=== PATIENT | female | born 1965 | race Caucasian/White ===

== ENCOUNTER 2018-12-07 09:43 | Inpatient (IN) | payer MEDICARE, OTHER ==
[2018-12-07] VITALS (8 sets, daily range): BP systolic 93–124; BP diastolic 53–58
[~2018-12-07] VITALS: Ht 157.5 cm; Wt 65.8 kg
[2018-12-07 10:34] LABS: BASOPHILS # (AUTO) 0.1 (0.0-0.1); BASOPHILS % 0.6 % (0.0-1.0); EOSINOPHILS # (AUTO) 0.7 (0.0-0.4); EOSINOPHILS % 9.2 % (0.0-6.0); LYMPHOCYTES # (AUTO) 2.4 (1.0-3.2); LYMPHOCYTES % 30.8 % (18.0-39.1); MEAN CORPUSCULAR HEMOGLOBIN 28.6 pg (28-32); MEAN CORPUSCULAR HGB CONC 30.8 g/dL (31-35); MEAN CORPUSCULAR VOLUME 92.6 fL (81-99); MONOCYTES # (AUTO) 0.8 (0.2-0.8); MONOCYTES % 10.4 % (4.4-11.3); NEUTROPHILS # (AUTO) 3.8 (2.1-6.9); NEUTROPHILS % 48.4 % (38.7-80.0); PLATELET COUNT 91 x10e3/uL (140-360); RED BLOOD COUNT 2.31 x10e6/uL (3.6-5.1); RED CELL DISTRIBUTION WIDTH 20.8 % (11.7-14.4)
[2018-12-07 10:49] LABS: ALBUMIN 0.9 g/dL (3.5-5.0); ALBUMIN/GLOBULIN RATIO 0.2 (0.8-2.0); ANION GAP 13.5 mmol/L (8-16); CALCIUM 8.8 mg/dL (8.4-10.2); CREATININE, SERUM 2.66 mg/dL (0.57-1.11); HEMOGLOBIN 6.6 g/dL (12.0-16.0); POTASSIUM 3.5 mmol/L (3.5-5.1)
[2018-12-07 10:50] LABS: HEMATOCRIT 21.4 % (34.2-44.1)
[2018-12-07] MEDS ORDERED: SODIUM CHLORIDE 0.9% 250ML 250 ML IV ONE (11:00)
[2018-12-07 11:01] LABS: BILIRUBIN,URINE NEGATIVE (NEGATIVE); CLARITY,URINE CLOUDY (CLEAR); COLOR,URINE YELLOW (YELLOW); KETONES,URINE NEGATIVE (NEGATIVE); LEUKOCYTE ESTERASE ,URINE 2+ (NEGATIVE); NITRITE,URINE NEGATIVE (NEGATIVE); PROTEIN,URINE DIPSTICK 1+ (NEGATIVE); URINE UROBILINOGEN 0.2 mg/dL (0.2 - 1)
[2018-12-07] MEDS ORDERED: SODIUM CHLORIDE 0.9% 1000ML 1,000 ML IV SCH (11:17)
[2018-12-07 11:19] LABS: WBC,URINE (MAN) 21-50 /HPF (0-5); YEAST,URINE FEW
[2018-12-07] MEDS ORDERED: ONDANSETRON HCL INJ 2MG/ML 2ML 2 MG/ML VIAL IV PRN (11:30)
[2018-12-07] MEDS: HYDROCODONE/APAP 10MG-325MG TAB PO PRN ×2 (11:46→19:22)
[2018-12-07 11:55] LABS: EPITHELIAL CELLS,URINE FEW /LPF
[2018-12-07 11:56] LABS: BACTERIA,URINE MODERATE /HPF
[2018-12-07] MEDS ORDERED: CEFTRIAXONE SOD 1 GM/NS 50 ML 50 ML IV SCH (12:00)
--- NOTE | 2018-12-07 12:34 | NUR ---
RCD PT FROM ER BY STRETCHER PT IS ALERT AND ORIENTED PT RESTING ON BED NO SIGNS OF ANY DISTRESS NOTED IV PATENT VITALS CHECKED ,ADMISSION ASSESSMENT DONE PRESSURE SORE STAGE IV ON THE SACRUM ,PEDRO ON LEFT LOWER ABDOMEN AND DOMINICK DRAIN OVER THERE WITH SEROUS DRAIN PT IN SPC CLOUDY URINE REDNESS CELLULITIS AND BULLAE ON BOTH LOWER LEG AND STAGE 3 WOUND ON RIGHT HEEL BOWEL MOVEMENT ON TODAY ,PT ON AIR MATRASS AND HEEL PROTECTOR INSTRUCTED PT REGARDING HOSPITAL POLICY AND ROUTINE BED LOW AND LOCKED CALL LIGHT IN REACH
[2018-12-07] MEDS ORDERED: SODIUM CHLORIDE 0.45% 1,000 ML IV ONE (13:15)
--- NOTE | 2018-12-07 13:54 | Pre Op History & Physical ---
CHIEF COMPLAINT: Anemia and decubitus ulcer. HISTORY OF PRESENT ILLNESS: The patient is a 53-year-old woman. She has a history of cirrhosis and thrombocytopenia. She has a history of chronic renal problems and some retroperitoneal bleeding. She has chronic renal insufficiency as a result of this. She was recently hospitalized at [facility] and required care in the intensive care unit with IV antibiotics. Hospital course was complicated by a hematoma in the abdominal wall. She required an evacuation and had a DOMINICK drain placed. She was subsequently sent to [facility] for IV antibiotics and wound care. On a routine blood draw, her hemoglobin was found to be 6.6 and she was transferred to the ER. The patient notes some fatigue. She also has a decubitus ulcer in her sacral area as well as some pain and swelling in her legs. PAST SURGICAL HISTORY: 1. Status post evacuation of abdominal wall hematoma. 2. History of prior urological problems. PAST MEDICAL HISTORY: 1. Cirrhosis. 2. Thrombocytopenia. 3. Decubitus ulcer. SOCIAL HISTORY: The patient is not an active smoker. She is not an active drinker. She lives in a [facility]. FAMILY HISTORY: Family history is noncontributory. REVIEW OF SYSTEMS: She has no fever. She has no headache. She has no neck pain. She is not having any chest pain. She does note some abdominal swelling, but no nausea or vomiting. She has no dyspnea. She has bilateral leg edema. She also has erythema and swelling of the legs. She has a decubitus ulcer in her sacral area. PHYSICAL EXAMINATION: VITAL SIGNS: The patient is afebrile. The blood pressure is 114/72 and the pulse is 96. Saturation is 98%. HEENT: Shows no facial swelling or erythema. The oropharynx is normal. LYMPHATIC: Shows no submandibular, cervical, or supraclavicular adenopathy. CARDIAC: Reveals regular rate and rhythm with normal S1 and S2. There are no murmurs or rubs. RESPIRATORY: Auscultation of lungs show decreased breath sounds at the bases. There is no wheezing. ABDOMEN: Soft. There is some ascites. There is still a DOMINICK drain in place. EXTREMITIES: There is a stage 3-4 decubitus ulcer in the sacrum. The patient also has chronic leg edema with some ulcerations. LABORATORY DATA: BUN to creatinine ratio is 54 to 2.66 and the total bilirubin is 2.2. The AST is 126 and the alkaline phosphatase is 903. The hemoglobin is 6.6 and the platelet count is 91. IMPRESSION: 1. Anemia secondary to chronic blood loss. 2. Cirrhosis with ascites. 3. Stage 3 decubitus ulcer. 4. Recent abdominal wall hematoma. 5. Chronic leg edema. 6. Chronic renal failure. PLAN: 1. The patient will receive a blood transfusion. 2. She will have a wound care consult and appropriate antibiotics. 3. General Surgery will see her regarding removal of the DOMINICK drain. She will also see Urology as followup. MD LIBAN Lake/KENAN /[id number]
[2018-12-07] MEDS: DOXYCYCLINE 100MG/NS 100ML 100 ML IV SCH (14:00)
--- NOTE | 2018-12-07 14:19 | NUR ---
CHIARA AND TALKED TO ARIAS REGALADO [facility] REGARDING HOME MEDICATION LIST SHE SAID SHE WILL FAX IT
--- NOTE | 2018-12-07 15:00 | NUR ---
WOUND CARE CONSULTATION - INITIAL EVALUATION Patient admitted for low blood count. HGB 6.6 HX: Hypothyroidism, Kidney Stones, UTI, Depression, GERD, CKD, Chronic Back Pain, Parkinson's, Neuropathy, anemia, liver cirrhosis. LABS: WBC7.86 HGB6.6 HCT21.4 NEUT%48.4 ALB0.9 Heart ECHO - in progress/ results pending PATIENT VISIT: - Patient in bed calm and in good spirits. - BLE Bright Redness, with Edema +3. - Presents with BLE ulcers to anterior aspect of lower legs and dorsal foot areas, open, non-draining but tacky upon touch, round. Verbalizes large blisters from sitting up on a chair for extended periods of time about 2-3 weeks ago. Verbalizes legs always tend to swell in a dependent position and thinks that is how blisters came up. - Bilateral Heels present annular, full thickness ulcerations with base of wound to periosteum, Wound bed dry, Edges rolled. Tender to touch. - Sacral area - full thickness wound down to periosteum. Oval Shaped. Edges pink and healthy. 100% granular. Moderate drainage. IMPRESSION: 1. Sacral - Stage IV- PU - Present On Admission 2. BLE Anterior - Bullae w/ PVD 3. Left Heel -Non-Healing Stage IV- PU - Present On Admission 4. Right Heel - Non- Healing Stage IV - PU with PVD- Present on Admission RECOMMENDATION: 1. Sacral - Stage IV- PU - Present On Admission - Cleanse wound with NS and 4x4 gauze - Apply Puracol Ag+ then Cover with Maxsorb Ag+ and Allevyn Foam Sacrum Dressing Daily 2. BLE Anterior - Bullae/ PVD - - Wash BLE with Hibiclens Soap and NS Daily - Apply Polysporin and Cover open areas with Xeroform Gauze and Secure with Kerlix Wrap Daily 3. Bilateral Heel Ulcers - Stage IV- PU - POA - Cleanse wounds with NS and 4x4 gauze - Apply Silvasorb Gel and Cover with Allevyn Foam Heel Dressing Daily. 4. Continue Alternating Pressure Air Mattress 5. Turn and Reposition every 2 hours using turning clock schedule. 6. Bilateral Heelmedix Boots heel protectors while in bed. 7. Maintain HOB no greater than 30 degrees as tolerated. 8. Strict PUP Protocol Thank you for consulting with Wound Care. Addendum: 12/07/18 at 1516 by Michael Buckner RN Amended: Links added.
--- NOTE | 2018-12-07 15:00 | NUR ---
LAB SAID PT IN NEGATIVE GROUP THEY WORKING FOR THE BLOOD
--- NOTE | 2018-12-07 15:00 | NUR ---
FAXED THE AUTHORIZATION OF OLD RECORDS TO [facility]
--- NOTE | 2018-12-07 16:15 | Diagnostic Imaging Report ---
EXAM: US ABDOMEN COMPLETE DATE: 12/07/2018 12:00 AM Time stamp on exam: INDICATION: Cirrhosis COMPARISON: None TECHNIQUE: Transverse and longitudinal brunson scale and color doppler sonographic images of the upper abdomen were obtained. FINDINGS: LIVER 12.1 cm in the right midclavicular line. Coarse echogenicity, nodular contour, no masses. SPLEEN Approximately 15 cm in maximum diameter. Normal echogenicity, no masses. GALLBLADDER Multiple shadowing calculi. The gallbladder wall is thickened, measuring 5 mm, without pericholecystic fluid. Negative sonographic Real's sign. BILE DUCTS No intra nor extra-hepatic biliary dilation. Common bile duct measures 0.5 cm PANCREAS: Poorly visualized. RIGHT KIDNEY: 8.2 cm Echogenicity: Normal Collecting System: Mild hydronephrosis. Stones: None Cyst/Mass: None LEFT KIDNEY: Poorly visualized. VESSELS: Aorta: Nonaneurysmal Inferior Vena Cava: Patent Main Portal Vein: 0.7 cm, normal size with hepatopetal flow. FREE FLUID: Small volume ascites throughout the abdomen. IMPRESSION: Cirrhosis with portal hypertension evidenced by small volume ascites and splenomegaly. Cholelithiasis with gallbladder wall thickening, likely related to underlying liver disease and/or hypoproteinemia in the absence of a positive sonographic Real sign. Mild right hydronephrosis of uncertain etiology. No proximal obstructing calculus identified. Poor visualization of midline structures and the left kidney as above. Signed by: Dr. Alvarado Casas M.D. on 12/07/2018 4:11 PM
[2018-12-07] MEDS ORDERED: REMERON15 M1 PEG (17:02)
[2018-12-07] MEDS ORDERED: SUCRALFATE1 GM PO (17:05)
[2018-12-07] MEDS ORDERED: ZINC SULFATE220 MG PO (17:05)
[2018-12-07] MEDS ORDERED: VITAMIN B-1100 M1 PO (17:05)
[2018-12-07] MEDS ORDERED: MULTI-VITAMIN1 EACH PO (17:05)
[2018-12-07] MEDS ORDERED: XIFAXAN550 MG PO (17:05)
[2018-12-07] MEDS ORDERED: ASCORBIC ACID500 MG PO (17:05)
[2018-12-07] MEDS ORDERED: NORCO 5-325 TA1 EACH PO (17:05)
[2018-12-07] MEDS ORDERED: ULTRAM50 MG PO (17:05)
[2018-12-07] MEDS ORDERED: LEVOTHYROXINE50 MCG PO (17:56)
[2018-12-07] MEDS ORDERED: ASPIR 8181 MG PO (17:56)
[2018-12-07] MEDS ORDERED: FAMOTIDINE20 MG PO (17:56)
[2018-12-07] MEDS ORDERED: FUROSEMIDE40 MG PO (17:56)
[2018-12-07] MEDS ORDERED: FERROUS SULFAT325 M1 PO (17:56)
[2018-12-07] MEDS ORDERED: WELLBUTRIN SR150 MG PO (17:56)
--- NOTE | 2018-12-07 18:01 | NUR ---
TALKED TO LAB IS THE BLOOD IS READY TO TRANSFUSE THEY SAID NOT YET
--- NOTE | 2018-12-07 18:39 | NUR ---
PT RESTING ON BED BED SIDE REPORT GIVEN TO ONCOMING NURSE
--- NOTE | 2018-12-07 20:47 | Diagnostic Imaging Report ---
Exam: Abdominal film Clinical History: Evaluate left stones and stent Comparison: None. DISCUSSION: Exam is markedly limited by patient rotation. Left double-J internal ureteral stent in place with the upper pigtail projecting in the region of the left renal pelvis and lower pigtail in the region of the bladder. Multiple radiopaque densities project over the right renal shadow, with a multilobulated radiopaque density in projecting in the superior aspect, likely representing portion of a staghorn calculus. No significant encrustation. A radiopaque catheter projects over the left lower abdomen with tip terminating in the region of the pelvis. No acute bony abnormalities. IVC filter in place. Likely left-sided pleural effusion and associated atelectatic changes. IMPRESSION: 1. Left double-J internal ureteral stent in place. 2. Left staghorn calculus. The staff physician below has personally reviewed this exam on the date of dictation. Signed by: Dr. Ivan Porras M.D. on 12/07/2018 8:43 PM
[2018-12-07] MEDS ORDERED: SODIUM CHLORIDE 0.9% 250ML 250 ML ONE (21:52)
--- NOTE | 2018-12-07 22:20 | NUR ---
1st unit of PRBC given via JACKELINE PICC line.
[2018-12-07] MEDS ORDERED: MORPHINE SULFATE INJ 4 MG/ML INJ 1ML IV PRN (22:45)
--- NOTE | 2018-12-07 22:50 | NUR ---
Spoke with Dr. Dill regarding patients pain level. Ok to give morphine 3mg prn q4.
[2018-12-08] VITALS (7 sets, daily range): BP systolic 93–106; BP diastolic 46–56
--- NOTE | 2018-12-08 01:10 | NUR ---
1st unit of blood PRBC completed at this time. Patient tolerated well. RADHA.
[2018-12-08] MEDS: DOXYCYCLINE 100MG/NS 100ML 100 ML IV SCH ×2 (01:23→13:00)
[2018-12-08] MEDS ORDERED: SODIUM CHLORIDE 0.9% 250ML 250 ML ONE (02:29)
--- NOTE | 2018-12-08 02:40 | NUR ---
2nd Unit of PRBC started at this time. RADHA. Will continue to monitor. Denies pain at this time.
[2018-12-08] MEDS ORDERED: SODIUM CHLORIDE 0.9% 1000ML 1,000 ML ONE (05:09)
--- NOTE | 2018-12-08 05:17 | NUR ---
2nd PRBC transfusion completed at this time. RADHA.
--- NOTE | 2018-12-08 06:45 | NUR ---
Dr. Mckeon here for rounding. Stated he will monitor mervat in the abd and will possible remove in 24 hrs.
--- NOTE | 2018-12-08 07:08 | Consultation ---
DATE OF CONSULTATION: 12/08/2018 REFERRING PHYSICIAN: Dr. Dalton Dill. HISTORY OF PRESENT ILLNESS: The patient is a 53-year-old female known to me. She was hospitalized at [facility] recently with multiple medical problems, but was seen by me for a large abdominal wall hematoma, which required surgery to evacuate the hematoma. [facility], was admitted to the hospital here with anemia. She has a drain in still from the evacuation of hematoma. The patient has no specific complaints. PAST MEDICAL HISTORY: Detailed in chart from recent admissions. PHYSICAL EXAMINATION: The patient is awake and alert. The abdomen is mildly distended, but soft. There is a surgical wound on the left side of the abdomen with mervat in place. There is a drain in place. The drain has serous fluid output at 150 mL in 12 hours. ASSESSMENT: A 53-year-old female, status post evacuation hematoma from abdominal wall. Frederick may be removed. We will monitor the output from the drain and likely this can be removed soon. Thank you for asking me to see Ms. Leach. MD YANG Dorado/KENAN /[id number]
--- NOTE | 2018-12-08 07:10 | NUR ---
RCD PT AT BED PT IS ALERT AND ORIENTED PT RESTING ON BED IV PATENT BED KEANE DRAINING BY GRAVITY CLOUDY URINE TURNED THE PT TO RIGHT SIDE LOW AND LOCKED CALL LIGHT IN REACH
[2018-12-08 08:14] LABS: BASOPHILS # (AUTO) 0.1 (0.0-0.1); BASOPHILS % 0.8 % (0.0-1.0); EOSINOPHILS # (AUTO) 0.6 (0.0-0.4); EOSINOPHILS % 9.1 % (0.0-6.0); HEMATOCRIT 25.1 % (34.2-44.1); LYMPHOCYTES # (AUTO) 2.2 (1.0-3.2); LYMPHOCYTES % 33.1 % (18.0-39.1); MEAN CORPUSCULAR HEMOGLOBIN 28.9 pg (28-32); MEAN CORPUSCULAR HGB CONC 31.9 g/dL (31-35); MEAN CORPUSCULAR VOLUME 90.6 fL (81-99); MONOCYTES # (AUTO) 0.6 (0.2-0.8); MONOCYTES % 9.3 % (4.4-11.3); NEUTROPHILS # (AUTO) 3.1 (2.1-6.9); NEUTROPHILS % 47.1 % (38.7-80.0); PLATELET COUNT 88 x10e3/uL (140-360); RED BLOOD COUNT 2.77 x10e6/uL (3.6-5.1); RED CELL DISTRIBUTION WIDTH 19.2 % (11.7-14.4)
[2018-12-08 08:32] LABS: ALBUMIN 0.9 g/dL (3.5-5.0); ALBUMIN/GLOBULIN RATIO 0.2 (0.8-2.0); CREATININE, SERUM 2.42 mg/dL (0.57-1.11)
[2018-12-08] MEDS: SILVER ANTIMICROBIAL WOUND GEL 45ML TP SCH (09:00)
[2018-12-08] MEDS: BACITRACIN/POLYMYXIN 30 GM OINT TP SCH (09:00)
--- NOTE | 2018-12-08 10:00 | NUR ---
PT ON HEEL MEDIX BOOTS ON BOTH LEGS
[2018-12-08] MEDS ORDERED: BUPROPION HCL SR 150 MG TAB PO SCH (14:45)
[2018-12-08] MEDS: RIFAXIMIN 550 MG TABLET PO SCH (14:45)
[2018-12-08] MEDS: HYDROCODONE/APAP 5MG-325MG TAB PO PRN ×2 (16:07→23:09)
--- NOTE | 2018-12-08 16:14 | NUR ---
Nutrition Intervention Note RD Recommendation(s) for Physician: -Continue current diet as ordered -Rec Damien BID for wound healing -Rec Ensure Compact TID to increase protein-calorie intake -Continue MVi w/ minerals, vitamin C, zinc sulfate for 10 days to support healing Plan of Care: RD following, monitoring for tolerance and adequacy, ONS supplement Nutrition reason for involvement: MD Consult RD Assessment (12/08) 53yo F, who was admitted for anemia. Pt was discussed during AM rounds. Pt came from [facility] and in bedbound status. Pt had a recent surgery for abdominal wall hematoma with mervat present; GI following. Abd US showed cirrhosis with small amount of ascites. Currently on IVF and abx. Wound care consulted for multiple pressure ulcers. Visited pt in the room. Pt reported good appetite without any nausea or vomiting. Pt ate 100% of her lunch today, per observation. Pt has some missing teeth but refused texture modification. Pt denied any swallowing difficulty. Pt reported some weight loss with UBW ~180lbs (unknown time period when weight loss started). No physical sign of muscle and fat loss per NFPA. RD offered ONS recommended above and pt was agreeable with plan. Will continue to monitor and follow. Principal Problems/Diagnoses: 1. Anemia secondary to chronic blood loss. 2. Cirrhosis with ascites. 3. Stage 3 decubitus ulcer. 4. Recent abdominal wall hematoma. PMH: Hypothyroidism, Kidney Stones, UTI, Depression, GERD, CKD, Chronic Back Pain, Parkinson's, Neuropathy, anemia, liver cirrhosis. GI: abdomen soft, non-tender, round, flatus present Skin: 1. Sacral - Stage IV- PU - Present On Admission 2. BLE Anterior - Bullae w/ PVD 3. Left Heel -Non-Healing Stage IV- PU - Present On Admission 4. Right Heel - Non- Healing Stage IV - PU with PVD- Present on Admission Labs: (12/08) K 3.0 L, BUN 53 H, Creatinine 2.42 H, Ca 8.0 L, AST 100 H, Alk phos 883 H Meds: reviewed Ht: 62in Wt: 145lb BMI: 26.5kg/m2 IBW: 110lb Malnutrition Evaluation (12/08) The patient does not meet criteria for a specified degree of malnutrition at this time. Will re-evaluate at follow-up as appropriate. Nutrition Prescription (Diet Order): regular diet Estimated Nutritional Needs: Calories: 1320 1650kcal (20-25kcal/kg/d) Weight used : actual BW Protein : 132 165g(2-2.5g/kg/d) Weight used: actual BW Diet Adequacy: Meeting calorie needs, Not meeting protein needs Diet Education Needs Assessment: Diet education indicated, but patient not appropriate for education at this time. Nutrition Care Level: mod Nutrition Diagnosis: Increased protein needs related to altered skin integrity as evidenced by multiple pressure ulcers. Goal: Patient will meet 75-100% of estimated needs by follow up Progress: N/A Interventions: General healthful diet, Commercial beverage, Commercial food, Multivitamin/mineral supplement therapy Monitoring/Evaluation: Total energy intake, Total protein intake, Modified diet, Liquid supplement, Weight change Signed: Maxine Hernández MS, RD, LD
[2018-12-08] MEDS: SUCRALFATE 1 GM TAB PO SCH ×2 (16:30→20:02)
[2018-12-08] MEDS: FERROUS SULFATE 325 MG TAB PO SCH (16:48)
--- NOTE | 2018-12-08 16:50 | Progress Note ---
DATE: SUBJECTIVE: The patient had a blood transfusion yesterday. Her hemoglobin has increased to 8. She is not complaining of pain. She has no fevers. She was seen by Urology and General Surgery yesterday. PHYSICAL EXAMINATION: VITAL SIGNS: The patient is afebrile. The blood pressure is 93/55 and the saturation is 97%. The pulse is 89. HEENT: Shows no facial swelling or erythema. The nasal mucosa is normal. LYMPHATIC: Shows no submandibular, cervical, or supraclavicular adenopathy. CARDIAC: Reveals regular rate and rhythm with normal S1 and S2. There are no murmurs or rubs. LUNGS: Auscultation of lungs reveals decreased breath sounds at the bases. There is no wheezing. ABDOMEN: Soft, nontender. There is no rebound or guarding. There is a Rashi-Mckinney drain in the lower abdomen from the prior anterior abdominal wall hematoma evacuation. She has a decubitus ulcer stage IV on her sacral area. IMPRESSION: 1. Anemia secondary to chronic blood loss requiring transfusion. 2. Cirrhosis with ascites. 3. Thrombocytopenia. 4. Stage 4 decubitus ulcer of the sacrum. 5. Recent abdominal wall hematoma with a Rashi-Mckinney drain in place. 6. Stage 1 decubitus ulcers on the pretibial areas in both legs. 7. Stage 4 chronic renal failure. 8. Moderate protein-calorie malnutrition. PLAN: 1. Continue wound care. 2. General Surgery saw the patient and will remove the Rashi-Mckinney drain shortly. 3. Continue to monitor electrolytes and renal status. 4. Wound care. 5. Nutritional consultation. 6. Physical therapy. MD LIBAN Lake/KENAN /[id number]
--- NOTE | 2018-12-08 19:00 | NUR ---
PT RESTING ON BED BED SIDE REPORT GIVEN TO ONCOMING NURSE
[2018-12-08] MEDS: BUPROPION HCL 100 MG TAB PO SCH (20:02)
--- NOTE | 2018-12-08 20:40 | Consultation ---
DATE OF CONSULTATION: REASON FOR CONSULTATION: UTI. HISTORY OF PRESENT ILLNESS: This patient who is a very pleasant 53-year-old white female, who has history of liver cirrhosis, history of thrombocytopenia, history of chronic renal disease, and chronic renal insufficiency. She was recently in [facility], had to be in intensive care unit on IV antibiotic. She had hematoma in abdominal wall. She required evacuation, had DOMINICK drain placed. She was then transferred to [facility] for IV antibiotic and wound care. She is transferred back here because her hemoglobin was 6.6. The patient is currently lying in bed comfortably. She says she is feeling better. She is fatigued overall. There is no fever, no chills. She has been getting progressively debilitated and she developed decubitus ulcer in sacral area. As mentioned above, she is currently lying in bed comfortably. She does have a chronic Gibson catheter. PAST MEDICAL HISTORY: Liver cirrhosis, thrombocytopenia, and decubitus ulcer. PAST SURGICAL HISTORY: Evacuation of abdominal wall hematoma and several urological procedures before. ALLERGIES: NKA. SOCIAL HISTORY: There is no smoking, drug abuse, or alcohol abuse. Currently from a snf. FAMILY HISTORY: Noncontributory. REVIEW OF SYSTEMS: HEENT: Negative. PULMONARY: Negative. CARDIAC: Negative. : Negative. GENERAL: Just weak. No fever. No chills. LABORATORY DATA: Reviewed. Her wound culture, no growth. Her hemoglobin when she first came, was 6.6, today is 8.0. Her sodium 142, potassium 3.0, creatinine of 2.42, glucose 76, and alkaline phosphatase is 883. PHYSICAL EXAMINATION: GENERAL: She is currently alert, oriented, does not seem to be in acute distress. VITAL SIGNS: Stable, currently afebrile. HEENT: She does not appear icteric. NECK: Supple. No JVD. No lymphadenopathy. No thyromegaly. CHEST: Clear bilateral. HEART: S1 and S2. No S3, S4, or murmur. ABDOMEN: Soft. Bowel sounds present. No tenderness. No hepatosplenomegaly. DOMINICK drain as above. EXTREMITIES: No edema. SKIN: No rash. IMPRESSION: 1. Abdominal wall hematoma drained, now with serosanguineous drainage. I believe the drainage at present time is because the patient does have history of liver cirrhosis with ascites and third spacing. 2. Liver cirrhosis, I presume it has been worked up before. We will discuss with Dr. Dill. 3. Stage III decubitus ulcer. 4. Chronic kidney disease. 5. Bilateral lower extremities edema. 6. Anemia on admission, probably GI bleed, transfuse, seem to be stable. From Infectious Disease point of view, I think we can discontinue antibiotic. Continue with local care. 7. Bacteriuria. The patient with chronic Gibson catheter. 8. We will discuss with attending. We can discontinue antibiotic and observe the patient clinically for now. MD TULIO Jesus/MODL /[id number]
[2018-12-09] VITALS (8 sets, daily range): BP systolic 100–127; BP diastolic 56–64
[2018-12-09] MEDS: RIFAXIMIN 550 MG TABLET PO SCH ×2 (03:45→15:34)
[2018-12-09] MEDS: LEVOTHYROXINE SODIUM 50 MCG TAB PO SCH (05:54)
[2018-12-09] MEDS: HYDROCODONE/APAP 5MG-325MG TAB PO PRN (05:55)
[2018-12-09 05:56] LABS: BASOPHILS # (AUTO) 0.1 (0.0-0.1); BASOPHILS % 0.7 % (0.0-1.0); EOSINOPHILS # (AUTO) 0.5 (0.0-0.4); HEMATOCRIT 24.7 % (34.2-44.1); HEMOGLOBIN 7.8 g/dL (12.0-16.0); LYMPHOCYTES # (AUTO) 2.2 (1.0-3.2); LYMPHOCYTES % 32.3 % (18.0-39.1); MEAN CORPUSCULAR HEMOGLOBIN 28.8 pg (28-32); MEAN CORPUSCULAR HGB CONC 31.6 g/dL (31-35); MEAN CORPUSCULAR VOLUME 91.1 fL (81-99); MONOCYTES # (AUTO) 0.6 (0.2-0.8); MONOCYTES % 8.3 % (4.4-11.3); NEUTROPHILS # (AUTO) 3.4 (2.1-6.9); NEUTROPHILS % 50.1 % (38.7-80.0); PLATELET COUNT 96 x10e3/uL (140-360); RED BLOOD COUNT 2.71 x10e6/uL (3.6-5.1); RED CELL DISTRIBUTION WIDTH 19.7 % (11.7-14.4)
[2018-12-09 06:14] LABS: ALBUMIN 0.9 g/dL (3.5-5.0); ALBUMIN/GLOBULIN RATIO 0.2 (0.8-2.0); ANION GAP 11.1 mmol/L (8-16); CALCIUM 8.1 mg/dL (8.4-10.2); CREATININE, SERUM 2.32 mg/dL (0.57-1.11); POTASSIUM 3.1 mmol/L (3.5-5.1)
--- NOTE | 2018-12-09 09:00 | NUR ---
Dr. Rui Luna replaced suprapubic catheter at this time. Patient tolerated well. Clamped tubing for urine culture. Will collect.
[2018-12-09] MEDS: BUPROPION HCL 100 MG TAB PO SCH ×2 (10:37→20:20)
[2018-12-09] MEDS: FERROUS SULFATE 325 MG TAB PO SCH ×2 (10:37→17:20)
[2018-12-09] MEDS: ZINC SULFATE 220 MG CAP PO SCH (10:37)
[2018-12-09] MEDS: ASCORBIC ACID 500 MG TAB PO SCH (10:37)
[2018-12-09] MEDS: ASPIRIN 81 MG CHEW TAB PO SCH (10:37)
[2018-12-09] MEDS: POTASSIUM CHLORIDE 20 MEQ TAB CR PO SCH (10:37)
[2018-12-09] MEDS: MULTIVITAMINS/MINERALS TAB PO SCH (10:37)
[2018-12-09] MEDS: SUCRALFATE 1 GM TAB PO SCH ×4 (10:37→20:20)
--- NOTE | 2018-12-09 12:54 | Progress Note ---
DATE: SUBJECTIVE: The patient had a low-grade temperature to 99.8 this morning. She is not complaining of any cough or chest pain. Her DOMINICK drain was removed by General Surgery. Her suprapubic catheter was changed by Urology. OBJECTIVE: VITAL SIGNS: Blood pressure is 110/60 and saturation is 94%. The pulse is 79. HEENT: Shows no facial swelling or erythema. The nasal mucosa is normal. The oropharynx is normal. LYMPHATIC: Shows no submandibular, cervical, or supraclavicular adenopathy. CARDIAC: Reveals a regular rate and rhythm with normal S1, S2. There are no murmurs or rubs heard. HEART: Auscultation of lungs reveals decreased breath sounds at the bases. There is no wheezing. ABDOMEN: Soft, nontender. There is no rebound or guarding. EXTREMITIES: Shows chronic edema in the lower extremities and stage I breakdown on the tibial surfaces. Examination of sacrum shows stage IV decubitus ulcer. IMPRESSION: 1. Cirrhosis with portal hypertension and splenomegaly. 2. Thrombocytopenia. 3. Stage IV decubitus ulcer. 4. Chronic renal failure, stage 4. 5. Anemia, unspecified. PLAN: 1. Continue to observe the patient off antibiotics. 2. Repeat cultures are pending. 3. Continue current wound care. 4. Physical Therapy. 5. Supplemental nutrition. 6. Continue current regimen for cirrhosis. Dalton Dill MD LMH/MODL /[id number]
[2018-12-09] MEDS: SILVER ANTIMICROBIAL WOUND GEL 45ML TP SCH (12:59)
[2018-12-09] MEDS: BACITRACIN/POLYMYXIN 30 GM OINT TP SCH (12:59)
--- NOTE | 2018-12-09 13:01 | NUR ---
WOUND CARE CONSULTATION - INITIAL EVALUATION Patient admitted for low blood count. HGB 6.6 HX: Hypothyroidism, Kidney Stones, UTI, Depression, GERD, CKD, Chronic Back Pain, Parkinson's, Neuropathy, anemia, liver cirrhosis. Dr. Mckeon on case for recent SX history of Abd Hematoma Tx. LABS: WBC7.86 HGB6.6 HCT21.4 NEUT%48.4 ALB0.9 PATIENT VISIT: - Patient in bed calm and in good spirits. - BLE Bright Redness, with Edema +3. BLE weeping on dependent position. Patient at bedside dangling feet. Drainage to Dorsal Foot areas. - Recent history of using Unna Boots but unable to tolerate and had them removed. Verbalizes not to want compression. It is too painful. - Bilateral Heels present annular, full thickness ulcerations with base of wound to periosteum, Wound bed moist, Edges rolled. Tender to touch. Appears to be improving. - BLE Ulcerations improving. - Sacral area - full thickness wound down to periosteum. Oval Shaped. Edges pink and healthy. 100% granular. Moderate drainage. IMPRESSION: 1. Sacral - Stage IV- PU - Present On Admission ( HEALING SLOW) 2. BLE Anterior - Bullae w/ PVD ( HEALING SLOW) 3. Left Heel -Non-Healing Stage IV- PU - Present On Admission ( HEALING SLOW) 4. Right Heel - Non- Healing Stage IV - PU with PVD- Present on Admission ( HEALING SLOW) RECOMMENDATION: Continue Current Treatment Plan: Safe to discharge with current treatment orders. 1. Sacral - Stage IV- PU - Present On Admission - Cleanse wound with NS and 4x4 gauze - Apply Puracol Ag+ then Cover with Maxsorb Ag+ and Allevyn Foam Sacrum Dressing Daily 2. BLE Anterior - Bullae/ PVD - - Wash BLE with Hibiclens Soap and NS Daily - Apply Polysporin and Cover open areas with Xeroform Gauze and Secure with Kerlix Wrap Daily 3. Bilateral Heel Ulcers - Stage IV- PU - POA - Cleanse wounds with NS and 4x4 gauze - Apply Silvasorb Gel and Cover with Allevyn Foam Heel Dressing Daily. 4. Continue Alternating Pressure Air Mattress 5. Turn and Reposition every 2 hours using turning clock schedule. 6. Bilateral Heelmedix Boots heel protectors while in bed. 7. Maintain HOB no greater than 30 degrees as tolerated. 8. Strict PUP Protocol Thank you for consulting with Wound Care. Addendum: 12/09/18 at 1307 by Michael Buckner RN Amended: Links added. Addendum: 12/09/18 at 1309 by Michael Buckner RN FOLLOW UP VISIT
--- NOTE | 2018-12-09 15:07 | NUR ---
PT SIGNED CHOICE TO RETURN BACK TO [facility], FAXED CLINICALS TO FACILITY, SHE ALSO WAS EDUCATED ABOUT IMM SIGNED COPY FILED I CHART AND LEFT COPY AT BEDSIDE WITH PT FOR HER RECORDS. SHE ASKED FOR CLOTHING DONATIONS I REDIRECTED HER TO HER FACILITY FOR THAT REFERRAL WE DO NOT HAVE A COMMUNITY CLOSET AVAILABLE.
[2018-12-09] MEDS: HYDROCODONE/APAP 10MG-325MG TAB PO PRN (20:41)
[2018-12-10] VITALS (7 sets, daily range): BP systolic 94–126; BP diastolic 53–80
[2018-12-10] MEDS: RIFAXIMIN 550 MG TABLET PO SCH ×2 (03:10→15:04)
[2018-12-10] MEDS: LEVOTHYROXINE SODIUM 50 MCG TAB PO SCH (05:20)
[2018-12-10] MEDS: HYDROCODONE/APAP 10MG-325MG TAB PO PRN ×3 (05:22→20:35)
[2018-12-10] MEDS: SUCRALFATE 1 GM TAB PO SCH ×4 (09:17→20:34)
[2018-12-10] MEDS: POTASSIUM CHLORIDE 20 MEQ TAB CR PO SCH (09:17)
[2018-12-10] MEDS: ASCORBIC ACID 500 MG TAB PO SCH (09:17)
[2018-12-10] MEDS: ASPIRIN 81 MG CHEW TAB PO SCH (09:17)
[2018-12-10] MEDS: FERROUS SULFATE 325 MG TAB PO SCH ×2 (09:17→17:20)
[2018-12-10] MEDS: ZINC SULFATE 220 MG CAP PO SCH (09:17)
[2018-12-10] MEDS: BUPROPION HCL 100 MG TAB PO SCH ×2 (09:17→20:34)
[2018-12-10] MEDS: MULTIVITAMINS/MINERALS TAB PO SCH (09:17)
[2018-12-10] MEDS: BACITRACIN/POLYMYXIN 30 GM OINT TP SCH (13:14)
[2018-12-10] MEDS: SILVER ANTIMICROBIAL WOUND GEL 45ML TP SCH (13:15)
--- NOTE | 2018-12-10 16:25 | Discharge Summary ---
DISCHARGE DIAGNOSES: 1. Cirrhosis with portal hypertension and splenomegaly. 2. Thrombocytopenia. 3. Stage IV decubitus ulcer on the sacrum. 4. Chronic renal failure, stage 4. 5. Anemia, unspecified. 6. 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 CONSULTING PHYSICIANS: 1. Dr. Black of Infectious Disease. 2. Dr. Luna of Urology. 3. Dr. Mckeon of General Surgery. DISCHARGE MEDICATIONS: 1. Aspirin 81 mg p.o. daily. 2. Wellbutrin SR 125 mg p.o. q.12h. 3. Vitamin C 500 mg p.o. daily. 4. Famotidine 20 mg p.o. b.i.d. 5. Ferrous sulfate 325 mg p.o. b.i.d. 6. Furosemide 40 mg p.o. daily. 7. Fountain 5/325 one p.o. q.6h. p.r.n. 8. Synthroid 50 mcg p.o. daily. 9. Remeron 7.5 mg p.o. at bedtime. 10. Rifaximin 550 mg p.o. q.12h. 11. Sucralfate 1 p.o. at bedtime and before meals. 12. Tramadol p.r.n. 13. Zinc sulfate 220 mg p.o. daily. HISTORY OF PRESENT ILLNESS: The patient is a 53-year-old woman. She has history of cirrhosis and thrombocytopenia. She has chronic pyelonephritis and chronic renal insufficiency. She also has a history of abdominal bleed that required evacuation. She has been at [facility]. She came in because her hemoglobin was found to be 6.6. HOSPITAL COURSE: The patient was admitted. She received a blood transfusion. She was subsequently seen by General Surgery. The Rashi-Mckinney drain was removed from a prior surgical site. She was also seen in consultation by Urology and by Wound Care. The patient was seen by Infectious Disease. The vancomycin-resistant Enterococcus in her urine was felt to be a chronic colonizer. Her suprapubic catheter was changed. She was observed off antibiotics and had no fevers. She received physical therapy. DISPOSITION: The patient will be discharged to [facility]. MD LIBAN Lake/MODL /[id number]
--- NOTE | 2018-12-10 19:45 | NUR ---
attempted to call for report x2. No one picked up the phone. Notified greenhouse instructor and case management
--- NOTE | 2018-12-10 20:10 | NUR ---
received call ed from Court Year. Gave report to supervisor [employer] Maxine. notified charge nurse and called ambulance
--- NOTE | 2018-12-10 21:10 | NUR ---
EMS HERE TO PROBLEM MANAGER PT AND TRANSFER TO COURT Y[facility] PER MD ORDER WITH ALL BELONGING. VITAL SIGN STABLE AT THIS TIME
== END 2018-12-10 22:00 | DRG 811 ==
LOC: ER 09:43 → ERHOLD 11:30 → MED/SURG2 12:37
PROVIDERS: ADMIT Internal Medicine Critical Care Medicine; ATTEND Internal Medicine Critical Care Medicine
PROC: 30233N1 Transfusion of Nonautologous Red Blood Cells into Peripheral Vein, Percutaneous Approach (ICD-10-PCS; principal; 2018-12-07)
DX: D50.0 Iron deficiency anemia secondary to blood loss (chronic) (principal); L89.154 Pressure ulcer of sacral region, stage 4; R18.8 Other ascites; N18.4 Chronic kidney disease, stage 4 (severe); E44.0 Moderate protein-calorie malnutrition; K76.6 Portal hypertension; R31.29 Other microscopic hematuria; Z98.890 Other specified postprocedural states; K74.60 Unspecified cirrhosis of liver; R82.71 Bacteriuria; D69.6 Thrombocytopenia, unspecified; L89.891 Pressure ulcer of other site, stage 1; Z68.26 Body mass index [BMI] 26.0-26.9, adult; R16.1 Splenomegaly, not elsewhere classified; B95.2 Enterococcus as the cause of diseases classified elsewhere; Z16.21 Resistance to vancomycin; E03.9 Hypothyroidism, unspecified; Z79.82 Long term (current) use of aspirin
CPT/HCPCS: 36415; 74018; 76700; 80053; 81001; 85025; 86850; 86900; 86920; 87071; 87086; 87186; 87205; 93306; 97139; 99284; J0696; J2270; J7030; J7050; P9016

== ENCOUNTER 2019-01-03 02:04 | Inpatient (IN) | payer MEDICARE, OTHER ==
[2019-01-03] VITALS (14 sets, daily range): BP systolic 84–96; BP diastolic 47–67
[~2019-01-03] VITALS: Ht 157.5 cm; Wt 81.6 kg
[~2019-01-03 02:04] MED LIST: ASCORBIC ACID500 MG PO; ASPIR 8181 MG PO; FAMOTIDINE20 MG PO; FERROUS SULFAT325 M1 PO; FUROSEMIDE40 MG PO; LEVOTHYROXINE50 MCG PO; MULTI-VITAMIN1 EACH PO; NORCO 5-325 TA1 EACH PO; REMERON15 M1 PEG; SUCRALFATE1 GM PO; ULTRAM50 MG PO; VITAMIN B-1100 M1 PO; WELLBUTRIN SR150 MG PO; XIFAXAN550 MG PO; ZINC SULFATE220 MG PO
[2019-01-03] MEDS ORDERED: ETOMIDATE 2 MG/ML 10 ML INJ IV STA (02:16)
[2019-01-03] MEDS ORDERED: SUCCINYLCHOLINE 200 MG/10 ML SYR IV STA (02:16)
[2019-01-03] MEDS ORDERED: PROPOFOL IV EMULSION 10 MG/ML 50 ML VIAL IV PRN (02:30)
[2019-01-03] MEDS ORDERED: PIPER-TAZ 3.375 GM 50 ML IV STA (02:34)
[2019-01-03] MEDS ORDERED: ACETAMINOPHEN 1000 MG/100 ML IV STA (02:34)
[2019-01-03 02:44] LABS: BASOPHILS # (AUTO) 0.1 (0.0-0.1); BASOPHILS % 0.4 % (0.0-1.0); EOSINOPHILS # (AUTO) 0.1 (0.0-0.4); EOSINOPHILS % 0.6 % (0.0-6.0); HEMATOCRIT 32.2 % (34.2-44.1); HEMOGLOBIN 9.7 g/dL (12.0-16.0); LYMPHOCYTES # (AUTO) 3.4 (1.0-3.2); MEAN CORPUSCULAR HEMOGLOBIN 28.7 pg (28-32); MEAN CORPUSCULAR HGB CONC 30.1 g/dL (31-35); MEAN CORPUSCULAR VOLUME 95.3 fL (81-99); MONOCYTES # (AUTO) 1.1 (0.2-0.8); MONOCYTES % 6.6 % (4.4-11.3); NEUTROPHILS # (AUTO) 11.2 (2.1-6.9); NEUTROPHILS % 70.1 % (38.7-80.0); PLATELET COUNT 115 x10e3/uL (140-360); RED BLOOD COUNT 3.38 x10e6/uL (3.6-5.1); RED CELL DISTRIBUTION WIDTH 17.5 % (11.7-14.4)
[2019-01-03 02:53] LABS: BACTERIA,URINE MANY /HPF; EPITHELIAL CELLS,URINE FEW /LPF; RBC,URINE >50 /HPF (0-5)
[2019-01-03 02:56] LABS: INR 1.06; PROTHROMBIN TIME 14.3 seconds (11.9-14.5)
[2019-01-03 02:57] LABS: PARTIAL THROMBOPLASTIN TIME 51.2 seconds (23.8-35.5)
[2019-01-03 02:59] LABS: ABG PCO2 56 mmHg (41-51); ABG PH 7.25 (7.31-7.41); ABG PO2 61 mmHg (80-105)
[2019-01-03 03:00] LABS: ABG HCO3 25 mmol/L (23-28)
[2019-01-03 03:04] LABS: BILIRUBIN,URINE NEGATIVE (NEGATIVE); CLARITY,URINE CLOUDY (CLEAR); KETONES,URINE NEGATIVE (NEGATIVE); LEUKOCYTE ESTERASE ,URINE LARGE (NEGATIVE); NITRITE,URINE NEGATIVE (NEGATIVE); PROTEIN,URINE DIPSTICK 2+ (NEGATIVE); URINE UROBILINOGEN 0.2 mg/dL (0.2 - 1)
[2019-01-03 03:05] LABS: COLOR,URINE STRAW (YELLOW)
[2019-01-03 03:06] LABS: ALBUMIN 1.4 g/dL (3.5-5.0); ALBUMIN/GLOBULIN RATIO 0.2 (0.8-2.0); ANION GAP 14.2 mmol/L (8-16); CALCIUM 8.9 mg/dL (8.4-10.2); CREATININE, SERUM 1.8 mg/dL (0.57-1.11); POTASSIUM 5.2 mmol/L (3.5-5.1)
[2019-01-03 03:12] LABS: CREATINE KINASE MB 2.1 ng/mL (0-5.0)
--- NOTE | 2019-01-03 03:16 | Diagnostic Imaging Report ---
EXAMINATION: CHEST SINGLE (NOT PORTABLE) INDICATION: ^SEPSIS ^[id number] ^0243 ^Y COMPARISON: None FINDINGS: AP view TUBES and LINES: Endotracheal tube in place with tip approximately 2.3 cm above dave. LUNGS: Lungs are well inflated. Bilateral mid to lower lung field opacification, left greater than right. Pulmonary vascular congestion. PLEURA: No visible pneumothorax. HEART AND MEDIASTINUM: The cardiac silhouette is partially obscured, however appears enlarged. BONES AND SOFT TISSUES: No acute osseous lesion. Soft tissues are unremarkable. UPPER ABDOMEN: No free air under the diaphragm. IMPRESSION: Bilateral mid to lower lung field opacifications, representing layering pleural effusions/atelectasis and/or pneumonia. Enlarged cardiac silhouette and central vascular congestion. Signed by: Dr. Rafa Quintero MD on 01/03/2019 3:13 AM
[2019-01-03] MEDS ORDERED: MIDAZOLAM HCL 25 MG in SODIUM CHLORIDE 0.9% 50ML 45 ML IV PRN (03:45)
--- NOTE | 2019-01-03 05:24 | Diagnostic Imaging Report ---
EXAM: CT Abdomen and Pelvis WITHOUT contrast INDICATION: ^ABDOMEN DISTENDED ^[id number] ^0410 ^Y COMPARISON: Abdominal x-ray and ultrasound dated 12/07/2018 TECHNIQUE: Abdomen and pelvis were scanned utilizing a multidetector helical scanner from the lung base to the pubic symphysis without administration of IV contrast. Absence of intravenous contrast decreases sensitivity for detection of focal lesions and vascular pathology. Coronal and sagittal reformations were obtained. Routine protocol was performed. IV CONTRAST: None ORAL CONTRAST: None. COMPLICATIONS: None RADIATION DOSE: Total DLP: 707.47 mGy*cm Estimated effective dose: (DLP x 0.015 x size factor) mSv CTDIvol has been reviewed. It is below the limits set by the Radiation Protocol Committee (RPC). FINDINGS: LINES and TUBES: Left nephroureteral stent. Suprapubic Gibson catheter. LOWER THORAX: Bilateral bshwy-mi-btbdomqr size pleural effusions with adjacent consolidations. Groundglass opacities of the visualized right lung. HEPATOBILIARY: Cirrhotic liver. Limited for evaluation of renal parenchyma without intravenous contrast. No biliary ductal dilation. GALLBLADDER: Cholelithiasis. No wall thickening. SPLEEN: Splenomegaly. PANCREAS: No focal masses or ductal dilatation. ADRENALS: No adrenal nodules KIDNEYS/URETERS: Left renal staghorn calculi. Markedly atrophic left kidney. No left hydronephrosis. Left nephroureteral stents in place. Mild right hydronephrosis. No right renal stones. GI TRACT: No evidence of bowel obstruction. Mild colonic wall thickening. Moderate rectal stool burden, could represent fecal impaction. Normal appendix. Moderate gastric distention with fluid and air. PELVIC ORGANS/BLADDER: Bladder is collapsed by a suprapubic Gibson catheter in place, limiting evaluation. Hysterectomy. LYMPH NODES: Prominent bilateral iliac chain and retroperitoneal lymph nodes. VESSELS: Very limited evaluation without intravenous contrast. Predominantly peripheral vascular atherosclerotic disease. IVC filter in place. PERITONEUM / RETROPERITONEUM: No free air. Moderate volume ascites. BONES: Unremarkable. SOFT TISSUES: Anasarca. IMPRESSION: 1. Very limited study without intravenous contrast. 2. Cirrhotic liver with splenomegaly and moderate volume ascites. There is also anasarca and bilateral pleural effusions, suggestive of volume overload. 3. Bilateral lower lobe consolidations, representing atelectasis and/or pneumonia. Groundglass opacities of the visualized right lung, suggestive of pulmonary edema. 4. Cholelithiasis without evidence of cholecystitis. 5. Mild colonic wall thickening, likely due to underdistention and hypoalbuminemia. 6. No evidence of bowel obstruction. 7. Staghorn left renal calculi. Atrophic left kidney. No left hydronephrosis. Left nephroureteral stent in place. 8. Mild right hydronephrosis without definite evidence of obstructive urolithiasis. Signed by: Dr. Rafa Quintero MD on 01/03/2019 5:21 AM
[2019-01-03] MEDS ORDERED: FUROSEMIDE INJ 10 MG/ML 4 ML VIAL IV ONE (05:30)
[2019-01-03] MEDS ORDERED: VANCOMYCIN 1GM/NS 250 ML 250 ML IV STA (05:30)
[2019-01-03] MEDS ORDERED: SODIUM CHLORIDE FLUSH 10 ML SYR INJ PRN (05:45)
[2019-01-03] MEDS ORDERED: PIPERACILLIN/TAZO 2.25 GM 50 ML IV SCH (06:00)
[2019-01-03] MEDS ORDERED: PROPOFOL IV EMULSION 10MG/ML 100 ML ONE (06:15)
--- NOTE | 2019-01-03 06:15 | NUR ---
Received to 195 from ER. Placed on EKG, pulse ox & NBP for monitoring. Orally intubated with 7.5FR ETT. Vent settings: TV 450, FIO2 50% & PRVC 18. ETT secured @ 24cm at the lip. IV Propofol for sedation.
[2019-01-03] MEDS: RIFAXIMIN 550 MG TABLET PO SCH ×2 (08:00→20:29)
[2019-01-03] MEDS ORDERED: DEXMEDETOMIDINE HCL 200 MCG in SODIUM CHLORIDE 0.9% 50ML 48 ML IV PRN (08:00)
[2019-01-03] MEDS: LEVOTHYROXINE SODIUM 50 MCG TAB PO SCH (08:07)
--- NOTE | 2019-01-03 08:50 | Pre Op History & Physical ---
CHIEF COMPLAINT: Dyspnea, volume overload, and leukocytosis. HISTORY OF PRESENT ILLNESS: The patient is a 53-year-old woman. She has a history of cirrhosis, thrombocytopenia, and chronic renal insufficiency. She also has a history of a decubitus wound. She has been receiving wound care at [facility]. They sent her to the emergency department this morning with worsening dyspnea and tachypnea. She also had an elevated white blood cell count of 15. She required endotracheal intubation and was given IV diuretics. PAST SURGICAL HISTORY: 1. Evacuation of an abdominal wall hematoma. 2. Prior urological procedures. PAST MEDICAL HISTORY: 1. Cirrhosis. 2. Thrombocytopenia. 3. Chronic renal insufficiency. 4. Decubitus ulcer. ALLERGIES: NO KNOWN DRUG ALLERGIES. SOCIAL HISTORY: The patient stays at [facility]. She is not a smoker. She is not a drinker. FAMILY HISTORY: Family history is noncontributory. REVIEW OF SYSTEMS: The patient is afebrile. The patient did not complain of headache. There is no neck pain. She had no chest pain. She did have difficulty breathing and tachypnea. She had no abdominal pain. She has no nausea or vomiting. She does have some abdominal distention. She has a decubitus wound in the sacral area. She has some leg edema and discoloration of the lower extremities. PHYSICAL EXAMINATION: VITAL SIGNS: The patient's blood pressure is 96/53 and the pulse is 92. The respiratory rate is 22 and she is on an assist-control mode of ventilation at a rate of 18. HEENT: Shows no facial swelling or erythema. The oropharynx is normal. There is an oroendotracheal tube. CARDIAC: Reveals regular rate and rhythm with normal S1, S2. There are no murmurs or rubs heard. LUNGS: Auscultation of lungs shows decreased breath sounds at the bases. There is no wheezing. ABDOMEN: Distended. There is some ascites. There is 1 to 2+ leg edema. There is some discoloration in the legs. LABORATORY DATA: White blood cell count is 16 and hemoglobin is 9.7. The platelet count is 115. The BUN to creatinine ratio is 21 to 1.8 and the potassium is 5.2. Other electrolytes are within normal limits. The BNP is 1412. RADIOGRAPHIC DATA: CT scan of the abdomen and pelvis shows cirrhotic liver with some splenomegaly and moderate ascites. Chest x-ray shows lower lobe consolidations along with bilateral pleural effusions. There is some cholelithiasis. There is also a staghorn calculus in the left kidney. IMPRESSION: 1. Acute respiratory failure secondary to volume overload. 2. Severe sepsis from unclear source, present on admission. 3. Cirrhosis. 4. Thrombocytopenia. 5. Chronic renal failure stage 4. 6. Moderate protein-calorie malnutrition. PLAN: 1. The patient will begin Lasix 40 mg IV twice daily. 2. Wean ventilator as tolerated. 3. Enteral feedings. 4. ID consultation. 5. Wound care. Dalton Dill MD [facility]/MODL /[id number]
[2019-01-03] MEDS: ASCORBIC ACID 500 MG TAB PO SCH (09:00)
[2019-01-03] MEDS: THIAMINE HCL 100 MG TAB PO SCH (09:00)
[2019-01-03] MEDS ORDERED: NON-FORMULARY MEDICATION (Thiamine Mononitrate (Vitamin B-1) 100 MG) PO SCH (09:00)
[2019-01-03] MEDS: MULTIVITAMINS/MINERALS TAB PO SCH (09:00)
[2019-01-03] MEDS: ZINC SULFATE 220 MG CAP PO SCH (09:00)
[2019-01-03] MEDS: FUROSEMIDE INJ 10 MG/ML 4 ML VIAL IV SCH ×2 (09:00→20:44)
[2019-01-03] MEDS: FAMOTIDINE 20 MG/2 ML VIAL IV SCH ×2 (09:00→17:01)
[2019-01-03] MEDS ORDERED: LEVOTHYROXINE SODIUM 50 MCG TAB PO SCH (09:00)
[2019-01-03 10:02] LABS: ABG HCO3 24 mmol/L (23-28); ABG PCO2 33 mmHg (41-51); ABG PH 7.46 (7.31-7.41); ABG PO2 201 mmHg (80-105)
[2019-01-03] MEDS ORDERED: SUCCINYLCHOLINE 200 MG/10 ML SYR IV ONE (10:03)
[2019-01-03] MEDS ORDERED: ETOMIDATE 40 MG/ 20ML VIAL IV ONE (10:03)
[2019-01-03 11:46] LABS: CREATINE KINASE MB 5.2 ng/mL (0-5.0)
--- NOTE | 2019-01-03 12:21 | Consultation ---
DATE OF CONSULTATION: 01/03/2019 REASON FOR CONSULTATION: Sepsis. HISTORY OF PRESENT ILLNESS: This patient is well known to me from before. She is a 53-year-old white female, who has lengthy hospitalizations. The patient who had intraabdominal wall hematoma, which got infected. The patient had liver cirrhosis, thrombocytopenia, chronic kidney disease, decubitus ulcer. The patient was in [place] for a prolonged time and then she was discharged to [facility]. The patient has multiple admissions. She was recently in [facility]. She has history of thrombocytopenia, chronic kidney disease, renal insufficiency. She had hematoma which needed to be evacuated with surgery and she had DOMINICK drain placed. She was on prolonged course of antibiotic. As the patient finally improved, she was discharged to long-term and she is presenting now with shortness of breath, not doing well. The patient is intubated currently. There is no family at the bedside. PAST MEDICAL HISTORY: As above. PAST SURGICAL HISTORY: As above. SOCIAL HISTORY: There is no smoking, drug abuse, or alcohol abuse. From long-term. FAMILY HISTORY: Could not be obtained. REVIEW OF SYSTEMS: Could not be obtained. The patient has history of alcoholism. ALLERGIES: CEPHALEXIN, BUT SHE DID WELL WITH THE OTHER CEPHALOSPORIN. LABORATORY DATA: White count 15.99, hemoglobin 9.7. Her sodium 136, potassium 5.2, creatinine 1.80. AST 48, ALT 34. Her albumin was 1.4. The patient had a CT of the abdomen and pelvis, which showed liver cirrhosis, bilateral lower lobe consolidation, cholelithiasis, mild colonic wall thickening, staghorn left renal calculi, atrophic left kidney, and mild right hydronephrosis. MEDICATIONS: The patient is currently on propofol, , Pepcid, vitamin C, thiamine, rifaximin, and Zosyn. PHYSICAL EXAMINATION: GENERAL: She is currently sedated on the ventilator. HEENT: She does not appear icteric. NECK: Supple. CHEST: Few crackles bilateral. COR: S1, S2. No S3, S4, or murmur. ABDOMEN: Soft. EXTREMITIES: No edema. IMPRESSION: 1. Healthcare-associated pneumonia. She is currently on Zosyn. I will suggest 2.25 IV q.8 h. Obtain sputum for culture and sensitivity. Blood cultures obtained. 2. Chronic kidney disease. 3. Liver cirrhosis. 4. Anemia. 5. Thrombocytopenia secondary to liver disease. We will follow. MD TULIO Jesus/MODL /[id number]
--- NOTE | 2019-01-03 12:33 | NUR ---
WOUND CARE CONSULTATION: THIS IS A 53 YEAR OLD FEMALE PATIENT ADMITTED TO [facility] FOR CIRRHOSIS OF THE LIVER WITH ASCITES AND DECUBITUS ULCERS. PATIENT HAS A HISTORY OF CIRRHOSIS, THROMBOCYTOPENIA, CHRONIC RENAL INSUFFICIENCY, AND DECUBITUS ULCERS. PATIENT IS A RESIDENT OF [facility] IN [place], WHERE SHE HAS BEEN RECEIVING WOUND CARE. HEAD TO TOE SKIN ASSESSMENT PERFORMED. PATIENT HAS DENUDED AREAS NOTED TO HALIE AREA CREASES. PATIENT ALSO HAS MULTIPLE BRUISES NOTED TO HER BILATERAL FOREARMS FROM LAB AND IV STICKS. PATIENT HAS MULTIPLE STABLE SMALL ESCHARS NOTED TO BILATERAL LOWER LEGS. SHE HAS A RIGHT LOWER LEG SKIN ABRASION MEASURING 0.5X2X0.1CM, 100% PINK GRANULATION NOTED TO WOUND BED. PATIENT HAS A LEFT DORSAL FOOT ABRASION MEASURING 0.7X0.5X0.1CM, 100% PINK GRANULATION NOTED TO WOUND BED. PATIENT HAS A LEFT HEEL STAGE 2 PRESSURE ULCER MEASURING 1.5X1X0.2, 80% SLOUGH COVERING THE WOUND BED. PATIENT HAS A RIGHT HEEL UNSTAGEABLE PRESSURE ULCER MEASURING 0.7X0.5X0.3CM, 100% SLOUGH COVERING WOUND BED WITH CALLUS PERIWOUND. PATIENT HAS A STAGE 3 PRESSURE ULCER TO HER SACRUM MEASURING 4X7.2X2.4CM, WITH 30% SLOUGH AND FIBRIN NOTED TO WOUND BED AND 70% RED GRANULATION NOTED TO WOUND BED. PATIENT HAS WEAK PALPABLE PULSES NOTED TO RIGHT AND LEFT DP; RIGHT AND LEFT PT PULSES UNABLE TO PALPATE. PATIENT IS CURRENTLY INTUBATED AND RECEIVING PEG TUBE FEEDINGS. NO FAMILY PRESENT AT BEDSIDE DURING ASSESSMENT. LABS: WBC15.99 WOUND CULTURE - PENDING URINE AND BLOOD CULTURE - PENDING MEDICATIONS: ZOSYN RECOMMENDATIONS: -CONTINUE ALTERNATING PRESSURE RELIEF MATTRESS. -APPLY BILATERAL HEEL PROTECTORS WITH PILLOW SUSPENSION. -STRICT TURN PATIENT EVERY 2 HOURS AND PRN. -NURSING TO CLEAN HALIE AREA WITH SOAP AND WATER, PAT DRY, APPLY NYSTATIN CREAM TO DENUDED AREAS TO HALIE AREA CREASES BID AND PRN. -NURSING TO CLEAN BILATERAL LOWER LEG ESCHARS WITH NORMAL SALINE, PAT DRY, APPLY VENELEX AND LEAVE OPEN TO AIR; APPLY DAILY. -NURSING TO CLEAN RIGHT LOWER LEG AND LEFT DORSAL FOOT ABRASIONS WITH NORMAL SALINE, PAT DRY, APPLY VENELEX AND FOAM DRESSING; CHANGE DAILY AND PRN. -NURSING TO CLEAN LEFT HEEL STAGE 2 PRESSURE ULCER AND RIGHT HEEL UNSTAGEABLE PRESSURE ULCER WITH NORMAL SALINE, PAT DRY, APPLY SANTYL, NORMAL SALINE MOISTENED GAUZE, THEN COVER WITH FOAM DRESSING; CHANGE DAILY AND PRN. -NURSING TO CLEAN STAGE 4 SACRAL ULCER WITH NORMAL SALINE, PAT DRY, APPLY SANTYL TO WOUND BED, THEN NPWT WOUND VAC WITH BLACK FOAM, CONTINUOUS SUCTION AT 140mmHG, CHANGE WOUND VAC EVERY WEDNESDAY, WED, WED AND PRN. THANK YOU FOR THIS WOUND CARE CONSULT. Addendum: 01/03/19 at 1307 by Wanda Macdonald RN Amended: Links added.
--- NOTE | 2019-01-03 15:06 | NUR ---
Nutrition Intervention Note RD Recommendation(s) for Physician: -Rec to initiate continuous TF with Vital AF @10mL/hr, advance as tolerated, to goal rate of 45mL/hr (1296kcal, 81g protein, 876ml H2O) -50mL q 4hr of free water flushes; additional per MD discretion -Check labs, weight, gastric tolerance daily Plan of Care: RD following, monitoring for tolerance and adequacy, TF rec Nutrition reason for involvement: New tube feeding RD Assessment 01/03 - 53 year old female, who was admitted for cirrhosis of the liver with ascites and decubitus ulcers. Patient is a resident of [facility] in [place], where she has been receiving wound care. Pt is currently intubated, ventilated and sedated. Ordered to start tube feeding with Glucerna 1.2 today. No family present on bedside during assessment. Paged Dr. Dill to get new TF order. Awaiting for call back. Principal Problems/Diagnoses: 1. Acute respiratory failure secondary to volume overload. 2. Severe sepsis from unclear source, present on admission. 3. Cirrhosis. 4. Thrombocytopenia. 5. Chronic renal failure stage 4. 6. Moderate protein-calorie malnutrition. PMH: 1. Cirrhosis. 2. Thrombocytopenia. 3. Chronic renal insufficiency. 4. Decubitus ulcer. GI: abdomen non-tender, round, ascitic Skin: Stage 2 pressure ulcer and right heel unstageable pressure ulcer Stage 4 sacral ulcer Labs: (01/03) K 5.2 H, Creatinine 1.8 H, Glucose 123 H, AST 48 H Meds: (01/03) precedex Ht: 62in Wt: 145lbs (weight obtained at last admission on 12/07/2018) BMI: 26.5kg/m2 IBW: 110lbs Malnutrition Evaluation (01/03/2019) Unable to evaluate at this time. Nutrition Prescription (Diet Order): Glucerna 1.2 @20mL/hr Estimated Nutritional Needs: Calories: 1188 1320kcal(18-20kcal/kg/d) Weight used: CBW Protein: 66 79g (1-1.2g/kg/d) Weight used: CBW Diet Adequacy: Not meeting calorie needs, Not meeting protein needs Diet Education Needs Assessment: Diet education indicated, but patient not appropriate for education at this time. Nutrition Care Level: mod Nutrition Diagnosis: Inadequate oral intake related to current medical status (ventilated, intubated) as evidenced by pt requiring EN as main source of nutrition. Goal: Patient will meet 75-100% of estimated needs by follow up Progress: N/A Interventions: Composition, Rate, Route, IVF, Prescription medications, Multivitamin/mineral supplement therapy Monitoring/Evaluation: Total energy intake, Total protein intake, Formula/Solution, IVF, Prescription medication, Weight change Signed: Maxine Hernández MS, RD, LD
--- NOTE | 2019-01-03 15:42 | Consultation ---
DATE OF CONSULTATION: 01/03/2019 Cardiology Consultation The patient admitted with respiratory insufficiency and shortness of breath. DIAGNOSES: 1. Pneumonia. 2. Respiratory failure, on ventilator. 3. History of cirrhosis. 4. Chronic kidney disease and renal stones and mild hydronephrosis. 5. Liver cirrhosis. 6. Severe anemia, about 6.5 g%. 7. Thrombocytopenia at 90,000 cells per cubic millimeter. There is no evidence of any significant heart issues in the past. Echocardiogram that was done a month ago was supposed to be about 60% to 65% ejection fraction, I have not reviewed the echocardiogram. Chest x-ray this time shows possible effusion on both sides and pneumonia, effusion may be mild at this time. Heart is enlarged. The patient is from skilled nursing. She is sedated and also semiconscious. The patient has multiple ulcers in the foot and decubitus ulcers. On clinical examination, there is no significant murmur and the patient's breath sounds heard on both sides. Abdomen is positive. The patient's abdomen is protuberant, maybe she has mild ascites. She has liver cirrhosis also as mentioned above. Neurological is very hard to evaluate. I saw the information obtained from the chart and from the history and physical and from the consultations and from the nurse's notes. At this time, I will try to get some more information from [facility] where she supposedly stayed there for some time and discharged to [place]. At this time, from my point of view, I will re-evaluate the patient when the echocardiogram is done. Meantime, continue all present medications. The patient's blood pressure is 100/70, heart rate 66 per minute. EKG shows sinus tachycardia without any evidence of any acute myocardial infarction or acute ST-T changes. Laboratory evaluation shows at this time the patient's troponin within normal limits at 0.024 and BNP is 1412. This may be because of renal failure and liver failure. I will re-evaluate the patient once some other investigation including echocardiogram is available. Meantime, the patient is critical, she is on respirator with respiratory insufficiency. Medications, please see the admission reconciliation section of on medication sheet. At this time, she is on multiple medications including IV antibiotics, IV fluids, Lasix, and propofol. Thank you again for this consultation. MD JOSHUA Arnold/MEAGANL /[id number]
--- NOTE | 2019-01-03 15:57 | NUR ---
SPUTUM COLLECTED AND SENT TO LAB
[2019-01-03] MEDS: NYSTATIN 100,000 UNITS/GM CRM 30GM TUBE TOP SCH (17:00)
[2019-01-03] MEDS: PIPERACILLIN/TAZO 2.25 GM 50 ML IV SCH ×2 (17:01→22:37)
[2019-01-03 19:37] LABS: CREATINE KINASE MB 4.1 ng/mL (0-5.0)
[2019-01-03] MEDS ORDERED: DEXMEDETOMIDINE 200MCG/NS 50ML 50 ML IV ONE (21:17)
[2019-01-03] MEDS: DEXMEDETOMIDINE HCL 200 MCG in SODIUM CHLORIDE 0.9% 50ML 48 ML IV PRN (21:18)
[2019-01-04] VITALS (24 sets, daily range): BP systolic 78–125; BP diastolic 36–96
[2019-01-04] MEDS ORDERED: ALBUMIN 25% 12.5GM 50ML 200 ML IV ONE (00:39)
[2019-01-04] MEDS ORDERED: ALBUMIN 25% 12.5GM 0.25 GM/ML BTL IV ONE (00:45)
[2019-01-04] MEDS: PIPERACILLIN/TAZO 2.25 GM 50 ML IV SCH ×3 (05:11→22:10)
[2019-01-04] MEDS: LEVOTHYROXINE SODIUM 50 MCG TAB PO SCH (05:11)
[2019-01-04] MEDS ORDERED: DEXMEDETOMIDINE 200MCG/NS 50ML 50 ML IV ONE ×2 (05:26→20:14)
[2019-01-04 05:36] LABS: BASOPHILS % 0.3 % (0.0-1.0); EOSINOPHILS % 0.3 % (0.0-6.0); LYMPHOCYTES # (AUTO) 0.8 (1.0-3.2); LYMPHOCYTES % 28.2 % (18.0-39.1); MEAN CORPUSCULAR HEMOGLOBIN 27.9 pg (28-32); MEAN CORPUSCULAR HGB CONC 30.3 g/dL (31-35); MONOCYTES # (AUTO) 0.2 (0.2-0.8); MONOCYTES % 8.1 % (4.4-11.3); NEUTROPHILS # (AUTO) 1.9 (2.1-6.9); NEUTROPHILS % 62.4 % (38.7-80.0); RED BLOOD COUNT 2.26 x10e6/uL (3.6-5.1)
[2019-01-04 05:56] LABS: ALBUMIN 1.9 g/dL (3.5-5.0); ALBUMIN/GLOBULIN RATIO 0.5 (0.8-2.0); ANION GAP 12.4 mmol/L (8-16); CALCIUM 8.6 mg/dL (8.4-10.2); CREATININE, SERUM 1.73 mg/dL (0.57-1.11); POTASSIUM 4.4 mmol/L (3.5-5.1)
[2019-01-04 06:42] LABS: HEMATOCRIT 20.8 % (34.2-44.1); HEMOGLOBIN 6.3 g/dL (12.0-16.0); PLATELET COUNT 31 x10e3/uL (140-360)
--- NOTE | 2019-01-04 06:45 | NUR ---
H/H 6.3/20.8 [address]T 31[address]ED TO DR. AYALA. ON HIS WAY IN.
--- NOTE | 2019-01-04 06:46 | Diagnostic Imaging Report ---
EXAMINATION: CHEST SINGLE (PORTABLE) INDICATION: ^Resp Failure ^[id number] ^0540 COMPARISON: 01/03/2019 FINDINGS: AP view TUBES and LINES: Stable endotracheal tube. Nasogastric tube is visualized, extending below the inferior margin of the film. LUNGS and pleura: Lungs are well inflated. Unchanged bilateral airspace opacities and moderate to large left pleural effusion. No visible pneumothorax. HEART AND MEDIASTINUM: The cardiac silhouette is obscured. BONES AND SOFT TISSUES: No acute osseous lesion. Soft tissues are unremarkable. UPPER ABDOMEN: No free air under the diaphragm. IMPRESSION: Nasogastric tube placement. Otherwise, no significant interval change from prior exam. Signed by: Dr. Rafa Quintero MD on 01/04/2019 6:43 AM
[2019-01-04] MEDS ORDERED: LIDOCAINE HCL 2% LOCAL 20 ML VIAL ONE (06:58)
[2019-01-04] MEDS: NOREPINEPHRINE INJ 4MG/4ML 8 MG in DEXTROSE 5% 250ML 250 ML IV SCH ×2 (07:00→18:12)
[2019-01-04] MEDS ORDERED: MIDAZOLAM HCL 2 MG/2 ML VIAL ONE ×2 (07:00→07:07)
--- NOTE | 2019-01-04 07:15 | NUR ---
Dr Dill on unit. Has placed RIJ central line. No complications noted. Notified of labs. Type and cross ordered. Suspected abd wall bleeding, Dr Dill is ordering CT abdomen. Levophed had been started on peripheral line, 18 gauge to RAC at [address] Dill telephone order. Will monitor.
[2019-01-04 07:20] LABS: PLATELET ESTIMATE MARKEDLY DECREASED; PLATELET MORPHOLOGY COMMENT NORMAL; RBC MORPHOLOGY COMMENT ABNORMAL
[2019-01-04 07:21] LABS: ANISOCYTOSIS SLIGHT; HYPOCHROMASIA SLIGHT
--- NOTE | 2019-01-04 07:30 | NUR ---
Versed 3 mg were given in [address] Dill attempted to start the central line.
[2019-01-04] MEDS ORDERED: MIDAZOLAM HCL 2 MG/2 ML VIAL IV STA (07:35)
--- NOTE | 2019-01-04 07:55 | Operative Report ---
DATE OF PROCEDURE: SURGEON: Dalton Dill MD PROCEDURE: Central line placement under ultrasound guidance. PREOPERATIVE DIAGNOSIS: Cirrhosis. POSTOPERATIVE DIAGNOSIS: Cirrhosis. SEDATION: Versed 1 mg IV and lidocaine 1% for local anesthesia. CONSENT: Consent was deemed emergent due to hypotension, cirrhosis, sepsis, and ongoing blood loss in the intensive care unit. DESCRIPTION OF THE PROCEDURE: The patient was placed in a supine position. The right neck was prepped sterilely with chlorhexidine. A full length sterile drape was used. Sterile gown, sterile gloves, and mask were applied. The area between the heads of the sternocleidomastoid was anesthetized with 1% lidocaine. The subcutaneous tissue was anesthetized with 1% lidocaine. A small parts ultrasound probe was used to locate the right internal jugular vein. It appeared patent. There was no evidence of intraluminal thrombosis. A 16-gauge needle was then placed into the vein under direct visualization. The vein was cannulated on the first attempt and a wire was passed through the needle. The needle was removed and a dilator was used to dilate the skin. A triple-lumen catheter was then placed over the wire by the Seldinger technique. All the ports flushed. COMPLICATIONS: None. ESTIMATED BLOOD LOSS: None. Dalton Dill MD [facility]/MODL /[id number]
[2019-01-04] MEDS: RIFAXIMIN 550 MG TABLET PO SCH ×2 (08:00→20:00)
--- NOTE | 2019-01-04 08:07 | Diagnostic Imaging Report ---
EXAM: CHEST XRAY LINE PLACEMENT, AP Portable DATE: 01/04/2019 Time stamp on exam: 7:30 AM INDICATION: Line placement COMPARISON: 01/04/2019 chest x-ray performed at 5:30 AM Exam is significantly rotated. FINDINGS: LINES/TUBES: Endotracheal tube and nasogastric tube in unchanged positions. Right IJ central line has been placed. Tip of this overlies the SVC. LUNGS: Moderate pulmonary edema. PLEURA: Bilateral pleural effusions. HEART AND MEDIASTINUM: Enlarged cardiac silhouette BONES AND SOFT TISSUES: Mid shaft old fracture of the right clavicle. IMPRESSION: 1. Status post right IJ central line placement. 2. Cardiomegaly with pulmonary edema and bilateral effusions. Signed by: Dr. Ganesh Vasquez DO on 01/04/2019 8:03 AM
[2019-01-04 08:47] LABS: BASOPHILS % 0.4 % (0.0-1.0); EOSINOPHILS # (AUTO) 0.1 (0.0-0.4); EOSINOPHILS % 1.3 % (0.0-6.0); LYMPHOCYTES % 21.3 % (18.0-39.1); MEAN CORPUSCULAR HEMOGLOBIN 28.5 pg (28-32); MEAN CORPUSCULAR HGB CONC 30.8 g/dL (31-35); MEAN CORPUSCULAR VOLUME 92.3 fL (81-99); MONOCYTES # (AUTO) 0.4 (0.2-0.8); MONOCYTES % 7.7 % (4.4-11.3); NEUTROPHILS # (AUTO) 3.3 (2.1-6.9); NEUTROPHILS % 68.7 % (38.7-80.0); RED BLOOD COUNT 2.46 x10e6/uL (3.6-5.1)
[2019-01-04 08:49] LABS: HEMATOCRIT 22.7 % (34.2-44.1)
[2019-01-04 08:50] LABS: PLATELET COUNT 41 x10e3/uL (140-360)
[2019-01-04] MEDS ORDERED: AMIODARONE HCL 100 ML IV ONE (09:00)
[2019-01-04] MEDS: FUROSEMIDE INJ 10 MG/ML 4 ML VIAL IV SCH ×2 (09:00→22:10)
[2019-01-04] MEDS: FAMOTIDINE 20 MG/2 ML VIAL IV SCH ×2 (09:00→17:00)
[2019-01-04] MEDS: MULTIVITAMINS/MINERALS TAB PO SCH (09:00)
[2019-01-04] MEDS ORDERED: AMIODARONE 900MG 500 ML IV ONE (09:00)
[2019-01-04] MEDS: NYSTATIN 100,000 UNITS/GM CRM 30GM TUBE TOP SCH ×2 (09:00→17:00)
[2019-01-04] MEDS: ZINC SULFATE 220 MG CAP PO SCH (09:00)
[2019-01-04] MEDS: ASCORBIC ACID 500 MG TAB PO SCH (09:00)
[2019-01-04] MEDS ORDERED: MAGNESIUM SULFATE 2GM/50ML 50 ML IV ONE ×2 (09:00→16:49)
[2019-01-04] MEDS ORDERED: BALSAM PERU/CASTOR OIL 5 GM OINT...G. TP SCH (09:00)
[2019-01-04] MEDS: THIAMINE HCL 100 MG TAB PO SCH (09:00)
--- NOTE | 2019-01-04 09:07 | NUR ---
WOUND VAC TO SACRAL STAGE 4 PRESSURE ULCER CHANGED PER ORDERS. BLACK SPONGE USED; 140mmhg CONT SUCTION; VAC IS INTACT; ICU NURSE SABINE WESTON AT BEDSIDE. PATIENT TOLERATED PROCEDURE WELL. Addendum: 01/04/19 at 0914 by Wanda Macdonald RN Amended: Links added.
[2019-01-04] MEDS ORDERED: AMIODARONE HCL 900 MG in DEXTROSE 5% 500ML 500 ML IV STA (09:13)
[2019-01-04] MEDS ORDERED: AMIODARONE HCL 150 MG/100 ML BAG IV ONE (09:15)
[2019-01-04] MEDS ORDERED: SODIUM CHLORIDE 0.9% 250ML 250 ML IV ONE (10:00)
--- NOTE | 2019-01-04 12:24 | Progress Note ---
DATE: 01/04/2019 Cardiology Progress Note The patient seen in the ICU bed 195. This morning, the patient went into wide QRS tachycardia, but this time well controlled with IV amiodarone. The patient intubated already. The patient is known patient of congestive heart failure and pleural effusion and significant other issues. Please see my consult note. At this time, however, the blood pressure is stable at 100/70. The patient is arousable. The patient will continue present medication, continue IV amiodarone and we are checking on the blood tests and electrolytes and other profile. At this time, the patient appears to be stabilized on IV amiodarone. We will continue to follow the patient. MD JOSHUA Arnold/MEAGANL /[id number]
--- NOTE | 2019-01-04 12:51 | NUR ---
PT DISCUSSED IN BARRIER ROUNDS, HAS MULTIPLE WOUNDS, TUBE FEEDS ARE ON HOLD GOING TO CT FOR PELVIS, HAS HX OF ABD WALL BLEED, HAS SUPER PUBIC CATH, RAPID CALLED, [facility]3 ON DRIP. ON LEVAPHED, PRESIDEX AND AMENERONE.
--- NOTE | 2019-01-04 14:55 | Diagnostic Imaging Report ---
EXAM: CT Abdomen and Pelvis WITHOUT contrast INDICATION: ^Abdominal wall hematoma ^[id number] ^1230 COMPARISON: CT abdomen/pelvis, 01/03/2019 TECHNIQUE: Abdomen and pelvis were scanned utilizing a multidetector helical scanner from the lung base to the pubic symphysis without administration of IV contrast. Absence of intravenous contrast decreases sensitivity for detection of focal lesions and vascular pathology. Coronal and sagittal reformations were obtained. Routine protocol was performed. Dose modulation, iterative reconstruction, and/or weight based adjustment of the mA/kV was utilized to reduce the radiation dose to as low as reasonably achievable. IV CONTRAST: None. ORAL CONTRAST: None RADIATION DOSE: Total DLP: 774.56 mGy*cm Estimated effective dose: (DLP x 0.015 x size factor) mSv COMPLICATIONS: None Limitations: Extensive streak artifact is produced by patient arms above and longside the abdomen. This reduces visualization of intra-abdominal organs and superficial soft tissues in the upper abdomen. FINDINGS: LINES and TUBES: Left double-J ureteral stent extending from the renal pelvis to the bladder. NG tube extending to the body of the stomach new since previous CT. LOWER THORAX: Moderate bilateral pleural effusions, larger on the left, with bilateral lower lobe atelectasis. Cardiomegaly with coronary artery calcification. HEPATOBILIARY: No focal hepatic lesions. No biliary ductal dilation. GALLBLADDER: There are multiple opaque gallstones. No wall thickening. SPLEEN: Splenic span 14.5 cm craniocaudal, splenomegaly. PANCREAS: No focal masses or ductal dilatation. ADRENALS: No adrenal nodules KIDNEYS/URETERS: Mild right hydronephrosis, unchanged from last exam. No opaque calculus is seen in the right ureter. Again noted is a staghorn calculus in the upper portion of the left collecting system measuring 3.3 cm in length and multiple additional calculi in the lower pole portion of the left collecting system measuring up to 1.6 cm diameter. No left hydronephrosis. Left double-J ureteral stent is noted. No contour deforming renal mass identified to the limits of noncontrast imaging. GI TRACT: No abnormal distention, wall thickening, or evidence of bowel obstruction. Large volume of retained stool in the rectosigmoid. The appendix is not conspicuously visualized. PELVIC ORGANS/BLADDER: Urinary bladder is decompressed. No discrete abnormal mass or fluid collection in the pelvis. LYMPH NODES: Again noted is prominence of iliac and retroperitoneal lymph nodes. VESSELS: The abdominal aorta is atherosclerotic. Again noted is an IVC filter. PERITONEUM / RETROPERITONEUM: No pneumoperitoneum. Moderate ascites again noted. BONES: No acute or suspicious bony lesion. Marked disc space narrowing at T8-9. SOFT TISSUES: Superficial surrounding soft tissue is somewhat difficult to assess as the patient is turned partly on their left side. Left breast appears asymmetrically prominent likely due to positioning. There is asymmetric prominence of the left lateral abdominal wall which may be related to contusion or hematoma is suggested on the request. No discrete drainable subcutaneous fluid collection is seen. IMPRESSION: 1. Stable left double-J ureteral stent. Large left renal calculi again noted. 2. Interval placement of NG tube extending to the body of the stomach. 3. There is asymmetric prominence of the left lateral abdominal and pelvic soft tissues which may be accentuated by patient positioning, but may represent abdominal wall contusion or hematoma as suggested on the requisition. No discrete drainable fluid collection is seen. 4. Again noted is splenomegaly and moderate ascites. 5. Again noted is cholelithiasis with no CT evidence for cholecystitis. 6. Bilateral pleural effusions, small on the right and moderate on the left, and bilateral lower lobe atelectasis or pneumonia, unchanged from last exam. Staff: [place] Signed by: Dr. Tim Ledezma M.D. on 01/04/2019 2:52 PM
--- NOTE | 2019-01-04 15:22 | Progress Note ---
DATE: SUBJECTIVE: The patient had hypotension early this morning. She required 50 g of albumin. She subsequently required low-dose Levophed. Hemoglobin showed a blood count of 6.3. She is pending red blood cell transfusion. The patient remains on a mechanical ventilator with an assist-control mode of ventilation. She went for CT scan of the abdomen and pelvis to rule out recurrent abdominal wall hematoma. PHYSICAL EXAMINATION: VITAL SIGNS: The patient is afebrile. The blood pressure is 105/55 on 2 mcg of Levophed. She is on assist-control mode of ventilation at a rate of 16 with a tidal volume of 420. NECK: She has a right IJ line in place. There is an oral endotracheal tube. CARDIAC: Reveals a regular rate and rhythm with normal S1, S2. There are no murmurs or rubs. LUNGS: Auscultation of the lungs reveals decreased breath sounds at the bases. There is no wheezing. ABDOMEN: Slightly distended. There is some ascites. EXTREMITIES: She does have some leg edema. She has a sacral wound. LABORATORY DATA: The BUN to creatinine ratio is 25 to 1.73 and the other electrolytes are within normal limits. The albumin is 1.9. Hemoglobin is 7 and white blood cell count is 4.8. The platelet count is 41. IMPRESSION: 1. Acute respiratory failure. 2. Moderate protein-calorie malnutrition. 3. Severe sepsis related to healthcare associated pneumonia, present on admission. 4. Acute kidney injury. 5. Anemia secondary to chronic blood loss. 6. Thrombocytopenia. PLAN: 1. The patient will receive packed red blood cells. 2. Results of the CT of abdomen and pelvis are pending. 3. Continue current antibiotics. Infectious Disease is following. 4. Repeat ABG and wean ventilator as tolerated. 5. Precedex for sedation. 6. Case discussed with nursing staff and Respiratory. 7. Greater than 35 minutes in direct critical care time separate from any procedures performed. Dalton Dill MD [facility]/MODL /[id number]
[2019-01-04] MEDS ORDERED: SODIUM CHLORIDE 0.9% 250ML 250 ML ONE ×2 (15:55→16:54)
[2019-01-04] MEDS: COLLAGENASE 5 GM TUBE TOP SCH (16:34)
[2019-01-04] MEDS: BALSAM PERU/CASTOR OIL 60 GM OINT...G. TP SCH (16:35)
[2019-01-04 16:51] LABS: ABG PCO2 35 mmHg (41-51); ABG PH 7.47 (7.31-7.41); ABG PO2 175 mmHg (80-105)
[2019-01-04 16:52] LABS: ABG HCO3 25 mmol/L (23-28)
[2019-01-04] MEDS: DEXMEDETOMIDINE HCL 200 MCG in SODIUM CHLORIDE 0.9% 50ML 48 ML IV PRN (19:13)
[2019-01-04] MEDS: DEXMEDETOMIDINE 200MCG/NS 50ML 50 ML IV PRN (20:17)
[2019-01-04 22:13] LABS: BASOPHILS % 0.5 % (0.0-1.0); EOSINOPHILS % 0.2 % (0.0-6.0); HEMOGLOBIN 7.2 g/dL (12.0-16.0); LYMPHOCYTES # (AUTO) 0.9 (1.0-3.2); LYMPHOCYTES % 20.8 % (18.0-39.1); MEAN CORPUSCULAR HEMOGLOBIN 28.5 pg (28-32); MEAN CORPUSCULAR HGB CONC 31.4 g/dL (31-35); MEAN CORPUSCULAR VOLUME 90.5 fL (81-99); MONOCYTES # (AUTO) 0.3 (0.2-0.8); MONOCYTES % 6.5 % (4.4-11.3); NEUTROPHILS # (AUTO) 3.1 (2.1-6.9); NEUTROPHILS % 71.5 % (38.7-80.0); RED BLOOD COUNT 2.53 x10e6/uL (3.6-5.1); RED CELL DISTRIBUTION WIDTH 17.3 % (11.7-14.4)
[2019-01-04 22:17] LABS: HEMATOCRIT 22.9 % (34.2-44.1)
[2019-01-04 22:18] LABS: PLATELET COUNT 37 x10e3/uL (140-360)
[2019-01-05] VITALS (28 sets, daily range): BP systolic 84–105; BP diastolic 49–76
[2019-01-05] MEDS: DEXMEDETOMIDINE 200MCG/NS 50ML 50 ML IV PRN ×6 (02:24→05:52)
[2019-01-05 04:58] LABS: BASOPHILS % 0.2 % (0.0-1.0); EOSINOPHILS % 0.4 % (0.0-6.0); HEMATOCRIT 23.2 % (34.2-44.1); HEMOGLOBIN 7.1 g/dL (12.0-16.0); LYMPHOCYTES # (AUTO) 1.2 (1.0-3.2); LYMPHOCYTES % 25.3 % (18.0-39.1); MEAN CORPUSCULAR HGB CONC 30.6 g/dL (31-35); MEAN CORPUSCULAR VOLUME 91.3 fL (81-99); MONOCYTES # (AUTO) 0.3 (0.2-0.8); MONOCYTES % 7.4 % (4.4-11.3); NEUTROPHILS # (AUTO) 3.1 (2.1-6.9); NEUTROPHILS % 66.5 % (38.7-80.0); RED BLOOD COUNT 2.54 x10e6/uL (3.6-5.1); RED CELL DISTRIBUTION WIDTH 17.4 % (11.7-14.4)
[2019-01-05 05:11] LABS: PLATELET COUNT 35 x10e3/uL (140-360)
[2019-01-05 05:17] LABS: ALBUMIN 1.6 g/dL (3.5-5.0); ALBUMIN/GLOBULIN RATIO 0.4 (0.8-2.0); ANION GAP 12.5 mmol/L (8-16); CALCIUM 8.9 mg/dL (8.4-10.2); CREATININE, SERUM 1.91 mg/dL (0.57-1.11); POTASSIUM 4.5 mmol/L (3.5-5.1)
[2019-01-05] MEDS: PIPERACILLIN/TAZO 2.25 GM 50 ML IV SCH (05:18)
[2019-01-05] MEDS: LEVOTHYROXINE SODIUM 50 MCG TAB PO SCH (05:20)
[2019-01-05] MEDS: NOREPINEPHRINE INJ 4MG/4ML 8 MG in DEXTROSE 5% 250ML 250 ML IV SCH (05:41)
--- NOTE | 2019-01-05 06:12 | Diagnostic Imaging Report ---
EXAMINATION: CHEST SINGLE (PORTABLE) INDICATION: ^Resp Failure COMPARISON: 01/04/2019 FINDINGS: AP view TUBES and LINES: Stable endotracheal and nasogastric tubes. Stable right internal jugular central line. LUNGS: Limited by rotation. Lungs are well inflated. Again seen left lung volume loss and mediastinal shift to the left. Left mid to lower lung field opacification. PLEURA: Bilateral pleural effusions, left greater than right. HEART AND MEDIASTINUM: The cardiomediastinal silhouette is enlarged and partially obscured on this AP view. BONES AND SOFT TISSUES: No acute osseous lesion. Soft tissues are unremarkable. UPPER ABDOMEN: No free air under the diaphragm. IMPRESSION: No change from prior exam. Combination of left pleural effusion and atelectasis with volume loss and mediastinal shift to the left. Layering right pleural effusion. Signed by: Dr. Rafa Quintero MD on 01/05/2019 6:08 AM
[2019-01-05] MEDS: PROPOFOL IV EMULSION 10MG/ML 100 ML IV SCH (07:15)
[2019-01-05] MEDS: RIFAXIMIN 550 MG TABLET PO SCH ×2 (08:00→19:17)
[2019-01-05] MEDS ORDERED: MIDAZOLAM HCL 2 MG/2 ML VIAL ONE (08:14)
[2019-01-05] MEDS ORDERED: AMIODARONE HCL 900 MG in DEXTROSE 5% 500ML 500 ML IV SCH (08:15)
[2019-01-05] MEDS: FAMOTIDINE 20 MG/2 ML VIAL IV SCH ×2 (09:00→17:04)
[2019-01-05] MEDS: NYSTATIN 100,000 UNITS/GM CRM 30GM TUBE TOP SCH ×2 (09:00→17:04)
[2019-01-05] MEDS: BALSAM PERU/CASTOR OIL 60 GM OINT...G. TP SCH (09:00)
[2019-01-05] MEDS: MULTIVITAMINS/MINERALS TAB PO SCH (09:00)
[2019-01-05] MEDS: ZINC SULFATE 220 MG CAP PO SCH (09:00)
[2019-01-05] MEDS: COLLAGENASE 5 GM TUBE TOP SCH (09:00)
[2019-01-05] MEDS: ASCORBIC ACID 500 MG TAB PO SCH (09:00)
[2019-01-05] MEDS: FUROSEMIDE INJ 10 MG/ML 4 ML VIAL IV SCH ×2 (09:00→20:22)
[2019-01-05] MEDS: THIAMINE HCL 100 MG TAB PO SCH (09:00)
[2019-01-05] MEDS ORDERED: CEFTAZIDIME 1 GM VIAL IV SCH (11:15)
[2019-01-05] MEDS: VANCOMYCIN 1GM/NS 250 ML 250 ML IV SCH (11:15)
[2019-01-05] MEDS ORDERED: CEFTAZIDIME SOD 1 GM/NS 50ML 50 ML IV SCH (11:58)
[2019-01-05] MEDS: CEFTAZIDIME SOD 1 GM/NS 50ML 50 ML IV SCH ×2 (12:00→20:22)
[2019-01-05] MEDS ORDERED: SODIUM CHLORIDE 0.9% 250ML 250 ML ONE (14:13)
[2019-01-05 14:50] LABS: BODY FLUID APPEARANCE TURBID; BODY FLUID COLOR STRAW; BODY FLUID TYPE PLEURAL
--- NOTE | 2019-01-05 15:35 | Diagnostic Imaging Report ---
Examination: Single AP view of the chest. COMPARISON: Earlier 01/05/2019 INDICATION: Status post left thoracentesis DISCUSSION: See impression IMPRESSION: 1. The patient is rotated to the left. Stable position of support lines and tubes. 2. No pneumothorax status post left thoracentesis. 3. Layering right pleural effusion. 4. No acute osseous abnormality. Posttraumatic deformity right clavicle. Signed by: Dr. Alvarado Casas M.D. on 01/05/2019 3:32 PM
--- NOTE | 2019-01-05 16:01 | Diagnostic Imaging Report ---
Date and Time: 01/05/2019 Procedure: Ultrasound-guided left thoracentesis folder gluer operator: Dr. Casas Pre-operative diagnosis: Left pleural effusion Post-operative diagnosis: Left pleural effusion Conscious Sedation: None Additional Medications: Lidocaine 1% for local anesthesia Estimated blood loss: Minimal Specimens: 700 cc straw-colored fluid Blood products administered: None Complications: None Implants: None Condition at completion: Guarded Disposition: Remain in ICU DISCUSSION: Informed consent was obtained and documented in the medical record. The patient was placed in the right lateral decubitus position. The left chest wall was prepped and draped in standard sterile fashion. A suitable percutaneous approach to the small left pleural effusion was identified and 1% lidocaine was infiltrated into the skin and subcutaneous tissues for local anesthesia. Then under continuous sonographic guidance a 5 [place] Yueh needle catheter was advanced into the left pleural space. The catheter was advanced off the needle and connected to vacuum bottle with evacuation of 700 cc straw-colored fluid. The catheter was removed and a sterile dressing was applied. The patient tolerated the procedure well without immediate complication. FINDINGS: Small left pleural effusion. IMPRESSION: Successful ultrasound-guided left thoracentesis with evacuation of 700 cc straw-colored fluid. Signed by: Dr. Alvarado Casas M.D. on 01/05/2019 3:58 PM
--- NOTE | 2019-01-05 16:44 | Progress Note ---
DATE: Cardiology Progress Note SUBJECTIVE: The patient is seen in ICU 195. The patient more comfortable now. The patient is in sinus rhythm. The patient got amiodarone and the patient is undergoing thoracentesis. She has multiple issues including ascites, pleural effusion, chronic congestive heart failure and renal failure. I will continue to follow the patient cardiac point of view. She has a sepsis, urinary tract infection, and cardiac-arango the patient is stabilized very much and will continue present medications. MD JOSHUA Arnold/MODL /[id number]
[2019-01-05 17:12] LABS: RBC,BODY FLUID 228 cells/uL; WBC,BODY FLUID 48 cells/uL
[2019-01-05 17:44] LABS: LYMPHOCYTES,BODY FLUID 77 %; MONO/MACROPHG,BODY FLUID 7 %; NEUTROPHILS,BODY FLUID 16 %
[2019-01-05 17:49] LABS: ABG HCO3 24 mmol/L (23-28); ABG PCO2 34 mmHg (41-51); ABG PH 7.46 (7.31-7.41); ABG PO2 147 mmHg (80-105)
--- NOTE | 2019-01-05 18:24 | Progress Note ---
DATE: Pulmonary Critical Care Progress Note SUBJECTIVE: The patient was placed on a spontaneous breathing trial, but became tachypneic this morning. She had to be switched back to assist-control. The patient subsequently had a thoracentesis. 700 mL removed from the left pleural space. She was placed on a spontaneous breathing trial again in the afternoon at 4:00 p.m. and is tolerating well. The patient received platelets prior to the thoracentesis. Microbiology cultures are showing Staph aureus in the wound and extended spectrum beta lactamase, resistant Klebsiella and Pseudomonas in the arm. PHYSICAL EXAMINATION: VITAL SIGNS: The blood pressure is 90/60 and the heart rate is 80. The patient is now on a pressure support of 8 with a CPAP of 5 and breathing about 24 times a minute. Tidal volumes 250 mL. HEENT: Shows no facial swelling or erythema. The patient has no oral endotracheal tube in place. There is a right IJ line. The site looks clean. There is no drainage. CARDIAC: Reveals regular rate and rhythm with normal S1 and S2. There are no murmurs or rubs. LUNGS: Auscultation of lungs reveals decreased breath sounds in the bases. There is no wheezing. ABDOMEN: Soft. There is no rebound or guarding. EXTREMITIES: Show no leg edema or calf tenderness. There is no cyanosis or clubbing. SKIN: Shows no rashes. NEUROLOGICAL: Shows no focal abnormalities. LABORATORY DATA: White blood cell count is 4.6 and hemoglobin 7.1. The platelet count is 35. BUN to creatinine ratio is normal. The electrolytes are within normal limits. IMPRESSION: 1. Acute respiratory failure. 2. Cirrhosis with ascites and pleural effusion. 3. Severe sepsis related to healthcare associated pneumonia, present on admission. 4. Anemia secondary to chronic blood loss. 5. Acute on chronic kidney injury. 6. Staghorn calculus and chronic pyelonephritis. 7. Decubitus wound in sacrum, stage 3. 8. Moderate protein-calorie malnutrition. PLAN: 1. The patient will be placed back on spontaneous breathing trial. We will work towards extubation. 2. Antibiotics have been adjusted by Infectious Disease. 3. Continue to monitor blood counts. 4. Continue to monitor renal function. 5. Case discussed with nursing staff, Respiratory and Infectious Disease. Greater than 35 minutes in direct critical care time. MD LIBAN Lake/MODL /[id number]
[2019-01-05] MEDS: HYDROCODONE/APAP 5MG-325MG TAB PO PRN (19:14)
[2019-01-05] MEDS ORDERED: KETOROLAC TROMETHAMINE 30 MG/ML VIAL IV NR ×2 (20:30→20:45)
--- NOTE | 2019-01-05 20:32 | NUR ---
PATIENT COMPLAINING OF PAIN IN THE SACRUM WHERE STAGE 4 WOUND IS, STATES [employer] IS NOT WORKING AND SHE TAKES SLEEPING PILL AT HOME FOR INSOMNIA. CALLED DR. AYALA AND WAS ORDERED TO GIVE 1XDOSE TORDOL 30MG IV, AMBIEN 5MG PO HS AND THEN IF SHE NEEDS SOMETHING LATER TO GIVE DILAUDID 0.5MG Q6HPRN.
[2019-01-05] MEDS: HYDROMORPHONE 2MG/ML 2 MG/ML ML IV PRN (23:19)
[2019-01-06] VITALS (23 sets, daily range): BP systolic 100–126; BP diastolic 57–87
[2019-01-06] MEDS: LEVOTHYROXINE SODIUM 50 MCG TAB PO SCH (05:14)
[2019-01-06 05:22] LABS: BASOPHILS % 0.5 % (0.0-1.0); EOSINOPHILS # (AUTO) 0.1 (0.0-0.4); EOSINOPHILS % 1.1 % (0.0-6.0); HEMATOCRIT 23.6 % (34.2-44.1); HEMOGLOBIN 7.2 g/dL (12.0-16.0); LYMPHOCYTES # (AUTO) 1.2 (1.0-3.2); LYMPHOCYTES % 22.2 % (18.0-39.1); MEAN CORPUSCULAR HEMOGLOBIN 28.5 pg (28-32); MEAN CORPUSCULAR HGB CONC 30.5 g/dL (31-35); MEAN CORPUSCULAR VOLUME 93.3 fL (81-99); MONOCYTES # (AUTO) 0.6 (0.2-0.8); MONOCYTES % 10.2 % (4.4-11.3); NEUTROPHILS # (AUTO) 3.6 (2.1-6.9); NEUTROPHILS % 65.5 % (38.7-80.0); PLATELET COUNT 60 x10e3/uL (140-360); RED BLOOD COUNT 2.53 x10e6/uL (3.6-5.1); RED CELL DISTRIBUTION WIDTH 17.5 % (11.7-14.4)
[2019-01-06] MEDS: NOREPINEPHRINE INJ 4MG/4ML 8 MG in DEXTROSE 5% 250ML 250 ML IV SCH (05:38)
[2019-01-06 05:42] LABS: ALBUMIN 1.7 g/dL (3.5-5.0); ALBUMIN/GLOBULIN RATIO 0.4 (0.8-2.0); ANION GAP 15.1 mmol/L (8-16); CALCIUM 8.3 mg/dL (8.4-10.2); CREATININE, SERUM 2.08 mg/dL (0.57-1.11); POTASSIUM 4.1 mmol/L (3.5-5.1)
--- NOTE | 2019-01-06 06:16 | Diagnostic Imaging Report ---
EXAMINATION: CHEST SINGLE (PORTABLE) INDICATION: ^Resp Failure ^[id number] ^0515 COMPARISON: 01/05/2019 FINDINGS: AP view TUBES and LINES: Interval extubation and removal of nasogastric tube. Stable right IJ central line. LUNGS and pleura: Lungs are well inflated. Complete opacification of the left lung. No significantly changed or slightly increased layering right pleural effusion. No visible pneumothorax. HEART AND MEDIASTINUM: The cardiomediastinal silhouette is unremarkable. BONES AND SOFT TISSUES: Old right clavicular fracture deformity. Soft tissues are unremarkable. UPPER ABDOMEN: No free air under the diaphragm. IMPRESSION: Interval extubation and removal of nasogastric tube. Complete opacification of the left lung, representing increased left pleural effusion/atelectasis. Underlying pneumonia cannot be excluded. Layering right pleural effusion, unchanged or slightly increased from prior x-ray. Signed by: Dr. Rafa Quintero MD on 01/06/2019 6:12 AM
[2019-01-06] MEDS: PROPOFOL IV EMULSION 10MG/ML 100 ML IV SCH (07:15)
--- NOTE | 2019-01-06 07:20 | NUR ---
Pt received resting in bed. Alert and oriented x2 but voice is hoarse due to previous intubation. Oriented to staff and surroundings. Oriented to staff and surroundings. Encouraged to press call espino if help needed. Pt verbalized understanding of teaching. Will monitor
[2019-01-06] MEDS: HYDROMORPHONE 2MG/ML 2 MG/ML ML IV PRN ×2 (08:00→22:00)
[2019-01-06] MEDS: CEFTAZIDIME SOD 1 GM/NS 50ML 50 ML IV SCH ×2 (08:03→20:03)
[2019-01-06] MEDS: FUROSEMIDE INJ 10 MG/ML 4 ML VIAL IV SCH ×2 (08:03→20:03)
[2019-01-06] MEDS: FAMOTIDINE 20 MG/2 ML VIAL IV SCH ×2 (08:03→17:53)
[2019-01-06] MEDS: RIFAXIMIN 550 MG TABLET PO SCH ×2 (09:00→20:00)
[2019-01-06] MEDS: BALSAM PERU/CASTOR OIL 60 GM OINT...G. TP SCH (09:00)
[2019-01-06] MEDS: ASCORBIC ACID 500 MG TAB PO SCH (09:00)
[2019-01-06] MEDS: NYSTATIN 100,000 UNITS/GM CRM 30GM TUBE TOP SCH ×2 (09:00→17:24)
[2019-01-06] MEDS: COLLAGENASE 5 GM TUBE TOP SCH (09:00)
[2019-01-06] MEDS: THIAMINE HCL 100 MG TAB PO SCH (09:00)
[2019-01-06] MEDS: ZINC SULFATE 220 MG CAP PO SCH (09:00)
[2019-01-06] MEDS: MULTIVITAMINS/MINERALS TAB PO SCH (09:00)
--- NOTE | 2019-01-06 09:10 | NUR ---
Pt's diet upgraded to Full liquid for breakfast. Pt requesting meds to be given after her breakfast. Meds given as ordered. Emotional support given. Will monitor
[2019-01-06] MEDS: VANCOMYCIN 1GM/NS 250 ML 250 ML IV SCH (11:55)
--- NOTE | 2019-01-06 13:28 | NUR ---
Pt resting comfortably in bed. Tolerated 75% of full liquid tray. Will monitor
--- NOTE | 2019-01-06 14:29 | Progress Note ---
DATE: Pulmonary Critical Care Progress Note SUBJECTIVE: The patient was extubated last night. She remains on amiodarone intravenously. She is not complaining of fever or chest pain. OBJECTIVE: VITAL SIGNS: The blood pressure is 117/71 and saturation is 97%. The pulse is 86. HEENT: No facial swelling or erythema. CARDIAC: Regular rate and rhythm with normal S1, S2. ABDOMEN: Soft and nontender. There is some ascites. BACK: There is a sacral wound. LABORATORY DATA: Hemoglobin is 7.2, the platelet count is 60, and white blood cell count is 5.5. The BUN to creatinine ratio is 26 to 2.09. Other electrolytes are within normal limits. RADIOGRAPHIC DATA: Chest x-ray shows some right pleural effusion. The IJ line is in good position. IMPRESSION: 1. Healthcare-associated pneumonia with severe sepsis, present on admission. 2. Decubitus wound in sacrum, stage III, present on admission. 3. Moderate protein-calorie malnutrition. 4. Cirrhosis with ascites and pleural effusion. 5. Acute kidney injury. 6. Six staghorn calculi with chronic pyelonephritis. PLAN: 1. Continue current antibiotics. 2. Physical therapy. 3. Wound care. 4. Monitor blood counts. 5. Monitor renal function and electrolytes. 6. LTAC evaluation. Dalton Dill MD [facility]/MODL /[id number]
--- NOTE | 2019-01-06 16:30 | NUR ---
Wound vac changed as ordered. Care provided, and linens changed. Emotional support given to pt. Fall precautions maintained. Will monitor
--- NOTE | 2019-01-06 17:55 | NUR ---
Pt tolerated all meals. Will advance diet to GI soft for AM. Will monitor
[2019-01-06] MEDS: ZOLPIDEM TARTRATE 5 MG TAB PO PRN ×2 (20:00→20:27)
[2019-01-07] VITALS (17 sets, daily range): BP systolic 93–138; BP diastolic 58–88
[2019-01-07 04:47] LABS: BASOPHILS % 0.6 % (0.0-1.0); EOSINOPHILS # (AUTO) 0.1 (0.0-0.4); EOSINOPHILS % 1.9 % (0.0-6.0); HEMATOCRIT 24.8 % (34.2-44.1); HEMOGLOBIN 7.6 g/dL (12.0-16.0); LYMPHOCYTES # (AUTO) 1.5 (1.0-3.2); LYMPHOCYTES % 28.1 % (18.0-39.1); MEAN CORPUSCULAR HEMOGLOBIN 28.3 pg (28-32); MEAN CORPUSCULAR HGB CONC 30.6 g/dL (31-35); MEAN CORPUSCULAR VOLUME 92.2 fL (81-99); MONOCYTES # (AUTO) 0.5 (0.2-0.8); MONOCYTES % 10.1 % (4.4-11.3); NEUTROPHILS # (AUTO) 3.1 (2.1-6.9); NEUTROPHILS % 58.7 % (38.7-80.0); PLATELET COUNT 63 x10e3/uL (140-360); RED BLOOD COUNT 2.69 x10e6/uL (3.6-5.1); RED CELL DISTRIBUTION WIDTH 17.3 % (11.7-14.4)
[2019-01-07] MEDS: LEVOTHYROXINE SODIUM 50 MCG TAB PO SCH (05:19)
[2019-01-07 05:21] LABS: ALBUMIN 1.5 g/dL (3.5-5.0); ALBUMIN/GLOBULIN RATIO 0.3 (0.8-2.0); ANION GAP 12.7 mmol/L (8-16); CALCIUM 8.4 mg/dL (8.4-10.2); CREATININE, SERUM 2.16 mg/dL (0.57-1.11); POTASSIUM 3.7 mmol/L (3.5-5.1)
--- NOTE | 2019-01-07 07:35 | Diagnostic Imaging Report ---
EXAMINATION: CHEST SINGLE (PORTABLE) INDICATION: ^Resp Failure ^[id number] ^0550 COMPARISON: 01/06/2019 FINDINGS: AP view TUBES and LINES: Unchanged right adjacent venous catheter with tip overlying the caval junction. LUNGS/pleura: Complete opacification of the left hemithorax due to a combination of pleural effusion and atelectasis remain unchanged. Pulmonary edema in the right lung. No consolidations in the right lung. Small right pleural effusion is unchanged. No pneumothorax. HEART AND MEDIASTINUM: The cardiomediastinal silhouette is obscured by the pleural effusion. BONES AND SOFT TISSUES: No acute osseous lesion. Soft tissues are unremarkable. UPPER ABDOMEN: No free air under the diaphragm. IMPRESSION: Persistent complete opacification of the left hemithorax due to a combination of effusion and atelectasis. Signed by: Dr. Georgia Florence M.D. on 01/07/2019 7:31 AM
[2019-01-07] MEDS: RIFAXIMIN 550 MG TABLET PO SCH (09:12)
[2019-01-07] MEDS: FUROSEMIDE INJ 10 MG/ML 4 ML VIAL IV SCH (09:13)
[2019-01-07] MEDS: COLLAGENASE 5 GM TUBE TOP SCH (09:15)
[2019-01-07] MEDS: FAMOTIDINE 20 MG/2 ML VIAL IV SCH (09:15)
[2019-01-07] MEDS: NYSTATIN 100,000 UNITS/GM CRM 30GM TUBE TOP SCH (09:15)
[2019-01-07] MEDS: ASCORBIC ACID 500 MG TAB PO SCH (09:15)
[2019-01-07] MEDS: ZINC SULFATE 220 MG CAP PO SCH (09:15)
[2019-01-07] MEDS: BALSAM PERU/CASTOR OIL 60 GM OINT...G. TP SCH (09:15)
[2019-01-07] MEDS: THIAMINE HCL 100 MG TAB PO SCH (09:15)
[2019-01-07] MEDS: MULTIVITAMINS/MINERALS TAB PO SCH (09:15)
[2019-01-07] MEDS: CEFTAZIDIME SOD 1 GM/NS 50ML 50 ML IV SCH (09:38)
[2019-01-07] MEDS: HYDROMORPHONE 2MG/ML 2 MG/ML ML IV PRN (09:50)
[2019-01-07] MEDS: VANCOMYCIN 1GM/NS 250 ML 250 ML IV SCH (11:15)
[2019-01-07] MEDS: HYDROCODONE/APAP 5MG-325MG TAB PO PRN (14:07)
--- NOTE | 2019-01-07 14:07 | NUR ---
Report called to Donny Araujo RN for ICU Bed 9 [facility].
--- NOTE | 2019-01-07 15:08 | Progress Note ---
DATE: Cardiology Progress Note SUBJECTIVE: The patient is seen in the room. The patient is extubated. The patient is awake and able to converse well and patient is from [facility]. At this time, patient has significant infection of bilateral foot and decubitus ulcers in the back. The patient also had paracentesis of the pleural cavity done. At this time, heart rate is about 80 pulmonary sinus rhythm, blood pressure 110/80. The patient showed a remarkable improvement. Dr. Dalton Dill is the patient's doctor and the patient is getting IV antibiotic. The patient has multiple problems that include: 1. Cirrhosis. 2. Chronic kidney disease stage IV and stage IV sacral ulcers. 3. Renal calculi and pyelonephritis. 4. Ascites and pleural effusion and abdominal wall hematoma with Lovenox probably. At this time, the patient is showing very positive improvement clinically. We will continue all the present medications. MD JOSHUA Arnold/KENAN /[id number]
--- NOTE | 2019-01-07 21:09 | Discharge Summary ---
DISCHARGE DIAGNOSES: 1. Healthcare-associated pneumonia with severe sepsis, present on admission. 2. Decubitus ulcer in sacrum, stage 3, present on admission. 3. Moderate protein-calorie malnutrition. 4. Cirrhosis with ascites and pleural effusion. 5. Acute kidney injury. 6. Staghorn calculus with chronic pyelonephritis. 7. Thrombocytopenia. 8. Acute respiratory failure secondary to pneumonia and volume overload. DISCHARGE MEDICATIONS: 1. Amiodarone drip intravenous. 2. Ceftazidime 1 g IV q.12. 3. Vancomycin 1 g IV q.24. 4. Vitamin C 500 mg p.o. b.i.d. 5. Pepcid 20 mg IV b.i.d. 6. Hydrocodone 5-325 p.o. q.6 p.r.n. 7. Dilaudid 0.5 mg IV q.6 p.r.n. 8. Synthroid 50 mcg p.o. daily. 9. Multivitamins daily. 10. Rifaximin 550 mg p.o. q.12. 11. Thiamine 100 mg p.o. daily. 12. Zinc sulfate 220 mg p.o. daily. CONSULTING PHYSICIANS: 1. Dr. Black of Infectious Disease. 2. Dr. Rodriguez of Cardiology. PROCEDURES: 1. Ultrasound-guided thoracentesis with 700 mL of fluid removed from the left pleural space. 2. CT scan of the abdomen and pelvis showed stable left double-J ureteral stents with a large left renal calculus. There is splenomegaly as well as moderate ascites. There is some cholelithiasis and bilateral pleural effusions. HISTORY OF PRESENT ILLNESS: The patient is a 53-year-old woman. She has a history of cirrhosis, thrombocytopenia, and chronic renal insufficiency. She also has a history of a decubitus wound. She was receiving wound care at [facility]. She came to the emergency department with worsening dyspnea and tachypnea. She also had an elevated white blood cell count. She required endotracheal intubation. HOSPITAL COURSE: The patient was admitted and continued on mechanical ventilation. She received diuretics as well as IV antibiotics. She was started on enteral feedings. She was seen in consultation by Infectious Disease as well as Cardiology. The patient initially failed her spontaneous breathing trials. She required an ultrasound-guided left thoracentesis. 700 mL of fluid was removed from the left pleural space. The patient subsequently tolerated the breathing trials well and was extubated. The patient's diet was gradually advanced. She was continued on antibiotics. Her diuretics were held because of a rising creatinine. She was started on physical therapy. She is awaiting transfer to [place]. DISPOSITION: The patient was transferred to [facility]. MD LIBAN Lake/KENAN /[id number]
[2019-01-08] MEDS ORDERED: AMIODARONE HCL 200 MG TAB PO SCH (09:00)
== END 2019-01-07 16:57 | disposition home or self-care (01) | DRG 871 ==
LOC: ER 02:04 → ERHOLD 05:42 → ICU 06:15
PROVIDERS: ADMIT Internal Medicine Critical Care Medicine; ATTEND Internal Medicine Critical Care Medicine
PROC: 5A1945Z Respiratory Ventilation, 24-96 Consecutive Hours (ICD-10-PCS; principal; 2019-01-03)
PROC: 0BH17EZ Insertion of Endotracheal Airway into Trachea, Via Natural or Artificial Opening (ICD-10-PCS; 2019-01-03)
PROC: 02HV33Z Insertion of Infusion Device into Superior Vena Cava, Percutaneous Approach (ICD-10-PCS; 2019-01-03)
PROC: B548ZZA Ultrasonography of Superior Vena Cava, Guidance (ICD-10-PCS; 2019-01-03)
PROC: 30233N1 Transfusion of Nonautologous Red Blood Cells into Peripheral Vein, Percutaneous Approach (ICD-10-PCS; 2019-01-04)
PROC: 30233R1 Transfusion of Nonautologous Platelets into Peripheral Vein, Percutaneous Approach (ICD-10-PCS; 2019-01-05)
PROC: 0W9B3ZZ Drainage of Left Pleural Cavity, Percutaneous Approach (ICD-10-PCS; 2019-01-05)
DX: A41.9 Sepsis, unspecified organism (principal); L89.154 Pressure ulcer of sacral region, stage 4; J18.9 Pneumonia, unspecified organism; J96.00 Acute respiratory failure, unspecified whether with hypoxia or hypercapnia; T83.518A Infection and inflammatory reaction due to other urinary catheter, initial encounter; N18.4 Chronic kidney disease, stage 4 (severe); E44.0 Moderate protein-calorie malnutrition; R18.8 Other ascites; N13.2 Hydronephrosis with renal and ureteral calculous obstruction; R65.20 Severe sepsis without septic shock; D69.6 Thrombocytopenia, unspecified; K74.60 Unspecified cirrhosis of liver; E03.9 Hypothyroidism, unspecified; Z87.442 Personal history of urinary calculi; G20 Parkinson's disease; L08.9 Local infection of the skin and subcutaneous tissue, unspecified; D50.0 Iron deficiency anemia secondary to blood loss (chronic); B96.89 Other specified bacterial agents as the cause of diseases classified elsewhere; B96.5 Pseudomonas (aeruginosa) (mallei) (pseudomallei) as the cause of diseases classified elsewhere; B95.2 Enterococcus as the cause of diseases classified elsewhere; B95.62 Methicillin resistant Staphylococcus aureus infection as the cause of diseases classified elsewhere
CPT/HCPCS: 31500; 32555; 36415; 36600; 71045; 74176; 80053; 80202; 81001; 82140; 82550; 82553; 82805; 83605; 83615; 83735; 83880; 84157; 84484; 85025; 85610; 85651; 85730; 86140; 86850; 86900; 86920; 87040; 87070; 87071; 87086; 87186; 87205; 88112; 88305; 89051; 93005; 93306; 94002; 94003; 94667; 94668; 96361; 97139; 99284; J0713; J1885; J1940; J2001; J2250; J2543; J3370; J3411; J3475; J7050; J7060; P9016; P9034

== ENCOUNTER 2019-02-05 20:55 | Emergency (ER) | payer MEDICARE, OTHER ==
[~2019-02-05] VITALS: Ht 157.5 cm; Wt 81.6 kg
[2019-02-05] MEDS ORDERED: CLINDAMYCIN HC300 MG PO (21:26)
== END 2019-02-05 22:33 | disposition home or self-care (01) ==
LOC: ER 20:55
DX: Z48.00 Encounter for change or removal of nonsurgical wound dressing (principal); L89.153 Pressure ulcer of sacral region, stage 3; L03.116 Cellulitis of left lower limb; L03.115 Cellulitis of right lower limb
CPT/HCPCS: 99283

== ENCOUNTER 2019-03-18 13:03 | Emergency (ER) | payer MEDICARE, OTHER ==
[~2019-03-18] VITALS: Ht 157.5 cm; Wt 81.6 kg
[~2019-03-18 13:03] MED LIST changes: +CLINDAMYCIN HC300 MG PO
[2019-03-18] MEDS ORDERED: CEFTRIAXONE SOD 1 GM VIAL IV ONE (13:30)
--- NOTE | 2019-03-18 14:00 | Diagnostic Imaging Report ---
A single frontal view of the chest. HISTORY: UTI COMPARISON: Chest radiograph January 07, 2019 DISCUSSION: Portable technique, limits sensitivity of the exam. Left anterior oblique rotation. Tubes/Lines: None Lungs and pleura: Marked interval reduction in the left pleural effusion versus atelectasis. Patchy interstitial and airspace opacities at the left mid to lower lung. A trace to small left pleural effusion is possible. Heart and mediastinum: The cardiac appear(s) enlarged. Bones and soft tissues: Chronic right clavicular fracture deformity. IMPRESSION: 1. Left mid to lower thorax interstitial and airspace opacities. Consider pneumonia, aspiration, atelectasis, and/or small effusion. Recommend short term follow up routine PA and lateral chest radiographs, in 6 to 8 weeks, to evaluate for resolution. 2. Cardiomegaly. Signed by: Dr. Adonis Ramsay D.O., M.M.M. on 03/18/2019 1:57 PM
[2019-03-18 14:25] LABS: BASOPHILS % 0.5 % (0.0-1.0); EOSINOPHILS # (AUTO) 0.4 (0.0-0.4); EOSINOPHILS % 6.4 % (0.0-6.0); HEMATOCRIT 26.3 % (34.2-44.1); LYMPHOCYTES % 18.8 % (18.0-39.1); MEAN CORPUSCULAR HGB CONC 30.4 g/dL (31-35); MONOCYTES # (AUTO) 0.4 (0.2-0.8); MONOCYTES % 6.4 % (4.4-11.3); NEUTROPHILS # (AUTO) 3.7 (2.1-6.9); NEUTROPHILS % 67.5 % (38.7-80.0); PLATELET COUNT 105 x10e3/uL (140-360); RED BLOOD COUNT 2.86 x10e6/uL (3.6-5.1); RED CELL DISTRIBUTION WIDTH 18.5 % (11.7-14.4)
[2019-03-18 14:26] LABS: BILIRUBIN,URINE NEGATIVE (NEGATIVE); CLARITY,URINE SL CLOUDY (CLEAR); COLOR,URINE YELLOW (YELLOW); KETONES,URINE NEGATIVE (NEGATIVE); LEUKOCYTE ESTERASE ,URINE LARGE (NEGATIVE); NITRITE,URINE POSITIVE (NEGATIVE); PROTEIN,URINE DIPSTICK 1+ (NEGATIVE); URINE UROBILINOGEN 0.2 mg/dL (0.2 - 1)
[2019-03-18 14:38] LABS: BACTERIA,URINE MANY /HPF; EPITHELIAL CELLS,URINE RARE /LPF; WBC,URINE (MAN) >50 /HPF (0-5)
[2019-03-18 14:39] LABS: AMORPHOUS SEDIMENT,URINE FEW (FEW)
[2019-03-18 14:40] LABS: ALBUMIN 2.2 g/dL (3.5-5.0); ALBUMIN/GLOBULIN RATIO 0.4 (0.8-2.0); ANION GAP 14.3 mmol/L (8-16); CALCIUM 9.3 mg/dL (8.4-10.2); CREATININE, SERUM 1.82 mg/dL (0.57-1.11); INR 1.01; POTASSIUM 4.3 mmol/L (3.5-5.1); PROTHROMBIN TIME 13.8 seconds (11.9-14.5)
[2019-03-18] MEDS ORDERED: KETOROLAC TROMETHAMINE 30 MG/ML VIAL IV ONE (15:00)
[2019-03-18 15:08] VITALS: BP 121/61
--- NOTE | 2019-03-18 15:24 | NUR ---
[facility] called for transport back to [facility]; eta 45 min
== END 2019-03-18 16:50 | disposition home or self-care (01) ==
LOC: ER 13:03
DX: N39.0 Urinary tract infection, site not specified (principal); N28.9 Disorder of kidney and ureter, unspecified; D59.9 Acquired hemolytic anemia, unspecified; G20 Parkinson's disease; R60.9 Edema, unspecified; K76.9 Liver disease, unspecified; E03.9 Hypothyroidism, unspecified
CPT/HCPCS: 36415; 71045; 80053; 81001; 82140; 83605; 85025; 85610; 87040; 99284; J1885

== ENCOUNTER 2019-05-25 20:41 | Emergency (ER) | payer MEDICARE, OTHER ==
[~2019-05-25] VITALS: Ht 157.5 cm; Wt 81.6 kg
--- OUTSIDE RECORDS SUMMARY | 2019-05-25 21:00 | XMS REPORT ---
[facility] Address Unknown Phone Unavailable Care Team Providers Care Rn Ed Name Role Phone LAUREN CALLOWAY Unavailable Unavailable KIM DILL Unavailable Unavailable Payers Payer Name Policy Type Policy Number Effective Date Expiration Date Problems This patient has no known problems. Allergies, Adverse Reactions, Alerts Allergy Name Allergy Type Status Severity Reaction(s) Onset Date Inactive Date Treating Clinician Comments cephalexin DA Active MO 2019-03-19 00:00:00 cephalexin DA Active MO 2018-09-21 00:00:00 cephalexin DA Active MO 2018-07-07 00:00:00 cephalexin DA Active U 2018-03-31 00:00:00 cephalexin DA Active U 2017-12-25 00:00:00 Medications This patient has no known medications. Results Test Description Test Time Test Comments Text Results Atomic Results Result Comments FE W/TOTAL IRON BINDING CAP. 2019-04-05 12:00:00 SERUM IRON (test code=IRON) 152 ug/dL 50-175 TOTAL IRON BINDING CAPACITY (test code=TIBC) 167 mcg/dL 250-450 IRON SATURATION (test code=FESAT) 91.02 % 13-45 VITAMIN [id number] 12:00:00* Test Item Value Reference Range Comments VITAMIN B12 (test code=VITB12) 1695 pg/mL 193-986 FOLIC [id number] 12:00:00* Test Item Value Reference Range Comments FOLIC ACID (test code=FOL) 12.0 ng/mL 3.10-17.50 [id number] 12:00:00* Test Item Value Reference Range Comments FERRITIN (test code=CARLEEN) 421 ng/mL 8-388 CBC W/AUTO [id number] 11:36:00* Test Item Value Reference Range Comments WHITE BLOOD CELL (test code=WBC) 4.1 K/mm3 4.5-12.5 RED BLOOD CELL (test code=RBC) 2.82 mill/mm3 3.7-5.2 HEMOGLOBIN (test code=HGB) 8.3 gram/dL 11.5-15.5 HEMATOCRIT (test code=HCT) 27.1 % 36.0-46.0 MEAN CELL VOLUME (test code=MCV) 96.1 fL 80-98 MEAN CELL HGB (test code=MCH) 29.4 picogram 27.0-33.0 MEAN CELL HGB CONCETRATION (test code=MCHC) 30.6 gram/dL 33.0-36.0 RED CELL DISTRIBUTION WIDTH (test code=RDW) 17.2 % 11.6-16.2 RED CELL DISTRIBUTION WIDTH SD (test code=RDW-SD) 56.7 fL 37.0-51.0 PLATELET COUNT (test code=PLT) 17 K/mm3 150-450 Results called to [id number] by V.LAB.ISRA 04/05/19 1044Critical results verified and read back by Nurse? Y MEAN PLATELET VOLUME (test code=MPV) TEST NOT PERFORMED fL 6.7-11.0 NEUTROPHIL % (test code=NT%) 88.8 % 39.0-69.0 IMMATURE GRANULOCYTE % (test code=IG%) 0.7 % 0.0-5.0 LYMPHOCYTE % (test code=LY%) 6.1 % 25.0-55.0 MONOCYTE % (test code=MO%) 4.4 % 0.0-10.0 EOSINOPHIL % (test code=EO%) 0.0 % 0.0-5.0 BASOPHIL % (test code=BA%) 0.0 % 0.0-1.0 NUCLEATED RBC % (test code=NRBC%) 0.0 % 0-0 NEUTROPHIL # (test code=NT#) 3.65 K/mm3 1.8-7.7 IMMATURE GRANULOCYTE # (test code=IG#) 0.03 x10 3/uL 0-0.03 LYMPHOCYTE # (test code=LY#) 0.25 K/mm3 1.0-5.0 MONOCYTE # (test code=MO#) 0.18 K/mm3 0-0.8 EOSINOPHIL # (test code=EO#) 0.00 K/mm3 0.0-0.5 BASOPHIL # (test code=BA#) 0.00 K/mm3 0.0-0.2 NUCLEATED RBC # (test code=NRBC#) 0.00 K/mm3 0.0-0.1 MANUAL DIFF REQUIRED (test code=MDIFF) NO, ONLY SCAN NEEDED DIFFERENTIAL [id number] 11:36:00* Test Item Value Reference Range Comments STAIN ACCEPTABILITY (test code=STN ACCEPTABLE) STAIN ACCEPTABLE POLYCHROMASIA (test code=POLC) 1+ HYPOCHROMIA (test code=HYPO) 1+ POIKILOCYTOSIS (test code=POIK) 1+ ANISOCYTOSIS (test code=ANISO) 1+ TEAR DROP CELLS (test code=TEAR) 1+ PLATELET ESTIMATE (test code=PLTEST) DECREASED PLATELET MORPHOLOGY (test code=PLTMORPH) NORMAL BASIC METABOLIC [id number] 11:25:00* Test Item Value Reference Range Comments SODIUM (test code=NA) 145 mmol/L 136-145 POTASSIUM (test code=K) 5.3 mmol/L 3.5-5.1 CHLORIDE (test code=CL) 105.0 mmol/L 98-107 CARBON DIOXIDE (test code=CO2) 34.0 mmol/L 21-32 ANION GAP (test code=GAP) 11.3 10-20 GLUCOSE (test code=GLU) 98 mg/dL 74-106 BLOOD UREA NITROGEN (test code=BUN) 62 mg/dL 7-18 GLOMERULAR FILTRATION RATE (test code=GFR) 29 mL/min >=60 Estimated GFR by using Modified MDRD formula.Chronic kidney disease is defined as either kidney damageor GFR <60 mL/min/1.73 m2 for >3 months. CREATININE (test code=CREAT) 1.80 mg/dL 0.55-1.02 Note change in reference range due to change in reagent. BUN/CREATININE RATIO (test code=BUN/CREA) 35.0 10-20 CALCIUM (test code=CA) 8.3 mg/dL 8.5-10.1 BASIC METABOLIC [id number] 11:21:00* Test Item Value Reference Range Comments SODIUM (test code=NA) 145 mmol/L 136-145 POTASSIUM (test code=K) 5.3 mmol/L 3.5-5.1 CHLORIDE (test code=CL) 105.0 mmol/L 98-107 CARBON DIOXIDE (test code=CO2) mmol/L 21-32 ANION GAP (test code=GAP) 10-20 GLUCOSE (test code=GLU) mg/dL 74-106 BLOOD UREA NITROGEN (test code=BUN) mg/dL 7-18 GLOMERULAR FILTRATION RATE (test code=GFR) mL/min >=60 CREATININE (test code=CREAT) mg/dL 0.55-1.02 BUN/CREATININE RATIO (test code=BUN/CREA) 10-20 CALCIUM (test code=CA) mg/dL 8.5-10.1 CBC W/AUTO [id number] 10:45:00* Test Item Value Reference Range Comments WHITE BLOOD CELL (test code=WBC) 4.1 K/mm3 4.5-12.5 RED BLOOD CELL (test code=RBC) 2.82 mill/mm3 3.7-5.2 HEMOGLOBIN (test code=HGB) 8.3 gram/dL 11.5-15.5 HEMATOCRIT (test code=HCT) 27.1 % 36.0-46.0 MEAN CELL VOLUME (test code=MCV) 96.1 fL 80-98 MEAN CELL HGB (test code=MCH) 29.4 picogram 27.0-33.0 MEAN CELL HGB CONCETRATION (test code=MCHC) 30.6 gram/dL 33.0-36.0 RED CELL DISTRIBUTION WIDTH (test code=RDW) 17.2 % 11.6-16.2 RED CELL DISTRIBUTION WIDTH SD (test code=RDW-SD) 56.7 fL 37.0-51.0 PLATELET COUNT (test code=PLT) 17 K/mm3 150-450 Results called to [id number] by V.LAB.ISRA 04/05/19 1044Critical results verified and read back by Nurse? Y MEAN PLATELET VOLUME (test code=MPV) TEST NOT PERFORMED fL 6.7-11.0 NEUTROPHIL % (test code=NT%) 88.8 % 39.0-69.0 IMMATURE GRANULOCYTE % (test code=IG%) 0.7 % 0.0-5.0 LYMPHOCYTE % (test code=LY%) 6.1 % 25.0-55.0 MONOCYTE % (test code=MO%) 4.4 % 0.0-10.0 EOSINOPHIL % (test code=EO%) 0.0 % 0.0-5.0 BASOPHIL % (test code=BA%) 0.0 % 0.0-1.0 NUCLEATED RBC % (test code=NRBC%) 0.0 % 0-0 NEUTROPHIL # (test code=NT#) 3.65 K/mm3 1.8-7.7 IMMATURE GRANULOCYTE # (test code=IG#) 0.03 x10 3/uL 0-0.03 LYMPHOCYTE # (test code=LY#) 0.25 K/mm3 1.0-5.0 MONOCYTE # (test code=MO#) 0.18 K/mm3 0-0.8 EOSINOPHIL # (test code=EO#) 0.00 K/mm3 0.0-0.5 BASOPHIL # (test code=BA#) 0.00 K/mm3 0.0-0.2 NUCLEATED RBC # (test code=NRBC#) 0.00 K/mm3 0.0-0.1 MANUAL DIFF REQUIRED (test code=MDIFF) NO, ONLY SCAN NEEDED DIFFERENTIAL [id number] 10:45:00* Test Item Value Reference Range Comments STAIN ACCEPTABILITY (test code=STN ACCEPTABLE) CABOT RINGS (test code=CAB) MORPHOLOGY COMMENT (test code=MOC) PLATELET ESTIMATE (test code=PLTEST) PLATELET MORPHOLOGY (test code=PLTMORPH) CBC W/AUTO [id number] 10:45:00* Test Item Value Reference Range Comments WHITE BLOOD CELL (test code=WBC) 4.1 K/mm3 4.5-12.5 RED BLOOD CELL (test code=RBC) 2.82 mill/mm3 3.7-5.2 HEMOGLOBIN (test code=HGB) 8.3 gram/dL 11.5-15.5 HEMATOCRIT (test code=HCT) 27.1 % 36.0-46.0 MEAN CELL VOLUME (test code=MCV) 96.1 fL 80-98 MEAN CELL HGB (test code=MCH) 29.4 picogram 27.0-33.0 MEAN CELL HGB CONCETRATION (test code=MCHC) 30.6 gram/dL 33.0-36.0 RED CELL DISTRIBUTION WIDTH (test code=RDW) 17.2 % 11.6-16.2 RED CELL DISTRIBUTION WIDTH SD (test code=RDW-SD) 56.7 fL 37.0-51.0 PLATELET COUNT (test code=PLT) 17 K/mm3 150-450 Results called to [id number] by MADELAINEJCelena 04/05/19 1044Critical results verified and read back by Nurse? Y MEAN PLATELET VOLUME (test code=MPV) TEST NOT PERFORMED fL 6.7-11.0 NEUTROPHIL % (test code=NT%) 88.8 % 39.0-69.0 IMMATURE GRANULOCYTE % (test code=IG%) 0.7 % 0.0-5.0 LYMPHOCYTE % (test code=LY%) 6.1 % 25.0-55.0 MONOCYTE % (test code=MO%) 4.4 % 0.0-10.0 EOSINOPHIL % (test code=EO%) 0.0 % 0.0-5.0 BASOPHIL % (test code=BA%) 0.0 % 0.0-1.0 NUCLEATED RBC % (test code=NRBC%) 0.0 % 0-0 NEUTROPHIL # (test code=NT#) 3.65 K/mm3 1.8-7.7 IMMATURE GRANULOCYTE # (test code=IG#) 0.03 x10 3/uL 0-0.03 LYMPHOCYTE # (test code=LY#) 0.25 K/mm3 1.0-5.0 MONOCYTE # (test code=MO#) 0.18 K/mm3 0-0.8 EOSINOPHIL # (test code=EO#) 0.00 K/mm3 0.0-0.5 BASOPHIL # (test code=BA#) 0.00 K/mm3 0.0-0.2 NUCLEATED RBC # (test code=NRBC#) 0.00 K/mm3 0.0-0.1 MANUAL DIFF REQUIRED (test code=MDIFF) NO, ONLY SCAN NEEDED DIFFERENTIAL [id number] 10:45:00* Test Item Value Reference Range Comments STAIN ACCEPTABILITY (test code=STN ACCEPTABLE) MORPHOLOGY COMMENT (test code=MOC) PLATELET ESTIMATE (test code=PLTEST) PLATELET MORPHOLOGY (test code=PLTMORPH) CBC W/AUTO [id number] 10:45:00* Test Item Value Reference Range Comments WHITE BLOOD CELL (test code=WBC) 4.1 K/mm3 4.5-12.5 RED BLOOD CELL (test code=RBC) 2.82 mill/mm3 3.7-5.2 HEMOGLOBIN (test code=HGB) 8.3 gram/dL 11.5-15.5 HEMATOCRIT (test code=HCT) 27.1 % 36.0-46.0 MEAN CELL VOLUME (test code=MCV) 96.1 fL 80-98 MEAN CELL HGB (test code=MCH) 29.4 picogram 27.0-33.0 MEAN CELL HGB CONCETRATION (test code=MCHC) 30.6 gram/dL 33.0-36.0 RED CELL DISTRIBUTION WIDTH (test code=RDW) 17.2 % 11.6-16.2 RED CELL DISTRIBUTION WIDTH SD (test code=RDW-SD) 56.7 fL 37.0-51.0 PLATELET COUNT (test code=PLT) 17 K/mm3 150-450 Results called to [id number] by Ninfa.HARI 04/05/19 1044Critical results verified and read back by Nurse? Y MEAN PLATELET VOLUME (test code=MPV) TEST NOT PERFORMED fL 6.7-11.0 NEUTROPHIL % (test code=NT%) 88.8 % 39.0-69.0 IMMATURE GRANULOCYTE % (test code=IG%) 0.7 % 0.0-5.0 LYMPHOCYTE % (test code=LY%) 6.1 % 25.0-55.0 MONOCYTE % (test code=MO%) 4.4 % 0.0-10.0 EOSINOPHIL % (test code=EO%) 0.0 % 0.0-5.0 BASOPHIL % (test code=BA%) 0.0 % 0.0-1.0 NUCLEATED RBC % (test code=NRBC%) 0.0 % 0-0 NEUTROPHIL # (test code=NT#) 3.65 K/mm3 1.8-7.7 IMMATURE GRANULOCYTE # (test code=IG#) 0.03 x10 3/uL 0-0.03 LYMPHOCYTE # (test code=LY#) 0.25 K/mm3 1.0-5.0 MONOCYTE # (test code=MO#) 0.18 K/mm3 0-0.8 EOSINOPHIL # (test code=EO#) 0.00 K/mm3 0.0-0.5 BASOPHIL # (test code=BA#) 0.00 K/mm3 0.0-0.2 NUCLEATED RBC # (test code=NRBC#) 0.00 K/mm3 0.0-0.1 MANUAL DIFF REQUIRED (test code=MDIFF) NO, ONLY SCAN NEEDED DIFFERENTIAL [id number] 10:45:00* Test Item Value Reference Range Comments STAIN ACCEPTABILITY (test code=STN ACCEPTABLE) MORPHOLOGY COMMENT (test code=MOC) PLATELET ESTIMATE (test code=PLTEST) PLATELET MORPHOLOGY (test code=PLTMORPH) CBC W/AUTO [id number] 10:45:00* Test Item Value Reference Range Comments WHITE BLOOD CELL (test code=WBC) 4.1 K/mm3 4.5-12.5 RED BLOOD CELL (test code=RBC) 2.82 mill/mm3 3.7-5.2 HEMOGLOBIN (test code=HGB) 8.3 gram/dL 11.5-15.5 HEMATOCRIT (test code=HCT) 27.1 % 36.0-46.0 MEAN CELL VOLUME (test code=MCV) 96.1 fL 80-98 MEAN CELL HGB (test code=MCH) 29.4 picogram 27.0-33.0 MEAN CELL HGB CONCETRATION (test code=MCHC) 30.6 gram/dL 33.0-36.0 RED CELL DISTRIBUTION WIDTH (test code=RDW) 17.2 % 11.6-16.2 RED CELL DISTRIBUTION WIDTH SD (test code=RDW-SD) 56.7 fL 37.0-51.0 PLATELET COUNT (test code=PLT) 17 K/mm3 150-450 Results called to [id number] by V.LAB.ISRA 04/05/19 1044Critical results verified and read back by Nurse? Y MEAN PLATELET VOLUME (test code=MPV) TEST NOT PERFORMED fL 6.7-11.0 NEUTROPHIL % (test code=NT%) 88.8 % 39.0-69.0 IMMATURE GRANULOCYTE % (test code=IG%) 0.7 % 0.0-5.0 LYMPHOCYTE % (test code=LY%) 6.1 % 25.0-55.0 MONOCYTE % (test code=MO%) 4.4 % 0.0-10.0 EOSINOPHIL % (test code=EO%) 0.0 % 0.0-5.0 BASOPHIL % (test code=BA%) 0.0 % 0.0-1.0 NUCLEATED RBC % (test code=NRBC%) 0.0 % 0-0 NEUTROPHIL # (test code=NT#) 3.65 K/mm3 1.8-7.7 IMMATURE GRANULOCYTE # (test code=IG#) 0.03 x10 3/uL 0-0.03 LYMPHOCYTE # (test code=LY#) 0.25 K/mm3 1.0-5.0 MONOCYTE # (test code=MO#) 0.18 K/mm3 0-0.8 EOSINOPHIL # (test code=EO#) 0.00 K/mm3 0.0-0.5 BASOPHIL # (test code=BA#) 0.00 K/mm3 0.0-0.2 NUCLEATED RBC # (test code=NRBC#) 0.00 K/mm3 0.0-0.1 MANUAL DIFF REQUIRED (test code=MDIFF) NO, ONLY SCAN NEEDED DIFFERENTIAL [id number] 10:45:00* Test Item Value Reference Range Comments STAIN ACCEPTABILITY (test code=STN ACCEPTABLE) CABOT RINGS (test code=CAB) MORPHOLOGY COMMENT (test code=MOC) PLATELET ESTIMATE (test code=PLTEST) PLATELET MORPHOLOGY (test code=PLTMORPH) CBC W/AUTO [id number] 14:11:00* Test Item Value Reference Range Comments WHITE BLOOD CELL (test code=WBC) 5.2 K/mm3 4.5-12.5 RED BLOOD CELL (test code=RBC) 3.02 mill/mm3 3.7-5.2 HEMOGLOBIN (test code=HGB) 8.8 gram/dL 11.5-15.5 HEMATOCRIT (test code=HCT) 28.7 % 36.0-46.0 MEAN CELL VOLUME (test code=MCV) 95.0 fL 80-98 MEAN CELL HGB (test code=MCH) 29.1 picogram 27.0-33.0 MEAN CELL HGB CONCETRATION (test code=MCHC) 30.7 gram/dL 33.0-36.0 RED CELL DISTRIBUTION WIDTH (test code=RDW) 17.3 % 11.6-16.2 RED CELL DISTRIBUTION WIDTH SD (test code=RDW-SD) 55.7 fL 37.0-51.0 PLATELET COUNT (test code=PLT) 17 K/mm3 150-450 Results called to [id number] by [facility]ESE[facility] 04/04/19 1310Critical results verified and read back by Nurse? Y NEUTROPHIL % (test code=NT%) 93.2 % 39.0-69.0 IMMATURE GRANULOCYTE % (test code=IG%) 0.8 % 0.0-5.0 LYMPHOCYTE % (test code=LY%) 3.3 % 25.0-55.0 MONOCYTE % (test code=MO%) 2.7 % 0.0-10.0 EOSINOPHIL % (test code=EO%) 0.0 % 0.0-5.0 BASOPHIL % (test code=BA%) 0.0 % 0.0-1.0 NUCLEATED RBC % (test code=NRBC%) 0.0 % 0-0 NEUTROPHIL # (test code=NT#) 4.81 K/mm3 1.8-7.7 IMMATURE GRANULOCYTE # (test code=IG#) 0.04 x10 3/uL 0-0.03 LYMPHOCYTE # (test code=LY#) 0.17 K/mm3 1.0-5.0 MONOCYTE # (test code=MO#) 0.14 K/mm3 0-0.8 EOSINOPHIL # (test code=EO#) 0.00 K/mm3 0.0-0.5 BASOPHIL # (test code=BA#) 0.00 K/mm3 0.0-0.2 NUCLEATED RBC # (test code=NRBC#) 0.00 K/mm3 0.0-0.1 MANUAL DIFF REQUIRED (test code=MDIFF) NO, ONLY SCAN NEEDED DIFFERENTIAL [id number] 14:11:00* Test Item Value Reference Range Comments STAIN ACCEPTABILITY (test code=STN ACCEPTABLE) STAIN ACCEPTABLE ANISOCYTOSIS (test code=ANISO) 2+ MACROCYTOSIS (test code=MACR) 1+ PLATELET ESTIMATE (test code=PLTEST) ADEQUATE PLATELET MORPHOLOGY (test code=PLTMORPH) NORMAL BASIC METABOLIC [id number] 13:35:00* Test Item Value Reference Range Comments SODIUM (test code=NA) 145 mmol/L 136-145 POTASSIUM (test code=K) 5.6 mmol/L 3.5-5.1 CHLORIDE (test code=CL) 104.0 mmol/L 98-107 CARBON DIOXIDE (test code=CO2) 31.0 mmol/L 21-32 ANION GAP (test code=GAP) 15.6 10-20 GLUCOSE (test code=GLU) 152 mg/dL 74-106 BLOOD UREA NITROGEN (test code=BUN) 65 mg/dL 7-18 GLOMERULAR FILTRATION RATE (test code=GFR) 27 mL/min >=60 Estimated GFR by using Modified MDRD formula.Chronic kidney disease is defined as either kidney damageor GFR <60 mL/min/1.73 m2 for >3 months. CREATININE (test code=CREAT) 1.90 mg/dL 0.55-1.02 Note change in reference range due to change in reagent. BUN/CREATININE RATIO (test code=BUN/CREA) 33.9 10-20 CALCIUM (test code=CA) 8.0 mg/dL 8.5-10.1 CBC W/AUTO [id number] 13:11:00* Test Item Value Reference Range Comments WHITE BLOOD CELL (test code=WBC) 5.2 K/mm3 4.5-12.5 RED BLOOD CELL (test code=RBC) 3.02 mill/mm3 3.7-5.2 HEMOGLOBIN (test code=HGB) 8.8 gram/dL 11.5-15.5 HEMATOCRIT (test code=HCT) 28.7 % 36.0-46.0 MEAN CELL VOLUME (test code=MCV) 95.0 fL 80-98 MEAN CELL HGB (test code=MCH) 29.1 picogram 27.0-33.0 MEAN CELL HGB CONCETRATION (test code=MCHC) 30.7 gram/dL 33.0-36.0 RED CELL DISTRIBUTION WIDTH (test code=RDW) 17.3 % 11.6-16.2 RED CELL DISTRIBUTION WIDTH SD (test code=RDW-SD) 55.7 fL 37.0-51.0 PLATELET COUNT (test code=PLT) 17 K/mm3 150-450 Results called to [id number] by MADELAINERandi 04/04/19 1310Critical results verified and read back by Nurse? Y NEUTROPHIL % (test code=NT%) 93.2 % 39.0-69.0 IMMATURE GRANULOCYTE % (test code=IG%) 0.8 % 0.0-5.0 LYMPHOCYTE % (test code=LY%) 3.3 % 25.0-55.0 MONOCYTE % (test code=MO%) 2.7 % 0.0-10.0 EOSINOPHIL % (test code=EO%) 0.0 % 0.0-5.0 BASOPHIL % (test code=BA%) 0.0 % 0.0-1.0 NUCLEATED RBC % (test code=NRBC%) 0.0 % 0-0 NEUTROPHIL # (test code=NT#) 4.81 K/mm3 1.8-7.7 IMMATURE GRANULOCYTE # (test code=IG#) 0.04 x10 3/uL 0-0.03 LYMPHOCYTE # (test code=LY#) 0.17 K/mm3 1.0-5.0 MONOCYTE # (test code=MO#) 0.14 K/mm3 0-0.8 EOSINOPHIL # (test code=EO#) 0.00 K/mm3 0.0-0.5 BASOPHIL # (test code=BA#) 0.00 K/mm3 0.0-0.2 NUCLEATED RBC # (test code=NRBC#) 0.00 K/mm3 0.0-0.1 MANUAL DIFF REQUIRED (test code=MDIFF) NO, ONLY SCAN NEEDED DIFFERENTIAL [id number] 13:11:00* Test Item Value Reference Range Comments STAIN ACCEPTABILITY (test code=STN ACCEPTABLE) CABOT RINGS (test code=CAB) MORPHOLOGY COMMENT (test code=MOC) PLATELET ESTIMATE (test code=PLTEST) PLATELET MORPHOLOGY (test code=PLTMORPH) CBC W/AUTO [id number] 13:11:00* Test Item Value Reference Range Comments WHITE BLOOD CELL (test code=WBC) 5.2 K/mm3 4.5-12.5 RED BLOOD CELL (test code=RBC) 3.02 mill/mm3 3.7-5.2 HEMOGLOBIN (test code=HGB) 8.8 gram/dL 11.5-15.5 HEMATOCRIT (test code=HCT) 28.7 % 36.0-46.0 MEAN CELL VOLUME (test code=MCV) 95.0 fL 80-98 MEAN CELL HGB (test code=MCH) 29.1 picogram 27.0-33.0 MEAN CELL HGB CONCETRATION (test code=MCHC) 30.7 gram/dL 33.0-36.0 RED CELL DISTRIBUTION WIDTH (test code=RDW) 17.3 % 11.6-16.2 RED CELL DISTRIBUTION WIDTH SD (test code=RDW-SD) 55.7 fL 37.0-51.0 PLATELET COUNT (test code=PLT) 17 K/mm3 150-450 Results called [facility] [id number] [facility] 04/04/19 1310Critical results verified and read back by Nurse? Y NEUTROPHIL % (test code=NT%) 93.2 % 39.0-69.0 IMMATURE GRANULOCYTE % (test code=IG%) 0.8 % 0.0-5.0 LYMPHOCYTE % (test code=LY%) 3.3 % 25.0-55.0 MONOCYTE % (test code=MO%) 2.7 % 0.0-10.0 EOSINOPHIL % (test code=EO%) 0.0 % 0.0-5.0 BASOPHIL % (test code=BA%) 0.0 % 0.0-1.0 NUCLEATED RBC % (test code=NRBC%) 0.0 % 0-0 NEUTROPHIL # (test code=NT#) 4.81 K/mm3 1.8-7.7 IMMATURE GRANULOCYTE # (test code=IG#) 0.04 x10 3/uL 0-0.03 LYMPHOCYTE # (test code=LY#) 0.17 K/mm3 1.0-5.0 MONOCYTE # (test code=MO#) 0.14 K/mm3 0-0.8 EOSINOPHIL # (test code=EO#) 0.00 K/mm3 0.0-0.5 BASOPHIL # (test code=BA#) 0.00 K/mm3 0.0-0.2 NUCLEATED RBC # (test code=NRBC#) 0.00 K/mm3 0.0-0.1 MANUAL DIFF REQUIRED (test code=MDIFF) NO, ONLY SCAN NEEDED DIFFERENTIAL [id number] 13:11:00* Test Item Value Reference Range Comments STAIN ACCEPTABILITY (test code=STN ACCEPTABLE) CABOT RINGS (test code=CAB) MORPHOLOGY COMMENT (test code=MOC) PLATELET ESTIMATE (test code=PLTEST) PLATELET MORPHOLOGY (test code=PLTMORPH) CBC W/AUTO [id number] 13:11:00* Test Item Value Reference Range Comments WHITE BLOOD CELL (test code=WBC) 5.2 K/mm3 4.5-12.5 RED BLOOD CELL (test code=RBC) 3.02 mill/mm3 3.7-5.2 HEMOGLOBIN (test code=HGB) 8.8 gram/dL 11.5-15.5 HEMATOCRIT (test code=HCT) 28.7 % 36.0-46.0 MEAN CELL VOLUME (test code=MCV) 95.0 fL 80-98 MEAN CELL HGB (test code=MCH) 29.1 picogram 27.0-33.0 MEAN CELL HGB CONCETRATION (test code=MCHC) 30.7 gram/dL 33.0-36.0 RED CELL DISTRIBUTION WIDTH (test code=RDW) 17.3 % 11.6-16.2 RED CELL DISTRIBUTION WIDTH SD (test code=RDW-SD) 55.7 fL 37.0-51.0 PLATELET COUNT (test code=PLT) 17 K/mm3 150-450 Results [facility] [id number] [facility]/04[facility]19 1310Critical results verified and read back by Nurse? Y NEUTROPHIL % (test code=NT%) 93.2 % 39.0-69.0 IMMATURE GRANULOCYTE % (test code=IG%) 0.8 % 0.0-5.0 LYMPHOCYTE % (test code=LY%) 3.3 % 25.0-55.0 MONOCYTE % (test code=MO%) 2.7 % 0.0-10.0 EOSINOPHIL % (test code=EO%) 0.0 % 0.0-5.0 BASOPHIL % (test code=BA%) 0.0 % 0.0-1.0 NUCLEATED RBC % (test code=NRBC%) 0.0 % 0-0 NEUTROPHIL # (test code=NT#) 4.81 K/mm3 1.8-7.7 IMMATURE GRANULOCYTE # (test code=IG#) 0.04 x10 3/uL 0-0.03 LYMPHOCYTE # (test code=LY#) 0.17 K/mm3 1.0-5.0 MONOCYTE # (test code=MO#) 0.14 K/mm3 0-0.8 EOSINOPHIL # (test code=EO#) 0.00 K/mm3 0.0-0.5 BASOPHIL # (test code=BA#) 0.00 K/mm3 0.0-0.2 NUCLEATED RBC # (test code=NRBC#) 0.00 K/mm3 0.0-0.1 MANUAL DIFF REQUIRED (test code=MDIFF) NO, ONLY SCAN NEEDED DIFFERENTIAL [id number] 13:11:00* Test Item Value Reference Range Comments STAIN ACCEPTABILITY (test code=STN ACCEPTABLE) MORPHOLOGY COMMENT (test code=MOC) PLATELET ESTIMATE (test code=PLTEST) PLATELET MORPHOLOGY (test code=PLTMORPH) CBC W/AUTO [id number] 13:11:00* Test Item Value Reference Range Comments WHITE BLOOD CELL (test code=WBC) 5.2 K/mm3 4.5-12.5 RED BLOOD CELL (test code=RBC) 3.02 mill/mm3 3.7-5.2 HEMOGLOBIN (test code=HGB) 8.8 gram/dL 11.5-15.5 HEMATOCRIT (test code=HCT) 28.7 % 36.0-46.0 MEAN CELL VOLUME (test code=MCV) 95.0 fL 80-98 MEAN CELL HGB (test code=MCH) 29.1 picogram 27.0-33.0 MEAN CELL HGB CONCETRATION (test code=MCHC) 30.7 gram/dL 33.0-36.0 RED CELL DISTRIBUTION WIDTH (test code=RDW) 17.3 % 11.6-16.2 RED CELL DISTRIBUTION WIDTH SD (test code=RDW-SD) 55.7 fL 37.0-51.0 PLATELET COUNT (test code=PLT) 17 K/mm3 150-450 Results called to [id number] by [facility] 04/04/19 1310Critical results verified and read back by Nurse? Y NEUTROPHIL % (test code=NT%) 93.2 % 39.0-69.0 IMMATURE GRANULOCYTE % (test code=IG%) 0.8 % 0.0-5.0 LYMPHOCYTE % (test code=LY%) 3.3 % 25.0-55.0 MONOCYTE % (test code=MO%) 2.7 % 0.0-10.0 EOSINOPHIL % (test code=EO%) 0.0 % 0.0-5.0 BASOPHIL % (test code=BA%) 0.0 % 0.0-1.0 NUCLEATED RBC % (test code=NRBC%) 0.0 % 0-0 NEUTROPHIL # (test code=NT#) 4.81 K/mm3 1.8-7.7 IMMATURE GRANULOCYTE # (test code=IG#) 0.04 x10 3/uL 0-0.03 LYMPHOCYTE # (test code=LY#) 0.17 K/mm3 1.0-5.0 MONOCYTE # (test code=MO#) 0.14 K/mm3 0-0.8 EOSINOPHIL # (test code=EO#) 0.00 K/mm3 0.0-0.5 BASOPHIL # (test code=BA#) 0.00 K/mm3 0.0-0.2 NUCLEATED RBC # (test code=NRBC#) 0.00 K/mm3 0.0-0.1 MANUAL DIFF REQUIRED (test code=MDIFF) NO, ONLY SCAN NEEDED DIFFERENTIAL [id number] 13:11:00* Test Item Value Reference Range Comments STAIN ACCEPTABILITY (test code=STN ACCEPTABLE) CABOT RINGS (test code=CAB) MORPHOLOGY COMMENT (test code=MOC) PLATELET ESTIMATE (test code=PLTEST) PLATELET MORPHOLOGY (test code=PLTMORPH) CBC W/AUTO [id number] 12:34:00* Test Item Value Reference Range Comments WHITE BLOOD CELL (test code=WBC) 4.7 K/mm3 4.5-12.5 RED BLOOD CELL (test code=RBC) 2.86 mill/mm3 3.7-5.2 HEMOGLOBIN (test code=HGB) 8.3 gram/dL 11.5-15.5 HEMATOCRIT (test code=HCT) 27.2 % 36.0-46.0 MEAN CELL VOLUME (test code=MCV) 95.1 fL 80-98 MEAN CELL HGB (test code=MCH) 29.0 picogram 27.0-33.0 MEAN CELL HGB CONCETRATION (test code=MCHC) 30.5 gram/dL 33.0-36.0 RED CELL DISTRIBUTION WIDTH (test code=RDW) 17.3 % 11.6-16.2 RED CELL DISTRIBUTION WIDTH SD (test code=RDW-SD) 56.0 fL 37.0-51.0 PLATELET COUNT (test code=PLT) 19 K/mm3 150-450 Results called to [id number] by [facility] 04/02/19 1006Critical results verified and read back by Nurse? Y MEAN PLATELET VOLUME (test code=MPV) TEST NOT PERFORMED fL 6.7-11.0 NEUTROPHIL % (test code=NT%) 93.0 % 39.0-69.0 IMMATURE GRANULOCYTE % (test code=IG%) 1.1 % 0.0-5.0 LYMPHOCYTE % (test code=LY%) 3.6 % 25.0-55.0 MONOCYTE % (test code=MO%) 2.3 % 0.0-10.0 EOSINOPHIL % (test code=EO%) 0.0 % 0.0-5.0 BASOPHIL % (test code=BA%) 0.0 % 0.0-1.0 NUCLEATED RBC % (test code=NRBC%) 0.0 % 0-0 NEUTROPHIL # (test code=NT#) 4.38 K/mm3 1.8-7.7 IMMATURE GRANULOCYTE # (test code=IG#) 0.05 x10 3/uL 0-0.03 LYMPHOCYTE # (test code=LY#) 0.17 K/mm3 1.0-5.0 MONOCYTE # (test code=MO#) 0.11 K/mm3 0-0.8 EOSINOPHIL # (test code=EO#) 0.00 K/mm3 0.0-0.5 BASOPHIL # (test code=BA#) 0.00 K/mm3 0.0-0.2 NUCLEATED RBC # (test code=NRBC#) 0.00 K/mm3 0.0-0.1 MANUAL DIFF REQUIRED (test code=MDIFF) NO, ONLY SCAN NEEDED COME BACK LATER [facility] [id number] V.LAB.EP 04/02/19 0601DIFFERENTIAL [id number] 12:34:00* Test Item Value Reference Range Comments STAIN ACCEPTABILITY (test code=STN ACCEPTABLE) STAIN ACCEPTABLE HYPOCHROMIA (test code=HYPO) 1+ BASOPHILIC STIPPLING (test code=STP) RARE ANISOCYTOSIS (test code=ANISO) 1+ MACROCYTOSIS (test code=MACR) 1+ ELLIPTOCYTES (test code=ELL) 1+ PLATELET ESTIMATE (test code=PLTEST) DECREASED PLATELET MORPHOLOGY (test code=PLTMORPH) NORMAL OCCASIONAL LARGE PLATELETS COME BACK LATER [facility] [id number] V.LAB.EP 04/02/19 0601PATHOLOGISTS [id number] 12:34:00* Test Item Value Reference Range Comments PATHOLOGISTS FINDINGS (test code=PATH) COMMENTS PATH NOTES Reviewed by DANNY Vital 04/03/2019AnemiaThrombocytopeniaSLIDE REVIEWED BY PATHOLOGIST COME BACK LATER [facility] [id number] [facility] 04/02/19 0601CBC W/AUTO [id number] 11:57:00* Test Item Value Reference Range Comments WHITE BLOOD CELL (test code=WBC) 5.3 K/mm3 4.5-12.5 RED BLOOD CELL (test code=RBC) 2.91 mill/mm3 3.7-5.2 HEMOGLOBIN (test code=HGB) 8.5 gram/dL 11.5-15.5 HEMATOCRIT (test code=HCT) 28.1 % 36.0-46.0 MEAN CELL VOLUME (test code=MCV) 96.6 fL 80-98 MEAN CELL HGB (test code=MCH) 29.2 picogram 27.0-33.0 MEAN CELL HGB CONCETRATION (test code=MCHC) 30.2 gram/dL 33.0-36.0 RED CELL DISTRIBUTION WIDTH (test code=RDW) 17.5 % 11.6-16.2 RED CELL DISTRIBUTION WIDTH SD (test code=RDW-SD) 57.6 fL 37.0-51.0 PLATELET COUNT (test code=PLT) 19 K/mm3 150-450 esults called to [id number] by V.LAB.[facility] 04/03/19 1138Critical results verified and read back by Nurse? Y NEUTROPHIL % (test code=NT%) 93.4 % 39.0-69.0 IMMATURE GRANULOCYTE % (test code=IG%) 1.1 % 0.0-5.0 LYMPHOCYTE % (test code=LY%) 3.0 % 25.0-55.0 MONOCYTE % (test code=MO%) 2.5 % 0.0-10.0 EOSINOPHIL % (test code=EO%) 0.0 % 0.0-5.0 BASOPHIL % (test code=BA%) 0.0 % 0.0-1.0 NUCLEATED RBC % (test code=NRBC%) 0.0 % 0-0 NEUTROPHIL # (test code=NT#) 4.93 K/mm3 1.8-7.7 IMMATURE GRANULOCYTE # (test code=IG#) 0.06 x10 3/uL 0-0.03 LYMPHOCYTE # (test code=LY#) 0.16 K/mm3 1.0-5.0 MONOCYTE # (test code=MO#) 0.13 K/mm3 0-0.8 EOSINOPHIL # (test code=EO#) 0.00 K/mm3 0.0-0.5 BASOPHIL # (test code=BA#) 0.00 K/mm3 0.0-0.2 NUCLEATED RBC # (test code=NRBC#) 0.00 K/mm3 0.0-0.1 MANUAL DIFF REQUIRED (test code=MDIFF) NO, ONLY SCAN NEEDED DIFFERENTIAL [id number] 11:57:00* Test Item Value Reference Range Comments STAIN ACCEPTABILITY (test code=STN ACCEPTABLE) STAIN ACCEPTABLE ANISOCYTOSIS (test code=ANISO) 2+ MACROCYTOSIS (test code=MACR) 1+ PLATELET ESTIMATE (test code=PLTEST) DECREASED PLATELET MORPHOLOGY (test code=PLTMORPH) SIZE VARIABLE CBC W/AUTO [id number] 11:45:00* Test Item Value Reference Range Comments WHITE BLOOD CELL (test code=WBC) 5.3 K/mm3 4.5-12.5 RED BLOOD CELL (test code=RBC) 2.91 mill/mm3 3.7-5.2 HEMOGLOBIN (test code=HGB) 8.5 gram/dL 11.5-15.5 HEMATOCRIT (test code=HCT) 28.1 % 36.0-46.0 MEAN CELL VOLUME (test code=MCV) 96.6 fL 80-98 MEAN CELL HGB (test code=MCH) 29.2 picogram 27.0-33.0 MEAN CELL HGB CONCETRATION (test code=MCHC) 30.2 gram/dL 33.0-36.0 RED CELL DISTRIBUTION WIDTH (test code=RDW) 17.5 % 11.6-16.2 RED CELL DISTRIBUTION WIDTH SD (test code=RDW-SD) 57.6 fL 37.0-51.0 PLATELET COUNT (test code=PLT) 19 K/mm3 150-450 esults called to [id number] by ENMA 04/03/19 1138Critical results verified and read back by Nurse? Y NEUTROPHIL % (test code=NT%) 93.4 % 39.0-69.0 IMMATURE GRANULOCYTE % (test code=IG%) 1.1 % 0.0-5.0 LYMPHOCYTE % (test code=LY%) 3.0 % 25.0-55.0 MONOCYTE % (test code=MO%) 2.5 % 0.0-10.0 EOSINOPHIL % (test code=EO%) 0.0 % 0.0-5.0 BASOPHIL % (test code=BA%) 0.0 % 0.0-1.0 NUCLEATED RBC % (test code=NRBC%) 0.0 % 0-0 NEUTROPHIL # (test code=NT#) 4.93 K/mm3 1.8-7.7 IMMATURE GRANULOCYTE # (test code=IG#) 0.06 x10 3/uL 0-0.03 LYMPHOCYTE # (test code=LY#) 0.16 K/mm3 1.0-5.0 MONOCYTE # (test code=MO#) 0.13 K/mm3 0-0.8 EOSINOPHIL # (test code=EO#) 0.00 K/mm3 0.0-0.5 BASOPHIL # (test code=BA#) 0.00 K/mm3 0.0-0.2 NUCLEATED RBC # (test code=NRBC#) 0.00 K/mm3 0.0-0.1 MANUAL DIFF REQUIRED (test code=MDIFF) NO, ONLY SCAN NEEDED DIFFERENTIAL [id number] 11:45:00* Test Item Value Reference Range Comments STAIN ACCEPTABILITY (test code=STN ACCEPTABLE) CABOT RINGS (test code=CAB) MORPHOLOGY COMMENT (test code=MOC) PLATELET ESTIMATE (test code=PLTEST) PLATELET MORPHOLOGY (test code=PLTMORPH) CBC W/AUTO [id number] 11:45:00* Test Item Value Reference Range Comments WHITE BLOOD CELL (test code=WBC) 5.3 K/mm3 4.5-12.5 RED BLOOD CELL (test code=RBC) 2.91 mill/mm3 3.7-5.2 HEMOGLOBIN (test code=HGB) 8.5 gram/dL 11.5-15.5 HEMATOCRIT (test code=HCT) 28.1 % 36.0-46.0 MEAN CELL VOLUME (test code=MCV) 96.6 fL 80-98 MEAN CELL HGB (test code=MCH) 29.2 picogram 27.0-33.0 MEAN CELL HGB CONCETRATION (test code=MCHC) 30.2 gram/dL 33.0-36.0 RED CELL DISTRIBUTION WIDTH (test code=RDW) 17.5 % 11.6-16.2 RED CELL DISTRIBUTION WIDTH SD (test code=RDW-SD) 57.6 fL 37.0-51.0 PLATELET COUNT (test code=PLT) 19 K/mm3 150-450 esults called to [id number] by ENMA 04/03/19 1138Critical results verified and read back by Nurse? Y NEUTROPHIL % (test code=NT%) 93.4 % 39.0-69.0 IMMATURE GRANULOCYTE % (test code=IG%) 1.1 % 0.0-5.0 LYMPHOCYTE % (test code=LY%) 3.0 % 25.0-55.0 MONOCYTE % (test code=MO%) 2.5 % 0.0-10.0 EOSINOPHIL % (test code=EO%) 0.0 % 0.0-5.0 BASOPHIL % (test code=BA%) 0.0 % 0.0-1.0 NUCLEATED RBC % (test code=NRBC%) 0.0 % 0-0 NEUTROPHIL # (test code=NT#) 4.93 K/mm3 1.8-7.7 IMMATURE GRANULOCYTE # (test code=IG#) 0.06 x10 3/uL 0-0.03 LYMPHOCYTE # (test code=LY#) 0.16 K/mm3 1.0-5.0 MONOCYTE # (test code=MO#) 0.13 K/mm3 0-0.8 EOSINOPHIL # (test code=EO#) 0.00 K/mm3 0.0-0.5 BASOPHIL # (test code=BA#) 0.00 K/mm3 0.0-0.2 NUCLEATED RBC # (test code=NRBC#) 0.00 K/mm3 0.0-0.1 MANUAL DIFF REQUIRED (test code=MDIFF) NO, ONLY SCAN NEEDED DIFFERENTIAL [id number] 11:45:00* Test Item Value Reference Range Comments STAIN ACCEPTABILITY (test code=STN ACCEPTABLE) MORPHOLOGY COMMENT (test code=MOC) PLATELET ESTIMATE (test code=PLTEST) PLATELET MORPHOLOGY (test code=PLTMORPH) CBC W/AUTO [id number] 11:44:00* Test Item Value Reference Range Comments WHITE BLOOD CELL (test code=WBC) 5.3 K/mm3 4.5-12.5 RED BLOOD CELL (test code=RBC) 2.91 mill/mm3 3.7-5.2 HEMOGLOBIN (test code=HGB) 8.5 gram/dL 11.5-15.5 HEMATOCRIT (test code=HCT) 28.1 % 36.0-46.0 MEAN CELL VOLUME (test code=MCV) 96.6 fL 80-98 MEAN CELL HGB (test code=MCH) 29.2 picogram 27.0-33.0 MEAN CELL HGB CONCETRATION (test code=MCHC) 30.2 gram/dL 33.0-36.0 RED CELL DISTRIBUTION WIDTH (test code=RDW) 17.5 % 11.6-16.2 RED CELL DISTRIBUTION WIDTH SD (test code=RDW-SD) 57.6 fL 37.0-51.0 PLATELET COUNT (test code=PLT) 19 K/mm3 150-450 esults called to [id number] by ENMA 04/03/19 1138Critical results verified and read back by Nurse? Y NEUTROPHIL % (test code=NT%) 93.4 % 39.0-69.0 IMMATURE GRANULOCYTE % (test code=IG%) 1.1 % 0.0-5.0 LYMPHOCYTE % (test code=LY%) 3.0 % 25.0-55.0 MONOCYTE % (test code=MO%) 2.5 % 0.0-10.0 EOSINOPHIL % (test code=EO%) 0.0 % 0.0-5.0 BASOPHIL % (test code=BA%) 0.0 % 0.0-1.0 NUCLEATED RBC % (test code=NRBC%) 0.0 % 0-0 NEUTROPHIL # (test code=NT#) 4.93 K/mm3 1.8-7.7 IMMATURE GRANULOCYTE # (test code=IG#) 0.06 x10 3/uL 0-0.03 LYMPHOCYTE # (test code=LY#) 0.16 K/mm3 1.0-5.0 MONOCYTE # (test code=MO#) 0.13 K/mm3 0-0.8 EOSINOPHIL # (test code=EO#) 0.00 K/mm3 0.0-0.5 BASOPHIL # (test code=BA#) 0.00 K/mm3 0.0-0.2 NUCLEATED RBC # (test code=NRBC#) 0.00 K/mm3 0.0-0.1 MANUAL DIFF REQUIRED (test code=MDIFF) NO, ONLY SCAN NEEDED DIFFERENTIAL [id number] 11:44:00* Test Item Value Reference Range Comments STAIN ACCEPTABILITY (test code=STN ACCEPTABLE) CABOT RINGS (test code=CAB) MORPHOLOGY COMMENT (test code=MOC) PLATELET ESTIMATE (test code=PLTEST) PLATELET MORPHOLOGY (test code=PLTMORPH) CBC W/AUTO [id number] 11:44:00* Test Item Value Reference Range Comments WHITE BLOOD CELL (test code=WBC) 5.3 K/mm3 4.5-12.5 RED BLOOD CELL (test code=RBC) 2.91 mill/mm3 3.7-5.2 HEMOGLOBIN (test code=HGB) 8.5 gram/dL 11.5-15.5 HEMATOCRIT (test code=HCT) 28.1 % 36.0-46.0 MEAN CELL VOLUME (test code=MCV) 96.6 fL 80-98 MEAN CELL HGB (test code=MCH) 29.2 picogram 27.0-33.0 MEAN CELL HGB CONCETRATION (test code=MCHC) 30.2 gram/dL 33.0-36.0 RED CELL DISTRIBUTION WIDTH (test code=RDW) 17.5 % 11.6-16.2 RED CELL DISTRIBUTION WIDTH SD (test code=RDW-SD) 57.6 fL 37.0-51.0 PLATELET COUNT (test code=PLT) 19 K/mm3 150-450 esults called to [id number] by ENMA 04/03/19 1138Critical results verified and read back by Nurse? Y NEUTROPHIL % (test code=NT%) 93.4 % 39.0-69.0 IMMATURE GRANULOCYTE % (test code=IG%) 1.1 % 0.0-5.0 LYMPHOCYTE % (test code=LY%) 3.0 % 25.0-55.0 MONOCYTE % (test code=MO%) 2.5 % 0.0-10.0 EOSINOPHIL % (test code=EO%) 0.0 % 0.0-5.0 BASOPHIL % (test code=BA%) 0.0 % 0.0-1.0 NUCLEATED RBC % (test code=NRBC%) 0.0 % 0-0 NEUTROPHIL # (test code=NT#) 4.93 K/mm3 1.8-7.7 IMMATURE GRANULOCYTE # (test code=IG#) 0.06 x10 3/uL 0-0.03 LYMPHOCYTE # (test code=LY#) 0.16 K/mm3 1.0-5.0 MONOCYTE # (test code=MO#) 0.13 K/mm3 0-0.8 EOSINOPHIL # (test code=EO#) 0.00 K/mm3 0.0-0.5 BASOPHIL # (test code=BA#) 0.00 K/mm3 0.0-0.2 NUCLEATED RBC # (test code=NRBC#) 0.00 K/mm3 0.0-0.1 MANUAL DIFF REQUIRED (test code=MDIFF) NO, ONLY SCAN NEEDED DIFFERENTIAL [id number] 11:44:00* Test Item Value Reference Range Comments STAIN ACCEPTABILITY (test code=STN ACCEPTABLE) CABOT RINGS (test code=CAB) MORPHOLOGY COMMENT (test code=MOC) PLATELET ESTIMATE (test code=PLTEST) PLATELET MORPHOLOGY (test code=PLTMORPH) BASIC METABOLIC [id number] 11:43:00* Test Item Value Reference Range Comments SODIUM (test code=NA) 142 mmol/L 136-145 POTASSIUM (test code=K) 5.4 mmol/L 3.5-5.1 CHLORIDE (test code=CL) 103.0 mmol/L 98-107 CARBON DIOXIDE (test code=CO2) 31.0 mmol/L 21-32 ANION GAP (test code=GAP) 13.4 10-20 GLUCOSE (test code=GLU) 178 mg/dL 74-106 BLOOD UREA NITROGEN (test code=BUN) 72 mg/dL 7-18 GLOMERULAR FILTRATION RATE (test code=GFR) 26 mL/min >=60 Estimated GFR by using Modified MDRD formula.Chronic kidney disease is defined as either kidney damageor GFR <60 mL/min/1.73 m2 for >3 months. CREATININE (test code=CREAT) 2.00 mg/dL 0.55-1.02 Note change in reference range due to change in reagent. BUN/CREATININE RATIO (test code=BUN/CREA) 36.4 10-20 CALCIUM (test code=CA) 7.9 mg/dL 8.5-10.1 [id number] 11:43:00* Test Item Value Reference Range Comments PHOSPHORUS (test code=PHOS) 4.4 mg/dL 2.5-4.9 [id number] 11:43:00* Test Item Value Reference Range Comments MAGNESIUM (test code=MAG) 2.1 mg/dL 1.8-2.4 BASIC METABOLIC [id number] 11:37:00* Test Item Value Reference Range Comments SODIUM (test code=NA) 142 mmol/L 136-145 POTASSIUM (test code=K) 5.4 mmol/L 3.5-5.1 CHLORIDE (test code=CL) 103.0 mmol/L 98-107 CARBON DIOXIDE (test code=CO2) mmol/L 21-32 ANION GAP (test code=GAP) 10-20 GLUCOSE (test code=GLU) mg/dL 74-106 BLOOD UREA NITROGEN (test code=BUN) mg/dL 7-18 GLOMERULAR FILTRATION RATE (test code=GFR) mL/min >=60 CREATININE (test code=CREAT) mg/dL 0.55-1.02 BUN/CREATININE RATIO (test code=BUN/CREA) 10-20 CALCIUM (test code=CA) mg/dL 8.5-10.1 [id number] 11:37:00* Test Item Value Reference Range Comments PHOSPHORUS (test code=PHOS) mg/dL 2.5-4.9 [id number] 11:37:00* Test Item Value Reference Range Comments MAGNESIUM (test code=MAG) mg/dL 1.8-2.4 - XR ABDOMEN AP 1 [id number] 17:05:00 FAX: Gray Luong MD [place]: B : [facility] FAX: Terrence Carter [phone] Name: SIOBHAN BARBOSA [facility] : 1965 Age/S: 54/F Jana Whiting Unit #: [id number] Loc: [place] [address] 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 A double-J left ureteral stent noted. No evidence of organomegaly or evidence of ascites. No evidence of free air. IMPRESSION: Minimal nonspecific gaseous distention of small bowel loops suggestive of ileus. Moderate amount of stool in the sigmoid colon suggestive of constipation. at 1709 Reported and signed by: Jewel Reyez M.D. CC: Gray Knott; Terrence Archibald NP Technologist: Katja Bhat(Tanya) Trnscrd Date/Time/By: 04/02/2019 (9544) : By: AnahiL Orig Print D/T: S: 04/02/2019 (2946) PAGE 1 Signed Report CBC W/AUTO [id number] 11:59:00* Test Item Value Reference Range Comments WHITE BLOOD CELL (test code=WBC) 4.7 K/mm3 4.5-12.5 RED BLOOD CELL (test code=RBC) 2.86 mill/mm3 3.7-5.2 HEMOGLOBIN (test code=HGB) 8.3 gram/dL 11.5-15.5 HEMATOCRIT (test code=HCT) 27.2 % 36.0-46.0 MEAN CELL VOLUME (test code=MCV) 95.1 fL 80-98 MEAN CELL HGB (test code=MCH) 29.0 picogram 27.0-33.0 MEAN CELL HGB CONCETRATION (test code=MCHC) 30.5 gram/dL 33.0-36.0 RED CELL DISTRIBUTION WIDTH (test code=RDW) 17.3 % 11.6-16.2 RED CELL DISTRIBUTION WIDTH SD (test code=RDW-SD) 56.0 fL 37.0-51.0 PLATELET COUNT (test code=PLT) 19 K/mm3 150-450 Results called to [id number] by V.LAB.CF2 04/02/19 1006Critical results verified and read back by Nurse? Y MEAN PLATELET VOLUME (test code=MPV) TEST NOT PERFORMED fL 6.7-11.0 NEUTROPHIL % (test code=NT%) 93.0 % 39.0-69.0 IMMATURE GRANULOCYTE % (test code=IG%) 1.1 % 0.0-5.0 LYMPHOCYTE % (test code=LY%) 3.6 % 25.0-55.0 MONOCYTE % (test code=MO%) 2.3 % 0.0-10.0 EOSINOPHIL % (test code=EO%) 0.0 % 0.0-5.0 BASOPHIL % (test code=BA%) 0.0 % 0.0-1.0 NUCLEATED RBC % (test code=NRBC%) 0.0 % 0-0 NEUTROPHIL # (test code=NT#) 4.38 K/mm3 1.8-7.7 IMMATURE GRANULOCYTE # (test code=IG#) 0.05 x10 3/uL 0-0.03 LYMPHOCYTE # (test code=LY#) 0.17 K/mm3 1.0-5.0 MONOCYTE # (test code=MO#) 0.11 K/mm3 0-0.8 EOSINOPHIL # (test code=EO#) 0.00 K/mm3 0.0-0.5 BASOPHIL # (test code=BA#) 0.00 K/mm3 0.0-0.2 NUCLEATED RBC # (test code=NRBC#) 0.00 K/mm3 0.0-0.1 MANUAL DIFF REQUIRED (test code=MDIFF) NO, ONLY SCAN NEEDED COME BACK LATER SABINE [id number] V.LAB.EP 04/02/19 0601DIFFERENTIAL [id number] 11:59:00* Test Item Value Reference Range Comments STAIN ACCEPTABILITY (test code=STN ACCEPTABLE) STAIN ACCEPTABLE HYPOCHROMIA (test code=HYPO) 1+ BASOPHILIC STIPPLING (test code=STP) RARE ANISOCYTOSIS (test code=ANISO) 1+ MACROCYTOSIS (test code=MACR) 1+ ELLIPTOCYTES (test code=ELL) 1+ PLATELET ESTIMATE (test code=PLTEST) DECREASED PLATELET MORPHOLOGY (test code=PLTMORPH) NORMAL OCCASIONAL LARGE PLATELETS COME BACK LATER SABINE [id number] V.LAB.EP 04/02/19 0601PATHOLOGISTS [id number] 11:59:00* Test Item Value Reference Range Comments PATHOLOGISTS FINDINGS (test code=PATH) PATH NOTES COME BACK LATER SABINE [id number] V.LAB.EP 04/02/19 0601CBC W/AUTO [id number] 11:10:00* Test Item Value Reference Range Comments WHITE BLOOD CELL (test code=WBC) 4.7 K/mm3 4.5-12.5 RED BLOOD CELL (test code=RBC) 2.86 mill/mm3 3.7-5.2 HEMOGLOBIN (test code=HGB) 8.3 gram/dL 11.5-15.5 HEMATOCRIT (test code=HCT) 27.2 % 36.0-46.0 MEAN CELL VOLUME (test code=MCV) 95.1 fL 80-98 MEAN CELL HGB (test code=MCH) 29.0 picogram 27.0-33.0 MEAN CELL HGB CONCETRATION (test code=MCHC) 30.5 gram/dL 33.0-36.0 RED CELL DISTRIBUTION WIDTH (test code=RDW) 17.3 % 11.6-16.2 RED CELL DISTRIBUTION WIDTH SD (test code=RDW-SD) 56.0 fL 37.0-51.0 PLATELET COUNT (test code=PLT) 19 K/mm3 150-450 Results called to [id number] by V.LAB.[facility] 04/02/19 1006Critical results verified and read back by Nurse? Y MEAN PLATELET VOLUME (test code=MPV) TEST NOT PERFORMED fL 6.7-11.0 NEUTROPHIL % (test code=NT%) 93.0 % 39.0-69.0 IMMATURE GRANULOCYTE % (test code=IG%) 1.1 % 0.0-5.0 LYMPHOCYTE % (test code=LY%) 3.6 % 25.0-55.0 MONOCYTE % (test code=MO%) 2.3 % 0.0-10.0 EOSINOPHIL % (test code=EO%) 0.0 % 0.0-5.0 BASOPHIL % (test code=BA%) 0.0 % 0.0-1.0 NUCLEATED RBC % (test code=NRBC%) 0.0 % 0-0 NEUTROPHIL # (test code=NT#) 4.38 K/mm3 1.8-7.7 IMMATURE GRANULOCYTE # (test code=IG#) 0.05 x10 3/uL 0-0.03 LYMPHOCYTE # (test code=LY#) 0.17 K/mm3 1.0-5.0 MONOCYTE # (test code=MO#) 0.11 K/mm3 0-0.8 EOSINOPHIL # (test code=EO#) 0.00 K/mm3 0.0-0.5 BASOPHIL # (test code=BA#) 0.00 K/mm3 0.0-0.2 NUCLEATED RBC # (test code=NRBC#) 0.00 K/mm3 0.0-0.1 MANUAL DIFF REQUIRED (test code=MDIFF) NO, ONLY SCAN NEEDED COME BACK LATER SABINE [id number] V.LAB.EP 04/02/19 0601DIFFERENTIAL [id number] 11:10:00* Test Item Value Reference Range Comments STAIN ACCEPTABILITY (test code=STN ACCEPTABLE) STAIN ACCEPTABLE HYPOCHROMIA (test code=HYPO) 1+ BASOPHILIC STIPPLING (test code=STP) RARE ANISOCYTOSIS (test code=ANISO) 1+ MACROCYTOSIS (test code=MACR) 1+ ELLIPTOCYTES (test code=ELL) 1+ PLATELET ESTIMATE (test code=PLTEST) DECREASED PLATELET MORPHOLOGY (test code=PLTMORPH) NORMAL OCCASIONAL LARGE PLATELETS COME BACK LATER SABINE [id number] V.LAB.EP 04/02/19 0601CBC W/AUTO [id number] 10:06:00* Test Item Value Reference Range Comments WHITE BLOOD CELL (test code=WBC) 4.7 K/mm3 4.5-12.5 RED BLOOD CELL (test code=RBC) 2.86 mill/mm3 3.7-5.2 HEMOGLOBIN (test code=HGB) 8.3 gram/dL 11.5-15.5 HEMATOCRIT (test code=HCT) 27.2 % 36.0-46.0 MEAN CELL VOLUME (test code=MCV) 95.1 fL 80-98 MEAN CELL HGB (test code=MCH) 29.0 picogram 27.0-33.0 MEAN CELL HGB CONCETRATION (test code=MCHC) 30.5 gram/dL 33.0-36.0 RED CELL DISTRIBUTION WIDTH (test code=RDW) 17.3 % 11.6-16.2 RED CELL DISTRIBUTION WIDTH SD (test code=RDW-SD) 56.0 fL 37.0-51.0 PLATELET COUNT (test code=PLT) 19 K/mm3 150-450 Results called to [id number] by V.LAB.CF2 04/02/19 1006Critical results verified and read back by Nurse? Y MEAN PLATELET VOLUME (test code=MPV) TEST NOT PERFORMED fL 6.7-11.0 NEUTROPHIL % (test code=NT%) 93.0 % 39.0-69.0 IMMATURE GRANULOCYTE % (test code=IG%) 1.1 % 0.0-5.0 LYMPHOCYTE % (test code=LY%) 3.6 % 25.0-55.0 MONOCYTE % (test code=MO%) 2.3 % 0.0-10.0 EOSINOPHIL % (test code=EO%) 0.0 % 0.0-5.0 BASOPHIL % (test code=BA%) 0.0 % 0.0-1.0 NUCLEATED RBC % (test code=NRBC%) 0.0 % 0-0 NEUTROPHIL # (test code=NT#) 4.38 K/mm3 1.8-7.7 IMMATURE GRANULOCYTE # (test code=IG#) 0.05 x10 3/uL 0-0.03 LYMPHOCYTE # (test code=LY#) 0.17 K/mm3 1.0-5.0 MONOCYTE # (test code=MO#) 0.11 K/mm3 0-0.8 EOSINOPHIL # (test code=EO#) 0.00 K/mm3 0.0-0.5 BASOPHIL # (test code=BA#) 0.00 K/mm3 0.0-0.2 NUCLEATED RBC # (test code=NRBC#) 0.00 K/mm3 0.0-0.1 MANUAL DIFF REQUIRED (test code=MDIFF) NO, ONLY SCAN NEEDED COME BACK LATER SABINE [id number] V.LAB.EP 04/02/19 0601DIFFERENTIAL [id number] 10:06:00* Test Item Value Reference Range Comments STAIN ACCEPTABILITY (test code=STN ACCEPTABLE) CABOT RINGS (test code=CAB) MORPHOLOGY COMMENT (test code=MOC) PLATELET ESTIMATE (test code=PLTEST) PLATELET MORPHOLOGY (test code=PLTMORPH) COME BACK LATER SABINE [id number] V.LAB.EP 04/02/19 0601CBC W/AUTO [id number] 10:06:00* Test Item Value Reference Range Comments WHITE BLOOD CELL (test code=WBC) 4.7 K/mm3 4.5-12.5 RED BLOOD CELL (test code=RBC) 2.86 mill/mm3 3.7-5.2 HEMOGLOBIN (test code=HGB) 8.3 gram/dL 11.5-15.5 HEMATOCRIT (test code=HCT) 27.2 % 36.0-46.0 MEAN CELL VOLUME (test code=MCV) 95.1 fL 80-98 MEAN CELL HGB (test code=MCH) 29.0 picogram 27.0-33.0 MEAN CELL HGB CONCETRATION (test code=MCHC) 30.5 gram/dL 33.0-36.0 RED CELL DISTRIBUTION WIDTH (test code=RDW) 17.3 % 11.6-16.2 RED CELL DISTRIBUTION WIDTH SD (test code=RDW-SD) 56.0 fL 37.0-51.0 PLATELET COUNT (test code=PLT) 19 K/mm3 150-450 Results called to [id number] by V.LAB.CF2 04/02/19 1006Critical results verified and read back by Nurse? Y MEAN PLATELET VOLUME (test code=MPV) TEST NOT PERFORMED fL 6.7-11.0 NEUTROPHIL % (test code=NT%) 93.0 % 39.0-69.0 IMMATURE GRANULOCYTE % (test code=IG%) 1.1 % 0.0-5.0 LYMPHOCYTE % (test code=LY%) 3.6 % 25.0-55.0 MONOCYTE % (test code=MO%) 2.3 % 0.0-10.0 EOSINOPHIL % (test code=EO%) 0.0 % 0.0-5.0 BASOPHIL % (test code=BA%) 0.0 % 0.0-1.0 NUCLEATED RBC % (test code=NRBC%) 0.0 % 0-0 NEUTROPHIL # (test code=NT#) 4.38 K/mm3 1.8-7.7 IMMATURE GRANULOCYTE # (test code=IG#) 0.05 x10 3/uL 0-0.03 LYMPHOCYTE # (test code=LY#) 0.17 K/mm3 1.0-5.0 MONOCYTE # (test code=MO#) 0.11 K/mm3 0-0.8 EOSINOPHIL # (test code=EO#) 0.00 K/mm3 0.0-0.5 BASOPHIL # (test code=BA#) 0.00 K/mm3 0.0-0.2 NUCLEATED RBC # (test code=NRBC#) 0.00 K/mm3 0.0-0.1 MANUAL DIFF REQUIRED (test code=MDIFF) NO, ONLY SCAN NEEDED COME BACK LATER SABINE CAMPA V.LAB. 04/02/19 0601DIFFERENTIAL [id number] 10:06:00* Test Item Value Reference Range Comments STAIN ACCEPTABILITY (test code=STN ACCEPTABLE) CABOT RINGS (test code=CAB) MORPHOLOGY COMMENT (test code=MOC) PLATELET ESTIMATE (test code=PLTEST) PLATELET MORPHOLOGY (test code=PLTMORPH) COME BACK LATER SABINE CAMPA VWilliamsLAB. 04/02/19 0601CBC W/AUTO [id number] 10:06:00* Test Item Value Reference Range Comments WHITE BLOOD CELL (test code=WBC) 4.7 K/mm3 4.5-12.5 RED BLOOD CELL (test code=RBC) 2.86 mill/mm3 3.7-5.2 HEMOGLOBIN (test code=HGB) 8.3 gram/dL 11.5-15.5 HEMATOCRIT (test code=HCT) 27.2 % 36.0-46.0 MEAN CELL VOLUME (test code=MCV) 95.1 fL 80-98 MEAN CELL HGB (test code=MCH) 29.0 picogram 27.0-33.0 MEAN CELL HGB CONCETRATION (test code=MCHC) 30.5 gram/dL 33.0-36.0 RED CELL DISTRIBUTION WIDTH (test code=RDW) 17.3 % 11.6-16.2 RED CELL DISTRIBUTION WIDTH SD (test code=RDW-SD) 56.0 fL 37.0-51.0 PLATELET COUNT (test code=PLT) 19 K/mm3 150-450 Results called to [id number] by [email or web address] 04/02/19 1006Critical results verified and read back by Nurse? Y MEAN PLATELET VOLUME (test code=MPV) TEST NOT PERFORMED fL 6.7-11.0 NEUTROPHIL % (test code=NT%) 93.0 % 39.0-69.0 IMMATURE GRANULOCYTE % (test code=IG%) 1.1 % 0.0-5.0 LYMPHOCYTE % (test code=LY%) 3.6 % 25.0-55.0 MONOCYTE % (test code=MO%) 2.3 % 0.0-10.0 EOSINOPHIL % (test code=EO%) 0.0 % 0.0-5.0 BASOPHIL % (test code=BA%) 0.0 % 0.0-1.0 NUCLEATED RBC % (test code=NRBC%) 0.0 % 0-0 NEUTROPHIL # (test code=NT#) 4.38 K/mm3 1.8-7.7 IMMATURE GRANULOCYTE # (test code=IG#) 0.05 x10 3/uL 0-0.03 LYMPHOCYTE # (test code=LY#) 0.17 K/mm3 1.0-5.0 MONOCYTE # (test code=MO#) 0.11 K/mm3 0-0.8 EOSINOPHIL # (test code=EO#) 0.00 K/mm3 0.0-0.5 BASOPHIL # (test code=BA#) 0.00 K/mm3 0.0-0.2 NUCLEATED RBC # (test code=NRBC#) 0.00 K/mm3 0.0-0.1 MANUAL DIFF REQUIRED (test code=MDIFF) NO, ONLY SCAN NEEDED COME BACK LATER SABINE MALIK 04/02/19 0601DIFFERENTIAL [id number] 10:06:00* Test Item Value Reference Range Comments STAIN ACCEPTABILITY (test code=STN ACCEPTABLE) MORPHOLOGY COMMENT (test code=MOC) PLATELET ESTIMATE (test code=PLTEST) PLATELET MORPHOLOGY (test code=PLTMORPH) COME BACK LATER SABINE CAMPA V.LAB.EP 04/02/19 0601CBC W/AUTO [id number] 10:06:00* Test Item Value Reference Range Comments WHITE BLOOD CELL (test code=WBC) 4.7 K/mm3 4.5-12.5 RED BLOOD CELL (test code=RBC) 2.86 mill/mm3 3.7-5.2 HEMOGLOBIN (test code=HGB) 8.3 gram/dL 11.5-15.5 HEMATOCRIT (test code=HCT) 27.2 % 36.0-46.0 MEAN CELL VOLUME (test code=MCV) 95.1 fL 80-98 MEAN CELL HGB (test code=MCH) 29.0 picogram 27.0-33.0 MEAN CELL HGB CONCETRATION (test code=MCHC) 30.5 gram/dL 33.0-36.0 RED CELL DISTRIBUTION WIDTH (test code=RDW) 17.3 % 11.6-16.2 RED CELL DISTRIBUTION WIDTH SD (test code=RDW-SD) 56.0 fL 37.0-51.0 PLATELET COUNT (test code=PLT) 19 K/mm3 150-450 Results called to [id number] by V.LAB.CF2 04/02/19 1006Critical results verified and read back by Nurse? Y MEAN PLATELET VOLUME (test code=MPV) TEST NOT PERFORMED fL 6.7-11.0 NEUTROPHIL % (test code=NT%) 93.0 % 39.0-69.0 IMMATURE GRANULOCYTE % (test code=IG%) 1.1 % 0.0-5.0 LYMPHOCYTE % (test code=LY%) 3.6 % 25.0-55.0 MONOCYTE % (test code=MO%) 2.3 % 0.0-10.0 EOSINOPHIL % (test code=EO%) 0.0 % 0.0-5.0 BASOPHIL % (test code=BA%) 0.0 % 0.0-1.0 NUCLEATED RBC % (test code=NRBC%) 0.0 % 0-0 NEUTROPHIL # (test code=NT#) 4.38 K/mm3 1.8-7.7 IMMATURE GRANULOCYTE # (test code=IG#) 0.05 x10 3/uL 0-0.03 LYMPHOCYTE # (test code=LY#) 0.17 K/mm3 1.0-5.0 MONOCYTE # (test code=MO#) 0.11 K/mm3 0-0.8 EOSINOPHIL # (test code=EO#) 0.00 K/mm3 0.0-0.5 BASOPHIL # (test code=BA#) 0.00 K/mm3 0.0-0.2 NUCLEATED RBC # (test code=NRBC#) 0.00 K/mm3 0.0-0.1 MANUAL DIFF REQUIRED (test code=MDIFF) NO, ONLY SCAN NEEDED COME BACK LATER SABINE [id number] V.LAB.EP 04/02/19 0601DIFFERENTIAL [id number] 10:06:00* Test Item Value Reference Range Comments STAIN ACCEPTABILITY (test code=STN ACCEPTABLE) CABOT RINGS (test code=CAB) MORPHOLOGY COMMENT (test code=MOC) PLATELET ESTIMATE (test code=PLTEST) PLATELET MORPHOLOGY (test code=PLTMORPH) COME BACK LATER SABINE [id number] V.LAB.EP 04/02/19 0601COMPREHENSIVE METABOLIC PANEL 2019-04-02 10:03:00* Test Item Value Reference Range Comments SODIUM (test code=NA) 143 mmol/L 136-145 POTASSIUM (test code=K) 4.7 mmol/L 3.5-5.1 CHLORIDE (test code=CL) 103.0 mmol/L 98-107 CARBON DIOXIDE (test code=CO2) 33.0 mmol/L 21-32 ANION GAP (test code=GAP) 11.7 10-20 GLUCOSE (test code=GLU) 158 mg/dL 74-106 BLOOD UREA NITROGEN (test code=BUN) 75 mg/dL 7-18 GLOMERULAR FILTRATION RATE (test code=GFR) 26 mL/min >=60 Estimated GFR by using Modified MDRD formula.Chronic kidney disease is defined as either kidney damageor GFR <60 mL/min/1.73 m2 for >3 months. CREATININE (test code=CREAT) 2.00 mg/dL 0.55-1.02 Note change in reference range due to change in reagent. BUN/CREATININE RATIO (test code=BUN/CREA) 36.8 10-20 TOTAL PROTEIN (test code=PROT) 5.7 gram/dL 6.4-8.2 ALBUMIN (test code=ALB) 2.1 g/dL 3.4-5.0 GLOBULIN (test code=GLOB) 3.6 gram/dL 2.7-4.2 ALBUMIN/GLOBULIN RATIO (test code=A/G) 0.6 0.75-1.50 CALCIUM (test code=CA) 7.9 mg/dL 8.5-10.1 BILIRUBIN TOTAL (test code=BILT) 0.70 mg/dL 0.0-1.0 SGOT/AST (test code=AST) 28 IUnit/L 15-37 SGPT/ALT (test code=ALT) 39 IUnit/L 12-78 ALKALINE PHOSPHATASE TOTAL (test code=ALKP) 327 IUnit/L 45-117 Note change in reference range due to change in reagent. COME BACK LATER SABINE [id number] V.LAB.EP 04/02/19 0601COMPREHENSIVE METABOLIC PANEL 2019-04-02 09:53:00* Test Item Value Reference Range Comments SODIUM (test code=NA) 143 mmol/L 136-145 POTASSIUM (test code=K) 4.7 mmol/L 3.5-5.1 CHLORIDE (test code=CL) 103.0 mmol/L 98-107 CARBON DIOXIDE (test code=CO2) mmol/L 21-32 ANION GAP (test code=GAP) 10-20 GLUCOSE (test code=GLU) mg/dL 74-106 BLOOD UREA NITROGEN (test code=BUN) mg/dL 7-18 GLOMERULAR FILTRATION RATE (test code=GFR) mL/min >=60 CREATININE (test code=CREAT) mg/dL 0.55-1.02 BUN/CREATININE RATIO (test code=BUN/CREA) 10-20 TOTAL PROTEIN (test code=PROT) gram/dL 6.4-8.2 ALBUMIN (test code=ALB) g/dL 3.4-5.0 GLOBULIN (test code=GLOB) gram/dL 2.7-4.2 ALBUMIN/GLOBULIN RATIO (test code=A/G) 0.75-1.50 CALCIUM (test code=CA) mg/dL 8.5-10.1 BILIRUBIN TOTAL (test code=BILT) mg/dL 0.0-1.0 SGOT/AST (test code=AST) IUnit/L 15-37 SGPT/ALT (test code=ALT) IUnit/L 12-78 ALKALINE PHOSPHATASE TOTAL (test code=ALKP) IUnit/L 45-117 COME BACK LATER RN [id number] V.LAB.EP 04/02/19 0601CBC W/AUTO [id number] 15:21:00* Test Item Value Reference Range Comments WHITE BLOOD CELL (test code=WBC) 5.0 K/mm3 4.5-12.5 RED BLOOD CELL (test code=RBC) 2.96 mill/mm3 3.7-5.2 HEMOGLOBIN (test code=HGB) 8.7 gram/dL 11.5-15.5 HEMATOCRIT (test code=HCT) 27.8 % 36.0-46.0 MEAN CELL VOLUME (test code=MCV) 93.9 fL 80-98 MEAN CELL HGB (test code=MCH) 29.4 picogram 27.0-33.0 MEAN CELL HGB CONCETRATION (test code=MCHC) 31.3 gram/dL 33.0-36.0 RED CELL DISTRIBUTION WIDTH (test code=RDW) 17.5 % 11.6-16.2 RED CELL DISTRIBUTION WIDTH SD (test code=RDW-SD) 56.0 fL 37.0-51.0 PLATELET COUNT (test code=PLT) 21 K/mm3 150-450 Results called to [id number] by V.LAB.TS1 04/01/19 1521Critical results verified and read back by Nurse? Y MEAN PLATELET VOLUME (test code=MPV) 11.1 fL 6.7-11.0 NEUTROPHIL % (test code=NT%) 93.8 % 39.0-69.0 IMMATURE GRANULOCYTE % (test code=IG%) 1.4 % 0.0-5.0 LYMPHOCYTE % (test code=LY%) 3.0 % 25.0-55.0 MONOCYTE % (test code=MO%) 1.8 % 0.0-10.0 EOSINOPHIL % (test code=EO%) 0.0 % 0.0-5.0 BASOPHIL % (test code=BA%) 0.0 % 0.0-1.0 NUCLEATED RBC % (test code=NRBC%) 0.0 % 0-0 NEUTROPHIL # (test code=NT#) 4.66 K/mm3 1.8-7.7 IMMATURE GRANULOCYTE # (test code=IG#) 0.07 x10 3/uL 0-0.03 LYMPHOCYTE # (test code=LY#) 0.15 K/mm3 1.0-5.0 MONOCYTE # (test code=MO#) 0.09 K/mm3 0-0.8 EOSINOPHIL # (test code=EO#) 0.00 K/mm3 0.0-0.5 BASOPHIL # (test code=BA#) 0.00 K/mm3 0.0-0.2 NUCLEATED RBC # (test code=NRBC#) 0.00 K/mm3 0.0-0.1 ABNORMAL PLATELET COUNT TO CONFIRM NOTIFY JASSON (RN) V.LAB.KA04/01/19 1350time by positive ones.COMPREHENSIVE METABOLIC [id number] 14:06:00* Test Item Value Reference Range Comments SODIUM (test code=NA) 142 mmol/L 136-145 POTASSIUM (test code=K) 4.9 mmol/L 3.5-5.1 CHLORIDE (test code=CL) 103.0 mmol/L 98-107 CARBON DIOXIDE (test code=CO2) 30.0 mmol/L 21-32 ANION GAP (test code=GAP) 13.9 10-20 GLUCOSE (test code=GLU) 192 mg/dL 74-106 BLOOD UREA NITROGEN (test code=BUN) 78 mg/dL 7-18 GLOMERULAR FILTRATION RATE (test code=GFR) 26 mL/min >=60 Estimated GFR by using Modified MDRD formula.Chronic kidney disease is defined as either kidney damageor GFR <60 mL/min/1.73 m2 for >3 months. CREATININE (test code=CREAT) 2.00 mg/dL 0.55-1.02 Note change in reference range due to change in reagent. BUN/CREATININE RATIO (test code=BUN/CREA) 39.0 10-20 TOTAL PROTEIN (test code=PROT) 5.7 gram/dL 6.4-8.2 ALBUMIN (test code=ALB) 2.1 g/dL 3.4-5.0 GLOBULIN (test code=GLOB) 3.6 gram/dL 2.7-4.2 ALBUMIN/GLOBULIN RATIO (test code=A/G) 0.6 0.75-1.50 CALCIUM (test code=CA) 8.0 mg/dL 8.5-10.1 BILIRUBIN TOTAL (test code=BILT) 0.90 mg/dL 0.0-1.0 SGOT/AST (test code=AST) 39 IUnit/L 15-37 SGPT/ALT (test code=ALT) 41 IUnit/L 12-78 ALKALINE PHOSPHATASE TOTAL (test code=ALKP) 337 IUnit/L 45-117 Note change in reference range due to change in reagent. PT REFUSED SABINE LYNCH([id number]) IS AWARE @45 [employer].LAB.JS 0849COMPREHENSIVE METABOLIC [id number] 14:00:00* Test Item Value Reference Range Comments SODIUM (test code=NA) 142 mmol/L 136-145 POTASSIUM (test code=K) 4.9 mmol/L 3.5-5.1 CHLORIDE (test code=CL) 103.0 mmol/L 98-107 CARBON DIOXIDE (test code=CO2) mmol/L 21-32 ANION GAP (test code=GAP) 10-20 GLUCOSE (test code=GLU) mg/dL 74-106 BLOOD UREA NITROGEN (test code=BUN) mg/dL 7-18 GLOMERULAR FILTRATION RATE (test code=GFR) mL/min >=60 CREATININE (test code=CREAT) mg/dL 0.55-1.02 BUN/CREATININE RATIO (test code=BUN/CREA) 10-20 TOTAL PROTEIN (test code=PROT) gram/dL 6.4-8.2 ALBUMIN (test code=ALB) g/dL 3.4-5.0 GLOBULIN (test code=GLOB) gram/dL 2.7-4.2 ALBUMIN/GLOBULIN RATIO (test code=A/G) 0.75-1.50 CALCIUM (test code=CA) mg/dL 8.5-10.1 BILIRUBIN TOTAL (test code=BILT) mg/dL 0.0-1.0 SGOT/AST (test code=AST) IUnit/L 15-37 SGPT/ALT (test code=ALT) IUnit/L 12-78 ALKALINE PHOSPHATASE TOTAL (test code=ALKP) IUnit/L 45-117 PT REFUSED SABINE LYNCH([id number]) IS AWARE @0845 [employer].LAB.JS109/ 0849- XR CHEST 1 V 2019-03-31 19:00:00 FAX: Kim Wayne MD [phone] [place]: B St: ADM FAX: Gray Luong MD Name: SIOBHAN BARBOSA [facility] : 1965 Age/S: 54/F [address] Unit #: [id number] Loc: V.[address] [place] [address] Phys: Kim Dill MD Acct: [id number] Dis Date: Status: ADM IN PHONE #: [phone] Exam Date: 03/31/2019 183 FAX #: [phone] Reason: Increased dyspnea EXAMS: CPT CODE: [id number] XR CHEST 1 V 30711 REASON FOR EXAM: Increased dyspnea Exam Order Date: 03/31/2019 12:00 AM Ordering M.D.: Kim Dill MD PROCEDURE: - XR CHEST 1 V COMPARISON: Frontal chest x-ray March 27, 2019 FINDINGS: Prominent interstitial m arkings and opacification overlying the mid to lower lungs bilaterally janey ears grossly similar when accounting for potential differences in patient positioning and technique. These findings may represent any combination of pulmonary edema, layering effusions, atelectasis, and consolidation. Cardiomediastinal silhouette is now clearly visualized. Posttraumatic deformity of the right clavicle and other musculoskeletal fi ndings are unchanged from the previous exam. The visualized upper abdomen is within normal limits. IMPRESSION: No significant change from previous radiograph. at 1900 Reported and sign ed by: Aguilar Washburn MD CC: Kim Dill MD; Gray Knott Technologist: AUSTIN CARRANZA RT(R); ... Trnscrd Date/Time/By: 03/31/2019 (1899) : By: Ramya.[email or web address] Orig Print D/ T: S: 03/31/2019 (1902) PAGE 1 Si gned Report CBC W/MANUAL [id number] 14:21:00* Test Item Value Reference Range Comments WHITE BLOOD CELL (test code=WBC) 10.1 K/mm3 4.5-12.5 RED BLOOD CELL (test code=RBC) 3.49 mill/mm3 3.7-5.2 HEMOGLOBIN (test code=HGB) 10.0 gram/dL 11.5-15.5 HEMATOCRIT (test code=HCT) 32.5 % 36.0-46.0 MEAN CELL VOLUME (test code=MCV) 93.1 fL 80-98 MEAN CELL HGB (test code=MCH) 28.7 picogram 27.0-33.0 MEAN CELL HGB CONCETRATION (test code=MCHC) 30.8 gram/dL 33.0-36.0 RED CELL DISTRIBUTION WIDTH (test code=RDW) 18.1 % 11.6-16.2 RED CELL DISTRIBUTION WIDTH SD (test code=RDW-SD) 56.8 fL 37.0-51.0 PLATELET COUNT (test code=PLT) 58 K/mm3 150-450 RESULT VERIFIED BY REPEAT ANALYSIS MEAN PLATELET VOLUME (test code=MPV) 13.0 fL 6.7-11.0 IMMATURE GRANULOCYTE % (test code=IG%) 6.8 % 0.0-5.0 "The appearance of immature granulocytes (myelocytes,pro-myelocytes, meta-myelocytes) in the peripheral blood ofnon- individuals can indicate a response toinfection, inflammation, or other stimulus to the bonemarrow" NUCLEATED RBC % (test code=NRBC%) 0.0 % 0-0 NEUTROPHIL # (test code=NT#) 8.97 K/mm3 1.8-7.7 IMMATURE GRANULOCYTE # (test code=IG#) 0.69 x10 3/uL 0-0.03 LYMPHOCYTE # (test code=LY#) 0.28 K/mm3 1.0-5.0 MONOCYTE # (test code=MO#) 0.15 K/mm3 0-0.8 EOSINOPHIL # (test code=EO#) 0.00 K/mm3 0.0-0.5 BASOPHIL # (test code=BA#) 0.02 K/mm3 0.0-0.2 NUCLEATED RBC # (test code=NRBC#) 0.00 K/mm3 0.0-0.1 MANUAL DIFF REQUIRED (test code=MDIFF) YES STAIN ACCEPTABILITY (test code=STN ACCEPTABLE) STAIN ACCEPTABLE TOTAL CELLS COUNTED (test code=TCC) 115 #CELLS SEGMENTED NEUTROPHILS (test code=SEG) 97.4 % 39-69 BAND NEUTROPHIL (test code=BAND) 0 % 0-10 LYMPHOCYTE (test code=LYMPH) 0.9 % 25-55 REACTIVE LYMPH (test code=RELYMPH) 0 % MONOCYTE (test code=MON) 1.7 % 0-10 EOSINOPHIL (test code=EOS) 0 % 0.0-5.0 BASOPHIL (test code=BASO) 0 % 0-1.0 METAMYELOCYTE (test code=META) 0 % 0-0 MYELOCYTE (test code=MYELO) 0 % 0.0-0.0 PROMYELOCYTE (test code=PROM) 0 % 0-0 ANISOCYTOSIS (test code=ANISO) 2+ MACROCYTOSIS (test code=MACR) 2+ PLATELET ESTIMATE (test code=PLTEST) DECREASED PLATELET MORPHOLOGY (test code=PLTMORPH) NORMAL IMMATURE FORMS (test code=IMMAT) 0 % 0-0 BASIC METABOLIC [id number] 11:24:00* Test Item Value Reference Range Comments SODIUM (test code=NA) 140 mmol/L 136-145 POTASSIUM (test code=K) 5.1 mmol/L 3.5-5.1 CHLORIDE (test code=CL) 102.0 mmol/L 98-107 CARBON DIOXIDE (test code=CO2) 30.0 mmol/L 21-32 ANION GAP (test code=GAP) 13.1 10-20 GLUCOSE (test code=GLU) 162 mg/dL 74-106 BLOOD UREA NITROGEN (test code=BUN) 84 mg/dL 7-18 GLOMERULAR FILTRATION RATE (test code=GFR) 26 mL/min >=60 Estimated GFR by using Modified MDRD formula.Chronic kidney disease is defined as either kidney damageor GFR <60 mL/min/1.73 m2 for >3 months. CREATININE (test code=CREAT) 2.00 mg/dL 0.55-1.02 Note change in reference range due to change in reagent. BUN/CREATININE RATIO (test code=BUN/CREA) 42.0 10-20 CALCIUM (test code=CA) 8.5 mg/dL 8.5-10.1 WANTS TO BE DRAWN AFTER BREAKFAST V.LAB.EP 03/30/19 0714BASIC METABOLIC PANEL 2019-03-30 11:19:00* Test Item Value Reference Range Comments SODIUM (test code=NA) 140 mmol/L 136-145 POTASSIUM (test code=K) 5.1 mmol/L 3.5-5.1 CHLORIDE (test code=CL) 102.0 mmol/L 98-107 CARBON DIOXIDE (test code=CO2) mmol/L 21-32 ANION GAP (test code=GAP) 10-20 GLUCOSE (test code=GLU) mg/dL 74-106 BLOOD UREA NITROGEN (test code=BUN) mg/dL 7-18 GLOMERULAR FILTRATION RATE (test code=GFR) mL/min >=60 CREATININE (test code=CREAT) mg/dL 0.55-1.02 BUN/CREATININE RATIO (test code=BUN/CREA) 10-20 CALCIUM (test code=CA) mg/dL 8.5-10.1 WANTS TO BE DRAWN AFTER BREAKFAST V.LAB.EP 03/30/19 0714CBC W/MANUAL DIFF 2019-03-30 10:57:00* Test Item Value Reference Range Comments WHITE BLOOD CELL (test code=WBC) 10.1 K/mm3 4.5-12.5 RED BLOOD CELL (test code=RBC) 3.49 mill/mm3 3.7-5.2 HEMOGLOBIN (test code=HGB) 10.0 gram/dL 11.5-15.5 HEMATOCRIT (test code=HCT) 32.5 % 36.0-46.0 MEAN CELL VOLUME (test code=MCV) 93.1 fL 80-98 MEAN CELL HGB (test code=MCH) 28.7 picogram 27.0-33.0 MEAN CELL HGB CONCETRATION (test code=MCHC) 30.8 gram/dL 33.0-36.0 RED CELL DISTRIBUTION WIDTH (test code=RDW) 18.1 % 11.6-16.2 RED CELL DISTRIBUTION WIDTH SD (test code=RDW-SD) 56.8 fL 37.0-51.0 PLATELET COUNT (test code=PLT) 58 K/mm3 150-450 RESULT VERIFIED BY REPEAT ANALYSIS MEAN PLATELET VOLUME (test code=MPV) 13.0 fL 6.7-11.0 IMMATURE GRANULOCYTE % (test code=IG%) 6.8 % 0.0-5.0 "The appearance of immature granulocytes (myelocytes,pro-myelocytes, meta-myelocytes) in the peripheral blood ofnon- individuals can indicate a response toinfection, inflammation, or other stimulus to the bonemarrow" NUCLEATED RBC % (test code=NRBC%) 0.0 % 0-0 NEUTROPHIL # (test code=NT#) 8.97 K/mm3 1.8-7.7 IMMATURE GRANULOCYTE # (test code=IG#) 0.69 x10 3/uL 0-0.03 LYMPHOCYTE # (test code=LY#) 0.28 K/mm3 1.0-5.0 MONOCYTE # (test code=MO#) 0.15 K/mm3 0-0.8 EOSINOPHIL # (test code=EO#) 0.00 K/mm3 0.0-0.5 BASOPHIL # (test code=BA#) 0.02 K/mm3 0.0-0.2 NUCLEATED RBC # (test code=NRBC#) 0.00 K/mm3 0.0-0.1 MANUAL DIFF REQUIRED (test code=MDIFF) YES STAIN ACCEPTABILITY (test code=STN ACCEPTABLE) TOTAL CELLS COUNTED (test code=TCC) #CELLS SEGMENTED NEUTROPHILS (test code=SEG) % 39-69 LYMPHOCYTE (test code=LYMPH) % 25-55 MONOCYTE (test code=MON) % 0-10 EOSINOPHIL (test code=EOS) % 0.0-5.0 CABOT RINGS (test code=CAB) MORPHOLOGY COMMENT (test code=MOC) PLATELET ESTIMATE (test code=PLTEST) PLATELET MORPHOLOGY (test code=PLTMORPH) CBC W/MANUAL [id number] 10:57:00* Test Item Value Reference Range Comments WHITE BLOOD CELL (test code=WBC) 10.1 K/mm3 4.5-12.5 RED BLOOD CELL (test code=RBC) 3.49 mill/mm3 3.7-5.2 HEMOGLOBIN (test code=HGB) 10.0 gram/dL 11.5-15.5 HEMATOCRIT (test code=HCT) 32.5 % 36.0-46.0 MEAN CELL VOLUME (test code=MCV) 93.1 fL 80-98 MEAN CELL HGB (test code=MCH) 28.7 picogram 27.0-33.0 MEAN CELL HGB CONCETRATION (test code=MCHC) 30.8 gram/dL 33.0-36.0 RED CELL DISTRIBUTION WIDTH (test code=RDW) 18.1 % 11.6-16.2 RED CELL DISTRIBUTION WIDTH SD (test code=RDW-SD) 56.8 fL 37.0-51.0 PLATELET COUNT (test code=PLT) 58 K/mm3 150-450 RESULT VERIFIED BY REPEAT ANALYSIS MEAN PLATELET VOLUME (test code=MPV) 13.0 fL 6.7-11.0 IMMATURE GRANULOCYTE % (test code=IG%) 6.8 % 0.0-5.0 "The appearance of immature granulocytes (myelocytes,pro-myelocytes, meta-myelocytes) in the peripheral blood ofnon- individuals can indicate a response toinfection, inflammation, or other stimulus to the bonemarrow" NUCLEATED RBC % (test code=NRBC%) 0.0 % 0-0 NEUTROPHIL # (test code=NT#) 8.97 K/mm3 1.8-7.7 IMMATURE GRANULOCYTE # (test code=IG#) 0.69 x10 3/uL 0-0.03 LYMPHOCYTE # (test code=LY#) 0.28 K/mm3 1.0-5.0 MONOCYTE # (test code=MO#) 0.15 K/mm3 0-0.8 EOSINOPHIL # (test code=EO#) 0.00 K/mm3 0.0-0.5 BASOPHIL # (test code=BA#) 0.02 K/mm3 0.0-0.2 NUCLEATED RBC # (test code=NRBC#) 0.00 K/mm3 0.0-0.1 MANUAL DIFF REQUIRED (test code=MDIFF) YES STAIN ACCEPTABILITY (test code=STN ACCEPTABLE) TOTAL CELLS COUNTED (test code=TCC) #CELLS SEGMENTED NEUTROPHILS (test code=SEG) % 39-69 LYMPHOCYTE (test code=LYMPH) % 25-55 MONOCYTE (test code=MON) % 0-10 EOSINOPHIL (test code=EOS) % 0.0-5.0 CABOT RINGS (test code=CAB) MORPHOLOGY COMMENT (test code=MOC) PLATELET ESTIMATE (test code=PLTEST) PLATELET MORPHOLOGY (test code=PLTMORPH) CBC W/MANUAL [id number] 10:57:00* Test Item Value Reference Range Comments WHITE BLOOD CELL (test code=WBC) 10.1 K/mm3 4.5-12.5 RED BLOOD CELL (test code=RBC) 3.49 mill/mm3 3.7-5.2 HEMOGLOBIN (test code=HGB) 10.0 gram/dL 11.5-15.5 HEMATOCRIT (test code=HCT) 32.5 % 36.0-46.0 MEAN CELL VOLUME (test code=MCV) 93.1 fL 80-98 MEAN CELL HGB (test code=MCH) 28.7 picogram 27.0-33.0 MEAN CELL HGB CONCETRATION (test code=MCHC) 30.8 gram/dL 33.0-36.0 RED CELL DISTRIBUTION WIDTH (test code=RDW) 18.1 % 11.6-16.2 RED CELL DISTRIBUTION WIDTH SD (test code=RDW-SD) 56.8 fL 37.0-51.0 PLATELET COUNT (test code=PLT) 58 K/mm3 150-450 RESULT VERIFIED BY REPEAT ANALYSIS MEAN PLATELET VOLUME (test code=MPV) 13.0 fL 6.7-11.0 IMMATURE GRANULOCYTE % (test code=IG%) 6.8 % 0.0-5.0 "The appearance of immature granulocytes (myelocytes,pro-myelocytes, meta-myelocytes) in the peripheral blood ofnon- individuals can indicate a response toinfection, inflammation, or other stimulus to the bonemarrow" NUCLEATED RBC % (test code=NRBC%) 0.0 % 0-0 NEUTROPHIL # (test code=NT#) 8.97 K/mm3 1.8-7.7 IMMATURE GRANULOCYTE # (test code=IG#) 0.69 x10 3/uL 0-0.03 LYMPHOCYTE # (test code=LY#) 0.28 K/mm3 1.0-5.0 MONOCYTE # (test code=MO#) 0.15 K/mm3 0-0.8 EOSINOPHIL # (test code=EO#) 0.00 K/mm3 0.0-0.5 BASOPHIL # (test code=BA#) 0.02 K/mm3 0.0-0.2 NUCLEATED RBC # (test code=NRBC#) 0.00 K/mm3 0.0-0.1 MANUAL DIFF REQUIRED (test code=MDIFF) YES STAIN ACCEPTABILITY (test code=STN ACCEPTABLE) TOTAL CELLS COUNTED (test code=TCC) #CELLS SEGMENTED NEUTROPHILS (test code=SEG) % 39-69 LYMPHOCYTE (test code=LYMPH) % 25-55 MONOCYTE (test code=MON) % 0-10 EOSINOPHIL (test code=EOS) % 0.0-5.0 MORPHOLOGY COMMENT (test code=MOC) PLATELET ESTIMATE (test code=PLTEST) PLATELET MORPHOLOGY (test code=PLTMORPH) CBC W/MANUAL [id number] 10:57:00* Test Item Value Reference Range Comments WHITE BLOOD CELL (test code=WBC) 10.1 K/mm3 4.5-12.5 RED BLOOD CELL (test code=RBC) 3.49 mill/mm3 3.7-5.2 HEMOGLOBIN (test code=HGB) 10.0 gram/dL 11.5-15.5 HEMATOCRIT (test code=HCT) 32.5 % 36.0-46.0 MEAN CELL VOLUME (test code=MCV) 93.1 fL 80-98 MEAN CELL HGB (test code=MCH) 28.7 picogram 27.0-33.0 MEAN CELL HGB CONCETRATION (test code=MCHC) 30.8 gram/dL 33.0-36.0 RED CELL DISTRIBUTION WIDTH (test code=RDW) 18.1 % 11.6-16.2 RED CELL DISTRIBUTION WIDTH SD (test code=RDW-SD) 56.8 fL 37.0-51.0 PLATELET COUNT (test code=PLT) 58 K/mm3 150-450 RESULT VERIFIED BY REPEAT ANALYSIS MEAN PLATELET VOLUME (test code=MPV) 13.0 fL 6.7-11.0 IMMATURE GRANULOCYTE % (test code=IG%) 6.8 % 0.0-5.0 "The appearance of immature granulocytes (myelocytes,pro-myelocytes, meta-myelocytes) in the peripheral blood ofnon- individuals can indicate a response toinfection, inflammation, or other stimulus to the bonemarrow" NUCLEATED RBC % (test code=NRBC%) 0.0 % 0-0 NEUTROPHIL # (test code=NT#) 8.97 K/mm3 1.8-7.7 IMMATURE GRANULOCYTE # (test code=IG#) 0.69 x10 3/uL 0-0.03 LYMPHOCYTE # (test code=LY#) 0.28 K/mm3 1.0-5.0 MONOCYTE # (test code=MO#) 0.15 K/mm3 0-0.8 EOSINOPHIL # (test code=EO#) 0.00 K/mm3 0.0-0.5 BASOPHIL # (test code=BA#) 0.02 K/mm3 0.0-0.2 NUCLEATED RBC # (test code=NRBC#) 0.00 K/mm3 0.0-0.1 MANUAL DIFF REQUIRED (test code=MDIFF) YES STAIN ACCEPTABILITY (test code=STN ACCEPTABLE) TOTAL CELLS COUNTED (test code=TCC) #CELLS SEGMENTED NEUTROPHILS (test code=SEG) % 39-69 LYMPHOCYTE (test code=LYMPH) % 25-55 MONOCYTE (test code=MON) % 0-10 MORPHOLOGY COMMENT (test code=MOC) PLATELET ESTIMATE (test code=PLTEST) PLATELET MORPHOLOGY (test code=PLTMORPH) CBC W/MANUAL [id number] 10:57:00* Test Item Value Reference Range Comments WHITE BLOOD CELL (test code=WBC) 10.1 K/mm3 4.5-12.5 RED BLOOD CELL (test code=RBC) 3.49 mill/mm3 3.7-5.2 HEMOGLOBIN (test code=HGB) 10.0 gram/dL 11.5-15.5 HEMATOCRIT (test code=HCT) 32.5 % 36.0-46.0 MEAN CELL VOLUME (test code=MCV) 93.1 fL 80-98 MEAN CELL HGB (test code=MCH) 28.7 picogram 27.0-33.0 MEAN CELL HGB CONCETRATION (test code=MCHC) 30.8 gram/dL 33.0-36.0 RED CELL DISTRIBUTION WIDTH (test code=RDW) 18.1 % 11.6-16.2 RED CELL DISTRIBUTION WIDTH SD (test code=RDW-SD) 56.8 fL 37.0-51.0 PLATELET COUNT (test code=PLT) 58 K/mm3 150-450 RESULT VERIFIED BY REPEAT ANALYSIS MEAN PLATELET VOLUME (test code=MPV) 13.0 fL 6.7-11.0 IMMATURE GRANULOCYTE % (test code=IG%) 6.8 % 0.0-5.0 "The appearance of immature granulocytes (myelocytes,pro-myelocytes, meta-myelocytes) in the peripheral blood ofnon- individuals can indicate a response toinfection, inflammation, or other stimulus to the bonemarrow" NUCLEATED RBC % (test code=NRBC%) 0.0 % 0-0 NEUTROPHIL # (test code=NT#) 8.97 K/mm3 1.8-7.7 IMMATURE GRANULOCYTE # (test code=IG#) 0.69 x10 3/uL 0-0.03 LYMPHOCYTE # (test code=LY#) 0.28 K/mm3 1.0-5.0 MONOCYTE # (test code=MO#) 0.15 K/mm3 0-0.8 EOSINOPHIL # (test code=EO#) 0.00 K/mm3 0.0-0.5 BASOPHIL # (test code=BA#) 0.02 K/mm3 0.0-0.2 NUCLEATED RBC # (test code=NRBC#) 0.00 K/mm3 0.0-0.1 MANUAL DIFF REQUIRED (test code=MDIFF) YES STAIN ACCEPTABILITY (test code=STN ACCEPTABLE) TOTAL CELLS COUNTED (test code=TCC) #CELLS SEGMENTED NEUTROPHILS (test code=SEG) % 39-69 LYMPHOCYTE (test code=LYMPH) % 25-55 MONOCYTE (test code=MON) % 0-10 EOSINOPHIL (test code=EOS) % 0.0-5.0 CABOT RINGS (test code=CAB) MORPHOLOGY COMMENT (test code=MOC) PLATELET ESTIMATE (test code=PLTEST) PLATELET MORPHOLOGY (test code=PLTMORPH) CBC W/MANUAL [id number] 13:23:00* Test Item Value Reference Range Comments WHITE BLOOD CELL (test code=WBC) 6.9 K/mm3 4.5-12.5 RED BLOOD CELL (test code=RBC) 3.16 mill/mm3 3.7-5.2 HEMOGLOBIN (test code=HGB) 9.2 gram/dL 11.5-15.5 HEMATOCRIT (test code=HCT) 30.0 % 36.0-46.0 MEAN CELL VOLUME (test code=MCV) 94.9 fL 80-98 MEAN CELL HGB (test code=MCH) 29.1 picogram 27.0-33.0 MEAN CELL HGB CONCETRATION (test code=MCHC) 30.7 gram/dL 33.0-36.0 RED CELL DISTRIBUTION WIDTH (test code=RDW) 18.0 % 11.6-16.2 RED CELL DISTRIBUTION WIDTH SD (test code=RDW-SD) 58.4 fL 37.0-51.0 PLATELET COUNT (test code=PLT) 40 K/mm3 150-450 Results called to [id number] by MARIUM 03/29/19 1220Critical results verified and read back by Nurse? Y MEAN PLATELET VOLUME (test code=MPV) 12.8 fL 6.7-11.0 IMMATURE GRANULOCYTE % (test code=IG%) 7.4 % 0.0-5.0 "The appearance of immature granulocytes (myelocytes,pro-myelocytes, meta-myelocytes) in the peripheral blood ofnon- individuals can indicate a response toinfection, inflammation, or other stimulus to the bonemarrow" NUCLEATED RBC % (test code=NRBC%) 0.0 % 0-0 NEUTROPHIL # (test code=NT#) 6.03 K/mm3 1.8-7.7 IMMATURE GRANULOCYTE # (test code=IG#) 0.51 x10 3/uL 0-0.03 LYMPHOCYTE # (test code=LY#) 0.16 K/mm3 1.0-5.0 MONOCYTE # (test code=MO#) 0.16 K/mm3 0-0.8 EOSINOPHIL # (test code=EO#) 0.00 K/mm3 0.0-0.5 BASOPHIL # (test code=BA#) 0.01 K/mm3 0.0-0.2 NUCLEATED RBC # (test code=NRBC#) 0.00 K/mm3 0.0-0.1 MANUAL DIFF REQUIRED (test code=MDIFF) YES STAIN ACCEPTABILITY (test code=STN ACCEPTABLE) STAIN ACCEPTABLE TOTAL CELLS COUNTED (test code=TCC) 115 #CELLS SEGMENTED NEUTROPHILS (test code=SEG) 89.5 % 39-69 BAND NEUTROPHIL (test code=BAND) 3.5 % 0-10 LYMPHOCYTE (test code=LYMPH) 3.5 % 25-55 REACTIVE LYMPH (test code=RELYMPH) 0.9 % MONOCYTE (test code=MON) 2.6 % 0-10 EOSINOPHIL (test code=EOS) 0 % 0.0-5.0 BASOPHIL (test code=BASO) 0 % 0-1.0 METAMYELOCYTE (test code=META) 0 % 0-0 MYELOCYTE (test code=MYELO) 0 % 0.0-0.0 PROMYELOCYTE (test code=PROM) 0 % 0-0 ANISOCYTOSIS (test code=ANISO) 2+ MACROCYTOSIS (test code=MACR) 2+ PLATELET ESTIMATE (test code=PLTEST) DECREASED PLATELET MORPHOLOGY (test code=PLTMORPH) NORMAL IMMATURE FORMS (test code=IMMAT) 0 % 0-0 REFUSAL, SABINE FRIED ([id number]) IS AWARE V.LAB.[facility] [id number] METABOLIC PANEL 2019-03-29 12:48:00* Test Item Value Reference Range Comments SODIUM (test code=NA) 142 mmol/L 136-145 RESULT VERIFIED BY REPEAT ANALYSIS POTASSIUM (test code=K) 4.5 mmol/L 3.5-5.1 CHLORIDE (test code=CL) 105.0 mmol/L 98-107 CARBON DIOXIDE (test code=CO2) 29.0 mmol/L 21-32 ANION GAP (test code=GAP) 12.5 10-20 GLUCOSE (test code=GLU) 200 mg/dL 74-106 BLOOD UREA NITROGEN (test code=BUN) 84 mg/dL 7-18 GLOMERULAR FILTRATION RATE (test code=GFR) 23 mL/min >=60 Estimated GFR by using Modified MDRD formula.Chronic kidney disease is defined as either kidney damageor GFR <60 mL/min/1.73 m2 for >3 months. CREATININE (test code=CREAT) 2.20 mg/dL 0.55-1.02 Note change in reference range due to change in reagent. BUN/CREATININE RATIO (test code=BUN/CREA) 38.2 10-20 CALCIUM (test code=CA) 8.0 mg/dL 8.5-10.1 PT REFUSED LABS NOTIFIED NURSE V.LAB.AL 03/29/19 1007 REFUSAL, SABINE FRIED ([id number] ) IS AWARE V.LAB.[facility] [id number] W/MANUAL [id number] 12:20:00* Test Item Value Reference Range Comments WHITE BLOOD CELL (test code=WBC) 6.9 K/mm3 4.5-12.5 RED BLOOD CELL (test code=RBC) 3.16 mill/mm3 3.7-5.2 HEMOGLOBIN (test code=HGB) 9.2 gram/dL 11.5-15.5 HEMATOCRIT (test code=HCT) 30.0 % 36.0-46.0 MEAN CELL VOLUME (test code=MCV) 94.9 fL 80-98 MEAN CELL HGB (test code=MCH) 29.1 picogram 27.0-33.0 MEAN CELL HGB CONCETRATION (test code=MCHC) 30.7 gram/dL 33.0-36.0 RED CELL DISTRIBUTION WIDTH (test code=RDW) 18.0 % 11.6-16.2 RED CELL DISTRIBUTION WIDTH SD (test code=RDW-SD) 58.4 fL 37.0-51.0 PLATELET COUNT (test code=PLT) 40 K/mm3 150-450 Results called to [id number] by MARIUM 03/29/19 1220Critical results verified and read back by Nurse? Y MEAN PLATELET VOLUME (test code=MPV) 12.8 fL 6.7-11.0 IMMATURE GRANULOCYTE % (test code=IG%) 7.4 % 0.0-5.0 "The appearance of immature granulocytes (myelocytes,pro-myelocytes, meta-myelocytes) in the peripheral blood ofnon- individuals can indicate a response toinfection, inflammation, or other stimulus to the bonemarrow" NUCLEATED RBC % (test code=NRBC%) 0.0 % 0-0 NEUTROPHIL # (test code=NT#) 6.03 K/mm3 1.8-7.7 IMMATURE GRANULOCYTE # (test code=IG#) 0.51 x10 3/uL 0-0.03 LYMPHOCYTE # (test code=LY#) 0.16 K/mm3 1.0-5.0 MONOCYTE # (test code=MO#) 0.16 K/mm3 0-0.8 EOSINOPHIL # (test code=EO#) 0.00 K/mm3 0.0-0.5 BASOPHIL # (test code=BA#) 0.01 K/mm3 0.0-0.2 NUCLEATED RBC # (test code=NRBC#) 0.00 K/mm3 0.0-0.1 MANUAL DIFF REQUIRED (test code=MDIFF) YES STAIN ACCEPTABILITY (test code=STN ACCEPTABLE) TOTAL CELLS COUNTED (test code=TCC) #CELLS SEGMENTED NEUTROPHILS (test code=SEG) % 39-69 LYMPHOCYTE (test code=LYMPH) % 25-55 MONOCYTE (test code=MON) % 0-10 EOSINOPHIL (test code=EOS) % 0.0-5.0 CABOT RINGS (test code=CAB) MORPHOLOGY COMMENT (test code=MOC) PLATELET ESTIMATE (test code=PLTEST) PLATELET MORPHOLOGY (test code=PLTMORPH) REFUSAL, RN CORKY ([id number]) IS AWARE V.LAB.CS1 [id number] W/MANUAL DIFF 2019-03-29 12:20:00* Test Item Value Reference Range Comments WHITE BLOOD CELL (test code=WBC) 6.9 K/mm3 4.5-12.5 RED BLOOD CELL (test code=RBC) 3.16 mill/mm3 3.7-5.2 HEMOGLOBIN (test code=HGB) 9.2 gram/dL 11.5-15.5 HEMATOCRIT (test code=HCT) 30.0 % 36.0-46.0 MEAN CELL VOLUME (test code=MCV) 94.9 fL 80-98 MEAN CELL HGB (test code=MCH) 29.1 picogram 27.0-33.0 MEAN CELL HGB CONCETRATION (test code=MCHC) 30.7 gram/dL 33.0-36.0 RED CELL DISTRIBUTION WIDTH (test code=RDW) 18.0 % 11.6-16.2 RED CELL DISTRIBUTION WIDTH SD (test code=RDW-SD) 58.4 fL 37.0-51.0 PLATELET COUNT (test code=PLT) 40 K/mm3 150-450 Results called to [id number] by V.LAB.JQ 03/29/19 1220Critical results verified and read back by Nurse? Y MEAN PLATELET VOLUME (test code=MPV) 12.8 fL 6.7-11.0 IMMATURE GRANULOCYTE % (test code=IG%) 7.4 % 0.0-5.0 "The appearance of immature granulocytes (myelocytes,pro-myelocytes, meta-myelocytes) in the peripheral blood ofnon- individuals can indicate a response toinfection, inflammation, or other stimulus to the bonemarrow" NUCLEATED RBC % (test code=NRBC%) 0.0 % 0-0 NEUTROPHIL # (test code=NT#) 6.03 K/mm3 1.8-7.7 IMMATURE GRANULOCYTE # (test code=IG#) 0.51 x10 3/uL 0-0.03 LYMPHOCYTE # (test code=LY#) 0.16 K/mm3 1.0-5.0 MONOCYTE # (test code=MO#) 0.16 K/mm3 0-0.8 EOSINOPHIL # (test code=EO#) 0.00 K/mm3 0.0-0.5 BASOPHIL # (test code=BA#) 0.01 K/mm3 0.0-0.2 NUCLEATED RBC # (test code=NRBC#) 0.00 K/mm3 0.0-0.1 MANUAL DIFF REQUIRED (test code=MDIFF) YES STAIN ACCEPTABILITY (test code=STN ACCEPTABLE) TOTAL CELLS COUNTED (test code=TCC) #CELLS SEGMENTED NEUTROPHILS (test code=SEG) % 39-69 LYMPHOCYTE (test code=LYMPH) % 25-55 MONOCYTE (test code=MON) % 0-10 EOSINOPHIL (test code=EOS) % 0.0-5.0 CABOT RINGS (test code=CAB) MORPHOLOGY COMMENT (test code=MOC) PLATELET ESTIMATE (test code=PLTEST) PLATELET MORPHOLOGY (test code=PLTMORPH) REFUSAL, SABINE FRIED ([id number]) IS AWARE V.LAB.CS1 03/29/[id number] W/MANUAL DIFF 2019-03-29 12:20:00* Test Item Value Reference Range Comments WHITE BLOOD CELL (test code=WBC) 6.9 K/mm3 4.5-12.5 RED BLOOD CELL (test code=RBC) 3.16 mill/mm3 3.7-5.2 HEMOGLOBIN (test code=HGB) 9.2 gram/dL 11.5-15.5 HEMATOCRIT (test code=HCT) 30.0 % 36.0-46.0 MEAN CELL VOLUME (test code=MCV) 94.9 fL 80-98 MEAN CELL HGB (test code=MCH) 29.1 picogram 27.0-33.0 MEAN CELL HGB CONCETRATION (test code=MCHC) 30.7 gram/dL 33.0-36.0 RED CELL DISTRIBUTION WIDTH (test code=RDW) 18.0 % 11.6-16.2 RED CELL DISTRIBUTION WIDTH SD (test code=RDW-SD) 58.4 fL 37.0-51.0 PLATELET COUNT (test code=PLT) 40 K/mm3 150-450 Results called to [id number] by V.LAB.JQ 03/29/19 1220Critical results verified and read back by Nurse? Y MEAN PLATELET VOLUME (test code=MPV) 12.8 fL 6.7-11.0 IMMATURE GRANULOCYTE % (test code=IG%) 7.4 % 0.0-5.0 "The appearance of immature granulocytes (myelocytes,pro-myelocytes, meta-myelocytes) in the peripheral blood ofnon- individuals can indicate a response toinfection, inflammation, or other stimulus to the bonemarrow" NUCLEATED RBC % (test code=NRBC%) 0.0 % 0-0 NEUTROPHIL # (test code=NT#) 6.03 K/mm3 1.8-7.7 IMMATURE GRANULOCYTE # (test code=IG#) 0.51 x10 3/uL 0-0.03 LYMPHOCYTE # (test code=LY#) 0.16 K/mm3 1.0-5.0 MONOCYTE # (test code=MO#) 0.16 K/mm3 0-0.8 EOSINOPHIL # (test code=EO#) 0.00 K/mm3 0.0-0.5 BASOPHIL # (test code=BA#) 0.01 K/mm3 0.0-0.2 NUCLEATED RBC # (test code=NRBC#) 0.00 K/mm3 0.0-0.1 MANUAL DIFF REQUIRED (test code=MDIFF) YES STAIN ACCEPTABILITY (test code=STN ACCEPTABLE) TOTAL CELLS COUNTED (test code=TCC) #CELLS SEGMENTED NEUTROPHILS (test code=SEG) % 39-69 LYMPHOCYTE (test code=LYMPH) % 25-55 MONOCYTE (test code=MON) % 0-10 EOSINOPHIL (test code=EOS) % 0.0-5.0 MORPHOLOGY COMMENT (test code=MOC) PLATELET ESTIMATE (test code=PLTEST) PLATELET MORPHOLOGY (test code=PLTMORPH) REFUSAL, SABINE FRIED ([id number]) IS AWARE V.LAB.[facility] 03/29/[id number] W/MANUAL DIFF 2019-03-29 12:20:00* Test Item Value Reference Range Comments WHITE BLOOD CELL (test code=WBC) 6.9 K/mm3 4.5-12.5 RED BLOOD CELL (test code=RBC) 3.16 mill/mm3 3.7-5.2 HEMOGLOBIN (test code=HGB) 9.2 gram/dL 11.5-15.5 HEMATOCRIT (test code=HCT) 30.0 % 36.0-46.0 MEAN CELL VOLUME (test code=MCV) 94.9 fL 80-98 MEAN CELL HGB (test code=MCH) 29.1 picogram 27.0-33.0 MEAN CELL HGB CONCETRATION (test code=MCHC) 30.7 gram/dL 33.0-36.0 RED CELL DISTRIBUTION WIDTH (test code=RDW) 18.0 % 11.6-16.2 RED CELL DISTRIBUTION WIDTH SD (test code=RDW-SD) 58.4 fL 37.0-51.0 PLATELET COUNT (test code=PLT) 40 K/mm3 150-450 Results called to [id number] by AmwareLABWilliamsJQ 03/29/19 1220Critical results verified and read back by Nurse? Y MEAN PLATELET VOLUME (test code=MPV) 12.8 fL 6.7-11.0 IMMATURE GRANULOCYTE % (test code=IG%) 7.4 % 0.0-5.0 "The appearance of immature granulocytes (myelocytes,pro-myelocytes, meta-myelocytes) in the peripheral blood ofnon- individuals can indicate a response toinfection, inflammation, or other stimulus to the bonemarrow" NUCLEATED RBC % (test code=NRBC%) 0.0 % 0-0 NEUTROPHIL # (test code=NT#) 6.03 K/mm3 1.8-7.7 IMMATURE GRANULOCYTE # (test code=IG#) 0.51 x10 3/uL 0-0.03 LYMPHOCYTE # (test code=LY#) 0.16 K/mm3 1.0-5.0 MONOCYTE # (test code=MO#) 0.16 K/mm3 0-0.8 EOSINOPHIL # (test code=EO#) 0.00 K/mm3 0.0-0.5 BASOPHIL # (test code=BA#) 0.01 K/mm3 0.0-0.2 NUCLEATED RBC # (test code=NRBC#) 0.00 K/mm3 0.0-0.1 MANUAL DIFF REQUIRED (test code=MDIFF) YES STAIN ACCEPTABILITY (test code=STN ACCEPTABLE) TOTAL CELLS COUNTED (test code=TCC) #CELLS SEGMENTED NEUTROPHILS (test code=SEG) % 39-69 LYMPHOCYTE (test code=LYMPH) % 25-55 MONOCYTE (test code=MON) % 0-10 MORPHOLOGY COMMENT (test code=MOC) PLATELET ESTIMATE (test code=PLTEST) PLATELET MORPHOLOGY (test code=PLTMORPH) REFUSAL, SABINE FRIED ([id number]) IS AWARE V.LAB.CS1 [id number] W/MANUAL DIFF 2019-03-29 12:20:00* Test Item Value Reference Range Comments WHITE BLOOD CELL (test code=WBC) 6.9 K/mm3 4.5-12.5 RED BLOOD CELL (test code=RBC) 3.16 mill/mm3 3.7-5.2 HEMOGLOBIN (test code=HGB) 9.2 gram/dL 11.5-15.5 HEMATOCRIT (test code=HCT) 30.0 % 36.0-46.0 MEAN CELL VOLUME (test code=MCV) 94.9 fL 80-98 MEAN CELL HGB (test code=MCH) 29.1 picogram 27.0-33.0 MEAN CELL HGB CONCETRATION (test code=MCHC) 30.7 gram/dL 33.0-36.0 RED CELL DISTRIBUTION WIDTH (test code=RDW) 18.0 % 11.6-16.2 RED CELL DISTRIBUTION WIDTH SD (test code=RDW-SD) 58.4 fL 37.0-51.0 PLATELET COUNT (test code=PLT) 40 K/mm3 150-450 Results called to [id number] by AmwareLAB.JQ 03/29/19 1220Critical results verified and read back by Nurse? Y MEAN PLATELET VOLUME (test code=MPV) 12.8 fL 6.7-11.0 IMMATURE GRANULOCYTE % (test code=IG%) 7.4 % 0.0-5.0 "The appearance of immature granulocytes (myelocytes,pro-myelocytes, meta-myelocytes) in the peripheral blood ofnon- individuals can indicate a response toinfection, inflammation, or other stimulus to the bonemarrow" NUCLEATED RBC % (test code=NRBC%) 0.0 % 0-0 NEUTROPHIL # (test code=NT#) 6.03 K/mm3 1.8-7.7 IMMATURE GRANULOCYTE # (test code=IG#) 0.51 x10 3/uL 0-0.03 LYMPHOCYTE # (test code=LY#) 0.16 K/mm3 1.0-5.0 MONOCYTE # (test code=MO#) 0.16 K/mm3 0-0.8 EOSINOPHIL # (test code=EO#) 0.00 K/mm3 0.0-0.5 BASOPHIL # (test code=BA#) 0.01 K/mm3 0.0-0.2 NUCLEATED RBC # (test code=NRBC#) 0.00 K/mm3 0.0-0.1 MANUAL DIFF REQUIRED (test code=MDIFF) YES STAIN ACCEPTABILITY (test code=STN ACCEPTABLE) TOTAL CELLS COUNTED (test code=TCC) #CELLS SEGMENTED NEUTROPHILS (test code=SEG) % 39-69 LYMPHOCYTE (test code=LYMPH) % 25-55 MONOCYTE (test code=MON) % 0-10 EOSINOPHIL (test code=EOS) % 0.0-5.0 CABOT RINGS (test code=CAB) MORPHOLOGY COMMENT (test code=MOC) PLATELET ESTIMATE (test code=PLTEST) PLATELET MORPHOLOGY (test code=PLTMORPH) REFUSAL, SABINE FRIED ([id number]) IS AWARE V.LAB.1 [id number] BLOOD GAS 2019-03-28 15:59:00* Test Item Value Reference Range Comments ARTERIAL BLOOD GAS PH (test code=PHA) 7.14 7.35-7.45 Results called to and read back by DR. Rausch 12: - 03/27/2019; by ISAAC ARTERIAL BLOOD GAS PCO2 (test code=PCO2A) 63.5 mm Hg 35-45 ARTERIAL BLOOD GAS PO2 (test code=PO2A) 97.4 mmHg 80-100 BICARBONATE TOTAL HCO3 (test code=HCO3) 20.9 mmol/L 23.0-27.0 BASE EXCESS (test code=TERRENCE) -8.8 mmol/L -3.0-5.0 Results called to and read back by DR. Rausch 12: - 03/27/2019; by ISAAC ABG O2 SATURATION (test code=SATA) 95.4 % 90.0-98.0 ABG TYPE (test code=TYPEA) Arterial FIO2 (test code=FIO2A) 100.0 ABG SITE (test code=SITEA) Rt RADIAL ARTERY MODIFIED ALLENS (test code=MODALL) Yes CHECK PERFORMED HEMATOCRIT (test code=HCT/ABG) 37 % 35-47 TOTAL HGB (test code=THB) 12.5 gram/dL 11.5-15.5 HGB O2 SAT (test code=HBOSAT) 94.9 % 94.00-98.00 CARBOXYHEMOGLOBIN (test code=HOHGBT) 0.2 %totalHg 0.5-1.5 Results called to and read back by DR. Rausch 12:12 - 03/27/2019; by ISAAC METHEMOGLOBIN (test code=METHGB) 0.3 % 0.0-1.50 O2 CONTENT (test code=O2CT) 16.8 % vol 18.0-22.0 BASIC METABOLIC [id number] 13:48:00* Test Item Value Reference Range Comments SODIUM (test code=NA) 147 mmol/L 136-145 POTASSIUM (test code=K) 4.9 mmol/L 3.5-5.1 CHLORIDE (test code=CL) 110.0 mmol/L 98-107 CARBON DIOXIDE (test code=CO2) 29.0 mmol/L 21-32 ANION GAP (test code=GAP) 12.9 10-20 GLUCOSE (test code=GLU) 186 mg/dL 74-106 BLOOD UREA NITROGEN (test code=BUN) 85 mg/dL 7-18 GLOMERULAR FILTRATION RATE (test code=GFR) 20 mL/min >=60 Estimated GFR by using Modified MDRD formula.Chronic kidney disease is defined as either kidney damageor GFR <60 mL/min/1.73 m2 for >3 months. CREATININE (test code=CREAT) 2.50 mg/dL 0.55-1.02 Note change in reference range due to change in reagent. BUN/CREATININE RATIO (test code=BUN/CREA) 34.3 10-20 CALCIUM (test code=CA) 8.0 mg/dL 8.5-10.1 RP1 03/28/19 1034CBC W/MANUAL [id number] 13:46:00* Test Item Value Reference Range Comments WHITE BLOOD CELL (test code=WBC) 6.0 K/mm3 4.5-12.5 RED BLOOD CELL (test code=RBC) 3.05 mill/mm3 3.7-5.2 HEMOGLOBIN (test code=HGB) 8.8 gram/dL 11.5-15.5 HEMATOCRIT (test code=HCT) 28.8 % 36.0-46.0 MEAN CELL VOLUME (test code=MCV) 94.4 fL 80-98 MEAN CELL HGB (test code=MCH) 28.9 picogram 27.0-33.0 MEAN CELL HGB CONCETRATION (test code=MCHC) 30.6 gram/dL 33.0-36.0 RED CELL DISTRIBUTION WIDTH (test code=RDW) 18.2 % 11.6-16.2 RED CELL DISTRIBUTION WIDTH SD (test code=RDW-SD) 60.3 fL 37.0-51.0 PLATELET COUNT (test code=PLT) 42 K/mm3 150-450 Results called to SUZETTE by MYAH 03/28/19 1338Critical results verified and read back by Nurse? Y MEAN PLATELET VOLUME (test code=MPV) 11.7 fL 6.7-11.0 IMMATURE GRANULOCYTE % (test code=IG%) 9.4 % 0.0-5.0 "The appearance of immature granulocytes (myelocytes,pro-myelocytes, meta-myelocytes) in the peripheral blood ofnon- individuals can indicate a response toinfection, inflammation, or other stimulus to the bonemarrow" NUCLEATED RBC % (test code=NRBC%) 0.5 % 0-0 NEUTROPHIL # (test code=NT#) 5.07 K/mm3 1.8-7.7 IMMATURE GRANULOCYTE # (test code=IG#) 0.56 x10 3/uL 0-0.03 LYMPHOCYTE # (test code=LY#) 0.19 K/mm3 1.0-5.0 MONOCYTE # (test code=MO#) 0.13 K/mm3 0-0.8 EOSINOPHIL # (test code=EO#) 0.00 K/mm3 0.0-0.5 BASOPHIL # (test code=BA#) 0.01 K/mm3 0.0-0.2 NUCLEATED RBC # (test code=NRBC#) 0.03 K/mm3 0.0-0.1 MANUAL DIFF REQUIRED (test code=MDIFF) YES STAIN ACCEPTABILITY (test code=STN ACCEPTABLE) STAIN ACCEPTABLE TOTAL CELLS COUNTED (test code=TCC) 115 #CELLS SEGMENTED NEUTROPHILS (test code=SEG) 94.8 % 39-69 BAND NEUTROPHIL (test code=BAND) 2.6 % 0-10 LYMPHOCYTE (test code=LYMPH) 1.7 % 25-55 REACTIVE LYMPH (test code=RELYMPH) 0 % MONOCYTE (test code=MON) 0.9 % 0-10 EOSINOPHIL (test code=EOS) 0 % 0.0-5.0 BASOPHIL (test code=BASO) 0 % 0-1.0 METAMYELOCYTE (test code=META) 0 % 0-0 MYELOCYTE (test code=MYELO) 0 % 0.0-0.0 PROMYELOCYTE (test code=PROM) 0 % 0-0 ANISOCYTOSIS (test code=ANISO) 1+ MACROCYTOSIS (test code=MACR) 1+ PLATELET ESTIMATE (test code=PLTEST) DECREASED PLATELET MORPHOLOGY (test code=PLTMORPH) NORMAL IMMATURE FORMS (test code=IMMAT) 0 % 0-0 PT IS HS, RN SUZETTE GOODWIN ON NURSES 3-4 ID V.LAB. 1034CBC W/MANUAL [id number] 13:39:00* Test Item Value Reference Range Comments WHITE BLOOD CELL (test code=WBC) 6.0 K/mm3 4.5-12.5 RED BLOOD CELL (test code=RBC) 3.05 mill/mm3 3.7-5.2 HEMOGLOBIN (test code=HGB) 8.8 gram/dL 11.5-15.5 HEMATOCRIT (test code=HCT) 28.8 % 36.0-46.0 MEAN CELL VOLUME (test code=MCV) 94.4 fL 80-98 MEAN CELL HGB (test code=MCH) 28.9 picogram 27.0-33.0 MEAN CELL HGB CONCETRATION (test code=MCHC) 30.6 gram/dL 33.0-36.0 RED CELL DISTRIBUTION WIDTH (test code=RDW) 18.2 % 11.6-16.2 RED CELL DISTRIBUTION WIDTH SD (test code=RDW-SD) 60.3 fL 37.0-51.0 PLATELET COUNT (test code=PLT) 42 K/mm3 150-450 Results called to SUZETTE by MADELAINE 03/28/19 1338Critical results verified and read back by Nurse? Y MEAN PLATELET VOLUME (test code=MPV) 11.7 fL 6.7-11.0 IMMATURE GRANULOCYTE % (test code=IG%) 9.4 % 0.0-5.0 "The appearance of immature granulocytes (myelocytes,pro-myelocytes, meta-myelocytes) in the peripheral blood ofnon- individuals can indicate a response toinfection, inflammation, or other stimulus to the bonemarrow" NUCLEATED RBC % (test code=NRBC%) 0.5 % 0-0 NEUTROPHIL # (test code=NT#) 5.07 K/mm3 1.8-7.7 IMMATURE GRANULOCYTE # (test code=IG#) 0.56 x10 3/uL 0-0.03 LYMPHOCYTE # (test code=LY#) 0.19 K/mm3 1.0-5.0 MONOCYTE # (test code=MO#) 0.13 K/mm3 0-0.8 EOSINOPHIL # (test code=EO#) 0.00 K/mm3 0.0-0.5 BASOPHIL # (test code=BA#) 0.01 K/mm3 0.0-0.2 NUCLEATED RBC # (test code=NRBC#) 0.03 K/mm3 0.0-0.1 MANUAL DIFF REQUIRED (test code=MDIFF) YES STAIN ACCEPTABILITY (test code=STN ACCEPTABLE) TOTAL CELLS COUNTED (test code=TCC) #CELLS SEGMENTED NEUTROPHILS (test code=SEG) % 39-69 LYMPHOCYTE (test code=LYMPH) % 25-55 MONOCYTE (test code=MON) % 0-10 EOSINOPHIL (test code=EOS) % 0.0-5.0 CABOT RINGS (test code=CAB) MORPHOLOGY COMMENT (test code=MOC) PLATELET ESTIMATE (test code=PLTEST) PLATELET MORPHOLOGY (test code=PLTMORPH) PT IS HS, RN SUZETTE GOODWIN ON NURSES 3-4 ID V.LAB.RP109/05/06 1034CBC W/MANUAL [id number] 13:39:00* Test Item Value Reference Range Comments WHITE BLOOD CELL (test code=WBC) 6.0 K/mm3 4.5-12.5 RED BLOOD CELL (test code=RBC) 3.05 mill/mm3 3.7-5.2 HEMOGLOBIN (test code=HGB) 8.8 gram/dL 11.5-15.5 HEMATOCRIT (test code=HCT) 28.8 % 36.0-46.0 MEAN CELL VOLUME (test code=MCV) 94.4 fL 80-98 MEAN CELL HGB (test code=MCH) 28.9 picogram 27.0-33.0 MEAN CELL HGB CONCETRATION (test code=MCHC) 30.6 gram/dL 33.0-36.0 RED CELL DISTRIBUTION WIDTH (test code=RDW) 18.2 % 11.6-16.2 RED CELL DISTRIBUTION WIDTH SD (test code=RDW-SD) 60.3 fL 37.0-51.0 PLATELET COUNT (test code=PLT) 42 K/mm3 150-450 Results called to SUZETTE by MYAH 03/28/19 1338Critical results verified and read back by Nurse? Y MEAN PLATELET VOLUME (test code=MPV) 11.7 fL 6.7-11.0 IMMATURE GRANULOCYTE % (test code=IG%) 9.4 % 0.0-5.0 "The appearance of immature granulocytes (myelocytes,pro-myelocytes, meta-myelocytes) in the peripheral blood ofnon- individuals can indicate a response toinfection, inflammation, or other stimulus to the bonemarrow" NUCLEATED RBC % (test code=NRBC%) 0.5 % 0-0 NEUTROPHIL # (test code=NT#) 5.07 K/mm3 1.8-7.7 IMMATURE GRANULOCYTE # (test code=IG#) 0.56 x10 3/uL 0-0.03 LYMPHOCYTE # (test code=LY#) 0.19 K/mm3 1.0-5.0 MONOCYTE # (test code=MO#) 0.13 K/mm3 0-0.8 EOSINOPHIL # (test code=EO#) 0.00 K/mm3 0.0-0.5 BASOPHIL # (test code=BA#) 0.01 K/mm3 0.0-0.2 NUCLEATED RBC # (test code=NRBC#) 0.03 K/mm3 0.0-0.1 MANUAL DIFF REQUIRED (test code=MDIFF) YES STAIN ACCEPTABILITY (test code=STN ACCEPTABLE) TOTAL CELLS COUNTED (test code=TCC) #CELLS SEGMENTED NEUTROPHILS (test code=SEG) % 39-69 LYMPHOCYTE (test code=LYMPH) % 25-55 MONOCYTE (test code=MON) % 0-10 EOSINOPHIL (test code=EOS) % 0.0-5.0 CABOT RINGS (test code=CAB) MORPHOLOGY COMMENT (test code=MOC) PLATELET ESTIMATE (test code=PLTEST) PLATELET MORPHOLOGY (test code=PLTMORPH) PT IS HS, SABINE GOODWIN ON NURSES 3-4 ID V.LAB.RP 1034CBC W/MANUAL [id number] 13:39:00* Test Item Value Reference Range Comments WHITE BLOOD CELL (test code=WBC) 6.0 K/mm3 4.5-12.5 RED BLOOD CELL (test code=RBC) 3.05 mill/mm3 3.7-5.2 HEMOGLOBIN (test code=HGB) 8.8 gram/dL 11.5-15.5 HEMATOCRIT (test code=HCT) 28.8 % 36.0-46.0 MEAN CELL VOLUME (test code=MCV) 94.4 fL 80-98 MEAN CELL HGB (test code=MCH) 28.9 picogram 27.0-33.0 MEAN CELL HGB CONCETRATION (test code=MCHC) 30.6 gram/dL 33.0-36.0 RED CELL DISTRIBUTION WIDTH (test code=RDW) 18.2 % 11.6-16.2 RED CELL DISTRIBUTION WIDTH SD (test code=RDW-SD) 60.3 fL 37.0-51.0 PLATELET COUNT (test code=PLT) 42 K/mm3 150-450 Results called to SUZETTE by MYAH 03/28/19 1338Critical results verified and read back by Nurse? Y MEAN PLATELET VOLUME (test code=MPV) 11.7 fL 6.7-11.0 IMMATURE GRANULOCYTE % (test code=IG%) 9.4 % 0.0-5.0 "The appearance of immature granulocytes (myelocytes,pro-myelocytes, meta-myelocytes) in the peripheral blood ofnon- individuals can indicate a response toinfection, inflammation, or other stimulus to the bonemarrow" NUCLEATED RBC % (test code=NRBC%) 0.5 % 0-0 NEUTROPHIL # (test code=NT#) 5.07 K/mm3 1.8-7.7 IMMATURE GRANULOCYTE # (test code=IG#) 0.56 x10 3/uL 0-0.03 LYMPHOCYTE # (test code=LY#) 0.19 K/mm3 1.0-5.0 MONOCYTE # (test code=MO#) 0.13 K/mm3 0-0.8 EOSINOPHIL # (test code=EO#) 0.00 K/mm3 0.0-0.5 BASOPHIL # (test code=BA#) 0.01 K/mm3 0.0-0.2 NUCLEATED RBC # (test code=NRBC#) 0.03 K/mm3 0.0-0.1 MANUAL DIFF REQUIRED (test code=MDIFF) YES STAIN ACCEPTABILITY (test code=STN ACCEPTABLE) TOTAL CELLS COUNTED (test code=TCC) #CELLS SEGMENTED NEUTROPHILS (test code=SEG) % 39-69 LYMPHOCYTE (test code=LYMPH) % 25-55 MONOCYTE (test code=MON) % 0-10 EOSINOPHIL (test code=EOS) % 0.0-5.0 MORPHOLOGY COMMENT (test code=MOC) PLATELET ESTIMATE (test code=PLTEST) PLATELET MORPHOLOGY (test code=PLTMORPH) PT IS HS, RN SUZETTE GOODWIN ON NURSES 3-4 ID V.LAB.RP 1034CBC W/MANUAL [id number] 13:39:00* Test Item Value Reference Range Comments WHITE BLOOD CELL (test code=WBC) 6.0 K/mm3 4.5-12.5 RED BLOOD CELL (test code=RBC) 3.05 mill/mm3 3.7-5.2 HEMOGLOBIN (test code=HGB) 8.8 gram/dL 11.5-15.5 HEMATOCRIT (test code=HCT) 28.8 % 36.0-46.0 MEAN CELL VOLUME (test code=MCV) 94.4 fL 80-98 MEAN CELL HGB (test code=MCH) 28.9 picogram 27.0-33.0 MEAN CELL HGB CONCETRATION (test code=MCHC) 30.6 gram/dL 33.0-36.0 RED CELL DISTRIBUTION WIDTH (test code=RDW) 18.2 % 11.6-16.2 RED CELL DISTRIBUTION WIDTH SD (test code=RDW-SD) 60.3 fL 37.0-51.0 PLATELET COUNT (test code=PLT) 42 K/mm3 150-450 Results called to SUZETTE by MYAH 03/28/19 1338Critical results verified and read back by Nurse? Y MEAN PLATELET VOLUME (test code=MPV) 11.7 fL 6.7-11.0 IMMATURE GRANULOCYTE % (test code=IG%) 9.4 % 0.0-5.0 "The appearance of immature granulocytes (myelocytes,pro-myelocytes, meta-myelocytes) in the peripheral blood ofnon- individuals can indicate a response toinfection, inflammation, or other stimulus to the bonemarrow" NUCLEATED RBC % (test code=NRBC%) 0.5 % 0-0 NEUTROPHIL # (test code=NT#) 5.07 K/mm3 1.8-7.7 IMMATURE GRANULOCYTE # (test code=IG#) 0.56 x10 3/uL 0-0.03 LYMPHOCYTE # (test code=LY#) 0.19 K/mm3 1.0-5.0 MONOCYTE # (test code=MO#) 0.13 K/mm3 0-0.8 EOSINOPHIL # (test code=EO#) 0.00 K/mm3 0.0-0.5 BASOPHIL # (test code=BA#) 0.01 K/mm3 0.0-0.2 NUCLEATED RBC # (test code=NRBC#) 0.03 K/mm3 0.0-0.1 MANUAL DIFF REQUIRED (test code=MDIFF) YES STAIN ACCEPTABILITY (test code=STN ACCEPTABLE) TOTAL CELLS COUNTED (test code=TCC) #CELLS SEGMENTED NEUTROPHILS (test code=SEG) % 39-69 LYMPHOCYTE (test code=LYMPH) % 25-55 MONOCYTE (test code=MON) % 0-10 MORPHOLOGY COMMENT (test code=MOC) PLATELET ESTIMATE (test code=PLTEST) PLATELET MORPHOLOGY (test code=PLTMORPH) PT IS HS, RN SUZETTE GOODWIN ON NURSES 3-4 ID V.LAB.[id number] 1034CBC W/MANUAL [id number] 13:39:00* Test Item Value Reference Range Comments WHITE BLOOD CELL (test code=WBC) 6.0 K/mm3 4.5-12.5 RED BLOOD CELL (test code=RBC) 3.05 mill/mm3 3.7-5.2 HEMOGLOBIN (test code=HGB) 8.8 gram/dL 11.5-15.5 HEMATOCRIT (test code=HCT) 28.8 % 36.0-46.0 MEAN CELL VOLUME (test code=MCV) 94.4 fL 80-98 MEAN CELL HGB (test code=MCH) 28.9 picogram 27.0-33.0 MEAN CELL HGB CONCETRATION (test code=MCHC) 30.6 gram/dL 33.0-36.0 RED CELL DISTRIBUTION WIDTH (test code=RDW) 18.2 % 11.6-16.2 RED CELL DISTRIBUTION WIDTH SD (test code=RDW-SD) 60.3 fL 37.0-51.0 PLATELET COUNT (test code=PLT) 42 K/mm3 150-450 Results called to SUZETTE by V.LABKAT 03/28/19 1338Critical results verified and read back by Nurse? Y MEAN PLATELET VOLUME (test code=MPV) 11.7 fL 6.7-11.0 IMMATURE GRANULOCYTE % (test code=IG%) 9.4 % 0.0-5.0 "The appearance of immature granulocytes (myelocytes,pro-myelocytes, meta-myelocytes) in the peripheral blood ofnon- individuals can indicate a response toinfection, inflammation, or other stimulus to the bonemarrow" NUCLEATED RBC % (test code=NRBC%) 0.5 % 0-0 NEUTROPHIL # (test code=NT#) 5.07 K/mm3 1.8-7.7 IMMATURE GRANULOCYTE # (test code=IG#) 0.56 x10 3/uL 0-0.03 LYMPHOCYTE # (test code=LY#) 0.19 K/mm3 1.0-5.0 MONOCYTE # (test code=MO#) 0.13 K/mm3 0-0.8 EOSINOPHIL # (test code=EO#) 0.00 K/mm3 0.0-0.5 BASOPHIL # (test code=BA#) 0.01 K/mm3 0.0-0.2 NUCLEATED RBC # (test code=NRBC#) 0.03 K/mm3 0.0-0.1 MANUAL DIFF REQUIRED (test code=MDIFF) YES STAIN ACCEPTABILITY (test code=STN ACCEPTABLE) TOTAL CELLS COUNTED (test code=TCC) #CELLS SEGMENTED NEUTROPHILS (test code=SEG) % 39-69 LYMPHOCYTE (test code=LYMPH) % 25-55 MONOCYTE (test code=MON) % 0-10 EOSINOPHIL (test code=EOS) % 0.0-5.0 CABOT RINGS (test code=CAB) MORPHOLOGY COMMENT (test code=MOC) PLATELET ESTIMATE (test code=PLTEST) PLATELET MORPHOLOGY (test code=PLTMORPH) PT IS HS, RN SUZETTE GOODWIN ON NURSES 3-4 ID [id number] 1034BASIC METABOLIC [id number] 13:38:00* Test Item Value Reference Range Comments SODIUM (test code=NA) 147 mmol/L 136-145 POTASSIUM (test code=K) 4.9 mmol/L 3.5-5.1 CHLORIDE (test code=CL) 110.0 mmol/L 98-107 CARBON DIOXIDE (test code=CO2) mmol/L 21-32 ANION GAP (test code=GAP) 10-20 GLUCOSE (test code=GLU) mg/dL 74-106 BLOOD UREA NITROGEN (test code=BUN) mg/dL 7-18 GLOMERULAR FILTRATION RATE (test code=GFR) mL/min >=60 CREATININE (test code=CREAT) mg/dL 0.55-1.02 BUN/CREATININE RATIO (test code=BUN/CREA) 10-20 CALCIUM (test code=CA) mg/dL 8.5-10.1 RP1 03/28/19 1034CBC W/MANUAL [id number] 15:07:00* Test Item Value Reference Range Comments WHITE BLOOD CELL (test code=WBC) 22.0 K/mm3 4.5-12.5 RED BLOOD CELL (test code=RBC) 3.93 mill/mm3 3.7-5.2 HEMOGLOBIN (test code=HGB) 11.4 gram/dL 11.5-15.5 RESULT VERIFIED BY REPEAT ANALYSIS HEMATOCRIT (test code=HCT) 38.6 % 36.0-46.0 MEAN CELL VOLUME (test code=MCV) 98.2 fL 80-98 MEAN CELL HGB (test code=MCH) 29.0 picogram 27.0-33.0 MEAN CELL HGB CONCETRATION (test code=MCHC) 29.5 gram/dL 33.0-36.0 RED CELL DISTRIBUTION WIDTH (test code=RDW) 18.9 % 11.6-16.2 RED CELL DISTRIBUTION WIDTH SD (test code=RDW-SD) 64.4 fL 37.0-51.0 PLATELET COUNT (test code=PLT) 128 K/mm3 150-450 MEAN PLATELET VOLUME (test code=MPV) 12.5 fL 6.7-11.0 IMMATURE GRANULOCYTE % (test code=IG%) 17.2 % 0.0-5.0 "The appearance of immature granulocytes (myelocytes,pro-myelocytes, meta-myelocytes) in the peripheral blood ofnon- individuals can indicate a response toinfection, inflammation, or other stimulus to the bonemarrow" NUCLEATED RBC % (test code=NRBC%) 1.1 % 0-0 NEUTROPHIL # (test code=NT#) 16.13 K/mm3 1.8-7.7 IMMATURE GRANULOCYTE # (test code=IG#) 3.79 x10 3/uL 0-0.03 LYMPHOCYTE # (test code=LY#) 1.23 K/mm3 1.0-5.0 MONOCYTE # (test code=MO#) 0.81 K/mm3 0-0.8 EOSINOPHIL # (test code=EO#) 0.00 K/mm3 0.0-0.5 BASOPHIL # (test code=BA#) 0.02 K/mm3 0.0-0.2 NUCLEATED RBC # (test code=NRBC#) 0.25 K/mm3 0.0-0.1 MANUAL DIFF REQUIRED (test code=MDIFF) YES STAIN ACCEPTABILITY (test code=STN ACCEPTABLE) STAIN ACCEPTABLE TOTAL CELLS COUNTED (test code=TCC) 100 #CELLS SEGMENTED NEUTROPHILS (test code=SEG) 78 % 39-69 BAND NEUTROPHIL (test code=BAND) 4 % 0-10 LYMPHOCYTE (test code=LYMPH) 8 % 25-55 MONOCYTE (test code=MON) 6 % 0-10 METAMYELOCYTE (test code=META) 2 % 0-0 MYELOCYTE (test code=MYELO) 2 % 0.0-0.0 POLYCHROMASIA (test code=POLC) 1+ POIKILOCYTOSIS (test code=POIK) 1+ ANISOCYTOSIS (test code=ANISO) 1+ PLATELET ESTIMATE (test code=PLTEST) SLIGHTLY DECREASED PLATELET MORPHOLOGY (test code=PLTMORPH) NORMAL PT REFUSED RN [id number] V.LAB.KP2 03/27/19 0607B-TYPE NATRIURETIC PEPTIDE 2019-03-27 15:06:00* Test Item Value Reference Range Comments B-TYPE NATRIURETIC PEPTIDE (test code=BNP) 2810 pg/mL 0-100 CBC W/MANUAL [id number] 13:04:00* Test Item Value Reference Range Comments WHITE BLOOD CELL (test code=WBC) 22.0 K/mm3 4.5-12.5 RED BLOOD CELL (test code=RBC) 3.93 mill/mm3 3.7-5.2 HEMOGLOBIN (test code=HGB) 11.4 gram/dL 11.5-15.5 RESULT VERIFIED BY REPEAT ANALYSIS HEMATOCRIT (test code=HCT) 38.6 % 36.0-46.0 MEAN CELL VOLUME (test code=MCV) 98.2 fL 80-98 MEAN CELL HGB (test code=MCH) 29.0 picogram 27.0-33.0 MEAN CELL HGB CONCETRATION (test code=MCHC) 29.5 gram/dL 33.0-36.0 RED CELL DISTRIBUTION WIDTH (test code=RDW) 18.9 % 11.6-16.2 RED CELL DISTRIBUTION WIDTH SD (test code=RDW-SD) 64.4 fL 37.0-51.0 PLATELET COUNT (test code=PLT) 128 K/mm3 150-450 MEAN PLATELET VOLUME (test code=MPV) 12.5 fL 6.7-11.0 IMMATURE GRANULOCYTE % (test code=IG%) 17.2 % 0.0-5.0 "The appearance of immature granulocytes (myelocytes,pro-myelocytes, meta-myelocytes) in the peripheral blood ofnon- individuals can indicate a response toinfection, inflammation, or other stimulus to the bonemarrow" NUCLEATED RBC % (test code=NRBC%) 1.1 % 0-0 NEUTROPHIL # (test code=NT#) 16.13 K/mm3 1.8-7.7 IMMATURE GRANULOCYTE # (test code=IG#) 3.79 x10 3/uL 0-0.03 LYMPHOCYTE # (test code=LY#) 1.23 K/mm3 1.0-5.0 MONOCYTE # (test code=MO#) 0.81 K/mm3 0-0.8 EOSINOPHIL # (test code=EO#) 0.00 K/mm3 0.0-0.5 BASOPHIL # (test code=BA#) 0.02 K/mm3 0.0-0.2 NUCLEATED RBC # (test code=NRBC#) 0.25 K/mm3 0.0-0.1 MANUAL DIFF REQUIRED (test code=MDIFF) YES STAIN ACCEPTABILITY (test code=STN ACCEPTABLE) TOTAL CELLS COUNTED (test code=TCC) #CELLS SEGMENTED NEUTROPHILS (test code=SEG) % 39-69 LYMPHOCYTE (test code=LYMPH) % 25-55 MONOCYTE (test code=MON) % 0-10 MORPHOLOGY COMMENT (test code=MOC) PLATELET ESTIMATE (test code=PLTEST) PLATELET MORPHOLOGY (test code=PLTMORPH) PT REFUSED RN [id number] V.LAB.KP2 03/27/19 0607CB W/MANUAL [id number] 13:01:00* Test Item Value Reference Range Comments WHITE BLOOD CELL (test code=WBC) 22.0 K/mm3 4.5-12.5 RED BLOOD CELL (test code=RBC) 3.93 mill/mm3 3.7-5.2 HEMOGLOBIN (test code=HGB) 11.4 gram/dL 11.5-15.5 RESULT VERIFIED BY REPEAT ANALYSIS HEMATOCRIT (test code=HCT) 38.6 % 36.0-46.0 MEAN CELL VOLUME (test code=MCV) 98.2 fL 80-98 MEAN CELL HGB (test code=MCH) 29.0 picogram 27.0-33.0 MEAN CELL HGB CONCETRATION (test code=MCHC) 29.5 gram/dL 33.0-36.0 RED CELL DISTRIBUTION WIDTH (test code=RDW) 18.9 % 11.6-16.2 RED CELL DISTRIBUTION WIDTH SD (test code=RDW-SD) 64.4 fL 37.0-51.0 PLATELET COUNT (test code=PLT) 128 K/mm3 150-450 MEAN PLATELET VOLUME (test code=MPV) 12.5 fL 6.7-11.0 IMMATURE GRANULOCYTE % (test code=IG%) 17.2 % 0.0-5.0 "The appearance of immature granulocytes (myelocytes,pro-myelocytes, meta-myelocytes) in the peripheral blood ofnon- individuals can indicate a response toinfection, inflammation, or other stimulus to the bonemarrow" NUCLEATED RBC % (test code=NRBC%) 1.1 % 0-0 NEUTROPHIL # (test code=NT#) 16.13 K/mm3 1.8-7.7 IMMATURE GRANULOCYTE # (test code=IG#) 3.79 x10 3/uL 0-0.03 LYMPHOCYTE # (test code=LY#) 1.23 K/mm3 1.0-5.0 MONOCYTE # (test code=MO#) 0.81 K/mm3 0-0.8 EOSINOPHIL # (test code=EO#) 0.00 K/mm3 0.0-0.5 BASOPHIL # (test code=BA#) 0.02 K/mm3 0.0-0.2 NUCLEATED RBC # (test code=NRBC#) 0.25 K/mm3 0.0-0.1 MANUAL DIFF REQUIRED (test code=MDIFF) YES STAIN ACCEPTABILITY (test code=STN ACCEPTABLE) TOTAL CELLS COUNTED (test code=TCC) #CELLS SEGMENTED NEUTROPHILS (test code=SEG) % 39-69 LYMPHOCYTE (test code=LYMPH) % 25-55 MONOCYTE (test code=MON) % 0-10 EOSINOPHIL (test code=EOS) % 0.0-5.0 CABOT RINGS (test code=CAB) MORPHOLOGY COMMENT (test code=MOC) PLATELET ESTIMATE (test code=PLTEST) PLATELET MORPHOLOGY (test code=PLTMORPH) PT REFUSED RN [id number] V.LAB.KP2 03/27/19 0607CBC W/MANUAL [id number] 13:01:00* Test Item Value Reference Range Comments WHITE BLOOD CELL (test code=WBC) 22.0 K/mm3 4.5-12.5 RED BLOOD CELL (test code=RBC) 3.93 mill/mm3 3.7-5.2 HEMOGLOBIN (test code=HGB) 11.4 gram/dL 11.5-15.5 RESULT VERIFIED BY REPEAT ANALYSIS HEMATOCRIT (test code=HCT) 38.6 % 36.0-46.0 MEAN CELL VOLUME (test code=MCV) 98.2 fL 80-98 MEAN CELL HGB (test code=MCH) 29.0 picogram 27.0-33.0 MEAN CELL HGB CONCETRATION (test code=MCHC) 29.5 gram/dL 33.0-36.0 RED CELL DISTRIBUTION WIDTH (test code=RDW) 18.9 % 11.6-16.2 RED CELL DISTRIBUTION WIDTH SD (test code=RDW-SD) 64.4 fL 37.0-51.0 PLATELET COUNT (test code=PLT) 128 K/mm3 150-450 MEAN PLATELET VOLUME (test code=MPV) 12.5 fL 6.7-11.0 IMMATURE GRANULOCYTE % (test code=IG%) 17.2 % 0.0-5.0 "The appearance of immature granulocytes (myelocytes,pro-myelocytes, meta-myelocytes) in the peripheral blood ofnon- individuals can indicate a response toinfection, inflammation, or other stimulus to the bonemarrow" NUCLEATED RBC % (test code=NRBC%) 1.1 % 0-0 NEUTROPHIL # (test code=NT#) 16.13 K/mm3 1.8-7.7 IMMATURE GRANULOCYTE # (test code=IG#) 3.79 x10 3/uL 0-0.03 LYMPHOCYTE # (test code=LY#) 1.23 K/mm3 1.0-5.0 MONOCYTE # (test code=MO#) 0.81 K/mm3 0-0.8 EOSINOPHIL # (test code=EO#) 0.00 K/mm3 0.0-0.5 BASOPHIL # (test code=BA#) 0.02 K/mm3 0.0-0.2 NUCLEATED RBC # (test code=NRBC#) 0.25 K/mm3 0.0-0.1 MANUAL DIFF REQUIRED (test code=MDIFF) YES STAIN ACCEPTABILITY (test code=STN ACCEPTABLE) TOTAL CELLS COUNTED (test code=TCC) #CELLS SEGMENTED NEUTROPHILS (test code=SEG) % 39-69 LYMPHOCYTE (test code=LYMPH) % 25-55 MONOCYTE (test code=MON) % 0-10 EOSINOPHIL (test code=EOS) % 0.0-5.0 CABOT RINGS (test code=CAB) MORPHOLOGY COMMENT (test code=MOC) PLATELET ESTIMATE (test code=PLTEST) PLATELET MORPHOLOGY (test code=PLTMORPH) PT REFUSED RN [id number] V.LAB.KP2 03[facility]27/19 [facility] [id number] 12:36:00* Test Item Value Reference Range Comments SODIUM (test code=NA) 142 mmol/L 136-145 POTASSIUM (test code=K) 5.8 mmol/L 3.5-5.1 CHLORIDE (test code=CL) 112.0 mmol/L 98-107 CARBON DIOXIDE (test code=CO2) 18.0 mmol/L 21-32 ANION GAP (test code=GAP) 17.8 10-20 GLUCOSE (test code=GLU) 208 mg/dL 74-106 BLOOD UREA NITROGEN (test code=BUN) 79 mg/dL 7-18 GLOMERULAR FILTRATION RATE (test code=GFR) 19 mL/min >=60 Estimated GFR by using Modified MDRD formula.Chronic kidney disease is defined as either kidney damageor GFR <60 mL/min/1.73 m2 for >3 months. CREATININE (test code=CREAT) 2.60 mg/dL 0.55-1.02 Note change in reference range due to change in reagent. BUN/CREATININE RATIO (test code=BUN/CREA) 30.9 10-20 CALCIUM (test code=CA) 8.2 mg/dL 8.5-10.1 PT REFUSED RN [id number] V.LAB.KP2 03/27/19 0607- XR CHEST 1 [id number] 11:57:00 FAX: Kim Wayne MD [phone] [place]: St: ADM FAX: Gray Luong MD Name: SIOBHAN BARBOSA [facility] : 1965 Age/S: 54/F [address] [facility] Unit #: [id number] Loc: V.[address] [place] [address] Phys: Kim Dill MD Acct: [id number] Dis Date: Status: ADM IN PHONE #: [phone] Exam Date: 03/27/2019 1145 FAX #: [phone] Reason: DYSPNEA EXAMS: CPT CODE: [id number] XR CHEST 1 V 82646 HISTORY: Dyspnea. COMPARISON: March 21, 2019. Multiloculated moderate left lateral basal effusion and free-flowing moderate right effusion. Diffuse dense alveolar infiltrates as well are unchanged. Cardiomegaly. IMPRESSION: Mul tiloculated left lateral basal pleural effusion. Free-flowing moderate r ight basal effusion. Diffuse dense bilateral alveolar infiltrates. These findings are essentially unchanged. at 1157 Reported and signed by : Krystian Johnson M.D. CC: Kim Dill MD; Tanya Knott Technologist: RT KAREN(R) Trnscrd Date/Time/By: 03/27/2019 (5468) : By: [email or web address] Orig Print D/T: S: 03/27/2019 (6287) PAGE 1 Signed Report - CT ABD PELVIS W/O CONT 2019-03-26 10:08:00 Name: SIOBHAN BARBOSA [facility] : 1965 Age/S: 54 / F [address] Unit #: [id number] Loc: [place] [address] Phys: Omer Luna MD Acct: [id number] Dis Date: Status: ADM IN PHONE #: [phone] Exam Date: 03/26/2019 0947 FAX #: [phone] Reason: STONE PROTOCOL. EVAL STONES AND STENT. EXAMS: CPT CODE: [id number] CT ABD PELVIS W/O CONT 40881 HISTORY: Evaluate stones and stent. COMPARISON: CT scan from October 24, 2018 and November 14, 2018. CT abdomen and pelvis: Stone protocol. Automated exposure control. CT of abdomen: Moderate partially loculated left effusion with subsegmental atelectasis and free- flowing moderate right effusion. Patchy right middle lobe infiltrate. Subsegmental basal atelectasis bilaterally. Noncontrast liver demonstrate slightly lobular contour. Liver measured 16 cm in length. Mild prominence of the intra and extrahepatic ducts with faint stone suspected within the distal CBD within the head of the pancreas measuring approximately 2 mm. Correlate with hepatic enzymes. This is difficult to assess and I would recommend follow-up with MRCP exam. Multiple calcified gallstones noted again. Spleen is prominent at 14.5 cm in length. Stomach distended incompletely with food and it is normal with moderate fluid within the gastrohepatic ligament and lesser sac location. Noncontrast pancreas is extensively obscured by beam hardening artifact from patient's arms but appears grossly normal. No ductal dilatation. Adrenals are poorly visible with hyperplasia on the right side. Multiple calyceal stones in the left kidney measuring up to 2.3 cm in the upper, lower and interpolar location. Double-J stent appears to be in good position as well. Mild right hydroureteronephrosis is noted as well. No calyceal stones are visible. No obvious ureteral stone is visible. No pathologic adenopathy. Very heavy atherosclerotic calcifications of the abdominal and pelvic vasculature. IVC filter caudal to the level of the renal veins. No bowel obstruction. Constipation. No colitis or diverticulitis or enteritis. CT PELVIS: Appendix is normal and high riding without inflammatory changes. PAGE 1 Signed Report (CONTINUED) Name: SIOBHAN BARBOSA [facility] : 1965 Age/S: 54 / F [address] Unit #: [id number] Loc: [place] [address] Phys: Omer Luna MD Acct: [id number] Dis Date: Status: ADM IN PHONE #: [phone] Exam Date: 03/26/2019 0947 FAX #: [phone] Reason: STONE PROTOCOL. EVAL STONES AND STENT. EXAMS: CPT CODE: [id number] CT ABD PELVIS W/O CONT 16883 < Continued> Constipation. No bowel obstruction. Decompressed urinary bladder with double-J stent in the left collecting system. 4.4 mm stone just proximal to the distal J best seen on image #101. Suprapubic catheter with the catheter bulb abutting the right lateral wall of the decompressed urinary bladder. Bladder is difficult to assess as a result. The distal right ureter is not clearly identified. No obstructing stone is visible either. Phleboliths. Patient is post hysterectomy. Ovaries are not seen. Small free fluid. The previously noted large anterior abdominal and pelvic wall hematoma is not visible. Diffuse subcutaneous edema. No drainable fluid collections. No lytic or blastic lesions are noted within the bony skeleton. DJD. IMPRESSION: No hydroureteronephrosis on the left side with multiple innumerable calyceal stones in the upper, lower and interpolar location measuring up to 2.3 cm. Double-J stent is noted in the left collecting system in good position. Stone seen along distal stent at the level just proximal to the double-J, best seen on image #101 measuring 4.4 mm. M ild right hydroureteronephrosis as well. The distal right ureter is not identified. No obvious obstructing ureteral stone is visible on this e xam. No calyceal stones are visible on the right side either. Decompressed urinary bladder with suprapubic catheter with the bulb ext ending towards the dependent portion along the right lateral wall of the urinary bladder which is difficult to assess as a result. Sma ll free fluid. Moderate free fluid in the lesser sac and gastrohepatic ligament location. Cirrhotic liver with mildly prominent splee n. Gallstones. 2 mm stone suspected within the distal CBD with mild pr ominence of the intra and extrahepatic ducts. Correlate with hepatic en zymes and MRCP exam No bowel obstruction. Constipation. Norm al appendix. Diffuse subcutaneous edema. PAGE 2 Signed Report (CONTINUED) Name: SIOBHAN BARBOSA [facility] : 1965 Age/S: 54 / F [address] Unit #: [id number] Loc: [place], [place] [address] Phys: Omer Luna MD Acct: [id number] Dis Date: Status: ADM IN PHONE #: [phone] Exam Date: 0 03/26/2019 0947 FAX #: [phone] Reason: STONE CATIA COL. EVAL STONES AND STENT. EXAMS: CPT CODE: [id number] CT ABD PELVIS W/O CONT 89088 <Continued> at 1008 Reported and signed by: Krystian Johnson M.D. CC: Omer Lnua MD; Gray Knott Technologist:Lorna Rosales RT(R),CT CTDI: DLP: Trnscb Date/Time: 03/26/2019 (1008) t.[email or web address] Orig Print D/T: S: 03/26/2019 (1011) PAGE 3 Signed Report CBC W/MANUAL [id number] 09:00:00* Test Item Value Reference Range Comments WHITE BLOOD CELL (test code=WBC) 7.1 K/mm3 4.5-12.5 RED BLOOD CELL (test code=RBC) 3.18 mill/mm3 3.7-5.2 HEMOGLOBIN (test code=HGB) 9.3 gram/dL 11.5-15.5 RESULT VERIFIED BY REPEAT ANALYSIS HEMATOCRIT (test code=HCT) 29.5 % 36.0-46.0 MEAN CELL VOLUME (test code=MCV) 92.8 fL 80-98 MEAN CELL HGB (test code=MCH) 29.2 picogram 27.0-33.0 MEAN CELL HGB CONCETRATION (test code=MCHC) 31.5 gram/dL 33.0-36.0 RED CELL DISTRIBUTION WIDTH (test code=RDW) 17.6 % 11.6-16.2 RED CELL DISTRIBUTION WIDTH SD (test code=RDW-SD) 57.9 fL 37.0-51.0 PLATELET COUNT (test code=PLT) 62 K/mm3 150-450 MEAN PLATELET VOLUME (test code=MPV) 12.4 fL 6.7-11.0 IMMATURE GRANULOCYTE % (test code=IG%) 9.4 % 0.0-5.0 "The appearance of immature granulocytes (myelocytes,pro-myelocytes, meta-myelocytes) in the peripheral blood ofnon- individuals can indicate a response toinfection, inflammation, or other stimulus to the bonemarrow" NUCLEATED RBC % (test code=NRBC%) 0.4 % 0-0 NEUTROPHIL # (test code=NT#) 5.96 K/mm3 1.8-7.7 IMMATURE GRANULOCYTE # (test code=IG#) 0.67 x10 3/uL 0-0.03 LYMPHOCYTE # (test code=LY#) 0.27 K/mm3 1.0-5.0 MONOCYTE # (test code=MO#) 0.17 K/mm3 0-0.8 EOSINOPHIL # (test code=EO#) 0.01 K/mm3 0.0-0.5 BASOPHIL # (test code=BA#) 0.02 K/mm3 0.0-0.2 NUCLEATED RBC # (test code=NRBC#) 0.03 K/mm3 0.0-0.1 MANUAL DIFF REQUIRED (test code=MDIFF) YES STAIN ACCEPTABILITY (test code=STN ACCEPTABLE) STAIN ACCEPTABLE TOTAL CELLS COUNTED (test code=TCC) 114 #CELLS SEGMENTED NEUTROPHILS (test code=SEG) 89.5 % 39-69 BAND NEUTROPHIL (test code=BAND) 0 % 0-10 LYMPHOCYTE (test code=LYMPH) 3.5 % 25-55 REACTIVE LYMPH (test code=RELYMPH) 0 % MONOCYTE (test code=MON) 3.5 % 0-10 EOSINOPHIL (test code=EOS) 0 % 0.0-5.0 BASOPHIL (test code=BASO) 0 % 0-1.0 METAMYELOCYTE (test code=META) 1.8 % 0-0 MYELOCYTE (test code=MYELO) 1.7 % 0.0-0.0 PROMYELOCYTE (test code=PROM) 0 % 0-0 POIKILOCYTOSIS (test code=POIK) 1+ ANISOCYTOSIS (test code=ANISO) 2+ MACROCYTOSIS (test code=MACR) 1+ JAYLA CELLS (test code=JAYLA) 1+ NONE ACANTHOCYTES (test code=ACAN) 1+ NONE PLATELET ESTIMATE (test code=PLTEST) DECREASED PLATELET MORPHOLOGY (test code=PLTMORPH) NORMAL IMMATURE FORMS (test code=IMMAT) 0 % 0-0 BASIC METABOLIC [id number] 08:24:00* Test Item Value Reference Range Comments SODIUM (test code=NA) 142 mmol/L 136-145 POTASSIUM (test code=K) 5.1 mmol/L 3.5-5.1 CHLORIDE (test code=CL) 113.0 mmol/L 98-107 CARBON DIOXIDE (test code=CO2) 23.0 mmol/L 21-32 ANION GAP (test code=GAP) 11.1 10-20 GLUCOSE (test code=GLU) 172 mg/dL 74-106 BLOOD UREA NITROGEN (test code=BUN) 74 mg/dL 7-18 GLOMERULAR FILTRATION RATE (test code=GFR) 19 mL/min >=60 Estimated GFR by using Modified MDRD formula.Chronic kidney disease is defined as either kidney damageor GFR <60 mL/min/1.73 m2 for >3 months. CREATININE (test code=CREAT) 2.60 mg/dL 0.55-1.02 Note change in reference range due to change in reagent. BUN/CREATININE RATIO (test code=BUN/CREA) 28.8 10-20 CALCIUM (test code=CA) 8.6 mg/dL 8.5-10.1 03/26/19 [id number] 08:24:00* Test Item Value Reference Range Comments PHOSPHORUS (test code=PHOS) 4.9 mg/dL 2.5-4.9 [id number] 08:24:00* Test Item Value Reference Range Comments MAGNESIUM (test code=MAG) 2.3 mg/dL 1.8-2.4 BASIC METABOLIC [id number] 08:19:00* Test Item Value Reference Range Comments SODIUM (test code=NA) 142 mmol/L 136-145 POTASSIUM (test code=K) 5.1 mmol/L 3.5-5.1 CHLORIDE (test code=CL) 113.0 mmol/L 98-107 CARBON DIOXIDE (test code=CO2) mmol/L 21-32 ANION GAP (test code=GAP) 10-20 GLUCOSE (test code=GLU) mg/dL 74-106 BLOOD UREA NITROGEN (test code=BUN) mg/dL 7-18 GLOMERULAR FILTRATION RATE (test code=GFR) mL/min >=60 CREATININE (test code=CREAT) mg/dL 0.55-1.02 BUN/CREATININE RATIO (test code=BUN/CREA) 10-20 CALCIUM (test code=CA) mg/dL 8.5-10.1 03/26/19 [id number] 08:19:00* Test Item Value Reference Range Comments PHOSPHORUS (test code=PHOS) mg/dL 2.5-4.9 [id number] 08:19:00* Test Item Value Reference Range Comments MAGNESIUM (test code=MAG) 2.3 mg/dL 1.8-2.4 CBC W/MANUAL [id number] 08:13:00* Test Item Value Reference Range Comments WHITE BLOOD CELL (test code=WBC) 7.1 K/mm3 4.5-12.5 RED BLOOD CELL (test code=RBC) 3.18 mill/mm3 3.7-5.2 HEMOGLOBIN (test code=HGB) 9.3 gram/dL 11.5-15.5 RESULT VERIFIED BY REPEAT ANALYSIS HEMATOCRIT (test code=HCT) 29.5 % 36.0-46.0 MEAN CELL VOLUME (test code=MCV) 92.8 fL 80-98 MEAN CELL HGB (test code=MCH) 29.2 picogram 27.0-33.0 MEAN CELL HGB CONCETRATION (test code=MCHC) 31.5 gram/dL 33.0-36.0 RED CELL DISTRIBUTION WIDTH (test code=RDW) 17.6 % 11.6-16.2 RED CELL DISTRIBUTION WIDTH SD (test code=RDW-SD) 57.9 fL 37.0-51.0 PLATELET COUNT (test code=PLT) 62 K/mm3 150-450 MEAN PLATELET VOLUME (test code=MPV) 12.4 fL 6.7-11.0 IMMATURE GRANULOCYTE % (test code=IG%) 9.4 % 0.0-5.0 "The appearance of immature granulocytes (myelocytes,pro-myelocytes, meta-myelocytes) in the peripheral blood ofnon- individuals can indicate a response toinfection, inflammation, or other stimulus to the bonemarrow" NUCLEATED RBC % (test code=NRBC%) 0.4 % 0-0 NEUTROPHIL # (test code=NT#) 5.96 K/mm3 1.8-7.7 IMMATURE GRANULOCYTE # (test code=IG#) 0.67 x10 3/uL 0-0.03 LYMPHOCYTE # (test code=LY#) 0.27 K/mm3 1.0-5.0 MONOCYTE # (test code=MO#) 0.17 K/mm3 0-0.8 EOSINOPHIL # (test code=EO#) 0.01 K/mm3 0.0-0.5 BASOPHIL # (test code=BA#) 0.02 K/mm3 0.0-0.2 NUCLEATED RBC # (test code=NRBC#) 0.03 K/mm3 0.0-0.1 MANUAL DIFF REQUIRED (test code=MDIFF) YES STAIN ACCEPTABILITY (test code=STN ACCEPTABLE) TOTAL CELLS COUNTED (test code=TCC) #CELLS SEGMENTED NEUTROPHILS (test code=SEG) % 39-69 LYMPHOCYTE (test code=LYMPH) % 25-55 MONOCYTE (test code=MON) % 0-10 EOSINOPHIL (test code=EOS) % 0.0-5.0 CABOT RINGS (test code=CAB) MORPHOLOGY COMMENT (test code=MOC) PLATELET ESTIMATE (test code=PLTEST) PLATELET MORPHOLOGY (test code=PLTMORPH) CBC W/MANUAL [id number] 08:13:00* Test Item Value Reference Range Comments WHITE BLOOD CELL (test code=WBC) 7.1 K/mm3 4.5-12.5 RED BLOOD CELL (test code=RBC) 3.18 mill/mm3 3.7-5.2 HEMOGLOBIN (test code=HGB) 9.3 gram/dL 11.5-15.5 RESULT VERIFIED BY REPEAT ANALYSIS HEMATOCRIT (test code=HCT) 29.5 % 36.0-46.0 MEAN CELL VOLUME (test code=MCV) 92.8 fL 80-98 MEAN CELL HGB (test code=MCH) 29.2 picogram 27.0-33.0 MEAN CELL HGB CONCETRATION (test code=MCHC) 31.5 gram/dL 33.0-36.0 RED CELL DISTRIBUTION WIDTH (test code=RDW) 17.6 % 11.6-16.2 RED CELL DISTRIBUTION WIDTH SD (test code=RDW-SD) 57.9 fL 37.0-51.0 PLATELET COUNT (test code=PLT) 62 K/mm3 150-450 MEAN PLATELET VOLUME (test code=MPV) 12.4 fL 6.7-11.0 IMMATURE GRANULOCYTE % (test code=IG%) 9.4 % 0.0-5.0 "The appearance of immature granulocytes (myelocytes,pro-myelocytes, meta-myelocytes) in the peripheral blood ofnon- individuals can indicate a response toinfection, inflammation, or other stimulus to the bonemarrow" NUCLEATED RBC % (test code=NRBC%) 0.4 % 0-0 NEUTROPHIL # (test code=NT#) 5.96 K/mm3 1.8-7.7 IMMATURE GRANULOCYTE # (test code=IG#) 0.67 x10 3/uL 0-0.03 LYMPHOCYTE # (test code=LY#) 0.27 K/mm3 1.0-5.0 MONOCYTE # (test code=MO#) 0.17 K/mm3 0-0.8 EOSINOPHIL # (test code=EO#) 0.01 K/mm3 0.0-0.5 BASOPHIL # (test code=BA#) 0.02 K/mm3 0.0-0.2 NUCLEATED RBC # (test code=NRBC#) 0.03 K/mm3 0.0-0.1 MANUAL DIFF REQUIRED (test code=MDIFF) YES STAIN ACCEPTABILITY (test code=STN ACCEPTABLE) TOTAL CELLS COUNTED (test code=TCC) #CELLS SEGMENTED NEUTROPHILS (test code=SEG) % 39-69 LYMPHOCYTE (test code=LYMPH) % 25-55 MONOCYTE (test code=MON) % 0-10 EOSINOPHIL (test code=EOS) % 0.0-5.0 CABOT RINGS (test code=CAB) MORPHOLOGY COMMENT (test code=MOC) PLATELET ESTIMATE (test code=PLTEST) PLATELET MORPHOLOGY (test code=PLTMORPH) CBC W/MANUAL [id number] 08:13:00* Test Item Value Reference Range Comments WHITE BLOOD CELL (test code=WBC) 7.1 K/mm3 4.5-12.5 RED BLOOD CELL (test code=RBC) 3.18 mill/mm3 3.7-5.2 HEMOGLOBIN (test code=HGB) 9.3 gram/dL 11.5-15.5 RESULT VERIFIED BY REPEAT ANALYSIS HEMATOCRIT (test code=HCT) 29.5 % 36.0-46.0 MEAN CELL VOLUME (test code=MCV) 92.8 fL 80-98 MEAN CELL HGB (test code=MCH) 29.2 picogram 27.0-33.0 MEAN CELL HGB CONCETRATION (test code=MCHC) 31.5 gram/dL 33.0-36.0 RED CELL DISTRIBUTION WIDTH (test code=RDW) 17.6 % 11.6-16.2 RED CELL DISTRIBUTION WIDTH SD (test code=RDW-SD) 57.9 fL 37.0-51.0 PLATELET COUNT (test code=PLT) 62 K/mm3 150-450 MEAN PLATELET VOLUME (test code=MPV) 12.4 fL 6.7-11.0 IMMATURE GRANULOCYTE % (test code=IG%) 9.4 % 0.0-5.0 "The appearance of immature granulocytes (myelocytes,pro-myelocytes, meta-myelocytes) in the peripheral blood ofnon- individuals can indicate a response toinfection, inflammation, or other stimulus to the bonemarrow" NUCLEATED RBC % (test code=NRBC%) 0.4 % 0-0 NEUTROPHIL # (test code=NT#) 5.96 K/mm3 1.8-7.7 IMMATURE GRANULOCYTE # (test code=IG#) 0.67 x10 3/uL 0-0.03 LYMPHOCYTE # (test code=LY#) 0.27 K/mm3 1.0-5.0 MONOCYTE # (test code=MO#) 0.17 K/mm3 0-0.8 EOSINOPHIL # (test code=EO#) 0.01 K/mm3 0.0-0.5 BASOPHIL # (test code=BA#) 0.02 K/mm3 0.0-0.2 NUCLEATED RBC # (test code=NRBC#) 0.03 K/mm3 0.0-0.1 MANUAL DIFF REQUIRED (test code=MDIFF) YES STAIN ACCEPTABILITY (test code=STN ACCEPTABLE) TOTAL CELLS COUNTED (test code=TCC) #CELLS SEGMENTED NEUTROPHILS (test code=SEG) % 39-69 LYMPHOCYTE (test code=LYMPH) % 25-55 MONOCYTE (test code=MON) % 0-10 EOSINOPHIL (test code=EOS) % 0.0-5.0 MORPHOLOGY COMMENT (test code=MOC) PLATELET ESTIMATE (test code=PLTEST) PLATELET MORPHOLOGY (test code=PLTMORPH) CBC W/MANUAL [id number] 08:13:00* Test Item Value Reference Range Comments WHITE BLOOD CELL (test code=WBC) 7.1 K/mm3 4.5-12.5 RED BLOOD CELL (test code=RBC) 3.18 mill/mm3 3.7-5.2 HEMOGLOBIN (test code=HGB) 9.3 gram/dL 11.5-15.5 RESULT VERIFIED BY REPEAT ANALYSIS HEMATOCRIT (test code=HCT) 29.5 % 36.0-46.0 MEAN CELL VOLUME (test code=MCV) 92.8 fL 80-98 MEAN CELL HGB (test code=MCH) 29.2 picogram 27.0-33.0 MEAN CELL HGB CONCETRATION (test code=MCHC) 31.5 gram/dL 33.0-36.0 RED CELL DISTRIBUTION WIDTH (test code=RDW) 17.6 % 11.6-16.2 RED CELL DISTRIBUTION WIDTH SD (test code=RDW-SD) 57.9 fL 37.0-51.0 PLATELET COUNT (test code=PLT) 62 K/mm3 150-450 MEAN PLATELET VOLUME (test code=MPV) 12.4 fL 6.7-11.0 IMMATURE GRANULOCYTE % (test code=IG%) 9.4 % 0.0-5.0 "The appearance of immature granulocytes (myelocytes,pro-myelocytes, meta-myelocytes) in the peripheral blood ofnon- individuals can indicate a response toinfection, inflammation, or other stimulus to the bonemarrow" NUCLEATED RBC % (test code=NRBC%) 0.4 % 0-0 NEUTROPHIL # (test code=NT#) 5.96 K/mm3 1.8-7.7 IMMATURE GRANULOCYTE # (test code=IG#) 0.67 x10 3/uL 0-0.03 LYMPHOCYTE # (test code=LY#) 0.27 K/mm3 1.0-5.0 MONOCYTE # (test code=MO#) 0.17 K/mm3 0-0.8 EOSINOPHIL # (test code=EO#) 0.01 K/mm3 0.0-0.5 BASOPHIL # (test code=BA#) 0.02 K/mm3 0.0-0.2 NUCLEATED RBC # (test code=NRBC#) 0.03 K/mm3 0.0-0.1 MANUAL DIFF REQUIRED (test code=MDIFF) YES STAIN ACCEPTABILITY (test code=STN ACCEPTABLE) TOTAL CELLS COUNTED (test code=TCC) #CELLS SEGMENTED NEUTROPHILS (test code=SEG) % 39-69 LYMPHOCYTE (test code=LYMPH) % 25-55 MONOCYTE (test code=MON) % 0-10 MORPHOLOGY COMMENT (test code=MOC) PLATELET ESTIMATE (test code=PLTEST) PLATELET MORPHOLOGY (test code=PLTMORPH) CBC W/MANUAL [id number] 08:13:00* Test Item Value Reference Range Comments WHITE BLOOD CELL (test code=WBC) 7.1 K/mm3 4.5-12.5 RED BLOOD CELL (test code=RBC) 3.18 mill/mm3 3.7-5.2 HEMOGLOBIN (test code=HGB) 9.3 gram/dL 11.5-15.5 RESULT VERIFIED BY REPEAT ANALYSIS HEMATOCRIT (test code=HCT) 29.5 % 36.0-46.0 MEAN CELL VOLUME (test code=MCV) 92.8 fL 80-98 MEAN CELL HGB (test code=MCH) 29.2 picogram 27.0-33.0 MEAN CELL HGB CONCETRATION (test code=MCHC) 31.5 gram/dL 33.0-36.0 RED CELL DISTRIBUTION WIDTH (test code=RDW) 17.6 % 11.6-16.2 RED CELL DISTRIBUTION WIDTH SD (test code=RDW-SD) 57.9 fL 37.0-51.0 PLATELET COUNT (test code=PLT) 62 K/mm3 150-450 MEAN PLATELET VOLUME (test code=MPV) 12.4 fL 6.7-11.0 IMMATURE GRANULOCYTE % (test code=IG%) 9.4 % 0.0-5.0 "The appearance of immature granulocytes (myelocytes,pro-myelocytes, meta-myelocytes) in the peripheral blood ofnon- individuals can indicate a response toinfection, inflammation, or other stimulus to the bonemarrow" NUCLEATED RBC % (test code=NRBC%) 0.4 % 0-0 NEUTROPHIL # (test code=NT#) 5.96 K/mm3 1.8-7.7 IMMATURE GRANULOCYTE # (test code=IG#) 0.67 x10 3/uL 0-0.03 LYMPHOCYTE # (test code=LY#) 0.27 K/mm3 1.0-5.0 MONOCYTE # (test code=MO#) 0.17 K/mm3 0-0.8 EOSINOPHIL # (test code=EO#) 0.01 K/mm3 0.0-0.5 BASOPHIL # (test code=BA#) 0.02 K/mm3 0.0-0.2 NUCLEATED RBC # (test code=NRBC#) 0.03 K/mm3 0.0-0.1 MANUAL DIFF REQUIRED (test code=MDIFF) YES STAIN ACCEPTABILITY (test code=STN ACCEPTABLE) TOTAL CELLS COUNTED (test code=TCC) #CELLS SEGMENTED NEUTROPHILS (test code=SEG) % 39-69 LYMPHOCYTE (test code=LYMPH) % 25-55 MONOCYTE (test code=MON) % 0-10 EOSINOPHIL (test code=EOS) % 0.0-5.0 CABOT RINGS (test code=CAB) MORPHOLOGY COMMENT (test code=MOC) PLATELET ESTIMATE (test code=PLTEST) PLATELET MORPHOLOGY (test code=PLTMORPH) CBC W/MANUAL [id number] 14:13:00* Test Item Value Reference Range Comments WHITE BLOOD CELL (test code=WBC) 6.4 K/mm3 4.5-12.5 RED BLOOD CELL (test code=RBC) 2.36 mill/mm3 3.7-5.2 HEMOGLOBIN (test code=HGB) 6.6 gram/dL 11.5-15.5 HEMATOCRIT (test code=HCT) 22.2 % 36.0-46.0 MEAN CELL VOLUME (test code=MCV) 94.1 fL 80-98 MEAN CELL HGB (test code=MCH) 28.0 picogram 27.0-33.0 MEAN CELL HGB CONCETRATION (test code=MCHC) 29.7 gram/dL 33.0-36.0 RED CELL DISTRIBUTION WIDTH (test code=RDW) 18.6 % 11.6-16.2 RED CELL DISTRIBUTION WIDTH SD (test code=RDW-SD) 62.8 fL 37.0-51.0 PLATELET COUNT (test code=PLT) 64 K/mm3 150-450 MEAN PLATELET VOLUME (test code=MPV) 11.5 fL 6.7-11.0 IMMATURE GRANULOCYTE % (test code=IG%) 6.8 % 0.0-5.0 "The appearance of immature granulocytes (myelocytes,pro-myelocytes, meta-myelocytes) in the peripheral blood ofnon- individuals can indicate a response toinfection, inflammation, or other stimulus to the bonemarrow" NUCLEATED RBC % (test code=NRBC%) 0.3 % 0-0 NEUTROPHIL # (test code=NT#) 5.42 K/mm3 1.8-7.7 IMMATURE GRANULOCYTE # (test code=IG#) 0.43 x10 3/uL 0-0.03 LYMPHOCYTE # (test code=LY#) 0.31 K/mm3 1.0-5.0 MONOCYTE # (test code=MO#) 0.18 K/mm3 0-0.8 EOSINOPHIL # (test code=EO#) 0.00 K/mm3 0.0-0.5 BASOPHIL # (test code=BA#) 0.01 K/mm3 0.0-0.2 NUCLEATED RBC # (test code=NRBC#) 0.02 K/mm3 0.0-0.1 MANUAL DIFF REQUIRED (test code=MDIFF) YES STAIN ACCEPTABILITY (test code=STN ACCEPTABLE) STAIN ACCEPTABLE TOTAL CELLS COUNTED (test code=TCC) 115 #CELLS SEGMENTED NEUTROPHILS (test code=SEG) 90.4 % 39-69 BAND NEUTROPHIL (test code=BAND) 0 % 0-10 LYMPHOCYTE (test code=LYMPH) 6.1 % 25-55 REACTIVE LYMPH (test code=RELYMPH) 0 % MONOCYTE (test code=MON) 1.7 % 0-10 EOSINOPHIL (test code=EOS) 0 % 0.0-5.0 BASOPHIL (test code=BASO) 0 % 0-1.0 METAMYELOCYTE (test code=META) 0.9 % 0-0 MYELOCYTE (test code=MYELO) 0.9 % 0.0-0.0 PROMYELOCYTE (test code=PROM) 0 % 0-0 HYPOCHROMIA (test code=HYPO) 1+ ANISOCYTOSIS (test code=ANISO) 1+ MACROCYTOSIS (test code=MACR) 1+ PLATELET ESTIMATE (test code=PLTEST) DECREASED PLATELET MORPHOLOGY (test code=PLTMORPH) NORMAL IMMATURE FORMS (test code=IMMAT) 0 % 0-0 PER SABINE PALOMARES [id number] COME BACK LATER V.LAB.[facility] [id number] NATRIURETIC [id number] 13:10:00* Test Item Value Reference Range Comments B-TYPE NATRIURETIC PEPTIDE (test code=BNP) 4568.91 pgram/mL 0-100 COME BACK LATER PER SABINE PALOMARES [id number] V.LAB.[facility] [id number] METABOLIC [id number] 13:02:00* Test Item Value Reference Range Comments SODIUM (test code=NA) 142 mmol/L 136-145 POTASSIUM (test code=K) 4.6 mmol/L 3.5-5.1 CHLORIDE (test code=CL) 111.0 mmol/L 98-107 CARBON DIOXIDE (test code=CO2) 20.0 mmol/L 21-32 ANION GAP (test code=GAP) 15.6 10-20 GLUCOSE (test code=GLU) 214 mg/dL 74-106 BLOOD UREA NITROGEN (test code=BUN) 71 mg/dL 7-18 GLOMERULAR FILTRATION RATE (test code=GFR) 18 mL/min >=60 Estimated GFR by using Modified MDRD formula.Chronic kidney disease is defined as either kidney damageor GFR <60 mL/min/1.73 m2 for >3 months. CREATININE (test code=CREAT) 2.80 mg/dL 0.55-1.02 Note change in reference range due to change in reagent. BUN/CREATININE RATIO (test code=BUN/CREA) 25.3 10-20 CALCIUM (test code=CA) 7.6 mg/dL 8.5-10.1 COME BACK LATER PER SABINE [id number] JELANI V.LAB.[facility] [id number] METABOLIC [id number] 12:55:00* Test Item Value Reference Range Comments SODIUM (test code=NA) 142 mmol/L 136-145 POTASSIUM (test code=K) 4.6 mmol/L 3.5-5.1 CHLORIDE (test code=CL) 111.0 mmol/L 98-107 CARBON DIOXIDE (test code=CO2) mmol/L 21-32 ANION GAP (test code=GAP) 10-20 GLUCOSE (test code=GLU) mg/dL 74-106 BLOOD UREA NITROGEN (test code=BUN) mg/dL 7-18 GLOMERULAR FILTRATION RATE (test code=GFR) mL/min >=60 CREATININE (test code=CREAT) mg/dL 0.55-1.02 BUN/CREATININE RATIO (test code=BUN/CREA) 10-20 CALCIUM (test code=CA) mg/dL 8.5-10.1 COME BACK LATER PER SABINE [id number] JELANI TayLAB.KP2 03/25/[id number] W/MANUAL DIFF 2019-03-25 12:45:00* Test Item Value Reference Range Comments WHITE BLOOD CELL (test code=WBC) 6.4 K/mm3 4.5-12.5 RED BLOOD CELL (test code=RBC) 2.36 mill/mm3 3.7-5.2 HEMOGLOBIN (test code=HGB) 6.6 gram/dL 11.5-15.5 HEMATOCRIT (test code=HCT) 22.2 % 36.0-46.0 MEAN CELL VOLUME (test code=MCV) 94.1 fL 80-98 MEAN CELL HGB (test code=MCH) 28.0 picogram 27.0-33.0 MEAN CELL HGB CONCETRATION (test code=MCHC) 29.7 gram/dL 33.0-36.0 RED CELL DISTRIBUTION WIDTH (test code=RDW) 18.6 % 11.6-16.2 RED CELL DISTRIBUTION WIDTH SD (test code=RDW-SD) 62.8 fL 37.0-51.0 PLATELET COUNT (test code=PLT) 64 K/mm3 150-450 MEAN PLATELET VOLUME (test code=MPV) 11.5 fL 6.7-11.0 IMMATURE GRANULOCYTE % (test code=IG%) 6.8 % 0.0-5.0 "The appearance of immature granulocytes (myelocytes,pro-myelocytes, meta-myelocytes) in the peripheral blood ofnon- individuals can indicate a response toinfection, inflammation, or other stimulus to the bonemarrow" NUCLEATED RBC % (test code=NRBC%) 0.3 % 0-0 NEUTROPHIL # (test code=NT#) 5.42 K/mm3 1.8-7.7 IMMATURE GRANULOCYTE # (test code=IG#) 0.43 x10 3/uL 0-0.03 LYMPHOCYTE # (test code=LY#) 0.31 K/mm3 1.0-5.0 MONOCYTE # (test code=MO#) 0.18 K/mm3 0-0.8 EOSINOPHIL # (test code=EO#) 0.00 K/mm3 0.0-0.5 BASOPHIL # (test code=BA#) 0.01 K/mm3 0.0-0.2 NUCLEATED RBC # (test code=NRBC#) 0.02 K/mm3 0.0-0.1 MANUAL DIFF REQUIRED (test code=MDIFF) YES STAIN ACCEPTABILITY (test code=STN ACCEPTABLE) TOTAL CELLS COUNTED (test code=TCC) #CELLS SEGMENTED NEUTROPHILS (test code=SEG) % 39-69 LYMPHOCYTE (test code=LYMPH) % 25-55 MONOCYTE (test code=MON) % 0-10 EOSINOPHIL (test code=EOS) % 0.0-5.0 CABOT RINGS (test code=CAB) MORPHOLOGY COMMENT (test code=MOC) PLATELET ESTIMATE (test code=PLTEST) PLATELET MORPHOLOGY (test code=PLTMORPH) PER SABINE PALOMARES [id number] COME BACK LATER V.LAB.KP2 03/25/[id number] W/MANUAL DIFF 2019-03-25 12:45:00* Test Item Value Reference Range Comments WHITE BLOOD CELL (test code=WBC) 6.4 K/mm3 4.5-12.5 RED BLOOD CELL (test code=RBC) 2.36 mill/mm3 3.7-5.2 HEMOGLOBIN (test code=HGB) 6.6 gram/dL 11.5-15.5 HEMATOCRIT (test code=HCT) 22.2 % 36.0-46.0 MEAN CELL VOLUME (test code=MCV) 94.1 fL 80-98 MEAN CELL HGB (test code=MCH) 28.0 picogram 27.0-33.0 MEAN CELL HGB CONCETRATION (test code=MCHC) 29.7 gram/dL 33.0-36.0 RED CELL DISTRIBUTION WIDTH (test code=RDW) 18.6 % 11.6-16.2 RED CELL DISTRIBUTION WIDTH SD (test code=RDW-SD) 62.8 fL 37.0-51.0 PLATELET COUNT (test code=PLT) 64 K/mm3 150-450 MEAN PLATELET VOLUME (test code=MPV) 11.5 fL 6.7-11.0 IMMATURE GRANULOCYTE % (test code=IG%) 6.8 % 0.0-5.0 "The appearance of immature granulocytes (myelocytes,pro-myelocytes, meta-myelocytes) in the peripheral blood ofnon- individuals can indicate a response toinfection, inflammation, or other stimulus to the bonemarrow" NUCLEATED RBC % (test code=NRBC%) 0.3 % 0-0 NEUTROPHIL # (test code=NT#) 5.42 K/mm3 1.8-7.7 IMMATURE GRANULOCYTE # (test code=IG#) 0.43 x10 3/uL 0-0.03 LYMPHOCYTE # (test code=LY#) 0.31 K/mm3 1.0-5.0 MONOCYTE # (test code=MO#) 0.18 K/mm3 0-0.8 EOSINOPHIL # (test code=EO#) 0.00 K/mm3 0.0-0.5 BASOPHIL # (test code=BA#) 0.01 K/mm3 0.0-0.2 NUCLEATED RBC # (test code=NRBC#) 0.02 K/mm3 0.0-0.1 MANUAL DIFF REQUIRED (test code=MDIFF) YES STAIN ACCEPTABILITY (test code=STN ACCEPTABLE) TOTAL CELLS COUNTED (test code=TCC) #CELLS SEGMENTED NEUTROPHILS (test code=SEG) % 39-69 LYMPHOCYTE (test code=LYMPH) % 25-55 MONOCYTE (test code=MON) % 0-10 EOSINOPHIL (test code=EOS) % 0.0-5.0 CABOT RINGS (test code=CAB) MORPHOLOGY COMMENT (test code=MOC) PLATELET ESTIMATE (test code=PLTEST) PLATELET MORPHOLOGY (test code=PLTMORPH) PER SABINE PALOMARES [id number] COME BACK LATER V.LAB.KP 03/25/[id number] W/MANUAL DIFF 2019-03-25 12:45:00* Test Item Value Reference Range Comments WHITE BLOOD CELL (test code=WBC) 6.4 K/mm3 4.5-12.5 RED BLOOD CELL (test code=RBC) 2.36 mill/mm3 3.7-5.2 HEMOGLOBIN (test code=HGB) 6.6 gram/dL 11.5-15.5 HEMATOCRIT (test code=HCT) 22.2 % 36.0-46.0 MEAN CELL VOLUME (test code=MCV) 94.1 fL 80-98 MEAN CELL HGB (test code=MCH) 28.0 picogram 27.0-33.0 MEAN CELL HGB CONCETRATION (test code=MCHC) 29.7 gram/dL 33.0-36.0 RED CELL DISTRIBUTION WIDTH (test code=RDW) 18.6 % 11.6-16.2 RED CELL DISTRIBUTION WIDTH SD (test code=RDW-SD) 62.8 fL 37.0-51.0 PLATELET COUNT (test code=PLT) 64 K/mm3 150-450 MEAN PLATELET VOLUME (test code=MPV) 11.5 fL 6.7-11.0 IMMATURE GRANULOCYTE % (test code=IG%) 6.8 % 0.0-5.0 "The appearance of immature granulocytes (myelocytes,pro-myelocytes, meta-myelocytes) in the peripheral blood ofnon- individuals can indicate a response toinfection, inflammation, or other stimulus to the bonemarrow" NUCLEATED RBC % (test code=NRBC%) 0.3 % 0-0 NEUTROPHIL # (test code=NT#) 5.42 K/mm3 1.8-7.7 IMMATURE GRANULOCYTE # (test code=IG#) 0.43 x10 3/uL 0-0.03 LYMPHOCYTE # (test code=LY#) 0.31 K/mm3 1.0-5.0 MONOCYTE # (test code=MO#) 0.18 K/mm3 0-0.8 EOSINOPHIL # (test code=EO#) 0.00 K/mm3 0.0-0.5 BASOPHIL # (test code=BA#) 0.01 K/mm3 0.0-0.2 NUCLEATED RBC # (test code=NRBC#) 0.02 K/mm3 0.0-0.1 MANUAL DIFF REQUIRED (test code=MDIFF) YES STAIN ACCEPTABILITY (test code=STN ACCEPTABLE) TOTAL CELLS COUNTED (test code=TCC) #CELLS SEGMENTED NEUTROPHILS (test code=SEG) % 39-69 LYMPHOCYTE (test code=LYMPH) % 25-55 MONOCYTE (test code=MON) % 0-10 EOSINOPHIL (test code=EOS) % 0.0-5.0 MORPHOLOGY COMMENT (test code=MOC) PLATELET ESTIMATE (test code=PLTEST) PLATELET MORPHOLOGY (test code=PLTMORPH) PER SBAINE PALOMARES [id number] COME BACK LATER V.LAB.KP2 03/25/[id number] W/MANUAL DIFF 2019-03-25 12:45:00* Test Item Value Reference Range Comments WHITE BLOOD CELL (test code=WBC) 6.4 K/mm3 4.5-12.5 RED BLOOD CELL (test code=RBC) 2.36 mill/mm3 3.7-5.2 HEMOGLOBIN (test code=HGB) 6.6 gram/dL 11.5-15.5 HEMATOCRIT (test code=HCT) 22.2 % 36.0-46.0 MEAN CELL VOLUME (test code=MCV) 94.1 fL 80-98 MEAN CELL HGB (test code=MCH) 28.0 picogram 27.0-33.0 MEAN CELL HGB CONCETRATION (test code=MCHC) 29.7 gram/dL 33.0-36.0 RED CELL DISTRIBUTION WIDTH (test code=RDW) 18.6 % 11.6-16.2 RED CELL DISTRIBUTION WIDTH SD (test code=RDW-SD) 62.8 fL 37.0-51.0 PLATELET COUNT (test code=PLT) 64 K/mm3 150-450 MEAN PLATELET VOLUME (test code=MPV) 11.5 fL 6.7-11.0 IMMATURE GRANULOCYTE % (test code=IG%) 6.8 % 0.0-5.0 "The appearance of immature granulocytes (myelocytes,pro-myelocytes, meta-myelocytes) in the peripheral blood ofnon- individuals can indicate a response toinfection, inflammation, or other stimulus to the bonemarrow" NUCLEATED RBC % (test code=NRBC%) 0.3 % 0-0 NEUTROPHIL # (test code=NT#) 5.42 K/mm3 1.8-7.7 IMMATURE GRANULOCYTE # (test code=IG#) 0.43 x10 3/uL 0-0.03 LYMPHOCYTE # (test code=LY#) 0.31 K/mm3 1.0-5.0 MONOCYTE # (test code=MO#) 0.18 K/mm3 0-0.8 EOSINOPHIL # (test code=EO#) 0.00 K/mm3 0.0-0.5 BASOPHIL # (test code=BA#) 0.01 K/mm3 0.0-0.2 NUCLEATED RBC # (test code=NRBC#) 0.02 K/mm3 0.0-0.1 MANUAL DIFF REQUIRED (test code=MDIFF) YES STAIN ACCEPTABILITY (test code=STN ACCEPTABLE) TOTAL CELLS COUNTED (test code=TCC) #CELLS SEGMENTED NEUTROPHILS (test code=SEG) % 39-69 LYMPHOCYTE (test code=LYMPH) % 25-55 MONOCYTE (test code=MON) % 0-10 MORPHOLOGY COMMENT (test code=MOC) PLATELET ESTIMATE (test code=PLTEST) PLATELET MORPHOLOGY (test code=PLTMORPH) PER SABINE PALOMARES [id number] COME BACK LATER V.LAB.KP2 03/25/[id number] W/MANUAL DIFF 2019-03-25 12:45:00* Test Item Value Reference Range Comments WHITE BLOOD CELL (test code=WBC) 6.4 K/mm3 4.5-12.5 RED BLOOD CELL (test code=RBC) 2.36 mill/mm3 3.7-5.2 HEMOGLOBIN (test code=HGB) 6.6 gram/dL 11.5-15.5 HEMATOCRIT (test code=HCT) 22.2 % 36.0-46.0 MEAN CELL VOLUME (test code=MCV) 94.1 fL 80-98 MEAN CELL HGB (test code=MCH) 28.0 picogram 27.0-33.0 MEAN CELL HGB CONCETRATION (test code=MCHC) 29.7 gram/dL 33.0-36.0 RED CELL DISTRIBUTION WIDTH (test code=RDW) 18.6 % 11.6-16.2 RED CELL DISTRIBUTION WIDTH SD (test code=RDW-SD) 62.8 fL 37.0-51.0 PLATELET COUNT (test code=PLT) 64 K/mm3 150-450 MEAN PLATELET VOLUME (test code=MPV) 11.5 fL 6.7-11.0 IMMATURE GRANULOCYTE % (test code=IG%) 6.8 % 0.0-5.0 "The appearance of immature granulocytes (myelocytes,pro-myelocytes, meta-myelocytes) in the peripheral blood ofnon- individuals can indicate a response toinfection, inflammation, or other stimulus to the bonemarrow" NUCLEATED RBC % (test code=NRBC%) 0.3 % 0-0 NEUTROPHIL # (test code=NT#) 5.42 K/mm3 1.8-7.7 IMMATURE GRANULOCYTE # (test code=IG#) 0.43 x10 3/uL 0-0.03 LYMPHOCYTE # (test code=LY#) 0.31 K/mm3 1.0-5.0 MONOCYTE # (test code=MO#) 0.18 K/mm3 0-0.8 EOSINOPHIL # (test code=EO#) 0.00 K/mm3 0.0-0.5 BASOPHIL # (test code=BA#) 0.01 K/mm3 0.0-0.2 NUCLEATED RBC # (test code=NRBC#) 0.02 K/mm3 0.0-0.1 MANUAL DIFF REQUIRED (test code=MDIFF) YES STAIN ACCEPTABILITY (test code=STN ACCEPTABLE) TOTAL CELLS COUNTED (test code=TCC) #CELLS SEGMENTED NEUTROPHILS (test code=SEG) % 39-69 LYMPHOCYTE (test code=LYMPH) % 25-55 MONOCYTE (test code=MON) % 0-10 EOSINOPHIL (test code=EOS) % 0.0-5.0 CABOT RINGS (test code=CAB) MORPHOLOGY COMMENT (test code=MOC) PLATELET ESTIMATE (test code=PLTEST) PLATELET MORPHOLOGY (test code=PLTMORPH) PER SABINE PALOMARES [id number] COME BACK LATER V.LAB.[facility] 03/25/[id number] W/AUTO DIFF 2019-03-25 00:36:00* Test Item Value Reference Range Comments WHITE BLOOD CELL (test code=WBC) 6.5 K/mm3 4.5-12.5 RED BLOOD CELL (test code=RBC) 2.44 mill/mm3 3.7-5.2 HEMOGLOBIN (test code=HGB) 6.9 gram/dL 11.5-15.5 HEMATOCRIT (test code=HCT) 23.1 % 36.0-46.0 MEAN CELL VOLUME (test code=MCV) 94.7 fL 80-98 MEAN CELL HGB (test code=MCH) 28.3 picogram 27.0-33.0 MEAN CELL HGB CONCETRATION (test code=MCHC) 29.9 gram/dL 33.0-36.0 RED CELL DISTRIBUTION WIDTH (test code=RDW) 18.7 % 11.6-16.2 RED CELL DISTRIBUTION WIDTH SD (test code=RDW-SD) 64.4 fL 37.0-51.0 PLATELET COUNT (test code=PLT) 81 K/mm3 150-450 MEAN PLATELET VOLUME (test code=MPV) 12.3 fL 6.7-11.0 NEUTROPHIL % (test code=NT%) 86.6 % 39.0-69.0 IMMATURE GRANULOCYTE % (test code=IG%) 5.1 % 0.0-5.0 "The appearance of immature granulocytes (myelocytes,pro-myelocytes, meta-myelocytes) in the peripheral blood ofnon- individuals can indicate a response toinfection, inflammation, or other stimulus to the bonemarrow" LYMPHOCYTE % (test code=LY%) 4.6 % 25.0-55.0 MONOCYTE % (test code=MO%) 3.7 % 0.0-10.0 EOSINOPHIL % (test code=EO%) 0.0 % 0.0-5.0 BASOPHIL % (test code=BA%) 0.0 % 0.0-1.0 NUCLEATED RBC % (test code=NRBC%) 0.0 % 0-0 NEUTROPHIL # (test code=NT#) 5.61 K/mm3 1.8-7.7 IMMATURE GRANULOCYTE # (test code=IG#) 0.33 x10 3/uL 0-0.03 LYMPHOCYTE # (test code=LY#) 0.30 K/mm3 1.0-5.0 MONOCYTE # (test code=MO#) 0.24 K/mm3 0-0.8 EOSINOPHIL # (test code=EO#) 0.00 K/mm3 0.0-0.5 BASOPHIL # (test code=BA#) 0.00 K/mm3 0.0-0.2 NUCLEATED RBC # (test code=NRBC#) 0.00 K/mm3 0.0-0.1 MANUAL DIFF REQUIRED (test code=MDIFF) NO, ONLY SCAN NEEDED DIFFERENTIAL [id number] 00:36:00* Test Item Value Reference Range Comments STAIN ACCEPTABILITY (test code=STN ACCEPTABLE) STAIN ACCEPTABLE HYPOCHROMIA (test code=HYPO) 1+ POIKILOCYTOSIS (test code=POIK) 1+ PLATELET ESTIMATE (test code=PLTEST) DECREASED PLATELET MORPHOLOGY (test code=PLTMORPH) NORMAL BASIC METABOLIC [id number] 15:39:00* Test Item Value Reference Range Comments SODIUM (test code=NA) 142 mmol/L 136-145 POTASSIUM (test code=K) 4.5 mmol/L 3.5-5.1 CHLORIDE (test code=CL) 109.0 mmol/L 98-107 CARBON DIOXIDE (test code=CO2) 21.0 mmol/L 21-32 ANION GAP (test code=GAP) 16.5 10-20 GLUCOSE (test code=GLU) 216 mg/dL 74-106 BLOOD UREA NITROGEN (test code=BUN) 70 mg/dL 7-18 GLOMERULAR FILTRATION RATE (test code=GFR) 20 mL/min >=60 Estimated GFR by using Modified MDRD formula.Chronic kidney disease is defined as either kidney damageor GFR <60 mL/min/1.73 m2 for >3 months. CREATININE (test code=CREAT) 2.50 mg/dL 0.55-1.02 Note change in reference range due to change in reagent. BUN/CREATININE RATIO (test code=BUN/CREA) 27.7 10-20 CALCIUM (test code=CA) 8.2 mg/dL 8.5-10.1 CBC W/AUTO [id number] 15:30:00* Test Item Value Reference Range Comments WHITE BLOOD CELL (test code=WBC) 6.5 K/mm3 4.5-12.5 RED BLOOD CELL (test code=RBC) 2.44 mill/mm3 3.7-5.2 HEMOGLOBIN (test code=HGB) 6.9 gram/dL 11.5-15.5 HEMATOCRIT (test code=HCT) 23.1 % 36.0-46.0 MEAN CELL VOLUME (test code=MCV) 94.7 fL 80-98 MEAN CELL HGB (test code=MCH) 28.3 picogram 27.0-33.0 MEAN CELL HGB CONCETRATION (test code=MCHC) 29.9 gram/dL 33.0-36.0 RED CELL DISTRIBUTION WIDTH (test code=RDW) 18.7 % 11.6-16.2 RED CELL DISTRIBUTION WIDTH SD (test code=RDW-SD) 64.4 fL 37.0-51.0 PLATELET COUNT (test code=PLT) 81 K/mm3 150-450 MEAN PLATELET VOLUME (test code=MPV) 12.3 fL 6.7-11.0 NEUTROPHIL % (test code=NT%) 86.6 % 39.0-69.0 IMMATURE GRANULOCYTE % (test code=IG%) 5.1 % 0.0-5.0 "The appearance of immature granulocytes (myelocytes,pro-myelocytes, meta-myelocytes) in the peripheral blood ofnon- individuals can indicate a response toinfection, inflammation, or other stimulus to the bonemarrow" LYMPHOCYTE % (test code=LY%) 4.6 % 25.0-55.0 MONOCYTE % (test code=MO%) 3.7 % 0.0-10.0 EOSINOPHIL % (test code=EO%) 0.0 % 0.0-5.0 BASOPHIL % (test code=BA%) 0.0 % 0.0-1.0 NUCLEATED RBC % (test code=NRBC%) 0.0 % 0-0 NEUTROPHIL # (test code=NT#) 5.61 K/mm3 1.8-7.7 IMMATURE GRANULOCYTE # (test code=IG#) 0.33 x10 3/uL 0-0.03 LYMPHOCYTE # (test code=LY#) 0.30 K/mm3 1.0-5.0 MONOCYTE # (test code=MO#) 0.24 K/mm3 0-0.8 EOSINOPHIL # (test code=EO#) 0.00 K/mm3 0.0-0.5 BASOPHIL # (test code=BA#) 0.00 K/mm3 0.0-0.2 NUCLEATED RBC # (test code=NRBC#) 0.00 K/mm3 0.0-0.1 MANUAL DIFF REQUIRED (test code=MDIFF) NO, ONLY SCAN NEEDED DIFFERENTIAL [id number] 15:30:00* Test Item Value Reference Range Comments STAIN ACCEPTABILITY (test code=STN ACCEPTABLE) CABOT RINGS (test code=CAB) MORPHOLOGY COMMENT (test code=MOC) PLATELET ESTIMATE (test code=PLTEST) PLATELET MORPHOLOGY (test code=PLTMORPH) CBC W/AUTO [id number] 15:30:00* Test Item Value Reference Range Comments WHITE BLOOD CELL (test code=WBC) 6.5 K/mm3 4.5-12.5 RED BLOOD CELL (test code=RBC) 2.44 mill/mm3 3.7-5.2 HEMOGLOBIN (test code=HGB) 6.9 gram/dL 11.5-15.5 HEMATOCRIT (test code=HCT) 23.1 % 36.0-46.0 MEAN CELL VOLUME (test code=MCV) 94.7 fL 80-98 MEAN CELL HGB (test code=MCH) 28.3 picogram 27.0-33.0 MEAN CELL HGB CONCETRATION (test code=MCHC) 29.9 gram/dL 33.0-36.0 RED CELL DISTRIBUTION WIDTH (test code=RDW) 18.7 % 11.6-16.2 RED CELL DISTRIBUTION WIDTH SD (test code=RDW-SD) 64.4 fL 37.0-51.0 PLATELET COUNT (test code=PLT) 81 K/mm3 150-450 MEAN PLATELET VOLUME (test code=MPV) 12.3 fL 6.7-11.0 NEUTROPHIL % (test code=NT%) 86.6 % 39.0-69.0 IMMATURE GRANULOCYTE % (test code=IG%) 5.1 % 0.0-5.0 "The appearance of immature granulocytes (myelocytes,pro-myelocytes, meta-myelocytes) in the peripheral blood ofnon- individuals can indicate a response toinfection, inflammation, or other stimulus to the bonemarrow" LYMPHOCYTE % (test code=LY%) 4.6 % 25.0-55.0 MONOCYTE % (test code=MO%) 3.7 % 0.0-10.0 EOSINOPHIL % (test code=EO%) 0.0 % 0.0-5.0 BASOPHIL % (test code=BA%) 0.0 % 0.0-1.0 NUCLEATED RBC % (test code=NRBC%) 0.0 % 0-0 NEUTROPHIL # (test code=NT#) 5.61 K/mm3 1.8-7.7 IMMATURE GRANULOCYTE # (test code=IG#) 0.33 x10 3/uL 0-0.03 LYMPHOCYTE # (test code=LY#) 0.30 K/mm3 1.0-5.0 MONOCYTE # (test code=MO#) 0.24 K/mm3 0-0.8 EOSINOPHIL # (test code=EO#) 0.00 K/mm3 0.0-0.5 BASOPHIL # (test code=BA#) 0.00 K/mm3 0.0-0.2 NUCLEATED RBC # (test code=NRBC#) 0.00 K/mm3 0.0-0.1 MANUAL DIFF REQUIRED (test code=MDIFF) NO, ONLY SCAN NEEDED DIFFERENTIAL [id number] 15:30:00* Test Item Value Reference Range Comments STAIN ACCEPTABILITY (test code=STN ACCEPTABLE) CABOT RINGS (test code=CAB) MORPHOLOGY COMMENT (test code=MOC) PLATELET ESTIMATE (test code=PLTEST) PLATELET MORPHOLOGY (test code=PLTMORPH) CBC W/AUTO [id number] 15:30:00* Test Item Value Reference Range Comments WHITE BLOOD CELL (test code=WBC) 6.5 K/mm3 4.5-12.5 RED BLOOD CELL (test code=RBC) 2.44 mill/mm3 3.7-5.2 HEMOGLOBIN (test code=HGB) 6.9 gram/dL 11.5-15.5 HEMATOCRIT (test code=HCT) 23.1 % 36.0-46.0 MEAN CELL VOLUME (test code=MCV) 94.7 fL 80-98 MEAN CELL HGB (test code=MCH) 28.3 picogram 27.0-33.0 MEAN CELL HGB CONCETRATION (test code=MCHC) 29.9 gram/dL 33.0-36.0 RED CELL DISTRIBUTION WIDTH (test code=RDW) 18.7 % 11.6-16.2 RED CELL DISTRIBUTION WIDTH SD (test code=RDW-SD) 64.4 fL 37.0-51.0 PLATELET COUNT (test code=PLT) 81 K/mm3 150-450 MEAN PLATELET VOLUME (test code=MPV) 12.3 fL 6.7-11.0 NEUTROPHIL % (test code=NT%) 86.6 % 39.0-69.0 IMMATURE GRANULOCYTE % (test code=IG%) 5.1 % 0.0-5.0 "The appearance of immature granulocytes (myelocytes,pro-myelocytes, meta-myelocytes) in the peripheral blood ofnon- individuals can indicate a response toinfection, inflammation, or other stimulus to the bonemarrow" LYMPHOCYTE % (test code=LY%) 4.6 % 25.0-55.0 MONOCYTE % (test code=MO%) 3.7 % 0.0-10.0 EOSINOPHIL % (test code=EO%) 0.0 % 0.0-5.0 BASOPHIL % (test code=BA%) 0.0 % 0.0-1.0 NUCLEATED RBC % (test code=NRBC%) 0.0 % 0-0 NEUTROPHIL # (test code=NT#) 5.61 K/mm3 1.8-7.7 IMMATURE GRANULOCYTE # (test code=IG#) 0.33 x10 3/uL 0-0.03 LYMPHOCYTE # (test code=LY#) 0.30 K/mm3 1.0-5.0 MONOCYTE # (test code=MO#) 0.24 K/mm3 0-0.8 EOSINOPHIL # (test code=EO#) 0.00 K/mm3 0.0-0.5 BASOPHIL # (test code=BA#) 0.00 K/mm3 0.0-0.2 NUCLEATED RBC # (test code=NRBC#) 0.00 K/mm3 0.0-0.1 MANUAL DIFF REQUIRED (test code=MDIFF) NO, ONLY SCAN NEEDED DIFFERENTIAL [id number] 15:30:00* Test Item Value Reference Range Comments STAIN ACCEPTABILITY (test code=STN ACCEPTABLE) MORPHOLOGY COMMENT (test code=MOC) PLATELET ESTIMATE (test code=PLTEST) PLATELET MORPHOLOGY (test code=PLTMORPH) CBC W/AUTO [id number] 15:30:00* Test Item Value Reference Range Comments WHITE BLOOD CELL (test code=WBC) 6.5 K/mm3 4.5-12.5 RED BLOOD CELL (test code=RBC) 2.44 mill/mm3 3.7-5.2 HEMOGLOBIN (test code=HGB) 6.9 gram/dL 11.5-15.5 HEMATOCRIT (test code=HCT) 23.1 % 36.0-46.0 MEAN CELL VOLUME (test code=MCV) 94.7 fL 80-98 MEAN CELL HGB (test code=MCH) 28.3 picogram 27.0-33.0 MEAN CELL HGB CONCETRATION (test code=MCHC) 29.9 gram/dL 33.0-36.0 RED CELL DISTRIBUTION WIDTH (test code=RDW) 18.7 % 11.6-16.2 RED CELL DISTRIBUTION WIDTH SD (test code=RDW-SD) 64.4 fL 37.0-51.0 PLATELET COUNT (test code=PLT) 81 K/mm3 150-450 MEAN PLATELET VOLUME (test code=MPV) 12.3 fL 6.7-11.0 NEUTROPHIL % (test code=NT%) 86.6 % 39.0-69.0 IMMATURE GRANULOCYTE % (test code=IG%) 5.1 % 0.0-5.0 "The appearance of immature granulocytes (myelocytes,pro-myelocytes, meta-myelocytes) in the peripheral blood ofnon- individuals can indicate a response toinfection, inflammation, or other stimulus to the bon[place]" LYMPHOCYTE % (test code=LY%) 4.6 % 25.0-55.0 MONOCYTE % (test code=MO%) 3.7 % 0.0-10.0 EOSINOPHIL % (test code=EO%) 0.0 % 0.0-5.0 BASOPHIL % (test code=BA%) 0.0 % 0.0-1.0 NUCLEATED RBC % (test code=NRBC%) 0.0 % 0-0 NEUTROPHIL # (test code=NT#) 5.61 K/mm3 1.8-7.7 IMMATURE GRANULOCYTE # (test code=IG#) 0.33 x10 3/uL 0-0.03 LYMPHOCYTE # (test code=LY#) 0.30 K/mm3 1.0-5.0 MONOCYTE # (test code=MO#) 0.24 K/mm3 0-0.8 EOSINOPHIL # (test code=EO#) 0.00 K/mm3 0.0-0.5 BASOPHIL # (test code=BA#) 0.00 K/mm3 0.0-0.2 NUCLEATED RBC # (test code=NRBC#) 0.00 K/mm3 0.0-0.1 MANUAL DIFF REQUIRED (test code=MDIFF) NO, ONLY SCAN NEEDED DIFFERENTIAL [id number] 15:30:00* Test Item Value Reference Range Comments STAIN ACCEPTABILITY (test code=STN ACCEPTABLE) CABOT RINGS (test code=CAB) MORPHOLOGY COMMENT (test code=MOC) PLATELET ESTIMATE (test code=PLTEST) PLATELET MORPHOLOGY (test code=PLTMORPH) BASIC METABOLIC [id number] 11:09:00* Test Item Value Reference Range Comments SODIUM (test code=NA) 146 mmol/L 136-145 POTASSIUM (test code=K) 5.0 mmol/L 3.5-5.1 CHLORIDE (test code=CL) 117.0 mmol/L 98-107 CARBON DIOXIDE (test code=CO2) 19.0 mmol/L 21-32 ANION GAP (test code=GAP) 15.0 10-20 GLUCOSE (test code=GLU) 155 mg/dL 74-106 BLOOD UREA NITROGEN (test code=BUN) 63 mg/dL 7-18 GLOMERULAR FILTRATION RATE (test code=GFR) 20 mL/min >=60 Estimated GFR by using Modified MDRD formula.Chronic kidney disease is defined as either kidney damageor GFR <60 mL/min/1.73 m2 for >3 months. CREATININE (test code=CREAT) 2.50 mg/dL 0.55-1.02 Note change in reference range due to change in reagent. BUN/CREATININE RATIO (test code=BUN/CREA) 24.9 10-20 CALCIUM (test code=CA) 8.5 mg/dL 8.5-10.1 PATIENT DOES NOT WANT TO BE DISTURB UNTIL [facility] R N SOSA NOTIFIED MD V.LAB.EP 03/23/19 0656.BASIC METABOLIC [id number] 11:08:00* Test Item Value Reference Range Comments SODIUM (test code=NA) 146 mmol/L 136-145 POTASSIUM (test code=K) 5.0 mmol/L 3.5-5.1 CHLORIDE (test code=CL) 117.0 mmol/L 98-107 CARBON DIOXIDE (test code=CO2) mmol/L 21-32 ANION GAP (test code=GAP) 10-20 GLUCOSE (test code=GLU) mg/dL 74-106 BLOOD UREA NITROGEN (test code=BUN) mg/dL 7-18 GLOMERULAR FILTRATION RATE (test code=GFR) mL/min >=60 CREATININE (test code=CREAT) mg/dL 0.55-1.02 BUN/CREATININE RATIO (test code=BUN/CREA) 10-20 CALCIUM (test code=CA) mg/dL 8.5-10.1 PATIENT DOES NOT WANT TO BE DISTURB UNTIL [facility] R N SOSA NOTIFIED MD V.LAB.EP 03/23/19 0656.BASIC METABOLIC [id number] 20:05:00* Test Item Value Reference Range Comments SODIUM (test code=NA) 146 mmol/L 136-145 POTASSIUM (test code=K) 5.3 mmol/L 3.5-5.1 CHLORIDE (test code=CL) 119.0 mmol/L 98-107 CARBON DIOXIDE (test code=CO2) 15.0 mmol/L 21-32 ANION GAP (test code=GAP) 17.3 10-20 GLUCOSE (test code=GLU) 145 mg/dL 74-106 BLOOD UREA NITROGEN (test code=BUN) 60 mg/dL 7-18 GLOMERULAR FILTRATION RATE (test code=GFR) 22 mL/min >=60 Estimated GFR by using Modified MDRD formula.Chronic kidney disease is defined as either kidney damageor GFR <60 mL/min/1.73 m2 for >3 months. CREATININE (test code=CREAT) 2.30 mg/dL 0.55-1.02 Note change in reference range due to change in reagent. BUN/CREATININE RATIO (test code=BUN/CREA) 26.1 10-20 CALCIUM (test code=CA) 8.9 mg/dL 8.5-10.1 PT REFUSED SPOKE TO RN [id number] V.LAB.SE 03/22/19 1528BASIC METABOLIC PANEL 2019-03-22 19:55:00* Test Item Value Reference Range Comments SODIUM (test code=NA) 146 mmol/L 136-145 POTASSIUM (test code=K) 5.3 mmol/L 3.5-5.1 CHLORIDE (test code=CL) 119.0 mmol/L 98-107 CARBON DIOXIDE (test code=CO2) mmol/L 21-32 ANION GAP (test code=GAP) 10-20 GLUCOSE (test code=GLU) mg/dL 74-106 BLOOD UREA NITROGEN (test code=BUN) mg/dL 7-18 GLOMERULAR FILTRATION RATE (test code=GFR) mL/min >=60 CREATININE (test code=CREAT) mg/dL 0.55-1.02 BUN/CREATININE RATIO (test code=BUN/CREA) 10-20 CALCIUM (test code=CA) 8.9 mg/dL 8.5-10.1 PT REFUSED SPOKE TO RN [id number] V.LAB.SE 03/22/19 1528- XR ABDOMEN AP 1 V 2019-03-22 16:05:00 FAX: Fabiana Melton MD [phone] [place]: B : [facility] FAX: Gray Luong MD Name: SIOBHAN BARBOSA [facility] : 1965 Age/S: 54/F [address] Unit #: [id number] Loc: V.2077 [place] [place] [address] Phys: Fabiana Drake MD Acct: [id number] Dis Date: Status: ADM IN PHONE #: [phone] Exam Date: 03/22/2019 1500 FAX #: [phone] Reason: URETERAL STENT EXAMS: CPT CODE: [id number] XR ABDOMEN AP 1 V 02558 HISTORY: Ureteral stent. COMPARISON: CT scan from October 24, 2018. Left double-J stent appears to be in good position. Multiple coarse calcifications on the left side measuring up to 1 cm in the lower pole region and up to 1.6 cm in the upper pole location. These are too numerous to count. No calcifications seen along the path of the stent. Vascular calcifications and gallstones. IVC filter towards the right of the L1 and L2 vertebral bodies. Constipation. DJD of the dorsal and lumbar spine and narrowed hip joints. IMPRESSION: Double-J stent appears to be in good position within the left collecting system. Multiple coarse calcifications overlapping with the left upper and lower pole calyx ranging in size between 1.1-1.6 cm suggestive of calyceal stones. Correlate with CT scan for definitive evaluation as clinically indicated. at 6318 Reported and signed by: Krystian Johnson M.D. CC: Fabiana Drake MD; Gray Knott Technologist: AODLFO VAZQUEZ RT(R); RT THEODORE(R) Trngard Date/Time/By: 03/22/2019 (7363) : By: [email or web address] Orig Print D/T: S: 0 03/22/2019 (3892) PAGE 1 Signed Re port BLOOD UREA [id number] 12:05:00* Test Item Value Reference Range Comments BLOOD UREA NITROGEN (test code=BUN) 65 mg/dL 7-18 RESULT VERIFIED BY REPEAT ANALYSIS [id number] 12:05:00* Test Item Value Reference Range Comments CREATININE (test code=CREAT) 2.30 mg/dL 0.55-1.02 Note change in reference range due to change in reagent. [id number] 12:02:00* Test Item Value Reference Range Comments VANCOMYCIN (test code=VANCO) 18.8 UG/ML 5.0-45.0 CBC W/MANUAL [id number] 13:21:00* Test Item Value Reference Range Comments WHITE BLOOD CELL (test code=WBC) 8.1 K/mm3 4.5-12.5 RED BLOOD CELL (test code=RBC) 2.87 mill/mm3 3.7-5.2 HEMOGLOBIN (test code=HGB) 8.0 gram/dL 11.5-15.5 HEMATOCRIT (test code=HCT) 27.3 % 36.0-46.0 MEAN CELL VOLUME (test code=MCV) 95.1 fL 80-98 MEAN CELL HGB (test code=MCH) 27.9 picogram 27.0-33.0 MEAN CELL HGB CONCETRATION (test code=MCHC) 29.3 gram/dL 33.0-36.0 RED CELL DISTRIBUTION WIDTH (test code=RDW) 19.0 % 11.6-16.2 RED CELL DISTRIBUTION WIDTH SD (test code=RDW-SD) 66.8 fL 37.0-51.0 PLATELET COUNT (test code=PLT) 92 K/mm3 150-450 MEAN PLATELET VOLUME (test code=MPV) 12.2 fL 6.7-11.0 IMMATURE GRANULOCYTE % (test code=IG%) 1.5 % 0.0-5.0 NUCLEATED RBC % (test code=NRBC%) 0.0 % 0-0 NEUTROPHIL # (test code=NT#) 7.44 K/mm3 1.8-7.7 IMMATURE GRANULOCYTE # (test code=IG#) 0.12 x10 3/uL 0-0.03 LYMPHOCYTE # (test code=LY#) 0.28 K/mm3 1.0-5.0 MONOCYTE # (test code=MO#) 0.27 K/mm3 0-0.8 EOSINOPHIL # (test code=EO#) 0.00 K/mm3 0.0-0.5 BASOPHIL # (test code=BA#) 0.00 K/mm3 0.0-0.2 NUCLEATED RBC # (test code=NRBC#) 0.00 K/mm3 0.0-0.1 MANUAL DIFF REQUIRED (test code=MDIFF) YES STAIN ACCEPTABILITY (test code=STN ACCEPTABLE) STAIN ACCEPTABLE TOTAL CELLS COUNTED (test code=TCC) 115 #CELLS SEGMENTED NEUTROPHILS (test code=SEG) 89.6 % 39-69 BAND NEUTROPHIL (test code=BAND) 7.8 % 0-10 LYMPHOCYTE (test code=LYMPH) 1.7 % 25-55 REACTIVE LYMPH (test code=RELYMPH) 0 % MONOCYTE (test code=MON) 0.9 % 0-10 EOSINOPHIL (test code=EOS) 0 % 0.0-5.0 BASOPHIL (test code=BASO) 0 % 0-1.0 METAMYELOCYTE (test code=META) 0 % 0-0 MYELOCYTE (test code=MYELO) 0 % 0.0-0.0 PROMYELOCYTE (test code=PROM) 0 % 0-0 ANISOCYTOSIS (test code=ANISO) 3+ MACROCYTOSIS (test code=MACR) 3+ PLATELET ESTIMATE (test code=PLTEST) DECREASED PLATELET MORPHOLOGY (test code=PLTMORPH) NORMAL IMMATURE FORMS (test code=IMMAT) 0 % 0-0 COMPREHENSIVE METABOLIC [id number] 13:02:00* Test Item Value Reference Range Comments SODIUM (test code=NA) 146 mmol/L 136-145 POTASSIUM (test code=K) 5.1 mmol/L 3.5-5.1 CHLORIDE (test code=CL) 119.0 mmol/L 98-107 CARBON DIOXIDE (test code=CO2) 17.0 mmol/L 21-32 ANION GAP (test code=GAP) 15.1 10-20 GLUCOSE (test code=GLU) 153 mg/dL 74-106 BLOOD UREA NITROGEN (test code=BUN) 54 mg/dL 7-18 GLOMERULAR FILTRATION RATE (test code=GFR) 22 mL/min >=60 Estimated GFR by using Modified MDRD formula.Chronic kidney disease is defined as either kidney damageor GFR <60 mL/min/1.73 m2 for >3 months. CREATININE (test code=CREAT) 2.30 mg/dL 0.55-1.02 Note change in reference range due to change in reagent. BUN/CREATININE RATIO (test code=BUN/CREA) 23.5 10-20 TOTAL PROTEIN (test code=PROT) 7.3 gram/dL 6.4-8.2 ALBUMIN (test code=ALB) 2.2 g/dL 3.4-5.0 GLOBULIN (test code=GLOB) 5.1 gram/dL 2.7-4.2 ALBUMIN/GLOBULIN RATIO (test code=A/G) 0.4 0.75-1.50 CALCIUM (test code=CA) 8.8 mg/dL 8.5-10.1 BILIRUBIN TOTAL (test code=BILT) 0.70 mg/dL 0.0-1.0 SGOT/AST (test code=AST) 34 IUnit/L 15-37 SGPT/ALT (test code=ALT) 41 IUnit/L 12-78 ALKALINE PHOSPHATASE TOTAL (test code=ALKP) 365 IUnit/L 45-117 Note change in reference range due to change in reagent. COMPREHENSIVE METABOLIC [id number] 12:52:00* Test Item Value Reference Range Comments SODIUM (test code=NA) 146 mmol/L 136-145 POTASSIUM (test code=K) 5.1 mmol/L 3.5-5.1 CHLORIDE (test code=CL) 119.0 mmol/L 98-107 CARBON DIOXIDE (test code=CO2) mmol/L 21-32 ANION GAP (test code=GAP) 10-20 GLUCOSE (test code=GLU) mg/dL 74-106 BLOOD UREA NITROGEN (test code=BUN) mg/dL 7-18 GLOMERULAR FILTRATION RATE (test code=GFR) mL/min >=60 CREATININE (test code=CREAT) mg/dL 0.55-1.02 BUN/CREATININE RATIO (test code=BUN/CREA) 10-20 TOTAL PROTEIN (test code=PROT) gram/dL 6.4-8.2 ALBUMIN (test code=ALB) g/dL 3.4-5.0 GLOBULIN (test code=GLOB) gram/dL 2.7-4.2 ALBUMIN/GLOBULIN RATIO (test code=A/G) 0.75-1.50 CALCIUM (test code=CA) mg/dL 8.5-10.1 BILIRUBIN TOTAL (test code=BILT) mg/dL 0.0-1.0 SGOT/AST (test code=AST) IUnit/L 15-37 SGPT/ALT (test code=ALT) IUnit/L 12-78 ALKALINE PHOSPHATASE TOTAL (test code=ALKP) IUnit/L 45-117 CBC W/MANUAL [id number] 12:37:00* Test Item Value Reference Range Comments WHITE BLOOD CELL (test code=WBC) 8.1 K/mm3 4.5-12.5 RED BLOOD CELL (test code=RBC) 2.87 mill/mm3 3.7-5.2 HEMOGLOBIN (test code=HGB) 8.0 gram/dL 11.5-15.5 HEMATOCRIT (test code=HCT) 27.3 % 36.0-46.0 MEAN CELL VOLUME (test code=MCV) 95.1 fL 80-98 MEAN CELL HGB (test code=MCH) 27.9 picogram 27.0-33.0 MEAN CELL HGB CONCETRATION (test code=MCHC) 29.3 gram/dL 33.0-36.0 RED CELL DISTRIBUTION WIDTH (test code=RDW) 19.0 % 11.6-16.2 RED CELL DISTRIBUTION WIDTH SD (test code=RDW-SD) 66.8 fL 37.0-51.0 PLATELET COUNT (test code=PLT) 92 K/mm3 150-450 MEAN PLATELET VOLUME (test code=MPV) 12.2 fL 6.7-11.0 IMMATURE GRANULOCYTE % (test code=IG%) 1.5 % 0.0-5.0 NUCLEATED RBC % (test code=NRBC%) 0.0 % 0-0 NEUTROPHIL # (test code=NT#) 7.44 K/mm3 1.8-7.7 IMMATURE GRANULOCYTE # (test code=IG#) 0.12 x10 3/uL 0-0.03 LYMPHOCYTE # (test code=LY#) 0.28 K/mm3 1.0-5.0 MONOCYTE # (test code=MO#) 0.27 K/mm3 0-0.8 EOSINOPHIL # (test code=EO#) 0.00 K/mm3 0.0-0.5 BASOPHIL # (test code=BA#) 0.00 K/mm3 0.0-0.2 NUCLEATED RBC # (test code=NRBC#) 0.00 K/mm3 0.0-0.1 MANUAL DIFF REQUIRED (test code=MDIFF) YES STAIN ACCEPTABILITY (test code=STN ACCEPTABLE) TOTAL CELLS COUNTED (test code=TCC) #CELLS SEGMENTED NEUTROPHILS (test code=SEG) % 39-69 LYMPHOCYTE (test code=LYMPH) % 25-55 MONOCYTE (test code=MON) % 0-10 EOSINOPHIL (test code=EOS) % 0.0-5.0 CABOT RINGS (test code=CAB) MORPHOLOGY COMMENT (test code=MOC) PLATELET ESTIMATE (test code=PLTEST) PLATELET MORPHOLOGY (test code=PLTMORPH) CBC W/MANUAL [id number] 12:37:00* Test Item Value Reference Range Comments WHITE BLOOD CELL (test code=WBC) 8.1 K/mm3 4.5-12.5 RED BLOOD CELL (test code=RBC) 2.87 mill/mm3 3.7-5.2 HEMOGLOBIN (test code=HGB) 8.0 gram/dL 11.5-15.5 HEMATOCRIT (test code=HCT) 27.3 % 36.0-46.0 MEAN CELL VOLUME (test code=MCV) 95.1 fL 80-98 MEAN CELL HGB (test code=MCH) 27.9 picogram 27.0-33.0 MEAN CELL HGB CONCETRATION (test code=MCHC) 29.3 gram/dL 33.0-36.0 RED CELL DISTRIBUTION WIDTH (test code=RDW) 19.0 % 11.6-16.2 RED CELL DISTRIBUTION WIDTH SD (test code=RDW-SD) 66.8 fL 37.0-51.0 PLATELET COUNT (test code=PLT) 92 K/mm3 150-450 MEAN PLATELET VOLUME (test code=MPV) 12.2 fL 6.7-11.0 IMMATURE GRANULOCYTE % (test code=IG%) 1.5 % 0.0-5.0 NUCLEATED RBC % (test code=NRBC%) 0.0 % 0-0 NEUTROPHIL # (test code=NT#) 7.44 K/mm3 1.8-7.7 IMMATURE GRANULOCYTE # (test code=IG#) 0.12 x10 3/uL 0-0.03 LYMPHOCYTE # (test code=LY#) 0.28 K/mm3 1.0-5.0 MONOCYTE # (test code=MO#) 0.27 K/mm3 0-0.8 EOSINOPHIL # (test code=EO#) 0.00 K/mm3 0.0-0.5 BASOPHIL # (test code=BA#) 0.00 K/mm3 0.0-0.2 NUCLEATED RBC # (test code=NRBC#) 0.00 K/mm3 0.0-0.1 MANUAL DIFF REQUIRED (test code=MDIFF) YES STAIN ACCEPTABILITY (test code=STN ACCEPTABLE) TOTAL CELLS COUNTED (test code=TCC) #CELLS SEGMENTED NEUTROPHILS (test code=SEG) % 39-69 LYMPHOCYTE (test code=LYMPH) % 25-55 MONOCYTE (test code=MON) % 0-10 EOSINOPHIL (test code=EOS) % 0.0-5.0 MORPHOLOGY COMMENT (test code=MOC) PLATELET ESTIMATE (test code=PLTEST) PLATELET MORPHOLOGY (test code=PLTMORPH) CBC W/MANUAL [id number] 12:37:00* Test Item Value Reference Range Comments WHITE BLOOD CELL (test code=WBC) 8.1 K/mm3 4.5-12.5 RED BLOOD CELL (test code=RBC) 2.87 mill/mm3 3.7-5.2 HEMOGLOBIN (test code=HGB) 8.0 gram/dL 11.5-15.5 HEMATOCRIT (test code=HCT) 27.3 % 36.0-46.0 MEAN CELL VOLUME (test code=MCV) 95.1 fL 80-98 MEAN CELL HGB (test code=MCH) 27.9 picogram 27.0-33.0 MEAN CELL HGB CONCETRATION (test code=MCHC) 29.3 gram/dL 33.0-36.0 RED CELL DISTRIBUTION WIDTH (test code=RDW) 19.0 % 11.6-16.2 RED CELL DISTRIBUTION WIDTH SD (test code=RDW-SD) 66.8 fL 37.0-51.0 PLATELET COUNT (test code=PLT) 92 K/mm3 150-450 MEAN PLATELET VOLUME (test code=MPV) 12.2 fL 6.7-11.0 IMMATURE GRANULOCYTE % (test code=IG%) 1.5 % 0.0-5.0 NUCLEATED RBC % (test code=NRBC%) 0.0 % 0-0 NEUTROPHIL # (test code=NT#) 7.44 K/mm3 1.8-7.7 IMMATURE GRANULOCYTE # (test code=IG#) 0.12 x10 3/uL 0-0.03 LYMPHOCYTE # (test code=LY#) 0.28 K/mm3 1.0-5.0 MONOCYTE # (test code=MO#) 0.27 K/mm3 0-0.8 EOSINOPHIL # (test code=EO#) 0.00 K/mm3 0.0-0.5 BASOPHIL # (test code=BA#) 0.00 K/mm3 0.0-0.2 NUCLEATED RBC # (test code=NRBC#) 0.00 K/mm3 0.0-0.1 MANUAL DIFF REQUIRED (test code=MDIFF) YES STAIN ACCEPTABILITY (test code=STN ACCEPTABLE) TOTAL CELLS COUNTED (test code=TCC) #CELLS SEGMENTED NEUTROPHILS (test code=SEG) % 39-69 LYMPHOCYTE (test code=LYMPH) % 25-55 MONOCYTE (test code=MON) % 0-10 MORPHOLOGY COMMENT (test code=MOC) PLATELET ESTIMATE (test code=PLTEST) PLATELET MORPHOLOGY (test code=PLTMORPH) CBC W/MANUAL [id number] 12:36:00* Test Item Value Reference Range Comments WHITE BLOOD CELL (test code=WBC) 8.1 K/mm3 4.5-12.5 RED BLOOD CELL (test code=RBC) 2.87 mill/mm3 3.7-5.2 HEMOGLOBIN (test code=HGB) 8.0 gram/dL 11.5-15.5 HEMATOCRIT (test code=HCT) 27.3 % 36.0-46.0 MEAN CELL VOLUME (test code=MCV) 95.1 fL 80-98 MEAN CELL HGB (test code=MCH) 27.9 picogram 27.0-33.0 MEAN CELL HGB CONCETRATION (test code=MCHC) 29.3 gram/dL 33.0-36.0 RED CELL DISTRIBUTION WIDTH (test code=RDW) 19.0 % 11.6-16.2 RED CELL DISTRIBUTION WIDTH SD (test code=RDW-SD) 66.8 fL 37.0-51.0 PLATELET COUNT (test code=PLT) 92 K/mm3 150-450 MEAN PLATELET VOLUME (test code=MPV) 12.2 fL 6.7-11.0 IMMATURE GRANULOCYTE % (test code=IG%) 1.5 % 0.0-5.0 NUCLEATED RBC % (test code=NRBC%) 0.0 % 0-0 NEUTROPHIL # (test code=NT#) 7.44 K/mm3 1.8-7.7 IMMATURE GRANULOCYTE # (test code=IG#) 0.12 x10 3/uL 0-0.03 LYMPHOCYTE # (test code=LY#) 0.28 K/mm3 1.0-5.0 MONOCYTE # (test code=MO#) 0.27 K/mm3 0-0.8 EOSINOPHIL # (test code=EO#) 0.00 K/mm3 0.0-0.5 BASOPHIL # (test code=BA#) 0.00 K/mm3 0.0-0.2 NUCLEATED RBC # (test code=NRBC#) 0.00 K/mm3 0.0-0.1 MANUAL DIFF REQUIRED (test code=MDIFF) YES STAIN ACCEPTABILITY (test code=STN ACCEPTABLE) TOTAL CELLS COUNTED (test code=TCC) #CELLS SEGMENTED NEUTROPHILS (test code=SEG) % 39-69 LYMPHOCYTE (test code=LYMPH) % 25-55 MONOCYTE (test code=MON) % 0-10 EOSINOPHIL (test code=EOS) % 0.0-5.0 CABOT RINGS (test code=CAB) MORPHOLOGY COMMENT (test code=MOC) PLATELET ESTIMATE (test code=PLTEST) PLATELET MORPHOLOGY (test code=PLTMORPH) CBC W/MANUAL [id number] 12:36:00* Test Item Value Reference Range Comments WHITE BLOOD CELL (test code=WBC) 8.1 K/mm3 4.5-12.5 RED BLOOD CELL (test code=RBC) 2.87 mill/mm3 3.7-5.2 HEMOGLOBIN (test code=HGB) 8.0 gram/dL 11.5-15.5 HEMATOCRIT (test code=HCT) 27.3 % 36.0-46.0 MEAN CELL VOLUME (test code=MCV) 95.1 fL 80-98 MEAN CELL HGB (test code=MCH) 27.9 picogram 27.0-33.0 MEAN CELL HGB CONCETRATION (test code=MCHC) 29.3 gram/dL 33.0-36.0 RED CELL DISTRIBUTION WIDTH (test code=RDW) 19.0 % 11.6-16.2 RED CELL DISTRIBUTION WIDTH SD (test code=RDW-SD) 66.8 fL 37.0-51.0 PLATELET COUNT (test code=PLT) 92 K/mm3 150-450 MEAN PLATELET VOLUME (test code=MPV) 12.2 fL 6.7-11.0 IMMATURE GRANULOCYTE % (test code=IG%) 1.5 % 0.0-5.0 NUCLEATED RBC % (test code=NRBC%) 0.0 % 0-0 NEUTROPHIL # (test code=NT#) 7.44 K/mm3 1.8-7.7 IMMATURE GRANULOCYTE # (test code=IG#) 0.12 x10 3/uL 0-0.03 LYMPHOCYTE # (test code=LY#) 0.28 K/mm3 1.0-5.0 MONOCYTE # (test code=MO#) 0.27 K/mm3 0-0.8 EOSINOPHIL # (test code=EO#) 0.00 K/mm3 0.0-0.5 BASOPHIL # (test code=BA#) 0.00 K/mm3 0.0-0.2 NUCLEATED RBC # (test code=NRBC#) 0.00 K/mm3 0.0-0.1 MANUAL DIFF REQUIRED (test code=MDIFF) YES STAIN ACCEPTABILITY (test code=STN ACCEPTABLE) TOTAL CELLS COUNTED (test code=TCC) #CELLS SEGMENTED NEUTROPHILS (test code=SEG) % 39-69 LYMPHOCYTE (test code=LYMPH) % 25-55 MONOCYTE (test code=MON) % 0-10 EOSINOPHIL (test code=EOS) % 0.0-5.0 CABOT RINGS (test code=CAB) MORPHOLOGY COMMENT (test code=MOC) PLATELET ESTIMATE (test code=PLTEST) PLATELET MORPHOLOGY (test code=PLTMORPH) - XR CHEST 1 [id number] 08:06:00 FAX: Gray Luong MD [place]: B St: [facility] FAX: Landy Altamirano [phone] Name: SIOBHAN BARBOSA [facility] : 1965 Age/S: 54/F [address] [facility] Unit #: [id number] Loc: [address] [place] [address] Phys: Landy Monte Acct: [id number] Dis Date: Status: ADM IN PHONE #: [phone] Exam Date: 03/21/2019 08 FAX #: [phone] Reason: COPD EXAMS: CPT CODE: [id number] XR CHEST 1 V 30980 CLINICAL HISTORY: Severe COPD exacerbation TECHNIQUE: AP chest x-ray COMPARISON: Previous day. IMPRESSION: Patchy bilateral airspace opacification, greatest in the left upper lobe. Small right and moderate left pleural effusion. Cardiomegaly with pulmonary congestion. at 0806 Reported and signed by: Nguyen Krishna D.O. CC: Gray Knott; Landy Monte Technologist: RT THEODORE(Tanya) Trnscrd Date/Time/By: 03/21/2019 (805) : By: [email or web address] Orig Print D/T: S: 03/21/2019 (0851) PAGE 1 Signed Report CBC W/MANUAL [id number] 12:29:00 * Test Item Value Reference Range Comments WHITE BLOOD CELL (test code=WBC) 5.3 K/mm3 4.5-12.5 RED BLOOD CELL (test code=RBC) 2.86 mill/mm3 3.7-5.2 HEMOGLOBIN (test code=HGB) 8.2 gram/dL 11.5-15.5 RESULT VERIFIED BY REPEAT ANALYSIS HEMATOCRIT (test code=HCT) 28.0 % 36.0-46.0 MEAN CELL VOLUME (test code=MCV) 97.9 fL 80-98 MEAN CELL HGB (test code=MCH) 28.7 picogram 27.0-33.0 MEAN CELL HGB CONCETRATION (test code=MCHC) 29.3 gram/dL 33.0-36.0 RED CELL DISTRIBUTION WIDTH (test code=RDW) 19.2 % 11.6-16.2 RED CELL DISTRIBUTION WIDTH SD (test code=RDW-SD) 68.7 fL 37.0-51.0 PLATELET COUNT (test code=PLT) 120 K/mm3 150-450 MEAN PLATELET VOLUME (test code=MPV) 12.4 fL 6.7-11.0 IMMATURE GRANULOCYTE % (test code=IG%) 0.6 % 0.0-5.0 NUCLEATED RBC % (test code=NRBC%) 0.0 % 0-0 NEUTROPHIL # (test code=NT#) 4.82 K/mm3 1.8-7.7 IMMATURE GRANULOCYTE # (test code=IG#) 0.03 x10 3/uL 0-0.03 LYMPHOCYTE # (test code=LY#) 0.33 K/mm3 1.0-5.0 MONOCYTE # (test code=MO#) 0.09 K/mm3 0-0.8 EOSINOPHIL # (test code=EO#) 0.00 K/mm3 0.0-0.5 BASOPHIL # (test code=BA#) 0.00 K/mm3 0.0-0.2 NUCLEATED RBC # (test code=NRBC#) 0.00 K/mm3 0.0-0.1 MANUAL DIFF REQUIRED (test code=MDIFF) YES STAIN ACCEPTABILITY (test code=STN ACCEPTABLE) STAIN ACCEPTABLE TOTAL CELLS COUNTED (test code=TCC) 115 #CELLS SEGMENTED NEUTROPHILS (test code=SEG) 93.0 % 39-69 BAND NEUTROPHIL (test code=BAND) 3.5 % 0-10 LYMPHOCYTE (test code=LYMPH) 3.5 % 25-55 ANISOCYTOSIS (test code=ANISO) 2+ MACROCYTOSIS (test code=MACR) 2+ PLATELET ESTIMATE (test code=PLTEST) DECREASED PLATELET MORPHOLOGY (test code=PLTMORPH) NORMAL [facility]20[facility] [id number] 11:58:00* Test Item Value Reference Range Comments SODIUM (test code=NA) 150 mmol/L 136-145 POTASSIUM (test code=K) 5.3 mmol/L 3.5-5.1 CHLORIDE (test code=CL) 123.0 mmol/L 98-107 CARBON DIOXIDE (test code=CO2) 17.0 mmol/L 21-32 ANION GAP (test code=GAP) 15.3 10-20 GLUCOSE (test code=GLU) 166 mg/dL 74-106 BLOOD UREA NITROGEN (test code=BUN) 39 mg/dL 7-18 RESULT VERIFIED BY REPEAT ANALYSIS GLOMERULAR FILTRATION RATE (test code=GFR) 26 mL/min >=60 Estimated GFR by using Modified MDRD formula.Chronic kidney disease is defined as either kidney damageor GFR <60 mL/min/1.73 m2 for >3 months. CREATININE (test code=CREAT) 2.00 mg/dL 0.55-1.02 Note change in reference range due to change in reagent. BUN/CREATININE RATIO (test code=BUN/CREA) 19.5 10-20 CALCIUM (test code=CA) 8.7 mg/dL 8.5-10.1 NOTIFIEDV.LAB. 03/20/19 [id number] 11:58:00* Test Item Value Reference Range Comments PHOSPHORUS (test code=PHOS) 5.2 mg/dL 2.5-4.9 NOTIFIEDV.LAB. 03/20/19 [id number] 11:58:00* Test Item Value Reference Range Comments MAGNESIUM (test code=MAG) 2.1 mg/dL 1.8-2.4 NOTIFIEDV.LAB. 03/20/19 0626CBC W/MANUAL [id number] 11:47:00* Test Item Value Reference Range Comments WHITE BLOOD CELL (test code=WBC) 5.3 K/mm3 4.5-12.5 RED BLOOD CELL (test code=RBC) 2.86 mill/mm3 3.7-5.2 HEMOGLOBIN (test code=HGB) 8.2 gram/dL 11.5-15.5 RESULT VERIFIED BY REPEAT ANALYSIS HEMATOCRIT (test code=HCT) 28.0 % 36.0-46.0 MEAN CELL VOLUME (test code=MCV) 97.9 fL 80-98 MEAN CELL HGB (test code=MCH) 28.7 picogram 27.0-33.0 MEAN CELL HGB CONCETRATION (test code=MCHC) 29.3 gram/dL 33.0-36.0 RED CELL DISTRIBUTION WIDTH (test code=RDW) 19.2 % 11.6-16.2 RED CELL DISTRIBUTION WIDTH SD (test code=RDW-SD) 68.7 fL 37.0-51.0 PLATELET COUNT (test code=PLT) 120 K/mm3 150-450 MEAN PLATELET VOLUME (test code=MPV) 12.4 fL 6.7-11.0 IMMATURE GRANULOCYTE % (test code=IG%) 0.6 % 0.0-5.0 NUCLEATED RBC % (test code=NRBC%) 0.0 % 0-0 NEUTROPHIL # (test code=NT#) 4.82 K/mm3 1.8-7.7 IMMATURE GRANULOCYTE # (test code=IG#) 0.03 x10 3/uL 0-0.03 LYMPHOCYTE # (test code=LY#) 0.33 K/mm3 1.0-5.0 MONOCYTE # (test code=MO#) 0.09 K/mm3 0-0.8 EOSINOPHIL # (test code=EO#) 0.00 K/mm3 0.0-0.5 BASOPHIL # (test code=BA#) 0.00 K/mm3 0.0-0.2 NUCLEATED RBC # (test code=NRBC#) 0.00 K/mm3 0.0-0.1 MANUAL DIFF REQUIRED (test code=MDIFF) YES STAIN ACCEPTABILITY (test code=STN ACCEPTABLE) STAIN ACCEPTABLE TOTAL CELLS COUNTED (test code=TCC) 115 #CELLS SEGMENTED NEUTROPHILS (test code=SEG) 93.0 % 39-69 BAND NEUTROPHIL (test code=BAND) 3.5 % 0-10 LYMPHOCYTE (test code=LYMPH) 3.5 % 25-55 MONOCYTE (test code=MON) % 0-10 ANISOCYTOSIS (test code=ANISO) 2+ MACROCYTOSIS (test code=MACR) 2+ PLATELET ESTIMATE (test code=PLTEST) DECREASED PLATELET MORPHOLOGY (test code=PLTMORPH) NORMAL 03/20/19 0627[facility] METABOLIC [id number] 11:43:00* Test Item Value Reference Range Comments SODIUM (test code=NA) 150 mmol/L 136-145 POTASSIUM (test code=K) 5.3 mmol/L 3.5-5.1 CHLORIDE (test code=CL) 123.0 mmol/L 98-107 CARBON DIOXIDE (test code=CO2) mmol/L 21-32 ANION GAP (test code=GAP) 10-20 GLUCOSE (test code=GLU) mg/dL 74-106 BLOOD UREA NITROGEN (test code=BUN) mg/dL 7-18 GLOMERULAR FILTRATION RATE (test code=GFR) mL/min >=60 CREATININE (test code=CREAT) mg/dL 0.55-1.02 BUN/CREATININE RATIO (test code=BUN/CREA) 10-20 CALCIUM (test code=CA) mg/dL 8.5-10.1 NOTIFIEDV.LAB. 03/20/19 [id number] 11:43:00* Test Item Value Reference Range Comments PHOSPHORUS (test code=PHOS) mg/dL 2.5-4.9 NOTIFIEDV.LAB. 03/20/19 [id number] 11:43:00* Test Item Value Reference Range Comments MAGNESIUM (test code=MAG) mg/dL 1.8-2.4 NOTIFIEDV.LAB. 03/20/19 0626CBC W/MANUAL [id number] 11:24:00* Test Item Value Reference Range Comments WHITE BLOOD CELL (test code=WBC) 5.3 K/mm3 4.5-12.5 RED BLOOD CELL (test code=RBC) 2.86 mill/mm3 3.7-5.2 HEMOGLOBIN (test code=HGB) 8.2 gram/dL 11.5-15.5 RESULT VERIFIED BY REPEAT ANALYSIS HEMATOCRIT (test code=HCT) 28.0 % 36.0-46.0 MEAN CELL VOLUME (test code=MCV) 97.9 fL 80-98 MEAN CELL HGB (test code=MCH) 28.7 picogram 27.0-33.0 MEAN CELL HGB CONCETRATION (test code=MCHC) 29.3 gram/dL 33.0-36.0 RED CELL DISTRIBUTION WIDTH (test code=RDW) 19.2 % 11.6-16.2 RED CELL DISTRIBUTION WIDTH SD (test code=RDW-SD) 68.7 fL 37.0-51.0 PLATELET COUNT (test code=PLT) 120 K/mm3 150-450 MEAN PLATELET VOLUME (test code=MPV) 12.4 fL 6.7-11.0 IMMATURE GRANULOCYTE % (test code=IG%) 0.6 % 0.0-5.0 NUCLEATED RBC % (test code=NRBC%) 0.0 % 0-0 NEUTROPHIL # (test code=NT#) 4.82 K/mm3 1.8-7.7 IMMATURE GRANULOCYTE # (test code=IG#) 0.03 x10 3/uL 0-0.03 LYMPHOCYTE # (test code=LY#) 0.33 K/mm3 1.0-5.0 MONOCYTE # (test code=MO#) 0.09 K/mm3 0-0.8 EOSINOPHIL # (test code=EO#) 0.00 K/mm3 0.0-0.5 BASOPHIL # (test code=BA#) 0.00 K/mm3 0.0-0.2 NUCLEATED RBC # (test code=NRBC#) 0.00 K/mm3 0.0-0.1 MANUAL DIFF REQUIRED (test code=MDIFF) YES STAIN ACCEPTABILITY (test code=STN ACCEPTABLE) TOTAL CELLS COUNTED (test code=TCC) #CELLS SEGMENTED NEUTROPHILS (test code=SEG) % 39-69 LYMPHOCYTE (test code=LYMPH) % 25-55 MONOCYTE (test code=MON) % 0-10 EOSINOPHIL (test code=EOS) % 0.0-5.0 CABOT RINGS (test code=CAB) MORPHOLOGY COMMENT (test code=MOC) PLATELET ESTIMATE (test code=PLTEST) PLATELET MORPHOLOGY (test code=PLTMORPH) 03/20/19 0627CBC W/MANUAL [id number] 11:24:00* Test Item Value Reference Range Comments WHITE BLOOD CELL (test code=WBC) 5.3 K/mm3 4.5-12.5 RED BLOOD CELL (test code=RBC) 2.86 mill/mm3 3.7-5.2 HEMOGLOBIN (test code=HGB) 8.2 gram/dL 11.5-15.5 RESULT VERIFIED BY REPEAT ANALYSIS HEMATOCRIT (test code=HCT) 28.0 % 36.0-46.0 MEAN CELL VOLUME (test code=MCV) 97.9 fL 80-98 MEAN CELL HGB (test code=MCH) 28.7 picogram 27.0-33.0 MEAN CELL HGB CONCETRATION (test code=MCHC) 29.3 gram/dL 33.0-36.0 RED CELL DISTRIBUTION WIDTH (test code=RDW) 19.2 % 11.6-16.2 RED CELL DISTRIBUTION WIDTH SD (test code=RDW-SD) 68.7 fL 37.0-51.0 PLATELET COUNT (test code=PLT) 120 K/mm3 150-450 MEAN PLATELET VOLUME (test code=MPV) 12.4 fL 6.7-11.0 IMMATURE GRANULOCYTE % (test code=IG%) 0.6 % 0.0-5.0 NUCLEATED RBC % (test code=NRBC%) 0.0 % 0-0 NEUTROPHIL # (test code=NT#) 4.82 K/mm3 1.8-7.7 IMMATURE GRANULOCYTE # (test code=IG#) 0.03 x10 3/uL 0-0.03 LYMPHOCYTE # (test code=LY#) 0.33 K/mm3 1.0-5.0 MONOCYTE # (test code=MO#) 0.09 K/mm3 0-0.8 EOSINOPHIL # (test code=EO#) 0.00 K/mm3 0.0-0.5 BASOPHIL # (test code=BA#) 0.00 K/mm3 0.0-0.2 NUCLEATED RBC # (test code=NRBC#) 0.00 K/mm3 0.0-0.1 MANUAL DIFF REQUIRED (test code=MDIFF) YES STAIN ACCEPTABILITY (test code=STN ACCEPTABLE) TOTAL CELLS COUNTED (test code=TCC) #CELLS SEGMENTED NEUTROPHILS (test code=SEG) % 39-69 LYMPHOCYTE (test code=LYMPH) % 25-55 MONOCYTE (test code=MON) % 0-10 EOSINOPHIL (test code=EOS) % 0.0-5.0 MORPHOLOGY COMMENT (test code=MOC) PLATELET ESTIMATE (test code=PLTEST) PLATELET MORPHOLOGY (test code=PLTMORPH) 03/20/19 0627CBC W/MANUAL [id number] 11:24:00* Test Item Value Reference Range Comments WHITE BLOOD CELL (test code=WBC) 5.3 K/mm3 4.5-12.5 RED BLOOD CELL (test code=RBC) 2.86 mill/mm3 3.7-5.2 HEMOGLOBIN (test code=HGB) 8.2 gram/dL 11.5-15.5 RESULT VERIFIED BY REPEAT ANALYSIS HEMATOCRIT (test code=HCT) 28.0 % 36.0-46.0 MEAN CELL VOLUME (test code=MCV) 97.9 fL 80-98 MEAN CELL HGB (test code=MCH) 28.7 picogram 27.0-33.0 MEAN CELL HGB CONCETRATION (test code=MCHC) 29.3 gram/dL 33.0-36.0 RED CELL DISTRIBUTION WIDTH (test code=RDW) 19.2 % 11.6-16.2 RED CELL DISTRIBUTION WIDTH SD (test code=RDW-SD) 68.7 fL 37.0-51.0 PLATELET COUNT (test code=PLT) 120 K/mm3 150-450 MEAN PLATELET VOLUME (test code=MPV) 12.4 fL 6.7-11.0 IMMATURE GRANULOCYTE % (test code=IG%) 0.6 % 0.0-5.0 NUCLEATED RBC % (test code=NRBC%) 0.0 % 0-0 NEUTROPHIL # (test code=NT#) 4.82 K/mm3 1.8-7.7 IMMATURE GRANULOCYTE # (test code=IG#) 0.03 x10 3/uL 0-0.03 LYMPHOCYTE # (test code=LY#) 0.33 K/mm3 1.0-5.0 MONOCYTE # (test code=MO#) 0.09 K/mm3 0-0.8 EOSINOPHIL # (test code=EO#) 0.00 K/mm3 0.0-0.5 BASOPHIL # (test code=BA#) 0.00 K/mm3 0.0-0.2 NUCLEATED RBC # (test code=NRBC#) 0.00 K/mm3 0.0-0.1 MANUAL DIFF REQUIRED (test code=MDIFF) YES STAIN ACCEPTABILITY (test code=STN ACCEPTABLE) TOTAL CELLS COUNTED (test code=TCC) #CELLS SEGMENTED NEUTROPHILS (test code=SEG) % 39-69 LYMPHOCYTE (test code=LYMPH) % 25-55 MONOCYTE (test code=MON) % 0-10 MORPHOLOGY COMMENT (test code=MOC) PLATELET ESTIMATE (test code=PLTEST) PLATELET MORPHOLOGY (test code=PLTMORPH) 03/20/19 0627CB W/MANUAL [id number] 11:23:00* Test Item Value Reference Range Comments WHITE BLOOD CELL (test code=WBC) 5.3 K/mm3 4.5-12.5 RED BLOOD CELL (test code=RBC) 2.86 mill/mm3 3.7-5.2 HEMOGLOBIN (test code=HGB) 8.2 gram/dL 11.5-15.5 RESULT VERIFIED BY REPEAT ANALYSIS HEMATOCRIT (test code=HCT) 28.0 % 36.0-46.0 MEAN CELL VOLUME (test code=MCV) 97.9 fL 80-98 MEAN CELL HGB (test code=MCH) 28.7 picogram 27.0-33.0 MEAN CELL HGB CONCETRATION (test code=MCHC) 29.3 gram/dL 33.0-36.0 RED CELL DISTRIBUTION WIDTH (test code=RDW) 19.2 % 11.6-16.2 RED CELL DISTRIBUTION WIDTH SD (test code=RDW-SD) 68.7 fL 37.0-51.0 PLATELET COUNT (test code=PLT) 120 K/mm3 150-450 MEAN PLATELET VOLUME (test code=MPV) 12.4 fL 6.7-11.0 IMMATURE GRANULOCYTE % (test code=IG%) 0.6 % 0.0-5.0 NUCLEATED RBC % (test code=NRBC%) 0.0 % 0-0 NEUTROPHIL # (test code=NT#) 4.82 K/mm3 1.8-7.7 IMMATURE GRANULOCYTE # (test code=IG#) 0.03 x10 3/uL 0-0.03 LYMPHOCYTE # (test code=LY#) 0.33 K/mm3 1.0-5.0 MONOCYTE # (test code=MO#) 0.09 K/mm3 0-0.8 EOSINOPHIL # (test code=EO#) 0.00 K/mm3 0.0-0.5 BASOPHIL # (test code=BA#) 0.00 K/mm3 0.0-0.2 NUCLEATED RBC # (test code=NRBC#) 0.00 K/mm3 0.0-0.1 MANUAL DIFF REQUIRED (test code=MDIFF) YES STAIN ACCEPTABILITY (test code=STN ACCEPTABLE) TOTAL CELLS COUNTED (test code=TCC) #CELLS SEGMENTED NEUTROPHILS (test code=SEG) % 39-69 LYMPHOCYTE (test code=LYMPH) % 25-55 MONOCYTE (test code=MON) % 0-10 EOSINOPHIL (test code=EOS) % 0.0-5.0 CABOT RINGS (test code=CAB) MORPHOLOGY COMMENT (test code=MOC) PLATELET ESTIMATE (test code=PLTEST) PLATELET MORPHOLOGY (test code=PLTMORPH) 03/20/19 0627CBC W/MANUAL [id number] 11:23:00* Test Item Value Reference Range Comments WHITE BLOOD CELL (test code=WBC) 5.3 K/mm3 4.5-12.5 RED BLOOD CELL (test code=RBC) 2.86 mill/mm3 3.7-5.2 HEMOGLOBIN (test code=HGB) 8.2 gram/dL 11.5-15.5 RESULT VERIFIED BY REPEAT ANALYSIS HEMATOCRIT (test code=HCT) 28.0 % 36.0-46.0 MEAN CELL VOLUME (test code=MCV) 97.9 fL 80-98 MEAN CELL HGB (test code=MCH) 28.7 picogram 27.0-33.0 MEAN CELL HGB CONCETRATION (test code=MCHC) 29.3 gram/dL 33.0-36.0 RED CELL DISTRIBUTION WIDTH (test code=RDW) 19.2 % 11.6-16.2 RED CELL DISTRIBUTION WIDTH SD (test code=RDW-SD) 68.7 fL 37.0-51.0 PLATELET COUNT (test code=PLT) 120 K/mm3 150-450 MEAN PLATELET VOLUME (test code=MPV) 12.4 fL 6.7-11.0 IMMATURE GRANULOCYTE % (test code=IG%) 0.6 % 0.0-5.0 NUCLEATED RBC % (test code=NRBC%) 0.0 % 0-0 NEUTROPHIL # (test code=NT#) 4.82 K/mm3 1.8-7.7 IMMATURE GRANULOCYTE # (test code=IG#) 0.03 x10 3/uL 0-0.03 LYMPHOCYTE # (test code=LY#) 0.33 K/mm3 1.0-5.0 MONOCYTE # (test code=MO#) 0.09 K/mm3 0-0.8 EOSINOPHIL # (test code=EO#) 0.00 K/mm3 0.0-0.5 BASOPHIL # (test code=BA#) 0.00 K/mm3 0.0-0.2 NUCLEATED RBC # (test code=NRBC#) 0.00 K/mm3 0.0-0.1 MANUAL DIFF REQUIRED (test code=MDIFF) YES STAIN ACCEPTABILITY (test code=STN ACCEPTABLE) TOTAL CELLS COUNTED (test code=TCC) #CELLS SEGMENTED NEUTROPHILS (test code=SEG) % 39-69 LYMPHOCYTE (test code=LYMPH) % 25-55 MONOCYTE (test code=MON) % 0-10 EOSINOPHIL (test code=EOS) % 0.0-5.0 CABOT RINGS (test code=CAB) MORPHOLOGY COMMENT (test code=MOC) PLATELET ESTIMATE (test code=PLTEST) PLATELET MORPHOLOGY (test code=PLTMORPH) 03/20/19 0627- XR CHEST 1 [id number] 08:18:00 FAX: Gray Luong MD [place]: B St: ADM FAX: Landy Altamirano [phone] Name: SIOBHAN BARBOSA [facility] : 1965 Age/S: 54/F [address] [facility] Unit #: [id number] Loc: V.[address] [place] [address] Phys: Landy Monte Acct: [id number] Dis Date: Status: ADM IN PHONE #: [phone] Exam Date: 03/20/2019 0748 FAX #: [phone] Reason: COPD exacerbation EXAMS: CPT CODE: [id number] XR CHEST 1 V [id number] REASON FOR EXAM: COPD exacerbation EXAM ORDER DATE: 03/20/2019 5:00 AM Ordering M.Lakshmi: NISHANT Gu PROCEDURE: - XR CHEST 1 V COMPARISON: 03/19/2019 FINDINGS: Portable AP frontal view of the chest obtained at 7:48 AM shows moderate diffuse airspace opacities. The heart size is minimally enlarged. Pulmonary vasculatures are mildly congested. IMPR ESSION: Interval worsening of the moderate dense diffuse airspace opacit ies suggestive of worsening of the pulmonary edema/congestive heart fail ure with small bilateral pleural effusions at 0818 Reported and signed b y: Jewel Reyez M.D. CC: Gray Knott; Landy Monte Technologist: Lisa Linares RT(R); ... Trnjeremiah Date/Time/By: 03/20/2019 (0818) : By: Mark Orig Print D/T: S: 03/20/2019 (1421) PAGE 1 Signed Report [id number] 22:02:00* Test Item Value Reference Range Comments TROPONIN-I (test code=TROPI) 0.028 ng/mL 0-0.045 REFUSED NOTIFIED SABINE GRIMALDO([id number])V.[id number].LC1 [id number] TO PHLEBOTOMI ST: COLLECT 3 HOURS AFTER PREVIOUS SAMPLEBASIC METABOLIC [id number] 21:59:00* Test Item Value Reference Range Comments SODIUM (test code=NA) 150 mmol/L 136-145 POTASSIUM (test code=K) 5.3 mmol/L 3.5-5.1 CHLORIDE (test code=CL) 123.0 mmol/L 98-107 CARBON DIOXIDE (test code=CO2) 16.0 mmol/L 21-32 ANION GAP (test code=GAP) 16.3 10-20 GLUCOSE (test code=GLU) 158 mg/dL 74-106 BLOOD UREA NITROGEN (test code=BUN) 31 mg/dL 7-18 GLOMERULAR FILTRATION RATE (test code=GFR) 26 mL/min >=60 Estimated GFR by using Modified MDRD formula.Chronic kidney disease is defined as either kidney damageor GFR <60 mL/min/1.73 m2 for >3 months. CREATININE (test code=CREAT) 2.00 mg/dL 0.55-1.02 Note change in reference range due to change in reagent. BUN/CREATININE RATIO (test code=BUN/CREA) 15.5 10-20 CALCIUM (test code=CA) 9.0 mg/dL 8.5-10.1 [id number] 14:26:00* Test Item Value Reference Range Comments TROPONIN-I (test code=TROPI) 0.041 ng/mL 0-0.045 COMMENTS TO MULTIPLE WIRE SAWYER: COLLECT 3 HOURS AFTER PREVIOUS SAMPLELACTIC [id number] 12:03:00* Test Item Value Reference Range Comments LACTIC ACID (test code=LACT) 1.5 mmol/L 0.4-1.9 URINALYSIS [id number] 10:19:00* Test Item Value Reference Range Comments UA COLOR (test code=COLU) ENRIKE YELLOW UA APPEARANCE (test code=APPU) CLOUDY CLEAR UA GLUCOSE DIPSTICK (test code=DGLUU) NEGATIVE mg/dL NEGATIVE UA BILIRUBIN DIPSTICK (test code=BILU) 2+ (Mod 2.0-4.0) NEGATIVE UA KETONE DIPSTICK (test code=KETU) NEGATIVE mg/dL NEGATIVE UA SPECIFIC GRAVITY (test code=SGU) 1.025 1.001-1.035 UA BLOOD DIPSTICK (test code=JONO) 3+ (Large) NEGATIVE UA PH DIPSTICK (test code=AHMET) 5.0 5.0-8.0 UA PROTEIN DIPSTICK (test code=PROU) >=300 (3+) mg/dL Neg-15 UA UROBILINIOGEN DIPSTICK (test code=URO) 1 mg/dL (1+) mg/dL 0.0-0.2 UA NITRITE DIPSTICK (test code=IFEOMA) POSITIVE NEGATIVE UA LEUKOCYTE ESTERASE W REFLEX (test code=LEUUR) 2+ NEGATIVE UA WBC (test code=WBCU) 151-200 per HPF 0-5 UA RBC (test code=RBCU) >100 per HPF 0-5 UA EPITHELIAL CELLS (test code=EPIU) MODERATE per HPF Few UA BACTERIA (test code=BACU) MODERATE per HPF NONE UA YEAST (test code=YEASTU) RARE per HPF NONE HYPHAEL AND BUDDING FORMS Urine Source? Clean CatchCBC W/MANUAL [id number] 09:41:00* Test Item Value Reference Range Comments WHITE BLOOD CELL (test code=WBC) 10.9 K/mm3 4.5-12.5 RED BLOOD CELL (test code=RBC) 3.74 mill/mm3 3.7-5.2 HEMOGLOBIN (test code=HGB) 10.5 gram/dL 11.5-15.5 HEMATOCRIT (test code=HCT) 35.3 % 36.0-46.0 MEAN CELL VOLUME (test code=MCV) 94.4 fL 80-98 MEAN CELL HGB (test code=MCH) 28.1 picogram 27.0-33.0 MEAN CELL HGB CONCETRATION (test code=MCHC) 29.7 gram/dL 33.0-36.0 RED CELL DISTRIBUTION WIDTH (test code=RDW) 19.0 % 11.6-16.2 RED CELL DISTRIBUTION WIDTH SD (test code=RDW-SD) 65.7 fL 37.0-51.0 PLATELET COUNT (test code=PLT) 165 K/mm3 150-450 MEAN PLATELET VOLUME (test code=MPV) 12.3 fL 6.7-11.0 IMMATURE GRANULOCYTE % (test code=IG%) 0.5 % 0.0-5.0 NUCLEATED RBC % (test code=NRBC%) 0.0 % 0-0 NEUTROPHIL # (test code=NT#) 7.93 K/mm3 1.8-7.7 IMMATURE GRANULOCYTE # (test code=IG#) 0.05 x10 3/uL 0-0.03 LYMPHOCYTE # (test code=LY#) 2.07 K/mm3 1.0-5.0 MONOCYTE # (test code=MO#) 0.47 K/mm3 0-0.8 EOSINOPHIL # (test code=EO#) 0.27 K/mm3 0.0-0.5 BASOPHIL # (test code=BA#) 0.07 K/mm3 0.0-0.2 NUCLEATED RBC # (test code=NRBC#) 0.00 K/mm3 0.0-0.1 MANUAL DIFF REQUIRED (test code=MDIFF) YES STAIN ACCEPTABILITY (test code=STN ACCEPTABLE) STAIN ACCEPTABLE TOTAL CELLS COUNTED (test code=TCC) 115 #CELLS SEGMENTED NEUTROPHILS (test code=SEG) 61.7 % 39-69 BAND NEUTROPHIL (test code=BAND) 12.2 % 0-10 LYMPHOCYTE (test code=LYMPH) 13.9 % 25-55 REACTIVE LYMPH (test code=RELYMPH) 1.7 % MONOCYTE (test code=MON) 6.1 % 0-10 EOSINOPHIL (test code=EOS) 4.4 % 0.0-5.0 BASOPHIL (test code=BASO) 0 % 0-1.0 METAMYELOCYTE (test code=META) 0 % 0-0 MYELOCYTE (test code=MYELO) 0 % 0.0-0.0 PROMYELOCYTE (test code=PROM) 0 % 0-0 HYPOCHROMIA (test code=HYPO) 1+ POIKILOCYTOSIS (test code=POIK) 1+ ANISOCYTOSIS (test code=ANISO) 1+ SPHEROCYTES (test code=SPH) RARE CRENATED CELLS (test code=CREN) 1+ PLATELET ESTIMATE (test code=PLTEST) ADEQUATE PLATELET MORPHOLOGY (test code=PLTMORPH) CLUMPING PRESENT IMMATURE FORMS (test code=IMMAT) 0 % 0-0 URINALYSIS [id number] 09:16:00* Test Item Value Reference Range Comments UA COLOR (test code=COLU) ENRIKE YELLOW UA APPEARANCE (test code=APPU) CLOUDY CLEAR UA GLUCOSE DIPSTICK (test code=DGLUU) NEGATIVE mg/dL NEGATIVE UA BILIRUBIN DIPSTICK (test code=BILU) 2+ (Mod 2.0-4.0) NEGATIVE UA KETONE DIPSTICK (test code=KETU) NEGATIVE mg/dL NEGATIVE UA SPECIFIC GRAVITY (test code=SGU) 1.025 1.001-1.035 UA BLOOD DIPSTICK (test code=JONO) 3+ (Large) NEGATIVE UA PH DIPSTICK (test code=AHMET) 5.0 5.0-8.0 UA PROTEIN DIPSTICK (test code=PROU) >=300 (3+) mg/dL Neg-15 UA UROBILINIOGEN DIPSTICK (test code=URO) 1 mg/dL (1+) mg/dL 0.0-0.2 UA NITRITE DIPSTICK (test code=IFEOMA) POSITIVE NEGATIVE UA LEUKOCYTE ESTERASE W REFLEX (test code=LEUUR) 2+ NEGATIVE UA WBC (test code=WBCU) 151-200 per HPF 0-5 UA RBC (test code=RBCU) >100 per HPF 0-5 UA EPITHELIAL CELLS (test code=EPIU) MODERATE per HPF Few UA BACTERIA (test code=BACU) per HPF NONE Urine Source? Clean CatchPROCALCITONIN (PCT)2019-03-19 08:45:00* Test Item Value Reference Range Comments PROCALCITONIN (PCT) (test code=PROCAL) 0.24 ng/ml Concentration Interpretation (ng/mL) <0.51 Sepsis is not likely. Local bacterial infection is possible. (LOW RISK for progression to Sepsis) 0.51 - 2.00 Sepsis is possible, but other conditions are known to elevate PCT as well. (MODERATE RISK for progression to Sepsis) > 2.00 Sepsis is likely, unless other causes are known. (HIGH RISK for progression to Severe Sepsis or Septic Shock) 10.00 High likelihood of Severe Sepsis or Septic or higher Shock. *Increased PCT levels may not always be related to systemic bacterial infection.*Low PCT levels do not automatically exclude the presence of bacterial infection.*All results should be interpreted taking into account the patients history. URINALYSIS [id number] 08:44:00* Test Item Value Reference Range Comments UA COLOR (test code=COLU) ENRIKE YELLOW UA APPEARANCE (test code=APPU) CLOUDY CLEAR UA GLUCOSE DIPSTICK (test code=DGLUU) NEGATIVE mg/dL NEGATIVE UA BILIRUBIN DIPSTICK (test code=BILU) 2+ (Mod 2.0-4.0) NEGATIVE UA KETONE DIPSTICK (test code=KETU) NEGATIVE mg/dL NEGATIVE UA SPECIFIC GRAVITY (test code=SGU) 1.025 1.001-1.035 UA BLOOD DIPSTICK (test code=JONO) 3+ (Large) NEGATIVE UA PH DIPSTICK (test code=AHMET) 5.0 5.0-8.0 UA PROTEIN DIPSTICK (test code=PROU) >=300 (3+) mg/dL Neg-15 UA UROBILINIOGEN DIPSTICK (test code=URO) 1 mg/dL (1+) mg/dL 0.0-0.2 UA NITRITE DIPSTICK (test code=IFEOMA) POSITIVE NEGATIVE UA LEUKOCYTE ESTERASE W REFLEX (test code=LEUUR) 2+ NEGATIVE UA WBC (test code=WBCU) per HPF 0-5 UA RBC (test code=RBCU) per HPF 0-5 UA EPITHELIAL CELLS (test code=EPIU) per HPF Few UA BACTERIA (test code=BACU) per HPF NONE Urine Source? Clean CatchPROTHROMBIN [id number] 08:11:00* Test Item Value Reference Range Comments PROTHROMBIN TIME PATIENT (test code=PTP) 12.3 seconds 9.0-14.0 INTERNATIONAL NORMAL RATIO (test code=INR) 1.1 0.8-1.2 The therapeutic range for oral anticoagulant therapy formost indications is an international normalized ratio (INR)of between 2.0 and 3.0. The recommended therapeutic INRrange for various clinical situations is listed below: Clinical Situation INR range Pulmonary e mbolism treatment (2.0-3.0)Venous thrombosis treatmentVenous thrombosis prophylaxis (high risk surgery)Prevention of systemic embolism from: Acute myocardial infarction Valvular heart disease Atrial fibrillation Mechanical prosthetic heart valves (2.5-3.5) IS PATIENT ON ANTICOAGULANTS? NTHROMBOPLASTIN TIME [id number] 08:11:00* Test Item Value Reference Range Comments THROMBOPLASTIN TIME PARTIAL (test code=PTT) 39.3 seconds 25.0-36.5 IS PATIENT ON ANTICOAGULANTS? NLACTIC [id number] 08:08:00* Test Item Value Reference Range Comments LACTIC ACID (test code=LACT) 2.3 mmol/L 0.4-1.9 Results called to [id number] by MYAH 03/19/19 0808Critical results verified and read back by Nurse? Y BASIC METABOLIC [id number] 08:07:00* Test Item Value Reference Range Comments SODIUM (test code=NA) 146 mmol/L 136-145 POTASSIUM (test code=K) 5.9 mmol/L 3.5-5.1 CHLORIDE (test code=CL) 118.0 mmol/L 98-107 CARBON DIOXIDE (test code=CO2) 17.0 mmol/L 21-32 ANION GAP (test code=GAP) 16.9 10-20 GLUCOSE (test code=GLU) 144 mg/dL 74-106 BLOOD UREA NITROGEN (test code=BUN) 30 mg/dL 7-18 GLOMERULAR FILTRATION RATE (test code=GFR) 26 mL/min >=60 Estimated GFR by using Modified MDRD formula.Chronic kidney disease is defined as either kidney damageor GFR <60 mL/min/1.73 m2 for >3 months. CREATININE (test code=CREAT) 2.00 mg/dL 0.55-1.02 Note change in reference range due to change in reagent. BUN/CREATININE RATIO (test code=BUN/CREA) 15.0 10-20 CALCIUM (test code=CA) 8.8 mg/dL 8.5-10.1 HEPATIC FUNCTION [id number] 08:07:00* Test Item Value Reference Range Comments TOTAL PROTEIN (test code=PROT) 8.2 gram/dL 6.4-8.2 ALBUMIN (test code=ALB) 2.3 g/dL 3.4-5.0 GLOBULIN (test code=GLOB) 5.9 gram/dL 2.7-4.2 ALBUMIN/GLOBULIN RATIO (test code=A/G) 0.4 0.75-1.50 BILIRUBIN TOTAL (test code=BILT) 1.30 mg/dL 0.0-1.0 BILIRUBIN DIRECT (test code=BILD) 0.59 mg/dL 0.0-0.20 SGOT/AST (test code=AST) 82 IUnit/L 15-37 SGPT/ALT (test code=ALT) 50 IUnit/L 12-78 ALKALINE PHOSPHATASE TOTAL (test code=ALKP) 828 IUnit/L 45-117 Note change in reference range due to change in reagent. [id number] 08:07:00* Test Item Value Reference Range Comments TROPONIN-I (test code=TROPI) <0.015 ng/mL 0-0.045 - XR CHEST 1 [id number] 07:48:00 FAX: Alec Mcdowell MD [phone] [place]: [address]: REG Name: Jerry RAINESSIOBHAN ARRIAZA [facility] : [birth year] Age/S: 54/F [address] Unit #: [id number] Loc: [place] [address] Phys: Alec Mcdowell MD Acct: [id number] Dis Date: Status: REG ER PHONE #: [phone] Exam Date: 03/19/2019 0733 FAX #: [phone] Reason: CODE SEPSIS EXAMS: CPT CODE: [id number] XR CHEST 1 V [id number] HISTORY: Respiratory distress, CODE SEPSIS TECHNIQUE: AP chest x-ray COMPARISON: 11/18/18 FINDINGS: Left upper lobe consolidation, suspect p neumonia. Small left pleural effusion. Cardiomegaly. Mediastinal silhouett e is unremarkable. Cervicothoracic spondylosis. Chronic right clavicle fra cture deformity. IMPRESSION: Left upper lobe consolidation, suspect pneumonia. Small left pleural effusion. at 0748 Reported and signed by: Nguyen Krishna D.O. CC: Alec Hernandez MD Technologist: DONNA RETANA(R); Katja Bhat(R) Trnscrd Date/Time/By: 03/19/2019 (07 48) : By: [email or web address] Orig Print D/T: S: 03/19/2019 (0751) PAGE 1 Signed Report POC LACTIC [id number] 07:39:00* Test Item Value Reference Range Comments POC LACTIC ACID (test code=POCLAC) 2.53 MMOL/L 0.4-2.2 CBC W/MANUAL [id number] 07:38:00* Test Item Value Reference Range Comments WHITE BLOOD CELL (test code=WBC) 10.9 K/mm3 4.5-12.5 RED BLOOD CELL (test code=RBC) 3.74 mill/mm3 3.7-5.2 HEMOGLOBIN (test code=HGB) 10.5 gram/dL 11.5-15.5 HEMATOCRIT (test code=HCT) 35.3 % 36.0-46.0 MEAN CELL VOLUME (test code=MCV) 94.4 fL 80-98 MEAN CELL HGB (test code=MCH) 28.1 picogram 27.0-33.0 MEAN CELL HGB CONCETRATION (test code=MCHC) 29.7 gram/dL 33.0-36.0 RED CELL DISTRIBUTION WIDTH (test code=RDW) 19.0 % 11.6-16.2 RED CELL DISTRIBUTION WIDTH SD (test code=RDW-SD) 65.7 fL 37.0-51.0 PLATELET COUNT (test code=PLT) 165 K/mm3 150-450 MEAN PLATELET VOLUME (test code=MPV) 12.3 fL 6.7-11.0 IMMATURE GRANULOCYTE % (test code=IG%) 0.5 % 0.0-5.0 NUCLEATED RBC % (test code=NRBC%) 0.0 % 0-0 NEUTROPHIL # (test code=NT#) 7.93 K/mm3 1.8-7.7 IMMATURE GRANULOCYTE # (test code=IG#) 0.05 x10 3/uL 0-0.03 LYMPHOCYTE # (test code=LY#) 2.07 K/mm3 1.0-5.0 MONOCYTE # (test code=MO#) 0.47 K/mm3 0-0.8 EOSINOPHIL # (test code=EO#) 0.27 K/mm3 0.0-0.5 BASOPHIL # (test code=BA#) 0.07 K/mm3 0.0-0.2 NUCLEATED RBC # (test code=NRBC#) 0.00 K/mm3 0.0-0.1 MANUAL DIFF REQUIRED (test code=MDIFF) YES STAIN ACCEPTABILITY (test code=STN ACCEPTABLE) TOTAL CELLS COUNTED (test code=TCC) #CELLS SEGMENTED NEUTROPHILS (test code=SEG) % 39-69 LYMPHOCYTE (test code=LYMPH) % 25-55 MONOCYTE (test code=MON) % 0-10 EOSINOPHIL (test code=EOS) % 0.0-5.0 CABOT RINGS (test code=CAB) MORPHOLOGY COMMENT (test code=MOC) PLATELET ESTIMATE (test code=PLTEST) PLATELET MORPHOLOGY (test code=PLTMORPH) CBC W/MANUAL [id number] 07:38:00* Test Item Value Reference Range Comments WHITE BLOOD CELL (test code=WBC) 10.9 K/mm3 4.5-12.5 RED BLOOD CELL (test code=RBC) 3.74 mill/mm3 3.7-5.2 HEMOGLOBIN (test code=HGB) 10.5 gram/dL 11.5-15.5 HEMATOCRIT (test code=HCT) 35.3 % 36.0-46.0 MEAN CELL VOLUME (test code=MCV) 94.4 fL 80-98 MEAN CELL HGB (test code=MCH) 28.1 picogram 27.0-33.0 MEAN CELL HGB CONCETRATION (test code=MCHC) 29.7 gram/dL 33.0-36.0 RED CELL DISTRIBUTION WIDTH (test code=RDW) 19.0 % 11.6-16.2 RED CELL DISTRIBUTION WIDTH SD (test code=RDW-SD) 65.7 fL 37.0-51.0 PLATELET COUNT (test code=PLT) 165 K/mm3 150-450 MEAN PLATELET VOLUME (test code=MPV) 12.3 fL 6.7-11.0 IMMATURE GRANULOCYTE % (test code=IG%) 0.5 % 0.0-5.0 NUCLEATED RBC % (test code=NRBC%) 0.0 % 0-0 NEUTROPHIL # (test code=NT#) 7.93 K/mm3 1.8-7.7 IMMATURE GRANULOCYTE # (test code=IG#) 0.05 x10 3/uL 0-0.03 LYMPHOCYTE # (test code=LY#) 2.07 K/mm3 1.0-5.0 MONOCYTE # (test code=MO#) 0.47 K/mm3 0-0.8 EOSINOPHIL # (test code=EO#) 0.27 K/mm3 0.0-0.5 BASOPHIL # (test code=BA#) 0.07 K/mm3 0.0-0.2 NUCLEATED RBC # (test code=NRBC#) 0.00 K/mm3 0.0-0.1 MANUAL DIFF REQUIRED (test code=MDIFF) YES STAIN ACCEPTABILITY (test code=STN ACCEPTABLE) TOTAL CELLS COUNTED (test code=TCC) #CELLS SEGMENTED NEUTROPHILS (test code=SEG) % 39-69 LYMPHOCYTE (test code=LYMPH) % 25-55 MONOCYTE (test code=MON) % 0-10 EOSINOPHIL (test code=EOS) % 0.0-5.0 CABOT RINGS (test code=CAB) MORPHOLOGY COMMENT (test code=MOC) PLATELET ESTIMATE (test code=PLTEST) PLATELET MORPHOLOGY (test code=PLTMORPH) CBC W/MANUAL [id number] 07:38:00* Test Item Value Reference Range Comments WHITE BLOOD CELL (test code=WBC) 10.9 K/mm3 4.5-12.5 RED BLOOD CELL (test code=RBC) 3.74 mill/mm3 3.7-5.2 HEMOGLOBIN (test code=HGB) 10.5 gram/dL 11.5-15.5 HEMATOCRIT (test code=HCT) 35.3 % 36.0-46.0 MEAN CELL VOLUME (test code=MCV) 94.4 fL 80-98 MEAN CELL HGB (test code=MCH) 28.1 picogram 27.0-33.0 MEAN CELL HGB CONCETRATION (test code=MCHC) 29.7 gram/dL 33.0-36.0 RED CELL DISTRIBUTION WIDTH (test code=RDW) 19.0 % 11.6-16.2 RED CELL DISTRIBUTION WIDTH SD (test code=RDW-SD) 65.7 fL 37.0-51.0 PLATELET COUNT (test code=PLT) 165 K/mm3 150-450 MEAN PLATELET VOLUME (test code=MPV) 12.3 fL 6.7-11.0 IMMATURE GRANULOCYTE % (test code=IG%) 0.5 % 0.0-5.0 NUCLEATED RBC % (test code=NRBC%) 0.0 % 0-0 NEUTROPHIL # (test code=NT#) 7.93 K/mm3 1.8-7.7 IMMATURE GRANULOCYTE # (test code=IG#) 0.05 x10 3/uL 0-0.03 LYMPHOCYTE # (test code=LY#) 2.07 K/mm3 1.0-5.0 MONOCYTE # (test code=MO#) 0.47 K/mm3 0-0.8 EOSINOPHIL # (test code=EO#) 0.27 K/mm3 0.0-0.5 BASOPHIL # (test code=BA#) 0.07 K/mm3 0.0-0.2 NUCLEATED RBC # (test code=NRBC#) 0.00 K/mm3 0.0-0.1 MANUAL DIFF REQUIRED (test code=MDIFF) YES STAIN ACCEPTABILITY (test code=STN ACCEPTABLE) TOTAL CELLS COUNTED (test code=TCC) #CELLS SEGMENTED NEUTROPHILS (test code=SEG) % 39-69 LYMPHOCYTE (test code=LYMPH) % 25-55 MONOCYTE (test code=MON) % 0-10 EOSINOPHIL (test code=EOS) % 0.0-5.0 MORPHOLOGY COMMENT (test code=MOC) PLATELET ESTIMATE (test code=PLTEST) PLATELET MORPHOLOGY (test code=PLTMORPH) CBC W/MANUAL [id number] 07:38:00* Test Item Value Reference Range Comments WHITE BLOOD CELL (test code=WBC) 10.9 K/mm3 4.5-12.5 RED BLOOD CELL (test code=RBC) 3.74 mill/mm3 3.7-5.2 HEMOGLOBIN (test code=HGB) 10.5 gram/dL 11.5-15.5 HEMATOCRIT (test code=HCT) 35.3 % 36.0-46.0 MEAN CELL VOLUME (test code=MCV) 94.4 fL 80-98 MEAN CELL HGB (test code=MCH) 28.1 picogram 27.0-33.0 MEAN CELL HGB CONCETRATION (test code=MCHC) 29.7 gram/dL 33.0-36.0 RED CELL DISTRIBUTION WIDTH (test code=RDW) 19.0 % 11.6-16.2 RED CELL DISTRIBUTION WIDTH SD (test code=RDW-SD) 65.7 fL 37.0-51.0 PLATELET COUNT (test code=PLT) 165 K/mm3 150-450 MEAN PLATELET VOLUME (test code=MPV) 12.3 fL 6.7-11.0 IMMATURE GRANULOCYTE % (test code=IG%) 0.5 % 0.0-5.0 NUCLEATED RBC % (test code=NRBC%) 0.0 % 0-0 NEUTROPHIL # (test code=NT#) 7.93 K/mm3 1.8-7.7 IMMATURE GRANULOCYTE # (test code=IG#) 0.05 x10 3/uL 0-0.03 LYMPHOCYTE # (test code=LY#) 2.07 K/mm3 1.0-5.0 MONOCYTE # (test code=MO#) 0.47 K/mm3 0-0.8 EOSINOPHIL # (test code=EO#) 0.27 K/mm3 0.0-0.5 BASOPHIL # (test code=BA#) 0.07 K/mm3 0.0-0.2 NUCLEATED RBC # (test code=NRBC#) 0.00 K/mm3 0.0-0.1 MANUAL DIFF REQUIRED (test code=MDIFF) YES STAIN ACCEPTABILITY (test code=STN ACCEPTABLE) TOTAL CELLS COUNTED (test code=TCC) #CELLS SEGMENTED NEUTROPHILS (test code=SEG) % 39-69 LYMPHOCYTE (test code=LYMPH) % 25-55 MONOCYTE (test code=MON) % 0-10 MORPHOLOGY COMMENT (test code=MOC) PLATELET ESTIMATE (test code=PLTEST) PLATELET MORPHOLOGY (test code=PLTMORPH) CBC W/MANUAL [id number] 07:38:00* Test Item Value Reference Range Comments WHITE BLOOD CELL (test code=WBC) 10.9 K/mm3 4.5-12.5 RED BLOOD CELL (test code=RBC) 3.74 mill/mm3 3.7-5.2 HEMOGLOBIN (test code=HGB) 10.5 gram/dL 11.5-15.5 HEMATOCRIT (test code=HCT) 35.3 % 36.0-46.0 MEAN CELL VOLUME (test code=MCV) 94.4 fL 80-98 MEAN CELL HGB (test code=MCH) 28.1 picogram 27.0-33.0 MEAN CELL HGB CONCETRATION (test code=MCHC) 29.7 gram/dL 33.0-36.0 RED CELL DISTRIBUTION WIDTH (test code=RDW) 19.0 % 11.6-16.2 RED CELL DISTRIBUTION WIDTH SD (test code=RDW-SD) 65.7 fL 37.0-51.0 PLATELET COUNT (test code=PLT) 165 K/mm3 150-450 MEAN PLATELET VOLUME (test code=MPV) 12.3 fL 6.7-11.0 IMMATURE GRANULOCYTE % (test code=IG%) 0.5 % 0.0-5.0 NUCLEATED RBC % (test code=NRBC%) 0.0 % 0-0 NEUTROPHIL # (test code=NT#) 7.93 K/mm3 1.8-7.7 IMMATURE GRANULOCYTE # (test code=IG#) 0.05 x10 3/uL 0-0.03 LYMPHOCYTE # (test code=LY#) 2.07 K/mm3 1.0-5.0 MONOCYTE # (test code=MO#) 0.47 K/mm3 0-0.8 EOSINOPHIL # (test code=EO#) 0.27 K/mm3 0.0-0.5 BASOPHIL # (test code=BA#) 0.07 K/mm3 0.0-0.2 NUCLEATED RBC # (test code=NRBC#) 0.00 K/mm3 0.0-0.1 MANUAL DIFF REQUIRED (test code=MDIFF) YES STAIN ACCEPTABILITY (test code=STN ACCEPTABLE) TOTAL CELLS COUNTED (test code=TCC) #CELLS SEGMENTED NEUTROPHILS (test code=SEG) % 39-69 LYMPHOCYTE (test code=LYMPH) % 25-55 MONOCYTE (test code=MON) % 0-10 EOSINOPHIL (test code=EOS) % 0.0-5.0 CABOT RINGS (test code=CAB) MORPHOLOGY COMMENT (test code=MOC) PLATELET ESTIMATE (test code=PLTEST) PLATELET MORPHOLOGY (test code=PLTMORPH) CHEST SINGLE (PORTABLE)2019-03-18 13:53:00 [place] [address] Patient Name: SIOBHAN BARBOSA MR #: [id number] : 1965 Age/Sex: 54/F Req #: [id number] Adm Physician: Ordered by: LAUREN CALLOWAY MD Report #: [id number] Location: ER Room/Bed: Procedure: [id number] DX/CHEST SINGLE (PORTABLE) Exam Date: 03/18/19 Sayra arzola Time: 1345 REPORT STATUS: Signed A single frontal view of the chest. HISTORY: UTI COMPARISON: Chest r adiograph January 07, 2019 DISCUSSION: Portable technique, limits sens itivity of the exam. Left anterior oblique rotation. Tubes/Lines: None Lungs and pleura: Marked interval reduction in the left pleural effusion ve rsus atelectasis. Patchy interstitial and airspace opacities at the left mid to lower lung. A trace to small left pleural effusion is possible. Heart and mediastinum: The cardiac appear(s) enlarged. Bones and soft tissue s: Chronic right clavicular fracture deformity. IMPRESSION: 1. L eft mid to lower thorax interstitial and airspace opacities. Consider pneumoni a, aspiration, atelectasis, and/or small effusion. Recommend short term follow up routine PA and lateral chest radiographs, in 6 to 8 weeks, to evaluate for resolution. 2. Cardiomegaly. Signed by: Dr. Adonis Patel D.O., M.M.M. on 03/18/2019 1:57 PM Dictated By: ADONIS PATEL DO Griffini isabelle Signed By: ADONIS PATEL DO on 03/18/191356 Transcribed By: JENNIFER on 1356 COPY TO: LAUREN CALLOWAY MD CHEST SINGLE (PORTABLE) 2019-01-07 07:29:00 [place] [address] Patient Name: SIOBHAN BARBOSA MR #: [id number] : 1965 Age/Sex: 53/F Req #: [id number] Adm Physician: KIM DILL MD Ordered by: KIM DILL MD Report #: [id number] Location: ICU Room/Bed: [place] [address] Procedure: [id number] DX /CHEST SINGLE (PORTABLE) Exam Date: 01/07/19 Exam Ti me: 0550 REPORT STATUS: Signed E XAMINATION: CHEST SINGLE (PORTABLE) INDICATION: Resp Failure 20190107 COMPARISON: 01/06/2019 FINDINGS: AP view TUBES and LINES: Unchanged right adjacent venous catheter with tip ov erlying the caval junction. LUNGS/pleura: Complete opacification of the left hemithorax due to a combination of pleural effusion and atelectasis remai n unchanged. Pulmonary edema in the right lung. No consolidations in the ri ght lung. Small right pleural effusion is unchanged. No pneumothorax. HEA RT AND MEDIASTINUM: The cardiomediastinal silhouette is obscured by the pleur al effusion. BONES AND SOFT TISSUES: No acute osseous lesion. Soft tiss ues are unremarkable. UPPER ABDOMEN: No free air under the diaphragm. IMPRESSION: Persistent complete opacification of the left hemithorax due to a combination of effusion and atelectasis. Signed by: Dr. Georgia Merino M.D. on 01/07/2019 7:31 AM Dictated By: GEORGIA MERINO MD 0 Transcribed By: JENNIFER on 01/07/19730 COPY TO: KIM DILL MD CHEST SINGLE (PORTABLE)2019-01-06 06:09:00 [place] [address] Patient Name: SIOBHAN BARBOSA MR #: [id number] : 1965 Age/Sex: 53/F Req #: [id number] Adm Physician: KIM DILL MD Ordered by: KIM DILL MD Report #: [id number] Location: ICU Room/Bed: [place] [address] Procedure: [id number] DX /CHEST SINGLE (PORTABLE) Exam Date: 01/06/19 Exam Ti me: 0515 REPORT STATUS: Signed E XAMINATION: CHEST SINGLE (PORTABLE) INDICATION: Resp Failure [id number] COMPARISON: 01/05/2019 FINDINGS: AP view TUBES and LINES: Interval extubation and removal of nasogastric tube. Stable right IJ central line. LUNGS and pleura: Lungs are well inflated. Co mplete opacification of the left lung. No significantly changed or slightly increased layering right pleural effusion. No visible pneumothorax. HEART AND MEDIASTINUM: The cardiomediastinal silhouette is unremarkable. AMAURY ZACHERY AND SOFT TISSUES: Old right clavicular fracture deformity. Soft tissues ar e unremarkable. UPPER ABDOMEN: No free air under the diaphragm. IM PRESSION: Interval extubation and removal of nasogastric tube. Complete opa cification of the left lung, representing increased left pleural effusion/atel ectasis. Underlying pneumonia cannot be excluded. Layering right pleural effus ion, unchanged or slightly increased from prior x-ray. Signed by: Dr. Holly Quintero MD on 01/06/2019 6:12 AM Dictated By: HOLLY QUINTERO MD Alyce ctronically Signed By: HOLLY QUINTERO MD on 01/06/19611 Transcribed By: AUGUSTINE Brito on 01/06/19611 COPY TO: KIM DILL MD THORACENTESIS/US [id number] 15:56:00 [place] [address] Patient Name: SIOBHAN BARBOSA MR #: [id number] : 1965 Age/Sex: 53/F Req #: [id number] Adm Physician: KIM DILL MD Ordered by: KIM DILL MD Report #: [id number] Location: ICU Room/Bed: [place] [address] Procedure: [id number] US /THORACENTESIS/US GUIDED Exam Date: 01/05/19 Exam Ti me: 1325 REPORT STATUS: Signed D ate and Time: 01/05/2019 Procedure: Ultrasound-guided left thoracentesis 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 The patient was placed in the right lateral decubitus position. The left chest wall was prepped and drap ed in standard sterile fashion. A suitable percutaneous approach to the small left pleural effusion was identified and 1% lidocaine was infiltrated into the skin and subcutaneous tissues for local anesthesia. Then under continuous son ographic guidance a 5 Romanian Yueh needle catheter was advanced into the left p leural space. The catheter was advanced off the needle and connected to vacuum bottle with evacuation of 700 cc straw-colored fluid. The catheter was removed and a sterile dressing was applied. The patient tolerated the procedure well without immediate complication. FINDINGS: Small left pleural effus ion. IMPRESSION: Successful ultrasound-guided left thoracentesis wi th evacuation of 700 cc straw-colored fluid. Signed by: Dr. Tomy Briceno M.D. on 01/05/2019 3:58 PM Dictated By: TOMY BRICENO MD Transcribed By: JENNIFER on 1557 COPY TO: KIM DILL MD CHEST SINGLE (PORTABLE) 2019-01-05 15:30:00 [place] [address] Patient Name: SIOBHAN BARBOSA MR #: [id number] : 1965 Age/Sex: 53/F Req #: [id number] Adm Physician: KIM DILL MD Ordered by: TOMY BRICENO MD Report #: [id number] Location: ICU Room/Bed: [place] [address] Procedure: [id number] DX/CHEST SINGLE (PORTABLE) Exam Date: 01/05/19 Exam Time: 1450 REPORT STATUS: Signed Examination: Single AP view of the chest. COMPARISON: Earlier 01/05/2019 INDICATION: Status post left thoracentesis DISCUSSION: See imp ression IMPRESSION: 1. The patient is rotated to the left. Stable p osition of support lines and tubes. 2. No pneumothorax status post lef t thoracentesis. 3. Layering right pleural effusion. 4. No acute osseo us abnormality. Posttraumatic deformity right clavicle. Signed by: Dr. Bear Briceno M.D. on 01/05/2019 3:32 PM Dictated By: TOMY BRICENO MD Elect ronically Signed By: TOMY BRICENO MD on 01/05/191531 Transcribed By: JENNIFER on 01/05/191531 COPY TO: TOMY BRICENO MD CHEST SINGLE (PORTABLE)2019-01-05 06:05:00 [place] [address] Patient Name: SIOBHAN BARBOSA MR #: [id number] : 1965 Age/Sex: 53/F Req #: [id number] Adm Physician: KIM DILL MD Ordered by: KIM DILL MD Report #: [id number] Location: ICU Room/Bed: ICU [facility] Procedure: [id number] DX /CHEST SINGLE (PORTABLE) Exam Date: Exam Time: REPORT STATUS: Signed EXAMINATION: CHEST SINGLE (PORTABLE) INDICATION: Resp Failure COMPARI SON: 01/04/2019 FINDINGS: AP view TUBES and LINES: Stable en dotracheal and nasogastric tubes. Stable right internal jugular central line. LUNGS: Limited by rotation. Lungs are well inflated. Again seen left lung volume loss and mediastinal shift to the left. Left mid to lower lung field opacification. PLEURA: Bilateral pleural effusions, left greater than r ight. HEART AND MEDIASTINUM: The cardiomediastinal silhouette is enlarged and partially obscured on this AP view. BONES AND SOFT TISSUES: No a cute osseous lesion. Soft tissues are unremarkable. UPPER ABDOMEN: No fr ee air under the diaphragm. IMPRESSION: No change from prior exam. Combination of left pleural effusion and atelectasis with volume loss and med iastinal shift to the left. Layering right pleural effusion. Signed by: Evon Quintero MD on 01/05/2019 6:08 AM Dictated By: HOLLY QUINTERO MD 7 Transcribed By: ISABEL WHARTON on 01/05/19607 COPY TO: KIM DILL MD CT ABDOMEN/PELVIS [id number] 13:13:00 [place] [address] Patient Name: SIOBHAN BARBOSA MR #: [id number] : 1965 Age/Sex: 53/F Req #: [id number] Adm Physician: KIM DILL MD Ordered by: KIM DILL MD Report #: [id number] Location: ICU Room/Bed: ICU [facility] Procedure: [id number] CT /CT ABDOMEN/PELVIS WO Exam Date: 01/04/19 Exam Time: 1230 REPORT STATUS: Signed EXAM: CT Abdomen and Pelvis WITHOUT contrast INDICATION: Abdominal wall hematoma 20190104 COMPARISON: CT abdomen/pelvis, 01/03/2019 TECH NIQUE: Abdomen and pelvis were scanned utilizing a multidetector helical scann er from the lung base to the pubic symphysis without administration of IV cont rast. Absence of intravenous contrast decreases sensitivity for detection of f ocal lesions and vascular pathology. Coronal and sagittal reformations were ob tained. Routine protocol was performed. Dose modulation, iterative reconst ruction, and/or weight based adjustment of the mA/kV was utilized to reduce th e radiation dose to as low as reasonably achievable. IV CONT RAST: None. ORAL CONTRAST: None RADIATION DOSE: Tota l DLP: 774.56 mGy*cm Estimated effective dose: (DLP x 0.015 x siz e factor) mSv COMPLICATIONS: None Limitations: Extensive stre ak artifact is produced by patient arms above and longside the abdomen. This r educes visualization of intra-abdominal organs and superficial soft tissues in the upper abdomen. FINDINGS: LINES and TUBES: Left double-J ureteral stent extending from the renal pelvis to the bladder. NG tube extending to the body of the stomach new since previous CT. LOWER THORAX: Moderate bilat eral pleural effusions, larger on the left, with bilateral lower lobe atelecta sis. Cardiomegaly with coronary artery calcification. HEPATOBILIARY: No focal hepatic lesions. No biliary ductal dilation. GALLBLADDER: There are multiple opaque gallstones. No wall thickening. SPLEEN: Splenic span 1 4.5 cm craniocaudal, splenomegaly. PANCREAS: No focal masses or ductal dil atation. ADRENALS: No adrenal nodules KIDNEYS/URETERS: Mild rig ht hydronephrosis, unchanged from last exam. No opaque calculus is seen in the right ureter. Again noted is a staghorn calculus in the upper portion of the left collecting system measuring 3.3 cm in length and multiple additional calc franc in the lower pole portion of the left collecting system measuring up to 1. 6 cm diameter. No left hydronephrosis. Left double-J ureteral stent is noted. No contour deforming renal mass identified to the limits of noncontrast imagin g. GI TRACT: No abnormal distention, wall thickening, or evidence of b owel obstruction. Large volume of retained stool in the rectosigmoid. The ap pendix is not conspicuously visualized. PELVIC ORGANS/BLADDER: Urinary bl adder is decompressed. No discrete abnormal mass or fluid collection in the pe lvis. LYMPH NODES: Again noted is prominence of iliac and retroperitoneal l ymph nodes. VESSELS: The abdominal aorta is atherosclerotic. Again noted is an IVC filter. PERITONEUM / RETROPERITONEUM: No pneumoperitoneum. Modera te ascites again noted. BONES: No acute or suspicious bony lesion. Marked disc space narrowing at T8-9. SOFT TISSUES: Superficial surrounding soft t issue is somewhat difficult to assess as the patient is turned partly on their left side. Left breast appears asymmetrically prominent likely due to positio lacy. There is asymmetric prominence of the left lateral abdominal wall which may be related to contusion or hematoma is suggested on the request. No discre te drainable subcutaneous fluid collection is seen. IMPRESSION: 1. Stable left double-J ureteral stent. Large left renal calculi again note d. 2. Interval placement of NG tube extending to the body of the stomach. 3 . There is asymmetric prominence of the left lateral abdominal and pelvic sof t tissues which may be accentuated by patient positioning, but may represent a bdominal wall contusion or hematoma as suggested on the requisition. No discre te drainable fluid collection is seen. 4. Again noted is splenomegaly and mod erate ascites. 5. Again noted is cholelithiasis with no CT evidence for reba cystitis. 6. Bilateral pleural effusions, small on the right and moderate on the left, and bilateral lower lobe atelectasis or pneumonia, unchanged from la st exam. Staff: [place] Signed by: Dr. Lupe Ledezma M.D. on 01/05/20 2:52 PM Dictated By: LUPE LEDEZMA MD 51 Transcribed By: JENNIFER on 01/04/191451 [employer] MANAGER Y TO: KIM DILL MD CHEST XRAY LINE [id number] 08:00:00 [place] [address] Patient Name: SIOBHAN BARBOSA MR #: [id number] : 1965 Age/Sex: 53/F Req #: [id number] Adm Physician: KIM DILL MD Ordered by: KIM DILL MD Report #: [id number] Location: ICU Room/Bed: ICU [facility] Procedure: [id number] DX /CHEST XRAY LINE PLACEMENT Exam Date: 01/04/19 Exam Time: 07 REPORT STATUS: Signed EXAM: CHEST XRAY LINE PLACEMENT, AP Portable DATE: 01/04/2019 Time stamp on ex am: 7:30 AM INDICATION: Line placement COMPARISON: 01/04/2019 chest x-ray per formed at 5:30 AM Exam is significantly rotated. FINDINGS: LINES/TUB ES: Endotracheal tube and nasogastric tube in unchanged positions. Right IJ ce ntral line has been placed. Tip of this overlies the SVC. LUNGS: Moderate p ulmonary edema. PLEURA: Bilateral pleural effusions. HEART AND MEDIAS TINUM: Enlarged cardiac silhouette BONES AND SOFT TISSUES: Mid shaft old fr acture of the right clavicle. IMPRESSION: 1. Status post right IJ cent ral line placement. 2. Cardiomegaly with pulmonary edema and bilateral effusio ns. Signed by: Dr. Anup Rao DO on 01/04/2019 8:03 AM Dictated B y: ANUP RAO DO 08 Transcribed By: JENNIFER on 01/04/19 08 COPY TO: KIM DILL MD CHEST SINGLE (PORTABLE)2019-01-04 06:41:00 [place] [address] Patient Name: SIOBHAN BARBOSA MR #: [id number] : 1965 Age/Sex: 53/F Req #: [id number] Adm Physician: KIM DILL MD Ordered by: KIM DILL MD Report #: [id number] Location: ICU Room/Bed: ICU [facility] Procedure: DX /CHEST SINGLE (PORTABLE) Exam Date: 01/04/19 Exam Ti me: 0540 REPORT STATUS: Signed E XAMINATION: CHEST SINGLE (PORTABLE) INDICATION: Resp Failure 20190104 COMPARISON: 01/03/2019 FINDINGS: AP view TUBES and LINES: Stable endotracheal tube. Nasogastric tube is visualized, extending below the inferior margin of the film. LUNGS and pleura: Lungs are well inflated. Unchanged bilateral airspace opacities and moderate to l arge left pleural effusion. No visible pneumothorax. HEART AND MEDIA STINUM: The cardiac silhouette is obscured. BONES AND SOFT TISSUES: N o acute osseous lesion. Soft tissues are unremarkable. UPPER ABDOMEN: No free air under the diaphragm. IMPRESSION: Nasogastric tube placemen t. Otherwise, no significant interval change from prior exam. Signed b y: Dr. Holly Quintero MD on 01/04/2019 6:43 AM Dictated By: HOLLY QUINTERO MD 2 Transcribed By: JENNIFER on 01/04/19642 COPY TO: KIM DILL MD CT ABDOMEN/PELVIS [id number] 04:52:00 [place] [address] Patient Name: SIOBHAN BARBOSA MR #: [id number] : 1965 Age/Sex: 53/F Req #: [id number] Adm Physician: Ordered by: BERENICE HEARN MD Report #: [id number] Location: ER Room/Bed: Procedure: CT/CT ABDOMEN/PELVIS WO Exam Date: 01/03/19 E xam Time: 409 REPORT STATUS: Araceli d EXAM: CT Abdomen and Pelvis WITHOUT contrast INDICATION: ABDOM EN DISTENDED 20190103 Y COMPARISON: Abdominal x-ray and ultraso und dated 12/07/2018 TECHNIQUE: Abdomen and pelvis were scanned utilizing a mul tidetector helical scanner from the lung base to the pubic symphysis without a dministration of IV contrast. Absence of intravenous contrast decreases sensit ivity for detection of focal lesions and vascular pathology. Coronal and sagit yung reformations were obtained. Routine protocol was performed. IV CON TRAST: None ORAL CONTRAST: None. COMPLICATIONS: None RADIATION DOSE: Total DLP: 707.47 mGy*cm Estimated effective dos e: (DLP x 0.015 x size factor) mSv CTDIvol has been reviewed. It is below the limits set by the Radiation Protocol Committee (RPC). FINDINGS: LINES and TUBES: Left nephroureteral stent. Suprapubic Gibson catheter. LOW ER THORAX: Bilateral heshc-mu-arebfwzu size pleural effusions with adjacent c onsolidations. Groundglass opacities of the visualized right lung. HEPATOBI LIARY: Cirrhotic liver. Limited for evaluation of renal parenchyma withou t intravenous contrast. No biliary ductal dilation. GALLBLADDER: Cholelith iasis. No wall thickening. SPLEEN: Splenomegaly. PANCREAS: No focal masses or ductal dilatation. ADRENALS: No adrenal nodules KIDNEY S/URETERS: Left renal staghorn calculi. Markedly atrophic left kidney. No lef t hydronephrosis. Left nephroureteral stents in place. Mild right hydronep hrosis. No right renal stones. GI TRACT: No evidence of bowel obstruction. Mild colonic wall thickening. Moderate rectal stool burden, could represent fe terell impaction. Normal appendix. Moderate gastric distention with fluid and air . PELVIC ORGANS/BLADDER: Bladder is collapsed by a suprapubic Gibson cathete r in place, limiting evaluation. Hysterectomy. LYMPH NODES: Prominent jasmyn ateral iliac chain and retroperitoneal lymph nodes. VESSELS: Very limited e valuation without intravenous contrast. Predominantly peripheral vascular athe rosclerotic disease. IVC filter in place. PERITONEUM / RETROPERITONEUM: No free air. Moderate volume ascites. BONES: Unremarkable. SOFT TISSUE S: Anasarca. IMPRESSION: 1. Very limited study without intr avenous contrast. 2. Cirrhotic liver with splenomegaly and moderate volume as cites. There is also anasarca and bilateral pleural effusions, suggestive of v olume overload. 3. Bilateral lower lobe consolidations, representing atelecta sis and/or pneumonia. Groundglass opacities of the visualized right lung, sugg estive of pulmonary edema. 4. Cholelithiasis without evidence of cholecysti tis. 5. Mild colonic wall thickening, likely due to underdistention and hyp oalbuminemia. 6. No evidence of bowel obstruction. 7. Staghorn left renal calculi. Atrophic left kidney. No left hydronephrosis. Left nephroureteral armani nt in place. 8. Mild right hydronephrosis without definite evidence of obstru ctive urolithiasis. Signed by: Dr. Holly Quintero MD on 01/03/2019 5:21 AM Dictated By: HOLLY QUINTERO MD 0 Transcribed By: JENNIFER on 01/03/19520 COPY TO: BERENICE FRANCISCO MD CHEST SINGLE (NOT PORTABLE)2019-01-03 03:10:00 [place] [address] Patient Name: SIOBHAN BARBOSA MR #: [id number] : 1965 Age/Sex: 53/F Req #: [id number] Adm Physician: Ordered by: BERENICE HEARN MD Report #: [id number] Location: ER Room/Bed: Procedure: 061 8-001 DX/CHEST SINGLE (NOT PORTABLE) Exam Date: 01/03/19 Exam Time: 242 REPORT STATUS: Signed EXAMINATION: CHEST SINGLE (NOT PORTABLE) INDICATION: SEPSIS [id number] 0243 Y COMPARISON: None FINDINGS: AP view TUBES and LINES: Endotracheal tube in place with tip approximately 2.3 cm above dave. LUNGS: Lungs are well inflated. Bilateral mid to lower lung field opacification, left greater than right. Pulmonary vascular congestion. PLEURA: No visible pneumothorax. HEART AND MEDIASTINUM: The cardiac silhouette is partially obscured, however appears enlarged. BONES AND SOFT TISSUES: No acute osseous lesion. Soft tissues are unre markable. UPPER ABDOMEN: No free air under the diaphragm. IMPRESSI ON: Bilateral mid to lower lung field opacifications, representing layering p leural effusions/atelectasis and/or pneumonia. Enlarged cardiac silhouette a nd central vascular congestion. Signed by: Dr. Holly Quintero MD on 01/04/20 3:13 AM Dictated By: HOLLY QUINTERO MD 2 Transcribed By: JENNIFER on 01/03/19312 COPY TO: BERENICE HEARN MD ABDOMEN-1VIEW (KUB)2018-12-07 20:40:00 [place] [address] Patient Name: EFRAIN BARBOSA MR #: [id number] : 1965 Age/Sex: 53/F Req #: [id number] Adm Physician: KIM DILL MD Ordered by: OMER LUNA MD Report #: [id number] Location: MED/SURG2 Room/Bed: [facility] Procedure: [id number] DX/ ABDOMEN-1VIEW (KUB) Exam Date: 12/07/18 Exam Time: 1 940 REPORT STATUS: Signed Exa m: Abdominal film Clinical History: Evaluate left stones and stent Co mparison: None. DISCUSSION: Exam is markedly limited by patient rotation. Left double-J internal ureteral stent in place with the upper pigtail project ing in the region of the left renal pelvis and lower pigtail in the region of the bladder. Multiple radiopaque densities project over the right renal shadow , with a multilobulated radiopaque density in projecting in the superior aspec t, likely representing portion of a staghorn calculus. No significant encrusta tion. A radiopaque catheter projects over the left lower abdomen with tip term inating in the region of the pelvis. No acute bony abnormalities. IVC filt er in place. Likely left-sided pleural effusion and associated atelectatic delroy nges. IMPRESSION: 1. Left double-J internal ureteral stent in place. 2. Left staghorn calculus. The staff physician below has personally rev iewed this exam on the date of dictation. Signed by: Dr. Randi Magaña M.D. on 12/07/2018 8:43 PM Dictated By: STACY Barnard 42 Transcribed By: JENNIFER on 12/07/182042 COPY TO: OMRE LUNA MD ABDOMEN [id number] 16:07:00 [place] [address] Patient Name: EFRAIN BARBOSA MR #: [id number] : 1965 Age/Sex: 53/F Req #: [id number] Adm Physician: KIM DILL MD Ordered by: KIM DILL MD Report #: [id number] Location: MED/SURG2 Room/Bed: 200-1 Procedure: [id number] US /US ABDOMEN COMPLETE Exam Date: Exam Time: REPORT STATUS: Signed EXAM: US ABDOMEN COMPLETE DATE: 12/07/2018 12:00 AM Time stamp on exam: INDICATION: Cir rhosis COMPARISON: None TECHNIQUE: Transverse and longitudinal brunson scale a nd color doppler sonographic images of the upper abdomen were obtained. FINDINGS: LIVER 12.1 cm in the right midclavicular line. Coarse echog enicity, nodular contour, no masses. SPLEEN Approximately 15 cm in maximu m diameter. Normal echogenicity, no masses. GALLBLADDER Multiple shadow ing calculi. The gallbladder wall is thickened, measuring 5 mm, without perich olecystic fluid. Negative sonographic Real's sign. BILE DUCTS No intr a nor extra-hepatic biliary dilation. Common bile duct measures 0.5 cm PA NCREAS: Poorly visualized. RIGHT KIDNEY: 8.2 cm Echogenicity: Normal Co llecting System: Mild hydronephrosis. Stones: None Cyst/Mass: None LE FT KIDNEY: Poorly visualized. VESSELS: Aorta: Nonaneurysmal Inferior Ve na Cava: Patent Main Portal Vein: 0.7 cm, normal size with hepatopetal flow. FREE FLUID: Small volume ascites throughout the abdomen. IMPRESSION: Cirrhosis with portal hypertension evidenced by small volume ascites and splen omegaly. Cholelithiasis with gallbladder wall thickening, likely related to underlying liver disease and/or hypoproteinemia in the absence of a positive sonographic Real sign. Mild right hydronephrosis of uncertain etiology. No proximal obstructing calculus identified. Poor visualization of midli ne structures and the left kidney as above. Signed by: Dr. Tomy Briceno M.D. on 12/07/2018 4:11 PM Dictated By: TOMY BRICENO MD Electronically S igned By: TOMY BRICENO MD on 12/07/18 1611 Transcribed By: JENNIFER on 12/07/18 1611 COPY TO: KIM DILL MD CBC W/AUTO [id number] 11:58:00 * Test Item Value Reference Range Comments WHITE BLOOD CELL (test code=WBC) 9.2 K/mm3 4.5-12.5 RED BLOOD CELL (test code=RBC) 3.09 mill/mm3 3.7-5.2 HEMOGLOBIN (test code=HGB) 8.5 gram/dL 11.5-15.5 HEMATOCRIT (test code=HCT) 27.7 % 36.0-46.0 MEAN CELL VOLUME (test code=MCV) 89.6 fL 80-98 MEAN CELL HGB (test code=MCH) 27.5 picogram 27.0-33.0 MEAN CELL HGB CONCETRATION (test code=MCHC) 30.7 gram/dL 33.0-36.0 RED CELL DISTRIBUTION WIDTH (test code=RDW) 18.6 % 11.6-16.2 RED CELL DISTRIBUTION WIDTH SD (test code=RDW-SD) 60.0 fL 37.0-51.0 PLATELET COUNT (test code=PLT) 47 K/mm3 150-450 Results called to [id number] by MADELAINEKNKetan 11/23/18 0919Critical results verified and read back by Nurse? Y MEAN PLATELET VOLUME (test code=MPV) TEST NOT PERFORMED fL 6.7-11.0 NEUTROPHIL % (test code=NT%) 57.5 % 39.0-69.0 IMMATURE GRANULOCYTE % (test code=IG%) 0.8 % 0.0-5.0 LYMPHOCYTE % (test code=LY%) 32.2 % 25.0-55.0 MONOCYTE % (test code=MO%) 7.3 % 0.0-10.0 EOSINOPHIL % (test code=EO%) 1.8 % 0.0-5.0 BASOPHIL % (test code=BA%) 0.4 % 0.0-1.0 NUCLEATED RBC % (test code=NRBC%) 0.0 % 0-0 NEUTROPHIL # (test code=NT#) 5.31 K/mm3 1.8-7.7 IMMATURE GRANULOCYTE # (test code=IG#) 0.07 x10 3/uL 0-0.03 LYMPHOCYTE # (test code=LY#) 2.97 K/mm3 1.0-5.0 MONOCYTE # (test code=MO#) 0.67 K/mm3 0-0.8 EOSINOPHIL # (test code=EO#) 0.17 K/mm3 0.0-0.5 BASOPHIL # (test code=BA#) 0.04 K/mm3 0.0-0.2 NUCLEATED RBC # (test code=NRBC#) 0.00 K/mm3 0.0-0.1 MANUAL DIFF REQUIRED (test code=MDIFF) NO, ONLY SCAN NEEDED DIFFERENTIAL [id number] 11:58:00* Test Item Value Reference Range Comments STAIN ACCEPTABILITY (test code=STN ACCEPTABLE) STAIN ACCEPTABLE POLYCHROMASIA (test code=POLC) 1+ POIKILOCYTOSIS (test code=POIK) 1+ ANISOCYTOSIS (test code=ANISO) 2+ MACROCYTOSIS (test code=MACR) 2+ TARGET CELLS (test code=TGT) 1+ PLATELET ESTIMATE (test code=PLTEST) DECREASED PLATELET MORPHOLOGY (test code=PLTMORPH) GIANT PLATELETS SEEN PLATELETS CLUMPING SEEN BASIC METABOLIC [id number] 10:14:00* Test Item Value Reference Range Comments SODIUM (test code=NA) 145 mmol/L 136-145 POTASSIUM (test code=K) 3.5 mmol/L 3.5-5.1 CHLORIDE (test code=CL) 111.0 mmol/L 98-107 CARBON DIOXIDE (test code=CO2) 26.0 mmol/L 21-32 ANION GAP (test code=GAP) 11.5 10-20 GLUCOSE (test code=GLU) 81 mg/dL 74-106 BLOOD UREA NITROGEN (test code=BUN) 49 mg/dL 7-18 GLOMERULAR FILTRATION RATE (test code=GFR) 21 mL/min >=60 Estimated GFR by using Modified MDRD formula.Chronic kidney disease is defined as either kidney damageor GFR <60 mL/min/1.73 m2 for >3 months. CREATININE (test code=CREAT) 2.40 mg/dL 0.55-1.02 Note change in reference range due to change in reagent. BUN/CREATININE RATIO (test code=BUN/CREA) 20.4 10-20 CALCIUM (test code=CA) 8.5 mg/dL 8.5-10.1 BASIC METABOLIC [id number] 09:52:00* Test Item Value Reference Range Comments SODIUM (test code=NA) 145 mmol/L 136-145 POTASSIUM (test code=K) 3.5 mmol/L 3.5-5.1 CHLORIDE (test code=CL) 111.0 mmol/L 98-107 CARBON DIOXIDE (test code=CO2) mmol/L 21-32 ANION GAP (test code=GAP) 10-20 GLUCOSE (test code=GLU) mg/dL 74-106 BLOOD UREA NITROGEN (test code=BUN) mg/dL 7-18 GLOMERULAR FILTRATION RATE (test code=GFR) mL/min >=60 CREATININE (test code=CREAT) mg/dL 0.55-1.02 BUN/CREATININE RATIO (test code=BUN/CREA) 10-20 CALCIUM (test code=CA) mg/dL 8.5-10.1 CBC W/AUTO [id number] 09:22:00* Test Item Value Reference Range Comments WHITE BLOOD CELL (test code=WBC) 9.2 K/mm3 4.5-12.5 RED BLOOD CELL (test code=RBC) 3.09 mill/mm3 3.7-5.2 HEMOGLOBIN (test code=HGB) 8.5 gram/dL 11.5-15.5 HEMATOCRIT (test code=HCT) 27.7 % 36.0-46.0 MEAN CELL VOLUME (test code=MCV) 89.6 fL 80-98 MEAN CELL HGB (test code=MCH) 27.5 picogram 27.0-33.0 MEAN CELL HGB CONCETRATION (test code=MCHC) 30.7 gram/dL 33.0-36.0 RED CELL DISTRIBUTION WIDTH (test code=RDW) 18.6 % 11.6-16.2 RED CELL DISTRIBUTION WIDTH SD (test code=RDW-SD) 60.0 fL 37.0-51.0 PLATELET COUNT (test code=PLT) 47 K/mm3 150-450 Results called to [id number]\\CRYSTAL by MADELAINEKNG1 11/23/18 0919Critical results verified and read back by Nurse? Y MEAN PLATELET VOLUME (test code=MPV) TEST NOT PERFORMED fL 6.7-11.0 NEUTROPHIL % (test code=NT%) 57.5 % 39.0-69.0 IMMATURE GRANULOCYTE % (test code=IG%) 0.8 % 0.0-5.0 LYMPHOCYTE % (test code=LY%) 32.2 % 25.0-55.0 MONOCYTE % (test code=MO%) 7.3 % 0.0-10.0 EOSINOPHIL % (test code=EO%) 1.8 % 0.0-5.0 BASOPHIL % (test code=BA%) 0.4 % 0.0-1.0 NUCLEATED RBC % (test code=NRBC%) 0.0 % 0-0 NEUTROPHIL # (test code=NT#) 5.31 K/mm3 1.8-7.7 IMMATURE GRANULOCYTE # (test code=IG#) 0.07 x10 3/uL 0-0.03 LYMPHOCYTE # (test code=LY#) 2.97 K/mm3 1.0-5.0 MONOCYTE # (test code=MO#) 0.67 K/mm3 0-0.8 EOSINOPHIL # (test code=EO#) 0.17 K/mm3 0.0-0.5 BASOPHIL # (test code=BA#) 0.04 K/mm3 0.0-0.2 NUCLEATED RBC # (test code=NRBC#) 0.00 K/mm3 0.0-0.1 MANUAL DIFF REQUIRED (test code=MDIFF) NO, ONLY SCAN NEEDED DIFFERENTIAL [id number] 09:22:00* Test Item Value Reference Range Comments STAIN ACCEPTABILITY (test code=STN ACCEPTABLE) CABOT RINGS (test code=CAB) MORPHOLOGY COMMENT (test code=MOC) PLATELET ESTIMATE (test code=PLTEST) PLATELET MORPHOLOGY (test code=PLTMORPH) CBC W/AUTO [id number] 09:22:00* Test Item Value Reference Range Comments WHITE BLOOD CELL (test code=WBC) 9.2 K/mm3 4.5-12.5 RED BLOOD CELL (test code=RBC) 3.09 mill/mm3 3.7-5.2 HEMOGLOBIN (test code=HGB) 8.5 gram/dL 11.5-15.5 HEMATOCRIT (test code=HCT) 27.7 % 36.0-46.0 MEAN CELL VOLUME (test code=MCV) 89.6 fL 80-98 MEAN CELL HGB (test code=MCH) 27.5 picogram 27.0-33.0 MEAN CELL HGB CONCETRATION (test code=MCHC) 30.7 gram/dL 33.0-36.0 RED CELL DISTRIBUTION WIDTH (test code=RDW) 18.6 % 11.6-16.2 RED CELL DISTRIBUTION WIDTH SD (test code=RDW-SD) 60.0 fL 37.0-51.0 PLATELET COUNT (test code=PLT) 47 K/mm3 150-450 Results called to [id number]\\FAIZA by ERIC 11/23/18 0919Critical results verified and read back by Nurse? Y MEAN PLATELET VOLUME (test code=MPV) TEST NOT PERFORMED fL 6.7-11.0 NEUTROPHIL % (test code=NT%) 57.5 % 39.0-69.0 IMMATURE GRANULOCYTE % (test code=IG%) 0.8 % 0.0-5.0 LYMPHOCYTE % (test code=LY%) 32.2 % 25.0-55.0 MONOCYTE % (test code=MO%) 7.3 % 0.0-10.0 EOSINOPHIL % (test code=EO%) 1.8 % 0.0-5.0 BASOPHIL % (test code=BA%) 0.4 % 0.0-1.0 NUCLEATED RBC % (test code=NRBC%) 0.0 % 0-0 NEUTROPHIL # (test code=NT#) 5.31 K/mm3 1.8-7.7 IMMATURE GRANULOCYTE # (test code=IG#) 0.07 x10 3/uL 0-0.03 LYMPHOCYTE # (test code=LY#) 2.97 K/mm3 1.0-5.0 MONOCYTE # (test code=MO#) 0.67 K/mm3 0-0.8 EOSINOPHIL # (test code=EO#) 0.17 K/mm3 0.0-0.5 BASOPHIL # (test code=BA#) 0.04 K/mm3 0.0-0.2 NUCLEATED RBC # (test code=NRBC#) 0.00 K/mm3 0.0-0.1 MANUAL DIFF REQUIRED (test code=MDIFF) NO, ONLY SCAN NEEDED DIFFERENTIAL [id number] 09:22:00* Test Item Value Reference Range Comments STAIN ACCEPTABILITY (test code=STN ACCEPTABLE) CABOT RINGS (test code=CAB) MORPHOLOGY COMMENT (test code=MOC) PLATELET ESTIMATE (test code=PLTEST) PLATELET MORPHOLOGY (test code=PLTMORPH) CBC W/AUTO [id number] 09:22:00* Test Item Value Reference Range Comments WHITE BLOOD CELL (test code=WBC) 9.2 K/mm3 4.5-12.5 RED BLOOD CELL (test code=RBC) 3.09 mill/mm3 3.7-5.2 HEMOGLOBIN (test code=HGB) 8.5 gram/dL 11.5-15.5 HEMATOCRIT (test code=HCT) 27.7 % 36.0-46.0 MEAN CELL VOLUME (test code=MCV) 89.6 fL 80-98 MEAN CELL HGB (test code=MCH) 27.5 picogram 27.0-33.0 MEAN CELL HGB CONCETRATION (test code=MCHC) 30.7 gram/dL 33.0-36.0 RED CELL DISTRIBUTION WIDTH (test code=RDW) 18.6 % 11.6-16.2 RED CELL DISTRIBUTION WIDTH SD (test code=RDW-SD) 60.0 fL 37.0-51.0 PLATELET COUNT (test code=PLT) 47 K/mm3 150-450 Results called to [id number] by ERIC 11/23/18 0919Critical results verified and read back by Nurse? Y MEAN PLATELET VOLUME (test code=MPV) TEST NOT PERFORMED fL 6.7-11.0 NEUTROPHIL % (test code=NT%) 57.5 % 39.0-69.0 IMMATURE GRANULOCYTE % (test code=IG%) 0.8 % 0.0-5.0 LYMPHOCYTE % (test code=LY%) 32.2 % 25.0-55.0 MONOCYTE % (test code=MO%) 7.3 % 0.0-10.0 EOSINOPHIL % (test code=EO%) 1.8 % 0.0-5.0 BASOPHIL % (test code=BA%) 0.4 % 0.0-1.0 NUCLEATED RBC % (test code=NRBC%) 0.0 % 0-0 NEUTROPHIL # (test code=NT#) 5.31 K/mm3 1.8-7.7 IMMATURE GRANULOCYTE # (test code=IG#) 0.07 x10 3/uL 0-0.03 LYMPHOCYTE # (test code=LY#) 2.97 K/mm3 1.0-5.0 MONOCYTE # (test code=MO#) 0.67 K/mm3 0-0.8 EOSINOPHIL # (test code=EO#) 0.17 K/mm3 0.0-0.5 BASOPHIL # (test code=BA#) 0.04 K/mm3 0.0-0.2 NUCLEATED RBC # (test code=NRBC#) 0.00 K/mm3 0.0-0.1 MANUAL DIFF REQUIRED (test code=MDIFF) NO, ONLY SCAN NEEDED DIFFERENTIAL [id number] 09:22:00* Test Item Value Reference Range Comments STAIN ACCEPTABILITY (test code=STN ACCEPTABLE) MORPHOLOGY COMMENT (test code=MOC) PLATELET ESTIMATE (test code=PLTEST) PLATELET MORPHOLOGY (test code=PLTMORPH) CBC W/AUTO [id number] 09:22:00* Test Item Value Reference Range Comments WHITE BLOOD CELL (test code=WBC) 9.2 K/mm3 4.5-12.5 RED BLOOD CELL (test code=RBC) 3.09 mill/mm3 3.7-5.2 HEMOGLOBIN (test code=HGB) 8.5 gram/dL 11.5-15.5 HEMATOCRIT (test code=HCT) 27.7 % 36.0-46.0 MEAN CELL VOLUME (test code=MCV) 89.6 fL 80-98 MEAN CELL HGB (test code=MCH) 27.5 picogram 27.0-33.0 MEAN CELL HGB CONCETRATION (test code=MCHC) 30.7 gram/dL 33.0-36.0 RED CELL DISTRIBUTION WIDTH (test code=RDW) 18.6 % 11.6-16.2 RED CELL DISTRIBUTION WIDTH SD (test code=RDW-SD) 60.0 fL 37.0-51.0 PLATELET COUNT (test code=PLT) 47 K/mm3 150-450 Results called to [id number]\\FAIZA by MADELAINEKNKetan 11/23/18 0919Critical results verified and read back by Nurse? Y MEAN PLATELET VOLUME (test code=MPV) TEST NOT PERFORMED fL 6.7-11.0 NEUTROPHIL % (test code=NT%) 57.5 % 39.0-69.0 IMMATURE GRANULOCYTE % (test code=IG%) 0.8 % 0.0-5.0 LYMPHOCYTE % (test code=LY%) 32.2 % 25.0-55.0 MONOCYTE % (test code=MO%) 7.3 % 0.0-10.0 EOSINOPHIL % (test code=EO%) 1.8 % 0.0-5.0 BASOPHIL % (test code=BA%) 0.4 % 0.0-1.0 NUCLEATED RBC % (test code=NRBC%) 0.0 % 0-0 NEUTROPHIL # (test code=NT#) 5.31 K/mm3 1.8-7.7 IMMATURE GRANULOCYTE # (test code=IG#) 0.07 x10 3/uL 0-0.03 LYMPHOCYTE # (test code=LY#) 2.97 K/mm3 1.0-5.0 MONOCYTE # (test code=MO#) 0.67 K/mm3 0-0.8 EOSINOPHIL # (test code=EO#) 0.17 K/mm3 0.0-0.5 BASOPHIL # (test code=BA#) 0.04 K/mm3 0.0-0.2 NUCLEATED RBC # (test code=NRBC#) 0.00 K/mm3 0.0-0.1 MANUAL DIFF REQUIRED (test code=MDIFF) NO, ONLY SCAN NEEDED DIFFERENTIAL [id number] 09:22:00* Test Item Value Reference Range Comments STAIN ACCEPTABILITY (test code=STN ACCEPTABLE) CABOT RINGS (test code=CAB) MORPHOLOGY COMMENT (test code=MOC) PLATELET ESTIMATE (test code=PLTEST) PLATELET MORPHOLOGY (test code=PLTMORPH) [id number] 13:11:00* Test Item Value Reference Range Comments CREATINE (test code=CRTN) 0.5 mg/dL 0.1-1.0 This test was developed and its performance characteristicsdetermined by [employer]. It has not been cleared orapproved by the Food and Drug Administration.Performed At: [address] [id number] Klein MD Ph:[phone] SPECIMEN COMMENTS: DRAWN PROM DOMINICK DRAINAGE SPECIMEN COMMENTS: NURSE WILL DRAW AND SEND TO [facility] STONE [id number] 12:04:00* Test Item Value Reference Range Comments KIDNEY STONE ANALYSIS (test code=STONEK) mm () Specimen received as fragments. SOURCE OF STONE (test code=STONESRC) URINARY STONE ANALYSIS COMMENT (test code=STONECOM) NO NIDUS VISUALIZED NIDUS Color: Brown Size : Specimen received as fragments. Composition: Percentage (Represents the % composition) Ca oxalate dihydrate 05 % Ca oxalate monohydr. 45 % Calcium phosphate 50 % Test performed at: [address] [address] STONE ANALYSIS (test code=STONE) () Photograph will follow under separate cover. WEIGHT OF STONE (test code=STONEWT) 62.5 mg () Test performed at: [place] [address] [place] [address] KIDNEY STONE [id number] 09:15:00* Test Item Value Reference Range Comments KIDNEY STONE ANALYSIS (test code=STONEK) mm () Specimen received as fragments. SOURCE OF STONE (test code=STONESRC) STONE ANALYSIS COMMENT (test code=STONECOM) NIDUS STONE ANALYSIS (test code=STONE) () Photograph will follow under separate cover. WEIGHT OF STONE (test code=STONEWT) 62.5 mg () Test performed [facility]: [facility] [id number] [place] [address] CBC W/AUTO [id number] 14:47:00* Test Item Value Reference Range Comments WHITE BLOOD CELL (test code=WBC) 8.2 K/mm3 4.5-12.5 RED BLOOD CELL (test code=RBC) 3.11 mill/mm3 3.7-5.2 HEMOGLOBIN (test code=HGB) 8.4 gram/dL 11.5-15.5 HEMATOCRIT (test code=HCT) 27.8 % 36.0-46.0 MEAN CELL VOLUME (test code=MCV) 89.4 fL 80-98 MEAN CELL HGB (test code=MCH) 27.0 picogram 27.0-33.0 MEAN CELL HGB CONCETRATION (test code=MCHC) 30.2 gram/dL 33.0-36.0 RED CELL DISTRIBUTION WIDTH (test code=RDW) 18.4 % 11.6-16.2 RED CELL DISTRIBUTION WIDTH SD (test code=RDW-SD) 59.8 fL 37.0-51.0 PLATELET COUNT (test code=PLT) 36 K/mm3 150-450 RESULT VERIFIED BY REPEAT ANALYSISCritical results verified and read back by Nurse? Y NEUTROPHIL % (test code=NT%) 55.5 % 39.0-69.0 IMMATURE GRANULOCYTE % (test code=IG%) 1.0 % 0.0-5.0 LYMPHOCYTE % (test code=LY%) 35.0 % 25.0-55.0 MONOCYTE % (test code=MO%) 6.5 % 0.0-10.0 EOSINOPHIL % (test code=EO%) 1.5 % 0.0-5.0 BASOPHIL % (test code=BA%) 0.5 % 0.0-1.0 NUCLEATED RBC % (test code=NRBC%) 0.0 % 0-0 NEUTROPHIL # (test code=NT#) 4.54 K/mm3 1.8-7.7 IMMATURE GRANULOCYTE # (test code=IG#) 0.08 x10 3/uL 0-0.03 LYMPHOCYTE # (test code=LY#) 2.86 K/mm3 1.0-5.0 MONOCYTE # (test code=MO#) 0.53 K/mm3 0-0.8 EOSINOPHIL # (test code=EO#) 0.12 K/mm3 0.0-0.5 BASOPHIL # (test code=BA#) 0.04 K/mm3 0.0-0.2 NUCLEATED RBC # (test code=NRBC#) 0.00 K/mm3 0.0-0.1 MANUAL DIFF REQUIRED (test code=MDIFF) NO, ONLY SCAN NEEDED SEE NOTE [id number] 14:47:00* Test Item Value Reference Range Comments STAIN ACCEPTABILITY (test code=STN ACCEPTABLE) STAIN ACCEPTABLE HYPOCHROMIA (test code=HYPO) 1+ ANISOCYTOSIS (test code=ANISO) 1+ MACROCYTOSIS (test code=MACR) 1+ PLATELET ESTIMATE (test code=PLTEST) DECREASED PLATELET MORPHOLOGY (test code=PLTMORPH) NORMAL SEE NOTE [id number] W/AUTO [id number] 13:25:00* Test Item Value Reference Range Comments WHITE BLOOD CELL (test code=WBC) 8.2 K/mm3 4.5-12.5 RED BLOOD CELL (test code=RBC) 3.11 mill/mm3 3.7-5.2 HEMOGLOBIN (test code=HGB) 8.4 gram/dL 11.5-15.5 HEMATOCRIT (test code=HCT) 27.8 % 36.0-46.0 MEAN CELL VOLUME (test code=MCV) 89.4 fL 80-98 MEAN CELL HGB (test code=MCH) 27.0 picogram 27.0-33.0 MEAN CELL HGB CONCETRATION (test code=MCHC) 30.2 gram/dL 33.0-36.0 RED CELL DISTRIBUTION WIDTH (test code=RDW) 18.4 % 11.6-16.2 RED CELL DISTRIBUTION WIDTH SD (test code=RDW-SD) 59.8 fL 37.0-51.0 PLATELET COUNT (test code=PLT) 36 K/mm3 150-450 RESULT VERIFIED BY REPEAT ANALYSISCritical results verified and read back by Nurse? Y NEUTROPHIL % (test code=NT%) 55.5 % 39.0-69.0 IMMATURE GRANULOCYTE % (test code=IG%) 1.0 % 0.0-5.0 LYMPHOCYTE % (test code=LY%) 35.0 % 25.0-55.0 MONOCYTE % (test code=MO%) 6.5 % 0.0-10.0 EOSINOPHIL % (test code=EO%) 1.5 % 0.0-5.0 BASOPHIL % (test code=BA%) 0.5 % 0.0-1.0 NUCLEATED RBC % (test code=NRBC%) 0.0 % 0-0 NEUTROPHIL # (test code=NT#) 4.54 K/mm3 1.8-7.7 IMMATURE GRANULOCYTE # (test code=IG#) 0.08 x10 3/uL 0-0.03 LYMPHOCYTE # (test code=LY#) 2.86 K/mm3 1.0-5.0 MONOCYTE # (test code=MO#) 0.53 K/mm3 0-0.8 EOSINOPHIL # (test code=EO#) 0.12 K/mm3 0.0-0.5 BASOPHIL # (test code=BA#) 0.04 K/mm3 0.0-0.2 NUCLEATED RBC # (test code=NRBC#) 0.00 K/mm3 0.0-0.1 MANUAL DIFF REQUIRED (test code=MDIFF) NO, ONLY SCAN NEEDED SEE NOTE [id number] 13:25:00* Test Item Value Reference Range Comments STAIN ACCEPTABILITY (test code=STN ACCEPTABLE) CABOT RINGS (test code=CAB) MORPHOLOGY COMMENT (test code=MOC) PLATELET ESTIMATE (test code=PLTEST) PLATELET MORPHOLOGY (test code=PLTMORPH) SEE NOTE [id number] W/AUTO [id number] 13:25:00* Test Item Value Reference Range Comments WHITE BLOOD CELL (test code=WBC) 8.2 K/mm3 4.5-12.5 RED BLOOD CELL (test code=RBC) 3.11 mill/mm3 3.7-5.2 HEMOGLOBIN (test code=HGB) 8.4 gram/dL 11.5-15.5 HEMATOCRIT (test code=HCT) 27.8 % 36.0-46.0 MEAN CELL VOLUME (test code=MCV) 89.4 fL 80-98 MEAN CELL HGB (test code=MCH) 27.0 picogram 27.0-33.0 MEAN CELL HGB CONCETRATION (test code=MCHC) 30.2 gram/dL 33.0-36.0 RED CELL DISTRIBUTION WIDTH (test code=RDW) 18.4 % 11.6-16.2 RED CELL DISTRIBUTION WIDTH SD (test code=RDW-SD) 59.8 fL 37.0-51.0 PLATELET COUNT (test code=PLT) 36 K/mm3 150-450 RESULT VERIFIED BY REPEAT ANALYSISCritical results verified and read back by Nurse? Y NEUTROPHIL % (test code=NT%) 55.5 % 39.0-69.0 IMMATURE GRANULOCYTE % (test code=IG%) 1.0 % 0.0-5.0 LYMPHOCYTE % (test code=LY%) 35.0 % 25.0-55.0 MONOCYTE % (test code=MO%) 6.5 % 0.0-10.0 EOSINOPHIL % (test code=EO%) 1.5 % 0.0-5.0 BASOPHIL % (test code=BA%) 0.5 % 0.0-1.0 NUCLEATED RBC % (test code=NRBC%) 0.0 % 0-0 NEUTROPHIL # (test code=NT#) 4.54 K/mm3 1.8-7.7 IMMATURE GRANULOCYTE # (test code=IG#) 0.08 x10 3/uL 0-0.03 LYMPHOCYTE # (test code=LY#) 2.86 K/mm3 1.0-5.0 MONOCYTE # (test code=MO#) 0.53 K/mm3 0-0.8 EOSINOPHIL # (test code=EO#) 0.12 K/mm3 0.0-0.5 BASOPHIL # (test code=BA#) 0.04 K/mm3 0.0-0.2 NUCLEATED RBC # (test code=NRBC#) 0.00 K/mm3 0.0-0.1 MANUAL DIFF REQUIRED (test code=MDIFF) NO, ONLY SCAN NEEDED SEE NOTE [id number] 13:25:00* Test Item Value Reference Range Comments STAIN ACCEPTABILITY (test code=STN ACCEPTABLE) MORPHOLOGY COMMENT (test code=MOC) PLATELET ESTIMATE (test code=PLTEST) PLATELET MORPHOLOGY (test code=PLTMORPH) SEE NOTE [id number] W/AUTO [id number] 13:24:00* Test Item Value Reference Range Comments WHITE BLOOD CELL (test code=WBC) 8.2 K/mm3 4.5-12.5 RED BLOOD CELL (test code=RBC) 3.11 mill/mm3 3.7-5.2 HEMOGLOBIN (test code=HGB) 8.4 gram/dL 11.5-15.5 HEMATOCRIT (test code=HCT) 27.8 % 36.0-46.0 MEAN CELL VOLUME (test code=MCV) 89.4 fL 80-98 MEAN CELL HGB (test code=MCH) 27.0 picogram 27.0-33.0 MEAN CELL HGB CONCETRATION (test code=MCHC) 30.2 gram/dL 33.0-36.0 RED CELL DISTRIBUTION WIDTH (test code=RDW) 18.4 % 11.6-16.2 RED CELL DISTRIBUTION WIDTH SD (test code=RDW-SD) 59.8 fL 37.0-51.0 PLATELET COUNT (test code=PLT) 36 K/mm3 150-450 RESULT VERIFIED BY REPEAT ANALYSISCritical results verified and read back by Nurse? Y NEUTROPHIL % (test code=NT%) 55.5 % 39.0-69.0 IMMATURE GRANULOCYTE % (test code=IG%) 1.0 % 0.0-5.0 LYMPHOCYTE % (test code=LY%) 35.0 % 25.0-55.0 MONOCYTE % (test code=MO%) 6.5 % 0.0-10.0 EOSINOPHIL % (test code=EO%) 1.5 % 0.0-5.0 BASOPHIL % (test code=BA%) 0.5 % 0.0-1.0 NUCLEATED RBC % (test code=NRBC%) 0.0 % 0-0 NEUTROPHIL # (test code=NT#) 4.54 K/mm3 1.8-7.7 IMMATURE GRANULOCYTE # (test code=IG#) 0.08 x10 3/uL 0-0.03 LYMPHOCYTE # (test code=LY#) 2.86 K/mm3 1.0-5.0 MONOCYTE # (test code=MO#) 0.53 K/mm3 0-0.8 EOSINOPHIL # (test code=EO#) 0.12 K/mm3 0.0-0.5 BASOPHIL # (test code=BA#) 0.04 K/mm3 0.0-0.2 NUCLEATED RBC # (test code=NRBC#) 0.00 K/mm3 0.0-0.1 MANUAL DIFF REQUIRED (test code=MDIFF) NO, ONLY SCAN NEEDED SEE NOTE [id number] 13:24:00* Test Item Value Reference Range Comments STAIN ACCEPTABILITY (test code=STN ACCEPTABLE) CABOT RINGS (test code=CAB) MORPHOLOGY COMMENT (test code=MOC) PLATELET ESTIMATE (test code=PLTEST) PLATELET MORPHOLOGY (test code=PLTMORPH) SEE NOTE [id number] W/AUTO [id number] 13:24:00* Test Item Value Reference Range Comments WHITE BLOOD CELL (test code=WBC) 8.2 K/mm3 4.5-12.5 RED BLOOD CELL (test code=RBC) 3.11 mill/mm3 3.7-5.2 HEMOGLOBIN (test code=HGB) 8.4 gram/dL 11.5-15.5 HEMATOCRIT (test code=HCT) 27.8 % 36.0-46.0 MEAN CELL VOLUME (test code=MCV) 89.4 fL 80-98 MEAN CELL HGB (test code=MCH) 27.0 picogram 27.0-33.0 MEAN CELL HGB CONCETRATION (test code=MCHC) 30.2 gram/dL 33.0-36.0 RED CELL DISTRIBUTION WIDTH (test code=RDW) 18.4 % 11.6-16.2 RED CELL DISTRIBUTION WIDTH SD (test code=RDW-SD) 59.8 fL 37.0-51.0 PLATELET COUNT (test code=PLT) 36 K/mm3 150-450 RESULT VERIFIED BY REPEAT ANALYSISCritical results verified and read back by Nurse? Y NEUTROPHIL % (test code=NT%) 55.5 % 39.0-69.0 IMMATURE GRANULOCYTE % (test code=IG%) 1.0 % 0.0-5.0 LYMPHOCYTE % (test code=LY%) 35.0 % 25.0-55.0 MONOCYTE % (test code=MO%) 6.5 % 0.0-10.0 EOSINOPHIL % (test code=EO%) 1.5 % 0.0-5.0 BASOPHIL % (test code=BA%) 0.5 % 0.0-1.0 NUCLEATED RBC % (test code=NRBC%) 0.0 % 0-0 NEUTROPHIL # (test code=NT#) 4.54 K/mm3 1.8-7.7 IMMATURE GRANULOCYTE # (test code=IG#) 0.08 x10 3/uL 0-0.03 LYMPHOCYTE # (test code=LY#) 2.86 K/mm3 1.0-5.0 MONOCYTE # (test code=MO#) 0.53 K/mm3 0-0.8 EOSINOPHIL # (test code=EO#) 0.12 K/mm3 0.0-0.5 BASOPHIL # (test code=BA#) 0.04 K/mm3 0.0-0.2 NUCLEATED RBC # (test code=NRBC#) 0.00 K/mm3 0.0-0.1 MANUAL DIFF REQUIRED (test code=MDIFF) NO, ONLY SCAN NEEDED SEE NOTE [id number] 13:24:00* Test Item Value Reference Range Comments STAIN ACCEPTABILITY (test code=STN ACCEPTABLE) CABOT RINGS (test code=CAB) MORPHOLOGY COMMENT (test code=MOC) PLATELET ESTIMATE (test code=PLTEST) PLATELET MORPHOLOGY (test code=PLTMORPH) SEE NOTE [id number] METABOLIC [id number] 13:06:00* Test Item Value Reference Range Comments SODIUM (test code=NA) 144 mmol/L 136-145 POTASSIUM (test code=K) 3.5 mmol/L 3.5-5.1 CHLORIDE (test code=CL) 109.0 mmol/L 98-107 CARBON DIOXIDE (test code=CO2) 25.0 mmol/L 21-32 ANION GAP (test code=GAP) 13.5 10-20 GLUCOSE (test code=GLU) 95 mg/dL 74-106 BLOOD UREA NITROGEN (test code=BUN) 49 mg/dL 7-18 GLOMERULAR FILTRATION RATE (test code=GFR) 23 mL/min >=60 Estimated GFR by using Modified MDRD formula.Chronic kidney disease is defined as either kidney damageor GFR <60 mL/min/1.73 m2 for >3 months. CREATININE (test code=CREAT) 2.20 mg/dL 0.55-1.02 Note change in reference range due to change in reagent. BUN/CREATININE RATIO (test code=BUN/CREA) 22.3 10-20 CALCIUM (test code=CA) 8.1 mg/dL 8.5-10.1 PT IS UNCOOPERATIVE, COME AFTER BREAKFAST AND TRY AGAIN RAMESH DARBY V.LAB.SS1 0 11/21/18 [id number] [id number] 13:00:00* Test Item Value Reference Range Comments LACTIC ACID (test code=LACT) 1.2 mmol/L 0.4-1.9 CBC W/AUTO [id number] 10:18:00* Test Item Value Reference Range Comments WHITE BLOOD CELL (test code=WBC) 7.1 K/mm3 4.5-12.5 RED BLOOD CELL (test code=RBC) 2.78 mill/mm3 3.7-5.2 HEMOGLOBIN (test code=HGB) 7.8 gram/dL 11.5-15.5 HEMATOCRIT (test code=HCT) 25.2 % 36.0-46.0 MEAN CELL VOLUME (test code=MCV) 90.6 fL 80-98 MEAN CELL HGB (test code=MCH) 28.1 picogram 27.0-33.0 MEAN CELL HGB CONCETRATION (test code=MCHC) 31.0 gram/dL 33.0-36.0 RED CELL DISTRIBUTION WIDTH (test code=RDW) 18.3 % 11.6-16.2 RED CELL DISTRIBUTION WIDTH SD (test code=RDW-SD) 60.0 fL 37.0-51.0 PLATELET COUNT (test code=PLT) 37 K/mm3 150-450 Results called to [id number] by V.LAB.JQ 11/20/18 0619Critical results verified and read back by Nurse? Y MEAN PLATELET VOLUME (test code=MPV) 12.4 fL 6.7-11.0 NEUTROPHIL % (test code=NT%) 51.2 % 39.0-69.0 IMMATURE GRANULOCYTE % (test code=IG%) 0.7 % 0.0-5.0 LYMPHOCYTE % (test code=LY%) 39.7 % 25.0-55.0 MONOCYTE % (test code=MO%) 6.5 % 0.0-10.0 EOSINOPHIL % (test code=EO%) 1.5 % 0.0-5.0 BASOPHIL % (test code=BA%) 0.4 % 0.0-1.0 NUCLEATED RBC % (test code=NRBC%) 0.0 % 0-0 NEUTROPHIL # (test code=NT#) 3.65 K/mm3 1.8-7.7 IMMATURE GRANULOCYTE # (test code=IG#) 0.05 x10 3/uL 0-0.03 LYMPHOCYTE # (test code=LY#) 2.83 K/mm3 1.0-5.0 MONOCYTE # (test code=MO#) 0.46 K/mm3 0-0.8 EOSINOPHIL # (test code=EO#) 0.11 K/mm3 0.0-0.5 BASOPHIL # (test code=BA#) 0.03 K/mm3 0.0-0.2 NUCLEATED RBC # (test code=NRBC#) 0.00 K/mm3 0.0-0.1 MANUAL DIFF REQUIRED (test code=MDIFF) NO, ONLY SCAN NEEDED DIFFERENTIAL [id number] 10:18:00* Test Item Value Reference Range Comments STAIN ACCEPTABILITY (test code=STN ACCEPTABLE) STAIN ACCEPTABLE POLYCHROMASIA (test code=POLC) 1+ HYPOCHROMIA (test code=HYPO) 1+ POIKILOCYTOSIS (test code=POIK) 1+ ANISOCYTOSIS (test code=ANISO) 1+ PLATELET ESTIMATE (test code=PLTEST) DECREASED PLATELET MORPHOLOGY (test code=PLTMORPH) NORMAL COMPREHENSIVE METABOLIC [id number] 07:34:00* Test Item Value Reference Range Comments SODIUM (test code=NA) 142 mmol/L 136-145 POTASSIUM (test code=K) 3.7 mmol/L 3.5-5.1 CHLORIDE (test code=CL) 108.0 mmol/L 98-107 CARBON DIOXIDE (test code=CO2) 26.0 mmol/L 21-32 ANION GAP (test code=GAP) 11.7 10-20 GLUCOSE (test code=GLU) 74 mg/dL 74-106 BLOOD UREA NITROGEN (test code=BUN) 48 mg/dL 7-18 GLOMERULAR FILTRATION RATE (test code=GFR) 23 mL/min >=60 Estimated GFR by using Modified MDRD formula.Chronic kidney disease is defined as either kidney damageor GFR <60 mL/min/1.73 m2 for >3 months. CREATININE (test code=CREAT) 2.20 mg/dL 0.55-1.02 Note change in reference range due to change in reagent. BUN/CREATININE RATIO (test code=BUN/CREA) 21.8 10-20 TOTAL PROTEIN (test code=PROT) 5.1 gram/dL 6.4-8.2 ALBUMIN (test code=ALB) 1.2 g/dL 3.4-5.0 GLOBULIN (test code=GLOB) 3.9 gram/dL 2.7-4.2 ALBUMIN/GLOBULIN RATIO (test code=A/G) 0.3 0.75-1.50 CALCIUM (test code=CA) 7.6 mg/dL 8.5-10.1 BILIRUBIN TOTAL (test code=BILT) 2.40 mg/dL 0.0-1.0 SGOT/AST (test code=AST) 74 IUnit/L 15-37 SGPT/ALT (test code=ALT) 32 IUnit/L 12-78 ALKALINE PHOSPHATASE TOTAL (test code=ALKP) 465 IUnit/L 45-117 Note change in reference range due to change in reagent. URIC [id number] 07:34:00* Test Item Value Reference Range Comments URIC ACID (test code=URIC) 10.1 mg/dL 2.6-7.2 PARATHYROID HORMONE [id number] 07:34:00* Test Item Value Reference Range Comments PARATHYROID HORMONE INTACT (test code=PARAI) 115.30 pgram/mL 8.4-88 CBC W/AUTO [id number] 06:20:00* Test Item Value Reference Range Comments WHITE BLOOD CELL (test code=WBC) 7.1 K/mm3 4.5-12.5 RED BLOOD CELL (test code=RBC) 2.78 mill/mm3 3.7-5.2 HEMOGLOBIN (test code=HGB) 7.8 gram/dL 11.5-15.5 HEMATOCRIT (test code=HCT) 25.2 % 36.0-46.0 MEAN CELL VOLUME (test code=MCV) 90.6 fL 80-98 MEAN CELL HGB (test code=MCH) 28.1 picogram 27.0-33.0 MEAN CELL HGB CONCETRATION (test code=MCHC) 31.0 gram/dL 33.0-36.0 RED CELL DISTRIBUTION WIDTH (test code=RDW) 18.3 % 11.6-16.2 RED CELL DISTRIBUTION WIDTH SD (test code=RDW-SD) 60.0 fL 37.0-51.0 PLATELET COUNT (test code=PLT) 37 K/mm3 150-450 Results called to [id number] by MARIUM 11/20/18 0619Critical results verified and read back by Nurse? Y MEAN PLATELET VOLUME (test code=MPV) 12.4 fL 6.7-11.0 NEUTROPHIL % (test code=NT%) 51.2 % 39.0-69.0 IMMATURE GRANULOCYTE % (test code=IG%) 0.7 % 0.0-5.0 LYMPHOCYTE % (test code=LY%) 39.7 % 25.0-55.0 MONOCYTE % (test code=MO%) 6.5 % 0.0-10.0 EOSINOPHIL % (test code=EO%) 1.5 % 0.0-5.0 BASOPHIL % (test code=BA%) 0.4 % 0.0-1.0 NUCLEATED RBC % (test code=NRBC%) 0.0 % 0-0 NEUTROPHIL # (test code=NT#) 3.65 K/mm3 1.8-7.7 IMMATURE GRANULOCYTE # (test code=IG#) 0.05 x10 3/uL 0-0.03 LYMPHOCYTE # (test code=LY#) 2.83 K/mm3 1.0-5.0 MONOCYTE # (test code=MO#) 0.46 K/mm3 0-0.8 EOSINOPHIL # (test code=EO#) 0.11 K/mm3 0.0-0.5 BASOPHIL # (test code=BA#) 0.03 K/mm3 0.0-0.2 NUCLEATED RBC # (test code=NRBC#) 0.00 K/mm3 0.0-0.1 MANUAL DIFF REQUIRED (test code=MDIFF) NO, ONLY SCAN NEEDED DIFFERENTIAL [id number] 06:20:00* Test Item Value Reference Range Comments STAIN ACCEPTABILITY (test code=STN ACCEPTABLE) CABOT RINGS (test code=CAB) MORPHOLOGY COMMENT (test code=MOC) PLATELET ESTIMATE (test code=PLTEST) PLATELET MORPHOLOGY (test code=PLTMORPH) CBC W/AUTO [id number] 06:20:00* Test Item Value Reference Range Comments WHITE BLOOD CELL (test code=WBC) 7.1 K/mm3 4.5-12.5 RED BLOOD CELL (test code=RBC) 2.78 mill/mm3 3.7-5.2 HEMOGLOBIN (test code=HGB) 7.8 gram/dL 11.5-15.5 HEMATOCRIT (test code=HCT) 25.2 % 36.0-46.0 MEAN CELL VOLUME (test code=MCV) 90.6 fL 80-98 MEAN CELL HGB (test code=MCH) 28.1 picogram 27.0-33.0 MEAN CELL HGB CONCETRATION (test code=MCHC) 31.0 gram/dL 33.0-36.0 RED CELL DISTRIBUTION WIDTH (test code=RDW) 18.3 % 11.6-16.2 RED CELL DISTRIBUTION WIDTH SD (test code=RDW-SD) 60.0 fL 37.0-51.0 PLATELET COUNT (test code=PLT) 37 K/mm3 150-450 Results called to [id number] by MARIUM 11/20/18 0619Critical results verified and read back by Nurse? Y MEAN PLATELET VOLUME (test code=MPV) 12.4 fL 6.7-11.0 NEUTROPHIL % (test code=NT%) 51.2 % 39.0-69.0 IMMATURE GRANULOCYTE % (test code=IG%) 0.7 % 0.0-5.0 LYMPHOCYTE % (test code=LY%) 39.7 % 25.0-55.0 MONOCYTE % (test code=MO%) 6.5 % 0.0-10.0 EOSINOPHIL % (test code=EO%) 1.5 % 0.0-5.0 BASOPHIL % (test code=BA%) 0.4 % 0.0-1.0 NUCLEATED RBC % (test code=NRBC%) 0.0 % 0-0 NEUTROPHIL # (test code=NT#) 3.65 K/mm3 1.8-7.7 IMMATURE GRANULOCYTE # (test code=IG#) 0.05 x10 3/uL 0-0.03 LYMPHOCYTE # (test code=LY#) 2.83 K/mm3 1.0-5.0 MONOCYTE # (test code=MO#) 0.46 K/mm3 0-0.8 EOSINOPHIL # (test code=EO#) 0.11 K/mm3 0.0-0.5 BASOPHIL # (test code=BA#) 0.03 K/mm3 0.0-0.2 NUCLEATED RBC # (test code=NRBC#) 0.00 K/mm3 0.0-0.1 MANUAL DIFF REQUIRED (test code=MDIFF) NO, ONLY SCAN NEEDED DIFFERENTIAL [id number] 06:20:00* Test Item Value Reference Range Comments STAIN ACCEPTABILITY (test code=STN ACCEPTABLE) MORPHOLOGY COMMENT (test code=MOC) PLATELET ESTIMATE (test code=PLTEST) PLATELET MORPHOLOGY (test code=PLTMORPH) CBC W/AUTO [id number] 06:20:00* Test Item Value Reference Range Comments WHITE BLOOD CELL (test code=WBC) 7.1 K/mm3 4.5-12.5 RED BLOOD CELL (test code=RBC) 2.78 mill/mm3 3.7-5.2 HEMOGLOBIN (test code=HGB) 7.8 gram/dL 11.5-15.5 HEMATOCRIT (test code=HCT) 25.2 % 36.0-46.0 MEAN CELL VOLUME (test code=MCV) 90.6 fL 80-98 MEAN CELL HGB (test code=MCH) 28.1 picogram 27.0-33.0 MEAN CELL HGB CONCETRATION (test code=MCHC) 31.0 gram/dL 33.0-36.0 RED CELL DISTRIBUTION WIDTH (test code=RDW) 18.3 % 11.6-16.2 RED CELL DISTRIBUTION WIDTH SD (test code=RDW-SD) 60.0 fL 37.0-51.0 PLATELET COUNT (test code=PLT) 37 K/mm3 150-450 Results called to [id number] by MARIUM 11/20/18 0619Critical results verified and read back by Nurse? Y MEAN PLATELET VOLUME (test code=MPV) 12.4 fL 6.7-11.0 NEUTROPHIL % (test code=NT%) 51.2 % 39.0-69.0 IMMATURE GRANULOCYTE % (test code=IG%) 0.7 % 0.0-5.0 LYMPHOCYTE % (test code=LY%) 39.7 % 25.0-55.0 MONOCYTE % (test code=MO%) 6.5 % 0.0-10.0 EOSINOPHIL % (test code=EO%) 1.5 % 0.0-5.0 BASOPHIL % (test code=BA%) 0.4 % 0.0-1.0 NUCLEATED RBC % (test code=NRBC%) 0.0 % 0-0 NEUTROPHIL # (test code=NT#) 3.65 K/mm3 1.8-7.7 IMMATURE GRANULOCYTE # (test code=IG#) 0.05 x10 3/uL 0-0.03 LYMPHOCYTE # (test code=LY#) 2.83 K/mm3 1.0-5.0 MONOCYTE # (test code=MO#) 0.46 K/mm3 0-0.8 EOSINOPHIL # (test code=EO#) 0.11 K/mm3 0.0-0.5 BASOPHIL # (test code=BA#) 0.03 K/mm3 0.0-0.2 NUCLEATED RBC # (test code=NRBC#) 0.00 K/mm3 0.0-0.1 MANUAL DIFF REQUIRED (test code=MDIFF) NO, ONLY SCAN NEEDED DIFFERENTIAL [id number] 06:20:00* Test Item Value Reference Range Comments STAIN ACCEPTABILITY (test code=STN ACCEPTABLE) MORPHOLOGY COMMENT (test code=MOC) PLATELET ESTIMATE (test code=PLTEST) PLATELET MORPHOLOGY (test code=PLTMORPH) CBC W/AUTO [id number] 06:19:00* Test Item Value Reference Range Comments WHITE BLOOD CELL (test code=WBC) 7.1 K/mm3 4.5-12.5 RED BLOOD CELL (test code=RBC) 2.78 mill/mm3 3.7-5.2 HEMOGLOBIN (test code=HGB) 7.8 gram/dL 11.5-15.5 HEMATOCRIT (test code=HCT) 25.2 % 36.0-46.0 MEAN CELL VOLUME (test code=MCV) 90.6 fL 80-98 MEAN CELL HGB (test code=MCH) 28.1 picogram 27.0-33.0 MEAN CELL HGB CONCETRATION (test code=MCHC) 31.0 gram/dL 33.0-36.0 RED CELL DISTRIBUTION WIDTH (test code=RDW) 18.3 % 11.6-16.2 RED CELL DISTRIBUTION WIDTH SD (test code=RDW-SD) 60.0 fL 37.0-51.0 PLATELET COUNT (test code=PLT) 37 K/mm3 150-450 Results called to [id number] by MARIUM 11/20/18 0619Critical results verified and read back by Nurse? Y MEAN PLATELET VOLUME (test code=MPV) 12.4 fL 6.7-11.0 NEUTROPHIL % (test code=NT%) 51.2 % 39.0-69.0 IMMATURE GRANULOCYTE % (test code=IG%) 0.7 % 0.0-5.0 LYMPHOCYTE % (test code=LY%) 39.7 % 25.0-55.0 MONOCYTE % (test code=MO%) 6.5 % 0.0-10.0 EOSINOPHIL % (test code=EO%) 1.5 % 0.0-5.0 BASOPHIL % (test code=BA%) 0.4 % 0.0-1.0 NUCLEATED RBC % (test code=NRBC%) 0.0 % 0-0 NEUTROPHIL # (test code=NT#) 3.65 K/mm3 1.8-7.7 IMMATURE GRANULOCYTE # (test code=IG#) 0.05 x10 3/uL 0-0.03 LYMPHOCYTE # (test code=LY#) 2.83 K/mm3 1.0-5.0 MONOCYTE # (test code=MO#) 0.46 K/mm3 0-0.8 EOSINOPHIL # (test code=EO#) 0.11 K/mm3 0.0-0.5 BASOPHIL # (test code=BA#) 0.03 K/mm3 0.0-0.2 NUCLEATED RBC # (test code=NRBC#) 0.00 K/mm3 0.0-0.1 MANUAL DIFF REQUIRED (test code=MDIFF) NO, ONLY SCAN NEEDED DIFFERENTIAL [id number] 06:19:00* Test Item Value Reference Range Comments STAIN ACCEPTABILITY (test code=STN ACCEPTABLE) CABOT RINGS (test code=CAB) MORPHOLOGY COMMENT (test code=MOC) PLATELET ESTIMATE (test code=PLTEST) PLATELET MORPHOLOGY (test code=PLTMORPH) COMPREHENSIVE METABOLIC [id number] 06:10:00* Test Item Value Reference Range Comments SODIUM (test code=NA) 142 mmol/L 136-145 POTASSIUM (test code=K) 3.7 mmol/L 3.5-5.1 CHLORIDE (test code=CL) 108.0 mmol/L 98-107 CARBON DIOXIDE (test code=CO2) 26.0 mmol/L 21-32 ANION GAP (test code=GAP) 11.7 10-20 GLUCOSE (test code=GLU) 74 mg/dL 74-106 BLOOD UREA NITROGEN (test code=BUN) 48 mg/dL 7-18 GLOMERULAR FILTRATION RATE (test code=GFR) 23 mL/min >=60 Estimated GFR by using Modified MDRD formula.Chronic kidney disease is defined as either kidney damageor GFR <60 mL/min/1.73 m2 for >3 months. CREATININE (test code=CREAT) 2.20 mg/dL 0.55-1.02 Note change in reference range due to change in reagent. BUN/CREATININE RATIO (test code=BUN/CREA) 21.8 10-20 TOTAL PROTEIN (test code=PROT) 5.1 gram/dL 6.4-8.2 ALBUMIN (test code=ALB) 1.2 g/dL 3.4-5.0 GLOBULIN (test code=GLOB) 3.9 gram/dL 2.7-4.2 ALBUMIN/GLOBULIN RATIO (test code=A/G) 0.3 0.75-1.50 CALCIUM (test code=CA) 7.6 mg/dL 8.5-10.1 BILIRUBIN TOTAL (test code=BILT) 2.40 mg/dL 0.0-1.0 SGOT/AST (test code=AST) 74 IUnit/L 15-37 SGPT/ALT (test code=ALT) 32 IUnit/L 12-78 ALKALINE PHOSPHATASE TOTAL (test code=ALKP) 465 IUnit/L 45-117 Note change in reference range due to change in reagent. URIC [id number] 06:10:00* Test Item Value Reference Range Comments URIC ACID (test code=URIC) 10.1 mg/dL 2.6-7.2 PARATHYROID HORMONE [id number] 06:10:00* Test Item Value Reference Range Comments PARATHYROID HORMONE INTACT (test code=PARAI) pgram/mL 8.4-88 COMPREHENSIVE METABOLIC [id number] 05:54:00* Test Item Value Reference Range Comments SODIUM (test code=NA) 142 mmol/L 136-145 POTASSIUM (test code=K) 3.7 mmol/L 3.5-5.1 CHLORIDE (test code=CL) 108.0 mmol/L 98-107 CARBON DIOXIDE (test code=CO2) mmol/L 21-32 ANION GAP (test code=GAP) 10-20 GLUCOSE (test code=GLU) mg/dL 74-106 BLOOD UREA NITROGEN (test code=BUN) mg/dL 7-18 GLOMERULAR FILTRATION RATE (test code=GFR) mL/min >=60 CREATININE (test code=CREAT) mg/dL 0.55-1.02 BUN/CREATININE RATIO (test code=BUN/CREA) 10-20 TOTAL PROTEIN (test code=PROT) gram/dL 6.4-8.2 ALBUMIN (test code=ALB) g/dL 3.4-5.0 GLOBULIN (test code=GLOB) gram/dL 2.7-4.2 ALBUMIN/GLOBULIN RATIO (test code=A/G) 0.75-1.50 CALCIUM (test code=CA) mg/dL 8.5-10.1 BILIRUBIN TOTAL (test code=BILT) mg/dL 0.0-1.0 SGOT/AST (test code=AST) IUnit/L 15-37 SGPT/ALT (test code=ALT) IUnit/L 12-78 ALKALINE PHOSPHATASE TOTAL (test code=ALKP) IUnit/L 45-117 URIC [id number] 05:54:00* Test Item Value Reference Range Comments URIC ACID (test code=URIC) mg/dL 2.6-7.2 PARATHYROID HORMONE [id number] 05:54:00* Test Item Value Reference Range Comments PARATHYROID HORMONE INTACT (test code=PARAI) pgram/mL 8.4-88 LACTIC [id number] 12:17:00* Test Item Value Reference Range Comments LACTIC ACID (test code=LACT) 2.0 mmol/L 0.4-1.9 Results called to [id number] by V.LAB.LDB 11/19/18 1211Critical results verified and read back by Nurse? Y PT REFUSED RN LALA NOTIFIED V.LAB.KP2 11/19/18 0857LACTIC [id number] 08:52:00 * Test Item Value Reference Range Comments LACTIC ACID (test code=LACT) 2.0 mmol/L 0.4-1.9 Results called to [id number] by MADELAINELDB 11/19/18 0851Critical results verified and read back by Nurse? Y URINALYSIS [id number] 06:34:00* Test Item Value Reference Range Comments UA COLOR (test code=COLU) YELLOW YELLOW UA APPEARANCE (test code=APPU) Cloudy CLEAR UA GLUCOSE DIPSTICK (test code=DGLUU) 50 (Trace) mg/dL NEGATIVE UA BILIRUBIN DIPSTICK (test code=BILU) NEGATIVE mg/dL NEGATIVE UA KETONE DIPSTICK (test code=KETU) NEGATIVE mg/dL NEGATIVE UA SPECIFIC GRAVITY (test code=SGU) 1.011 1.001-1.035 UA BLOOD DIPSTICK (test code=JONO) >1.0 mg/dL NEGATIVE UA PH DIPSTICK (test code=AHMET) 6.5 5.0-8.0 UA PROTEIN DIPSTICK (test code=PROU) 200 (2+) mg/dL NEGATIVE UA UROBILINIOGEN DIPSTICK (test code=URO) Normal mg/dL NEGATIVE UA NITRITE DIPSTICK (test code=IFEOMA) NEGATIVE NEGATIVE UA LEUKOCYTE ESTERASE W REFLEX (test code=LEUUR) 500 Franki/uL (2+) Franki/uL NEGATIVE UA WBC (test code=WBCU) >200 per HPF 0-5 UA RBC (test code=RBCU) >200 #/HPF 0-5 UA EPITHELIAL CELLS (test code=EPIU) FEW per HPF FEW UA BACTERIA (test code=BACU) FEW #/HPF NONE UA CALCIUM OXALATE CRYSTALS (test code=CAOXU) MODERATE #/HPF NONE UA MUCUS (test code=MUCU) FEW #/LPF FEW Urine Source? Clean CatchLACTIC [id number] 03:49:00* Test Item Value Reference Range Comments LACTIC ACID (test code=LACT) 2.4 mmol/L 0.4-1.9 Results called to [id number] by MADELAINEAG1 11/19/18 0343Critical results verified and read back by Nurse? Y LACTIC [id number] 00:18:00* Test Item Value Reference Range Comments LACTIC ACID (test code=LACT) 3.2 mmol/L 0.4-1.9 Results called to [id number] by MELISSA.AG1 11/19/18 0017Critical results verified and read back by Nurse? Y CBC W/AUTO [id number] 00:01:00* Test Item Value Reference Range Comments WHITE BLOOD CELL (test code=WBC) 10.8 K/mm3 4.5-12.5 RED BLOOD CELL (test code=RBC) 3.36 mill/mm3 3.7-5.2 HEMOGLOBIN (test code=HGB) 9.3 gram/dL 11.5-15.5 HEMATOCRIT (test code=HCT) 30.2 % 36.0-46.0 MEAN CELL VOLUME (test code=MCV) 89.9 fL 80-98 MEAN CELL HGB (test code=MCH) 27.7 picogram 27.0-33.0 MEAN CELL HGB CONCETRATION (test code=MCHC) 30.8 gram/dL 33.0-36.0 RED CELL DISTRIBUTION WIDTH (test code=RDW) 18.8 % 11.6-16.2 RED CELL DISTRIBUTION WIDTH SD (test code=RDW-SD) 60.7 fL 37.0-51.0 PLATELET COUNT (test code=PLT) 63 K/mm3 150-450 MEAN PLATELET VOLUME (test code=MPV) 12.2 fL 6.7-11.0 NEUTROPHIL % (test code=NT%) 59.7 % 39.0-69.0 IMMATURE GRANULOCYTE % (test code=IG%) 0.7 % 0.0-5.0 LYMPHOCYTE % (test code=LY%) 32.6 % 25.0-55.0 MONOCYTE % (test code=MO%) 5.4 % 0.0-10.0 EOSINOPHIL % (test code=EO%) 1.4 % 0.0-5.0 BASOPHIL % (test code=BA%) 0.2 % 0.0-1.0 NUCLEATED RBC % (test code=NRBC%) 0.0 % 0-0 NEUTROPHIL # (test code=NT#) 6.43 K/mm3 1.8-7.7 IMMATURE GRANULOCYTE # (test code=IG#) 0.08 x10 3/uL 0-0.03 LYMPHOCYTE # (test code=LY#) 3.51 K/mm3 1.0-5.0 MONOCYTE # (test code=MO#) 0.58 K/mm3 0-0.8 EOSINOPHIL # (test code=EO#) 0.15 K/mm3 0.0-0.5 BASOPHIL # (test code=BA#) 0.02 K/mm3 0.0-0.2 NUCLEATED RBC # (test code=NRBC#) 0.00 K/mm3 0.0-0.1 MANUAL DIFF REQUIRED (test code=MDIFF) NO, ONLY SCAN NEEDED DIFFERENTIAL [id number] 00:01:00* Test Item Value Reference Range Comments STAIN ACCEPTABILITY (test code=STN ACCEPTABLE) STAIN ACCEPTABLE ANISOCYTOSIS (test code=ANISO) 2+ MACROCYTOSIS (test code=MACR) 2+ PLATELET ESTIMATE (test code=PLTEST) DECREASED PLATELET MORPHOLOGY (test code=PLTMORPH) SIZE VARIABLE PROCALCITONIN (PCT)2018-11-18 23:56:00* Test Item Value Reference Range Comments PROCALCITONIN (PCT) (test code=PROCAL) 0.54 ng/ml Concentration Interpretation (ng/mL) <0.51 Sepsis is not likely. Local bacterial infection is possible. (LOW RISK for progression to Sepsis) 0.51 - 2.00 Sepsis is possible, but other conditions are known to elevate PCT as well. (MODERATE RISK for progression to Sepsis) > 2.00 Sepsis is likely, unless other causes are known. (HIGH RISK for progression to Severe Sepsis or Septic Shock) 10.00 High likelihood of Severe Sepsis or Septic or higher Shock. *Increased PCT levels may not always be related to systemic bacterial infection.*Low PCT levels do not automatically exclude the presence of bacterial infection.*All results should be interpreted taking into account the patients history. BASIC METABOLIC [id number] 23:36:00* Test Item Value Reference Range Comments SODIUM (test code=NA) 142 mmol/L 136-145 POTASSIUM (test code=K) 3.7 mmol/L 3.5-5.1 CHLORIDE (test code=CL) 105.0 mmol/L 98-107 CARBON DIOXIDE (test code=CO2) 29.0 mmol/L 21-32 ANION GAP (test code=GAP) 11.7 10-20 GLUCOSE (test code=GLU) 116 mg/dL 74-106 BLOOD UREA NITROGEN (test code=BUN) 52 mg/dL 7-18 GLOMERULAR FILTRATION RATE (test code=GFR) 21 mL/min >=60 Estimated GFR by using Modified MDRD formula.Chronic kidney disease is defined as either kidney damageor GFR <60 mL/min/1.73 m2 for >3 months. CREATININE (test code=CREAT) 2.40 mg/dL 0.55-1.02 Note change in reference range due to change in reagent. BUN/CREATININE RATIO (test code=BUN/CREA) 21.7 10-20 CALCIUM (test code=CA) 8.2 mg/dL 8.5-10.1 HEPATIC FUNCTION [id number] 23:36:00* Test Item Value Reference Range Comments TOTAL PROTEIN (test code=PROT) 5.8 gram/dL 6.4-8.2 ALBUMIN (test code=ALB) 1.4 g/dL 3.4-5.0 GLOBULIN (test code=GLOB) 4.4 gram/dL 2.7-4.2 ALBUMIN/GLOBULIN RATIO (test code=A/G) 0.3 0.75-1.50 BILIRUBIN TOTAL (test code=BILT) 2.40 mg/dL 0.0-1.0 BILIRUBIN DIRECT (test code=BILD) 1.95 mg/dL 0.0-0.20 SGOT/AST (test code=AST) 44 IUnit/L 15-37 SGPT/ALT (test code=ALT) 28 IUnit/L 12-78 ALKALINE PHOSPHATASE TOTAL (test code=ALKP) 301 IUnit/L 45-117 Note change in reference range due to change in reagent. [id number] 23:36:00* Test Item Value Reference Range Comments TROPONIN-I (test code=TROPI) <0.015 ng/mL 0-0.045 BASIC METABOLIC [id number] 23:26:00* Test Item Value Reference Range Comments SODIUM (test code=NA) 142 mmol/L 136-145 POTASSIUM (test code=K) 3.7 mmol/L 3.5-5.1 CHLORIDE (test code=CL) 105.0 mmol/L 98-107 CARBON DIOXIDE (test code=CO2) mmol/L 21-32 ANION GAP (test code=GAP) 10-20 GLUCOSE (test code=GLU) mg/dL 74-106 BLOOD UREA NITROGEN (test code=BUN) mg/dL 7-18 GLOMERULAR FILTRATION RATE (test code=GFR) mL/min >=60 CREATININE (test code=CREAT) mg/dL 0.55-1.02 BUN/CREATININE RATIO (test code=BUN/CREA) 10-20 CALCIUM (test code=CA) mg/dL 8.5-10.1 HEPATIC FUNCTION [id number] 23:26:00* Test Item Value Reference Range Comments TOTAL PROTEIN (test code=PROT) gram/dL 6.4-8.2 ALBUMIN (test code=ALB) g/dL 3.4-5.0 GLOBULIN (test code=GLOB) gram/dL 2.7-4.2 ALBUMIN/GLOBULIN RATIO (test code=A/G) 0.75-1.50 BILIRUBIN TOTAL (test code=BILT) mg/dL 0.0-1.0 BILIRUBIN DIRECT (test code=BILD) mg/dL 0.0-0.20 SGOT/AST (test code=AST) IUnit/L 15-37 SGPT/ALT (test code=ALT) IUnit/L 12-78 ALKALINE PHOSPHATASE TOTAL (test code=ALKP) IUnit/L 45-117 [id number] 23:26:00* Test Item Value Reference Range Comments TROPONIN-I (test code=TROPI) ng/mL 0-0.045 POC LACTIC [id number] 23:20:00* Test Item Value Reference Range Comments POC LACTIC ACID (test code=POCLAC) 3.16 MMOL/L 0.4-2.2 CBC W/AUTO [id number] 23:20:00* Test Item Value Reference Range Comments WHITE BLOOD CELL (test code=WBC) 10.8 K/mm3 4.5-12.5 RED BLOOD CELL (test code=RBC) 3.36 mill/mm3 3.7-5.2 HEMOGLOBIN (test code=HGB) 9.3 gram/dL 11.5-15.5 HEMATOCRIT (test code=HCT) 30.2 % 36.0-46.0 MEAN CELL VOLUME (test code=MCV) 89.9 fL 80-98 MEAN CELL HGB (test code=MCH) 27.7 picogram 27.0-33.0 MEAN CELL HGB CONCETRATION (test code=MCHC) 30.8 gram/dL 33.0-36.0 RED CELL DISTRIBUTION WIDTH (test code=RDW) 18.8 % 11.6-16.2 RED CELL DISTRIBUTION WIDTH SD (test code=RDW-SD) 60.7 fL 37.0-51.0 PLATELET COUNT (test code=PLT) 63 K/mm3 150-450 MEAN PLATELET VOLUME (test code=MPV) 12.2 fL 6.7-11.0 NEUTROPHIL % (test code=NT%) 59.7 % 39.0-69.0 IMMATURE GRANULOCYTE % (test code=IG%) 0.7 % 0.0-5.0 LYMPHOCYTE % (test code=LY%) 32.6 % 25.0-55.0 MONOCYTE % (test code=MO%) 5.4 % 0.0-10.0 EOSINOPHIL % (test code=EO%) 1.4 % 0.0-5.0 BASOPHIL % (test code=BA%) 0.2 % 0.0-1.0 NUCLEATED RBC % (test code=NRBC%) 0.0 % 0-0 NEUTROPHIL # (test code=NT#) 6.43 K/mm3 1.8-7.7 IMMATURE GRANULOCYTE # (test code=IG#) 0.08 x10 3/uL 0-0.03 LYMPHOCYTE # (test code=LY#) 3.51 K/mm3 1.0-5.0 MONOCYTE # (test code=MO#) 0.58 K/mm3 0-0.8 EOSINOPHIL # (test code=EO#) 0.15 K/mm3 0.0-0.5 BASOPHIL # (test code=BA#) 0.02 K/mm3 0.0-0.2 NUCLEATED RBC # (test code=NRBC#) 0.00 K/mm3 0.0-0.1 MANUAL DIFF REQUIRED (test code=MDIFF) NO, ONLY SCAN NEEDED DIFFERENTIAL [id number] 23:20:00* Test Item Value Reference Range Comments STAIN ACCEPTABILITY (test code=STN ACCEPTABLE) CABOT RINGS (test code=CAB) MORPHOLOGY COMMENT (test code=MOC) PLATELET ESTIMATE (test code=PLTEST) PLATELET MORPHOLOGY (test code=PLTMORPH) CBC W/AUTO [id number] 23:20:00* Test Item Value Reference Range Comments WHITE BLOOD CELL (test code=WBC) 10.8 K/mm3 4.5-12.5 RED BLOOD CELL (test code=RBC) 3.36 mill/mm3 3.7-5.2 HEMOGLOBIN (test code=HGB) 9.3 gram/dL 11.5-15.5 HEMATOCRIT (test code=HCT) 30.2 % 36.0-46.0 MEAN CELL VOLUME (test code=MCV) 89.9 fL 80-98 MEAN CELL HGB (test code=MCH) 27.7 picogram 27.0-33.0 MEAN CELL HGB CONCETRATION (test code=MCHC) 30.8 gram/dL 33.0-36.0 RED CELL DISTRIBUTION WIDTH (test code=RDW) 18.8 % 11.6-16.2 RED CELL DISTRIBUTION WIDTH SD (test code=RDW-SD) 60.7 fL 37.0-51.0 PLATELET COUNT (test code=PLT) 63 K/mm3 150-450 MEAN PLATELET VOLUME (test code=MPV) 12.2 fL 6.7-11.0 NEUTROPHIL % (test code=NT%) 59.7 % 39.0-69.0 IMMATURE GRANULOCYTE % (test code=IG%) 0.7 % 0.0-5.0 LYMPHOCYTE % (test code=LY%) 32.6 % 25.0-55.0 MONOCYTE % (test code=MO%) 5.4 % 0.0-10.0 EOSINOPHIL % (test code=EO%) 1.4 % 0.0-5.0 BASOPHIL % (test code=BA%) 0.2 % 0.0-1.0 NUCLEATED RBC % (test code=NRBC%) 0.0 % 0-0 NEUTROPHIL # (test code=NT#) 6.43 K/mm3 1.8-7.7 IMMATURE GRANULOCYTE # (test code=IG#) 0.08 x10 3/uL 0-0.03 LYMPHOCYTE # (test code=LY#) 3.51 K/mm3 1.0-5.0 MONOCYTE # (test code=MO#) 0.58 K/mm3 0-0.8 EOSINOPHIL # (test code=EO#) 0.15 K/mm3 0.0-0.5 BASOPHIL # (test code=BA#) 0.02 K/mm3 0.0-0.2 NUCLEATED RBC # (test code=NRBC#) 0.00 K/mm3 0.0-0.1 MANUAL DIFF REQUIRED (test code=MDIFF) NO, ONLY SCAN NEEDED DIFFERENTIAL [id number] 23:20:00* Test Item Value Reference Range Comments STAIN ACCEPTABILITY (test code=STN ACCEPTABLE) CABOT RINGS (test code=CAB) MORPHOLOGY COMMENT (test code=MOC) PLATELET ESTIMATE (test code=PLTEST) PLATELET MORPHOLOGY (test code=PLTMORPH) CBC W/AUTO [id number] 23:20:00* Test Item Value Reference Range Comments WHITE BLOOD CELL (test code=WBC) 10.8 K/mm3 4.5-12.5 RED BLOOD CELL (test code=RBC) 3.36 mill/mm3 3.7-5.2 HEMOGLOBIN (test code=HGB) 9.3 gram/dL 11.5-15.5 HEMATOCRIT (test code=HCT) 30.2 % 36.0-46.0 MEAN CELL VOLUME (test code=MCV) 89.9 fL 80-98 MEAN CELL HGB (test code=MCH) 27.7 picogram 27.0-33.0 MEAN CELL HGB CONCETRATION (test code=MCHC) 30.8 gram/dL 33.0-36.0 RED CELL DISTRIBUTION WIDTH (test code=RDW) 18.8 % 11.6-16.2 RED CELL DISTRIBUTION WIDTH SD (test code=RDW-SD) 60.7 fL 37.0-51.0 PLATELET COUNT (test code=PLT) 63 K/mm3 150-450 MEAN PLATELET VOLUME (test code=MPV) 12.2 fL 6.7-11.0 NEUTROPHIL % (test code=NT%) 59.7 % 39.0-69.0 IMMATURE GRANULOCYTE % (test code=IG%) 0.7 % 0.0-5.0 LYMPHOCYTE % (test code=LY%) 32.6 % 25.0-55.0 MONOCYTE % (test code=MO%) 5.4 % 0.0-10.0 EOSINOPHIL % (test code=EO%) 1.4 % 0.0-5.0 BASOPHIL % (test code=BA%) 0.2 % 0.0-1.0 NUCLEATED RBC % (test code=NRBC%) 0.0 % 0-0 NEUTROPHIL # (test code=NT#) 6.43 K/mm3 1.8-7.7 IMMATURE GRANULOCYTE # (test code=IG#) 0.08 x10 3/uL 0-0.03 LYMPHOCYTE # (test code=LY#) 3.51 K/mm3 1.0-5.0 MONOCYTE # (test code=MO#) 0.58 K/mm3 0-0.8 EOSINOPHIL # (test code=EO#) 0.15 K/mm3 0.0-0.5 BASOPHIL # (test code=BA#) 0.02 K/mm3 0.0-0.2 NUCLEATED RBC # (test code=NRBC#) 0.00 K/mm3 0.0-0.1 MANUAL DIFF REQUIRED (test code=MDIFF) NO, ONLY SCAN NEEDED DIFFERENTIAL [id number] 23:20:00* Test Item Value Reference Range Comments STAIN ACCEPTABILITY (test code=STN ACCEPTABLE) MORPHOLOGY COMMENT (test code=MOC) PLATELET ESTIMATE (test code=PLTEST) PLATELET MORPHOLOGY (test code=PLTMORPH) CBC W/AUTO [id number] 23:20:00* Test Item Value Reference Range Comments WHITE BLOOD CELL (test code=WBC) 10.8 K/mm3 4.5-12.5 RED BLOOD CELL (test code=RBC) 3.36 mill/mm3 3.7-5.2 HEMOGLOBIN (test code=HGB) 9.3 gram/dL 11.5-15.5 HEMATOCRIT (test code=HCT) 30.2 % 36.0-46.0 MEAN CELL VOLUME (test code=MCV) 89.9 fL 80-98 MEAN CELL HGB (test code=MCH) 27.7 picogram 27.0-33.0 MEAN CELL HGB CONCETRATION (test code=MCHC) 30.8 gram/dL 33.0-36.0 RED CELL DISTRIBUTION WIDTH (test code=RDW) 18.8 % 11.6-16.2 RED CELL DISTRIBUTION WIDTH SD (test code=RDW-SD) 60.7 fL 37.0-51.0 PLATELET COUNT (test code=PLT) 63 K/mm3 150-450 MEAN PLATELET VOLUME (test code=MPV) 12.2 fL 6.7-11.0 NEUTROPHIL % (test code=NT%) 59.7 % 39.0-69.0 IMMATURE GRANULOCYTE % (test code=IG%) 0.7 % 0.0-5.0 LYMPHOCYTE % (test code=LY%) 32.6 % 25.0-55.0 MONOCYTE % (test code=MO%) 5.4 % 0.0-10.0 EOSINOPHIL % (test code=EO%) 1.4 % 0.0-5.0 BASOPHIL % (test code=BA%) 0.2 % 0.0-1.0 NUCLEATED RBC % (test code=NRBC%) 0.0 % 0-0 NEUTROPHIL # (test code=NT#) 6.43 K/mm3 1.8-7.7 IMMATURE GRANULOCYTE # (test code=IG#) 0.08 x10 3/uL 0-0.03 LYMPHOCYTE # (test code=LY#) 3.51 K/mm3 1.0-5.0 MONOCYTE # (test code=MO#) 0.58 K/mm3 0-0.8 EOSINOPHIL # (test code=EO#) 0.15 K/mm3 0.0-0.5 BASOPHIL # (test code=BA#) 0.02 K/mm3 0.0-0.2 NUCLEATED RBC # (test code=NRBC#) 0.00 K/mm3 0.0-0.1 MANUAL DIFF REQUIRED (test code=MDIFF) NO, ONLY SCAN NEEDED DIFFERENTIAL [id number] 23:20:00* Test Item Value Reference Range Comments STAIN ACCEPTABILITY (test code=STN ACCEPTABLE) CABOT RINGS (test code=CAB) MORPHOLOGY COMMENT (test code=MOC) PLATELET ESTIMATE (test code=PLTEST) PLATELET MORPHOLOGY (test code=PLTMORPH) - XR CHEST 1 [id number] 22:38:00 FAX: Jessica Kumar MD [phone] [place]: B St: REG Name: SIOBHAN ROBERTS [facility] : [birth year] Age/S: 53/F Jana Whiting Unit #: [id number] Loc: [place] [address] Phys: Jessica Kumar MD Acct: [id number] Dis Date: Status: REG ER PHONE #: [phone] Exam Date: 11/18/20182227 FAX #: [phone] Reason: CODE SEPSIS EXAMS: CPT CODE: [id number] XR CHEST 1 V 27048 REASON FOR EXAM: CODE SEPSIS EXAM ORDER DATE: 11/18/2018 9:33 PM Ordering M.Evon.: Jessica Kumar MD PROCEDURE: - XR CHEST 1 V COM PARISON: FINDINGS: Portable AP frontal view of the chest obtained at 10:28 PM shows clear lungs without evidence of consolidation. There is no evidence of effusion. The heart size is minimally enlarged. Pulmonary vasculatures are minimally congested. IMPRESSION: Minimal cardiomegaly and pulmonary venous congestion at 2238 Reported and araceli d by: Jewel Reyez M.D. CC: Jessica Kumar MD Technologist: RT KIANA(R); Katja Bhat(R) Trnscrd Date/Time/By: 11/18/2018 (2) : By: Mark Orig Print D/T: S: 11/18/2018 (1794) PAGE 1 Signed Report CBC W/AUTO [id number] 15:44:00* Test Item Value Reference Range Comments WHITE BLOOD CELL (test code=WBC) 12.8 K/mm3 4.5-12.5 RED BLOOD CELL (test code=RBC) 3.16 mill/mm3 3.7-5.2 HEMOGLOBIN (test code=HGB) 9.0 gram/dL 11.5-15.5 HEMATOCRIT (test code=HCT) 28.4 % 36.0-46.0 MEAN CELL VOLUME (test code=MCV) 89.9 fL 80-98 MEAN CELL HGB (test code=MCH) 28.5 picogram 27.0-33.0 MEAN CELL HGB CONCETRATION (test code=MCHC) 31.7 gram/dL 33.0-36.0 RED CELL DISTRIBUTION WIDTH (test code=RDW) 19.0 % 11.6-16.2 RED CELL DISTRIBUTION WIDTH SD (test code=RDW-SD) 62.2 fL 37.0-51.0 PLATELET COUNT (test code=PLT) 68 K/mm3 150-450 MEAN PLATELET VOLUME (test code=MPV) 12.5 fL 6.7-11.0 NEUTROPHIL % (test code=NT%) 63.6 % 39.0-69.0 IMMATURE GRANULOCYTE % (test code=IG%) 0.8 % 0.0-5.0 LYMPHOCYTE % (test code=LY%) 29.9 % 25.0-55.0 MONOCYTE % (test code=MO%) 5.3 % 0.0-10.0 EOSINOPHIL % (test code=EO%) 0.2 % 0.0-5.0 BASOPHIL % (test code=BA%) 0.2 % 0.0-1.0 NUCLEATED RBC % (test code=NRBC%) 0.0 % 0-0 NEUTROPHIL # (test code=NT#) 8.12 K/mm3 1.8-7.7 IMMATURE GRANULOCYTE # (test code=IG#) 0.10 x10 3/uL 0-0.03 LYMPHOCYTE # (test code=LY#) 3.82 K/mm3 1.0-5.0 MONOCYTE # (test code=MO#) 0.67 K/mm3 0-0.8 EOSINOPHIL # (test code=EO#) 0.02 K/mm3 0.0-0.5 BASOPHIL # (test code=BA#) 0.03 K/mm3 0.0-0.2 NUCLEATED RBC # (test code=NRBC#) 0.00 K/mm3 0.0-0.1 MANUAL DIFF REQUIRED (test code=MDIFF) NO, ONLY SCAN NEEDED DIFFERENTIAL [id number] 15:44:00* Test Item Value Reference Range Comments STAIN ACCEPTABILITY (test code=STN ACCEPTABLE) STAIN ACCEPTABLE TARGET CELLS (test code=TGT) 1+ PLATELET ESTIMATE (test code=PLTEST) DECREASED PLATELET MORPHOLOGY (test code=PLTMORPH) SIZE VARIABLE [id number] 14:27:00 RUN DATE: 11/18/18 [place] - Lab PAGE 1 RUN TIME: 1427 Specimen Inqui ry RUN USER: INTERFACE PATIENT: SIOBHAN BARBOSA ACCT #: [id number] LOC: [facility] U #: [id number] AGE/SX: 53/F ROOM: 2072 RE10/24/18REG DR: Gray Knott MD : 63 BED: A DIS: STATUS: ADM IN TLOC: SPEC #: [id number] RECD: 11/17/18 STATUS: JAC RECelena #: [id number] RADHA: 11/17/18- SUBM DR: Delbert Luna ENTERED: 11/17/18 SP TYPE: CALCULI OTHR DR: Darmad iJay MD, David MD Goldsmith, William W DO Gopalakrishnan, Thandavarajan M Guthikonda, Lalitha N MD Hamer,Kim Drake,Fabiana Bridges,Dawit Corrales,Fanny Black,Vilma Stoner,Armando HassanORDERED: GROSS COPIES TO: Jay Hughes MD [address] [place] [address] Tomy Mckeon MD [address] [place] [address] Stan Acosta DO [address] [place] [address] Ivan Barros [address] [place] [address] [place] [address] [facility], [address] [place] [address] Kim Dill MD [address] [facility] [address] [place] [address] CONTINUED ON NEXT PAGE RUN DATE: 11/18/18 [facility] - [facility] PAGE 2 RUN TIME: 1427 Specimen Inquiry RUN USER: INTERFACE SPEC #: [id number] PATIENT: SIOBHAN BARBOSA #[id number] (Continued) COPIES TO: (Continued) Kaila Luna MD [address] [place] [address] Fabiana Drake MD [address] [facility] [address] [place] [address] Yonis Bridges MD [address] [facility] [address] [place], [place] [id number] Fanny Fernandes MD [address] [facility] [address] [place] [address] Vilma Black MD [address] [place] [address] Armando Stoner [address] [place], [place] [phone] PROCEDURES: GROSS (11/18/18-1028) TISSUES: URINARY BLADDER, N OS - STONES CLINICAL HISTORY COLLECTION DATE: 11/17/18 NEPHROLITH IASIS, ASCITES FINAL DIAGNOSIS Urinary bladder stones, removal: CALCULOUS MATERIAL (GROSS IDENTIFICATION) SUBMITTED FOR CHEMICAL ANALYS IS CONTINUED ON NEXT PAGE R UN DATE: 11/18/18 [facility] - [facility] PAGE 3 RUN TIME: 1427 Specimen Inquiry RUN USER: INTERFACE SPEC #: [id number] PATIENT: SIOBHAN BARBOSA #[id number] (Continued) FINAL DIAGNOSIS (C ontinued) RRB/ D [address]90 MACROSCOPIC The specimen is received without fixative in a container labeled with the patient's name, and identified as "bladder stones". It consists of fragments of dark brown calcu lous material measuring 0.6 X 0.5 X 0.3 cm in aggregate. The specimen is submi tted for chemical analysis. GROSS PERFORMED AT [facility] [address] [place] [phone] Signed SIGNATURE ON FILE Lev Davenport MD 11/18/18 1427 END OF REPORT CBC W/AUTO [id number] 11:28:00* Test Item Value Reference Range Comments WHITE BLOOD CELL (test code=WBC) 12.8 K/mm3 4.5-12.5 RED BLOOD CELL (test code=RBC) 3.16 mill/mm3 3.7-5.2 HEMOGLOBIN (test code=HGB) 9.0 gram/dL 11.5-15.5 HEMATOCRIT (test code=HCT) 28.4 % 36.0-46.0 MEAN CELL VOLUME (test code=MCV) 89.9 fL 80-98 MEAN CELL HGB (test code=MCH) 28.5 picogram 27.0-33.0 MEAN CELL HGB CONCETRATION (test code=MCHC) 31.7 gram/dL 33.0-36.0 RED CELL DISTRIBUTION WIDTH (test code=RDW) 19.0 % 11.6-16.2 RED CELL DISTRIBUTION WIDTH SD (test code=RDW-SD) 62.2 fL 37.0-51.0 PLATELET COUNT (test code=PLT) 68 K/mm3 150-450 MEAN PLATELET VOLUME (test code=MPV) 12.5 fL 6.7-11.0 NEUTROPHIL % (test code=NT%) 63.6 % 39.0-69.0 IMMATURE GRANULOCYTE % (test code=IG%) 0.8 % 0.0-5.0 LYMPHOCYTE % (test code=LY%) 29.9 % 25.0-55.0 MONOCYTE % (test code=MO%) 5.3 % 0.0-10.0 EOSINOPHIL % (test code=EO%) 0.2 % 0.0-5.0 BASOPHIL % (test code=BA%) 0.2 % 0.0-1.0 NUCLEATED RBC % (test code=NRBC%) 0.0 % 0-0 NEUTROPHIL # (test code=NT#) 8.12 K/mm3 1.8-7.7 IMMATURE GRANULOCYTE # (test code=IG#) 0.10 x10 3/uL 0-0.03 LYMPHOCYTE # (test code=LY#) 3.82 K/mm3 1.0-5.0 MONOCYTE # (test code=MO#) 0.67 K/mm3 0-0.8 EOSINOPHIL # (test code=EO#) 0.02 K/mm3 0.0-0.5 BASOPHIL # (test code=BA#) 0.03 K/mm3 0.0-0.2 NUCLEATED RBC # (test code=NRBC#) 0.00 K/mm3 0.0-0.1 MANUAL DIFF REQUIRED (test code=MDIFF) NO, ONLY SCAN NEEDED DIFFERENTIAL [id number] 11:28:00* Test Item Value Reference Range Comments STAIN ACCEPTABILITY (test code=STN ACCEPTABLE) CABOT RINGS (test code=CAB) MORPHOLOGY COMMENT (test code=MOC) PLATELET ESTIMATE (test code=PLTEST) PLATELET MORPHOLOGY (test code=PLTMORPH) CBC W/AUTO [id number] 11:28:00* Test Item Value Reference Range Comments WHITE BLOOD CELL (test code=WBC) 12.8 K/mm3 4.5-12.5 RED BLOOD CELL (test code=RBC) 3.16 mill/mm3 3.7-5.2 HEMOGLOBIN (test code=HGB) 9.0 gram/dL 11.5-15.5 HEMATOCRIT (test code=HCT) 28.4 % 36.0-46.0 MEAN CELL VOLUME (test code=MCV) 89.9 fL 80-98 MEAN CELL HGB (test code=MCH) 28.5 picogram 27.0-33.0 MEAN CELL HGB CONCETRATION (test code=MCHC) 31.7 gram/dL 33.0-36.0 RED CELL DISTRIBUTION WIDTH (test code=RDW) 19.0 % 11.6-16.2 RED CELL DISTRIBUTION WIDTH SD (test code=RDW-SD) 62.2 fL 37.0-51.0 PLATELET COUNT (test code=PLT) 68 K/mm3 150-450 MEAN PLATELET VOLUME (test code=MPV) 12.5 fL 6.7-11.0 NEUTROPHIL % (test code=NT%) 63.6 % 39.0-69.0 IMMATURE GRANULOCYTE % (test code=IG%) 0.8 % 0.0-5.0 LYMPHOCYTE % (test code=LY%) 29.9 % 25.0-55.0 MONOCYTE % (test code=MO%) 5.3 % 0.0-10.0 EOSINOPHIL % (test code=EO%) 0.2 % 0.0-5.0 BASOPHIL % (test code=BA%) 0.2 % 0.0-1.0 NUCLEATED RBC % (test code=NRBC%) 0.0 % 0-0 NEUTROPHIL # (test code=NT#) 8.12 K/mm3 1.8-7.7 IMMATURE GRANULOCYTE # (test code=IG#) 0.10 x10 3/uL 0-0.03 LYMPHOCYTE # (test code=LY#) 3.82 K/mm3 1.0-5.0 MONOCYTE # (test code=MO#) 0.67 K/mm3 0-0.8 EOSINOPHIL # (test code=EO#) 0.02 K/mm3 0.0-0.5 BASOPHIL # (test code=BA#) 0.03 K/mm3 0.0-0.2 NUCLEATED RBC # (test code=NRBC#) 0.00 K/mm3 0.0-0.1 MANUAL DIFF REQUIRED (test code=MDIFF) NO, ONLY SCAN NEEDED DIFFERENTIAL [id number] 11:28:00* Test Item Value Reference Range Comments STAIN ACCEPTABILITY (test code=STN ACCEPTABLE) CABOT RINGS (test code=CAB) MORPHOLOGY COMMENT (test code=MOC) PLATELET ESTIMATE (test code=PLTEST) PLATELET MORPHOLOGY (test code=PLTMORPH) CBC W/AUTO [id number] 11:28:00* Test Item Value Reference Range Comments WHITE BLOOD CELL (test code=WBC) 12.8 K/mm3 4.5-12.5 RED BLOOD CELL (test code=RBC) 3.16 mill/mm3 3.7-5.2 HEMOGLOBIN (test code=HGB) 9.0 gram/dL 11.5-15.5 HEMATOCRIT (test code=HCT) 28.4 % 36.0-46.0 MEAN CELL VOLUME (test code=MCV) 89.9 fL 80-98 MEAN CELL HGB (test code=MCH) 28.5 picogram 27.0-33.0 MEAN CELL HGB CONCETRATION (test code=MCHC) 31.7 gram/dL 33.0-36.0 RED CELL DISTRIBUTION WIDTH (test code=RDW) 19.0 % 11.6-16.2 RED CELL DISTRIBUTION WIDTH SD (test code=RDW-SD) 62.2 fL 37.0-51.0 PLATELET COUNT (test code=PLT) 68 K/mm3 150-450 MEAN PLATELET VOLUME (test code=MPV) 12.5 fL 6.7-11.0 NEUTROPHIL % (test code=NT%) 63.6 % 39.0-69.0 IMMATURE GRANULOCYTE % (test code=IG%) 0.8 % 0.0-5.0 LYMPHOCYTE % (test code=LY%) 29.9 % 25.0-55.0 MONOCYTE % (test code=MO%) 5.3 % 0.0-10.0 EOSINOPHIL % (test code=EO%) 0.2 % 0.0-5.0 BASOPHIL % (test code=BA%) 0.2 % 0.0-1.0 NUCLEATED RBC % (test code=NRBC%) 0.0 % 0-0 NEUTROPHIL # (test code=NT#) 8.12 K/mm3 1.8-7.7 IMMATURE GRANULOCYTE # (test code=IG#) 0.10 x10 3/uL 0-0.03 LYMPHOCYTE # (test code=LY#) 3.82 K/mm3 1.0-5.0 MONOCYTE # (test code=MO#) 0.67 K/mm3 0-0.8 EOSINOPHIL # (test code=EO#) 0.02 K/mm3 0.0-0.5 BASOPHIL # (test code=BA#) 0.03 K/mm3 0.0-0.2 NUCLEATED RBC # (test code=NRBC#) 0.00 K/mm3 0.0-0.1 MANUAL DIFF REQUIRED (test code=MDIFF) NO, ONLY SCAN NEEDED DIFFERENTIAL [id number] 11:28:00* Test Item Value Reference Range Comments STAIN ACCEPTABILITY (test code=STN ACCEPTABLE) MORPHOLOGY COMMENT (test code=MOC) PLATELET ESTIMATE (test code=PLTEST) PLATELET MORPHOLOGY (test code=PLTMORPH) CBC W/AUTO [id number] 11:28:00* Test Item Value Reference Range Comments WHITE BLOOD CELL (test code=WBC) 12.8 K/mm3 4.5-12.5 RED BLOOD CELL (test code=RBC) 3.16 mill/mm3 3.7-5.2 HEMOGLOBIN (test code=HGB) 9.0 gram/dL 11.5-15.5 HEMATOCRIT (test code=HCT) 28.4 % 36.0-46.0 MEAN CELL VOLUME (test code=MCV) 89.9 fL 80-98 MEAN CELL HGB (test code=MCH) 28.5 picogram 27.0-33.0 MEAN CELL HGB CONCETRATION (test code=MCHC) 31.7 gram/dL 33.0-36.0 RED CELL DISTRIBUTION WIDTH (test code=RDW) 19.0 % 11.6-16.2 RED CELL DISTRIBUTION WIDTH SD (test code=RDW-SD) 62.2 fL 37.0-51.0 PLATELET COUNT (test code=PLT) 68 K/mm3 150-450 MEAN PLATELET VOLUME (test code=MPV) 12.5 fL 6.7-11.0 NEUTROPHIL % (test code=NT%) 63.6 % 39.0-69.0 IMMATURE GRANULOCYTE % (test code=IG%) 0.8 % 0.0-5.0 LYMPHOCYTE % (test code=LY%) 29.9 % 25.0-55.0 MONOCYTE % (test code=MO%) 5.3 % 0.0-10.0 EOSINOPHIL % (test code=EO%) 0.2 % 0.0-5.0 BASOPHIL % (test code=BA%) 0.2 % 0.0-1.0 NUCLEATED RBC % (test code=NRBC%) 0.0 % 0-0 NEUTROPHIL # (test code=NT#) 8.12 K/mm3 1.8-7.7 IMMATURE GRANULOCYTE # (test code=IG#) 0.10 x10 3/uL 0-0.03 LYMPHOCYTE # (test code=LY#) 3.82 K/mm3 1.0-5.0 MONOCYTE # (test code=MO#) 0.67 K/mm3 0-0.8 EOSINOPHIL # (test code=EO#) 0.02 K/mm3 0.0-0.5 BASOPHIL # (test code=BA#) 0.03 K/mm3 0.0-0.2 NUCLEATED RBC # (test code=NRBC#) 0.00 K/mm3 0.0-0.1 MANUAL DIFF REQUIRED (test code=MDIFF) NO, ONLY SCAN NEEDED DIFFERENTIAL [id number] 11:28:00* Test Item Value Reference Range Comments STAIN ACCEPTABILITY (test code=STN ACCEPTABLE) CABOT RINGS (test code=CAB) MORPHOLOGY COMMENT (test code=MOC) PLATELET ESTIMATE (test code=PLTEST) PLATELET MORPHOLOGY (test code=PLTMORPH) BASIC METABOLIC [id number] 09:02:00* Test Item Value Reference Range Comments SODIUM (test code=NA) 144 mmol/L 136-145 POTASSIUM (test code=K) 4.7 mmol/L 3.5-5.1 CHLORIDE (test code=CL) 109.0 mmol/L 98-107 CARBON DIOXIDE (test code=CO2) 26.0 mmol/L 21-32 ANION GAP (test code=GAP) 13.7 10-20 GLUCOSE (test code=GLU) 139 mg/dL 74-106 BLOOD UREA NITROGEN (test code=BUN) 55 mg/dL 7-18 GLOMERULAR FILTRATION RATE (test code=GFR) 21 mL/min >=60 Estimated GFR by using Modified MDRD formula.Chronic kidney disease is defined as either kidney damageor GFR <60 mL/min/1.73 m2 for >3 months. CREATININE (test code=CREAT) 2.40 mg/dL 0.55-1.02 Note change in reference range due to change in reagent. BUN/CREATININE RATIO (test code=BUN/CREA) 22.9 10-20 CALCIUM (test code=CA) 8.5 mg/dL 8.5-10.1 BASIC METABOLIC [id number] 08:49:00* Test Item Value Reference Range Comments SODIUM (test code=NA) 144 mmol/L 136-145 POTASSIUM (test code=K) 4.7 mmol/L 3.5-5.1 CHLORIDE (test code=CL) 109.0 mmol/L 98-107 CARBON DIOXIDE (test code=CO2) mmol/L 21-32 ANION GAP (test code=GAP) 10-20 GLUCOSE (test code=GLU) mg/dL 74-106 BLOOD UREA NITROGEN (test code=BUN) mg/dL 7-18 GLOMERULAR FILTRATION RATE (test code=GFR) mL/min >=60 CREATININE (test code=CREAT) mg/dL 0.55-1.02 BUN/CREATININE RATIO (test code=BUN/CREA) 10-20 CALCIUM (test code=CA) mg/dL 8.5-10.1 CBC W/MANUAL [id number] 15:45:00* Test Item Value Reference Range Comments WHITE BLOOD CELL (test code=WBC) 8.2 K/mm3 4.5-12.5 RED BLOOD CELL (test code=RBC) 3.12 mill/mm3 3.7-5.2 HEMOGLOBIN (test code=HGB) 8.6 gram/dL 11.5-15.5 HEMATOCRIT (test code=HCT) 28.7 % 36.0-46.0 MEAN CELL VOLUME (test code=MCV) 92.0 fL 80-98 MEAN CELL HGB (test code=MCH) 27.6 picogram 27.0-33.0 MEAN CELL HGB CONCETRATION (test code=MCHC) 30.0 gram/dL 33.0-36.0 RED CELL DISTRIBUTION WIDTH (test code=RDW) 19.5 % 11.6-16.2 RED CELL DISTRIBUTION WIDTH SD (test code=RDW-SD) 64.6 fL 37.0-51.0 PLATELET COUNT (test code=PLT) 71 K/mm3 150-450 RESULT VERIFIED BY REPEAT ANALYSIS MEAN PLATELET VOLUME (test code=MPV) 11.4 fL 6.7-11.0 IMMATURE GRANULOCYTE % (test code=IG%) 0.9 % 0.0-5.0 NUCLEATED RBC % (test code=NRBC%) 0.0 % 0-0 NEUTROPHIL # (test code=NT#) 3.26 K/mm3 1.8-7.7 IMMATURE GRANULOCYTE # (test code=IG#) 0.07 x10 3/uL 0-0.03 LYMPHOCYTE # (test code=LY#) 3.89 K/mm3 1.0-5.0 MONOCYTE # (test code=MO#) 0.59 K/mm3 0-0.8 EOSINOPHIL # (test code=EO#) 0.33 K/mm3 0.0-0.5 BASOPHIL # (test code=BA#) 0.06 K/mm3 0.0-0.2 NUCLEATED RBC # (test code=NRBC#) 0.00 K/mm3 0.0-0.1 MANUAL DIFF REQUIRED (test code=MDIFF) YES STAIN ACCEPTABILITY (test code=STN ACCEPTABLE) STAIN ACCEPTABLE TOTAL CELLS COUNTED (test code=TCC) 100 #CELLS SEGMENTED NEUTROPHILS (test code=SEG) 38 % 39-69 BAND NEUTROPHIL (test code=BAND) 13 % 0-10 LYMPHOCYTE (test code=LYMPH) 32 % 25-55 REACTIVE LYMPH (test code=RELYMPH) 2 % MONOCYTE (test code=MON) 14 % 0-10 EOSINOPHIL (test code=EOS) 1 % 0.0-5.0 HYPOCHROMIA (test code=HYPO) 1+ ROULEAUX (test code=ROU) MODERATE PLATELET ESTIMATE (test code=PLTEST) ADEQUATE PLATELET MORPHOLOGY (test code=PLTMORPH) NORMAL PATIENT WANTS PHLEB TO COME BACK AFTER BREAKFAST V.LAB[id number] 11:03:00* Test Item Value Reference Range Comments SODIUM (test code=NA) 145 mmol/L 136-145 POTASSIUM (test code=K) 3.0 mmol/L 3.5-5.1 CHLORIDE (test code=CL) 108.0 mmol/L 98-107 CARBON DIOXIDE (test code=CO2) 28.0 mmol/L 21-32 ANION GAP (test code=GAP) 12.0 10-20 GLUCOSE (test code=GLU) 75 mg/dL 74-106 BLOOD UREA NITROGEN (test code=BUN) 57 mg/dL 7-18 GLOMERULAR FILTRATION RATE (test code=GFR) 22 mL/min >=60 Estimated GFR by using Modified MDRD formula.Chronic kidney disease is defined as either kidney damageor GFR <60 mL/min/1.73 m2 for >3 months. CREATININE (test code=CREAT) 2.30 mg/dL 0.55-1.02 Note change in reference range due to change in reagent. BUN/CREATININE RATIO (test code=BUN/CREA) 24.8 10-20 CALCIUM (test code=CA) 8.3 mg/dL 8.5-10.1 PATIENT WANTS PHLEB TO COME BACK AFTER BREAKFAST V.LAB.11/17/18 0627[facility] [id number] 10:58:00* Test Item Value Reference Range Comments SODIUM (test code=NA) 145 mmol/L 136-145 POTASSIUM (test code=K) 3.0 mmol/L 3.5-5.1 CHLORIDE (test code=CL) 108.0 mmol/L 98-107 CARBON DIOXIDE (test code=CO2) mmol/L 21-32 ANION GAP (test code=GAP) 10-20 GLUCOSE (test code=GLU) mg/dL 74-106 BLOOD UREA NITROGEN (test code=BUN) mg/dL 7-18 GLOMERULAR FILTRATION RATE (test code=GFR) mL/min >=60 CREATININE (test code=CREAT) mg/dL 0.55-1.02 BUN/CREATININE RATIO (test code=BUN/CREA) 10-20 CALCIUM (test code=CA) 8.3 mg/dL 8.5-10.1 PATIENT WANTS PHLEB TO COME BACK AFTER BREAKFAST V.LAB.AR11/17/18 0627CB W/MANUAL [id number] 10:56:00* Test Item Value Reference Range Comments WHITE BLOOD CELL (test code=WBC) 8.2 K/mm3 4.5-12.5 RED BLOOD CELL (test code=RBC) 3.12 mill/mm3 3.7-5.2 HEMOGLOBIN (test code=HGB) 8.6 gram/dL 11.5-15.5 HEMATOCRIT (test code=HCT) 28.7 % 36.0-46.0 MEAN CELL VOLUME (test code=MCV) 92.0 fL 80-98 MEAN CELL HGB (test code=MCH) 27.6 picogram 27.0-33.0 MEAN CELL HGB CONCETRATION (test code=MCHC) 30.0 gram/dL 33.0-36.0 RED CELL DISTRIBUTION WIDTH (test code=RDW) 19.5 % 11.6-16.2 RED CELL DISTRIBUTION WIDTH SD (test code=RDW-SD) 64.6 fL 37.0-51.0 PLATELET COUNT (test code=PLT) 71 K/mm3 150-450 RESULT VERIFIED BY REPEAT ANALYSIS MEAN PLATELET VOLUME (test code=MPV) 11.4 fL 6.7-11.0 IMMATURE GRANULOCYTE % (test code=IG%) 0.9 % 0.0-5.0 NUCLEATED RBC % (test code=NRBC%) 0.0 % 0-0 NEUTROPHIL # (test code=NT#) 3.26 K/mm3 1.8-7.7 IMMATURE GRANULOCYTE # (test code=IG#) 0.07 x10 3/uL 0-0.03 LYMPHOCYTE # (test code=LY#) 3.89 K/mm3 1.0-5.0 MONOCYTE # (test code=MO#) 0.59 K/mm3 0-0.8 EOSINOPHIL # (test code=EO#) 0.33 K/mm3 0.0-0.5 BASOPHIL # (test code=BA#) 0.06 K/mm3 0.0-0.2 NUCLEATED RBC # (test code=NRBC#) 0.00 K/mm3 0.0-0.1 MANUAL DIFF REQUIRED (test code=MDIFF) YES STAIN ACCEPTABILITY (test code=STN ACCEPTABLE) TOTAL CELLS COUNTED (test code=TCC) #CELLS SEGMENTED NEUTROPHILS (test code=SEG) % 39-69 LYMPHOCYTE (test code=LYMPH) % 25-55 MONOCYTE (test code=MON) % 0-10 MORPHOLOGY COMMENT (test code=MOC) PLATELET ESTIMATE (test code=PLTEST) PLATELET MORPHOLOGY (test code=PLTMORPH) PATIENT WANTS PHLEB TO COME BACK AFTER BREAKFAST V.LAB.11/17/18 0628CBC W/MANUAL [id number] 10:53:00* Test Item Value Reference Range Comments WHITE BLOOD CELL (test code=WBC) 8.2 K/mm3 4.5-12.5 RED BLOOD CELL (test code=RBC) 3.12 mill/mm3 3.7-5.2 HEMOGLOBIN (test code=HGB) 8.6 gram/dL 11.5-15.5 HEMATOCRIT (test code=HCT) 28.7 % 36.0-46.0 MEAN CELL VOLUME (test code=MCV) 92.0 fL 80-98 MEAN CELL HGB (test code=MCH) 27.6 picogram 27.0-33.0 MEAN CELL HGB CONCETRATION (test code=MCHC) 30.0 gram/dL 33.0-36.0 RED CELL DISTRIBUTION WIDTH (test code=RDW) 19.5 % 11.6-16.2 RED CELL DISTRIBUTION WIDTH SD (test code=RDW-SD) 64.6 fL 37.0-51.0 PLATELET COUNT (test code=PLT) 71 K/mm3 150-450 RESULT VERIFIED BY REPEAT ANALYSIS MEAN PLATELET VOLUME (test code=MPV) 11.4 fL 6.7-11.0 IMMATURE GRANULOCYTE % (test code=IG%) 0.9 % 0.0-5.0 NUCLEATED RBC % (test code=NRBC%) 0.0 % 0-0 NEUTROPHIL # (test code=NT#) 3.26 K/mm3 1.8-7.7 IMMATURE GRANULOCYTE # (test code=IG#) 0.07 x10 3/uL 0-0.03 LYMPHOCYTE # (test code=LY#) 3.89 K/mm3 1.0-5.0 MONOCYTE # (test code=MO#) 0.59 K/mm3 0-0.8 EOSINOPHIL # (test code=EO#) 0.33 K/mm3 0.0-0.5 BASOPHIL # (test code=BA#) 0.06 K/mm3 0.0-0.2 NUCLEATED RBC # (test code=NRBC#) 0.00 K/mm3 0.0-0.1 MANUAL DIFF REQUIRED (test code=MDIFF) YES STAIN ACCEPTABILITY (test code=STN ACCEPTABLE) TOTAL CELLS COUNTED (test code=TCC) #CELLS SEGMENTED NEUTROPHILS (test code=SEG) % 39-69 LYMPHOCYTE (test code=LYMPH) % 25-55 MONOCYTE (test code=MON) % 0-10 EOSINOPHIL (test code=EOS) % 0.0-5.0 CABOT RINGS (test code=CAB) MORPHOLOGY COMMENT (test code=MOC) PLATELET ESTIMATE (test code=PLTEST) PLATELET MORPHOLOGY (test code=PLTMORPH) PATIENT WANTS PHLEB TO COME BACK AFTER BREAKFAST V.LAB.11/17/18 0628CBC W/MANUAL [id number] 10:53:00* Test Item Value Reference Range Comments WHITE BLOOD CELL (test code=WBC) 8.2 K/mm3 4.5-12.5 RED BLOOD CELL (test code=RBC) 3.12 mill/mm3 3.7-5.2 HEMOGLOBIN (test code=HGB) 8.6 gram/dL 11.5-15.5 HEMATOCRIT (test code=HCT) 28.7 % 36.0-46.0 MEAN CELL VOLUME (test code=MCV) 92.0 fL 80-98 MEAN CELL HGB (test code=MCH) 27.6 picogram 27.0-33.0 MEAN CELL HGB CONCETRATION (test code=MCHC) 30.0 gram/dL 33.0-36.0 RED CELL DISTRIBUTION WIDTH (test code=RDW) 19.5 % 11.6-16.2 RED CELL DISTRIBUTION WIDTH SD (test code=RDW-SD) 64.6 fL 37.0-51.0 PLATELET COUNT (test code=PLT) 71 K/mm3 150-450 RESULT VERIFIED BY REPEAT ANALYSIS MEAN PLATELET VOLUME (test code=MPV) 11.4 fL 6.7-11.0 IMMATURE GRANULOCYTE % (test code=IG%) 0.9 % 0.0-5.0 NUCLEATED RBC % (test code=NRBC%) 0.0 % 0-0 NEUTROPHIL # (test code=NT#) 3.26 K/mm3 1.8-7.7 IMMATURE GRANULOCYTE # (test code=IG#) 0.07 x10 3/uL 0-0.03 LYMPHOCYTE # (test code=LY#) 3.89 K/mm3 1.0-5.0 MONOCYTE # (test code=MO#) 0.59 K/mm3 0-0.8 EOSINOPHIL # (test code=EO#) 0.33 K/mm3 0.0-0.5 BASOPHIL # (test code=BA#) 0.06 K/mm3 0.0-0.2 NUCLEATED RBC # (test code=NRBC#) 0.00 K/mm3 0.0-0.1 MANUAL DIFF REQUIRED (test code=MDIFF) YES STAIN ACCEPTABILITY (test code=STN ACCEPTABLE) TOTAL CELLS COUNTED (test code=TCC) #CELLS SEGMENTED NEUTROPHILS (test code=SEG) % 39-69 LYMPHOCYTE (test code=LYMPH) % 25-55 MONOCYTE (test code=MON) % 0-10 EOSINOPHIL (test code=EOS) % 0.0-5.0 CABOT RINGS (test code=CAB) MORPHOLOGY COMMENT (test code=MOC) PLATELET ESTIMATE (test code=PLTEST) PLATELET MORPHOLOGY (test code=PLTMORPH) PATIENT WANTS PHLEB TO COME BACK AFTER BREAKFAST V.LAB.11/17/18 0628CBC W/MANUAL [id number] 10:53:00* Test Item Value Reference Range Comments WHITE BLOOD CELL (test code=WBC) 8.2 K/mm3 4.5-12.5 RED BLOOD CELL (test code=RBC) 3.12 mill/mm3 3.7-5.2 HEMOGLOBIN (test code=HGB) 8.6 gram/dL 11.5-15.5 HEMATOCRIT (test code=HCT) 28.7 % 36.0-46.0 MEAN CELL VOLUME (test code=MCV) 92.0 fL 80-98 MEAN CELL HGB (test code=MCH) 27.6 picogram 27.0-33.0 MEAN CELL HGB CONCETRATION (test code=MCHC) 30.0 gram/dL 33.0-36.0 RED CELL DISTRIBUTION WIDTH (test code=RDW) 19.5 % 11.6-16.2 RED CELL DISTRIBUTION WIDTH SD (test code=RDW-SD) 64.6 fL 37.0-51.0 PLATELET COUNT (test code=PLT) 71 K/mm3 150-450 RESULT VERIFIED BY REPEAT ANALYSIS MEAN PLATELET VOLUME (test code=MPV) 11.4 fL 6.7-11.0 IMMATURE GRANULOCYTE % (test code=IG%) 0.9 % 0.0-5.0 NUCLEATED RBC % (test code=NRBC%) 0.0 % 0-0 NEUTROPHIL # (test code=NT#) 3.26 K/mm3 1.8-7.7 IMMATURE GRANULOCYTE # (test code=IG#) 0.07 x10 3/uL 0-0.03 LYMPHOCYTE # (test code=LY#) 3.89 K/mm3 1.0-5.0 MONOCYTE # (test code=MO#) 0.59 K/mm3 0-0.8 EOSINOPHIL # (test code=EO#) 0.33 K/mm3 0.0-0.5 BASOPHIL # (test code=BA#) 0.06 K/mm3 0.0-0.2 NUCLEATED RBC # (test code=NRBC#) 0.00 K/mm3 0.0-0.1 MANUAL DIFF REQUIRED (test code=MDIFF) YES STAIN ACCEPTABILITY (test code=STN ACCEPTABLE) TOTAL CELLS COUNTED (test code=TCC) #CELLS SEGMENTED NEUTROPHILS (test code=SEG) % 39-69 LYMPHOCYTE (test code=LYMPH) % 25-55 MONOCYTE (test code=MON) % 0-10 EOSINOPHIL (test code=EOS) % 0.0-5.0 MORPHOLOGY COMMENT (test code=MOC) PLATELET ESTIMATE (test code=PLTEST) PLATELET MORPHOLOGY (test code=PLTMORPH) PATIENT WANTS PHLEB TO COME BACK AFTER BREAKFAST V.LAB.AR11/17/18 0628CB W/MANUAL [id number] 10:53:00* Test Item Value Reference Range Comments WHITE BLOOD CELL (test code=WBC) 8.2 K/mm3 4.5-12.5 RED BLOOD CELL (test code=RBC) 3.12 mill/mm3 3.7-5.2 HEMOGLOBIN (test code=HGB) 8.6 gram/dL 11.5-15.5 HEMATOCRIT (test code=HCT) 28.7 % 36.0-46.0 MEAN CELL VOLUME (test code=MCV) 92.0 fL 80-98 MEAN CELL HGB (test code=MCH) 27.6 picogram 27.0-33.0 MEAN CELL HGB CONCETRATION (test code=MCHC) 30.0 gram/dL 33.0-36.0 RED CELL DISTRIBUTION WIDTH (test code=RDW) 19.5 % 11.6-16.2 RED CELL DISTRIBUTION WIDTH SD (test code=RDW-SD) 64.6 fL 37.0-51.0 PLATELET COUNT (test code=PLT) 71 K/mm3 150-450 RESULT VERIFIED BY REPEAT ANALYSIS MEAN PLATELET VOLUME (test code=MPV) 11.4 fL 6.7-11.0 IMMATURE GRANULOCYTE % (test code=IG%) 0.9 % 0.0-5.0 NUCLEATED RBC % (test code=NRBC%) 0.0 % 0-0 NEUTROPHIL # (test code=NT#) 3.26 K/mm3 1.8-7.7 IMMATURE GRANULOCYTE # (test code=IG#) 0.07 x10 3/uL 0-0.03 LYMPHOCYTE # (test code=LY#) 3.89 K/mm3 1.0-5.0 MONOCYTE # (test code=MO#) 0.59 K/mm3 0-0.8 EOSINOPHIL # (test code=EO#) 0.33 K/mm3 0.0-0.5 BASOPHIL # (test code=BA#) 0.06 K/mm3 0.0-0.2 NUCLEATED RBC # (test code=NRBC#) 0.00 K/mm3 0.0-0.1 MANUAL DIFF REQUIRED (test code=MDIFF) YES STAIN ACCEPTABILITY (test code=STN ACCEPTABLE) TOTAL CELLS COUNTED (test code=TCC) #CELLS SEGMENTED NEUTROPHILS (test code=SEG) % 39-69 LYMPHOCYTE (test code=LYMPH) % 25-55 MONOCYTE (test code=MON) % 0-10 EOSINOPHIL (test code=EOS) % 0.0-5.0 CABOT RINGS (test code=CAB) MORPHOLOGY COMMENT (test code=MOC) PLATELET ESTIMATE (test code=PLTEST) PLATELET MORPHOLOGY (test code=PLTMORPH) PATIENT WANTS PHLEB TO COME BACK AFTER BREAKFAST V.LAB.AR11/17/18 0628CBC W/O [id number] 17:57:00* Test Item Value Reference Range Comments WHITE BLOOD CELL (test code=WBC) 6.2 K/mm3 4.5-12.5 RED BLOOD CELL (test code=RBC) 3.31 mill/mm3 3.7-5.2 HEMOGLOBIN (test code=HGB) 9.1 gram/dL 11.5-15.5 HEMATOCRIT (test code=HCT) 29.3 % 36.0-46.0 MEAN CELL VOLUME (test code=MCV) 88.5 fL 80-98 MEAN CELL HGB (test code=MCH) 27.5 picogram 27.0-33.0 MEAN CELL HGB CONCETRATION (test code=MCHC) 31.1 gram/dL 33.0-36.0 RED CELL DISTRIBUTION WIDTH (test code=RDW) 19.8 % 11.6-16.2 PLATELET COUNT (test code=PLT) 23 K/mm3 150-450 Results called to [id number] by V.LAB.WJC 11/16/18 0705Critical results verified and read back by Nurse? Y PATHOLOGISTS [id number] 17:57:00* Test Item Value Reference Range Comments PATHOLOGISTS FINDINGS (test code=PATH) PATH NOTES MARKED THROMBOCYTOPENIA. MILD ANEMIA WITHANISO/POILILOCYTOSIS. NO BLASTS IDENTIFIED. LEV CHICAS M.D.11/16/18 CBC W/O [id number] 17:56:00* Test Item Value Reference Range Comments WHITE BLOOD CELL (test code=WBC) 6.2 K/mm3 4.5-12.5 RED BLOOD CELL (test code=RBC) 3.31 mill/mm3 3.7-5.2 HEMOGLOBIN (test code=HGB) 9.1 gram/dL 11.5-15.5 HEMATOCRIT (test code=HCT) 29.3 % 36.0-46.0 MEAN CELL VOLUME (test code=MCV) 88.5 fL 80-98 MEAN CELL HGB (test code=MCH) 27.5 picogram 27.0-33.0 MEAN CELL HGB CONCETRATION (test code=MCHC) 31.1 gram/dL 33.0-36.0 RED CELL DISTRIBUTION WIDTH (test code=RDW) 19.8 % 11.6-16.2 PLATELET COUNT (test code=PLT) 23 K/mm3 150-450 Results called to [id number] by V.LAB.WJC 11/16/18 0705Critical results verified and read back by Nurse? Y PATHOLOGISTS [id number] 17:56:00* Test Item Value Reference Range Comments PATHOLOGISTS FINDINGS (test code=PATH) PATH NOTES [id number] 15:20:00* Test Item Value Reference Range Comments CREATININE (test code=CREAT) 2.50 mg/dL 0.55-1.02 Note change in reference range due to change in reagent. SPECIMEN COMMENTS: peripheral stickCBC W/O [id number] 15:13:00* Test Item Value Reference Range Comments WHITE BLOOD CELL (test code=WBC) 6.2 K/mm3 4.5-12.5 RED BLOOD CELL (test code=RBC) 3.31 mill/mm3 3.7-5.2 HEMOGLOBIN (test code=HGB) 9.1 gram/dL 11.5-15.5 HEMATOCRIT (test code=HCT) 29.3 % 36.0-46.0 MEAN CELL VOLUME (test code=MCV) 88.5 fL 80-98 MEAN CELL HGB (test code=MCH) 27.5 picogram 27.0-33.0 MEAN CELL HGB CONCETRATION (test code=MCHC) 31.1 gram/dL 33.0-36.0 RED CELL DISTRIBUTION WIDTH (test code=RDW) 19.8 % 11.6-16.2 PLATELET COUNT (test code=PLT) 23 K/mm3 150-450 Results called to [id number] by V.LAB.WANNETTE 11/16/18 0705Critical results verified and read back by Nurse? Y BASIC METABOLIC [id number] 07:29:00* Test Item Value Reference Range Comments SODIUM (test code=NA) 148 mmol/L 136-145 POTASSIUM (test code=K) 3.5 mmol/L 3.5-5.1 CHLORIDE (test code=CL) 111.0 mmol/L 98-107 CARBON DIOXIDE (test code=CO2) 26.0 mmol/L 21-32 ANION GAP (test code=GAP) 14.5 10-20 GLUCOSE (test code=GLU) 101 mg/dL 74-106 BLOOD UREA NITROGEN (test code=BUN) 64 mg/dL 7-18 GLOMERULAR FILTRATION RATE (test code=GFR) 20 mL/min >=60 Estimated GFR by using Modified MDRD formula.Chronic kidney disease is defined as either kidney damageor GFR <60 mL/min/1.73 m2 for >3 months. CREATININE (test code=CREAT) 2.50 mg/dL 0.55-1.02 Note change in reference range due to change in reagent. BUN/CREATININE RATIO (test code=BUN/CREA) 25.6 10-20 CALCIUM (test code=CA) 8.3 mg/dL 8.5-10.1 THYROID STIMULATING [id number] 07:29:00* Test Item Value Reference Range Comments THYROID STIMULATING HORMONE (test code=TSH) 9.440 uIU/mL 0.36-3.74 TSH REFERENCE RANGES: EUTHYROID: 0.35 - 4.3 mIU/mL HYPO : > 5.5 mIU/mL HYPER : < 0.35 mIU/mL BASIC METABOLIC [id number] 07:09:00* Test Item Value Reference Range Comments SODIUM (test code=NA) 148 mmol/L 136-145 POTASSIUM (test code=K) 3.5 mmol/L 3.5-5.1 CHLORIDE (test code=CL) 111.0 mmol/L 98-107 CARBON DIOXIDE (test code=CO2) mmol/L 21-32 ANION GAP (test code=GAP) 10-20 GLUCOSE (test code=GLU) mg/dL 74-106 BLOOD UREA NITROGEN (test code=BUN) mg/dL 7-18 GLOMERULAR FILTRATION RATE (test code=GFR) mL/min >=60 CREATININE (test code=CREAT) mg/dL 0.55-1.02 BUN/CREATININE RATIO (test code=BUN/CREA) 10-20 CALCIUM (test code=CA) mg/dL 8.5-10.1 THYROID STIMULATING [id number] 07:09:00* Test Item Value Reference Range Comments THYROID STIMULATING HORMONE (test code=TSH) uIU/mL 0.36-3.74 CBC W/O [id number] 07:05:00* Test Item Value Reference Range Comments WHITE BLOOD CELL (test code=WBC) 6.2 K/mm3 4.5-12.5 RED BLOOD CELL (test code=RBC) 3.31 mill/mm3 3.7-5.2 HEMOGLOBIN (test code=HGB) 9.1 gram/dL 11.5-15.5 HEMATOCRIT (test code=HCT) 29.3 % 36.0-46.0 MEAN CELL VOLUME (test code=MCV) 88.5 fL 80-98 MEAN CELL HGB (test code=MCH) 27.5 picogram 27.0-33.0 MEAN CELL HGB CONCETRATION (test code=MCHC) 31.1 gram/dL 33.0-36.0 RED CELL DISTRIBUTION WIDTH (test code=RDW) 19.8 % 11.6-16.2 PLATELET COUNT (test code=PLT) 23 K/mm3 150-450 Results called to [id number] by [employer].LAB.WJC 11/16/18 0705Critical results verified and read back by Nurse? Y CBC W/MANUAL [id number] 07:25:00* Test Item Value Reference Range Comments WHITE BLOOD CELL (test code=WBC) 7.0 K/mm3 4.5-12.5 RED BLOOD CELL (test code=RBC) 3.04 mill/mm3 3.7-5.2 HEMOGLOBIN (test code=HGB) 8.4 gram/dL 11.5-15.5 HEMATOCRIT (test code=HCT) 27.5 % 36.0-46.0 MEAN CELL VOLUME (test code=MCV) 90.5 fL 80-98 MEAN CELL HGB (test code=MCH) 27.6 picogram 27.0-33.0 MEAN CELL HGB CONCETRATION (test code=MCHC) 30.5 gram/dL 33.0-36.0 RED CELL DISTRIBUTION WIDTH (test code=RDW) 19.9 % 11.6-16.2 RED CELL DISTRIBUTION WIDTH SD (test code=RDW-SD) 65.1 fL 37.0-51.0 PLATELET COUNT (test code=PLT) 35 K/mm3 150-450 Results called to [id number] by [employer].LAB.JQ 11/15/18 0509Critical results verified and read back by Nurse? Y MEAN PLATELET VOLUME (test code=MPV) 12.2 fL 6.7-11.0 IMMATURE GRANULOCYTE % (test code=IG%) 0.9 % 0.0-5.0 NUCLEATED RBC % (test code=NRBC%) 0.0 % 0-0 NEUTROPHIL # (test code=NT#) 3.45 K/mm3 1.8-7.7 IMMATURE GRANULOCYTE # (test code=IG#) 0.06 x10 3/uL 0-0.03 LYMPHOCYTE # (test code=LY#) 2.74 K/mm3 1.0-5.0 MONOCYTE # (test code=MO#) 0.55 K/mm3 0-0.8 EOSINOPHIL # (test code=EO#) 0.12 K/mm3 0.0-0.5 BASOPHIL # (test code=BA#) 0.04 K/mm3 0.0-0.2 NUCLEATED RBC # (test code=NRBC#) 0.00 K/mm3 0.0-0.1 MANUAL DIFF REQUIRED (test code=MDIFF) YES STAIN ACCEPTABILITY (test code=STN ACCEPTABLE) STAIN ACCEPTABLE TOTAL CELLS COUNTED (test code=TCC) 112 #CELLS SEGMENTED NEUTROPHILS (test code=SEG) 67.8 % 39-69 BAND NEUTROPHIL (test code=BAND) 0.9 % 0-10 LYMPHOCYTE (test code=LYMPH) 24.1 % 25-55 REACTIVE LYMPH (test code=RELYMPH) 0 % MONOCYTE (test code=MON) 4.5 % 0-10 EOSINOPHIL (test code=EOS) 0 % 0.0-5.0 BASOPHIL (test code=BASO) 2.7 % 0-1.0 METAMYELOCYTE (test code=META) 0 % 0-0 MYELOCYTE (test code=MYELO) 0 % 0.0-0.0 PROMYELOCYTE (test code=PROM) 0 % 0-0 ANISOCYTOSIS (test code=ANISO) 2+ MACROCYTOSIS (test code=MACR) 2+ PLATELET ESTIMATE (test code=PLTEST) DECREASED PLATELET MORPHOLOGY (test code=PLTMORPH) NORMAL IMMATURE FORMS (test code=IMMAT) 0 % 0-0 BASIC METABOLIC [id number] 05:22:00* Test Item Value Reference Range Comments SODIUM (test code=NA) 146 mmol/L 136-145 POTASSIUM (test code=K) 2.8 mmol/L 3.5-5.1 Results called to [id number] by V.LAB.AG1 11/15/18 0522Critical results verified and read back by Nurse? Y CHLORIDE (test code=CL) 110.0 mmol/L 98-107 CARBON DIOXIDE (test code=CO2) 26.0 mmol/L 21-32 ANION GAP (test code=GAP) 12.8 10-20 GLUCOSE (test code=GLU) 151 mg/dL 74-106 BLOOD UREA NITROGEN (test code=BUN) 68 mg/dL 7-18 GLOMERULAR FILTRATION RATE (test code=GFR) 18 mL/min >=60 Estimated GFR by using Modified MDRD formula.Chronic kidney disease is defined as either kidney damageor GFR <60 mL/min/1.73 m2 for >3 months. CREATININE (test code=CREAT) 2.80 mg/dL 0.55-1.02 Note change in reference range due to change in reagent. BUN/CREATININE RATIO (test code=BUN/CREA) 24.3 10-20 CALCIUM (test code=CA) 8.3 mg/dL 8.5-10.1 CBC W/MANUAL [id number] 05:09:00* Test Item Value Reference Range Comments WHITE BLOOD CELL (test code=WBC) 7.0 K/mm3 4.5-12.5 RED BLOOD CELL (test code=RBC) 3.04 mill/mm3 3.7-5.2 HEMOGLOBIN (test code=HGB) 8.4 gram/dL 11.5-15.5 HEMATOCRIT (test code=HCT) 27.5 % 36.0-46.0 MEAN CELL VOLUME (test code=MCV) 90.5 fL 80-98 MEAN CELL HGB (test code=MCH) 27.6 picogram 27.0-33.0 MEAN CELL HGB CONCETRATION (test code=MCHC) 30.5 gram/dL 33.0-36.0 RED CELL DISTRIBUTION WIDTH (test code=RDW) 19.9 % 11.6-16.2 RED CELL DISTRIBUTION WIDTH SD (test code=RDW-SD) 65.1 fL 37.0-51.0 PLATELET COUNT (test code=PLT) 35 K/mm3 150-450 Results called to [id number] by V.LAB.JQ 11/15/18 0509Critical results verified and read back by Nurse? Y MEAN PLATELET VOLUME (test code=MPV) 12.2 fL 6.7-11.0 IMMATURE GRANULOCYTE % (test code=IG%) 0.9 % 0.0-5.0 NUCLEATED RBC % (test code=NRBC%) 0.0 % 0-0 NEUTROPHIL # (test code=NT#) 3.45 K/mm3 1.8-7.7 IMMATURE GRANULOCYTE # (test code=IG#) 0.06 x10 3/uL 0-0.03 LYMPHOCYTE # (test code=LY#) 2.74 K/mm3 1.0-5.0 MONOCYTE # (test code=MO#) 0.55 K/mm3 0-0.8 EOSINOPHIL # (test code=EO#) 0.12 K/mm3 0.0-0.5 BASOPHIL # (test code=BA#) 0.04 K/mm3 0.0-0.2 NUCLEATED RBC # (test code=NRBC#) 0.00 K/mm3 0.0-0.1 MANUAL DIFF REQUIRED (test code=MDIFF) YES STAIN ACCEPTABILITY (test code=STN ACCEPTABLE) TOTAL CELLS COUNTED (test code=TCC) #CELLS SEGMENTED NEUTROPHILS (test code=SEG) % 39-69 LYMPHOCYTE (test code=LYMPH) % 25-55 MONOCYTE (test code=MON) % 0-10 EOSINOPHIL (test code=EOS) % 0.0-5.0 CABOT RINGS (test code=CAB) MORPHOLOGY COMMENT (test code=MOC) PLATELET ESTIMATE (test code=PLTEST) PLATELET MORPHOLOGY (test code=PLTMORPH) CBC W/MANUAL [id number] 05:09:00* Test Item Value Reference Range Comments WHITE BLOOD CELL (test code=WBC) 7.0 K/mm3 4.5-12.5 RED BLOOD CELL (test code=RBC) 3.04 mill/mm3 3.7-5.2 HEMOGLOBIN (test code=HGB) 8.4 gram/dL 11.5-15.5 HEMATOCRIT (test code=HCT) 27.5 % 36.0-46.0 MEAN CELL VOLUME (test code=MCV) 90.5 fL 80-98 MEAN CELL HGB (test code=MCH) 27.6 picogram 27.0-33.0 MEAN CELL HGB CONCETRATION (test code=MCHC) 30.5 gram/dL 33.0-36.0 RED CELL DISTRIBUTION WIDTH (test code=RDW) 19.9 % 11.6-16.2 RED CELL DISTRIBUTION WIDTH SD (test code=RDW-SD) 65.1 fL 37.0-51.0 PLATELET COUNT (test code=PLT) 35 K/mm3 150-450 Results called to [id number] by MARI[facility] 11/15/18 0509Critical results verified and read back by Nurse? Y MEAN PLATELET VOLUME (test code=MPV) 12.2 fL 6.7-11.0 IMMATURE GRANULOCYTE % (test code=IG%) 0.9 % 0.0-5.0 NUCLEATED RBC % (test code=NRBC%) 0.0 % 0-0 NEUTROPHIL # (test code=NT#) 3.45 K/mm3 1.8-7.7 IMMATURE GRANULOCYTE # (test code=IG#) 0.06 x10 3/uL 0-0.03 LYMPHOCYTE # (test code=LY#) 2.74 K/mm3 1.0-5.0 MONOCYTE # (test code=MO#) 0.55 K/mm3 0-0.8 EOSINOPHIL # (test code=EO#) 0.12 K/mm3 0.0-0.5 BASOPHIL # (test code=BA#) 0.04 K/mm3 0.0-0.2 NUCLEATED RBC # (test code=NRBC#) 0.00 K/mm3 0.0-0.1 MANUAL DIFF REQUIRED (test code=MDIFF) YES STAIN ACCEPTABILITY (test code=STN ACCEPTABLE) TOTAL CELLS COUNTED (test code=TCC) #CELLS SEGMENTED NEUTROPHILS (test code=SEG) % 39-69 LYMPHOCYTE (test code=LYMPH) % 25-55 MONOCYTE (test code=MON) % 0-10 EOSINOPHIL (test code=EOS) % 0.0-5.0 CABOT RINGS (test code=CAB) MORPHOLOGY COMMENT (test code=MOC) PLATELET ESTIMATE (test code=PLTEST) PLATELET MORPHOLOGY (test code=PLTMORPH) CBC W/MANUAL [id number] 05:09:00* Test Item Value Reference Range Comments WHITE BLOOD CELL (test code=WBC) 7.0 K/mm3 4.5-12.5 RED BLOOD CELL (test code=RBC) 3.04 mill/mm3 3.7-5.2 HEMOGLOBIN (test code=HGB) 8.4 gram/dL 11.5-15.5 HEMATOCRIT (test code=HCT) 27.5 % 36.0-46.0 MEAN CELL VOLUME (test code=MCV) 90.5 fL 80-98 MEAN CELL HGB (test code=MCH) 27.6 picogram 27.0-33.0 MEAN CELL HGB CONCETRATION (test code=MCHC) 30.5 gram/dL 33.0-36.0 RED CELL DISTRIBUTION WIDTH (test code=RDW) 19.9 % 11.6-16.2 RED CELL DISTRIBUTION WIDTH SD (test code=RDW-SD) 65.1 fL 37.0-51.0 PLATELET COUNT (test code=PLT) 35 K/mm3 150-450 Results called to [id number] by MARIUM 11/15/18 0509Critical results verified and read back by Nurse? Y MEAN PLATELET VOLUME (test code=MPV) 12.2 fL 6.7-11.0 IMMATURE GRANULOCYTE % (test code=IG%) 0.9 % 0.0-5.0 NUCLEATED RBC % (test code=NRBC%) 0.0 % 0-0 NEUTROPHIL # (test code=NT#) 3.45 K/mm3 1.8-7.7 IMMATURE GRANULOCYTE # (test code=IG#) 0.06 x10 3/uL 0-0.03 LYMPHOCYTE # (test code=LY#) 2.74 K/mm3 1.0-5.0 MONOCYTE # (test code=MO#) 0.55 K/mm3 0-0.8 EOSINOPHIL # (test code=EO#) 0.12 K/mm3 0.0-0.5 BASOPHIL # (test code=BA#) 0.04 K/mm3 0.0-0.2 NUCLEATED RBC # (test code=NRBC#) 0.00 K/mm3 0.0-0.1 MANUAL DIFF REQUIRED (test code=MDIFF) YES STAIN ACCEPTABILITY (test code=STN ACCEPTABLE) TOTAL CELLS COUNTED (test code=TCC) #CELLS SEGMENTED NEUTROPHILS (test code=SEG) % 39-69 LYMPHOCYTE (test code=LYMPH) % 25-55 MONOCYTE (test code=MON) % 0-10 EOSINOPHIL (test code=EOS) % 0.0-5.0 MORPHOLOGY COMMENT (test code=MOC) PLATELET ESTIMATE (test code=PLTEST) PLATELET MORPHOLOGY (test code=PLTMORPH) CBC W/MANUAL [id number] 05:09:00* Test Item Value Reference Range Comments WHITE BLOOD CELL (test code=WBC) 7.0 K/mm3 4.5-12.5 RED BLOOD CELL (test code=RBC) 3.04 mill/mm3 3.7-5.2 HEMOGLOBIN (test code=HGB) 8.4 gram/dL 11.5-15.5 HEMATOCRIT (test code=HCT) 27.5 % 36.0-46.0 MEAN CELL VOLUME (test code=MCV) 90.5 fL 80-98 MEAN CELL HGB (test code=MCH) 27.6 picogram 27.0-33.0 MEAN CELL HGB CONCETRATION (test code=MCHC) 30.5 gram/dL 33.0-36.0 RED CELL DISTRIBUTION WIDTH (test code=RDW) 19.9 % 11.6-16.2 RED CELL DISTRIBUTION WIDTH SD (test code=RDW-SD) 65.1 fL 37.0-51.0 PLATELET COUNT (test code=PLT) 35 K/mm3 150-450 Results called to [id number] by [email or web address] 11/15/18 0509Critical results verified and read back by Nurse? Y MEAN PLATELET VOLUME (test code=MPV) 12.2 fL 6.7-11.0 IMMATURE GRANULOCYTE % (test code=IG%) 0.9 % 0.0-5.0 NUCLEATED RBC % (test code=NRBC%) 0.0 % 0-0 NEUTROPHIL # (test code=NT#) 3.45 K/mm3 1.8-7.7 IMMATURE GRANULOCYTE # (test code=IG#) 0.06 x10 3/uL 0-0.03 LYMPHOCYTE # (test code=LY#) 2.74 K/mm3 1.0-5.0 MONOCYTE # (test code=MO#) 0.55 K/mm3 0-0.8 EOSINOPHIL # (test code=EO#) 0.12 K/mm3 0.0-0.5 BASOPHIL # (test code=BA#) 0.04 K/mm3 0.0-0.2 NUCLEATED RBC # (test code=NRBC#) 0.00 K/mm3 0.0-0.1 MANUAL DIFF REQUIRED (test code=MDIFF) YES STAIN ACCEPTABILITY (test code=STN ACCEPTABLE) TOTAL CELLS COUNTED (test code=TCC) #CELLS SEGMENTED NEUTROPHILS (test code=SEG) % 39-69 LYMPHOCYTE (test code=LYMPH) % 25-55 MONOCYTE (test code=MON) % 0-10 MORPHOLOGY COMMENT (test code=MOC) PLATELET ESTIMATE (test code=PLTEST) PLATELET MORPHOLOGY (test code=PLTMORPH) CBC W/MANUAL [id number] 05:09:00* Test Item Value Reference Range Comments WHITE BLOOD CELL (test code=WBC) 7.0 K/mm3 4.5-12.5 RED BLOOD CELL (test code=RBC) 3.04 mill/mm3 3.7-5.2 HEMOGLOBIN (test code=HGB) 8.4 gram/dL 11.5-15.5 HEMATOCRIT (test code=HCT) 27.5 % 36.0-46.0 MEAN CELL VOLUME (test code=MCV) 90.5 fL 80-98 MEAN CELL HGB (test code=MCH) 27.6 picogram 27.0-33.0 MEAN CELL HGB CONCETRATION (test code=MCHC) 30.5 gram/dL 33.0-36.0 RED CELL DISTRIBUTION WIDTH (test code=RDW) 19.9 % 11.6-16.2 RED CELL DISTRIBUTION WIDTH SD (test code=RDW-SD) 65.1 fL 37.0-51.0 PLATELET COUNT (test code=PLT) 35 K/mm3 150-450 Results called to [id number] by MARIUM 11/15/18 0509Critical results verified and read back by Nurse? Y MEAN PLATELET VOLUME (test code=MPV) 12.2 fL 6.7-11.0 IMMATURE GRANULOCYTE % (test code=IG%) 0.9 % 0.0-5.0 NUCLEATED RBC % (test code=NRBC%) 0.0 % 0-0 NEUTROPHIL # (test code=NT#) 3.45 K/mm3 1.8-7.7 IMMATURE GRANULOCYTE # (test code=IG#) 0.06 x10 3/uL 0-0.03 LYMPHOCYTE # (test code=LY#) 2.74 K/mm3 1.0-5.0 MONOCYTE # (test code=MO#) 0.55 K/mm3 0-0.8 EOSINOPHIL # (test code=EO#) 0.12 K/mm3 0.0-0.5 BASOPHIL # (test code=BA#) 0.04 K/mm3 0.0-0.2 NUCLEATED RBC # (test code=NRBC#) 0.00 K/mm3 0.0-0.1 MANUAL DIFF REQUIRED (test code=MDIFF) YES STAIN ACCEPTABILITY (test code=STN ACCEPTABLE) TOTAL CELLS COUNTED (test code=TCC) #CELLS SEGMENTED NEUTROPHILS (test code=SEG) % 39-69 LYMPHOCYTE (test code=LYMPH) % 25-55 MONOCYTE (test code=MON) % 0-10 EOSINOPHIL (test code=EOS) % 0.0-5.0 CABOT RINGS (test code=CAB) MORPHOLOGY COMMENT (test code=MOC) PLATELET ESTIMATE (test code=PLTEST) PLATELET MORPHOLOGY (test code=PLTMORPH) PROTHROMBIN [id number] 19:12:00* Test Item Value Reference Range Comments PROTHROMBIN TIME PATIENT (test code=PTP) 17.3 seconds 9.0-14.0 INTERNATIONAL NORMAL RATIO (test code=INR) 1.5 0.8-1.2 The therapeutic range for oral anticoagulant therapy formost indications is an international normalized ratio (INR)of between 2.0 and 3.0. The recommended therapeutic INRrange for various clinical situations is listed below: Clinical Situation INR range Pulmonary e mbolism treatment (2.0-3.0)Venous thrombosis treatmentVenous thrombosis prophylaxis (high risk surgery)Prevention of systemic embolism from: Acute myocardial infarction Valvular heart disease Atrial fibrillation Mechanical prosthetic heart valves (2.5-3.5) IS PATIENT ON ANTICOAGULANTS? [facility] [id number] 19:00:00* Test Item Value Reference Range Comments HEMOGLOBIN (test code=HGB) 8.4 gram/dL 11.5-15.5 HEMATOCRIT (test code=HCT) 27.5 % 36.0-46.0 - CT ABD PELVIS W/O [id number] 16:01:00 Name: SIOBHAN BARBOSA [facility] : 1965 Age/S: 53 / F Jana Whiting Unit #: [id number] Loc: [place] [address] Phys: Fabiana Drake MD Acct: [id number] Dis Date: Status: ADM IN PHONE #: [phone] Exam Date: 11/14/2018 1533 FAX #: [phone] Reason: FIRM DISTENDED ABDOMENT. ORAL CONTRAST ONLY EXAMS: CPT CODE: [id number] CT ABD PELVIS W/O CONT [id number] REASON FOR EXAM: FIRM DISTENDED ABDOMENT. ORAL CONTRAST ONLY EXAM ORDER DATE: 11/14/2018 11:28 AM Ordering M.D.: Fabiana Drake MD PROCEDURE: - CT ABD PELVIS W/O CONT COMPARISON: FINDINGS: CT images of the abdomen and pelvis were obtained without IV and without oral contrast at 5mm. Dose modulation, iterative reconstruction, and/or weight based adjustment of the MA/KV was utilized to reduce the radiation dose to as low as reasonably achievable. The pancreas is grossly within normal limits. The spleen is slightly enlarged measuring 14 cm. Radiopaque stones seen in the gallbladder The kidneys are atrophic consistent with chronic kidney disease with large pelvic stones on the left. A double-J left ureteral stent noted. The urinary bladder is contracted with a suprapubic catheter The colon, small bowel, and stomach are within normal limits without evidence of obstruction. The a ppendix is unremarkable No evidence of free air . The uterus is un remarkable. IMPRESSION: Large right anterior abdominal wall hemo rrhage (24 x 10 cm) mostly on the right with some extension toward the l eft side. The liver is nodular in contour suggestive of cirrhosis. Ther e is a probable pseudomass or true hepatic mass in the caudate lobe area measuring approximately 10 cm. Examination is limited due to lack of intravenous contrast. Minimal free fluid in the abdomen and pelvis. Dr. Drake was informed of the findings by telephone at 4:00 PM FOR INTERNAL CODING PURPOSES ONLY RESULT CODE: CVR at 1601 Reported and signed by: Jewel Reyez M.D. PAGE 1 Signed Report (CONTINUED) Name: SIOBHAN BARBOSA [facility] : [birth year] Age/S: 53 / F [address] [facility] Unit [facility]: [id number] Loc: [place] [address] Phys: Fabiana Drake MD Acct: [id number] Dis Date: Status: ADM IN PHONE #: [phone] Exam Date: 11/14/2018 1532 FAX #: [phone] Reason: FIRM DISTENDED ABDOMENT. ORAL CONTRAST ONLY EXAMS: CPT CODE: [id number] CT ABD PELVIS W/O CONT [id number] <Continued> CC: Fabiana Darke MD; Gray Knott Technologist:YESICA MORALES, RT(R) CT CTDI: DLP: Trnscb Date/Time: 11/14/2018 (1601) t.SDR.VTL Orig Print D/T: S: 11/14/2018 (1604) CTDI: DLP: PAGE 2 Signed Report CBC W/AUTO [id number] 06:38:00 * Test Item Value Reference Range Comments WHITE BLOOD CELL (test code=WBC) 7.2 K/mm3 4.5-12.5 RED BLOOD CELL (test code=RBC) 2.63 mill/mm3 3.7-5.2 HEMOGLOBIN (test code=HGB) 7.5 gram/dL 11.5-15.5 HEMATOCRIT (test code=HCT) 23.7 % 36.0-46.0 MEAN CELL VOLUME (test code=MCV) 90.1 fL 80-98 MEAN CELL HGB (test code=MCH) 28.5 picogram 27.0-33.0 MEAN CELL HGB CONCETRATION (test code=MCHC) 31.6 gram/dL 33.0-36.0 RED CELL DISTRIBUTION WIDTH (test code=RDW) 21.1 % 11.6-16.2 RED CELL DISTRIBUTION WIDTH SD (test code=RDW-SD) 66.3 fL 37.0-51.0 PLATELET COUNT (test code=PLT) 27 K/mm3 150-450 Results called to [id number] by MARIUM 11/14/18 0604Critical results verified and read back by Nurse? Y MEAN PLATELET VOLUME (test code=MPV) TEST NOT PERFORMED fL 6.7-11.0 NEUTROPHIL % (test code=NT%) 44.2 % 39.0-69.0 IMMATURE GRANULOCYTE % (test code=IG%) 0.4 % 0.0-5.0 LYMPHOCYTE % (test code=LY%) 45.3 % 25.0-55.0 MONOCYTE % (test code=MO%) 7.6 % 0.0-10.0 EOSINOPHIL % (test code=EO%) 1.9 % 0.0-5.0 BASOPHIL % (test code=BA%) 0.6 % 0.0-1.0 NUCLEATED RBC % (test code=NRBC%) 0.0 % 0-0 NEUTROPHIL # (test code=NT#) 3.20 K/mm3 1.8-7.7 IMMATURE GRANULOCYTE # (test code=IG#) 0.03 x10 3/uL 0-0.03 LYMPHOCYTE # (test code=LY#) 3.28 K/mm3 1.0-5.0 MONOCYTE # (test code=MO#) 0.55 K/mm3 0-0.8 EOSINOPHIL # (test code=EO#) 0.14 K/mm3 0.0-0.5 BASOPHIL # (test code=BA#) 0.04 K/mm3 0.0-0.2 NUCLEATED RBC # (test code=NRBC#) 0.00 K/mm3 0.0-0.1 MANUAL DIFF REQUIRED (test code=MDIFF) NO, ONLY SCAN NEEDED DIFFERENTIAL [id number] 06:38:00* Test Item Value Reference Range Comments STAIN ACCEPTABILITY (test code=STN ACCEPTABLE) STAIN ACCEPTABLE ANISOCYTOSIS (test code=ANISO) 3+ MACROCYTOSIS (test code=MACR) 2+ PLATELET ESTIMATE (test code=PLTEST) DECREASED PLATELET MORPHOLOGY (test code=PLTMORPH) NORMAL BASIC METABOLIC [id number] 06:11:00* Test Item Value Reference Range Comments SODIUM (test code=NA) 148 mmol/L 136-145 POTASSIUM (test code=K) 3.1 mmol/L 3.5-5.1 CHLORIDE (test code=CL) 114.0 mmol/L 98-107 CARBON DIOXIDE (test code=CO2) 22.0 mmol/L 21-32 ANION GAP (test code=GAP) 15.1 10-20 GLUCOSE (test code=GLU) 100 mg/dL 74-106 BLOOD UREA NITROGEN (test code=BUN) 70 mg/dL 7-18 GLOMERULAR FILTRATION RATE (test code=GFR) 18 mL/min >=60 Estimated GFR by using Modified MDRD formula.Chronic kidney disease is defined as either kidney damageor GFR <60 mL/min/1.73 m2 for >3 months. CREATININE (test code=CREAT) 2.70 mg/dL 0.55-1.02 Note change in reference range due to change in reagent. BUN/CREATININE RATIO (test code=BUN/CREA) 25.9 10-20 CALCIUM (test code=CA) 8.6 mg/dL 8.5-10.1 CBC W/AUTO [id number] 06:05:00* Test Item Value Reference Range Comments WHITE BLOOD CELL (test code=WBC) 7.2 K/mm3 4.5-12.5 RED BLOOD CELL (test code=RBC) 2.63 mill/mm3 3.7-5.2 HEMOGLOBIN (test code=HGB) 7.5 gram/dL 11.5-15.5 HEMATOCRIT (test code=HCT) 23.7 % 36.0-46.0 MEAN CELL VOLUME (test code=MCV) 90.1 fL 80-98 MEAN CELL HGB (test code=MCH) 28.5 picogram 27.0-33.0 MEAN CELL HGB CONCETRATION (test code=MCHC) 31.6 gram/dL 33.0-36.0 RED CELL DISTRIBUTION WIDTH (test code=RDW) 21.1 % 11.6-16.2 RED CELL DISTRIBUTION WIDTH SD (test code=RDW-SD) 66.3 fL 37.0-51.0 PLATELET COUNT (test code=PLT) 27 K/mm3 150-450 Results called to [id number] by MARIUM 11/14/18 0604Critical results verified and read back by Nurse? Y MEAN PLATELET VOLUME (test code=MPV) TEST NOT PERFORMED fL 6.7-11.0 NEUTROPHIL % (test code=NT%) 44.2 % 39.0-69.0 IMMATURE GRANULOCYTE % (test code=IG%) 0.4 % 0.0-5.0 LYMPHOCYTE % (test code=LY%) 45.3 % 25.0-55.0 MONOCYTE % (test code=MO%) 7.6 % 0.0-10.0 EOSINOPHIL % (test code=EO%) 1.9 % 0.0-5.0 BASOPHIL % (test code=BA%) 0.6 % 0.0-1.0 NUCLEATED RBC % (test code=NRBC%) 0.0 % 0-0 NEUTROPHIL # (test code=NT#) 3.20 K/mm3 1.8-7.7 IMMATURE GRANULOCYTE # (test code=IG#) 0.03 x10 3/uL 0-0.03 LYMPHOCYTE # (test code=LY#) 3.28 K/mm3 1.0-5.0 MONOCYTE # (test code=MO#) 0.55 K/mm3 0-0.8 EOSINOPHIL # (test code=EO#) 0.14 K/mm3 0.0-0.5 BASOPHIL # (test code=BA#) 0.04 K/mm3 0.0-0.2 NUCLEATED RBC # (test code=NRBC#) 0.00 K/mm3 0.0-0.1 MANUAL DIFF REQUIRED (test code=MDIFF) NO, ONLY SCAN NEEDED DIFFERENTIAL [id number] 06:05:00* Test Item Value Reference Range Comments STAIN ACCEPTABILITY (test code=STN ACCEPTABLE) CABOT RINGS (test code=CAB) MORPHOLOGY COMMENT (test code=MOC) PLATELET ESTIMATE (test code=PLTEST) PLATELET MORPHOLOGY (test code=PLTMORPH) CBC W/AUTO [id number] 06:05:00* Test Item Value Reference Range Comments WHITE BLOOD CELL (test code=WBC) 7.2 K/mm3 4.5-12.5 RED BLOOD CELL (test code=RBC) 2.63 mill/mm3 3.7-5.2 HEMOGLOBIN (test code=HGB) 7.5 gram/dL 11.5-15.5 HEMATOCRIT (test code=HCT) 23.7 % 36.0-46.0 MEAN CELL VOLUME (test code=MCV) 90.1 fL 80-98 MEAN CELL HGB (test code=MCH) 28.5 picogram 27.0-33.0 MEAN CELL HGB CONCETRATION (test code=MCHC) 31.6 gram/dL 33.0-36.0 RED CELL DISTRIBUTION WIDTH (test code=RDW) 21.1 % 11.6-16.2 RED CELL DISTRIBUTION WIDTH SD (test code=RDW-SD) 66.3 fL 37.0-51.0 PLATELET COUNT (test code=PLT) 27 K/mm3 150-450 Results called to [id number] by MARIUM 11/14/18 0604Critical results verified and read back by Nurse? Y MEAN PLATELET VOLUME (test code=MPV) TEST NOT PERFORMED fL 6.7-11.0 NEUTROPHIL % (test code=NT%) 44.2 % 39.0-69.0 IMMATURE GRANULOCYTE % (test code=IG%) 0.4 % 0.0-5.0 LYMPHOCYTE % (test code=LY%) 45.3 % 25.0-55.0 MONOCYTE % (test code=MO%) 7.6 % 0.0-10.0 EOSINOPHIL % (test code=EO%) 1.9 % 0.0-5.0 BASOPHIL % (test code=BA%) 0.6 % 0.0-1.0 NUCLEATED RBC % (test code=NRBC%) 0.0 % 0-0 NEUTROPHIL # (test code=NT#) 3.20 K/mm3 1.8-7.7 IMMATURE GRANULOCYTE # (test code=IG#) 0.03 x10 3/uL 0-0.03 LYMPHOCYTE # (test code=LY#) 3.28 K/mm3 1.0-5.0 MONOCYTE # (test code=MO#) 0.55 K/mm3 0-0.8 EOSINOPHIL # (test code=EO#) 0.14 K/mm3 0.0-0.5 BASOPHIL # (test code=BA#) 0.04 K/mm3 0.0-0.2 NUCLEATED RBC # (test code=NRBC#) 0.00 K/mm3 0.0-0.1 MANUAL DIFF REQUIRED (test code=MDIFF) NO, ONLY SCAN NEEDED DIFFERENTIAL [id number] 06:05:00* Test Item Value Reference Range Comments STAIN ACCEPTABILITY (test code=STN ACCEPTABLE) CABOT RINGS (test code=CAB) MORPHOLOGY COMMENT (test code=MOC) PLATELET ESTIMATE (test code=PLTEST) PLATELET MORPHOLOGY (test code=PLTMORPH) CBC W/AUTO [id number] 06:05:00* Test Item Value Reference Range Comments WHITE BLOOD CELL (test code=WBC) 7.2 K/mm3 4.5-12.5 RED BLOOD CELL (test code=RBC) 2.63 mill/mm3 3.7-5.2 HEMOGLOBIN (test code=HGB) 7.5 gram/dL 11.5-15.5 HEMATOCRIT (test code=HCT) 23.7 % 36.0-46.0 MEAN CELL VOLUME (test code=MCV) 90.1 fL 80-98 MEAN CELL HGB (test code=MCH) 28.5 picogram 27.0-33.0 MEAN CELL HGB CONCETRATION (test code=MCHC) 31.6 gram/dL 33.0-36.0 RED CELL DISTRIBUTION WIDTH (test code=RDW) 21.1 % 11.6-16.2 RED CELL DISTRIBUTION WIDTH SD (test code=RDW-SD) 66.3 fL 37.0-51.0 PLATELET COUNT (test code=PLT) 27 K/mm3 150-450 Results called to [id number] by V.LAB.ISRA 11/14/18 0604Critical results verified and read back by Nurse? Y MEAN PLATELET VOLUME (test code=MPV) TEST NOT PERFORMED fL 6.7-11.0 NEUTROPHIL % (test code=NT%) 44.2 % 39.0-69.0 IMMATURE GRANULOCYTE % (test code=IG%) 0.4 % 0.0-5.0 LYMPHOCYTE % (test code=LY%) 45.3 % 25.0-55.0 MONOCYTE % (test code=MO%) 7.6 % 0.0-10.0 EOSINOPHIL % (test code=EO%) 1.9 % 0.0-5.0 BASOPHIL % (test code=BA%) 0.6 % 0.0-1.0 NUCLEATED RBC % (test code=NRBC%) 0.0 % 0-0 NEUTROPHIL # (test code=NT#) 3.20 K/mm3 1.8-7.7 IMMATURE GRANULOCYTE # (test code=IG#) 0.03 x10 3/uL 0-0.03 LYMPHOCYTE # (test code=LY#) 3.28 K/mm3 1.0-5.0 MONOCYTE # (test code=MO#) 0.55 K/mm3 0-0.8 EOSINOPHIL # (test code=EO#) 0.14 K/mm3 0.0-0.5 BASOPHIL # (test code=BA#) 0.04 K/mm3 0.0-0.2 NUCLEATED RBC # (test code=NRBC#) 0.00 K/mm3 0.0-0.1 MANUAL DIFF REQUIRED (test code=MDIFF) NO, ONLY SCAN NEEDED DIFFERENTIAL [id number] 06:05:00* Test Item Value Reference Range Comments STAIN ACCEPTABILITY (test code=STN ACCEPTABLE) MORPHOLOGY COMMENT (test code=MOC) PLATELET ESTIMATE (test code=PLTEST) PLATELET MORPHOLOGY (test code=PLTMORPH) CBC W/AUTO [id number] 06:05:00* Test Item Value Reference Range Comments WHITE BLOOD CELL (test code=WBC) 7.2 K/mm3 4.5-12.5 RED BLOOD CELL (test code=RBC) 2.63 mill/mm3 3.7-5.2 HEMOGLOBIN (test code=HGB) 7.5 gram/dL 11.5-15.5 HEMATOCRIT (test code=HCT) 23.7 % 36.0-46.0 MEAN CELL VOLUME (test code=MCV) 90.1 fL 80-98 MEAN CELL HGB (test code=MCH) 28.5 picogram 27.0-33.0 MEAN CELL HGB CONCETRATION (test code=MCHC) 31.6 gram/dL 33.0-36.0 RED CELL DISTRIBUTION WIDTH (test code=RDW) 21.1 % 11.6-16.2 RED CELL DISTRIBUTION WIDTH SD (test code=RDW-SD) 66.3 fL 37.0-51.0 PLATELET COUNT (test code=PLT) 27 K/mm3 150-450 Results called to [id number] by MARIUM 11/14/18 0604Critical results verified and read back by Nurse? Y MEAN PLATELET VOLUME (test code=MPV) TEST NOT PERFORMED fL 6.7-11.0 NEUTROPHIL % (test code=NT%) 44.2 % 39.0-69.0 IMMATURE GRANULOCYTE % (test code=IG%) 0.4 % 0.0-5.0 LYMPHOCYTE % (test code=LY%) 45.3 % 25.0-55.0 MONOCYTE % (test code=MO%) 7.6 % 0.0-10.0 EOSINOPHIL % (test code=EO%) 1.9 % 0.0-5.0 BASOPHIL % (test code=BA%) 0.6 % 0.0-1.0 NUCLEATED RBC % (test code=NRBC%) 0.0 % 0-0 NEUTROPHIL # (test code=NT#) 3.20 K/mm3 1.8-7.7 IMMATURE GRANULOCYTE # (test code=IG#) 0.03 x10 3/uL 0-0.03 LYMPHOCYTE # (test code=LY#) 3.28 K/mm3 1.0-5.0 MONOCYTE # (test code=MO#) 0.55 K/mm3 0-0.8 EOSINOPHIL # (test code=EO#) 0.14 K/mm3 0.0-0.5 BASOPHIL # (test code=BA#) 0.04 K/mm3 0.0-0.2 NUCLEATED RBC # (test code=NRBC#) 0.00 K/mm3 0.0-0.1 MANUAL DIFF REQUIRED (test code=MDIFF) NO, ONLY SCAN NEEDED DIFFERENTIAL [id number] 06:05:00* Test Item Value Reference Range Comments STAIN ACCEPTABILITY (test code=STN ACCEPTABLE) CABOT RINGS (test code=CAB) MORPHOLOGY COMMENT (test code=MOC) PLATELET ESTIMATE (test code=PLTEST) PLATELET MORPHOLOGY (test code=PLTMORPH) BASIC METABOLIC [id number] 06:00:00* Test Item Value Reference Range Comments SODIUM (test code=NA) 148 mmol/L 136-145 POTASSIUM (test code=K) 3.1 mmol/L 3.5-5.1 CHLORIDE (test code=CL) 114.0 mmol/L 98-107 CARBON DIOXIDE (test code=CO2) mmol/L 21-32 ANION GAP (test code=GAP) 10-20 GLUCOSE (test code=GLU) mg/dL 74-106 BLOOD UREA NITROGEN (test code=BUN) mg/dL 7-18 GLOMERULAR FILTRATION RATE (test code=GFR) mL/min >=60 CREATININE (test code=CREAT) mg/dL 0.55-1.02 BUN/CREATININE RATIO (test code=BUN/CREA) 10-20 CALCIUM (test code=CA) mg/dL 8.5-10.1 CBC W/MANUAL [id number] 10:07:00* Test Item Value Reference Range Comments WHITE BLOOD CELL (test code=WBC) 9.4 K/mm3 4.5-12.5 RED BLOOD CELL (test code=RBC) 2.86 mill/mm3 3.7-5.2 HEMOGLOBIN (test code=HGB) 8.0 gram/dL 11.5-15.5 HEMATOCRIT (test code=HCT) 25.6 % 36.0-46.0 MEAN CELL VOLUME (test code=MCV) 89.5 fL 80-98 MEAN CELL HGB (test code=MCH) 28.0 picogram 27.0-33.0 MEAN CELL HGB CONCETRATION (test code=MCHC) 31.3 gram/dL 33.0-36.0 RED CELL DISTRIBUTION WIDTH (test code=RDW) 20.8 % 11.6-16.2 RED CELL DISTRIBUTION WIDTH SD (test code=RDW-SD) 63.2 fL 37.0-51.0 PLATELET COUNT (test code=PLT) 34 K/mm3 150-450 Results called to [id number] by V.LAB.CF2 11/13/18 0750Critical results verified and read back by Nurse? Y MEAN PLATELET VOLUME (test code=MPV) TEST NOT PERFORMED fL 6.7-11.0 Unable to determine due to platelet abnormality , please seethe platelet morphology. IMMATURE GRANULOCYTE % (test code=IG%) 0.5 % 0.0-5.0 NUCLEATED RBC % (test code=NRBC%) 0.0 % 0-0 NEUTROPHIL # (test code=NT#) 4.66 K/mm3 1.8-7.7 IMMATURE GRANULOCYTE # (test code=IG#) 0.05 x10 3/uL 0-0.03 LYMPHOCYTE # (test code=LY#) 3.86 K/mm3 1.0-5.0 MONOCYTE # (test code=MO#) 0.67 K/mm3 0-0.8 EOSINOPHIL # (test code=EO#) 0.09 K/mm3 0.0-0.5 BASOPHIL # (test code=BA#) 0.03 K/mm3 0.0-0.2 NUCLEATED RBC # (test code=NRBC#) 0.00 K/mm3 0.0-0.1 MANUAL DIFF REQUIRED (test code=MDIFF) YES STAIN ACCEPTABILITY (test code=STN ACCEPTABLE) STAIN ACCEPTABLE TOTAL CELLS COUNTED (test code=TCC) 114 #CELLS SEGMENTED NEUTROPHILS (test code=SEG) 77.2 % 39-69 BAND NEUTROPHIL (test code=BAND) 0 % 0-10 LYMPHOCYTE (test code=LYMPH) 18.4 % 25-55 REACTIVE LYMPH (test code=RELYMPH) 0 % MONOCYTE (test code=MON) 4.4 % 0-10 EOSINOPHIL (test code=EOS) 0 % 0.0-5.0 BASOPHIL (test code=BASO) 0 % 0-1.0 METAMYELOCYTE (test code=META) 0 % 0-0 MYELOCYTE (test code=MYELO) 0 % 0.0-0.0 PROMYELOCYTE (test code=PROM) 0 % 0-0 ANISOCYTOSIS (test code=ANISO) 1+ MACROCYTOSIS (test code=MACR) 1+ PLATELET ESTIMATE (test code=PLTEST) DECREASED PLATELET MORPHOLOGY (test code=PLTMORPH) NORMAL IMMATURE FORMS (test code=IMMAT) 0 % 0-0 CBC W/MANUAL [id number] 07:52:00* Test Item Value Reference Range Comments WHITE BLOOD CELL (test code=WBC) 9.4 K/mm3 4.5-12.5 RED BLOOD CELL (test code=RBC) 2.86 mill/mm3 3.7-5.2 HEMOGLOBIN (test code=HGB) 8.0 gram/dL 11.5-15.5 HEMATOCRIT (test code=HCT) 25.6 % 36.0-46.0 MEAN CELL VOLUME (test code=MCV) 89.5 fL 80-98 MEAN CELL HGB (test code=MCH) 28.0 picogram 27.0-33.0 MEAN CELL HGB CONCETRATION (test code=MCHC) 31.3 gram/dL 33.0-36.0 RED CELL DISTRIBUTION WIDTH (test code=RDW) 20.8 % 11.6-16.2 RED CELL DISTRIBUTION WIDTH SD (test code=RDW-SD) 63.2 fL 37.0-51.0 PLATELET COUNT (test code=PLT) 34 K/mm3 150-450 Results called to [id number] by [email or web address] 11/13/18 0750Critical results verified and read back by Nurse? Y MEAN PLATELET VOLUME (test code=MPV) TEST NOT PERFORMED fL 6.7-11.0 Unable to determine due to platelet abnormality , please seethe platelet morphology. IMMATURE GRANULOCYTE % (test code=IG%) 0.5 % 0.0-5.0 NUCLEATED RBC % (test code=NRBC%) 0.0 % 0-0 NEUTROPHIL # (test code=NT#) 4.66 K/mm3 1.8-7.7 IMMATURE GRANULOCYTE # (test code=IG#) 0.05 x10 3/uL 0-0.03 LYMPHOCYTE # (test code=LY#) 3.86 K/mm3 1.0-5.0 MONOCYTE # (test code=MO#) 0.67 K/mm3 0-0.8 EOSINOPHIL # (test code=EO#) 0.09 K/mm3 0.0-0.5 BASOPHIL # (test code=BA#) 0.03 K/mm3 0.0-0.2 NUCLEATED RBC # (test code=NRBC#) 0.00 K/mm3 0.0-0.1 MANUAL DIFF REQUIRED (test code=MDIFF) YES STAIN ACCEPTABILITY (test code=STN ACCEPTABLE) TOTAL CELLS COUNTED (test code=TCC) #CELLS SEGMENTED NEUTROPHILS (test code=SEG) % 39-69 LYMPHOCYTE (test code=LYMPH) % 25-55 MONOCYTE (test code=MON) % 0-10 EOSINOPHIL (test code=EOS) % 0.0-5.0 CABOT RINGS (test code=CAB) MORPHOLOGY COMMENT (test code=MOC) PLATELET ESTIMATE (test code=PLTEST) PLATELET MORPHOLOGY (test code=PLTMORPH) CBC W/MANUAL [id number] 07:52:00* Test Item Value Reference Range Comments WHITE BLOOD CELL (test code=WBC) 9.4 K/mm3 4.5-12.5 RED BLOOD CELL (test code=RBC) 2.86 mill/mm3 3.7-5.2 HEMOGLOBIN (test code=HGB) 8.0 gram/dL 11.5-15.5 HEMATOCRIT (test code=HCT) 25.6 % 36.0-46.0 MEAN CELL VOLUME (test code=MCV) 89.5 fL 80-98 MEAN CELL HGB (test code=MCH) 28.0 picogram 27.0-33.0 MEAN CELL HGB CONCETRATION (test code=MCHC) 31.3 gram/dL 33.0-36.0 RED CELL DISTRIBUTION WIDTH (test code=RDW) 20.8 % 11.6-16.2 RED CELL DISTRIBUTION WIDTH SD (test code=RDW-SD) 63.2 fL 37.0-51.0 PLATELET COUNT (test code=PLT) 34 K/mm3 150-450 Results called to [id number] by LEN2 11/13/18 0750Critical results verified and read back by Nurse? Y MEAN PLATELET VOLUME (test code=MPV) TEST NOT PERFORMED fL 6.7-11.0 Unable to determine due to platelet abnormality , please seethe platelet morphology. IMMATURE GRANULOCYTE % (test code=IG%) 0.5 % 0.0-5.0 NUCLEATED RBC % (test code=NRBC%) 0.0 % 0-0 NEUTROPHIL # (test code=NT#) 4.66 K/mm3 1.8-7.7 IMMATURE GRANULOCYTE # (test code=IG#) 0.05 x10 3/uL 0-0.03 LYMPHOCYTE # (test code=LY#) 3.86 K/mm3 1.0-5.0 MONOCYTE # (test code=MO#) 0.67 K/mm3 0-0.8 EOSINOPHIL # (test code=EO#) 0.09 K/mm3 0.0-0.5 BASOPHIL # (test code=BA#) 0.03 K/mm3 0.0-0.2 NUCLEATED RBC # (test code=NRBC#) 0.00 K/mm3 0.0-0.1 MANUAL DIFF REQUIRED (test code=MDIFF) YES STAIN ACCEPTABILITY (test code=STN ACCEPTABLE) TOTAL CELLS COUNTED (test code=TCC) #CELLS SEGMENTED NEUTROPHILS (test code=SEG) % 39-69 LYMPHOCYTE (test code=LYMPH) % 25-55 MONOCYTE (test code=MON) % 0-10 EOSINOPHIL (test code=EOS) % 0.0-5.0 CABOT RINGS (test code=CAB) MORPHOLOGY COMMENT (test code=MOC) PLATELET ESTIMATE (test code=PLTEST) PLATELET MORPHOLOGY (test code=PLTMORPH) CBC W/MANUAL [id number] 07:52:00* Test Item Value Reference Range Comments WHITE BLOOD CELL (test code=WBC) 9.4 K/mm3 4.5-12.5 RED BLOOD CELL (test code=RBC) 2.86 mill/mm3 3.7-5.2 HEMOGLOBIN (test code=HGB) 8.0 gram/dL 11.5-15.5 HEMATOCRIT (test code=HCT) 25.6 % 36.0-46.0 MEAN CELL VOLUME (test code=MCV) 89.5 fL 80-98 MEAN CELL HGB (test code=MCH) 28.0 picogram 27.0-33.0 MEAN CELL HGB CONCETRATION (test code=MCHC) 31.3 gram/dL 33.0-36.0 RED CELL DISTRIBUTION WIDTH (test code=RDW) 20.8 % 11.6-16.2 RED CELL DISTRIBUTION WIDTH SD (test code=RDW-SD) 63.2 fL 37.0-51.0 PLATELET COUNT (test code=PLT) 34 K/mm3 150-450 Results called to [id number] by MELISSA.CF2 11/13/18 0750Critical results verified and read back by Nurse? Y MEAN PLATELET VOLUME (test code=MPV) TEST NOT PERFORMED fL 6.7-11.0 Unable to determine due to platelet abnormality , please seethe platelet morphology. IMMATURE GRANULOCYTE % (test code=IG%) 0.5 % 0.0-5.0 NUCLEATED RBC % (test code=NRBC%) 0.0 % 0-0 NEUTROPHIL # (test code=NT#) 4.66 K/mm3 1.8-7.7 IMMATURE GRANULOCYTE # (test code=IG#) 0.05 x10 3/uL 0-0.03 LYMPHOCYTE # (test code=LY#) 3.86 K/mm3 1.0-5.0 MONOCYTE # (test code=MO#) 0.67 K/mm3 0-0.8 EOSINOPHIL # (test code=EO#) 0.09 K/mm3 0.0-0.5 BASOPHIL # (test code=BA#) 0.03 K/mm3 0.0-0.2 NUCLEATED RBC # (test code=NRBC#) 0.00 K/mm3 0.0-0.1 MANUAL DIFF REQUIRED (test code=MDIFF) YES STAIN ACCEPTABILITY (test code=STN ACCEPTABLE) TOTAL CELLS COUNTED (test code=TCC) #CELLS SEGMENTED NEUTROPHILS (test code=SEG) % 39-69 LYMPHOCYTE (test code=LYMPH) % 25-55 MONOCYTE (test code=MON) % 0-10 EOSINOPHIL (test code=EOS) % 0.0-5.0 MORPHOLOGY COMMENT (test code=MOC) PLATELET ESTIMATE (test code=PLTEST) PLATELET MORPHOLOGY (test code=PLTMORPH) CBC W/MANUAL [id number] 07:52:00* Test Item Value Reference Range Comments WHITE BLOOD CELL (test code=WBC) 9.4 K/mm3 4.5-12.5 RED BLOOD CELL (test code=RBC) 2.86 mill/mm3 3.7-5.2 HEMOGLOBIN (test code=HGB) 8.0 gram/dL 11.5-15.5 HEMATOCRIT (test code=HCT) 25.6 % 36.0-46.0 MEAN CELL VOLUME (test code=MCV) 89.5 fL 80-98 MEAN CELL HGB (test code=MCH) 28.0 picogram 27.0-33.0 MEAN CELL HGB CONCETRATION (test code=MCHC) 31.3 gram/dL 33.0-36.0 RED CELL DISTRIBUTION WIDTH (test code=RDW) 20.8 % 11.6-16.2 RED CELL DISTRIBUTION WIDTH SD (test code=RDW-SD) 63.2 fL 37.0-51.0 PLATELET COUNT (test code=PLT) 34 K/mm3 150-450 Results called to [id number] by V.[email or web address] 11/13/18 0750Critical results verified and read back by Nurse? Y MEAN PLATELET VOLUME (test code=MPV) TEST NOT PERFORMED fL 6.7-11.0 Unable to determine due to platelet abnormality , please seethe platelet morphology. IMMATURE GRANULOCYTE % (test code=IG%) 0.5 % 0.0-5.0 NUCLEATED RBC % (test code=NRBC%) 0.0 % 0-0 NEUTROPHIL # (test code=NT#) 4.66 K/mm3 1.8-7.7 IMMATURE GRANULOCYTE # (test code=IG#) 0.05 x10 3/uL 0-0.03 LYMPHOCYTE # (test code=LY#) 3.86 K/mm3 1.0-5.0 MONOCYTE # (test code=MO#) 0.67 K/mm3 0-0.8 EOSINOPHIL # (test code=EO#) 0.09 K/mm3 0.0-0.5 BASOPHIL # (test code=BA#) 0.03 K/mm3 0.0-0.2 NUCLEATED RBC # (test code=NRBC#) 0.00 K/mm3 0.0-0.1 MANUAL DIFF REQUIRED (test code=MDIFF) YES STAIN ACCEPTABILITY (test code=STN ACCEPTABLE) TOTAL CELLS COUNTED (test code=TCC) #CELLS SEGMENTED NEUTROPHILS (test code=SEG) % 39-69 LYMPHOCYTE (test code=LYMPH) % 25-55 MONOCYTE (test code=MON) % 0-10 MORPHOLOGY COMMENT (test code=MOC) PLATELET ESTIMATE (test code=PLTEST) PLATELET MORPHOLOGY (test code=PLTMORPH) CBC W/MANUAL [id number] 07:52:00* Test Item Value Reference Range Comments WHITE BLOOD CELL (test code=WBC) 9.4 K/mm3 4.5-12.5 RED BLOOD CELL (test code=RBC) 2.86 mill/mm3 3.7-5.2 HEMOGLOBIN (test code=HGB) 8.0 gram/dL 11.5-15.5 HEMATOCRIT (test code=HCT) 25.6 % 36.0-46.0 MEAN CELL VOLUME (test code=MCV) 89.5 fL 80-98 MEAN CELL HGB (test code=MCH) 28.0 picogram 27.0-33.0 MEAN CELL HGB CONCETRATION (test code=MCHC) 31.3 gram/dL 33.0-36.0 RED CELL DISTRIBUTION WIDTH (test code=RDW) 20.8 % 11.6-16.2 RED CELL DISTRIBUTION WIDTH SD (test code=RDW-SD) 63.2 fL 37.0-51.0 PLATELET COUNT (test code=PLT) 34 K/mm3 150-450 Results called to [id number] by [email or web address] 11/13/18 0750Critical results verified and read back by Nurse? Y MEAN PLATELET VOLUME (test code=MPV) TEST NOT PERFORMED fL 6.7-11.0 Unable to determine due to platelet abnormality , please seethe platelet morphology. IMMATURE GRANULOCYTE % (test code=IG%) 0.5 % 0.0-5.0 NUCLEATED RBC % (test code=NRBC%) 0.0 % 0-0 NEUTROPHIL # (test code=NT#) 4.66 K/mm3 1.8-7.7 IMMATURE GRANULOCYTE # (test code=IG#) 0.05 x10 3/uL 0-0.03 LYMPHOCYTE # (test code=LY#) 3.86 K/mm3 1.0-5.0 MONOCYTE # (test code=MO#) 0.67 K/mm3 0-0.8 EOSINOPHIL # (test code=EO#) 0.09 K/mm3 0.0-0.5 BASOPHIL # (test code=BA#) 0.03 K/mm3 0.0-0.2 NUCLEATED RBC # (test code=NRBC#) 0.00 K/mm3 0.0-0.1 MANUAL DIFF REQUIRED (test code=MDIFF) YES STAIN ACCEPTABILITY (test code=STN ACCEPTABLE) TOTAL CELLS COUNTED (test code=TCC) #CELLS SEGMENTED NEUTROPHILS (test code=SEG) % 39-69 LYMPHOCYTE (test code=LYMPH) % 25-55 MONOCYTE (test code=MON) % 0-10 EOSINOPHIL (test code=EOS) % 0.0-5.0 CABOT RINGS (test code=CAB) MORPHOLOGY COMMENT (test code=MOC) PLATELET ESTIMATE (test code=PLTEST) PLATELET MORPHOLOGY (test code=PLTMORPH) BASIC METABOLIC [id number] 07:46:00* Test Item Value Reference Range Comments SODIUM (test code=NA) 146 mmol/L 136-145 POTASSIUM (test code=K) 2.9 mmol/L 3.5-5.1 Results called to [id number] by ENMA 11/13/18 0745Critical results verified and read back by Nurse? Y CHLORIDE (test code=CL) 111.0 mmol/L 98-107 CARBON DIOXIDE (test code=CO2) 21.0 mmol/L 21-32 ANION GAP (test code=GAP) 16.9 10-20 GLUCOSE (test code=GLU) 129 mg/dL 74-106 BLOOD UREA NITROGEN (test code=BUN) 66 mg/dL 7-18 GLOMERULAR FILTRATION RATE (test code=GFR) 18 mL/min >=60 Estimated GFR by using Modified MDRD formula.Chronic kidney disease is defined as either kidney damageor GFR <60 mL/min/1.73 m2 for >3 months. CREATININE (test code=CREAT) 2.80 mg/dL 0.55-1.02 Note change in reference range due to change in reagent. BUN/CREATININE RATIO (test code=BUN/CREA) 23.6 10-20 CALCIUM (test code=CA) 8.3 mg/dL 8.5-10.1 [id number] 07:46:00* Test Item Value Reference Range Comments MAGNESIUM (test code=MAG) 2.2 mg/dL 1.8-2.4 CBC W/MANUAL [id number] 20:48:00* Test Item Value Reference Range Comments WHITE BLOOD CELL (test code=WBC) 11.8 K/mm3 4.5-12.5 RED BLOOD CELL (test code=RBC) 3.25 mill/mm3 3.7-5.2 HEMOGLOBIN (test code=HGB) 9.0 gram/dL 11.5-15.5 HEMATOCRIT (test code=HCT) 29.0 % 36.0-46.0 MEAN CELL VOLUME (test code=MCV) 89.2 fL 80-98 MEAN CELL HGB (test code=MCH) 27.7 picogram 27.0-33.0 MEAN CELL HGB CONCETRATION (test code=MCHC) 31.0 gram/dL 33.0-36.0 RED CELL DISTRIBUTION WIDTH (test code=RDW) 20.4 % 11.6-16.2 RED CELL DISTRIBUTION WIDTH SD (test code=RDW-SD) 63.6 fL 37.0-51.0 PLATELET COUNT (test code=PLT) 37 K/mm3 150-450 Results called to [id number] by SHAKEEL 11/12/18 2009Critical results verified and read back by Nurse? Y MEAN PLATELET VOLUME (test code=MPV) TEST NOT PERFORMED fL 6.7-11.0 IMMATURE GRANULOCYTE % (test code=IG%) 0.4 % 0.0-5.0 NUCLEATED RBC % (test code=NRBC%) 0.0 % 0-0 NEUTROPHIL # (test code=NT#) 5.69 K/mm3 1.8-7.7 IMMATURE GRANULOCYTE # (test code=IG#) 0.05 x10 3/uL 0-0.03 LYMPHOCYTE # (test code=LY#) 5.03 K/mm3 1.0-5.0 MONOCYTE # (test code=MO#) 0.79 K/mm3 0-0.8 EOSINOPHIL # (test code=EO#) 0.16 K/mm3 0.0-0.5 BASOPHIL # (test code=BA#) 0.05 K/mm3 0.0-0.2 NUCLEATED RBC # (test code=NRBC#) 0.00 K/mm3 0.0-0.1 MANUAL DIFF REQUIRED (test code=MDIFF) YES STAIN ACCEPTABILITY (test code=STN ACCEPTABLE) STAIN ACCEPTABLE TOTAL CELLS COUNTED (test code=TCC) 115 #CELLS SEGMENTED NEUTROPHILS (test code=SEG) 65.2 % 39-69 BAND NEUTROPHIL (test code=BAND) 0.9 % 0-10 LYMPHOCYTE (test code=LYMPH) 27.8 % 25-55 REACTIVE LYMPH (test code=RELYMPH) 2.6 % MONOCYTE (test code=MON) 3.5 % 0-10 EOSINOPHIL (test code=EOS) 0 % 0.0-5.0 BASOPHIL (test code=BASO) 0 % 0-1.0 METAMYELOCYTE (test code=META) 0 % 0-0 MYELOCYTE (test code=MYELO) 0 % 0.0-0.0 PROMYELOCYTE (test code=PROM) 0 % 0-0 POLYCHROMASIA (test code=POLC) 1+ HYPOCHROMIA (test code=HYPO) 2+ ANISOCYTOSIS (test code=ANISO) 2+ MICROCYTOSIS (test code=MICR) 1+ PLATELET ESTIMATE (test code=PLTEST) DECREASED PLATELET MORPHOLOGY (test code=PLTMORPH) NORMAL IMMATURE FORMS (test code=IMMAT) 0 % 0-0 PT EARNEST, SABINE ALBERTO VWilliamsLAB. 11/12/18 1543BASIC METABOLIC [id number] 20:29:00* Test Item Value Reference Range Comments SODIUM (test code=NA) 144 mmol/L 136-145 POTASSIUM (test code=K) 3.3 mmol/L 3.5-5.1 CHLORIDE (test code=CL) 109.0 mmol/L 98-107 CARBON DIOXIDE (test code=CO2) 21.0 mmol/L 21-32 ANION GAP (test code=GAP) 17.3 10-20 GLUCOSE (test code=GLU) 142 mg/dL 74-106 BLOOD UREA NITROGEN (test code=BUN) 65 mg/dL 7-18 GLOMERULAR FILTRATION RATE (test code=GFR) 18 mL/min >=60 Estimated GFR by using Modified MDRD formula.Chronic kidney disease is defined as either kidney damageor GFR <60 mL/min/1.73 m2 for >3 months. CREATININE (test code=CREAT) 2.70 mg/dL 0.55-1.02 Note change in reference range due to change in reagent. BUN/CREATININE RATIO (test code=BUN/CREA) 24.1 10-20 CALCIUM (test code=CA) 8.3 mg/dL 8.5-10.1 PT CONFUSED, SABINE TORRES.KW 11/12/18 1542PT HARDSTICK.NOTIFIED SABINE SALCEDO.JB1 11/12/18 [id number] 20:23:00* Test Item Value Reference Range Comments MAGNESIUM (test code=MAG) 2.0 mg/dL 1.8-2.4 PT CONFUSED, SABINE TORRES. 11/12/18 1544PT REFUSING SABINE [id number] 10/18 02/03 1014PT HARD STICK NOTIFIED SABINE BeltranV.LAB.SP3 11/12/18 0558BASI METABOLIC [id number] 20:21:00* Test Item Value Reference Range Comments SODIUM (test code=NA) 144 mmol/L 136-145 POTASSIUM (test code=K) 3.3 mmol/L 3.5-5.1 CHLORIDE (test code=CL) 109.0 mmol/L 98-107 CARBON DIOXIDE (test code=CO2) mmol/L 21-32 ANION GAP (test code=GAP) 10-20 GLUCOSE (test code=GLU) mg/dL 74-106 BLOOD UREA NITROGEN (test code=BUN) mg/dL 7-18 GLOMERULAR FILTRATION RATE (test code=GFR) mL/min >=60 CREATININE (test code=CREAT) mg/dL 0.55-1.02 BUN/CREATININE RATIO (test code=BUN/CREA) 10-20 CALCIUM (test code=CA) mg/dL 8.5-10.1 PT CONFUSED, SABINE BURKETTKW 11/12/18 1542PT HARDSTICK.NOTIFIED SABINE SALCEDO.JB1 11/12/18 1211CBC W/MANUAL [id number] 20:20:00* Test Item Value Reference Range Comments WHITE BLOOD CELL (test code=WBC) 11.8 K/mm3 4.5-12.5 RED BLOOD CELL (test code=RBC) 3.25 mill/mm3 3.7-5.2 HEMOGLOBIN (test code=HGB) 9.0 gram/dL 11.5-15.5 HEMATOCRIT (test code=HCT) 29.0 % 36.0-46.0 MEAN CELL VOLUME (test code=MCV) 89.2 fL 80-98 MEAN CELL HGB (test code=MCH) 27.7 picogram 27.0-33.0 MEAN CELL HGB CONCETRATION (test code=MCHC) 31.0 gram/dL 33.0-36.0 RED CELL DISTRIBUTION WIDTH (test code=RDW) 20.4 % 11.6-16.2 RED CELL DISTRIBUTION WIDTH SD (test code=RDW-SD) 63.6 fL 37.0-51.0 PLATELET COUNT (test code=PLT) 37 K/mm3 150-450 Results called to [id number] by SHAKEEL 11/12/18 2009Critical results verified and read back by Nurse? Y MEAN PLATELET VOLUME (test code=MPV) TEST NOT PERFORMED fL 6.7-11.0 IMMATURE GRANULOCYTE % (test code=IG%) 0.4 % 0.0-5.0 NUCLEATED RBC % (test code=NRBC%) 0.0 % 0-0 NEUTROPHIL # (test code=NT#) 5.69 K/mm3 1.8-7.7 IMMATURE GRANULOCYTE # (test code=IG#) 0.05 x10 3/uL 0-0.03 LYMPHOCYTE # (test code=LY#) 5.03 K/mm3 1.0-5.0 MONOCYTE # (test code=MO#) 0.79 K/mm3 0-0.8 EOSINOPHIL # (test code=EO#) 0.16 K/mm3 0.0-0.5 BASOPHIL # (test code=BA#) 0.05 K/mm3 0.0-0.2 NUCLEATED RBC # (test code=NRBC#) 0.00 K/mm3 0.0-0.1 MANUAL DIFF REQUIRED (test code=MDIFF) YES STAIN ACCEPTABILITY (test code=STN ACCEPTABLE) TOTAL CELLS COUNTED (test code=TCC) #CELLS SEGMENTED NEUTROPHILS (test code=SEG) % 39-69 LYMPHOCYTE (test code=LYMPH) % 25-55 MONOCYTE (test code=MON) % 0-10 MORPHOLOGY COMMENT (test code=MOC) PLATELET ESTIMATE (test code=PLTEST) PLATELET MORPHOLOGY (test code=PLTMORPH) PT EARNEST, RN DOLLY TayLABMOHIT 11/12/18 1543CBC W/MANUAL [id number] 20:11:00* Test Item Value Reference Range Comments WHITE BLOOD CELL (test code=WBC) 11.8 K/mm3 4.5-12.5 RED BLOOD CELL (test code=RBC) 3.25 mill/mm3 3.7-5.2 HEMOGLOBIN (test code=HGB) 9.0 gram/dL 11.5-15.5 HEMATOCRIT (test code=HCT) 29.0 % 36.0-46.0 MEAN CELL VOLUME (test code=MCV) 89.2 fL 80-98 MEAN CELL HGB (test code=MCH) 27.7 picogram 27.0-33.0 MEAN CELL HGB CONCETRATION (test code=MCHC) 31.0 gram/dL 33.0-36.0 RED CELL DISTRIBUTION WIDTH (test code=RDW) 20.4 % 11.6-16.2 RED CELL DISTRIBUTION WIDTH SD (test code=RDW-SD) 63.6 fL 37.0-51.0 PLATELET COUNT (test code=PLT) 37 K/mm3 150-450 Results called to by SHAKEEL 11/12/18 2009Critical results verified and read back by Nurse? Y MEAN PLATELET VOLUME (test code=MPV) TEST NOT PERFORMED fL 6.7-11.0 IMMATURE GRANULOCYTE % (test code=IG%) 0.4 % 0.0-5.0 NUCLEATED RBC % (test code=NRBC%) 0.0 % 0-0 NEUTROPHIL # (test code=NT#) 5.69 K/mm3 1.8-7.7 IMMATURE GRANULOCYTE # (test code=IG#) 0.05 x10 3/uL 0-0.03 LYMPHOCYTE # (test code=LY#) 5.03 K/mm3 1.0-5.0 MONOCYTE # (test code=MO#) 0.79 K/mm3 0-0.8 EOSINOPHIL # (test code=EO#) 0.16 K/mm3 0.0-0.5 BASOPHIL # (test code=BA#) 0.05 K/mm3 0.0-0.2 NUCLEATED RBC # (test code=NRBC#) 0.00 K/mm3 0.0-0.1 MANUAL DIFF REQUIRED (test code=MDIFF) YES STAIN ACCEPTABILITY (test code=STN ACCEPTABLE) TOTAL CELLS COUNTED (test code=TCC) #CELLS SEGMENTED NEUTROPHILS (test code=SEG) % 39-69 LYMPHOCYTE (test code=LYMPH) % 25-55 MONOCYTE (test code=MON) % 0-10 EOSINOPHIL (test code=EOS) % 0.0-5.0 CABOT RINGS (test code=CAB) MORPHOLOGY COMMENT (test code=MOC) PLATELET ESTIMATE (test code=PLTEST) PLATELET MORPHOLOGY (test code=PLTMORPH) PT EARNEST, RN DOLLY V.LAB.MARGO 11/12/18 1543CBC W/MANUAL [id number] 20:11:00* Test Item Value Reference Range Comments WHITE BLOOD CELL (test code=WBC) 11.8 K/mm3 4.5-12.5 RED BLOOD CELL (test code=RBC) 3.25 mill/mm3 3.7-5.2 HEMOGLOBIN (test code=HGB) 9.0 gram/dL 11.5-15.5 HEMATOCRIT (test code=HCT) 29.0 % 36.0-46.0 MEAN CELL VOLUME (test code=MCV) 89.2 fL 80-98 MEAN CELL HGB (test code=MCH) 27.7 picogram 27.0-33.0 MEAN CELL HGB CONCETRATION (test code=MCHC) 31.0 gram/dL 33.0-36.0 RED CELL DISTRIBUTION WIDTH (test code=RDW) 20.4 % 11.6-16.2 RED CELL DISTRIBUTION WIDTH SD (test code=RDW-SD) 63.6 fL 37.0-51.0 PLATELET COUNT (test code=PLT) 37 K/mm3 150-450 Results called to by V.LABKATHI 11/12/18 2009Critical results verified and read back by Nurse? Y MEAN PLATELET VOLUME (test code=MPV) TEST NOT PERFORMED fL 6.7-11.0 IMMATURE GRANULOCYTE % (test code=IG%) 0.4 % 0.0-5.0 NUCLEATED RBC % (test code=NRBC%) 0.0 % 0-0 NEUTROPHIL # (test code=NT#) 5.69 K/mm3 1.8-7.7 IMMATURE GRANULOCYTE # (test code=IG#) 0.05 x10 3/uL 0-0.03 LYMPHOCYTE # (test code=LY#) 5.03 K/mm3 1.0-5.0 MONOCYTE # (test code=MO#) 0.79 K/mm3 0-0.8 EOSINOPHIL # (test code=EO#) 0.16 K/mm3 0.0-0.5 BASOPHIL # (test code=BA#) 0.05 K/mm3 0.0-0.2 NUCLEATED RBC # (test code=NRBC#) 0.00 K/mm3 0.0-0.1 MANUAL DIFF REQUIRED (test code=MDIFF) YES STAIN ACCEPTABILITY (test code=STN ACCEPTABLE) TOTAL CELLS COUNTED (test code=TCC) #CELLS SEGMENTED NEUTROPHILS (test code=SEG) % 39-69 LYMPHOCYTE (test code=LYMPH) % 25-55 MONOCYTE (test code=MON) % 0-10 EOSINOPHIL (test code=EOS) % 0.0-5.0 CABOT RINGS (test code=CAB) MORPHOLOGY COMMENT (test code=MOC) PLATELET ESTIMATE (test code=PLTEST) PLATELET MORPHOLOGY (test code=PLTMORPH) PT CONFUSED, RN DOLLY TayLAB. 11/12/18 1543CBC W/MANUAL [id number] 20:11:00* Test Item Value Reference Range Comments WHITE BLOOD CELL (test code=WBC) 11.8 K/mm3 4.5-12.5 RED BLOOD CELL (test code=RBC) 3.25 mill/mm3 3.7-5.2 HEMOGLOBIN (test code=HGB) 9.0 gram/dL 11.5-15.5 HEMATOCRIT (test code=HCT) 29.0 % 36.0-46.0 MEAN CELL VOLUME (test code=MCV) 89.2 fL 80-98 MEAN CELL HGB (test code=MCH) 27.7 picogram 27.0-33.0 MEAN CELL HGB CONCETRATION (test code=MCHC) 31.0 gram/dL 33.0-36.0 RED CELL DISTRIBUTION WIDTH (test code=RDW) 20.4 % 11.6-16.2 RED CELL DISTRIBUTION WIDTH SD (test code=RDW-SD) 63.6 fL 37.0-51.0 PLATELET COUNT (test code=PLT) 37 K/mm3 150-450 Results called to by SHAKEEL 11/12/18 2009Critical results verified and read back by Nurse? Y MEAN PLATELET VOLUME (test code=MPV) TEST NOT PERFORMED fL 6.7-11.0 IMMATURE GRANULOCYTE % (test code=IG%) 0.4 % 0.0-5.0 NUCLEATED RBC % (test code=NRBC%) 0.0 % 0-0 NEUTROPHIL # (test code=NT#) 5.69 K/mm3 1.8-7.7 IMMATURE GRANULOCYTE # (test code=IG#) 0.05 x10 3/uL 0-0.03 LYMPHOCYTE # (test code=LY#) 5.03 K/mm3 1.0-5.0 MONOCYTE # (test code=MO#) 0.79 K/mm3 0-0.8 EOSINOPHIL # (test code=EO#) 0.16 K/mm3 0.0-0.5 BASOPHIL # (test code=BA#) 0.05 K/mm3 0.0-0.2 NUCLEATED RBC # (test code=NRBC#) 0.00 K/mm3 0.0-0.1 MANUAL DIFF REQUIRED (test code=MDIFF) YES STAIN ACCEPTABILITY (test code=STN ACCEPTABLE) TOTAL CELLS COUNTED (test code=TCC) #CELLS SEGMENTED NEUTROPHILS (test code=SEG) % 39-69 LYMPHOCYTE (test code=LYMPH) % 25-55 MONOCYTE (test code=MON) % 0-10 EOSINOPHIL (test code=EOS) % 0.0-5.0 MORPHOLOGY COMMENT (test code=MOC) PLATELET ESTIMATE (test code=PLTEST) PLATELET MORPHOLOGY (test code=PLTMORPH) PT EARNEST, RN DOLLY TayLABMOHIT 11/12/18 1543CBC W/MANUAL [id number] 20:11:00* Test Item Value Reference Range Comments WHITE BLOOD CELL (test code=WBC) 11.8 K/mm3 4.5-12.5 RED BLOOD CELL (test code=RBC) 3.25 mill/mm3 3.7-5.2 HEMOGLOBIN (test code=HGB) 9.0 gram/dL 11.5-15.5 HEMATOCRIT (test code=HCT) 29.0 % 36.0-46.0 MEAN CELL VOLUME (test code=MCV) 89.2 fL 80-98 MEAN CELL HGB (test code=MCH) 27.7 picogram 27.0-33.0 MEAN CELL HGB CONCETRATION (test code=MCHC) 31.0 gram/dL 33.0-36.0 RED CELL DISTRIBUTION WIDTH (test code=RDW) 20.4 % 11.6-16.2 RED CELL DISTRIBUTION WIDTH SD (test code=RDW-SD) 63.6 fL 37.0-51.0 PLATELET COUNT (test code=PLT) 37 K/mm3 150-450 Results called to by V.LAB.SZ 11/12/18 2009Critical results verified and read back by Nurse? Y MEAN PLATELET VOLUME (test code=MPV) TEST NOT PERFORMED fL 6.7-11.0 IMMATURE GRANULOCYTE % (test code=IG%) 0.4 % 0.0-5.0 NUCLEATED RBC % (test code=NRBC%) 0.0 % 0-0 NEUTROPHIL # (test code=NT#) 5.69 K/mm3 1.8-7.7 IMMATURE GRANULOCYTE # (test code=IG#) 0.05 x10 3/uL 0-0.03 LYMPHOCYTE # (test code=LY#) 5.03 K/mm3 1.0-5.0 MONOCYTE # (test code=MO#) 0.79 K/mm3 0-0.8 EOSINOPHIL # (test code=EO#) 0.16 K/mm3 0.0-0.5 BASOPHIL # (test code=BA#) 0.05 K/mm3 0.0-0.2 NUCLEATED RBC # (test code=NRBC#) 0.00 K/mm3 0.0-0.1 MANUAL DIFF REQUIRED (test code=MDIFF) YES STAIN ACCEPTABILITY (test code=STN ACCEPTABLE) TOTAL CELLS COUNTED (test code=TCC) #CELLS SEGMENTED NEUTROPHILS (test code=SEG) % 39-69 LYMPHOCYTE (test code=LYMPH) % 25-55 MONOCYTE (test code=MON) % 0-10 MORPHOLOGY COMMENT (test code=MOC) PLATELET ESTIMATE (test code=PLTEST) PLATELET MORPHOLOGY (test code=PLTMORPH) PT CONFUSED, RN DOLLY Ocasio.LAB.MARGO 11/12/18 1543CBC W/MANUAL [id number] 20:11:00* Test Item Value Reference Range Comments WHITE BLOOD CELL (test code=WBC) 11.8 K/mm3 4.5-12.5 RED BLOOD CELL (test code=RBC) 3.25 mill/mm3 3.7-5.2 HEMOGLOBIN (test code=HGB) 9.0 gram/dL 11.5-15.5 HEMATOCRIT (test code=HCT) 29.0 % 36.0-46.0 MEAN CELL VOLUME (test code=MCV) 89.2 fL 80-98 MEAN CELL HGB (test code=MCH) 27.7 picogram 27.0-33.0 MEAN CELL HGB CONCETRATION (test code=MCHC) 31.0 gram/dL 33.0-36.0 RED CELL DISTRIBUTION WIDTH (test code=RDW) 20.4 % 11.6-16.2 RED CELL DISTRIBUTION WIDTH SD (test code=RDW-SD) 63.6 fL 37.0-51.0 PLATELET COUNT (test code=PLT) 37 K/mm3 150-450 Results called to by SHAKEEL 11/12/18 2009Critical results verified and read back by Nurse? Y MEAN PLATELET VOLUME (test code=MPV) TEST NOT PERFORMED fL 6.7-11.0 IMMATURE GRANULOCYTE % (test code=IG%) 0.4 % 0.0-5.0 NUCLEATED RBC % (test code=NRBC%) 0.0 % 0-0 NEUTROPHIL # (test code=NT#) 5.69 K/mm3 1.8-7.7 IMMATURE GRANULOCYTE # (test code=IG#) 0.05 x10 3/uL 0-0.03 LYMPHOCYTE # (test code=LY#) 5.03 K/mm3 1.0-5.0 MONOCYTE # (test code=MO#) 0.79 K/mm3 0-0.8 EOSINOPHIL # (test code=EO#) 0.16 K/mm3 0.0-0.5 BASOPHIL # (test code=BA#) 0.05 K/mm3 0.0-0.2 NUCLEATED RBC # (test code=NRBC#) 0.00 K/mm3 0.0-0.1 MANUAL DIFF REQUIRED (test code=MDIFF) YES STAIN ACCEPTABILITY (test code=STN ACCEPTABLE) TOTAL CELLS COUNTED (test code=TCC) #CELLS SEGMENTED NEUTROPHILS (test code=SEG) % 39-69 LYMPHOCYTE (test code=LYMPH) % 25-55 MONOCYTE (test code=MON) % 0-10 EOSINOPHIL (test code=EOS) % 0.0-5.0 CABOT RINGS (test code=CAB) MORPHOLOGY COMMENT (test code=MOC) PLATELET ESTIMATE (test code=PLTEST) PLATELET MORPHOLOGY (test code=PLTMORPH) PT CONFUSED, RN DOLLY TORRES. 11/12/18 1543COMPREHENSIVE METABOLIC PANEL 2018-11-11 06:42:00* Test Item Value Reference Range Comments SODIUM (test code=NA) 143 mmol/L 136-145 POTASSIUM (test code=K) 3.7 mmol/L 3.5-5.1 CHLORIDE (test code=CL) 110.0 mmol/L 98-107 CARBON DIOXIDE (test code=CO2) 20.0 mmol/L 21-32 ANION GAP (test code=GAP) 16.7 10-20 GLUCOSE (test code=GLU) 107 mg/dL 74-106 BLOOD UREA NITROGEN (test code=BUN) 63 mg/dL 7-18 GLOMERULAR FILTRATION RATE (test code=GFR) 20 mL/min >=60 Estimated GFR by using Modified MDRD formula.Chronic kidney disease is defined as either kidney damageor GFR <60 mL/min/1.73 m2 for >3 months. CREATININE (test code=CREAT) 2.50 mg/dL 0.55-1.02 Note change in reference range due to change in reagent. BUN/CREATININE RATIO (test code=BUN/CREA) 25.2 10-20 TOTAL PROTEIN (test code=PROT) 5.8 gram/dL 6.4-8.2 ALBUMIN (test code=ALB) 1.4 g/dL 3.4-5.0 GLOBULIN (test code=GLOB) 4.4 gram/dL 2.7-4.2 ALBUMIN/GLOBULIN RATIO (test code=A/G) 0.3 0.75-1.50 CALCIUM (test code=CA) 8.5 mg/dL 8.5-10.1 BILIRUBIN TOTAL (test code=BILT) 1.40 mg/dL 0.0-1.0 SGOT/AST (test code=AST) 30 IUnit/L 15-37 SGPT/ALT (test code=ALT) 28 IUnit/L 12-78 ALKALINE PHOSPHATASE TOTAL (test code=ALKP) 337 IUnit/L 45-117 Note change in reference range due to change in reagent. [id number] 06:42:00* Test Item Value Reference Range Comments MAGNESIUM (test code=MAG) 2.1 mg/dL 1.8-2.4 COMPREHENSIVE METABOLIC [id number] 06:26:00* Test Item Value Reference Range Comments SODIUM (test code=NA) 143 mmol/L 136-145 POTASSIUM (test code=K) 3.7 mmol/L 3.5-5.1 CHLORIDE (test code=CL) 110.0 mmol/L 98-107 CARBON DIOXIDE (test code=CO2) mmol/L 21-32 ANION GAP (test code=GAP) 10-20 GLUCOSE (test code=GLU) mg/dL 74-106 BLOOD UREA NITROGEN (test code=BUN) mg/dL 7-18 GLOMERULAR FILTRATION RATE (test code=GFR) mL/min >=60 CREATININE (test code=CREAT) mg/dL 0.55-1.02 BUN/CREATININE RATIO (test code=BUN/CREA) 10-20 TOTAL PROTEIN (test code=PROT) gram/dL 6.4-8.2 ALBUMIN (test code=ALB) g/dL 3.4-5.0 GLOBULIN (test code=GLOB) gram/dL 2.7-4.2 ALBUMIN/GLOBULIN RATIO (test code=A/G) 0.75-1.50 CALCIUM (test code=CA) mg/dL 8.5-10.1 BILIRUBIN TOTAL (test code=BILT) mg/dL 0.0-1.0 SGOT/AST (test code=AST) IUnit/L 15-37 SGPT/ALT (test code=ALT) IUnit/L 12-78 ALKALINE PHOSPHATASE TOTAL (test code=ALKP) IUnit/L 45-117 [id number] 06:26:00* Test Item Value Reference Range Comments MAGNESIUM (test code=MAG) mg/dL 1.8-2.4 BASIC METABOLIC [id number] 05:32:00* Test Item Value Reference Range Comments SODIUM (test code=NA) 141 mmol/L 136-145 POTASSIUM (test code=K) 3.0 mmol/L 3.5-5.1 CHLORIDE (test code=CL) 109.0 mmol/L 98-107 CARBON DIOXIDE (test code=CO2) 21.0 mmol/L 21-32 ANION GAP (test code=GAP) 14.0 10-20 GLUCOSE (test code=GLU) 119 mg/dL 74-106 BLOOD UREA NITROGEN (test code=BUN) 63 mg/dL 7-18 GLOMERULAR FILTRATION RATE (test code=GFR) 20 mL/min >=60 Estimated GFR by using Modified MDRD formula.Chronic kidney disease is defined as either kidney damageor GFR <60 mL/min/1.73 m2 for >3 months. CREATININE (test code=CREAT) 2.50 mg/dL 0.55-1.02 Note change in reference range due to change in reagent. BUN/CREATININE RATIO (test code=BUN/CREA) 25.2 10-20 CALCIUM (test code=CA) 8.3 mg/dL 8.5-10.1 [id number] 09:48:00* Test Item Value Reference Range Comments MAGNESIUM (test code=MAG) 1.9 mg/dL 1.8-2.4 CBC W/MANUAL [id number] 09:17:00* Test Item Value Reference Range Comments WHITE BLOOD CELL (test code=WBC) 11.3 K/mm3 4.5-12.5 RED BLOOD CELL (test code=RBC) 3.30 mill/mm3 3.7-5.2 HEMOGLOBIN (test code=HGB) 8.9 gram/dL 11.5-15.5 HEMATOCRIT (test code=HCT) 28.5 % 36.0-46.0 MEAN CELL VOLUME (test code=MCV) 86.4 fL 80-98 MEAN CELL HGB (test code=MCH) 27.0 picogram 27.0-33.0 MEAN CELL HGB CONCETRATION (test code=MCHC) 31.2 gram/dL 33.0-36.0 RED CELL DISTRIBUTION WIDTH (test code=RDW) 17.5 % 11.6-16.2 RED CELL DISTRIBUTION WIDTH SD (test code=RDW-SD) 49.3 fL 37.0-51.0 PLATELET COUNT (test code=PLT) 25 K/mm3 150-450 Results called to [id number] by MADELAINEKNKetan 11/09/18 0804Critical results verified and read back by Nurse? Y MEAN PLATELET VOLUME (test code=MPV) TEST NOT PERFORMED fL 6.7-11.0 IMMATURE GRANULOCYTE % (test code=IG%) 0.7 % 0.0-5.0 NUCLEATED RBC % (test code=NRBC%) 0.0 % 0-0 NEUTROPHIL # (test code=NT#) 5.37 K/mm3 1.8-7.7 IMMATURE GRANULOCYTE # (test code=IG#) 0.08 x10 3/uL 0-0.03 LYMPHOCYTE # (test code=LY#) 4.69 K/mm3 1.0-5.0 MONOCYTE # (test code=MO#) 1.06 K/mm3 0-0.8 EOSINOPHIL # (test code=EO#) 0.01 K/mm3 0.0-0.5 BASOPHIL # (test code=BA#) 0.05 K/mm3 0.0-0.2 NUCLEATED RBC # (test code=NRBC#) 0.00 K/mm3 0.0-0.1 MANUAL DIFF REQUIRED (test code=MDIFF) YES STAIN ACCEPTABILITY (test code=STN ACCEPTABLE) STAIN ACCEPTABLE TOTAL CELLS COUNTED (test code=TCC) 110 #CELLS SEGMENTED NEUTROPHILS (test code=SEG) 62.7 % 39-69 BAND NEUTROPHIL (test code=BAND) 0 % 0-10 LYMPHOCYTE (test code=LYMPH) 28.2 % 25-55 REACTIVE LYMPH (test code=RELYMPH) 0 % MONOCYTE (test code=MON) 6.4 % 0-10 EOSINOPHIL (test code=EOS) 0 % 0.0-5.0 BASOPHIL (test code=BASO) 2.7 % 0-1.0 METAMYELOCYTE (test code=META) 0 % 0-0 MYELOCYTE (test code=MYELO) 0 % 0.0-0.0 PROMYELOCYTE (test code=PROM) 0 % 0-0 POLYCHROMASIA (test code=POLC) 3+ POIKILOCYTOSIS (test code=POIK) 2+ ANISOCYTOSIS (test code=ANISO) 2+ MICROCYTOSIS (test code=MICR) 1+ MACROCYTOSIS (test code=MACR) 2+ JAYLA CELLS (test code=JAYLA) 1+ NONE PLATELET ESTIMATE (test code=PLTEST) DECREASED PLATELET MORPHOLOGY (test code=PLTMORPH) NORMAL IMMATURE FORMS (test code=IMMAT) 0 % BASIC METABOLIC [id number] 08:22:00* Test Item Value Reference Range Comments SODIUM (test code=NA) 143 mmol/L 136-145 POTASSIUM (test code=K) 2.9 mmol/L 3.5-5.1 Results called to [id number] by VMARK 11/09/18 0820Critical results verified and read back by Nurse? Y CHLORIDE (test code=CL) 111.0 mmol/L 98-107 CARBON DIOXIDE (test code=CO2) 19.0 mmol/L 21-32 ANION GAP (test code=GAP) 15.9 10-20 GLUCOSE (test code=GLU) 111 mg/dL 74-106 BLOOD UREA NITROGEN (test code=BUN) 57 mg/dL 7-18 GLOMERULAR FILTRATION RATE (test code=GFR) 19 mL/min >=60 Estimated GFR by using Modified MDRD formula.Chronic kidney disease is defined as either kidney damageor GFR <60 mL/min/1.73 m2 for >3 months. CREATININE (test code=CREAT) 2.60 mg/dL 0.55-1.02 Note change in reference range due to change in reagent. BUN/CREATININE RATIO (test code=BUN/CREA) 21.9 10-20 CALCIUM (test code=CA) 8.4 mg/dL 8.5-10.1 CBC W/MANUAL [id number] 08:08:00* Test Item Value Reference Range Comments WHITE BLOOD CELL (test code=WBC) 11.3 K/mm3 4.5-12.5 RED BLOOD CELL (test code=RBC) 3.30 mill/mm3 3.7-5.2 HEMOGLOBIN (test code=HGB) 8.9 gram/dL 11.5-15.5 HEMATOCRIT (test code=HCT) 28.5 % 36.0-46.0 MEAN CELL VOLUME (test code=MCV) 86.4 fL 80-98 MEAN CELL HGB (test code=MCH) 27.0 picogram 27.0-33.0 MEAN CELL HGB CONCETRATION (test code=MCHC) 31.2 gram/dL 33.0-36.0 RED CELL DISTRIBUTION WIDTH (test code=RDW) 17.5 % 11.6-16.2 RED CELL DISTRIBUTION WIDTH SD (test code=RDW-SD) 49.3 fL 37.0-51.0 PLATELET COUNT (test code=PLT) 25 K/mm3 150-450 Results called to [id number] by MADELAINEKNKetan 11/09/18 0804Critical results verified and read back by Nurse? Y MEAN PLATELET VOLUME (test code=MPV) TEST NOT PERFORMED fL 6.7-11.0 IMMATURE GRANULOCYTE % (test code=IG%) 0.7 % 0.0-5.0 NUCLEATED RBC % (test code=NRBC%) 0.0 % 0-0 NEUTROPHIL # (test code=NT#) 5.37 K/mm3 1.8-7.7 IMMATURE GRANULOCYTE # (test code=IG#) 0.08 x10 3/uL 0-0.03 LYMPHOCYTE # (test code=LY#) 4.69 K/mm3 1.0-5.0 MONOCYTE # (test code=MO#) 1.06 K/mm3 0-0.8 EOSINOPHIL # (test code=EO#) 0.01 K/mm3 0.0-0.5 BASOPHIL # (test code=BA#) 0.05 K/mm3 0.0-0.2 NUCLEATED RBC # (test code=NRBC#) 0.00 K/mm3 0.0-0.1 MANUAL DIFF REQUIRED (test code=MDIFF) YES STAIN ACCEPTABILITY (test code=STN ACCEPTABLE) TOTAL CELLS COUNTED (test code=TCC) #CELLS SEGMENTED NEUTROPHILS (test code=SEG) % 39-69 LYMPHOCYTE (test code=LYMPH) % 25-55 MONOCYTE (test code=MON) % 0-10 EOSINOPHIL (test code=EOS) % 0.0-5.0 CABOT RINGS (test code=CAB) MORPHOLOGY COMMENT (test code=MOC) PLATELET ESTIMATE (test code=PLTEST) PLATELET MORPHOLOGY (test code=PLTMORPH) CBC W/MANUAL [id number] 08:08:00* Test Item Value Reference Range Comments WHITE BLOOD CELL (test code=WBC) 11.3 K/mm3 4.5-12.5 RED BLOOD CELL (test code=RBC) 3.30 mill/mm3 3.7-5.2 HEMOGLOBIN (test code=HGB) 8.9 gram/dL 11.5-15.5 HEMATOCRIT (test code=HCT) 28.5 % 36.0-46.0 MEAN CELL VOLUME (test code=MCV) 86.4 fL 80-98 MEAN CELL HGB (test code=MCH) 27.0 picogram 27.0-33.0 MEAN CELL HGB CONCETRATION (test code=MCHC) 31.2 gram/dL 33.0-36.0 RED CELL DISTRIBUTION WIDTH (test code=RDW) 17.5 % 11.6-16.2 RED CELL DISTRIBUTION WIDTH SD (test code=RDW-SD) 49.3 fL 37.0-51.0 PLATELET COUNT (test code=PLT) 25 K/mm3 150-450 Results called to [id number] by MADELAINEKNKetan 11/09/18 0804Critical results verified and read back by Nurse? Y MEAN PLATELET VOLUME (test code=MPV) TEST NOT PERFORMED fL 6.7-11.0 IMMATURE GRANULOCYTE % (test code=IG%) 0.7 % 0.0-5.0 NUCLEATED RBC % (test code=NRBC%) 0.0 % 0-0 NEUTROPHIL # (test code=NT#) 5.37 K/mm3 1.8-7.7 IMMATURE GRANULOCYTE # (test code=IG#) 0.08 x10 3/uL 0-0.03 LYMPHOCYTE # (test code=LY#) 4.69 K/mm3 1.0-5.0 MONOCYTE # (test code=MO#) 1.06 K/mm3 0-0.8 EOSINOPHIL # (test code=EO#) 0.01 K/mm3 0.0-0.5 BASOPHIL # (test code=BA#) 0.05 K/mm3 0.0-0.2 NUCLEATED RBC # (test code=NRBC#) 0.00 K/mm3 0.0-0.1 MANUAL DIFF REQUIRED (test code=MDIFF) YES STAIN ACCEPTABILITY (test code=STN ACCEPTABLE) TOTAL CELLS COUNTED (test code=TCC) #CELLS SEGMENTED NEUTROPHILS (test code=SEG) % 39-69 LYMPHOCYTE (test code=LYMPH) % 25-55 MONOCYTE (test code=MON) % 0-10 EOSINOPHIL (test code=EOS) % 0.0-5.0 CABOT RINGS (test code=CAB) MORPHOLOGY COMMENT (test code=MOC) PLATELET ESTIMATE (test code=PLTEST) PLATELET MORPHOLOGY (test code=PLTMORPH) CBC W/MANUAL [id number] 08:08:00* Test Item Value Reference Range Comments WHITE BLOOD CELL (test code=WBC) 11.3 K/mm3 4.5-12.5 RED BLOOD CELL (test code=RBC) 3.30 mill/mm3 3.7-5.2 HEMOGLOBIN (test code=HGB) 8.9 gram/dL 11.5-15.5 HEMATOCRIT (test code=HCT) 28.5 % 36.0-46.0 MEAN CELL VOLUME (test code=MCV) 86.4 fL 80-98 MEAN CELL HGB (test code=MCH) 27.0 picogram 27.0-33.0 MEAN CELL HGB CONCETRATION (test code=MCHC) 31.2 gram/dL 33.0-36.0 RED CELL DISTRIBUTION WIDTH (test code=RDW) 17.5 % 11.6-16.2 RED CELL DISTRIBUTION WIDTH SD (test code=RDW-SD) 49.3 fL 37.0-51.0 PLATELET COUNT (test code=PLT) 25 K/mm3 150-450 Results called to [id number]\\NORRIS by [email or web address] 11/09/18 0804Critical results verified and read back by Nurse? Y MEAN PLATELET VOLUME (test code=MPV) TEST NOT PERFORMED fL 6.7-11.0 IMMATURE GRANULOCYTE % (test code=IG%) 0.7 % 0.0-5.0 NUCLEATED RBC % (test code=NRBC%) 0.0 % 0-0 NEUTROPHIL # (test code=NT#) 5.37 K/mm3 1.8-7.7 IMMATURE GRANULOCYTE # (test code=IG#) 0.08 x10 3/uL 0-0.03 LYMPHOCYTE # (test code=LY#) 4.69 K/mm3 1.0-5.0 MONOCYTE # (test code=MO#) 1.06 K/mm3 0-0.8 EOSINOPHIL # (test code=EO#) 0.01 K/mm3 0.0-0.5 BASOPHIL # (test code=BA#) 0.05 K/mm3 0.0-0.2 NUCLEATED RBC # (test code=NRBC#) 0.00 K/mm3 0.0-0.1 MANUAL DIFF REQUIRED (test code=MDIFF) YES STAIN ACCEPTABILITY (test code=STN ACCEPTABLE) TOTAL CELLS COUNTED (test code=TCC) #CELLS SEGMENTED NEUTROPHILS (test code=SEG) % 39-69 LYMPHOCYTE (test code=LYMPH) % 25-55 MONOCYTE (test code=MON) % 0-10 EOSINOPHIL (test code=EOS) % 0.0-5.0 MORPHOLOGY COMMENT (test code=MOC) PLATELET ESTIMATE (test code=PLTEST) PLATELET MORPHOLOGY (test code=PLTMORPH) CBC W/MANUAL [id number] 08:08:00* Test Item Value Reference Range Comments WHITE BLOOD CELL (test code=WBC) 11.3 K/mm3 4.5-12.5 RED BLOOD CELL (test code=RBC) 3.30 mill/mm3 3.7-5.2 HEMOGLOBIN (test code=HGB) 8.9 gram/dL 11.5-15.5 HEMATOCRIT (test code=HCT) 28.5 % 36.0-46.0 MEAN CELL VOLUME (test code=MCV) 86.4 fL 80-98 MEAN CELL HGB (test code=MCH) 27.0 picogram 27.0-33.0 MEAN CELL HGB CONCETRATION (test code=MCHC) 31.2 gram/dL 33.0-36.0 RED CELL DISTRIBUTION WIDTH (test code=RDW) 17.5 % 11.6-16.2 RED CELL DISTRIBUTION WIDTH SD (test code=RDW-SD) 49.3 fL 37.0-51.0 PLATELET COUNT (test code=PLT) 25 K/mm3 150-450 Results called to [id number] by MADELAINEKNKetan 11/09/18 0804Critical results verified and read back by Nurse? Y MEAN PLATELET VOLUME (test code=MPV) TEST NOT PERFORMED fL 6.7-11.0 IMMATURE GRANULOCYTE % (test code=IG%) 0.7 % 0.0-5.0 NUCLEATED RBC % (test code=NRBC%) 0.0 % 0-0 NEUTROPHIL # (test code=NT#) 5.37 K/mm3 1.8-7.7 IMMATURE GRANULOCYTE # (test code=IG#) 0.08 x10 3/uL 0-0.03 LYMPHOCYTE # (test code=LY#) 4.69 K/mm3 1.0-5.0 MONOCYTE # (test code=MO#) 1.06 K/mm3 0-0.8 EOSINOPHIL # (test code=EO#) 0.01 K/mm3 0.0-0.5 BASOPHIL # (test code=BA#) 0.05 K/mm3 0.0-0.2 NUCLEATED RBC # (test code=NRBC#) 0.00 K/mm3 0.0-0.1 MANUAL DIFF REQUIRED (test code=MDIFF) YES STAIN ACCEPTABILITY (test code=STN ACCEPTABLE) TOTAL CELLS COUNTED (test code=TCC) #CELLS SEGMENTED NEUTROPHILS (test code=SEG) % 39-69 LYMPHOCYTE (test code=LYMPH) % 25-55 MONOCYTE (test code=MON) % 0-10 MORPHOLOGY COMMENT (test code=MOC) PLATELET ESTIMATE (test code=PLTEST) PLATELET MORPHOLOGY (test code=PLTMORPH) CBC W/MANUAL [id number] 08:08:00* Test Item Value Reference Range Comments WHITE BLOOD CELL (test code=WBC) 11.3 K/mm3 4.5-12.5 RED BLOOD CELL (test code=RBC) 3.30 mill/mm3 3.7-5.2 HEMOGLOBIN (test code=HGB) 8.9 gram/dL 11.5-15.5 HEMATOCRIT (test code=HCT) 28.5 % 36.0-46.0 MEAN CELL VOLUME (test code=MCV) 86.4 fL 80-98 MEAN CELL HGB (test code=MCH) 27.0 picogram 27.0-33.0 MEAN CELL HGB CONCETRATION (test code=MCHC) 31.2 gram/dL 33.0-36.0 RED CELL DISTRIBUTION WIDTH (test code=RDW) 17.5 % 11.6-16.2 RED CELL DISTRIBUTION WIDTH SD (test code=RDW-SD) 49.3 fL 37.0-51.0 PLATELET COUNT (test code=PLT) 25 K/mm3 150-450 Results called to RADHIKA by MADELAINEKNKetan 11/09/18 0804Critical results verified and read back by Nurse? Y MEAN PLATELET VOLUME (test code=MPV) TEST NOT PERFORMED fL 6.7-11.0 IMMATURE GRANULOCYTE % (test code=IG%) 0.7 % 0.0-5.0 NUCLEATED RBC % (test code=NRBC%) 0.0 % 0-0 NEUTROPHIL # (test code=NT#) 5.37 K/mm3 1.8-7.7 IMMATURE GRANULOCYTE # (test code=IG#) 0.08 x10 3/uL 0-0.03 LYMPHOCYTE # (test code=LY#) 4.69 K/mm3 1.0-5.0 MONOCYTE # (test code=MO#) 1.06 K/mm3 0-0.8 EOSINOPHIL # (test code=EO#) 0.01 K/mm3 0.0-0.5 BASOPHIL # (test code=BA#) 0.05 K/mm3 0.0-0.2 NUCLEATED RBC # (test code=NRBC#) 0.00 K/mm3 0.0-0.1 MANUAL DIFF REQUIRED (test code=MDIFF) YES STAIN ACCEPTABILITY (test code=STN ACCEPTABLE) TOTAL CELLS COUNTED (test code=TCC) #CELLS SEGMENTED NEUTROPHILS (test code=SEG) % 39-69 LYMPHOCYTE (test code=LYMPH) % 25-55 MONOCYTE (test code=MON) % 0-10 EOSINOPHIL (test code=EOS) % 0.0-5.0 CABOT RINGS (test code=CAB) MORPHOLOGY COMMENT (test code=MOC) PLATELET ESTIMATE (test code=PLTEST) PLATELET MORPHOLOGY (test code=PLTMORPH) CBC W/MANUAL [id number] 11:46:00* Test Item Value Reference Range Comments WHITE BLOOD CELL (test code=WBC) 9.5 K/mm3 4.5-12.5 RED BLOOD CELL (test code=RBC) 2.73 mill/mm3 3.7-5.2 HEMOGLOBIN (test code=HGB) 7.2 gram/dL 11.5-15.5 HEMATOCRIT (test code=HCT) 24.2 % 36.0-46.0 MEAN CELL VOLUME (test code=MCV) 88.6 fL 80-98 MEAN CELL HGB (test code=MCH) 26.4 picogram 27.0-33.0 MEAN CELL HGB CONCETRATION (test code=MCHC) 29.8 gram/dL 33.0-36.0 RED CELL DISTRIBUTION WIDTH (test code=RDW) 19.4 % 11.6-16.2 RED CELL DISTRIBUTION WIDTH SD (test code=RDW-SD) 56.7 fL 37.0-51.0 PLATELET COUNT (test code=PLT) 25 K/mm3 150-450 Results called to [id number] by V.LAB.LDB 11/08/18 1109Critical results verified and read back by Nurse? Y MEAN PLATELET VOLUME (test code=MPV) TEST NOT PERFORMED fL 6.7-11.0 Unable to determine due to platelet abnormality , please seethe platelet morphology. IMMATURE GRANULOCYTE % (test code=IG%) 0.6 % 0.0-5.0 NUCLEATED RBC % (test code=NRBC%) 0.0 % 0-0 NEUTROPHIL # (test code=NT#) 4.35 K/mm3 1.8-7.7 IMMATURE GRANULOCYTE # (test code=IG#) 0.06 x10 3/uL 0-0.03 LYMPHOCYTE # (test code=LY#) 4.19 K/mm3 1.0-5.0 MONOCYTE # (test code=MO#) 0.83 K/mm3 0-0.8 EOSINOPHIL # (test code=EO#) 0.06 K/mm3 0.0-0.5 BASOPHIL # (test code=BA#) 0.04 K/mm3 0.0-0.2 NUCLEATED RBC # (test code=NRBC#) 0.00 K/mm3 0.0-0.1 MANUAL DIFF REQUIRED (test code=MDIFF) YES STAIN ACCEPTABILITY (test code=STN ACCEPTABLE) STAIN ACCEPTABLE TOTAL CELLS COUNTED (test code=TCC) 115 #CELLS SEGMENTED NEUTROPHILS (test code=SEG) 67.8 % 39-69 BAND NEUTROPHIL (test code=BAND) 0 % 0-10 LYMPHOCYTE (test code=LYMPH) 26.1 % 25-55 REACTIVE LYMPH (test code=RELYMPH) 0 % MONOCYTE (test code=MON) 5.2 % 0-10 EOSINOPHIL (test code=EOS) 0 % 0.0-5.0 BASOPHIL (test code=BASO) 0.9 % 0-1.0 METAMYELOCYTE (test code=META) 0 % 0-0 MYELOCYTE (test code=MYELO) 0 % 0.0-0.0 PROMYELOCYTE (test code=PROM) 0 % 0-0 HYPOCHROMIA (test code=HYPO) 1+ ANISOCYTOSIS (test code=ANISO) 2+ PLATELET ESTIMATE (test code=PLTEST) DECREASED PLATELET MORPHOLOGY (test code=PLTMORPH) NORMAL IMMATURE FORMS (test code=IMMAT) 0 % B.KH1 11/08/18 0710CBC W/MANUAL [id number] 11:11:00* Test Item Value Reference Range Comments WHITE BLOOD CELL (test code=WBC) 9.5 K/mm3 4.5-12.5 RED BLOOD CELL (test code=RBC) 2.73 mill/mm3 3.7-5.2 HEMOGLOBIN (test code=HGB) 7.2 gram/dL 11.5-15.5 HEMATOCRIT (test code=HCT) 24.2 % 36.0-46.0 MEAN CELL VOLUME (test code=MCV) 88.6 fL 80-98 MEAN CELL HGB (test code=MCH) 26.4 picogram 27.0-33.0 MEAN CELL HGB CONCETRATION (test code=MCHC) 29.8 gram/dL 33.0-36.0 RED CELL DISTRIBUTION WIDTH (test code=RDW) 19.4 % 11.6-16.2 RED CELL DISTRIBUTION WIDTH SD (test code=RDW-SD) 56.7 fL 37.0-51.0 PLATELET COUNT (test code=PLT) 25 K/mm3 150-450 Results called to [id number] by V.LAB.LDB 11/08/18 1109Critical results verified and read back by Nurse? Y MEAN PLATELET VOLUME (test code=MPV) TEST NOT PERFORMED fL 6.7-11.0 Unable to determine due to platelet abnormality , please seethe platelet morphology. IMMATURE GRANULOCYTE % (test code=IG%) 0.6 % 0.0-5.0 NUCLEATED RBC % (test code=NRBC%) 0.0 % 0-0 NEUTROPHIL # (test code=NT#) 4.35 K/mm3 1.8-7.7 IMMATURE GRANULOCYTE # (test code=IG#) 0.06 x10 3/uL 0-0.03 LYMPHOCYTE # (test code=LY#) 4.19 K/mm3 1.0-5.0 MONOCYTE # (test code=MO#) 0.83 K/mm3 0-0.8 EOSINOPHIL # (test code=EO#) 0.06 K/mm3 0.0-0.5 BASOPHIL # (test code=BA#) 0.04 K/mm3 0.0-0.2 NUCLEATED RBC # (test code=NRBC#) 0.00 K/mm3 0.0-0.1 MANUAL DIFF REQUIRED (test code=MDIFF) YES STAIN ACCEPTABILITY (test code=STN ACCEPTABLE) TOTAL CELLS COUNTED (test code=TCC) #CELLS SEGMENTED NEUTROPHILS (test code=SEG) % 39-69 LYMPHOCYTE (test code=LYMPH) % 25-55 MONOCYTE (test code=MON) % 0-10 EOSINOPHIL (test code=EOS) % 0.0-5.0 CABOT RINGS (test code=CAB) MORPHOLOGY COMMENT (test code=MOC) PLATELET ESTIMATE (test code=PLTEST) PLATELET MORPHOLOGY (test code=PLTMORPH) B.KH1 11/08/18 0710CBC W/MANUAL [id number] 11:11:00* Test Item Value Reference Range Comments WHITE BLOOD CELL (test code=WBC) 9.5 K/mm3 4.5-12.5 RED BLOOD CELL (test code=RBC) 2.73 mill/mm3 3.7-5.2 HEMOGLOBIN (test code=HGB) 7.2 gram/dL 11.5-15.5 HEMATOCRIT (test code=HCT) 24.2 % 36.0-46.0 MEAN CELL VOLUME (test code=MCV) 88.6 fL 80-98 MEAN CELL HGB (test code=MCH) 26.4 picogram 27.0-33.0 MEAN CELL HGB CONCETRATION (test code=MCHC) 29.8 gram/dL 33.0-36.0 RED CELL DISTRIBUTION WIDTH (test code=RDW) 19.4 % 11.6-16.2 RED CELL DISTRIBUTION WIDTH SD (test code=RDW-SD) 56.7 fL 37.0-51.0 PLATELET COUNT (test code=PLT) 25 K/mm3 150-450 Results called to [id number] by V.LAB.LDB 11/08/18 1109Critical results verified and read back by Nurse? Y MEAN PLATELET VOLUME (test code=MPV) TEST NOT PERFORMED fL 6.7-11.0 Unable to determine due to platelet abnormality , please seethe platelet morphology. IMMATURE GRANULOCYTE % (test code=IG%) 0.6 % 0.0-5.0 NUCLEATED RBC % (test code=NRBC%) 0.0 % 0-0 NEUTROPHIL # (test code=NT#) 4.35 K/mm3 1.8-7.7 IMMATURE GRANULOCYTE # (test code=IG#) 0.06 x10 3/uL 0-0.03 LYMPHOCYTE # (test code=LY#) 4.19 K/mm3 1.0-5.0 MONOCYTE # (test code=MO#) 0.83 K/mm3 0-0.8 EOSINOPHIL # (test code=EO#) 0.06 K/mm3 0.0-0.5 BASOPHIL # (test code=BA#) 0.04 K/mm3 0.0-0.2 NUCLEATED RBC # (test code=NRBC#) 0.00 K/mm3 0.0-0.1 MANUAL DIFF REQUIRED (test code=MDIFF) YES STAIN ACCEPTABILITY (test code=STN ACCEPTABLE) TOTAL CELLS COUNTED (test code=TCC) #CELLS SEGMENTED NEUTROPHILS (test code=SEG) % 39-69 LYMPHOCYTE (test code=LYMPH) % 25-55 MONOCYTE (test code=MON) % 0-10 EOSINOPHIL (test code=EOS) % 0.0-5.0 CABOT RINGS (test code=CAB) MORPHOLOGY COMMENT (test code=MOC) PLATELET ESTIMATE (test code=PLTEST) PLATELET MORPHOLOGY (test code=PLTMORPH) B.KH1 11/08/18 0710CBC W/MANUAL [id number] 11:11:00* Test Item Value Reference Range Comments WHITE BLOOD CELL (test code=WBC) 9.5 K/mm3 4.5-12.5 RED BLOOD CELL (test code=RBC) 2.73 mill/mm3 3.7-5.2 HEMOGLOBIN (test code=HGB) 7.2 gram/dL 11.5-15.5 HEMATOCRIT (test code=HCT) 24.2 % 36.0-46.0 MEAN CELL VOLUME (test code=MCV) 88.6 fL 80-98 MEAN CELL HGB (test code=MCH) 26.4 picogram 27.0-33.0 MEAN CELL HGB CONCETRATION (test code=MCHC) 29.8 gram/dL 33.0-36.0 RED CELL DISTRIBUTION WIDTH (test code=RDW) 19.4 % 11.6-16.2 RED CELL DISTRIBUTION WIDTH SD (test code=RDW-SD) 56.7 fL 37.0-51.0 PLATELET COUNT (test code=PLT) 25 K/mm3 150-450 Results called to [id number] by GISELLE 11/08/18 1109Critical results verified and read back by Nurse? Y MEAN PLATELET VOLUME (test code=MPV) TEST NOT PERFORMED fL 6.7-11.0 Unable to determine due to platelet abnormality , please seethe platelet morphology. IMMATURE GRANULOCYTE % (test code=IG%) 0.6 % 0.0-5.0 NUCLEATED RBC % (test code=NRBC%) 0.0 % 0-0 NEUTROPHIL # (test code=NT#) 4.35 K/mm3 1.8-7.7 IMMATURE GRANULOCYTE # (test code=IG#) 0.06 x10 3/uL 0-0.03 LYMPHOCYTE # (test code=LY#) 4.19 K/mm3 1.0-5.0 MONOCYTE # (test code=MO#) 0.83 K/mm3 0-0.8 EOSINOPHIL # (test code=EO#) 0.06 K/mm3 0.0-0.5 BASOPHIL # (test code=BA#) 0.04 K/mm3 0.0-0.2 NUCLEATED RBC # (test code=NRBC#) 0.00 K/mm3 0.0-0.1 MANUAL DIFF REQUIRED (test code=MDIFF) YES STAIN ACCEPTABILITY (test code=STN ACCEPTABLE) TOTAL CELLS COUNTED (test code=TCC) #CELLS SEGMENTED NEUTROPHILS (test code=SEG) % 39-69 LYMPHOCYTE (test code=LYMPH) % 25-55 MONOCYTE (test code=MON) % 0-10 EOSINOPHIL (test code=EOS) % 0.0-5.0 MORPHOLOGY COMMENT (test code=MOC) PLATELET ESTIMATE (test code=PLTEST) PLATELET MORPHOLOGY (test code=PLTMORPH) BWilliamsKH1 11/08/18 0710CBC W/MANUAL [id number] 11:11:00* Test Item Value Reference Range Comments WHITE BLOOD CELL (test code=WBC) 9.5 K/mm3 4.5-12.5 RED BLOOD CELL (test code=RBC) 2.73 mill/mm3 3.7-5.2 HEMOGLOBIN (test code=HGB) 7.2 gram/dL 11.5-15.5 HEMATOCRIT (test code=HCT) 24.2 % 36.0-46.0 MEAN CELL VOLUME (test code=MCV) 88.6 fL 80-98 MEAN CELL HGB (test code=MCH) 26.4 picogram 27.0-33.0 MEAN CELL HGB CONCETRATION (test code=MCHC) 29.8 gram/dL 33.0-36.0 RED CELL DISTRIBUTION WIDTH (test code=RDW) 19.4 % 11.6-16.2 RED CELL DISTRIBUTION WIDTH SD (test code=RDW-SD) 56.7 fL 37.0-51.0 PLATELET COUNT (test code=PLT) 25 K/mm3 150-450 Results called to [id number] by MELISSA.LDB 11/08/18 1109Critical results verified and read back by Nurse? Y MEAN PLATELET VOLUME (test code=MPV) TEST NOT PERFORMED fL 6.7-11.0 Unable to determine due to platelet abnormality , please seethe platelet morphology. IMMATURE GRANULOCYTE % (test code=IG%) 0.6 % 0.0-5.0 NUCLEATED RBC % (test code=NRBC%) 0.0 % 0-0 NEUTROPHIL # (test code=NT#) 4.35 K/mm3 1.8-7.7 IMMATURE GRANULOCYTE # (test code=IG#) 0.06 x10 3/uL 0-0.03 LYMPHOCYTE # (test code=LY#) 4.19 K/mm3 1.0-5.0 MONOCYTE # (test code=MO#) 0.83 K/mm3 0-0.8 EOSINOPHIL # (test code=EO#) 0.06 K/mm3 0.0-0.5 BASOPHIL # (test code=BA#) 0.04 K/mm3 0.0-0.2 NUCLEATED RBC # (test code=NRBC#) 0.00 K/mm3 0.0-0.1 MANUAL DIFF REQUIRED (test code=MDIFF) YES STAIN ACCEPTABILITY (test code=STN ACCEPTABLE) TOTAL CELLS COUNTED (test code=TCC) #CELLS SEGMENTED NEUTROPHILS (test code=SEG) % 39-69 LYMPHOCYTE (test code=LYMPH) % 25-55 MONOCYTE (test code=MON) % 0-10 MORPHOLOGY COMMENT (test code=MOC) PLATELET ESTIMATE (test code=PLTEST) PLATELET MORPHOLOGY (test code=PLTMORPH) B.KH1 11/08/18 0710CBC W/MANUAL [id number] 11:11:00* Test Item Value Reference Range Comments WHITE BLOOD CELL (test code=WBC) 9.5 K/mm3 4.5-12.5 RED BLOOD CELL (test code=RBC) 2.73 mill/mm3 3.7-5.2 HEMOGLOBIN (test code=HGB) 7.2 gram/dL 11.5-15.5 HEMATOCRIT (test code=HCT) 24.2 % 36.0-46.0 MEAN CELL VOLUME (test code=MCV) 88.6 fL 80-98 MEAN CELL HGB (test code=MCH) 26.4 picogram 27.0-33.0 MEAN CELL HGB CONCETRATION (test code=MCHC) 29.8 gram/dL 33.0-36.0 RED CELL DISTRIBUTION WIDTH (test code=RDW) 19.4 % 11.6-16.2 RED CELL DISTRIBUTION WIDTH SD (test code=RDW-SD) 56.7 fL 37.0-51.0 PLATELET COUNT (test code=PLT) 25 K/mm3 150-450 Results called to [id number] by GISELLE 11/08/18 1109Critical results verified and read back by Nurse? Y MEAN PLATELET VOLUME (test code=MPV) TEST NOT PERFORMED fL 6.7-11.0 Unable to determine due to platelet abnormality , please seethe platelet morphology. IMMATURE GRANULOCYTE % (test code=IG%) 0.6 % 0.0-5.0 NUCLEATED RBC % (test code=NRBC%) 0.0 % 0-0 NEUTROPHIL # (test code=NT#) 4.35 K/mm3 1.8-7.7 IMMATURE GRANULOCYTE # (test code=IG#) 0.06 x10 3/uL 0-0.03 LYMPHOCYTE # (test code=LY#) 4.19 K/mm3 1.0-5.0 MONOCYTE # (test code=MO#) 0.83 K/mm3 0-0.8 EOSINOPHIL # (test code=EO#) 0.06 K/mm3 0.0-0.5 BASOPHIL # (test code=BA#) 0.04 K/mm3 0.0-0.2 NUCLEATED RBC # (test code=NRBC#) 0.00 K/mm3 0.0-0.1 MANUAL DIFF REQUIRED (test code=MDIFF) YES STAIN ACCEPTABILITY (test code=STN ACCEPTABLE) TOTAL CELLS COUNTED (test code=TCC) #CELLS SEGMENTED NEUTROPHILS (test code=SEG) % 39-69 LYMPHOCYTE (test code=LYMPH) % 25-55 MONOCYTE (test code=MON) % 0-10 EOSINOPHIL (test code=EOS) % 0.0-5.0 CABOT RINGS (test code=CAB) MORPHOLOGY COMMENT (test code=MOC) PLATELET ESTIMATE (test code=PLTEST) PLATELET MORPHOLOGY (test code=PLTMORPH) HemalathaKH1 11/08/18 0710- US ABDOMEN [id number] 17:08:00 Name: SIOBHAN BARBOSA [facility] : 1965 Age/S: 53 / F [address] [facility] Unit #: [id number] Loc: [place] [address] Phys: Earlene Moraes Acct: [id number] Dis Date: Status: ADM IN PHONE #: [phone] Exam Date: 11/07/2018 1705 FAX #: [phone] Reason: abd distention; CHECK ASCITES EXAMS: CPT CODE: [id number] US ABDOMEN LTD [id number] REASON FOR EXAM: abd distention; CHECK ASCITES EXAM ORDER DATE: 11/07/2018 3:07 PM Attending Michelet: NISHANT Guerra PROCEDURE: - US ABDOMEN LTD FINDINGS: Limited focal ultrasound performed for assessment of ascites IMPRESSION: Septated small complex ascites with the largest pockets in the right upper and lower quadrants at 1708 Reported and signed by: Jewel Reyez M.D. CC: Gray Knott; Earlene Moraes Technologist: Hermann Perez [facility] Date/Time: 11/07/2018 (3780) MengVTJace PAGE 1 Signed Report BASIC METABOLIC [id number] 07:42:00* Test Item Value Reference Range Comments SODIUM (test code=NA) 141 mmol/L 136-145 POTASSIUM (test code=K) 3.4 mmol/L 3.5-5.1 CHLORIDE (test code=CL) 110.0 mmol/L 98-107 CARBON DIOXIDE (test code=CO2) 20.0 mmol/L 21-32 ANION GAP (test code=GAP) 14.4 10-20 GLUCOSE (test code=GLU) 111 mg/dL 74-106 BLOOD UREA NITROGEN (test code=BUN) 53 mg/dL 7-18 GLOMERULAR FILTRATION RATE (test code=GFR) 19 mL/min >=60 Estimated GFR by using Modified MDRD formula.Chronic kidney disease is defined as either kidney damageor GFR <60 mL/min/1.73 m2 for >3 months. CREATININE (test code=CREAT) 2.60 mg/dL 0.55-1.02 Note change in reference range due to change in reagent. BUN/CREATININE RATIO (test code=BUN/CREA) 20.4 10-20 CALCIUM (test code=CA) 8.5 mg/dL 8.5-10.1 BASIC METABOLIC [id number] 07:19:00* Test Item Value Reference Range Comments SODIUM (test code=NA) 141 mmol/L 136-145 POTASSIUM (test code=K) 3.4 mmol/L 3.5-5.1 CHLORIDE (test code=CL) 110.0 mmol/L 98-107 CARBON DIOXIDE (test code=CO2) mmol/L 21-32 ANION GAP (test code=GAP) 10-20 GLUCOSE (test code=GLU) mg/dL 74-106 BLOOD UREA NITROGEN (test code=BUN) mg/dL 7-18 GLOMERULAR FILTRATION RATE (test code=GFR) mL/min >=60 CREATININE (test code=CREAT) mg/dL 0.55-1.02 BUN/CREATININE RATIO (test code=BUN/CREA) 10-20 CALCIUM (test code=CA) mg/dL 8.5-10.1 BASIC METABOLIC [id number] 20:19:00* Test Item Value Reference Range Comments SODIUM (test code=NA) 140 mmol/L 136-145 POTASSIUM (test code=K) 3.3 mmol/L 3.5-5.1 CHLORIDE (test code=CL) 110.0 mmol/L 98-107 CARBON DIOXIDE (test code=CO2) 20.0 mmol/L 21-32 ANION GAP (test code=GAP) 13.3 10-20 GLUCOSE (test code=GLU) 136 mg/dL 74-106 BLOOD UREA NITROGEN (test code=BUN) 49 mg/dL 7-18 GLOMERULAR FILTRATION RATE (test code=GFR) 18 mL/min >=60 Estimated GFR by using Modified MDRD formula.Chronic kidney disease is defined as either kidney damageor GFR <60 mL/min/1.73 m2 for >3 months. CREATININE (test code=CREAT) 2.80 mg/dL 0.55-1.02 Note change in reference range due to change in reagent. BUN/CREATININE RATIO (test code=BUN/CREA) 17.5 10-20 CALCIUM (test code=CA) 8.4 mg/dL 8.5-10.1 11/06/18 0805NOTIFIED- SP PARACENTESIS W [id number] 20:07:00 Name: SIOBHAN BARBOSA [facility] SP : 1965 Age/S: 53 / F [address] [facility] Unit #: [id number] [place]: [place] [address] Phys: John Knott MD Acct: [id number] Di s Date: Status: ADM IN PHONE #: Exam Date: 10/27/20181919 FAX #: Reason: EXAMS: CPT CODE: [id number] SP PARACENTESIS W IMAGE [id number] Fluoro Time: 0 DAP (Gy m2 ): 0 Air Kerma (mGy): 0 EXAM: Ultrasound-guided paracentesis; INFORMATION: Cirrhosis; ascites; TECHNIQUE AND FINDI NGS: Informed consent was obtained and the patient was positioned supine. Ultrasound of the abdomen showed a large intraperitoneal fluid radha ection with low-level echoes. The patient's skin in the mid abdominal padmini on and the right lower quadrant was prepped and draped in usual sterile fa shion. Xylocaine was administered and using sonographic guidance an 8-[facility] pigtail catheter was inserted into the peritoneal cavity. 1 L of ascites fluid were drained and samples were sent to the lab. The drainage catheter was then removed. No complications. IMPRESSION: Successful ultrasound-guided paracentesis. Electro nically Signed by Michelet Alvarez on 11/06/2018 at 2006 Reported and signed by: Jameel linder M.D. CC: Gray Knott Technologist: Todd Andrews [facility] Date/Time: 11/06/2018 (2006) [email or web address] Orig Print D/T: S: 11/06/2018 (2009) PAGE 1 Signed Report BASIC METABOLIC [id number] 05:22:00* Test Item Value Reference Range Comments SODIUM (test code=NA) 140 mmol/L 136-145 POTASSIUM (test code=K) 3.7 mmol/L 3.5-5.1 CHLORIDE (test code=CL) 110.0 mmol/L 98-107 CARBON DIOXIDE (test code=CO2) 20.0 mmol/L 21-32 ANION GAP (test code=GAP) 13.7 10-20 GLUCOSE (test code=GLU) 72 mg/dL 74-106 BLOOD UREA NITROGEN (test code=BUN) 43 mg/dL 7-18 GLOMERULAR FILTRATION RATE (test code=GFR) 18 mL/min >=60 Estimated GFR by using Modified MDRD formula.Chronic kidney disease is defined as either kidney damageor GFR <60 mL/min/1.73 m2 for >3 months. CREATININE (test code=CREAT) 2.80 mg/dL 0.55-1.02 Note change in reference range due to change in reagent. BUN/CREATININE RATIO (test code=BUN/CREA) 15.4 10-20 CALCIUM (test code=CA) 8.2 mg/dL 8.5-10.1 BASIC METABOLIC [id number] 05:19:00* Test Item Value Reference Range Comments SODIUM (test code=NA) 140 mmol/L 136-145 POTASSIUM (test code=K) 3.7 mmol/L 3.5-5.1 CHLORIDE (test code=CL) 110.0 mmol/L 98-107 CARBON DIOXIDE (test code=CO2) mmol/L 21-32 ANION GAP (test code=GAP) 10-20 GLUCOSE (test code=GLU) mg/dL 74-106 BLOOD UREA NITROGEN (test code=BUN) mg/dL 7-18 GLOMERULAR FILTRATION RATE (test code=GFR) mL/min >=60 CREATININE (test code=CREAT) mg/dL 0.55-1.02 BUN/CREATININE RATIO (test code=BUN/CREA) 10-20 CALCIUM (test code=CA) 8.2 mg/dL 8.5-10.1 [id number] 05:18:00* Test Item Value Reference Range Comments PHOSPHORUS (test code=PHOS) 4.2 mg/dL 2.5-4.9 [id number] 05:18:00* Test Item Value Reference Range Comments MAGNESIUM (test code=MAG) 1.8 mg/dL 1.8-2.4 BASIC METABOLIC [id number] 06:35:00* Test Item Value Reference Range Comments SODIUM (test code=NA) 140 mmol/L 136-145 POTASSIUM (test code=K) 3.8 mmol/L 3.5-5.1 CHLORIDE (test code=CL) 109.0 mmol/L 98-107 CARBON DIOXIDE (test code=CO2) 22.0 mmol/L 21-32 ANION GAP (test code=GAP) 12.8 10-20 GLUCOSE (test code=GLU) 114 mg/dL 74-106 BLOOD UREA NITROGEN (test code=BUN) 43 mg/dL 7-18 GLOMERULAR FILTRATION RATE (test code=GFR) 17 mL/min >=60 Estimated GFR by using Modified MDRD formula.Chronic kidney disease is defined as either kidney damageor GFR <60 mL/min/1.73 m2 for >3 months. CREATININE (test code=CREAT) 2.90 mg/dL 0.55-1.02 Note change in reference range due to change in reagent. BUN/CREATININE RATIO (test code=BUN/CREA) 14.8 10-20 CALCIUM (test code=CA) 8.4 mg/dL 8.5-10.1 [id number] 06:35:00* Test Item Value Reference Range Comments PHOSPHORUS (test code=PHOS) 3.8 mg/dL 2.5-4.9 [id number] 06:35:00* Test Item Value Reference Range Comments MAGNESIUM (test code=MAG) 1.9 mg/dL 1.8-2.4 B-TYPE NATRIURETIC [id number] 16:41:00* Test Item Value Reference Range Comments B-TYPE NATRIURETIC PEPTIDE (test code=BNP) 267.77 pgram/mL 0-100 BASIC METABOLIC [id number] 06:44:00* Test Item Value Reference Range Comments SODIUM (test code=NA) 140 mmol/L 136-145 POTASSIUM (test code=K) 3.0 mmol/L 3.5-5.1 CHLORIDE (test code=CL) 107.2 mmol/L 98-107 CARBON DIOXIDE (test code=CO2) 22.0 mmol/L 21-32 ANION GAP (test code=GAP) 13.8 10-20 GLUCOSE (test code=GLU) 121 mg/dL 74-106 BLOOD UREA NITROGEN (test code=BUN) 39 mg/dL 7-18 GLOMERULAR FILTRATION RATE (test code=GFR) 18 mL/min >=60 Estimated GFR by using Modified MDRD formula.Chronic kidney disease is defined as either kidney damageor GFR <60 mL/min/1.73 m2 for >3 months. CREATININE (test code=CREAT) 2.80 mg/dL 0.55-1.02 Note change in reference range due to change in reagent. BUN/CREATININE RATIO (test code=BUN/CREA) 13.9 10-20 CALCIUM (test code=CA) 8.3 mg/dL 8.5-10.1 [id number] 06:44:00* Test Item Value Reference Range Comments PHOSPHORUS (test code=PHOS) 4.2 mg/dL 2.5-4.9 [id number] 06:44:00* Test Item Value Reference Range Comments MAGNESIUM (test code=MAG) 1.8 mg/dL 1.8-2.4 FLUID CREATININE [id number] 19:33:00* Test Item Value Reference Range Comments FLUID CREATININE (test code=CREATF) 3.49 SOURCE (test code=SOURCE) DOMINICK DRAIN SPECIMEN COMMENTS: DOMINICK DRAIN LEFT [id number] 16:09:00* Test Item Value Reference Range Comments AMMONIA (test code=AMM) 18 umol/L 11-32 - XR SWLW [facility] W/C [id number] 14:13:00 FAX: Kim Wayne MD [phone] [place]: B St: [facility] FAX: Gray Luong MD Name: SIOBHAN BARBOSA [facility] : 1965 Age/S: 53/F Jana Whiting Unit #: [id number] Loc: [id number].[id number] [address] [address] Phys: Kim Dill MD Acct: [id number] Dis Date: Status: ADM IN PHONE #: [phone] Exam Date: 11/02/2018 1152 FAX #: [phone] Reason: ASSESS SWALLOW EXAMS: CPT CODE: [id number] XR SWLW FUN W/C V [id number] HISTORY: [facility]. [facility]. Varying grades of barium were administered. Silent aspiration with thin liquids via straw. IMPRESSION: Silent aspiration with thin liquids via straw. For detailed evaluation please see the accompanying sh eet provided by the speech therapist. Fluoroscopy time utilized was 1.5 minutes and 3 images were obtained. at 1413 Repor mita and signed by: Krystian Johnson M.D. CC: Kim Dill MD; Gray Knott Technologist: Stephany Menjivar RT(R) Trnscrd Date/Time/By: 11/02/2018 (1413) : By: Ramya .TH4 Orig Print D/T: S: 11/02/2018 (9292) PAGE 1 Signed Report B-TYPE NATRIURETIC [id number] 06:36:00* Test Item Value Reference Range Comments B-TYPE NATRIURETIC PEPTIDE (test code=BNP) 376.94 pgram/mL 0-100 BASIC METABOLIC [id number] 06:35:00* Test Item Value Reference Range Comments SODIUM (test code=NA) 144 mmol/L 136-145 POTASSIUM (test code=K) 2.9 mmol/L 3.5-5.1 Results called to [id number] by MONICA 11/02/18 0635Critical results verified and read back by Nurse? Y CHLORIDE (test code=CL) 107.0 mmol/L 98-107 CARBON DIOXIDE (test code=CO2) 22.0 mmol/L 21-32 ANION GAP (test code=GAP) 17.9 10-20 GLUCOSE (test code=GLU) 125 mg/dL 74-106 BLOOD UREA NITROGEN (test code=BUN) 36 mg/dL 7-18 GLOMERULAR FILTRATION RATE (test code=GFR) 17 mL/min >=60 Estimated GFR by using Modified MDRD formula.Chronic kidney disease is defined as either kidney damageor GFR <60 mL/min/1.73 m2 for >3 months. CREATININE (test code=CREAT) 2.90 mg/dL 0.55-1.02 Note change in reference range due to change in reagent. BUN/CREATININE RATIO (test code=BUN/CREA) 12.4 10-20 CALCIUM (test code=CA) 8.5 mg/dL 8.5-10.1 BASIC METABOLIC [id number] 06:14:00* Test Item Value Reference Range Comments SODIUM (test code=NA) mmol/L 136-145 POTASSIUM (test code=K) mmol/L 3.5-5.1 CHLORIDE (test code=CL) mmol/L 98-107 CARBON DIOXIDE (test code=CO2) 22.0 mmol/L 21-32 ANION GAP (test code=GAP) 10-20 GLUCOSE (test code=GLU) 125 mg/dL 74-106 BLOOD UREA NITROGEN (test code=BUN) 36 mg/dL 7-18 GLOMERULAR FILTRATION RATE (test code=GFR) 17 mL/min >=60 Estimated GFR by using Modified MDRD formula.Chronic kidney disease is defined as either kidney damageor GFR <60 mL/min/1.73 m2 for >3 months. CREATININE (test code=CREAT) 2.90 mg/dL 0.55-1.02 Note change in reference range due to change in reagent. BUN/CREATININE RATIO (test code=BUN/CREA) 12.4 10-20 CALCIUM (test code=CA) 8.5 mg/dL 8.5-10.1 - XR CHEST 1 [id number] 06:18:00 FAX: Kim Wayne MD [phone] [place]: [facility]: [facility] FAX: Gray Luong MD Name: SIOBHAN BARBOSA [facility] : 1965 Age/S: 53/F [address] Unit #: [id number] Loc: VWilliamsS23 [place] [address] Phys: Kim Dill MD Acct: [id number] Dis Date: Status: ADM IN PHONE #: [phone] Exam Date: 11/01/2018 0517 FAX #: [phone] Reason: Pulmonary Edema EXAMS: CPT CODE: [id number] XR CHEST 1 V [id number] Exam: Chest portable erect Location: F6 History: Pulmonary Edema Comparison: 10/31/2018 Findings: No change has occurred in the aeration of the lungs, the bilateral pulmonary opacities or effusions. The heart size is unchanged. The mediastinal silhouette is unremarkable. The bony thorax is intact. Impression: Stable chest/no change. at 0618 Reported and signed by: Martell Villa M.D. CC: Kim Dill MD; Gray Knott Technologist: HARLEY RETANA(R) Trnscrd Date/Time/By: 11/01/2018 (0618) : By: MengFC Orig Print D/T: S: 11/01/2018 (0622) PAGE 1 Signed Report COMPREHENSIVE METABOLIC [id number] 05:28:00* Test Item Value Reference Range Comments SODIUM (test code=NA) 143 mmol/L 136-145 POTASSIUM (test code=K) 3.5 mmol/L 3.5-5.1 CHLORIDE (test code=CL) 109.0 mmol/L 98-107 CARBON DIOXIDE (test code=CO2) 25.0 mmol/L 21-32 ANION GAP (test code=GAP) 12.5 10-20 GLUCOSE (test code=GLU) 71 mg/dL 74-106 BLOOD UREA NITROGEN (test code=BUN) 30 mg/dL 7-18 GLOMERULAR FILTRATION RATE (test code=GFR) 18 mL/min >=60 Estimated GFR by using Modified MDRD formula.Chronic kidney disease is defined as either kidney damageor GFR <60 mL/min/1.73 m2 for >3 months. CREATININE (test code=CREAT) 2.70 mg/dL 0.55-1.02 Note change in reference range due to change in reagent. BUN/CREATININE RATIO (test code=BUN/CREA) 11.1 10-20 TOTAL PROTEIN (test code=PROT) 5.1 gram/dL 6.4-8.2 ALBUMIN (test code=ALB) 1.9 g/dL 3.4-5.0 GLOBULIN (test code=GLOB) 3.2 gram/dL 2.7-4.2 ALBUMIN/GLOBULIN RATIO (test code=A/G) 0.6 0.75-1.50 CALCIUM (test code=CA) 8.9 mg/dL 8.5-10.1 BILIRUBIN TOTAL (test code=BILT) 2.30 mg/dL 0.0-1.0 SGOT/AST (test code=AST) 15 IUnit/L 15-37 SGPT/ALT (test code=ALT) 17 IUnit/L 12-78 ALKALINE PHOSPHATASE TOTAL (test code=ALKP) 206 IUnit/L 45-117 Note change in reference range due to change in reagent. CBC W/AUTO [id number] 05:09:00* Test Item Value Reference Range Comments WHITE BLOOD CELL (test code=WBC) 9.0 K/mm3 4.5-12.5 RED BLOOD CELL (test code=RBC) 3.27 mill/mm3 3.7-5.2 HEMOGLOBIN (test code=HGB) 8.5 gram/dL 11.5-15.5 HEMATOCRIT (test code=HCT) 28.1 % 36.0-46.0 MEAN CELL VOLUME (test code=MCV) 85.9 fL 80-98 MEAN CELL HGB (test code=MCH) 26.0 picogram 27.0-33.0 MEAN CELL HGB CONCETRATION (test code=MCHC) 30.2 gram/dL 33.0-36.0 RED CELL DISTRIBUTION WIDTH (test code=RDW) 17.0 % 11.6-16.2 RED CELL DISTRIBUTION WIDTH SD (test code=RDW-SD) 52.9 fL 37.0-51.0 PLATELET COUNT (test code=PLT) 30 K/mm3 150-450 Results called to [id number] by MARIUM 11/01/18 0452Critical results verified and read back by Nurse? Y MEAN PLATELET VOLUME (test code=MPV) TEST NOT PERFORMED fL 6.7-11.0 NEUTROPHIL % (test code=NT%) 79.8 % 39.0-69.0 IMMATURE GRANULOCYTE % (test code=IG%) 0.8 % 0.0-5.0 LYMPHOCYTE % (test code=LY%) 13.5 % 25.0-55.0 MONOCYTE % (test code=MO%) 5.6 % 0.0-10.0 EOSINOPHIL % (test code=EO%) 0.1 % 0.0-5.0 BASOPHIL % (test code=BA%) 0.2 % 0.0-1.0 NUCLEATED RBC % (test code=NRBC%) 0.0 % 0-0 NEUTROPHIL # (test code=NT#) 7.20 K/mm3 1.8-7.7 IMMATURE GRANULOCYTE # (test code=IG#) 0.07 x10 3/uL 0-0.03 LYMPHOCYTE # (test code=LY#) 1.22 K/mm3 1.0-5.0 MONOCYTE # (test code=MO#) 0.51 K/mm3 0-0.8 EOSINOPHIL # (test code=EO#) 0.01 K/mm3 0.0-0.5 BASOPHIL # (test code=BA#) 0.02 K/mm3 0.0-0.2 NUCLEATED RBC # (test code=NRBC#) 0.00 K/mm3 0.0-0.1 MANUAL DIFF REQUIRED (test code=MDIFF) NO, ONLY SCAN NEEDED DIFFERENTIAL [id number] 05:09:00* Test Item Value Reference Range Comments STAIN ACCEPTABILITY (test code=STN ACCEPTABLE) STAIN ACCEPTABLE HYPOCHROMIA (test code=HYPO) 1+ POIKILOCYTOSIS (test code=POIK) 1+ ANISOCYTOSIS (test code=ANISO) 1+ MICROCYTOSIS (test code=MICR) 1+ PLATELET ESTIMATE (test code=PLTEST) DECREASED PLATELET MORPHOLOGY (test code=PLTMORPH) NORMAL COMPREHENSIVE METABOLIC [id number] 04:59:00* Test Item Value Reference Range Comments SODIUM (test code=NA) 143 mmol/L 136-145 POTASSIUM (test code=K) 3.5 mmol/L 3.5-5.1 CHLORIDE (test code=CL) 109.0 mmol/L 98-107 CARBON DIOXIDE (test code=CO2) mmol/L 21-32 ANION GAP (test code=GAP) 10-20 GLUCOSE (test code=GLU) mg/dL 74-106 BLOOD UREA NITROGEN (test code=BUN) mg/dL 7-18 GLOMERULAR FILTRATION RATE (test code=GFR) mL/min >=60 CREATININE (test code=CREAT) mg/dL 0.55-1.02 BUN/CREATININE RATIO (test code=BUN/CREA) 10-20 TOTAL PROTEIN (test code=PROT) gram/dL 6.4-8.2 ALBUMIN (test code=ALB) g/dL 3.4-5.0 GLOBULIN (test code=GLOB) gram/dL 2.7-4.2 ALBUMIN/GLOBULIN RATIO (test code=A/G) 0.75-1.50 CALCIUM (test code=CA) mg/dL 8.5-10.1 BILIRUBIN TOTAL (test code=BILT) mg/dL 0.0-1.0 SGOT/AST (test code=AST) IUnit/L 15-37 SGPT/ALT (test code=ALT) IUnit/L 12-78 ALKALINE PHOSPHATASE TOTAL (test code=ALKP) IUnit/L 45-117 CBC W/AUTO [id number] 04:53:00* Test Item Value Reference Range Comments WHITE BLOOD CELL (test code=WBC) 9.0 K/mm3 4.5-12.5 RED BLOOD CELL (test code=RBC) 3.27 mill/mm3 3.7-5.2 HEMOGLOBIN (test code=HGB) 8.5 gram/dL 11.5-15.5 HEMATOCRIT (test code=HCT) 28.1 % 36.0-46.0 MEAN CELL VOLUME (test code=MCV) 85.9 fL 80-98 MEAN CELL HGB (test code=MCH) 26.0 picogram 27.0-33.0 MEAN CELL HGB CONCETRATION (test code=MCHC) 30.2 gram/dL 33.0-36.0 RED CELL DISTRIBUTION WIDTH (test code=RDW) 17.0 % 11.6-16.2 RED CELL DISTRIBUTION WIDTH SD (test code=RDW-SD) 52.9 fL 37.0-51.0 PLATELET COUNT (test code=PLT) 30 K/mm3 150-450 Results called to [id number] by MARIUM 11/01/18 0452Critical results verified and read back by Nurse? Y MEAN PLATELET VOLUME (test code=MPV) TEST NOT PERFORMED fL 6.7-11.0 NEUTROPHIL % (test code=NT%) 79.8 % 39.0-69.0 IMMATURE GRANULOCYTE % (test code=IG%) 0.8 % 0.0-5.0 LYMPHOCYTE % (test code=LY%) 13.5 % 25.0-55.0 MONOCYTE % (test code=MO%) 5.6 % 0.0-10.0 EOSINOPHIL % (test code=EO%) 0.1 % 0.0-5.0 BASOPHIL % (test code=BA%) 0.2 % 0.0-1.0 NUCLEATED RBC % (test code=NRBC%) 0.0 % 0-0 NEUTROPHIL # (test code=NT#) 7.20 K/mm3 1.8-7.7 IMMATURE GRANULOCYTE # (test code=IG#) 0.07 x10 3/uL 0-0.03 LYMPHOCYTE # (test code=LY#) 1.22 K/mm3 1.0-5.0 MONOCYTE # (test code=MO#) 0.51 K/mm3 0-0.8 EOSINOPHIL # (test code=EO#) 0.01 K/mm3 0.0-0.5 BASOPHIL # (test code=BA#) 0.02 K/mm3 0.0-0.2 NUCLEATED RBC # (test code=NRBC#) 0.00 K/mm3 0.0-0.1 MANUAL DIFF REQUIRED (test code=MDIFF) NO, ONLY SCAN NEEDED DIFFERENTIAL [id number] 04:53:00* Test Item Value Reference Range Comments STAIN ACCEPTABILITY (test code=STN ACCEPTABLE) CABOT RINGS (test code=CAB) MORPHOLOGY COMMENT (test code=MOC) PLATELET ESTIMATE (test code=PLTEST) PLATELET MORPHOLOGY (test code=PLTMORPH) CBC W/AUTO [id number] 04:53:00* Test Item Value Reference Range Comments WHITE BLOOD CELL (test code=WBC) 9.0 K/mm3 4.5-12.5 RED BLOOD CELL (test code=RBC) 3.27 mill/mm3 3.7-5.2 HEMOGLOBIN (test code=HGB) 8.5 gram/dL 11.5-15.5 HEMATOCRIT (test code=HCT) 28.1 % 36.0-46.0 MEAN CELL VOLUME (test code=MCV) 85.9 fL 80-98 MEAN CELL HGB (test code=MCH) 26.0 picogram 27.0-33.0 MEAN CELL HGB CONCETRATION (test code=MCHC) 30.2 gram/dL 33.0-36.0 RED CELL DISTRIBUTION WIDTH (test code=RDW) 17.0 % 11.6-16.2 RED CELL DISTRIBUTION WIDTH SD (test code=RDW-SD) 52.9 fL 37.0-51.0 PLATELET COUNT (test code=PLT) 30 K/mm3 150-450 Results called to [id number] by MARIUM 11/01/18 0452Critical results verified and read back by Nurse? Y MEAN PLATELET VOLUME (test code=MPV) TEST NOT PERFORMED fL 6.7-11.0 NEUTROPHIL % (test code=NT%) 79.8 % 39.0-69.0 IMMATURE GRANULOCYTE % (test code=IG%) 0.8 % 0.0-5.0 LYMPHOCYTE % (test code=LY%) 13.5 % 25.0-55.0 MONOCYTE % (test code=MO%) 5.6 % 0.0-10.0 EOSINOPHIL % (test code=EO%) 0.1 % 0.0-5.0 BASOPHIL % (test code=BA%) 0.2 % 0.0-1.0 NUCLEATED RBC % (test code=NRBC%) 0.0 % 0-0 NEUTROPHIL # (test code=NT#) 7.20 K/mm3 1.8-7.7 IMMATURE GRANULOCYTE # (test code=IG#) 0.07 x10 3/uL 0-0.03 LYMPHOCYTE # (test code=LY#) 1.22 K/mm3 1.0-5.0 MONOCYTE # (test code=MO#) 0.51 K/mm3 0-0.8 EOSINOPHIL # (test code=EO#) 0.01 K/mm3 0.0-0.5 BASOPHIL # (test code=BA#) 0.02 K/mm3 0.0-0.2 NUCLEATED RBC # (test code=NRBC#) 0.00 K/mm3 0.0-0.1 MANUAL DIFF REQUIRED (test code=MDIFF) NO, ONLY SCAN NEEDED DIFFERENTIAL [id number] 04:53:00* Test Item Value Reference Range Comments STAIN ACCEPTABILITY (test code=STN ACCEPTABLE) CABOT RINGS (test code=CAB) MORPHOLOGY COMMENT (test code=MOC) PLATELET ESTIMATE (test code=PLTEST) PLATELET MORPHOLOGY (test code=PLTMORPH) CBC W/AUTO [id number] 04:53:00* Test Item Value Reference Range Comments WHITE BLOOD CELL (test code=WBC) 9.0 K/mm3 4.5-12.5 RED BLOOD CELL (test code=RBC) 3.27 mill/mm3 3.7-5.2 HEMOGLOBIN (test code=HGB) 8.5 gram/dL 11.5-15.5 HEMATOCRIT (test code=HCT) 28.1 % 36.0-46.0 MEAN CELL VOLUME (test code=MCV) 85.9 fL 80-98 MEAN CELL HGB (test code=MCH) 26.0 picogram 27.0-33.0 MEAN CELL HGB CONCETRATION (test code=MCHC) 30.2 gram/dL 33.0-36.0 RED CELL DISTRIBUTION WIDTH (test code=RDW) 17.0 % 11.6-16.2 RED CELL DISTRIBUTION WIDTH SD (test code=RDW-SD) 52.9 fL 37.0-51.0 PLATELET COUNT (test code=PLT) 30 K/mm3 150-450 Results called to [id number] by V.LAB.ISRA 11/01/18 0452Critical results verified and read back by Nurse? Y MEAN PLATELET VOLUME (test code=MPV) TEST NOT PERFORMED fL 6.7-11.0 NEUTROPHIL % (test code=NT%) 79.8 % 39.0-69.0 IMMATURE GRANULOCYTE % (test code=IG%) 0.8 % 0.0-5.0 LYMPHOCYTE % (test code=LY%) 13.5 % 25.0-55.0 MONOCYTE % (test code=MO%) 5.6 % 0.0-10.0 EOSINOPHIL % (test code=EO%) 0.1 % 0.0-5.0 BASOPHIL % (test code=BA%) 0.2 % 0.0-1.0 NUCLEATED RBC % (test code=NRBC%) 0.0 % 0-0 NEUTROPHIL # (test code=NT#) 7.20 K/mm3 1.8-7.7 IMMATURE GRANULOCYTE # (test code=IG#) 0.07 x10 3/uL 0-0.03 LYMPHOCYTE # (test code=LY#) 1.22 K/mm3 1.0-5.0 MONOCYTE # (test code=MO#) 0.51 K/mm3 0-0.8 EOSINOPHIL # (test code=EO#) 0.01 K/mm3 0.0-0.5 BASOPHIL # (test code=BA#) 0.02 K/mm3 0.0-0.2 NUCLEATED RBC # (test code=NRBC#) 0.00 K/mm3 0.0-0.1 MANUAL DIFF REQUIRED (test code=MDIFF) NO, ONLY SCAN NEEDED DIFFERENTIAL [id number] 04:53:00* Test Item Value Reference Range Comments STAIN ACCEPTABILITY (test code=STN ACCEPTABLE) MORPHOLOGY COMMENT (test code=MOC) PLATELET ESTIMATE (test code=PLTEST) PLATELET MORPHOLOGY (test code=PLTMORPH) CBC W/AUTO [id number] 04:52:00* Test Item Value Reference Range Comments WHITE BLOOD CELL (test code=WBC) 9.0 K/mm3 4.5-12.5 RED BLOOD CELL (test code=RBC) 3.27 mill/mm3 3.7-5.2 HEMOGLOBIN (test code=HGB) 8.5 gram/dL 11.5-15.5 HEMATOCRIT (test code=HCT) 28.1 % 36.0-46.0 MEAN CELL VOLUME (test code=MCV) 85.9 fL 80-98 MEAN CELL HGB (test code=MCH) 26.0 picogram 27.0-33.0 MEAN CELL HGB CONCETRATION (test code=MCHC) 30.2 gram/dL 33.0-36.0 RED CELL DISTRIBUTION WIDTH (test code=RDW) 17.0 % 11.6-16.2 RED CELL DISTRIBUTION WIDTH SD (test code=RDW-SD) 52.9 fL 37.0-51.0 PLATELET COUNT (test code=PLT) 30 K/mm3 150-450 Results called to [id number] by MARIUM 11/01/18 0452Critical results verified and read back by Nurse? Y MEAN PLATELET VOLUME (test code=MPV) TEST NOT PERFORMED fL 6.7-11.0 NEUTROPHIL % (test code=NT%) 79.8 % 39.0-69.0 IMMATURE GRANULOCYTE % (test code=IG%) 0.8 % 0.0-5.0 LYMPHOCYTE % (test code=LY%) 13.5 % 25.0-55.0 MONOCYTE % (test code=MO%) 5.6 % 0.0-10.0 EOSINOPHIL % (test code=EO%) 0.1 % 0.0-5.0 BASOPHIL % (test code=BA%) 0.2 % 0.0-1.0 NUCLEATED RBC % (test code=NRBC%) 0.0 % 0-0 NEUTROPHIL # (test code=NT#) 7.20 K/mm3 1.8-7.7 IMMATURE GRANULOCYTE # (test code=IG#) 0.07 x10 3/uL 0-0.03 LYMPHOCYTE # (test code=LY#) 1.22 K/mm3 1.0-5.0 MONOCYTE # (test code=MO#) 0.51 K/mm3 0-0.8 EOSINOPHIL # (test code=EO#) 0.01 K/mm3 0.0-0.5 BASOPHIL # (test code=BA#) 0.02 K/mm3 0.0-0.2 NUCLEATED RBC # (test code=NRBC#) 0.00 K/mm3 0.0-0.1 MANUAL DIFF REQUIRED (test code=MDIFF) NO, ONLY SCAN NEEDED DIFFERENTIAL [id number] 04:52:00* Test Item Value Reference Range Comments STAIN ACCEPTABILITY (test code=STN ACCEPTABLE) CABOT RINGS (test code=CAB) MORPHOLOGY COMMENT (test code=MOC) PLATELET ESTIMATE (test code=PLTEST) PLATELET MORPHOLOGY (test code=PLTMORPH) CBC W/MANUAL [id number] 23:13:00* Test Item Value Reference Range Comments WHITE BLOOD CELL (test code=WBC) 10.7 K/mm3 4.5-12.5 RED BLOOD CELL (test code=RBC) 3.91 mill/mm3 3.7-5.2 HEMOGLOBIN (test code=HGB) 10.1 gram/dL 11.5-15.5 RESULTS CALLED TO [id number]/pyco V.LAB.[facility] 10/31/182240 HEMATOCRIT (test code=HCT) 34.0 % 36.0-46.0 RESULTS CALLED TO [id number]/pyco V.LAB.[facility] 10/31/182240 MEAN CELL VOLUME (test code=MCV) 87.0 fL 80-98 MEAN CELL HGB (test code=MCH) 25.8 picogram 27.0-33.0 MEAN CELL HGB CONCETRATION (test code=MCHC) 29.7 gram/dL 33.0-36.0 RED CELL DISTRIBUTION WIDTH (test code=RDW) 17.2 % 11.6-16.2 RED CELL DISTRIBUTION WIDTH SD (test code=RDW-SD) 53.7 fL 37.0-51.0 PLATELET COUNT (test code=PLT) 42 K/mm3 150-450 Results called to [employer]/[id number] by V.LAB.[facility] 10/31/189Critical results verified and read back by Nurse? Y MEAN PLATELET VOLUME (test code=MPV) 13.1 fL 6.7-11.0 IMMATURE GRANULOCYTE % (test code=IG%) 0.7 % 0.0-5.0 NUCLEATED RBC % (test code=NRBC%) 0.0 % 0-0 NEUTROPHIL # (test code=NT#) 6.38 K/mm3 1.8-7.7 IMMATURE GRANULOCYTE # (test code=IG#) 0.08 x10 3/uL 0-0.03 LYMPHOCYTE # (test code=LY#) 3.31 K/mm3 1.0-5.0 MONOCYTE # (test code=MO#) 0.81 K/mm3 0-0.8 EOSINOPHIL # (test code=EO#) 0.07 K/mm3 0.0-0.5 BASOPHIL # (test code=BA#) 0.03 K/mm3 0.0-0.2 NUCLEATED RBC # (test code=NRBC#) 0.00 K/mm3 0.0-0.1 MANUAL DIFF REQUIRED (test code=MDIFF) YES STAIN ACCEPTABILITY (test code=STN ACCEPTABLE) STAIN ACCEPTABLE TOTAL CELLS COUNTED (test code=TCC) 115 #CELLS SEGMENTED NEUTROPHILS (test code=SEG) 80.0 % 39-69 BAND NEUTROPHIL (test code=BAND) 0 % 0-10 LYMPHOCYTE (test code=LYMPH) 14.8 % 25-55 REACTIVE LYMPH (test code=RELYMPH) 0.8 % MONOCYTE (test code=MON) 3.5 % 0-10 EOSINOPHIL (test code=EOS) 0 % 0.0-5.0 BASOPHIL (test code=BASO) 0 % 0-1.0 METAMYELOCYTE (test code=META) 0.9 % 0-0 MYELOCYTE (test code=MYELO) 0 % 0.0-0.0 PROMYELOCYTE (test code=PROM) 0 % 0-0 HYPOCHROMIA (test code=HYPO) 1+ POIKILOCYTOSIS (test code=POIK) 1+ ANISOCYTOSIS (test code=ANISO) 2+ MACROCYTOSIS (test code=MACR) 2+ PLATELET ESTIMATE (test code=PLTEST) DECREASED PLATELET MORPHOLOGY (test code=PLTMORPH) NORMAL IMMATURE FORMS (test code=IMMAT) 0 % CBC W/MANUAL [id number] 22:45:00* Test Item Value Reference Range Comments WHITE BLOOD CELL (test code=WBC) 10.7 K/mm3 4.5-12.5 RED BLOOD CELL (test code=RBC) 3.91 mill/mm3 3.7-5.2 HEMOGLOBIN (test code=HGB) 10.1 gram/dL 11.5-15.5 RESULTS CALLED TO [id number]/LISABY V.LAB.[facility] 10/31/18 2241 HEMATOCRIT (test code=HCT) 34.0 % 36.0-46.0 RESULTS CALLED TO UEH1292/LISABY V.LAB.[facility] 10/31/18 2241 MEAN CELL VOLUME (test code=MCV) 87.0 fL 80-98 MEAN CELL HGB (test code=MCH) 25.8 picogram 27.0-33.0 MEAN CELL HGB CONCETRATION (test code=MCHC) 29.7 gram/dL 33.0-36.0 RED CELL DISTRIBUTION WIDTH (test code=RDW) 17.2 % 11.6-16.2 RED CELL DISTRIBUTION WIDTH SD (test code=RDW-SD) 53.7 fL 37.0-51.0 PLATELET COUNT (test code=PLT) 42 K/mm3 150-450 Results called to HARMAN/VAP3122 by [employer].LAB.[facility] 10/31/182238Critical results verified and read back by Nurse? Y MEAN PLATELET VOLUME (test code=MPV) 13.1 fL 6.7-11.0 IMMATURE GRANULOCYTE % (test code=IG%) 0.7 % 0.0-5.0 NUCLEATED RBC % (test code=NRBC%) 0.0 % 0-0 NEUTROPHIL # (test code=NT#) 6.38 K/mm3 1.8-7.7 IMMATURE GRANULOCYTE # (test code=IG#) 0.08 x10 3/uL 0-0.03 LYMPHOCYTE # (test code=LY#) 3.31 K/mm3 1.0-5.0 MONOCYTE # (test code=MO#) 0.81 K/mm3 0-0.8 EOSINOPHIL # (test code=EO#) 0.07 K/mm3 0.0-0.5 BASOPHIL # (test code=BA#) 0.03 K/mm3 0.0-0.2 NUCLEATED RBC # (test code=NRBC#) 0.00 K/mm3 0.0-0.1 MANUAL DIFF REQUIRED (test code=MDIFF) YES STAIN ACCEPTABILITY (test code=STN ACCEPTABLE) TOTAL CELLS COUNTED (test code=TCC) #CELLS SEGMENTED NEUTROPHILS (test code=SEG) % 39-69 LYMPHOCYTE (test code=LYMPH) % 25-55 MONOCYTE (test code=MON) % 0-10 MORPHOLOGY COMMENT (test code=MOC) PLATELET ESTIMATE (test code=PLTEST) PLATELET MORPHOLOGY (test code=PLTMORPH) CBC W/MANUAL [id number] 22:41:00* Test Item Value Reference Range Comments WHITE BLOOD CELL (test code=WBC) 10.7 K/mm3 4.5-12.5 RED BLOOD CELL (test code=RBC) 3.91 mill/mm3 3.7-5.2 HEMOGLOBIN (test code=HGB) 10.1 gram/dL 11.5-15.5 RESULTS CALLED TO QQC2782/PATRICK V.LAB.[facility] 10/31/182240 HEMATOCRIT (test code=HCT) 34.0 % 36.0-46.0 RESULTS CALLED TO [id number]/pyco V.[facility] 10/31/182240 MEAN CELL VOLUME (test code=MCV) 87.0 fL 80-98 MEAN CELL HGB (test code=MCH) 25.8 picogram 27.0-33.0 MEAN CELL HGB CONCETRATION (test code=MCHC) 29.7 gram/dL 33.0-36.0 RED CELL DISTRIBUTION WIDTH (test code=RDW) 17.2 % 11.6-16.2 RED CELL DISTRIBUTION WIDTH SD (test code=RDW-SD) 53.7 fL 37.0-51.0 PLATELET COUNT (test code=PLT) 42 K/mm3 150-450 Results called to HARMAN/[id number] by V.[facility] 10/31/182238Critical results verified and read back by Nurse? Y MEAN PLATELET VOLUME (test code=MPV) 13.1 fL 6.7-11.0 IMMATURE GRANULOCYTE % (test code=IG%) 0.7 % 0.0-5.0 NUCLEATED RBC % (test code=NRBC%) 0.0 % 0-0 NEUTROPHIL # (test code=NT#) 6.38 K/mm3 1.8-7.7 IMMATURE GRANULOCYTE # (test code=IG#) 0.08 x10 3/uL 0-0.03 LYMPHOCYTE # (test code=LY#) 3.31 K/mm3 1.0-5.0 MONOCYTE # (test code=MO#) 0.81 K/mm3 0-0.8 EOSINOPHIL # (test code=EO#) 0.07 K/mm3 0.0-0.5 BASOPHIL # (test code=BA#) 0.03 K/mm3 0.0-0.2 NUCLEATED RBC # (test code=NRBC#) 0.00 K/mm3 0.0-0.1 MANUAL DIFF REQUIRED (test code=MDIFF) YES STAIN ACCEPTABILITY (test code=STN ACCEPTABLE) TOTAL CELLS COUNTED (test code=TCC) #CELLS SEGMENTED NEUTROPHILS (test code=SEG) % 39-69 LYMPHOCYTE (test code=LYMPH) % 25-55 MONOCYTE (test code=MON) % 0-10 EOSINOPHIL (test code=EOS) % 0.0-5.0 CABOT RINGS (test code=CAB) MORPHOLOGY COMMENT (test code=MOC) PLATELET ESTIMATE (test code=PLTEST) PLATELET MORPHOLOGY (test code=PLTMORPH) CBC W/MANUAL [id number] 22:41:00* Test Item Value Reference Range Comments WHITE BLOOD CELL (test code=WBC) 10.7 K/mm3 4.5-12.5 RED BLOOD CELL (test code=RBC) 3.91 mill/mm3 3.7-5.2 HEMOGLOBIN (test code=HGB) 10.1 gram/dL 11.5-15.5 RESULTS CALLED TO [id number]/pyco V.[facility] 10/31/182240 HEMATOCRIT (test code=HCT) 34.0 % 36.0-46.0 RESULTS CALLED TO [employer]/py[employer] V.[facility] 10/31/18 224 MEAN CELL VOLUME (test code=MCV) 87.0 fL 80-98 MEAN CELL HGB (test code=MCH) 25.8 picogram 27.0-33.0 MEAN CELL HGB CONCETRATION (test code=MCHC) 29.7 gram/dL 33.0-36.0 RED CELL DISTRIBUTION WIDTH (test code=RDW) 17.2 % 11.6-16.2 RED CELL DISTRIBUTION WIDTH SD (test code=RDW-SD) 53.7 fL 37.0-51.0 PLATELET COUNT (test code=PLT) 42 K/mm3 150-450 Results called to [employer]/[id number] by [facility] 10/31/18 2239Critical results verified and read back by Nurse? Y MEAN PLATELET VOLUME (test code=MPV) 13.1 fL 6.7-11.0 IMMATURE GRANULOCYTE % (test code=IG%) 0.7 % 0.0-5.0 NUCLEATED RBC % (test code=NRBC%) 0.0 % 0-0 NEUTROPHIL # (test code=NT#) 6.38 K/mm3 1.8-7.7 IMMATURE GRANULOCYTE # (test code=IG#) 0.08 x10 3/uL 0-0.03 LYMPHOCYTE # (test code=LY#) 3.31 K/mm3 1.0-5.0 MONOCYTE # (test code=MO#) 0.81 K/mm3 0-0.8 EOSINOPHIL # (test code=EO#) 0.07 K/mm3 0.0-0.5 BASOPHIL # (test code=BA#) 0.03 K/mm3 0.0-0.2 NUCLEATED RBC # (test code=NRBC#) 0.00 K/mm3 0.0-0.1 MANUAL DIFF REQUIRED (test code=MDIFF) YES STAIN ACCEPTABILITY (test code=STN ACCEPTABLE) TOTAL CELLS COUNTED (test code=TCC) #CELLS SEGMENTED NEUTROPHILS (test code=SEG) % 39-69 LYMPHOCYTE (test code=LYMPH) % 25-55 MONOCYTE (test code=MON) % 0-10 EOSINOPHIL (test code=EOS) % 0.0-5.0 CABOT RINGS (test code=CAB) MORPHOLOGY COMMENT (test code=MOC) PLATELET ESTIMATE (test code=PLTEST) PLATELET MORPHOLOGY (test code=PLTMORPH) CBC W/MANUAL [id number] 22:41:00* Test Item Value Reference Range Comments WHITE BLOOD CELL (test code=WBC) 10.7 K/mm3 4.5-12.5 RED BLOOD CELL (test code=RBC) 3.91 mill/mm3 3.7-5.2 HEMOGLOBIN (test code=HGB) 10.1 gram/dL 11.5-15.5 RESULTS CALLED TO [id number]/[employer] [facility] 10/31/18 2241 HEMATOCRIT (test code=HCT) 34.0 % 36.0-46.0 RESULTS CALLED TO [id number]/[employer] [facility] 10/31/18 2241 MEAN CELL VOLUME (test code=MCV) 87.0 fL 80-98 MEAN CELL HGB (test code=MCH) 25.8 picogram 27.0-33.0 MEAN CELL HGB CONCETRATION (test code=MCHC) 29.7 gram/dL 33.0-36.0 RED CELL DISTRIBUTION WIDTH (test code=RDW) 17.2 % 11.6-16.2 RED CELL DISTRIBUTION WIDTH SD (test code=RDW-SD) 53.7 fL 37.0-51.0 PLATELET COUNT (test code=PLT) 42 K/mm3 150-450 Results called to HARMAN/[id number] by [facility] 10/31/182238Critical results verified and read back by Nurse? Y MEAN PLATELET VOLUME (test code=MPV) 13.1 fL 6.7-11.0 IMMATURE GRANULOCYTE % (test code=IG%) 0.7 % 0.0-5.0 NUCLEATED RBC % (test code=NRBC%) 0.0 % 0-0 NEUTROPHIL # (test code=NT#) 6.38 K/mm3 1.8-7.7 IMMATURE GRANULOCYTE # (test code=IG#) 0.08 x10 3/uL 0-0.03 LYMPHOCYTE # (test code=LY#) 3.31 K/mm3 1.0-5.0 MONOCYTE # (test code=MO#) 0.81 K/mm3 0-0.8 EOSINOPHIL # (test code=EO#) 0.07 K/mm3 0.0-0.5 BASOPHIL # (test code=BA#) 0.03 K/mm3 0.0-0.2 NUCLEATED RBC # (test code=NRBC#) 0.00 K/mm3 0.0-0.1 MANUAL DIFF REQUIRED (test code=MDIFF) YES STAIN ACCEPTABILITY (test code=STN ACCEPTABLE) TOTAL CELLS COUNTED (test code=TCC) #CELLS SEGMENTED NEUTROPHILS (test code=SEG) % 39-69 LYMPHOCYTE (test code=LYMPH) % 25-55 MONOCYTE (test code=MON) % 0-10 EOSINOPHIL (test code=EOS) % 0.0-5.0 MORPHOLOGY COMMENT (test code=MOC) PLATELET ESTIMATE (test code=PLTEST) PLATELET MORPHOLOGY (test code=PLTMORPH) CBC W/MANUAL [id number] 22:41:00* Test Item Value Reference Range Comments WHITE BLOOD CELL (test code=WBC) 10.7 K/mm3 4.5-12.5 RED BLOOD CELL (test code=RBC) 3.91 mill/mm3 3.7-5.2 HEMOGLOBIN (test code=HGB) 10.1 gram/dL 11.5-15.5 RESULTS CALLED TO [id number]/LISABY V.[facility] 10/31/18 224 HEMATOCRIT (test code=HCT) 34.0 % 36.0-46.0 RESULTS CALLED TO [id number]/LISABY [facility] 10/31/18 2241 MEAN CELL VOLUME (test code=MCV) 87.0 fL 80-98 MEAN CELL HGB (test code=MCH) 25.8 picogram 27.0-33.0 MEAN CELL HGB CONCETRATION (test code=MCHC) 29.7 gram/dL 33.0-36.0 RED CELL DISTRIBUTION WIDTH (test code=RDW) 17.2 % 11.6-16.2 RED CELL DISTRIBUTION WIDTH SD (test code=RDW-SD) 53.7 fL 37.0-51.0 PLATELET COUNT (test code=PLT) 42 K/mm3 150-450 Results called to HARMAN/[id number] by [email or web address] 10/31/18 2239Critical results verified and read back by Nurse? Y MEAN PLATELET VOLUME (test code=MPV) 13.1 fL 6.7-11.0 IMMATURE GRANULOCYTE % (test code=IG%) 0.7 % 0.0-5.0 NUCLEATED RBC % (test code=NRBC%) 0.0 % 0-0 NEUTROPHIL # (test code=NT#) 6.38 K/mm3 1.8-7.7 IMMATURE GRANULOCYTE # (test code=IG#) 0.08 x10 3/uL 0-0.03 LYMPHOCYTE # (test code=LY#) 3.31 K/mm3 1.0-5.0 MONOCYTE # (test code=MO#) 0.81 K/mm3 0-0.8 EOSINOPHIL # (test code=EO#) 0.07 K/mm3 0.0-0.5 BASOPHIL # (test code=BA#) 0.03 K/mm3 0.0-0.2 NUCLEATED RBC # (test code=NRBC#) 0.00 K/mm3 0.0-0.1 MANUAL DIFF REQUIRED (test code=MDIFF) YES STAIN ACCEPTABILITY (test code=STN ACCEPTABLE) TOTAL CELLS COUNTED (test code=TCC) #CELLS SEGMENTED NEUTROPHILS (test code=SEG) % 39-69 LYMPHOCYTE (test code=LYMPH) % 25-55 MONOCYTE (test code=MON) % 0-10 EOSINOPHIL (test code=EOS) % 0.0-5.0 CABOT RINGS (test code=CAB) MORPHOLOGY COMMENT (test code=MOC) PLATELET ESTIMATE (test code=PLTEST) PLATELET MORPHOLOGY (test code=PLTMORPH) - XR CHEST 1 [id number] 22:20:00 FAX: Vignesh Howell [place]: B St: ADM FAX: Gray Luong MD Name: SIOBHAN BARBOSA [facility] : 1965 Age/S: 53/F [place] adrianna Unit #: [id number] Loc: V[address] [place] [address] Phys: Vignesh Howell Acct: [id number] Dis Date: Status: ADM IN PHONE #: [phone] Exam Date: 10/31/20182217 FAX #: [phone] Reason: PT REMOVED CENTRAL CATHETER EXAMS: CPT CODE: [id number] XR CHEST 1 V 15919 REASON FOR EXAM: PT REMOVED CENTRAL CATHETER EXAM ORDER DATE: 10/31/2018 10:00 PM Ordering MConrado: NISHANT Velez PROCEDURE: - XR CHEST 1 V COMPARISON: 10/31/2018 at 5:34 AM FINDINGS: Portable AP frontal view of the chest obtained at 10:11 PM shows diffuse airspace opacities. The heart size is minimally enlarged. Pulmonary vasculatures are minimally congested. IMPRESSION: Congestive heart failure with bone marrow edema and small bilateral pleural effusions. Previously seen right IJ dialysis catheter has been removed at 2220 Reported and signed by: Jewel Reyez M.D. CC: Vignesh Howell; Gray Knott Technologist: EVITA HALE; RT Sadie(R Trnscrd Date/Time/By: 10/31/2018 (222) : By: Mark Orig Print D/T: S: 10/31/2018 (3567) PAGE 1 Signed Report CBC W/MANUAL [id number] 09:23:00* Test Item Value Reference Range Comments WHITE BLOOD CELL (test code=WBC) 4.6 K/mm3 4.5-12.5 RED BLOOD CELL (test code=RBC) 3.45 mill/mm3 3.7-5.2 HEMOGLOBIN (test code=HGB) 9.2 gram/dL 11.5-15.5 HEMATOCRIT (test code=HCT) 29.8 % 36.0-46.0 MEAN CELL VOLUME (test code=MCV) 86.4 fL 80-98 MEAN CELL HGB (test code=MCH) 26.7 picogram 27.0-33.0 MEAN CELL HGB CONCETRATION (test code=MCHC) 30.9 gram/dL 33.0-36.0 RED CELL DISTRIBUTION WIDTH (test code=RDW) 16.9 % 11.6-16.2 RED CELL DISTRIBUTION WIDTH SD (test code=RDW-SD) 51.7 fL 37.0-51.0 PLATELET COUNT (test code=PLT) 31 K/mm3 150-450 Results called to [id number] by MYAH 10/31/18 0711Critical results verified and read back by Nurse? Y MEAN PLATELET VOLUME (test code=MPV) 12.7 fL 6.7-11.0 IMMATURE GRANULOCYTE % (test code=IG%) 0.9 % 0.0-5.0 NUCLEATED RBC % (test code=NRBC%) 0.0 % 0-0 NEUTROPHIL # (test code=NT#) 3.24 K/mm3 1.8-7.7 IMMATURE GRANULOCYTE # (test code=IG#) 0.04 x10 3/uL 0-0.03 LYMPHOCYTE # (test code=LY#) 0.95 K/mm3 1.0-5.0 MONOCYTE # (test code=MO#) 0.37 K/mm3 0-0.8 EOSINOPHIL # (test code=EO#) 0.02 K/mm3 0.0-0.5 BASOPHIL # (test code=BA#) 0.01 K/mm3 0.0-0.2 NUCLEATED RBC # (test code=NRBC#) 0.00 K/mm3 0.0-0.1 MANUAL DIFF REQUIRED (test code=MDIFF) YES STAIN ACCEPTABILITY (test code=STN ACCEPTABLE) STAIN ACCEPTABLE TOTAL CELLS COUNTED (test code=TCC) 114 #CELLS SEGMENTED NEUTROPHILS (test code=SEG) 78 % 39-69 BAND NEUTROPHIL (test code=BAND) 1 % 0-10 LYMPHOCYTE (test code=LYMPH) 12 % 25-55 REACTIVE LYMPH (test code=RELYMPH) 0 % MONOCYTE (test code=MON) 8 % 0-10 EOSINOPHIL (test code=EOS) 1 % 0.0-5.0 BASOPHIL (test code=BASO) 0 % 0-1.0 METAMYELOCYTE (test code=META) 0 % 0-0 MYELOCYTE (test code=MYELO) 0 % 0.0-0.0 PROMYELOCYTE (test code=PROM) 0 % 0-0 POIKILOCYTOSIS (test code=POIK) 1+ ANISOCYTOSIS (test code=ANISO) 1+ TARGET CELLS (test code=TGT) 1+ PLATELET ESTIMATE (test code=PLTEST) DECREASED PLATELET MORPHOLOGY (test code=PLTMORPH) NORMAL IMMATURE FORMS (test code=IMMAT) 0 % - XR CHEST 1 [id number] 07:54:00 FAX: Sarita Macedo MD [place]: B St: ADM FAX: Gray Luong MD Name: SIOBHAN BARBOSA [facility] : 1965 Age/S: 53/F [address] [facility] Unit #: [id number] Loc: [address] [place] [id number] Phys: Sarita Macedo MD Acct: [id number] Dis Date: Status: ADM IN PHONE #: [phone] Exam Date: 10/31/2018 0537 FAX #: [phone] Reason: intubated/vented EXAMS: CPT CODE: [id number] XR CHEST 1 V 02219 EXAM: Chest x-ray, one view; INFORMATION: Septic shock; IMPRESSION: 1. The heart has decreased in size. Its size is within upper limits of normal. 2. Patchy densities in the left lung base consistent with an infiltrate. at 0754 Reported and signed by: Jameel Alvarez M.D. CC: Sarita Macedo MD; Gray Knott Technologist: HARLEY TURNER JR; Yesica RETANA(R) Trnscrd Date/Time/By: 10/31/2018 (0754) : By: [email or web address] Orig Print D/T: S: 10/31/2018 (0755) PAGE 1 Signed Report COMPREHENSIVE METABOLIC PANEL 2018-10-31 07:50:00* Test Item Value Reference Range Comments SODIUM (test code=NA) 142 mmol/L 136-145 POTASSIUM (test code=K) 3.3 mmol/L 3.5-5.1 CHLORIDE (test code=CL) 108.0 mmol/L 98-107 CARBON DIOXIDE (test code=CO2) 24.0 mmol/L 21-32 ANION GAP (test code=GAP) 13.3 10-20 GLUCOSE (test code=GLU) 86 mg/dL 74-106 BLOOD UREA NITROGEN (test code=BUN) 28 mg/dL 7-18 GLOMERULAR FILTRATION RATE (test code=GFR) 19 mL/min >=60 Estimated GFR by using Modified MDRD formula.Chronic kidney disease is defined as either kidney damageor GFR <60 mL/min/1.73 m2 for >3 months. CREATININE (test code=CREAT) 2.60 mg/dL 0.55-1.02 Note change in reference range due to change in reagent. BUN/CREATININE RATIO (test code=BUN/CREA) 10.8 10-20 TOTAL PROTEIN (test code=PROT) 5.5 gram/dL 6.4-8.2 ALBUMIN (test code=ALB) 2.1 g/dL 3.4-5.0 GLOBULIN (test code=GLOB) 3.4 gram/dL 2.7-4.2 ALBUMIN/GLOBULIN RATIO (test code=A/G) 0.6 0.75-1.50 CALCIUM (test code=CA) 8.8 mg/dL 8.5-10.1 BILIRUBIN TOTAL (test code=BILT) 2.20 mg/dL 0.0-1.0 SGOT/AST (test code=AST) 17 IUnit/L 15-37 SGPT/ALT (test code=ALT) 19 IUnit/L 12-78 ALKALINE PHOSPHATASE TOTAL (test code=ALKP) 252 IUnit/L 45-117 Note change in reference range due to change in reagent. [id number] 07:50:00* Test Item Value Reference Range Comments PHOSPHORUS (test code=PHOS) 4.7 mg/dL 2.5-4.9 [id number] 07:50:00* Test Item Value Reference Range Comments MAGNESIUM (test code=MAG) 2.1 mg/dL 1.8-2.4 COMPREHENSIVE METABOLIC [id number] 07:38:00* Test Item Value Reference Range Comments SODIUM (test code=NA) 142 mmol/L 136-145 POTASSIUM (test code=K) 3.3 mmol/L 3.5-5.1 CHLORIDE (test code=CL) 108.0 mmol/L 98-107 CARBON DIOXIDE (test code=CO2) mmol/L 21-32 ANION GAP (test code=GAP) 10-20 GLUCOSE (test code=GLU) mg/dL 74-106 BLOOD UREA NITROGEN (test code=BUN) mg/dL 7-18 GLOMERULAR FILTRATION RATE (test code=GFR) mL/min >=60 CREATININE (test code=CREAT) mg/dL 0.55-1.02 BUN/CREATININE RATIO (test code=BUN/CREA) 10-20 TOTAL PROTEIN (test code=PROT) gram/dL 6.4-8.2 ALBUMIN (test code=ALB) g/dL 3.4-5.0 GLOBULIN (test code=GLOB) gram/dL 2.7-4.2 ALBUMIN/GLOBULIN RATIO (test code=A/G) 0.75-1.50 CALCIUM (test code=CA) mg/dL 8.5-10.1 BILIRUBIN TOTAL (test code=BILT) mg/dL 0.0-1.0 SGOT/AST (test code=AST) IUnit/L 15-37 SGPT/ALT (test code=ALT) IUnit/L 12-78 ALKALINE PHOSPHATASE TOTAL (test code=ALKP) IUnit/L 45-117 [id number] 07:38:00* Test Item Value Reference Range Comments PHOSPHORUS (test code=PHOS) mg/dL 2.5-4.9 [id number] 07:38:00* Test Item Value Reference Range Comments MAGNESIUM (test code=MAG) mg/dL 1.8-2.4 CBC W/MANUAL [id number] 07:11:00* Test Item Value Reference Range Comments WHITE BLOOD CELL (test code=WBC) 4.6 K/mm3 4.5-12.5 RED BLOOD CELL (test code=RBC) 3.45 mill/mm3 3.7-5.2 HEMOGLOBIN (test code=HGB) 9.2 gram/dL 11.5-15.5 HEMATOCRIT (test code=HCT) 29.8 % 36.0-46.0 MEAN CELL VOLUME (test code=MCV) 86.4 fL 80-98 MEAN CELL HGB (test code=MCH) 26.7 picogram 27.0-33.0 MEAN CELL HGB CONCETRATION (test code=MCHC) 30.9 gram/dL 33.0-36.0 RED CELL DISTRIBUTION WIDTH (test code=RDW) 16.9 % 11.6-16.2 RED CELL DISTRIBUTION WIDTH SD (test code=RDW-SD) 51.7 fL 37.0-51.0 PLATELET COUNT (test code=PLT) 31 K/mm3 150-450 Results called to [id number] by MYAH 10/31/18 0711Critical results verified and read back by Nurse? Y MEAN PLATELET VOLUME (test code=MPV) 12.7 fL 6.7-11.0 IMMATURE GRANULOCYTE % (test code=IG%) 0.9 % 0.0-5.0 NUCLEATED RBC % (test code=NRBC%) 0.0 % 0-0 NEUTROPHIL # (test code=NT#) 3.24 K/mm3 1.8-7.7 IMMATURE GRANULOCYTE # (test code=IG#) 0.04 x10 3/uL 0-0.03 LYMPHOCYTE # (test code=LY#) 0.95 K/mm3 1.0-5.0 MONOCYTE # (test code=MO#) 0.37 K/mm3 0-0.8 EOSINOPHIL # (test code=EO#) 0.02 K/mm3 0.0-0.5 BASOPHIL # (test code=BA#) 0.01 K/mm3 0.0-0.2 NUCLEATED RBC # (test code=NRBC#) 0.00 K/mm3 0.0-0.1 MANUAL DIFF REQUIRED (test code=MDIFF) YES STAIN ACCEPTABILITY (test code=STN ACCEPTABLE) TOTAL CELLS COUNTED (test code=TCC) #CELLS SEGMENTED NEUTROPHILS (test code=SEG) % 39-69 LYMPHOCYTE (test code=LYMPH) % 25-55 MONOCYTE (test code=MON) % 0-10 EOSINOPHIL (test code=EOS) % 0.0-5.0 CABOT RINGS (test code=CAB) MORPHOLOGY COMMENT (test code=MOC) PLATELET ESTIMATE (test code=PLTEST) PLATELET MORPHOLOGY (test code=PLTMORPH) CBC W/MANUAL [id number] 07:11:00* Test Item Value Reference Range Comments WHITE BLOOD CELL (test code=WBC) 4.6 K/mm3 4.5-12.5 RED BLOOD CELL (test code=RBC) 3.45 mill/mm3 3.7-5.2 HEMOGLOBIN (test code=HGB) 9.2 gram/dL 11.5-15.5 HEMATOCRIT (test code=HCT) 29.8 % 36.0-46.0 MEAN CELL VOLUME (test code=MCV) 86.4 fL 80-98 MEAN CELL HGB (test code=MCH) 26.7 picogram 27.0-33.0 MEAN CELL HGB CONCETRATION (test code=MCHC) 30.9 gram/dL 33.0-36.0 RED CELL DISTRIBUTION WIDTH (test code=RDW) 16.9 % 11.6-16.2 RED CELL DISTRIBUTION WIDTH SD (test code=RDW-SD) 51.7 fL 37.0-51.0 PLATELET COUNT (test code=PLT) 31 K/mm3 150-450 Results called to [id number] by MYAH 10/31/18 0711Critical results verified and read back by Nurse? Y MEAN PLATELET VOLUME (test code=MPV) 12.7 fL 6.7-11.0 IMMATURE GRANULOCYTE % (test code=IG%) 0.9 % 0.0-5.0 NUCLEATED RBC % (test code=NRBC%) 0.0 % 0-0 NEUTROPHIL # (test code=NT#) 3.24 K/mm3 1.8-7.7 IMMATURE GRANULOCYTE # (test code=IG#) 0.04 x10 3/uL 0-0.03 LYMPHOCYTE # (test code=LY#) 0.95 K/mm3 1.0-5.0 MONOCYTE # (test code=MO#) 0.37 K/mm3 0-0.8 EOSINOPHIL # (test code=EO#) 0.02 K/mm3 0.0-0.5 BASOPHIL # (test code=BA#) 0.01 K/mm3 0.0-0.2 NUCLEATED RBC # (test code=NRBC#) 0.00 K/mm3 0.0-0.1 MANUAL DIFF REQUIRED (test code=MDIFF) YES STAIN ACCEPTABILITY (test code=STN ACCEPTABLE) TOTAL CELLS COUNTED (test code=TCC) #CELLS SEGMENTED NEUTROPHILS (test code=SEG) % 39-69 LYMPHOCYTE (test code=LYMPH) % 25-55 MONOCYTE (test code=MON) % 0-10 EOSINOPHIL (test code=EOS) % 0.0-5.0 CABOT RINGS (test code=CAB) MORPHOLOGY COMMENT (test code=MOC) PLATELET ESTIMATE (test code=PLTEST) PLATELET MORPHOLOGY (test code=PLTMORPH) CBC W/MANUAL [id number] 07:11:00* Test Item Value Reference Range Comments WHITE BLOOD CELL (test code=WBC) 4.6 K/mm3 4.5-12.5 RED BLOOD CELL (test code=RBC) 3.45 mill/mm3 3.7-5.2 HEMOGLOBIN (test code=HGB) 9.2 gram/dL 11.5-15.5 HEMATOCRIT (test code=HCT) 29.8 % 36.0-46.0 MEAN CELL VOLUME (test code=MCV) 86.4 fL 80-98 MEAN CELL HGB (test code=MCH) 26.7 picogram 27.0-33.0 MEAN CELL HGB CONCETRATION (test code=MCHC) 30.9 gram/dL 33.0-36.0 RED CELL DISTRIBUTION WIDTH (test code=RDW) 16.9 % 11.6-16.2 RED CELL DISTRIBUTION WIDTH SD (test code=RDW-SD) 51.7 fL 37.0-51.0 PLATELET COUNT (test code=PLT) 31 K/mm3 150-450 Results called to [id number] by MYAH 10/31/18 0711Critical results verified and read back by Nurse? Y MEAN PLATELET VOLUME (test code=MPV) 12.7 fL 6.7-11.0 IMMATURE GRANULOCYTE % (test code=IG%) 0.9 % 0.0-5.0 NUCLEATED RBC % (test code=NRBC%) 0.0 % 0-0 NEUTROPHIL # (test code=NT#) 3.24 K/mm3 1.8-7.7 IMMATURE GRANULOCYTE # (test code=IG#) 0.04 x10 3/uL 0-0.03 LYMPHOCYTE # (test code=LY#) 0.95 K/mm3 1.0-5.0 MONOCYTE # (test code=MO#) 0.37 K/mm3 0-0.8 EOSINOPHIL # (test code=EO#) 0.02 K/mm3 0.0-0.5 BASOPHIL # (test code=BA#) 0.01 K/mm3 0.0-0.2 NUCLEATED RBC # (test code=NRBC#) 0.00 K/mm3 0.0-0.1 MANUAL DIFF REQUIRED (test code=MDIFF) YES STAIN ACCEPTABILITY (test code=STN ACCEPTABLE) TOTAL CELLS COUNTED (test code=TCC) #CELLS SEGMENTED NEUTROPHILS (test code=SEG) % 39-69 LYMPHOCYTE (test code=LYMPH) % 25-55 MONOCYTE (test code=MON) % 0-10 EOSINOPHIL (test code=EOS) % 0.0-5.0 MORPHOLOGY COMMENT (test code=MOC) PLATELET ESTIMATE (test code=PLTEST) PLATELET MORPHOLOGY (test code=PLTMORPH) CBC W/MANUAL [id number] 07:11:00* Test Item Value Reference Range Comments WHITE BLOOD CELL (test code=WBC) 4.6 K/mm3 4.5-12.5 RED BLOOD CELL (test code=RBC) 3.45 mill/mm3 3.7-5.2 HEMOGLOBIN (test code=HGB) 9.2 gram/dL 11.5-15.5 HEMATOCRIT (test code=HCT) 29.8 % 36.0-46.0 MEAN CELL VOLUME (test code=MCV) 86.4 fL 80-98 MEAN CELL HGB (test code=MCH) 26.7 picogram 27.0-33.0 MEAN CELL HGB CONCETRATION (test code=MCHC) 30.9 gram/dL 33.0-36.0 RED CELL DISTRIBUTION WIDTH (test code=RDW) 16.9 % 11.6-16.2 RED CELL DISTRIBUTION WIDTH SD (test code=RDW-SD) 51.7 fL 37.0-51.0 PLATELET COUNT (test code=PLT) 31 K/mm3 150-450 Results called to [id number] by MYAH 10/31/18 0711Critical results verified and read back by Nurse? Y MEAN PLATELET VOLUME (test code=MPV) 12.7 fL 6.7-11.0 IMMATURE GRANULOCYTE % (test code=IG%) 0.9 % 0.0-5.0 NUCLEATED RBC % (test code=NRBC%) 0.0 % 0-0 NEUTROPHIL # (test code=NT#) 3.24 K/mm3 1.8-7.7 IMMATURE GRANULOCYTE # (test code=IG#) 0.04 x10 3/uL 0-0.03 LYMPHOCYTE # (test code=LY#) 0.95 K/mm3 1.0-5.0 MONOCYTE # (test code=MO#) 0.37 K/mm3 0-0.8 EOSINOPHIL # (test code=EO#) 0.02 K/mm3 0.0-0.5 BASOPHIL # (test code=BA#) 0.01 K/mm3 0.0-0.2 NUCLEATED RBC # (test code=NRBC#) 0.00 K/mm3 0.0-0.1 MANUAL DIFF REQUIRED (test code=MDIFF) YES STAIN ACCEPTABILITY (test code=STN ACCEPTABLE) TOTAL CELLS COUNTED (test code=TCC) #CELLS SEGMENTED NEUTROPHILS (test code=SEG) % 39-69 LYMPHOCYTE (test code=LYMPH) % 25-55 MONOCYTE (test code=MON) % 0-10 MORPHOLOGY COMMENT (test code=MOC) PLATELET ESTIMATE (test code=PLTEST) PLATELET MORPHOLOGY (test code=PLTMORPH) CBC W/MANUAL [id number] 07:11:00* Test Item Value Reference Range Comments WHITE BLOOD CELL (test code=WBC) 4.6 K/mm3 4.5-12.5 RED BLOOD CELL (test code=RBC) 3.45 mill/mm3 3.7-5.2 HEMOGLOBIN (test code=HGB) 9.2 gram/dL 11.5-15.5 HEMATOCRIT (test code=HCT) 29.8 % 36.0-46.0 MEAN CELL VOLUME (test code=MCV) 86.4 fL 80-98 MEAN CELL HGB (test code=MCH) 26.7 picogram 27.0-33.0 MEAN CELL HGB CONCETRATION (test code=MCHC) 30.9 gram/dL 33.0-36.0 RED CELL DISTRIBUTION WIDTH (test code=RDW) 16.9 % 11.6-16.2 RED CELL DISTRIBUTION WIDTH SD (test code=RDW-SD) 51.7 fL 37.0-51.0 PLATELET COUNT (test code=PLT) 31 K/mm3 150-450 Results called to [id number] by MYAH 10/31/18 0711Critical results verified and read back by Nurse? Y MEAN PLATELET VOLUME (test code=MPV) 12.7 fL 6.7-11.0 IMMATURE GRANULOCYTE % (test code=IG%) 0.9 % 0.0-5.0 NUCLEATED RBC % (test code=NRBC%) 0.0 % 0-0 NEUTROPHIL # (test code=NT#) 3.24 K/mm3 1.8-7.7 IMMATURE GRANULOCYTE # (test code=IG#) 0.04 x10 3/uL 0-0.03 LYMPHOCYTE # (test code=LY#) 0.95 K/mm3 1.0-5.0 MONOCYTE # (test code=MO#) 0.37 K/mm3 0-0.8 EOSINOPHIL # (test code=EO#) 0.02 K/mm3 0.0-0.5 BASOPHIL # (test code=BA#) 0.01 K/mm3 0.0-0.2 NUCLEATED RBC # (test code=NRBC#) 0.00 K/mm3 0.0-0.1 MANUAL DIFF REQUIRED (test code=MDIFF) YES STAIN ACCEPTABILITY (test code=STN ACCEPTABLE) TOTAL CELLS COUNTED (test code=TCC) #CELLS SEGMENTED NEUTROPHILS (test code=SEG) % 39-69 LYMPHOCYTE (test code=LYMPH) % 25-55 MONOCYTE (test code=MON) % 0-10 EOSINOPHIL (test code=EOS) % 0.0-5.0 CABOT RINGS (test code=CAB) MORPHOLOGY COMMENT (test code=MOC) PLATELET ESTIMATE (test code=PLTEST) PLATELET MORPHOLOGY (test code=PLTMORPH) [id number] 16:45:00* Test Item Value Reference Range Comments GLUBED (test code=GLUBED) 84 mg/dL 74-106 [facility] [id number] 08:24:00* Test Item Value Reference Range Comments GLUBED (test code=GLUBED) 64 mg/dL 74-106 Performed by certified transit mixer operator [facility] - XR CHEST 1 [id number] 07:30:00 FAX: Sarita Macedo MD [place]: St: ADM FAX: Gray Luong MD Name: SIOBHAN BARBOSA [facility] : 1965 Age/S: 53/F [address] [facility] Unit #: [id number] Loc: [address] [address] Phys: Sarita Macedo MD Acct: [id number] Dis Date: Status: ADM IN PHONE #: [phone] Exam Date: 10/30/2018527 FAX #: [phone] Reason: intubated/vented EXAMS: CPT CODE: [id number] XR CHEST 1 V 74352 CLINICAL HISTORY: intubated/vented; septic shock TECHNIQUE: AP chest x-ray COMPARISON: Previous day. IMPRESSION: No significant interval change. Small bilateral pleural effusion with basilar atelectasis. Mild cardiomegaly. Right hemodialysis catheter. at 0730 Reported and signed by: Nguyen Krishna D.O. CC: Sarita Macedo MD; Gray Knott Technologist: RT KIANA(R); Cathi Brock Trnscrd Date/Time/By: 10/30/2018 (5330) : By: [email or web address] Orig Print D/T: S: 10/30/2018 (3892) PAGE 1 Signed Report CBC W/MANUAL [id number] 06:24:00* Test Item Value Reference Range Comments WHITE BLOOD CELL (test code=WBC) 3.5 K/mm3 4.5-12.5 RED BLOOD CELL (test code=RBC) 3.02 mill/mm3 3.7-5.2 HEMOGLOBIN (test code=HGB) 7.9 gram/dL 11.5-15.5 HEMATOCRIT (test code=HCT) 26.8 % 36.0-46.0 MEAN CELL VOLUME (test code=MCV) 88.7 fL 80-98 MEAN CELL HGB (test code=MCH) 26.2 picogram 27.0-33.0 MEAN CELL HGB CONCETRATION (test code=MCHC) 29.5 gram/dL 33.0-36.0 RED CELL DISTRIBUTION WIDTH (test code=RDW) 16.4 % 11.6-16.2 RED CELL DISTRIBUTION WIDTH SD (test code=RDW-SD) 51.9 fL 37.0-51.0 PLATELET COUNT (test code=PLT) 15 K/mm3 150-450 Results called to [id number] by MARIUM 10/30/18 0549Critical results verified and read back by Nurse? Y MEAN PLATELET VOLUME (test code=MPV) TEST NOT PERFORMED fL 6.7-11.0 IMMATURE GRANULOCYTE % (test code=IG%) 0.6 % 0.0-5.0 NUCLEATED RBC % (test code=NRBC%) 0.0 % 0-0 NEUTROPHIL # (test code=NT#) 2.29 K/mm3 1.8-7.7 IMMATURE GRANULOCYTE # (test code=IG#) 0.02 x10 3/uL 0-0.03 LYMPHOCYTE # (test code=LY#) 0.84 K/mm3 1.0-5.0 MONOCYTE # (test code=MO#) 0.26 K/mm3 0-0.8 EOSINOPHIL # (test code=EO#) 0.04 K/mm3 0.0-0.5 BASOPHIL # (test code=BA#) 0.01 K/mm3 0.0-0.2 NUCLEATED RBC # (test code=NRBC#) 0.00 K/mm3 0.0-0.1 MANUAL DIFF REQUIRED (test code=MDIFF) YES STAIN ACCEPTABILITY (test code=STN ACCEPTABLE) STAIN ACCEPTABLE TOTAL CELLS COUNTED (test code=TCC) 115 #CELLS SEGMENTED NEUTROPHILS (test code=SEG) 79.1 % 39-69 BAND NEUTROPHIL (test code=BAND) 0 % 0-10 LYMPHOCYTE (test code=LYMPH) 14.8 % 25-55 REACTIVE LYMPH (test code=RELYMPH) 0 % MONOCYTE (test code=MON) 6.1 % 0-10 EOSINOPHIL (test code=EOS) 0 % 0.0-5.0 BASOPHIL (test code=BASO) 0 % 0-1.0 METAMYELOCYTE (test code=META) 0 % 0-0 MYELOCYTE (test code=MYELO) 0 % 0.0-0.0 PROMYELOCYTE (test code=PROM) 0 % 0-0 POIKILOCYTOSIS (test code=POIK) 1+ ANISOCYTOSIS (test code=ANISO) 1+ PLATELET ESTIMATE (test code=PLTEST) DECREASED PLATELET MORPHOLOGY (test code=PLTMORPH) NORMAL IMMATURE FORMS (test code=IMMAT) 0 % COMPREHENSIVE METABOLIC [id number] 06:16:00* Test Item Value Reference Range Comments SODIUM (test code=NA) 141 mmol/L 136-145 POTASSIUM (test code=K) 3.4 mmol/L 3.5-5.1 CHLORIDE (test code=CL) 108.0 mmol/L 98-107 CARBON DIOXIDE (test code=CO2) 24.0 mmol/L 21-32 ANION GAP (test code=GAP) 12.4 10-20 GLUCOSE (test code=GLU) 70 mg/dL 74-106 BLOOD UREA NITROGEN (test code=BUN) 29 mg/dL 7-18 GLOMERULAR FILTRATION RATE (test code=GFR) 22 mL/min >=60 Estimated GFR by using Modified MDRD formula.Chronic kidney disease is defined as either kidney damageor GFR <60 mL/min/1.73 m2 for >3 months. CREATININE (test code=CREAT) 2.30 mg/dL 0.55-1.02 Note change in reference range due to change in reagent. BUN/CREATININE RATIO (test code=BUN/CREA) 12.6 10-20 TOTAL PROTEIN (test code=PROT) 4.7 gram/dL 6.4-8.2 ALBUMIN (test code=ALB) 2.2 g/dL 3.4-5.0 GLOBULIN (test code=GLOB) 2.5 gram/dL 2.7-4.2 ALBUMIN/GLOBULIN RATIO (test code=A/G) 0.9 0.75-1.50 CALCIUM (test code=CA) 8.5 mg/dL 8.5-10.1 BILIRUBIN TOTAL (test code=BILT) 2.30 mg/dL 0.0-1.0 SGOT/AST (test code=AST) 13 IUnit/L 15-37 SGPT/ALT (test code=ALT) 15 IUnit/L 12-78 ALKALINE PHOSPHATASE TOTAL (test code=ALKP) 217 IUnit/L 45-117 Note change in reference range due to change in reagent. [id number] 06:16:00* Test Item Value Reference Range Comments PHOSPHORUS (test code=PHOS) 5.2 mg/dL 2.5-4.9 [id number] 06:16:00* Test Item Value Reference Range Comments MAGNESIUM (test code=MAG) 1.7 mg/dL 1.8-2.4 COMPREHENSIVE METABOLIC [id number] 06:09:00* Test Item Value Reference Range Comments SODIUM (test code=NA) 141 mmol/L 136-145 POTASSIUM (test code=K) 3.4 mmol/L 3.5-5.1 CHLORIDE (test code=CL) 108.0 mmol/L 98-107 CARBON DIOXIDE (test code=CO2) mmol/L 21-32 ANION GAP (test code=GAP) 10-20 GLUCOSE (test code=GLU) mg/dL 74-106 BLOOD UREA NITROGEN (test code=BUN) mg/dL 7-18 GLOMERULAR FILTRATION RATE (test code=GFR) mL/min >=60 CREATININE (test code=CREAT) mg/dL 0.55-1.02 BUN/CREATININE RATIO (test code=BUN/CREA) 10-20 TOTAL PROTEIN (test code=PROT) gram/dL 6.4-8.2 ALBUMIN (test code=ALB) g/dL 3.4-5.0 GLOBULIN (test code=GLOB) gram/dL 2.7-4.2 ALBUMIN/GLOBULIN RATIO (test code=A/G) 0.75-1.50 CALCIUM (test code=CA) mg/dL 8.5-10.1 BILIRUBIN TOTAL (test code=BILT) mg/dL 0.0-1.0 SGOT/AST (test code=AST) IUnit/L 15-37 SGPT/ALT (test code=ALT) IUnit/L 12-78 ALKALINE PHOSPHATASE TOTAL (test code=ALKP) IUnit/L 45-117 [id number] 06:09:00* Test Item Value Reference Range Comments PHOSPHORUS (test code=PHOS) mg/dL 2.5-4.9 [id number] 06:09:00* Test Item Value Reference Range Comments MAGNESIUM (test code=MAG) mg/dL 1.8-2.4 CBC W/MANUAL [id number] 05:50:00* Test Item Value Reference Range Comments WHITE BLOOD CELL (test code=WBC) 3.5 K/mm3 4.5-12.5 RED BLOOD CELL (test code=RBC) 3.02 mill/mm3 3.7-5.2 HEMOGLOBIN (test code=HGB) 7.9 gram/dL 11.5-15.5 HEMATOCRIT (test code=HCT) 26.8 % 36.0-46.0 MEAN CELL VOLUME (test code=MCV) 88.7 fL 80-98 MEAN CELL HGB (test code=MCH) 26.2 picogram 27.0-33.0 MEAN CELL HGB CONCETRATION (test code=MCHC) 29.5 gram/dL 33.0-36.0 RED CELL DISTRIBUTION WIDTH (test code=RDW) 16.4 % 11.6-16.2 RED CELL DISTRIBUTION WIDTH SD (test code=RDW-SD) 51.9 fL 37.0-51.0 PLATELET COUNT (test code=PLT) 15 K/mm3 150-450 Results called to [id number] by MARIUM 10/30/18 [id number] results verified and read back by Nurse? Y MEAN PLATELET VOLUME (test code=MPV) TEST NOT PERFORMED fL 6.7-11.0 IMMATURE GRANULOCYTE % (test code=IG%) 0.6 % 0.0-5.0 NUCLEATED RBC % (test code=NRBC%) 0.0 % 0-0 NEUTROPHIL # (test code=NT#) 2.29 K/mm3 1.8-7.7 IMMATURE GRANULOCYTE # (test code=IG#) 0.02 x10 3/uL 0-0.03 LYMPHOCYTE # (test code=LY#) 0.84 K/mm3 1.0-5.0 MONOCYTE # (test code=MO#) 0.26 K/mm3 0-0.8 EOSINOPHIL # (test code=EO#) 0.04 K/mm3 0.0-0.5 BASOPHIL # (test code=BA#) 0.01 K/mm3 0.0-0.2 NUCLEATED RBC # (test code=NRBC#) 0.00 K/mm3 0.0-0.1 MANUAL DIFF REQUIRED (test code=MDIFF) YES STAIN ACCEPTABILITY (test code=STN ACCEPTABLE) TOTAL CELLS COUNTED (test code=TCC) #CELLS SEGMENTED NEUTROPHILS (test code=SEG) % 39-69 LYMPHOCYTE (test code=LYMPH) % 25-55 MONOCYTE (test code=MON) % 0-10 EOSINOPHIL (test code=EOS) % 0.0-5.0 CABOT RINGS (test code=CAB) MORPHOLOGY COMMENT (test code=MOC) PLATELET ESTIMATE (test code=PLTEST) PLATELET MORPHOLOGY (test code=PLTMORPH) CBC W/MANUAL [id number] 05:50:00* Test Item Value Reference Range Comments WHITE BLOOD CELL (test code=WBC) 3.5 K/mm3 4.5-12.5 RED BLOOD CELL (test code=RBC) 3.02 mill/mm3 3.7-5.2 HEMOGLOBIN (test code=HGB) 7.9 gram/dL 11.5-15.5 HEMATOCRIT (test code=HCT) 26.8 % 36.0-46.0 MEAN CELL VOLUME (test code=MCV) 88.7 fL 80-98 MEAN CELL HGB (test code=MCH) 26.2 picogram 27.0-33.0 MEAN CELL HGB CONCETRATION (test code=MCHC) 29.5 gram/dL 33.0-36.0 RED CELL DISTRIBUTION WIDTH (test code=RDW) 16.4 % 11.6-16.2 RED CELL DISTRIBUTION WIDTH SD (test code=RDW-SD) 51.9 fL 37.0-51.0 PLATELET COUNT (test code=PLT) 15 K/mm3 150-450 Results called to [id number] by MARIUM 10/30/18 0549Critical results verified and read back by Nurse? Y MEAN PLATELET VOLUME (test code=MPV) TEST NOT PERFORMED fL 6.7-11.0 IMMATURE GRANULOCYTE % (test code=IG%) 0.6 % 0.0-5.0 NUCLEATED RBC % (test code=NRBC%) 0.0 % 0-0 NEUTROPHIL # (test code=NT#) 2.29 K/mm3 1.8-7.7 IMMATURE GRANULOCYTE # (test code=IG#) 0.02 x10 3/uL 0-0.03 LYMPHOCYTE # (test code=LY#) 0.84 K/mm3 1.0-5.0 MONOCYTE # (test code=MO#) 0.26 K/mm3 0-0.8 EOSINOPHIL # (test code=EO#) 0.04 K/mm3 0.0-0.5 BASOPHIL # (test code=BA#) 0.01 K/mm3 0.0-0.2 NUCLEATED RBC # (test code=NRBC#) 0.00 K/mm3 0.0-0.1 MANUAL DIFF REQUIRED (test code=MDIFF) YES STAIN ACCEPTABILITY (test code=STN ACCEPTABLE) TOTAL CELLS COUNTED (test code=TCC) #CELLS SEGMENTED NEUTROPHILS (test code=SEG) % 39-69 LYMPHOCYTE (test code=LYMPH) % 25-55 MONOCYTE (test code=MON) % 0-10 EOSINOPHIL (test code=EOS) % 0.0-5.0 MORPHOLOGY COMMENT (test code=MOC) PLATELET ESTIMATE (test code=PLTEST) PLATELET MORPHOLOGY (test code=PLTMORPH) CBC W/MANUAL [id number] 05:50:00* Test Item Value Reference Range Comments WHITE BLOOD CELL (test code=WBC) 3.5 K/mm3 4.5-12.5 RED BLOOD CELL (test code=RBC) 3.02 mill/mm3 3.7-5.2 HEMOGLOBIN (test code=HGB) 7.9 gram/dL 11.5-15.5 HEMATOCRIT (test code=HCT) 26.8 % 36.0-46.0 MEAN CELL VOLUME (test code=MCV) 88.7 fL 80-98 MEAN CELL HGB (test code=MCH) 26.2 picogram 27.0-33.0 MEAN CELL HGB CONCETRATION (test code=MCHC) 29.5 gram/dL 33.0-36.0 RED CELL DISTRIBUTION WIDTH (test code=RDW) 16.4 % 11.6-16.2 RED CELL DISTRIBUTION WIDTH SD (test code=RDW-SD) 51.9 fL 37.0-51.0 PLATELET COUNT (test code=PLT) 15 K/mm3 150-450 Results called to [id number] by MARIUM 10/30/18 0549Critical results verified and read back by Nurse? Y MEAN PLATELET VOLUME (test code=MPV) TEST NOT PERFORMED fL 6.7-11.0 IMMATURE GRANULOCYTE % (test code=IG%) 0.6 % 0.0-5.0 NUCLEATED RBC % (test code=NRBC%) 0.0 % 0-0 NEUTROPHIL # (test code=NT#) 2.29 K/mm3 1.8-7.7 IMMATURE GRANULOCYTE # (test code=IG#) 0.02 x10 3/uL 0-0.03 LYMPHOCYTE # (test code=LY#) 0.84 K/mm3 1.0-5.0 MONOCYTE # (test code=MO#) 0.26 K/mm3 0-0.8 EOSINOPHIL # (test code=EO#) 0.04 K/mm3 0.0-0.5 BASOPHIL # (test code=BA#) 0.01 K/mm3 0.0-0.2 NUCLEATED RBC # (test code=NRBC#) 0.00 K/mm3 0.0-0.1 MANUAL DIFF REQUIRED (test code=MDIFF) YES STAIN ACCEPTABILITY (test code=STN ACCEPTABLE) TOTAL CELLS COUNTED (test code=TCC) #CELLS SEGMENTED NEUTROPHILS (test code=SEG) % 39-69 LYMPHOCYTE (test code=LYMPH) % 25-55 MONOCYTE (test code=MON) % 0-10 MORPHOLOGY COMMENT (test code=MOC) PLATELET ESTIMATE (test code=PLTEST) PLATELET MORPHOLOGY (test code=PLTMORPH) CBC W/MANUAL [id number] 05:49:00* Test Item Value Reference Range Comments WHITE BLOOD CELL (test code=WBC) 3.5 K/mm3 4.5-12.5 RED BLOOD CELL (test code=RBC) 3.02 mill/mm3 3.7-5.2 HEMOGLOBIN (test code=HGB) 7.9 gram/dL 11.5-15.5 HEMATOCRIT (test code=HCT) 26.8 % 36.0-46.0 MEAN CELL VOLUME (test code=MCV) 88.7 fL 80-98 MEAN CELL HGB (test code=MCH) 26.2 picogram 27.0-33.0 MEAN CELL HGB CONCETRATION (test code=MCHC) 29.5 gram/dL 33.0-36.0 RED CELL DISTRIBUTION WIDTH (test code=RDW) 16.4 % 11.6-16.2 RED CELL DISTRIBUTION WIDTH SD (test code=RDW-SD) 51.9 fL 37.0-51.0 PLATELET COUNT (test code=PLT) 15 K/mm3 150-450 Results called to [id number] by MARIUM 10/30/18 0549Critical results verified and read back by Nurse? Y MEAN PLATELET VOLUME (test code=MPV) TEST NOT PERFORMED fL 6.7-11.0 IMMATURE GRANULOCYTE % (test code=IG%) 0.6 % 0.0-5.0 NUCLEATED RBC % (test code=NRBC%) 0.0 % 0-0 NEUTROPHIL # (test code=NT#) 2.29 K/mm3 1.8-7.7 IMMATURE GRANULOCYTE # (test code=IG#) 0.02 x10 3/uL 0-0.03 LYMPHOCYTE # (test code=LY#) 0.84 K/mm3 1.0-5.0 MONOCYTE # (test code=MO#) 0.26 K/mm3 0-0.8 EOSINOPHIL # (test code=EO#) 0.04 K/mm3 0.0-0.5 BASOPHIL # (test code=BA#) 0.01 K/mm3 0.0-0.2 NUCLEATED RBC # (test code=NRBC#) 0.00 K/mm3 0.0-0.1 MANUAL DIFF REQUIRED (test code=MDIFF) YES STAIN ACCEPTABILITY (test code=STN ACCEPTABLE) TOTAL CELLS COUNTED (test code=TCC) #CELLS SEGMENTED NEUTROPHILS (test code=SEG) % 39-69 LYMPHOCYTE (test code=LYMPH) % 25-55 MONOCYTE (test code=MON) % 0-10 EOSINOPHIL (test code=EOS) % 0.0-5.0 CABOT RINGS (test code=CAB) MORPHOLOGY COMMENT (test code=MOC) PLATELET ESTIMATE (test code=PLTEST) PLATELET MORPHOLOGY (test code=PLTMORPH) CBC W/MANUAL [id number] 05:49:00* Test Item Value Reference Range Comments WHITE BLOOD CELL (test code=WBC) 3.5 K/mm3 4.5-12.5 RED BLOOD CELL (test code=RBC) 3.02 mill/mm3 3.7-5.2 HEMOGLOBIN (test code=HGB) 7.9 gram/dL 11.5-15.5 HEMATOCRIT (test code=HCT) 26.8 % 36.0-46.0 MEAN CELL VOLUME (test code=MCV) 88.7 fL 80-98 MEAN CELL HGB (test code=MCH) 26.2 picogram 27.0-33.0 MEAN CELL HGB CONCETRATION (test code=MCHC) 29.5 gram/dL 33.0-36.0 RED CELL DISTRIBUTION WIDTH (test code=RDW) 16.4 % 11.6-16.2 RED CELL DISTRIBUTION WIDTH SD (test code=RDW-SD) 51.9 fL 37.0-51.0 PLATELET COUNT (test code=PLT) 15 K/mm3 150-450 Results called to [id number] by MARIUM 10/30/18 0549Critical results verified and read back by Nurse? Y MEAN PLATELET VOLUME (test code=MPV) TEST NOT PERFORMED fL 6.7-11.0 IMMATURE GRANULOCYTE % (test code=IG%) 0.6 % 0.0-5.0 NUCLEATED RBC % (test code=NRBC%) 0.0 % 0-0 NEUTROPHIL # (test code=NT#) 2.29 K/mm3 1.8-7.7 IMMATURE GRANULOCYTE # (test code=IG#) 0.02 x10 3/uL 0-0.03 LYMPHOCYTE # (test code=LY#) 0.84 K/mm3 1.0-5.0 MONOCYTE # (test code=MO#) 0.26 K/mm3 0-0.8 EOSINOPHIL # (test code=EO#) 0.04 K/mm3 0.0-0.5 BASOPHIL # (test code=BA#) 0.01 K/mm3 0.0-0.2 NUCLEATED RBC # (test code=NRBC#) 0.00 K/mm3 0.0-0.1 MANUAL DIFF REQUIRED (test code=MDIFF) YES STAIN ACCEPTABILITY (test code=STN ACCEPTABLE) TOTAL CELLS COUNTED (test code=TCC) #CELLS SEGMENTED NEUTROPHILS (test code=SEG) % 39-69 LYMPHOCYTE (test code=LYMPH) % 25-55 MONOCYTE (test code=MON) % 0-10 EOSINOPHIL (test code=EOS) % 0.0-5.0 CABOT RINGS (test code=CAB) MORPHOLOGY COMMENT (test code=MOC) PLATELET ESTIMATE (test code=PLTEST) PLATELET MORPHOLOGY (test code=PLTMORPH) [id number] 17:01:00* Test Item Value Reference Range Comments GLUBED (test code=GLUBED) 84 mg/dL 74-106 [facility] [id number] 11:57:00* Test Item Value Reference Range Comments GLUBED (test code=GLUBED) 73 mg/dL 74-106 [facility] CBC W/AUTO [id number] 09:25:00* Test Item Value Reference Range Comments WHITE BLOOD CELL (test code=WBC) 5.2 K/mm3 4.5-12.5 RED BLOOD CELL (test code=RBC) 3.57 mill/mm3 3.7-5.2 HEMOGLOBIN (test code=HGB) 9.8 gram/dL 11.5-15.5 HEMATOCRIT (test code=HCT) 31.2 % 36.0-46.0 MEAN CELL VOLUME (test code=MCV) 87.4 fL 80-98 MEAN CELL HGB (test code=MCH) 27.5 picogram 27.0-33.0 MEAN CELL HGB CONCETRATION (test code=MCHC) 31.4 gram/dL 33.0-36.0 RED CELL DISTRIBUTION WIDTH (test code=RDW) 16.1 % 11.6-16.2 RED CELL DISTRIBUTION WIDTH SD (test code=RDW-SD) 50.5 fL 37.0-51.0 PLATELET COUNT (test code=PLT) 21 K/mm3 150-450 Results called to [id number] by V.LAB.CF2 10/29/18 0827Critical results verified and read back by Nurse? Y MEAN PLATELET VOLUME (test code=MPV) TEST NOT PERFORMED fL 6.7-11.0 Unable to determine due to platelet abnormality , please seethe platelet morphology. NEUTROPHIL % (test code=NT%) 76.7 % 39.0-69.0 IMMATURE GRANULOCYTE % (test code=IG%) 0.8 % 0.0-5.0 LYMPHOCYTE % (test code=LY%) 15.1 % 25.0-55.0 MONOCYTE % (test code=MO%) 6.8 % 0.0-10.0 EOSINOPHIL % (test code=EO%) 0.4 % 0.0-5.0 BASOPHIL % (test code=BA%) 0.2 % 0.0-1.0 NUCLEATED RBC % (test code=NRBC%) 0.0 % 0-0 NEUTROPHIL # (test code=NT#) 3.97 K/mm3 1.8-7.7 IMMATURE GRANULOCYTE # (test code=IG#) 0.04 x10 3/uL 0-0.03 LYMPHOCYTE # (test code=LY#) 0.78 K/mm3 1.0-5.0 MONOCYTE # (test code=MO#) 0.35 K/mm3 0-0.8 EOSINOPHIL # (test code=EO#) 0.02 K/mm3 0.0-0.5 BASOPHIL # (test code=BA#) 0.01 K/mm3 0.0-0.2 NUCLEATED RBC # (test code=NRBC#) 0.00 K/mm3 0.0-0.1 MANUAL DIFF REQUIRED (test code=MDIFF) NO, ONLY SCAN NEEDED DIFFERENTIAL [id number] 09:25:00* Test Item Value Reference Range Comments STAIN ACCEPTABILITY (test code=STN ACCEPTABLE) STAIN ACCEPTABLE POLYCHROMASIA (test code=POLC) 1+ ANISOCYTOSIS (test code=ANISO) 1+ MACROCYTOSIS (test code=MACR) 1+ PLATELET ESTIMATE (test code=PLTEST) DECREASED PLATELET MORPHOLOGY (test code=PLTMORPH) NORMAL CBC W/AUTO [id number] 08:28:00* Test Item Value Reference Range Comments WHITE BLOOD CELL (test code=WBC) 5.2 K/mm3 4.5-12.5 RED BLOOD CELL (test code=RBC) 3.57 mill/mm3 3.7-5.2 HEMOGLOBIN (test code=HGB) 9.8 gram/dL 11.5-15.5 HEMATOCRIT (test code=HCT) 31.2 % 36.0-46.0 MEAN CELL VOLUME (test code=MCV) 87.4 fL 80-98 MEAN CELL HGB (test code=MCH) 27.5 picogram 27.0-33.0 MEAN CELL HGB CONCETRATION (test code=MCHC) 31.4 gram/dL 33.0-36.0 RED CELL DISTRIBUTION WIDTH (test code=RDW) 16.1 % 11.6-16.2 RED CELL DISTRIBUTION WIDTH SD (test code=RDW-SD) 50.5 fL 37.0-51.0 PLATELET COUNT (test code=PLT) 21 K/mm3 150-450 Results called to [id number] by MELISSA.CF2 10/29/18 0827Critical results verified and read back by Nurse? Y MEAN PLATELET VOLUME (test code=MPV) TEST NOT PERFORMED fL 6.7-11.0 Unable to determine due to platelet abnormality , please seethe platelet morphology. NEUTROPHIL % (test code=NT%) 76.7 % 39.0-69.0 IMMATURE GRANULOCYTE % (test code=IG%) 0.8 % 0.0-5.0 LYMPHOCYTE % (test code=LY%) 15.1 % 25.0-55.0 MONOCYTE % (test code=MO%) 6.8 % 0.0-10.0 EOSINOPHIL % (test code=EO%) 0.4 % 0.0-5.0 BASOPHIL % (test code=BA%) 0.2 % 0.0-1.0 NUCLEATED RBC % (test code=NRBC%) 0.0 % 0-0 NEUTROPHIL # (test code=NT#) 3.97 K/mm3 1.8-7.7 IMMATURE GRANULOCYTE # (test code=IG#) 0.04 x10 3/uL 0-0.03 LYMPHOCYTE # (test code=LY#) 0.78 K/mm3 1.0-5.0 MONOCYTE # (test code=MO#) 0.35 K/mm3 0-0.8 EOSINOPHIL # (test code=EO#) 0.02 K/mm3 0.0-0.5 BASOPHIL # (test code=BA#) 0.01 K/mm3 0.0-0.2 NUCLEATED RBC # (test code=NRBC#) 0.00 K/mm3 0.0-0.1 MANUAL DIFF REQUIRED (test code=MDIFF) NO, ONLY SCAN NEEDED DIFFERENTIAL [id number] 08:28:00* Test Item Value Reference Range Comments STAIN ACCEPTABILITY (test code=STN ACCEPTABLE) CABOT RINGS (test code=CAB) MORPHOLOGY COMMENT (test code=MOC) PLATELET ESTIMATE (test code=PLTEST) PLATELET MORPHOLOGY (test code=PLTMORPH) CBC W/AUTO [id number] 08:28:00* Test Item Value Reference Range Comments WHITE BLOOD CELL (test code=WBC) 5.2 K/mm3 4.5-12.5 RED BLOOD CELL (test code=RBC) 3.57 mill/mm3 3.7-5.2 HEMOGLOBIN (test code=HGB) 9.8 gram/dL 11.5-15.5 HEMATOCRIT (test code=HCT) 31.2 % 36.0-46.0 MEAN CELL VOLUME (test code=MCV) 87.4 fL 80-98 MEAN CELL HGB (test code=MCH) 27.5 picogram 27.0-33.0 MEAN CELL HGB CONCETRATION (test code=MCHC) 31.4 gram/dL 33.0-36.0 RED CELL DISTRIBUTION WIDTH (test code=RDW) 16.1 % 11.6-16.2 RED CELL DISTRIBUTION WIDTH SD (test code=RDW-SD) 50.5 fL 37.0-51.0 PLATELET COUNT (test code=PLT) 21 K/mm3 150-450 Results called to [id number] by V.LAB.CF2 10/29/18 0827Critical results verified and read back by Nurse? Y MEAN PLATELET VOLUME (test code=MPV) TEST NOT PERFORMED fL 6.7-11.0 Unable to determine due to platelet abnormality , please seethe platelet morphology. NEUTROPHIL % (test code=NT%) 76.7 % 39.0-69.0 IMMATURE GRANULOCYTE % (test code=IG%) 0.8 % 0.0-5.0 LYMPHOCYTE % (test code=LY%) 15.1 % 25.0-55.0 MONOCYTE % (test code=MO%) 6.8 % 0.0-10.0 EOSINOPHIL % (test code=EO%) 0.4 % 0.0-5.0 BASOPHIL % (test code=BA%) 0.2 % 0.0-1.0 NUCLEATED RBC % (test code=NRBC%) 0.0 % 0-0 NEUTROPHIL # (test code=NT#) 3.97 K/mm3 1.8-7.7 IMMATURE GRANULOCYTE # (test code=IG#) 0.04 x10 3/uL 0-0.03 LYMPHOCYTE # (test code=LY#) 0.78 K/mm3 1.0-5.0 MONOCYTE # (test code=MO#) 0.35 K/mm3 0-0.8 EOSINOPHIL # (test code=EO#) 0.02 K/mm3 0.0-0.5 BASOPHIL # (test code=BA#) 0.01 K/mm3 0.0-0.2 NUCLEATED RBC # (test code=NRBC#) 0.00 K/mm3 0.0-0.1 MANUAL DIFF REQUIRED (test code=MDIFF) NO, ONLY SCAN NEEDED DIFFERENTIAL [id number] 08:28:00* Test Item Value Reference Range Comments STAIN ACCEPTABILITY (test code=STN ACCEPTABLE) MORPHOLOGY COMMENT (test code=MOC) PLATELET ESTIMATE (test code=PLTEST) PLATELET MORPHOLOGY (test code=PLTMORPH) CBC W/AUTO [id number] 08:27:00* Test Item Value Reference Range Comments WHITE BLOOD CELL (test code=WBC) 5.2 K/mm3 4.5-12.5 RED BLOOD CELL (test code=RBC) 3.57 mill/mm3 3.7-5.2 HEMOGLOBIN (test code=HGB) 9.8 gram/dL 11.5-15.5 HEMATOCRIT (test code=HCT) 31.2 % 36.0-46.0 MEAN CELL VOLUME (test code=MCV) 87.4 fL 80-98 MEAN CELL HGB (test code=MCH) 27.5 picogram 27.0-33.0 MEAN CELL HGB CONCETRATION (test code=MCHC) 31.4 gram/dL 33.0-36.0 RED CELL DISTRIBUTION WIDTH (test code=RDW) 16.1 % 11.6-16.2 RED CELL DISTRIBUTION WIDTH SD (test code=RDW-SD) 50.5 fL 37.0-51.0 PLATELET COUNT (test code=PLT) 21 K/mm3 150-450 Results called to [id number] by MELISSA.CF2 10/29/18 0827Critical results verified and read back by Nurse? Y MEAN PLATELET VOLUME (test code=MPV) TEST NOT PERFORMED fL 6.7-11.0 Unable to determine due to platelet abnormality , please seethe platelet morphology. NEUTROPHIL % (test code=NT%) 76.7 % 39.0-69.0 IMMATURE GRANULOCYTE % (test code=IG%) 0.8 % 0.0-5.0 LYMPHOCYTE % (test code=LY%) 15.1 % 25.0-55.0 MONOCYTE % (test code=MO%) 6.8 % 0.0-10.0 EOSINOPHIL % (test code=EO%) 0.4 % 0.0-5.0 BASOPHIL % (test code=BA%) 0.2 % 0.0-1.0 NUCLEATED RBC % (test code=NRBC%) 0.0 % 0-0 NEUTROPHIL # (test code=NT#) 3.97 K/mm3 1.8-7.7 IMMATURE GRANULOCYTE # (test code=IG#) 0.04 x10 3/uL 0-0.03 LYMPHOCYTE # (test code=LY#) 0.78 K/mm3 1.0-5.0 MONOCYTE # (test code=MO#) 0.35 K/mm3 0-0.8 EOSINOPHIL # (test code=EO#) 0.02 K/mm3 0.0-0.5 BASOPHIL # (test code=BA#) 0.01 K/mm3 0.0-0.2 NUCLEATED RBC # (test code=NRBC#) 0.00 K/mm3 0.0-0.1 MANUAL DIFF REQUIRED (test code=MDIFF) NO, ONLY SCAN NEEDED DIFFERENTIAL [id number] 08:27:00* Test Item Value Reference Range Comments STAIN ACCEPTABILITY (test code=STN ACCEPTABLE) CABOT RINGS (test code=CAB) MORPHOLOGY COMMENT (test code=MOC) PLATELET ESTIMATE (test code=PLTEST) PLATELET MORPHOLOGY (test code=PLTMORPH) CBC W/AUTO [id number] 08:27:00* Test Item Value Reference Range Comments WHITE BLOOD CELL (test code=WBC) 5.2 K/mm3 4.5-12.5 RED BLOOD CELL (test code=RBC) 3.57 mill/mm3 3.7-5.2 HEMOGLOBIN (test code=HGB) 9.8 gram/dL 11.5-15.5 HEMATOCRIT (test code=HCT) 31.2 % 36.0-46.0 MEAN CELL VOLUME (test code=MCV) 87.4 fL 80-98 MEAN CELL HGB (test code=MCH) 27.5 picogram 27.0-33.0 MEAN CELL HGB CONCETRATION (test code=MCHC) 31.4 gram/dL 33.0-36.0 RED CELL DISTRIBUTION WIDTH (test code=RDW) 16.1 % 11.6-16.2 RED CELL DISTRIBUTION WIDTH SD (test code=RDW-SD) 50.5 fL 37.0-51.0 PLATELET COUNT (test code=PLT) 21 K/mm3 150-450 Results called to [id number] by EMILY 10/29/18 0827Critical results verified and read back by Nurse? Y MEAN PLATELET VOLUME (test code=MPV) TEST NOT PERFORMED fL 6.7-11.0 Unable to determine due to platelet abnormality , please seethe platelet morphology. NEUTROPHIL % (test code=NT%) 76.7 % 39.0-69.0 IMMATURE GRANULOCYTE % (test code=IG%) 0.8 % 0.0-5.0 LYMPHOCYTE % (test code=LY%) 15.1 % 25.0-55.0 MONOCYTE % (test code=MO%) 6.8 % 0.0-10.0 EOSINOPHIL % (test code=EO%) 0.4 % 0.0-5.0 BASOPHIL % (test code=BA%) 0.2 % 0.0-1.0 NUCLEATED RBC % (test code=NRBC%) 0.0 % 0-0 NEUTROPHIL # (test code=NT#) 3.97 K/mm3 1.8-7.7 IMMATURE GRANULOCYTE # (test code=IG#) 0.04 x10 3/uL 0-0.03 LYMPHOCYTE # (test code=LY#) 0.78 K/mm3 1.0-5.0 MONOCYTE # (test code=MO#) 0.35 K/mm3 0-0.8 EOSINOPHIL # (test code=EO#) 0.02 K/mm3 0.0-0.5 BASOPHIL # (test code=BA#) 0.01 K/mm3 0.0-0.2 NUCLEATED RBC # (test code=NRBC#) 0.00 K/mm3 0.0-0.1 MANUAL DIFF REQUIRED (test code=MDIFF) NO, ONLY SCAN NEEDED DIFFERENTIAL [id number] 08:27:00* Test Item Value Reference Range Comments STAIN ACCEPTABILITY (test code=STN ACCEPTABLE) CABOT RINGS (test code=CAB) MORPHOLOGY COMMENT (test code=MOC) PLATELET ESTIMATE (test code=PLTEST) PLATELET MORPHOLOGY (test code=PLTMORPH) COMPREHENSIVE METABOLIC [id number] 08:20:00* Test Item Value Reference Range Comments SODIUM (test code=NA) 140 mmol/L 136-145 POTASSIUM (test code=K) 3.6 mmol/L 3.5-5.1 CHLORIDE (test code=CL) 106.0 mmol/L 98-107 CARBON DIOXIDE (test code=CO2) 23.0 mmol/L 21-32 ANION GAP (test code=GAP) 14.6 10-20 GLUCOSE (test code=GLU) 58 mg/dL 74-106 BLOOD UREA NITROGEN (test code=BUN) 27 mg/dL 7-18 GLOMERULAR FILTRATION RATE (test code=GFR) 25 mL/min >=60 Estimated GFR by using Modified MDRD formula.Chronic kidney disease is defined as either kidney damageor GFR <60 mL/min/1.73 m2 for >3 months. CREATININE (test code=CREAT) 2.10 mg/dL 0.55-1.02 Note change in reference range due to change in reagent. BUN/CREATININE RATIO (test code=BUN/CREA) 12.9 10-20 TOTAL PROTEIN (test code=PROT) 5.2 gram/dL 6.4-8.2 ALBUMIN (test code=ALB) 1.7 g/dL 3.4-5.0 GLOBULIN (test code=GLOB) 3.5 gram/dL 2.7-4.2 ALBUMIN/GLOBULIN RATIO (test code=A/G) 0.5 0.75-1.50 CALCIUM (test code=CA) 8.6 mg/dL 8.5-10.1 BILIRUBIN TOTAL (test code=BILT) 2.90 mg/dL 0.0-1.0 SGOT/AST (test code=AST) 17 IUnit/L 15-37 SGPT/ALT (test code=ALT) 18 IUnit/L 12-78 ALKALINE PHOSPHATASE TOTAL (test code=ALKP) 227 IUnit/L 45-117 Note change in reference range due to change in reagent. [id number] 08:20:00* Test Item Value Reference Range Comments PHOSPHORUS (test code=PHOS) 4.2 mg/dL 2.5-4.9 [id number] 08:20:00* Test Item Value Reference Range Comments MAGNESIUM (test code=MAG) 1.8 mg/dL 1.8-2.4 COMPREHENSIVE METABOLIC [id number] 07:50:00* Test Item Value Reference Range Comments SODIUM (test code=NA) 140 mmol/L 136-145 POTASSIUM (test code=K) 3.6 mmol/L 3.5-5.1 CHLORIDE (test code=CL) 106.0 mmol/L 98-107 CARBON DIOXIDE (test code=CO2) mmol/L 21-32 ANION GAP (test code=GAP) 10-20 GLUCOSE (test code=GLU) mg/dL 74-106 BLOOD UREA NITROGEN (test code=BUN) mg/dL 7-18 GLOMERULAR FILTRATION RATE (test code=GFR) mL/min >=60 CREATININE (test code=CREAT) mg/dL 0.55-1.02 BUN/CREATININE RATIO (test code=BUN/CREA) 10-20 TOTAL PROTEIN (test code=PROT) gram/dL 6.4-8.2 ALBUMIN (test code=ALB) g/dL 3.4-5.0 GLOBULIN (test code=GLOB) gram/dL 2.7-4.2 ALBUMIN/GLOBULIN RATIO (test code=A/G) 0.75-1.50 CALCIUM (test code=CA) mg/dL 8.5-10.1 BILIRUBIN TOTAL (test code=BILT) mg/dL 0.0-1.0 SGOT/AST (test code=AST) IUnit/L 15-37 SGPT/ALT (test code=ALT) IUnit/L 12-78 ALKALINE PHOSPHATASE TOTAL (test code=ALKP) IUnit/L 45-117 [id number] 07:50:00* Test Item Value Reference Range Comments PHOSPHORUS (test code=PHOS) mg/dL 2.5-4.9 [id number] 07:50:00* Test Item Value Reference Range Comments MAGNESIUM (test code=MAG) mg/dL 1.8-2.4 - XR CHEST 1 [id number] 06:26:00 FAX: Kim Wayne MD [phone] [place]: St: ADM FAX: Gray Luong MD Name: SIOBHAN BARBOSA [facility] : 1965 Age/S: 53/F [address] Unit #: [id number] Loc: [address] [address] Phys: Kim Dill MD Acct: [id number] Dis Date: Status: ADM IN PHONE #: [phone] Exam Date: 10/29/2018 0434 FAX #: [phone] Reason: Pneumonia EXAMS: CPT CODE: [id number] XR CHEST 1 V [id number] REASON FOR EXAM: Pneumonia EXAM ORDER DATE: 10/29/2018 6:30 AM Ordering MConrado: Kim Dill MD PROCEDURE: - XR CHEST 1 V COMPARISON: 10/28/2018 FINDINGS: Portable AP frontal view of the chest obtained at 4:23 AM shows patchy opacity of the left base. The heart size is minimally enlarged. Stable appearance of the right IJ dialysis catheter. Pulmonary vasculatures are minimally congested. IMPRESSION: Status post extubation. Persistent atelectasis or consolidation of the left base with a small left pleural effusion at 0626 Reported and signed by: Jewel Reyez M.D. CC: Kim Dill MD; Gray Knott Technologist: AUSTIN CARRANZA, RT(R); Cathi Brock Trnscrd Date/Time/By: 10/29/2018 (625) : By: Mark Orig Print D/T: S: 10/29/2018 (0670) PAGE 1 Signed Report [id number] 21:52:00* Test Item Value Reference Range Comments GLUBED (test code=GLUBED) 72 mg/dL 74-106 Performed by certified transit mixer operator at [facility] [id number] 15:01:00* Test Item Value Reference Range Comments GLUBED (test code=GLUBED) 89 mg/dL 74-106 Performed by certified transit mixer operator at [facility] [id number] 14:53:00* Test Item Value Reference Range Comments AMMONIA (test code=AMM) 20 umol/L 11-[id number] 11:58:00* Test Item Value Reference Range Comments FLUID SOURCE (test code=SOURCEFL) ASCITES FLD FLUID COLOR (test code=COLFL) YELLOW COLORLESS FLUID APPEARANCE (test code=APPFL) CLOUDY FLUID WBC AUTO (test code=WBCFLA) 64038 cells/uL FLUID RBC AUTO (test code=RBCFLA) 89876 cells/uL FLUID TOTAL CELLS (test code=TCFL) 08039 cells/uL >0 Fluid WBC RBC Type cells/uL cells/uL CSF (0-5) n/a Peritoneal n/a n/a Pleural n/a n/a Synovial <200 n/a CSF (0-30) n/a FLUID POLY (test code=POLYFL) 76.0 % FLUID LYMPHOCYTE (test code=LYMPHFL) 16.0 % FLUID EOSINOPHIL (test code=EOSFL) 0.0 % FLUID BASOPHIL (test code=BASOFL) 0.0 % FLUID PLASMA CELL (test code=PLAFL) 0.0 % FLUID MACROPHAGE (test code=MACFL) 8.0 % FLUID OTHER CELL (test code=OTHERFL) 0.0 % TOTAL CELLS COUNTED ON DIFF (test code=TOTCELLFL) 100 cells REVIEWED BY (test code=REVIEW) DANNY BIRD PATHOLOGIST PERITONEAL FLD [id number] 11:58:00* Test Item Value Reference Range Comments PERITONEAL FLD GLUCOSE (test code=GLUPT) < 1 mg/dL PERITONEAL FLD TOTAL [id number] 11:58:00* Test Item Value Reference Range Comments PERITONEAL FLD TOTAL PROTEIN (test code=PROTPT) 2.7 gram/dL CBC W/MANUAL [id number] 10:28:00* Test Item Value Reference Range Comments WHITE BLOOD CELL (test code=WBC) 7.0 K/mm3 4.5-12.5 RED BLOOD CELL (test code=RBC) 3.48 mill/mm3 3.7-5.2 HEMOGLOBIN (test code=HGB) 9.4 gram/dL 11.5-15.5 HEMATOCRIT (test code=HCT) 30.9 % 36.0-46.0 MEAN CELL VOLUME (test code=MCV) 88.8 fL 80-98 MEAN CELL HGB (test code=MCH) 27.0 picogram 27.0-33.0 MEAN CELL HGB CONCETRATION (test code=MCHC) 30.4 gram/dL 33.0-36.0 RED CELL DISTRIBUTION WIDTH (test code=RDW) 16.3 % 11.6-16.2 RED CELL DISTRIBUTION WIDTH SD (test code=RDW-SD) 50.9 fL 37.0-51.0 PLATELET COUNT (test code=PLT) 22 K/mm3 150-450 Results called to [id number] by ENMA 10/28/18 0805Critical results verified and read back by Nurse? Y IMMATURE GRANULOCYTE % (test code=IG%) 1.0 % 0.0-5.0 NUCLEATED RBC % (test code=NRBC%) 0.0 % 0-0 NEUTROPHIL # (test code=NT#) 5.42 K/mm3 1.8-7.7 IMMATURE GRANULOCYTE # (test code=IG#) 0.07 x10 3/uL 0-0.03 LYMPHOCYTE # (test code=LY#) 0.90 K/mm3 1.0-5.0 MONOCYTE # (test code=MO#) 0.49 K/mm3 0-0.8 EOSINOPHIL # (test code=EO#) 0.10 K/mm3 0.0-0.5 BASOPHIL # (test code=BA#) 0.01 K/mm3 0.0-0.2 NUCLEATED RBC # (test code=NRBC#) 0.00 K/mm3 0.0-0.1 MANUAL DIFF REQUIRED (test code=MDIFF) YES STAIN ACCEPTABILITY (test code=STN ACCEPTABLE) STAIN ACCEPTABLE TOTAL CELLS COUNTED (test code=TCC) 115 #CELLS SEGMENTED NEUTROPHILS (test code=SEG) 89.6 % 39-69 BAND NEUTROPHIL (test code=BAND) 0 % 0-10 LYMPHOCYTE (test code=LYMPH) 6.1 % 25-55 REACTIVE LYMPH (test code=RELYMPH) 0 % MONOCYTE (test code=MON) 2.6 % 0-10 EOSINOPHIL (test code=EOS) 1.7 % 0.0-5.0 BASOPHIL (test code=BASO) 0 % 0-1.0 METAMYELOCYTE (test code=META) 0 % 0-0 MYELOCYTE (test code=MYELO) 0 % 0.0-0.0 PROMYELOCYTE (test code=PROM) 0 % 0-0 POLYCHROMASIA (test code=POLC) 1+ HYPOCHROMIA (test code=HYPO) 1+ POIKILOCYTOSIS (test code=POIK) 1+ ANISOCYTOSIS (test code=ANISO) 1+ PLATELET ESTIMATE (test code=PLTEST) DECREASED PLATELET MORPHOLOGY (test code=PLTMORPH) SIZE VARIABLE IMMATURE FORMS (test code=IMMAT) 0 % AB HEPATITIS B [id number] 08:17:00* Test Item Value Reference Range Comments AB HEPATITIS B SURFACE (test code=HBSAB) Non Reactive () Non Reactive: Inconsistent with immunity, less than 10 mIU/mL Reactive: Consistent with immunity, greater than 9.9 mIU/mLPerformed At: [facility] [address] [id number] Arturo Mccormick MD Ph:[phone] CBC W/MANUAL [id number] 08:06:00* Test Item Value Reference Range Comments WHITE BLOOD CELL (test code=WBC) 7.0 K/mm3 4.5-12.5 RED BLOOD CELL (test code=RBC) 3.48 mill/mm3 3.7-5.2 HEMOGLOBIN (test code=HGB) 9.4 gram/dL 11.5-15.5 HEMATOCRIT (test code=HCT) 30.9 % 36.0-46.0 MEAN CELL VOLUME (test code=MCV) 88.8 fL 80-98 MEAN CELL HGB (test code=MCH) 27.0 picogram 27.0-33.0 MEAN CELL HGB CONCETRATION (test code=MCHC) 30.4 gram/dL 33.0-36.0 RED CELL DISTRIBUTION WIDTH (test code=RDW) 16.3 % 11.6-16.2 RED CELL DISTRIBUTION WIDTH SD (test code=RDW-SD) 50.9 fL 37.0-51.0 PLATELET COUNT (test code=PLT) 22 K/mm3 150-450 Results called to [id number] by ENMA 10/28/18 0805Critical results verified and read back by Nurse? Y IMMATURE GRANULOCYTE % (test code=IG%) 1.0 % 0.0-5.0 NUCLEATED RBC % (test code=NRBC%) 0.0 % 0-0 NEUTROPHIL # (test code=NT#) 5.42 K/mm3 1.8-7.7 IMMATURE GRANULOCYTE # (test code=IG#) 0.07 x10 3/uL 0-0.03 LYMPHOCYTE # (test code=LY#) 0.90 K/mm3 1.0-5.0 MONOCYTE # (test code=MO#) 0.49 K/mm3 0-0.8 EOSINOPHIL # (test code=EO#) 0.10 K/mm3 0.0-0.5 BASOPHIL # (test code=BA#) 0.01 K/mm3 0.0-0.2 NUCLEATED RBC # (test code=NRBC#) 0.00 K/mm3 0.0-0.1 MANUAL DIFF REQUIRED (test code=MDIFF) YES STAIN ACCEPTABILITY (test code=STN ACCEPTABLE) TOTAL CELLS COUNTED (test code=TCC) #CELLS SEGMENTED NEUTROPHILS (test code=SEG) % 39-69 LYMPHOCYTE (test code=LYMPH) % 25-55 MONOCYTE (test code=MON) % 0-10 EOSINOPHIL (test code=EOS) % 0.0-5.0 CABOT RINGS (test code=CAB) MORPHOLOGY COMMENT (test code=MOC) PLATELET ESTIMATE (test code=PLTEST) PLATELET MORPHOLOGY (test code=PLTMORPH) CBC W/MANUAL [id number] 08:06:00* Test Item Value Reference Range Comments WHITE BLOOD CELL (test code=WBC) 7.0 K/mm3 4.5-12.5 RED BLOOD CELL (test code=RBC) 3.48 mill/mm3 3.7-5.2 HEMOGLOBIN (test code=HGB) 9.4 gram/dL 11.5-15.5 HEMATOCRIT (test code=HCT) 30.9 % 36.0-46.0 MEAN CELL VOLUME (test code=MCV) 88.8 fL 80-98 MEAN CELL HGB (test code=MCH) 27.0 picogram 27.0-33.0 MEAN CELL HGB CONCETRATION (test code=MCHC) 30.4 gram/dL 33.0-36.0 RED CELL DISTRIBUTION WIDTH (test code=RDW) 16.3 % 11.6-16.2 RED CELL DISTRIBUTION WIDTH SD (test code=RDW-SD) 50.9 fL 37.0-51.0 PLATELET COUNT (test code=PLT) 22 K/mm3 150-450 Results called to [id number] by ENMA 10/28/18 0805Critical results verified and read back by Nurse? Y IMMATURE GRANULOCYTE % (test code=IG%) 1.0 % 0.0-5.0 NUCLEATED RBC % (test code=NRBC%) 0.0 % 0-0 NEUTROPHIL # (test code=NT#) 5.42 K/mm3 1.8-7.7 IMMATURE GRANULOCYTE # (test code=IG#) 0.07 x10 3/uL 0-0.03 LYMPHOCYTE # (test code=LY#) 0.90 K/mm3 1.0-5.0 MONOCYTE # (test code=MO#) 0.49 K/mm3 0-0.8 EOSINOPHIL # (test code=EO#) 0.10 K/mm3 0.0-0.5 BASOPHIL # (test code=BA#) 0.01 K/mm3 0.0-0.2 NUCLEATED RBC # (test code=NRBC#) 0.00 K/mm3 0.0-0.1 MANUAL DIFF REQUIRED (test code=MDIFF) YES STAIN ACCEPTABILITY (test code=STN ACCEPTABLE) TOTAL CELLS COUNTED (test code=TCC) #CELLS SEGMENTED NEUTROPHILS (test code=SEG) % 39-69 LYMPHOCYTE (test code=LYMPH) % 25-55 MONOCYTE (test code=MON) % 0-10 EOSINOPHIL (test code=EOS) % 0.0-5.0 CABOT RINGS (test code=CAB) MORPHOLOGY COMMENT (test code=MOC) PLATELET ESTIMATE (test code=PLTEST) PLATELET MORPHOLOGY (test code=PLTMORPH) CBC W/MANUAL [id number] 08:06:00* Test Item Value Reference Range Comments WHITE BLOOD CELL (test code=WBC) 7.0 K/mm3 4.5-12.5 RED BLOOD CELL (test code=RBC) 3.48 mill/mm3 3.7-5.2 HEMOGLOBIN (test code=HGB) 9.4 gram/dL 11.5-15.5 HEMATOCRIT (test code=HCT) 30.9 % 36.0-46.0 MEAN CELL VOLUME (test code=MCV) 88.8 fL 80-98 MEAN CELL HGB (test code=MCH) 27.0 picogram 27.0-33.0 MEAN CELL HGB CONCETRATION (test code=MCHC) 30.4 gram/dL 33.0-36.0 RED CELL DISTRIBUTION WIDTH (test code=RDW) 16.3 % 11.6-16.2 RED CELL DISTRIBUTION WIDTH SD (test code=RDW-SD) 50.9 fL 37.0-51.0 PLATELET COUNT (test code=PLT) 22 K/mm3 150-450 Results called to [id number] by ENMA 10/28/18 0805Critical results verified and read back by Nurse? Y IMMATURE GRANULOCYTE % (test code=IG%) 1.0 % 0.0-5.0 NUCLEATED RBC % (test code=NRBC%) 0.0 % 0-0 NEUTROPHIL # (test code=NT#) 5.42 K/mm3 1.8-7.7 IMMATURE GRANULOCYTE # (test code=IG#) 0.07 x10 3/uL 0-0.03 LYMPHOCYTE # (test code=LY#) 0.90 K/mm3 1.0-5.0 MONOCYTE # (test code=MO#) 0.49 K/mm3 0-0.8 EOSINOPHIL # (test code=EO#) 0.10 K/mm3 0.0-0.5 BASOPHIL # (test code=BA#) 0.01 K/mm3 0.0-0.2 NUCLEATED RBC # (test code=NRBC#) 0.00 K/mm3 0.0-0.1 MANUAL DIFF REQUIRED (test code=MDIFF) YES STAIN ACCEPTABILITY (test code=STN ACCEPTABLE) TOTAL CELLS COUNTED (test code=TCC) #CELLS SEGMENTED NEUTROPHILS (test code=SEG) % 39-69 LYMPHOCYTE (test code=LYMPH) % 25-55 MONOCYTE (test code=MON) % 0-10 EOSINOPHIL (test code=EOS) % 0.0-5.0 MORPHOLOGY COMMENT (test code=MOC) PLATELET ESTIMATE (test code=PLTEST) PLATELET MORPHOLOGY (test code=PLTMORPH) CBC W/MANUAL [id number] 08:06:00* Test Item Value Reference Range Comments WHITE BLOOD CELL (test code=WBC) 7.0 K/mm3 4.5-12.5 RED BLOOD CELL (test code=RBC) 3.48 mill/mm3 3.7-5.2 HEMOGLOBIN (test code=HGB) 9.4 gram/dL 11.5-15.5 HEMATOCRIT (test code=HCT) 30.9 % 36.0-46.0 MEAN CELL VOLUME (test code=MCV) 88.8 fL 80-98 MEAN CELL HGB (test code=MCH) 27.0 picogram 27.0-33.0 MEAN CELL HGB CONCETRATION (test code=MCHC) 30.4 gram/dL 33.0-36.0 RED CELL DISTRIBUTION WIDTH (test code=RDW) 16.3 % 11.6-16.2 RED CELL DISTRIBUTION WIDTH SD (test code=RDW-SD) 50.9 fL 37.0-51.0 PLATELET COUNT (test code=PLT) 22 K/mm3 150-450 Results called to [id number] by ENMA 10/28/18 0805Critical results verified and read back by Nurse? Y IMMATURE GRANULOCYTE % (test code=IG%) 1.0 % 0.0-5.0 NUCLEATED RBC % (test code=NRBC%) 0.0 % 0-0 NEUTROPHIL # (test code=NT#) 5.42 K/mm3 1.8-7.7 IMMATURE GRANULOCYTE # (test code=IG#) 0.07 x10 3/uL 0-0.03 LYMPHOCYTE # (test code=LY#) 0.90 K/mm3 1.0-5.0 MONOCYTE # (test code=MO#) 0.49 K/mm3 0-0.8 EOSINOPHIL # (test code=EO#) 0.10 K/mm3 0.0-0.5 BASOPHIL # (test code=BA#) 0.01 K/mm3 0.0-0.2 NUCLEATED RBC # (test code=NRBC#) 0.00 K/mm3 0.0-0.1 MANUAL DIFF REQUIRED (test code=MDIFF) YES STAIN ACCEPTABILITY (test code=STN ACCEPTABLE) TOTAL CELLS COUNTED (test code=TCC) #CELLS SEGMENTED NEUTROPHILS (test code=SEG) % 39-69 LYMPHOCYTE (test code=LYMPH) % 25-55 MONOCYTE (test code=MON) % 0-10 MORPHOLOGY COMMENT (test code=MOC) PLATELET ESTIMATE (test code=PLTEST) PLATELET MORPHOLOGY (test code=PLTMORPH) CBC W/MANUAL [id number] 08:06:00* Test Item Value Reference Range Comments WHITE BLOOD CELL (test code=WBC) 7.0 K/mm3 4.5-12.5 RED BLOOD CELL (test code=RBC) 3.48 mill/mm3 3.7-5.2 HEMOGLOBIN (test code=HGB) 9.4 gram/dL 11.5-15.5 HEMATOCRIT (test code=HCT) 30.9 % 36.0-46.0 MEAN CELL VOLUME (test code=MCV) 88.8 fL 80-98 MEAN CELL HGB (test code=MCH) 27.0 picogram 27.0-33.0 MEAN CELL HGB CONCETRATION (test code=MCHC) 30.4 gram/dL 33.0-36.0 RED CELL DISTRIBUTION WIDTH (test code=RDW) 16.3 % 11.6-16.2 RED CELL DISTRIBUTION WIDTH SD (test code=RDW-SD) 50.9 fL 37.0-51.0 PLATELET COUNT (test code=PLT) 22 K/mm3 150-450 Results called to [id number] by ENMA 10/28/18 0805Critical results verified and read back by Nurse? Y IMMATURE GRANULOCYTE % (test code=IG%) 1.0 % 0.0-5.0 NUCLEATED RBC % (test code=NRBC%) 0.0 % 0-0 NEUTROPHIL # (test code=NT#) 5.42 K/mm3 1.8-7.7 IMMATURE GRANULOCYTE # (test code=IG#) 0.07 x10 3/uL 0-0.03 LYMPHOCYTE # (test code=LY#) 0.90 K/mm3 1.0-5.0 MONOCYTE # (test code=MO#) 0.49 K/mm3 0-0.8 EOSINOPHIL # (test code=EO#) 0.10 K/mm3 0.0-0.5 BASOPHIL # (test code=BA#) 0.01 K/mm3 0.0-0.2 NUCLEATED RBC # (test code=NRBC#) 0.00 K/mm3 0.0-0.1 MANUAL DIFF REQUIRED (test code=MDIFF) YES STAIN ACCEPTABILITY (test code=STN ACCEPTABLE) TOTAL CELLS COUNTED (test code=TCC) #CELLS SEGMENTED NEUTROPHILS (test code=SEG) % 39-69 LYMPHOCYTE (test code=LYMPH) % 25-55 MONOCYTE (test code=MON) % 0-10 EOSINOPHIL (test code=EOS) % 0.0-5.0 CABOT RINGS (test code=CAB) MORPHOLOGY COMMENT (test code=MOC) PLATELET ESTIMATE (test code=PLTEST) PLATELET MORPHOLOGY (test code=PLTMORPH) - XR CHEST 1 [id number] 07:39:00 FAX: Kim Wayne MD [phone] [place]: St: [facility] FAX: Gray Luong MD Name: SIOBHAN BARBOSA [facility] : 1965 Age/S: 53/F [address] [facility] Unit #: [id number] Loc: [address] [address] Phys: Kim Dill MD Acct: [id number] Dis Date: Status: ADM IN PHONE #: [phone] Exam Date: 10/28/2018 0539 FAX #: [phone] Reason: Resp Failure EXAMS: CPT CODE: [id number] XR CHEST 1 V 59547 EXAM: Chest x-ray, one view; INFORMATION: Respiratory failure, septic shock; IMPRESSION: No change; left lower lobe infiltrates; Mild cardiomegaly; small left pleural effusion; at 0739 Reported and signed by: Jameel Alvarez M.D. CC: Kim Dill MD; Gray Knott Technologist: HARLEY Lopes Trngard Date/Time/By: 10/28/2018 (0739) : By: [email or web address] Orig Print D/T: S: 10/28/2018 (0767) PAGE 1 Signed Report COMPREHENSIVE METABOLIC [id number] 07:25:00* Test Item Value Reference Range Comments SODIUM (test code=NA) 137 mmol/L 136-145 POTASSIUM (test code=K) 3.5 mmol/L 3.5-5.1 CHLORIDE (test code=CL) 102.0 mmol/L 98-107 CARBON DIOXIDE (test code=CO2) 24.0 mmol/L 21-32 ANION GAP (test code=GAP) 14.5 10-20 GLUCOSE (test code=GLU) 87 mg/dL 74-106 BLOOD UREA NITROGEN (test code=BUN) 28 mg/dL 7-18 GLOMERULAR FILTRATION RATE (test code=GFR) 26 mL/min >=60 Estimated GFR by using Modified MDRD formula.Chronic kidney disease is defined as either kidney damageor GFR <60 mL/min/1.73 m2 for >3 months. CREATININE (test code=CREAT) 2.00 mg/dL 0.55-1.02 Note change in reference range due to change in reagent. BUN/CREATININE RATIO (test code=BUN/CREA) 14.0 10-20 TOTAL PROTEIN (test code=PROT) 5.1 gram/dL 6.4-8.2 ALBUMIN (test code=ALB) 1.7 g/dL 3.4-5.0 GLOBULIN (test code=GLOB) 3.4 gram/dL 2.7-4.2 ALBUMIN/GLOBULIN RATIO (test code=A/G) 0.5 0.75-1.50 CALCIUM (test code=CA) 8.5 mg/dL 8.5-10.1 BILIRUBIN TOTAL (test code=BILT) 3.40 mg/dL 0.0-1.0 SGOT/AST (test code=AST) 18 IUnit/L 15-37 SGPT/ALT (test code=ALT) 17 IUnit/L 12-78 ALKALINE PHOSPHATASE TOTAL (test code=ALKP) 261 IUnit/L 45-117 Note change in reference range due to change in reagent. [id number] 07:25:00* Test Item Value Reference Range Comments PHOSPHORUS (test code=PHOS) 3.7 mg/dL 2.5-4.9 [id number] 07:25:00* Test Item Value Reference Range Comments MAGNESIUM (test code=MAG) 1.8 mg/dL 1.8-2.4 VANCOMYCIN [id number] 07:25:00* Test Item Value Reference Range Comments VANCOMYCIN TROUGH (test code=VANCT) 17.4 ug/mL 10-20 COMPREHENSIVE METABOLIC [id number] 07:14:00* Test Item Value Reference Range Comments SODIUM (test code=NA) 137 mmol/L 136-145 POTASSIUM (test code=K) 3.5 mmol/L 3.5-5.1 CHLORIDE (test code=CL) 102.0 mmol/L 98-107 CARBON DIOXIDE (test code=CO2) mmol/L 21-32 ANION GAP (test code=GAP) 10-20 GLUCOSE (test code=GLU) mg/dL 74-106 BLOOD UREA NITROGEN (test code=BUN) mg/dL 7-18 GLOMERULAR FILTRATION RATE (test code=GFR) mL/min >=60 CREATININE (test code=CREAT) mg/dL 0.55-1.02 BUN/CREATININE RATIO (test code=BUN/CREA) 10-20 TOTAL PROTEIN (test code=PROT) gram/dL 6.4-8.2 ALBUMIN (test code=ALB) g/dL 3.4-5.0 GLOBULIN (test code=GLOB) gram/dL 2.7-4.2 ALBUMIN/GLOBULIN RATIO (test code=A/G) 0.75-1.50 CALCIUM (test code=CA) mg/dL 8.5-10.1 BILIRUBIN TOTAL (test code=BILT) mg/dL 0.0-1.0 SGOT/AST (test code=AST) IUnit/L 15-37 SGPT/ALT (test code=ALT) IUnit/L 12-78 ALKALINE PHOSPHATASE TOTAL (test code=ALKP) IUnit/L 45-117 [id number] 07:14:00* Test Item Value Reference Range Comments PHOSPHORUS (test code=PHOS) mg/dL 2.5-4.9 [id number] 07:14:00* Test Item Value Reference Range Comments MAGNESIUM (test code=MAG) mg/dL 1.8-2.4 ARTERIAL BLOOD [id number] 05:08:00* Test Item Value Reference Range Comments ARTERIAL BLOOD GAS PH (test code=PHA) 7.46 7.35-7.45 ARTERIAL BLOOD GAS PCO2 (test code=PCO2A) 27.4 mm Hg 35-45 ARTERIAL BLOOD GAS PO2 (test code=PO2A) 179.2 mmHg 80-100 BICARBONATE TOTAL HCO3 (test code=HCO3) 18.8 mmol/L 23.0-27.0 BASE EXCESS (test code=TERRENCE) -4.0 mmol/L -3.0-5.0 Results called to and read back by Nelda - 10/28/2018; by Chanel ABG O2 SATURATION (test code=SATA) 98.7 % 90.0-98.0 ABG TYPE (test code=TYPEA) Arterial FIO2 (test code=FIO2A) 40.0 ABG VENT MODE (test code=MODEA) Assist Control ABG VENT RESP RATE (test code=RRA) 14.0 per min ABG TIDAL VOLUME (test code=TVA) 420.0 mL ABG PEEP (test code=PEEPA) 5.0 cmH2O ABG SITE (test code=SITEA) ARTERIAL LINE HEMATOCRIT (test code=HCT/ABG) 31 % 35-47 TOTAL HGB (test code=THB) 10.5 gram/dL 11.5-15.5 HGB O2 SAT (test code=HBOSAT) 98.1 % 94.00-98.00 CARBOXYHEMOGLOBIN (test code=HOHGBT) 0.3 %totalHg 0.5-1.5 Results called to and read back by Nelda 10/28/2018; by Chanel METHEMOGLOBIN (test code=METHGB) 0.3 % 0.0-1.50 O2 CONTENT (test code=O2CT) 14.9 % vol 18.0-22.[id number] 01:49:00* Test Item Value Reference Range Comments FLUID SOURCE (test code=SOURCEFL) ASCITES FLD FLUID COLOR (test code=COLFL) YELLOW COLORLESS FLUID APPEARANCE (test code=APPFL) CLOUDY FLUID WBC AUTO (test code=WBCFLA) 01164 cells/uL FLUID RBC AUTO (test code=RBCFLA) 26918 cells/uL FLUID TOTAL CELLS (test code=TCFL) 17683 cells/uL >0 Fluid WBC RBC Type cells/uL cells/uL CSF (0-5) n/a Peritoneal n/a n/a Pleural n/a n/a Synovial <200 n/a CSF (0-30) n/a FLUID POLY (test code=POLYFL) 76.0 % FLUID LYMPHOCYTE (test code=LYMPHFL) 16.0 % FLUID EOSINOPHIL (test code=EOSFL) 0.0 % FLUID BASOPHIL (test code=BASOFL) 0.0 % FLUID PLASMA CELL (test code=PLAFL) 0.0 % FLUID MACROPHAGE (test code=MACFL) 8.0 % FLUID OTHER CELL (test code=OTHERFL) 0.0 % TOTAL CELLS COUNTED ON DIFF (test code=TOTCELLFL) 100 cells REVIEWED BY (test code=REVIEW) PATHOLOGIST PERITONEAL FLD [id number] 01:49:00* Test Item Value Reference Range Comments PERITONEAL FLD GLUCOSE (test code=GLUPT) < 1 mg/dL PERITONEAL FLD TOTAL [id number] 01:49:00* Test Item Value Reference Range Comments PERITONEAL FLD TOTAL PROTEIN (test code=PROTPT) 2.7 gram/dL BODY FLUID CELL [id number] 23:01:00* Test Item Value Reference Range Comments FLUID SOURCE (test code=SOURCEFL) ASCITES FLD FLUID COLOR (test code=COLFL) YELLOW COLORLESS FLUID APPEARANCE (test code=APPFL) CLOUDY FLUID WBC AUTO (test code=WBCFLA) 49950 cells/uL FLUID RBC AUTO (test code=RBCFLA) 66190 cells/uL FLUID TOTAL CELLS (test code=TCFL) 91720 cells/uL >0 Fluid WBC RBC Type cells/uL cells/uL CSF (0-5) n/a Peritoneal n/a n/a Pleural n/a n/a Synovial <200 n/a CSF (0-30) n/a TOTAL CELLS COUNTED ON DIFF (test code=TOTCELLFL) cells REVIEWED BY (test code=REVIEW) PATHOLOGIST PERITONEAL FLD [id number] 23:01:00* Test Item Value Reference Range Comments PERITONEAL FLD GLUCOSE (test code=GLUPT) < 1 mg/dL PERITONEAL FLD TOTAL [id number] 23:01:00* Test Item Value Reference Range Comments PERITONEAL FLD TOTAL PROTEIN (test code=PROTPT) 2.7 gram/dL BODY FLUID CELL [id number] 22:16:00* Test Item Value Reference Range Comments FLUID SOURCE (test code=SOURCEFL) ASCITES FLD FLUID COLOR (test code=COLFL) YELLOW COLORLESS FLUID APPEARANCE (test code=APPFL) CLOUDY FLUID WBC AUTO (test code=WBCFLA) 58969 cells/uL FLUID RBC (test code=RBCFL) per mm3 0-50 FLUID RBC AUTO (test code=RBCFLA) 93235 cells/uL FLUID TOTAL CELLS (test code=TCFL) 87953 cells/uL >0 Fluid WBC RBC Type cells/uL cells/uL CSF (0-5) n/a Peritoneal n/a n/a Pleural n/a n/a Synovial <200 n/a CSF (0-30) n/a TOTAL CELLS COUNTED ON DIFF (test code=TOTCELLFL) cells REVIEWED BY (test code=REVIEW) PATHOLOGIST PERITONEAL FLD [id number] 22:16:00* Test Item Value Reference Range Comments PERITONEAL FLD GLUCOSE (test code=GLUPT) < 1 mg/dL PERITONEAL FLD TOTAL [id number] 22:16:00* Test Item Value Reference Range Comments PERITONEAL FLD TOTAL PROTEIN (test code=PROTPT) 2.7 gram/dL BODY FLUID CELL [id number] 22:12:00* Test Item Value Reference Range Comments FLUID SOURCE (test code=SOURCEFL) ASCITES FLD FLUID COLOR (test code=COLFL) YELLOW COLORLESS FLUID APPEARANCE (test code=APPFL) CLOUDY FLUID WBC AUTO (test code=WBCFLA) 45404 cells/uL FLUID RBC (test code=RBCFL) per mm3 0-50 FLUID RBC AUTO (test code=RBCFLA) 16771 cells/uL FLUID TOTAL CELLS (test code=TCFL) 75465 cells/uL >0 Fluid WBC RBC Type cells/uL cells/uL CSF (0-5) n/a Peritoneal n/a n/a Pleural n/a n/a Synovial <200 n/a CSF (0-30) n/a TOTAL CELLS COUNTED ON DIFF (test code=TOTCELLFL) cells REVIEWED BY (test code=REVIEW) PATHOLOGIST PERITONEAL FLD [id number] 22:12:00* Test Item Value Reference Range Comments PERITONEAL FLD GLUCOSE (test code=GLUPT) < 1 mg/dL PERITONEAL FLD TOTAL [id number] 22:12:00* Test Item Value Reference Range Comments PERITONEAL FLD TOTAL PROTEIN (test code=PROTPT) gram/dL BODY FLUID CELL [id number] 21:49:00* Test Item Value Reference Range Comments FLUID SOURCE (test code=SOURCEFL) ASCITES FLD FLUID COLOR (test code=COLFL) YELLOW COLORLESS FLUID APPEARANCE (test code=APPFL) CLOUDY FLUID WBC AUTO (test code=WBCFLA) 17649 cells/uL FLUID RBC (test code=RBCFL) per mm3 0-50 FLUID RBC AUTO (test code=RBCFLA) 52948 cells/uL FLUID TOTAL CELLS (test code=TCFL) 24366 cells/uL >0 Fluid WBC RBC Type cells/uL cells/uL CSF (0-5) n/a Peritoneal n/a n/a Pleural n/a n/a Synovial <200 n/a CSF (0-30) n/a TOTAL CELLS COUNTED ON DIFF (test code=TOTCELLFL) cells REVIEWED BY (test code=REVIEW) PATHOLOGIST PERITONEAL FLD [id number] 21:49:00* Test Item Value Reference Range Comments PERITONEAL FLD GLUCOSE (test code=GLUPT) mg/dL PERITONEAL FLD TOTAL [id number] 21:49:00* Test Item Value Reference Range Comments PERITONEAL FLD TOTAL PROTEIN (test code=PROTPT) gram/dL BODY FLUID CELL [id number] 21:48:00* Test Item Value Reference Range Comments FLUID SOURCE (test code=SOURCEFL) ASCITES FLD FLUID COLOR (test code=COLFL) YELLOW COLORLESS FLUID APPEARANCE (test code=APPFL) CLOUDY FLUID RBC (test code=RBCFL) per mm3 0-50 FLUID TOTAL CELLS (test code=TCFL) cells/uL >0 TOTAL CELLS COUNTED ON DIFF (test code=TOTCELLFL) cells REVIEWED BY (test code=REVIEW) PATHOLOGIST PERITONEAL FLD [id number] 21:48:00* Test Item Value Reference Range Comments PERITONEAL FLD GLUCOSE (test code=GLUPT) mg/dL PERITONEAL FLD TOTAL [id number] 21:48:00* Test Item Value Reference Range Comments PERITONEAL FLD TOTAL PROTEIN (test code=PROTPT) gram/dL CBC W/MANUAL [id number] 14:40:00* Test Item Value Reference Range Comments WHITE BLOOD CELL (test code=WBC) 6.6 K/mm3 4.5-12.5 RED BLOOD CELL (test code=RBC) 2.85 mill/mm3 3.7-5.2 HEMOGLOBIN (test code=HGB) 7.6 gram/dL 11.5-15.5 HEMATOCRIT (test code=HCT) 25.5 % 36.0-46.0 MEAN CELL VOLUME (test code=MCV) 89.5 fL 80-98 MEAN CELL HGB (test code=MCH) 26.7 picogram 27.0-33.0 MEAN CELL HGB CONCETRATION (test code=MCHC) 29.8 gram/dL 33.0-36.0 RED CELL DISTRIBUTION WIDTH (test code=RDW) 16.9 % 11.6-16.2 RED CELL DISTRIBUTION WIDTH SD (test code=RDW-SD) 53.1 fL 37.0-51.0 PLATELET COUNT (test code=PLT) 14 K/mm3 150-450 Results called to MARCELLO [id number] V.LAB.OA 10/27/18 0732Critical results verified and read back by Nurse? Y MEAN PLATELET VOLUME (test code=MPV) TEST NOT PERFORMED fL 6.7-11.0 IMMATURE GRANULOCYTE % (test code=IG%) 0.9 % 0.0-5.0 NUCLEATED RBC % (test code=NRBC%) 0.0 % 0-0 NEUTROPHIL # (test code=NT#) 5.02 K/mm3 1.8-7.7 IMMATURE GRANULOCYTE # (test code=IG#) 0.06 x10 3/uL 0-0.03 LYMPHOCYTE # (test code=LY#) 1.06 K/mm3 1.0-5.0 MONOCYTE # (test code=MO#) 0.37 K/mm3 0-0.8 EOSINOPHIL # (test code=EO#) 0.09 K/mm3 0.0-0.5 BASOPHIL # (test code=BA#) 0.01 K/mm3 0.0-0.2 NUCLEATED RBC # (test code=NRBC#) 0.00 K/mm3 0.0-0.1 MANUAL DIFF REQUIRED (test code=MDIFF) YES STAIN ACCEPTABILITY (test code=STN ACCEPTABLE) STAIN ACCEPTABLE TOTAL CELLS COUNTED (test code=TCC) 115 #CELLS SEGMENTED NEUTROPHILS (test code=SEG) 84.4 % 39-69 BAND NEUTROPHIL (test code=BAND) 0.9 % 0-10 LYMPHOCYTE (test code=LYMPH) 8.7 % 25-55 REACTIVE LYMPH (test code=RELYMPH) 0 % MONOCYTE (test code=MON) 4.3 % 0-10 EOSINOPHIL (test code=EOS) 1.7 % 0.0-5.0 BASOPHIL (test code=BASO) 0 % 0-1.0 METAMYELOCYTE (test code=META) 0 % 0-0 MYELOCYTE (test code=MYELO) 0 % 0.0-0.0 PROMYELOCYTE (test code=PROM) 0 % 0-0 POLYCHROMASIA (test code=POLC) 1+ HYPOCHROMIA (test code=HYPO) 1+ POIKILOCYTOSIS (test code=POIK) 1+ ANISOCYTOSIS (test code=ANISO) 1+ PLATELET ESTIMATE (test code=PLTEST) DECREASED PLATELET MORPHOLOGY (test code=PLTMORPH) NORMAL IMMATURE FORMS (test code=IMMAT) 0 % HEPARIN INDUCED [id number] 10:47:00* Test Item Value Reference Range Comments HEPARIN INDUCED THROMBOCYTOPEN (test code=HIT) NEGATIVE NEGATIVE CBC W/MANUAL [id number] 07:33:00* Test Item Value Reference Range Comments WHITE BLOOD CELL (test code=WBC) 6.6 K/mm3 4.5-12.5 RED BLOOD CELL (test code=RBC) 2.85 mill/mm3 3.7-5.2 HEMOGLOBIN (test code=HGB) 7.6 gram/dL 11.5-15.5 HEMATOCRIT (test code=HCT) 25.5 % 36.0-46.0 MEAN CELL VOLUME (test code=MCV) 89.5 fL 80-98 MEAN CELL HGB (test code=MCH) 26.7 picogram 27.0-33.0 MEAN CELL HGB CONCETRATION (test code=MCHC) 29.8 gram/dL 33.0-36.0 RED CELL DISTRIBUTION WIDTH (test code=RDW) 16.9 % 11.6-16.2 RED CELL DISTRIBUTION WIDTH SD (test code=RDW-SD) 53.1 fL 37.0-51.0 PLATELET COUNT (test code=PLT) 14 K/mm3 150-450 Results called to MARCELLO [id number] BURKETTOA 10/27/18 0732Critical results verified and read back by Nurse? Y MEAN PLATELET VOLUME (test code=MPV) TEST NOT PERFORMED fL 6.7-11.0 IMMATURE GRANULOCYTE % (test code=IG%) 0.9 % 0.0-5.0 NUCLEATED RBC % (test code=NRBC%) 0.0 % 0-0 NEUTROPHIL # (test code=NT#) 5.02 K/mm3 1.8-7.7 IMMATURE GRANULOCYTE # (test code=IG#) 0.06 x10 3/uL 0-0.03 LYMPHOCYTE # (test code=LY#) 1.06 K/mm3 1.0-5.0 MONOCYTE # (test code=MO#) 0.37 K/mm3 0-0.8 EOSINOPHIL # (test code=EO#) 0.09 K/mm3 0.0-0.5 BASOPHIL # (test code=BA#) 0.01 K/mm3 0.0-0.2 NUCLEATED RBC # (test code=NRBC#) 0.00 K/mm3 0.0-0.1 MANUAL DIFF REQUIRED (test code=MDIFF) YES STAIN ACCEPTABILITY (test code=STN ACCEPTABLE) TOTAL CELLS COUNTED (test code=TCC) #CELLS SEGMENTED NEUTROPHILS (test code=SEG) % 39-69 LYMPHOCYTE (test code=LYMPH) % 25-55 MONOCYTE (test code=MON) % 0-10 EOSINOPHIL (test code=EOS) % 0.0-5.0 CABOT RINGS (test code=CAB) MORPHOLOGY COMMENT (test code=MOC) PLATELET ESTIMATE (test code=PLTEST) PLATELET MORPHOLOGY (test code=PLTMORPH) CBC W/MANUAL [id number] 07:33:00* Test Item Value Reference Range Comments WHITE BLOOD CELL (test code=WBC) 6.6 K/mm3 4.5-12.5 RED BLOOD CELL (test code=RBC) 2.85 mill/mm3 3.7-5.2 HEMOGLOBIN (test code=HGB) 7.6 gram/dL 11.5-15.5 HEMATOCRIT (test code=HCT) 25.5 % 36.0-46.0 MEAN CELL VOLUME (test code=MCV) 89.5 fL 80-98 MEAN CELL HGB (test code=MCH) 26.7 picogram 27.0-33.0 MEAN CELL HGB CONCETRATION (test code=MCHC) 29.8 gram/dL 33.0-36.0 RED CELL DISTRIBUTION WIDTH (test code=RDW) 16.9 % 11.6-16.2 RED CELL DISTRIBUTION WIDTH SD (test code=RDW-SD) 53.1 fL 37.0-51.0 PLATELET COUNT (test code=PLT) 14 K/mm3 150-450 Results called to MARCELLO [id number] [email or web address] 10/27/18 0732Critical results verified and read back by Nurse? Y MEAN PLATELET VOLUME (test code=MPV) TEST NOT PERFORMED fL 6.7-11.0 IMMATURE GRANULOCYTE % (test code=IG%) 0.9 % 0.0-5.0 NUCLEATED RBC % (test code=NRBC%) 0.0 % 0-0 NEUTROPHIL # (test code=NT#) 5.02 K/mm3 1.8-7.7 IMMATURE GRANULOCYTE # (test code=IG#) 0.06 x10 3/uL 0-0.03 LYMPHOCYTE # (test code=LY#) 1.06 K/mm3 1.0-5.0 MONOCYTE # (test code=MO#) 0.37 K/mm3 0-0.8 EOSINOPHIL # (test code=EO#) 0.09 K/mm3 0.0-0.5 BASOPHIL # (test code=BA#) 0.01 K/mm3 0.0-0.2 NUCLEATED RBC # (test code=NRBC#) 0.00 K/mm3 0.0-0.1 MANUAL DIFF REQUIRED (test code=MDIFF) YES STAIN ACCEPTABILITY (test code=STN ACCEPTABLE) TOTAL CELLS COUNTED (test code=TCC) #CELLS SEGMENTED NEUTROPHILS (test code=SEG) % 39-69 LYMPHOCYTE (test code=LYMPH) % 25-55 MONOCYTE (test code=MON) % 0-10 EOSINOPHIL (test code=EOS) % 0.0-5.0 MORPHOLOGY COMMENT (test code=MOC) PLATELET ESTIMATE (test code=PLTEST) PLATELET MORPHOLOGY (test code=PLTMORPH) CBC W/MANUAL [id number] 07:33:00* Test Item Value Reference Range Comments WHITE BLOOD CELL (test code=WBC) 6.6 K/mm3 4.5-12.5 RED BLOOD CELL (test code=RBC) 2.85 mill/mm3 3.7-5.2 HEMOGLOBIN (test code=HGB) 7.6 gram/dL 11.5-15.5 HEMATOCRIT (test code=HCT) 25.5 % 36.0-46.0 MEAN CELL VOLUME (test code=MCV) 89.5 fL 80-98 MEAN CELL HGB (test code=MCH) 26.7 picogram 27.0-33.0 MEAN CELL HGB CONCETRATION (test code=MCHC) 29.8 gram/dL 33.0-36.0 RED CELL DISTRIBUTION WIDTH (test code=RDW) 16.9 % 11.6-16.2 RED CELL DISTRIBUTION WIDTH SD (test code=RDW-SD) 53.1 fL 37.0-51.0 PLATELET COUNT (test code=PLT) 14 K/mm3 150-450 Results called to MARCELLO HERNANDEZ8267by [employer]. 10/27/18 0732Critical results verified and read back by Nurse? Y MEAN PLATELET VOLUME (test code=MPV) TEST NOT PERFORMED fL 6.7-11.0 IMMATURE GRANULOCYTE % (test code=IG%) 0.9 % 0.0-5.0 NUCLEATED RBC % (test code=NRBC%) 0.0 % 0-0 NEUTROPHIL # (test code=NT#) 5.02 K/mm3 1.8-7.7 IMMATURE GRANULOCYTE # (test code=IG#) 0.06 x10 3/uL 0-0.03 LYMPHOCYTE # (test code=LY#) 1.06 K/mm3 1.0-5.0 MONOCYTE # (test code=MO#) 0.37 K/mm3 0-0.8 EOSINOPHIL # (test code=EO#) 0.09 K/mm3 0.0-0.5 BASOPHIL # (test code=BA#) 0.01 K/mm3 0.0-0.2 NUCLEATED RBC # (test code=NRBC#) 0.00 K/mm3 0.0-0.1 MANUAL DIFF REQUIRED (test code=MDIFF) YES STAIN ACCEPTABILITY (test code=STN ACCEPTABLE) TOTAL CELLS COUNTED (test code=TCC) #CELLS SEGMENTED NEUTROPHILS (test code=SEG) % 39-69 LYMPHOCYTE (test code=LYMPH) % 25-55 MONOCYTE (test code=MON) % 0-10 MORPHOLOGY COMMENT (test code=MOC) PLATELET ESTIMATE (test code=PLTEST) PLATELET MORPHOLOGY (test code=PLTMORPH) CBC W/MANUAL [id number] 07:32:00* Test Item Value Reference Range Comments WHITE BLOOD CELL (test code=WBC) 6.6 K/mm3 4.5-12.5 RED BLOOD CELL (test code=RBC) 2.85 mill/mm3 3.7-5.2 HEMOGLOBIN (test code=HGB) 7.6 gram/dL 11.5-15.5 HEMATOCRIT (test code=HCT) 25.5 % 36.0-46.0 MEAN CELL VOLUME (test code=MCV) 89.5 fL 80-98 MEAN CELL HGB (test code=MCH) 26.7 picogram 27.0-33.0 MEAN CELL HGB CONCETRATION (test code=MCHC) 29.8 gram/dL 33.0-36.0 RED CELL DISTRIBUTION WIDTH (test code=RDW) 16.9 % 11.6-16.2 RED CELL DISTRIBUTION WIDTH SD (test code=RDW-SD) 53.1 fL 37.0-51.0 PLATELET COUNT (test code=PLT) 14 K/mm3 150-450 Results called to MARCELLO HERNANDEZ8267sukumar [facility]LOYD 10/27/18 0732Critical results verified and read back by Nurse? Y MEAN PLATELET VOLUME (test code=MPV) TEST NOT PERFORMED fL 6.7-11.0 IMMATURE GRANULOCYTE % (test code=IG%) 0.9 % 0.0-5.0 NUCLEATED RBC % (test code=NRBC%) 0.0 % 0-0 NEUTROPHIL # (test code=NT#) 5.02 K/mm3 1.8-7.7 IMMATURE GRANULOCYTE # (test code=IG#) 0.06 x10 3/uL 0-0.03 LYMPHOCYTE # (test code=LY#) 1.06 K/mm3 1.0-5.0 MONOCYTE # (test code=MO#) 0.37 K/mm3 0-0.8 EOSINOPHIL # (test code=EO#) 0.09 K/mm3 0.0-0.5 BASOPHIL # (test code=BA#) 0.01 K/mm3 0.0-0.2 NUCLEATED RBC # (test code=NRBC#) 0.00 K/mm3 0.0-0.1 MANUAL DIFF REQUIRED (test code=MDIFF) YES STAIN ACCEPTABILITY (test code=STN ACCEPTABLE) TOTAL CELLS COUNTED (test code=TCC) #CELLS SEGMENTED NEUTROPHILS (test code=SEG) % 39-69 LYMPHOCYTE (test code=LYMPH) % 25-55 MONOCYTE (test code=MON) % 0-10 EOSINOPHIL (test code=EOS) % 0.0-5.0 CABOT RINGS (test code=CAB) MORPHOLOGY COMMENT (test code=MOC) PLATELET ESTIMATE (test code=PLTEST) PLATELET MORPHOLOGY (test code=PLTMORPH) CBC W/MANUAL [id number] 07:32:00* Test Item Value Reference Range Comments WHITE BLOOD CELL (test code=WBC) 6.6 K/mm3 4.5-12.5 RED BLOOD CELL (test code=RBC) 2.85 mill/mm3 3.7-5.2 HEMOGLOBIN (test code=HGB) 7.6 gram/dL 11.5-15.5 HEMATOCRIT (test code=HCT) 25.5 % 36.0-46.0 MEAN CELL VOLUME (test code=MCV) 89.5 fL 80-98 MEAN CELL HGB (test code=MCH) 26.7 picogram 27.0-33.0 MEAN CELL HGB CONCETRATION (test code=MCHC) 29.8 gram/dL 33.0-36.0 RED CELL DISTRIBUTION WIDTH (test code=RDW) 16.9 % 11.6-16.2 RED CELL DISTRIBUTION WIDTH SD (test code=RDW-SD) 53.1 fL 37.0-51.0 PLATELET COUNT (test code=PLT) 14 K/mm3 150-450 Results called to MARCELLO TOUSSAINTE8267sukumar O[facility].LOYD 10/27/18 0732Critical results verified and read back by Nurse? Y MEAN PLATELET VOLUME (test code=MPV) TEST NOT PERFORMED fL 6.7-11.0 IMMATURE GRANULOCYTE % (test code=IG%) 0.9 % 0.0-5.0 NUCLEATED RBC % (test code=NRBC%) 0.0 % 0-0 NEUTROPHIL # (test code=NT#) 5.02 K/mm3 1.8-7.7 IMMATURE GRANULOCYTE # (test code=IG#) 0.06 x10 3/uL 0-0.03 LYMPHOCYTE # (test code=LY#) 1.06 K/mm3 1.0-5.0 MONOCYTE # (test code=MO#) 0.37 K/mm3 0-0.8 EOSINOPHIL # (test code=EO#) 0.09 K/mm3 0.0-0.5 BASOPHIL # (test code=BA#) 0.01 K/mm3 0.0-0.2 NUCLEATED RBC # (test code=NRBC#) 0.00 K/mm3 0.0-0.1 MANUAL DIFF REQUIRED (test code=MDIFF) YES STAIN ACCEPTABILITY (test code=STN ACCEPTABLE) TOTAL CELLS COUNTED (test code=TCC) #CELLS SEGMENTED NEUTROPHILS (test code=SEG) % 39-69 LYMPHOCYTE (test code=LYMPH) % 25-55 MONOCYTE (test code=MON) % 0-10 EOSINOPHIL (test code=EOS) % 0.0-5.0 CABOT RINGS (test code=CAB) MORPHOLOGY COMMENT (test code=MOC) PLATELET ESTIMATE (test code=PLTEST) PLATELET MORPHOLOGY (test code=PLTMORPH) COMPREHENSIVE METABOLIC [id number] 07:31:00* Test Item Value Reference Range Comments SODIUM (test code=NA) 136 mmol/L 136-145 POTASSIUM (test code=K) 3.8 mmol/L 3.5-5.1 CHLORIDE (test code=CL) 102.0 mmol/L 98-107 CARBON DIOXIDE (test code=CO2) 25.0 mmol/L 21-32 ANION GAP (test code=GAP) 12.8 10-20 GLUCOSE (test code=GLU) 125 mg/dL 74-106 BLOOD UREA NITROGEN (test code=BUN) 28 mg/dL 7-18 GLOMERULAR FILTRATION RATE (test code=GFR) 26 mL/min >=60 Estimated GFR by using Modified MDRD formula.Chronic kidney disease is defined as either kidney damageor GFR <60 mL/min/1.73 m2 for >3 months. CREATININE (test code=CREAT) 2.00 mg/dL 0.55-1.02 Note change in reference range due to change in reagent. BUN/CREATININE RATIO (test code=BUN/CREA) 14.0 10-20 TOTAL PROTEIN (test code=PROT) 5.0 gram/dL 6.4-8.2 ALBUMIN (test code=ALB) 1.8 g/dL 3.4-5.0 GLOBULIN (test code=GLOB) 3.2 gram/dL 2.7-4.2 ALBUMIN/GLOBULIN RATIO (test code=A/G) 0.6 0.75-1.50 CALCIUM (test code=CA) 8.1 mg/dL 8.5-10.1 BILIRUBIN TOTAL (test code=BILT) 4.40 mg/dL 0.0-1.0 SGOT/AST (test code=AST) 17 IUnit/L 15-37 SGPT/ALT (test code=ALT) 19 IUnit/L 12-78 ALKALINE PHOSPHATASE TOTAL (test code=ALKP) 259 IUnit/L 45-117 Note change in reference range due to change in reagent. [id number] 07:31:00* Test Item Value Reference Range Comments PHOSPHORUS (test code=PHOS) 3.5 mg/dL 2.5-4.9 [id number] 07:31:00* Test Item Value Reference Range Comments MAGNESIUM (test code=MAG) 1.9 mg/dL 1.8-2.4 COMPREHENSIVE METABOLIC [id number] 07:28:00* Test Item Value Reference Range Comments SODIUM (test code=NA) 136 mmol/L 136-145 POTASSIUM (test code=K) 3.8 mmol/L 3.5-5.1 CHLORIDE (test code=CL) 102.0 mmol/L 98-107 CARBON DIOXIDE (test code=CO2) mmol/L 21-32 ANION GAP (test code=GAP) 10-20 GLUCOSE (test code=GLU) mg/dL 74-106 BLOOD UREA NITROGEN (test code=BUN) mg/dL 7-18 GLOMERULAR FILTRATION RATE (test code=GFR) mL/min >=60 CREATININE (test code=CREAT) mg/dL 0.55-1.02 BUN/CREATININE RATIO (test code=BUN/CREA) 10-20 TOTAL PROTEIN (test code=PROT) gram/dL 6.4-8.2 ALBUMIN (test code=ALB) g/dL 3.4-5.0 GLOBULIN (test code=GLOB) gram/dL 2.7-4.2 ALBUMIN/GLOBULIN RATIO (test code=A/G) 0.75-1.50 CALCIUM (test code=CA) mg/dL 8.5-10.1 BILIRUBIN TOTAL (test code=BILT) mg/dL 0.0-1.0 SGOT/AST (test code=AST) IUnit/L 15-37 SGPT/ALT (test code=ALT) IUnit/L 12-78 ALKALINE PHOSPHATASE TOTAL (test code=ALKP) IUnit/L 45-117 [id number] 07:28:00* Test Item Value Reference Range Comments PHOSPHORUS (test code=PHOS) mg/dL 2.5-4.9 [id number] 07:28:00* Test Item Value Reference Range Comments MAGNESIUM (test code=MAG) mg/dL 1.8-2.4 - XR CHEST 1 [id number] 07:23:00 FAX: Sarita Macedo MD [place]: B St: [facility] FAX: Gray Luong MD Name: SIOBHAN BARBOSA [facility] : 1965 Age/S: 53/F [address] [facility] Unit #: [id number] Loc: [address] [address] Phys: Sarita Macedo MD Acct: [id number] Dis Date: Status: ADM IN PHONE #: [phone] Exam Date: 10/27/2018 0535 FAX #: [phone] Reason: intubated/vented EXAMS: CPT CODE: [id number] XR CHEST 1 V 39560 EXAM: Chest x-ray, one view; INFORMATION: Septic shock; INFORMATION: No change; left lower lobe infiltrate. Small left pleural effusion. at 0723 Reported and signed by: Jameel Alvarez M.D. CC: Sarita Macedo MD; Gray Knott Technologist: HARLEY TURNER JR Trnscrd Date/Time/By: 10/27/2018 (0723) : By: Leodan Orig Print D/T: S: 10/27/2018 (2532) PAGE 1 Signed Report ARTERIAL BLOOD [id number] 05:22:00* Test Item Value Reference Range Comments ARTERIAL BLOOD GAS PH (test code=PHA) 7.45 7.35-7.45 ARTERIAL BLOOD GAS PCO2 (test code=PCO2A) 33.7 mm Hg 35-45 ARTERIAL BLOOD GAS PO2 (test code=PO2A) 175.3 mmHg 80-100 BICARBONATE TOTAL HCO3 (test code=HCO3) 22.8 mmol/L 23.0-27.0 BASE EXCESS (test code=TERRENCE) -0.9 mmol/L -3.0-5.0 ABG O2 SATURATION (test code=SATA) 98.6 % 90.0-98.0 ABG TYPE (test code=TYPEA) Arterial FIO2 (test code=FIO2A) 40.0 ABG VENT MODE (test code=MODEA) Assist Control ABG VENT RESP RATE (test code=RRA) 12.0 per min ABG TIDAL VOLUME (test code=TVA) 420.0 mL ABG PEEP (test code=PEEPA) 5.0 cmH2O ABG SITE (test code=SITEA) ARTERIAL LINE HEMATOCRIT (test code=HCT/ABG) 26 % 35-47 TOTAL HGB (test code=THB) 9.0 gram/dL 11.5-15.5 HGB O2 SAT (test code=HBOSAT) 97.7 % 94.00-98.00 CARBOXYHEMOGLOBIN (test code=HOHGBT) 0.3 %totalHg 0.5-1.5 Results called to and read back by Trina 04:55 - 10/27/2018; by Chanel METHEMOGLOBIN (test code=METHGB) 0.6 % 0.0-1.50 O2 CONTENT (test code=O2CT) 12.8 % vol 18.0-22.0 AG HEPAT B [id number] 22:09:00* Test Item Value Reference Range Comments AG HEPAT B SURF (test code=HBSAG) Nonreactive Index Nonreactive - CT HEAD/BRAIN W/O [id number] 14:02:00 Name: SIOBHAN BARBOSA [facility] : 1965 Age/S: 53 / F J[facility] Unit #: [id number] Loc: [place] [address] Phys: Norma Akbar MD Acct: [id number] Dis Date: Status: ADM IN PHONE #: [phone] Exam Date: 10/26/2018 1341 FAX #: [phone] Reason: AMS EXAMS: CPT CODE: [id number] CT HEAD/BRAIN W/O CONT 81162 HISTORY: Confusion and septic shock. COMPARISON: None available. CT brain without contrast: Automated exposure control. No acute intracranial bleeds or extra-axial collections are noted. No acute territorial vascular infarction is noted. Arachnoid cyst in the anterior left temporal fossa measuring 4.2 cm. The sulci, gyri, ventricles and subarachnoid spaces and the basilar cisterns are normal for patient's age. No herniation or hydrocephalus or midline shift is noted. Mild periventricular ischemic gliosis is noted. Age-appropriate atrophy is noted as well. Portions of the visualized paranasal sinuses demonstrated complete opacification of the left maxillary sinus. No obvious bony calvarial defect is noted. IMPRESSION: No acute intracranial bleeds or extra-axial collections. No acute territorial vascular infarction. No herniation or hydrocephalus or midline shift. Chronic white matter ischemic disease and atrophy . at 1402 Reported and signed by: Krystian Johnson M.D. CC: Norma Akbar MD; Gray Knott Techno logist:Vee ContrerasRT(R),CT CTDI: DLP: Trnscb Date/Time : 10/26/2018 (1402) [email or web address] Orig Print D/T: S: 10/27/19 19 (1405) CTDI: DLP: PAGE 1 Araceli d Report [id number] 13:20:00* Test Item Value Reference Range Comments GLUBED (test code=GLUBED) 141 mg/dL 74-106 Performed by certified transit mixer operator at [facility] [id number] 13:13:00* Test Item Value Reference Range Comments GLUBED (test code=GLUBED) 154 mg/dL 74-106 Performed by certified transit mixer operator at [facility] - XR CHEST 1 [id number] 07:50:00 FAX: Sarita Macedo MD [place]: B St: ADM FAX: Gray Luong MD Name: SIOBHAN BARBOSA [facility] : 1965 Age/S: 53/F [address] [facility] Unit #: [id number] Loc: [address] [address] Phys: Sarita Macedo MD Acct: [id number] Dis Date: Status: ADM IN PHONE #: [phone] Exam Date: 10/26/2018 0539 FAX #: [phone] Reason: intubated/vented EXAMS: CPT CODE: [id number] XR CHEST 1 V 88617 EXAM: Chest x-ray, one view; INFORMATION: Left lower lobe pneumonia; IMPRESSION: Persistent and enlarging left lower lobe infiltrate. The heart is borderline in size. at 0750 Reported and signed by: Jameel Alvarez M.D. CC: Sarita Macedo MD; Gray Knott Technologist: HARLEY Lopes Trnscrd Date/Time/By: 10/26/2018 (0750) : By: MengGRW Orig Print D/T: S: 10/26/2018 (0753) PAGE 1 Signed Report COMPREHENSIVE METABOLIC PANEL 2018-10-26 07:19:00* Test Item Value Reference Range Comments SODIUM (test code=NA) 135 mmol/L 136-145 POTASSIUM (test code=K) 4.1 mmol/L 3.5-5.1 CHLORIDE (test code=CL) 103.0 mmol/L 98-107 CARBON DIOXIDE (test code=CO2) 23.0 mmol/L 21-32 ANION GAP (test code=GAP) 13.1 10-20 GLUCOSE (test code=GLU) 113 mg/dL 74-106 BLOOD UREA NITROGEN (test code=BUN) 34 mg/dL 7-18 GLOMERULAR FILTRATION RATE (test code=GFR) 23 mL/min >=60 Estimated GFR by using Modified MDRD formula.Chronic kidney disease is defined as either kidney damageor GFR <60 mL/min/1.73 m2 for >3 months. CREATININE (test code=CREAT) 2.20 mg/dL 0.55-1.02 Note change in reference range due to change in reagent. BUN/CREATININE RATIO (test code=BUN/CREA) 15.5 10-20 TOTAL PROTEIN (test code=PROT) 4.6 gram/dL 6.4-8.2 ALBUMIN (test code=ALB) 1.2 g/dL 3.4-5.0 GLOBULIN (test code=GLOB) 3.4 gram/dL 2.7-4.2 ALBUMIN/GLOBULIN RATIO (test code=A/G) 0.4 0.75-1.50 CALCIUM (test code=CA) 7.6 mg/dL 8.5-10.1 BILIRUBIN TOTAL (test code=BILT) 3.80 mg/dL 0.0-1.0 SGOT/AST (test code=AST) 22 IUnit/L 15-37 SGPT/ALT (test code=ALT) 21 IUnit/L 12-78 ALKALINE PHOSPHATASE TOTAL (test code=ALKP) 272 IUnit/L 45-117 Note change in reference range due to change in reagent. [id number] 07:19:00* Test Item Value Reference Range Comments PHOSPHORUS (test code=PHOS) 3.5 mg/dL 2.5-4.9 [id number] 07:19:00* Test Item Value Reference Range Comments MAGNESIUM (test code=MAG) 1.9 mg/dL 1.8-2.4 COMPREHENSIVE METABOLIC [id number] 07:07:00* Test Item Value Reference Range Comments SODIUM (test code=NA) 135 mmol/L 136-145 POTASSIUM (test code=K) 4.1 mmol/L 3.5-5.1 CHLORIDE (test code=CL) 103.0 mmol/L 98-107 CARBON DIOXIDE (test code=CO2) mmol/L 21-32 ANION GAP (test code=GAP) 10-20 GLUCOSE (test code=GLU) mg/dL 74-106 BLOOD UREA NITROGEN (test code=BUN) mg/dL 7-18 GLOMERULAR FILTRATION RATE (test code=GFR) mL/min >=60 CREATININE (test code=CREAT) mg/dL 0.55-1.02 BUN/CREATININE RATIO (test code=BUN/CREA) 10-20 TOTAL PROTEIN (test code=PROT) gram/dL 6.4-8.2 ALBUMIN (test code=ALB) g/dL 3.4-5.0 GLOBULIN (test code=GLOB) gram/dL 2.7-4.2 ALBUMIN/GLOBULIN RATIO (test code=A/G) 0.75-1.50 CALCIUM (test code=CA) mg/dL 8.5-10.1 BILIRUBIN TOTAL (test code=BILT) mg/dL 0.0-1.0 SGOT/AST (test code=AST) IUnit/L 15-37 SGPT/ALT (test code=ALT) IUnit/L 12-78 ALKALINE PHOSPHATASE TOTAL (test code=ALKP) IUnit/L 45-117 [id number] 07:07:00* Test Item Value Reference Range Comments PHOSPHORUS (test code=PHOS) mg/dL 2.5-4.9 [id number] 07:07:00* Test Item Value Reference Range Comments MAGNESIUM (test code=MAG) mg/dL 1.8-2.4 CBC W/AUTO [id number] 06:54:00* Test Item Value Reference Range Comments WHITE BLOOD CELL (test code=WBC) 7.2 K/mm3 4.5-12.5 RED BLOOD CELL (test code=RBC) 3.18 mill/mm3 3.7-5.2 HEMOGLOBIN (test code=HGB) 8.3 gram/dL 11.5-15.5 HEMATOCRIT (test code=HCT) 28.1 % 36.0-46.0 MEAN CELL VOLUME (test code=MCV) 88.4 fL 80-98 MEAN CELL HGB (test code=MCH) 26.1 picogram 27.0-33.0 MEAN CELL HGB CONCETRATION (test code=MCHC) 29.5 gram/dL 33.0-36.0 RED CELL DISTRIBUTION WIDTH (test code=RDW) 17.2 % 11.6-16.2 RED CELL DISTRIBUTION WIDTH SD (test code=RDW-SD) 53.0 fL 37.0-51.0 PLATELET COUNT (test code=PLT) 25 K/mm3 150-450 Results called to [id number] by ANTOINETTE 10/26/18 0654Critical results verified and read back by Nurse? Y MEAN PLATELET VOLUME (test code=MPV) TEST NOT PERFORMED fL 6.7-11.0 NEUTROPHIL % (test code=NT%) 69.3 % 39.0-69.0 IMMATURE GRANULOCYTE % (test code=IG%) 1.3 % 0.0-5.0 LYMPHOCYTE % (test code=LY%) 22.4 % 25.0-55.0 MONOCYTE % (test code=MO%) 5.1 % 0.0-10.0 EOSINOPHIL % (test code=EO%) 1.9 % 0.0-5.0 BASOPHIL % (test code=BA%) 0.0 % 0.0-1.0 NUCLEATED RBC % (test code=NRBC%) 0.0 % 0-0 NEUTROPHIL # (test code=NT#) 4.99 K/mm3 1.8-7.7 IMMATURE GRANULOCYTE # (test code=IG#) 0.09 x10 3/uL 0-0.03 LYMPHOCYTE # (test code=LY#) 1.61 K/mm3 1.0-5.0 MONOCYTE # (test code=MO#) 0.37 K/mm3 0-0.8 EOSINOPHIL # (test code=EO#) 0.14 K/mm3 0.0-0.5 BASOPHIL # (test code=BA#) 0.00 K/mm3 0.0-0.2 NUCLEATED RBC # (test code=NRBC#) 0.00 K/mm3 0.0-0.1 MANUAL DIFF REQUIRED (test code=MDIFF) NO ARTERIAL BLOOD [id number] 05:23:00* Test Item Value Reference Range Comments ARTERIAL BLOOD GAS PH (test code=PHA) 7.46 7.35-7.45 ARTERIAL BLOOD GAS PCO2 (test code=PCO2A) 34.2 mm Hg 35-45 ARTERIAL BLOOD GAS PO2 (test code=PO2A) 131.9 mmHg 80-100 BICARBONATE TOTAL HCO3 (test code=HCO3) 23.6 mmol/L 23.0-27.0 BASE EXCESS (test code=TERRENCE) -0.1 mmol/L -3.0-5.0 ABG O2 SATURATION (test code=SATA) 98.1 % 90.0-98.0 ABG TYPE (test code=TYPEA) Arterial FIO2 (test code=FIO2A) 40.0 ABG VENT MODE (test code=MODEA) Assist Control ABG VENT RESP RATE (test code=RRA) 14.0 per min ABG TIDAL VOLUME (test code=TVA) 420.0 mL ABG PEEP (test code=PEEPA) 5.0 cmH2O ABG SITE (test code=SITEA) ARTERIAL LINE HEMATOCRIT (test code=HCT/ABG) 27 % 35-47 TOTAL HGB (test code=THB) 9.3 gram/dL 11.5-15.5 HGB O2 SAT (test code=HBOSAT) 97.6 % 94.00-98.00 CARBOXYHEMOGLOBIN (test code=HOHGBT) 0.1 %totalHg 0.5-1.5 Results called to and read back by Trina 05:21 - 10/26/2018; by Chanel METHEMOGLOBIN (test code=METHGB) 0.4 % 0.0-1.50 O2 CONTENT (test code=O2CT) 13.0 % vol 18.0-22.0 LACTIC [id number] 22:18:00* Test Item Value Reference Range Comments LACTIC ACID (test code=LACT) 1.9 mmol/L 0.4-1.9 LACTIC [id number] 15:44:00* Test Item Value Reference Range Comments LACTIC ACID (test code=LACT) 2.8 mmol/L 0.4-1.9 Results called to [id number] by MADELAINEKNKetan 10/25/18 1544Critical results verified and read back by Nurse? Y LACTIC [id number] 12:25:00* Test Item Value Reference Range Comments LACTIC ACID (test code=LACT) 2.9 mmol/L 0.4-1.9 Results called to [id number] by ANTOINETTE 10/25/18 1224Critical results verified and read back by Nurse? Y CBC W/AUTO [id number] 09:48:00* Test Item Value Reference Range Comments WHITE BLOOD CELL (test code=WBC) 10.8 K/mm3 4.5-12.5 RED BLOOD CELL (test code=RBC) 3.39 mill/mm3 3.7-5.2 HEMOGLOBIN (test code=HGB) 9.2 gram/dL 11.5-15.5 HEMATOCRIT (test code=HCT) 29.8 % 36.0-46.0 MEAN CELL VOLUME (test code=MCV) 87.9 fL 80-98 MEAN CELL HGB (test code=MCH) 27.1 picogram 27.0-33.0 MEAN CELL HGB CONCETRATION (test code=MCHC) 30.9 gram/dL 33.0-36.0 RED CELL DISTRIBUTION WIDTH (test code=RDW) 17.6 % 11.6-16.2 RED CELL DISTRIBUTION WIDTH SD (test code=RDW-SD) 54.2 fL 37.0-51.0 PLATELET COUNT (test code=PLT) 56 K/mm3 150-450 MEAN PLATELET VOLUME (test code=MPV) TEST NOT PERFORMED fL 6.7-11.0 NEUTROPHIL % (test code=NT%) 75.3 % 39.0-69.0 IMMATURE GRANULOCYTE % (test code=IG%) 1.3 % 0.0-5.0 LYMPHOCYTE % (test code=LY%) 16.3 % 25.0-55.0 MONOCYTE % (test code=MO%) 3.6 % 0.0-10.0 EOSINOPHIL % (test code=EO%) 3.4 % 0.0-5.0 BASOPHIL % (test code=BA%) 0.1 % 0.0-1.0 NUCLEATED RBC % (test code=NRBC%) 0.0 % 0-0 NEUTROPHIL # (test code=NT#) 8.10 K/mm3 1.8-7.7 IMMATURE GRANULOCYTE # (test code=IG#) 0.14 x10 3/uL 0-0.03 LYMPHOCYTE # (test code=LY#) 1.76 K/mm3 1.0-5.0 MONOCYTE # (test code=MO#) 0.39 K/mm3 0-0.8 EOSINOPHIL # (test code=EO#) 0.37 K/mm3 0.0-0.5 BASOPHIL # (test code=BA#) 0.01 K/mm3 0.0-0.2 NUCLEATED RBC # (test code=NRBC#) 0.00 K/mm3 0.0-0.1 MANUAL DIFF REQUIRED (test code=MDIFF) NO, ONLY SCAN NEEDED DIFFERENTIAL [id number] 09:48:00* Test Item Value Reference Range Comments STAIN ACCEPTABILITY (test code=STN ACCEPTABLE) STAIN ACCEPTABLE ANISOCYTOSIS (test code=ANISO) 2+ MACROCYTOSIS (test code=MACR) 2+ PLATELET ESTIMATE (test code=PLTEST) DECREASED PLATELET MORPHOLOGY (test code=PLTMORPH) NORMAL COMPREHENSIVE METABOLIC [id number] 07:48:00* Test Item Value Reference Range Comments SODIUM (test code=NA) 135 mmol/L 136-145 RESULT VERIFIED BY REPEAT ANALYSIS POTASSIUM (test code=K) 4.1 mmol/L 3.5-5.1 CHLORIDE (test code=CL) 102.0 mmol/L 98-107 CARBON DIOXIDE (test code=CO2) 21.0 mmol/L 21-32 ANION GAP (test code=GAP) 16.1 10-20 GLUCOSE (test code=GLU) 138 mg/dL 74-106 BLOOD UREA NITROGEN (test code=BUN) 32 mg/dL 7-18 GLOMERULAR FILTRATION RATE (test code=GFR) 26 mL/min >=60 Estimated GFR by using Modified MDRD formula.Chronic kidney disease is defined as either kidney damageor GFR <60 mL/min/1.73 m2 for >3 months. CREATININE (test code=CREAT) 2.00 mg/dL 0.55-1.02 Note change in reference range due to change in reagent. BUN/CREATININE RATIO (test code=BUN/CREA) 16.0 10-20 TOTAL PROTEIN (test code=PROT) 4.9 gram/dL 6.4-8.2 ALBUMIN (test code=ALB) 1.4 g/dL 3.4-5.0 GLOBULIN (test code=GLOB) 3.5 gram/dL 2.7-4.2 ALBUMIN/GLOBULIN RATIO (test code=A/G) 0.4 0.75-1.50 CALCIUM (test code=CA) 7.8 mg/dL 8.5-10.1 BILIRUBIN TOTAL (test code=BILT) 2.40 mg/dL 0.0-1.0 SGOT/AST (test code=AST) 25 IUnit/L 15-37 SGPT/ALT (test code=ALT) 26 IUnit/L 12-78 ALKALINE PHOSPHATASE TOTAL (test code=ALKP) 293 IUnit/L 45-117 Note change in reference range due to change in reagent. [id number] 07:48:00* Test Item Value Reference Range Comments PHOSPHORUS (test code=PHOS) 2.8 mg/dL 2.5-4.9 [id number] 07:48:00* Test Item Value Reference Range Comments MAGNESIUM (test code=MAG) 1.6 mg/dL 1.8-2.4 - XR CHEST 1 [id number] 07:29:00 FAX: Sarita Macedo MD [place]: B St: ADM FAX: Gray Luong MD Name: SIOBHAN BARBOAS [facility] : 1965 Age/S: 53/F [address] [facility] Unit #: [id number] Loc: [address] [place] [address] Phys: Sarita Macedo MD Acct: [id number] Dis Date: Status: ADM IN PHONE #: [phone] Exam Date: 10/25/2018 0539 FAX #: [phone] Reason: intubated/vented EXAMS: CPT CODE: [id number] XR CHEST 1 V [id number] EXAM: Chest x-ray, one view; INFORMATION: Septic shock; pneumonia; IMPRESSION: 1. Persistent dense left lower lobe infiltrate. 2. The endotracheal tube has been partially withdrawn. It is well- positioned with its tip 2.5 cm up above the dave. 3. No further change compared with yesterday's study. at 0729 Reported and signed by: Jameel Alvarez M.D. CC: Sarita Macedo MD; Gray Knott Technologist: HARLEY Lopes Trnscrd Date/Time/By: 10/25/2018 (07) : By: [email or web address] Orig Print D/T: S: 10/25/2018 (9694) PAGE 1 Signed Report CBC W/AUTO [id number] 07:09:00* Test Item Value Reference Range Comments WHITE BLOOD CELL (test code=WBC) 10.8 K/mm3 4.5-12.5 RED BLOOD CELL (test code=RBC) 3.39 mill/mm3 3.7-5.2 HEMOGLOBIN (test code=HGB) 9.2 gram/dL 11.5-15.5 HEMATOCRIT (test code=HCT) 29.8 % 36.0-46.0 MEAN CELL VOLUME (test code=MCV) 87.9 fL 80-98 MEAN CELL HGB (test code=MCH) 27.1 picogram 27.0-33.0 MEAN CELL HGB CONCETRATION (test code=MCHC) 30.9 gram/dL 33.0-36.0 RED CELL DISTRIBUTION WIDTH (test code=RDW) 17.6 % 11.6-16.2 RED CELL DISTRIBUTION WIDTH SD (test code=RDW-SD) 54.2 fL 37.0-51.0 PLATELET COUNT (test code=PLT) 56 K/mm3 150-450 MEAN PLATELET VOLUME (test code=MPV) TEST NOT PERFORMED fL 6.7-11.0 NEUTROPHIL % (test code=NT%) 75.3 % 39.0-69.0 IMMATURE GRANULOCYTE % (test code=IG%) 1.3 % 0.0-5.0 LYMPHOCYTE % (test code=LY%) 16.3 % 25.0-55.0 MONOCYTE % (test code=MO%) 3.6 % 0.0-10.0 EOSINOPHIL % (test code=EO%) 3.4 % 0.0-5.0 BASOPHIL % (test code=BA%) 0.1 % 0.0-1.0 NUCLEATED RBC % (test code=NRBC%) 0.0 % 0-0 NEUTROPHIL # (test code=NT#) 8.10 K/mm3 1.8-7.7 IMMATURE GRANULOCYTE # (test code=IG#) 0.14 x10 3/uL 0-0.03 LYMPHOCYTE # (test code=LY#) 1.76 K/mm3 1.0-5.0 MONOCYTE # (test code=MO#) 0.39 K/mm3 0-0.8 EOSINOPHIL # (test code=EO#) 0.37 K/mm3 0.0-0.5 BASOPHIL # (test code=BA#) 0.01 K/mm3 0.0-0.2 NUCLEATED RBC # (test code=NRBC#) 0.00 K/mm3 0.0-0.1 MANUAL DIFF REQUIRED (test code=MDIFF) NO, ONLY SCAN NEEDED DIFFERENTIAL [id number] 07:09:00* Test Item Value Reference Range Comments STAIN ACCEPTABILITY (test code=STN ACCEPTABLE) CABOT RINGS (test code=CAB) MORPHOLOGY COMMENT (test code=MOC) PLATELET ESTIMATE (test code=PLTEST) PLATELET MORPHOLOGY (test code=PLTMORPH) CBC W/AUTO [id number] 07:09:00* Test Item Value Reference Range Comments WHITE BLOOD CELL (test code=WBC) 10.8 K/mm3 4.5-12.5 RED BLOOD CELL (test code=RBC) 3.39 mill/mm3 3.7-5.2 HEMOGLOBIN (test code=HGB) 9.2 gram/dL 11.5-15.5 HEMATOCRIT (test code=HCT) 29.8 % 36.0-46.0 MEAN CELL VOLUME (test code=MCV) 87.9 fL 80-98 MEAN CELL HGB (test code=MCH) 27.1 picogram 27.0-33.0 MEAN CELL HGB CONCETRATION (test code=MCHC) 30.9 gram/dL 33.0-36.0 RED CELL DISTRIBUTION WIDTH (test code=RDW) 17.6 % 11.6-16.2 RED CELL DISTRIBUTION WIDTH SD (test code=RDW-SD) 54.2 fL 37.0-51.0 PLATELET COUNT (test code=PLT) 56 K/mm3 150-450 MEAN PLATELET VOLUME (test code=MPV) TEST NOT PERFORMED fL 6.7-11.0 NEUTROPHIL % (test code=NT%) 75.3 % 39.0-69.0 IMMATURE GRANULOCYTE % (test code=IG%) 1.3 % 0.0-5.0 LYMPHOCYTE % (test code=LY%) 16.3 % 25.0-55.0 MONOCYTE % (test code=MO%) 3.6 % 0.0-10.0 EOSINOPHIL % (test code=EO%) 3.4 % 0.0-5.0 BASOPHIL % (test code=BA%) 0.1 % 0.0-1.0 NUCLEATED RBC % (test code=NRBC%) 0.0 % 0-0 NEUTROPHIL # (test code=NT#) 8.10 K/mm3 1.8-7.7 IMMATURE GRANULOCYTE # (test code=IG#) 0.14 x10 3/uL 0-0.03 LYMPHOCYTE # (test code=LY#) 1.76 K/mm3 1.0-5.0 MONOCYTE # (test code=MO#) 0.39 K/mm3 0-0.8 EOSINOPHIL # (test code=EO#) 0.37 K/mm3 0.0-0.5 BASOPHIL # (test code=BA#) 0.01 K/mm3 0.0-0.2 NUCLEATED RBC # (test code=NRBC#) 0.00 K/mm3 0.0-0.1 MANUAL DIFF REQUIRED (test code=MDIFF) NO, ONLY SCAN NEEDED DIFFERENTIAL [id number] 07:09:00* Test Item Value Reference Range Comments STAIN ACCEPTABILITY (test code=STN ACCEPTABLE) MORPHOLOGY COMMENT (test code=MOC) PLATELET ESTIMATE (test code=PLTEST) PLATELET MORPHOLOGY (test code=PLTMORPH) CBC W/AUTO [id number] 07:08:00* Test Item Value Reference Range Comments WHITE BLOOD CELL (test code=WBC) 10.8 K/mm3 4.5-12.5 RED BLOOD CELL (test code=RBC) 3.39 mill/mm3 3.7-5.2 HEMOGLOBIN (test code=HGB) 9.2 gram/dL 11.5-15.5 HEMATOCRIT (test code=HCT) 29.8 % 36.0-46.0 MEAN CELL VOLUME (test code=MCV) 87.9 fL 80-98 MEAN CELL HGB (test code=MCH) 27.1 picogram 27.0-33.0 MEAN CELL HGB CONCETRATION (test code=MCHC) 30.9 gram/dL 33.0-36.0 RED CELL DISTRIBUTION WIDTH (test code=RDW) 17.6 % 11.6-16.2 RED CELL DISTRIBUTION WIDTH SD (test code=RDW-SD) 54.2 fL 37.0-51.0 PLATELET COUNT (test code=PLT) 56 K/mm3 150-450 MEAN PLATELET VOLUME (test code=MPV) TEST NOT PERFORMED fL 6.7-11.0 NEUTROPHIL % (test code=NT%) 75.3 % 39.0-69.0 IMMATURE GRANULOCYTE % (test code=IG%) 1.3 % 0.0-5.0 LYMPHOCYTE % (test code=LY%) 16.3 % 25.0-55.0 MONOCYTE % (test code=MO%) 3.6 % 0.0-10.0 EOSINOPHIL % (test code=EO%) 3.4 % 0.0-5.0 BASOPHIL % (test code=BA%) 0.1 % 0.0-1.0 NUCLEATED RBC % (test code=NRBC%) 0.0 % 0-0 NEUTROPHIL # (test code=NT#) 8.10 K/mm3 1.8-7.7 IMMATURE GRANULOCYTE # (test code=IG#) 0.14 x10 3/uL 0-0.03 LYMPHOCYTE # (test code=LY#) 1.76 K/mm3 1.0-5.0 MONOCYTE # (test code=MO#) 0.39 K/mm3 0-0.8 EOSINOPHIL # (test code=EO#) 0.37 K/mm3 0.0-0.5 BASOPHIL # (test code=BA#) 0.01 K/mm3 0.0-0.2 NUCLEATED RBC # (test code=NRBC#) 0.00 K/mm3 0.0-0.1 MANUAL DIFF REQUIRED (test code=MDIFF) NO, ONLY SCAN NEEDED DIFFERENTIAL [id number] 07:08:00* Test Item Value Reference Range Comments STAIN ACCEPTABILITY (test code=STN ACCEPTABLE) CABOT RINGS (test code=CAB) MORPHOLOGY COMMENT (test code=MOC) PLATELET ESTIMATE (test code=PLTEST) PLATELET MORPHOLOGY (test code=PLTMORPH) CBC W/AUTO [id number] 07:08:00* Test Item Value Reference Range Comments WHITE BLOOD CELL (test code=WBC) 10.8 K/mm3 4.5-12.5 RED BLOOD CELL (test code=RBC) 3.39 mill/mm3 3.7-5.2 HEMOGLOBIN (test code=HGB) 9.2 gram/dL 11.5-15.5 HEMATOCRIT (test code=HCT) 29.8 % 36.0-46.0 MEAN CELL VOLUME (test code=MCV) 87.9 fL 80-98 MEAN CELL HGB (test code=MCH) 27.1 picogram 27.0-33.0 MEAN CELL HGB CONCETRATION (test code=MCHC) 30.9 gram/dL 33.0-36.0 RED CELL DISTRIBUTION WIDTH (test code=RDW) 17.6 % 11.6-16.2 RED CELL DISTRIBUTION WIDTH SD (test code=RDW-SD) 54.2 fL 37.0-51.0 PLATELET COUNT (test code=PLT) 56 K/mm3 150-450 MEAN PLATELET VOLUME (test code=MPV) TEST NOT PERFORMED fL 6.7-11.0 NEUTROPHIL % (test code=NT%) 75.3 % 39.0-69.0 IMMATURE GRANULOCYTE % (test code=IG%) 1.3 % 0.0-5.0 LYMPHOCYTE % (test code=LY%) 16.3 % 25.0-55.0 MONOCYTE % (test code=MO%) 3.6 % 0.0-10.0 EOSINOPHIL % (test code=EO%) 3.4 % 0.0-5.0 BASOPHIL % (test code=BA%) 0.1 % 0.0-1.0 NUCLEATED RBC % (test code=NRBC%) 0.0 % 0-0 NEUTROPHIL # (test code=NT#) 8.10 K/mm3 1.8-7.7 IMMATURE GRANULOCYTE # (test code=IG#) 0.14 x10 3/uL 0-0.03 LYMPHOCYTE # (test code=LY#) 1.76 K/mm3 1.0-5.0 MONOCYTE # (test code=MO#) 0.39 K/mm3 0-0.8 EOSINOPHIL # (test code=EO#) 0.37 K/mm3 0.0-0.5 BASOPHIL # (test code=BA#) 0.01 K/mm3 0.0-0.2 NUCLEATED RBC # (test code=NRBC#) 0.00 K/mm3 0.0-0.1 MANUAL DIFF REQUIRED (test code=MDIFF) NO, ONLY SCAN NEEDED DIFFERENTIAL [id number] 07:08:00* Test Item Value Reference Range Comments STAIN ACCEPTABILITY (test code=STN ACCEPTABLE) CABOT RINGS (test code=CAB) MORPHOLOGY COMMENT (test code=MOC) PLATELET ESTIMATE (test code=PLTEST) PLATELET MORPHOLOGY (test code=PLTMORPH) ARTERIAL BLOOD [id number] 05:25:00* Test Item Value Reference Range Comments ARTERIAL BLOOD GAS PH (test code=PHA) 7.44 7.35-7.45 ARTERIAL BLOOD GAS PCO2 (test code=PCO2A) 37.3 mm Hg 35-45 ARTERIAL BLOOD GAS PO2 (test code=PO2A) 227.2 mmHg 80-100 BICARBONATE TOTAL HCO3 (test code=HCO3) 24.9 mmol/L 23.0-27.0 BASE EXCESS (test code=TERRENCE) 0.9 mmol/L -3.0-5.0 ABG O2 SATURATION (test code=SATA) 99.1 % 90.0-98.0 ABG TYPE (test code=TYPEA) Arterial FIO2 (test code=FIO2A) 70.0 ABG VENT MODE (test code=MODEA) Assist Control ABG VENT RESP RATE (test code=RRA) 16.0 per min ABG TIDAL VOLUME (test code=TVA) 420.0 mL ABG PEEP (test code=PEEPA) 5.0 cmH2O ABG SITE (test code=SITEA) ARTERIAL LINE MODIFIED ALLENS (test code=MODALL) Yes CHECK PERFORMED HEMATOCRIT (test code=HCT/ABG) 31 % 35-47 TOTAL HGB (test code=THB) 10.4 gram/dL 11.5-15.5 HGB O2 SAT (test code=HBOSAT) 98.3 % 94.00-98.00 CARBOXYHEMOGLOBIN (test code=HOHGBT) 0.3 %totalHg 0.5-1.5 Results called to and read back by Cece Davis 05:24 - 10/25/2018; by jigar METHEMOGLOBIN (test code=METHGB) 0.5 % 0.0-1.50 O2 CONTENT (test code=O2CT) 14.9 % vol 18.0-22.0 CBC W/MANUAL [id number] 20:20:00* Test Item Value Reference Range Comments WHITE BLOOD CELL (test code=WBC) 10.1 K/mm3 4.5-12.5 RED BLOOD CELL (test code=RBC) 3.12 mill/mm3 3.7-5.2 HEMOGLOBIN (test code=HGB) 8.0 gram/dL 11.5-15.5 HEMATOCRIT (test code=HCT) 27.1 % 36.0-46.0 MEAN CELL VOLUME (test code=MCV) 86.9 fL 80-98 MEAN CELL HGB (test code=MCH) 25.6 picogram 27.0-33.0 MEAN CELL HGB CONCETRATION (test code=MCHC) 29.5 gram/dL 33.0-36.0 RED CELL DISTRIBUTION WIDTH (test code=RDW) 17.2 % 11.6-16.2 RED CELL DISTRIBUTION WIDTH SD (test code=RDW-SD) 52.7 fL 37.0-51.0 PLATELET COUNT (test code=PLT) 54 K/mm3 150-450 MEAN PLATELET VOLUME (test code=MPV) 0.0 fL 6.7-11.0 IMMATURE GRANULOCYTE % (test code=IG%) 1.3 % 0.0-5.0 NUCLEATED RBC % (test code=NRBC%) 0.2 % 0-0 NEUTROPHIL # (test code=NT#) 7.73 K/mm3 1.8-7.7 IMMATURE GRANULOCYTE # (test code=IG#) 0.13 x10 3/uL 0-0.03 LYMPHOCYTE # (test code=LY#) 1.59 K/mm3 1.0-5.0 MONOCYTE # (test code=MO#) 0.54 K/mm3 0-0.8 EOSINOPHIL # (test code=EO#) 0.14 K/mm3 0.0-0.5 BASOPHIL # (test code=BA#) 0.01 K/mm3 0.0-0.2 NUCLEATED RBC # (test code=NRBC#) 0.02 K/mm3 0.0-0.1 MANUAL DIFF REQUIRED (test code=MDIFF) YES STAIN ACCEPTABILITY (test code=STN ACCEPTABLE) STAIN ACCEPTABLE TOTAL CELLS COUNTED (test code=TCC) 115 #CELLS SEGMENTED NEUTROPHILS (test code=SEG) 84.3 % 39-69 BAND NEUTROPHIL (test code=BAND) 0 % 0-10 LYMPHOCYTE (test code=LYMPH) 14.8 % 25-55 REACTIVE LYMPH (test code=RELYMPH) 0 % MONOCYTE (test code=MON) 0.9 % 0-10 EOSINOPHIL (test code=EOS) 0 % 0.0-5.0 BASOPHIL (test code=BASO) 0 % 0-1.0 METAMYELOCYTE (test code=META) 0 % 0-0 MYELOCYTE (test code=MYELO) 0 % 0.0-0.0 PROMYELOCYTE (test code=PROM) 0 % 0-0 POIKILOCYTOSIS (test code=POIK) 1+ ANISOCYTOSIS (test code=ANISO) 2+ MACROCYTOSIS (test code=MACR) 2+ PLATELET ESTIMATE (test code=PLTEST) DECREASED PLATELET MORPHOLOGY (test code=PLTMORPH) NORMAL IMMATURE FORMS (test code=IMMAT) 0 % URINALYSIS [id number] 20:17:00* Test Item Value Reference Range Comments UA COLOR (test code=COLU) YELLOW YELLOW UA APPEARANCE (test code=APPU) TURBID CLEAR UA GLUCOSE DIPSTICK (test code=DGLUU) NEGATIVE mg/dL NEGATIVE UA BILIRUBIN DIPSTICK (test code=BILU) NEGATIVE mg/dL NEGATIVE UA KETONE DIPSTICK (test code=KETU) NEGATIVE mg/dL NEGATIVE UA SPECIFIC GRAVITY (test code=SGU) 1.008 1.001-1.035 UA BLOOD DIPSTICK (test code=JONO) 3+ (Large) mg/dL NEGATIVE UA PH DIPSTICK (test code=AHMET) 6.0 5.0-8.0 UA PROTEIN DIPSTICK (test code=PROU) 100 (2+) mg/dL NEGATIVE UA UROBILINIOGEN DIPSTICK (test code=URO) NEGATIVE mg/dL NEGATIVE UA NITRITE DIPSTICK (test code=IFEOMA) NEGATIVE NEGATIVE UA LEUKOCYTE ESTERASE W REFLEX (test code=LEUUR) 2+ Franki/uL NEGATIVE UA WBC (test code=WBCU) >50 per HPF 0-5 UA RBC (test code=RBCU) >20 #/HPF 0-5 UA WBC CLUMPS (test code=WBCUCL) >10 /HPF NONE UA EPITHELIAL CELLS (test code=EPIU) MANY per HPF FEW UA BACTERIA (test code=BACU) FEW #/HPF NONE UA MUCUS (test code=MUCU) FEW #/LPF FEW UA YEAST (test code=YEASTU) FEW #/HPF NONE Urine Source? Clean CatchURINALYSIS [id number] 20:11:00* Test Item Value Reference Range Comments UA COLOR (test code=COLU) YELLOW YELLOW UA APPEARANCE (test code=APPU) TURBID CLEAR UA GLUCOSE DIPSTICK (test code=DGLUU) NEGATIVE mg/dL NEGATIVE UA BILIRUBIN DIPSTICK (test code=BILU) NEGATIVE mg/dL NEGATIVE UA KETONE DIPSTICK (test code=KETU) NEGATIVE mg/dL NEGATIVE UA SPECIFIC GRAVITY (test code=SGU) 1.008 1.001-1.035 UA BLOOD DIPSTICK (test code=JONO) 3+ (Large) mg/dL NEGATIVE UA PH DIPSTICK (test code=AHMET) 6.0 5.0-8.0 UA PROTEIN DIPSTICK (test code=PROU) 100 (2+) mg/dL NEGATIVE UA UROBILINIOGEN DIPSTICK (test code=URO) NEGATIVE mg/dL NEGATIVE UA NITRITE DIPSTICK (test code=IFEOMA) NEGATIVE NEGATIVE UA LEUKOCYTE ESTERASE W REFLEX (test code=LEUUR) 2+ Franki/uL NEGATIVE UA WBC (test code=WBCU) per HPF 0-5 Urine Source? Clean CatchBASIC METABOLIC [id number] 19:00:00* Test Item Value Reference Range Comments SODIUM (test code=NA) 141 mmol/L 136-145 POTASSIUM (test code=K) 4.0 mmol/L 3.5-5.1 CHLORIDE (test code=CL) 105.0 mmol/L 98-107 CARBON DIOXIDE (test code=CO2) 27.0 mmol/L 21-32 ANION GAP (test code=GAP) 13.0 10-20 GLUCOSE (test code=GLU) 136 mg/dL 74-106 BLOOD UREA NITROGEN (test code=BUN) 33 mg/dL 7-18 GLOMERULAR FILTRATION RATE (test code=GFR) 28 mL/min >=60 Estimated GFR by using Modified MDRD formula.Chronic kidney disease is defined as either kidney damageor GFR <60 mL/min/1.73 m2 for >3 months. CREATININE (test code=CREAT) 1.90 mg/dL 0.55-1.02 Note change in reference range due to change in reagent. BUN/CREATININE RATIO (test code=BUN/CREA) 17.4 10-20 CALCIUM (test code=CA) 8.1 mg/dL 8.5-10.1 THYROID PROFILE [id number] 19:00:00* Test Item Value Reference Range Comments T3 UPTAKE (test code=T3UP) 41.0 % 30.0-40.0 T4 (THYROXINE) (test code=T4) 5.6 ug/dL 4.5-13.9 T7 (FREE THYROXINE INDEX) (test code=T7) 2.29 FTI 1.3-5.1 THYROID STIMULATING HORMONE (test code=TSH) 9.920 uIU/mL 0.36-3.74 TSH REFERENCE RANGES: EUTHYROID: 0.35 - 4.3 mIU/mL HYPO : > 5.5 mIU/mL HYPER : < 0.35 mIU/mL BASIC METABOLIC [id number] 18:46:00* Test Item Value Reference Range Comments SODIUM (test code=NA) 141 mmol/L 136-145 POTASSIUM (test code=K) 4.0 mmol/L 3.5-5.1 CHLORIDE (test code=CL) 105.0 mmol/L 98-107 CARBON DIOXIDE (test code=CO2) mmol/L 21-32 ANION GAP (test code=GAP) 10-20 GLUCOSE (test code=GLU) mg/dL 74-106 BLOOD UREA NITROGEN (test code=BUN) mg/dL 7-18 GLOMERULAR FILTRATION RATE (test code=GFR) mL/min >=60 CREATININE (test code=CREAT) mg/dL 0.55-1.02 BUN/CREATININE RATIO (test code=BUN/CREA) 10-20 CALCIUM (test code=CA) mg/dL 8.5-10.1 THYROID PROFILE [id number] 18:46:00* Test Item Value Reference Range Comments T3 UPTAKE (test code=T3UP) % 30.0-40.0 T4 (THYROXINE) (test code=T4) ug/dL 4.5-13.9 T7 (FREE THYROXINE INDEX) (test code=T7) FTI 1.3-5.1 THYROID STIMULATING HORMONE (test code=TSH) uIU/mL 0.36-3.74 CBC W/MANUAL [id number] 18:42:00* Test Item Value Reference Range Comments WHITE BLOOD CELL (test code=WBC) 10.1 K/mm3 4.5-12.5 RED BLOOD CELL (test code=RBC) 3.12 mill/mm3 3.7-5.2 HEMOGLOBIN (test code=HGB) 8.0 gram/dL 11.5-15.5 HEMATOCRIT (test code=HCT) 27.1 % 36.0-46.0 MEAN CELL VOLUME (test code=MCV) 86.9 fL 80-98 MEAN CELL HGB (test code=MCH) 25.6 picogram 27.0-33.0 MEAN CELL HGB CONCETRATION (test code=MCHC) 29.5 gram/dL 33.0-36.0 RED CELL DISTRIBUTION WIDTH (test code=RDW) 17.2 % 11.6-16.2 RED CELL DISTRIBUTION WIDTH SD (test code=RDW-SD) 52.7 fL 37.0-51.0 PLATELET COUNT (test code=PLT) 54 K/mm3 150-450 MEAN PLATELET VOLUME (test code=MPV) 0.0 fL 6.7-11.0 IMMATURE GRANULOCYTE % (test code=IG%) 1.3 % 0.0-5.0 NUCLEATED RBC % (test code=NRBC%) 0.2 % 0-0 NEUTROPHIL # (test code=NT#) 7.73 K/mm3 1.8-7.7 IMMATURE GRANULOCYTE # (test code=IG#) 0.13 x10 3/uL 0-0.03 LYMPHOCYTE # (test code=LY#) 1.59 K/mm3 1.0-5.0 MONOCYTE # (test code=MO#) 0.54 K/mm3 0-0.8 EOSINOPHIL # (test code=EO#) 0.14 K/mm3 0.0-0.5 BASOPHIL # (test code=BA#) 0.01 K/mm3 0.0-0.2 NUCLEATED RBC # (test code=NRBC#) 0.02 K/mm3 0.0-0.1 MANUAL DIFF REQUIRED (test code=MDIFF) YES STAIN ACCEPTABILITY (test code=STN ACCEPTABLE) TOTAL CELLS COUNTED (test code=TCC) #CELLS SEGMENTED NEUTROPHILS (test code=SEG) % 39-69 LYMPHOCYTE (test code=LYMPH) % 25-55 MONOCYTE (test code=MON) % 0-10 EOSINOPHIL (test code=EOS) % 0.0-5.0 CABOT RINGS (test code=CAB) MORPHOLOGY COMMENT (test code=MOC) PLATELET ESTIMATE (test code=PLTEST) PLATELET MORPHOLOGY (test code=PLTMORPH) CBC W/MANUAL [id number] 18:42:00* Test Item Value Reference Range Comments WHITE BLOOD CELL (test code=WBC) 10.1 K/mm3 4.5-12.5 RED BLOOD CELL (test code=RBC) 3.12 mill/mm3 3.7-5.2 HEMOGLOBIN (test code=HGB) 8.0 gram/dL 11.5-15.5 HEMATOCRIT (test code=HCT) 27.1 % 36.0-46.0 MEAN CELL VOLUME (test code=MCV) 86.9 fL 80-98 MEAN CELL HGB (test code=MCH) 25.6 picogram 27.0-33.0 MEAN CELL HGB CONCETRATION (test code=MCHC) 29.5 gram/dL 33.0-36.0 RED CELL DISTRIBUTION WIDTH (test code=RDW) 17.2 % 11.6-16.2 RED CELL DISTRIBUTION WIDTH SD (test code=RDW-SD) 52.7 fL 37.0-51.0 PLATELET COUNT (test code=PLT) 54 K/mm3 150-450 MEAN PLATELET VOLUME (test code=MPV) 0.0 fL 6.7-11.0 IMMATURE GRANULOCYTE % (test code=IG%) 1.3 % 0.0-5.0 NUCLEATED RBC % (test code=NRBC%) 0.2 % 0-0 NEUTROPHIL # (test code=NT#) 7.73 K/mm3 1.8-7.7 IMMATURE GRANULOCYTE # (test code=IG#) 0.13 x10 3/uL 0-0.03 LYMPHOCYTE # (test code=LY#) 1.59 K/mm3 1.0-5.0 MONOCYTE # (test code=MO#) 0.54 K/mm3 0-0.8 EOSINOPHIL # (test code=EO#) 0.14 K/mm3 0.0-0.5 BASOPHIL # (test code=BA#) 0.01 K/mm3 0.0-0.2 NUCLEATED RBC # (test code=NRBC#) 0.02 K/mm3 0.0-0.1 MANUAL DIFF REQUIRED (test code=MDIFF) YES STAIN ACCEPTABILITY (test code=STN ACCEPTABLE) TOTAL CELLS COUNTED (test code=TCC) #CELLS SEGMENTED NEUTROPHILS (test code=SEG) % 39-69 LYMPHOCYTE (test code=LYMPH) % 25-55 MONOCYTE (test code=MON) % 0-10 EOSINOPHIL (test code=EOS) % 0.0-5.0 MORPHOLOGY COMMENT (test code=MOC) PLATELET ESTIMATE (test code=PLTEST) PLATELET MORPHOLOGY (test code=PLTMORPH) CBC W/MANUAL [id number] 18:42:00* Test Item Value Reference Range Comments WHITE BLOOD CELL (test code=WBC) 10.1 K/mm3 4.5-12.5 RED BLOOD CELL (test code=RBC) 3.12 mill/mm3 3.7-5.2 HEMOGLOBIN (test code=HGB) 8.0 gram/dL 11.5-15.5 HEMATOCRIT (test code=HCT) 27.1 % 36.0-46.0 MEAN CELL VOLUME (test code=MCV) 86.9 fL 80-98 MEAN CELL HGB (test code=MCH) 25.6 picogram 27.0-33.0 MEAN CELL HGB CONCETRATION (test code=MCHC) 29.5 gram/dL 33.0-36.0 RED CELL DISTRIBUTION WIDTH (test code=RDW) 17.2 % 11.6-16.2 RED CELL DISTRIBUTION WIDTH SD (test code=RDW-SD) 52.7 fL 37.0-51.0 PLATELET COUNT (test code=PLT) 54 K/mm3 150-450 MEAN PLATELET VOLUME (test code=MPV) 0.0 fL 6.7-11.0 IMMATURE GRANULOCYTE % (test code=IG%) 1.3 % 0.0-5.0 NUCLEATED RBC % (test code=NRBC%) 0.2 % 0-0 NEUTROPHIL # (test code=NT#) 7.73 K/mm3 1.8-7.7 IMMATURE GRANULOCYTE # (test code=IG#) 0.13 x10 3/uL 0-0.03 LYMPHOCYTE # (test code=LY#) 1.59 K/mm3 1.0-5.0 MONOCYTE # (test code=MO#) 0.54 K/mm3 0-0.8 EOSINOPHIL # (test code=EO#) 0.14 K/mm3 0.0-0.5 BASOPHIL # (test code=BA#) 0.01 K/mm3 0.0-0.2 NUCLEATED RBC # (test code=NRBC#) 0.02 K/mm3 0.0-0.1 MANUAL DIFF REQUIRED (test code=MDIFF) YES STAIN ACCEPTABILITY (test code=STN ACCEPTABLE) TOTAL CELLS COUNTED (test code=TCC) #CELLS SEGMENTED NEUTROPHILS (test code=SEG) % 39-69 LYMPHOCYTE (test code=LYMPH) % 25-55 MONOCYTE (test code=MON) % 0-10 MORPHOLOGY COMMENT (test code=MOC) PLATELET ESTIMATE (test code=PLTEST) PLATELET MORPHOLOGY (test code=PLTMORPH) [id number] 18:41:00* Test Item Value Reference Range Comments POTASSIUM (test code=K) 4.0 mmol/L 3.5-5.1 CBC W/MANUAL [id number] 18:41:00* Test Item Value Reference Range Comments WHITE BLOOD CELL (test code=WBC) 10.1 K/mm3 4.5-12.5 RED BLOOD CELL (test code=RBC) 3.12 mill/mm3 3.7-5.2 HEMOGLOBIN (test code=HGB) 8.0 gram/dL 11.5-15.5 HEMATOCRIT (test code=HCT) 27.1 % 36.0-46.0 MEAN CELL VOLUME (test code=MCV) 86.9 fL 80-98 MEAN CELL HGB (test code=MCH) 25.6 picogram 27.0-33.0 MEAN CELL HGB CONCETRATION (test code=MCHC) 29.5 gram/dL 33.0-36.0 RED CELL DISTRIBUTION WIDTH (test code=RDW) 17.2 % 11.6-16.2 RED CELL DISTRIBUTION WIDTH SD (test code=RDW-SD) 52.7 fL 37.0-51.0 PLATELET COUNT (test code=PLT) 54 K/mm3 150-450 MEAN PLATELET VOLUME (test code=MPV) 0.0 fL 6.7-11.0 IMMATURE GRANULOCYTE % (test code=IG%) 1.3 % 0.0-5.0 NUCLEATED RBC % (test code=NRBC%) 0.2 % 0-0 NEUTROPHIL # (test code=NT#) 7.73 K/mm3 1.8-7.7 IMMATURE GRANULOCYTE # (test code=IG#) 0.13 x10 3/uL 0-0.03 LYMPHOCYTE # (test code=LY#) 1.59 K/mm3 1.0-5.0 MONOCYTE # (test code=MO#) 0.54 K/mm3 0-0.8 EOSINOPHIL # (test code=EO#) 0.14 K/mm3 0.0-0.5 BASOPHIL # (test code=BA#) 0.01 K/mm3 0.0-0.2 NUCLEATED RBC # (test code=NRBC#) 0.02 K/mm3 0.0-0.1 MANUAL DIFF REQUIRED (test code=MDIFF) YES STAIN ACCEPTABILITY (test code=STN ACCEPTABLE) TOTAL CELLS COUNTED (test code=TCC) #CELLS SEGMENTED NEUTROPHILS (test code=SEG) % 39-69 LYMPHOCYTE (test code=LYMPH) % 25-55 MONOCYTE (test code=MON) % 0-10 EOSINOPHIL (test code=EOS) % 0.0-5.0 CABOT RINGS (test code=CAB) MORPHOLOGY COMMENT (test code=MOC) PLATELET ESTIMATE (test code=PLTEST) PLATELET MORPHOLOGY (test code=PLTMORPH) CBC W/MANUAL [id number] 18:41:00* Test Item Value Reference Range Comments WHITE BLOOD CELL (test code=WBC) 10.1 K/mm3 4.5-12.5 RED BLOOD CELL (test code=RBC) 3.12 mill/mm3 3.7-5.2 HEMOGLOBIN (test code=HGB) 8.0 gram/dL 11.5-15.5 HEMATOCRIT (test code=HCT) 27.1 % 36.0-46.0 MEAN CELL VOLUME (test code=MCV) 86.9 fL 80-98 MEAN CELL HGB (test code=MCH) 25.6 picogram 27.0-33.0 MEAN CELL HGB CONCETRATION (test code=MCHC) 29.5 gram/dL 33.0-36.0 RED CELL DISTRIBUTION WIDTH (test code=RDW) 17.2 % 11.6-16.2 RED CELL DISTRIBUTION WIDTH SD (test code=RDW-SD) 52.7 fL 37.0-51.0 PLATELET COUNT (test code=PLT) 54 K/mm3 150-450 MEAN PLATELET VOLUME (test code=MPV) 0.0 fL 6.7-11.0 IMMATURE GRANULOCYTE % (test code=IG%) 1.3 % 0.0-5.0 NUCLEATED RBC % (test code=NRBC%) 0.2 % 0-0 NEUTROPHIL # (test code=NT#) 7.73 K/mm3 1.8-7.7 IMMATURE GRANULOCYTE # (test code=IG#) 0.13 x10 3/uL 0-0.03 LYMPHOCYTE # (test code=LY#) 1.59 K/mm3 1.0-5.0 MONOCYTE # (test code=MO#) 0.54 K/mm3 0-0.8 EOSINOPHIL # (test code=EO#) 0.14 K/mm3 0.0-0.5 BASOPHIL # (test code=BA#) 0.01 K/mm3 0.0-0.2 NUCLEATED RBC # (test code=NRBC#) 0.02 K/mm3 0.0-0.1 MANUAL DIFF REQUIRED (test code=MDIFF) YES STAIN ACCEPTABILITY (test code=STN ACCEPTABLE) TOTAL CELLS COUNTED (test code=TCC) #CELLS SEGMENTED NEUTROPHILS (test code=SEG) % 39-69 LYMPHOCYTE (test code=LYMPH) % 25-55 MONOCYTE (test code=MON) % 0-10 EOSINOPHIL (test code=EOS) % 0.0-5.0 CABOT RINGS (test code=CAB) MORPHOLOGY COMMENT (test code=MOC) PLATELET ESTIMATE (test code=PLTEST) PLATELET MORPHOLOGY (test code=PLTMORPH) [id number] 18:21:00* Test Item Value Reference Range Comments GLUBED (test code=GLUBED) 147 mg/dL 74-106 Performed by certified transit mixer operator at [facility] [id number] 16:29:00* Test Item Value Reference Range Comments HEMOGLOBIN (test code=HGB) 8.0 gram/dL 11.5-15.5 RESULT VERIFIED BY REPEAT ANALYSIS [id number] 15:59:00* Test Item Value Reference Range Comments GLUBED (test code=GLUBED) 126 mg/dL 74-106 Performed by certified transit mixer operator at [facility] [id number] 13:28:00* Test Item Value Reference Range Comments POTASSIUM (test code=K) 4.1 mmol/L 3.5-5.1 [id number] 12:52:00* Test Item Value Reference Range Comments HEMOGLOBIN (test code=HGB) 12.7 gram/dL 11.5-15.5 RESULT VERIFIED BY REPEAT ANALYSIS [id number] 12:46:00* Test Item Value Reference Range Comments POTASSIUM (test code=K) 4.6 mmol/L 3.5-5.1 [id number] 12:31:00* Test Item Value Reference Range Comments GLUBED (test code=GLUBED) 225 mg/dL 74-106 Performed by certified transit mixer operator at [facility] [id number] 12:26:00* Test Item Value Reference Range Comments GLUBED (test code=GLUBED) 152 mg/dL 74-106 Performed by certified transit mixer operator at [facility] [id number] 08:22:00* Test Item Value Reference Range Comments POTASSIUM (test code=K) 6.2 mmol/L 3.5-5.1 Results called to YUE TayLAB.OA 10/24/18 0822Critical results verified and read back by Nurse? Y [id number] 08:20:00* Test Item Value Reference Range Comments GLUBED (test code=GLUBED) 112 mg/dL 74-106 Performed by certified transit mixer operator at [facility] [id number] 08:20:00* Test Item Value Reference Range Comments GLUBED (test code=GLUBED) 95 mg/dL 74-106 Performed by certified transit mixer operator at [facility] [id number] 08:04:00* Test Item Value Reference Range Comments PHOSPHORUS (test code=PHOS) 5.9 mg/dL 2.5-4.9 [id number] 08:04:00* Test Item Value Reference Range Comments MAGNESIUM (test code=MAG) 2.2 mg/dL 1.8-2.4 CALCIUM [id number] 08:04:00* Test Item Value Reference Range Comments CALCIUM IONIZED (test code=MARIAH) 1.31 mmol/L 1.12-1.32 [id number] 08:01:00* Test Item Value Reference Range Comments PHOSPHORUS (test code=PHOS) 5.9 mg/dL 2.5-4.9 [id number] 08:01:00* Test Item Value Reference Range Comments MAGNESIUM (test code=MAG) 2.2 mg/dL 1.8-2.4 CALCIUM [id number] 08:01:00* Test Item Value Reference Range Comments CALCIUM IONIZED (test code=MARIAH) mmol/L 1.12-1.32 [id number] 06:49:00* Test Item Value Reference Range Comments HEMOGLOBIN (test code=HGB) 9.6 gram/dL 11.5-15.5 ARTERIAL BLOOD [id number] 06:08:00* Test Item Value Reference Range Comments ARTERIAL BLOOD GAS PH (test code=PHA) 7.31 7.35-7.45 ARTERIAL BLOOD GAS PCO2 (test code=PCO2A) 53.6 mm Hg 35-45 ARTERIAL BLOOD GAS PO2 (test code=PO2A) 369.0 mmHg 80-100 BICARBONATE TOTAL HCO3 (test code=HCO3) 26.3 mmol/L 23.0-27.0 BASE EXCESS (test code=TERRENCE) -0.6 mmol/L -3.0-5.0 ABG O2 SATURATION (test code=SATA) 99.3 % 90.0-98.0 ABG TYPE (test code=TYPEA) Arterial FIO2 (test code=FIO2A) 100.0 ABG VENT MODE (test code=MODEA) Assist Control ABG VENT RESP RATE (test code=RRA) 14.0 per min ABG TIDAL VOLUME (test code=TVA) 420.0 mL ABG PEEP (test code=PEEPA) 5.0 cmH2O ABG SITE (test code=SITEA) ARTERIAL LINE HEMATOCRIT (test code=HCT/ABG) 32 % 35-47 TOTAL HGB (test code=THB) 10.8 gram/dL 11.5-15.5 HGB O2 SAT (test code=HBOSAT) 98.5 % 94.00-98.00 CARBOXYHEMOGLOBIN (test code=HOHGBT) 0.3 %totalHg 0.5-1.5 Results called to and read back by Chante 05:55 - 10/24/2018; by Chanel METHEMOGLOBIN (test code=METHGB) 0.5 % 0.0-1.50 O2 CONTENT (test code=O2CT) 15.9 % vol 18.0-22.0 - CT ABD PELVIS W/O [id number] 04:59:00 Name: SIOBHAN BARBOSA [facility] : 1965 Age/S: 53 / F [address] Unit #: [id number] Loc: [place] [address] Phys: Jessica Kumar MD Acct: [id number] Dis Date: Status: ADM IN PHONE #: [phone] Exam Date: 10/24/2018 0345 FAX #: [phone] Reason: ABD DISTENSION EXAMS: CPT CODE: [id number] CT ABD PELVIS W/O CONT [id number] EXAM: - CT ABD PELVIS W/O CONT HISTORY: Abdominal distention. TECHNIQUE: Axial tomograms through the abdomen and pelvis were obtained without intravenous contrast. Coronal and sagittal reformatted images are provided. This exam was performed according to our departmental dose-optimization program, which includes automated exposure control, adjustment of the mA and/or kV according to patient size and/or use of iterative reconstruction technique. COMPARISON: September 30, 2018. FINDINGS: Moderate amounts of free fluid in abdomen and pelvis. There is interval intraperitoneal fluid collection in mid and lower abdomen anteri eugenia. This could be loculated anterior to the omentum. Cirrh otic appearing liver. Gallstones. Splenomegaly. NG tube is in the body of the stomach. IVC filter is present. Left ureteral stent is prese nt. There is a percutaneous left nephrostomy tube as well. Left collette l calculi are present. There is diffuse soft tissue edema. S uprapubic catheter is present in the urinary bladder. The bowel is not dis tended. The appendix is normal in size. There is no acute osseous abnormality. IMPRESSION: Hepatic cirrhosis with portal hypertension changes. Ascites. Anasarca. Other findings as above. PAGE 1 Signed Report (CONTINUED) Name: SIOBHAN BARBOSA [facility] : 1965 Age/S: 53 / F [address] Unit #: [id number] Loc: [place] [address] Phys: Jessica Kumar MD Acct: [id number] Dis Date: Status: ADM IN PHONE #: [phone] Exam Date: 10/24/2018 034 FAX #: [phone] Reason: ABD DISTENSION EXAMS: CPT CODE: [id number] CT ABD PELVIS W/O CONT [id number] <Continued> at 0459 Reported and signed by: Kike Montilla MD CC: Jessica Kumar MD Technologist:AURELIA GALINDO CTDI: DLP: Trnscb Date/Time: 10/24/2018 (458) [email or web address] Orig Print D/T: S: 10/24/2018 (050) CTDI: DLP: PAGE 2 Signed Report - CT CHEST W/O [id number] 04:34:00 Name: SIOBHAN BARBOSA [facility] : 1965 Age/S: 53 / F [address] Unit #: [id number] Loc: [place] [address] Phys: Jessica Kumar MD Acct: [id number] Dis Date: Status: ADM IN PHONE #: [phone] Exam Date: 10/24/2018 0345 FAX #: [phone] Reason: MASS ON CXR EXAMS: CPT CODE: [id number] CT CHEST W/O CONTRAST [id number] EXAM: - CT CHEST W/O CONTRAST HISTORY: Sepsis. Respiratory failure. TECHNIQUE: Axial tomograms through the chest were obtained without intravenous contrast. Coronal and sagittal reformatted images are provided. This exam was performed according to our departmental dose-optimization program, which includes automated exposure control, adjustment of the mA and/or kV according to patient size and/or use of iterative reconstruction technique. FINDINGS: Endotracheal tube is present just above the dave. Nasogastric tube is present in the stomach. Central vascular catheter from right IJ approach is present at the cavoatrial junction. There is no pneumothorax. Infiltrates are present in left upper lung. Infiltrates and consolidation present in left lower lung. Small bilateral pleural effusions. Basilar atelectasis. No acute osseous abnormality. Limited noncontrast exam. IMPRESSION: Left lower lung infiltrates and consolidation. Left upper lung infiltra patel. This may reflect multifocal pneumonia. Small bila teral pleural effusions. ET tube is just above the dave. This can be w ithdrawn about 3 cm. Electronically Signed by Kike Montilla MD on 0 10/24/2018 at 0434 Reported and signed by: Kike Montilla MD CC: Jessica Kumar MD Technologi st:[facility] CT CTDI: DLP: Trnscb Date/Time: (043) [email or web address] Orig Print D/T: S: 10/24/2018 ( 0437) CTDI: DLP: PAGE 1 Signed Re port [id number] 04:20:00* Test Item Value Reference Range Comments GLUBED (test code=GLUBED) 52 mg/dL 74-106 Performed by certified transit mixer operator at [facility] - XR CHEST 1 [id number] 03:58:00 FAX: Jessica Kumar MD [phone] [place]: St: ADM Name: SIOBHAN ROBERTS [facility] : [birth year] Age/S: 53/F [address] [facility] Unit #: [id number] Loc: [place] [address] Phys: Jessica Kumar MD Acct: [id number] Dis Date: Status: ADM IN PHONE #: [phone] Exam Date: 10/24/2018324 FAX #: [phone] Reason: LINE PLACEMENT EXAMS: CPT CODE: [id number] XR CHEST 1 V 04070 EXAM: - XR CHEST 1 V HISTORY: Line placement. COMPARISON: Same day. FIN DINGS: Single AP view of the chest is provided. Endotrache al tube is just above the dave. A catheter from right IJ approach is pro jecting over the cavoatrial junction 2 cm below the level of dave. Patient's rotation to the left is limiting evaluation. Heart size and va scularity are within normal limits. Possible retrocardiac infiltrate or a telectasis. No effusion, pneumothorax, or acute osseous abnormality. IMPRESSION: ET tube is just above the dave. This c an be withdrawn 3 cm. Central vascular catheter is projecting over the c avoatrial junction but evaluation is limited due to suboptimal position. at 0358 Reported and signed by: Kike Montilla MD CC: Jessica Kumar MD Technologist: Kami Lopes Trngard Date/Time/By: 10/24/2018 (0358) : By: [email or web address] Orig Print D/T: S: 10/24/2018 (0401) PAGE 1 Signed Report BASIC METABOLIC [id number] 03:55:00* Test Item Value Reference Range Comments SODIUM (test code=NA) 141 mmol/L 136-145 POTASSIUM (test code=K) 5.8 mmol/L 3.5-5.1 RESULT VERIFIED BY REPEAT ANALYSIS CHLORIDE (test code=CL) 107.0 mmol/L 98-107 CARBON DIOXIDE (test code=CO2) 27.0 mmol/L 21-32 ANION GAP (test code=GAP) 12.8 10-20 GLUCOSE (test code=GLU) 69 mg/dL 74-106 BLOOD UREA NITROGEN (test code=BUN) 77 mg/dL 7-18 GLOMERULAR FILTRATION RATE (test code=GFR) 15 mL/min >=60 Estimated GFR by using Modified MDRD formula.Chronic kidney disease is defined as either kidney damageor GFR <60 mL/min/1.73 m2 for >3 months. CREATININE (test code=CREAT) 3.30 mg/dL 0.55-1.02 Note change in reference range due to change in reagent. BUN/CREATININE RATIO (test code=BUN/CREA) 23.3 10-20 CALCIUM (test code=CA) 8.4 mg/dL 8.5-10.1 ARTERIAL BLOOD [id number] 03:21:00* Test Item Value Reference Range Comments ARTERIAL BLOOD GAS PH (test code=PHA) 7.33 7.35-7.45 ARTERIAL BLOOD GAS PCO2 (test code=PCO2A) 47.4 mm Hg 35-45 ARTERIAL BLOOD GAS PO2 (test code=PO2A) 363.6 mmHg 80-100 BICARBONATE TOTAL HCO3 (test code=HCO3) 24.3 mmol/L 23.0-27.0 BASE EXCESS (test code=TERRENCE) -1.8 mmol/L -3.0-5.0 ABG O2 SATURATION (test code=SATA) 99.4 % 90.0-98.0 ABG TYPE (test code=TYPEA) Arterial FIO2 (test code=FIO2A) 100.0 ABG L/M (test code=L/M) 50.00 L/MIN ABG VENT MODE (test code=MODEA) Assist Control ABG VENT RESP RATE (test code=RRA) 14.0 per min ABG TIDAL VOLUME (test code=TVA) 420.0 mL ABG PEEP (test code=PEEPA) 5.0 cmH2O ABG SITE (test code=SITEA) Rt RADIAL ARTERY HEMATOCRIT (test code=HCT/ABG) 29 % 35-47 TOTAL HGB (test code=THB) 9.8 gram/dL 11.5-15.5 HGB O2 SAT (test code=HBOSAT) 98.3 % 94.00-98.00 CARBOXYHEMOGLOBIN (test code=HOHGBT) 0.2 %totalHg 0.5-1.5 Results called to and read back by pooja 03:20 - 10/24/2018; by xin holden METHEMOGLOBIN (test code=METHGB) 0.9 % 0.0-1.50 O2 CONTENT (test code=O2CT) 14.5 % vol 18.0-22.0 LACTIC [id number] 02:06:00* Test Item Value Reference Range Comments LACTIC ACID (test code=LACT) 1.8 mmol/L 0.4-1.9 BASIC METABOLIC [id number] 01:56:00* Test Item Value Reference Range Comments SODIUM (test code=NA) 141 mmol/L 136-145 POTASSIUM (test code=K) 7.0 mmol/L 3.5-5.1 Results called to [id number] by ANAYELI 10/24/18 0155Critical results verified and read back by Nurse? Y CHLORIDE (test code=CL) 108.0 mmol/L 98-107 CARBON DIOXIDE (test code=CO2) 24.0 mmol/L 21-32 ANION GAP (test code=GAP) 16.0 10-20 GLUCOSE (test code=GLU) 55 mg/dL 74-106 BLOOD UREA NITROGEN (test code=BUN) 80 mg/dL 7-18 GLOMERULAR FILTRATION RATE (test code=GFR) 14 mL/min >=60 Estimated GFR by using Modified MDRD formula.Chronic kidney disease is defined as either kidney damageor GFR <60 mL/min/1.73 m2 for >3 months. CREATININE (test code=CREAT) 3.40 mg/dL 0.55-1.02 Note change in reference range due to change in reagent. BUN/CREATININE RATIO (test code=BUN/CREA) 23.5 10-20 CALCIUM (test code=CA) 8.5 mg/dL 8.5-10.1 [id number] 01:55:00* Test Item Value Reference Range Comments AMMONIA (test code=AMM) 16 umol/L 11-32 PROTHROMBIN [id number] 01:53:00* Test Item Value Reference Range Comments PROTHROMBIN TIME PATIENT (test code=PTP) 17.0 seconds 9.0-14.0 INTERNATIONAL NORMAL RATIO (test code=INR) 1.4 0.8-1.2 The therapeutic range for oral anticoagulant therapy formost indications is an international normalized ratio (INR)of between 2.0 and 3.0. The recommended therapeutic INRrange for various clinical situations is listed below: Clinical Situation INR range Pulmonary e mbolism treatment (2.0-3.0)Venous thrombosis treatmentVenous thrombosis prophylaxis (high risk surgery)Prevention of systemic embolism from: Acute myocardial infarction Valvular heart disease Atrial fibrillation Mechanical prosthetic heart valves (2.5-3.5) IS PATIENT ON ANTICOAGULANTS? NTHROMBOPLASTIN TIME [id number] 01:53:00* Test Item Value Reference Range Comments THROMBOPLASTIN TIME PARTIAL (test code=PTT) 45.0 seconds 25.0-36.5 IS PATIENT ON ANTICOAGULANTS? NCBC W/MANUAL [id number] 01:53:00* Test Item Value Reference Range Comments WHITE BLOOD CELL (test code=WBC) 11.7 K/mm3 4.5-12.5 RED BLOOD CELL (test code=RBC) 3.73 mill/mm3 3.7-5.2 HEMOGLOBIN (test code=HGB) 9.9 gram/dL 11.5-15.5 HEMATOCRIT (test code=HCT) 32.4 % 36.0-46.0 MEAN CELL VOLUME (test code=MCV) 86.9 fL 80-98 MEAN CELL HGB (test code=MCH) 26.5 picogram 27.0-33.0 MEAN CELL HGB CONCETRATION (test code=MCHC) 30.6 gram/dL 33.0-36.0 RED CELL DISTRIBUTION WIDTH (test code=RDW) 17.3 % 11.6-16.2 RED CELL DISTRIBUTION WIDTH SD (test code=RDW-SD) 52.8 fL 37.0-51.0 PLATELET COUNT (test code=PLT) 63 K/mm3 150-450 MEAN PLATELET VOLUME (test code=MPV) TEST NOT PERFORMED fL 6.7-11.0 IMMATURE GRANULOCYTE % (test code=IG%) 0.4 % 0.0-5.0 NUCLEATED RBC % (test code=NRBC%) 0.0 % 0-0 NEUTROPHIL # (test code=NT#) 10.13 K/mm3 1.8-7.7 IMMATURE GRANULOCYTE # (test code=IG#) 0.05 x10 3/uL 0-0.03 LYMPHOCYTE # (test code=LY#) 1.05 K/mm3 1.0-5.0 MONOCYTE # (test code=MO#) 0.40 K/mm3 0-0.8 EOSINOPHIL # (test code=EO#) 0.01 K/mm3 0.0-0.5 BASOPHIL # (test code=BA#) 0.01 K/mm3 0.0-0.2 NUCLEATED RBC # (test code=NRBC#) 0.00 K/mm3 0.0-0.1 MANUAL DIFF REQUIRED (test code=MDIFF) YES STAIN ACCEPTABILITY (test code=STN ACCEPTABLE) STAIN ACCEPTABLE TOTAL CELLS COUNTED (test code=TCC) 115 #CELLS SEGMENTED NEUTROPHILS (test code=SEG) 86.1 % 39-69 BAND NEUTROPHIL (test code=BAND) 6.1 % 0-10 LYMPHOCYTE (test code=LYMPH) 5.2 % 25-55 REACTIVE LYMPH (test code=RELYMPH) 0 % MONOCYTE (test code=MON) 1.7 % 0-10 EOSINOPHIL (test code=EOS) 0 % 0.0-5.0 BASOPHIL (test code=BASO) 0.9 % 0-1.0 METAMYELOCYTE (test code=META) 0 % 0-0 MYELOCYTE (test code=MYELO) 0 % 0.0-0.0 PROMYELOCYTE (test code=PROM) 0 % 0-0 POIKILOCYTOSIS (test code=POIK) 1+ ANISOCYTOSIS (test code=ANISO) 2+ MACROCYTOSIS (test code=MACR) 2+ PLATELET ESTIMATE (test code=PLTEST) DECREASED PLATELET MORPHOLOGY (test code=PLTMORPH) NORMAL IMMATURE FORMS (test code=IMMAT) 0 % PROCALCITONIN (PCT)2018-10-24 01:08:00* Test Item Value Reference Range Comments PROCALCITONIN (PCT) (test code=PROCAL) 37.51 ng/ml Results called to [id number] by [email or web address] 10/24/18 0108Critical results verified and read back by Nurse? YConcentration Interpretation (ng/mL) <0.51 Sepsis is not likely. Local bacterial infection is possible. (LOW RISK for progression to Sepsis) 0.51 - 2.00 Sepsis is possible, but other conditions are known to elevate PCT as well. (MODERATE RISK for progression to Sepsis) > 2.00 Sepsis is likely, unless other causes are known. (HIGH RISK for progression to Severe Sepsis or Septic Shock) 10.00 High likelihood of Severe Sepsis or Septic or higher Shock. *Increased PCT levels may not always be related to systemic bacterial infection.*Low PCT levels do not automatically exclude the presence of bacterial infection.*All results should be interpreted taking into account the patients history. BASIC METABOLIC [id number] 01:05:00* Test Item Value Reference Range Comments SODIUM (test code=NA) 138 mmol/L 136-145 RESULT VERIFIED BY REPEAT ANALYSIS POTASSIUM (test code=K) 7.2 mmol/L 3.5-5.1 Results called to [id number] by VThe Hudson Consulting GroupLAB.[email or web address] 10/24/18 0105Critical results verified and read back by Nurse? Y CHLORIDE (test code=CL) 104.0 mmol/L 98-107 CARBON DIOXIDE (test code=CO2) 26.0 mmol/L 21-32 ANION GAP (test code=GAP) 15.2 10-20 GLUCOSE (test code=GLU) 54 mg/dL 74-106 BLOOD UREA NITROGEN (test code=BUN) 79 mg/dL 7-18 GLOMERULAR FILTRATION RATE (test code=GFR) 14 mL/min >=60 Estimated GFR by using Modified MDRD formula.Chronic kidney disease is defined as either kidney damageor GFR <60 mL/min/1.73 m2 for >3 months. CREATININE (test code=CREAT) 3.40 mg/dL 0.55-1.02 Note change in reference range due to change in reagent. BUN/CREATININE RATIO (test code=BUN/CREA) 23.2 10-20 CALCIUM (test code=CA) 9.2 mg/dL 8.5-10.1 HEPATIC FUNCTION [id number] 01:05:00* Test Item Value Reference Range Comments TOTAL PROTEIN (test code=PROT) 5.7 gram/dL 6.4-8.2 ALBUMIN (test code=ALB) 1.1 g/dL 3.4-5.0 GLOBULIN (test code=GLOB) 4.6 gram/dL 2.7-4.2 ALBUMIN/GLOBULIN RATIO (test code=A/G) 0.2 0.75-1.50 BILIRUBIN TOTAL (test code=BILT) 2.50 mg/dL 0.0-1.0 BILIRUBIN DIRECT (test code=BILD) 2.11 mg/dL 0.0-0.20 SGOT/AST (test code=AST) 58 IUnit/L 15-37 SGPT/ALT (test code=ALT) 45 IUnit/L 12-78 ALKALINE PHOSPHATASE TOTAL (test code=ALKP) 372 IUnit/L 45-117 Note change in reference range due to change in reagent. [id number] 01:05:00* Test Item Value Reference Range Comments LIPASE (test code=LIP) 121 U/L 73.0-393.0 [id number] 01:05:00* Test Item Value Reference Range Comments TROPONIN-I (test code=TROPI) <0.015 ng/mL 0-0.045 LACTIC [id number] 01:05:00* Test Item Value Reference Range Comments LACTIC ACID (test code=LACT) 2.2 mmol/L 0.4-1.9 Results called to [id number] by [email or web address] 10/24/18 0105Critical results verified and read back by Nurse? Y - XR CHEST 1 [id number] 01:02:00 FAX: Jessica Kumar MD [phone] [place]: St: REG Name: SIOBHAN ROBERTS [facility] : [birth year] Age/S: 53/F [address] Unit #: [id number] Loc: [place] [address] Phys: Jessica Kumar MD Acct: [id number] Dis Date: Status: REG ER PHONE #: [phone] Exam Date: 10/24/201851 FAX #: [phone] Reason: CODE SEPSIS EXAMS: CPT CODE: [id number] XR CHEST 1 V [id number] - XR CHEST 1 V, 10/24/2018 12:05 AM Reason For Examination: CODE SEPSIS Comparison: October 09, 2018 Location: R16 Findings L UNGS: Mild vascular congestion/edema. Exam findings limited by low lung volumes. There is retrocardiac density which appears relatively well- defined measuring approximately 3.7 cm nonspecific but should be further evaluated on outpatient/nonemergent CT of the chest to exclude the presenc e of an underlying lesion. PLEURA: No pleural effusions CARDIOMEDIASTINAL SILHOUETTE Unremarkable IMPRESSION: Mild vascular congestion/edema. Exam findings limited by low lung volumes. There is retrocardiac density which appears rela tively well-defined measuring approximately 3.7 cm nonspecific but shoul d be further evaluated on outpatient/nonemergent CT of the chest to excl ude the presence of an underlying lesion. at 0102 Reported and signed by: Angie Eller M.D. CC: Jessica Kumar MD Technologist: Kami Lopes Trnscrd Date/Time/By: 10/24/2018 (010) : By: [email or web address] Orig Print D/ T: S: 10/24/2018 (010) PAGE 1 Si gned Report CBC W/MANUAL [id number] 01:00:00* Test Item Value Reference Range Comments WHITE BLOOD CELL (test code=WBC) 11.7 K/mm3 4.5-12.5 RED BLOOD CELL (test code=RBC) 3.73 mill/mm3 3.7-5.2 HEMOGLOBIN (test code=HGB) 9.9 gram/dL 11.5-15.5 HEMATOCRIT (test code=HCT) 32.4 % 36.0-46.0 MEAN CELL VOLUME (test code=MCV) 86.9 fL 80-98 MEAN CELL HGB (test code=MCH) 26.5 picogram 27.0-33.0 MEAN CELL HGB CONCETRATION (test code=MCHC) 30.6 gram/dL 33.0-36.0 RED CELL DISTRIBUTION WIDTH (test code=RDW) 17.3 % 11.6-16.2 RED CELL DISTRIBUTION WIDTH SD (test code=RDW-SD) 52.8 fL 37.0-51.0 PLATELET COUNT (test code=PLT) 63 K/mm3 150-450 MEAN PLATELET VOLUME (test code=MPV) TEST NOT PERFORMED fL 6.7-11.0 IMMATURE GRANULOCYTE % (test code=IG%) 0.4 % 0.0-5.0 NUCLEATED RBC % (test code=NRBC%) 0.0 % 0-0 NEUTROPHIL # (test code=NT#) 10.13 K/mm3 1.8-7.7 IMMATURE GRANULOCYTE # (test code=IG#) 0.05 x10 3/uL 0-0.03 LYMPHOCYTE # (test code=LY#) 1.05 K/mm3 1.0-5.0 MONOCYTE # (test code=MO#) 0.40 K/mm3 0-0.8 EOSINOPHIL # (test code=EO#) 0.01 K/mm3 0.0-0.5 BASOPHIL # (test code=BA#) 0.01 K/mm3 0.0-0.2 NUCLEATED RBC # (test code=NRBC#) 0.00 K/mm3 0.0-0.1 MANUAL DIFF REQUIRED (test code=MDIFF) YES STAIN ACCEPTABILITY (test code=STN ACCEPTABLE) TOTAL CELLS COUNTED (test code=TCC) #CELLS SEGMENTED NEUTROPHILS (test code=SEG) % 39-69 LYMPHOCYTE (test code=LYMPH) % 25-55 MONOCYTE (test code=MON) % 0-10 EOSINOPHIL (test code=EOS) % 0.0-5.0 CABOT RINGS (test code=CAB) MORPHOLOGY COMMENT (test code=MOC) PLATELET ESTIMATE (test code=PLTEST) PLATELET MORPHOLOGY (test code=PLTMORPH) CBC W/MANUAL [id number] 01:00:00* Test Item Value Reference Range Comments WHITE BLOOD CELL (test code=WBC) 11.7 K/mm3 4.5-12.5 RED BLOOD CELL (test code=RBC) 3.73 mill/mm3 3.7-5.2 HEMOGLOBIN (test code=HGB) 9.9 gram/dL 11.5-15.5 HEMATOCRIT (test code=HCT) 32.4 % 36.0-46.0 MEAN CELL VOLUME (test code=MCV) 86.9 fL 80-98 MEAN CELL HGB (test code=MCH) 26.5 picogram 27.0-33.0 MEAN CELL HGB CONCETRATION (test code=MCHC) 30.6 gram/dL 33.0-36.0 RED CELL DISTRIBUTION WIDTH (test code=RDW) 17.3 % 11.6-16.2 RED CELL DISTRIBUTION WIDTH SD (test code=RDW-SD) 52.8 fL 37.0-51.0 PLATELET COUNT (test code=PLT) 63 K/mm3 150-450 MEAN PLATELET VOLUME (test code=MPV) TEST NOT PERFORMED fL 6.7-11.0 IMMATURE GRANULOCYTE % (test code=IG%) 0.4 % 0.0-5.0 NUCLEATED RBC % (test code=NRBC%) 0.0 % 0-0 NEUTROPHIL # (test code=NT#) 10.13 K/mm3 1.8-7.7 IMMATURE GRANULOCYTE # (test code=IG#) 0.05 x10 3/uL 0-0.03 LYMPHOCYTE # (test code=LY#) 1.05 K/mm3 1.0-5.0 MONOCYTE # (test code=MO#) 0.40 K/mm3 0-0.8 EOSINOPHIL # (test code=EO#) 0.01 K/mm3 0.0-0.5 BASOPHIL # (test code=BA#) 0.01 K/mm3 0.0-0.2 NUCLEATED RBC # (test code=NRBC#) 0.00 K/mm3 0.0-0.1 MANUAL DIFF REQUIRED (test code=MDIFF) YES STAIN ACCEPTABILITY (test code=STN ACCEPTABLE) TOTAL CELLS COUNTED (test code=TCC) #CELLS SEGMENTED NEUTROPHILS (test code=SEG) % 39-69 LYMPHOCYTE (test code=LYMPH) % 25-55 MONOCYTE (test code=MON) % 0-10 EOSINOPHIL (test code=EOS) % 0.0-5.0 CABOT RINGS (test code=CAB) MORPHOLOGY COMMENT (test code=MOC) PLATELET ESTIMATE (test code=PLTEST) PLATELET MORPHOLOGY (test code=PLTMORPH) CBC W/MANUAL [id number] 01:00:00* Test Item Value Reference Range Comments WHITE BLOOD CELL (test code=WBC) 11.7 K/mm3 4.5-12.5 RED BLOOD CELL (test code=RBC) 3.73 mill/mm3 3.7-5.2 HEMOGLOBIN (test code=HGB) 9.9 gram/dL 11.5-15.5 HEMATOCRIT (test code=HCT) 32.4 % 36.0-46.0 MEAN CELL VOLUME (test code=MCV) 86.9 fL 80-98 MEAN CELL HGB (test code=MCH) 26.5 picogram 27.0-33.0 MEAN CELL HGB CONCETRATION (test code=MCHC) 30.6 gram/dL 33.0-36.0 RED CELL DISTRIBUTION WIDTH (test code=RDW) 17.3 % 11.6-16.2 RED CELL DISTRIBUTION WIDTH SD (test code=RDW-SD) 52.8 fL 37.0-51.0 PLATELET COUNT (test code=PLT) 63 K/mm3 150-450 MEAN PLATELET VOLUME (test code=MPV) TEST NOT PERFORMED fL 6.7-11.0 IMMATURE GRANULOCYTE % (test code=IG%) 0.4 % 0.0-5.0 NUCLEATED RBC % (test code=NRBC%) 0.0 % 0-0 NEUTROPHIL # (test code=NT#) 10.13 K/mm3 1.8-7.7 IMMATURE GRANULOCYTE # (test code=IG#) 0.05 x10 3/uL 0-0.03 LYMPHOCYTE # (test code=LY#) 1.05 K/mm3 1.0-5.0 MONOCYTE # (test code=MO#) 0.40 K/mm3 0-0.8 EOSINOPHIL # (test code=EO#) 0.01 K/mm3 0.0-0.5 BASOPHIL # (test code=BA#) 0.01 K/mm3 0.0-0.2 NUCLEATED RBC # (test code=NRBC#) 0.00 K/mm3 0.0-0.1 MANUAL DIFF REQUIRED (test code=MDIFF) YES STAIN ACCEPTABILITY (test code=STN ACCEPTABLE) TOTAL CELLS COUNTED (test code=TCC) #CELLS SEGMENTED NEUTROPHILS (test code=SEG) % 39-69 LYMPHOCYTE (test code=LYMPH) % 25-55 MONOCYTE (test code=MON) % 0-10 EOSINOPHIL (test code=EOS) % 0.0-5.0 MORPHOLOGY COMMENT (test code=MOC) PLATELET ESTIMATE (test code=PLTEST) PLATELET MORPHOLOGY (test code=PLTMORPH) CBC W/MANUAL [id number] 01:00:00* Test Item Value Reference Range Comments WHITE BLOOD CELL (test code=WBC) 11.7 K/mm3 4.5-12.5 RED BLOOD CELL (test code=RBC) 3.73 mill/mm3 3.7-5.2 HEMOGLOBIN (test code=HGB) 9.9 gram/dL 11.5-15.5 HEMATOCRIT (test code=HCT) 32.4 % 36.0-46.0 MEAN CELL VOLUME (test code=MCV) 86.9 fL 80-98 MEAN CELL HGB (test code=MCH) 26.5 picogram 27.0-33.0 MEAN CELL HGB CONCETRATION (test code=MCHC) 30.6 gram/dL 33.0-36.0 RED CELL DISTRIBUTION WIDTH (test code=RDW) 17.3 % 11.6-16.2 RED CELL DISTRIBUTION WIDTH SD (test code=RDW-SD) 52.8 fL 37.0-51.0 PLATELET COUNT (test code=PLT) 63 K/mm3 150-450 MEAN PLATELET VOLUME (test code=MPV) TEST NOT PERFORMED fL 6.7-11.0 IMMATURE GRANULOCYTE % (test code=IG%) 0.4 % 0.0-5.0 NUCLEATED RBC % (test code=NRBC%) 0.0 % 0-0 NEUTROPHIL # (test code=NT#) 10.13 K/mm3 1.8-7.7 IMMATURE GRANULOCYTE # (test code=IG#) 0.05 x10 3/uL 0-0.03 LYMPHOCYTE # (test code=LY#) 1.05 K/mm3 1.0-5.0 MONOCYTE # (test code=MO#) 0.40 K/mm3 0-0.8 EOSINOPHIL # (test code=EO#) 0.01 K/mm3 0.0-0.5 BASOPHIL # (test code=BA#) 0.01 K/mm3 0.0-0.2 NUCLEATED RBC # (test code=NRBC#) 0.00 K/mm3 0.0-0.1 MANUAL DIFF REQUIRED (test code=MDIFF) YES STAIN ACCEPTABILITY (test code=STN ACCEPTABLE) TOTAL CELLS COUNTED (test code=TCC) #CELLS SEGMENTED NEUTROPHILS (test code=SEG) % 39-69 LYMPHOCYTE (test code=LYMPH) % 25-55 MONOCYTE (test code=MON) % 0-10 MORPHOLOGY COMMENT (test code=MOC) PLATELET ESTIMATE (test code=PLTEST) PLATELET MORPHOLOGY (test code=PLTMORPH) CBC W/MANUAL [id number] 01:00:00* Test Item Value Reference Range Comments WHITE BLOOD CELL (test code=WBC) 11.7 K/mm3 4.5-12.5 RED BLOOD CELL (test code=RBC) 3.73 mill/mm3 3.7-5.2 HEMOGLOBIN (test code=HGB) 9.9 gram/dL 11.5-15.5 HEMATOCRIT (test code=HCT) 32.4 % 36.0-46.0 MEAN CELL VOLUME (test code=MCV) 86.9 fL 80-98 MEAN CELL HGB (test code=MCH) 26.5 picogram 27.0-33.0 MEAN CELL HGB CONCETRATION (test code=MCHC) 30.6 gram/dL 33.0-36.0 RED CELL DISTRIBUTION WIDTH (test code=RDW) 17.3 % 11.6-16.2 RED CELL DISTRIBUTION WIDTH SD (test code=RDW-SD) 52.8 fL 37.0-51.0 PLATELET COUNT (test code=PLT) 63 K/mm3 150-450 MEAN PLATELET VOLUME (test code=MPV) TEST NOT PERFORMED fL 6.7-11.0 IMMATURE GRANULOCYTE % (test code=IG%) 0.4 % 0.0-5.0 NUCLEATED RBC % (test code=NRBC%) 0.0 % 0-0 NEUTROPHIL # (test code=NT#) 10.13 K/mm3 1.8-7.7 IMMATURE GRANULOCYTE # (test code=IG#) 0.05 x10 3/uL 0-0.03 LYMPHOCYTE # (test code=LY#) 1.05 K/mm3 1.0-5.0 MONOCYTE # (test code=MO#) 0.40 K/mm3 0-0.8 EOSINOPHIL # (test code=EO#) 0.01 K/mm3 0.0-0.5 BASOPHIL # (test code=BA#) 0.01 K/mm3 0.0-0.2 NUCLEATED RBC # (test code=NRBC#) 0.00 K/mm3 0.0-0.1 MANUAL DIFF REQUIRED (test code=MDIFF) YES STAIN ACCEPTABILITY (test code=STN ACCEPTABLE) TOTAL CELLS COUNTED (test code=TCC) #CELLS SEGMENTED NEUTROPHILS (test code=SEG) % 39-69 LYMPHOCYTE (test code=LYMPH) % 25-55 MONOCYTE (test code=MON) % 0-10 EOSINOPHIL (test code=EOS) % 0.0-5.0 CABOT RINGS (test code=CAB) MORPHOLOGY COMMENT (test code=MOC) PLATELET ESTIMATE (test code=PLTEST) PLATELET MORPHOLOGY (test code=PLTMORPH) BASIC METABOLIC [id number] 09:38:00* Test Item Value Reference Range Comments SODIUM (test code=NA) 142 mmol/L 136-145 POTASSIUM (test code=K) 3.2 mmol/L 3.5-5.1 CHLORIDE (test code=CL) 106.0 mmol/L 98-107 CARBON DIOXIDE (test code=CO2) 27.0 mmol/L 21-32 ANION GAP (test code=GAP) 12.2 10-20 GLUCOSE (test code=GLU) 101 mg/dL 74-106 BLOOD UREA NITROGEN (test code=BUN) 53 mg/dL 7-18 GLOMERULAR FILTRATION RATE (test code=GFR) 36 mL/min >=60 Estimated GFR by using Modified MDRD formula.Chronic kidney disease is defined as either kidney damageor GFR <60 mL/min/1.73 m2 for >3 months. CREATININE (test code=CREAT) 1.50 mg/dL 0.55-1.02 Note change in reference range due to change in reagent. BUN/CREATININE RATIO (test code=BUN/CREA) 35.3 10-20 CALCIUM (test code=CA) 8.8 mg/dL 8.5-10.1 BASIC METABOLIC [id number] 09:30:00* Test Item Value Reference Range Comments SODIUM (test code=NA) 142 mmol/L 136-145 POTASSIUM (test code=K) 3.2 mmol/L 3.5-5.1 CHLORIDE (test code=CL) 106.0 mmol/L 98-107 CARBON DIOXIDE (test code=CO2) mmol/L 21-32 ANION GAP (test code=GAP) 10-20 GLUCOSE (test code=GLU) mg/dL 74-106 BLOOD UREA NITROGEN (test code=BUN) mg/dL 7-18 GLOMERULAR FILTRATION RATE (test code=GFR) mL/min >=60 CREATININE (test code=CREAT) mg/dL 0.55-1.02 BUN/CREATININE RATIO (test code=BUN/CREA) 10-20 CALCIUM (test code=CA) mg/dL 8.5-10.1 BASIC METABOLIC [id number] 00:05:00* Test Item Value Reference Range Comments SODIUM (test code=NA) 144 mmol/L 136-145 POTASSIUM (test code=K) 3.5 mmol/L 3.5-5.1 CHLORIDE (test code=CL) 108.0 mmol/L 98-107 CARBON DIOXIDE (test code=CO2) 28.0 mmol/L 21-32 ANION GAP (test code=GAP) 11.5 10-20 GLUCOSE (test code=GLU) 103 mg/dL 74-106 BLOOD UREA NITROGEN (test code=BUN) 55 mg/dL 7-18 GLOMERULAR FILTRATION RATE (test code=GFR) 34 mL/min >=60 Estimated GFR by using Modified MDRD formula.Chronic kidney disease is defined as either kidney damageor GFR <60 mL/min/1.73 m2 for >3 months. CREATININE (test code=CREAT) 1.60 mg/dL 0.55-1.02 Note change in reference range due to change in reagent. BUN/CREATININE RATIO (test code=BUN/CREA) 34.4 10-20 CALCIUM (test code=CA) 8.8 mg/dL 8.5-10.1 PATIENT IS WITH THERAPY AT THE MOMENT, ASKED TO COME BACKLATER SABINE Garcia OF [facility]. 10/13/18 1052BASIC METABOLIC [id number] 00:02:00* Test Item Value Reference Range Comments SODIUM (test code=NA) 144 mmol/L 136-145 POTASSIUM (test code=K) 3.5 mmol/L 3.5-5.1 CHLORIDE (test code=CL) 108.0 mmol/L 98-107 CARBON DIOXIDE (test code=CO2) mmol/L 21-32 ANION GAP (test code=GAP) 10-20 GLUCOSE (test code=GLU) mg/dL 74-106 BLOOD UREA NITROGEN (test code=BUN) mg/dL 7-18 GLOMERULAR FILTRATION RATE (test code=GFR) mL/min >=60 CREATININE (test code=CREAT) mg/dL 0.55-1.02 BUN/CREATININE RATIO (test code=BUN/CREA) 10-20 CALCIUM (test code=CA) 8.8 mg/dL 8.5-10.1 PATIENT IS WITH THERAPY AT THE MOMENT, ASKED TO COME BACKLATER SABINE Garcia OF [facility].EP 10/13/18 1052BASIC METABOLIC [id number] 09:35:00* Test Item Value Reference Range Comments SODIUM (test code=NA) 142 mmol/L 136-145 POTASSIUM (test code=K) 3.7 mmol/L 3.5-5.1 CHLORIDE (test code=CL) 108.0 mmol/L 98-107 CARBON DIOXIDE (test code=CO2) 24.0 mmol/L 21-32 ANION GAP (test code=GAP) 13.7 10-20 GLUCOSE (test code=GLU) 100 mg/dL 74-106 BLOOD UREA NITROGEN (test code=BUN) 61 mg/dL 7-18 GLOMERULAR FILTRATION RATE (test code=GFR) 29 mL/min >=60 Estimated GFR by using Modified MDRD formula.Chronic kidney disease is defined as either kidney damageor GFR <60 mL/min/1.73 m2 for >3 months. CREATININE (test code=CREAT) 1.80 mg/dL 0.55-1.02 Note change in reference range due to change in reagent. BUN/CREATININE RATIO (test code=BUN/CREA) 33.9 10-20 CALCIUM (test code=CA) 8.7 mg/dL 8.5-10.1 BASIC METABOLIC [id number] 09:29:00* Test Item Value Reference Range Comments SODIUM (test code=NA) 142 mmol/L 136-145 POTASSIUM (test code=K) 3.7 mmol/L 3.5-5.1 CHLORIDE (test code=CL) 108.0 mmol/L 98-107 CARBON DIOXIDE (test code=CO2) mmol/L 21-32 ANION GAP (test code=GAP) 10-20 GLUCOSE (test code=GLU) mg/dL 74-106 BLOOD UREA NITROGEN (test code=BUN) mg/dL 7-18 GLOMERULAR FILTRATION RATE (test code=GFR) mL/min >=60 CREATININE (test code=CREAT) mg/dL 0.55-1.02 BUN/CREATININE RATIO (test code=BUN/CREA) 10-20 CALCIUM (test code=CA) 8.7 mg/dL 8.5-10.1 CBC W/MANUAL [id number] 09:12:00* Test Item Value Reference Range Comments WHITE BLOOD CELL (test code=WBC) 4.6 K/mm3 4.5-12.5 RED BLOOD CELL (test code=RBC) 3.53 mill/mm3 3.7-5.2 HEMOGLOBIN (test code=HGB) 9.4 gram/dL 11.5-15.5 HEMATOCRIT (test code=HCT) 30.7 % 36.0-46.0 MEAN CELL VOLUME (test code=MCV) 87.0 fL 80-98 MEAN CELL HGB (test code=MCH) 26.6 picogram 27.0-33.0 MEAN CELL HGB CONCETRATION (test code=MCHC) 30.6 gram/dL 33.0-36.0 RED CELL DISTRIBUTION WIDTH (test code=RDW) 18.3 % 11.6-16.2 RED CELL DISTRIBUTION WIDTH SD (test code=RDW-SD) 56.4 fL 37.0-51.0 PLATELET COUNT (test code=PLT) 52 K/mm3 150-450 MEAN PLATELET VOLUME (test code=MPV) 12.9 fL 6.7-11.0 IMMATURE GRANULOCYTE % (test code=IG%) 0.6 % 0.0-5.0 NUCLEATED RBC % (test code=NRBC%) 0.0 % 0-0 NEUTROPHIL # (test code=NT#) 3.56 K/mm3 1.8-7.7 IMMATURE GRANULOCYTE # (test code=IG#) 0.03 x10 3/uL 0-0.03 LYMPHOCYTE # (test code=LY#) 0.70 K/mm3 1.0-5.0 MONOCYTE # (test code=MO#) 0.34 K/mm3 0-0.8 EOSINOPHIL # (test code=EO#) 0.01 K/mm3 0.0-0.5 BASOPHIL # (test code=BA#) 0.00 K/mm3 0.0-0.2 NUCLEATED RBC # (test code=NRBC#) 0.00 K/mm3 0.0-0.1 MANUAL DIFF REQUIRED (test code=MDIFF) YES STAIN ACCEPTABILITY (test code=STN ACCEPTABLE) STAIN ACCEPTABLE TOTAL CELLS COUNTED (test code=TCC) 114 #CELLS SEGMENTED NEUTROPHILS (test code=SEG) 94.7 % 39-69 BAND NEUTROPHIL (test code=BAND) 0 % 0-10 LYMPHOCYTE (test code=LYMPH) 2.6 % 25-55 REACTIVE LYMPH (test code=RELYMPH) 0 % MONOCYTE (test code=MON) 0.9 % 0-10 EOSINOPHIL (test code=EOS) 0.9 % 0.0-5.0 BASOPHIL (test code=BASO) 0 % 0-1.0 METAMYELOCYTE (test code=META) 0 % 0-0 MYELOCYTE (test code=MYELO) 0.9 % 0.0-0.0 PROMYELOCYTE (test code=PROM) 0 % 0-0 POIKILOCYTOSIS (test code=POIK) 1+ ANISOCYTOSIS (test code=ANISO) 1+ MACROCYTOSIS (test code=MACR) 1+ JAYLA CELLS (test code=JAYLA) 1+ NONE PLATELET ESTIMATE (test code=PLTEST) DECREASED PLATELET MORPHOLOGY (test code=PLTMORPH) NORMAL IMMATURE FORMS (test code=IMMAT) 0 % CBC W/MANUAL [id number] 08:28:00* Test Item Value Reference Range Comments WHITE BLOOD CELL (test code=WBC) 4.6 K/mm3 4.5-12.5 RED BLOOD CELL (test code=RBC) 3.53 mill/mm3 3.7-5.2 HEMOGLOBIN (test code=HGB) 9.4 gram/dL 11.5-15.5 HEMATOCRIT (test code=HCT) 30.7 % 36.0-46.0 MEAN CELL VOLUME (test code=MCV) 87.0 fL 80-98 MEAN CELL HGB (test code=MCH) 26.6 picogram 27.0-33.0 MEAN CELL HGB CONCETRATION (test code=MCHC) 30.6 gram/dL 33.0-36.0 RED CELL DISTRIBUTION WIDTH (test code=RDW) 18.3 % 11.6-16.2 RED CELL DISTRIBUTION WIDTH SD (test code=RDW-SD) 56.4 fL 37.0-51.0 PLATELET COUNT (test code=PLT) 52 K/mm3 150-450 MEAN PLATELET VOLUME (test code=MPV) 12.9 fL 6.7-11.0 IMMATURE GRANULOCYTE % (test code=IG%) 0.6 % 0.0-5.0 NUCLEATED RBC % (test code=NRBC%) 0.0 % 0-0 NEUTROPHIL # (test code=NT#) 3.56 K/mm3 1.8-7.7 IMMATURE GRANULOCYTE # (test code=IG#) 0.03 x10 3/uL 0-0.03 LYMPHOCYTE # (test code=LY#) 0.70 K/mm3 1.0-5.0 MONOCYTE # (test code=MO#) 0.34 K/mm3 0-0.8 EOSINOPHIL # (test code=EO#) 0.01 K/mm3 0.0-0.5 BASOPHIL # (test code=BA#) 0.00 K/mm3 0.0-0.2 NUCLEATED RBC # (test code=NRBC#) 0.00 K/mm3 0.0-0.1 MANUAL DIFF REQUIRED (test code=MDIFF) YES STAIN ACCEPTABILITY (test code=STN ACCEPTABLE) TOTAL CELLS COUNTED (test code=TCC) #CELLS SEGMENTED NEUTROPHILS (test code=SEG) % 39-69 LYMPHOCYTE (test code=LYMPH) % 25-55 MONOCYTE (test code=MON) % 0-10 MORPHOLOGY COMMENT (test code=MOC) PLATELET ESTIMATE (test code=PLTEST) PLATELET MORPHOLOGY (test code=PLTMORPH) CBC W/MANUAL [id number] 08:26:00* Test Item Value Reference Range Comments WHITE BLOOD CELL (test code=WBC) 4.6 K/mm3 4.5-12.5 RED BLOOD CELL (test code=RBC) 3.53 mill/mm3 3.7-5.2 HEMOGLOBIN (test code=HGB) 9.4 gram/dL 11.5-15.5 HEMATOCRIT (test code=HCT) 30.7 % 36.0-46.0 MEAN CELL VOLUME (test code=MCV) 87.0 fL 80-98 MEAN CELL HGB (test code=MCH) 26.6 picogram 27.0-33.0 MEAN CELL HGB CONCETRATION (test code=MCHC) 30.6 gram/dL 33.0-36.0 RED CELL DISTRIBUTION WIDTH (test code=RDW) 18.3 % 11.6-16.2 RED CELL DISTRIBUTION WIDTH SD (test code=RDW-SD) 56.4 fL 37.0-51.0 PLATELET COUNT (test code=PLT) 52 K/mm3 150-450 MEAN PLATELET VOLUME (test code=MPV) 12.9 fL 6.7-11.0 IMMATURE GRANULOCYTE % (test code=IG%) 0.6 % 0.0-5.0 NUCLEATED RBC % (test code=NRBC%) 0.0 % 0-0 NEUTROPHIL # (test code=NT#) 3.56 K/mm3 1.8-7.7 IMMATURE GRANULOCYTE # (test code=IG#) 0.03 x10 3/uL 0-0.03 LYMPHOCYTE # (test code=LY#) 0.70 K/mm3 1.0-5.0 MONOCYTE # (test code=MO#) 0.34 K/mm3 0-0.8 EOSINOPHIL # (test code=EO#) 0.01 K/mm3 0.0-0.5 BASOPHIL # (test code=BA#) 0.00 K/mm3 0.0-0.2 NUCLEATED RBC # (test code=NRBC#) 0.00 K/mm3 0.0-0.1 MANUAL DIFF REQUIRED (test code=MDIFF) YES STAIN ACCEPTABILITY (test code=STN ACCEPTABLE) TOTAL CELLS COUNTED (test code=TCC) #CELLS SEGMENTED NEUTROPHILS (test code=SEG) % 39-69 LYMPHOCYTE (test code=LYMPH) % 25-55 MONOCYTE (test code=MON) % 0-10 EOSINOPHIL (test code=EOS) % 0.0-5.0 CABOT RINGS (test code=CAB) MORPHOLOGY COMMENT (test code=MOC) PLATELET ESTIMATE (test code=PLTEST) PLATELET MORPHOLOGY (test code=PLTMORPH) CBC W/MANUAL [id number] 08:26:00* Test Item Value Reference Range Comments WHITE BLOOD CELL (test code=WBC) 4.6 K/mm3 4.5-12.5 RED BLOOD CELL (test code=RBC) 3.53 mill/mm3 3.7-5.2 HEMOGLOBIN (test code=HGB) 9.4 gram/dL 11.5-15.5 HEMATOCRIT (test code=HCT) 30.7 % 36.0-46.0 MEAN CELL VOLUME (test code=MCV) 87.0 fL 80-98 MEAN CELL HGB (test code=MCH) 26.6 picogram 27.0-33.0 MEAN CELL HGB CONCETRATION (test code=MCHC) 30.6 gram/dL 33.0-36.0 RED CELL DISTRIBUTION WIDTH (test code=RDW) 18.3 % 11.6-16.2 RED CELL DISTRIBUTION WIDTH SD (test code=RDW-SD) 56.4 fL 37.0-51.0 PLATELET COUNT (test code=PLT) 52 K/mm3 150-450 MEAN PLATELET VOLUME (test code=MPV) 12.9 fL 6.7-11.0 IMMATURE GRANULOCYTE % (test code=IG%) 0.6 % 0.0-5.0 NUCLEATED RBC % (test code=NRBC%) 0.0 % 0-0 NEUTROPHIL # (test code=NT#) 3.56 K/mm3 1.8-7.7 IMMATURE GRANULOCYTE # (test code=IG#) 0.03 x10 3/uL 0-0.03 LYMPHOCYTE # (test code=LY#) 0.70 K/mm3 1.0-5.0 MONOCYTE # (test code=MO#) 0.34 K/mm3 0-0.8 EOSINOPHIL # (test code=EO#) 0.01 K/mm3 0.0-0.5 BASOPHIL # (test code=BA#) 0.00 K/mm3 0.0-0.2 NUCLEATED RBC # (test code=NRBC#) 0.00 K/mm3 0.0-0.1 MANUAL DIFF REQUIRED (test code=MDIFF) YES STAIN ACCEPTABILITY (test code=STN ACCEPTABLE) TOTAL CELLS COUNTED (test code=TCC) #CELLS SEGMENTED NEUTROPHILS (test code=SEG) % 39-69 LYMPHOCYTE (test code=LYMPH) % 25-55 MONOCYTE (test code=MON) % 0-10 EOSINOPHIL (test code=EOS) % 0.0-5.0 CABOT RINGS (test code=CAB) MORPHOLOGY COMMENT (test code=MOC) PLATELET ESTIMATE (test code=PLTEST) PLATELET MORPHOLOGY (test code=PLTMORPH) CBC W/MANUAL [id number] 08:26:00* Test Item Value Reference Range Comments WHITE BLOOD CELL (test code=WBC) 4.6 K/mm3 4.5-12.5 RED BLOOD CELL (test code=RBC) 3.53 mill/mm3 3.7-5.2 HEMOGLOBIN (test code=HGB) 9.4 gram/dL 11.5-15.5 HEMATOCRIT (test code=HCT) 30.7 % 36.0-46.0 MEAN CELL VOLUME (test code=MCV) 87.0 fL 80-98 MEAN CELL HGB (test code=MCH) 26.6 picogram 27.0-33.0 MEAN CELL HGB CONCETRATION (test code=MCHC) 30.6 gram/dL 33.0-36.0 RED CELL DISTRIBUTION WIDTH (test code=RDW) 18.3 % 11.6-16.2 RED CELL DISTRIBUTION WIDTH SD (test code=RDW-SD) 56.4 fL 37.0-51.0 PLATELET COUNT (test code=PLT) 52 K/mm3 150-450 MEAN PLATELET VOLUME (test code=MPV) 12.9 fL 6.7-11.0 IMMATURE GRANULOCYTE % (test code=IG%) 0.6 % 0.0-5.0 NUCLEATED RBC % (test code=NRBC%) 0.0 % 0-0 NEUTROPHIL # (test code=NT#) 3.56 K/mm3 1.8-7.7 IMMATURE GRANULOCYTE # (test code=IG#) 0.03 x10 3/uL 0-0.03 LYMPHOCYTE # (test code=LY#) 0.70 K/mm3 1.0-5.0 MONOCYTE # (test code=MO#) 0.34 K/mm3 0-0.8 EOSINOPHIL # (test code=EO#) 0.01 K/mm3 0.0-0.5 BASOPHIL # (test code=BA#) 0.00 K/mm3 0.0-0.2 NUCLEATED RBC # (test code=NRBC#) 0.00 K/mm3 0.0-0.1 MANUAL DIFF REQUIRED (test code=MDIFF) YES STAIN ACCEPTABILITY (test code=STN ACCEPTABLE) TOTAL CELLS COUNTED (test code=TCC) #CELLS SEGMENTED NEUTROPHILS (test code=SEG) % 39-69 LYMPHOCYTE (test code=LYMPH) % 25-55 MONOCYTE (test code=MON) % 0-10 EOSINOPHIL (test code=EOS) % 0.0-5.0 MORPHOLOGY COMMENT (test code=MOC) PLATELET ESTIMATE (test code=PLTEST) PLATELET MORPHOLOGY (test code=PLTMORPH) CBC W/MANUAL [id number] 08:26:00* Test Item Value Reference Range Comments WHITE BLOOD CELL (test code=WBC) 4.6 K/mm3 4.5-12.5 RED BLOOD CELL (test code=RBC) 3.53 mill/mm3 3.7-5.2 HEMOGLOBIN (test code=HGB) 9.4 gram/dL 11.5-15.5 HEMATOCRIT (test code=HCT) 30.7 % 36.0-46.0 MEAN CELL VOLUME (test code=MCV) 87.0 fL 80-98 MEAN CELL HGB (test code=MCH) 26.6 picogram 27.0-33.0 MEAN CELL HGB CONCETRATION (test code=MCHC) 30.6 gram/dL 33.0-36.0 RED CELL DISTRIBUTION WIDTH (test code=RDW) 18.3 % 11.6-16.2 RED CELL DISTRIBUTION WIDTH SD (test code=RDW-SD) 56.4 fL 37.0-51.0 PLATELET COUNT (test code=PLT) 52 K/mm3 150-450 MEAN PLATELET VOLUME (test code=MPV) 12.9 fL 6.7-11.0 IMMATURE GRANULOCYTE % (test code=IG%) 0.6 % 0.0-5.0 NUCLEATED RBC % (test code=NRBC%) 0.0 % 0-0 NEUTROPHIL # (test code=NT#) 3.56 K/mm3 1.8-7.7 IMMATURE GRANULOCYTE # (test code=IG#) 0.03 x10 3/uL 0-0.03 LYMPHOCYTE # (test code=LY#) 0.70 K/mm3 1.0-5.0 MONOCYTE # (test code=MO#) 0.34 K/mm3 0-0.8 EOSINOPHIL # (test code=EO#) 0.01 K/mm3 0.0-0.5 BASOPHIL # (test code=BA#) 0.00 K/mm3 0.0-0.2 NUCLEATED RBC # (test code=NRBC#) 0.00 K/mm3 0.0-0.1 MANUAL DIFF REQUIRED (test code=MDIFF) YES STAIN ACCEPTABILITY (test code=STN ACCEPTABLE) TOTAL CELLS COUNTED (test code=TCC) #CELLS SEGMENTED NEUTROPHILS (test code=SEG) % 39-69 LYMPHOCYTE (test code=LYMPH) % 25-55 MONOCYTE (test code=MON) % 0-10 EOSINOPHIL (test code=EOS) % 0.0-5.0 CABOT RINGS (test code=CAB) MORPHOLOGY COMMENT (test code=MOC) PLATELET ESTIMATE (test code=PLTEST) PLATELET MORPHOLOGY (test code=PLTMORPH) VANCOMYCIN [id number] 23:23:00* Test Item Value Reference Range Comments VANCOMYCIN TROUGH (test code=VANCT) 21.3 ug/mL 10-20 [id number] 15:11:00* Test Item Value Reference Range Comments GLUCOSE (test code=GLU) 64 mg/dL 74-106 BASIC METABOLIC [id number] 07:19:00* Test Item Value Reference Range Comments SODIUM (test code=NA) 140 mmol/L 136-145 POTASSIUM (test code=K) 4.4 mmol/L 3.5-5.1 CHLORIDE (test code=CL) 108.0 mmol/L 98-107 CARBON DIOXIDE (test code=CO2) 24.0 mmol/L 21-32 ANION GAP (test code=GAP) 12.4 10-20 GLUCOSE (test code=GLU) 65 mg/dL 74-106 BLOOD UREA NITROGEN (test code=BUN) 59 mg/dL 7-18 GLOMERULAR FILTRATION RATE (test code=GFR) 29 mL/min >=60 Estimated GFR by using Modified MDRD formula.Chronic kidney disease is defined as either kidney damageor GFR <60 mL/min/1.73 m2 for >3 months. CREATININE (test code=CREAT) 1.80 mg/dL 0.55-1.02 Note change in reference range due to change in reagent. BUN/CREATININE RATIO (test code=BUN/CREA) 32.8 20 CALCIUM (test code=CA) 9.0 mg/dL 8.5-10.1 [id number] 07:19:00* Test Item Value Reference Range Comments PHOSPHORUS (test code=PHOS) 5.1 mg/dL 2.5-4.9 [id number] 07:19:00* Test Item Value Reference Range Comments MAGNESIUM (test code=MAG) 2.1 mg/dL 1.8-2.4 CALCIUM [id number] 07:19:00* Test Item Value Reference Range Comments CALCIUM IONIZED (test code=MARIAH) 1.38 mmol/L 1.12-1.32 BASIC METABOLIC [id number] 07:11:00* Test Item Value Reference Range Comments SODIUM (test code=NA) 140 mmol/L 136-145 POTASSIUM (test code=K) 4.4 mmol/L 3.5-5.1 CHLORIDE (test code=CL) 108.0 mmol/L 98-107 CARBON DIOXIDE (test code=CO2) mmol/L 21-32 ANION GAP (test code=GAP) 10-20 GLUCOSE (test code=GLU) mg/dL 74-106 BLOOD UREA NITROGEN (test code=BUN) mg/dL 7-18 GLOMERULAR FILTRATION RATE (test code=GFR) mL/min >=60 CREATININE (test code=CREAT) mg/dL 0.55-1.02 BUN/CREATININE RATIO (test code=BUN/CREA) 10-20 CALCIUM (test code=CA) mg/dL 8.5-10.1 [id number] 07:11:00* Test Item Value Reference Range Comments PHOSPHORUS (test code=PHOS) mg/dL 2.5-4.9 [id number] 07:11:00* Test Item Value Reference Range Comments MAGNESIUM (test code=MAG) mg/dL 1.8-2.4 CALCIUM [id number] 07:11:00* Test Item Value Reference Range Comments CALCIUM IONIZED (test code=MARIAH) 1.38 mmol/L 1.12-1.32 BASIC METABOLIC [id number] 07:04:00* Test Item Value Reference Range Comments SODIUM (test code=NA) mmol/L 136-145 POTASSIUM (test code=K) mmol/L 3.5-5.1 CHLORIDE (test code=CL) mmol/L 98-107 CARBON DIOXIDE (test code=CO2) mmol/L 21-32 ANION GAP (test code=GAP) 10-20 GLUCOSE (test code=GLU) mg/dL 74-106 BLOOD UREA NITROGEN (test code=BUN) mg/dL 7-18 GLOMERULAR FILTRATION RATE (test code=GFR) mL/min >=60 CREATININE (test code=CREAT) mg/dL 0.55-1.02 BUN/CREATININE RATIO (test code=BUN/CREA) 10-20 CALCIUM (test code=CA) mg/dL 8.5-10.1 [id number] 07:04:00* Test Item Value Reference Range Comments PHOSPHORUS (test code=PHOS) mg/dL 2.5-4.9 [id number] 07:04:00* Test Item Value Reference Range Comments MAGNESIUM (test code=MAG) mg/dL 1.8-2.4 CALCIUM [id number] 07:04:00* Test Item Value Reference Range Comments CALCIUM IONIZED (test code=MARIAH) 1.38 mmol/L 1.12-1.32 CBC W/AUTO [id number] 06:55:00* Test Item Value Reference Range Comments WHITE BLOOD CELL (test code=WBC) 5.4 K/mm3 4.5-12.5 RED BLOOD CELL (test code=RBC) 3.45 mill/mm3 3.7-5.2 HEMOGLOBIN (test code=HGB) 9.1 gram/dL 11.5-15.5 RESULT VERIFIED BY REPEAT ANALYSIS HEMATOCRIT (test code=HCT) 30.0 % 36.0-46.0 MEAN CELL VOLUME (test code=MCV) 87.0 fL 80-98 MEAN CELL HGB (test code=MCH) 26.4 picogram 27.0-33.0 MEAN CELL HGB CONCETRATION (test code=MCHC) 30.3 gram/dL 33.0-36.0 RED CELL DISTRIBUTION WIDTH (test code=RDW) 18.3 % 11.6-16.2 RED CELL DISTRIBUTION WIDTH SD (test code=RDW-SD) 56.1 fL 37.0-51.0 PLATELET COUNT (test code=PLT) 62 K/mm3 150-450 RESULT VERIFIED BY REPEAT ANALYSIS MEAN PLATELET VOLUME (test code=MPV) 11.4 fL 6.7-11.0 NEUTROPHIL % (test code=NT%) 79.8 % 39.0-69.0 IMMATURE GRANULOCYTE % (test code=IG%) 0.6 % 0.0-5.0 LYMPHOCYTE % (test code=LY%) 13.1 % 25.0-55.0 MONOCYTE % (test code=MO%) 6.3 % 0.0-10.0 EOSINOPHIL % (test code=EO%) 0.0 % 0.0-5.0 BASOPHIL % (test code=BA%) 0.2 % 0.0-1.0 NUCLEATED RBC % (test code=NRBC%) 0.0 % 0-0 NEUTROPHIL # (test code=NT#) 4.33 K/mm3 1.8-7.7 IMMATURE GRANULOCYTE # (test code=IG#) 0.03 x10 3/uL 0-0.03 LYMPHOCYTE # (test code=LY#) 0.71 K/mm3 1.0-5.0 MONOCYTE # (test code=MO#) 0.34 K/mm3 0-0.8 EOSINOPHIL # (test code=EO#) 0.00 K/mm3 0.0-0.5 BASOPHIL # (test code=BA#) 0.01 K/mm3 0.0-0.2 NUCLEATED RBC # (test code=NRBC#) 0.00 K/mm3 0.0-0.1 MANUAL DIFF REQUIRED (test code=MDIFF) NO CBC W/AUTO [id number] 06:35:00* Test Item Value Reference Range Comments WHITE BLOOD CELL (test code=WBC) 11.0 K/mm3 4.5-12.5 RED BLOOD CELL (test code=RBC) 2.73 mill/mm3 3.7-5.2 HEMOGLOBIN (test code=HGB) 7.0 gram/dL 11.5-15.5 HEMATOCRIT (test code=HCT) 24.0 % 36.0-46.0 MEAN CELL VOLUME (test code=MCV) 87.9 fL 80-98 MEAN CELL HGB (test code=MCH) 25.6 picogram 27.0-33.0 MEAN CELL HGB CONCETRATION (test code=MCHC) 29.2 gram/dL 33.0-36.0 RED CELL DISTRIBUTION WIDTH (test code=RDW) 21.0 % 11.6-16.2 RED CELL DISTRIBUTION WIDTH SD (test code=RDW-SD) 66.4 fL 37.0-51.0 PLATELET COUNT (test code=PLT) 100 K/mm3 150-450 MEAN PLATELET VOLUME (test code=MPV) 12.7 fL 6.7-11.0 NEUTROPHIL % (test code=NT%) 85.3 % 39.0-69.0 IMMATURE GRANULOCYTE % (test code=IG%) 0.7 % 0.0-5.0 LYMPHOCYTE % (test code=LY%) 8.9 % 25.0-55.0 MONOCYTE % (test code=MO%) 5.0 % 0.0-10.0 EOSINOPHIL % (test code=EO%) 0.0 % 0.0-5.0 BASOPHIL % (test code=BA%) 0.1 % 0.0-1.0 NUCLEATED RBC % (test code=NRBC%) 0.0 % 0-0 NEUTROPHIL # (test code=NT#) 9.41 K/mm3 1.8-7.7 IMMATURE GRANULOCYTE # (test code=IG#) 0.08 x10 3/uL 0-0.03 LYMPHOCYTE # (test code=LY#) 0.98 K/mm3 1.0-5.0 MONOCYTE # (test code=MO#) 0.55 K/mm3 0-0.8 EOSINOPHIL # (test code=EO#) 0.00 K/mm3 0.0-0.5 BASOPHIL # (test code=BA#) 0.01 K/mm3 0.0-0.2 NUCLEATED RBC # (test code=NRBC#) 0.00 K/mm3 0.0-0.1 MANUAL DIFF REQUIRED (test code=MDIFF) NO, ONLY SCAN NEEDED DIFFERENTIAL [id number] 06:35:00* Test Item Value Reference Range Comments STAIN ACCEPTABILITY (test code=STN ACCEPTABLE) STAIN ACCEPTABLE POLYCHROMASIA (test code=POLC) 1+ HYPOCHROMIA (test code=HYPO) 1+ ANISOCYTOSIS (test code=ANISO) 1+ MACROCYTOSIS (test code=MACR) 1+ PLATELET ESTIMATE (test code=PLTEST) SLIGHTLY DECREASED PLATELET MORPHOLOGY (test code=PLTMORPH) SIZE VARIABLE CBC W/AUTO [id number] 06:31:00* Test Item Value Reference Range Comments WHITE BLOOD CELL (test code=WBC) 11.0 K/mm3 4.5-12.5 RED BLOOD CELL (test code=RBC) 2.73 mill/mm3 3.7-5.2 HEMOGLOBIN (test code=HGB) 7.0 gram/dL 11.5-15.5 HEMATOCRIT (test code=HCT) 24.0 % 36.0-46.0 MEAN CELL VOLUME (test code=MCV) 87.9 fL 80-98 MEAN CELL HGB (test code=MCH) 25.6 picogram 27.0-33.0 MEAN CELL HGB CONCETRATION (test code=MCHC) 29.2 gram/dL 33.0-36.0 RED CELL DISTRIBUTION WIDTH (test code=RDW) 21.0 % 11.6-16.2 RED CELL DISTRIBUTION WIDTH SD (test code=RDW-SD) 66.4 fL 37.0-51.0 PLATELET COUNT (test code=PLT) 100 K/mm3 150-450 MEAN PLATELET VOLUME (test code=MPV) 12.7 fL 6.7-11.0 NEUTROPHIL % (test code=NT%) 85.3 % 39.0-69.0 IMMATURE GRANULOCYTE % (test code=IG%) 0.7 % 0.0-5.0 LYMPHOCYTE % (test code=LY%) 8.9 % 25.0-55.0 MONOCYTE % (test code=MO%) 5.0 % 0.0-10.0 EOSINOPHIL % (test code=EO%) 0.0 % 0.0-5.0 BASOPHIL % (test code=BA%) 0.1 % 0.0-1.0 NUCLEATED RBC % (test code=NRBC%) 0.0 % 0-0 NEUTROPHIL # (test code=NT#) 9.41 K/mm3 1.8-7.7 IMMATURE GRANULOCYTE # (test code=IG#) 0.08 x10 3/uL 0-0.03 LYMPHOCYTE # (test code=LY#) 0.98 K/mm3 1.0-5.0 MONOCYTE # (test code=MO#) 0.55 K/mm3 0-0.8 EOSINOPHIL # (test code=EO#) 0.00 K/mm3 0.0-0.5 BASOPHIL # (test code=BA#) 0.01 K/mm3 0.0-0.2 NUCLEATED RBC # (test code=NRBC#) 0.00 K/mm3 0.0-0.1 MANUAL DIFF REQUIRED (test code=MDIFF) NO, ONLY SCAN NEEDED DIFFERENTIAL [id number] 06:31:00* Test Item Value Reference Range Comments STAIN ACCEPTABILITY (test code=STN ACCEPTABLE) MORPHOLOGY COMMENT (test code=MOC) PLATELET ESTIMATE (test code=PLTEST) PLATELET MORPHOLOGY (test code=PLTMORPH) BASIC METABOLIC [id number] 06:28:00* Test Item Value Reference Range Comments SODIUM (test code=NA) 139 mmol/L 136-145 POTASSIUM (test code=K) 5.1 mmol/L 3.5-5.1 CHLORIDE (test code=CL) 108.0 mmol/L 98-107 CARBON DIOXIDE (test code=CO2) 22.0 mmol/L 21-32 ANION GAP (test code=GAP) 14.1 10-20 GLUCOSE (test code=GLU) 93 mg/dL 74-106 BLOOD UREA NITROGEN (test code=BUN) 58 mg/dL 7-18 GLOMERULAR FILTRATION RATE (test code=GFR) 29 mL/min >=60 Estimated GFR by using Modified MDRD formula.Chronic kidney disease is defined as either kidney damageor GFR <60 mL/min/1.73 m2 for >3 months. CREATININE (test code=CREAT) 1.80 mg/dL 0.55-1.02 Note change in reference range due to change in reagent. BUN/CREATININE RATIO (test code=BUN/CREA) 32.2 10-20 CALCIUM (test code=CA) 9.4 mg/dL 8.5-10.1 CBC W/AUTO [id number] 06:27:00* Test Item Value Reference Range Comments WHITE BLOOD CELL (test code=WBC) 11.0 K/mm3 4.5-12.5 RED BLOOD CELL (test code=RBC) 2.73 mill/mm3 3.7-5.2 HEMOGLOBIN (test code=HGB) 7.0 gram/dL 11.5-15.5 HEMATOCRIT (test code=HCT) 24.0 % 36.0-46.0 MEAN CELL VOLUME (test code=MCV) 87.9 fL 80-98 MEAN CELL HGB (test code=MCH) 25.6 picogram 27.0-33.0 MEAN CELL HGB CONCETRATION (test code=MCHC) 29.2 gram/dL 33.0-36.0 RED CELL DISTRIBUTION WIDTH (test code=RDW) 21.0 % 11.6-16.2 RED CELL DISTRIBUTION WIDTH SD (test code=RDW-SD) 66.4 fL 37.0-51.0 PLATELET COUNT (test code=PLT) 100 K/mm3 150-450 MEAN PLATELET VOLUME (test code=MPV) 12.7 fL 6.7-11.0 NEUTROPHIL % (test code=NT%) 85.3 % 39.0-69.0 IMMATURE GRANULOCYTE % (test code=IG%) 0.7 % 0.0-5.0 LYMPHOCYTE % (test code=LY%) 8.9 % 25.0-55.0 MONOCYTE % (test code=MO%) 5.0 % 0.0-10.0 EOSINOPHIL % (test code=EO%) 0.0 % 0.0-5.0 BASOPHIL % (test code=BA%) 0.1 % 0.0-1.0 NUCLEATED RBC % (test code=NRBC%) 0.0 % 0-0 NEUTROPHIL # (test code=NT#) 9.41 K/mm3 1.8-7.7 IMMATURE GRANULOCYTE # (test code=IG#) 0.08 x10 3/uL 0-0.03 LYMPHOCYTE # (test code=LY#) 0.98 K/mm3 1.0-5.0 MONOCYTE # (test code=MO#) 0.55 K/mm3 0-0.8 EOSINOPHIL # (test code=EO#) 0.00 K/mm3 0.0-0.5 BASOPHIL # (test code=BA#) 0.01 K/mm3 0.0-0.2 NUCLEATED RBC # (test code=NRBC#) 0.00 K/mm3 0.0-0.1 MANUAL DIFF REQUIRED (test code=MDIFF) NO, ONLY SCAN NEEDED DIFFERENTIAL [id number] 06:27:00* Test Item Value Reference Range Comments STAIN ACCEPTABILITY (test code=STN ACCEPTABLE) CABOT RINGS (test code=CAB) MORPHOLOGY COMMENT (test code=MOC) PLATELET ESTIMATE (test code=PLTEST) PLATELET MORPHOLOGY (test code=PLTMORPH) CBC W/AUTO [id number] 06:27:00* Test Item Value Reference Range Comments WHITE BLOOD CELL (test code=WBC) 11.0 K/mm3 4.5-12.5 RED BLOOD CELL (test code=RBC) 2.73 mill/mm3 3.7-5.2 HEMOGLOBIN (test code=HGB) 7.0 gram/dL 11.5-15.5 HEMATOCRIT (test code=HCT) 24.0 % 36.0-46.0 MEAN CELL VOLUME (test code=MCV) 87.9 fL 80-98 MEAN CELL HGB (test code=MCH) 25.6 picogram 27.0-33.0 MEAN CELL HGB CONCETRATION (test code=MCHC) 29.2 gram/dL 33.0-36.0 RED CELL DISTRIBUTION WIDTH (test code=RDW) 21.0 % 11.6-16.2 RED CELL DISTRIBUTION WIDTH SD (test code=RDW-SD) 66.4 fL 37.0-51.0 PLATELET COUNT (test code=PLT) 100 K/mm3 150-450 MEAN PLATELET VOLUME (test code=MPV) 12.7 fL 6.7-11.0 NEUTROPHIL % (test code=NT%) 85.3 % 39.0-69.0 IMMATURE GRANULOCYTE % (test code=IG%) 0.7 % 0.0-5.0 LYMPHOCYTE % (test code=LY%) 8.9 % 25.0-55.0 MONOCYTE % (test code=MO%) 5.0 % 0.0-10.0 EOSINOPHIL % (test code=EO%) 0.0 % 0.0-5.0 BASOPHIL % (test code=BA%) 0.1 % 0.0-1.0 NUCLEATED RBC % (test code=NRBC%) 0.0 % 0-0 NEUTROPHIL # (test code=NT#) 9.41 K/mm3 1.8-7.7 IMMATURE GRANULOCYTE # (test code=IG#) 0.08 x10 3/uL 0-0.03 LYMPHOCYTE # (test code=LY#) 0.98 K/mm3 1.0-5.0 MONOCYTE # (test code=MO#) 0.55 K/mm3 0-0.8 EOSINOPHIL # (test code=EO#) 0.00 K/mm3 0.0-0.5 BASOPHIL # (test code=BA#) 0.01 K/mm3 0.0-0.2 NUCLEATED RBC # (test code=NRBC#) 0.00 K/mm3 0.0-0.1 MANUAL DIFF REQUIRED (test code=MDIFF) NO, ONLY SCAN NEEDED DIFFERENTIAL [id number] 06:27:00* Test Item Value Reference Range Comments STAIN ACCEPTABILITY (test code=STN ACCEPTABLE) MORPHOLOGY COMMENT (test code=MOC) PLATELET ESTIMATE (test code=PLTEST) PLATELET MORPHOLOGY (test code=PLTMORPH) CBC W/AUTO [id number] 06:27:00* Test Item Value Reference Range Comments WHITE BLOOD CELL (test code=WBC) 11.0 K/mm3 4.5-12.5 RED BLOOD CELL (test code=RBC) 2.73 mill/mm3 3.7-5.2 HEMOGLOBIN (test code=HGB) 7.0 gram/dL 11.5-15.5 HEMATOCRIT (test code=HCT) 24.0 % 36.0-46.0 MEAN CELL VOLUME (test code=MCV) 87.9 fL 80-98 MEAN CELL HGB (test code=MCH) 25.6 picogram 27.0-33.0 MEAN CELL HGB CONCETRATION (test code=MCHC) 29.2 gram/dL 33.0-36.0 RED CELL DISTRIBUTION WIDTH (test code=RDW) 21.0 % 11.6-16.2 RED CELL DISTRIBUTION WIDTH SD (test code=RDW-SD) 66.4 fL 37.0-51.0 PLATELET COUNT (test code=PLT) 100 K/mm3 150-450 MEAN PLATELET VOLUME (test code=MPV) 12.7 fL 6.7-11.0 NEUTROPHIL % (test code=NT%) 85.3 % 39.0-69.0 IMMATURE GRANULOCYTE % (test code=IG%) 0.7 % 0.0-5.0 LYMPHOCYTE % (test code=LY%) 8.9 % 25.0-55.0 MONOCYTE % (test code=MO%) 5.0 % 0.0-10.0 EOSINOPHIL % (test code=EO%) 0.0 % 0.0-5.0 BASOPHIL % (test code=BA%) 0.1 % 0.0-1.0 NUCLEATED RBC % (test code=NRBC%) 0.0 % 0-0 NEUTROPHIL # (test code=NT#) 9.41 K/mm3 1.8-7.7 IMMATURE GRANULOCYTE # (test code=IG#) 0.08 x10 3/uL 0-0.03 LYMPHOCYTE # (test code=LY#) 0.98 K/mm3 1.0-5.0 MONOCYTE # (test code=MO#) 0.55 K/mm3 0-0.8 EOSINOPHIL # (test code=EO#) 0.00 K/mm3 0.0-0.5 BASOPHIL # (test code=BA#) 0.01 K/mm3 0.0-0.2 NUCLEATED RBC # (test code=NRBC#) 0.00 K/mm3 0.0-0.1 MANUAL DIFF REQUIRED (test code=MDIFF) NO, ONLY SCAN NEEDED DIFFERENTIAL [id number] 06:27:00* Test Item Value Reference Range Comments STAIN ACCEPTABILITY (test code=STN ACCEPTABLE) CABOT RINGS (test code=CAB) MORPHOLOGY COMMENT (test code=MOC) PLATELET ESTIMATE (test code=PLTEST) PLATELET MORPHOLOGY (test code=PLTMORPH) BASIC METABOLIC [id number] 06:22:00* Test Item Value Reference Range Comments SODIUM (test code=NA) 139 mmol/L 136-145 POTASSIUM (test code=K) 5.1 mmol/L 3.5-5.1 CHLORIDE (test code=CL) 108.0 mmol/L 98-107 CARBON DIOXIDE (test code=CO2) mmol/L 21-32 ANION GAP (test code=GAP) 10-20 GLUCOSE (test code=GLU) mg/dL 74-106 BLOOD UREA NITROGEN (test code=BUN) mg/dL 7-18 GLOMERULAR FILTRATION RATE (test code=GFR) mL/min >=60 CREATININE (test code=CREAT) mg/dL 0.55-1.02 BUN/CREATININE RATIO (test code=BUN/CREA) 10-20 CALCIUM (test code=CA) mg/dL 8.5-10.1 FLUID CREATININE [id number] 14:32:00* Test Item Value Reference Range Comments FLUID CREATININE (test code=CREATF) 1.85 SOURCE (test code=SOURCE) PER RN/JERROD SOURCE=ABDOMINAL DRAIN LACTIC [id number] 11:07:00* Test Item Value Reference Range Comments LACTIC ACID (test code=LACT) 1.8 mmol/L 0.4-1.9 - XR CHEST 1 [id number] 07:28:00 FAX: Charito Lowe MD [phone] [place]: B St: ADM FAX: Cece Bonds NP [phone] Name: SIOBHAN BARBOSA [facility] : 1965 Age/S: 53/F [address] Unit #: [id number] Loc: [place] [address] 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 COMPARISON: Previous day. The line and tubes are unchanged. ET tube is low-lying but above the dave. Left lower lobe segmental atelectasis with small effusion. No infiltrates or congestion. Right lung is clear. Cardiomegaly. IMPRESSION: No infiltrates or congestion. Small left effusion with subsegmental atelectasis. at 0728 Reported and signed by: Krystian Johnson M.D. CC: Charito Leroy MD; Cece Bonds NP Technologist: RT KIANA(R); Cathi Brock Trnscrd Date/Time/By: 10/09/2018 (0728) : By: [email or web address] Orig Print D/T: S: 10/09/2018 (0731) PAGE 1 Signed Report CBC W/MANUAL [id number] 06:53:00* Test Item Value Reference Range Comments WHITE BLOOD CELL (test code=WBC) 18.3 K/mm3 4.5-12.5 RED BLOOD CELL (test code=RBC) 3.21 mill/mm3 3.7-5.2 HEMOGLOBIN (test code=HGB) 8.4 gram/dL 11.5-15.5 HEMATOCRIT (test code=HCT) 27.7 % 36.0-46.0 MEAN CELL VOLUME (test code=MCV) 86.3 fL 80-98 MEAN CELL HGB (test code=MCH) 26.2 picogram 27.0-33.0 MEAN CELL HGB CONCETRATION (test code=MCHC) 30.3 gram/dL 33.0-36.0 RED CELL DISTRIBUTION WIDTH (test code=RDW) 20.9 % 11.6-16.2 RED CELL DISTRIBUTION WIDTH SD (test code=RDW-SD) 65.9 fL 37.0-51.0 PLATELET COUNT (test code=PLT) 124 K/mm3 150-450 MEAN PLATELET VOLUME (test code=MPV) 13.4 fL 6.7-11.0 IMMATURE GRANULOCYTE % (test code=IG%) 0.7 % 0.0-5.0 NUCLEATED RBC % (test code=NRBC%) 0.0 % 0-0 NEUTROPHIL # (test code=NT#) 16.87 K/mm3 1.8-7.7 IMMATURE GRANULOCYTE # (test code=IG#) 0.12 x10 3/uL 0-0.03 LYMPHOCYTE # (test code=LY#) 0.92 K/mm3 1.0-5.0 MONOCYTE # (test code=MO#) 0.39 K/mm3 0-0.8 EOSINOPHIL # (test code=EO#) 0.00 K/mm3 0.0-0.5 BASOPHIL # (test code=BA#) 0.02 K/mm3 0.0-0.2 NUCLEATED RBC # (test code=NRBC#) 0.00 K/mm3 0.0-0.1 MANUAL DIFF REQUIRED (test code=MDIFF) YES STAIN ACCEPTABILITY (test code=STN ACCEPTABLE) STAIN ACCEPTABLE TOTAL CELLS COUNTED (test code=TCC) 115 #CELLS SEGMENTED NEUTROPHILS (test code=SEG) 93.0 % 39-69 BAND NEUTROPHIL (test code=BAND) 4.4 % 0-10 LYMPHOCYTE (test code=LYMPH) 2.6 % 25-55 REACTIVE LYMPH (test code=RELYMPH) 0 % MONOCYTE (test code=MON) 0 % 0-10 EOSINOPHIL (test code=EOS) 0 % 0.0-5.0 BASOPHIL (test code=BASO) 0 % 0-1.0 METAMYELOCYTE (test code=META) 0 % 0-0 MYELOCYTE (test code=MYELO) 0 % 0.0-0.0 PROMYELOCYTE (test code=PROM) 0 % 0-0 POLYCHROMASIA (test code=POLC) 2+ POIKILOCYTOSIS (test code=POIK) 3+ ANISOCYTOSIS (test code=ANISO) 2+ MACROCYTOSIS (test code=MACR) 2+ PLATELET ESTIMATE (test code=PLTEST) ADEQUATE PLATELET MORPHOLOGY (test code=PLTMORPH) SIZE VARIABLE IMMATURE FORMS (test code=IMMAT) 0 % CBC W/MANUAL [id number] 06:40:00* Test Item Value Reference Range Comments WHITE BLOOD CELL (test code=WBC) 18.3 K/mm3 4.5-12.5 RED BLOOD CELL (test code=RBC) 3.21 mill/mm3 3.7-5.2 HEMOGLOBIN (test code=HGB) 8.4 gram/dL 11.5-15.5 HEMATOCRIT (test code=HCT) 27.7 % 36.0-46.0 MEAN CELL VOLUME (test code=MCV) 86.3 fL 80-98 MEAN CELL HGB (test code=MCH) 26.2 picogram 27.0-33.0 MEAN CELL HGB CONCETRATION (test code=MCHC) 30.3 gram/dL 33.0-36.0 RED CELL DISTRIBUTION WIDTH (test code=RDW) 20.9 % 11.6-16.2 RED CELL DISTRIBUTION WIDTH SD (test code=RDW-SD) 65.9 fL 37.0-51.0 PLATELET COUNT (test code=PLT) 124 K/mm3 150-450 MEAN PLATELET VOLUME (test code=MPV) 13.4 fL 6.7-11.0 IMMATURE GRANULOCYTE % (test code=IG%) 0.7 % 0.0-5.0 NUCLEATED RBC % (test code=NRBC%) 0.0 % 0-0 NEUTROPHIL # (test code=NT#) 16.87 K/mm3 1.8-7.7 IMMATURE GRANULOCYTE # (test code=IG#) 0.12 x10 3/uL 0-0.03 LYMPHOCYTE # (test code=LY#) 0.92 K/mm3 1.0-5.0 MONOCYTE # (test code=MO#) 0.39 K/mm3 0-0.8 EOSINOPHIL # (test code=EO#) 0.00 K/mm3 0.0-0.5 BASOPHIL # (test code=BA#) 0.02 K/mm3 0.0-0.2 NUCLEATED RBC # (test code=NRBC#) 0.00 K/mm3 0.0-0.1 MANUAL DIFF REQUIRED (test code=MDIFF) YES STAIN ACCEPTABILITY (test code=STN ACCEPTABLE) TOTAL CELLS COUNTED (test code=TCC) #CELLS SEGMENTED NEUTROPHILS (test code=SEG) % 39-69 LYMPHOCYTE (test code=LYMPH) % 25-55 MONOCYTE (test code=MON) % 0-10 EOSINOPHIL (test code=EOS) % 0.0-5.0 CABOT RINGS (test code=CAB) MORPHOLOGY COMMENT (test code=MOC) PLATELET ESTIMATE (test code=PLTEST) PLATELET MORPHOLOGY (test code=PLTMORPH) CBC W/MANUAL [id number] 06:40:00* Test Item Value Reference Range Comments WHITE BLOOD CELL (test code=WBC) 18.3 K/mm3 4.5-12.5 RED BLOOD CELL (test code=RBC) 3.21 mill/mm3 3.7-5.2 HEMOGLOBIN (test code=HGB) 8.4 gram/dL 11.5-15.5 HEMATOCRIT (test code=HCT) 27.7 % 36.0-46.0 MEAN CELL VOLUME (test code=MCV) 86.3 fL 80-98 MEAN CELL HGB (test code=MCH) 26.2 picogram 27.0-33.0 MEAN CELL HGB CONCETRATION (test code=MCHC) 30.3 gram/dL 33.0-36.0 RED CELL DISTRIBUTION WIDTH (test code=RDW) 20.9 % 11.6-16.2 RED CELL DISTRIBUTION WIDTH SD (test code=RDW-SD) 65.9 fL 37.0-51.0 PLATELET COUNT (test code=PLT) 124 K/mm3 150-450 MEAN PLATELET VOLUME (test code=MPV) 13.4 fL 6.7-11.0 IMMATURE GRANULOCYTE % (test code=IG%) 0.7 % 0.0-5.0 NUCLEATED RBC % (test code=NRBC%) 0.0 % 0-0 NEUTROPHIL # (test code=NT#) 16.87 K/mm3 1.8-7.7 IMMATURE GRANULOCYTE # (test code=IG#) 0.12 x10 3/uL 0-0.03 LYMPHOCYTE # (test code=LY#) 0.92 K/mm3 1.0-5.0 MONOCYTE # (test code=MO#) 0.39 K/mm3 0-0.8 EOSINOPHIL # (test code=EO#) 0.00 K/mm3 0.0-0.5 BASOPHIL # (test code=BA#) 0.02 K/mm3 0.0-0.2 NUCLEATED RBC # (test code=NRBC#) 0.00 K/mm3 0.0-0.1 MANUAL DIFF REQUIRED (test code=MDIFF) YES STAIN ACCEPTABILITY (test code=STN ACCEPTABLE) TOTAL CELLS COUNTED (test code=TCC) #CELLS SEGMENTED NEUTROPHILS (test code=SEG) % 39-69 LYMPHOCYTE (test code=LYMPH) % 25-55 MONOCYTE (test code=MON) % 0-10 EOSINOPHIL (test code=EOS) % 0.0-5.0 CABOT RINGS (test code=CAB) MORPHOLOGY COMMENT (test code=MOC) PLATELET ESTIMATE (test code=PLTEST) PLATELET MORPHOLOGY (test code=PLTMORPH) CBC W/MANUAL [id number] 06:40:00* Test Item Value Reference Range Comments WHITE BLOOD CELL (test code=WBC) 18.3 K/mm3 4.5-12.5 RED BLOOD CELL (test code=RBC) 3.21 mill/mm3 3.7-5.2 HEMOGLOBIN (test code=HGB) 8.4 gram/dL 11.5-15.5 HEMATOCRIT (test code=HCT) 27.7 % 36.0-46.0 MEAN CELL VOLUME (test code=MCV) 86.3 fL 80-98 MEAN CELL HGB (test code=MCH) 26.2 picogram 27.0-33.0 MEAN CELL HGB CONCETRATION (test code=MCHC) 30.3 gram/dL 33.0-36.0 RED CELL DISTRIBUTION WIDTH (test code=RDW) 20.9 % 11.6-16.2 RED CELL DISTRIBUTION WIDTH SD (test code=RDW-SD) 65.9 fL 37.0-51.0 PLATELET COUNT (test code=PLT) 124 K/mm3 150-450 MEAN PLATELET VOLUME (test code=MPV) 13.4 fL 6.7-11.0 IMMATURE GRANULOCYTE % (test code=IG%) 0.7 % 0.0-5.0 NUCLEATED RBC % (test code=NRBC%) 0.0 % 0-0 NEUTROPHIL # (test code=NT#) 16.87 K/mm3 1.8-7.7 IMMATURE GRANULOCYTE # (test code=IG#) 0.12 x10 3/uL 0-0.03 LYMPHOCYTE # (test code=LY#) 0.92 K/mm3 1.0-5.0 MONOCYTE # (test code=MO#) 0.39 K/mm3 0-0.8 EOSINOPHIL # (test code=EO#) 0.00 K/mm3 0.0-0.5 BASOPHIL # (test code=BA#) 0.02 K/mm3 0.0-0.2 NUCLEATED RBC # (test code=NRBC#) 0.00 K/mm3 0.0-0.1 MANUAL DIFF REQUIRED (test code=MDIFF) YES STAIN ACCEPTABILITY (test code=STN ACCEPTABLE) TOTAL CELLS COUNTED (test code=TCC) #CELLS SEGMENTED NEUTROPHILS (test code=SEG) % 39-69 LYMPHOCYTE (test code=LYMPH) % 25-55 MONOCYTE (test code=MON) % 0-10 EOSINOPHIL (test code=EOS) % 0.0-5.0 MORPHOLOGY COMMENT (test code=MOC) PLATELET ESTIMATE (test code=PLTEST) PLATELET MORPHOLOGY (test code=PLTMORPH) CBC W/MANUAL [id number] 06:40:00* Test Item Value Reference Range Comments WHITE BLOOD CELL (test code=WBC) 18.3 K/mm3 4.5-12.5 RED BLOOD CELL (test code=RBC) 3.21 mill/mm3 3.7-5.2 HEMOGLOBIN (test code=HGB) 8.4 gram/dL 11.5-15.5 HEMATOCRIT (test code=HCT) 27.7 % 36.0-46.0 MEAN CELL VOLUME (test code=MCV) 86.3 fL 80-98 MEAN CELL HGB (test code=MCH) 26.2 picogram 27.0-33.0 MEAN CELL HGB CONCETRATION (test code=MCHC) 30.3 gram/dL 33.0-36.0 RED CELL DISTRIBUTION WIDTH (test code=RDW) 20.9 % 11.6-16.2 RED CELL DISTRIBUTION WIDTH SD (test code=RDW-SD) 65.9 fL 37.0-51.0 PLATELET COUNT (test code=PLT) 124 K/mm3 150-450 MEAN PLATELET VOLUME (test code=MPV) 13.4 fL 6.7-11.0 IMMATURE GRANULOCYTE % (test code=IG%) 0.7 % 0.0-5.0 NUCLEATED RBC % (test code=NRBC%) 0.0 % 0-0 NEUTROPHIL # (test code=NT#) 16.87 K/mm3 1.8-7.7 IMMATURE GRANULOCYTE # (test code=IG#) 0.12 x10 3/uL 0-0.03 LYMPHOCYTE # (test code=LY#) 0.92 K/mm3 1.0-5.0 MONOCYTE # (test code=MO#) 0.39 K/mm3 0-0.8 EOSINOPHIL # (test code=EO#) 0.00 K/mm3 0.0-0.5 BASOPHIL # (test code=BA#) 0.02 K/mm3 0.0-0.2 NUCLEATED RBC # (test code=NRBC#) 0.00 K/mm3 0.0-0.1 MANUAL DIFF REQUIRED (test code=MDIFF) YES STAIN ACCEPTABILITY (test code=STN ACCEPTABLE) TOTAL CELLS COUNTED (test code=TCC) #CELLS SEGMENTED NEUTROPHILS (test code=SEG) % 39-69 LYMPHOCYTE (test code=LYMPH) % 25-55 MONOCYTE (test code=MON) % 0-10 MORPHOLOGY COMMENT (test code=MOC) PLATELET ESTIMATE (test code=PLTEST) PLATELET MORPHOLOGY (test code=PLTMORPH) CBC W/MANUAL [id number] 06:40:00* Test Item Value Reference Range Comments WHITE BLOOD CELL (test code=WBC) 18.3 K/mm3 4.5-12.5 RED BLOOD CELL (test code=RBC) 3.21 mill/mm3 3.7-5.2 HEMOGLOBIN (test code=HGB) 8.4 gram/dL 11.5-15.5 HEMATOCRIT (test code=HCT) 27.7 % 36.0-46.0 MEAN CELL VOLUME (test code=MCV) 86.3 fL 80-98 MEAN CELL HGB (test code=MCH) 26.2 picogram 27.0-33.0 MEAN CELL HGB CONCETRATION (test code=MCHC) 30.3 gram/dL 33.0-36.0 RED CELL DISTRIBUTION WIDTH (test code=RDW) 20.9 % 11.6-16.2 RED CELL DISTRIBUTION WIDTH SD (test code=RDW-SD) 65.9 fL 37.0-51.0 PLATELET COUNT (test code=PLT) 124 K/mm3 150-450 MEAN PLATELET VOLUME (test code=MPV) 13.4 fL 6.7-11.0 IMMATURE GRANULOCYTE % (test code=IG%) 0.7 % 0.0-5.0 NUCLEATED RBC % (test code=NRBC%) 0.0 % 0-0 NEUTROPHIL # (test code=NT#) 16.87 K/mm3 1.8-7.7 IMMATURE GRANULOCYTE # (test code=IG#) 0.12 x10 3/uL 0-0.03 LYMPHOCYTE # (test code=LY#) 0.92 K/mm3 1.0-5.0 MONOCYTE # (test code=MO#) 0.39 K/mm3 0-0.8 EOSINOPHIL # (test code=EO#) 0.00 K/mm3 0.0-0.5 BASOPHIL # (test code=BA#) 0.02 K/mm3 0.0-0.2 NUCLEATED RBC # (test code=NRBC#) 0.00 K/mm3 0.0-0.1 MANUAL DIFF REQUIRED (test code=MDIFF) YES STAIN ACCEPTABILITY (test code=STN ACCEPTABLE) TOTAL CELLS COUNTED (test code=TCC) #CELLS SEGMENTED NEUTROPHILS (test code=SEG) % 39-69 LYMPHOCYTE (test code=LYMPH) % 25-55 MONOCYTE (test code=MON) % 0-10 EOSINOPHIL (test code=EOS) % 0.0-5.0 CABOT RINGS (test code=CAB) MORPHOLOGY COMMENT (test code=MOC) PLATELET ESTIMATE (test code=PLTEST) PLATELET MORPHOLOGY (test code=PLTMORPH) LACTIC [id number] 06:36:00* Test Item Value Reference Range Comments LACTIC ACID (test code=LACT) 2.1 mmol/L 0.4-1.9 Results called to [id number] by V.[email or web address].[email or web address] 10/09/18 0634Critical results verified and read back by Nurse? Y BASIC METABOLIC [id number] 06:32:00* Test Item Value Reference Range Comments SODIUM (test code=NA) 141 mmol/L 136-145 POTASSIUM (test code=K) 5.3 mmol/L 3.5-5.1 CHLORIDE (test code=CL) 110.0 mmol/L 98-107 CARBON DIOXIDE (test code=CO2) 22.0 mmol/L 21-32 ANION GAP (test code=GAP) 14.3 10-20 GLUCOSE (test code=GLU) 104 mg/dL 74-106 BLOOD UREA NITROGEN (test code=BUN) 53 mg/dL 7-18 GLOMERULAR FILTRATION RATE (test code=GFR) 31 mL/min >=60 Estimated GFR by using Modified MDRD formula.Chronic kidney disease is defined as either kidney damageor GFR <60 mL/min/1.73 m2 for >3 months. CREATININE (test code=CREAT) 1.70 mg/dL 0.55-1.02 Note change in reference range due to change in reagent. BUN/CREATININE RATIO (test code=BUN/CREA) 31.2 10-20 CALCIUM (test code=CA) 9.0 mg/dL 8.5-10.1 [id number] 06:32:00* Test Item Value Reference Range Comments PHOSPHORUS (test code=PHOS) 5.2 mg/dL 2.5-4.9 [id number] 06:32:00* Test Item Value Reference Range Comments MAGNESIUM (test code=MAG) 2.0 mg/dL 1.8-2.4 CALCIUM [id number] 06:32:00* Test Item Value Reference Range Comments CALCIUM IONIZED (test code=MARIAH) 1.43 mmol/L 1.12-1.32 BASIC METABOLIC [id number] 06:28:00* Test Item Value Reference Range Comments SODIUM (test code=NA) 141 mmol/L 136-145 POTASSIUM (test code=K) 5.3 mmol/L 3.5-5.1 CHLORIDE (test code=CL) 110.0 mmol/L 98-107 CARBON DIOXIDE (test code=CO2) mmol/L 21-32 ANION GAP (test code=GAP) 10-20 GLUCOSE (test code=GLU) mg/dL 74-106 BLOOD UREA NITROGEN (test code=BUN) mg/dL 7-18 GLOMERULAR FILTRATION RATE (test code=GFR) mL/min >=60 CREATININE (test code=CREAT) mg/dL 0.55-1.02 BUN/CREATININE RATIO (test code=BUN/CREA) 10-20 CALCIUM (test code=CA) mg/dL 8.5-10.1 [id number] 06:28:00* Test Item Value Reference Range Comments PHOSPHORUS (test code=PHOS) mg/dL 2.5-4.9 [id number] 06:28:00* Test Item Value Reference Range Comments MAGNESIUM (test code=MAG) mg/dL 1.8-2.4 CALCIUM [id number] 06:28:00* Test Item Value Reference Range Comments CALCIUM IONIZED (test code=MARIAH) 1.43 mmol/L 1.12-1.32 BASIC METABOLIC [id number] 06:17:00* Test Item Value Reference Range Comments SODIUM (test code=NA) mmol/L 136-145 POTASSIUM (test code=K) mmol/L 3.5-5.1 CHLORIDE (test code=CL) mmol/L 98-107 CARBON DIOXIDE (test code=CO2) mmol/L 21-32 ANION GAP (test code=GAP) 10-20 GLUCOSE (test code=GLU) mg/dL 74-106 BLOOD UREA NITROGEN (test code=BUN) mg/dL 7-18 GLOMERULAR FILTRATION RATE (test code=GFR) mL/min >=60 CREATININE (test code=CREAT) mg/dL 0.55-1.02 BUN/CREATININE RATIO (test code=BUN/CREA) 10-20 CALCIUM (test code=CA) mg/dL 8.5-10.1 [id number] 06:17:00* Test Item Value Reference Range Comments PHOSPHORUS (test code=PHOS) mg/dL 2.5-4.9 [id number] 06:17:00* Test Item Value Reference Range Comments MAGNESIUM (test code=MAG) mg/dL 1.8-2.4 CALCIUM [id number] 06:17:00* Test Item Value Reference Range Comments CALCIUM IONIZED (test code=MARIAH) 1.43 mmol/L 1.12-1.32 ARTERIAL BLOOD [id number] 05:37:00* Test Item Value Reference Range Comments ARTERIAL BLOOD GAS PH (test code=PHA) 7.34 7.35-7.45 ARTERIAL BLOOD GAS PCO2 (test code=PCO2A) 39.1 mm Hg 35-45 ARTERIAL BLOOD GAS PO2 (test code=PO2A) 50.6 mmHg 80-100 BICARBONATE TOTAL HCO3 (test code=HCO3) 20.6 mmol/L 23.0-27.0 BASE EXCESS (test code=TERRENCE) -4.8 mmol/L -3.0-5.0 Results called to and read back by Aditivenolester 05:35 10/09/2018; by hardeep peralta, aeronautical engineering technologist ABG O2 SATURATION (test code=SATA) 82.1 % 90.0-98.0 ABG TYPE (test code=TYPEA) Arterial FIO2 (test code=FIO2A) 30.0 ABG VENT MODE (test code=MODEA) CPAP ABG VENT RESP RATE (test code=RRA) 16.0 per min ABG PEEP (test code=PEEPA) 5.0 cmH2O ABG PRESSURE SUPPORT (test code=PSABG) 5 cmH2O ABG SITE (test code=SITEA) Lt RADIAL ARTERY MODIFIED ALLENS (test code=MODALL) Yes CHECK PERFORMED SODIUM (test code=NA/ABG) 132.9 mEq/L 135-148 POTASSIUM (test code=K/ABG) 5.2 mEq/L 3.5-4.5 CHLORIDE (test code=CL/ABG) 108 mEq/L 98-106 GLUCOSE (test code=GLU/ABG) 109 mg/dL 74-99 HEMATOCRIT (test code=HCT/ABG) 29 % 35-47 IONIZED CALCIUM (test code=CAIABG) 1.33 mmol/L 1.1-1.37 TOTAL HGB (test code=THB) 9.8 gram/dL 11.5-15.5 HGB O2 SAT (test code=HBOSAT) 81.4 % 94.00-98.00 CARBOXYHEMOGLOBIN (test code=HOHGBT) 0.2 %totalHg 0.5-1.5 Results called to and read back by Aditiveke 10/09/2018; by hardeep peralta, adina METHEMOGLOBIN (test code=METHGB) 0.6 % 0.0-1.50 O2 CONTENT (test code=O2CT) 11.2 % vol 18.0-22.0 LACTIC [id number] 23:19:00* Test Item Value Reference Range Comments LACTIC ACID (test code=LACT) 1.4 mmol/L 0.4-1.9 CBC W/AUTO [id number] 21:45:00* Test Item Value Reference Range Comments WHITE BLOOD CELL (test code=WBC) 16.6 K/mm3 4.5-12.5 RED BLOOD CELL (test code=RBC) 3.43 mill/mm3 3.7-5.2 HEMOGLOBIN (test code=HGB) 8.8 gram/dL 11.5-15.5 HEMATOCRIT (test code=HCT) 29.7 % 36.0-46.0 MEAN CELL VOLUME (test code=MCV) 86.6 fL 80-98 MEAN CELL HGB (test code=MCH) 25.7 picogram 27.0-33.0 MEAN CELL HGB CONCETRATION (test code=MCHC) 29.6 gram/dL 33.0-36.0 RED CELL DISTRIBUTION WIDTH (test code=RDW) 20.9 % 11.6-16.2 RED CELL DISTRIBUTION WIDTH SD (test code=RDW-SD) 65.9 fL 37.0-51.0 PLATELET COUNT (test code=PLT) 117 K/mm3 150-450 MEAN PLATELET VOLUME (test code=MPV) TEST NOT PERFORMED fL 6.7-11.0 Unable to determine due to platelet abnormality , please seethe platelet morphology. NEUTROPHIL % (test code=NT%) 91.9 % 39.0-69.0 IMMATURE GRANULOCYTE % (test code=IG%) 0.5 % 0.0-5.0 LYMPHOCYTE % (test code=LY%) 4.7 % 25.0-55.0 MONOCYTE % (test code=MO%) 2.7 % 0.0-10.0 EOSINOPHIL % (test code=EO%) 0.1 % 0.0-5.0 BASOPHIL % (test code=BA%) 0.1 % 0.0-1.0 NUCLEATED RBC % (test code=NRBC%) 0.0 % 0-0 NEUTROPHIL # (test code=NT#) 15.22 K/mm3 1.8-7.7 IMMATURE GRANULOCYTE # (test code=IG#) 0.09 x10 3/uL 0-0.03 LYMPHOCYTE # (test code=LY#) 0.78 K/mm3 1.0-5.0 MONOCYTE # (test code=MO#) 0.44 K/mm3 0-0.8 EOSINOPHIL # (test code=EO#) 0.01 K/mm3 0.0-0.5 BASOPHIL # (test code=BA#) 0.01 K/mm3 0.0-0.2 NUCLEATED RBC # (test code=NRBC#) 0.00 K/mm3 0.0-0.1 MANUAL DIFF REQUIRED (test code=MDIFF) NO, ONLY SCAN NEEDED DIFFERENTIAL [id number] 21:45:00* Test Item Value Reference Range Comments STAIN ACCEPTABILITY (test code=STN ACCEPTABLE) STAIN ACCEPTABLE POLYCHROMASIA (test code=POLC) 1+ HYPOCHROMIA (test code=HYPO) 1+ POIKILOCYTOSIS (test code=POIK) 1+ ANISOCYTOSIS (test code=ANISO) 1+ MICROCYTOSIS (test code=MICR) 1+ PLATELET ESTIMATE (test code=PLTEST) DECREASED PLATELET MORPHOLOGY (test code=PLTMORPH) SIZE VARIABLE FEW GIANT PLATELETS SEEN. CBC W/AUTO [id number] 21:44:00* Test Item Value Reference Range Comments WHITE BLOOD CELL (test code=WBC) 16.6 K/mm3 4.5-12.5 RED BLOOD CELL (test code=RBC) 3.43 mill/mm3 3.7-5.2 HEMOGLOBIN (test code=HGB) 8.8 gram/dL 11.5-15.5 HEMATOCRIT (test code=HCT) 29.7 % 36.0-46.0 MEAN CELL VOLUME (test code=MCV) 86.6 fL 80-98 MEAN CELL HGB (test code=MCH) 25.7 picogram 27.0-33.0 MEAN CELL HGB CONCETRATION (test code=MCHC) 29.6 gram/dL 33.0-36.0 RED CELL DISTRIBUTION WIDTH (test code=RDW) 20.9 % 11.6-16.2 RED CELL DISTRIBUTION WIDTH SD (test code=RDW-SD) 65.9 fL 37.0-51.0 PLATELET COUNT (test code=PLT) 117 K/mm3 150-450 MEAN PLATELET VOLUME (test code=MPV) TEST NOT PERFORMED fL 6.7-11.0 Unable to determine due to platelet abnormality , please seethe platelet morphology. NEUTROPHIL % (test code=NT%) 91.9 % 39.0-69.0 IMMATURE GRANULOCYTE % (test code=IG%) 0.5 % 0.0-5.0 LYMPHOCYTE % (test code=LY%) 4.7 % 25.0-55.0 MONOCYTE % (test code=MO%) 2.7 % 0.0-10.0 EOSINOPHIL % (test code=EO%) 0.1 % 0.0-5.0 BASOPHIL % (test code=BA%) 0.1 % 0.0-1.0 NUCLEATED RBC % (test code=NRBC%) 0.0 % 0-0 NEUTROPHIL # (test code=NT#) 15.22 K/mm3 1.8-7.7 IMMATURE GRANULOCYTE # (test code=IG#) 0.09 x10 3/uL 0-0.03 LYMPHOCYTE # (test code=LY#) 0.78 K/mm3 1.0-5.0 MONOCYTE # (test code=MO#) 0.44 K/mm3 0-0.8 EOSINOPHIL # (test code=EO#) 0.01 K/mm3 0.0-0.5 BASOPHIL # (test code=BA#) 0.01 K/mm3 0.0-0.2 NUCLEATED RBC # (test code=NRBC#) 0.00 K/mm3 0.0-0.1 MANUAL DIFF REQUIRED (test code=MDIFF) NO, ONLY SCAN NEEDED DIFFERENTIAL [id number] 21:44:00* Test Item Value Reference Range Comments STAIN ACCEPTABILITY (test code=STN ACCEPTABLE) CABOT RINGS (test code=CAB) MORPHOLOGY COMMENT (test code=MOC) PLATELET ESTIMATE (test code=PLTEST) PLATELET MORPHOLOGY (test code=PLTMORPH) CBC W/AUTO [id number] 21:44:00* Test Item Value Reference Range Comments WHITE BLOOD CELL (test code=WBC) 16.6 K/mm3 4.5-12.5 RED BLOOD CELL (test code=RBC) 3.43 mill/mm3 3.7-5.2 HEMOGLOBIN (test code=HGB) 8.8 gram/dL 11.5-15.5 HEMATOCRIT (test code=HCT) 29.7 % 36.0-46.0 MEAN CELL VOLUME (test code=MCV) 86.6 fL 80-98 MEAN CELL HGB (test code=MCH) 25.7 picogram 27.0-33.0 MEAN CELL HGB CONCETRATION (test code=MCHC) 29.6 gram/dL 33.0-36.0 RED CELL DISTRIBUTION WIDTH (test code=RDW) 20.9 % 11.6-16.2 RED CELL DISTRIBUTION WIDTH SD (test code=RDW-SD) 65.9 fL 37.0-51.0 PLATELET COUNT (test code=PLT) 117 K/mm3 150-450 MEAN PLATELET VOLUME (test code=MPV) TEST NOT PERFORMED fL 6.7-11.0 Unable to determine due to platelet abnormality , please seethe platelet morphology. NEUTROPHIL % (test code=NT%) 91.9 % 39.0-69.0 IMMATURE GRANULOCYTE % (test code=IG%) 0.5 % 0.0-5.0 LYMPHOCYTE % (test code=LY%) 4.7 % 25.0-55.0 MONOCYTE % (test code=MO%) 2.7 % 0.0-10.0 EOSINOPHIL % (test code=EO%) 0.1 % 0.0-5.0 BASOPHIL % (test code=BA%) 0.1 % 0.0-1.0 NUCLEATED RBC % (test code=NRBC%) 0.0 % 0-0 NEUTROPHIL # (test code=NT#) 15.22 K/mm3 1.8-7.7 IMMATURE GRANULOCYTE # (test code=IG#) 0.09 x10 3/uL 0-0.03 LYMPHOCYTE # (test code=LY#) 0.78 K/mm3 1.0-5.0 MONOCYTE # (test code=MO#) 0.44 K/mm3 0-0.8 EOSINOPHIL # (test code=EO#) 0.01 K/mm3 0.0-0.5 BASOPHIL # (test code=BA#) 0.01 K/mm3 0.0-0.2 NUCLEATED RBC # (test code=NRBC#) 0.00 K/mm3 0.0-0.1 MANUAL DIFF REQUIRED (test code=MDIFF) NO, ONLY SCAN NEEDED DIFFERENTIAL [id number] 21:44:00* Test Item Value Reference Range Comments STAIN ACCEPTABILITY (test code=STN ACCEPTABLE) CABOT RINGS (test code=CAB) MORPHOLOGY COMMENT (test code=MOC) PLATELET ESTIMATE (test code=PLTEST) PLATELET MORPHOLOGY (test code=PLTMORPH) CBC W/AUTO [id number] 21:44:00* Test Item Value Reference Range Comments WHITE BLOOD CELL (test code=WBC) 16.6 K/mm3 4.5-12.5 RED BLOOD CELL (test code=RBC) 3.43 mill/mm3 3.7-5.2 HEMOGLOBIN (test code=HGB) 8.8 gram/dL 11.5-15.5 HEMATOCRIT (test code=HCT) 29.7 % 36.0-46.0 MEAN CELL VOLUME (test code=MCV) 86.6 fL 80-98 MEAN CELL HGB (test code=MCH) 25.7 picogram 27.0-33.0 MEAN CELL HGB CONCETRATION (test code=MCHC) 29.6 gram/dL 33.0-36.0 RED CELL DISTRIBUTION WIDTH (test code=RDW) 20.9 % 11.6-16.2 RED CELL DISTRIBUTION WIDTH SD (test code=RDW-SD) 65.9 fL 37.0-51.0 PLATELET COUNT (test code=PLT) 117 K/mm3 150-450 MEAN PLATELET VOLUME (test code=MPV) TEST NOT PERFORMED fL 6.7-11.0 Unable to determine due to platelet abnormality , please seethe platelet morphology. NEUTROPHIL % (test code=NT%) 91.9 % 39.0-69.0 IMMATURE GRANULOCYTE % (test code=IG%) 0.5 % 0.0-5.0 LYMPHOCYTE % (test code=LY%) 4.7 % 25.0-55.0 MONOCYTE % (test code=MO%) 2.7 % 0.0-10.0 EOSINOPHIL % (test code=EO%) 0.1 % 0.0-5.0 BASOPHIL % (test code=BA%) 0.1 % 0.0-1.0 NUCLEATED RBC % (test code=NRBC%) 0.0 % 0-0 NEUTROPHIL # (test code=NT#) 15.22 K/mm3 1.8-7.7 IMMATURE GRANULOCYTE # (test code=IG#) 0.09 x10 3/uL 0-0.03 LYMPHOCYTE # (test code=LY#) 0.78 K/mm3 1.0-5.0 MONOCYTE # (test code=MO#) 0.44 K/mm3 0-0.8 EOSINOPHIL # (test code=EO#) 0.01 K/mm3 0.0-0.5 BASOPHIL # (test code=BA#) 0.01 K/mm3 0.0-0.2 NUCLEATED RBC # (test code=NRBC#) 0.00 K/mm3 0.0-0.1 MANUAL DIFF REQUIRED (test code=MDIFF) NO, ONLY SCAN NEEDED DIFFERENTIAL [id number] 21:44:00* Test Item Value Reference Range Comments STAIN ACCEPTABILITY (test code=STN ACCEPTABLE) MORPHOLOGY COMMENT (test code=MOC) PLATELET ESTIMATE (test code=PLTEST) PLATELET MORPHOLOGY (test code=PLTMORPH) CBC W/AUTO [id number] 21:44:00* Test Item Value Reference Range Comments WHITE BLOOD CELL (test code=WBC) 16.6 K/mm3 4.5-12.5 RED BLOOD CELL (test code=RBC) 3.43 mill/mm3 3.7-5.2 HEMOGLOBIN (test code=HGB) 8.8 gram/dL 11.5-15.5 HEMATOCRIT (test code=HCT) 29.7 % 36.0-46.0 MEAN CELL VOLUME (test code=MCV) 86.6 fL 80-98 MEAN CELL HGB (test code=MCH) 25.7 picogram 27.0-33.0 MEAN CELL HGB CONCETRATION (test code=MCHC) 29.6 gram/dL 33.0-36.0 RED CELL DISTRIBUTION WIDTH (test code=RDW) 20.9 % 11.6-16.2 RED CELL DISTRIBUTION WIDTH SD (test code=RDW-SD) 65.9 fL 37.0-51.0 PLATELET COUNT (test code=PLT) 117 K/mm3 150-450 MEAN PLATELET VOLUME (test code=MPV) TEST NOT PERFORMED fL 6.7-11.0 Unable to determine due to platelet abnormality , please seethe platelet morphology. NEUTROPHIL % (test code=NT%) 91.9 % 39.0-69.0 IMMATURE GRANULOCYTE % (test code=IG%) 0.5 % 0.0-5.0 LYMPHOCYTE % (test code=LY%) 4.7 % 25.0-55.0 MONOCYTE % (test code=MO%) 2.7 % 0.0-10.0 EOSINOPHIL % (test code=EO%) 0.1 % 0.0-5.0 BASOPHIL % (test code=BA%) 0.1 % 0.0-1.0 NUCLEATED RBC % (test code=NRBC%) 0.0 % 0-0 NEUTROPHIL # (test code=NT#) 15.22 K/mm3 1.8-7.7 IMMATURE GRANULOCYTE # (test code=IG#) 0.09 x10 3/uL 0-0.03 LYMPHOCYTE # (test code=LY#) 0.78 K/mm3 1.0-5.0 MONOCYTE # (test code=MO#) 0.44 K/mm3 0-0.8 EOSINOPHIL # (test code=EO#) 0.01 K/mm3 0.0-0.5 BASOPHIL # (test code=BA#) 0.01 K/mm3 0.0-0.2 NUCLEATED RBC # (test code=NRBC#) 0.00 K/mm3 0.0-0.1 MANUAL DIFF REQUIRED (test code=MDIFF) NO, ONLY SCAN NEEDED DIFFERENTIAL [id number] 21:44:00* Test Item Value Reference Range Comments STAIN ACCEPTABILITY (test code=STN ACCEPTABLE) CABOT RINGS (test code=CAB) MORPHOLOGY COMMENT (test code=MOC) PLATELET ESTIMATE (test code=PLTEST) PLATELET MORPHOLOGY (test code=PLTMORPH) THROMBOPLASTIN TIME [id number] 19:51:00* Test Item Value Reference Range Comments THROMBOPLASTIN TIME PARTIAL (test code=PTT) 39.8 seconds 25.0-36.5 IS PATIENT ON ANTICOAGULANTS? NLACTIC [id number] 19:32:00* Test Item Value Reference Range Comments LACTIC ACID (test code=LACT) 2.9 mmol/L 0.4-1.9 Results called to [id number] by V.LAB.LT 10/08/18 1932Critical results verified and read back by Nurse? Y COMPREHENSIVE METABOLIC [id number] 19:31:00* Test Item Value Reference Range Comments SODIUM (test code=NA) 139 mmol/L 136-145 POTASSIUM (test code=K) 5.2 mmol/L 3.5-5.1 CHLORIDE (test code=CL) 110.0 mmol/L 98-107 CARBON DIOXIDE (test code=CO2) 23.0 mmol/L 21-32 ANION GAP (test code=GAP) 11.2 10-20 GLUCOSE (test code=GLU) 83 mg/dL 74-106 BLOOD UREA NITROGEN (test code=BUN) 52 mg/dL 7-18 GLOMERULAR FILTRATION RATE (test code=GFR) 29 mL/min >=60 Estimated GFR by using Modified MDRD formula.Chronic kidney disease is defined as either kidney damageor GFR <60 mL/min/1.73 m2 for >3 months. CREATININE (test code=CREAT) 1.80 mg/dL 0.55-1.02 Note change in reference range due to change in reagent. BUN/CREATININE RATIO (test code=BUN/CREA) 28.9 10-20 TOTAL PROTEIN (test code=PROT) 4.3 gram/dL 6.4-8.2 ALBUMIN (test code=ALB) 1.1 g/dL 3.4-5.0 GLOBULIN (test code=GLOB) 3.2 gram/dL 2.7-4.2 ALBUMIN/GLOBULIN RATIO (test code=A/G) 0.3 0.75-1.50 CALCIUM (test code=CA) 9.4 mg/dL 8.5-10.1 BILIRUBIN TOTAL (test code=BILT) 1.80 mg/dL 0.0-1.0 SGOT/AST (test code=AST) 36 IUnit/L 15-37 SGPT/ALT (test code=ALT) 32 IUnit/L 12-78 ALKALINE PHOSPHATASE TOTAL (test code=ALKP) 345 IUnit/L 45-117 Note change in reference range due to change in reagent. [id number] 19:31:00* Test Item Value Reference Range Comments PHOSPHORUS (test code=PHOS) 5.0 mg/dL 2.5-4.9 [id number] 19:31:00* Test Item Value Reference Range Comments MAGNESIUM (test code=MAG) 1.8 mg/dL 1.8-2.4 COMPREHENSIVE METABOLIC [id number] 19:29:00* Test Item Value Reference Range Comments SODIUM (test code=NA) 139 mmol/L 136-145 POTASSIUM (test code=K) 5.2 mmol/L 3.5-5.1 CHLORIDE (test code=CL) 110.0 mmol/L 98-107 CARBON DIOXIDE (test code=CO2) mmol/L 21-32 ANION GAP (test code=GAP) 10-20 GLUCOSE (test code=GLU) mg/dL 74-106 BLOOD UREA NITROGEN (test code=BUN) mg/dL 7-18 GLOMERULAR FILTRATION RATE (test code=GFR) mL/min >=60 CREATININE (test code=CREAT) mg/dL 0.55-1.02 BUN/CREATININE RATIO (test code=BUN/CREA) 10-20 TOTAL PROTEIN (test code=PROT) gram/dL 6.4-8.2 ALBUMIN (test code=ALB) g/dL 3.4-5.0 GLOBULIN (test code=GLOB) gram/dL 2.7-4.2 ALBUMIN/GLOBULIN RATIO (test code=A/G) 0.75-1.50 CALCIUM (test code=CA) mg/dL 8.5-10.1 BILIRUBIN TOTAL (test code=BILT) mg/dL 0.0-1.0 SGOT/AST (test code=AST) IUnit/L 15-37 SGPT/ALT (test code=ALT) IUnit/L 12-78 ALKALINE PHOSPHATASE TOTAL (test code=ALKP) IUnit/L 45-117 [id number] 19:29:00* Test Item Value Reference Range Comments PHOSPHORUS (test code=PHOS) mg/dL 2.5-4.9 [id number] 19:29:00* Test Item Value Reference Range Comments MAGNESIUM (test code=MAG) mg/dL 1.8-2.4 - XR CHEST 1 [id number] 19:20:00 FAX: Charito Lowe MD [phone] [place]: St: [facility] FAX: Jeffrey Rivera MD [phone] Name: SIOBHAN BARBOSA [facility] : 1965 Age/S: 53/F [address] [facility] Unit #: [id number] Loc: [id number] [place] [address] Phys: Jeffrey Rivera MD Acct: [id number] Dis Date: Status: ADM IN PHONE #: [phone] Exam Date: 10/08/2018 1853 FAX #: [phone] Reason: S/P SURGERY. EXAMS: CPT CODE: [id number] XR CHEST 1 V [id number] HISTORY: Post surgery. Sepsis and urinoma. COMPARISON chest x-ray from September 27, 2018. Right line and the ET tube and NG tube are unchanged in position. Small bibasal effusions. Subsegmental bibasal atelectasis. No infiltrates or congestion. Mild cardiomegaly. IMPRESSION: Small bibasal effusions with subsegmental atelectasis without infiltrates or congestion. Alyce ctronically Signed by Michelet Johnson on 10/08/2018 at 1920 Reported and signed by: Krystian Johnson M.D. CC: Charito Rea MD; Jeffrey Rivera MD Technologist: JEAN CARLOS RETANA (R); Cathi Brock Trnscrd Date/Time/By: 10/08/2018 () : By: [email or web address] Orig Print D/T: S: 10/08/2018 (1922) PAGE 1 Signed Report ARTERIAL BLOOD [id number] 19:10:00* Test Item Value Reference Range Comments ARTERIAL BLOOD GAS PH (test code=PHA) 7.36 7.35-7.45 ARTERIAL BLOOD GAS PCO2 (test code=PCO2A) 37.0 mm Hg 35-45 ARTERIAL BLOOD GAS PO2 (test code=PO2A) 115.8 mmHg 80-100 BICARBONATE TOTAL HCO3 (test code=HCO3) 20.6 mmol/L 23.0-27.0 BASE EXCESS (test code=TERRENCE) -4.3 mmol/L -3.0-5.0 Results called to and read back by dinh 19:09 - 10/08/2018; by misael ABG O2 SATURATION (test code=SATA) 97.6 % 90.0-98.0 ABG TYPE (test code=TYPEA) Arterial FIO2 (test code=FIO2A) 80.0 ABG VENT MODE (test code=MODEA) Assist Control ABG VENT RESP RATE (test code=RRA) 16.0 per min ABG TIDAL VOLUME (test code=TVA) 450.0 mL ABG PEEP (test code=PEEPA) 5.0 cmH2O ABG SITE (test code=SITEA) ARTERIAL LINE HEMATOCRIT (test code=HCT/ABG) 27 % 35-47 TOTAL HGB (test code=THB) 9.3 gram/dL 11.5-15.5 HGB O2 SAT (test code=HBOSAT) 97.0 % 94.00-98.00 CARBOXYHEMOGLOBIN (test code=HOHGBT) 0.1 %totalHg 0.5-1.5 Results called to and read back by dinh 19:09 - 10/08/2018; by misael METHEMOGLOBIN (test code=METHGB) 0.5 % 0.0-1.50 O2 CONTENT (test code=O2CT) 12.9 % vol 18.0-22.0 CBC W/MANUAL [id number] 10:49:00* Test Item Value Reference Range Comments WHITE BLOOD CELL (test code=WBC) 11.8 K/mm3 4.5-12.5 RED BLOOD CELL (test code=RBC) 3.98 mill/mm3 3.7-5.2 HEMOGLOBIN (test code=HGB) 10.1 gram/dL 11.5-15.5 HEMATOCRIT (test code=HCT) 34.7 % 36.0-46.0 MEAN CELL VOLUME (test code=MCV) 87.2 fL 80-98 MEAN CELL HGB (test code=MCH) 25.4 picogram 27.0-33.0 MEAN CELL HGB CONCETRATION (test code=MCHC) 29.1 gram/dL 33.0-36.0 RED CELL DISTRIBUTION WIDTH (test code=RDW) 21.1 % 11.6-16.2 RED CELL DISTRIBUTION WIDTH SD (test code=RDW-SD) 66.4 fL 37.0-51.0 PLATELET COUNT (test code=PLT) 99 K/mm3 150-450 IMMATURE GRANULOCYTE % (test code=IG%) 0.6 % 0.0-5.0 NUCLEATED RBC % (test code=NRBC%) 0.0 % 0-0 NEUTROPHIL # (test code=NT#) 9.80 K/mm3 1.8-7.7 IMMATURE GRANULOCYTE # (test code=IG#) 0.07 x10 3/uL 0-0.03 LYMPHOCYTE # (test code=LY#) 1.25 K/mm3 1.0-5.0 MONOCYTE # (test code=MO#) 0.70 K/mm3 0-0.8 EOSINOPHIL # (test code=EO#) 0.01 K/mm3 0.0-0.5 BASOPHIL # (test code=BA#) 0.01 K/mm3 0.0-0.2 NUCLEATED RBC # (test code=NRBC#) 0.00 K/mm3 0.0-0.1 MANUAL DIFF REQUIRED (test code=MDIFF) YES STAIN ACCEPTABILITY (test code=STN ACCEPTABLE) STAIN ACCEPTABLE TOTAL CELLS COUNTED (test code=TCC) 115 #CELLS SEGMENTED NEUTROPHILS (test code=SEG) 80.9 % 39-69 BAND NEUTROPHIL (test code=BAND) 1.7 % 0-10 LYMPHOCYTE (test code=LYMPH) 9.6 % 25-55 REACTIVE LYMPH (test code=RELYMPH) 1.7 % MONOCYTE (test code=MON) 6.1 % 0-10 EOSINOPHIL (test code=EOS) 0 % 0.0-5.0 BASOPHIL (test code=BASO) 0 % 0-1.0 METAMYELOCYTE (test code=META) 0 % 0-0 MYELOCYTE (test code=MYELO) 0 % 0.0-0.0 PROMYELOCYTE (test code=PROM) 0 % 0-0 POLYCHROMASIA (test code=POLC) 1+ HYPOCHROMIA (test code=HYPO) 1+ POIKILOCYTOSIS (test code=POIK) 2+ ANISOCYTOSIS (test code=ANISO) 2+ PLATELET ESTIMATE (test code=PLTEST) DECREASED PLATELET MORPHOLOGY (test code=PLTMORPH) SIZE VARIABLE IMMATURE FORMS (test code=IMMAT) 0 % BASIC METABOLIC [id number] 07:53:00* Test Item Value Reference Range Comments SODIUM (test code=NA) 139 mmol/L 136-145 RESULT VERIFIED BY REPEAT ANALYSIS POTASSIUM (test code=K) 5.1 mmol/L 3.5-5.1 CHLORIDE (test code=CL) 109.0 mmol/L 98-107 CARBON DIOXIDE (test code=CO2) 22.0 mmol/L 21-32 ANION GAP (test code=GAP) 13.1 10-20 GLUCOSE (test code=GLU) 79 mg/dL 74-106 BLOOD UREA NITROGEN (test code=BUN) 51 mg/dL 7-18 GLOMERULAR FILTRATION RATE (test code=GFR) 31 mL/min >=60 Estimated GFR by using Modified MDRD formula.Chronic kidney disease is defined as either kidney damageor GFR <60 mL/min/1.73 m2 for >3 months. CREATININE (test code=CREAT) 1.70 mg/dL 0.55-1.02 Note change in reference range due to change in reagent. BUN/CREATININE RATIO (test code=BUN/CREA) 30.0 10-20 CALCIUM (test code=CA) 9.5 mg/dL 8.5-10.1 BLOOD UREA [id number] 07:35:00* Test Item Value Reference Range Comments BLOOD UREA NITROGEN (test code=BUN) 52 mg/dL 7-18 [id number] 07:35:00* Test Item Value Reference Range Comments CREATININE (test code=CREAT) 1.70 mg/dL 0.55-1.02 Note change in reference range due to change in reagent. CBC W/MANUAL [id number] 07:29:00* Test Item Value Reference Range Comments WHITE BLOOD CELL (test code=WBC) 11.8 K/mm3 4.5-12.5 RED BLOOD CELL (test code=RBC) 3.98 mill/mm3 3.7-5.2 HEMOGLOBIN (test code=HGB) 10.1 gram/dL 11.5-15.5 HEMATOCRIT (test code=HCT) 34.7 % 36.0-46.0 MEAN CELL VOLUME (test code=MCV) 87.2 fL 80-98 MEAN CELL HGB (test code=MCH) 25.4 picogram 27.0-33.0 MEAN CELL HGB CONCETRATION (test code=MCHC) 29.1 gram/dL 33.0-36.0 RED CELL DISTRIBUTION WIDTH (test code=RDW) 21.1 % 11.6-16.2 RED CELL DISTRIBUTION WIDTH SD (test code=RDW-SD) 66.4 fL 37.0-51.0 PLATELET COUNT (test code=PLT) 99 K/mm3 150-450 IMMATURE GRANULOCYTE % (test code=IG%) 0.6 % 0.0-5.0 NUCLEATED RBC % (test code=NRBC%) 0.0 % 0-0 NEUTROPHIL # (test code=NT#) 9.80 K/mm3 1.8-7.7 IMMATURE GRANULOCYTE # (test code=IG#) 0.07 x10 3/uL 0-0.03 LYMPHOCYTE # (test code=LY#) 1.25 K/mm3 1.0-5.0 MONOCYTE # (test code=MO#) 0.70 K/mm3 0-0.8 EOSINOPHIL # (test code=EO#) 0.01 K/mm3 0.0-0.5 BASOPHIL # (test code=BA#) 0.01 K/mm3 0.0-0.2 NUCLEATED RBC # (test code=NRBC#) 0.00 K/mm3 0.0-0.1 MANUAL DIFF REQUIRED (test code=MDIFF) YES STAIN ACCEPTABILITY (test code=STN ACCEPTABLE) TOTAL CELLS COUNTED (test code=TCC) #CELLS SEGMENTED NEUTROPHILS (test code=SEG) % 39-69 LYMPHOCYTE (test code=LYMPH) % 25-55 MONOCYTE (test code=MON) % 0-10 EOSINOPHIL (test code=EOS) % 0.0-5.0 CABOT RINGS (test code=CAB) MORPHOLOGY COMMENT (test code=MOC) PLATELET ESTIMATE (test code=PLTEST) PLATELET MORPHOLOGY (test code=PLTMORPH) CBC W/MANUAL [id number] 07:29:00* Test Item Value Reference Range Comments WHITE BLOOD CELL (test code=WBC) 11.8 K/mm3 4.5-12.5 RED BLOOD CELL (test code=RBC) 3.98 mill/mm3 3.7-5.2 HEMOGLOBIN (test code=HGB) 10.1 gram/dL 11.5-15.5 HEMATOCRIT (test code=HCT) 34.7 % 36.0-46.0 MEAN CELL VOLUME (test code=MCV) 87.2 fL 80-98 MEAN CELL HGB (test code=MCH) 25.4 picogram 27.0-33.0 MEAN CELL HGB CONCETRATION (test code=MCHC) 29.1 gram/dL 33.0-36.0 RED CELL DISTRIBUTION WIDTH (test code=RDW) 21.1 % 11.6-16.2 RED CELL DISTRIBUTION WIDTH SD (test code=RDW-SD) 66.4 fL 37.0-51.0 PLATELET COUNT (test code=PLT) 99 K/mm3 150-450 IMMATURE GRANULOCYTE % (test code=IG%) 0.6 % 0.0-5.0 NUCLEATED RBC % (test code=NRBC%) 0.0 % 0-0 NEUTROPHIL # (test code=NT#) 9.80 K/mm3 1.8-7.7 IMMATURE GRANULOCYTE # (test code=IG#) 0.07 x10 3/uL 0-0.03 LYMPHOCYTE # (test code=LY#) 1.25 K/mm3 1.0-5.0 MONOCYTE # (test code=MO#) 0.70 K/mm3 0-0.8 EOSINOPHIL # (test code=EO#) 0.01 K/mm3 0.0-0.5 BASOPHIL # (test code=BA#) 0.01 K/mm3 0.0-0.2 NUCLEATED RBC # (test code=NRBC#) 0.00 K/mm3 0.0-0.1 MANUAL DIFF REQUIRED (test code=MDIFF) YES STAIN ACCEPTABILITY (test code=STN ACCEPTABLE) TOTAL CELLS COUNTED (test code=TCC) #CELLS SEGMENTED NEUTROPHILS (test code=SEG) % 39-69 LYMPHOCYTE (test code=LYMPH) % 25-55 MONOCYTE (test code=MON) % 0-10 EOSINOPHIL (test code=EOS) % 0.0-5.0 CABOT RINGS (test code=CAB) MORPHOLOGY COMMENT (test code=MOC) PLATELET ESTIMATE (test code=PLTEST) PLATELET MORPHOLOGY (test code=PLTMORPH) CBC W/MANUAL [id number] 07:29:00* Test Item Value Reference Range Comments WHITE BLOOD CELL (test code=WBC) 11.8 K/mm3 4.5-12.5 RED BLOOD CELL (test code=RBC) 3.98 mill/mm3 3.7-5.2 HEMOGLOBIN (test code=HGB) 10.1 gram/dL 11.5-15.5 HEMATOCRIT (test code=HCT) 34.7 % 36.0-46.0 MEAN CELL VOLUME (test code=MCV) 87.2 fL 80-98 MEAN CELL HGB (test code=MCH) 25.4 picogram 27.0-33.0 MEAN CELL HGB CONCETRATION (test code=MCHC) 29.1 gram/dL 33.0-36.0 RED CELL DISTRIBUTION WIDTH (test code=RDW) 21.1 % 11.6-16.2 RED CELL DISTRIBUTION WIDTH SD (test code=RDW-SD) 66.4 fL 37.0-51.0 PLATELET COUNT (test code=PLT) 99 K/mm3 150-450 IMMATURE GRANULOCYTE % (test code=IG%) 0.6 % 0.0-5.0 NUCLEATED RBC % (test code=NRBC%) 0.0 % 0-0 NEUTROPHIL # (test code=NT#) 9.80 K/mm3 1.8-7.7 IMMATURE GRANULOCYTE # (test code=IG#) 0.07 x10 3/uL 0-0.03 LYMPHOCYTE # (test code=LY#) 1.25 K/mm3 1.0-5.0 MONOCYTE # (test code=MO#) 0.70 K/mm3 0-0.8 EOSINOPHIL # (test code=EO#) 0.01 K/mm3 0.0-0.5 BASOPHIL # (test code=BA#) 0.01 K/mm3 0.0-0.2 NUCLEATED RBC # (test code=NRBC#) 0.00 K/mm3 0.0-0.1 MANUAL DIFF REQUIRED (test code=MDIFF) YES STAIN ACCEPTABILITY (test code=STN ACCEPTABLE) TOTAL CELLS COUNTED (test code=TCC) #CELLS SEGMENTED NEUTROPHILS (test code=SEG) % 39-69 LYMPHOCYTE (test code=LYMPH) % 25-55 MONOCYTE (test code=MON) % 0-10 EOSINOPHIL (test code=EOS) % 0.0-5.0 MORPHOLOGY COMMENT (test code=MOC) PLATELET ESTIMATE (test code=PLTEST) PLATELET MORPHOLOGY (test code=PLTMORPH) CBC W/MANUAL [id number] 07:29:00* Test Item Value Reference Range Comments WHITE BLOOD CELL (test code=WBC) 11.8 K/mm3 4.5-12.5 RED BLOOD CELL (test code=RBC) 3.98 mill/mm3 3.7-5.2 HEMOGLOBIN (test code=HGB) 10.1 gram/dL 11.5-15.5 HEMATOCRIT (test code=HCT) 34.7 % 36.0-46.0 MEAN CELL VOLUME (test code=MCV) 87.2 fL 80-98 MEAN CELL HGB (test code=MCH) 25.4 picogram 27.0-33.0 MEAN CELL HGB CONCETRATION (test code=MCHC) 29.1 gram/dL 33.0-36.0 RED CELL DISTRIBUTION WIDTH (test code=RDW) 21.1 % 11.6-16.2 RED CELL DISTRIBUTION WIDTH SD (test code=RDW-SD) 66.4 fL 37.0-51.0 PLATELET COUNT (test code=PLT) 99 K/mm3 150-450 IMMATURE GRANULOCYTE % (test code=IG%) 0.6 % 0.0-5.0 NUCLEATED RBC % (test code=NRBC%) 0.0 % 0-0 NEUTROPHIL # (test code=NT#) 9.80 K/mm3 1.8-7.7 IMMATURE GRANULOCYTE # (test code=IG#) 0.07 x10 3/uL 0-0.03 LYMPHOCYTE # (test code=LY#) 1.25 K/mm3 1.0-5.0 MONOCYTE # (test code=MO#) 0.70 K/mm3 0-0.8 EOSINOPHIL # (test code=EO#) 0.01 K/mm3 0.0-0.5 BASOPHIL # (test code=BA#) 0.01 K/mm3 0.0-0.2 NUCLEATED RBC # (test code=NRBC#) 0.00 K/mm3 0.0-0.1 MANUAL DIFF REQUIRED (test code=MDIFF) YES STAIN ACCEPTABILITY (test code=STN ACCEPTABLE) TOTAL CELLS COUNTED (test code=TCC) #CELLS SEGMENTED NEUTROPHILS (test code=SEG) % 39-69 LYMPHOCYTE (test code=LYMPH) % 25-55 MONOCYTE (test code=MON) % 0-10 MORPHOLOGY COMMENT (test code=MOC) PLATELET ESTIMATE (test code=PLTEST) PLATELET MORPHOLOGY (test code=PLTMORPH) CBC W/MANUAL [id number] 07:29:00* Test Item Value Reference Range Comments WHITE BLOOD CELL (test code=WBC) 11.8 K/mm3 4.5-12.5 RED BLOOD CELL (test code=RBC) 3.98 mill/mm3 3.7-5.2 HEMOGLOBIN (test code=HGB) 10.1 gram/dL 11.5-15.5 HEMATOCRIT (test code=HCT) 34.7 % 36.0-46.0 MEAN CELL VOLUME (test code=MCV) 87.2 fL 80-98 MEAN CELL HGB (test code=MCH) 25.4 picogram 27.0-33.0 MEAN CELL HGB CONCETRATION (test code=MCHC) 29.1 gram/dL 33.0-36.0 RED CELL DISTRIBUTION WIDTH (test code=RDW) 21.1 % 11.6-16.2 RED CELL DISTRIBUTION WIDTH SD (test code=RDW-SD) 66.4 fL 37.0-51.0 PLATELET COUNT (test code=PLT) 99 K/mm3 150-450 IMMATURE GRANULOCYTE % (test code=IG%) 0.6 % 0.0-5.0 NUCLEATED RBC % (test code=NRBC%) 0.0 % 0-0 NEUTROPHIL # (test code=NT#) 9.80 K/mm3 1.8-7.7 IMMATURE GRANULOCYTE # (test code=IG#) 0.07 x10 3/uL 0-0.03 LYMPHOCYTE # (test code=LY#) 1.25 K/mm3 1.0-5.0 MONOCYTE # (test code=MO#) 0.70 K/mm3 0-0.8 EOSINOPHIL # (test code=EO#) 0.01 K/mm3 0.0-0.5 BASOPHIL # (test code=BA#) 0.01 K/mm3 0.0-0.2 NUCLEATED RBC # (test code=NRBC#) 0.00 K/mm3 0.0-0.1 MANUAL DIFF REQUIRED (test code=MDIFF) YES STAIN ACCEPTABILITY (test code=STN ACCEPTABLE) TOTAL CELLS COUNTED (test code=TCC) #CELLS SEGMENTED NEUTROPHILS (test code=SEG) % 39-69 LYMPHOCYTE (test code=LYMPH) % 25-55 MONOCYTE (test code=MON) % 0-10 EOSINOPHIL (test code=EOS) % 0.0-5.0 CABOT RINGS (test code=CAB) MORPHOLOGY COMMENT (test code=MOC) PLATELET ESTIMATE (test code=PLTEST) PLATELET MORPHOLOGY (test code=PLTMORPH) - US ABDOMEN [id number] 10:43:00 Name: SIOBHAN BARBOSA [facility] : 1965 Age/S: 53 / F [address] Unit #: [id number] Loc: [place] [address] Phys: Charito Leroy MD Acct: [id number] Dis Date: Status: DIS IN PHONE #: [phone] Exam Date: 10/06/2018 1620 FAX #: [phone] Reason: RULE OUT ABSCESS Report Has Been Amended EXAMS: CPT CODE: [id number] US ABDOMEN LTD [id number] Addendum - 10/07/2018 SIGNED 04/18/2019 ADDENDUM: [id number] US/USABDLTD IMPRESSION CORRECTION SHOULD SAY THE LEFT FLANK REGION at 1337 Reported and signed by: Jameel Alvarez M.D. Transcribed: 10/07/2018 (1042) [email or web address] Report EXAM: Ultrasound abdomen, limited; INFORMATION: Left perinephric abscess; status post percutaneous drainage with partial evacuation. IMPRESSION: Limited ultrasound of the right flank region shows a large irregular and partially loculated fluid collection consistent with residual abscess. at 1945 Reported and signed by: Jameel Alvarez M.D. CC: Charito Leroy MD Technologist: WILLIAM MARIE RT(R),RDHI Trngab Date/Time: 10/06/2018 (1944) [email or web address] Orig Print D/T: S: 10/06/2018 (1947) Probe: PAGE 1 Signed Report CBC W/MANUAL [id number] 08:29:00* Test Item Value Reference Range Comments WHITE BLOOD CELL (test code=WBC) 10.7 K/mm3 4.5-12.5 RED BLOOD CELL (test code=RBC) 3.85 mill/mm3 3.7-5.2 HEMOGLOBIN (test code=HGB) 9.7 gram/dL 11.5-15.5 HEMATOCRIT (test code=HCT) 33.5 % 36.0-46.0 MEAN CELL VOLUME (test code=MCV) 87.0 fL 80-98 MEAN CELL HGB (test code=MCH) 25.2 picogram 27.0-33.0 MEAN CELL HGB CONCETRATION (test code=MCHC) 29.0 gram/dL 33.0-36.0 RED CELL DISTRIBUTION WIDTH (test code=RDW) 21.1 % 11.6-16.2 RED CELL DISTRIBUTION WIDTH SD (test code=RDW-SD) 66.5 fL 37.0-51.0 PLATELET COUNT (test code=PLT) 85 K/mm3 150-450 MEAN PLATELET VOLUME (test code=MPV) 13.1 fL 6.7-11.0 IMMATURE GRANULOCYTE % (test code=IG%) 0.5 % 0.0-5.0 NUCLEATED RBC % (test code=NRBC%) 0.0 % 0-0 NEUTROPHIL # (test code=NT#) 8.48 K/mm3 1.8-7.7 IMMATURE GRANULOCYTE # (test code=IG#) 0.05 x10 3/uL 0-0.03 LYMPHOCYTE # (test code=LY#) 1.36 K/mm3 1.0-5.0 MONOCYTE # (test code=MO#) 0.76 K/mm3 0-0.8 EOSINOPHIL # (test code=EO#) 0.00 K/mm3 0.0-0.5 BASOPHIL # (test code=BA#) 0.02 K/mm3 0.0-0.2 NUCLEATED RBC # (test code=NRBC#) 0.00 K/mm3 0.0-0.1 MANUAL DIFF REQUIRED (test code=MDIFF) YES STAIN ACCEPTABILITY (test code=STN ACCEPTABLE) STAIN ACCEPTABLE TOTAL CELLS COUNTED (test code=TCC) 100 #CELLS SEGMENTED NEUTROPHILS (test code=SEG) 79 % 39-69 LYMPHOCYTE (test code=LYMPH) 16 % 25-55 MONOCYTE (test code=MON) 5 % 0-10 MORPHOLOGY COMMENT (test code=MOC) NORMAL PLATELET ESTIMATE (test code=PLTEST) DECREASED PLATELET MORPHOLOGY (test code=PLTMORPH) SIZE VARIABLE BASIC METABOLIC [id number] 08:21:00* Test Item Value Reference Range Comments SODIUM (test code=NA) 144 mmol/L 136-145 POTASSIUM (test code=K) 5.2 mmol/L 3.5-5.1 CHLORIDE (test code=CL) 113.0 mmol/L 98-107 CARBON DIOXIDE (test code=CO2) 25.0 mmol/L 21-32 ANION GAP (test code=GAP) 11.2 10-20 GLUCOSE (test code=GLU) 99 mg/dL 74-106 BLOOD UREA NITROGEN (test code=BUN) 45 mg/dL 7-18 GLOMERULAR FILTRATION RATE (test code=GFR) 31 mL/min >=60 Estimated GFR by using Modified MDRD formula.Chronic kidney disease is defined as either kidney damageor GFR <60 mL/min/1.73 m2 for >3 months. CREATININE (test code=CREAT) 1.70 mg/dL 0.55-1.02 Note change in reference range due to change in reagent. BUN/CREATININE RATIO (test code=BUN/CREA) 26.5 10-20 CALCIUM (test code=CA) 9.6 mg/dL 8.5-10.1 HAS A LINE, COME BACK AFTER 7 PER RN [email or web address].[email or web address] 10/07/[id number] W/MANUAL DIFF 2018-10-07 07:56:00* Test Item Value Reference Range Comments WHITE BLOOD CELL (test code=WBC) 10.7 K/mm3 4.5-12.5 RED BLOOD CELL (test code=RBC) 3.85 mill/mm3 3.7-5.2 HEMOGLOBIN (test code=HGB) 9.7 gram/dL 11.5-15.5 HEMATOCRIT (test code=HCT) 33.5 % 36.0-46.0 MEAN CELL VOLUME (test code=MCV) 87.0 fL 80-98 MEAN CELL HGB (test code=MCH) 25.2 picogram 27.0-33.0 MEAN CELL HGB CONCETRATION (test code=MCHC) 29.0 gram/dL 33.0-36.0 RED CELL DISTRIBUTION WIDTH (test code=RDW) 21.1 % 11.6-16.2 RED CELL DISTRIBUTION WIDTH SD (test code=RDW-SD) 66.5 fL 37.0-51.0 PLATELET COUNT (test code=PLT) 85 K/mm3 150-450 MEAN PLATELET VOLUME (test code=MPV) 13.1 fL 6.7-11.0 IMMATURE GRANULOCYTE % (test code=IG%) 0.5 % 0.0-5.0 NUCLEATED RBC % (test code=NRBC%) 0.0 % 0-0 NEUTROPHIL # (test code=NT#) 8.48 K/mm3 1.8-7.7 IMMATURE GRANULOCYTE # (test code=IG#) 0.05 x10 3/uL 0-0.03 LYMPHOCYTE # (test code=LY#) 1.36 K/mm3 1.0-5.0 MONOCYTE # (test code=MO#) 0.76 K/mm3 0-0.8 EOSINOPHIL # (test code=EO#) 0.00 K/mm3 0.0-0.5 BASOPHIL # (test code=BA#) 0.02 K/mm3 0.0-0.2 NUCLEATED RBC # (test code=NRBC#) 0.00 K/mm3 0.0-0.1 MANUAL DIFF REQUIRED (test code=MDIFF) YES STAIN ACCEPTABILITY (test code=STN ACCEPTABLE) TOTAL CELLS COUNTED (test code=TCC) #CELLS SEGMENTED NEUTROPHILS (test code=SEG) % 39-69 LYMPHOCYTE (test code=LYMPH) % 25-55 MONOCYTE (test code=MON) % 0-10 EOSINOPHIL (test code=EOS) % 0.0-5.0 CABOT RINGS (test code=CAB) MORPHOLOGY COMMENT (test code=MOC) PLATELET ESTIMATE (test code=PLTEST) PLATELET MORPHOLOGY (test code=PLTMORPH) CBC W/MANUAL [id number] 07:56:00* Test Item Value Reference Range Comments WHITE BLOOD CELL (test code=WBC) 10.7 K/mm3 4.5-12.5 RED BLOOD CELL (test code=RBC) 3.85 mill/mm3 3.7-5.2 HEMOGLOBIN (test code=HGB) 9.7 gram/dL 11.5-15.5 HEMATOCRIT (test code=HCT) 33.5 % 36.0-46.0 MEAN CELL VOLUME (test code=MCV) 87.0 fL 80-98 MEAN CELL HGB (test code=MCH) 25.2 picogram 27.0-33.0 MEAN CELL HGB CONCETRATION (test code=MCHC) 29.0 gram/dL 33.0-36.0 RED CELL DISTRIBUTION WIDTH (test code=RDW) 21.1 % 11.6-16.2 RED CELL DISTRIBUTION WIDTH SD (test code=RDW-SD) 66.5 fL 37.0-51.0 PLATELET COUNT (test code=PLT) 85 K/mm3 150-450 MEAN PLATELET VOLUME (test code=MPV) 13.1 fL 6.7-11.0 IMMATURE GRANULOCYTE % (test code=IG%) 0.5 % 0.0-5.0 NUCLEATED RBC % (test code=NRBC%) 0.0 % 0-0 NEUTROPHIL # (test code=NT#) 8.48 K/mm3 1.8-7.7 IMMATURE GRANULOCYTE # (test code=IG#) 0.05 x10 3/uL 0-0.03 LYMPHOCYTE # (test code=LY#) 1.36 K/mm3 1.0-5.0 MONOCYTE # (test code=MO#) 0.76 K/mm3 0-0.8 EOSINOPHIL # (test code=EO#) 0.00 K/mm3 0.0-0.5 BASOPHIL # (test code=BA#) 0.02 K/mm3 0.0-0.2 NUCLEATED RBC # (test code=NRBC#) 0.00 K/mm3 0.0-0.1 MANUAL DIFF REQUIRED (test code=MDIFF) YES STAIN ACCEPTABILITY (test code=STN ACCEPTABLE) TOTAL CELLS COUNTED (test code=TCC) #CELLS SEGMENTED NEUTROPHILS (test code=SEG) % 39-69 LYMPHOCYTE (test code=LYMPH) % 25-55 MONOCYTE (test code=MON) % 0-10 EOSINOPHIL (test code=EOS) % 0.0-5.0 MORPHOLOGY COMMENT (test code=MOC) PLATELET ESTIMATE (test code=PLTEST) PLATELET MORPHOLOGY (test code=PLTMORPH) CBC W/MANUAL [id number] 07:56:00* Test Item Value Reference Range Comments WHITE BLOOD CELL (test code=WBC) 10.7 K/mm3 4.5-12.5 RED BLOOD CELL (test code=RBC) 3.85 mill/mm3 3.7-5.2 HEMOGLOBIN (test code=HGB) 9.7 gram/dL 11.5-15.5 HEMATOCRIT (test code=HCT) 33.5 % 36.0-46.0 MEAN CELL VOLUME (test code=MCV) 87.0 fL 80-98 MEAN CELL HGB (test code=MCH) 25.2 picogram 27.0-33.0 MEAN CELL HGB CONCETRATION (test code=MCHC) 29.0 gram/dL 33.0-36.0 RED CELL DISTRIBUTION WIDTH (test code=RDW) 21.1 % 11.6-16.2 RED CELL DISTRIBUTION WIDTH SD (test code=RDW-SD) 66.5 fL 37.0-51.0 PLATELET COUNT (test code=PLT) 85 K/mm3 150-450 MEAN PLATELET VOLUME (test code=MPV) 13.1 fL 6.7-11.0 IMMATURE GRANULOCYTE % (test code=IG%) 0.5 % 0.0-5.0 NUCLEATED RBC % (test code=NRBC%) 0.0 % 0-0 NEUTROPHIL # (test code=NT#) 8.48 K/mm3 1.8-7.7 IMMATURE GRANULOCYTE # (test code=IG#) 0.05 x10 3/uL 0-0.03 LYMPHOCYTE # (test code=LY#) 1.36 K/mm3 1.0-5.0 MONOCYTE # (test code=MO#) 0.76 K/mm3 0-0.8 EOSINOPHIL # (test code=EO#) 0.00 K/mm3 0.0-0.5 BASOPHIL # (test code=BA#) 0.02 K/mm3 0.0-0.2 NUCLEATED RBC # (test code=NRBC#) 0.00 K/mm3 0.0-0.1 MANUAL DIFF REQUIRED (test code=MDIFF) YES STAIN ACCEPTABILITY (test code=STN ACCEPTABLE) TOTAL CELLS COUNTED (test code=TCC) #CELLS SEGMENTED NEUTROPHILS (test code=SEG) % 39-69 LYMPHOCYTE (test code=LYMPH) % 25-55 MONOCYTE (test code=MON) % 0-10 MORPHOLOGY COMMENT (test code=MOC) PLATELET ESTIMATE (test code=PLTEST) PLATELET MORPHOLOGY (test code=PLTMORPH) CBC W/MANUAL [id number] 07:55:00* Test Item Value Reference Range Comments WHITE BLOOD CELL (test code=WBC) 10.7 K/mm3 4.5-12.5 RED BLOOD CELL (test code=RBC) 3.85 mill/mm3 3.7-5.2 HEMOGLOBIN (test code=HGB) 9.7 gram/dL 11.5-15.5 HEMATOCRIT (test code=HCT) 33.5 % 36.0-46.0 MEAN CELL VOLUME (test code=MCV) 87.0 fL 80-98 MEAN CELL HGB (test code=MCH) 25.2 picogram 27.0-33.0 MEAN CELL HGB CONCETRATION (test code=MCHC) 29.0 gram/dL 33.0-36.0 RED CELL DISTRIBUTION WIDTH (test code=RDW) 21.1 % 11.6-16.2 RED CELL DISTRIBUTION WIDTH SD (test code=RDW-SD) 66.5 fL 37.0-51.0 PLATELET COUNT (test code=PLT) 85 K/mm3 150-450 MEAN PLATELET VOLUME (test code=MPV) 13.1 fL 6.7-11.0 IMMATURE GRANULOCYTE % (test code=IG%) 0.5 % 0.0-5.0 NUCLEATED RBC % (test code=NRBC%) 0.0 % 0-0 NEUTROPHIL # (test code=NT#) 8.48 K/mm3 1.8-7.7 IMMATURE GRANULOCYTE # (test code=IG#) 0.05 x10 3/uL 0-0.03 LYMPHOCYTE # (test code=LY#) 1.36 K/mm3 1.0-5.0 MONOCYTE # (test code=MO#) 0.76 K/mm3 0-0.8 EOSINOPHIL # (test code=EO#) 0.00 K/mm3 0.0-0.5 BASOPHIL # (test code=BA#) 0.02 K/mm3 0.0-0.2 NUCLEATED RBC # (test code=NRBC#) 0.00 K/mm3 0.0-0.1 MANUAL DIFF REQUIRED (test code=MDIFF) YES STAIN ACCEPTABILITY (test code=STN ACCEPTABLE) TOTAL CELLS COUNTED (test code=TCC) #CELLS SEGMENTED NEUTROPHILS (test code=SEG) % 39-69 LYMPHOCYTE (test code=LYMPH) % 25-55 MONOCYTE (test code=MON) % 0-10 EOSINOPHIL (test code=EOS) % 0.0-5.0 CABOT RINGS (test code=CAB) MORPHOLOGY COMMENT (test code=MOC) PLATELET ESTIMATE (test code=PLTEST) PLATELET MORPHOLOGY (test code=PLTMORPH) CBC W/MANUAL [id number] 07:55:00* Test Item Value Reference Range Comments WHITE BLOOD CELL (test code=WBC) 10.7 K/mm3 4.5-12.5 RED BLOOD CELL (test code=RBC) 3.85 mill/mm3 3.7-5.2 HEMOGLOBIN (test code=HGB) 9.7 gram/dL 11.5-15.5 HEMATOCRIT (test code=HCT) 33.5 % 36.0-46.0 MEAN CELL VOLUME (test code=MCV) 87.0 fL 80-98 MEAN CELL HGB (test code=MCH) 25.2 picogram 27.0-33.0 MEAN CELL HGB CONCETRATION (test code=MCHC) 29.0 gram/dL 33.0-36.0 RED CELL DISTRIBUTION WIDTH (test code=RDW) 21.1 % 11.6-16.2 RED CELL DISTRIBUTION WIDTH SD (test code=RDW-SD) 66.5 fL 37.0-51.0 PLATELET COUNT (test code=PLT) 85 K/mm3 150-450 MEAN PLATELET VOLUME (test code=MPV) 13.1 fL 6.7-11.0 IMMATURE GRANULOCYTE % (test code=IG%) 0.5 % 0.0-5.0 NUCLEATED RBC % (test code=NRBC%) 0.0 % 0-0 NEUTROPHIL # (test code=NT#) 8.48 K/mm3 1.8-7.7 IMMATURE GRANULOCYTE # (test code=IG#) 0.05 x10 3/uL 0-0.03 LYMPHOCYTE # (test code=LY#) 1.36 K/mm3 1.0-5.0 MONOCYTE # (test code=MO#) 0.76 K/mm3 0-0.8 EOSINOPHIL # (test code=EO#) 0.00 K/mm3 0.0-0.5 BASOPHIL # (test code=BA#) 0.02 K/mm3 0.0-0.2 NUCLEATED RBC # (test code=NRBC#) 0.00 K/mm3 0.0-0.1 MANUAL DIFF REQUIRED (test code=MDIFF) YES STAIN ACCEPTABILITY (test code=STN ACCEPTABLE) TOTAL CELLS COUNTED (test code=TCC) #CELLS SEGMENTED NEUTROPHILS (test code=SEG) % 39-69 LYMPHOCYTE (test code=LYMPH) % 25-55 MONOCYTE (test code=MON) % 0-10 EOSINOPHIL (test code=EOS) % 0.0-5.0 CABOT RINGS (test code=CAB) MORPHOLOGY COMMENT (test code=MOC) PLATELET ESTIMATE (test code=PLTEST) PLATELET MORPHOLOGY (test code=PLTMORPH) - US ABDOMEN [id number] 19:45:00 Name: SIOBHAN BARBOSA [facility] : 1965 Age/S: 53 / F [address] [facility] Unit #: [id number] Loc: [place] [address] Phys: Charito Leroy MD Acct: [id number] Dis Date: Status: ADM IN PHONE #: [phone] Exam Date: 10/06/2018 1622 FAX #: [phone] Reason: RULE OUT ABSCESS EXAMS: CPT CODE: [id number] US ABDOMEN LTD [id number] EXAM: Ultrasound abdomen, limited; INFORMATION: Left perinephric abscess; status post percutaneous drainage with partial evacuation. IMPRESSION: Limited ultrasound of the right flank region shows a large irregular and partially loculated fluid collection consistent with residual abscess. at 1945 Reported and signed by: Jameel Alvarez M.D. CC: Charito Leroy MD Technologist: WILLIAM MARIE(R),[facility] [place] Date/Time: 10/06/2018 (1944) [email or web address] Orig Print D/T: S: 10/06/2018 (1947) Probe: PAGE 1 Signed Report HEPARIN INDUCED [id number] 18:29:00* Test Item Value Reference Range Comments HEPARIN INDUCED THROMBOCYTOPEN (test code=HIT) NEGATIVE NEGATIVE CBC W/AUTO [id number] 12:08:00* Test Item Value Reference Range Comments WHITE BLOOD CELL (test code=WBC) 7.1 K/mm3 4.5-12.5 RED BLOOD CELL (test code=RBC) 3.31 mill/mm3 3.7-5.2 HEMOGLOBIN (test code=HGB) 8.4 gram/dL 11.5-15.5 HEMATOCRIT (test code=HCT) 29.5 % 36.0-46.0 MEAN CELL VOLUME (test code=MCV) 89.1 fL 80-98 MEAN CELL HGB (test code=MCH) 25.4 picogram 27.0-33.0 MEAN CELL HGB CONCETRATION (test code=MCHC) 28.5 gram/dL 33.0-36.0 RED CELL DISTRIBUTION WIDTH (test code=RDW) 22.5 % 11.6-16.2 RED CELL DISTRIBUTION WIDTH SD (test code=RDW-SD) 72.6 fL 37.0-51.0 PLATELET COUNT (test code=PLT) 90 K/mm3 150-450 MEAN PLATELET VOLUME (test code=MPV) 12.7 fL 6.7-11.0 NEUTROPHIL % (test code=NT%) 75.0 % 39.0-69.0 IMMATURE GRANULOCYTE % (test code=IG%) 0.3 % 0.0-5.0 LYMPHOCYTE % (test code=LY%) 13.9 % 25.0-55.0 MONOCYTE % (test code=MO%) 8.3 % 0.0-10.0 EOSINOPHIL % (test code=EO%) 2.4 % 0.0-5.0 BASOPHIL % (test code=BA%) 0.1 % 0.0-1.0 NUCLEATED RBC % (test code=NRBC%) 0.0 % 0-0 NEUTROPHIL # (test code=NT#) 5.36 K/mm3 1.8-7.7 IMMATURE GRANULOCYTE # (test code=IG#) 0.02 x10 3/uL 0-0.03 LYMPHOCYTE # (test code=LY#) 0.99 K/mm3 1.0-5.0 MONOCYTE # (test code=MO#) 0.59 K/mm3 0-0.8 EOSINOPHIL # (test code=EO#) 0.17 K/mm3 0.0-0.5 BASOPHIL # (test code=BA#) 0.01 K/mm3 0.0-0.2 NUCLEATED RBC # (test code=NRBC#) 0.00 K/mm3 0.0-0.1 MANUAL DIFF REQUIRED (test code=MDIFF) NO, ONLY SCAN NEEDED DIFFERENTIAL [id number] 12:08:00* Test Item Value Reference Range Comments STAIN ACCEPTABILITY (test code=STN ACCEPTABLE) STAIN ACCEPTABLE MORPHOLOGY COMMENT (test code=MOC) NORMAL PLATELET ESTIMATE (test code=PLTEST) DECREASED PLATELET MORPHOLOGY (test code=PLTMORPH) CBC W/AUTO [id number] 12:08:00* Test Item Value Reference Range Comments WHITE BLOOD CELL (test code=WBC) 7.1 K/mm3 4.5-12.5 RED BLOOD CELL (test code=RBC) 3.31 mill/mm3 3.7-5.2 HEMOGLOBIN (test code=HGB) 8.4 gram/dL 11.5-15.5 HEMATOCRIT (test code=HCT) 29.5 % 36.0-46.0 MEAN CELL VOLUME (test code=MCV) 89.1 fL 80-98 MEAN CELL HGB (test code=MCH) 25.4 picogram 27.0-33.0 MEAN CELL HGB CONCETRATION (test code=MCHC) 28.5 gram/dL 33.0-36.0 RED CELL DISTRIBUTION WIDTH (test code=RDW) 22.5 % 11.6-16.2 RED CELL DISTRIBUTION WIDTH SD (test code=RDW-SD) 72.6 fL 37.0-51.0 PLATELET COUNT (test code=PLT) 90 K/mm3 150-450 MEAN PLATELET VOLUME (test code=MPV) 12.7 fL 6.7-11.0 NEUTROPHIL % (test code=NT%) 75.0 % 39.0-69.0 IMMATURE GRANULOCYTE % (test code=IG%) 0.3 % 0.0-5.0 LYMPHOCYTE % (test code=LY%) 13.9 % 25.0-55.0 MONOCYTE % (test code=MO%) 8.3 % 0.0-10.0 EOSINOPHIL % (test code=EO%) 2.4 % 0.0-5.0 BASOPHIL % (test code=BA%) 0.1 % 0.0-1.0 NUCLEATED RBC % (test code=NRBC%) 0.0 % 0-0 NEUTROPHIL # (test code=NT#) 5.36 K/mm3 1.8-7.7 IMMATURE GRANULOCYTE # (test code=IG#) 0.02 x10 3/uL 0-0.03 LYMPHOCYTE # (test code=LY#) 0.99 K/mm3 1.0-5.0 MONOCYTE # (test code=MO#) 0.59 K/mm3 0-0.8 EOSINOPHIL # (test code=EO#) 0.17 K/mm3 0.0-0.5 BASOPHIL # (test code=BA#) 0.01 K/mm3 0.0-0.2 NUCLEATED RBC # (test code=NRBC#) 0.00 K/mm3 0.0-0.1 MANUAL DIFF REQUIRED (test code=MDIFF) NO, ONLY SCAN NEEDED DIFFERENTIAL [id number] 12:08:00* Test Item Value Reference Range Comments STAIN ACCEPTABILITY (test code=STN ACCEPTABLE) STAIN ACCEPTABLE MORPHOLOGY COMMENT (test code=MOC) NORMAL PLATELET ESTIMATE (test code=PLTEST) DECREASED PLATELET MORPHOLOGY (test code=PLTMORPH) NORMAL CBC W/AUTO [id number] 12:07:00* Test Item Value Reference Range Comments WHITE BLOOD CELL (test code=WBC) 7.1 K/mm3 4.5-12.5 RED BLOOD CELL (test code=RBC) 3.31 mill/mm3 3.7-5.2 HEMOGLOBIN (test code=HGB) 8.4 gram/dL 11.5-15.5 HEMATOCRIT (test code=HCT) 29.5 % 36.0-46.0 MEAN CELL VOLUME (test code=MCV) 89.1 fL 80-98 MEAN CELL HGB (test code=MCH) 25.4 picogram 27.0-33.0 MEAN CELL HGB CONCETRATION (test code=MCHC) 28.5 gram/dL 33.0-36.0 RED CELL DISTRIBUTION WIDTH (test code=RDW) 22.5 % 11.6-16.2 RED CELL DISTRIBUTION WIDTH SD (test code=RDW-SD) 72.6 fL 37.0-51.0 PLATELET COUNT (test code=PLT) 90 K/mm3 150-450 MEAN PLATELET VOLUME (test code=MPV) 12.7 fL 6.7-11.0 NEUTROPHIL % (test code=NT%) 75.0 % 39.0-69.0 IMMATURE GRANULOCYTE % (test code=IG%) 0.3 % 0.0-5.0 LYMPHOCYTE % (test code=LY%) 13.9 % 25.0-55.0 MONOCYTE % (test code=MO%) 8.3 % 0.0-10.0 EOSINOPHIL % (test code=EO%) 2.4 % 0.0-5.0 BASOPHIL % (test code=BA%) 0.1 % 0.0-1.0 NUCLEATED RBC % (test code=NRBC%) 0.0 % 0-0 NEUTROPHIL # (test code=NT#) 5.36 K/mm3 1.8-7.7 IMMATURE GRANULOCYTE # (test code=IG#) 0.02 x10 3/uL 0-0.03 LYMPHOCYTE # (test code=LY#) 0.99 K/mm3 1.0-5.0 MONOCYTE # (test code=MO#) 0.59 K/mm3 0-0.8 EOSINOPHIL # (test code=EO#) 0.17 K/mm3 0.0-0.5 BASOPHIL # (test code=BA#) 0.01 K/mm3 0.0-0.2 NUCLEATED RBC # (test code=NRBC#) 0.00 K/mm3 0.0-0.1 MANUAL DIFF REQUIRED (test code=MDIFF) NO, ONLY SCAN NEEDED DIFFERENTIAL [id number] 12:07:00* Test Item Value Reference Range Comments STAIN ACCEPTABILITY (test code=STN ACCEPTABLE) STAIN ACCEPTABLE MORPHOLOGY COMMENT (test code=MOC) PLATELET ESTIMATE (test code=PLTEST) DECREASED PLATELET MORPHOLOGY (test code=PLTMORPH) BASIC METABOLIC [id number] 05:35:00* Test Item Value Reference Range Comments SODIUM (test code=NA) 146 mmol/L 136-145 POTASSIUM (test code=K) 4.5 mmol/L 3.5-5.1 CHLORIDE (test code=CL) 115.0 mmol/L 98-107 CARBON DIOXIDE (test code=CO2) 26.0 mmol/L 21-32 ANION GAP (test code=GAP) 9.5 10-20 GLUCOSE (test code=GLU) 141 mg/dL 74-106 BLOOD UREA NITROGEN (test code=BUN) 35 mg/dL 7-18 GLOMERULAR FILTRATION RATE (test code=GFR) 36 mL/min >=60 Estimated GFR by using Modified MDRD formula.Chronic kidney disease is defined as either kidney damageor GFR <60 mL/min/1.73 m2 for >3 months. CREATININE (test code=CREAT) 1.50 mg/dL 0.55-1.02 Note change in reference range due to change in reagent. BUN/CREATININE RATIO (test code=BUN/CREA) 24.0 10-20 CALCIUM (test code=CA) 9.5 mg/dL 8.5-10.1 BASIC METABOLIC [id number] 05:26:00* Test Item Value Reference Range Comments SODIUM (test code=NA) 146 mmol/L 136-145 POTASSIUM (test code=K) 4.5 mmol/L 3.5-5.1 CHLORIDE (test code=CL) 115.0 mmol/L 98-107 CARBON DIOXIDE (test code=CO2) mmol/L 21-32 ANION GAP (test code=GAP) 10-20 GLUCOSE (test code=GLU) mg/dL 74-106 BLOOD UREA NITROGEN (test code=BUN) mg/dL 7-18 GLOMERULAR FILTRATION RATE (test code=GFR) mL/min >=60 CREATININE (test code=CREAT) mg/dL 0.55-1.02 BUN/CREATININE RATIO (test code=BUN/CREA) 10-20 CALCIUM (test code=CA) mg/dL 8.5-10.1 CBC W/AUTO [id number] 05:11:00* Test Item Value Reference Range Comments WHITE BLOOD CELL (test code=WBC) 7.1 K/mm3 4.5-12.5 RED BLOOD CELL (test code=RBC) 3.31 mill/mm3 3.7-5.2 HEMOGLOBIN (test code=HGB) 8.4 gram/dL 11.5-15.5 HEMATOCRIT (test code=HCT) 29.5 % 36.0-46.0 MEAN CELL VOLUME (test code=MCV) 89.1 fL 80-98 MEAN CELL HGB (test code=MCH) 25.4 picogram 27.0-33.0 MEAN CELL HGB CONCETRATION (test code=MCHC) 28.5 gram/dL 33.0-36.0 RED CELL DISTRIBUTION WIDTH (test code=RDW) 22.5 % 11.6-16.2 RED CELL DISTRIBUTION WIDTH SD (test code=RDW-SD) 72.6 fL 37.0-51.0 PLATELET COUNT (test code=PLT) 90 K/mm3 150-450 MEAN PLATELET VOLUME (test code=MPV) 12.7 fL 6.7-11.0 NEUTROPHIL % (test code=NT%) 75.0 % 39.0-69.0 IMMATURE GRANULOCYTE % (test code=IG%) 0.3 % 0.0-5.0 LYMPHOCYTE % (test code=LY%) 13.9 % 25.0-55.0 MONOCYTE % (test code=MO%) 8.3 % 0.0-10.0 EOSINOPHIL % (test code=EO%) 2.4 % 0.0-5.0 BASOPHIL % (test code=BA%) 0.1 % 0.0-1.0 NUCLEATED RBC % (test code=NRBC%) 0.0 % 0-0 NEUTROPHIL # (test code=NT#) 5.36 K/mm3 1.8-7.7 IMMATURE GRANULOCYTE # (test code=IG#) 0.02 x10 3/uL 0-0.03 LYMPHOCYTE # (test code=LY#) 0.99 K/mm3 1.0-5.0 MONOCYTE # (test code=MO#) 0.59 K/mm3 0-0.8 EOSINOPHIL # (test code=EO#) 0.17 K/mm3 0.0-0.5 BASOPHIL # (test code=BA#) 0.01 K/mm3 0.0-0.2 NUCLEATED RBC # (test code=NRBC#) 0.00 K/mm3 0.0-0.1 MANUAL DIFF REQUIRED (test code=MDIFF) NO, ONLY SCAN NEEDED DIFFERENTIAL [id number] 05:11:00* Test Item Value Reference Range Comments STAIN ACCEPTABILITY (test code=STN ACCEPTABLE) CABOT RINGS (test code=CAB) MORPHOLOGY COMMENT (test code=MOC) PLATELET ESTIMATE (test code=PLTEST) PLATELET MORPHOLOGY (test code=PLTMORPH) CBC W/AUTO [id number] 05:11:00* Test Item Value Reference Range Comments WHITE BLOOD CELL (test code=WBC) 7.1 K/mm3 4.5-12.5 RED BLOOD CELL (test code=RBC) 3.31 mill/mm3 3.7-5.2 HEMOGLOBIN (test code=HGB) 8.4 gram/dL 11.5-15.5 HEMATOCRIT (test code=HCT) 29.5 % 36.0-46.0 MEAN CELL VOLUME (test code=MCV) 89.1 fL 80-98 MEAN CELL HGB (test code=MCH) 25.4 picogram 27.0-33.0 MEAN CELL HGB CONCETRATION (test code=MCHC) 28.5 gram/dL 33.0-36.0 RED CELL DISTRIBUTION WIDTH (test code=RDW) 22.5 % 11.6-16.2 RED CELL DISTRIBUTION WIDTH SD (test code=RDW-SD) 72.6 fL 37.0-51.0 PLATELET COUNT (test code=PLT) 90 K/mm3 150-450 MEAN PLATELET VOLUME (test code=MPV) 12.7 fL 6.7-11.0 NEUTROPHIL % (test code=NT%) 75.0 % 39.0-69.0 IMMATURE GRANULOCYTE % (test code=IG%) 0.3 % 0.0-5.0 LYMPHOCYTE % (test code=LY%) 13.9 % 25.0-55.0 MONOCYTE % (test code=MO%) 8.3 % 0.0-10.0 EOSINOPHIL % (test code=EO%) 2.4 % 0.0-5.0 BASOPHIL % (test code=BA%) 0.1 % 0.0-1.0 NUCLEATED RBC % (test code=NRBC%) 0.0 % 0-0 NEUTROPHIL # (test code=NT#) 5.36 K/mm3 1.8-7.7 IMMATURE GRANULOCYTE # (test code=IG#) 0.02 x10 3/uL 0-0.03 LYMPHOCYTE # (test code=LY#) 0.99 K/mm3 1.0-5.0 MONOCYTE # (test code=MO#) 0.59 K/mm3 0-0.8 EOSINOPHIL # (test code=EO#) 0.17 K/mm3 0.0-0.5 BASOPHIL # (test code=BA#) 0.01 K/mm3 0.0-0.2 NUCLEATED RBC # (test code=NRBC#) 0.00 K/mm3 0.0-0.1 MANUAL DIFF REQUIRED (test code=MDIFF) NO, ONLY SCAN NEEDED DIFFERENTIAL [id number] 05:11:00* Test Item Value Reference Range Comments STAIN ACCEPTABILITY (test code=STN ACCEPTABLE) MORPHOLOGY COMMENT (test code=MOC) PLATELET ESTIMATE (test code=PLTEST) PLATELET MORPHOLOGY (test code=PLTMORPH) CBC W/AUTO [id number] 05:10:00* Test Item Value Reference Range Comments WHITE BLOOD CELL (test code=WBC) 7.1 K/mm3 4.5-12.5 RED BLOOD CELL (test code=RBC) 3.31 mill/mm3 3.7-5.2 HEMOGLOBIN (test code=HGB) 8.4 gram/dL 11.5-15.5 HEMATOCRIT (test code=HCT) 29.5 % 36.0-46.0 MEAN CELL VOLUME (test code=MCV) 89.1 fL 80-98 MEAN CELL HGB (test code=MCH) 25.4 picogram 27.0-33.0 MEAN CELL HGB CONCETRATION (test code=MCHC) 28.5 gram/dL 33.0-36.0 RED CELL DISTRIBUTION WIDTH (test code=RDW) 22.5 % 11.6-16.2 RED CELL DISTRIBUTION WIDTH SD (test code=RDW-SD) 72.6 fL 37.0-51.0 PLATELET COUNT (test code=PLT) 90 K/mm3 150-450 MEAN PLATELET VOLUME (test code=MPV) 12.7 fL 6.7-11.0 NEUTROPHIL % (test code=NT%) 75.0 % 39.0-69.0 IMMATURE GRANULOCYTE % (test code=IG%) 0.3 % 0.0-5.0 LYMPHOCYTE % (test code=LY%) 13.9 % 25.0-55.0 MONOCYTE % (test code=MO%) 8.3 % 0.0-10.0 EOSINOPHIL % (test code=EO%) 2.4 % 0.0-5.0 BASOPHIL % (test code=BA%) 0.1 % 0.0-1.0 NUCLEATED RBC % (test code=NRBC%) 0.0 % 0-0 NEUTROPHIL # (test code=NT#) 5.36 K/mm3 1.8-7.7 IMMATURE GRANULOCYTE # (test code=IG#) 0.02 x10 3/uL 0-0.03 LYMPHOCYTE # (test code=LY#) 0.99 K/mm3 1.0-5.0 MONOCYTE # (test code=MO#) 0.59 K/mm3 0-0.8 EOSINOPHIL # (test code=EO#) 0.17 K/mm3 0.0-0.5 BASOPHIL # (test code=BA#) 0.01 K/mm3 0.0-0.2 NUCLEATED RBC # (test code=NRBC#) 0.00 K/mm3 0.0-0.1 MANUAL DIFF REQUIRED (test code=MDIFF) NO, ONLY SCAN NEEDED DIFFERENTIAL [id number] 05:10:00* Test Item Value Reference Range Comments STAIN ACCEPTABILITY (test code=STN ACCEPTABLE) CABOT RINGS (test code=CAB) MORPHOLOGY COMMENT (test code=MOC) PLATELET ESTIMATE (test code=PLTEST) PLATELET MORPHOLOGY (test code=PLTMORPH) CBC W/AUTO [id number] 05:10:00* Test Item Value Reference Range Comments WHITE BLOOD CELL (test code=WBC) 7.1 K/mm3 4.5-12.5 RED BLOOD CELL (test code=RBC) 3.31 mill/mm3 3.7-5.2 HEMOGLOBIN (test code=HGB) 8.4 gram/dL 11.5-15.5 HEMATOCRIT (test code=HCT) 29.5 % 36.0-46.0 MEAN CELL VOLUME (test code=MCV) 89.1 fL 80-98 MEAN CELL HGB (test code=MCH) 25.4 picogram 27.0-33.0 MEAN CELL HGB CONCETRATION (test code=MCHC) 28.5 gram/dL 33.0-36.0 RED CELL DISTRIBUTION WIDTH (test code=RDW) 22.5 % 11.6-16.2 RED CELL DISTRIBUTION WIDTH SD (test code=RDW-SD) 72.6 fL 37.0-51.0 PLATELET COUNT (test code=PLT) 90 K/mm3 150-450 MEAN PLATELET VOLUME (test code=MPV) 12.7 fL 6.7-11.0 NEUTROPHIL % (test code=NT%) 75.0 % 39.0-69.0 IMMATURE GRANULOCYTE % (test code=IG%) 0.3 % 0.0-5.0 LYMPHOCYTE % (test code=LY%) 13.9 % 25.0-55.0 MONOCYTE % (test code=MO%) 8.3 % 0.0-10.0 EOSINOPHIL % (test code=EO%) 2.4 % 0.0-5.0 BASOPHIL % (test code=BA%) 0.1 % 0.0-1.0 NUCLEATED RBC % (test code=NRBC%) 0.0 % 0-0 NEUTROPHIL # (test code=NT#) 5.36 K/mm3 1.8-7.7 IMMATURE GRANULOCYTE # (test code=IG#) 0.02 x10 3/uL 0-0.03 LYMPHOCYTE # (test code=LY#) 0.99 K/mm3 1.0-5.0 MONOCYTE # (test code=MO#) 0.59 K/mm3 0-0.8 EOSINOPHIL # (test code=EO#) 0.17 K/mm3 0.0-0.5 BASOPHIL # (test code=BA#) 0.01 K/mm3 0.0-0.2 NUCLEATED RBC # (test code=NRBC#) 0.00 K/mm3 0.0-0.1 MANUAL DIFF REQUIRED (test code=MDIFF) NO, ONLY SCAN NEEDED DIFFERENTIAL [id number] 05:10:00* Test Item Value Reference Range Comments STAIN ACCEPTABILITY (test code=STN ACCEPTABLE) CABOT RINGS (test code=CAB) MORPHOLOGY COMMENT (test code=MOC) PLATELET ESTIMATE (test code=PLTEST) PLATELET MORPHOLOGY (test code=PLTMORPH) - XR ABSCESS/FIST/[id number] 13:41:00 FAX: Charito Lowe MD [phone] [place]: St: ADM Name: SIOBHAN ROBERTS [facility] : [birth year] 63 Age/S: 53/F [address] [facility] Unit #: [id number] Loc: [address] [place] [address] Phys: Charito Leroy MD Acct: [id number] Dis Date: Status: ADM IN PHONE #: [phone] Exam Date: 10/05/2018 1145 FAX #: [phone] Reason: NEPH TUBE REMOVAL EXAMS: CPT CODE: [id number] XR ABSCESS/FIST/SIN [id number] REASON FOR EXAM: NEPH TUBE REMOVAL Exam order date: 10/05/2018 11:30 AM CPT cod es: [id number], [id number] FINDINGS: The patient was taken to radiology and placed supine on the table. Patient had the drainage tube since 2018 for treatment of left perinephric abscess. Antibiotics: The pat ient has been on IV antibiotics Daily catheter outputs: Less than 10 cc 5 cc mL of 50% isovue delivered by gravity to the tube. Fluoroscopic time: 12 sec Fluoroscopic dose: 14 mGy Number of flu oroscopic images obtained: 2 IMPRESSION: Large residual abscess cavity. The abscess material is too viscus/thick for the percutaneous dr perrin. Recommend surgical intervention at 1341 Reported and signed by: Jewel Reyez M.D. CC: Charito Leroy MD Technologist: MAYA BURRIS RT(R) Trnscrd Date/Time/By: 10/05/2018 (1192) : By: [email or web address] Orig Print D/T: S: 10/05/2018 (4180) PAGE 1 Signed Report CBC W/AUTO [id number] 11:05:00* Test Item Value Reference Range Comments WHITE BLOOD CELL (test code=WBC) 6.4 K/mm3 4.5-12.5 RED BLOOD CELL (test code=RBC) 3.05 mill/mm3 3.7-5.2 HEMOGLOBIN (test code=HGB) 8.0 gram/dL 11.5-15.5 HEMATOCRIT (test code=HCT) 26.9 % 36.0-46.0 MEAN CELL VOLUME (test code=MCV) 88.2 fL 80-98 MEAN CELL HGB (test code=MCH) 26.2 picogram 27.0-33.0 MEAN CELL HGB CONCETRATION (test code=MCHC) 29.7 gram/dL 33.0-36.0 RED CELL DISTRIBUTION WIDTH (test code=RDW) 22.2 % 11.6-16.2 RED CELL DISTRIBUTION WIDTH SD (test code=RDW-SD) 71.2 fL 37.0-51.0 PLATELET COUNT (test code=PLT) 82 K/mm3 150-450 MEAN PLATELET VOLUME (test code=MPV) 13.0 fL 6.7-11.0 NEUTROPHIL % (test code=NT%) 77.3 % 39.0-69.0 IMMATURE GRANULOCYTE % (test code=IG%) 0.6 % 0.0-5.0 LYMPHOCYTE % (test code=LY%) 12.6 % 25.0-55.0 MONOCYTE % (test code=MO%) 8.5 % 0.0-10.0 EOSINOPHIL % (test code=EO%) 0.8 % 0.0-5.0 BASOPHIL % (test code=BA%) 0.2 % 0.0-1.0 NUCLEATED RBC % (test code=NRBC%) 0.0 % 0-0 NEUTROPHIL # (test code=NT#) 4.91 K/mm3 1.8-7.7 IMMATURE GRANULOCYTE # (test code=IG#) 0.04 x10 3/uL 0-0.03 LYMPHOCYTE # (test code=LY#) 0.80 K/mm3 1.0-5.0 MONOCYTE # (test code=MO#) 0.54 K/mm3 0-0.8 EOSINOPHIL # (test code=EO#) 0.05 K/mm3 0.0-0.5 BASOPHIL # (test code=BA#) 0.01 K/mm3 0.0-0.2 NUCLEATED RBC # (test code=NRBC#) 0.00 K/mm3 0.0-0.1 MANUAL DIFF REQUIRED (test code=MDIFF) NO, ONLY SCAN NEEDED DIFFERENTIAL [id number] 11:05:00* Test Item Value Reference Range Comments STAIN ACCEPTABILITY (test code=STN ACCEPTABLE) STAIN ACCEPTABLE POLYCHROMASIA (test code=POLC) 1+ HYPOCHROMIA (test code=HYPO) 2+ POIKILOCYTOSIS (test code=POIK) 1+ ANISOCYTOSIS (test code=ANISO) 2+ PLATELET ESTIMATE (test code=PLTEST) DECREASED PLATELET MORPHOLOGY (test code=PLTMORPH) NORMAL CBC W/AUTO [id number] 07:02:00* Test Item Value Reference Range Comments WHITE BLOOD CELL (test code=WBC) 6.4 K/mm3 4.5-12.5 RED BLOOD CELL (test code=RBC) 3.05 mill/mm3 3.7-5.2 HEMOGLOBIN (test code=HGB) 8.0 gram/dL 11.5-15.5 HEMATOCRIT (test code=HCT) 26.9 % 36.0-46.0 MEAN CELL VOLUME (test code=MCV) 88.2 fL 80-98 MEAN CELL HGB (test code=MCH) 26.2 picogram 27.0-33.0 MEAN CELL HGB CONCETRATION (test code=MCHC) 29.7 gram/dL 33.0-36.0 RED CELL DISTRIBUTION WIDTH (test code=RDW) 22.2 % 11.6-16.2 RED CELL DISTRIBUTION WIDTH SD (test code=RDW-SD) 71.2 fL 37.0-51.0 PLATELET COUNT (test code=PLT) 82 K/mm3 150-450 MEAN PLATELET VOLUME (test code=MPV) 13.0 fL 6.7-11.0 NEUTROPHIL % (test code=NT%) 77.3 % 39.0-69.0 IMMATURE GRANULOCYTE % (test code=IG%) 0.6 % 0.0-5.0 LYMPHOCYTE % (test code=LY%) 12.6 % 25.0-55.0 MONOCYTE % (test code=MO%) 8.5 % 0.0-10.0 EOSINOPHIL % (test code=EO%) 0.8 % 0.0-5.0 BASOPHIL % (test code=BA%) 0.2 % 0.0-1.0 NUCLEATED RBC % (test code=NRBC%) 0.0 % 0-0 NEUTROPHIL # (test code=NT#) 4.91 K/mm3 1.8-7.7 IMMATURE GRANULOCYTE # (test code=IG#) 0.04 x10 3/uL 0-0.03 LYMPHOCYTE # (test code=LY#) 0.80 K/mm3 1.0-5.0 MONOCYTE # (test code=MO#) 0.54 K/mm3 0-0.8 EOSINOPHIL # (test code=EO#) 0.05 K/mm3 0.0-0.5 BASOPHIL # (test code=BA#) 0.01 K/mm3 0.0-0.2 NUCLEATED RBC # (test code=NRBC#) 0.00 K/mm3 0.0-0.1 MANUAL DIFF REQUIRED (test code=MDIFF) NO, ONLY SCAN NEEDED DIFFERENTIAL [id number] 07:02:00* Test Item Value Reference Range Comments STAIN ACCEPTABILITY (test code=STN ACCEPTABLE) CABOT RINGS (test code=CAB) MORPHOLOGY COMMENT (test code=MOC) PLATELET ESTIMATE (test code=PLTEST) PLATELET MORPHOLOGY (test code=PLTMORPH) CBC W/AUTO [id number] 07:02:00* Test Item Value Reference Range Comments WHITE BLOOD CELL (test code=WBC) 6.4 K/mm3 4.5-12.5 RED BLOOD CELL (test code=RBC) 3.05 mill/mm3 3.7-5.2 HEMOGLOBIN (test code=HGB) 8.0 gram/dL 11.5-15.5 HEMATOCRIT (test code=HCT) 26.9 % 36.0-46.0 MEAN CELL VOLUME (test code=MCV) 88.2 fL 80-98 MEAN CELL HGB (test code=MCH) 26.2 picogram 27.0-33.0 MEAN CELL HGB CONCETRATION (test code=MCHC) 29.7 gram/dL 33.0-36.0 RED CELL DISTRIBUTION WIDTH (test code=RDW) 22.2 % 11.6-16.2 RED CELL DISTRIBUTION WIDTH SD (test code=RDW-SD) 71.2 fL 37.0-51.0 PLATELET COUNT (test code=PLT) 82 K/mm3 150-450 MEAN PLATELET VOLUME (test code=MPV) 13.0 fL 6.7-11.0 NEUTROPHIL % (test code=NT%) 77.3 % 39.0-69.0 IMMATURE GRANULOCYTE % (test code=IG%) 0.6 % 0.0-5.0 LYMPHOCYTE % (test code=LY%) 12.6 % 25.0-55.0 MONOCYTE % (test code=MO%) 8.5 % 0.0-10.0 EOSINOPHIL % (test code=EO%) 0.8 % 0.0-5.0 BASOPHIL % (test code=BA%) 0.2 % 0.0-1.0 NUCLEATED RBC % (test code=NRBC%) 0.0 % 0-0 NEUTROPHIL # (test code=NT#) 4.91 K/mm3 1.8-7.7 IMMATURE GRANULOCYTE # (test code=IG#) 0.04 x10 3/uL 0-0.03 LYMPHOCYTE # (test code=LY#) 0.80 K/mm3 1.0-5.0 MONOCYTE # (test code=MO#) 0.54 K/mm3 0-0.8 EOSINOPHIL # (test code=EO#) 0.05 K/mm3 0.0-0.5 BASOPHIL # (test code=BA#) 0.01 K/mm3 0.0-0.2 NUCLEATED RBC # (test code=NRBC#) 0.00 K/mm3 0.0-0.1 MANUAL DIFF REQUIRED (test code=MDIFF) NO, ONLY SCAN NEEDED DIFFERENTIAL [id number] 07:02:00* Test Item Value Reference Range Comments STAIN ACCEPTABILITY (test code=STN ACCEPTABLE) CABOT RINGS (test code=CAB) MORPHOLOGY COMMENT (test code=MOC) PLATELET ESTIMATE (test code=PLTEST) PLATELET MORPHOLOGY (test code=PLTMORPH) CBC W/AUTO [id number] 07:02:00* Test Item Value Reference Range Comments WHITE BLOOD CELL (test code=WBC) 6.4 K/mm3 4.5-12.5 RED BLOOD CELL (test code=RBC) 3.05 mill/mm3 3.7-5.2 HEMOGLOBIN (test code=HGB) 8.0 gram/dL 11.5-15.5 HEMATOCRIT (test code=HCT) 26.9 % 36.0-46.0 MEAN CELL VOLUME (test code=MCV) 88.2 fL 80-98 MEAN CELL HGB (test code=MCH) 26.2 picogram 27.0-33.0 MEAN CELL HGB CONCETRATION (test code=MCHC) 29.7 gram/dL 33.0-36.0 RED CELL DISTRIBUTION WIDTH (test code=RDW) 22.2 % 11.6-16.2 RED CELL DISTRIBUTION WIDTH SD (test code=RDW-SD) 71.2 fL 37.0-51.0 PLATELET COUNT (test code=PLT) 82 K/mm3 150-450 MEAN PLATELET VOLUME (test code=MPV) 13.0 fL 6.7-11.0 NEUTROPHIL % (test code=NT%) 77.3 % 39.0-69.0 IMMATURE GRANULOCYTE % (test code=IG%) 0.6 % 0.0-5.0 LYMPHOCYTE % (test code=LY%) 12.6 % 25.0-55.0 MONOCYTE % (test code=MO%) 8.5 % 0.0-10.0 EOSINOPHIL % (test code=EO%) 0.8 % 0.0-5.0 BASOPHIL % (test code=BA%) 0.2 % 0.0-1.0 NUCLEATED RBC % (test code=NRBC%) 0.0 % 0-0 NEUTROPHIL # (test code=NT#) 4.91 K/mm3 1.8-7.7 IMMATURE GRANULOCYTE # (test code=IG#) 0.04 x10 3/uL 0-0.03 LYMPHOCYTE # (test code=LY#) 0.80 K/mm3 1.0-5.0 MONOCYTE # (test code=MO#) 0.54 K/mm3 0-0.8 EOSINOPHIL # (test code=EO#) 0.05 K/mm3 0.0-0.5 BASOPHIL # (test code=BA#) 0.01 K/mm3 0.0-0.2 NUCLEATED RBC # (test code=NRBC#) 0.00 K/mm3 0.0-0.1 MANUAL DIFF REQUIRED (test code=MDIFF) NO, ONLY SCAN NEEDED DIFFERENTIAL [id number] 07:02:00* Test Item Value Reference Range Comments STAIN ACCEPTABILITY (test code=STN ACCEPTABLE) MORPHOLOGY COMMENT (test code=MOC) PLATELET ESTIMATE (test code=PLTEST) PLATELET MORPHOLOGY (test code=PLTMORPH) CBC W/AUTO [id number] 07:02:00* Test Item Value Reference Range Comments WHITE BLOOD CELL (test code=WBC) 6.4 K/mm3 4.5-12.5 RED BLOOD CELL (test code=RBC) 3.05 mill/mm3 3.7-5.2 HEMOGLOBIN (test code=HGB) 8.0 gram/dL 11.5-15.5 HEMATOCRIT (test code=HCT) 26.9 % 36.0-46.0 MEAN CELL VOLUME (test code=MCV) 88.2 fL 80-98 MEAN CELL HGB (test code=MCH) 26.2 picogram 27.0-33.0 MEAN CELL HGB CONCETRATION (test code=MCHC) 29.7 gram/dL 33.0-36.0 RED CELL DISTRIBUTION WIDTH (test code=RDW) 22.2 % 11.6-16.2 RED CELL DISTRIBUTION WIDTH SD (test code=RDW-SD) 71.2 fL 37.0-51.0 PLATELET COUNT (test code=PLT) 82 K/mm3 150-450 MEAN PLATELET VOLUME (test code=MPV) 13.0 fL 6.7-11.0 NEUTROPHIL % (test code=NT%) 77.3 % 39.0-69.0 IMMATURE GRANULOCYTE % (test code=IG%) 0.6 % 0.0-5.0 LYMPHOCYTE % (test code=LY%) 12.6 % 25.0-55.0 MONOCYTE % (test code=MO%) 8.5 % 0.0-10.0 EOSINOPHIL % (test code=EO%) 0.8 % 0.0-5.0 BASOPHIL % (test code=BA%) 0.2 % 0.0-1.0 NUCLEATED RBC % (test code=NRBC%) 0.0 % 0-0 NEUTROPHIL # (test code=NT#) 4.91 K/mm3 1.8-7.7 IMMATURE GRANULOCYTE # (test code=IG#) 0.04 x10 3/uL 0-0.03 LYMPHOCYTE # (test code=LY#) 0.80 K/mm3 1.0-5.0 MONOCYTE # (test code=MO#) 0.54 K/mm3 0-0.8 EOSINOPHIL # (test code=EO#) 0.05 K/mm3 0.0-0.5 BASOPHIL # (test code=BA#) 0.01 K/mm3 0.0-0.2 NUCLEATED RBC # (test code=NRBC#) 0.00 K/mm3 0.0-0.1 MANUAL DIFF REQUIRED (test code=MDIFF) NO, ONLY SCAN NEEDED DIFFERENTIAL [id number] 07:02:00* Test Item Value Reference Range Comments STAIN ACCEPTABILITY (test code=STN ACCEPTABLE) CABOT RINGS (test code=CAB) MORPHOLOGY COMMENT (test code=MOC) PLATELET ESTIMATE (test code=PLTEST) PLATELET MORPHOLOGY (test code=PLTMORPH) BASIC METABOLIC [id number] 06:48:00* Test Item Value Reference Range Comments SODIUM (test code=NA) 146 mmol/L 136-145 POTASSIUM (test code=K) 4.2 mmol/L 3.5-5.1 CHLORIDE (test code=CL) 117.0 mmol/L 98-107 CARBON DIOXIDE (test code=CO2) 24.0 mmol/L 21-32 ANION GAP (test code=GAP) 9.2 10-20 GLUCOSE (test code=GLU) 114 mg/dL 74-106 BLOOD UREA NITROGEN (test code=BUN) 33 mg/dL 7-18 GLOMERULAR FILTRATION RATE (test code=GFR) 39 mL/min >=60 Estimated GFR by using Modified MDRD formula.Chronic kidney disease is defined as either kidney damageor GFR <60 mL/min/1.73 m2 for >3 months. CREATININE (test code=CREAT) 1.40 mg/dL 0.55-1.02 Note change in reference range due to change in reagent. BUN/CREATININE RATIO (test code=BUN/CREA) 23.6 10-20 CALCIUM (test code=CA) 8.8 mg/dL 8.5-10.1 BASIC METABOLIC [id number] 06:40:00* Test Item Value Reference Range Comments SODIUM (test code=NA) 146 mmol/L 136-145 POTASSIUM (test code=K) 4.2 mmol/L 3.5-5.1 CHLORIDE (test code=CL) 117.0 mmol/L 98-107 CARBON DIOXIDE (test code=CO2) mmol/L 21-32 ANION GAP (test code=GAP) 10-20 GLUCOSE (test code=GLU) mg/dL 74-106 BLOOD UREA NITROGEN (test code=BUN) mg/dL 7-18 GLOMERULAR FILTRATION RATE (test code=GFR) mL/min >=60 CREATININE (test code=CREAT) mg/dL 0.55-1.02 BUN/CREATININE RATIO (test code=BUN/CREA) 10-20 CALCIUM (test code=CA) mg/dL 8.5-10.1 PROTHROMBIN [id number] 16:30:00* Test Item Value Reference Range Comments PROTHROMBIN TIME PATIENT (test code=PTP) 13.9 seconds 9.0-14.0 INTERNATIONAL NORMAL RATIO (test code=INR) 1.2 0.8-1.2 The therapeutic range for oral anticoagulant therapy formost indications is an international normalized ratio (INR)of between 2.0 and 3.0. The recommended therapeutic INRrange for various clinical situations is listed below: Clinical Situation INR range Pulmonary e mbolism treatment (2.0-3.0)Venous thrombosis treatmentVenous thrombosis prophylaxis (high risk surgery)Prevention of systemic embolism from: Acute myocardial infarction Valvular heart disease Atrial fibrillation Mechanical prosthetic heart valves (2.5-3.5) IS PATIENT ON ANTICOAGULANTS? NTHROMBOPLASTIN TIME [id number] 16:30:00* Test Item Value Reference Range Comments THROMBOPLASTIN TIME PARTIAL (test code=PTT) 31.0 seconds 25.0-36.5 IS PATIENT ON ANTICOAGULANTS? KORY,[id number] 15:50:00 RUN DATE: 10/04/18 [facility] PAGE 1 RUN TIME: 1550 Specimen Inqui ry RUN USER: INTERFACE PATIENT: SIOBHAN BARBOSA ACCT #: [id number] LOC: HOLLANDRENZO U #: [id number] AGE/SX: 53/F ROOM: [facility] RE09/21/18[facility] DR: Charito Leroy MD : 63 BED: B DIS: STATUS: ADM IN TLOC: SPEC #: [id number] RECD: 10/03/18 STATUS: JAC LAZARO #: [id number] RADHA: 09/30/18-[address]: Jay Hughes MD ENTERED: 10/03/18-0855 SP TYPE: GASTRIC BX OTHR DR: Jay Bae i, MD, Tsegaw MD Hampel, Nehemia MD S Vilma de luna MD,Armando HassanORDERED: GROSS COPIES TO: Jay Hughes MD [address] [place] [address] Luanne De La Torre MD [address] [place] [address] Delbert Luna MD [address] [place] [address] Vilma Black MD [address] [facility] [place] [address] Armando Stoner [address] [place], [place] [id number] PROCEDURES: IMSA (10/04/18-1 317) TISSUES: 1. ANTRUM - OF STOMACH BX 2. ESOPHAGUS, NOS - BX CONTINUED ON NEXT PAGE RU N DATE: 10/04/18 [facility] PAGE 2 RUN TIME: 1550 Specimen Inquiry RUN USER: INTERFACE SPEC #: [id number] PATIENT: FAMILIASIOBHAN JIMENEZ #[id number] (Continued) CLINICAL HISTORY COLLECTI ON DATE: 09/30/18 AP FINAL DIAGNOSIS Gastric antrum, biopsy: MILD REACTIVE GASTROPATHY NO ACUTE INFLAMMATORY INFILTRATE PRESENT NO AREAS OF MUCOSAL EROSION/ULCERATION NEGATIVE FOR INTESTINAL METAP LASIA NEGATIVE FOR HELICOBACTER ORGANISMS NEGATIVE FOR MALIGNANCY Esophagus, biopsy: SQUAMOUS MUCOSA WITH ELONGATION OF SQUAMOUS OPAL LLAE, SUBMUCOSAL MODERATE MIXED INFLAMMATION AROUND POLARIZABLE FRAGME NTS OF FOREIGN MATERIAL AND PROMINENT FRAGMENTS OF FIBRINOPURULENT EXUDATE COMPATIBLE WITH ULCERATION FRAGMENTED PSEUDOHYPHAE AND BUDD ING YEAST FORMS COMPATIBLE WITH PASCUAL SPECIES PRESENT (GMS CONTROL P OSITIVE) NO GLANDULAR EPITHELIUM PRESENT NEGATIVE FOR MALIGNANCY RRB/raleigh [phone], [phone] MACROSCOPIC The first specimen is received in formalin, labeled with the patient's name, and identified as "antrum bx". The specimen consists of two mcintosh biopsy fragments measuring 0.2 and 0.4 cm, submitted as (1). An H E and a Giemsa stain will be prepared. The second specimen is received in formalin, labeled with the p atient's name, and identified as "esophagus bx". It consists of two mcintosh biops y fragments measuring 0.2 and 0.4 cm, submitted as (2). MISA PERFORME D AT [facility] [address] [place] [address] [phone] CONTINUED ON NEXT PAGE RUN DATE: 10/04/18 [facility] Lab PAGE 3 RUN TIME: 1550 Specimen Inquiry RUN USER: INTERFACE SPEC #: [id number] PATIENT: SIOBHAN BARBOSA #[id number] (Continued)- MICROSCOPIC All of the stains, including any controls performed, stain appropriately. MICROSCOPIC PERFORMED AT [facility] [address] [place] [address] [phone] PERFORMING SITE Diagnosis performed at: [facility], [place] [address] [facility], [place] [address] Signed SIGNATURE ON FILE Lev Davenport MD 10/04/18 7774 END OF REPORT BASIC METABOLIC PANEL 2018-10-04 10:45:00* Test Item Value Reference Range Comments SODIUM (test code=NA) 144 mmol/L 136-145 POTASSIUM (test code=K) 4.9 mmol/L 3.5-5.1 CHLORIDE (test code=CL) 116.0 mmol/L 98-107 CARBON DIOXIDE (test code=CO2) 20.0 mmol/L 21-32 ANION GAP (test code=GAP) 12.9 10-20 GLUCOSE (test code=GLU) 144 mg/dL 74-106 BLOOD UREA NITROGEN (test code=BUN) 36 mg/dL 7-18 GLOMERULAR FILTRATION RATE (test code=GFR) 36 mL/min >=60 Estimated GFR by using Modified MDRD formula.Chronic kidney disease is defined as either kidney damageor GFR <60 mL/min/1.73 m2 for >3 months. CREATININE (test code=CREAT) 1.50 mg/dL 0.55-1.02 Note change in reference range due to change in reagent. BUN/CREATININE RATIO (test code=BUN/CREA) 24.7 10-20 CALCIUM (test code=CA) 8.7 mg/dL 8.5-10.1 0617- GUIDANCE [facility] [id number] 08:28:00 Name: SIOBHAN BARBOSA [facility] : 1965 Age/S: 53 / F [address] [facility] Unit #: [id number] Loc: [place] [address] Phys: Charito Leroy MD Acct: [id number] Dis Date: Status: ADM IN PHONE #: [phone] Exam Date: 09/27/2018 115 FAX #: [phone] Reason: Report Has Been Amended EXAMS: CPT CODE: [id number] US GUIDANCE [facility] ACCESS 76274 Fluoro Time: 6 DAP (Gy m2): 1181 Air Kerma (mGy): 2.35 Addendum - 10/04/2018 SIGNED 10/04/2018 ADDENDUM: [id number] /[id number] ADDENDUM: Wqzy-pl-vike approximate procedure time is 30 minutes at 0828 Reported and signed by: Jewel Reyez M.D. Transcribed: 10/04/2018 (827) MengVTL Report REASON FOR EXAM: Acute renal failure Exam Order Date: 09/27/2018 11:45 AM Attending Michelet: Charito Leroy MD PROCEDURE: Fluoroscopic and ultrasound guided right IJ temporary dialysis catheter placement FINDINGS: Prior to the procedure, informed consent was obtained after risks and benefits of the procedure were explained to the patient. The patient agreed and wanted to proceed. The patient was brought to special procedures and placed supine on the table. The right neck and chest wall were prepped and draped in the usual fashion. All elements of maximal sterile barrier technique were followed. Ultrasound showed patency of the right IJ. No thrombus id entified, the vein is patent. Images of the vein were submitted to PACS. U nder real time ultrasound guidance, a micropuncture needle was used to acc ess the right IJ. A guide wire was inserted. The tract was dilated to acc ept a temporary dialysis catheter with the tip positioned within the SVC u nder fluoroscopic guidance. The catheter was sutured to the subcutaneous tissue and is ready for use. MEDICATIONS: None COMPLICATIONS: None. Blood Loss: less than 5cc PAGE 1 Signed Report (CONTINUED) Name: KRISTEN BARBOSA [facility] : 1965 Age/S: 53 / F [address] [facility] Unit #: [id number] Loc: [place] [address] Phys: Charito Leroy MD Acct: [id number] Dis Date: Status: ADM IN PHONE #: [phone] Exam Date: 09/27/2018 3755 FAX #: [phone] Reason: Report Has Been Amended EXAMS: CPT C ODE: [id number] US GUIDANCE [facility] ACCESS 77179 Fluoro Time: 6 DAP (Gy m2): 1181 Air Kerma (mGy): 2.35 < Continued> Fluoroscopic time:6 sec Fluoroscopic dose:0.4 mGy Number of images obtained: 3 IMPRESSION: right IJ temporary dialysis catheter is ready for use. at 1348 Reported and signed by: Jewel Reyez M.D. CC: Charito Leroy MD Technologist: Todd Andrews Trnscb Date/Time: 09/27/2018 (4801) Mrak Orig Print D/T: S: 09/27/2018 (5187) PAGE 2 Signed Report - SP FLUORO GUID CTRL ACC DEV 2018-10-04 08:28:00 Name: SIOBHAN BARBOSA [facility] SP : 1965 Age/S: 53 / F [address] [facility] Unit #: [id number] Loc: [place] [address] Phys: Charito Leroy MD Acct: [id number] Dis Date: Status: ADM IN PHONE #: [phone] Exam Date: 09/27/2018 1157 FAX #: [phone] Reason: Report Has Been Amended EXAMS: CPT CODE: [id number] SP FLUORO GUID CTRL ACC DEV 77426 Fluoro Time: 6 DAP (Gy m2): 1181 Air Kerma (mGy): 2.35 Addendum - 10/04/2018 SIGNED 10/04/2018 ADDENDUM: [id number] SP/FLUOROCVAD ADDENDUM: Ffgy-bj-seoa approximate procedure time is 30 minutes at 0836 Reported and signed by: Jewel Reyez M.D. Transcribed: 10/04/2018 (04) Mark Report REASON FOR EXAM: Acute renal failure Exam Order Date: 09/27/2018 11:45 AM Attending Michelet: Charito Leroy MD PROCEDURE: Fluoroscopic and ultrasound guided right IJ temporary dialysis catheter placement FINDINGS: Prior to the procedure, informed consent was obtained after risks and benefits of the procedure were explained to the patient. The patient agreed and wanted to proceed. The patient was brought to special procedures and placed supine on the table. The right neck and chest wall were prepped and draped in the usual fashion. All elements of maximal sterile barrier technique were followed. Ultrasound showed patency of the right IJ. No thrombus identified, the vein is patent. Images of the vein were submitted to PACS. Under real time ultrasound guidance, a micropuncture needle was used to access the right IJ. A guide wire was inserted. The tract was dilated to accept a temporary dialysis catheter with the tip positioned within the SVC under fluoroscopic guidance. The catheter was sutured to the subcutaneous tissue and is ready for use. MEDICATIONS: None COMPLICATIONS: None. Blood Loss: less than 5cc PAGE 1 Signed Report (CONTINUED) Name: SIOBHAN BARBOSA [facility] : 1965 Age/S: 53 / F [address] [facility] Unit #: [id number] Loc: [place] [address] Phys: Charito Leroy MD Acct: [id number] Dis Date: Status: ADM IN PHONE #: [phone] Exam Date: 09/27/2018 1157 FAX #: [phone] Reason: Report Has Been Amended EXAMS: CPT CODE: [id number] SP FLUORO GUID CTRL ACC DEV 88610 Fluoro Time: 6 DAP (Gy m2): 1181 Air Kerma (mGy): 2.35 <Continued> Fluoroscopic time:6 sec Fluoroscopic dose:0.4 mGy Number of images obtained: 3 IMPRESSION: right IJ temporary dialysis catheter is ready for use. at 3306 Reported and signed by: Jewel Reyez M.D. CC: Charito Leroy MD Technologist: Todd Andrews Trngab Date/Time: 09/27/2018 (9188) [email or web address] Orig Print D/T: S: 09/27/2018 (1576) PAGE 2 Signed Report PROCALCITONIN (PCT)2018-10-02 14:55:00* Test Item Value Reference Range Comments PROCALCITONIN (PCT) (test code=PROCAL) 1.57 ng/ml Concentration Interpretation (ng/mL) <0.51 Sepsis is not likely. Local bacterial infection is possible. (LOW RISK for progression to Sepsis) 0.51 - 2.00 Sepsis is possible, but other conditions are known to elevate PCT as well. (MODERATE RISK for progression to Sepsis) > 2.00 Sepsis is likely, unless other causes are known. (HIGH RISK for progression to Severe Sepsis or Septic Shock) 10.00 High likelihood of Severe Sepsis or Septic or higher Shock. *Increased PCT levels may not always be related to systemic bacterial infection.*Low PCT levels do not automatically exclude the presence of bacterial infection.*All results should be interpreted taking into account the patients history. - XR ABDOMEN AP 1 [id number] 14:30:00 FAX: Charito Lowe MD [phone] [place]: St: ADM FAX: Gray Santiago [phone] Name: SIOBHAN BARBOSA [facility] : 1965 Age/S: 53/F [address] [facility] Unit #: [id number] Loc: [place] [address] Phys: Gray Santiago MD Acct: [id number] Dis Date: Status: ADM IN PHONE #: [phone] Exam Date: 10/02/2018 1418 FAX #: [phone] Reason: POSSIBLE CONSTIPATION EXAMS: CPT CODE: [id number] XR ABDOMEN AP 1 V 28559 HISTORY: Constipation TECHNIQUE: AP abdomen x-ray COMPARISON: CT 09/30/18 FINDINGS: Mild colonic fecal retention. Nonobstructive bowel gas pattern. Left upper abdominal staghorn calculus and left ureteral stent. Left abdominal pigtail drainage cat heter. No intra-abdominal mass effect. Degenerative changes of the spine a nd hips. IMPRESSION: Mild colonic fecal re tention. Left upper abdominal staghorn calculus and left urete ral stent. Left abdominal pigtail drainage catheter. at 1430 Reported and signed by: Nguyen Krishna D.O. CC: Charito Leroy MD; Gray Santiago MD Technologist: Belen RETANA( R) Trnscrd Date/Time/By: 10/02/2018 (6748) : By: [email or web address] Orig Print D/T: S: 10/02/2018 (7222) PAGE 1 Signed Report - XR CHEST 2 [id number] 14:28:00 FAX: Charito Lowe MD [phone] [place]: St: [facility] FAX: Gray Santiago [phone] Name: SIOBHAN BARBOSA [facility] : 1965 Age/S: 53/F [address] [facility] Unit #: [id number] Loc: V.[address] [place] [address] Phys: Gray Santiago MD Acct: [id number] Dis Date: Status: ADM IN PHONE #: [phone] Exam Date: 10/02/2018 1418 FAX #: [phone] Reason: COUGHING EXAMS: CPT CODE: [id number] XR CHEST 2 V 57390 HISTORY: COUGHING TECHNIQUE: AP and lateral chest x-ray COMPARISON: 09/27/18 IMPRESSION: No significant interval change. Small bilateral pleural effusion and basilar atelectasis. Mild cardiomegaly. Mediastinal silhouette is unremarkable. Right IJ permacath. at 1428 Reported and signed by: Nguyen Krishna D.O. CC: Charito Leroy MD; Gray Santiago MD Technologist: Belen RETANA(R) Trnscrd Date/Time/By: 10/02/2018 (2161) : By: [email or web address] Orig Print D/T: S: 10/02/2018 (0518) PAGE 1 Signed Report CBC W/MANUAL [id number] 14:13:00 * Test Item Value Reference Range Comments WHITE BLOOD CELL (test code=WBC) 9.2 K/mm3 4.5-12.5 RED BLOOD CELL (test code=RBC) 3.25 mill/mm3 3.7-5.2 HEMOGLOBIN (test code=HGB) 8.4 gram/dL 11.5-15.5 HEMATOCRIT (test code=HCT) 28.7 % 36.0-46.0 MEAN CELL VOLUME (test code=MCV) 88.3 fL 80-98 MEAN CELL HGB (test code=MCH) 25.8 picogram 27.0-33.0 MEAN CELL HGB CONCETRATION (test code=MCHC) 29.3 gram/dL 33.0-36.0 RED CELL DISTRIBUTION WIDTH (test code=RDW) 21.3 % 11.6-16.2 RED CELL DISTRIBUTION WIDTH SD (test code=RDW-SD) 68.2 fL 37.0-51.0 PLATELET COUNT (test code=PLT) 72 K/mm3 150-450 MEAN PLATELET VOLUME (test code=MPV) TEST NOT PERFORMED fL 6.7-11.0 IMMATURE GRANULOCYTE % (test code=IG%) 1.1 % 0.0-5.0 NUCLEATED RBC % (test code=NRBC%) 0.0 % 0-0 NEUTROPHIL # (test code=NT#) 7.72 K/mm3 1.8-7.7 IMMATURE GRANULOCYTE # (test code=IG#) 0.10 x10 3/uL 0-0.03 LYMPHOCYTE # (test code=LY#) 0.83 K/mm3 1.0-5.0 MONOCYTE # (test code=MO#) 0.54 K/mm3 0-0.8 EOSINOPHIL # (test code=EO#) 0.02 K/mm3 0.0-0.5 BASOPHIL # (test code=BA#) 0.00 K/mm3 0.0-0.2 NUCLEATED RBC # (test code=NRBC#) 0.00 K/mm3 0.0-0.1 MANUAL DIFF REQUIRED (test code=MDIFF) YES STAIN ACCEPTABILITY (test code=STN ACCEPTABLE) STAIN ACCEPTABLE TOTAL CELLS COUNTED (test code=TCC) 113 #CELLS SEGMENTED NEUTROPHILS (test code=SEG) 91.1 % 39-69 BAND NEUTROPHIL (test code=BAND) 0 % 0-10 LYMPHOCYTE (test code=LYMPH) 5.3 % 25-55 REACTIVE LYMPH (test code=RELYMPH) 0 % MONOCYTE (test code=MON) 2.7 % 0-10 EOSINOPHIL (test code=EOS) 0 % 0.0-5.0 BASOPHIL (test code=BASO) 0 % 0-1.0 METAMYELOCYTE (test code=META) 0 % 0-0 MYELOCYTE (test code=MYELO) 0 % 0.0-0.0 PROMYELOCYTE (test code=PROM) 0 % 0-0 POLYCHROMASIA (test code=POLC) 1+ POIKILOCYTOSIS (test code=POIK) 1+ ANISOCYTOSIS (test code=ANISO) 1+ MACROCYTOSIS (test code=MACR) 1+ JAYLA CELLS (test code=JAYLA) 1+ NONE PLATELET ESTIMATE (test code=PLTEST) DECREASED PLATELET MORPHOLOGY (test code=PLTMORPH) NORMAL IMMATURE FORMS (test code=IMMAT) 0.9 % CBC W/MANUAL [id number] 13:55:00* Test Item Value Reference Range Comments WHITE BLOOD CELL (test code=WBC) 9.2 K/mm3 4.5-12.5 RED BLOOD CELL (test code=RBC) 3.25 mill/mm3 3.7-5.2 HEMOGLOBIN (test code=HGB) 8.4 gram/dL 11.5-15.5 HEMATOCRIT (test code=HCT) 28.7 % 36.0-46.0 MEAN CELL VOLUME (test code=MCV) 88.3 fL 80-98 MEAN CELL HGB (test code=MCH) 25.8 picogram 27.0-33.0 MEAN CELL HGB CONCETRATION (test code=MCHC) 29.3 gram/dL 33.0-36.0 RED CELL DISTRIBUTION WIDTH (test code=RDW) 21.3 % 11.6-16.2 RED CELL DISTRIBUTION WIDTH SD (test code=RDW-SD) 68.2 fL 37.0-51.0 PLATELET COUNT (test code=PLT) 72 K/mm3 150-450 MEAN PLATELET VOLUME (test code=MPV) TEST NOT PERFORMED fL 6.7-11.0 IMMATURE GRANULOCYTE % (test code=IG%) 1.1 % 0.0-5.0 NUCLEATED RBC % (test code=NRBC%) 0.0 % 0-0 NEUTROPHIL # (test code=NT#) 7.72 K/mm3 1.8-7.7 IMMATURE GRANULOCYTE # (test code=IG#) 0.10 x10 3/uL 0-0.03 LYMPHOCYTE # (test code=LY#) 0.83 K/mm3 1.0-5.0 MONOCYTE # (test code=MO#) 0.54 K/mm3 0-0.8 EOSINOPHIL # (test code=EO#) 0.02 K/mm3 0.0-0.5 BASOPHIL # (test code=BA#) 0.00 K/mm3 0.0-0.2 NUCLEATED RBC # (test code=NRBC#) 0.00 K/mm3 0.0-0.1 MANUAL DIFF REQUIRED (test code=MDIFF) YES STAIN ACCEPTABILITY (test code=STN ACCEPTABLE) TOTAL CELLS COUNTED (test code=TCC) #CELLS SEGMENTED NEUTROPHILS (test code=SEG) % 39-69 LYMPHOCYTE (test code=LYMPH) % 25-55 MONOCYTE (test code=MON) % 0-10 MORPHOLOGY COMMENT (test code=MOC) PLATELET ESTIMATE (test code=PLTEST) PLATELET MORPHOLOGY (test code=PLTMORPH) BASIC METABOLIC [id number] 06:41:00* Test Item Value Reference Range Comments SODIUM (test code=NA) 144 mmol/L 136-145 POTASSIUM (test code=K) 3.2 mmol/L 3.5-5.1 CHLORIDE (test code=CL) 114.0 mmol/L 98-107 CARBON DIOXIDE (test code=CO2) 21.0 mmol/L 21-32 ANION GAP (test code=GAP) 12.2 10-20 GLUCOSE (test code=GLU) 164 mg/dL 74-106 BLOOD UREA NITROGEN (test code=BUN) 38 mg/dL 7-18 GLOMERULAR FILTRATION RATE (test code=GFR) 29 mL/min >=60 Estimated GFR by using Modified MDRD formula.Chronic kidney disease is defined as either kidney damageor GFR <60 mL/min/1.73 m2 for >3 months. CREATININE (test code=CREAT) 1.80 mg/dL 0.55-1.02 Note change in reference range due to change in reagent. BUN/CREATININE RATIO (test code=BUN/CREA) 21.0 10-20 CALCIUM (test code=CA) 8.1 mg/dL 8.5-10.1 BASIC METABOLIC [id number] 06:37:00* Test Item Value Reference Range Comments SODIUM (test code=NA) 144 mmol/L 136-145 POTASSIUM (test code=K) 3.2 mmol/L 3.5-5.1 CHLORIDE (test code=CL) 114.0 mmol/L 98-107 CARBON DIOXIDE (test code=CO2) mmol/L 21-32 ANION GAP (test code=GAP) 10-20 GLUCOSE (test code=GLU) mg/dL 74-106 BLOOD UREA NITROGEN (test code=BUN) mg/dL 7-18 GLOMERULAR FILTRATION RATE (test code=GFR) mL/min >=60 CREATININE (test code=CREAT) mg/dL 0.55-1.02 BUN/CREATININE RATIO (test code=BUN/CREA) 10-20 CALCIUM (test code=CA) mg/dL 8.5-10.1 BASIC METABOLIC [id number] 11:28:00* Test Item Value Reference Range Comments SODIUM (test code=NA) 145 mmol/L 136-145 POTASSIUM (test code=K) 3.3 mmol/L 3.5-5.1 CHLORIDE (test code=CL) 113.0 mmol/L 98-107 CARBON DIOXIDE (test code=CO2) 23.0 mmol/L 21-32 ANION GAP (test code=GAP) 12.3 10-20 GLUCOSE (test code=GLU) 131 mg/dL 74-106 BLOOD UREA NITROGEN (test code=BUN) 38 mg/dL 7-18 GLOMERULAR FILTRATION RATE (test code=GFR) 29 mL/min >=60 Estimated GFR by using Modified MDRD formula.Chronic kidney disease is defined as either kidney damageor GFR <60 mL/min/1.73 m2 for >3 months. CREATININE (test code=CREAT) 1.80 mg/dL 0.55-1.02 Note change in reference range due to change in reagent. BUN/CREATININE RATIO (test code=BUN/CREA) 20.7 10-20 CALCIUM (test code=CA) 8.3 mg/dL 8.5-10.1 - CT ABD PELVIS W/O [id number] 20:44:00 Name: SIOBHAN BARBOSA [facility] : 1965 Age/S: 53 / F [address] Unit #: [id number] Loc: [place] [address] Phys: Jewel Reyez MD Acct: [id number] Dis Date: Status: ADM IN PHONE #: [phone] Exam Date: 09/30/2018 1835 FAX #: [phone] Reason: EVAL FOR FLUID COLLECTION EXAMS: CPT CODE: [id number] CT ABD PELVIS W/O CONT [id number] EXAM: CT of the abdomen and pelvis without contrast; INFORMATION: Status post CT-guided drainage of large left perinephric abscess; TECHNIQUE AND FINDINGS: CT dose reduction protocol; 5 mm cuts through the abdomen and pelvis without contrast material. Compared with a study from September 21, 2018 the previously seen large left retroperitoneal fluid collection has decreased in size after insertion of 2 percutaneous drains. However a sizable fluid collection with a maximum diameter of 11 cm remains. There are multiple small gas pockets suggesting multiloculated collection. This also increa sed density particularly in the posterior dependent portions of this fluid collection represent contrast and less likely blood. The atrophic l eft kidney contains a large staghorn calculus. It is displaced anteriorly. A double pigtail catheter is seen in the left. Moderate atrophy of the ri ght kidney. Nodular liver with hypertrophy of the left lobe and the caudat e lobe; enlarged spleen and large amount of ascites. Gaseous distent ion of small bowel and colon loops with air-fluid levels consistent with i leus; no obstructive pattern. A suprapubic catheter is in place. It is not clear whether its intraluminal because the urinary bladder is empty. Pote ntially could be positioned within the supravesical space. Scans thr ough the lower chest show a moderate right pleural effusion and dependent atelectasis in the right lower lobe. Small calcified granuloma posteriorly in the left lower lobe. IMPRESSION: 1. Partially draine d, large left perinephric fluid collection consistent with an abscess or urinoma with 2 indwelling drainage catheters. In view of the relatively large size of the residual collection I recommend referral for addition al drainage. 2. Atrophic left kidney with large staghorn calculus and do uble-J ureteral stent in place. 3. Suprapubic catheter. It is no t clear where it is intraluminal or positioned within the suprapubic spa ce. Recommend cystogram. 4. Cirrhotic liver, splenomegaly and ascites. 5. Small right pleural effusion basilar atelectatic changes. PAGE 1 Signed Report (CONTINUED) Name: SIOBHAN BARBOSA [facility] : 1964 Age/S: 53 / F [address] [facility] Unit #: [id number] Loc: [place] [address] Phys: Jewel Reyez MD Acct: [id number] Dis Date: Status: ADM IN PHONE #: [phone] Exam Date: 09/30/2018 1835 FAX #: [phone] Reason: EVAL FOR FLUID COLLECTION EXAMS: CPT CODE: [id number] CT ABD PELVIS W/O CONT [id number] <Continued> at 2043 Reported and signed by: Jameel Alvarez M.D. CC: Charito Leroy MD Technologist:ELIDA FREGOSO RT(R) CTDI: DLP: Trnscb Date/Time: 09/30/2018 (2043) [email or web address] Orig Print D/T: S: 09/30/2018 (2046) CTDI: DLP: PAGE 2 Signed Report BASIC METABOLIC [id number] 06:51:00* Test Item Value Reference Range Comments SODIUM (test code=NA) 144 mmol/L 136-145 POTASSIUM (test code=K) 3.2 mmol/L 3.5-5.1 CHLORIDE (test code=CL) 111.0 mmol/L 98-107 CARBON DIOXIDE (test code=CO2) 23.0 mmol/L 21-32 Previously reported result: 23.0 mmol/LEdited by: [email or web address] on 09/30/18:0650 09/30/18 0650: CO2 previously reported as: 23.0 mmol/L ANION GAP (test code=GAP) 13.2 10-20 GLUCOSE (test code=GLU) 128 mg/dL 74-106 BLOOD UREA NITROGEN (test code=BUN) 37 mg/dL 7-18 GLOMERULAR FILTRATION RATE (test code=GFR) 31 mL/min >=60 Estimated GFR by using Modified MDRD formula.Chronic kidney disease is defined as either kidney damageor GFR <60 mL/min/1.73 m2 for >3 months. CREATININE (test code=CREAT) 1.70 mg/dL 0.55-1.02 Note change in reference range due to change in reagent. BUN/CREATININE RATIO (test code=BUN/CREA) 21.6 10-20 CALCIUM (test code=CA) 8.4 mg/dL 8.5-10.1 BASIC METABOLIC [id number] 04:58:00* Test Item Value Reference Range Comments SODIUM (test code=NA) 144 mmol/L 136-145 POTASSIUM (test code=K) 3.2 mmol/L 3.5-5.1 CHLORIDE (test code=CL) 111.0 mmol/L 98-107 CARBON DIOXIDE (test code=CO2) mmol/L 21-32 ANION GAP (test code=GAP) 10-20 GLUCOSE (test code=GLU) mg/dL 74-106 BLOOD UREA NITROGEN (test code=BUN) mg/dL 7-18 GLOMERULAR FILTRATION RATE (test code=GFR) mL/min >=60 CREATININE (test code=CREAT) mg/dL 0.55-1.02 BUN/CREATININE RATIO (test code=BUN/CREA) 10-20 CALCIUM (test code=CA) mg/dL 8.5-10.1 BASIC METABOLIC [id number] 04:58:00* Test Item Value Reference Range Comments SODIUM (test code=NA) 144 mmol/L 136-145 POTASSIUM (test code=K) 3.2 mmol/L 3.5-5.1 CHLORIDE (test code=CL) 111.0 mmol/L 98-107 CARBON DIOXIDE (test code=CO2) 23.0 mmol/L 21-32 ANION GAP (test code=GAP) 10-20 GLUCOSE (test code=GLU) 128 mg/dL 74-106 BLOOD UREA NITROGEN (test code=BUN) 37 mg/dL 7-18 GLOMERULAR FILTRATION RATE (test code=GFR) 31 mL/min >=60 Estimated GFR by using Modified MDRD formula.Chronic kidney disease is defined as either kidney damageor GFR <60 mL/min/1.73 m2 for >3 months. CREATININE (test code=CREAT) 1.70 mg/dL 0.55-1.02 Note change in reference range due to change in reagent. BUN/CREATININE RATIO (test code=BUN/CREA) 21.6 10-20 CALCIUM (test code=CA) 8.4 mg/dL 8.5-10.1 BASIC METABOLIC [id number] 12:13:00* Test Item Value Reference Range Comments SODIUM (test code=NA) 144 mmol/L 136-145 POTASSIUM (test code=K) 3.5 mmol/L 3.5-5.1 CHLORIDE (test code=CL) 109.0 mmol/L 98-107 CARBON DIOXIDE (test code=CO2) 23.0 mmol/L 21-32 ANION GAP (test code=GAP) 15.5 10-20 GLUCOSE (test code=GLU) 138 mg/dL 74-106 BLOOD UREA NITROGEN (test code=BUN) 40 mg/dL 7-18 GLOMERULAR FILTRATION RATE (test code=GFR) 31 mL/min >=60 Estimated GFR by using Modified MDRD formula.Chronic kidney disease is defined as either kidney damageor GFR <60 mL/min/1.73 m2 for >3 months. CREATININE (test code=CREAT) 1.70 mg/dL 0.55-1.02 Note change in reference range due to change in reagent. BUN/CREATININE RATIO (test code=BUN/CREA) 23.4 10-20 CALCIUM (test code=CA) 8.4 mg/dL 8.5-10.1 BASIC METABOLIC [id number] 12:12:00* Test Item Value Reference Range Comments SODIUM (test code=NA) 144 mmol/L 136-145 POTASSIUM (test code=K) 3.5 mmol/L 3.5-5.1 CHLORIDE (test code=CL) 109.0 mmol/L 98-107 CARBON DIOXIDE (test code=CO2) mmol/L 21-32 ANION GAP (test code=GAP) 10-20 GLUCOSE (test code=GLU) mg/dL 74-106 BLOOD UREA NITROGEN (test code=BUN) mg/dL 7-18 GLOMERULAR FILTRATION RATE (test code=GFR) mL/min >=60 CREATININE (test code=CREAT) mg/dL 0.55-1.02 BUN/CREATININE RATIO (test code=BUN/CREA) 10-20 CALCIUM (test code=CA) mg/dL 8.5-10.1 CBC W/AUTO [id number] 06:18:00* Test Item Value Reference Range Comments WHITE BLOOD CELL (test code=WBC) 11.2 K/mm3 4.5-12.5 RED BLOOD CELL (test code=RBC) 3.72 mill/mm3 3.7-5.2 HEMOGLOBIN (test code=HGB) 9.6 gram/dL 11.5-15.5 HEMATOCRIT (test code=HCT) 31.1 % 36.0-46.0 MEAN CELL VOLUME (test code=MCV) 83.6 fL 80-98 MEAN CELL HGB (test code=MCH) 25.8 picogram 27.0-33.0 MEAN CELL HGB CONCETRATION (test code=MCHC) 30.9 gram/dL 33.0-36.0 RED CELL DISTRIBUTION WIDTH (test code=RDW) 19.9 % 11.6-16.2 RED CELL DISTRIBUTION WIDTH SD (test code=RDW-SD) 55.5 fL 37.0-51.0 PLATELET COUNT (test code=PLT) 65 K/mm3 150-450 MEAN PLATELET VOLUME (test code=MPV) TEST NOT PERFORMED fL 6.7-11.0 NEUTROPHIL % (test code=NT%) 84.8 % 39.0-69.0 IMMATURE GRANULOCYTE % (test code=IG%) 2.6 % 0.0-5.0 LYMPHOCYTE % (test code=LY%) 8.0 % 25.0-55.0 MONOCYTE % (test code=MO%) 4.1 % 0.0-10.0 EOSINOPHIL % (test code=EO%) 0.3 % 0.0-5.0 BASOPHIL % (test code=BA%) 0.2 % 0.0-1.0 NUCLEATED RBC % (test code=NRBC%) 0.0 % 0-0 NEUTROPHIL # (test code=NT#) 9.52 K/mm3 1.8-7.7 IMMATURE GRANULOCYTE # (test code=IG#) 0.29 x10 3/uL 0-0.03 LYMPHOCYTE # (test code=LY#) 0.90 K/mm3 1.0-5.0 MONOCYTE # (test code=MO#) 0.46 K/mm3 0-0.8 EOSINOPHIL # (test code=EO#) 0.03 K/mm3 0.0-0.5 BASOPHIL # (test code=BA#) 0.02 K/mm3 0.0-0.2 NUCLEATED RBC # (test code=NRBC#) 0.00 K/mm3 0.0-0.1 MANUAL DIFF REQUIRED (test code=MDIFF) NO, ONLY SCAN NEEDED DIFFERENTIAL [id number] 06:18:00* Test Item Value Reference Range Comments STAIN ACCEPTABILITY (test code=STN ACCEPTABLE) STAIN ACCEPTABLE POIKILOCYTOSIS (test code=POIK) 1+ ANISOCYTOSIS (test code=ANISO) 1+ MACROCYTOSIS (test code=MACR) 1+ PLATELET ESTIMATE (test code=PLTEST) DECREASED PLATELET MORPHOLOGY (test code=PLTMORPH) SIZE VARIABLE CBC W/AUTO [id number] 05:38:00* Test Item Value Reference Range Comments WHITE BLOOD CELL (test code=WBC) 11.2 K/mm3 4.5-12.5 RED BLOOD CELL (test code=RBC) 3.72 mill/mm3 3.7-5.2 HEMOGLOBIN (test code=HGB) 9.6 gram/dL 11.5-15.5 HEMATOCRIT (test code=HCT) 31.1 % 36.0-46.0 MEAN CELL VOLUME (test code=MCV) 83.6 fL 80-98 MEAN CELL HGB (test code=MCH) 25.8 picogram 27.0-33.0 MEAN CELL HGB CONCETRATION (test code=MCHC) 30.9 gram/dL 33.0-36.0 RED CELL DISTRIBUTION WIDTH (test code=RDW) 19.9 % 11.6-16.2 RED CELL DISTRIBUTION WIDTH SD (test code=RDW-SD) 55.5 fL 37.0-51.0 PLATELET COUNT (test code=PLT) 65 K/mm3 150-450 MEAN PLATELET VOLUME (test code=MPV) TEST NOT PERFORMED fL 6.7-11.0 NEUTROPHIL % (test code=NT%) 84.8 % 39.0-69.0 IMMATURE GRANULOCYTE % (test code=IG%) 2.6 % 0.0-5.0 LYMPHOCYTE % (test code=LY%) 8.0 % 25.0-55.0 MONOCYTE % (test code=MO%) 4.1 % 0.0-10.0 EOSINOPHIL % (test code=EO%) 0.3 % 0.0-5.0 BASOPHIL % (test code=BA%) 0.2 % 0.0-1.0 NUCLEATED RBC % (test code=NRBC%) 0.0 % 0-0 NEUTROPHIL # (test code=NT#) 9.52 K/mm3 1.8-7.7 IMMATURE GRANULOCYTE # (test code=IG#) 0.29 x10 3/uL 0-0.03 LYMPHOCYTE # (test code=LY#) 0.90 K/mm3 1.0-5.0 MONOCYTE # (test code=MO#) 0.46 K/mm3 0-0.8 EOSINOPHIL # (test code=EO#) 0.03 K/mm3 0.0-0.5 BASOPHIL # (test code=BA#) 0.02 K/mm3 0.0-0.2 NUCLEATED RBC # (test code=NRBC#) 0.00 K/mm3 0.0-0.1 MANUAL DIFF REQUIRED (test code=MDIFF) NO, ONLY SCAN NEEDED DIFFERENTIAL [id number] 05:38:00* Test Item Value Reference Range Comments STAIN ACCEPTABILITY (test code=STN ACCEPTABLE) CABOT RINGS (test code=CAB) MORPHOLOGY COMMENT (test code=MOC) PLATELET ESTIMATE (test code=PLTEST) PLATELET MORPHOLOGY (test code=PLTMORPH) CBC W/AUTO [id number] 05:38:00* Test Item Value Reference Range Comments WHITE BLOOD CELL (test code=WBC) 11.2 K/mm3 4.5-12.5 RED BLOOD CELL (test code=RBC) 3.72 mill/mm3 3.7-5.2 HEMOGLOBIN (test code=HGB) 9.6 gram/dL 11.5-15.5 HEMATOCRIT (test code=HCT) 31.1 % 36.0-46.0 MEAN CELL VOLUME (test code=MCV) 83.6 fL 80-98 MEAN CELL HGB (test code=MCH) 25.8 picogram 27.0-33.0 MEAN CELL HGB CONCETRATION (test code=MCHC) 30.9 gram/dL 33.0-36.0 RED CELL DISTRIBUTION WIDTH (test code=RDW) 19.9 % 11.6-16.2 RED CELL DISTRIBUTION WIDTH SD (test code=RDW-SD) 55.5 fL 37.0-51.0 PLATELET COUNT (test code=PLT) 65 K/mm3 150-450 MEAN PLATELET VOLUME (test code=MPV) TEST NOT PERFORMED fL 6.7-11.0 NEUTROPHIL % (test code=NT%) 84.8 % 39.0-69.0 IMMATURE GRANULOCYTE % (test code=IG%) 2.6 % 0.0-5.0 LYMPHOCYTE % (test code=LY%) 8.0 % 25.0-55.0 MONOCYTE % (test code=MO%) 4.1 % 0.0-10.0 EOSINOPHIL % (test code=EO%) 0.3 % 0.0-5.0 BASOPHIL % (test code=BA%) 0.2 % 0.0-1.0 NUCLEATED RBC % (test code=NRBC%) 0.0 % 0-0 NEUTROPHIL # (test code=NT#) 9.52 K/mm3 1.8-7.7 IMMATURE GRANULOCYTE # (test code=IG#) 0.29 x10 3/uL 0-0.03 LYMPHOCYTE # (test code=LY#) 0.90 K/mm3 1.0-5.0 MONOCYTE # (test code=MO#) 0.46 K/mm3 0-0.8 EOSINOPHIL # (test code=EO#) 0.03 K/mm3 0.0-0.5 BASOPHIL # (test code=BA#) 0.02 K/mm3 0.0-0.2 NUCLEATED RBC # (test code=NRBC#) 0.00 K/mm3 0.0-0.1 MANUAL DIFF REQUIRED (test code=MDIFF) NO, ONLY SCAN NEEDED DIFFERENTIAL [id number] 05:38:00* Test Item Value Reference Range Comments STAIN ACCEPTABILITY (test code=STN ACCEPTABLE) CABOT RINGS (test code=CAB) MORPHOLOGY COMMENT (test code=MOC) PLATELET ESTIMATE (test code=PLTEST) PLATELET MORPHOLOGY (test code=PLTMORPH) CBC W/AUTO [id number] 05:38:00* Test Item Value Reference Range Comments WHITE BLOOD CELL (test code=WBC) 11.2 K/mm3 4.5-12.5 RED BLOOD CELL (test code=RBC) 3.72 mill/mm3 3.7-5.2 HEMOGLOBIN (test code=HGB) 9.6 gram/dL 11.5-15.5 HEMATOCRIT (test code=HCT) 31.1 % 36.0-46.0 MEAN CELL VOLUME (test code=MCV) 83.6 fL 80-98 MEAN CELL HGB (test code=MCH) 25.8 picogram 27.0-33.0 MEAN CELL HGB CONCETRATION (test code=MCHC) 30.9 gram/dL 33.0-36.0 RED CELL DISTRIBUTION WIDTH (test code=RDW) 19.9 % 11.6-16.2 RED CELL DISTRIBUTION WIDTH SD (test code=RDW-SD) 55.5 fL 37.0-51.0 PLATELET COUNT (test code=PLT) 65 K/mm3 150-450 MEAN PLATELET VOLUME (test code=MPV) TEST NOT PERFORMED fL 6.7-11.0 NEUTROPHIL % (test code=NT%) 84.8 % 39.0-69.0 IMMATURE GRANULOCYTE % (test code=IG%) 2.6 % 0.0-5.0 LYMPHOCYTE % (test code=LY%) 8.0 % 25.0-55.0 MONOCYTE % (test code=MO%) 4.1 % 0.0-10.0 EOSINOPHIL % (test code=EO%) 0.3 % 0.0-5.0 BASOPHIL % (test code=BA%) 0.2 % 0.0-1.0 NUCLEATED RBC % (test code=NRBC%) 0.0 % 0-0 NEUTROPHIL # (test code=NT#) 9.52 K/mm3 1.8-7.7 IMMATURE GRANULOCYTE # (test code=IG#) 0.29 x10 3/uL 0-0.03 LYMPHOCYTE # (test code=LY#) 0.90 K/mm3 1.0-5.0 MONOCYTE # (test code=MO#) 0.46 K/mm3 0-0.8 EOSINOPHIL # (test code=EO#) 0.03 K/mm3 0.0-0.5 BASOPHIL # (test code=BA#) 0.02 K/mm3 0.0-0.2 NUCLEATED RBC # (test code=NRBC#) 0.00 K/mm3 0.0-0.1 MANUAL DIFF REQUIRED (test code=MDIFF) NO, ONLY SCAN NEEDED DIFFERENTIAL [id number] 05:38:00* Test Item Value Reference Range Comments STAIN ACCEPTABILITY (test code=STN ACCEPTABLE) MORPHOLOGY COMMENT (test code=MOC) PLATELET ESTIMATE (test code=PLTEST) PLATELET MORPHOLOGY (test code=PLTMORPH) CBC W/AUTO [id number] 05:38:00* Test Item Value Reference Range Comments WHITE BLOOD CELL (test code=WBC) 11.2 K/mm3 4.5-12.5 RED BLOOD CELL (test code=RBC) 3.72 mill/mm3 3.7-5.2 HEMOGLOBIN (test code=HGB) 9.6 gram/dL 11.5-15.5 HEMATOCRIT (test code=HCT) 31.1 % 36.0-46.0 MEAN CELL VOLUME (test code=MCV) 83.6 fL 80-98 MEAN CELL HGB (test code=MCH) 25.8 picogram 27.0-33.0 MEAN CELL HGB CONCETRATION (test code=MCHC) 30.9 gram/dL 33.0-36.0 RED CELL DISTRIBUTION WIDTH (test code=RDW) 19.9 % 11.6-16.2 RED CELL DISTRIBUTION WIDTH SD (test code=RDW-SD) 55.5 fL 37.0-51.0 PLATELET COUNT (test code=PLT) 65 K/mm3 150-450 MEAN PLATELET VOLUME (test code=MPV) TEST NOT PERFORMED fL 6.7-11.0 NEUTROPHIL % (test code=NT%) 84.8 % 39.0-69.0 IMMATURE GRANULOCYTE % (test code=IG%) 2.6 % 0.0-5.0 LYMPHOCYTE % (test code=LY%) 8.0 % 25.0-55.0 MONOCYTE % (test code=MO%) 4.1 % 0.0-10.0 EOSINOPHIL % (test code=EO%) 0.3 % 0.0-5.0 BASOPHIL % (test code=BA%) 0.2 % 0.0-1.0 NUCLEATED RBC % (test code=NRBC%) 0.0 % 0-0 NEUTROPHIL # (test code=NT#) 9.52 K/mm3 1.8-7.7 IMMATURE GRANULOCYTE # (test code=IG#) 0.29 x10 3/uL 0-0.03 LYMPHOCYTE # (test code=LY#) 0.90 K/mm3 1.0-5.0 MONOCYTE # (test code=MO#) 0.46 K/mm3 0-0.8 EOSINOPHIL # (test code=EO#) 0.03 K/mm3 0.0-0.5 BASOPHIL # (test code=BA#) 0.02 K/mm3 0.0-0.2 NUCLEATED RBC # (test code=NRBC#) 0.00 K/mm3 0.0-0.1 MANUAL DIFF REQUIRED (test code=MDIFF) NO, ONLY SCAN NEEDED DIFFERENTIAL [id number] 05:38:00* Test Item Value Reference Range Comments STAIN ACCEPTABILITY (test code=STN ACCEPTABLE) CABOT RINGS (test code=CAB) MORPHOLOGY COMMENT (test code=MOC) PLATELET ESTIMATE (test code=PLTEST) PLATELET MORPHOLOGY (test code=PLTMORPH) BASIC METABOLIC [id number] 06:06:00* Test Item Value Reference Range Comments SODIUM (test code=NA) 142 mmol/L 136-145 POTASSIUM (test code=K) 3.8 mmol/L 3.5-5.1 CHLORIDE (test code=CL) 106.0 mmol/L 98-107 CARBON DIOXIDE (test code=CO2) 24.0 mmol/L 21-32 ANION GAP (test code=GAP) 15.8 10-20 GLUCOSE (test code=GLU) 183 mg/dL 74-106 BLOOD UREA NITROGEN (test code=BUN) 39 mg/dL 7-18 RESULT VERIFIED BY REPEAT ANALYSIS GLOMERULAR FILTRATION RATE (test code=GFR) 34 mL/min >=60 Estimated GFR by using Modified MDRD formula.Chronic kidney disease is defined as either kidney damageor GFR <60 mL/min/1.73 m2 for >3 months. CREATININE (test code=CREAT) 1.60 mg/dL 0.55-1.02 Note change in reference range due to change in reagent. BUN/CREATININE RATIO (test code=BUN/CREA) 24.4 10-20 CALCIUM (test code=CA) 8.1 mg/dL 8.5-10.1 CBC W/MANUAL [id number] 05:37:00* Test Item Value Reference Range Comments WHITE BLOOD CELL (test code=WBC) 15.5 K/mm3 4.5-12.5 RED BLOOD CELL (test code=RBC) 3.78 mill/mm3 3.7-5.2 HEMOGLOBIN (test code=HGB) 9.5 gram/dL 11.5-15.5 RESULT VERIFIED BY REPEAT ANALYSIS HEMATOCRIT (test code=HCT) 31.2 % 36.0-46.0 MEAN CELL VOLUME (test code=MCV) 82.5 fL 80-98 MEAN CELL HGB (test code=MCH) 25.1 picogram 27.0-33.0 MEAN CELL HGB CONCETRATION (test code=MCHC) 30.4 gram/dL 33.0-36.0 RED CELL DISTRIBUTION WIDTH (test code=RDW) 19.1 % 11.6-16.2 RED CELL DISTRIBUTION WIDTH SD (test code=RDW-SD) 51.9 fL 37.0-51.0 PLATELET COUNT (test code=PLT) 78 K/mm3 150-450 MEAN PLATELET VOLUME (test code=MPV) TEST NOT PERFORMED fL 6.7-11.0 Unable to determine due to platelet abnormality , please seethe platelet morphology. NEUTROPHIL % (test code=NT%) 86.3 % 39.0-69.0 IMMATURE GRANULOCYTE % (test code=IG%) 4.2 % 0.0-5.0 LYMPHOCYTE % (test code=LY%) 5.5 % 25.0-55.0 MONOCYTE % (test code=MO%) 3.9 % 0.0-10.0 EOSINOPHIL % (test code=EO%) 0.0 % 0.0-5.0 BASOPHIL % (test code=BA%) 0.1 % 0.0-1.0 NUCLEATED RBC % (test code=NRBC%) 0.1 % 0-0 NEUTROPHIL # (test code=NT#) 13.33 K/mm3 1.8-7.7 IMMATURE GRANULOCYTE # (test code=IG#) 0.65 x10 3/uL 0-0.03 LYMPHOCYTE # (test code=LY#) 0.85 K/mm3 1.0-5.0 MONOCYTE # (test code=MO#) 0.60 K/mm3 0-0.8 EOSINOPHIL # (test code=EO#) 0.00 K/mm3 0.0-0.5 BASOPHIL # (test code=BA#) 0.02 K/mm3 0.0-0.2 NUCLEATED RBC # (test code=NRBC#) 0.02 K/mm3 0.0-0.1 MANUAL DIFF REQUIRED (test code=MDIFF) NO, ONLY SCAN NEEDED STAIN ACCEPTABILITY (test code=STN ACCEPTABLE) STAIN ACCEPTABLE TOTAL CELLS COUNTED (test code=TCC) 114 #CELLS SEGMENTED NEUTROPHILS (test code=SEG) 94.7 % 39-69 BAND NEUTROPHIL (test code=BAND) 0 % 0-10 LYMPHOCYTE (test code=LYMPH) 1.8 % 25-55 REACTIVE LYMPH (test code=RELYMPH) 0 % MONOCYTE (test code=MON) 3.5 % 0-10 EOSINOPHIL (test code=EOS) 0 % 0.0-5.0 BASOPHIL (test code=BASO) 0 % 0-1.0 METAMYELOCYTE (test code=META) 0 % 0-0 MYELOCYTE (test code=MYELO) 0 % 0.0-0.0 PROMYELOCYTE (test code=PROM) 0 % 0-0 POLYCHROMASIA (test code=POLC) 2+ HYPOCHROMIA (test code=HYPO) 1+ POIKILOCYTOSIS (test code=POIK) 1+ ANISOCYTOSIS (test code=ANISO) 1+ MICROCYTOSIS (test code=MICR) 1+ MACROCYTOSIS (test code=MACR) 1+ PLATELET ESTIMATE (test code=PLTEST) DECREASED PLATELET MORPHOLOGY (test code=PLTMORPH) NORMAL IMMATURE FORMS (test code=IMMAT) 0 % BASIC METABOLIC [id number] 05:30:00* Test Item Value Reference Range Comments SODIUM (test code=NA) 142 mmol/L 136-145 POTASSIUM (test code=K) 3.8 mmol/L 3.5-5.1 CHLORIDE (test code=CL) 106.0 mmol/L 98-107 CARBON DIOXIDE (test code=CO2) mmol/L 21-32 ANION GAP (test code=GAP) 10-20 GLUCOSE (test code=GLU) mg/dL 74-106 BLOOD UREA NITROGEN (test code=BUN) mg/dL 7-18 GLOMERULAR FILTRATION RATE (test code=GFR) mL/min >=60 CREATININE (test code=CREAT) mg/dL 0.55-1.02 BUN/CREATININE RATIO (test code=BUN/CREA) 10-20 CALCIUM (test code=CA) mg/dL 8.5-10.1 CBC W/MANUAL [id number] 05:21:00* Test Item Value Reference Range Comments WHITE BLOOD CELL (test code=WBC) 15.5 K/mm3 4.5-12.5 RED BLOOD CELL (test code=RBC) 3.78 mill/mm3 3.7-5.2 HEMOGLOBIN (test code=HGB) 9.5 gram/dL 11.5-15.5 RESULT VERIFIED BY REPEAT ANALYSIS HEMATOCRIT (test code=HCT) 31.2 % 36.0-46.0 MEAN CELL VOLUME (test code=MCV) 82.5 fL 80-98 MEAN CELL HGB (test code=MCH) 25.1 picogram 27.0-33.0 MEAN CELL HGB CONCETRATION (test code=MCHC) 30.4 gram/dL 33.0-36.0 RED CELL DISTRIBUTION WIDTH (test code=RDW) 19.1 % 11.6-16.2 RED CELL DISTRIBUTION WIDTH SD (test code=RDW-SD) 51.9 fL 37.0-51.0 PLATELET COUNT (test code=PLT) 78 K/mm3 150-450 MEAN PLATELET VOLUME (test code=MPV) TEST NOT PERFORMED fL 6.7-11.0 Unable to determine due to platelet abnormality , please seethe platelet morphology. NEUTROPHIL % (test code=NT%) 86.3 % 39.0-69.0 IMMATURE GRANULOCYTE % (test code=IG%) 4.2 % 0.0-5.0 LYMPHOCYTE % (test code=LY%) 5.5 % 25.0-55.0 MONOCYTE % (test code=MO%) 3.9 % 0.0-10.0 EOSINOPHIL % (test code=EO%) 0.0 % 0.0-5.0 BASOPHIL % (test code=BA%) 0.1 % 0.0-1.0 NUCLEATED RBC % (test code=NRBC%) 0.1 % 0-0 NEUTROPHIL # (test code=NT#) 13.33 K/mm3 1.8-7.7 IMMATURE GRANULOCYTE # (test code=IG#) 0.65 x10 3/uL 0-0.03 LYMPHOCYTE # (test code=LY#) 0.85 K/mm3 1.0-5.0 MONOCYTE # (test code=MO#) 0.60 K/mm3 0-0.8 EOSINOPHIL # (test code=EO#) 0.00 K/mm3 0.0-0.5 BASOPHIL # (test code=BA#) 0.02 K/mm3 0.0-0.2 NUCLEATED RBC # (test code=NRBC#) 0.02 K/mm3 0.0-0.1 MANUAL DIFF REQUIRED (test code=MDIFF) NO, ONLY SCAN NEEDED STAIN ACCEPTABILITY (test code=STN ACCEPTABLE) TOTAL CELLS COUNTED (test code=TCC) #CELLS SEGMENTED NEUTROPHILS (test code=SEG) % 39-69 LYMPHOCYTE (test code=LYMPH) % 25-55 MONOCYTE (test code=MON) % 0-10 MORPHOLOGY COMMENT (test code=MOC) PLATELET ESTIMATE (test code=PLTEST) PLATELET MORPHOLOGY (test code=PLTMORPH) - [facility]UIDANCE VASC [id number] 13:48:00 Name: SIOBHAN BARBOSA [facility] : 1965 Age/S: 53 / F [address] [facility] Unit #: [id number] Loc: [place] [address] Phys: Charito Leroy MD Acct: [id number] Dis Date: Status: ADM IN PHONE #: [phone] Exam Date: 09/27/2018 1157 FAX #: [phone] Reason: EXAMS: CPT CODE: [id number] [facility] GUIDANCE VASC ACCESS [id number] Fluoro Time: 6 DAP (Gy m2): 1181 Air Kerma (mGy): 2.35 REASON FOR EXAM: Acute renal failure Exam Order Date: 09/27/2018 11:45 AM Attending M.D.: Charito Leroy MD PROCEDURE: Fluoroscopic and ultrasound guided right IJ temporary dialysis catheter placement FINDINGS: Prior to the procedure, informed consent was obtained after risks and benefits of the procedure were explained to the patient. The patient agreed and wanted to proceed. The patient was brought to special procedures and placed supine on the table. The right neck and chest wall were prepped and draped in the usual fashion. All elements of maximal sterile barrier technique were followed. Ultrasound showed patency of the right IJ. No thrombus identified, the vein is patent. Images of the vein were submitted to PACS. Under real time ultrasound guidance, a micropuncture needle was used to access the right IJ. A guide wire was inserted. The tract was dilated to accept a temporary dialysis catheter with the tip positioned within the SVC under fluoroscopic guidance. The catheter was sutured to the s ubcutaneous tissue and is ready for use. MEDICATIONS: None COMPLICATIONS: None. Blood Loss: less than 5cc Fluoroscopic time:6 sec Fluoroscopic dose:0.4 mGy Number of images obtained: 3 IMPRESSION: right IJ temporary dialys is catheter is ready for use. at 1348 Reported and signed by: Sofya Rebolledo PAGE 1 Signed Report (CON TINUED) Name: SIOBHAN BARBOSA [facility] : 1965 Age/S: 53 / F [address] [facility] Unit #: [id number] Loc: [place] [address] Phys: Charito Moura MD Acct: [id number] Dis Date: Status: ADM IN PH ONE #: [phone] Exam Date: 09/27/2018 1158 FAX #: Reason: EXAMS : CPT CODE: [id number] GUID ANCE VASC ACCESS [id number] Fluoro Time: 6 DA P (Gy m2): 1181 Air Kerma (mGy): 2.35 <Continued> CC: Charito Leroy MD Technologist: Todd Andrews [facility] Date/Time: 09/27/2018 (1918) [email or web address] Orig Print D/T: S: 09/27/2018 (5741) PAGE 2 Signed Report - SP FLUORO GUID CTRL ACC [id number] 13:48:00 Name: SIOBHAN BARBOSA [facility] : 1965 Age/S: 53 / F [address] Unit #: [id number] Loc: [place] [address] Phys: Concepcion Leroy MD Acct: [id number] Di s Date: Status: ADM IN PHONE #: Exam Date: 09/27/2018 1157 FAX #: Reason: EXAMS: CPT CODE: [id number] SP FLUORO GUID CTRL ACC DEV [id number] Fluoro Time: 6 DAP (Gy m2 ): 1181 Air Kerma (mGy): 2.35 REASON FOR EXAM: Acute renal f ailure Exam Order Date: 09/27/2018 11:45 AM Attending Michelet: Charito Leroy MD PROCEDURE: Fluoroscopic and ultrasound gu ided right IJ temporary dialysis catheter placement FINDINGS : Prior to the procedure, informed consent was obtained after risks and benefits of the procedure were explained to the patient. The patient agreed and wanted to proceed. [facility]ine on the table. The right neck and chest wall were pre pped and draped in the usual fashion. All elements of maximal sterile schaffer ier technique were followed. Ultrasound showed patency of the right IJ. N o thrombus identified, the vein is patent. Images of the vein were submitt ed to PACS. Under real time ultrasound guidance, a micropuncture needle wa s used to access the right IJ. A guide wire was inserted. The tract was d ilated to accept a temporary dialysis catheter with the tip positioned wit hin the SVC under fluoroscopic guidance. The catheter was sutured to the s ubcutaneous tissue and is ready for use. MEDICATIONS: None COMPLICATIONS: None. Blood Loss: less than 5cc Fluoroscopic time:6 sec Fluoroscopic dose:0.4 mGy Number of images obtained: 3 IMPRESSION: right IJ temporary dialys is catheter is ready for use. at 1348 Reported and signed by: Sofya Rebolledo PAGE 1 Signed Report (CON TINUED) Name: SIOBHAN BARBOSA [facility] : 1965 Age/S: 53 / F [address] Unit #: [id number] Loc: [place] [address] Phys: Charito Moura MD Acct: [id number] Dis Date: Status: ADM IN ONE #: [phone] Exam Date: 09/27/2018 1157 FAX #: [phone] Reason: EXAMS : CPT CODE: [id number] SP FLUO RO GUID CTRL ACC DEV 30954 Fluoro Time: 6 DA P (Gy m2): 1181 Air Kerma (mGy): 2.35 <Continued> CC: Charito Leroy MD Technologist: Todd Andrews [facility] Date/Time: 09/27/2018 (5152) MengVTL Orig Print D/T: S: 09/27/2018 (4104) PAGE 2 Signed Report - XR CHEST 1 [id number] 12:56:00 FAX: Charito Lowe MD [phone] [place]: St: ADM Name: SIOBHAN ROBERTS [facility] : [birth year] Age/S: 53/F [address] [facility] Unit #: [id number] Loc: V.2068 [place] [address] Phys: Jewel Reyez MD Acct: [id number] Dis Date: Status: ADM IN PHONE #: [phone] Exam Date: 09/27/2018 1243 FAX #: [phone] Reason: POST LINE PLACEMENT EXAMS: CPT CODE: [id number] XR CHEST 1 V 62182 HISTORY: Post line placement. COMPARISON: Previous day. Right jugular catheter with the tip projected over the SVC. No pneumothorax. Mild scarring. No acute inf iltrates, effusion or congestion. Cardiomegaly. IMPRESSION : No pneumothorax after right jugular catheter placement. Depe ndent changes. at 5365 Reported and signed by: Krystian Johnson M.D. CC: Charito Leroy MD Technologist: Zoë Bhat(Tanya) [facility] Date/Time/By: 09/27/2018 (2342) : By: [email or web address] Orig Print D/T: S: 09/27/2018 (1300) PAGE 1 Signed Report PROCALCITONIN (PCT)2018-09-27 07:13:00* Test Item Value Reference Range Comments PROCALCITONIN (PCT) (test code=PROCAL) 23.90 ng/ml Results called to [id number] by MYAH 09/27/18 0713Critical results verified and read back by Nurse? YConcentration Interpretation (ng/mL) <0.51 Sepsis is not likely. Local bacterial infection is possible. (LOW RISK for progression to Sepsis) 0.51 - 2.00 Sepsis is possible, but other conditions are known to elevate PCT as well. (MODERATE RISK for progression to Sepsis) > 2.00 Sepsis is likely, unless other causes are known. (HIGH RISK for progression to Severe Sepsis or Septic Shock) 10.00 High likelihood of Severe Sepsis or Septic or higher Shock. *Increased PCT levels may not always be related to systemic bacterial infection.*Low PCT levels do not automatically exclude the presence of bacterial infection.*All results should be interpreted taking into account the patients history. CBC W/MANUAL [id number] 06:56:00* Test Item Value Reference Range Comments WHITE BLOOD CELL (test code=WBC) 12.6 K/mm3 4.5-12.5 RED BLOOD CELL (test code=RBC) 2.76 mill/mm3 3.7-5.2 HEMOGLOBIN (test code=HGB) 6.6 gram/dL 11.5-15.5 HEMATOCRIT (test code=HCT) 22.1 % 36.0-46.0 MEAN CELL VOLUME (test code=MCV) 80.1 fL 80-98 MEAN CELL HGB (test code=MCH) 23.9 picogram 27.0-33.0 MEAN CELL HGB CONCETRATION (test code=MCHC) 29.9 gram/dL 33.0-36.0 RED CELL DISTRIBUTION WIDTH (test code=RDW) 19.0 % 11.6-16.2 RED CELL DISTRIBUTION WIDTH SD (test code=RDW-SD) 51.5 fL 37.0-51.0 PLATELET COUNT (test code=PLT) 101 K/mm3 150-450 MEAN PLATELET VOLUME (test code=MPV) 12.6 fL 6.7-11.0 NEUTROPHIL % (test code=NT%) 78.7 % 39.0-69.0 IMMATURE GRANULOCYTE % (test code=IG%) 2.6 % 0.0-5.0 LYMPHOCYTE % (test code=LY%) 12.7 % 25.0-55.0 MONOCYTE % (test code=MO%) 5.8 % 0.0-10.0 EOSINOPHIL % (test code=EO%) 0.1 % 0.0-5.0 BASOPHIL % (test code=BA%) 0.1 % 0.0-1.0 NUCLEATED RBC % (test code=NRBC%) 0.7 % 0-0 NEUTROPHIL # (test code=NT#) 9.90 K/mm3 1.8-7.7 IMMATURE GRANULOCYTE # (test code=IG#) 0.33 x10 3/uL 0-0.03 LYMPHOCYTE # (test code=LY#) 1.60 K/mm3 1.0-5.0 MONOCYTE # (test code=MO#) 0.73 K/mm3 0-0.8 EOSINOPHIL # (test code=EO#) 0.01 K/mm3 0.0-0.5 BASOPHIL # (test code=BA#) 0.01 K/mm3 0.0-0.2 NUCLEATED RBC # (test code=NRBC#) 0.09 K/mm3 0.0-0.1 MANUAL DIFF REQUIRED (test code=MDIFF) NO, ONLY SCAN NEEDED STAIN ACCEPTABILITY (test code=STN ACCEPTABLE) STAIN ACCEPTABLE TOTAL CELLS COUNTED (test code=TCC) 114 #CELLS SEGMENTED NEUTROPHILS (test code=SEG) 86.0 % 39-69 BAND NEUTROPHIL (test code=BAND) 0.9 % 0-10 LYMPHOCYTE (test code=LYMPH) 9.6 % 25-55 REACTIVE LYMPH (test code=RELYMPH) 0 % MONOCYTE (test code=MON) 2.6 % 0-10 EOSINOPHIL (test code=EOS) 0 % 0.0-5.0 BASOPHIL (test code=BASO) 0 % 0-1.0 METAMYELOCYTE (test code=META) 0 % 0-0 MYELOCYTE (test code=MYELO) 0.9 % 0.0-0.0 PROMYELOCYTE (test code=PROM) 0 % 0-0 POLYCHROMASIA (test code=POLC) 2+ HYPOCHROMIA (test code=HYPO) 3+ ANISOCYTOSIS (test code=ANISO) 2+ MICROCYTOSIS (test code=MICR) 2+ PLATELET ESTIMATE (test code=PLTEST) DECREASED PLATELET MORPHOLOGY (test code=PLTMORPH) NORMAL IMMATURE FORMS (test code=IMMAT) 0 % COMPREHENSIVE METABOLIC [id number] 06:39:00* Test Item Value Reference Range Comments SODIUM (test code=NA) 143 mmol/L 136-145 POTASSIUM (test code=K) 4.4 mmol/L 3.5-5.1 CHLORIDE (test code=CL) 109.0 mmol/L 98-107 CARBON DIOXIDE (test code=CO2) 23.0 mmol/L 21-32 ANION GAP (test code=GAP) 15.4 10-20 GLUCOSE (test code=GLU) 105 mg/dL 74-106 BLOOD UREA NITROGEN (test code=BUN) 66 mg/dL 7-18 GLOMERULAR FILTRATION RATE (test code=GFR) 20 mL/min >=60 Estimated GFR by using Modified MDRD formula.Chronic kidney disease is defined as either kidney damageor GFR <60 mL/min/1.73 m2 for >3 months. CREATININE (test code=CREAT) 2.50 mg/dL 0.55-1.02 Note change in reference range due to change in reagent. BUN/CREATININE RATIO (test code=BUN/CREA) 26.4 10-20 TOTAL PROTEIN (test code=PROT) 4.8 gram/dL 6.4-8.2 ALBUMIN (test code=ALB) 1.3 g/dL 3.4-5.0 GLOBULIN (test code=GLOB) 3.5 gram/dL 2.7-4.2 ALBUMIN/GLOBULIN RATIO (test code=A/G) 0.4 0.75-1.50 CALCIUM (test code=CA) 8.1 mg/dL 8.5-10.1 BILIRUBIN TOTAL (test code=BILT) 2.40 mg/dL 0.0-1.0 SGOT/AST (test code=AST) 72 IUnit/L 15-37 SGPT/ALT (test code=ALT) 77 IUnit/L 12-78 ALKALINE PHOSPHATASE TOTAL (test code=ALKP) 244 IUnit/L 45-117 Note change in reference range due to change in reagent. COMPREHENSIVE METABOLIC [id number] 06:34:00* Test Item Value Reference Range Comments SODIUM (test code=NA) 143 mmol/L 136-145 POTASSIUM (test code=K) 4.4 mmol/L 3.5-5.1 CHLORIDE (test code=CL) 109.0 mmol/L 98-107 CARBON DIOXIDE (test code=CO2) mmol/L 21-32 ANION GAP (test code=GAP) 10-20 GLUCOSE (test code=GLU) mg/dL 74-106 BLOOD UREA NITROGEN (test code=BUN) mg/dL 7-18 GLOMERULAR FILTRATION RATE (test code=GFR) mL/min >=60 CREATININE (test code=CREAT) mg/dL 0.55-1.02 BUN/CREATININE RATIO (test code=BUN/CREA) 10-20 TOTAL PROTEIN (test code=PROT) gram/dL 6.4-8.2 ALBUMIN (test code=ALB) g/dL 3.4-5.0 GLOBULIN (test code=GLOB) gram/dL 2.7-4.2 ALBUMIN/GLOBULIN RATIO (test code=A/G) 0.75-1.50 CALCIUM (test code=CA) mg/dL 8.5-10.1 BILIRUBIN TOTAL (test code=BILT) mg/dL 0.0-1.0 SGOT/AST (test code=AST) IUnit/L 15-37 SGPT/ALT (test code=ALT) IUnit/L 12-78 ALKALINE PHOSPHATASE TOTAL (test code=ALKP) IUnit/L 45-117 [id number] 06:34:00* Test Item Value Reference Range Comments VANCOMYCIN (test code=VANCO) 15.5 UG/ML 5.0-45.0 PROTHROMBIN [id number] 06:33:00* Test Item Value Reference Range Comments PROTHROMBIN TIME PATIENT (test code=PTP) 14.9 seconds 9.0-14.0 INTERNATIONAL NORMAL RATIO (test code=INR) 1.2 0.8-1.2 The therapeutic range for oral anticoagulant therapy formost indications is an international normalized ratio (INR)of between 2.0 and 3.0. The recommended therapeutic INRrange for various clinical situations is listed below: Clinical Situation INR range Pulmonary e mbolism treatment (2.0-3.0)Venous thrombosis treatmentVenous thrombosis prophylaxis (high risk surgery)Prevention of systemic embolism from: Acute myocardial infarction Valvular heart disease Atrial fibrillation Mechanical prosthetic heart valves (2.5-3.5) IS PATIENT ON ANTICOAGULANTS? NHEPATITIS B CORE ANTIBODY,[id number] 06:15:00 * Test Item Value Reference Range Comments HEPATITIS B CORE ANTIBODY,TOT (test code=HBCAB) Positive Negative Performed At: [facility] [address] [id number] Kyle L MD Ph:[phone] AB HEPATITIS B [id number] 06:15:00* Test Item Value Reference Range Comments AB HEPATITIS B SURFACE (test code=HBSAB) Non Reactive () Non Reactive: Inconsistent with immunity, less than 10 mIU/mL Reactive: Consistent with immunity, greater than 9.9 mIU/mL HEPATITIS B CORE ANTIBODY,[id number] 06:15:00* Test Item Value Reference Range Comments HEPATITIS B CORE ANTIBODY,IGM (test code=HBCMAB) NEGATIVE AB HEPATITIS B [id number] 06:15:00* Test Item Value Reference Range Comments AB HEPATITIS B SURFACE (test code=HBSAB) Non Reactive () Non Reactive: Inconsistent with immunity, less than 10 mIU/mL Reactive: Consistent with immunity, greater than 9.9 mIU/mL HEPATITIS B CORE ANTIBODY,[id number] 06:15:00* Test Item Value Reference Range Comments HEPATITIS B CORE ANTIBODY,IGM (test code=HBCMAB) Negative Negative Performed At: [facility] [address] [id number] Arturo Mccormick MD Ph:[phone] CBC W/MANUAL [id number] 06:05:00* Test Item Value Reference Range Comments WHITE BLOOD CELL (test code=WBC) 12.6 K/mm3 4.5-12.5 RED BLOOD CELL (test code=RBC) 2.76 mill/mm3 3.7-5.2 HEMOGLOBIN (test code=HGB) 6.6 gram/dL 11.5-15.5 HEMATOCRIT (test code=HCT) 22.1 % 36.0-46.0 MEAN CELL VOLUME (test code=MCV) 80.1 fL 80-98 MEAN CELL HGB (test code=MCH) 23.9 picogram 27.0-33.0 MEAN CELL HGB CONCETRATION (test code=MCHC) 29.9 gram/dL 33.0-36.0 RED CELL DISTRIBUTION WIDTH (test code=RDW) 19.0 % 11.6-16.2 RED CELL DISTRIBUTION WIDTH SD (test code=RDW-SD) 51.5 fL 37.0-51.0 PLATELET COUNT (test code=PLT) 101 K/mm3 150-450 MEAN PLATELET VOLUME (test code=MPV) 12.6 fL 6.7-11.0 NEUTROPHIL % (test code=NT%) 78.7 % 39.0-69.0 IMMATURE GRANULOCYTE % (test code=IG%) 2.6 % 0.0-5.0 LYMPHOCYTE % (test code=LY%) 12.7 % 25.0-55.0 MONOCYTE % (test code=MO%) 5.8 % 0.0-10.0 EOSINOPHIL % (test code=EO%) 0.1 % 0.0-5.0 BASOPHIL % (test code=BA%) 0.1 % 0.0-1.0 NUCLEATED RBC % (test code=NRBC%) 0.7 % 0-0 NEUTROPHIL # (test code=NT#) 9.90 K/mm3 1.8-7.7 IMMATURE GRANULOCYTE # (test code=IG#) 0.33 x10 3/uL 0-0.03 LYMPHOCYTE # (test code=LY#) 1.60 K/mm3 1.0-5.0 MONOCYTE # (test code=MO#) 0.73 K/mm3 0-0.8 EOSINOPHIL # (test code=EO#) 0.01 K/mm3 0.0-0.5 BASOPHIL # (test code=BA#) 0.01 K/mm3 0.0-0.2 NUCLEATED RBC # (test code=NRBC#) 0.09 K/mm3 0.0-0.1 MANUAL DIFF REQUIRED (test code=MDIFF) NO, ONLY SCAN NEEDED STAIN ACCEPTABILITY (test code=STN ACCEPTABLE) TOTAL CELLS COUNTED (test code=TCC) #CELLS SEGMENTED NEUTROPHILS (test code=SEG) % 39-69 LYMPHOCYTE (test code=LYMPH) % 25-55 MONOCYTE (test code=MON) % 0-10 MORPHOLOGY COMMENT (test code=MOC) PLATELET ESTIMATE (test code=PLTEST) PLATELET MORPHOLOGY (test code=PLTMORPH) - US GUIDANCE VASC [id number] 12:20:00 Name: SIOBHAN BARBOSA [facility] : 1965 Age/S: 53 / F [address] [facility] Unit #: [id number] Loc: [place] [address] Phys: Charito Leroy MD Acct: [id number] Dis Date: Status: ADM IN PHONE #: [phone] Exam Date: 09/26/2018 1143 FAX #: [phone] Reason: EXAMS: CPT CODE: [id number] US GUIDANCE VASC ACCESS 24427 Fluoro Time: 6 DAP (Gy m2): 971 Air Kerma (mGy): 2.10 REASON FOR EXAM: Acute renal failure Exam Order Date: 09/26/2018 11:33 AM Attending M.D.: Charito Leroy MD PROCEDURE: Fluoroscopic and ultrasound guided right IJ temporary dialysis catheter placement FINDINGS: Prior to the procedure, informed consent was obtained after risks and benefits of the procedure were explained to the patient. The patient agreed and wanted to proceed. The patient was brought to special procedures and placed supine on the table. The right neck and chest wall were prepped and draped in the usual fashion. All elements of maximal sterile barrier technique were followed. Ultrasound showed patency of the right IJ. No thrombus identified, the vein is patent. Images of the vein were submitted to PACS. Under real time ultrasound guidance, a micropuncture needle was used to access the right IJ. A guide wire was inserted. The tract was dilated to accept a temporary dialysis catheter with the tip positioned within the SVC under fluoroscopic guidance. The catheter was sutured to the s ubcutaneous tissue and is ready for use. MEDICATIONS: 1 mg o f Versed, 25 mcg of fentanyl. COMPLICATIONS: None. B lood Loss: less than 5cc Fluoroscopic time:6 sec Fluoroscopi c dose:2.1 mGy Number of images obtained: 2 IMPRES DHARA: right IJ temporary dialysis catheter is ready for use. Electro nically Signed by Michelet Reyez on 09/26/2018 at 1220 Rep orted and signed by: Jewel Reyez M.D. PAGE 1 Signed Report (CONTINUED) Name: SIOBHAN BARBOSA [facility] : 1965 Age/S: 53 / F [address] [facility] Unit #: [id number] Loc: [place] [address] Phys: Charito Leroy MD Acct: [id number] Dis Date: Status: ADM IN PHONE #: [phone] Exam Date: 09/26/2018 1143 FAX #: [phone] Reason: EXAMS: CPT CODE: [id number] US GUIDANCE VASC ACCESS 06532 Fluoro Time: 6 DAP (Gy m2): 971 Air Kerma (mGy): 2.10 < Continued> CC: Charito Leroy MD Technologist: Todd Andrews [facility] Date/Time: 09/26/2018 (1220) [email or web address] Orig Print D/T: S: 09/26/2018 (1223) PAGE 2 Signed Report - SP FLUORO GUID CTRL ACC DEV 2018-09-26 12:20:00 Name: SIOBHAN BARBOSA [facility] : 1965 Age/S: 53 / F [address] [facility] Unit #: [id number] Loc: [place] [address] Phys: Charito Leroy MD Acct: [id number] Dis Date: Status: ADM IN PHONE #: [phone] Exam Date: 09/26/2018 1143 FAX #: [phone] Reason: EXAMS: CPT CODE: [id number] SP FLUORO GUID CTRL ACC DEV 07960 Fluoro Time: 6 DAP (Gy m2): 971 Air Kerma (mGy): 2.10 REASON FOR EXAM: Acute renal failure Exam Order Date: 09/26/2018 11:33 AM Attending Michelet: Charito Leroy MD PROCEDURE: Fluoroscopic and ultrasound guided right IJ temporary dialysis catheter placement FINDINGS: Prior to the procedure, informed consent was obtained after risks and benefits of the procedure were explained to the patient. The patient agreed and wanted to proceed. The patient was brought to special procedures and placed supine on the table. The right neck and chest wall were prepped and draped in the usual fashion. All elements of maximal sterile barrier technique were followed. Ultrasound showed patency of the right IJ. No thrombus identified, the vein is patent. Images of the vein were submitted to PACS. Under real time ultrasound guidance, a micropuncture needle was used to access the right IJ. A guide wire was inserted. The tract was dilated to accept a temporary dialysis catheter with the tip positioned within the SVC under fluoroscopic guidance. The catheter was sutured to the subcutaneous tissue and is ready for use. MEDICATIONS: 1 mg of Versed, 25 mcg of fentanyl. COMPLICATIONS: None. Blood Loss: less than 5cc Fluoroscopic time:6 sec Fluoroscopic dose:2.1 mGy Number of images obtained: 2 IMPRESSION: right IJ temporary dialysis catheter is ready for use. at 1220 Reported and signed by: Jewel Reyez M.D. PAGE 1 Signed Report (CONTINUED) Name: SIOBHAN BARBOSA [facility] : 1965 Age/S: 53 / F [address] [facility] Unit #: [id number] Loc: [place] [address] Phys: Charito Leroy MD Acct: [id number] Dis Date: Status: ADM IN PHONE #: [phone] Exam Date: 09/26/2018 1143 FAX #: [phone] Reason: EXAMS: CPT CODE: [id number] SP FLUORO GUID CTRL ACC DEV 18221 Fluoro Time: 6 DAP (Gy m2): 971 Air Kerma (mGy): 2.10 <Continued> CC: Charito Leroy MD Technologist: [facility] Date/Time: 09/26/2018 (2347) AnahiL Orig Print D/T: S: 09/26/2018 (8315) PAGE 2 Signed Report - XR CHEST 1 [id number] 12:07:00 FAX: Charito Lowe MD [phone] [place]: St: ADM Name: SIOBHAN ROBERTS [facility] : [birth year] Age/S: 53/F [address] [facility] Unit #: [id number] Loc: V.[address]68 [place] [address] Phys: Jewel Reyez MD Acct: [id number] Dis Date: Status: ADM IN PHONE #: [phone] Exam Date: 09/26/2018 1155 FAX #: [phone] Reason: POST LINE PLACEMENT EXAMS: CPT CODE: [id number] XR CHEST 1 V 85192 REASON FOR EXAM: POST LINE PLACEMENT EXAM ORDER DATE: 09/26/2018 11:42 AM Order ing Michelet: Jewel Reyez MD PROCEDURE: - XR CHEST 1 V COMPARISON: 09/22/2018 FINDINGS: Portable AP frontal view of the est obtained at 11:55 AM shows patchy airspace opacity of the bases. There is no evidence of effusion. The heart size is within normal limits. Pulmo nary vasculatures are minimally congested. IMPRESSION: Ne wly placed right IJ temporary dialysis catheter tip is in the SVC at 1207 Reported and signed by: Jewel Reyez M.D. CC: Charito Leroy MD Technologist: Zoë Bhat (R); Stephany Menijvar RT(R) Trnscrd Date/Time/By: 09/26/2018 (7102) : By: [email or web address] Orig Print D/T: S: 09/26/2018 (8200) PAGE 1 Signed Report BASIC METABOLIC [id number] 05:47:00* Test Item Value Reference Range Comments SODIUM (test code=NA) 142 mmol/L 136-145 POTASSIUM (test code=K) 4.6 mmol/L 3.5-5.1 CHLORIDE (test code=CL) 107.0 mmol/L 98-107 CARBON DIOXIDE (test code=CO2) 22.0 mmol/L 21-32 ANION GAP (test code=GAP) 17.6 10-20 GLUCOSE (test code=GLU) 151 mg/dL 74-106 BLOOD UREA NITROGEN (test code=BUN) 90 mg/dL 7-18 GLOMERULAR FILTRATION RATE (test code=GFR) 15 mL/min >=60 Estimated GFR by using Modified MDRD formula.Chronic kidney disease is defined as either kidney damageor GFR <60 mL/min/1.73 m2 for >3 months. CREATININE (test code=CREAT) 3.20 mg/dL 0.55-1.02 Note change in reference range due to change in reagent. BUN/CREATININE RATIO (test code=BUN/CREA) 28.1 10-20 CALCIUM (test code=CA) 8.5 mg/dL 8.5-10.1 [id number] 05:47:00* Test Item Value Reference Range Comments PHOSPHORUS (test code=PHOS) 5.3 mg/dL 2.5-4.9 [id number] 05:47:00* Test Item Value Reference Range Comments MAGNESIUM (test code=MAG) 2.4 mg/dL 1.8-2.4 CBC W/MANUAL [id number] 05:46:00* Test Item Value Reference Range Comments WHITE BLOOD CELL (test code=WBC) 19.9 K/mm3 4.5-12.5 RED BLOOD CELL (test code=RBC) 2.78 mill/mm3 3.7-5.2 HEMOGLOBIN (test code=HGB) 6.4 gram/dL 11.5-15.5 HEMATOCRIT (test code=HCT) 21.4 % 36.0-46.0 Results called to [id number] by [email or web address] 09/26/18 0533Critical results verified and read back by Nurse? Y MEAN CELL VOLUME (test code=MCV) 77.0 fL 80-98 MEAN CELL HGB (test code=MCH) 23.0 picogram 27.0-33.0 MEAN CELL HGB CONCETRATION (test code=MCHC) 29.9 gram/dL 33.0-36.0 RED CELL DISTRIBUTION WIDTH (test code=RDW) 18.8 % 11.6-16.2 RED CELL DISTRIBUTION WIDTH SD (test code=RDW-SD) 50.2 fL 37.0-51.0 PLATELET COUNT (test code=PLT) 142 K/mm3 150-450 MEAN PLATELET VOLUME (test code=MPV) 12.3 fL 6.7-11.0 IMMATURE GRANULOCYTE % (test code=IG%) 3.7 % 0.0-5.0 NUCLEATED RBC % (test code=NRBC%) 0.4 % 0-0 NEUTROPHIL # (test code=NT#) 16.88 K/mm3 1.8-7.7 IMMATURE GRANULOCYTE # (test code=IG#) 0.73 x10 3/uL 0-0.03 LYMPHOCYTE # (test code=LY#) 1.39 K/mm3 1.0-5.0 MONOCYTE # (test code=MO#) 0.85 K/mm3 0-0.8 EOSINOPHIL # (test code=EO#) 0.00 K/mm3 0.0-0.5 BASOPHIL # (test code=BA#) 0.02 K/mm3 0.0-0.2 NUCLEATED RBC # (test code=NRBC#) 0.08 K/mm3 0.0-0.1 MANUAL DIFF REQUIRED (test code=MDIFF) YES STAIN ACCEPTABILITY (test code=STN ACCEPTABLE) STAIN ACCEPTABLE TOTAL CELLS COUNTED (test code=TCC) 114 #CELLS SEGMENTED NEUTROPHILS (test code=SEG) 93.0 % 39-69 BAND NEUTROPHIL (test code=BAND) 0 % 0-10 LYMPHOCYTE (test code=LYMPH) 3.5 % 25-55 REACTIVE LYMPH (test code=RELYMPH) 0 % MONOCYTE (test code=MON) 3.5 % 0-10 EOSINOPHIL (test code=EOS) 0 % 0.0-5.0 BASOPHIL (test code=BASO) 0 % 0-1.0 METAMYELOCYTE (test code=META) 0 % 0-0 MYELOCYTE (test code=MYELO) 0 % 0.0-0.0 PROMYELOCYTE (test code=PROM) 0 % 0-0 POLYCHROMASIA (test code=POLC) 1+ HYPOCHROMIA (test code=HYPO) 2+ POIKILOCYTOSIS (test code=POIK) 1+ ANISOCYTOSIS (test code=ANISO) 1+ MACROCYTOSIS (test code=MACR) 1+ TARGET CELLS (test code=TGT) 1+ PLATELET ESTIMATE (test code=PLTEST) ADEQUATE PLATELET MORPHOLOGY (test code=PLTMORPH) NORMAL IMMATURE FORMS (test code=IMMAT) 0 % BASIC METABOLIC [id number] 05:44:00* Test Item Value Reference Range Comments SODIUM (test code=NA) 142 mmol/L 136-145 POTASSIUM (test code=K) 4.6 mmol/L 3.5-5.1 CHLORIDE (test code=CL) 107.0 mmol/L 98-107 CARBON DIOXIDE (test code=CO2) mmol/L 21-32 ANION GAP (test code=GAP) 10-20 GLUCOSE (test code=GLU) mg/dL 74-106 BLOOD UREA NITROGEN (test code=BUN) mg/dL 7-18 GLOMERULAR FILTRATION RATE (test code=GFR) mL/min >=60 CREATININE (test code=CREAT) mg/dL 0.55-1.02 BUN/CREATININE RATIO (test code=BUN/CREA) 10-20 CALCIUM (test code=CA) 8.5 mg/dL 8.5-10.1 [id number] 05:44:00* Test Item Value Reference Range Comments PHOSPHORUS (test code=PHOS) mg/dL 2.5-4.9 [id number] 05:44:00* Test Item Value Reference Range Comments MAGNESIUM (test code=MAG) mg/dL 1.8-2.4 PROTHROMBIN [id number] 05:39:00* Test Item Value Reference Range Comments PROTHROMBIN TIME PATIENT (test code=PTP) 15.3 seconds 9.0-14.0 INTERNATIONAL NORMAL RATIO (test code=INR) 1.3 0.8-1.2 The therapeutic range for oral anticoagulant therapy formost indications is an international normalized ratio (INR)of between 2.0 and 3.0. The recommended therapeutic INRrange for various clinical situations is listed below: Clinical Situation INR range Pulmonary e mbolism treatment (2.0-3.0)Venous thrombosis treatmentVenous thrombosis prophylaxis (high risk surgery)Prevention of systemic embolism from: Acute myocardial infarction Valvular heart disease Atrial fibrillation Mechanical prosthetic heart valves (2.5-3.5) IS PATIENT ON ANTICOAGULANTS? PRBC W/MANUAL [id number] 05:33:00* Test Item Value Reference Range Comments WHITE BLOOD CELL (test code=WBC) 19.9 K/mm3 4.5-12.5 RED BLOOD CELL (test code=RBC) 2.78 mill/mm3 3.7-5.2 HEMOGLOBIN (test code=HGB) 6.4 gram/dL 11.5-15.5 HEMATOCRIT (test code=HCT) 21.4 % 36.0-46.0 Results called to [id number] by [email or web address] 09/26/18 0533Critical results verified and read back by Nurse? Y MEAN CELL VOLUME (test code=MCV) 77.0 fL 80-98 MEAN CELL HGB (test code=MCH) 23.0 picogram 27.0-33.0 MEAN CELL HGB CONCETRATION (test code=MCHC) 29.9 gram/dL 33.0-36.0 RED CELL DISTRIBUTION WIDTH (test code=RDW) 18.8 % 11.6-16.2 RED CELL DISTRIBUTION WIDTH SD (test code=RDW-SD) 50.2 fL 37.0-51.0 PLATELET COUNT (test code=PLT) 142 K/mm3 150-450 MEAN PLATELET VOLUME (test code=MPV) 12.3 fL 6.7-11.0 IMMATURE GRANULOCYTE % (test code=IG%) 3.7 % 0.0-5.0 NUCLEATED RBC % (test code=NRBC%) 0.4 % 0-0 NEUTROPHIL # (test code=NT#) 16.88 K/mm3 1.8-7.7 IMMATURE GRANULOCYTE # (test code=IG#) 0.73 x10 3/uL 0-0.03 LYMPHOCYTE # (test code=LY#) 1.39 K/mm3 1.0-5.0 MONOCYTE # (test code=MO#) 0.85 K/mm3 0-0.8 EOSINOPHIL # (test code=EO#) 0.00 K/mm3 0.0-0.5 BASOPHIL # (test code=BA#) 0.02 K/mm3 0.0-0.2 NUCLEATED RBC # (test code=NRBC#) 0.08 K/mm3 0.0-0.1 MANUAL DIFF REQUIRED (test code=MDIFF) YES STAIN ACCEPTABILITY (test code=STN ACCEPTABLE) TOTAL CELLS COUNTED (test code=TCC) #CELLS SEGMENTED NEUTROPHILS (test code=SEG) % 39-69 LYMPHOCYTE (test code=LYMPH) % 25-55 MONOCYTE (test code=MON) % 0-10 EOSINOPHIL (test code=EOS) % 0.0-5.0 CABOT RINGS (test code=CAB) MORPHOLOGY COMMENT (test code=MOC) PLATELET ESTIMATE (test code=PLTEST) PLATELET MORPHOLOGY (test code=PLTMORPH) CBC W/MANUAL [id number] 05:33:00* Test Item Value Reference Range Comments WHITE BLOOD CELL (test code=WBC) 19.9 K/mm3 4.5-12.5 RED BLOOD CELL (test code=RBC) 2.78 mill/mm3 3.7-5.2 HEMOGLOBIN (test code=HGB) 6.4 gram/dL 11.5-15.5 HEMATOCRIT (test code=HCT) 21.4 % 36.0-46.0 Results called to [id number] by [email or web address] 09/26/18 0533Critical results verified and read back by Nurse? Y MEAN CELL VOLUME (test code=MCV) 77.0 fL 80-98 MEAN CELL HGB (test code=MCH) 23.0 picogram 27.0-33.0 MEAN CELL HGB CONCETRATION (test code=MCHC) 29.9 gram/dL 33.0-36.0 RED CELL DISTRIBUTION WIDTH (test code=RDW) 18.8 % 11.6-16.2 RED CELL DISTRIBUTION WIDTH SD (test code=RDW-SD) 50.2 fL 37.0-51.0 PLATELET COUNT (test code=PLT) 142 K/mm3 150-450 MEAN PLATELET VOLUME (test code=MPV) 12.3 fL 6.7-11.0 IMMATURE GRANULOCYTE % (test code=IG%) 3.7 % 0.0-5.0 NUCLEATED RBC % (test code=NRBC%) 0.4 % 0-0 NEUTROPHIL # (test code=NT#) 16.88 K/mm3 1.8-7.7 IMMATURE GRANULOCYTE # (test code=IG#) 0.73 x10 3/uL 0-0.03 LYMPHOCYTE # (test code=LY#) 1.39 K/mm3 1.0-5.0 MONOCYTE # (test code=MO#) 0.85 K/mm3 0-0.8 EOSINOPHIL # (test code=EO#) 0.00 K/mm3 0.0-0.5 BASOPHIL # (test code=BA#) 0.02 K/mm3 0.0-0.2 NUCLEATED RBC # (test code=NRBC#) 0.08 K/mm3 0.0-0.1 MANUAL DIFF REQUIRED (test code=MDIFF) YES STAIN ACCEPTABILITY (test code=STN ACCEPTABLE) TOTAL CELLS COUNTED (test code=TCC) #CELLS SEGMENTED NEUTROPHILS (test code=SEG) % 39-69 LYMPHOCYTE (test code=LYMPH) % 25-55 MONOCYTE (test code=MON) % 0-10 EOSINOPHIL (test code=EOS) % 0.0-5.0 CABOT RINGS (test code=CAB) MORPHOLOGY COMMENT (test code=MOC) PLATELET ESTIMATE (test code=PLTEST) PLATELET MORPHOLOGY (test code=PLTMORPH) CBC W/MANUAL [id number] 05:33:00* Test Item Value Reference Range Comments WHITE BLOOD CELL (test code=WBC) 19.9 K/mm3 4.5-12.5 RED BLOOD CELL (test code=RBC) 2.78 mill/mm3 3.7-5.2 HEMOGLOBIN (test code=HGB) 6.4 gram/dL 11.5-15.5 HEMATOCRIT (test code=HCT) 21.4 % 36.0-46.0 Results called to [id number] by [email or web address] 09/26/18 0533Critical results verified and read back by Nurse? Y MEAN CELL VOLUME (test code=MCV) 77.0 fL 80-98 MEAN CELL HGB (test code=MCH) 23.0 picogram 27.0-33.0 MEAN CELL HGB CONCETRATION (test code=MCHC) 29.9 gram/dL 33.0-36.0 RED CELL DISTRIBUTION WIDTH (test code=RDW) 18.8 % 11.6-16.2 RED CELL DISTRIBUTION WIDTH SD (test code=RDW-SD) 50.2 fL 37.0-51.0 PLATELET COUNT (test code=PLT) 142 K/mm3 150-450 MEAN PLATELET VOLUME (test code=MPV) 12.3 fL 6.7-11.0 IMMATURE GRANULOCYTE % (test code=IG%) 3.7 % 0.0-5.0 NUCLEATED RBC % (test code=NRBC%) 0.4 % 0-0 NEUTROPHIL # (test code=NT#) 16.88 K/mm3 1.8-7.7 IMMATURE GRANULOCYTE # (test code=IG#) 0.73 x10 3/uL 0-0.03 LYMPHOCYTE # (test code=LY#) 1.39 K/mm3 1.0-5.0 MONOCYTE # (test code=MO#) 0.85 K/mm3 0-0.8 EOSINOPHIL # (test code=EO#) 0.00 K/mm3 0.0-0.5 BASOPHIL # (test code=BA#) 0.02 K/mm3 0.0-0.2 NUCLEATED RBC # (test code=NRBC#) 0.08 K/mm3 0.0-0.1 MANUAL DIFF REQUIRED (test code=MDIFF) YES STAIN ACCEPTABILITY (test code=STN ACCEPTABLE) TOTAL CELLS COUNTED (test code=TCC) #CELLS SEGMENTED NEUTROPHILS (test code=SEG) % 39-69 LYMPHOCYTE (test code=LYMPH) % 25-55 MONOCYTE (test code=MON) % 0-10 EOSINOPHIL (test code=EOS) % 0.0-5.0 MORPHOLOGY COMMENT (test code=MOC) PLATELET ESTIMATE (test code=PLTEST) PLATELET MORPHOLOGY (test code=PLTMORPH) CBC W/MANUAL [id number] 05:33:00* Test Item Value Reference Range Comments WHITE BLOOD CELL (test code=WBC) 19.9 K/mm3 4.5-12.5 RED BLOOD CELL (test code=RBC) 2.78 mill/mm3 3.7-5.2 HEMOGLOBIN (test code=HGB) 6.4 gram/dL 11.5-15.5 HEMATOCRIT (test code=HCT) 21.4 % 36.0-46.0 Results called to [id number] by [email or web address] 09/26/18 0533Critical results verified and read back by Nurse? Y MEAN CELL VOLUME (test code=MCV) 77.0 fL 80-98 MEAN CELL HGB (test code=MCH) 23.0 picogram 27.0-33.0 MEAN CELL HGB CONCETRATION (test code=MCHC) 29.9 gram/dL 33.0-36.0 RED CELL DISTRIBUTION WIDTH (test code=RDW) 18.8 % 11.6-16.2 RED CELL DISTRIBUTION WIDTH SD (test code=RDW-SD) 50.2 fL 37.0-51.0 PLATELET COUNT (test code=PLT) 142 K/mm3 150-450 MEAN PLATELET VOLUME (test code=MPV) 12.3 fL 6.7-11.0 IMMATURE GRANULOCYTE % (test code=IG%) 3.7 % 0.0-5.0 NUCLEATED RBC % (test code=NRBC%) 0.4 % 0-0 NEUTROPHIL # (test code=NT#) 16.88 K/mm3 1.8-7.7 IMMATURE GRANULOCYTE # (test code=IG#) 0.73 x10 3/uL 0-0.03 LYMPHOCYTE # (test code=LY#) 1.39 K/mm3 1.0-5.0 MONOCYTE # (test code=MO#) 0.85 K/mm3 0-0.8 EOSINOPHIL # (test code=EO#) 0.00 K/mm3 0.0-0.5 BASOPHIL # (test code=BA#) 0.02 K/mm3 0.0-0.2 NUCLEATED RBC # (test code=NRBC#) 0.08 K/mm3 0.0-0.1 MANUAL DIFF REQUIRED (test code=MDIFF) YES STAIN ACCEPTABILITY (test code=STN ACCEPTABLE) TOTAL CELLS COUNTED (test code=TCC) #CELLS SEGMENTED NEUTROPHILS (test code=SEG) % 39-69 LYMPHOCYTE (test code=LYMPH) % 25-55 MONOCYTE (test code=MON) % 0-10 MORPHOLOGY COMMENT (test code=MOC) PLATELET ESTIMATE (test code=PLTEST) PLATELET MORPHOLOGY (test code=PLTMORPH) CBC W/MANUAL [id number] 05:33:00* Test Item Value Reference Range Comments WHITE BLOOD CELL (test code=WBC) 19.9 K/mm3 4.5-12.5 RED BLOOD CELL (test code=RBC) 2.78 mill/mm3 3.7-5.2 HEMOGLOBIN (test code=HGB) 6.4 gram/dL 11.5-15.5 HEMATOCRIT (test code=HCT) 21.4 % 36.0-46.0 Results called to [id number] by [email or web address] 09/26/18 0533Critical results verified and read back by Nurse? Y MEAN CELL VOLUME (test code=MCV) 77.0 fL 80-98 MEAN CELL HGB (test code=MCH) 23.0 picogram 27.0-33.0 MEAN CELL HGB CONCETRATION (test code=MCHC) 29.9 gram/dL 33.0-36.0 RED CELL DISTRIBUTION WIDTH (test code=RDW) 18.8 % 11.6-16.2 RED CELL DISTRIBUTION WIDTH SD (test code=RDW-SD) 50.2 fL 37.0-51.0 PLATELET COUNT (test code=PLT) 142 K/mm3 150-450 MEAN PLATELET VOLUME (test code=MPV) 12.3 fL 6.7-11.0 IMMATURE GRANULOCYTE % (test code=IG%) 3.7 % 0.0-5.0 NUCLEATED RBC % (test code=NRBC%) 0.4 % 0-0 NEUTROPHIL # (test code=NT#) 16.88 K/mm3 1.8-7.7 IMMATURE GRANULOCYTE # (test code=IG#) 0.73 x10 3/uL 0-0.03 LYMPHOCYTE # (test code=LY#) 1.39 K/mm3 1.0-5.0 MONOCYTE # (test code=MO#) 0.85 K/mm3 0-0.8 EOSINOPHIL # (test code=EO#) 0.00 K/mm3 0.0-0.5 BASOPHIL # (test code=BA#) 0.02 K/mm3 0.0-0.2 NUCLEATED RBC # (test code=NRBC#) 0.08 K/mm3 0.0-0.1 MANUAL DIFF REQUIRED (test code=MDIFF) YES STAIN ACCEPTABILITY (test code=STN ACCEPTABLE) TOTAL CELLS COUNTED (test code=TCC) #CELLS SEGMENTED NEUTROPHILS (test code=SEG) % 39-69 LYMPHOCYTE (test code=LYMPH) % 25-55 MONOCYTE (test code=MON) % 0-10 EOSINOPHIL (test code=EOS) % 0.0-5.0 CABOT RINGS (test code=CAB) MORPHOLOGY COMMENT (test code=MOC) PLATELET ESTIMATE (test code=PLTEST) PLATELET MORPHOLOGY (test code=PLTMORPH) AG HEPAT B [id number] 20:08:00* Test Item Value Reference Range Comments AG HEPAT B SURF (test code=HBSAG) Nonreactive Index Nonreactive CBC W/MANUAL [id number] 05:40:00* Test Item Value Reference Range Comments WHITE BLOOD CELL (test code=WBC) 25.6 K/mm3 4.5-12.5 RED BLOOD CELL (test code=RBC) 3.03 mill/mm3 3.7-5.2 HEMOGLOBIN (test code=HGB) 7.1 gram/dL 11.5-15.5 HEMATOCRIT (test code=HCT) 23.2 % 36.0-46.0 MEAN CELL VOLUME (test code=MCV) 76.6 fL 80-98 MEAN CELL HGB (test code=MCH) 23.4 picogram 27.0-33.0 MEAN CELL HGB CONCETRATION (test code=MCHC) 30.6 gram/dL 33.0-36.0 RED CELL DISTRIBUTION WIDTH (test code=RDW) 18.4 % 11.6-16.2 RED CELL DISTRIBUTION WIDTH SD (test code=RDW-SD) 49.6 fL 37.0-51.0 PLATELET COUNT (test code=PLT) 173 K/mm3 150-450 MEAN PLATELET VOLUME (test code=MPV) 13.7 fL 6.7-11.0 IMMATURE GRANULOCYTE % (test code=IG%) 2.5 % 0.0-5.0 NUCLEATED RBC % (test code=NRBC%) 0.2 % 0-0 NEUTROPHIL # (test code=NT#) 22.76 K/mm3 1.8-7.7 IMMATURE GRANULOCYTE # (test code=IG#) 0.65 x10 3/uL 0-0.03 LYMPHOCYTE # (test code=LY#) 1.11 K/mm3 1.0-5.0 MONOCYTE # (test code=MO#) 1.02 K/mm3 0-0.8 EOSINOPHIL # (test code=EO#) 0.00 K/mm3 0.0-0.5 BASOPHIL # (test code=BA#) 0.03 K/mm3 0.0-0.2 NUCLEATED RBC # (test code=NRBC#) 0.06 K/mm3 0.0-0.1 MANUAL DIFF REQUIRED (test code=MDIFF) YES STAIN ACCEPTABILITY (test code=STN ACCEPTABLE) STAIN ACCEPTABLE TOTAL CELLS COUNTED (test code=TCC) 114 #CELLS SEGMENTED NEUTROPHILS (test code=SEG) 93.0 % 39-69 BAND NEUTROPHIL (test code=BAND) 0 % 0-10 LYMPHOCYTE (test code=LYMPH) 3.5 % 25-55 REACTIVE LYMPH (test code=RELYMPH) 0 % MONOCYTE (test code=MON) 3.5 % 0-10 EOSINOPHIL (test code=EOS) 0 % 0.0-5.0 BASOPHIL (test code=BASO) 0 % 0-1.0 METAMYELOCYTE (test code=META) 0 % 0-0 MYELOCYTE (test code=MYELO) 0 % 0.0-0.0 PROMYELOCYTE (test code=PROM) 0 % 0-0 HYPOCHROMIA (test code=HYPO) 1+ ANISOCYTOSIS (test code=ANISO) 1+ PLATELET ESTIMATE (test code=PLTEST) ADEQUATE PLATELET MORPHOLOGY (test code=PLTMORPH) NORMAL IMMATURE FORMS (test code=IMMAT) 0 % BASIC METABOLIC [id number] 05:38:00* Test Item Value Reference Range Comments SODIUM (test code=NA) 138 mmol/L 136-145 POTASSIUM (test code=K) 5.2 mmol/L 3.5-5.1 CHLORIDE (test code=CL) 104.0 mmol/L 98-107 CARBON DIOXIDE (test code=CO2) 24.0 mmol/L 21-32 ANION GAP (test code=GAP) 15.2 10-20 GLUCOSE (test code=GLU) 180 mg/dL 74-106 BLOOD UREA NITROGEN (test code=BUN) 91 mg/dL 7-18 GLOMERULAR FILTRATION RATE (test code=GFR) 14 mL/min >=60 Estimated GFR by using Modified MDRD formula.Chronic kidney disease is defined as either kidney damageor GFR <60 mL/min/1.73 m2 for >3 months. CREATININE (test code=CREAT) 3.50 mg/dL 0.55-1.02 Note change in reference range due to change in reagent. BUN/CREATININE RATIO (test code=BUN/CREA) 26.0 10-20 CALCIUM (test code=CA) 8.8 mg/dL 8.5-10.1 BASIC METABOLIC [id number] 05:26:00* Test Item Value Reference Range Comments SODIUM (test code=NA) 138 mmol/L 136-145 POTASSIUM (test code=K) 5.2 mmol/L 3.5-5.1 CHLORIDE (test code=CL) 104.0 mmol/L 98-107 CARBON DIOXIDE (test code=CO2) mmol/L 21-32 ANION GAP (test code=GAP) 10-20 GLUCOSE (test code=GLU) mg/dL 74-106 BLOOD UREA NITROGEN (test code=BUN) mg/dL 7-18 GLOMERULAR FILTRATION RATE (test code=GFR) mL/min >=60 CREATININE (test code=CREAT) mg/dL 0.55-1.02 BUN/CREATININE RATIO (test code=BUN/CREA) 10-20 CALCIUM (test code=CA) mg/dL 8.5-10.1 CBC W/MANUAL [id number] 05:20:00* Test Item Value Reference Range Comments WHITE BLOOD CELL (test code=WBC) 25.6 K/mm3 4.5-12.5 RED BLOOD CELL (test code=RBC) 3.03 mill/mm3 3.7-5.2 HEMOGLOBIN (test code=HGB) 7.1 gram/dL 11.5-15.5 HEMATOCRIT (test code=HCT) 23.2 % 36.0-46.0 MEAN CELL VOLUME (test code=MCV) 76.6 fL 80-98 MEAN CELL HGB (test code=MCH) 23.4 picogram 27.0-33.0 MEAN CELL HGB CONCETRATION (test code=MCHC) 30.6 gram/dL 33.0-36.0 RED CELL DISTRIBUTION WIDTH (test code=RDW) 18.4 % 11.6-16.2 RED CELL DISTRIBUTION WIDTH SD (test code=RDW-SD) 49.6 fL 37.0-51.0 PLATELET COUNT (test code=PLT) 173 K/mm3 150-450 MEAN PLATELET VOLUME (test code=MPV) 13.7 fL 6.7-11.0 IMMATURE GRANULOCYTE % (test code=IG%) 2.5 % 0.0-5.0 NUCLEATED RBC % (test code=NRBC%) 0.2 % 0-0 NEUTROPHIL # (test code=NT#) 22.76 K/mm3 1.8-7.7 IMMATURE GRANULOCYTE # (test code=IG#) 0.65 x10 3/uL 0-0.03 LYMPHOCYTE # (test code=LY#) 1.11 K/mm3 1.0-5.0 MONOCYTE # (test code=MO#) 1.02 K/mm3 0-0.8 EOSINOPHIL # (test code=EO#) 0.00 K/mm3 0.0-0.5 BASOPHIL # (test code=BA#) 0.03 K/mm3 0.0-0.2 NUCLEATED RBC # (test code=NRBC#) 0.06 K/mm3 0.0-0.1 MANUAL DIFF REQUIRED (test code=MDIFF) YES STAIN ACCEPTABILITY (test code=STN ACCEPTABLE) TOTAL CELLS COUNTED (test code=TCC) #CELLS SEGMENTED NEUTROPHILS (test code=SEG) % 39-69 LYMPHOCYTE (test code=LYMPH) % 25-55 MONOCYTE (test code=MON) % 0-10 EOSINOPHIL (test code=EOS) % 0.0-5.0 CABOT RINGS (test code=CAB) MORPHOLOGY COMMENT (test code=MOC) PLATELET ESTIMATE (test code=PLTEST) PLATELET MORPHOLOGY (test code=PLTMORPH) CBC W/MANUAL [id number] 05:20:00* Test Item Value Reference Range Comments WHITE BLOOD CELL (test code=WBC) 25.6 K/mm3 4.5-12.5 RED BLOOD CELL (test code=RBC) 3.03 mill/mm3 3.7-5.2 HEMOGLOBIN (test code=HGB) 7.1 gram/dL 11.5-15.5 HEMATOCRIT (test code=HCT) 23.2 % 36.0-46.0 MEAN CELL VOLUME (test code=MCV) 76.6 fL 80-98 MEAN CELL HGB (test code=MCH) 23.4 picogram 27.0-33.0 MEAN CELL HGB CONCETRATION (test code=MCHC) 30.6 gram/dL 33.0-36.0 RED CELL DISTRIBUTION WIDTH (test code=RDW) 18.4 % 11.6-16.2 RED CELL DISTRIBUTION WIDTH SD (test code=RDW-SD) 49.6 fL 37.0-51.0 PLATELET COUNT (test code=PLT) 173 K/mm3 150-450 MEAN PLATELET VOLUME (test code=MPV) 13.7 fL 6.7-11.0 IMMATURE GRANULOCYTE % (test code=IG%) 2.5 % 0.0-5.0 NUCLEATED RBC % (test code=NRBC%) 0.2 % 0-0 NEUTROPHIL # (test code=NT#) 22.76 K/mm3 1.8-7.7 IMMATURE GRANULOCYTE # (test code=IG#) 0.65 x10 3/uL 0-0.03 LYMPHOCYTE # (test code=LY#) 1.11 K/mm3 1.0-5.0 MONOCYTE # (test code=MO#) 1.02 K/mm3 0-0.8 EOSINOPHIL # (test code=EO#) 0.00 K/mm3 0.0-0.5 BASOPHIL # (test code=BA#) 0.03 K/mm3 0.0-0.2 NUCLEATED RBC # (test code=NRBC#) 0.06 K/mm3 0.0-0.1 MANUAL DIFF REQUIRED (test code=MDIFF) YES STAIN ACCEPTABILITY (test code=STN ACCEPTABLE) TOTAL CELLS COUNTED (test code=TCC) #CELLS SEGMENTED NEUTROPHILS (test code=SEG) % 39-69 LYMPHOCYTE (test code=LYMPH) % 25-55 MONOCYTE (test code=MON) % 0-10 EOSINOPHIL (test code=EOS) % 0.0-5.0 CABOT RINGS (test code=CAB) MORPHOLOGY COMMENT (test code=MOC) PLATELET ESTIMATE (test code=PLTEST) PLATELET MORPHOLOGY (test code=PLTMORPH) CBC W/MANUAL [id number] 05:20:00* Test Item Value Reference Range Comments WHITE BLOOD CELL (test code=WBC) 25.6 K/mm3 4.5-12.5 RED BLOOD CELL (test code=RBC) 3.03 mill/mm3 3.7-5.2 HEMOGLOBIN (test code=HGB) 7.1 gram/dL 11.5-15.5 HEMATOCRIT (test code=HCT) 23.2 % 36.0-46.0 MEAN CELL VOLUME (test code=MCV) 76.6 fL 80-98 MEAN CELL HGB (test code=MCH) 23.4 picogram 27.0-33.0 MEAN CELL HGB CONCETRATION (test code=MCHC) 30.6 gram/dL 33.0-36.0 RED CELL DISTRIBUTION WIDTH (test code=RDW) 18.4 % 11.6-16.2 RED CELL DISTRIBUTION WIDTH SD (test code=RDW-SD) 49.6 fL 37.0-51.0 PLATELET COUNT (test code=PLT) 173 K/mm3 150-450 MEAN PLATELET VOLUME (test code=MPV) 13.7 fL 6.7-11.0 IMMATURE GRANULOCYTE % (test code=IG%) 2.5 % 0.0-5.0 NUCLEATED RBC % (test code=NRBC%) 0.2 % 0-0 NEUTROPHIL # (test code=NT#) 22.76 K/mm3 1.8-7.7 IMMATURE GRANULOCYTE # (test code=IG#) 0.65 x10 3/uL 0-0.03 LYMPHOCYTE # (test code=LY#) 1.11 K/mm3 1.0-5.0 MONOCYTE # (test code=MO#) 1.02 K/mm3 0-0.8 EOSINOPHIL # (test code=EO#) 0.00 K/mm3 0.0-0.5 BASOPHIL # (test code=BA#) 0.03 K/mm3 0.0-0.2 NUCLEATED RBC # (test code=NRBC#) 0.06 K/mm3 0.0-0.1 MANUAL DIFF REQUIRED (test code=MDIFF) YES STAIN ACCEPTABILITY (test code=STN ACCEPTABLE) TOTAL CELLS COUNTED (test code=TCC) #CELLS SEGMENTED NEUTROPHILS (test code=SEG) % 39-69 LYMPHOCYTE (test code=LYMPH) % 25-55 MONOCYTE (test code=MON) % 0-10 EOSINOPHIL (test code=EOS) % 0.0-5.0 MORPHOLOGY COMMENT (test code=MOC) PLATELET ESTIMATE (test code=PLTEST) PLATELET MORPHOLOGY (test code=PLTMORPH) CBC W/MANUAL [id number] 05:20:00* Test Item Value Reference Range Comments WHITE BLOOD CELL (test code=WBC) 25.6 K/mm3 4.5-12.5 RED BLOOD CELL (test code=RBC) 3.03 mill/mm3 3.7-5.2 HEMOGLOBIN (test code=HGB) 7.1 gram/dL 11.5-15.5 HEMATOCRIT (test code=HCT) 23.2 % 36.0-46.0 MEAN CELL VOLUME (test code=MCV) 76.6 fL 80-98 MEAN CELL HGB (test code=MCH) 23.4 picogram 27.0-33.0 MEAN CELL HGB CONCETRATION (test code=MCHC) 30.6 gram/dL 33.0-36.0 RED CELL DISTRIBUTION WIDTH (test code=RDW) 18.4 % 11.6-16.2 RED CELL DISTRIBUTION WIDTH SD (test code=RDW-SD) 49.6 fL 37.0-51.0 PLATELET COUNT (test code=PLT) 173 K/mm3 150-450 MEAN PLATELET VOLUME (test code=MPV) 13.7 fL 6.7-11.0 IMMATURE GRANULOCYTE % (test code=IG%) 2.5 % 0.0-5.0 NUCLEATED RBC % (test code=NRBC%) 0.2 % 0-0 NEUTROPHIL # (test code=NT#) 22.76 K/mm3 1.8-7.7 IMMATURE GRANULOCYTE # (test code=IG#) 0.65 x10 3/uL 0-0.03 LYMPHOCYTE # (test code=LY#) 1.11 K/mm3 1.0-5.0 MONOCYTE # (test code=MO#) 1.02 K/mm3 0-0.8 EOSINOPHIL # (test code=EO#) 0.00 K/mm3 0.0-0.5 BASOPHIL # (test code=BA#) 0.03 K/mm3 0.0-0.2 NUCLEATED RBC # (test code=NRBC#) 0.06 K/mm3 0.0-0.1 MANUAL DIFF REQUIRED (test code=MDIFF) YES STAIN ACCEPTABILITY (test code=STN ACCEPTABLE) TOTAL CELLS COUNTED (test code=TCC) #CELLS SEGMENTED NEUTROPHILS (test code=SEG) % 39-69 LYMPHOCYTE (test code=LYMPH) % 25-55 MONOCYTE (test code=MON) % 0-10 MORPHOLOGY COMMENT (test code=MOC) PLATELET ESTIMATE (test code=PLTEST) PLATELET MORPHOLOGY (test code=PLTMORPH) CBC W/MANUAL [id number] 05:20:00* Test Item Value Reference Range Comments WHITE BLOOD CELL (test code=WBC) 25.6 K/mm3 4.5-12.5 RED BLOOD CELL (test code=RBC) 3.03 mill/mm3 3.7-5.2 HEMOGLOBIN (test code=HGB) 7.1 gram/dL 11.5-15.5 HEMATOCRIT (test code=HCT) 23.2 % 36.0-46.0 MEAN CELL VOLUME (test code=MCV) 76.6 fL 80-98 MEAN CELL HGB (test code=MCH) 23.4 picogram 27.0-33.0 MEAN CELL HGB CONCETRATION (test code=MCHC) 30.6 gram/dL 33.0-36.0 RED CELL DISTRIBUTION WIDTH (test code=RDW) 18.4 % 11.6-16.2 RED CELL DISTRIBUTION WIDTH SD (test code=RDW-SD) 49.6 fL 37.0-51.0 PLATELET COUNT (test code=PLT) 173 K/mm3 150-450 MEAN PLATELET VOLUME (test code=MPV) 13.7 fL 6.7-11.0 IMMATURE GRANULOCYTE % (test code=IG%) 2.5 % 0.0-5.0 NUCLEATED RBC % (test code=NRBC%) 0.2 % 0-0 NEUTROPHIL # (test code=NT#) 22.76 K/mm3 1.8-7.7 IMMATURE GRANULOCYTE # (test code=IG#) 0.65 x10 3/uL 0-0.03 LYMPHOCYTE # (test code=LY#) 1.11 K/mm3 1.0-5.0 MONOCYTE # (test code=MO#) 1.02 K/mm3 0-0.8 EOSINOPHIL # (test code=EO#) 0.00 K/mm3 0.0-0.5 BASOPHIL # (test code=BA#) 0.03 K/mm3 0.0-0.2 NUCLEATED RBC # (test code=NRBC#) 0.06 K/mm3 0.0-0.1 MANUAL DIFF REQUIRED (test code=MDIFF) YES STAIN ACCEPTABILITY (test code=STN ACCEPTABLE) TOTAL CELLS COUNTED (test code=TCC) #CELLS SEGMENTED NEUTROPHILS (test code=SEG) % 39-69 LYMPHOCYTE (test code=LYMPH) % 25-55 MONOCYTE (test code=MON) % 0-10 EOSINOPHIL (test code=EOS) % 0.0-5.0 CABOT RINGS (test code=CAB) MORPHOLOGY COMMENT (test code=MOC) PLATELET ESTIMATE (test code=PLTEST) PLATELET MORPHOLOGY (test code=PLTMORPH) BODY FLUID CELL [id number] 14:45:00* Test Item Value Reference Range Comments FLUID SOURCE (test code=SOURCEFL) LEFT PERINEPHRIC ABSCESS DRAINAGE FLUID COLOR (test code=COLFL) RED COLORLESS FLUID APPEARANCE (test code=APPFL) CLOUDY FLUID WBC AUTO (test code=WBCFLA) 91786 cells/uL FLUID RBC AUTO (test code=RBCFLA) [id number] cells/uL FLUID TOTAL CELLS (test code=TCFL) 48591 cells/uL >0 Fluid WBC RBC Type cells/uL cells/uL CSF (0-5) n/a Peritoneal n/a n/a Pleural n/a n/a Synovial <200 n/a CSF (0-30) n/a FLUID COMMENT (test code=COMFL) PATHOLOGST.TO REVIEW TOTAL CELLS COUNTED ON DIFF (test code=TOTCELLFL) cells DEGENERATIVE CELLS, UNABLE TO DEIFFERENTIATE REVIEWED BY (test code=REVIEW) PATHOLOGIST Reviewed by Dr Janna AmbrocioATING WHITE BLOOD CELLSAPPEAR TO BE MOSTLY POLYS SPECIMEN COMMENTS: LEFT PERINEPHRIC ABSCESS DRAINAGESPECIMEN COMMENTS: LEFT HALIE NEPHRIC ABSCESS DRAINAGE.FLUID CREATININE [id number] 14:45:00* Test Item Value Reference Range Comments FLUID CREATININE (test code=CREATF) 1.3 SPECIMEN COMMENTS: LEFT PERINEPHRIC ABSCESS DRAINAGESPECIMEN COMMENTS: LEFT HALIE NEPHRIC ABSCESS DRAINAGE.LACTIC [id number] 14:37:00* Test Item Value Reference Range Comments LACTIC ACID (test code=LACT) 2.3 mmol/L 0.4-1.9 Results called to [id number] by GSIELLE 09/24/18 1437Critical results verified and read back by Nurse? Y PROCALCITONIN (PCT)2018-09-24 12:10:00* Test Item Value Reference Range Comments PROCALCITONIN (PCT) (test code=PROCAL) 61.48 ng/ml Results called to [id number] by GISELLE 09/24/18 1210Critical results verified and read back by Nurse? YConcentration Interpretation (ng/mL) <0.51 Sepsis is not likely. Local bacterial infection is possible. (LOW RISK for progression to Sepsis) 0.51 - 2.00 Sepsis is possible, but other conditions are known to elevate PCT as well. (MODERATE RISK for progression to Sepsis) > 2.00 Sepsis is likely, unless other causes are known. (HIGH RISK for progression to Severe Sepsis or Septic Shock) 10.00 High likelihood of Severe Sepsis or Septic or higher Shock. *Increased PCT levels may not always be related to systemic bacterial infection.*Low PCT levels do not automatically exclude the presence of bacterial infection.*All results should be interpreted taking into account the patients history. BASIC METABOLIC [id number] 11:53:00* Test Item Value Reference Range Comments SODIUM (test code=NA) 139 mmol/L 136-145 POTASSIUM (test code=K) 5.5 mmol/L 3.5-5.1 CHLORIDE (test code=CL) 107.0 mmol/L 98-107 CARBON DIOXIDE (test code=CO2) 19.0 mmol/L 21-32 ANION GAP (test code=GAP) 18.5 10-20 GLUCOSE (test code=GLU) 177 mg/dL 74-106 BLOOD UREA NITROGEN (test code=BUN) 77 mg/dL 7-18 GLOMERULAR FILTRATION RATE (test code=GFR) 15 mL/min >=60 Estimated GFR by using Modified MDRD formula.Chronic kidney disease is defined as either kidney damageor GFR <60 mL/min/1.73 m2 for >3 months. CREATININE (test code=CREAT) 3.20 mg/dL 0.55-1.02 Note change in reference range due to change in reagent. BUN/CREATININE RATIO (test code=BUN/CREA) 24.1 10-20 CALCIUM (test code=CA) 8.9 mg/dL 8.5-10.1 CBC W/AUTO [id number] 11:45:00* Test Item Value Reference Range Comments WHITE BLOOD CELL (test code=WBC) 18.0 K/mm3 4.5-12.5 RED BLOOD CELL (test code=RBC) 3.16 mill/mm3 3.7-5.2 HEMOGLOBIN (test code=HGB) 7.4 gram/dL 11.5-15.5 HEMATOCRIT (test code=HCT) 24.8 % 36.0-46.0 MEAN CELL VOLUME (test code=MCV) 78.5 fL 80-98 MEAN CELL HGB (test code=MCH) 23.4 picogram 27.0-33.0 MEAN CELL HGB CONCETRATION (test code=MCHC) 29.8 gram/dL 33.0-36.0 RED CELL DISTRIBUTION WIDTH (test code=RDW) 18.2 % 11.6-16.2 RED CELL DISTRIBUTION WIDTH SD (test code=RDW-SD) 51.2 fL 37.0-51.0 PLATELET COUNT (test code=PLT) 165 K/mm3 150-450 MEAN PLATELET VOLUME (test code=MPV) 12.5 fL 6.7-11.0 NEUTROPHIL % (test code=NT%) 90.4 % 39.0-69.0 IMMATURE GRANULOCYTE % (test code=IG%) 1.2 % 0.0-5.0 LYMPHOCYTE % (test code=LY%) 4.0 % 25.0-55.0 MONOCYTE % (test code=MO%) 4.3 % 0.0-10.0 EOSINOPHIL % (test code=EO%) 0.0 % 0.0-5.0 BASOPHIL % (test code=BA%) 0.1 % 0.0-1.0 NUCLEATED RBC % (test code=NRBC%) 0.1 % 0-0 NEUTROPHIL # (test code=NT#) 16.24 K/mm3 1.8-7.7 IMMATURE GRANULOCYTE # (test code=IG#) 0.22 x10 3/uL 0-0.03 LYMPHOCYTE # (test code=LY#) 0.72 K/mm3 1.0-5.0 MONOCYTE # (test code=MO#) 0.78 K/mm3 0-0.8 EOSINOPHIL # (test code=EO#) 0.00 K/mm3 0.0-0.5 BASOPHIL # (test code=BA#) 0.02 K/mm3 0.0-0.2 NUCLEATED RBC # (test code=NRBC#) 0.02 K/mm3 0.0-0.1 MANUAL DIFF REQUIRED (test code=MDIFF) NO LACTIC [id number] 11:29:00* Test Item Value Reference Range Comments LACTIC ACID (test code=LACT) 2.3 mmol/L 0.4-1.9 Results called to [id number] by V.LAB.[facility] 09/24/18 1129Critical results verified and read back by Nurse? Y LACTIC [id number] 08:36:00* Test Item Value Reference Range Comments LACTIC ACID (test code=LACT) 2.2 mmol/L 0.4-1.9 Results called to [id number] by V.[facility] 09/24/18 0836Critical results verified and read back by Nurse? Y LACTIC [id number] 04:48:00* Test Item Value Reference Range Comments LACTIC ACID (test code=LACT) 2.2 mmol/L 0.4-1.9 Results called to [id number] by [facility] 09/24/18 0447Critical results verified and read back by Nurse? Y LACTIC [id number] 00:59:00* Test Item Value Reference Range Comments LACTIC ACID (test code=LACT) 2.5 mmol/L 0.4-1.9 Results called to [id number] by V[facility] 09/24/18 0059Critical results verified and read back by Nurse? Y LACTIC [id number] 21:22:00* Test Item Value Reference Range Comments LACTIC ACID (test code=LACT) 2.9 mmol/L 0.4-1.9 Results called to [id number] by V.LAB. 09/23/18 2122Critical results verified and read back by Nurse? Y LACTIC [id number] 19:15:00* Test Item Value Reference Range Comments LACTIC ACID (test code=LACT) 3.5 mmol/L 0.4-1.9 Results called to [id number] by V.LAB. 09/23/18 1915Critical results verified and read back by Nurse? 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 TECHNIQUE AND FINDINGS: Informed consent was obtained and the patient was placed prone on the procedure table. Ultrasound of the left kidney and retroperitoneum showed a large fluid collection with low-level internal echoes. General anesthesia was initiated. The patient's left flank region was prepped and draped in the usual sterile fashion. Marcaine was administered and using sonographic guidance an 18-gauge Chiba needle was inserted into the large left retroperitoneal fluid collection. Foul smelling, viscus, reddish-brownish fluid was aspirated and samples were sent to the lab. An 035 guidewire was inserted and the needle was then replaced with a 12 Romanian pigtail drainage catheter. 900 mL of pus were drained. The catheter was sutured to the skin, a small amount of contrast material was injected outlining an irregular cavity. The cavity was flushed with normal saline and the ca theter was connected to a drainage bag. No complications. IMPRESSION: Successful percutaneous drainage of a large left perin ephric abscess, using sonographic and fluoroscopic guidance. In view of the septic situation, no attempts were made at this point to perform left percutaneous nephrostomy. Fluoroscopy Time: 72 sec CAK : 41.7 mGy DAP : 48528 mGy sq cm at 1041 Reported and signed by: Jameel Alvarez M.D. CC: Charito Leroy MD Technologist: Todd Andrews Trngab Date/Time: 09/23/2018 (1040) Leodan Orig Print D/T: S: 09/23/2018 (4698) PAGE 1 Signed Report CBC W/MANUAL [id number] 07:17:00* Test Item Value Reference Range Comments WHITE BLOOD CELL (test code=WBC) 13.5 K/mm3 4.5-12.5 RED BLOOD CELL (test code=RBC) 3.06 mill/mm3 3.7-5.2 HEMOGLOBIN (test code=HGB) 7.2 gram/dL 11.5-15.5 HEMATOCRIT (test code=HCT) 25.0 % 36.0-46.0 MEAN CELL VOLUME (test code=MCV) 81.7 fL 80-98 MEAN CELL HGB (test code=MCH) 23.5 picogram 27.0-33.0 MEAN CELL HGB CONCETRATION (test code=MCHC) 28.8 gram/dL 33.0-36.0 RED CELL DISTRIBUTION WIDTH (test code=RDW) 18.1 % 11.6-16.2 RED CELL DISTRIBUTION WIDTH SD (test code=RDW-SD) 53.9 fL 37.0-51.0 PLATELET COUNT (test code=PLT) 158 K/mm3 150-450 MEAN PLATELET VOLUME (test code=MPV) 13.7 fL 6.7-11.0 IMMATURE GRANULOCYTE % (test code=IG%) 0.5 % 0.0-5.0 NUCLEATED RBC % (test code=NRBC%) 0.0 % 0-0 NEUTROPHIL # (test code=NT#) 12.24 K/mm3 1.8-7.7 IMMATURE GRANULOCYTE # (test code=IG#) 0.07 x10 3/uL 0-0.03 LYMPHOCYTE # (test code=LY#) 0.59 K/mm3 1.0-5.0 MONOCYTE # (test code=MO#) 0.54 K/mm3 0-0.8 EOSINOPHIL # (test code=EO#) 0.00 K/mm3 0.0-0.5 BASOPHIL # (test code=BA#) 0.01 K/mm3 0.0-0.2 NUCLEATED RBC # (test code=NRBC#) 0.00 K/mm3 0.0-0.1 MANUAL DIFF REQUIRED (test code=MDIFF) YES STAIN ACCEPTABILITY (test code=STN ACCEPTABLE) STAIN ACCEPTABLE TOTAL CELLS COUNTED (test code=TCC) 115 #CELLS SEGMENTED NEUTROPHILS (test code=SEG) 73.9 % 39-69 BAND NEUTROPHIL (test code=BAND) 22.6 % 0-10 LYMPHOCYTE (test code=LYMPH) 1.8 % 25-55 REACTIVE LYMPH (test code=RELYMPH) 0 % MONOCYTE (test code=MON) 1.7 % 0-10 EOSINOPHIL (test code=EOS) 0 % 0.0-5.0 BASOPHIL (test code=BASO) 0 % 0-1.0 METAMYELOCYTE (test code=META) 0 % 0-0 MYELOCYTE (test code=MYELO) 0 % 0.0-0.0 PROMYELOCYTE (test code=PROM) 0 % 0-0 POLYCHROMASIA (test code=POLC) 2+ HYPOCHROMIA (test code=HYPO) 2+ ANISOCYTOSIS (test code=ANISO) 1+ ELLIPTOCYTES (test code=ELL) 1+ TOXIC GRANULATION (test code=TOX) 1+ PLATELET ESTIMATE (test code=PLTEST) ADEQUATE PLATELET MORPHOLOGY (test code=PLTMORPH) NORMAL IMMATURE FORMS (test code=IMMAT) 0 % CBC W/MANUAL [id number] 06:22:00* Test Item Value Reference Range Comments WHITE BLOOD CELL (test code=WBC) 13.5 K/mm3 4.5-12.5 RED BLOOD CELL (test code=RBC) 3.06 mill/mm3 3.7-5.2 HEMOGLOBIN (test code=HGB) 7.2 gram/dL 11.5-15.5 HEMATOCRIT (test code=HCT) 25.0 % 36.0-46.0 MEAN CELL VOLUME (test code=MCV) 81.7 fL 80-98 MEAN CELL HGB (test code=MCH) 23.5 picogram 27.0-33.0 MEAN CELL HGB CONCETRATION (test code=MCHC) 28.8 gram/dL 33.0-36.0 RED CELL DISTRIBUTION WIDTH (test code=RDW) 18.1 % 11.6-16.2 RED CELL DISTRIBUTION WIDTH SD (test code=RDW-SD) 53.9 fL 37.0-51.0 PLATELET COUNT (test code=PLT) 158 K/mm3 150-450 MEAN PLATELET VOLUME (test code=MPV) 13.7 fL 6.7-11.0 IMMATURE GRANULOCYTE % (test code=IG%) 0.5 % 0.0-5.0 NUCLEATED RBC % (test code=NRBC%) 0.0 % 0-0 NEUTROPHIL # (test code=NT#) 12.24 K/mm3 1.8-7.7 IMMATURE GRANULOCYTE # (test code=IG#) 0.07 x10 3/uL 0-0.03 LYMPHOCYTE # (test code=LY#) 0.59 K/mm3 1.0-5.0 MONOCYTE # (test code=MO#) 0.54 K/mm3 0-0.8 EOSINOPHIL # (test code=EO#) 0.00 K/mm3 0.0-0.5 BASOPHIL # (test code=BA#) 0.01 K/mm3 0.0-0.2 NUCLEATED RBC # (test code=NRBC#) 0.00 K/mm3 0.0-0.1 MANUAL DIFF REQUIRED (test code=MDIFF) YES STAIN ACCEPTABILITY (test code=STN ACCEPTABLE) TOTAL CELLS COUNTED (test code=TCC) #CELLS SEGMENTED NEUTROPHILS (test code=SEG) % 39-69 LYMPHOCYTE (test code=LYMPH) % 25-55 MONOCYTE (test code=MON) % 0-10 EOSINOPHIL (test code=EOS) % 0.0-5.0 CABOT RINGS (test code=CAB) MORPHOLOGY COMMENT (test code=MOC) PLATELET ESTIMATE (test code=PLTEST) PLATELET MORPHOLOGY (test code=PLTMORPH) CBC W/MANUAL [id number] 06:22:00* Test Item Value Reference Range Comments WHITE BLOOD CELL (test code=WBC) 13.5 K/mm3 4.5-12.5 RED BLOOD CELL (test code=RBC) 3.06 mill/mm3 3.7-5.2 HEMOGLOBIN (test code=HGB) 7.2 gram/dL 11.5-15.5 HEMATOCRIT (test code=HCT) 25.0 % 36.0-46.0 MEAN CELL VOLUME (test code=MCV) 81.7 fL 80-98 MEAN CELL HGB (test code=MCH) 23.5 picogram 27.0-33.0 MEAN CELL HGB CONCETRATION (test code=MCHC) 28.8 gram/dL 33.0-36.0 RED CELL DISTRIBUTION WIDTH (test code=RDW) 18.1 % 11.6-16.2 RED CELL DISTRIBUTION WIDTH SD (test code=RDW-SD) 53.9 fL 37.0-51.0 PLATELET COUNT (test code=PLT) 158 K/mm3 150-450 MEAN PLATELET VOLUME (test code=MPV) 13.7 fL 6.7-11.0 IMMATURE GRANULOCYTE % (test code=IG%) 0.5 % 0.0-5.0 NUCLEATED RBC % (test code=NRBC%) 0.0 % 0-0 NEUTROPHIL # (test code=NT#) 12.24 K/mm3 1.8-7.7 IMMATURE GRANULOCYTE # (test code=IG#) 0.07 x10 3/uL 0-0.03 LYMPHOCYTE # (test code=LY#) 0.59 K/mm3 1.0-5.0 MONOCYTE # (test code=MO#) 0.54 K/mm3 0-0.8 EOSINOPHIL # (test code=EO#) 0.00 K/mm3 0.0-0.5 BASOPHIL # (test code=BA#) 0.01 K/mm3 0.0-0.2 NUCLEATED RBC # (test code=NRBC#) 0.00 K/mm3 0.0-0.1 MANUAL DIFF REQUIRED (test code=MDIFF) YES STAIN ACCEPTABILITY (test code=STN ACCEPTABLE) TOTAL CELLS COUNTED (test code=TCC) #CELLS SEGMENTED NEUTROPHILS (test code=SEG) % 39-69 LYMPHOCYTE (test code=LYMPH) % 25-55 MONOCYTE (test code=MON) % 0-10 EOSINOPHIL (test code=EOS) % 0.0-5.0 CABOT RINGS (test code=CAB) MORPHOLOGY COMMENT (test code=MOC) PLATELET ESTIMATE (test code=PLTEST) PLATELET MORPHOLOGY (test code=PLTMORPH) CBC W/MANUAL [id number] 06:22:00* Test Item Value Reference Range Comments WHITE BLOOD CELL (test code=WBC) 13.5 K/mm3 4.5-12.5 RED BLOOD CELL (test code=RBC) 3.06 mill/mm3 3.7-5.2 HEMOGLOBIN (test code=HGB) 7.2 gram/dL 11.5-15.5 HEMATOCRIT (test code=HCT) 25.0 % 36.0-46.0 MEAN CELL VOLUME (test code=MCV) 81.7 fL 80-98 MEAN CELL HGB (test code=MCH) 23.5 picogram 27.0-33.0 MEAN CELL HGB CONCETRATION (test code=MCHC) 28.8 gram/dL 33.0-36.0 RED CELL DISTRIBUTION WIDTH (test code=RDW) 18.1 % 11.6-16.2 RED CELL DISTRIBUTION WIDTH SD (test code=RDW-SD) 53.9 fL 37.0-51.0 PLATELET COUNT (test code=PLT) 158 K/mm3 150-450 MEAN PLATELET VOLUME (test code=MPV) 13.7 fL 6.7-11.0 IMMATURE GRANULOCYTE % (test code=IG%) 0.5 % 0.0-5.0 NUCLEATED RBC % (test code=NRBC%) 0.0 % 0-0 NEUTROPHIL # (test code=NT#) 12.24 K/mm3 1.8-7.7 IMMATURE GRANULOCYTE # (test code=IG#) 0.07 x10 3/uL 0-0.03 LYMPHOCYTE # (test code=LY#) 0.59 K/mm3 1.0-5.0 MONOCYTE # (test code=MO#) 0.54 K/mm3 0-0.8 EOSINOPHIL # (test code=EO#) 0.00 K/mm3 0.0-0.5 BASOPHIL # (test code=BA#) 0.01 K/mm3 0.0-0.2 NUCLEATED RBC # (test code=NRBC#) 0.00 K/mm3 0.0-0.1 MANUAL DIFF REQUIRED (test code=MDIFF) YES STAIN ACCEPTABILITY (test code=STN ACCEPTABLE) TOTAL CELLS COUNTED (test code=TCC) #CELLS SEGMENTED NEUTROPHILS (test code=SEG) % 39-69 LYMPHOCYTE (test code=LYMPH) % 25-55 MONOCYTE (test code=MON) % 0-10 EOSINOPHIL (test code=EOS) % 0.0-5.0 MORPHOLOGY COMMENT (test code=MOC) PLATELET ESTIMATE (test code=PLTEST) PLATELET MORPHOLOGY (test code=PLTMORPH) CBC W/MANUAL [id number] 06:22:00* Test Item Value Reference Range Comments WHITE BLOOD CELL (test code=WBC) 13.5 K/mm3 4.5-12.5 RED BLOOD CELL (test code=RBC) 3.06 mill/mm3 3.7-5.2 HEMOGLOBIN (test code=HGB) 7.2 gram/dL 11.5-15.5 HEMATOCRIT (test code=HCT) 25.0 % 36.0-46.0 MEAN CELL VOLUME (test code=MCV) 81.7 fL 80-98 MEAN CELL HGB (test code=MCH) 23.5 picogram 27.0-33.0 MEAN CELL HGB CONCETRATION (test code=MCHC) 28.8 gram/dL 33.0-36.0 RED CELL DISTRIBUTION WIDTH (test code=RDW) 18.1 % 11.6-16.2 RED CELL DISTRIBUTION WIDTH SD (test code=RDW-SD) 53.9 fL 37.0-51.0 PLATELET COUNT (test code=PLT) 158 K/mm3 150-450 MEAN PLATELET VOLUME (test code=MPV) 13.7 fL 6.7-11.0 IMMATURE GRANULOCYTE % (test code=IG%) 0.5 % 0.0-5.0 NUCLEATED RBC % (test code=NRBC%) 0.0 % 0-0 NEUTROPHIL # (test code=NT#) 12.24 K/mm3 1.8-7.7 IMMATURE GRANULOCYTE # (test code=IG#) 0.07 x10 3/uL 0-0.03 LYMPHOCYTE # (test code=LY#) 0.59 K/mm3 1.0-5.0 MONOCYTE # (test code=MO#) 0.54 K/mm3 0-0.8 EOSINOPHIL # (test code=EO#) 0.00 K/mm3 0.0-0.5 BASOPHIL # (test code=BA#) 0.01 K/mm3 0.0-0.2 NUCLEATED RBC # (test code=NRBC#) 0.00 K/mm3 0.0-0.1 MANUAL DIFF REQUIRED (test code=MDIFF) YES STAIN ACCEPTABILITY (test code=STN ACCEPTABLE) TOTAL CELLS COUNTED (test code=TCC) #CELLS SEGMENTED NEUTROPHILS (test code=SEG) % 39-69 LYMPHOCYTE (test code=LYMPH) % 25-55 MONOCYTE (test code=MON) % 0-10 MORPHOLOGY COMMENT (test code=MOC) PLATELET ESTIMATE (test code=PLTEST) PLATELET MORPHOLOGY (test code=PLTMORPH) CBC W/MANUAL [id number] 06:22:00* Test Item Value Reference Range Comments WHITE BLOOD CELL (test code=WBC) 13.5 K/mm3 4.5-12.5 RED BLOOD CELL (test code=RBC) 3.06 mill/mm3 3.7-5.2 HEMOGLOBIN (test code=HGB) 7.2 gram/dL 11.5-15.5 HEMATOCRIT (test code=HCT) 25.0 % 36.0-46.0 MEAN CELL VOLUME (test code=MCV) 81.7 fL 80-98 MEAN CELL HGB (test code=MCH) 23.5 picogram 27.0-33.0 MEAN CELL HGB CONCETRATION (test code=MCHC) 28.8 gram/dL 33.0-36.0 RED CELL DISTRIBUTION WIDTH (test code=RDW) 18.1 % 11.6-16.2 RED CELL DISTRIBUTION WIDTH SD (test code=RDW-SD) 53.9 fL 37.0-51.0 PLATELET COUNT (test code=PLT) 158 K/mm3 150-450 MEAN PLATELET VOLUME (test code=MPV) 13.7 fL 6.7-11.0 IMMATURE GRANULOCYTE % (test code=IG%) 0.5 % 0.0-5.0 NUCLEATED RBC % (test code=NRBC%) 0.0 % 0-0 NEUTROPHIL # (test code=NT#) 12.24 K/mm3 1.8-7.7 IMMATURE GRANULOCYTE # (test code=IG#) 0.07 x10 3/uL 0-0.03 LYMPHOCYTE # (test code=LY#) 0.59 K/mm3 1.0-5.0 MONOCYTE # (test code=MO#) 0.54 K/mm3 0-0.8 EOSINOPHIL # (test code=EO#) 0.00 K/mm3 0.0-0.5 BASOPHIL # (test code=BA#) 0.01 K/mm3 0.0-0.2 NUCLEATED RBC # (test code=NRBC#) 0.00 K/mm3 0.0-0.1 MANUAL DIFF REQUIRED (test code=MDIFF) YES STAIN ACCEPTABILITY (test code=STN ACCEPTABLE) TOTAL CELLS COUNTED (test code=TCC) #CELLS SEGMENTED NEUTROPHILS (test code=SEG) % 39-69 LYMPHOCYTE (test code=LYMPH) % 25-55 MONOCYTE (test code=MON) % 0-10 EOSINOPHIL (test code=EOS) % 0.0-5.0 CABOT RINGS (test code=CAB) MORPHOLOGY COMMENT (test code=MOC) PLATELET ESTIMATE (test code=PLTEST) PLATELET MORPHOLOGY (test code=PLTMORPH) BASIC METABOLIC [id number] 05:34:00* Test Item Value Reference Range Comments SODIUM (test code=NA) 140 mmol/L 136-145 POTASSIUM (test code=K) 5.6 mmol/L 3.5-5.1 CHLORIDE (test code=CL) 110.0 mmol/L 98-107 CARBON DIOXIDE (test code=CO2) 13.0 mmol/L 21-32 ANION GAP (test code=GAP) 22.6 10-20 GLUCOSE (test code=GLU) 106 mg/dL 74-106 BLOOD UREA NITROGEN (test code=BUN) 51 mg/dL 7-18 RESULT VERIFIED BY REPEAT ANALYSIS GLOMERULAR FILTRATION RATE (test code=GFR) 19 mL/min >=60 Estimated GFR by using Modified MDRD formula.Chronic kidney disease is defined as either kidney damageor GFR <60 mL/min/1.73 m2 for >3 months. CREATININE (test code=CREAT) 2.60 mg/dL 0.55-1.02 Note change in reference range due to change in reagent. BUN/CREATININE RATIO (test code=BUN/CREA) 19.6 10-20 CALCIUM (test code=CA) 8.7 mg/dL 8.5-10.1 BASIC METABOLIC [id number] 05:10:00* Test Item Value Reference Range Comments SODIUM (test code=NA) 140 mmol/L 136-145 POTASSIUM (test code=K) 5.6 mmol/L 3.5-5.1 CHLORIDE (test code=CL) 110.0 mmol/L 98-107 CARBON DIOXIDE (test code=CO2) mmol/L 21-32 ANION GAP (test code=GAP) 10-20 GLUCOSE (test code=GLU) mg/dL 74-106 BLOOD UREA NITROGEN (test code=BUN) mg/dL 7-18 GLOMERULAR FILTRATION RATE (test code=GFR) mL/min >=60 CREATININE (test code=CREAT) mg/dL 0.55-1.02 BUN/CREATININE RATIO (test code=BUN/CREA) 10-20 CALCIUM (test code=CA) mg/dL 8.5-10.[id number] 22:35:00* Test Item Value Reference Range Comments FLUID SOURCE (test code=SOURCEFL) LEFT PERINEPHRIC ABSCESS DRAINAGE FLUID COLOR (test code=COLFL) RED COLORLESS FLUID APPEARANCE (test code=APPFL) CLOUDY FLUID WBC AUTO (test code=WBCFLA) 36138 cells/uL FLUID RBC AUTO (test code=RBCFLA) 7324670 cells/uL FLUID TOTAL CELLS (test code=TCFL) 13468 cells/uL >0 Fluid WBC RBC Type cells/uL cells/uL CSF (0-5) n/a Peritoneal n/a n/a Pleural n/a n/a Synovial <200 n/a CSF (0-30) n/a FLUID COMMENT (test code=COMFL) PATHOLOGST.TO REVIEW TOTAL CELLS COUNTED ON DIFF (test code=TOTCELLFL) cells DEGENERATIVE CELLS, UNABLE TO DEIFFERENTIATE REVIEWED BY (test code=REVIEW) PATHOLOGIST SPECIMEN COMMENTS: LEFT PERINEPHRIC ABSCESS DRAINAGESPECIMEN COMMENTS: LEFT HALIE NEPHRIC ABSCESS DRAINAGE.FLUID CREATININE [id number] 22:35:00* Test Item Value Reference Range Comments FLUID CREATININE (test code=CREATF) 1.3 SPECIMEN COMMENTS: LEFT PERINEPHRIC ABSCESS DRAINAGESPECIMEN COMMENTS: LEFT HALIE NEPHRIC ABSCESS DRAINAGE.BODY FLUID CELL [id number] 20:27:00* Test Item Value Reference Range Comments FLUID SOURCE (test code=SOURCEFL) FLUID COLOR (test code=COLFL) COLORLESS FLUID APPEARANCE (test code=APPFL) FLUID WBC (test code=WBCFL) per mm3 0-150 FLUID WBC AUTO (test code=WBCFLA) 88025 cells/uL FLUID RBC (test code=RBCFL) per mm3 0-50 FLUID RBC AUTO (test code=RBCFLA) 3004788 cells/uL FLUID TOTAL CELLS (test code=TCFL) 24163 cells/uL >0 Fluid WBC RBC Type cells/uL cells/uL CSF (0-5) n/a Peritoneal n/a n/a Pleural n/a n/a Synovial <200 n/a CSF (0-30) n/a TOTAL CELLS COUNTED ON DIFF (test code=TOTCELLFL) cells REVIEWED BY (test code=REVIEW) PATHOLOGIST SPECIMEN COMMENTS: LEFT PERINEPHRIC ABSCESS DRAINAGESPECIMEN COMMENTS: LEFT HALIE NEPHRIC ABSCESS DRAINAGE.FLUID CREATININE [id number] 20:27:00* Test Item Value Reference Range Comments FLUID CREATININE (test code=CREATF) 1.3 SOURCE (test code=SOURCE) . SPECIMEN COMMENTS: LEFT PERINEPHRIC ABSCESS DRAINAGESPECIMEN COMMENTS: LEFT HALIE NEPHRIC ABSCESS DRAINAGE.- XR CHEST 1 [id number] 19:58:00 FAX: Charito Lowe MD [phone] [place]: St: ADM Name: SIOBHAN ROBERTS [facility] : [birth year] Age/S: 53/F [address] [facility] Unit #: [id number] Loc: [place] [address] Phys: Charito Leroy MD Acct: [id number] Dis Date: Status: ADM IN PHONE #: [phone] Exam Date: 09/22/20181939 FAX #: [phone] Reason: COUGHING UP PHELGM EXAMS: CPT CODE: [id number] XR CHEST 1 V 00326 REASON FOR EXAM: COUGHING UP PHELGM EXAM ORDER DATE: 09/22/2018 12:00 AM Ordering Michelet: Charito Leroy MD PROCEDURE: - XR CHEST 1 V COMPARISON: 07/13/2018 FINDINGS: Portable AP frontal view of the chest obtained at 7:25 PM shows clear lungs without evidence of consolid ation. There is no evidence of effusion. The heart size is within normal l imits. Pulmonary vasculatures are unremarkable. IMPRESSIO N: No active disease. Electronically Signed by Michelet Reyez on 09/22 at 1958 Reported and signed by: Jewel Reyez M.D. CC: Charito Leroy MD chnologist: EVITA HALE; RT Sadie(R Trnscrd Date/ Time/By: 09/22/2018 (1957) : By: MengVTL Orig Print D/T: S: 09/23/19 19 (2000) PAGE 1 Signed Report BODY FLUID CELL [id number] 18:22:00* Test Item Value Reference Range Comments FLUID SOURCE (test code=SOURCEFL) FLUID COLOR (test code=COLFL) COLORLESS FLUID APPEARANCE (test code=APPFL) FLUID WBC (test code=WBCFL) per mm3 0-150 FLUID WBC AUTO (test code=WBCFLA) 41685 cells/uL FLUID RBC (test code=RBCFL) per mm3 0-50 FLUID RBC AUTO (test code=RBCFLA) 7731727 cells/uL FLUID TOTAL CELLS (test code=TCFL) 38541 cells/uL >0 Fluid WBC RBC Type cells/uL cells/uL CSF (0-5) n/a Peritoneal n/a n/a Pleural n/a n/a Synovial <200 n/a CSF (0-30) n/a TOTAL CELLS COUNTED ON DIFF (test code=TOTCELLFL) cells REVIEWED BY (test code=REVIEW) PATHOLOGIST SPECIMEN COMMENTS: LEFT PERINEPHRIC ABSCESS DRAINAGESPECIMEN COMMENTS: LEFT HALIE NEPHRIC ABSCESS DRAINAGE.FLUID CREATININE [id number] 18:22:00* Test Item Value Reference Range Comments FLUID CREATININE (test code=CREATF) SOURCE (test code=SOURCE) SPECIMEN COMMENTS: LEFT PERINEPHRIC ABSCESS DRAINAGESPECIMEN COMMENTS: LEFT HALIE NEPHRIC ABSCESS DRAINAGE.CBC W/MANUAL [id number] 11:44:00* Test Item Value Reference Range Comments WHITE BLOOD CELL (test code=WBC) 7.4 K/mm3 4.5-12.5 RED BLOOD CELL (test code=RBC) 3.04 mill/mm3 3.7-5.2 HEMOGLOBIN (test code=HGB) 7.2 gram/dL 11.5-15.5 HEMATOCRIT (test code=HCT) 24.7 % 36.0-46.0 MEAN CELL VOLUME (test code=MCV) 81.3 fL 80-98 MEAN CELL HGB (test code=MCH) 23.7 picogram 27.0-33.0 MEAN CELL HGB CONCETRATION (test code=MCHC) 29.1 gram/dL 33.0-36.0 RED CELL DISTRIBUTION WIDTH (test code=RDW) 17.8 % 11.6-16.2 RED CELL DISTRIBUTION WIDTH SD (test code=RDW-SD) 52.8 fL 37.0-51.0 PLATELET COUNT (test code=PLT) 110 K/mm3 150-450 MEAN PLATELET VOLUME (test code=MPV) 12.2 fL 6.7-11.0 IMMATURE GRANULOCYTE % (test code=IG%) 0.4 % 0.0-5.0 NUCLEATED RBC % (test code=NRBC%) 0.0 % 0-0 NEUTROPHIL # (test code=NT#) 5.90 K/mm3 1.8-7.7 IMMATURE GRANULOCYTE # (test code=IG#) 0.03 x10 3/uL 0-0.03 LYMPHOCYTE # (test code=LY#) 0.94 K/mm3 1.0-5.0 MONOCYTE # (test code=MO#) 0.50 K/mm3 0-0.8 EOSINOPHIL # (test code=EO#) 0.01 K/mm3 0.0-0.5 BASOPHIL # (test code=BA#) 0.01 K/mm3 0.0-0.2 NUCLEATED RBC # (test code=NRBC#) 0.00 K/mm3 0.0-0.1 MANUAL DIFF REQUIRED (test code=MDIFF) YES STAIN ACCEPTABILITY (test code=STN ACCEPTABLE) STAIN ACCEPTABLE TOTAL CELLS COUNTED (test code=TCC) 114 #CELLS SEGMENTED NEUTROPHILS (test code=SEG) 83.3 % 39-69 BAND NEUTROPHIL (test code=BAND) 7.9 % 0-10 LYMPHOCYTE (test code=LYMPH) 5.3 % 25-55 REACTIVE LYMPH (test code=RELYMPH) 0 % MONOCYTE (test code=MON) 3.5 % 0-10 EOSINOPHIL (test code=EOS) 0 % 0.0-5.0 BASOPHIL (test code=BASO) 0 % 0-1.0 METAMYELOCYTE (test code=META) 0 % 0-0 MYELOCYTE (test code=MYELO) 0 % 0.0-0.0 PROMYELOCYTE (test code=PROM) 0 % 0-0 POLYCHROMASIA (test code=POLC) 1+ HYPOCHROMIA (test code=HYPO) 2+ ANISOCYTOSIS (test code=ANISO) 2+ MICROCYTOSIS (test code=MICR) 1+ PLATELET ESTIMATE (test code=PLTEST) ADEQUATE PLATELET MORPHOLOGY (test code=PLTMORPH) NORMAL IMMATURE FORMS (test code=IMMAT) 0 % CBC W/MANUAL [id number] 10:20:00* Test Item Value Reference Range Comments WHITE BLOOD CELL (test code=WBC) 7.4 K/mm3 4.5-12.5 RED BLOOD CELL (test code=RBC) 3.04 mill/mm3 3.7-5.2 HEMOGLOBIN (test code=HGB) 7.2 gram/dL 11.5-15.5 HEMATOCRIT (test code=HCT) 24.7 % 36.0-46.0 MEAN CELL VOLUME (test code=MCV) 81.3 fL 80-98 MEAN CELL HGB (test code=MCH) 23.7 picogram 27.0-33.0 MEAN CELL HGB CONCETRATION (test code=MCHC) 29.1 gram/dL 33.0-36.0 RED CELL DISTRIBUTION WIDTH (test code=RDW) 17.8 % 11.6-16.2 RED CELL DISTRIBUTION WIDTH SD (test code=RDW-SD) 52.8 fL 37.0-51.0 PLATELET COUNT (test code=PLT) 110 K/mm3 150-450 MEAN PLATELET VOLUME (test code=MPV) 12.2 fL 6.7-11.0 IMMATURE GRANULOCYTE % (test code=IG%) 0.4 % 0.0-5.0 NUCLEATED RBC % (test code=NRBC%) 0.0 % 0-0 NEUTROPHIL # (test code=NT#) 5.90 K/mm3 1.8-7.7 IMMATURE GRANULOCYTE # (test code=IG#) 0.03 x10 3/uL 0-0.03 LYMPHOCYTE # (test code=LY#) 0.94 K/mm3 1.0-5.0 MONOCYTE # (test code=MO#) 0.50 K/mm3 0-0.8 EOSINOPHIL # (test code=EO#) 0.01 K/mm3 0.0-0.5 BASOPHIL # (test code=BA#) 0.01 K/mm3 0.0-0.2 NUCLEATED RBC # (test code=NRBC#) 0.00 K/mm3 0.0-0.1 MANUAL DIFF REQUIRED (test code=MDIFF) YES STAIN ACCEPTABILITY (test code=STN ACCEPTABLE) TOTAL CELLS COUNTED (test code=TCC) #CELLS SEGMENTED NEUTROPHILS (test code=SEG) % 39-69 LYMPHOCYTE (test code=LYMPH) % 25-55 MONOCYTE (test code=MON) % 0-10 EOSINOPHIL (test code=EOS) % 0.0-5.0 CABOT RINGS (test code=CAB) MORPHOLOGY COMMENT (test code=MOC) PLATELET ESTIMATE (test code=PLTEST) PLATELET MORPHOLOGY (test code=PLTMORPH) CBC W/MANUAL [id number] 10:20:00* Test Item Value Reference Range Comments WHITE BLOOD CELL (test code=WBC) 7.4 K/mm3 4.5-12.5 RED BLOOD CELL (test code=RBC) 3.04 mill/mm3 3.7-5.2 HEMOGLOBIN (test code=HGB) 7.2 gram/dL 11.5-15.5 HEMATOCRIT (test code=HCT) 24.7 % 36.0-46.0 MEAN CELL VOLUME (test code=MCV) 81.3 fL 80-98 MEAN CELL HGB (test code=MCH) 23.7 picogram 27.0-33.0 MEAN CELL HGB CONCETRATION (test code=MCHC) 29.1 gram/dL 33.0-36.0 RED CELL DISTRIBUTION WIDTH (test code=RDW) 17.8 % 11.6-16.2 RED CELL DISTRIBUTION WIDTH SD (test code=RDW-SD) 52.8 fL 37.0-51.0 PLATELET COUNT (test code=PLT) 110 K/mm3 150-450 MEAN PLATELET VOLUME (test code=MPV) 12.2 fL 6.7-11.0 IMMATURE GRANULOCYTE % (test code=IG%) 0.4 % 0.0-5.0 NUCLEATED RBC % (test code=NRBC%) 0.0 % 0-0 NEUTROPHIL # (test code=NT#) 5.90 K/mm3 1.8-7.7 IMMATURE GRANULOCYTE # (test code=IG#) 0.03 x10 3/uL 0-0.03 LYMPHOCYTE # (test code=LY#) 0.94 K/mm3 1.0-5.0 MONOCYTE # (test code=MO#) 0.50 K/mm3 0-0.8 EOSINOPHIL # (test code=EO#) 0.01 K/mm3 0.0-0.5 BASOPHIL # (test code=BA#) 0.01 K/mm3 0.0-0.2 NUCLEATED RBC # (test code=NRBC#) 0.00 K/mm3 0.0-0.1 MANUAL DIFF REQUIRED (test code=MDIFF) YES STAIN ACCEPTABILITY (test code=STN ACCEPTABLE) TOTAL CELLS COUNTED (test code=TCC) #CELLS SEGMENTED NEUTROPHILS (test code=SEG) % 39-69 LYMPHOCYTE (test code=LYMPH) % 25-55 MONOCYTE (test code=MON) % 0-10 EOSINOPHIL (test code=EOS) % 0.0-5.0 MORPHOLOGY COMMENT (test code=MOC) PLATELET ESTIMATE (test code=PLTEST) PLATELET MORPHOLOGY (test code=PLTMORPH) CBC W/MANUAL [id number] 10:20:00* Test Item Value Reference Range Comments WHITE BLOOD CELL (test code=WBC) 7.4 K/mm3 4.5-12.5 RED BLOOD CELL (test code=RBC) 3.04 mill/mm3 3.7-5.2 HEMOGLOBIN (test code=HGB) 7.2 gram/dL 11.5-15.5 HEMATOCRIT (test code=HCT) 24.7 % 36.0-46.0 MEAN CELL VOLUME (test code=MCV) 81.3 fL 80-98 MEAN CELL HGB (test code=MCH) 23.7 picogram 27.0-33.0 MEAN CELL HGB CONCETRATION (test code=MCHC) 29.1 gram/dL 33.0-36.0 RED CELL DISTRIBUTION WIDTH (test code=RDW) 17.8 % 11.6-16.2 RED CELL DISTRIBUTION WIDTH SD (test code=RDW-SD) 52.8 fL 37.0-51.0 PLATELET COUNT (test code=PLT) 110 K/mm3 150-450 MEAN PLATELET VOLUME (test code=MPV) 12.2 fL 6.7-11.0 IMMATURE GRANULOCYTE % (test code=IG%) 0.4 % 0.0-5.0 NUCLEATED RBC % (test code=NRBC%) 0.0 % 0-0 NEUTROPHIL # (test code=NT#) 5.90 K/mm3 1.8-7.7 IMMATURE GRANULOCYTE # (test code=IG#) 0.03 x10 3/uL 0-0.03 LYMPHOCYTE # (test code=LY#) 0.94 K/mm3 1.0-5.0 MONOCYTE # (test code=MO#) 0.50 K/mm3 0-0.8 EOSINOPHIL # (test code=EO#) 0.01 K/mm3 0.0-0.5 BASOPHIL # (test code=BA#) 0.01 K/mm3 0.0-0.2 NUCLEATED RBC # (test code=NRBC#) 0.00 K/mm3 0.0-0.1 MANUAL DIFF REQUIRED (test code=MDIFF) YES STAIN ACCEPTABILITY (test code=STN ACCEPTABLE) TOTAL CELLS COUNTED (test code=TCC) #CELLS SEGMENTED NEUTROPHILS (test code=SEG) % 39-69 LYMPHOCYTE (test code=LYMPH) % 25-55 MONOCYTE (test code=MON) % 0-10 MORPHOLOGY COMMENT (test code=MOC) PLATELET ESTIMATE (test code=PLTEST) PLATELET MORPHOLOGY (test code=PLTMORPH) CBC W/MANUAL [id number] 10:19:00* Test Item Value Reference Range Comments WHITE BLOOD CELL (test code=WBC) 7.4 K/mm3 4.5-12.5 RED BLOOD CELL (test code=RBC) 3.04 mill/mm3 3.7-5.2 HEMOGLOBIN (test code=HGB) 7.2 gram/dL 11.5-15.5 HEMATOCRIT (test code=HCT) 24.7 % 36.0-46.0 MEAN CELL VOLUME (test code=MCV) 81.3 fL 80-98 MEAN CELL HGB (test code=MCH) 23.7 picogram 27.0-33.0 MEAN CELL HGB CONCETRATION (test code=MCHC) 29.1 gram/dL 33.0-36.0 RED CELL DISTRIBUTION WIDTH (test code=RDW) 17.8 % 11.6-16.2 RED CELL DISTRIBUTION WIDTH SD (test code=RDW-SD) 52.8 fL 37.0-51.0 PLATELET COUNT (test code=PLT) 110 K/mm3 150-450 MEAN PLATELET VOLUME (test code=MPV) 12.2 fL 6.7-11.0 IMMATURE GRANULOCYTE % (test code=IG%) 0.4 % 0.0-5.0 NUCLEATED RBC % (test code=NRBC%) 0.0 % 0-0 NEUTROPHIL # (test code=NT#) 5.90 K/mm3 1.8-7.7 IMMATURE GRANULOCYTE # (test code=IG#) 0.03 x10 3/uL 0-0.03 LYMPHOCYTE # (test code=LY#) 0.94 K/mm3 1.0-5.0 MONOCYTE # (test code=MO#) 0.50 K/mm3 0-0.8 EOSINOPHIL # (test code=EO#) 0.01 K/mm3 0.0-0.5 BASOPHIL # (test code=BA#) 0.01 K/mm3 0.0-0.2 NUCLEATED RBC # (test code=NRBC#) 0.00 K/mm3 0.0-0.1 MANUAL DIFF REQUIRED (test code=MDIFF) YES STAIN ACCEPTABILITY (test code=STN ACCEPTABLE) TOTAL CELLS COUNTED (test code=TCC) #CELLS SEGMENTED NEUTROPHILS (test code=SEG) % 39-69 LYMPHOCYTE (test code=LYMPH) % 25-55 MONOCYTE (test code=MON) % 0-10 EOSINOPHIL (test code=EOS) % 0.0-5.0 CABOT RINGS (test code=CAB) MORPHOLOGY COMMENT (test code=MOC) PLATELET ESTIMATE (test code=PLTEST) PLATELET MORPHOLOGY (test code=PLTMORPH) CBC W/MANUAL [id number] 10:19:00* Test Item Value Reference Range Comments WHITE BLOOD CELL (test code=WBC) 7.4 K/mm3 4.5-12.5 RED BLOOD CELL (test code=RBC) 3.04 mill/mm3 3.7-5.2 HEMOGLOBIN (test code=HGB) 7.2 gram/dL 11.5-15.5 HEMATOCRIT (test code=HCT) 24.7 % 36.0-46.0 MEAN CELL VOLUME (test code=MCV) 81.3 fL 80-98 MEAN CELL HGB (test code=MCH) 23.7 picogram 27.0-33.0 MEAN CELL HGB CONCETRATION (test code=MCHC) 29.1 gram/dL 33.0-36.0 RED CELL DISTRIBUTION WIDTH (test code=RDW) 17.8 % 11.6-16.2 RED CELL DISTRIBUTION WIDTH SD (test code=RDW-SD) 52.8 fL 37.0-51.0 PLATELET COUNT (test code=PLT) 110 K/mm3 150-450 MEAN PLATELET VOLUME (test code=MPV) 12.2 fL 6.7-11.0 IMMATURE GRANULOCYTE % (test code=IG%) 0.4 % 0.0-5.0 NUCLEATED RBC % (test code=NRBC%) 0.0 % 0-0 NEUTROPHIL # (test code=NT#) 5.90 K/mm3 1.8-7.7 IMMATURE GRANULOCYTE # (test code=IG#) 0.03 x10 3/uL 0-0.03 LYMPHOCYTE # (test code=LY#) 0.94 K/mm3 1.0-5.0 MONOCYTE # (test code=MO#) 0.50 K/mm3 0-0.8 EOSINOPHIL # (test code=EO#) 0.01 K/mm3 0.0-0.5 BASOPHIL # (test code=BA#) 0.01 K/mm3 0.0-0.2 NUCLEATED RBC # (test code=NRBC#) 0.00 K/mm3 0.0-0.1 MANUAL DIFF REQUIRED (test code=MDIFF) YES STAIN ACCEPTABILITY (test code=STN ACCEPTABLE) TOTAL CELLS COUNTED (test code=TCC) #CELLS SEGMENTED NEUTROPHILS (test code=SEG) % 39-69 LYMPHOCYTE (test code=LYMPH) % 25-55 MONOCYTE (test code=MON) % 0-10 EOSINOPHIL (test code=EOS) % 0.0-5.0 CABOT RINGS (test code=CAB) MORPHOLOGY COMMENT (test code=MOC) PLATELET ESTIMATE (test code=PLTEST) PLATELET MORPHOLOGY (test code=PLTMORPH) COMPREHENSIVE METABOLIC [id number] 08:16:00* Test Item Value Reference Range Comments SODIUM (test code=NA) 139 mmol/L 136-145 POTASSIUM (test code=K) 4.7 mmol/L 3.5-5.1 CHLORIDE (test code=CL) 110.0 mmol/L 98-107 CARBON DIOXIDE (test code=CO2) 20.0 mmol/L 21-32 ANION GAP (test code=GAP) 13.7 10-20 GLUCOSE (test code=GLU) 73 mg/dL 74-106 BLOOD UREA NITROGEN (test code=BUN) 35 mg/dL 7-18 GLOMERULAR FILTRATION RATE (test code=GFR) 25 mL/min >=60 Estimated GFR by using Modified MDRD formula.Chronic kidney disease is defined as either kidney damageor GFR <60 mL/min/1.73 m2 for >3 months. CREATININE (test code=CREAT) 2.10 mg/dL 0.55-1.02 Note change in reference range due to change in reagent. BUN/CREATININE RATIO (test code=BUN/CREA) 17.0 10-20 TOTAL PROTEIN (test code=PROT) 6.5 gram/dL 6.4-8.2 ALBUMIN (test code=ALB) 1.6 g/dL 3.4-5.0 GLOBULIN (test code=GLOB) 4.9 gram/dL 2.7-4.2 ALBUMIN/GLOBULIN RATIO (test code=A/G) 0.3 0.75-1.50 CALCIUM (test code=CA) 8.0 mg/dL 8.5-10.1 BILIRUBIN TOTAL (test code=BILT) 1.80 mg/dL 0.0-1.0 SGOT/AST (test code=AST) 28 IUnit/L 15-37 SGPT/ALT (test code=ALT) 29 IUnit/L 12-78 ALKALINE PHOSPHATASE TOTAL (test code=ALKP) 362 IUnit/L 45-117 Note change in reference range due to change in reagent. - US ABDOMEN [id number] 15:38:00 Name: SIOBHAN BARBOSA [facility] : 1965 Age/S: 53 / F [address] [facility] Unit #: [id number] Loc: [place] [address] Phys: EARNEST FAYE MD Acct: [id number] Dis Date: Status: ADM IN PHONE #: [phone] Exam Date: 09/21/2018 2545 FAX #: [phone] Reason: elevated lfts, abdomianal pain EXAMS: CPT CODE: [id number] US ABDOMEN LTD [id number] REASON FOR EXAM: elevated lfts, abdomianal pain EXAM ORDER DATE: 09/21/2018 1:15 PM Attending M.D.: EARNEST FAYE MD PROCEDURE: - US ABDOMEN LTD FINDINGS: The liver is nodular in contour. There is no evidence of focal mass identified. The pancreas is within normal limits. The right kidney measures 9.3 x 4.9 cm. There is no evidence of hydronephrosis. There is no evidence of nephrolithiasis. A 1.3 cm cyst seen in the upper pole of the right kidney The gallbladder is partially contracted with multiple gallstones. The common bile duct measures 0.5 cm. There is no evidence of ascites. The aorta and IVC are within normal limits. The portal vein is patent with hepatopetal flow IMPRESSION: Cholelithiasis. Cirrhosis of the liver. at 1538 Reported and signed by: Jewel Reyez M.D. CC: EARNEST FAYE MD Technologist: Belinda Farrell Trnscb Date/Time: 09/21/2018 (153) [id number] Orig Print D/T: S: 09/21/2018 (9170) Probe: PAGE 1 Signed Report LACTIC [id number] 13:40:00* Test Item Value Reference Range Comments LACTIC ACID (test code=LACT) 1.1 mmol/L 0.4-1.9 URINALYSIS [id number] 12:50:00* Test Item Value Reference Range Comments UA COLOR (test code=COLU) ENRIKE YELLOW UA APPEARANCE (test code=APPU) Cloudy CLEAR UA GLUCOSE DIPSTICK (test code=DGLUU) NEGATIVE mg/dL NEGATIVE UA BILIRUBIN DIPSTICK (test code=BILU) NEGATIVE mg/dL NEGATIVE UA KETONE DIPSTICK (test code=KETU) Negative mg/dL NEGATIVE UA SPECIFIC GRAVITY (test code=SGU) 1.017 1.001-1.035 UA BLOOD DIPSTICK (test code=JONO) 1+ (Small) NEGATIVE UA PH DIPSTICK (test code=AHMET) 6.0 5.0-8.0 UA PROTEIN DIPSTICK (test code=PROU) 100 (2+) mg/dL NEGATIVE UA UROBILINIOGEN DIPSTICK (test code=URO) 4.0 (2+) mg/dL NEGATIVE UA NITRITE DIPSTICK (test code=IFEOMA) NEGATIVE NEGATIVE UA LEUKOCYTE ESTERASE W REFLEX (test code=LEUUR) 3+ NEGATIVE UA WBC (test code=WBCU) >50 #/HPF 0-5 UA RBC (test code=RBCU) >20 #/HPF 0-5 UA WBC CLUMPS (test code=WBCUCL) >10 /HPF NONE UA EPITHELIAL CELLS (test code=EPIU) FEW per HPF FEW UA BACTERIA (test code=BACU) FEW #/HPF NONE UA RENAL CELLS (test code=PAULO) 0-2 #/HPF 0-5 UA MUCUS (test code=MUCU) FEW #/LPF FEW Urine Source? Clean CatchURINALYSIS [id number] 12:46:00* Test Item Value Reference Range Comments UA COLOR (test code=COLU) ENRIKE YELLOW UA APPEARANCE (test code=APPU) Cloudy CLEAR UA GLUCOSE DIPSTICK (test code=DGLUU) NEGATIVE mg/dL NEGATIVE UA BILIRUBIN DIPSTICK (test code=BILU) NEGATIVE mg/dL NEGATIVE UA KETONE DIPSTICK (test code=KETU) Negative mg/dL NEGATIVE UA SPECIFIC GRAVITY (test code=SGU) 1.017 1.001-1.035 UA BLOOD DIPSTICK (test code=JONO) 1+ (Small) NEGATIVE UA PH DIPSTICK (test code=AHMET) 6.0 5.0-8.0 UA PROTEIN DIPSTICK (test code=PROU) 100 (2+) mg/dL NEGATIVE UA UROBILINIOGEN DIPSTICK (test code=URO) 4.0 (2+) mg/dL NEGATIVE UA NITRITE DIPSTICK (test code=IFEOMA) NEGATIVE NEGATIVE UA LEUKOCYTE ESTERASE W REFLEX (test code=LEUUR) 3+ NEGATIVE UA WBC (test code=WBCU) per HPF 0-5 Urine Source? Clean CatchPROCALCITONIN (PCT)2018-09-21 12:40:00* Test Item Value Reference Range Comments PROCALCITONIN (PCT) (test code=PROCAL) 4.06 ng/ml Results called to [id number] by RITO 09/21/18 1240Critical results verified and read back by Nurse? YConcentration Interpretation (ng/mL) <0.51 Sepsis is not likely. Local bacterial infection is possible. (LOW RISK for progression to Sepsis) 0.51 - 2.00 Sepsis is possible, but other conditions are known to elevate PCT as well. (MODERATE RISK for progression to Sepsis) > 2.00 Sepsis is likely, unless other causes are known. (HIGH RISK for progression to Severe Sepsis or Septic Shock) 10.00 High likelihood of Severe Sepsis or Septic or higher Shock. *Increased PCT levels may not always be related to systemic bacterial infection.*Low PCT levels do not automatically exclude the presence of bacterial infection.*All results should be interpreted taking into account the patients history. - CT ABD PELVIS W/O [id number] 12:33:00 Name: SIOBHAN BARBOSA [facility] : 1965 Age/S: 53 / F [address] [facility] Unit #: [id number] Loc: [place] [address] Phys: EARNEST FAYE MD Acct: [id number] Dis Date: Status: REG ER PHONE #: [phone] Exam Date: 09/21/2018 1213 FAX #: [phone] Reason: L. sided abdominal pain EXAMS: CPT CODE: [id number] CT ABD PELVIS W/O CONT 29125 HISTORY: Left-sided abdominal pain. COMPARISON: CT scan from June 21, 2018. CT abdomen and pelvis: Stone protocol. Automated exposure control. CT of abdomen: Lung bases are clear. Noncontrast liver demonstrate lobular contour and appears shrunken suggesting cirrhosis. No discrete mass. Multiple calcified gallstones. No splenomegaly at 14.3 cm in length. The stomach is collapsed and limited with mildly dilated and thickened distal esophagus. Noncontrast pancreas is within normal limits. Adrenals are normal. Right kidney is free from hydroureteronephrosis. No calyceal stones. Staghorn calculus seen previously in the left kidney is noted again measuring 3 cm with average Hounsfield unit measurement of 498. Posterolateral large fluid collection likely urinoma from ruptured calyx along the entire left kidney in the interpolar and lower pole location extending to the posterior to the retroperitoneal wall and displacing the spleen laterally and anteriorly and compressing displacing the left colon. This is measuring 14 x 14 x 12.4 cm. Average Hounsfield unit measurement ranging up to 23. Double-J stent is noted in good pos ition within the pelvis. Calyceal stones noted along the proximal J measur ing 1.1 cm. No pathologic adenopathy. IVC filter caudal to the burke al veins. Atherosclerotic change of the vasculature. No beni l obstruction or colitis or diverticulitis or enteritis. CT PELVIS : Pelvic bowel loops are unobstructed. Appendix is visible but no inflammatory changes. Suprapubic catheter within decompressed urinary bladder double-J stent noted within the left ureter and within the urinary bladder with 8.5 mm coarse calcification along the anterolateral margin of the distal J. Moderate hemorrhagic free fluid in the pelvis with Hounsfield unit measurement of 36. Patient is post hysterectomy. No pelvic pathologic adenopathy. PAGE 1 Signed Report (CONTINUED) Name: SIOBHAN BARBOSA [facility] [place] : 1965 Age/S: 53 / F [address] [facility] Unit #: [id number] Loc: [place], [place] [address] Phys: EARNEST FAYE MD Acct: [id number] Dis Date: Status: REG ER PHONE #: [phone] Exam Date: 09/21/2018 1213 FAX #: [phone] Reason: L. sided abdominal pain EXAMS: CPT CODE: [id number] CT ABD PELVIS W/O CONT 27710 < Continued> Subcutaneous tissues and the musculature are normal in appearance. No lytic or blastic lesions are noted within the bony skeleton. DJD. IMPRESSION: FINDINGS suspicious for ruptured calyx on the left side with formation of the large posterolateral urinoma in the interpolar and left lower pole measuring 14 x 14 x 12.4 cm with average Hounsfield unit measurement of 23. Staghorn calculus is noted again measuring up to 3 cm with average Hounsfield unit measurement of 498. Double-J stent in good position within the left collecting system with 1.1 cm calcification anterolateral to the proximal J and 8.5 cm calcification anterolateral to the distal J. Suprapubic catheter within the decompressed urinary bladder. Hemorrhagic free fluid in the pelvis. No bowel obstruction or colitis or diverticulitis or enteritis. Cirrhotic nodular shrunken liver with small perihepatic fluid. Gallstones. No splenomegaly. at 1233 Reported and signed by: Krystian Johnson M.D. CC: EARNEST FAYE MD Technologist:Ed Benavidez RT(R),(MR),(CT) CTDI: DLP: Trnscb Date/Time: 09/21/2018 (1233) [email or web address] Orig Print D/T: S: 09/21/2018 (3659) CTDI: DLP: PAGE 2 Signed Report BASIC METABOLIC PANEL 2018-09-21 12:32:00* Test Item Value Reference Range Comments SODIUM (test code=NA) 137 mmol/L 136-145 POTASSIUM (test code=K) 4.6 mmol/L 3.5-5.1 CHLORIDE (test code=CL) 105.7 mmol/L 98-107 CARBON DIOXIDE (test code=CO2) 21.0 mmol/L 21-32 ANION GAP (test code=GAP) 14.9 10-20 GLUCOSE (test code=GLU) 142 mg/dL 74-106 BLOOD UREA NITROGEN (test code=BUN) 32 mg/dL 7-18 GLOMERULAR FILTRATION RATE (test code=GFR) 23 mL/min >=60 Estimated GFR by using Modified MDRD formula.Chronic kidney disease is defined as either kidney damageor GFR <60 mL/min/1.73 m2 for >3 months. CREATININE (test code=CREAT) 2.19 mg/dL 0.55-1.02 Note change in reference range due to change in reagent. BUN/CREATININE RATIO (test code=BUN/CREA) 14.6 10-20 CALCIUM (test code=CA) 9.0 mg/dL 8.5-10.1 HEPATIC FUNCTION [id number] 12:32:00* Test Item Value Reference Range Comments TOTAL PROTEIN (test code=PROT) 7.3 gram/dL 6.4-8.2 ALBUMIN (test code=ALB) 1.9 g/dL 3.4-5.0 GLOBULIN (test code=GLOB) 5.4 gram/dL 2.7-4.2 ALBUMIN/GLOBULIN RATIO (test code=A/G) 0.4 0.75-1.50 BILIRUBIN TOTAL (test code=BILT) 2.20 mg/dL 0.0-1.0 BILIRUBIN DIRECT (test code=BILD) 1.76 mg/dL 0.0-0.20 SGOT/AST (test code=AST) 45 IUnit/L 15-37 SGPT/ALT (test code=ALT) 37 IUnit/L 12-78 ALKALINE PHOSPHATASE TOTAL (test code=ALKP) 429 IUnit/L 45-117 Note change in reference range due to change in reagent. [id number] 12:32:00* Test Item Value Reference Range Comments LIPASE (test code=LIP) 157 U/L 73.0-393.0 [id number] 12:32:00* Test Item Value Reference Range Comments TROPONIN-I (test code=TROPI) <0.015 ng/mL 0-0.045 BASIC METABOLIC [id number] 12:23:00* Test Item Value Reference Range Comments SODIUM (test code=NA) 137 mmol/L 136-145 POTASSIUM (test code=K) 4.6 mmol/L 3.5-5.1 CHLORIDE (test code=CL) 105.7 mmol/L 98-107 CARBON DIOXIDE (test code=CO2) 21.0 mmol/L 21-32 ANION GAP (test code=GAP) 14.9 10-20 GLUCOSE (test code=GLU) 142 mg/dL 74-106 BLOOD UREA NITROGEN (test code=BUN) 32 mg/dL 7-18 GLOMERULAR FILTRATION RATE (test code=GFR) 23 mL/min >=60 Estimated GFR by using Modified MDRD formula.Chronic kidney disease is defined as either kidney damageor GFR <60 mL/min/1.73 m2 for >3 months. CREATININE (test code=CREAT) 2.19 mg/dL 0.55-1.02 Note change in reference range due to change in reagent. BUN/CREATININE RATIO (test code=BUN/CREA) 14.6 10-20 CALCIUM (test code=CA) 9.0 mg/dL 8.5-10.1 HEPATIC FUNCTION [id number] 12:23:00* Test Item Value Reference Range Comments TOTAL PROTEIN (test code=PROT) 7.3 gram/dL 6.4-8.2 ALBUMIN (test code=ALB) 1.9 g/dL 3.4-5.0 GLOBULIN (test code=GLOB) 5.4 gram/dL 2.7-4.2 ALBUMIN/GLOBULIN RATIO (test code=A/G) 0.4 0.75-1.50 BILIRUBIN TOTAL (test code=BILT) 2.20 mg/dL 0.0-1.0 BILIRUBIN DIRECT (test code=BILD) 1.76 mg/dL 0.0-0.20 SGOT/AST (test code=AST) 45 IUnit/L 15-37 SGPT/ALT (test code=ALT) 37 IUnit/L 12-78 ALKALINE PHOSPHATASE TOTAL (test code=ALKP) 429 IUnit/L 45-117 Note change in reference range due to change in reagent. [id number] 12:23:00* Test Item Value Reference Range Comments LIPASE (test code=LIP) U/L 73.0-393.0 [id number] 12:23:00* Test Item Value Reference Range Comments TROPONIN-I (test code=TROPI) <0.015 ng/mL 0-0.045 PROTHROMBIN [id number] 11:50:00* Test Item Value Reference Range Comments PROTHROMBIN TIME PATIENT (test code=PTP) 13.5 seconds 9.0-14.0 INTERNATIONAL NORMAL RATIO (test code=INR) 1.1 0.8-1.2 The therapeutic range for oral anticoagulant therapy formost indications is an international normalized ratio (INR)of between 2.0 and 3.0. The recommended therapeutic INRrange for various clinical situations is listed below: Clinical Situation INR range Pulmonary e mbolism treatment (2.0-3.0)Venous thrombosis treatmentVenous thrombosis prophylaxis (high risk surgery)Prevention of systemic embolism from: Acute myocardial infarction Valvular heart disease Atrial fibrillation Mechanical prosthetic heart valves (2.5-3.5) IS PATIENT ON ANTICOAGULANTS? NTHROMBOPLASTIN TIME [id number] 11:50:00* Test Item Value Reference Range Comments THROMBOPLASTIN TIME PARTIAL (test code=PTT) 25.9 seconds 25.0-36.5 IS PATIENT ON ANTICOAGULANTS? NCBC W/O [id number] 11:43:00* Test Item Value Reference Range Comments WHITE BLOOD CELL (test code=WBC) 10.3 K/mm3 4.5-12.5 RED BLOOD CELL (test code=RBC) 3.18 mill/mm3 3.7-5.2 HEMOGLOBIN (test code=HGB) 7.4 gram/dL 11.5-15.5 HEMATOCRIT (test code=HCT) 25.3 % 36.0-46.0 MEAN CELL VOLUME (test code=MCV) 79.6 fL 80-98 MEAN CELL HGB (test code=MCH) 23.3 picogram 27.0-33.0 MEAN CELL HGB CONCETRATION (test code=MCHC) 29.2 gram/dL 33.0-36.0 RED CELL DISTRIBUTION WIDTH (test code=RDW) 17.7 % 11.6-16.2 PLATELET COUNT (test code=PLT) 133 K/mm3 150-450 MEAN PLATELET VOLUME (test code=MPV) 12.5 fL 6.7-11.0 FLUID, [id number] 15:16:00 RUN DATE: 07/13/18 [facility] PAGE 1 RUN TIME: 1516 Specimen Inqui ry RUN USER: INTERFACE PATIENT: SIOBHAN BARBOSA ACCT #: [id number] LOC: MIRIAM U #: [id number] AGE/SX: 53/F ROOM: [facility] RE07/07/18REG DR: Karrie Zamudio : 63 BED: B DIS: STATUS: ADM IN TLOC: SPEC #: [id number] RECD: 07/08/18 STATUS: JAC LAZARO #: [id number] RADHA: 07/08/18- [facility] DR: Karrie Zamudio ENTERED: 07/08/18 SP TYPE: FL OTHER OTHR DR: Mona Daysi ariel or Family Physician Delbert Luna MD, Herbert LeonardORDERED: GROSS COPIES TO: No Primary or Family Physician Karrie Zamudio [id number] [facility] [address] [place] [address] Delbert Luna MD [address] [place] [address] Armando Stoner [address] [place], [place] [id number] PROCEDURES: GROSS (07/13/18-1410) TISSUES: URINE - 3 ML PINK CLINICAL HISTORY COLLECTION DATE: 07/08/18 COMMENT Intradepartmental consultation: RRB. FINAL DIAGNOSIS Irrigation f luid from left renal pelvis for cytology: UROTHELIAL CELLS AND COLLECTION S OF AMORPHUS DEGENERATING FIBRINOUS MATERIAL CONTAINING SOME WHITE BLO OD CELLS NEGATIVE FOR MALIGNANCY * * CONTINUED ON NEXT PAGE RUN DATE: 07/13/18 [facility] PAGE 2 RUN TIME: 1516 Specimen Inquiry RUN USER: INTERFACE SPEC #: [id number] PATIENT: SIOBHAN BARBOSA #[id number] (Continued)-------- ---- FINAL DIAGNOSIS (Continued) Fahad/raleigh D [id number], [id number] MACROSCOPIC The specimen consist of pink fluid for concentration a nd evaluation. A cell block will be prepared. GROSS PERFORMED AT [facility] [address] [place] [address] [phone])[phone] MICROSCOPIC MICROSCOPIC PERFORMED AT [facility] All of the stains, including any controls performed, stain appropriately. [facility] [address] [place] [address] (p)[phone] PERFORMING SITE Diagnosis performed at: [facility] [address] [place] [address] Signed SIGNATURE ON FILE Janna Patel 07/13/18 1516 END OF REPORT BLADDER,[id number] 17:09:00 RUN DATE: 04/01/18 [facility] PAGE 1 RUN TIME: 1710 Specimen Inqui ry RUN USER: INTERFACE PATIENT: SIOBHAN BARBOSA ACCT #: [id number] LOC: NATALY U #: [id number] AGE/SX: 53/F ROOM: RE03/31/18REG DR: Armando Stoner : 63 BED: DIS: STATUS: DEP SDC TLOC: SPEC #: [id number] RECD: 03/31/18 STATUS: JAC LAZARO #: [id number] RADHA: 03/31/18 [facility] DR: Armando Stoner ENTERED: 03/31/18 SP TYPE: BX BLAD OTHR DR: Dolly Del Real MD ORDERED: GROSS COPIES TO: Dolly Del Real MD [address] [place] [id number] Armando Stoner [address] [place] [address] PROCEDURES: GROSS (04/01/18-1 155) TISSUES: URINARY BLADDER, NOS - LEFT BX CLINICAL HISTORY COLLECTION DATE: 03/31/18 HEMATURIA, RETENTION URINE COMMENT Intradepartmental consultation: DMW FINAL DIAGNOSIS Urinary bladder, left lateral wall, biopsy: ACUTE CYSTITIS WITH AREA OF MUCOSAL EROSION AND ASSOCIATED FIBRINOPURULENT EXUDATE NEGATIVE FOR MALIGNANCY CLINICAL CORRELATION RECOMMENDED RRB/raleigh Barnard [id number] CONTINUED ON NEXT PAGE RUN DATE: 03/19 11/03 [facility] PAGE 2 RU N TIME: 3980 Specimen Inquiry RUN USER: INTERFACE ------ ------SPEC #: [id number] PATIENT: SIOBHAN BARBOSA #[id number] (Continued) MACROSCOPIC The specimen is receive d in formalin, labeled with the patient's name, and identified as "left latera l bladder wall". The specimen consists of two mcintosh fragments of tissue measuri ng 0.25 and 0.35 cm, submitted for histologic evaluation. [facility] PER[facility] D AT [address] [address] [phone])[phone] MICROSCOPIC MICROSCOPIC PERFORMED A T [facility] All of the stains, including any controls performed, stain appropriately. [facility] [address] [place] [address] (p)[phone] PERFORMING SITE Diagnosis performed at : [facility] [address] [place] [phone] Signed SIGNATURE ON FILE Lev Davenport 04/01/18 0449 END OF REPORT
--- NOTE | 2019-05-25 21:51 | Diagnostic Imaging Report ---
EXAMINATION: Head CT without contrast. HISTORY:Fall. COMPARISON:None. TECHNIQUE: Multidetector axial images were obtained from the foramen magnum to the vertex without contrast. The images were reconstructed using brain and bone algorithms. Thin section brain images were reformatted into coronal and sagittal planes. Dose modulation, iterative reconstruction, and/or weight based adjustment of the mA/kV was utilized to reduce the radiation dose to as low as reasonably achievable. Intravenous contrast: None IMAGE QUALITY: Suboptimal evaluation due to motion artifacts. FINDINGS: Skull/scalp: Moderate right frontal scalp soft tissue edema/hematoma. No radiopaque foreign body or soft tissue emphysema. No acute depressed or displaced calvarial fracture. Parenchyma: Suboptimal evaluation due to motion artifact, despite the limitation no gross acute hemorrhage, mass or acute major vascular territorial infarct. Nonspecific bilateral frontoparietal few, scattered white matter hypodensity are likely related to small vessel ischemic changes. Arteries: No density suggestive of thrombosis. Mild atherosclerotic calcification in bilateral carotid siphon. Dural sinuses: No abnormal density suggestive of thrombosis. Ventricles: Mild compensated dilatation due to volume loss. No acute hydrocephalus. Extra-axial spaces: Extra-axial cystic lesion in the anterior aspect of left middle cranial fossa that approximately measures 2.5 x 3.9 x 1.6 cm with regional mass effect on left temporal lobe probably represents an arachnoid cyst. Brain volume: Mild generalized cerebral volume loss. Craniocervical junction: No mass, Chiari malformation, or basilar invagination. Sella: No mass. Paranasal/mastoid sinuses: Imaged portions unremarkable. IMPRESSION: 1. Moderate right frontal scalp edema/hematoma. No acute fracture. 2. Suboptimal evaluation due to motion artifacts, despite the limitation no gross acute intracranial abnormality. 3. Mild supratentorial white matter microvascular ischemic changes and mild generalized cerebral volume loss. 4. Left middle cranial fossa arachnoid cyst. Signed by: Dr. Tati Kruger M.D. on 05/25/2019 9:48 PM
--- NOTE | 2019-05-25 21:59 | Diagnostic Imaging Report ---
History: Fall. Comparison studies: None Technique: Axial images were obtained through the cervical region.. Coronal and sagittal images reconstructed from the axial data. Dose modulation, iterative reconstruction, and/or weight based adjustment of the mA/kV was utilized to reduce the radiation dose to as low as reasonably achievable. Intravenous contrast: None Findings: Fractures: None. Soft tissue injuries: None. Atlantoaxial articulation: Intact. Alignment: Loss of normal cervical lordosis is either positional or due to muscle spasm. No scoliosis. Cervicomedullary junction: No abnormalities. The foramen magnum is patent. Soft tissues: Subpleural thickening/scar in left lung apex. Vertebrae: Expected postoperative changes from prior posterior cervical spine decompression with multilevel laminectomy that extends from C3 to C6. No fractures, infection or neoplasm. Degenerative changes: C3-C4: Moderate degenerative disc disease. Mild left foraminal stenosis due to facet and uncovertebral arthrosis. C5-C6: Moderate degenerative disc disease. Mild left foraminal stenosis due to facet and uncovertebral arthrosis. C6-C7: Moderate degenerative disc disease. Mild left foraminal stenosis due to facet and uncovertebral arthrosis. C7-T1: Mild to moderate degenerative disc disease.. IMPRESSION: 1. No acute cervical spine fracture or dislocation. Loss of normal cervical lordosis is either positional or due to muscle spasm. 2. Ligament, spinal cord and or vascular abnormalities cannot be excluded on the basis of this examination. 3. Multilevel posterior cervical spine decompression with laminectomy from C3 to C6. 4. Cervical spondylosis as detailed above. Signed by: Dr. Tati Krugre M.D. on 05/25/2019 9:56 PM
[2019-05-25] MEDS ORDERED: BACITRACIN ZINC 0.9GM TP ONE (22:00)
[2019-05-25] MEDS ORDERED: ACETAMINOPHEN 325 MG TAB PO ONE (22:15)
== END 2019-05-25 23:47 | disposition home or self-care (01) ==
LOC: ER 20:41
DX: S00.81XA Abrasion of other part of head, initial encounter (principal); S00.83XA Contusion of other part of head, initial encounter; W05.0XXA Fall from non-moving wheelchair, initial encounter; Y92.129 Unspecified place in nursing home as the place of occurrence of the external cause
CPT/HCPCS: 70450; 72125; 99283

== ENCOUNTER 2019-08-14 16:52 | Inpatient (IN) | payer MEDICARE, OTHER ==
[~2019-08-14] VITALS: Ht 157.5 cm; Wt 81.6 kg
--- NOTE | 2019-08-14 17:49 | Diagnostic Imaging Report ---
EXAMINATION: FOOT COMPLETE BILATERAL INDICATION: Cellulitis COMPARISON: None FINDINGS: Right foot: Large soft tissue erosion on the medial aspect of the foot adjacent to the first metatarsal head. There is underlying erosive change and periosteal reaction involving the lateral aspect of the first metatarsal head and lateral aspect of the base of the great toe proximal phalanx, concerning for osteomyelitis. Scattered degenerative changes. Mild diffuse osteopenia. Severe diffuse atherosclerotic arterial calcifications. Small plantar calcaneal spur. Diffuse dorsal and plantar soft tissue swelling. Small focus of gas at the posterior calcaneus may also represent an additional soft tissue ulcer. Left foot: Cortical irregularity at the head of the third proximal phalanx, only seen on the AP view may represent age-indeterminate fracture. Diffuse foot soft tissue swelling. No specific radiographic evidence of acute osteomyelitis. Scattered degenerative changes. Diffuse osteopenia. Small plantar calcaneal spur. Severe diffuse atherosclerotic arterial calcifications. IMPRESSION: Multiple soft tissue ulcers and diffuse soft tissue swelling of the right foot with findings concerning for osteomyelitis at the base of the great toe proximal phalanx and first metatarsal head. Diffuse soft tissue swelling of the left foot without specific radiographic evidence of osteomyelitis. Possible age-indeterminate fracture of the head of the third proximal phalanx. Signed by: Isael Galeana MD on 08/14/2019 5:47 PM
[2019-08-14] MEDS ORDERED: KETOROLAC TROMETHAMINE 30 MG/ML VIAL IV STA (18:00)
[2019-08-14 18:08] LABS: BASOPHILS % 0.6 % (0.0-1.0); EOSINOPHILS # (AUTO) 0.2 (0.0-0.4); HEMATOCRIT 28.5 % (34.2-44.1); HEMOGLOBIN 8.7 g/dL (12.0-16.0); LYMPHOCYTES # (AUTO) 1.1 (1.0-3.2); LYMPHOCYTES % 20.6 % (18.0-39.1); MEAN CORPUSCULAR HEMOGLOBIN 29.3 pg (28-32); MEAN CORPUSCULAR HGB CONC 30.5 g/dL (31-35); MONOCYTES # (AUTO) 0.5 (0.2-0.8); MONOCYTES % 9.3 % (4.4-11.3); NEUTROPHILS # (AUTO) 3.4 (2.1-6.9); NEUTROPHILS % 64.9 % (38.7-80.0); RED BLOOD COUNT 2.97 x10e6/uL (3.6-5.1)
[2019-08-14 18:13] LABS: PLATELET COUNT 84 x10e3/uL (140-360)
[2019-08-14] MEDS ORDERED: KETOROLAC TROMETHAMINE 30 MG/ML VIAL ONE (18:18)
--- NOTE | 2019-08-14 18:21 | NUR ---
Wounds cleaned to lower extremities, heel protectors and wedge provided for pt.
[2019-08-14 18:29] LABS: ALBUMIN 2.2 g/dL (3.5-5.0); ALBUMIN/GLOBULIN RATIO 0.5 (0.8-2.0); ANION GAP 17.7 mmol/L (8-16); CALCIUM 8.9 mg/dL (8.4-10.2); CREATININE, SERUM 2.62 mg/dL (0.57-1.11); POTASSIUM 4.7 mmol/L (3.5-5.1)
[2019-08-14] MEDS ORDERED: VANCOMYCIN 1GM/NS 250 ML 250 ML IV STA (18:31)
[2019-08-14] MEDS ORDERED: ONDANSETRON HCL INJ 2MG/ML 2ML 2 MG/ML VIAL IV PRN (18:45)
[2019-08-14] MEDS ORDERED: MORPHINE SULFATE 2 MG/ML SYR 1ML IV PRN (18:45)
[2019-08-14] MEDS: CEFEPIME 1GM/NS 0.9% 50 ML 50 ML IV SCH (19:26)
[2019-08-14] MEDS: MORPHINE SULFATE INJ 4 MG/ML INJ 1ML IV PRN (22:20)
[2019-08-15] MEDS: MORPHINE SULFATE INJ 4 MG/ML INJ 1ML IV PRN (03:57)
[2019-08-15 06:46] LABS: BASOPHILS % 0.7 % (0.0-1.0); EOSINOPHILS # (AUTO) 0.2 (0.0-0.4); HEMATOCRIT 26.4 % (34.2-44.1); MEAN CORPUSCULAR HEMOGLOBIN 28.9 pg (28-32); MEAN CORPUSCULAR HGB CONC 30.3 g/dL (31-35); MEAN CORPUSCULAR VOLUME 95.3 fL (81-99); MONOCYTES # (AUTO) 0.5 (0.2-0.8); MONOCYTES % 8.2 % (4.4-11.3); NEUTROPHILS # (AUTO) 3.9 (2.1-6.9); NEUTROPHILS % 70.7 % (38.7-80.0); PLATELET COUNT 83 x10e3/uL (140-360); RED BLOOD COUNT 2.77 x10e6/uL (3.6-5.1)
[2019-08-15 06:58] LABS: ANION GAP 14.9 mmol/L (8-16); CALCIUM 8.8 mg/dL (8.4-10.2); CREATININE, SERUM 2.68 mg/dL (0.57-1.11); POTASSIUM 4.9 mmol/L (3.5-5.1)
--- NOTE | 2019-08-15 07:00 | NUR ---
Assumed care of pt after receiving report. Pt is sitting in the chair at bedside and eating breakfast, pt states that she wants more amharic toast. Called the kitchen and requested it. Pt is in NAD, REU and has no further needs at this time. Will cotinue to monitor and assess.
[2019-08-15] MEDS ORDERED: TRAMADOL HCL 50 MG TAB PO PRN (08:30)
[2019-08-15] MEDS ORDERED: SODIUM CHLORIDE 0.9% 1000ML 1,000 ML IV SCH (08:30)
[2019-08-15] MEDS ORDERED: HYDRALAZINE HCL 20 MG/ML VIAL IV PRN (08:30)
[2019-08-15] MEDS: ASCORBIC ACID 500 MG TAB PO SCH (09:25)
[2019-08-15] MEDS: FUROSEMIDE 40 MG TAB PO SCH (09:25)
[2019-08-15] MEDS: FAMOTIDINE 20 MG TAB PO SCH ×2 (09:25→16:09)
[2019-08-15] MEDS: FERROUS SULFATE 325 MG TAB PO SCH ×2 (09:25→16:09)
[2019-08-15] MEDS: RIFAXIMIN 550 MG TABLET PO SCH ×2 (09:25→20:35)
[2019-08-15] MEDS: SUCRALFATE 1 GM TAB PO SCH ×3 (09:25→20:34)
[2019-08-15] MEDS: ASPIRIN 81 MG CHEW TAB PO SCH (09:25)
[2019-08-15] MEDS: HYDROCODONE/APAP 5MG-325MG TAB PO PRN (09:25)
--- NOTE | 2019-08-15 10:46 | NUR ---
Pt wanted this RN to call her sister Rae and let her know that she was in the hospital [phone]
--- NOTE | 2019-08-15 10:59 | Diagnostic Imaging Report ---
Exam: KUB - 2 views Indication: Renal calculi Comparison: KUB of 12/07/2018 Findings: Unchanged left staghorn renal calculi. Left internal nephroureteral stent in place. Redemonstration of calcified gallstones and indwelling Kel Nitinol IVC filter. Extensive atherosclerotic arterial vascular calcifications. No acute osseous injury. Degenerative changes of the visualized spine and both hip joints. Impression: Left internal nephroureteral stent in good position. Unchanged left renal calculi. Signed by: Isael Galeana MD on 08/15/2019 10:56 AM
[2019-08-15] MEDS: BUPROPION HCL 100 MG TAB PO SCH ×2 (11:03→20:35)
[2019-08-15] MEDS: MORPHINE SULFATE 2 MG/ML SYR 1ML IV PRN ×2 (11:15→20:56)
--- NOTE | 2019-08-15 11:15 | NUR ---
Ultrasound at bedside to do doppler.
--- NOTE | 2019-08-15 11:21 | NUR ---
IV is infiltrated, fluids stopped and new IV will be obtained when doppler is finished
--- NOTE | 2019-08-15 11:23 | NUR ---
Wound care called to come and see pt.
[2019-08-15 13:25] VITALS: BP 102/44
[2019-08-15] MEDS ORDERED: VANCOMYCIN 1GM/NS 250 ML 250 ML IV SCH (15:00)
[2019-08-15] MEDS: VANCOMYCIN 1GM/NS 250 ML 250 ML IV SCH (16:37)
--- NOTE | 2019-08-15 16:41 | NUR ---
Pt does not want to wear her Telemetry box. Pt refused to have monitoring equipment on at all today.
--- NOTE | 2019-08-15 16:47 | NUR ---
Report to SABINE Bansal
--- NOTE | 2019-08-15 16:50 | NUR ---
Recvd patient from ER, AAOX3. Multiple pressure wounds on both legs, changed dressing, dressing changed on Suprapubic catheter site, denies any pain, no distress noted, call light in reach
[2019-08-15 17:16] VITALS: BP 126/58
[2019-08-15 17:41] VITALS: BP 126/58
--- NOTE | 2019-08-15 17:56 | NUR ---
RECEIVED ORDER FOR [facility]. MET W THE PT AT THE BEDSIDE. PT SIGNED CHOICE FOR [facility]. COPY PLACED IN CHART. JUAQUIN SPICER NOTIFIED OF EVAL.
[2019-08-15] MEDS: CEFEPIME 1GM/NS 0.9% 50 ML 50 ML IV SCH (19:30)
--- NOTE | 2019-08-15 19:48 | NUR ---
Received change of shift report from AM nurse. Walking rounds completed.
--- NOTE | 2019-08-15 19:49 | NUR ---
Patient sitting on the side of the bed. Pt coloring with no noted pain or distress noted.
[2019-08-15 20:00] VITALS: BP 107/52
[2019-08-15] MEDS: MIRTAZAPINE 15 MG TAB PO SCH (20:35)
[2019-08-15] MEDS: ONDANSETRON HCL INJ 2MG/ML 2ML 2 MG/ML VIAL IV PRN (20:56)
--- NOTE | 2019-08-15 22:09 | Consultation ---
DATE OF CONSULTATION: 08/15/2019 REASON FOR CONSULTATION: Cellulitis of bilateral lower extremities, concern of osteomyelitis. HISTORY OF PRESENT ILLNESS: Thank you so much for asking me to see this patient. This patient is known to me from previous admission. She is a 54-year-old white female, who had a complicated medical history and multiple admissions to the hospital. The patient who has history of liver cirrhosis, thrombocytopenia, chronic kidney disease, decubitus ulcer, debilitated from a fpc, comes in with bilateral feet looking worse with redness and swelling. The patient was sent here from [facility]. The patient stated she is not feeling well in general. Her legs are red and swollen in the last few days. She took some oral antibiotic at the fpc without any improvement. The patient at one point was in hospice. The patient is currently lying in bed comfortably. PAST MEDICAL HISTORY: As above. PAST SURGICAL HISTORY: Multiple abdominal surgeries. ALLERGIES: CEPHALEXIN, BUT SHE DOES WELL WITH OTHER CEPHALOSPORIN. SOCIAL HISTORY: There is no smoking, drug abuse, or alcohol abuse from fpc. FAMILY HISTORY: Denies. REVIEW OF SYSTEMS: GENERAL: She is just weak. HEENT: There is no headache or visual changes. GI: There is no nausea, no vomiting, no diarrhea. CARDIAC: There is no arrhythmia. NEUROLOGIC: Seizure activity. SKIN: There are several ulcers noted in the lower extremity with redness and swelling in bilateral lower legs. LABORATORY DATA: Cultures are still pending. White count 5.25, hemoglobin 8.7. Sodium 144, potassium 4.9, creatinine 2.68 with AST 59. MEDICATION LIST: She is currently on morphine p.r.n., Wellbutrin. She is on rifaximin, Lasix, furosemide. She was on cefepime 1 g a day. She received a dose of vancomycin. PHYSICAL EXAMINATION: GENERAL: She is currently alert, oriented, does not seem to be in acute distress. VITAL SIGNS: Stable, currently afebrile. HEENT: She is not icteric. NECK: Supple. CHEST: Clear. HEART: S1 and S2. No murmurs. ABDOMEN: Soft. Bowel sounds present. No tenderness. EXTREMITIES: There is erythema. There is edema in bilateral lower extremity. There are several superficial ulcers noted and scattered. There was erythema involving the whole foot all the way to [id number]. IMPRESSION AND PLAN: 1. Cellulitis, bilateral lower extremity, concern about ischemic ulcer. Superficial wound. Recommendation; agree with cefepime. Agree with vancomycin. We will adjust for kidney function. 2. Chronic kidney disease from history of liver cirrhosis. 3. Chronic kidney disease. 4. Superficial wound. Recommend wound care. 5. Complicated medical history of multiple abdominal surgeries before. The patient has lost weight significantly since last time I have seen her. 6. Protein malnutrition. We will discuss Internal Medicine. Discussed with medical team. We will follow with you. MD TULIO Jesus/KENAN /[id number]
[2019-08-16] VITALS (9 sets, daily range): BP systolic 98–170; BP diastolic 49–78
--- NOTE | 2019-08-16 07:00 | NUR ---
BEDSIDE SHIFT REPORT RECEIVED FROM SABINE ANDRADE. PT DENIES NEEDS AT THIS TIME.
[2019-08-16 07:16] LABS: BASOPHILS % 0.5 % (0.0-1.0); EOSINOPHILS # (AUTO) 0.2 (0.0-0.4); EOSINOPHILS % 3.5 % (0.0-6.0); HEMATOCRIT 27.7 % (34.2-44.1); HEMOGLOBIN 8.3 g/dL (12.0-16.0); LYMPHOCYTES % 16.9 % (18.0-39.1); MEAN CORPUSCULAR VOLUME 96.9 fL (81-99); MONOCYTES # (AUTO) 0.4 (0.2-0.8); MONOCYTES % 7.3 % (4.4-11.3); NEUTROPHILS # (AUTO) 4.2 (2.1-6.9); NEUTROPHILS % 71.5 % (38.7-80.0); PLATELET COUNT 71 x10e3/uL (140-360); RED BLOOD COUNT 2.86 x10e6/uL (3.6-5.1); RED CELL DISTRIBUTION WIDTH 17.1 % (11.7-14.4)
[2019-08-16 07:21] LABS: ANION GAP 13.5 mmol/L (8-16); CALCIUM 8.6 mg/dL (8.4-10.2); CREATININE, SERUM 2.47 mg/dL (0.57-1.11); POTASSIUM 4.5 mmol/L (3.5-5.1)
[2019-08-16 07:45] LABS: THYROID STIMULATING HORMONE 8.423 uIU/mL (0.350-4.940)
[2019-08-16] MEDS: FERROUS SULFATE 325 MG TAB PO SCH ×2 (08:07→16:20)
[2019-08-16] MEDS: SUCRALFATE 1 GM TAB PO SCH ×4 (08:07→20:01)
[2019-08-16] MEDS: ASPIRIN 81 MG CHEW TAB PO SCH (08:07)
[2019-08-16] MEDS: HYDROCODONE/APAP 5MG-325MG TAB PO PRN (08:08)
[2019-08-16] MEDS: FAMOTIDINE 20 MG TAB PO SCH ×2 (08:08→16:20)
[2019-08-16] MEDS: RIFAXIMIN 550 MG TABLET PO SCH ×2 (08:08→20:01)
[2019-08-16] MEDS: BUPROPION HCL 100 MG TAB PO SCH ×2 (08:08→20:01)
[2019-08-16] MEDS: ASCORBIC ACID 500 MG TAB PO SCH (08:08)
[2019-08-16] MEDS: FUROSEMIDE 40 MG TAB PO SCH (08:12)
[2019-08-16] MEDS: MORPHINE SULFATE 2 MG/ML SYR 1ML IV PRN ×3 (09:47→20:47)
[2019-08-16] MEDS ORDERED: SODIUM HYPOCHLORITE 0.25% 480 ML SOLN IR ONE (10:00)
--- NOTE | 2019-08-16 14:13 | Consultation ---
DATE OF CONSULTATION: 08/16/2019 REASON FOR CONSULTATION: Multiple lower extremity ulcerations. HISTORY OF PRESENT ILLNESS: This is a 54-year-old female with past medical history of liver cirrhosis, thrombocytopenia, chronic kidney disease, multiple ulcerations of bilateral lower extremities. The patient was most recently at [facility]. The patient has had multiple hospital admissions over the past month for similar occurrences to infections and wounds to bilateral lower extremities as well as the decubitus ulcer. The patient also has hospice care. The patient currently relates to moderate pain to bilateral lower extremities. Currently denies nausea, vomiting, fever, chills, chest pain, or shortness of breath. PAST MEDICAL HISTORY: Chronic kidney disease, thrombocytopenia, liver cirrhosis, multiple bilateral lower extremity ulcerations. PAST SURGICAL HISTORY: Abdominal surgeries. ALLERGIES: TO CEPHALEXIN. SOCIAL HISTORY: Denies smoking, drinking, any illicit drug usage. FAMILY HISTORY: Noncontributory. REVIEW OF SYSTEMS: The patient currently denies nausea, vomiting, fever, chills, chest pain, or shortness of breath. PHYSICAL EXAMINATION: GENERAL: Alert and oriented x3, in no apparent distress. PROBLEM-FOCUSED LOWER EXTREMITY PHYSICAL EXAM: Vascular, dorsalis pedis and posterior tibial pulses are nonpalpable. Capillary refill time is delayed to all digits. Ischemic ulcerations are noted to bilateral lower extremities to the level of the digits with necrosis present. NEUROLOGICAL: Sensation is diminished to light touch bilateral, however, pain on palpation is noted to multiple bilateral lower extremity ulcerations. MUSCULOSKELETAL: The patient displays contractures at the knee and hip joint. DERMATOLOGICAL: Multiple superficial and deep ulcerations are noted to bilateral lower extremities from the digits to the level of the tibial tuberosity. The largest of the wounds is on the dorsum of the right foot, which reveals deep fibrotic as well as necrotic tissue extending to the level of the second digit. Again, multiple combination of superficial and deep ulcerations with periwound erythema, edema to the level of the tibial tuberosity. LABORATORY DATA: White blood cell count is 5.9, hemoglobin 8.3, hematocrit 27.7, and platelet count is 71. Sodium 138, potassium 4.5, chloride 110, CO2 19, BUN 46, creatinine 2.47, glucose is 71. ASSESSMENT: 1. Bilateral chronic ischemic ulcerations with periwound erythema, edema, and warmth. 2. Peripheral vascular disease. 3. Chronic kidney disease. 4. Thrombocytopenia. 5. Hospice. PLAN: The patient was seen and evaluated. Discussed condition and treatment options with the patient in detail. Discussed the case with Infectious Disease. We will continue IV antibiotics and local wound care per Wound Care. At this point, I do not believe the patient would benefit from any significant intervention including amputation or wound debridements. Recommend current regimen. Podiatry Service will continue to monitor as an inpatient. ELVIRA Hernandez/MEAGANL /[id number]
--- NOTE | 2019-08-16 14:46 | NUR ---
WOUND CARE CONSULT 54 YO FEMALE HX OF OSTEO , EDEMA BILAT LE , RECENTLY ADMITTED TO [facility] ON MODERATE PUP STATUS AND INTERVENTIONS LABS: WBC- 5.56 , HGB- 8 , GLUCOSE 71 WOUND CULTURE OF RT LOWER LEG PENDING SKIN ASSESSMENT COMPLETE MULTIPLE STASIS ULCERATIONS NOTED AND DOCUMENTED ON WOUND ASSESSMENT SHEET . CURRENT ORDERS FOR DAKINS SOLUTION ORDERED FOR CURRENT CARE TO BILATERAL LOWER EXTREMITIES AND OPEN AREAS ON TOES . PATIENT HEALTH STATUS MUST INCREASE AND INFECTION RESOLVED FOR MORE AGGRESSIVE WOUND THERAPIES TO BE SUCCESSFUL Addendum: 08/16/19 at 1500 by Adair Esteves RN Amended: Links added.
--- NOTE | 2019-08-16 16:18 | Consultation ---
DATE OF CONSULTATION: 08/15/2019 Wound Consultation Thank you, Dr. Knott, for asking me to see this patient. This patient is known to me during previous hospitalizations at [facility]. HISTORY OF PRESENT ILLNESS: A 54-year-old female patient lives at [facility]. The patient has chronic nonhealing ulcer to bilateral lower extremity involving the malleolus, leg, feet, heel with chronic edema. The patient was recently treated at [facility] and discharged. retirement was declined by the insurance. The patient states that she was kicked out of the facility since they could not take care of her. The patient was under hospice care before. She has history of cirrhosis, thrombocytopenia, chronic kidney disease. She also has a chronic nonhealing ulcer to the sacrum. PAST MEDICAL HISTORY: Cirrhosis, peripheral vascular disease, chronic kidney disease, debility. ALLERGIES: TO CEPHALEXIN. PERSONAL HISTORY: History of smoking in the past. MEDICATIONS: Hydrocodone, bupropion 100 mg q.12, Carafate 1 g before meals and at bedtime, aspirin 81 mg daily, and Remeron. PHYSICAL EXAMINATION: VITAL SIGNS: Height is 62 inches, weight 180 pounds. HEENT: Normal. NECK: No JVD. LUNGS: Bilaterally air entry diminished. CVS: Normal. ABDOMEN: Soft. Mild ascites present. EXTREMITIES: Bilateral lower extremities, wound present, full-thickness ulcers involving both feet and heel and lateral malleolus and posterior calf. Wound has moderate slough with copious drainage. ASSESSMENT: Bilateral lower extremity ulcers with peripheral vascular disease and chronic edema from cirrhosis, hypoalbuminemia. PLAN: We will apply Adaptic, Dakin's with moistened 4 x 4, Kerlix, and tape. Thank you for consultation. MD PERFECTO Kingston/KENAN /[id number]
[2019-08-16] MEDS ORDERED: SODIUM CHLORIDE 0.9% 250ML 250 ML ONE (16:27)
--- NOTE | 2019-08-16 16:37 | NUR ---
Nutrition Intervention Note RD Recommendation(s) for Physician: -Damien BID for wound healing -Ensure Enlive daily -Continue current diet as ordered Plan of Care: RD following, monitoring for tolerance and adequacy Nutrition reason for involvement: Nutrition Risk Score (MST 2) RD Assessment (08/16/2019) Pt was admitted with osteomyelitits. Pt reports a good appetite and has been eating all of her meals. No weight loss reported and pt mentioned she usually weighs 166 lbs. However, pt currently has a weight of 180 lbs in chart. No N/V or chewing/swallowing issues. Pt was interested in Ensure. Pt also has chronic nonhealing ulcers per MD note; therefore, will provide Damien BID for wound healing. Will continue to monitor Principal Problems/Diagnoses: osteomyelitis PMH: liver cirrhosis, thrombocytopenia, CKD, decubitus ulcer GI: soft, non-tender abdomen Skin: chronic nonhealing ulcer per MD note Labs: BUN 46, Creat 2.47, Glu 71 Meds: carafate, lasix, pepcid, vitamin C, ferrous sulfate, zofran, vancomycin Ht: 65 inches (per pt) Wt: 180 lbs BMI: 30 kg/m2 IBW: 125 lbs Malnutrition Evaluation (08/16/2019) The patient does not meet criteria for a specified degree of malnutrition at this time. Will re-evaluate at follow-up as appropriate. Nutrition Prescription (Diet Order): cardiac diet Estimated Nutritional Needs: 7519-1475 calories/day (22-25 kcal/kg IBW) 85-114 g protein/day (1.5-2 g pro/kg IBW) Diet Adequacy: Meeting calorie needs, Meeting protein needs Tolerance: Tolerating PO Diet Education Needs Assessment: RD is available for diet education as needed Nutrition Care Level: low Nutrition Diagnosis: Increased nutrient needs related to increased demand for protein and kcal as evidenced by chronic nonhealing ulcer. Goal: Patient will meet 75-100% of estimated needs by follow up Progress: N/A Interventions: -sodium/fat - modified diet, Commercial beverage Monitoring/Evaluation: -Total energy intake, Total protein intake, Modified diet, Liquid supplement, Weight change Signed: Caroline Villasenor RD, LD
[2019-08-16] MEDS: VANCOMYCIN 1GM/NS 250 ML 250 ML IV SCH (16:41)
[2019-08-16] MEDS ORDERED: SODIUM HYPOCHLORITE 0.5% 480 ML BTL IR SCH (17:00)
--- NOTE | 2019-08-16 19:15 | NUR ---
patient received awake, alert, sitting up on side of bed. no c/o pain noted. pm assessment complete. call espino placed within reach. patient instructed to call for assistance when needed.
[2019-08-16] MEDS: CEFEPIME 1GM/NS 0.9% 50 ML 50 ML IV SCH (19:30)
[2019-08-16] MEDS: MIRTAZAPINE 15 MG TAB PO SCH (20:01)
[2019-08-17] VITALS (8 sets, daily range): BP systolic 90–139; BP diastolic 42–64
[2019-08-17 06:04] LABS: BASOPHILS % 0.8 % (0.0-1.0); EOSINOPHILS # (AUTO) 0.1 (0.0-0.4); EOSINOPHILS % 2.4 % (0.0-6.0); HEMATOCRIT 28.7 % (34.2-44.1); HEMOGLOBIN 8.6 g/dL (12.0-16.0); MEAN CORPUSCULAR HEMOGLOBIN 29.3 pg (28-32); MEAN CORPUSCULAR VOLUME 97.6 fL (81-99); MONOCYTES # (AUTO) 0.5 (0.2-0.8); MONOCYTES % 9.8 % (4.4-11.3); NEUTROPHILS # (AUTO) 3.3 (2.1-6.9); NEUTROPHILS % 66.4 % (38.7-80.0); PLATELET COUNT 57 x10e3/uL (140-360); RED BLOOD COUNT 2.94 x10e6/uL (3.6-5.1); RED CELL DISTRIBUTION WIDTH 17.3 % (11.7-14.4)
[2019-08-17 06:12] LABS: CALCIUM 8.6 mg/dL (8.4-10.2); CREATININE, SERUM 2.33 mg/dL (0.57-1.11)
[2019-08-17] MEDS: MORPHINE SULFATE 2 MG/ML SYR 1ML IV PRN (07:20)
--- NOTE | 2019-08-17 07:20 | NUR ---
PATIENT SITTING AT BED SIDE WATCHING TV, C/O PAIN AND WAS MEDICATED. DRESSING INTACT TO LOWER EXTREMITIES. SUPRAPUBIC CATHETER DRAINING YELLOW URINE. CALL LIGHT AT REACH.
[2019-08-17] MEDS: SUCRALFATE 1 GM TAB PO SCH ×4 (08:00→20:04)
[2019-08-17] MEDS: FUROSEMIDE 40 MG TAB PO SCH (09:38)
[2019-08-17] MEDS: ASPIRIN 81 MG CHEW TAB PO SCH (09:38)
[2019-08-17] MEDS: RIFAXIMIN 550 MG TABLET PO SCH ×2 (09:38→20:04)
[2019-08-17] MEDS: ASCORBIC ACID 500 MG TAB PO SCH (09:38)
[2019-08-17] MEDS: FERROUS SULFATE 325 MG TAB PO SCH ×2 (09:38→17:42)
[2019-08-17] MEDS: BUPROPION HCL 100 MG TAB PO SCH ×2 (09:38→20:04)
[2019-08-17] MEDS: FAMOTIDINE 20 MG TAB PO SCH ×2 (09:38→17:42)
--- NOTE | 2019-08-17 10:23 | NUR ---
CALL RECEIVED FROM LAB STATING THAT PATIENT HAS A ESBL IN WOUND. ISOLATION CART APPLIED. NOTIFIED AND NEW ORDER RECEIVED.
[2019-08-17] MEDS: ACETAMINOPHEN 325 MG TAB PO PRN (11:30)
--- NOTE | 2019-08-17 13:50 | NUR ---
PATIENT NOTED WITH TEMPERATURE OF 101.3. TYLENOL GIVEN ORDERED, TEMP RECHECKED WITH THE READING OF 99.1. WILL CLOSELY MONITOR.
[2019-08-17] MEDS: PIPERACILLIN/TAZO 2.25 GM 50 ML IV SCH ×2 (14:25→21:20)
[2019-08-17] MEDS: VANCOMYCIN 1GM/NS 250 ML 250 ML IV SCH (16:30)
--- NOTE | 2019-08-17 19:15 | NUR ---
Patient received awake, alert, sitting up on side of bed. no c/o pain noted at this time. dressings to bilateral feet c,d,i. pm assessment complete. call espino placed within reach. bed alarm on for safety. patient instructed to call for assistance when needed.
[2019-08-17] MEDS: MIRTAZAPINE 15 MG TAB PO SCH (20:04)
[2019-08-18] VITALS (8 sets, daily range): BP systolic 94–144; BP diastolic 48–64
[2019-08-18] MEDS: ONDANSETRON HCL INJ 2MG/ML 2ML 2 MG/ML VIAL IV PRN ×2 (00:35→05:40)
[2019-08-18] MEDS: MORPHINE SULFATE 2 MG/ML SYR 1ML IV PRN ×4 (00:35→21:30)
--- NOTE | 2019-08-18 02:40 | NUR ---
attempted to draw 0300 labs at this time but patient refused. pt states, " come back about 0500. "
[2019-08-18 05:51] LABS: BASOPHILS % 0.7 % (0.0-1.0); EOSINOPHILS # (AUTO) 0.1 (0.0-0.4); EOSINOPHILS % 2.2 % (0.0-6.0); HEMATOCRIT 26.7 % (34.2-44.1); HEMOGLOBIN 8.1 g/dL (12.0-16.0); LYMPHOCYTES # (AUTO) 1.2 (1.0-3.2); LYMPHOCYTES % 21.3 % (18.0-39.1); MEAN CORPUSCULAR HEMOGLOBIN 29.1 pg (28-32); MEAN CORPUSCULAR HGB CONC 30.3 g/dL (31-35); MONOCYTES # (AUTO) 0.6 (0.2-0.8); MONOCYTES % 11.3 % (4.4-11.3); NEUTROPHILS # (AUTO) 3.5 (2.1-6.9); NEUTROPHILS % 64.1 % (38.7-80.0); PLATELET COUNT 57 x10e3/uL (140-360); RED BLOOD COUNT 2.78 x10e6/uL (3.6-5.1); RED CELL DISTRIBUTION WIDTH 17.2 % (11.7-14.4)
[2019-08-18] MEDS: PIPERACILLIN/TAZO 2.25 GM 50 ML IV SCH ×3 (06:00→21:14)
[2019-08-18 06:18] LABS: ANION GAP 17.1 mmol/L (8-16); CALCIUM 8.8 mg/dL (8.4-10.2); CREATININE, SERUM 2.71 mg/dL (0.57-1.11); POTASSIUM 5.1 mmol/L (3.5-5.1)
--- NOTE | 2019-08-18 07:10 | NUR ---
PATIENT SITTING AT BED SIDE COLORING, NO COMPLAIN VOICED. DRESSING INTACT TO LOWER EXTREMITIES. BED IN LOWER POSITION, CALL LIGHT AT REACH.
[2019-08-18] MEDS: SUCRALFATE 1 GM TAB PO SCH ×4 (08:20→21:00)
[2019-08-18] MEDS: FERROUS SULFATE 325 MG TAB PO SCH ×2 (09:19→17:11)
[2019-08-18] MEDS: FUROSEMIDE 40 MG TAB PO SCH (09:19)
[2019-08-18] MEDS: ASCORBIC ACID 500 MG TAB PO SCH (09:19)
[2019-08-18] MEDS: FAMOTIDINE 20 MG TAB PO SCH ×2 (09:19→17:11)
[2019-08-18] MEDS: RIFAXIMIN 550 MG TABLET PO SCH ×2 (09:19→21:00)
[2019-08-18] MEDS: ASPIRIN 81 MG CHEW TAB PO SCH (09:19)
[2019-08-18] MEDS: BUPROPION HCL 100 MG TAB PO SCH ×2 (09:19→21:00)
[2019-08-18] MEDS: FLUCONAZOLE 100 MG TAB PO SCH (09:19)
--- NOTE | 2019-08-18 13:00 | NUR ---
DRESSING CHANGED TO LOWER EXTREMITIES ORDERED. PATIENT TOLERATED PROCEDURE WELL. IN BED WITH CALL LIGHT AT REACH.
--- NOTE | 2019-08-18 15:48 | NUR ---
WITH NO RESPONSE FROM [facility], GAVE SECOND CHOICE OPTIONS TO PATIENT FOR AVAILABLE SNF CHOICES SHE CHOOSE [facility], COMPLETED, RTF AND PAS[facility] AND FAXED TO FACILITY.
[2019-08-18] MEDS: VANCOMYCIN 1GM/NS 250 ML 250 ML IV SCH (16:34)
--- NOTE | 2019-08-18 16:54 | NUR ---
NOTIFIED CM, FACULTY RESEARCH PHYSICIAN AND [facility] THAT I STARTED SNF.
--- NOTE | 2019-08-18 17:05 | Progress Note ---
DATE: 08/18/2019 SUBJECTIVE: This is a 54-year-old female, past medical history of liver cirrhosis, thrombocytopenia, chronic kidney disease, and multiple ulcerations of bilateral lower extremities. The patient is seen at bedside this morning, resting comfortably, relates to pain in bilateral lower extremities. Denies nausea, vomiting, fever, chills, chest pain, or shortness of breath. PHYSICAL EXAMINATION: GENERAL: Alert and oriented x3, in no apparent distress. VITAL SIGNS: Today temperature is 97.8, heart rate 95, respiratory rate 18, blood pressure 141/64, and pulse ox 100 percent on room. PROBLEM FOCUSED LOWER EXTREMITY PHYSICAL EXAM: Vascular dorsalis pedis and posterior tibial pulses are nonpalpable. Capillary refill time delayed to all digits. Multiple ischemic ulcerations are noted to bilateral lower extremities to the level of digits with necrosis present. NEUROLOGICAL: Sensation is diminished to light touch, however, pain on palpation is noted to bilateral lower extremity ulcerations. MUSCULOSKELETAL: The patient displays contractures at the knee and hip joint. DERMATOLOGICAL: Bandages were not changed today. The dressings appear to be clean, dry, and intact. LABORATORY DATA: White blood cell count is 5.4, hemoglobin 8.1, hematocrit 26.7, and platelet count is 57. Sodium 141, potassium 5.1, chloride 108, CO2 of 21, BUN 70, creatinine 2.71. Hemoglobin A1c is 4.6. ASSESSMENT: 1. Bilateral chronic ischemic ulcerations with periwound cellulitis. 2. Peripheral vascular disease. 3. Chronic kidney disease. 4. Thrombocytopenia. PLAN: The patient was seen and evaluated, discussed condition and treatment options with the patient in detail. Agree with current IV antibiotics and wound care management per wound care. At this point, I do not believe the patient would benefit from wound debridements or peripheral amputations. Recommend IV antibiotics, local wound care. The plan for this patient will be discharged to a retirement facility for long-term IV antibiotics and wound care. The Podiatry Service will be signing off on this patient. Please re-consult if necessary. ELVIRA Hernandez/KENAN /[id number]
--- NOTE | 2019-08-18 19:15 | NUR ---
patient received awake, alert, sitting up on side of bed. no c/o pain noted. dressings to bilateral lower extremities c,d,i. pm assessment complete. call espino placed within reach. patient instructed to call for assistance when needed.
[2019-08-18] MEDS: MIRTAZAPINE 15 MG TAB PO SCH (21:00)
--- NOTE | 2019-08-18 21:30 | NUR ---
patient medicated with morphine 1mg ivp for c/o bilateral feet/leg pain 01/25 at this time.
[2019-08-19] VITALS (8 sets, daily range): BP systolic 104–131; BP diastolic 51–63
[2019-08-19] MEDS: MORPHINE SULFATE 2 MG/ML SYR 1ML IV PRN ×4 (02:10→20:30)
--- NOTE | 2019-08-19 02:10 | NUR ---
patient medicated with morphine 1mg ivp for c/o bilateral leg/feet pain 7/10 at this time.
--- NOTE | 2019-08-19 02:17 | Consultation ---
DATE OF CONSULTATION: 08/18/2019 Cardiology Consultation REQUESTING PHYSICIAN: Gray Knott MD REASON FOR CONSULTATION: Peripheral arterial disease. HISTORY OF PRESENT ILLNESS: This is a 54-year-old woman with cirrhosis and chronic kidney disease, who presents with multiple bilateral lower extremity wounds and cellulitis. The patient indicates that she lives at [facility]. She has had bilateral lower extremity wounds for the last several months. The patient is a poor historian, but it appears she was sent to [facility] ER from [facility] due to increased erythema and swelling of her lower extremities. A bilateral lower extremity arterial doppler was performed, which suggested aortoiliac disease bilaterally. Cardiology is consulted for further evaluation and peripheral angiogram. The patient denies any cardiac complaints. Denies chest pain, shortness of breath, palpitations, orthopnea, or PND. She denies any history of cardiac disease. REVIEW OF SYSTEMS: Negative except as per HPI. PAST MEDICAL HISTORY: 1. Cirrhosis. 2. Chronic kidney disease. 3. Thrombocytopenia. PAST SURGICAL HISTORY: 1. Multiple abdominal surgeries. 2. Eye surgery. 3. Skin graft. ALLERGIES: PLEASE SEE EMR. MEDICATIONS: Please see medication list. SOCIAL HISTORY: She states she quit smoking in March 2019. Previously smoked a pack a day since age of 15. Prior alcohol use. No illicit drugs. FAMILY HISTORY: Noncontributory to current illness. PHYSICAL EXAMINATION: VITAL SIGNS: Temperature 96.9 degrees, pulse is 76, respiratory rate 17, blood pressure 101/55, oxygen saturation 97% on room air. GENERAL: Chronically ill-appearing woman, well developed, well nourished. HEENT: Normocephalic, atraumatic. Pupils are equal. No scleral icterus. NECK: Supple. No thyromegaly or cervical lymphadenopathy. No carotid bruits. LUNGS: Clear to auscultation bilaterally. No wheezes or crackles. CARDIOVASCULAR: Normal rate, regular rhythm. No murmur. Normal S1, S2. ABDOMEN: Soft, nontender. EXTREMITIES: Erythematous. Lower extremities with dressing bilaterally. NEUROLOGIC: Nonfocal exam. LABORATORY DATA: WBC 5.4, hemoglobin 8.1, hematocrit 26.7, platelets 57. Sodium 141, potassium 5.1, chloride 108, CO2 of 21, BUN 70, creatinine 2.71. IMPRESSION: 1. Cellulitis. 2. Bilateral lower extremity wounds. 3. Chronic kidney disease. 4. Cirrhosis. 5. Peripheral arterial disease suggested by bilateral lower extremity arterial Doppler. RECOMMENDATIONS: Antibiotics per Infectious Disease. Continue wound care. The patient's estimated GFR is low and is worse than prior. Monitor closely. We will need to discuss with the patient options including risks and benefits of peripheral angiogram given findings on lower extremity arterial Doppler. Thank you for this consult. We will continue to follow. Cathy Rinaldi MD ABS/MODL /[id number]
[2019-08-19] MEDS: PIPERACILLIN/TAZO 2.25 GM 50 ML IV SCH ×3 (05:39→21:06)
[2019-08-19] MEDS: LEVOTHYROXINE SODIUM 75 MCG TAB PO SCH (05:40)
[2019-08-19] MEDS ORDERED: LEVOTHYROXINE SODIUM 25 MCG TABLET PO SCH (06:00)
--- NOTE | 2019-08-19 06:15 | NUR ---
patient medicated with morphine 1mg ivp for c/o bilat feet/leg pain 01/25 at this time. patients nose bleeding bright red blood. patient instructed to hold head back, applied ice pack and dry towel. patient states, " i've had many nose bleeds before. it will stop in a minute. "
--- NOTE | 2019-08-19 07:30 | NUR ---
PATIENT SITTING UP IN BED WITH SOME NOSE BLEEDING NOTED. PATIENT STATED THAT IT HAPPENS FROM TIME TO TIME AT HOME. PRESSURE APPLIED AND HEAD TILTED BACK, WILL CLOSELY MONITOR. BED IN LOWER POSITION, CALL LIGHT AT REACH.
[2019-08-19] MEDS: SUCRALFATE 1 GM TAB PO SCH ×4 (08:20→21:00)
--- NOTE | 2019-08-19 08:53 | NUR ---
PATIENT NOSE CONTINUED TO BLEED. MD NOTIFIED, NEW ORDERS RECEIVED. RAPID RESPONSE CALLED, ER DOCTOR AT BED SIDE, NEW ORDERS RECEIVED.
[2019-08-19] MEDS ORDERED: OXYMETAZOLINE HCL 0.05% NAS 1 SPRAY BTL ONE (09:00)
[2019-08-19] MEDS: FERROUS SULFATE 325 MG TAB PO SCH ×2 (09:20→17:36)
[2019-08-19] MEDS: FUROSEMIDE 40 MG TAB PO SCH (09:20)
[2019-08-19] MEDS: FAMOTIDINE 20 MG TAB PO SCH ×2 (09:20→17:36)
[2019-08-19] MEDS: RIFAXIMIN 550 MG TABLET PO SCH ×2 (09:20→21:00)
[2019-08-19] MEDS: FLUCONAZOLE 100 MG TAB PO SCH (09:20)
[2019-08-19] MEDS: ASCORBIC ACID 500 MG TAB PO SCH (09:20)
[2019-08-19] MEDS: BUPROPION HCL 100 MG TAB PO SCH ×2 (09:20→21:00)
--- NOTE | 2019-08-19 09:21 | NUR ---
EXTRACTOR PLANT OPERATOR AND CN AT BED SIDE. BLEEDING DECREASING. PATIENT ALERT AND VERBALLY RESPONSIVE. V/S 98.1-96-20-141/65 AND 95% ON RA.
[2019-08-19 09:28] LABS: INR 1.06
[2019-08-19 09:29] LABS: PARTIAL THROMBOPLASTIN TIME 36.2 seconds (23.8-35.5)
--- NOTE | 2019-08-19 09:30 | NUR ---
MEROCEL DRESSING APPLIED TO RIGHT NOSTRIL BY ER DRWilliams PATIENT IN BED HOLDING PRESSURE TO NOSE. CALL LIGHT AT REACH.
[2019-08-19] MEDS: ASPIRIN 81 MG CHEW TAB PO SCH (14:10)
--- NOTE | 2019-08-19 15:40 | NUR ---
PATIENT IN BED RESTING WITH EYES CLOSED, NO DISTRESS NOTED. NO BLEEDING NOTED AT THIS TIME. BED IN LOWER POSITION, CALL LIGHT AT REACH.
--- NOTE | 2019-08-19 16:27 | NUR ---
SPOKE WITH DR MALATHI DILLARD REGARDING ABNORMAL LAB RESULT, NEW ORDER RECEIVED.
--- NOTE | 2019-08-19 17:59 | Progress Note ---
DATE: 08/19/2019 SUBJECTIVE: Ms. Leach is lying in bed comfortably. REVIEW OF SYSTEMS: HEENT: Negative. PULMONARY: Negative. CARDIAC: Negative. The patient has been seen by Cardiology for peripheral vascular disease. Events noted. PHYSICAL EXAMINATION: GENERAL: Currently alert, oriented, does not seem to be in acute distress. VITAL SIGNS: Stable, currently afebrile. HEENT: Normocephalic, not icteric. NECK: Supple. CHEST: Clear. HEART: S1, S2. No S3, S4, or murmur. ABDOMEN: Soft. Bowel sounds present. No tenderness. No hepatosplenomegaly. EXTREMITIES: Leg seems to be better. The erythema has subsided. IMPRESSION: 1. Cellulitis, better. 2. Bilateral lower extremity wound. 3. Peripheral vascular disease. 4. Chronic kidney disease. 5. Liver cirrhosis. Continue with wound care. Continue antibiotic. Vascular workup per Cardiology. Colonization of multidrug resistant pathogen. Continue with Zosyn and Diflucan and vancomycin. We will follow level. We will follow with you. MD TULIO Jesus/MODL /[id number]
--- NOTE | 2019-08-19 19:15 | NUR ---
patient received awake, alert, lying quietly in bed. packing remains to patients nose with minimal bleeding noted. dressings to bilateral feet/legs c,d,i. pm assessment complete. patient instructed to call for assistance when needed.
--- NOTE | 2019-08-19 20:30 | NUR ---
patient medicated with morphine 1mg ivp for c/o bilateral feet/leg pain 01/25 at this time.
[2019-08-19] MEDS: MIRTAZAPINE 15 MG TAB PO SCH (21:00)
[2019-08-20] VITALS: BP 111/66
[2019-08-20] MEDS: ACETAMINOPHEN 325 MG TAB PO PRN (01:38)
[2019-08-20] MEDS: MORPHINE SULFATE 2 MG/ML SYR 1ML IV PRN ×3 (01:38→23:00)
--- NOTE | 2019-08-20 01:38 | NUR ---
patient medicated with tylenol 650mg po for temp 101.1 and morphine 1mg ivp for c/o bilateral feet/leg pain 7/10 at this time.
--- NOTE | 2019-08-20 03:00 | NUR ---
patient refuses 0300 lab draw. patient states, " you can draw my blood later. "
[2019-08-20] MEDS: PIPERACILLIN/TAZO 2.25 GM 50 ML IV SCH ×3 (05:05→21:40)
[2019-08-20] MEDS: LEVOTHYROXINE SODIUM 75 MCG TAB PO SCH (05:05)
--- NOTE | 2019-08-20 06:00 | NUR ---
b 6.9 call placed to and message left. waiting for return call.
[2019-08-20 06:09] LABS: BASOPHILS % 0.4 % (0.0-1.0); EOSINOPHILS # (AUTO) 0.1 (0.0-0.4); EOSINOPHILS % 0.9 % (0.0-6.0); LYMPHOCYTES # (AUTO) 1.2 (1.0-3.2); LYMPHOCYTES % 20.6 % (18.0-39.1); MEAN CORPUSCULAR HEMOGLOBIN 29.2 pg (28-32); MEAN CORPUSCULAR HGB CONC 30.5 g/dL (31-35); MEAN CORPUSCULAR VOLUME 95.8 fL (81-99); MONOCYTES # (AUTO) 0.5 (0.2-0.8); MONOCYTES % 8.8 % (4.4-11.3); NEUTROPHILS # (AUTO) 3.9 (2.1-6.9); NEUTROPHILS % 68.9 % (38.7-80.0); PLATELET COUNT 50 x10e3/uL (140-360); RED BLOOD COUNT 2.36 x10e6/uL (3.6-5.1); RED CELL DISTRIBUTION WIDTH 17.2 % (11.7-14.4)
[2019-08-20 06:25] LABS: HEMATOCRIT 22.6 % (34.2-44.1); HEMOGLOBIN 6.9 g/dL (12.0-16.0)
[2019-08-20 06:28] LABS: CALCIUM 8.8 mg/dL (8.4-10.2); CREATININE, SERUM 2.63 mg/dL (0.57-1.11)
--- NOTE | 2019-08-20 07:00 | NUR ---
Received patient sitting at the bedside. Respiration even and unlabored without SOB.Suprapubic catheter intact, in placed with yellow-colored urine to bag.Call light in reach.
[2019-08-20 08:00] VITALS: BP 108/51
[2019-08-20] MEDS: SUCRALFATE 1 GM TAB PO SCH ×4 (08:09→21:40)
[2019-08-20] MEDS: FERROUS SULFATE 325 MG TAB PO SCH ×2 (08:10→18:06)
[2019-08-20] MEDS: FLUCONAZOLE 100 MG TAB PO SCH (08:10)
[2019-08-20] MEDS: FAMOTIDINE 20 MG TAB PO SCH ×2 (08:10→18:06)
[2019-08-20] MEDS: BUPROPION HCL 100 MG TAB PO SCH ×2 (08:10→21:40)
[2019-08-20] MEDS: ASCORBIC ACID 500 MG TAB PO SCH (08:10)
[2019-08-20] MEDS: RIFAXIMIN 550 MG TABLET PO SCH ×2 (08:10→21:40)
[2019-08-20] MEDS: ASPIRIN 81 MG CHEW TAB PO SCH (09:00)
[2019-08-20 09:20] VITALS: BP 108/51
[2019-08-20] MEDS: FUROSEMIDE 40 MG TAB PO SCH (10:05)
[2019-08-20] MEDS ORDERED: SODIUM CHLORIDE 0.9% 250ML 250 ML IV ONE (11:00)
[2019-08-20] MEDS ORDERED: SODIUM CHLORIDE 0.9% 1000ML 1,000 ML IV SCH (11:00)
[2019-08-20 12:00] VITALS: BP 108/57
--- NOTE | 2019-08-20 15:30 | NUR ---
Bed bath given. Dressing to BLE is cleaned and changed. Respiration even and unlabored without SOB. Call light in reach. Denies pain at this time.
[2019-08-20 16:00] VITALS: BP 116/61
[2019-08-20] MEDS ORDERED: SODIUM CHLORIDE 0.9% 250ML 250 ML ONE ×3 (16:00→19:58)
--- NOTE | 2019-08-20 16:00 | NUR ---
Patient is to receive 2 units of PRBC for hgb of 6.9 as ordered. Consent is signed. First unit is initiated with pre-transfusion vital signs stable. Call light in reach.
--- NOTE | 2019-08-20 16:15 | NUR ---
Patient lying in bed with eyes closed. Respiration even and unlabored without SOB. No s/s of blood transfusion reaction noted at this time. Will continue to monitor. Call light in reach.
--- NOTE | 2019-08-20 18:30 | NUR ---
First unit of PRBC is finished with no s/s of acute reaction. Respiration even and unlabored without SOB. Call light in reach. VS stable.
--- NOTE | 2019-08-20 18:45 | NUR ---
Report given to newspaper or periodical editor. Patient is lying in bed with eyes closed. Respiration even and unlabored without SOB. Suprapubic catheter intact with cloudy yellow-colored urine to bag. Call light in reach.
--- NOTE | 2019-08-20 19:00 | NUR ---
Report given to night coordinator. Respiration even and unlabored without SOB. Call light in reach. Addendum: 08/20/19 at 1931 by Lorna Mcmullen RN Wrong patient charting.
[2019-08-20 20:00] VITALS: BP 124/56
[2019-08-20] MEDS: MIRTAZAPINE 15 MG TAB PO SCH (21:40)
[2019-08-20] MEDS: ONDANSETRON HCL INJ 2MG/ML 2ML 2 MG/ML VIAL IV PRN (23:00)
[2019-08-21] VITALS: BP 124/58
[2019-08-21] MEDS: ACETAMINOPHEN 325 MG TAB PO PRN (01:27)
[2019-08-21] MEDS: HYDROCODONE/APAP 5MG-325MG TAB PO PRN (01:34)
--- NOTE | 2019-08-21 02:00 | Consultation ---
DATE OF CONSULTATION: 08/20/2019 Hospital Consultation HISTORY OF PRESENT ILLNESS: I was kindly asked to see this 54-year-old woman for evaluation of epistaxis. The patient developed right-sided epistaxis, which necessitated nasal packing. She has also anemic prior to the episode of epistaxis and her nose was packed with Merocel packing. She has had a small amount of bleeding around the Merocel packing since it was placed. Prior to this episode, she has had no significant history of epistaxis. She has a long complicated medical history, which was reviewed in detail in the chart. PHYSICAL EXAMINATION: The tympanic membranes and external auditory canals were normal. She had Merocel packing in the right side of the nose. There was no fresh blood noted around the packing. The left side of the nose was unremarkable. Oral cavity examination was noncontributory. She had no blood along the posterior pharyngeal wall. There was no palpable cervical adenopathy. ASSESSMENT: 1. Epistaxis. 2. Anemia. 3. Coagulopathy secondary to cirrhosis. PLAN: I will leave nasal packing in place until patient is hemodynamically stable. MD RANDY Elena/MODL /[id number]
[2019-08-21 04:00] VITALS: BP 126/67
[2019-08-21 04:08] LABS: BASOPHILS % 0.4 % (0.0-1.0); EOSINOPHILS # (AUTO) 0.1 (0.0-0.4); EOSINOPHILS % 1.7 % (0.0-6.0); HEMATOCRIT 25.8 % (34.2-44.1); LYMPHOCYTES % 21.7 % (18.0-39.1); MEAN CORPUSCULAR HEMOGLOBIN 28.2 pg (28-32); MEAN CORPUSCULAR VOLUME 90.8 fL (81-99); MONOCYTES # (AUTO) 0.5 (0.2-0.8); MONOCYTES % 10.2 % (4.4-11.3); NEUTROPHILS # (AUTO) 3.1 (2.1-6.9); NEUTROPHILS % 65.6 % (38.7-80.0); RED BLOOD COUNT 2.84 x10e6/uL (3.6-5.1); RED CELL DISTRIBUTION WIDTH 19.1 % (11.7-14.4)
[2019-08-21 04:16] LABS: PLATELET COUNT 41 x10e3/uL (140-360)
[2019-08-21 04:23] LABS: ANION GAP 17.1 mmol/L (8-16); CALCIUM 8.6 mg/dL (8.4-10.2); CREATININE, SERUM 2.44 mg/dL (0.57-1.11); POTASSIUM 5.1 mmol/L (3.5-5.1)
--- NOTE | 2019-08-21 04:36 | NUR ---
0414 Lab called with platelets 41. [phone] Mary Ellis notified of lab alert. No new orders.
[2019-08-21] MEDS: PIPERACILLIN/TAZO 2.25 GM 50 ML IV SCH ×2 (05:53→13:45)
[2019-08-21] MEDS: LEVOTHYROXINE SODIUM 75 MCG TAB PO SCH (05:53)
[2019-08-21 06:24] LABS: PLATELET ESTIMATE MARKEDLY DECREASED
[2019-08-21 07:15] VITALS: BP 178/79
--- NOTE | 2019-08-21 07:15 | NUR ---
PATIENT SITTING UP IN BED WATCHING TV, NO DISTRESS NOTED. PACKING REMAINS TO RIGHT NOSTRIL WITH MINIMAL BLOOD NOTED. BED IN LOWER POSITION, CALL LIGHT AT REACH.
[2019-08-21 07:18] VITALS: BP 178/79
[2019-08-21] MEDS: SUCRALFATE 1 GM TAB PO SCH ×3 (08:03→16:30)
[2019-08-21] MEDS: FERROUS SULFATE 325 MG TAB PO SCH ×2 (09:11→17:23)
[2019-08-21] MEDS: BUPROPION HCL 100 MG TAB PO SCH (09:11)
[2019-08-21] MEDS: FAMOTIDINE 20 MG TAB PO SCH ×2 (09:11→17:23)
[2019-08-21] MEDS: ASCORBIC ACID 500 MG TAB PO SCH (09:11)
[2019-08-21] MEDS: RIFAXIMIN 550 MG TABLET PO SCH (09:11)
[2019-08-21] MEDS: FUROSEMIDE 40 MG TAB PO SCH (09:11)
[2019-08-21] MEDS: MORPHINE SULFATE 2 MG/ML SYR 1ML IV PRN ×2 (11:20→17:20)
--- NOTE | 2019-08-21 11:22 | NUR ---
DRESSING CHANGED TO BOTH LEGS ORDERED. PATIENT C/O PAIN, MEDICATED. IN BED WITH CALL LIGHT AT REACH.
--- NOTE | 2019-08-21 11:28 | NUR ---
[facility] FACILITY DISCHARGE INFORMATION PATIENT HAS BEEN ACCEPTED TO: [facility] NAME: [facility] ADDRESS:[id number] MD: MARY ROOM: 204 NURSE CALL REPORT TO: [phone] IMM SIGNED AND OBTAINED (if applicable): THE FOLLOWING DOCUMENTS MUST ACCOMPANY PATIENT FOR TRANSFER: COPIED CHART:
[2019-08-21 11:34] VITALS: BP 131/60
[2019-08-21] MEDS ORDERED: ONDANSETRON HCL 4 MG ORAL DISINTEGRATING TAB PO PRN (13:00)
[2019-08-21] MEDS ORDERED: SODIUM CHLORIDE 0.9% 250ML 250 ML ONE (14:07)
--- NOTE | 2019-08-21 14:46 | NUR ---
PLATELET TRANSFUSION STARTED ORDERED, STAYED WITH PATIENT FOR THE FIRST 15 MINUTES, NO REACTION OBSERVED. WILL CLOSELY MONITOR.
[2019-08-21 15:09] VITALS: BP 113/82
--- NOTE | 2019-08-21 15:19 | NUR ---
EDUCATED ABOUT IMM, SIGNED, FILED IN CHART, WITH COPY LEFT WITH FAMILY AT BEDSIDE.
--- NOTE | 2019-08-21 15:30 | NUR ---
PLATELET TRANSFUSION COMPLETED, NO REACTION NOTED.
--- NOTE | 2019-08-21 18:34 | NUR ---
PATIENT IS ABOUT TO BE TRANSFERRED TO [facility]WAY FACILITY. REPORT CALLED AND GIVEN TO RECEIVING NURSE.
--- NOTE | 2019-08-21 21:06 | Progress Note ---
DATE: 08/21/2019 Cardiology Progress Note. SUBJECTIVE: No major events. No chest pain. No shortness of breath. OBJECTIVE: VITAL SIGNS: Temperature afebrile, pulse 91, respiratory rate 20, blood pressure 113/82, and saturating 97% on room air. GENERAL: Middle-aged female, well developed, well nourished. CARDIOVASCULAR: Regular rate and rhythm. No murmurs, rubs, or gallops. LUNGS: Clear to auscultation. ABDOMEN: Soft, nontender, nondistended, obese. NEURO AND PSYCH: Alert and oriented. INPATIENT MEDICATIONS: Reviewed. LABORATORY DATA: Reviewed, notable for a hemoglobin of 6.9 yesterday, now 8.0 after transfusion, platelet count of 41 and creatinine is 2.44. IMAGING DATA: Reviewed lower extremity Dopplers suggestive of lower extremity peripheral arterial disease. ASSESSMENT AND PLAN: 1. Cellulitis. 2. Bilateral lower extremity wounds. 3. Peripheral arterial disease. 4. Chronic kidney disease. 5. Cirrhosis. RECOMMENDATIONS: Continue wound care per primary team. Although the patient has peripheral arterial disease and lower extremity nonhealing wound, given extremely low hemoglobin and platelets as well as very poor renal function, the patient is not a good candidate for invasive management. Recommend treating conservatively with wound care. Thank you for this consult. We will continue to follow. MD ALVERTO Koch/KENAN /[id number]
[2019-08-21] MEDS ORDERED: SALINE 0.65% NAS SOLN 1 SPRAY BTL SCH (22:00)
--- NOTE | 2019-08-22 05:31 | Discharge Summary ---
ADMISSION DIAGNOSES: Chronic bilateral lower extremity wounds with cellulitis and arterial ulcers, cirrhosis, hypothyroidism, obesity with a BMI of 32.9, anxiety, depression, chronic kidney disease stage 3. DISCHARGE DIAGNOSES: Chronic bilateral lower extremity wounds with cellulitis and arterial ulcers, cirrhosis, hypothyroidism, obesity with a BMI of 32.9, anxiety, depression, chronic kidney disease stage 3, peripheral arterial disease, candiduria, extended-spectrum beta-lactamases of the urine, Pseudomonas of the urine, all present on admission, extended-spectrum beta-lactamases, Pseudomonas, Enterobacter, and Staph of the wound present on admission. HISTORY: Cirrhosis due to hep C, which was treated, CKD stage 3, hypothyroidism, urinary incontinence, anxiety, depression, kidney stones, meningitis, claustrophobia. SURGICAL HISTORY: Sacral skin graft. FAMILY HISTORY: The patient's father and brother had diabetes. The patient's mother had cancer. SOCIAL HISTORY: Noncontributory. HOSPITAL COURSE: A 54-year-old female admits with chronic bilateral lower extremity wounds. She admits to having white drainage, but denies fever. She was recently at [facility] and sent home with hospice/home health. She says [facility] sent her to the hospital and told her to get her feet fixed before coming back. She uses a wheelchair due to her wounds. On admission, the patient was started on cefepime and ID was consulted as well as Podiatry. Foot x-ray showed multiple soft tissue ulcers and diffuse soft tissue swelling of the right foot with findings concerning for osteomyelitis of the base of the great toe proximal phalanx and first metatarsal head. Bilateral lower extremity arterial Doppler showed abnormal monophasic Doppler wave of the lower extremity arteries starting from the femoral artery indicating severe bilateral iliacs or distal abdominal aorta disease. Wound cultures came back positive for ESBL, Pseudomonas, Enterobacter, and Staph. Per ID recommendation, it is possible that the patient is colonized and not infected as her white count is normal and she has no fever, although the antibiotics continued while in the hospital. Her urine culture came back positive for Pseudomonas, ESBL, and Lynne. She was treated with fluconazole. She has a chronic suprapubic catheter, which could be is colonized as well. Cardiology was consulted, but due to the poor renal function, the patient and Cardiology does not think that an angiogram is worth the risk at this point. Prior to discharge, the patient developed a nosebleed. Rapid Response was called. The patient's hemoglobin dropped 2 points requiring transfusion. ENT was consulted, who said to leave the nasal packing in place which was placed by the ER doctor during the Rapid Response. At the time of discharge, the bleeding has stopped and the packing is removed. The patient will discharge to [facility] after receiving 1 unit of platelets due to thrombocytopenia due to her chronic cirrhosis. The patient understands the risks associated with an angiogram and does not accept the risks. She understands the wounds will be unlikely to heal without this angiogram. She will discharge to [facility] for continued wound care. The patient understands discharge instructions and agrees to plan. IV antibiotics per Infectious Disease. Dictated by Mary Ellis NP MD IVY Berkowitz/MODJace /[id number]
[2019-08-22] MEDS ORDERED: MUPIROCIN 2% OINT 22 GM TUBE TOP SCH (09:00)
--- NOTE | 2019-08-23 11:18 | Progress Note ---
DATE: 08/20/2019 Cardiology Progress Note. SUBJECTIVE: The patient complains of fatigue. Nosebleed now resolved. OBJECTIVE: VITAL SIGNS: Temperature 96.1, pulse 84, respiratory rate 18, blood pressure 108/51, oxygen saturation 97% on room air. GENERAL: Alert and oriented x3. Resting comfortably on the side of the bed, does not appear to be in any acute distress. NECK: Supple. No JVD noted. LUNGS: Diminished breath sounds throughout with scattered rhonchi and crackles. ABDOMEN: Soft, nontender. EXTREMITIES: Lower extremities, edema, redness, and wounds, right greater than left. CARDIOVASCULAR: Regular rate and rhythm. Normal S1, S2. CARDIOVASCULAR MEDICATIONS: 1. Lasix 40 mg p.o. daily. 2. Aspirin 81 mg p.o. daily. LABORATORY DATA: WBC 5.5, hemoglobin 6.9, hematocrit 22.6, platelets 50. Sodium 143, potassium 5.0, BUN 70, creatinine 2.63, magnesium 2.2. TELEMETRY: Normal sinus rhythm. ASSESSMENT: 1. Liver cirrhosis. 2. Cellulitis. 3. Bilateral lower extremities wounds. 4. Chronic kidney disease. 5. Peripheral artery disease as per bilateral lower extremities arterial Doppler. 6. Thrombocytopenia. 7. Anemia. 8. Nosebleed. RECOMMENDATION: Hold aspirin for now. Antibiotics per Infectious Disease. Continue wound care. Given kidney disease above, we will need to discuss risks and benefits of peripheral angiogram with the patient. For now, continue to monitor. Dictated by Kiki Benítez NP MD AVA Pablo/KENAN /[id number]
--- NOTE | 2019-08-23 11:23 | Progress Note ---
DATE: 08/19/2019 Cardiology Progress Note. SUBJECTIVE: The patient reports nose bleeding that started around 7 o'clock this morning and has not stopped. She also reports bilateral lower extremity swelling, pain, and wounds. Denies any chest pain or shortness of breath. Rapid response was called this morning and they are working on packing her right nostril where the bleeding is persistent. OBJECTIVE: VITAL SIGNS: Temperature 97.9, pulse 89, respiratory rate 22, blood pressure 131/63, and oxygen saturation 95% on room air. GENERAL: Alert and oriented x3. Resting comfortably in bed. Continues to be holding pressure to her nostril. NECK: Supple. No JVD noted. CARDIOVASCULAR: Normal rate and rhythm. No murmurs, no gallops. LUNGS: Diminished breath sounds. Posterior lower lobes with scattered crackles and rhonchi. ABDOMEN: Soft and nontender. EXTREMITIES: Lower extremities erythematous with bilateral lower extremity edema, right greater than left. Has multiple wounds with dressing and drainage noted. CARDIOVASCULAR MEDICATIONS: 1. Aspirin 81 mg p.o. daily. 2. Furosemide 40 mg p.o. daily. LABORATORY DATA: INR 1.06. PT 14.0. Other labs from this morning pending. TELEMETRY: Sinus rhythm. ASSESSMENT: 1. Cellulitis. 2. Bilateral lower extremity wounds. 3. Chronic kidney disease. 4. Cirrhosis. 5. Peripheral arterial disease as per bilateral lower extremity arterial Dopplers. PLAN: Continue wound care and antimicrobial therapy per Infectious Disease. The patient's GFR is lower than her prior admissions. We will continue to monitor this closely. Depending on the renal function, we will need to discuss with the patient's options of management of her PAD risk and benefits. Continue to monitor nosebleed and monitor CBC closely. We will continue to follow this patient very closely. Dictated by Kiki Benítez, JOE MD AVA Pablo/KENAN /[id number]
== END 2019-08-21 19:10 | DRG 300 ==
LOC: ER 16:52 → ERHOLD 18:31 → MED/SURG3 08-15 17:05
PROVIDERS: ADMIT Internal Medicine; ATTEND Internal Medicine
PROC: 30230R1 Transfusion of Nonautologous Platelets into Peripheral Vein, Open Approach (ICD-10-PCS; principal; 2019-08-20)
PROC: 30230N1 Transfusion of Nonautologous Red Blood Cells into Peripheral Vein, Open Approach (ICD-10-PCS; 2019-08-20)
DX: I83.228 Varicose veins of left lower extremity with both ulcer of other part of lower extremity and inflammation (principal); T83.510A Infection and inflammatory reaction due to cystostomy catheter, initial encounter; L03.115 Cellulitis of right lower limb; L97.818 Non-pressure chronic ulcer of other part of right lower leg with other specified severity; E46 Unspecified protein-calorie malnutrition; Z16.12 Extended spectrum beta lactamase (ESBL) resistance; B37.49 Other urogenital candidiasis; I83.218 Varicose veins of right lower extremity with both ulcer of other part of lower extremity and inflammation; N18.3 Chronic kidney disease, stage 3 (moderate); I73.9 Peripheral vascular disease, unspecified; D69.6 Thrombocytopenia, unspecified; Z68.32 Body mass index [BMI] 32.0-32.9, adult; K74.69 Other cirrhosis of liver; B19.20 Unspecified viral hepatitis C without hepatic coma; I12.9 Hypertensive chronic kidney disease with stage 1 through stage 4 chronic kidney disease, or unspecified chronic kidney disease; F32.9 Major depressive disorder, single episode, unspecified; E03.9 Hypothyroidism, unspecified; B96.5 Pseudomonas (aeruginosa) (mallei) (pseudomallei) as the cause of diseases classified elsewhere; B95.8 Unspecified staphylococcus as the cause of diseases classified elsewhere; F41.9 Anxiety disorder, unspecified; M24.562 Contracture, left knee; M24.561 Contracture, right knee; R04.0 Epistaxis; D64.9 Anemia, unspecified
CPT/HCPCS: 36415; 74018; 80048; 80053; 80202; 83036; 83735; 84443; 85025; 85610; 85730; 86850; 86900; 86920; 87040; 87071; 87086; 87186; 87205; 93925; 97139; 99284; J0692; J1885; J2270; J2405; J2543; J3370; J7030; J7050; P9016; P9034

== ENCOUNTER → 2019-08-25 | Outpatient (CLI) | payer OTHER ==
[2019-08-25 14:57] LABS: HEMATOCRIT 30.1 % (34.2-44.1); HEMOGLOBIN 9.1 g/dL (12.0-16.0)
[2019-08-25 15:07] LABS: CREATININE, SERUM 2.59 mg/dL (0.57-1.11)
== END ==
LOC: DX 14:36
PROVIDERS: ATTEND Internal Medicine
DX: L03.119 Cellulitis of unspecified part of limb (principal); B18.2 Chronic viral hepatitis C; J44.9 Chronic obstructive pulmonary disease, unspecified; N18.9 Chronic kidney disease, unspecified; E03.9 Hypothyroidism, unspecified
CPT/HCPCS: 36415; 82565; 84520; 85014; 85018; 85049

== ENCOUNTER 2019-10-30 19:32 | Inpatient (IN) | payer MEDICARE, OTHER ==
[~2019-10-30] VITALS: Ht 157.5 cm; Wt 77.6 kg
[2019-10-30 20:44] LABS: BASOPHILS % 0.4 % (0.0-1.0); EOSINOPHILS # (AUTO) 0.1 (0.0-0.4); EOSINOPHILS % 1.2 % (0.0-6.0); HEMATOCRIT 24.3 % (34.2-44.1); HEMOGLOBIN 7.5 g/dL (12.0-16.0); LYMPHOCYTES % 19.1 % (18.0-39.1); MEAN CORPUSCULAR HEMOGLOBIN 29.6 pg (28-32); MEAN CORPUSCULAR HGB CONC 30.9 g/dL (31-35); MONOCYTES # (AUTO) 0.6 (0.2-0.8); MONOCYTES % 11.8 % (4.4-11.3); NEUTROPHILS # (AUTO) 3.5 (2.1-6.9); NEUTROPHILS % 67.1 % (38.7-80.0); PLATELET COUNT 84 x10e3/uL (140-360); RED BLOOD COUNT 2.53 x10e6/uL (3.6-5.1); RED CELL DISTRIBUTION WIDTH 16.1 % (11.7-14.4)
[2019-10-30 20:50] LABS: INR 1.11
[2019-10-30 20:51] LABS: PARTIAL THROMBOPLASTIN TIME 53.6 seconds (23.8-35.5)
[2019-10-30 21:00] LABS: ALANINE AMINOTRANSFERASE 31 IU/L (0-55); ALBUMIN 2.1 g/dL (3.5-5.0); ALBUMIN/GLOBULIN RATIO 0.5 (0.8-2.0); ALKALINE PHOSPHATASE 748 IU/L (40-150); ANION GAP 13.5 mmol/L (8-16); BLOOD UREA NITROGEN 73 mg/dL (7-26); BUN/CREATININE RATIO 28 (6-25); CARBON DIOXIDE 20 mmol/L (22-29); CHLORIDE 108 mmol/L (98-107); CREATINE KINASE 51 IU/L (29-168); CREATININE, SERUM 2.59 mg/dL (0.57-1.11); EST GLOMERULAR FILTRATION RATE 19 ML/MIN (60-); GLUCOSE 85 mg/dL (74-118); SODIUM 135 mmol/L (136-145)
[2019-10-30 21:05] LABS: POTASSIUM 6.5 mmol/L (3.5-5.1)
[2019-10-30] MEDS ORDERED: CALCIUM CHLORIDE 10% 1.36 MEQ/ML 10ML SYR IV STA (21:11)
[2019-10-30] MEDS ORDERED: DEXTROSE 50% SYRINGE 50 ML IV STA (21:11)
[2019-10-30] MEDS ORDERED: SODIUM BICARBONATE 8.4% INJ 50 ML SYR IV STA (21:11)
[2019-10-30] MEDS ORDERED: SOD POLYSTYRENE SULFONATE SUSP 15 GM/60 ML BTL PO ONE (21:15)
[2019-10-30] MEDS ORDERED: INSULIN REGULAR, HUMAN 100 UNIT/1 ML 3ML VIAL IV ONE (21:15)
[2019-10-30] MEDS ORDERED: CALCIUM CHLORIDE 13.6 MEQ in SODIUM CHLORIDE 0.9% 100 ML IV ONE (21:30)
[2019-10-30] MEDS ORDERED: PIPER-TAZ 3.375 GM 50 ML IV STA (22:03)
--- NOTE | 2019-10-30 22:06 | Diagnostic Imaging Report ---
EXAMINATION: CHEST SINGLE (PORTABLE) INDICATION: Cardiac arrest COMPARISON: Chest x-ray 03/18/2019 None FINDINGS: TUBES and LINES: None. LUNGS: Hyperinflated lungs. Left mid/lower lung haziness. Prominent central pulmonary vasculature. PLEURA: Suspect small left and trace right pleural effusions. No pneumothorax. HEART AND MEDIASTINUM: Cardiac size is mildly enlarged. BONES AND SOFT TISSUES: No acute osseous lesion. Soft tissues are unremarkable. UPPER ABDOMEN: No free air under the diaphragm. IMPRESSION: Mild cardiomegaly and pulmonary vascular congestion. Suspect small left and trace right pleural effusions Hyperinflated lungs as seen with pulmonary emphysema. Signed by: Dave Gomez DO on 10/30/2019 10:03 PM
[2019-10-30] MEDS: SODIUM CHLORIDE 0.9% 1000ML 1,000 ML IV ONE ×2 (22:09→22:29)
[2019-10-30 22:40] LABS: BILIRUBIN,URINE NEGATIVE (NEGATIVE); CLARITY,URINE CLOUDY (CLEAR); COLOR,URINE YELLOW (YELLOW); KETONES,URINE NEGATIVE (NEGATIVE); LEUKOCYTE ESTERASE ,URINE 1+ (NEGATIVE); NITRITE,URINE POSITIVE (NEGATIVE); PROTEIN,URINE DIPSTICK 1+ (NEGATIVE); URINE UROBILINOGEN 0.2 mg/dL (0.2 - 1)
[2019-10-30 23:07] LABS: BACTERIA,URINE MANY /HPF; EPITHELIAL CELLS,URINE FEW /LPF; RBC,URINE >50 /HPF (0-5); WBC,URINE (MAN) >50 /HPF (0-5)
[2019-10-30] MEDS ORDERED: ONDANSETRON HCL INJ 2MG/ML 2ML 2 MG/ML VIAL IV PRN (23:30)
[2019-10-31] VITALS (10 sets, daily range): BP systolic 95–135; BP diastolic 47–78
[2019-10-31] MEDS: FUROSEMIDE INJ 10 MG/ML 4 ML VIAL IV SCH ×3 (00:13→22:50)
[2019-10-31] MEDS: SODIUM CHLORIDE FLUSH 10 ML SYR INJ PRN (00:13)
[2019-10-31] MEDS ORDERED: ACETIC ACID15 ML TP (00:21)
[2019-10-31] MEDS ORDERED: GABAPENTIN300 MG PO (00:21)
[2019-10-31] MEDS ORDERED: NEOMYCIN SULFA500 MG PEG (00:25)
[2019-10-31] MEDS ORDERED: POTASSIUM CHLO20 ME1 PO (00:25)
[2019-10-31] MEDS ORDERED: REMERON15 MG PO (00:25)
[2019-10-31] MEDS ORDERED: TRAZODONE HCL50 MG PO (00:25)
[2019-10-31] MEDS ORDERED: LEVAQUIN500 MG PO (00:25)
[2019-10-31] MEDS ORDERED: ACETAMINOPHEN325 M1 PO (00:27)
[2019-10-31] MEDS ORDERED: TYLENOL WITH C1 EAC1 PO (00:27)
[2019-10-31] MEDS ORDERED: ACETAMINOPHEN 325 MG TAB PO PRN (01:00)
--- NOTE | 2019-10-31 07:00 | NUR ---
BEDSIDE SHIFT REPORT RECEIVED FROM NIGHT RN. PT DENIES NEEDS AT THIS TIME.
[2019-10-31 07:34] LABS: ALBUMIN/GLOBULIN RATIO 0.5 (0.8-2.0); ANION GAP 12.4 mmol/L (8-16); CALCIUM 8.4 mg/dL (8.4-10.2); CREATININE, SERUM 2.61 mg/dL (0.57-1.11); POTASSIUM 5.4 mmol/L (3.5-5.1)
[2019-10-31 07:35] LABS: BASOPHILS % 0.3 % (0.0-1.0); EOSINOPHILS % 0.3 % (0.0-6.0); HEMATOCRIT 24.4 % (34.2-44.1); HEMOGLOBIN 7.4 g/dL (12.0-16.0); LYMPHOCYTES # (AUTO) 0.9 (1.0-3.2); LYMPHOCYTES % 13.5 % (18.0-39.1); MEAN CORPUSCULAR HEMOGLOBIN 29.6 pg (28-32); MEAN CORPUSCULAR HGB CONC 30.3 g/dL (31-35); MEAN CORPUSCULAR VOLUME 97.6 fL (81-99); MONOCYTES # (AUTO) 0.8 (0.2-0.8); MONOCYTES % 11.9 % (4.4-11.3); NEUTROPHILS # (AUTO) 5.1 (2.1-6.9); NEUTROPHILS % 73.6 % (38.7-80.0); PLATELET COUNT 72 x10e3/uL (140-360); RED CELL DISTRIBUTION WIDTH 16.2 % (11.7-14.4)
[2019-10-31] MEDS ORDERED: PIPERACILLIN/TAZO 2.25 GM 50 ML IV SCH (09:00)
--- NOTE | 2019-10-31 09:30 | NUR ---
Telephonic visit. Pt did not answer phone. Will follow up as able. GAYATHRI SWIFT Manufacturing Advisor Spiritual Care Department O: [phone]
[2019-10-31] MEDS ORDERED: VANCOMYCIN 1GM/NS 250 ML 250 ML IV ONE (10:30)
--- NOTE | 2019-10-31 11:00 | Consultation ---
DATE OF CONSULTATION: 10/31/2019 Pulmonary Critical Care Consultation. CHIEF COMPLAINT: Decreased responsiveness and possible COVID infection. HISTORY OF PRESENT ILLNESS: The patient is a 54-year-old woman. She has a complicated past medical history. She has cirrhosis with end-stage liver disease and recurrent ascites. She has also had hepatic encephalopathy in the past. She has chronic renal failure related to bilateral ureteral obstruction. She has been seen by Dr. Luna in the past and has had some interventions. She also has recurrent problems with her legs. She has severe peripheral edema as well as swelling and wounds. She has severe arterial insufficiency. She was recently hospitalized at [facility], but could not have the angiogram because of elevated creatinine. She now returns with worsening responsiveness. She has a low-grade fever to 100. She has no active bleeding. She has minimal cough. PAST SURGICAL HISTORY: 1. Status post urological interventions for bilateral ureteral obstruction. 2. Status post evacuation of a rectus hematoma. 3. History of eye surgery. 4. History of prior skin graft. PAST MEDICAL HISTORY: 1. Cirrhosis. 2. Chronic renal failure, stage 4. 3. Bilateral ureteral obstruction. 4. History of prior rectus hematoma, requiring surgical evacuation. 5. Thrombocytopenia. 6. Chronic leg edema. SOCIAL HISTORY: The patient was a prior smoker. She is a prior drinker. [facility]. FAMILY HISTORY: Noncontributory. ALLERGIES: THE PATIENT IS ALLERGIC TO CEPHALOSPORINS. REVIEW OF SYSTEMS: There is a history of possible fevers. She has decreased responsiveness. She is not complaining of any chest pain or difficulty breathing. She has worsening abdominal swelling and ascites. She has severe leg edema. PHYSICAL EXAMINATION: VITAL SIGNS: The patient is afebrile. The blood pressure is 101/65 and the saturation is 100%. The pulse is 103 and respiratory rate is 18. HEENT: No facial swelling or erythema. CARDIAC: Reveals a regular rate and rhythm with normal S1, S2. LUNGS: Auscultation of lungs reveals decreased breath sounds at the bases. There is no wheezing. The abdomen is distended. There is marked ascites. There is no tenderness. EXTREMITIES: Examination of the extremities shows 3+ leg edema. There are some wounds in the distal extremities. LABORATORY DATA: Hemoglobin is 7.4 with an MCV of 97.6. The platelet count is 72. The BUN to creatinine ratio is 77 to 2.61. The potassium is 5.4 and the carbon dioxide is 19. Urinalysis shows greater than 50 white blood cells, suggestive of urinary tract infections. RADIOGRAPHIC DATA: Chest x-ray shows cardiomegaly and pulmonary vascular congestion. There are hyperinflated lung quinones. IMPRESSION: 1. Urinary tract infection with severe sepsis, present on admission. 2. Cirrhosis. 3. Acute on chronic renal failure. 4. Ascites. 5. Thrombocytopenia. 6. Hepatic encephalopathy. 7. Severe peripheral vascular disease with poorly healing wounds and possible osteomyelitis. 8. Anemia secondary to chronic blood loss. PLAN: 1. The patient needs broad-spectrum antibiotics to cover for healthcare-acquired organisms. 2. Panculture patient and await results. 3. Nephrology consultation. 4. Monitor blood counts and transfuse as needed. 5. Check ammonia level. 6. Continue current treatment for hepatic encephalopathy and cirrhosis. PROGNOSIS: Remains very poor. Dalton Dill MD [facility]/MODL /[id number]
[2019-10-31] MEDS ORDERED: HYDRALAZINE HCL 20 MG/ML VIAL IV PRN (12:45)
[2019-10-31] MEDS ORDERED: ONDANSETRON HCL INJ 2MG/ML 2ML 2 MG/ML VIAL IV PRN (12:45)
[2019-10-31] MEDS ORDERED: TRAZODONE HCL 50 MG TAB PO PRN (12:45)
--- NOTE | 2019-10-31 13:56 | NUR ---
WOUND CARE CONSULT FOR 54 YO FEMALE HX OF fever,UTI BILATERAL LE CELLULITIS DORCAS 15 ON MODERATE PUP STATUS AND INTERVENTIONS AND ALTERNATING MATTRESS LABS: WBC-6.89 HGB_7.4 GLUCOSE-67 SKIN ASSESSMENT COMPLETE PATIENT PRESENTS WITH BILATERAL LOWER LEG CELLULITIS ,EDEMA, AND ULCERATIONS DESCRIPTIONS AND MEASUREMENTS LISTED ON WOUND ASSESSMENT SHEET MY RECOMMENDATIONS FOR WOUND CARE ARE FOR MORE MAINTENANCE R/T PATIENT DEBILITATED STATE RECOMMENDATIONS: NURSING TO CONTINUE TO MAINTAIN MODERATE PUP STATUS AND INTERVENTIONS AND VISCO MATTRESS NURSING TO CONTINUE TO ASSIST PATIENT OUT OF BED FOR MEALS AND MUCH TOLERATED NURSING TO CONTINUE TO ASSIST PATIENT NEEDED WITH MEALS AND NUTRITIONAL SUPPLEMENTS TO ENSURE PROPER REQUIREMENTS FOR HEALING NURSING TO CONTINUE TO OFFLOAD FEET AND HEELS NEEDED WITH PILLOW SUSPENSION WHEN IN BED NURSING TO CLEAN BILATERAL LOWER LEG ULCERATIONS WITH NORMAL SALINE DAILY AND APPLY BETADINE MOIST AARON AND 4X4S AND ABD PAD WRAP WITH KERLIX APPLY VENELEX OINTMENT TO HALIE WOUND AREA AND LEGS Addendum: 10/31/19 at 1408 by Adair Esteves RN Amended: Links added.
[2019-10-31] MEDS ORDERED: MEROPENEM 500MG/ NS 50ML 50 ML IV SCH (14:00)
[2019-10-31] MEDS: BALSAM PERU/CASTOR OIL 60 GM OINT...G. TP SCH (14:34)
--- NOTE | 2019-10-31 16:22 | Diagnostic Imaging Report ---
HISTORY: ^ckd COMPARISON: None. TECHNIQUE: Grayscale and color spectral Doppler ultrasound of the kidneys and bladder. FINDINGS: Extremely limited exam due to habitus/technique. The right kidney measures 9 x 4.3 x 3.8 cm. Cortical thickness measures 1.4 cm. No sonographically evident mass. Mild hydronephrosis. Renal artery and vein are patent. The left kidney measures 10.1 x 5.6 x 5.2 cm. Cortical thickness measures 1.4 cm. No sonographically evident mass or hydronephrosis. Multiple echogenic shadowing stones, with the largest measuring 1.7 cm in the midpole. Renal artery and vein are patent. Bladder: Contains a Gibson catheter; otherwise, unremarkable. Additional findings: Echogenic stones within the gallbladder. Spleen measures approximately 16 cm. IMPRESSION : 1. Mild right hydronephrosis. 2. Left nephrolithiasis, without hydronephrosis 3. Additional findings as above. Signed by: Jose Angel Bashir MD on 10/31/2019 4:19 PM
[2019-10-31] MEDS: DOCUSATE SODIUM 100 MG CAP PO SCH (17:00)
[2019-10-31] MEDS ORDERED: FAMOTIDINE 20 MG TAB PO SCH (17:00)
[2019-10-31] MEDS: FAMOTIDINE 20 MG/2 ML VIAL IV SCH (17:02)
[2019-10-31] MEDS: GABAPENTIN 300 MG CAP PO SCH (17:02)
[2019-10-31] MEDS: FERROUS SULFATE 325 MG TAB PO SCH (17:02)
[2019-10-31] MEDS: ASCORBIC ACID 500 MG TAB PO SCH (17:03)
--- NOTE | 2019-10-31 17:46 | Consultation ---
DATE OF CONSULTATION: 10/31/2019 Nephrology Consultation REASON FOR CONSULTATION: 1. Chronic kidney disease. 2. Hyperkalemia. HISTORY OF PRESENT ILLNESS: The patient is a 54-year-old white female, resident of a custodial with known history of chronic liver disease and cirrhosis as well as chronic kidney disease stage 4, blamed on obstructive uropathy. She was admitted through the ER yesterday evening with decreased mental responsiveness and perhaps low-grade fever. Urinalysis was suggestive of infection. She has so far received IV vancomycin, IV Zosyn, and is due to receive IV meropenem for UTI and sepsis. Her potassium last night was also elevated to 6.5, which does not seem to have responded to aggressive medical cocktail therapy. Her serum creatinine appears to be unchanged at least since 2019. She is making urine to IV Lasix. Chest x-ray did show pulmonary congestion and cardiomegaly. This consultation has been requested for management of her chronic kidney disease and hyperkalemia. Per imaging study back in 2019, the patient has had an indwelling J-stent in the left collecting system with a large staghorn calculus measuring 3.3 cm on the left side and at least mild hydronephrosis on the right. The patient is presently poorly responsive to verbal cues and unable to give any history. My information is gathered from reviewing of her present and old chart as well as talking to the RN taking care of her. PAST MEDICAL HISTORY: Decubitus ulcers of sacral region, stage IV, chronic kidney disease, bilateral lower leg cellulitis, urinary tract infection, cirrhosis of liver with ascites, osteomyelitis. I do not see diabetes mellitus. MEDICATIONS: Reviewed in SEP. SOCIAL HISTORY: Apparently, negative for alcohol or drug abuse. REVIEW OF SYSTEMS: Unable to obtain from patient. Reportedly, her admission symptoms consisted of low-grade fever and decreased responsiveness. PHYSICAL EXAMINATION: VITAL SIGNS: The patient was observed from a 6 foot distance considering the COVID pandemic. Her vitals were stable. Blood pressure 112/74, pulse 86 per minute, respiration 19 per minute, temperature 98.2, pulse oximetry 95%. GENERAL: She is awake, but not responsive to command. Does not appear in any respiratory distress. CARDIOVASCULAR: Appears to be stable. EXTREMITIES: Both lower legs are covered in an Anam wrap after some treatment. RN describes chronic cellulitis type skin changes rather than much in the way of pitting edema. IMAGING DATA: Chest x-ray reportedly with cardiomegaly and pulmonary congestion. LABORATORY DATA: Hemoglobin 7.4, white count normal, platelets low at 72,000. Most recent serum chemistry this morning shows sodium of 138, potassium 5.4, chloride 112, bicarb 19, anion gap 12, creatinine 2.6, BUN 77, glucose 67, calcium 8.4, albumin 2. Urinalysis shows cloudy urine, specific gravity 1.010, more than 50 white cells and red cells with only 1+ protein. Many bacteria seen in the urine. IMPRESSION: 1. Chronic kidney disease, presumably secondary to obstructive uropathy from stone disease. Renal function seems to be unchanged going back at least one and half years. She likely has stage 4 chronic kidney disease. I do not think her present mental status is related to uremia. 2. Likely urosepsis, being treated with broad-spectrum IV antibiotics. 3. Hyperkalemia, treated successfully with medical management. Currently making urine to IV Lasix, which should help in keeping the potassium level down. 4. Metabolic acidosis, secondary to chronic kidney disease. 5. Hypoalbuminemia secondary to chronic liver disease and cirrhosis. Possible hepatic encephalopathy. RECOMMENDATIONS: 1. Agree with present management as a primary team consisting of IV Lasix t.i.d. and broad-spectrum antibiotic directed at sepsis. High beta-natriuretic peptide level and chest x-ray finding consistent with at least some degree of congestive heart failure and fluid overload. We will repeat electrolytes tonight, with particular attention to serum potassium level. Monitor renal function and electrolytes daily. 2. Avoid all known nephrotoxins including aminoglycoside antibiotics, IV iodinated contrast as possible. Her anemia is likely secondary to chronic kidney disease, and can be addressed as outpatient. We will order intact PTH level, serum phosphorus, and vitamin D3 level. 3. We will follow patient and recommend as needed. Thank you for the opportunity to participate in her care. Diogenes Porras MD [facility]/MODL /[id number]
[2019-10-31 18:25] LABS: ANION GAP 12.9 mmol/L (8-16); CALCIUM 8.3 mg/dL (8.4-10.2); CREATININE, SERUM 2.76 mg/dL (0.57-1.11); POTASSIUM 4.9 mmol/L (3.5-5.1)
[2019-10-31] MEDS: MIRTAZAPINE 15 MG TAB PO SCH (22:50)
[2019-11-01] VITALS (9 sets, daily range): BP systolic 91–106; BP diastolic 45–57
[2019-11-01] MEDS: LEVOTHYROXINE SODIUM 75 MCG TAB PO SCH (05:27)
[2019-11-01 05:29] LABS: BASOPHILS % 0.2 % (0.0-1.0); EOSINOPHILS % 0.4 % (0.0-6.0); HEMATOCRIT 23.7 % (34.2-44.1); HEMOGLOBIN 7.1 g/dL (12.0-16.0); LYMPHOCYTES # (AUTO) 0.9 (1.0-3.2); LYMPHOCYTES % 11.6 % (18.0-39.1); MEAN CORPUSCULAR HEMOGLOBIN 29.3 pg (28-32); MEAN CORPUSCULAR VOLUME 97.9 fL (81-99); MONOCYTES # (AUTO) 0.7 (0.2-0.8); MONOCYTES % 8.2 % (4.4-11.3); NEUTROPHILS # (AUTO) 6.3 (2.1-6.9); NEUTROPHILS % 79.1 % (38.7-80.0); PLATELET COUNT 148 x10e3/uL (140-360); RED BLOOD COUNT 2.42 x10e6/uL (3.6-5.1); RED CELL DISTRIBUTION WIDTH 16.5 % (11.7-14.4)
[2019-11-01 07:07] LABS: ALBUMIN 1.8 g/dL (3.5-5.0); ALBUMIN/GLOBULIN RATIO 0.4 (0.8-2.0); ANION GAP 13.3 mmol/L (8-16); CALCIUM 7.4 mg/dL (8.4-10.2); CREATININE, SERUM 2.86 mg/dL (0.57-1.11); POTASSIUM 4.3 mmol/L (3.5-5.1)
--- NOTE | 2019-11-01 07:30 | NUR ---
Pt received in bed this am. Pt is lethargic but does wake with verbal stimuli. Pt is confused. Breaths are even and unlabored on 2L/NC. Bed in lowest position and bed alarm in place.
[2019-11-01] MEDS: ASPIRIN 81 MG CHEW TAB PO SCH (07:44)
[2019-11-01] MEDS: FERROUS SULFATE 325 MG TAB PO SCH ×2 (07:44→16:51)
[2019-11-01] MEDS: MEROPENEM 500MG/ NS 50ML 50 ML IV SCH (07:44)
[2019-11-01] MEDS: FAMOTIDINE 20 MG/2 ML VIAL IV SCH ×2 (07:44→16:51)
[2019-11-01] MEDS: FUROSEMIDE INJ 10 MG/ML 4 ML VIAL IV SCH ×2 (07:44→21:30)
[2019-11-01] MEDS: DOCUSATE SODIUM 100 MG CAP PO SCH ×2 (07:48→16:51)
[2019-11-01] MEDS: GABAPENTIN 300 MG CAP PO SCH ×2 (07:48→16:51)
[2019-11-01] MEDS: ASCORBIC ACID 500 MG TAB PO SCH ×2 (07:49→16:51)
[2019-11-01] MEDS ORDERED: SODIUM CHLORIDE 0.9% 250ML 250 ML ONE (08:55)
--- NOTE | 2019-11-01 09:28 | Progress Note ---
DATE: 11/01/2019 SUBJECTIVE: The patient is still not responding well. She is not having fevers. She continues to have leg edema and some ascites. PHYSICAL EXAMINATION: VITAL SIGNS: The blood pressure is 101/57, saturation is 95% on 2 L. HEENT: Shows no facial swelling or erythema. CARDIAC: Reveals regular rate and rhythm with normal S1, S2. There are no murmurs or rubs heard. LUNGS: Auscultation of lungs reveals decreased breath sounds at the bases. There is no wheezing. There is ascites present. EXTREMITIES: Shows chronic venous stasis. There is some chronic leg edema. The legs are wrapped with Anam bandages. LABORATORY DATA: White blood cell count is 8, and hemoglobin is 7.1. The platelet count is 148. BUN to creatinine ratio is 81 to 2.86. Carbon dioxide is 18. Albumin is 1.8. IMPRESSION: 1. Acute on chronic liver disease with ascites and hepatic encephalopathy. 2. Cirrhosis. 3. Acute on chronic renal failure. 4. History of chronic renal failure secondary to obstructive uropathy and ureteral obstruction. 5. Thrombocytopenia. 6. Anemia secondary to chronic blood loss. 7. Severe peripheral vascular disease with poorly healing wounds and possible osteomyelitis. PLAN: 1. When I last spoke to the patient at [facility] several months ago, she requested hospice. She did not want any heroic measures at that time. 2. The patient is too obtunded now to confirm her prior statements, but I have no reason to believe that her wishes have changed. 3. Continue current antibiotics and await culture results. 4. Continue to treat for hepatic encephalopathy and liver disease. 5. Monitor blood counts and transfuse as necessary. 6. Case discussed with the Dr. Knott, and Mary Ellis, the nursing staff. Dalton Dill MD LM/KENAN /[id number]
[2019-11-01] MEDS: BALSAM PERU/CASTOR OIL 60 GM OINT...G. TP SCH (10:00)
--- NOTE | 2019-11-01 11:40 | NUR ---
She now returns with worsening responsiveness. She has a low-grade fever to 100. She has no active bleeding. She has minimal cough. PAST SURGICAL HISTORY: 1. Status post urological interventions for bilateral ureteral obstruction. 2. Status post evacuation of a rectus hematoma. 3. History of eye surgery. 4. History of prior skin graft. PAST MEDICAL HISTORY: 1. Cirrhosis. 2. Chronic renal failure, stage 4. 3. Bilateral ureteral obstruction. 4. History of prior rectus hematoma, requiring surgical evacuation. 5. Thrombocytopenia. 6. Chronic leg edema. SOCIAL HISTORY: The patient was a prior smoker. She is a prior drinker. She stays at the [facility] facility. FAMILY HISTORY: Noncontributory. ALLERGIES: THE PATIENT IS ALLERGIC TO CEPHALOSPORINS. [id number]
--- NOTE | 2019-11-01 12:55 | Consultation ---
DATE OF CONSULTATION: 10/31/2019 HISTORY OF PRESENT ILLNESS: Ms. Leach was seen on October 30, but for some reason my consult was not done. The patient is a 54-year-old female, who has complicated medical history of liver cirrhosis, end-stage renal disease, ascites, multiple infections. She had chronic renal failure, bilateral ureteral obstruction, colonization, multidrug resistant, comes in with altered mental status. The patient has complicated medical history as mentioned above. The patient was seen and examined. Chart reviewed. The patient is noncommunicative. She is coming from a skilled nursing with altered mental status. Her laboratory data reviewed. The patient is known to have multidrug resistant pathogen. Her white count was 5.18, hemoglobin 7.5. Sodium 140, potassium 4.3. PAST MEDICAL HISTORY: As above. PAST SURGICAL HISTORY: As above. ALLERGIES: NKA. SOCIAL HISTORY: There is no smoking, drug abuse, or alcohol abuse. FAMILY HISTORY: Otherwise noncontributory. REVIEW OF SYSTEMS: Could not be obtained. The patient was recently in the hospital at [place], which had the infection. PHYSICAL EXAMINATION: GENERAL: She is alert, confused. VITAL SIGNS: Stable, currently afebrile. HEENT: She is not icteric. NECK: Supple. CHEST: Few crackles. COR: S1 and S2. No S3, S4, or murmur. ABDOMEN: Soft. LABORATORY DATA: Reviewed. Chart reviewed. MEDICATION LIST: Reviewed. IMPRESSION: Altered mental status, concerned about sepsis on admission. Agree with blood cultures and urine cultures. We will put her on IV antibiotic as ordered. Further recommendations to follow. Recheck CBC. Recheck Chem panel. Renal has been consulted. Critical Care was consulted. We will follow with you. MD TULIO Jesus/MODL /[id number]
--- NOTE | 2019-11-01 14:35 | Progress Note ---
DATE: 11/01/2019 Nephrology Progress Note SUBJECTIVE: The patient is being followed up for chronic kidney disease and hyperkalemia and fluid overload. She has been treated with aggressive IV loop diuretics. Intake and output strongly negative with 3 L urine output in the last 24 hours. OBJECTIVE: GENERAL: The patient is sleeping, but appears comfortable. RN reports no shortness of breath. Mental status is slightly better with some oral intake of food. VITAL SIGNS: Stable. Blood pressure 106/54, pulse 87 per minute, afebrile. Pulse oximetry 99% on 2 L nasal cannula oxygen. The rest of the examination is unchanged since yesterday. The patient was not touched due to pending COVID test. However, her legs do not show any significant edema. LABORATORY DATA: Creatinine stable at 2.8. BUN up to 81. Serum bicarb 19. Potassium 4.3, albumin 1.8. Intact PTH 56. White count 8.02, hemoglobin 7.1, and normal platelet count. IMPRESSION: 1. Fluid overload, improved with IV Lasix. We will decrease frequency to twice a day at the same dose. Continue to monitor intake and output. 2. Chronic kidney disease stage 4. Presumably secondary to obstructive uropathy. Status post stenting of the left collecting system, with mild residual hydro on the right side. Urology has seen patient. 3. Anemia secondary to chronic kidney disease. We will need erythropoietin stimulating agents in the long-term. 4. Hyperkalemia, resolved with aggressive diuretics. Diogenes Porras MD [facility]/MODL /[id number]
--- NOTE | 2019-11-01 16:13 | NUR ---
Nutrition Intervention Note RD Recommendation(s) for Physician: - Continue Renal diet - Recommend Nepro BID for adequacy - Consider renal MVI once daily for adequacy Plan of Care: RD following, monitoring for tolerance and adequacy Nutrition reason for involvement: Nutrition risk trigger RD Assessment 10/31: 54 YOF admitted for pneumonia currently being ruled out for COVID-19. Pt assessed today per MST screen. Pt obtunded with decreased responsiveness, unable to obtain hx at this time. Pt with poor intake since admit. No wt loss in the past 3 months per prior admit wt of 180# in July. Chart reviewed. Will continue to monitor. Principal Problems/Diagnoses: pneumonia, COVID PUI PMH: CKD 4, cirrhosis, bilateral ureteral obstruction, chronic leg edema GI: LBM 10/30, + ascites Skin: stasis ulcers to toes and R foot Labs: 10/31: Na 140, K 4.3, BUN 81, Cr 2.86, Gluc 86, 10/31: Phos 5.5, Ca 8.5 Meds: vitamin C, colace, abx, feosol, pepcid, lasix, synthroid, remeron, zofran Ht: 62 in Wt: 181.75 lb BMI: 33.2 kg/m2 IBW: 110 lb Malnutrition Evaluation 10/31 Unable to complete assessment 2/2 current isolation precautions and pt mentation. Nutrition Prescription (Diet Order): Renal Estimated Nutritional Needs: Calories: 5072-0463 (22-25kcal/kg/d) Weight used: IBW Protein: 75-100 (1.5-2g/kg/d) Weight used: IBW Diet Adequacy: Not meeting calorie needs, Not meeting protein needs Tolerance: pending Diet Education Needs Assessment: Diet education indicated, pt not appropriate 2/2 mentation. Nutrition Care Level: Moderate Nutrition Diagnosis: Inadequate energy intake related to current mentation as evidenced by current poor intake. Goal: Patient will meet 75-100% of estimated needs by follow up Progress: N/A Interventions: - Mineral modified diet, liquid supplement, vitamin/mineral supplementation, recommend modifications Monitoring/Evaluation: - Total energy intake, Total protein intake, Modified diet, Formula/Solution, Weight change Signed: Celia Fam RD, LD, [facility]
[2019-11-01] MEDS: ACETAMINOPHEN 325 MG TAB PO PRN (17:36)
[2019-11-01] MEDS ORDERED: SODIUM HYPOCHLORITE 0.25% 480 ML SOLN IR SCH (18:30)
--- NOTE | 2019-11-01 21:26 | Consultation ---
DATE OF CONSULTATION: 11/01/2019 Wound Consultation HISTORY OF PRESENT ILLNESS: A 54-year-old female patient, history of end-stage renal disease, liver cirrhosis, peripheral vascular disease, multiple chronic nonhealing ulcer to both lower extremities, was under hospice care once, has multiple hospitalization for encephalopathy, infection, obstructive uropathy. She is now admitted with altered mental status. Wound consult was called. PAST MEDICAL HISTORY: Refer to [facility]. PERSONAL HISTORY: History of smoking and alcohol. ALLERGIES: CEPHALEXIN. PHYSICAL EXAMINATION: VITAL SIGNS: Height 62 inches, weight 181.75 pounds. HEENT: The patient is lethargic, poorly arousable. LUNGS: Diminished at the bases. CVS: S1 and S2 normal. ABDOMEN: Soft. Slight ascites present. Suprapubic catheter in place, has some drainage from the site. EXTREMITIES: Lower extremities, bilateral leg ulcer noted multiple. Left toes are necrotic. The patient has severe PVD. ASSESSMENT: Multiple lower extremity ulceration and right sacrum ulcer, necrotic wound of the toes. PLAN: Apply Dakin's wet-to-dry to the leg, Keflex and tape. Thank you for consultation. MD PERFECTO Kingston/MODL /[id number]
[2019-11-01] MEDS: MIRTAZAPINE 15 MG TAB PO SCH (21:30)
[2019-11-02] VITALS (11 sets, daily range): BP systolic 92–114; BP diastolic 45–60
[2019-11-02 06:13] LABS: BASOPHILS % 0.5 % (0.0-1.0); EOSINOPHILS # (AUTO) 0.1 (0.0-0.4); EOSINOPHILS % 0.6 % (0.0-6.0); HEMATOCRIT 25.9 % (34.2-44.1); LYMPHOCYTES % 11.8 % (18.0-39.1); MEAN CORPUSCULAR HEMOGLOBIN 29.7 pg (28-32); MEAN CORPUSCULAR HGB CONC 30.9 g/dL (31-35); MEAN CORPUSCULAR VOLUME 96.3 fL (81-99); MONOCYTES # (AUTO) 0.7 (0.2-0.8); MONOCYTES % 8.5 % (4.4-11.3); NEUTROPHILS # (AUTO) 6.5 (2.1-6.9); NEUTROPHILS % 78.1 % (38.7-80.0); PLATELET COUNT 88 x10e3/uL (140-360); RED BLOOD COUNT 2.69 x10e6/uL (3.6-5.1); RED CELL DISTRIBUTION WIDTH 16.2 % (11.7-14.4)
[2019-11-02] MEDS: LEVOTHYROXINE SODIUM 75 MCG TAB PO SCH (06:30)
[2019-11-02 06:31] LABS: ANION GAP 13.8 mmol/L (8-16); CALCIUM 8.4 mg/dL (8.4-10.2); CREATININE, SERUM 3.1 mg/dL (0.57-1.11); POTASSIUM 3.8 mmol/L (3.5-5.1)
[2019-11-02 06:54] LABS: THYROID STIMULATING HORMONE 12.525 uIU/mL (0.350-4.940)
[2019-11-02 07:17] LABS: % IRON SATURATION 14 % (15-50); IRON 28 ug/dL (50-170); TOTAL IRON BINDING CAPACITY 195 ug/dL (261-478); TRANSFERRIN 139 mg/dL (180-382)
[2019-11-02] MEDS: FUROSEMIDE INJ 10 MG/ML 4 ML VIAL IV SCH ×2 (07:36→20:38)
[2019-11-02] MEDS: MEROPENEM 500MG/ NS 50ML 50 ML IV SCH (07:36)
[2019-11-02] MEDS: FERROUS SULFATE 325 MG TAB PO SCH ×2 (07:36→16:56)
[2019-11-02] MEDS: GABAPENTIN 300 MG CAP PO SCH ×2 (07:37→16:56)
[2019-11-02] MEDS: DOCUSATE SODIUM 100 MG CAP PO SCH ×2 (07:37→16:56)
[2019-11-02] MEDS: ASPIRIN 81 MG CHEW TAB PO SCH (07:37)
[2019-11-02] MEDS: FAMOTIDINE 20 MG/2 ML VIAL IV SCH ×2 (07:37→16:56)
[2019-11-02] MEDS: ASCORBIC ACID 500 MG TAB PO SCH ×2 (07:38→16:56)
[2019-11-02] MEDS: BALSAM PERU/CASTOR OIL 60 GM OINT...G. TP SCH (07:38)
--- NOTE | 2019-11-02 09:00 | NUR ---
Spoke with Dr. Black at 0830 to report negative covid results and received orders for pt to be moved to the floor. Also spoke to attending and received orders for pt to be move d to the floor.
--- NOTE | 2019-11-02 09:00 | NUR ---
Paged Dr. Black to report ESBL in urine result, waiting for call back.
--- NOTE | 2019-11-02 11:22 | NUR ---
PROGRESS NOTE [id number]
--- NOTE | 2019-11-02 12:19 | NUR ---
Dr. Black here to see pt. Orders received pt should be placed on contact isolation for ESBL of urine but can be transferred to another unit.
--- NOTE | 2019-11-02 12:33 | Progress Note ---
DATE: 11/02/2019 SUBJECTIVE: Ms. Leach is more alert today. There are no new complaints. REVIEW OF SYSTEMS: HEENT: Negative. PULMONARY: Negative. She is back to her baseline. PHYSICAL EXAMINATION: GENERAL: She is currently alert. VITAL SIGNS: Stable, afebrile. HEENT: She is not icteric. NECK: Supple. CHEST: Clear. HEART: S1, S2. No S3, S4, or murmur. ABDOMEN: Soft. Bowel sounds present. EXTREMITIES: No edema. SKIN: No rash. IMPRESSION: 1. Sepsis on admission secondary to UTI. 2. Multidrug resistant pathogen. 3. COVID-19 was negative. 4. History of liver cirrhosis. 5. Multiple lower extremities ulcer, sacral ulcer, multiple necrotic wound. 6. Malnutrition, debilitation. 7. Chronic kidney disease. 8. DNR. Continue meropenem for 14 days. Can leave COVID Unit, can discontinue droplet isolation, continue with contact isolation. Can also finish her treatment at skilled care facility with meropenem 500 daily for a total of 14 days. MD TULIO Jesus/KENAN /[id number]
--- NOTE | 2019-11-02 12:58 | Progress Note ---
DATE: 11/02/2019 SUBJECTIVE: The patient is more awake today. She is not complaining of pain. She does not have dyspnea or cough. PHYSICAL EXAMINATION: VITAL SIGNS: The patient is afebrile. The blood pressure is 96/51, saturation is 95% on 2 L. HEENT: Shows no facial swelling or erythema. CARDIAC: Reveals a regular rate and rhythm with normal S1, S2. LUNGS: Auscultation of lungs reveals decreased breath sounds at the bases. There is no wheezing. ABDOMEN: Soft. There is some ascites. There are 2 to 3+ leg edema with changes of chronic venous stasis. LABORATORY DATA: White blood cell count is 8.2 and hemoglobin is 8. The platelet count is 88. The BUN to creatinine ratio is 86-3.1. Total bilirubin is 1.5. TSH is 12.5. IMPRESSION: 1. Qelnb-jf-spkojnt liver disease with ascites and hepatic encephalopathy. 2. Cirrhosis. 3. Acute on chronic renal failure. 4. Thrombocytopenia. 5. Severe peripheral vascular disease. 6. Chronic venous stasis. 7. Thrombocytopenia. PLAN: 1. Transfer patient out of isolation. 2. Continue current antibiotics for extended spectrum beta-lactamase producing organism in the urine. 3. She continue current treatment for liver disease. 4. Monitor blood counts and renal function. Dalton Dill MD [facility]/MODL /[id number]
--- NOTE | 2019-11-02 13:26 | NUR ---
Pt transferred to room 212 with all personal belongings. Report given to Inga prior to transfer.
--- NOTE | 2019-11-02 13:36 | NUR ---
1330 Rec'd pt VIA BED TO ROOM 212, PT ALERT TO SELF, LOWER EXTREMITIES CONTRACTED, LEGS WRAPPED WITH JAYME BANDAGES, VS STABLE, PT ON 2L VIA NC, NO SIGN OF ACUTE DISTRESS NOTED, BEDSIDE REPORT AND CARE REC'D FROM SHAHNAZ REGALADO
--- NOTE | 2019-11-02 14:58 | Progress Note ---
DATE: 11/02/2019 Nephrology Progress Note SUBJECTIVE: The patient is awake, not sure of her orientation, seems to answer in monosyllables. OBJECTIVE: VITAL SIGNS: Stable. Blood pressure 96/51, pulse 66 per minute, afebrile. O2 saturation 95%. COVID-19 test negative. NECK: Supple without jugular venous distention. RESPIRATORY: Symmetrical breathing. I do not hear any wheezing. CARDIOVASCULAR: Regular rate and rhythm. ABDOMEN: Soft, nondistended. EXTREMITIES: Without pitting edema or cyanosis. NEUROLOGICAL: Alert but likely not oriented. LABORATORY DATA: Hemoglobin 8, white count normal, platelets 88,000. Serum chemistries show creatinine slightly higher at 3.1, BUN 86, bicarb 22, potassium 3.8, calcium 8.4, albumin 1.8. Intact PTH 56. TSH 15. Urine culture, Klebsiella pneumoniae, ESBL, multi drug resistant. ASSESSMENT: 1. Chronic kidney disease, stage IV. Overall, renal functions have been stable with mild fluctuation, likely related to diuresis. 2. Anemia, secondary to chronic kidney disease. Stable hemoglobin. Transferrin saturation is low. 3. Has had multidrug resistant urinary tract infection, on IV meropenem per Infectious Disease. 4. Fluid overload, responded well to IV Lasix 40 mg b.i.d. May switch tomorrow to oral. RECOMMENDATIONS: 1. May switch diuretics to p.o. tomorrow if able to take it. Agree with oral iron replacement. 2. Continue to treat UTI. 3. Her phosphorus level is only mildly elevated. We will not start any phosphate binders at this time. 4. In the senior care, she will require some kind of erythropoietin stimulating agent. 5. Continue to monitor daily renal function. Diogenes Porras MD [facility]/MODL /[id number]
--- NOTE | 2019-11-02 15:00 | NUR ---
1500 DR IN AT ASSESSING WOUNDS AND DRESSING CHANGE
[2019-11-02] MEDS ORDERED: MERREM500 MG IV (16:59)
[2019-11-02] MEDS ORDERED: FAMOTIDINE20 MG/2 ML IV (16:59)
[2019-11-02] MEDS ORDERED: ASCORBIC ACID500 MG PO (16:59)
[2019-11-02] MEDS ORDERED: DAKIN'S480 ML IR (16:59)
[2019-11-02] MEDS ORDERED: COLACE100 MG PO (16:59)
[2019-11-02] MEDS ORDERED: VENELEX OINTMEN60 GM TP (16:59)
--- NOTE | 2019-11-02 19:51 | NUR ---
PER DAYSJESSICAFT RN, PATIENT DISCHARGE IS CANCELLED UNTIL TOMOROW, AFTER CASE MANAGEMENT SET UP RETURN PAPERWORK TO HER HOME FACILITY , DISCHARGE ORDER CANCELLED
[2019-11-02] MEDS: SODIUM CHLORIDE FLUSH 10 ML SYR INJ PRN (20:32)
[2019-11-02] MEDS: MIRTAZAPINE 15 MG TAB PO SCH (20:38)
--- NOTE | 2019-11-02 21:24 | Discharge Summary ---
PERTINENT HISTORY AND PHYSICAL FINDINGS/CHIEF COMPLAINT: Altered mental status and bilateral lower extremity wounds. HISTORY OF PRESENT ILLNESS: Ms. Leach is a 54-year-old female with extensive history of admissions from the [facility] due to altered mental status and bilateral lower extremity wounds. She was previously on hospice and refused angiogram for arterial disease of bilateral lower extremities. She has poor prognosis due to chronic kidney disease stage 4, hepatitis C, and cirrhosis. PAST MEDICAL HISTORY: Includes hepatitis C, depression, COPD, hypothyroidism, chronic kidney disease stage 4, liver cirrhosis, anxiety, claustrophobia, urinary incontinence. PAST SURGICAL HISTORY: Sacral skin graft. FAMILY HISTORY: Diabetes mellitus in brother and father. Cancer in the mother. SOCIAL HISTORY: Noncontributory. ALLERGIES: CEPHALEXIN. ADMITTING DIAGNOSES: 1. Urinary tract infection, present on arrival. 2. Chronic kidney disease, stage 4. 3. Anxiety/depression. 4. Hypothyroidism. 5. Chronic obstructive pulmonary disease. 6. Transaminitis with history of hepatitis C. 7. Chronic bilateral lower extremity cellulitis/arterial ulcers. 8. Acute metabolic encephalopathy, secondary to urinary tract infection. 9. Hepatitis C cirrhosis with hepatic encephalopathy. The patient's urinary tract infection turned out to be ESBL producing Klebsiella pneumoniae, multidrug-resistant organism, which was present on arrival. CONSULTING PHYSICIANS: Included: 1. Dr. Black with Infectious Disease. 2. Dr. Dalton Dill with Pulmonology and Critical Care Medicine. 3. Dr. Kirby Hammond with Nephrology. 4. Dr. Herman with Wound Care MD. PHYSICAL EXAMINATION: VITAL SIGNS: Today, the patient's vital signs are stable. Temperature 98.6, T-max 98.8, heart rate 82, respirations 18, blood pressure 101/54, and pulse oximetry 97% on 2 L of oxygen via nasal cannula. Intake and output are 100 mL and 1975 mL. GENERAL: The patient is supine, awake, lethargic. LUNGS: Generally clear to auscultation. Diminished bases. HEENT: Extraocular movements are intact. NECK: Supple. CARDIOVASCULAR: Regular rate and rhythm. No murmur. She is on oxygen at 2 L via nasal cannula. ABDOMEN: Bowel sounds positive. Soft, nontender. She has a Gibson catheter with avtar urine. EXTREMITIES: No pitting edema. No clubbing. No signs or symptoms of DVT. She does have a Kerlix, wrapped her from both lower extremities. NEUROLOGIC: Awake, more alert than yesterday, but remains lethargic. She did have sepsis on admission, secondary to the urinary tract infection. She has multiple lower extremity ulcers, sacral ulcer, multiple necrotic wounds shows malnutrition, debilitation, and remains DNR with poor prognosis. She has jkjrb-na-fyzwcon liver disease with ascites and hepatic encephalopathy, thrombocytopenia, severe peripheral vascular disease, chronic venous stasis. On October 29, coronavirus test was performed and it was negative. Influenza types A and B were negative. On October 29, WBC 5.18, hemoglobin 7.5, hematocrit 24.3, and platelets 84. PT 15, INR 1.11, PTT 53.6. Sodium 135, potassium 6.5, chloride 108, CO2 of 20, BUN 73, creatinine 2.59, GFR 19, glucose 85, calcium 8, total bilirubin 1.4. AST 63, ALT 31, alkaline phosphatase 748. Creatine kinase 51, CK-MB 6.5. Troponin I less than 0.001. B-type natriuretic peptide 2419. Total protein 6.2, and albumin 2.1. Urinalysis was positive. No growth from blood cultures after 48 hours, which were collected on October 29. Chest x-ray showed mild cardiomegaly and pulmonary vascular congestion, hyperinflated lungs consistent with pulmonary emphysema. A renal ultrasound on October 30 showed mild right hydronephrosis, left nephrolithiasis without hydronephrosis. During her stay, the patient continued to receive wound care. She has been on Dakin solution. She received some IV iron. We will continue oral iron. Today on the day of discharge, sodium 143, potassium 3.8, chloride 111, CO2 of 22, BUN 86, creatinine 3.1, estimated GFR 16. WBCs 8.28, hemoglobin 8.0, hematocrit 25.9, platelets 88. Total bilirubin 1.5, AST 39, ALT 24, alkaline phosphatase 650. Iron 28, TIBC 195, percent saturation 14, transferrin 139, TSH 12.525. Apparently, she has multiple new blisters, deep tissue injuries, which Dr. Herman will follow. The patient also to follow up with Dr. Black and Dr. Hammond. The patient to follow up with her primary care physician, Dr. Adela Del Real, at the [facility]. Continue renal diet. Activity level as tolerated. Case was discussed with Dr. Dill. Dictated by Terrence Archibald, SPECIAL PROCEDURES NURSE MD RK Berkowitz/MEAGANL /[id number]
[2019-11-03] VITALS (10 sets, daily range): BP systolic 89–168; BP diastolic 47–68
--- NOTE | 2019-11-03 02:08 | NUR ---
HOURLY ROUNDING PATIENT AWAKE ALERT, RESPONSIVE TO HER NAME ONLY, EYES OPEN SPONTANEOUSLY AND TO PAIN, PATIENT REPOSITIONED q2t, ON RIGHT SIDE, PT CONTINUES TO TRY TO REPOSITION HER LEFT BACK ON LEFT SIDE, PILLOWS USED TO MAINTAIN POSITION, SUPRAPUBIC CARE GIVEN, AREA CLEANSED, CLEAN T-DRAIN SPONGE PLACED, URINAL BAG CONTAINING ENRIKE COLORED URINE WITH SEDIMENTATION EMPTIED, PATIENT OFFERED ORAL HYDRATION, AND ORAL CARE, KEPT REFUSING BY TURNING HER HEAD AWAY, BED LINEN CHANGED, CALL LIGHT WITHIN REACH
[2019-11-03] MEDS: LEVOTHYROXINE SODIUM 75 MCG TAB PO SCH (05:44)
[2019-11-03] MEDS: DOCUSATE SODIUM 100 MG CAP PO SCH ×2 (08:08→16:42)
[2019-11-03] MEDS: FERROUS SULFATE 325 MG TAB PO SCH ×2 (08:08→16:42)
[2019-11-03] MEDS: GABAPENTIN 300 MG CAP PO SCH ×2 (08:08→16:42)
[2019-11-03] MEDS: ASPIRIN 81 MG CHEW TAB PO SCH (08:08)
[2019-11-03] MEDS: FUROSEMIDE INJ 10 MG/ML 4 ML VIAL IV SCH (08:08)
[2019-11-03] MEDS: FAMOTIDINE 20 MG/2 ML VIAL IV SCH ×2 (08:08→16:42)
[2019-11-03] MEDS: MEROPENEM 500MG/ NS 50ML 50 ML IV SCH (08:08)
[2019-11-03] MEDS: ASCORBIC ACID 500 MG TAB PO SCH ×2 (08:08→16:42)
[2019-11-03] MEDS ORDERED: SODIUM CHLORIDE 0.9% 50ML 50 ML ONE (08:16)
[2019-11-03] MEDS: ACETAMINOPHEN 325 MG TAB PO PRN ×2 (08:21→14:16)
--- NOTE | 2019-11-03 08:33 | NUR ---
FAXED CLINICALS TO [facility] FOR PT TO RETURN TO FACILITY. COMPLETED RTF AND PUT WITH PACKET TO BE AVAILABLE FOR TRANSFER.
[2019-11-03 09:22] LABS: BASOPHILS % 0.5 % (0.0-1.0); EOSINOPHILS # (AUTO) 0.1 (0.0-0.4); EOSINOPHILS % 1.5 % (0.0-6.0); HEMATOCRIT 26.2 % (34.2-44.1); LYMPHOCYTES % 17.7 % (18.0-39.1); MEAN CORPUSCULAR HEMOGLOBIN 29.4 pg (28-32); MEAN CORPUSCULAR HGB CONC 30.5 g/dL (31-35); MEAN CORPUSCULAR VOLUME 96.3 fL (81-99); MONOCYTES # (AUTO) 0.5 (0.2-0.8); MONOCYTES % 9.1 % (4.4-11.3); NEUTROPHILS # (AUTO) 3.9 (2.1-6.9); NEUTROPHILS % 70.8 % (38.7-80.0); PLATELET COUNT 75 x10e3/uL (140-360); RED BLOOD COUNT 2.72 x10e6/uL (3.6-5.1); RED CELL DISTRIBUTION WIDTH 16.1 % (11.7-14.4)
[2019-11-03 09:36] LABS: ALBUMIN/GLOBULIN RATIO 0.4 (0.8-2.0); ANION GAP 14.7 mmol/L (8-16); CALCIUM 8.4 mg/dL (8.4-10.2); CREATININE, SERUM 3.09 mg/dL (0.57-1.11); POTASSIUM 3.7 mmol/L (3.5-5.1)
--- NOTE | 2019-11-03 09:51 | Progress Note ---
DATE: 11/03/2019 SUBJECTIVE: A pleasant lady, , just ran out of ICU after COVID testing was negative. Currently, up on the 2nd floor. Her main complaint is pain, which I discussed with the nurse. She is about to get her pain medication. Otherwise, no specific complaints. No nausea, vomiting, fever, chills, chest pain, shortness of breath and headache. No rash or dysuria. OBJECTIVE: VITAL SIGNS: Temperature is 97.6, pulse is 81, respiration 18, and blood pressure 105/54. GENERAL: Alert and oriented, sitting on the edge of the bed. CV: S1-S2. CHEST: Equal expansion. Clear to auscultation. ABDOMEN: Soft and nontender. No distention. Bowel sounds positive. HEENT: Moist. No pallor. No JVD. EXTREMITIES: With edema bilateral lower extremities, which are not new. Also, patient has multiple wounds of the lower extremity, seem to be venous congestion, related ulcers with some necrotic tissue. Again, these are not new. MEDICATIONS: Medication list reviewed. As far as Infectious Disease point of view, the patient is on meropenem. LABORATORY STUDIES: White blood cells 8.28, hemoglobin 8, platelets 88. The patient with chronic thrombocytopenia. Sodium 143, potassium 3.8, creatinine 3.1 with chronic renal insufficiency. SEROLOGY: COVID-19 PCR not detected on 10/30/2019. Influenza A and B antigen is negative. MICROBIOLOGY: Blood cultures negative 10/30/2019 with the urine culture 10/30/2019 showing ESBL Klebsiella. RADIOLOGY STUDIES: No new radiology studies available. ASSESSMENT AND PLAN: This is a 54-year-old female admitted with: 1. Sepsis secondary to urinary tract infection. 2. The patient had multiple hospitalizations with MDR pathogen. 3. Multiple wounds of the lower extremities. 4. Multiple necrotic wounds. 5. Venous insufficiency, lower extremities. 6. Chronic kidney disease. 7. Chronic thrombocytopenia. 8. Severe debility-multifactorial. 9. History of hepatic cirrhosis. 10. Chronic pain. 11. Hypothyroidism. 12. Continue with Merrem for total of 14 days. 13. Continue with wound care. 14. Continue with PT/OT. 15. Continue pain management. 16. Anemia per others, monitor for bleed, continue to monitor patient clinically follow up with the labs. Discussed with Dr. Black in details. Please refer to chart for more information. Dictated by Jules Miner PA-C (Al) MD MENDEL Jesus/KENAN /[id number]
--- NOTE | 2019-11-03 10:43 | NUR ---
LONGTERM FACILITY DISCHARGE INFORMATION PATIENT HAS BEEN ACCEPTED TO: NAME: [facility] ADDRESS: [id number] ACCEPTING UX DESIGNER: SHERRY DANIELSON MD: MARY ROOM:102 NURSE CALL REPORT TO: [phone] IMM SIGNED AND OBTAINED (if applicable): YES THE FOLLOWING DOCUMENTS MUST ACCOMPANY PATIENT FOR TRANSFER: COPIED CHART:YES
[2019-11-03] MEDS ORDERED: LACTULOSE SYRUP 20 GM/30 ML UDC PO PRN (11:00)
[2019-11-03] MEDS ORDERED: FLUCONAZOLE 100 MG TAB PO SCH ×2 (12:00→12:30)
[2019-11-03] MEDS: BALSAM PERU/CASTOR OIL 60 GM OINT...G. TP SCH (12:09)
[2019-11-03] MEDS ORDERED: LEVOTHYROXINE50 MCG PO (13:18)
[2019-11-03] MEDS ORDERED: ONDANSETRON HCL 4 MG ORAL DISINTEGRATING TAB PO PRN (13:45)
--- NOTE | 2019-11-03 13:47 | Progress Note ---
DATE: 11/03/2019 SUBJECTIVE: The patient is less confused. She is not having fevers. PHYSICAL EXAMINATION: VITAL SIGNS: The blood pressure is 94/51, saturation is 96%. The pulse is 81. HEENT: No facial swelling or erythema. CARDIAC: Regular rate and rhythm with a normal S1, S2. LUNGS: Auscultation of lungs reveals decreased breath sounds at the bases. ABDOMEN: Soft. There is some ascites. EXTREMITIES: 2 to 3+ chronic leg edema. LABORATORY DATA: White blood cell count is 5.5 and hemoglobin is 8. The platelet count is 75. The creatinine is 3.9. The other electrolytes are within normal limits. Total bilirubin is 1.3. IMPRESSION: 1. Cirrhosis, chronic liver failure. 2. Chronic renal failure, stage 4. 3. Hepatic encephalopathy. 4. Severe peripheral vascular disease. 5. Chronic leg edema. PLAN: 1. The patient will complete her antibiotics. 2. Monitor blood counts. 3. Continue to monitor liver function and treat cirrhosis. Dalton Dill MD [facility]/MODL /[id number]
--- NOTE | 2019-11-03 13:47 | Progress Note ---
DATE: 11/03/2019 Nephrology Followup Progress Note SUBJECTIVE: The patient is resting comfortably. RN reports no new issues. Specifically, she has not been short of breath or nauseated. OBJECTIVE: VITAL SIGNS: Stable. Intake and output shows that she did make 1220 mL of urine in the last 24 hours as opposed to an intake of 480 mL on IV Lasix. Blood pressure 105/54. Room air oxygen saturation 100%. NECK: Without JVP. RESPIRATIONS: Symmetric breathing, in no distress. CARDIOVASCULAR: Regular rate and rhythm. ABDOMEN: Nondistended. EXTREMITIES: Without pitting edema. LABORATORY DATA: Labs reviewed from today. Hemoglobin stable at 8 g. She has received some IV iron and is now on p.o. iron. Serum creatinine 3.09, BUN 81, electrolytes stable. IMPRESSION: 1. Chronic kidney disease, stage IV. Overall, stable. 2. Urinary tract infection, continuing antibiotics per Infectious Disease for multidrug resistant Klebsiella pneumoniae. 3. Blood pressure, it has been stable without BP medications. 4. Anemia secondary to chronic kidney disease. Transferrin saturation was low. Continue on p.o. iron. 5. Fluid overload, resolved with aggressive IV diuretics. May switch to oral and maintain as needed in group home. 6. The patient is expected to be transferred back to the group home today. Given her chronic kidney disease 4, anemia, etc. She should be followed up in our office in the next two weeks or so with results of BMP. Diogenes Porras MD [facility]/MODL /[id number]
[2019-11-03] MEDS ORDERED: LEVOTHYROXINE SODIUM 25 MCG TABLET PO ONE (15:30)
--- NOTE | 2019-11-03 16:10 | NUR ---
Report was given to Liz at [facility] at 1550 at 11/03/19. Patient has an IV 18g in right wrist that she is going to the facility with. Patient was given one extra dose of Levothyroxine per Terrence Archibald request. Patient had no issues or complaints. Addendum: 11/03/19 at 1711 by Danica Garrett RN Patient left with EMS at 1711.
--- NOTE | 2019-11-03 16:18 | NUR ---
WAS CALLED BY FACILITY AND TOLD WHEN NURSE CALLED REPORT THEY REMOVED HER LINE, CALLED NURSES STATION AND LET KNOW THEY HAVE TO PUT BACK IN BECAUSE SHE IS GOING TO THE FACILITY TO GET IV MEDICATIONS. TRANSPORT CAN CONTINUE WHEN LINE BACK IN, SHOULD HAPPEN TODAY BEFORE END OF DAY SHIFT.
--- NOTE | 2019-11-03 16:52 | NUR ---
Patient's wound care was done per doctors orders. Patient tolerated well. No issues or complaints. Will continue to monitor.
[2019-11-03] MEDS ORDERED: RIFAXIMIN 550 MG TABLET PO SCH (17:00)
--- NOTE | 2019-11-03 20:24 | Discharge Summary ---
ADDENDUM: The patient did stay overnight as Case Management had not yet faxed clinicals to the receiving facility. The patient does not have a bed at the [facility]. Nataliya nurse practitioner with Dr. Knott will be send a text regarding an update. The patient was seen by Dr. Herman and Dr. Knott this morning. Dr. Knott and I reviewed her wounds especially on the feet and legs. Wound care orders include cleaning the open wounds with Betadine solution and rinsing with sterile normal saline and then applying a wet-to-dry dressing of half strength Dakin's solution due to her TSH being 12.525 . Her levothyroxine will be increased from 75 mcg daily to 100 mcg daily. She is no longer on nasal cannula and oxygen saturation is within normal limits. She is more awake, more alert today as compared to yesterday. She did have some hypotension last night 89/47, but this morning her vital signs included temperature 98.5, heart rate 81, blood pressure 102/50, respirations 17, oxygen saturation 96%. She has several new deep tissue injuries, which were discussed with Dr. Barry and multiple chronic wounds. She will need continued followup for her wound care. We will speak with JOE An further regarding this as she will either need wound care at the facility or will need to follow up with Dr. Herman on an outpatient basis. The right dorsum of the foot, new blisters to the feet, right gluteal deep tissue injury and left sole of the foot are currently closed if not opened up, but it is our belief that the patient will be returning back to the hospital at some point due to her multiple chronic conditions. Her poor prognosis and the fact that in all probability her wounds will not improve, she may need bilateral pojam-crk-wgrm amputations at some point. At any time, she needs a surgical procedure, it requires two physicians as there was no one to obtain consent from. Dictated by Terrence Archibald NP Gray Knott MD [facility]/MODL /[id number]
--- NOTE | 2019-11-06 12:07 | Progress Note ---
DATE: 10/31/2019 HISTORY OF PRESENT ILLNESS: Ms. Moore is well known to me from before. The patient who is a 54-year-old white female with complicated prolonged history. The patient had liver cirrhosis, end-stage liver disease, ascites, hepatic encephalopathy, chronic kidney disease, bilateral ureteral obstruction status post stent, multiple infections before, cellulitis in the leg, abscess in the leg. She is coming with altered mental status, came to the emergency room because we are in the made of COVID-19, it was ordered. The patient who is confused does not really provide any meaningful information. LABORATORY DATA: When she first came white count 5.18, hemoglobin of 7.4. Her influenza A and B are negative. Her sodium 138, potassium 5.4, creatinine 2.6. Her blood cultures, urine cultures are negative. Her chest x-ray showed cardiomegaly, hyperinflated lungs consistent with emphysema. REVIEW OF SYSTEMS: Could not be obtained. PHYSICAL EXAMINATION: VITAL SIGNS: The patient who is lethargic when she first came she had temperature 100. HEENT: Normocephalic. NECK: Supple. CHEST: Clear anteriorly. COR: S1, S2. No S3, S4, or murmur. ABDOMEN: Soft. IMPRESSION: Altered mental status. Rule out infection. Rule out aspiration pneumonia. We will put her on cefepime. She received vancomycin. She received Zosyn. She received meropenem. The patient is known to have history of multidrug resistant. We will put her on meropenem 500 daily. She had her COVID-19, it came back negative and discontinue droplet isolations. Continue supportive care. Other medical problems as above. MD TULIO Jesus/KENAN /[id number]
--- NOTE | 2019-11-06 12:27 | Progress Note ---
DATE: 11/01/2019 SUBJECTIVE: Ms. Stanford was seen today. She seems to be more alert. REVIEW OF SYSTEMS: HEENT: Negative. PULMONARY: Negative. She is more alert. The medical team tells me she is stable. The patient on day 2 of meropenem. PHYSICAL EXAMINATION: GENERAL: She is alert, noncommunicative. VITAL SIGNS: Stable. Afebrile. HEENT: She is not icteric. NECK: Supple. CHEST: Clear. HEART: S1 and S2. ABDOMEN: Soft. IMPRESSION: 1. Sepsis on admission, probably UTI pyelonephritis. Continue with meropenem. I doubt the patient has COVID-19, however, it was ordered if negative can go to regular floor and discontinue isolation. Continue with meropenem. Her urine is showing gram-negative rods. Continue meropenem at renal dose. 2. End-stage renal disease. 3. Altered mental status. 4. History of liver cirrhosis. 5. Anemia of chronic disease. We will follow. MD TULIO Jesus/KENAN /[id number]
== END 2019-11-03 17:13 | DRG 871 ==
LOC: ER 19:32 → ERHOLD 23:29 → IMCU 10-31 01:39 → MED/SURG2 11-02 13:21
PROVIDERS: ADMIT Internal Medicine; ATTEND Internal Medicine
DX: A41.9 Sepsis, unspecified organism (principal); G93.41 Metabolic encephalopathy; I50.43 Acute on chronic combined systolic (congestive) and diastolic (congestive) heart failure; N30.01 Acute cystitis with hematuria; L03.116 Cellulitis of left lower limb; N18.4 Chronic kidney disease, stage 4 (severe); L03.115 Cellulitis of right lower limb; L97.929 Non-pressure chronic ulcer of unspecified part of left lower leg with unspecified severity; L97.919 Non-pressure chronic ulcer of unspecified part of right lower leg with unspecified severity; N17.9 Acute kidney failure, unspecified; R18.8 Other ascites; E87.2 Acidosis; N13.2 Hydronephrosis with renal and ureteral calculous obstruction; E46 Unspecified protein-calorie malnutrition; Z16.12 Extended spectrum beta lactamase (ESBL) resistance; Z16.24 Resistance to multiple antibiotics; I13.0 Hypertensive heart and chronic kidney disease with heart failure and stage 1 through stage 4 chronic kidney disease, or unspecified chronic kidney disease; R65.20 Severe sepsis without septic shock; E87.5 Hyperkalemia; E03.9 Hypothyroidism, unspecified; G20 Parkinson's disease; G62.9 Polyneuropathy, unspecified; D50.9 Iron deficiency anemia, unspecified; R32 Unspecified urinary incontinence; F41.9 Anxiety disorder, unspecified; I73.9 Peripheral vascular disease, unspecified; J44.9 Chronic obstructive pulmonary disease, unspecified; R74.0 Nonspecific elevation of levels of transaminase and lactic acid dehydrogenase [LDH]; Z83.3 Family history of diabetes mellitus; Z88.8 Allergy status to other drugs, medicaments and biological substances; Z80.9 Family history of malignant neoplasm, unspecified; Z87.442 Personal history of urinary calculi; Z87.898 Personal history of other specified conditions; Z86.19 Personal history of other infectious and parasitic diseases; K74.60 Unspecified cirrhosis of liver; D69.6 Thrombocytopenia, unspecified; K72.90 Hepatic failure, unspecified without coma; D50.0 Iron deficiency anemia secondary to blood loss (chronic); N13.9 Obstructive and reflux uropathy, unspecified; E88.09 Other disorders of plasma-protein metabolism, not elsewhere classified; L98.429 Non-pressure chronic ulcer of back with unspecified severity; L89.326 Pressure-induced deep tissue damage of left buttock; R23.8 Other skin changes; Z66 Do not resuscitate; B96.1 Klebsiella pneumoniae [K. pneumoniae] as the cause of diseases classified elsewhere; N18.9 Chronic kidney disease, unspecified
CPT/HCPCS: 36415; 71045; 76770; 80048; 80053; 81001; 82140; 82306; 82550; 82553; 83540; 83605; 83880; 83970; 84100; 84132; 84443; 84466; 84484; 85025; 85610; 85730; 87040; 87086; 87186; 87400; 87635; 93005; 99251; 99285; J0360; J1817; J1940; J2405; J2543; J3370; J7030; J7050; J7799

== ENCOUNTER 2019-11-15 08:49 | Inpatient (IN) | payer MEDICARE, OTHER ==
[~2019-11-15] VITALS: Ht 157.5 cm; Wt 64.4 kg
[~2019-11-15 08:49] MED LIST changes: +ACETAMINOPHEN325 M1 PO; +ACETIC ACID15 ML TP; +COLACE100 MG PO; +DAKIN'S480 ML IR; +FAMOTIDINE20 MG/2 ML IV; +GABAPENTIN300 MG PO; +LEVAQUIN500 MG PO; +MERREM500 MG IV; +NEOMYCIN SULFA500 MG PEG; +POTASSIUM CHLO20 ME1 PO; +REMERON15 MG PO; +TRAZODONE HCL50 MG PO; +TYLENOL WITH C1 EAC1 PO; +VENELEX OINTMEN60 GM TP
[2019-11-15] MEDS ORDERED: PANTOPRAZOLE 40 MG 10ML VIAL IV STA (09:12)
[2019-11-15] MEDS ORDERED: METHYLPREDNISOLONE SOD SUCC 125 MG/2ML VIAL IV STA (09:12)
[2019-11-15] MEDS ORDERED: FAMOTIDINE 20 MG/2 ML VIAL IV STA (09:12)
[2019-11-15] MEDS ORDERED: DIPHENHYDRAMINE HCL INJ 50 MG/ML VIAL IV ONE (09:15)
[2019-11-15 09:29] LABS: BASOPHILS % 0.3 % (0.0-1.0); EOSINOPHILS # (AUTO) 0.1 (0.0-0.4); EOSINOPHILS % 1.8 % (0.0-6.0); HEMATOCRIT 27.5 % (34.2-44.1); HEMOGLOBIN 8.4 g/dL (12.0-16.0); LYMPHOCYTES # (AUTO) 1.2 (1.0-3.2); LYMPHOCYTES % 16.6 % (18.0-39.1); MEAN CORPUSCULAR HEMOGLOBIN 29.2 pg (28-32); MEAN CORPUSCULAR HGB CONC 30.5 g/dL (31-35); MEAN CORPUSCULAR VOLUME 95.5 fL (81-99); MONOCYTES # (AUTO) 0.6 (0.2-0.8); MONOCYTES % 8.4 % (4.4-11.3); NEUTROPHILS # (AUTO) 5.2 (2.1-6.9); NEUTROPHILS % 72.5 % (38.7-80.0); PLATELET COUNT 108 x10e3/uL (140-360); RED BLOOD COUNT 2.88 x10e6/uL (3.6-5.1); RED CELL DISTRIBUTION WIDTH 15.8 % (11.7-14.4)
[2019-11-15] MEDS ORDERED: SODIUM CHLORIDE 0.9% 500ML 500 ML IV ONE (09:30)
[2019-11-15 09:48] LABS: INR 0.97; PROTHROMBIN TIME 13.5 seconds (11.9-14.5)
[2019-11-15 09:49] LABS: PARTIAL THROMBOPLASTIN TIME 26.9 seconds (23.8-35.5)
[2019-11-15 09:55] LABS: ALANINE AMINOTRANSFERASE 28 IU/L (0-55); ALBUMIN 2.1 g/dL (3.5-5.0); ALBUMIN/GLOBULIN RATIO 0.4 (0.8-2.0); ALKALINE PHOSPHATASE 701 IU/L (40-150); ANION GAP 15.6 mmol/L (8-16); BLOOD UREA NITROGEN 73 mg/dL (7-26); BUN/CREATININE RATIO 27 (6-25); CALCIUM 8.5 mg/dL (8.4-10.2); CARBON DIOXIDE 19 mmol/L (22-29); CHLORIDE 112 mmol/L (98-107); CREATINE KINASE 40 IU/L (29-168); EST GLOMERULAR FILTRATION RATE 18 ML/MIN (60-); GLUCOSE 94 mg/dL (74-118); MAGNESIUM 2.2 MG/DL (1.3-2.1); POTASSIUM 4.6 mmol/L (3.5-5.1); SODIUM 142 mmol/L (136-145)
[2019-11-15 10:02] LABS: CLARITY,URINE CLOUDY (CLEAR); COLOR,URINE YELLOW (YELLOW); LEUKOCYTE ESTERASE ,URINE LARGE (NEGATIVE); NITRITE,URINE NEGATIVE (NEGATIVE)
[2019-11-15 10:03] LABS: BILIRUBIN,URINE NEGATIVE (NEGATIVE); KETONES,URINE NEGATIVE (NEGATIVE); PROTEIN,URINE DIPSTICK 1+ (NEGATIVE); URINE UROBILINOGEN 0.2 mg/dL (0.2 - 1)
[2019-11-15 10:08] LABS: B-TYPE NATRIURETIC PEPTIDE2 1325.4 pg/mL (0-100)
[2019-11-15 10:17] LABS: BACTERIA,URINE MANY /HPF; EPITHELIAL CELLS,URINE FEW /LPF; RBC,URINE >50 /HPF (0-5); WBC,URINE (MAN) >50 /HPF (0-5)
--- NOTE | 2019-11-15 11:01 | Diagnostic Imaging Report ---
Examination: Single AP view of the chest. COMPARISON: 10/30/2019 INDICATION: Altered mental status DISCUSSION: Examination is limited by patient positioning. As before, the lungs appear hyperinflated. Stable enlargement of the cardiac silhouette with prominence of the central pulmonary vasculature. No acute osseous abnormality. IMPRESSION: Unchanged cardiomegaly and pulmonary venous congestion. Trace bilateral pleural effusions are suspected. Signed by: Dr. Alvarado Casas M.D. on 11/15/2019 10:58 AM
--- NOTE | 2019-11-15 11:46 | Diagnostic Imaging Report ---
EXAMINATION: Head CT HISTORY: Alteration of consciousness COMPARISON: Head CT 05/25/2019 TECHNIQUE: Helical axial images of the head were obtained. Reformatted coronal and sagittal images from the axial data. Dose modulation, iterative reconstruction, and/or weight based adjustment of the mA/kV was utilized to reduce the radiation dose to as low as reasonably achievable. Image quality: Study performed in lateral acute reduced due to patient's clinical condition and skin wounds. Motion/streaking artifact also limits the evaluation of the study. FINDINGS: Parenchyma: 1. No discrete areas of abnormal densities. 2. No mass or hemorrhage. No CT evidence of acute territorial vascular insult. Extra-axial spaces:No abnormal density. No extra-axial fluid collections Brain volume: Normal for age. Ventricles: No hydrocephalus or displacement. Arteries: No density suggestive of thrombus. Dural sinuses: No abnormal density. Foramen magnum: No mass, Chiari malformation, or basilar invagination. Sella: No obvious mass. Paranasal/mastoid sinuses: Imaged portions unremarkable. Skull/Scalp: No lytic or blastic lesions. No fractures. IMPRESSION: Suboptimal study due to motion artifact, grossly no acute intracranial hemorrhage, mass, hydrocephalus or midline shift. No significantly changed compared to head CT of 05/25/2019 Signed by: Dr. Renee Rousseau M.D. on 11/15/2019 11:43 AM
[2019-11-15] MEDS ORDERED: ONDANSETRON HCL INJ 2MG/ML 2ML 2 MG/ML VIAL IV PRN (13:00)
[2019-11-15] MEDS: MEROPENEM 500MG/ NS 50ML 50 ML IV SCH (15:54)
[2019-11-15] MEDS ORDERED: SODIUM HYPOCHLORITE 0.25% 480 ML SOLN IR SCH (16:00)
[2019-11-15] MEDS ORDERED: NON-FORMULARY MEDICATION (Acetaminophen With Codeine (Tylenol With Codeine #4 Tablet) 1 TA PO PRN (16:00)
--- NOTE | 2019-11-15 16:18 | NUR ---
CALLED [facility] TO SEE IF ANY OTHER CONTACT OR MENTION OF FAMILY. CALLED EMILY [phone] WHOM STATES SHE IS HER BEST FRIEND FROM CHILDHOOD AND BELIEVES SHE WOULD WANT TO BE A FULL CODE. SHE STATES THE PATIENTS PARENTS PASSED WHEN SHE WAS IN HER 20'S. SHE STATES SHE HAS TRIED TO GET HER TO DO A POA IN PAST BUT SHE NEVER WOULD AGREE SO THERE IS NOT ONE. CALLED SHANE [phone] AND SHE STATES HER AND HER FAMILY HAVE BEEN LIFE LONG FAMILY FRIENDS AND CONFIRMS THE PARENTS ARE , SHE STATES THERE WAS A BROTHER CELENA BARBOSA BUT HE DIDN'T WANT ANYTHING TO DO WITH PT LAST TIME SHE WAS REALLY SICK. ASKED EMILY ABOUT THE BROTHER AND SHE STATES SHE THINKS HE IS . SHANE AGREES THAT THE PT HAS NO POA BUT STATES THE LAST TIME SHE WAS REALLY SICK SHE DID NOT WANT TO BE RESUSCITATED. EMILY STATES SHE IS GOING TO CALL SHANE AND THEY WILL TALK ABOUT WHOM SHOULD MAKE DECISIONS BUT WANT THE PT TO MAKE THE DETERMINATION IF ABLE. SO FINAL FINDINGS ARE FAMILY IS AND THERE ARE 2 FRIENDS WITH DIFFERING OPINIONS THAT HAVE BEEN CALLED TO ASSIST IN THE PAST WITH THIS PATIENT AND HER CARE. NO POA FOUND OR DOCUMENTED ANYWHERE HERE OR WITH FRIENDS.
[2019-11-15] MEDS ORDERED: FAMOTIDINE 20 MG TAB PO SCH (17:00)
[2019-11-15] MEDS: ASCORBIC ACID 500 MG TAB PO SCH (17:05)
[2019-11-15] MEDS: GABAPENTIN 300 MG CAP PO SCH (17:05)
[2019-11-15] MEDS: FERROUS SULFATE 325 MG TAB PO SCH (17:05)
[2019-11-15] MEDS: DOCUSATE SODIUM 100 MG CAP PO SCH (17:05)
[2019-11-15] MEDS: SUCRALFATE 1 GM TAB PO SCH ×2 (17:05→21:00)
--- NOTE | 2019-11-15 17:50 | NUR ---
The pt. was admitted from ER via stretcher with numerous wounds and AMS. The pt. screams out when moved. A wound care consult will be send.
[2019-11-15 17:58] VITALS: BP 116/59
[2019-11-15 18:12] VITALS: BP 116/59
[2019-11-15 18:41] LABS: CREATINE KINASE 44 IU/L (29-168)
--- NOTE | 2019-11-15 19:18 | NUR ---
Patient received lying in bed. AAO x 1. No signs of pain or respiratory distress. Suprapubic catheter draining light avtar urine. Multiple wounds/scabs noted on bilateral legs and un-stageable sacral wound. Fall precautions implemented. Call light within reach.
[2019-11-15 20:00] VITALS: BP 108/58
--- NOTE | 2019-11-15 20:47 | Consultation ---
DATE OF CONSULTATION: Pulmonary Critical Care Consultation CHIEF COMPLAINT: Worsening responsiveness. HISTORY OF PRESENT ILLNESS: The patient is a 54-year-old woman. She has a history of cirrhosis and end-stage liver disease. She has recurrent ascites and has required paracenteses in the past. She also has a history of hepatic encephalopathy as well as thrombocytopenia from her liver disease. The patient has a history of urological disease and kidney disease. She has had ureteral obstructions and has chronic renal failure, stage 4. She was recently hospitalized at [facility] with decreased responsiveness and hepatic encephalopathy. She improved with treatment and was discharged. She now returns from the nursing facility with worsening responsiveness. Her x-ray also shows some bilateral pleural effusions. She is not having any fever. She did not complain of chest pain. PAST SURGICAL HISTORY: 1. Status post evacuation of rectus hematoma, approximately one year ago. 2. Status post urological interventions for ureteral obstruction. 3. History of eye surgery. 4. History of prior skin graft. PAST MEDICAL HISTORY: 1. History of decubitus ulcers. 2. Chronic renal failure, stage 4. 3. Cirrhosis. 4. Thrombocytopenia. 5. Chronic leg edema and venous stasis. SOCIAL HISTORY: The patient is no longer smoking. She is not a drinker. She stays in a nursing facility. FAMILY HISTORY: Family history is noncontributory. ALLERGIES: THE PATIENT IS ALLERGIC TO CEPHALOSPORIN. REVIEW OF SYSTEMS: The patient is afebrile. She has decreased responsiveness. She is not complaining of a headache. There was no report of shortness of breath. There was no reported chest pain. She is not having any nausea or vomiting. She has chronic leg edema. PHYSICAL EXAMINATION: VITAL SIGNS: The blood pressure is 106/55 and the saturation is 96%. The pulse is 80 and the respiratory rate is 18. HEENT: Shows no facial swelling or erythema. LYMPHATIC: Shows no submandibular, cervical, or supraclavicular adenopathy. CARDIAC: Reveals regular rate and rhythm with normal S1 and S2. LUNGS: Auscultation of lungs reveals clear breath sounds bilaterally. There is no wheezing. ABDOMEN: Soft and tender. There is ascites. EXTREMITIES: Shows chronic leg edema. There are some venous stasis ulcerations. NEUROLOGICAL: Shows the patient to be obtunded and not responding well. LABORATORY DATA: White blood cell count is 7.2 and the hemoglobin is 8.4. The platelet count is 108. BUN to creatinine ratio is 73 to 2.7. The carbon dioxide is 19. Chloride is 112. Magnesium is 2.2. The total bilirubin is 1.2 and AST is 49. The alkaline phosphatase is 701. Albumin is 2.1. PT is normal. RADIOGRAPHIC DATA: Chest x-ray shows cardiomegaly and trace bilateral pleural effusions. CT scan of the brain shows no acute abnormalities. IMPRESSION: 1. Hepatic encephalopathy. 2. Msoui-iq-wynkmbc liver disease related to cirrhosis. 3. Chronic renal failure, stage 4. 4. Thrombocytopenia. 5. Chronic venous stasis and lymphedema. 6. Anemia, unspecified. PLAN: 1. The patient has been DNR on prior admissions. She has personally told me that she does not want CPR, defibrillation, or mechanical ventilation on prior admissions. 2. Lactulose and rifaximin as tolerated for hepatic encephalopathy. 3. Panculture the patient in view of appropriate antibiotics. 4. Monitor platelet count as well as hemoglobin. 5. Repeat renal function and electrolytes in the morning. 6. Prognosis is poor. Dalton Dill MD [facility]/MODL /[id number]
[2019-11-15 21:00] VITALS: BP 108/58
[2019-11-15] MEDS: MIRTAZAPINE 15 MG TAB PO SCH (21:00)
[2019-11-15] MEDS: SODIUM CHLORIDE 0.9% 1000ML 1,000 ML IV SCH (22:08)
[2019-11-15] MEDS: FAMOTIDINE 20 MG/2 ML VIAL IV SCH (22:14)
[2019-11-16] VITALS (8 sets, daily range): BP systolic 93–113; BP diastolic 49–73
[2019-11-16] MEDS: MEROPENEM 500MG/ NS 50ML 50 ML IV SCH ×2 (01:31→11:43)
--- NOTE | 2019-11-16 01:33 | NUR ---
Wound dressing performed per MD's orders. Sacral region cleansed and allevyn foam applied to un-stageable wound on right buttock. Entry point of suprapubic catheter cleansed; dressing applied. Patient re-positioned. Suprapubic catheter draining blood -tinged urine.
[2019-11-16] MEDS: SODIUM CHLORIDE 0.9% 1000ML 1,000 ML IV SCH (02:48)
[2019-11-16] MEDS: LEVOTHYROXINE SODIUM 100 MCG TAB PO SCH (05:20)
--- NOTE | 2019-11-16 06:45 | NUR ---
Walking rounds done. Shift report given to oncoming nurse regarding patient's status.
[2019-11-16] MEDS: SUCRALFATE 1 GM TAB PO SCH ×4 (07:30→20:51)
[2019-11-16 07:47] LABS: LYMPHOCYTES # (AUTO) 0.6 (1.0-3.2); LYMPHOCYTES % 9.9 % (18.0-39.1); MEAN CORPUSCULAR HEMOGLOBIN 28.9 pg (28-32); MEAN CORPUSCULAR HGB CONC 30.4 g/dL (31-35); MONOCYTES # (AUTO) 0.2 (0.2-0.8); NEUTROPHILS # (AUTO) 5.1 (2.1-6.9); NEUTROPHILS % 85.8 % (38.7-80.0); PLATELET COUNT 82 x10e3/uL (140-360); RED BLOOD COUNT 2.39 x10e6/uL (3.6-5.1); RED CELL DISTRIBUTION WIDTH 15.5 % (11.7-14.4)
[2019-11-16 07:54] LABS: HEMATOCRIT 22.7 % (34.2-44.1)
[2019-11-16 07:56] LABS: HEMOGLOBIN 6.9 g/dL (12.0-16.0)
[2019-11-16 08:10] LABS: CREATINE KINASE 39 IU/L (29-168)
[2019-11-16] MEDS ORDERED: SODIUM HYPOCHLORITE 0.25% 480 ML SOLN IR ONE (09:00)
[2019-11-16] MEDS: DOCUSATE SODIUM 100 MG CAP PO SCH ×2 (09:00→16:59)
[2019-11-16] MEDS: GABAPENTIN 300 MG CAP PO SCH ×2 (09:00→16:59)
[2019-11-16] MEDS: BALSAM PERU/CASTOR OIL 60 GM OINT...G. TP SCH (09:00)
[2019-11-16] MEDS: ASCORBIC ACID 500 MG TAB PO SCH ×2 (09:00→16:59)
[2019-11-16] MEDS: FAMOTIDINE 20 MG/2 ML VIAL IV SCH ×2 (09:00→16:59)
[2019-11-16] MEDS ORDERED: LEVOTHYROXINE SODIUM 50 MCG TAB PO SCH (09:00)
[2019-11-16] MEDS: FERROUS SULFATE 325 MG TAB PO SCH ×2 (09:00→16:59)
--- NOTE | 2019-11-16 09:00 | NUR ---
Hgb 6.9 and platelets 82 , BP 93/49 reported to JOE Ocampo rounding for Dr. Knott today. Will check occult blood stool, check with case management regarding POA status. No other orders received at this time.
[2019-11-16 09:07] LABS: ALBUMIN 1.9 g/dL (3.5-5.0); ALBUMIN/GLOBULIN RATIO 0.5 (0.8-2.0); CREATININE, SERUM 2.47 mg/dL (0.57-1.11)
[2019-11-16] MEDS ORDERED: SODIUM BICARBONATE 8.4% IV ONE (10:45)
[2019-11-16] MEDS ORDERED: DEXTROSE 5% IV ONE (10:45)
--- NOTE | 2019-11-16 11:19 | Consultation ---
DATE OF CONSULTATION: 11/16/2019 Nephrology Consult REASON FOR CONSULTATION: Chronic kidney disease. HISTORY OF PRESENT ILLNESS: The patient is a 54-year-old white female with significant history of cirrhosis and end-stage liver disease forming recurrent ascites, requiring paracentesis. She also has chronic kidney disease, stage IV related to obstructive uropathy and has been seen by urologist. She was admitted to this hospital earlier this month in hepatic encephalopathy, when her renal function remained stable with serum creatinine around 2.6. She now returns from the nursing facility with worsening responsiveness. X-ray showed some bilateral pleural effusions. No fever. The patient is presently lethargic and only able to answer yes or no. Seems to deny any nausea, vomiting, diarrhea, abdominal or flank pain, dysuria or gross hematuria. PAST SURGICAL HISTORY: She has had urological intervention in the past for ureteral obstruction. Apparently, now has a residual left ureteral J-stent with a large staghorn calculus present in the left kidney. SOCIAL HISTORY: No longer smoking. Does not drink alcohol. FAMILY HISTORY: Noncontributory. MEDICATIONS: Reviewed in MAR. REVIEW OF SYSTEMS: Please see HPI above. PHYSICAL EXAMINATION: GENERAL: The patient is lying supine in bed, without acute distress. She is awake, but lethargic. Exam is limited by cooperation from the patient. HEENT: Normocephalic, atraumatic head. Unable to make out any icterus because of her lack of cooperation. NECK: Appears supple without jugular venous distention. CHEST: She is breathing symmetrically. I did not hear any wheezing. CARDIOVASCULAR: Shows regular rate and rhythm with normal S1, S2. ABDOMEN: Soft, nontender. There is probably ascites. EXTREMITIES: Both lower legs have chronic edema with oozing and is covered by dressing. NEUROLOGIC: She is obtunded, not able to cooperate with further exam. LABORATORY DATA: White count on admission was 7.2, hemoglobin 8.4, platelets 108,000. BUN 73, creatinine 2.7, bicarb 19, serum albumin 2.1. Chest x-ray showed cardiomegaly, trace bilateral pleural effusions. Lab update, serum chemistry today show a creatinine of 2.4, BUN 76, bicarb 16, chloride 118. Sodium 144, potassium 4, glucose 127, calcium 8, albumin 1.9. IMPRESSION: 1. Chronic kidney disease, stage IV, related to obstructive uropathy and stone disease. She is status post urological interventions and currently has a residual left ureteral J-stent with a staghorn calculus sitting in the left kidney. Right kidney has had mild hydronephrosis. Her present degree of renal dysfunction is unchanged over the last several months at least. 2. Pancytopenia, secondary to chronic liver disease with hemoglobin, perhaps exacerbated by chronic kidney disease. 3. Blood pressure, relatively low consistent with ascites. The patient with redistribution of blood in the splanchnic areas. 4. Fluid status, x-ray does show small bilateral effusions and she probably has ascites. 5. Non-anion gap metabolic acidosis, secondary to chronic kidney disease, stage IV. RECOMMENDATIONS: 1. Agree with gentle hydration for now, until oral intake is established. 2. Hold all diuretics for now. 3. Treatment of hepatic encephalopathy is ongoing. 4. Avoid all known nephrotoxins, specially aminoglycoside antibiotics and IV iodine contrast. 5. Per note from Dr. Dill, the patient has expressed an unwillingness for aggressive measures such as CPR, defibrillation, and intubation. She probably does not need dialysis, but that can be addressed at a time when the patient is more alert and oriented. We will follow along and offer recommendations. Thank you for the opportunity to participate in her care. Diogenes Porras MD [facility]/MODL /[id number]
[2019-11-16] MEDS ORDERED: SODIUM CHLORIDE 0.9% 250ML 250 ML IV ONE (11:45)
--- NOTE | 2019-11-16 12:45 | Consultation ---
DATE OF CONSULTATION: REASON FOR CONSULTATION: Multiple leg ulcers. HISTORY OF PRESENT ILLNESS: This patient who is well known to me from before, unfortunately 54-year-old female with liver cirrhosis, multiple admissions, kidney abscess before, kidney infection, chronic kidney disease stage 4, debility, getting progressively worse over the last year or so. She had underlying chronic kidney disease, liver cirrhosis, thrombocytopenia, leg edema, venous stasis ulcers, multiple wounds before, comes in with overall decline in general condition, confusion, less responsive, came here started on IV fluid. She was found to be extremely anemic and the patient is currently more alert. No complaints, just weak, refusing medical treatment. The patient who is currently lying in bed comfortably. She does have history of chronic kidney disease, staghorn calculus, liver cirrhosis, history of kidney infection, history of intraabdominal hematoma, which was complicated with infection, prolonged course of antibiotic before surgical evacuation coming back with the above problems. PAST MEDICAL HISTORY: As above. PAST SURGICAL HISTORY: Multiple debridement and evacuation of hematoma. ALLERGIES: CEPHALEXIN, BUT SHE IS OKAY WITH CEPHALOSPORIN BEFORE. SOCIAL HISTORY: There is no smoking, drug abuse, or alcohol abuse. FAMILY HISTORY: Noncontributory. REVIEW OF SYSTEMS: GENERAL: She is just weak. HEENT: Negative. PULMONARY: Negative. CARDIAC: Negative. LABORATORY DATA: White count is 5.93, hemoglobin 6.9, sodium 144, potassium 4.3, and creatinine 2.47. MEDICATIONS: She is currently on meropenem, Synthroid, gabapentin, Colace, trazodone, and aspirin. PHYSICAL EXAMINATION: GENERAL: Currently alert, comfortable. HEENT: Normocephalic, not icteric. NECK: Supple. CHEST: Clear bilateral. HEART: S1, S2. No S3, S4, or murmur. ABDOMEN: Soft. Bowel sounds present. No tenderness EXTREMITIES: She has chronic edema bilateral. She has multiple wounds dressed currently. There is some serosanguineous drainage noted. There is also an area of ischemia noted in the heel and the tip of the toes scattered. LABORATORY DATA: Her chest x-ray showed cardiomegaly with bilateral pleural effusion. Her glucose 127, albumin 1.9. IMPRESSION: 1. Altered mental status on admission, I think is due to sepsis also concerned of dehydration. 2. Chronic kidney disease stage 4 on hemodialysis from a history of kidney stone. 3. History of pancytopenia due to liver disease. 4. Chronic liver disease. 5. Multiple wounds of lower extremities, infected and ischemic venous stasis ulcer combination. Agree with meropenem for kidney disease. I agree with local care. The patient had so many admissions recently, she is getting tired and exhausted. Since the patient does have underlying malnutrition and debility, she wants comfort care. We will follow with you. MD TULIO Jesus/KENAN /[id number]
--- NOTE | 2019-11-16 13:09 | NUR ---
WOUND CARE CONSULT FOR 54 YO FEMALE HX OF AMS, CELLULITIS,GANGRENE ,UTI DORCAS 11 ON STRICT PUP STATUS AND INTERVENTIONS AND ALTERNATING PRESSURE MATTRESS LABS: WBC-7.23 HGB_8.4 GLUCOSE-94 SKIN ASSESSMENT COMPLETE PATIENT PRESENTS WITH BILATERAL GENERALIZED NECROTIC LOWER EXTREMITIES DR CURRENT TREATMENT PLAN CONSIST OF DAILY DAKINS AND KERLIX WRAP ALSO PRESENT IS UNSTAGEABLE RIGHT SACRO GLUTEAL ULCERATION 10CM X5CM 50% SLOUGH AND 50% ESCHAR RECOMMENDATIONS: NURSING TO CONTINUE TO MAINTAIN STRICT PUP STATUS AND INTERVENTIONS AND ALTERNATING PRESSURE MATTRESS NURSING TO CONTINUE TO ASSIST PATIENT OUT OF BED FOR MEALS AND MUCH TOLERATED NURSING TO CONTINUE TO ASSIST PATIENT NEEDED WITH MEALS AND NUTRITIONAL SUPPLEMENTS TO ENSURE PROPER REQUIREMENTS FOR HEALING NURSING TO CONTINUE TO OFFLOAD FEET AND HEELS NEEDED WITH PILLOW SUSPENSION WHEN IN BED NURSING TO CLEAN RIGHT SACRO GLUTEAL UNSTAGEABLE ULCERATION WITH NORMAL SALINE DAILY AND APPLY SANTYL OINTMENT AND ALLEVYN FOAM DRESSING Addendum: 11/16/19 at 1317 by Adair Esteves RN Amended: Links added.
--- NOTE | 2019-11-16 13:12 | NUR ---
ASSESSMENT: Spiritual distress Pt remorseful. Pt states she has "a lot of things going on." Pt requested prayer. Intervention: Provided empathic listening and pastoral presence. Facilitated identification of emotions. Provided prayer and information on how to reach plant safety leader, if needed. Outcome: Will follow as able. GAYATHRI Irbylain Spiritual Care Department O: [phone]
--- NOTE | 2019-11-16 14:10 | Progress Note ---
DATE: CONSULTING PHYSICIANS: Include: 1. Dr. Black with Infectious Disease. 2. Dr. Dill with Pulmonology. 3. Dr. Hammond with Nephrology. 4. Dr. Herman with Wound Care. 5. Dr. Ramos with Palliative Care. 6. Dr. Rinaldi with Cardiology. SUBJECTIVE: The patient is lying supine in bed. She is less confused, compared to yesterday. She currently denies pain. She is complaining of hunger. Has been n.p.o. Yen Godwin, nurse practitioner with palliative care present throughout encounter. OBJECTIVE: VITAL SIGNS: Today; temperature 96.7, heart rate 68, blood pressure 93/49, respirations 20, and oxygen saturation 96%. GENERAL: The patient is lying supine in bed on her left side, talking to her friend, Vanesa. LUNGS: Clear to auscultation. Respiratory pattern even and nonlabored, breathing room air. HEENT: Extraocular eye movements intact. NECK: Supple. CARDIOVASCULAR: Regular rate and rhythm. No murmur. She is currently on D5W with 1 amp of sodium bicarbonate at 50 mL an hour via peripheral IV. ABDOMEN: Bowel sounds positive. Soft, nontender. She has a suprapubic catheter with avtar urine. EXTREMITIES: Severe 3+ pitting edema of the legs with multiple wounds. She has an unstageable sacral decubitus ulcer with small area of eschar. NEUROLOGICAL: GCS 15. Nonfocal. LABORATORY DATA: WBCs 5.93, hemoglobin 6.9, hematocrit 22.7, platelets 82, neutrophils 85.8, lymphocytes 9.9. Sodium 144, potassium 4.0, chloride 118, CO2 of 16, BUN 76, creatinine 2.47, estimated GFR 20, glucose 127, calcium 8, total bilirubin 0.9, AST 28, ALT 21, alkaline phosphatase 550, which was 701 yesterday. Total protein 5.7, albumin 1.9. Triglycerides 69, cholesterol 119, LDL 81, HDL 24. No growth from blood cultures after 24 hours. Urine culture obtained yesterday showing gram-negative bacillus. Yesterday, a 12-lead EKG showed sinus tachycardia with fusion complexes with a ventricular rate of 107. ASSESSMENT AND PLAN: 1. Acute urinary tract infection with gram-negative bacillus, present on arrival (likely multidrug resistant organism Klebsiella pneumoniae, extended spectrum beta-lactamase producing as per previous urine culture). Infectious Disease following, on Merrem. Continue IV fluids as per Nephrology. 2. Acute kidney injury on chronic kidney disease, stage 4; eGFR is 20. Nephrology following. 3. Severe bilateral aortoiliac-femoral peripheral arterial disease. Cardiology consulted today for possible intervention. Case was discussed with Dr. Knott, Yen Godwin, with Palliative Care, the patient, and the patient's friend, Vanesa. The patient is open to having the procedure if this is possible in order to improve her severe peripheral arterial disease and give her better quality of life. Everyone is in agreement with DNR status. 4. Anxiety/depression, on Remeron and trazodone. 5. Hepatitis C cirrhosis with hepatic encephalopathy. Confusion is improving. Alkaline phosphatase is improving. Continue to monitor. 6. Acute metabolic encephalopathy. Confusion has improved dramatically. The patient was very lethargic yesterday. Minimal communication this morning; however, now is much more awake, asking to be able to the eat. We will get a bedside swallow evaluation to rule out dysphagia by speech language pathology. 7. Chronic bilateral lower extremity cellulitis/arterial ulcers. Wound care physician has been consulted. We will ask that the wounds be cultured. Cardiology consulted for possible intervention. 8. Transaminitis with history of hepatitis C. Continue to monitor LFTs, which are improving. 9. Chronic obstructive pulmonary disease without exacerbation. Pulmonology following. Follow up chest x-ray results. 10. Hypothyroidism. Levothyroxine was increased from 75 mcg to 100 mcg daily earlier this month. We will need to follow up TSH in approximately 3 months. 11. Prophylaxis, Pepcid. TIME SPENT: 35 minutes. Dictated by Terrence Archibald NP Gray Knott MD [facility]/MODL /[id number]
--- NOTE | 2019-11-16 14:14 | Progress Note ---
DATE: SUBJECTIVE: The patient is more awake today. She is not having fevers. She still has leg swelling. PHYSICAL EXAMINATION: VITAL SIGNS: The patient is afebrile. The blood pressure is 93/50 with a pulse of 85. The saturation is 94%. HEENT: Shows no facial swelling or erythema. CARDIAC: Reveals regular rate and rhythm with a normal S1 and S2. LUNGS: Auscultation of lungs reveals rhonchorous breath sounds bilaterally. There is no wheezing. ABDOMEN: Soft and nontender. There is no rebound or guarding. EXTREMITIES: Shows 3 to 4+ venous stasis. There are some wounds. LABORATORY DATA: The hemoglobin is 6.9 and the white blood cell count is 5.9. The platelet count is 82. The BUN to creatinine ratio is 76 to 2.47. The carbon dioxide is 16 and albumin is 1.9. Urinalysis shows greater than 50 white blood cells. IMPRESSION: 1. Severe peripheral vascular disease with poorly healing leg wounds. 2. [id number] liver disease related to cirrhosis. 3. Chronic renal failure, stage 4. 4. Thrombocytopenia. 5. Anemia, unspecified. PLAN: 1. The patient will receive packed red blood cells. 2. Cardiology evaluation for possible intervention for peripheral vascular disease. 3. Lactulose and rifaximin as tolerated. 4. Continue current antibiotics and await culture results. Dalton Dill MD [facility]/MODL /[id number]
--- NOTE | 2019-11-16 15:53 | NUR ---
SPOKE WITH PT WHOM STATES SHE WANTS BOTH FRIENDS TO MAKE DECISIONS, ASKED HER WITH VICE PRESIDENT SUPPLY CHAIN FOR PALLIATIVE CARE MAZIN PRESENT IF SHE HAD TO PICK ONE WHOM WOULD SHE WANT TO MAKE HER DECISIONS AND SHE STATES EMILY. EMILY CALLED ME ASKING FOR ME TO EMAIL HER A POWER OF PHYSICIAN SCIENTIST FORM. I EXPLAINED TO HER THAT THE PT WOULD HAVE TO BE THE ONE TO SIGN.
--- NOTE | 2019-11-16 16:12 | NUR ---
Nutrition Intervention Note RD Recommendation(s) for Physician: -Continue current diet as ordered and consistency per ST -Damien BID to promote wound healing -Recommend multivitamin, zinc, and vitamin C for wound healing -If PO intake <50% of meals, offer Ensure nutrition supplement Plan of Care: RD following, monitoring for tolerance and adequacy Nutrition reason for involvement: Nutrition Risk Trigger (MST 4) and pressure ulcer RD Assessment: (11/15) Pt is a 54 year old female admitted with altered mental status, cellulitis, gangrene, and UTI. MANUFACTURING PROCESS TECHNICIAN evaluated pt today and recommended a mechanical soft/chopped diet. Pt stated she usually eats all of her meals. Pt reports no weight loss but was unsure of her usual weight. Per weight history in chart, pt had weighed 170-180 lbs from previous admission in October. Pt currently has a weight of 152 lbs in chart. Suspect possible weight error. Per wound care note, pt has an unstageable sacrogluteal ulcer. Recommend Damien BID to promote wound healing. Informed RN of recommendation. Will continue to monitor. Principal Problems/Diagnoses: altered mental status, cellulitis, gangrene, and UTI PMH: decubitus ulcers, chronic renal failure stage 4, cirrhosis, thrombocytopenia, chronic leg edema and venous stasis GI: non-tender, large abdomen Skin: bilateral generalized necrotic lower extremities, unstageable right sacro gluteal ulceration Labs: (11/15) BUN 76, Cr 2.47, Glu 127, Ca 8. Meds: meropenem, pepcid, levothyroxine, carafate, ferrous sulfate, colace, Vitamin C, lasix, zofran Ht: 62 inches Wt: 152 lbs BMI: 27.8 kg/m2 IBW: 110 lbs Malnutrition Evaluation (11/16/19) The patient does not meet criteria for a specified degree of malnutrition at this time. Will re-evaluate at follow-up as appropriate. Nutrition Prescription (Diet Order): cardiac diet with mechanical soft/chopped consistency Estimated Nutritional Needs: 1244 1382 calories/day (18-20 kcal/kg CBW) 83-104 g protein/day (1.2-1.5 g pro/kg CBW) Diet Adequacy: Meeting calorie needs, Meeting protein needs Tolerance: Tolerating PO Diet Education Needs Assessment: RD is available for diet education as needed Nutrition Care Level: low Nutrition Diagnosis: Increased nutrient needs related to increased demand for protein as evidenced by unstageable sacrogluteal ulcer Goal: Patient will meet 75-100% of estimated needs by follow up Progress: N/A Interventions: - fat/cholesterol/sodium and texture- modified diet, Commercial beverage, Multivitamin/mineral supplement therapy, Collaboration with other providers Monitoring/Evaluation: -Total energy intake, Total protein intake, Modified diet, Liquid supplement, Weight change Signed: Caroline Villasenor RD, LD
[2019-11-16] MEDS: ASPIRIN 81 MG CHEW TAB PO SCH (16:58)
[2019-11-16] MEDS: FUROSEMIDE 40 MG TAB PO SCH (16:59)
--- NOTE | 2019-11-16 17:26 | NUR ---
Notified JOE Ocampo that occult blood is positive.
--- NOTE | 2019-11-16 18:41 | NUR ---
Bilateral wound cultures for lower extremities were collected and taken to lab
[2019-11-16] MEDS ORDERED: HYDRALAZINE HCL 20 MG/ML VIAL IV PRN (19:15)
[2019-11-16] MEDS: MIRTAZAPINE 15 MG TAB PO SCH (20:51)
--- NOTE | 2019-11-16 23:56 | NUR ---
Dr. Bueno here to see patient. New order received for ZACARIAS.
[2019-11-17] VITALS (8 sets, daily range): BP systolic 100–133; BP diastolic 63–79
[2019-11-17] MEDS: ACETAMINOPHEN/CODEINE 300MG - 30MG TAB PO PRN ×2 (00:08→10:45)
[2019-11-17] MEDS: MEROPENEM 500MG/ NS 50ML 50 ML IV SCH ×2 (00:15→12:15)
--- NOTE | 2019-11-17 01:02 | Diagnostic Imaging Report ---
EXAM: Abdomen Radiograph 1 View(s) INDICATION: ^Cirrhosis of the liver, FOBT+ ^[id number] ^0000 ^Y COMPARISON: None FINDINGS: Limited study due to patient body habitus and motion artifact. The bowel gas pattern is nonspecific. No abnormal soft tissue calcification. No gross acute osseous abnormality. IMPRESSION: Limited study. The bowel gas pattern is nonspecific. Signed by: Chet Wang MD on 11/17/2019 12:59 AM
--- NOTE | 2019-11-17 01:15 | NUR ---
Patient's leg wounds cleansed with Dakin's solution. This nurse noted that gauze and Kerlix was sticking to the open wounds. Patient in a lot of pain (10/10) despite administration of Tylenol #3. Hemant Hernandez (AFFILIATE MARKETING COORDINATOR) notified. No new order received. Bilateral wounds thoroughly cleansed and left open to air. Would pass on to Day Nurse for Wound Care Team to re-evaluate wound. Patient re-positioned and made comfortable.
[2019-11-17] MEDS: TRAZODONE HCL 50 MG TAB PO PRN (01:40)
[2019-11-17 06:00] LABS: BASOPHILS % 0.4 % (0.0-1.0); EOSINOPHILS % 0.3 % (0.0-6.0); HEMATOCRIT 26.4 % (34.2-44.1); HEMOGLOBIN 8.1 g/dL (12.0-16.0); LYMPHOCYTES # (AUTO) 1.1 (1.0-3.2); LYMPHOCYTES % 15.8 % (18.0-39.1); MEAN CORPUSCULAR HEMOGLOBIN 29.2 pg (28-32); MEAN CORPUSCULAR HGB CONC 30.7 g/dL (31-35); MEAN CORPUSCULAR VOLUME 95.3 fL (81-99); MONOCYTES # (AUTO) 0.4 (0.2-0.8); MONOCYTES % 6.5 % (4.4-11.3); NEUTROPHILS # (AUTO) 5.2 (2.1-6.9); NEUTROPHILS % 76.7 % (38.7-80.0); PLATELET COUNT 107 x10e3/uL (140-360); RED BLOOD COUNT 2.77 x10e6/uL (3.6-5.1); RED CELL DISTRIBUTION WIDTH 16.6 % (11.7-14.4)
[2019-11-17 06:21] LABS: ALBUMIN 2.2 g/dL (3.5-5.0); ALBUMIN/GLOBULIN RATIO 0.4 (0.8-2.0); ANION GAP 15.1 mmol/L (8-16); CALCIUM 8.3 mg/dL (8.4-10.2); CREATININE, SERUM 2.75 mg/dL (0.57-1.11); POTASSIUM 4.1 mmol/L (3.5-5.1)
[2019-11-17] MEDS: LEVOTHYROXINE SODIUM 100 MCG TAB PO SCH (06:30)
--- NOTE | 2019-11-17 07:00 | NUR ---
Patient resting comfortably. No acute distress noted. Shift report given to oncoming nurse regarding patient's status.
--- NOTE | 2019-11-17 07:10 | NUR ---
RCD PT AT BED PT IS ALERT AND ORIENTED RESTING ON BED IV PATENT BY SALINE FLUSH BED LOW AND LOCKED CALL LIGHT IN REAC
[2019-11-17] MEDS: SUCRALFATE 1 GM TAB PO SCH ×4 (07:30→20:54)
[2019-11-17] MEDS: FAMOTIDINE 20 MG/2 ML VIAL IV SCH ×2 (09:00→17:00)
[2019-11-17] MEDS: ASCORBIC ACID 500 MG TAB PO SCH ×2 (09:00→17:00)
[2019-11-17] MEDS: ASPIRIN 81 MG CHEW TAB PO SCH (09:00)
[2019-11-17] MEDS: DOCUSATE SODIUM 100 MG CAP PO SCH ×2 (09:00→17:00)
[2019-11-17] MEDS: FUROSEMIDE 40 MG TAB PO SCH (09:00)
[2019-11-17] MEDS: BALSAM PERU/CASTOR OIL 60 GM OINT...G. TP SCH (09:00)
[2019-11-17] MEDS: FERROUS SULFATE 325 MG TAB PO SCH ×2 (09:00→17:00)
[2019-11-17] MEDS: GABAPENTIN 300 MG CAP PO SCH ×2 (09:00→17:00)
--- NOTE | 2019-11-17 12:14 | Progress Note ---
DATE: SUBJECTIVE: The patient is seen and evaluated. Available labs and notes reviewed. Discussed with Dr. Black in details. REVIEW OF SYSTEMS: The patient wants more pain medication. No nausea, vomiting, fever, chills, chest pain, shortness of breath. PHYSICAL EXAMINATION: VITAL SIGNS: Temperature is 97.3, pulse is 75, respiration 18, and blood pressure 100/63. GENERAL: Alert and oriented, weak and lethargic looking, but seems to be alert and oriented x3. CV: S1, S2. CHEST: Equal expansion, decreased breath sounds. No acute distress. ABDOMEN: Soft and nontender with positive bowel sounds. HEENT: Moist. No pallor. No JVD. Her face also is swollen compared with previously that I have seen her in the past. EXTREMITIES: 3+ edema of lower extremity, multiple wounds, which seem to be venous ulcers with few necrotic areas of bilateral lower extremities. MEDICATIONS: Medication list reviewed. As far as Infectious Disease point of view patient is on meropenem. LABORATORY STUDIES: White blood cells 6.77, hemoglobin 8.1, platelet 107. Sodium 139, potassium 4.1 creatinine 2.75. MICROBIOLOGY: Urine cultures gram-negative bacilli and yeast. Blood culture is negative. Repeat wound culture from 11/16/2019 is pending. RADIOLOGY STUDIES: Abdominal x-ray showed limited study. Bowel gas pattern is nonspecific and chest x-ray done on 11/05 showed unchanged cardiomegaly and pulmonary venous congestion with a trace bilateral pleural effusion better suspected. She had a CT of the brain on 11/14 showed no discrete areas of abnormal densities, no mass, no hemorrhage. However, it was suboptimal study due to motion artifact, grossly no acute intracranial hemorrhage, mass, hydrocephalus or midline shift. No significant change compared to head CT of 05/25/2019. ASSESSMENT AND PLAN: 1. Altered mental status, seems to be resolving. 2. Concern sepsis on admission. 3. Chronic kidney disease stage 4, on hemodialysis. 4. Kidney stones. 5. Chronic liver disease. 6. Multiple wounds on lower extremities with infected ischemic venous ulcers. 7. Continue with Merrem. 8. Continue local care. Encourage oral intake and protein optimization. She is dehydrated and same time dialyzed. Overall seems weak and lethargic. Pain management per others. However, seems to be controlled somewhat. Overall very poor and guarded prognosis, very pleasant lady. Thank you for this dictation. Discussed with Dr. Black in details. Please refer to chart for more information. Dictated by Jules Zavala) CHRIS Miner MD MENDEL Jesus/KENAN /[id number]
--- NOTE | 2019-11-17 12:24 | Progress Note ---
DATE: 11/17/2019 Nephrology Progress Note SUBJECTIVE: The patient is undergoing renal arterial Doppler. No shortness of breath or nausea. RN confirms that she is taking 75% of her meals and is drinking. OBJECTIVE: VITAL SIGNS: Stable. Blood pressure 100/63, pulse 75 per minute, respirations 18 per minute. NECK: Supple without jugular venous distention. CHEST: Symmetrical air entry. CARDIOVASCULAR: Regular rate and rhythm. ABDOMEN: Soft with some ascites and distention. EXTREMITIES: Both lower legs have chronic edema with inflammation. NEUROLOGIC: The patient is awake and appears to be oriented at least to self and place. LABORATORY DATA: Hemoglobin 8.1, white count 6.7, platelets 107,000. Serum chemistries significant for bicarb of 18, BUN 77, creatinine 2.75, total calcium 8.3, albumin 2.2. Urinalysis shows 1+ protein, 3+ blood, greater than 50 white cells and greater than 50 red cells with many bacteria seen. IMPRESSION: 1. Chronic kidney disease secondary to obstructive uropathy, overall renal function seems to be around baseline. 2. Metabolic acidosis, secondary to above. Some improvement on the IV sodium bicarbonate. However, we will change to oral sodium bicarbonate tablet to conserve fluid. 3. Urinalysis reflective of infection, started empirically on meropenem. Follow up on urine culture results. 4. Anemia secondary to chronic kidney disease. We will monitor hemoglobin in the hospital. Diogenes Porras MD [facility]/MODL /[id number]
--- NOTE | 2019-11-17 12:58 | NUR ---
ST NOTE: Attempt to see pt for diet tolerance at 1200, having ultrasound, 1255 too fatigued to participate. SABINE Dover reports pt tolerating diet. Will follow up 11/20/19
--- NOTE | 2019-11-17 14:00 | NUR ---
DRESSING CHANGED ON BACK AND LOWER LEGS
--- NOTE | 2019-11-17 14:54 | Progress Note ---
DATE: SUBJECTIVE: The patient is not having a fever. She has no new complaints. PHYSICAL EXAMINATION: VITAL SIGNS: Blood pressure is 129/72 and saturation is 98%. HEENT: Shows no facial swelling or erythema. CARDIAC: Reveals regular rate and rhythm with normal S1, S2. LUNGS: Auscultation of lungs reveals decreased breath sounds at the bases. There is no wheezing. ABDOMEN: Soft. There is some ascites. EXTREMITIES: There is 3 to 4+ leg edema. LABORATORY DATA: White blood cell count is 6.7, hemoglobin is 8.1, and the platelet count is 107. BUN:creatinine ratio is 77:2.75. IMPRESSION: 1. Severe peripheral vascular disease with poorly healing leg wounds. 2. Mcdmi-gj-tphpdqn liver disease related to cirrhosis. 3. Chronic renal failure, stage 4. 4. Thrombocytopenia. 5. Anemia. PLAN: 1. Await complete evaluation by Cardiology. 2. Continue lactulose and Rifaximin. 3. Continue to monitor blood counts. 4. Case discussed with Internal Medicine. Dalton Dill MD [facility]/MODL /[id number]
--- NOTE | 2019-11-17 15:10 | NUR ---
WOUND CARE CONSULT FOR 54 YO FEMALE HX OF AMS, CELLULITIS,GANGRENE ,UTI DORCAS 11 ON STRICT PUP STATUS AND INTERVENTIONS AND ALTERNATING PRESSURE MATTRESS LABS: WBC-6.77 HGB_8.1 GLUCOSE-127 MICRO: LEFT AND RIGHT LEG WOUND CULTURE PENDING. URINE CULTURE: PRELIMINARY; GRAM NEGATIVE BACILLUS. SKIN ASSESSMENT COMPLETE PATIENT PRESENTS WITH BILATERAL GENERALIZED NECROTIC LOWER EXTREMITIES DR CURRENT TREATMENT PLAN CONSIST OF DAILY DAKINS AND KERLIX WRAP ALSO PRESENT IS UNSTAGEABLE RIGHT SACRO GLUTEAL ULCERATION 10CM X5CM 50% SLOUGH AND 50% ESCHAR, RED BLANCHABLE PERIWOUND. RECOMMENDATIONS: NURSING TO CONTINUE TO MAINTAIN STRICT PUP STATUS AND INTERVENTIONS AND ALTERNATING PRESSURE MATTRESS. NURSING TO CONTINUE TO ASSIST PATIENT OUT OF BED FOR MEALS AND MUCH TOLERATED. NURSING TO CONTINUE TO ASSIST PATIENT NEEDED WITH MEALS AND NUTRITIONAL SUPPLEMENTS TO ENSURE PROPER REQUIREMENTS FOR HEALING. NURSING TO CONTINUE TO OFFLOAD FEET AND HEELS NEEDED WITH PILLOW SUSPENSION WHEN IN BED. NURSING TO APPLY BILATERAL HEEL PROTECTORS DAILY. NURSING TO CLEAN RIGHT SACRO GLUTEAL UNSTAGEABLE ULCERATION WITH NORMAL SALINE, PAT DRY WITH 4X4 GAUZE, AND APPLY SANTYL OINTMENT TO WOUND BED, VENELEX TO PERIWOUND AND ALLEVYN FOAM DRESSING DAILY. NURSING TO REPOSITION PATIENT SIDE TO SIDE Q2H AND NEEDED. NURSING TO CONSULT WOUND CARE NEEDED. Addendum: 11/17/19 at 1523 by Eveline Al RN Amended: Links added.
[2019-11-17] MEDS: ACETAMINOPHEN 325 MG TAB PO PRN (15:14)
[2019-11-17] MEDS: SODIUM BICARBONATE 650 MG TAB PO SCH (17:00)
--- NOTE | 2019-11-17 18:50 | NUR ---
PT RESTING ON BED BED SIDE REPORT GIVEN TO ONCOMING NURSE
--- NOTE | 2019-11-17 19:22 | NUR ---
Patient received sitting up in bed. AAO x 2. No complaints of pain. No signs of respiratory distress. Safety measures in place. Patient instructed to call for assistance when needed. Call light within reach.
--- NOTE | 2019-11-17 20:40 | Progress Note ---
DATE: 11/17/2019 SUBJECTIVE: The patient is lying supine in bed. She is currently lethargic, has recently received pain medication. She is eating well according to the nurse about 75% of meals. OBJECTIVE: VITAL SIGNS: Temperature 97.3, heart rate 75, blood pressure 100/63, respirations 18, oxygen saturation 99%. GENERAL: The patient lying supine on her left side with her hands tucked under head, right leg overlapping left leg. LUNGS: Clear to auscultation. Nonlabored respirations. Breathing room air. HEENT: EOMI. NECK: Supple. CARDIOVASCULAR: Regular rate and rhythm. No murmur. ABDOMEN: Positive bowel sounds. Soft, nontender. Suprapubic catheter with hematuria to dark avtar urine. EXTREMITIES: Severe 3+ pitting edema of the legs with multiple poorly healing wounds. She has an unstageable sacral decubitus ulcer with a small amount of eschar. NEUROLOGICAL: GCS 14, eye 3, verbal 5, motor 6. Nonfocal. MEDICATIONS: Reviewed. LABORATORY DATA: WBC 6.77, hemoglobin 8.1, hematocrit 26.4, platelets 107. Sodium 139, potassium 4.1, chloride 110, CO2 18, BUN 77, creatinine 2.75, estimated GFR 18, glucose 127, calcium 8.3, total bilirubin 1.1. AST 34, ALT 24, alkaline phosphatase 566, total protein 7.3, albumin 2.2 on 11/15. Fecal occult blood test positive on 11/14. Urine culture preliminary results show yeast species, gram-negative bacillus. Preliminary blood culture results collected on 11/14 showed no growth after 48 hours. Wound culture preliminary results from 11/15 from the right leg show gram-negative rods. KUB done today is a limited study. The bowel gas pattern is nonspecific. ASSESSMENT AND PLAN: 1. Acute urinary tract infection with gram-negative bacillus, present on admission, Infectious Disease following, on Merrem. 2. Chronic kidney disease stage 4, estimated GFR 18. Nephrology following. The patient continues to be on D5W with one amp of sodium bicarbonate at 50 mL an hour via peripheral IV. 3. Severe bilateral aortoiliac-femoral peripheral arterial disease. Cardiology following. Bilateral lower extremity arterial Doppler ultrasound shows possible evidence of significant arterial stenosis in the SFA, popliteal, ASSEMBLY LINE BRAZER and VELVET on the right lower extremity as well as the left lower extremity. The patient is open to having the procedure in order to improve her severe peripheral arterial disease. If it will give her better quality of life, we will await recommendations per Cardiology. 4. Chronic bilateral lower extremity cellulitis/arterial ulcers due to PAD. Wound care physician continues to follow. Cardiology consulted for possible intervention. Continue half Dakin solution for wound care. 5. Fecal occult blood test positive with anemia. Gastroenterology following. Hemoglobin 8.1 today after 1 unit of blood yesterday. 6. Hepatitis C, cirrhosis with hepatic encephalopathy and thrombocytopenia. Confusion improved. Currently, she is not receiving lactulose or rifaximin. Her ammonia level is within normal limits. GI following. Per speech therapy note ASSEMBLER ARRANGER attempted to see the patient for diet tolerance around noon, but the patient was having an ultrasound, too fatigued to participate and next she will follow up on 11/19. 7. Chronic obstructive pulmonary disease without exacerbation. Pulmonology following. Follow up chest x-ray results. 8. Hypothyroidism. Levothyroxine 100 mcg daily. Followup TSH in approximately three months. 9. Anxiety/depression, on Remeron and trazodone. 10. End of life. Palliative care following. DNR is in place. Advanced directive was completed today and a copy placed in the chart. Collective decision makers are Vanesa Olvera, as primary and Rae Julio [phone] as alternate. 11. Prophylaxis. Pepcid. Time spent 35 minutes. Dictated by Terrence Archibald NP MD TOBIN BerkowitzP/MEAGANL /[id number]
[2019-11-17] MEDS: MIRTAZAPINE 15 MG TAB PO SCH (20:54)
[2019-11-18] VITALS (8 sets, daily range): BP systolic 105–137; BP diastolic 57–86
[2019-11-18] MEDS: MEROPENEM 500MG/ NS 50ML 50 ML IV SCH ×3 (00:42→23:16)
--- NOTE | 2019-11-18 02:47 | Progress Note ---
DATE: 11/17/2019 Cardiology Progress Note SUBJECTIVE: No major events overnight. OBJECTIVE: VITAL SIGNS: Temperature afebrile, pulse 98, respiratory rate 20, blood pressure 104/66, and saturating 99% on room air. GENERAL: Well-developed, well-nourished, in no acute distress. CARDIOVASCULAR: Regular rate and rhythm. No murmurs, rubs, or gallops. LUNGS: Clear to auscultation anteriorly. ABDOMEN: Obese, mildly distended. NEURO AND PSYCH: Disoriented. INPATIENT MEDICATIONS: Reviewed. LABORATORY DATA: Reviewed. TELEMETRY DATA: Reviewed, shows normal sinus rhythm. ASSESSMENT: 1. Chronic lower extremity wounds. 2. Peripheral arterial disease. PLAN: Continue conservative therapy with wound care and antibiotics per primary team. Arterial Doppler reviewed shows severe bilateral lower extremity multilevel PAD with monophasic blood flow in bilateral lower extremities. No evidence of acute ischemia or thrombus and given clinical status, poor renal function, and severe anemia, not a candidate for intervention at this time. Thank you for this consult. We will continue to follow. MD ALVERTO Koch/KENAN /[id number]
--- NOTE | 2019-11-18 03:04 | NUR ---
Dr. Nicanor Bueno here to see patient. New order received for EGD procedure.
--- NOTE | 2019-11-18 04:02 | Consultation ---
DATE OF CONSULTATION: 11/16/2019 REASON FOR CONSULT: Lower extremity wounds and ulcers, peripheral arterial disease. CHIEF COMPLAINT: Could not be obtained as the patient has dementia and does not communicate. HISTORY OF PRESENT ILLNESS: This is a 54-year-old unfortunate woman, who has a history of end-stage liver disease; cirrhosis; ascites, required paracentesis in the past; chronic thrombocytopenia; and chronic bilateral lower extremity wounds. She was admitted with altered mental status. PAST MEDICAL HISTORY: As described in the HPI. SOCIAL HISTORY: Could not be obtained from the patient. Upon chart review, the patient does not smoke, drink, or abuse drugs. Stays at a nursing facility. FAMILY HISTORY: Noncontributory. OUTPATIENT MEDICATIONS: Reviewed. REVIEW OF SYSTEMS: Could not be obtained due to altered mental status. PHYSICAL EXAMINATION: VITAL SIGNS: Temperature afebrile, blood pressure 106/55, respiratory rate 18, and saturating 96% on nasal cannula. GENERAL: Middle-aged female in no acute distress. CARDIOVASCULAR: Regular rate and rhythm. No murmurs, rubs, or gallops. LUNGS: Decreased breath sounds bilateral bases. ABDOMEN: Mildly distended, nontender. NEURO AND PSYCH: Does not respond well. She is awake and alert otherwise, appears confused. EXTREMITIES: Bilateral lower extremities with severe 3+ edema, weeping. There is a large gaping wound on the right foot. It is malodorous. INPATIENT MEDICATIONS: Reviewed. LABORATORY DATA: Reviewed, shows hemoglobin of 6.9, white count is 5.9, creatinine is 2.5. Troponin is negative. IMAGING DATA: Reviewed. ASSESSMENT: 1. Lower extremity wounds. 2. History of peripheral arterial disease. PLAN: The patient has a very poor condition. She is not a good candidate for any interventions, although she has lower extremity wound and underlying severe peripheral arterial disease. She is demented DNR/DNI. Creatinine 2.5 and hemoglobin 6.9. Given all these factors, do not plan for any peripheral vascular intervention at this time as she is not be a good candidate. Continue to treat with antibiotics and wound care. We will get a peripheral arterial Doppler to rule out any acute ischemia. Thank you for this consult. We will continue to follow. MD LATONYA KochP/KENAN /[id number]
[2019-11-18] MEDS: LEVOTHYROXINE SODIUM 100 MCG TAB PO SCH (05:59)
--- NOTE | 2019-11-18 07:05 | NUR ---
RCD PT AT BED PT IS CONFUSED RESTING ON BED PT NPO FOR PROCEDURE IV PATENT BY SALINE FLUSH BED LOW AND LOCKED CALL LIGHT IN REACH
[2019-11-18] MEDS: SUCRALFATE 1 GM TAB PO SCH ×4 (07:30→20:26)
[2019-11-18] MEDS: DOCUSATE SODIUM 100 MG CAP PO SCH ×2 (08:53→17:00)
[2019-11-18] MEDS: FAMOTIDINE 20 MG/2 ML VIAL IV SCH ×2 (08:53→17:00)
[2019-11-18] MEDS: ASPIRIN 81 MG CHEW TAB PO SCH (08:53)
[2019-11-18] MEDS: FERROUS SULFATE 325 MG TAB PO SCH ×2 (08:53→17:00)
[2019-11-18] MEDS: SODIUM BICARBONATE 650 MG TAB PO SCH ×2 (08:53→17:00)
[2019-11-18] MEDS: ASCORBIC ACID 500 MG TAB PO SCH ×2 (08:53→17:00)
[2019-11-18] MEDS: GABAPENTIN 300 MG CAP PO SCH ×2 (08:53→17:00)
[2019-11-18] MEDS: FUROSEMIDE 40 MG TAB PO SCH (08:54)
[2019-11-18] MEDS: BALSAM PERU/CASTOR OIL 60 GM OINT...G. TP SCH (09:00)
[2019-11-18] MEDS: COLLAGENASE 5 GM TUBE TOP SCH (09:00)
--- NOTE | 2019-11-18 12:20 | NUR ---
PT WENT TO PROCEDURE IN SAFE CONDITION
--- NOTE | 2019-11-18 13:33 | Progress Note ---
DATE: SUBJECTIVE: The patient is in endoscopy today. She is undergoing an upper endoscopy. She has no fever. She was evaluated by Cardiology yesterday and felt not to be a candidate for any peripheral interventions. PHYSICAL EXAMINATION: VITAL SIGNS: The blood pressure is 129/86. Saturation is 95%. HEENT: Shows no facial swelling or erythema. CARDIAC: Reveals regular rate and rhythm with normal S1, S2. LUNGS: Auscultation of lungs shows clear breath sounds bilaterally. There is no wheezing. ABDOMEN: Soft, nontender. There is no rebound or guarding. EXTREMITIES: Show 2+ leg edema bilaterally. IMPRESSION: 1. Severe peripheral vascular disease with poorly healing leg wounds. 2. Cirrhosis secondary to hepatitis C. 3. Hepatic encephalopathy. 4. Chronic renal failure, stage 4. 5. Thrombocytopenia. 6. Anemia, unspecified. PLAN: 1. Await results of endoscopy. 2. Continue lactulose and Rifaximin. 3. Continue to monitor blood counts. 4. Complete antibiotics based on recommendations from Infectious Disease. Dalton Dill MD [facility]/MODL /[id number]
--- NOTE | 2019-11-18 14:10 | NUR ---
PATIENT BACK AFTER PROCEDURE PT IS ALERT AND ORIENTED ,VITALS CHECKED PT RESTING ON BED BED LOW AND LOCKED CALL LIGHT IN REACH
--- NOTE | 2019-11-18 14:30 | NUR ---
RETURNED THE CALL TO [facility] AND LEFT THE MESSAGE
--- NOTE | 2019-11-18 16:54 | Operative Report ---
DATE OF PROCEDURE: 11/18/2019 SURGEON: Joby Bueno MD PROCEDURE: EGD with fulguration of duodenal AVMs and biopsies. INDICATIONS FOR PROCEDURES: Anemia, blood in stools. MEDICATIONS: The patient was done under MAC, please see anesthesiologist's note. PROCEDURE IN DETAIL: With the patient in left lateral decubitus position, flexible fiberoptic Olympus gastroscope was introduced into the esophagus under direct visualization without any difficulty. Grade 1 esophageal varices were noted in the esophagus without active bleeding or stigmata of recent hemorrhage. The scope was then advanced with ease into the stomach. Mucosa overlying the antrum and the body revealed some patchy erythema and kdbb-og-llfygnez edema. Repeat revealed some patchy erythema and low-grade edema and biopsies were obtained and sent to stain for H pylori. Also, changes compatible with portal hypertensive gastropathy were noted. The pylorus was intubated with ease and the scope was advanced all the way to the second portion of the duodenum. ? AVMs were noted in the proximal second portion and duodenal bulb and those were fulgurated with a size 10-Wolof scope probe. The scope was then withdrawn back into the stomach and retroflexed and some portal hypertensive gastropathy changes were noted in the fundus and cardia appeared to be within normal limits. There were no fundal or cardiac varices. The scope was then straightened out, it was subsequently withdrawn, the patient tolerated the procedure well. IMPRESSION: 1. Grade 1 esophageal varices. 2. Portal hypertensive gastropathy. 3. Gastritis, biopsied, biopsies sent to stain for H pylori. 4. 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 PLAN: Follow up histology. Follow H and H. Initiate plans of followup Histology. Followup H and H. Continue PPI therapy. Joby Bueno MD [facility]/MODL /[id number] cc: Gray Knott MD
--- NOTE | 2019-11-18 18:41 | NUR ---
PT RESTING ON BED BED SIDE REPORT GIVEN TO ONCOMING NURSE
[2019-11-18] MEDS ORDERED: PROPOFOL IV EMULSION 10 MG/ML 20 ML VIAL ONE (19:11)
--- NOTE | 2019-11-18 19:20 | NUR ---
received report from day nurse. patient is resting in the bed. bed is in the lowest position and call light is within reach. will continue to monitor patient.
[2019-11-18] MEDS: MIRTAZAPINE 15 MG TAB PO SCH (20:26)
[2019-11-18] MEDS: TRAZODONE HCL 50 MG TAB PO PRN (20:26)
[2019-11-18] MEDS: ACETAMINOPHEN 325 MG TAB PO PRN ×2 (20:27→21:50)
[2019-11-18] MEDS ORDERED: MORPHINE SULFATE 2 MG/ML SYR 1ML IV STA (21:24)
--- NOTE | 2019-11-18 23:35 | Progress Note ---
DATE: 11/18/2019 SUBJECTIVE: The patient is lying supine in bed. She is moaning and appears to be in pwox-mq-nrzhoxpy distress with pain. She is noncommunicative. She makes eye contact. However, any time she is asked a question, there is no verbal response. MEDICATIONS: Reviewed. OBJECTIVE: VITAL SIGNS: Temperature 97.3, T-max 100.1, heart rate 84, blood pressure 105/64, respirations 20, and oxygen saturation 96%. Intake and output 480 mL in and 2350 mL out. GENERAL: The patient lying supine in bed, but attempting to sit up, she is able lift her back off the bed, in goll-pg-sxhmzfan distress. LUNGS: Clear to auscultation. Diminished bases. Respirations unlabored. Room air without supplemental oxygen. HEENT: EOMI. NECK: Supple. CARDIOVASCULAR: Regular rate and rhythm. No murmur. ABDOMEN: Positive bowel sounds. Soft. Suprapubic catheter with hematuria to dark avtar urine. EXTREMITIES: Severe 3+ pitting edema of the legs with multiple poorly healing wounds, unstageable sacral decubitus ulcer with a small amount of eschar. NEUROLOGICAL: GCS 9, eye 4, verbal 1, and motor 5. Nonfocal. LABORATORY DATA: On November 15, fecal occult blood test is positive. Urine culture collected on November 14. Preliminary results show Stenotrophomonas maltophilia and yeast species. Blood cultures x2 showing no growth after 72 hours. Right lower extremity wound culture preliminary results show Gram-negative rods, Staphylococcus aureus and enterococcus species, Coronavirus PCR collected today, negative. IMAGING STUDIES: KUB yesterday negative. DIAGNOSTIC PROCEDURES: The patient underwent EGD today per Gastroenterology notes. EGD showed grade 1 esophageal varices, gastropathy, portal hypertension, gastritis and duodenal AVMs, and she underwent AVM fulguration. ASSESSMENT AND PLAN: 1. Acute urinary tract infection with Stenotrophomonas maltophilia and yeast, POA - ID following, on Merrem. 2. Chronic kidney disease stage 4, estimated GFR 18 - Nephrology following, not on hemodialysis. Continue D5W with one amp of sodium bicarbonate at 50 mL an hour via peripheral IV per Nephrology. 3. Severe bilateral aortoiliac femoral peripheral arterial disease - bilateral lower extremity arterial Doppler ultrasound had shown significant arterial stenosis of all arteries in both lower extremities, although the patient was open to having the procedure in order to improve her severe PAD, if it would give her better quality of life, per mill dresser, she is not deemed to be a good candidate for peripheral vascular intervention. 4. Chronic bilateral lower extremity cellulitis/arterial ulcers due to PAD - wound care physician following. Continue half-strength Dakin solution for wound care. Preliminary right leg wound culture and sensitivity results show Gram-negative rods, Staphylococcus aureus and Enterococcus species. 5. Anemia with positive fecal occult blood test and hematuria; grade 1 esophageal varices, gastropathy, portal hypertension, gastritis and duodenal AVMs, status post esophagogastroduodenoscopy with AVM fulguration - appreciate recs from Gastroenterology. 1 unit of blood was given 11/15 for hemoglobin 8.1, recess hemoglobin in a.m. 6. Hepatitis C, cirrhosis with hepatic encephalopathy and thrombocytopenia. Intermittently confused last ammonia within normal limits and not currently on lactulose or rifaximin per PATTERN LAYOUT WORKER note. Speech attempted to see the patient for diet tolerance. However, the patient was having an ultrasound and PATTERN LAYOUT WORKER will follow up on 11/19. 7. Chronic obstructive pulmonary disease without exacerbation - Pulmonology following. Follow up chest x-ray results. 8. Hypothyroidism. Levothyroxine 100 mcg daily. Followup TSH should be ordered in approximately three months. 9. Anxiety/depression - continue Remeron and trazodone. 10. End of life. Palliative care following, DNR is in place. Advanced directive was completed 11/16. Collective decision makers are primary and alternate. 11. Prophylaxis - Pepcid. Time spent 35 minutes. Billing code [id number]. Dictated by Terrence Archibald NP MD TOBIN BerkowitzP/MODL /[id number]
[2019-11-19] VITALS (8 sets, daily range): BP systolic 84–124; BP diastolic 44–71
[2019-11-19] MEDS: LEVOTHYROXINE SODIUM 100 MCG TAB PO SCH (05:15)
[2019-11-19] MEDS: ACETAMINOPHEN/CODEINE 300MG - 30MG TAB PO PRN (05:30)
[2019-11-19 06:18] LABS: BASOPHILS % 0.5 % (0.0-1.0); EOSINOPHILS # (AUTO) 0.1 (0.0-0.4); EOSINOPHILS % 2.5 % (0.0-6.0); HEMATOCRIT 27.1 % (34.2-44.1); HEMOGLOBIN 8.2 g/dL (12.0-16.0); LYMPHOCYTES # (AUTO) 1.2 (1.0-3.2); LYMPHOCYTES % 27.2 % (18.0-39.1); MEAN CORPUSCULAR HEMOGLOBIN 29.1 pg (28-32); MEAN CORPUSCULAR HGB CONC 30.3 g/dL (31-35); MEAN CORPUSCULAR VOLUME 96.1 fL (81-99); MONOCYTES # (AUTO) 0.4 (0.2-0.8); MONOCYTES % 8.8 % (4.4-11.3); NEUTROPHILS # (AUTO) 2.7 (2.1-6.9); NEUTROPHILS % 60.5 % (38.7-80.0); PLATELET COUNT 86 x10e3/uL (140-360); RED BLOOD COUNT 2.82 x10e6/uL (3.6-5.1); RED CELL DISTRIBUTION WIDTH 16.2 % (11.7-14.4); RETICULOCYTE % 1.4 % (0.8-2.2)
--- NOTE | 2019-11-19 06:44 | NUR ---
PATIENT IS RESTING COMFORTABLY IN THE BED. NO DISTRESS NOTED. CALL NICE IS WITHIN REACH.
--- NOTE | 2019-11-19 07:00 | NUR ---
Received bedside shift report from off going nurse. Patient in stable condition, no distress noted. Pain voiced will give pain medication when available. Bed alarm applied and working. Bed in lowest position and locked. Call light within reach.
[2019-11-19 07:01] LABS: ALBUMIN/GLOBULIN RATIO 0.4 (0.8-2.0); ANION GAP 14.7 mmol/L (8-16); CALCIUM 8.7 mg/dL (8.4-10.2); CREATININE, SERUM 2.27 mg/dL (0.57-1.11); POTASSIUM 4.7 mmol/L (3.5-5.1)
[2019-11-19 07:21] LABS: FERRITIN 239.91 ng/mL (4.63-204.00)
[2019-11-19] MEDS: DOCUSATE SODIUM 100 MG CAP PO SCH (09:02)
[2019-11-19] MEDS: ASPIRIN 81 MG CHEW TAB PO SCH (09:02)
[2019-11-19] MEDS: GABAPENTIN 300 MG CAP PO SCH ×2 (09:02→16:17)
[2019-11-19] MEDS: ASCORBIC ACID 500 MG TAB PO SCH ×2 (09:02→16:17)
[2019-11-19] MEDS: SUCRALFATE 1 GM TAB PO SCH ×4 (09:02→20:09)
[2019-11-19] MEDS: FAMOTIDINE 20 MG/2 ML VIAL IV SCH ×2 (09:02→16:17)
[2019-11-19] MEDS: SODIUM BICARBONATE 650 MG TAB PO SCH ×2 (09:02→16:17)
[2019-11-19] MEDS: FUROSEMIDE 40 MG TAB PO SCH (09:02)
[2019-11-19] MEDS: FERROUS SULFATE 325 MG TAB PO SCH ×2 (09:02→16:17)
--- NOTE | 2019-11-19 09:45 | NUR ---
Notified Willam AGUIRRE with Dr. Black about lab results, the patient having MRSA of the wound and MDRO. Received no new orders.
[2019-11-19] MEDS: COLLAGENASE 5 GM TUBE TOP SCH (11:04)
[2019-11-19] MEDS: BALSAM PERU/CASTOR OIL 60 GM OINT...G. TP SCH (11:05)
[2019-11-19] MEDS: MEROPENEM 500MG/ NS 50ML 50 ML IV SCH ×2 (11:35→23:23)
[2019-11-19] MEDS ORDERED: MORPHINE SULFATE INJ 4 MG/ML INJ 1ML IV PRN (12:00)
[2019-11-19] MEDS ORDERED: MORPHINE SULFATE 2 MG/ML SYR 1ML IV PRN (12:30)
[2019-11-19] MEDS: IRON SUCROSE 100 MG in SODIUM CHLORIDE 0.9% 100 ML 100 ML IV SCH (13:39)
--- NOTE | 2019-11-19 15:58 | Progress Note ---
DATE: 11/19/2019 Nephrology Progress Note SUBJECTIVE: The patient is lying comfortably in bed. RN reports no shortness of breath or nausea. She is presently n.p.o. following an EGD. OBJECTIVE: VITAL SIGNS: Stable. Blood pressure 124/71, pulse 68 per minute. She is on room air oxygen. Intake and output record shows total of 2350 mL of output yesterday with 480 mL input. NECK: Without JVP. RESPIRATORY: Symmetrical breathing without any distress. ABDOMEN: Soft. Ascitic. EXTREMITIES: Chronic lower lobe nonpitting edema and cellulitis. NEUROLOGIC: She is awake and appears to be oriented to self. LABORATORY DATA: Reviewed. Hemoglobin 8.2, following 1 unit of packed red blood cell transfusion. Serum chemistries today show sodium of 147, potassium 4.7, chloride 116, carbon dioxide 21, BUN 69, creatinine 2.27, glucose 81, calcium 8.7. Transferrin saturation low at 9%, ferritin 239. Albumin 2. Vitamin B12 level okay. IMPRESSION: 1. Chronic kidney disease, stage 4, renal function remained stable. 2. Metabolic acidosis secondary to above. Stable carbon dioxide level on p.o. sodium bicarbonate tablets. 3. Hypernatremia, secondary to aggressive diuresis with Lasix. 4. Anemia secondary to chronic kidney disease. Based on the low transferrin saturation, may need iron replacement. RECOMMENDATIONS: 1. Hold Lasix until serum sodium normalizes. 2. Continue oral sodium bicarbonate. Agree with IV iron replacement. 3. Continue to monitor blood pressure on p.r.n. hydralazine. Diogenes Porras MD [facility]/MODL /[id number]
[2019-11-19] MEDS: LEVOFLOXACIN 250MG/D5W 50ML 50 ML IV SCH (16:17)
--- NOTE | 2019-11-19 18:27 | Progress Note ---
DATE: 11/19/2019 CONSULTING PHYSICIANS: 1. Dr. Black with Infectious Disease. 2. Dr. Dill with Pulmonology. 3. Dr. Hammond with Nephrology. 4. Dr. Herman with Wound Care. 5. Dr. Torres with Palliative Care. 6. Dr. Rinaldi with Cardiology. 7. Dr. Medina with Surgery. SUBJECTIVE: The patient is lying supine in bed. She says a few words, but generally noncommunicative. She was lucid yesterday morning, but is now confused again. OBJECTIVE: VITAL SIGNS: Temperature 99.9, T-max 100.1, heart rate 68, blood pressure 124/71, respirations 20, oxygen saturation 93%. Intake and output 120 mL in, 1700 mL out. GENERAL: The patient is lying supine in bed, awake, but confused. She is not combative, not attempting to get out of bed. LUNGS: Clear to auscultation. Diminished bases. Respirations unlabored, on room air without supplemental oxygen. HEENT: EOMI. NECK: Supple. CARDIOVASCULAR: Regular rate and rhythm. No murmur. ABDOMEN: Bowel sounds positive. Soft. Suprapubic catheter with yellow urine. EXTREMITIES: Severe 3+ pitting edema of the legs with multiple poorly healing wounds. INTEGUMENTARY: Leg wounds and unstageable sacral decubitus ulcer with a small amount of eschar. NEUROLOGICAL: GCS of 10, eye 4, verbal 2, motor 5, nonfocal. CURRENT MEDICATIONS: 1. Merrem 500 mg IV q.12 hours. 2. Ascorbic acid. 3. Ferrous sulphate. 4. Trazodone. 5. Levothyroxine. 6. Tylenol No. 3. 7. P.r.n. IV Zofran. 8. Aspirin. 9. Lasix 40 mg p.o. daily. 10. Mirtazapine. 11. Gabapentin. 12. Sodium hypochlorite. 13. Sodium bicarbonate. 14. Colace. 15. Sucralfate. 16. Pepcid. 17. P.r.n. Tylenol. LABORATORY DATA: Preliminary urine culture and sensitivity shows multidrug resistant organism, Stenotrophomonas maltophilia (resistant to Merrem) and yeast species. Final wound culture from the right leg collected on November 15 shows multidrug resistant organism, Acinetobacter baumannii of moderate colony count, multidrug resistant organism MRSA with few colony count and Enterococcus faecalis. WBC 4.41, hemoglobin 8.2, hematocrit 27.1, platelets 86. Sodium 147, potassium 4.7, chloride 116, CO2 21, BUN 69, creatinine 2.27, GFR 22, BUN and creatinine ratio of 30, glucose 81, calcium 8.7. Iron 19, TIBC 216, percent saturation 9, transferrin 154, ferritin 239.91, total bilirubin 1.6, AST 55, ALT 33, alkaline phosphatase 600, total protein 6.6, albumin 2.0, vitamin B12 1068. 11/17 coronavirus PCR not detected. Hepatitis panel pending. No new imaging studies. ASSESSMENT AND PLAN: 1. Urinary tract infection with multidrug resistant (resistant to Merrem), Stenotrophomonas maltophilia and yeast, POA-ID following, on Merrem. Case was discussed with Dr. Knott. We will add Levaquin 250 mg IV daily and Bactrim suspension 80 mg p.o. q.12 hours. 2. Chronic kidney disease stage 4, estimated GFR 22-Nephrology following, not on hemodialysis. Continue D5W with 1 amp of sodium bicarbonate 50 mL an hour via PIV. 3. Severe bilateral aortoiliac femoral peripheral arterial disease-bilateral lower extremity arterial Doppler ultrasound, had shown significant arterial stenosis of all arteries in both lower extremities. Per the division field inspector, the patient is not deemed to be a good candidate for peripheral vascular intervention. Dr. Medina with Surgery has been consulted for possible bilateral BKA. The patient was opened to having a procedure such as PCI by Cardiology in order to improve her severe PAD, if it would give her a better quality of life. She has altered mental status now and is unable to give consent for BKA, however, her POA, Vanesa, does not recall any conversation in which she was adamant that she did not want any amputation. Call was placed to alternative POA, Rae, left away a voice mail, awaiting call back. 4. Chronic bilateral lower extremity cellulitis/arterial ulcers due to PAD with wound culture and sensitivity positive for multidrug resistant organism, Acinetobacter baumannii, multidrug resistant organism, methicillin-resistant staphylococcus aureus and Enterococcus faecalis-wound care physician following as well as ID. Continue Merrem and half-strength Dakin solution for wound care. 5. Anemia with positive fecal occult blood test and hematuria; grade 1 esophageal varices, gastropathy, portal hypertension, gastritis and duodenal arteriovenous malformation, status post EGD with arteriovenous malformation fulguration-GI following, 1 PRBC given 11/15. Hemoglobin stable. Iron sucrose, Venofer daily x3 days, ordered. 6. Hepatitis C, cirrhosis with hepatic encephalopathy and thrombocytopenia-intermittently confused. Ammonia level 63 on 11/15 and within normal limits. Not currently on lactulose or rifaximin. GLASS MECHANIC to follow up on 11/19. 7. Chronic obstructive pulmonary disease without exacerbation-Pulmonology following. Follow chest x-ray results. 8. Hypothyroidism-levothyroxine 100 mcg daily. Followup TSH should be ordered in approximately 3 months. 9. Anxiety/depression-continue home dose of Remeron and trazodone. 10. End of life. Palliative Care following. DNR is in place. Advance directive was completed on 11/16. Collective decision makers are Vanesa Olvera #[phone] as primary and Rae Julio #[phone] as alternate. 11. Prophylaxis-Pepcid. Time spent 35 minutes. Billing code [id number]. Dictated by Terrence Archibald NP MD [facility] Berkowitz/KENAN /[id number]
--- NOTE | 2019-11-19 19:04 | NUR ---
Completed bedside shift report and rounding with oncoming nurse. Patient in stable condition, no s/s of distress noted. No pain voiced. Lower extremities wrapped with Kerlix dressing C/D/I. Telemetry applied and working. Bed alarm applied and working. Bed in lowest position and locked. Call light within reach. All personal belongings within reach.
--- NOTE | 2019-11-19 19:53 | Progress Note ---
DATE: SUBJECTIVE: The patient had an EGD yesterday that showed some gastric varices and an AVM that was cauterized. She has waxing and waning mental status. PHYSICAL EXAMINATION: VITAL SIGNS: The patient is afebrile. The vital signs are stable. Saturation is 92% on room air. HEENT: Shows no facial swelling or erythema. CARDIAC: Reveals regular rate and rhythm with normal S1 and S2. LUNGS: Auscultation of lungs reveals decreased breath sounds at the bases. There is no wheezing. ABDOMEN: Soft and nontender. There is no rebound or guarding. EXTREMITIES: Shows 3+ leg edema. There are poor healing wounds. IMPRESSION: 1. Qopfj-rz-edhfikc liver disease. 2. Hepatic encephalopathy. 3. Cirrhosis secondary to hepatitis C. 4. Severe peripheral vascular disease with poorly healing wounds. 5. Anemia. 6. Hypothyroidism. 7. History of rectus hematoma. PLAN: 1. The patient will be evaluated by Surgery for her leg wounds. 2. Continue antibiotics. 3. Continue current regimen for hepatic encephalopathy and cirrhosis. 4. Complete antibiotics. 5. Monitor blood counts. Dalton Dill MD [facility]/MODL /[id number]
[2019-11-19] MEDS: TRIMETHOPRIM/SULFAMETHOXAZOLE 40MG/5ML SUSP PO SCH (20:09)
[2019-11-19] MEDS: MIRTAZAPINE 15 MG TAB PO SCH (20:09)
[2019-11-19] MEDS ORDERED: SODIUM CHLORIDE 0.9% 250ML 250 ML ONE (23:19)
[2019-11-20] VITALS (8 sets, daily range): BP systolic 99–124; BP diastolic 50–74
--- NOTE | 2019-11-20 00:38 | Progress Note ---
DATE: 11/20/2019 Cardiology Progress Note SUBJECTIVE: No major events overnight. Remains confused. OBJECTIVE: VITAL SIGNS: Temperature is afebrile, pulse 71, respiratory rate 18, blood pressure 105/60, saturating 93% on nasal cannula. GENERAL: Middle-aged female, in no acute distress. CARDIOVASCULAR: Regular rate and rhythm. No murmurs, rubs, or gallops. LUNGS: Clear to auscultation. Decreased breath sounds in bilateral bases. ABDOMEN: Soft. Mildly tender. Nondistended. NEURO AND PSYCH: Disoriented. INPATIENT MEDICATIONS: Reviewed. LABORATORY DATA: Reviewed. TELEMETRY DATA: Reviewed, shows normal sinus rhythm. ASSESSMENT AND PLAN: 1. Hepatic encephalopathy. 2. Hep C cirrhosis. 3. Severe peripheral vascular disease, arterial and venous with chronic lower extremity nonhealing wounds. 4. Anemia. 5. Hypothyroidism. 6. History of rectus hematoma. PLAN: The patient is status post cauterization of AVM for GI yesterday. Stable from cardiovascular standpoint. No plans for peripheral angiography or intervention at this time, given her poor clinical status, not being a good candidate for anticoagulation in poor renal function. Thank you for this consult. We will continue to follow. MD ALVERTO Koch/KENAN /[id number]
--- NOTE | 2019-11-20 00:49 | Progress Note ---
DATE: 11/18/2019 Cardiology Progress Note SUBJECTIVE: No major events. Getting EEG done today. OBJECTIVE: VITAL SIGNS: Temperature afebrile, pulse 89, respiratory rate 18, blood pressure 110/60, saturating 95% on room air. GENERAL: Middle-aged female, in no acute distress. CARDIOVASCULAR: Regular rate and rhythm. No murmurs, rubs, or gallops. LUNGS: Decreased breath sounds in bilateral bases. ABDOMEN: Soft, mildly tender, nondistended. NEURO AND PSYCH: Alert and oriented to person, place, and time. Normal affect. INPATIENT MEDICATIONS: Reviewed. LABORATORY DATA: Reviewed. TELEMETRY DATA: Reviewed, shows normal sinus rhythm. ASSESSMENT AND PLAN: 1. Severe peripheral arterial disease with nonhealing wounds, bilateral lower extremities. 2. Hepatitis C cirrhosis. 3. Anemia, suspected gastrointestinal bleed. 4. Fobfh-cw-tuvbcaj kidney disease. 5. Hepatic encephalopathy. PLAN: The patient has severe peripheral arterial disease based on her arterial Dopplers. However, poor renal function for clinical condition and high risk for bleeding. She is not a good candidate for vascular intervention at this time. Continue management with wound care and possible amputation. Thank you for this consult. We will continue to follow. MD ALVERTO Koch/KENAN /[id number]
[2019-11-20] MEDS: LEVOTHYROXINE SODIUM 100 MCG TAB PO SCH (06:14)
--- NOTE | 2019-11-20 07:00 | NUR ---
BEDSIDE SHIFT REPORT RECEIVED FROM RAILROAD HAND RN [facility]. PT DENIES NEEDS AT THIS TIME/.
--- NOTE | 2019-11-20 07:16 | NUR ---
patient is resting comfortably in the bed. bed is in lowest position and call light is within reach.
[2019-11-20] MEDS: BALSAM PERU/CASTOR OIL 60 GM OINT...G. TP SCH (09:01)
[2019-11-20] MEDS: ASCORBIC ACID 500 MG TAB PO SCH ×2 (09:01→16:45)
[2019-11-20] MEDS: TRIMETHOPRIM/SULFAMETHOXAZOLE 40MG/5ML SUSP PO SCH ×2 (09:01→21:30)
[2019-11-20] MEDS: SODIUM BICARBONATE 650 MG TAB PO SCH ×2 (09:01→16:45)
[2019-11-20] MEDS: BISACODYL 10 MG SUPP PR SCH (09:01)
[2019-11-20] MEDS: FERROUS SULFATE 325 MG TAB PO SCH ×2 (09:01→16:45)
[2019-11-20] MEDS: ASPIRIN 81 MG CHEW TAB PO SCH (09:01)
[2019-11-20] MEDS: SUCRALFATE 1 GM TAB PO SCH ×4 (09:01→21:30)
[2019-11-20] MEDS: FAMOTIDINE 20 MG/2 ML VIAL IV SCH ×2 (09:01→16:45)
[2019-11-20] MEDS: GABAPENTIN 300 MG CAP PO SCH ×2 (09:01→16:45)
[2019-11-20] MEDS: COLLAGENASE 5 GM TUBE TOP SCH (09:01)
--- NOTE | 2019-11-20 09:50 | Progress Note ---
DATE: 11/20/2019 CONSULTING PHYSICIANS: 1. Dr. Black with Infectious Disease. 2. Dr. Dill with Pulmonology. 3. Dr. Hammond with Nephrology. 4. Dr. Herman with Wound Care. 5. Dr. Ramos with Palliative Care. 6. Dr. Rinaldi with Cardiology. 7. Dr. Medina with surgery. SUBJECTIVE: The patient is lying supine on her left side. She is more awake this morning. She is able answer questions, although has some pause when trying to think and formulate answers. However, she was able to carry on a conversation and is more lucid today than previous two days. No complaints of pain at present. OBJECTIVE: VITAL SIGNS: Temperature 98.2, T-max 99.3, heart rate 84, respirations 20, blood pressure 105/54, pulse oximetry 93% on room air. Intake and output; 572 mL in, 2100 mL out. No documentation of bowel movements since her stay. Staff was unsure when she last had a bowel movement. GENERAL: The patient is lying supine on her left side, awake, confused, but more alert than previous days. Not combative, not attempting to get out of bed, bed alarm set. LUNGS: Clear to auscultation throughout with diminished bases. Respirations unlabored on room air without supplemental oxygen. HEENT: EOMI. NECK: Supple. CARDIOVASCULAR: Regular rate and rhythm. No murmur. ABDOMEN: Bowel sounds positive. Soft. Suprapubic catheter with yellow urine. EXTREMITIES: Severe 3+ pitting edema of the legs with multiple poorly healing wounds. INTEGUMENTARY: Leg wounds as above. Unstageable sacral decubitus ulcer with a small amount of eschar. NEUROLOGICAL: GCS of 14, eye 4, verbal 4, motor 6. Nonfocal. MEDICATIONS: Reviewed. LABORATORY DATA: Lab holiday today. The alkaline phosphatase isoenzymes and acute hepatitis panel are pending. We will get a complete metabolic panel and CBC tomorrow. IMAGING: No new imaging today. ASSESSMENT AND PLAN: 1. Urinary tract infection with multi-drug resistant (resistant to Merrem) Stenotrophomonas maltophilia and yeast, POA-ID following. Levaquin 250 mg IV daily and Bactrim suspension 80 mg p.o. q.12 hours were added yesterday. 2. Chronic kidney disease, stage 4, estimated GFR 22-Nephrology following, not on hemodialysis. She was on sodium bicarbonate 1300 mg p.o. b.i.d. No longer on bicarb drip. 3. Severe bilateral aortoiliac femoral peripheral arterial disease-bilateral lower extremity arterial Doppler ultrasound had shown significant arterial stenosis of all arteries in both lower extremities. Per the mac developer, the patient is not a good candidate for peripheral vascular intervention. Dr. Medina with surgery has been consulted for possible bilateral below knee amputations as a palliative measure. The patient was open to having a procedure such as percutaneous Coronary Intervention by Cardiology in order to improve her severe peripheral arterial disease, if it would give her better quality of life when she was asked about this before. As she is more lucid today, I spoke with her about having the bilateral below knee amputations, and at this point, she was unsure, therefore we will continue with the consult with Dr. Medina and have him speak with her about it. I spoke with Vanesa and Rae, her POAs and they both agree with going ahead with below knee amputations as a palliative measure, if that is what the patient wants. They do not recall any conversation in which she was adamant that she did not want any amputation. 4. Chronic bilateral lower extremity cellulitis/arterial ulcers due to peripheral arterial disease with wound culture positive for MDRO, Acinetobacter baumannii, MDRO, MRSA, and Enterococcus faecalis-wound care physician following as well as ID. Continue Merrem IV antibiotic. Continue half-strength Dakin solution for wound care. 5. Anemia with positive FOBT and hematuria; grade 1 esophageal varices, gastropathy, portal hypertension, gastritis and duodenal arteriovenous malformation, status post EGD with arteriovenous malformation, fulguration-GI following, 1 PRBC given 11/15. Hemoglobin stable. Iron sucrose, Venofer daily x3 days with today being the 2nd day. 6. Hepatitis C, cirrhosis with hepatic encephalopathy, thrombocytopenia, elevated alkaline phosphatase-intermittently confused. Ammonia level 63 on 11/15, WNL. Not currently on lactulose or rifaximin. CHEESE SPECIALIST to follow up on 11/19. Alkaline phosphatase isoenzymes and acute hepatitis panel are pending. 7. Chronic obstructive pulmonary disease without exacerbation-Pulmonology following. Follow chest x-ray results. 8. Hypothyroidism-Levothyroxine 100 mcg daily. Followup TSH should be ordered in about 3 months. 9. Anxiety/depression-continue home dose of Remeron and trazodone. 10. End of life. Palliative Care following. DNR is in place. Advance directive was completed on 11/16. Collective decision makers are; Vanesa Olvera [phone] is primary, and Rae Julio [phone] is alternate. I spoke with the patient about possible bilateral below knee amputations at this point. She is unsure. She seems agreeable to hospice. We will allow Dr. Medina with Surgery to speak with her regarding possible bilateral below knee amputations before consulting hospice. 11. Prophylaxis-Pepcid. Time spent 35 minutes. Billing code [id number]. Dictated by Terrence Archibald NP MD TOBIN BerkowitzP/MODL /[id number]
--- NOTE | 2019-11-20 10:19 | NUR ---
ST NOTE: Attmepted to see pt for diet tolerance, pt quite fatigued and would not participate after tactile and verbal stimuli. Will follow up 11/21/19
[2019-11-20] MEDS: MEROPENEM 500MG/ NS 50ML 50 ML IV SCH (12:19)
[2019-11-20] MEDS: IRON SUCROSE 100 MG in SODIUM CHLORIDE 0.9% 100 ML 100 ML IV SCH (12:19)
--- NOTE | 2019-11-20 12:35 | Progress Note ---
DATE: REVIEW OF SYSTEMS: The patient is not talking September, but she responds that she is depressed, but she says the pain is controlled. Otherwise, no nausea, vomiting, fever, chills, chest pain, shortness of breath, nor new issues. PHYSICAL EXAMINATION: VITAL SIGNS: Temperature is 98.6, pulse is 78, respirations 18, and blood pressure 102/56. GENERAL: Alert and oriented. She is in the edge of the bed, seems depressed. CV: S1 and S2. CHEST: Equal expansion. Decreased breath sounds. No acute distress. ABDOMEN: Soft with positive bowel sounds and nontender. HEENT: Moist. No pallor. No JVD. EXTREMITIES: Multiple venous stasis ulcers all the way from the foot, the tip of the toes to the knees bilaterally with edema. Some of the wounds are necrotic. MEDICATIONS: Medication list reviewed and as far as Infectious Disease point of view, the patient is on meropenem and started on Bactrim by attending team. MICROBIOLOGY: Urine culture showed Stenotrophomonas, sensitive to Levaquin and Bactrim. Wound culture came back Acinetobacter, Staphylococcus aureus-MRSA and Enterococcus that is not VRE. LABORATORY STUDIES: No new CBC or BMP available. RADIOLOGY: No any radiology studies available. ASSESSMENT AND PLAN: 1. Sepsis, on admission. 2. Altered mental status, improved. 3. Multiple wounds with a history of MDR as mentioned above. 4. MDR urine culture. 5. Venous stasis, bilateral lower extremities. 6. Venous stasis ulcers of bilateral lower extremities, few with infection. 7. Severe peripheral arterial disease. 8. Hepatic cirrhosis. 9. Esophageal varices by EGD. 10. Portal hypertension. 11. Arteriovenous malformations of duodenum. 12. The patient remains on Merrem and as mentioned above, Bactrim was started by attending team yesterday. General Surgery is consulted for BKA. Discussed with Dr. Black. The patient may agree to hospice per attending physicians, nurse practitioner note. Overall, very poor prognosis. The patient was on hospice in the past, but she withdrew. Please refer to chart for more information. Dictated by Jules Miner PA-C (Al) Vilma Black MD /MODL /[id number]
--- NOTE | 2019-11-20 15:36 | Progress Note ---
DATE: 11/20/2019 Nephrology Progress Note SUBJECTIVE: The patient looks so much better today. Sitting up, calling her family. Denies any nausea or shortness of breath. OBJECTIVE: VITAL SIGNS: Stable. Blood pressure 102/56. She is afebrile. Excellent urine output. NECK: Supple without jugular venous distention. CHEST: Bilateral symmetrical air entry. No wheezing or undue effort. CARDIOVASCULAR: Shows regular rate and rhythm. ABDOMEN: Soft and nondistended. EXTREMITIES: Chronic lower leg cellulitis, unchanged. NEUROLOGICAL: Alert and oriented x3. LABORATORY DATA: No labs were drawn today. Last creatinine was 2.2, BUN 69 yesterday with stable electrolytes. IMPRESSION: 1. Chronic kidney disease stage 4, which remains stable. Nonuremic. 2. Anemia secondary to chronic kidney disease. Hemoglobin is stable. 3. Urinary tract infection with multidrug resistance, being treated through Infectious Disease is consultant. 4. Metabolic acidosis, controlled on oral sodium bicarbonate. 5. Continue current management. 6. Continue IV iron replacement for anemia. Lasix is on hold. We will check a serum sodium level and the rest of BMP tomorrow. 7. Treatment of urinary tract infection as per Infectious Disease is consultant. Diogenes Porras MD [facility]/MODL /[id number]
--- NOTE | 2019-11-20 15:44 | NUR ---
WENT AND SPOKE WITH PT ABOUT REFERRALS, SHE STATES SHE WILL MAKE UP HER MIND WHEN SHE SPOKE WITH DR SANDERS ABOUT THE POSSIBILITY OF AMPUTATION, WILL CONTINUE TO MONITOR.
[2019-11-20] MEDS: LEVOFLOXACIN 250MG/D5W 50ML 50 ML IV SCH (16:13)
[2019-11-20] MEDS ORDERED: ONDANSETRON HCL 4 MG ORAL DISINTEGRATING TAB PO PRN (17:00)
--- NOTE | 2019-11-20 18:00 | NUR ---
DR. SANDERS AT BEDSIDE TO LOOK AT PT'S LEGS BILATERAL. DRESSING CHANGED AT THIS TIME.
--- NOTE | 2019-11-20 19:37 | Consultation ---
DATE OF CONSULTATION: 11/20/2019 CHIEF COMPLAINT: Bilateral leg ulcers. HISTORY OF PRESENT ILLNESS: This patient is a 54-year-old female with chronic bilateral lower extremity ulceration secondary to severe peripheral vascular disease, not amenable to endovascular therapy. The patient also has chronic venous stasis edema and ulceration. Consultation is requested for possible amputation treatment given the nonhealing wound with continued risk for infection and challenging pain management issue. PAST MEDICAL HISTORY: Significant for liver cirrhosis with hepatic encephalopathy and portal hypertension, chronic renal insufficiency, stage IV decubitus ulcers along with peripheral and venous stasis disease. PAST SURGICAL HISTORY: Positive for urological surgery for ureteral obstruction, evacuation of rectus hematoma, and skin grafting. ALLERGIES: THE PATIENT IS ALLERGIC TO CEPHALOSPORIN. REVIEW OF SYSTEMS: Mild shortness of breath. No chest pain. Significant pain in the lower leg. PHYSICAL EXAMINATION: VITAL SIGNS: Stable, afebrile. GENERAL: She is awake, alert, in moderate discomfort. HEENT: Sclerae are nonicteric. NECK: Supple. LUNGS: Clear to auscultation with decreased base breath sounds. HEART: Regular rate and rhythm. ABDOMEN: Soft. EXTREMITIES: Reveal 2+ to 3+ edema up to the knee bilaterally with multiple ulcer at the heel and dorsum wound, which is open and granulating. There is evidence of skin erythema. Pulse not palpable bilaterally with tenderness to touch. Both legs are contracted at the knee level and ankle level. ASSESSMENT: Bilateral lower extremity open ulcer with mild cellulitis secondary to underlying severe peripheral vascular and venous stasis disease. Multiple comorbidities including chronic asthma, renal, and hepatic insufficiency. The patient recently assessed by palliative care and has temporarily withhold DNI/DNR status for surgical evaluation. PLAN: Discussed surgical therapy with the patient. The only meaningful surgical option would be bilateral above knee amputations, which has moderate chance of wound healing given her peripheral arterial insufficiency. Below-knee amputations would be contraindicated given the contracture at the knee resulting and scraping of the stumps on the bed resulting in wound dehiscence. We will discuss surgical option with the patient and power of attorneys. Thank you for consultation. Alvarado Medina MD [facility]/MODL /[id number]
--- NOTE | 2019-11-20 20:00 | NUR ---
Nursing report received from night nurse. Pt alert to name, right side lying in bed. No s/s of pain at this time. Gibson flowing with dark avtar urine. Call light within reach. Bed alarm on.
[2019-11-20] MEDS: MIRTAZAPINE 15 MG TAB PO SCH (21:30)
[2019-11-21] VITALS (8 sets, daily range): BP systolic 92–126; BP diastolic 48–80
[2019-11-21] MEDS: MEROPENEM 500MG/ NS 50ML 50 ML IV SCH ×2 (00:15→15:00)
[2019-11-21 05:36] LABS: BASOPHILS % 0.2 % (0.0-1.0); EOSINOPHILS # (AUTO) 0.2 (0.0-0.4); EOSINOPHILS % 4.2 % (0.0-6.0); HEMATOCRIT 27.3 % (34.2-44.1); HEMOGLOBIN 8.2 g/dL (12.0-16.0); MEAN CORPUSCULAR HEMOGLOBIN 29.1 pg (28-32); MEAN CORPUSCULAR VOLUME 96.8 fL (81-99); MONOCYTES # (AUTO) 0.4 (0.2-0.8); MONOCYTES % 8.3 % (4.4-11.3); NEUTROPHILS # (AUTO) 3.2 (2.1-6.9); NEUTROPHILS % 66.1 % (38.7-80.0); PLATELET COUNT 78 x10e3/uL (140-360); RED BLOOD COUNT 2.82 x10e6/uL (3.6-5.1); RED CELL DISTRIBUTION WIDTH 16.1 % (11.7-14.4)
[2019-11-21] MEDS: LEVOTHYROXINE SODIUM 100 MCG TAB PO SCH (05:46)
[2019-11-21 05:56] LABS: ALBUMIN 1.8 g/dL (3.5-5.0); ALBUMIN/GLOBULIN RATIO 0.4 (0.8-2.0); ANION GAP 11.4 mmol/L (8-16); CALCIUM 8.2 mg/dL (8.4-10.2); CREATININE, SERUM 2.13 mg/dL (0.57-1.11); POTASSIUM 4.4 mmol/L (3.5-5.1)
--- NOTE | 2019-11-21 07:05 | NUR ---
Received patient lying in bed with eyes open. Respiration even and unlabored without SOB. Call light in reach.
[2019-11-21] MEDS: SUCRALFATE 1 GM TAB PO SCH ×4 (10:01→21:00)
[2019-11-21] MEDS: BISACODYL 10 MG SUPP PR SCH (10:01)
[2019-11-21] MEDS: GABAPENTIN 300 MG CAP PO SCH (10:01)
[2019-11-21] MEDS: ASPIRIN 81 MG CHEW TAB PO SCH (10:01)
[2019-11-21] MEDS: FERROUS SULFATE 325 MG TAB PO SCH ×2 (10:01→15:29)
[2019-11-21] MEDS: TRIMETHOPRIM/SULFAMETHOXAZOLE 40MG/5ML SUSP PO SCH (10:01)
[2019-11-21] MEDS: FAMOTIDINE 20 MG/2 ML VIAL IV SCH ×2 (10:01→15:29)
[2019-11-21] MEDS: SODIUM BICARBONATE 650 MG TAB PO SCH ×2 (10:01→15:29)
[2019-11-21] MEDS: ASCORBIC ACID 500 MG TAB PO SCH ×2 (10:01→15:29)
--- NOTE | 2019-11-21 10:19 | Progress Note ---
DATE: Cardiology Progress Note SUBJECTIVE: No events. Sleeping comfortably. OBJECTIVE: VITAL SIGNS: Temperature is 98.7, heart rate is 86, respirations are 18, blood pressure is 126/80, and oxygen saturation 98% on room air. GENERAL: Chronically ill-appearing woman, in no apparent distress. CARDIOVASCULAR: Regular rate and rhythm. LUNGS: Clear to auscultation. ABDOMEN: Soft, nontender, nondistended. EXTREMITIES: Edematous. Multiple ulcers. TELEMETRY MONITORING: Reveals normal sinus rhythm. IMPRESSION: 1. Severe peripheral arterial disease with nonhealing wounds of bilateral lower extremities. 2. Hepatitis C cirrhosis. 3. Anemia. 4. Lbisd-bi-gephaqx kidney disease. 5. Hepatic encephalopathy. RECOMMENDATIONS: The patient does have severe peripheral arterial disease based on arterial Doppler. The patient has a poor clinical status and is not a good candidate for vascular intervention at this time. Continue wound management with wound care. Possible amputation is being contemplated. No further cardiac workup is required. Speedy Celaya DO [facility]/MODL /[id number]
[2019-11-21] MEDS ORDERED: LACTULOSE SYRUP 20 GM/30 ML UDC PO ONE ×2 (11:30→16:00)
[2019-11-21] MEDS: COLLAGENASE 5 GM TUBE TOP SCH (12:54)
[2019-11-21] MEDS: BALSAM PERU/CASTOR OIL 60 GM OINT...G. TP SCH (12:54)
--- NOTE | 2019-11-21 12:55 | Progress Note ---
DATE: SUBJECTIVE: The patient is seen and evaluated, and discussed with Dr. Black in details. REVIEW OF SYSTEMS: The patient is lethargic, wakes up barely and states that she is fine and goes back to sleep. Unable to obtain review of systems. PHYSICAL EXAMINATION: VITAL SIGNS: Temperature is 98.7, pulse is 86, respiration 18, and blood pressure 126/80. GENERAL: Lethargic in bed, overall ill-looking, weak. CV: S1 and S2. CHEST: Equal expansion. Decreased breath sounds. No acute distress. ABDOMEN: Soft and nontender. Positive bowel sounds. HEENT: Moist. No pallor. No JVD. EXTREMITIES: With edema 3+ with multiple wounds all the way to the knees on both sides. LABORATORY STUDIES: White count of 4.8, hemoglobin 8.2, and platelets 78. Sodium 144, potassium 4.4 with a creatinine level of 2.13. Serology; COVID-19 11/18/2019, not detected. Hep panel pending. MEDICATIONS: The patient is currently on Bactrim, Merrem, and Levaquin. MICROBIOLOGY: Wound culture showed Acinetobacter, MRSA and Enterococcus faecalis, not VRE. Acinetobacter is MDR, sensitive to Bactrim and Unasyn. Urine culture showed Stenotrophomonas, which is sensitive to Bactrim and Levaquin. ASSESSMENT AND PLAN: 1. Sepsis, on admission. 2. Altered mental status, improving, however, remains lethargic. 3. Multiple wounds with a history of MDR colonization. 4. MDR urine culture. 5. Venous stasis ulcer of bilateral lower extremities with infections. 6. Severe peripheral arterial disease. 7. Hepatic cirrhosis. 8. Multiple arteriovenous malformations of duodenum on EGD. 9. The patient is on Merrem, Bactrim, and Levaquin. 10. The patient is seen by General Surgery. The plan is for bilateral AKA. The patient has a platelet level of 78 and hemoglobin of 8.2 with chronic renal insufficiency. We will continue to monitor the patient clinically. Overall guarded prognosis. Discussed with Dr. Black in details. Please refer to chart for more information. Dictated by Jules Miner PA-C (Al) Vilma Black MD /MODL /[id number]
--- NOTE | 2019-11-21 14:54 | NUR ---
ST NOTE: Attempted to see pt for diet tolerance, pt quite fatigued and would not participate after tactile and verbal stimuli. Pt on puree texture diet and eating most of tray per nursing, awaiting double BKA. Will follow up 11/22/19 Handoff to SABINE Rothman
[2019-11-21] MEDS: IRON SUCROSE 100 MG in SODIUM CHLORIDE 0.9% 100 ML 100 ML IV SCH (15:29)
--- NOTE | 2019-11-21 15:46 | Progress Note ---
DATE: 11/21/2019 Nephrology Progress Note SUBJECTIVE: The patient is sitting up, eating lunch. Appears comfortable. Denies any nausea or shortness of breath. OBJECTIVE: VITAL SIGNS: Stable. Blood pressure 111/61, respiratory rate 16 per minute. She is afebrile. Oxygen saturation 94%. NECK: Supple without jugular venous distention. CHEST: Symmetrical breathing. No acute distress. CARDIOVASCULAR: S1, S2. ABDOMEN: Soft, nondistended. EXTREMITIES: Chronic inflammatory edema in both legs. HEENT: Normocephalic, atraumatic. No icterus. MEDICATIONS: Reviewed. LABORATORY DATA: White count 4.8, hemoglobin 8.2, platelet count 33411. Creatinine 2.13, BUN 59. Electrolytes normal. Calcium 8.2. Serum albumin 1.8. IMPRESSION: 1. Chronic kidney disease stage 4, staying stable. No uremic symptoms. 2. Anemia, secondary to chronic kidney disease. Stable hemoglobin. Receiving IV iron replacement. 3. Metabolic acidosis, controlled on oral sodium bicarbonate. 4. Urinary tract infection with multidrug resistant organisms, under treatment by Infectious Disease teamcenter consultant. Diogenes Porras MD [facility]/MODL /[id number]
[2019-11-21] MEDS: MORPHINE SULFATE 2 MG/ML SYR 1ML IV PRN (17:29)
--- NOTE | 2019-11-21 19:20 | NUR ---
Nursing report received from morning nurse. Pt alert to name, right side lying in bed. No s/s of pain at this time. Suprapubic flowing with dark avtar urine. Call light within reach. Bed alarm on.
--- NOTE | 2019-11-21 19:25 | NUR ---
Report given to maintenance technician 3rd shift. Respiration even and unlabored without SOB. Call light in reach.
[2019-11-21] MEDS: MIRTAZAPINE 15 MG TAB PO SCH (21:00)
[2019-11-22] VITALS (9 sets, daily range): BP systolic 99–130; BP diastolic 55–85
[2019-11-22] MEDS: MEROPENEM 500MG/ NS 50ML 50 ML IV SCH ×2 (00:12→12:03)
[2019-11-22] MEDS: MORPHINE SULFATE 2 MG/ML SYR 1ML IV PRN ×3 (00:15→21:57)
[2019-11-22] MEDS ORDERED: MORPHINE SULFATE 2 MG/ML SYR 1ML IV ONE (03:00)
--- NOTE | 2019-11-22 03:45 | NUR ---
Pt with increased pain-moaning, restlessness, and irritation. Pt stated pain BLE 10/100. Obtained x1 dose order Morphine 2mg from Dr. Nicanor Bueno.
[2019-11-22] MEDS: LEVOTHYROXINE SODIUM 100 MCG TAB PO SCH (06:00)
--- NOTE | 2019-11-22 06:30 | NUR ---
Patient refused blood draw from labs tech x2 attempts. Pt stated, "I said no". Unable to obtain blood for morning labs.
--- NOTE | 2019-11-22 06:39 | NUR ---
Judith DIAZ informed of Pt refusal of blood to be drawn. Also informed Pt has increased pain level, will f/u with pain medication regimen.
--- NOTE | 2019-11-22 07:03 | NUR ---
Received patient lying in bed with eyes open. Respiration even and unlabored without SOB. Call light in reach
[2019-11-22 08:29] LABS: BASOPHILS % 0.2 % (0.0-1.0); EOSINOPHILS # (AUTO) 0.2 (0.0-0.4); EOSINOPHILS % 4.2 % (0.0-6.0); HEMATOCRIT 26.9 % (34.2-44.1); LYMPHOCYTES # (AUTO) 1.4 (1.0-3.2); LYMPHOCYTES % 26.2 % (18.0-39.1); MEAN CORPUSCULAR HEMOGLOBIN 28.9 pg (28-32); MEAN CORPUSCULAR HGB CONC 29.7 g/dL (31-35); MEAN CORPUSCULAR VOLUME 97.1 fL (81-99); MONOCYTES # (AUTO) 0.6 (0.2-0.8); MONOCYTES % 10.5 % (4.4-11.3); NEUTROPHILS # (AUTO) 3.1 (2.1-6.9); NEUTROPHILS % 58.5 % (38.7-80.0); PLATELET COUNT 66 x10e3/uL (140-360); RED BLOOD COUNT 2.77 x10e6/uL (3.6-5.1); RED CELL DISTRIBUTION WIDTH 16.1 % (11.7-14.4)
[2019-11-22 08:49] LABS: ALBUMIN 1.8 g/dL (3.5-5.0); ALBUMIN/GLOBULIN RATIO 0.4 (0.8-2.0); ANION GAP 12.6 mmol/L (8-16); CALCIUM 8.5 mg/dL (8.4-10.2); CREATININE, SERUM 2.08 mg/dL (0.57-1.11); POTASSIUM 4.6 mmol/L (3.5-5.1)
[2019-11-22] MEDS: COLLAGENASE 5 GM TUBE TOP SCH (09:18)
[2019-11-22] MEDS: BISACODYL 10 MG SUPP PR SCH (09:18)
[2019-11-22] MEDS: SODIUM BICARBONATE 650 MG TAB PO SCH ×2 (09:18→17:49)
[2019-11-22] MEDS: ASCORBIC ACID 500 MG TAB PO SCH ×2 (09:18→17:49)
[2019-11-22] MEDS: BALSAM PERU/CASTOR OIL 60 GM OINT...G. TP SCH (09:18)
[2019-11-22] MEDS: FAMOTIDINE 20 MG/2 ML VIAL IV SCH ×2 (09:18→17:49)
[2019-11-22] MEDS: FERROUS SULFATE 325 MG TAB PO SCH ×2 (09:18→17:49)
[2019-11-22] MEDS: SUCRALFATE 1 GM TAB PO SCH ×4 (09:18→21:14)
[2019-11-22] MEDS: ASPIRIN 81 MG CHEW TAB PO SCH (09:18)
--- NOTE | 2019-11-22 11:49 | Progress Note ---
DATE: SUBJECTIVE: The patient is seen and evaluated. Available labs and notes reviewed and discussed with the attending team. Discussed with Dr. Black. REVIEW OF SYSTEMS: The patient is comfortable in bed. No specific complaint. Pain is controlled. No nausea, vomiting, fever, chills, chest pain, or shortness of breath. Appetite seems to be fair. PHYSICAL EXAMINATION: VITAL SIGNS: Temperature 97.5, pulse is 88, respiration 19, and blood pressure 99/59. GENERAL: Weak and lethargic. Appetite is fair. She ate some when I offered her breakfast, seems to be oriented, very pleasant. Pain seems to be controlled. No respiratory distress. CV: S1 and S2. CHEST: Equal expansion. Clear to auscultation. No acute distress. ABDOMEN: Soft and nontender. No distention. HEENT: Moist. No pallor. No JVD. She has some facial swelling since she was admitted, however, no significant change in that. EXTREMITIES: No obviously significant change. Remains with multiple wounds of bilateral lower extremities, which seem to be mostly venous congestion, ulcers with multiple ischemic necrotic areas. MEDICATIONS: Medication list reviewed and as far as Infectious Disease point of view, the patient is on Merrem. LABORATORY STUDIES: White blood cells 5.23, hemoglobin 8, and platelets 66. Sodium 143, potassium 4.6, and creatinine 2.08. Platelet dropped and creatinine improved slightly compare with yesterday. MICROBIOLOGY STUDIES: No new microbiology studies available. RADIOLOGY STUDIES: No new radiology studies available. ASSESSMENT AND PLAN: 1. Venous stasis, bilateral lower extremities. 2. Venous stasis ulcers of bilateral extremities with infection. 3. Cellulitis of bilateral lower extremities. 4. Thrombocytopenia. 5. Chronic renal insufficiency. 6. Chronic pain syndrome. 7. MDR urine. 8. MDR wounds. 9. Hepatic cirrhosis. 10. Severe debility. 11. Continue with meropenem at this point. Plan is for AKA tomorrow. However, platelet is lower today compared with yesterday. Creatinine is slightly improved compared with yesterday. Continue with the local care. Overall, the patient with poor prognosis. Discussed with Dr. Black in details. Please refer to chart for more information. Dictated by Jules Miner PA-C (Al) MD MENDEL Jesus/MEAGANL /[id number]
--- NOTE | 2019-11-22 11:59 | Progress Note ---
DATE: 11/22/2019 Nephrology Progress Note SUBJECTIVE: The patient continues to look comfortable, sitting up in bed. Denies any shortness of breath or nausea. OBJECTIVE: VITAL SIGNS: Stable. NECK: Supple without jugular venous distention. CHEST: Clear to auscultation. CARDIOVASCULAR: S1, S2. ABDOMEN: Soft, nondistended. EXTREMITIES: Chronic inflammatory edema in both legs. HEENT: Normocephalic, atraumatic. LABORATORY DATA: Hemoglobin 8, white count normal, platelet count 66,000. Creatinine down to 2.08 from 2.7 on admission. IMPRESSION: 1. Acute kidney injury, resolving. No uremic symptoms. 2. 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 3. Anemia secondary to chronic kidney disease and iron deficiency. Receiving IV iron supplementation here. 4. Metabolic acidosis, resolved. On oral sodium bicarbonate. 5. Urinary tract infection with multidrug resistant organism, treatment per Infectious Disease. Diogenes Porras MD [facility]/MODL /[id number]
--- NOTE | 2019-11-22 13:30 | Progress Note ---
DATE: SUBJECTIVE: The patient is planning for AKA tomorrow. She continues to complain of pain in her legs. She is weak. PHYSICAL EXAMINATION: VITAL SIGNS: The blood pressure is 104/70 and saturation is 98%. The patient is afebrile. HEENT: Shows no facial swelling or erythema. CARDIAC: Reveals regular rate and rhythm with normal S1 and S2. LUNGS: Auscultation of lungs reveals decreased breath sounds at the bases. There is no wheezing. ABDOMEN: Soft and nontender. There is no rebound or guarding. EXTREMITIES: There is 3 to 4+ leg edema. There are peripheral ulcerations. LABORATORY DATA: White blood cell count is 5.2 and the hemoglobin is 8. The platelet count is 66. The BUN to creatinine ratio is 50 to 2.08. The other electrolytes are within normal limits. Albumin is 1.8. IMPRESSION: 1. Severe peripheral vascular disease with recurrent ulcerations. 2. Chronic venous stasis ulcers. 3. Hepatitis C. 4. Cirrhosis. 5. Chronic renal failure, stage 3. 6. History of rectus hematoma. PLAN: 1. Possible AKA tomorrow. 2. Continue wound care and antibiotics. 3. Continue current regimen for cirrhosis. 4. Continue to monitor blood count. MD LIBAN Lake/KENAN /[id number]
--- NOTE | 2019-11-22 16:07 | NUR ---
Nutrition Intervention Note RD Recommendation(s) for Physician: -Continue current diet and consistency per MANAGER ANIMAL -Damien BID to promote wound healing -Recommend multivitamin, zinc, and vitamin C for wound healing Plan of Care: RD following, monitoring for tolerance and adequacy Nutrition reason for involvement: follow up RD Assessment: (11/21) Follow up. Pt is awaiting bilateral AKA. Pt reports she is eating well. According to MANAGER ANIMAL note yesterday, pt is eating most of her meal tray per nursing. No N/V/D/C noted. Pt reports she is tolerating diet. Pt also mentioned she is consuming some of the Damien supplements that were ordered. Will continue to monitor. (11/15) Pt is a 54 year old female admitted with altered mental status, cellulitis, gangrene, and UTI. MANAGER ANIMAL evaluated pt today and recommended a mechanical soft/chopped diet. Pt stated she usually eats all of her meals. Pt reports no weight loss but was unsure of her usual weight. Per weight history in chart, pt had weighed 170-180 lbs from previous admission in October. Pt currently has a weight of 152 lbs in chart. Suspect possible weight error. Per wound care note, pt has an unstageable sacrogluteal ulcer. Recommend Damien BID to promote wound healing. Informed RN of recommendation. Will continue to monitor. Principal Problems/Diagnoses: altered mental status, cellulitis, gangrene, and UTI PMH: decubitus ulcers, chronic renal failure stage 4, cirrhosis, thrombocytopenia, chronic leg edema and venous stasis GI: non-tender, soft, round abdomen, last recorded BM 11/20 Skin: bilateral generalized necrotic lower extremities, unstageable right sacro gluteal ulceration per wound care note on 11/16 Labs: (11/21) BUN 50, Cr 2.08 (11/15) BUN 76, Cr 2.47, Glu 127, Ca 8. Meds: carafate, meropenem, dulcolax, derrous sulfate, pepcid, vitamin C, zofran Ht: 62 inches Wt: 141 lbs (11/21) 152 lbs (11/14) Suspect possible weight error BMI: 25.8 kg/m2 IBW: 110 lbs Malnutrition Evaluation (11/16/19) The patient does not meet criteria for a specified degree of malnutrition at this time. Will re-evaluate at follow-up as appropriate. Nutrition Prescription (Diet Order): cardiac/pureed diet, Damien Estimated Nutritional Needs: 1154 1282 calories/day (18-20 kcal/kg CBW) 77-96 g protein/day (1.2-1.5 g pro/kg CBW) Diet Adequacy: Meeting calorie needs, Meeting protein needs Tolerance: Tolerating PO Diet Education Needs Assessment: RD is available for diet education as needed Nutrition Care Level: low Nutrition Diagnosis: Increased nutrient needs related to increased demand for protein as evidenced by unstageable sacrogluteal ulcer Goal: Patient will meet 75-100% of estimated needs by follow up Progress: progressing Interventions: - fat/cholesterol/sodium and texture- modified diet, Commercial beverage, Multivitamin/mineral supplement therapy Monitoring/Evaluation: -Total energy intake, Total protein intake, Modified diet, Liquid supplement, Weight change Signed: Caroline Villasenor RD, LD
[2019-11-22 16:08] LABS: INR 1.18; PROTHROMBIN TIME 15.8 seconds (11.9-14.5)
--- NOTE | 2019-11-22 19:15 | NUR ---
Report given to shift production associate. Respiration even and unlabored without SOB. Call light in reach.
[2019-11-22] MEDS: MIRTAZAPINE 15 MG TAB PO SCH (21:14)
--- NOTE | 2019-11-22 21:21 | NUR ---
patient seen moaning and grinding teeth, attempted to push IV medication into right lower forearm IV patient c/o pain and discomfort, MD notified, patient refusing new IV insertion
--- NOTE | 2019-11-22 21:28 | NUR ---
called MD Knott, JOE ocampo covering answered the phone, advised that patient need IV access, and she is pending BKA surgery in the morning, and she is pulling her arm away from me not allowing me to attempt to place another IV, per JOE Ocampo "contact sales warehouse driver and see if they can come and put a peripheral IV in if okay with patient" "If peripheral IV unsuccessful then get someone from ER to insert IJ" advised JOE Ocampo that patient has POA will contact and ask patient is okay to do another peripheral IV or insert IJ if okay with POA
[2019-11-22] MEDS: TRAZODONE HCL 50 MG TAB PO PRN (21:58)
[2019-11-23] VITALS (12 sets, daily range): BP systolic 84–142; BP diastolic 43–90
[2019-11-23] MEDS: MEROPENEM 500MG/ NS 50ML 50 ML IV SCH ×2 (00:38→12:15)
[2019-11-23] MEDS: MORPHINE SULFATE 2 MG/ML SYR 1ML IV PRN ×2 (03:00→09:49)
[2019-11-23] MEDS: LEVOTHYROXINE SODIUM 100 MCG TAB PO SCH (05:15)
[2019-11-23 07:23] LABS: BASOPHILS % 0.5 % (0.0-1.0); EOSINOPHILS # (AUTO) 0.2 (0.0-0.4); EOSINOPHILS % 4.8 % (0.0-6.0); HEMATOCRIT 30.1 % (34.2-44.1); HEMOGLOBIN 8.9 g/dL (12.0-16.0); LYMPHOCYTES # (AUTO) 1.1 (1.0-3.2); MEAN CORPUSCULAR HEMOGLOBIN 28.6 pg (28-32); MEAN CORPUSCULAR HGB CONC 29.6 g/dL (31-35); MEAN CORPUSCULAR VOLUME 96.8 fL (81-99); MONOCYTES # (AUTO) 0.5 (0.2-0.8); MONOCYTES % 10.7 % (4.4-11.3); NEUTROPHILS # (AUTO) 2.4 (2.1-6.9); NEUTROPHILS % 57.5 % (38.7-80.0); PLATELET COUNT 74 x10e3/uL (140-360); RED BLOOD COUNT 3.11 x10e6/uL (3.6-5.1); RED CELL DISTRIBUTION WIDTH 16.3 % (11.7-14.4)
[2019-11-23] MEDS: SUCRALFATE 1 GM TAB PO SCH ×4 (07:30→21:00)
[2019-11-23 07:42] LABS: ALBUMIN/GLOBULIN RATIO 0.5 (0.8-2.0); ANION GAP 12.8 mmol/L (8-16); CALCIUM 8.8 mg/dL (8.4-10.2); CREATININE, SERUM 1.99 mg/dL (0.57-1.11); MAGNESIUM 1.9 MG/DL (1.3-2.1); POTASSIUM 4.8 mmol/L (3.5-5.1)
--- NOTE | 2019-11-23 07:43 | NUR ---
BSSR GIVEN TO SHALA REGALADO, INFORMED OF PROCEDURES TODAY, CONSENT IN CHART, PATIENT CONTINUES TO REFUSE CARE, REFUSE LABS, CAPTAIN'S ASSISTANT ON FLOOR AT END OF SHIFT TO ATTEMPT 3RD TIMES TO OBTAIN AM LABS, PATIENT AWAKE, NONCOMPLAINT, AOX2, APHASIC AT TIMES CALL LIGHT WITHIN REACH, BED ALARM ACTIVATED
[2019-11-23] MEDS: SODIUM BICARBONATE 650 MG TAB PO SCH ×2 (09:00→17:00)
[2019-11-23] MEDS: ASCORBIC ACID 500 MG TAB PO SCH ×2 (09:00→17:00)
[2019-11-23] MEDS: ASPIRIN 81 MG CHEW TAB PO SCH (09:00)
[2019-11-23] MEDS: FERROUS SULFATE 325 MG TAB PO SCH ×2 (09:00→17:00)
[2019-11-23] MEDS: BISACODYL 10 MG SUPP PR SCH (09:00)
[2019-11-23] MEDS: FAMOTIDINE 20 MG/2 ML VIAL IV SCH ×2 (09:00→17:47)
[2019-11-23] MEDS: COLLAGENASE 5 GM TUBE TOP SCH (10:00)
[2019-11-23] MEDS: BALSAM PERU/CASTOR OIL 60 GM OINT...G. TP SCH (10:00)
[2019-11-23 10:15] LABS: ANISOCYTOSIS SLIGHT; HYPOCHROMASIA SLIGHT; PLATELET ESTIMATE ADEQUATE; PLATELET MORPHOLOGY COMMENT NORMAL; RBC MORPHOLOGY COMMENT NORMAL
--- NOTE | 2019-11-23 11:28 | Progress Note ---
DATE: SUBJECTIVE: The patient is seen and evaluated. Available labs and notes reviewed. Discussed with the attending team. REVIEW OF SYSTEMS: Overall, no complaints that is new. Remains with bilateral lower extremity pains and lethargic and poor appetite, but the patient states that she is doing fine, seems to be confused a little bit. Overall, very guarded prognosis, but no acute distress at this point. PHYSICAL EXAMINATION: VITAL SIGNS: Temperature is 97.2, pulse is 59, respirations 17, blood pressure is 142/90 with a recheck temperature is 97.7, pulse of 99, and respiration of 20. GENERAL: Comfortable, lethargic, slightly confused, weak, in bed, cannot remember whom she was going to call. Overall seems to be fair and in no acute distress. CV: S1 and S2. CHEST: Equal expansion. Clear to auscultation. No acute distress. ABDOMEN: Soft. Positive bowel sounds and nontender. HEENT: Moist. Some facial swelling on this admission and may be slightly improved today. EXTREMITIES: Chronic venous stasis ulcers with infection and some spots are necrotic with 2 to 3+ edema. Wounds are dressed on local care. MEDICATIONS: Medication list reviewed and as far as Infectious Disease point of view, the patient is on Merrem. All other antibiotics were stopped couple days ago, as the wounds are superficial and not deep, but, however, they are necrotic and the patient is most likely colonized with all of these different bacteria. LABORATORY STUDIES: White counts of 4.2, hemoglobin of 8.9, and platelets 74. Sodium is 142, potassium 4.8, and creatinine 1.99, gradually improving creatinine level. MICROBIOLOGY: No new microbiology studies available. RADIOLOGY: No new radiology. ASSESSMENT AND PLAN: 1. Venous stasis of bilateral lower extremities. 2. Venous stasis ulcers of bilateral extremities with infection. 3. Cellulitis of bilateral lower extremities. 4. 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 5. Chronic renal insufficiency-creatinine is improving. 6. Chronic pain syndrome. Pain seems to be controlled. 7. Severe debility. The patient is mostly bedbound, hepatic cirrhosis. 8. Continue with meropenem at this time. Continue with local care. The patient is scheduled for bilateral AKA today. Overall with guarded prognosis. We will continue to monitor the patient clinically and follow with the labs. Discussed with Dr. Black in details. Dictated by Jules Miner PA-C (Al) MD MENDEL Jesus/KENAN /[id number]
--- NOTE | 2019-11-23 12:00 | NUR ---
pt off unit for procedure.
--- NOTE | 2019-11-23 13:29 | Progress Note ---
DATE: 11/23/2019 Nephrology Followup Progress Note SUBJECTIVE: The patient continues to be comfortable. Sitting up in bed. Denies any nausea, vomiting, or shortness of breath. OBJECTIVE: VITAL SIGNS: Blood pressure 142/90, afebrile. Oxygen saturation normal on room air. NECK: Supple without jugular venous distention. CHEST: Bilateral air entry without wheezing. CARDIOVASCULAR: Shows normal S1, S2. ABDOMEN: Soft, nondistended. EXTREMITIES: Chronic inflammatory edema in both legs. NEUROLOGICAL: Alert and oriented x3. LABORATORY DATA: Hemoglobin 8.9. Electrolytes normal. Creatinine lower at 1.9, BUN 46, calcium 8.8, magnesium 1.9. Albumin 2. IMPRESSION AND PLAN: 1. Acute kidney injury, continuing slow resolution. No uremic symptoms. 2. 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 Continue to monitor. 3. Anemia secondary to chronic kidney disease and iron deficiency, status post IV iron replacement. 4. Metabolic acidosis, controlled on sodium bicarbonate. Continue same. 5. Multidrug-resistant urinary tract infection, on IV meropenem per ID. Diogenes Porras MD [facility]/MODL /[id number]
[2019-11-23] MEDS ORDERED: SEVOFLURANE INHAL SOLN 250 ML PEN BTL ONE (14:43)
[2019-11-23] MEDS ORDERED: ROCURONIUM BROMIDE 10 MG/ML 5ML VIAL IV ONE (14:43)
[2019-11-23] MEDS ORDERED: LIDOCAINE HCL 2% LOCAL INJ 5 ML SDV VIAL INJ ONE (14:43)
[2019-11-23] MEDS ORDERED: NEOSTIGMINE 1 MG/ML 10ML VIAL ONE (14:43)
[2019-11-23] MEDS ORDERED: EPHEDRINE SULFATE INJ 50 MG/ML VIAL ONE (14:43)
[2019-11-23] MEDS ORDERED: ONDANSETRON HCL INJ 2MG/ML 2ML 2 MG/ML VIAL ONE (14:43)
[2019-11-23] MEDS ORDERED: GLYCOPYRROLATE INJ 0.2 MG/ML VIAL ONE (14:43)
[2019-11-23] MEDS ORDERED: PHENYLEPHRINE HCL 1% 10 MG/ML VIAL ONE (14:43)
[2019-11-23] MEDS ORDERED: PROPOFOL IV EMULSION 10 MG/ML 20 ML VIAL ONE (14:43)
--- NOTE | 2019-11-23 17:10 | Progress Note ---
DATE: SUBJECTIVE: The patient went to the operating room for AKA. PHYSICAL EXAMINATION: VITAL SIGNS: The patient is afebrile. The vital signs are stable. HEENT: No facial swelling or erythema. CARDIAC: Regular rate and rhythm with normal S1 and S2. LUNGS: Auscultation of the lungs reveals no rhonchorous breath sounds bilaterally. There is no wheezing. ABDOMEN: Soft, nontender. There is no rebound or guarding. IMPRESSION: 1. Hepatitis C and cirrhosis. 2. Chronic renal failure stage 3. 3. Severe peripheral vascular disease. 4. History of rectus hematoma. 5. Moderate protein-calorie malnutrition. 6. Hypoalbuminemia. PLAN: 1. The patient to have AKA today. 2. Continue current regimen for cirrhosis. 3. Complete current antibiotics. MD LIBAN Lake/MEAGANL /[id number]
[2019-11-23 19:43] LABS: HEMOGLOBIN 8.5 g/dL (12.0-16.0)
[2019-11-23] MEDS ORDERED: MEPERIDINE HCL/PF 25 MG/0.5 ML AMP IV PRN (20:15)
[2019-11-23] MEDS: MIRTAZAPINE 15 MG TAB PO SCH (21:00)
[2019-11-23] MEDS: MEPERIDINE HCL INJ 25 MG/ML VIAL IV PRN (22:40)
[2019-11-24] VITALS (25 sets, daily range): BP systolic 92–138; BP diastolic 49–99
[2019-11-24] MEDS: MEROPENEM 500MG/ NS 50ML 50 ML IV SCH ×3 (00:26→23:40)
[2019-11-24] MEDS: MEPERIDINE HCL INJ 25 MG/ML VIAL IV PRN ×3 (02:50→13:30)
--- NOTE | 2019-11-24 04:21 | Operative Report ---
DATE OF PROCEDURE: 11/23/2019 SURGEON: Alvarado Medina MD PREOPERATIVE DIAGNOSIS: Ischemic and non-healing open wound of the lower extremity. POSTOPERATIVE DIAGNOSIS: Ischemic and non-healing open wound of the lower extremity. OPERATIVE PROCEDURE: Left above-knee amputation. ANESTHESIA: General. INDICATIONS FOR SURGERY: This patient is a 54-year-old female with history of peripheral vascular disease and venous stasis disease with chronic ulceration and non-healing wound in the lower extremity bilaterally. The patient has consented for bilateral above-knee amputation for control of sepsis and for pain management. Attendant risks and benefits have been discussed. The patient has agreed to do one leg at a time in order to ensure adequate healing and minimize stress to the system as the patient has comorbidities of hepatic and renal insufficiency. DESCRIPTION OF PROCEDURE: The patient was brought to OR and intubated. The left extremity was prepped with Betadine and draped in sterile fashion. A fishmouth incision was made approximately one handbreadth above the left knee cap with equal length of anterior and posterior flap. The anterolateral aspect of the incision was carried with cautery down to the femur, dividing the fascia and muscle at the level of the skin incisions. Dissection was then carried out medially using cautery with hemostasis controlled with suture ligature of 2-0 Vicryl. In this fashion, the anterior aspect of the femur was exposed and the periosteum was incised with the Bovie. We then created a posterior flap at the same distal level as the anterior incisions and the fascia and hamstring muscles also divided with cautery down to the posterior aspect of the femur. The femoral artery and vein were encountered and individually clamped and suture ligated with 2-0 silk stitches. The sciatic nerve was also identified and ligated with 2-0 Vicryl under traction and the stump allowed to retract. We proceeded to strip the periosteum of the femur approximately 5 cm above the level of skin incisions and using Gigli saw, the femur was divided perpendicularly. Grasper was used to smoothen edge of the femur. Hemostasis achieved with cautery. The leg was removed from the patient's and the wound irrigated. We proceeded to approximate the anterior to the posterior fascia with interrupted 2-0 Vicryl stitch. The skin was closed with 2-0 nylon vertical mattress stitches. A round 15-Lux[place]bourgish DOMINICK drain has been placed in the depth of the wound and taken out through a separate stab incision laterally. Dressing applied. The patient tolerated the procedure well and extubated and transported to recovery room. Blood loss was 200 mL. MD ART Avery/KENAN /[id number]
[2019-11-24 05:17] LABS: BASOPHILS % 0.8 % (0.0-1.0); EOSINOPHILS # (AUTO) 0.1 (0.0-0.4); EOSINOPHILS % 2.3 % (0.0-6.0); HEMATOCRIT 28.4 % (34.2-44.1); HEMOGLOBIN 8.2 g/dL (12.0-16.0); LYMPHOCYTES # (AUTO) 0.8 (1.0-3.2); LYMPHOCYTES % 20.2 % (18.0-39.1); MEAN CORPUSCULAR HEMOGLOBIN 28.8 pg (28-32); MEAN CORPUSCULAR HGB CONC 28.9 g/dL (31-35); MEAN CORPUSCULAR VOLUME 99.6 fL (81-99); MONOCYTES # (AUTO) 0.4 (0.2-0.8); MONOCYTES % 9.9 % (4.4-11.3); NEUTROPHILS # (AUTO) 2.6 (2.1-6.9); NEUTROPHILS % 66.5 % (38.7-80.0); PLATELET COUNT 54 x10e3/uL (140-360); RED BLOOD COUNT 2.85 x10e6/uL (3.6-5.1); RED CELL DISTRIBUTION WIDTH 17.2 % (11.7-14.4)
--- NOTE | 2019-11-24 05:30 | NUR ---
Attempted to give pt AM med x 2. Pt refused oral care, water, and to take AM meds.
[2019-11-24 05:39] LABS: ALBUMIN 1.7 g/dL (3.5-5.0); ALBUMIN/GLOBULIN RATIO 0.5 (0.8-2.0); ANION GAP 11.9 mmol/L (8-16); CREATININE, SERUM 1.86 mg/dL (0.57-1.11); MAGNESIUM 1.8 MG/DL (1.3-2.1); POTASSIUM 4.9 mmol/L (3.5-5.1)
[2019-11-24] MEDS: LEVOTHYROXINE SODIUM 100 MCG TAB PO SCH (06:00)
[2019-11-24 07:36] LABS: ANISOCYTOSIS AL; HYPOCHROMASIA SLIGHT; PLATELET ESTIMATE MARKEDLY DECREASED; PLATELET MORPHOLOGY COMMENT NORMAL; RBC MORPHOLOGY COMMENT NORMAL
[2019-11-24] MEDS: SUCRALFATE 1 GM TAB PO SCH ×4 (07:58→21:03)
--- NOTE | 2019-11-24 08:40 | NUR ---
Holding PT services since patient is moved to higher level of care ( from room 208 to ICU) after surgery. Will need new PT orders when appropriate. Thank you Addendum: 11/24/19 at 0841 by Agustín olson PT Amended: Links added.
[2019-11-24] MEDS: ASPIRIN 81 MG CHEW TAB PO SCH (08:47)
[2019-11-24] MEDS: FERROUS SULFATE 325 MG TAB PO SCH ×2 (08:47→17:34)
[2019-11-24] MEDS: FAMOTIDINE 20 MG/2 ML VIAL IV SCH ×2 (08:47→17:34)
[2019-11-24] MEDS: SODIUM BICARBONATE 650 MG TAB PO SCH ×2 (08:47→17:34)
[2019-11-24] MEDS: ASCORBIC ACID 500 MG TAB PO SCH ×2 (08:47→17:34)
[2019-11-24] MEDS: BISACODYL 10 MG SUPP PR SCH (09:32)
[2019-11-24] MEDS: COLLAGENASE 5 GM TUBE TOP SCH (09:33)
[2019-11-24] MEDS: BALSAM PERU/CASTOR OIL 60 GM OINT...G. TP SCH (09:33)
--- NOTE | 2019-11-24 11:42 | Progress Note ---
DATE: SUBJECTIVE: The patient went for AKA yesterday. She is now in the intensive care unit. She is hemodynamically stable. She is slightly more confused. PHYSICAL EXAMINATION: VITAL SIGNS: The patient is afebrile. The blood pressure is 112/72 and saturation is 99%. HEENT: Shows no facial swelling or erythema. CARDIAC: Reveals regular rate and rhythm with normal S1, S2. There are no murmurs or rubs heard. LUNGS: Auscultation of lungs shows decreased breath sounds at the bases. There is no wheezing. ABDOMEN: Soft, nontender. There is no rebound or guarding. EXTREMITIES: Shows show 1+ leg edema. There is also a new AKA. LABORATORY DATA: BUN to creatinine ratio is 42 to 1.86 and the other electrolytes within normal limits. Albumin is 1.7. Hemoglobin is 8.2, and platelet count is 54. IMPRESSION: 1. Recent aflun-evp-oash amputation. 2. Severe peripheral vascular disease with poorly healing leg wounds. 3. Chronic venous stasis and lymphedema. 4. Cirrhosis and hepatitis C. 5. Moderate protein-calorie malnutrition. 6. Metabolic encephalopathy. PLAN: 1. Continue wound care. 2. Continue current treatment for cirrhosis. 3. Continue current antibiotics. 4. Re-evaluation by Speech Therapy. 5. Re-evaluation by Physical Therapy. Dalton Dill MD [facility]/MODL /[id number]
--- NOTE | 2019-11-24 12:48 | Progress Note ---
DATE: SUBJECTIVE: The patient is seen and evaluated. The patient is currently in ICU post left AKA. REVIEW OF SYSTEMS: The patient opened eyes and responded that she is doing okay, but overall pretty much that is it, not much of verbal interaction, but seems to be comfortable. PHYSICAL EXAMINATION: VITAL SIGNS: Temperature is 99, pulse is 97, respirations 17, blood pressure 112/72. GENERAL: Comfortable in bed. No acute distress, weak. CV: S1, S2. CHEST: Equal expansion. Clear to auscultation. No acute distress. ABDOMEN: Soft and nontender. HEENT: Moist. No pallor. No JVD. Facial swelling has gone down. EXTREMITIES: Status post left AKA with DOMINICK drain noted. Right lower extremity wounds on local care. MEDICATIONS: Medication list reviewed. As far as Infectious Disease point of view she is on Merrem. LABORATORY STUDIES: White count of 3.92, hemoglobin 8.2, platelets 54. Sodium 144, potassium 4.9, creatinine 1.86. AST is slightly higher than yesterday at 58 with alkaline phosphatase of 451 improved from yesterday at 611. AST is 29, which is within limit. Total protein is 5.4, albumin is 1.7. Serology; coronavirus PCR on 11/18/2019, not detected. Hepatitis panel for hepatitis A and B negative with hep C antibody of 10.8. MICROBIOLOGY: No new microbiology studies available. ASSESSMENT AND PLAN: 1. Infected bilateral lower extremities with multiple venous stasis ulcers, infection, status post left above the knee amputation. Continue with local care. Bilateral lower extremity venous congestion. 2. Cellulitis of bilateral lower extremities. 3. Multidrug resistant colonization from the urine and wounds. 4. Chronic renal insufficiency. 5. Severe debility, multifactorial. The patient is mostly bed bound, at best she is sitting at the edge of the bed. 6. Chronic pain syndrome. 7. Continue with wound care. 8. Continue with antibiotic. 9. Continue to elevate the right lower extremity to help with the swelling. 10. Discussed with staff. 11. Further management of this patient is based on daily findings on laboratory and physical examination. Discussed with staff. Please refer to chart for more information. Thank you for this dictation. Dictated by Jules Miner PA-C (Al) MD MENDEL Jesus/KENAN /[id number]
--- NOTE | 2019-11-24 17:03 | Progress Note ---
DATE: SUBJECTIVE: Ms. Leach is doing well. She is in intensive care unit, underwent surgery. PHYSICAL EXAMINATION: GENERAL: She is currently alert and oriented. Does not seem to be in acute distress. VITAL SIGNS: Stable, afebrile. HEENT: She is not icteric. NECK: Supple. CHEST: Clear. HEART: S1 and S2. ABDOMEN: Soft. Bowel sounds present. No tenderness. EXTREMITIES: No edema. SKIN: No rash. IMPRESSION: The patient is status post eutev-hoz-vswt amputation. The patient is stable. We will follow. MD TULIO Jesus/KENAN /[id number]
--- NOTE | 2019-11-24 17:33 | Consultation ---
DATE OF CONSULTATION: 11/24/2019 Nephrology Followup Note. SUBJECTIVE: The patient is now in ICU, following left above-knee amputation for gangrene. Looks comfortable. OBJECTIVE: VITALS: Blood pressure 112/72, pulse 88 per minute, afebrile, maintaining room air oxygen saturation. NECK: Without JVP. CHEST: Bilateral symmetrical air entry. No wheezing or respiratory distress. CARDIOVASCULAR: S1, S2. ABDOMEN: Soft, nondistended. EXTREMITIES: Left AKA. Right chronic inflammatory edema. LABORATORY DATA: Hemoglobin 8.2, white count 3.9, platelet count 54,000. Creatinine improved at 1.86, BUN 42. Electrolytes stable. IMPRESSION: 1. Acute kidney injury, continues to slowly resolve. No uremic symptoms. 2. Chronic kidney disease stage, 4 secondary to obstructive uropathy. Continue to monitor. 3. Anemia secondary to chronic kidney disease and iron deficiency, status post IV iron replacement. Monitor hemoglobin. 4. Metabolic acidosis, controlled on oral sodium bicarbonate. 5. Multi drug-resistant urinary tract infection, on IV antibiotics per ID. Diogenes Porras MD [facility]/MODL /[id number]
--- NOTE | 2019-11-24 20:00 | NUR ---
BEDSIDE REPORT GIVEN TO SABINE MONREAL. PATIENT TRANSFERRED TO ROOM 188 WITH TELE. NO S/S OF ACUTE DISTRESS AT THIS TIME. RN UPDATED ON POC AND ALL QUESTIONS ANSWERED. PT AT BASELINE NEURO STATUS A&OX1, VSS. ROOM CHECKED PRIOR TO DEPART ALL BELONGINGS ACCOUNTED FOR.
[2019-11-24] MEDS: MIRTAZAPINE 15 MG TAB PO SCH (21:03)
[2019-11-24] MEDS: MORPHINE SULFATE 2 MG/ML SYR 1ML IV PRN (22:03)
[2019-11-25] VITALS (9 sets, daily range): BP systolic 89–124; BP diastolic 49–72
[2019-11-25 05:12] LABS: BASOPHILS % 0.4 % (0.0-1.0); EOSINOPHILS # (AUTO) 0.2 (0.0-0.4); EOSINOPHILS % 3.6 % (0.0-6.0); HEMATOCRIT 26.9 % (34.2-44.1); HEMOGLOBIN 7.8 g/dL (12.0-16.0); LYMPHOCYTES # (AUTO) 1.3 (1.0-3.2); LYMPHOCYTES % 24.6 % (18.0-39.1); MEAN CORPUSCULAR HEMOGLOBIN 27.7 pg (28-32); MEAN CORPUSCULAR VOLUME 95.4 fL (81-99); MONOCYTES # (AUTO) 0.6 (0.2-0.8); MONOCYTES % 11.8 % (4.4-11.3); NEUTROPHILS # (AUTO) 3.1 (2.1-6.9); NEUTROPHILS % 59.2 % (38.7-80.0); PLATELET COUNT 60 x10e3/uL (140-360); RED BLOOD COUNT 2.82 x10e6/uL (3.6-5.1)
[2019-11-25] MEDS: LEVOTHYROXINE SODIUM 100 MCG TAB PO SCH (05:16)
[2019-11-25] MEDS: MORPHINE SULFATE 2 MG/ML SYR 1ML IV PRN (05:17)
[2019-11-25 05:32] LABS: ALBUMIN 1.8 g/dL (3.5-5.0); ALBUMIN/GLOBULIN RATIO 0.4 (0.8-2.0); ANION GAP 11.7 mmol/L (8-16); CREATININE, SERUM 2.09 mg/dL (0.57-1.11); POTASSIUM 4.7 mmol/L (3.5-5.1)
[2019-11-25] MEDS: SUCRALFATE 1 GM TAB PO SCH ×4 (07:35→21:41)
[2019-11-25] MEDS: ASCORBIC ACID 500 MG TAB PO SCH ×2 (07:57→17:54)
[2019-11-25] MEDS: SODIUM BICARBONATE 650 MG TAB PO SCH ×2 (07:57→17:54)
[2019-11-25] MEDS: ASPIRIN 81 MG CHEW TAB PO SCH (07:57)
[2019-11-25] MEDS: FERROUS SULFATE 325 MG TAB PO SCH ×2 (07:57→17:54)
[2019-11-25] MEDS: FAMOTIDINE 20 MG/2 ML VIAL IV SCH ×2 (07:57→17:54)
[2019-11-25] MEDS: BISACODYL 10 MG SUPP PR SCH (07:58)
--- NOTE | 2019-11-25 08:45 | NUR ---
Handoff report to nurse Roche, made aware patient dressings were changed prior to transferring to floor.
[2019-11-25] MEDS: COLLAGENASE 5 GM TUBE TOP SCH (09:00)
[2019-11-25] MEDS: BALSAM PERU/CASTOR OIL 60 GM OINT...G. TP SCH (09:00)
--- NOTE | 2019-11-25 09:36 | Progress Note ---
DATE: SUBJECTIVE: The patient was transferred out of the Intensive Care Unit today. She reports some discomfort from her sacral wound. She is alert and talkative, but does have some confusion. PHYSICAL EXAMINATION: VITAL SIGNS: The blood pressure is 89/49 and the saturation is 95%. The pulse is 84. HEENT: Shows no facial swelling or erythema. CARDIAC: Reveals regular rate and rhythm with normal S1, S2. LUNGS: Auscultation of lungs shows clear breath sounds bilaterally. There is no wheezing. ABDOMEN: Soft, nontender. There is no rebound or guarding. EXTREMITIES: Shows recent AKA. There is a sacral decubitus wound. LABORATORY DATA: White blood cell count is 5.2 and hemoglobin is 7.8. The platelet count is 60. BUN to creatinine ratio is 46 to 2.09. Other electrolytes are within normal limits. Total bilirubin is 1.3 and the albumin is 1.8. IMPRESSION: 1. Hepatitis C and cirrhosis. 2. Sacral decubitus wound, present on admission. 3. Severe peripheral vascular disease with poorly healing leg wounds. The patient is status post rcrxg-xyj-jsrm amputation. 4. Lymphedema. 5. Moderate protein-calorie malnutrition. 6. Thrombocytopenia. PLAN: 1. Continue wound care. 2. Continue antibiotics. 3. Continue current regimen for cirrhosis. Dalton Dill MD [facility]/MODL /[id number]
[2019-11-25] MEDS ORDERED: FUROSEMIDE INJ 10 MG/ML 4 ML VIAL IV ONE (14:00)
--- NOTE | 2019-11-25 15:27 | Progress Note ---
DATE: SUBJECTIVE: Ms. Leach is currently out of ICU, comfortable, confused. Discussed with Dr. Omer Luna. The patient did have stent on the left side with stones. The patient is noncommunicative. PHYSICAL EXAMINATION: GENERAL: Alert. VITAL SIGNS: Stable, currently afebrile. HEENT: She is not icteric. NECK: Supple. CHEST: Clear. HEART: S1 and S2. ABDOMEN: Soft. IMPRESSION: 1. Renal stent with stones. We will consult Urology. 2. Hepatitis C. 3. Cirrhosis. 4. Decubitus ulcer. 5. Severe peripheral vascular disease. 6. Lymphedema. 7. Protein malnutrition. PLAN: Continue IV antibiotic. Consult Urology. Recheck lab. We will follow. MD TULIO Jesus/KENAN /[id number]
--- NOTE | 2019-11-25 16:48 | Progress Note ---
DATE: 11/25/2019 Renal progress note SUBJECTIVE: Followed for acute kidney injury on chronic kidney disease stage 4, appears to be at or close to her baseline CKD stage 4. Acute kidney injury has resolved largely. Complained of lot of cough and some shortness of breath today. No nausea, no vomiting at this time. OBJECTIVE: VITAL SIGNS: Have been noted and are stable. Blood pressure is 114/62, did have low blood pressure of 89/49. The patient is afebrile at this time, 70 heart rate. LUNGS: Have rales bilateral lung quinones. CARDIOVASCULAR: S1, S2. No rub. ABDOMEN: Soft, nontender. EXTREMITIES: 1+ edema. LABORATORY DATA: Potassium is 4.7, BUN 46, creatinine is 2.1. IMPRESSION: 1. Acute kidney injury on chronic kidney disease stage 4. The patient appears to be at or close to her baseline. However, does appear somewhat slightly on the volume excess side. We will give one dose of Lasix 40 mg IV x1. We will get a followup chest x-ray and BNP level and repeat labs in the morning. Otherwise, creatinine may have been from the patient having an episode of hypotension overnight. 2. Hypertension. Leave off all blood pressure lowering medications since the blood pressure is running on the low side. Currently, the patient is not on any blood pressure medication. 3. Metabolic acidosis. Continue oral sodium bicarb. 4. Urinary tract infection. Continue empiric meropenem. MD LOUISE Bowman/MODL /[id number]
[2019-11-25] MEDS: MIRTAZAPINE 15 MG TAB PO SCH (21:41)
[2019-11-25] MEDS: TRAZODONE HCL 50 MG TAB PO PRN (21:41)
[2019-11-26 00:30] VITALS: BP 126/50
[2019-11-26] MEDS: MORPHINE SULFATE 2 MG/ML SYR 1ML IV PRN ×4 (01:00→23:29)
[2019-11-26] MEDS: ACETAMINOPHEN 325 MG TAB PO PRN (02:51)
--- NOTE | 2019-11-26 03:00 | NUR ---
PATIENTS IV HAS INFILTRATED. MULTIPLE ATTEMPTS AT STARTING A NEW IV HAVE FAILED. PATIENT IS NOW REFUSING TO HAVE ANOTHER IV STARTED AND WANTS TO TRY AGAIN LATER
[2019-11-26] MEDS: LEVOTHYROXINE SODIUM 100 MCG TAB PO SCH (05:01)
--- NOTE | 2019-11-26 05:39 | NUR ---
PATIENT HAS REFUSED TO HAVE ENGINEERING AIDE BLOOD DRAW
--- NOTE | 2019-11-26 06:46 | NUR ---
PATIENT IS RESTING ON THE SIDE OF THE BED. NO DISTRESS NOTED.
--- NOTE | 2019-11-26 07:00 | NUR ---
Received bedside shift report from off going nurse. Patient is in stable condition, no s/s of distress noted. Telemetry applied and working. IV to the left wrist Asymptomatic and patient, with transparent dressing applied C/D/I. Suprapubic catheter intact and patent draining avtar color urine into drainage bag. [place] the left AKA no s/s of infection noted, no drainage noted. Right lower extremity wrapped with Kerlix with moderate drainage. Bed alarm on and working. Bed in lowest position and locked. Call light within reach.
[2019-11-26 07:40] VITALS: BP 118/74
[2019-11-26 08:16] VITALS: BP 118/74
[2019-11-26 08:34] LABS: BASOPHILS % 0.4 % (0.0-1.0); EOSINOPHILS # (AUTO) 0.2 (0.0-0.4); HEMATOCRIT 27.5 % (34.2-44.1); HEMOGLOBIN 8.2 g/dL (12.0-16.0); LYMPHOCYTES # (AUTO) 1.1 (1.0-3.2); LYMPHOCYTES % 23.7 % (18.0-39.1); MEAN CORPUSCULAR HEMOGLOBIN 28.8 pg (28-32); MEAN CORPUSCULAR HGB CONC 29.8 g/dL (31-35); MEAN CORPUSCULAR VOLUME 96.5 fL (81-99); MONOCYTES # (AUTO) 0.5 (0.2-0.8); MONOCYTES % 11.2 % (4.4-11.3); NEUTROPHILS # (AUTO) 2.7 (2.1-6.9); NEUTROPHILS % 60.5 % (38.7-80.0); PLATELET COUNT 62 x10e3/uL (140-360); RED BLOOD COUNT 2.85 x10e6/uL (3.6-5.1); RED CELL DISTRIBUTION WIDTH 16.5 % (11.7-14.4)
--- NOTE | 2019-11-26 08:34 | Diagnostic Imaging Report ---
Examination: Single AP view of the chest. COMPARISON: October 30, 2019 INDICATION: Altered mental status DISCUSSION: Lines/tubes: None. Lungs: Pulmonary venous congestion and interstitial edema. Pleura: Probable small effusions. Heart and mediastinum: Heart enlarged. Bones and soft tissues: No acute bony abnormalities. IMPRESSION: 1. Cardiomegaly with interstitial edema Signed by: Dr. Nick Novak M.D. on 11/26/2019 8:30 AM
[2019-11-26 08:51] LABS: MAGNESIUM 1.8 MG/DL (1.3-2.1); PHOSPHORUS 2.4 MG/DL (2.3-4.7)
[2019-11-26] MEDS: FAMOTIDINE 20 MG/2 ML VIAL IV SCH (09:06)
[2019-11-26 09:13] LABS: ANION GAP 12.5 mmol/L (8-16); CALCIUM 8.2 mg/dL (8.4-10.2); CREATININE, SERUM 1.96 mg/dL (0.57-1.11); POTASSIUM 4.5 mmol/L (3.5-5.1)
[2019-11-26] MEDS: MEROPENEM 500MG/ NS 50ML 50 ML IV SCH (09:39)
[2019-11-26] MEDS: SUCRALFATE 1 GM TAB PO SCH ×4 (09:39→21:00)
[2019-11-26] MEDS: FERROUS SULFATE 325 MG TAB PO SCH ×2 (09:40→16:53)
[2019-11-26] MEDS: ASPIRIN 81 MG CHEW TAB PO SCH (09:40)
[2019-11-26] MEDS: ASCORBIC ACID 500 MG TAB PO SCH ×2 (09:40→16:53)
[2019-11-26] MEDS: SODIUM BICARBONATE 650 MG TAB PO SCH ×2 (09:40→16:53)
[2019-11-26] MEDS ORDERED: SODIUM CHLORIDE 0.9% 250ML 250 ML ONE (09:51)
[2019-11-26] MEDS: BISACODYL 10 MG SUPP PR SCH (09:55)
[2019-11-26] MEDS: FUROSEMIDE INJ 10 MG/ML 4 ML VIAL IV SCH ×3 (12:00→21:00)
--- NOTE | 2019-11-26 13:10 | Progress Note ---
DATE: SUBJECTIVE: The patient was transferred out of the [facility] yesterday. She is now in the general medical. PHYSICAL EXAMINATION: VITAL SIGNS: The blood pressure is 118/74. Saturation is 97%. The pulse is 94. HEENT: Shows no facial swelling or erythema. CARDIAC: Reveals regular rate and rhythm with normal S1, S2. LUNGS: Auscultation of lungs shows decreased breath sounds at the bases. There is no wheezing. ABDOMEN: Soft. There are some ascites. The patient is status post AKA. She has edema on the contralateral side. IMPRESSION: 1. Chronic renal failure, stage 4. 2. Hepatitis C and cirrhosis. 3. Sacral decubitus wound, present on admission. 4. Severe peripheral vascular disease and recent ejieq-mux-qqdr amputation. 5. Lymphedema. 6. Thrombocytopenia. 7. Moderate protein-calorie malnutrition. PLAN: 1. Continue wound care. 2. Continue current regimen for cirrhosis. 3. Continue antibiotics. MD LIBAN Lake/KENAN /[id number]
[2019-11-26] MEDS: BALSAM PERU/CASTOR OIL 60 GM OINT...G. TP SCH (13:20)
[2019-11-26] MEDS: COLLAGENASE 5 GM TUBE TOP SCH (13:20)
--- NOTE | 2019-11-26 15:15 | Progress Note ---
DATE: 11/26/2019 Renal Progress Note SUBJECTIVE: The patient is followed for acute kidney injury on chronic kidney disease. The patient's kidney function is better today. Yesterday, the patient was short of breath, having a cough. I diuresed her with IV Lasix. She has responded quite well. Chest x-ray also showed interstitial edema. Chest x-ray that was done today. For now, she is breathing better. No nausea, no vomiting. Lower extremity edema is better also. OBJECTIVE: VITAL SIGNS: Have been noted and are stable. Blood pressure is 118/74, 94 pulse, afebrile. LUNGS: Rales bilaterally. CARDIOVASCULAR: S1, S2. No rub ABDOMEN: Soft, nontender. EXTREMITIES: 1+ edema. LABORATORY DATA: BNP 2605. IMPRESSION AND PLAN: 1. Acute kidney injury on chronic kidney disease, stage 3 to stage 4. We will continue with IV diuresis. We will keep the patient on scheduled IV Lasix 40 mg q.12 hours was given a dose today. Avoid IV fluids since the patient is fluid overloaded. The patient has interstitial edema on chest x-ray. 2. Follow up chest x-ray tomorrow and repeat labs again tomorrow including a BNP level and make further recommendations. Continue Lasix 40 mg IV q.12 hours. 3. Hypertension. Blood pressure is controlled. Continue to monitor. 4. Congestive heart failure exacerbation with fluid overload. We will keep her on Lasix 40 mg IV q.12 hours. Recheck labs in the morning and also follow up chest x-ray and BNP. MD LOUISE Bowman/MODL /[id number]
[2019-11-26] MEDS: FAMOTIDINE 20 MG TAB PO SCH (16:53)
[2019-11-26 16:59] VITALS: BP 119/56
--- NOTE | 2019-11-26 19:07 | NUR ---
Completed bedside shift report and rounding with the oncoming night nurse. Patient is in stable condition, no s/s of distress noted. Telemetry applied and working. IV to the left wrist Asymptomatic and patient, with transparent dressing applied C/D/I. Suprapubic catheter intact and patent draining avtar color urine into drainage bag. [place] the left AKA no s/s of infection noted, no drainage noted. Right lower extremity wrapped with Kerlix C/D/I. Bed alarm on and working. Bed in lowest position and locked. Call light within reach.
--- NOTE | 2019-11-26 19:35 | NUR ---
Patient received sitting in bed. AAO x 3. Patient had no complaints of pain. No signs of respiratory distress. Wound to right led CDI. Left BKA noted with stitches/sutures with DOMINICK drainage of serosanguineous liquid. Patient assisted to a more comfortable position. Fall precautions implemented. Patient instructed to call for assistance when needed. call light within reach.
[2019-11-26 20:00] VITALS: BP 125/80
[2019-11-26 21:00] VITALS: BP 125/80
[2019-11-26] MEDS: MIRTAZAPINE 15 MG TAB PO SCH (21:00)
[2019-11-27] VITALS (8 sets, daily range): BP systolic 95–138; BP diastolic 50–85
--- NOTE | 2019-11-27 00:20 | NUR ---
Wound dressing performed on right leg. Patient tolerated well.
--- NOTE | 2019-11-27 03:00 | NUR ---
Wound dressing to sacro-gluteal region performed per MD's orders. Suprapubic dressing changed.
[2019-11-27] MEDS: TRAZODONE HCL 50 MG TAB PO PRN (03:16)
[2019-11-27] MEDS: LEVOTHYROXINE SODIUM 100 MCG TAB PO SCH (06:30)
--- NOTE | 2019-11-27 06:50 | NUR ---
Received patient lying in bed with eyes closed. Respiration even and unlabored without SOB. Call light in reach.
--- NOTE | 2019-11-27 07:00 | NUR ---
Patient resting comfortably. Shift report given to oncoming nurse regarding patient's status.
--- NOTE | 2019-11-27 09:32 | Diagnostic Imaging Report ---
EXAM: CHEST SINGLE (PORTABLE) DATE: 11/27/2019 6:10 AM INDICATION: CHF, altered mental status COMPARISON: 11/26/2019 FINDINGS: Again identified are increased interstitial markings present bilaterally which is nonspecific but can be seen in setting of edema. There is blunting of the costophrenic angles and small effusions are suspected. There is no evidence for new large focal consolidation or pneumothorax. The cardiac silhouette remains enlarged. No acute osseous abnormality is identified. IMPRESSION: Stable appearing increased interstitial markings which are nonspecific but can be seen in the setting of edema. Stable cardiomegaly. Signed by: Dr. Tello Gross MD on 11/27/2019 9:28 AM
[2019-11-27] MEDS: SUCRALFATE 1 GM TAB PO SCH ×4 (09:55→20:55)
[2019-11-27] MEDS: FAMOTIDINE 20 MG TAB PO SCH (09:56)
[2019-11-27] MEDS: COLLAGENASE 5 GM TUBE TOP SCH (09:57)
[2019-11-27] MEDS: FUROSEMIDE INJ 10 MG/ML 4 ML VIAL IV SCH ×2 (09:57→20:55)
[2019-11-27] MEDS: ASPIRIN 81 MG CHEW TAB PO SCH (09:57)
[2019-11-27] MEDS: BALSAM PERU/CASTOR OIL 60 GM OINT...G. TP SCH (09:57)
[2019-11-27] MEDS: ASCORBIC ACID 500 MG TAB PO SCH ×2 (09:57→17:47)
[2019-11-27] MEDS: SODIUM BICARBONATE 650 MG TAB PO SCH ×2 (09:57→17:47)
[2019-11-27] MEDS: BISACODYL 10 MG SUPP PR SCH (09:57)
[2019-11-27] MEDS: FERROUS SULFATE 325 MG TAB PO SCH ×2 (09:57→17:46)
[2019-11-27] MEDS: MEROPENEM 500MG/ NS 50ML 50 ML IV SCH (09:57)
[2019-11-27] MEDS: MORPHINE SULFATE 2 MG/ML SYR 1ML IV PRN (09:58)
--- NOTE | 2019-11-27 10:18 | NUR ---
Pt unavailable at this time. RN at bedside. Will follow up as able. GAYATHRI SWIFT [facility] O: [phone]
--- NOTE | 2019-11-27 10:59 | Progress Note ---
DATE: SUBJECTIVE: The patient is seen and evaluated. I had discussed with the nurse. No new events. The patient still remains for need for pain control at amputation site on the left leg, not eating as much, but seems to be alert and oriented. No acute finding. PHYSICAL EXAMINATION: VITAL SIGNS: Temperature is 97.1, pulse is 88, respirations 20, and blood pressure 95/50. GENERAL: Seems to be alert and oriented, in no acute distress. CV: S1 and S2. CHEST: Equal expansion. Clear to auscultation. No acute distress. ABDOMEN: Soft and nontender. No distention. HEENT: Moist. No pallor. No JVD. EXTREMITIES: Left AKA, was complaining of 5/7, remains with mervat and the right lower extremity wounds, on local care. MEDICATIONS: Medication list reviewed. As far as Infectious Disease point of view, the patient is on Merrem. LABORATORY STUDIES: Hemoglobin of 8.2, white blood cells 4.47, platelet 62. No new BMP available. SEROLOGY: No new serology available. MICROBIOLOGY: No new microbiology studies available. RADIOLOGY STUDIES: Chest x-ray from today showed stable increased interstitial marking, which are nonspecific, but can be seen in a settings of edema. Stable cardiomegaly. ASSESSMENT AND PLAN: This is a 54-year-old female with severe lower extremity bilaterally venous congestion with multiple venous ulcers that are infected. The patient received above-knee amputation. The patient received an above-knee amputation on 11/22 on the left side with a plan to get a right above-knee amputation sometime early this week. We will continue with the antibiotic at this point. Continue with the wound care. 1. Renal insufficiency. 2. Thrombocytopenia. 3. Anemia. 4. Debility. 5. Pain. 6. Multiple AVMs of duodenum, on EGD. 7. Hepatitis C. 8. Hepatic cirrhosis. 9. Overall very ill with guarded prognosis. Further management of this patient is based on daily findings on laboratory and physical examination. Please refer to chart for more information. Dictated by Jules Miner PA-C (Al) Vilma Black MD /MODL /[id number]
[2019-11-27 14:28] LABS: BASOPHILS % 0.4 % (0.0-1.0); EOSINOPHILS # (AUTO) 0.2 (0.0-0.4); EOSINOPHILS % 4.1 % (0.0-6.0); HEMATOCRIT 29.1 % (34.2-44.1); HEMOGLOBIN 8.6 g/dL (12.0-16.0); LYMPHOCYTES # (AUTO) 1.1 (1.0-3.2); LYMPHOCYTES % 22.2 % (18.0-39.1); MEAN CORPUSCULAR HEMOGLOBIN 27.9 pg (28-32); MEAN CORPUSCULAR HGB CONC 29.6 g/dL (31-35); MEAN CORPUSCULAR VOLUME 94.5 fL (81-99); MONOCYTES # (AUTO) 0.4 (0.2-0.8); MONOCYTES % 8.8 % (4.4-11.3); NEUTROPHILS # (AUTO) 3.2 (2.1-6.9); NEUTROPHILS % 64.3 % (38.7-80.0); PLATELET COUNT 68 x10e3/uL (140-360); RED BLOOD COUNT 3.08 x10e6/uL (3.6-5.1); RED CELL DISTRIBUTION WIDTH 16.5 % (11.7-14.4)
[2019-11-27 14:34] LABS: BILIRUBIN,URINE NEGATIVE (NEGATIVE); CLARITY,URINE CLEAR (CLEAR); COLOR,URINE YELLOW (YELLOW); KETONES,URINE NEGATIVE (NEGATIVE); LEUKOCYTE ESTERASE ,URINE MODERATE (NEGATIVE); NITRITE,URINE NEGATIVE (NEGATIVE); PROTEIN,URINE DIPSTICK NEGATIVE (NEGATIVE); URINE UROBILINOGEN 0.2 mg/dL (0.2 - 1)
[2019-11-27 14:46] LABS: ALBUMIN 1.9 g/dL (3.5-5.0); ALBUMIN/GLOBULIN RATIO 0.4 (0.8-2.0); ANION GAP 14.4 mmol/L (8-16); CALCIUM 8.4 mg/dL (8.4-10.2); CREATININE, SERUM 2.07 mg/dL (0.57-1.11); MAGNESIUM 1.8 MG/DL (1.3-2.1); PHOSPHORUS 3.1 MG/DL (2.3-4.7); POTASSIUM 4.4 mmol/L (3.5-5.1)
[2019-11-27 15:09] LABS: BACTERIA,URINE RARE /HPF; EPITHELIAL CELLS,URINE FEW /LPF; RBC,URINE 21-50 /HPF (0-5)
--- NOTE | 2019-11-27 17:35 | Progress Note ---
DATE: SUBJECTIVE: No new complaints. PHYSICAL EXAMINATION: VITAL SIGNS: Blood pressure is 110/69 and saturation is 97%. HEENT: Shows no facial swelling or erythema. CARDIAC: Reveals regular rate and rhythm with normal S1, S2. LUNGS: Auscultation of lungs show clear breath sounds bilaterally. There is no wheezing. ABDOMEN: Soft, nontender. There is no rebound or guarding. EXTREMITIES: Show no leg edema. IMPRESSION: 1. Hepatitis C and cirrhosis. 2. Chronic renal failure, stage 4. 3. Severe peripheral vascular disease with recent storx-iru-vnpm amputation. 4. Anemia and history of rectus hematoma. 5. Prior arteriovenous malformations on endoscopy. 6. Lymphedema. 7. Moderate protein-calorie malnutrition. 8. Decubitus ulcers present on admission. PLAN: 1. Complete current antibiotics. 2. Continue current regimen for cirrhosis. 3. Continue diuretics. 4. Wound care. 5. Physical therapy. Dalton Dill MD [facility]/MODL /[id number]
[2019-11-27] MEDS: GABAPENTIN 100 MG CAP PO SCH ×2 (17:46→20:55)
[2019-11-27] MEDS: FAMOTIDINE 20 MG/2 ML VIAL IV SCH (18:21)
--- NOTE | 2019-11-27 19:00 | NUR ---
Report given to night stocker. Respiration even and unlabored without SOB. Call light in reach.
--- NOTE | 2019-11-27 19:34 | NUR ---
Patient received sitting in bed. AAO x 2. No acute distress noted. Fall precautions implemented. Patient instructed to call for assistance when needed. Call light within reach.
[2019-11-27] MEDS: MIRTAZAPINE 15 MG TAB PO SCH (20:55)
[2019-11-28] VITALS (7 sets, daily range): BP systolic 94–109; BP diastolic 46–59
[2019-11-28] MEDS: MEPERIDINE HCL INJ 25 MG/ML VIAL IV PRN (01:56)
--- NOTE | 2019-11-28 04:05 | NUR ---
Patient refused wound dressing.
[2019-11-28 05:13] LABS: BASOPHILS % 0.7 % (0.0-1.0); EOSINOPHILS # (AUTO) 0.2 (0.0-0.4); EOSINOPHILS % 4.4 % (0.0-6.0); HEMATOCRIT 30.5 % (34.2-44.1); HEMOGLOBIN 9.1 g/dL (12.0-16.0); LYMPHOCYTES # (AUTO) 1.3 (1.0-3.2); LYMPHOCYTES % 23.3 % (18.0-39.1); MEAN CORPUSCULAR HEMOGLOBIN 28.5 pg (28-32); MEAN CORPUSCULAR HGB CONC 29.8 g/dL (31-35); MEAN CORPUSCULAR VOLUME 95.6 fL (81-99); MONOCYTES # (AUTO) 0.5 (0.2-0.8); MONOCYTES % 8.4 % (4.4-11.3); NEUTROPHILS # (AUTO) 3.4 (2.1-6.9); NEUTROPHILS % 62.7 % (38.7-80.0); PLATELET COUNT 72 x10e3/uL (140-360); RED BLOOD COUNT 3.19 x10e6/uL (3.6-5.1); RED CELL DISTRIBUTION WIDTH 16.2 % (11.7-14.4)
[2019-11-28 05:25] LABS: ANION GAP 16.4 mmol/L (8-16); CALCIUM 8.5 mg/dL (8.4-10.2); CREATININE, SERUM 2.19 mg/dL (0.57-1.11); MAGNESIUM 1.8 MG/DL (1.3-2.1); POTASSIUM 4.4 mmol/L (3.5-5.1)
[2019-11-28] MEDS: LEVOTHYROXINE SODIUM 100 MCG TAB PO SCH (06:15)
--- NOTE | 2019-11-28 07:00 | NUR ---
BEDSIDE SHIFT REPORT RECEIVED FROM THE METAL BONDING HELPER RN. PT IS AAAOX2. EDUCATED PT ABOUT FALL PRECAUTIONS. PT VERBALIZED UNDERSTANDING. CALL LIGHT WITH IN EASY REACH. INSTRUCTED PT TO USE CALL LIGHT FOR ALL THE NEEDS. BED IS LOW AND LOCKED. SIDE RAILS X2. BED ALARM IS ON. PT DENIES NEEDS AT THIS TIME.
[2019-11-28] MEDS: SUCRALFATE 1 GM TAB PO SCH ×4 (08:30→21:00)
--- NOTE | 2019-11-28 09:00 | NUR ---
PT IS REFUSING WOUND CARE AND IV ABX AT THIS TIME.
[2019-11-28] MEDS: FAMOTIDINE 20 MG/2 ML VIAL IV SCH ×2 (09:19→17:22)
[2019-11-28] MEDS: ASPIRIN 81 MG CHEW TAB PO SCH (09:19)
[2019-11-28] MEDS: FUROSEMIDE INJ 10 MG/ML 4 ML VIAL IV SCH (09:19)
[2019-11-28] MEDS: SODIUM BICARBONATE 650 MG TAB PO SCH ×2 (09:19→17:22)
[2019-11-28] MEDS: ASCORBIC ACID 500 MG TAB PO SCH ×2 (09:19→17:22)
[2019-11-28] MEDS: GABAPENTIN 100 MG CAP PO SCH ×2 (09:19→21:00)
[2019-11-28] MEDS: FERROUS SULFATE 325 MG TAB PO SCH ×2 (09:19→17:22)
--- NOTE | 2019-11-28 09:27 | Diagnostic Imaging Report ---
EXAM: CHEST SINGLE (PORTABLE) DATE: 11/28/2019 5:40 AM INDICATION: Pulmonary edema COMPARISON: 11/27/2019 FINDINGS: The patient is slightly rotated limiting evaluation. Again noted are increased interstitial markings bilaterally suggestive of edema. There is no evidence for new large focal consolidation or pneumothorax. There is blunting of the costophrenic angles and trace effusions are suspected. The cardiomediastinal silhouette is stable in appearance. No acute osseous abnormality is identified. IMPRESSION: No significant interval change from 11/27/2019. Stable findings suggestive of interstitial edema. Signed by: Dr. Tello Gross MD on 11/28/2019 9:24 AM
[2019-11-28] MEDS ORDERED: BISACODYL 10 MG SUPP PR PRN (09:30)
[2019-11-28] MEDS: MEROPENEM 500MG/ NS 50ML 50 ML IV SCH (10:00)
[2019-11-28] MEDS: BALSAM PERU/CASTOR OIL 60 GM OINT...G. TP SCH (10:00)
--- NOTE | 2019-11-28 10:00 | NUR ---
PT REFUSED DULCOLAX SUPPOSITORY.
[2019-11-28 11:00] LABS: HYPOCHROMASIA SLIGHT; RBC MORPHOLOGY COMMENT ABNORMAL
--- NOTE | 2019-11-28 11:38 | Progress Note ---
DATE: SUBJECTIVE: The patient is seen and evaluated. Available labs and notes reviewed. Discussed with the nurse in the room. Pain seems to be controlled. REVIEW OF SYSTEMS: The patient states that the pain is controlled at this moment. Poor appetite. No nausea. No vomiting. No fever. No chills. No chest pain. No shortness of breath. PHYSICAL EXAMINATION: VITAL SIGNS: Temperature 97.6, pulse is 88, respiration 19, and blood pressure 101/59. GENERAL: Alert and oriented, sitting on edge of the bed. No acute distress. Poor appetite. CV: S1 and S2. CHEST: Equal expansion. Clear to auscultation. No acute distress. ABDOMEN: Soft and nontender. No distention. Bowel sounds positive. HEENT: Moist. No pallor. No JVD. EXTREMITIES: Right lower extremity, AKA surgical site seen. Left lower extremity, AKA site. No acute distress. Right lower extremity with multiple wounds, on local care and dressed. MEDICATIONS: Medication list reviewed and as far as Infectious Disease point of view, the patient is on meropenem. LABORATORY STUDIES: White blood cells of 5.49, hemoglobin 9.1, platelets 72, improved from 68. Sodium 140 and potassium 4.4. MICROBIOLOGY: No new microbiology studies available. RADIOLOGY STUDIES: Chest x-ray from today showed no significant interval change from 11/27/2019. ASSESSMENT AND PLAN: 1. Venous stasis, bilateral lower extremities. 2. Infected venous ulcers, bilateral lower extremities. 3. Renal failure. 4. Thrombocytopenia. 5. Anemia. 6. Debility. 7. Pain. 8. Multiply arteriovenous malformation formation of duodenum. 9. Hepatitis C. 10. Hepatic cirrhosis. 11. Status post left above-knee amputation on 11/22, with a plan for right above-knee amputation sometime this week. Currently with pain management and wound care. Continue with Merrem until the amputation. Further management of this patient is based on daily findings on laboratory and physical examination. Discussed with Dr. Black. Dictated by Jules Miner PA-C (Al) Vilma Black MD /MODL /[id number]
[2019-11-28] MEDS: COLLAGENASE OINTMENT 30 GM TUBE TP SCH (14:00)
--- NOTE | 2019-11-28 14:32 | NUR ---
Pt prefers not to visit with Bunk House Worker at this time. Bunk House Worker followed up with RN. Bunk House Worker will follow as able. GAYATHRI SWIFT [facility] Department O: [phone]
--- NOTE | 2019-11-28 16:00 | NUR ---
CALL BACK RECEIVED FROM DR. SANDERS. PT REFUSED SURGERY PER DR. SANDERS. INFORMED THE SAME TO CASE MANAGEMENT.
--- NOTE | 2019-11-28 17:40 | Progress Note ---
DATE: 11/27/2019 Nephrology Progress Note SUBJECTIVE: The patient appears comfortable and denies any nausea or shortness of breath. She is followed for acute kidney injury on chronic kidney disease. OBJECTIVE: VITAL SIGNS: Blood pressure 110/69, pulse 87 per minute, oxygen saturation 97% on room air. NECK: Supple without jugular venous distention. CHEST: Clear to auscultation bilaterally. CARDIOVASCULAR: S1, S2. ABDOMEN: Nondistended. EXTREMITIES: Both lower legs have chronic nonpitting type inflammatory edema. IMAGING: Chest x-ray shows stable appearing increased interstitial markings, which are nonspecific. LABORATORY DATA: Creatinine is stable at 1.9, BUN 39, electrolytes normal. Magnesium and phosphorus noted. ASSESSMENT: 1. Acute kidney injury on chronic kidney disease stage 4. Overall, improved. 2. Congestive heart failure with fluid overload, on IV Lasix b.i.d. 3. Metabolic acidosis, controlled on oral sodium bicarbonate. 4. Anemia secondary to chronic kidney disease. RECOMMENDATION: 1. May continue with IV Lasix b.i.d. today. 2. May switch to oral Lasix tomorrow if not dyspneic. Monitor hemoglobin level, which has been stable. Diogenes Porras MD /MODL /[id number]
--- NOTE | 2019-11-28 17:45 | Progress Note ---
DATE: 11/28/2019 Nephrology Followup SUBJECTIVE: The patient is sleeping, rehab nursing tech reports that she refused to cooperate for bath. OBJECTIVE: GENERAL: The patient appears in no respiratory distress. VITAL SIGNS: Blood pressure 94/52, pulse 88 per minute on room air, oxygen is 97%. NECK: Without JVP. CHEST: Bilateral air entry. No unusual respiratory effort. CARDIOVASCULAR: S1, S2. ABDOMEN: Not examined due to patient's sleeping. EXTREMITIES: Chronic nonpitting inflammatory edema. LABORATORY DATA: Hemoglobin 9.1, normal white count. Platelets 72,000. Electrolytes normal. BUN and creatinine are also stable at 40 and 2.19 respectively. Magnesium 1.8. BNP elevated at 2075. IMAGING: Chest x-ray reports no significant change since yesterday, still with interstitial edema. ASSESSMENT/PLAN: 1. Acute kidney injury on chronic kidney disease, stage 3-4. Renal function is improved and is stable. 2. Congestive heart failure and fluid overload, excellent response to IV Lasix b.i.d. total urine output about 5 L yesterday. However, her chest x-ray, per report, still shows interstitial edema. BNP elevated. We will continue IV Lasix b.i.d. today. 3. Pulmonary hypertension, blood pressure controlled. 4. Metabolic acidosis, controlled on oral sodium bicarbonate. Continue same. Diogenes Porras MD /MODL /[id number]
--- NOTE | 2019-11-28 18:00 | NUR ---
PT IS NON COMPLIANT WITH FALL PRECAUTIONS.
--- NOTE | 2019-11-28 19:00 | NUR ---
BEDSIDE SHIFT REPORT GIVEN TO THE [place] WORKER RN. PT DENIED FURTHER NEEDS.
[2019-11-28] MEDS: MIRTAZAPINE 15 MG TAB PO SCH (21:00)
[2019-11-28] MEDS: FUROSEMIDE INJ 10 MG/ML 2 ML VIAL IV SCH (21:00)
[2019-11-28] MEDS ORDERED: FUROSEMIDE INJ 10 MG/ML 4 ML VIAL IV SCH (21:00)
[2019-11-28] MEDS ORDERED: HYDROCODONE/APAP 10MG-325MG TAB PO ONE (23:00)
[2019-11-29] VITALS (8 sets, daily range): BP systolic 102–126; BP diastolic 51–90
[2019-11-29] MEDS ORDERED: MAGNESIUM HYDROXIDE 30 ML UDC PO STA (01:25)
--- NOTE | 2019-11-29 01:58 | NUR ---
Received pt this evening in bed alert. Refusing for PIV to be swithched out or removed. Explained to patient there was medication to be administered to her via the PIV including pain medication as pt moaning and crying shaking head yes to pain. MD in to see patient order given for po [place] 10/325 and given. GI MD in to see patient, easily aroused cont to refuse new PIV site. Pt sitting at side of bed lying back , no s/sx of acute distress noted at this time will cont to mon.
[2019-11-29] MEDS: LEVOTHYROXINE SODIUM 100 MCG TAB PO SCH (05:52)
--- NOTE | 2019-11-29 07:00 | NUR ---
RCD PT AT BED PT IS ALERT AND ORIENTED PT RESTING ON BED NO SIGNS OF ANY DISTRESS NOTED IV PATENT BY SALINE FLUSH DOMINICK DRAIN ON THE LEFT KNEE BED LOW AND LOCKED CALL LIGHT IN REACH
[2019-11-29] MEDS: SUCRALFATE 1 GM TAB PO SCH ×4 (07:30→22:13)
[2019-11-29] MEDS: MEROPENEM 500MG/ NS 50ML 50 ML IV SCH ×2 (09:00→11:00)
[2019-11-29] MEDS: FERROUS SULFATE 325 MG TAB PO SCH ×2 (09:00→16:05)
[2019-11-29] MEDS: ASCORBIC ACID 500 MG TAB PO SCH ×2 (09:00→16:05)
[2019-11-29] MEDS: BALSAM PERU/CASTOR OIL 60 GM OINT...G. TP SCH (09:00)
[2019-11-29] MEDS: ASPIRIN 81 MG CHEW TAB PO SCH (09:00)
[2019-11-29] MEDS: COLLAGENASE OINTMENT 30 GM TUBE TP SCH (09:00)
[2019-11-29] MEDS: SODIUM BICARBONATE 650 MG TAB PO SCH ×2 (09:00→16:05)
[2019-11-29] MEDS: FUROSEMIDE INJ 10 MG/ML 2 ML VIAL IV SCH ×3 (09:00→22:13)
[2019-11-29] MEDS: GABAPENTIN 100 MG CAP PO SCH ×2 (09:00→22:13)
[2019-11-29] MEDS: FAMOTIDINE 20 MG/2 ML VIAL IV SCH ×2 (09:00→16:05)
--- NOTE | 2019-11-29 12:00 | NUR ---
DRESSING CHANGED ON THE RIGHT LEG AND LOWER SACRUM
--- NOTE | 2019-11-29 12:01 | NUR ---
INPATIENT WOUNDCARE CONSULT MADE FOR ORDER CLARIFICATION FOR TREATMENT OF LOWER EXTREMITY AND RIGHT UNSTAGEABLE SACROGLUTEAL ULCERATION MD ORDERS ARE CURRENT AND FOUND IN PATIENT MEDICAL RECORD Addendum: 11/29/19 at 1201 by Adair Esteves RN Amended: Links added.
--- NOTE | 2019-11-29 12:39 | Progress Note ---
DATE: 11/29/2019 Nephrology Progress Note SUBJECTIVE: The patient denies any uremic symptoms. Sitting up, eating lunch. OBJECTIVE: GENERAL: Appears very comfortable. VITAL SIGNS: Blood pressure 102/77, pulse 77 per minute, and room air oxygen saturation is 100%. NECK: Supple without jugular venous distention. CHEST: Good bilateral air entry. I do not hear any crepitations or wheezing. CARDIOVASCULAR: Normal S1 and S2 without rub or gallop. ABDOMEN: Soft and nondistended. EXTREMITIES: Unchanged chronic nonpitting edema. LABORATORY DATA: BMP is pending from today. Yesterday's creatinine was 2.19 with BUN of 40. IMPRESSION: 1. Acute kidney injury on chronic kidney disease, stage 3 to 4. Renal function appears to have approached baseline. a. Continue to monitor in hospital. 2. Congestive heart failure and fluid overload, excellent response to IV Lasix. Dose now decreased to 20 mg IV b.i.d. in preparation to switch to oral. The patient denies any dyspnea. 3. Hypertension, blood pressure controlled. 4. Metabolic acidosis, continue oral sodium bicarbonate for now. Diogenes Porras MD [facility]/MODL /[id number]
--- NOTE | 2019-11-29 12:59 | Progress Note ---
DATE: SUBJECTIVE: The patient is seen and evaluated. Available labs and notes reviewed. Discussed with the nurse. REVIEW OF SYSTEMS: The patient is in pain, does not feel like talking, but clinically no acute signs of shortness of breath or acute finding. PHYSICAL EXAMINATION: VITAL SIGNS: Temperature 95.9, pulse 70, respiration 24, blood pressure 102/67. Redo of the vital signs showed temperature 95, pulse 77, respiration 18, and blood pressure 102/77. GENERAL: Awake and alert, seems to be in pain from lower extremities. CV: S1-S2. CHEST: Equal expansion. Decreased breath sounds. No acute distress. ABDOMEN: Soft, nontender. HEENT: Moist. No pallor. No JVD. EXTREMITIES: The patient with the left AKA, on local care and the right lower extremity multiple wounds and venous stasis in congestion with necrotic wounds. MEDICATIONS: The patient is on meropenem as far as Infectious Disease point of view. LABORATORY STUDIES: No new CBC or BMP from today and no new serology available. Microbiology, no new microbiology. Imaging, no new. RADIOLOGY STUDIES: Had a chest x-ray yesterday, which showed no significant interval change overall from the day before. ASSESSMENT AND PLAN: 1. Venous stasis of bilateral lower extremities. 2. Venous stasis ulcers with infection. 3. Multiple wounds. 4. 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 5. Renal failure. 6. Pain. 7. Arteriovenous malformation formation. 8. of duodenum on GI scope. 9. Hepatitis C. 10. Hepatic cirrhosis. 11. Continue with meropenem. 12. Continue with wound care. 13. Pending right above knee amputation at some point. Currently monitor the patient in the clinic. Follow up with the labs. 14. Guarded prognosis. 15. Pain management team on the case. Please refer to chart for more information. Dictated by Jules Miner PA-C (Al) Vilma Black MD /MODL /[id number]
--- NOTE | 2019-11-29 14:00 | NUR ---
PATIENT SIGNED THE CONSENT SHE SAID SHE TOOK THE DECISION TO DO THE SURGERY
--- NOTE | 2019-11-29 17:00 | NUR ---
PT GOING FOR SURGERY ON TOMORROW NPO AFTER MIDNIGHT SIGNED THE CONSENT
--- NOTE | 2019-11-29 18:00 | NUR ---
PATIENT REFUSED TO PUT THE TELEY BACK
--- NOTE | 2019-11-29 18:40 | NUR ---
PT RESTING ON BED BED SIDE REPORT GIVEN TO ONCOMING NURSE
--- NOTE | 2019-11-29 19:30 | NUR ---
Patient received sitting up in bed. AAO x 3. Patient had no complaints of pain. Respirations even and non-labored. Fall precautions implemented. Patient instructed to call for assistance when needed. Call light within reach
--- NOTE | 2019-11-29 20:40 | Progress Note ---
DATE: 11/29/2019 PRIMARY CARE PHYSICIAN: Dr. Adela Del Real. CONSULTING PHYSICIANS: Include: 1. Dr. Herman with Wound Care. 2. Dr. Kirby Hammond with Nephrology. 3. Dr. Dalton Dill with Pulmonology. 4. Dr. Vilma Black with Infectious Disease. 5. Dr. Herbert Ramos with Palliative Care. 6. Dr. Cathy Rinaldi with Cardiology. 7. Dr. Joby Bueno with Gastroenterology. 8. Dr. Alvarado Medina with Surgery. 9. Dr. Omer Luna with Urology. 10. Dr. Anjel Garvey with Psychiatry. SUBJECTIVE: The patient is sitting on the edge of the bed. She is talking with Yen Godwin, nurse practitioner with palliative care. We had an extensive talk with her about having her right aveaz-lkm-taoh amputation and the pros and cons regarding this. The patient has been refusing some treatments. She is more awake and lucid today in comparison to yesterday where she was more drowsy. She has pain off and on. The pain level of 8/10 in general. She was given Dolph due to no IV access. Otherwise, no new complaints. OBJECTIVE: VITAL SIGNS: Temperature 95.0, T-max 99.2, heart rate 77, blood pressure 102/77, respirations 18, and oxygen saturation 95% on room air. Intake and output 1250 mL and 2500 mL out. GENERAL: Able to sit on the edge of the bed with right lower extremity hanging off the bed. Awake, alert, and oriented. LUNGS: Generally clear to auscultation. Respirations unlabored on room air. HEENT: EOMI. NECK: Supple. CARDIOVASCULAR: Regular rate and rhythm. No murmur. ABDOMEN: Bowel sounds positive. Soft. Suprapubic catheter with yellow urine. EXTREMITIES: Left AKA, incision site with mervat. Incision clean, dry, and intact. No dressing. Minimal serosanguineous drainage. Right lower extremity with multiple poorly healing wounds. INTEGUMENTARY: Right leg wounds as above. Unstageable sacral decubitus ulcer with a small amount of eschar. NEUROLOGICAL: GCS 15. Nonfocal. MEDICATIONS: Reviewed. DIAGNOSTIC STUDIES AND LABORATORY DATA: No new laboratory data. Chest x-ray yesterday showed no significant interval change. From 11/26 chest x-ray, again noted are increased interstitial markings bilaterally suggestive of edema. No evidence for new large focal consolidation or pneumothorax. There is blunting of the costophrenic angles and trace effusions suspected. ASSESSMENT AND PLAN: 1. Severe bilateral aortoiliac femoral peripheral arterial disease, status post left nkndd-hlq-wkbz amputation. Plan is still for bilateral wfdpn-odw-xnph amputations. The patient is agreeable and consent has been obtained. Thus, the palliative measure to give her a better quality of life right hycxy-hdb-iusj amputation plan for tomorrow morning, Vanesa and Marianne Mcbride, both agreeable. 2. Chronic right lower extremity cellulitis/arterial ulcers due to peripheral arterial disease with wound cultures positive for multi-drug resistant organism Acinetobacter baumannii, multi-drug resistant organism methicillin-resistant Staphylococcus aureus and Enterococcus faecalis. Wound care physician and ID continue to follow. Merrem IV antibiotics continue. 3. Right zoisr-uyr-ploh amputation plan for tomorrow morning. 4. Anemia, grade 1 esophageal varices, gastropathy, portal hypertension, duodenal arteriovenous malformation, status post arteriovenous malformation fulguration. Hemoglobin 9.1 and hematocrit 30.5 yesterday. Reassess H and H in a.m. 5. Hepatitis C, cirrhosis with thrombocytopenia, elevated alkaline phosphatase 641 today, it was 701 on admission. Acute hepatitis panel negative. Intermittently confused. Ammonia level within normal limits at 54 on 11/26. Per Speech Language Pathology, she is tolerating cardiac diet well. Currently n.p.o. due to surgery in the morning. 6. Chronic kidney disease stage 4, estimated GFR 23 on 11/27. Nephrology following, not on hemodialysis. 7. Chronic obstructive pulmonary disease without exacerbation. Pulmonology following. 11/27 chest x-ray results as above. 8. Hypothyroidism. Continue levothyroxine 100 mcg daily. 9. Anxiety/depression. Continue home dose of Remeron and trazodone. 10. End of life. Palliative care following. Psychiatry consulted given body image disturbance with plan for bilateral hqhxn-eql-ikar amputation. DNR is in place. Advance directive was completed on 11/16, collective decision makers are Vanesa Olvera, is primary and Rae Julio, is alternate. 11. Prophylaxis with Pepcid. Time spent 35 minutes. Billing code 26643. Dictated by Terrence Archibald, SHELTER SUPERVISOR MD [facility]/MEAGANL /[id number]
[2019-11-29] MEDS: TRAZODONE HCL 50 MG TAB PO PRN (22:00)
[2019-11-29] MEDS: MEPERIDINE HCL INJ 25 MG/ML VIAL IV PRN (22:12)
[2019-11-29] MEDS: MIRTAZAPINE 15 MG TAB PO SCH (22:13)
[2019-11-29] MEDS: ACETAMINOPHEN 325 MG TAB PO PRN (23:54)
[2019-11-30] VITALS (8 sets, daily range): BP systolic 88–131; BP diastolic 57–76
[2019-11-30] MEDS: LEVOTHYROXINE SODIUM 100 MCG TAB PO SCH (05:25)
[2019-11-30 05:42] LABS: ALBUMIN 1.8 g/dL (3.5-5.0); ALBUMIN/GLOBULIN RATIO 0.4 (0.8-2.0); ANION GAP 14.1 mmol/L (8-16); CALCIUM 8.1 mg/dL (8.4-10.2); CREATININE, SERUM 2.21 mg/dL (0.57-1.11); POTASSIUM 4.1 mmol/L (3.5-5.1)
[2019-11-30 05:46] LABS: BASOPHILS # (AUTO) 0.1 (0.0-0.1); BASOPHILS % 1.3 % (0.0-1.0); EOSINOPHILS # (AUTO) 0.2 (0.0-0.4); HEMATOCRIT 26.8 % (34.2-44.1); LYMPHOCYTES # (AUTO) 1.3 (1.0-3.2); LYMPHOCYTES % 28.6 % (18.0-39.1); MEAN CORPUSCULAR HEMOGLOBIN 28.2 pg (28-32); MEAN CORPUSCULAR HGB CONC 29.9 g/dL (31-35); MEAN CORPUSCULAR VOLUME 94.4 fL (81-99); MONOCYTES # (AUTO) 0.5 (0.2-0.8); MONOCYTES % 11.5 % (4.4-11.3); NEUTROPHILS # (AUTO) 2.5 (2.1-6.9); NEUTROPHILS % 53.9 % (38.7-80.0); PLATELET COUNT 61 x10e3/uL (140-360); RED BLOOD COUNT 2.84 x10e6/uL (3.6-5.1); RED CELL DISTRIBUTION WIDTH 15.9 % (11.7-14.4)
--- NOTE | 2019-11-30 07:00 | NUR ---
Walking rounds done. Patient resting comfortably. BSSR given to oncoming nurse.
[2019-11-30 07:20] LABS: ANISOCYTOSIS SLIGHT; HYPOCHROMASIA SLIGHT; PLATELET ESTIMATE ADEQUATE; PLATELET MORPHOLOGY COMMENT FEW LARGE; RBC MORPHOLOGY COMMENT NORMAL
[2019-11-30] MEDS: SUCRALFATE 1 GM TAB PO SCH ×4 (07:30→21:10)
[2019-11-30] MEDS: COLLAGENASE OINTMENT 30 GM TUBE TP SCH (09:00)
[2019-11-30] MEDS: ASCORBIC ACID 500 MG TAB PO SCH ×2 (09:00→18:07)
[2019-11-30] MEDS: BALSAM PERU/CASTOR OIL 60 GM OINT...G. TP SCH (09:00)
[2019-11-30] MEDS: SODIUM BICARBONATE 650 MG TAB PO SCH ×2 (09:00→18:07)
[2019-11-30] MEDS: FERROUS SULFATE 325 MG TAB PO SCH ×2 (09:00→18:07)
[2019-11-30] MEDS: GABAPENTIN 100 MG CAP PO SCH ×2 (09:00→21:10)
[2019-11-30] MEDS: FAMOTIDINE 20 MG/2 ML VIAL IV SCH ×2 (10:48→18:07)
[2019-11-30] MEDS: MEROPENEM 500MG/ NS 50ML 50 ML IV SCH (10:48)
--- NOTE | 2019-11-30 10:54 | Progress Note ---
DATE: 11/30/2019 Nephrology Followup Note SUBJECTIVE: The patient denies any uremic symptoms. Lying at an angle of about 15 degrees on her side, no shortness of breath. OBJECTIVE: GENERAL: Appears comfortable. VITAL SIGNS: Stable. Blood pressure 113/57, pulse 90 per minute, oxygen saturation 96% on room air. Intake and output shows 960 in and 2535 out, on IV Lasix. NECK: Supple without jugular venous distention. RESPIRATORY: Bilateral air entry, without extra respiratory effort. I do not hear any wheezing. CARDIOVASCULAR: Normal S1, S2. ABDOMEN: Soft, nondistended. EXTREMITIES: Unchanged, chronic inflammatory nonpitting edema. LABORATORY DATA: Hemoglobin 8. Electrolytes normal. Creatinine 2.2, BUN 42, total calcium 8.1, albumin 1.8. ASSESSMENT: 1. Acute kidney injury on chronic kidney disease stage 4. Renal function has been stable recently. Continue to monitor frequently in hospital. 2. Congestive heart failure and fluid overload, excellent response to IV Lasix. We will switch to oral today. 3. History of hypertension, current blood pressure control. 4. Metabolic acidosis, controlled on oral sodium bicarbonate. Continue same for now. 5. Anemia secondary to chronic kidney disease. Status post IV iron. Now on oral iron. Diogenes Porras MD [facility]/MODL /[id number]
--- NOTE | 2019-11-30 12:19 | Progress Note ---
DATE: SUBJECTIVE: The patient is seen and evaluated. Available labs and notes reviewed. REVIEW OF SYSTEMS: Unable to obtain review of systems secondary to the patient's medical condition. The patient is comfortably sleeping in the bed, medicated for pain of lower extremities. PHYSICAL EXAMINATION: VITAL SIGNS: Temperature 98.9, pulse is 90, respirations 17, and blood pressure 113/57. GENERAL: Comfortable in bed, leaning on her left side. CV: S1 and S2. CHEST: Decreased breath sounds. No acute distress. ABDOMEN: Nontender and soft. HEENT: Moist. No pallor. No JVD. EXTREMITIES: With left AKA, on local care. Right lower extremity with multiple wounds dressed, on local care. MEDICATIONS: Medication list reviewed and as far as Infectious Disease point of view, the patient is on Merrem. LABORATORY STUDIES: White count of 4.54, hemoglobin 8, and platelets 61. Sodium 137, potassium 4.1, and creatinine is 2.21. Serology; no new serology. MICROBIOLOGY: No new microbiology. IMAGING: No new imaging. ASSESSMENT AND PLAN: A 54-year-old female with very complicated past medical history and severe peripheral vascular disease and venous ulcers that are infected. The patient already received above-knee amputation on the left with the plan for right above-knee amputation most likely today. Remains on Merrem. We most likely stop antibiotics soon after the amputation. Other medical conditions including multidrug-resistant colonization of the wounds. 1. Renal failure. 2. Arteriovenous malformation of the duodenum on GI scope. 3. Hepatitis C. 4. Hepatic cirrhosis. 5. Pain. 6. Severe debility. 7. Continue with Merrem. Continue with wound care. Further management of this patient is based on daily findings on laboratory and physical examination. Discussed with Dr. Black in details. Please refer to chart for more information. Overall guarded prognosis. Dictated by Jules Miner PA-C (Al) Vilma Black MD /MODL /[id number]
--- NOTE | 2019-11-30 12:45 | NUR ---
pt off unit for procedure.
[2019-11-30] MEDS ORDERED: LEVOFLOXACIN 500MG/D5W 100ML 100 ML IV ONE (13:50)
[2019-11-30] MEDS ORDERED: FENTANYL CITRATE/PF 100MCG/2 ML INJ ONE (16:05)
--- NOTE | 2019-11-30 16:48 | NUR ---
pt arrived to unit resp even and unlabored at this time no distress noted , right above the knee amputation, dressing clean dry and intact, pt arousal and and touch, call light in reach bed alarm on.
--- NOTE | 2019-11-30 17:19 | Diagnostic Imaging Report ---
EXAMINATION: CHEST SINGLE (PORTABLE) INDICATION: ^pulm edema ^[id number] ^[id number] COMPARISON: 11/27/2019 FINDINGS: AP view TUBES and LINES: None. LUNGS: Very limited study due to rotation. Pulmonary gastric congestion. Haziness of the most of the right lung. PLEURA: No visible pneumothorax. Small right pleural effusion. HEART AND MEDIASTINUM: The cardiomediastinal silhouette is enlarged. BONES AND SOFT TISSUES: No acute osseous lesion. Soft tissues are unremarkable. UPPER ABDOMEN: No free air under the diaphragm. IMPRESSION: Very Limited study. Pulmonary vascular congestion. Right lung haziness, representing edema and/or pneumonia. Small right pleural effusion. Signed by: Dr. Rafa Quintero MD on 11/30/2019 5:16 PM
[2019-11-30] MEDS: FUROSEMIDE 40 MG TAB PO SCH (18:07)
--- NOTE | 2019-11-30 18:47 | NUR ---
urine sent to lab.
[2019-11-30] MEDS ORDERED: SEVOFLURANE INHAL SOLN 250 ML PEN BTL ONE (19:15)
[2019-11-30] MEDS ORDERED: ETOMIDATE 2 MG/ML 10 ML INJ IV ONE (19:15)
[2019-11-30] MEDS ORDERED: PHENYLEPHRINE HCL 1% 10 MG/ML VIAL ONE (19:15)
--- NOTE | 2019-11-30 19:20 | Consultation ---
DATE OF CONSULTATION: 11/29/2019 Psychiatric consultation. REASON FOR CONSULTATION: To evaluate the patient's mood. HISTORY OF PRESENT ILLNESS: The patient is a 54-year-old female, admitted to the hospital for altered mental status. Psych consult for mood. The patient is well known to Psychiatry while she was at [facility]. She was following up there for her mood. As per record, the patient has history of acute kidney injury on chronic kidney disease, stage 4, anemia, metabolic acidosis, multiple resistant UTI, , peripheral vascular disease, pain issues, liver cirrhosis, portal hypertension. She has been consulted for possible amputation. has seen the patient and recommended amputation for her. Upon evaluation today, the patient found to be in the room. She is alert, awake, and oriented to situation. She reports feeling fair. She denies any depression. She is aware that she had a surgery tomorrow for foot amputation and she is okay with it, this will prevent any further ulceration. She denies any anxiety. Denies any feeling of hopelessness or helplessness. She denies any suicidal or homicidal ideation. She reports sleeping okay and eating okay. She claims that she refused medication, but will greens picker taking medication again. PAST PSYCHIATRIC HISTORY: She has history of depression. Denies past suicide attempt. Denies alcohol and drug use. FAMILY HISTORY: Unknown. SOCIAL HISTORY: The patient lives in [facility]. MENTAL STATUS EXAM: The patient is thin, middle-aged female. She is alert, awake, and oriented to situation. Her mood is fair. She denies any suicidal or homicidal ideation. She denies any hallucination. Thought process is concrete. No delusion elicited. Insight and judgment are fair. Memory appears to be grossly intact. CURRENT MEDICATIONS: 1. Sucralfate. 2. Neurontin 100 mg p.o. q.12 hours. 3. Sodium bicarbonate. 4. Ferrous sulfate. 5. Aspirin. 6. Ascorbic acid. 7. Levothyroxine. 8. Remeron 15 mg p.o. at bedtime. 9. Collagenase. 10. Meperidine. 11. Trazodone 50 mg p.o. at bedtime p.r.n. 12. Acetaminophen. 13. Furosemide. 14. Bisacodyl. 15. Ondansetron. 16. Hydralazine. 17. Sodium chloride. 18. [place]. CURRENT LABS: WBC 5.49, RBC 3.19, hemoglobin 9.1, hematocrit 30.5, platelets 72. Sodium 140, potassium 4.4, chloride 104, CO2 of 24, BUN 40, creatinine 2.19. AST 75, ALT 40. ASSESSMENT: 1. Adjustment disorder with mixed mood. 2. History of depression. PLAN: 1. Continue with Remeron 15 mg p.o. at bedtime. 2. Continue trazodone p.r.n. 3. Continue Neurontin 100 mg p.o. q.12 hours. 4. Encouraged compliance. Thank you for this consultation. Discussed with Case Management. Dictated by Jennifer Alvarez PA-C Gray Knott MD [facility]/MODL /[id number]
--- NOTE | 2019-11-30 19:28 | NUR ---
walking rounds complete, pt stable at shift change, bedside report given to on coming nurse.
--- NOTE | 2019-11-30 20:11 | Progress Note ---
DATE: 11/30/2019 SUBJECTIVE: The patient is sitting up in the middle of the bed, eating green beans. She appears very relaxed, in good spirits. She underwent a right tpebz-vye-wbbs amputation today. OBJECTIVE: VITAL SIGNS: Temperature and T-max of 98.9, heart rate 98, blood pressure 113/57, respirations 17, and oxygen saturation 96%. Intake and output, 960 mL in and 2535 mL out. GENERAL: Awake, alert, oriented, sitting in the middle of the bed. LUNGS: Clear to auscultation. Respirations unlabored on room air. HEENT: EOMI. NECK: Supple. CARDIOVASCULAR: Regular rate and rhythm without murmur. ABDOMEN: Positive bowel sounds. Soft, nontender. : Suprapubic catheter with yellow urine. EXTREMITIES: Right AKA incision covered with Kerlix dressing. Left AKA incision site with mervat with edges approximated, clean, dry, intact with minimal serosanguineous drainage. INTEGUMENTARY: Unstageable sacral decubitus ulcer with a small amount of eschar. NEUROLOGIC: GCS 15, nonfocal. MEDICATIONS: Reviewed. LABORATORY DATA: WBCs 4.54, hemoglobin 8, hematocrit 26.8, and platelets 61. Sodium 137, potassium 4.1, chloride 103, CO2 of 24, BUN 42, creatinine 2.21, GFR 23, glucose 88, and calcium 8.1. Total bilirubin 1.0, AST 51, ALT 30, alkaline phosphatase 528, total protein 5.9, and albumin 1.8. B-type natriuretic peptide 495. IMAGING DATA: Chest x-ray today with very limited study, pulmonary vascular congestion, right lung haziness representing edema and/or pneumonia, and small right pleural effusion. ASSESSMENT AND PLAN: 1. Severe bilateral aortoiliac-femoral peripheral arterial disease, severe multi-vessel coronary artery disease, status post left exhrr-ksg-sgcu amputation on 11/23/2019, status post right fieqo-zuv-wodj amputation on 11/30/2019. Overall, doing very well. The patient will need IV antibiotics and IV pain medication for a while. Case discussed with Dr. Hammond regarding best line placement type and location. Interventional Radiology consulted for IJ or subclavian central venous catheter placement. 2. Anemia, grade 1 esophageal varices, gastropathy, portal hypertension, and duodenal arteriovenous malformation, status post arteriovenous malformation fulguration. Hemoglobin of 8.0 and hematocrit of 26.8. Monitor hemoglobin and hematocrit. 3. Hepatitis C, cirrhosis with thrombocytopenia, elevated alkaline phosphatase. Monitor LFTs and platelet count. Alkaline phosphatase 528, was 701 on admission. Platelets 61 (72). 4. Renal calculi with history of stent. Urology following. The patient will need stone procedure and stent change at some point. 5. Chronic kidney disease, stage 4, estimated GFR 23. Nephrology following, not on hemodialysis. 6. Chronic obstructive pulmonary disease without exacerbation. Pulmonary following. The 11/29 chest x-ray results as above. 7. Hypothyroidism. Continue levothyroxine 100 mcg daily. 8. Anxiety/depression. Continue home medications, Remeron and trazodone. 9. End of life. Palliative care following. Has a psychiatry, body image disturbance, status post bilateral hdzys-bis-efzt amputations. DNR in place. Advanced directive was completed on 11/16. 10. Prophylaxis, Pepcid. Time spent 35 minutes. Billing code 12529. Dictated by Terrence Archibald NP MD [facility]/MEAGANL /[id number]
[2019-11-30] MEDS: MIRTAZAPINE 15 MG TAB PO SCH (21:10)
--- NOTE | 2019-11-30 21:13 | NUR ---
Dr. Medina paged to obtain orders for pain medication for patient. . New order received for Demerol 25 mg IV Q4H PRN.
--- NOTE | 2019-11-30 21:45 | NUR ---
Patient has no IV access. IV inserted in left forearm 22G. Patient tolerated well.
[2019-12-01] VITALS (16 sets, daily range): BP systolic 76–135; BP diastolic 38–86
[2019-12-01] MEDS: MEPERIDINE HCL INJ 25 MG/ML VIAL IV PRN ×4 (00:32→21:47)
[2019-12-01] MEDS: TRAZODONE HCL 50 MG TAB PO PRN (01:22)
--- NOTE | 2019-12-01 02:24 | NUR ---
Patient still in pain despite administration of Demerol [address] Medina notified. New order received for [place] 7.5 mg PO Q4H PRN.
[2019-12-01] MEDS: HYDROCODONE/APAP 7.5MG-325MG 1 EA TAB PO PRN (03:21)
[2019-12-01] MEDS: FUROSEMIDE 40 MG TAB PO SCH (06:13)
[2019-12-01] MEDS: LEVOTHYROXINE SODIUM 100 MCG TAB PO SCH (06:13)
--- NOTE | 2019-12-01 06:54 | NUR ---
Patient resting comfortably. No acute distress noted. Shift report given to oncoming nurse regarding patient's status.
--- NOTE | 2019-12-01 07:12 | NUR ---
UPON SHIFT CHANGE PT B/P 79/47, PT PUT IN [place], PT IS ALERT RESP EVEN, NO DISTRESS NOTED AT THIS TIME NO C/O PAIN WHEN ASKED, NO SOB, NO C/O OF CHEST PAIN, CALL LIGHT IN REACH, WILL CONT TO MONITOR.
[2019-12-01] MEDS: SUCRALFATE 1 GM TAB PO SCH ×4 (07:30→21:00)
--- NOTE | 2019-12-01 07:31 | NUR ---
CALL TO [facility], SPOKE WITH TUCKER, ORDERS GIVEN.
--- NOTE | 2019-12-01 07:45 | NUR ---
1 LITER NS BOLUS INFUSING AT THIS TIME. PT TOLERATING WELL.
--- NOTE | 2019-12-01 08:00 | NUR ---
pt b/o at this time 101/51 p 81, pt alert resp even and unlabored, pt talking, call light in reach, will cont to monitor.
[2019-12-01] MEDS ORDERED: SODIUM CHLORIDE 0.9% 1000ML 1,000 ML IV ONE (08:35)
[2019-12-01] MEDS: ASCORBIC ACID 500 MG TAB PO SCH ×2 (09:00→17:00)
[2019-12-01] MEDS: BALSAM PERU/CASTOR OIL 60 GM OINT...G. TP SCH (09:00)
[2019-12-01] MEDS: MEROPENEM 500MG/ NS 50ML 50 ML IV SCH (09:00)
[2019-12-01] MEDS: COLLAGENASE OINTMENT 30 GM TUBE TP SCH (09:00)
[2019-12-01] MEDS: FERROUS SULFATE 325 MG TAB PO SCH ×2 (09:00→17:00)
[2019-12-01] MEDS: SODIUM BICARBONATE 650 MG TAB PO SCH ×2 (09:00→17:00)
[2019-12-01] MEDS: FAMOTIDINE 20 MG/2 ML VIAL IV SCH ×2 (09:00→17:30)
--- NOTE | 2019-12-01 09:43 | NUR ---
S/P SECOND [facility]A ACUTE REHAB EVAL ORDERS PT EVAL ORDERED FOR TRANSFERS
--- NOTE | 2019-12-01 10:16 | NUR ---
WENT TO SPEAK WITH PT ABOUT THE REHAB REFERRAL, SHE IS MEDICATED AND UNABLE TO WAKE UP ENOUGH TO MAKE A CHOICE AT THIS TIME.
[2019-12-01 10:26] LABS: BASOPHILS % 0.6 % (0.0-1.0); EOSINOPHILS # (AUTO) 0.1 (0.0-0.4); EOSINOPHILS % 1.5 % (0.0-6.0); LYMPHOCYTES # (AUTO) 1.5 (1.0-3.2); LYMPHOCYTES % 31.8 % (18.0-39.1); MEAN CORPUSCULAR HEMOGLOBIN 28.7 pg (28-32); MEAN CORPUSCULAR HGB CONC 30.3 g/dL (31-35); MEAN CORPUSCULAR VOLUME 94.8 fL (81-99); MONOCYTES # (AUTO) 0.5 (0.2-0.8); MONOCYTES % 10.4 % (4.4-11.3); NEUTROPHILS # (AUTO) 2.7 (2.1-6.9); NEUTROPHILS % 55.5 % (38.7-80.0); PLATELET COUNT 50 x10e3/uL (140-360); RED CELL DISTRIBUTION WIDTH 15.8 % (11.7-14.4)
[2019-12-01] MEDS ORDERED: SODIUM CHLORIDE 0.9% 500ML 500 ML ONE (10:42)
[2019-12-01 10:49] LABS: ANION GAP 11.1 mmol/L (8-16); CALCIUM 7.3 mg/dL (8.4-10.2); CREATININE, SERUM 2.33 mg/dL (0.57-1.11); POTASSIUM 4.1 mmol/L (3.5-5.1)
--- NOTE | 2019-12-01 10:50 | NUR ---
pt b/p low at this time 70\39, charge nurse notified , and Terrence here and notified, orders given for 2 units of PRBC's and platelets done.
[2019-12-01 11:05] LABS: HEMATOCRIT 21.8 % (34.2-44.1); HEMOGLOBIN 6.6 g/dL (12.0-16.0)
--- NOTE | 2019-12-01 11:10 | NUR ---
pt having cxr at this time.
[2019-12-01] MEDS ORDERED: FUROSEMIDE INJ 10 MG/ML 2 ML VIAL IV PRN (11:15)
--- NOTE | 2019-12-01 11:25 | NUR ---
Dr. Knott here also notified of pt condition and gave him information on pt.
--- NOTE | 2019-12-01 11:47 | Progress Note ---
DATE: SUBJECTIVE: The patient has been evaluated. Available labs and notes reviewed. Discussed with Dr. Black and discussed with staff. REVIEW OF SYSTEMS: Unable to obtain review of systems. The patient was medicated for pain and seems to be comfortable in bed, in no acute distress. Discussed with the nurse stating that the patient is doing well since the other leg was amputated yesterday. PHYSICAL EXAMINATION: VITAL SIGNS: Temperature 100.2, pulse 96, respirations 20, and blood pressure 104/75. GENERAL: Comfortable in bed, in no acute distress. CV: S1, S2. CHEST: Equal expansion. Decreased breath sounds, in no acute distress. ABDOMEN: Soft, no distention. Positive bowel sounds. HEENT: Moist. No pallor. No JVD. EXTREMITIES: Now status post bilateral AKA, on local care. MEDICATIONS/ANTIBIOTICS: The patient is on Merrem. LABORATORY STUDIES: No new CBC or BMP available, with a BNP improved from 2075 to 495. Serology, no new serology studies. Microbiology, urine culture is pending. IMAGING DATA: Chest x-ray from yesterday was very limited study with pulmonary vascular congestion and right lung haziness, representing edema and/or pneumonia, small right pleural effusion. ASSESSMENT AND PLAN: 1. Venous congestion of bilateral lower extremities. 2. Venous ulcers with infection of bilateral lower extremities. 3. Renal failure. 4. Arteriovenous malformation of duodenum on GI scope. 5. Hepatitis C. 6. Hepatic cirrhosis. 7. Chronic pain of bilateral lower extremities. 8. Peripheral neuropathy. 9. Severe debility. The patient is now bilateral AKA. Continue with the wound care. The patient on 100.2 T-max this morning at 07:35. Remains on meropenem. Urine culture is in progress and chest x-ray as mentioned above. Discussed with Dr. Black in detail. Please refer to chart for more information. Dictated by Jules Miner PA-C (Al) Vlima Black MD /MODL /[id number]
--- NOTE | 2019-12-01 11:54 | NUR ---
pt off unit for procedure, tunnel catheter placement.
--- NOTE | 2019-12-01 12:13 | Progress Note ---
DATE: 12/01/2019 Nephrology Follow Up Note SUBJECTIVE: The patient is sleeping. Post bilateral BKAs. According to RN, she has not been short of breath. Eating and drinking well. OBJECTIVE: VITAL SIGNS: Blood pressure 104/71, pulse 96 per minute, room air saturation 97%. NECK: No JVP. RESPIRATORY: Breathing symmetrically without distress. CARDIOVASCULAR: S1, S2. ABDOMEN: Appears nondistended. EXTREMITIES: Bilateral BKA. NEUROLOGIC: Sleeping presently. LABORATORY DATA: Hemoglobin down to 6.6 today, awaiting transfusion. Creatinine 2.3, BUN 41, EGFR 22. Electrolytes normal. BNP down to 907, from 2075 three days ago. Chest x-ray from yesterday reported. ASSESSMENT: 1. Acute kidney injury, improved. 2. Chronic kidney disease stage 4. 3. Anemia secondary to chronic kidney disease. Current drop in hemoglobin related to surgery. 4. Fluid overload/right-sided heart failure. Much improved with IV Lasix. Now switched to oral. 5. Metabolic acidosis, stable on sodium bicarbonate tablets. PLAN: RECOMMENDATIONS: 1. Continue Lasix 40 mg p.o. b.i.d. 2. Continue supportive treatment. 3. Continue to monitor renal function and electrolytes. 4. Agree with transfusion of packed red blood cells. Diogenes Porras MD [facility]/MODL /[id number]
[2019-12-01] MEDS ORDERED: MIDAZOLAM HCL 2 MG/2 ML VIAL ONE (12:15)
[2019-12-01] MEDS ORDERED: FENTANYL CITRATE/PF 100MCG/2 ML INJ ONE (12:15)
--- NOTE | 2019-12-01 12:20 | NUR ---
report given to ICU nurse SABINE Bowman
--- NOTE | 2019-12-01 12:25 | Diagnostic Imaging Report ---
EXAMINATION: CHEST SINGLE (PORTABLE) INDICATION: Altered mental status, aspiration COMPARISON: Chest radiograph of 11/28/2019 FINDINGS: The patient is left rotated. LINES/TUBES:EKG leads overlie the chest. LUNGS:The lungs are moderately inflated. Increasing bilateral hazy airspace opacities. PLEURA:No pleural effusion or pneumothorax. MEDIASTINUM:Cardiomediastinal silhouette is stably enlarged. BONES/SOFT TISSUES:No acute osseous injury. ABDOMEN:No free air under the diaphragm. IMPRESSION: Cardiomegaly and increasing bilateral interstitial and airspace opacities, more likely representing edema than aspiration or pneumonia. Signed by: Isael Galeana MD on 12/01/2019 12:22 PM
[2019-12-01] MEDS ORDERED: SODIUM CHLORIDE 0.9% 250ML 250 ML IV ONE (12:30)
[2019-12-01] MEDS ORDERED: SODIUM CHLORIDE 0.9% 250ML 250 ML ONE (14:08)
[2019-12-01] MEDS ORDERED: NOREPINEPHRINE 8 MG/D5W 250 ML 250 ML ONE (14:08)
[2019-12-01] MEDS ORDERED: VANCOMYCIN 1GM/NS 250 ML 250 ML IV ONE (14:30)
[2019-12-01] MEDS: NOREPINEPHRINE INJ 4MG/4ML 8 MG in DEXTROSE 5% 250ML 250 ML IV SCH ×2 (16:00→16:30)
--- NOTE | 2019-12-01 16:30 | Diagnostic Imaging Report ---
PROCEDURE: Tunneled central venous catheter placement Procedural Personnel Attending physician(s): Isael Galeana MD Fellow physician(s): None Resident physician(s): None Advanced practice provider(s): None Pre-procedure diagnosis: Altered mental status Post-procedure diagnosis: Same Indication: Intravenous fluid administration, intravenous medications Additional clinical history: Poor venous access Complications: No immediate complications. IMPRESSION: Insertion of right-sided dual-lumen tunneled Proline power-injectable catheter, with tip in the expected location of the cavoatrial junction. Plan: The catheter may be used immediately. PROCEDURE SUMMARY: - Venous access with ultrasound guidance - Tunneled central venous catheter insertion with fluoroscopic guidance - Additional procedure(s): None PROCEDURE DETAILS: Pre-procedure Consent: Informed consent for the procedure including risks, benefits and alternatives was obtained and time-out was performed prior to the procedure. Preparation (MIPS): The site was prepared and draped using all elements of maximal sterile barrier technique including sterile gloves, sterile gown, cap, mask, large sterile sheet, sterile ultrasound probe cover, hand hygiene and cutaneous antisepsis with 2% chlorhexidine. Medical reason for site preparation exception (MIPS): Not applicable Anesthesia/sedation Level of anesthesia/sedation: Moderate sedation (conscious sedation) 0.5mg Versed, 25mcg Fentanyl Anesthesia/sedation administered by: Independent trained observer under attending supervision with continuous monitoring of the patient?s level of consciousness and physiologic status Total intra-service sedation time (minutes): 30 Access Local anesthesia was administered. The vessel was sonographically evaluated and determined to be patent. Real time ultrasound was used to visualize needle entry into the vessel and a permanent image was stored. Vein accessed: Internal jugular vein Access technique: Micropuncture set with 21 gauge needle Catheter placement An incision was made near the venous access site and the catheter was tunneled subcutaneously to the venous access site and trimmed to appropriate length. The catheter was advanced via a peel-away sheath into the vein under fluoroscopic guidance. Catheter tip location was fluoroscopically verified and a permanent image was stored. Catheter placed: [employer] Proline Catheter size (Jordanian): 6 Catheter flush: Normal saline Closure A sterile dressing was applied. Access site closure technique: Tissue adhesive Catheter securement technique: Non-absorbable suture Radiation Dose Fluoroscopy time (minutes): 0.2 Reference air kerma (mGy): 2.1 Additional Details Additional description of procedure: None Equipment details: None Specimens removed: None Estimated blood loss (mL): Less than 10 Standardized report: [email or web address] Attestation Signer name: Isael Galeana MD I attest that I was present for the entire procedure. I reviewed the stored images and agree with the report as written. Signed by: Isael Galeana MD on 12/01/2019 4:26 PM
--- NOTE | 2019-12-01 17:09 | Progress Note ---
DATE: SUBJECTIVE: The patient is status post AKA on the contralateral side yesterday. Apparently, she was more hypotensive this morning. She also had a blood count of 6.6. She was subsequently transferred to the intensive care unit. Her antibiotics were escalated to vancomycin and meropenem. She is currently awaiting packed red blood cells. PHYSICAL EXAMINATION: VITAL SIGNS: The blood pressure is now 77/40. The heart rate is 78 and the saturation is 96%. HEENT: No facial swelling or erythema. CARDIAC: Regular rate and rhythm with normal S1 and S2. LUNGS: Auscultation of the lungs shows decreased breath sounds at the bases. There is no wheezing. ABDOMEN: Soft, nontender. There is no rebound or guarding. There is a wound in the gluteal area on the right side that appears to be a stage 3-4 ulceration. EXTREMITIES: She also has bilateral above the knee amputations. The right wound is bandaged with an Anam bandage. The left wound is clean without drainage. LABORATORY DATA: White blood cell count is 4.8 and hemoglobin is 6.6. The platelet count is . The BUN to creatinine ratio is 41 to 2.33. The other electrolytes are within normal limits. IMPRESSION: 1. Anemia secondary to chronic blood loss. 2. Cirrhosis and chronic liver disease. 3. Chronic renal failure stage 3. 4. Soft tissue wounds and associated sepsis. 5. History of rectus hematoma that required drainage. 6. History of obstructive uropathy from nephrolithiasis. 7. Hypothyroidism. PLAN: 1. The patient will receive packed red blood cells. 2. Temporary use of Levophed until packed red cells are available. 3. Intravenous fluids. 4. Continue current antibiotics. 5. Wound care. 6. Prognosis is poor. 7. The patient is DNR. 8. Case discussed with Nursing, Internal Medicine, and patient. Greater than 35 minutes in direct critical care time. Dalton Dill MD [facility] /[id number]
--- NOTE | 2019-12-01 18:30 | NUR ---
2nd unit of prbc given. pt tolerated transfusions
--- NOTE | 2019-12-01 18:39 | Progress Note ---
DATE: 12/01/2019 Psychiatric Progress Note SUBJECTIVE: The patient was evaluated and events noted. The patient is in the room. She had amputation recently. She is drowsy. Blood pressure is low currently 77/38. She is getting IV fluid and unit of blood as per her nurse. She is drowsy and not interested in answering any question. She is not combative, agitated. She received Remeron and p.r.n. trazodone last night. MEDICATION: Reviewed. ASSESSMENT: 1. Adjustment disorder, mixed mood. 2. History of depression. PLAN: 1. Discontinue Remeron. 2. Discontinue trazodone p.r.n. 3. Discontinue Neurontin. 4. Monitor for mood. 5. Discussed with nurse. Dictated by Jennifer Alvarez PA-C MD [facility]/KENAN /[id number]
--- NOTE | 2019-12-01 20:45 | Progress Note ---
DATE: Ms. Leach is currently in the intensive care unit. Events noted. Discussed with Internal Medicine. Please refer to orders. We will follow. Please refer to initial note on the chart. MD TULIO Jesus/KENAN /[id number]
[2019-12-01 20:47] LABS: BASOPHILS % 0.4 % (0.0-1.0); EOSINOPHILS # (AUTO) 0.1 (0.0-0.4); EOSINOPHILS % 1.3 % (0.0-6.0); HEMATOCRIT 30.4 % (34.2-44.1); HEMOGLOBIN 9.3 g/dL (12.0-16.0); LYMPHOCYTES # (AUTO) 1.5 (1.0-3.2); LYMPHOCYTES % 21.7 % (18.0-39.1); MEAN CORPUSCULAR HEMOGLOBIN 27.7 pg (28-32); MEAN CORPUSCULAR HGB CONC 30.6 g/dL (31-35); MEAN CORPUSCULAR VOLUME 90.5 fL (81-99); MONOCYTES # (AUTO) 0.7 (0.2-0.8); NEUTROPHILS # (AUTO) 4.4 (2.1-6.9); NEUTROPHILS % 66.2 % (38.7-80.0); PLATELET COUNT 67 x10e3/uL (140-360); RED BLOOD COUNT 3.36 x10e6/uL (3.6-5.1)
--- NOTE | 2019-12-01 23:30 | Progress Note ---
DATE: 12/01/2019 Cardiology Progress Note SUBJECTIVE: The patient was noted to develop hypotension earlier today and found to be anemic with a hemoglobin of 6.6. Due to these developments, she was transferred to the ICU and started on Levophed. Two units PRBCs have been transfused and the patient has undergone placement of a tunneled central line by Interventional Radiology. On examination, the patient is somnolent and no further history could be obtained. OBJECTIVE: VITAL SIGNS: Temperature 98.5, pulse 87, respiratory rate 18, blood pressure 120/60, oxygen 93% on room air. GENERAL: Chronically ill-appearing woman, somnolent, in no acute distress. LUNGS: Clear to auscultation anterior lung quinones. No wheezes or crackles. CARDIOVASCULAR: Normal rate, regular rhythm. No murmur. ABDOMEN: Soft, nontender. EXTREMITIES: Status post bilateral AKA. CARDIAC MEDICATIONS: 1. Levophed 2 mcg/minute. 2. Levothyroxine 100 mcg p.o. daily. LABORATORY DATA: WBC 6.68, hemoglobin 9.3, hematocrit 30.4, platelets 67. Sodium 139, potassium 4.1, chloride 107, CO2 of 25, BUN 41, and creatinine 2.33. TELEMETRY: Personally reviewed and interpreted revealing normal sinus rhythm. IMPRESSION: 1. Acute anemia. 2. Hypotension. 3. Suspect sepsis. 4. Arterial disease with severe bilateral aortoiliac and femoral disease, status post bilateral above-knee amputation. 5. Multivessel coronary artery disease. 6. Hepatitis C, cirrhosis. 7. Chronic kidney disease. 8. Chronic obstructive pulmonary disease. RECOMMENDATIONS: Continue supportive care. Antibiotics per Infectious Disease. Continue wound care. The patient's prognosis is poor given suspected sepsis. Cautious fluid resuscitation. Monitor volume status closely. Thank you for this consult. We will continue to follow. Cathy Rinaldi MD [facility]/MODL /[id number]
[2019-12-02] VITALS (23 sets, daily range): BP systolic 60–119; BP diastolic 48–98
[2019-12-02] MEDS: MEPERIDINE HCL INJ 25 MG/ML VIAL IV PRN ×5 (02:20→23:00)
--- NOTE | 2019-12-02 03:31 | Progress Note ---
DATE: 12/01/2019 SUBJECTIVE: The patient is sitting up in bed, smiling, and waving. She is seen in ICU bed, 194. She was noted to be hypotensive this morning. Right IJ central line was placed by Interventional Radiology. She was transferred to the ICU, received 2 units of blood. OBJECTIVE: VITAL SIGNS: Earlier this morning, temperature 98.9, pulse 78, blood pressure 77/38, respirations 16, oxygen saturation 96%. More recent vital signs include temperature 98.9, heart rate 85, respirations 20, blood pressure 95% on room air. Intake and output inaccurately recorded. GENERAL: Awake, alert, and oriented. LUNGS: Respirations unlabored. HEENT: EOMI. NECK: Supple. CARDIOVASCULAR: Regular rate and rhythm. No murmur. ABDOMEN: Positive bowel sounds. Soft, nontender. : Suprapubic catheter with yellow urine. EXTREMITIES: Right AKA incision covered with Kerlix dressing. Left AKA incision site open air with mevrat intact and edges approximated, clean and dry with minimal serosanguineous drainage. INTEGUMENTARY: Unstageable sacral decubitus ulcer. NEUROLOGICAL: GCS 15. Nonfocal. MEDICATIONS: Reviewed. LABORATORY DATA: WBC 4.81, hemoglobin 6.6, hematocrit 21.8, and platelets 50 at about 10:20, this morning. Subsequently, WBC 6.68, hemoglobin 9.3, hematocrit 30.4, platelets 67 about 2040 hours. Sodium 139, potassium 4.1, chloride 107, CO2 25, BUN 41, creatinine 2.33, estimated GFR 22, glucose 107, calcium 7.3. B-type natriuretic peptide 907.8. Blood cultures x2 collected today. IMAGING STUDIES: Chest x-ray around at 11:15, this morning, showed cardiomegaly and increasing bilateral interstitial and airspace opacities more or likely representing edema than aspiration or pneumonia. Procedures, status post insertion of a right-sided dual lumen tunneled Pro-Line power injectable internal jugular catheter with tip in the expected location of the cavoatrial junction. ASSESSMENT AND PLAN: 1. Severe bilateral aortoiliac-femoral peripheral arterial disease, now status post left vjumg-uue-thtp amputation on 11/23/2019, status post right vdtnp-dgx-nflc amputation on 11/30/2019. Right IJ line placed today for continued IV antibiotics. Blood products, fluids, pain medication, and lab draws. 2. Severe anemia with hemoglobin 6.6, two units of blood administered today, status post arteriovenous malformation fulguration. Monitor H and H. 3. Severe hypotension with suspected sepsis. Vancomycin 1 g IV once today with random vancomycin trough in the morning. Continue meropenem. Levophed 2 mcg/kg/min in present. Wean as tolerated. 4. Hepatitis C, cirrhosis with thrombocytopenia, elevated alkaline phosphatase. Monitor LFTs and platelet count. One unit of platelets ordered earlier today around 11:00 a.m., does not appear this has been given yet. 5. Renal calculi with history of stent. Urology following. The patient will need stone procedure and stent change at some point. 6. Chronic kidney disease, stage 4. Monitor GFR, Nephrology following, not on hemodialysis. 7. Chronic obstructive pulmonary disease without exacerbation. Pulmonology following. 11/30, chest x-ray results as above. 8. Hypothyroidism. Continue levothyroxine 100 mcg daily. 9. Anxiety/depression. Continue home medications, Remeron, and trazodone. 10. End of life. Palliative care following. Psychiatry following. Probable body image disturbance, status post bilateral rjlvd-hld-xpdz amputations. DNR in place. Advance directive was completed on 11/16. 11. Prophylaxis. Pepcid. Time spent 45 minutes. Billing code [id number]. Dictated by Terrence Archibald NP MD [facility]/MODL /[id number]
[2019-12-02 04:59] LABS: ANION GAP 13.2 mmol/L (8-16); CALCIUM 7.9 mg/dL (8.4-10.2); CREATININE, SERUM 2.32 mg/dL (0.57-1.11); POTASSIUM 4.2 mmol/L (3.5-5.1)
[2019-12-02 05:00] LABS: BASOPHILS % 0.5 % (0.0-1.0); EOSINOPHILS # (AUTO) 0.1 (0.0-0.4); EOSINOPHILS % 1.1 % (0.0-6.0); HEMATOCRIT 30.7 % (34.2-44.1); HEMOGLOBIN 9.3 g/dL (12.0-16.0); LYMPHOCYTES # (AUTO) 1.4 (1.0-3.2); LYMPHOCYTES % 22.3 % (18.0-39.1); MEAN CORPUSCULAR HGB CONC 30.3 g/dL (31-35); MEAN CORPUSCULAR VOLUME 92.5 fL (81-99); MONOCYTES # (AUTO) 0.5 (0.2-0.8); MONOCYTES % 8.5 % (4.4-11.3); NEUTROPHILS # (AUTO) 4.3 (2.1-6.9); NEUTROPHILS % 67.4 % (38.7-80.0); RED BLOOD COUNT 3.32 x10e6/uL (3.6-5.1)
[2019-12-02] MEDS: LEVOTHYROXINE SODIUM 100 MCG TAB PO SCH (05:19)
[2019-12-02 05:24] LABS: PLATELET COUNT 62 x10e3/uL (140-360)
[2019-12-02] MEDS: SUCRALFATE 1 GM TAB PO SCH ×4 (07:30→21:17)
[2019-12-02] MEDS: FERROUS SULFATE 325 MG TAB PO SCH ×2 (09:31→16:40)
[2019-12-02] MEDS: ASCORBIC ACID 500 MG TAB PO SCH ×2 (09:31→16:40)
[2019-12-02] MEDS: BALSAM PERU/CASTOR OIL 60 GM OINT...G. TP SCH (09:31)
[2019-12-02] MEDS: MEROPENEM 500MG/ NS 50ML 50 ML IV SCH (09:31)
[2019-12-02] MEDS: FAMOTIDINE 20 MG/2 ML VIAL IV SCH ×2 (09:31→16:40)
[2019-12-02] MEDS: SODIUM BICARBONATE 650 MG TAB PO SCH ×2 (09:31→16:40)
[2019-12-02] MEDS: COLLAGENASE OINTMENT 30 GM TUBE TP SCH (09:31)
[2019-12-02] MEDS ORDERED: VANCOMYCIN 1GM/NS 250 ML 250 ML IV ONE (12:00)
[2019-12-02] MEDS: NOREPINEPHRINE INJ 4MG/4ML 8 MG in DEXTROSE 5% 250ML 250 ML IV SCH (14:00)
[2019-12-02] MEDS ORDERED: ALBUMIN 25% 25GM 100ML 0.25 GM/ML BTL IV ONE (15:30)
--- NOTE | 2019-12-02 16:13 | Progress Note ---
DATE: 12/02/2019 Cardiology Progress Note. SUBJECTIVE: The patient is more awake today. She denies chest pain or shortness of breath. She remains on Levophed 1 mcg/minute. OBJECTIVE: VITAL SIGNS: Temperature 99.7 degrees, pulse 80, respiratory rate 20, blood pressure 103/64, and oxygen saturation 96% on room air. GENERAL: Awake, alert, in no acute distress. Chronically ill-appearing woman. LUNGS: Clear to auscultation bilaterally. No wheezes or crackles. CARDIOVASCULAR: Normal rate and regular rhythm. No murmur. Normal S1, S2. ABDOMEN: Soft and nontender. EXTREMITIES: Status post bilateral AKA. CARDIAC MEDICATIONS: 1. Levophed. 2. Levothyroxine 100 mcg p.o. daily. LABORATORY DATA: WBC 6.33, hemoglobin 9.3, hematocrit 30.7, platelets 62. Sodium 141, potassium 4.2, chloride 108, CO2 of 24, BUN 37, and creatinine 2.32. Telemetry was personally reviewed and interpreted revealing normal sinus rhythm. IMPRESSION: 1. Acute anemia. 2. Hypotension suspect sepsis. 3. Peripheral arterial disease with severe bilateral aortoiliac and femoral disease status post bilateral AKA. 4. Multivessel coronary artery disease. 5. Hepatitis C cirrhosis. 6. Chronic kidney disease. 7. Chronic obstructive pulmonary disease. RECOMMENDATIONS: Continue supportive care. Antibiotics per Infectious Disease. Monitor volume status closely. Continue wound care. The patient's prognosis is poor. Thank you for this consult. We will continue to follow. Cathy Rinaldi MD [facility]/MODL /[id number]
--- NOTE | 2019-12-02 16:53 | Progress Note ---
DATE: SUBJECTIVE: The patient is more awake and more alert. She received 2 units of packed red blood cells yesterday. Her pain is well controlled. PHYSICAL EXAMINATION: VITAL SIGNS: The blood pressure is 117/94, her saturation is 96%. HEENT: No facial swelling or erythema. CARDIAC: Reveals regular rate and rhythm with normal S1 and S2. LUNGS: Auscultation of the lungs shows decreased breath sounds at the bases. There is no wheezing. ABDOMEN: Soft, nontender. There is no rebound or guarding. EXTREMITIES: Examination of the extremities shows bilateral zmkfp-dnm-nbtd amputations. There is decubitus wound on the right gluteal area. LABORATORY DATA: The BUN to creatinine ratio is 37 to 2.32. Other electrolytes are within normal limits. The white blood cell count is 6.3 and hemoglobin is 9.3. The platelet count is 62,000. IMPRESSION: 1. Cirrhosis and chronic liver disease. 2. Status post bilateral bsgfe-icj-rnhr amputations. 3. Anemia secondary to chronic blood loss. 4. Chronic renal failure, stage III. 5. Hypothyroidism. 6. Decubitus ulcer. PLAN: 1. Transfer out of intensive care unit. 2. Continue current antibiotics. 3. Wound care. 4. Pain control. Dalton Dill MD [facility]/KENAN /[id number]
[2019-12-02] MEDS: HYDROCODONE/APAP 7.5MG-325MG 1 EA TAB PO PRN (22:18)
[2019-12-03] VITALS (24 sets, daily range): BP systolic 82–117; BP diastolic 55–90
[2019-12-03] MEDS: MEPERIDINE HCL INJ 25 MG/ML VIAL IV PRN (03:53)
[2019-12-03 04:54] LABS: BASOPHILS % 0.7 % (0.0-1.0); EOSINOPHILS # (AUTO) 0.3 (0.0-0.4); EOSINOPHILS % 4.9 % (0.0-6.0); HEMATOCRIT 29.3 % (34.2-44.1); HEMOGLOBIN 8.9 g/dL (12.0-16.0); LYMPHOCYTES # (AUTO) 1.5 (1.0-3.2); LYMPHOCYTES % 25.1 % (18.0-39.1); MEAN CORPUSCULAR HEMOGLOBIN 27.6 pg (28-32); MEAN CORPUSCULAR HGB CONC 30.4 g/dL (31-35); MEAN CORPUSCULAR VOLUME 90.7 fL (81-99); MONOCYTES # (AUTO) 0.6 (0.2-0.8); MONOCYTES % 10.4 % (4.4-11.3); NEUTROPHILS # (AUTO) 3.4 (2.1-6.9); NEUTROPHILS % 58.7 % (38.7-80.0); PLATELET COUNT 61 x10e3/uL (140-360); RED BLOOD COUNT 3.23 x10e6/uL (3.6-5.1); RED CELL DISTRIBUTION WIDTH 15.9 % (11.7-14.4)
[2019-12-03 05:08] LABS: ANION GAP 12.8 mmol/L (8-16); CALCIUM 7.7 mg/dL (8.4-10.2); CREATININE, SERUM 2.08 mg/dL (0.57-1.11); MAGNESIUM 1.9 MG/DL (1.3-2.1); POTASSIUM 3.8 mmol/L (3.5-5.1)
[2019-12-03] MEDS: HYDROCODONE/APAP 7.5MG-325MG 1 EA TAB PO PRN ×3 (05:49→19:26)
[2019-12-03] MEDS: LEVOTHYROXINE SODIUM 100 MCG TAB PO SCH (05:53)
[2019-12-03] MEDS: FAMOTIDINE 20 MG/2 ML VIAL IV SCH ×2 (07:58→17:03)
[2019-12-03] MEDS: ASCORBIC ACID 500 MG TAB PO SCH ×2 (07:58→17:03)
[2019-12-03] MEDS: BALSAM PERU/CASTOR OIL 60 GM OINT...G. TP SCH (07:58)
[2019-12-03] MEDS: COLLAGENASE OINTMENT 30 GM TUBE TP SCH (07:58)
[2019-12-03] MEDS: MEROPENEM 500MG/ NS 50ML 50 ML IV SCH (07:58)
[2019-12-03] MEDS: SODIUM BICARBONATE 650 MG TAB PO SCH ×2 (07:58→17:03)
[2019-12-03] MEDS: SUCRALFATE 1 GM TAB PO SCH ×4 (07:58→22:01)
[2019-12-03] MEDS: FERROUS SULFATE 325 MG TAB PO SCH ×2 (07:58→17:03)
[2019-12-03] MEDS ORDERED: MORPHINE SULFATE INJ 4 MG/ML INJ 1ML IV PRN ×2 (11:00→23:15)
[2019-12-03] MEDS: MIDODRINE 2.5 MG TAB PO SCH ×2 (11:41→17:03)
--- NOTE | 2019-12-03 12:51 | Progress Note ---
DATE: SUBJECTIVE: The patient has some pain in her right leg from the surgery. She received some pain medication yesterday. Her blood pressure was low and she required some Levophed overnight. She is now off the Levophed. PHYSICAL EXAMINATION: VITAL SIGNS: The patient is afebrile. The blood pressure is 96/67 and the pulse is 73. HEENT: Shows no facial swelling or erythema. CARDIAC: Reveals regular rate and rhythm with normal S1 and S2. LUNGS: Auscultation of lungs reveals clear breath sounds bilaterally. There is no wheezing. ABDOMEN: Soft and nontender. There is no rebound or guarding. EXTREMITIES: Shows no leg edema. There is a bilateral xepqw-gwd-yixj amputation. LABORATORY DATA: White blood cell count is 5.77 and the hemoglobin is 8.9. The platelet count is 61. BUN to creatinine ratio is 36 to 2.08. Other electrolytes are within normal limits. IMPRESSION: 1. Severe peripheral vascular disease, requiring tjyud-pig-ceuf amputations. 2. Cirrhosis and portal hypertension. 3. Anemia secondary to chronic blood loss. 4. Chronic renal failure, stage 4. 5. Chronic obstructive pulmonary disease. 6. Hypothyroidism. PLAN: 1. Continue pain control. 2. Maintain off Levophed. 3. Provided the patient is hemodynamically stable, she can transfer to floor. 4. Continue to monitor renal function. 5. Wound care. 6. Physical therapy. Dalton Dill MD [facility]/MODL /[id number]
[2019-12-03] MEDS: NOREPINEPHRINE INJ 4MG/4ML 8 MG in DEXTROSE 5% 250ML 250 ML IV SCH (14:00)
--- NOTE | 2019-12-03 15:32 | Progress Note ---
DATE: 12/03/2019 Nephrology Progress Note SUBJECTIVE: The patient was transferred to ICU last night for hypotension. Vasopressors are now being tapered off. She is alert and oriented, sitting up and eating. OBJECTIVE: VITAL SIGNS: Blood pressure 110/62, pulse 76 per minute, and oxygen saturation greater than 90% on room air. NECK: Supple without jugular venous distention. CHEST: Bilateral symmetrical air entry. No respiratory distress. CARDIOVASCULAR: Shows S1 and S2. ABDOMEN: Soft and nondistended. EXTREMITIES: Without pitting edema or cyanosis. NEUROLOGICAL: Alert and oriented x3. LABORATORY DATA: Hemoglobin 8.9. Normal white counts. Platelets remain low at 61,000. Sodium 133. Rest of the electrolytes are normal. Creatinine stable at 2.08 and BUN 36. Total calcium 7.7 and magnesium 1.9. Last BNP was 907 two days ago. IMPRESSION: 1. Acute kidney injury, staying resolved. 2. Chronic kidney disease, stage 4. 3. Anemia secondary to chronic kidney disease. Current hemoglobin acceptable. 4. Fluid overload/right-sided heart failure, much improved with IV Lasix. Oral Lasix on hold, presumably because of overnight hypotension. 5. Metabolic acidosis, controlled on oral sodium bicarbonate. RECOMMENDATIONS: 1. Resume p.o. Lasix once the patient is off pressors and blood pressure is deemed stable. 2. Continue supportive treatment. 3. Continue to monitor renal function and electrolytes regularly. Diogenes Porras MD [facility]/MODL /[id number]
--- NOTE | 2019-12-03 16:22 | Progress Note ---
DATE: SUBJECTIVE: Ms. Leach remains in Intensive Care Unit. She was on vasopressors yesterday, but today she is off vasopressors. She has no complaint. REVIEW OF SYSTEMS: HEENT: Negative. PULMONARY: Negative. CARDIAC: Negative. PHYSICAL EXAMINATION: GENERAL: She is currently alert and oriented, does not seem to be in acute distress. VITAL SIGNS: Stable, currently afebrile. HEENT: Not icteric. NECK: Supple. CHEST: Clear. ABDOMEN: Soft. IMPRESSION: 1. Peripheral vascular disease. 2. Status post nfusp-dok-cvah amputation. 3. Liver cirrhosis. 4. History of urinary tract infection. 5. History of intraabdominal pelvic abscess, stable from Infectious Disease point of view. 6. Hepatitis C, currently stable, on meropenem daily. 7. End-stage renal disease, on hemodialysis. PLAN: We will reassess and finish 14 days of meropenem for UTI. MD TULIO Jesus/KENAN /[id number]
--- NOTE | 2019-12-03 21:13 | Progress Note ---
DATE: 12/03/2019 Cardiology Progress Note SUBJECTIVE: The patient denies chest pain or shortness of breath. She is now off Levophed. OBJECTIVE: VITAL SIGNS: Temperature 98.5 degrees, pulse 73, respiratory rate is 16, blood pressure 101/50, and oxygen saturation 98% on room air. GENERAL: Chronically ill-appearing woman, awake and alert, in no acute distress. LUNGS: Clear to auscultation bilaterally. No wheezes or crackles. CARDIOVASCULAR: Normal rate, regular rhythm. No murmur. Normal S1 and S2. ABDOMEN: Soft and nontender. EXTREMITIES: Status post bilateral AKA. CARDIAC MEDICATIONS: Midodrine 5 mg p.o. t.i.d. and levothyroxine 100 mcg p.o. daily. LABORATORY DATA: WBC 5.77, hemoglobin 8.9, hematocrit 29.3, and platelets 61. Sodium 133, potassium 3.8, chloride 101, CO2 of 23, BUN 36, and creatinine 2.08. Telemetry personally reviewed and interpreted revealing normal sinus rhythm. IMPRESSION: 1. Acute anemia. 2. Hypotension, suspect sepsis. 3. Peripheral arterial disease with severe bilateral aortoiliac and femoral disease status post bilateral AKA. 4. Coronary artery disease suggested by coronary calcification on CT. 5. Hepatitis C cirrhosis. 6. Chronic kidney disease. 7. Chronic obstructive pulmonary disease. RECOMMENDATIONS: Continue supportive care. Antibiotics per Infectious Disease. Monitor volume status closely. Once she is more hemodynamically stable, we would recommend low-dose diuretics as her BNP is rising. Continue wound care. The patient's long-term prognosis is poor. Thank you for this consult. We will continue to follow. Cathy Rinaldi MD [facility]/MODL /[id number]
[2019-12-04] VITALS (11 sets, daily range): BP systolic 85–119; BP diastolic 51–85
[2019-12-04 04:36] LABS: BASOPHILS % 0.6 % (0.0-1.0); EOSINOPHILS # (AUTO) 0.4 (0.0-0.4); EOSINOPHILS % 7.5 % (0.0-6.0); HEMOGLOBIN 8.7 g/dL (12.0-16.0); LYMPHOCYTES # (AUTO) 1.2 (1.0-3.2); LYMPHOCYTES % 24.2 % (18.0-39.1); MEAN CORPUSCULAR HEMOGLOBIN 27.6 pg (28-32); MEAN CORPUSCULAR HGB CONC 31.1 g/dL (31-35); MEAN CORPUSCULAR VOLUME 88.9 fL (81-99); MONOCYTES # (AUTO) 0.5 (0.2-0.8); MONOCYTES % 9.6 % (4.4-11.3); NEUTROPHILS # (AUTO) 2.8 (2.1-6.9); NEUTROPHILS % 58.1 % (38.7-80.0); PLATELET COUNT 68 x10e3/uL (140-360); RED BLOOD COUNT 3.15 x10e6/uL (3.6-5.1); RED CELL DISTRIBUTION WIDTH 15.6 % (11.7-14.4)
[2019-12-04 04:53] LABS: ALBUMIN 1.9 g/dL (3.5-5.0); ALBUMIN/GLOBULIN RATIO 0.5 (0.8-2.0); ANION GAP 13.3 mmol/L (8-16); CALCIUM 7.7 mg/dL (8.4-10.2); CREATININE, SERUM 1.93 mg/dL (0.57-1.11); MAGNESIUM 1.8 MG/DL (1.3-2.1); POTASSIUM 4.3 mmol/L (3.5-5.1)
[2019-12-04] MEDS: HYDROCODONE/APAP 7.5MG-325MG 1 EA TAB PO PRN ×2 (05:22→14:11)
[2019-12-04] MEDS: LEVOTHYROXINE SODIUM 100 MCG TAB PO SCH (06:44)
[2019-12-04] MEDS: SUCRALFATE 1 GM TAB PO SCH ×4 (08:21→21:23)
[2019-12-04] MEDS: MIDODRINE 2.5 MG TAB PO SCH ×2 (08:21→11:51)
[2019-12-04] MEDS: FAMOTIDINE 20 MG/2 ML VIAL IV SCH ×2 (08:23→16:47)
[2019-12-04] MEDS: MEROPENEM 500MG/ NS 50ML 50 ML IV SCH (08:23)
[2019-12-04] MEDS: SODIUM BICARBONATE 650 MG TAB PO SCH ×2 (08:24→16:47)
[2019-12-04] MEDS: FERROUS SULFATE 325 MG TAB PO SCH ×2 (08:24→16:47)
[2019-12-04] MEDS: ASCORBIC ACID 500 MG TAB PO SCH ×2 (08:24→16:47)
[2019-12-04] MEDS: MORPHINE SULFATE 2 MG/ML SYR 1ML IV PRN ×2 (09:30→21:25)
[2019-12-04] MEDS: BALSAM PERU/CASTOR OIL 60 GM OINT...G. TP SCH (11:23)
[2019-12-04] MEDS: COLLAGENASE OINTMENT 30 GM TUBE TP SCH (11:23)
[2019-12-04] MEDS: FLUCONAZOLE 100 MG TAB PO SCH (12:14)
--- NOTE | 2019-12-04 12:35 | Progress Note ---
DATE: SUBJECTIVE: Ms. Leach remains in intensive care unit, but she is alert, oriented. OBJECTIVE: VITAL SIGNS: Stable, afebrile. HEENT: She not icteric. NECK: Supple. CHEST: Few crackles. Bilateral coarse. HEART: No murmur. ABDOMEN: Soft. LABORATORY DATA: She grew 10,000 yeast in the urine. Laboratory data reviewed. White count 4.8, hemoglobin 8.7, sodium 128, potassium of 4.3, creatinine 1.93. PHYSICAL EXAMINATION: GENERAL: She is currently alert, oriented. VITAL SIGNS: Stable, afebrile. HEENT: She is not icteric. NECK: Supple. CHEST: Clear. COR: S1, S2. No murmurs. ABDOMEN: Soft. IMPRESSION: 1. Status post bilateral lower extremity amputation above the knee. Status post sepsis. We will DC meropenem. We will give Diflucan for 3 days. Continue with supportive care. 2. Anemia. 3. Coronary artery disease. 4. Liver cirrhosis. 5. Hepatitis C. 6. Chronic kidney disease on hemodialysis. We will follow. MD TULIO Jesus/MODL /[id number]
--- NOTE | 2019-12-04 13:15 | Progress Note ---
DATE: SUBJECTIVE: The patient is feeling better. She is sitting up. Her pain is controlled. PHYSICAL EXAMINATION: VITAL SIGNS: The patient is afebrile. The vital signs are stable. HEENT: Shows no facial swelling or erythema. CARDIAC: Reveals regular rate and rhythm with normal S1 and S2. LUNGS: Auscultation of lungs reveals decreased breath sounds at the bases. There is no wheezing. ABDOMEN: Soft and nontender. There is no rebound or guarding. EXTREMITIES: Shows bilateral [id number]-bhuq amputations. LABORATORY DATA: White blood cell count is 4.8 and the hemoglobin is 8.7. The platelet count is 68. BUN to creatinine ratio is 35 to 1.93. Other electrolytes are within normal limits. IMPRESSION: 1. Cirrhosis with portal hypertension. 2. Severe peripheral vascular disease, requiring wvcjz-ern-qnrx amputations bilaterally. 3. Chronic renal failure, stage 4. 4. History of rectus hematoma, requiring surgical evacuation. 5. History of nephrolithiasis and obstructive uropathy. 6. History of anemia. 7. Decubitus ulcers, present on admission. PLAN: 1. Continue current antibiotics. 2. Wound care. 3. Pain control. 4. Transfer out of intensive care unit. Dalton Dill MD [facility]/KENAN /[id number]
[2019-12-04] MEDS: NOREPINEPHRINE INJ 4MG/4ML 8 MG in DEXTROSE 5% 250ML 250 ML IV SCH (14:00)
--- NOTE | 2019-12-04 14:51 | Progress Note ---
DATE: 12/04/2019 Nephrology Progress Note SUBJECTIVE: The patient is sitting up in bed, not short of breath. OBJECTIVE: VITAL SIGNS: Blood pressure 95/59, pulse 85 per minute. Afebrile. Oxygen saturation 99% on room air. NECK: Supple without jugular venous distention. CHEST: Generally clear to auscultation bilaterally. CARDIOVASCULAR: S1, S2. ABDOMEN: Soft, nondistended. EXTREMITIES: Bilateral below-knee amputation. NEUROLOGIC: Alert and oriented x3. LABORATORY DATA: Sodium low today at 128, potassium 4.3, bicarb 23, creatinine stable 1.9. BUN 35, calcium 7.7, magnesium 1.8, and albumin 1.9. IMPRESSION: 1. Acute kidney injury, remains resolved. 2. Chronic kidney disease, stage 4. 3. Anemia, secondary to chronic kidney disease. 4. Fluid overload/right-sided heart failure, oral Lasix has been held. 5. Hyponatremia, dilutional. 6. Metabolic acidosis, controlled on oral sodium bicarbonate. PLAN: 1. We will resume p.o. Lasix since she is developing dilutional hyponatremia. 2. Continue supportive treatment otherwise. 3. Continue to monitor renal function and electrolytes. Diogenes Porras MD [facility]/MODL /[id number]
[2019-12-04] MEDS: FUROSEMIDE 40 MG TAB PO SCH (15:38)
[2019-12-04] MEDS: MIDODRINE HCL 5 MG TABLET PO SCH (16:00)
--- NOTE | 2019-12-04 21:06 | Progress Note ---
DATE: 12/04/2019 Psychiatric Progress Note SUBJECTIVE: The patient is found to be in the ICU. She is sitting up in the bed. She is alert, awake, and oriented to situation. She is calm and cooperative. Blood pressure is somewhat low, systolic 95/59. The patient is not confused. She states that she is doing well. Denies any depression. Denies any suicidal or homicidal ideation. Denies any pain. Denies any problem with sleep or appetite. Denies any side effects medication. ASSESSMENT: Adjustment disorder mixed mood with history of depression. PLAN: Supportive therapy at this time. Psych medication has been discontinued due to her low blood pressure. Monitor for mood . Dictated by Jennifer Alvarez PA-C Anjel Garvey MD [facility]/MODL /[id number]
[2019-12-05] VITALS (8 sets, daily range): BP systolic 90–133; BP diastolic 51–114
[2019-12-05] MEDS: HYDROCODONE/APAP 7.5MG-325MG 1 EA TAB PO PRN ×3 (00:50→16:50)
[2019-12-05] MEDS: MORPHINE SULFATE 2 MG/ML SYR 1ML IV PRN ×3 (04:30→20:24)
--- NOTE | 2019-12-05 05:54 | NUR ---
Went to patient room. Found patient with blood on front of gown. Noted patient pulled out central line to right subclavian. Notified Terrence PROCESS MAINTENANCE TECHNICIAN. Call Dr Dill to notify that patient pulled out central line close to shift change. Attempt to start peripheral IV.
[2019-12-05] MEDS: LEVOTHYROXINE SODIUM 100 MCG TAB PO SCH (06:00)
--- NOTE | 2019-12-05 06:00 | NUR ---
Patient refusing to allow staff to start another peripheral IV access. Will attempt again.
--- NOTE | 2019-12-05 06:11 | NUR ---
Patient refusing to allow staff to start another peripheral IV access.
--- NOTE | 2019-12-05 06:39 | NUR ---
Notified Dr Dill regarding patient removing right subclavian central line and Terrence Dr Knott's MUSIC EDUCATOR request him be notified. Attempt to place peripheral IV. Informed that patient refusing to allow staff to insert peripheral IV. Stated "okay" Give PO norco for pain.
[2019-12-05 06:54] LABS: BASOPHILS % 0.6 % (0.0-1.0); EOSINOPHILS # (AUTO) 0.3 (0.0-0.4); EOSINOPHILS % 4.9 % (0.0-6.0); HEMATOCRIT 28.7 % (34.2-44.1); HEMOGLOBIN 9.1 g/dL (12.0-16.0); LYMPHOCYTES # (AUTO) 1.3 (1.0-3.2); LYMPHOCYTES % 24.5 % (18.0-39.1); MEAN CORPUSCULAR HGB CONC 31.7 g/dL (31-35); MEAN CORPUSCULAR VOLUME 88.3 fL (81-99); MONOCYTES # (AUTO) 0.6 (0.2-0.8); NEUTROPHILS % 58.6 % (38.7-80.0); PLATELET COUNT 77 x10e3/uL (140-360); RED BLOOD COUNT 3.25 x10e6/uL (3.6-5.1); RED CELL DISTRIBUTION WIDTH 14.9 % (11.7-14.4)
--- NOTE | 2019-12-05 07:00 | NUR ---
Report and walking rounds completed with on coming nurse. Patient in bed with call light within reach. No issues or concerns noted.
[2019-12-05 07:01] LABS: ALBUMIN 1.9 g/dL (3.5-5.0); ALBUMIN/GLOBULIN RATIO 0.5 (0.8-2.0); ANION GAP 14.8 mmol/L (8-16); CALCIUM 7.8 mg/dL (8.4-10.2); CREATININE, SERUM 1.8 mg/dL (0.57-1.11); POTASSIUM 4.8 mmol/L (3.5-5.1)
--- NOTE | 2019-12-05 07:05 | NUR ---
PATIENT SITTING UP IN BED, MOANING AND ROCKING FORWARD AND BACKWARDS, SHE DENIED PAIN, PATIENT WAS ASKED ID SHE WANTS ANYTHING, PATIENT STATED, "NO, I'M FINE.
[2019-12-05] MEDS: MIDODRINE HCL 5 MG TABLET PO SCH ×3 (08:00→16:57)
[2019-12-05] MEDS: FERROUS SULFATE 325 MG TAB PO SCH ×2 (10:06→16:57)
[2019-12-05] MEDS: FLUCONAZOLE 100 MG TAB PO SCH (10:06)
[2019-12-05] MEDS: FAMOTIDINE 20 MG/2 ML VIAL IV SCH ×2 (10:06→16:57)
[2019-12-05] MEDS: FUROSEMIDE 40 MG TAB PO SCH ×2 (10:06→16:57)
[2019-12-05] MEDS: SODIUM BICARBONATE 650 MG TAB PO SCH ×2 (10:06→16:57)
[2019-12-05] MEDS: ASCORBIC ACID 500 MG TAB PO SCH ×2 (10:06→16:57)
[2019-12-05] MEDS: SUCRALFATE 1 GM TAB PO SCH ×4 (10:06→20:23)
--- NOTE | 2019-12-05 10:35 | NUR ---
ASSESSMENT: Spiritual distress Licensed Marriage And Family Therapist referred by RN. Pt sleepy and unable to hold conversation. Intervention: Attempted visit. Followed up with RN and CM. Outcome: Will continue to follow as able. GAYATHRI SWIFT Licensed Marriage And Family Therapist Spiritual Care Department O: [phone]
--- NOTE | 2019-12-05 12:14 | Progress Note ---
DATE: SUBJECTIVE: The patient is seen and evaluated. Available labs and notes reviewed. Discussed with the nurse. REVIEW OF SYSTEMS: The patient states that the pain is controlled. No nausea, vomiting, fever, chills, chest pain, shortness of breath. Overall, the patient's says that she is doing fine, however, seems to be confused a little bit and moaning every time I talked to her. OBJECTIVE: VITAL SIGNS: Temperature 98.5, pulse is 89, respiration 18, blood pressure 102/64. GENERAL: Comfortable in bed. No acute distress. CV: S1, S2. CHEST: Equal expansion. Clear to auscultation. No acute distress. ABDOMEN: Soft. Nontender. HEENT: Moist. No pallor. No JVD. EXTREMITIES: Bilateral AKA. Right lower extremity dressed with DOMINICK drain. Left lower extremity mervat noted. Some irritation at the surgical site. No active pus drainage noted. MEDICATIONS: Medication list reviewed. As far as Infectious Disease point of view antibiotics were stopped yesterday and we started Diflucan for a total of three days. LABORATORY STUDIES: White count of 5.11, hemoglobin 9.1, platelets 77, improved from 68. Sodium 123, potassium 4.8, creatinine is 1.8. Serology; no new serology available. HCV RNA PCR pending. MICROBIOLOGY: Recheck blood culture from 11/30 is negative for 72 hours. Urine showed Lynne albicans on 11/29. RADIOLOGY: No new radiology studies available. ASSESSMENT AND PLAN: 1. Severe venous congestion, bilateral lower extremities. 2. Venous stasis ulcers with infection. 3. Multidrug resistant colonization. 4. Status post bilateral above the knee amputations. 5. Anemia. 6. Coronary artery disease. 7. Hepatitis C. 8. Hepatic cirrhosis. 9. Chronic kidney disease. 10. Continue with Diflucan as planned for a total of three days. Monitor off the antibiotics. Continue wound care, protein-calorie optimization. Need some procedure when medically improved. Currently monitor the patient clinically and follow with the labs. Please refer to chart for more information. Further management of this patient is based on daily findings on laboratory and physical examination. Thank you for this dictation. Dictated by Jules Miner PA-C (Al) Vilma Black MD /MEAGANL /[id number]
[2019-12-05] MEDS: NOREPINEPHRINE INJ 4MG/4ML 8 MG in DEXTROSE 5% 250ML 250 ML IV SCH (14:00)
--- NOTE | 2019-12-05 14:55 | Progress Note ---
DATE: SUBJECTIVE: The patient pulled out her tunneled subclavian line nearly this morning. She has been switched to p.o. pain medication. PHYSICAL EXAMINATION: VITAL SIGNS: The blood pressure is 94/51, saturation is 99% and the pulse is 70. HEENT: Shows no facial swelling or erythema. CARDIAC: Reveals a regular rate and rhythm with normal S1 and S2. LUNGS: Auscultation of lungs reveals decreased breath sounds at the bases. There is no wheezing. ABDOMEN: Soft. There are some ascites. She has bilateral iyrxd-gzx-ppwr amputations. LABORATORY DATA: Sodium is 123, carbon dioxide is 20. Creatinine is improved to 1.8. White blood cell count is 5.1 and hemoglobin is 9.1. The platelet count is 77. IMPRESSION: 1. Peripheral vascular disease with bilateral jfpps-haa-psnc amputations. 2. Cirrhosis and chronic liver disease. 3. Portal hypertension. 4. Hepatic encephalopathy. 5. Anemia, unspecified. 6. Chronic renal failure stage 4. 7. Decubitus ulcers. PLAN: 1. Continue oral pain control. 2. Nephrology to re-evaluate the patient for low sodium today. 3. Continue wound care. 4. Physical therapy. Dalton Dill MD [facility]/MODL /[id number]
--- NOTE | 2019-12-05 14:55 | Progress Note ---
DATE: 12/05/2019 Nephrology Progress Note SUBJECTIVE: The patient denies any complaints. Appears comfortable. OBJECTIVE: VITAL SIGNS: Stable for her blood pressure 94/51, pulse is 70 per minute, oxygen saturation 99% on room air. NECK: Supple without jugular venous distention. RESPIRATORY: Bilateral air entry without distress. CARDIOVASCULAR: S1, S2. ABDOMEN: Nondistended. EXTREMITIES: Bilateral BKA. NEUROLOGICAL: Alert and oriented x3. LABORATORY DATA: BUN and creatinine remained stable at 31 and 1.8 respectively. Sodium down to 123, bicarb 20. Serum albumin 1.9. IMPRESSION: 1. Acute kidney injury, staying resolved. 2. Chronic kidney disease stage 4, remaining stable. 3. Progressive hyponatremia, without obvious symptoms. Likely dilutional secondary to liver disease. 4. We will increase Lasix to 40 b.i.d. to promote water diuresis. Water restrict to 1200 mL daily. Monitor daily electrolytes. Diogenes Porras MD [facility]/MODL /[id number]
--- NOTE | 2019-12-05 15:08 | NUR ---
Nutrition Intervention Note RD Recommendation(s) for Physician: -Continue current diet, texture per SHAREPOINT NET DEVELOPER as needed -Recommend resuming Damien BID to promote wound healing -Recommend multivitamin, zinc, and vitamin C for wound healing Plan of Care: RD following, monitoring for tolerance and adequacy Nutrition reason for involvement: follow up RD Assessment: 12/04: Follow up. Prior RD note 11/28 not available in chart. Pt s/p second AKA 11/29 and pending rehab re-evaluation per RN. Pt continues to eat well, most to all of meals. No GI distress reported. Current rec's remain appropriate. Chart reviewed. Pt discussed with RN on unit. Will continue to monitor. (11/21) Follow up. Pt is awaiting bilateral AKA. Pt reports she is eating well. According to SHAREPOINT NET DEVELOPER note yesterday, pt is eating most of her meal tray per nursing. No N/V/D/C noted. Pt reports she is tolerating diet. Pt also mentioned she is consuming some of the Damien supplements that were ordered. Will continue to monitor. (11/15) Pt is a 54 year old female admitted with altered mental status, cellulitis, gangrene, and UTI. SHAREPOINT NET DEVELOPER evaluated pt today and recommended a mechanical soft/chopped diet. Pt stated she usually eats all of her meals. Pt reports no weight loss but was unsure of her usual weight. Per weight history in chart, pt had weighed 170-180 lbs from previous admission in October. Pt currently has a weight of 152 lbs in chart. Suspect possible weight error. Per wound care note, pt has an unstageable sacrogluteal ulcer. Recommend Damien BID to promote wound healing. Informed RN of recommendation. Will continue to monitor. Principal Problems/Diagnoses: altered mental status, cellulitis, gangrene, and UTI PMH: decubitus ulcers, chronic renal failure stage 4, cirrhosis, thrombocytopenia, chronic leg edema and venous stasis GI: non-tender, soft, round abdomen, last recorded BM 11/20 Skin: bilateral AKA incision sites, unstageable right sacro gluteal ulceration per wound care note on 11/16 Labs: 12/04: Na 123, K 4.8, BUN 31, Cr 1.8, Gluc 68 (11/21) BUN 50, Cr 2.08 (11/15) BUN 76, Cr 2.47, Glu 127, Ca 8. Meds: lasix, pepcid, na bicarb, carafate, vitamin C, dulcolax Ht: 62 inches Wt: 142.25 lb (12/04)- s/p bilateral AKA, 141 lbs (11/21) 152 lbs (11/14) Suspect possible weight error BMI: 25.8 kg/m2 IBW: 110 lbs Malnutrition Evaluation (12/05/19) The patient does not meet criteria for a specified degree of malnutrition at this time. Will re-evaluate at follow-up as appropriate. Nutrition Prescription (Diet Order): cardiac Estimated Nutritional Needs: 1154 1282 calories/day (18-20 kcal/kg CBW) 77-96 g protein/day (1.2-1.5 g pro/kg CBW) Diet Adequacy: Meeting calorie needs, Meeting protein needs Tolerance: Tolerating PO Diet Education Needs Assessment: RD is available for diet education as needed Nutrition Care Level: low Nutrition Diagnosis: Increased nutrient needs related to increased demand for protein as evidenced by unstageable sacrogluteal ulcer Goal: Patient will meet 75-100% of estimated needs by follow up Progress: progressing Interventions: - fat/cholesterol/sodium and texture- modified diet, Commercial beverage, Multivitamin/mineral supplement therapy Monitoring/Evaluation: -Total energy intake, Total protein intake, Modified diet, Liquid supplement, Weight change Signed: Celia Fam RD, LD, [facility]
--- NOTE | 2019-12-05 16:15 | NUR ---
RECEIVED REQUEST FOR INPT REHAB. CM CALLED TO DISCUSS REHAB. PROVIDED PT CHOICE; [facility], [facility]. PT CHOSE [facility]. CHOICE LETTER WAS SIGNED BY 2 CM. REFERRAL WAS FAXED TO [facility]. NOTIFIED SRAVAN/ LIABERTIN.
--- NOTE | 2019-12-05 16:21 | NUR ---
Paged 's office and left message of new consult.
--- NOTE | 2019-12-05 16:50 | NUR ---
aware of consult
--- NOTE | 2019-12-05 19:09 | NUR ---
Report given to oncoming nurse of patient's status. Resting in bed. No s/s of acute distress noted. Side rails upx2, call light within reach, bed alarm on.
--- NOTE | 2019-12-05 20:01 | Consultation ---
DATE OF CONSULTATION: 12/05/2019 REFERRING PHYSICIANS: REASON FOR CONSULTATION: 1. Bilateral AKA. 2. Confusion. 3. Acute kidney injury. 4. Hypotension. 5. Cirrhosis of the liver. HISTORY OF PRESENT ILLNESS: Mainly from medical records on the chart, the patient cannot give much history at all. The patient is a 54-year-old female, who came in the hospital on 11/15/2019, has severe peripheral vascular disease, who has ended up with bilateral above the knee amputations. I am unable to get any history from her . She is somewhat confused and seen by Psychiatry as well as multiple specialties due to her anemia . She is confused. I have been asked to evaluate her for rehab needs. PAST MEDICAL HISTORY: Includes: 1. History of decubitus ulcer. 2. Leg edema. 3. Venous stasis. 4. peripheral artery disease. 5. Cellulitis. 6. Chronic renal failure. 7. Cirrhosis of the liver. 8. Hepatitis C. 9. Anxiety. 10. Thrombocytopenia. 11. COPD. PAST SURGICAL HISTORY: Evacuation of rectus hematoma, urological interventions for urethral obstruction, eye surgery, prior skin graft. HABITS: Current smoker. SOCIAL HISTORY: Unable to obtain. She tells me she is ambulatory, but she cannot tell me or even say much about where she lives. FAMILY HISTORY: Unable to obtain. REVIEW OF SYSTEMS: Constitutional review of systems is unable to obtain from the patient. PHYSICAL EXAMINATION: The patient was seen along with the nurse. She is busy eating. She would not even answer my question. She would try to grunt and she would nod her head, but when I asked her more specific question, she would grunt, but continue eating. EYES: Gaze conjugate . NECK: No JVD. LUNGS: Breathing well. ABDOMEN: Nondistended. EXTREMITIES: Limited range of motion of the shoulders, but she has really good strength of her hands at least 4+/5 strength upper extremities bilaterally. Elbow flexion, extension was 4/5 strength, however, shoulder flexion, extension was limited on the left compared to the right. Lower extremity, she has a dressing on the right BKA site as well as left AKA site is open to air and the right AKA site is dressed. IMPRESSION: 1. Bilateral above-knee amputation secondary to peripheral vascular disease. 2. Confusion, there has been ongoing, but apparently she is a little bit more alert . 3. History of hepatitis, stable. 4. The patient with chronic liver disease. 5. Chronic renal failure, stage 4. PLAN: Therapies have been initiated. I do not think she would be a prosthetic candidate, but at least we can work on her transfers and ADLs. We will check with insurance . Thank you once again for allowing me to participate in the care of this pleasant, but unfortunate patient. Hossein Ventura DO [facility]/MODL /[id number]
--- NOTE | 2019-12-05 20:50 | NUR ---
Received report from IMCU nurse.
--- NOTE | 2019-12-05 21:23 | NUR ---
Patient arrived to the floor via bed. Patient received pain meds so is drowsy. Vital sign taken. Patient positioned in bed. Continue monitor.
--- NOTE | 2019-12-05 21:24 | NUR ---
patient transferred to MS 2 rm 286, reports given to Lorna Osorio RN.
--- NOTE | 2019-12-05 22:28 | NUR ---
Dr Bueno on the floor to see patient. Orders received.
[2019-12-06] VITALS (7 sets, daily range): BP systolic 100–123; BP diastolic 47–81
--- NOTE | 2019-12-06 00:26 | NUR ---
Patient moaning but refused pain meds [place] at this time. Will given morphine as ordered. Bed alarm on. Patient encouraged to stay in bed. Continue monitor.
--- NOTE | 2019-12-06 00:34 | Diagnostic Imaging Report ---
EXAM: Abdomen Radiograph 1 View INDICATION: abd distension COMPARISON: KUB 11/17/2019 and 08/15/2019. FINDINGS: Limited study due to patient body habitus and underpenetration. The right lateral hemiabdomen and pelvis is not completely included in the uhgvu-po-wpoh. The bowel gas pattern is nonspecific. No evidence of large volume pneumoperitoneum. Partially visualized left-sided internal ureteral stent. Left sided staghorn calculus and IVC filter are better seen on prior KUB from 08/15/2019. Partially visualized cardiomegaly. No gross acute osseous abnormality. IMPRESSION: Limited study. The bowel gas pattern is nonspecific. Signed by: Dr. Raymond Almeida MD on 12/06/2019 12:31 AM
[2019-12-06] MEDS: MORPHINE SULFATE 2 MG/ML SYR 1ML IV PRN (02:13)
--- NOTE | 2019-12-06 02:25 | NUR ---
Patient groining. Given pain meds as ordered by
[2019-12-06] MEDS: LEVOTHYROXINE SODIUM 100 MCG TAB PO SCH (05:08)
--- NOTE | 2019-12-06 05:18 | NUR ---
Patient resting quitly at this time. Continue monitor.
[2019-12-06 06:04] LABS: BASOPHILS % 0.9 % (0.0-1.0); EOSINOPHILS # (AUTO) 0.2 (0.0-0.4); EOSINOPHILS % 5.7 % (0.0-6.0); HEMATOCRIT 29.2 % (34.2-44.1); LYMPHOCYTES # (AUTO) 1.3 (1.0-3.2); LYMPHOCYTES % 31.3 % (18.0-39.1); MEAN CORPUSCULAR HEMOGLOBIN 28.2 pg (28-32); MEAN CORPUSCULAR HGB CONC 30.8 g/dL (31-35); MEAN CORPUSCULAR VOLUME 91.5 fL (81-99); MONOCYTES # (AUTO) 0.6 (0.2-0.8); NEUTROPHILS % 47.9 % (38.7-80.0); PLATELET COUNT 83 x10e3/uL (140-360); RED BLOOD COUNT 3.19 x10e6/uL (3.6-5.1); RED CELL DISTRIBUTION WIDTH 15.2 % (11.7-14.4)
[2019-12-06 06:31] LABS: ALBUMIN/GLOBULIN RATIO 0.5 (0.8-2.0); ANION GAP 13.8 mmol/L (8-16); CALCIUM 8.2 mg/dL (8.4-10.2); CREATININE, SERUM 2.12 mg/dL (0.57-1.11); POTASSIUM 4.8 mmol/L (3.5-5.1)
--- NOTE | 2019-12-06 06:55 | NUR ---
Bedside shift report, patient lying in bed with eyes open. Respiration even and unlabored without SOB. Call light in reach
[2019-12-06] MEDS: SUCRALFATE 1 GM TAB PO SCH ×4 (09:21→21:00)
[2019-12-06] MEDS: MIDODRINE HCL 5 MG TABLET PO SCH ×3 (09:21→16:26)
[2019-12-06] MEDS: FAMOTIDINE 20 MG/2 ML VIAL IV SCH ×2 (09:25→16:26)
[2019-12-06] MEDS: SODIUM BICARBONATE 650 MG TAB PO SCH ×2 (09:26→16:26)
[2019-12-06] MEDS: FUROSEMIDE 40 MG TAB PO SCH ×2 (09:26→16:26)
[2019-12-06] MEDS: FLUCONAZOLE 100 MG TAB PO SCH (09:26)
[2019-12-06] MEDS: FERROUS SULFATE 325 MG TAB PO SCH ×2 (09:26→16:26)
[2019-12-06] MEDS: ASCORBIC ACID 500 MG TAB PO SCH ×2 (09:26→16:26)
--- NOTE | 2019-12-06 10:14 | NUR ---
Pt appeared troubled but states she did not want to talk at this time. Microbiology Quality Control Technician reminded pt of availability of videographer. Will continue to follow as able. GAYATHRI Irbylain Spiritual Care Department O: [phone]
--- NOTE | 2019-12-06 11:23 | Progress Note ---
DATE: SUBJECTIVE: The patient is seen and evaluated. Available labs and notes reviewed. REVIEW OF SYSTEMS: The patient remains with pain of bilateral lower extremities post bilateral AKA. No fever. No chills. No nausea. No vomiting. She started eating and seems like moving back to her daily routine coloring books and stuff like that. PHYSICAL EXAMINATION: VITAL SIGNS: Temperature 97.9, pulse is 70, respirations 20, and blood pressure 100/53. GENERAL: Alert and oriented, becoming more alert. CV: S1 and S2. CHEST: Equal expansion. Clear to auscultation. No acute distress. ABDOMEN: Soft, nontender. No distention. HEENT: Moist. No pallor. No JVD. EXTREMITIES: Bilateral AKAs, on local care. MEDICATIONS: Medication list reviewed and as far as Infectious Disease point of view, the patient is on Diflucan, day #3 out of 3. LABORATORY STUDIES: White blood cells 4.22, hemoglobin 9, and platelet 83, improving from 77. Sodium 127, potassium 4.8, and creatinine 2.12. MICROBIOLOGY: No new microbiology studies available. Blood culture from 11/30 is negative. IMAGING: Abdominal x-ray from yesterday showed the bowel gas patterns, nonspecific. ASSESSMENT AND PLAN: A pleasant 54-year-old female with complicated past medical history including significant venous congestion of bilateral lower extremities with multiple venous ulcers and infection, multidrug-resistant colonization of the wound and necrotic wounds. The patient finally had a bilateral above-knee amputation. Antibiotic stopped. The patient was treated with Diflucan for fungal infection, today's day #3 out of 3. We stopped the Diflucan. The patient is in need for cysto and retrograde scope by apparently scheduled to be done in the couple days and then probably plan is to be discharged to rehab inpatient at [facility]. Other medical conditions including anemia. 1. Pain, which is chronic, hoping to improve after the above-knee amputation bilateral, currently no acute distress. 2. Coronary artery disease. 3. Liver cirrhosis. 4. Hepatitis C. 5. Stop the Diflucan. Discussed with Dr. Black in details. Further management of this patient is based on daily findings on laboratory and physical examination. Please refer to chart for more information. Dictated by Jules Miner PA-C (Al) MD [facility]/KENAN /[id number]
--- NOTE | 2019-12-06 11:46 | NUR ---
Okay to discontinue Tele per Dilia Hernandez
[2019-12-06] MEDS ORDERED: MORPHINE SULFATE 2 MG/ML SYR 1ML IV PRN (12:15)
[2019-12-06] MEDS: HYDROCODONE/APAP 7.5MG-325MG 1 EA TAB PO PRN (12:58)
[2019-12-06] MEDS ORDERED: FLUCONAZOLE 100 MG/NS 50 ML 50 ML IV SCH (13:30)
[2019-12-06] MEDS ORDERED: MEROPENEM 500MG/ NS 50ML 50 ML IV SCH (14:30)
[2019-12-06] MEDS: MEROPENEM 500MG/ NS 50ML 50 ML IV SCH (16:26)
[2019-12-06] MEDS ORDERED: SODIUM CHLORIDE 0.9% 250ML 250 ML ONE (16:41)
--- NOTE | 2019-12-06 18:30 | Progress Note ---
DATE: SUBJECTIVE: The patient is scheduled for a urological procedure tomorrow. Apparently she removed her peripheral IV. She has had some confusion. PHYSICAL EXAMINATION: VITAL SIGNS: The blood pressure is 116/65 saturation is 95%. HEENT: No facial swelling or erythema. CARDIAC: Regular rate and rhythm with normal S1 and S2. LUNGS: Auscultation of the lungs shows decreased breath sounds at the bases. There is no wheezing. ABDOMEN: Soft nontender. There is no rebound or guarding. EXTREMITIES: No leg edema or calf tenderness. There is no cyanosis or clubbing. SKIN: No focal abnormalities. The patient has some below the knee amputations. LABORATORY DATA: White blood cell count is 4.22 and hemoglobin is 9. The platelet count is 83,000. BUN to creatinine ratio is 39 to 2.12 and the sodium is 127. IMPRESSION: 1. Cirrhosis. 2. Hepatic encephalopathy. 3. Peripheral vascular disease requiring bilateral above the knee amputations. 4. Chronic renal failure stage 4. 5. Physical therapy. 6. The patient is scheduled for a cystoscopy and retrograde pyelogram tomorrow. Dalton Dill MD [facility]/MODL /[id number]
--- NOTE | 2019-12-06 19:30 | NUR ---
patient received awake, alert, sitting up in bed. no c/o pain noted. pm assessment complete. call espino placed within reach. patient instructed to call for assistance when needed.
--- NOTE | 2019-12-06 20:20 | Progress Note ---
DATE: 12/06/2019 SUBJECTIVE: Ms. Leach was seen on rounds today. She is about the same. She is not speaking much, not following commands. Yes or no answer to the best. She still would not talk to me. Not able to really respond much to it. Discussed with nursing, noted that she had been doing better before all her interventions, right now she is just really confused. LABORATORY STUDIES: White cell count 4.2, hemoglobin 9, hematocrit 29.2, platelets of 83. Sodium is 127, potassium 4.8, BUN of 39, creatinine 2.1. OBJECTIVE: VITAL SINGS: The patient temperature 97.9, respirations 20, heart rate 71, blood pressure of 100/53 with O2 sats 96% on room air. ASSESSMENT AND PLAN: Therapy has been very limited thus far. Slow progression towards therapy. Multiple other medical issues including hyponatremia as well as confusion affecting her progression. Continue supportive care. Continue activity as tolerated. Right now, currently not able to do a whole lot of rehab. However, we will continue to increase activity as she tolerates. Hossein Ventura DO [facility]/MODL /[id number]
--- NOTE | 2019-12-06 21:40 | NUR ---
telephone consent obtained for ureteroscopy with laser stent exchange from Shonda Castle with Wale Sorto RN as a witness at this time. consent placed on chart.
[2019-12-07] VITALS (7 sets, daily range): BP systolic 106–113; BP diastolic 55–91
--- NOTE | 2019-12-07 01:51 | Progress Note ---
DATE: 12/06/2019 Nephrology Followup Note SUBJECTIVE: Followup for acute kidney injury on chronic kidney disease stage 4. The patient appears comfortable and has no specific complaints. OBJECTIVE: VITAL SIGNS: Stable. Blood pressure 119/81 with oxygen saturation 98% on room air. NECK: Supple without jugular venous distention. RESPIRATORY: Symmetrical breathing, comfortable. No wheezing heard. CARDIOVASCULAR: Normal S1 and S2. ABDOMEN: Soft and nondistended. EXTREMITIES: Bilateral below-knee amputation. NEUROLOGICAL: Alert and oriented x2. LABORATORY DATA: Hemoglobin 9, white count 4.2, and platelets 83,000. Sodium up to 127 from 123 yesterday, bicarb 22, creatinine 2.1, BUN 39, glucose 68, and calcium 8.2. IMPRESSION AND PLAN: 1. Acute kidney injury, resolved. 2. Chronic kidney disease stage 4, overall creatinine remaining stable. 3. Hyponatremia, asymptomatic. Improved today. Continue fluid restriction and diuretics. 4. Anemia of chronic kidney disease, hemoglobin is stable. Diogenes Porras MD [facility]/MODL /[id number]
--- NOTE | 2019-12-07 02:30 | NUR ---
attempted to restart new iv but patient refuses at this time. patient instructed that she would be going to surgery to day and would needed one. patient states, " I don't care. I don't want one. "
--- NOTE | 2019-12-07 05:00 | NUR ---
bath given and complete bed change done. dressing to left stump changed at this time. no c/o pain noted at this time.
[2019-12-07] MEDS: LEVOTHYROXINE SODIUM 100 MCG TAB PO SCH (05:23)
[2019-12-07 06:33] LABS: BASOPHILS % 0.8 % (0.0-1.0); EOSINOPHILS # (AUTO) 0.2 (0.0-0.4); EOSINOPHILS % 3.2 % (0.0-6.0); HEMATOCRIT 32.1 % (34.2-44.1); HEMOGLOBIN 9.8 g/dL (12.0-16.0); LYMPHOCYTES # (AUTO) 1.4 (1.0-3.2); LYMPHOCYTES % 29.5 % (18.0-39.1); MEAN CORPUSCULAR HEMOGLOBIN 27.8 pg (28-32); MEAN CORPUSCULAR HGB CONC 30.5 g/dL (31-35); MEAN CORPUSCULAR VOLUME 91.2 fL (81-99); MONOCYTES # (AUTO) 0.6 (0.2-0.8); MONOCYTES % 12.7 % (4.4-11.3); NEUTROPHILS # (AUTO) 2.5 (2.1-6.9); NEUTROPHILS % 53.6 % (38.7-80.0); PLATELET COUNT 91 x10e3/uL (140-360); RED BLOOD COUNT 3.52 x10e6/uL (3.6-5.1); RED CELL DISTRIBUTION WIDTH 15.2 % (11.7-14.4)
--- NOTE | 2019-12-07 07:00 | NUR ---
Received bedside shift report with patient lying in bed with eyes open. Respiration even and unlabored without SOB. Patient is currently NPO for procedure. Call light in reach.
[2019-12-07 07:09] LABS: ALBUMIN 2.3 g/dL (3.5-5.0); ALBUMIN/GLOBULIN RATIO 0.5 (0.8-2.0); ANION GAP 17.7 mmol/L (8-16); CALCIUM 8.5 mg/dL (8.4-10.2); CREATININE, SERUM 2.2 mg/dL (0.57-1.11); POTASSIUM 4.7 mmol/L (3.5-5.1)
[2019-12-07] MEDS: SUCRALFATE 1 GM TAB PO SCH ×4 (07:30→21:00)
[2019-12-07] MEDS: MIDODRINE HCL 5 MG TABLET PO SCH ×3 (08:00→16:39)
[2019-12-07] MEDS ORDERED: FLUCONAZOLE 100 MG/NS 50 ML 50 ML IV SCH (08:30)
[2019-12-07] MEDS: FUROSEMIDE 40 MG TAB PO SCH ×2 (09:00→16:40)
[2019-12-07] MEDS: FAMOTIDINE 20 MG/2 ML VIAL IV SCH ×2 (09:00→16:39)
[2019-12-07] MEDS: FLUCONAZOLE 100 MG TAB PO SCH (09:00)
[2019-12-07] MEDS: FERROUS SULFATE 325 MG TAB PO SCH ×2 (09:00→16:40)
[2019-12-07] MEDS: ASCORBIC ACID 500 MG TAB PO SCH ×2 (09:00→16:44)
[2019-12-07] MEDS: SODIUM BICARBONATE 650 MG TAB PO SCH ×2 (09:00→16:44)
[2019-12-07] MEDS ORDERED: B&O 60MG R/S 60 MG SUPP PR ONE (09:30)
[2019-12-07] MEDS ORDERED: IOPAMIDOL 300MG/ML 50ML INFUS..BTL IV ONE (09:30)
--- NOTE | 2019-12-07 09:30 | NUR ---
Patient is transported for procedure at this time.
--- NOTE | 2019-12-07 09:41 | NUR ---
SRAVAN REQUESTED OT NOTES FOR INSURANCE AUTH. FAXED TO [phone]. NOTIFIED SRAVAN.
[2019-12-07] MEDS ORDERED: MORPHINE SULFATE INJ 4 MG/ML INJ 1ML ONE (11:37)
--- NOTE | 2019-12-07 11:45 | NUR ---
Patient is back from the procedure.
--- NOTE | 2019-12-07 11:54 | Diagnostic Imaging Report ---
OR Fluoroscopy: IMPRESSION: Fluoroscopy service provided in the OR. Interpretation not requested. Signed by: Jacek Isidro MD on 12/07/2019 11:51 AM
--- NOTE | 2019-12-07 12:37 | Progress Note ---
DATE: SUBJECTIVE: Discussed with the staff. The patient is apparently with no nausea, vomiting, fever, chills, chest pain, shortness of breath, headache, or any complaints on review of systems. PHYSICAL EXAMINATION: VITAL SIGNS: Temperature is 97.4, pulse is 83, respiration 20, and blood pressure 106/59. Temperature reviewed. The patient is afebrile since 12/01/2019 with a max temperature of 100.2 once. GENERAL: Alert and oriented, no acute distress. CV: S1 and S2. CHEST: Equal expansion. Clear to auscultation. No acute distress. ABDOMEN: Soft and nontender. No distention. HEENT: Moist. No pallor. No JVD. EXTREMITIES: Bilateral AKA, on local care. MEDICATIONS: Medication list reviewed and as far as Infectious Disease, the patient was put on meropenem yesterday prophylactically and also Diflucan was added this morning, but Dr. Luna per my discussion with him, since the patient is going for cystoscopy. MICROBIOLOGY: Blood culture 11/30, negative. LABORATORY STUDIES: White count 4.71, hemoglobin 9.8, and platelet 91. Sodium 133, potassium 4.7, and creatinine 2.2. Serology; coronavirus PCR 12/05, is not detected. Recheck coronavirus PCR 12/07/2019, is pending. IMAGING: No new radiology studies pending. ASSESSMENT AND PLAN: 1. Severe venous stasis of bilateral lower extremities. 2. Multiple venous ulcers. 3. Status post bilateral above-knee amputation. 4. Coronary artery disease. 5. Acute kidney injury. 6. Chronic kidney disease, stage 4. 7. Electrolyte abnormalities. 8. Renal stone. 9. Continue with antibiotics and antifungal at this point. Await cystoscopy and retrograde. We will follow with the labs. Monitor the patient clinically. Discussed with Dr. Black in details. Please refer to chart for more information. Dictated by Jules Zavala) CHRIS Miner Vilma Black MD /MODL /[id number]
[2019-12-07] MEDS ORDERED: LORAZEPAM 0.5 MG TAB PO PRN (14:45)
[2019-12-07] MEDS: MEROPENEM 500MG/ NS 50ML 50 ML IV SCH (16:39)
[2019-12-07] MEDS: BUPROPION HCL 75 MG TAB PO SCH (16:59)
--- NOTE | 2019-12-07 17:53 | Progress Note ---
DATE: 12/07/2019 SUBJECTIVE: The patient evaluated and events noted. The patient is in the room. She is sitting up. She is not talking to me. She appears to be tearful. Nurse reports the patient has been crying and appears to be depressed. The patient recently had surgery. Her psych medication was discontinued due to very low blood pressure. OBJECTIVE: VITAL SIGNS: At this time, her blood pressure is 106/59. LABORATORY DATA: Sodium level is 133. The patient is not combative, agitated. She is not verbalizing suicidal ideation. ASSESSMENT: Major depressive disorder, recurrent, moderate. PLAN: 1. Add Wellbutrin 75 mg p.o. b.i.d. 2. Ativan p.r.n. p.o. 3. Monitor for mood. 4. Supportive therapy. Dictated by Jennifer Alvarez PA-C Anjel Garvey MD [facility]/MODL /[id number]
--- NOTE | 2019-12-07 18:08 | Progress Note ---
DATE: 12/07/2019 SUBJECTIVE: Ms. Leach was seen on rounds today. She is doing a little bit better. She is sitting up in bed. When I asked her how she is doing, she indicates that she is doing fine, gave me a nod. When I asked her say her name, she said oh god, but with little bit dysarthric. LABORATORY DATA: White cell count 4.7, hemoglobin 9.8, hematocrit 32.1, and platelets of 91. Sodium 130, potassium 4.7, BUN of 42, and creatinine 2.2. OBJECTIVE: VITAL SIGNS: Temperature 97.4, respirations 20, heart rate 83, and blood pressure 106/59. HEART: Regular. LUNGS: Diminished breath sounds. ABDOMEN: Nondistended. NECK: No JVD. Therapy arango, today schedule for ureteroscopy, but therapy arango, really not getting a whole lot of activity at this time given her bilateral . Also, home situation is still very questionable. IMPRESSION: 1. Bilateral above-knee amputations. 2. AMS. PLAN: Working on placement. Continue supportive care. Hossein Ventura DO [facility]/MODL /[id number]
--- NOTE | 2019-12-07 18:19 | Progress Note ---
DATE: SUBJECTIVE: The patient is being evaluated by [facility] for possible inpatient rehab. Her pain is better controlled. She does have some intermittent confusion. PHYSICAL EXAMINATION: VITAL SIGNS: The blood pressure is 112/90 and saturation is 98%. Her pulse is 88. HEENT: Shows no facial swelling or erythema. CARDIAC: Reveals a regular rate and rhythm with normal S1 and S2. LUNGS: Auscultation of lungs reveals decreased breath sounds at the bases. There is no wheezing. ABDOMEN: Soft and nontender. There is no rebound or guarding. EXTREMITIES: There are [id number] amputations bilaterally. IMPRESSION: 1. Severe peripheral vascular disease leading to [id number] amputations. 2. Cirrhosis and portal hypertension. 3. Hepatic encephalopathy. 4. Chronic renal failure, stage 4. 5. Decubitus ulcers. 6. Anemia, unspecified. PLAN: 1. Await final evaluation from Physical Medicine and Rehabilitation. 2. Disposition either inpatient rehab or senior care facility. 3. Continue wound care. 4. Continue current regimen for cirrhosis. 5. Physical therapy. Dalton Dill MD [facility]/MODL /[id number]
--- NOTE | 2019-12-07 18:50 | NUR ---
Report given to shift mechanic. Respiration even and unlabored without SOB. Suprapubic Catheter intact, draining reddish-colored urine to bag. Call light in reach.
--- NOTE | 2019-12-07 19:05 | NUR ---
patient received awake, alert, lying quietly in bed. no c/o pain noted. patient cries out at times but unable to tell me what's wrong. patient repositioned for comfort. pm assessment complete. close monitoring continues for safety.
[2019-12-07] MEDS ORDERED: SEVOFLURANE INHAL SOLN 250 ML PEN BTL ONE (19:20)
--- NOTE | 2019-12-07 22:45 | Operative Report ---
DATE OF PROCEDURE: 12/07/2019 SURGEON: Delbert Luna MD SERVICE: Urology. PREOPERATIVE DIAGNOSES: 1. Left nephrolithiasis, large 2 stones in the upper left kidney. 2. Presence of double-J stent. 3. Thrombocytopenia. 4. Status post bilateral AKA. 5. Chronic SP tube. 6. Left double-J stent. POSTOPERATIVE DIAGNOSES: 1. Left nephrolithiasis, large 2 stones in the upper left kidney. 2. Presence of double-J stent. 3. Thrombocytopenia. 4. Status post bilateral AKA. 5. Chronic SP tube. 6. Left double-J stent. 7. Small bladder calculi. OPERATIONS PERFORMED: 1. Cystoscopy, removal of small bladder calculi. 2. Right retrograde pyelograms under fluoroscopic control. This is done with no connection to the contralateral side done with different instruments. 3. Removal of double-J stent from the left side. 4. Left ureteroscopy with attempt to reach the stones. 5. Placement of double-J stent, 7-Bahamian, 22 cm long to the left side. 6. Interpretation of x-ray, radiologist not present. 7. Supervision of fluoroscopy, radiologist not present. 8. Cystogram under fluoroscopic control. This was done for assessment of the bladder and position of the suprapubic. 9. Change of suprapubic tube, replacement of 24-Bahamian 5 mL balloon catheter. DEMO SPECIALIST: None. ANESTHESIA: General. CLINICAL INDICATION NOTE: This is a 54-year-old patient with multiple medical problems and also history of complicated stones in the left kidney and history of renal perforation, as well as sepsis. The patient was brought for reassessment and possible treatment of the stone endoscopically. The patient is a very poor historian and has a quite high risk for any procedure. DESCRIPTION OF PROCEDURE AND FINDING: After proper level of anesthesia was achieved, she was placed in a modified lithotomy position if allowed by the bilateral AKA. Urethra inspected, it is unremarkable. The outlet is normal. The bladder mucosa is unremarkable. There are multiple tiny little stones that were all evacuated. Double-J stent is protruding from the left side. Right open-end catheter was inserted and retrograde right pyelograms were done. No intrinsic lesions were identified. Drainage was prompt. Following this, the left double-J stent was removed. Wire was kept in place. Open-end catheters and retrograde pyelogram demonstrating some minimal dilation of the ureter does not seem to be obstructed and large stones in the upper part of the kidney. A guidewire was kept in place and the excess sheath was advanced up into the renal pelvis. Following this, the ureteroscopy was done. It was not possible to manipulate and identify clearly safe access to those large stones. Due to the poor status of the patient's leg to not to proceed and a double-J stent, 7-Bahamian, 22 cm long was properly positioned on the left side. This was verified by endoscopy and x-ray. Following this, a cystogram was demonstrating unremarkable. The suprapubic tube was replaced and a 24-Bahamian 5 mL Gibson catheter was inserted. The patient was transferred in satisfactory condition to recovery room. She will be followed as needed. MD LAURIE Mccray/MODL /[id number]
[2019-12-08] MEDS: HYDROCODONE/APAP 7.5MG-325MG 1 EA TAB PO PRN (00:26)
--- NOTE | 2019-12-08 00:26 | NUR ---
patient sitting up in bed crying. patient medicated with norco 7.5mg po for c/o generalized pain 6/10 per patient at this time. patient repositioned for comfort.
[2019-12-08 01:09] VITALS: BP 115/97
[2019-12-08 05:27] VITALS: BP 104/66
[2019-12-08] MEDS: LEVOTHYROXINE SODIUM 100 MCG TAB PO SCH (05:32)
[2019-12-08 06:12] LABS: BASOPHILS % 0.9 % (0.0-1.0); EOSINOPHILS # (AUTO) 0.1 (0.0-0.4); EOSINOPHILS % 3.1 % (0.0-6.0); HEMATOCRIT 28.4 % (34.2-44.1); HEMOGLOBIN 8.7 g/dL (12.0-16.0); LYMPHOCYTES % 29.1 % (18.0-39.1); MEAN CORPUSCULAR HEMOGLOBIN 27.4 pg (28-32); MEAN CORPUSCULAR HGB CONC 30.6 g/dL (31-35); MEAN CORPUSCULAR VOLUME 89.3 fL (81-99); MONOCYTES # (AUTO) 0.4 (0.2-0.8); MONOCYTES % 12.3 % (4.4-11.3); NEUTROPHILS # (AUTO) 1.9 (2.1-6.9); NEUTROPHILS % 54.3 % (38.7-80.0); PLATELET COUNT 82 x10e3/uL (140-360); RED BLOOD COUNT 3.18 x10e6/uL (3.6-5.1); RED CELL DISTRIBUTION WIDTH 15.1 % (11.7-14.4)
[2019-12-08 06:43] LABS: CALCIUM 8.3 mg/dL (8.4-10.2)
--- NOTE | 2019-12-08 07:10 | NUR ---
PATIENT SITTING UP IN BED COLORING, NO COMPLAIN VOICED. DRESSING DRY AND INTACT TO LEFT AKA, DRESSING TO RIGHT AKA WITH SOME DRAINAGE; DOMINICK DRAIN IN PLACE. BED IN LOWER POSITION, CALL LIGHT AT REACH.
--- NOTE | 2019-12-08 07:42 | NUR ---
PATIENT HAS AN ORDER FOR TELEMETRY, BUT IS REFUSING IT TO BE APPLIED.
[2019-12-08] MEDS: SUCRALFATE 1 GM TAB PO SCH ×3 (08:00→16:52)
[2019-12-08] MEDS: MIDODRINE HCL 5 MG TABLET PO SCH ×3 (08:31→16:00)
[2019-12-08] MEDS: FAMOTIDINE 20 MG/2 ML VIAL IV SCH ×2 (09:00→16:53)
[2019-12-08] MEDS: FERROUS SULFATE 325 MG TAB PO SCH ×2 (09:04→16:53)
[2019-12-08] MEDS: FLUCONAZOLE 100 MG TAB PO SCH (09:04)
[2019-12-08] MEDS: FUROSEMIDE 40 MG TAB PO SCH ×2 (09:04→16:53)
[2019-12-08] MEDS: SODIUM BICARBONATE 650 MG TAB PO SCH ×2 (09:04→16:53)
[2019-12-08] MEDS: BUPROPION HCL 75 MG TAB PO SCH ×2 (09:04→16:53)
[2019-12-08] MEDS: ASCORBIC ACID 500 MG TAB PO SCH ×2 (09:04→16:53)
--- NOTE | 2019-12-08 09:52 | Progress Note ---
DATE: SUBJECTIVE: The patient is seen and evaluated. Available labs and notes reviewed. Discussed with the patient and the nurse. REVIEW OF SYSTEMS: No nausea, vomiting, fever, chills, chest pain, shortness of breath, headache, rash, or dysuria. Pain is controlled. PHYSICAL EXAMINATION: VITAL SIGNS: Temperature 98.0, pulse 74, respirations 16, blood pressure 104/66. GENERAL: Alert and oriented, sitting on edge of the bed. Eats well. CV: S1, S2. CHEST: Equal expansion. Clear to auscultation. No acute distress. ABDOMEN: Soft, nontender. No distention. HEENT: Moist. No pallor. No JVD. EXTREMITIES: Status post recent bilateral AKA wounds, on local care. The patient has a DOMINICK drain and maybe about 5 mL of old blood in it, which is dark red. The patient has suprapubic catheter seems to be functional. MEDICATIONS: Medication list reviewed. From Infectious Disease point of view, the patient is on meropenem and Diflucan. LABORATORY STUDIES: White blood cells of 2.5, hemoglobin 8.7, platelets 82. Sodium 138, potassium 4, creatinine 2. SEROLOGY: Coronavirus PCR 11/17 is not detected. Coronavirus 12/06 pending. MICROBIOLOGY: No new microbiology studies available. RADIOLOGY STUDIES: Status post retrograde cystoscopy yesterday on 12/07/2019. ASSESSMENT AND PLAN: This is a 54-year-old female, complicated past medical history of severe lymphedema and venous stasis bilateral lower extremities with infected venous ulcers, failed treatment MDR colonization. Now, the patient is status post bilateral AKA with right still with a DOMINICK drain. The patient currently comfortable with no complaints. 1. Coronary artery disease. 2. Neurogenic bladder with suprapubic catheter. 3. Chronic kidney disease. 4. Renal stone, status post cystoscopy and retrograde by yesterday. 5. Debility, multifactorial and now with bilateral AKA. 6. The patient was placed on meropenem and Diflucan prophylactically for the cystoscopy and retrograde, still on these two medications. Discussed with Dr. Black. Continue to monitor the patient clinically and follow with the labs. Please refer to chart for more information. Discussed with Dr. Black in details. Dictated by Jules Miner PA-C (Al) MD [facility]/KENAN /[id number]
[2019-12-08] MEDS ORDERED: COLLAGENASE 5 GM TUBE TOP SCH (11:00)
--- NOTE | 2019-12-08 11:49 | NUR ---
SPOKE WITH MANAGER LOGISTIC REGARDING PT REFUSING TELEMETRY, NEW ORDER RECEIVED.
[2019-12-08 12:00] VITALS: BP 143/71
--- NOTE | 2019-12-08 13:00 | NUR ---
Spoke to pt at bedside regarding SNF eval. Pt states she understands needs for SNF. Does not want to return to [facility]. States wants facility outside of [place]. Gave pt a list of in network. Pt chose [facility]. Signed choice letter placed in chart. Copy to pt. Referral faxed to [facility] at [phone]
--- NOTE | 2019-12-08 15:37 | NUR ---
CARE HOME FACILITY DISCHARGE INFORMATION PATIENT HAS BEEN ACCEPTED TO: [facility] [address] [place] [address] ACCEPTING SHOOTING GALLERY OPERATOR: Gabriella Flores ACCEPTING MD: Dr. Knott ROOM: 213A NURSE CALL REPORT TO: [phone] IMM SIGNED AND OBTAINED (if applicable): yes. Pt verbalized understanding. Signed copy placed in chart. Copy to pt. THE FOLLOWING DOCUMENTS MUST ACCOMPANY PATIENT FOR TRANSFER: copy of chart. transfer MAR COPIED CHART: kiran Barlowspray unit feeder RTF: completed and placed with pt's packet at nurses station [id number] DNR: SABINE Christian was notified of bed. COVID assessment form and PASSR faxed to facility. Copies placed in chart and packet for transfer.
[2019-12-08 16:00] VITALS: BP 130/74
--- NOTE | 2019-12-08 16:04 | Progress Note ---
DATE: 12/08/2019 Renal Progress Note SUBJECTIVE: The patient is followed for acute kidney injury on chronic kidney disease, stage 4. Recovered acute kidney injury state at baseline CKD stage 4. Creatinine continues to improve at 2.0 mg/dL. Today, no nausea, no vomiting, no shortness of breath. OBJECTIVE: VITAL SIGNS: Have been noted and stable. LUNGS: Clear to auscultation bilaterally. CARDIOVASCULAR: S1 and S2. No rub. ABDOMEN: Soft and nontender. EXTREMITIES: No edema. LABORATORY DATA: Potassium is 4 and creatinine is 2.0. IMPRESSION AND PLAN: 1. Chronic kidney disease, stage 4. Continue to monitor closely. 2. Hypertension. Blood pressure stable. We will continue to monitor closely. 3. Anemia following disease. H and H are stable. Hemoglobin is around 8.7. 4. We will follow the patient closely with you and once discharge, the patient can follow up with us in the outpatient setting. MD LOUISE Bowman/MODL /[id number]
--- NOTE | 2019-12-08 16:07 | NUR ---
IN TO SEE PATIENT. DOMINICK DRAIN REMOVED BY . PATIENT SITTING UP IN BED WATCHING TV.
--- NOTE | 2019-12-08 18:15 | Progress Note ---
DATE: 12/08/2019 SUBJECTIVE: Ms. Leach is somewhat better today. She is awake. She is alert. She is responding to me. She is still confused. She is responding and not just staring off. White cell count 3.5, hemoglobin 8.2, hematocrit 28.4, and platelets of 82. The patient is awake and alert. She is sitting up, demonstrating good sitting tolerance and sitting balance. OBJECTIVE: VITAL SIGNS: Temperature 97.4, respirations 20, heart rate 62, and blood pressure 143/71. The patient is receiving services to try to work on transfers. Unfortunately, she needs more OT than PT. At this point, there is no occupational therapy in this facility. Otherwise, doing better with regard to cognition, working on discharge planning to facility. I asked her what her prior health situation was, and she said she lived here, so unfortunately do not have a good baseline, where she can go. discussed with the patient at length. Hossein Ventura DO [facility]/MODL /[id number]
--- NOTE | 2019-12-08 18:19 | NUR ---
PATIENT IS ABOUT TO BE TRANSFERRED TO SNF. REPORT CALLED AND GIVEN TO RECEIVING NURSE. PATIENT HAS NO IV ACCESS. AWAITING FOR TRANSPORTATION.
--- NOTE | 2019-12-08 18:24 | Discharge Summary ---
ADMISSION DIAGNOSES: 1. Acute urinary tract infection, present on admission. 2. Acute kidney injury on chronic kidney disease 4. 3. Anxiety. 4. Depression. 5. Hepatitis C cirrhosis with hepatic encephalopathy. 6. Acute metabolic encephalopathy due to #1. 7. Chronic bilateral lower extremity cellulitis and arterial ulcers. 8. Transaminitis with history of hep C. 9. Chronic obstructive pulmonary disease without exacerbation. 10. Hypothyroidism. DISCHARGE DIAGNOSES: 1. Acute urinary tract infection, present on admission. 2. Acute kidney injury on chronic kidney disease 4. 3. Anxiety. 4. Depression. 5. Hepatitis C cirrhosis with hepatic encephalopathy. 6. Acute metabolic encephalopathy due to #1. 7. Chronic bilateral lower extremity cellulitis and arterial ulcers. 8. Transaminitis with history of hep C. 9. Chronic obstructive pulmonary disease without exacerbation. 10. Hypothyroidism. 11. Lynne urinary tract infection, present on admission. 12. Methicillin-resistant Staphylococcus aureus Enterococcus and Acinetobacter of the wound, present on admission. HISTORY: Kidney stones, liver disease, cirrhosis, frequent urinary tract infections, chronic obstructive pulmonary disease, hep C, anemia, hypothyroidism, depression, gastroesophageal reflux disease, chronic kidney disease 4, chronic back pain, PAD, hepatic encephalopathy, protein-calorie malnutrition, chronic bilateral arterial leg wounds, obesity, anxiety, depression. SURGICAL HISTORY: Paracentesis, rectus hematoma evacuation, suprapubic catheter placement, sacral skin graft. FAMILY HISTORY: The patient's father and brother had diabetes. The patient's mom had cancer. SOCIAL HISTORY: Noncontributory. HOSPITAL COURSE: A 54-year-old female, admits to the ER due to AMS with facial swelling. She was seen at [facility] earlier this month with extended-spectrum beta-lactamase urinary tract infection, multiple leg wounds, and altered mental status. On admission, the patient was started on antibiotics. Brain CT showed no significant change. Chest x-ray showed unchanged cardiomegaly and pulmonary venous congestion. The patient had Psych, Urology surgery, GI, Cardiology, Infectious Disease, Critical Care, Wound Care, and Nephrology on her case. The patient was ultimately taken for left above the knee amputation after much back and forth with the patient and her POA. On 11/23/2019, she was then taken back to the OR for right AKA. On 11/30/2019, the patient was receiving Merrem and fluconazole per Infectious Disease recommendation. At the time of discharge, the antibiotics were complete. The surgical sites are healing well. Due to history of renal stones and stent, the patient was taken to the OR per recommendations for cystoscopy, stent exchange, removal of bladder calculi and exchange of the suprapubic catheter. She was then discharged per recommendation as well. She will go to [facility] for physical therapy, help with transfer before returning to assisted living facility. Vital signs are stable. The patient is afebrile. Dictated by Mary Ellis NP MD IVY Berkowitz/MODL /[id number]
== END 2019-12-08 20:05 | DRG 853 ==
LOC: ER 08:49 → ERHOLD 12:54 → MED/SURG2 17:48 → IMCU 11-23 13:37 → ICU 11-23 13:42 → IMCU 11-24 20:00 → MED/SURG2 11-25 08:52 → ICU 12-01 13:23 → IMCU 12-04 22:04 → MED/SURG3 12-05 21:31
PROVIDERS: ADMIT Internal Medicine; ATTEND Internal Medicine
PROC: 30233N1 Transfusion of Nonautologous Red Blood Cells into Peripheral Vein, Percutaneous Approach (ICD-10-PCS; 2019-11-16)
PROC: 0Y6D0Z3 Detachment at Left Upper Leg, Low, Open Approach (ICD-10-PCS; 2019-11-23)
PROC: 0D598ZZ Destruction of Duodenum, Via Natural or Artificial Opening Endoscopic (ICD-10-PCS; 2019-11-23)
PROC: 0DB78ZX Excision of Stomach, Pylorus, Via Natural or Artificial Opening Endoscopic, Diagnostic (ICD-10-PCS; 2019-11-23)
PROC: 02HV33Z Insertion of Infusion Device into Superior Vena Cava, Percutaneous Approach (ICD-10-PCS; principal; 2019-12-01)
PROC: 0JH63XZ Insertion of Tunneled Vascular Access Device into Chest Subcutaneous Tissue and Fascia, Percutaneous Approach (ICD-10-PCS; 2019-12-01)
PROC: 0T778DZ Dilation of Left Ureter with Intraluminal Device, Via Natural or Artificial Opening Endoscopic (ICD-10-PCS; 2019-12-07)
PROC: 0TP98DZ Removal of Intraluminal Device from Ureter, Via Natural or Artificial Opening Endoscopic (ICD-10-PCS; 2019-12-07)
PROC: BT141ZZ Fluoroscopy of Kidneys, Ureters and Bladder using Low Osmolar Contrast (ICD-10-PCS; 2019-12-07)
PROC: 0T2BX0Z Change Drainage Device in Bladder, External Approach (ICD-10-PCS; 2019-12-07)
DX: A41.9 Sepsis, unspecified organism (principal); G93.41 Metabolic encephalopathy; K55.21 Angiodysplasia of colon with hemorrhage; B37.49 Other urogenital candidiasis; N18.4 Chronic kidney disease, stage 4 (severe); N17.9 Acute kidney failure, unspecified; Z16.24 Resistance to multiple antibiotics; L03.116 Cellulitis of left lower limb; L03.115 Cellulitis of right lower limb; K76.6 Portal hypertension; D61.818 Other pancytopenia; E87.2 Acidosis; K72.90 Hepatic failure, unspecified without coma; I12.9 Hypertensive chronic kidney disease with stage 1 through stage 4 chronic kidney disease, or unspecified chronic kidney disease; K74.60 Unspecified cirrhosis of liver; B18.2 Chronic viral hepatitis C; F41.9 Anxiety disorder, unspecified; F32.9 Major depressive disorder, single episode, unspecified; E03.9 Hypothyroidism, unspecified; B96.1 Klebsiella pneumoniae [K. pneumoniae] as the cause of diseases classified elsewhere; J44.9 Chronic obstructive pulmonary disease, unspecified; R74.0 Nonspecific elevation of levels of transaminase and lactic acid dehydrogenase [LDH]; Z89.611 Acquired absence of right leg above knee; N20.0 Calculus of kidney; D69.6 Thrombocytopenia, unspecified; N21.0 Calculus in bladder; K31.89 Other diseases of stomach and duodenum; I87.2 Venous insufficiency (chronic) (peripheral); M10.9 Gout, unspecified; N13.9 Obstructive and reflux uropathy, unspecified; B95.62 Methicillin resistant Staphylococcus aureus infection as the cause of diseases classified elsewhere
CPT/HCPCS: 36415; 36558; 43239; 43255; 70450; 71045; 74018; 74420; 74470; 76937; 77001; 80048; 80053; 80061; 80202; 81001; 82140; 82270; 82550; 82553; 82607; 82728; 82746; 82948; 83540; 83605; 83735; 83880; 84080; 84100; 84466; 84484; 85014; 85018; 85025; 85045; 85610; 85730; 86850; 86900; 86920; 86922; 87040; 87071; 87086; 87186; 87205; 87521; 87635; 88305; 88307; 88311; 88312; 93005; 93925; 97139; 99251; 99284; C1766; C1769; C2617; J1200; J1450; J1756; J1940; J1956; J2001; J2175; J2250; J2270; J2370; J2405; J2710; J2930; J3010; J3370; J7030; J7040; J7050; J7070; P9016; P9047; Q0162

== ENCOUNTER 2019-12-15 16:41 | Inpatient (IN) | payer MEDICARE, OTHER ==
[~2019-12-15] VITALS: Ht 157.5 cm; Wt 73.2 kg
--- NOTE | 2019-12-15 17:47 | Emergency Department Note ---
History of Present Illnes History of Present Illness Chief Complaint: General Medicine Complaints History of Present Illness This is a 54 year old female .sent to ed c/o low h&h hematuria and hyperkalemia Chief Complaint Comment HERE FOR LOW HEMOGLOBIN, HEMATURIA AND HYPERKALEMIA. CLIENT FROM [facility]. BILATERAL AKA. 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 Private/EMS Arrival Mode: [facility] EMS Treatment SUSPECT ARTIST: See EMS Report Onset (how long ago): week(s) (1 wk) Radiation: non-radiation; back, neck, extremity, abdomen, periumbilical, flank, proximal, distal, other Onset quality: gradual Duration (how long): week(s) (1 wk) Timing of current episode: constant Progression: unchanged Context: recent illness, recent surgery, recent immobilization, recent travel, trauma/injury, new medications, hx of DVT/PE, non-compliance w/ medications, other Relieving factors: none Exacerbating factors: none Treatments prior to arrival: none (SHERRY CURRY NP) Past Medical/Family History Physician Review I have reviewed the patient's past medical and family history. Any updates have been documented here. (SHERRY CURRY NP) Past Medical History Recent Fever: No Clinical Suspicion of Infectio: No New/Unexplained Change in Ment: No Past Medical History: COPD, Hepatitis C, Kidney Stones, UTI's, Liver Disease, ESRD, Depression, GERD, Chronic Kidney Disease Other Medical History: unable to obtain Other Surgery: Paracentesis Stone Removal (SHERRY CURRY NP) Social History Smoking Cessation: Never Smoker Alcohol Use: None Any Illegal Drug Use: No TB Exposure/Symptoms: No Physically hurt or threatened: No (SHERRY CURRY NP) Family History Family history of heart diseas: No (SHERRY CURRY NP) Other Last Tetanus: UTD (SHERRY CURRY NP) Review of Systems Review of Systems Constitutional: no symptoms EENTM: no symptoms Cardiovascular: no symptoms Respiratory: no symptoms Gastrointestinal: no symptoms Genitourinary: hematuria Musculoskeletal: no symptoms Neurological: no symptoms Psychological: no symptoms Endocrine: no symptoms Hematological/Lymphatic: no symptoms Review of other systems All other systems reviewed and negative. reported low h&h and hyperkalemia (SHERRY CURRY NP) Physical Exam Related Data Allergies: Coded Allergies: cephalexin (Verified Allergy, Mild, 01/03/19) Triage Vital Signs Vital Signs Date Time Temp Pulse Resp B/P (MAP) Pulse Ox O2 Delivery O2 Flow Rate FiO2 12/15/19 17:13 98.1 76 16 110/80 96 Vital signs reviewed: Yes (SHERRY CURRY RN ADMIT) Physical Exam CONSTITUTIONAL Constitutional: well-developed, well-nourished HENT HENT: normocephalic, atraumatic, oropharynx clear/moist, nose normal HENT L/R: left ext ear normal, right ext ear normal EYES Eyes: PERRL, conjunctivae normal NECK Neck: ROM normal PULMONARY Pulmonary: effort normal, breath sounds normal CARDIOVASCULAR Cardiovascular: regular rhythm, heart sounds normal, capillary refill normal, normal rate GASTROINTESTINAL denies abd pain n/v/d Abdominal: soft, nontender, bowel sounds normal GENITOURINARY Genitourinary: exam deferred, other (noted hemtaturia in hidalgo bag ) SKIN Skin: warm, dry MUSCULOSKELETAL Musculoskeletal: ROM normal, other (noted bilat aka) NEUROLOGICAL Neurological: alert, oriented x 3, no gross motor or sensory deficits PSYCHOLOGICAL Psychological: mood/affect normal, judgement normal Exam - additional comments reported pt has low h&h and hyperkalemia (SHERRY CURRY RN ADMIT) Results Laboratory Laboratory Laboratory Tests Test 12/15/19 18:56 12/15/19 18:16 White Blood Count 7.01 x10e3/uL (4.8-10.8) Red Blood Count 2.30 x10e6/uL (3.6-5.1) Hemoglobin 6.4 g/dL (12.0-16.0) Hematocrit 20.7 % (34.2-44.1) Mean Corpuscular Volume 90.0 fL (81-99) Mean Corpuscular Hemoglobin 27.8 pg (28-32) Mean Corpuscular Hemoglobin Concent 30.9 g/dL (31-35) Red Cell Distribution Width 16.3 % (11.7-14.4) Platelet Count 92 x10e3/uL (140-360) Neutrophils (%) (Auto) 71.8 % (38.7-80.0) Lymphocytes (%) (Auto) 15.3 % (18.0-39.1) Monocytes (%) (Auto) 10.4 % (4.4-11.3) Eosinophils (%) (Auto) 1.7 % (0.0-6.0) Basophils (%) (Auto) 0.4 % (0.0-1.0) Neutrophils # (Auto) 5.0 (2.1-6.9) Lymphocytes # (Auto) 1.1 (1.0-3.2) Monocytes # (Auto) 0.7 (0.2-0.8) Eosinophils # (Auto) 0.1 (0.0-0.4) Basophils # (Auto) 0.0 (0.0-0.1) Absolute Immature Granulocyte (auto 0.03 x10e3/uL (0-0.1) Lab results reviewed: Yes (SHERRY CURRY NP) Procedures 12 Lead ECG Interpretation 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 Worker: Interpreted by ED physician (Claudia) Date: December 15, 2019 Time: 19:27 Prior SENIOR CREDIT ANALYST tracings: reviewed Rhythm: sinus rhythm Rate: normal BPM: 80 QRS axis: normal Clinical Impression: normal ECG (SHERRY CURRY NP) Critical Care Time Total Critical Care Time (min): 45 Critical care time exclusive o: separately billable procedures Critcal care necessary due to: metabolic failure Critcal care time spent by me: examination of patient (SHERRY CURRY NP) Assessment & Plan Reassessment Reassessment time: 17:46 Reassessment 54 y f presented to ed via ems c/o low h&h, hyperkalemia and hematuria x 1 wk - denies abd pain n/v/d fever cough - Dr Taylor in eval pt status - lab ekg type screen ordered 1923 severe sepsis uti / anemia / hyperkalemia / renal failure blood cultures drawn cefepime given 2100 - K+ 5.6 - pt medicated w/ kayexalate /calcium gluconate/ d50/ insulin (SHERRY CURRY NP) Assessment & Plan Final Impression: (1) HEMATURIA, UNSPECIFIED (2) Anemia (3) Renal failure, chronic (4) SEPSIS, UNSPECIFIED ORGANISM Assessment & Plan discussed pt presentation and plan of care and need for admit w/ Dr Torsten Weeks spoke w/ [facility] will admit (SHERRY CURRY NP) Depart Disposition: ADMITTED Last Vital Signs Date Time Temp Pulse Resp B/P (MAP) Pulse Ox O2 Delivery O2 Flow Rate FiO2 12/15/19 17:13 98.1 76 16 110/80 96 (SHERRY CURRY NP) Home Meds Active Scripts Levothyroxine Sodium (LEVOTHYROXINE SODIUM) 50 Mcg Tablet, 100 MCG PO DAILY, #60 TAB Prov:RODGER COLLINS NP 11/03/19 Meropenem (MERREM) 500 Mg Inj, 500 MG IV QAM for 14 Days Prov:RODGER COLLINS NP 11/02/19 Sodium Hypochlorite (DAKIN'S) 480 Ml Soln, 200 ML IR ONCE for 30 Days Prov:RODGER COLLINS NP 11/02/19 Famotidine/Pf (FAMOTIDINE 20 MG/2 ML VIAL) 20 Mg/2 Ml Vial, 20 MG IV BID for 30 Days, VIAL Prov:RODGER COLLINS NP 11/02/19 Docusate Sodium (COLACE) 100 Mg Cap, 100 MG PO BID for 30 Days, CAP Prov:RDOGER COLLINS NP 11/02/19 Balsam [place] Oil (VENELEX OINTMENT) 60 Gm Oint...g., 60 GM TP DAILY for 30 Days Prov:RODGER COLLINS NP 11/02/19 Ascorbic Acid (ASCORBIC ACID) 500 Mg Tablet, 500 MG PO BID for 30 Days Prov:RODGER COLLINS NP 11/02/19 Reported Medications Acetaminophen With Codeine (TYLENOL WITH CODEINE #4 TABLET) 1 Each Tablet, 1 TAB PO Q6H PRN for MODERATE PAIN (4-6) 10/31/19 Acetaminophen (ACETAMINOPHEN) 325 Mg Tablet, 650 MG PO Q6H PRN for Mild Pain (1- 3) or Fever>100.8 for 5 Days, TAB 10/31/19 Trazodone Hcl (TRAZODONE HCL) 50 Mg Tablet, 50 MG PO HS PRN for INSOMNIA, #30 TAB 10/31/19 Mirtazapine (REMERON) 15 Mg Tablet, 15 MG PO HS 10/31/19 Gabapentin (GABAPENTIN) 300 Mg Capsule, 300 MG PO BID, #60 CAP 10/31/19 Aspirin (ASPIR 81) 81 Mg Tablet.dr, 81 MG PO DAILY 12/07/18 Furosemide (FUROSEMIDE) 40 Mg Tablet, 40 MG PO DAILY, #30 TAB 12/07/18 Ferrous Sulfate (FERROUS SULFATE) 325 Mg Tablet.dr, 325 MG PO BID 12/07/18 Famotidine (FAMOTIDINE) 20 Mg Tab, 20 MG PO BID, #30 TAB 12/07/18 Sucralfate (SUCRALFATE) 1 Gm Tablet, 1 GM PO ACHS, TAB 12/07/18 Physician Attestation Provider Attestation The patient's history, exam findings, diagnostics, and a summary of any interventions or procedures was reviewed in detail with our SHONA. I personally interviewed and examined the patient, and I have reviewed and agree with the HPI andexam. My personal exam shows age-appropriate female, pale and dry mucosa, bilateral AKA's noted on exam. Patient noted to have hyperkalemia which was treated with D50, insulin, Kayexalate and calcium gluconate. There was concerns of severe sepsis at time of admission, patient received blood cultures prior to injection of ceftriaxone. Patient noted to have worsening renal failure which was a concern for organ dysfunction. Time of sepsis activated 1923 Lactic acid collected 2049, resulted at 2157: 0.9, no indication for repeat lactic acid Blood cultures obtained at 2047 Cefepime given at 2058 Patient hemodynamically stable at time of admission. I confirm the diagnosis as documented by the SHONA. I have reviewed and agree with the care plan articulated in the disposition section. (BERNICE WEEKS DO) SHERRY CURRY NP December 15, 2019 17:47 BERNICE WEEKS DO December 15, 2019 22:23
[2019-12-15 19:10] LABS: BASOPHILS % 0.4 % (0.0-1.0); EOSINOPHILS # (AUTO) 0.1 (0.0-0.4); EOSINOPHILS % 1.7 % (0.0-6.0); LYMPHOCYTES # (AUTO) 1.1 (1.0-3.2); LYMPHOCYTES % 15.3 % (18.0-39.1); MEAN CORPUSCULAR HEMOGLOBIN 27.8 pg (28-32); MEAN CORPUSCULAR HGB CONC 30.9 g/dL (31-35); MONOCYTES # (AUTO) 0.7 (0.2-0.8); MONOCYTES % 10.4 % (4.4-11.3); NEUTROPHILS % 71.8 % (38.7-80.0); PLATELET COUNT 92 x10e3/uL (140-360); RED CELL DISTRIBUTION WIDTH 16.3 % (11.7-14.4)
[2019-12-15 19:13] LABS: HEMATOCRIT 20.7 % (34.2-44.1); HEMOGLOBIN 6.4 g/dL (12.0-16.0)
[2019-12-15 19:23] LABS: CLARITY,URINE TURBID (CLEAR); COLOR,URINE RED (YELLOW); KETONES,URINE 1+ (NEGATIVE); LEUKOCYTE ESTERASE ,URINE LARGE (NEGATIVE); NITRITE,URINE NEGATIVE (NEGATIVE); PROTEIN,URINE DIPSTICK >=300 (NEGATIVE); URINE UROBILINOGEN 2 mg/dL (0.2 - 1)
[2019-12-15 19:24] LABS: BACTERIA,URINE MODERATE /HPF; BILIRUBIN,URINE LARGE (NEGATIVE); RBC,URINE >50 /HPF (0-5)
[2019-12-15 19:25] LABS: ALANINE AMINOTRANSFERASE 24 IU/L (0-55); ALBUMIN/GLOBULIN RATIO 0.5 (0.8-2.0); ALKALINE PHOSPHATASE 512 IU/L (40-150); ANION GAP 14.6 mmol/L (8-16); BLOOD UREA NITROGEN 50 mg/dL (7-26); BUN/CREATININE RATIO 15 (6-25); CALCIUM 8.1 mg/dL (8.4-10.2); CARBON DIOXIDE 26 mmol/L (22-29); CHLORIDE 91 mmol/L (98-107); CREATINE KINASE 47 IU/L (29-168); CREATININE, SERUM 3.41 mg/dL (0.57-1.11); EST GLOMERULAR FILTRATION RATE 14 ML/MIN (60-); GLUCOSE 93 mg/dL (74-118); SODIUM 126 mmol/L (136-145)
[2019-12-15 19:30] LABS: POTASSIUM 5.6 mmol/L (3.5-5.1)
[2019-12-15] MEDS ORDERED: SODIUM CHLORIDE 0.9% 250ML 250 ML IV ONE ×2 (19:30)
[2019-12-15] MEDS ORDERED: DEXTROSE 50% SYRINGE 50 ML IV STA (20:54)
[2019-12-15] MEDS ORDERED: CEFEPIME 1GM/NS 0.9% 50 ML 50 ML IV SCH (21:00)
[2019-12-15] MEDS ORDERED: CALCIUM GLUCONATE 10% INJ 4.65 MEQ in SODIUM CHLORIDE 0.9% 50ML 50 ML IV ONE (21:00)
[2019-12-15] MEDS ORDERED: INSULIN REGULAR, HUMAN 100 UNIT/1 ML 3ML VIAL IV ONE (21:00)
[2019-12-15] MEDS ORDERED: SOD POLYSTYRENE SULFONATE SUSP 15 GM/60 ML BTL PR ONE (21:00)
--- OUTSIDE RECORDS SUMMARY | 2019-12-15 22:48 | XMS REPORT ---
Author Author [facility] t Organization [facility] Address [address] [place] [address] Phone Unavailable Care Team Providers Care Correctional Case Records Supervisor Name Role Phone MD Sofya DEL REAL MD PCP SHIRIN KNOTT Attphys Unavailable Jace HEARN Attphys Unavailable LAUREN CALLOWAY Attphys Unavailable KIM DILL Attphys Unavailable SHIRIN KNOTT Admphys Unavailable KIM DILL Admphys Unavailable Payers Payer Name Policy Type Policy Number Effective Date Expiration Date S jim [facility] 2019 00:00:00 [facility] NA 2019 00:00 :00 [facility] Care Improvement Plus [id number] 2003 00:00:00 [facility] Medicare A & B [id number] 2003 00:00:00 [facility] Problems Condition Name Condition Details Condition Category Status Onset Date Resolution Date Last Treatment Date Treating Clinician Comments Source Anemia Anemia Problem Active [facility] 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 Pro blem Active [facility] Pressure injury of sacral region, stage 4 Decubitus ul cer of sacral region, stage 4 Problem Active [facility] Pressure injury of skin with infection Decubitus ulcer, infected Pr oblem Active [facility] Pulmonary edema Pulmonary edema Problem Active [facility] Respiratory failure Respiratory failure Problem Active [facility] Urinary tract infection UTI (urinary tract infection) Problem Active [facility] Hypervolemia Volume overload Problem Active [facility] Osteomyelitis Osteomyelitis Problem Active [facility] Bilateral cellulitis of lower leg Bilateral lower leg cellulitis Pr oblem Active [facility] Fever Fever Problem Active [facility] Hyperkalemia Hyperkalemia Problem Active [facility] Chronic renal failure Renal failure, chronic Problem Active [facility] Altered mental status Problem Active [facility] Cellulitis Problem Active [facility] Gangrene Problem Active [facility] Allergies, Adverse Reactions, Alerts Allergy Name Allergy Type Status Severity Reaction(s) Onset Date Inacti ve Date Treating Clinician Comments Source cephalexin DA Active [place] 2019-08-10 00:00:00 [facility] cephalexin DA Active MO 2019-07-27 00:00:00 [facility] cephalexin DA Active MO 2019-03-19 00:00:00 [facility] Cephalexin Allergy to substance Active Mild 2019-01-03 00:00:00 [facility] cephalexin DA Active MO 2018-09-21 00:00:00 [facility] cephalexin DA Active MO 2018-07-07 00:00:00 [facility] cephalexin DA Active U 2018-03-31 00:00:00 [facility] cephalexin DA Active U 2017-12-25 00:00:00 [facility] Social History Social Habit Start Date Stop Date Quantity Comments Source Sex Assigned At 1965 00:00:00 1965 00:00:00 Female [facility] Medications Ordered Medication Name Filled Medication Name Start Date Stop Da te Current Medication? Ordering Clinician Indication Dosage Frequency Signature (SIG) Comments Components Source Levothyroxine Sodium Levothyroxine Sodium 2019-11-03 13:18:00 Yes 100 Daily [facility] Ascorbic Acid Ascorbic Acid 2019-11-02 16:59:00 Yes 500 Twice A Day [facility] Balm [place] Oil (Venelex Ointment) 60 Gm OINT.. .G. Balsam [place] Oil (Venelex Ointment) 60 Gm OINT...G. 2019-11-02 16:59:00 Yes 6 0 Daily [facility] Docusate Sodium (Colace) 100 Mg CAP Docusate Sodium (Colace) 100 Mg CAP 2019-11-02 16:59:00 Yes 100 Twice A Day [facility] Famotidine/Pf (Famotidine 20 Mg/2 Ml Vial) 20 Mg/2 Ml VIAL Famotidine/Pf (Famotidine 20 Mg/2 Ml Vial) 20 Mg/2 Ml VIAL 2019-11-02 16:59:00 Yes 20 Twice A Day [facility] Meropenem (Merrem) 500 Mg INJ Meropenem (Merrem) 500 Mg INJ 2019 16:59:00 Yes 500 Every Morning [facility] Sodium Hypochlorite (Dakin's) 480 Ml SOLN Sodium Hypoc hlorite (Dakin's) 480 Ml SOLN 2019-11-02 16:59:00 Yes 200 Once [facility] Clindamycin Hcl Clindamycin Hcl 2019-02-05 21:26:00 2019-10-31 00:00:00 No 300 Every 6 Hours [facility] Acetaminophen Acetaminophen Yes 650 Every 6 Hours as needed for Mild Pain (1-3) Or Fever>100.8 [facility] Acetaminophen With Codeine (Tylenol With Codeine #4 Ta blet) 1 Each TABLET Acetaminophen With Codeine (Tylenol With Codeine #4 Tablet) 1 Each TABLET Yes 1 Every 6 Hours as needed for Moderate Srinivas n (4-6) [facility] Aspirin (Aspir 81) 81 Mg TABLET. Aspirin (Aspir 81) 81 Mg TABLET. Yes 81 Daily [facility] Famotidine Famotidine Yes 20 Twice A Day [facility] Ferrous Sulfate Ferrous Sulfate Yes 325 Twice A Day [facility] Furosemide Furosemide Yes 40 Daily [facility] Gabapentin Gabapentin Yes 300 Twice A Day [facility] Mirtazapine (Remeron) 15 Mg TABLET Mirtazapine (Remeron) 15 Mg TABLET Yes 15 Bedtime [facility] Sucralfate Sucralfate Yes 1 Before Meals And A t Bedtime [facility] Trazodone Hcl Trazodone Hcl Yes 50 Bedtime as n eeded for Insomnia [facility] Levothyroxine Sodium Levothyroxine Sodium 2019-11-03 00:00:00 No 75 Daily [facility] Acetic Acid Acetic Acid 2019-11-02 00:00:00 No 1 Q tues And Fri [facility] Levofloxacin (Levaquin) 500 Mg TABLET Levofloxacin (Levaquin) 50 0 Mg TABLET 2019-11-02 00:00:00 No 250 Daily [facility] Neomycin Sulfate Neomycin Sulfate 2019-11-02 00:00:00 No 500 Three Times A Day [facility] Potassium Chloride Potassium Chloride 2019-11-02 00:00:00 No 20 Daily [facility] Ascorbic Acid Ascorbic Acid 2019-10-31 00:00:00 No 500 Daily [facility] Bupropion Hcl (Wellbutrin Sr) 150 Mg TABLET.ER Bupropi on Hcl (Wellbutrin Sr) 150 Mg TABLET.ER 2019-10-31 00:00:00 No 100 Every 12 Ho urs [facility] Hydrocodone Bit/Acetaminophen ([place] 5-325 Tablet) 1 E ach TABLET Hydrocodone Bit/Acetaminophen ([place] 5-325 Tablet) 1 Each TABLET 2019-10-31 00: 00:00 No 1 Every 6 Hours as needed for Mild Pain (1-3) Or Fever>100.8 [facility] Mirtazapine (Remeron) 15 Mg TAB.RAPDIS Mirtazapine (Remeron) 15 Mg TAB.RAPDIS 2019-10-31 00:00:00 No 7.5 Bedtime [facility] Multivitamin (Multi-Vitamin Daily) 1 Each TABLET Multi vitamin (Multi-Vitamin Daily) 1 Each TABLET 2019-10-31 00:00:00 No 1 Ema ly [facility] Rifaximin (Xifaxan) 550 Mg TABLET Rifaximin (Xifaxan) 550 Mg TAB LET 2019-10-31 00:00:00 No 550 Every 12 Hours [facility] Thiamine Mononitrate (Vitamin B-1) 100 Mg TABLET Gonzalez ine Mononitrate (Vitamin B-1) 100 Mg TABLET 2019-10-31 00:00:00 No 100 Daily [facility] Tramadol Hcl (Ultram) 50 Mg TABLET Tramadol Hcl (Ultram) 50 Mg T ABLET 2019-10-31 00:00:00 No 50 Every 6 Hours as needed for Mild Pain (1-3) Or Fever>100.8 [facility] Zinc Sulfate Zinc Sulfate 2019-10-31 00:00:00 No 220 Daily [facility] Vital Signs Vital Name Observation Time Observation Value Comments Source Body Temperature 2019-12-08 12:00:00 97.4 [degF] [facility] Weight 2019-12-07 01:27:00 142.01 [lb_av] [facility] BMI (Body Mass Index) 2019-12-07 01:27:00 26.0 kg/m2 [facility] Procedures Procedure Date / Time Performed Performing Clinician William garcia Ultrasound guidance for vascular access 2019-12-01 00:00:00 [facility] Computed tomography of brain without radiopaque contrast 2019-10 00:00:00 [facility] Ultrasound, renal 2019-10-31 00:00:00 KATJA MAGANA [facility] TRANSFUSE NONAUT PLATELETS IN PERIPH VEIN, OPEN 2019-08-20 00:00 :00 [facility] TRANSFUSE NONAUT RED BLOOD CELLS IN PERIPH VEIN, OPEN 2019-08-20 00:00:00 [facility] Computed tomography of brain without radiopaque contrast 201 03-29-07 00:00:00 BERENICE HEARN [facility] Computed tomography of cervical spine without contrast 05-25 00:00:00 DHIRAJ BERENICE Mccormick [facility] Encounters Start Date/Time End Date/Time Encounter Type Admission Type [facility] Care Department Encounter ID Source 2019-11-15 12:54:00 2019-12-08 20:05:00 Discharged Inpatient [address] [facility] [id number] [facility] - Patients [facility] 2019-10-30 23:29:00 2019-11-03 17:13:00 Discharged Inpatient [address] [facility] [id number] [facility]ilia [facility] 2019-08-25 13:36:00 2019-08-25 13:36:00 Registered [facility] [id number] [facility] 2019-08-14 17:31:00 2019-08-21 18:10:00 Discharged Inpatient [address] [facility] [id number] [facility] Cecilia k[facility] 2019-05-25 19:41:00 2019-05-25 22:47:00 [facility]arted Emergency [id number] [facility] 2019-03-18 13:03:00 2019-03-18 16:50:00 Departed Emergency Room [address] [facility] [id number] [facility] 2019-02-05 20:55:00 2019-02-05 22:33:00 Departed Emergency Room [facility] [id number] [facility]. [facility] - Patients [facility] 2019-01-03 05:42:00 2019-01-07 16:57:00 Discharged Inpatient 1 JAMIE KIM [facility] [id number] [facility] 2018-12-07 11:30:00 2018-12-10 22:00:00 Discharged Inpatient 1 KIM IDLL [facility] [id number] [facility] Results Test Description Test Time Test Comments Results Result Comments Source Blood leukocytes automated count (number/volume) 2019-12-08 05:50:00 Test Item White Blood Count (test code = 6690-2) 3.50 4.8-10.8 [facility] count (number/volume)2019-12-08 05:50:00* Test Item Value Reference Range Interpretation Comments Red Blood Count (test code = 789-8) 3.18 3.6-5.1 [facility] measurement (moles/volume)2019-12-08 05:50:00* Test Item Value Reference Range Interpretation Comments Hemoglobin (test code = 34089-1) 8.7 12.0-16.0 [facility] blood hematocrit (volume fraction)2019-12-08 05:50:00* Test Item Value Reference Range Interpretation Comments Hematocrit (test code = 4544-3) 28.4 34.2-44.1 [facility] erythrocyte mean corpuscular [id number] 05:50:00* Test Item Value Reference Range Interpretation Comments Mean Corpuscular Volume (test code = 787-2) 89.3 81-99 [facility] eryth[facility] mean corpuscular hemoglobin (mass per erythrocyte)2019-12-08 05:50:00* Test Item Value Reference Range Interpretation Comments Mean Corpuscular Hemoglobin (test code = 785-6) 27.4 28-32 [facility] erythrocyte mean corpuscular hemoglobin concentration measurement (mass/volume)2019-12-08 05:50:00* Test Item Value Reference Range Interpretation Comments Mean Corpuscular Hemoglobin Concent (test code = 786-4) 30.6 31-35 [facility] HospitalRDW IbdQw-Yfw2140-24-22 05:50:00* Test Item Value Reference Range Interpretation Comments Red Cell Distribution Width (test code = 35703-4) 15.1 11.7 -14.4 [facility] blood platelet count (count/volume)2019-12-08 05:50:00* Test Item Value Reference Range Interpretation Comments Platelet Count (test code = 777-3) 82 140-360 [facility] blood segmented neutrophil count as percentage of total geqwgscbtg9394-60-00 05:50:00* Test Item Value Reference Range Interpretation Comments Neutrophils (%) (Auto) (test code = 10215-4) 54.3 38.7-80.0 [facility] blood lymphocyte count as percentage ot total pnvxkwostr2067-44-32 05:50:00* Test Item Value Reference Range Interpretation Comments Lymphocytes (%) (Auto) (test code = 736-9) 29.1 18.0-39.1 [facility] blood monocyte count as percentage of total vjhqrtdppx3890-84-09 05:50:00* Test Item Value Reference Range Interpretation Comments Monocytes (%) (Auto) (test code = 5905-5) 12.3 4.4-11.3 [facility]Autom[facility] blood eosinophil count as percentage of total gwqracmeuc7005-53-43 05:50:00* Test Item Value Reference Range Interpretation Comments Eosinophils (%) (Auto) (test code = 713-8) 3.1 0.0-6.0 [facility] HospitalAutomated blood basophil count as percentage of total glhscaplio8768-98-76 05:50:00* Test Item Value Reference Range Interpretation Comments Basophils (%) (Auto) (test code = 706-2) 0.9 0.0-1.0 [facility] HospitalFluoroscopic procedure less than one hour jemiuodf9360-69-79 05:50:00* Test Item Value Reference Range Interpretation Comments IM GRANULOCYTES % (test code = IM GRANULOCYTES %) 0.3 0.0- 1.0 [facility]Autom[facility] blood neutrophil count 2019-12-08 05:50:00* Test Item Value Reference Range Interpretation Comments Neutrophils # (Auto) (test code = 751-8) 1.9 2.1-6.9 [facility]Blood lymphocytes count (number/volume) 2019-12-08 05:50:00* Test Item Value Reference Range Interpretation Comments Lymphocytes # (Auto) (test code = 91718-1) 1.0 1.0-3.2 [facility] HospitalBlood monocytes automated count (number/volume)2019-12-08 05:50:00* Test Item Value Reference Range Interpretation Comments Monocytes # (Auto) (test code = 742-7) 0.4 0.2-0.8 [facility] HospitalAutomated blood eosinophil count 2019-12-08 05:50:00* Test Item Value Reference Range Interpretation Comments Eosinophils # (Auto) (test code = 711-2) 0.1 0.0-0.4 [facility] HospitalAutomated blood basophil count (count/volume)2019-12-08 05:50:00* Test Item Value Reference Range Interpretation Comments Basophils # (Auto) (test code = 704-7) 0.0 0.0-0.1 [facility] HospitalFluoroscopic procedure less than one hour jamrcqmh3496-73-14 05:50:00* Test Item Value Reference Range Interpretation Comments Absolute Immature Granulocyte (auto (patel t code = Absolute Immature Granulocyte (auto) 0.01 0-0.1 [facility] sodium measurement (moles/volume)2019-12-08 05:50:00* Test Item Value Reference Range Interpretation Comments Sodium Level (test code = 2951-2) 138 136-145 [facility] plasma potassium measurement (moles/volume)2019-12-08 05:50:00* Test Item Value Reference Range Interpretation Comments Potassium Level (test code = 2823-3) 4.0 3.5-5.1 [facility] plasma chloride measurement (moles/volume)2019-12-08 05:50:00* Test Item Value Reference Range Interpretation Comments Chloride Level (test code = 2075-0) 103 98-107 [facility] plasma carbon dioxide, total measurement (moles/volume)2019-12-08 05:50:00* Test Item Value Reference Range Interpretation Comments Carbon Dioxide Level (test code = 2028-9) 25 22-29 [facility] or plasma anion ago6550-51-71 05:50:00* Test Item Value Reference Range Interpretation Comments Anion Gap (test code = 89659-3) 14.0 8-16 [facility] plasma urea nitrogen measurement (mass/volume)2019-12-08 05:50:00* Test Item Value Reference Range Interpretation Comments Blood Urea Nitrogen (test code = 3094-0) 39 7-26 [facility] plasma creatinine measurement (mass/volume)2019-12-08 05:50:00* Test Item Value Reference Range Interpretation Comments Creatinine (test code = 2160-0) 2.00 0.57-1.11 [facility] or plasma urea nitrogen/creatinine mass bpjnb5138-37-56 05:50:00* Test Item Value Reference Range Interpretation Comments BUN/Creatinine Ratio (test code = 3097-3) 20 6-25 [facility] HospitalEstimated glomerular filtration rate (GFR) lfzdmtclghlrv1904-41-72 05:50:00* Test Item Value Reference Range Interpretation Comments Estimat Glomerular Filtration Rate (test code = 267251855) 26 >60 Ranges were taken from the National Kidney Disease Education Program and the [facility] literature.Reference ranges:60 or greater: Ceupcc40-90 ( for 3 consecutive months): Chronic kidney disease 15 or less: Kidney failureMayhill HospitalGlucose ojqvyhrccfs9277-97-06 05:50:00* Test Item Value Reference Range Interpretation Comments Glucose Level (test code = XIB7420) 76 74-118 [facility] or plasma calcium measurement (mass/volume)2019-12-08 05:50:00* Test Item Value Reference Range Interpretation Comments Calcium Level (test code = 33923-9) 8.3 8.4-10.2 [facility] HospitalRETROGRADE ZIBKWBURM1017-23-68 11:50:00 [facility] [address] [place] [address] Patient Name: SIOBHAN BARBOSA MR #: [id number] : 1965 Age/Sex: 54/F Req #: [id number] Adm Physician: SHIRIN KNOTT MD Ordered by: LETICIA LUNA MD Report #: [id number] Location: MED/SURG3 [facility]/Bed: 286 Procedure: [id number] DX/RETROGR JERICHO PYELOGRAM Exam Date: 12/07/19 Exam Time: 1010 REPORT STATUS: Signed OR Fluorosco py: IMPRESSION: Fluoroscopy service provided in the OR. Interpretation not requested. Signed by: Emeka Jackson MD on 12/07/2019 11:51 AM Dict ated By: EMKEA JACKSON MD 1151 COPY TO: CELESTINE LUNA MD Serum or plasma magnesium measurement (mass/volume)2019-12-07 05:35:00* Test Item Value Reference Range Interpretation Comments Magnesium Level (test code = 95528-2) 2.0 1.3-2.1 [facility] plasma total bilirubin measurement (mass/volume)2019-12-07 05:35:00* Test Item Value Reference Range Interpretation Comments Total Bilirubin (test code = 1975-2) 1.2 0.2-1.2 [facility] HospitalFluoroscopic procedure less than one hour tnuljqvm7902-55-03 05:35:00* Test Item Value Reference Range Interpretation Comments Aspartate Amino Transf (AST/SGOT) (test code = Aspartate Amino Transf (AST/SGOT)) 50 5-34 [facility] or plasma alanine aminotransferase measurement (enzymatic activity/volume)2019-12-07 05:35:00* Test Item Value Reference Range Interpretation Comments Alanine Aminotransferase (ALT/SGPT) (test code = 1742-6) 28 0-55 [facility] or plasma protein measurement (mass/volume)2019-12-07 05:35:00* Test Item Value Reference Range Interpretation Comments Total Protein (test code = 2885-2) 7.0 6.5-8.1 [facility] or plasma albumin measurement (mass/volume)2019-12-07 05:35:00* Test Item Value Reference Range Interpretation Comments Albumin (test code = 1751-7) 2.3 3.5-5.0 [facility] HospitalPlasma globulin measurement (mass/volume) 2019-12-07 05:35:00* Test Item Value Reference Range Interpretation Comments Globulin (test code = 63577-2) 4.7 2.3-3.5 [facility] or plasma albumin/globulin mass qenfi5896-56-12 05:35:00* Test Item Value Reference Range Interpretation Comments Albumin/Globulin Ratio (test code = 1759-0) 0.5 0.8-2.0 [facility] or plasma alkaline phosphatase measurement (enzymatic activity/volume)2019-12-07 05:35:00* Test Item Value Reference Range Interpretation Comments Alkaline Phosphatase (test code = 6768-6) 691 40-150 [facility] HospitalABDOMEN-1VIEW (KUB)2019-12-06 00:20:00 [facility] [address] [place] [address] Patient Name: SIOBHAN BARBOSA MR #: [id number] : 1965 Age/Sex: 54/F Req #: [id number] Adm Physician: SHIRIN KNOTT MD Ordered by: MICHAEL FLOWERS MD Report #: [id number] Location: MED/SURG3 [facility]/Bed: 286-1 Procedure: [id number] DX/ABDOMEN -1VIEW (KUB) Exam Date: 12/05/19 Exam Time: 2324 REPORT STATUS: Signed EXAM: Abdomen Radiograph 1 View INDICATION: abd distension COMPARISON: KUB 0 and 08/15/2019. FINDINGS: Limited study due to patient body habitus a nd underpenetration. The right lateral hemiabdomen and pelvis is not completel y included in the qrqmp-jq-usbs. The bowel gas pattern is nonspecific. N o evidence of large volume pneumoperitoneum. Partially visualized left-si ded internal ureteral stent. Left sided staghorn calculus and IVC filter are b jimena seen on prior KUB from 08/15/2019. Partially visualized cardiomegaly. No gross acute osseous abnormality. IMPRESSION: Limited study. T he bowel gas pattern is nonspecific. Signed by: Dr. Lucretia Gutiérrez MD on 2019 12:31 AM Dictated By: LUCRETIA GUTIÉRREZ MD Transcribed By: JENNIFER on 12/06/1930 COPY T O: MICHAEL FLOWERS MD Serum or plasma hepatitis C virus RNA detection by probe and target amplification [id number] 04:38:00* Test Item Value Reference Range Interpretation Comments Hepatitis C RNA Qualitative (PCR) (test code = 97871-7) Negative Negative Negative: HCV RNA Not DetectedPerformed at: [facility] Lab[address] [id number] Director: Latoya Sidhu MD, Phone: [phone] [address] [place], [place] [address]Random serum or plasma vancomycin measurement (mass/volume)2019-12-02 04:32:00* Test Item Value Reference Range Interpretation Comments Random Vancomycin Level (test code = 08895-7) 14.4 [facility] HospitalIR [id number] 16:24:00 [facility] [address] [address] Patient Name: SIOBHAN BARBOSA MR #: [id number] : 1965 Age/Sex: 54/F Req #: [id number] Adm Physician: SHIRIN KNOTT MD Ordered by: TERRENCE ARCHIBALD [employer] Report #: [id number] Location[facility]Bed[facility] Procedure: [id number] DX/IR CONSU LT Exam Date: Exam Time: REPORT STATUS: Signed PROCEDURE: Tunneled central venous catheter placement Procedural Personnel Attending physician(s): Isael Gonzalez MD Fellow physician(s): None Resident physician(s): None Advanced prac ephraim provider(s): None Pre-procedure diagnosis: Altered mental status Pos t-procedure diagnosis: Same Indication: Intravenous fluid administration, intr avenous medications Additional clinical history: Poor venous access Compl ications: No immediate complications. IMPRESSION: Insertion of right-s ided dual-lumen tunneled Proline power-injectable catheter, with tip in the ex pected location of the cavoatrial junction. Plan: The catheter may be used immediately. ____ PROCEDURE SUMMARY: - Venous access with ultrasound guidance - Tunn eled central venous catheter insertion with fluoroscopic guidance - Additional procedure(s): None PROCEDURE DETAILS: Pre-procedure Consent: Inform ed consent for the procedure including risks, benefits and alternatives was ob tained and time-out was performed prior to the procedure. Preparation (MIPS): The site was prepared and draped using all elements of maximal sterile barrier technique including sterile gloves, sterile gown, cap, mask, large sterile sh eet, sterile ultrasound probe cover, hand hygiene and cutaneous antisepsis wit h 2% chlorhexidine. Medical reason for site preparation exception (MIPS): Not applicable Anesthesia/sedation Level of anesthesia/sedation: Moderate se dation (conscious sedation) 0.5mg Versed, 25mcg Fentanyl Anesthesia/sedation administered by: Independent trained observer under attending supervision wit h continuous monitoring of the patient?s level of consciousness and physiologi c status Total intra-service sedation time (minutes): 30 Access Local a nesthesia was administered. The vessel was sonographically evaluated and deter mined to be patent. Real time ultrasound was used to visualize needle entry in to the vessel and a permanent image was stored. Vein accessed: Internal jugula r vein Access technique: Micropuncture set with 21 gauge needle Catheter placement An incision was made near the venous access site and the catheter wa s tunneled subcutaneously to the venous access site and trimmed to appropriate length. The catheter was advanced via a peel-away sheath into the vein under fluoroscopic guidance. Catheter tip location was fluoroscopically verified and a permanent image was stored. Catheter placed: Medcomp Proline Catheter s ize (Bermudian): 6 Catheter flush: Normal saline Closure A sterile dressin g was applied. Access site closure technique: Tissue adhesive Catheter secur ement technique: Non-absorbable suture Radiation Dose Fluoroscopy time (m inutes): 0.2 Reference air kerma (mGy): 2.1 Additional Details Addit ional description of procedure: None Equipment details: None Specimens remov ed: None Estimated blood loss (mL): Less than 10 Standardized report: _Tu nneledCatheter_v3 Attestation Signer name: Isael Gonzalez MD I attest that I was present for the entire procedure. I reviewed the stored images and agre e with the report as written. Signed by: Isael Gonzalez MD on 12/01/2019 4:26 PM Dictated By: ISAEL GONZALEZ MD [id number] Transcribed By: JENNIFER on 12/01/195 COPY TO: TERRENCE CONNORS NP TUNNELLED CVC INSERT W/O [id number] 16:24:00 [place] [address] Patient Name: SIOBHAN BARBOSA MR #: [id number] : 1965 Age/Sex: 54/F Req #: [id number] Adm Physician: SHIRIN KNOTT MD Ordered by: TERRENCE ARCHIBALD NP Report #: [id number] Location: [facility]Bed: ICU [facility] Procedure: [id number] IR/TUNNELLE D CVC INSERT W/O PORT Exam Date: Exam Time: REPORT STATUS: Signed PROCEDURE: Tunne led central venous catheter placement Procedural Personnel Attending zoey pak(s): Isael Gonzalez MD Fellow physician(s): None Resident physician(s): Alisha morin Advanced practice provider(s): None Pre-procedure diagnosis: Altered mental status Post-procedure diagnosis: Same Indication: Intravenous fluid a dministration, intravenous medications Additional clinical history: Poor venou s access Complications: No immediate complications. IMPRESSION: I nsertion of right-sided dual-lumen tunneled Proline power-injectable catheter, with tip in the expected location of the cavoatrial junction. Plan: The catheter may be used immediately. PROCEDURE SUMMARY: - Venous access with ultrasoun d guidance - Tunneled central venous catheter insertion with fluoroscopic guid ance - Additional procedure(s): None PROCEDURE DETAILS: Pre-procedur e Consent: Informed consent for the procedure including risks, benefits and alternatives was obtained and time-out was performed prior to the procedure. P reparation (MIPS): The site was prepared and draped using all elements of maxi mal sterile barrier technique including sterile gloves, sterile gown, cap, mas k, large sterile sheet, sterile ultrasound probe cover, hand hygiene and cutan eous antisepsis with 2% chlorhexidine. Medical reason for site preparation ex ception (MIPS): Not applicable Anesthesia/sedation Level of anesthesia/se dation: Moderate sedation (conscious sedation) 0.5mg Versed, 25mcg Fentanyl Anesthesia/sedation administered by: Independent trained observer under attend ing supervision with continuous monitoring of the patient?s level of conscious ness and physiologic status Total intra-service sedation time (minutes): 30 Access Local anesthesia was administered. The vessel was sonographically ev aluated and determined to be patent. Real time ultrasound was used to visualiz e needle entry into the vessel and a permanent image was stored. Vein access ed: Internal jugular vein Access technique: Micropuncture set with 21 gauge ne edle Catheter placement An incision was made near the venous access site and the catheter was tunneled subcutaneously to the venous access site and tri mmed to appropriate length. The catheter was advanced via a peel-away sheath i nto the vein under fluoroscopic guidance. Catheter tip location was fluoroscop ically verified and a permanent image was stored. Catheter placed: Medcomp P roline Catheter size (Bermudian): 6 Catheter flush: Normal saline Closure A sterile dressing was applied. Access site closure technique: Tissue adhesi ve Catheter securement technique: Non-absorbable suture Radiation Dose Fluoroscopy time (minutes): 0.2 Reference air kerma (mGy): 2.1 Additio nal Details Additional description of procedure: None Equipment details: Non e Specimens removed: None Estimated blood loss (mL): Less than 10 Standard ized report: SIR_TunneledCatheter_v3 Attestation Signer name: Isael Gonzalez MD I attest that I was present for the entire procedure. I reviewed the store d images and agree with the report as written. Signed by: Isael douglas MD on 12/01/2019 4:26 PM Dictated By: ISAEL GONZALEZ MD Electronically Sig rosi By: ISAEL GONZALEZ MD on 12/01/191625 Transcribed By: JENNIFER on 12/01/191625 COPY TO: TERRENCE ARCHIBALD NP FLURO KALEY CENT RICHELEL PLMT OR REM 2019-12-01 16:24:00 [facility] [address] [place] [address] Patient Name: SIOBHAN BARBOSA MR #: [id number] : 1965 Age/Sex: 54/F Req #: [id number] Adm Physician: SHIRIN KNOTT MD Ordered by: TERRENCE ARCHIBALD NP Report #: [id number] [facility]: [facility]Bed: [facility] Procedure: IR/FLURO I CENT RICHELLE PLMT OR REM Exam Date: 12/01/19 Exam Time : 1200 REPORT STATUS: Signed PRO CEDURE: Tunneled central venous catheter placement Procedural Personnel Attending physician(s): Isael Gonzalez MD Fellow physician(s): None Resident ph ysician(s): None Advanced practice provider(s): None Pre-procedure diagno sis: Altered mental status Post-procedure diagnosis: Same Indication: Intrav enous fluid administration, intravenous medications Additional clinical histor y: Poor venous access Complications: No immediate complications. IMPRE SSION: Insertion of right-sided dual-lumen tunneled Proline power-injectabl e catheter, with tip in the expected location of the cavoatrial junction. Plan: The catheter may be used immediately. PROCEDURE SUMMARY: - Venous access w ith ultrasound guidance - Tunneled central venous catheter insertion with fluo roscopic guidance - Additional procedure(s): None PROCEDURE DETAILS: Pre-procedure Consent: Informed consent for the procedure including risks, be nefits and alternatives was obtained and time-out was performed prior to the p rocedure. Preparation (MIPS): The site was prepared and draped using all eleme nts of maximal sterile barrier technique including sterile gloves, sterile luz maria n, cap, mask, large sterile sheet, sterile ultrasound probe cover, hand hygien e and cutaneous antisepsis with 2% chlorhexidine. Medical reason for site p reparation exception (MIPS): Not applicable Anesthesia/sedation Level of anesthesia/sedation: Moderate sedation (conscious sedation) 0.5mg Versed, 25mc g Fentanyl Anesthesia/sedation administered by: Independent trained observer u nder attending supervision with continuous monitoring of the patient?s level o f consciousness and physiologic status Total intra-service sedation time (mi nutes): 30 Access Local anesthesia was administered. The vessel was sonog raphically evaluated and determined to be patent. Real time ultrasound was use d to visualize needle entry into the vessel and a permanent image was stored. Vein accessed: Internal jugular vein Access technique: Micropuncture set wit h 21 gauge needle Catheter placement An incision was made near the venous access site and the catheter was tunneled subcutaneously to the venous access site and trimmed to appropriate length. The catheter was advanced via a peel- away sheath into the vein under fluoroscopic guidance. Catheter tip location w as fluoroscopically verified and a permanent image was stored. Catheter plac ed: Medcomp Proline Catheter size (Bermudian): 6 Catheter flush: Normal saline Closure A sterile dressing was applied. Access site closure technique: Tissue adhesive Catheter securement technique: Non-absorbable suture Radi ation Dose Fluoroscopy time (minutes): 0.2 Reference air kerma (mGy): 2.1 Additional Details Additional description of procedure: None Equipment details: None Specimens removed: None Estimated blood loss (mL): Less than 10 Standardized report: SIR_TunneledCatheter_v3 Attestation Signer name : Isael Gonzalez MD I attest that I was present for the entire procedure. I revie wed the stored images and agree with the report as written. Signed by: Isael Gonzalez MD on 12/01/2019 4:26 PM Dictated By: ISAEL rhoades Signed By: ISAEL GONZALEZ MD on 12/01/191625 Transcribed By: JENNIFER on 12/01/191625 COPY TO: TERRENCE ARCHIBALD WATCH DIAL STONER GUIDANCE FOR VASCULAR [id number] 16:24:00 [place] [address] Patient Name: SIOBHAN BARBOSA MR #: [id number] : 1965 Age/Sex: 54/F Req #: [id number] Adm Physician: SHIRIN KNOTT MD Ordered by: BREANNA KIRBY MD Report #: [id number] Location: ICU Room/Bed: ICU [facility] Procedure: [id number] / NI CASTILLO FOR VASCULAR ACCES Exam Date: 12/01/19 Exam Time : 1221 REPORT STATUS: Signed PRO CEDURE: Tunneled central venous catheter placement Procedural Personnel Attending physician(s): Isael Gonzalez MD Fellow physician(s): None Resident ph ysician(s): None Advanced practice provider(s): None Pre-procedure diagno sis: Altered mental status Post-procedure diagnosis: Same Indication: Intrav enous fluid administration, intravenous medications Additional clinical histor y: Poor venous access Complications: No immediate complications. IMPRE SSION: Insertion of right-sided dual-lumen tunneled Proline power-injectabl e catheter, with tip in the expected location of the cavoatrial junction. Plan: The catheter may be used immediately. PROCEDURE SUMMARY: - Venous access w ith ultrasound guidance - Tunneled central venous catheter insertion with fluo roscopic guidance - Additional procedure(s): None PROCEDURE DETAILS: Pre-procedure Consent: Informed consent for the procedure including risks, be nefits and alternatives was obtained and time-out was performed prior to the p rocedure. Preparation (MIPS): The site was prepared and draped using all eleme nts of maximal sterile barrier technique including sterile gloves, sterile luz maria n, cap, mask, large sterile sheet, sterile ultrasound probe cover, hand hygien e and cutaneous antisepsis with 2% chlorhexidine. Medical reason for site p reparation exception (MIPS): Not applicable Anesthesia/sedation Level of anesthesia/sedation: Moderate sedation (conscious sedation) 0.5mg Versed, 25mc g Fentanyl Anesthesia/sedation administered by: Independent trained observer u nder attending supervision with continuous monitoring of the patient?s level o f consciousness and physiologic status Total intra-service sedation time (mi nutes): 30 Access Local anesthesia was administered. The vessel was sonog raphically evaluated and determined to be patent. Real time ultrasound was use d to visualize needle entry into the vessel and a permanent image was stored. Vein accessed: Internal jugular vein Access technique: Micropuncture set wit h 21 gauge needle Catheter placement An incision was made near the venous access site and the catheter was tunneled subcutaneously to the venous access site and trimmed to appropriate length. The catheter was advanced via a peel- away sheath into the vein under fluoroscopic guidance. Catheter tip location w as fluoroscopically verified and a permanent image was stored. Catheter plac ed: Medcomp Proline Catheter size (Bermudian): 6 Catheter flush: Normal saline Closure A sterile dressing was applied. Access site closure technique: Tissue adhesive Catheter securement technique: Non-absorbable suture Radi ation Dose Fluoroscopy time (minutes): 0.2 Reference air kerma (mGy): 2.1 Additional Details Additional description of procedure: None Equipment details: None Specimens removed: None Estimated blood loss (mL): Less than 10 Standardized report: SIR_TunneledCatheter_v3 Attestation Signer name : Isael Gonzalez MD I attest that I was present for the entire procedure. I revie wed the stored images and agree with the report as written. Signed by: Isael Gonzalez MD on 12/01/2019 4:26 PM Dictated By: ISAEL GONZALEZ MD Elect ronically Signed By: ISAEL GONZALEZ MD on 12/01/19 1626 Transcribed By: JENNIFER on 12/01/19 1626 COPY TO: BREANNA KIRBY MD CHEST SINGLE (PORTABLE) 2019-12-01 12:19:00 [place] [address] Patient Name: SIOBHAN BARBOSA MR #: [id number] : 1965 Age/Sex: 54/F Req #: [id number] Adm Physician: SHIRIN KNOTT MD Ordered by: JF BANKS Report #: [id number] Location: MED/SURG2 Room/Bed: [facility] Procedure: [id number] DX/CHEST SINGLE (PORTABLE) Exam Date: 12/01/19 Exam Time: 15 REPORT STATUS: Signed EXAMINA TION: CHEST SINGLE (PORTABLE) INDICATION: Altered mental status, aspir ation COMPARISON: Chest radiograph of 11/28/2019 FINDINGS: Th e patient is left rotated. LINES/TUBES:EKG leads overlie the chest. CECILIA NGS:The lungs are moderately inflated. Increasing bilateral hazy airspace opac ities. PLEURA:No pleural effusion or pneumothorax. MEDIASTINUM:Cardiom ediastinal silhouette is stably enlarged. BONES/SOFT TISSUES:No acute osseo us injury. ABDOMEN:No free air under the diaphragm. IMPRESSION: Cardiomegaly and increasing bilateral interstitial and airspace opacities, more likely representing edema than aspiration or pneumonia. Signed by: Kat Gonzalez MD on 12/01/2019 12:22 PM Dictated By: ISAEL GONZALEZ MD 1222 Transcribed By: JENNIFER on 12/01/19 1222 COPY TO: JF BANKS Blood [id number] 11:45:00* Test Item Value Reference Range Interpretation Comments Blood Culture (test code = 01180455) NO GROWTH AFTER 5 DAYS, FINAL REPORT [facility] Aev-vFwv1890-05-15 10:20:00* Test Item Value Reference Range Interpretation Comments B-Type Natriuretic Peptide (test code = 99077-3) 907.8 0-100 [facility] urine csuvmkh5363-37-35 18:42:00* Test Item Value Reference Range Interpretation Comments Urine Culture (test code = 630-4) PASCUAL ALBICANS [facility]2019-11-30 17:14:00 [place] [address] Patient Name: SIOBHAN BARBOSA MR #: [id number] : 1965 Age/Sex: 54/F Req #: [id number] Adm Physician: SHIRIN KNOTT MD Ordered by: KATJA MAGANA MD Report #: [id number] Location: [facility] Room/Bed: [facility] Procedure: [id number] DX/CHEST SI NGLE (PORTABLE) Exam Date: 11/30/19 Exam Time: 1638 REPORT STATUS: Signed EXAMINATIO N: CHEST SINGLE (PORTABLE) INDICATION: pulm edema 20191130 COMPARISON: 11/27/2019 FINDINGS: AP view TUBES and LINES: None. LUNGS: Very limited study due to rotation. Pulmonary ga stric congestion. Haziness of the most of the right lung. PLEURA: No vis ible pneumothorax. Small right pleural effusion. HEART AND MEDIASTINUM: Th e cardiomediastinal silhouette is enlarged. BONES AND SOFT TISSUES: No acute osseous lesion. Soft tissues are unremarkable. UPPER ABDOMEN: No free air under the diaphragm. IMPRESSION: Very Limited study. Pulm onary vascular congestion. Right lung haziness, representing edema and/or pne umonia. Small right pleural effusion. Signed by: Dr. Holly Quintero MD on 11/30/2019 5:16 PM Dictated By: HOLLY QUINTERO MD Electronically Obi d By: HOLLY QUINTERO MD on 11/30/19 1716 Transcribed By: JENNIFER on 11/30/19 171 6 COPY TO: KATJA MAGANA MD Blood platelets count by estimate (number/volume)2019-11-30 05:00:00* Test Item Value Reference Range Interpretation Comments Platelet Estimate (test code = 08608-2) ADEQUATE [facility] xybcfprfcx5050-08-85 05:00:00* Test Item Value Reference Range Interpretation Comments Platelet Morphology Comment (test code = 99663-6) FEW LARGE [facility] hypochromia detection by light spnjnpictz4838-41-21 05:00:00* Test Item Value Reference Range Interpretation Comments Hypochromasia (test code = 728-6) SLIGHT [facility] anisocytosis detection by light pxoqfmneoo6762-16-65 05:00:00* Test Item Value Reference Range Interpretation Comments Anisocytosis (test code = 702-1) SLIGHT [facility]RB glstgsmpck6576-83-49 05:00:00* Test Item Value Reference Range Interpretation Comments Red Cell Morphology Comment (test code = 6742-1) NORMAL [facility])2019-11-28 09:22:00 [facility] [address] [place] [address] Patient Name: SIOBHAN BARBOSA MR #: [id number] : 1965 Age/Sex: 54/F Req #: [id number] Adm Physician: SHIRIN KNOTT MD Ordered by: KATJA MAGANA MD Report #: [id number] Location: MED/SURG2 Room/Bed: [facility] Procedure: [id number] DX/CHEST SI NGLE (PORTABLE) Exam Date: 11/28/19 Exam Time: 05 REPORT STATUS: Signed EXAM: BETTY ST SINGLE (PORTABLE) DATE: 11/28/2019 5:40 AM INDICATION: Pulmonary e meghana COMPARISON: 11/27/2019 FINDINGS: The patient is slightly rotat ed limiting evaluation. Again noted are increased interstitial markings bilate rally suggestive of edema. There is no evidence for new large focal consolidat ion or pneumothorax. There is blunting of the costophrenic angles and trace ef fusions are suspected. The cardiomediastinal silhouette is stable in appear ance. No acute osseous abnormality is identified. IMPRESSION: No significant interval change from 11/27/2019. Stable findings suggestive of i nterstitial edema. Signed by: Dr. Tello Gross MD on 11/28/2019 9:24 AM Dictated By: TELLO GROSS MD 3 COPY TO: Cathy MAGANA MD Phosphorus vksadsdoslm3223-07-79 13:50:00* Test Item Value Reference Range Interpretation Comments Phosphorus Level (test code = OHI2566) 3.1 2.3-4.7 [facility]Ammonia Dqn-yOoj3460-65-11 13:50:00* Test Item Value Reference Range Interpretation Comments Ammonia (test code = 59081-5) 54 31-123 [facility] color bewrsqajlxhjp1524-42-72 13:30:00* Test Item Value Reference Range Interpretation Comments Urine Color (test code = 5778-6) YELLOW YELLOW [facility] rphtbas8263-89-20 13:30:00* Test Item Value Reference Range Interpretation Comments Urine Clarity (test code = 52838-9) CLEAR CLEAR [facility] gravity of Urine by Test strip 2019-11-27 13:30:00* Test Item Value Reference Range Interpretation Comments Urine Specific [place] (test code = 5811-5) 1.015 1.010-1.02 5 [facility] pH measurement by automated test stktp4129-17-36 13:30:00* Test Item Value Reference Range Interpretation Comments Urine pH (test code = 16317-8) 5 5-7 [facility] leukocyte esterase detection by nycahdji5583-32-65 13:30:00* Test Item Value Reference Range Interpretation Comments Urine Leukocyte Esterase (test code = 5799-2) MODERATE NEGATIVE [facility] nitrite lowdjxdwk1642-82-71 13:30:00* Test Item Value Reference Range Interpretation Comments Urine Nitrite (test code = 05447-6) NEGATIVE NEGATIVE [facility] protein measurement by test strip (mass/volume)2019-11-27 13:30:00* Test Item Value Reference Range Interpretation Comments Urine Protein (test code = 5804-0) NEGATIVE NEGATIVE [facility] glucose mxbxqwtyg9038-35-16 13:30:00* Test Item Value Reference Range Interpretation Comments Urine Glucose (UA) (test code = 2349-9) NEGATIVE NEGATIVE [facility] ketones detection by automated test mjhli0934-46-57 13:30:00* Test Item Value Reference Range Interpretation Comments Urine Ketones (test code = 24045-2) NEGATIVE NEGATIVE [facility] urobilinogen measurement by test strip (mass/volume)2019-11-27 13:30:00* Test Item Value Reference Range Interpretation Comments Urine Urobilinogen (test code = 04535-7) 0.2 0.2-1 [facility] total bilirubin measurement (mass/volume)2019-11-27 13:30:00* Test Item Value Reference Range Interpretation Comments Urine Bilirubin (test code = 1978-6) NEGATIVE NEGATIVE [facility] erythrocytes brrprzorq6840-70-26 13:30:00* Test Item Value Reference Range Interpretation Comments Urine Blood (test code = 99635-9) MODERATE NEGATIVE [facility] urine sediment leukocyte count by microscopy (number/high power field)2019-11-27 13:30:00* Test Item Value Reference Range Interpretation Comments Urine WBC (test code = 5821-4) -20 0-5 [facility] HospitalErythrocytes detection in urine sediment by light wregxsttme9723-44-35 13:30:00* Test Item Value Reference Range Interpretation Comments Urine RBC (test code = 15878-0) 50 0-5 [facility]Bacteria detection in urine sediment by light sqswrgyfyz5049-23-12 13:30:00* Test Item Value Reference Range Interpretation Comments Urine Bacteria (test code = 35207-4) RARE NONE [facility] HospitalEpithelial cells detection in urine sediment by light woqfbvhsxx9108-00-34 13:30:00* Test Item Value Reference Range Interpretation Comments Urine Epithelial Cells (test code = 61965-0) FEW NONE [facility]2019-11-27 09:27:00 [facility] [address] [place] [address] Patient Name: SIOBHAN BARBOSA MR #: [id number] : 1965 Age/Sex: 54/F Req #: [id number] Adm Physician: SHIRIN KNOTT MD Ordered by: SANG ESPARZA MD Report #: [id number] Location: MED/SURG2 Room/Bed: [facility] Procedure: DX/CHEST SIN GLE (PORTABLE) Exam Date: 11/27/19 Exam Time: 609 REPORT STATUS: Signed EXAM: ABDOUL Rivas SINGLE (PORTABLE) DATE: 11/27/2019 6:10 AM INDICATION: CHF, altered mental status COMPARISON: 11/26/2019 FINDINGS: Again identified ar e increased interstitial markings present bilaterally which is nonspecific but can be seen in setting of edema. There is blunting of the costophrenic angles and small effusions are suspected. There is no evidence for new large focal c onsolidation or pneumothorax. The cardiac silhouette remains enlarged. No a cute osseous abnormality is identified. IMPRESSION: Stable appear ing increased interstitial markings which are nonspecific but can be seen in t he setting of edema. Stable cardiomegaly. Signed by: Dr. Tello Gross MD on 11/27/2019 9:28 AM Dictated By: TELLO GROSS MD Electronically Sig rosi By: TELLO GROSS MD on 11/27/19927 Transcribed By: JENNIFER on 11/27/1904 15 COPY TO: SANG ESPARZA MD CHEST SINGLE (PORTABLE)2019-11-26 08:29:00 [place] [address] Patient Name: SIOBHAN BARBOSA MR #: [id number] : 1965 Age/Sex: 54/F Req #: [id number] Adm Physician: SHIRIN KNOTT MD Ordered by: SANG ESPARZA MD Report #: [id number] Location: MED/SURG2 Room/Bed: [facility] Procedure: DX/CHEST SIN GLE (PORTABLE) Exam Date: 11/26/19 Exam Time: 0645 REPORT STATUS: Signed Examination : Single AP view of the chest. COMPARISON: October 30, 2019 INDICATION: Altered mental status DISCUSSION: Lines/tubes: None. Lungs: Pulmonary venous congestion and interstitial edema. Pleura: Probable sma ll effusions. Heart and mediastinum: Heart enlarged. Bones and soft t issues: No acute bony abnormalities. IMPRESSION: 1. Cardiomeg kenn with interstitial edema Signed by: Dr. Zee Millan M.D. on 0 8:30 AM Dictated By: ZEE MILLAN MD 9 Transcribed By: JENNIFER on 11/26/19829 COPY TO: SANG ESPARZA MD Prothrombin time (PT) in platelet poor plasma by coagulation kxbkg8352-11-53 15:50:00* Test Item Value Reference Range Interpretation Comments Prothrombin Time (test code = 5902-2) 15.8 11.9-14.5 [facility] in Platelet poor plasma by Coagulation osnug4279-10-96 15:50:00* Test Item Value Reference Range Interpretation Comments Prothromb Time International Ratio (test code = 6301-6) 1.18 Oral Anticoagulant Therapy INR Values:1. Low Intensity Therapy 1.5 - 2.02 . Moderate Intensity Therapy 2.0 - 3.03. High Intensity Therapy(1) 2.5 - 3. 54. High Intensity Therapy(2) 3.0 - 4.05. Panic Value INR > 5.0 [facility]ated reticulocyte count as percentage of total ojhccrtdoljv4910-94-51 05:30:00* Test Item Value Reference Range Interpretation Comments Percent Reticulocyte Count (test code = 14750-2) 1.4 0.8-2 .2 [facility] Temple[facility] or plasma iron measurement (mass/volume)2019-11-19 05:30:00* Test Item Value Reference Range Interpretation Comments Iron Level (test code = 2498-4) 19 50-170 [facility] Templeerum or plasma iron binding capacity measurement (mass/volume)2019-11-19 05:30:00* Test Item Value Reference Range Interpretation Comments Total Iron Binding Capacity (test code = 2500-7) 216 261-4 78 [facility] or plasma iron saturation measurement (mass fraction)2019-11-19 05:30:00* Test Item Value Reference Range Interpretation Comments Percent Iron Saturation (test code = 2502-3) 9 15-50 [facility] or plasma transferrin measurement (mass/volume)2019-11-19 05:30:00* Test Item Value Reference Range Interpretation Comments Transferrin (test code = 3034-6) 154 180-382 [facility] or plasma ferritin measurement (mass/volume)2019-11-19 05:30:00* Test Item Value Reference Range Interpretation Comments Ferritin (test code = 2276-4) 239.91 4.63-204.00 [facility] HospitalBlood cobalamin (vitamin B12) measurement (mass/volume)2019-11-19 05:30:00* Test Item Value Reference Range Interpretation Comments Vitamin B12 Level (test code = 77982-0) 1068 213-816 [facility] or plasma hepatitis A virus IgM antibody detection by aoryaetegbi0631-59-18 05:30:00* Test Item Value Reference Range Interpretation Comments Hepatitis A IgM Antibody (test code = 20385-2) Negative Negativ e [facility] or plasma hepatitis B virus surface antigen detection by iqmqzrzylua6236-01-27 05:30:00* Test Item Value Reference Range Interpretation Comments Hepatitis B Surface Antigen (test code = 5196-1) Negative Negat steve [facility] or plasma hepatitis B virus core IgM antibody detection by fefzmhqgtjz8149-92-62 05:30:00* Test Item Value Reference Range Interpretation Comments Hepatitis B Core IgM Antibody (test code = 71460-8) Negative Ne gative [facility] hepatitis C virus antibody erewjgbfy8918-52-46 05:30:00* Test Item Value Reference Range Interpretation Comments Hepatitis C Antibody (test code = 52044-0) 10.8 0.0-0.9 Negative: < 0.8 Indeterminate: 0.8 - 0.9 Positive: > 0.9 The CDC recommends that a positive HCV antibody result be followed up with a HCV Nucleic Acid Amplification test (385351).Performed at: [facility] [address] [place] [address] [id number] Director: Arturo Walker MD, Phone: [phone] Scott & [facility] Templeerum or plasma alkaline phosphatase measurement (enzymatic activity/volume)2019-11-19 05:30:00* Test Item Value Reference Range Interpretation Comments Alkaline Phosphatase (test code = 6768-6) 592 39-117 [facility] or plasma intestinal alkaline phosphatase/total alkaline phosphatase xpryi2505-52-61 05:30:00* Test Item Value Reference Range Interpretation Comments Alkaline Phosphatase Iso-Intestine (test code = 33820-2) 0 0-18 Performed at: [address] [id number] Director: Arturo Walker MD, Phone: [phone] at: [facility] [address] [place], [place] [id number] Director: Latoya Sidhu MD, Ph one: [phone] Scott & [facility] Templeerum or plasma bone alkaline phosphatase/alkaline phosphatase.ytebw2432-71-41 05:30:00* Test Item Value Reference Range Interpretation Comments Alkaline Phosphatase Iso-Bone (test code = 42836-0) 26 14 -68 [facility] or plasma liver alkaline phosphatase/total alkaline phosphatase citya4833-06-05 05:30:00* Test Item Value Reference Range Interpretation Comments Alkaline Phosphatase Iso-Liver (test code = 86800-6) 74 1 8-85 [facility] or plasma folate measurement (mass/volume)2019-11-19 05:30:00* Test Item Value Reference Range Interpretation Comments Folate (test code = 2284-8) 8.3 >3.0 A serum folate concentration of less than 3.1 ng/mL isconsidered to represent cl inical deficiency.Performed at: [address] [id number] Director: Arturo Walker MD, Phone: [phone] HospitalFluoroscopic procedure less than one hour duration 2019-11-18 02:35:00* Test Item Value Reference Range Interpretation Comments Coronavirus (PCR) (test code = Coronavirus (PCR)) NOT DETECTED NOTD ETECTED SARS-COV2/RT-PCRNegative results do not preclude SARS-CoV-2 infection and should not be used as the sole basis for patient management decisions. Negative result s must be combined with clinical observations, patient history, and epidemiologi terell information. A false negative result may occur if a specimen is improperly c ollected, transported or handled.The limit of detection for this assay is 250 co pies/mLThe SARS-CoV-2 test is a rapid, real-time RT-PCR test intended for the qu alitative detection of nucleic acid from SARS-CoV-2 in nasopharyngeal swab speci men collected from individuals suspected of COVID-19 by their healthcare provide r. This test has not been Food and Drug Administration (FDA) cleared or approved and has been authorized by FDA under an Emergency Use Authorization (EUA). This EUA will be effective until the declaration that circumstances exist justifying the authorization of the emergency use of in vitro diagnostic test for detectio n and or diagnosis of COVID-19 is terminated under section 564(b) of the Act, or the the EUA is revoked under 564(g) of the ACT.Testing performed by [address]-VIEW (KUB)2019-11-17 00:58:00 [place] [address] Patient Name: SIOBHAN BARBOSA MR #: [id number] : 1965 Age/Sex: 54/F Req #: [id number] Adm Physician: SHIRIN KNOTT MD Ordered by: MICHAEL FLOWERS MD Report #: [id number] Location: MED/SURG2 [facility]/Bed: 208-1 Procedure: [id number] DX/ABDOMEN -1VIEW (KUB) Exam Date: 11/17/19 Exam Time: 0000 REPORT STATUS: Signed EXAM: Abdomen Radiograph 1 View(s) INDICATION: Cirrhosis of the liver, FOBT+ 20 [id number] Y COMPARISON: None FINDINGS: Limited study due to patient body habitus and motion artifact. The bowel gas pattern is nonspeci fic. No abnormal soft tissue calcification. No gross acute osseous abn ormality. IMPRESSION: Limited study. The bowel gas pattern is nonspeci fic. Signed by: Abdelrahman Song MD on 11/17/2019 12:59 AM Dictated By: ABDELRAHMAN SONG MD Transcribed By: JENNIFER on 11/17/1958 COPY TO: MICHAEL FLOWERS MD Bacteria identification in wound by lyavzwz3115-08-03 18:30:00* Test Item Value Reference Range Interpretation Comments Wound Culture (test code = 6462-6) STAPHYLOCOCCUS AUREUS-MRSA [facility] gastrointestinal hemoglobin wloioobxq5330-18-41 14:28:00* Test Item Value Reference Range Interpretation Comments Stool Occult Blood (test code = 2335-8) POSITIVE NEGATIVE [facility] or plasma triglyceride measurement (mass/volume)2019-11-16 07:40:00* Test Item Value Reference Range Interpretation Comments Triglycerides Level (test code = 2571-8) 69 0-149 [facility] or plasma cholesterol measurement (mass/volume)2019-11-16 07:40:00* Test Item Value Reference Range Interpretation Comments Cholesterol Level (test code = 2093-3) 119 0-199 Less than 200 mg/dL Low Vflr231 - 239 mg/dL Borderline Gmjy130 m g/dl and greater High Risk [facility] or plasma cholesterol in LDL measurement (mass/volume) 2019-11-16 07:40:00* Test Item Value Reference Range Interpretation Comments LDL Cholesterol (test code = 2089-1) 81 60-130 [facility] or plasma cholesterol in HDL measurement (mass/volume)2019-11-16 07:40:00* Test Item Value Reference Range Interpretation Comments HDL Cholesterol (test code = 2085-9) 24 40-60 [facility] or plasma total cholesterol/cholesterol in HDL mass vkjpp2422-49-20 07:40:00* Test Item Value Reference Range Interpretation Comments Cholesterol/HDL Ratio (test code = 9830-1) 5.0 3.0-3.6 [facility] or plasma creatine kinase measurement (enzymatic activity/volume)2019-11-16 07:40:00* Test Item Value Reference Range Interpretation Comments Creatine Kinase (test code = 2157-6) 39 29-168 [facility] or plasma creatine kinase MB measurement (mass/volume)2019-11-16 07:40:00* Test Item Value Reference Range Interpretation Comments Creatine Kinase MB (test code = 98392-8) 11.10 0-5.0 [facility] HospitalTroponin I measurement by highly sensitive enzyme yhtntpukvud1823-39-79 07:40:00* Test Item Value Reference Range Interpretation Comments Troponin I (test code = 75651-4) < 0.001 0-0.300 [facility] HospitalCapillary blood glucose measurement by glucometer (mass/volume)2019-11-16 07:29:00* Test Item Value Reference Range Interpretation Comments Bedside Glucose (test code = 98817-7) 152 70-120 Meter ID: [id number] [facility] OB3210-46-69 11:35:00 [facility] [address] [place] [address] Patient Name: SIOBHAN BARBOSA MR #: [id number] : 1965 Age/Sex: 54/F Req #: [id number] Adm Physician: Ordered by: SAM GÓMEZ MD Report #: [id number] Location: ER Room/Bed: Procedure: [id number] CT/CT BRAIN WO Exam Date: 11/15/19 Exam Time: 1050 REPORT STATUS: Signed EXAMINATION: Head CT HISTORY: Alteration of consciousness COMPARISON: Head CT 05/25/2019 TECH NIQUE: Helical axial images of the head were obtained. Reformatted coronal an d sagittal images from the axial data. Dose modulation, iterative reconstruct ion, and/or weight based adjustment of the mA/kV was utilized to reduce the ra diation dose to as low as reasonably achievable. Image quality: Study performe d in lateral acute reduced due to patient's clinical condition and skin wounds . Motion/streaking artifact also limits the evaluation of the study. FIND INGS: Parenchyma: 1. No discrete areas of abnormal densities. 2. No mass or hemorrhage. No CT evidence of acute territorial vascular insult. Extra-axial spaces:No abnormal density. No extra-axial fluid radha ections Brain volume: Normal for age. Ventricles: No hydrocephal us or displacement. Arteries: No density suggestive of thrombus. Dural sinuses: No abnormal density. Foramen magnum: No mass, Chiari ma lformation, or basilar invagination. Sella: No obvious mass. Pa ranasal/mastoid sinuses: Imaged portions unremarkable. Skull/Scalp: No l ytic or blastic lesions. No fractures. IMPRESSION: Suboptimal study due to motion artifact, grossly no acute intracranial hemorrhage, mass, hydroc ephalus or midline shift. No significantly changed compared to head CT of 05/25 Signed by: Dr. Sushma Chatman M.D. on 11/15/2019 11:43 AM Dictate d By: SUSHMA CHATMAN MD 1143 Transcribed By: JENNIFER on 11/15/19 1143 COPY TO: SAM GÓMEZ MD CHEST SINGLE (PORTABLE)2019-11-15 10:56:00 [facility] [address] [place] [address] Patient Name: SIOBHAN BARBOSA MR #: [id number] : 1965 Age/Sex: 54/F Req #: [id number] Adm Physician: Ordered by: SAM GÓMEZ MD Report #: [id number] Location: ER Room/Bed: Procedure: [id number] DX/CHEST SI NGLE (PORTABLE) Exam Date: 11/15/19 Exam Time: 1010 REPORT STATUS: Signed Examinatio n: Single AP view of the chest. COMPARISON: 10/30/2019 INDICATION: Alte red mental status DISCUSSION: Examination is limited by patient p ositioning. As before, the lungs appear hyperinflated. Stable enlargement o f the cardiac silhouette with prominence of the central pulmonary vasculature. No acute osseous abnormality. IMPRESSION: Unchanged cardiomegal y and pulmonary venous congestion. Trace bilateral pleural effusions are suspe cted. Signed by: Dr. Tomy Briceno M.D. on 11/15/2019 10:58 AM Dicta mita By: TOMY BRICENO MD 1058 Transcribed By: JENNIFER on 11/15/19 1058 COPY TO: SAM GÓMEZ Activated partial thromboplastin time (aPTT) in platelet poor plasma by coagulation oilkm6718-02-95 09:14:00* Test Item Value Reference Range Interpretation Comments Activated Partial Thromboplast Time (test code = 67134-0) 26.9 23.8-35.5 [facility] HospitalFluoroscopic procedure less than one hour mrhngkcc5514-00-28 09:14:00* Test Item Value Reference Range Interpretation Comments Lactic Acid Level (test code = Lactic Acid Level) 0.7 0.5- 2.0 [facility] Temple[facility] Hkbvp5622-64-94 09:42:00* Test Item Value Reference Range Interpretation Comments Sodium Level (test code = 2951-2) 145 136-145 [facility] HospitalPotassium Bzbph5042-65-53 09:42:00* Test Item Value Reference Range Interpretation Comments Potassium Level (test code = 2823-3) 3.7 3.5-5.1 [facility] HospitalChloride Yzqzs7696-68-41 09:42:00* Test Item Value Reference Range Interpretation Comments Chloride Level (test code = 2075-0) 111 98-107 H [facility] HospitalCarbon Dioxide Adfdk6917-65-63 09:42:00* Test Item Value Reference Range Interpretation Comments Carbon Dioxide Level (test code = 2028-9) 23 22-29 [facility] HospitalAnion Tgo1394-09-93 09:42:00* Test Item Value Reference Range Interpretation Comments Anion Gap (test code = 22571-6) 14.7 8-16 [facility] HospitalBlood Urea Lodwykhv2049-91-40 09:42:00* Test Item Value Reference Range Interpretation Comments Blood Urea Nitrogen (test code = 3094-0) 81 7-26 H [facility] HospitalCreatinine2020-04-17 09:42:00* Test Item Value Reference Range Interpretation Comments Creatinine (test code = 2160-0) 3.09 0.57-1.11 H [facility] HospitalBUN/Creatinine Oxpwv0103-72-69 09:42:00* Test Item Value Reference Range Interpretation Comments BUN/Creatinine Ratio (test code = 3097-3) 26 6-25 H [facility] HospitalEstimat Glomerular Filtration Rate 2019-11-03 09:42:00* Test Item Value Reference Range Interpretation Comments Estimat Glomerular Filtration Rate (test code = 991211648) 16 >60 L Ranges were taken from the National Kidney Disease Education Program and the [facility] literature.Reference ranges:60 or greater: Mxxcog12-40 ( for 3 consecutive months): Chronic kidney disease 15 or less: Kidney failureMayhill HospitalGlucose Pylgw9080-49-54 09:42:00* Test Item Value Reference Range Interpretation Comments Glucose Level (test code = PTE1473) 131 74-118 H [facility] HospitalCalcium Klgbh1983-14-26 09:42:00* Test Item Value Reference Range Interpretation Comments Calcium Level (test code = 56092-4) 8.4 8.4-10.2 [facility] HospitalTotal Boqhkised2173-30-99 09:42:00* Test Item Value Reference Range Interpretation Comments Total Bilirubin (test code = 1975-2) 1.3 0.2-1.2 H [facility] HospitalAspartate Amino Transf (AST/SGOT) 2019-11-03 09:42:00* Test Item Value Reference Range Interpretation Comments Aspartate Amino Transf (AST/SGOT) (test code = Aspartate Amino Transf (AST/SGOT)) 78 5-34 H [facility] HospitalAlanine Aminotransferase (ALT/SGPT) 2019-11-03 09:42:00* Test Item Value Reference Range Interpretation Comments Alanine Aminotransferase (ALT/SGPT) (test code = 1742-6) 34 0-55 [facility] HospitalTotal Ehaamfy3672-81-67 09:42:00* Test Item Value Reference Range Interpretation Comments Total Protein (test code = 2885-2) 6.5 6.5-8.1 [facility] HospitalAlbumin2020-04-17 09:42:00* Test Item Value Reference Range Interpretation Comments Albumin (test code = 1751-7) 2.0 3.5-5.0 L [facility] HospitalGlobulin2020-04-17 09:42:00* Test Item Value Reference Range Interpretation Comments Globulin (test code = 00527-0) 4.5 2.3-3.5 H [facility] HospitalAlbumin/Globulin Mywzq4603-74-95 09:42:00 * Test Item Value Reference Range Interpretation Comments Albumin/Globulin Ratio (test code = 1759-0) 0.4 0.8-2.0 L [facility] HospitalAlkaline Bizjdfxukcz4311-60-55 09:42:00* Test Item Value Reference Range Interpretation Comments Alkaline Phosphatase (test code = 6768-6) 641 40-150 H [facility] HospitalWhite Blood Bowrn1500-72-91 09:26:00* Test Item Value Reference Range Interpretation Comments White Blood Count (test code = 6690-2) 5.49 4.8-10.8 [facility] HospitalRed Blood Ndhbh9039-10-14 09:26:00* Test Item Value Reference Range Interpretation Comments Red Blood Count (test code = 789-8) 2.72 3.6-5.1 L [facility] HospitalHemoglobin2020-04-17 09:26:00* Test Item Value Reference Range Interpretation Comments Hemoglobin (test code = 39426-3) 8.0 12.0-16.0 L [facility] HospitalHematocrit2020-04-17 09:26:00* Test Item Value Reference Range Interpretation Comments Hematocrit (test code = 4544-3) 26.2 34.2-44.1 L [facility] HospitalMean Corpuscular Habcmz4613-50-90 09:26:00* Test Item Value Reference Range Interpretation Comments Mean Corpuscular Volume (test code = 787-2) 96.3 81-99 [facility] HospitalMean Corpuscular Lyazdseldh3972-14-93 09:26:00* Test Item Value Reference Range Interpretation Comments Mean Corpuscular Hemoglobin (test code = 785-6) 29.4 28-32 [facility] HospitalMean Corpuscular Hemoglobin Concent 2019-11-03 09:26:00* Test Item Value Reference Range Interpretation Comments Mean Corpuscular Hemoglobin Concent (test code = 786-4) 30.5 31-35 L [facility] HospitalRed Cell Distribution Vzgzz5699-17-14 09:26:00* Test Item Value Reference Range Interpretation Comments Red Cell Distribution Width (test code = 79103-4) 16.1 11.7 -14.4 H [facility] HospitalPlatelet Thtyu2645-60-84 09:26:00* Test Item Value Reference Range Interpretation Comments Platelet Count (test code = 777-3) 75 140-360 L [facility] HospitalNeutrophils (%) (Auto)2019-11-03 09:26:00 * Test Item Value Reference Range Interpretation Comments Neutrophils (%) (Auto) (test code = 12353-3) 70.8 38.7-80.0 [facility] HospitalLymphocytes (%) (Auto)2019-11-03 09:26:00 * Test Item Value Reference Range Interpretation Comments Lymphocytes (%) (Auto) (test code = 736-9) 17.7 18.0-39.1 L [facility] HospitalMonocytes (%) (Auto)2019-11-03 09:26:00* Test Item Value Reference Range Interpretation Comments Monocytes (%) (Auto) (test code = 5905-5) 9.1 4.4-11.3 [facility] HospitalEosinophils (%) (Auto)2019-11-03 09:26:00 * Test Item Value Reference Range Interpretation Comments Eosinophils (%) (Auto) (test code = 713-8) 1.5 0.0-6.0 [facility] HospitalBasophils (%) (Auto)2019-11-03 09:26:00* Test Item Value Reference Range Interpretation Comments Basophils (%) (Auto) (test code = 706-2) 0.5 0.0-1.0 [facility] HospitalIM GRANULOCYTES %2019-11-03 09:26:00* Test Item Value Reference Range Interpretation Comments IM GRANULOCYTES % (test code = IM GRANULOCYTES %) 0.4 0.0- 1.0 [facility] HospitalNeutrophils # (Auto)2019-11-03 09:26:00* Test Item Value Reference Range Interpretation Comments Neutrophils # (Auto) (test code = 751-8) 3.9 2.1-6.9 [facility] HospitalLymphocytes # (Auto)2019-11-03 09:26:00* Test Item Value Reference Range Interpretation Comments Lymphocytes # (Auto) (test code = 72736-6) 1.0 1.0-3.2 [facility] HospitalMonocytes # (Auto)2019-11-03 09:26:00* Test Item Value Reference Range Interpretation Comments Monocytes # (Auto) (test code = 742-7) 0.5 0.2-0.8 [facility] HospitalEosinophils # (Auto)2019-11-03 09:26:00* Test Item Value Reference Range Interpretation Comments Eosinophils # (Auto) (test code = 711-2) 0.1 0.0-0.4 [facility] HospitalBasophils # (Auto)2019-11-03 09:26:00* Test Item Value Reference Range Interpretation Comments Basophils # (Auto) (test code = 704-7) 0.0 0.0-0.1 [facility] HospitalAbsolute Immature Granulocyte (auto 2019-11-03 09:26:00* Test Item Value Reference Range Interpretation Comments Absolute Immature Granulocyte (auto (patel t code = Absolute Immature Granulocyte (auto) 0.02 0-0.1 [facility] HospitalBlood Moxpjhk5499-41-84 20:41:00* Test Item Value Reference Range Interpretation Comments Blood Culture (test code = 01741490) NO GROWTH AFTER 72 HOURS [facility] HospitalUrine Iqmduja1921-97-90 09:49:00* Test Item Value Reference Range Interpretation Comments Urine Culture (test code = 630-4) No Result Data Provided [facility] HospitalIron Nfift9343-69-48 07:18:00* Test Item Value Reference Range Interpretation Comments Iron Level (test code = 2498-4) 28 50-170 L [facility] HospitalTotal Iron Binding Wwlcgjyt8477-57-04 07:18:00* Test Item Value Reference Range Interpretation Comments Total Iron Binding Capacity (test code = 2500-7) 195 261-4 78 L [facility] HospitalPercent Iron Ltyyntcqls8949-37-13 07:18:00* Test Item Value Reference Range Interpretation Comments Percent Iron Saturation (test code = 2502-3) 14 15-50 L [facility] HospitalTransferrin2020-04-16 07:18:00* Test Item Value Reference Range Interpretation Comments Transferrin (test code = 3034-6) 139 180-382 L [facility] HospitalThyroid Stimulating Hormone (TSH) 2019-11-02 06:58:00* Test Item Value Reference Range Interpretation Comments Thyroid Stimulating Hormone (TSH) (test code = 04757-1) 12.525 0.350-4.940 H [facility] or plasma thyrotropin measurement by detection limit <= 0.005 miu/l (units/volume)2019-11-02 06:00:00* Test Item Value Reference Range Interpretation Comments Thyroid Stimulating Hormone (TSH) (test code = 61324-2) 12.525 0.350-4.940 [facility] HospitalCoronavirus (PCR)2019-11-02 05:22:00* Test Item Value Reference Range Interpretation Comments Coronavirus (PCR) (test code = Coronavirus (PCR)) NOT DETECTED NOTD ETECTED SARS-COV-2 (COVID19), HIGHRISK, RT-PCRNegative results do not preclude SARS-CoV- 2 infection and should not be used as the sole basis for patient management deci sions. Negative results must be combined with clinical observations, patient his tory, and epidemiological information. Optimum specimen types and timing for pea k viral levels during infections caused by SARS-CoV-2 have not been determined. Collection of multiple specimens ot types of specimens may be necessary to detec t virus. Improper specimen collection and handling, sequence variability under p rimers/probes, or organism present below the limit of detection may lead to fals e negative results. Positive and negative predictive values of testing are highl y dependent on prevalance. False negative test results are more likely when prev alence is high.The expected result is negative (not detected).The SARS-CoV-2 patel t is intended for the qualitative detection of nucleic acid from SARS-CoV-2 in n asopharyngeal and oropharyngeal swab samples from patients who meet COVID-19 cli nical and or epidemiological criteria. For lower respiratory tract specimens, th e assay is submitted for authoriztion by FDA under an Emergency Use Authorizatio n (EUA). Testing methodology is real time RT-PCR. If received as separate collec tion devices, nasopharygeal and oropharyngeal specimens are combined for analysi s. Additional specimens may be split to a separate accession for analysi and rep orting as this test includes a single unit of service.Test results must be corre lated with clinical presentation and evaluated in the context of other laborator y and epidemiologic data. Test performance can be affected because the epidemiol ogy and clinical spectrum of infection caused by SARS-CoV-2 is not fully known. For example, the optimum types of specimens to collect and when during the cours e of infection these specimens are most likely to contain detectable viral RNA m ay not be known.This test has not been Food and Drug Administration (FDA) cleare d or approved and has been authorized by FDA under an Emergency Use Authorizatio n (EUA). The test is only authorized for the duration of the declaration that ci rcumstances exist justifying the authorization of emergency use of in vitro diag nostic tests for detection and/or diagnosis of SARS-CoV-2 under section 564(b) o f the Act, 21 U.S.C. section 360bbb-3(b)(1), unless the authorization is termina mita or revoked sooner. [facility] are certified under the C linical Laboratory Improvement Amendments of 1988 (CLIA), 42 U.S.C. section 263a , to perform high complexity tests.Specimen sent to [facility] and testing performed by [facility] [address] [place] [address] [phone] Director: Serafin Llamas M.D.CLIA # 4 [id number] HospitalParathyroid Vsgsjmp4726-89-23 07:28:00* Test Item Value Reference Range Interpretation Comments Parathyroid Hormone (test code = 2731-8) 56 15-65 [facility] HospitalCalcium (Send out)2019-11-01 07:28:00* Test Item Value Reference Range Interpretation Comments Calcium (Send out) (test code = 05723-4) 8.5 8.7-10.2 L [facility] HospitalParathyroid Hormone Interpretation 2019-11-01 07:28:00* Test Item Value Reference Range Interpretation Comments Parathyroid Hormone Interpretation (test code = Parathyroid Hormone Interpretation) Comment . Interpretation Intact PTH Calcium (pg/mL) (mg/dL)Normal 15 - 65 8.6 - 10.2Pr imary Hyperparathyroidism >65 >10.2Secondary Hyperparathyroidism >65 <10.2Non-Parathyroid Hypercalcemia <65 >10.2Hypoparathyroidism <15 < 8.6Non- Parathyroid Hypocalcemia 15 - 65 < 8.6Performed at: HD - [facility] [address] [id number] Director: Arturo Walker MD, Phone: [phone] at: - [facility] [address] [id number] Director: Latoya Sidhu MD, Phone: [phone] HospitalPhosphorus Yhycm4338-66-92 18:46:00* Test Item Value Reference Range Interpretation Comments Phosphorus Level (test code = LSA1603) 5.5 2.3-4.7 H [facility] or plasma 25-hydroxyvitamin D measurement (mass/volume)2019-10-31 18:00:00* Test Item Value Reference Range Interpretation Comments 25-Hydroxy Vitamin D Total (test code = 91881-8) 14 . Reference Range:All Ages: Target levels 30 - 100[facility] or plasma 25-hydroxycalciferol measurement (mass/volume)2019-10-31 18:00:00* Test Item Value Reference Range Interpretation Comments 25-Hydroxy Vitamin D3 (test code = 29510-7) 14 . Performed at: [employer] [address] [place] [id number] Director: Nagi Sanchez MD, Phone: [phone] Scott & [facility] Templeerum or plasma calcidiol measurement (mass/volume) 2019-10-31 18:00:00* Test Item Value Reference Range Interpretation Comments 25-Hydroxy Vitamin D2 (test code = 1989-3) <1.0 . [facility] or plasma intact pararthyroid hormone measurement (mass/volume)2019-10-31 18:00:00* Test Item Value Reference Range Interpretation Comments Parathyroid Hormone (test code = 2731-8) 56 15-65 [facility] or plasma calcium measurement (mass/volume)2019-10-31 18:00:00* Test Item Value Reference Range Interpretation Comments Calcium (Send out) (test code = 66567-4) 8.5 8.7-10.2 [facility]Fluor[facility] procedure less than one hour lxtoeume2535-10-77 18:00:00* Test Item Value Reference Range Interpretation Comments Parathyroid Hormone Interpretation (test code = Parathyroid Hormone Interpretation) Comment . Interpretation Intact PTH Calcium (pg/mL) (mg/dL)Normal 15 - 65 8.6 - 10.2Pr imary Hyperparathyroidism >65 >10.2Secondary Hyperparathyroidism >65 <10.2Non-Parathyroid Hypercalcemia <65 >10.2Hypoparathyroidism <15 < 8.6Non- Parathyroid Hypocalcemia 15 - 65 < 8.6Performed at: - [facility] [id number] Director: Arturo Walker MD, Phone: [phone] at: - [facility] [id number] Director: Latoya Sidhu MD, Phone: [phone] HospitalUS RENAL RETROPERITONEAL NOLA4180-51-09 16:15:00 [place] [address] Patient Name: SIOBHAN BARBOSA MR #: [id number] : 1965 Age/Sex: 54/F Req #: [id number] Adm Physician: SHIRIN KNOTT MD Ordered by: KATJA MAGANA MD Report #: [id number] Location: [facility] Room/Bed: [place] [address] Procedure: [id number] US/US RENAL RETROPERITONEAL COMP Exam Date: 10/31/19 Exam Time: 1509 REPORT STATUS: Si gned HISTORY: ckd COMPARISON: None. TECHNIQUE: Grayscale and c olor spectral Doppler ultrasound of the kidneys and bladder. FINDINGS: Extremely limited exam due to habitus/technique. The right kidney measures 9 x 4.3 x 3.8 cm. Cortical thickness measures 1.4 cm. No sonographically evid ent mass. Mild hydronephrosis. Renal artery and vein are patent. The left kidney measures 10.1 x 5.6 x 5.2 cm. Cortical thickness measures 1.4 cm. No s onographically evident mass or hydronephrosis. Multiple echogenic shadowing st ones, with the largest measuring 1.7 cm in the midpole. Renal artery and vein are patent. Bladder: Contains a Gibson catheter; otherwise, unremarkable. Additional findings: Echogenic stones within the gallbladder. Spleen maribel ures approximately 16 cm. IMPRESSION : 1. Mild right hydronephrosis. 2. Left nephrolithiasis, without hydronephrosis 3. Additional findings as abo ve. Signed by: Fermín Bashir MD on 10/31/2019 4:19 PM Dictated By: JAYLON BASHIR DO 161 T ranscribed By: JENNIFER on 10/31/199 COPY TO: KATJA MAGANA MD Epvhmmz9413-84-21 10:52:00* Test Item Value Reference Range Interpretation Comments Ammonia (test code = 19408-3) 84 31-123 [facility] HospitalUrine YOE8630-56-16 23:08:00* Test Item Value Reference Range Interpretation Comments Urine WBC (test code = 5821-4) >50 0-5 H [facility] HospitalUrine YCO0058-71-04 23:08:00* Test Item Value Reference Range Interpretation Comments Urine RBC (test code = 08787-1) >50 0-5 H [facility] HospitalUrine Faowbtqj0374-83-60 23:08:00* Test Item Value Reference Range Interpretation Comments Urine Bacteria (test code = 06945-0) MANY NONE H [facility] HospitalUrine Epithelial Nbrmo8246-11-30 23:08:00 * Test Item Value Reference Range Interpretation Comments Urine Epithelial Cells (test code = 39889-6) FEW NONE [facility] HospitalUrine Zicbq5748-07-21 22:40:00* Test Item Value Reference Range Interpretation Comments Urine Color (test code = 5778-6) YELLOW YELLOW [facility] HospitalUrine Pwbmmtg8070-11-82 22:40:00* Test Item Value Reference Range Interpretation Comments Urine Clarity (test code = 22909-2) CLOUDY CLEAR H [facility] HospitalUrine Specific Nclhpba5911-63-99 22:40:00 * Test Item Value Reference Range Interpretation Comments Urine Specific [place] (test code = 5811-5) 1.010 1.010-1.02 5 [facility] HospitalUrine oR9629-99-55 22:40:00* Test Item Value Reference Range Interpretation Comments Urine pH (test code = 38869-5) 5 5-7 [facility] HospitalUrine Leukocyte Spoctxba9978-88-61 22:40:00* Test Item Value Reference Range Interpretation Comments Urine Leukocyte Esterase (test code = 5799-2) 1+ NEGATIVE H [facility] HospitalUrine Gadiuks9793-20-50 22:40:00* Test Item Value Reference Range Interpretation Comments Urine Nitrite (test code = 32337-9) POSITIVE NEGATIVE [facility] HospitalUrine Seqhafg0692-06-75 22:40:00* Test Item Value Reference Range Interpretation Comments Urine Protein (test code = 5804-0) 1+ NEGATIVE H [facility] HospitalUrine Glucose (UA)2019-10-30 22:40:00* Test Item Value Reference Range Interpretation Comments Urine Glucose (UA) (test code = 2349-9) NEGATIVE NEGATIVE [facility] HospitalUrine Xlihdjt9144-00-51 22:40:00* Test Item Value Reference Range Interpretation Comments Urine Ketones (test code = 06200-5) NEGATIVE NEGATIVE [facility] HospitalUrine Pdlwikbddejq8388-92-74 22:40:00* Test Item Value Reference Range Interpretation Comments Urine Urobilinogen (test code = 53842-6) 0.2 0.2-1 [facility] HospitalUrine Hvddwdsav0274-41-94 22:40:00* Test Item Value Reference Range Interpretation Comments Urine Bilirubin (test code = 1978-6) NEGATIVE NEGATIVE [facility] HospitalUrine Afjsx8392-32-02 22:40:00* Test Item Value Reference Range Interpretation Comments Urine Blood (test code = 30990-9) 4+ NEGATIVE H [facility] HospitalBacterial urine qclazqz6276-40-98 22:30:00* Test Item Value Reference Range Interpretation Comments Urine Culture (test code = 630-4) KLEBSIELLA PNEUMONIAE-ESBL [facility] HospitalLactic Acid Lkltl5057-45-26 22:26:00* Test Item Value Reference Range Interpretation Comments Lactic Acid Level (test code = Lactic Acid Level) 0.5 0.5- 2.0 [facility] HospitalCHEST SINGLE (PORTABLE)2019-10-30 22:00:00 [facility] [address] [place] [address] Patient Name: SIOBHAN BARBOSA MR #: [id number] : 1965 Age/Sex: 54/F Req #: [id number] Adm Physician: Ordered by: BERENICE HEARN MD Report #: [id number] Location: ER Room/Bed: Procedure: 041 3-0055 DX/CHEST SINGLE (PORTABLE) Exam Date: 10/30/19 Exam Time: 2100 REPORT STATUS: Si gned EXAMINATION: CHEST SINGLE (PORTABLE) INDICATION: Cardiac arrest COMPARISON: Chest x-ray 03/18/2019 None FINDINGS: TUBES and LINES: None. LUNGS: Hyperinflated lungs. Left mid/lower lung h aziness. Prominent central pulmonary vasculature. PLEURA: Suspect small left and trace right pleural effusions. No pneumothorax. HEART AND MEDIAST INUM: Cardiac size is mildly enlarged. BONES AND SOFT TISSUES: No acu te osseous lesion. Soft tissues are unremarkable. UPPER ABDOMEN: No free air under the diaphragm. IMPRESSION: Mild cardiomegaly and pulmo nary vascular congestion. Suspect small left and trace right pleural effusions Hyperinflated lungs as seen with pulmonary emphysema. Signed by: Corey Ellison DO on 10/30/2019 10:03 PM Dictated By: PRAKASH ELLISON DO El ectronically Signed By: PRAKASH ELLISON DO on 10/30/192202 Transcribed By: KARI PAREDES on 10/30/192202 COPY TO: BERENICE HEARN MD B-Type Natriuretic Zhlheoj4224-97-15 21:09:00* Test Item Value Reference Range Interpretation Comments B-Type Natriuretic Peptide (test code = 89264-7) 2419.1 0-100 H [facility] HospitalCreatine Kinase FO4794-34-85 21:08:00* Test Item Value Reference Range Interpretation Comments Creatine Kinase MB (test code = 02630-1) 6.50 0-5.0 H [facility] HospitalTroponin [id number] 21:08:00* Test Item Value Reference Range Interpretation Comments Troponin I (test code = 85942-6) < 0.001 0-0.300 [facility] HospitalInfluenza Virus Types A,B Antigen 2019-10-30 21:06:00* Test Item Value Reference Range Interpretation Comments Influenza Virus Types A,B Antigen (test code = 99596-0) NEGATIVE NEGATIVE [facility] HospitalCreatine Iazmfa7647-37-50 21:05:00* Test Item Value Reference Range Interpretation Comments Creatine Kinase (test code = 2157-6) 51 29-168 [facility] HospitalProthrombin Yldf6316-73-36 20:52:00* Test Item Value Reference Range Interpretation Comments Prothrombin Time (test code = 5902-2) 15.0 11.9-14.5 H [facility] HospitalProthromb Time International Ratio 2019-10-30 20:52:00* Test Item Value Reference Range Interpretation Comments Prothromb Time International Ratio (test code = 6301-6) 1.11 Oral Anticoagulant Therapy INR Values:1. Low Intensity Therapy 1.5 - 2.02 . Moderate Intensity Therapy 2.0 - 3.03. High Intensity Therapy(1) 2.5 - 3. 54. High Intensity Therapy(2) 3.0 - 4.05. Panic Value INR > 5.0 [facility] HospitalActivated Partial Thromboplast Time 2019-10-30 20:52:00* Test Item Value Reference Range Interpretation Comments Activated Partial Thromboplast Time (test code = 90720-8) 53.6 23.8-35.5 H [facility] HospitalInfluenza virus A and B antigen identification by eidyuaqurvhyhgdxcm4581-79-93 20:30:00* Test Item Value Reference Range Interpretation Comments Influenza Virus Types A,B Antigen (test code = 35971-3) NEGATIVE NEGATIVE [facility] HospitalPlatelet Acbrtsiy0922-77-85 06:26:00* Test Item Value Reference Range Interpretation Comments Platelet Estimate (test code = 30282-2) MARKEDLY DECREASED [facility] HospitalPlatelet Vzxnhsui5683-49-13 06:26:00* Test Item Value Reference Range Interpretation Comments Platelet Estimate (test code = 90730-1) MARKEDLY DECREASED [facility] Temple[facility] Qeuil2645-11-02 04:29:00* Test Item Value Reference Range Interpretation Comments Sodium Level (test code = 2951-2) 142 136-145 [facility] HospitalPotassium Hgjsu6319-15-06 04:29:00* Test Item Value Reference Range Interpretation Comments Potassium Level (test code = 2823-3) 5.1 3.5-5.1 [facility] HospitalChloride Qytma7318-01-71 04:29:00* Test Item Value Reference Range Interpretation Comments Chloride Level (test code = 2075-0) 108 98-107 H [facility] HospitalCarbon Dioxide Vauwv3083-04-78 04:29:00* Test Item Value Reference Range Interpretation Comments Carbon Dioxide Level (test code = 2028-9) 22 22-29 [facility] HospitalAnion Mtr7390-98-59 04:29:00* Test Item Value Reference Range Interpretation Comments Anion Gap (test code = 51341-8) 17.1 8-16 H [facility] HospitalBlood Urea Qomhomvb5086-25-23 04:29:00* Test Item Value Reference Range Interpretation Comments Blood Urea Nitrogen (test code = 3094-0) 82 7-26 H [facility] HospitalCreatinine2020-02-03 04:29:00* Test Item Value Reference Range Interpretation Comments Creatinine (test code = 2160-0) 2.44 0.57-1.11 H [facility] HospitalBUN/Creatinine Kfyyn0535-01-91 04:29:00* Test Item Value Reference Range Interpretation Comments BUN/Creatinine Ratio (test code = 3097-3) 34 6-25 H [facility] HospitalEstimat Glomerular Filtration Rate 2019-08-21 04:29:00* Test Item Value Reference Range Interpretation Comments Estimat Glomerular Filtration Rate (test code = 707125195) 21 >60 L Ranges were taken from the National Kidney Disease Education Program and the [facility] Foundation literature.Reference ranges:60 or greater: Sexpge59-63 ( for 3 consecutive months): Chronic kidney disease 15 or less: Kidney failureMayhill HospitalGlucose Oxibc1376-69-90 04:29:00* Test Item Value Reference Range Interpretation Comments Glucose Level (test code = QHL7570) 177 74-118 H [facility] HospitalCalcium Xhpgl6983-25-80 04:29:00* Test Item Value Reference Range Interpretation Comments Calcium Level (test code = 56893-9) 8.6 8.4-10.2 [facility] HospitalWhite Blood Anwdz6397-82-59 04:16:00* Test Item Value Reference Range Interpretation Comments White Blood Count (test code = 6690-2) 4.69 4.8-10.8 L [facility] HospitalRed Blood Qjsse1635-18-86 04:16:00* Test Item Value Reference Range Interpretation Comments Red Blood Count (test code = 789-8) 2.84 3.6-5.1 L [facility] HospitalHemoglobin2020-02-03 04:16:00* Test Item Value Reference Range Interpretation Comments Hemoglobin (test code = 63752-0) 8.0 12.0-16.0 L [facility] HospitalHematocrit2020-02-03 04:16:00* Test Item Value Reference Range Interpretation Comments Hematocrit (test code = 4544-3) 25.8 34.2-44.1 L [facility] HospitalMean Corpuscular Mbwgfh3686-85-34 04:16:00* Test Item Value Reference Range Interpretation Comments Mean Corpuscular Volume (test code = 787-2) 90.8 81-99 [facility] HospitalMean Corpuscular Risucqongi7225-08-84 04:16:00* Test Item Value Reference Range Interpretation Comments Mean Corpuscular Hemoglobin (test code = 785-6) 28.2 28-32 [facility] HospitalMean Corpuscular Hemoglobin Concent 2019-08-21 04:16:00* Test Item Value Reference Range Interpretation Comments Mean Corpuscular Hemoglobin Concent (test code = 786-4) 31.0 31-35 [facility] HospitalRed Cell Distribution Npfzu5372-62-12 04:16:00* Test Item Value Reference Range Interpretation Comments Red Cell Distribution Width (test code = 97756-5) 19.1 11.7 -14.4 H [facility] HospitalPlatelet Rgxmw5960-05-62 04:16:00* Test Item Value Reference Range Interpretation Comments Platelet Count (test code = 777-3) 41 140-360 LL Results repeated and called to BELINDA Morgan at 0414 on 08/21/19 by Venkatesh Funk. Amber barnard back and verified.[facility] HospitalNeutrophils (%) (Auto)2019-08-21 04:16:00* Test Item Value Reference Range Interpretation Comments Neutrophils (%) (Auto) (test code = 81021-9) 65.6 38.7-80.0 [facility] HospitalLymphocytes (%) (Auto)2019-08-21 04:16:00 * Test Item Value Reference Range Interpretation Comments Lymphocytes (%) (Auto) (test code = 736-9) 21.7 18.0-39.1 [facility] HospitalMonocytes (%) (Auto)2019-08-21 04:16:00* Test Item Value Reference Range Interpretation Comments Monocytes (%) (Auto) (test code = 5905-5) 10.2 4.4-11.3 [facility] HospitalEosinophils (%) (Auto)2019-08-21 04:16:00 * Test Item Value Reference Range Interpretation Comments Eosinophils (%) (Auto) (test code = 713-8) 1.7 0.0-6.0 [facility] HospitalBasophils (%) (Auto)2019-08-21 04:16:00* Test Item Value Reference Range Interpretation Comments Basophils (%) (Auto) (test code = 706-2) 0.4 0.0-1.0 [facility] HospitalIM GRANULOCYTES %2019-08-21 04:16:00* Test Item Value Reference Range Interpretation Comments IM GRANULOCYTES % (test code = IM GRANULOCYTES %) 0.4 0.0- 1.0 [facility] HospitalNeutrophils # (Auto)2019-08-21 04:16:00* Test Item Value Reference Range Interpretation Comments Neutrophils # (Auto) (test code = 751-8) 3.1 2.1-6.9 [facility] HospitalLymphocytes # (Auto)2019-08-21 04:16:00* Test Item Value Reference Range Interpretation Comments Lymphocytes # (Auto) (test code = 82229-7) 1.0 1.0-3.2 [facility] HospitalMonocytes # (Auto)2019-08-21 04:16:00* Test Item Value Reference Range Interpretation Comments Monocytes # (Auto) (test code = 742-7) 0.5 0.2-0.8 [facility] HospitalEosinophils # (Auto)2019-08-21 04:16:00* Test Item Value Reference Range Interpretation Comments Eosinophils # (Auto) (test code = 711-2) 0.1 0.0-0.4 [facility] HospitalBasophils # (Auto)2019-08-21 04:16:00* Test Item Value Reference Range Interpretation Comments Basophils # (Auto) (test code = 704-7) 0.0 0.0-0.1 [facility] HospitalAbsolute Immature Granulocyte (auto 2019-08-21 04:16:00* Test Item Value Reference Range Interpretation Comments Absolute Immature Granulocyte (auto (patel t code = Absolute Immature Granulocyte (auto) 0.02 0-0.1 [facility] HospitalUrine Mqzsvjn6953-66-62 09:32:00* Test Item Value Reference Range Interpretation Comments Urine Culture (test code = 630-4) No Result Data Provided [facility] HospitalUrine Rehpjgj0420-06-96 09:32:00* Test Item Value Reference Range Interpretation Comments Urine Culture (test code = 630-4) No Result Data Provided [facility] HospitalMagnesium Iufzz4045-55-82 07:14:00* Test Item Value Reference Range Interpretation Comments Magnesium Level (test code = 63448-1) 2.2 1.3-2.1 H [facility] HospitalMagnesium Qkppk1213-45-65 07:14:00* Test Item Value Reference Range Interpretation Comments Magnesium Level (test code = 00028-4) 2.2 1.3-2.1 H [facility] HospitalVancomycin Level Nddcog6115-96-75 07:06:00* Test Item Value Reference Range Interpretation Comments Vancomycin Level Trough (test code = 4092-3) 27.6 5.0-10.0 HH Results repeated and called to FABIENNE CALDWELL at 0705 on 08/20/19 by Kamran Jiang. Shanna shettyd back and verified.[facility] HospitalVancomycin Level Cdqirt3689-20-08 07:06:00* Test Item Value Reference Range Interpretation Comments Vancomycin Level Trough (test code = 4092-3) 27.6 5.0-10.0 HH Results repeated and called to FABIENNE CALDWELL at 0705 on 08/20/19 by Kamran Jiang. R ead back and verified.[facility] or plasma trough vancomycin level at trough (mass/volume)2019-08-20 04:24:00* Test Item Value Reference Range Interpretation Comments Vancomycin Level Trough (test code = 4092-3) 27.6 5.0-10.0 Results repeated and called to FABIENNE CALDWELL at 0705 on 08/20/19 by Kamran Jiagn. Shanna bradley back and verified.[facility] HospitalBlood Culture 2019-08-19 18:07:00* Test Item Value Reference Range Interpretation Comments Blood Culture (test code = 98563561) NO GROWTH AFTER 5 DAYS, FINAL REPORT [facility] HospitalProthrombin Wuqi8818-27-59 09:43:00* Test Item Value Reference Range Interpretation Comments Prothrombin Time (test code = 5902-2) 14.0 11.9-14.5 [facility] HospitalProthromb Time International Ratio 2019-08-19 09:43:00* Test Item Value Reference Range Interpretation Comments Prothromb Time International Ratio (test code = 6301-6) 1.06 Oral Anticoagulant Therapy INR Values:1. Low Intensity Therapy 1.5 - 2.02 . Moderate Intensity Therapy 2.0 - 3.03. High Intensity Therapy(1) 2.5 - 3. 54. High Intensity Therapy(2) 3.0 - 4.05. Panic Value INR > 5.0 [facility] HospitalActivated Partial Thromboplast Time 2019-08-19 09:43:00* Test Item Value Reference Range Interpretation Comments Activated Partial Thromboplast Time (test code = 26881-3) 36.2 23.8-35.5 H [facility] HospitalUrine Neahwej7913-69-32 12:47:00* Test Item Value Reference Range Interpretation Comments Urine Culture (test code = 630-4) No Result Data Provided [facility] HospitalUrine Npngkgy2945-99-65 12:47:00* Test Item Value Reference Range Interpretation Comments Urine Culture (test code = 630-4) No Result Data Provided [facility] HospitalBacterial urine ldyeaoa7641-33-52 11:32:00* Test Item Value Reference Range Interpretation Comments Urine Culture (test code = 630-4) [facility]ER[facility] Wgqpvzk7635-31-62 07:54:00* Test Item Value Reference Range Interpretation Comments Wound Culture (test code = 6462-6) No Result Data Provided [facility] Tlvzplj8549-64-34 07:54:00* Test Item Value Reference Range Interpretation Comments Wound Culture (test code = 6462-6) No Result Data Provided [facility]2020-01-31 07:51:00* Test Item Value Reference Range Interpretation Comments Wound Culture (test code = 6462-6) No Result Data Provided [facility]2020-01-31 07:51:00* Test Item Value Reference Range Interpretation Comments Wound Culture (test code = 6462-6) No Result Data Provided [facility] HospitalThyroid Stimulating Hormone (TSH) 2019-08-16 07:48:00* Test Item Value Reference Range Interpretation Comments Thyroid Stimulating Hormone (TSH) (test code = 95250-9) 8.423 0.350-4.940 H [facility] HospitalHemoglobin A1c Wijsoln6389-57-91 07:17:00 * Test Item Value Reference Range Interpretation Comments Hemoglobin A1c Percent (test code = Hemoglobin A1c Percent) 4.6 4.0-7.0 [facility] HospitalHemoglobin A1c Plpitxs8886-77-94 07:17:00 * Test Item Value Reference Range Interpretation Comments Hemoglobin A1c Percent (test code = Hemoglobin A1c Percent) 4.6 4.0-7.0 [facility] HospitalFluoroscopic procedure less than one hour ywratiwi2308-01-77 05:30:00* Test Item Value Reference Range Interpretation Comments Hemoglobin A1c Percent (test code = Hemoglobin A1c Percent) 4.6 4.0-7.0 [facility] HospitalABDOMEN-1VIEW (KUB)2019-08-15 10:53:00 [facility] [address] [place] [address] Patient Name: SIOBHAN BARBOSA MR #: [id number] : [birth year] Age/Sex: 54/F Req #: [id number] Adm Physician: SHIRIN KNOTT MD Ordered by: OMER LUNA MD Report #: [id number] Location: [facility] Room/Bed: [facility]-5 Procedure: [id number] DX /ABDOMEN-1VIEW (KUB) Exam Date: 08/15/19 Exam Time: 1030 REPORT STATUS: Signed Exam: KUB - 2 views Indication: Renal calculi Comparison: KUB of 12/07/2018 Findings: Unchanged left staghorn renal calculi. Left internal nephroure teral stent in place. Redemonstration of calcified gallstones and indwelling S imon Nitinol IVC filter. Extensive atherosclerotic arterial vascular calcifica tions. No acute osseous injury. Degenerative changes of the visualized spine a nd both hip joints. Impression: Left internal nephroureteral stent in g ood position. Unchanged left renal calculi. Signed by: Isael Gonzalez MD on 08/15/2019 10:56 AM Dictated By: ISAEL GONZALEZ MD 1056 Transcribed By: JENNIFER on 08/15/19 1056 C OPY TO: OMER LUNA MD Total Xtjtncnmy9871-51-40 18:33:00* Test Item Value Reference Range Interpretation Comments Total Bilirubin (test code = 1975-2) 1.0 0.2-1.2 [facility] HospitalAspartate Amino Transf (AST/SGOT) 2019-08-14 18:33:00* Test Item Value Reference Range Interpretation Comments Aspartate Amino Transf (AST/SGOT) (test code = Aspartate Amino Transf (AST/SGOT)) 59 5-34 H [facility] HospitalAlanine Aminotransferase (ALT/SGPT) 2019-08-14 18:33:00* Test Item Value Reference Range Interpretation Comments Alanine Aminotransferase (ALT/SGPT) (test code = 1742-6) 44 0-55 [facility] HospitalTotal Qubpwzo5928-38-84 18:33:00* Test Item Value Reference Range Interpretation Comments Total Protein (test code = 2885-2) 6.7 6.5-8.1 [facility] HospitalAlbumin2020-01-27 18:33:00* Test Item Value Reference Range Interpretation Comments Albumin (test code = 1751-7) 2.2 3.5-5.0 L [facility] HospitalGlobulin2020-01-27 18:33:00* Test Item Value Reference Range Interpretation Comments Globulin (test code = 88670-3) 4.5 2.3-3.5 H [facility] HospitalAlbumin/Globulin Cyrqm5885-59-61 18:33:00 * Test Item Value Reference Range Interpretation Comments Albumin/Globulin Ratio (test code = 1759-0) 0.5 0.8-2.0 L [facility] HospitalAlkaline Vkocxvlmong6926-55-81 18:33:00* Test Item Value Reference Range Interpretation Comments Alkaline Phosphatase (test code = 6768-6) 830 40-150 H [facility] HospitalFOOT COMPLETE RSEVSCCMH0597-02-54 17:41:00 [facility] [address] [address] Patient Name: SIOBHAN BARBOSA MR #: [id number] : 1965 Age/Sex: 54/F Req #: [id number] Adm Physician: Ordered by: BERNICE WEEKS DO Report #: [id number] Location: ER Room/Bed: Procedure: 0127-00 90 DX/FOOT COMPLETE BILATERAL Exam Date: Exam Time: REPORT STATUS: Signed EXAMINAT ION: FOOT COMPLETE BILATERAL INDICATION: Cellulitis COMPARISON: N one FINDINGS: Right foot: Large soft tissue erosion on the medial aspect of the foot adjacent to the first metatarsal head. There is underlying erosive change and periosteal reaction involving the lateral aspect of the fi rst metatarsal head and lateral aspect of the base of the great toe proximal p halanx, concerning for osteomyelitis. Scattered degenerative changes. Mild dif fuse osteopenia. Severe diffuse atherosclerotic arterial calcifications. Small plantar calcaneal spur. Diffuse dorsal and plantar soft tissue swelling. Smal l focus of gas at the posterior calcaneus may also represent an additional sof t tissue ulcer. Left foot: Cortical irregularity at the head of the third p roximal phalanx, only seen on the AP view may represent age-indeterminate frac ture. Diffuse foot soft tissue swelling. No specific radiographic evidence of acute osteomyelitis. Scattered degenerative changes. Diffuse osteopenia. Small plantar calcaneal spur. Severe diffuse atherosclerotic arterial calcification s. IMPRESSION: Multiple soft tissue ulcers and diffuse soft tissue swel ling of the right foot with findings concerning for osteomyelitis at the base of the great toe proximal phalanx and first metatarsal head. Diffuse soft tissue swelling of the left foot without specific radiographic evidence of os teomyelitis. Possible age-indeterminate fracture of the head of the third prox imal phalanx. Signed by: Isael Gonzalez MD on 08/14/2019 5:47 PM Dictate d By: ISAEL GONZALEZ MD 45 T ranscribed By: JENNIFER on 08/14/191746 COPY TO: BERNICE WEEKS DO Bacteria identification in wound by [id number] 16:46:00* Test Item Value Reference Range Interpretation Comments Wound Culture (test code = 6462-6) STAPHYLOCOCCUS AUREUS WALDO [facility]- XR FOOT 3 + V [id number] 22:49:00 FAX: Sid Ramos DO [place]: B St: REG Name: SIOBHAN ROBERTS [facility] : [birth year] 63 Age/S: 54/F [address] Unit #: [id number] Loc: [place] [address] Phys: Sid Ramos DO Acct: [id number] Dis Date: Status: REG ER PHONE #: [phone] Exam Date: 08/10/20192243 FAX #: [phone] Reason: open wounds EXAMS: CPT CODE: [id number] XR FOOT 3 + V RT 13837 REASON FOR EXAM: open wounds EXAM ORDER DATE: 08/10/2019 10:08 PM Ordering: Sid Ramos DO Attending:Sid Ramos DO Location:V PROCEDURE: - XR FOOT 3 + V RT FINDINGS: 3 views of the right foot were obtained. The osseous structures are severel y osteopenic. Diffuse vascular calcification suggestive of diabetic vascu lopathy seen. There is loss of the normal arch of the right foot. The monique nt spaces are maintained. No evidence of fracture. The phalanges are inta ct. The metatarsal and tarsal bones are unremarkable IMPR ESSION: Soft tissue defects suggestive of an ulcer in the right great to e. No evidence of acute osteomyelitis at 2244 Reported and signed by: Ninfa Reyez M.D. CC: Sid Ramos DO Technologist: Venkatesh Blankenship RT(R Tr nscrd Date/Time/By: 08/10/2019 (0518) : By: Mark Orig Print D/T: S: 08/10/2019 (1428) PAGE 1 Obi d Report BASIC METABOLIC [id number] 22:39:00 * Test Item Value Reference Range Interpretation Comments SODIUM (test code = NA) 142 mmol/L 136-145 N POTASSIUM (test code = K) 4.1 mmol/L 3.5-5.1 N CHLORIDE (test code = CL) 110.0 mmol/L 98-107 H CARBON DIOXIDE (test code = CO2) 22.0 mmol/L 21-32 N ANION GAP (test code = GAP) 14.1 10-20 N GLUCOSE (test code = GLU) 96 mg/dL 74-106 N BLOOD UREA NITROGEN (test code = BUN) 46 mg/dL 7-18 H GLOMERULAR FILTRATION RATE (test code = GFR) 20 mL/min >=60 Estimated GFR by using Modified MDRD formula.Chronic kidney disease is defined as either kidney damageor GFR <60 mL/min/1.73 m2 for >3 months. CREATININE (test code = CREAT) 2.50 mg/dL 0.55-1.02 H Note change in reference range due to change in reagent. BUN/CREATININE RATIO (test code = BUN/CREA) 18.4 10-20 N CALCIUM (test code = CA) 8.4 mg/dL 8.5-10.1 L BASIC METABOLIC [id number] 22:34:00* Test Item Value Reference Range Interpretation Comments SODIUM (test code = NA) 142 mmol/L 136-145 N POTASSIUM (test code = K) 4.1 mmol/L 3.5-5.1 N CHLORIDE (test code = CL) 110.0 mmol/L 98-107 H CARBON DIOXIDE (test code = CO2) mmol/L 21-32 ANION GAP (test code = GAP) 10-20 GLUCOSE (test code = GLU) mg/dL 74-106 BLOOD UREA NITROGEN (test code = BUN) mg/dL 7-18 GLOMERULAR FILTRATION RATE (test code = GFR) mL/min >=60 CREATININE (test code = CREAT) mg/dL 0.55-1.02 BUN/CREATININE RATIO (test code = BUN/CREA) 10-20 CALCIUM (test code = CA) mg/dL 8.5-10.1 CBC W/O [id number] 22:27:00* Test Item Value Reference Range Interpretation Comments WHITE BLOOD CELL (test code = WBC) 7.8 K/mm3 4.5-12.5 N RED BLOOD CELL (test code = RBC) 3.12 mill/mm3 3.7-5.2 L HEMOGLOBIN (test code = HGB) 8.8 gram/dL 11.5-15.5 L HEMATOCRIT (test code = HCT) 29.3 % 36.0-46.0 L MEAN CELL VOLUME (test code = MCV) 93.9 fL 80-98 N MEAN CELL HGB (test code = MCH) 28.2 picogram 27.0-33.0 N MEAN CELL HGB CONCETRATION (test code = MCHC) 30.0 gram/dL 33.0-36. 0 L RED CELL DISTRIBUTION WIDTH (test code = RDW) 16.2 % 11.6-16. 2 N PLATELET COUNT (test code = PLT) 85 K/mm3 150-450 L MEAN PLATELET VOLUME (test code = MPV) 12.9 fL 6.7-11.0 H CBC W/AUTO [id number] 14:40:00* Test Item Value Reference Range Interpretation Comments WHITE BLOOD CELL (test code = WBC) 4.4 K/mm3 4.5-12.5 L RED BLOOD CELL (test code = RBC) 2.84 mill/mm3 3.7-5.2 L HEMOGLOBIN (test code = HGB) 8.2 gram/dL 11.5-15.5 L HEMATOCRIT (test code = HCT) 26.9 % 36.0-46.0 L MEAN CELL VOLUME (test code = MCV) 94.7 fL 80-98 N MEAN CELL HGB (test code = MCH) 28.9 picogram 27.0-33.0 N MEAN CELL HGB CONCETRATION (test code = MCHC) 30.5 gram/dL 33.0-36. 0 L RED CELL DISTRIBUTION WIDTH (test code = RDW) 16.6 % 11.6-16. 2 H RED CELL DISTRIBUTION WIDTH SD (test code = RDW-SD) 56.7 fL 37 .0-51.0 H PLATELET COUNT (test code = PLT) 62 K/mm3 150-450 L MEAN PLATELET VOLUME (test code = MPV) 13.0 fL 6.7-11.0 H NEUTROPHIL % (test code = NT%) 60.1 % 39.0-69.0 N IMMATURE GRANULOCYTE % (test code = IG%) 0.5 % 0.0-5.0 N LYMPHOCYTE % (test code = LY%) 23.4 % 25.0-55.0 L MONOCYTE % (test code = MO%) 12.6 % 0.0-10.0 H EOSINOPHIL % (test code = EO%) 2.9 % 0.0-5.0 N BASOPHIL % (test code = BA%) 0.5 % 0.0-1.0 N NUCLEATED RBC % (test code = NRBC%) 0.0 % 0-0 N NEUTROPHIL # (test code = NT#) 2.67 K/mm3 1.8-7.7 N IMMATURE GRANULOCYTE # (test code = IG#) 0.02 x10 3/uL 0-0.03 N LYMPHOCYTE # (test code = LY#) 1.04 K/mm3 1.0-5.0 N MONOCYTE # (test code = MO#) 0.56 K/mm3 0-0.8 N EOSINOPHIL # (test code = EO#) 0.13 K/mm3 0.0-0.5 N BASOPHIL # (test code = BA#) 0.02 K/mm3 0.0-0.2 N NUCLEATED RBC # (test code = NRBC#) 0.00 K/mm3 0.0-0.1 N MANUAL DIFF REQUIRED (test code = MDIFF) NO, ONLY SCAN NEEDED DIFFERENTIAL [id number] 14:40:00* Test Item Value Reference Range Interpretation Comments STAIN ACCEPTABILITY (test code = STN ACCEPTABLE) STAIN ACCEPTABLE ANISOCYTOSIS (test code = ANISO) 2+ MACROCYTOSIS (test code = MACR) 2+ PLATELET ESTIMATE (test code = PLTEST) DECREASED PLATELET MORPHOLOGY (test code = PLTMORPH) NORMAL CBC W/AUTO [id number] 13:57:00* Test Item Value Reference Range Interpretation Comments WHITE BLOOD CELL (test code = WBC) 4.4 K/mm3 4.5-12.5 L RED BLOOD CELL (test code = RBC) 2.84 mill/mm3 3.7-5.2 L HEMOGLOBIN (test code = HGB) 8.2 gram/dL 11.5-15.5 L HEMATOCRIT (test code = HCT) 26.9 % 36.0-46.0 L MEAN CELL VOLUME (test code = MCV) 94.7 fL 80-98 N MEAN CELL HGB (test code = MCH) 28.9 picogram 27.0-33.0 N MEAN CELL HGB CONCETRATION (test code = MCHC) 30.5 gram/dL 33.0-36. 0 L RED CELL DISTRIBUTION WIDTH (test code = RDW) 16.6 % 11.6-16. 2 H RED CELL DISTRIBUTION WIDTH SD (test code = RDW-SD) 56.7 fL 37 .0-51.0 H PLATELET COUNT (test code = PLT) 62 K/mm3 150-450 L MEAN PLATELET VOLUME (test code = MPV) 13.0 fL 6.7-11.0 H NEUTROPHIL % (test code = NT%) 60.1 % 39.0-69.0 N IMMATURE GRANULOCYTE % (test code = IG%) 0.5 % 0.0-5.0 N LYMPHOCYTE % (test code = LY%) 23.4 % 25.0-55.0 L MONOCYTE % (test code = MO%) 12.6 % 0.0-10.0 H EOSINOPHIL % (test code = EO%) 2.9 % 0.0-5.0 N BASOPHIL % (test code = BA%) 0.5 % 0.0-1.0 N NUCLEATED RBC % (test code = NRBC%) 0.0 % 0-0 N NEUTROPHIL # (test code = NT#) 2.67 K/mm3 1.8-7.7 N IMMATURE GRANULOCYTE # (test code = IG#) 0.02 x10 3/uL 0-0.03 N LYMPHOCYTE # (test code = LY#) 1.04 K/mm3 1.0-5.0 N MONOCYTE # (test code = MO#) 0.56 K/mm3 0-0.8 N EOSINOPHIL # (test code = EO#) 0.13 K/mm3 0.0-0.5 N BASOPHIL # (test code = BA#) 0.02 K/mm3 0.0-0.2 N NUCLEATED RBC # (test code = NRBC#) 0.00 K/mm3 0.0-0.1 N MANUAL DIFF REQUIRED (test code = MDIFF) NO, ONLY SCAN NEEDED DIFFERENTIAL [id number] 13:57:00* Test Item Value Reference Range Interpretation Comments STAIN ACCEPTABILITY (test code = STN ACCEPTABLE) CABOT RINGS (test code = CAB) MORPHOLOGY COMMENT (test code = MOC) PLATELET ESTIMATE (test code = PLTEST) PLATELET MORPHOLOGY (test code = PLTMORPH) CBC W/AUTO [id number] 13:57:00* Test Item Value Reference Range Interpretation Comments WHITE BLOOD CELL (test code = WBC) 4.4 K/mm3 4.5-12.5 L RED BLOOD CELL (test code = RBC) 2.84 mill/mm3 3.7-5.2 L HEMOGLOBIN (test code = HGB) 8.2 gram/dL 11.5-15.5 L HEMATOCRIT (test code = HCT) 26.9 % 36.0-46.0 L MEAN CELL VOLUME (test code = MCV) 94.7 fL 80-98 N MEAN CELL HGB (test code = MCH) 28.9 picogram 27.0-33.0 N MEAN CELL HGB CONCETRATION (test code = MCHC) 30.5 gram/dL 33.0-36. 0 L RED CELL DISTRIBUTION WIDTH (test code = RDW) 16.6 % 11.6-16. 2 H RED CELL DISTRIBUTION WIDTH SD (test code = RDW-SD) 56.7 fL 37 .0-51.0 H PLATELET COUNT (test code = PLT) 62 K/mm3 150-450 L MEAN PLATELET VOLUME (test code = MPV) 13.0 fL 6.7-11.0 H NEUTROPHIL % (test code = NT%) 60.1 % 39.0-69.0 N IMMATURE GRANULOCYTE % (test code = IG%) 0.5 % 0.0-5.0 N LYMPHOCYTE % (test code = LY%) 23.4 % 25.0-55.0 L MONOCYTE % (test code = MO%) 12.6 % 0.0-10.0 H EOSINOPHIL % (test code = EO%) 2.9 % 0.0-5.0 N BASOPHIL % (test code = BA%) 0.5 % 0.0-1.0 N NUCLEATED RBC % (test code = NRBC%) 0.0 % 0-0 N NEUTROPHIL # (test code = NT#) 2.67 K/mm3 1.8-7.7 N IMMATURE GRANULOCYTE # (test code = IG#) 0.02 x10 3/uL 0-0.03 N LYMPHOCYTE # (test code = LY#) 1.04 K/mm3 1.0-5.0 N MONOCYTE # (test code = MO#) 0.56 K/mm3 0-0.8 N EOSINOPHIL # (test code = EO#) 0.13 K/mm3 0.0-0.5 N BASOPHIL # (test code = BA#) 0.02 K/mm3 0.0-0.2 N NUCLEATED RBC # (test code = NRBC#) 0.00 K/mm3 0.0-0.1 N MANUAL DIFF REQUIRED (test code = MDIFF) NO, ONLY SCAN NEEDED DIFFERENTIAL [id number] 13:57:00* Test Item Value Reference Range Interpretation Comments STAIN ACCEPTABILITY (test code = STN ACCEPTABLE) CABOT RINGS (test code = CAB) MORPHOLOGY COMMENT (test code = MOC) PLATELET ESTIMATE (test code = PLTEST) PLATELET MORPHOLOGY (test code = PLTMORPH) CBC W/AUTO [id number] 13:57:00* Test Item Value Reference Range Interpretation Comments WHITE BLOOD CELL (test code = WBC) 4.4 K/mm3 4.5-12.5 L RED BLOOD CELL (test code = RBC) 2.84 mill/mm3 3.7-5.2 L HEMOGLOBIN (test code = HGB) 8.2 gram/dL 11.5-15.5 L HEMATOCRIT (test code = HCT) 26.9 % 36.0-46.0 L MEAN CELL VOLUME (test code = MCV) 94.7 fL 80-98 N MEAN CELL HGB (test code = MCH) 28.9 picogram 27.0-33.0 N MEAN CELL HGB CONCETRATION (test code = MCHC) 30.5 gram/dL 33.0-36. 0 L RED CELL DISTRIBUTION WIDTH (test code = RDW) 16.6 % 11.6-16. 2 H RED CELL DISTRIBUTION WIDTH SD (test code = RDW-SD) 56.7 fL 37 .0-51.0 H PLATELET COUNT (test code = PLT) 62 K/mm3 150-450 L MEAN PLATELET VOLUME (test code = MPV) 13.0 fL 6.7-11.0 H NEUTROPHIL % (test code = NT%) 60.1 % 39.0-69.0 N IMMATURE GRANULOCYTE % (test code = IG%) 0.5 % 0.0-5.0 N LYMPHOCYTE % (test code = LY%) 23.4 % 25.0-55.0 L MONOCYTE % (test code = MO%) 12.6 % 0.0-10.0 H EOSINOPHIL % (test code = EO%) 2.9 % 0.0-5.0 N BASOPHIL % (test code = BA%) 0.5 % 0.0-1.0 N NUCLEATED RBC % (test code = NRBC%) 0.0 % 0-0 N NEUTROPHIL # (test code = NT#) 2.67 K/mm3 1.8-7.7 N IMMATURE GRANULOCYTE # (test code = IG#) 0.02 x10 3/uL 0-0.03 N LYMPHOCYTE # (test code = LY#) 1.04 K/mm3 1.0-5.0 N MONOCYTE # (test code = MO#) 0.56 K/mm3 0-0.8 N EOSINOPHIL # (test code = EO#) 0.13 K/mm3 0.0-0.5 N BASOPHIL # (test code = BA#) 0.02 K/mm3 0.0-0.2 N NUCLEATED RBC # (test code = NRBC#) 0.00 K/mm3 0.0-0.1 N MANUAL DIFF REQUIRED (test code = MDIFF) NO, ONLY SCAN NEEDED DIFFERENTIAL [id number] 13:57:00* Test Item Value Reference Range Interpretation Comments STAIN ACCEPTABILITY (test code = STN ACCEPTABLE) MORPHOLOGY COMMENT (test code = MOC) PLATELET ESTIMATE (test code = PLTEST) PLATELET MORPHOLOGY (test code = PLTMORPH) CBC W/AUTO [id number] 13:57:00* Test Item Value Reference Range Interpretation Comments WHITE BLOOD CELL (test code = WBC) 4.4 K/mm3 4.5-12.5 L RED BLOOD CELL (test code = RBC) 2.84 mill/mm3 3.7-5.2 L HEMOGLOBIN (test code = HGB) 8.2 gram/dL 11.5-15.5 L HEMATOCRIT (test code = HCT) 26.9 % 36.0-46.0 L MEAN CELL VOLUME (test code = MCV) 94.7 fL 80-98 N MEAN CELL HGB (test code = MCH) 28.9 picogram 27.0-33.0 N MEAN CELL HGB CONCETRATION (test code = MCHC) 30.5 gram/dL 33.0-36. 0 L RED CELL DISTRIBUTION WIDTH (test code = RDW) 16.6 % 11.6-16. 2 H RED CELL DISTRIBUTION WIDTH SD (test code = RDW-SD) 56.7 fL 37 .0-51.0 H PLATELET COUNT (test code = PLT) 62 K/mm3 150-450 L MEAN PLATELET VOLUME (test code = MPV) 13.0 fL 6.7-11.0 H NEUTROPHIL % (test code = NT%) 60.1 % 39.0-69.0 N IMMATURE GRANULOCYTE % (test code = IG%) 0.5 % 0.0-5.0 N LYMPHOCYTE % (test code = LY%) 23.4 % 25.0-55.0 L MONOCYTE % (test code = MO%) 12.6 % 0.0-10.0 H EOSINOPHIL % (test code = EO%) 2.9 % 0.0-5.0 N BASOPHIL % (test code = BA%) 0.5 % 0.0-1.0 N NUCLEATED RBC % (test code = NRBC%) 0.0 % 0-0 N NEUTROPHIL # (test code = NT#) 2.67 K/mm3 1.8-7.7 N IMMATURE GRANULOCYTE # (test code = IG#) 0.02 x10 3/uL 0-0.03 N LYMPHOCYTE # (test code = LY#) 1.04 K/mm3 1.0-5.0 N MONOCYTE # (test code = MO#) 0.56 K/mm3 0-0.8 N EOSINOPHIL # (test code = EO#) 0.13 K/mm3 0.0-0.5 N BASOPHIL # (test code = BA#) 0.02 K/mm3 0.0-0.2 N NUCLEATED RBC # (test code = NRBC#) 0.00 K/mm3 0.0-0.1 N MANUAL DIFF REQUIRED (test code = MDIFF) NO, ONLY SCAN NEEDED DIFFERENTIAL [id number] 13:57:00* Test Item Value Reference Range Interpretation Comments STAIN ACCEPTABILITY (test code = STN ACCEPTABLE) CABOT RINGS (test code = CAB) MORPHOLOGY COMMENT (test code = MOC) PLATELET ESTIMATE (test code = PLTEST) PLATELET MORPHOLOGY (test code = PLTMORPH) CBC W/AUTO [id number] 10:22:00* Test Item Value Reference Range Interpretation Comments WHITE BLOOD CELL (test code = WBC) 3.8 K/mm3 4.5-12.5 L RED BLOOD CELL (test code = RBC) 2.53 mill/mm3 3.7-5.2 L HEMOGLOBIN (test code = HGB) 7.3 gram/dL 11.5-15.5 L HEMATOCRIT (test code = HCT) 24.2 % 36.0-46.0 L MEAN CELL VOLUME (test code = MCV) 95.7 fL 80-98 N MEAN CELL HGB (test code = MCH) 28.9 picogram 27.0-33.0 N MEAN CELL HGB CONCETRATION (test code = MCHC) 30.2 gram/dL 33.0-36. 0 L RED CELL DISTRIBUTION WIDTH (test code = RDW) 16.7 % 11.6-16. 2 H RED CELL DISTRIBUTION WIDTH SD (test code = RDW-SD) 57.5 fL 37 .0-51.0 H PLATELET COUNT (test code = PLT) 48 K/mm3 150-450 LL RESULT VERIFIED BY REPEAT ANALYSISCritical results verified and read back by Nurse? Y MEAN PLATELET VOLUME (test code = MPV) 12.2 fL 6.7-11.0 H NEUTROPHIL % (test code = NT%) 63.3 % 39.0-69.0 N IMMATURE GRANULOCYTE % (test code = IG%) 0.5 % 0.0-5.0 N LYMPHOCYTE % (test code = LY%) 22.9 % 25.0-55.0 L MONOCYTE % (test code = MO%) 10.4 % 0.0-10.0 H EOSINOPHIL % (test code = EO%) 2.6 % 0.0-5.0 N BASOPHIL % (test code = BA%) 0.3 % 0.0-1.0 N NUCLEATED RBC % (test code = NRBC%) 0.0 % 0-0 N NEUTROPHIL # (test code = NT#) 2.43 K/mm3 1.8-7.7 N IMMATURE GRANULOCYTE # (test code = IG#) 0.02 x10 3/uL 0-0.03 N LYMPHOCYTE # (test code = LY#) 0.88 K/mm3 1.0-5.0 L MONOCYTE # (test code = MO#) 0.40 K/mm3 0-0.8 N EOSINOPHIL # (test code = EO#) 0.10 K/mm3 0.0-0.5 N BASOPHIL # (test code = BA#) 0.01 K/mm3 0.0-0.2 N NUCLEATED RBC # (test code = NRBC#) 0.00 K/mm3 0.0-0.1 N MANUAL DIFF REQUIRED (test code = MDIFF) NO, ONLY SCAN NEEDED DIFFERENTIAL [id number] 10:22:00* Test Item Value Reference Range Interpretation Comments STAIN ACCEPTABILITY (test code = STN ACCEPTABLE) STAIN ACCEPTABLE ANISOCYTOSIS (test code = ANISO) 2+ MACROCYTOSIS (test code = MACR) 2+ PLATELET ESTIMATE (test code = PLTEST) DECREASED PLATELET MORPHOLOGY (test code = PLTMORPH) SIZE VARIABLE CBC W/AUTO [id number] 10:04:00* Test Item Value Reference Range Interpretation Comments WHITE BLOOD CELL (test code = WBC) 3.8 K/mm3 4.5-12.5 L RED BLOOD CELL (test code = RBC) 2.53 mill/mm3 3.7-5.2 L HEMOGLOBIN (test code = HGB) 7.3 gram/dL 11.5-15.5 L HEMATOCRIT (test code = HCT) 24.2 % 36.0-46.0 L MEAN CELL VOLUME (test code = MCV) 95.7 fL 80-98 N MEAN CELL HGB (test code = MCH) 28.9 picogram 27.0-33.0 N MEAN CELL HGB CONCETRATION (test code = MCHC) 30.2 gram/dL 33.0-36. 0 L RED CELL DISTRIBUTION WIDTH (test code = RDW) 16.7 % 11.6-16. 2 H RED CELL DISTRIBUTION WIDTH SD (test code = RDW-SD) 57.5 fL 37 .0-51.0 H PLATELET COUNT (test code = PLT) 48 K/mm3 150-450 LL RESULT VERIFIED BY REPEAT ANALYSISCritical results verified and read back by Nurse? Y MEAN PLATELET VOLUME (test code = MPV) 12.2 fL 6.7-11.0 H NEUTROPHIL % (test code = NT%) 63.3 % 39.0-69.0 N IMMATURE GRANULOCYTE % (test code = IG%) 0.5 % 0.0-5.0 N LYMPHOCYTE % (test code = LY%) 22.9 % 25.0-55.0 L MONOCYTE % (test code = MO%) 10.4 % 0.0-10.0 H EOSINOPHIL % (test code = EO%) 2.6 % 0.0-5.0 N BASOPHIL % (test code = BA%) 0.3 % 0.0-1.0 N NUCLEATED RBC % (test code = NRBC%) 0.0 % 0-0 N NEUTROPHIL # (test code = NT#) 2.43 K/mm3 1.8-7.7 N IMMATURE GRANULOCYTE # (test code = IG#) 0.02 x10 3/uL 0-0.03 N LYMPHOCYTE # (test code = LY#) 0.88 K/mm3 1.0-5.0 L MONOCYTE # (test code = MO#) 0.40 K/mm3 0-0.8 N EOSINOPHIL # (test code = EO#) 0.10 K/mm3 0.0-0.5 N BASOPHIL # (test code = BA#) 0.01 K/mm3 0.0-0.2 N NUCLEATED RBC # (test code = NRBC#) 0.00 K/mm3 0.0-0.1 N MANUAL DIFF REQUIRED (test code = MDIFF) NO, ONLY SCAN NEEDED DIFFERENTIAL [id number] 10:04:00* Test Item Value Reference Range Interpretation Comments STAIN ACCEPTABILITY (test code = STN ACCEPTABLE) CABOT RINGS (test code = CAB) MORPHOLOGY COMMENT (test code = MOC) PLATELET ESTIMATE (test code = PLTEST) PLATELET MORPHOLOGY (test code = PLTMORPH) CBC W/AUTO [id number] 10:04:00* Test Item Value Reference Range Interpretation Comments WHITE BLOOD CELL (test code = WBC) 3.8 K/mm3 4.5-12.5 L RED BLOOD CELL (test code = RBC) 2.53 mill/mm3 3.7-5.2 L HEMOGLOBIN (test code = HGB) 7.3 gram/dL 11.5-15.5 L HEMATOCRIT (test code = HCT) 24.2 % 36.0-46.0 L MEAN CELL VOLUME (test code = MCV) 95.7 fL 80-98 N MEAN CELL HGB (test code = MCH) 28.9 picogram 27.0-33.0 N MEAN CELL HGB CONCETRATION (test code = MCHC) 30.2 gram/dL 33.0-36. 0 L RED CELL DISTRIBUTION WIDTH (test code = RDW) 16.7 % 11.6-16. 2 H RED CELL DISTRIBUTION WIDTH SD (test code = RDW-SD) 57.5 fL 37 .0-51.0 H PLATELET COUNT (test code = PLT) 48 K/mm3 150-450 LL RESULT VERIFIED BY REPEAT ANALYSISCritical results verified and read back by Nurse? Y MEAN PLATELET VOLUME (test code = MPV) 12.2 fL 6.7-11.0 H NEUTROPHIL % (test code = NT%) 63.3 % 39.0-69.0 N IMMATURE GRANULOCYTE % (test code = IG%) 0.5 % 0.0-5.0 N LYMPHOCYTE % (test code = LY%) 22.9 % 25.0-55.0 L MONOCYTE % (test code = MO%) 10.4 % 0.0-10.0 H EOSINOPHIL % (test code = EO%) 2.6 % 0.0-5.0 N BASOPHIL % (test code = BA%) 0.3 % 0.0-1.0 N NUCLEATED RBC % (test code = NRBC%) 0.0 % 0-0 N NEUTROPHIL # (test code = NT#) 2.43 K/mm3 1.8-7.7 N IMMATURE GRANULOCYTE # (test code = IG#) 0.02 x10 3/uL 0-0.03 N LYMPHOCYTE # (test code = LY#) 0.88 K/mm3 1.0-5.0 L MONOCYTE # (test code = MO#) 0.40 K/mm3 0-0.8 N EOSINOPHIL # (test code = EO#) 0.10 K/mm3 0.0-0.5 N BASOPHIL # (test code = BA#) 0.01 K/mm3 0.0-0.2 N NUCLEATED RBC # (test code = NRBC#) 0.00 K/mm3 0.0-0.1 N MANUAL DIFF REQUIRED (test code = MDIFF) NO, ONLY SCAN NEEDED DIFFERENTIAL [id number] 10:04:00* Test Item Value Reference Range Interpretation Comments STAIN ACCEPTABILITY (test code = STN ACCEPTABLE) CABOT RINGS (test code = CAB) MORPHOLOGY COMMENT (test code = MOC) PLATELET ESTIMATE (test code = PLTEST) PLATELET MORPHOLOGY (test code = PLTMORPH) CBC W/AUTO [id number] 10:04:00* Test Item Value Reference Range Interpretation Comments WHITE BLOOD CELL (test code = WBC) 3.8 K/mm3 4.5-12.5 L RED BLOOD CELL (test code = RBC) 2.53 mill/mm3 3.7-5.2 L HEMOGLOBIN (test code = HGB) 7.3 gram/dL 11.5-15.5 L HEMATOCRIT (test code = HCT) 24.2 % 36.0-46.0 L MEAN CELL VOLUME (test code = MCV) 95.7 fL 80-98 N MEAN CELL HGB (test code = MCH) 28.9 picogram 27.0-33.0 N MEAN CELL HGB CONCETRATION (test code = MCHC) 30.2 gram/dL 33.0-36. 0 L RED CELL DISTRIBUTION WIDTH (test code = RDW) 16.7 % 11.6-16. 2 H RED CELL DISTRIBUTION WIDTH SD (test code = RDW-SD) 57.5 fL 37 .0-51.0 H PLATELET COUNT (test code = PLT) 48 K/mm3 150-450 LL RESULT VERIFIED BY REPEAT ANALYSISCritical results verified and read back by Nurse? Y MEAN PLATELET VOLUME (test code = MPV) 12.2 fL 6.7-11.0 H NEUTROPHIL % (test code = NT%) 63.3 % 39.0-69.0 N IMMATURE GRANULOCYTE % (test code = IG%) 0.5 % 0.0-5.0 N LYMPHOCYTE % (test code = LY%) 22.9 % 25.0-55.0 L MONOCYTE % (test code = MO%) 10.4 % 0.0-10.0 H EOSINOPHIL % (test code = EO%) 2.6 % 0.0-5.0 N BASOPHIL % (test code = BA%) 0.3 % 0.0-1.0 N NUCLEATED RBC % (test code = NRBC%) 0.0 % 0-0 N NEUTROPHIL # (test code = NT#) 2.43 K/mm3 1.8-7.7 N IMMATURE GRANULOCYTE # (test code = IG#) 0.02 x10 3/uL 0-0.03 N LYMPHOCYTE # (test code = LY#) 0.88 K/mm3 1.0-5.0 L MONOCYTE # (test code = MO#) 0.40 K/mm3 0-0.8 N EOSINOPHIL # (test code = EO#) 0.10 K/mm3 0.0-0.5 N BASOPHIL # (test code = BA#) 0.01 K/mm3 0.0-0.2 N NUCLEATED RBC # (test code = NRBC#) 0.00 K/mm3 0.0-0.1 N MANUAL DIFF REQUIRED (test code = MDIFF) NO, ONLY SCAN NEEDED DIFFERENTIAL [id number] 10:04:00* Test Item Value Reference Range Interpretation Comments STAIN ACCEPTABILITY (test code = STN ACCEPTABLE) MORPHOLOGY COMMENT (test code = MOC) PLATELET ESTIMATE (test code = PLTEST) PLATELET MORPHOLOGY (test code = PLTMORPH) BASIC METABOLIC [id number] 10:04:00* Test Item Value Reference Range Interpretation Comments SODIUM (test code = NA) 142 mmol/L 136-145 N POTASSIUM (test code = K) 4.5 mmol/L 3.5-5.1 N CHLORIDE (test code = CL) 112.0 mmol/L 98-107 H CARBON DIOXIDE (test code = CO2) 21.0 mmol/L 21-32 N ANION GAP (test code = GAP) 13.5 10-20 N GLUCOSE (test code = GLU) 115 mg/dL 74-106 H BLOOD UREA NITROGEN (test code = BUN) 66 mg/dL 7-18 H GLOMERULAR FILTRATION RATE (test code = GFR) 18 mL/min >=60 Estimated GFR by using Modified MDRD formula.Chronic kidney disease is defined as either kidney damageor GFR <60 mL/min/1.73 m2 for >3 months. CREATININE (test code = CREAT) 2.80 mg/dL 0.55-1.02 H Note change in reference range due to change in reagent. BUN/CREATININE RATIO (test code = BUN/CREA) 23.6 10-20 H CALCIUM (test code = CA) 8.3 mg/dL 8.5-10.1 L CBC W/AUTO [id number] 10:04:00* Test Item Value Reference Range Interpretation Comments WHITE BLOOD CELL (test code = WBC) 3.8 K/mm3 4.5-12.5 L RED BLOOD CELL (test code = RBC) 2.53 mill/mm3 3.7-5.2 L HEMOGLOBIN (test code = HGB) 7.3 gram/dL 11.5-15.5 L HEMATOCRIT (test code = HCT) 24.2 % 36.0-46.0 L MEAN CELL VOLUME (test code = MCV) 95.7 fL 80-98 N MEAN CELL HGB (test code = MCH) 28.9 picogram 27.0-33.0 N MEAN CELL HGB CONCETRATION (test code = MCHC) 30.2 gram/dL 33.0-36. 0 L RED CELL DISTRIBUTION WIDTH (test code = RDW) 16.7 % 11.6-16. 2 H RED CELL DISTRIBUTION WIDTH SD (test code = RDW-SD) 57.5 fL 37 .0-51.0 H PLATELET COUNT (test code = PLT) 48 K/mm3 150-450 LL RESULT VERIFIED BY REPEAT ANALYSISCritical results verified and read back by Nurse? Y MEAN PLATELET VOLUME (test code = MPV) 12.2 fL 6.7-11.0 H NEUTROPHIL % (test code = NT%) 63.3 % 39.0-69.0 N IMMATURE GRANULOCYTE % (test code = IG%) 0.5 % 0.0-5.0 N LYMPHOCYTE % (test code = LY%) 22.9 % 25.0-55.0 L MONOCYTE % (test code = MO%) 10.4 % 0.0-10.0 H EOSINOPHIL % (test code = EO%) 2.6 % 0.0-5.0 N BASOPHIL % (test code = BA%) 0.3 % 0.0-1.0 N NUCLEATED RBC % (test code = NRBC%) 0.0 % 0-0 N NEUTROPHIL # (test code = NT#) 2.43 K/mm3 1.8-7.7 N IMMATURE GRANULOCYTE # (test code = IG#) 0.02 x10 3/uL 0-0.03 N LYMPHOCYTE # (test code = LY#) 0.88 K/mm3 1.0-5.0 L MONOCYTE # (test code = MO#) 0.40 K/mm3 0-0.8 N EOSINOPHIL # (test code = EO#) 0.10 K/mm3 0.0-0.5 N BASOPHIL # (test code = BA#) 0.01 K/mm3 0.0-0.2 N NUCLEATED RBC # (test code = NRBC#) 0.00 K/mm3 0.0-0.1 N MANUAL DIFF REQUIRED (test code = MDIFF) NO, ONLY SCAN NEEDED DIFFERENTIAL [id number] 10:04:00* Test Item Value Reference Range Interpretation Comments STAIN ACCEPTABILITY (test code = STN ACCEPTABLE) CABOT RINGS (test code = CAB) MORPHOLOGY COMMENT (test code = MOC) PLATELET ESTIMATE (test code = PLTEST) PLATELET MORPHOLOGY (test code = PLTMORPH) CBC W/AUTO [id number] 13:37:00* Test Item Value Reference Range Interpretation Comments WHITE BLOOD CELL (test code = WBC) 5.5 K/mm3 4.5-12.5 N RED BLOOD CELL (test code = RBC) 3.03 mill/mm3 3.7-5.2 L HEMOGLOBIN (test code = HGB) 8.7 gram/dL 11.5-15.5 L HEMATOCRIT (test code = HCT) 29.2 % 36.0-46.0 L MEAN CELL VOLUME (test code = MCV) 96.4 fL 80-98 N MEAN CELL HGB (test code = MCH) 28.7 picogram 27.0-33.0 N MEAN CELL HGB CONCETRATION (test code = MCHC) 29.8 gram/dL 33.0-36. 0 L RED CELL DISTRIBUTION WIDTH (test code = RDW) 16.8 % 11.6-16. 2 H RED CELL DISTRIBUTION WIDTH SD (test code = RDW-SD) 58.0 fL 37 .0-51.0 H PLATELET COUNT (test code = PLT) 55 K/mm3 150-450 L MEAN PLATELET VOLUME (test code = MPV) 12.9 fL 6.7-11.0 H NEUTROPHIL % (test code = NT%) 73.9 % 39.0-69.0 H IMMATURE GRANULOCYTE % (test code = IG%) 0.5 % 0.0-5.0 N LYMPHOCYTE % (test code = LY%) 15.4 % 25.0-55.0 L MONOCYTE % (test code = MO%) 8.3 % 0.0-10.0 N EOSINOPHIL % (test code = EO%) 1.5 % 0.0-5.0 N BASOPHIL % (test code = BA%) 0.4 % 0.0-1.0 N NUCLEATED RBC % (test code = NRBC%) 0.0 % 0-0 N NEUTROPHIL # (test code = NT#) 4.07 K/mm3 1.8-7.7 N IMMATURE GRANULOCYTE # (test code = IG#) 0.03 x10 3/uL 0-0.03 N LYMPHOCYTE # (test code = LY#) 0.85 K/mm3 1.0-5.0 L MONOCYTE # (test code = MO#) 0.46 K/mm3 0-0.8 N EOSINOPHIL # (test code = EO#) 0.08 K/mm3 0.0-0.5 N BASOPHIL # (test code = BA#) 0.02 K/mm3 0.0-0.2 N NUCLEATED RBC # (test code = NRBC#) 0.00 K/mm3 0.0-0.1 N MANUAL DIFF REQUIRED (test code = MDIFF) NO, ONLY SCAN NEEDED DIFFERENTIAL [id number] 13:37:00* Test Item Value Reference Range Interpretation Comments STAIN ACCEPTABILITY (test code = STN ACCEPTABLE) STAIN ACCEPTABLE ANISOCYTOSIS (test code = ANISO) 2+ MACROCYTOSIS (test code = MACR) 2+ PLATELET ESTIMATE (test code = PLTEST) DECREASED PLATELET MORPHOLOGY (test code = PLTMORPH) APPEAR LARGE CBC W/AUTO [id number] 13:05:00* Test Item Value Reference Range Interpretation Comments WHITE BLOOD CELL (test code = WBC) 5.5 K/mm3 4.5-12.5 N RED BLOOD CELL (test code = RBC) 3.03 mill/mm3 3.7-5.2 L HEMOGLOBIN (test code = HGB) 8.7 gram/dL 11.5-15.5 L HEMATOCRIT (test code = HCT) 29.2 % 36.0-46.0 L MEAN CELL VOLUME (test code = MCV) 96.4 fL 80-98 N MEAN CELL HGB (test code = MCH) 28.7 picogram 27.0-33.0 N MEAN CELL HGB CONCETRATION (test code = MCHC) 29.8 gram/dL 33.0-36. 0 L RED CELL DISTRIBUTION WIDTH (test code = RDW) 16.8 % 11.6-16. 2 H RED CELL DISTRIBUTION WIDTH SD (test code = RDW-SD) 58.0 fL 37 .0-51.0 H PLATELET COUNT (test code = PLT) 55 K/mm3 150-450 L MEAN PLATELET VOLUME (test code = MPV) 12.9 fL 6.7-11.0 H NEUTROPHIL % (test code = NT%) 73.9 % 39.0-69.0 H IMMATURE GRANULOCYTE % (test code = IG%) 0.5 % 0.0-5.0 N LYMPHOCYTE % (test code = LY%) 15.4 % 25.0-55.0 L MONOCYTE % (test code = MO%) 8.3 % 0.0-10.0 N EOSINOPHIL % (test code = EO%) 1.5 % 0.0-5.0 N BASOPHIL % (test code = BA%) 0.4 % 0.0-1.0 N NUCLEATED RBC % (test code = NRBC%) 0.0 % 0-0 N NEUTROPHIL # (test code = NT#) 4.07 K/mm3 1.8-7.7 N IMMATURE GRANULOCYTE # (test code = IG#) 0.03 x10 3/uL 0-0.03 N LYMPHOCYTE # (test code = LY#) 0.85 K/mm3 1.0-5.0 L MONOCYTE # (test code = MO#) 0.46 K/mm3 0-0.8 N EOSINOPHIL # (test code = EO#) 0.08 K/mm3 0.0-0.5 N BASOPHIL # (test code = BA#) 0.02 K/mm3 0.0-0.2 N NUCLEATED RBC # (test code = NRBC#) 0.00 K/mm3 0.0-0.1 N MANUAL DIFF REQUIRED (test code = MDIFF) NO, ONLY SCAN NEEDED DIFFERENTIAL [id number] 13:05:00* Test Item Value Reference Range Interpretation Comments STAIN ACCEPTABILITY (test code = STN ACCEPTABLE) CABOT RINGS (test code = CAB) MORPHOLOGY COMMENT (test code = MOC) PLATELET ESTIMATE (test code = PLTEST) PLATELET MORPHOLOGY (test code = PLTMORPH) CBC W/AUTO [id number] 13:05:00* Test Item Value Reference Range Interpretation Comments WHITE BLOOD CELL (test code = WBC) 5.5 K/mm3 4.5-12.5 N RED BLOOD CELL (test code = RBC) 3.03 mill/mm3 3.7-5.2 L HEMOGLOBIN (test code = HGB) 8.7 gram/dL 11.5-15.5 L HEMATOCRIT (test code = HCT) 29.2 % 36.0-46.0 L MEAN CELL VOLUME (test code = MCV) 96.4 fL 80-98 N MEAN CELL HGB (test code = MCH) 28.7 picogram 27.0-33.0 N MEAN CELL HGB CONCETRATION (test code = MCHC) 29.8 gram/dL 33.0-36. 0 L RED CELL DISTRIBUTION WIDTH (test code = RDW) 16.8 % 11.6-16. 2 H RED CELL DISTRIBUTION WIDTH SD (test code = RDW-SD) 58.0 fL 37 .0-51.0 H PLATELET COUNT (test code = PLT) 55 K/mm3 150-450 L MEAN PLATELET VOLUME (test code = MPV) 12.9 fL 6.7-11.0 H NEUTROPHIL % (test code = NT%) 73.9 % 39.0-69.0 H IMMATURE GRANULOCYTE % (test code = IG%) 0.5 % 0.0-5.0 N LYMPHOCYTE % (test code = LY%) 15.4 % 25.0-55.0 L MONOCYTE % (test code = MO%) 8.3 % 0.0-10.0 N EOSINOPHIL % (test code = EO%) 1.5 % 0.0-5.0 N BASOPHIL % (test code = BA%) 0.4 % 0.0-1.0 N NUCLEATED RBC % (test code = NRBC%) 0.0 % 0-0 N NEUTROPHIL # (test code = NT#) 4.07 K/mm3 1.8-7.7 N IMMATURE GRANULOCYTE # (test code = IG#) 0.03 x10 3/uL 0-0.03 N LYMPHOCYTE # (test code = LY#) 0.85 K/mm3 1.0-5.0 L MONOCYTE # (test code = MO#) 0.46 K/mm3 0-0.8 N EOSINOPHIL # (test code = EO#) 0.08 K/mm3 0.0-0.5 N BASOPHIL # (test code = BA#) 0.02 K/mm3 0.0-0.2 N NUCLEATED RBC # (test code = NRBC#) 0.00 K/mm3 0.0-0.1 N MANUAL DIFF REQUIRED (test code = MDIFF) NO, ONLY SCAN NEEDED DIFFERENTIAL [id number] 13:05:00* Test Item Value Reference Range Interpretation Comments STAIN ACCEPTABILITY (test code = STN ACCEPTABLE) CABOT RINGS (test code = CAB) MORPHOLOGY COMMENT (test code = MOC) PLATELET ESTIMATE (test code = PLTEST) PLATELET MORPHOLOGY (test code = PLTMORPH) CBC W/AUTO [id number] 13:05:00* Test Item Value Reference Range Interpretation Comments WHITE BLOOD CELL (test code = WBC) 5.5 K/mm3 4.5-12.5 N RED BLOOD CELL (test code = RBC) 3.03 mill/mm3 3.7-5.2 L HEMOGLOBIN (test code = HGB) 8.7 gram/dL 11.5-15.5 L HEMATOCRIT (test code = HCT) 29.2 % 36.0-46.0 L MEAN CELL VOLUME (test code = MCV) 96.4 fL 80-98 N MEAN CELL HGB (test code = MCH) 28.7 picogram 27.0-33.0 N MEAN CELL HGB CONCETRATION (test code = MCHC) 29.8 gram/dL 33.0-36. 0 L RED CELL DISTRIBUTION WIDTH (test code = RDW) 16.8 % 11.6-16. 2 H RED CELL DISTRIBUTION WIDTH SD (test code = RDW-SD) 58.0 fL 37 .0-51.0 H PLATELET COUNT (test code = PLT) 55 K/mm3 150-450 L MEAN PLATELET VOLUME (test code = MPV) 12.9 fL 6.7-11.0 H NEUTROPHIL % (test code = NT%) 73.9 % 39.0-69.0 H IMMATURE GRANULOCYTE % (test code = IG%) 0.5 % 0.0-5.0 N LYMPHOCYTE % (test code = LY%) 15.4 % 25.0-55.0 L MONOCYTE % (test code = MO%) 8.3 % 0.0-10.0 N EOSINOPHIL % (test code = EO%) 1.5 % 0.0-5.0 N BASOPHIL % (test code = BA%) 0.4 % 0.0-1.0 N NUCLEATED RBC % (test code = NRBC%) 0.0 % 0-0 N NEUTROPHIL # (test code = NT#) 4.07 K/mm3 1.8-7.7 N IMMATURE GRANULOCYTE # (test code = IG#) 0.03 x10 3/uL 0-0.03 N LYMPHOCYTE # (test code = LY#) 0.85 K/mm3 1.0-5.0 L MONOCYTE # (test code = MO#) 0.46 K/mm3 0-0.8 N EOSINOPHIL # (test code = EO#) 0.08 K/mm3 0.0-0.5 N BASOPHIL # (test code = BA#) 0.02 K/mm3 0.0-0.2 N NUCLEATED RBC # (test code = NRBC#) 0.00 K/mm3 0.0-0.1 N MANUAL DIFF REQUIRED (test code = MDIFF) NO, ONLY SCAN NEEDED DIFFERENTIAL [id number] 13:05:00* Test Item Value Reference Range Interpretation Comments STAIN ACCEPTABILITY (test code = STN ACCEPTABLE) MORPHOLOGY COMMENT (test code = MOC) PLATELET ESTIMATE (test code = PLTEST) PLATELET MORPHOLOGY (test code = PLTMORPH) CBC W/AUTO [id number] 13:05:00* Test Item Value Reference Range Interpretation Comments WHITE BLOOD CELL (test code = WBC) 5.5 K/mm3 4.5-12.5 N RED BLOOD CELL (test code = RBC) 3.03 mill/mm3 3.7-5.2 L HEMOGLOBIN (test code = HGB) 8.7 gram/dL 11.5-15.5 L HEMATOCRIT (test code = HCT) 29.2 % 36.0-46.0 L MEAN CELL VOLUME (test code = MCV) 96.4 fL 80-98 N MEAN CELL HGB (test code = MCH) 28.7 picogram 27.0-33.0 N MEAN CELL HGB CONCETRATION (test code = MCHC) 29.8 gram/dL 33.0-36. 0 L RED CELL DISTRIBUTION WIDTH (test code = RDW) 16.8 % 11.6-16. 2 H RED CELL DISTRIBUTION WIDTH SD (test code = RDW-SD) 58.0 fL 37 .0-51.0 H PLATELET COUNT (test code = PLT) 55 K/mm3 150-450 L MEAN PLATELET VOLUME (test code = MPV) 12.9 fL 6.7-11.0 H NEUTROPHIL % (test code = NT%) 73.9 % 39.0-69.0 H IMMATURE GRANULOCYTE % (test code = IG%) 0.5 % 0.0-5.0 N LYMPHOCYTE % (test code = LY%) 15.4 % 25.0-55.0 L MONOCYTE % (test code = MO%) 8.3 % 0.0-10.0 N EOSINOPHIL % (test code = EO%) 1.5 % 0.0-5.0 N BASOPHIL % (test code = BA%) 0.4 % 0.0-1.0 N NUCLEATED RBC % (test code = NRBC%) 0.0 % 0-0 N NEUTROPHIL # (test code = NT#) 4.07 K/mm3 1.8-7.7 N IMMATURE GRANULOCYTE # (test code = IG#) 0.03 x10 3/uL 0-0.03 N LYMPHOCYTE # (test code = LY#) 0.85 K/mm3 1.0-5.0 L MONOCYTE # (test code = MO#) 0.46 K/mm3 0-0.8 N EOSINOPHIL # (test code = EO#) 0.08 K/mm3 0.0-0.5 N BASOPHIL # (test code = BA#) 0.02 K/mm3 0.0-0.2 N NUCLEATED RBC # (test code = NRBC#) 0.00 K/mm3 0.0-0.1 N MANUAL DIFF REQUIRED (test code = MDIFF) NO, ONLY SCAN NEEDED DIFFERENTIAL [id number] 13:05:00* Test Item Value Reference Range Interpretation Comments STAIN ACCEPTABILITY (test code = STN ACCEPTABLE) CABOT RINGS (test code = CAB) MORPHOLOGY COMMENT (test code = MOC) PLATELET ESTIMATE (test code = PLTEST) PLATELET MORPHOLOGY (test code = PLTMORPH) - XR ABDOMEN AP 1 [id number] 19:17:00 FAX: Omer Coobms MD [phone] [place]: B St: [facility] FAX: Breanna Thomas MD Name: SIOBHAN BARBOSA [facility] : 1965 Age/S: 54/F [address] [facility] Unit #: [id number] [facility] [place] [address] Phys: Omer Luna MD Acct: [id number] Dis Date: Status: ADM IN PHONE #: [phone] Exam Date: 07/30/2019 1834 FAX #: [phone] Reason: EVALUATE STENT AND ST ONES EXAMS: CPT CODE: [id number] XR ABDOMEN AP 1 V [id number] EXAM: Abdomen, 2 views; INFORMATION: Kidney stones ; stent; FINDINGS: Large left staghorn calculus and multiple additional calyceal stones. The left double pigtail ureteral stent is wel l-positioned. Calcifications in the right upper quadrant are consistent wi th gallstones. Kel nitinol IVC filter is in place. It is position ed at the level of L2/3. Unremarkable bowel gas pattern; no evidence of obstruction or other acute abnormalities. Arterial calcification s. IMPRESSION: 1. Multiple left renal stones including a large staghorn calculus. 2. Well-positioned left ureteral stent. 3. Cholecystolithiasis. Location code: [facility] at 1916 Reported and signed by : Jameel Alvarez M.D. CC: Omer Luna MD; Breanna Kirby MD Technologist: JEAN CARLOS CANAS RT (R); Loulou Carreon RT (R) Trnscrd Date/Time/By: 07/30/2019 (1916) : By: [email or web address] Orig Print D/T: S: 07/30/2019 (1920) PAGE 1 Signed Report URINALYSIS [id number] 08:37:00* Test Item Value Reference Range Interpretation Comments UA COLOR (test code = COLU) Dark-Yellow YELLOW UA APPEARANCE (test code = APPU) TURBID CLEAR A UA GLUCOSE DIPSTICK (test code = DGLUU) NEGATIVE mg/dL NEGATIVE UA BILIRUBIN DIPSTICK (test code = BILU) NEGATIVE mg/dL NEGATIVE UA KETONE DIPSTICK (test code = KETU) NEGATIVE mg/dL NEGATIVE UA SPECIFIC GRAVITY (test code = SGU) 1.010 1.001-1.035 UA BLOOD DIPSTICK (test code = JONO) 1.0 mg/dL (3+) mg/dL NEGATIVE A UA PH DIPSTICK (test code = AHMET) 5.5 5.0-8.0 UA PROTEIN DIPSTICK (test code = PROU) 70 (1+) mg/dL NEGATIVE A UA UROBILINIOGEN DIPSTICK (test code = URO) Normal mg/dL NEGATIVE UA NITRITE DIPSTICK (test code = IFEOMA) POSITIVE NEGATIVE A UA LEUKOCYTE ESTERASE W REFLEX (test code = LEUUR) 500 Franki/u L (3+) Franki/uL NEGATIVE A UA WBC (test code = WBCU) >200 per HPF 0-5 A UA RBC (test code = RBCU) 101-150 #/HPF 0-5 UA WBC CLUMPS (test code = WBCUCL) >10 /HPF NONE A UA EPITHELIAL CELLS (test code = EPIU) MANY per HPF FEW UA BACTERIA (test code = BACU) MODERATE #/HPF NONE A Urine Source? CatheterURINALYSIS [id number] 08:35:00* Test Item Value Reference Range Interpretation Comments UA COLOR (test code = COLU) Dark-Yellow YELLOW UA APPEARANCE (test code = APPU) TURBID CLEAR A UA GLUCOSE DIPSTICK (test code = DGLUU) NEGATIVE mg/dL NEGATIVE UA BILIRUBIN DIPSTICK (test code = BILU) NEGATIVE mg/dL NEGATIVE UA KETONE DIPSTICK (test code = KETU) NEGATIVE mg/dL NEGATIVE UA SPECIFIC GRAVITY (test code = SGU) 1.010 1.001-1.035 UA BLOOD DIPSTICK (test code = JONO) 1.0 mg/dL (3+) mg/dL NEGATIVE A UA PH DIPSTICK (test code = AHMET) 5.5 5.0-8.0 UA PROTEIN DIPSTICK (test code = PROU) 70 (1+) mg/dL NEGATIVE A UA UROBILINIOGEN DIPSTICK (test code = URO) Normal mg/dL NEGATIVE UA NITRITE DIPSTICK (test code = IFEOMA) POSITIVE NEGATIVE A UA LEUKOCYTE ESTERASE W REFLEX (test code = LEUUR) 500 Franki/u L (3+) Franki/uL NEGATIVE A UA WBC (test code = WBCU) per HPF 0-5 UA RBC (test code = RBCU) per HPF 0-5 UA EPITHELIAL CELLS (test code = EPIU) per HPF Few UA BACTERIA (test code = BACU) per HPF NONE Urine Source? CatheterSED [id number] 10:10:00* Test Item Value Reference Range Interpretation Comments SED RATE (test code = SEDW) 36 mm/hr 0-20 H WINTROBE METHOD: NORMAL RANGE FOR MEN: 0-9 MM/HR WOMAN: 0-20 MM/HR SED RATE [id number] 10:09:00* Test Item Value Reference Range Interpretation Comments SED RATE DEDRICKREN (test code = SEDW) 36 mm/hr 0-20 H AB HIV 1 10:03:00* Test Item Value Reference Range Interpretation Comments AB HIV 1 2 (test code = [id number]) Nonreactive NonReactive It is recognized that currently available assays for thedetection of antibodies to HIV-1 and/or HIV-2 may notdetect all infected individuals. A negative test result doesnot exclude the possibility of exposure to or infection withHIV. HIV antibodies may be undetectable in some stages ofthe infection and in some clinical conditions. C REACTIVE [id number] 05:06:00* Test Item Value Reference Range Interpretation Comments C REACTIVE PROTEIN (test code = CRP) 14.80 mg/dL 0-0.3 H [id number] 05:05:00* Test Item Value Reference Range Interpretation Comments GLYCOSYLATED HEMOGLOBIN (HA1C) (test code = GLYHGB) 5.0 % HbA1 SUGGESTED DIAGNOSIS: HbA1C (%) Diabetic >6.4Prediabetes 5.7 - 6.4Normal <5.7 ESTIMATED AVERAGE GLUCOSE (test code = EAG) 97 MG/DL CBC W/AUTO [id number] 20:28:00* Test Item Value Reference Range Interpretation Comments WHITE BLOOD CELL (test code = WBC) 11.6 K/mm3 4.5-12.5 N RED BLOOD CELL (test code = RBC) 3.35 mill/mm3 3.7-5.2 L HEMOGLOBIN (test code = HGB) 9.8 gram/dL 11.5-15.5 L HEMATOCRIT (test code = HCT) 31.7 % 36.0-46.0 L MEAN CELL VOLUME (test code = MCV) 94.6 fL 80-98 N MEAN CELL HGB (test code = MCH) 29.3 picogram 27.0-33.0 N MEAN CELL HGB CONCETRATION (test code = MCHC) 30.9 gram/dL 33.0-36. 0 L RED CELL DISTRIBUTION WIDTH (test code = RDW) 16.0 % 11.6-16. 2 N RED CELL DISTRIBUTION WIDTH SD (test code = RDW-SD) 55.4 fL 37 .0-51.0 H PLATELET COUNT (test code = PLT) 74 K/mm3 150-450 L MEAN PLATELET VOLUME (test code = MPV) 11.9 fL 6.7-11.0 H NEUTROPHIL % (test code = NT%) 81.4 % 39.0-69.0 H IMMATURE GRANULOCYTE % (test code = IG%) 1.1 % 0.0-5.0 N LYMPHOCYTE % (test code = LY%) 10.0 % 25.0-55.0 L MONOCYTE % (test code = MO%) 6.9 % 0.0-10.0 N EOSINOPHIL % (test code = EO%) 0.3 % 0.0-5.0 N BASOPHIL % (test code = BA%) 0.3 % 0.0-1.0 N NUCLEATED RBC % (test code = NRBC%) 0.0 % 0-0 N NEUTROPHIL # (test code = NT#) 9.42 K/mm3 1.8-7.7 H IMMATURE GRANULOCYTE # (test code = IG#) 0.13 x10 3/uL 0-0.03 H LYMPHOCYTE # (test code = LY#) 1.16 K/mm3 1.0-5.0 N MONOCYTE # (test code = MO#) 0.80 K/mm3 0-0.8 N EOSINOPHIL # (test code = EO#) 0.04 K/mm3 0.0-0.5 N BASOPHIL # (test code = BA#) 0.04 K/mm3 0.0-0.2 N NUCLEATED RBC # (test code = NRBC#) 0.00 K/mm3 0.0-0.1 N MANUAL DIFF REQUIRED (test code = MDIFF) NO, ONLY SCAN NEEDED DIFFERENTIAL [id number] 20:28:00* Test Item Value Reference Range Interpretation Comments STAIN ACCEPTABILITY (test code = STN ACCEPTABLE) STAIN ACCEPTABLE POIKILOCYTOSIS (test code = POIK) 3+ ANISOCYTOSIS (test code = ANISO) 1+ CRENATED CELLS (test code = CREN) 2+ PLATELET ESTIMATE (test code = PLTEST) DECREASED PLATELET MORPHOLOGY (test code = PLTMORPH) NORMAL BASIC METABOLIC [id number] 18:29:00* Test Item Value Reference Range Interpretation Comments SODIUM (test code = NA) 142 mmol/L 136-145 N POTASSIUM (test code = K) 4.3 mmol/L 3.5-5.1 N CHLORIDE (test code = CL) 111.0 mmol/L 98-107 H CARBON DIOXIDE (test code = CO2) 21.0 mmol/L 21-32 N ANION GAP (test code = GAP) 14.3 10-20 N GLUCOSE (test code = GLU) 152 mg/dL 74-106 H BLOOD UREA NITROGEN (test code = BUN) 65 mg/dL 7-18 H GLOMERULAR FILTRATION RATE (test code = GFR) 17 mL/min >=60 Estimated GFR by using Modified MDRD formula.Chronic kidney disease is defined as either kidney damageor GFR <60 mL/min/1.73 m2 for >3 months. CREATININE (test code = CREAT) 2.90 mg/dL 0.55-1.02 H Note change in reference range due to change in reagent. BUN/CREATININE RATIO (test code = BUN/CREA) 22.4 10-20 H CALCIUM (test code = CA) 8.8 mg/dL 8.5-10.1 N BASIC METABOLIC [id number] 18:25:00* Test Item Value Reference Range Interpretation Comments SODIUM (test code = NA) 142 mmol/L 136-145 N POTASSIUM (test code = K) 4.3 mmol/L 3.5-5.1 N CHLORIDE (test code = CL) 111.0 mmol/L 98-107 H CARBON DIOXIDE (test code = CO2) mmol/L 21-32 ANION GAP (test code = GAP) 10-20 GLUCOSE (test code = GLU) mg/dL 74-106 BLOOD UREA NITROGEN (test code = BUN) mg/dL 7-18 GLOMERULAR FILTRATION RATE (test code = GFR) mL/min >=60 CREATININE (test code = CREAT) mg/dL 0.55-1.02 BUN/CREATININE RATIO (test code = BUN/CREA) 10-20 CALCIUM (test code = CA) mg/dL 8.5-10.1 CBC W/AUTO [id number] 18:14:00* Test Item Value Reference Range Interpretation Comments WHITE BLOOD CELL (test code = WBC) 11.6 K/mm3 4.5-12.5 N RED BLOOD CELL (test code = RBC) 3.35 mill/mm3 3.7-5.2 L HEMOGLOBIN (test code = HGB) 9.8 gram/dL 11.5-15.5 L HEMATOCRIT (test code = HCT) 31.7 % 36.0-46.0 L MEAN CELL VOLUME (test code = MCV) 94.6 fL 80-98 N MEAN CELL HGB (test code = MCH) 29.3 picogram 27.0-33.0 N MEAN CELL HGB CONCETRATION (test code = MCHC) 30.9 gram/dL 33.0-36. 0 L RED CELL DISTRIBUTION WIDTH (test code = RDW) 16.0 % 11.6-16. 2 N RED CELL DISTRIBUTION WIDTH SD (test code = RDW-SD) 55.4 fL 37 .0-51.0 H PLATELET COUNT (test code = PLT) 74 K/mm3 150-450 L MEAN PLATELET VOLUME (test code = MPV) 11.9 fL 6.7-11.0 H NEUTROPHIL % (test code = NT%) 81.4 % 39.0-69.0 H IMMATURE GRANULOCYTE % (test code = IG%) 1.1 % 0.0-5.0 N LYMPHOCYTE % (test code = LY%) 10.0 % 25.0-55.0 L MONOCYTE % (test code = MO%) 6.9 % 0.0-10.0 N EOSINOPHIL % (test code = EO%) 0.3 % 0.0-5.0 N BASOPHIL % (test code = BA%) 0.3 % 0.0-1.0 N NUCLEATED RBC % (test code = NRBC%) 0.0 % 0-0 N NEUTROPHIL # (test code = NT#) 9.42 K/mm3 1.8-7.7 H IMMATURE GRANULOCYTE # (test code = IG#) 0.13 x10 3/uL 0-0.03 H LYMPHOCYTE # (test code = LY#) 1.16 K/mm3 1.0-5.0 N MONOCYTE # (test code = MO#) 0.80 K/mm3 0-0.8 N EOSINOPHIL # (test code = EO#) 0.04 K/mm3 0.0-0.5 N BASOPHIL # (test code = BA#) 0.04 K/mm3 0.0-0.2 N NUCLEATED RBC # (test code = NRBC#) 0.00 K/mm3 0.0-0.1 N MANUAL DIFF REQUIRED (test code = MDIFF) NO, ONLY SCAN NEEDED DIFFERENTIAL [id number] 18:14:00* Test Item Value Reference Range Interpretation Comments STAIN ACCEPTABILITY (test code = STN ACCEPTABLE) CABOT RINGS (test code = CAB) MORPHOLOGY COMMENT (test code = MOC) PLATELET ESTIMATE (test code = PLTEST) PLATELET MORPHOLOGY (test code = PLTMORPH) CBC W/AUTO [id number] 18:14:00* Test Item Value Reference Range Interpretation Comments WHITE BLOOD CELL (test code = WBC) 11.6 K/mm3 4.5-12.5 N RED BLOOD CELL (test code = RBC) 3.35 mill/mm3 3.7-5.2 L HEMOGLOBIN (test code = HGB) 9.8 gram/dL 11.5-15.5 L HEMATOCRIT (test code = HCT) 31.7 % 36.0-46.0 L MEAN CELL VOLUME (test code = MCV) 94.6 fL 80-98 N MEAN CELL HGB (test code = MCH) 29.3 picogram 27.0-33.0 N MEAN CELL HGB CONCETRATION (test code = MCHC) 30.9 gram/dL 33.0-36. 0 L RED CELL DISTRIBUTION WIDTH (test code = RDW) 16.0 % 11.6-16. 2 N RED CELL DISTRIBUTION WIDTH SD (test code = RDW-SD) 55.4 fL 37 .0-51.0 H PLATELET COUNT (test code = PLT) 74 K/mm3 150-450 L MEAN PLATELET VOLUME (test code = MPV) 11.9 fL 6.7-11.0 H NEUTROPHIL % (test code = NT%) 81.4 % 39.0-69.0 H IMMATURE GRANULOCYTE % (test code = IG%) 1.1 % 0.0-5.0 N LYMPHOCYTE % (test code = LY%) 10.0 % 25.0-55.0 L MONOCYTE % (test code = MO%) 6.9 % 0.0-10.0 N EOSINOPHIL % (test code = EO%) 0.3 % 0.0-5.0 N BASOPHIL % (test code = BA%) 0.3 % 0.0-1.0 N NUCLEATED RBC % (test code = NRBC%) 0.0 % 0-0 N NEUTROPHIL # (test code = NT#) 9.42 K/mm3 1.8-7.7 H IMMATURE GRANULOCYTE # (test code = IG#) 0.13 x10 3/uL 0-0.03 H LYMPHOCYTE # (test code = LY#) 1.16 K/mm3 1.0-5.0 N MONOCYTE # (test code = MO#) 0.80 K/mm3 0-0.8 N EOSINOPHIL # (test code = EO#) 0.04 K/mm3 0.0-0.5 N BASOPHIL # (test code = BA#) 0.04 K/mm3 0.0-0.2 N NUCLEATED RBC # (test code = NRBC#) 0.00 K/mm3 0.0-0.1 N MANUAL DIFF REQUIRED (test code = MDIFF) NO, ONLY SCAN NEEDED DIFFERENTIAL [id number] 18:14:00* Test Item Value Reference Range Interpretation Comments STAIN ACCEPTABILITY (test code = STN ACCEPTABLE) CABOT RINGS (test code = CAB) MORPHOLOGY COMMENT (test code = MOC) PLATELET ESTIMATE (test code = PLTEST) PLATELET MORPHOLOGY (test code = PLTMORPH) CBC W/AUTO [id number] 18:14:00* Test Item Value Reference Range Interpretation Comments WHITE BLOOD CELL (test code = WBC) 11.6 K/mm3 4.5-12.5 N RED BLOOD CELL (test code = RBC) 3.35 mill/mm3 3.7-5.2 L HEMOGLOBIN (test code = HGB) 9.8 gram/dL 11.5-15.5 L HEMATOCRIT (test code = HCT) 31.7 % 36.0-46.0 L MEAN CELL VOLUME (test code = MCV) 94.6 fL 80-98 N MEAN CELL HGB (test code = MCH) 29.3 picogram 27.0-33.0 N MEAN CELL HGB CONCETRATION (test code = MCHC) 30.9 gram/dL 33.0-36. 0 L RED CELL DISTRIBUTION WIDTH (test code = RDW) 16.0 % 11.6-16. 2 N RED CELL DISTRIBUTION WIDTH SD (test code = RDW-SD) 55.4 fL 37 .0-51.0 H PLATELET COUNT (test code = PLT) 74 K/mm3 150-450 L MEAN PLATELET VOLUME (test code = MPV) 11.9 fL 6.7-11.0 H NEUTROPHIL % (test code = NT%) 81.4 % 39.0-69.0 H IMMATURE GRANULOCYTE % (test code = IG%) 1.1 % 0.0-5.0 N LYMPHOCYTE % (test code = LY%) 10.0 % 25.0-55.0 L MONOCYTE % (test code = MO%) 6.9 % 0.0-10.0 N EOSINOPHIL % (test code = EO%) 0.3 % 0.0-5.0 N BASOPHIL % (test code = BA%) 0.3 % 0.0-1.0 N NUCLEATED RBC % (test code = NRBC%) 0.0 % 0-0 N NEUTROPHIL # (test code = NT#) 9.42 K/mm3 1.8-7.7 H IMMATURE GRANULOCYTE # (test code = IG#) 0.13 x10 3/uL 0-0.03 H LYMPHOCYTE # (test code = LY#) 1.16 K/mm3 1.0-5.0 N MONOCYTE # (test code = MO#) 0.80 K/mm3 0-0.8 N EOSINOPHIL # (test code = EO#) 0.04 K/mm3 0.0-0.5 N BASOPHIL # (test code = BA#) 0.04 K/mm3 0.0-0.2 N NUCLEATED RBC # (test code = NRBC#) 0.00 K/mm3 0.0-0.1 N MANUAL DIFF REQUIRED (test code = MDIFF) NO, ONLY SCAN NEEDED DIFFERENTIAL [id number] 18:14:00* Test Item Value Reference Range Interpretation Comments STAIN ACCEPTABILITY (test code = STN ACCEPTABLE) MORPHOLOGY COMMENT (test code = MOC) PLATELET ESTIMATE (test code = PLTEST) PLATELET MORPHOLOGY (test code = PLTMORPH) CBC W/AUTO [id number] 18:14:00* Test Item Value Reference Range Interpretation Comments WHITE BLOOD CELL (test code = WBC) 11.6 K/mm3 4.5-12.5 N RED BLOOD CELL (test code = RBC) 3.35 mill/mm3 3.7-5.2 L HEMOGLOBIN (test code = HGB) 9.8 gram/dL 11.5-15.5 L HEMATOCRIT (test code = HCT) 31.7 % 36.0-46.0 L MEAN CELL VOLUME (test code = MCV) 94.6 fL 80-98 N MEAN CELL HGB (test code = MCH) 29.3 picogram 27.0-33.0 N MEAN CELL HGB CONCETRATION (test code = MCHC) 30.9 gram/dL 33.0-36. 0 L RED CELL DISTRIBUTION WIDTH (test code = RDW) 16.0 % 11.6-16. 2 N RED CELL DISTRIBUTION WIDTH SD (test code = RDW-SD) 55.4 fL 37 .0-51.0 H PLATELET COUNT (test code = PLT) 74 K/mm3 150-450 L MEAN PLATELET VOLUME (test code = MPV) 11.9 fL 6.7-11.0 H NEUTROPHIL % (test code = NT%) 81.4 % 39.0-69.0 H IMMATURE GRANULOCYTE % (test code = IG%) 1.1 % 0.0-5.0 N LYMPHOCYTE % (test code = LY%) 10.0 % 25.0-55.0 L MONOCYTE % (test code = MO%) 6.9 % 0.0-10.0 N EOSINOPHIL % (test code = EO%) 0.3 % 0.0-5.0 N BASOPHIL % (test code = BA%) 0.3 % 0.0-1.0 N NUCLEATED RBC % (test code = NRBC%) 0.0 % 0-0 N NEUTROPHIL # (test code = NT#) 9.42 K/mm3 1.8-7.7 H IMMATURE GRANULOCYTE # (test code = IG#) 0.13 x10 3/uL 0-0.03 H LYMPHOCYTE # (test code = LY#) 1.16 K/mm3 1.0-5.0 N MONOCYTE # (test code = MO#) 0.80 K/mm3 0-0.8 N EOSINOPHIL # (test code = EO#) 0.04 K/mm3 0.0-0.5 N BASOPHIL # (test code = BA#) 0.04 K/mm3 0.0-0.2 N NUCLEATED RBC # (test code = NRBC#) 0.00 K/mm3 0.0-0.1 N MANUAL DIFF REQUIRED (test code = MDIFF) NO, ONLY SCAN NEEDED DIFFERENTIAL [id number] 18:14:00* Test Item Value Reference Range Interpretation Comments STAIN ACCEPTABILITY (test code = STN ACCEPTABLE) CABOT RINGS (test code = CAB) MORPHOLOGY COMMENT (test code = MOC) PLATELET ESTIMATE (test code = PLTEST) PLATELET MORPHOLOGY (test code = PLTMORPH) [id number] 18:14:00* Test Item Value Reference Range Interpretation Comments VANCOMYCIN (test code = VANCO) 15.7 UG/ML 5.0-45.0 N CBC W/AUTO [id number] 12:15:00* Test Item Value Reference Range Interpretation Comments WHITE BLOOD CELL (test code = WBC) 5.1 K/mm3 4.5-12.5 N RED BLOOD CELL (test code = RBC) 2.91 mill/mm3 3.7-5.2 L HEMOGLOBIN (test code = HGB) 8.4 gram/dL 11.5-15.5 L HEMATOCRIT (test code = HCT) 28.4 % 36.0-46.0 L MEAN CELL VOLUME (test code = MCV) 97.6 fL 80-98 N MEAN CELL HGB (test code = MCH) 28.9 picogram 27.0-33.0 N MEAN CELL HGB CONCETRATION (test code = MCHC) 29.6 gram/dL 33.0-36. 0 L RED CELL DISTRIBUTION WIDTH (test code = RDW) 17.6 % 11.6-16. 2 H RED CELL DISTRIBUTION WIDTH SD (test code = RDW-SD) 63.2 fL 37 .0-51.0 H PLATELET COUNT (test code = PLT) 88 K/mm3 150-450 L MEAN PLATELET VOLUME (test code = MPV) 11.7 fL 6.7-11.0 H NEUTROPHIL % (test code = NT%) 67.2 % 39.0-69.0 N IMMATURE GRANULOCYTE % (test code = IG%) 0.6 % 0.0-5.0 N LYMPHOCYTE % (test code = LY%) 20.7 % 25.0-55.0 L MONOCYTE % (test code = MO%) 8.5 % 0.0-10.0 N EOSINOPHIL % (test code = EO%) 2.4 % 0.0-5.0 N BASOPHIL % (test code = BA%) 0.6 % 0.0-1.0 N NUCLEATED RBC % (test code = NRBC%) 0.0 % 0-0 N NEUTROPHIL # (test code = NT#) 3.41 K/mm3 1.8-7.7 N IMMATURE GRANULOCYTE # (test code = IG#) 0.03 x10 3/uL 0-0.03 N LYMPHOCYTE # (test code = LY#) 1.05 K/mm3 1.0-5.0 N MONOCYTE # (test code = MO#) 0.43 K/mm3 0-0.8 N EOSINOPHIL # (test code = EO#) 0.12 K/mm3 0.0-0.5 N BASOPHIL # (test code = BA#) 0.03 K/mm3 0.0-0.2 N NUCLEATED RBC # (test code = NRBC#) 0.00 K/mm3 0.0-0.1 N MANUAL DIFF REQUIRED (test code = MDIFF) NO, ONLY SCAN NEEDED DIFFERENTIAL [id number] 12:15:00* Test Item Value Reference Range Interpretation Comments STAIN ACCEPTABILITY (test code = STN ACCEPTABLE) STAIN ACCEPTABLE ANISOCYTOSIS (test code = ANISO) 1+ PLATELET ESTIMATE (test code = PLTEST) DECREASED PLATELET MORPHOLOGY (test code = PLTMORPH) NORMAL BASIC METABOLIC [id number] 12:07:00* Test Item Value Reference Range Interpretation Comments SODIUM (test code = NA) 144 mmol/L 136-145 N POTASSIUM (test code = K) 4.6 mmol/L 3.5-5.1 N CHLORIDE (test code = CL) 114.0 mmol/L 98-107 H CARBON DIOXIDE (test code = CO2) 22.0 mmol/L 21-32 N ANION GAP (test code = GAP) 12.6 10-20 N GLUCOSE (test code = GLU) 64 mg/dL 74-106 L BLOOD UREA NITROGEN (test code = BUN) 57 mg/dL 7-18 H GLOMERULAR FILTRATION RATE (test code = GFR) 23 mL/min >=60 Estimated GFR by using Modified MDRD formula.Chronic kidney disease is defined as either kidney damageor GFR <60 mL/min/1.73 m2 for >3 months. CREATININE (test code = CREAT) 2.20 mg/dL 0.55-1.02 H Note change in reference range due to change in reagent. BUN/CREATININE RATIO (test code = BUN/CREA) 25.4 10-20 H CALCIUM (test code = CA) 8.9 mg/dL 8.5-10.1 N BASIC METABOLIC [id number] 11:57:00* Test Item Value Reference Range Interpretation Comments SODIUM (test code = NA) 144 mmol/L 136-145 N POTASSIUM (test code = K) 4.6 mmol/L 3.5-5.1 N CHLORIDE (test code = CL) 114.0 mmol/L 98-107 H CARBON DIOXIDE (test code = CO2) mmol/L 21-32 ANION GAP (test code = GAP) 10-20 GLUCOSE (test code = GLU) mg/dL 74-106 BLOOD UREA NITROGEN (test code = BUN) mg/dL 7-18 GLOMERULAR FILTRATION RATE (test code = GFR) mL/min >=60 CREATININE (test code = CREAT) mg/dL 0.55-1.02 BUN/CREATININE RATIO (test code = BUN/CREA) 10-20 CALCIUM (test code = CA) mg/dL 8.5-10.1 PROTHROMBIN [id number] 11:44:00* Test Item Value Reference Range Interpretation Comments PROTHROMBIN TIME PATIENT (test code = PTP) 12.6 seconds 9.0-14.0 N INTERNATIONAL NORMAL RATIO (test code = INR) 1.1 0.8-1.2 N The therapeutic range for oral anticoagulant therapy [...] (2.5-3.5) IS PATIENT ON ANTICOAGULANTS? NTHROMBOPLASTIN TIME [id number] 11:44:00* Test Item Value Reference Range Interpretation Comments THROMBOPLASTIN TIME PARTIAL (test code = PTT) 35.4 seconds 25.0-36. 5 N IS PATIENT ON ANTICOAGULANTS? NCBC W/AUTO [id number] 11:28:00* Test Item Value Reference Range Interpretation Comments WHITE BLOOD CELL (test code = WBC) 5.1 K/mm3 4.5-12.5 N RED BLOOD CELL (test code = RBC) 2.91 mill/mm3 3.7-5.2 L HEMOGLOBIN (test code = HGB) 8.4 gram/dL 11.5-15.5 L HEMATOCRIT (test code = HCT) 28.4 % 36.0-46.0 L MEAN CELL VOLUME (test code = MCV) 97.6 fL 80-98 N MEAN CELL HGB (test code = MCH) 28.9 picogram 27.0-33.0 N MEAN CELL HGB CONCETRATION (test code = MCHC) 29.6 gram/dL 33.0-36. 0 L RED CELL DISTRIBUTION WIDTH (test code = RDW) 17.6 % 11.6-16. 2 H RED CELL DISTRIBUTION WIDTH SD (test code = RDW-SD) 63.2 fL 37 .0-51.0 H PLATELET COUNT (test code = PLT) 88 K/mm3 150-450 L MEAN PLATELET VOLUME (test code = MPV) 11.7 fL 6.7-11.0 H NEUTROPHIL % (test code = NT%) 67.2 % 39.0-69.0 N IMMATURE GRANULOCYTE % (test code = IG%) 0.6 % 0.0-5.0 N LYMPHOCYTE % (test code = LY%) 20.7 % 25.0-55.0 L MONOCYTE % (test code = MO%) 8.5 % 0.0-10.0 N EOSINOPHIL % (test code = EO%) 2.4 % 0.0-5.0 N BASOPHIL % (test code = BA%) 0.6 % 0.0-1.0 N NUCLEATED RBC % (test code = NRBC%) 0.0 % 0-0 N NEUTROPHIL # (test code = NT#) 3.41 K/mm3 1.8-7.7 N IMMATURE GRANULOCYTE # (test code = IG#) 0.03 x10 3/uL 0-0.03 N LYMPHOCYTE # (test code = LY#) 1.05 K/mm3 1.0-5.0 N MONOCYTE # (test code = MO#) 0.43 K/mm3 0-0.8 N EOSINOPHIL # (test code = EO#) 0.12 K/mm3 0.0-0.5 N BASOPHIL # (test code = BA#) 0.03 K/mm3 0.0-0.2 N NUCLEATED RBC # (test code = NRBC#) 0.00 K/mm3 0.0-0.1 N MANUAL DIFF REQUIRED (test code = MDIFF) NO, ONLY SCAN NEEDED DIFFERENTIAL [id number] 11:28:00* Test Item Value Reference Range Interpretation Comments STAIN ACCEPTABILITY (test code = STN ACCEPTABLE) CABOT RINGS (test code = CAB) MORPHOLOGY COMMENT (test code = MOC) PLATELET ESTIMATE (test code = PLTEST) PLATELET MORPHOLOGY (test code = PLTMORPH) CBC W/AUTO [id number] 11:28:00* Test Item Value Reference Range Interpretation Comments WHITE BLOOD CELL (test code = WBC) 5.1 K/mm3 4.5-12.5 N RED BLOOD CELL (test code = RBC) 2.91 mill/mm3 3.7-5.2 L HEMOGLOBIN (test code = HGB) 8.4 gram/dL 11.5-15.5 L HEMATOCRIT (test code = HCT) 28.4 % 36.0-46.0 L MEAN CELL VOLUME (test code = MCV) 97.6 fL 80-98 N MEAN CELL HGB (test code = MCH) 28.9 picogram 27.0-33.0 N MEAN CELL HGB CONCETRATION (test code = MCHC) 29.6 gram/dL 33.0-36. 0 L RED CELL DISTRIBUTION WIDTH (test code = RDW) 17.6 % 11.6-16. 2 H RED CELL DISTRIBUTION WIDTH SD (test code = RDW-SD) 63.2 fL 37 .0-51.0 H PLATELET COUNT (test code = PLT) 88 K/mm3 150-450 L MEAN PLATELET VOLUME (test code = MPV) 11.7 fL 6.7-11.0 H NEUTROPHIL % (test code = NT%) 67.2 % 39.0-69.0 N IMMATURE GRANULOCYTE % (test code = IG%) 0.6 % 0.0-5.0 N LYMPHOCYTE % (test code = LY%) 20.7 % 25.0-55.0 L MONOCYTE % (test code = MO%) 8.5 % 0.0-10.0 N EOSINOPHIL % (test code = EO%) 2.4 % 0.0-5.0 N BASOPHIL % (test code = BA%) 0.6 % 0.0-1.0 N NUCLEATED RBC % (test code = NRBC%) 0.0 % 0-0 N NEUTROPHIL # (test code = NT#) 3.41 K/mm3 1.8-7.7 N IMMATURE GRANULOCYTE # (test code = IG#) 0.03 x10 3/uL 0-0.03 N LYMPHOCYTE # (test code = LY#) 1.05 K/mm3 1.0-5.0 N MONOCYTE # (test code = MO#) 0.43 K/mm3 0-0.8 N EOSINOPHIL # (test code = EO#) 0.12 K/mm3 0.0-0.5 N BASOPHIL # (test code = BA#) 0.03 K/mm3 0.0-0.2 N NUCLEATED RBC # (test code = NRBC#) 0.00 K/mm3 0.0-0.1 N MANUAL DIFF REQUIRED (test code = MDIFF) NO, ONLY SCAN NEEDED DIFFERENTIAL [id number] 11:28:00* Test Item Value Reference Range Interpretation Comments STAIN ACCEPTABILITY (test code = STN ACCEPTABLE) CABOT RINGS (test code = CAB) MORPHOLOGY COMMENT (test code = MOC) PLATELET ESTIMATE (test code = PLTEST) PLATELET MORPHOLOGY (test code = PLTMORPH) CBC W/AUTO [id number] 11:28:00* Test Item Value Reference Range Interpretation Comments WHITE BLOOD CELL (test code = WBC) 5.1 K/mm3 4.5-12.5 N RED BLOOD CELL (test code = RBC) 2.91 mill/mm3 3.7-5.2 L HEMOGLOBIN (test code = HGB) 8.4 gram/dL 11.5-15.5 L HEMATOCRIT (test code = HCT) 28.4 % 36.0-46.0 L MEAN CELL VOLUME (test code = MCV) 97.6 fL 80-98 N MEAN CELL HGB (test code = MCH) 28.9 picogram 27.0-33.0 N MEAN CELL HGB CONCETRATION (test code = MCHC) 29.6 gram/dL 33.0-36. 0 L RED CELL DISTRIBUTION WIDTH (test code = RDW) 17.6 % 11.6-16. 2 H RED CELL DISTRIBUTION WIDTH SD (test code = RDW-SD) 63.2 fL 37 .0-51.0 H PLATELET COUNT (test code = PLT) 88 K/mm3 150-450 L MEAN PLATELET VOLUME (test code = MPV) 11.7 fL 6.7-11.0 H NEUTROPHIL % (test code = NT%) 67.2 % 39.0-69.0 N IMMATURE GRANULOCYTE % (test code = IG%) 0.6 % 0.0-5.0 N LYMPHOCYTE % (test code = LY%) 20.7 % 25.0-55.0 L MONOCYTE % (test code = MO%) 8.5 % 0.0-10.0 N EOSINOPHIL % (test code = EO%) 2.4 % 0.0-5.0 N BASOPHIL % (test code = BA%) 0.6 % 0.0-1.0 N NUCLEATED RBC % (test code = NRBC%) 0.0 % 0-0 N NEUTROPHIL # (test code = NT#) 3.41 K/mm3 1.8-7.7 N IMMATURE GRANULOCYTE # (test code = IG#) 0.03 x10 3/uL 0-0.03 N LYMPHOCYTE # (test code = LY#) 1.05 K/mm3 1.0-5.0 N MONOCYTE # (test code = MO#) 0.43 K/mm3 0-0.8 N EOSINOPHIL # (test code = EO#) 0.12 K/mm3 0.0-0.5 N BASOPHIL # (test code = BA#) 0.03 K/mm3 0.0-0.2 N NUCLEATED RBC # (test code = NRBC#) 0.00 K/mm3 0.0-0.1 N MANUAL DIFF REQUIRED (test code = MDIFF) NO, ONLY SCAN NEEDED DIFFERENTIAL [id number] 11:28:00* Test Item Value Reference Range Interpretation Comments STAIN ACCEPTABILITY (test code = STN ACCEPTABLE) MORPHOLOGY COMMENT (test code = MOC) PLATELET ESTIMATE (test code = PLTEST) PLATELET MORPHOLOGY (test code = PLTMORPH) CBC W/AUTO [id number] 11:27:00* Test Item Value Reference Range Interpretation Comments WHITE BLOOD CELL (test code = WBC) 5.1 K/mm3 4.5-12.5 N RED BLOOD CELL (test code = RBC) 2.91 mill/mm3 3.7-5.2 L HEMOGLOBIN (test code = HGB) 8.4 gram/dL 11.5-15.5 L HEMATOCRIT (test code = HCT) 28.4 % 36.0-46.0 L MEAN CELL VOLUME (test code = MCV) 97.6 fL 80-98 N MEAN CELL HGB (test code = MCH) 28.9 picogram 27.0-33.0 N MEAN CELL HGB CONCETRATION (test code = MCHC) 29.6 gram/dL 33.0-36. 0 L RED CELL DISTRIBUTION WIDTH (test code = RDW) 17.6 % 11.6-16. 2 H RED CELL DISTRIBUTION WIDTH SD (test code = RDW-SD) 63.2 fL 37 .0-51.0 H PLATELET COUNT (test code = PLT) 88 K/mm3 150-450 L MEAN PLATELET VOLUME (test code = MPV) 11.7 fL 6.7-11.0 H NEUTROPHIL % (test code = NT%) 67.2 % 39.0-69.0 N IMMATURE GRANULOCYTE % (test code = IG%) 0.6 % 0.0-5.0 N LYMPHOCYTE % (test code = LY%) 20.7 % 25.0-55.0 L MONOCYTE % (test code = MO%) 8.5 % 0.0-10.0 N EOSINOPHIL % (test code = EO%) 2.4 % 0.0-5.0 N BASOPHIL % (test code = BA%) 0.6 % 0.0-1.0 N NUCLEATED RBC % (test code = NRBC%) 0.0 % 0-0 N NEUTROPHIL # (test code = NT#) 3.41 K/mm3 1.8-7.7 N IMMATURE GRANULOCYTE # (test code = IG#) 0.03 x10 3/uL 0-0.03 N LYMPHOCYTE # (test code = LY#) 1.05 K/mm3 1.0-5.0 N MONOCYTE # (test code = MO#) 0.43 K/mm3 0-0.8 N EOSINOPHIL # (test code = EO#) 0.12 K/mm3 0.0-0.5 N BASOPHIL # (test code = BA#) 0.03 K/mm3 0.0-0.2 N NUCLEATED RBC # (test code = NRBC#) 0.00 K/mm3 0.0-0.1 N MANUAL DIFF REQUIRED (test code = MDIFF) NO, ONLY SCAN NEEDED DIFFERENTIAL [id number] 11:27:00* Test Item Value Reference Range Interpretation Comments STAIN ACCEPTABILITY (test code = STN ACCEPTABLE) CABOT RINGS (test code = CAB) MORPHOLOGY COMMENT (test code = MOC) PLATELET ESTIMATE (test code = PLTEST) PLATELET MORPHOLOGY (test code = PLTMORPH) CBC W/AUTO [id number] 09:27:00* Test Item Value Reference Range Interpretation Comments WHITE BLOOD CELL (test code = WBC) 6.7 K/mm3 4.5-12.5 N RED BLOOD CELL (test code = RBC) 2.87 mill/mm3 3.7-5.2 L HEMOGLOBIN (test code = HGB) 8.4 gram/dL 11.5-15.5 L HEMATOCRIT (test code = HCT) 27.3 % 36.0-46.0 L MEAN CELL VOLUME (test code = MCV) 95.1 fL 80-98 N MEAN CELL HGB (test code = MCH) 29.3 picogram 27.0-33.0 N MEAN CELL HGB CONCETRATION (test code = MCHC) 30.8 gram/dL 33.0-36. 0 L RED CELL DISTRIBUTION WIDTH (test code = RDW) 17.8 % 11.6-16. 2 H RED CELL DISTRIBUTION WIDTH SD (test code = RDW-SD) 62.2 fL 37 .0-51.0 H PLATELET COUNT (test code = PLT) 84 K/mm3 150-450 L MEAN PLATELET VOLUME (test code = MPV) 12.0 fL 6.7-11.0 H NEUTROPHIL % (test code = NT%) 76.4 % 39.0-69.0 H IMMATURE GRANULOCYTE % (test code = IG%) 0.3 % 0.0-5.0 N LYMPHOCYTE % (test code = LY%) 12.4 % 25.0-55.0 L MONOCYTE % (test code = MO%) 9.7 % 0.0-10.0 N EOSINOPHIL % (test code = EO%) 0.9 % 0.0-5.0 N BASOPHIL % (test code = BA%) 0.3 % 0.0-1.0 N NUCLEATED RBC % (test code = NRBC%) 0.0 % 0-0 N NEUTROPHIL # (test code = NT#) 5.11 K/mm3 1.8-7.7 N IMMATURE GRANULOCYTE # (test code = IG#) 0.02 x10 3/uL 0-0.03 N LYMPHOCYTE # (test code = LY#) 0.83 K/mm3 1.0-5.0 L MONOCYTE # (test code = MO#) 0.65 K/mm3 0-0.8 N EOSINOPHIL # (test code = EO#) 0.06 K/mm3 0.0-0.5 N BASOPHIL # (test code = BA#) 0.02 K/mm3 0.0-0.2 N NUCLEATED RBC # (test code = NRBC#) 0.00 K/mm3 0.0-0.1 N MANUAL DIFF REQUIRED (test code = MDIFF) NO, ONLY SCAN NEEDED DIFFERENTIAL [id number] 09:27:00* Test Item Value Reference Range Interpretation Comments STAIN ACCEPTABILITY (test code = STN ACCEPTABLE) STAIN ACCEPTABLE POLYCHROMASIA (test code = POLC) 1+ POIKILOCYTOSIS (test code = POIK) 1+ ANISOCYTOSIS (test code = ANISO) 2+ PLATELET ESTIMATE (test code = PLTEST) DECREASED PLATELET MORPHOLOGY (test code = PLTMORPH) NORMAL BASIC METABOLIC [id number] 07:29:00* Test Item Value Reference Range Interpretation Comments SODIUM (test code = NA) 145 mmol/L 136-145 N POTASSIUM (test code = K) 3.8 mmol/L 3.5-5.1 N CHLORIDE (test code = CL) 116.0 mmol/L 98-107 H CARBON DIOXIDE (test code = CO2) 19.0 mmol/L 21-32 L ANION GAP (test code = GAP) 13.8 10-20 N GLUCOSE (test code = GLU) 95 mg/dL 74-106 N BLOOD UREA NITROGEN (test code = BUN) 51 mg/dL 7-18 H GLOMERULAR FILTRATION RATE (test code = GFR) 20 mL/min >=60 Estimated GFR by using Modified MDRD formula.Chronic kidney disease is defined as either kidney damageor GFR <60 mL/min/1.73 m2 for >3 months. CREATININE (test code = CREAT) 2.50 mg/dL 0.55-1.02 H Note change in reference range due to change in reagent. BUN/CREATININE RATIO (test code = BUN/CREA) 20.1 10-20 H CALCIUM (test code = CA) 8.6 mg/dL 8.5-10.1 N CBC W/AUTO [id number] 07:25:00* Test Item Value Reference Range Interpretation Comments WHITE BLOOD CELL (test code = WBC) 6.7 K/mm3 4.5-12.5 N RED BLOOD CELL (test code = RBC) 2.87 mill/mm3 3.7-5.2 L HEMOGLOBIN (test code = HGB) 8.4 gram/dL 11.5-15.5 L HEMATOCRIT (test code = HCT) 27.3 % 36.0-46.0 L MEAN CELL VOLUME (test code = MCV) 95.1 fL 80-98 N MEAN CELL HGB (test code = MCH) 29.3 picogram 27.0-33.0 N MEAN CELL HGB CONCETRATION (test code = MCHC) 30.8 gram/dL 33.0-36. 0 L RED CELL DISTRIBUTION WIDTH (test code = RDW) 17.8 % 11.6-16. 2 H RED CELL DISTRIBUTION WIDTH SD (test code = RDW-SD) 62.2 fL 37 .0-51.0 H PLATELET COUNT (test code = PLT) 84 K/mm3 150-450 L MEAN PLATELET VOLUME (test code = MPV) 12.0 fL 6.7-11.0 H NEUTROPHIL % (test code = NT%) 76.4 % 39.0-69.0 H IMMATURE GRANULOCYTE % (test code = IG%) 0.3 % 0.0-5.0 N LYMPHOCYTE % (test code = LY%) 12.4 % 25.0-55.0 L MONOCYTE % (test code = MO%) 9.7 % 0.0-10.0 N EOSINOPHIL % (test code = EO%) 0.9 % 0.0-5.0 N BASOPHIL % (test code = BA%) 0.3 % 0.0-1.0 N NUCLEATED RBC % (test code = NRBC%) 0.0 % 0-0 N NEUTROPHIL # (test code = NT#) 5.11 K/mm3 1.8-7.7 N IMMATURE GRANULOCYTE # (test code = IG#) 0.02 x10 3/uL 0-0.03 N LYMPHOCYTE # (test code = LY#) 0.83 K/mm3 1.0-5.0 L MONOCYTE # (test code = MO#) 0.65 K/mm3 0-0.8 N EOSINOPHIL # (test code = EO#) 0.06 K/mm3 0.0-0.5 N BASOPHIL # (test code = BA#) 0.02 K/mm3 0.0-0.2 N NUCLEATED RBC # (test code = NRBC#) 0.00 K/mm3 0.0-0.1 N MANUAL DIFF REQUIRED (test code = MDIFF) NO, ONLY SCAN NEEDED DIFFERENTIAL [id number] 07:25:00* Test Item Value Reference Range Interpretation Comments STAIN ACCEPTABILITY (test code = STN ACCEPTABLE) CABOT RINGS (test code = CAB) MORPHOLOGY COMMENT (test code = MOC) PLATELET ESTIMATE (test code = PLTEST) PLATELET MORPHOLOGY (test code = PLTMORPH) CBC W/AUTO [id number] 07:25:00* Test Item Value Reference Range Interpretation Comments WHITE BLOOD CELL (test code = WBC) 6.7 K/mm3 4.5-12.5 N RED BLOOD CELL (test code = RBC) 2.87 mill/mm3 3.7-5.2 L HEMOGLOBIN (test code = HGB) 8.4 gram/dL 11.5-15.5 L HEMATOCRIT (test code = HCT) 27.3 % 36.0-46.0 L MEAN CELL VOLUME (test code = MCV) 95.1 fL 80-98 N MEAN CELL HGB (test code = MCH) 29.3 picogram 27.0-33.0 N MEAN CELL HGB CONCETRATION (test code = MCHC) 30.8 gram/dL 33.0-36. 0 L RED CELL DISTRIBUTION WIDTH (test code = RDW) 17.8 % 11.6-16. 2 H RED CELL DISTRIBUTION WIDTH SD (test code = RDW-SD) 62.2 fL 37 .0-51.0 H PLATELET COUNT (test code = PLT) 84 K/mm3 150-450 L MEAN PLATELET VOLUME (test code = MPV) 12.0 fL 6.7-11.0 H NEUTROPHIL % (test code = NT%) 76.4 % 39.0-69.0 H IMMATURE GRANULOCYTE % (test code = IG%) 0.3 % 0.0-5.0 N LYMPHOCYTE % (test code = LY%) 12.4 % 25.0-55.0 L MONOCYTE % (test code = MO%) 9.7 % 0.0-10.0 N EOSINOPHIL % (test code = EO%) 0.9 % 0.0-5.0 N BASOPHIL % (test code = BA%) 0.3 % 0.0-1.0 N NUCLEATED RBC % (test code = NRBC%) 0.0 % 0-0 N NEUTROPHIL # (test code = NT#) 5.11 K/mm3 1.8-7.7 N IMMATURE GRANULOCYTE # (test code = IG#) 0.02 x10 3/uL 0-0.03 N LYMPHOCYTE # (test code = LY#) 0.83 K/mm3 1.0-5.0 L MONOCYTE # (test code = MO#) 0.65 K/mm3 0-0.8 N EOSINOPHIL # (test code = EO#) 0.06 K/mm3 0.0-0.5 N BASOPHIL # (test code = BA#) 0.02 K/mm3 0.0-0.2 N NUCLEATED RBC # (test code = NRBC#) 0.00 K/mm3 0.0-0.1 N MANUAL DIFF REQUIRED (test code = MDIFF) NO, ONLY SCAN NEEDED DIFFERENTIAL [id number] 07:25:00* Test Item Value Reference Range Interpretation Comments STAIN ACCEPTABILITY (test code = STN ACCEPTABLE) MORPHOLOGY COMMENT (test code = MOC) PLATELET ESTIMATE (test code = PLTEST) PLATELET MORPHOLOGY (test code = PLTMORPH) CBC W/AUTO [id number] 07:24:00* Test Item Value Reference Range Interpretation Comments WHITE BLOOD CELL (test code = WBC) 6.7 K/mm3 4.5-12.5 N RED BLOOD CELL (test code = RBC) 2.87 mill/mm3 3.7-5.2 L HEMOGLOBIN (test code = HGB) 8.4 gram/dL 11.5-15.5 L HEMATOCRIT (test code = HCT) 27.3 % 36.0-46.0 L MEAN CELL VOLUME (test code = MCV) 95.1 fL 80-98 N MEAN CELL HGB (test code = MCH) 29.3 picogram 27.0-33.0 N MEAN CELL HGB CONCETRATION (test code = MCHC) 30.8 gram/dL 33.0-36. 0 L RED CELL DISTRIBUTION WIDTH (test code = RDW) 17.8 % 11.6-16. 2 H RED CELL DISTRIBUTION WIDTH SD (test code = RDW-SD) 62.2 fL 37 .0-51.0 H PLATELET COUNT (test code = PLT) 84 K/mm3 150-450 L MEAN PLATELET VOLUME (test code = MPV) 12.0 fL 6.7-11.0 H NEUTROPHIL % (test code = NT%) 76.4 % 39.0-69.0 H IMMATURE GRANULOCYTE % (test code = IG%) 0.3 % 0.0-5.0 N LYMPHOCYTE % (test code = LY%) 12.4 % 25.0-55.0 L MONOCYTE % (test code = MO%) 9.7 % 0.0-10.0 N EOSINOPHIL % (test code = EO%) 0.9 % 0.0-5.0 N BASOPHIL % (test code = BA%) 0.3 % 0.0-1.0 N NUCLEATED RBC % (test code = NRBC%) 0.0 % 0-0 N NEUTROPHIL # (test code = NT#) 5.11 K/mm3 1.8-7.7 N IMMATURE GRANULOCYTE # (test code = IG#) 0.02 x10 3/uL 0-0.03 N LYMPHOCYTE # (test code = LY#) 0.83 K/mm3 1.0-5.0 L MONOCYTE # (test code = MO#) 0.65 K/mm3 0-0.8 N EOSINOPHIL # (test code = EO#) 0.06 K/mm3 0.0-0.5 N BASOPHIL # (test code = BA#) 0.02 K/mm3 0.0-0.2 N NUCLEATED RBC # (test code = NRBC#) 0.00 K/mm3 0.0-0.1 N MANUAL DIFF REQUIRED (test code = MDIFF) NO, ONLY SCAN NEEDED DIFFERENTIAL [id number] 07:24:00* Test Item Value Reference Range Interpretation Comments STAIN ACCEPTABILITY (test code = STN ACCEPTABLE) CABOT RINGS (test code = CAB) MORPHOLOGY COMMENT (test code = MOC) PLATELET ESTIMATE (test code = PLTEST) PLATELET MORPHOLOGY (test code = PLTMORPH) CBC W/AUTO [id number] 07:24:00* Test Item Value Reference Range Interpretation Comments WHITE BLOOD CELL (test code = WBC) 6.7 K/mm3 4.5-12.5 N RED BLOOD CELL (test code = RBC) 2.87 mill/mm3 3.7-5.2 L HEMOGLOBIN (test code = HGB) 8.4 gram/dL 11.5-15.5 L HEMATOCRIT (test code = HCT) 27.3 % 36.0-46.0 L MEAN CELL VOLUME (test code = MCV) 95.1 fL 80-98 N MEAN CELL HGB (test code = MCH) 29.3 picogram 27.0-33.0 N MEAN CELL HGB CONCETRATION (test code = MCHC) 30.8 gram/dL 33.0-36. 0 L RED CELL DISTRIBUTION WIDTH (test code = RDW) 17.8 % 11.6-16. 2 H RED CELL DISTRIBUTION WIDTH SD (test code = RDW-SD) 62.2 fL 37 .0-51.0 H PLATELET COUNT (test code = PLT) 84 K/mm3 150-450 L MEAN PLATELET VOLUME (test code = MPV) 12.0 fL 6.7-11.0 H NEUTROPHIL % (test code = NT%) 76.4 % 39.0-69.0 H IMMATURE GRANULOCYTE % (test code = IG%) 0.3 % 0.0-5.0 N LYMPHOCYTE % (test code = LY%) 12.4 % 25.0-55.0 L MONOCYTE % (test code = MO%) 9.7 % 0.0-10.0 N EOSINOPHIL % (test code = EO%) 0.9 % 0.0-5.0 N BASOPHIL % (test code = BA%) 0.3 % 0.0-1.0 N NUCLEATED RBC % (test code = NRBC%) 0.0 % 0-0 N NEUTROPHIL # (test code = NT#) 5.11 K/mm3 1.8-7.7 N IMMATURE GRANULOCYTE # (test code = IG#) 0.02 x10 3/uL 0-0.03 N LYMPHOCYTE # (test code = LY#) 0.83 K/mm3 1.0-5.0 L MONOCYTE # (test code = MO#) 0.65 K/mm3 0-0.8 N EOSINOPHIL # (test code = EO#) 0.06 K/mm3 0.0-0.5 N BASOPHIL # (test code = BA#) 0.02 K/mm3 0.0-0.2 N NUCLEATED RBC # (test code = NRBC#) 0.00 K/mm3 0.0-0.1 N MANUAL DIFF REQUIRED (test code = MDIFF) NO, ONLY SCAN NEEDED DIFFERENTIAL [id number] 07:24:00* Test Item Value Reference Range Interpretation Comments STAIN ACCEPTABILITY (test code = STN ACCEPTABLE) CABOT RINGS (test code = CAB) MORPHOLOGY COMMENT (test code = MOC) PLATELET ESTIMATE (test code = PLTEST) PLATELET MORPHOLOGY (test code = PLTMORPH) BASIC METABOLIC [id number] 07:22:00* Test Item Value Reference Range Interpretation Comments SODIUM (test code = NA) 145 mmol/L 136-145 N POTASSIUM (test code = K) 3.8 mmol/L 3.5-5.1 N CHLORIDE (test code = CL) 116.0 mmol/L 98-107 H CARBON DIOXIDE (test code = CO2) mmol/L 21-32 ANION GAP (test code = GAP) 10-20 GLUCOSE (test code = GLU) mg/dL 74-106 BLOOD UREA NITROGEN (test code = BUN) mg/dL 7-18 GLOMERULAR FILTRATION RATE (test code = GFR) mL/min >=60 CREATININE (test code = CREAT) mg/dL 0.55-1.02 BUN/CREATININE RATIO (test code = BUN/CREA) 10-20 CALCIUM (test code = CA) mg/dL 8.5-10.1 [id number] 17:52:00* Test Item Value Reference Range Interpretation Comments VANCOMYCIN (test code = VANCO) 13.7 UG/ML 5.0-45.0 N PT IS NOT I ROOM V.SRIRAM.2 06/16/19 1416 PATIENT NOT IN ROOM- XR ABDOMEN AP 1 V 2019-06-16 14:13:00 FAX: Leticia Coombs MD [phone] [place]: St: ADM FAX: Breanna Thomas MD Name: SIOBHAN BARBOSA [facility] : 1965 Age/S: 54/F [address] [facility] Unit #: [id number] Loc: [address] [address] Phys: Leticia Luna MD Acct: [id number] Dis Date: Status: ADM IN PHONE #: [phone] Exam Date: 06/16/2019 1350 FAX #: [phone] Reason: SUPRAPUBIC CATHETER PULLED OUT. EXAMS: CPT CODE: [id number] XR ABDOMEN AP 1 V [id number] HISTORY: SUPRAPUBIC CATHETER PULLED OUT. TECHNIQUE: AP abdomen x-ray COMPARISON: 04/02/16 FINDINGS: Lower abdomen is incompletely included on study. Multiple left upper abdominal calcifications, corresponding to calyceal calculi on previous CT. Left ureteral stent without evidence of ureteral calculus. Nono bstructive bowel gas pattern. Colonic fecal retention. No intra-abdominal mass effect. IVC filter. Degenerative changes of the spine. IMPRESSION: Multiple left upper abdominal calcifications , corresponding to calyceal calculi on previous CT. Left ureteral stent without evidence of ureteral calculus. LOCATION: LP at 1413 Reported and signed by : Nguyen Krishna D.O. CC: Leticia Luna MD; Breanna Kirby MD Technologist: Zoë Bhat(R); Stephanyfeliciano Menjivar RT(R) Tr nscrd Date/Time/By: 06/16/2019 (6348) : By: [email or web address] Orig Print D/T: S: 06/16/2019 (3010) PAGE 1 Obi d Report CBC W/AUTO [id number] 12:46:00* Test Item Value Reference Range Interpretation Comments WHITE BLOOD CELL (test code = WBC) 5.7 K/mm3 4.5-12.5 N RED BLOOD CELL (test code = RBC) 3.11 mill/mm3 3.7-5.2 L HEMOGLOBIN (test code = HGB) 9.0 gram/dL 11.5-15.5 L HEMATOCRIT (test code = HCT) 29.1 % 36.0-46.0 L MEAN CELL VOLUME (test code = MCV) 93.6 fL 80-98 N MEAN CELL HGB (test code = MCH) 28.9 picogram 27.0-33.0 N MEAN CELL HGB CONCETRATION (test code = MCHC) 30.9 gram/dL 33.0-36. 0 L RED CELL DISTRIBUTION WIDTH (test code = RDW) 17.4 % 11.6-16. 2 H RED CELL DISTRIBUTION WIDTH SD (test code = RDW-SD) 60.1 fL 37 .0-51.0 H PLATELET COUNT (test code = PLT) 92 K/mm3 150-450 L MEAN PLATELET VOLUME (test code = MPV) 11.9 fL 6.7-11.0 H NEUTROPHIL % (test code = NT%) 72.0 % 39.0-69.0 H IMMATURE GRANULOCYTE % (test code = IG%) 0.4 % 0.0-5.0 N LYMPHOCYTE % (test code = LY%) 17.9 % 25.0-55.0 L MONOCYTE % (test code = MO%) 7.4 % 0.0-10.0 N EOSINOPHIL % (test code = EO%) 1.8 % 0.0-5.0 N BASOPHIL % (test code = BA%) 0.5 % 0.0-1.0 N NUCLEATED RBC % (test code = NRBC%) 0.0 % 0-0 N NEUTROPHIL # (test code = NT#) 4.12 K/mm3 1.8-7.7 N IMMATURE GRANULOCYTE # (test code = IG#) 0.02 x10 3/uL 0-0.03 N LYMPHOCYTE # (test code = LY#) 1.02 K/mm3 1.0-5.0 N MONOCYTE # (test code = MO#) 0.42 K/mm3 0-0.8 N EOSINOPHIL # (test code = EO#) 0.10 K/mm3 0.0-0.5 N BASOPHIL # (test code = BA#) 0.03 K/mm3 0.0-0.2 N NUCLEATED RBC # (test code = NRBC#) 0.00 K/mm3 0.0-0.1 N MANUAL DIFF REQUIRED (test code = MDIFF) NO, ONLY SCAN NEEDED DIFFERENTIAL [id number] 12:46:00* Test Item Value Reference Range Interpretation Comments STAIN ACCEPTABILITY (test code = STN ACCEPTABLE) STAIN ACCEPTABLE POIKILOCYTOSIS (test code = POIK) 2+ ANISOCYTOSIS (test code = ANISO) 2+ MACROCYTOSIS (test code = MACR) 1+ ELLIPTOCYTES (test code = ELL) 1+ CRENATED CELLS (test code = CREN) 1+ PLATELET ESTIMATE (test code = PLTEST) DECREASED PLATELET MORPHOLOGY (test code = PLTMORPH) NORMAL BASIC METABOLIC [id number] 11:52:00* Test Item Value Reference Range Interpretation Comments SODIUM (test code = NA) 144 mmol/L 136-145 N POTASSIUM (test code = K) 4.2 mmol/L 3.5-5.1 N CHLORIDE (test code = CL) 116.0 mmol/L 98-107 H CARBON DIOXIDE (test code = CO2) 19.0 mmol/L 21-32 L ANION GAP (test code = GAP) 13.2 10-20 N GLUCOSE (test code = GLU) 102 mg/dL 74-106 N BLOOD UREA NITROGEN (test code = BUN) 67 mg/dL 7-18 H GLOMERULAR FILTRATION RATE (test code = GFR) 19 mL/min >=60 Estimated GFR by using Modified MDRD formula.Chronic kidney disease is defined as either kidney damageor GFR <60 mL/min/1.73 m2 for >3 months. CREATININE (test code = CREAT) 2.60 mg/dL 0.55-1.02 H Note change in reference range due to change in reagent. BUN/CREATININE RATIO (test code = BUN/CREA) 25.8 10-20 H CALCIUM (test code = CA) 9.1 mg/dL 8.5-10.1 N BASIC METABOLIC [id number] 11:49:00* Test Item Value Reference Range Interpretation Comments SODIUM (test code = NA) 144 mmol/L 136-145 N POTASSIUM (test code = K) 4.2 mmol/L 3.5-5.1 N CHLORIDE (test code = CL) 116.0 mmol/L 98-107 H CARBON DIOXIDE (test code = CO2) mmol/L 21-32 ANION GAP (test code = GAP) 10-20 GLUCOSE (test code = GLU) mg/dL 74-106 BLOOD UREA NITROGEN (test code = BUN) mg/dL 7-18 GLOMERULAR FILTRATION RATE (test code = GFR) mL/min >=60 CREATININE (test code = CREAT) mg/dL 0.55-1.02 BUN/CREATININE RATIO (test code = BUN/CREA) 10-20 CALCIUM (test code = CA) mg/dL 8.5-10.1 CBC W/AUTO [id number] 11:03:00* Test Item Value Reference Range Interpretation Comments WHITE BLOOD CELL (test code = WBC) 5.7 K/mm3 4.5-12.5 N RED BLOOD CELL (test code = RBC) 3.11 mill/mm3 3.7-5.2 L HEMOGLOBIN (test code = HGB) 9.0 gram/dL 11.5-15.5 L HEMATOCRIT (test code = HCT) 29.1 % 36.0-46.0 L MEAN CELL VOLUME (test code = MCV) 93.6 fL 80-98 N MEAN CELL HGB (test code = MCH) 28.9 picogram 27.0-33.0 N MEAN CELL HGB CONCETRATION (test code = MCHC) 30.9 gram/dL 33.0-36. 0 L RED CELL DISTRIBUTION WIDTH (test code = RDW) 17.4 % 11.6-16. 2 H RED CELL DISTRIBUTION WIDTH SD (test code = RDW-SD) 60.1 fL 37 .0-51.0 H PLATELET COUNT (test code = PLT) 92 K/mm3 150-450 L MEAN PLATELET VOLUME (test code = MPV) 11.9 fL 6.7-11.0 H NEUTROPHIL % (test code = NT%) 72.0 % 39.0-69.0 H IMMATURE GRANULOCYTE % (test code = IG%) 0.4 % 0.0-5.0 N LYMPHOCYTE % (test code = LY%) 17.9 % 25.0-55.0 L MONOCYTE % (test code = MO%) 7.4 % 0.0-10.0 N EOSINOPHIL % (test code = EO%) 1.8 % 0.0-5.0 N BASOPHIL % (test code = BA%) 0.5 % 0.0-1.0 N NUCLEATED RBC % (test code = NRBC%) 0.0 % 0-0 N NEUTROPHIL # (test code = NT#) 4.12 K/mm3 1.8-7.7 N IMMATURE GRANULOCYTE # (test code = IG#) 0.02 x10 3/uL 0-0.03 N LYMPHOCYTE # (test code = LY#) 1.02 K/mm3 1.0-5.0 N MONOCYTE # (test code = MO#) 0.42 K/mm3 0-0.8 N EOSINOPHIL # (test code = EO#) 0.10 K/mm3 0.0-0.5 N BASOPHIL # (test code = BA#) 0.03 K/mm3 0.0-0.2 N NUCLEATED RBC # (test code = NRBC#) 0.00 K/mm3 0.0-0.1 N MANUAL DIFF REQUIRED (test code = MDIFF) NO, ONLY SCAN NEEDED DIFFERENTIAL [id number] 11:03:00* Test Item Value Reference Range Interpretation Comments STAIN ACCEPTABILITY (test code = STN ACCEPTABLE) CABOT RINGS (test code = CAB) MORPHOLOGY COMMENT (test code = MOC) PLATELET ESTIMATE (test code = PLTEST) PLATELET MORPHOLOGY (test code = PLTMORPH) CBC W/AUTO [id number] 11:03:00* Test Item Value Reference Range Interpretation Comments WHITE BLOOD CELL (test code = WBC) 5.7 K/mm3 4.5-12.5 N RED BLOOD CELL (test code = RBC) 3.11 mill/mm3 3.7-5.2 L HEMOGLOBIN (test code = HGB) 9.0 gram/dL 11.5-15.5 L HEMATOCRIT (test code = HCT) 29.1 % 36.0-46.0 L MEAN CELL VOLUME (test code = MCV) 93.6 fL 80-98 N MEAN CELL HGB (test code = MCH) 28.9 picogram 27.0-33.0 N MEAN CELL HGB CONCETRATION (test code = MCHC) 30.9 gram/dL 33.0-36. 0 L RED CELL DISTRIBUTION WIDTH (test code = RDW) 17.4 % 11.6-16. 2 H RED CELL DISTRIBUTION WIDTH SD (test code = RDW-SD) 60.1 fL 37 .0-51.0 H PLATELET COUNT (test code = PLT) 92 K/mm3 150-450 L MEAN PLATELET VOLUME (test code = MPV) 11.9 fL 6.7-11.0 H NEUTROPHIL % (test code = NT%) 72.0 % 39.0-69.0 H IMMATURE GRANULOCYTE % (test code = IG%) 0.4 % 0.0-5.0 N LYMPHOCYTE % (test code = LY%) 17.9 % 25.0-55.0 L MONOCYTE % (test code = MO%) 7.4 % 0.0-10.0 N EOSINOPHIL % (test code = EO%) 1.8 % 0.0-5.0 N BASOPHIL % (test code = BA%) 0.5 % 0.0-1.0 N NUCLEATED RBC % (test code = NRBC%) 0.0 % 0-0 N NEUTROPHIL # (test code = NT#) 4.12 K/mm3 1.8-7.7 N IMMATURE GRANULOCYTE # (test code = IG#) 0.02 x10 3/uL 0-0.03 N LYMPHOCYTE # (test code = LY#) 1.02 K/mm3 1.0-5.0 N MONOCYTE # (test code = MO#) 0.42 K/mm3 0-0.8 N EOSINOPHIL # (test code = EO#) 0.10 K/mm3 0.0-0.5 N BASOPHIL # (test code = BA#) 0.03 K/mm3 0.0-0.2 N NUCLEATED RBC # (test code = NRBC#) 0.00 K/mm3 0.0-0.1 N MANUAL DIFF REQUIRED (test code = MDIFF) NO, ONLY SCAN NEEDED DIFFERENTIAL [id number] 11:03:00* Test Item Value Reference Range Interpretation Comments STAIN ACCEPTABILITY (test code = STN ACCEPTABLE) CABOT RINGS (test code = CAB) MORPHOLOGY COMMENT (test code = MOC) PLATELET ESTIMATE (test code = PLTEST) PLATELET MORPHOLOGY (test code = PLTMORPH) CBC W/AUTO [id number] 11:03:00* Test Item Value Reference Range Interpretation Comments WHITE BLOOD CELL (test code = WBC) 5.7 K/mm3 4.5-12.5 N RED BLOOD CELL (test code = RBC) 3.11 mill/mm3 3.7-5.2 L HEMOGLOBIN (test code = HGB) 9.0 gram/dL 11.5-15.5 L HEMATOCRIT (test code = HCT) 29.1 % 36.0-46.0 L MEAN CELL VOLUME (test code = MCV) 93.6 fL 80-98 N MEAN CELL HGB (test code = MCH) 28.9 picogram 27.0-33.0 N MEAN CELL HGB CONCETRATION (test code = MCHC) 30.9 gram/dL 33.0-36. 0 L RED CELL DISTRIBUTION WIDTH (test code = RDW) 17.4 % 11.6-16. 2 H RED CELL DISTRIBUTION WIDTH SD (test code = RDW-SD) 60.1 fL 37 .0-51.0 H PLATELET COUNT (test code = PLT) 92 K/mm3 150-450 L MEAN PLATELET VOLUME (test code = MPV) 11.9 fL 6.7-11.0 H NEUTROPHIL % (test code = NT%) 72.0 % 39.0-69.0 H IMMATURE GRANULOCYTE % (test code = IG%) 0.4 % 0.0-5.0 N LYMPHOCYTE % (test code = LY%) 17.9 % 25.0-55.0 L MONOCYTE % (test code = MO%) 7.4 % 0.0-10.0 N EOSINOPHIL % (test code = EO%) 1.8 % 0.0-5.0 N BASOPHIL % (test code = BA%) 0.5 % 0.0-1.0 N NUCLEATED RBC % (test code = NRBC%) 0.0 % 0-0 N NEUTROPHIL # (test code = NT#) 4.12 K/mm3 1.8-7.7 N IMMATURE GRANULOCYTE # (test code = IG#) 0.02 x10 3/uL 0-0.03 N LYMPHOCYTE # (test code = LY#) 1.02 K/mm3 1.0-5.0 N MONOCYTE # (test code = MO#) 0.42 K/mm3 0-0.8 N EOSINOPHIL # (test code = EO#) 0.10 K/mm3 0.0-0.5 N BASOPHIL # (test code = BA#) 0.03 K/mm3 0.0-0.2 N NUCLEATED RBC # (test code = NRBC#) 0.00 K/mm3 0.0-0.1 N MANUAL DIFF REQUIRED (test code = MDIFF) NO, ONLY SCAN NEEDED DIFFERENTIAL [id number] 11:03:00* Test Item Value Reference Range Interpretation Comments STAIN ACCEPTABILITY (test code = STN ACCEPTABLE) MORPHOLOGY COMMENT (test code = MOC) PLATELET ESTIMATE (test code = PLTEST) PLATELET MORPHOLOGY (test code = PLTMORPH) CBC W/AUTO [id number] 11:03:00* Test Item Value Reference Range Interpretation Comments WHITE BLOOD CELL (test code = WBC) 5.7 K/mm3 4.5-12.5 N RED BLOOD CELL (test code = RBC) 3.11 mill/mm3 3.7-5.2 L HEMOGLOBIN (test code = HGB) 9.0 gram/dL 11.5-15.5 L HEMATOCRIT (test code = HCT) 29.1 % 36.0-46.0 L MEAN CELL VOLUME (test code = MCV) 93.6 fL 80-98 N MEAN CELL HGB (test code = MCH) 28.9 picogram 27.0-33.0 N MEAN CELL HGB CONCETRATION (test code = MCHC) 30.9 gram/dL 33.0-36. 0 L RED CELL DISTRIBUTION WIDTH (test code = RDW) 17.4 % 11.6-16. 2 H RED CELL DISTRIBUTION WIDTH SD (test code = RDW-SD) 60.1 fL 37 .0-51.0 H PLATELET COUNT (test code = PLT) 92 K/mm3 150-450 L MEAN PLATELET VOLUME (test code = MPV) 11.9 fL 6.7-11.0 H NEUTROPHIL % (test code = NT%) 72.0 % 39.0-69.0 H IMMATURE GRANULOCYTE % (test code = IG%) 0.4 % 0.0-5.0 N LYMPHOCYTE % (test code = LY%) 17.9 % 25.0-55.0 L MONOCYTE % (test code = MO%) 7.4 % 0.0-10.0 N EOSINOPHIL % (test code = EO%) 1.8 % 0.0-5.0 N BASOPHIL % (test code = BA%) 0.5 % 0.0-1.0 N NUCLEATED RBC % (test code = NRBC%) 0.0 % 0-0 N NEUTROPHIL # (test code = NT#) 4.12 K/mm3 1.8-7.7 N IMMATURE GRANULOCYTE # (test code = IG#) 0.02 x10 3/uL 0-0.03 N LYMPHOCYTE # (test code = LY#) 1.02 K/mm3 1.0-5.0 N MONOCYTE # (test code = MO#) 0.42 K/mm3 0-0.8 N EOSINOPHIL # (test code = EO#) 0.10 K/mm3 0.0-0.5 N BASOPHIL # (test code = BA#) 0.03 K/mm3 0.0-0.2 N NUCLEATED RBC # (test code = NRBC#) 0.00 K/mm3 0.0-0.1 N MANUAL DIFF REQUIRED (test code = MDIFF) NO, ONLY SCAN NEEDED DIFFERENTIAL [id number] 11:03:00* Test Item Value Reference Range Interpretation Comments STAIN ACCEPTABILITY (test code = STN ACCEPTABLE) CABOT RINGS (test code = CAB) MORPHOLOGY COMMENT (test code = MOC) PLATELET ESTIMATE (test code = PLTEST) PLATELET MORPHOLOGY (test code = PLTMORPH) [id number] 14:36:00* Test Item Value Reference Range Interpretation Comments VANCOMYCIN (test code = VANCO) 31.8 UG/ML 5.0-45.0 N BLOOD UREA [id number] 07:51:00* Test Item Value Reference Range Interpretation Comments BLOOD UREA NITROGEN (test code = BUN) 51 mg/dL 7-18 H RESULT VERIFIED BY REPEAT ANALYSIS [id number] 07:51:00* Test Item Value Reference Range Interpretation Comments CREATININE (test code = CREAT) 2.70 mg/dL 0.55-1.02 H Note change in reference range due to change in reagent. BLOOD UREA [id number] 10:13:00* Test Item Value Reference Range Interpretation Comments BLOOD UREA NITROGEN (test code = BUN) 42 mg/dL 7-18 H [id number] 10:13:00* Test Item Value Reference Range Interpretation Comments CREATININE (test code = CREAT) 2.60 mg/dL 0.55-1.02 H Note change in reference range due to change in reagent. COMPREHENSIVE METABOLIC [id number] 10:13:00* Test Item Value Reference Range Interpretation Comments SODIUM (test code = NA) 142 mmol/L 136-145 N POTASSIUM (test code = K) 4.1 mmol/L 3.5-5.1 N CHLORIDE (test code = CL) 112.0 mmol/L 98-107 H CARBON DIOXIDE (test code = CO2) 21.0 mmol/L 21-32 N ANION GAP (test code = GAP) 13.1 10-20 N GLUCOSE (test code = GLU) 68 mg/dL 74-106 L BLOOD UREA NITROGEN (test code = BUN) 41 mg/dL 7-18 H GLOMERULAR FILTRATION RATE (test code = GFR) 19 mL/min >=60 Estimated GFR by using Modified MDRD formula.Chronic kidney disease is defined as either kidney damageor GFR <60 mL/min/1.73 m2 for >3 months. CREATININE (test code = CREAT) 2.60 mg/dL 0.55-1.02 H Note change in reference range due to change in reagent. BUN/CREATININE RATIO (test code = BUN/CREA) 15.8 10-20 N TOTAL PROTEIN (test code = PROT) 6.5 gram/dL 6.4-8.2 N ALBUMIN (test code = ALB) 2.0 g/dL 3.4-5.0 L GLOBULIN (test code = GLOB) 4.5 gram/dL 2.7-4.2 H ALBUMIN/GLOBULIN RATIO (test code = A/G) 0.4 0.75-1.50 L CALCIUM (test code = CA) 9.0 mg/dL 8.5-10.1 N BILIRUBIN TOTAL (test code = BILT) 1.80 mg/dL 0.0-1.0 H SGOT/AST (test code = AST) 76 IUnit/L 15-37 H SGPT/ALT (test code = ALT) 50 IUnit/L 12-78 N ALKALINE PHOSPHATASE TOTAL (test code = ALKP) 611 IUnit/L 45-117 H Note change in reference range due to change in reagent. COMPREHENSIVE METABOLIC [id number] 10:01:00* Test Item Value Reference Range Interpretation Comments SODIUM (test code = NA) 142 mmol/L 136-145 N POTASSIUM (test code = K) 4.1 mmol/L 3.5-5.1 N CHLORIDE (test code = CL) 112.0 mmol/L 98-107 H CARBON DIOXIDE (test code = CO2) mmol/L 21-32 ANION GAP (test code = GAP) 10-20 GLUCOSE (test code = GLU) mg/dL 74-106 BLOOD UREA NITROGEN (test code = BUN) mg/dL 7-18 GLOMERULAR FILTRATION RATE (test code = GFR) mL/min >=60 CREATININE (test code = CREAT) mg/dL 0.55-1.02 BUN/CREATININE RATIO (test code = BUN/CREA) 10-20 TOTAL PROTEIN (test code = PROT) gram/dL 6.4-8.2 ALBUMIN (test code = ALB) g/dL 3.4-5.0 GLOBULIN (test code = GLOB) gram/dL 2.7-4.2 ALBUMIN/GLOBULIN RATIO (test code = A/G) 0.75-1.50 CALCIUM (test code = CA) mg/dL 8.5-10.1 BILIRUBIN TOTAL (test code = BILT) mg/dL 0.0-1.0 SGOT/AST (test code = AST) IUnit/L 15-37 SGPT/ALT (test code = ALT) IUnit/L 12-78 ALKALINE PHOSPHATASE TOTAL (test code = ALKP) IUnit/L 45-117 CBC W/AUTO [id number] 09:59:00* Test Item Value Reference Range Interpretation Comments WHITE BLOOD CELL (test code = WBC) 7.5 K/mm3 4.5-12.5 N RED BLOOD CELL (test code = RBC) 3.24 mill/mm3 3.7-5.2 L HEMOGLOBIN (test code = HGB) 9.5 gram/dL 11.5-15.5 L HEMATOCRIT (test code = HCT) 31.1 % 36.0-46.0 L MEAN CELL VOLUME (test code = MCV) 96.0 fL 80-98 N MEAN CELL HGB (test code = MCH) 29.3 picogram 27.0-33.0 N MEAN CELL HGB CONCETRATION (test code = MCHC) 30.5 gram/dL 33.0-36. 0 L RED CELL DISTRIBUTION WIDTH (test code = RDW) 18.1 % 11.6-16. 2 H RED CELL DISTRIBUTION WIDTH SD (test code = RDW-SD) 63.6 fL 37 .0-51.0 H PLATELET COUNT (test code = PLT) 101 K/mm3 150-450 L MEAN PLATELET VOLUME (test code = MPV) 11.8 fL 6.7-11.0 H NEUTROPHIL % (test code = NT%) 76.3 % 39.0-69.0 H IMMATURE GRANULOCYTE % (test code = IG%) 0.5 % 0.0-5.0 N LYMPHOCYTE % (test code = LY%) 13.7 % 25.0-55.0 L MONOCYTE % (test code = MO%) 6.7 % 0.0-10.0 N EOSINOPHIL % (test code = EO%) 2.1 % 0.0-5.0 N BASOPHIL % (test code = BA%) 0.7 % 0.0-1.0 N NUCLEATED RBC % (test code = NRBC%) 0.0 % 0-0 N NEUTROPHIL # (test code = NT#) 5.69 K/mm3 1.8-7.7 N IMMATURE GRANULOCYTE # (test code = IG#) 0.04 x10 3/uL 0-0.03 H LYMPHOCYTE # (test code = LY#) 1.02 K/mm3 1.0-5.0 N MONOCYTE # (test code = MO#) 0.50 K/mm3 0-0.8 N EOSINOPHIL # (test code = EO#) 0.16 K/mm3 0.0-0.5 N BASOPHIL # (test code = BA#) 0.05 K/mm3 0.0-0.2 N NUCLEATED RBC # (test code = NRBC#) 0.00 K/mm3 0.0-0.1 N FE W/TOTAL IRON BINDING [id number] 00:00:00* Test Item Value Reference Range Interpretation Comments SERUM IRON (test code = IRON) 33 ug/dL 50-175 L TOTAL IRON BINDING CAPACITY (test code = TIBC) 181 mcg/dL 250-450 L IRON SATURATION (test code = FESAT) 18.23 % 13-45 N BASIC METABOLIC [id number] 15:02:00* Test Item Value Reference Range Interpretation Comments SODIUM (test code = NA) 141 mmol/L 136-145 N POTASSIUM (test code = K) 4.3 mmol/L 3.5-5.1 N CHLORIDE (test code = CL) 111.0 mmol/L 98-107 H CARBON DIOXIDE (test code = CO2) 19.0 mmol/L 21-32 L ANION GAP (test code = GAP) 15.3 10-20 N GLUCOSE (test code = GLU) 107 mg/dL 74-106 H BLOOD UREA NITROGEN (test code = BUN) 43 mg/dL 7-18 H GLOMERULAR FILTRATION RATE (test code = GFR) 20 mL/min >=60 Estimated GFR by using Modified MDRD formula.Chronic kidney disease is defined as either kidney damageor GFR <60 mL/min/1.73 m2 for >3 months. CREATININE (test code = CREAT) 2.50 mg/dL 0.55-1.02 H Note change in reference range due to change in reagent. BUN/CREATININE RATIO (test code = BUN/CREA) 17.3 10-20 N CALCIUM (test code = CA) 8.4 mg/dL 8.5-10.1 L BASIC METABOLIC [id number] 14:58:00* Test Item Value Reference Range Interpretation Comments SODIUM (test code = NA) 141 mmol/L 136-145 N POTASSIUM (test code = K) 4.3 mmol/L 3.5-5.1 N CHLORIDE (test code = CL) 111.0 mmol/L 98-107 H CARBON DIOXIDE (test code = CO2) mmol/L 21-32 ANION GAP (test code = GAP) 10-20 GLUCOSE (test code = GLU) mg/dL 74-106 BLOOD UREA NITROGEN (test code = BUN) mg/dL 7-18 GLOMERULAR FILTRATION RATE (test code = GFR) mL/min >=60 CREATININE (test code = CREAT) mg/dL 0.55-1.02 BUN/CREATININE RATIO (test code = BUN/CREA) 10-20 CALCIUM (test code = CA) mg/dL 8.5-10.1 HGB [id number] 09:18:00* Test Item Value Reference Range Interpretation Comments HEMOGLOBIN (test code = HGB) 9.0 gram/dL 11.5-15.5 L RESULT VERIFIED BY REPEAT ANALYSIS HEMATOCRIT (test code = HCT) 29.4 % 36.0-46.0 L CBC W/AUTO [id number] 05:11:00* Test Item Value Reference Range Interpretation Comments WHITE BLOOD CELL (test code = WBC) 6.4 K/mm3 4.5-12.5 N RED BLOOD CELL (test code = RBC) 2.33 mill/mm3 3.7-5.2 L HEMOGLOBIN (test code = HGB) 6.8 gram/dL 11.5-15.5 L HEMATOCRIT (test code = HCT) 22.9 % 36.0-46.0 L MEAN CELL VOLUME (test code = MCV) 98.3 fL 80-98 H MEAN CELL HGB (test code = MCH) 29.2 picogram 27.0-33.0 N MEAN CELL HGB CONCETRATION (test code = MCHC) 29.7 gram/dL 33.0-36. 0 L RED CELL DISTRIBUTION WIDTH (test code = RDW) 18.4 % 11.6-16. 2 H RED CELL DISTRIBUTION WIDTH SD (test code = RDW-SD) 66.3 fL 37 .0-51.0 H PLATELET COUNT (test code = PLT) 83 K/mm3 150-450 L MEAN PLATELET VOLUME (test code = MPV) 12.2 fL 6.7-11.0 H NEUTROPHIL % (test code = NT%) 74.6 % 39.0-69.0 H IMMATURE GRANULOCYTE % (test code = IG%) 0.3 % 0.0-5.0 N LYMPHOCYTE % (test code = LY%) 15.6 % 25.0-55.0 L MONOCYTE % (test code = MO%) 8.6 % 0.0-10.0 N EOSINOPHIL % (test code = EO%) 0.6 % 0.0-5.0 N BASOPHIL % (test code = BA%) 0.3 % 0.0-1.0 N NUCLEATED RBC % (test code = NRBC%) 0.0 % 0-0 N NEUTROPHIL # (test code = NT#) 4.78 K/mm3 1.8-7.7 N IMMATURE GRANULOCYTE # (test code = IG#) 0.02 x10 3/uL 0-0.03 N LYMPHOCYTE # (test code = LY#) 1.00 K/mm3 1.0-5.0 N MONOCYTE # (test code = MO#) 0.55 K/mm3 0-0.8 N EOSINOPHIL # (test code = EO#) 0.04 K/mm3 0.0-0.5 N BASOPHIL # (test code = BA#) 0.02 K/mm3 0.0-0.2 N NUCLEATED RBC # (test code = NRBC#) 0.00 K/mm3 0.0-0.1 N MANUAL DIFF REQUIRED (test code = MDIFF) NO, ONLY SCAN NEEDED DIFFERENTIAL [id number] 05:11:00* Test Item Value Reference Range Interpretation Comments STAIN ACCEPTABILITY (test code = STN ACCEPTABLE) STAIN ACCEPTABLE ANISOCYTOSIS (test code = ANISO) 1+ TEAR DROP CELLS (test code = TEAR) 1+ PLATELET ESTIMATE (test code = PLTEST) DECREASED PLATELET MORPHOLOGY (test code = PLTMORPH) CLUMPING PRESENT BASIC METABOLIC [id number] 05:09:00* Test Item Value Reference Range Interpretation Comments SODIUM (test code = NA) 146 mmol/L 136-145 H POTASSIUM (test code = K) 3.6 mmol/L 3.5-5.1 N CHLORIDE (test code = CL) 117.0 mmol/L 98-107 H CARBON DIOXIDE (test code = CO2) 22.0 mmol/L 21-32 N ANION GAP (test code = GAP) 10.6 10-20 N GLUCOSE (test code = GLU) 62 mg/dL 74-106 L BLOOD UREA NITROGEN (test code = BUN) 42 mg/dL 7-18 H GLOMERULAR FILTRATION RATE (test code = GFR) 22 mL/min >=60 Estimated GFR by using Modified MDRD formula.Chronic kidney disease is defined as either kidney damageor GFR <60 mL/min/1.73 m2 for >3 months. CREATININE (test code = CREAT) 2.30 mg/dL 0.55-1.02 H Note change in reference range due to change in reagent. BUN/CREATININE RATIO (test code = BUN/CREA) 18.0 10-20 N CALCIUM (test code = CA) 8.2 mg/dL 8.5-10.1 L CBC W/AUTO [id number] 04:42:00* Test Item Value Reference Range Interpretation Comments WHITE BLOOD CELL (test code = WBC) 6.4 K/mm3 4.5-12.5 N RED BLOOD CELL (test code = RBC) 2.33 mill/mm3 3.7-5.2 L HEMOGLOBIN (test code = HGB) 6.8 gram/dL 11.5-15.5 L HEMATOCRIT (test code = HCT) 22.9 % 36.0-46.0 L MEAN CELL VOLUME (test code = MCV) 98.3 fL 80-98 H MEAN CELL HGB (test code = MCH) 29.2 picogram 27.0-33.0 N MEAN CELL HGB CONCETRATION (test code = MCHC) 29.7 gram/dL 33.0-36. 0 L RED CELL DISTRIBUTION WIDTH (test code = RDW) 18.4 % 11.6-16. 2 H RED CELL DISTRIBUTION WIDTH SD (test code = RDW-SD) 66.3 fL 37 .0-51.0 H PLATELET COUNT (test code = PLT) 83 K/mm3 150-450 L MEAN PLATELET VOLUME (test code = MPV) 12.2 fL 6.7-11.0 H NEUTROPHIL % (test code = NT%) 74.6 % 39.0-69.0 H IMMATURE GRANULOCYTE % (test code = IG%) 0.3 % 0.0-5.0 N LYMPHOCYTE % (test code = LY%) 15.6 % 25.0-55.0 L MONOCYTE % (test code = MO%) 8.6 % 0.0-10.0 N EOSINOPHIL % (test code = EO%) 0.6 % 0.0-5.0 N BASOPHIL % (test code = BA%) 0.3 % 0.0-1.0 N NUCLEATED RBC % (test code = NRBC%) 0.0 % 0-0 N NEUTROPHIL # (test code = NT#) 4.78 K/mm3 1.8-7.7 N IMMATURE GRANULOCYTE # (test code = IG#) 0.02 x10 3/uL 0-0.03 N LYMPHOCYTE # (test code = LY#) 1.00 K/mm3 1.0-5.0 N MONOCYTE # (test code = MO#) 0.55 K/mm3 0-0.8 N EOSINOPHIL # (test code = EO#) 0.04 K/mm3 0.0-0.5 N BASOPHIL # (test code = BA#) 0.02 K/mm3 0.0-0.2 N NUCLEATED RBC # (test code = NRBC#) 0.00 K/mm3 0.0-0.1 N MANUAL DIFF REQUIRED (test code = MDIFF) NO, ONLY SCAN NEEDED DIFFERENTIAL [id number] 04:42:00* Test Item Value Reference Range Interpretation Comments STAIN ACCEPTABILITY (test code = STN ACCEPTABLE) CABOT RINGS (test code = CAB) MORPHOLOGY COMMENT (test code = MOC) PLATELET ESTIMATE (test code = PLTEST) PLATELET MORPHOLOGY (test code = PLTMORPH) CBC W/AUTO [id number] 04:42:00* Test Item Value Reference Range Interpretation Comments WHITE BLOOD CELL (test code = WBC) 6.4 K/mm3 4.5-12.5 N RED BLOOD CELL (test code = RBC) 2.33 mill/mm3 3.7-5.2 L HEMOGLOBIN (test code = HGB) 6.8 gram/dL 11.5-15.5 L HEMATOCRIT (test code = HCT) 22.9 % 36.0-46.0 L MEAN CELL VOLUME (test code = MCV) 98.3 fL 80-98 H MEAN CELL HGB (test code = MCH) 29.2 picogram 27.0-33.0 N MEAN CELL HGB CONCETRATION (test code = MCHC) 29.7 gram/dL 33.0-36. 0 L RED CELL DISTRIBUTION WIDTH (test code = RDW) 18.4 % 11.6-16. 2 H RED CELL DISTRIBUTION WIDTH SD (test code = RDW-SD) 66.3 fL 37 .0-51.0 H PLATELET COUNT (test code = PLT) 83 K/mm3 150-450 L MEAN PLATELET VOLUME (test code = MPV) 12.2 fL 6.7-11.0 H NEUTROPHIL % (test code = NT%) 74.6 % 39.0-69.0 H IMMATURE GRANULOCYTE % (test code = IG%) 0.3 % 0.0-5.0 N LYMPHOCYTE % (test code = LY%) 15.6 % 25.0-55.0 L MONOCYTE % (test code = MO%) 8.6 % 0.0-10.0 N EOSINOPHIL % (test code = EO%) 0.6 % 0.0-5.0 N BASOPHIL % (test code = BA%) 0.3 % 0.0-1.0 N NUCLEATED RBC % (test code = NRBC%) 0.0 % 0-0 N NEUTROPHIL # (test code = NT#) 4.78 K/mm3 1.8-7.7 N IMMATURE GRANULOCYTE # (test code = IG#) 0.02 x10 3/uL 0-0.03 N LYMPHOCYTE # (test code = LY#) 1.00 K/mm3 1.0-5.0 N MONOCYTE # (test code = MO#) 0.55 K/mm3 0-0.8 N EOSINOPHIL # (test code = EO#) 0.04 K/mm3 0.0-0.5 N BASOPHIL # (test code = BA#) 0.02 K/mm3 0.0-0.2 N NUCLEATED RBC # (test code = NRBC#) 0.00 K/mm3 0.0-0.1 N MANUAL DIFF REQUIRED (test code = MDIFF) NO, ONLY SCAN NEEDED DIFFERENTIAL [id number] 04:42:00* Test Item Value Reference Range Interpretation Comments STAIN ACCEPTABILITY (test code = STN ACCEPTABLE) MORPHOLOGY COMMENT (test code = MOC) PLATELET ESTIMATE (test code = PLTEST) PLATELET MORPHOLOGY (test code = PLTMORPH) CBC W/AUTO [id number] 04:41:00* Test Item Value Reference Range Interpretation Comments WHITE BLOOD CELL (test code = WBC) 6.4 K/mm3 4.5-12.5 N RED BLOOD CELL (test code = RBC) 2.33 mill/mm3 3.7-5.2 L HEMOGLOBIN (test code = HGB) 6.8 gram/dL 11.5-15.5 L HEMATOCRIT (test code = HCT) 22.9 % 36.0-46.0 L MEAN CELL VOLUME (test code = MCV) 98.3 fL 80-98 H MEAN CELL HGB (test code = MCH) 29.2 picogram 27.0-33.0 N MEAN CELL HGB CONCETRATION (test code = MCHC) 29.7 gram/dL 33.0-36. 0 L RED CELL DISTRIBUTION WIDTH (test code = RDW) 18.4 % 11.6-16. 2 H RED CELL DISTRIBUTION WIDTH SD (test code = RDW-SD) 66.3 fL 37 .0-51.0 H PLATELET COUNT (test code = PLT) 83 K/mm3 150-450 L MEAN PLATELET VOLUME (test code = MPV) 12.2 fL 6.7-11.0 H NEUTROPHIL % (test code = NT%) 74.6 % 39.0-69.0 H IMMATURE GRANULOCYTE % (test code = IG%) 0.3 % 0.0-5.0 N LYMPHOCYTE % (test code = LY%) 15.6 % 25.0-55.0 L MONOCYTE % (test code = MO%) 8.6 % 0.0-10.0 N EOSINOPHIL % (test code = EO%) 0.6 % 0.0-5.0 N BASOPHIL % (test code = BA%) 0.3 % 0.0-1.0 N NUCLEATED RBC % (test code = NRBC%) 0.0 % 0-0 N NEUTROPHIL # (test code = NT#) 4.78 K/mm3 1.8-7.7 N IMMATURE GRANULOCYTE # (test code = IG#) 0.02 x10 3/uL 0-0.03 N LYMPHOCYTE # (test code = LY#) 1.00 K/mm3 1.0-5.0 N MONOCYTE # (test code = MO#) 0.55 K/mm3 0-0.8 N EOSINOPHIL # (test code = EO#) 0.04 K/mm3 0.0-0.5 N BASOPHIL # (test code = BA#) 0.02 K/mm3 0.0-0.2 N NUCLEATED RBC # (test code = NRBC#) 0.00 K/mm3 0.0-0.1 N MANUAL DIFF REQUIRED (test code = MDIFF) NO, ONLY SCAN NEEDED DIFFERENTIAL [id number] 04:41:00* Test Item Value Reference Range Interpretation Comments STAIN ACCEPTABILITY (test code = STN ACCEPTABLE) CABOT RINGS (test code = CAB) MORPHOLOGY COMMENT (test code = MOC) PLATELET ESTIMATE (test code = PLTEST) PLATELET MORPHOLOGY (test code = PLTMORPH) CBC W/AUTO [id number] 04:41:00* Test Item Value Reference Range Interpretation Comments WHITE BLOOD CELL (test code = WBC) 6.4 K/mm3 4.5-12.5 N RED BLOOD CELL (test code = RBC) 2.33 mill/mm3 3.7-5.2 L HEMOGLOBIN (test code = HGB) 6.8 gram/dL 11.5-15.5 L HEMATOCRIT (test code = HCT) 22.9 % 36.0-46.0 L MEAN CELL VOLUME (test code = MCV) 98.3 fL 80-98 H MEAN CELL HGB (test code = MCH) 29.2 picogram 27.0-33.0 N MEAN CELL HGB CONCETRATION (test code = MCHC) 29.7 gram/dL 33.0-36. 0 L RED CELL DISTRIBUTION WIDTH (test code = RDW) 18.4 % 11.6-16. 2 H RED CELL DISTRIBUTION WIDTH SD (test code = RDW-SD) 66.3 fL 37 .0-51.0 H PLATELET COUNT (test code = PLT) 83 K/mm3 150-450 L MEAN PLATELET VOLUME (test code = MPV) 12.2 fL 6.7-11.0 H NEUTROPHIL % (test code = NT%) 74.6 % 39.0-69.0 H IMMATURE GRANULOCYTE % (test code = IG%) 0.3 % 0.0-5.0 N LYMPHOCYTE % (test code = LY%) 15.6 % 25.0-55.0 L MONOCYTE % (test code = MO%) 8.6 % 0.0-10.0 N EOSINOPHIL % (test code = EO%) 0.6 % 0.0-5.0 N BASOPHIL % (test code = BA%) 0.3 % 0.0-1.0 N NUCLEATED RBC % (test code = NRBC%) 0.0 % 0-0 N NEUTROPHIL # (test code = NT#) 4.78 K/mm3 1.8-7.7 N IMMATURE GRANULOCYTE # (test code = IG#) 0.02 x10 3/uL 0-0.03 N LYMPHOCYTE # (test code = LY#) 1.00 K/mm3 1.0-5.0 N MONOCYTE # (test code = MO#) 0.55 K/mm3 0-0.8 N EOSINOPHIL # (test code = EO#) 0.04 K/mm3 0.0-0.5 N BASOPHIL # (test code = BA#) 0.02 K/mm3 0.0-0.2 N NUCLEATED RBC # (test code = NRBC#) 0.00 K/mm3 0.0-0.1 N MANUAL DIFF REQUIRED (test code = MDIFF) NO, ONLY SCAN NEEDED DIFFERENTIAL [id number] 04:41:00* Test Item Value Reference Range Interpretation Comments STAIN ACCEPTABILITY (test code = STN ACCEPTABLE) CABOT RINGS (test code = CAB) MORPHOLOGY COMMENT (test code = MOC) PLATELET ESTIMATE (test code = PLTEST) PLATELET MORPHOLOGY (test code = PLTMORPH) URINALYSIS [id number] 18:24:00* Test Item Value Reference Range Interpretation Comments UA COLOR (test code = COLU) YELLOW YELLOW UA APPEARANCE (test code = APPU) TURBID CLEAR A UA GLUCOSE DIPSTICK (test code = DGLUU) NEGATIVE mg/dL NEGATIVE UA BILIRUBIN DIPSTICK (test code = BILU) NEGATIVE mg/dL NEGATIVE UA KETONE DIPSTICK (test code = KETU) NEGATIVE mg/dL NEGATIVE UA SPECIFIC GRAVITY (test code = SGU) 1.008 1.001-1.035 UA BLOOD DIPSTICK (test code = JONO) 0.2 mg/dL (2+) mg/dL NEGATIVE A UA PH DIPSTICK (test code = AHMET) 7.0 5.0-8.0 UA PROTEIN DIPSTICK (test code = PROU) 30 (1+) mg/dL NEGATIVE A UA UROBILINIOGEN DIPSTICK (test code = URO) Normal mg/dL NEGATIVE UA NITRITE DIPSTICK (test code = IFEOMA) NEGATIVE NEGATIVE UA LEUKOCYTE ESTERASE W REFLEX (test code = LEUUR) 500 Franki/u L (3+) Franki/uL NEGATIVE A UA WBC (test code = WBCU) >200 per HPF 0-5 A UA RBC (test code = RBCU) 51-100 #/HPF 0-5 UA WBC CLUMPS (test code = WBCUCL) >10 /HPF NONE A UA EPITHELIAL CELLS (test code = EPIU) FEW per HPF FEW UA BACTERIA (test code = BACU) MANY #/HPF NONE A Urine Source? Clean CatchLACTIC [id number] 16:31:00* Test Item Value Reference Range Interpretation Comments LACTIC ACID (test code = LACT) 1.8 mmol/L 0.4-1.9 N PROTHROMBIN [id number] 14:10:00* Test Item Value Reference Range Interpretation Comments PROTHROMBIN TIME PATIENT (test code = PTP) 13.1 seconds 9.0-14.0 N INTERNATIONAL NORMAL RATIO (test code = INR) 1.1 0.8-1.2 N The therapeutic range for oral anticoagulant therapy formost indications is an international normalized ratio (INR)of between 2.0 and 3.0. The recommended therapeutic INRrange for various clinical situations is listed below: Clinical Situation INR range Pulmonary e mbolism treatment (2.0-3.0)Venous thrombosis treatmentVenous thrombosis prophylaxis (high risk surgery)Prevention of systemic embolism from: Acute myocardial infarction Valvular heart disease Atrial fibrillation Mechanical prosthetic heart valves (2.5-3.5) THROMBOPLASTIN TIME [id number] 14:10:00* Test Item Value Reference Range Interpretation Comments THROMBOPLASTIN TIME PARTIAL (test code = PTT) 32.2 seconds 25.0-36. 5 N LACTIC [id number] 13:59:00* Test Item Value Reference Range Interpretation Comments LACTIC ACID (test code = LACT) 2.0 mmol/L 0.4-1.9 H Results called to [id number] by MYAH 06/10/19 1359Critical results verified and read back by Nurse? Y BASIC METABOLIC [id number] 13:49:00* Test Item Value Reference Range Interpretation Comments SODIUM (test code = NA) 148 mmol/L 136-145 H POTASSIUM (test code = K) 4.1 mmol/L 3.5-5.1 N CHLORIDE (test code = CL) 114.0 mmol/L 98-107 H CARBON DIOXIDE (test code = CO2) 23.0 mmol/L 21-32 N ANION GAP (test code = GAP) 15.1 10-20 N GLUCOSE (test code = GLU) 127 mg/dL 74-106 H BLOOD UREA NITROGEN (test code = BUN) 46 mg/dL 7-18 H GLOMERULAR FILTRATION RATE (test code = GFR) 19 mL/min >=60 Estimated GFR by using Modified MDRD formula.Chronic kidney disease is defined as either kidney damageor GFR <60 mL/min/1.73 m2 for >3 months. CREATININE (test code = CREAT) 2.60 mg/dL 0.55-1.02 H Note change in reference range due to change in reagent. BUN/CREATININE RATIO (test code = BUN/CREA) 17.4 10-20 N CALCIUM (test code = CA) 8.5 mg/dL 8.5-10.1 N HEPATIC FUNCTION [id number] 13:49:00* Test Item Value Reference Range Interpretation Comments TOTAL PROTEIN (test code = PROT) 7.2 gram/dL 6.4-8.2 N ALBUMIN (test code = ALB) 2.2 g/dL 3.4-5.0 L GLOBULIN (test code = GLOB) 5.0 gram/dL 2.7-4.2 H ALBUMIN/GLOBULIN RATIO (test code = A/G) 0.4 0.75-1.50 L BILIRUBIN TOTAL (test code = BILT) 1.60 mg/dL 0.0-1.0 H BILIRUBIN DIRECT (test code = BILD) 1.37 mg/dL 0.0-0.20 H SGOT/AST (test code = AST) 72 IUnit/L 15-37 H SGPT/ALT (test code = ALT) 56 IUnit/L 12-78 N ALKALINE PHOSPHATASE TOTAL (test code = ALKP) 753 IUnit/L 45-117 H Note change in reference range due to change in reagent. [id number] 13:49:00* Test Item Value Reference Range Interpretation Comments TROPONIN-I (test code = TROPI) <0.015 ng/mL 0-0.045 N BASIC METABOLIC [id number] 13:41:00* Test Item Value Reference Range Interpretation Comments SODIUM (test code = NA) 148 mmol/L 136-145 H POTASSIUM (test code = K) 4.1 mmol/L 3.5-5.1 N CHLORIDE (test code = CL) 114.0 mmol/L 98-107 H CARBON DIOXIDE (test code = CO2) mmol/L 21-32 ANION GAP (test code = GAP) 10-20 GLUCOSE (test code = GLU) mg/dL 74-106 BLOOD UREA NITROGEN (test code = BUN) mg/dL 7-18 GLOMERULAR FILTRATION RATE (test code = GFR) mL/min >=60 CREATININE (test code = CREAT) mg/dL 0.55-1.02 BUN/CREATININE RATIO (test code = BUN/CREA) 10-20 CALCIUM (test code = CA) mg/dL 8.5-10.1 HEPATIC FUNCTION [id number] 13:41:00* Test Item Value Reference Range Interpretation Comments TOTAL PROTEIN (test code = PROT) gram/dL 6.4-8.2 ALBUMIN (test code = ALB) g/dL 3.4-5.0 GLOBULIN (test code = GLOB) gram/dL 2.7-4.2 ALBUMIN/GLOBULIN RATIO (test code = A/G) 0.75-1.50 BILIRUBIN TOTAL (test code = BILT) mg/dL 0.0-1.0 BILIRUBIN DIRECT (test code = BILD) mg/dL 0.0-0.20 SGOT/AST (test code = AST) IUnit/L 15-37 SGPT/ALT (test code = ALT) IUnit/L 12-78 ALKALINE PHOSPHATASE TOTAL (test code = ALKP) IUnit/L 45-117 [id number] 13:41:00* Test Item Value Reference Range Interpretation Comments TROPONIN-I (test code = TROPI) ng/mL 0-0.045 - XR CHEST 1 [id number] 13:17:00 FAX: Caroline Michael DO [place]: [address]: PRE Name: SIOBHAN ROBERTS [facility] : [birth year] 63 Age/S: 54/F Jana Whiting Unit #: [id number] Loc: [place] [address] Phys: Caroline Michael DO Acct: [id number] Dis Date: Status: PRE ER PHONE #: [phone] Exam Date: 06/10/2019 1310 FAX #: [phone] Reason: CODE SEPSIS EXAMS: CPT CODE: [id number] XR CHEST 1 V 60276 EXAM: Chest x-ray, one view; INFORMATION: Code sepsis; leg infection; IMPRESSION: 1. Significant improvement compared with a study from March 31, 2019: Pulmonary edema and pleural effusions have largely resolved. Ple ural opacification remains above the left costophrenic angle probably r epresenting pleural adhesions. 2. No pulmonary infiltrates. 2. T he heart is moderately enlarged. Location code: [facility] at 1317 Reported and sign ed by: Jameel Alvarez M.D. CC: Caroline Michael DO Technologist: DONNA LINDER RT(R) Trnscrd Date/Time/By: 06/10/2019 (4017) : By: MengGRW Orig Print D/T: S: 06/10/2019 (7297) PAGE 1 Signed Report CBC W/AUTO DIFF 2019-06-10 13:05:00* Test Item Value Reference Range Interpretation Comments WHITE BLOOD CELL (test code = WBC) 6.8 K/mm3 4.5-12.5 N RED BLOOD CELL (test code = RBC) 2.71 mill/mm3 3.7-5.2 L HEMOGLOBIN (test code = HGB) 8.0 gram/dL 11.5-15.5 L HEMATOCRIT (test code = HCT) 26.4 % 36.0-46.0 L MEAN CELL VOLUME (test code = MCV) 97.4 fL 80-98 N MEAN CELL HGB (test code = MCH) 29.5 picogram 27.0-33.0 N MEAN CELL HGB CONCETRATION (test code = MCHC) 30.3 gram/dL 33.0-36. 0 L RED CELL DISTRIBUTION WIDTH (test code = RDW) 18.4 % 11.6-16. 2 H RED CELL DISTRIBUTION WIDTH SD (test code = RDW-SD) 65.4 fL 37 .0-51.0 H PLATELET COUNT (test code = PLT) 96 K/mm3 150-450 L MEAN PLATELET VOLUME (test code = MPV) 11.7 fL 6.7-11.0 H NEUTROPHIL % (test code = NT%) 76.1 % 39.0-69.0 H IMMATURE GRANULOCYTE % (test code = IG%) 0.3 % 0.0-5.0 N LYMPHOCYTE % (test code = LY%) 13.3 % 25.0-55.0 L MONOCYTE % (test code = MO%) 9.0 % 0.0-10.0 N EOSINOPHIL % (test code = EO%) 0.9 % 0.0-5.0 N BASOPHIL % (test code = BA%) 0.4 % 0.0-1.0 N NUCLEATED RBC % (test code = NRBC%) 0.0 % 0-0 N NEUTROPHIL # (test code = NT#) 5.17 K/mm3 1.8-7.7 N IMMATURE GRANULOCYTE # (test code = IG#) 0.02 x10 3/uL 0-0.03 N LYMPHOCYTE # (test code = LY#) 0.90 K/mm3 1.0-5.0 L MONOCYTE # (test code = MO#) 0.61 K/mm3 0-0.8 N EOSINOPHIL # (test code = EO#) 0.06 K/mm3 0.0-0.5 N BASOPHIL # (test code = BA#) 0.03 K/mm3 0.0-0.2 N NUCLEATED RBC # (test code = NRBC#) 0.00 K/mm3 0.0-0.[address] CERVICAL SPINE [id number] 21:48:00 [place] [address] Patient Name: SIOBHAN BARBOSA MR #: [id number] : 1965 Age/Sex: 54/F Req #: [id number] Adm Physician: Ordered by: BERENICE HEARN MD Report #: [id number] Location: ER Room/Bed: Procedure: 110 7-0026 CT/CT CERVICAL SPINE WO Exam Date: Exam Time : REPORT STATUS: Signed History : Fall. Comparison studies: None Technique: Axial images were obtai rosi through the cervical region.. Coronal and sagittal images reconstructed fr om the axial data. Dose modulation, iterative reconstruction, and/or weight ba sed adjustment of the mA/kV was utilized to reduce the radiation dose to as lo w as reasonably achievable. Intravenous contrast: None Findings: Fractures: None. Soft tissue injuries: None. Atlantoaxial articulation: Intact. Alignment: Loss of normal cervical lordosis is either positional or d ue to muscle spasm. No scoliosis. Cervicomedullary junction: No abnormalitie s. The foramen magnum is patent. Soft tissues: Subpleural thickening/scar in l eft lung apex. Vertebrae: Expected postoperative changes from prior post erior cervical spine decompression with multilevel laminectomy that extends fr om C3 to C6. No fractures, infection or neoplasm. Degenerative changes: C3-C4: Moderate degenerative disc disease. Mild left foraminal stenosis due to facet and uncovertebral arthrosis. C5-C6: Moderate degenerative disc diseas e. Mild left foraminal stenosis due to facet and uncovertebral arthrosis. C6 -C7: Moderate degenerative disc disease. Mild left foraminal stenosis due to f acet and uncovertebral arthrosis. C7-T1: Mild to moderate degenerative disc di sease.. IMPRESSION: 1. No acute cervical spine fracture or dislocatio n. Loss of normal cervical lordosis is either positional or due to muscle spas m. 2. Ligament, spinal cord and or vascular abnormalities cannot be exclud ed on the basis of this examination. 3. Multilevel posterior cervical sp ine decompression with laminectomy from C3 to C6. 4. Cervical spondylosi s as detailed above. Signed by: Dr. Shorty Kruger M.D. on 9 9:56 PM Dictated By: SHORTY KRUGER MD 54 Transcribed By: JENNIFER on 05/25/192155 COPY TO: BERENICE HEARN MD CT BRAIN [id number] 21:41:00 [place] [id number] [place] [address] Patient Name: SIOBHAN BARBOSA MR #: [id number] : 1965 Age/Sex: 54/F Req #: [id number] Adm Physician: Ordered by: BERENICE HEARN MD Report #: [id number] Location: ER Room/Bed: Procedure: 110 7-0025 CT/CT BRAIN WO Exam Date: Exam Time: REPORT STATUS: Signed EXAMINATION: Hea d CT without contrast. HISTORY:Fall. COMPARISON:None. TECHNIQU E: Multidetector axial images were obtained from the foramen magnum to the sun kamala without contrast. The images were reconstructed using brain and bone algor ithms. Thin section brain images were reformatted into coronal and sagittal p lanes. Dose modulation, iterative reconstruction, and/or weight based adjustme nt of the mA/kV was utilized to reduce the radiation dose to as low as reasona zelda achievable. Intravenous contrast: None IMAGE QUALITY: Suboptim al evaluation due to motion artifacts. FINDINGS: Skull/scalp: Moderat e right frontal scalp soft tissue edema/hematoma. No radiopaque foreign body o r soft tissue emphysema. No acute depressed or displaced calvarial fracture. Parenchyma: Suboptimal evaluation due to motion artifact, despite the whitaker itation no gross acute hemorrhage, mass or acute major vascular territorial in farct. Nonspecific bilateral frontoparietal few, scattered white matter hypode nsity are likely related to small vessel ischemic changes. Arteries: No de nsity suggestive of thrombosis. Mild atherosclerotic calcification in bilatera l carotid siphon. Dural sinuses: No abnormal density suggestive of throm bosis. Ventricles: Mild compensated dilatation due to volume loss. No acu te hydrocephalus. Extra-axial spaces: Extra-axial cystic lesion in the a nterior aspect of left middle cranial fossa that approximately measures 2.5 x 3.9 x 1.6 cm with regional mass effect on left temporal lobe probably represen ts an arachnoid cyst. Brain volume: Mild generalized cerebral volume los s. Craniocervical junction: No mass, Chiari malformation, or basilar inv agination. Sella: No mass. Paranasal/mastoid sinuses: Imaged portio ns unremarkable. IMPRESSION: 1. Moderate right frontal scalp edema/ hematoma. No acute fracture. 2. Suboptimal evaluation due to motion artifac ts, despite the limitation no gross acute intracranial abnormality. 3. Mi ld supratentorial white matter microvascular ischemic changes and mild general ized cerebral volume loss. 4. Left middle cranial fossa arachnoid cyst. Signed by: Dr. Shorty Kruger M.D. on 05/25/2019 9:48 PM Dictated By: SHORTY KRUGER MD 8 Transcribed By: JENNIFER on 05/25/192147 COPY TO: BERENICE HEARN MD FE W/TOTAL IRON BINDING CAP.2019-04-05 12:00:00* Test Item Value Reference Range Interpretation Comments SERUM IRON (test code = IRON) 152 ug/dL 50-175 N TOTAL IRON BINDING CAPACITY (test code = TIBC) 167 mcg/dL 250-450 L IRON SATURATION (test code = FESAT) 91.02 % 13-45 H VITAMIN [id number] 12:00:00* Test Item Value Reference Range Interpretation Comments VITAMIN B12 (test code = VITB12) 1695 pg/mL 193-986 H FOLIC [id number] 12:00:00* Test Item Value Reference Range Interpretation Comments FOLIC ACID (test code = FOL) 12.0 ng/mL 3.10-17.50 N [id number] 12:00:00* Test Item Value Reference Range Interpretation Comments FERRITIN (test code = CARLEEN) 421 ng/mL 8-388 H CBC W/AUTO [id number] 11:36:00* Test Item Value Reference Range Interpretation Comments WHITE BLOOD CELL (test code = WBC) 4.1 K/mm3 4.5-12.5 L RED BLOOD CELL (test code = RBC) 2.82 mill/mm3 3.7-5.2 L HEMOGLOBIN (test code = HGB) 8.3 gram/dL 11.5-15.5 L HEMATOCRIT (test code = HCT) 27.1 % 36.0-46.0 L MEAN CELL VOLUME (test code = MCV) 96.1 fL 80-98 N MEAN CELL HGB (test code = MCH) 29.4 picogram 27.0-33.0 N MEAN CELL HGB CONCETRATION (test code = MCHC) 30.6 gram/dL 33.0-36. 0 L RED CELL DISTRIBUTION WIDTH (test code = RDW) 17.2 % 11.6-16. 2 H RED CELL DISTRIBUTION WIDTH SD (test code = RDW-SD) 56.7 fL 37 .0-51.0 H PLATELET COUNT (test code = PLT) 17 K/mm3 150-450 LL Results called to [id number] by V.HARI 04/05/19 1044Critical results verified and read back by Nurse? Y MEAN PLATELET VOLUME (test code = MPV) TEST NOT PERFORMED fL 6.7-11 .0 NEUTROPHIL % (test code = NT%) 88.8 % 39.0-69.0 H IMMATURE GRANULOCYTE % (test code = IG%) 0.7 % 0.0-5.0 N LYMPHOCYTE % (test code = LY%) 6.1 % 25.0-55.0 L MONOCYTE % (test code = MO%) 4.4 % 0.0-10.0 N EOSINOPHIL % (test code = EO%) 0.0 % 0.0-5.0 N BASOPHIL % (test code = BA%) 0.0 % 0.0-1.0 N NUCLEATED RBC % (test code = NRBC%) 0.0 % 0-0 N NEUTROPHIL # (test code = NT#) 3.65 K/mm3 1.8-7.7 N IMMATURE GRANULOCYTE # (test code = IG#) 0.03 x10 3/uL 0-0.03 N LYMPHOCYTE # (test code = LY#) 0.25 K/mm3 1.0-5.0 L MONOCYTE # (test code = MO#) 0.18 K/mm3 0-0.8 N EOSINOPHIL # (test code = EO#) 0.00 K/mm3 0.0-0.5 N BASOPHIL # (test code = BA#) 0.00 K/mm3 0.0-0.2 N NUCLEATED RBC # (test code = NRBC#) 0.00 K/mm3 0.0-0.1 N MANUAL DIFF REQUIRED (test code = MDIFF) NO, ONLY SCAN NEEDED DIFFERENTIAL [id number] 11:36:00* Test Item Value Reference Range Interpretation Comments STAIN ACCEPTABILITY (test code = STN ACCEPTABLE) STAIN ACCEPTABLE POLYCHROMASIA (test code = POLC) 1+ HYPOCHROMIA (test code = HYPO) 1+ POIKILOCYTOSIS (test code = POIK) 1+ ANISOCYTOSIS (test code = ANISO) 1+ TEAR DROP CELLS (test code = TEAR) 1+ PLATELET ESTIMATE (test code = PLTEST) DECREASED PLATELET MORPHOLOGY (test code = PLTMORPH) NORMAL BASIC METABOLIC [id number] 11:25:00* Test Item Value Reference Range Interpretation Comments SODIUM (test code = NA) 145 mmol/L 136-145 N POTASSIUM (test code = K) 5.3 mmol/L 3.5-5.1 H CHLORIDE (test code = CL) 105.0 mmol/L 98-107 N CARBON DIOXIDE (test code = CO2) 34.0 mmol/L 21-32 H ANION GAP (test code = GAP) 11.3 10-20 N GLUCOSE (test code = GLU) 98 mg/dL 74-106 N BLOOD UREA NITROGEN (test code = BUN) 62 mg/dL 7-18 H GLOMERULAR FILTRATION RATE (test code = GFR) 29 mL/min >=60 Estimated GFR by using Modified MDRD formula.Chronic kidney disease is defined as either kidney damageor GFR <60 mL/min/1.73 m2 for >3 months. CREATININE (test code = CREAT) 1.80 mg/dL 0.55-1.02 H Note change in reference range due to change in reagent. BUN/CREATININE RATIO (test code = BUN/CREA) 35.0 10-20 H CALCIUM (test code = CA) 8.3 mg/dL 8.5-10.1 L BASIC METABOLIC [id number] 11:21:00* Test Item Value Reference Range Interpretation Comments SODIUM (test code = NA) 145 mmol/L 136-145 N POTASSIUM (test code = K) 5.3 mmol/L 3.5-5.1 H CHLORIDE (test code = CL) 105.0 mmol/L 98-107 N CARBON DIOXIDE (test code = CO2) mmol/L 21-32 ANION GAP (test code = GAP) 10-20 GLUCOSE (test code = GLU) mg/dL 74-106 BLOOD UREA NITROGEN (test code = BUN) mg/dL 7-18 GLOMERULAR FILTRATION RATE (test code = GFR) mL/min >=60 CREATININE (test code = CREAT) mg/dL 0.55-1.02 BUN/CREATININE RATIO (test code = BUN/CREA) 10-20 CALCIUM (test code = CA) mg/dL 8.5-10.1 CBC W/AUTO [id number] 10:45:00* Test Item Value Reference Range Interpretation Comments WHITE BLOOD CELL (test code = WBC) 4.1 K/mm3 4.5-12.5 L RED BLOOD CELL (test code = RBC) 2.82 mill/mm3 3.7-5.2 L HEMOGLOBIN (test code = HGB) 8.3 gram/dL 11.5-15.5 L HEMATOCRIT (test code = HCT) 27.1 % 36.0-46.0 L MEAN CELL VOLUME (test code = MCV) 96.1 fL 80-98 N MEAN CELL HGB (test code = MCH) 29.4 picogram 27.0-33.0 N MEAN CELL HGB CONCETRATION (test code = MCHC) 30.6 gram/dL 33.0-36. 0 L RED CELL DISTRIBUTION WIDTH (test code = RDW) 17.2 % 11.6-16. 2 H RED CELL DISTRIBUTION WIDTH SD (test code = RDW-SD) 56.7 fL 37 .0-51.0 H PLATELET COUNT (test code = PLT) 17 K/mm3 150-450 LL Results called to [id number] by MARIUM 04/05/19 1044Critical results verified and read back by Nurse? Y MEAN PLATELET VOLUME (test code = MPV) TEST NOT PERFORMED fL 6.7-11 .0 NEUTROPHIL % (test code = NT%) 88.8 % 39.0-69.0 H IMMATURE GRANULOCYTE % (test code = IG%) 0.7 % 0.0-5.0 N LYMPHOCYTE % (test code = LY%) 6.1 % 25.0-55.0 L MONOCYTE % (test code = MO%) 4.4 % 0.0-10.0 N EOSINOPHIL % (test code = EO%) 0.0 % 0.0-5.0 N BASOPHIL % (test code = BA%) 0.0 % 0.0-1.0 N NUCLEATED RBC % (test code = NRBC%) 0.0 % 0-0 N NEUTROPHIL # (test code = NT#) 3.65 K/mm3 1.8-7.7 N IMMATURE GRANULOCYTE # (test code = IG#) 0.03 x10 3/uL 0-0.03 N LYMPHOCYTE # (test code = LY#) 0.25 K/mm3 1.0-5.0 L MONOCYTE # (test code = MO#) 0.18 K/mm3 0-0.8 N EOSINOPHIL # (test code = EO#) 0.00 K/mm3 0.0-0.5 N BASOPHIL # (test code = BA#) 0.00 K/mm3 0.0-0.2 N NUCLEATED RBC # (test code = NRBC#) 0.00 K/mm3 0.0-0.1 N MANUAL DIFF REQUIRED (test code = MDIFF) NO, ONLY SCAN NEEDED DIFFERENTIAL [id number] 10:45:00* Test Item Value Reference Range Interpretation Comments STAIN ACCEPTABILITY (test code = STN ACCEPTABLE) CABOT RINGS (test code = CAB) MORPHOLOGY COMMENT (test code = MOC) PLATELET ESTIMATE (test code = PLTEST) PLATELET MORPHOLOGY (test code = PLTMORPH) CBC W/AUTO [id number] 10:45:00* Test Item Value Reference Range Interpretation Comments WHITE BLOOD CELL (test code = WBC) 4.1 K/mm3 4.5-12.5 L RED BLOOD CELL (test code = RBC) 2.82 mill/mm3 3.7-5.2 L HEMOGLOBIN (test code = HGB) 8.3 gram/dL 11.5-15.5 L HEMATOCRIT (test code = HCT) 27.1 % 36.0-46.0 L MEAN CELL VOLUME (test code = MCV) 96.1 fL 80-98 N MEAN CELL HGB (test code = MCH) 29.4 picogram 27.0-33.0 N MEAN CELL HGB CONCETRATION (test code = MCHC) 30.6 gram/dL 33.0-36. 0 L RED CELL DISTRIBUTION WIDTH (test code = RDW) 17.2 % 11.6-16. 2 H RED CELL DISTRIBUTION WIDTH SD (test code = RDW-SD) 56.7 fL 37 .0-51.0 H PLATELET COUNT (test code = PLT) 17 K/mm3 150-450 LL Results called to [id number] by [email or web address] 04/05/19 [id number] results verified and read back by Nurse? Y MEAN PLATELET VOLUME (test code = MPV) TEST NOT PERFORMED fL 6.7-11 .0 NEUTROPHIL % (test code = NT%) 88.8 % 39.0-69.0 H IMMATURE GRANULOCYTE % (test code = IG%) 0.7 % 0.0-5.0 N LYMPHOCYTE % (test code = LY%) 6.1 % 25.0-55.0 L MONOCYTE % (test code = MO%) 4.4 % 0.0-10.0 N EOSINOPHIL % (test code = EO%) 0.0 % 0.0-5.0 N BASOPHIL % (test code = BA%) 0.0 % 0.0-1.0 N NUCLEATED RBC % (test code = NRBC%) 0.0 % 0-0 N NEUTROPHIL # (test code = NT#) 3.65 K/mm3 1.8-7.7 N IMMATURE GRANULOCYTE # (test code = IG#) 0.03 x10 3/uL 0-0.03 N LYMPHOCYTE # (test code = LY#) 0.25 K/mm3 1.0-5.0 L MONOCYTE # (test code = MO#) 0.18 K/mm3 0-0.8 N EOSINOPHIL # (test code = EO#) 0.00 K/mm3 0.0-0.5 N BASOPHIL # (test code = BA#) 0.00 K/mm3 0.0-0.2 N NUCLEATED RBC # (test code = NRBC#) 0.00 K/mm3 0.0-0.1 N MANUAL DIFF REQUIRED (test code = MDIFF) NO, ONLY SCAN NEEDED DIFFERENTIAL [id number] 10:45:00* Test Item Value Reference Range Interpretation Comments STAIN ACCEPTABILITY (test code = STN ACCEPTABLE) MORPHOLOGY COMMENT (test code = MOC) PLATELET ESTIMATE (test code = PLTEST) PLATELET MORPHOLOGY (test code = PLTMORPH) CBC W/AUTO [id number] 10:45:00* Test Item Value Reference Range Interpretation Comments WHITE BLOOD CELL (test code = WBC) 4.1 K/mm3 4.5-12.5 L RED BLOOD CELL (test code = RBC) 2.82 mill/mm3 3.7-5.2 L HEMOGLOBIN (test code = HGB) 8.3 gram/dL 11.5-15.5 L HEMATOCRIT (test code = HCT) 27.1 % 36.0-46.0 L MEAN CELL VOLUME (test code = MCV) 96.1 fL 80-98 N MEAN CELL HGB (test code = MCH) 29.4 picogram 27.0-33.0 N MEAN CELL HGB CONCETRATION (test code = MCHC) 30.6 gram/dL 33.0-36. 0 L RED CELL DISTRIBUTION WIDTH (test code = RDW) 17.2 % 11.6-16. 2 H RED CELL DISTRIBUTION WIDTH SD (test code = RDW-SD) 56.7 fL 37 .0-51.0 H PLATELET COUNT (test code = PLT) 17 K/mm3 150-450 LL Results called to [id number] by VVARGHESE.ISRA 04/05/19 1044Critical results verified and read back by Nurse? Y MEAN PLATELET VOLUME (test code = MPV) TEST NOT PERFORMED fL 6.7-11 .0 NEUTROPHIL % (test code = NT%) 88.8 % 39.0-69.0 H IMMATURE GRANULOCYTE % (test code = IG%) 0.7 % 0.0-5.0 N LYMPHOCYTE % (test code = LY%) 6.1 % 25.0-55.0 L MONOCYTE % (test code = MO%) 4.4 % 0.0-10.0 N EOSINOPHIL % (test code = EO%) 0.0 % 0.0-5.0 N BASOPHIL % (test code = BA%) 0.0 % 0.0-1.0 N NUCLEATED RBC % (test code = NRBC%) 0.0 % 0-0 N NEUTROPHIL # (test code = NT#) 3.65 K/mm3 1.8-7.7 N IMMATURE GRANULOCYTE # (test code = IG#) 0.03 x10 3/uL 0-0.03 N LYMPHOCYTE # (test code = LY#) 0.25 K/mm3 1.0-5.0 L MONOCYTE # (test code = MO#) 0.18 K/mm3 0-0.8 N EOSINOPHIL # (test code = EO#) 0.00 K/mm3 0.0-0.5 N BASOPHIL # (test code = BA#) 0.00 K/mm3 0.0-0.2 N NUCLEATED RBC # (test code = NRBC#) 0.00 K/mm3 0.0-0.1 N MANUAL DIFF REQUIRED (test code = MDIFF) NO, ONLY SCAN NEEDED DIFFERENTIAL [id number] 10:45:00* Test Item Value Reference Range Interpretation Comments STAIN ACCEPTABILITY (test code = STN ACCEPTABLE) MORPHOLOGY COMMENT (test code = MOC) PLATELET ESTIMATE (test code = PLTEST) PLATELET MORPHOLOGY (test code = PLTMORPH) CBC W/AUTO [id number] 10:45:00* Test Item Value Reference Range Interpretation Comments WHITE BLOOD CELL (test code = WBC) 4.1 K/mm3 4.5-12.5 L RED BLOOD CELL (test code = RBC) 2.82 mill/mm3 3.7-5.2 L HEMOGLOBIN (test code = HGB) 8.3 gram/dL 11.5-15.5 L HEMATOCRIT (test code = HCT) 27.1 % 36.0-46.0 L MEAN CELL VOLUME (test code = MCV) 96.1 fL 80-98 N MEAN CELL HGB (test code = MCH) 29.4 picogram 27.0-33.0 N MEAN CELL HGB CONCETRATION (test code = MCHC) 30.6 gram/dL 33.0-36. 0 L RED CELL DISTRIBUTION WIDTH (test code = RDW) 17.2 % 11.6-16. 2 H RED CELL DISTRIBUTION WIDTH SD (test code = RDW-SD) 56.7 fL 37 .0-51.0 H PLATELET COUNT (test code = PLT) 17 K/mm3 150-450 LL Results called to [id number] by Ninfa.HARI 04/05/19 1044Critical results verified and read back by Nurse? Y MEAN PLATELET VOLUME (test code = MPV) TEST NOT PERFORMED fL 6.7-11 .0 NEUTROPHIL % (test code = NT%) 88.8 % 39.0-69.0 H IMMATURE GRANULOCYTE % (test code = IG%) 0.7 % 0.0-5.0 N LYMPHOCYTE % (test code = LY%) 6.1 % 25.0-55.0 L MONOCYTE % (test code = MO%) 4.4 % 0.0-10.0 N EOSINOPHIL % (test code = EO%) 0.0 % 0.0-5.0 N BASOPHIL % (test code = BA%) 0.0 % 0.0-1.0 N NUCLEATED RBC % (test code = NRBC%) 0.0 % 0-0 N NEUTROPHIL # (test code = NT#) 3.65 K/mm3 1.8-7.7 N IMMATURE GRANULOCYTE # (test code = IG#) 0.03 x10 3/uL 0-0.03 N LYMPHOCYTE # (test code = LY#) 0.25 K/mm3 1.0-5.0 L MONOCYTE # (test code = MO#) 0.18 K/mm3 0-0.8 N EOSINOPHIL # (test code = EO#) 0.00 K/mm3 0.0-0.5 N BASOPHIL # (test code = BA#) 0.00 K/mm3 0.0-0.2 N NUCLEATED RBC # (test code = NRBC#) 0.00 K/mm3 0.0-0.1 N MANUAL DIFF REQUIRED (test code = MDIFF) NO, ONLY SCAN NEEDED DIFFERENTIAL [id number] 10:45:00* Test Item Value Reference Range Interpretation Comments STAIN ACCEPTABILITY (test code = STN ACCEPTABLE) CABOT RINGS (test code = CAB) MORPHOLOGY COMMENT (test code = MOC) PLATELET ESTIMATE (test code = PLTEST) PLATELET MORPHOLOGY (test code = PLTMORPH) CBC W/AUTO [id number] 14:11:00* Test Item Value Reference Range Interpretation Comments WHITE BLOOD CELL (test code = WBC) 5.2 K/mm3 4.5-12.5 N RED BLOOD CELL (test code = RBC) 3.02 mill/mm3 3.7-5.2 L HEMOGLOBIN (test code = HGB) 8.8 gram/dL 11.5-15.5 L HEMATOCRIT (test code = HCT) 28.7 % 36.0-46.0 L MEAN CELL VOLUME (test code = MCV) 95.0 fL 80-98 N MEAN CELL HGB (test code = MCH) 29.1 picogram 27.0-33.0 N MEAN CELL HGB CONCETRATION (test code = MCHC) 30.7 gram/dL 33.0-36. 0 L RED CELL DISTRIBUTION WIDTH (test code = RDW) 17.3 % 11.6-16. 2 H RED CELL DISTRIBUTION WIDTH SD (test code = RDW-SD) 55.7 fL 37 .0-51.0 H PLATELET COUNT (test code = PLT) 17 K/mm3 150-450 LL Results called to [id number] by [facility] 04/04/19 1310Critical results verified and read back by Nurse? Y NEUTROPHIL % (test code = NT%) 93.2 % 39.0-69.0 H IMMATURE GRANULOCYTE % (test code = IG%) 0.8 % 0.0-5.0 N LYMPHOCYTE % (test code = LY%) 3.3 % 25.0-55.0 L MONOCYTE % (test code = MO%) 2.7 % 0.0-10.0 N EOSINOPHIL % (test code = EO%) 0.0 % 0.0-5.0 N BASOPHIL % (test code = BA%) 0.0 % 0.0-1.0 N NUCLEATED RBC % (test code = NRBC%) 0.0 % 0-0 N NEUTROPHIL # (test code = NT#) 4.81 K/mm3 1.8-7.7 N IMMATURE GRANULOCYTE # (test code = IG#) 0.04 x10 3/uL 0-0.03 H LYMPHOCYTE # (test code = LY#) 0.17 K/mm3 1.0-5.0 L MONOCYTE # (test code = MO#) 0.14 K/mm3 0-0.8 N EOSINOPHIL # (test code = EO#) 0.00 K/mm3 0.0-0.5 N BASOPHIL # (test code = BA#) 0.00 K/mm3 0.0-0.2 N NUCLEATED RBC # (test code = NRBC#) 0.00 K/mm3 0.0-0.1 N MANUAL DIFF REQUIRED (test code = MDIFF) NO, ONLY SCAN NEEDED DIFFERENTIAL [id number] 14:11:00* Test Item Value Reference Range Interpretation Comments STAIN ACCEPTABILITY (test code = STN ACCEPTABLE) STAIN ACCEPTABLE ANISOCYTOSIS (test code = ANISO) 2+ MACROCYTOSIS (test code = MACR) 1+ PLATELET ESTIMATE (test code = PLTEST) ADEQUATE PLATELET MORPHOLOGY (test code = PLTMORPH) NORMAL BASIC METABOLIC [id number] 13:35:00* Test Item Value Reference Range Interpretation Comments SODIUM (test code = NA) 145 mmol/L 136-145 N POTASSIUM (test code = K) 5.6 mmol/L 3.5-5.1 H CHLORIDE (test code = CL) 104.0 mmol/L 98-107 N CARBON DIOXIDE (test code = CO2) 31.0 mmol/L 21-32 N ANION GAP (test code = GAP) 15.6 10-20 N GLUCOSE (test code = GLU) 152 mg/dL 74-106 H BLOOD UREA NITROGEN (test code = BUN) 65 mg/dL 7-18 H GLOMERULAR FILTRATION RATE (test code = GFR) 27 mL/min >=60 Estimated GFR by using Modified MDRD formula.Chronic kidney disease is defined as either kidney damageor GFR <60 mL/min/1.73 m2 for >3 months. CREATININE (test code = CREAT) 1.90 mg/dL 0.55-1.02 H Note change in reference range due to change in reagent. BUN/CREATININE RATIO (test code = BUN/CREA) 33.9 10-20 H CALCIUM (test code = CA) 8.0 mg/dL 8.5-10.1 L CBC W/AUTO [id number] 13:11:00* Test Item Value Reference Range Interpretation Comments WHITE BLOOD CELL (test code = WBC) 5.2 K/mm3 4.5-12.5 N RED BLOOD CELL (test code = RBC) 3.02 mill/mm3 3.7-5.2 L HEMOGLOBIN (test code = HGB) 8.8 gram/dL 11.5-15.5 L HEMATOCRIT (test code = HCT) 28.7 % 36.0-46.0 L MEAN CELL VOLUME (test code = MCV) 95.0 fL 80-98 N MEAN CELL HGB (test code = MCH) 29.1 picogram 27.0-33.0 N MEAN CELL HGB CONCETRATION (test code = MCHC) 30.7 gram/dL 33.0-36. 0 L RED CELL DISTRIBUTION WIDTH (test code = RDW) 17.3 % 11.6-16. 2 H RED CELL DISTRIBUTION WIDTH SD (test code = RDW-SD) 55.7 fL 37 .0-51.0 H PLATELET COUNT (test code = PLT) 17 K/mm3 150-450 LL Results called to [place] [id number] by [facility] 04/04/19 1310Critical results verified and read back by Nurse? Y NEUTROPHIL % (test code = NT%) 93.2 % 39.0-69.0 H IMMATURE GRANULOCYTE % (test code = IG%) 0.8 % 0.0-5.0 N LYMPHOCYTE % (test code = LY%) 3.3 % 25.0-55.0 L MONOCYTE % (test code = MO%) 2.7 % 0.0-10.0 N EOSINOPHIL % (test code = EO%) 0.0 % 0.0-5.0 N BASOPHIL % (test code = BA%) 0.0 % 0.0-1.0 N NUCLEATED RBC % (test code = NRBC%) 0.0 % 0-0 N NEUTROPHIL # (test code = NT#) 4.81 K/mm3 1.8-7.7 N IMMATURE GRANULOCYTE # (test code = IG#) 0.04 x10 3/uL 0-0.03 H LYMPHOCYTE # (test code = LY#) 0.17 K/mm3 1.0-5.0 L MONOCYTE # (test code = MO#) 0.14 K/mm3 0-0.8 N EOSINOPHIL # (test code = EO#) 0.00 K/mm3 0.0-0.5 N BASOPHIL # (test code = BA#) 0.00 K/mm3 0.0-0.2 N NUCLEATED RBC # (test code = NRBC#) 0.00 K/mm3 0.0-0.1 N MANUAL DIFF REQUIRED (test code = MDIFF) NO, ONLY SCAN NEEDED DIFFERENTIAL [id number] 13:11:00* Test Item Value Reference Range Interpretation Comments STAIN ACCEPTABILITY (test code = STN ACCEPTABLE) CABOT RINGS (test code = CAB) MORPHOLOGY COMMENT (test code = MOC) PLATELET ESTIMATE (test code = PLTEST) PLATELET MORPHOLOGY (test code = PLTMORPH) CBC W/AUTO [id number] 13:11:00* Test Item Value Reference Range Interpretation Comments WHITE BLOOD CELL (test code = WBC) 5.2 K/mm3 4.5-12.5 N RED BLOOD CELL (test code = RBC) 3.02 mill/mm3 3.7-5.2 L HEMOGLOBIN (test code = HGB) 8.8 gram/dL 11.5-15.5 L HEMATOCRIT (test code = HCT) 28.7 % 36.0-46.0 L MEAN CELL VOLUME (test code = MCV) 95.0 fL 80-98 N MEAN CELL HGB (test code = MCH) 29.1 picogram 27.0-33.0 N MEAN CELL HGB CONCETRATION (test code = MCHC) 30.7 gram/dL 33.0-36. 0 L RED CELL DISTRIBUTION WIDTH (test code = RDW) 17.3 % 11.6-16. 2 H RED CELL DISTRIBUTION WIDTH SD (test code = RDW-SD) 55.7 fL 37 .0-51.0 H PLATELET COUNT (test code = PLT) 17 K/mm3 150-450 LL Results called to [id number] by [facility] 04/04/19 1310Critical results verified and read back by Nurse? Y NEUTROPHIL % (test code = NT%) 93.2 % 39.0-69.0 H IMMATURE GRANULOCYTE % (test code = IG%) 0.8 % 0.0-5.0 N LYMPHOCYTE % (test code = LY%) 3.3 % 25.0-55.0 L MONOCYTE % (test code = MO%) 2.7 % 0.0-10.0 N EOSINOPHIL % (test code = EO%) 0.0 % 0.0-5.0 N BASOPHIL % (test code = BA%) 0.0 % 0.0-1.0 N NUCLEATED RBC % (test code = NRBC%) 0.0 % 0-0 N NEUTROPHIL # (test code = NT#) 4.81 K/mm3 1.8-7.7 N IMMATURE GRANULOCYTE # (test code = IG#) 0.04 x10 3/uL 0-0.03 H LYMPHOCYTE # (test code = LY#) 0.17 K/mm3 1.0-5.0 L MONOCYTE # (test code = MO#) 0.14 K/mm3 0-0.8 N EOSINOPHIL # (test code = EO#) 0.00 K/mm3 0.0-0.5 N BASOPHIL # (test code = BA#) 0.00 K/mm3 0.0-0.2 N NUCLEATED RBC # (test code = NRBC#) 0.00 K/mm3 0.0-0.1 N MANUAL DIFF REQUIRED (test code = MDIFF) NO, ONLY SCAN NEEDED DIFFERENTIAL [id number] 13:11:00* Test Item Value Reference Range Interpretation Comments STAIN ACCEPTABILITY (test code = STN ACCEPTABLE) CABOT RINGS (test code = CAB) MORPHOLOGY COMMENT (test code = MOC) PLATELET ESTIMATE (test code = PLTEST) PLATELET MORPHOLOGY (test code = PLTMORPH) CBC W/AUTO [id number] 13:11:00* Test Item Value Reference Range Interpretation Comments WHITE BLOOD CELL (test code = WBC) 5.2 K/mm3 4.5-12.5 N RED BLOOD CELL (test code = RBC) 3.02 mill/mm3 3.7-5.2 L HEMOGLOBIN (test code = HGB) 8.8 gram/dL 11.5-15.5 L HEMATOCRIT (test code = HCT) 28.7 % 36.0-46.0 L MEAN CELL VOLUME (test code = MCV) 95.0 fL 80-98 N MEAN CELL HGB (test code = MCH) 29.1 picogram 27.0-33.0 N MEAN CELL HGB CONCETRATION (test code = MCHC) 30.7 gram/dL 33.0-36. 0 L RED CELL DISTRIBUTION WIDTH (test code = RDW) 17.3 % 11.6-16. 2 H RED CELL DISTRIBUTION WIDTH SD (test code = RDW-SD) 55.7 fL 37 .0-51.0 H PLATELET COUNT (test code = PLT) 17 K/mm3 150-450 LL Results called to [id number] by AMANDA 04/04/19 1310Critical results verified and read back by Nurse? Y NEUTROPHIL % (test code = NT%) 93.2 % 39.0-69.0 H IMMATURE GRANULOCYTE % (test code = IG%) 0.8 % 0.0-5.0 N LYMPHOCYTE % (test code = LY%) 3.3 % 25.0-55.0 L MONOCYTE % (test code = MO%) 2.7 % 0.0-10.0 N EOSINOPHIL % (test code = EO%) 0.0 % 0.0-5.0 N BASOPHIL % (test code = BA%) 0.0 % 0.0-1.0 N NUCLEATED RBC % (test code = NRBC%) 0.0 % 0-0 N NEUTROPHIL # (test code = NT#) 4.81 K/mm3 1.8-7.7 N IMMATURE GRANULOCYTE # (test code = IG#) 0.04 x10 3/uL 0-0.03 H LYMPHOCYTE # (test code = LY#) 0.17 K/mm3 1.0-5.0 L MONOCYTE # (test code = MO#) 0.14 K/mm3 0-0.8 N EOSINOPHIL # (test code = EO#) 0.00 K/mm3 0.0-0.5 N BASOPHIL # (test code = BA#) 0.00 K/mm3 0.0-0.2 N NUCLEATED RBC # (test code = NRBC#) 0.00 K/mm3 0.0-0.1 N MANUAL DIFF REQUIRED (test code = MDIFF) NO, ONLY SCAN NEEDED DIFFERENTIAL [id number] 13:11:00* Test Item Value Reference Range Interpretation Comments STAIN ACCEPTABILITY (test code = STN ACCEPTABLE) MORPHOLOGY COMMENT (test code = MOC) PLATELET ESTIMATE (test code = PLTEST) PLATELET MORPHOLOGY (test code = PLTMORPH) CBC W/AUTO [id number] 13:11:00* Test Item Value Reference Range Interpretation Comments WHITE BLOOD CELL (test code = WBC) 5.2 K/mm3 4.5-12.5 N RED BLOOD CELL (test code = RBC) 3.02 mill/mm3 3.7-5.2 L HEMOGLOBIN (test code = HGB) 8.8 gram/dL 11.5-15.5 L HEMATOCRIT (test code = HCT) 28.7 % 36.0-46.0 L MEAN CELL VOLUME (test code = MCV) 95.0 fL 80-98 N MEAN CELL HGB (test code = MCH) 29.1 picogram 27.0-33.0 N MEAN CELL HGB CONCETRATION (test code = MCHC) 30.7 gram/dL 33.0-36. 0 L RED CELL DISTRIBUTION WIDTH (test code = RDW) 17.3 % 11.6-16. 2 H RED CELL DISTRIBUTION WIDTH SD (test code = RDW-SD) 55.7 fL 37 .0-51.0 H PLATELET COUNT (test code = PLT) 17 K/mm3 150-450 LL Results called to [place] [id number] by [facility] 04/04/19 1310Critical results verified and read back by Nurse? Y NEUTROPHIL % (test code = NT%) 93.2 % 39.0-69.0 H IMMATURE GRANULOCYTE % (test code = IG%) 0.8 % 0.0-5.0 N LYMPHOCYTE % (test code = LY%) 3.3 % 25.0-55.0 L MONOCYTE % (test code = MO%) 2.7 % 0.0-10.0 N EOSINOPHIL % (test code = EO%) 0.0 % 0.0-5.0 N BASOPHIL % (test code = BA%) 0.0 % 0.0-1.0 N NUCLEATED RBC % (test code = NRBC%) 0.0 % 0-0 N NEUTROPHIL # (test code = NT#) 4.81 K/mm3 1.8-7.7 N IMMATURE GRANULOCYTE # (test code = IG#) 0.04 x10 3/uL 0-0.03 H LYMPHOCYTE # (test code = LY#) 0.17 K/mm3 1.0-5.0 L MONOCYTE # (test code = MO#) 0.14 K/mm3 0-0.8 N EOSINOPHIL # (test code = EO#) 0.00 K/mm3 0.0-0.5 N BASOPHIL # (test code = BA#) 0.00 K/mm3 0.0-0.2 N NUCLEATED RBC # (test code = NRBC#) 0.00 K/mm3 0.0-0.1 N MANUAL DIFF REQUIRED (test code = MDIFF) NO, ONLY SCAN NEEDED DIFFERENTIAL [id number] 13:11:00* Test Item Value Reference Range Interpretation Comments STAIN ACCEPTABILITY (test code = STN ACCEPTABLE) CABOT RINGS (test code = CAB) MORPHOLOGY COMMENT (test code = MOC) PLATELET ESTIMATE (test code = PLTEST) PLATELET MORPHOLOGY (test code = PLTMORPH) CBC W/AUTO [id number] 12:34:00* Test Item Value Reference Range Interpretation Comments WHITE BLOOD CELL (test code = WBC) 4.7 K/mm3 4.5-12.5 N RED BLOOD CELL (test code = RBC) 2.86 mill/mm3 3.7-5.2 L HEMOGLOBIN (test code = HGB) 8.3 gram/dL 11.5-15.5 L HEMATOCRIT (test code = HCT) 27.2 % 36.0-46.0 L MEAN CELL VOLUME (test code = MCV) 95.1 fL 80-98 N MEAN CELL HGB (test code = MCH) 29.0 picogram 27.0-33.0 N MEAN CELL HGB CONCETRATION (test code = MCHC) 30.5 gram/dL 33.0-36. 0 L RED CELL DISTRIBUTION WIDTH (test code = RDW) 17.3 % 11.6-16. 2 H RED CELL DISTRIBUTION WIDTH SD (test code = RDW-SD) 56.0 fL 37 .0-51.0 H PLATELET COUNT (test code = PLT) 19 K/mm3 150-450 LL Results called to [id number] by V.LAB.CF2 04/02/19 1006Critical results verified and read back by Nurse? Y MEAN PLATELET VOLUME (test code = MPV) TEST NOT PERFORMED fL 6.7-11 .0 NEUTROPHIL % (test code = NT%) 93.0 % 39.0-69.0 H IMMATURE GRANULOCYTE % (test code = IG%) 1.1 % 0.0-5.0 N LYMPHOCYTE % (test code = LY%) 3.6 % 25.0-55.0 L MONOCYTE % (test code = MO%) 2.3 % 0.0-10.0 N EOSINOPHIL % (test code = EO%) 0.0 % 0.0-5.0 N BASOPHIL % (test code = BA%) 0.0 % 0.0-1.0 N NUCLEATED RBC % (test code = NRBC%) 0.0 % 0-0 N NEUTROPHIL # (test code = NT#) 4.38 K/mm3 1.8-7.7 N IMMATURE GRANULOCYTE # (test code = IG#) 0.05 x10 3/uL 0-0.03 H LYMPHOCYTE # (test code = LY#) 0.17 K/mm3 1.0-5.0 L MONOCYTE # (test code = MO#) 0.11 K/mm3 0-0.8 N EOSINOPHIL # (test code = EO#) 0.00 K/mm3 0.0-0.5 N BASOPHIL # (test code = BA#) 0.00 K/mm3 0.0-0.2 N NUCLEATED RBC # (test code = NRBC#) 0.00 K/mm3 0.0-0.1 N MANUAL DIFF REQUIRED (test code = MDIFF) NO, ONLY SCAN NEEDED COME BACK LATER [facility] V.LAB.EP 04/02/19 0601DIFFERENTIAL [id number] 12:34:00* Test Item Value Reference Range Interpretation Comments STAIN ACCEPTABILITY (test code = STN ACCEPTABLE) STAIN ACCEPTABLE HYPOCHROMIA (test code = HYPO) 1+ BASOPHILIC STIPPLING (test code = STP) RARE ANISOCYTOSIS (test code = ANISO) 1+ MACROCYTOSIS (test code = MACR) 1+ ELLIPTOCYTES (test code = ELL) 1+ PLATELET ESTIMATE (test code = PLTEST) DECREASED PLATELET MORPHOLOGY (test code = PLTMORPH) NORMAL OCCASIONAL LARGE PLATELETS COME BACK LATER [facility] V.LAB.EP 04/02/19 0601PATHOLOGISTS [id number] 12:34:00* Test Item Value Reference Range Interpretation Comments PATHOLOGISTS FINDINGS (test code = PATH) COMMENTS PATH NOTES Reviewed by DANNY Vital 04/03/2019AnemiaThrombocytopeniaSLIDE REVIEWED BY PATHOLOGIST COME BACK LATER [facility] V.LAB.EP 04/02/19 0601CBC W/AUTO [id number] 11:57:00* Test Item Value Reference Range Interpretation Comments WHITE BLOOD CELL (test code = WBC) 5.3 K/mm3 4.5-12.5 N RED BLOOD CELL (test code = RBC) 2.91 mill/mm3 3.7-5.2 L HEMOGLOBIN (test code = HGB) 8.5 gram/dL 11.5-15.5 L HEMATOCRIT (test code = HCT) 28.1 % 36.0-46.0 L MEAN CELL VOLUME (test code = MCV) 96.6 fL 80-98 N MEAN CELL HGB (test code = MCH) 29.2 picogram 27.0-33.0 N MEAN CELL HGB CONCETRATION (test code = MCHC) 30.2 gram/dL 33.0-36. 0 L RED CELL DISTRIBUTION WIDTH (test code = RDW) 17.5 % 11.6-16. 2 H RED CELL DISTRIBUTION WIDTH SD (test code = RDW-SD) 57.6 fL 37 .0-51.0 H PLATELET COUNT (test code = PLT) 19 K/mm3 150-450 LL esults called to [id number] by ENMA 04/03/19 1138Critical results verified and read back by Nurse? Y NEUTROPHIL % (test code = NT%) 93.4 % 39.0-69.0 H IMMATURE GRANULOCYTE % (test code = IG%) 1.1 % 0.0-5.0 N LYMPHOCYTE % (test code = LY%) 3.0 % 25.0-55.0 L MONOCYTE % (test code = MO%) 2.5 % 0.0-10.0 N EOSINOPHIL % (test code = EO%) 0.0 % 0.0-5.0 N BASOPHIL % (test code = BA%) 0.0 % 0.0-1.0 N NUCLEATED RBC % (test code = NRBC%) 0.0 % 0-0 N NEUTROPHIL # (test code = NT#) 4.93 K/mm3 1.8-7.7 N IMMATURE GRANULOCYTE # (test code = IG#) 0.06 x10 3/uL 0-0.03 H LYMPHOCYTE # (test code = LY#) 0.16 K/mm3 1.0-5.0 L MONOCYTE # (test code = MO#) 0.13 K/mm3 0-0.8 N EOSINOPHIL # (test code = EO#) 0.00 K/mm3 0.0-0.5 N BASOPHIL # (test code = BA#) 0.00 K/mm3 0.0-0.2 N NUCLEATED RBC # (test code = NRBC#) 0.00 K/mm3 0.0-0.1 N MANUAL DIFF REQUIRED (test code = MDIFF) NO, ONLY SCAN NEEDED DIFFERENTIAL [id number] 11:57:00* Test Item Value Reference Range Interpretation Comments STAIN ACCEPTABILITY (test code = STN ACCEPTABLE) STAIN ACCEPTABLE ANISOCYTOSIS (test code = ANISO) 2+ MACROCYTOSIS (test code = MACR) 1+ PLATELET ESTIMATE (test code = PLTEST) DECREASED PLATELET MORPHOLOGY (test code = PLTMORPH) SIZE VARIABLE CBC W/AUTO [id number] 11:45:00* Test Item Value Reference Range Interpretation Comments WHITE BLOOD CELL (test code = WBC) 5.3 K/mm3 4.5-12.5 N RED BLOOD CELL (test code = RBC) 2.91 mill/mm3 3.7-5.2 L HEMOGLOBIN (test code = HGB) 8.5 gram/dL 11.5-15.5 L HEMATOCRIT (test code = HCT) 28.1 % 36.0-46.0 L MEAN CELL VOLUME (test code = MCV) 96.6 fL 80-98 N MEAN CELL HGB (test code = MCH) 29.2 picogram 27.0-33.0 N MEAN CELL HGB CONCETRATION (test code = MCHC) 30.2 gram/dL 33.0-36. 0 L RED CELL DISTRIBUTION WIDTH (test code = RDW) 17.5 % 11.6-16. 2 H RED CELL DISTRIBUTION WIDTH SD (test code = RDW-SD) 57.6 fL 37 .0-51.0 H PLATELET COUNT (test code = PLT) 19 K/mm3 150-450 LL esults called to [id number] by ENMA 04/03/19 1138Critical results verified and read back by Nurse? Y NEUTROPHIL % (test code = NT%) 93.4 % 39.0-69.0 H IMMATURE GRANULOCYTE % (test code = IG%) 1.1 % 0.0-5.0 N LYMPHOCYTE % (test code = LY%) 3.0 % 25.0-55.0 L MONOCYTE % (test code = MO%) 2.5 % 0.0-10.0 N EOSINOPHIL % (test code = EO%) 0.0 % 0.0-5.0 N BASOPHIL % (test code = BA%) 0.0 % 0.0-1.0 N NUCLEATED RBC % (test code = NRBC%) 0.0 % 0-0 N NEUTROPHIL # (test code = NT#) 4.93 K/mm3 1.8-7.7 N IMMATURE GRANULOCYTE # (test code = IG#) 0.06 x10 3/uL 0-0.03 H LYMPHOCYTE # (test code = LY#) 0.16 K/mm3 1.0-5.0 L MONOCYTE # (test code = MO#) 0.13 K/mm3 0-0.8 N EOSINOPHIL # (test code = EO#) 0.00 K/mm3 0.0-0.5 N BASOPHIL # (test code = BA#) 0.00 K/mm3 0.0-0.2 N NUCLEATED RBC # (test code = NRBC#) 0.00 K/mm3 0.0-0.1 N MANUAL DIFF REQUIRED (test code = MDIFF) NO, ONLY SCAN NEEDED DIFFERENTIAL [id number] 11:45:00* Test Item Value Reference Range Interpretation Comments STAIN ACCEPTABILITY (test code = STN ACCEPTABLE) CABOT RINGS (test code = CAB) MORPHOLOGY COMMENT (test code = MOC) PLATELET ESTIMATE (test code = PLTEST) PLATELET MORPHOLOGY (test code = PLTMORPH) CBC W/AUTO [id number] 11:45:00* Test Item Value Reference Range Interpretation Comments WHITE BLOOD CELL (test code = WBC) 5.3 K/mm3 4.5-12.5 N RED BLOOD CELL (test code = RBC) 2.91 mill/mm3 3.7-5.2 L HEMOGLOBIN (test code = HGB) 8.5 gram/dL 11.5-15.5 L HEMATOCRIT (test code = HCT) 28.1 % 36.0-46.0 L MEAN CELL VOLUME (test code = MCV) 96.6 fL 80-98 N MEAN CELL HGB (test code = MCH) 29.2 picogram 27.0-33.0 N MEAN CELL HGB CONCETRATION (test code = MCHC) 30.2 gram/dL 33.0-36. 0 L RED CELL DISTRIBUTION WIDTH (test code = RDW) 17.5 % 11.6-16. 2 H RED CELL DISTRIBUTION WIDTH SD (test code = RDW-SD) 57.6 fL 37 .0-51.0 H PLATELET COUNT (test code = PLT) 19 K/mm3 150-450 LL esults called to [id number] by ENMA 04/03/19 1138Critical results verified and read back by Nurse? Y NEUTROPHIL % (test code = NT%) 93.4 % 39.0-69.0 H IMMATURE GRANULOCYTE % (test code = IG%) 1.1 % 0.0-5.0 N LYMPHOCYTE % (test code = LY%) 3.0 % 25.0-55.0 L MONOCYTE % (test code = MO%) 2.5 % 0.0-10.0 N EOSINOPHIL % (test code = EO%) 0.0 % 0.0-5.0 N BASOPHIL % (test code = BA%) 0.0 % 0.0-1.0 N NUCLEATED RBC % (test code = NRBC%) 0.0 % 0-0 N NEUTROPHIL # (test code = NT#) 4.93 K/mm3 1.8-7.7 N IMMATURE GRANULOCYTE # (test code = IG#) 0.06 x10 3/uL 0-0.03 H LYMPHOCYTE # (test code = LY#) 0.16 K/mm3 1.0-5.0 L MONOCYTE # (test code = MO#) 0.13 K/mm3 0-0.8 N EOSINOPHIL # (test code = EO#) 0.00 K/mm3 0.0-0.5 N BASOPHIL # (test code = BA#) 0.00 K/mm3 0.0-0.2 N NUCLEATED RBC # (test code = NRBC#) 0.00 K/mm3 0.0-0.1 N MANUAL DIFF REQUIRED (test code = MDIFF) NO, ONLY SCAN NEEDED DIFFERENTIAL [id number] 11:45:00* Test Item Value Reference Range Interpretation Comments STAIN ACCEPTABILITY (test code = STN ACCEPTABLE) MORPHOLOGY COMMENT (test code = MOC) PLATELET ESTIMATE (test code = PLTEST) PLATELET MORPHOLOGY (test code = PLTMORPH) CBC W/AUTO [id number] 11:44:00* Test Item Value Reference Range Interpretation Comments WHITE BLOOD CELL (test code = WBC) 5.3 K/mm3 4.5-12.5 N RED BLOOD CELL (test code = RBC) 2.91 mill/mm3 3.7-5.2 L HEMOGLOBIN (test code = HGB) 8.5 gram/dL 11.5-15.5 L HEMATOCRIT (test code = HCT) 28.1 % 36.0-46.0 L MEAN CELL VOLUME (test code = MCV) 96.6 fL 80-98 N MEAN CELL HGB (test code = MCH) 29.2 picogram 27.0-33.0 N MEAN CELL HGB CONCETRATION (test code = MCHC) 30.2 gram/dL 33.0-36. 0 L RED CELL DISTRIBUTION WIDTH (test code = RDW) 17.5 % 11.6-16. 2 H RED CELL DISTRIBUTION WIDTH SD (test code = RDW-SD) 57.6 fL 37 .0-51.0 H PLATELET COUNT (test code = PLT) 19 K/mm3 150-450 LL esults called to [id number] by ENMA 04/03/19 1138Critical results verified and read back by Nurse? Y NEUTROPHIL % (test code = NT%) 93.4 % 39.0-69.0 H IMMATURE GRANULOCYTE % (test code = IG%) 1.1 % 0.0-5.0 N LYMPHOCYTE % (test code = LY%) 3.0 % 25.0-55.0 L MONOCYTE % (test code = MO%) 2.5 % 0.0-10.0 N EOSINOPHIL % (test code = EO%) 0.0 % 0.0-5.0 N BASOPHIL % (test code = BA%) 0.0 % 0.0-1.0 N NUCLEATED RBC % (test code = NRBC%) 0.0 % 0-0 N NEUTROPHIL # (test code = NT#) 4.93 K/mm3 1.8-7.7 N IMMATURE GRANULOCYTE # (test code = IG#) 0.06 x10 3/uL 0-0.03 H LYMPHOCYTE # (test code = LY#) 0.16 K/mm3 1.0-5.0 L MONOCYTE # (test code = MO#) 0.13 K/mm3 0-0.8 N EOSINOPHIL # (test code = EO#) 0.00 K/mm3 0.0-0.5 N BASOPHIL # (test code = BA#) 0.00 K/mm3 0.0-0.2 N NUCLEATED RBC # (test code = NRBC#) 0.00 K/mm3 0.0-0.1 N MANUAL DIFF REQUIRED (test code = MDIFF) NO, ONLY SCAN NEEDED DIFFERENTIAL [id number] 11:44:00* Test Item Value Reference Range Interpretation Comments STAIN ACCEPTABILITY (test code = STN ACCEPTABLE) CABOT RINGS (test code = CAB) MORPHOLOGY COMMENT (test code = MOC) PLATELET ESTIMATE (test code = PLTEST) PLATELET MORPHOLOGY (test code = PLTMORPH) CBC W/AUTO [id number] 11:44:00* Test Item Value Reference Range Interpretation Comments WHITE BLOOD CELL (test code = WBC) 5.3 K/mm3 4.5-12.5 N RED BLOOD CELL (test code = RBC) 2.91 mill/mm3 3.7-5.2 L HEMOGLOBIN (test code = HGB) 8.5 gram/dL 11.5-15.5 L HEMATOCRIT (test code = HCT) 28.1 % 36.0-46.0 L MEAN CELL VOLUME (test code = MCV) 96.6 fL 80-98 N MEAN CELL HGB (test code = MCH) 29.2 picogram 27.0-33.0 N MEAN CELL HGB CONCETRATION (test code = MCHC) 30.2 gram/dL 33.0-36. 0 L RED CELL DISTRIBUTION WIDTH (test code = RDW) 17.5 % 11.6-16. 2 H RED CELL DISTRIBUTION WIDTH SD (test code = RDW-SD) 57.6 fL 37 .0-51.0 H PLATELET COUNT (test code = PLT) 19 K/mm3 150-450 LL esults called to [id number] by ENMA 04/03/19 1138Critical results verified and read back by Nurse? Y NEUTROPHIL % (test code = NT%) 93.4 % 39.0-69.0 H IMMATURE GRANULOCYTE % (test code = IG%) 1.1 % 0.0-5.0 N LYMPHOCYTE % (test code = LY%) 3.0 % 25.0-55.0 L MONOCYTE % (test code = MO%) 2.5 % 0.0-10.0 N EOSINOPHIL % (test code = EO%) 0.0 % 0.0-5.0 N BASOPHIL % (test code = BA%) 0.0 % 0.0-1.0 N NUCLEATED RBC % (test code = NRBC%) 0.0 % 0-0 N NEUTROPHIL # (test code = NT#) 4.93 K/mm3 1.8-7.7 N IMMATURE GRANULOCYTE # (test code = IG#) 0.06 x10 3/uL 0-0.03 H LYMPHOCYTE # (test code = LY#) 0.16 K/mm3 1.0-5.0 L MONOCYTE # (test code = MO#) 0.13 K/mm3 0-0.8 N EOSINOPHIL # (test code = EO#) 0.00 K/mm3 0.0-0.5 N BASOPHIL # (test code = BA#) 0.00 K/mm3 0.0-0.2 N NUCLEATED RBC # (test code = NRBC#) 0.00 K/mm3 0.0-0.1 N MANUAL DIFF REQUIRED (test code = MDIFF) NO, ONLY SCAN NEEDED DIFFERENTIAL [id number] 11:44:00* Test Item Value Reference Range Interpretation Comments STAIN ACCEPTABILITY (test code = STN ACCEPTABLE) CABOT RINGS (test code = CAB) MORPHOLOGY COMMENT (test code = MOC) PLATELET ESTIMATE (test code = PLTEST) PLATELET MORPHOLOGY (test code = PLTMORPH) BASIC METABOLIC [id number] 11:43:00* Test Item Value Reference Range Interpretation Comments SODIUM (test code = NA) 142 mmol/L 136-145 N POTASSIUM (test code = K) 5.4 mmol/L 3.5-5.1 H CHLORIDE (test code = CL) 103.0 mmol/L 98-107 N CARBON DIOXIDE (test code = CO2) 31.0 mmol/L 21-32 N ANION GAP (test code = GAP) 13.4 10-20 N GLUCOSE (test code = GLU) 178 mg/dL 74-106 H BLOOD UREA NITROGEN (test code = BUN) 72 mg/dL 7-18 H GLOMERULAR FILTRATION RATE (test code = GFR) 26 mL/min >=60 Estimated GFR by using Modified MDRD formula.Chronic kidney disease is defined as either kidney damageor GFR <60 mL/min/1.73 m2 for >3 months. CREATININE (test code = CREAT) 2.00 mg/dL 0.55-1.02 H Note change in reference range due to change in reagent. BUN/CREATININE RATIO (test code = BUN/CREA) 36.4 10-20 H CALCIUM (test code = CA) 7.9 mg/dL 8.5-10.1 L [id number] 11:43:00* Test Item Value Reference Range Interpretation Comments PHOSPHORUS (test code = PHOS) 4.4 mg/dL 2.5-4.9 N [id number] 11:43:00* Test Item Value Reference Range Interpretation Comments MAGNESIUM (test code = MAG) 2.1 mg/dL 1.8-2.4 N BASIC METABOLIC [id number] 11:37:00* Test Item Value Reference Range Interpretation Comments SODIUM (test code = NA) 142 mmol/L 136-145 N POTASSIUM (test code = K) 5.4 mmol/L 3.5-5.1 H CHLORIDE (test code = CL) 103.0 mmol/L 98-107 N CARBON DIOXIDE (test code = CO2) mmol/L 21-32 ANION GAP (test code = GAP) 10-20 GLUCOSE (test code = GLU) mg/dL 74-106 BLOOD UREA NITROGEN (test code = BUN) mg/dL 7-18 GLOMERULAR FILTRATION RATE (test code = GFR) mL/min >=60 CREATININE (test code = CREAT) mg/dL 0.55-1.02 BUN/CREATININE RATIO (test code = BUN/CREA) 10-20 CALCIUM (test code = CA) mg/dL 8.5-10.1 [id number] 11:37:00* Test Item Value Reference Range Interpretation Comments PHOSPHORUS (test code = PHOS) mg/dL 2.5-4.9 [id number] 11:37:00* Test Item Value Reference Range Interpretation Comments MAGNESIUM (test code = MAG) mg/dL 1.8-2.4 - XR ABDOMEN AP 1 [id number] 17:05:00 FAX: Shirin Luong MD [place]: St: [facility] FAX: Terrence Carter [phone] Name: SIOBHAN BARBOSA [facility] : 1965 Age/S: 54/F [address] [facility] Unit #: [id number] Loc: V.2078 [place] [address] Phys: Terrence Archibald [employer] Acct: [id number] Dis Date: Status: ADM IN PHONE #: [phone] Exam Date: 04/02/2019 1653 FAX #: [phone] Reason: abdominal distension EXAMS: CPT CODE: [id number] XR ABDOMEN AP 1 V [id number] REASON FOR EXAM: abdominal distension EXAM ORDER [...] the sigmoid colon suggestive of constipation. at 2037 Reported and signed by: Jewel Reyez M.D. CC: Shirin Knott; Terrence Archibald NP Technologist: Katja Bhat(Shanna) Trnscrd Date/Time/By: 04/02/2019 (6170) : By: Mark Orig Print D/T: S: 04/02/2019 (4260) PAGE 1 Signed Report CBC W/AUTO [id number] 11:59:00* Test Item Value Reference Range Interpretation Comments WHITE BLOOD CELL (test code = WBC) 4.7 K/mm3 4.5-12.5 N RED BLOOD CELL (test code = RBC) 2.86 mill/mm3 3.7-5.2 L HEMOGLOBIN (test code = HGB) 8.3 gram/dL 11.5-15.5 L HEMATOCRIT (test code = HCT) 27.2 % 36.0-46.0 L MEAN CELL VOLUME (test code = MCV) 95.1 fL 80-98 N MEAN CELL HGB (test code = MCH) 29.0 picogram 27.0-33.0 N MEAN CELL HGB CONCETRATION (test code = MCHC) 30.5 gram/dL 33.0-36. 0 L RED CELL DISTRIBUTION WIDTH (test code = RDW) 17.3 % 11.6-16. 2 H RED CELL DISTRIBUTION WIDTH SD (test code = RDW-SD) 56.0 fL 37 .0-51.0 H PLATELET COUNT (test code = PLT) 19 K/mm3 150-450 LL Results called to [id number] by VRICKYCF2 04/02/19 1006Critical results verified and read back by Nurse? Y MEAN PLATELET VOLUME (test code = MPV) TEST NOT PERFORMED fL 6.7-11 .0 NEUTROPHIL % (test code = NT%) 93.0 % 39.0-69.0 H IMMATURE GRANULOCYTE % (test code = IG%) 1.1 % 0.0-5.0 N LYMPHOCYTE % (test code = LY%) 3.6 % 25.0-55.0 L MONOCYTE % (test code = MO%) 2.3 % 0.0-10.0 N EOSINOPHIL % (test code = EO%) 0.0 % 0.0-5.0 N BASOPHIL % (test code = BA%) 0.0 % 0.0-1.0 N NUCLEATED RBC % (test code = NRBC%) 0.0 % 0-0 N NEUTROPHIL # (test code = NT#) 4.38 K/mm3 1.8-7.7 N IMMATURE GRANULOCYTE # (test code = IG#) 0.05 x10 3/uL 0-0.03 H LYMPHOCYTE # (test code = LY#) 0.17 K/mm3 1.0-5.0 L MONOCYTE # (test code = MO#) 0.11 K/mm3 0-0.8 N EOSINOPHIL # (test code = EO#) 0.00 K/mm3 0.0-0.5 N BASOPHIL # (test code = BA#) 0.00 K/mm3 0.0-0.2 N NUCLEATED RBC # (test code = NRBC#) 0.00 K/mm3 0.0-0.1 N MANUAL DIFF REQUIRED (test code = MDIFF) NO, ONLY SCAN NEEDED COME BACK LATER SABINE [id number] MELISSA.EP 04/02/19 0601DIFFERENTIAL [id number] 11:59:00* Test Item Value Reference Range Interpretation Comments STAIN ACCEPTABILITY (test code = STN ACCEPTABLE) STAIN ACCEPTABLE HYPOCHROMIA (test code = HYPO) 1+ BASOPHILIC STIPPLING (test code = STP) RARE ANISOCYTOSIS (test code = ANISO) 1+ MACROCYTOSIS (test code = MACR) 1+ ELLIPTOCYTES (test code = ELL) 1+ PLATELET ESTIMATE (test code = PLTEST) DECREASED PLATELET MORPHOLOGY (test code = PLTMORPH) NORMAL OCCASIONAL LARGE PLATELETS COME BACK LATER SABINE [id number] V.LAB.EP 04/02/19 0601PATHOLOGISTS [id number] 11:59:00* Test Item Value Reference Range Interpretation Comments PATHOLOGISTS FINDINGS (test code = PATH) PATH NOTES COME BACK LATER SABINE [id number] V.LAB.EP 04/02/19 0601CBC W/AUTO [id number] 11:10:00* Test Item Value Reference Range Interpretation Comments WHITE BLOOD CELL (test code = WBC) 4.7 K/mm3 4.5-12.5 N RED BLOOD CELL (test code = RBC) 2.86 mill/mm3 3.7-5.2 L HEMOGLOBIN (test code = HGB) 8.3 gram/dL 11.5-15.5 L HEMATOCRIT (test code = HCT) 27.2 % 36.0-46.0 L MEAN CELL VOLUME (test code = MCV) 95.1 fL 80-98 N MEAN CELL HGB (test code = MCH) 29.0 picogram 27.0-33.0 N MEAN CELL HGB CONCETRATION (test code = MCHC) 30.5 gram/dL 33.0-36. 0 L RED CELL DISTRIBUTION WIDTH (test code = RDW) 17.3 % 11.6-16. 2 H RED CELL DISTRIBUTION WIDTH SD (test code = RDW-SD) 56.0 fL 37 .0-51.0 H PLATELET COUNT (test code = PLT) 19 K/mm3 150-450 LL Results called to [id number] by V.LAB.CF2 04/02/19 1006Critical results verified and read back by Nurse? Y MEAN PLATELET VOLUME (test code = MPV) TEST NOT PERFORMED fL 6.7-11 .0 NEUTROPHIL % (test code = NT%) 93.0 % 39.0-69.0 H IMMATURE GRANULOCYTE % (test code = IG%) 1.1 % 0.0-5.0 N LYMPHOCYTE % (test code = LY%) 3.6 % 25.0-55.0 L MONOCYTE % (test code = MO%) 2.3 % 0.0-10.0 N EOSINOPHIL % (test code = EO%) 0.0 % 0.0-5.0 N BASOPHIL % (test code = BA%) 0.0 % 0.0-1.0 N NUCLEATED RBC % (test code = NRBC%) 0.0 % 0-0 N NEUTROPHIL # (test code = NT#) 4.38 K/mm3 1.8-7.7 N IMMATURE GRANULOCYTE # (test code = IG#) 0.05 x10 3/uL 0-0.03 H LYMPHOCYTE # (test code = LY#) 0.17 K/mm3 1.0-5.0 L MONOCYTE # (test code = MO#) 0.11 K/mm3 0-0.8 N EOSINOPHIL # (test code = EO#) 0.00 K/mm3 0.0-0.5 N BASOPHIL # (test code = BA#) 0.00 K/mm3 0.0-0.2 N NUCLEATED RBC # (test code = NRBC#) 0.00 K/mm3 0.0-0.1 N MANUAL DIFF REQUIRED (test code = MDIFF) NO, ONLY SCAN NEEDED COME BACK LATER SABINE [id number] V.LAB.EP 04/02/19 0601DIFFERENTIAL [id number] 11:10:00* Test Item Value Reference Range Interpretation Comments STAIN ACCEPTABILITY (test code = STN ACCEPTABLE) STAIN ACCEPTABLE HYPOCHROMIA (test code = HYPO) 1+ BASOPHILIC STIPPLING (test code = STP) RARE ANISOCYTOSIS (test code = ANISO) 1+ MACROCYTOSIS (test code = MACR) 1+ ELLIPTOCYTES (test code = ELL) 1+ PLATELET ESTIMATE (test code = PLTEST) DECREASED PLATELET MORPHOLOGY (test code = PLTMORPH) NORMAL OCCASIONAL LARGE PLATELETS COME BACK LATER SABINE [id number] V.LAB.EP 04/02/19 0601CBC W/AUTO [id number] 10:06:00* Test Item Value Reference Range Interpretation Comments WHITE BLOOD CELL (test code = WBC) 4.7 K/mm3 4.5-12.5 N RED BLOOD CELL (test code = RBC) 2.86 mill/mm3 3.7-5.2 L HEMOGLOBIN (test code = HGB) 8.3 gram/dL 11.5-15.5 L HEMATOCRIT (test code = HCT) 27.2 % 36.0-46.0 L MEAN CELL VOLUME (test code = MCV) 95.1 fL 80-98 N MEAN CELL HGB (test code = MCH) 29.0 picogram 27.0-33.0 N MEAN CELL HGB CONCETRATION (test code = MCHC) 30.5 gram/dL 33.0-36. 0 L RED CELL DISTRIBUTION WIDTH (test code = RDW) 17.3 % 11.6-16. 2 H RED CELL DISTRIBUTION WIDTH SD (test code = RDW-SD) 56.0 fL 37 .0-51.0 H PLATELET COUNT (test code = PLT) 19 K/mm3 150-450 LL Results called to [id number] by MELISSA.KAREN 04/02/19 1006Critical results verified and read back by Nurse? Y MEAN PLATELET VOLUME (test code = MPV) TEST NOT PERFORMED fL 6.7-11 .0 NEUTROPHIL % (test code = NT%) 93.0 % 39.0-69.0 H IMMATURE GRANULOCYTE % (test code = IG%) 1.1 % 0.0-5.0 N LYMPHOCYTE % (test code = LY%) 3.6 % 25.0-55.0 L MONOCYTE % (test code = MO%) 2.3 % 0.0-10.0 N EOSINOPHIL % (test code = EO%) 0.0 % 0.0-5.0 N BASOPHIL % (test code = BA%) 0.0 % 0.0-1.0 N NUCLEATED RBC % (test code = NRBC%) 0.0 % 0-0 N NEUTROPHIL # (test code = NT#) 4.38 K/mm3 1.8-7.7 N IMMATURE GRANULOCYTE # (test code = IG#) 0.05 x10 3/uL 0-0.03 H LYMPHOCYTE # (test code = LY#) 0.17 K/mm3 1.0-5.0 L MONOCYTE # (test code = MO#) 0.11 K/mm3 0-0.8 N EOSINOPHIL # (test code = EO#) 0.00 K/mm3 0.0-0.5 N BASOPHIL # (test code = BA#) 0.00 K/mm3 0.0-0.2 N NUCLEATED RBC # (test code = NRBC#) 0.00 K/mm3 0.0-0.1 N MANUAL DIFF REQUIRED (test code = MDIFF) NO, ONLY SCAN NEEDED COME BACK LATER SABINE [id number] V.LAB.EP 04/02/19 0601DIFFERENTIAL [id number] 10:06:00* Test Item Value Reference Range Interpretation Comments STAIN ACCEPTABILITY (test code = STN ACCEPTABLE) CABOT RINGS (test code = CAB) MORPHOLOGY COMMENT (test code = MOC) PLATELET ESTIMATE (test code = PLTEST) PLATELET MORPHOLOGY (test code = PLTMORPH) COME BACK LATER SABINE [id number] V.LAB.EP 04/02/19 0601CBC W/AUTO [id number] 10:06:00* Test Item Value Reference Range Interpretation Comments WHITE BLOOD CELL (test code = WBC) 4.7 K/mm3 4.5-12.5 N RED BLOOD CELL (test code = RBC) 2.86 mill/mm3 3.7-5.2 L HEMOGLOBIN (test code = HGB) 8.3 gram/dL 11.5-15.5 L HEMATOCRIT (test code = HCT) 27.2 % 36.0-46.0 L MEAN CELL VOLUME (test code = MCV) 95.1 fL 80-98 N MEAN CELL HGB (test code = MCH) 29.0 picogram 27.0-33.0 N MEAN CELL HGB CONCETRATION (test code = MCHC) 30.5 gram/dL 33.0-36. 0 L RED CELL DISTRIBUTION WIDTH (test code = RDW) 17.3 % 11.6-16. 2 H RED CELL DISTRIBUTION WIDTH SD (test code = RDW-SD) 56.0 fL 37 .0-51.0 H PLATELET COUNT (test code = PLT) 19 K/mm3 150-450 LL Results called to [id number] by Piggybackr.LAB.CF2 04/02/19 1006Critical results verified and read back by Nurse? Y MEAN PLATELET VOLUME (test code = MPV) TEST NOT PERFORMED fL 6.7-11 .0 NEUTROPHIL % (test code = NT%) 93.0 % 39.0-69.0 H IMMATURE GRANULOCYTE % (test code = IG%) 1.1 % 0.0-5.0 N LYMPHOCYTE % (test code = LY%) 3.6 % 25.0-55.0 L MONOCYTE % (test code = MO%) 2.3 % 0.0-10.0 N EOSINOPHIL % (test code = EO%) 0.0 % 0.0-5.0 N BASOPHIL % (test code = BA%) 0.0 % 0.0-1.0 N NUCLEATED RBC % (test code = NRBC%) 0.0 % 0-0 N NEUTROPHIL # (test code = NT#) 4.38 K/mm3 1.8-7.7 N IMMATURE GRANULOCYTE # (test code = IG#) 0.05 x10 3/uL 0-0.03 H LYMPHOCYTE # (test code = LY#) 0.17 K/mm3 1.0-5.0 L MONOCYTE # (test code = MO#) 0.11 K/mm3 0-0.8 N EOSINOPHIL # (test code = EO#) 0.00 K/mm3 0.0-0.5 N BASOPHIL # (test code = BA#) 0.00 K/mm3 0.0-0.2 N NUCLEATED RBC # (test code = NRBC#) 0.00 K/mm3 0.0-0.1 N MANUAL DIFF REQUIRED (test code = MDIFF) NO, ONLY SCAN NEEDED COME BACK LATER SABINE CAMPA V.LAB.EP 04/02/19 0601DIFFERENTIAL [id number] 10:06:00* Test Item Value Reference Range Interpretation Comments STAIN ACCEPTABILITY (test code = STN ACCEPTABLE) CABOT RINGS (test code = CAB) MORPHOLOGY COMMENT (test code = MOC) PLATELET ESTIMATE (test code = PLTEST) PLATELET MORPHOLOGY (test code = PLTMORPH) COME BACK LATER SABINE [id number] V.LAB.EP 04/02/19 0601CBC W/AUTO [id number] 10:06:00* Test Item Value Reference Range Interpretation Comments WHITE BLOOD CELL (test code = WBC) 4.7 K/mm3 4.5-12.5 N RED BLOOD CELL (test code = RBC) 2.86 mill/mm3 3.7-5.2 L HEMOGLOBIN (test code = HGB) 8.3 gram/dL 11.5-15.5 L HEMATOCRIT (test code = HCT) 27.2 % 36.0-46.0 L MEAN CELL VOLUME (test code = MCV) 95.1 fL 80-98 N MEAN CELL HGB (test code = MCH) 29.0 picogram 27.0-33.0 N MEAN CELL HGB CONCETRATION (test code = MCHC) 30.5 gram/dL 33.0-36. 0 L RED CELL DISTRIBUTION WIDTH (test code = RDW) 17.3 % 11.6-16. 2 H RED CELL DISTRIBUTION WIDTH SD (test code = RDW-SD) 56.0 fL 37 .0-51.0 H PLATELET COUNT (test code = PLT) 19 K/mm3 150-450 LL Results called to [id number] by V.LAB.CF2 04/02/19 1006Critical results verified and read back by Nurse? Y MEAN PLATELET VOLUME (test code = MPV) TEST NOT PERFORMED fL 6.7-11 .0 NEUTROPHIL % (test code = NT%) 93.0 % 39.0-69.0 H IMMATURE GRANULOCYTE % (test code = IG%) 1.1 % 0.0-5.0 N LYMPHOCYTE % (test code = LY%) 3.6 % 25.0-55.0 L MONOCYTE % (test code = MO%) 2.3 % 0.0-10.0 N EOSINOPHIL % (test code = EO%) 0.0 % 0.0-5.0 N BASOPHIL % (test code = BA%) 0.0 % 0.0-1.0 N NUCLEATED RBC % (test code = NRBC%) 0.0 % 0-0 N NEUTROPHIL # (test code = NT#) 4.38 K/mm3 1.8-7.7 N IMMATURE GRANULOCYTE # (test code = IG#) 0.05 x10 3/uL 0-0.03 H LYMPHOCYTE # (test code = LY#) 0.17 K/mm3 1.0-5.0 L MONOCYTE # (test code = MO#) 0.11 K/mm3 0-0.8 N EOSINOPHIL # (test code = EO#) 0.00 K/mm3 0.0-0.5 N BASOPHIL # (test code = BA#) 0.00 K/mm3 0.0-0.2 N NUCLEATED RBC # (test code = NRBC#) 0.00 K/mm3 0.0-0.1 N MANUAL DIFF REQUIRED (test code = MDIFF) NO, ONLY SCAN NEEDED COME BACK LATER SABINE [id number] V.LAB.EP 04/02/19 0601DIFFERENTIAL [id number] 10:06:00* Test Item Value Reference Range Interpretation Comments STAIN ACCEPTABILITY (test code = STN ACCEPTABLE) MORPHOLOGY COMMENT (test code = MOC) PLATELET ESTIMATE (test code = PLTEST) PLATELET MORPHOLOGY (test code = PLTMORPH) COME BACK LATER SABINE [id number] V.LAB.EP 04/02/19 0601CBC W/AUTO [id number] 10:06:00* Test Item Value Reference Range Interpretation Comments WHITE BLOOD CELL (test code = WBC) 4.7 K/mm3 4.5-12.5 N RED BLOOD CELL (test code = RBC) 2.86 mill/mm3 3.7-5.2 L HEMOGLOBIN (test code = HGB) 8.3 gram/dL 11.5-15.5 L HEMATOCRIT (test code = HCT) 27.2 % 36.0-46.0 L MEAN CELL VOLUME (test code = MCV) 95.1 fL 80-98 N MEAN CELL HGB (test code = MCH) 29.0 picogram 27.0-33.0 N MEAN CELL HGB CONCETRATION (test code = MCHC) 30.5 gram/dL 33.0-36. 0 L RED CELL DISTRIBUTION WIDTH (test code = RDW) 17.3 % 11.6-16. 2 H RED CELL DISTRIBUTION WIDTH SD (test code = RDW-SD) 56.0 fL 37 .0-51.0 H PLATELET COUNT (test code = PLT) 19 K/mm3 150-450 LL Results called to [id number] by V.LAB.CF 04/02/19 1006Critical results verified and read back by Nurse? Y MEAN PLATELET VOLUME (test code = MPV) TEST NOT PERFORMED fL 6.7-11 .0 NEUTROPHIL % (test code = NT%) 93.0 % 39.0-69.0 H IMMATURE GRANULOCYTE % (test code = IG%) 1.1 % 0.0-5.0 N LYMPHOCYTE % (test code = LY%) 3.6 % 25.0-55.0 L MONOCYTE % (test code = MO%) 2.3 % 0.0-10.0 N EOSINOPHIL % (test code = EO%) 0.0 % 0.0-5.0 N BASOPHIL % (test code = BA%) 0.0 % 0.0-1.0 N NUCLEATED RBC % (test code = NRBC%) 0.0 % 0-0 N NEUTROPHIL # (test code = NT#) 4.38 K/mm3 1.8-7.7 N IMMATURE GRANULOCYTE # (test code = IG#) 0.05 x10 3/uL 0-0.03 H LYMPHOCYTE # (test code = LY#) 0.17 K/mm3 1.0-5.0 L MONOCYTE # (test code = MO#) 0.11 K/mm3 0-0.8 N EOSINOPHIL # (test code = EO#) 0.00 K/mm3 0.0-0.5 N BASOPHIL # (test code = BA#) 0.00 K/mm3 0.0-0.2 N NUCLEATED RBC # (test code = NRBC#) 0.00 K/mm3 0.0-0.1 N MANUAL DIFF REQUIRED (test code = MDIFF) NO, ONLY SCAN NEEDED COME BACK LATER SABINE [id number] V.LAB. 04/02/19 0601DIFFERENTIAL [id number] 10:06:00* Test Item Value Reference Range Interpretation Comments STAIN ACCEPTABILITY (test code = STN ACCEPTABLE) CABOT RINGS (test code = CAB) MORPHOLOGY COMMENT (test code = MOC) PLATELET ESTIMATE (test code = PLTEST) PLATELET MORPHOLOGY (test code = PLTMORPH) COME BACK LATER SABINE [id number] V.LAB. 04/02/19 0601COMPREHENSIVE METABOLIC PANEL 2019-04-02 10:03:00* Test Item Value Reference Range Interpretation Comments SODIUM (test code = NA) 143 mmol/L 136-145 N POTASSIUM (test code = K) 4.7 mmol/L 3.5-5.1 N CHLORIDE (test code = CL) 103.0 mmol/L 98-107 N CARBON DIOXIDE (test code = CO2) 33.0 mmol/L 21-32 H ANION GAP (test code = GAP) 11.7 10-20 N GLUCOSE (test code = GLU) 158 mg/dL 74-106 H BLOOD UREA NITROGEN (test code = BUN) 75 mg/dL 7-18 H GLOMERULAR FILTRATION RATE (test code = GFR) 26 mL/min >=60 Estimated GFR by using Modified MDRD formula.Chronic kidney disease is defined as either kidney damageor GFR <60 mL/min/1.73 m2 for >3 months. CREATININE (test code = CREAT) 2.00 mg/dL 0.55-1.02 H Note change in reference range due to change in reagent. BUN/CREATININE RATIO (test code = BUN/CREA) 36.8 10-20 H TOTAL PROTEIN (test code = PROT) 5.7 gram/dL 6.4-8.2 L ALBUMIN (test code = ALB) 2.1 g/dL 3.4-5.0 L GLOBULIN (test code = GLOB) 3.6 gram/dL 2.7-4.2 N ALBUMIN/GLOBULIN RATIO (test code = A/G) 0.6 0.75-1.50 L CALCIUM (test code = CA) 7.9 mg/dL 8.5-10.1 L BILIRUBIN TOTAL (test code = BILT) 0.70 mg/dL 0.0-1.0 N SGOT/AST (test code = AST) 28 IUnit/L 15-37 N SGPT/ALT (test code = ALT) 39 IUnit/L 12-78 N ALKALINE PHOSPHATASE TOTAL (test code = ALKP) 327 IUnit/L 45-117 H Note change in reference range due to change in reagent. COME BACK LATER SABINE [id number] V.LAB.EP 04/02/19 0601COMPREHENSIVE METABOLIC PANEL 2019-04-02 09:53:00* Test Item Value Reference Range Interpretation Comments SODIUM (test code = NA) 143 mmol/L 136-145 N POTASSIUM (test code = K) 4.7 mmol/L 3.5-5.1 N CHLORIDE (test code = CL) 103.0 mmol/L 98-107 N CARBON DIOXIDE (test code = CO2) mmol/L 21-32 ANION GAP (test code = GAP) 10-20 GLUCOSE (test code = GLU) mg/dL 74-106 BLOOD UREA NITROGEN (test code = BUN) mg/dL 7-18 GLOMERULAR FILTRATION RATE (test code = GFR) mL/min >=60 CREATININE (test code = CREAT) mg/dL 0.55-1.02 BUN/CREATININE RATIO (test code = BUN/CREA) 10-20 TOTAL PROTEIN (test code = PROT) gram/dL 6.4-8.2 ALBUMIN (test code = ALB) g/dL 3.4-5.0 GLOBULIN (test code = GLOB) gram/dL 2.7-4.2 ALBUMIN/GLOBULIN RATIO (test code = A/G) 0.75-1.50 CALCIUM (test code = CA) mg/dL 8.5-10.1 BILIRUBIN TOTAL (test code = BILT) mg/dL 0.0-1.0 SGOT/AST (test code = AST) IUnit/L 15-37 SGPT/ALT (test code = ALT) IUnit/L 12-78 ALKALINE PHOSPHATASE TOTAL (test code = ALKP) IUnit/L 45-117 COME BACK LATER SABINE [id number] V.LAB.EP 04/02/19 0601CBC W/AUTO [id number] 15:21:00* Test Item Value Reference Range Interpretation Comments WHITE BLOOD CELL (test code = WBC) 5.0 K/mm3 4.5-12.5 N RED BLOOD CELL (test code = RBC) 2.96 mill/mm3 3.7-5.2 L HEMOGLOBIN (test code = HGB) 8.7 gram/dL 11.5-15.5 L HEMATOCRIT (test code = HCT) 27.8 % 36.0-46.0 L MEAN CELL VOLUME (test code = MCV) 93.9 fL 80-98 N MEAN CELL HGB (test code = MCH) 29.4 picogram 27.0-33.0 N MEAN CELL HGB CONCETRATION (test code = MCHC) 31.3 gram/dL 33.0-36. 0 L RED CELL DISTRIBUTION WIDTH (test code = RDW) 17.5 % 11.6-16. 2 H RED CELL DISTRIBUTION WIDTH SD (test code = RDW-SD) 56.0 fL 37 .0-51.0 H PLATELET COUNT (test code = PLT) 21 K/mm3 150-450 LL Results called to [id number] by V.[email or web address].TS1 04/01/19 1521Critical results verified and read back by Nurse? Y MEAN PLATELET VOLUME (test code = MPV) 11.1 fL 6.7-11.0 H NEUTROPHIL % (test code = NT%) 93.8 % 39.0-69.0 H IMMATURE GRANULOCYTE % (test code = IG%) 1.4 % 0.0-5.0 N LYMPHOCYTE % (test code = LY%) 3.0 % 25.0-55.0 L MONOCYTE % (test code = MO%) 1.8 % 0.0-10.0 N EOSINOPHIL % (test code = EO%) 0.0 % 0.0-5.0 N BASOPHIL % (test code = BA%) 0.0 % 0.0-1.0 N NUCLEATED RBC % (test code = NRBC%) 0.0 % 0-0 N NEUTROPHIL # (test code = NT#) 4.66 K/mm3 1.8-7.7 N IMMATURE GRANULOCYTE # (test code = IG#) 0.07 x10 3/uL 0-0.03 H LYMPHOCYTE # (test code = LY#) 0.15 K/mm3 1.0-5.0 L MONOCYTE # (test code = MO#) 0.09 K/mm3 0-0.8 N EOSINOPHIL # (test code = EO#) 0.00 K/mm3 0.0-0.5 N BASOPHIL # (test code = BA#) 0.00 K/mm3 0.0-0.2 N NUCLEATED RBC # (test code = NRBC#) 0.00 K/mm3 0.0-0.1 N ABNORMAL PLATELET COUNT TO CONFIRM NOTIFY JASSON (RN) V.LAB.KA04/01/19 1350time by positive ones.COMPREHENSIVE METABOLIC [id number] 14:06:00* Test Item Value Reference Range Interpretation Comments SODIUM (test code = NA) 142 mmol/L 136-145 N POTASSIUM (test code = K) 4.9 mmol/L 3.5-5.1 N CHLORIDE (test code = CL) 103.0 mmol/L 98-107 N CARBON DIOXIDE (test code = CO2) 30.0 mmol/L 21-32 N ANION GAP (test code = GAP) 13.9 10-20 N GLUCOSE (test code = GLU) 192 mg/dL 74-106 H BLOOD UREA NITROGEN (test code = BUN) 78 mg/dL 7-18 H GLOMERULAR FILTRATION RATE (test code = GFR) 26 mL/min >=60 Estimated GFR by using Modified MDRD formula.Chronic kidney disease is defined as either kidney damageor GFR <60 mL/min/1.73 m2 for >3 months. CREATININE (test code = CREAT) 2.00 mg/dL 0.55-1.02 H Note change in reference range due to change in reagent. BUN/CREATININE RATIO (test code = BUN/CREA) 39.0 10-20 H TOTAL PROTEIN (test code = PROT) 5.7 gram/dL 6.4-8.2 L ALBUMIN (test code = ALB) 2.1 g/dL 3.4-5.0 L GLOBULIN (test code = GLOB) 3.6 gram/dL 2.7-4.2 N ALBUMIN/GLOBULIN RATIO (test code = A/G) 0.6 0.75-1.50 L CALCIUM (test code = CA) 8.0 mg/dL 8.5-10.1 L BILIRUBIN TOTAL (test code = BILT) 0.90 mg/dL 0.0-1.0 N SGOT/AST (test code = AST) 39 IUnit/L 15-37 H SGPT/ALT (test code = ALT) 41 IUnit/L 12-78 N ALKALINE PHOSPHATASE TOTAL (test code = ALKP) 337 IUnit/L 45-117 H Note change in reference range due to change in reagent. PT REFUSED SABINE LYNCH([id number]) IS AWARE @0845 V.LAB.JS109/14/ 0849COMPREHENSIVE METABOLIC [id number] 14:00:00* Test Item Value Reference Range Interpretation Comments SODIUM (test code = NA) 142 mmol/L 136-145 N POTASSIUM (test code = K) 4.9 mmol/L 3.5-5.1 N CHLORIDE (test code = CL) 103.0 mmol/L 98-107 N CARBON DIOXIDE (test code = CO2) mmol/L 21-32 ANION GAP (test code = GAP) 10-20 GLUCOSE (test code = GLU) mg/dL 74-106 BLOOD UREA NITROGEN (test code = BUN) mg/dL 7-18 GLOMERULAR FILTRATION RATE (test code = GFR) mL/min >=60 CREATININE (test code = CREAT) mg/dL 0.55-1.02 BUN/CREATININE RATIO (test code = BUN/CREA) 10-20 TOTAL PROTEIN (test code = PROT) gram/dL 6.4-8.2 ALBUMIN (test code = ALB) g/dL 3.4-5.0 GLOBULIN (test code = GLOB) gram/dL 2.7-4.2 ALBUMIN/GLOBULIN RATIO (test code = A/G) 0.75-1.50 CALCIUM (test code = CA) mg/dL 8.5-10.1 BILIRUBIN TOTAL (test code = BILT) mg/dL 0.0-1.0 SGOT/AST (test code = AST) IUnit/L 15-37 SGPT/ALT (test code = ALT) IUnit/L 12-78 ALKALINE PHOSPHATASE TOTAL (test code = ALKP) IUnit/L 45-117 PT REFUSED SABINE CRIS([id number]) IS AWARE @08 V.LAB.JS109/ 0849- XR CHEST 1 V 2019-03-31 19:00:00 FAX: Kim Wayne MD [phone] [place]: St: [facility] FAX: Shirin Luong MD Name: SIOBHAN BARBOSA [facility] : 1965 Age/S: 54/F [address] [facility] Unit #: [id number] Loc: V.[address] [place] [address] Phys: Kim Dill MD Acct: [id number] Dis Date: Status: ADM IN PHONE #: [phone] Exam Date: 03/31/2019 1835 FAX #: [phone] Reason: Increased dyspnea EXAMS: CPT CODE: [id number] XR CHEST 1 V 83613 REASON FOR EXAM: Increased dyspnea Exam Order [...] Aguilar Washburn MD CC: Kim Dill MD; Shirin Knott Technologist: AUSTIN CARRANZA, RT(R); ... Trnscrd Date/Time/By: 03/31/2019 (1899) : By: [email or web address] Orig Print D/ T: S: 03/31/2019 (1902) PAGE 1 Si gned Report CBC W/MANUAL [id number] 14:21:00* Test Item Value Reference Range Interpretation Comments WHITE BLOOD CELL (test code = WBC) 10.1 K/mm3 4.5-12.5 N RED BLOOD CELL (test code = RBC) 3.49 mill/mm3 3.7-5.2 L HEMOGLOBIN (test code = HGB) 10.0 gram/dL 11.5-15.5 L HEMATOCRIT (test code = HCT) 32.5 % 36.0-46.0 L MEAN CELL VOLUME (test code = MCV) 93.1 fL 80-98 N MEAN CELL HGB (test code = MCH) 28.7 picogram 27.0-33.0 N MEAN CELL HGB CONCETRATION (test code = MCHC) 30.8 gram/dL 33.0-36. 0 L RED CELL DISTRIBUTION WIDTH (test code = RDW) 18.1 % 11.6-16. 2 H RED CELL DISTRIBUTION WIDTH SD (test code = RDW-SD) 56.8 fL 37 .0-51.0 H PLATELET COUNT (test code = PLT) 58 K/mm3 150-450 L RESULT VERIFIED BY REPEAT ANALYSIS MEAN PLATELET VOLUME (test code = MPV) 13.0 fL 6.7-11.0 H IMMATURE GRANULOCYTE % (test code = IG%) 6.8 % 0.0-5.0 H "The appearance of immature granulocytes (myelocytes,pro-myelocytes, meta-myelocytes) in the peripheral blood ofnon- individuals can indicate a response toinfection, inflammation, or other stimulus to the bonemarrow" NUCLEATED RBC % (test code = NRBC%) 0.0 % 0-0 N NEUTROPHIL # (test code = NT#) 8.97 K/mm3 1.8-7.7 H IMMATURE GRANULOCYTE # (test code = IG#) 0.69 x10 3/uL 0-0.03 H LYMPHOCYTE # (test code = LY#) 0.28 K/mm3 1.0-5.0 L MONOCYTE # (test code = MO#) 0.15 K/mm3 0-0.8 N EOSINOPHIL # (test code = EO#) 0.00 K/mm3 0.0-0.5 N BASOPHIL # (test code = BA#) 0.02 K/mm3 0.0-0.2 N NUCLEATED RBC # (test code = NRBC#) 0.00 K/mm3 0.0-0.1 N MANUAL DIFF REQUIRED (test code = MDIFF) YES STAIN ACCEPTABILITY (test code = STN ACCEPTABLE) STAIN ACCEPTABLE TOTAL CELLS COUNTED (test code = TCC) 115 #CELLS SEGMENTED NEUTROPHILS (test code = SEG) 97.4 % 39-69 H BAND NEUTROPHIL (test code = BAND) 0 % 0-10 N LYMPHOCYTE (test code = LYMPH) 0.9 % 25-55 L REACTIVE LYMPH (test code = RELYMPH) 0 % MONOCYTE (test code = MON) 1.7 % 0-10 N EOSINOPHIL (test code = EOS) 0 % 0.0-5.0 N BASOPHIL (test code = BASO) 0 % 0-1.0 N METAMYELOCYTE (test code = META) 0 % 0-0 N MYELOCYTE (test code = MYELO) 0 % 0.0-0.0 N PROMYELOCYTE (test code = PROM) 0 % 0-0 N ANISOCYTOSIS (test code = ANISO) 2+ MACROCYTOSIS (test code = MACR) 2+ PLATELET ESTIMATE (test code = PLTEST) DECREASED PLATELET MORPHOLOGY (test code = PLTMORPH) NORMAL IMMATURE FORMS (test code = IMMAT) 0 % 0-0 N BASIC METABOLIC [id number] 11:24:00* Test Item Value Reference Range Interpretation Comments SODIUM (test code = NA) 140 mmol/L 136-145 N POTASSIUM (test code = K) 5.1 mmol/L 3.5-5.1 N CHLORIDE (test code = CL) 102.0 mmol/L 98-107 N CARBON DIOXIDE (test code = CO2) 30.0 mmol/L 21-32 N ANION GAP (test code = GAP) 13.1 10-20 N GLUCOSE (test code = GLU) 162 mg/dL 74-106 H BLOOD UREA NITROGEN (test code = BUN) 84 mg/dL 7-18 H GLOMERULAR FILTRATION RATE (test code = GFR) 26 mL/min >=60 Estimated GFR by using Modified MDRD formula.Chronic kidney disease is defined as either kidney damageor GFR <60 mL/min/1.73 m2 for >3 months. CREATININE (test code = CREAT) 2.00 mg/dL 0.55-1.02 H Note change in reference range due to change in reagent. BUN/CREATININE RATIO (test code = BUN/CREA) 42.0 10-20 H CALCIUM (test code = CA) 8.5 mg/dL 8.5-10.1 N WANTS TO BE DRAWN AFTER BREAKFAST V.LAB.EP 03/30/19 0714BASI METABOLIC PANEL 2019-03-30 11:19:00* Test Item Value Reference Range Interpretation Comments SODIUM (test code = NA) 140 mmol/L 136-145 N POTASSIUM (test code = K) 5.1 mmol/L 3.5-5.1 N CHLORIDE (test code = CL) 102.0 mmol/L 98-107 N CARBON DIOXIDE (test code = CO2) mmol/L 21-32 ANION GAP (test code = GAP) 10-20 GLUCOSE (test code = GLU) mg/dL 74-106 BLOOD UREA NITROGEN (test code = BUN) mg/dL 7-18 GLOMERULAR FILTRATION RATE (test code = GFR) mL/min >=60 CREATININE (test code = CREAT) mg/dL 0.55-1.02 BUN/CREATININE RATIO (test code = BUN/CREA) 10-20 CALCIUM (test code = CA) mg/dL 8.5-10.1 WANTS TO BE DRAWN AFTER BREAKFAST V.LAB.EP 03/30/19 0714CBC W/MANUAL DIFF 2019-03-30 10:57:00* Test Item Value Reference Range Interpretation Comments WHITE BLOOD CELL (test code = WBC) 10.1 K/mm3 4.5-12.5 N RED BLOOD CELL (test code = RBC) 3.49 mill/mm3 3.7-5.2 L HEMOGLOBIN (test code = HGB) 10.0 gram/dL 11.5-15.5 L HEMATOCRIT (test code = HCT) 32.5 % 36.0-46.0 L MEAN CELL VOLUME (test code = MCV) 93.1 fL 80-98 N MEAN CELL HGB (test code = MCH) 28.7 picogram 27.0-33.0 N MEAN CELL HGB CONCETRATION (test code = MCHC) 30.8 gram/dL 33.0-36. 0 L RED CELL DISTRIBUTION WIDTH (test code = RDW) 18.1 % 11.6-16. 2 H RED CELL DISTRIBUTION WIDTH SD (test code = RDW-SD) 56.8 fL 37 .0-51.0 H PLATELET COUNT (test code = PLT) 58 K/mm3 150-450 L RESULT VERIFIED BY REPEAT ANALYSIS MEAN PLATELET VOLUME (test code = MPV) 13.0 fL 6.7-11.0 H IMMATURE GRANULOCYTE % (test code = IG%) 6.8 % 0.0-5.0 H "The appearance of immature granulocytes (myelocytes,pro-myelocytes, meta-myelocytes) in the peripheral blood ofnon- individuals can indicate a response toinfection, inflammation, or other stimulus to the bonemarrow" NUCLEATED RBC % (test code = NRBC%) 0.0 % 0-0 N NEUTROPHIL # (test code = NT#) 8.97 K/mm3 1.8-7.7 H IMMATURE GRANULOCYTE # (test code = IG#) 0.69 x10 3/uL 0-0.03 H LYMPHOCYTE # (test code = LY#) 0.28 K/mm3 1.0-5.0 L MONOCYTE # (test code = MO#) 0.15 K/mm3 0-0.8 N EOSINOPHIL # (test code = EO#) 0.00 K/mm3 0.0-0.5 N BASOPHIL # (test code = BA#) 0.02 K/mm3 0.0-0.2 N NUCLEATED RBC # (test code = NRBC#) 0.00 K/mm3 0.0-0.1 N MANUAL DIFF REQUIRED (test code = MDIFF) YES STAIN ACCEPTABILITY (test code = STN ACCEPTABLE) TOTAL CELLS COUNTED (test code = TCC) #CELLS SEGMENTED NEUTROPHILS (test code = SEG) % 39-69 LYMPHOCYTE (test code = LYMPH) % 25-55 MONOCYTE (test code = MON) % 0-10 EOSINOPHIL (test code = EOS) % 0.0-5.0 CABOT RINGS (test code = CAB) MORPHOLOGY COMMENT (test code = MOC) PLATELET ESTIMATE (test code = PLTEST) PLATELET MORPHOLOGY (test code = PLTMORPH) CBC W/MANUAL [id number] 10:57:00* Test Item Value Reference Range Interpretation Comments WHITE BLOOD CELL (test code = WBC) 10.1 K/mm3 4.5-12.5 N RED BLOOD CELL (test code = RBC) 3.49 mill/mm3 3.7-5.2 L HEMOGLOBIN (test code = HGB) 10.0 gram/dL 11.5-15.5 L HEMATOCRIT (test code = HCT) 32.5 % 36.0-46.0 L MEAN CELL VOLUME (test code = MCV) 93.1 fL 80-98 N MEAN CELL HGB (test code = MCH) 28.7 picogram 27.0-33.0 N MEAN CELL HGB CONCETRATION (test code = MCHC) 30.8 gram/dL 33.0-36. 0 L RED CELL DISTRIBUTION WIDTH (test code = RDW) 18.1 % 11.6-16. 2 H RED CELL DISTRIBUTION WIDTH SD (test code = RDW-SD) 56.8 fL 37 .0-51.0 H PLATELET COUNT (test code = PLT) 58 K/mm3 150-450 L RESULT VERIFIED BY REPEAT ANALYSIS MEAN PLATELET VOLUME (test code = MPV) 13.0 fL 6.7-11.0 H IMMATURE GRANULOCYTE % (test code = IG%) 6.8 % 0.0-5.0 H "The appearance of immature granulocytes (myelocytes,pro-myelocytes, meta-myelocytes) in the peripheral blood ofnon- individuals can indicate a response toinfection, inflammation, or other stimulus to the bonemarrow" NUCLEATED RBC % (test code = NRBC%) 0.0 % 0-0 N NEUTROPHIL # (test code = NT#) 8.97 K/mm3 1.8-7.7 H IMMATURE GRANULOCYTE # (test code = IG#) 0.69 x10 3/uL 0-0.03 H LYMPHOCYTE # (test code = LY#) 0.28 K/mm3 1.0-5.0 L MONOCYTE # (test code = MO#) 0.15 K/mm3 0-0.8 N EOSINOPHIL # (test code = EO#) 0.00 K/mm3 0.0-0.5 N BASOPHIL # (test code = BA#) 0.02 K/mm3 0.0-0.2 N NUCLEATED RBC # (test code = NRBC#) 0.00 K/mm3 0.0-0.1 N MANUAL DIFF REQUIRED (test code = MDIFF) YES STAIN ACCEPTABILITY (test code = STN ACCEPTABLE) TOTAL CELLS COUNTED (test code = TCC) #CELLS SEGMENTED NEUTROPHILS (test code = SEG) % 39-69 LYMPHOCYTE (test code = LYMPH) % 25-55 MONOCYTE (test code = MON) % 0-10 EOSINOPHIL (test code = EOS) % 0.0-5.0 CABOT RINGS (test code = CAB) MORPHOLOGY COMMENT (test code = MOC) PLATELET ESTIMATE (test code = PLTEST) PLATELET MORPHOLOGY (test code = PLTMORPH) CBC W/MANUAL [id number] 10:57:00* Test Item Value Reference Range Interpretation Comments WHITE BLOOD CELL (test code = WBC) 10.1 K/mm3 4.5-12.5 N RED BLOOD CELL (test code = RBC) 3.49 mill/mm3 3.7-5.2 L HEMOGLOBIN (test code = HGB) 10.0 gram/dL 11.5-15.5 L HEMATOCRIT (test code = HCT) 32.5 % 36.0-46.0 L MEAN CELL VOLUME (test code = MCV) 93.1 fL 80-98 N MEAN CELL HGB (test code = MCH) 28.7 picogram 27.0-33.0 N MEAN CELL HGB CONCETRATION (test code = MCHC) 30.8 gram/dL 33.0-36. 0 L RED CELL DISTRIBUTION WIDTH (test code = RDW) 18.1 % 11.6-16. 2 H RED CELL DISTRIBUTION WIDTH SD (test code = RDW-SD) 56.8 fL 37 .0-51.0 H PLATELET COUNT (test code = PLT) 58 K/mm3 150-450 L RESULT VERIFIED BY REPEAT ANALYSIS MEAN PLATELET VOLUME (test code = MPV) 13.0 fL 6.7-11.0 H IMMATURE GRANULOCYTE % (test code = IG%) 6.8 % 0.0-5.0 H "The appearance of immature granulocytes (myelocytes,pro-myelocytes, meta-myelocytes) in the peripheral blood ofnon- individuals can indicate a response toinfection, inflammation, or other stimulus to the bonemarrow" NUCLEATED RBC % (test code = NRBC%) 0.0 % 0-0 N NEUTROPHIL # (test code = NT#) 8.97 K/mm3 1.8-7.7 H IMMATURE GRANULOCYTE # (test code = IG#) 0.69 x10 3/uL 0-0.03 H LYMPHOCYTE # (test code = LY#) 0.28 K/mm3 1.0-5.0 L MONOCYTE # (test code = MO#) 0.15 K/mm3 0-0.8 N EOSINOPHIL # (test code = EO#) 0.00 K/mm3 0.0-0.5 N BASOPHIL # (test code = BA#) 0.02 K/mm3 0.0-0.2 N NUCLEATED RBC # (test code = NRBC#) 0.00 K/mm3 0.0-0.1 N MANUAL DIFF REQUIRED (test code = MDIFF) YES STAIN ACCEPTABILITY (test code = STN ACCEPTABLE) TOTAL CELLS COUNTED (test code = TCC) #CELLS SEGMENTED NEUTROPHILS (test code = SEG) % 39-69 LYMPHOCYTE (test code = LYMPH) % 25-55 MONOCYTE (test code = MON) % 0-10 EOSINOPHIL (test code = EOS) % 0.0-5.0 MORPHOLOGY COMMENT (test code = MOC) PLATELET ESTIMATE (test code = PLTEST) PLATELET MORPHOLOGY (test code = PLTMORPH) CBC W/MANUAL [id number] 10:57:00* Test Item Value Reference Range Interpretation Comments WHITE BLOOD CELL (test code = WBC) 10.1 K/mm3 4.5-12.5 N RED BLOOD CELL (test code = RBC) 3.49 mill/mm3 3.7-5.2 L HEMOGLOBIN (test code = HGB) 10.0 gram/dL 11.5-15.5 L HEMATOCRIT (test code = HCT) 32.5 % 36.0-46.0 L MEAN CELL VOLUME (test code = MCV) 93.1 fL 80-98 N MEAN CELL HGB (test code = MCH) 28.7 picogram 27.0-33.0 N MEAN CELL HGB CONCETRATION (test code = MCHC) 30.8 gram/dL 33.0-36. 0 L RED CELL DISTRIBUTION WIDTH (test code = RDW) 18.1 % 11.6-16. 2 H RED CELL DISTRIBUTION WIDTH SD (test code = RDW-SD) 56.8 fL 37 .0-51.0 H PLATELET COUNT (test code = PLT) 58 K/mm3 150-450 L RESULT VERIFIED BY REPEAT ANALYSIS MEAN PLATELET VOLUME (test code = MPV) 13.0 fL 6.7-11.0 H IMMATURE GRANULOCYTE % (test code = IG%) 6.8 % 0.0-5.0 H "The appearance of immature granulocytes (myelocytes,pro-myelocytes, meta-myelocytes) in the peripheral blood ofnon- individuals can indicate a response toinfection, inflammation, or other stimulus to the bonemarrow" NUCLEATED RBC % (test code = NRBC%) 0.0 % 0-0 N NEUTROPHIL # (test code = NT#) 8.97 K/mm3 1.8-7.7 H IMMATURE GRANULOCYTE # (test code = IG#) 0.69 x10 3/uL 0-0.03 H LYMPHOCYTE # (test code = LY#) 0.28 K/mm3 1.0-5.0 L MONOCYTE # (test code = MO#) 0.15 K/mm3 0-0.8 N EOSINOPHIL # (test code = EO#) 0.00 K/mm3 0.0-0.5 N BASOPHIL # (test code = BA#) 0.02 K/mm3 0.0-0.2 N NUCLEATED RBC # (test code = NRBC#) 0.00 K/mm3 0.0-0.1 N MANUAL DIFF REQUIRED (test code = MDIFF) YES STAIN ACCEPTABILITY (test code = STN ACCEPTABLE) TOTAL CELLS COUNTED (test code = TCC) #CELLS SEGMENTED NEUTROPHILS (test code = SEG) % 39-69 LYMPHOCYTE (test code = LYMPH) % 25-55 MONOCYTE (test code = MON) % 0-10 MORPHOLOGY COMMENT (test code = MOC) PLATELET ESTIMATE (test code = PLTEST) PLATELET MORPHOLOGY (test code = PLTMORPH) CBC W/MANUAL [id number] 10:57:00* Test Item Value Reference Range Interpretation Comments WHITE BLOOD CELL (test code = WBC) 10.1 K/mm3 4.5-12.5 N RED BLOOD CELL (test code = RBC) 3.49 mill/mm3 3.7-5.2 L HEMOGLOBIN (test code = HGB) 10.0 gram/dL 11.5-15.5 L HEMATOCRIT (test code = HCT) 32.5 % 36.0-46.0 L MEAN CELL VOLUME (test code = MCV) 93.1 fL 80-98 N MEAN CELL HGB (test code = MCH) 28.7 picogram 27.0-33.0 N MEAN CELL HGB CONCETRATION (test code = MCHC) 30.8 gram/dL 33.0-36. 0 L RED CELL DISTRIBUTION WIDTH (test code = RDW) 18.1 % 11.6-16. 2 H RED CELL DISTRIBUTION WIDTH SD (test code = RDW-SD) 56.8 fL 37 .0-51.0 H PLATELET COUNT (test code = PLT) 58 K/mm3 150-450 L RESULT VERIFIED BY REPEAT ANALYSIS MEAN PLATELET VOLUME (test code = MPV) 13.0 fL 6.7-11.0 H IMMATURE GRANULOCYTE % (test code = IG%) 6.8 % 0.0-5.0 H "The appearance of immature granulocytes (myelocytes,pro-myelocytes, meta-myelocytes) in the peripheral blood ofnon- individuals can indicate a response toinfection, inflammation, or other stimulus to the bonemarrow" NUCLEATED RBC % (test code = NRBC%) 0.0 % 0-0 N NEUTROPHIL # (test code = NT#) 8.97 K/mm3 1.8-7.7 H IMMATURE GRANULOCYTE # (test code = IG#) 0.69 x10 3/uL 0-0.03 H LYMPHOCYTE # (test code = LY#) 0.28 K/mm3 1.0-5.0 L MONOCYTE # (test code = MO#) 0.15 K/mm3 0-0.8 N EOSINOPHIL # (test code = EO#) 0.00 K/mm3 0.0-0.5 N BASOPHIL # (test code = BA#) 0.02 K/mm3 0.0-0.2 N NUCLEATED RBC # (test code = NRBC#) 0.00 K/mm3 0.0-0.1 N MANUAL DIFF REQUIRED (test code = MDIFF) YES STAIN ACCEPTABILITY (test code = STN ACCEPTABLE) TOTAL CELLS COUNTED (test code = TCC) #CELLS SEGMENTED NEUTROPHILS (test code = SEG) % 39-69 LYMPHOCYTE (test code = LYMPH) % 25-55 MONOCYTE (test code = MON) % 0-10 EOSINOPHIL (test code = EOS) % 0.0-5.0 CABOT RINGS (test code = CAB) MORPHOLOGY COMMENT (test code = MOC) PLATELET ESTIMATE (test code = PLTEST) PLATELET MORPHOLOGY (test code = PLTMORPH) CBC W/MANUAL [id number] 13:23:00* Test Item Value Reference Range Interpretation Comments WHITE BLOOD CELL (test code = WBC) 6.9 K/mm3 4.5-12.5 N RED BLOOD CELL (test code = RBC) 3.16 mill/mm3 3.7-5.2 L HEMOGLOBIN (test code = HGB) 9.2 gram/dL 11.5-15.5 L HEMATOCRIT (test code = HCT) 30.0 % 36.0-46.0 L MEAN CELL VOLUME (test code = MCV) 94.9 fL 80-98 N MEAN CELL HGB (test code = MCH) 29.1 picogram 27.0-33.0 N MEAN CELL HGB CONCETRATION (test code = MCHC) 30.7 gram/dL 33.0-36. 0 L RED CELL DISTRIBUTION WIDTH (test code = RDW) 18.0 % 11.6-16. 2 H RED CELL DISTRIBUTION WIDTH SD (test code = RDW-SD) 58.4 fL 37 .0-51.0 H PLATELET COUNT (test code = PLT) 40 K/mm3 150-450 LL Results called to [id number] by MARIUM 03/29/19 1220Critical results verified and read back by Nurse? Y MEAN PLATELET VOLUME (test code = MPV) 12.8 fL 6.7-11.0 H IMMATURE GRANULOCYTE % (test code = IG%) 7.4 % 0.0-5.0 H "The appearance of immature granulocytes (myelocytes,pro-myelocytes, meta-myelocytes) in the peripheral blood ofnon- individuals can indicate a response toinfection, inflammation, or other stimulus to the bonemarrow" NUCLEATED RBC % (test code = NRBC%) 0.0 % 0-0 N NEUTROPHIL # (test code = NT#) 6.03 K/mm3 1.8-7.7 N IMMATURE GRANULOCYTE # (test code = IG#) 0.51 x10 3/uL 0-0.03 H LYMPHOCYTE # (test code = LY#) 0.16 K/mm3 1.0-5.0 L MONOCYTE # (test code = MO#) 0.16 K/mm3 0-0.8 N EOSINOPHIL # (test code = EO#) 0.00 K/mm3 0.0-0.5 N BASOPHIL # (test code = BA#) 0.01 K/mm3 0.0-0.2 N NUCLEATED RBC # (test code = NRBC#) 0.00 K/mm3 0.0-0.1 N MANUAL DIFF REQUIRED (test code = MDIFF) YES STAIN ACCEPTABILITY (test code = STN ACCEPTABLE) STAIN ACCEPTABLE TOTAL CELLS COUNTED (test code = TCC) 115 #CELLS SEGMENTED NEUTROPHILS (test code = SEG) 89.5 % 39-69 H BAND NEUTROPHIL (test code = BAND) 3.5 % 0-10 N LYMPHOCYTE (test code = LYMPH) 3.5 % 25-55 L REACTIVE LYMPH (test code = RELYMPH) 0.9 % MONOCYTE (test code = MON) 2.6 % 0-10 N EOSINOPHIL (test code = EOS) 0 % 0.0-5.0 N BASOPHIL (test code = BASO) 0 % 0-1.0 N METAMYELOCYTE (test code = META) 0 % 0-0 N MYELOCYTE (test code = MYELO) 0 % 0.0-0.0 N PROMYELOCYTE (test code = PROM) 0 % 0-0 N ANISOCYTOSIS (test code = ANISO) 2+ MACROCYTOSIS (test code = MACR) 2+ PLATELET ESTIMATE (test code = PLTEST) DECREASED PLATELET MORPHOLOGY (test code = PLTMORPH) NORMAL IMMATURE FORMS (test code = IMMAT) 0 % 0-0 N REFUSAL, SABINE FRIED ([id number]) IS AWARE V.LAB.CS1 03/29/[id number] METABOLIC PANEL 2019-03-29 12:48:00* Test Item Value Reference Range Interpretation Comments SODIUM (test code = NA) 142 mmol/L 136-145 RESU LT VERIFIED BY REPEAT ANALYSIS POTASSIUM (test code = K) 4.5 mmol/L 3.5-5.1 N CHLORIDE (test code = CL) 105.0 mmol/L 98-107 N CARBON DIOXIDE (test code = CO2) 29.0 mmol/L 21-32 N ANION GAP (test code = GAP) 12.5 10-20 N GLUCOSE (test code = GLU) 200 mg/dL 74-106 H BLOOD UREA NITROGEN (test code = BUN) 84 mg/dL 7-18 H GLOMERULAR FILTRATION RATE (test code = GFR) 23 mL/min >=60 Estimated GFR by using Modified MDRD formula.Chronic kidney disease is defined as either kidney damageor GFR <60 mL/min/1.73 m2 for >3 months. CREATININE (test code = CREAT) 2.20 mg/dL 0.55-1.02 H Note change in reference range due to change in reagent. BUN/CREATININE RATIO (test code = BUN/CREA) 38.2 10-20 H CALCIUM (test code = CA) 8.0 mg/dL 8.5-10.1 L PT REFUSED LABS NOTIFIED NURSE MaggiLABGABINO 03/29/19 1007 REFUSAL, SABINE FRIED ([id number] ) IS AWARE V.LABWilliamsCS1 [id number] W/MANUAL [id number] 12:20:00* Test Item Value Reference Range Interpretation Comments WHITE BLOOD CELL (test code = WBC) 6.9 K/mm3 4.5-12.5 N RED BLOOD CELL (test code = RBC) 3.16 mill/mm3 3.7-5.2 L HEMOGLOBIN (test code = HGB) 9.2 gram/dL 11.5-15.5 L HEMATOCRIT (test code = HCT) 30.0 % 36.0-46.0 L MEAN CELL VOLUME (test code = MCV) 94.9 fL 80-98 N MEAN CELL HGB (test code = MCH) 29.1 picogram 27.0-33.0 N MEAN CELL HGB CONCETRATION (test code = MCHC) 30.7 gram/dL 33.0-36. 0 L RED CELL DISTRIBUTION WIDTH (test code = RDW) 18.0 % 11.6-16. 2 H RED CELL DISTRIBUTION WIDTH SD (test code = RDW-SD) 58.4 fL 37 .0-51.0 H PLATELET COUNT (test code = PLT) 40 K/mm3 150-450 LL Results called to [id number] by V.LABWilliamsJQ 03/29/19 1220Critical results verified and read back by Nurse? Y MEAN PLATELET VOLUME (test code = MPV) 12.8 fL 6.7-11.0 H IMMATURE GRANULOCYTE % (test code = IG%) 7.4 % 0.0-5.0 H "The appearance of immature granulocytes (myelocytes,pro-myelocytes, meta-myelocytes) in the peripheral blood ofnon- individuals can indicate a response toinfection, inflammation, or other stimulus to the bonemarrow" NUCLEATED RBC % (test code = NRBC%) 0.0 % 0-0 N NEUTROPHIL # (test code = NT#) 6.03 K/mm3 1.8-7.7 N IMMATURE GRANULOCYTE # (test code = IG#) 0.51 x10 3/uL 0-0.03 H LYMPHOCYTE # (test code = LY#) 0.16 K/mm3 1.0-5.0 L MONOCYTE # (test code = MO#) 0.16 K/mm3 0-0.8 N EOSINOPHIL # (test code = EO#) 0.00 K/mm3 0.0-0.5 N BASOPHIL # (test code = BA#) 0.01 K/mm3 0.0-0.2 N NUCLEATED RBC # (test code = NRBC#) 0.00 K/mm3 0.0-0.1 N MANUAL DIFF REQUIRED (test code = MDIFF) YES STAIN ACCEPTABILITY (test code = STN ACCEPTABLE) TOTAL CELLS COUNTED (test code = TCC) #CELLS SEGMENTED NEUTROPHILS (test code = SEG) % 39-69 LYMPHOCYTE (test code = LYMPH) % 25-55 MONOCYTE (test code = MON) % 0-10 EOSINOPHIL (test code = EOS) % 0.0-5.0 CABOT RINGS (test code = CAB) MORPHOLOGY COMMENT (test code = MOC) PLATELET ESTIMATE (test code = PLTEST) PLATELET MORPHOLOGY (test code = PLTMORPH) REFUSAL, SABINE FRIED ([id number]) IS AWARE V.LAB.[facility] 03/29/[id number] W/MANUAL DIFF 2019-03-29 12:20:00* Test Item Value Reference Range Interpretation Comments WHITE BLOOD CELL (test code = WBC) 6.9 K/mm3 4.5-12.5 N RED BLOOD CELL (test code = RBC) 3.16 mill/mm3 3.7-5.2 L HEMOGLOBIN (test code = HGB) 9.2 gram/dL 11.5-15.5 L HEMATOCRIT (test code = HCT) 30.0 % 36.0-46.0 L MEAN CELL VOLUME (test code = MCV) 94.9 fL 80-98 N MEAN CELL HGB (test code = MCH) 29.1 picogram 27.0-33.0 N MEAN CELL HGB CONCETRATION (test code = MCHC) 30.7 gram/dL 33.0-36. 0 L RED CELL DISTRIBUTION WIDTH (test code = RDW) 18.0 % 11.6-16. 2 H RED CELL DISTRIBUTION WIDTH SD (test code = RDW-SD) 58.4 fL 37 .0-51.0 H PLATELET COUNT (test code = PLT) 40 K/mm3 150-450 LL Results called to [id number] by MARIUM 03/29/19 1220Critical results verified and read back by Nurse? Y MEAN PLATELET VOLUME (test code = MPV) 12.8 fL 6.7-11.0 H IMMATURE GRANULOCYTE % (test code = IG%) 7.4 % 0.0-5.0 H "The appearance of immature granulocytes (myelocytes,pro-myelocytes, meta-myelocytes) in the peripheral blood ofnon- individuals can indicate a response toinfection, inflammation, or other stimulus to the bonemarrow" NUCLEATED RBC % (test code = NRBC%) 0.0 % 0-0 N NEUTROPHIL # (test code = NT#) 6.03 K/mm3 1.8-7.7 N IMMATURE GRANULOCYTE # (test code = IG#) 0.51 x10 3/uL 0-0.03 H LYMPHOCYTE # (test code = LY#) 0.16 K/mm3 1.0-5.0 L MONOCYTE # (test code = MO#) 0.16 K/mm3 0-0.8 N EOSINOPHIL # (test code = EO#) 0.00 K/mm3 0.0-0.5 N BASOPHIL # (test code = BA#) 0.01 K/mm3 0.0-0.2 N NUCLEATED RBC # (test code = NRBC#) 0.00 K/mm3 0.0-0.1 N MANUAL DIFF REQUIRED (test code = MDIFF) YES STAIN ACCEPTABILITY (test code = STN ACCEPTABLE) TOTAL CELLS COUNTED (test code = TCC) #CELLS SEGMENTED NEUTROPHILS (test code = SEG) % 39-69 LYMPHOCYTE (test code = LYMPH) % 25-55 MONOCYTE (test code = MON) % 0-10 EOSINOPHIL (test code = EOS) % 0.0-5.0 CABOT RINGS (test code = CAB) MORPHOLOGY COMMENT (test code = MOC) PLATELET ESTIMATE (test code = PLTEST) PLATELET MORPHOLOGY (test code = PLTMORPH) REFUSAL, RN CORKY ([id number]) IS AWARE [email or web address] [id number] W/MANUAL DIFF 2019-03-29 12:20:00* Test Item Value Reference Range Interpretation Comments WHITE BLOOD CELL (test code = WBC) 6.9 K/mm3 4.5-12.5 N RED BLOOD CELL (test code = RBC) 3.16 mill/mm3 3.7-5.2 L HEMOGLOBIN (test code = HGB) 9.2 gram/dL 11.5-15.5 L HEMATOCRIT (test code = HCT) 30.0 % 36.0-46.0 L MEAN CELL VOLUME (test code = MCV) 94.9 fL 80-98 N MEAN CELL HGB (test code = MCH) 29.1 picogram 27.0-33.0 N MEAN CELL HGB CONCETRATION (test code = MCHC) 30.7 gram/dL 33.0-36. 0 L RED CELL DISTRIBUTION WIDTH (test code = RDW) 18.0 % 11.6-16. 2 H RED CELL DISTRIBUTION WIDTH SD (test code = RDW-SD) 58.4 fL 37 .0-51.0 H PLATELET COUNT (test code = PLT) 40 K/mm3 150-450 LL Results called to [id number] by [email or web address] 03/29/19 1220Critical results verified and read back by Nurse? Y MEAN PLATELET VOLUME (test code = MPV) 12.8 fL 6.7-11.0 H IMMATURE GRANULOCYTE % (test code = IG%) 7.4 % 0.0-5.0 H "The appearance of immature granulocytes (myelocytes,pro-myelocytes, meta-myelocytes) in the peripheral blood ofnon- individuals can indicate a response toinfection, inflammation, or other stimulus to the bonemarrow" NUCLEATED RBC % (test code = NRBC%) 0.0 % 0-0 N NEUTROPHIL # (test code = NT#) 6.03 K/mm3 1.8-7.7 N IMMATURE GRANULOCYTE # (test code = IG#) 0.51 x10 3/uL 0-0.03 H LYMPHOCYTE # (test code = LY#) 0.16 K/mm3 1.0-5.0 L MONOCYTE # (test code = MO#) 0.16 K/mm3 0-0.8 N EOSINOPHIL # (test code = EO#) 0.00 K/mm3 0.0-0.5 N BASOPHIL # (test code = BA#) 0.01 K/mm3 0.0-0.2 N NUCLEATED RBC # (test code = NRBC#) 0.00 K/mm3 0.0-0.1 N MANUAL DIFF REQUIRED (test code = MDIFF) YES STAIN ACCEPTABILITY (test code = STN ACCEPTABLE) TOTAL CELLS COUNTED (test code = TCC) #CELLS SEGMENTED NEUTROPHILS (test code = SEG) % 39-69 LYMPHOCYTE (test code = LYMPH) % 25-55 MONOCYTE (test code = MON) % 0-10 EOSINOPHIL (test code = EOS) % 0.0-5.0 MORPHOLOGY COMMENT (test code = MOC) PLATELET ESTIMATE (test code = PLTEST) PLATELET MORPHOLOGY (test code = PLTMORPH) REFUSAL, SABINE FRIED ([id number]) IS AWARE V.LAB.[facility] [id number] W/MANUAL DIFF 2019-03-29 12:20:00* Test Item Value Reference Range Interpretation Comments WHITE BLOOD CELL (test code = WBC) 6.9 K/mm3 4.5-12.5 N RED BLOOD CELL (test code = RBC) 3.16 mill/mm3 3.7-5.2 L HEMOGLOBIN (test code = HGB) 9.2 gram/dL 11.5-15.5 L HEMATOCRIT (test code = HCT) 30.0 % 36.0-46.0 L MEAN CELL VOLUME (test code = MCV) 94.9 fL 80-98 N MEAN CELL HGB (test code = MCH) 29.1 picogram 27.0-33.0 N MEAN CELL HGB CONCETRATION (test code = MCHC) 30.7 gram/dL 33.0-36. 0 L RED CELL DISTRIBUTION WIDTH (test code = RDW) 18.0 % 11.6-16. 2 H RED CELL DISTRIBUTION WIDTH SD (test code = RDW-SD) 58.4 fL 37 .0-51.0 H PLATELET COUNT (test code = PLT) 40 K/mm3 150-450 LL Results called to [id number] by [email or web address] 03/29/19 1220Critical results verified and read back by Nurse? Y MEAN PLATELET VOLUME (test code = MPV) 12.8 fL 6.7-11.0 H IMMATURE GRANULOCYTE % (test code = IG%) 7.4 % 0.0-5.0 H "The appearance of immature granulocytes (myelocytes,pro-myelocytes, meta-myelocytes) in the peripheral blood ofnon- individuals can indicate a response toinfection, inflammation, or other stimulus to the bonemarrow" NUCLEATED RBC % (test code = NRBC%) 0.0 % 0-0 N NEUTROPHIL # (test code = NT#) 6.03 K/mm3 1.8-7.7 N IMMATURE GRANULOCYTE # (test code = IG#) 0.51 x10 3/uL 0-0.03 H LYMPHOCYTE # (test code = LY#) 0.16 K/mm3 1.0-5.0 L MONOCYTE # (test code = MO#) 0.16 K/mm3 0-0.8 N EOSINOPHIL # (test code = EO#) 0.00 K/mm3 0.0-0.5 N BASOPHIL # (test code = BA#) 0.01 K/mm3 0.0-0.2 N NUCLEATED RBC # (test code = NRBC#) 0.00 K/mm3 0.0-0.1 N MANUAL DIFF REQUIRED (test code = MDIFF) YES STAIN ACCEPTABILITY (test code = STN ACCEPTABLE) TOTAL CELLS COUNTED (test code = TCC) #CELLS SEGMENTED NEUTROPHILS (test code = SEG) % 39-69 LYMPHOCYTE (test code = LYMPH) % 25-55 MONOCYTE (test code = MON) % 0-10 MORPHOLOGY COMMENT (test code = MOC) PLATELET ESTIMATE (test code = PLTEST) PLATELET MORPHOLOGY (test code = PLTMORPH) REFUSAL, SABINE FRIED ([id number]) IS AWARE V.LAB.CS1 [id number] W/MANUAL DIFF 2019-03-29 12:20:00* Test Item Value Reference Range Interpretation Comments WHITE BLOOD CELL (test code = WBC) 6.9 K/mm3 4.5-12.5 N RED BLOOD CELL (test code = RBC) 3.16 mill/mm3 3.7-5.2 L HEMOGLOBIN (test code = HGB) 9.2 gram/dL 11.5-15.5 L HEMATOCRIT (test code = HCT) 30.0 % 36.0-46.0 L MEAN CELL VOLUME (test code = MCV) 94.9 fL 80-98 N MEAN CELL HGB (test code = MCH) 29.1 picogram 27.0-33.0 N MEAN CELL HGB CONCETRATION (test code = MCHC) 30.7 gram/dL 33.0-36. 0 L RED CELL DISTRIBUTION WIDTH (test code = RDW) 18.0 % 11.6-16. 2 H RED CELL DISTRIBUTION WIDTH SD (test code = RDW-SD) 58.4 fL 37 .0-51.0 H PLATELET COUNT (test code = PLT) 40 K/mm3 150-450 LL Results called to [id number] by MARIUM 03/29/19 1220Critical results verified and read back by Nurse? Y MEAN PLATELET VOLUME (test code = MPV) 12.8 fL 6.7-11.0 H IMMATURE GRANULOCYTE % (test code = IG%) 7.4 % 0.0-5.0 H "The appearance of immature granulocytes (myelocytes,pro-myelocytes, meta-myelocytes) in the peripheral blood ofnon- individuals can indicate a response toinfection, inflammation, or other stimulus to the bonemarrow" NUCLEATED RBC % (test code = NRBC%) 0.0 % 0-0 N NEUTROPHIL # (test code = NT#) 6.03 K/mm3 1.8-7.7 N IMMATURE GRANULOCYTE # (test code = IG#) 0.51 x10 3/uL 0-0.03 H LYMPHOCYTE # (test code = LY#) 0.16 K/mm3 1.0-5.0 L MONOCYTE # (test code = MO#) 0.16 K/mm3 0-0.8 N EOSINOPHIL # (test code = EO#) 0.00 K/mm3 0.0-0.5 N BASOPHIL # (test code = BA#) 0.01 K/mm3 0.0-0.2 N NUCLEATED RBC # (test code = NRBC#) 0.00 K/mm3 0.0-0.1 N MANUAL DIFF REQUIRED (test code = MDIFF) YES STAIN ACCEPTABILITY (test code = STN ACCEPTABLE) TOTAL CELLS COUNTED (test code = TCC) #CELLS SEGMENTED NEUTROPHILS (test code = SEG) % 39-69 LYMPHOCYTE (test code = LYMPH) % 25-55 MONOCYTE (test code = MON) % 0-10 EOSINOPHIL (test code = EOS) % 0.0-5.0 CABOT RINGS (test code = CAB) MORPHOLOGY COMMENT (test code = MOC) PLATELET ESTIMATE (test code = PLTEST) PLATELET MORPHOLOGY (test code = PLTMORPH) REFUSAL, RN CORKY ([id number]) IS AWARE V.LAB.CS1 [id number] BLOOD GAS 2019-03-28 15:59:00* Test Item Value Reference Range Interpretation Comments ARTERIAL BLOOD GAS PH (test code = PHA) 7.14 7.35-7.45 L L Results called to and read back by DR. Rausch 12:12 - 03/27/2019; by ISAAC ARTERIAL BLOOD GAS PCO2 (test code = PCO2A) 63.5 mm Hg 35-45 H ARTERIAL BLOOD GAS PO2 (test code = PO2A) 97.4 mmHg 80-100 N BICARBONATE TOTAL HCO3 (test code = HCO3) 20.9 mmol/L 23.0-27.0 L BASE EXCESS (test code = TERRENCE) -8.8 mmol/L -3.0-5.0 LL Results called to and read back by DR. Rausch 12:12 - 03/27/2019; by ISAAC ABG O2 SATURATION (test code = SATA) 95.4 % 90.0-98.0 N ABG TYPE (test code = TYPEA) Arterial FIO2 (test code = FIO2A) 100.0 ABG SITE (test code = SITEA) Rt RADIAL ARTERY MODIFIED ALLENS (test code = MODALL) Yes CHECK PERFORMED HEMATOCRIT (test code = HCT/ABG) 37 % 35-47 N TOTAL HGB (test code = THB) 12.5 gram/dL 11.5-15.5 N HGB O2 SAT (test code = HBOSAT) 94.9 % 94.00-98.00 N CARBOXYHEMOGLOBIN (test code = HOHGBT) 0.2 %totalHg 0.5-1.5 LL Results called to and read back by DR. Rausch 12:12 - 03/27/2019; by ISAAC METHEMOGLOBIN (test code = METHGB) 0.3 % 0.0-1.50 N O2 CONTENT (test code = O2CT) 16.8 % vol 18.0-22.0 L BASIC METABOLIC [id number] 13:48:00* Test Item Value Reference Range Interpretation Comments SODIUM (test code = NA) 147 mmol/L 136-145 H POTASSIUM (test code = K) 4.9 mmol/L 3.5-5.1 N CHLORIDE (test code = CL) 110.0 mmol/L 98-107 H CARBON DIOXIDE (test code = CO2) 29.0 mmol/L 21-32 N ANION GAP (test code = GAP) 12.9 10-20 N GLUCOSE (test code = GLU) 186 mg/dL 74-106 H BLOOD UREA NITROGEN (test code = BUN) 85 mg/dL 7-18 H GLOMERULAR FILTRATION RATE (test code = GFR) 20 mL/min >=60 Estimated GFR by using Modified MDRD formula.Chronic kidney disease is defined as either kidney damageor GFR <60 mL/min/1.73 m2 for >3 months. CREATININE (test code = CREAT) 2.50 mg/dL 0.55-1.02 H Note change in reference range due to change in reagent. BUN/CREATININE RATIO (test code = BUN/CREA) 34.3 10-20 H CALCIUM (test code = CA) 8.0 mg/dL 8.5-10.1 L RP1 03/28/19 1034CBC W/MANUAL [id number] 13:46:00* Test Item Value Reference Range Interpretation Comments WHITE BLOOD CELL (test code = WBC) 6.0 K/mm3 4.5-12.5 N RED BLOOD CELL (test code = RBC) 3.05 mill/mm3 3.7-5.2 L HEMOGLOBIN (test code = HGB) 8.8 gram/dL 11.5-15.5 L HEMATOCRIT (test code = HCT) 28.8 % 36.0-46.0 L MEAN CELL VOLUME (test code = MCV) 94.4 fL 80-98 N MEAN CELL HGB (test code = MCH) 28.9 picogram 27.0-33.0 N MEAN CELL HGB CONCETRATION (test code = MCHC) 30.6 gram/dL 33.0-36. 0 L RED CELL DISTRIBUTION WIDTH (test code = RDW) 18.2 % 11.6-16. 2 H RED CELL DISTRIBUTION WIDTH SD (test code = RDW-SD) 60.3 fL 37 .0-51.0 H PLATELET COUNT (test code = PLT) 42 K/mm3 150-450 LL Results called to SUZETTE by MYAH 03/28/19 1338Critical results verified and read back by Nurse? Y MEAN PLATELET VOLUME (test code = MPV) 11.7 fL 6.7-11.0 H IMMATURE GRANULOCYTE % (test code = IG%) 9.4 % 0.0-5.0 H "The appearance of immature granulocytes (myelocytes,pro-myelocytes, meta-myelocytes) in the peripheral blood ofnon- individuals can indicate a response toinfection, inflammation, or other stimulus to the bonemarrow" NUCLEATED RBC % (test code = NRBC%) 0.5 % 0-0 H NEUTROPHIL # (test code = NT#) 5.07 K/mm3 1.8-7.7 N IMMATURE GRANULOCYTE # (test code = IG#) 0.56 x10 3/uL 0-0.03 H LYMPHOCYTE # (test code = LY#) 0.19 K/mm3 1.0-5.0 L MONOCYTE # (test code = MO#) 0.13 K/mm3 0-0.8 N EOSINOPHIL # (test code = EO#) 0.00 K/mm3 0.0-0.5 N BASOPHIL # (test code = BA#) 0.01 K/mm3 0.0-0.2 N NUCLEATED RBC # (test code = NRBC#) 0.03 K/mm3 0.0-0.1 N MANUAL DIFF REQUIRED (test code = MDIFF) YES STAIN ACCEPTABILITY (test code = STN ACCEPTABLE) STAIN ACCEPTABLE TOTAL CELLS COUNTED (test code = TCC) 115 #CELLS SEGMENTED NEUTROPHILS (test code = SEG) 94.8 % 39-69 H BAND NEUTROPHIL (test code = BAND) 2.6 % 0-10 N LYMPHOCYTE (test code = LYMPH) 1.7 % 25-55 L REACTIVE LYMPH (test code = RELYMPH) 0 % MONOCYTE (test code = MON) 0.9 % 0-10 N EOSINOPHIL (test code = EOS) 0 % 0.0-5.0 N BASOPHIL (test code = BASO) 0 % 0-1.0 N METAMYELOCYTE (test code = META) 0 % 0-0 N MYELOCYTE (test code = MYELO) 0 % 0.0-0.0 N PROMYELOCYTE (test code = PROM) 0 % 0-0 N ANISOCYTOSIS (test code = ANISO) 1+ MACROCYTOSIS (test code = MACR) 1+ PLATELET ESTIMATE (test code = PLTEST) DECREASED PLATELET MORPHOLOGY (test code = PLTMORPH) NORMAL IMMATURE FORMS (test code = IMMAT) 0 % 0-0 N PT IS HS, RN SUZETTE GOODWIN ON NURSES 3-4 ID V.LAB.RP 1034CBC W/MANUAL [id number] 13:39:00* Test Item Value Reference Range Interpretation Comments WHITE BLOOD CELL (test code = WBC) 6.0 K/mm3 4.5-12.5 N RED BLOOD CELL (test code = RBC) 3.05 mill/mm3 3.7-5.2 L HEMOGLOBIN (test code = HGB) 8.8 gram/dL 11.5-15.5 L HEMATOCRIT (test code = HCT) 28.8 % 36.0-46.0 L MEAN CELL VOLUME (test code = MCV) 94.4 fL 80-98 N MEAN CELL HGB (test code = MCH) 28.9 picogram 27.0-33.0 N MEAN CELL HGB CONCETRATION (test code = MCHC) 30.6 gram/dL 33.0-36. 0 L RED CELL DISTRIBUTION WIDTH (test code = RDW) 18.2 % 11.6-16. 2 H RED CELL DISTRIBUTION WIDTH SD (test code = RDW-SD) 60.3 fL 37 .0-51.0 H PLATELET COUNT (test code = PLT) 42 K/mm3 150-450 LL Results called to SUZETTE by V.LABKAT 03/28/19 1338Critical results verified and read back by Nurse? Y MEAN PLATELET VOLUME (test code = MPV) 11.7 fL 6.7-11.0 H IMMATURE GRANULOCYTE % (test code = IG%) 9.4 % 0.0-5.0 H "The appearance of immature granulocytes (myelocytes,pro-myelocytes, meta-myelocytes) in the peripheral blood ofnon- individuals can indicate a response toinfection, inflammation, or other stimulus to the bonemarrow" NUCLEATED RBC % (test code = NRBC%) 0.5 % 0-0 H NEUTROPHIL # (test code = NT#) 5.07 K/mm3 1.8-7.7 N IMMATURE GRANULOCYTE # (test code = IG#) 0.56 x10 3/uL 0-0.03 H LYMPHOCYTE # (test code = LY#) 0.19 K/mm3 1.0-5.0 L MONOCYTE # (test code = MO#) 0.13 K/mm3 0-0.8 N EOSINOPHIL # (test code = EO#) 0.00 K/mm3 0.0-0.5 N BASOPHIL # (test code = BA#) 0.01 K/mm3 0.0-0.2 N NUCLEATED RBC # (test code = NRBC#) 0.03 K/mm3 0.0-0.1 N MANUAL DIFF REQUIRED (test code = MDIFF) YES STAIN ACCEPTABILITY (test code = STN ACCEPTABLE) TOTAL CELLS COUNTED (test code = TCC) #CELLS SEGMENTED NEUTROPHILS (test code = SEG) % 39-69 LYMPHOCYTE (test code = LYMPH) % 25-55 MONOCYTE (test code = MON) % 0-10 EOSINOPHIL (test code = EOS) % 0.0-5.0 CABOT RINGS (test code = CAB) MORPHOLOGY COMMENT (test code = MOC) PLATELET ESTIMATE (test code = PLTEST) PLATELET MORPHOLOGY (test code = PLTMORPH) PT IS HS, RN SUZETTE GOODWIN ON NURSES 3-4 ID V.LAB.RP109/05/06 1034CBC W/MANUAL [id number] 13:39:00* Test Item Value Reference Range Interpretation Comments WHITE BLOOD CELL (test code = WBC) 6.0 K/mm3 4.5-12.5 N RED BLOOD CELL (test code = RBC) 3.05 mill/mm3 3.7-5.2 L HEMOGLOBIN (test code = HGB) 8.8 gram/dL 11.5-15.5 L HEMATOCRIT (test code = HCT) 28.8 % 36.0-46.0 L MEAN CELL VOLUME (test code = MCV) 94.4 fL 80-98 N MEAN CELL HGB (test code = MCH) 28.9 picogram 27.0-33.0 N MEAN CELL HGB CONCETRATION (test code = MCHC) 30.6 gram/dL 33.0-36. 0 L RED CELL DISTRIBUTION WIDTH (test code = RDW) 18.2 % 11.6-16. 2 H RED CELL DISTRIBUTION WIDTH SD (test code = RDW-SD) 60.3 fL 37 .0-51.0 H PLATELET COUNT (test code = PLT) 42 K/mm3 150-450 LL Results called to SUZETTE by MYAH 03/28/19 1338Critical results verified and read back by Nurse? Y MEAN PLATELET VOLUME (test code = MPV) 11.7 fL 6.7-11.0 H IMMATURE GRANULOCYTE % (test code = IG%) 9.4 % 0.0-5.0 H "The appearance of immature granulocytes (myelocytes,pro-myelocytes, meta-myelocytes) in the peripheral blood ofnon- individuals can indicate a response toinfection, inflammation, or other stimulus to the bonemarrow" NUCLEATED RBC % (test code = NRBC%) 0.5 % 0-0 H NEUTROPHIL # (test code = NT#) 5.07 K/mm3 1.8-7.7 N IMMATURE GRANULOCYTE # (test code = IG#) 0.56 x10 3/uL 0-0.03 H LYMPHOCYTE # (test code = LY#) 0.19 K/mm3 1.0-5.0 L MONOCYTE # (test code = MO#) 0.13 K/mm3 0-0.8 N EOSINOPHIL # (test code = EO#) 0.00 K/mm3 0.0-0.5 N BASOPHIL # (test code = BA#) 0.01 K/mm3 0.0-0.2 N NUCLEATED RBC # (test code = NRBC#) 0.03 K/mm3 0.0-0.1 N MANUAL DIFF REQUIRED (test code = MDIFF) YES STAIN ACCEPTABILITY (test code = STN ACCEPTABLE) TOTAL CELLS COUNTED (test code = TCC) #CELLS SEGMENTED NEUTROPHILS (test code = SEG) % 39-69 LYMPHOCYTE (test code = LYMPH) % 25-55 MONOCYTE (test code = MON) % 0-10 EOSINOPHIL (test code = EOS) % 0.0-5.0 CABOT RINGS (test code = CAB) MORPHOLOGY COMMENT (test code = MOC) PLATELET ESTIMATE (test code = PLTEST) PLATELET MORPHOLOGY (test code = PLTMORPH) PT IS HS, RN SUZETTE GOODWIN ON NURSES 3-4 ID V.LAB.RP 1034CBC W/MANUAL [id number] 13:39:00* Test Item Value Reference Range Interpretation Comments WHITE BLOOD CELL (test code = WBC) 6.0 K/mm3 4.5-12.5 N RED BLOOD CELL (test code = RBC) 3.05 mill/mm3 3.7-5.2 L HEMOGLOBIN (test code = HGB) 8.8 gram/dL 11.5-15.5 L HEMATOCRIT (test code = HCT) 28.8 % 36.0-46.0 L MEAN CELL VOLUME (test code = MCV) 94.4 fL 80-98 N MEAN CELL HGB (test code = MCH) 28.9 picogram 27.0-33.0 N MEAN CELL HGB CONCETRATION (test code = MCHC) 30.6 gram/dL 33.0-36. 0 L RED CELL DISTRIBUTION WIDTH (test code = RDW) 18.2 % 11.6-16. 2 H RED CELL DISTRIBUTION WIDTH SD (test code = RDW-SD) 60.3 fL 37 .0-51.0 H PLATELET COUNT (test code = PLT) 42 K/mm3 150-450 LL Results called to SUZETTE by MADELAINEKA 03/28/19 1338Critical results verified and read back by Nurse? Y MEAN PLATELET VOLUME (test code = MPV) 11.7 fL 6.7-11.0 H IMMATURE GRANULOCYTE % (test code = IG%) 9.4 % 0.0-5.0 H "The appearance of immature granulocytes (myelocytes,pro-myelocytes, meta-myelocytes) in the peripheral blood ofnon- individuals can indicate a response toinfection, inflammation, or other stimulus to the bonemarrow" NUCLEATED RBC % (test code = NRBC%) 0.5 % 0-0 H NEUTROPHIL # (test code = NT#) 5.07 K/mm3 1.8-7.7 N IMMATURE GRANULOCYTE # (test code = IG#) 0.56 x10 3/uL 0-0.03 H LYMPHOCYTE # (test code = LY#) 0.19 K/mm3 1.0-5.0 L MONOCYTE # (test code = MO#) 0.13 K/mm3 0-0.8 N EOSINOPHIL # (test code = EO#) 0.00 K/mm3 0.0-0.5 N BASOPHIL # (test code = BA#) 0.01 K/mm3 0.0-0.2 N NUCLEATED RBC # (test code = NRBC#) 0.03 K/mm3 0.0-0.1 N MANUAL DIFF REQUIRED (test code = MDIFF) YES STAIN ACCEPTABILITY (test code = STN ACCEPTABLE) TOTAL CELLS COUNTED (test code = TCC) #CELLS SEGMENTED NEUTROPHILS (test code = SEG) % 39-69 LYMPHOCYTE (test code = LYMPH) % 25-55 MONOCYTE (test code = MON) % 0-10 EOSINOPHIL (test code = EOS) % 0.0-5.0 MORPHOLOGY COMMENT (test code = MOC) PLATELET ESTIMATE (test code = PLTEST) PLATELET MORPHOLOGY (test code = PLTMORPH) PT IS HS, SABINE GOODWIN ON NURSES 3-4 ID V.LAB. 1034CBC W/MANUAL [id number] 13:39:00* Test Item Value Reference Range Interpretation Comments WHITE BLOOD CELL (test code = WBC) 6.0 K/mm3 4.5-12.5 N RED BLOOD CELL (test code = RBC) 3.05 mill/mm3 3.7-5.2 L HEMOGLOBIN (test code = HGB) 8.8 gram/dL 11.5-15.5 L HEMATOCRIT (test code = HCT) 28.8 % 36.0-46.0 L MEAN CELL VOLUME (test code = MCV) 94.4 fL 80-98 N MEAN CELL HGB (test code = MCH) 28.9 picogram 27.0-33.0 N MEAN CELL HGB CONCETRATION (test code = MCHC) 30.6 gram/dL 33.0-36. 0 L RED CELL DISTRIBUTION WIDTH (test code = RDW) 18.2 % 11.6-16. 2 H RED CELL DISTRIBUTION WIDTH SD (test code = RDW-SD) 60.3 fL 37 .0-51.0 H PLATELET COUNT (test code = PLT) 42 K/mm3 150-450 LL Results called to SUZETTE by V.LAB.SHAYLA 03/28/19 1338Critical results verified and read back by Nurse? Y MEAN PLATELET VOLUME (test code = MPV) 11.7 fL 6.7-11.0 H IMMATURE GRANULOCYTE % (test code = IG%) 9.4 % 0.0-5.0 H "The appearance of immature granulocytes (myelocytes,pro-myelocytes, meta-myelocytes) in the peripheral blood ofnon- individuals can indicate a response toinfection, inflammation, or other stimulus to the bonemarrow" NUCLEATED RBC % (test code = NRBC%) 0.5 % 0-0 H NEUTROPHIL # (test code = NT#) 5.07 K/mm3 1.8-7.7 N IMMATURE GRANULOCYTE # (test code = IG#) 0.56 x10 3/uL 0-0.03 H LYMPHOCYTE # (test code = LY#) 0.19 K/mm3 1.0-5.0 L MONOCYTE # (test code = MO#) 0.13 K/mm3 0-0.8 N EOSINOPHIL # (test code = EO#) 0.00 K/mm3 0.0-0.5 N BASOPHIL # (test code = BA#) 0.01 K/mm3 0.0-0.2 N NUCLEATED RBC # (test code = NRBC#) 0.03 K/mm3 0.0-0.1 N MANUAL DIFF REQUIRED (test code = MDIFF) YES STAIN ACCEPTABILITY (test code = STN ACCEPTABLE) TOTAL CELLS COUNTED (test code = TCC) #CELLS SEGMENTED NEUTROPHILS (test code = SEG) % 39-69 LYMPHOCYTE (test code = LYMPH) % 25-55 MONOCYTE (test code = MON) % 0-10 MORPHOLOGY COMMENT (test code = MOC) PLATELET ESTIMATE (test code = PLTEST) PLATELET MORPHOLOGY (test code = PLTMORPH) PT IS HS, SABINE GOODWIN ON NURSES 3-4 ID V.LAB.RP109/10 1034CBC W/MANUAL [id number] 13:39:00* Test Item Value Reference Range Interpretation Comments WHITE BLOOD CELL (test code = WBC) 6.0 K/mm3 4.5-12.5 N RED BLOOD CELL (test code = RBC) 3.05 mill/mm3 3.7-5.2 L HEMOGLOBIN (test code = HGB) 8.8 gram/dL 11.5-15.5 L HEMATOCRIT (test code = HCT) 28.8 % 36.0-46.0 L MEAN CELL VOLUME (test code = MCV) 94.4 fL 80-98 N MEAN CELL HGB (test code = MCH) 28.9 picogram 27.0-33.0 N MEAN CELL HGB CONCETRATION (test code = MCHC) 30.6 gram/dL 33.0-36. 0 L RED CELL DISTRIBUTION WIDTH (test code = RDW) 18.2 % 11.6-16. 2 H RED CELL DISTRIBUTION WIDTH SD (test code = RDW-SD) 60.3 fL 37 .0-51.0 H PLATELET COUNT (test code = PLT) 42 K/mm3 150-450 LL Results called to SUZETTE by MYAH 03/28/19 1338Critical results verified and read back by Nurse? Y MEAN PLATELET VOLUME (test code = MPV) 11.7 fL 6.7-11.0 H IMMATURE GRANULOCYTE % (test code = IG%) 9.4 % 0.0-5.0 H "The appearance of immature granulocytes (myelocytes,pro-myelocytes, meta-myelocytes) in the peripheral blood ofnon- individuals can indicate a response toinfection, inflammation, or other stimulus to the bonemarrow" NUCLEATED RBC % (test code = NRBC%) 0.5 % 0-0 H NEUTROPHIL # (test code = NT#) 5.07 K/mm3 1.8-7.7 N IMMATURE GRANULOCYTE # (test code = IG#) 0.56 x10 3/uL 0-0.03 H LYMPHOCYTE # (test code = LY#) 0.19 K/mm3 1.0-5.0 L MONOCYTE # (test code = MO#) 0.13 K/mm3 0-0.8 N EOSINOPHIL # (test code = EO#) 0.00 K/mm3 0.0-0.5 N BASOPHIL # (test code = BA#) 0.01 K/mm3 0.0-0.2 N NUCLEATED RBC # (test code = NRBC#) 0.03 K/mm3 0.0-0.1 N MANUAL DIFF REQUIRED (test code = MDIFF) YES STAIN ACCEPTABILITY (test code = STN ACCEPTABLE) TOTAL CELLS COUNTED (test code = TCC) #CELLS SEGMENTED NEUTROPHILS (test code = SEG) % 39-69 LYMPHOCYTE (test code = LYMPH) % 25-55 MONOCYTE (test code = MON) % 0-10 EOSINOPHIL (test code = EOS) % 0.0-5.0 CABOT RINGS (test code = CAB) MORPHOLOGY COMMENT (test code = MOC) PLATELET ESTIMATE (test code = PLTEST) PLATELET MORPHOLOGY (test code = PLTMORPH) PT IS HS, RN SUZETTE GOODWIN ON NURSES 3-4 ID V.LAB.RP 1034BASIC METABOLIC [id number] 13:38:00* Test Item Value Reference Range Interpretation Comments SODIUM (test code = NA) 147 mmol/L 136-145 H POTASSIUM (test code = K) 4.9 mmol/L 3.5-5.1 N CHLORIDE (test code = CL) 110.0 mmol/L 98-107 H CARBON DIOXIDE (test code = CO2) mmol/L 21-32 ANION GAP (test code = GAP) 10-20 GLUCOSE (test code = GLU) mg/dL 74-106 BLOOD UREA NITROGEN (test code = BUN) mg/dL 7-18 GLOMERULAR FILTRATION RATE (test code = GFR) mL/min >=60 CREATININE (test code = CREAT) mg/dL 0.55-1.02 BUN/CREATININE RATIO (test code = BUN/CREA) 10-20 CALCIUM (test code = CA) mg/dL 8.5-10.1 RP1 03/28/19 1034CBC W/MANUAL [id number] 15:07:00* Test Item Value Reference Range Interpretation Comments WHITE BLOOD CELL (test code = WBC) 22.0 K/mm3 4.5-12.5 H RED BLOOD CELL (test code = RBC) 3.93 mill/mm3 3.7-5.2 N HEMOGLOBIN (test code = HGB) 11.4 gram/dL 11.5-15.5 L RESULT VERIFIED BY REPEAT ANALYSIS HEMATOCRIT (test code = HCT) 38.6 % 36.0-46.0 N MEAN CELL VOLUME (test code = MCV) 98.2 fL 80-98 H MEAN CELL HGB (test code = MCH) 29.0 picogram 27.0-33.0 N MEAN CELL HGB CONCETRATION (test code = MCHC) 29.5 gram/dL 33.0-36. 0 L RED CELL DISTRIBUTION WIDTH (test code = RDW) 18.9 % 11.6-16. 2 H RED CELL DISTRIBUTION WIDTH SD (test code = RDW-SD) 64.4 fL 37 .0-51.0 H PLATELET COUNT (test code = PLT) 128 K/mm3 150-450 L MEAN PLATELET VOLUME (test code = MPV) 12.5 fL 6.7-11.0 H IMMATURE GRANULOCYTE % (test code = IG%) 17.2 % 0.0-5.0 H "The appearance of immature granulocytes (myelocytes,pro-myelocytes, meta-myelocytes) in the peripheral blood ofnon- individuals can indicate a response toinfection, inflammation, or other stimulus to the bonemarrow" NUCLEATED RBC % (test code = NRBC%) 1.1 % 0-0 H NEUTROPHIL # (test code = NT#) 16.13 K/mm3 1.8-7.7 H IMMATURE GRANULOCYTE # (test code = IG#) 3.79 x10 3/uL 0-0.03 H LYMPHOCYTE # (test code = LY#) 1.23 K/mm3 1.0-5.0 N MONOCYTE # (test code = MO#) 0.81 K/mm3 0-0.8 H EOSINOPHIL # (test code = EO#) 0.00 K/mm3 0.0-0.5 N BASOPHIL # (test code = BA#) 0.02 K/mm3 0.0-0.2 N NUCLEATED RBC # (test code = NRBC#) 0.25 K/mm3 0.0-0.1 H MANUAL DIFF REQUIRED (test code = MDIFF) YES STAIN ACCEPTABILITY (test code = STN ACCEPTABLE) STAIN ACCEPTABLE TOTAL CELLS COUNTED (test code = TCC) 100 #CELLS SEGMENTED NEUTROPHILS (test code = SEG) 78 % 39-69 H BAND NEUTROPHIL (test code = BAND) 4 % 0-10 N LYMPHOCYTE (test code = LYMPH) 8 % 25-55 L MONOCYTE (test code = MON) 6 % 0-10 N METAMYELOCYTE (test code = META) 2 % 0-0 H MYELOCYTE (test code = MYELO) 2 % 0.0-0.0 H POLYCHROMASIA (test code = POLC) 1+ POIKILOCYTOSIS (test code = POIK) 1+ ANISOCYTOSIS (test code = ANISO) 1+ PLATELET ESTIMATE (test code = PLTEST) SLIGHTLY DECREASED PLATELET MORPHOLOGY (test code = PLTMORPH) NORMAL PT REFUSED RN [id number] 03/27/19 [id number]-TYPE NATRIURETIC PEPTIDE 2019-03-27 15:06:00* Test Item Value Reference Range Interpretation Comments B-TYPE NATRIURETIC PEPTIDE (test code = BNP) 2810 pg/mL 0-100 H CBC W/MANUAL [id number] 13:04:00* Test Item Value Reference Range Interpretation Comments WHITE BLOOD CELL (test code = WBC) 22.0 K/mm3 4.5-12.5 H RED BLOOD CELL (test code = RBC) 3.93 mill/mm3 3.7-5.2 N HEMOGLOBIN (test code = HGB) 11.4 gram/dL 11.5-15.5 L RESULT VERIFIED BY REPEAT ANALYSIS HEMATOCRIT (test code = HCT) 38.6 % 36.0-46.0 N MEAN CELL VOLUME (test code = MCV) 98.2 fL 80-98 H MEAN CELL HGB (test code = MCH) 29.0 picogram 27.0-33.0 N MEAN CELL HGB CONCETRATION (test code = MCHC) 29.5 gram/dL 33.0-36. 0 L RED CELL DISTRIBUTION WIDTH (test code = RDW) 18.9 % 11.6-16. 2 H RED CELL DISTRIBUTION WIDTH SD (test code = RDW-SD) 64.4 fL 37 .0-51.0 H PLATELET COUNT (test code = PLT) 128 K/mm3 150-450 L MEAN PLATELET VOLUME (test code = MPV) 12.5 fL 6.7-11.0 H IMMATURE GRANULOCYTE % (test code = IG%) 17.2 % 0.0-5.0 H "The appearance of immature granulocytes (myelocytes,pro-myelocytes, meta-myelocytes) in the peripheral blood ofnon- individuals can indicate a response toinfection, inflammation, or other stimulus to the bon[place]" NUCLEATED RBC % (test code = NRBC%) 1.1 % 0-0 H NEUTROPHIL # (test code = NT#) 16.13 K/mm3 1.8-7.7 H IMMATURE GRANULOCYTE # (test code = IG#) 3.79 x10 3/uL 0-0.03 H LYMPHOCYTE # (test code = LY#) 1.23 K/mm3 1.0-5.0 N MONOCYTE # (test code = MO#) 0.81 K/mm3 0-0.8 H EOSINOPHIL # (test code = EO#) 0.00 K/mm3 0.0-0.5 N BASOPHIL # (test code = BA#) 0.02 K/mm3 0.0-0.2 N NUCLEATED RBC # (test code = NRBC#) 0.25 K/mm3 0.0-0.1 H MANUAL DIFF REQUIRED (test code = MDIFF) YES STAIN ACCEPTABILITY (test code = STN ACCEPTABLE) TOTAL CELLS COUNTED (test code = TCC) #CELLS SEGMENTED NEUTROPHILS (test code = SEG) % 39-69 LYMPHOCYTE (test code = LYMPH) % 25-55 MONOCYTE (test code = MON) % 0-10 MORPHOLOGY COMMENT (test code = MOC) PLATELET ESTIMATE (test code = PLTEST) PLATELET MORPHOLOGY (test code = PLTMORPH) PT REFUSED RN [id number] 03/27/19 0607CBC W/MANUAL [id number] 13:01:00* Test Item Value Reference Range Interpretation Comments WHITE BLOOD CELL (test code = WBC) 22.0 K/mm3 4.5-12.5 H RED BLOOD CELL (test code = RBC) 3.93 mill/mm3 3.7-5.2 N HEMOGLOBIN (test code = HGB) 11.4 gram/dL 11.5-15.5 L RESULT VERIFIED BY REPEAT ANALYSIS HEMATOCRIT (test code = HCT) 38.6 % 36.0-46.0 N MEAN CELL VOLUME (test code = MCV) 98.2 fL 80-98 H MEAN CELL HGB (test code = MCH) 29.0 picogram 27.0-33.0 N MEAN CELL HGB CONCETRATION (test code = MCHC) 29.5 gram/dL 33.0-36. 0 L RED CELL DISTRIBUTION WIDTH (test code = RDW) 18.9 % 11.6-16. 2 H RED CELL DISTRIBUTION WIDTH SD (test code = RDW-SD) 64.4 fL 37 .0-51.0 H PLATELET COUNT (test code = PLT) 128 K/mm3 150-450 L MEAN PLATELET VOLUME (test code = MPV) 12.5 fL 6.7-11.0 H IMMATURE GRANULOCYTE % (test code = IG%) 17.2 % 0.0-5.0 H "The appearance of immature granulocytes (myelocytes,pro-myelocytes, meta-myelocytes) in the peripheral blood ofnon- individuals can indicate a response toinfection, inflammation, or other stimulus to the bonemarrow" NUCLEATED RBC % (test code = NRBC%) 1.1 % 0-0 H NEUTROPHIL # (test code = NT#) 16.13 K/mm3 1.8-7.7 H IMMATURE GRANULOCYTE # (test code = IG#) 3.79 x10 3/uL 0-0.03 H LYMPHOCYTE # (test code = LY#) 1.23 K/mm3 1.0-5.0 N MONOCYTE # (test code = MO#) 0.81 K/mm3 0-0.8 H EOSINOPHIL # (test code = EO#) 0.00 K/mm3 0.0-0.5 N BASOPHIL # (test code = BA#) 0.02 K/mm3 0.0-0.2 N NUCLEATED RBC # (test code = NRBC#) 0.25 K/mm3 0.0-0.1 H MANUAL DIFF REQUIRED (test code = MDIFF) YES STAIN ACCEPTABILITY (test code = STN ACCEPTABLE) TOTAL CELLS COUNTED (test code = TCC) #CELLS SEGMENTED NEUTROPHILS (test code = SEG) % 39-69 LYMPHOCYTE (test code = LYMPH) % 25-55 MONOCYTE (test code = MON) % 0-10 EOSINOPHIL (test code = EOS) % 0.0-5.0 CABOT RINGS (test code = CAB) MORPHOLOGY COMMENT (test code = MOC) PLATELET ESTIMATE (test code = PLTEST) PLATELET MORPHOLOGY (test code = PLTMORPH) PT REFUSED RN [id number] V.LAB.KP2 03/27/19 0607CBC W/MANUAL [id number] 13:01:00* Test Item Value Reference Range Interpretation Comments WHITE BLOOD CELL (test code = WBC) 22.0 K/mm3 4.5-12.5 H RED BLOOD CELL (test code = RBC) 3.93 mill/mm3 3.7-5.2 N HEMOGLOBIN (test code = HGB) 11.4 gram/dL 11.5-15.5 L RESULT VERIFIED BY REPEAT ANALYSIS HEMATOCRIT (test code = HCT) 38.6 % 36.0-46.0 N MEAN CELL VOLUME (test code = MCV) 98.2 fL 80-98 H MEAN CELL HGB (test code = MCH) 29.0 picogram 27.0-33.0 N MEAN CELL HGB CONCETRATION (test code = MCHC) 29.5 gram/dL 33.0-36. 0 L RED CELL DISTRIBUTION WIDTH (test code = RDW) 18.9 % 11.6-16. 2 H RED CELL DISTRIBUTION WIDTH SD (test code = RDW-SD) 64.4 fL 37 .0-51.0 H PLATELET COUNT (test code = PLT) 128 K/mm3 150-450 L MEAN PLATELET VOLUME (test code = MPV) 12.5 fL 6.7-11.0 H IMMATURE GRANULOCYTE % (test code = IG%) 17.2 % 0.0-5.0 H "The appearance of immature granulocytes (myelocytes,pro-myelocytes, meta-myelocytes) in the peripheral blood ofnon- individuals can indicate a response toinfection, inflammation, or other stimulus to the [place]" NUCLEATED RBC % (test code = NRBC%) 1.1 % 0-0 H NEUTROPHIL # (test code = NT#) 16.13 K/mm3 1.8-7.7 H IMMATURE GRANULOCYTE # (test code = IG#) 3.79 x10 3/uL 0-0.03 H LYMPHOCYTE # (test code = LY#) 1.23 K/mm3 1.0-5.0 N MONOCYTE # (test code = MO#) 0.81 K/mm3 0-0.8 H EOSINOPHIL # (test code = EO#) 0.00 K/mm3 0.0-0.5 N BASOPHIL # (test code = BA#) 0.02 K/mm3 0.0-0.2 N NUCLEATED RBC # (test code = NRBC#) 0.25 K/mm3 0.0-0.1 H MANUAL DIFF REQUIRED (test code = MDIFF) YES STAIN ACCEPTABILITY (test code = STN ACCEPTABLE) TOTAL CELLS COUNTED (test code = TCC) #CELLS SEGMENTED NEUTROPHILS (test code = SEG) % 39-69 LYMPHOCYTE (test code = LYMPH) % 25-55 MONOCYTE (test code = MON) % 0-10 EOSINOPHIL (test code = EOS) % 0.0-5.0 CABOT RINGS (test code = CAB) MORPHOLOGY COMMENT (test code = MOC) PLATELET ESTIMATE (test code = PLTEST) PLATELET MORPHOLOGY (test code = PLTMORPH) PT REFUSED RN [id number] V.LAB.KP2 03[facility]27[facility] [id number] 12:36:00* Test Item Value Reference Range Interpretation Comments SODIUM (test code = NA) 142 mmol/L 136-145 N POTASSIUM (test code = K) 5.8 mmol/L 3.5-5.1 H CHLORIDE (test code = CL) 112.0 mmol/L 98-107 H CARBON DIOXIDE (test code = CO2) 18.0 mmol/L 21-32 L ANION GAP (test code = GAP) 17.8 10-20 N GLUCOSE (test code = GLU) 208 mg/dL 74-106 H BLOOD UREA NITROGEN (test code = BUN) 79 mg/dL 7-18 H GLOMERULAR FILTRATION RATE (test code = GFR) 19 mL/min >=60 Estimated GFR by using Modified MDRD formula.Chronic kidney disease is defined as either kidney damageor GFR <60 mL/min/1.73 m2 for >3 months. CREATININE (test code = CREAT) 2.60 mg/dL 0.55-1.02 H Note change in reference range due to change in reagent. BUN/CREATININE RATIO (test code = BUN/CREA) 30.9 10-20 H CALCIUM (test code = CA) 8.2 mg/dL 8.5-10.1 L PT REFUSED RN [id number] V.LAB.KP2 03/27/19 0607- XR CHEST 1 [id number] 11:57:00 FAX: Kim Wayne MD [phone] [place]: St: ADM FAX: Shirin Luong MD Name: SIOBHAN BARBOSA [facility] : 1965 Age/S: 54/F [facility] Unit #: [id number] Loc: V.[address] [place] [address] Phys: Kim Dill MD Acct: [id number] Dis Date: Status: ADM IN PHONE #: [phone] Exam Date: 03/27/2019 1145 FAX #: [phone] Reason: DYSPNEA EXAMS: CPT CODE: [id number] XR CHEST 1 V 62960 HISTORY: Dyspnea. COMPARISON: March 21, 2019. Multiloculated moderate left lateral basal effusion and free-flowin g moderate right effusion. Diffuse dense alveolar infiltrates as well are unchanged. Cardiomegaly. IMPRESSION: Mul tiloculated left lateral basal pleural effusion. Free-flowing moderate r ight basal effusion. Diffuse dense bilateral alveolar infiltrates. These findings are essentially unchanged. at 1157 Reported and signed by : Krystian Johnson M.D. CC: Kim Dill MD; Shanna Knott Technologist: RT KAREN(R) Trnscrd Date/Time/By: 03/27/2019 (4958) : By: [email or web address] Orig Print D/T: S: 03/27/2019 (2782) PAGE 1 Signed Report - CT ABD PELVIS W/O CONT 2019-03-26 10:08:00 Name: SIOBHAN BARBOSA [facility] : 1965 Age/S: 54 / F [address] [facility] Unit #: [id number] Loc: [place] [address] Phys: Omer Luna MD Acct: [id number] Dis Date: Status: ADM IN PHONE #: [phone] Exam Date: 03/26/2019 0947 FAX #: [phone] Reason: STONE PROTOCOL. EVAL STONES AND STENT. EXAMS: CPT CODE: [id number] CT ABD PELVIS W/O CONT 99059 HISTORY: Evaluate stones and stent. COMPARISON: CT scan from October 24, 2018 and November 14, 2018. CT abdomen and pelvis: Stone protocol. Automated exposure control. CT of abdomen: Moderate partially loculated left effusion with subsegmental atelectasis and free-flowing moderate right effusion. Patchy right middle lobe [...] noted as well. No calyceal stones are vi sible. No obvious ureteral stone is visible. No pathologic adenopathy. Very heavy atherosclerotic calcifications of the abdominal an d pelvic vasculature. IVC filter caudal to the level of the renal veins. No bowel obstruction. Constipation. No colitis or diverticulitis or enteritis. CT PELVIS: Appendix is normal a nd high riding without inflammatory changes. PAGE 1 Signed Report (CONTINUED) Name: SIOBHAN BARBOSA [facility] : 1965 Age/S: 54 / F [address] [facility] Unit #: [id number] Loc: [place] [address] Phys: Omer Luna MD Acct: [id number] Dis Date: Status: ADM I N PHONE #: [phone] Exam Date: 03/26/20946 FAX #: [phone] Reason: STONE PROTOCOL. EV AL STONES AND STENT. EXAMS: CPT CODE: [id number] CT ABD PELVIS W/O CONT 37334 <Continued> Constipation. No bowel obstruction. Decompressed urinary bladder [...] 2 Signed Report (CONTINUED) Name: SIOBHAN BARBOSA [facility] : 1965 Age/S: 54 / F [address] [facility] Unit #: [id number] Loc: [place] [address] Phys: Omer Luna MD Acct: [id number] Dis Date: Status : ADM IN PHONE #: [phone] Exam Date: 0 03/26/2019 0947 FAX #: [phone] Reason: STONE CATIA COL. EVAL STONES AND STENT. EXAMS: CPT CODE: [id number] CT ABD PELVIS W/O CONT 97719 <Continued> at 1008 Reported and signed by: Krystian Johnson M.D. CC: Omer Luna MD; Shirin Knott Technologist:Lorna Rosales RT(R),CT CTDI: DLP: Trnscb Date/Time: 03/26/2019 (1008) [email or web address] Orig Print D/T: S: 03/26/2019 (1013) PAGE 3 Signed Report CBC W/MANUAL [id number] 09:00:00* Test Item Value Reference Range Interpretation Comments WHITE BLOOD CELL (test code = WBC) 7.1 K/mm3 4.5-12.5 N RED BLOOD CELL (test code = RBC) 3.18 mill/mm3 3.7-5.2 L HEMOGLOBIN (test code = HGB) 9.3 gram/dL 11.5-15.5 L RESULT VERIFIED BY REPEAT ANALYSIS HEMATOCRIT (test code = HCT) 29.5 % 36.0-46.0 L MEAN CELL VOLUME (test code = MCV) 92.8 fL 80-98 N MEAN CELL HGB (test code = MCH) 29.2 picogram 27.0-33.0 N MEAN CELL HGB CONCETRATION (test code = MCHC) 31.5 gram/dL 33.0-36. 0 L RED CELL DISTRIBUTION WIDTH (test code = RDW) 17.6 % 11.6-16. 2 H RED CELL DISTRIBUTION WIDTH SD (test code = RDW-SD) 57.9 fL 37 .0-51.0 H PLATELET COUNT (test code = PLT) 62 K/mm3 150-450 L MEAN PLATELET VOLUME (test code = MPV) 12.4 fL 6.7-11.0 H IMMATURE GRANULOCYTE % (test code = IG%) 9.4 % 0.0-5.0 H "The appearance of immature granulocytes (myelocytes,pro-myelocytes, meta-myelocytes) in the peripheral blood ofnon- individuals can indicate a response toinfection, inflammation, or other stimulus to the [place]" NUCLEATED RBC % (test code = NRBC%) 0.4 % 0-0 H NEUTROPHIL # (test code = NT#) 5.96 K/mm3 1.8-7.7 N IMMATURE GRANULOCYTE # (test code = IG#) 0.67 x10 3/uL 0-0.03 H LYMPHOCYTE # (test code = LY#) 0.27 K/mm3 1.0-5.0 L MONOCYTE # (test code = MO#) 0.17 K/mm3 0-0.8 N EOSINOPHIL # (test code = EO#) 0.01 K/mm3 0.0-0.5 N BASOPHIL # (test code = BA#) 0.02 K/mm3 0.0-0.2 N NUCLEATED RBC # (test code = NRBC#) 0.03 K/mm3 0.0-0.1 N MANUAL DIFF REQUIRED (test code = MDIFF) YES STAIN ACCEPTABILITY (test code = STN ACCEPTABLE) STAIN ACCEPTABLE TOTAL CELLS COUNTED (test code = TCC) 114 #CELLS SEGMENTED NEUTROPHILS (test code = SEG) 89.5 % 39-69 H BAND NEUTROPHIL (test code = BAND) 0 % 0-10 N LYMPHOCYTE (test code = LYMPH) 3.5 % 25-55 L REACTIVE LYMPH (test code = RELYMPH) 0 % MONOCYTE (test code = MON) 3.5 % 0-10 N EOSINOPHIL (test code = EOS) 0 % 0.0-5.0 N BASOPHIL (test code = BASO) 0 % 0-1.0 N METAMYELOCYTE (test code = META) 1.8 % 0-0 H MYELOCYTE (test code = MYELO) 1.7 % 0.0-0.0 H PROMYELOCYTE (test code = PROM) 0 % 0-0 N POIKILOCYTOSIS (test code = POIK) 1+ ANISOCYTOSIS (test code = ANISO) 2+ MACROCYTOSIS (test code = MACR) 1+ JAYLA CELLS (test code = JAYLA) 1+ NONE ACANTHOCYTES (test code = ACAN) 1+ NONE PLATELET ESTIMATE (test code = PLTEST) DECREASED PLATELET MORPHOLOGY (test code = PLTMORPH) NORMAL IMMATURE FORMS (test code = IMMAT) 0 % 0-0 N BASIC METABOLIC [id number] 08:24:00* Test Item Value Reference Range Interpretation Comments SODIUM (test code = NA) 142 mmol/L 136-145 N POTASSIUM (test code = K) 5.1 mmol/L 3.5-5.1 N CHLORIDE (test code = CL) 113.0 mmol/L 98-107 H CARBON DIOXIDE (test code = CO2) 23.0 mmol/L 21-32 N ANION GAP (test code = GAP) 11.1 10-20 N GLUCOSE (test code = GLU) 172 mg/dL 74-106 H BLOOD UREA NITROGEN (test code = BUN) 74 mg/dL 7-18 H GLOMERULAR FILTRATION RATE (test code = GFR) 19 mL/min >=60 Estimated GFR by using Modified MDRD formula.Chronic kidney disease is defined as either kidney damageor GFR <60 mL/min/1.73 m2 for >3 months. CREATININE (test code = CREAT) 2.60 mg/dL 0.55-1.02 H Note change in reference range due to change in reagent. BUN/CREATININE RATIO (test code = BUN/CREA) 28.8 10-20 H CALCIUM (test code = CA) 8.6 mg/dL 8.5-10.1 N 03/26/[id number] 08:24:00* Test Item Value Reference Range Interpretation Comments PHOSPHORUS (test code = PHOS) 4.9 mg/dL 2.5-4.9 N [id number] 08:24:00* Test Item Value Reference Range Interpretation Comments MAGNESIUM (test code = MAG) 2.3 mg/dL 1.8-2.4 N BASIC METABOLIC [id number] 08:19:00* Test Item Value Reference Range Interpretation Comments SODIUM (test code = NA) 142 mmol/L 136-145 N POTASSIUM (test code = K) 5.1 mmol/L 3.5-5.1 N CHLORIDE (test code = CL) 113.0 mmol/L 98-107 H CARBON DIOXIDE (test code = CO2) mmol/L 21-32 ANION GAP (test code = GAP) 10-20 GLUCOSE (test code = GLU) mg/dL 74-106 BLOOD UREA NITROGEN (test code = BUN) mg/dL 7-18 GLOMERULAR FILTRATION RATE (test code = GFR) mL/min >=60 CREATININE (test code = CREAT) mg/dL 0.55-1.02 BUN/CREATININE RATIO (test code = BUN/CREA) 10-20 CALCIUM (test code = CA) mg/dL 8.5-10.1 03/26/[id number] 08:19:00* Test Item Value Reference Range Interpretation Comments PHOSPHORUS (test code = PHOS) mg/dL 2.5-4.9 [id number] 08:19:00* Test Item Value Reference Range Interpretation Comments MAGNESIUM (test code = MAG) 2.3 mg/dL 1.8-2.4 N CBC W/MANUAL [id number] 08:13:00* Test Item Value Reference Range Interpretation Comments WHITE BLOOD CELL (test code = WBC) 7.1 K/mm3 4.5-12.5 N RED BLOOD CELL (test code = RBC) 3.18 mill/mm3 3.7-5.2 L HEMOGLOBIN (test code = HGB) 9.3 gram/dL 11.5-15.5 L RESULT VERIFIED BY REPEAT ANALYSIS HEMATOCRIT (test code = HCT) 29.5 % 36.0-46.0 L MEAN CELL VOLUME (test code = MCV) 92.8 fL 80-98 N MEAN CELL HGB (test code = MCH) 29.2 picogram 27.0-33.0 N MEAN CELL HGB CONCETRATION (test code = MCHC) 31.5 gram/dL 33.0-36. 0 L RED CELL DISTRIBUTION WIDTH (test code = RDW) 17.6 % 11.6-16. 2 H RED CELL DISTRIBUTION WIDTH SD (test code = RDW-SD) 57.9 fL 37 .0-51.0 H PLATELET COUNT (test code = PLT) 62 K/mm3 150-450 L MEAN PLATELET VOLUME (test code = MPV) 12.4 fL 6.7-11.0 H IMMATURE GRANULOCYTE % (test code = IG%) 9.4 % 0.0-5.0 H "The appearance of immature granulocytes (myelocytes,pro-myelocytes, meta-myelocytes) in the peripheral blood ofnon- individuals can indicate a response toinfection, inflammation, or other stimulus to the bon[place]" NUCLEATED RBC % (test code = NRBC%) 0.4 % 0-0 H NEUTROPHIL # (test code = NT#) 5.96 K/mm3 1.8-7.7 N IMMATURE GRANULOCYTE # (test code = IG#) 0.67 x10 3/uL 0-0.03 H LYMPHOCYTE # (test code = LY#) 0.27 K/mm3 1.0-5.0 L MONOCYTE # (test code = MO#) 0.17 K/mm3 0-0.8 N EOSINOPHIL # (test code = EO#) 0.01 K/mm3 0.0-0.5 N BASOPHIL # (test code = BA#) 0.02 K/mm3 0.0-0.2 N NUCLEATED RBC # (test code = NRBC#) 0.03 K/mm3 0.0-0.1 N MANUAL DIFF REQUIRED (test code = MDIFF) YES STAIN ACCEPTABILITY (test code = STN ACCEPTABLE) TOTAL CELLS COUNTED (test code = TCC) #CELLS SEGMENTED NEUTROPHILS (test code = SEG) % 39-69 LYMPHOCYTE (test code = LYMPH) % 25-55 MONOCYTE (test code = MON) % 0-10 EOSINOPHIL (test code = EOS) % 0.0-5.0 CAB[place] RINGS (test code = CAB) MORPHOLOGY COMMENT (test code = MOC) PLATELET ESTIMATE (test code = PLTEST) PLATELET MORPHOLOGY (test code = PLTMORPH) CBC W/MANUAL [id number] 08:13:00* Test Item Value Reference Range Interpretation Comments WHITE BLOOD CELL (test code = WBC) 7.1 K/mm3 4.5-12.5 N RED BLOOD CELL (test code = RBC) 3.18 mill/mm3 3.7-5.2 L HEMOGLOBIN (test code = HGB) 9.3 gram/dL 11.5-15.5 L RESULT VERIFIED BY REPEAT ANALYSIS HEMATOCRIT (test code = HCT) 29.5 % 36.0-46.0 L MEAN CELL VOLUME (test code = MCV) 92.8 fL 80-98 N MEAN CELL HGB (test code = MCH) 29.2 picogram 27.0-33.0 N MEAN CELL HGB CONCETRATION (test code = MCHC) 31.5 gram/dL 33.0-36. 0 L RED CELL DISTRIBUTION WIDTH (test code = RDW) 17.6 % 11.6-16. 2 H RED CELL DISTRIBUTION WIDTH SD (test code = RDW-SD) 57.9 fL 37 .0-51.0 H PLATELET COUNT (test code = PLT) 62 K/mm3 150-450 L MEAN PLATELET VOLUME (test code = MPV) 12.4 fL 6.7-11.0 H IMMATURE GRANULOCYTE % (test code = IG%) 9.4 % 0.0-5.0 H "The appearance of immature granulocytes (myelocytes,pro-myelocytes, meta-myelocytes) in the peripheral blood ofnon- individuals can indicate a response toinfection, inflammation, or other stimulus to the bon[place]" NUCLEATED RBC % (test code = NRBC%) 0.4 % 0-0 H NEUTROPHIL # (test code = NT#) 5.96 K/mm3 1.8-7.7 N IMMATURE GRANULOCYTE # (test code = IG#) 0.67 x10 3/uL 0-0.03 H LYMPHOCYTE # (test code = LY#) 0.27 K/mm3 1.0-5.0 L MONOCYTE # (test code = MO#) 0.17 K/mm3 0-0.8 N EOSINOPHIL # (test code = EO#) 0.01 K/mm3 0.0-0.5 N BASOPHIL # (test code = BA#) 0.02 K/mm3 0.0-0.2 N NUCLEATED RBC # (test code = NRBC#) 0.03 K/mm3 0.0-0.1 N MANUAL DIFF REQUIRED (test code = MDIFF) YES STAIN ACCEPTABILITY (test code = STN ACCEPTABLE) TOTAL CELLS COUNTED (test code = TCC) #CELLS SEGMENTED NEUTROPHILS (test code = SEG) % 39-69 LYMPHOCYTE (test code = LYMPH) % 25-55 MONOCYTE (test code = MON) % 0-10 EOSINOPHIL (test code = EOS) % 0.0-5.0 [place] (test code = CAB) MORPHOLOGY COMMENT (test code = MOC) PLATELET ESTIMATE (test code = PLTEST) PLATELET MORPHOLOGY (test code = PLTMORPH) CBC W/MANUAL [id number] 08:13:00* Test Item Value Reference Range Interpretation Comments WHITE BLOOD CELL (test code = WBC) 7.1 K/mm3 4.5-12.5 N RED BLOOD CELL (test code = RBC) 3.18 mill/mm3 3.7-5.2 L HEMOGLOBIN (test code = HGB) 9.3 gram/dL 11.5-15.5 L RESULT VERIFIED BY REPEAT ANALYSIS HEMATOCRIT (test code = HCT) 29.5 % 36.0-46.0 L MEAN CELL VOLUME (test code = MCV) 92.8 fL 80-98 N MEAN CELL HGB (test code = MCH) 29.2 picogram 27.0-33.0 N MEAN CELL HGB CONCETRATION (test code = MCHC) 31.5 gram/dL 33.0-36. 0 L RED CELL DISTRIBUTION WIDTH (test code = RDW) 17.6 % 11.6-16. 2 H RED CELL DISTRIBUTION WIDTH SD (test code = RDW-SD) 57.9 fL 37 .0-51.0 H PLATELET COUNT (test code = PLT) 62 K/mm3 150-450 L MEAN PLATELET VOLUME (test code = MPV) 12.4 fL 6.7-11.0 H IMMATURE GRANULOCYTE % (test code = IG%) 9.4 % 0.0-5.0 H "The appearance of immature granulocytes (myelocytes,pro-myelocytes, meta-myelocytes) in the peripheral blood ofnon- individuals can indicate a response toinfection, inflammation, or other stimulus to the bonemarrow" NUCLEATED RBC % (test code = NRBC%) 0.4 % 0-0 H NEUTROPHIL # (test code = NT#) 5.96 K/mm3 1.8-7.7 N IMMATURE GRANULOCYTE # (test code = IG#) 0.67 x10 3/uL 0-0.03 H LYMPHOCYTE # (test code = LY#) 0.27 K/mm3 1.0-5.0 L MONOCYTE # (test code = MO#) 0.17 K/mm3 0-0.8 N EOSINOPHIL # (test code = EO#) 0.01 K/mm3 0.0-0.5 N BASOPHIL # (test code = BA#) 0.02 K/mm3 0.0-0.2 N NUCLEATED RBC # (test code = NRBC#) 0.03 K/mm3 0.0-0.1 N MANUAL DIFF REQUIRED (test code = MDIFF) YES STAIN ACCEPTABILITY (test code = STN ACCEPTABLE) TOTAL CELLS COUNTED (test code = TCC) #CELLS SEGMENTED NEUTROPHILS (test code = SEG) % 39-69 LYMPHOCYTE (test code = LYMPH) % 25-55 MONOCYTE (test code = MON) % 0-10 EOSINOPHIL (test code = EOS) % 0.0-5.0 MORPHOLOGY COMMENT (test code = MOC) PLATELET ESTIMATE (test code = PLTEST) PLATELET MORPHOLOGY (test code = PLTMORPH) CBC W/MANUAL [id number] 08:13:00* Test Item Value Reference Range Interpretation Comments WHITE BLOOD CELL (test code = WBC) 7.1 K/mm3 4.5-12.5 N RED BLOOD CELL (test code = RBC) 3.18 mill/mm3 3.7-5.2 L HEMOGLOBIN (test code = HGB) 9.3 gram/dL 11.5-15.5 L RESULT VERIFIED BY REPEAT ANALYSIS HEMATOCRIT (test code = HCT) 29.5 % 36.0-46.0 L MEAN CELL VOLUME (test code = MCV) 92.8 fL 80-98 N MEAN CELL HGB (test code = MCH) 29.2 picogram 27.0-33.0 N MEAN CELL HGB CONCETRATION (test code = MCHC) 31.5 gram/dL 33.0-36. 0 L RED CELL DISTRIBUTION WIDTH (test code = RDW) 17.6 % 11.6-16. 2 H RED CELL DISTRIBUTION WIDTH SD (test code = RDW-SD) 57.9 fL 37 .0-51.0 H PLATELET COUNT (test code = PLT) 62 K/mm3 150-450 L MEAN PLATELET VOLUME (test code = MPV) 12.4 fL 6.7-11.0 H IMMATURE GRANULOCYTE % (test code = IG%) 9.4 % 0.0-5.0 H "The appearance of immature granulocytes (myelocytes,pro-myelocytes, meta-myelocytes) in the peripheral blood ofnon- individuals can indicate a response toinfection, inflammation, or other stimulus to the bon[place]arrow" NUCLEATED RBC % (test code = NRBC%) 0.4 % 0-0 H NEUTROPHIL # (test code = NT#) 5.96 K/mm3 1.8-7.7 N IMMATURE GRANULOCYTE # (test code = IG#) 0.67 x10 3/uL 0-0.03 H LYMPHOCYTE # (test code = LY#) 0.27 K/mm3 1.0-5.0 L MONOCYTE # (test code = MO#) 0.17 K/mm3 0-0.8 N EOSINOPHIL # (test code = EO#) 0.01 K/mm3 0.0-0.5 N BASOPHIL # (test code = BA#) 0.02 K/mm3 0.0-0.2 N NUCLEATED RBC # (test code = NRBC#) 0.03 K/mm3 0.0-0.1 N MANUAL DIFF REQUIRED (test code = MDIFF) YES STAIN ACCEPTABILITY (test code = STN ACCEPTABLE) TOTAL CELLS COUNTED (test code = TCC) #CELLS SEGMENTED NEUTROPHILS (test code = SEG) % 39-69 LYMPHOCYTE (test code = LYMPH) % 25-55 MONOCYTE (test code = MON) % 0-10 MORPHOLOGY COMMENT (test code = MOC) PLATELET ESTIMATE (test code = PLTEST) PLATELET MORPHOLOGY (test code = PLTMORPH) CBC W/MANUAL [id number] 08:13:00* Test Item Value Reference Range Interpretation Comments WHITE BLOOD CELL (test code = WBC) 7.1 K/mm3 4.5-12.5 N RED BLOOD CELL (test code = RBC) 3.18 mill/mm3 3.7-5.2 L HEMOGLOBIN (test code = HGB) 9.3 gram/dL 11.5-15.5 L RESULT VERIFIED BY REPEAT ANALYSIS HEMATOCRIT (test code = HCT) 29.5 % 36.0-46.0 L MEAN CELL VOLUME (test code = MCV) 92.8 fL 80-98 N MEAN CELL HGB (test code = MCH) 29.2 picogram 27.0-33.0 N MEAN CELL HGB CONCETRATION (test code = MCHC) 31.5 gram/dL 33.0-36. 0 L RED CELL DISTRIBUTION WIDTH (test code = RDW) 17.6 % 11.6-16. 2 H RED CELL DISTRIBUTION WIDTH SD (test code = RDW-SD) 57.9 fL 37 .0-51.0 H PLATELET COUNT (test code = PLT) 62 K/mm3 150-450 L MEAN PLATELET VOLUME (test code = MPV) 12.4 fL 6.7-11.0 H IMMATURE GRANULOCYTE % (test code = IG%) 9.4 % 0.0-5.0 H "The appearance of immature granulocytes (myelocytes,pro-myelocytes, meta-myelocytes) in the peripheral blood ofnon- individuals can indicate a response toinfection, inflammation, or other stimulus to the bonemarrow" NUCLEATED RBC % (test code = NRBC%) 0.4 % 0-0 H NEUTROPHIL # (test code = NT#) 5.96 K/mm3 1.8-7.7 N IMMATURE GRANULOCYTE # (test code = IG#) 0.67 x10 3/uL 0-0.03 H LYMPHOCYTE # (test code = LY#) 0.27 K/mm3 1.0-5.0 L MONOCYTE # (test code = MO#) 0.17 K/mm3 0-0.8 N EOSINOPHIL # (test code = EO#) 0.01 K/mm3 0.0-0.5 N BASOPHIL # (test code = BA#) 0.02 K/mm3 0.0-0.2 N NUCLEATED RBC # (test code = NRBC#) 0.03 K/mm3 0.0-0.1 N MANUAL DIFF REQUIRED (test code = MDIFF) YES STAIN ACCEPTABILITY (test code = STN ACCEPTABLE) TOTAL CELLS COUNTED (test code = TCC) #CELLS SEGMENTED NEUTROPHILS (test code = SEG) % 39-69 LYMPHOCYTE (test code = LYMPH) % 25-55 MONOCYTE (test code = MON) % 0-10 EOSINOPHIL (test code = EOS) % 0.0-5.0 CABOT RINGS (test code = CAB) MORPHOLOGY COMMENT (test code = MOC) PLATELET ESTIMATE (test code = PLTEST) PLATELET MORPHOLOGY (test code = PLTMORPH) CBC W/MANUAL [id number] 14:13:00* Test Item Value Reference Range Interpretation Comments WHITE BLOOD CELL (test code = WBC) 6.4 K/mm3 4.5-12.5 N RED BLOOD CELL (test code = RBC) 2.36 mill/mm3 3.7-5.2 L HEMOGLOBIN (test code = HGB) 6.6 gram/dL 11.5-15.5 L HEMATOCRIT (test code = HCT) 22.2 % 36.0-46.0 L MEAN CELL VOLUME (test code = MCV) 94.1 fL 80-98 N MEAN CELL HGB (test code = MCH) 28.0 picogram 27.0-33.0 N MEAN CELL HGB CONCETRATION (test code = MCHC) 29.7 gram/dL 33.0-36. 0 L RED CELL DISTRIBUTION WIDTH (test code = RDW) 18.6 % 11.6-16. 2 H RED CELL DISTRIBUTION WIDTH SD (test code = RDW-SD) 62.8 fL 37 .0-51.0 H PLATELET COUNT (test code = PLT) 64 K/mm3 150-450 L MEAN PLATELET VOLUME (test code = MPV) 11.5 fL 6.7-11.0 H IMMATURE GRANULOCYTE % (test code = IG%) 6.8 % 0.0-5.0 H "The appearance of immature granulocytes (myelocytes,pro-myelocytes, meta-myelocytes) in the peripheral blood ofnon- individuals can indicate a response toinfection, inflammation, or other stimulus to the bonemarrow" NUCLEATED RBC % (test code = NRBC%) 0.3 % 0-0 H NEUTROPHIL # (test code = NT#) 5.42 K/mm3 1.8-7.7 N IMMATURE GRANULOCYTE # (test code = IG#) 0.43 x10 3/uL 0-0.03 H LYMPHOCYTE # (test code = LY#) 0.31 K/mm3 1.0-5.0 L MONOCYTE # (test code = MO#) 0.18 K/mm3 0-0.8 N EOSINOPHIL # (test code = EO#) 0.00 K/mm3 0.0-0.5 N BASOPHIL # (test code = BA#) 0.01 K/mm3 0.0-0.2 N NUCLEATED RBC # (test code = NRBC#) 0.02 K/mm3 0.0-0.1 N MANUAL DIFF REQUIRED (test code = MDIFF) YES STAIN ACCEPTABILITY (test code = STN ACCEPTABLE) STAIN ACCEPTABLE TOTAL CELLS COUNTED (test code = TCC) 115 #CELLS SEGMENTED NEUTROPHILS (test code = SEG) 90.4 % 39-69 H BAND NEUTROPHIL (test code = BAND) 0 % 0-10 N LYMPHOCYTE (test code = LYMPH) 6.1 % 25-55 L REACTIVE LYMPH (test code = RELYMPH) 0 % MONOCYTE (test code = MON) 1.7 % 0-10 N EOSINOPHIL (test code = EOS) 0 % 0.0-5.0 N BASOPHIL (test code = BASO) 0 % 0-1.0 N METAMYELOCYTE (test code = META) 0.9 % 0-0 H MYELOCYTE (test code = MYELO) 0.9 % 0.0-0.0 H PROMYELOCYTE (test code = PROM) 0 % 0-0 N HYPOCHROMIA (test code = HYPO) 1+ ANISOCYTOSIS (test code = ANISO) 1+ MACROCYTOSIS (test code = MACR) 1+ PLATELET ESTIMATE (test code = PLTEST) DECREASED PLATELET MORPHOLOGY (test code = PLTMORPH) NORMAL IMMATURE FORMS (test code = IMMAT) 0 % 0-0 N PER RN JELANI [id number] COME BACK LATER V.LAB.KP2 [id number] NATRIURETIC [id number] 13:10:00* Test Item Value Reference Range Interpretation Comments B-TYPE NATRIURETIC PEPTIDE (test code = BNP) 4568.91 pgram/mL 0-100 H COME BACK LATER PER RN JELANI [id number] V.LAB.[facility] [id number] METABOLIC [id number] 13:02:00* Test Item Value Reference Range Interpretation Comments SODIUM (test code = NA) 142 mmol/L 136-145 N POTASSIUM (test code = K) 4.6 mmol/L 3.5-5.1 N CHLORIDE (test code = CL) 111.0 mmol/L 98-107 H CARBON DIOXIDE (test code = CO2) 20.0 mmol/L 21-32 L ANION GAP (test code = GAP) 15.6 10-20 N GLUCOSE (test code = GLU) 214 mg/dL 74-106 H BLOOD UREA NITROGEN (test code = BUN) 71 mg/dL 7-18 H GLOMERULAR FILTRATION RATE (test code = GFR) 18 mL/min >=60 Estimated GFR by using Modified MDRD formula.Chronic kidney disease is defined as either kidney damageor GFR <60 mL/min/1.73 m2 for >3 months. CREATININE (test code = CREAT) 2.80 mg/dL 0.55-1.02 H Note change in reference range due to change in reagent. BUN/CREATININE RATIO (test code = BUN/CREA) 25.3 10-20 H CALCIUM (test code = CA) 7.6 mg/dL 8.5-10.1 L COME BACK LATER PER SABINE [id number] JELANI V.LAB.[facility] [id number] METABOLIC [id number] 12:55:00* Test Item Value Reference Range Interpretation Comments SODIUM (test code = NA) 142 mmol/L 136-145 N POTASSIUM (test code = K) 4.6 mmol/L 3.5-5.1 N CHLORIDE (test code = CL) 111.0 mmol/L 98-107 H CARBON DIOXIDE (test code = CO2) mmol/L 21-32 ANION GAP (test code = GAP) 10-20 GLUCOSE (test code = GLU) mg/dL 74-106 BLOOD UREA NITROGEN (test code = BUN) mg/dL 7-18 GLOMERULAR FILTRATION RATE (test code = GFR) mL/min >=60 CREATININE (test code = CREAT) mg/dL 0.55-1.02 BUN/CREATININE RATIO (test code = BUN/CREA) 10-20 CALCIUM (test code = CA) mg/dL 8.5-10.1 COME BACK LATER PER SABINE [id number] JELANI Piggybackr.LAB.KP2 03/25/[id number] W/MANUAL DIFF 2019-03-25 12:45:00* Test Item Value Reference Range Interpretation Comments WHITE BLOOD CELL (test code = WBC) 6.4 K/mm3 4.5-12.5 N RED BLOOD CELL (test code = RBC) 2.36 mill/mm3 3.7-5.2 L HEMOGLOBIN (test code = HGB) 6.6 gram/dL 11.5-15.5 L HEMATOCRIT (test code = HCT) 22.2 % 36.0-46.0 L MEAN CELL VOLUME (test code = MCV) 94.1 fL 80-98 N MEAN CELL HGB (test code = MCH) 28.0 picogram 27.0-33.0 N MEAN CELL HGB CONCETRATION (test code = MCHC) 29.7 gram/dL 33.0-36. 0 L RED CELL DISTRIBUTION WIDTH (test code = RDW) 18.6 % 11.6-16. 2 H RED CELL DISTRIBUTION WIDTH SD (test code = RDW-SD) 62.8 fL 37 .0-51.0 H PLATELET COUNT (test code = PLT) 64 K/mm3 150-450 L MEAN PLATELET VOLUME (test code = MPV) 11.5 fL 6.7-11.0 H IMMATURE GRANULOCYTE % (test code = IG%) 6.8 % 0.0-5.0 H "The appearance of immature granulocytes (myelocytes,pro-myelocytes, meta-myelocytes) in the peripheral blood ofnon- individuals can indicate a response toinfection, inflammation, or other stimulus to the bonemarrow" NUCLEATED RBC % (test code = NRBC%) 0.3 % 0-0 H NEUTROPHIL # (test code = NT#) 5.42 K/mm3 1.8-7.7 N IMMATURE GRANULOCYTE # (test code = IG#) 0.43 x10 3/uL 0-0.03 H LYMPHOCYTE # (test code = LY#) 0.31 K/mm3 1.0-5.0 L MONOCYTE # (test code = MO#) 0.18 K/mm3 0-0.8 N EOSINOPHIL # (test code = EO#) 0.00 K/mm3 0.0-0.5 N BASOPHIL # (test code = BA#) 0.01 K/mm3 0.0-0.2 N NUCLEATED RBC # (test code = NRBC#) 0.02 K/mm3 0.0-0.1 N MANUAL DIFF REQUIRED (test code = MDIFF) YES STAIN ACCEPTABILITY (test code = STN ACCEPTABLE) TOTAL CELLS COUNTED (test code = TCC) #CELLS SEGMENTED NEUTROPHILS (test code = SEG) % 39-69 LYMPHOCYTE (test code = LYMPH) % 25-55 MONOCYTE (test code = MON) % 0-10 EOSINOPHIL (test code = EOS) % 0.0-5.0 CABOT RINGS (test code = CAB) MORPHOLOGY COMMENT (test code = MOC) PLATELET ESTIMATE (test code = PLTEST) PLATELET MORPHOLOGY (test code = PLTMORPH) PER SABINE PALOMARES [id number] COME BACK LATER V.LAB.KP2 03/25/[id number] W/MANUAL DIFF 2019-03-25 12:45:00* Test Item Value Reference Range Interpretation Comments WHITE BLOOD CELL (test code = WBC) 6.4 K/mm3 4.5-12.5 N RED BLOOD CELL (test code = RBC) 2.36 mill/mm3 3.7-5.2 L HEMOGLOBIN (test code = HGB) 6.6 gram/dL 11.5-15.5 L HEMATOCRIT (test code = HCT) 22.2 % 36.0-46.0 L MEAN CELL VOLUME (test code = MCV) 94.1 fL 80-98 N MEAN CELL HGB (test code = MCH) 28.0 picogram 27.0-33.0 N MEAN CELL HGB CONCETRATION (test code = MCHC) 29.7 gram/dL 33.0-36. 0 L RED CELL DISTRIBUTION WIDTH (test code = RDW) 18.6 % 11.6-16. 2 H RED CELL DISTRIBUTION WIDTH SD (test code = RDW-SD) 62.8 fL 37 .0-51.0 H PLATELET COUNT (test code = PLT) 64 K/mm3 150-450 L MEAN PLATELET VOLUME (test code = MPV) 11.5 fL 6.7-11.0 H IMMATURE GRANULOCYTE % (test code = IG%) 6.8 % 0.0-5.0 H "The appearance of immature granulocytes (myelocytes,pro-myelocytes, meta-myelocytes) in the peripheral blood ofnon- individuals can indicate a response toinfection, inflammation, or other stimulus to the bonemarrow" NUCLEATED RBC % (test code = NRBC%) 0.3 % 0-0 H NEUTROPHIL # (test code = NT#) 5.42 K/mm3 1.8-7.7 N IMMATURE GRANULOCYTE # (test code = IG#) 0.43 x10 3/uL 0-0.03 H LYMPHOCYTE # (test code = LY#) 0.31 K/mm3 1.0-5.0 L MONOCYTE # (test code = MO#) 0.18 K/mm3 0-0.8 N EOSINOPHIL # (test code = EO#) 0.00 K/mm3 0.0-0.5 N BASOPHIL # (test code = BA#) 0.01 K/mm3 0.0-0.2 N NUCLEATED RBC # (test code = NRBC#) 0.02 K/mm3 0.0-0.1 N MANUAL DIFF REQUIRED (test code = MDIFF) YES STAIN ACCEPTABILITY (test code = STN ACCEPTABLE) TOTAL CELLS COUNTED (test code = TCC) #CELLS SEGMENTED NEUTROPHILS (test code = SEG) % 39-69 LYMPHOCYTE (test code = LYMPH) % 25-55 MONOCYTE (test code = MON) % 0-10 EOSINOPHIL (test code = EOS) % 0.0-5.0 CABOT RINGS (test code = CAB) MORPHOLOGY COMMENT (test code = MOC) PLATELET ESTIMATE (test code = PLTEST) PLATELET MORPHOLOGY (test code = PLTMORPH) PER SABINE PALOMARES [id number] COME BACK LATER V.LAB.KP2 03/25/[id number] W/MANUAL DIFF 2019-03-25 12:45:00* Test Item Value Reference Range Interpretation Comments WHITE BLOOD CELL (test code = WBC) 6.4 K/mm3 4.5-12.5 N RED BLOOD CELL (test code = RBC) 2.36 mill/mm3 3.7-5.2 L HEMOGLOBIN (test code = HGB) 6.6 gram/dL 11.5-15.5 L HEMATOCRIT (test code = HCT) 22.2 % 36.0-46.0 L MEAN CELL VOLUME (test code = MCV) 94.1 fL 80-98 N MEAN CELL HGB (test code = MCH) 28.0 picogram 27.0-33.0 N MEAN CELL HGB CONCETRATION (test code = MCHC) 29.7 gram/dL 33.0-36. 0 L RED CELL DISTRIBUTION WIDTH (test code = RDW) 18.6 % 11.6-16. 2 H RED CELL DISTRIBUTION WIDTH SD (test code = RDW-SD) 62.8 fL 37 .0-51.0 H PLATELET COUNT (test code = PLT) 64 K/mm3 150-450 L MEAN PLATELET VOLUME (test code = MPV) 11.5 fL 6.7-11.0 H IMMATURE GRANULOCYTE % (test code = IG%) 6.8 % 0.0-5.0 H "The appearance of immature granulocytes (myelocytes,pro-myelocytes, meta-myelocytes) in the peripheral blood ofnon- individuals can indicate a response toinfection, inflammation, or other stimulus to the bonemarrow" NUCLEATED RBC % (test code = NRBC%) 0.3 % 0-0 H NEUTROPHIL # (test code = NT#) 5.42 K/mm3 1.8-7.7 N IMMATURE GRANULOCYTE # (test code = IG#) 0.43 x10 3/uL 0-0.03 H LYMPHOCYTE # (test code = LY#) 0.31 K/mm3 1.0-5.0 L MONOCYTE # (test code = MO#) 0.18 K/mm3 0-0.8 N EOSINOPHIL # (test code = EO#) 0.00 K/mm3 0.0-0.5 N BASOPHIL # (test code = BA#) 0.01 K/mm3 0.0-0.2 N NUCLEATED RBC # (test code = NRBC#) 0.02 K/mm3 0.0-0.1 N MANUAL DIFF REQUIRED (test code = MDIFF) YES STAIN ACCEPTABILITY (test code = STN ACCEPTABLE) TOTAL CELLS COUNTED (test code = TCC) #CELLS SEGMENTED NEUTROPHILS (test code = SEG) % 39-69 LYMPHOCYTE (test code = LYMPH) % 25-55 MONOCYTE (test code = MON) % 0-10 EOSINOPHIL (test code = EOS) % 0.0-5.0 MORPHOLOGY COMMENT (test code = MOC) PLATELET ESTIMATE (test code = PLTEST) PLATELET MORPHOLOGY (test code = PLTMORPH) PER SABINE PALOMARES [id number] COME BACK LATER V.LAB.KP2 [id number] W/MANUAL DIFF 2019-03-25 12:45:00* Test Item Value Reference Range Interpretation Comments WHITE BLOOD CELL (test code = WBC) 6.4 K/mm3 4.5-12.5 N RED BLOOD CELL (test code = RBC) 2.36 mill/mm3 3.7-5.2 L HEMOGLOBIN (test code = HGB) 6.6 gram/dL 11.5-15.5 L HEMATOCRIT (test code = HCT) 22.2 % 36.0-46.0 L MEAN CELL VOLUME (test code = MCV) 94.1 fL 80-98 N MEAN CELL HGB (test code = MCH) 28.0 picogram 27.0-33.0 N MEAN CELL HGB CONCETRATION (test code = MCHC) 29.7 gram/dL 33.0-36. 0 L RED CELL DISTRIBUTION WIDTH (test code = RDW) 18.6 % 11.6-16. 2 H RED CELL DISTRIBUTION WIDTH SD (test code = RDW-SD) 62.8 fL 37 .0-51.0 H PLATELET COUNT (test code = PLT) 64 K/mm3 150-450 L MEAN PLATELET VOLUME (test code = MPV) 11.5 fL 6.7-11.0 H IMMATURE GRANULOCYTE % (test code = IG%) 6.8 % 0.0-5.0 H "The appearance of immature granulocytes (myelocytes,pro-myelocytes, meta-myelocytes) in the peripheral blood ofnon- individuals can indicate a response toinfection, inflammation, or other stimulus to the bonemarrow" NUCLEATED RBC % (test code = NRBC%) 0.3 % 0-0 H NEUTROPHIL # (test code = NT#) 5.42 K/mm3 1.8-7.7 N IMMATURE GRANULOCYTE # (test code = IG#) 0.43 x10 3/uL 0-0.03 H LYMPHOCYTE # (test code = LY#) 0.31 K/mm3 1.0-5.0 L MONOCYTE # (test code = MO#) 0.18 K/mm3 0-0.8 N EOSINOPHIL # (test code = EO#) 0.00 K/mm3 0.0-0.5 N BASOPHIL # (test code = BA#) 0.01 K/mm3 0.0-0.2 N NUCLEATED RBC # (test code = NRBC#) 0.02 K/mm3 0.0-0.1 N MANUAL DIFF REQUIRED (test code = MDIFF) YES STAIN ACCEPTABILITY (test code = STN ACCEPTABLE) TOTAL CELLS COUNTED (test code = TCC) #CELLS SEGMENTED NEUTROPHILS (test code = SEG) % 39-69 LYMPHOCYTE (test code = LYMPH) % 25-55 MONOCYTE (test code = MON) % 0-10 MORPHOLOGY COMMENT (test code = MOC) PLATELET ESTIMATE (test code = PLTEST) PLATELET MORPHOLOGY (test code = PLTMORPH) PER SABINE PALOMARES [id number] COME BACK LATER V.LAB.2 03/25/[id number] W/MANUAL DIFF 2019-03-25 12:45:00* Test Item Value Reference Range Interpretation Comments WHITE BLOOD CELL (test code = WBC) 6.4 K/mm3 4.5-12.5 N RED BLOOD CELL (test code = RBC) 2.36 mill/mm3 3.7-5.2 L HEMOGLOBIN (test code = HGB) 6.6 gram/dL 11.5-15.5 L HEMATOCRIT (test code = HCT) 22.2 % 36.0-46.0 L MEAN CELL VOLUME (test code = MCV) 94.1 fL 80-98 N MEAN CELL HGB (test code = MCH) 28.0 picogram 27.0-33.0 N MEAN CELL HGB CONCETRATION (test code = MCHC) 29.7 gram/dL 33.0-36. 0 L RED CELL DISTRIBUTION WIDTH (test code = RDW) 18.6 % 11.6-16. 2 H RED CELL DISTRIBUTION WIDTH SD (test code = RDW-SD) 62.8 fL 37 .0-51.0 H PLATELET COUNT (test code = PLT) 64 K/mm3 150-450 L MEAN PLATELET VOLUME (test code = MPV) 11.5 fL 6.7-11.0 H IMMATURE GRANULOCYTE % (test code = IG%) 6.8 % 0.0-5.0 H "The appearance of immature granulocytes (myelocytes,pro-myelocytes, meta-myelocytes) in the peripheral blood ofnon- individuals can indicate a response toinfection, inflammation, or other stimulus to the bonemarrow" NUCLEATED RBC % (test code = NRBC%) 0.3 % 0-0 H NEUTROPHIL # (test code = NT#) 5.42 K/mm3 1.8-7.7 N IMMATURE GRANULOCYTE # (test code = IG#) 0.43 x10 3/uL 0-0.03 H LYMPHOCYTE # (test code = LY#) 0.31 K/mm3 1.0-5.0 L MONOCYTE # (test code = MO#) 0.18 K/mm3 0-0.8 N EOSINOPHIL # (test code = EO#) 0.00 K/mm3 0.0-0.5 N BASOPHIL # (test code = BA#) 0.01 K/mm3 0.0-0.2 N NUCLEATED RBC # (test code = NRBC#) 0.02 K/mm3 0.0-0.1 N MANUAL DIFF REQUIRED (test code = MDIFF) YES STAIN ACCEPTABILITY (test code = STN ACCEPTABLE) TOTAL CELLS COUNTED (test code = TCC) #CELLS SEGMENTED NEUTROPHILS (test code = SEG) % 39-69 LYMPHOCYTE (test code = LYMPH) % 25-55 MONOCYTE (test code = MON) % 0-10 EOSINOPHIL (test code = EOS) % 0.0-5.0 CABOT RINGS (test code = CAB) MORPHOLOGY COMMENT (test code = MOC) PLATELET ESTIMATE (test code = PLTEST) PLATELET MORPHOLOGY (test code = PLTMORPH) PER SABINE PALOMARES [id number] COME BACK LATER V.LAB.KP2 03/25/[id number] W/AUTO DIFF 2019-03-25 00:36:00* Test Item Value Reference Range Interpretation Comments WHITE BLOOD CELL (test code = WBC) 6.5 K/mm3 4.5-12.5 N RED BLOOD CELL (test code = RBC) 2.44 mill/mm3 3.7-5.2 L HEMOGLOBIN (test code = HGB) 6.9 gram/dL 11.5-15.5 L HEMATOCRIT (test code = HCT) 23.1 % 36.0-46.0 L MEAN CELL VOLUME (test code = MCV) 94.7 fL 80-98 N MEAN CELL HGB (test code = MCH) 28.3 picogram 27.0-33.0 N MEAN CELL HGB CONCETRATION (test code = MCHC) 29.9 gram/dL 33.0-36. 0 L RED CELL DISTRIBUTION WIDTH (test code = RDW) 18.7 % 11.6-16. 2 H RED CELL DISTRIBUTION WIDTH SD (test code = RDW-SD) 64.4 fL 37 .0-51.0 H PLATELET COUNT (test code = PLT) 81 K/mm3 150-450 L MEAN PLATELET VOLUME (test code = MPV) 12.3 fL 6.7-11.0 H NEUTROPHIL % (test code = NT%) 86.6 % 39.0-69.0 H IMMATURE GRANULOCYTE % (test code = IG%) 5.1 % 0.0-5.0 H "The appearance of immature granulocytes (myelocytes,pro-myelocytes, meta-myelocytes) in the peripheral blood ofnon- individuals can indicate a response toinfection, inflammation, or other stimulus to the bonemarrow" LYMPHOCYTE % (test code = LY%) 4.6 % 25.0-55.0 L MONOCYTE % (test code = MO%) 3.7 % 0.0-10.0 N EOSINOPHIL % (test code = EO%) 0.0 % 0.0-5.0 N BASOPHIL % (test code = BA%) 0.0 % 0.0-1.0 N NUCLEATED RBC % (test code = NRBC%) 0.0 % 0-0 N NEUTROPHIL # (test code = NT#) 5.61 K/mm3 1.8-7.7 N IMMATURE GRANULOCYTE # (test code = IG#) 0.33 x10 3/uL 0-0.03 H LYMPHOCYTE # (test code = LY#) 0.30 K/mm3 1.0-5.0 L MONOCYTE # (test code = MO#) 0.24 K/mm3 0-0.8 N EOSINOPHIL # (test code = EO#) 0.00 K/mm3 0.0-0.5 N BASOPHIL # (test code = BA#) 0.00 K/mm3 0.0-0.2 N NUCLEATED RBC # (test code = NRBC#) 0.00 K/mm3 0.0-0.1 N MANUAL DIFF REQUIRED (test code = MDIFF) NO, ONLY SCAN NEEDED DIFFERENTIAL [id number] 00:36:00* Test Item Value Reference Range Interpretation Comments STAIN ACCEPTABILITY (test code = STN ACCEPTABLE) STAIN ACCEPTABLE HYPOCHROMIA (test code = HYPO) 1+ POIKILOCYTOSIS (test code = POIK) 1+ PLATELET ESTIMATE (test code = PLTEST) DECREASED PLATELET MORPHOLOGY (test code = PLTMORPH) NORMAL BASIC METABOLIC [id number] 15:39:00* Test Item Value Reference Range Interpretation Comments SODIUM (test code = NA) 142 mmol/L 136-145 N POTASSIUM (test code = K) 4.5 mmol/L 3.5-5.1 N CHLORIDE (test code = CL) 109.0 mmol/L 98-107 H CARBON DIOXIDE (test code = CO2) 21.0 mmol/L 21-32 N ANION GAP (test code = GAP) 16.5 10-20 N GLUCOSE (test code = GLU) 216 mg/dL 74-106 H BLOOD UREA NITROGEN (test code = BUN) 70 mg/dL 7-18 H GLOMERULAR FILTRATION RATE (test code = GFR) 20 mL/min >=60 Estimated GFR by using Modified MDRD formula.Chronic kidney disease is defined as either kidney damageor GFR <60 mL/min/1.73 m2 for >3 months. CREATININE (test code = CREAT) 2.50 mg/dL 0.55-1.02 H Note change in reference range due to change in reagent. BUN/CREATININE RATIO (test code = BUN/CREA) 27.7 10-20 H CALCIUM (test code = CA) 8.2 mg/dL 8.5-10.1 L CBC W/AUTO [id number] 15:30:00* Test Item Value Reference Range Interpretation Comments WHITE BLOOD CELL (test code = WBC) 6.5 K/mm3 4.5-12.5 N RED BLOOD CELL (test code = RBC) 2.44 mill/mm3 3.7-5.2 L HEMOGLOBIN (test code = HGB) 6.9 gram/dL 11.5-15.5 L HEMATOCRIT (test code = HCT) 23.1 % 36.0-46.0 L MEAN CELL VOLUME (test code = MCV) 94.7 fL 80-98 N MEAN CELL HGB (test code = MCH) 28.3 picogram 27.0-33.0 N MEAN CELL HGB CONCETRATION (test code = MCHC) 29.9 gram/dL 33.0-36. 0 L RED CELL DISTRIBUTION WIDTH (test code = RDW) 18.7 % 11.6-16. 2 H RED CELL DISTRIBUTION WIDTH SD (test code = RDW-SD) 64.4 fL 37 .0-51.0 H PLATELET COUNT (test code = PLT) 81 K/mm3 150-450 L MEAN PLATELET VOLUME (test code = MPV) 12.3 fL 6.7-11.0 H NEUTROPHIL % (test code = NT%) 86.6 % 39.0-69.0 H IMMATURE GRANULOCYTE % (test code = IG%) 5.1 % 0.0-5.0 H "The appearance of immature granulocytes (myelocytes,pro-myelocytes, meta-myelocytes) in the peripheral blood ofnon- individuals can indicate a response toinfection, inflammation, or other stimulus to the bonemarrow" LYMPHOCYTE % (test code = LY%) 4.6 % 25.0-55.0 L MONOCYTE % (test code = MO%) 3.7 % 0.0-10.0 N EOSINOPHIL % (test code = EO%) 0.0 % 0.0-5.0 N BASOPHIL % (test code = BA%) 0.0 % 0.0-1.0 N NUCLEATED RBC % (test code = NRBC%) 0.0 % 0-0 N NEUTROPHIL # (test code = NT#) 5.61 K/mm3 1.8-7.7 N IMMATURE GRANULOCYTE # (test code = IG#) 0.33 x10 3/uL 0-0.03 H LYMPHOCYTE # (test code = LY#) 0.30 K/mm3 1.0-5.0 L MONOCYTE # (test code = MO#) 0.24 K/mm3 0-0.8 N EOSINOPHIL # (test code = EO#) 0.00 K/mm3 0.0-0.5 N BASOPHIL # (test code = BA#) 0.00 K/mm3 0.0-0.2 N NUCLEATED RBC # (test code = NRBC#) 0.00 K/mm3 0.0-0.1 N MANUAL DIFF REQUIRED (test code = MDIFF) NO, ONLY SCAN NEEDED DIFFERENTIAL [id number] 15:30:00* Test Item Value Reference Range Interpretation Comments STAIN ACCEPTABILITY (test code = STN ACCEPTABLE) CABOT RINGS (test code = CAB) MORPHOLOGY COMMENT (test code = MOC) PLATELET ESTIMATE (test code = PLTEST) PLATELET MORPHOLOGY (test code = PLTMORPH) CBC W/AUTO [id number] 15:30:00* Test Item Value Reference Range Interpretation Comments WHITE BLOOD CELL (test code = WBC) 6.5 K/mm3 4.5-12.5 N RED BLOOD CELL (test code = RBC) 2.44 mill/mm3 3.7-5.2 L HEMOGLOBIN (test code = HGB) 6.9 gram/dL 11.5-15.5 L HEMATOCRIT (test code = HCT) 23.1 % 36.0-46.0 L MEAN CELL VOLUME (test code = MCV) 94.7 fL 80-98 N MEAN CELL HGB (test code = MCH) 28.3 picogram 27.0-33.0 N MEAN CELL HGB CONCETRATION (test code = MCHC) 29.9 gram/dL 33.0-36. 0 L RED CELL DISTRIBUTION WIDTH (test code = RDW) 18.7 % 11.6-16. 2 H RED CELL DISTRIBUTION WIDTH SD (test code = RDW-SD) 64.4 fL 37 .0-51.0 H PLATELET COUNT (test code = PLT) 81 K/mm3 150-450 L MEAN PLATELET VOLUME (test code = MPV) 12.3 fL 6.7-11.0 H NEUTROPHIL % (test code = NT%) 86.6 % 39.0-69.0 H IMMATURE GRANULOCYTE % (test code = IG%) 5.1 % 0.0-5.0 H "The appearance of immature granulocytes (myelocytes,pro-myelocytes, meta-myelocytes) in the peripheral blood ofnon- individuals can indicate a response toinfection, inflammation, or other stimulus to the bonemarrow" LYMPHOCYTE % (test code = LY%) 4.6 % 25.0-55.0 L MONOCYTE % (test code = MO%) 3.7 % 0.0-10.0 N EOSINOPHIL % (test code = EO%) 0.0 % 0.0-5.0 N BASOPHIL % (test code = BA%) 0.0 % 0.0-1.0 N NUCLEATED RBC % (test code = NRBC%) 0.0 % 0-0 N NEUTROPHIL # (test code = NT#) 5.61 K/mm3 1.8-7.7 N IMMATURE GRANULOCYTE # (test code = IG#) 0.33 x10 3/uL 0-0.03 H LYMPHOCYTE # (test code = LY#) 0.30 K/mm3 1.0-5.0 L MONOCYTE # (test code = MO#) 0.24 K/mm3 0-0.8 N EOSINOPHIL # (test code = EO#) 0.00 K/mm3 0.0-0.5 N BASOPHIL # (test code = BA#) 0.00 K/mm3 0.0-0.2 N NUCLEATED RBC # (test code = NRBC#) 0.00 K/mm3 0.0-0.1 N MANUAL DIFF REQUIRED (test code = MDIFF) NO, ONLY SCAN NEEDED DIFFERENTIAL [id number] 15:30:00* Test Item Value Reference Range Interpretation Comments STAIN ACCEPTABILITY (test code = STN ACCEPTABLE) CABOT RINGS (test code = CAB) MORPHOLOGY COMMENT (test code = MOC) PLATELET ESTIMATE (test code = PLTEST) PLATELET MORPHOLOGY (test code = PLTMORPH) CBC W/AUTO [id number] 15:30:00* Test Item Value Reference Range Interpretation Comments WHITE BLOOD CELL (test code = WBC) 6.5 K/mm3 4.5-12.5 N RED BLOOD CELL (test code = RBC) 2.44 mill/mm3 3.7-5.2 L HEMOGLOBIN (test code = HGB) 6.9 gram/dL 11.5-15.5 L HEMATOCRIT (test code = HCT) 23.1 % 36.0-46.0 L MEAN CELL VOLUME (test code = MCV) 94.7 fL 80-98 N MEAN CELL HGB (test code = MCH) 28.3 picogram 27.0-33.0 N MEAN CELL HGB CONCETRATION (test code = MCHC) 29.9 gram/dL 33.0-36. 0 L RED CELL DISTRIBUTION WIDTH (test code = RDW) 18.7 % 11.6-16. 2 H RED CELL DISTRIBUTION WIDTH SD (test code = RDW-SD) 64.4 fL 37 .0-51.0 H PLATELET COUNT (test code = PLT) 81 K/mm3 150-450 L MEAN PLATELET VOLUME (test code = MPV) 12.3 fL 6.7-11.0 H NEUTROPHIL % (test code = NT%) 86.6 % 39.0-69.0 H IMMATURE GRANULOCYTE % (test code = IG%) 5.1 % 0.0-5.0 H "The appearance of immature granulocytes (myelocytes,pro-myelocytes, meta-myelocytes) in the peripheral blood ofnon- individuals can indicate a response toinfection, inflammation, or other stimulus to the bonemarrow" LYMPHOCYTE % (test code = LY%) 4.6 % 25.0-55.0 L MONOCYTE % (test code = MO%) 3.7 % 0.0-10.0 N EOSINOPHIL % (test code = EO%) 0.0 % 0.0-5.0 N BASOPHIL % (test code = BA%) 0.0 % 0.0-1.0 N NUCLEATED RBC % (test code = NRBC%) 0.0 % 0-0 N NEUTROPHIL # (test code = NT#) 5.61 K/mm3 1.8-7.7 N IMMATURE GRANULOCYTE # (test code = IG#) 0.33 x10 3/uL 0-0.03 H LYMPHOCYTE # (test code = LY#) 0.30 K/mm3 1.0-5.0 L MONOCYTE # (test code = MO#) 0.24 K/mm3 0-0.8 N EOSINOPHIL # (test code = EO#) 0.00 K/mm3 0.0-0.5 N BASOPHIL # (test code = BA#) 0.00 K/mm3 0.0-0.2 N NUCLEATED RBC # (test code = NRBC#) 0.00 K/mm3 0.0-0.1 N MANUAL DIFF REQUIRED (test code = MDIFF) NO, ONLY SCAN NEEDED DIFFERENTIAL [id number] 15:30:00* Test Item Value Reference Range Interpretation Comments STAIN ACCEPTABILITY (test code = STN ACCEPTABLE) MORPHOLOGY COMMENT (test code = MOC) PLATELET ESTIMATE (test code = PLTEST) PLATELET MORPHOLOGY (test code = PLTMORPH) CBC W/AUTO [id number] 15:30:00* Test Item Value Reference Range Interpretation Comments WHITE BLOOD CELL (test code = WBC) 6.5 K/mm3 4.5-12.5 N RED BLOOD CELL (test code = RBC) 2.44 mill/mm3 3.7-5.2 L HEMOGLOBIN (test code = HGB) 6.9 gram/dL 11.5-15.5 L HEMATOCRIT (test code = HCT) 23.1 % 36.0-46.0 L MEAN CELL VOLUME (test code = MCV) 94.7 fL 80-98 N MEAN CELL HGB (test code = MCH) 28.3 picogram 27.0-33.0 N MEAN CELL HGB CONCETRATION (test code = MCHC) 29.9 gram/dL 33.0-36. 0 L RED CELL DISTRIBUTION WIDTH (test code = RDW) 18.7 % 11.6-16. 2 H RED CELL DISTRIBUTION WIDTH SD (test code = RDW-SD) 64.4 fL 37 .0-51.0 H PLATELET COUNT (test code = PLT) 81 K/mm3 150-450 L MEAN PLATELET VOLUME (test code = MPV) 12.3 fL 6.7-11.0 H NEUTROPHIL % (test code = NT%) 86.6 % 39.0-69.0 H IMMATURE GRANULOCYTE % (test code = IG%) 5.1 % 0.0-5.0 H "The appearance of immature granulocytes (myelocytes,pro-myelocytes, meta-myelocytes) in the peripheral blood ofnon- individuals can indicate a response toinfection, inflammation, or other stimulus to the bonemarrow" LYMPHOCYTE % (test code = LY%) 4.6 % 25.0-55.0 L MONOCYTE % (test code = MO%) 3.7 % 0.0-10.0 N EOSINOPHIL % (test code = EO%) 0.0 % 0.0-5.0 N BASOPHIL % (test code = BA%) 0.0 % 0.0-1.0 N NUCLEATED RBC % (test code = NRBC%) 0.0 % 0-0 N NEUTROPHIL # (test code = NT#) 5.61 K/mm3 1.8-7.7 N IMMATURE GRANULOCYTE # (test code = IG#) 0.33 x10 3/uL 0-0.03 H LYMPHOCYTE # (test code = LY#) 0.30 K/mm3 1.0-5.0 L MONOCYTE # (test code = MO#) 0.24 K/mm3 0-0.8 N EOSINOPHIL # (test code = EO#) 0.00 K/mm3 0.0-0.5 N BASOPHIL # (test code = BA#) 0.00 K/mm3 0.0-0.2 N NUCLEATED RBC # (test code = NRBC#) 0.00 K/mm3 0.0-0.1 N MANUAL DIFF REQUIRED (test code = MDIFF) NO, ONLY SCAN NEEDED DIFFERENTIAL [id number] 15:30:00* Test Item Value Reference Range Interpretation Comments STAIN ACCEPTABILITY (test code = STN ACCEPTABLE) CABOT RINGS (test code = CAB) MORPHOLOGY COMMENT (test code = MOC) PLATELET ESTIMATE (test code = PLTEST) PLATELET MORPHOLOGY (test code = PLTMORPH) Blood [id number] 14:22:00* Test Item Value Reference Range Interpretation Comments Blood Culture (test code = [id number]) NO GROWTH AFTER 5 DAYS, FINAL REPORT [facility] METABOLIC [id number] 11:09:00 * Test Item Value Reference Range Interpretation Comments SODIUM (test code = NA) 146 mmol/L 136-145 H POTASSIUM (test code = K) 5.0 mmol/L 3.5-5.1 N CHLORIDE (test code = CL) 117.0 mmol/L 98-107 H CARBON DIOXIDE (test code = CO2) 19.0 mmol/L 21-32 L ANION GAP (test code = GAP) 15.0 10-20 N GLUCOSE (test code = GLU) 155 mg/dL 74-106 H BLOOD UREA NITROGEN (test code = BUN) 63 mg/dL 7-18 H GLOMERULAR FILTRATION RATE (test code = GFR) 20 mL/min >=60 Estimated GFR by using Modified MDRD formula.Chronic kidney disease is defined as either kidney damageor GFR <60 mL/min/1.73 m2 for >3 months. CREATININE (test code = CREAT) 2.50 mg/dL 0.55-1.02 H Note change in reference range due to change in reagent. BUN/CREATININE RATIO (test code = BUN/CREA) 24.9 10-20 H CALCIUM (test code = CA) 8.5 mg/dL 8.5-10.1 N PATIENT DOES NOT WANT TO BE DISTURB UNTIL RICHARD SWAN NOTIFIED CA V.LAB.EP 03/23/19 0656.BASIC METABOLIC [id number] 11:08:00* Test Item Value Reference Range Interpretation Comments SODIUM (test code = NA) 146 mmol/L 136-145 H POTASSIUM (test code = K) 5.0 mmol/L 3.5-5.1 N CHLORIDE (test code = CL) 117.0 mmol/L 98-107 H CARBON DIOXIDE (test code = CO2) mmol/L 21-32 ANION GAP (test code = GAP) 10-20 GLUCOSE (test code = GLU) mg/dL 74-106 BLOOD UREA NITROGEN (test code = BUN) mg/dL 7-18 GLOMERULAR FILTRATION RATE (test code = GFR) mL/min >=60 CREATININE (test code = CREAT) mg/dL 0.55-1.02 BUN/CREATININE RATIO (test code = BUN/CREA) 10-20 CALCIUM (test code = CA) mg/dL 8.5-10.1 PATIENT DOES NOT WANT TO BE DISTURB UNTIL BREFAST R N SOSA NOTIFIED CA V.LAB.EP 03/23/19 0656.BASIC METABOLIC [id number] 20:05:00* Test Item Value Reference Range Interpretation Comments SODIUM (test code = NA) 146 mmol/L 136-145 H POTASSIUM (test code = K) 5.3 mmol/L 3.5-5.1 H CHLORIDE (test code = CL) 119.0 mmol/L 98-107 H CARBON DIOXIDE (test code = CO2) 15.0 mmol/L 21-32 L ANION GAP (test code = GAP) 17.3 10-20 N GLUCOSE (test code = GLU) 145 mg/dL 74-106 H BLOOD UREA NITROGEN (test code = BUN) 60 mg/dL 7-18 H GLOMERULAR FILTRATION RATE (test code = GFR) 22 mL/min >=60 Estimated GFR by using Modified MDRD formula.Chronic kidney disease is defined as either kidney damageor GFR <60 mL/min/1.73 m2 for >3 months. CREATININE (test code = CREAT) 2.30 mg/dL 0.55-1.02 H Note change in reference range due to change in reagent. BUN/CREATININE RATIO (test code = BUN/CREA) 26.1 10-20 H CALCIUM (test code = CA) 8.9 mg/dL 8.5-10.1 N PT REFUSED SPOKE TO SABINE [id number] V.LAB.SE 03/22/19 1528BASIC METABOLIC PANEL 2019-03-22 19:55:00* Test Item Value Reference Range Interpretation Comments SODIUM (test code = NA) 146 mmol/L 136-145 H POTASSIUM (test code = K) 5.3 mmol/L 3.5-5.1 H CHLORIDE (test code = CL) 119.0 mmol/L 98-107 H CARBON DIOXIDE (test code = CO2) mmol/L 21-32 ANION GAP (test code = GAP) 10-20 GLUCOSE (test code = GLU) mg/dL 74-106 BLOOD UREA NITROGEN (test code = BUN) mg/dL 7-18 GLOMERULAR FILTRATION RATE (test code = GFR) mL/min >=60 CREATININE (test code = CREAT) mg/dL 0.55-1.02 BUN/CREATININE RATIO (test code = BUN/CREA) 10-20 CALCIUM (test code = CA) 8.9 mg/dL 8.5-10.1 N PT REFUSED SPOKE TO RN [id number] V.LAB.SE 03/22/19 1528- XR ABDOMEN AP 1 V 2019-03-22 16:05:00 FAX: Fabiana Melton MD [phone] [place]: St: ADM FAX: Shirin Luong MD Name: SIOBHAN BARBOSA [facility] : 1965 Age/S: 54/F [address] [facility] Unit #: [id number] Loc: [place] [address] Phys: Fabiana Drake MD Acct: [id number] Dis Date: Status: ADM IN PHONE #: [phone] Exam Date: 03/22/2019 1500 FAX #: [phone] Reason: URETERAL STENT EXAMS: CPT CODE: [id number] XR ABDOMEN AP 1 V 07777 HISTORY: Ureteral stent. COMPARISON: CT scan from [...] for definitive evaluation as clinically indicated. at 1605 Reported and signed by: Krystian Johnson M.D. CC: Fabiana Drake MD; Shirin Knott Technologist: RT KAREN(R); RT THEODORE(R) [facility] Date/Time/By: 03/22/2019 (7129) : By: [email or web address] Orig Print D/T: S: 0 03/22/2019 (8925) PAGE 1 Signed Re port BLOOD UREA [id number] 12:05:00* Test Item Value Reference Range Interpretation Comments BLOOD UREA NITROGEN (test code = BUN) 65 mg/dL 7-18 H RESULT VERIFIED BY REPEAT ANALYSIS [id number] 12:05:00* Test Item Value Reference Range Interpretation Comments CREATININE (test code = CREAT) 2.30 mg/dL 0.55-1.02 H Note change in reference range due to change in reagent. [id number] 12:02:00* Test Item Value Reference Range Interpretation Comments VANCOMYCIN (test code = VANCO) 18.8 UG/ML 5.0-45.0 N CBC W/MANUAL [id number] 13:21:00* Test Item Value Reference Range Interpretation Comments WHITE BLOOD CELL (test code = WBC) 8.1 K/mm3 4.5-12.5 N RED BLOOD CELL (test code = RBC) 2.87 mill/mm3 3.7-5.2 L HEMOGLOBIN (test code = HGB) 8.0 gram/dL 11.5-15.5 L HEMATOCRIT (test code = HCT) 27.3 % 36.0-46.0 L MEAN CELL VOLUME (test code = MCV) 95.1 fL 80-98 N MEAN CELL HGB (test code = MCH) 27.9 picogram 27.0-33.0 N MEAN CELL HGB CONCETRATION (test code = MCHC) 29.3 gram/dL 33.0-36. 0 L RED CELL DISTRIBUTION WIDTH (test code = RDW) 19.0 % 11.6-16. 2 H RED CELL DISTRIBUTION WIDTH SD (test code = RDW-SD) 66.8 fL 37 .0-51.0 H PLATELET COUNT (test code = PLT) 92 K/mm3 150-450 L MEAN PLATELET VOLUME (test code = MPV) 12.2 fL 6.7-11.0 H IMMATURE GRANULOCYTE % (test code = IG%) 1.5 % 0.0-5.0 N NUCLEATED RBC % (test code = NRBC%) 0.0 % 0-0 N NEUTROPHIL # (test code = NT#) 7.44 K/mm3 1.8-7.7 N IMMATURE GRANULOCYTE # (test code = IG#) 0.12 x10 3/uL 0-0.03 H LYMPHOCYTE # (test code = LY#) 0.28 K/mm3 1.0-5.0 L MONOCYTE # (test code = MO#) 0.27 K/mm3 0-0.8 N EOSINOPHIL # (test code = EO#) 0.00 K/mm3 0.0-0.5 N BASOPHIL # (test code = BA#) 0.00 K/mm3 0.0-0.2 N NUCLEATED RBC # (test code = NRBC#) 0.00 K/mm3 0.0-0.1 N MANUAL DIFF REQUIRED (test code = MDIFF) YES STAIN ACCEPTABILITY (test code = STN ACCEPTABLE) STAIN ACCEPTABLE TOTAL CELLS COUNTED (test code = TCC) 115 #CELLS SEGMENTED NEUTROPHILS (test code = SEG) 89.6 % 39-69 H BAND NEUTROPHIL (test code = BAND) 7.8 % 0-10 N LYMPHOCYTE (test code = LYMPH) 1.7 % 25-55 L REACTIVE LYMPH (test code = RELYMPH) 0 % MONOCYTE (test code = MON) 0.9 % 0-10 N EOSINOPHIL (test code = EOS) 0 % 0.0-5.0 N BASOPHIL (test code = BASO) 0 % 0-1.0 N METAMYELOCYTE (test code = META) 0 % 0-0 N MYELOCYTE (test code = MYELO) 0 % 0.0-0.0 N PROMYELOCYTE (test code = PROM) 0 % 0-0 N ANISOCYTOSIS (test code = ANISO) 3+ MACROCYTOSIS (test code = MACR) 3+ PLATELET ESTIMATE (test code = PLTEST) DECREASED PLATELET MORPHOLOGY (test code = PLTMORPH) NORMAL IMMATURE FORMS (test code = IMMAT) 0 % 0-0 N COMPREHENSIVE METABOLIC [id number] 13:02:00* Test Item Value Reference Range Interpretation Comments SODIUM (test code = NA) 146 mmol/L 136-145 H POTASSIUM (test code = K) 5.1 mmol/L 3.5-5.1 N CHLORIDE (test code = CL) 119.0 mmol/L 98-107 H CARBON DIOXIDE (test code = CO2) 17.0 mmol/L 21-32 L ANION GAP (test code = GAP) 15.1 10-20 N GLUCOSE (test code = GLU) 153 mg/dL 74-106 H BLOOD UREA NITROGEN (test code = BUN) 54 mg/dL 7-18 H GLOMERULAR FILTRATION RATE (test code = GFR) 22 mL/min >=60 Estimated GFR by using Modified MDRD formula.Chronic kidney disease is defined as either kidney damageor GFR <60 mL/min/1.73 m2 for >3 months. CREATININE (test code = CREAT) 2.30 mg/dL 0.55-1.02 H Note change in reference range due to change in reagent. BUN/CREATININE RATIO (test code = BUN/CREA) 23.5 10-20 H TOTAL PROTEIN (test code = PROT) 7.3 gram/dL 6.4-8.2 N ALBUMIN (test code = ALB) 2.2 g/dL 3.4-5.0 L GLOBULIN (test code = GLOB) 5.1 gram/dL 2.7-4.2 H ALBUMIN/GLOBULIN RATIO (test code = A/G) 0.4 0.75-1.50 L CALCIUM (test code = CA) 8.8 mg/dL 8.5-10.1 N BILIRUBIN TOTAL (test code = BILT) 0.70 mg/dL 0.0-1.0 N SGOT/AST (test code = AST) 34 IUnit/L 15-37 N SGPT/ALT (test code = ALT) 41 IUnit/L 12-78 N ALKALINE PHOSPHATASE TOTAL (test code = ALKP) 365 IUnit/L 45-117 H Note change in reference range due to change in reagent. COMPREHENSIVE METABOLIC [id number] 12:52:00* Test Item Value Reference Range Interpretation Comments SODIUM (test code = NA) 146 mmol/L 136-145 H POTASSIUM (test code = K) 5.1 mmol/L 3.5-5.1 N CHLORIDE (test code = CL) 119.0 mmol/L 98-107 H CARBON DIOXIDE (test code = CO2) mmol/L 21-32 ANION GAP (test code = GAP) 10-20 GLUCOSE (test code = GLU) mg/dL 74-106 BLOOD UREA NITROGEN (test code = BUN) mg/dL 7-18 GLOMERULAR FILTRATION RATE (test code = GFR) mL/min >=60 CREATININE (test code = CREAT) mg/dL 0.55-1.02 BUN/CREATININE RATIO (test code = BUN/CREA) 10-20 TOTAL PROTEIN (test code = PROT) gram/dL 6.4-8.2 ALBUMIN (test code = ALB) g/dL 3.4-5.0 GLOBULIN (test code = GLOB) gram/dL 2.7-4.2 ALBUMIN/GLOBULIN RATIO (test code = A/G) 0.75-1.50 CALCIUM (test code = CA) mg/dL 8.5-10.1 BILIRUBIN TOTAL (test code = BILT) mg/dL 0.0-1.0 SGOT/AST (test code = AST) IUnit/L 15-37 SGPT/ALT (test code = ALT) IUnit/L 12-78 ALKALINE PHOSPHATASE TOTAL (test code = ALKP) IUnit/L 45-117 CBC W/MANUAL [id number] 12:37:00* Test Item Value Reference Range Interpretation Comments WHITE BLOOD CELL (test code = WBC) 8.1 K/mm3 4.5-12.5 N RED BLOOD CELL (test code = RBC) 2.87 mill/mm3 3.7-5.2 L HEMOGLOBIN (test code = HGB) 8.0 gram/dL 11.5-15.5 L HEMATOCRIT (test code = HCT) 27.3 % 36.0-46.0 L MEAN CELL VOLUME (test code = MCV) 95.1 fL 80-98 N MEAN CELL HGB (test code = MCH) 27.9 picogram 27.0-33.0 N MEAN CELL HGB CONCETRATION (test code = MCHC) 29.3 gram/dL 33.0-36. 0 L RED CELL DISTRIBUTION WIDTH (test code = RDW) 19.0 % 11.6-16. 2 H RED CELL DISTRIBUTION WIDTH SD (test code = RDW-SD) 66.8 fL 37 .0-51.0 H PLATELET COUNT (test code = PLT) 92 K/mm3 150-450 L MEAN PLATELET VOLUME (test code = MPV) 12.2 fL 6.7-11.0 H IMMATURE GRANULOCYTE % (test code = IG%) 1.5 % 0.0-5.0 N NUCLEATED RBC % (test code = NRBC%) 0.0 % 0-0 N NEUTROPHIL # (test code = NT#) 7.44 K/mm3 1.8-7.7 N IMMATURE GRANULOCYTE # (test code = IG#) 0.12 x10 3/uL 0-0.03 H LYMPHOCYTE # (test code = LY#) 0.28 K/mm3 1.0-5.0 L MONOCYTE # (test code = MO#) 0.27 K/mm3 0-0.8 N EOSINOPHIL # (test code = EO#) 0.00 K/mm3 0.0-0.5 N BASOPHIL # (test code = BA#) 0.00 K/mm3 0.0-0.2 N NUCLEATED RBC # (test code = NRBC#) 0.00 K/mm3 0.0-0.1 N MANUAL DIFF REQUIRED (test code = MDIFF) YES STAIN ACCEPTABILITY (test code = STN ACCEPTABLE) TOTAL CELLS COUNTED (test code = TCC) #CELLS SEGMENTED NEUTROPHILS (test code = SEG) % 39-69 LYMPHOCYTE (test code = LYMPH) % 25-55 MONOCYTE (test code = MON) % 0-10 EOSINOPHIL (test code = EOS) % 0.0-5.0 CABOT RINGS (test code = CAB) MORPHOLOGY COMMENT (test code = MOC) PLATELET ESTIMATE (test code = PLTEST) PLATELET MORPHOLOGY (test code = PLTMORPH) CBC W/MANUAL [id number] 12:37:00* Test Item Value Reference Range Interpretation Comments WHITE BLOOD CELL (test code = WBC) 8.1 K/mm3 4.5-12.5 N RED BLOOD CELL (test code = RBC) 2.87 mill/mm3 3.7-5.2 L HEMOGLOBIN (test code = HGB) 8.0 gram/dL 11.5-15.5 L HEMATOCRIT (test code = HCT) 27.3 % 36.0-46.0 L MEAN CELL VOLUME (test code = MCV) 95.1 fL 80-98 N MEAN CELL HGB (test code = MCH) 27.9 picogram 27.0-33.0 N MEAN CELL HGB CONCETRATION (test code = MCHC) 29.3 gram/dL 33.0-36. 0 L RED CELL DISTRIBUTION WIDTH (test code = RDW) 19.0 % 11.6-16. 2 H RED CELL DISTRIBUTION WIDTH SD (test code = RDW-SD) 66.8 fL 37 .0-51.0 H PLATELET COUNT (test code = PLT) 92 K/mm3 150-450 L MEAN PLATELET VOLUME (test code = MPV) 12.2 fL 6.7-11.0 H IMMATURE GRANULOCYTE % (test code = IG%) 1.5 % 0.0-5.0 N NUCLEATED RBC % (test code = NRBC%) 0.0 % 0-0 N NEUTROPHIL # (test code = NT#) 7.44 K/mm3 1.8-7.7 N IMMATURE GRANULOCYTE # (test code = IG#) 0.12 x10 3/uL 0-0.03 H LYMPHOCYTE # (test code = LY#) 0.28 K/mm3 1.0-5.0 L MONOCYTE # (test code = MO#) 0.27 K/mm3 0-0.8 N EOSINOPHIL # (test code = EO#) 0.00 K/mm3 0.0-0.5 N BASOPHIL # (test code = BA#) 0.00 K/mm3 0.0-0.2 N NUCLEATED RBC # (test code = NRBC#) 0.00 K/mm3 0.0-0.1 N MANUAL DIFF REQUIRED (test code = MDIFF) YES STAIN ACCEPTABILITY (test code = STN ACCEPTABLE) TOTAL CELLS COUNTED (test code = TCC) #CELLS SEGMENTED NEUTROPHILS (test code = SEG) % 39-69 LYMPHOCYTE (test code = LYMPH) % 25-55 MONOCYTE (test code = MON) % 0-10 EOSINOPHIL (test code = EOS) % 0.0-5.0 MORPHOLOGY COMMENT (test code = MOC) PLATELET ESTIMATE (test code = PLTEST) PLATELET MORPHOLOGY (test code = PLTMORPH) CBC W/MANUAL [id number] 12:37:00* Test Item Value Reference Range Interpretation Comments WHITE BLOOD CELL (test code = WBC) 8.1 K/mm3 4.5-12.5 N RED BLOOD CELL (test code = RBC) 2.87 mill/mm3 3.7-5.2 L HEMOGLOBIN (test code = HGB) 8.0 gram/dL 11.5-15.5 L HEMATOCRIT (test code = HCT) 27.3 % 36.0-46.0 L MEAN CELL VOLUME (test code = MCV) 95.1 fL 80-98 N MEAN CELL HGB (test code = MCH) 27.9 picogram 27.0-33.0 N MEAN CELL HGB CONCETRATION (test code = MCHC) 29.3 gram/dL 33.0-36. 0 L RED CELL DISTRIBUTION WIDTH (test code = RDW) 19.0 % 11.6-16. 2 H RED CELL DISTRIBUTION WIDTH SD (test code = RDW-SD) 66.8 fL 37 .0-51.0 H PLATELET COUNT (test code = PLT) 92 K/mm3 150-450 L MEAN PLATELET VOLUME (test code = MPV) 12.2 fL 6.7-11.0 H IMMATURE GRANULOCYTE % (test code = IG%) 1.5 % 0.0-5.0 N NUCLEATED RBC % (test code = NRBC%) 0.0 % 0-0 N NEUTROPHIL # (test code = NT#) 7.44 K/mm3 1.8-7.7 N IMMATURE GRANULOCYTE # (test code = IG#) 0.12 x10 3/uL 0-0.03 H LYMPHOCYTE # (test code = LY#) 0.28 K/mm3 1.0-5.0 L MONOCYTE # (test code = MO#) 0.27 K/mm3 0-0.8 N EOSINOPHIL # (test code = EO#) 0.00 K/mm3 0.0-0.5 N BASOPHIL # (test code = BA#) 0.00 K/mm3 0.0-0.2 N NUCLEATED RBC # (test code = NRBC#) 0.00 K/mm3 0.0-0.1 N MANUAL DIFF REQUIRED (test code = MDIFF) YES STAIN ACCEPTABILITY (test code = STN ACCEPTABLE) TOTAL CELLS COUNTED (test code = TCC) #CELLS SEGMENTED NEUTROPHILS (test code = SEG) % 39-69 LYMPHOCYTE (test code = LYMPH) % 25-55 MONOCYTE (test code = MON) % 0-10 MORPHOLOGY COMMENT (test code = MOC) PLATELET ESTIMATE (test code = PLTEST) PLATELET MORPHOLOGY (test code = PLTMORPH) CBC W/MANUAL [id number] 12:36:00* Test Item Value Reference Range Interpretation Comments WHITE BLOOD CELL (test code = WBC) 8.1 K/mm3 4.5-12.5 N RED BLOOD CELL (test code = RBC) 2.87 mill/mm3 3.7-5.2 L HEMOGLOBIN (test code = HGB) 8.0 gram/dL 11.5-15.5 L HEMATOCRIT (test code = HCT) 27.3 % 36.0-46.0 L MEAN CELL VOLUME (test code = MCV) 95.1 fL 80-98 N MEAN CELL HGB (test code = MCH) 27.9 picogram 27.0-33.0 N MEAN CELL HGB CONCETRATION (test code = MCHC) 29.3 gram/dL 33.0-36. 0 L RED CELL DISTRIBUTION WIDTH (test code = RDW) 19.0 % 11.6-16. 2 H RED CELL DISTRIBUTION WIDTH SD (test code = RDW-SD) 66.8 fL 37 .0-51.0 H PLATELET COUNT (test code = PLT) 92 K/mm3 150-450 L MEAN PLATELET VOLUME (test code = MPV) 12.2 fL 6.7-11.0 H IMMATURE GRANULOCYTE % (test code = IG%) 1.5 % 0.0-5.0 N NUCLEATED RBC % (test code = NRBC%) 0.0 % 0-0 N NEUTROPHIL # (test code = NT#) 7.44 K/mm3 1.8-7.7 N IMMATURE GRANULOCYTE # (test code = IG#) 0.12 x10 3/uL 0-0.03 H LYMPHOCYTE # (test code = LY#) 0.28 K/mm3 1.0-5.0 L MONOCYTE # (test code = MO#) 0.27 K/mm3 0-0.8 N EOSINOPHIL # (test code = EO#) 0.00 K/mm3 0.0-0.5 N BASOPHIL # (test code = BA#) 0.00 K/mm3 0.0-0.2 N NUCLEATED RBC # (test code = NRBC#) 0.00 K/mm3 0.0-0.1 N MANUAL DIFF REQUIRED (test code = MDIFF) YES STAIN ACCEPTABILITY (test code = STN ACCEPTABLE) TOTAL CELLS COUNTED (test code = TCC) #CELLS SEGMENTED NEUTROPHILS (test code = SEG) % 39-69 LYMPHOCYTE (test code = LYMPH) % 25-55 MONOCYTE (test code = MON) % 0-10 EOSINOPHIL (test code = EOS) % 0.0-5.0 CABOT RINGS (test code = CAB) MORPHOLOGY COMMENT (test code = MOC) PLATELET ESTIMATE (test code = PLTEST) PLATELET MORPHOLOGY (test code = PLTMORPH) CBC W/MANUAL [id number] 12:36:00* Test Item Value Reference Range Interpretation Comments WHITE BLOOD CELL (test code = WBC) 8.1 K/mm3 4.5-12.5 N RED BLOOD CELL (test code = RBC) 2.87 mill/mm3 3.7-5.2 L HEMOGLOBIN (test code = HGB) 8.0 gram/dL 11.5-15.5 L HEMATOCRIT (test code = HCT) 27.3 % 36.0-46.0 L MEAN CELL VOLUME (test code = MCV) 95.1 fL 80-98 N MEAN CELL HGB (test code = MCH) 27.9 picogram 27.0-33.0 N MEAN CELL HGB CONCETRATION (test code = MCHC) 29.3 gram/dL 33.0-36. 0 L RED CELL DISTRIBUTION WIDTH (test code = RDW) 19.0 % 11.6-16. 2 H RED CELL DISTRIBUTION WIDTH SD (test code = RDW-SD) 66.8 fL 37 .0-51.0 H PLATELET COUNT (test code = PLT) 92 K/mm3 150-450 L MEAN PLATELET VOLUME (test code = MPV) 12.2 fL 6.7-11.0 H IMMATURE GRANULOCYTE % (test code = IG%) 1.5 % 0.0-5.0 N NUCLEATED RBC % (test code = NRBC%) 0.0 % 0-0 N NEUTROPHIL # (test code = NT#) 7.44 K/mm3 1.8-7.7 N IMMATURE GRANULOCYTE # (test code = IG#) 0.12 x10 3/uL 0-0.03 H LYMPHOCYTE # (test code = LY#) 0.28 K/mm3 1.0-5.0 L MONOCYTE # (test code = MO#) 0.27 K/mm3 0-0.8 N EOSINOPHIL # (test code = EO#) 0.00 K/mm3 0.0-0.5 N BASOPHIL # (test code = BA#) 0.00 K/mm3 0.0-0.2 N NUCLEATED RBC # (test code = NRBC#) 0.00 K/mm3 0.0-0.1 N MANUAL DIFF REQUIRED (test code = MDIFF) YES STAIN ACCEPTABILITY (test code = STN ACCEPTABLE) TOTAL CELLS COUNTED (test code = TCC) #CELLS SEGMENTED NEUTROPHILS (test code = SEG) % 39-69 LYMPHOCYTE (test code = LYMPH) % 25-55 MONOCYTE (test code = MON) % 0-10 EOSINOPHIL (test code = EOS) % 0.0-5.0 CABOT RINGS (test code = CAB) MORPHOLOGY COMMENT (test code = MOC) PLATELET ESTIMATE (test code = PLTEST) PLATELET MORPHOLOGY (test code = PLTMORPH) - XR CHEST 1 [id number] 08:06:00 FAX: Shirin Luong MD [place]: B St: ADM FAX: Landy Altamirano [phone] Name: SIOBHAN BARBOSA [facility] : 1965 Age/S: 54/F [address] Unit #: [id number] Loc: V.2078 [place] [address] Phys: Landy Monte Acct: [id number] Dis Date: Status: ADM IN PHONE #: [phone] Exam Date: 03/21/2019 0800 FAX #: [phone] Reason: COPD EXAMS: CPT CODE: [id number] XR CHEST 1 V [id number] CLINICAL HISTORY: Severe COPD exacerbation TECHNIQUE: AP chest x- ray COMPARISON: Previous day. IMPRESSION: Patchy bilateral airspace opacification, greatest in the left upper lobe. Small right and moderate left pleural effusion. Cardiomegaly with pulmonary congestion. at 0806 Reported and signed by: Nguyen Krishna D.O. CC: Shirin Knott; Landy Monte Technologist: RT THEODORE(R) Trnscrd Date/Time/By: 03/21/2019 (805) : By: [email or web address] Orig Print D/T: S: 03/21/2019 (850) PAGE 1 Signed Report CBC W/MANUAL [id number] 12:29:00* Test Item Value Reference Range Interpretation Comments WHITE BLOOD CELL (test code = WBC) 5.3 K/mm3 4.5-12.5 N RED BLOOD CELL (test code = RBC) 2.86 mill/mm3 3.7-5.2 L HEMOGLOBIN (test code = HGB) 8.2 gram/dL 11.5-15.5 L RESULT VERIFIED BY REPEAT ANALYSIS HEMATOCRIT (test code = HCT) 28.0 % 36.0-46.0 L MEAN CELL VOLUME (test code = MCV) 97.9 fL 80-98 N MEAN CELL HGB (test code = MCH) 28.7 picogram 27.0-33.0 N MEAN CELL HGB CONCETRATION (test code = MCHC) 29.3 gram/dL 33.0-36. 0 L RED CELL DISTRIBUTION WIDTH (test code = RDW) 19.2 % 11.6-16. 2 H RED CELL DISTRIBUTION WIDTH SD (test code = RDW-SD) 68.7 fL 37 .0-51.0 H PLATELET COUNT (test code = PLT) 120 K/mm3 150-450 L MEAN PLATELET VOLUME (test code = MPV) 12.4 fL 6.7-11.0 H IMMATURE GRANULOCYTE % (test code = IG%) 0.6 % 0.0-5.0 N NUCLEATED RBC % (test code = NRBC%) 0.0 % 0-0 N NEUTROPHIL # (test code = NT#) 4.82 K/mm3 1.8-7.7 N IMMATURE GRANULOCYTE # (test code = IG#) 0.03 x10 3/uL 0-0.03 N LYMPHOCYTE # (test code = LY#) 0.33 K/mm3 1.0-5.0 L MONOCYTE # (test code = MO#) 0.09 K/mm3 0-0.8 N EOSINOPHIL # (test code = EO#) 0.00 K/mm3 0.0-0.5 N BASOPHIL # (test code = BA#) 0.00 K/mm3 0.0-0.2 N NUCLEATED RBC # (test code = NRBC#) 0.00 K/mm3 0.0-0.1 N MANUAL DIFF REQUIRED (test code = MDIFF) YES STAIN ACCEPTABILITY (test code = STN ACCEPTABLE) STAIN ACCEPTABLE TOTAL CELLS COUNTED (test code = TCC) 115 #CELLS SEGMENTED NEUTROPHILS (test code = SEG) 93.0 % 39-69 H BAND NEUTROPHIL (test code = BAND) 3.5 % 0-10 N LYMPHOCYTE (test code = LYMPH) 3.5 % 25-55 L ANISOCYTOSIS (test code = ANISO) 2+ MACROCYTOSIS (test code = MACR) 2+ PLATELET ESTIMATE (test code = PLTEST) DECREASED PLATELET MORPHOLOGY (test code = PLTMORPH) NORMAL [facility] [id number] 11:58:00* Test Item Value Reference Range Interpretation Comments SODIUM (test code = NA) 150 mmol/L 136-145 H POTASSIUM (test code = K) 5.3 mmol/L 3.5-5.1 H CHLORIDE (test code = CL) 123.0 mmol/L 98-107 H CARBON DIOXIDE (test code = CO2) 17.0 mmol/L 21-32 L ANION GAP (test code = GAP) 15.3 10-20 N GLUCOSE (test code = GLU) 166 mg/dL 74-106 H BLOOD UREA NITROGEN (test code = BUN) 39 mg/dL 7-18 H RESULT VERIFIED BY REPEAT ANALYSIS GLOMERULAR FILTRATION RATE (test code = GFR) 26 mL/min >=60 Estimated GFR by using Modified MDRD formula.Chronic kidney disease is defined as either kidney damageor GFR <60 mL/min/1.73 m2 for >3 months. CREATININE (test code = CREAT) 2.00 mg/dL 0.55-1.02 H Note change in reference range due to change in reagent. BUN/CREATININE RATIO (test code = BUN/CREA) 19.5 10-20 N CALCIUM (test code = CA) 8.7 mg/dL 8.5-10.1 N NOTIFIEDV.LAB. 03/20/19 [id number] 11:58:00* Test Item Value Reference Range Interpretation Comments PHOSPHORUS (test code = PHOS) 5.2 mg/dL 2.5-4.9 H NOTIFIEDV.LAB. 03/20/19 [id number] 11:58:00* Test Item Value Reference Range Interpretation Comments MAGNESIUM (test code = MAG) 2.1 mg/dL 1.8-2.4 N NOTIFIEDV.LAB. 03/20/19 0626CBC W/MANUAL [id number] 11:47:00* Test Item Value Reference Range Interpretation Comments WHITE BLOOD CELL (test code = WBC) 5.3 K/mm3 4.5-12.5 N RED BLOOD CELL (test code = RBC) 2.86 mill/mm3 3.7-5.2 L HEMOGLOBIN (test code = HGB) 8.2 gram/dL 11.5-15.5 L RESULT VERIFIED BY REPEAT ANALYSIS HEMATOCRIT (test code = HCT) 28.0 % 36.0-46.0 L MEAN CELL VOLUME (test code = MCV) 97.9 fL 80-98 N MEAN CELL HGB (test code = MCH) 28.7 picogram 27.0-33.0 N MEAN CELL HGB CONCETRATION (test code = MCHC) 29.3 gram/dL 33.0-36. 0 L RED CELL DISTRIBUTION WIDTH (test code = RDW) 19.2 % 11.6-16. 2 H RED CELL DISTRIBUTION WIDTH SD (test code = RDW-SD) 68.7 fL 37 .0-51.0 H PLATELET COUNT (test code = PLT) 120 K/mm3 150-450 L MEAN PLATELET VOLUME (test code = MPV) 12.4 fL 6.7-11.0 H IMMATURE GRANULOCYTE % (test code = IG%) 0.6 % 0.0-5.0 N NUCLEATED RBC % (test code = NRBC%) 0.0 % 0-0 N NEUTROPHIL # (test code = NT#) 4.82 K/mm3 1.8-7.7 N IMMATURE GRANULOCYTE # (test code = IG#) 0.03 x10 3/uL 0-0.03 N LYMPHOCYTE # (test code = LY#) 0.33 K/mm3 1.0-5.0 L MONOCYTE # (test code = MO#) 0.09 K/mm3 0-0.8 N EOSINOPHIL # (test code = EO#) 0.00 K/mm3 0.0-0.5 N BASOPHIL # (test code = BA#) 0.00 K/mm3 0.0-0.2 N NUCLEATED RBC # (test code = NRBC#) 0.00 K/mm3 0.0-0.1 N MANUAL DIFF REQUIRED (test code = MDIFF) YES STAIN ACCEPTABILITY (test code = STN ACCEPTABLE) STAIN ACCEPTABLE TOTAL CELLS COUNTED (test code = TCC) 115 #CELLS SEGMENTED NEUTROPHILS (test code = SEG) 93.0 % 39-69 H BAND NEUTROPHIL (test code = BAND) 3.5 % 0-10 N LYMPHOCYTE (test code = LYMPH) 3.5 % 25-55 L MONOCYTE (test code = MON) % 0-10 ANISOCYTOSIS (test code = ANISO) 2+ MACROCYTOSIS (test code = MACR) 2+ PLATELET ESTIMATE (test code = PLTEST) DECREASED PLATELET MORPHOLOGY (test code = PLTMORPH) NORMAL 03/20/19 [id number] METABOLIC [id number] 11:43:00* Test Item Value Reference Range Interpretation Comments SODIUM (test code = NA) 150 mmol/L 136-145 H POTASSIUM (test code = K) 5.3 mmol/L 3.5-5.1 H CHLORIDE (test code = CL) 123.0 mmol/L 98-107 H CARBON DIOXIDE (test code = CO2) mmol/L 21-32 ANION GAP (test code = GAP) 10-20 GLUCOSE (test code = GLU) mg/dL 74-106 BLOOD UREA NITROGEN (test code = BUN) mg/dL 7-18 GLOMERULAR FILTRATION RATE (test code = GFR) mL/min >=60 CREATININE (test code = CREAT) mg/dL 0.55-1.02 BUN/CREATININE RATIO (test code = BUN/CREA) 10-20 CALCIUM (test code = CA) mg/dL 8.5-10.1 NOTIFIEDV.LAB. 03/20/19 [id number] 11:43:00* Test Item Value Reference Range Interpretation Comments PHOSPHORUS (test code = PHOS) mg/dL 2.5-4.9 NOTIFIEDV.LAB. 03/20/19 [id number] 11:43:00* Test Item Value Reference Range Interpretation Comments MAGNESIUM (test code = MAG) mg/dL 1.8-2.4 NOTIFIEDV.LAB. 03/20/19 0626CBC W/MANUAL [id number] 11:24:00* Test Item Value Reference Range Interpretation Comments WHITE BLOOD CELL (test code = WBC) 5.3 K/mm3 4.5-12.5 N RED BLOOD CELL (test code = RBC) 2.86 mill/mm3 3.7-5.2 L HEMOGLOBIN (test code = HGB) 8.2 gram/dL 11.5-15.5 L RESULT VERIFIED BY REPEAT ANALYSIS HEMATOCRIT (test code = HCT) 28.0 % 36.0-46.0 L MEAN CELL VOLUME (test code = MCV) 97.9 fL 80-98 N MEAN CELL HGB (test code = MCH) 28.7 picogram 27.0-33.0 N MEAN CELL HGB CONCETRATION (test code = MCHC) 29.3 gram/dL 33.0-36. 0 L RED CELL DISTRIBUTION WIDTH (test code = RDW) 19.2 % 11.6-16. 2 H RED CELL DISTRIBUTION WIDTH SD (test code = RDW-SD) 68.7 fL 37 .0-51.0 H PLATELET COUNT (test code = PLT) 120 K/mm3 150-450 L MEAN PLATELET VOLUME (test code = MPV) 12.4 fL 6.7-11.0 H IMMATURE GRANULOCYTE % (test code = IG%) 0.6 % 0.0-5.0 N NUCLEATED RBC % (test code = NRBC%) 0.0 % 0-0 N NEUTROPHIL # (test code = NT#) 4.82 K/mm3 1.8-7.7 N IMMATURE GRANULOCYTE # (test code = IG#) 0.03 x10 3/uL 0-0.03 N LYMPHOCYTE # (test code = LY#) 0.33 K/mm3 1.0-5.0 L MONOCYTE # (test code = MO#) 0.09 K/mm3 0-0.8 N EOSINOPHIL # (test code = EO#) 0.00 K/mm3 0.0-0.5 N BASOPHIL # (test code = BA#) 0.00 K/mm3 0.0-0.2 N NUCLEATED RBC # (test code = NRBC#) 0.00 K/mm3 0.0-0.1 N MANUAL DIFF REQUIRED (test code = MDIFF) YES STAIN ACCEPTABILITY (test code = STN ACCEPTABLE) TOTAL CELLS COUNTED (test code = TCC) #CELLS SEGMENTED NEUTROPHILS (test code = SEG) % 39-69 LYMPHOCYTE (test code = LYMPH) % 25-55 MONOCYTE (test code = MON) % 0-10 EOSINOPHIL (test code = EOS) % 0.0-5.0 CABOT RINGS (test code = CAB) MORPHOLOGY COMMENT (test code = MOC) PLATELET ESTIMATE (test code = PLTEST) PLATELET MORPHOLOGY (test code = PLTMORPH) 03/20/19 [id number] W/MANUAL [id number] 11:24:00* Test Item Value Reference Range Interpretation Comments WHITE BLOOD CELL (test code = WBC) 5.3 K/mm3 4.5-12.5 N RED BLOOD CELL (test code = RBC) 2.86 mill/mm3 3.7-5.2 L HEMOGLOBIN (test code = HGB) 8.2 gram/dL 11.5-15.5 L RESULT VERIFIED BY REPEAT ANALYSIS HEMATOCRIT (test code = HCT) 28.0 % 36.0-46.0 L MEAN CELL VOLUME (test code = MCV) 97.9 fL 80-98 N MEAN CELL HGB (test code = MCH) 28.7 picogram 27.0-33.0 N MEAN CELL HGB CONCETRATION (test code = MCHC) 29.3 gram/dL 33.0-36. 0 L RED CELL DISTRIBUTION WIDTH (test code = RDW) 19.2 % 11.6-16. 2 H RED CELL DISTRIBUTION WIDTH SD (test code = RDW-SD) 68.7 fL 37 .0-51.0 H PLATELET COUNT (test code = PLT) 120 K/mm3 150-450 L MEAN PLATELET VOLUME (test code = MPV) 12.4 fL 6.7-11.0 H IMMATURE GRANULOCYTE % (test code = IG%) 0.6 % 0.0-5.0 N NUCLEATED RBC % (test code = NRBC%) 0.0 % 0-0 N NEUTROPHIL # (test code = NT#) 4.82 K/mm3 1.8-7.7 N IMMATURE GRANULOCYTE # (test code = IG#) 0.03 x10 3/uL 0-0.03 N LYMPHOCYTE # (test code = LY#) 0.33 K/mm3 1.0-5.0 L MONOCYTE # (test code = MO#) 0.09 K/mm3 0-0.8 N EOSINOPHIL # (test code = EO#) 0.00 K/mm3 0.0-0.5 N BASOPHIL # (test code = BA#) 0.00 K/mm3 0.0-0.2 N NUCLEATED RBC # (test code = NRBC#) 0.00 K/mm3 0.0-0.1 N MANUAL DIFF REQUIRED (test code = MDIFF) YES STAIN ACCEPTABILITY (test code = STN ACCEPTABLE) TOTAL CELLS COUNTED (test code = TCC) #CELLS SEGMENTED NEUTROPHILS (test code = SEG) % 39-69 LYMPHOCYTE (test code = LYMPH) % 25-55 MONOCYTE (test code = MON) % 0-10 EOSINOPHIL (test code = EOS) % 0.0-5.0 MORPHOLOGY COMMENT (test code = MOC) PLATELET ESTIMATE (test code = PLTEST) PLATELET MORPHOLOGY (test code = PLTMORPH) 03/20/19 0627CB W/MANUAL [id number] 11:24:00* Test Item Value Reference Range Interpretation Comments WHITE BLOOD CELL (test code = WBC) 5.3 K/mm3 4.5-12.5 N RED BLOOD CELL (test code = RBC) 2.86 mill/mm3 3.7-5.2 L HEMOGLOBIN (test code = HGB) 8.2 gram/dL 11.5-15.5 L RESULT VERIFIED BY REPEAT ANALYSIS HEMATOCRIT (test code = HCT) 28.0 % 36.0-46.0 L MEAN CELL VOLUME (test code = MCV) 97.9 fL 80-98 N MEAN CELL HGB (test code = MCH) 28.7 picogram 27.0-33.0 N MEAN CELL HGB CONCETRATION (test code = MCHC) 29.3 gram/dL 33.0-36. 0 L RED CELL DISTRIBUTION WIDTH (test code = RDW) 19.2 % 11.6-16. 2 H RED CELL DISTRIBUTION WIDTH SD (test code = RDW-SD) 68.7 fL 37 .0-51.0 H PLATELET COUNT (test code = PLT) 120 K/mm3 150-450 L MEAN PLATELET VOLUME (test code = MPV) 12.4 fL 6.7-11.0 H IMMATURE GRANULOCYTE % (test code = IG%) 0.6 % 0.0-5.0 N NUCLEATED RBC % (test code = NRBC%) 0.0 % 0-0 N NEUTROPHIL # (test code = NT#) 4.82 K/mm3 1.8-7.7 N IMMATURE GRANULOCYTE # (test code = IG#) 0.03 x10 3/uL 0-0.03 N LYMPHOCYTE # (test code = LY#) 0.33 K/mm3 1.0-5.0 L MONOCYTE # (test code = MO#) 0.09 K/mm3 0-0.8 N EOSINOPHIL # (test code = EO#) 0.00 K/mm3 0.0-0.5 N BASOPHIL # (test code = BA#) 0.00 K/mm3 0.0-0.2 N NUCLEATED RBC # (test code = NRBC#) 0.00 K/mm3 0.0-0.1 N MANUAL DIFF REQUIRED (test code = MDIFF) YES STAIN ACCEPTABILITY (test code = STN ACCEPTABLE) TOTAL CELLS COUNTED (test code = TCC) #CELLS SEGMENTED NEUTROPHILS (test code = SEG) % 39-69 LYMPHOCYTE (test code = LYMPH) % 25-55 MONOCYTE (test code = MON) % 0-10 MORPHOLOGY COMMENT (test code = MOC) PLATELET ESTIMATE (test code = PLTEST) PLATELET MORPHOLOGY (test code = PLTMORPH) 03/20/19 0627CBC W/MANUAL [id number] 11:23:00* Test Item Value Reference Range Interpretation Comments WHITE BLOOD CELL (test code = WBC) 5.3 K/mm3 4.5-12.5 N RED BLOOD CELL (test code = RBC) 2.86 mill/mm3 3.7-5.2 L HEMOGLOBIN (test code = HGB) 8.2 gram/dL 11.5-15.5 L RESULT VERIFIED BY REPEAT ANALYSIS HEMATOCRIT (test code = HCT) 28.0 % 36.0-46.0 L MEAN CELL VOLUME (test code = MCV) 97.9 fL 80-98 N MEAN CELL HGB (test code = MCH) 28.7 picogram 27.0-33.0 N MEAN CELL HGB CONCETRATION (test code = MCHC) 29.3 gram/dL 33.0-36. 0 L RED CELL DISTRIBUTION WIDTH (test code = RDW) 19.2 % 11.6-16. 2 H RED CELL DISTRIBUTION WIDTH SD (test code = RDW-SD) 68.7 fL 37 .0-51.0 H PLATELET COUNT (test code = PLT) 120 K/mm3 150-450 L MEAN PLATELET VOLUME (test code = MPV) 12.4 fL 6.7-11.0 H IMMATURE GRANULOCYTE % (test code = IG%) 0.6 % 0.0-5.0 N NUCLEATED RBC % (test code = NRBC%) 0.0 % 0-0 N NEUTROPHIL # (test code = NT#) 4.82 K/mm3 1.8-7.7 N IMMATURE GRANULOCYTE # (test code = IG#) 0.03 x10 3/uL 0-0.03 N LYMPHOCYTE # (test code = LY#) 0.33 K/mm3 1.0-5.0 L MONOCYTE # (test code = MO#) 0.09 K/mm3 0-0.8 N EOSINOPHIL # (test code = EO#) 0.00 K/mm3 0.0-0.5 N BASOPHIL # (test code = BA#) 0.00 K/mm3 0.0-0.2 N NUCLEATED RBC # (test code = NRBC#) 0.00 K/mm3 0.0-0.1 N MANUAL DIFF REQUIRED (test code = MDIFF) YES STAIN ACCEPTABILITY (test code = STN ACCEPTABLE) TOTAL CELLS COUNTED (test code = TCC) #CELLS SEGMENTED NEUTROPHILS (test code = SEG) % 39-69 LYMPHOCYTE (test code = LYMPH) % 25-55 MONOCYTE (test code = MON) % 0-10 EOSINOPHIL (test code = EOS) % 0.0-5.0 CABOT RINGS (test code = CAB) MORPHOLOGY COMMENT (test code = MOC) PLATELET ESTIMATE (test code = PLTEST) PLATELET MORPHOLOGY (test code = PLTMORPH) 03/20/19 0627CBC W/MANUAL [id number] 11:23:00* Test Item Value Reference Range Interpretation Comments WHITE BLOOD CELL (test code = WBC) 5.3 K/mm3 4.5-12.5 N RED BLOOD CELL (test code = RBC) 2.86 mill/mm3 3.7-5.2 L HEMOGLOBIN (test code = HGB) 8.2 gram/dL 11.5-15.5 L RESULT VERIFIED BY REPEAT ANALYSIS HEMATOCRIT (test code = HCT) 28.0 % 36.0-46.0 L MEAN CELL VOLUME (test code = MCV) 97.9 fL 80-98 N MEAN CELL HGB (test code = MCH) 28.7 picogram 27.0-33.0 N MEAN CELL HGB CONCETRATION (test code = MCHC) 29.3 gram/dL 33.0-36. 0 L RED CELL DISTRIBUTION WIDTH (test code = RDW) 19.2 % 11.6-16. 2 H RED CELL DISTRIBUTION WIDTH SD (test code = RDW-SD) 68.7 fL 37 .0-51.0 H PLATELET COUNT (test code = PLT) 120 K/mm3 150-450 L MEAN PLATELET VOLUME (test code = MPV) 12.4 fL 6.7-11.0 H IMMATURE GRANULOCYTE % (test code = IG%) 0.6 % 0.0-5.0 N NUCLEATED RBC % (test code = NRBC%) 0.0 % 0-0 N NEUTROPHIL # (test code = NT#) 4.82 K/mm3 1.8-7.7 N IMMATURE GRANULOCYTE # (test code = IG#) 0.03 x10 3/uL 0-0.03 N LYMPHOCYTE # (test code = LY#) 0.33 K/mm3 1.0-5.0 L MONOCYTE # (test code = MO#) 0.09 K/mm3 0-0.8 N EOSINOPHIL # (test code = EO#) 0.00 K/mm3 0.0-0.5 N BASOPHIL # (test code = BA#) 0.00 K/mm3 0.0-0.2 N NUCLEATED RBC # (test code = NRBC#) 0.00 K/mm3 0.0-0.1 N MANUAL DIFF REQUIRED (test code = MDIFF) YES STAIN ACCEPTABILITY (test code = STN ACCEPTABLE) TOTAL CELLS COUNTED (test code = TCC) #CELLS SEGMENTED NEUTROPHILS (test code = SEG) % 39-69 LYMPHOCYTE (test code = LYMPH) % 25-55 MONOCYTE (test code = MON) % 0-10 EOSINOPHIL (test code = EOS) % 0.0-5.0 CABOT RINGS (test code = CAB) MORPHOLOGY COMMENT (test code = MOC) PLATELET ESTIMATE (test code = PLTEST) PLATELET MORPHOLOGY (test code = PLTMORPH) 03/20/19 0627- XR CHEST 1 [id number] 08:18:00 FAX: Shirin Luong MD [place]: B St: ADM FAX: Landy Altamirano [phone] Name: SIOBHAN BARBOSA [facility] : 1965 Age/S: 54/F [address] [facility] Unit #: [id number] Loc: V.20[address] [place] [address] Phys: Landy Monte Acct: [id number] Dis Date: Status: ADM IN PHONE #: [phone] Exam Date: 03/20/2019 0748 FAX #: [phone] Reason: COPD exacerbation EXAMS: CPT CODE: [id number] XR CHEST 1 V 34574 REASON FOR EXAM: COPD exacerbation EXAM OR JEANETTE DATE: 03/20/2019 5:00 AM Ordering Michelet: NISHANT Gu PROCEDURE: - XR CHEST 1 [...] signed b y: Jewel Reyez M.D. CC: Shirin Knott; Landy Monte Technologist: Lisa Linares RT(R); ... Trnscrd Date/Time/By: 03/20/2019 (0818) : By: [email or web address] Orig Daysi nt D/T: S: 03/20/2019 (0021) PAGE 1 Signed Report [id number] 22:02:00* Test Item Value Reference Range Interpretation Comments TROPONIN-I (test code = TROPI) 0.028 ng/mL 0-0.045 N REFUSED NOTIFIED SABINE GRIMALDO([id number])V.LAB.LC1 [id number] TO PHLEBOTOMI ST: COLLECT 3 HOURS AFTER PREVIOUS SAMPLEBASIC METABOLIC [id number] 21:59:00* Test Item Value Reference Range Interpretation Comments SODIUM (test code = NA) 150 mmol/L 136-145 H POTASSIUM (test code = K) 5.3 mmol/L 3.5-5.1 H CHLORIDE (test code = CL) 123.0 mmol/L 98-107 H CARBON DIOXIDE (test code = CO2) 16.0 mmol/L 21-32 L ANION GAP (test code = GAP) 16.3 10-20 N GLUCOSE (test code = GLU) 158 mg/dL 74-106 H BLOOD UREA NITROGEN (test code = BUN) 31 mg/dL 7-18 H GLOMERULAR FILTRATION RATE (test code = GFR) 26 mL/min >=60 Estimated GFR by using Modified MDRD formula.Chronic kidney disease is defined as either kidney damageor GFR <60 mL/min/1.73 m2 for >3 months. CREATININE (test code = CREAT) 2.00 mg/dL 0.55-1.02 H Note change in reference range due to change in reagent. BUN/CREATININE RATIO (test code = BUN/CREA) 15.5 10-20 N CALCIUM (test code = CA) 9.0 mg/dL 8.5-10.1 N [id number] 14:26:00* Test Item Value Reference Range Interpretation Comments TROPONIN-I (test code = TROPI) 0.041 ng/mL 0-0.045 N COMMENTS TO CYTOGENETIC TECHNOLOGIST: COLLECT 3 HOURS AFTER PREVIOUS SAMPLELACTIC [id number] 12:03:00* Test Item Value Reference Range Interpretation Comments LACTIC ACID (test code = LACT) 1.5 mmol/L 0.4-1.9 N URINALYSIS [id number] 10:19:00* Test Item Value Reference Range Interpretation Comments UA COLOR (test code = COLU) ENRIKE YELLOW A UA APPEARANCE (test code = APPU) CLOUDY CLEAR A UA GLUCOSE DIPSTICK (test code = DGLUU) NEGATIVE mg/dL NEGATIVE UA BILIRUBIN DIPSTICK (test code = BILU) 2+ (Mod 2.0-4.0) NEGATIVE UA KETONE DIPSTICK (test code = KETU) NEGATIVE mg/dL NEGATIVE UA SPECIFIC GRAVITY (test code = SGU) 1.025 1.001-1.035 UA BLOOD DIPSTICK (test code = JONO) 3+ (Large) NEGATIVE A UA PH DIPSTICK (test code = AHMET) 5.0 5.0-8.0 UA PROTEIN DIPSTICK (test code = PROU) >=300 (3+) mg/dL Neg-15 UA UROBILINIOGEN DIPSTICK (test code = URO) 1 mg/dL (1+) mg/dL 0.0 -0.2 UA NITRITE DIPSTICK (test code = IFEOMA) POSITIVE NEGATIVE UA LEUKOCYTE ESTERASE W REFLEX (test code = LEUUR) 2+ NEG ATIVE A UA WBC (test code = WBCU) 151-200 per HPF 0-5 A UA RBC (test code = RBCU) >100 per HPF 0-5 UA EPITHELIAL CELLS (test code = EPIU) MODERATE per HPF Few UA BACTERIA (test code = BACU) MODERATE per HPF NONE A UA YEAST (test code = YEASTU) RARE per HPF NONE A HYPHAEL AND BUDDING FORMS Urine Source? Clean CatchCBC W/MANUAL [id number] 09:41:00* Test Item Value Reference Range Interpretation Comments WHITE BLOOD CELL (test code = WBC) 10.9 K/mm3 4.5-12.5 N RED BLOOD CELL (test code = RBC) 3.74 mill/mm3 3.7-5.2 N HEMOGLOBIN (test code = HGB) 10.5 gram/dL 11.5-15.5 L HEMATOCRIT (test code = HCT) 35.3 % 36.0-46.0 L MEAN CELL VOLUME (test code = MCV) 94.4 fL 80-98 N MEAN CELL HGB (test code = MCH) 28.1 picogram 27.0-33.0 N MEAN CELL HGB CONCETRATION (test code = MCHC) 29.7 gram/dL 33.0-36. 0 L RED CELL DISTRIBUTION WIDTH (test code = RDW) 19.0 % 11.6-16. 2 H RED CELL DISTRIBUTION WIDTH SD (test code = RDW-SD) 65.7 fL 37 .0-51.0 H PLATELET COUNT (test code = PLT) 165 K/mm3 150-450 N MEAN PLATELET VOLUME (test code = MPV) 12.3 fL 6.7-11.0 H IMMATURE GRANULOCYTE % (test code = IG%) 0.5 % 0.0-5.0 N NUCLEATED RBC % (test code = NRBC%) 0.0 % 0-0 N NEUTROPHIL # (test code = NT#) 7.93 K/mm3 1.8-7.7 H IMMATURE GRANULOCYTE # (test code = IG#) 0.05 x10 3/uL 0-0.03 H LYMPHOCYTE # (test code = LY#) 2.07 K/mm3 1.0-5.0 N MONOCYTE # (test code = MO#) 0.47 K/mm3 0-0.8 N EOSINOPHIL # (test code = EO#) 0.27 K/mm3 0.0-0.5 N BASOPHIL # (test code = BA#) 0.07 K/mm3 0.0-0.2 N NUCLEATED RBC # (test code = NRBC#) 0.00 K/mm3 0.0-0.1 N MANUAL DIFF REQUIRED (test code = MDIFF) YES STAIN ACCEPTABILITY (test code = STN ACCEPTABLE) STAIN ACCEPTABLE TOTAL CELLS COUNTED (test code = TCC) 115 #CELLS SEGMENTED NEUTROPHILS (test code = SEG) 61.7 % 39-69 N BAND NEUTROPHIL (test code = BAND) 12.2 % 0-10 H LYMPHOCYTE (test code = LYMPH) 13.9 % 25-55 L REACTIVE LYMPH (test code = RELYMPH) 1.7 % MONOCYTE (test code = MON) 6.1 % 0-10 N EOSINOPHIL (test code = EOS) 4.4 % 0.0-5.0 N BASOPHIL (test code = BASO) 0 % 0-1.0 N METAMYELOCYTE (test code = META) 0 % 0-0 N MYELOCYTE (test code = MYELO) 0 % 0.0-0.0 N PROMYELOCYTE (test code = PROM) 0 % 0-0 N HYPOCHROMIA (test code = HYPO) 1+ POIKILOCYTOSIS (test code = POIK) 1+ ANISOCYTOSIS (test code = ANISO) 1+ SPHEROCYTES (test code = SPH) RARE CRENATED CELLS (test code = CREN) 1+ PLATELET ESTIMATE (test code = PLTEST) ADEQUATE PLATELET MORPHOLOGY (test code = PLTMORPH) CLUMPING PRESENT IMMATURE FORMS (test code = IMMAT) 0 % 0-0 N URINALYSIS [id number] 09:16:00* Test Item Value Reference Range Interpretation Comments UA COLOR (test code = COLU) ENRIKE YELLOW A UA APPEARANCE (test code = APPU) CLOUDY CLEAR A UA GLUCOSE DIPSTICK (test code = DGLUU) NEGATIVE mg/dL NEGATIVE UA BILIRUBIN DIPSTICK (test code = BILU) 2+ (Mod 2.0-4.0) NEGATIVE UA KETONE DIPSTICK (test code = KETU) NEGATIVE mg/dL NEGATIVE UA SPECIFIC GRAVITY (test code = SGU) 1.025 1.001-1.035 UA BLOOD DIPSTICK (test code = JONO) 3+ (Large) NEGATIVE A UA PH DIPSTICK (test code = AHMET) 5.0 5.0-8.0 UA PROTEIN DIPSTICK (test code = PROU) >=300 (3+) mg/dL Neg-15 UA UROBILINIOGEN DIPSTICK (test code = URO) 1 mg/dL (1+) mg/dL 0.0 -0.2 UA NITRITE DIPSTICK (test code = IFEOMA) POSITIVE NEGATIVE UA LEUKOCYTE ESTERASE W REFLEX (test code = LEUUR) 2+ NEG ATIVE A UA WBC (test code = WBCU) 151-200 per HPF 0-5 A UA RBC (test code = RBCU) >100 per HPF 0-5 UA EPITHELIAL CELLS (test code = EPIU) MODERATE per HPF Few UA BACTERIA (test code = BACU) per HPF NONE Urine Source? Clean CatchPROCALCITONIN (PCT)2019-03-19 08:45:00* Test Item Value Reference Range Interpretation Comments PROCALCITONIN (PCT) (test code = PROCAL) 0.24 ng/ml Concentration Interpretation (ng/mL) <0.51 Sepsis [...] taking into account the patients history. URINALYSIS [id number] 08:44:00* Test Item Value Reference Range Interpretation Comments UA COLOR (test code = COLU) ENRIKE YELLOW A UA APPEARANCE (test code = APPU) CLOUDY CLEAR A UA GLUCOSE DIPSTICK (test code = DGLUU) NEGATIVE mg/dL NEGATIVE UA BILIRUBIN DIPSTICK (test code = BILU) 2+ (Mod 2.0-4.0) NEGATIVE UA KETONE DIPSTICK (test code = KETU) NEGATIVE mg/dL NEGATIVE UA SPECIFIC GRAVITY (test code = SGU) 1.025 1.001-1.035 UA BLOOD DIPSTICK (test code = JONO) 3+ (Large) NEGATIVE A UA PH DIPSTICK (test code = AHMET) 5.0 5.0-8.0 UA PROTEIN DIPSTICK (test code = PROU) >=300 (3+) mg/dL Neg-15 UA UROBILINIOGEN DIPSTICK (test code = URO) 1 mg/dL (1+) mg/dL 0.0 -0.2 UA NITRITE DIPSTICK (test code = IFEOMA) POSITIVE NEGATIVE UA LEUKOCYTE ESTERASE W REFLEX (test code = LEUUR) 2+ NEG ATIVE A UA WBC (test code = WBCU) per HPF 0-5 UA RBC (test code = RBCU) per HPF 0-5 UA EPITHELIAL CELLS (test code = EPIU) per HPF Few UA BACTERIA (test code = BACU) per HPF NONE Urine Source? Clean CatchPROTHROMBIN [id number] 08:11:00* Test Item Value Reference Range Interpretation Comments PROTHROMBIN TIME PATIENT (test code = PTP) 12.3 seconds 9.0-14.0 N INTERNATIONAL NORMAL RATIO (test code = INR) 1.1 0.8-1.2 N The therapeutic range for oral anticoagulant therapy [...] (2.5-3.5) IS PATIENT ON ANTICOAGULANTS? NTHROMBOPLASTIN TIME [id number] 08:11:00* Test Item Value Reference Range Interpretation Comments THROMBOPLASTIN TIME PARTIAL (test code = PTT) 39.3 seconds 25.0-36. 5 H IS PATIENT ON ANTICOAGULANTS? NLACTIC [id number] 08:08:00* Test Item Value Reference Range Interpretation Comments LACTIC ACID (test code = LACT) 2.3 mmol/L 0.4-1.9 Results called to [id number] by MYAH 03/19/19 0808Critical results verified and read back by Nurse? Y BASIC METABOLIC [id number] 08:07:00* Test Item Value Reference Range Interpretation Comments SODIUM (test code = NA) 146 mmol/L 136-145 H POTASSIUM (test code = K) 5.9 mmol/L 3.5-5.1 H CHLORIDE (test code = CL) 118.0 mmol/L 98-107 H CARBON DIOXIDE (test code = CO2) 17.0 mmol/L 21-32 L ANION GAP (test code = GAP) 16.9 10-20 N GLUCOSE (test code = GLU) 144 mg/dL 74-106 H BLOOD UREA NITROGEN (test code = BUN) 30 mg/dL 7-18 H GLOMERULAR FILTRATION RATE (test code = GFR) 26 mL/min >=60 Estimated GFR by using Modified MDRD formula.Chronic kidney disease is defined as either kidney damageor GFR <60 mL/min/1.73 m2 for >3 months. CREATININE (test code = CREAT) 2.00 mg/dL 0.55-1.02 H Note change in reference range due to change in reagent. BUN/CREATININE RATIO (test code = BUN/CREA) 15.0 10-20 N CALCIUM (test code = CA) 8.8 mg/dL 8.5-10.1 N HEPATIC FUNCTION [id number] 08:07:00* Test Item Value Reference Range Interpretation Comments TOTAL PROTEIN (test code = PROT) 8.2 gram/dL 6.4-8.2 N ALBUMIN (test code = ALB) 2.3 g/dL 3.4-5.0 L GLOBULIN (test code = GLOB) 5.9 gram/dL 2.7-4.2 H ALBUMIN/GLOBULIN RATIO (test code = A/G) 0.4 0.75-1.50 L BILIRUBIN TOTAL (test code = BILT) 1.30 mg/dL 0.0-1.0 H BILIRUBIN DIRECT (test code = BILD) 0.59 mg/dL 0.0-0.20 H SGOT/AST (test code = AST) 82 IUnit/L 15-37 H SGPT/ALT (test code = ALT) 50 IUnit/L 12-78 N ALKALINE PHOSPHATASE TOTAL (test code = ALKP) 828 IUnit/L 45-117 H Note change in reference range due to change in reagent. [id number] 08:07:00* Test Item Value Reference Range Interpretation Comments TROPONIN-I (test code = TROPI) <0.015 ng/mL 0-0.045 N - XR CHEST 1 [id number] 07:48:00 FAX: Alec Mcdowell MD [phone] [place]: St: REG Name: SIOBHAN ROBERTS [facility] : [birth year] Age/S: 54/F [address] [facility] Unit #: [id number] Loc: [place] [address] Phys: Alec Mcdowell MD Acct: [id number] Dis Date: Status: REG ER PHONE #: [phone] Exam Date: 03/19/2019 0733 FAX #: [phone] Reason: CODE SEPSIS EXAMS: CPT CODE: [id number] XR CHEST 1 V 18868 HISTORY: Respiratory distress, COD E SEPSIS TECHNIQUE: AP chest x-ray COMPARISON: 9 FINDINGS: Left upper lobe consolidation, suspect p [...] By: [email or web address] Orig Print D/T: S: 03/19/2019 (0754) PAGE 1 Signed Report POC LACTIC [id number] 07:39:00* Test Item Value Reference Range Interpretation Comments POC LACTIC ACID (test code = POCLAC) 2.53 MMOL/L 0.4-2.2 H CBC W/MANUAL [id number] 07:38:00* Test Item Value Reference Range Interpretation Comments WHITE BLOOD CELL (test code = WBC) 10.9 K/mm3 4.5-12.5 N RED BLOOD CELL (test code = RBC) 3.74 mill/mm3 3.7-5.2 N HEMOGLOBIN (test code = HGB) 10.5 gram/dL 11.5-15.5 L HEMATOCRIT (test code = HCT) 35.3 % 36.0-46.0 L MEAN CELL VOLUME (test code = MCV) 94.4 fL 80-98 N MEAN CELL HGB (test code = MCH) 28.1 picogram 27.0-33.0 N MEAN CELL HGB CONCETRATION (test code = MCHC) 29.7 gram/dL 33.0-36. 0 L RED CELL DISTRIBUTION WIDTH (test code = RDW) 19.0 % 11.6-16. 2 H RED CELL DISTRIBUTION WIDTH SD (test code = RDW-SD) 65.7 fL 37 .0-51.0 H PLATELET COUNT (test code = PLT) 165 K/mm3 150-450 N MEAN PLATELET VOLUME (test code = MPV) 12.3 fL 6.7-11.0 H IMMATURE GRANULOCYTE % (test code = IG%) 0.5 % 0.0-5.0 N NUCLEATED RBC % (test code = NRBC%) 0.0 % 0-0 N NEUTROPHIL # (test code = NT#) 7.93 K/mm3 1.8-7.7 H IMMATURE GRANULOCYTE # (test code = IG#) 0.05 x10 3/uL 0-0.03 H LYMPHOCYTE # (test code = LY#) 2.07 K/mm3 1.0-5.0 N MONOCYTE # (test code = MO#) 0.47 K/mm3 0-0.8 N EOSINOPHIL # (test code = EO#) 0.27 K/mm3 0.0-0.5 N BASOPHIL # (test code = BA#) 0.07 K/mm3 0.0-0.2 N NUCLEATED RBC # (test code = NRBC#) 0.00 K/mm3 0.0-0.1 N MANUAL DIFF REQUIRED (test code = MDIFF) YES STAIN ACCEPTABILITY (test code = STN ACCEPTABLE) TOTAL CELLS COUNTED (test code = TCC) #CELLS SEGMENTED NEUTROPHILS (test code = SEG) % 39-69 LYMPHOCYTE (test code = LYMPH) % 25-55 MONOCYTE (test code = MON) % 0-10 EOSINOPHIL (test code = EOS) % 0.0-5.0 CABOT RINGS (test code = CAB) MORPHOLOGY COMMENT (test code = MOC) PLATELET ESTIMATE (test code = PLTEST) PLATELET MORPHOLOGY (test code = PLTMORPH) CBC W/MANUAL [id number] 07:38:00* Test Item Value Reference Range Interpretation Comments WHITE BLOOD CELL (test code = WBC) 10.9 K/mm3 4.5-12.5 N RED BLOOD CELL (test code = RBC) 3.74 mill/mm3 3.7-5.2 N HEMOGLOBIN (test code = HGB) 10.5 gram/dL 11.5-15.5 L HEMATOCRIT (test code = HCT) 35.3 % 36.0-46.0 L MEAN CELL VOLUME (test code = MCV) 94.4 fL 80-98 N MEAN CELL HGB (test code = MCH) 28.1 picogram 27.0-33.0 N MEAN CELL HGB CONCETRATION (test code = MCHC) 29.7 gram/dL 33.0-36. 0 L RED CELL DISTRIBUTION WIDTH (test code = RDW) 19.0 % 11.6-16. 2 H RED CELL DISTRIBUTION WIDTH SD (test code = RDW-SD) 65.7 fL 37 .0-51.0 H PLATELET COUNT (test code = PLT) 165 K/mm3 150-450 N MEAN PLATELET VOLUME (test code = MPV) 12.3 fL 6.7-11.0 H IMMATURE GRANULOCYTE % (test code = IG%) 0.5 % 0.0-5.0 N NUCLEATED RBC % (test code = NRBC%) 0.0 % 0-0 N NEUTROPHIL # (test code = NT#) 7.93 K/mm3 1.8-7.7 H IMMATURE GRANULOCYTE # (test code = IG#) 0.05 x10 3/uL 0-0.03 H LYMPHOCYTE # (test code = LY#) 2.07 K/mm3 1.0-5.0 N MONOCYTE # (test code = MO#) 0.47 K/mm3 0-0.8 N EOSINOPHIL # (test code = EO#) 0.27 K/mm3 0.0-0.5 N BASOPHIL # (test code = BA#) 0.07 K/mm3 0.0-0.2 N NUCLEATED RBC # (test code = NRBC#) 0.00 K/mm3 0.0-0.1 N MANUAL DIFF REQUIRED (test code = MDIFF) YES STAIN ACCEPTABILITY (test code = STN ACCEPTABLE) TOTAL CELLS COUNTED (test code = TCC) #CELLS SEGMENTED NEUTROPHILS (test code = SEG) % 39-69 LYMPHOCYTE (test code = LYMPH) % 25-55 MONOCYTE (test code = MON) % 0-10 EOSINOPHIL (test code = EOS) % 0.0-5.0 CABOT RINGS (test code = CAB) MORPHOLOGY COMMENT (test code = MOC) PLATELET ESTIMATE (test code = PLTEST) PLATELET MORPHOLOGY (test code = PLTMORPH) CBC W/MANUAL [id number] 07:38:00* Test Item Value Reference Range Interpretation Comments WHITE BLOOD CELL (test code = WBC) 10.9 K/mm3 4.5-12.5 N RED BLOOD CELL (test code = RBC) 3.74 mill/mm3 3.7-5.2 N HEMOGLOBIN (test code = HGB) 10.5 gram/dL 11.5-15.5 L HEMATOCRIT (test code = HCT) 35.3 % 36.0-46.0 L MEAN CELL VOLUME (test code = MCV) 94.4 fL 80-98 N MEAN CELL HGB (test code = MCH) 28.1 picogram 27.0-33.0 N MEAN CELL HGB CONCETRATION (test code = MCHC) 29.7 gram/dL 33.0-36. 0 L RED CELL DISTRIBUTION WIDTH (test code = RDW) 19.0 % 11.6-16. 2 H RED CELL DISTRIBUTION WIDTH SD (test code = RDW-SD) 65.7 fL 37 .0-51.0 H PLATELET COUNT (test code = PLT) 165 K/mm3 150-450 N MEAN PLATELET VOLUME (test code = MPV) 12.3 fL 6.7-11.0 H IMMATURE GRANULOCYTE % (test code = IG%) 0.5 % 0.0-5.0 N NUCLEATED RBC % (test code = NRBC%) 0.0 % 0-0 N NEUTROPHIL # (test code = NT#) 7.93 K/mm3 1.8-7.7 H IMMATURE GRANULOCYTE # (test code = IG#) 0.05 x10 3/uL 0-0.03 H LYMPHOCYTE # (test code = LY#) 2.07 K/mm3 1.0-5.0 N MONOCYTE # (test code = MO#) 0.47 K/mm3 0-0.8 N EOSINOPHIL # (test code = EO#) 0.27 K/mm3 0.0-0.5 N BASOPHIL # (test code = BA#) 0.07 K/mm3 0.0-0.2 N NUCLEATED RBC # (test code = NRBC#) 0.00 K/mm3 0.0-0.1 N MANUAL DIFF REQUIRED (test code = MDIFF) YES STAIN ACCEPTABILITY (test code = STN ACCEPTABLE) TOTAL CELLS COUNTED (test code = TCC) #CELLS SEGMENTED NEUTROPHILS (test code = SEG) % 39-69 LYMPHOCYTE (test code = LYMPH) % 25-55 MONOCYTE (test code = MON) % 0-10 EOSINOPHIL (test code = EOS) % 0.0-5.0 MORPHOLOGY COMMENT (test code = MOC) PLATELET ESTIMATE (test code = PLTEST) PLATELET MORPHOLOGY (test code = PLTMORPH) CBC W/MANUAL [id number] 07:38:00* Test Item Value Reference Range Interpretation Comments WHITE BLOOD CELL (test code = WBC) 10.9 K/mm3 4.5-12.5 N RED BLOOD CELL (test code = RBC) 3.74 mill/mm3 3.7-5.2 N HEMOGLOBIN (test code = HGB) 10.5 gram/dL 11.5-15.5 L HEMATOCRIT (test code = HCT) 35.3 % 36.0-46.0 L MEAN CELL VOLUME (test code = MCV) 94.4 fL 80-98 N MEAN CELL HGB (test code = MCH) 28.1 picogram 27.0-33.0 N MEAN CELL HGB CONCETRATION (test code = MCHC) 29.7 gram/dL 33.0-36. 0 L RED CELL DISTRIBUTION WIDTH (test code = RDW) 19.0 % 11.6-16. 2 H RED CELL DISTRIBUTION WIDTH SD (test code = RDW-SD) 65.7 fL 37 .0-51.0 H PLATELET COUNT (test code = PLT) 165 K/mm3 150-450 N MEAN PLATELET VOLUME (test code = MPV) 12.3 fL 6.7-11.0 H IMMATURE GRANULOCYTE % (test code = IG%) 0.5 % 0.0-5.0 N NUCLEATED RBC % (test code = NRBC%) 0.0 % 0-0 N NEUTROPHIL # (test code = NT#) 7.93 K/mm3 1.8-7.7 H IMMATURE GRANULOCYTE # (test code = IG#) 0.05 x10 3/uL 0-0.03 H LYMPHOCYTE # (test code = LY#) 2.07 K/mm3 1.0-5.0 N MONOCYTE # (test code = MO#) 0.47 K/mm3 0-0.8 N EOSINOPHIL # (test code = EO#) 0.27 K/mm3 0.0-0.5 N BASOPHIL # (test code = BA#) 0.07 K/mm3 0.0-0.2 N NUCLEATED RBC # (test code = NRBC#) 0.00 K/mm3 0.0-0.1 N MANUAL DIFF REQUIRED (test code = MDIFF) YES STAIN ACCEPTABILITY (test code = STN ACCEPTABLE) TOTAL CELLS COUNTED (test code = TCC) #CELLS SEGMENTED NEUTROPHILS (test code = SEG) % 39-69 LYMPHOCYTE (test code = LYMPH) % 25-55 MONOCYTE (test code = MON) % 0-10 MORPHOLOGY COMMENT (test code = MOC) PLATELET ESTIMATE (test code = PLTEST) PLATELET MORPHOLOGY (test code = PLTMORPH) CBC W/MANUAL [id number] 07:38:00* Test Item Value Reference Range Interpretation Comments WHITE BLOOD CELL (test code = WBC) 10.9 K/mm3 4.5-12.5 N RED BLOOD CELL (test code = RBC) 3.74 mill/mm3 3.7-5.2 N HEMOGLOBIN (test code = HGB) 10.5 gram/dL 11.5-15.5 L HEMATOCRIT (test code = HCT) 35.3 % 36.0-46.0 L MEAN CELL VOLUME (test code = MCV) 94.4 fL 80-98 N MEAN CELL HGB (test code = MCH) 28.1 picogram 27.0-33.0 N MEAN CELL HGB CONCETRATION (test code = MCHC) 29.7 gram/dL 33.0-36. 0 L RED CELL DISTRIBUTION WIDTH (test code = RDW) 19.0 % 11.6-16. 2 H RED CELL DISTRIBUTION WIDTH SD (test code = RDW-SD) 65.7 fL 37 .0-51.0 H PLATELET COUNT (test code = PLT) 165 K/mm3 150-450 N MEAN PLATELET VOLUME (test code = MPV) 12.3 fL 6.7-11.0 H IMMATURE GRANULOCYTE % (test code = IG%) 0.5 % 0.0-5.0 N NUCLEATED RBC % (test code = NRBC%) 0.0 % 0-0 N NEUTROPHIL # (test code = NT#) 7.93 K/mm3 1.8-7.7 H IMMATURE GRANULOCYTE # (test code = IG#) 0.05 x10 3/uL 0-0.03 H LYMPHOCYTE # (test code = LY#) 2.07 K/mm3 1.0-5.0 N MONOCYTE # (test code = MO#) 0.47 K/mm3 0-0.8 N EOSINOPHIL # (test code = EO#) 0.27 K/mm3 0.0-0.5 N BASOPHIL # (test code = BA#) 0.07 K/mm3 0.0-0.2 N NUCLEATED RBC # (test code = NRBC#) 0.00 K/mm3 0.0-0.1 N MANUAL DIFF REQUIRED (test code = MDIFF) YES STAIN ACCEPTABILITY (test code = STN ACCEPTABLE) TOTAL CELLS COUNTED (test code = TCC) #CELLS SEGMENTED NEUTROPHILS (test code = SEG) % 39-69 LYMPHOCYTE (test code = LYMPH) % 25-55 MONOCYTE (test code = MON) % 0-10 EOSINOPHIL (test code = EOS) % 0.0-5.0 [place] (test code = CAB) MORPHOLOGY COMMENT (test code = MOC) PLATELET ESTIMATE (test code = PLTEST) PLATELET MORPHOLOGY (test code = PLTMORPH) Prothrombin Xuwd9253-71-72 14:43:00* Test Item Value Reference Range Interpretation Comments Prothrombin Time (test code = 5902-2) 13.8 11.9-14.5 [facility]thromb [facility] International Ratio 2019-03-18 14:43:00* Test Item Value Reference Range Interpretation Comments Prothromb Time International Ratio (test code = 6301-6) 1.01 Oral Anticoagulant Therapy INR Values:1. Low Intensity Therapy 1.5 - 2.02 . Moderate Intensity Therapy 2.0 - 3.03. High Intensity Therapy(1) 2.5 - 3. 54. High Intensity Therapy(2) 3.0 - 4.05. Panic Value INR > 5.0 [facility] Dlmzj3265-26-21 14:43:00* Test Item Value Reference Range Interpretation Comments Sodium Level (test code = 2951-2) 141 136-145 [facility]Potassium Onioh6278-36-09 14:43:00* Test Item Value Reference Range Interpretation Comments Potassium Level (test code = 2823-3) 4.3 3.5-5.1 [facility] HospitalChloride Ocayh2040-83-74 14:43:00* Test Item Value Reference Range Interpretation Comments Chloride Level (test code = 2075-0) 113 98-107 H [facility] HospitalCarbon Dioxide Ptvxw6910-17-76 14:43:00* Test Item Value Reference Range Interpretation Comments Carbon Dioxide Level (test code = 2028-9) 18 22-29 L [facility] HospitalAnion Yhx4265-44-57 14:43:00* Test Item Value Reference Range Interpretation Comments Anion Gap (test code = 14495-1) 14.3 8-16 [facility] HospitalBlood Urea Dmvggkhr7866-92-50 14:43:00* Test Item Value Reference Range Interpretation Comments Blood Urea Nitrogen (test code = 3094-0) 27 7-26 H [facility] HospitalCreatinine2019-08-31 14:43:00* Test Item Value Reference Range Interpretation Comments Creatinine (test code = 2160-0) 1.82 0.57-1.11 H [facility] HospitalBUN/Creatinine Ifojj1639-44-29 14:43:00* Test Item Value Reference Range Interpretation Comments BUN/Creatinine Ratio (test code = 3097-3) 15 6-25 [facility] HospitalEstimat Glomerular Filtration Rate 2019-03-18 14:43:00* Test Item Value Reference Range Interpretation Comments Estimat Glomerular Filtration Rate (test code = 300894093) 29 >60 L Ranges were taken from the National Kidney Disease Education Program and the [facility] Foundation literature.Reference ranges:60 or greater: Pcwvbo01-22 ( for 3 consecutive months): Chronic kidney disease 15 or less: Kidney failureMayhill HospitalGlucose Uppew4867-36-61 14:43:00* Test Item Value Reference Range Interpretation Comments Glucose Level (test code = HZU3276) 106 74-118 [facility] HospitalCalcium Vwcsk3429-00-84 14:43:00* Test Item Value Reference Range Interpretation Comments Calcium Level (test code = 27641-8) 9.3 8.4-10.2 [facility] HospitalTotal Hdarjbvzk5225-70-08 14:43:00* Test Item Value Reference Range Interpretation Comments Total Bilirubin (test code = 1975-2) 1.1 0.2-1.2 [facility] HospitalAspartate Amino Transf (AST/SGOT) 2019-03-18 14:43:00* Test Item Value Reference Range Interpretation Comments Aspartate Amino Transf (AST/SGOT) (test code = Aspartate Amino Transf (AST/SGOT)) 58 5-34 H [facility] HospitalAlanine Aminotransferase (ALT/SGPT) 2019-03-18 14:43:00* Test Item Value Reference Range Interpretation Comments Alanine Aminotransferase (ALT/SGPT) (test code = 1742-6) 41 0-55 [facility] HospitalTotal Sfwtmue8383-37-64 14:43:00* Test Item Value Reference Range Interpretation Comments Total Protein (test code = 2885-2) 7.3 6.5-8.1 [facility] HospitalAlbumin2019-08-31 14:43:00* Test Item Value Reference Range Interpretation Comments Albumin (test code = 1751-7) 2.2 3.5-5.0 L [facility] HospitalGlobulin2019-08-31 14:43:00* Test Item Value Reference Range Interpretation Comments Globulin (test code = 66989-4) 5.1 2.3-3.5 H [facility] HospitalAlbumin/Globulin Vzpub2661-86-42 14:43:00 * Test Item Value Reference Range Interpretation Comments Albumin/Globulin Ratio (test code = 1759-0) 0.4 0.8-2.0 L [facility] HospitalAlkaline Qlpyicvqvyq8321-12-58 14:43:00* Test Item Value Reference Range Interpretation Comments Alkaline Phosphatase (test code = 6768-6) 674 40-150 H [facility] HospitalProthrombin Ongb2406-58-06 14:43:00* Test Item Value Reference Range Interpretation Comments Prothrombin Time (test code = 5902-2) 13.8 11.9-14.5 [facility] HospitalProthromb Time International Ratio 2019-03-18 14:43:00* Test Item Value Reference Range Interpretation Comments Prothromb Time International Ratio (test code = 6301-6) 1.01 Oral Anticoagulant Therapy INR Values:1. Low Intensity Therapy 1.5 - 2.02 . Moderate Intensity Therapy 2.0 - 3.03. High Intensity Therapy(1) 2.5 - 3. 54. High Intensity Therapy(2) 3.0 - 4.05. Panic Value INR > 5.0 [facility] Auneh3602-43-37 14:43:00* Test Item Value Reference Range Interpretation Comments Sodium Level (test code = 2951-2) 141 136-145 [facility] HospitalPotassium Wqxdu6907-44-98 14:43:00* Test Item Value Reference Range Interpretation Comments Potassium Level (test code = 2823-3) 4.3 3.5-5.1 [facility] HospitalChloride Iskdo7307-62-89 14:43:00* Test Item Value Reference Range Interpretation Comments Chloride Level (test code = 2075-0) 113 98-107 H [facility] HospitalCarbon Dioxide Shzsa3663-97-42 14:43:00* Test Item Value Reference Range Interpretation Comments Carbon Dioxide Level (test code = 2028-9) 18 22-29 L [facility] HospitalAnion Zcv6756-05-10 14:43:00* Test Item Value Reference Range Interpretation Comments Anion Gap (test code = 81167-7) 14.3 8-16 [facility] HospitalBlood Urea Vhpktxln8770-92-60 14:43:00* Test Item Value Reference Range Interpretation Comments Blood Urea Nitrogen (test code = 3094-0) 27 7-26 H [facility] HospitalCreatinine2019-08-31 14:43:00* Test Item Value Reference Range Interpretation Comments Creatinine (test code = 2160-0) 1.82 0.57-1.11 H [facility] HospitalBUN/Creatinine Srulp9068-22-52 14:43:00* Test Item Value Reference Range Interpretation Comments BUN/Creatinine Ratio (test code = 3097-3) 15 6-25 [facility] HospitalEstimat Glomerular Filtration Rate 2019-03-18 14:43:00* Test Item Value Reference Range Interpretation Comments Estimat Glomerular Filtration Rate (test code = 565680698) 29 >60 L Ranges were taken from the National Kidney Disease Education Program and the [facility] literature.Reference ranges:60 or greater: Fgqtpu06-84 ( for 3 consecutive months): Chronic kidney disease 15 or less: Kidney failureMayhill HospitalGlucose Yaimg9266-86-56 14:43:00* Test Item Value Reference Range Interpretation Comments Glucose Level (test code = OET2851) 106 74-118 [facility] HospitalCalcium Zttze3777-02-97 14:43:00* Test Item Value Reference Range Interpretation Comments Calcium Level (test code = 67042-6) 9.3 8.4-10.2 [facility] HospitalTotal Blpjpubqv8472-76-76 14:43:00* Test Item Value Reference Range Interpretation Comments Total Bilirubin (test code = 1975-2) 1.1 0.2-1.2 [facility] HospitalAspartate Amino Transf (AST/SGOT) 2019-03-18 14:43:00* Test Item Value Reference Range Interpretation Comments Aspartate Amino Transf (AST/SGOT) (test code = Aspartate Amino Transf (AST/SGOT)) 58 5-34 H [facility] HospitalAlanine Aminotransferase (ALT/SGPT) 2019-03-18 14:43:00* Test Item Value Reference Range Interpretation Comments Alanine Aminotransferase (ALT/SGPT) (test code = 1742-6) 41 0-55 [facility] HospitalTotal Fxvfnwi4124-65-58 14:43:00* Test Item Value Reference Range Interpretation Comments Total Protein (test code = 2885-2) 7.3 6.5-8.1 [facility] HospitalAlbumin2019-08-31 14:43:00* Test Item Value Reference Range Interpretation Comments Albumin (test code = 1751-7) 2.2 3.5-5.0 L [facility] HospitalGlobulin2019-08-31 14:43:00* Test Item Value Reference Range Interpretation Comments Globulin (test code = 65109-1) 5.1 2.3-3.5 H [facility] HospitalAlbumin/Globulin Vhcxq0643-53-48 14:43:00 * Test Item Value Reference Range Interpretation Comments Albumin/Globulin Ratio (test code = 1759-0) 0.4 0.8-2.0 L [facility] HospitalAlkaline Sovavsnuzdq0890-16-82 14:43:00* Test Item Value Reference Range Interpretation Comments Alkaline Phosphatase (test code = 6768-6) 674 40-150 H [facility] HospitalUrine BJW5626-19-78 14:39:00* Test Item Value Reference Range Interpretation Comments Urine WBC (test code = 5821-4) >50 0-5 H [facility] HospitalUrine MQL8467-31-01 14:39:00* Test Item Value Reference Range Interpretation Comments Urine RBC (test code = 59164-6) 11-20 0-5 H [facility] HospitalUrine Wbooadwb8921-68-47 14:39:00* Test Item Value Reference Range Interpretation Comments Urine Bacteria (test code = 86722-0) MANY NONE H [facility] HospitalUrine Epithelial Ielpz6171-57-05 14:39:00 * Test Item Value Reference Range Interpretation Comments Urine Epithelial Cells (test code = 28741-1) RARE NONE [facility] HospitalUrine Amorphous Wgwyczph4599-05-00 14:39:00* Test Item Value Reference Range Interpretation Comments Urine Amorphous Sediment (test code = 8246-1) FEW FEW [facility] PHU8470-94-55 14:39:00* Test Item Value Reference Range Interpretation Comments Urine WBC (test code = 5821-4) >50 0-5 H [facility] JNQ3444-26-42 14:39:00* Test Item Value Reference Range Interpretation Comments Urine RBC (test code = 72833-7) 11-20 0-5 H [facility] Dhzbrleo3239-50-57 14:39:00* Test Item Value Reference Range Interpretation Comments Urine Bacteria (test code = 76905-2) MANY NONE H [facility] HospitalUrine Epithelial Fhpfk2203-04-97 14:39:00 * Test Item Value Reference Range Interpretation Comments Urine Epithelial Cells (test code = 26182-2) RARE NONE [facility] Amorphous Hnooyerr2682-27-01 14:39:00* Test Item Value Reference Range Interpretation Comments Urine Amorphous Sediment (test code = 8246-1) FEW FEW [facility] CYE9705-27-88 14:39:00* Test Item Value Reference Range Interpretation Comments Urine WBC (test code = 5821-4) >50 0-5 H [facility] ESH9821-04-27 14:39:00* Test Item Value Reference Range Interpretation Comments Urine RBC (test code = 18128-0) 11-20 0-5 H [facility] Ioslzlbr9411-66-87 14:39:00* Test Item Value Reference Range Interpretation Comments Urine Bacteria (test code = 20042-2) MANY NONE H [facility] Epithelial Cgeao7736-50-65 14:39:00 * Test Item Value Reference Range Interpretation Comments Urine Epithelial Cells (test code = 82122-3) RARE NONE [facility] Amorphous Notupmem5397-30-90 14:39:00* Test Item Value Reference Range Interpretation Comments Urine Amorphous Sediment (test code = 8246-1) FEW FEW [facility] Amorphous Tsqzvkfc9267-23-64 14:39:00* Test Item Value Reference Range Interpretation Comments Urine Amorphous Sediment (test code = 8246-1) FEW FEW [facility] HospitalLactic Acid Ossll8489-30-52 14:34:00* Test Item Value Reference Range Interpretation Comments Lactic Acid Level (test code = Lactic Acid Level) 11.8 4.5- 19.8 [facility] HospitalLactic Acid Mzjrb4016-30-34 14:34:00* Test Item Value Reference Range Interpretation Comments Lactic Acid Level (test code = Lactic Acid Level) 11.8 4.5- 19.8 [facility] HospitalLactic Acid Yqsgs9400-77-30 14:34:00* Test Item Value Reference Range Interpretation Comments Lactic Acid Level (test code = Lactic Acid Level) 11.8 4.5- 19.8 [facility]2019-08-31 14:33:00* Test Item Value Reference Range Interpretation Comments Ammonia (test code = 67677-3) 73 31-123 [facility]2019-08-31 14:33:00* Test Item Value Reference Range Interpretation Comments Ammonia (test code = 65782-5) 73 31-123 [facility]2019-08-31 14:33:00* Test Item Value Reference Range Interpretation Comments Ammonia (test code = 66759-9) 73 31-123 [facility] HospitalUrine Qlgla4113-92-17 14:32:00* Test Item Value Reference Range Interpretation Comments Urine Color (test code = 5778-6) YELLOW YELLOW [facility] HospitalUrine Goohumy5711-68-18 14:32:00* Test Item Value Reference Range Interpretation Comments Urine Clarity (test code = 46076-2) SL CLOUDY CLEAR [facility] HospitalUrine Specific Ojuhifd4164-28-48 14:32:00 * Test Item Value Reference Range Interpretation Comments Urine Specific [place] (test code = 5811-5) 1.020 1.010-1.02 5 [facility] HospitalUrine mD0952-17-43 14:32:00* Test Item Value Reference Range Interpretation Comments Urine pH (test code = 23975-5) 6 5-7 [facility] Leukocyte Gxsnycdz0887-91-23 14:32:00* Test Item Value Reference Range Interpretation Comments Urine Leukocyte Esterase (test code = 02224-3) LARGE NEGATIV E [facility] HospitalUrine Ihlhfsp6261-07-95 14:32:00* Test Item Value Reference Range Interpretation Comments Urine Nitrite (test code = 24221-2) POSITIVE NEGATIVE H [facility] HospitalUrine Kpdqtdc3011-43-47 14:32:00* Test Item Value Reference Range Interpretation Comments Urine Protein (test code = 21850-8) 1+ NEGATIVE H [facility] HospitalUrine Glucose (UA)2019-03-18 14:32:00* Test Item Value Reference Range Interpretation Comments Urine Glucose (UA) (test code = 25479-9) NEGATIVE NEGATIVE [facility] Qdpjunx5140-38-69 14:32:00* Test Item Value Reference Range Interpretation Comments Urine Ketones (test code = 86835-7) NEGATIVE NEGATIVE [facility] Xjmesydwgpxq1748-12-44 14:32:00* Test Item Value Reference Range Interpretation Comments Urine Urobilinogen (test code = 52722-2) 0.2 0.2-1 [facility] Emugdkfeh7341-97-76 14:32:00* Test Item Value Reference Range Interpretation Comments Urine Bilirubin (test code = 1977-8) NEGATIVE NEGATIVE [facility] Zlopz9960-23-11 14:32:00* Test Item Value Reference Range Interpretation Comments Urine Blood (test code = 06265-2) 3+ NEGATIVE [facility] Eccgy6235-12-04 14:32:00* Test Item Value Reference Range Interpretation Comments Urine Color (test code = 5778-6) YELLOW YELLOW [facility] Kthrmnl1436-62-77 14:32:00* Test Item Value Reference Range Interpretation Comments Urine Clarity (test code = 53234-2) SL CLOUDY CLEAR [facility] HospitalUrine Specific Smtkiiw0066-38-83 14:32:00 * Test Item Value Reference Range Interpretation Comments Urine Specific [place] (test code = 5811-5) 1.020 1.010-1.02 5 [facility] HospitalU[facility] pL3160-64-80 14:32:00* Test Item Value Reference Range Interpretation Comments Urine pH (test code = 26476-4) 6 5-7 [facility] Leukocyte Pbkwqwyj5956-36-71 14:32:00* Test Item Value Reference Range Interpretation Comments Urine Leukocyte Esterase (test code = 55402-5) LARGE NEGATIV E [facility] Ozyxwrf8170-50-52 14:32:00* Test Item Value Reference Range Interpretation Comments Urine Nitrite (test code = 77392-1) POSITIVE NEGATIVE H [facility] Yecnebp1186-18-72 14:32:00* Test Item Value Reference Range Interpretation Comments Urine Protein (test code = 72658-9) 1+ NEGATIVE H [facility] Glucose (UA)2019-03-18 14:32:00* Test Item Value Reference Range Interpretation Comments Urine Glucose (UA) (test code = 74913-0) NEGATIVE NEGATIVE [facility] Qmzenyf2704-77-78 14:32:00* Test Item Value Reference Range Interpretation Comments Urine Ketones (test code = 41974-0) NEGATIVE NEGATIVE [facility] Ltwwdyuxixbd9249-83-70 14:32:00* Test Item Value Reference Range Interpretation Comments Urine Urobilinogen (test code = 97345-0) 0.2 0.2-1 [facility] Swflydoom5205-64-81 14:32:00* Test Item Value Reference Range Interpretation Comments Urine Bilirubin (test code = 1977-8) NEGATIVE NEGATIVE [facility] Nmncn5684-33-35 14:32:00* Test Item Value Reference Range Interpretation Comments Urine Blood (test code = 03995-7) 3+ NEGATIVE [facility] Sfivi2542-63-30 14:32:00* Test Item Value Reference Range Interpretation Comments Urine Color (test code = 5778-6) YELLOW YELLOW [facility] HospitalU[facility] Kayelpo5212-50-33 14:32:00* Test Item Value Reference Range Interpretation Comments Urine Clarity (test code = 68167-3) SL CLOUDY CLEAR [facility] HospitalU[facility] Specific Kbvvgcz7802-91-97 14:32:00 * Test Item Value Reference Range Interpretation Comments Urine Specific [place] (test code = 5811-5) 1.020 1.010-1.02 5 [facility] gU9322-45-28 14:32:00* Test Item Value Reference Range Interpretation Comments Urine pH (test code = 68459-4) 6 5-7 [facility] HospitalU[facility] Leukocyte Fsjdymnr6880-39-37 14:32:00* Test Item Value Reference Range Interpretation Comments Urine Leukocyte Esterase (test code = 90983-6) LARGE NEGATIV E [facility] Mpvhepb8346-96-33 14:32:00* Test Item Value Reference Range Interpretation Comments Urine Nitrite (test code = 19782-7) POSITIVE NEGATIVE [facility] Rouoglx9562-18-30 14:32:00* Test Item Value Reference Range Interpretation Comments Urine Protein (test code = 03009-3) 1+ NEGATIVE H [facility] Glucose (UA)2019-03-18 14:32:00* Test Item Value Reference Range Interpretation Comments Urine Glucose (UA) (test code = 33029-7) NEGATIVE NEGATIVE [facility] Strvhju4888-67-38 14:32:00* Test Item Value Reference Range Interpretation Comments Urine Ketones (test code = 05245-7) NEGATIVE NEGATIVE [facility] Ucocjbnsgqph5422-48-30 14:32:00* Test Item Value Reference Range Interpretation Comments Urine Urobilinogen (test code = 40981-7) 0.2 0.2-1 [facility] Vxhyivqph2617-35-42 14:32:00* Test Item Value Reference Range Interpretation Comments Urine Bilirubin (test code = 1977-8) NEGATIVE NEGATIVE [facility] HospitalU[facility] Deknu6606-76-63 14:32:00* Test Item Value Reference Range Interpretation Comments Urine Blood (test code = 98710-3) 3+ NEGATIVE [facility] HospitalWhite Blood Vwzis3533-70-34 14:31:00* Test Item Value Reference Range Interpretation Comments White Blood Count (test code = 6690-2) 5.47 4.8-10.8 [facility] HospitalRed Blood Nkcfa8144-40-88 14:31:00* Test Item Value Reference Range Interpretation Comments Red Blood Count (test code = 789-8) 2.86 3.6-5.1 L [facility] HospitalHemoglobin2019-08-31 14:31:00* Test Item Value Reference Range Interpretation Comments Hemoglobin (test code = 57807-8) 8.0 12.0-16.0 L [facility] HospitalHematocrit2019-08-31 14:31:00* Test Item Value Reference Range Interpretation Comments Hematocrit (test code = 4544-3) 26.3 34.2-44.1 L [facility] HospitalMean Corpuscular Bddjdy3743-85-16 14:31:00* Test Item Value Reference Range Interpretation Comments Mean Corpuscular Volume (test code = 787-2) 92.0 81-99 [facility] HospitalMean Corpuscular Zkuktxvqfy7913-63-82 14:31:00* Test Item Value Reference Range Interpretation Comments Mean Corpuscular Hemoglobin (test code = 785-6) 28.0 28-32 [facility] HospitalMean Corpuscular Hemoglobin Concent 2019-03-18 14:31:00* Test Item Value Reference Range Interpretation Comments Mean Corpuscular Hemoglobin Concent (test code = 786-4) 30.4 31-35 L [facility] HospitalRed Cell Distribution Yyhuu8677-62-45 14:31:00* Test Item Value Reference Range Interpretation Comments Red Cell Distribution Width (test code = 02833-5) 18.5 11.7 -14.4 H [facility] HospitalPlatelet Fpcbl1798-27-72 14:31:00* Test Item Value Reference Range Interpretation Comments Platelet Count (test code = 777-3) 105 140-360 L [facility] HospitalNeutrophils (%) (Auto)2019-03-18 14:31:00 * Test Item Value Reference Range Interpretation Comments Neutrophils (%) (Auto) (test code = 04075-3) 67.5 38.7-80.0 [facility] HospitalLymphocytes (%) (Auto)2019-03-18 14:31:00 * Test Item Value Reference Range Interpretation Comments Lymphocytes (%) (Auto) (test code = 736-9) 18.8 18.0-39.1 [facility] HospitalMonocytes (%) (Auto)2019-03-18 14:31:00* Test Item Value Reference Range Interpretation Comments Monocytes (%) (Auto) (test code = 5905-5) 6.4 4.4-11.3 [facility] HospitalEosinophils (%) (Auto)2019-03-18 14:31:00 * Test Item Value Reference Range Interpretation Comments Eosinophils (%) (Auto) (test code = 713-8) 6.4 0.0-6.0 H [facility] HospitalBasophils (%) (Auto)2019-03-18 14:31:00* Test Item Value Reference Range Interpretation Comments Basophils (%) (Auto) (test code = 706-2) 0.5 0.0-1.0 [facility] HospitalIM GRANULOCYTES %2019-03-18 14:31:00* Test Item Value Reference Range Interpretation Comments IM GRANULOCYTES % (test code = IM GRANULOCYTES %) 0.4 0.0- 1.0 [facility] HospitalNeutrophils # (Auto)2019-03-18 14:31:00* Test Item Value Reference Range Interpretation Comments Neutrophils # (Auto) (test code = 751-8) 3.7 2.1-6.9 [facility] HospitalLymphocytes # (Auto)2019-03-18 14:31:00* Test Item Value Reference Range Interpretation Comments Lymphocytes # (Auto) (test code = 93878-1) 1.0 1.0-3.2 [facility] HospitalMonocytes # (Auto)2019-03-18 14:31:00* Test Item Value Reference Range Interpretation Comments Monocytes # (Auto) (test code = 742-7) 0.4 0.2-0.8 [facility] HospitalEosinophils # (Auto)2019-03-18 14:31:00* Test Item Value Reference Range Interpretation Comments Eosinophils # (Auto) (test code = 711-2) 0.4 0.0-0.4 [facility] HospitalBasophils # (Auto)2019-03-18 14:31:00* Test Item Value Reference Range Interpretation Comments Basophils # (Auto) (test code = 704-7) 0.0 0.0-0.1 [facility] HospitalAbsolute Immature Granulocyte (auto 2019-03-18 14:31:00* Test Item Value Reference Range Interpretation Comments Absolute Immature Granulocyte (auto (patel t code = Absolute Immature Granulocyte (auto) 0.02 0-0.1 [facility] HospitalWhite Blood Ngdtj3400-40-56 14:31:00* Test Item Value Reference Range Interpretation Comments White Blood Count (test code = 6690-2) 5.47 4.8-10.8 [facility] HospitalRed Blood Qptsu3899-57-26 14:31:00* Test Item Value Reference Range Interpretation Comments Red Blood Count (test code = 789-8) 2.86 3.6-5.1 L [facility] HospitalHemoglobin2019-08-31 14:31:00* Test Item Value Reference Range Interpretation Comments Hemoglobin (test code = 45899-3) 8.0 12.0-16.0 L [facility] HospitalHematocrit2019-08-31 14:31:00* Test Item Value Reference Range Interpretation Comments Hematocrit (test code = 4544-3) 26.3 34.2-44.1 L [facility] HospitalMean Corpuscular Nzidlm9250-43-92 14:31:00* Test Item Value Reference Range Interpretation Comments Mean Corpuscular Volume (test code = 787-2) 92.0 81-99 [facility] HospitalMean Corpuscular Svfgmdtcds9549-42-03 14:31:00* Test Item Value Reference Range Interpretation Comments Mean Corpuscular Hemoglobin (test code = 785-6) 28.0 28-32 [facility] HospitalMean Corpuscular Hemoglobin Concent 2019-03-18 14:31:00* Test Item Value Reference Range Interpretation Comments Mean Corpuscular Hemoglobin Concent (test code = 786-4) 30.4 31-35 L [facility] HospitalRed Cell Distribution Bugku9833-51-56 14:31:00* Test Item Value Reference Range Interpretation Comments Red Cell Distribution Width (test code = 92794-1) 18.5 11.7 -14.4 H [facility] HospitalPlatelet Nsolf4972-98-60 14:31:00* Test Item Value Reference Range Interpretation Comments Platelet Count (test code = 777-3) 105 140-360 L [facility] HospitalNeutrophils (%) (Auto)2019-03-18 14:31:00 * Test Item Value Reference Range Interpretation Comments Neutrophils (%) (Auto) (test code = 11987-7) 67.5 38.7-80.0 [facility] HospitalLymphocytes (%) (Auto)2019-03-18 14:31:00 * Test Item Value Reference Range Interpretation Comments Lymphocytes (%) (Auto) (test code = 736-9) 18.8 18.0-39.1 [facility] HospitalMonocytes (%) (Auto)2019-03-18 14:31:00* Test Item Value Reference Range Interpretation Comments Monocytes (%) (Auto) (test code = 5905-5) 6.4 4.4-11.3 [facility] HospitalEosinophils (%) (Auto)2019-03-18 14:31:00 * Test Item Value Reference Range Interpretation Comments Eosinophils (%) (Auto) (test code = 713-8) 6.4 0.0-6.0 H [facility] HospitalBasophils (%) (Auto)2019-03-18 14:31:00* Test Item Value Reference Range Interpretation Comments Basophils (%) (Auto) (test code = 706-2) 0.5 0.0-1.0 [facility] HospitalIM GRANULOCYTES %2019-03-18 14:31:00* Test Item Value Reference Range Interpretation Comments IM GRANULOCYTES % (test code = IM GRANULOCYTES %) 0.4 0.0- 1.0 [facility] HospitalNeutrophils # (Auto)2019-03-18 14:31:00* Test Item Value Reference Range Interpretation Comments Neutrophils # (Auto) (test code = 751-8) 3.7 2.1-6.9 [facility] HospitalLymphocytes # (Auto)2019-03-18 14:31:00* Test Item Value Reference Range Interpretation Comments Lymphocytes # (Auto) (test code = 23222-6) 1.0 1.0-3.2 [facility] HospitalMonocytes # (Auto)2019-03-18 14:31:00* Test Item Value Reference Range Interpretation Comments Monocytes # (Auto) (test code = 742-7) 0.4 0.2-0.8 [facility] HospitalEosinophils # (Auto)2019-03-18 14:31:00* Test Item Value Reference Range Interpretation Comments Eosinophils # (Auto) (test code = 711-2) 0.4 0.0-0.4 [facility] HospitalBasophils # (Auto)2019-03-18 14:31:00* Test Item Value Reference Range Interpretation Comments Basophils # (Auto) (test code = 704-7) 0.0 0.0-0.1 [facility] HospitalAbsolute Immature Granulocyte (auto 2019-03-18 14:31:00* Test Item Value Reference Range Interpretation Comments Absolute Immature Granulocyte (auto (patel t code = Absolute Immature Granulocyte (auto) 0.02 0-0.1 [facility] HospitalCHEST SINGLE (PORTABLE)2019-03-18 13:53:00 [place] [address] Patient Name: SIOBHAN BARBOSA MR #: [id number] : 1965 Age/Sex: 54/F Req #: [id number] Adm Physician: Ordered by: LAUREN CALLOWAY MD Report #: [id number] Location: Room/Bed: Procedure: [id number] DX/CHEST SINGLE (PORTABLE) [...] evaluate for resolution. 2. Cardiomegaly. Signed by: Lakshmi LiuOWilliams, M.M.M. on 03/18/2019 1:57 PM Dictated By: HERNAN Moreirai isabelle Signed By: HERNAN PATEL DO on 03/18/197 Transcribed By: JENNIFER on 6 COPY TO: LAUREN CALLOWAY MD Amorphous sediment detection in urine sediment by light mpqaeihfsb9625-48-42 13:30:00* Test Item Value Reference Range Interpretation Comments Urine Amorphous Sediment (test code = 8246-1) FEW FEW [facility] Nzsvzoy2163-87-32 02:37:00* Test Item Value Reference Range Interpretation Comments Blood Culture (test code = 88410414) NO GROWTH AFTER 5 DAYS, FINAL REPORT [facility] Hrlgulx3997-87-79 02:37:00* Test Item Value Reference Range Interpretation Comments Blood Culture (test code = 68468915) NO GROWTH AFTER 5 DAYS, FINAL REPORT [facility]2019-[facility]-07 07:29:00 [facility] [address] [place] [address] Patient Name: SIOBHAN BARBOSA MR #: [id number] : 1965 Age/Sex: 53/F Req #: [id number] Adm Physician: KIM DILL MD Ordered by: KIM DILL MD Report #: [id number] Location: ICU Room/Bed: ICU [facility] Procedure: [id number] DX /CHEST SINGLE (PORTABLE) Exam Date: 01/07/19 Exam Ti me: 0550 REPORT STATUS: Signed E XAMINATION: CHEST SINGLE (PORTABLE) INDICATION: Resp Failure [id number] 0550 COMPARISON: 01/06/2019 FINDINGS: AP vie w TUBES and LINES: Unchanged right adjacent venous [...] Persistent complete opacification of the left hemithorax du e to a combination of effusion and atelectasis. Signed by: Dr. Taylor Merino M.D. on 01/07/2019 7:31 AM Dictated By: RENETTA DELGADO MD 1 Transcribed By: JENNIFER on 01/07/19730 COPY TO: KIM DILL MD Sodium Jdbej3117-44-35 05:22:00* Test Item Value Reference Range Interpretation Comments Sodium Level (test code = 2951-2) 141 136-145 [facility] HospitalPotassium Fybmk0546-81-56 05:22:00* Test Item Value Reference Range Interpretation Comments Potassium Level (test code = 2823-3) 3.7 3.5-5.1 [facility] HospitalChloride Hmbbj1718-93-93 05:22:00* Test Item Value Reference Range Interpretation Comments Chloride Level (test code = 2075-0) 105 98-107 [facility] HospitalCarbon Dioxide Wqgqm6131-49-29 05:22:00* Test Item Value Reference Range Interpretation Comments Carbon Dioxide Level (test code = 2028-9) 27 22-29 [facility] HospitalAnion Abv2016-37-83 05:22:00* Test Item Value Reference Range Interpretation Comments Anion Gap (test code = 61954-3) 12.7 8-16 [facility] HospitalBlood Urea Kssflpwm5704-20-57 05:22:00* Test Item Value Reference Range Interpretation Comments Blood Urea Nitrogen (test code = 3094-0) 23 7-26 [facility] HospitalCreatinine2019-06-22 05:22:00* Test Item Value Reference Range Interpretation Comments Creatinine (test code = 2160-0) 2.16 0.57-1.11 H [facility] HospitalBUN/Creatinine Xchyg1690-42-18 05:22:00* Test Item Value Reference Range Interpretation Comments BUN/Creatinine Ratio (test code = 3097-3) 11 6-25 [facility] HospitalEstimat Glomerular Filtration Rate 2019-01-07 05:22:00* Test Item Value Reference Range Interpretation Comments Estimat Glomerular Filtration Rate (test code = 704755158) 24 >60 L Ranges were taken from the National Kidney Disease Education Program and the [facility] Foundation literature.Reference ranges:60 or greater: Rqntbk58-80 ( for 3 consecutive months): Chronic kidney disease 15 or less: Kidney failureMayhill HospitalGlucose Uakuc2763-01-60 05:22:00* Test Item Value Reference Range Interpretation Comments Glucose Level (test code = QMT7154) 87 74-118 [facility] HospitalCalcium Pzwkc1773-05-18 05:22:00* Test Item Value Reference Range Interpretation Comments Calcium Level (test code = 39779-7) 8.4 8.4-10.2 [facility] HospitalTotal Nutgmnilh5924-76-99 05:22:00* Test Item Value Reference Range Interpretation Comments Total Bilirubin (test code = 1975-2) 1.2 0.2-1.2 [facility] HospitalAspartate Amino Transf (AST/SGOT) 2019-01-07 05:22:00* Test Item Value Reference Range Interpretation Comments Aspartate Amino Transf (AST/SGOT) (test code = Aspartate Amino Transf (AST/SGOT)) 19 5-34 [facility] HospitalAlanine Aminotransferase (ALT/SGPT) 2019-01-07 05:22:00* Test Item Value Reference Range Interpretation Comments Alanine Aminotransferase (ALT/SGPT) (test code = 1742-6) 17 0-55 [facility] HospitalTotal Psphjxw5227-37-37 05:22:00* Test Item Value Reference Range Interpretation Comments Total Protein (test code = 2885-2) 5.8 6.5-8.1 L [facility] HospitalAlbumin2019-06-22 05:22:00* Test Item Value Reference Range Interpretation Comments Albumin (test code = 1751-7) 1.5 3.5-5.0 L [facility] HospitalGlobulin2019-06-22 05:22:00* Test Item Value Reference Range Interpretation Comments Globulin (test code = 43542-0) 4.3 2.3-3.5 H [facility] HospitalAlbumin/Globulin Rrrrk0178-13-57 05:22:00 * Test Item Value Reference Range Interpretation Comments Albumin/Globulin Ratio (test code = 1759-0) 0.3 0.8-2.0 L [facility] HospitalAlkaline Fkgiypqmiga4497-01-90 05:22:00* Test Item Value Reference Range Interpretation Comments Alkaline Phosphatase (test code = 6768-6) 421 40-150 [facility] Yhxjj7065-48-46 05:22:00* Test Item Value Reference Range Interpretation Comments Sodium Level (test code = 2951-2) 141 136-145 [facility] HospitalPotassium Dteoa7036-86-24 05:22:00* Test Item Value Reference Range Interpretation Comments Potassium Level (test code = 2823-3) 3.7 3.5-5.1 [facility] HospitalChloride Fsvyy9865-47-94 05:22:00* Test Item Value Reference Range Interpretation Comments Chloride Level (test code = 2075-0) 105 98-107 [facility] HospitalCarbon Dioxide Tajgd0800-71-14 05:22:00* Test Item Value Reference Range Interpretation Comments Carbon Dioxide Level (test code = 2028-9) 27 22-29 [facility] HospitalAnion Pdx9778-74-91 05:22:00* Test Item Value Reference Range Interpretation Comments Anion Gap (test code = 09842-7) 12.7 8-16 [facility] HospitalBlood Urea Acgfncmf4029-29-07 05:22:00* Test Item Value Reference Range Interpretation Comments Blood Urea Nitrogen (test code = 3094-0) 23 7-26 [facility] HospitalCreatinine2019-06-22 05:22:00* Test Item Value Reference Range Interpretation Comments Creatinine (test code = 2160-0) 2.16 0.57-1.11 H [facility] HospitalBUN/Creatinine Zcrsf9516-99-36 05:22:00* Test Item Value Reference Range Interpretation Comments BUN/Creatinine Ratio (test code = 3097-3) 11 6-25 [facility] HospitalEstimat Glomerular Filtration Rate 2019-01-07 05:22:00* Test Item Value Reference Range Interpretation Comments Estimat Glomerular Filtration Rate (test code = 821929783) 24 >60 L Ranges were taken from the National Kidney Disease Education Program and the [facility] literature.Reference ranges:60 or greater: Rrtsyx43-58 ( for 3 consecutive months): Chronic kidney disease 15 or less: Kidney failureMayhill HospitalGlucose Xrkrv9766-91-98 05:22:00* Test Item Value Reference Range Interpretation Comments Glucose Level (test code = KWJ8098) 87 74-118 [facility] HospitalCalcium Tdkba9595-91-81 05:22:00* Test Item Value Reference Range Interpretation Comments Calcium Level (test code = 70949-8) 8.4 8.4-10.2 [facility] HospitalTotal Garpjjody7772-51-25 05:22:00* Test Item Value Reference Range Interpretation Comments Total Bilirubin (test code = 1975-2) 1.2 0.2-1.2 [facility] HospitalAspartate Amino Transf (AST/SGOT) 2019-01-07 05:22:00* Test Item Value Reference Range Interpretation Comments Aspartate Amino Transf (AST/SGOT) (test code = Aspartate Amino Transf (AST/SGOT)) 19 5-34 [facility] HospitalAlanine Aminotransferase (ALT/SGPT) 2019-01-07 05:22:00* Test Item Value Reference Range Interpretation Comments Alanine Aminotransferase (ALT/SGPT) (test code = 1742-6) 17 0-55 [facility] HospitalTotal Qpcsubt7871-35-42 05:22:00* Test Item Value Reference Range Interpretation Comments Total Protein (test code = 2885-2) 5.8 6.5-8.1 L [facility] HospitalAlbumin2019-06-22 05:22:00* Test Item Value Reference Range Interpretation Comments Albumin (test code = 1751-7) 1.5 3.5-5.0 L [facility] HospitalGlobulin2019-06-22 05:22:00* Test Item Value Reference Range Interpretation Comments Globulin (test code = 31606-3) 4.3 2.3-3.5 H [facility] HospitalAlbumin/Globulin Dqzhe2267-35-26 05:22:00 * Test Item Value Reference Range Interpretation Comments Albumin/Globulin Ratio (test code = 1759-0) 0.3 0.8-2.0 L [facility] HospitalAlkaline Filtexjtjmt8646-41-10 05:22:00* Test Item Value Reference Range Interpretation Comments Alkaline Phosphatase (test code = 6768-6) 421 40-150 H [facility] HospitalWhite Blood Wsuac9447-10-26 04:59:00* Test Item Value Reference Range Interpretation Comments White Blood Count (test code = 6690-2) 5.27 4.8-10.8 [facility] HospitalRed Blood Clcsq9636-32-04 04:59:00* Test Item Value Reference Range Interpretation Comments Red Blood Count (test code = 789-8) 2.69 3.6-5.1 L [facility] HospitalHemoglobin2019-06-22 04:59:00* Test Item Value Reference Range Interpretation Comments Hemoglobin (test code = 29534-6) 7.6 12.0-16.0 L [facility] HospitalHematocrit2019-06-22 04:59:00* Test Item Value Reference Range Interpretation Comments Hematocrit (test code = 4544-3) 24.8 34.2-44.1 L [facility] HospitalMean Corpuscular Cuztrq3511-98-56 04:59:00* Test Item Value Reference Range Interpretation Comments Mean Corpuscular Volume (test code = 787-2) 92.2 81-99 [facility] HospitalMean Corpuscular Erzetopcgz0629-63-17 04:59:00* Test Item Value Reference Range Interpretation Comments Mean Corpuscular Hemoglobin (test code = 785-6) 28.3 28-32 [facility] HospitalMean Corpuscular Hemoglobin Concent 2019-01-07 04:59:00* Test Item Value Reference Range Interpretation Comments Mean Corpuscular Hemoglobin Concent (test code = 786-4) 30.6 31-35 L [facility] HospitalRed Cell Distribution Rherl4807-26-26 04:59:00* Test Item Value Reference Range Interpretation Comments Red Cell Distribution Width (test code = 24437-7) 17.3 11.7 -14.4 H [facility] HospitalPlatelet Zgfog9278-68-22 04:59:00* Test Item Value Reference Range Interpretation Comments Platelet Count (test code = 777-3) 63 140-360 L [facility] HospitalNeutrophils (%) (Auto)2019-01-07 04:59:00 * Test Item Value Reference Range Interpretation Comments Neutrophils (%) (Auto) (test code = 63644-7) 58.7 38.7-80.0 [facility] HospitalLymphocytes (%) (Auto)2019-01-07 04:59:00 * Test Item Value Reference Range Interpretation Comments Lymphocytes (%) (Auto) (test code = 736-9) 28.1 18.0-39.1 [facility] HospitalMonocytes (%) (Auto)2019-01-07 04:59:00* Test Item Value Reference Range Interpretation Comments Monocytes (%) (Auto) (test code = 5905-5) 10.1 4.4-11.3 [facility] HospitalEosinophils (%) (Auto)2019-01-07 04:59:00 * Test Item Value Reference Range Interpretation Comments Eosinophils (%) (Auto) (test code = 713-8) 1.9 0.0-6.0 [facility] HospitalBasophils (%) (Auto)2019-01-07 04:59:00* Test Item Value Reference Range Interpretation Comments Basophils (%) (Auto) (test code = 706-2) 0.6 0.0-1.0 [facility] HospitalIM GRANULOCYTES %2019-01-07 04:59:00* Test Item Value Reference Range Interpretation Comments IM GRANULOCYTES % (test code = IM GRANULOCYTES %) 0.6 0.0- 1.0 [facility] HospitalNeutrophils # (Auto)2019-01-07 04:59:00* Test Item Value Reference Range Interpretation Comments Neutrophils # (Auto) (test code = 751-8) 3.1 2.1-6.9 [facility] HospitalLymphocytes # (Auto)2019-01-07 04:59:00* Test Item Value Reference Range Interpretation Comments Lymphocytes # (Auto) (test code = 05127-3) 1.5 1.0-3.2 [facility] HospitalMonocytes # (Auto)2019-01-07 04:59:00* Test Item Value Reference Range Interpretation Comments Monocytes # (Auto) (test code = 742-7) 0.5 0.2-0.8 [facility] HospitalEosinophils # (Auto)2019-01-07 04:59:00* Test Item Value Reference Range Interpretation Comments Eosinophils # (Auto) (test code = 711-2) 0.1 0.0-0.4 [facility] HospitalBasophils # (Auto)2019-01-07 04:59:00* Test Item Value Reference Range Interpretation Comments Basophils # (Auto) (test code = 704-7) 0.0 0.0-0.1 [facility] HospitalAbsolute Immature Granulocyte (auto 2019-01-07 04:59:00* Test Item Value Reference Range Interpretation Comments Absolute Immature Granulocyte (auto (patel t code = Absolute Immature Granulocyte (auto) 0.03 0-0.1 [facility] HospitalWhite Blood Ynmpl7471-99-46 04:59:00* Test Item Value Reference Range Interpretation Comments White Blood Count (test code = 6690-2) 5.27 4.8-10.8 [facility] HospitalRed Blood Qdkfg8679-87-67 04:59:00* Test Item Value Reference Range Interpretation Comments Red Blood Count (test code = 789-8) 2.69 3.6-5.1 L [facility] HospitalHemoglobin2019-06-22 04:59:00* Test Item Value Reference Range Interpretation Comments Hemoglobin (test code = 61922-9) 7.6 12.0-16.0 L [facility] HospitalHematocrit2019-06-22 04:59:00* Test Item Value Reference Range Interpretation Comments Hematocrit (test code = 4544-3) 24.8 34.2-44.1 L [facility] HospitalMean Corpuscular Pqybcw9871-61-27 04:59:00* Test Item Value Reference Range Interpretation Comments Mean Corpuscular Volume (test code = 787-2) 92.2 81-99 [facility] HospitalMean Corpuscular Dswwmixcsr6082-00-23 04:59:00* Test Item Value Reference Range Interpretation Comments Mean Corpuscular Hemoglobin (test code = 785-6) 28.3 28-32 [facility] HospitalMean Corpuscular Hemoglobin Concent 2019-01-07 04:59:00* Test Item Value Reference Range Interpretation Comments Mean Corpuscular Hemoglobin Concent (test code = 786-4) 30.6 31-35 L [facility] HospitalRed Cell Distribution Foniy5492-45-50 04:59:00* Test Item Value Reference Range Interpretation Comments Red Cell Distribution Width (test code = 26088-4) 17.3 11.7 -14.4 H [facility] HospitalPlatelet Vrhdo5106-58-36 04:59:00* Test Item Value Reference Range Interpretation Comments Platelet Count (test code = 777-3) 63 140-360 L [facility] HospitalNeutrophils (%) (Auto)2019-01-07 04:59:00 * Test Item Value Reference Range Interpretation Comments Neutrophils (%) (Auto) (test code = 42365-0) 58.7 38.7-80.0 [facility] HospitalLymphocytes (%) (Auto)2019-01-07 04:59:00 * Test Item Value Reference Range Interpretation Comments Lymphocytes (%) (Auto) (test code = 736-9) 28.1 18.0-39.1 [facility] HospitalMonocytes (%) (Auto)2019-01-07 04:59:00* Test Item Value Reference Range Interpretation Comments Monocytes (%) (Auto) (test code = 5905-5) 10.1 4.4-11.3 [facility] HospitalEosinophils (%) (Auto)2019-01-07 04:59:00 * Test Item Value Reference Range Interpretation Comments Eosinophils (%) (Auto) (test code = 713-8) 1.9 0.0-6.0 [facility] HospitalBasophils (%) (Auto)2019-01-07 04:59:00* Test Item Value Reference Range Interpretation Comments Basophils (%) (Auto) (test code = 706-2) 0.6 0.0-1.0 [facility] HospitalIM GRANULOCYTES %2019-01-07 04:59:00* Test Item Value Reference Range Interpretation Comments IM GRANULOCYTES % (test code = IM GRANULOCYTES %) 0.6 0.0- 1.0 [facility] HospitalNeutrophils # (Auto)2019-01-07 04:59:00* Test Item Value Reference Range Interpretation Comments Neutrophils # (Auto) (test code = 751-8) 3.1 2.1-6.9 [facility] HospitalLymphocytes # (Auto)2019-01-07 04:59:00* Test Item Value Reference Range Interpretation Comments Lymphocytes # (Auto) (test code = 15119-3) 1.5 1.0-3.2 [facility] HospitalMonocytes # (Auto)2019-01-07 04:59:00* Test Item Value Reference Range Interpretation Comments Monocytes # (Auto) (test code = 742-7) 0.5 0.2-0.8 [facility] HospitalEosinophils # (Auto)2019-01-07 04:59:00* Test Item Value Reference Range Interpretation Comments Eosinophils # (Auto) (test code = 711-2) 0.1 0.0-0.4 [facility] HospitalBasophils # (Auto)2019-01-07 04:59:00* Test Item Value Reference Range Interpretation Comments Basophils # (Auto) (test code = 704-7) 0.0 0.0-0.1 [facility] HospitalAbsolute Immature Granulocyte (auto 2019-01-07 04:59:00* Test Item Value Reference Range Interpretation Comments Absolute Immature Granulocyte (auto (patel t code = Absolute Immature Granulocyte (auto) 0.03 0-0.1 [facility] HospitalVancomycin Level Jovtuk6674-64-83 11:29:00* Test Item Value Reference Range Interpretation Comments Vancomycin Level Trough (test code = 4092-3) 15.5 5.0-10.0 HH Results repeated and called to Amanda Cavanaugh RN at 1127 on 01/06/19 by Giselle Marcos min. Read back and verified.[facility] [place] [place] [place] Pqroos1658-80-68 11:29:00* Test Item Value Reference Range Interpretation Comments Vancomycin Level Trough (test code = 4092-3) 15.5 5.0-10.0 HH Results repeated and called to Amanda Cavanaugh RN at 1127 on 01/06/19 by Giselle Marcos min. Read back and verified.[facility] [place], [place]ycin Level Eurafq8341-46-35 11:29:00* Test Item Value Reference Range Interpretation Comments Vancomycin Level Trough (test code = 4092-3) 15.5 5.0-10.0 HH Results repeated and called to Amanda Cavanaugh RN at 1127 on 01/06/19 by Giselle Marcos min. Read back and verified.[facility] HospitalVanencompass healthycin Level Sbitli9760-50-62 11:29:00* Test Item Value Reference Range Interpretation Comments Vancomycin Level Trough (test code = 4092-3) 15.5 5.0-10.0 HH Results repeated and called to Amanda Cavanaugh RN at 1127 on 01/06/19 by Giselle Marcos min. Read back and verified.[facility] HospitalC-Reactive Mbifmqg6730-20-82 09:18:00* Test Item Value Reference Range Interpretation Comments C-Reactive Protein (test code = 1987-5) 101 0-10 H Please note reference interval changePerformed at: [address] [id number] Director: Arturo Walker MD, Phone: [phone] HospitalC-Reactive Protein 2019-01-06 09:18:00* Test Item Value Reference Range Interpretation Comments C-Reactive Protein (test code = 1987-) 101 0-10 H Please note reference interval changePerformed at: [address] [id number] Director: Arturo Walker MD, Phone: [phone] HospitalC-Reactive Protein 2019-01-06 09:18:00* Test Item Value Reference Range Interpretation Comments C-Reactive Protein (test code = 1987-5) 101 0-10 H Please note reference interval changePerformed at: [address] [id number] Director: Arturo Walker MD, Phone: [phone] HospitalC-Reactive Protein 2019-01-06 09:18:00* Test Item Value Reference Range Interpretation Comments C-Reactive Protein (test code = 1987-5) 101 0-10 H Please note reference interval changePerformed at: [address] [id number] Director: Arturo Walker MD, Phone: [phone] HospitalC-Reactive Protein 2019-01-06 09:18:00* Test Item Value Reference Range Interpretation Comments C-Reactive Protein (test code = 1987-5) 101 0-10 H Please note reference interval changePerformed at: [address] [id number] Director: Arturo Walker MD, Phone: [phone] HospitalC-Reactive Protein 2019-01-06 09:18:00* Test Item Value Reference Range Interpretation Comments C-Reactive Protein (test code = 1987-5) 101 0-10 H Please note reference interval changePerformed at: [address] [id number] Director: Arturo Walker MD, Phone: [phone] HospitalCHEST SINGLE (PORTABLE)2019-01-06 06:09:00 [place] [address] Patient Name: SIOBHAN BARBOSA MR #: [id number] : 1965 Age/Sex: 53/F Req #: [id number] Adm Physician: KIM DILL MD Ordered by: KIM DILL MD Report #: [id number] Location: ICU Room/Bed: ICU [facility] Procedure: [id number] DX /CHEST SINGLE (PORTABLE) Exam Date: 01/06/19 Exam Ti me: 0515 REPORT STATUS: Signed E XAMINATION: CHEST SINGLE (PORTABLE) INDICATION: Resp Failure 20190106 COMPARISON: 01/05/2019 FINDINGS: AP view TUBES and LINES: Interval extubation and removal of nasogastric tube. Stab le right IJ central line. LUNGS and pleura: [...] on 01/06/19611 COPY TO: KIM DILL MD Blood Culture 2019-01-06 02:37:00* Test Item Value Reference Range Interpretation Comments Blood Culture (test code = 24025819) NO GROWTH AFTER 72 HOURS [facility] HospitalArterial Blood iE4382-91-44 17:50:00* Test Item Value Reference Range Interpretation Comments Arterial Blood pH (test code = 2744-1) 7.46 7.31-7.41 H [facility] HospitalArterial Blood Partial Pressure CO2 2019-01-05 17:50:00* Test Item Value Reference Range Interpretation Comments Arterial Blood Partial Pressure CO2 (test code = 2019-02) 34 41-51 L [facility] HospitalArterial Blood Partial Pressure O2 2019-01-05 17:50:00* Test Item Value Reference Range Interpretation Comments Arterial Blood Partial Pressure O2 (test code = 2019-02) 147 80-105 H [facility] HospitalArterial Blood HXE22669-69-48 17:50:00* Test Item Value Reference Range Interpretation Comments Arterial Blood HCO3 (test code = 1960-4) 24 23-28 [facility] HospitalArterial Blood Base Zgunkv4339-75-61 17:50:00* Test Item Value Reference Range Interpretation Comments Arterial Blood Base Excess (test code = 1925-7) 0.0 -2-3 [facility] HospitalArterial Blood Oxygen Saturation 2019-01-05 17:50:00* Test Item Value Reference Range Interpretation Comments Arterial Blood Oxygen Saturation (test code = 2708-6) 99.0 95-98 H [facility] HospitalFiO22019-06-20 17:50:00* Test Item Value Reference Range Interpretation Comments FiO2 (test code = FiO2) 40 CPAP/PS PS 8, +5, 40%Total rate: 30[facility] Arterial Blood zW3337-15-24 17:50:00* Test Item Value Reference Range Interpretation Comments Arterial Blood pH (test code = 2744-1) 7.46 7.31-7.41 H [facility] HospitalArterial Blood Partial Pressure CO2 2019-01-05 17:50:00* Test Item Value Reference Range Interpretation Comments Arterial Blood Partial Pressure CO2 (test code = 2019-02) 34 41-51 L [facility] HospitalArterial Blood Partial Pressure O2 2019-01-05 17:50:00* Test Item Value Reference Range Interpretation Comments Arterial Blood Partial Pressure O2 (test code = 2019-8) 147 80-105 H [facility] HospitalArterial Blood XFF98518-24-20 17:50:00* Test Item Value Reference Range Interpretation Comments Arterial Blood HCO3 (test code = 1960-4) [facility] Jktoew4771-80-47 17:50:00* Test Item Value Reference Range Interpretation Comments Arterial Blood Base Excess (test code = 1925-7) 0.0 -2-3 [facility] O[facility] Saturation 2019-01-05 17:50:00* Test Item Value Reference Range Interpretation Comments Arterial Blood Oxygen Saturation (test code = 2708-6) 99.0 95-98 H [facility] 17:50:00* Test Item Value Reference Range Interpretation Comments FiO2 (test code = FiO2) 40 CPAP/PS PS 8, +5, 40%Total rate: 30[facility] zB0149-86-26 17:50:00* Test Item Value Reference Range Interpretation Comments Arterial Blood pH (test code = 2744-1) 7.46 7.31-7.41 H [facility] Partial Pressure CO2 2019-01-05 17:50:00* Test Item Value Reference Range Interpretation Comments Arterial Blood Partial Pressure CO2 (test code = 2018-) 34 41-51 L [facility] Pressure O2 2019-01-05 17:50:00* Test Item Value Reference Range Interpretation Comments Arterial Blood Partial Pressure O2 (test code = 2018-8) 147 80-105 H [facility] [id number] 17:50:00* Test Item Value Reference Range Interpretation Comments Arterial Blood HCO3 (test code = 1960-4) [facility] Edhkuj3538-83-97 17:50:00* Test Item Value Reference Range Interpretation Comments Arterial Blood Base Excess (test code = 1925-7) 0.0 -2-3 [facility] O[facility] Saturation 2019-01-05 17:50:00* Test Item Value Reference Range Interpretation Comments Arterial Blood Oxygen Saturation (test code = 2708-6) 99.0 95-98 H [facility] 17:50:00* Test Item Value Reference Range Interpretation Comments FiO2 (test code = FiO2) 40 CPAP/PS PS 8, +5, 40%Total rate: 30[facility] gS7692-95-32 17:50:00* Test Item Value Reference Range Interpretation Comments Arterial Blood pH (test code = 2744-1) 7.46 7.31-7.41 H [facility] Partial Pressure CO2 2019-01-05 17:50:00* Test Item Value Reference Range Interpretation Comments Arterial Blood Partial Pressure CO2 (test code = 2018-) 34 41-51 L [facility] Partial Pressure O2 2019-01-05 17:50:00* Test Item Value Reference Range Interpretation Comments Arterial Blood Partial Pressure O2 (test code = 2018-) 147 80-105 H [facility] HQN18430-18-00 17:50:00* Test Item Value Reference Range Interpretation Comments Arterial Blood HCO3 (test code = 1960-4) 24 23-28 [facility] Eydraw0486-68-90 17:50:00* Test Item Value Reference Range Interpretation Comments Arterial Blood Base Excess (test code = 1925-7) 0.0 -2-3 [facility] Oxygen Saturation 2019-01-05 17:50:00* Test Item Value Reference Range Interpretation Comments Arterial Blood Oxygen Saturation (test code = 2708-6) 99.0 95-98 H [facility] 17:50:00* Test Item Value Reference Range Interpretation Comments FiO2 (test code = FiO2) 40 CPAP/PS PS 8, +5, 40%Total rate: 30[facility] [id number] 17:50:00* Test Item Value Reference Range Interpretation Comments Arterial Blood pH (test code = 2744-1) 7.46 7.31-7.41 H [facility] Partial Pressure CO2 2019-01-05 17:50:00* Test Item Value Reference Range Interpretation Comments Arterial Blood Partial Pressure CO2 (test code = 2018-8) 34 41-51 L [facility] Partial Pressure O2 2019-01-05 17:50:00* Test Item Value Reference Range Interpretation Comments Arterial Blood Partial Pressure O2 (test code = 2018-8) 147 80-105 H [facility] RXH00001-69-01 17:50:00* Test Item Value Reference Range Interpretation Comments Arterial Blood HCO3 (test code = 1960-4) 24 [facility] Bulceu3801-80-59 17:50:00* Test Item Value Reference Range Interpretation Comments Arterial Blood Base Excess (test code = 1925-7) 0.0 -2-3 [facility] Oxygen Saturation 2019-01-05 17:50:00* Test Item Value Reference Range Interpretation Comments Arterial Blood Oxygen Saturation (test code = 2708-6) 99.0 95-98 H [facility] 17:50:00* Test Item Value Reference Range Interpretation Comments FiO2 (test code = FiO2) 40 CPAP/PS PS 8, +5, 40%Total rate: 30[facility] [id number] 17:50:00* Test Item Value Reference Range Interpretation Comments Arterial Blood pH (test code = 2744-1) 7.46 7.31-7.41 H [facility] Partial Pressure CO2 2019-01-05 17:50:00* Test Item Value Reference Range Interpretation Comments Arterial Blood Partial Pressure CO2 (test code = 2018-8) 34 41-51 L [facility] Partial Pressure O2 2019-01-05 17:50:00* Test Item Value Reference Range Interpretation Comments Arterial Blood Partial Pressure O2 (test code = 2018-8) 147 80-105 H [facility] GID88326-08-96 17:50:00* Test Item Value Reference Range Interpretation Comments Arterial Blood HCO3 (test code = 1960-4) 24 23- [facility] Tjvvtx2469-16-82 17:50:00* Test Item Value Reference Range Interpretation Comments Arterial Blood Base Excess (test code = 1925-7) 0.0 -2-3 [facility] Oxygen Saturation 2019-01-05 17:50:00* Test Item Value Reference Range Interpretation Comments Arterial Blood Oxygen Saturation (test code = 2708-6) 99.0 95-98 H [facility] 17:50:00* Test Item Value Reference Range Interpretation Comments FiO2 (test code = FiO2) 40 CPAP/PS PS 8, +5, 40%Total rate: 30[facility]Body Fluid Mytmpavefvy3311-15-55 17:44:00* Test Item Value Reference Range Interpretation Comments Body Fluid Neutrophils (test code = 64569-2) [address] [facility] [place] [place] Thkskkcafel8946-60-28 17:44:00 * Test Item Value Reference Range Interpretation Comments Body Fluid Lymphocytes (test code = 53893748) 77 [facility] Dwtgchsee8469-49-98 17:44:00* Test Item Value Reference Range Interpretation Comments Body Fluid Monocytes (test code = 86367-2) 7 [facility] Fluid Total Cells Vliwmbt9522-35-47 17:44:00* Test Item Value Reference Range Interpretation Comments Body Fluid Total Cells Counted (test code = 92035-1) 100 [facility] Fluid Sjcphzhsjca5875-78-39 17:44:00 * Test Item Value Reference Range Interpretation Comments Body Fluid Neutrophils (test code = 54481-4) 16 [facility] Mpqulnyqceg0674-34-03 17:44:00 * Test Item Value Reference Range Interpretation Comments Body Fluid Lymphocytes (test code = 25427683) 77 [facility] Fluid Dwjoqpjgw8749-02-77 17:44:00* Test Item Value Reference Range Interpretation Comments Body Fluid Monocytes (test code = 21367-0) 7 [facility] Fluid Total Cells Efaltya0470-52-11 17:44:00* Test Item Value Reference Range Interpretation Comments Body Fluid Total Cells Counted (test code = 44953-9) 100 [facility] Xorzhrdfjfu7536-63-26 17:44:00 * Test Item Value Reference Range Interpretation Comments Body Fluid Neutrophils (test code = 87379-5) 16 [facility] Cgbtsyrecgd2713-13-73 17:44:00 * Test Item Value Reference Range Interpretation Comments Body Fluid Lymphocytes (test code = 16742307) 77 [facility] Tzrhbqkqs2769-99-33 17:44:00* Test Item Value Reference Range Interpretation Comments Body Fluid Monocytes (test code = 04799-4) 7 [facility] Fluid Total Cells Lnqoxjo2149-41-88 17:44:00* Test Item Value Reference Range Interpretation Comments Body Fluid Total Cells Counted (test code = 20045-0) [address] [facility] [place] [place] Bzzycpayhmk8542-49-77 17:44:00 * Test Item Value Reference Range Interpretation Comments Body Fluid Neutrophils (test code = 21994-5) 16 [facility] Dzwwzoxnezw5217-03-49 17:44:00 * Test Item Value Reference Range Interpretation Comments Body Fluid Lymphocytes (test code = 55337072) 77 [facility] Fluid Lgxargvbb8175-95-88 17:44:00* Test Item Value Reference Range Interpretation Comments Body Fluid Monocytes (test code = 98511-7) 7 [facility] Fluid Total Cells Ixctgtj9386-72-47 17:44:00* Test Item Value Reference Range Interpretation Comments Body Fluid Total Cells Counted (test code = 34945-2) 100 [facility] Fluid Pfyvhswbtge0430-57-71 17:44:00 * Test Item Value Reference Range Interpretation Comments Body Fluid Neutrophils (test code = 93397-6) 16 [facility] Fluid Jcopsylezvy1486-66-71 17:44:00 * Test Item Value Reference Range Interpretation Comments Body Fluid Lymphocytes (test code = 78252327) 77 [facility] Fluid Yghcufkzg4915-17-87 17:44:00* Test Item Value Reference Range Interpretation Comments Body Fluid Monocytes (test code = 78936-2) 7 [facility] Total Cells Ubggmvj5110-02-89 17:44:00* Test Item Value Reference Range Interpretation Comments Body Fluid Total Cells Counted (test code = 60633-3) 100 [facility] Tnpbudkzjby1467-15-80 17:44:00 * Test Item Value Reference Range Interpretation Comments Body Fluid Neutrophils (test code = 55894-1) 16 [facility] Ztdcxjregau1338-52-18 17:44:00 * Test Item Value Reference Range Interpretation Comments Body Fluid Lymphocytes (test code = 29168107) 77 [facility] Wtlcagqnw8704-54-19 17:44:00* Test Item Value Reference Range Interpretation Comments Body Fluid Monocytes (test code = 67993-7) 7 [facility] Fluid Total Cells Txzlwuy8289-03-85 17:44:00* Test Item Value Reference Range Interpretation Comments Body Fluid Total Cells Counted (test code = 79140-3) 100 [facility] LFB0673-84-23 17:12:00* Test Item Value Reference Range Interpretation Comments Body Fluid WBC (test code = 6743-9) 48 [facility] QNR0059-18-09 17:12:00* Test Item Value Reference Range Interpretation Comments Body Fluid RBC (test code = 6741-3) 228 [facility] Fluid OGS8265-08-56 17:12:00* Test Item Value Reference Range Interpretation Comments Body Fluid WBC (test code = 6743-9) 48 [facility] JFH7253-69-68 17:12:00* Test Item Value Reference Range Interpretation Comments Body Fluid RBC (test code = 6741-3) 228 [facility] ABL6554-66-67 17:12:00* Test Item Value Reference Range Interpretation Comments Body Fluid WBC (test code = 6743-9) 48 [facility] Fluid GTI9401-21-08 17:12:00* Test Item Value Reference Range Interpretation Comments Body Fluid RBC (test code = 6741-3) 228 [facility] HMZ5979-28-25 17:12:00* Test Item Value Reference Range Interpretation Comments Body Fluid WBC (test code = 6743-9) 48 [facility] EIE0896-21-82 17:12:00* Test Item Value Reference Range Interpretation Comments Body Fluid RBC (test code = 6741-3) 228 [facility] UTC7718-14-46 17:12:00* Test Item Value Reference Range Interpretation Comments Body Fluid WBC (test code = 6743-9) 48 [facility] BMY4096-87-60 17:12:00* Test Item Value Reference Range Interpretation Comments Body Fluid RBC (test code = 6741-3) 228 [facility] Fluid GVQ7906-44-71 17:12:00* Test Item Value Reference Range Interpretation Comments Body Fluid WBC (test code = 6743-9) 48 [facility] Fluid FVH8689-67-06 17:12:00* Test Item Value Reference Range Interpretation Comments Body Fluid RBC (test code = 6741-3) 228 [facility] Total Vaiehnr4301-50-19 17:11:00* Test Item Value Reference Range Interpretation Comments Body Fluid Total Protein (test code = 2881-1) 3.0 [facility] Lactate Dehydrogenase 2019-01-05 17:11:00* Test Item Value Reference Range Interpretation Comments Body Fluid Lactate Dehydrogenase (test code = 034456809) 139 No reference range has been established for this specimen type.[facility] Total Iceqsuj7167-84-50 17:11:00* Test Item Value Reference Range Interpretation Comments Body Fluid Total Protein (test code = 2881-1) 3.0 [facility] Lactate Dehydrogenase 2019-01-05 17:11:00* Test Item Value Reference Range Interpretation Comments Body Fluid Lactate Dehydrogenase (test code = 740306566) 139 No reference range has been established for this specimen type.[facility] Total Aukdelh9542-53-05 17:11:00* Test Item Value Reference Range Interpretation Comments Body Fluid Total Protein (test code = 2881-1) 3.0 [facility] Lactate Dehydrogenase 2019-01-05 17:11:00* Test Item Value Reference Range Interpretation Comments Body Fluid Lactate Dehydrogenase (test code = 918027310) 139 No reference range has been established for this specimen type.[facility] Total Cnttudr9272-96-06 17:11:00* Test Item Value Reference Range Interpretation Comments Body Fluid Total Protein (test code = 2881-1) 3.0 [facility] Lactate Dehydrogenase 2019-01-05 17:11:00* Test Item Value Reference Range Interpretation Comments Body Fluid Lactate Dehydrogenase (test code = 400870209) 139 No reference range has been established for this specimen type.[facility] Total Snbelpq1301-48-11 17:11:00* Test Item Value Reference Range Interpretation Comments Body Fluid Total Protein (test code = 2881-1) 3.0 [facility] Lactate Dehydrogenase 2019-01-05 17:11:00* Test Item Value Reference Range Interpretation Comments Body Fluid Lactate Dehydrogenase (test code = 631636436) 139 No reference range has been established for this specimen type.[facility] Total Durgfgx6405-56-69 17:11:00* Test Item Value Reference Range Interpretation Comments Body Fluid Total Protein (test code = 2881-1) 3.0 [facility] Lactate Dehydrogenase 2019-01-05 17:11:00* Test Item Value Reference Range Interpretation Comments Body Fluid Lactate Dehydrogenase (test code = 093007140) 139 No reference range has been established for this specimen type.[facility] HospitalTHORACENTESIS/US DWAXIY7283-03-50 15:56:00 [place] [address] Patient Name: SIOBHAN BARBOSA MR #: [id number] : 1965 Age/Sex: 53/F Req #: [id number] Adm Physician: KIM DILL MD Ordered by: KIM DILL MD Report #: [id number] Location: ICU Room/Bed: ICU [facility] Procedure: [id number] US /THORACENTESIS/US GUIDED Exam Date: 01/05/19 Exam Ti me: 1325 REPORT STATUS: Signed D ate and Time: 01/05/2019 Procedure: Ultrasound-guided left thoracentesis clamp operator: Dr. Briceno Pre-operative diagnosis: Left pleural effu kayla Post-operative diagnosis: Left pleural effusion Conscious Sedation: [...] under continuous son ographic guidance a 5 [place] needle catheter was advanced into the left p leural space. The catheter was advanced off the needle and connected to vacuum bottle with evacuation of 700 cc straw-colored fluid. The catheter was remove d and a sterile dressing was applied. The patient tolerated the procedure well without immediate complication. FINDINGS: Small left pleural effus ion. IMPRESSION: Successful ultrasound-guided left thoracentesis wi th evacuation of 700 cc straw-colored fluid. Signed by: Dr. Tomy Briceno M.D. on 01/05/2019 3:58 PM Dictated By: TOMY BRICENO MD [id number] Transcribed By: JENNIFER on 0057 COPY TO: KIM DILL MD Erythrocyte Sedimentation Rate 2019-01-05 15:37:00* Test Item Value Reference Range Interpretation Comments Erythrocyte Sedimentation Rate (test code = 4537-7) 51 0- 20 H [facility]iment[facility] Vtrw1289-17-86 15:37:00* Test Item Value Reference Range Interpretation Comments Erythrocyte Sedimentation Rate (test code = 4537-7) 51 0- 20 H [facility] Sedimentation Jwnb4587-96-14 15:37:00* Test Item Value Reference Range Interpretation Comments Erythrocyte Sedimentation Rate (test code = 4537-7) 51 0- 20 H [facility]ry[facility] Sedimentation Owji6895-20-14 15:37:00* Test Item Value Reference Range Interpretation Comments Erythrocyte Sedimentation Rate (test code = 4537-7) 51 0- 20 H [facility] Sedimentation Abtq2040-97-22 15:37:00* Test Item Value Reference Range Interpretation Comments Erythrocyte Sedimentation Rate (test code = 4537-7) 51 0- 20 H [facility] Sedimentation Fsfk6438-33-21 15:37:00* Test Item Value Reference Range Interpretation Comments Erythrocyte Sedimentation Rate (test code = 4537-7) 51 0- 20 H [facility] SINGLE (PORTABLE)2019-01-05 15:30:00 [facility] [address] [place] [address] Patient Name: SIOBHAN BARBOSA MR #: [id number] : 1965 Age/Sex: 53/F Req #: [id number] Adm Physician: KIM DILL MD Ordered by: TOMY BRICENO MD Report #: [id number] Location: ICU Room/Bed: ICU [facility] Procedure: [id number] DX/CHEST SINGLE (PORTABLE) Exam Date: 01/05/19 Exam [...] ronically Signed By: TOMY BRICENO MD on 01/05/19 1532 Transcribed By: JENNIFER on 01/05/19 1532 COPY TO: TOMY BRICENO MD Body Fluid Type 2019-01-05 14:50:00* Test Item Value Reference Range Interpretation Comments Body Fluid Type (test code = 22438-0) PLEURAL [facility] Benfs1595-82-91 14:50:00* Test Item Value Reference Range Interpretation Comments Body Fluid Color (test code = 6824-7) STRAW [facility] Luihkstppq7660-06-30 14:50:00 * Test Item Value Reference Range Interpretation Comments Body Fluid Appearance (test code = 9335-1) TURBID [facility] Xmtc1793-24-94 14:50:00* Test Item Value Reference Range Interpretation Comments Body Fluid Type (test code = 52768-1) PLEURAL [facility] Fikcq3717-78-05 14:50:00* Test Item Value Reference Range Interpretation Comments Body Fluid Color (test code = 6824-7) STRAW [facility] Insgkdopke7698-76-73 14:50:00 * Test Item Value Reference Range Interpretation Comments Body Fluid Appearance (test code = 9335-1) TURBID [facility] Pkzr7267-39-76 14:50:00* Test Item Value Reference Range Interpretation Comments Body Fluid Type (test code = 26041-8) PLEURAL [facility] Fl[facility] Agjfd3872-45-87 14:50:00* Test Item Value Reference Range Interpretation Comments Body Fluid Color (test code = 6824-7) STRAW [facility] Fluid Jdxmtxzuep9343-10-11 14:50:00 * Test Item Value Reference Range Interpretation Comments Body Fluid Appearance (test code = 9335-1) TURBID [facility] Ahge1126-89-29 14:50:00* Test Item Value Reference Range Interpretation Comments Body Fluid Type (test code = 92410-6) PLEURAL [facility] Fl[facility] Sawtp3240-23-61 14:50:00* Test Item Value Reference Range Interpretation Comments Body Fluid Color (test code = 6824-7) [facility] Fluid Atbpcyjyov5380-20-76 14:50:00 * Test Item Value Reference Range Interpretation Comments Body Fluid Appearance (test code = 9335-1) TURBID [facility] Fluid Zwnc5350-08-30 14:50:00* Test Item Value Reference Range Interpretation Comments Body Fluid Type (test code = 54776-8) PLEURAL [facility] Lvqei8866-55-89 14:50:00* Test Item Value Reference Range Interpretation Comments Body Fluid Color (test code = 6824-7) STRAW [facility] Fl[facility] Seplrzcxgn3450-59-15 14:50:00 * Test Item Value Reference Range Interpretation Comments Body Fluid Appearance (test code = 9335-1) TURBID [facility] Gvwk5016-03-45 14:50:00* Test Item Value Reference Range Interpretation Comments Body Fluid Type (test code = 91069-1) PLEURAL [facility] Hiqsn0060-75-21 14:50:00* Test Item Value Reference Range Interpretation Comments Body Fluid Color (test code = 6824-7) STRAW [facility] Doknmajopq8177-15-96 14:50:00 * Test Item Value Reference Range Interpretation Comments Body Fluid Appearance (test code = 9335-1) TURBID [facility]2019-06-20 12:34:00* Test Item Value Reference Range Interpretation Comments Wound Culture (test code = 6462-6) Organism: STAPHYLOCOCCUS AUREUS- MRSA [facility]2019-06-20 12:34:00* Test Item Value Reference Range Interpretation Comments Wound Culture (test code = 6462-6) Organism: STAPHYLOCOCCUS AUREUS- MRSA [facility]2019-06-20 12:34:00* Test Item Value Reference Range Interpretation Comments Wound Culture (test code = 6462-6) Organism: STAPHYLOCOCCUS AUREUS- MRSA [facility]2019-06-20 12:34:00* Test Item Value Reference Range Interpretation Comments Wound Culture (test code = 6462-6) No Result Data Provided [facility]2019-06-20 12:34:00* Test Item Value Reference Range Interpretation Comments Wound Culture (test code = 6462-6) No Result Data Provided [facility]2019-06-20 12:34:00* Test Item Value Reference Range Interpretation Comments Wound Culture (test code = 6462-6) No Result Data Provided [facility]2019-06-20 07:06:00* Test Item Value Reference Range Interpretation Comments Urine Culture (test code = 630-4) Organism: ENTEROCOCCUS FAECIUM-VR E [facility]2019-06-20 07:06:00* Test Item Value Reference Range Interpretation Comments Urine Culture (test code = 630-4) Organism: ENTEROCOCCUS FAECIUM-VR E [facility]2019-06-20 07:06:00* Test Item Value Reference Range Interpretation Comments Urine Culture (test code = 630-4) Organism: ENTEROCOCCUS FAECIUM-VR E [facility]2019-06-20 07:06:00* Test Item Value Reference Range Interpretation Comments Urine Culture (test code = 630-4) No Result Data Provided [facility]2019-06-20 07:06:00* Test Item Value Reference Range Interpretation Comments Urine Culture (test code = 630-4) No Result Data Provided [facility] Gffodyr3926-59-23 07:06:00* Test Item Value Reference Range Interpretation Comments Urine Culture (test code = 630-4) No Result Data Provided [facility]2019-01-05 06:05:00 [facility] [address] [place] [address] Patient Name: SIOBHAN BARBOSA MR #: [id number] : 1965 Age/Sex: 53/F Req #: [id number] Adm Physician: KIM DILL MD Ordered by: KIM DILL MD Report #: [id number] Location: ICU Room/Bed: ICU [facility] Procedure: [id number] DX /CHEST SINGLE (PORTABLE) Exam Date: Exam [...] COPY TO: KIM DILL MD CT ABDOMEN/PELVIS MR4686-14-14 13:13:00 [place] [address] Patient Name: SIOBHAN BARBOSA MR #: [id number] : 1965 Age/Sex: 53/F Req #: [id number] Adm Physician: KIM DILL MD Ordered by: KIM DILL MD Report #: [id number] Location: ICU Room/Bed: ICU [facility] Procedure: [id number] CT /CT ABDOMEN/PELVIS WO Exam Date: 01/04/19 Exam Time: 1230 REPORT STATUS: Signed EXAM : CT Abdomen and Pelvis WITHOUT contrast INDICATION: Abdominal wal l hematoma [id number] COMPARISON: CT abdomen/pelvis, 01/03/2019 TECH NIQUE: Abdomen [...] MD 51 Transcribed By: JENNIFER on 01/04/191451 ENVIRONMENTAL INTERN Y TO: KIM DILL MD Magnesium Wjart5464-00-61 09:31:00* Test Item Value Reference Range Interpretation Comments Magnesium Level (test code = 22163-2) 1.7 1.3-2.1 [facility] Utfqe9051-25-98 09:31:00* Test Item Value Reference Range Interpretation Comments Magnesium Level (test code = 80535-9) 1.7 1.3-2.1 [facility] Fjpbb0496-81-00 09:31:00* Test Item Value Reference Range Interpretation Comments Magnesium Level (test code = 02939-2) 1.7 1.3-2.1 [facility] Xbczb7888-30-52 09:31:00* Test Item Value Reference Range Interpretation Comments Magnesium Level (test code = 00673-8) 1.7 1.3-2.1 [facility] XRAY LINE GDFRLQXCG5148-96-85 08:00:00 [place] [address] Patient Name: SIOBHAN BARBOSA MR #: [id number] : 1965 Age/Sex: 53/F Req #: [id number] Adm Physician: KIM DILL MD Ordered by: KIM DILL MD Report #: [id number] Location: ICU Room/Bed: [place] [address] Procedure: [id number] DX /CHEST XRAY LINE PLACEMENT Exam Date: 01/04/19 Exam Time: 724 REPORT STATUS: Signed EXAM: CHEST XRAY LINE [...] AM Dictated B y: ANUP RAO DO 2 Transcribed By: JENNIFER on 01/04/19802 COPY TO: KIM DILL MD Platelet Aoqrebbj6119-49-16 07:22:00* Test Item Value Reference Range Interpretation Comments Platelet Estimate (test code = 60637-9) [facility]LY [facility]CRE[facility]ED [facility] Kjjzxyl1622-04-57 07:22:00* Test Item Value Reference Range Interpretation Comments Platelet Morphology Comment (test code = 76163-1) NORMAL [facility]ochrom[facility] 07:22:00* Test Item Value Reference Range Interpretation Comments Hypochromasia (test code = 728-6) SLIGHT [facility] HospitalAnisocytosis2019-[facility] 07:22:00* Test Item Value Reference Range Interpretation Comments Anisocytosis (test code = 702-1) SLIGHT [facility] HospitalRed Cell Morphology Ltaojcr1914-77-62 07:22:00* Test Item Value Reference Range Interpretation Comments Red Cell Morphology Comment (test code = 6742-1) ABNORMAL [facility] HospitalPlatelet Nhiqpohv4570-94-69 07:22:00* Test Item Value Reference Range Interpretation Comments Platelet Estimate (test code = 25317-0) MARKEDLY DECREASED [facility] HospitalPlatelet Morphology Yxxjzqa1085-24-56 07:22:00* Test Item Value Reference Range Interpretation Comments Platelet Morphology Comment (test code = 06173-3) NORMAL [facility] 07:22:00* Test Item Value Reference Range Interpretation Comments Hypochromasia (test code = 728-6) SLIGHT [facility] HospitalAnisocytosis2019-[facility]-19 07:22:00* Test Item Value Reference Range Interpretation Comments Anisocytosis (test code = 702-1) SLIGHT [facility] HospitalRed Cell Morphology Ptcrnew8085-21-98 07:22:00* Test Item Value Reference Range Interpretation Comments Red Cell Morphology Comment (test code = 6742-1) ABNORMAL [facility] HospitalPlatelet Dvgyakww6268-55-45 07:22:00* Test Item Value Reference Range Interpretation Comments Platelet Estimate (test code = 09062-6) MARKEDLY DECREASED [facility] HospitalPlatelet Morphology Dnacyzr0760-88-40 07:22:00* Test Item Value Reference Range Interpretation Comments Platelet Morphology Comment (test code = 47942-8) [facility] 07:22:00* Test Item Value Reference Range Interpretation Comments Hypochromasia (test code = 728-6) SLIGHT [facility] HospitalAnisocytosis2019-06-19 07:22:00* Test Item Value Reference Range Interpretation Comments Anisocytosis (test code = 702-1) SLIGHT [facility] HospitalRed Cell Morphology Hicyycn9657-23-97 07:22:00* Test Item Value Reference Range Interpretation Comments Red Cell Morphology Comment (test code = 6742-1) ABNORMAL [facility] HospitalPlatelet Uvfykjuh4077-81-74 07:22:00* Test Item Value Reference Range Interpretation Comments Platelet Estimate (test code = 83747-3) MARKEDLY DECREASED [facility] HospitalPlatelet Morphology Kybmnuw7262-64-30 07:22:00* Test Item Value Reference Range Interpretation Comments Platelet Morphology Comment (test code = 52529-7) NORMAL [facility] HospitalHypochromasia2019-06-19 07:22:00* Test Item Value Reference Range Interpretation Comments Hypochromasia (test code = 728-6) SLIGHT [facility] HospitalAnisocytosis2019-06-19 07:22:00* Test Item Value Reference Range Interpretation Comments Anisocytosis (test code = 702-1) SLIGHT [facility] HospitalRed Cell Morphology Vaglwzo9128-83-30 07:22:00* Test Item Value Reference Range Interpretation Comments Red Cell Morphology Comment (test code = 6742-1) ABNORMAL [facility] HospitalPlatelet Morphology Bzigkyc1075-80-76 07:22:00* Test Item Value Reference Range Interpretation Comments Platelet Morphology Comment (test code = 44929-6) NORMAL [facility] HospitalHypochromasia2019-06-19 07:22:00* Test Item Value Reference Range Interpretation Comments Hypochromasia (test code = 728-6) [facility]IGHT [facility] 07:22:00* Test Item Value Reference Range Interpretation Comments Anisocytosis (test code = 702-1) SLIGHT [facility] HospitalRed Cell Morphology Lemfykl9164-42-37 07:22:00* Test Item Value Reference Range Interpretation Comments Red Cell Morphology Comment (test code = 6742-1) ABNORMAL [facility] HospitalPlatelet Morphology Inqryxk1112-65-94 07:22:00* Test Item Value Reference Range Interpretation Comments Platelet Morphology Comment (test code = 48416-3) NORMAL [facility] HospitalHypochromasia2019-06-19 07:22:00* Test Item Value Reference Range Interpretation Comments Hypochromasia (test code = 728-6) SLIGHT [facility] HospitalAnisocytosis2019-06-19 07:22:00* Test Item Value Reference Range Interpretation Comments Anisocytosis (test code = 702-1) SLIGHT [facility] HospitalRed Cell Morphology Nzqlzky4183-69-07 07:22:00* Test Item Value Reference Range Interpretation Comments Red Cell Morphology Comment (test code = 6742-1) ABNORMAL [facility] HospitalCHEST SINGLE (PORTABLE)2019-01-04 06:41:00 [place] [address] Patient Name: SIOBHAN BARBOSA MR #: [id number] : 1965 Age/Sex: 53/F Req #: [id number] Adm Physician: KIM DILL MD Ordered by: KIM DILL MD Report #: [id number] Location: ICU Room/Bed: [place] [address] Procedure: [id number] DX /CHEST SINGLE (PORTABLE) Exam Date: 01/04/19 Exam Ti me: 0540 REPORT STATUS: Signed E XAMINATION: CHEST SINGLE (PORTABLE) INDICATION: Resp Failure [id number] COMPARISON: 01/03/2019 FINDINGS: AP view TUBES and LINES: Stable endotracheal tube. Nasogastric tube is visualized, extending below the inferior margin of the film. LUNGS and pleura: Lung s are well inflated. Unchanged bilateral airspace opacities [...] on 01/04/19642 COPY TO: KIM DILL MD Creatine Kinase NL3087-23-76 19:38:00* Test Item Value Reference Range Interpretation Comments Creatine Kinase MB (test code = 20013-7) 4.10 0-5.0 [place] 39848019-06-18 19:38:00* Test Item Value Reference Range Interpretation Comments Troponin I (test code = WDW4535) 0.409 0-0.300 H [facility] HospitalCreatine Kinase LC7965-36-41 19:38:00* Test Item Value Reference Range Interpretation Comments Creatine Kinase MB (test code = 96175-6) 4.10 0-5.0 [place] 39848019-06-18 19:38:00* Test Item Value Reference Range Interpretation Comments Troponin I (test code = KHP3975) 0.409 0-0.300 H [facility] HospitalCreatine Kinase XW5959-15-71 19:38:00* Test Item Value Reference Range Interpretation Comments Creatine Kinase MB (test code = 08127-9) 4.10 0-5.0 [place] 39848019-06-18 19:38:00* Test Item Value Reference Range Interpretation Comments Troponin I (test code = VQG8076) 0.409 0-0.300 H [facility] HospitalCreatine Kinase ZU3723-77-85 19:38:00* Test Item Value Reference Range Interpretation Comments Creatine Kinase MB (test code = 01493-2) 4.10 0-5.0 [facility] Q6659-36-59 19:38:00* Test Item Value Reference Range Interpretation Comments Troponin I (test code = NTQ5866) 0.409 0-0.300 H [facility] HospitalCreatine Kinase IB0790-63-30 19:38:00* Test Item Value Reference Range Interpretation Comments Creatine Kinase MB (test code = 70079-0) 4.10 0-5.0 [facility] I4852-59-75 19:38:00* Test Item Value Reference Range Interpretation Comments Troponin I (test code = SVM7078) 0.409 0-0.300 H [facility] HospitalCreatine Qppsfx4230-75-64 19:33:00* Test Item Value Reference Range Interpretation Comments Creatine Kinase (test code = 2157-6) 8 29-168 L [facility] HospitalCreatine Gggqsh3608-90-36 19:33:00* Test Item Value Reference Range Interpretation Comments Creatine Kinase (test code = 2157-6) 8 29-168 L [facility] HospitalCreatine Fpckxb0679-82-82 19:33:00* Test Item Value Reference Range Interpretation Comments Creatine Kinase (test code = 2157-6) 8 29-168 L [facility] HospitalCreatine Jhlvpv6482-87-06 19:33:00* Test Item Value Reference Range Interpretation Comments Creatine Kinase (test code = 2157-6) 8 29-168 L [facility] HospitalCreatine Nmfbjp9747-31-52 19:33:00* Test Item Value Reference Range Interpretation Comments Creatine Kinase (test code = 2157-6) 8 29-168 L [facility] HospitalLactic Acid Iaskd2750-31-07 09:37:00* Test Item Value Reference Range Interpretation Comments Lactic Acid Level (test code = Lactic Acid Level) 11.4 4.5- 19.8 [facility] HospitalLactic Acid Dmwks5103-97-47 09:37:00* Test Item Value Reference Range Interpretation Comments Lactic Acid Level (test code = Lactic Acid Level) 11.4 4.5- 19.8 [facility] HospitalCT ABDOMEN/PELVIS XN6243-93-40 04:52:00 [facility] [address] [place] [address] Patient Name: SIOBHAN BARBOSA MR #: [id number] : [birth year] Age/Sex: 53/F Req #: [id number] Adm Physician: Ordered by: BERENICE HEARN MD Report #: [id number] Location: ER Room/Bed: Procedure: 8 CT/CT ABDOMEN/PELVIS WO Exam Date: 01/03/19 E xam Time: 409 REPORT STATUS: Obi d EXAM: CT Abdomen and Pelvis WITHOUT contrast INDICATION: ABDOM EN DISTENDED [id number] Y COMPARISON: Abdominal x-ray and ultraso und dated 12/07/2018 TECHNIQUE: Abdomen and pelvis [place] [facility] [place] from the lung base [...] Suprapubic Gibson catheter. LOW ER THORAX: Bilateral hemhb-ek-obvelawh size pleural effusions with adjacent c onsolidations. [...] on 01/03/19520 COPY TO: BERENICE FRANCISCO MD B-Type Natriuretic Zzlvszq3232-54-69 03:31:00* Test Item Value Reference Range Interpretation Comments B-Type Natriuretic Peptide (test code = 11976-0) 1412.9 0-100 H [facility] HospitalB-Type Natriuretic Pjqzcic1451-75-73 03:31:00* Test Item Value Reference Range Interpretation Comments B-Type Natriuretic Peptide (test code = 17171-4) 1412.9 0-100 H [facility] HospitalB-Type Natriuretic Xuygift5231-61-72 03:31:00* Test Item Value Reference Range Interpretation Comments B-Type Natriuretic Peptide (test code = 20480-2) 1412.9 0-100 H [facility] HospitalB-Type Natriuretic Vjrfzxf9400-35-94 03:31:00* Test Item Value Reference Range Interpretation Comments B-Type Natriuretic Peptide (test code = 75917-9) 1412.9 0-100 H [facility] HospitalB-Type Natriuretic Brhydye0071-09-70 03:31:00* Test Item Value Reference Range Interpretation Comments B-Type Natriuretic Peptide (test code = 93191-8) 1412.9 0-100 H [facility] HospitalCHEST SINGLE (NOT PORTABLE)2019-01-03 03:10:00 [place] [address] Patient Name: SIOBHAN BARBOSA MR #: [id number] : 1965 Age/Sex: 53/F Req #: [id number] Adm Physician: Ordered by: BERENICE HEARN MD Report #: [id number] Location: ER Room/Bed: Procedure: [id number] DX/CHEST SINGLE (NOT PORTABLE) Exam Date: 01/03/19 Exam Time: 242 REPORT STATUS : Signed EXAMINATION: CHEST SINGLE (NOT PORTABLE) INDICATION: SEPSIS 20190103 Y COMPARISON: None FINDINGS: AP view TUBES and LINES: Endotracheal tube in place with tip approximat negin 2.3 cm above dave. LUNGS: Lungs are well inflated. Bilateral mid to lower lung field opacification, left greater than right. Pulmonary vascul ar congestion. PLEURA: No visible pneumothorax. HEART AND MEDIASTINUM : The cardiac silhouette is partially obscured, however [...] MD 2 Transcribed By: JENNIFER on 01/03/19312 ENVIRONMENTAL INTERN Y TO: BERENICE HEARN MD Urine Adsnr3267-97-09 03:05:00* Test Item Value Reference Range Interpretation Comments Urine Color (test code = 5778-6) STRAW YELLOW [facility] HospitalUrine Niasbrw9592-18-92 03:05:00* Test Item Value Reference Range Interpretation Comments Urine Clarity (test code = 55942-7) CLOUDY CLEAR H [facility] HospitalUrine Specific Knwaabx1361-41-71 03:05:00 * Test Item Value Reference Range Interpretation Comments Urine Specific [place] (test code = 5811-5) 1.015 1.010-1.02 5 [facility] HospitalUrine zK7062-87-49 03:05:00* Test Item Value Reference Range Interpretation Comments Urine pH (test code = 02444-1) 6.5 5-7 [facility] HospitalUrine Leukocyte Dfhlxloy8312-70-69 03:05:00* Test Item Value Reference Range Interpretation Comments Urine Leukocyte Esterase (test code = 82018-3) LARGE NEGATIV E [facility] HospitalUrine Crvhbdb2301-40-12 03:05:00* Test Item Value Reference Range Interpretation Comments Urine Nitrite (test code = 36686-0) NEGATIVE NEGATIVE [facility] HospitalUrine Avodpnw1671-98-47 03:05:00* Test Item Value Reference Range Interpretation Comments Urine Protein (test code = 78703-8) 2+ NEGATIVE H [facility] HospitalUrine Glucose (UA)2019-01-03 03:05:00* Test Item Value Reference Range Interpretation Comments Urine Glucose (UA) (test code = 01824-6) NEGATIVE NEGATIVE [facility] HospitalUrine Tbquisz6571-60-97 03:05:00* Test Item Value Reference Range Interpretation Comments Urine Ketones (test code = 05122-9) NEGATIVE NEGATIVE [facility] HospitalUrine Bbqedaolqmbo1833-19-51 03:05:00* Test Item Value Reference Range Interpretation Comments Urine Urobilinogen (test code = 63599-5) 0.2 0.2-1 [facility] HospitalU[facility] Wtticeeys2882-17-79 03:05:00* Test Item Value Reference Range Interpretation Comments Urine Bilirubin (test code = 1977-8) NEGATIVE NEGATIVE [facility] HospitalU[facility] Xieew9682-96-19 03:05:00* Test Item Value Reference Range Interpretation Comments Urine Blood (test code = 93627-7) MODERATE NEGATIVE [facility] HospitalU[facility] Mfodh5450-75-82 03:05:00* Test Item Value Reference Range Interpretation Comments Urine Color (test code = 5778-6) STRAW YELLOW [facility] HospitalUrine Xhurpdb1978-65-13 03:05:00* Test Item Value Reference Range Interpretation Comments Urine Clarity (test code = 26291-9) CLOUDY CLEAR H [facility] HospitalUrine Specific Sxzagix6209-60-32 03:05:00 * Test Item Value Reference Range Interpretation Comments Urine Specific [place] (test code = 5811-5) 1.015 1.010-1.02 5 [facility] HospitalUrine bJ3039-86-85 03:05:00* Test Item Value Reference Range Interpretation Comments Urine pH (test code = 98761-1) 6.5 5-7 [facility] Leukocyte Afjaddjs4466-32-09 03:05:00* Test Item Value Reference Range Interpretation Comments Urine Leukocyte Esterase (test code = 48970-6) LARGE NEGATIV E [facility] Tkpolvb5189-15-95 03:05:00* Test Item Value Reference Range Interpretation Comments Urine Nitrite (test code = 09882-2) NEGATIVE NEGATIVE [facility] Aysjnow4009-74-27 03:05:00* Test Item Value Reference Range Interpretation Comments Urine Protein (test code = 00899-1) 2+ NEGATIVE H [facility] Glucose (UA)2019-01-03 03:05:00* Test Item Value Reference Range Interpretation Comments Urine Glucose (UA) (test code = 85658-8) NEGATIVE NEGATIVE [facility] Diiktwz7688-67-29 03:05:00* Test Item Value Reference Range Interpretation Comments Urine Ketones (test code = 09168-6) NEGATIVE NEGATIVE [facility] Sntdgodlmmdd1365-81-20 03:05:00* Test Item Value Reference Range Interpretation Comments Urine Urobilinogen (test code = 47038-2) 0.2 0.2-1 [facility] Taeunygck0309-28-91 03:05:00* Test Item Value Reference Range Interpretation Comments Urine Bilirubin (test code = 1977-8) NEGATIVE NEGATIVE [facility] Vogqy4704-35-07 03:05:00* Test Item Value Reference Range Interpretation Comments Urine Blood (test code = 29144-1) MODERATE NEGATIVE [facility] HospitalProthrombin Nhst3472-36-33 03:00:00* Test Item Value Reference Range Interpretation Comments Prothrombin Time (test code = 5902-2) 14.3 11.9-14.5 [facility] HospitalProthromb Time International Ratio 2019-01-03 03:00:00* Test Item Value Reference Range Interpretation Comments Prothromb Time International Ratio (test code = 6301-6) 1.06 Oral Anticoagulant Therapy INR Values:1. Low Intensity Therapy 1.5 - 2.02 . Moderate Intensity Therapy 2.0 - 3.03. High Intensity Therapy(1) 2.5 - 3. 54. High Intensity Therapy(2) 3.0 - 4.05. Panic Value INR > 5.0 [facility] HospitalActivated Partial Thromboplast Time 2019-01-03 03:00:00* Test Item Value Reference Range Interpretation Comments Activated Partial Thromboplast Time (test code = 18537-4) 51.2 23.8-35.5 H [facility] HospitalProthrombin Agyb3682-00-93 03:00:00* Test Item Value Reference Range Interpretation Comments Prothrombin Time (test code = 5902-2) 14.3 11.9-14.5 [facility] HospitalProthromb Time International Ratio 2019-01-03 03:00:00* Test Item Value Reference Range Interpretation Comments Prothromb Time International Ratio (test code = 6301-6) 1.06 Oral Anticoagulant Therapy INR Values:1. Low Intensity Therapy 1.5 - 2.02 . Moderate Intensity Therapy 2.0 - 3.03. High Intensity Therapy(1) 2.5 - 3. 54. High Intensity Therapy(2) 3.0 - 4.05. Panic Value INR > 5.0 [facility] HospitalActivated Partial Thromboplast Time 2019-01-03 03:00:00* Test Item Value Reference Range Interpretation Comments Activated Partial Thromboplast Time (test code = 82597-4) 51.2 23.8-35.5 H [facility] HospitalActivated Partial Thromboplast Time 2019-01-03 03:00:00* Test Item Value Reference Range Interpretation Comments Activated Partial Thromboplast Time (test code = 10921-7) 51.2 23.8-35.5 H [facility] HospitalActivated Partial Thromboplast Time 2019-01-03 03:00:00* Test Item Value Reference Range Interpretation Comments Activated Partial Thromboplast Time (test code = 39009-1) 51.2 23.8-35.5 H [facility] HospitalAmmonia2019-06-18 02:55:00* Test Item Value Reference Range Interpretation Comments Ammonia (test code = 45199-9) 83 31-123 [facility] HospitalAmmonia2019-06-18 02:55:00* Test Item Value Reference Range Interpretation Comments Ammonia (test code = 43397-5) 83 31-123 [facility] HospitalUrine MCZ5005-25-26 02:54:00* Test Item Value Reference Range Interpretation Comments Urine WBC (test code = 5821-4) 6-10 0-5 H [facility] ZYM8740-87-66 02:54:00* Test Item Value Reference Range Interpretation Comments Urine RBC (test code = 52051-2) >50 0-5 H [facility] Bzbkxich9443-58-39 02:54:00* Test Item Value Reference Range Interpretation Comments Urine Bacteria (test code = 74105-3) MANY NONE H [facility] Epithelial Igobp0134-64-80 02:54:00 * Test Item Value Reference Range Interpretation Comments Urine Epithelial Cells (test code = 71580-6) FEW NONE [facility] HospitalUrine MAC9803-43-43 02:54:00* Test Item Value Reference Range Interpretation Comments Urine WBC (test code = 5821-4) 6-10 0-5 H [facility] WNY2542-03-79 02:54:00* Test Item Value Reference Range Interpretation Comments Urine RBC (test code = 28250-1) >50 0-5 H [facility] Rfhikkfm6736-06-27 02:54:00* Test Item Value Reference Range Interpretation Comments Urine Bacteria (test code = 47895-7) MANY NONE H [facility] Epithelial Qkzkq8889-77-30 02:54:00 * Test Item Value Reference Range Interpretation Comments Urine Epithelial Cells (test code = 04740-8) FEW NONE [facility] Oddjkui6670-67-66 05:12:00* Test Item Value Reference Range Interpretation Comments Urine Culture (test code = 630-4) Organism: ENTEROCOCCUS FAECIUM-VR E [facility] Hptnguk7224-02-82 05:12:00* Test Item Value Reference Range Interpretation Comments Urine Culture (test code = 630-4) Organism: ENTEROCOCCUS FAECIUM-VR E [facility] Tmfalwx1592-82-34 05:12:00* Test Item Value Reference Range Interpretation Comments Urine Culture (test code = 630-4) Organism: ENTEROCOCCUS FAECIUM-VR E [facility] Pwpjykn5815-72-11 05:12:00* Test Item Value Reference Range Interpretation Comments Urine Culture (test code = 630-4) No Result Data Provided [facility] HospitalWound Crhtdjm7906-47-92 06:52:00* Test Item Value Reference Range Interpretation Comments Wound Culture (test code = 6462-6) Organism: PSEUDOMONAS AERUGINOSA [facility] Styvhjv4805-67-05 08:27:00* Test Item Value Reference Range Interpretation Comments Urine Culture (test code = 630-4) Organism: ENTEROCOCCUS FAECIUM-VR E [facility] Atnzi5010-55-18 06:26:00* Test Item Value Reference Range Interpretation Comments Sodium Level (test code = 2951-2) 142 136-145 [facility] HospitalPotassium Chhmx5669-88-85 06:26:00* Test Item Value Reference Range Interpretation Comments Potassium Level (test code = 2823-3) 3.1 3.5-5.1 L [facility] HospitalChloride Qrlvo9599-56-51 06:26:00* Test Item Value Reference Range Interpretation Comments Chloride Level (test code = 2075-0) 111 98-107 H [facility] HospitalCarbon Dioxide Hofbi6546-84-70 06:26:00* Test Item Value Reference Range Interpretation Comments Carbon Dioxide Level (test code = 2028-9) 23 22-29 [facility] HospitalAnion Zvl5030-03-50 06:26:00* Test Item Value Reference Range Interpretation Comments Anion Gap (test code = 97277-2) 11.1 8-16 [facility] HospitalBlood Urea Hquhhrnf3981-01-66 06:26:00* Test Item Value Reference Range Interpretation Comments Blood Urea Nitrogen (test code = 3094-0) 50 7-26 H [facility] HospitalCreatinine2019-05-24 06:26:00* Test Item Value Reference Range Interpretation Comments Creatinine (test code = 2160-0) 2.32 0.57-1.11 H [facility] HospitalBUN/Creatinine Xvrcu1085-59-10 06:26:00* Test Item Value Reference Range Interpretation Comments BUN/Creatinine Ratio (test code = 3097-3) 22 6-25 [facility] HospitalEstimat Glomerular Filtration Rate 2018-12-09 06:26:00* Test Item Value Reference Range Interpretation Comments Estimat Glomerular Filtration Rate (test code = 579696519) 22 >60 L Ranges were taken from the National Kidney Disease Education Program and the [facility] Foundation literature.Reference ranges:60 or greater: Fgtgzy16-79 ( for 3 consecutive months): Chronic kidney disease 15 or less: Kidney failureMayhill HospitalGlucose Giiet8601-71-45 06:26:00* Test Item Value Reference Range Interpretation Comments Glucose Level (test code = LBC9792) 87 74-118 [facility] HospitalCalcium Upjko8368-82-69 06:26:00* Test Item Value Reference Range Interpretation Comments Calcium Level (test code = 07027-7) 8.1 8.4-10.2 L [facility] HospitalTotal Ftgzsglzo2744-37-54 06:26:00* Test Item Value Reference Range Interpretation Comments Total Bilirubin (test code = 1975-2) 2.0 0.2-1.2 H [facility] HospitalAspartate Amino Transf (AST/SGOT) 2018-12-09 06:26:00* Test Item Value Reference Range Interpretation Comments Aspartate Amino Transf (AST/SGOT) (test code = Aspartate Amino Transf (AST/SGOT)) 90 5-34 H [facility] HospitalAlanine Aminotransferase (ALT/SGPT) 2018-12-09 06:26:00* Test Item Value Reference Range Interpretation Comments Alanine Aminotransferase (ALT/SGPT) (test code = 1742-6) 39 0-55 [facility] HospitalTotal Rsiwmrj8223-34-58 06:26:00* Test Item Value Reference Range Interpretation Comments Total Protein (test code = 2885-2) 5.0 6.5-8.1 L [facility] HospitalAlbumin2019-05-24 06:26:00* Test Item Value Reference Range Interpretation Comments Albumin (test code = 1751-7) 0.9 3.5-5.0 L [facility] HospitalGlobulin2019-05-24 06:26:00* Test Item Value Reference Range Interpretation Comments Globulin (test code = 22223-4) 4.1 2.3-3.5 H [facility] HospitalAlbumin/Globulin Wbhux7250-19-37 06:26:00 * Test Item Value Reference Range Interpretation Comments Albumin/Globulin Ratio (test code = 1759-0) 0.2 0.8-2.0 L [facility] HospitalAlkaline Jrnsuybcnws8689-18-46 06:26:00* Test Item Value Reference Range Interpretation Comments Alkaline Phosphatase (test code = 6768-6) 862 40-150 H [facility] HospitalWhite Blood Gqjzd4669-72-07 05:58:00* Test Item Value Reference Range Interpretation Comments White Blood Count (test code = 6690-2) 6.71 4.8-10.8 [facility] HospitalRed Blood Tadck8121-47-37 05:58:00* Test Item Value Reference Range Interpretation Comments Red Blood Count (test code = 789-8) 2.71 3.6-5.1 L [facility] HospitalHemoglobin2019-05-24 05:58:00* Test Item Value Reference Range Interpretation Comments Hemoglobin (test code = 19867-5) 7.8 12.0-16.0 L [facility] HospitalHematocrit2019-05-24 05:58:00* Test Item Value Reference Range Interpretation Comments Hematocrit (test code = 4544-3) 24.7 34.2-44.1 L [facility] HospitalMean Corpuscular Qjvntf6173-56-41 05:58:00* Test Item Value Reference Range Interpretation Comments Mean Corpuscular Volume (test code = 787-2) 91.1 81-99 [facility] HospitalMean Corpuscular Tpkabujrgu8395-38-21 05:58:00* Test Item Value Reference Range Interpretation Comments Mean Corpuscular Hemoglobin (test code = 785-6) 28.8 28-32 [facility] HospitalMean Corpuscular Hemoglobin Concent 2018-12-09 05:58:00* Test Item Value Reference Range Interpretation Comments Mean Corpuscular Hemoglobin Concent (test code = 786-4) 31.6 31-35 [facility] Cell Distribution [id number] 05:58:00* Test Item Value Reference Range Interpretation Comments Red Cell Distribution Width (test code = 49444-5) 19.7 11.7 -14.4 H [facility] HospitalPlatelet [id number] 05:58:00* Test Item Value Reference Range Interpretation Comments Platelet Count (test code = 777-3) 96 140-360 L [facility] HospitalNeutrophils (%) (Auto)2018-12-09 05:58:00 * Test Item Value Reference Range Interpretation Comments Neutrophils (%) (Auto) (test code = 01028-6) 50.1 38.7-80.0 [facility] HospitalLymphocytes (%) (Auto)2018-12-09 05:58:00 * Test Item Value Reference Range Interpretation Comments Lymphocytes (%) (Auto) (test code = 736-9) 32.3 18.0-39.1 [facility] HospitalMonocytes (%) (Auto)2018-12-09 05:58:00* Test Item Value Reference Range Interpretation Comments Monocytes (%) (Auto) (test code = 5905-5) 8.3 4.4-11.3 [facility] HospitalEosinophils (%) (Auto)2018-12-09 05:58:00 * Test Item Value Reference Range Interpretation Comments Eosinophils (%) (Auto) (test code = 713-8) 8.0 0.0-6.0 H [facility] HospitalBasophils (%) (Auto)2018-12-09 05:58:00* Test Item Value Reference Range Interpretation Comments Basophils (%) (Auto) (test code = 706-2) 0.7 0.0-1.0 [facility] HospitalIM GRANULOCYTES %2018-12-09 05:58:00* Test Item Value Reference Range Interpretation Comments IM GRANULOCYTES % (test code = IM GRANULOCYTES %) 0.6 0.0- 1.0 [facility] HospitalNeutrophils # (Auto)2018-12-09 05:58:00* Test Item Value Reference Range Interpretation Comments Neutrophils # (Auto) (test code = 751-8) 3.4 2.1-6.9 [facility] HospitalLymphocytes # (Auto)2018-12-09 05:58:00* Test Item Value Reference Range Interpretation Comments Lymphocytes # (Auto) (test code = 17927-7) 2.2 1.0-3.2 [facility] HospitalMonocytes # (Auto)2018-12-09 05:58:00* Test Item Value Reference Range Interpretation Comments Monocytes # (Auto) (test code = 742-7) 0.6 0.2-0.8 [facility] HospitalEosinophils # (Auto)2018-12-09 05:58:00* Test Item Value Reference Range Interpretation Comments Eosinophils # (Auto) (test code = 711-2) 0.5 0.0-0.4 H [facility] HospitalBasophils # (Auto)2018-12-09 05:58:00* Test Item Value Reference Range Interpretation Comments Basophils # (Auto) (test code = 704-7) 0.1 0.0-0.1 [facility] HospitalAbsolute Immature Granulocyte (auto 2018-12-09 05:58:00* Test Item Value Reference Range Interpretation Comments Absolute Immature Granulocyte (auto (patel t code = Absolute Immature Granulocyte (auto) 0.04 0-0.1 [facility] HospitalABDOMEN-1VIEW (KUB)2018-12-07 20:40:00 [facility] [address] [place] [address] Patient Name: EFRAIN BARBOSA MR #: [id number] : [birth year] Age/Sex: 53/F Req #: [id number] Adm Physician: KIM DILL MD Ordered by: OMER LUNA MD Report #: [id number] Location: [facility] Room/Bed: 200-1 Procedure: [id number] DX/ ABDOMEN-1VIEW (KUB) Exam Date: 12/07/18 Exam [...] Transcribed By: JENNIFER on 12/07/182042 COPY TO: OMER LUNA MD US ABDOMEN [id number] 16:07:00 [place] [address] Patient Name: EFRAIN BARBOSA MR #: [id number] : 1965 Age/Sex: 53/F Req #: [id number] Adm Physician: KIM DILL MD Ordered by: KIM DILL MD Report #: [id number] Location: MED/SURG2 Room/Bed: 200 Procedure: [id number] US /US ABDOMEN COMPLETE Exam Date: Exam [...] S igned By: TOMY BRICENO MD on 12/07/181610 Transcribed By: JENNIFER on 12/07/18 1611 COPY TO: KIM DILL MD Urine Twnavyuc3812-13-25 11:56:00 * Test Item Value Reference Range Interpretation Comments Urine Bacteria (test code = 41577-8) MODERATE NONE H [facility] HospitalUrine Epithelial Vuttv8944-00-06 11:55:00 * Test Item Value Reference Range Interpretation Comments Urine Epithelial Cells (test code = 05815-7) FEW NONE [facility] HospitalUrine [id number] 11:20:00* Test Item Value Reference Range Interpretation Comments Urine WBC (test code = 5821-4) 21-50 0-5 H [facility] HospitalUrine [id number] 11:20:00* Test Item Value Reference Range Interpretation Comments Urine RBC (test code = 28679-4) 6-10 0-5 H [facility] HospitalUrine Axnuz8173-67-20 11:20:00* Test Item Value Reference Range Interpretation Comments Urine Yeast (test code = 04790-0) FEW NONE [facility] Cbkqz2354-77-51 11:20:00* Test Item Value Reference Range Interpretation Comments Urine Yeast (test code = 37379-2) FEW NONE [facility] Pikgu4074-75-28 11:20:00* Test Item Value Reference Range Interpretation Comments Urine Yeast (test code = 10718-8) FEW NONE [facility] Fmgqn5596-46-40 11:20:00* Test Item Value Reference Range Interpretation Comments Urine Yeast (test code = 04549-0) FEW NONE [facility] [id number] 11:20:00* Test Item Value Reference Range Interpretation Comments Urine Yeast (test code = 91001-5) FEW NONE [facility] HospitalUrine [id number] 11:20:00* Test Item Value Reference Range Interpretation Comments Urine Yeast (test code = 25150-6) FEW NONE [facility] HospitalU[facility] [id number] 11:01:00* Test Item Value Reference Range Interpretation Comments Urine Color (test code = 5778-6) YELLOW YELLOW [facility] Kxfcqqa0769-85-57 11:01:00* Test Item Value Reference Range Interpretation Comments Urine Clarity (test code = 07508-4) CLOUDY CLEAR H [facility] HospitalUrine Specific Kiwffwy5704-84-50 11:01:00 * Test Item Value Reference Range Interpretation Comments Urine Specific [place] (test code = 5811-5) 1.015 1.010-1.02 5 [facility] [id number] 11:01:00* Test Item Value Reference Range Interpretation Comments Urine pH (test code = 63574-0) 6 5-7 [facility] Leukocyte Nfpvikpt4085-63-80 11:01:00* Test Item Value Reference Range Interpretation Comments Urine Leukocyte Esterase (test code = 5799-2) 2+ NEGATIVE H [facility] Ckzwdmm6077-80-09 11:01:00* Test Item Value Reference Range Interpretation Comments Urine Nitrite (test code = 51785-9) NEGATIVE NEGATIVE [facility] Kdmwfxw9727-69-92 11:01:00* Test Item Value Reference Range Interpretation Comments Urine Protein (test code = 5804-0) 1+ NEGATIVE H [facility] HospitalUrine Glucose (UA)2018-12-07 11:01:00* Test Item Value Reference Range Interpretation Comments Urine Glucose (UA) (test code = 2349-9) NEGATIVE NEGATIVE [facility] [id number] 11:01:00* Test Item Value Reference Range Interpretation Comments Urine Ketones (test code = 71446-6) NEGATIVE NEGATIVE [facility] Jbxyafqcgqgy6946-35-45 11:01:00* Test Item Value Reference Range Interpretation Comments Urine Urobilinogen (test code = 94740-9) 0.2 0.2-1 [facility] Kchwlpkvs7724-51-46 11:01:00* Test Item Value Reference Range Interpretation Comments Urine Bilirubin (test code = 1978-6) NEGATIVE NEGATIVE [facility] Qczxy9543-96-36 11:01:00* Test Item Value Reference Range Interpretation Comments Urine Blood (test code = 21638-0) 3+ NEGATIVE H [facility] HospitalCBC W/AUTO [id number] 11:58:00* Test Item Value Reference Range Interpretation Comments WHITE BLOOD CELL (test code = WBC) 9.2 K/mm3 4.5-12.5 N RED BLOOD CELL (test code = RBC) 3.09 mill/mm3 3.7-5.2 L HEMOGLOBIN (test code = HGB) 8.5 gram/dL 11.5-15.5 L HEMATOCRIT (test code = HCT) 27.7 % 36.0-46.0 L MEAN CELL VOLUME (test code = MCV) 89.6 fL 80-98 N MEAN CELL HGB (test code = MCH) 27.5 picogram 27.0-33.0 N MEAN CELL HGB CONCETRATION (test code = MCHC) 30.7 gram/dL 33.0-36. 0 L RED CELL DISTRIBUTION WIDTH (test code = RDW) 18.6 % 11.6-16. 2 H RED CELL DISTRIBUTION WIDTH SD (test code = RDW-SD) 60.0 fL 37 .0-51.0 H PLATELET COUNT (test code = PLT) 47 K/mm3 150-450 LL Results called to [id number] by ERIC 11/23/18 0919Critical results verified and read back by Nurse? Y MEAN PLATELET VOLUME (test code = MPV) TEST NOT PERFORMED fL 6.7-11 .0 NEUTROPHIL % (test code = NT%) 57.5 % 39.0-69.0 N IMMATURE GRANULOCYTE % (test code = IG%) 0.8 % 0.0-5.0 N LYMPHOCYTE % (test code = LY%) 32.2 % 25.0-55.0 N MONOCYTE % (test code = MO%) 7.3 % 0.0-10.0 N EOSINOPHIL % (test code = EO%) 1.8 % 0.0-5.0 N BASOPHIL % (test code = BA%) 0.4 % 0.0-1.0 N NUCLEATED RBC % (test code = NRBC%) 0.0 % 0-0 N NEUTROPHIL # (test code = NT#) 5.31 K/mm3 1.8-7.7 N IMMATURE GRANULOCYTE # (test code = IG#) 0.07 x10 3/uL 0-0.03 H LYMPHOCYTE # (test code = LY#) 2.97 K/mm3 1.0-5.0 N MONOCYTE # (test code = MO#) 0.67 K/mm3 0-0.8 N EOSINOPHIL # (test code = EO#) 0.17 K/mm3 0.0-0.5 N BASOPHIL # (test code = BA#) 0.04 K/mm3 0.0-0.2 N NUCLEATED RBC # (test code = NRBC#) 0.00 K/mm3 0.0-0.1 N MANUAL DIFF REQUIRED (test code = MDIFF) NO, ONLY SCAN NEEDED DIFFERENTIAL [id number] 11:58:00* Test Item Value Reference Range Interpretation Comments STAIN ACCEPTABILITY (test code = STN ACCEPTABLE) STAIN ACCEPTABLE POLYCHROMASIA (test code = POLC) 1+ POIKILOCYTOSIS (test code = POIK) 1+ ANISOCYTOSIS (test code = ANISO) 2+ MACROCYTOSIS (test code = MACR) 2+ TARGET CELLS (test code = TGT) 1+ PLATELET ESTIMATE (test code = PLTEST) DECREASED PLATELET MORPHOLOGY (test code = PLTMORPH) GIANT PLATELETS SEEN PLATELETS CLUMPING SEEN BASIC METABOLIC [id number] 10:14:00* Test Item Value Reference Range Interpretation Comments SODIUM (test code = NA) 145 mmol/L 136-145 N POTASSIUM (test code = K) 3.5 mmol/L 3.5-5.1 N CHLORIDE (test code = CL) 111.0 mmol/L 98-107 H CARBON DIOXIDE (test code = CO2) 26.0 mmol/L 21-32 N ANION GAP (test code = GAP) 11.5 10-20 N GLUCOSE (test code = GLU) 81 mg/dL 74-106 N BLOOD UREA NITROGEN (test code = BUN) 49 mg/dL 7-18 H GLOMERULAR FILTRATION RATE (test code = GFR) 21 mL/min >=60 Estimated GFR by using Modified MDRD formula.Chronic kidney disease is defined as either kidney damageor GFR <60 mL/min/1.73 m2 for >3 months. CREATININE (test code = CREAT) 2.40 mg/dL 0.55-1.02 H Note change in reference range due to change in reagent. BUN/CREATININE RATIO (test code = BUN/CREA) 20.4 10-20 H CALCIUM (test code = CA) 8.5 mg/dL 8.5-10.1 N BASIC METABOLIC [id number] 09:52:00* Test Item Value Reference Range Interpretation Comments SODIUM (test code = NA) 145 mmol/L 136-145 N POTASSIUM (test code = K) 3.5 mmol/L 3.5-5.1 N CHLORIDE (test code = CL) 111.0 mmol/L 98-107 H CARBON DIOXIDE (test code = CO2) mmol/L 21-32 ANION GAP (test code = GAP) 10-20 GLUCOSE (test code = GLU) mg/dL 74-106 BLOOD UREA NITROGEN (test code = BUN) mg/dL 7-18 GLOMERULAR FILTRATION RATE (test code = GFR) mL/min >=60 CREATININE (test code = CREAT) mg/dL 0.55-1.02 BUN/CREATININE RATIO (test code = BUN/CREA) 10-20 CALCIUM (test code = CA) mg/dL 8.5-10.1 CBC W/AUTO [id number] 09:22:00* Test Item Value Reference Range Interpretation Comments WHITE BLOOD CELL (test code = WBC) 9.2 K/mm3 4.5-12.5 N RED BLOOD CELL (test code = RBC) 3.09 mill/mm3 3.7-5.2 L HEMOGLOBIN (test code = HGB) 8.5 gram/dL 11.5-15.5 L HEMATOCRIT (test code = HCT) 27.7 % 36.0-46.0 L MEAN CELL VOLUME (test code = MCV) 89.6 fL 80-98 N MEAN CELL HGB (test code = MCH) 27.5 picogram 27.0-33.0 N MEAN CELL HGB CONCETRATION (test code = MCHC) 30.7 gram/dL 33.0-36. 0 L RED CELL DISTRIBUTION WIDTH (test code = RDW) 18.6 % 11.6-16. 2 H RED CELL DISTRIBUTION WIDTH SD (test code = RDW-SD) 60.0 fL 37 .0-51.0 H PLATELET COUNT (test code = PLT) 47 K/mm3 150-450 LL Results called to [id number] by ERIC 11/23/18 0919Critical results verified and read back by Nurse? Y MEAN PLATELET VOLUME (test code = MPV) TEST NOT PERFORMED fL 6.7-11 .0 NEUTROPHIL % (test code = NT%) 57.5 % 39.0-69.0 N IMMATURE GRANULOCYTE % (test code = IG%) 0.8 % 0.0-5.0 N LYMPHOCYTE % (test code = LY%) 32.2 % 25.0-55.0 N MONOCYTE % (test code = MO%) 7.3 % 0.0-10.0 N EOSINOPHIL % (test code = EO%) 1.8 % 0.0-5.0 N BASOPHIL % (test code = BA%) 0.4 % 0.0-1.0 N NUCLEATED RBC % (test code = NRBC%) 0.0 % 0-0 N NEUTROPHIL # (test code = NT#) 5.31 K/mm3 1.8-7.7 N IMMATURE GRANULOCYTE # (test code = IG#) 0.07 x10 3/uL 0-0.03 H LYMPHOCYTE # (test code = LY#) 2.97 K/mm3 1.0-5.0 N MONOCYTE # (test code = MO#) 0.67 K/mm3 0-0.8 N EOSINOPHIL # (test code = EO#) 0.17 K/mm3 0.0-0.5 N BASOPHIL # (test code = BA#) 0.04 K/mm3 0.0-0.2 N NUCLEATED RBC # (test code = NRBC#) 0.00 K/mm3 0.0-0.1 N MANUAL DIFF REQUIRED (test code = MDIFF) NO, ONLY SCAN NEEDED DIFFERENTIAL [id number] 09:22:00* Test Item Value Reference Range Interpretation Comments STAIN ACCEPTABILITY (test code = STN ACCEPTABLE) CABOT RINGS (test code = CAB) MORPHOLOGY COMMENT (test code = MOC) PLATELET ESTIMATE (test code = PLTEST) PLATELET MORPHOLOGY (test code = PLTMORPH) CBC W/AUTO [id number] 09:22:00* Test Item Value Reference Range Interpretation Comments WHITE BLOOD CELL (test code = WBC) 9.2 K/mm3 4.5-12.5 N RED BLOOD CELL (test code = RBC) 3.09 mill/mm3 3.7-5.2 L HEMOGLOBIN (test code = HGB) 8.5 gram/dL 11.5-15.5 L HEMATOCRIT (test code = HCT) 27.7 % 36.0-46.0 L MEAN CELL VOLUME (test code = MCV) 89.6 fL 80-98 N MEAN CELL HGB (test code = MCH) 27.5 picogram 27.0-33.0 N MEAN CELL HGB CONCETRATION (test code = MCHC) 30.7 gram/dL 33.0-36. 0 L RED CELL DISTRIBUTION WIDTH (test code = RDW) 18.6 % 11.6-16. 2 H RED CELL DISTRIBUTION WIDTH SD (test code = RDW-SD) 60.0 fL 37 .0-51.0 H PLATELET COUNT (test code = PLT) 47 K/mm3 150-450 LL Results called to [id number] by MADELAINEKNG1 11/23/18 0919Critical results verified and read back by Nurse? Y MEAN PLATELET VOLUME (test code = MPV) TEST NOT PERFORMED fL 6.7-11 .0 NEUTROPHIL % (test code = NT%) 57.5 % 39.0-69.0 N IMMATURE GRANULOCYTE % (test code = IG%) 0.8 % 0.0-5.0 N LYMPHOCYTE % (test code = LY%) 32.2 % 25.0-55.0 N MONOCYTE % (test code = MO%) 7.3 % 0.0-10.0 N EOSINOPHIL % (test code = EO%) 1.8 % 0.0-5.0 N BASOPHIL % (test code = BA%) 0.4 % 0.0-1.0 N NUCLEATED RBC % (test code = NRBC%) 0.0 % 0-0 N NEUTROPHIL # (test code = NT#) 5.31 K/mm3 1.8-7.7 N IMMATURE GRANULOCYTE # (test code = IG#) 0.07 x10 3/uL 0-0.03 H LYMPHOCYTE # (test code = LY#) 2.97 K/mm3 1.0-5.0 N MONOCYTE # (test code = MO#) 0.67 K/mm3 0-0.8 N EOSINOPHIL # (test code = EO#) 0.17 K/mm3 0.0-0.5 N BASOPHIL # (test code = BA#) 0.04 K/mm3 0.0-0.2 N NUCLEATED RBC # (test code = NRBC#) 0.00 K/mm3 0.0-0.1 N MANUAL DIFF REQUIRED (test code = MDIFF) NO, ONLY SCAN NEEDED DIFFERENTIAL [id number] 09:22:00* Test Item Value Reference Range Interpretation Comments STAIN ACCEPTABILITY (test code = STN ACCEPTABLE) CABOT RINGS (test code = CAB) MORPHOLOGY COMMENT (test code = MOC) PLATELET ESTIMATE (test code = PLTEST) PLATELET MORPHOLOGY (test code = PLTMORPH) CBC W/AUTO [id number] 09:22:00* Test Item Value Reference Range Interpretation Comments WHITE BLOOD CELL (test code = WBC) 9.2 K/mm3 4.5-12.5 N RED BLOOD CELL (test code = RBC) 3.09 mill/mm3 3.7-5.2 L HEMOGLOBIN (test code = HGB) 8.5 gram/dL 11.5-15.5 L HEMATOCRIT (test code = HCT) 27.7 % 36.0-46.0 L MEAN CELL VOLUME (test code = MCV) 89.6 fL 80-98 N MEAN CELL HGB (test code = MCH) 27.5 picogram 27.0-33.0 N MEAN CELL HGB CONCETRATION (test code = MCHC) 30.7 gram/dL 33.0-36. 0 L RED CELL DISTRIBUTION WIDTH (test code = RDW) 18.6 % 11.6-16. 2 H RED CELL DISTRIBUTION WIDTH SD (test code = RDW-SD) 60.0 fL 37 .0-51.0 H PLATELET COUNT (test code = PLT) 47 K/mm3 150-450 LL Results called to [id number]\\CRYSTAL by MADELAINEKN 11/23/18 0919Critical results verified and read back by Nurse? Y MEAN PLATELET VOLUME (test code = MPV) TEST NOT PERFORMED fL 6.7-11 .0 NEUTROPHIL % (test code = NT%) 57.5 % 39.0-69.0 N IMMATURE GRANULOCYTE % (test code = IG%) 0.8 % 0.0-5.0 N LYMPHOCYTE % (test code = LY%) 32.2 % 25.0-55.0 N MONOCYTE % (test code = MO%) 7.3 % 0.0-10.0 N EOSINOPHIL % (test code = EO%) 1.8 % 0.0-5.0 N BASOPHIL % (test code = BA%) 0.4 % 0.0-1.0 N NUCLEATED RBC % (test code = NRBC%) 0.0 % 0-0 N NEUTROPHIL # (test code = NT#) 5.31 K/mm3 1.8-7.7 N IMMATURE GRANULOCYTE # (test code = IG#) 0.07 x10 3/uL 0-0.03 H LYMPHOCYTE # (test code = LY#) 2.97 K/mm3 1.0-5.0 N MONOCYTE # (test code = MO#) 0.67 K/mm3 0-0.8 N EOSINOPHIL # (test code = EO#) 0.17 K/mm3 0.0-0.5 N BASOPHIL # (test code = BA#) 0.04 K/mm3 0.0-0.2 N NUCLEATED RBC # (test code = NRBC#) 0.00 K/mm3 0.0-0.1 N MANUAL DIFF REQUIRED (test code = MDIFF) NO, ONLY SCAN NEEDED DIFFERENTIAL [id number] 09:22:00* Test Item Value Reference Range Interpretation Comments STAIN ACCEPTABILITY (test code = STN ACCEPTABLE) MORPHOLOGY COMMENT (test code = MOC) PLATELET ESTIMATE (test code = PLTEST) PLATELET MORPHOLOGY (test code = PLTMORPH) CBC W/AUTO [id number] 09:22:00* Test Item Value Reference Range Interpretation Comments WHITE BLOOD CELL (test code = WBC) 9.2 K/mm3 4.5-12.5 N RED BLOOD CELL (test code = RBC) 3.09 mill/mm3 3.7-5.2 L HEMOGLOBIN (test code = HGB) 8.5 gram/dL 11.5-15.5 L HEMATOCRIT (test code = HCT) 27.7 % 36.0-46.0 L MEAN CELL VOLUME (test code = MCV) 89.6 fL 80-98 N MEAN CELL HGB (test code = MCH) 27.5 picogram 27.0-33.0 N MEAN CELL HGB CONCETRATION (test code = MCHC) 30.7 gram/dL 33.0-36. 0 L RED CELL DISTRIBUTION WIDTH (test code = RDW) 18.6 % 11.6-16. 2 H RED CELL DISTRIBUTION WIDTH SD (test code = RDW-SD) 60.0 fL 37 .0-51.0 H PLATELET COUNT (test code = PLT) 47 K/mm3 150-450 LL Results called to [id number]\\FAIZA by ERIC 11/23/18 0919Critical results verified and read back by Nurse? Y MEAN PLATELET VOLUME (test code = MPV) TEST NOT PERFORMED fL 6.7-11 .0 NEUTROPHIL % (test code = NT%) 57.5 % 39.0-69.0 N IMMATURE GRANULOCYTE % (test code = IG%) 0.8 % 0.0-5.0 N LYMPHOCYTE % (test code = LY%) 32.2 % 25.0-55.0 N MONOCYTE % (test code = MO%) 7.3 % 0.0-10.0 N EOSINOPHIL % (test code = EO%) 1.8 % 0.0-5.0 N BASOPHIL % (test code = BA%) 0.4 % 0.0-1.0 N NUCLEATED RBC % (test code = NRBC%) 0.0 % 0-0 N NEUTROPHIL # (test code = NT#) 5.31 K/mm3 1.8-7.7 N IMMATURE GRANULOCYTE # (test code = IG#) 0.07 x10 3/uL 0-0.03 H LYMPHOCYTE # (test code = LY#) 2.97 K/mm3 1.0-5.0 N MONOCYTE # (test code = MO#) 0.67 K/mm3 0-0.8 N EOSINOPHIL # (test code = EO#) 0.17 K/mm3 0.0-0.5 N BASOPHIL # (test code = BA#) 0.04 K/mm3 0.0-0.2 N NUCLEATED RBC # (test code = NRBC#) 0.00 K/mm3 0.0-0.1 N MANUAL DIFF REQUIRED (test code = MDIFF) NO, ONLY SCAN NEEDED DIFFERENTIAL [id number] 09:22:00* Test Item Value Reference Range Interpretation Comments STAIN ACCEPTABILITY (test code = STN ACCEPTABLE) CABOT RINGS (test code = CAB) MORPHOLOGY COMMENT (test code = MOC) PLATELET ESTIMATE (test code = PLTEST) PLATELET MORPHOLOGY (test code = PLTMORPH) [id number] 13:11:00* Test Item Value Reference Range Interpretation Comments CREATINE (test code = CRTN) 0.5 mg/dL 0.1-1.0 This test was developed and its performance characteristicsdetermined by [facility]. It has not been cleared orapproved by the Food and Drug Administration.Performed At: [address] [id number] Sanjai MD Ph:[phone] SPECIMEN COMMENTS: DRAWN PROM DOMINICK DRAINAGE SPECIMEN COMMENTS: NURSE WILL DRAW AND SEND TO SHANNANJM STONE [id number] 12:04:00* Test Item Value Reference Range Interpretation Comments KIDNEY STONE ANALYSIS (test code = STONEK) mm () Specimen received as fragments. SOURCE OF STONE (test code = STONESRC) URINARY STONE ANALYSIS COMMENT (test code = STONECOM) NO NIDUS VISUALIZED N IDUS Color: Brown Size : Specimen received as fragments. Composition: Percentage (Represents the % composition) Ca oxalate dihydrate 05 % Ca oxalate monohydr. 45 % Calcium phosphate 50 % Test performed at: [facility] [place] [id number] STONE ANALYSIS (test code = STONE) () Photograph will follow under separate cover. WEIGHT OF STONE (test code = STONEWT) 62.5 mg () Test performed at: [place] [id number] KIDNEY STONE [id number] 09:15:00* Test Item Value Reference Range Interpretation Comments KIDNEY STONE ANALYSIS (test code = STONEK) mm () Specimen received as fragments. SOURCE OF STONE (test code = STONESRC) STONE ANALYSIS COMMENT (test code = STONECOM) NIDUS STONE ANALYSIS (test code = STONE) () Photograph will follow under separate cover. WEIGHT OF STONE (test code = STONEWT) 62.5 mg () [facility]: [facility] [address] [place] [address] CBC W/AUTO [id number] 14:47:00* Test Item Value Reference Range Interpretation Comments WHITE BLOOD CELL (test code = WBC) 8.2 K/mm3 4.5-12.5 N RED BLOOD CELL (test code = RBC) 3.11 mill/mm3 3.7-5.2 L HEMOGLOBIN (test code = HGB) 8.4 gram/dL 11.5-15.5 L HEMATOCRIT (test code = HCT) 27.8 % 36.0-46.0 L MEAN CELL VOLUME (test code = MCV) 89.4 fL 80-98 N MEAN CELL HGB (test code = MCH) 27.0 picogram 27.0-33.0 N MEAN CELL HGB CONCETRATION (test code = MCHC) 30.2 gram/dL 33.0-36. 0 L RED CELL DISTRIBUTION WIDTH (test code = RDW) 18.4 % 11.6-16. 2 H RED CELL DISTRIBUTION WIDTH SD (test code = RDW-SD) 59.8 fL 37 .0-51.0 H PLATELET COUNT (test code = PLT) 36 K/mm3 150-450 LL RESULT VERIFIED BY REPEAT ANALYSISCritical results verified and read back by Nurse? Y NEUTROPHIL % (test code = NT%) 55.5 % 39.0-69.0 N IMMATURE GRANULOCYTE % (test code = IG%) 1.0 % 0.0-5.0 N LYMPHOCYTE % (test code = LY%) 35.0 % 25.0-55.0 N MONOCYTE % (test code = MO%) 6.5 % 0.0-10.0 N EOSINOPHIL % (test code = EO%) 1.5 % 0.0-5.0 N BASOPHIL % (test code = BA%) 0.5 % 0.0-1.0 N NUCLEATED RBC % (test code = NRBC%) 0.0 % 0-0 N NEUTROPHIL # (test code = NT#) 4.54 K/mm3 1.8-7.7 N IMMATURE GRANULOCYTE # (test code = IG#) 0.08 x10 3/uL 0-0.03 H LYMPHOCYTE # (test code = LY#) 2.86 K/mm3 1.0-5.0 N MONOCYTE # (test code = MO#) 0.53 K/mm3 0-0.8 N EOSINOPHIL # (test code = EO#) 0.12 K/mm3 0.0-0.5 N BASOPHIL # (test code = BA#) 0.04 K/mm3 0.0-0.2 N NUCLEATED RBC # (test code = NRBC#) 0.00 K/mm3 0.0-0.1 N MANUAL DIFF REQUIRED (test code = MDIFF) NO, ONLY SCAN NEEDED SEE NOTE [id number] 14:47:00* Test Item Value Reference Range Interpretation Comments STAIN ACCEPTABILITY (test code = STN ACCEPTABLE) STAIN ACCEPTABLE HYPOCHROMIA (test code = HYPO) 1+ ANISOCYTOSIS (test code = ANISO) 1+ MACROCYTOSIS (test code = MACR) 1+ PLATELET ESTIMATE (test code = PLTEST) DECREASED PLATELET MORPHOLOGY (test code = PLTMORPH) NORMAL SEE NOTE [id number] W/AUTO [id number] 13:25:00* Test Item Value Reference Range Interpretation Comments WHITE BLOOD CELL (test code = WBC) 8.2 K/mm3 4.5-12.5 N RED BLOOD CELL (test code = RBC) 3.11 mill/mm3 3.7-5.2 L HEMOGLOBIN (test code = HGB) 8.4 gram/dL 11.5-15.5 L HEMATOCRIT (test code = HCT) 27.8 % 36.0-46.0 L MEAN CELL VOLUME (test code = MCV) 89.4 fL 80-98 N MEAN CELL HGB (test code = MCH) 27.0 picogram 27.0-33.0 N MEAN CELL HGB CONCETRATION (test code = MCHC) 30.2 gram/dL 33.0-36. 0 L RED CELL DISTRIBUTION WIDTH (test code = RDW) 18.4 % 11.6-16. 2 H RED CELL DISTRIBUTION WIDTH SD (test code = RDW-SD) 59.8 fL 37 .0-51.0 H PLATELET COUNT (test code = PLT) 36 K/mm3 150-450 LL RESULT VERIFIED BY REPEAT ANALYSISCritical results verified and read back by Nurse? Y NEUTROPHIL % (test code = NT%) 55.5 % 39.0-69.0 N IMMATURE GRANULOCYTE % (test code = IG%) 1.0 % 0.0-5.0 N LYMPHOCYTE % (test code = LY%) 35.0 % 25.0-55.0 N MONOCYTE % (test code = MO%) 6.5 % 0.0-10.0 N EOSINOPHIL % (test code = EO%) 1.5 % 0.0-5.0 N BASOPHIL % (test code = BA%) 0.5 % 0.0-1.0 N NUCLEATED RBC % (test code = NRBC%) 0.0 % 0-0 N NEUTROPHIL # (test code = NT#) 4.54 K/mm3 1.8-7.7 N IMMATURE GRANULOCYTE # (test code = IG#) 0.08 x10 3/uL 0-0.03 H LYMPHOCYTE # (test code = LY#) 2.86 K/mm3 1.0-5.0 N MONOCYTE # (test code = MO#) 0.53 K/mm3 0-0.8 N EOSINOPHIL # (test code = EO#) 0.12 K/mm3 0.0-0.5 N BASOPHIL # (test code = BA#) 0.04 K/mm3 0.0-0.2 N NUCLEATED RBC # (test code = NRBC#) 0.00 K/mm3 0.0-0.1 N MANUAL DIFF REQUIRED (test code = MDIFF) NO, ONLY SCAN NEEDED SEE NOTE [id number] 13:25:00* Test Item Value Reference Range Interpretation Comments STAIN ACCEPTABILITY (test code = STN ACCEPTABLE) CABOT RINGS (test code = CAB) MORPHOLOGY COMMENT (test code = MOC) PLATELET ESTIMATE (test code = PLTEST) PLATELET MORPHOLOGY (test code = PLTMORPH) SEE NOTE [id number] W/AUTO [id number] 13:25:00* Test Item Value Reference Range Interpretation Comments WHITE BLOOD CELL (test code = WBC) 8.2 K/mm3 4.5-12.5 N RED BLOOD CELL (test code = RBC) 3.11 mill/mm3 3.7-5.2 L HEMOGLOBIN (test code = HGB) 8.4 gram/dL 11.5-15.5 L HEMATOCRIT (test code = HCT) 27.8 % 36.0-46.0 L MEAN CELL VOLUME (test code = MCV) 89.4 fL 80-98 N MEAN CELL HGB (test code = MCH) 27.0 picogram 27.0-33.0 N MEAN CELL HGB CONCETRATION (test code = MCHC) 30.2 gram/dL 33.0-36. 0 L RED CELL DISTRIBUTION WIDTH (test code = RDW) 18.4 % 11.6-16. 2 H RED CELL DISTRIBUTION WIDTH SD (test code = RDW-SD) 59.8 fL 37 .0-51.0 H PLATELET COUNT (test code = PLT) 36 K/mm3 150-450 LL RESULT VERIFIED BY REPEAT ANALYSISCritical results verified and read back by Nurse? Y NEUTROPHIL % (test code = NT%) 55.5 % 39.0-69.0 N IMMATURE GRANULOCYTE % (test code = IG%) 1.0 % 0.0-5.0 N LYMPHOCYTE % (test code = LY%) 35.0 % 25.0-55.0 N MONOCYTE % (test code = MO%) 6.5 % 0.0-10.0 N EOSINOPHIL % (test code = EO%) 1.5 % 0.0-5.0 N BASOPHIL % (test code = BA%) 0.5 % 0.0-1.0 N NUCLEATED RBC % (test code = NRBC%) 0.0 % 0-0 N NEUTROPHIL # (test code = NT#) 4.54 K/mm3 1.8-7.7 N IMMATURE GRANULOCYTE # (test code = IG#) 0.08 x10 3/uL 0-0.03 H LYMPHOCYTE # (test code = LY#) 2.86 K/mm3 1.0-5.0 N MONOCYTE # (test code = MO#) 0.53 K/mm3 0-0.8 N EOSINOPHIL # (test code = EO#) 0.12 K/mm3 0.0-0.5 N BASOPHIL # (test code = BA#) 0.04 K/mm3 0.0-0.2 N NUCLEATED RBC # (test code = NRBC#) 0.00 K/mm3 0.0-0.1 N MANUAL DIFF REQUIRED (test code = MDIFF) NO, ONLY SCAN NEEDED SEE NOTE [id number] 13:25:00* Test Item Value Reference Range Interpretation Comments STAIN ACCEPTABILITY (test code = STN ACCEPTABLE) MORPHOLOGY COMMENT (test code = MOC) PLATELET ESTIMATE (test code = PLTEST) PLATELET MORPHOLOGY (test code = PLTMORPH) SEE NOTE [id number] W/AUTO [id number] 13:24:00* Test Item Value Reference Range Interpretation Comments WHITE BLOOD CELL (test code = WBC) 8.2 K/mm3 4.5-12.5 N RED BLOOD CELL (test code = RBC) 3.11 mill/mm3 3.7-5.2 L HEMOGLOBIN (test code = HGB) 8.4 gram/dL 11.5-15.5 L HEMATOCRIT (test code = HCT) 27.8 % 36.0-46.0 L MEAN CELL VOLUME (test code = MCV) 89.4 fL 80-98 N MEAN CELL HGB (test code = MCH) 27.0 picogram 27.0-33.0 N MEAN CELL HGB CONCETRATION (test code = MCHC) 30.2 gram/dL 33.0-36. 0 L RED CELL DISTRIBUTION WIDTH (test code = RDW) 18.4 % 11.6-16. 2 H RED CELL DISTRIBUTION WIDTH SD (test code = RDW-SD) 59.8 fL 37 .0-51.0 H PLATELET COUNT (test code = PLT) 36 K/mm3 150-450 LL RESULT VERIFIED BY REPEAT ANALYSISCritical results verified and read back by Nurse? Y NEUTROPHIL % (test code = NT%) 55.5 % 39.0-69.0 N IMMATURE GRANULOCYTE % (test code = IG%) 1.0 % 0.0-5.0 N LYMPHOCYTE % (test code = LY%) 35.0 % 25.0-55.0 N MONOCYTE % (test code = MO%) 6.5 % 0.0-10.0 N EOSINOPHIL % (test code = EO%) 1.5 % 0.0-5.0 N BASOPHIL % (test code = BA%) 0.5 % 0.0-1.0 N NUCLEATED RBC % (test code = NRBC%) 0.0 % 0-0 N NEUTROPHIL # (test code = NT#) 4.54 K/mm3 1.8-7.7 N IMMATURE GRANULOCYTE # (test code = IG#) 0.08 x10 3/uL 0-0.03 H LYMPHOCYTE # (test code = LY#) 2.86 K/mm3 1.0-5.0 N MONOCYTE # (test code = MO#) 0.53 K/mm3 0-0.8 N EOSINOPHIL # (test code = EO#) 0.12 K/mm3 0.0-0.5 N BASOPHIL # (test code = BA#) 0.04 K/mm3 0.0-0.2 N NUCLEATED RBC # (test code = NRBC#) 0.00 K/mm3 0.0-0.1 N MANUAL DIFF REQUIRED (test code = MDIFF) NO, ONLY SCAN NEEDED SEE NOTE [id number] 13:24:00* Test Item Value Reference Range Interpretation Comments STAIN ACCEPTABILITY (test code = STN ACCEPTABLE) CABOT RINGS (test code = CAB) MORPHOLOGY COMMENT (test code = MOC) PLATELET ESTIMATE (test code = PLTEST) PLATELET MORPHOLOGY (test code = PLTMORPH) SEE NOTE [id number] W/AUTO [id number] 13:24:00* Test Item Value Reference Range Interpretation Comments WHITE BLOOD CELL (test code = WBC) 8.2 K/mm3 4.5-12.5 N RED BLOOD CELL (test code = RBC) 3.11 mill/mm3 3.7-5.2 L HEMOGLOBIN (test code = HGB) 8.4 gram/dL 11.5-15.5 L HEMATOCRIT (test code = HCT) 27.8 % 36.0-46.0 L MEAN CELL VOLUME (test code = MCV) 89.4 fL 80-98 N MEAN CELL HGB (test code = MCH) 27.0 picogram 27.0-33.0 N MEAN CELL HGB CONCETRATION (test code = MCHC) 30.2 gram/dL 33.0-36. 0 L RED CELL DISTRIBUTION WIDTH (test code = RDW) 18.4 % 11.6-16. 2 H RED CELL DISTRIBUTION WIDTH SD (test code = RDW-SD) 59.8 fL 37 .0-51.0 H PLATELET COUNT (test code = PLT) 36 K/mm3 150-450 LL RESULT VERIFIED BY REPEAT ANALYSISCritical results verified and read back by Nurse? Y NEUTROPHIL % (test code = NT%) 55.5 % 39.0-69.0 N IMMATURE GRANULOCYTE % (test code = IG%) 1.0 % 0.0-5.0 N LYMPHOCYTE % (test code = LY%) 35.0 % 25.0-55.0 N MONOCYTE % (test code = MO%) 6.5 % 0.0-10.0 N EOSINOPHIL % (test code = EO%) 1.5 % 0.0-5.0 N BASOPHIL % (test code = BA%) 0.5 % 0.0-1.0 N NUCLEATED RBC % (test code = NRBC%) 0.0 % 0-0 N NEUTROPHIL # (test code = NT#) 4.54 K/mm3 1.8-7.7 N IMMATURE GRANULOCYTE # (test code = IG#) 0.08 x10 3/uL 0-0.03 H LYMPHOCYTE # (test code = LY#) 2.86 K/mm3 1.0-5.0 N MONOCYTE # (test code = MO#) 0.53 K/mm3 0-0.8 N EOSINOPHIL # (test code = EO#) 0.12 K/mm3 0.0-0.5 N BASOPHIL # (test code = BA#) 0.04 K/mm3 0.0-0.2 N NUCLEATED RBC # (test code = NRBC#) 0.00 K/mm3 0.0-0.1 N MANUAL DIFF REQUIRED (test code = MDIFF) NO, ONLY SCAN NEEDED SEE NOTE [id number] 13:24:00* Test Item Value Reference Range Interpretation Comments STAIN ACCEPTABILITY (test code = STN ACCEPTABLE) CABOT RINGS (test code = CAB) MORPHOLOGY COMMENT (test code = MOC) PLATELET ESTIMATE (test code = PLTEST) PLATELET MORPHOLOGY (test code = PLTMORPH) SEE NOTE [id number] METABOLIC [id number] 13:06:00* Test Item Value Reference Range Interpretation Comments SODIUM (test code = NA) 144 mmol/L 136-145 N POTASSIUM (test code = K) 3.5 mmol/L 3.5-5.1 N CHLORIDE (test code = CL) 109.0 mmol/L 98-107 H CARBON DIOXIDE (test code = CO2) 25.0 mmol/L 21-32 N ANION GAP (test code = GAP) 13.5 10-20 N GLUCOSE (test code = GLU) 95 mg/dL 74-106 N BLOOD UREA NITROGEN (test code = BUN) 49 mg/dL 7-18 H GLOMERULAR FILTRATION RATE (test code = GFR) 23 mL/min >=60 Estimated GFR by using Modified MDRD formula.Chronic kidney disease is defined as either kidney damageor GFR <60 mL/min/1.73 m2 for >3 months. CREATININE (test code = CREAT) 2.20 mg/dL 0.55-1.02 H Note change in reference range due to change in reagent. BUN/CREATININE RATIO (test code = BUN/CREA) 22.3 10-20 H CALCIUM (test code = CA) 8.1 mg/dL 8.5-10.1 L PT IS UNCOOPERATIVE, COME AFTER BREAKFAST AND TRY AGAIN RAMESH DARBY V.LAB.SS1 0 11/21/18 [id number] 13:00:00* Test Item Value Reference Range Interpretation Comments LACTIC ACID (test code = LACT) 1.2 mmol/L 0.4-1.9 N CBC W/AUTO [id number] 10:18:00* Test Item Value Reference Range Interpretation Comments WHITE BLOOD CELL (test code = WBC) 7.1 K/mm3 4.5-12.5 N RED BLOOD CELL (test code = RBC) 2.78 mill/mm3 3.7-5.2 L HEMOGLOBIN (test code = HGB) 7.8 gram/dL 11.5-15.5 L HEMATOCRIT (test code = HCT) 25.2 % 36.0-46.0 L MEAN CELL VOLUME (test code = MCV) 90.6 fL 80-98 N MEAN CELL HGB (test code = MCH) 28.1 picogram 27.0-33.0 N MEAN CELL HGB CONCETRATION (test code = MCHC) 31.0 gram/dL 33.0-36. 0 L RED CELL DISTRIBUTION WIDTH (test code = RDW) 18.3 % 11.6-16. 2 H RED CELL DISTRIBUTION WIDTH SD (test code = RDW-SD) 60.0 fL 37 .0-51.0 H PLATELET COUNT (test code = PLT) 37 K/mm3 150-450 LL Results called to [id number] by V.LAB.JQ 11/20/18 0619Critical results verified and read back by Nurse? Y MEAN PLATELET VOLUME (test code = MPV) 12.4 fL 6.7-11.0 H NEUTROPHIL % (test code = NT%) 51.2 % 39.0-69.0 N IMMATURE GRANULOCYTE % (test code = IG%) 0.7 % 0.0-5.0 N LYMPHOCYTE % (test code = LY%) 39.7 % 25.0-55.0 N MONOCYTE % (test code = MO%) 6.5 % 0.0-10.0 N EOSINOPHIL % (test code = EO%) 1.5 % 0.0-5.0 N BASOPHIL % (test code = BA%) 0.4 % 0.0-1.0 N NUCLEATED RBC % (test code = NRBC%) 0.0 % 0-0 N NEUTROPHIL # (test code = NT#) 3.65 K/mm3 1.8-7.7 N IMMATURE GRANULOCYTE # (test code = IG#) 0.05 x10 3/uL 0-0.03 H LYMPHOCYTE # (test code = LY#) 2.83 K/mm3 1.0-5.0 N MONOCYTE # (test code = MO#) 0.46 K/mm3 0-0.8 N EOSINOPHIL # (test code = EO#) 0.11 K/mm3 0.0-0.5 N BASOPHIL # (test code = BA#) 0.03 K/mm3 0.0-0.2 N NUCLEATED RBC # (test code = NRBC#) 0.00 K/mm3 0.0-0.1 N MANUAL DIFF REQUIRED (test code = MDIFF) NO, ONLY SCAN NEEDED DIFFERENTIAL [id number] 10:18:00* Test Item Value Reference Range Interpretation Comments STAIN ACCEPTABILITY (test code = STN ACCEPTABLE) STAIN ACCEPTABLE POLYCHROMASIA (test code = POLC) 1+ HYPOCHROMIA (test code = HYPO) 1+ POIKILOCYTOSIS (test code = POIK) 1+ ANISOCYTOSIS (test code = ANISO) 1+ PLATELET ESTIMATE (test code = PLTEST) DECREASED PLATELET MORPHOLOGY (test code = PLTMORPH) NORMAL COMPREHENSIVE METABOLIC [id number] 07:34:00* Test Item Value Reference Range Interpretation Comments SODIUM (test code = NA) 142 mmol/L 136-145 N POTASSIUM (test code = K) 3.7 mmol/L 3.5-5.1 N CHLORIDE (test code = CL) 108.0 mmol/L 98-107 H CARBON DIOXIDE (test code = CO2) 26.0 mmol/L 21-32 N ANION GAP (test code = GAP) 11.7 10-20 N GLUCOSE (test code = GLU) 74 mg/dL 74-106 N BLOOD UREA NITROGEN (test code = BUN) 48 mg/dL 7-18 H GLOMERULAR FILTRATION RATE (test code = GFR) 23 mL/min >=60 Estimated GFR by using Modified MDRD formula.Chronic kidney disease is defined as either kidney damageor GFR <60 mL/min/1.73 m2 for >3 months. CREATININE (test code = CREAT) 2.20 mg/dL 0.55-1.02 H Note change in reference range due to change in reagent. BUN/CREATININE RATIO (test code = BUN/CREA) 21.8 10-20 H TOTAL PROTEIN (test code = PROT) 5.1 gram/dL 6.4-8.2 L ALBUMIN (test code = ALB) 1.2 g/dL 3.4-5.0 L GLOBULIN (test code = GLOB) 3.9 gram/dL 2.7-4.2 N ALBUMIN/GLOBULIN RATIO (test code = A/G) 0.3 0.75-1.50 L CALCIUM (test code = CA) 7.6 mg/dL 8.5-10.1 L BILIRUBIN TOTAL (test code = BILT) 2.40 mg/dL 0.0-1.0 H SGOT/AST (test code = AST) 74 IUnit/L 15-37 H SGPT/ALT (test code = ALT) 32 IUnit/L 12-78 N ALKALINE PHOSPHATASE TOTAL (test code = ALKP) 465 IUnit/L 45-117 H Note change in reference range due to change in reagent. URIC [id number] 07:34:00* Test Item Value Reference Range Interpretation Comments URIC ACID (test code = URIC) 10.1 mg/dL 2.6-7.2 H PARATHYROID HORMONE [id number] 07:34:00* Test Item Value Reference Range Interpretation Comments PARATHYROID HORMONE INTACT (test code = PARAI) 115.30 pgram/mL 8.4- 88 H CBC W/AUTO [id number] 06:20:00* Test Item Value Reference Range Interpretation Comments WHITE BLOOD CELL (test code = WBC) 7.1 K/mm3 4.5-12.5 N RED BLOOD CELL (test code = RBC) 2.78 mill/mm3 3.7-5.2 L HEMOGLOBIN (test code = HGB) 7.8 gram/dL 11.5-15.5 L HEMATOCRIT (test code = HCT) 25.2 % 36.0-46.0 L MEAN CELL VOLUME (test code = MCV) 90.6 fL 80-98 N MEAN CELL HGB (test code = MCH) 28.1 picogram 27.0-33.0 N MEAN CELL HGB CONCETRATION (test code = MCHC) 31.0 gram/dL 33.0-36. 0 L RED CELL DISTRIBUTION WIDTH (test code = RDW) 18.3 % 11.6-16. 2 H RED CELL DISTRIBUTION WIDTH SD (test code = RDW-SD) 60.0 fL 37 .0-51.0 H PLATELET COUNT (test code = PLT) 37 K/mm3 150-450 LL Results called to [id number] by MARIUM 11/20/18 0619Critical results verified and read back by Nurse? Y MEAN PLATELET VOLUME (test code = MPV) 12.4 fL 6.7-11.0 H NEUTROPHIL % (test code = NT%) 51.2 % 39.0-69.0 N IMMATURE GRANULOCYTE % (test code = IG%) 0.7 % 0.0-5.0 N LYMPHOCYTE % (test code = LY%) 39.7 % 25.0-55.0 N MONOCYTE % (test code = MO%) 6.5 % 0.0-10.0 N EOSINOPHIL % (test code = EO%) 1.5 % 0.0-5.0 N BASOPHIL % (test code = BA%) 0.4 % 0.0-1.0 N NUCLEATED RBC % (test code = NRBC%) 0.0 % 0-0 N NEUTROPHIL # (test code = NT#) 3.65 K/mm3 1.8-7.7 N IMMATURE GRANULOCYTE # (test code = IG#) 0.05 x10 3/uL 0-0.03 H LYMPHOCYTE # (test code = LY#) 2.83 K/mm3 1.0-5.0 N MONOCYTE # (test code = MO#) 0.46 K/mm3 0-0.8 N EOSINOPHIL # (test code = EO#) 0.11 K/mm3 0.0-0.5 N BASOPHIL # (test code = BA#) 0.03 K/mm3 0.0-0.2 N NUCLEATED RBC # (test code = NRBC#) 0.00 K/mm3 0.0-0.1 N MANUAL DIFF REQUIRED (test code = MDIFF) NO, ONLY SCAN NEEDED DIFFERENTIAL [id number] 06:20:00* Test Item Value Reference Range Interpretation Comments STAIN ACCEPTABILITY (test code = STN ACCEPTABLE) CABOT RINGS (test code = CAB) MORPHOLOGY COMMENT (test code = MOC) PLATELET ESTIMATE (test code = PLTEST) PLATELET MORPHOLOGY (test code = PLTMORPH) CBC W/AUTO [id number] 06:20:00* Test Item Value Reference Range Interpretation Comments WHITE BLOOD CELL (test code = WBC) 7.1 K/mm3 4.5-12.5 N RED BLOOD CELL (test code = RBC) 2.78 mill/mm3 3.7-5.2 L HEMOGLOBIN (test code = HGB) 7.8 gram/dL 11.5-15.5 L HEMATOCRIT (test code = HCT) 25.2 % 36.0-46.0 L MEAN CELL VOLUME (test code = MCV) 90.6 fL 80-98 N MEAN CELL HGB (test code = MCH) 28.1 picogram 27.0-33.0 N MEAN CELL HGB CONCETRATION (test code = MCHC) 31.0 gram/dL 33.0-36. 0 L RED CELL DISTRIBUTION WIDTH (test code = RDW) 18.3 % 11.6-16. 2 H RED CELL DISTRIBUTION WIDTH SD (test code = RDW-SD) 60.0 fL 37 .0-51.0 H PLATELET COUNT (test code = PLT) 37 K/mm3 150-450 LL Results called to [id number] by V.LAB.ISRA 11/20/18 0619Critical results verified and read back by Nurse? Y MEAN PLATELET VOLUME (test code = MPV) 12.4 fL 6.7-11.0 H NEUTROPHIL % (test code = NT%) 51.2 % 39.0-69.0 N IMMATURE GRANULOCYTE % (test code = IG%) 0.7 % 0.0-5.0 N LYMPHOCYTE % (test code = LY%) 39.7 % 25.0-55.0 N MONOCYTE % (test code = MO%) 6.5 % 0.0-10.0 N EOSINOPHIL % (test code = EO%) 1.5 % 0.0-5.0 N BASOPHIL % (test code = BA%) 0.4 % 0.0-1.0 N NUCLEATED RBC % (test code = NRBC%) 0.0 % 0-0 N NEUTROPHIL # (test code = NT#) 3.65 K/mm3 1.8-7.7 N IMMATURE GRANULOCYTE # (test code = IG#) 0.05 x10 3/uL 0-0.03 H LYMPHOCYTE # (test code = LY#) 2.83 K/mm3 1.0-5.0 N MONOCYTE # (test code = MO#) 0.46 K/mm3 0-0.8 N EOSINOPHIL # (test code = EO#) 0.11 K/mm3 0.0-0.5 N BASOPHIL # (test code = BA#) 0.03 K/mm3 0.0-0.2 N NUCLEATED RBC # (test code = NRBC#) 0.00 K/mm3 0.0-0.1 N MANUAL DIFF REQUIRED (test code = MDIFF) NO, ONLY SCAN NEEDED DIFFERENTIAL [id number] 06:20:00* Test Item Value Reference Range Interpretation Comments STAIN ACCEPTABILITY (test code = STN ACCEPTABLE) MORPHOLOGY COMMENT (test code = MOC) PLATELET ESTIMATE (test code = PLTEST) PLATELET MORPHOLOGY (test code = PLTMORPH) CBC W/AUTO [id number] 06:20:00* Test Item Value Reference Range Interpretation Comments WHITE BLOOD CELL (test code = WBC) 7.1 K/mm3 4.5-12.5 N RED BLOOD CELL (test code = RBC) 2.78 mill/mm3 3.7-5.2 L HEMOGLOBIN (test code = HGB) 7.8 gram/dL 11.5-15.5 L HEMATOCRIT (test code = HCT) 25.2 % 36.0-46.0 L MEAN CELL VOLUME (test code = MCV) 90.6 fL 80-98 N MEAN CELL HGB (test code = MCH) 28.1 picogram 27.0-33.0 N MEAN CELL HGB CONCETRATION (test code = MCHC) 31.0 gram/dL 33.0-36. 0 L RED CELL DISTRIBUTION WIDTH (test code = RDW) 18.3 % 11.6-16. 2 H RED CELL DISTRIBUTION WIDTH SD (test code = RDW-SD) 60.0 fL 37 .0-51.0 H PLATELET COUNT (test code = PLT) 37 K/mm3 150-450 LL Results called to [id number] by MARIUM 11/20/18 0619Critical results verified and read back by Nurse? Y MEAN PLATELET VOLUME (test code = MPV) 12.4 fL 6.7-11.0 H NEUTROPHIL % (test code = NT%) 51.2 % 39.0-69.0 N IMMATURE GRANULOCYTE % (test code = IG%) 0.7 % 0.0-5.0 N LYMPHOCYTE % (test code = LY%) 39.7 % 25.0-55.0 N MONOCYTE % (test code = MO%) 6.5 % 0.0-10.0 N EOSINOPHIL % (test code = EO%) 1.5 % 0.0-5.0 N BASOPHIL % (test code = BA%) 0.4 % 0.0-1.0 N NUCLEATED RBC % (test code = NRBC%) 0.0 % 0-0 N NEUTROPHIL # (test code = NT#) 3.65 K/mm3 1.8-7.7 N IMMATURE GRANULOCYTE # (test code = IG#) 0.05 x10 3/uL 0-0.03 H LYMPHOCYTE # (test code = LY#) 2.83 K/mm3 1.0-5.0 N MONOCYTE # (test code = MO#) 0.46 K/mm3 0-0.8 N EOSINOPHIL # (test code = EO#) 0.11 K/mm3 0.0-0.5 N BASOPHIL # (test code = BA#) 0.03 K/mm3 0.0-0.2 N NUCLEATED RBC # (test code = NRBC#) 0.00 K/mm3 0.0-0.1 N MANUAL DIFF REQUIRED (test code = MDIFF) NO, ONLY SCAN NEEDED DIFFERENTIAL [id number] 06:20:00* Test Item Value Reference Range Interpretation Comments STAIN ACCEPTABILITY (test code = STN ACCEPTABLE) MORPHOLOGY COMMENT (test code = MOC) PLATELET ESTIMATE (test code = PLTEST) PLATELET MORPHOLOGY (test code = PLTMORPH) CBC W/AUTO [id number] 06:19:00* Test Item Value Reference Range Interpretation Comments WHITE BLOOD CELL (test code = WBC) 7.1 K/mm3 4.5-12.5 N RED BLOOD CELL (test code = RBC) 2.78 mill/mm3 3.7-5.2 L HEMOGLOBIN (test code = HGB) 7.8 gram/dL 11.5-15.5 L HEMATOCRIT (test code = HCT) 25.2 % 36.0-46.0 L MEAN CELL VOLUME (test code = MCV) 90.6 fL 80-98 N MEAN CELL HGB (test code = MCH) 28.1 picogram 27.0-33.0 N MEAN CELL HGB CONCETRATION (test code = MCHC) 31.0 gram/dL 33.0-36. 0 L RED CELL DISTRIBUTION WIDTH (test code = RDW) 18.3 % 11.6-16. 2 H RED CELL DISTRIBUTION WIDTH SD (test code = RDW-SD) 60.0 fL 37 .0-51.0 H PLATELET COUNT (test code = PLT) 37 K/mm3 150-450 LL Results called to [id number] by MARIUM 11/20/18 0619Critical results verified and read back by Nurse? Y MEAN PLATELET VOLUME (test code = MPV) 12.4 fL 6.7-11.0 H NEUTROPHIL % (test code = NT%) 51.2 % 39.0-69.0 N IMMATURE GRANULOCYTE % (test code = IG%) 0.7 % 0.0-5.0 N LYMPHOCYTE % (test code = LY%) 39.7 % 25.0-55.0 N MONOCYTE % (test code = MO%) 6.5 % 0.0-10.0 N EOSINOPHIL % (test code = EO%) 1.5 % 0.0-5.0 N BASOPHIL % (test code = BA%) 0.4 % 0.0-1.0 N NUCLEATED RBC % (test code = NRBC%) 0.0 % 0-0 N NEUTROPHIL # (test code = NT#) 3.65 K/mm3 1.8-7.7 N IMMATURE GRANULOCYTE # (test code = IG#) 0.05 x10 3/uL 0-0.03 H LYMPHOCYTE # (test code = LY#) 2.83 K/mm3 1.0-5.0 N MONOCYTE # (test code = MO#) 0.46 K/mm3 0-0.8 N EOSINOPHIL # (test code = EO#) 0.11 K/mm3 0.0-0.5 N BASOPHIL # (test code = BA#) 0.03 K/mm3 0.0-0.2 N NUCLEATED RBC # (test code = NRBC#) 0.00 K/mm3 0.0-0.1 N MANUAL DIFF REQUIRED (test code = MDIFF) NO, ONLY SCAN NEEDED DIFFERENTIAL [id number] 06:19:00* Test Item Value Reference Range Interpretation Comments STAIN ACCEPTABILITY (test code = STN ACCEPTABLE) CABOT RINGS (test code = CAB) MORPHOLOGY COMMENT (test code = MOC) PLATELET ESTIMATE (test code = PLTEST) PLATELET MORPHOLOGY (test code = PLTMORPH) COMPREHENSIVE METABOLIC [id number] 06:10:00* Test Item Value Reference Range Interpretation Comments SODIUM (test code = NA) 142 mmol/L 136-145 N POTASSIUM (test code = K) 3.7 mmol/L 3.5-5.1 N CHLORIDE (test code = CL) 108.0 mmol/L 98-107 H CARBON DIOXIDE (test code = CO2) 26.0 mmol/L 21-32 N ANION GAP (test code = GAP) 11.7 10-20 N GLUCOSE (test code = GLU) 74 mg/dL 74-106 N BLOOD UREA NITROGEN (test code = BUN) 48 mg/dL 7-18 H GLOMERULAR FILTRATION RATE (test code = GFR) 23 mL/min >=60 Estimated GFR by using Modified MDRD formula.Chronic kidney disease is defined as either kidney damageor GFR <60 mL/min/1.73 m2 for >3 months. CREATININE (test code = CREAT) 2.20 mg/dL 0.55-1.02 H Note change in reference range due to change in reagent. BUN/CREATININE RATIO (test code = BUN/CREA) 21.8 10-20 H TOTAL PROTEIN (test code = PROT) 5.1 gram/dL 6.4-8.2 L ALBUMIN (test code = ALB) 1.2 g/dL 3.4-5.0 L GLOBULIN (test code = GLOB) 3.9 gram/dL 2.7-4.2 N ALBUMIN/GLOBULIN RATIO (test code = A/G) 0.3 0.75-1.50 L CALCIUM (test code = CA) 7.6 mg/dL 8.5-10.1 L BILIRUBIN TOTAL (test code = BILT) 2.40 mg/dL 0.0-1.0 H SGOT/AST (test code = AST) 74 IUnit/L 15-37 H SGPT/ALT (test code = ALT) 32 IUnit/L 12-78 N ALKALINE PHOSPHATASE TOTAL (test code = ALKP) 465 IUnit/L 45-117 H Note change in reference range due to change in reagent. URIC [id number] 06:10:00* Test Item Value Reference Range Interpretation Comments URIC ACID (test code = URIC) 10.1 mg/dL 2.6-7.2 H PARATHYROID HORMONE [id number] 06:10:00* Test Item Value Reference Range Interpretation Comments PARATHYROID HORMONE INTACT (test code = PARAI) pgram/mL 8.4-88 COMPREHENSIVE METABOLIC [id number] 05:54:00* Test Item Value Reference Range Interpretation Comments SODIUM (test code = NA) 142 mmol/L 136-145 N POTASSIUM (test code = K) 3.7 mmol/L 3.5-5.1 N CHLORIDE (test code = CL) 108.0 mmol/L 98-107 H CARBON DIOXIDE (test code = CO2) mmol/L 21-32 ANION GAP (test code = GAP) 10-20 GLUCOSE (test code = GLU) mg/dL 74-106 BLOOD UREA NITROGEN (test code = BUN) mg/dL 7-18 GLOMERULAR FILTRATION RATE (test code = GFR) mL/min >=60 CREATININE (test code = CREAT) mg/dL 0.55-1.02 BUN/CREATININE RATIO (test code = BUN/CREA) 10-20 TOTAL PROTEIN (test code = PROT) gram/dL 6.4-8.2 ALBUMIN (test code = ALB) g/dL 3.4-5.0 GLOBULIN (test code = GLOB) gram/dL 2.7-4.2 ALBUMIN/GLOBULIN RATIO (test code = A/G) 0.75-1.50 CALCIUM (test code = CA) mg/dL 8.5-10.1 BILIRUBIN TOTAL (test code = BILT) mg/dL 0.0-1.0 SGOT/AST (test code = AST) IUnit/L 15-37 SGPT/ALT (test code = ALT) IUnit/L 12-78 ALKALINE PHOSPHATASE TOTAL (test code = ALKP) IUnit/L 45-117 URIC [id number] 05:54:00* Test Item Value Reference Range Interpretation Comments URIC ACID (test code = URIC) mg/dL 2.6-7.2 PARATHYROID HORMONE [id number] 05:54:00* Test Item Value Reference Range Interpretation Comments PARATHYROID HORMONE INTACT (test code = PARAI) pgram/mL 8.4-88 LACTIC [id number] 12:17:00* Test Item Value Reference Range Interpretation Comments LACTIC ACID (test code = LACT) 2.0 mmol/L 0.4-1.9 H Results called to [id number] by V.[email or web address].LDB 11/19/18 1211Critical results verified and read back by Nurse? Y PT REFUSED RN LALA NOTIFIED [email or web address].[email or web address] 11/19/18 0857LACTIC [id number] 08:52:00 * Test Item Value Reference Range Interpretation Comments LACTIC ACID (test code = LACT) 2.0 mmol/L 0.4-1.9 H Results called to [id number] by V.[email or web address].LDB 11/19/18 0851Critical results verified and read back by Nurse? Y URINALYSIS [id number] 06:34:00* Test Item Value Reference Range Interpretation Comments UA COLOR (test code = COLU) YELLOW YELLOW UA APPEARANCE (test code = APPU) Cloudy CLEAR A UA GLUCOSE DIPSTICK (test code = DGLUU) 50 (Trace) mg/dL NEGATIVE A UA BILIRUBIN DIPSTICK (test code = BILU) NEGATIVE mg/dL NEGATIVE UA KETONE DIPSTICK (test code = KETU) NEGATIVE mg/dL NEGATIVE UA SPECIFIC GRAVITY (test code = SGU) 1.011 1.001-1.035 UA BLOOD DIPSTICK (test code = JONO) >1.0 mg/dL NEGATIVE UA PH DIPSTICK (test code = AHMET) 6.5 5.0-8.0 UA PROTEIN DIPSTICK (test code = PROU) 200 (2+) mg/dL NEGATIVE A UA UROBILINIOGEN DIPSTICK (test code = URO) Normal mg/dL NEGATIVE UA NITRITE DIPSTICK (test code = IFEOMA) NEGATIVE NEGATIVE UA LEUKOCYTE ESTERASE W REFLEX (test code = LEUUR) 500 Franki/u L (2+) Franki/uL NEGATIVE A UA WBC (test code = WBCU) >200 per HPF 0-5 A UA RBC (test code = RBCU) >200 #/HPF 0-5 UA EPITHELIAL CELLS (test code = EPIU) FEW per HPF FEW UA BACTERIA (test code = BACU) FEW #/HPF NONE A UA CALCIUM OXALATE CRYSTALS (test code = CAOXU) MODERATE #/HPF NONE A UA MUCUS (test code = MUCU) FEW #/LPF FEW Urine Source? Clean CatchLACTIC [id number] 03:49:00* Test Item Value Reference Range Interpretation Comments LACTIC ACID (test code = LACT) 2.4 mmol/L 0.4-1.9 HH Results called to [id number] by [email or web address] 11/19/18 0343Critical results verified and read back by Nurse? Y LACTIC [id number] 00:18:00* Test Item Value Reference Range Interpretation Comments LACTIC ACID (test code = LACT) 3.2 mmol/L 0.4-1.9 HH Results called to [id number] by V.[email or web address] 11/19/18 0017Critical results verified and read back by Nurse? Y CBC W/AUTO [id number] 00:01:00* Test Item Value Reference Range Interpretation Comments WHITE BLOOD CELL (test code = WBC) 10.8 K/mm3 4.5-12.5 N RED BLOOD CELL (test code = RBC) 3.36 mill/mm3 3.7-5.2 L HEMOGLOBIN (test code = HGB) 9.3 gram/dL 11.5-15.5 L HEMATOCRIT (test code = HCT) 30.2 % 36.0-46.0 L MEAN CELL VOLUME (test code = MCV) 89.9 fL 80-98 N MEAN CELL HGB (test code = MCH) 27.7 picogram 27.0-33.0 N MEAN CELL HGB CONCETRATION (test code = MCHC) 30.8 gram/dL 33.0-36. 0 L RED CELL DISTRIBUTION WIDTH (test code = RDW) 18.8 % 11.6-16. 2 H RED CELL DISTRIBUTION WIDTH SD (test code = RDW-SD) 60.7 fL 37 .0-51.0 H PLATELET COUNT (test code = PLT) 63 K/mm3 150-450 L MEAN PLATELET VOLUME (test code = MPV) 12.2 fL 6.7-11.0 H NEUTROPHIL % (test code = NT%) 59.7 % 39.0-69.0 N IMMATURE GRANULOCYTE % (test code = IG%) 0.7 % 0.0-5.0 N LYMPHOCYTE % (test code = LY%) 32.6 % 25.0-55.0 N MONOCYTE % (test code = MO%) 5.4 % 0.0-10.0 N EOSINOPHIL % (test code = EO%) 1.4 % 0.0-5.0 N BASOPHIL % (test code = BA%) 0.2 % 0.0-1.0 N NUCLEATED RBC % (test code = NRBC%) 0.0 % 0-0 N NEUTROPHIL # (test code = NT#) 6.43 K/mm3 1.8-7.7 N IMMATURE GRANULOCYTE # (test code = IG#) 0.08 x10 3/uL 0-0.03 H LYMPHOCYTE # (test code = LY#) 3.51 K/mm3 1.0-5.0 N MONOCYTE # (test code = MO#) 0.58 K/mm3 0-0.8 N EOSINOPHIL # (test code = EO#) 0.15 K/mm3 0.0-0.5 N BASOPHIL # (test code = BA#) 0.02 K/mm3 0.0-0.2 N NUCLEATED RBC # (test code = NRBC#) 0.00 K/mm3 0.0-0.1 N MANUAL DIFF REQUIRED (test code = MDIFF) NO, ONLY SCAN NEEDED DIFFERENTIAL [id number] 00:01:00* Test Item Value Reference Range Interpretation Comments STAIN ACCEPTABILITY (test code = STN ACCEPTABLE) STAIN ACCEPTABLE ANISOCYTOSIS (test code = ANISO) 2+ MACROCYTOSIS (test code = MACR) 2+ PLATELET ESTIMATE (test code = PLTEST) DECREASED PLATELET MORPHOLOGY (test code = PLTMORPH) SIZE VARIABLE PROCALCITONIN (PCT)2018-11-18 23:56:00* Test Item Value Reference Range Interpretation Comments PROCALCITONIN (PCT) (test code = PROCAL) 0.54 ng/ml Concentration Interpretation (ng/mL) <0.51 Sepsis [...] into account the patients history. BASIC METABOLIC [id number] 23:36:00* Test Item Value Reference Range Interpretation Comments SODIUM (test code = NA) 142 mmol/L 136-145 N POTASSIUM (test code = K) 3.7 mmol/L 3.5-5.1 N CHLORIDE (test code = CL) 105.0 mmol/L 98-107 N CARBON DIOXIDE (test code = CO2) 29.0 mmol/L 21-32 N ANION GAP (test code = GAP) 11.7 10-20 N GLUCOSE (test code = GLU) 116 mg/dL 74-106 H BLOOD UREA NITROGEN (test code = BUN) 52 mg/dL 7-18 H GLOMERULAR FILTRATION RATE (test code = GFR) 21 mL/min >=60 Estimated GFR by using Modified MDRD formula.Chronic kidney disease is defined as either kidney damageor GFR <60 mL/min/1.73 m2 for >3 months. CREATININE (test code = CREAT) 2.40 mg/dL 0.55-1.02 H Note change in reference range due to change in reagent. BUN/CREATININE RATIO (test code = BUN/CREA) 21.7 10-20 H CALCIUM (test code = CA) 8.2 mg/dL 8.5-10.1 L HEPATIC FUNCTION [id number] 23:36:00* Test Item Value Reference Range Interpretation Comments TOTAL PROTEIN (test code = PROT) 5.8 gram/dL 6.4-8.2 L ALBUMIN (test code = ALB) 1.4 g/dL 3.4-5.0 L GLOBULIN (test code = GLOB) 4.4 gram/dL 2.7-4.2 H ALBUMIN/GLOBULIN RATIO (test code = A/G) 0.3 0.75-1.50 L BILIRUBIN TOTAL (test code = BILT) 2.40 mg/dL 0.0-1.0 H BILIRUBIN DIRECT (test code = BILD) 1.95 mg/dL 0.0-0.20 H SGOT/AST (test code = AST) 44 IUnit/L 15-37 H SGPT/ALT (test code = ALT) 28 IUnit/L 12-78 N ALKALINE PHOSPHATASE TOTAL (test code = ALKP) 301 IUnit/L 45-117 H Note change in reference range due to change in reagent. [id number] 23:36:00* Test Item Value Reference Range Interpretation Comments TROPONIN-I (test code = TROPI) <0.015 ng/mL 0-0.045 N BASIC METABOLIC [id number] 23:26:00* Test Item Value Reference Range Interpretation Comments SODIUM (test code = NA) 142 mmol/L 136-145 N POTASSIUM (test code = K) 3.7 mmol/L 3.5-5.1 N CHLORIDE (test code = CL) 105.0 mmol/L 98-107 N CARBON DIOXIDE (test code = CO2) mmol/L 21-32 ANION GAP (test code = GAP) 10-20 GLUCOSE (test code = GLU) mg/dL 74-106 BLOOD UREA NITROGEN (test code = BUN) mg/dL 7-18 GLOMERULAR FILTRATION RATE (test code = GFR) mL/min >=60 CREATININE (test code = CREAT) mg/dL 0.55-1.02 BUN/CREATININE RATIO (test code = BUN/CREA) 10-20 CALCIUM (test code = CA) mg/dL 8.5-10.1 HEPATIC FUNCTION [id number] 23:26:00* Test Item Value Reference Range Interpretation Comments TOTAL PROTEIN (test code = PROT) gram/dL 6.4-8.2 ALBUMIN (test code = ALB) g/dL 3.4-5.0 GLOBULIN (test code = GLOB) gram/dL 2.7-4.2 ALBUMIN/GLOBULIN RATIO (test code = A/G) 0.75-1.50 BILIRUBIN TOTAL (test code = BILT) mg/dL 0.0-1.0 BILIRUBIN DIRECT (test code = BILD) mg/dL 0.0-0.20 SGOT/AST (test code = AST) IUnit/L 15-37 SGPT/ALT (test code = ALT) IUnit/L 12-78 ALKALINE PHOSPHATASE TOTAL (test code = ALKP) IUnit/L 45-117 [id number] 23:26:00* Test Item Value Reference Range Interpretation Comments TROPONIN-I (test code = TROPI) ng/mL 0-0.045 POC LACTIC [id number] 23:20:00* Test Item Value Reference Range Interpretation Comments POC LACTIC ACID (test code = POCLAC) 3.16 MMOL/L 0.4-2.2 H CBC W/AUTO [id number] 23:20:00* Test Item Value Reference Range Interpretation Comments WHITE BLOOD CELL (test code = WBC) 10.8 K/mm3 4.5-12.5 N RED BLOOD CELL (test code = RBC) 3.36 mill/mm3 3.7-5.2 L HEMOGLOBIN (test code = HGB) 9.3 gram/dL 11.5-15.5 L HEMATOCRIT (test code = HCT) 30.2 % 36.0-46.0 L MEAN CELL VOLUME (test code = MCV) 89.9 fL 80-98 N MEAN CELL HGB (test code = MCH) 27.7 picogram 27.0-33.0 N MEAN CELL HGB CONCETRATION (test code = MCHC) 30.8 gram/dL 33.0-36. 0 L RED CELL DISTRIBUTION WIDTH (test code = RDW) 18.8 % 11.6-16. 2 H RED CELL DISTRIBUTION WIDTH SD (test code = RDW-SD) 60.7 fL 37 .0-51.0 H PLATELET COUNT (test code = PLT) 63 K/mm3 150-450 L MEAN PLATELET VOLUME (test code = MPV) 12.2 fL 6.7-11.0 H NEUTROPHIL % (test code = NT%) 59.7 % 39.0-69.0 N IMMATURE GRANULOCYTE % (test code = IG%) 0.7 % 0.0-5.0 N LYMPHOCYTE % (test code = LY%) 32.6 % 25.0-55.0 N MONOCYTE % (test code = MO%) 5.4 % 0.0-10.0 N EOSINOPHIL % (test code = EO%) 1.4 % 0.0-5.0 N BASOPHIL % (test code = BA%) 0.2 % 0.0-1.0 N NUCLEATED RBC % (test code = NRBC%) 0.0 % 0-0 N NEUTROPHIL # (test code = NT#) 6.43 K/mm3 1.8-7.7 N IMMATURE GRANULOCYTE # (test code = IG#) 0.08 x10 3/uL 0-0.03 H LYMPHOCYTE # (test code = LY#) 3.51 K/mm3 1.0-5.0 N MONOCYTE # (test code = MO#) 0.58 K/mm3 0-0.8 N EOSINOPHIL # (test code = EO#) 0.15 K/mm3 0.0-0.5 N BASOPHIL # (test code = BA#) 0.02 K/mm3 0.0-0.2 N NUCLEATED RBC # (test code = NRBC#) 0.00 K/mm3 0.0-0.1 N MANUAL DIFF REQUIRED (test code = MDIFF) NO, ONLY SCAN NEEDED DIFFERENTIAL [id number] 23:20:00* Test Item Value Reference Range Interpretation Comments STAIN ACCEPTABILITY (test code = STN ACCEPTABLE) CABOT RINGS (test code = CAB) MORPHOLOGY COMMENT (test code = MOC) PLATELET ESTIMATE (test code = PLTEST) PLATELET MORPHOLOGY (test code = PLTMORPH) CBC W/AUTO [id number] 23:20:00* Test Item Value Reference Range Interpretation Comments WHITE BLOOD CELL (test code = WBC) 10.8 K/mm3 4.5-12.5 N RED BLOOD CELL (test code = RBC) 3.36 mill/mm3 3.7-5.2 L HEMOGLOBIN (test code = HGB) 9.3 gram/dL 11.5-15.5 L HEMATOCRIT (test code = HCT) 30.2 % 36.0-46.0 L MEAN CELL VOLUME (test code = MCV) 89.9 fL 80-98 N MEAN CELL HGB (test code = MCH) 27.7 picogram 27.0-33.0 N MEAN CELL HGB CONCETRATION (test code = MCHC) 30.8 gram/dL 33.0-36. 0 L RED CELL DISTRIBUTION WIDTH (test code = RDW) 18.8 % 11.6-16. 2 H RED CELL DISTRIBUTION WIDTH SD (test code = RDW-SD) 60.7 fL 37 .0-51.0 H PLATELET COUNT (test code = PLT) 63 K/mm3 150-450 L MEAN PLATELET VOLUME (test code = MPV) 12.2 fL 6.7-11.0 H NEUTROPHIL % (test code = NT%) 59.7 % 39.0-69.0 N IMMATURE GRANULOCYTE % (test code = IG%) 0.7 % 0.0-5.0 N LYMPHOCYTE % (test code = LY%) 32.6 % 25.0-55.0 N MONOCYTE % (test code = MO%) 5.4 % 0.0-10.0 N EOSINOPHIL % (test code = EO%) 1.4 % 0.0-5.0 N BASOPHIL % (test code = BA%) 0.2 % 0.0-1.0 N NUCLEATED RBC % (test code = NRBC%) 0.0 % 0-0 N NEUTROPHIL # (test code = NT#) 6.43 K/mm3 1.8-7.7 N IMMATURE GRANULOCYTE # (test code = IG#) 0.08 x10 3/uL 0-0.03 H LYMPHOCYTE # (test code = LY#) 3.51 K/mm3 1.0-5.0 N MONOCYTE # (test code = MO#) 0.58 K/mm3 0-0.8 N EOSINOPHIL # (test code = EO#) 0.15 K/mm3 0.0-0.5 N BASOPHIL # (test code = BA#) 0.02 K/mm3 0.0-0.2 N NUCLEATED RBC # (test code = NRBC#) 0.00 K/mm3 0.0-0.1 N MANUAL DIFF REQUIRED (test code = MDIFF) NO, ONLY SCAN NEEDED DIFFERENTIAL [id number] 23:20:00* Test Item Value Reference Range Interpretation Comments STAIN ACCEPTABILITY (test code = STN ACCEPTABLE) CABOT RINGS (test code = CAB) MORPHOLOGY COMMENT (test code = MOC) PLATELET ESTIMATE (test code = PLTEST) PLATELET MORPHOLOGY (test code = PLTMORPH) CBC W/AUTO [id number] 23:20:00* Test Item Value Reference Range Interpretation Comments WHITE BLOOD CELL (test code = WBC) 10.8 K/mm3 4.5-12.5 N RED BLOOD CELL (test code = RBC) 3.36 mill/mm3 3.7-5.2 L HEMOGLOBIN (test code = HGB) 9.3 gram/dL 11.5-15.5 L HEMATOCRIT (test code = HCT) 30.2 % 36.0-46.0 L MEAN CELL VOLUME (test code = MCV) 89.9 fL 80-98 N MEAN CELL HGB (test code = MCH) 27.7 picogram 27.0-33.0 N MEAN CELL HGB CONCETRATION (test code = MCHC) 30.8 gram/dL 33.0-36. 0 L RED CELL DISTRIBUTION WIDTH (test code = RDW) 18.8 % 11.6-16. 2 H RED CELL DISTRIBUTION WIDTH SD (test code = RDW-SD) 60.7 fL 37 .0-51.0 H PLATELET COUNT (test code = PLT) 63 K/mm3 150-450 L MEAN PLATELET VOLUME (test code = MPV) 12.2 fL 6.7-11.0 H NEUTROPHIL % (test code = NT%) 59.7 % 39.0-69.0 N IMMATURE GRANULOCYTE % (test code = IG%) 0.7 % 0.0-5.0 N LYMPHOCYTE % (test code = LY%) 32.6 % 25.0-55.0 N MONOCYTE % (test code = MO%) 5.4 % 0.0-10.0 N EOSINOPHIL % (test code = EO%) 1.4 % 0.0-5.0 N BASOPHIL % (test code = BA%) 0.2 % 0.0-1.0 N NUCLEATED RBC % (test code = NRBC%) 0.0 % 0-0 N NEUTROPHIL # (test code = NT#) 6.43 K/mm3 1.8-7.7 N IMMATURE GRANULOCYTE # (test code = IG#) 0.08 x10 3/uL 0-0.03 H LYMPHOCYTE # (test code = LY#) 3.51 K/mm3 1.0-5.0 N MONOCYTE # (test code = MO#) 0.58 K/mm3 0-0.8 N EOSINOPHIL # (test code = EO#) 0.15 K/mm3 0.0-0.5 N BASOPHIL # (test code = BA#) 0.02 K/mm3 0.0-0.2 N NUCLEATED RBC # (test code = NRBC#) 0.00 K/mm3 0.0-0.1 N MANUAL DIFF REQUIRED (test code = MDIFF) NO, ONLY SCAN NEEDED DIFFERENTIAL [id number] 23:20:00* Test Item Value Reference Range Interpretation Comments STAIN ACCEPTABILITY (test code = STN ACCEPTABLE) MORPHOLOGY COMMENT (test code = MOC) PLATELET ESTIMATE (test code = PLTEST) PLATELET MORPHOLOGY (test code = PLTMORPH) CBC W/AUTO [id number] 23:20:00* Test Item Value Reference Range Interpretation Comments WHITE BLOOD CELL (test code = WBC) 10.8 K/mm3 4.5-12.5 N RED BLOOD CELL (test code = RBC) 3.36 mill/mm3 3.7-5.2 L HEMOGLOBIN (test code = HGB) 9.3 gram/dL 11.5-15.5 L HEMATOCRIT (test code = HCT) 30.2 % 36.0-46.0 L MEAN CELL VOLUME (test code = MCV) 89.9 fL 80-98 N MEAN CELL HGB (test code = MCH) 27.7 picogram 27.0-33.0 N MEAN CELL HGB CONCETRATION (test code = MCHC) 30.8 gram/dL 33.0-36. 0 L RED CELL DISTRIBUTION WIDTH (test code = RDW) 18.8 % 11.6-16. 2 H RED CELL DISTRIBUTION WIDTH SD (test code = RDW-SD) 60.7 fL 37 .0-51.0 H PLATELET COUNT (test code = PLT) 63 K/mm3 150-450 L MEAN PLATELET VOLUME (test code = MPV) 12.2 fL 6.7-11.0 H NEUTROPHIL % (test code = NT%) 59.7 % 39.0-69.0 N IMMATURE GRANULOCYTE % (test code = IG%) 0.7 % 0.0-5.0 N LYMPHOCYTE % (test code = LY%) 32.6 % 25.0-55.0 N MONOCYTE % (test code = MO%) 5.4 % 0.0-10.0 N EOSINOPHIL % (test code = EO%) 1.4 % 0.0-5.0 N BASOPHIL % (test code = BA%) 0.2 % 0.0-1.0 N NUCLEATED RBC % (test code = NRBC%) 0.0 % 0-0 N NEUTROPHIL # (test code = NT#) 6.43 K/mm3 1.8-7.7 N IMMATURE GRANULOCYTE # (test code = IG#) 0.08 x10 3/uL 0-0.03 H LYMPHOCYTE # (test code = LY#) 3.51 K/mm3 1.0-5.0 N MONOCYTE # (test code = MO#) 0.58 K/mm3 0-0.8 N EOSINOPHIL # (test code = EO#) 0.15 K/mm3 0.0-0.5 N BASOPHIL # (test code = BA#) 0.02 K/mm3 0.0-0.2 N NUCLEATED RBC # (test code = NRBC#) 0.00 K/mm3 0.0-0.1 N MANUAL DIFF REQUIRED (test code = MDIFF) NO, ONLY SCAN NEEDED DIFFERENTIAL [id number] 23:20:00* Test Item Value Reference Range Interpretation Comments STAIN ACCEPTABILITY (test code = STN ACCEPTABLE) CABOT RINGS (test code = CAB) MORPHOLOGY COMMENT (test code = MOC) PLATELET ESTIMATE (test code = PLTEST) PLATELET MORPHOLOGY (test code = PLTMORPH) - XR CHEST 1 [id number] 22:38:00 FAX: Jessica Kumar MD [phone] [place]: B St: REG Name: SIOBHAN ROBERTS [facility] : [birth year] Age/S: 53/F [address] [facility] Unit #: [id number] Loc: V.[place] [address] Phys: Jessica Kumar MD Acct: [id number] Dis Date: Status: REG ER PHONE #: [phone] Exam Date: 11/18/20182227 FAX #: [phone] Reason: CODE SEPSIS EXAMS: CPT CODE: [id number] XR CHEST 1 V 31110 REASON FOR EXAM: CODE SEPS IS EXAM ORDER DATE: 11/18/2018 9:33 PM Ordering M.D.: Jessica Kumar MD PROCEDURE: - XR CHEST 1 V COM PARISON: FINDINGS: Portable AP frontal view of the chest obtained at 10:28 PM shows clear lungs without evidence of consolidation. There is no evidence of effusion. The heart size is minimally enlarged. Pulmonary vasculatures are minimally congested. IMPRESSION: Minimal cardiomegaly and pulmonary venous congestion at 7418 Reported and obi d by: Jewel Reyez M.D. CC: Jessica Kumar MD Technologist: RT KIANA(R); Katja Bhat( R) Trnscrd Date/Time/By: 11/18/2018 (1) : By: Mark monsalve Print D/T: S: 11/18/2018 (8824) PAGE 1 Signed Report CBC W/AUTO [id number] 15:44:00* Test Item Value Reference Range Interpretation Comments WHITE BLOOD CELL (test code = WBC) 12.8 K/mm3 4.5-12.5 H RED BLOOD CELL (test code = RBC) 3.16 mill/mm3 3.7-5.2 L HEMOGLOBIN (test code = HGB) 9.0 gram/dL 11.5-15.5 L HEMATOCRIT (test code = HCT) 28.4 % 36.0-46.0 L MEAN CELL VOLUME (test code = MCV) 89.9 fL 80-98 N MEAN CELL HGB (test code = MCH) 28.5 picogram 27.0-33.0 N MEAN CELL HGB CONCETRATION (test code = MCHC) 31.7 gram/dL 33.0-36. 0 L RED CELL DISTRIBUTION WIDTH (test code = RDW) 19.0 % 11.6-16. 2 H RED CELL DISTRIBUTION WIDTH SD (test code = RDW-SD) 62.2 fL 37 .0-51.0 H PLATELET COUNT (test code = PLT) 68 K/mm3 150-450 L MEAN PLATELET VOLUME (test code = MPV) 12.5 fL 6.7-11.0 H NEUTROPHIL % (test code = NT%) 63.6 % 39.0-69.0 N IMMATURE GRANULOCYTE % (test code = IG%) 0.8 % 0.0-5.0 N LYMPHOCYTE % (test code = LY%) 29.9 % 25.0-55.0 N MONOCYTE % (test code = MO%) 5.3 % 0.0-10.0 N EOSINOPHIL % (test code = EO%) 0.2 % 0.0-5.0 N BASOPHIL % (test code = BA%) 0.2 % 0.0-1.0 N NUCLEATED RBC % (test code = NRBC%) 0.0 % 0-0 N NEUTROPHIL # (test code = NT#) 8.12 K/mm3 1.8-7.7 H IMMATURE GRANULOCYTE # (test code = IG#) 0.10 x10 3/uL 0-0.03 H LYMPHOCYTE # (test code = LY#) 3.82 K/mm3 1.0-5.0 N MONOCYTE # (test code = MO#) 0.67 K/mm3 0-0.8 N EOSINOPHIL # (test code = EO#) 0.02 K/mm3 0.0-0.5 N BASOPHIL # (test code = BA#) 0.03 K/mm3 0.0-0.2 N NUCLEATED RBC # (test code = NRBC#) 0.00 K/mm3 0.0-0.1 N MANUAL DIFF REQUIRED (test code = MDIFF) NO, ONLY SCAN NEEDED DIFFERENTIAL [id number] 15:44:00* Test Item Value Reference Range Interpretation Comments STAIN ACCEPTABILITY (test code = STN ACCEPTABLE) STAIN ACCEPTABLE TARGET CELLS (test code = TGT) 1+ PLATELET ESTIMATE (test code = PLTEST) DECREASED PLATELET MORPHOLOGY (test code = PLTMORPH) SIZE VARIABLE [id number] 14:27:00 RUN DATE: 11/18/18 [facility] Lab PAGE 1 RUN TIME: 1427 Specimen Inqui ry RUN USER: INTERFACE PATIENT: SIOBHAN BARBOSA ACCT #: [id number] LOC: ROBYN U #: [id number] AGE/SX: 53/F ROOM: 2072 RE10/24/18REG DR: Shirin Knott MD : 63 BED: A DIS: STATUS: ADM IN TLOC: SPEC #: [id number] RECD: 11/17/18 STATUS: JAC REQ #: [id number] RADHA: 11/17/18- ERICA DR: Leticia Luna ENTERED: 11/17/18 SP TYPE: CALCULI OTHR DR: Jay Bae i, MD,Tomy Acosta,Stan Maldonado,Norma Weiner MD,Kim Drake,Salman A MD YulianaDawit millan MD,Fanny Black,Armando Kelly MDORDERED: GROSS COPIES TO: Jay Hughes MD [address] [place] [address] Tomy Mckeon MD [address] [place] [address] Stan Acosta O [address] [place] [address] Jemima farfanRadhabeverley Arzola [address] [place] [address] [place] [address] [facility], [address] [place] [address] Kim Dill MD [address] [facility] [address] [place], [place] [id number] [phone] CONTINUED ON NEXT PAGE RUN DATE: 11/18/18 [facility] - Lab PAGE 2 RUN TIME: 1427 Specimen Inquiry RUN USER: INTERFACE SPEC #: [id number] PATIENT: FAMILIASIOBHAN SEPULVEDA #[id number] (Continued) COPIES TO: (Continued) Kaila Luna MD [address] [place] [address] Fabiana Drake MD [address], [address] [place] [address] Yonis Bridges MD [address] [facility] [address] [place], [place] [id number] Fanny Fernandes MD [address] [place] [address] Vilma Black MD [address] [place] [address] Armando Stoner [address] [place] [address] PROCEDURES: GROSS (11/18/18-1028) TISSUES: URINARY BLADDER, N OS - STONES CLINICAL HISTORY COLLECTION DATE: 11/17/18 NEPHROLITH IASIS, ASCITES FINAL DIAGNOSIS Urinary bladder stones, removal: CALCULOUS MATERIAL (GROSS IDENTIFICATION) SUBMITTED FOR CHEMICAL ANALYS IS CONTINUED ON NEXT PAGE R UN DATE: 11/18/18 [facility] - Lab PAGE 3 RUN TIME: 1427 Specimen Inquiry RUN USER: INTERFACE SPEC #: [id number] PATIENT: SIOBHAN BARBOSA #[id number] (Continued) FINAL DIAGNOSIS (C ontinued) RRB/sm D 16345 MACROSCOPIC The specimen is received without fixative in a container labeled with the patient's name, and identified as "bladder stones". It consists of fragments of dark brown calcu lous material measuring 0.6 X 0.5 X 0.3 cm in aggregate. The specimen is submi tted for chemical analysis. GROSS PERFORMED AT [facility] [address] [place] [phone] Signed SIGNATURE ON FILE Ernie Davenport MD 11/18/18 1427 END OF REPORT CBC W/AUTO [id number] 11:28:00* Test Item Value Reference Range Interpretation Comments WHITE BLOOD CELL (test code = WBC) 12.8 K/mm3 4.5-12.5 H RED BLOOD CELL (test code = RBC) 3.16 mill/mm3 3.7-5.2 L HEMOGLOBIN (test code = HGB) 9.0 gram/dL 11.5-15.5 L HEMATOCRIT (test code = HCT) 28.4 % 36.0-46.0 L MEAN CELL VOLUME (test code = MCV) 89.9 fL 80-98 N MEAN CELL HGB (test code = MCH) 28.5 picogram 27.0-33.0 N MEAN CELL HGB CONCETRATION (test code = MCHC) 31.7 gram/dL 33.0-36. 0 L RED CELL DISTRIBUTION WIDTH (test code = RDW) 19.0 % 11.6-16. 2 H RED CELL DISTRIBUTION WIDTH SD (test code = RDW-SD) 62.2 fL 37 .0-51.0 H PLATELET COUNT (test code = PLT) 68 K/mm3 150-450 L MEAN PLATELET VOLUME (test code = MPV) 12.5 fL 6.7-11.0 H NEUTROPHIL % (test code = NT%) 63.6 % 39.0-69.0 N IMMATURE GRANULOCYTE % (test code = IG%) 0.8 % 0.0-5.0 N LYMPHOCYTE % (test code = LY%) 29.9 % 25.0-55.0 N MONOCYTE % (test code = MO%) 5.3 % 0.0-10.0 N EOSINOPHIL % (test code = EO%) 0.2 % 0.0-5.0 N BASOPHIL % (test code = BA%) 0.2 % 0.0-1.0 N NUCLEATED RBC % (test code = NRBC%) 0.0 % 0-0 N NEUTROPHIL # (test code = NT#) 8.12 K/mm3 1.8-7.7 H IMMATURE GRANULOCYTE # (test code = IG#) 0.10 x10 3/uL 0-0.03 H LYMPHOCYTE # (test code = LY#) 3.82 K/mm3 1.0-5.0 N MONOCYTE # (test code = MO#) 0.67 K/mm3 0-0.8 N EOSINOPHIL # (test code = EO#) 0.02 K/mm3 0.0-0.5 N BASOPHIL # (test code = BA#) 0.03 K/mm3 0.0-0.2 N NUCLEATED RBC # (test code = NRBC#) 0.00 K/mm3 0.0-0.1 N MANUAL DIFF REQUIRED (test code = MDIFF) NO, ONLY SCAN NEEDED DIFFERENTIAL [id number] 11:28:00* Test Item Value Reference Range Interpretation Comments STAIN ACCEPTABILITY (test code = STN ACCEPTABLE) CABOT RINGS (test code = CAB) MORPHOLOGY COMMENT (test code = MOC) PLATELET ESTIMATE (test code = PLTEST) PLATELET MORPHOLOGY (test code = PLTMORPH) CBC W/AUTO [id number] 11:28:00* Test Item Value Reference Range Interpretation Comments WHITE BLOOD CELL (test code = WBC) 12.8 K/mm3 4.5-12.5 H RED BLOOD CELL (test code = RBC) 3.16 mill/mm3 3.7-5.2 L HEMOGLOBIN (test code = HGB) 9.0 gram/dL 11.5-15.5 L HEMATOCRIT (test code = HCT) 28.4 % 36.0-46.0 L MEAN CELL VOLUME (test code = MCV) 89.9 fL 80-98 N MEAN CELL HGB (test code = MCH) 28.5 picogram 27.0-33.0 N MEAN CELL HGB CONCETRATION (test code = MCHC) 31.7 gram/dL 33.0-36. 0 L RED CELL DISTRIBUTION WIDTH (test code = RDW) 19.0 % 11.6-16. 2 H RED CELL DISTRIBUTION WIDTH SD (test code = RDW-SD) 62.2 fL 37 .0-51.0 H PLATELET COUNT (test code = PLT) 68 K/mm3 150-450 L MEAN PLATELET VOLUME (test code = MPV) 12.5 fL 6.7-11.0 H NEUTROPHIL % (test code = NT%) 63.6 % 39.0-69.0 N IMMATURE GRANULOCYTE % (test code = IG%) 0.8 % 0.0-5.0 N LYMPHOCYTE % (test code = LY%) 29.9 % 25.0-55.0 N MONOCYTE % (test code = MO%) 5.3 % 0.0-10.0 N EOSINOPHIL % (test code = EO%) 0.2 % 0.0-5.0 N BASOPHIL % (test code = BA%) 0.2 % 0.0-1.0 N NUCLEATED RBC % (test code = NRBC%) 0.0 % 0-0 N NEUTROPHIL # (test code = NT#) 8.12 K/mm3 1.8-7.7 H IMMATURE GRANULOCYTE # (test code = IG#) 0.10 x10 3/uL 0-0.03 H LYMPHOCYTE # (test code = LY#) 3.82 K/mm3 1.0-5.0 N MONOCYTE # (test code = MO#) 0.67 K/mm3 0-0.8 N EOSINOPHIL # (test code = EO#) 0.02 K/mm3 0.0-0.5 N BASOPHIL # (test code = BA#) 0.03 K/mm3 0.0-0.2 N NUCLEATED RBC # (test code = NRBC#) 0.00 K/mm3 0.0-0.1 N MANUAL DIFF REQUIRED (test code = MDIFF) NO, ONLY SCAN NEEDED DIFFERENTIAL [id number] 11:28:00* Test Item Value Reference Range Interpretation Comments STAIN ACCEPTABILITY (test code = STN ACCEPTABLE) CABOT RINGS (test code = CAB) MORPHOLOGY COMMENT (test code = MOC) PLATELET ESTIMATE (test code = PLTEST) PLATELET MORPHOLOGY (test code = PLTMORPH) CBC W/AUTO [id number] 11:28:00* Test Item Value Reference Range Interpretation Comments WHITE BLOOD CELL (test code = WBC) 12.8 K/mm3 4.5-12.5 H RED BLOOD CELL (test code = RBC) 3.16 mill/mm3 3.7-5.2 L HEMOGLOBIN (test code = HGB) 9.0 gram/dL 11.5-15.5 L HEMATOCRIT (test code = HCT) 28.4 % 36.0-46.0 L MEAN CELL VOLUME (test code = MCV) 89.9 fL 80-98 N MEAN CELL HGB (test code = MCH) 28.5 picogram 27.0-33.0 N MEAN CELL HGB CONCETRATION (test code = MCHC) 31.7 gram/dL 33.0-36. 0 L RED CELL DISTRIBUTION WIDTH (test code = RDW) 19.0 % 11.6-16. 2 H RED CELL DISTRIBUTION WIDTH SD (test code = RDW-SD) 62.2 fL 37 .0-51.0 H PLATELET COUNT (test code = PLT) 68 K/mm3 150-450 L MEAN PLATELET VOLUME (test code = MPV) 12.5 fL 6.7-11.0 H NEUTROPHIL % (test code = NT%) 63.6 % 39.0-69.0 N IMMATURE GRANULOCYTE % (test code = IG%) 0.8 % 0.0-5.0 N LYMPHOCYTE % (test code = LY%) 29.9 % 25.0-55.0 N MONOCYTE % (test code = MO%) 5.3 % 0.0-10.0 N EOSINOPHIL % (test code = EO%) 0.2 % 0.0-5.0 N BASOPHIL % (test code = BA%) 0.2 % 0.0-1.0 N NUCLEATED RBC % (test code = NRBC%) 0.0 % 0-0 N NEUTROPHIL # (test code = NT#) 8.12 K/mm3 1.8-7.7 H IMMATURE GRANULOCYTE # (test code = IG#) 0.10 x10 3/uL 0-0.03 H LYMPHOCYTE # (test code = LY#) 3.82 K/mm3 1.0-5.0 N MONOCYTE # (test code = MO#) 0.67 K/mm3 0-0.8 N EOSINOPHIL # (test code = EO#) 0.02 K/mm3 0.0-0.5 N BASOPHIL # (test code = BA#) 0.03 K/mm3 0.0-0.2 N NUCLEATED RBC # (test code = NRBC#) 0.00 K/mm3 0.0-0.1 N MANUAL DIFF REQUIRED (test code = MDIFF) NO, ONLY SCAN NEEDED DIFFERENTIAL [id number] 11:28:00* Test Item Value Reference Range Interpretation Comments STAIN ACCEPTABILITY (test code = STN ACCEPTABLE) MORPHOLOGY COMMENT (test code = MOC) PLATELET ESTIMATE (test code = PLTEST) PLATELET MORPHOLOGY (test code = PLTMORPH) CBC W/AUTO [id number] 11:28:00* Test Item Value Reference Range Interpretation Comments WHITE BLOOD CELL (test code = WBC) 12.8 K/mm3 4.5-12.5 H RED BLOOD CELL (test code = RBC) 3.16 mill/mm3 3.7-5.2 L HEMOGLOBIN (test code = HGB) 9.0 gram/dL 11.5-15.5 L HEMATOCRIT (test code = HCT) 28.4 % 36.0-46.0 L MEAN CELL VOLUME (test code = MCV) 89.9 fL 80-98 N MEAN CELL HGB (test code = MCH) 28.5 picogram 27.0-33.0 N MEAN CELL HGB CONCETRATION (test code = MCHC) 31.7 gram/dL 33.0-36. 0 L RED CELL DISTRIBUTION WIDTH (test code = RDW) 19.0 % 11.6-16. 2 H RED CELL DISTRIBUTION WIDTH SD (test code = RDW-SD) 62.2 fL 37 .0-51.0 H PLATELET COUNT (test code = PLT) 68 K/mm3 150-450 L MEAN PLATELET VOLUME (test code = MPV) 12.5 fL 6.7-11.0 H NEUTROPHIL % (test code = NT%) 63.6 % 39.0-69.0 N IMMATURE GRANULOCYTE % (test code = IG%) 0.8 % 0.0-5.0 N LYMPHOCYTE % (test code = LY%) 29.9 % 25.0-55.0 N MONOCYTE % (test code = MO%) 5.3 % 0.0-10.0 N EOSINOPHIL % (test code = EO%) 0.2 % 0.0-5.0 N BASOPHIL % (test code = BA%) 0.2 % 0.0-1.0 N NUCLEATED RBC % (test code = NRBC%) 0.0 % 0-0 N NEUTROPHIL # (test code = NT#) 8.12 K/mm3 1.8-7.7 H IMMATURE GRANULOCYTE # (test code = IG#) 0.10 x10 3/uL 0-0.03 H LYMPHOCYTE # (test code = LY#) 3.82 K/mm3 1.0-5.0 N MONOCYTE # (test code = MO#) 0.67 K/mm3 0-0.8 N EOSINOPHIL # (test code = EO#) 0.02 K/mm3 0.0-0.5 N BASOPHIL # (test code = BA#) 0.03 K/mm3 0.0-0.2 N NUCLEATED RBC # (test code = NRBC#) 0.00 K/mm3 0.0-0.1 N MANUAL DIFF REQUIRED (test code = MDIFF) NO, ONLY SCAN NEEDED DIFFERENTIAL [id number] 11:28:00* Test Item Value Reference Range Interpretation Comments STAIN ACCEPTABILITY (test code = STN ACCEPTABLE) CABOT RINGS (test code = CAB) MORPHOLOGY COMMENT (test code = MOC) PLATELET ESTIMATE (test code = PLTEST) PLATELET MORPHOLOGY (test code = PLTMORPH) BASIC METABOLIC [id number] 09:02:00* Test Item Value Reference Range Interpretation Comments SODIUM (test code = NA) 144 mmol/L 136-145 N POTASSIUM (test code = K) 4.7 mmol/L 3.5-5.1 N CHLORIDE (test code = CL) 109.0 mmol/L 98-107 H CARBON DIOXIDE (test code = CO2) 26.0 mmol/L 21-32 N ANION GAP (test code = GAP) 13.7 10-20 N GLUCOSE (test code = GLU) 139 mg/dL 74-106 H BLOOD UREA NITROGEN (test code = BUN) 55 mg/dL 7-18 H GLOMERULAR FILTRATION RATE (test code = GFR) 21 mL/min >=60 Estimated GFR by using Modified MDRD formula.Chronic kidney disease is defined as either kidney damageor GFR <60 mL/min/1.73 m2 for >3 months. CREATININE (test code = CREAT) 2.40 mg/dL 0.55-1.02 H Note change in reference range due to change in reagent. BUN/CREATININE RATIO (test code = BUN/CREA) 22.9 10-20 H CALCIUM (test code = CA) 8.5 mg/dL 8.5-10.1 N BASIC METABOLIC [id number] 08:49:00* Test Item Value Reference Range Interpretation Comments SODIUM (test code = NA) 144 mmol/L 136-145 N POTASSIUM (test code = K) 4.7 mmol/L 3.5-5.1 N CHLORIDE (test code = CL) 109.0 mmol/L 98-107 H CARBON DIOXIDE (test code = CO2) mmol/L 21-32 ANION GAP (test code = GAP) 10-20 GLUCOSE (test code = GLU) mg/dL 74-106 BLOOD UREA NITROGEN (test code = BUN) mg/dL 7-18 GLOMERULAR FILTRATION RATE (test code = GFR) mL/min >=60 CREATININE (test code = CREAT) mg/dL 0.55-1.02 BUN/CREATININE RATIO (test code = BUN/CREA) 10-20 CALCIUM (test code = CA) mg/dL 8.5-10.1 CBC W/MANUAL [id number] 15:45:00* Test Item Value Reference Range Interpretation Comments WHITE BLOOD CELL (test code = WBC) 8.2 K/mm3 4.5-12.5 N RED BLOOD CELL (test code = RBC) 3.12 mill/mm3 3.7-5.2 L HEMOGLOBIN (test code = HGB) 8.6 gram/dL 11.5-15.5 L HEMATOCRIT (test code = HCT) 28.7 % 36.0-46.0 L MEAN CELL VOLUME (test code = MCV) 92.0 fL 80-98 N MEAN CELL HGB (test code = MCH) 27.6 picogram 27.0-33.0 N MEAN CELL HGB CONCETRATION (test code = MCHC) 30.0 gram/dL 33.0-36. 0 L RED CELL DISTRIBUTION WIDTH (test code = RDW) 19.5 % 11.6-16. 2 H RED CELL DISTRIBUTION WIDTH SD (test code = RDW-SD) 64.6 fL 37 .0-51.0 H PLATELET COUNT (test code = PLT) 71 K/mm3 150-450 L RESULT VERIFIED BY REPEAT ANALYSIS MEAN PLATELET VOLUME (test code = MPV) 11.4 fL 6.7-11.0 H IMMATURE GRANULOCYTE % (test code = IG%) 0.9 % 0.0-5.0 N NUCLEATED RBC % (test code = NRBC%) 0.0 % 0-0 N NEUTROPHIL # (test code = NT#) 3.26 K/mm3 1.8-7.7 N IMMATURE GRANULOCYTE # (test code = IG#) 0.07 x10 3/uL 0-0.03 H LYMPHOCYTE # (test code = LY#) 3.89 K/mm3 1.0-5.0 N MONOCYTE # (test code = MO#) 0.59 K/mm3 0-0.8 N EOSINOPHIL # (test code = EO#) 0.33 K/mm3 0.0-0.5 N BASOPHIL # (test code = BA#) 0.06 K/mm3 0.0-0.2 N NUCLEATED RBC # (test code = NRBC#) 0.00 K/mm3 0.0-0.1 N MANUAL DIFF REQUIRED (test code = MDIFF) YES STAIN ACCEPTABILITY (test code = STN ACCEPTABLE) STAIN ACCEPTABLE TOTAL CELLS COUNTED (test code = TCC) 100 #CELLS SEGMENTED NEUTROPHILS (test code = SEG) 38 % 39-69 L BAND NEUTROPHIL (test code = BAND) 13 % 0-10 H LYMPHOCYTE (test code = LYMPH) 32 % 25-55 N REACTIVE LYMPH (test code = RELYMPH) 2 % MONOCYTE (test code = MON) 14 % 0-10 H EOSINOPHIL (test code = EOS) 1 % 0.0-5.0 N HYPOCHROMIA (test code = HYPO) 1+ ROULEAUX (test code = ROU) MODERATE PLATELET ESTIMATE (test code = PLTEST) ADEQUATE PLATELET MORPHOLOGY (test code = PLTMORPH) NORMAL PATIENT WANTS PHLEB TO COME BACK AFTER BREAKFAST [facility] [id number] 11:03:00* Test Item Value Reference Range Interpretation Comments SODIUM (test code = NA) 145 mmol/L 136-145 N POTASSIUM (test code = K) 3.0 mmol/L 3.5-5.1 L CHLORIDE (test code = CL) 108.0 mmol/L 98-107 H CARBON DIOXIDE (test code = CO2) 28.0 mmol/L 21-32 N ANION GAP (test code = GAP) 12.0 10-20 N GLUCOSE (test code = GLU) 75 mg/dL 74-106 N BLOOD UREA NITROGEN (test code = BUN) 57 mg/dL 7-18 H GLOMERULAR FILTRATION RATE (test code = GFR) 22 mL/min >=60 Estimated GFR by using Modified MDRD formula.Chronic kidney disease is defined as either kidney damageor GFR <60 mL/min/1.73 m2 for >3 months. CREATININE (test code = CREAT) 2.30 mg/dL 0.55-1.02 H Note change in reference range due to change in reagent. BUN/CREATININE RATIO (test code = BUN/CREA) 24.8 10-20 H CALCIUM (test code = CA) 8.3 mg/dL 8.5-10.1 L PATIENT WANTS PHLEB TO COME BACK AFTER BREAKFAST V.LAB.11/17/18 0627[facility] [id number] 10:58:00* Test Item Value Reference Range Interpretation Comments SODIUM (test code = NA) 145 mmol/L 136-145 N POTASSIUM (test code = K) 3.0 mmol/L 3.5-5.1 L CHLORIDE (test code = CL) 108.0 mmol/L 98-107 H CARBON DIOXIDE (test code = CO2) mmol/L 21-32 ANION GAP (test code = GAP) 10-20 GLUCOSE (test code = GLU) mg/dL 74-106 BLOOD UREA NITROGEN (test code = BUN) mg/dL 7-18 GLOMERULAR FILTRATION RATE (test code = GFR) mL/min >=60 CREATININE (test code = CREAT) mg/dL 0.55-1.02 BUN/CREATININE RATIO (test code = BUN/CREA) 10-20 CALCIUM (test code = CA) 8.3 mg/dL 8.5-10.1 L PATIENT WANTS PHLEB TO COME BACK AFTER BREAKFAST V.LAB.RI11/17/18 0627CB W/MANUAL [id number] 10:56:00* Test Item Value Reference Range Interpretation Comments WHITE BLOOD CELL (test code = WBC) 8.2 K/mm3 4.5-12.5 N RED BLOOD CELL (test code = RBC) 3.12 mill/mm3 3.7-5.2 L HEMOGLOBIN (test code = HGB) 8.6 gram/dL 11.5-15.5 L HEMATOCRIT (test code = HCT) 28.7 % 36.0-46.0 L MEAN CELL VOLUME (test code = MCV) 92.0 fL 80-98 N MEAN CELL HGB (test code = MCH) 27.6 picogram 27.0-33.0 N MEAN CELL HGB CONCETRATION (test code = MCHC) 30.0 gram/dL 33.0-36. 0 L RED CELL DISTRIBUTION WIDTH (test code = RDW) 19.5 % 11.6-16. 2 H RED CELL DISTRIBUTION WIDTH SD (test code = RDW-SD) 64.6 fL 37 .0-51.0 H PLATELET COUNT (test code = PLT) 71 K/mm3 150-450 L RESULT VERIFIED BY REPEAT ANALYSIS MEAN PLATELET VOLUME (test code = MPV) 11.4 fL 6.7-11.0 H IMMATURE GRANULOCYTE % (test code = IG%) 0.9 % 0.0-5.0 N NUCLEATED RBC % (test code = NRBC%) 0.0 % 0-0 N NEUTROPHIL # (test code = NT#) 3.26 K/mm3 1.8-7.7 N IMMATURE GRANULOCYTE # (test code = IG#) 0.07 x10 3/uL 0-0.03 H LYMPHOCYTE # (test code = LY#) 3.89 K/mm3 1.0-5.0 N MONOCYTE # (test code = MO#) 0.59 K/mm3 0-0.8 N EOSINOPHIL # (test code = EO#) 0.33 K/mm3 0.0-0.5 N BASOPHIL # (test code = BA#) 0.06 K/mm3 0.0-0.2 N NUCLEATED RBC # (test code = NRBC#) 0.00 K/mm3 0.0-0.1 N MANUAL DIFF REQUIRED (test code = MDIFF) YES STAIN ACCEPTABILITY (test code = STN ACCEPTABLE) TOTAL CELLS COUNTED (test code = TCC) #CELLS SEGMENTED NEUTROPHILS (test code = SEG) % 39-69 LYMPHOCYTE (test code = LYMPH) % 25-55 MONOCYTE (test code = MON) % 0-10 MORPHOLOGY COMMENT (test code = MOC) PLATELET ESTIMATE (test code = PLTEST) PLATELET MORPHOLOGY (test code = PLTMORPH) PATIENT WANTS PHLEB TO COME BACK AFTER BREAKFAST V.LAB.11/17/18 0628CBC W/MANUAL [id number] 10:53:00* Test Item Value Reference Range Interpretation Comments WHITE BLOOD CELL (test code = WBC) 8.2 K/mm3 4.5-12.5 N RED BLOOD CELL (test code = RBC) 3.12 mill/mm3 3.7-5.2 L HEMOGLOBIN (test code = HGB) 8.6 gram/dL 11.5-15.5 L HEMATOCRIT (test code = HCT) 28.7 % 36.0-46.0 L MEAN CELL VOLUME (test code = MCV) 92.0 fL 80-98 N MEAN CELL HGB (test code = MCH) 27.6 picogram 27.0-33.0 N MEAN CELL HGB CONCETRATION (test code = MCHC) 30.0 gram/dL 33.0-36. 0 L RED CELL DISTRIBUTION WIDTH (test code = RDW) 19.5 % 11.6-16. 2 H RED CELL DISTRIBUTION WIDTH SD (test code = RDW-SD) 64.6 fL 37 .0-51.0 H PLATELET COUNT (test code = PLT) 71 K/mm3 150-450 L RESULT VERIFIED BY REPEAT ANALYSIS MEAN PLATELET VOLUME (test code = MPV) 11.4 fL 6.7-11.0 H IMMATURE GRANULOCYTE % (test code = IG%) 0.9 % 0.0-5.0 N NUCLEATED RBC % (test code = NRBC%) 0.0 % 0-0 N NEUTROPHIL # (test code = NT#) 3.26 K/mm3 1.8-7.7 N IMMATURE GRANULOCYTE # (test code = IG#) 0.07 x10 3/uL 0-0.03 H LYMPHOCYTE # (test code = LY#) 3.89 K/mm3 1.0-5.0 N MONOCYTE # (test code = MO#) 0.59 K/mm3 0-0.8 N EOSINOPHIL # (test code = EO#) 0.33 K/mm3 0.0-0.5 N BASOPHIL # (test code = BA#) 0.06 K/mm3 0.0-0.2 N NUCLEATED RBC # (test code = NRBC#) 0.00 K/mm3 0.0-0.1 N MANUAL DIFF REQUIRED (test code = MDIFF) YES STAIN ACCEPTABILITY (test code = STN ACCEPTABLE) TOTAL CELLS COUNTED (test code = TCC) #CELLS SEGMENTED NEUTROPHILS (test code = SEG) % 39-69 LYMPHOCYTE (test code = LYMPH) % 25-55 MONOCYTE (test code = MON) % 0-10 EOSINOPHIL (test code = EOS) % 0.0-5.0 CABOT RINGS (test code = CAB) MORPHOLOGY COMMENT (test code = MOC) PLATELET ESTIMATE (test code = PLTEST) PLATELET MORPHOLOGY (test code = PLTMORPH) PATIENT WANTS PHLEB TO COME BACK AFTER BREAKFAST V.LAB.11/17/18 0628CBC W/MANUAL [id number] 10:53:00* Test Item Value Reference Range Interpretation Comments WHITE BLOOD CELL (test code = WBC) 8.2 K/mm3 4.5-12.5 N RED BLOOD CELL (test code = RBC) 3.12 mill/mm3 3.7-5.2 L HEMOGLOBIN (test code = HGB) 8.6 gram/dL 11.5-15.5 L HEMATOCRIT (test code = HCT) 28.7 % 36.0-46.0 L MEAN CELL VOLUME (test code = MCV) 92.0 fL 80-98 N MEAN CELL HGB (test code = MCH) 27.6 picogram 27.0-33.0 N MEAN CELL HGB CONCETRATION (test code = MCHC) 30.0 gram/dL 33.0-36. 0 L RED CELL DISTRIBUTION WIDTH (test code = RDW) 19.5 % 11.6-16. 2 H RED CELL DISTRIBUTION WIDTH SD (test code = RDW-SD) 64.6 fL 37 .0-51.0 H PLATELET COUNT (test code = PLT) 71 K/mm3 150-450 L RESULT VERIFIED BY REPEAT ANALYSIS MEAN PLATELET VOLUME (test code = MPV) 11.4 fL 6.7-11.0 H IMMATURE GRANULOCYTE % (test code = IG%) 0.9 % 0.0-5.0 N NUCLEATED RBC % (test code = NRBC%) 0.0 % 0-0 N NEUTROPHIL # (test code = NT#) 3.26 K/mm3 1.8-7.7 N IMMATURE GRANULOCYTE # (test code = IG#) 0.07 x10 3/uL 0-0.03 H LYMPHOCYTE # (test code = LY#) 3.89 K/mm3 1.0-5.0 N MONOCYTE # (test code = MO#) 0.59 K/mm3 0-0.8 N EOSINOPHIL # (test code = EO#) 0.33 K/mm3 0.0-0.5 N BASOPHIL # (test code = BA#) 0.06 K/mm3 0.0-0.2 N NUCLEATED RBC # (test code = NRBC#) 0.00 K/mm3 0.0-0.1 N MANUAL DIFF REQUIRED (test code = MDIFF) YES STAIN ACCEPTABILITY (test code = STN ACCEPTABLE) TOTAL CELLS COUNTED (test code = TCC) #CELLS SEGMENTED NEUTROPHILS (test code = SEG) % 39-69 LYMPHOCYTE (test code = LYMPH) % 25-55 MONOCYTE (test code = MON) % 0-10 EOSINOPHIL (test code = EOS) % 0.0-5.0 CABOT RINGS (test code = CAB) MORPHOLOGY COMMENT (test code = MOC) PLATELET ESTIMATE (test code = PLTEST) PLATELET MORPHOLOGY (test code = PLTMORPH) PATIENT WANTS PHLEB TO COME BACK AFTER BREAKFAST V.LAB.AR11/17/18 0628CBC W/MANUAL [id number] 10:53:00* Test Item Value Reference Range Interpretation Comments WHITE BLOOD CELL (test code = WBC) 8.2 K/mm3 4.5-12.5 N RED BLOOD CELL (test code = RBC) 3.12 mill/mm3 3.7-5.2 L HEMOGLOBIN (test code = HGB) 8.6 gram/dL 11.5-15.5 L HEMATOCRIT (test code = HCT) 28.7 % 36.0-46.0 L MEAN CELL VOLUME (test code = MCV) 92.0 fL 80-98 N MEAN CELL HGB (test code = MCH) 27.6 picogram 27.0-33.0 N MEAN CELL HGB CONCETRATION (test code = MCHC) 30.0 gram/dL 33.0-36. 0 L RED CELL DISTRIBUTION WIDTH (test code = RDW) 19.5 % 11.6-16. 2 H RED CELL DISTRIBUTION WIDTH SD (test code = RDW-SD) 64.6 fL 37 .0-51.0 H PLATELET COUNT (test code = PLT) 71 K/mm3 150-450 L RESULT VERIFIED BY REPEAT ANALYSIS MEAN PLATELET VOLUME (test code = MPV) 11.4 fL 6.7-11.0 H IMMATURE GRANULOCYTE % (test code = IG%) 0.9 % 0.0-5.0 N NUCLEATED RBC % (test code = NRBC%) 0.0 % 0-0 N NEUTROPHIL # (test code = NT#) 3.26 K/mm3 1.8-7.7 N IMMATURE GRANULOCYTE # (test code = IG#) 0.07 x10 3/uL 0-0.03 H LYMPHOCYTE # (test code = LY#) 3.89 K/mm3 1.0-5.0 N MONOCYTE # (test code = MO#) 0.59 K/mm3 0-0.8 N EOSINOPHIL # (test code = EO#) 0.33 K/mm3 0.0-0.5 N BASOPHIL # (test code = BA#) 0.06 K/mm3 0.0-0.2 N NUCLEATED RBC # (test code = NRBC#) 0.00 K/mm3 0.0-0.1 N MANUAL DIFF REQUIRED (test code = MDIFF) YES STAIN ACCEPTABILITY (test code = STN ACCEPTABLE) TOTAL CELLS COUNTED (test code = TCC) #CELLS SEGMENTED NEUTROPHILS (test code = SEG) % 39-69 LYMPHOCYTE (test code = LYMPH) % 25-55 MONOCYTE (test code = MON) % 0-10 EOSINOPHIL (test code = EOS) % 0.0-5.0 MORPHOLOGY COMMENT (test code = MOC) PLATELET ESTIMATE (test code = PLTEST) PLATELET MORPHOLOGY (test code = PLTMORPH) PATIENT WANTS PHLEB TO COME BACK AFTER BREAKFAST V.LAB.11/17/18 0628CBC W/MANUAL [id number] 10:53:00* Test Item Value Reference Range Interpretation Comments WHITE BLOOD CELL (test code = WBC) 8.2 K/mm3 4.5-12.5 N RED BLOOD CELL (test code = RBC) 3.12 mill/mm3 3.7-5.2 L HEMOGLOBIN (test code = HGB) 8.6 gram/dL 11.5-15.5 L HEMATOCRIT (test code = HCT) 28.7 % 36.0-46.0 L MEAN CELL VOLUME (test code = MCV) 92.0 fL 80-98 N MEAN CELL HGB (test code = MCH) 27.6 picogram 27.0-33.0 N MEAN CELL HGB CONCETRATION (test code = MCHC) 30.0 gram/dL 33.0-36. 0 L RED CELL DISTRIBUTION WIDTH (test code = RDW) 19.5 % 11.6-16. 2 H RED CELL DISTRIBUTION WIDTH SD (test code = RDW-SD) 64.6 fL 37 .0-51.0 H PLATELET COUNT (test code = PLT) 71 K/mm3 150-450 L RESULT VERIFIED BY REPEAT ANALYSIS MEAN PLATELET VOLUME (test code = MPV) 11.4 fL 6.7-11.0 H IMMATURE GRANULOCYTE % (test code = IG%) 0.9 % 0.0-5.0 N NUCLEATED RBC % (test code = NRBC%) 0.0 % 0-0 N NEUTROPHIL # (test code = NT#) 3.26 K/mm3 1.8-7.7 N IMMATURE GRANULOCYTE # (test code = IG#) 0.07 x10 3/uL 0-0.03 H LYMPHOCYTE # (test code = LY#) 3.89 K/mm3 1.0-5.0 N MONOCYTE # (test code = MO#) 0.59 K/mm3 0-0.8 N EOSINOPHIL # (test code = EO#) 0.33 K/mm3 0.0-0.5 N BASOPHIL # (test code = BA#) 0.06 K/mm3 0.0-0.2 N NUCLEATED RBC # (test code = NRBC#) 0.00 K/mm3 0.0-0.1 N MANUAL DIFF REQUIRED (test code = MDIFF) YES STAIN ACCEPTABILITY (test code = STN ACCEPTABLE) TOTAL CELLS COUNTED (test code = TCC) #CELLS SEGMENTED NEUTROPHILS (test code = SEG) % 39-69 LYMPHOCYTE (test code = LYMPH) % 25-55 MONOCYTE (test code = MON) % 0-10 EOSINOPHIL (test code = EOS) % 0.0-5.0 CABOT RINGS (test code = CAB) MORPHOLOGY COMMENT (test code = MOC) PLATELET ESTIMATE (test code = PLTEST) PLATELET MORPHOLOGY (test code = PLTMORPH) PATIENT WANTS PHLEB TO COME BACK AFTER BREAKFAST V.LAB.AR11/17/18 0628CBC W/O [id number] 17:57:00* Test Item Value Reference Range Interpretation Comments WHITE BLOOD CELL (test code = WBC) 6.2 K/mm3 4.5-12.5 N RED BLOOD CELL (test code = RBC) 3.31 mill/mm3 3.7-5.2 L HEMOGLOBIN (test code = HGB) 9.1 gram/dL 11.5-15.5 L HEMATOCRIT (test code = HCT) 29.3 % 36.0-46.0 L MEAN CELL VOLUME (test code = MCV) 88.5 fL 80-98 N MEAN CELL HGB (test code = MCH) 27.5 picogram 27.0-33.0 N MEAN CELL HGB CONCETRATION (test code = MCHC) 31.1 gram/dL 33.0-36. 0 L RED CELL DISTRIBUTION WIDTH (test code = RDW) 19.8 % 11.6-16. 2 H PLATELET COUNT (test code = PLT) 23 K/mm3 150-450 LL Results called to [id number] by V.LAB.WANNETTE 11/16/18 0705Critical results verified and read back by Nurse? Y PATHOLOGISTS [id number] 17:57:00* Test Item Value Reference Range Interpretation Comments PATHOLOGISTS FINDINGS (test code = PATH) PATH NOTES MARKED THROMBOCYTOPENIA. MILD ANEMIA WITHANISO/POILILOCYTOSIS. NO BLASTS IDENTIFIED. ERNIE CHICAS M.D.11/16/18 CBC W/O [id number] 17:56:00* Test Item Value Reference Range Interpretation Comments WHITE BLOOD CELL (test code = WBC) 6.2 K/mm3 4.5-12.5 N RED BLOOD CELL (test code = RBC) 3.31 mill/mm3 3.7-5.2 L HEMOGLOBIN (test code = HGB) 9.1 gram/dL 11.5-15.5 L HEMATOCRIT (test code = HCT) 29.3 % 36.0-46.0 L MEAN CELL VOLUME (test code = MCV) 88.5 fL 80-98 N MEAN CELL HGB (test code = MCH) 27.5 picogram 27.0-33.0 N MEAN CELL HGB CONCETRATION (test code = MCHC) 31.1 gram/dL 33.0-36. 0 L RED CELL DISTRIBUTION WIDTH (test code = RDW) 19.8 % 11.6-16. 2 H PLATELET COUNT (test code = PLT) 23 K/mm3 150-450 LL Results called to [id number] by ENMA 11/16/18 0705Critical results verified and read back by Nurse? Y PATHOLOGISTS [id number] 17:56:00* Test Item Value Reference Range Interpretation Comments PATHOLOGISTS FINDINGS (test code = PATH) PATH NOTES [id number] 15:20:00* Test Item Value Reference Range Interpretation Comments CREATININE (test code = CREAT) 2.50 mg/dL 0.55-1.02 H Note change in reference range due to change in reagent. SPECIMEN COMMENTS: peripheral stickCBC W/O [id number] 15:13:00* Test Item Value Reference Range Interpretation Comments WHITE BLOOD CELL (test code = WBC) 6.2 K/mm3 4.5-12.5 N RED BLOOD CELL (test code = RBC) 3.31 mill/mm3 3.7-5.2 L HEMOGLOBIN (test code = HGB) 9.1 gram/dL 11.5-15.5 L HEMATOCRIT (test code = HCT) 29.3 % 36.0-46.0 L MEAN CELL VOLUME (test code = MCV) 88.5 fL 80-98 N MEAN CELL HGB (test code = MCH) 27.5 picogram 27.0-33.0 N MEAN CELL HGB CONCETRATION (test code = MCHC) 31.1 gram/dL 33.0-36. 0 L RED CELL DISTRIBUTION WIDTH (test code = RDW) 19.8 % 11.6-16. 2 H PLATELET COUNT (test code = PLT) 23 K/mm3 150-450 LL Results called to [id number] by ENMA 11/16/18 0705Critical results verified and read back by Nurse? Y BASIC METABOLIC [id number] 07:29:00* Test Item Value Reference Range Interpretation Comments SODIUM (test code = NA) 148 mmol/L 136-145 H POTASSIUM (test code = K) 3.5 mmol/L 3.5-5.1 N CHLORIDE (test code = CL) 111.0 mmol/L 98-107 H CARBON DIOXIDE (test code = CO2) 26.0 mmol/L 21-32 N ANION GAP (test code = GAP) 14.5 10-20 N GLUCOSE (test code = GLU) 101 mg/dL 74-106 N BLOOD UREA NITROGEN (test code = BUN) 64 mg/dL 7-18 H GLOMERULAR FILTRATION RATE (test code = GFR) 20 mL/min >=60 Estimated GFR by using Modified MDRD formula.Chronic kidney disease is defined as either kidney damageor GFR <60 mL/min/1.73 m2 for >3 months. CREATININE (test code = CREAT) 2.50 mg/dL 0.55-1.02 H Note change in reference range due to change in reagent. BUN/CREATININE RATIO (test code = BUN/CREA) 25.6 10-20 H CALCIUM (test code = CA) 8.3 mg/dL 8.5-10.1 L THYROID STIMULATING [id number] 07:29:00* Test Item Value Reference Range Interpretation Comments THYROID STIMULATING HORMONE (test code = TSH) 9.440 uIU/mL 0.36-3.7 4 H TSH REFERENCE RANGES: EUTHYROID: 0.35 - 4.3 mIU/mL HYPO : > 5.5 mIU/mL HYPER : < 0.35 mIU/mL BASIC METABOLIC [id number] 07:09:00* Test Item Value Reference Range Interpretation Comments SODIUM (test code = NA) 148 mmol/L 136-145 H POTASSIUM (test code = K) 3.5 mmol/L 3.5-5.1 N CHLORIDE (test code = CL) 111.0 mmol/L 98-107 H CARBON DIOXIDE (test code = CO2) mmol/L 21-32 ANION GAP (test code = GAP) 10-20 GLUCOSE (test code = GLU) mg/dL 74-106 BLOOD UREA NITROGEN (test code = BUN) mg/dL 7-18 GLOMERULAR FILTRATION RATE (test code = GFR) mL/min >=60 CREATININE (test code = CREAT) mg/dL 0.55-1.02 BUN/CREATININE RATIO (test code = BUN/CREA) 10-20 CALCIUM (test code = CA) mg/dL 8.5-10.1 THYROID STIMULATING [id number] 07:09:00* Test Item Value Reference Range Interpretation Comments THYROID STIMULATING HORMONE (test code = TSH) uIU/mL 0.36-3.7 4 CBC W/O [id number] 07:05:00* Test Item Value Reference Range Interpretation Comments WHITE BLOOD CELL (test code = WBC) 6.2 K/mm3 4.5-12.5 N RED BLOOD CELL (test code = RBC) 3.31 mill/mm3 3.7-5.2 L HEMOGLOBIN (test code = HGB) 9.1 gram/dL 11.5-15.5 L HEMATOCRIT (test code = HCT) 29.3 % 36.0-46.0 L MEAN CELL VOLUME (test code = MCV) 88.5 fL 80-98 N MEAN CELL HGB (test code = MCH) 27.5 picogram 27.0-33.0 N MEAN CELL HGB CONCETRATION (test code = MCHC) 31.1 gram/dL 33.0-36. 0 L RED CELL DISTRIBUTION WIDTH (test code = RDW) 19.8 % 11.6-16. 2 H PLATELET COUNT (test code = PLT) 23 K/mm3 150-450 LL Results called to [id number] by ENMA 11/16/18 0705Critical results verified and read back by Nurse? Y CBC W/MANUAL [id number] 07:25:00* Test Item Value Reference Range Interpretation Comments WHITE BLOOD CELL (test code = WBC) 7.0 K/mm3 4.5-12.5 N RED BLOOD CELL (test code = RBC) 3.04 mill/mm3 3.7-5.2 L HEMOGLOBIN (test code = HGB) 8.4 gram/dL 11.5-15.5 L HEMATOCRIT (test code = HCT) 27.5 % 36.0-46.0 L MEAN CELL VOLUME (test code = MCV) 90.5 fL 80-98 N MEAN CELL HGB (test code = MCH) 27.6 picogram 27.0-33.0 N MEAN CELL HGB CONCETRATION (test code = MCHC) 30.5 gram/dL 33.0-36. 0 L RED CELL DISTRIBUTION WIDTH (test code = RDW) 19.9 % 11.6-16. 2 H RED CELL DISTRIBUTION WIDTH SD (test code = RDW-SD) 65.1 fL 37 .0-51.0 H PLATELET COUNT (test code = PLT) 35 K/mm3 150-450 LL Results called to [id number] by V.[email or web address].ISRA 11/15/18 0509Critical results verified and read back by Nurse? Y MEAN PLATELET VOLUME (test code = MPV) 12.2 fL 6.7-11.0 H IMMATURE GRANULOCYTE % (test code = IG%) 0.9 % 0.0-5.0 N NUCLEATED RBC % (test code = NRBC%) 0.0 % 0-0 N NEUTROPHIL # (test code = NT#) 3.45 K/mm3 1.8-7.7 N IMMATURE GRANULOCYTE # (test code = IG#) 0.06 x10 3/uL 0-0.03 H LYMPHOCYTE # (test code = LY#) 2.74 K/mm3 1.0-5.0 N MONOCYTE # (test code = MO#) 0.55 K/mm3 0-0.8 N EOSINOPHIL # (test code = EO#) 0.12 K/mm3 0.0-0.5 N BASOPHIL # (test code = BA#) 0.04 K/mm3 0.0-0.2 N NUCLEATED RBC # (test code = NRBC#) 0.00 K/mm3 0.0-0.1 N MANUAL DIFF REQUIRED (test code = MDIFF) YES STAIN ACCEPTABILITY (test code = STN ACCEPTABLE) STAIN ACCEPTABLE TOTAL CELLS COUNTED (test code = TCC) 112 #CELLS SEGMENTED NEUTROPHILS (test code = SEG) 67.8 % 39-69 N BAND NEUTROPHIL (test code = BAND) 0.9 % 0-10 N LYMPHOCYTE (test code = LYMPH) 24.1 % 25-55 L REACTIVE LYMPH (test code = RELYMPH) 0 % MONOCYTE (test code = MON) 4.5 % 0-10 N EOSINOPHIL (test code = EOS) 0 % 0.0-5.0 N BASOPHIL (test code = BASO) 2.7 % 0-1.0 H METAMYELOCYTE (test code = META) 0 % 0-0 N MYELOCYTE (test code = MYELO) 0 % 0.0-0.0 N PROMYELOCYTE (test code = PROM) 0 % 0-0 N ANISOCYTOSIS (test code = ANISO) 2+ MACROCYTOSIS (test code = MACR) 2+ PLATELET ESTIMATE (test code = PLTEST) DECREASED PLATELET MORPHOLOGY (test code = PLTMORPH) NORMAL IMMATURE FORMS (test code = IMMAT) 0 % 0-0 N BASIC METABOLIC [id number] 05:22:00* Test Item Value Reference Range Interpretation Comments SODIUM (test code = NA) 146 mmol/L 136-145 H POTASSIUM (test code = K) 2.8 mmol/L 3.5-5.1 LL Re sults called to [id number] by [email or web address] 11/15/18 0522Critical results verified and read back by Nurse? Y CHLORIDE (test code = CL) 110.0 mmol/L 98-107 H CARBON DIOXIDE (test code = CO2) 26.0 mmol/L 21-32 N ANION GAP (test code = GAP) 12.8 10-20 N GLUCOSE (test code = GLU) 151 mg/dL 74-106 H BLOOD UREA NITROGEN (test code = BUN) 68 mg/dL 7-18 H GLOMERULAR FILTRATION RATE (test code = GFR) 18 mL/min >=60 Estimated GFR by using Modified MDRD formula.Chronic kidney disease is defined as either kidney damageor GFR <60 mL/min/1.73 m2 for >3 months. CREATININE (test code = CREAT) 2.80 mg/dL 0.55-1.02 H Note change in reference range due to change in reagent. BUN/CREATININE RATIO (test code = BUN/CREA) 24.3 10-20 H CALCIUM (test code = CA) 8.3 mg/dL 8.5-10.1 L CBC W/MANUAL [id number] 05:09:00* Test Item Value Reference Range Interpretation Comments WHITE BLOOD CELL (test code = WBC) 7.0 K/mm3 4.5-12.5 N RED BLOOD CELL (test code = RBC) 3.04 mill/mm3 3.7-5.2 L HEMOGLOBIN (test code = HGB) 8.4 gram/dL 11.5-15.5 L HEMATOCRIT (test code = HCT) 27.5 % 36.0-46.0 L MEAN CELL VOLUME (test code = MCV) 90.5 fL 80-98 N MEAN CELL HGB (test code = MCH) 27.6 picogram 27.0-33.0 N MEAN CELL HGB CONCETRATION (test code = MCHC) 30.5 gram/dL 33.0-36. 0 L RED CELL DISTRIBUTION WIDTH (test code = RDW) 19.9 % 11.6-16. 2 H RED CELL DISTRIBUTION WIDTH SD (test code = RDW-SD) 65.1 fL 37 .0-51.0 H PLATELET COUNT (test code = PLT) 35 K/mm3 150-450 LL Results called to [id number] by MARIUM 11/15/18 0509Critical results verified and read back by Nurse? Y MEAN PLATELET VOLUME (test code = MPV) 12.2 fL 6.7-11.0 H IMMATURE GRANULOCYTE % (test code = IG%) 0.9 % 0.0-5.0 N NUCLEATED RBC % (test code = NRBC%) 0.0 % 0-0 N NEUTROPHIL # (test code = NT#) 3.45 K/mm3 1.8-7.7 N IMMATURE GRANULOCYTE # (test code = IG#) 0.06 x10 3/uL 0-0.03 H LYMPHOCYTE # (test code = LY#) 2.74 K/mm3 1.0-5.0 N MONOCYTE # (test code = MO#) 0.55 K/mm3 0-0.8 N EOSINOPHIL # (test code = EO#) 0.12 K/mm3 0.0-0.5 N BASOPHIL # (test code = BA#) 0.04 K/mm3 0.0-0.2 N NUCLEATED RBC # (test code = NRBC#) 0.00 K/mm3 0.0-0.1 N MANUAL DIFF REQUIRED (test code = MDIFF) YES STAIN ACCEPTABILITY (test code = STN ACCEPTABLE) TOTAL CELLS COUNTED (test code = TCC) #CELLS SEGMENTED NEUTROPHILS (test code = SEG) % 39-69 LYMPHOCYTE (test code = LYMPH) % 25-55 MONOCYTE (test code = MON) % 0-10 EOSINOPHIL (test code = EOS) % 0.0-5.0 CABOT RINGS (test code = CAB) MORPHOLOGY COMMENT (test code = MOC) PLATELET ESTIMATE (test code = PLTEST) PLATELET MORPHOLOGY (test code = PLTMORPH) CBC W/MANUAL [id number] 05:09:00* Test Item Value Reference Range Interpretation Comments WHITE BLOOD CELL (test code = WBC) 7.0 K/mm3 4.5-12.5 N RED BLOOD CELL (test code = RBC) 3.04 mill/mm3 3.7-5.2 L HEMOGLOBIN (test code = HGB) 8.4 gram/dL 11.5-15.5 L HEMATOCRIT (test code = HCT) 27.5 % 36.0-46.0 L MEAN CELL VOLUME (test code = MCV) 90.5 fL 80-98 N MEAN CELL HGB (test code = MCH) 27.6 picogram 27.0-33.0 N MEAN CELL HGB CONCETRATION (test code = MCHC) 30.5 gram/dL 33.0-36. 0 L RED CELL DISTRIBUTION WIDTH (test code = RDW) 19.9 % 11.6-16. 2 H RED CELL DISTRIBUTION WIDTH SD (test code = RDW-SD) 65.1 fL 37 .0-51.0 H PLATELET COUNT (test code = PLT) 35 K/mm3 150-450 LL Results called to [id number] by MARIUM 11/15/18 0509Critical results verified and read back by Nurse? Y MEAN PLATELET VOLUME (test code = MPV) 12.2 fL 6.7-11.0 H IMMATURE GRANULOCYTE % (test code = IG%) 0.9 % 0.0-5.0 N NUCLEATED RBC % (test code = NRBC%) 0.0 % 0-0 N NEUTROPHIL # (test code = NT#) 3.45 K/mm3 1.8-7.7 N IMMATURE GRANULOCYTE # (test code = IG#) 0.06 x10 3/uL 0-0.03 H LYMPHOCYTE # (test code = LY#) 2.74 K/mm3 1.0-5.0 N MONOCYTE # (test code = MO#) 0.55 K/mm3 0-0.8 N EOSINOPHIL # (test code = EO#) 0.12 K/mm3 0.0-0.5 N BASOPHIL # (test code = BA#) 0.04 K/mm3 0.0-0.2 N NUCLEATED RBC # (test code = NRBC#) 0.00 K/mm3 0.0-0.1 N MANUAL DIFF REQUIRED (test code = MDIFF) YES STAIN ACCEPTABILITY (test code = STN ACCEPTABLE) TOTAL CELLS COUNTED (test code = TCC) #CELLS SEGMENTED NEUTROPHILS (test code = SEG) % 39-69 LYMPHOCYTE (test code = LYMPH) % 25-55 MONOCYTE (test code = MON) % 0-10 EOSINOPHIL (test code = EOS) % 0.0-5.0 CABOT RINGS (test code = CAB) MORPHOLOGY COMMENT (test code = MOC) PLATELET ESTIMATE (test code = PLTEST) PLATELET MORPHOLOGY (test code = PLTMORPH) CBC W/MANUAL [id number] 05:09:00* Test Item Value Reference Range Interpretation Comments WHITE BLOOD CELL (test code = WBC) 7.0 K/mm3 4.5-12.5 N RED BLOOD CELL (test code = RBC) 3.04 mill/mm3 3.7-5.2 L HEMOGLOBIN (test code = HGB) 8.4 gram/dL 11.5-15.5 L HEMATOCRIT (test code = HCT) 27.5 % 36.0-46.0 L MEAN CELL VOLUME (test code = MCV) 90.5 fL 80-98 N MEAN CELL HGB (test code = MCH) 27.6 picogram 27.0-33.0 N MEAN CELL HGB CONCETRATION (test code = MCHC) 30.5 gram/dL 33.0-36. 0 L RED CELL DISTRIBUTION WIDTH (test code = RDW) 19.9 % 11.6-16. 2 H RED CELL DISTRIBUTION WIDTH SD (test code = RDW-SD) 65.1 fL 37 .0-51.0 H PLATELET COUNT (test code = PLT) 35 K/mm3 150-450 LL Results called to [id number] by MARIUM 11/15/18 0509Critical results verified and read back by Nurse? Y MEAN PLATELET VOLUME (test code = MPV) 12.2 fL 6.7-11.0 H IMMATURE GRANULOCYTE % (test code = IG%) 0.9 % 0.0-5.0 N NUCLEATED RBC % (test code = NRBC%) 0.0 % 0-0 N NEUTROPHIL # (test code = NT#) 3.45 K/mm3 1.8-7.7 N IMMATURE GRANULOCYTE # (test code = IG#) 0.06 x10 3/uL 0-0.03 H LYMPHOCYTE # (test code = LY#) 2.74 K/mm3 1.0-5.0 N MONOCYTE # (test code = MO#) 0.55 K/mm3 0-0.8 N EOSINOPHIL # (test code = EO#) 0.12 K/mm3 0.0-0.5 N BASOPHIL # (test code = BA#) 0.04 K/mm3 0.0-0.2 N NUCLEATED RBC # (test code = NRBC#) 0.00 K/mm3 0.0-0.1 N MANUAL DIFF REQUIRED (test code = MDIFF) YES STAIN ACCEPTABILITY (test code = STN ACCEPTABLE) TOTAL CELLS COUNTED (test code = TCC) #CELLS SEGMENTED NEUTROPHILS (test code = SEG) % 39-69 LYMPHOCYTE (test code = LYMPH) % 25-55 MONOCYTE (test code = MON) % 0-10 EOSINOPHIL (test code = EOS) % 0.0-5.0 MORPHOLOGY COMMENT (test code = MOC) PLATELET ESTIMATE (test code = PLTEST) PLATELET MORPHOLOGY (test code = PLTMORPH) CBC W/MANUAL [id number] 05:09:00* Test Item Value Reference Range Interpretation Comments WHITE BLOOD CELL (test code = WBC) 7.0 K/mm3 4.5-12.5 N RED BLOOD CELL (test code = RBC) 3.04 mill/mm3 3.7-5.2 L HEMOGLOBIN (test code = HGB) 8.4 gram/dL 11.5-15.5 L HEMATOCRIT (test code = HCT) 27.5 % 36.0-46.0 L MEAN CELL VOLUME (test code = MCV) 90.5 fL 80-98 N MEAN CELL HGB (test code = MCH) 27.6 picogram 27.0-33.0 N MEAN CELL HGB CONCETRATION (test code = MCHC) 30.5 gram/dL 33.0-36. 0 L RED CELL DISTRIBUTION WIDTH (test code = RDW) 19.9 % 11.6-16. 2 H RED CELL DISTRIBUTION WIDTH SD (test code = RDW-SD) 65.1 fL 37 .0-51.0 H PLATELET COUNT (test code = PLT) 35 K/mm3 150-450 LL Results called to [id number] by V.LAB.ISRA 11/15/18 0509Critical results verified and read back by Nurse? Y MEAN PLATELET VOLUME (test code = MPV) 12.2 fL 6.7-11.0 H IMMATURE GRANULOCYTE % (test code = IG%) 0.9 % 0.0-5.0 N NUCLEATED RBC % (test code = NRBC%) 0.0 % 0-0 N NEUTROPHIL # (test code = NT#) 3.45 K/mm3 1.8-7.7 N IMMATURE GRANULOCYTE # (test code = IG#) 0.06 x10 3/uL 0-0.03 H LYMPHOCYTE # (test code = LY#) 2.74 K/mm3 1.0-5.0 N MONOCYTE # (test code = MO#) 0.55 K/mm3 0-0.8 N EOSINOPHIL # (test code = EO#) 0.12 K/mm3 0.0-0.5 N BASOPHIL # (test code = BA#) 0.04 K/mm3 0.0-0.2 N NUCLEATED RBC # (test code = NRBC#) 0.00 K/mm3 0.0-0.1 N MANUAL DIFF REQUIRED (test code = MDIFF) YES STAIN ACCEPTABILITY (test code = STN ACCEPTABLE) TOTAL CELLS COUNTED (test code = TCC) #CELLS SEGMENTED NEUTROPHILS (test code = SEG) % 39-69 LYMPHOCYTE (test code = LYMPH) % 25-55 MONOCYTE (test code = MON) % 0-10 MORPHOLOGY COMMENT (test code = MOC) PLATELET ESTIMATE (test code = PLTEST) PLATELET MORPHOLOGY (test code = PLTMORPH) CBC W/MANUAL [id number] 05:09:00* Test Item Value Reference Range Interpretation Comments WHITE BLOOD CELL (test code = WBC) 7.0 K/mm3 4.5-12.5 N RED BLOOD CELL (test code = RBC) 3.04 mill/mm3 3.7-5.2 L HEMOGLOBIN (test code = HGB) 8.4 gram/dL 11.5-15.5 L HEMATOCRIT (test code = HCT) 27.5 % 36.0-46.0 L MEAN CELL VOLUME (test code = MCV) 90.5 fL 80-98 N MEAN CELL HGB (test code = MCH) 27.6 picogram 27.0-33.0 N MEAN CELL HGB CONCETRATION (test code = MCHC) 30.5 gram/dL 33.0-36. 0 L RED CELL DISTRIBUTION WIDTH (test code = RDW) 19.9 % 11.6-16. 2 H RED CELL DISTRIBUTION WIDTH SD (test code = RDW-SD) 65.1 fL 37 .0-51.0 H PLATELET COUNT (test code = PLT) 35 K/mm3 150-450 LL Results called to [id number] by MARIUM 11/15/18 0509Critical results verified and read back by Nurse? Y MEAN PLATELET VOLUME (test code = MPV) 12.2 fL 6.7-11.0 H IMMATURE GRANULOCYTE % (test code = IG%) 0.9 % 0.0-5.0 N NUCLEATED RBC % (test code = NRBC%) 0.0 % 0-0 N NEUTROPHIL # (test code = NT#) 3.45 K/mm3 1.8-7.7 N IMMATURE GRANULOCYTE # (test code = IG#) 0.06 x10 3/uL 0-0.03 H LYMPHOCYTE # (test code = LY#) 2.74 K/mm3 1.0-5.0 N MONOCYTE # (test code = MO#) 0.55 K/mm3 0-0.8 N EOSINOPHIL # (test code = EO#) 0.12 K/mm3 0.0-0.5 N BASOPHIL # (test code = BA#) 0.04 K/mm3 0.0-0.2 N NUCLEATED RBC # (test code = NRBC#) 0.00 K/mm3 0.0-0.1 N MANUAL DIFF REQUIRED (test code = MDIFF) YES STAIN ACCEPTABILITY (test code = STN ACCEPTABLE) TOTAL CELLS COUNTED (test code = TCC) #CELLS SEGMENTED NEUTROPHILS (test code = SEG) % 39-69 LYMPHOCYTE (test code = LYMPH) % 25-55 MONOCYTE (test code = MON) % 0-10 EOSINOPHIL (test code = EOS) % 0.0-5.0 CABOT RINGS (test code = CAB) MORPHOLOGY COMMENT (test code = MOC) PLATELET ESTIMATE (test code = PLTEST) PLATELET MORPHOLOGY (test code = PLTMORPH) PROTHROMBIN [id number] 19:12:00* Test Item Value Reference Range Interpretation Comments PROTHROMBIN TIME PATIENT (test code = PTP) 17.3 seconds 9.0-14.0 H INTERNATIONAL NORMAL RATIO (test code = INR) 1.5 0.8-1.2 H The therapeutic range for oral anticoagulant therapy [...] heart valves (2.5-3.5) IS PATIENT ON ANTICOAGULANTS? NDGB [id number] 19:00:00* Test Item Value Reference Range Interpretation Comments HEMOGLOBIN (test code = HGB) 8.4 gram/dL 11.5-15.5 L HEMATOCRIT (test code = HCT) 27.5 % 36.0-46.0 L - CT ABD PELVIS W/O [id number] 16:01:00 Name: SIOBHAN BARBOSA [facility] : 1965 Age/S: 53 / F [address] Unit #: [id number] Loc: [place] [address] Phys: Fabiana Drake MD Acct: [id number] Dis Date: Status: ADM IN PHONE #: [phone] Exam Date: 11/14/2018 1535 FAX #: [phone] Reason: FIRM DISTENDED ABDOMENT. ORAL CONTRAST ONLY EXAMS: CPT CODE: [id number] CT ABD PELVIS W/O CONT [id number] REASON FOR EXAM: FIRM DISTENDED ABDOMENT. ORAL CONTRAST ONLY EXAM ORDER DATE: 11/14/2018 11:28 AM Ordering MConrado: Fabiana Drake MD PROCEDURE: - CT ABD [...] left ureteral stent noted. The urinary bladder i s contracted with a suprapubic catheter The colon, small bowel, an d stomach are within normal limits without evidence [...] INTERNAL CODING PURPOSES ONLY RESULT CODE: CVR 19 at 1601 Reported and signed by: Jewel Reyez M.D. [facility] 1 Signed Report (CONTINUED) Name: SIOBHAN BARBOSA [facility] : [birth year] Age/S: 53 / F [address] Unit #: [id number] Loc: [place] [address] Phys: Fabiana Drake MD Acct: [id number] Dis Date: Status: ADM IN PHONE #: Exam Date: 11/14/2018 1535 FAX #: [phone] Reason: FIRM DISTENDED ABDOMENT. ORAL CONTRAST ONLY EXAMS: CPT CODE: [id number] CT ABD PELVIS W/[place] [id number] <Continued> CC: Fabiana Drake MD; Shirin Knott Technologist:RT MARTA(R) CT CTDI: DLP: Trnscb Date/Time: 11/14/2018 (1601) t.SDR.VTL Orig Print D/T: S: 11/14/2018 (1608) CTDI: DLP: PAGE 2 Signed Report CBC W/AUTO [id number] 06:38:00* Test Item Value Reference Range Interpretation Comments WHITE BLOOD CELL (test code = WBC) 7.2 K/mm3 4.5-12.5 N RED BLOOD CELL (test code = RBC) 2.63 mill/mm3 3.7-5.2 L HEMOGLOBIN (test code = HGB) 7.5 gram/dL 11.5-15.5 L HEMATOCRIT (test code = HCT) 23.7 % 36.0-46.0 L MEAN CELL VOLUME (test code = MCV) 90.1 fL 80-98 N MEAN CELL HGB (test code = MCH) 28.5 picogram 27.0-33.0 N MEAN CELL HGB CONCETRATION (test code = MCHC) 31.6 gram/dL 33.0-36. 0 L RED CELL DISTRIBUTION WIDTH (test code = RDW) 21.1 % 11.6-16. 2 H RED CELL DISTRIBUTION WIDTH SD (test code = RDW-SD) 66.3 fL 37 .0-51.0 H PLATELET COUNT (test code = PLT) 27 K/mm3 150-450 LL Results called to [id number] by V.LABAYDIN 11/14/18 0604Critical results verified and read back by Nurse? Y MEAN PLATELET VOLUME (test code = MPV) TEST NOT PERFORMED fL 6.7-11 .0 NEUTROPHIL % (test code = NT%) 44.2 % 39.0-69.0 N IMMATURE GRANULOCYTE % (test code = IG%) 0.4 % 0.0-5.0 N LYMPHOCYTE % (test code = LY%) 45.3 % 25.0-55.0 N MONOCYTE % (test code = MO%) 7.6 % 0.0-10.0 N EOSINOPHIL % (test code = EO%) 1.9 % 0.0-5.0 N BASOPHIL % (test code = BA%) 0.6 % 0.0-1.0 N NUCLEATED RBC % (test code = NRBC%) 0.0 % 0-0 N NEUTROPHIL # (test code = NT#) 3.20 K/mm3 1.8-7.7 N IMMATURE GRANULOCYTE # (test code = IG#) 0.03 x10 3/uL 0-0.03 N LYMPHOCYTE # (test code = LY#) 3.28 K/mm3 1.0-5.0 N MONOCYTE # (test code = MO#) 0.55 K/mm3 0-0.8 N EOSINOPHIL # (test code = EO#) 0.14 K/mm3 0.0-0.5 N BASOPHIL # (test code = BA#) 0.04 K/mm3 0.0-0.2 N NUCLEATED RBC # (test code = NRBC#) 0.00 K/mm3 0.0-0.1 N MANUAL DIFF REQUIRED (test code = MDIFF) NO, ONLY SCAN NEEDED DIFFERENTIAL [id number] 06:38:00* Test Item Value Reference Range Interpretation Comments STAIN ACCEPTABILITY (test code = STN ACCEPTABLE) STAIN ACCEPTABLE ANISOCYTOSIS (test code = ANISO) 3+ MACROCYTOSIS (test code = MACR) 2+ PLATELET ESTIMATE (test code = PLTEST) DECREASED PLATELET MORPHOLOGY (test code = PLTMORPH) NORMAL BASIC METABOLIC [id number] 06:11:00* Test Item Value Reference Range Interpretation Comments SODIUM (test code = NA) 148 mmol/L 136-145 H POTASSIUM (test code = K) 3.1 mmol/L 3.5-5.1 L CHLORIDE (test code = CL) 114.0 mmol/L 98-107 H CARBON DIOXIDE (test code = CO2) 22.0 mmol/L 21-32 N ANION GAP (test code = GAP) 15.1 10-20 N GLUCOSE (test code = GLU) 100 mg/dL 74-106 N BLOOD UREA NITROGEN (test code = BUN) 70 mg/dL 7-18 H GLOMERULAR FILTRATION RATE (test code = GFR) 18 mL/min >=60 Estimated GFR by using Modified MDRD formula.Chronic kidney disease is defined as either kidney damageor GFR <60 mL/min/1.73 m2 for >3 months. CREATININE (test code = CREAT) 2.70 mg/dL 0.55-1.02 H Note change in reference range due to change in reagent. BUN/CREATININE RATIO (test code = BUN/CREA) 25.9 10-20 H CALCIUM (test code = CA) 8.6 mg/dL 8.5-10.1 N CBC W/AUTO [id number] 06:05:00* Test Item Value Reference Range Interpretation Comments WHITE BLOOD CELL (test code = WBC) 7.2 K/mm3 4.5-12.5 N RED BLOOD CELL (test code = RBC) 2.63 mill/mm3 3.7-5.2 L HEMOGLOBIN (test code = HGB) 7.5 gram/dL 11.5-15.5 L HEMATOCRIT (test code = HCT) 23.7 % 36.0-46.0 L MEAN CELL VOLUME (test code = MCV) 90.1 fL 80-98 N MEAN CELL HGB (test code = MCH) 28.5 picogram 27.0-33.0 N MEAN CELL HGB CONCETRATION (test code = MCHC) 31.6 gram/dL 33.0-36. 0 L RED CELL DISTRIBUTION WIDTH (test code = RDW) 21.1 % 11.6-16. 2 H RED CELL DISTRIBUTION WIDTH SD (test code = RDW-SD) 66.3 fL 37 .0-51.0 H PLATELET COUNT (test code = PLT) 27 K/mm3 150-450 LL Results called to [id number] by MARIUM 11/14/18 0604Critical results verified and read back by Nurse? Y MEAN PLATELET VOLUME (test code = MPV) TEST NOT PERFORMED fL 6.7-11 .0 NEUTROPHIL % (test code = NT%) 44.2 % 39.0-69.0 N IMMATURE GRANULOCYTE % (test code = IG%) 0.4 % 0.0-5.0 N LYMPHOCYTE % (test code = LY%) 45.3 % 25.0-55.0 N MONOCYTE % (test code = MO%) 7.6 % 0.0-10.0 N EOSINOPHIL % (test code = EO%) 1.9 % 0.0-5.0 N BASOPHIL % (test code = BA%) 0.6 % 0.0-1.0 N NUCLEATED RBC % (test code = NRBC%) 0.0 % 0-0 N NEUTROPHIL # (test code = NT#) 3.20 K/mm3 1.8-7.7 N IMMATURE GRANULOCYTE # (test code = IG#) 0.03 x10 3/uL 0-0.03 N LYMPHOCYTE # (test code = LY#) 3.28 K/mm3 1.0-5.0 N MONOCYTE # (test code = MO#) 0.55 K/mm3 0-0.8 N EOSINOPHIL # (test code = EO#) 0.14 K/mm3 0.0-0.5 N BASOPHIL # (test code = BA#) 0.04 K/mm3 0.0-0.2 N NUCLEATED RBC # (test code = NRBC#) 0.00 K/mm3 0.0-0.1 N MANUAL DIFF REQUIRED (test code = MDIFF) NO, ONLY SCAN NEEDED DIFFERENTIAL [id number] 06:05:00* Test Item Value Reference Range Interpretation Comments STAIN ACCEPTABILITY (test code = STN ACCEPTABLE) CABOT RINGS (test code = CAB) MORPHOLOGY COMMENT (test code = MOC) PLATELET ESTIMATE (test code = PLTEST) PLATELET MORPHOLOGY (test code = PLTMORPH) CBC W/AUTO [id number] 06:05:00* Test Item Value Reference Range Interpretation Comments WHITE BLOOD CELL (test code = WBC) 7.2 K/mm3 4.5-12.5 N RED BLOOD CELL (test code = RBC) 2.63 mill/mm3 3.7-5.2 L HEMOGLOBIN (test code = HGB) 7.5 gram/dL 11.5-15.5 L HEMATOCRIT (test code = HCT) 23.7 % 36.0-46.0 L MEAN CELL VOLUME (test code = MCV) 90.1 fL 80-98 N MEAN CELL HGB (test code = MCH) 28.5 picogram 27.0-33.0 N MEAN CELL HGB CONCETRATION (test code = MCHC) 31.6 gram/dL 33.0-36. 0 L RED CELL DISTRIBUTION WIDTH (test code = RDW) 21.1 % 11.6-16. 2 H RED CELL DISTRIBUTION WIDTH SD (test code = RDW-SD) 66.3 fL 37 .0-51.0 H PLATELET COUNT (test code = PLT) 27 K/mm3 150-450 LL Results called to [id number] by MARIUM 11/14/18 0604Critical results verified and read back by Nurse? Y MEAN PLATELET VOLUME (test code = MPV) TEST NOT PERFORMED fL 6.7-11 .0 NEUTROPHIL % (test code = NT%) 44.2 % 39.0-69.0 N IMMATURE GRANULOCYTE % (test code = IG%) 0.4 % 0.0-5.0 N LYMPHOCYTE % (test code = LY%) 45.3 % 25.0-55.0 N MONOCYTE % (test code = MO%) 7.6 % 0.0-10.0 N EOSINOPHIL % (test code = EO%) 1.9 % 0.0-5.0 N BASOPHIL % (test code = BA%) 0.6 % 0.0-1.0 N NUCLEATED RBC % (test code = NRBC%) 0.0 % 0-0 N NEUTROPHIL # (test code = NT#) 3.20 K/mm3 1.8-7.7 N IMMATURE GRANULOCYTE # (test code = IG#) 0.03 x10 3/uL 0-0.03 N LYMPHOCYTE # (test code = LY#) 3.28 K/mm3 1.0-5.0 N MONOCYTE # (test code = MO#) 0.55 K/mm3 0-0.8 N EOSINOPHIL # (test code = EO#) 0.14 K/mm3 0.0-0.5 N BASOPHIL # (test code = BA#) 0.04 K/mm3 0.0-0.2 N NUCLEATED RBC # (test code = NRBC#) 0.00 K/mm3 0.0-0.1 N MANUAL DIFF REQUIRED (test code = MDIFF) NO, ONLY SCAN NEEDED DIFFERENTIAL [id number] 06:05:00* Test Item Value Reference Range Interpretation Comments STAIN ACCEPTABILITY (test code = STN ACCEPTABLE) CABOT RINGS (test code = CAB) MORPHOLOGY COMMENT (test code = MOC) PLATELET ESTIMATE (test code = PLTEST) PLATELET MORPHOLOGY (test code = PLTMORPH) CBC W/AUTO [id number] 06:05:00* Test Item Value Reference Range Interpretation Comments WHITE BLOOD CELL (test code = WBC) 7.2 K/mm3 4.5-12.5 N RED BLOOD CELL (test code = RBC) 2.63 mill/mm3 3.7-5.2 L HEMOGLOBIN (test code = HGB) 7.5 gram/dL 11.5-15.5 L HEMATOCRIT (test code = HCT) 23.7 % 36.0-46.0 L MEAN CELL VOLUME (test code = MCV) 90.1 fL 80-98 N MEAN CELL HGB (test code = MCH) 28.5 picogram 27.0-33.0 N MEAN CELL HGB CONCETRATION (test code = MCHC) 31.6 gram/dL 33.0-36. 0 L RED CELL DISTRIBUTION WIDTH (test code = RDW) 21.1 % 11.6-16. 2 H RED CELL DISTRIBUTION WIDTH SD (test code = RDW-SD) 66.3 fL 37 .0-51.0 H PLATELET COUNT (test code = PLT) 27 K/mm3 150-450 LL Results called to [id number] by V.LAB.JCelena 11/14/18 0604Critical results verified and read back by Nurse? Y MEAN PLATELET VOLUME (test code = MPV) TEST NOT PERFORMED fL 6.7-11 .0 NEUTROPHIL % (test code = NT%) 44.2 % 39.0-69.0 N IMMATURE GRANULOCYTE % (test code = IG%) 0.4 % 0.0-5.0 N LYMPHOCYTE % (test code = LY%) 45.3 % 25.0-55.0 N MONOCYTE % (test code = MO%) 7.6 % 0.0-10.0 N EOSINOPHIL % (test code = EO%) 1.9 % 0.0-5.0 N BASOPHIL % (test code = BA%) 0.6 % 0.0-1.0 N NUCLEATED RBC % (test code = NRBC%) 0.0 % 0-0 N NEUTROPHIL # (test code = NT#) 3.20 K/mm3 1.8-7.7 N IMMATURE GRANULOCYTE # (test code = IG#) 0.03 x10 3/uL 0-0.03 N LYMPHOCYTE # (test code = LY#) 3.28 K/mm3 1.0-5.0 N MONOCYTE # (test code = MO#) 0.55 K/mm3 0-0.8 N EOSINOPHIL # (test code = EO#) 0.14 K/mm3 0.0-0.5 N BASOPHIL # (test code = BA#) 0.04 K/mm3 0.0-0.2 N NUCLEATED RBC # (test code = NRBC#) 0.00 K/mm3 0.0-0.1 N MANUAL DIFF REQUIRED (test code = MDIFF) NO, ONLY SCAN NEEDED DIFFERENTIAL [id number] 06:05:00* Test Item Value Reference Range Interpretation Comments STAIN ACCEPTABILITY (test code = STN ACCEPTABLE) MORPHOLOGY COMMENT (test code = MOC) PLATELET ESTIMATE (test code = PLTEST) PLATELET MORPHOLOGY (test code = PLTMORPH) CBC W/AUTO [id number] 06:05:00* Test Item Value Reference Range Interpretation Comments WHITE BLOOD CELL (test code = WBC) 7.2 K/mm3 4.5-12.5 N RED BLOOD CELL (test code = RBC) 2.63 mill/mm3 3.7-5.2 L HEMOGLOBIN (test code = HGB) 7.5 gram/dL 11.5-15.5 L HEMATOCRIT (test code = HCT) 23.7 % 36.0-46.0 L MEAN CELL VOLUME (test code = MCV) 90.1 fL 80-98 N MEAN CELL HGB (test code = MCH) 28.5 picogram 27.0-33.0 N MEAN CELL HGB CONCETRATION (test code = MCHC) 31.6 gram/dL 33.0-36. 0 L RED CELL DISTRIBUTION WIDTH (test code = RDW) 21.1 % 11.6-16. 2 H RED CELL DISTRIBUTION WIDTH SD (test code = RDW-SD) 66.3 fL 37 .0-51.0 H PLATELET COUNT (test code = PLT) 27 K/mm3 150-450 LL Results called to [id number] by MARIUM 11/14/18 0604Critical results verified and read back by Nurse? Y MEAN PLATELET VOLUME (test code = MPV) TEST NOT PERFORMED fL 6.7-11 .0 NEUTROPHIL % (test code = NT%) 44.2 % 39.0-69.0 N IMMATURE GRANULOCYTE % (test code = IG%) 0.4 % 0.0-5.0 N LYMPHOCYTE % (test code = LY%) 45.3 % 25.0-55.0 N MONOCYTE % (test code = MO%) 7.6 % 0.0-10.0 N EOSINOPHIL % (test code = EO%) 1.9 % 0.0-5.0 N BASOPHIL % (test code = BA%) 0.6 % 0.0-1.0 N NUCLEATED RBC % (test code = NRBC%) 0.0 % 0-0 N NEUTROPHIL # (test code = NT#) 3.20 K/mm3 1.8-7.7 N IMMATURE GRANULOCYTE # (test code = IG#) 0.03 x10 3/uL 0-0.03 N LYMPHOCYTE # (test code = LY#) 3.28 K/mm3 1.0-5.0 N MONOCYTE # (test code = MO#) 0.55 K/mm3 0-0.8 N EOSINOPHIL # (test code = EO#) 0.14 K/mm3 0.0-0.5 N BASOPHIL # (test code = BA#) 0.04 K/mm3 0.0-0.2 N NUCLEATED RBC # (test code = NRBC#) 0.00 K/mm3 0.0-0.1 N MANUAL DIFF REQUIRED (test code = MDIFF) NO, ONLY SCAN NEEDED DIFFERENTIAL [id number] 06:05:00* Test Item Value Reference Range Interpretation Comments STAIN ACCEPTABILITY (test code = STN ACCEPTABLE) CABOT RINGS (test code = CAB) MORPHOLOGY COMMENT (test code = MOC) PLATELET ESTIMATE (test code = PLTEST) PLATELET MORPHOLOGY (test code = PLTMORPH) BASIC METABOLIC [id number] 06:00:00* Test Item Value Reference Range Interpretation Comments SODIUM (test code = NA) 148 mmol/L 136-145 H POTASSIUM (test code = K) 3.1 mmol/L 3.5-5.1 L CHLORIDE (test code = CL) 114.0 mmol/L 98-107 H CARBON DIOXIDE (test code = CO2) mmol/L 21-32 ANION GAP (test code = GAP) 10-20 GLUCOSE (test code = GLU) mg/dL 74-106 BLOOD UREA NITROGEN (test code = BUN) mg/dL 7-18 GLOMERULAR FILTRATION RATE (test code = GFR) mL/min >=60 CREATININE (test code = CREAT) mg/dL 0.55-1.02 BUN/CREATININE RATIO (test code = BUN/CREA) 10-20 CALCIUM (test code = CA) mg/dL 8.5-10.1 CBC W/MANUAL [id number] 10:07:00* Test Item Value Reference Range Interpretation Comments WHITE BLOOD CELL (test code = WBC) 9.4 K/mm3 4.5-12.5 N RED BLOOD CELL (test code = RBC) 2.86 mill/mm3 3.7-5.2 L HEMOGLOBIN (test code = HGB) 8.0 gram/dL 11.5-15.5 L HEMATOCRIT (test code = HCT) 25.6 % 36.0-46.0 L MEAN CELL VOLUME (test code = MCV) 89.5 fL 80-98 N MEAN CELL HGB (test code = MCH) 28.0 picogram 27.0-33.0 N MEAN CELL HGB CONCETRATION (test code = MCHC) 31.3 gram/dL 33.0-36. 0 L RED CELL DISTRIBUTION WIDTH (test code = RDW) 20.8 % 11.6-16. 2 H RED CELL DISTRIBUTION WIDTH SD (test code = RDW-SD) 63.2 fL 37 .0-51.0 H PLATELET COUNT (test code = PLT) 34 K/mm3 150-450 LL Results called to [id number] by [email or web address] 11/13/18 0750Critical results verified and read back by Nurse? Y MEAN PLATELET VOLUME (test code = MPV) TEST NOT PERFORMED fL 6.7-11 .0 Unable to determine due to platelet abnormality , please seethe platelet morphology. IMMATURE GRANULOCYTE % (test code = IG%) 0.5 % 0.0-5.0 N NUCLEATED RBC % (test code = NRBC%) 0.0 % 0-0 N NEUTROPHIL # (test code = NT#) 4.66 K/mm3 1.8-7.7 N IMMATURE GRANULOCYTE # (test code = IG#) 0.05 x10 3/uL 0-0.03 H LYMPHOCYTE # (test code = LY#) 3.86 K/mm3 1.0-5.0 N MONOCYTE # (test code = MO#) 0.67 K/mm3 0-0.8 N EOSINOPHIL # (test code = EO#) 0.09 K/mm3 0.0-0.5 N BASOPHIL # (test code = BA#) 0.03 K/mm3 0.0-0.2 N NUCLEATED RBC # (test code = NRBC#) 0.00 K/mm3 0.0-0.1 N MANUAL DIFF REQUIRED (test code = MDIFF) YES STAIN ACCEPTABILITY (test code = STN ACCEPTABLE) STAIN ACCEPTABLE TOTAL CELLS COUNTED (test code = TCC) 114 #CELLS SEGMENTED NEUTROPHILS (test code = SEG) 77.2 % 39-69 H BAND NEUTROPHIL (test code = BAND) 0 % 0-10 N LYMPHOCYTE (test code = LYMPH) 18.4 % 25-55 L REACTIVE LYMPH (test code = RELYMPH) 0 % MONOCYTE (test code = MON) 4.4 % 0-10 N EOSINOPHIL (test code = EOS) 0 % 0.0-5.0 N BASOPHIL (test code = BASO) 0 % 0-1.0 N METAMYELOCYTE (test code = META) 0 % 0-0 N MYELOCYTE (test code = MYELO) 0 % 0.0-0.0 N PROMYELOCYTE (test code = PROM) 0 % 0-0 N ANISOCYTOSIS (test code = ANISO) 1+ MACROCYTOSIS (test code = MACR) 1+ PLATELET ESTIMATE (test code = PLTEST) DECREASED PLATELET MORPHOLOGY (test code = PLTMORPH) NORMAL IMMATURE FORMS (test code = IMMAT) 0 % 0-0 N CBC W/MANUAL [id number] 07:52:00* Test Item Value Reference Range Interpretation Comments WHITE BLOOD CELL (test code = WBC) 9.4 K/mm3 4.5-12.5 N RED BLOOD CELL (test code = RBC) 2.86 mill/mm3 3.7-5.2 L HEMOGLOBIN (test code = HGB) 8.0 gram/dL 11.5-15.5 L HEMATOCRIT (test code = HCT) 25.6 % 36.0-46.0 L MEAN CELL VOLUME (test code = MCV) 89.5 fL 80-98 N MEAN CELL HGB (test code = MCH) 28.0 picogram 27.0-33.0 N MEAN CELL HGB CONCETRATION (test code = MCHC) 31.3 gram/dL 33.0-36. 0 L RED CELL DISTRIBUTION WIDTH (test code = RDW) 20.8 % 11.6-16. 2 H RED CELL DISTRIBUTION WIDTH SD (test code = RDW-SD) 63.2 fL 37 .0-51.0 H PLATELET COUNT (test code = PLT) 34 K/mm3 150-450 LL Results called to [id number] by [email or web address] 11/13/18 0750Critical results verified and read back by Nurse? Y MEAN PLATELET VOLUME (test code = MPV) TEST NOT PERFORMED fL 6.7-11 .0 Unable to determine due to platelet abnormality , please seethe platelet morphology. IMMATURE GRANULOCYTE % (test code = IG%) 0.5 % 0.0-5.0 N NUCLEATED RBC % (test code = NRBC%) 0.0 % 0-0 N NEUTROPHIL # (test code = NT#) 4.66 K/mm3 1.8-7.7 N IMMATURE GRANULOCYTE # (test code = IG#) 0.05 x10 3/uL 0-0.03 H LYMPHOCYTE # (test code = LY#) 3.86 K/mm3 1.0-5.0 N MONOCYTE # (test code = MO#) 0.67 K/mm3 0-0.8 N EOSINOPHIL # (test code = EO#) 0.09 K/mm3 0.0-0.5 N BASOPHIL # (test code = BA#) 0.03 K/mm3 0.0-0.2 N NUCLEATED RBC # (test code = NRBC#) 0.00 K/mm3 0.0-0.1 N MANUAL DIFF REQUIRED (test code = MDIFF) YES STAIN ACCEPTABILITY (test code = STN ACCEPTABLE) TOTAL CELLS COUNTED (test code = TCC) #CELLS SEGMENTED NEUTROPHILS (test code = SEG) % 39-69 LYMPHOCYTE (test code = LYMPH) % 25-55 MONOCYTE (test code = MON) % 0-10 EOSINOPHIL (test code = EOS) % 0.0-5.0 CABOT RINGS (test code = CAB) MORPHOLOGY COMMENT (test code = MOC) PLATELET ESTIMATE (test code = PLTEST) PLATELET MORPHOLOGY (test code = PLTMORPH) CBC W/MANUAL [id number] 07:52:00* Test Item Value Reference Range Interpretation Comments WHITE BLOOD CELL (test code = WBC) 9.4 K/mm3 4.5-12.5 N RED BLOOD CELL (test code = RBC) 2.86 mill/mm3 3.7-5.2 L HEMOGLOBIN (test code = HGB) 8.0 gram/dL 11.5-15.5 L HEMATOCRIT (test code = HCT) 25.6 % 36.0-46.0 L MEAN CELL VOLUME (test code = MCV) 89.5 fL 80-98 N MEAN CELL HGB (test code = MCH) 28.0 picogram 27.0-33.0 N MEAN CELL HGB CONCETRATION (test code = MCHC) 31.3 gram/dL 33.0-36. 0 L RED CELL DISTRIBUTION WIDTH (test code = RDW) 20.8 % 11.6-16. 2 H RED CELL DISTRIBUTION WIDTH SD (test code = RDW-SD) 63.2 fL 37 .0-51.0 H PLATELET COUNT (test code = PLT) 34 K/mm3 150-450 LL Results called to [id number] by V.LAB.CF2 11/13/18 0750Critical results verified and read back by Nurse? Y MEAN PLATELET VOLUME (test code = MPV) TEST NOT PERFORMED fL 6.7-11 .0 Unable to determine due to platelet abnormality , please seethe platelet morphology. IMMATURE GRANULOCYTE % (test code = IG%) 0.5 % 0.0-5.0 N NUCLEATED RBC % (test code = NRBC%) 0.0 % 0-0 N NEUTROPHIL # (test code = NT#) 4.66 K/mm3 1.8-7.7 N IMMATURE GRANULOCYTE # (test code = IG#) 0.05 x10 3/uL 0-0.03 H LYMPHOCYTE # (test code = LY#) 3.86 K/mm3 1.0-5.0 N MONOCYTE # (test code = MO#) 0.67 K/mm3 0-0.8 N EOSINOPHIL # (test code = EO#) 0.09 K/mm3 0.0-0.5 N BASOPHIL # (test code = BA#) 0.03 K/mm3 0.0-0.2 N NUCLEATED RBC # (test code = NRBC#) 0.00 K/mm3 0.0-0.1 N MANUAL DIFF REQUIRED (test code = MDIFF) YES STAIN ACCEPTABILITY (test code = STN ACCEPTABLE) TOTAL CELLS COUNTED (test code = TCC) #CELLS SEGMENTED NEUTROPHILS (test code = SEG) % 39-69 LYMPHOCYTE (test code = LYMPH) % 25-55 MONOCYTE (test code = MON) % 0-10 EOSINOPHIL (test code = EOS) % 0.0-5.0 CABOT RINGS (test code = CAB) MORPHOLOGY COMMENT (test code = MOC) PLATELET ESTIMATE (test code = PLTEST) PLATELET MORPHOLOGY (test code = PLTMORPH) CBC W/MANUAL [id number] 07:52:00* Test Item Value Reference Range Interpretation Comments WHITE BLOOD CELL (test code = WBC) 9.4 K/mm3 4.5-12.5 N RED BLOOD CELL (test code = RBC) 2.86 mill/mm3 3.7-5.2 L HEMOGLOBIN (test code = HGB) 8.0 gram/dL 11.5-15.5 L HEMATOCRIT (test code = HCT) 25.6 % 36.0-46.0 L MEAN CELL VOLUME (test code = MCV) 89.5 fL 80-98 N MEAN CELL HGB (test code = MCH) 28.0 picogram 27.0-33.0 N MEAN CELL HGB CONCETRATION (test code = MCHC) 31.3 gram/dL 33.0-36. 0 L RED CELL DISTRIBUTION WIDTH (test code = RDW) 20.8 % 11.6-16. 2 H RED CELL DISTRIBUTION WIDTH SD (test code = RDW-SD) 63.2 fL 37 .0-51.0 H PLATELET COUNT (test code = PLT) 34 K/mm3 150-450 LL Results called to [id number] by V.LAB.CF2 11/13/18 0750Critical results verified and read back by Nurse? Y MEAN PLATELET VOLUME (test code = MPV) TEST NOT PERFORMED fL 6.7-11 .0 Unable to determine due to platelet abnormality , please seethe platelet morphology. IMMATURE GRANULOCYTE % (test code = IG%) 0.5 % 0.0-5.0 N NUCLEATED RBC % (test code = NRBC%) 0.0 % 0-0 N NEUTROPHIL # (test code = NT#) 4.66 K/mm3 1.8-7.7 N IMMATURE GRANULOCYTE # (test code = IG#) 0.05 x10 3/uL 0-0.03 H LYMPHOCYTE # (test code = LY#) 3.86 K/mm3 1.0-5.0 N MONOCYTE # (test code = MO#) 0.67 K/mm3 0-0.8 N EOSINOPHIL # (test code = EO#) 0.09 K/mm3 0.0-0.5 N BASOPHIL # (test code = BA#) 0.03 K/mm3 0.0-0.2 N NUCLEATED RBC # (test code = NRBC#) 0.00 K/mm3 0.0-0.1 N MANUAL DIFF REQUIRED (test code = MDIFF) YES STAIN ACCEPTABILITY (test code = STN ACCEPTABLE) TOTAL CELLS COUNTED (test code = TCC) #CELLS SEGMENTED NEUTROPHILS (test code = SEG) % 39-69 LYMPHOCYTE (test code = LYMPH) % 25-55 MONOCYTE (test code = MON) % 0-10 EOSINOPHIL (test code = EOS) % 0.0-5.0 MORPHOLOGY COMMENT (test code = MOC) PLATELET ESTIMATE (test code = PLTEST) PLATELET MORPHOLOGY (test code = PLTMORPH) CBC W/MANUAL [id number] 07:52:00* Test Item Value Reference Range Interpretation Comments WHITE BLOOD CELL (test code = WBC) 9.4 K/mm3 4.5-12.5 N RED BLOOD CELL (test code = RBC) 2.86 mill/mm3 3.7-5.2 L HEMOGLOBIN (test code = HGB) 8.0 gram/dL 11.5-15.5 L HEMATOCRIT (test code = HCT) 25.6 % 36.0-46.0 L MEAN CELL VOLUME (test code = MCV) 89.5 fL 80-98 N MEAN CELL HGB (test code = MCH) 28.0 picogram 27.0-33.0 N MEAN CELL HGB CONCETRATION (test code = MCHC) 31.3 gram/dL 33.0-36. 0 L RED CELL DISTRIBUTION WIDTH (test code = RDW) 20.8 % 11.6-16. 2 H RED CELL DISTRIBUTION WIDTH SD (test code = RDW-SD) 63.2 fL 37 .0-51.0 H PLATELET COUNT (test code = PLT) 34 K/mm3 150-450 LL Results called to [id number] by VVARGHESE.CF2 11/13/18 0750Critical results verified and read back by Nurse? Y MEAN PLATELET VOLUME (test code = MPV) TEST NOT PERFORMED fL 6.7-11 .0 Unable to determine due to platelet abnormality , please seethe platelet morphology. IMMATURE GRANULOCYTE % (test code = IG%) 0.5 % 0.0-5.0 N NUCLEATED RBC % (test code = NRBC%) 0.0 % 0-0 N NEUTROPHIL # (test code = NT#) 4.66 K/mm3 1.8-7.7 N IMMATURE GRANULOCYTE # (test code = IG#) 0.05 x10 3/uL 0-0.03 H LYMPHOCYTE # (test code = LY#) 3.86 K/mm3 1.0-5.0 N MONOCYTE # (test code = MO#) 0.67 K/mm3 0-0.8 N EOSINOPHIL # (test code = EO#) 0.09 K/mm3 0.0-0.5 N BASOPHIL # (test code = BA#) 0.03 K/mm3 0.0-0.2 N NUCLEATED RBC # (test code = NRBC#) 0.00 K/mm3 0.0-0.1 N MANUAL DIFF REQUIRED (test code = MDIFF) YES STAIN ACCEPTABILITY (test code = STN ACCEPTABLE) TOTAL CELLS COUNTED (test code = TCC) #CELLS SEGMENTED NEUTROPHILS (test code = SEG) % 39-69 LYMPHOCYTE (test code = LYMPH) % 25-55 MONOCYTE (test code = MON) % 0-10 MORPHOLOGY COMMENT (test code = MOC) PLATELET ESTIMATE (test code = PLTEST) PLATELET MORPHOLOGY (test code = PLTMORPH) CBC W/MANUAL [id number] 07:52:00* Test Item Value Reference Range Interpretation Comments WHITE BLOOD CELL (test code = WBC) 9.4 K/mm3 4.5-12.5 N RED BLOOD CELL (test code = RBC) 2.86 mill/mm3 3.7-5.2 L HEMOGLOBIN (test code = HGB) 8.0 gram/dL 11.5-15.5 L HEMATOCRIT (test code = HCT) 25.6 % 36.0-46.0 L MEAN CELL VOLUME (test code = MCV) 89.5 fL 80-98 N MEAN CELL HGB (test code = MCH) 28.0 picogram 27.0-33.0 N MEAN CELL HGB CONCETRATION (test code = MCHC) 31.3 gram/dL 33.0-36. 0 L RED CELL DISTRIBUTION WIDTH (test code = RDW) 20.8 % 11.6-16. 2 H RED CELL DISTRIBUTION WIDTH SD (test code = RDW-SD) 63.2 fL 37 .0-51.0 H PLATELET COUNT (test code = PLT) 34 K/mm3 150-450 LL Results called to [id number] by MELISSA.CF2 11/13/18 0750Critical results verified and read back by Nurse? Y MEAN PLATELET VOLUME (test code = MPV) TEST NOT PERFORMED fL 6.7-11 .0 Unable to determine due to platelet abnormality , please seethe platelet morphology. IMMATURE GRANULOCYTE % (test code = IG%) 0.5 % 0.0-5.0 N NUCLEATED RBC % (test code = NRBC%) 0.0 % 0-0 N NEUTROPHIL # (test code = NT#) 4.66 K/mm3 1.8-7.7 N IMMATURE GRANULOCYTE # (test code = IG#) 0.05 x10 3/uL 0-0.03 H LYMPHOCYTE # (test code = LY#) 3.86 K/mm3 1.0-5.0 N MONOCYTE # (test code = MO#) 0.67 K/mm3 0-0.8 N EOSINOPHIL # (test code = EO#) 0.09 K/mm3 0.0-0.5 N BASOPHIL # (test code = BA#) 0.03 K/mm3 0.0-0.2 N NUCLEATED RBC # (test code = NRBC#) 0.00 K/mm3 0.0-0.1 N MANUAL DIFF REQUIRED (test code = MDIFF) YES STAIN ACCEPTABILITY (test code = STN ACCEPTABLE) TOTAL CELLS COUNTED (test code = TCC) #CELLS SEGMENTED NEUTROPHILS (test code = SEG) % 39-69 LYMPHOCYTE (test code = LYMPH) % 25-55 MONOCYTE (test code = MON) % 0-10 EOSINOPHIL (test code = EOS) % 0.0-5.0 CABOT RINGS (test code = CAB) MORPHOLOGY COMMENT (test code = MOC) PLATELET ESTIMATE (test code = PLTEST) PLATELET MORPHOLOGY (test code = PLTMORPH) BASIC METABOLIC [id number] 07:46:00* Test Item Value Reference Range Interpretation Comments SODIUM (test code = NA) 146 mmol/L 136-145 H POTASSIUM (test code = K) 2.9 mmol/L 3.5-5.1 L Re sults called to [id number] by ENMA 11/13/18 0745Critical results verified and read back by Nurse? Y CHLORIDE (test code = CL) 111.0 mmol/L 98-107 H CARBON DIOXIDE (test code = CO2) 21.0 mmol/L 21-32 N ANION GAP (test code = GAP) 16.9 10-20 N GLUCOSE (test code = GLU) 129 mg/dL 74-106 H BLOOD UREA NITROGEN (test code = BUN) 66 mg/dL 7-18 H GLOMERULAR FILTRATION RATE (test code = GFR) 18 mL/min >=60 Estimated GFR by using Modified MDRD formula.Chronic kidney disease is defined as either kidney damageor GFR <60 mL/min/1.73 m2 for >3 months. CREATININE (test code = CREAT) 2.80 mg/dL 0.55-1.02 H Note change in reference range due to change in reagent. BUN/CREATININE RATIO (test code = BUN/CREA) 23.6 10-20 H CALCIUM (test code = CA) 8.3 mg/dL 8.5-10.1 L [id number] 07:46:00* Test Item Value Reference Range Interpretation Comments MAGNESIUM (test code = MAG) 2.2 mg/dL 1.8-2.4 N CBC W/MANUAL [id number] 20:48:00* Test Item Value Reference Range Interpretation Comments WHITE BLOOD CELL (test code = WBC) 11.8 K/mm3 4.5-12.5 N RED BLOOD CELL (test code = RBC) 3.25 mill/mm3 3.7-5.2 L HEMOGLOBIN (test code = HGB) 9.0 gram/dL 11.5-15.5 L HEMATOCRIT (test code = HCT) 29.0 % 36.0-46.0 L MEAN CELL VOLUME (test code = MCV) 89.2 fL 80-98 N MEAN CELL HGB (test code = MCH) 27.7 picogram 27.0-33.0 N MEAN CELL HGB CONCETRATION (test code = MCHC) 31.0 gram/dL 33.0-36. 0 L RED CELL DISTRIBUTION WIDTH (test code = RDW) 20.4 % 11.6-16. 2 H RED CELL DISTRIBUTION WIDTH SD (test code = RDW-SD) 63.6 fL 37 .0-51.0 H PLATELET COUNT (test code = PLT) 37 K/mm3 150-450 LL Results called to [id number] by SHAKEEL 11/12/18 2009Critical results verified and read back by Nurse? Y MEAN PLATELET VOLUME (test code = MPV) TEST NOT PERFORMED fL 6.7-11 .0 IMMATURE GRANULOCYTE % (test code = IG%) 0.4 % 0.0-5.0 N NUCLEATED RBC % (test code = NRBC%) 0.0 % 0-0 N NEUTROPHIL # (test code = NT#) 5.69 K/mm3 1.8-7.7 N IMMATURE GRANULOCYTE # (test code = IG#) 0.05 x10 3/uL 0-0.03 H LYMPHOCYTE # (test code = LY#) 5.03 K/mm3 1.0-5.0 H MONOCYTE # (test code = MO#) 0.79 K/mm3 0-0.8 N EOSINOPHIL # (test code = EO#) 0.16 K/mm3 0.0-0.5 N BASOPHIL # (test code = BA#) 0.05 K/mm3 0.0-0.2 N NUCLEATED RBC # (test code = NRBC#) 0.00 K/mm3 0.0-0.1 N MANUAL DIFF REQUIRED (test code = MDIFF) YES STAIN ACCEPTABILITY (test code = STN ACCEPTABLE) STAIN ACCEPTABLE TOTAL CELLS COUNTED (test code = TCC) 115 #CELLS SEGMENTED NEUTROPHILS (test code = SEG) 65.2 % 39-69 N BAND NEUTROPHIL (test code = BAND) 0.9 % 0-10 N LYMPHOCYTE (test code = LYMPH) 27.8 % 25-55 N REACTIVE LYMPH (test code = RELYMPH) 2.6 % MONOCYTE (test code = MON) 3.5 % 0-10 N EOSINOPHIL (test code = EOS) 0 % 0.0-5.0 N BASOPHIL (test code = BASO) 0 % 0-1.0 N METAMYELOCYTE (test code = META) 0 % 0-0 N MYELOCYTE (test code = MYELO) 0 % 0.0-0.0 N PROMYELOCYTE (test code = PROM) 0 % 0-0 N POLYCHROMASIA (test code = POLC) 1+ HYPOCHROMIA (test code = HYPO) 2+ ANISOCYTOSIS (test code = ANISO) 2+ MICROCYTOSIS (test code = MICR) 1+ PLATELET ESTIMATE (test code = PLTEST) DECREASED PLATELET MORPHOLOGY (test code = PLTMORPH) NORMAL IMMATURE FORMS (test code = IMMAT) 0 % 0-0 N PT CONFUSED, SABINE TORRES. 11/12/18 1543BASIC METABOLIC [id number] 20:29:00* Test Item Value Reference Range Interpretation Comments SODIUM (test code = NA) 144 mmol/L 136-145 N POTASSIUM (test code = K) 3.3 mmol/L 3.5-5.1 L CHLORIDE (test code = CL) 109.0 mmol/L 98-107 H CARBON DIOXIDE (test code = CO2) 21.0 mmol/L 21-32 N ANION GAP (test code = GAP) 17.3 10-20 N GLUCOSE (test code = GLU) 142 mg/dL 74-106 H BLOOD UREA NITROGEN (test code = BUN) 65 mg/dL 7-18 H GLOMERULAR FILTRATION RATE (test code = GFR) 18 mL/min >=60 Estimated GFR by using Modified MDRD formula.Chronic kidney disease is defined as either kidney damageor GFR <60 mL/min/1.73 m2 for >3 months. CREATININE (test code = CREAT) 2.70 mg/dL 0.55-1.02 H Note change in reference range due to change in reagent. BUN/CREATININE RATIO (test code = BUN/CREA) 24.1 10-20 H CALCIUM (test code = CA) 8.3 mg/dL 8.5-10.1 L PT CONFUSED, SABINE TORRES. 11/12/18 1542PT SERVANDOSTICK.NOTIFIED SABINE Carter AB.JB1 11/12/18 [id number] 20:23:00* Test Item Value Reference Range Interpretation Comments MAGNESIUM (test code = MAG) 2.0 mg/dL 1.8-2.4 N PT CONFUSED, SABINE TORRES. 11/12/18 1544PT REFUSING SABINE TORRES.KP2 10/18 02/03 1014PT HARD STICK NOTIFIED SABINE GUTIERRES @V.LAB.SP3 11/12/18 0558BASI METABOLIC [id number] 20:21:00* Test Item Value Reference Range Interpretation Comments SODIUM (test code = NA) 144 mmol/L 136-145 N POTASSIUM (test code = K) 3.3 mmol/L 3.5-5.1 L CHLORIDE (test code = CL) 109.0 mmol/L 98-107 H CARBON DIOXIDE (test code = CO2) mmol/L 21-32 ANION GAP (test code = GAP) 10-20 GLUCOSE (test code = GLU) mg/dL 74-106 BLOOD UREA NITROGEN (test code = BUN) mg/dL 7-18 GLOMERULAR FILTRATION RATE (test code = GFR) mL/min >=60 CREATININE (test code = CREAT) mg/dL 0.55-1.02 BUN/CREATININE RATIO (test code = BUN/CREA) 10-20 CALCIUM (test code = CA) mg/dL 8.5-10.1 PT CONFUSED, SABINE TayLAB.KW 11/12/18 1542PT HARDSTICK.NOTIFIED SABINE Carter AB.JB1 11/12/18 1211CBC W/MANUAL [id number] 20:20:00* Test Item Value Reference Range Interpretation Comments WHITE BLOOD CELL (test code = WBC) 11.8 K/mm3 4.5-12.5 N RED BLOOD CELL (test code = RBC) 3.25 mill/mm3 3.7-5.2 L HEMOGLOBIN (test code = HGB) 9.0 gram/dL 11.5-15.5 L HEMATOCRIT (test code = HCT) 29.0 % 36.0-46.0 L MEAN CELL VOLUME (test code = MCV) 89.2 fL 80-98 N MEAN CELL HGB (test code = MCH) 27.7 picogram 27.0-33.0 N MEAN CELL HGB CONCETRATION (test code = MCHC) 31.0 gram/dL 33.0-36. 0 L RED CELL DISTRIBUTION WIDTH (test code = RDW) 20.4 % 11.6-16. 2 H RED CELL DISTRIBUTION WIDTH SD (test code = RDW-SD) 63.6 fL 37 .0-51.0 H PLATELET COUNT (test code = PLT) 37 K/mm3 150-450 LL Results called to [id number] by V.LABWilliamsSZ 11/12/18 2009Critical results verified and read back by Nurse? Y MEAN PLATELET VOLUME (test code = MPV) TEST NOT PERFORMED fL 6.7-11 .0 IMMATURE GRANULOCYTE % (test code = IG%) 0.4 % 0.0-5.0 N NUCLEATED RBC % (test code = NRBC%) 0.0 % 0-0 N NEUTROPHIL # (test code = NT#) 5.69 K/mm3 1.8-7.7 N IMMATURE GRANULOCYTE # (test code = IG#) 0.05 x10 3/uL 0-0.03 H LYMPHOCYTE # (test code = LY#) 5.03 K/mm3 1.0-5.0 H MONOCYTE # (test code = MO#) 0.79 K/mm3 0-0.8 N EOSINOPHIL # (test code = EO#) 0.16 K/mm3 0.0-0.5 N BASOPHIL # (test code = BA#) 0.05 K/mm3 0.0-0.2 N NUCLEATED RBC # (test code = NRBC#) 0.00 K/mm3 0.0-0.1 N MANUAL DIFF REQUIRED (test code = MDIFF) YES STAIN ACCEPTABILITY (test code = STN ACCEPTABLE) TOTAL CELLS COUNTED (test code = TCC) #CELLS SEGMENTED NEUTROPHILS (test code = SEG) % 39-69 LYMPHOCYTE (test code = LYMPH) % 25-55 MONOCYTE (test code = MON) % 0-10 MORPHOLOGY COMMENT (test code = MOC) PLATELET ESTIMATE (test code = PLTEST) PLATELET MORPHOLOGY (test code = PLTMORPH) PT CONFUSED, RN DOLLY TayLABMOHIT 11/12/18 1543CBC W/MANUAL [id number] 20:11:00* Test Item Value Reference Range Interpretation Comments WHITE BLOOD CELL (test code = WBC) 11.8 K/mm3 4.5-12.5 N RED BLOOD CELL (test code = RBC) 3.25 mill/mm3 3.7-5.2 L HEMOGLOBIN (test code = HGB) 9.0 gram/dL 11.5-15.5 L HEMATOCRIT (test code = HCT) 29.0 % 36.0-46.0 L MEAN CELL VOLUME (test code = MCV) 89.2 fL 80-98 N MEAN CELL HGB (test code = MCH) 27.7 picogram 27.0-33.0 N MEAN CELL HGB CONCETRATION (test code = MCHC) 31.0 gram/dL 33.0-36. 0 L RED CELL DISTRIBUTION WIDTH (test code = RDW) 20.4 % 11.6-16. 2 H RED CELL DISTRIBUTION WIDTH SD (test code = RDW-SD) 63.6 fL 37 .0-51.0 H PLATELET COUNT (test code = PLT) 37 K/mm3 150-450 LL Results called to by SHAKEEL 11/12/18 2009Critical results verified and read back by Nurse? Y MEAN PLATELET VOLUME (test code = MPV) TEST NOT PERFORMED fL 6.7-11 .0 IMMATURE GRANULOCYTE % (test code = IG%) 0.4 % 0.0-5.0 N NUCLEATED RBC % (test code = NRBC%) 0.0 % 0-0 N NEUTROPHIL # (test code = NT#) 5.69 K/mm3 1.8-7.7 N IMMATURE GRANULOCYTE # (test code = IG#) 0.05 x10 3/uL 0-0.03 H LYMPHOCYTE # (test code = LY#) 5.03 K/mm3 1.0-5.0 H MONOCYTE # (test code = MO#) 0.79 K/mm3 0-0.8 N EOSINOPHIL # (test code = EO#) 0.16 K/mm3 0.0-0.5 N BASOPHIL # (test code = BA#) 0.05 K/mm3 0.0-0.2 N NUCLEATED RBC # (test code = NRBC#) 0.00 K/mm3 0.0-0.1 N MANUAL DIFF REQUIRED (test code = MDIFF) YES STAIN ACCEPTABILITY (test code = STN ACCEPTABLE) TOTAL CELLS COUNTED (test code = TCC) #CELLS SEGMENTED NEUTROPHILS (test code = SEG) % 39-69 LYMPHOCYTE (test code = LYMPH) % 25-55 MONOCYTE (test code = MON) % 0-10 EOSINOPHIL (test code = EOS) % 0.0-5.0 CABOT RINGS (test code = CAB) MORPHOLOGY COMMENT (test code = MOC) PLATELET ESTIMATE (test code = PLTEST) PLATELET MORPHOLOGY (test code = PLTMORPH) PT EARNEST, SABINE ALBERTO V.LAB.KW 11/12/18 1543CBC W/MANUAL [id number] 20:11:00* Test Item Value Reference Range Interpretation Comments WHITE BLOOD CELL (test code = WBC) 11.8 K/mm3 4.5-12.5 N RED BLOOD CELL (test code = RBC) 3.25 mill/mm3 3.7-5.2 L HEMOGLOBIN (test code = HGB) 9.0 gram/dL 11.5-15.5 L HEMATOCRIT (test code = HCT) 29.0 % 36.0-46.0 L MEAN CELL VOLUME (test code = MCV) 89.2 fL 80-98 N MEAN CELL HGB (test code = MCH) 27.7 picogram 27.0-33.0 N MEAN CELL HGB CONCETRATION (test code = MCHC) 31.0 gram/dL 33.0-36. 0 L RED CELL DISTRIBUTION WIDTH (test code = RDW) 20.4 % 11.6-16. 2 H RED CELL DISTRIBUTION WIDTH SD (test code = RDW-SD) 63.6 fL 37 .0-51.0 H PLATELET COUNT (test code = PLT) 37 K/mm3 150-450 LL Results called to by V.LAB.SZ 11/12/18 2009Critical results verified and read back by Nurse? Y MEAN PLATELET VOLUME (test code = MPV) TEST NOT PERFORMED fL 6.7-11 .0 IMMATURE GRANULOCYTE % (test code = IG%) 0.4 % 0.0-5.0 N NUCLEATED RBC % (test code = NRBC%) 0.0 % 0-0 N NEUTROPHIL # (test code = NT#) 5.69 K/mm3 1.8-7.7 N IMMATURE GRANULOCYTE # (test code = IG#) 0.05 x10 3/uL 0-0.03 H LYMPHOCYTE # (test code = LY#) 5.03 K/mm3 1.0-5.0 H MONOCYTE # (test code = MO#) 0.79 K/mm3 0-0.8 N EOSINOPHIL # (test code = EO#) 0.16 K/mm3 0.0-0.5 N BASOPHIL # (test code = BA#) 0.05 K/mm3 0.0-0.2 N NUCLEATED RBC # (test code = NRBC#) 0.00 K/mm3 0.0-0.1 N MANUAL DIFF REQUIRED (test code = MDIFF) YES STAIN ACCEPTABILITY (test code = STN ACCEPTABLE) TOTAL CELLS COUNTED (test code = TCC) #CELLS SEGMENTED NEUTROPHILS (test code = SEG) % 39-69 LYMPHOCYTE (test code = LYMPH) % 25-55 MONOCYTE (test code = MON) % 0-10 EOSINOPHIL (test code = EOS) % 0.0-5.0 CABOT RINGS (test code = CAB) MORPHOLOGY COMMENT (test code = MOC) PLATELET ESTIMATE (test code = PLTEST) PLATELET MORPHOLOGY (test code = PLTMORPH) PT CONFUSED, RN DOLLY V.LAB.KW 11/12/18 1543CBC W/MANUAL [id number] 20:11:00* Test Item Value Reference Range Interpretation Comments WHITE BLOOD CELL (test code = WBC) 11.8 K/mm3 4.5-12.5 N RED BLOOD CELL (test code = RBC) 3.25 mill/mm3 3.7-5.2 L HEMOGLOBIN (test code = HGB) 9.0 gram/dL 11.5-15.5 L HEMATOCRIT (test code = HCT) 29.0 % 36.0-46.0 L MEAN CELL VOLUME (test code = MCV) 89.2 fL 80-98 N MEAN CELL HGB (test code = MCH) 27.7 picogram 27.0-33.0 N MEAN CELL HGB CONCETRATION (test code = MCHC) 31.0 gram/dL 33.0-36. 0 L RED CELL DISTRIBUTION WIDTH (test code = RDW) 20.4 % 11.6-16. 2 H RED CELL DISTRIBUTION WIDTH SD (test code = RDW-SD) 63.6 fL 37 .0-51.0 H PLATELET COUNT (test code = PLT) 37 K/mm3 150-450 LL Results called to by V.LAB.SZ 11/12/18 2009Critical results verified and read back by Nurse? Y MEAN PLATELET VOLUME (test code = MPV) TEST NOT PERFORMED fL 6.7-11 .0 IMMATURE GRANULOCYTE % (test code = IG%) 0.4 % 0.0-5.0 N NUCLEATED RBC % (test code = NRBC%) 0.0 % 0-0 N NEUTROPHIL # (test code = NT#) 5.69 K/mm3 1.8-7.7 N IMMATURE GRANULOCYTE # (test code = IG#) 0.05 x10 3/uL 0-0.03 H LYMPHOCYTE # (test code = LY#) 5.03 K/mm3 1.0-5.0 H MONOCYTE # (test code = MO#) 0.79 K/mm3 0-0.8 N EOSINOPHIL # (test code = EO#) 0.16 K/mm3 0.0-0.5 N BASOPHIL # (test code = BA#) 0.05 K/mm3 0.0-0.2 N NUCLEATED RBC # (test code = NRBC#) 0.00 K/mm3 0.0-0.1 N MANUAL DIFF REQUIRED (test code = MDIFF) YES STAIN ACCEPTABILITY (test code = STN ACCEPTABLE) TOTAL CELLS COUNTED (test code = TCC) #CELLS SEGMENTED NEUTROPHILS (test code = SEG) % 39-69 LYMPHOCYTE (test code = LYMPH) % 25-55 MONOCYTE (test code = MON) % 0-10 EOSINOPHIL (test code = EOS) % 0.0-5.0 MORPHOLOGY COMMENT (test code = MOC) PLATELET ESTIMATE (test code = PLTEST) PLATELET MORPHOLOGY (test code = PLTMORPH) PT CONFUSED, RN DOLLY TORRES. 11/12/18 1543CBC W/MANUAL [id number] 20:11:00* Test Item Value Reference Range Interpretation Comments WHITE BLOOD CELL (test code = WBC) 11.8 K/mm3 4.5-12.5 N RED BLOOD CELL (test code = RBC) 3.25 mill/mm3 3.7-5.2 L HEMOGLOBIN (test code = HGB) 9.0 gram/dL 11.5-15.5 L HEMATOCRIT (test code = HCT) 29.0 % 36.0-46.0 L MEAN CELL VOLUME (test code = MCV) 89.2 fL 80-98 N MEAN CELL HGB (test code = MCH) 27.7 picogram 27.0-33.0 N MEAN CELL HGB CONCETRATION (test code = MCHC) 31.0 gram/dL 33.0-36. 0 L RED CELL DISTRIBUTION WIDTH (test code = RDW) 20.4 % 11.6-16. 2 H RED CELL DISTRIBUTION WIDTH SD (test code = RDW-SD) 63.6 fL 37 .0-51.0 H PLATELET COUNT (test code = PLT) 37 K/mm3 150-450 LL Results called to by [facility] 11/12/18 2009Critical results verified and read back by Nurse? Y MEAN PLATELET VOLUME (test code = MPV) TEST NOT PERFORMED fL 6.7-11 .0 IMMATURE GRANULOCYTE % (test code = IG%) 0.4 % 0.0-5.0 N NUCLEATED RBC % (test code = NRBC%) 0.0 % 0-0 N NEUTROPHIL # (test code = NT#) 5.69 K/mm3 1.8-7.7 N IMMATURE GRANULOCYTE # (test code = IG#) 0.05 x10 3/uL 0-0.03 H LYMPHOCYTE # (test code = LY#) 5.03 K/mm3 1.0-5.0 H MONOCYTE # (test code = MO#) 0.79 K/mm3 0-0.8 N EOSINOPHIL # (test code = EO#) 0.16 K/mm3 0.0-0.5 N BASOPHIL # (test code = BA#) 0.05 K/mm3 0.0-0.2 N NUCLEATED RBC # (test code = NRBC#) 0.00 K/mm3 0.0-0.1 N MANUAL DIFF REQUIRED (test code = MDIFF) YES STAIN ACCEPTABILITY (test code = STN ACCEPTABLE) TOTAL CELLS COUNTED (test code = TCC) #CELLS SEGMENTED NEUTROPHILS (test code = SEG) % 39-69 LYMPHOCYTE (test code = LYMPH) % 25-55 MONOCYTE (test code = MON) % 0-10 MORPHOLOGY COMMENT (test code = MOC) PLATELET ESTIMATE (test code = PLTEST) PLATELET MORPHOLOGY (test code = PLTMORPH) PT CONFUSED, RN DOLLY [facility].MARGO 11/12/18 1543CBC W/MANUAL [id number] 20:11:00* Test Item Value Reference Range Interpretation Comments WHITE BLOOD CELL (test code = WBC) 11.8 K/mm3 4.5-12.5 N RED BLOOD CELL (test code = RBC) 3.25 mill/mm3 3.7-5.2 L HEMOGLOBIN (test code = HGB) 9.0 gram/dL 11.5-15.5 L HEMATOCRIT (test code = HCT) 29.0 % 36.0-46.0 L MEAN CELL VOLUME (test code = MCV) 89.2 fL 80-98 N MEAN CELL HGB (test code = MCH) 27.7 picogram 27.0-33.0 N MEAN CELL HGB CONCETRATION (test code = MCHC) 31.0 gram/dL 33.0-36. 0 L RED CELL DISTRIBUTION WIDTH (test code = RDW) 20.4 % 11.6-16. 2 H RED CELL DISTRIBUTION WIDTH SD (test code = RDW-SD) 63.6 fL 37 .0-51.0 H PLATELET COUNT (test code = PLT) 37 K/mm3 150-450 LL Results called to by V.LAB.SZ 11/12/18 2009Critical results verified and read back by Nurse? Y MEAN PLATELET VOLUME (test code = MPV) TEST NOT PERFORMED fL 6.7-11 .0 IMMATURE GRANULOCYTE % (test code = IG%) 0.4 % 0.0-5.0 N NUCLEATED RBC % (test code = NRBC%) 0.0 % 0-0 N NEUTROPHIL # (test code = NT#) 5.69 K/mm3 1.8-7.7 N IMMATURE GRANULOCYTE # (test code = IG#) 0.05 x10 3/uL 0-0.03 H LYMPHOCYTE # (test code = LY#) 5.03 K/mm3 1.0-5.0 H MONOCYTE # (test code = MO#) 0.79 K/mm3 0-0.8 N EOSINOPHIL # (test code = EO#) 0.16 K/mm3 0.0-0.5 N BASOPHIL # (test code = BA#) 0.05 K/mm3 0.0-0.2 N NUCLEATED RBC # (test code = NRBC#) 0.00 K/mm3 0.0-0.1 N MANUAL DIFF REQUIRED (test code = MDIFF) YES STAIN ACCEPTABILITY (test code = STN ACCEPTABLE) TOTAL CELLS COUNTED (test code = TCC) #CELLS SEGMENTED NEUTROPHILS (test code = SEG) % 39-69 LYMPHOCYTE (test code = LYMPH) % 25-55 MONOCYTE (test code = MON) % 0-10 EOSINOPHIL (test code = EOS) % 0.0-5.0 CABOT RINGS (test code = CAB) MORPHOLOGY COMMENT (test code = MOC) PLATELET ESTIMATE (test code = PLTEST) PLATELET MORPHOLOGY (test code = PLTMORPH) PT CONFUSED, RN DOLLY V.LAB. 11/12/18 [id number] METABOLIC PANEL 2018-11-11 06:42:00* Test Item Value Reference Range Interpretation Comments SODIUM (test code = NA) 143 mmol/L 136-145 N POTASSIUM (test code = K) 3.7 mmol/L 3.5-5.1 N CHLORIDE (test code = CL) 110.0 mmol/L 98-107 H CARBON DIOXIDE (test code = CO2) 20.0 mmol/L 21-32 L ANION GAP (test code = GAP) 16.7 10-20 N GLUCOSE (test code = GLU) 107 mg/dL 74-106 H BLOOD UREA NITROGEN (test code = BUN) 63 mg/dL 7-18 H GLOMERULAR FILTRATION RATE (test code = GFR) 20 mL/min >=60 Estimated GFR by using Modified MDRD formula.Chronic kidney disease is defined as either kidney damageor GFR <60 mL/min/1.73 m2 for >3 months. CREATININE (test code = CREAT) 2.50 mg/dL 0.55-1.02 H Note change in reference range due to change in reagent. BUN/CREATININE RATIO (test code = BUN/CREA) 25.2 10-20 H TOTAL PROTEIN (test code = PROT) 5.8 gram/dL 6.4-8.2 L ALBUMIN (test code = ALB) 1.4 g/dL 3.4-5.0 L GLOBULIN (test code = GLOB) 4.4 gram/dL 2.7-4.2 H ALBUMIN/GLOBULIN RATIO (test code = A/G) 0.3 0.75-1.50 L CALCIUM (test code = CA) 8.5 mg/dL 8.5-10.1 N BILIRUBIN TOTAL (test code = BILT) 1.40 mg/dL 0.0-1.0 H SGOT/AST (test code = AST) 30 IUnit/L 15-37 N SGPT/ALT (test code = ALT) 28 IUnit/L 12-78 N ALKALINE PHOSPHATASE TOTAL (test code = ALKP) 337 IUnit/L 45-117 H Note change in reference range due to change in reagent. [id number] 06:42:00* Test Item Value Reference Range Interpretation Comments MAGNESIUM (test code = MAG) 2.1 mg/dL 1.8-2.4 N COMPREHENSIVE METABOLIC [id number] 06:26:00* Test Item Value Reference Range Interpretation Comments SODIUM (test code = NA) 143 mmol/L 136-145 N POTASSIUM (test code = K) 3.7 mmol/L 3.5-5.1 N CHLORIDE (test code = CL) 110.0 mmol/L 98-107 H CARBON DIOXIDE (test code = CO2) mmol/L 21-32 ANION GAP (test code = GAP) 10-20 GLUCOSE (test code = GLU) mg/dL 74-106 BLOOD UREA NITROGEN (test code = BUN) mg/dL 7-18 GLOMERULAR FILTRATION RATE (test code = GFR) mL/min >=60 CREATININE (test code = CREAT) mg/dL 0.55-1.02 BUN/CREATININE RATIO (test code = BUN/CREA) 10-20 TOTAL PROTEIN (test code = PROT) gram/dL 6.4-8.2 ALBUMIN (test code = ALB) g/dL 3.4-5.0 GLOBULIN (test code = GLOB) gram/dL 2.7-4.2 ALBUMIN/GLOBULIN RATIO (test code = A/G) 0.75-1.50 CALCIUM (test code = CA) mg/dL 8.5-10.1 BILIRUBIN TOTAL (test code = BILT) mg/dL 0.0-1.0 SGOT/AST (test code = AST) IUnit/L 15-37 SGPT/ALT (test code = ALT) IUnit/L 12-78 ALKALINE PHOSPHATASE TOTAL (test code = ALKP) IUnit/L 45-117 [id number] 06:26:00* Test Item Value Reference Range Interpretation Comments MAGNESIUM (test code = MAG) mg/dL 1.8-2.4 BASIC METABOLIC [id number] 05:32:00* Test Item Value Reference Range Interpretation Comments SODIUM (test code = NA) 141 mmol/L 136-145 N POTASSIUM (test code = K) 3.0 mmol/L 3.5-5.1 L CHLORIDE (test code = CL) 109.0 mmol/L 98-107 H CARBON DIOXIDE (test code = CO2) 21.0 mmol/L 21-32 N ANION GAP (test code = GAP) 14.0 10-20 N GLUCOSE (test code = GLU) 119 mg/dL 74-106 H BLOOD UREA NITROGEN (test code = BUN) 63 mg/dL 7-18 H GLOMERULAR FILTRATION RATE (test code = GFR) 20 mL/min >=60 Estimated GFR by using Modified MDRD formula.Chronic kidney disease is defined as either kidney damageor GFR <60 mL/min/1.73 m2 for >3 months. CREATININE (test code = CREAT) 2.50 mg/dL 0.55-1.02 H Note change in reference range due to change in reagent. BUN/CREATININE RATIO (test code = BUN/CREA) 25.2 10-20 H CALCIUM (test code = CA) 8.3 mg/dL 8.5-10.1 L [id number] 09:48:00* Test Item Value Reference Range Interpretation Comments MAGNESIUM (test code = MAG) 1.9 mg/dL 1.8-2.4 N CBC W/MANUAL [id number] 09:17:00* Test Item Value Reference Range Interpretation Comments WHITE BLOOD CELL (test code = WBC) 11.3 K/mm3 4.5-12.5 N RED BLOOD CELL (test code = RBC) 3.30 mill/mm3 3.7-5.2 L HEMOGLOBIN (test code = HGB) 8.9 gram/dL 11.5-15.5 L HEMATOCRIT (test code = HCT) 28.5 % 36.0-46.0 L MEAN CELL VOLUME (test code = MCV) 86.4 fL 80-98 N MEAN CELL HGB (test code = MCH) 27.0 picogram 27.0-33.0 N MEAN CELL HGB CONCETRATION (test code = MCHC) 31.2 gram/dL 33.0-36. 0 L RED CELL DISTRIBUTION WIDTH (test code = RDW) 17.5 % 11.6-16. 2 H RED CELL DISTRIBUTION WIDTH SD (test code = RDW-SD) 49.3 fL 37 .0-51.0 N PLATELET COUNT (test code = PLT) 25 K/mm3 150-450 LL Results called to [id number] by MADELAINEKNKetan 11/09/18 0804Critical results verified and read back by Nurse? Y MEAN PLATELET VOLUME (test code = MPV) TEST NOT PERFORMED fL 6.7-11 .0 IMMATURE GRANULOCYTE % (test code = IG%) 0.7 % 0.0-5.0 N NUCLEATED RBC % (test code = NRBC%) 0.0 % 0-0 N NEUTROPHIL # (test code = NT#) 5.37 K/mm3 1.8-7.7 N IMMATURE GRANULOCYTE # (test code = IG#) 0.08 x10 3/uL 0-0.03 H LYMPHOCYTE # (test code = LY#) 4.69 K/mm3 1.0-5.0 N MONOCYTE # (test code = MO#) 1.06 K/mm3 0-0.8 H EOSINOPHIL # (test code = EO#) 0.01 K/mm3 0.0-0.5 N BASOPHIL # (test code = BA#) 0.05 K/mm3 0.0-0.2 N NUCLEATED RBC # (test code = NRBC#) 0.00 K/mm3 0.0-0.1 N MANUAL DIFF REQUIRED (test code = MDIFF) YES STAIN ACCEPTABILITY (test code = STN ACCEPTABLE) STAIN ACCEPTABLE TOTAL CELLS COUNTED (test code = TCC) 110 #CELLS SEGMENTED NEUTROPHILS (test code = SEG) 62.7 % 39-69 N BAND NEUTROPHIL (test code = BAND) 0 % 0-10 N LYMPHOCYTE (test code = LYMPH) 28.2 % 25-55 N REACTIVE LYMPH (test code = RELYMPH) 0 % MONOCYTE (test code = MON) 6.4 % 0-10 N EOSINOPHIL (test code = EOS) 0 % 0.0-5.0 N BASOPHIL (test code = BASO) 2.7 % 0-1.0 H METAMYELOCYTE (test code = META) 0 % 0-0 N MYELOCYTE (test code = MYELO) 0 % 0.0-0.0 N PROMYELOCYTE (test code = PROM) 0 % 0-0 N POLYCHROMASIA (test code = POLC) 3+ POIKILOCYTOSIS (test code = POIK) 2+ ANISOCYTOSIS (test code = ANISO) 2+ MICROCYTOSIS (test code = MICR) 1+ MACROCYTOSIS (test code = MACR) 2+ JAYLA CELLS (test code = JAYLA) 1+ NONE PLATELET ESTIMATE (test code = PLTEST) DECREASED PLATELET MORPHOLOGY (test code = PLTMORPH) NORMAL IMMATURE FORMS (test code = IMMAT) 0 % BASIC METABOLIC [id number] 08:22:00* Test Item Value Reference Range Interpretation Comments SODIUM (test code = NA) 143 mmol/L 136-145 N POTASSIUM (test code = K) 2.9 mmol/L 3.5-5.1 L Re sults called to [id number] by GISELLE 11/09/18 0820Critical results verified and read back by Nurse? Y CHLORIDE (test code = CL) 111.0 mmol/L 98-107 H CARBON DIOXIDE (test code = CO2) 19.0 mmol/L 21-32 L ANION GAP (test code = GAP) 15.9 10-20 N GLUCOSE (test code = GLU) 111 mg/dL 74-106 H BLOOD UREA NITROGEN (test code = BUN) 57 mg/dL 7-18 H GLOMERULAR FILTRATION RATE (test code = GFR) 19 mL/min >=60 Estimated GFR by using Modified MDRD formula.Chronic kidney disease is defined as either kidney damageor GFR <60 mL/min/1.73 m2 for >3 months. CREATININE (test code = CREAT) 2.60 mg/dL 0.55-1.02 H Note change in reference range due to change in reagent. BUN/CREATININE RATIO (test code = BUN/CREA) 21.9 10-20 H CALCIUM (test code = CA) 8.4 mg/dL 8.5-10.1 L CBC W/MANUAL [id number] 08:08:00* Test Item Value Reference Range Interpretation Comments WHITE BLOOD CELL (test code = WBC) 11.3 K/mm3 4.5-12.5 N RED BLOOD CELL (test code = RBC) 3.30 mill/mm3 3.7-5.2 L HEMOGLOBIN (test code = HGB) 8.9 gram/dL 11.5-15.5 L HEMATOCRIT (test code = HCT) 28.5 % 36.0-46.0 L MEAN CELL VOLUME (test code = MCV) 86.4 fL 80-98 N MEAN CELL HGB (test code = MCH) 27.0 picogram 27.0-33.0 N MEAN CELL HGB CONCETRATION (test code = MCHC) 31.2 gram/dL 33.0-36. 0 L RED CELL DISTRIBUTION WIDTH (test code = RDW) 17.5 % 11.6-16. 2 H RED CELL DISTRIBUTION WIDTH SD (test code = RDW-SD) 49.3 fL 37 .0-51.0 N PLATELET COUNT (test code = PLT) 25 K/mm3 150-450 LL Results called to [id number] by ERIC 11/09/18 0804Critical results verified and read back by Nurse? Y MEAN PLATELET VOLUME (test code = MPV) TEST NOT PERFORMED fL 6.7-11 .0 IMMATURE GRANULOCYTE % (test code = IG%) 0.7 % 0.0-5.0 N NUCLEATED RBC % (test code = NRBC%) 0.0 % 0-0 N NEUTROPHIL # (test code = NT#) 5.37 K/mm3 1.8-7.7 N IMMATURE GRANULOCYTE # (test code = IG#) 0.08 x10 3/uL 0-0.03 H LYMPHOCYTE # (test code = LY#) 4.69 K/mm3 1.0-5.0 N MONOCYTE # (test code = MO#) 1.06 K/mm3 0-0.8 H EOSINOPHIL # (test code = EO#) 0.01 K/mm3 0.0-0.5 N BASOPHIL # (test code = BA#) 0.05 K/mm3 0.0-0.2 N NUCLEATED RBC # (test code = NRBC#) 0.00 K/mm3 0.0-0.1 N MANUAL DIFF REQUIRED (test code = MDIFF) YES STAIN ACCEPTABILITY (test code = STN ACCEPTABLE) TOTAL CELLS COUNTED (test code = TCC) #CELLS SEGMENTED NEUTROPHILS (test code = SEG) % 39-69 LYMPHOCYTE (test code = LYMPH) % 25-55 MONOCYTE (test code = MON) % 0-10 EOSINOPHIL (test code = EOS) % 0.0-5.0 CABOT RINGS (test code = CAB) MORPHOLOGY COMMENT (test code = MOC) PLATELET ESTIMATE (test code = PLTEST) PLATELET MORPHOLOGY (test code = PLTMORPH) CBC W/MANUAL [id number] 08:08:00* Test Item Value Reference Range Interpretation Comments WHITE BLOOD CELL (test code = WBC) 11.3 K/mm3 4.5-12.5 N RED BLOOD CELL (test code = RBC) 3.30 mill/mm3 3.7-5.2 L HEMOGLOBIN (test code = HGB) 8.9 gram/dL 11.5-15.5 L HEMATOCRIT (test code = HCT) 28.5 % 36.0-46.0 L MEAN CELL VOLUME (test code = MCV) 86.4 fL 80-98 N MEAN CELL HGB (test code = MCH) 27.0 picogram 27.0-33.0 N MEAN CELL HGB CONCETRATION (test code = MCHC) 31.2 gram/dL 33.0-36. 0 L RED CELL DISTRIBUTION WIDTH (test code = RDW) 17.5 % 11.6-16. 2 H RED CELL DISTRIBUTION WIDTH SD (test code = RDW-SD) 49.3 fL 37 .0-51.0 N PLATELET COUNT (test code = PLT) 25 K/mm3 150-450 LL Results called to [id number] by ERIC 11/09/18 0804Critical results verified and read back by Nurse? Y MEAN PLATELET VOLUME (test code = MPV) TEST NOT PERFORMED fL 6.7-11 .0 IMMATURE GRANULOCYTE % (test code = IG%) 0.7 % 0.0-5.0 N NUCLEATED RBC % (test code = NRBC%) 0.0 % 0-0 N NEUTROPHIL # (test code = NT#) 5.37 K/mm3 1.8-7.7 N IMMATURE GRANULOCYTE # (test code = IG#) 0.08 x10 3/uL 0-0.03 H LYMPHOCYTE # (test code = LY#) 4.69 K/mm3 1.0-5.0 N MONOCYTE # (test code = MO#) 1.06 K/mm3 0-0.8 H EOSINOPHIL # (test code = EO#) 0.01 K/mm3 0.0-0.5 N BASOPHIL # (test code = BA#) 0.05 K/mm3 0.0-0.2 N NUCLEATED RBC # (test code = NRBC#) 0.00 K/mm3 0.0-0.1 N MANUAL DIFF REQUIRED (test code = MDIFF) YES STAIN ACCEPTABILITY (test code = STN ACCEPTABLE) TOTAL CELLS COUNTED (test code = TCC) #CELLS SEGMENTED NEUTROPHILS (test code = SEG) % 39-69 LYMPHOCYTE (test code = LYMPH) % 25-55 MONOCYTE (test code = MON) % 0-10 EOSINOPHIL (test code = EOS) % 0.0-5.0 CABOT RINGS (test code = CAB) MORPHOLOGY COMMENT (test code = MOC) PLATELET ESTIMATE (test code = PLTEST) PLATELET MORPHOLOGY (test code = PLTMORPH) CBC W/MANUAL [id number] 08:08:00* Test Item Value Reference Range Interpretation Comments WHITE BLOOD CELL (test code = WBC) 11.3 K/mm3 4.5-12.5 N RED BLOOD CELL (test code = RBC) 3.30 mill/mm3 3.7-5.2 L HEMOGLOBIN (test code = HGB) 8.9 gram/dL 11.5-15.5 L HEMATOCRIT (test code = HCT) 28.5 % 36.0-46.0 L MEAN CELL VOLUME (test code = MCV) 86.4 fL 80-98 N MEAN CELL HGB (test code = MCH) 27.0 picogram 27.0-33.0 N MEAN CELL HGB CONCETRATION (test code = MCHC) 31.2 gram/dL 33.0-36. 0 L RED CELL DISTRIBUTION WIDTH (test code = RDW) 17.5 % 11.6-16. 2 H RED CELL DISTRIBUTION WIDTH SD (test code = RDW-SD) 49.3 fL 37 .0-51.0 N PLATELET COUNT (test code = PLT) 25 K/mm3 150-450 LL Results called to [id number] by ERIC 11/09/18 0804Critical results verified and read back by Nurse? Y MEAN PLATELET VOLUME (test code = MPV) TEST NOT PERFORMED fL 6.7-11 .0 IMMATURE GRANULOCYTE % (test code = IG%) 0.7 % 0.0-5.0 N NUCLEATED RBC % (test code = NRBC%) 0.0 % 0-0 N NEUTROPHIL # (test code = NT#) 5.37 K/mm3 1.8-7.7 N IMMATURE GRANULOCYTE # (test code = IG#) 0.08 x10 3/uL 0-0.03 H LYMPHOCYTE # (test code = LY#) 4.69 K/mm3 1.0-5.0 N MONOCYTE # (test code = MO#) 1.06 K/mm3 0-0.8 H EOSINOPHIL # (test code = EO#) 0.01 K/mm3 0.0-0.5 N BASOPHIL # (test code = BA#) 0.05 K/mm3 0.0-0.2 N NUCLEATED RBC # (test code = NRBC#) 0.00 K/mm3 0.0-0.1 N MANUAL DIFF REQUIRED (test code = MDIFF) YES STAIN ACCEPTABILITY (test code = STN ACCEPTABLE) TOTAL CELLS COUNTED (test code = TCC) #CELLS SEGMENTED NEUTROPHILS (test code = SEG) % 39-69 LYMPHOCYTE (test code = LYMPH) % 25-55 MONOCYTE (test code = MON) % 0-10 EOSINOPHIL (test code = EOS) % 0.0-5.0 MORPHOLOGY COMMENT (test code = MOC) PLATELET ESTIMATE (test code = PLTEST) PLATELET MORPHOLOGY (test code = PLTMORPH) CBC W/MANUAL [id number] 08:08:00* Test Item Value Reference Range Interpretation Comments WHITE BLOOD CELL (test code = WBC) 11.3 K/mm3 4.5-12.5 N RED BLOOD CELL (test code = RBC) 3.30 mill/mm3 3.7-5.2 L HEMOGLOBIN (test code = HGB) 8.9 gram/dL 11.5-15.5 L HEMATOCRIT (test code = HCT) 28.5 % 36.0-46.0 L MEAN CELL VOLUME (test code = MCV) 86.4 fL 80-98 N MEAN CELL HGB (test code = MCH) 27.0 picogram 27.0-33.0 N MEAN CELL HGB CONCETRATION (test code = MCHC) 31.2 gram/dL 33.0-36. 0 L RED CELL DISTRIBUTION WIDTH (test code = RDW) 17.5 % 11.6-16. 2 H RED CELL DISTRIBUTION WIDTH SD (test code = RDW-SD) 49.3 fL 37 .0-51.0 N PLATELET COUNT (test code = PLT) 25 K/mm3 150-450 LL Results called to [id number] by MADELAINEKNG1 11/09/18 0804Critical results verified and read back by Nurse? Y MEAN PLATELET VOLUME (test code = MPV) TEST NOT PERFORMED fL 6.7-11 .0 IMMATURE GRANULOCYTE % (test code = IG%) 0.7 % 0.0-5.0 N NUCLEATED RBC % (test code = NRBC%) 0.0 % 0-0 N NEUTROPHIL # (test code = NT#) 5.37 K/mm3 1.8-7.7 N IMMATURE GRANULOCYTE # (test code = IG#) 0.08 x10 3/uL 0-0.03 H LYMPHOCYTE # (test code = LY#) 4.69 K/mm3 1.0-5.0 N MONOCYTE # (test code = MO#) 1.06 K/mm3 0-0.8 H EOSINOPHIL # (test code = EO#) 0.01 K/mm3 0.0-0.5 N BASOPHIL # (test code = BA#) 0.05 K/mm3 0.0-0.2 N NUCLEATED RBC # (test code = NRBC#) 0.00 K/mm3 0.0-0.1 N MANUAL DIFF REQUIRED (test code = MDIFF) YES STAIN ACCEPTABILITY (test code = STN ACCEPTABLE) TOTAL CELLS COUNTED (test code = TCC) #CELLS SEGMENTED NEUTROPHILS (test code = SEG) % 39-69 LYMPHOCYTE (test code = LYMPH) % 25-55 MONOCYTE (test code = MON) % 0-10 MORPHOLOGY COMMENT (test code = MOC) PLATELET ESTIMATE (test code = PLTEST) PLATELET MORPHOLOGY (test code = PLTMORPH) CBC W/MANUAL [id number] 08:08:00* Test Item Value Reference Range Interpretation Comments WHITE BLOOD CELL (test code = WBC) 11.3 K/mm3 4.5-12.5 N RED BLOOD CELL (test code = RBC) 3.30 mill/mm3 3.7-5.2 L HEMOGLOBIN (test code = HGB) 8.9 gram/dL 11.5-15.5 L HEMATOCRIT (test code = HCT) 28.5 % 36.0-46.0 L MEAN CELL VOLUME (test code = MCV) 86.4 fL 80-98 N MEAN CELL HGB (test code = MCH) 27.0 picogram 27.0-33.0 N MEAN CELL HGB CONCETRATION (test code = MCHC) 31.2 gram/dL 33.0-36. 0 L RED CELL DISTRIBUTION WIDTH (test code = RDW) 17.5 % 11.6-16. 2 H RED CELL DISTRIBUTION WIDTH SD (test code = RDW-SD) 49.3 fL 37 .0-51.0 N PLATELET COUNT (test code = PLT) 25 K/mm3 150-450 LL Results called to [id number] by MADELAINEKNKetan 11/09/18 0804Critical results verified and read back by Nurse? Y MEAN PLATELET VOLUME (test code = MPV) TEST NOT PERFORMED fL 6.7-11 .0 IMMATURE GRANULOCYTE % (test code = IG%) 0.7 % 0.0-5.0 N NUCLEATED RBC % (test code = NRBC%) 0.0 % 0-0 N NEUTROPHIL # (test code = NT#) 5.37 K/mm3 1.8-7.7 N IMMATURE GRANULOCYTE # (test code = IG#) 0.08 x10 3/uL 0-0.03 H LYMPHOCYTE # (test code = LY#) 4.69 K/mm3 1.0-5.0 N MONOCYTE # (test code = MO#) 1.06 K/mm3 0-0.8 H EOSINOPHIL # (test code = EO#) 0.01 K/mm3 0.0-0.5 N BASOPHIL # (test code = BA#) 0.05 K/mm3 0.0-0.2 N NUCLEATED RBC # (test code = NRBC#) 0.00 K/mm3 0.0-0.1 N MANUAL DIFF REQUIRED (test code = MDIFF) YES STAIN ACCEPTABILITY (test code = STN ACCEPTABLE) TOTAL CELLS COUNTED (test code = TCC) #CELLS SEGMENTED NEUTROPHILS (test code = SEG) % 39-69 LYMPHOCYTE (test code = LYMPH) % 25-55 MONOCYTE (test code = MON) % 0-10 EOSINOPHIL (test code = EOS) % 0.0-5.0 CABOT RINGS (test code = CAB) MORPHOLOGY COMMENT (test code = MOC) PLATELET ESTIMATE (test code = PLTEST) PLATELET MORPHOLOGY (test code = PLTMORPH) CBC W/MANUAL [id number] 11:46:00* Test Item Value Reference Range Interpretation Comments WHITE BLOOD CELL (test code = WBC) 9.5 K/mm3 4.5-12.5 N RED BLOOD CELL (test code = RBC) 2.73 mill/mm3 3.7-5.2 L HEMOGLOBIN (test code = HGB) 7.2 gram/dL 11.5-15.5 L HEMATOCRIT (test code = HCT) 24.2 % 36.0-46.0 L MEAN CELL VOLUME (test code = MCV) 88.6 fL 80-98 N MEAN CELL HGB (test code = MCH) 26.4 picogram 27.0-33.0 L MEAN CELL HGB CONCETRATION (test code = MCHC) 29.8 gram/dL 33.0-36. 0 L RED CELL DISTRIBUTION WIDTH (test code = RDW) 19.4 % 11.6-16. 2 H RED CELL DISTRIBUTION WIDTH SD (test code = RDW-SD) 56.7 fL 37 .0-51.0 H PLATELET COUNT (test code = PLT) 25 K/mm3 150-450 LL Results called to [id number] by V.LAB.LDB 11/08/18 1109Critical results verified and read back by Nurse? Y MEAN PLATELET VOLUME (test code = MPV) TEST NOT PERFORMED fL 6.7-11 .0 Unable to determine due to platelet abnormality , please seethe platelet morphology. IMMATURE GRANULOCYTE % (test code = IG%) 0.6 % 0.0-5.0 N NUCLEATED RBC % (test code = NRBC%) 0.0 % 0-0 N NEUTROPHIL # (test code = NT#) 4.35 K/mm3 1.8-7.7 N IMMATURE GRANULOCYTE # (test code = IG#) 0.06 x10 3/uL 0-0.03 H LYMPHOCYTE # (test code = LY#) 4.19 K/mm3 1.0-5.0 N MONOCYTE # (test code = MO#) 0.83 K/mm3 0-0.8 H EOSINOPHIL # (test code = EO#) 0.06 K/mm3 0.0-0.5 N BASOPHIL # (test code = BA#) 0.04 K/mm3 0.0-0.2 N NUCLEATED RBC # (test code = NRBC#) 0.00 K/mm3 0.0-0.1 N MANUAL DIFF REQUIRED (test code = MDIFF) YES STAIN ACCEPTABILITY (test code = STN ACCEPTABLE) STAIN ACCEPTABLE TOTAL CELLS COUNTED (test code = TCC) 115 #CELLS SEGMENTED NEUTROPHILS (test code = SEG) 67.8 % 39-69 N BAND NEUTROPHIL (test code = BAND) 0 % 0-10 N LYMPHOCYTE (test code = LYMPH) 26.1 % 25-55 N REACTIVE LYMPH (test code = RELYMPH) 0 % MONOCYTE (test code = MON) 5.2 % 0-10 N EOSINOPHIL (test code = EOS) 0 % 0.0-5.0 N BASOPHIL (test code = BASO) 0.9 % 0-1.0 N METAMYELOCYTE (test code = META) 0 % 0-0 N MYELOCYTE (test code = MYELO) 0 % 0.0-0.0 N PROMYELOCYTE (test code = PROM) 0 % 0-0 N HYPOCHROMIA (test code = HYPO) 1+ ANISOCYTOSIS (test code = ANISO) 2+ PLATELET ESTIMATE (test code = PLTEST) DECREASED PLATELET MORPHOLOGY (test code = PLTMORPH) NORMAL IMMATURE FORMS (test code = IMMAT) 0 % B.KH1 11/08/18 0710CBC W/MANUAL [id number] 11:11:00* Test Item Value Reference Range Interpretation Comments WHITE BLOOD CELL (test code = WBC) 9.5 K/mm3 4.5-12.5 N RED BLOOD CELL (test code = RBC) 2.73 mill/mm3 3.7-5.2 L HEMOGLOBIN (test code = HGB) 7.2 gram/dL 11.5-15.5 L HEMATOCRIT (test code = HCT) 24.2 % 36.0-46.0 L MEAN CELL VOLUME (test code = MCV) 88.6 fL 80-98 N MEAN CELL HGB (test code = MCH) 26.4 picogram 27.0-33.0 L MEAN CELL HGB CONCETRATION (test code = MCHC) 29.8 gram/dL 33.0-36. 0 L RED CELL DISTRIBUTION WIDTH (test code = RDW) 19.4 % 11.6-16. 2 H RED CELL DISTRIBUTION WIDTH SD (test code = RDW-SD) 56.7 fL 37 .0-51.0 H PLATELET COUNT (test code = PLT) 25 K/mm3 150-450 LL Results called to [id number] by V.LAB.LDB 11/08/18 1109Critical results verified and read back by Nurse? Y MEAN PLATELET VOLUME (test code = MPV) TEST NOT PERFORMED fL 6.7-11 .0 Unable to determine due to platelet abnormality , please seethe platelet morphology. IMMATURE GRANULOCYTE % (test code = IG%) 0.6 % 0.0-5.0 N NUCLEATED RBC % (test code = NRBC%) 0.0 % 0-0 N NEUTROPHIL # (test code = NT#) 4.35 K/mm3 1.8-7.7 N IMMATURE GRANULOCYTE # (test code = IG#) 0.06 x10 3/uL 0-0.03 H LYMPHOCYTE # (test code = LY#) 4.19 K/mm3 1.0-5.0 N MONOCYTE # (test code = MO#) 0.83 K/mm3 0-0.8 H EOSINOPHIL # (test code = EO#) 0.06 K/mm3 0.0-0.5 N BASOPHIL # (test code = BA#) 0.04 K/mm3 0.0-0.2 N NUCLEATED RBC # (test code = NRBC#) 0.00 K/mm3 0.0-0.1 N MANUAL DIFF REQUIRED (test code = MDIFF) YES STAIN ACCEPTABILITY (test code = STN ACCEPTABLE) TOTAL CELLS COUNTED (test code = TCC) #CELLS SEGMENTED NEUTROPHILS (test code = SEG) % 39-69 LYMPHOCYTE (test code = LYMPH) % 25-55 MONOCYTE (test code = MON) % 0-10 EOSINOPHIL (test code = EOS) % 0.0-5.0 CABOT RINGS (test code = CAB) MORPHOLOGY COMMENT (test code = MOC) PLATELET ESTIMATE (test code = PLTEST) PLATELET MORPHOLOGY (test code = PLTMORPH) B.[email or web address] 11/08/18 0710CBC W/MANUAL [id number] 11:11:00* Test Item Value Reference Range Interpretation Comments WHITE BLOOD CELL (test code = WBC) 9.5 K/mm3 4.5-12.5 N RED BLOOD CELL (test code = RBC) 2.73 mill/mm3 3.7-5.2 L HEMOGLOBIN (test code = HGB) 7.2 gram/dL 11.5-15.5 L HEMATOCRIT (test code = HCT) 24.2 % 36.0-46.0 L MEAN CELL VOLUME (test code = MCV) 88.6 fL 80-98 N MEAN CELL HGB (test code = MCH) 26.4 picogram 27.0-33.0 L MEAN CELL HGB CONCETRATION (test code = MCHC) 29.8 gram/dL 33.0-36. 0 L RED CELL DISTRIBUTION WIDTH (test code = RDW) 19.4 % 11.6-16. 2 H RED CELL DISTRIBUTION WIDTH SD (test code = RDW-SD) 56.7 fL 37 .0-51.0 H PLATELET COUNT (test code = PLT) 25 K/mm3 150-450 LL Results called to [id number] by V.LAB.LDB 11/08/18 1109Critical results verified and read back by Nurse? Y MEAN PLATELET VOLUME (test code = MPV) TEST NOT PERFORMED fL 6.7-11 .0 Unable to determine due to platelet abnormality , please seethe platelet morphology. IMMATURE GRANULOCYTE % (test code = IG%) 0.6 % 0.0-5.0 N NUCLEATED RBC % (test code = NRBC%) 0.0 % 0-0 N NEUTROPHIL # (test code = NT#) 4.35 K/mm3 1.8-7.7 N IMMATURE GRANULOCYTE # (test code = IG#) 0.06 x10 3/uL 0-0.03 H LYMPHOCYTE # (test code = LY#) 4.19 K/mm3 1.0-5.0 N MONOCYTE # (test code = MO#) 0.83 K/mm3 0-0.8 H EOSINOPHIL # (test code = EO#) 0.06 K/mm3 0.0-0.5 N BASOPHIL # (test code = BA#) 0.04 K/mm3 0.0-0.2 N NUCLEATED RBC # (test code = NRBC#) 0.00 K/mm3 0.0-0.1 N MANUAL DIFF REQUIRED (test code = MDIFF) YES STAIN ACCEPTABILITY (test code = STN ACCEPTABLE) TOTAL CELLS COUNTED (test code = TCC) #CELLS SEGMENTED NEUTROPHILS (test code = SEG) % 39-69 LYMPHOCYTE (test code = LYMPH) % 25-55 MONOCYTE (test code = MON) % 0-10 EOSINOPHIL (test code = EOS) % 0.0-5.0 CABOT RINGS (test code = CAB) MORPHOLOGY COMMENT (test code = MOC) PLATELET ESTIMATE (test code = PLTEST) PLATELET MORPHOLOGY (test code = PLTMORPH) B.KH1 11/08/18 0710CBC W/MANUAL [id number] 11:11:00* Test Item Value Reference Range Interpretation Comments WHITE BLOOD CELL (test code = WBC) 9.5 K/mm3 4.5-12.5 N RED BLOOD CELL (test code = RBC) 2.73 mill/mm3 3.7-5.2 L HEMOGLOBIN (test code = HGB) 7.2 gram/dL 11.5-15.5 L HEMATOCRIT (test code = HCT) 24.2 % 36.0-46.0 L MEAN CELL VOLUME (test code = MCV) 88.6 fL 80-98 N MEAN CELL HGB (test code = MCH) 26.4 picogram 27.0-33.0 L MEAN CELL HGB CONCETRATION (test code = MCHC) 29.8 gram/dL 33.0-36. 0 L RED CELL DISTRIBUTION WIDTH (test code = RDW) 19.4 % 11.6-16. 2 H RED CELL DISTRIBUTION WIDTH SD (test code = RDW-SD) 56.7 fL 37 .0-51.0 H PLATELET COUNT (test code = PLT) 25 K/mm3 150-450 LL Results called to [id number] by MIGUEL ANGELB 11/08/18 1109Critical results verified and read back by Nurse? Y MEAN PLATELET VOLUME (test code = MPV) TEST NOT PERFORMED fL 6.7-11 .0 Unable to determine due to platelet abnormality , please seethe platelet morphology. IMMATURE GRANULOCYTE % (test code = IG%) 0.6 % 0.0-5.0 N NUCLEATED RBC % (test code = NRBC%) 0.0 % 0-0 N NEUTROPHIL # (test code = NT#) 4.35 K/mm3 1.8-7.7 N IMMATURE GRANULOCYTE # (test code = IG#) 0.06 x10 3/uL 0-0.03 H LYMPHOCYTE # (test code = LY#) 4.19 K/mm3 1.0-5.0 N MONOCYTE # (test code = MO#) 0.83 K/mm3 0-0.8 H EOSINOPHIL # (test code = EO#) 0.06 K/mm3 0.0-0.5 N BASOPHIL # (test code = BA#) 0.04 K/mm3 0.0-0.2 N NUCLEATED RBC # (test code = NRBC#) 0.00 K/mm3 0.0-0.1 N MANUAL DIFF REQUIRED (test code = MDIFF) YES STAIN ACCEPTABILITY (test code = STN ACCEPTABLE) TOTAL CELLS COUNTED (test code = TCC) #CELLS SEGMENTED NEUTROPHILS (test code = SEG) % 39-69 LYMPHOCYTE (test code = LYMPH) % 25-55 MONOCYTE (test code = MON) % 0-10 EOSINOPHIL (test code = EOS) % 0.0-5.0 MORPHOLOGY COMMENT (test code = MOC) PLATELET ESTIMATE (test code = PLTEST) PLATELET MORPHOLOGY (test code = PLTMORPH) [email or web address] 11/08/18 0710CB W/MANUAL [id number] 11:11:00* Test Item Value Reference Range Interpretation Comments WHITE BLOOD CELL (test code = WBC) 9.5 K/mm3 4.5-12.5 N RED BLOOD CELL (test code = RBC) 2.73 mill/mm3 3.7-5.2 L HEMOGLOBIN (test code = HGB) 7.2 gram/dL 11.5-15.5 L HEMATOCRIT (test code = HCT) 24.2 % 36.0-46.0 L MEAN CELL VOLUME (test code = MCV) 88.6 fL 80-98 N MEAN CELL HGB (test code = MCH) 26.4 picogram 27.0-33.0 L MEAN CELL HGB CONCETRATION (test code = MCHC) 29.8 gram/dL 33.0-36. 0 L RED CELL DISTRIBUTION WIDTH (test code = RDW) 19.4 % 11.6-16. 2 H RED CELL DISTRIBUTION WIDTH SD (test code = RDW-SD) 56.7 fL 37 .0-51.0 H PLATELET COUNT (test code = PLT) 25 K/mm3 150-450 LL Results called to [id number] by GISELLE 11/08/18 1109Critical results verified and read back by Nurse? Y MEAN PLATELET VOLUME (test code = MPV) TEST NOT PERFORMED fL 6.7-11 .0 Unable to determine due to platelet abnormality , please seethe platelet morphology. IMMATURE GRANULOCYTE % (test code = IG%) 0.6 % 0.0-5.0 N NUCLEATED RBC % (test code = NRBC%) 0.0 % 0-0 N NEUTROPHIL # (test code = NT#) 4.35 K/mm3 1.8-7.7 N IMMATURE GRANULOCYTE # (test code = IG#) 0.06 x10 3/uL 0-0.03 H LYMPHOCYTE # (test code = LY#) 4.19 K/mm3 1.0-5.0 N MONOCYTE # (test code = MO#) 0.83 K/mm3 0-0.8 H EOSINOPHIL # (test code = EO#) 0.06 K/mm3 0.0-0.5 N BASOPHIL # (test code = BA#) 0.04 K/mm3 0.0-0.2 N NUCLEATED RBC # (test code = NRBC#) 0.00 K/mm3 0.0-0.1 N MANUAL DIFF REQUIRED (test code = MDIFF) YES STAIN ACCEPTABILITY (test code = STN ACCEPTABLE) TOTAL CELLS COUNTED (test code = TCC) #CELLS SEGMENTED NEUTROPHILS (test code = SEG) % 39-69 LYMPHOCYTE (test code = LYMPH) % 25-55 MONOCYTE (test code = MON) % 0-10 MORPHOLOGY COMMENT (test code = MOC) PLATELET ESTIMATE (test code = PLTEST) PLATELET MORPHOLOGY (test code = PLTMORPH) B.KH1 11/08/18 0710CBC W/MANUAL [id number] 11:11:00* Test Item Value Reference Range Interpretation Comments WHITE BLOOD CELL (test code = WBC) 9.5 K/mm3 4.5-12.5 N RED BLOOD CELL (test code = RBC) 2.73 mill/mm3 3.7-5.2 L HEMOGLOBIN (test code = HGB) 7.2 gram/dL 11.5-15.5 L HEMATOCRIT (test code = HCT) 24.2 % 36.0-46.0 L MEAN CELL VOLUME (test code = MCV) 88.6 fL 80-98 N MEAN CELL HGB (test code = MCH) 26.4 picogram 27.0-33.0 L MEAN CELL HGB CONCETRATION (test code = MCHC) 29.8 gram/dL 33.0-36. 0 L RED CELL DISTRIBUTION WIDTH (test code = RDW) 19.4 % 11.6-16. 2 H RED CELL DISTRIBUTION WIDTH SD (test code = RDW-SD) 56.7 fL 37 .0-51.0 H PLATELET COUNT (test code = PLT) 25 K/mm3 150-450 LL Results called to [id number] by GISELLE 11/08/18 1109Critical results verified and read back by Nurse? Y MEAN PLATELET VOLUME (test code = MPV) TEST NOT PERFORMED fL 6.7-11 .0 Unable to determine due to platelet abnormality , please seethe platelet morphology. IMMATURE GRANULOCYTE % (test code = IG%) 0.6 % 0.0-5.0 N NUCLEATED RBC % (test code = NRBC%) 0.0 % 0-0 N NEUTROPHIL # (test code = NT#) 4.35 K/mm3 1.8-7.7 N IMMATURE GRANULOCYTE # (test code = IG#) 0.06 x10 3/uL 0-0.03 H LYMPHOCYTE # (test code = LY#) 4.19 K/mm3 1.0-5.0 N MONOCYTE # (test code = MO#) 0.83 K/mm3 0-0.8 H EOSINOPHIL # (test code = EO#) 0.06 K/mm3 0.0-0.5 N BASOPHIL # (test code = BA#) 0.04 K/mm3 0.0-0.2 N NUCLEATED RBC # (test code = NRBC#) 0.00 K/mm3 0.0-0.1 N MANUAL DIFF REQUIRED (test code = MDIFF) YES STAIN ACCEPTABILITY (test code = STN ACCEPTABLE) TOTAL CELLS COUNTED (test code = TCC) #CELLS SEGMENTED NEUTROPHILS (test code = SEG) % 39-69 LYMPHOCYTE (test code = LYMPH) % 25-55 MONOCYTE (test code = MON) % 0-10 EOSINOPHIL (test code = EOS) % 0.0-5.0 CABOT RINGS (test code = CAB) MORPHOLOGY COMMENT (test code = MOC) PLATELET ESTIMATE (test code = PLTEST) PLATELET MORPHOLOGY (test code = PLTMORPH) HemalathaKH1 11/08/18 0710- US ABDOMEN [id number] 17:08:00 Name: SIOBHAN BARBOSA [facility] : 1965 Age/S: 53 / F [address] [facility] Unit #: [id number] Loc: [place] [address] Phys: Earlene Moraes Acct: [id number] Dis Date: Status: ADM IN PHONE #: [phone] Exam Date: 11/07/2018 1705 FAX #: [phone] Reason: abd distention; CHECK ASCITES EXAMS: CPT CODE: [id number] US ABDOMEN LTD 19126 REASON FOR EXAM: abd distention; CHECK ASCITES EXAM ORDER DATE: 11/07/2018 3:07 PM Attending Michelet: NISHANT Guerra PROCEDURE: - US ABDOMEN LTD FINDINGS: Limited focal ultrasound performed for assessment of ascites IMPRESSION: Septated small complex ascites with the largest pockets in the right upper and lower quadrants at 1708 Reported and signed by: Jewel Reyez M.D. CC: Shirin Knott; Earlene Moraes Technologist: Hermann Perez Trnnhb Date/Time: 11/07/2018 (4061) Ramya KramerVTL PAGE 1 Signed Report BASIC METABOLIC [id number] 07:42:00* Test Item Value Reference Range Interpretation Comments SODIUM (test code = NA) 141 mmol/L 136-145 N POTASSIUM (test code = K) 3.4 mmol/L 3.5-5.1 L CHLORIDE (test code = CL) 110.0 mmol/L 98-107 H CARBON DIOXIDE (test code = CO2) 20.0 mmol/L 21-32 L ANION GAP (test code = GAP) 14.4 10-20 N GLUCOSE (test code = GLU) 111 mg/dL 74-106 H BLOOD UREA NITROGEN (test code = BUN) 53 mg/dL 7-18 H GLOMERULAR FILTRATION RATE (test code = GFR) 19 mL/min >=60 Estimated GFR by using Modified MDRD formula.Chronic kidney disease is defined as either kidney damageor GFR <60 mL/min/1.73 m2 for >3 months. CREATININE (test code = CREAT) 2.60 mg/dL 0.55-1.02 H Note change in reference range due to change in reagent. BUN/CREATININE RATIO (test code = BUN/CREA) 20.4 10-20 H CALCIUM (test code = CA) 8.5 mg/dL 8.5-10.1 N BASIC METABOLIC [id number] 07:19:00* Test Item Value Reference Range Interpretation Comments SODIUM (test code = NA) 141 mmol/L 136-145 N POTASSIUM (test code = K) 3.4 mmol/L 3.5-5.1 L CHLORIDE (test code = CL) 110.0 mmol/L 98-107 H CARBON DIOXIDE (test code = CO2) mmol/L 21-32 ANION GAP (test code = GAP) 10-20 GLUCOSE (test code = GLU) mg/dL 74-106 BLOOD UREA NITROGEN (test code = BUN) mg/dL 7-18 GLOMERULAR FILTRATION RATE (test code = GFR) mL/min >=60 CREATININE (test code = CREAT) mg/dL 0.55-1.02 BUN/CREATININE RATIO (test code = BUN/CREA) 10-20 CALCIUM (test code = CA) mg/dL 8.5-10.1 BASIC METABOLIC [id number] 20:19:00* Test Item Value Reference Range Interpretation Comments SODIUM (test code = NA) 140 mmol/L 136-145 N POTASSIUM (test code = K) 3.3 mmol/L 3.5-5.1 L CHLORIDE (test code = CL) 110.0 mmol/L 98-107 H CARBON DIOXIDE (test code = CO2) 20.0 mmol/L 21-32 L ANION GAP (test code = GAP) 13.3 10-20 N GLUCOSE (test code = GLU) 136 mg/dL 74-106 H BLOOD UREA NITROGEN (test code = BUN) 49 mg/dL 7-18 H GLOMERULAR FILTRATION RATE (test code = GFR) 18 mL/min >=60 Estimated GFR by using Modified MDRD formula.Chronic kidney disease is defined as either kidney damageor GFR <60 mL/min/1.73 m2 for >3 months. CREATININE (test code = CREAT) 2.80 mg/dL 0.55-1.02 H Note change in reference range due to change in reagent. BUN/CREATININE RATIO (test code = BUN/CREA) 17.5 10-20 N CALCIUM (test code = CA) 8.4 mg/dL 8.5-10.1 L 11/06/18 0805NOTIFIED- SP PARACENTESIS W [id number] 20:07:00 Name: SIOBHAN BARBOSA [facility] SP : 1965 Age/S: 53 / F [address] [facility]: [id number] Loc: [place], [place] [address] Phys: John Knott MD Acct: [id number] Di s Date: Status: ADM IN PHONE #: [phone] Exam Date: 10/27/20181919 FAX #: Reason: EXAMS: CPT CODE: [id number] SP PARACENTESIS W IMAGE 98905 Fluoro Time: 0 DAP (Gy m2 ): [...] administered and using sonographic guidance an 8-[facility] pigtail catheter was inserted into the peritoneal cavity. 1 L of ascites fluid were drained and samples were sent to the lab. The drainag e catheter was then removed. No complications. IMPRESSION: Successful ultrasound-guided paracentesis. Electro nically Signed by Michelet Alvarez on 11/06/2018 at 2006 Reported and signed by: Jameel linder M.D. CC: Shirin Knott Technologist: Todd Andrews Trnnhb Date/Time: 11/06/2018 (2006) MengGRW Orig Print D/T: S: 11/06/2018 (2009) PAGE 1 Signed Report BASIC METABOLIC [id number] 05:22:00* Test Item Value Reference Range Interpretation Comments SODIUM (test code = NA) 140 mmol/L 136-145 N POTASSIUM (test code = K) 3.7 mmol/L 3.5-5.1 N CHLORIDE (test code = CL) 110.0 mmol/L 98-107 H CARBON DIOXIDE (test code = CO2) 20.0 mmol/L 21-32 L ANION GAP (test code = GAP) 13.7 10-20 N GLUCOSE (test code = GLU) 72 mg/dL 74-106 L BLOOD UREA NITROGEN (test code = BUN) 43 mg/dL 7-18 H GLOMERULAR FILTRATION RATE (test code = GFR) 18 mL/min >=60 Estimated GFR by using Modified MDRD formula.Chronic kidney disease is defined as either kidney damageor GFR <60 mL/min/1.73 m2 for >3 months. CREATININE (test code = CREAT) 2.80 mg/dL 0.55-1.02 H Note change in reference range due to change in reagent. BUN/CREATININE RATIO (test code = BUN/CREA) 15.4 10-20 N CALCIUM (test code = CA) 8.2 mg/dL 8.5-10.1 L BASIC METABOLIC [id number] 05:19:00* Test Item Value Reference Range Interpretation Comments SODIUM (test code = NA) 140 mmol/L 136-145 N POTASSIUM (test code = K) 3.7 mmol/L 3.5-5.1 N CHLORIDE (test code = CL) 110.0 mmol/L 98-107 H CARBON DIOXIDE (test code = CO2) mmol/L 21-32 ANION GAP (test code = GAP) 10-20 GLUCOSE (test code = GLU) mg/dL 74-106 BLOOD UREA NITROGEN (test code = BUN) mg/dL 7-18 GLOMERULAR FILTRATION RATE (test code = GFR) mL/min >=60 CREATININE (test code = CREAT) mg/dL 0.55-1.02 BUN/CREATININE RATIO (test code = BUN/CREA) 10-20 CALCIUM (test code = CA) 8.2 mg/dL 8.5-10.1 L [id number] 05:18:00* Test Item Value Reference Range Interpretation Comments PHOSPHORUS (test code = PHOS) 4.2 mg/dL 2.5-4.9 N [id number] 05:18:00* Test Item Value Reference Range Interpretation Comments MAGNESIUM (test code = MAG) 1.8 mg/dL 1.8-2.4 N BASIC METABOLIC [id number] 06:35:00* Test Item Value Reference Range Interpretation Comments SODIUM (test code = NA) 140 mmol/L 136-145 N POTASSIUM (test code = K) 3.8 mmol/L 3.5-5.1 N CHLORIDE (test code = CL) 109.0 mmol/L 98-107 H CARBON DIOXIDE (test code = CO2) 22.0 mmol/L 21-32 N ANION GAP (test code = GAP) 12.8 10-20 N GLUCOSE (test code = GLU) 114 mg/dL 74-106 H BLOOD UREA NITROGEN (test code = BUN) 43 mg/dL 7-18 H GLOMERULAR FILTRATION RATE (test code = GFR) 17 mL/min >=60 Estimated GFR by using Modified MDRD formula.Chronic kidney disease is defined as either kidney damageor GFR <60 mL/min/1.73 m2 for >3 months. CREATININE (test code = CREAT) 2.90 mg/dL 0.55-1.02 H Note change in reference range due to change in reagent. BUN/CREATININE RATIO (test code = BUN/CREA) 14.8 10-20 N CALCIUM (test code = CA) 8.4 mg/dL 8.5-10.1 L [id number] 06:35:00* Test Item Value Reference Range Interpretation Comments PHOSPHORUS (test code = PHOS) 3.8 mg/dL 2.5-4.9 N [id number] 06:35:00* Test Item Value Reference Range Interpretation Comments MAGNESIUM (test code = MAG) 1.9 mg/dL 1.8-2.4 N B-TYPE NATRIURETIC [id number] 16:41:00* Test Item Value Reference Range Interpretation Comments B-TYPE NATRIURETIC PEPTIDE (test code = BNP) 267.77 pgram/mL 0-100 H BASIC METABOLIC [id number] 06:44:00* Test Item Value Reference Range Interpretation Comments SODIUM (test code = NA) 140 mmol/L 136-145 N POTASSIUM (test code = K) 3.0 mmol/L 3.5-5.1 L CHLORIDE (test code = CL) 107.2 mmol/L 98-107 H CARBON DIOXIDE (test code = CO2) 22.0 mmol/L 21-32 N ANION GAP (test code = GAP) 13.8 10-20 N GLUCOSE (test code = GLU) 121 mg/dL 74-106 H BLOOD UREA NITROGEN (test code = BUN) 39 mg/dL 7-18 H GLOMERULAR FILTRATION RATE (test code = GFR) 18 mL/min >=60 Estimated GFR by using Modified MDRD formula.Chronic kidney disease is defined as either kidney damageor GFR <60 mL/min/1.73 m2 for >3 months. CREATININE (test code = CREAT) 2.80 mg/dL 0.55-1.02 H Note change in reference range due to change in reagent. BUN/CREATININE RATIO (test code = BUN/CREA) 13.9 10-20 N CALCIUM (test code = CA) 8.3 mg/dL 8.5-10.1 L [id number] 06:44:00* Test Item Value Reference Range Interpretation Comments PHOSPHORUS (test code = PHOS) 4.2 mg/dL 2.5-4.9 N [id number] 06:44:00* Test Item Value Reference Range Interpretation Comments MAGNESIUM (test code = MAG) 1.8 mg/dL 1.8-2.4 N FLUID CREATININE [id number] 19:33:00* Test Item Value Reference Range Interpretation Comments FLUID CREATININE (test code = CREATF) 3.49 SOURCE (test code = SOURCE) DOMINICK DRAIN SPECIMEN COMMENTS: DOMINICK DRAIN LEFT [id number] 16:09:00* Test Item Value Reference Range Interpretation Comments AMMONIA (test code = AMM) 18 umol/L 11-32 N - XR SWLW FUNC W/C [id number] 14:13:00 FAX: Kim Wayne MD [phone] [place]: St: ADM FAX: Shirin Luong MD Name: SIOBHAN BARBOSA [facility] : 1965 Age/S: 53/F [address] [facility] Unit #: [id number] Loc: V.[address] [place] [address] Phys: Kim Dill MD Acct: [id number] Dis Date: Status: ADM IN PHONE #: [phone] Exam Date: 11/02/2018 1151 FAX #: [phone] Reason: ASSESS SWALLOW EXAMS: CPT CODE: [id number] XR SWLW FUNC W/C V 91677 HISTORY: Aspiration. This study was performed in oncert with the speech pathologist. Varying grades of [...] Krystian Johnson M.D. CC: Kim Dill MD; Shirin Knott Technologist: Stephany Menjivar RT(R) Trnscrd Date/Time/By: 11/02/2018 (8144) : By: Ramya .TH4 Orig Print D/T: S: 11/02/2018 (7311) PAGE 1 Signed Report B-TYPE NATRIURETIC [id number] 06:36:00* Test Item Value Reference Range Interpretation Comments B-TYPE NATRIURETIC PEPTIDE (test code = BNP) 376.94 pgram/mL 0-100 H BASIC METABOLIC [id number] 06:35:00* Test Item Value Reference Range Interpretation Comments SODIUM (test code = NA) 144 mmol/L 136-145 N POTASSIUM (test code = K) 2.9 mmol/L 3.5-5.1 L Re sults called to [id number] by MONICA 11/02/18 0635Critical results verified and read back by Nurse? Y CHLORIDE (test code = CL) 107.0 mmol/L 98-107 N CARBON DIOXIDE (test code = CO2) 22.0 mmol/L 21-32 N ANION GAP (test code = GAP) 17.9 10-20 N GLUCOSE (test code = GLU) 125 mg/dL 74-106 H BLOOD UREA NITROGEN (test code = BUN) 36 mg/dL 7-18 H GLOMERULAR FILTRATION RATE (test code = GFR) 17 mL/min >=60 Estimated GFR by using Modified MDRD formula.Chronic kidney disease is defined as either kidney damageor GFR <60 mL/min/1.73 m2 for >3 months. CREATININE (test code = CREAT) 2.90 mg/dL 0.55-1.02 H Note change in reference range due to change in reagent. BUN/CREATININE RATIO (test code = BUN/CREA) 12.4 10-20 N CALCIUM (test code = CA) 8.5 mg/dL 8.5-10.1 N BASIC METABOLIC [id number] 06:14:00* Test Item Value Reference Range Interpretation Comments SODIUM (test code = NA) mmol/L 136-145 POTASSIUM (test code = K) mmol/L 3.5-5.1 CHLORIDE (test code = CL) mmol/L 98-107 CARBON DIOXIDE (test code = CO2) 22.0 mmol/L 21-32 N ANION GAP (test code = GAP) 10-20 GLUCOSE (test code = GLU) 125 mg/dL 74-106 H BLOOD UREA NITROGEN (test code = BUN) 36 mg/dL 7-18 H GLOMERULAR FILTRATION RATE (test code = GFR) 17 mL/min >=60 Estimated GFR by using Modified MDRD formula.Chronic kidney disease is defined as either kidney damageor GFR <60 mL/min/1.73 m2 for >3 months. CREATININE (test code = CREAT) 2.90 mg/dL 0.55-1.02 H Note change in reference range due to change in reagent. BUN/CREATININE RATIO (test code = BUN/CREA) 12.4 10-20 N CALCIUM (test code = CA) 8.5 mg/dL 8.5-10.1 N - XR CHEST 1 [id number] 06:18:00 FAX: Kim Wayne MD [phone] [place]: B St: ADM FAX: Shirin Luong MD Name: SIOBHAN BARBOSA [facility] : 1965 Age/S: 53/F [address] [facility] Unit #: [id number] Loc: V.S[address] [place] [address] Phys: Kim Dill MD Acct: [id number] Dis Date: Status: ADM IN PHONE #: [phone] Exam Date: 11/01/2018516 FAX #: [phone] Reason: Pulmonary Edema EXAMS: CPT CODE: [id number] XR CHEST 1 V 38392 Exam: Chest portable erect Location: F6 History: Pulmonary Edema Comparison: 10/31/2018 Findings: No change has occurred in the aeration of the lungs, the bilateral pulmonary opacities or effusions. The heart size is unchanged. The mediastinal silhouette is unremarkable. The bony thorax is intact. Impression: Stable chest/no change. Electronica lly Signed by Michelet Villa on 11/01/2018 at 0618 Reported and signed by: Martell Villa M.D. CC: Kim Dill MD; Shirin Knott Technologist: HARLEY Antonio RT(R) Trnscrd Date/Time/By: 11/01/2018 (617) : By: [email or web address] Orig P rint D/T: S: 11/01/2018 (06) PAGE 1 Signed Report COMPREHENSIVE METABOLIC PANEL 2018-11-01 05:28:00* Test Item Value Reference Range Interpretation Comments SODIUM (test code = NA) 143 mmol/L 136-145 N POTASSIUM (test code = K) 3.5 mmol/L 3.5-5.1 N CHLORIDE (test code = CL) 109.0 mmol/L 98-107 H CARBON DIOXIDE (test code = CO2) 25.0 mmol/L 21-32 N ANION GAP (test code = GAP) 12.5 10-20 N GLUCOSE (test code = GLU) 71 mg/dL 74-106 L BLOOD UREA NITROGEN (test code = BUN) 30 mg/dL 7-18 H GLOMERULAR FILTRATION RATE (test code = GFR) 18 mL/min >=60 Estimated GFR by using Modified MDRD formula.Chronic kidney disease is defined as either kidney damageor GFR <60 mL/min/1.73 m2 for >3 months. CREATININE (test code = CREAT) 2.70 mg/dL 0.55-1.02 H Note change in reference range due to change in reagent. BUN/CREATININE RATIO (test code = BUN/CREA) 11.1 10-20 N TOTAL PROTEIN (test code = PROT) 5.1 gram/dL 6.4-8.2 L ALBUMIN (test code = ALB) 1.9 g/dL 3.4-5.0 L GLOBULIN (test code = GLOB) 3.2 gram/dL 2.7-4.2 N ALBUMIN/GLOBULIN RATIO (test code = A/G) 0.6 0.75-1.50 L CALCIUM (test code = CA) 8.9 mg/dL 8.5-10.1 N BILIRUBIN TOTAL (test code = BILT) 2.30 mg/dL 0.0-1.0 H SGOT/AST (test code = AST) 15 IUnit/L 15-37 N SGPT/ALT (test code = ALT) 17 IUnit/L 12-78 N ALKALINE PHOSPHATASE TOTAL (test code = ALKP) 206 IUnit/L 45-117 H Note change in reference range due to change in reagent. CBC W/AUTO [id number] 05:09:00* Test Item Value Reference Range Interpretation Comments WHITE BLOOD CELL (test code = WBC) 9.0 K/mm3 4.5-12.5 N RED BLOOD CELL (test code = RBC) 3.27 mill/mm3 3.7-5.2 L HEMOGLOBIN (test code = HGB) 8.5 gram/dL 11.5-15.5 L HEMATOCRIT (test code = HCT) 28.1 % 36.0-46.0 L MEAN CELL VOLUME (test code = MCV) 85.9 fL 80-98 N MEAN CELL HGB (test code = MCH) 26.0 picogram 27.0-33.0 L MEAN CELL HGB CONCETRATION (test code = MCHC) 30.2 gram/dL 33.0-36. 0 L RED CELL DISTRIBUTION WIDTH (test code = RDW) 17.0 % 11.6-16. 2 H RED CELL DISTRIBUTION WIDTH SD (test code = RDW-SD) 52.9 fL 37 .0-51.0 H PLATELET COUNT (test code = PLT) 30 K/mm3 150-450 LL Results called to [id number] by V.LAB.ISRA 11/01/18 0452Critical results verified and read back by Nurse? Y MEAN PLATELET VOLUME (test code = MPV) TEST NOT PERFORMED fL 6.7-11 .0 NEUTROPHIL % (test code = NT%) 79.8 % 39.0-69.0 H IMMATURE GRANULOCYTE % (test code = IG%) 0.8 % 0.0-5.0 N LYMPHOCYTE % (test code = LY%) 13.5 % 25.0-55.0 L MONOCYTE % (test code = MO%) 5.6 % 0.0-10.0 N EOSINOPHIL % (test code = EO%) 0.1 % 0.0-5.0 N BASOPHIL % (test code = BA%) 0.2 % 0.0-1.0 N NUCLEATED RBC % (test code = NRBC%) 0.0 % 0-0 N NEUTROPHIL # (test code = NT#) 7.20 K/mm3 1.8-7.7 N IMMATURE GRANULOCYTE # (test code = IG#) 0.07 x10 3/uL 0-0.03 H LYMPHOCYTE # (test code = LY#) 1.22 K/mm3 1.0-5.0 N MONOCYTE # (test code = MO#) 0.51 K/mm3 0-0.8 N EOSINOPHIL # (test code = EO#) 0.01 K/mm3 0.0-0.5 N BASOPHIL # (test code = BA#) 0.02 K/mm3 0.0-0.2 N NUCLEATED RBC # (test code = NRBC#) 0.00 K/mm3 0.0-0.1 N MANUAL DIFF REQUIRED (test code = MDIFF) NO, ONLY SCAN NEEDED DIFFERENTIAL [id number] 05:09:00* Test Item Value Reference Range Interpretation Comments STAIN ACCEPTABILITY (test code = STN ACCEPTABLE) STAIN ACCEPTABLE HYPOCHROMIA (test code = HYPO) 1+ POIKILOCYTOSIS (test code = POIK) 1+ ANISOCYTOSIS (test code = ANISO) 1+ MICROCYTOSIS (test code = MICR) 1+ PLATELET ESTIMATE (test code = PLTEST) DECREASED PLATELET MORPHOLOGY (test code = PLTMORPH) NORMAL COMPREHENSIVE METABOLIC [id number] 04:59:00* Test Item Value Reference Range Interpretation Comments SODIUM (test code = NA) 143 mmol/L 136-145 N POTASSIUM (test code = K) 3.5 mmol/L 3.5-5.1 N CHLORIDE (test code = CL) 109.0 mmol/L 98-107 H CARBON DIOXIDE (test code = CO2) mmol/L 21-32 ANION GAP (test code = GAP) 10-20 GLUCOSE (test code = GLU) mg/dL 74-106 BLOOD UREA NITROGEN (test code = BUN) mg/dL 7-18 GLOMERULAR FILTRATION RATE (test code = GFR) mL/min >=60 CREATININE (test code = CREAT) mg/dL 0.55-1.02 BUN/CREATININE RATIO (test code = BUN/CREA) 10-20 TOTAL PROTEIN (test code = PROT) gram/dL 6.4-8.2 ALBUMIN (test code = ALB) g/dL 3.4-5.0 GLOBULIN (test code = GLOB) gram/dL 2.7-4.2 ALBUMIN/GLOBULIN RATIO (test code = A/G) 0.75-1.50 CALCIUM (test code = CA) mg/dL 8.5-10.1 BILIRUBIN TOTAL (test code = BILT) mg/dL 0.0-1.0 SGOT/AST (test code = AST) IUnit/L 15-37 SGPT/ALT (test code = ALT) IUnit/L 12-78 ALKALINE PHOSPHATASE TOTAL (test code = ALKP) IUnit/L 45-117 CBC W/AUTO [id number] 04:53:00* Test Item Value Reference Range Interpretation Comments WHITE BLOOD CELL (test code = WBC) 9.0 K/mm3 4.5-12.5 N RED BLOOD CELL (test code = RBC) 3.27 mill/mm3 3.7-5.2 L HEMOGLOBIN (test code = HGB) 8.5 gram/dL 11.5-15.5 L HEMATOCRIT (test code = HCT) 28.1 % 36.0-46.0 L MEAN CELL VOLUME (test code = MCV) 85.9 fL 80-98 N MEAN CELL HGB (test code = MCH) 26.0 picogram 27.0-33.0 L MEAN CELL HGB CONCETRATION (test code = MCHC) 30.2 gram/dL 33.0-36. 0 L RED CELL DISTRIBUTION WIDTH (test code = RDW) 17.0 % 11.6-16. 2 H RED CELL DISTRIBUTION WIDTH SD (test code = RDW-SD) 52.9 fL 37 .0-51.0 H PLATELET COUNT (test code = PLT) 30 K/mm3 150-450 LL Results called to [id number] by MARIUM 11/01/18 0452Critical results verified and read back by Nurse? Y MEAN PLATELET VOLUME (test code = MPV) TEST NOT PERFORMED fL 6.7-11 .0 NEUTROPHIL % (test code = NT%) 79.8 % 39.0-69.0 H IMMATURE GRANULOCYTE % (test code = IG%) 0.8 % 0.0-5.0 N LYMPHOCYTE % (test code = LY%) 13.5 % 25.0-55.0 L MONOCYTE % (test code = MO%) 5.6 % 0.0-10.0 N EOSINOPHIL % (test code = EO%) 0.1 % 0.0-5.0 N BASOPHIL % (test code = BA%) 0.2 % 0.0-1.0 N NUCLEATED RBC % (test code = NRBC%) 0.0 % 0-0 N NEUTROPHIL # (test code = NT#) 7.20 K/mm3 1.8-7.7 N IMMATURE GRANULOCYTE # (test code = IG#) 0.07 x10 3/uL 0-0.03 H LYMPHOCYTE # (test code = LY#) 1.22 K/mm3 1.0-5.0 N MONOCYTE # (test code = MO#) 0.51 K/mm3 0-0.8 N EOSINOPHIL # (test code = EO#) 0.01 K/mm3 0.0-0.5 N BASOPHIL # (test code = BA#) 0.02 K/mm3 0.0-0.2 N NUCLEATED RBC # (test code = NRBC#) 0.00 K/mm3 0.0-0.1 N MANUAL DIFF REQUIRED (test code = MDIFF) NO, ONLY SCAN NEEDED DIFFERENTIAL [id number] 04:53:00* Test Item Value Reference Range Interpretation Comments STAIN ACCEPTABILITY (test code = STN ACCEPTABLE) CABOT RINGS (test code = CAB) MORPHOLOGY COMMENT (test code = MOC) PLATELET ESTIMATE (test code = PLTEST) PLATELET MORPHOLOGY (test code = PLTMORPH) CBC W/AUTO [id number] 04:53:00* Test Item Value Reference Range Interpretation Comments WHITE BLOOD CELL (test code = WBC) 9.0 K/mm3 4.5-12.5 N RED BLOOD CELL (test code = RBC) 3.27 mill/mm3 3.7-5.2 L HEMOGLOBIN (test code = HGB) 8.5 gram/dL 11.5-15.5 L HEMATOCRIT (test code = HCT) 28.1 % 36.0-46.0 L MEAN CELL VOLUME (test code = MCV) 85.9 fL 80-98 N MEAN CELL HGB (test code = MCH) 26.0 picogram 27.0-33.0 L MEAN CELL HGB CONCETRATION (test code = MCHC) 30.2 gram/dL 33.0-36. 0 L RED CELL DISTRIBUTION WIDTH (test code = RDW) 17.0 % 11.6-16. 2 H RED CELL DISTRIBUTION WIDTH SD (test code = RDW-SD) 52.9 fL 37 .0-51.0 H PLATELET COUNT (test code = PLT) 30 K/mm3 150-450 LL Results called to [id number] by MARIUM 11/01/18 0452Critical results verified and read back by Nurse? Y MEAN PLATELET VOLUME (test code = MPV) TEST NOT PERFORMED fL 6.7-11 .0 NEUTROPHIL % (test code = NT%) 79.8 % 39.0-69.0 H IMMATURE GRANULOCYTE % (test code = IG%) 0.8 % 0.0-5.0 N LYMPHOCYTE % (test code = LY%) 13.5 % 25.0-55.0 L MONOCYTE % (test code = MO%) 5.6 % 0.0-10.0 N EOSINOPHIL % (test code = EO%) 0.1 % 0.0-5.0 N BASOPHIL % (test code = BA%) 0.2 % 0.0-1.0 N NUCLEATED RBC % (test code = NRBC%) 0.0 % 0-0 N NEUTROPHIL # (test code = NT#) 7.20 K/mm3 1.8-7.7 N IMMATURE GRANULOCYTE # (test code = IG#) 0.07 x10 3/uL 0-0.03 H LYMPHOCYTE # (test code = LY#) 1.22 K/mm3 1.0-5.0 N MONOCYTE # (test code = MO#) 0.51 K/mm3 0-0.8 N EOSINOPHIL # (test code = EO#) 0.01 K/mm3 0.0-0.5 N BASOPHIL # (test code = BA#) 0.02 K/mm3 0.0-0.2 N NUCLEATED RBC # (test code = NRBC#) 0.00 K/mm3 0.0-0.1 N MANUAL DIFF REQUIRED (test code = MDIFF) NO, ONLY SCAN NEEDED DIFFERENTIAL [id number] 04:53:00* Test Item Value Reference Range Interpretation Comments STAIN ACCEPTABILITY (test code = STN ACCEPTABLE) CABOT RINGS (test code = CAB) MORPHOLOGY COMMENT (test code = MOC) PLATELET ESTIMATE (test code = PLTEST) PLATELET MORPHOLOGY (test code = PLTMORPH) CBC W/AUTO [id number] 04:53:00* Test Item Value Reference Range Interpretation Comments WHITE BLOOD CELL (test code = WBC) 9.0 K/mm3 4.5-12.5 N RED BLOOD CELL (test code = RBC) 3.27 mill/mm3 3.7-5.2 L HEMOGLOBIN (test code = HGB) 8.5 gram/dL 11.5-15.5 L HEMATOCRIT (test code = HCT) 28.1 % 36.0-46.0 L MEAN CELL VOLUME (test code = MCV) 85.9 fL 80-98 N MEAN CELL HGB (test code = MCH) 26.0 picogram 27.0-33.0 L MEAN CELL HGB CONCETRATION (test code = MCHC) 30.2 gram/dL 33.0-36. 0 L RED CELL DISTRIBUTION WIDTH (test code = RDW) 17.0 % 11.6-16. 2 H RED CELL DISTRIBUTION WIDTH SD (test code = RDW-SD) 52.9 fL 37 .0-51.0 H PLATELET COUNT (test code = PLT) 30 K/mm3 150-450 LL Results called to [id number] by MARIUM 11/01/18 0452Critical results verified and read back by Nurse? Y MEAN PLATELET VOLUME (test code = MPV) TEST NOT PERFORMED fL 6.7-11 .0 NEUTROPHIL % (test code = NT%) 79.8 % 39.0-69.0 H IMMATURE GRANULOCYTE % (test code = IG%) 0.8 % 0.0-5.0 N LYMPHOCYTE % (test code = LY%) 13.5 % 25.0-55.0 L MONOCYTE % (test code = MO%) 5.6 % 0.0-10.0 N EOSINOPHIL % (test code = EO%) 0.1 % 0.0-5.0 N BASOPHIL % (test code = BA%) 0.2 % 0.0-1.0 N NUCLEATED RBC % (test code = NRBC%) 0.0 % 0-0 N NEUTROPHIL # (test code = NT#) 7.20 K/mm3 1.8-7.7 N IMMATURE GRANULOCYTE # (test code = IG#) 0.07 x10 3/uL 0-0.03 H LYMPHOCYTE # (test code = LY#) 1.22 K/mm3 1.0-5.0 N MONOCYTE # (test code = MO#) 0.51 K/mm3 0-0.8 N EOSINOPHIL # (test code = EO#) 0.01 K/mm3 0.0-0.5 N BASOPHIL # (test code = BA#) 0.02 K/mm3 0.0-0.2 N NUCLEATED RBC # (test code = NRBC#) 0.00 K/mm3 0.0-0.1 N MANUAL DIFF REQUIRED (test code = MDIFF) NO, ONLY SCAN NEEDED DIFFERENTIAL [id number] 04:53:00* Test Item Value Reference Range Interpretation Comments STAIN ACCEPTABILITY (test code = STN ACCEPTABLE) MORPHOLOGY COMMENT (test code = MOC) PLATELET ESTIMATE (test code = PLTEST) PLATELET MORPHOLOGY (test code = PLTMORPH) CBC W/AUTO [id number] 04:52:00* Test Item Value Reference Range Interpretation Comments WHITE BLOOD CELL (test code = WBC) 9.0 K/mm3 4.5-12.5 N RED BLOOD CELL (test code = RBC) 3.27 mill/mm3 3.7-5.2 L HEMOGLOBIN (test code = HGB) 8.5 gram/dL 11.5-15.5 L HEMATOCRIT (test code = HCT) 28.1 % 36.0-46.0 L MEAN CELL VOLUME (test code = MCV) 85.9 fL 80-98 N MEAN CELL HGB (test code = MCH) 26.0 picogram 27.0-33.0 L MEAN CELL HGB CONCETRATION (test code = MCHC) 30.2 gram/dL 33.0-36. 0 L RED CELL DISTRIBUTION WIDTH (test code = RDW) 17.0 % 11.6-16. 2 H RED CELL DISTRIBUTION WIDTH SD (test code = RDW-SD) 52.9 fL 37 .0-51.0 H PLATELET COUNT (test code = PLT) 30 K/mm3 150-450 LL Results called to [id number] by MARIUM 11/01/18 0452Critical results verified and read back by Nurse? Y MEAN PLATELET VOLUME (test code = MPV) TEST NOT PERFORMED fL 6.7-11 .0 NEUTROPHIL % (test code = NT%) 79.8 % 39.0-69.0 H IMMATURE GRANULOCYTE % (test code = IG%) 0.8 % 0.0-5.0 N LYMPHOCYTE % (test code = LY%) 13.5 % 25.0-55.0 L MONOCYTE % (test code = MO%) 5.6 % 0.0-10.0 N EOSINOPHIL % (test code = EO%) 0.1 % 0.0-5.0 N BASOPHIL % (test code = BA%) 0.2 % 0.0-1.0 N NUCLEATED RBC % (test code = NRBC%) 0.0 % 0-0 N NEUTROPHIL # (test code = NT#) 7.20 K/mm3 1.8-7.7 N IMMATURE GRANULOCYTE # (test code = IG#) 0.07 x10 3/uL 0-0.03 H LYMPHOCYTE # (test code = LY#) 1.22 K/mm3 1.0-5.0 N MONOCYTE # (test code = MO#) 0.51 K/mm3 0-0.8 N EOSINOPHIL # (test code = EO#) 0.01 K/mm3 0.0-0.5 N BASOPHIL # (test code = BA#) 0.02 K/mm3 0.0-0.2 N NUCLEATED RBC # (test code = NRBC#) 0.00 K/mm3 0.0-0.1 N MANUAL DIFF REQUIRED (test code = MDIFF) NO, ONLY SCAN NEEDED DIFFERENTIAL [id number] 04:52:00* Test Item Value Reference Range Interpretation Comments STAIN ACCEPTABILITY (test code = STN ACCEPTABLE) CABOT RINGS (test code = CAB) MORPHOLOGY COMMENT (test code = MOC) PLATELET ESTIMATE (test code = PLTEST) PLATELET MORPHOLOGY (test code = PLTMORPH) CBC W/MANUAL [id number] 23:13:00* Test Item Value Reference Range Interpretation Comments WHITE BLOOD CELL (test code = WBC) 10.7 K/mm3 4.5-12.5 N RED BLOOD CELL (test code = RBC) 3.91 mill/mm3 3.7-5.2 N HEMOGLOBIN (test code = HGB) 10.1 gram/dL 11.5-15.5 L RESULTS CALLED TO [id number]/LISABY V.LAB.[facility] 10/31/182240 HEMATOCRIT (test code = HCT) 34.0 % 36.0-46.0 L RESULTS CALLED TO [id number]/LISABY V.LAB.[facility] 10/31/181 MEAN CELL VOLUME (test code = MCV) 87.0 fL 80-98 N MEAN CELL HGB (test code = MCH) 25.8 picogram 27.0-33.0 L MEAN CELL HGB CONCETRATION (test code = MCHC) 29.7 gram/dL 33.0-36. 0 L RED CELL DISTRIBUTION WIDTH (test code = RDW) 17.2 % 11.6-16. 2 H RED CELL DISTRIBUTION WIDTH SD (test code = RDW-SD) 53.7 fL 37 .0-51.0 H PLATELET COUNT (test code = PLT) 42 K/mm3 150-450 LL Results called to HARMAN/ANX2341 by V.LAB.[facility] 10/31/182238Critical results verified and read back by Nurse? Y MEAN PLATELET VOLUME (test code = MPV) 13.1 fL 6.7-11.0 H IMMATURE GRANULOCYTE % (test code = IG%) 0.7 % 0.0-5.0 N NUCLEATED RBC % (test code = NRBC%) 0.0 % 0-0 N NEUTROPHIL # (test code = NT#) 6.38 K/mm3 1.8-7.7 N IMMATURE GRANULOCYTE # (test code = IG#) 0.08 x10 3/uL 0-0.03 H LYMPHOCYTE # (test code = LY#) 3.31 K/mm3 1.0-5.0 N MONOCYTE # (test code = MO#) 0.81 K/mm3 0-0.8 H EOSINOPHIL # (test code = EO#) 0.07 K/mm3 0.0-0.5 N BASOPHIL # (test code = BA#) 0.03 K/mm3 0.0-0.2 N NUCLEATED RBC # (test code = NRBC#) 0.00 K/mm3 0.0-0.1 N MANUAL DIFF REQUIRED (test code = MDIFF) YES STAIN ACCEPTABILITY (test code = STN ACCEPTABLE) STAIN ACCEPTABLE TOTAL CELLS COUNTED (test code = TCC) 115 #CELLS SEGMENTED NEUTROPHILS (test code = SEG) 80.0 % 39-69 H BAND NEUTROPHIL (test code = BAND) 0 % 0-10 N LYMPHOCYTE (test code = LYMPH) 14.8 % 25-55 L REACTIVE LYMPH (test code = RELYMPH) 0.8 % MONOCYTE (test code = MON) 3.5 % 0-10 N EOSINOPHIL (test code = EOS) 0 % 0.0-5.0 N BASOPHIL (test code = BASO) 0 % 0-1.0 N METAMYELOCYTE (test code = META) 0.9 % 0-0 H MYELOCYTE (test code = MYELO) 0 % 0.0-0.0 N PROMYELOCYTE (test code = PROM) 0 % 0-0 N HYPOCHROMIA (test code = HYPO) 1+ POIKILOCYTOSIS (test code = POIK) 1+ ANISOCYTOSIS (test code = ANISO) 2+ MACROCYTOSIS (test code = MACR) 2+ PLATELET ESTIMATE (test code = PLTEST) DECREASED PLATELET MORPHOLOGY (test code = PLTMORPH) NORMAL IMMATURE FORMS (test code = IMMAT) 0 % CBC W/MANUAL [id number] 22:45:00* Test Item Value Reference Range Interpretation Comments WHITE BLOOD CELL (test code = WBC) 10.7 K/mm3 4.5-12.5 N RED BLOOD CELL (test code = RBC) 3.91 mill/mm3 3.7-5.2 N HEMOGLOBIN (test code = HGB) 10.1 gram/dL 11.5-15.5 L RESULTS CALLED TO [id number]/LISABY V.LAB.[facility] 10/31/182240 HEMATOCRIT (test code = HCT) 34.0 % 36.0-46.0 L RESULTS CALLED TO WYV1521/LISABY V.LAB.KP1 10/31/18 2241 MEAN CELL VOLUME (test code = MCV) 87.0 fL 80-98 N MEAN CELL HGB (test code = MCH) 25.8 picogram 27.0-33.0 L MEAN CELL HGB CONCETRATION (test code = MCHC) 29.7 gram/dL 33.0-36. 0 L RED CELL DISTRIBUTION WIDTH (test code = RDW) 17.2 % 11.6-16. 2 H RED CELL DISTRIBUTION WIDTH SD (test code = RDW-SD) 53.7 fL 37 .0-51.0 H PLATELET COUNT (test code = PLT) 42 K/mm3 150-450 LL Results called to HARMAN/QRQ9846 by V.LAB.KP1 10/31/18 2239Critical results verified and read back by Nurse? Y MEAN PLATELET VOLUME (test code = MPV) 13.1 fL 6.7-11.0 H IMMATURE GRANULOCYTE % (test code = IG%) 0.7 % 0.0-5.0 N NUCLEATED RBC % (test code = NRBC%) 0.0 % 0-0 N NEUTROPHIL # (test code = NT#) 6.38 K/mm3 1.8-7.7 N IMMATURE GRANULOCYTE # (test code = IG#) 0.08 x10 3/uL 0-0.03 H LYMPHOCYTE # (test code = LY#) 3.31 K/mm3 1.0-5.0 N MONOCYTE # (test code = MO#) 0.81 K/mm3 0-0.8 H EOSINOPHIL # (test code = EO#) 0.07 K/mm3 0.0-0.5 N BASOPHIL # (test code = BA#) 0.03 K/mm3 0.0-0.2 N NUCLEATED RBC # (test code = NRBC#) 0.00 K/mm3 0.0-0.1 N MANUAL DIFF REQUIRED (test code = MDIFF) YES STAIN ACCEPTABILITY (test code = STN ACCEPTABLE) TOTAL CELLS COUNTED (test code = TCC) #CELLS SEGMENTED NEUTROPHILS (test code = SEG) % 39-69 LYMPHOCYTE (test code = LYMPH) % 25-55 MONOCYTE (test code = MON) % 0-10 MORPHOLOGY COMMENT (test code = MOC) PLATELET ESTIMATE (test code = PLTEST) PLATELET MORPHOLOGY (test code = PLTMORPH) CBC W/MANUAL [id number] 22:41:00* Test Item Value Reference Range Interpretation Comments WHITE BLOOD CELL (test code = WBC) 10.7 K/mm3 4.5-12.5 N RED BLOOD CELL (test code = RBC) 3.91 mill/mm3 3.7-5.2 N HEMOGLOBIN (test code = HGB) 10.1 gram/dL 11.5-15.5 L RESULTS CALLED TO [id number]/PATRICK V.LAB.[facility] 10/31/182240 HEMATOCRIT (test code = HCT) 34.0 % 36.0-46.0 L RESULTS CALLED TO [id number]/Calsys V.LAB.[facility] 10/31/182240 MEAN CELL VOLUME (test code = MCV) 87.0 fL 80-98 N MEAN CELL HGB (test code = MCH) 25.8 picogram 27.0-33.0 L MEAN CELL HGB CONCETRATION (test code = MCHC) 29.7 gram/dL 33.0-36. 0 L RED CELL DISTRIBUTION WIDTH (test code = RDW) 17.2 % 11.6-16. 2 H RED CELL DISTRIBUTION WIDTH SD (test code = RDW-SD) 53.7 fL 37 .0-51.0 H PLATELET COUNT (test code = PLT) 42 K/mm3 150-450 LL Results called to HARMAN/YXR2375 by V.LAB.[facility] 10/31/182238Critical results verified and read back by Nurse? Y MEAN PLATELET VOLUME (test code = MPV) 13.1 fL 6.7-11.0 H IMMATURE GRANULOCYTE % (test code = IG%) 0.7 % 0.0-5.0 N NUCLEATED RBC % (test code = NRBC%) 0.0 % 0-0 N NEUTROPHIL # (test code = NT#) 6.38 K/mm3 1.8-7.7 N IMMATURE GRANULOCYTE # (test code = IG#) 0.08 x10 3/uL 0-0.03 H LYMPHOCYTE # (test code = LY#) 3.31 K/mm3 1.0-5.0 N MONOCYTE # (test code = MO#) 0.81 K/mm3 0-0.8 H EOSINOPHIL # (test code = EO#) 0.07 K/mm3 0.0-0.5 N BASOPHIL # (test code = BA#) 0.03 K/mm3 0.0-0.2 N NUCLEATED RBC # (test code = NRBC#) 0.00 K/mm3 0.0-0.1 N MANUAL DIFF REQUIRED (test code = MDIFF) YES STAIN ACCEPTABILITY (test code = STN ACCEPTABLE) TOTAL CELLS COUNTED (test code = TCC) #CELLS SEGMENTED NEUTROPHILS (test code = SEG) % 39-69 LYMPHOCYTE (test code = LYMPH) % 25-55 MONOCYTE (test code = MON) % 0-10 EOSINOPHIL (test code = EOS) % 0.0-5.0 CABOT RINGS (test code = CAB) MORPHOLOGY COMMENT (test code = MOC) PLATELET ESTIMATE (test code = PLTEST) PLATELET MORPHOLOGY (test code = PLTMORPH) CBC W/MANUAL [id number] 22:41:00* Test Item Value Reference Range Interpretation Comments WHITE BLOOD CELL (test code = WBC) 10.7 K/mm3 4.5-12.5 N RED BLOOD CELL (test code = RBC) 3.91 mill/mm3 3.7-5.2 N HEMOGLOBIN (test code = HGB) 10.1 gram/dL 11.5-15.5 L RESULTS CALLED TO Saisei/Calsys V.LAB.[facility] 10/31/182240 HEMATOCRIT (test code = HCT) 34.0 % 36.0-46.0 L RESULTS CALLED TO Saisei/Calsys V.LAB.[facility] 10/31/182240 MEAN CELL VOLUME (test code = MCV) 87.0 fL 80-98 N MEAN CELL HGB (test code = MCH) 25.8 picogram 27.0-33.0 L MEAN CELL HGB CONCETRATION (test code = MCHC) 29.7 gram/dL 33.0-36. 0 L RED CELL DISTRIBUTION WIDTH (test code = RDW) 17.2 % 11.6-16. 2 H RED CELL DISTRIBUTION WIDTH SD (test code = RDW-SD) 53.7 fL 37 .0-51.0 H PLATELET COUNT (test code = PLT) 42 K/mm3 150-450 LL Results called to Pawzii/Saisei by V.LAB.[facility] 10/31/182238Critical results verified and read back by Nurse? Y MEAN PLATELET VOLUME (test code = MPV) 13.1 fL 6.7-11.0 H IMMATURE GRANULOCYTE % (test code = IG%) 0.7 % 0.0-5.0 N NUCLEATED RBC % (test code = NRBC%) 0.0 % 0-0 N NEUTROPHIL # (test code = NT#) 6.38 K/mm3 1.8-7.7 N IMMATURE GRANULOCYTE # (test code = IG#) 0.08 x10 3/uL 0-0.03 H LYMPHOCYTE # (test code = LY#) 3.31 K/mm3 1.0-5.0 N MONOCYTE # (test code = MO#) 0.81 K/mm3 0-0.8 H EOSINOPHIL # (test code = EO#) 0.07 K/mm3 0.0-0.5 N BASOPHIL # (test code = BA#) 0.03 K/mm3 0.0-0.2 N NUCLEATED RBC # (test code = NRBC#) 0.00 K/mm3 0.0-0.1 N MANUAL DIFF REQUIRED (test code = MDIFF) YES STAIN ACCEPTABILITY (test code = STN ACCEPTABLE) TOTAL CELLS COUNTED (test code = TCC) #CELLS SEGMENTED NEUTROPHILS (test code = SEG) % 39-69 LYMPHOCYTE (test code = LYMPH) % 25-55 MONOCYTE (test code = MON) % 0-10 EOSINOPHIL (test code = EOS) % 0.0-5.0 CABOT RINGS (test code = CAB) MORPHOLOGY COMMENT (test code = MOC) PLATELET ESTIMATE (test code = PLTEST) PLATELET MORPHOLOGY (test code = PLTMORPH) CBC W/MANUAL [id number] 22:41:00* Test Item Value Reference Range Interpretation Comments WHITE BLOOD CELL (test code = WBC) 10.7 K/mm3 4.5-12.5 N RED BLOOD CELL (test code = RBC) 3.91 mill/mm3 3.7-5.2 N HEMOGLOBIN (test code = HGB) 10.1 gram/dL 11.5-15.5 L RESULTS CALLED TO [id number]/LISABY V.LAB.[facility] 10/31/182240 HEMATOCRIT (test code = HCT) 34.0 % 36.0-46.0 L RESULTS CALLED TO [id number]/LISABY V.LAB.[facility] 10/31/181 MEAN CELL VOLUME (test code = MCV) 87.0 fL 80-98 N MEAN CELL HGB (test code = MCH) 25.8 picogram 27.0-33.0 L MEAN CELL HGB CONCETRATION (test code = MCHC) 29.7 gram/dL 33.0-36. 0 L RED CELL DISTRIBUTION WIDTH (test code = RDW) 17.2 % 11.6-16. 2 H RED CELL DISTRIBUTION WIDTH SD (test code = RDW-SD) 53.7 fL 37 .0-51.0 H PLATELET COUNT (test code = PLT) 42 K/mm3 150-450 LL Results called to HARMAN/VCA8077 by [facility].LAB.1 10/31/189Critical results verified and read back by Nurse? Y MEAN PLATELET VOLUME (test code = MPV) 13.1 fL 6.7-11.0 H IMMATURE GRANULOCYTE % (test code = IG%) 0.7 % 0.0-5.0 N NUCLEATED RBC % (test code = NRBC%) 0.0 % 0-0 N NEUTROPHIL # (test code = NT#) 6.38 K/mm3 1.8-7.7 N IMMATURE GRANULOCYTE # (test code = IG#) 0.08 x10 3/uL 0-0.03 H LYMPHOCYTE # (test code = LY#) 3.31 K/mm3 1.0-5.0 N MONOCYTE # (test code = MO#) 0.81 K/mm3 0-0.8 H EOSINOPHIL # (test code = EO#) 0.07 K/mm3 0.0-0.5 N BASOPHIL # (test code = BA#) 0.03 K/mm3 0.0-0.2 N NUCLEATED RBC # (test code = NRBC#) 0.00 K/mm3 0.0-0.1 N MANUAL DIFF REQUIRED (test code = MDIFF) YES STAIN ACCEPTABILITY (test code = STN ACCEPTABLE) TOTAL CELLS COUNTED (test code = TCC) #CELLS SEGMENTED NEUTROPHILS (test code = SEG) % 39-69 LYMPHOCYTE (test code = LYMPH) % 25-55 MONOCYTE (test code = MON) % 0-10 EOSINOPHIL (test code = EOS) % 0.0-5.0 MORPHOLOGY COMMENT (test code = MOC) PLATELET ESTIMATE (test code = PLTEST) PLATELET MORPHOLOGY (test code = PLTMORPH) CBC W/MANUAL [id number] 22:41:00* Test Item Value Reference Range Interpretation Comments WHITE BLOOD CELL (test code = WBC) 10.7 K/mm3 4.5-12.5 N RED BLOOD CELL (test code = RBC) 3.91 mill/mm3 3.7-5.2 N HEMOGLOBIN (test code = HGB) 10.1 gram/dL 11.5-15.5 L RESULTS CALLED TO [id number]/LISCHIQUI V.LAB.[facility] 10/31/182240 HEMATOCRIT (test code = HCT) 34.0 % 36.0-46.0 L RESULTS CALLED TO [id number]/Calsys V.LAB.[facility] 10/31/182240 MEAN CELL VOLUME (test code = MCV) 87.0 fL 80-98 N MEAN CELL HGB (test code = MCH) 25.8 picogram 27.0-33.0 L MEAN CELL HGB CONCETRATION (test code = MCHC) 29.7 gram/dL 33.0-36. 0 L RED CELL DISTRIBUTION WIDTH (test code = RDW) 17.2 % 11.6-16. 2 H RED CELL DISTRIBUTION WIDTH SD (test code = RDW-SD) 53.7 fL 37 .0-51.0 H PLATELET COUNT (test code = PLT) 42 K/mm3 150-450 LL Results called to HARMAN/JEA6281 by V.LAB.[facility] 10/31/182238Critical results verified and read back by Nurse? Y MEAN PLATELET VOLUME (test code = MPV) 13.1 fL 6.7-11.0 H IMMATURE GRANULOCYTE % (test code = IG%) 0.7 % 0.0-5.0 N NUCLEATED RBC % (test code = NRBC%) 0.0 % 0-0 N NEUTROPHIL # (test code = NT#) 6.38 K/mm3 1.8-7.7 N IMMATURE GRANULOCYTE # (test code = IG#) 0.08 x10 3/uL 0-0.03 H LYMPHOCYTE # (test code = LY#) 3.31 K/mm3 1.0-5.0 N MONOCYTE # (test code = MO#) 0.81 K/mm3 0-0.8 H EOSINOPHIL # (test code = EO#) 0.07 K/mm3 0.0-0.5 N BASOPHIL # (test code = BA#) 0.03 K/mm3 0.0-0.2 N NUCLEATED RBC # (test code = NRBC#) 0.00 K/mm3 0.0-0.1 N MANUAL DIFF REQUIRED (test code = MDIFF) YES STAIN ACCEPTABILITY (test code = STN ACCEPTABLE) TOTAL CELLS COUNTED (test code = TCC) #CELLS SEGMENTED NEUTROPHILS (test code = SEG) % 39-69 LYMPHOCYTE (test code = LYMPH) % 25-55 MONOCYTE (test code = MON) % 0-10 EOSINOPHIL (test code = EOS) % 0.0-5.0 CABOT RINGS (test code = CAB) MORPHOLOGY COMMENT (test code = MOC) PLATELET ESTIMATE (test code = PLTEST) PLATELET MORPHOLOGY (test code = PLTMORPH) - XR CHEST 1 [id number] 22:20:00 FAX: Vignesh Howell [place]: B St: ADM FAX: Shirin Luong MD Name: SIOBHAN BARBOSA [facility] : 1965 Age/S: 53/F [address] [facility] Unit #: [id number] Loc: [address] [address] Phys: Vignesh Howell Acct: [id number] Dis Date: Status: ADM IN PHONE #: [phone] Exam Date: 10/31/20182217 FAX #: [phone] Reason: PT REMOVED CENTRAL CATHETER EXAMS: CPT CODE: [id number] XR CHEST 1 V [id number] REASON FOR EXAM: PT REMOVED CENTRAL CATHETER EXAM ORDER DATE: 10/31/2018 10:00 PM Ordering Michelet: NISHANT Velez PROCEDURE: - XR CHEST 1 V COMPARISON: 10/31/2018 at 5:34 AM FINDINGS: Portable AP frontal view of the chest obtained at 10:11 PM shows diffuse airspace opacities. The heart size is minimally enlarged. Pulmonary vasculatures are minimally congested. IMPRESSION: Congestive heart failure with bone marrow edema and small bilateral pleural effusions. Previously seen right IJ dialysis catheter has been removed Electronically Signed by Michelet Reyez on at 2220 Reported and signed by: Jewel Reyez M.D. CC: Vignesh Howell; Shirin Knott chnologist: EVITA HALE; Venkatesh Blankenship RT(R Trnnhrd Date/ Time/By: 10/31/2018 (2220) : By: Ramya.VTL Orig Print D/T: S: 11/01/19 (6201) PAGE 1 Signed Report CBC W/MANUAL [id number] 09:23:00* Test Item Value Reference Range Interpretation Comments WHITE BLOOD CELL (test code = WBC) 4.6 K/mm3 4.5-12.5 N RED BLOOD CELL (test code = RBC) 3.45 mill/mm3 3.7-5.2 L HEMOGLOBIN (test code = HGB) 9.2 gram/dL 11.5-15.5 L HEMATOCRIT (test code = HCT) 29.8 % 36.0-46.0 L MEAN CELL VOLUME (test code = MCV) 86.4 fL 80-98 N MEAN CELL HGB (test code = MCH) 26.7 picogram 27.0-33.0 L MEAN CELL HGB CONCETRATION (test code = MCHC) 30.9 gram/dL 33.0-36. 0 L RED CELL DISTRIBUTION WIDTH (test code = RDW) 16.9 % 11.6-16. 2 H RED CELL DISTRIBUTION WIDTH SD (test code = RDW-SD) 51.7 fL 37 .0-51.0 H PLATELET COUNT (test code = PLT) 31 K/mm3 150-450 LL Results called to [id number] by MYAH 10/31/18 0711Critical results verified and read back by Nurse? Y MEAN PLATELET VOLUME (test code = MPV) 12.7 fL 6.7-11.0 H IMMATURE GRANULOCYTE % (test code = IG%) 0.9 % 0.0-5.0 N NUCLEATED RBC % (test code = NRBC%) 0.0 % 0-0 N NEUTROPHIL # (test code = NT#) 3.24 K/mm3 1.8-7.7 N IMMATURE GRANULOCYTE # (test code = IG#) 0.04 x10 3/uL 0-0.03 H LYMPHOCYTE # (test code = LY#) 0.95 K/mm3 1.0-5.0 L MONOCYTE # (test code = MO#) 0.37 K/mm3 0-0.8 N EOSINOPHIL # (test code = EO#) 0.02 K/mm3 0.0-0.5 N BASOPHIL # (test code = BA#) 0.01 K/mm3 0.0-0.2 N NUCLEATED RBC # (test code = NRBC#) 0.00 K/mm3 0.0-0.1 N MANUAL DIFF REQUIRED (test code = MDIFF) YES STAIN ACCEPTABILITY (test code = STN ACCEPTABLE) STAIN ACCEPTABLE TOTAL CELLS COUNTED (test code = TCC) 114 #CELLS SEGMENTED NEUTROPHILS (test code = SEG) 78 % 39-69 H BAND NEUTROPHIL (test code = BAND) 1 % 0-10 N LYMPHOCYTE (test code = LYMPH) 12 % 25-55 L REACTIVE LYMPH (test code = RELYMPH) 0 % MONOCYTE (test code = MON) 8 % 0-10 N EOSINOPHIL (test code = EOS) 1 % 0.0-5.0 N BASOPHIL (test code = BASO) 0 % 0-1.0 N METAMYELOCYTE (test code = META) 0 % 0-0 N MYELOCYTE (test code = MYELO) 0 % 0.0-0.0 N PROMYELOCYTE (test code = PROM) 0 % 0-0 N POIKILOCYTOSIS (test code = POIK) 1+ ANISOCYTOSIS (test code = ANISO) 1+ TARGET CELLS (test code = TGT) 1+ PLATELET ESTIMATE (test code = PLTEST) DECREASED PLATELET MORPHOLOGY (test code = PLTMORPH) NORMAL IMMATURE FORMS (test code = IMMAT) 0 % - XR CHEST 1 [id number] 07:54:00 FAX: Sarita Macedo MD [place]: B St: ADM FAX: Shirin Luong MD Name: SIOBHAN BARBOSA [facility] : 1965 Age/S: 53/F [address] Unit #: [id number] Loc: [address] [place] [id number] Phys: Sarita Macedo MD Acct: [id number] Dis Date: Status: ADM IN PHONE #: [phone] Exam Date: 10/31/2018 0537 FAX #: [phone] Reason: intubated/vented EXAMS: CPT CODE: [id number] XR CHEST 1 V 12401 EXAM: Chest x-ray, one view; INFORMATION: Septic shock; IMPRESSION: 1. The heart has decreased in size. Its size is within upper limits of normal. 2. Patchy densities in the left lung base consistent with an infiltrate. Electronically Signed by Michelet Alvarez on 0 10/31/2018 at 0754 Reported and signed by: Pj Alvarez M.D. CC: Sarita Macedo MD; Shirin Knott Technologist: HARLEY TURNER JR; [place] RETANA(R) Trnscrd Date/Time/By: 10/31/2018 (0754) : By: [email or web address] Orig Print D/T: S: 10/31/2018 (0757) PAGE 1 Signed Report COMPREHENSIVE METABOLIC [id number] 07:50:00* Test Item Value Reference Range Interpretation Comments SODIUM (test code = NA) 142 mmol/L 136-145 N POTASSIUM (test code = K) 3.3 mmol/L 3.5-5.1 L CHLORIDE (test code = CL) 108.0 mmol/L 98-107 H CARBON DIOXIDE (test code = CO2) 24.0 mmol/L 21-32 N ANION GAP (test code = GAP) 13.3 10-20 N GLUCOSE (test code = GLU) 86 mg/dL 74-106 N BLOOD UREA NITROGEN (test code = BUN) 28 mg/dL 7-18 H GLOMERULAR FILTRATION RATE (test code = GFR) 19 mL/min >=60 Estimated GFR by using Modified MDRD formula.Chronic kidney disease is defined as either kidney damageor GFR <60 mL/min/1.73 m2 for >3 months. CREATININE (test code = CREAT) 2.60 mg/dL 0.55-1.02 H Note change in reference range due to change in reagent. BUN/CREATININE RATIO (test code = BUN/CREA) 10.8 10-20 N TOTAL PROTEIN (test code = PROT) 5.5 gram/dL 6.4-8.2 L ALBUMIN (test code = ALB) 2.1 g/dL 3.4-5.0 L GLOBULIN (test code = GLOB) 3.4 gram/dL 2.7-4.2 N ALBUMIN/GLOBULIN RATIO (test code = A/G) 0.6 0.75-1.50 L CALCIUM (test code = CA) 8.8 mg/dL 8.5-10.1 N BILIRUBIN TOTAL (test code = BILT) 2.20 mg/dL 0.0-1.0 H SGOT/AST (test code = AST) 17 IUnit/L 15-37 N SGPT/ALT (test code = ALT) 19 IUnit/L 12-78 N ALKALINE PHOSPHATASE TOTAL (test code = ALKP) 252 IUnit/L 45-117 H Note change in reference range due to change in reagent. [id number] 07:50:00* Test Item Value Reference Range Interpretation Comments PHOSPHORUS (test code = PHOS) 4.7 mg/dL 2.5-4.9 N [id number] 07:50:00* Test Item Value Reference Range Interpretation Comments MAGNESIUM (test code = MAG) 2.1 mg/dL 1.8-2.4 N COMPREHENSIVE METABOLIC [id number] 07:38:00* Test Item Value Reference Range Interpretation Comments SODIUM (test code = NA) 142 mmol/L 136-145 N POTASSIUM (test code = K) 3.3 mmol/L 3.5-5.1 L CHLORIDE (test code = CL) 108.0 mmol/L 98-107 H CARBON DIOXIDE (test code = CO2) mmol/L 21-32 ANION GAP (test code = GAP) 10-20 GLUCOSE (test code = GLU) mg/dL 74-106 BLOOD UREA NITROGEN (test code = BUN) mg/dL 7-18 GLOMERULAR FILTRATION RATE (test code = GFR) mL/min >=60 CREATININE (test code = CREAT) mg/dL 0.55-1.02 BUN/CREATININE RATIO (test code = BUN/CREA) 10-20 TOTAL PROTEIN (test code = PROT) gram/dL 6.4-8.2 ALBUMIN (test code = ALB) g/dL 3.4-5.0 GLOBULIN (test code = GLOB) gram/dL 2.7-4.2 ALBUMIN/GLOBULIN RATIO (test code = A/G) 0.75-1.50 CALCIUM (test code = CA) mg/dL 8.5-10.1 BILIRUBIN TOTAL (test code = BILT) mg/dL 0.0-1.0 SGOT/AST (test code = AST) IUnit/L 15-37 SGPT/ALT (test code = ALT) IUnit/L 12-78 ALKALINE PHOSPHATASE TOTAL (test code = ALKP) IUnit/L 45-117 [id number] 07:38:00* Test Item Value Reference Range Interpretation Comments PHOSPHORUS (test code = PHOS) mg/dL 2.5-4.9 [id number] 07:38:00* Test Item Value Reference Range Interpretation Comments MAGNESIUM (test code = MAG) mg/dL 1.8-2.4 CBC W/MANUAL [id number] 07:11:00* Test Item Value Reference Range Interpretation Comments WHITE BLOOD CELL (test code = WBC) 4.6 K/mm3 4.5-12.5 N RED BLOOD CELL (test code = RBC) 3.45 mill/mm3 3.7-5.2 L HEMOGLOBIN (test code = HGB) 9.2 gram/dL 11.5-15.5 L HEMATOCRIT (test code = HCT) 29.8 % 36.0-46.0 L MEAN CELL VOLUME (test code = MCV) 86.4 fL 80-98 N MEAN CELL HGB (test code = MCH) 26.7 picogram 27.0-33.0 L MEAN CELL HGB CONCETRATION (test code = MCHC) 30.9 gram/dL 33.0-36. 0 L RED CELL DISTRIBUTION WIDTH (test code = RDW) 16.9 % 11.6-16. 2 H RED CELL DISTRIBUTION WIDTH SD (test code = RDW-SD) 51.7 fL 37 .0-51.0 H PLATELET COUNT (test code = PLT) 31 K/mm3 150-450 LL Results called to [id number] by MYAH 10/31/18 0711Critical results verified and read back by Nurse? Y MEAN PLATELET VOLUME (test code = MPV) 12.7 fL 6.7-11.0 H IMMATURE GRANULOCYTE % (test code = IG%) 0.9 % 0.0-5.0 N NUCLEATED RBC % (test code = NRBC%) 0.0 % 0-0 N NEUTROPHIL # (test code = NT#) 3.24 K/mm3 1.8-7.7 N IMMATURE GRANULOCYTE # (test code = IG#) 0.04 x10 3/uL 0-0.03 H LYMPHOCYTE # (test code = LY#) 0.95 K/mm3 1.0-5.0 L MONOCYTE # (test code = MO#) 0.37 K/mm3 0-0.8 N EOSINOPHIL # (test code = EO#) 0.02 K/mm3 0.0-0.5 N BASOPHIL # (test code = BA#) 0.01 K/mm3 0.0-0.2 N NUCLEATED RBC # (test code = NRBC#) 0.00 K/mm3 0.0-0.1 N MANUAL DIFF REQUIRED (test code = MDIFF) YES STAIN ACCEPTABILITY (test code = STN ACCEPTABLE) TOTAL CELLS COUNTED (test code = TCC) #CELLS SEGMENTED NEUTROPHILS (test code = SEG) % 39-69 LYMPHOCYTE (test code = LYMPH) % 25-55 MONOCYTE (test code = MON) % 0-10 EOSINOPHIL (test code = EOS) % 0.0-5.0 CABOT RINGS (test code = CAB) MORPHOLOGY COMMENT (test code = MOC) PLATELET ESTIMATE (test code = PLTEST) PLATELET MORPHOLOGY (test code = PLTMORPH) CBC W/MANUAL [id number] 07:11:00* Test Item Value Reference Range Interpretation Comments WHITE BLOOD CELL (test code = WBC) 4.6 K/mm3 4.5-12.5 N RED BLOOD CELL (test code = RBC) 3.45 mill/mm3 3.7-5.2 L HEMOGLOBIN (test code = HGB) 9.2 gram/dL 11.5-15.5 L HEMATOCRIT (test code = HCT) 29.8 % 36.0-46.0 L MEAN CELL VOLUME (test code = MCV) 86.4 fL 80-98 N MEAN CELL HGB (test code = MCH) 26.7 picogram 27.0-33.0 L MEAN CELL HGB CONCETRATION (test code = MCHC) 30.9 gram/dL 33.0-36. 0 L RED CELL DISTRIBUTION WIDTH (test code = RDW) 16.9 % 11.6-16. 2 H RED CELL DISTRIBUTION WIDTH SD (test code = RDW-SD) 51.7 fL 37 .0-51.0 H PLATELET COUNT (test code = PLT) 31 K/mm3 150-450 LL Results called to [id number] by MYAH 10/31/18 0711Critical results verified and read back by Nurse? Y MEAN PLATELET VOLUME (test code = MPV) 12.7 fL 6.7-11.0 H IMMATURE GRANULOCYTE % (test code = IG%) 0.9 % 0.0-5.0 N NUCLEATED RBC % (test code = NRBC%) 0.0 % 0-0 N NEUTROPHIL # (test code = NT#) 3.24 K/mm3 1.8-7.7 N IMMATURE GRANULOCYTE # (test code = IG#) 0.04 x10 3/uL 0-0.03 H LYMPHOCYTE # (test code = LY#) 0.95 K/mm3 1.0-5.0 L MONOCYTE # (test code = MO#) 0.37 K/mm3 0-0.8 N EOSINOPHIL # (test code = EO#) 0.02 K/mm3 0.0-0.5 N BASOPHIL # (test code = BA#) 0.01 K/mm3 0.0-0.2 N NUCLEATED RBC # (test code = NRBC#) 0.00 K/mm3 0.0-0.1 N MANUAL DIFF REQUIRED (test code = MDIFF) YES STAIN ACCEPTABILITY (test code = STN ACCEPTABLE) TOTAL CELLS COUNTED (test code = TCC) #CELLS SEGMENTED NEUTROPHILS (test code = SEG) % 39-69 LYMPHOCYTE (test code = LYMPH) % 25-55 MONOCYTE (test code = MON) % 0-10 EOSINOPHIL (test code = EOS) % 0.0-5.0 CABOT RINGS (test code = CAB) MORPHOLOGY COMMENT (test code = MOC) PLATELET ESTIMATE (test code = PLTEST) PLATELET MORPHOLOGY (test code = PLTMORPH) CBC W/MANUAL [id number] 07:11:00* Test Item Value Reference Range Interpretation Comments WHITE BLOOD CELL (test code = WBC) 4.6 K/mm3 4.5-12.5 N RED BLOOD CELL (test code = RBC) 3.45 mill/mm3 3.7-5.2 L HEMOGLOBIN (test code = HGB) 9.2 gram/dL 11.5-15.5 L HEMATOCRIT (test code = HCT) 29.8 % 36.0-46.0 L MEAN CELL VOLUME (test code = MCV) 86.4 fL 80-98 N MEAN CELL HGB (test code = MCH) 26.7 picogram 27.0-33.0 L MEAN CELL HGB CONCETRATION (test code = MCHC) 30.9 gram/dL 33.0-36. 0 L RED CELL DISTRIBUTION WIDTH (test code = RDW) 16.9 % 11.6-16. 2 H RED CELL DISTRIBUTION WIDTH SD (test code = RDW-SD) 51.7 fL 37 .0-51.0 H PLATELET COUNT (test code = PLT) 31 K/mm3 150-450 LL Results called to [id number] by MYAH 10/31/18 0711Critical results verified and read back by Nurse? Y MEAN PLATELET VOLUME (test code = MPV) 12.7 fL 6.7-11.0 H IMMATURE GRANULOCYTE % (test code = IG%) 0.9 % 0.0-5.0 N NUCLEATED RBC % (test code = NRBC%) 0.0 % 0-0 N NEUTROPHIL # (test code = NT#) 3.24 K/mm3 1.8-7.7 N IMMATURE GRANULOCYTE # (test code = IG#) 0.04 x10 3/uL 0-0.03 H LYMPHOCYTE # (test code = LY#) 0.95 K/mm3 1.0-5.0 L MONOCYTE # (test code = MO#) 0.37 K/mm3 0-0.8 N EOSINOPHIL # (test code = EO#) 0.02 K/mm3 0.0-0.5 N BASOPHIL # (test code = BA#) 0.01 K/mm3 0.0-0.2 N NUCLEATED RBC # (test code = NRBC#) 0.00 K/mm3 0.0-0.1 N MANUAL DIFF REQUIRED (test code = MDIFF) YES STAIN ACCEPTABILITY (test code = STN ACCEPTABLE) TOTAL CELLS COUNTED (test code = TCC) #CELLS SEGMENTED NEUTROPHILS (test code = SEG) % 39-69 LYMPHOCYTE (test code = LYMPH) % 25-55 MONOCYTE (test code = MON) % 0-10 EOSINOPHIL (test code = EOS) % 0.0-5.0 MORPHOLOGY COMMENT (test code = MOC) PLATELET ESTIMATE (test code = PLTEST) PLATELET MORPHOLOGY (test code = PLTMORPH) CBC W/MANUAL [id number] 07:11:00* Test Item Value Reference Range Interpretation Comments WHITE BLOOD CELL (test code = WBC) 4.6 K/mm3 4.5-12.5 N RED BLOOD CELL (test code = RBC) 3.45 mill/mm3 3.7-5.2 L HEMOGLOBIN (test code = HGB) 9.2 gram/dL 11.5-15.5 L HEMATOCRIT (test code = HCT) 29.8 % 36.0-46.0 L MEAN CELL VOLUME (test code = MCV) 86.4 fL 80-98 N MEAN CELL HGB (test code = MCH) 26.7 picogram 27.0-33.0 L MEAN CELL HGB CONCETRATION (test code = MCHC) 30.9 gram/dL 33.0-36. 0 L RED CELL DISTRIBUTION WIDTH (test code = RDW) 16.9 % 11.6-16. 2 H RED CELL DISTRIBUTION WIDTH SD (test code = RDW-SD) 51.7 fL 37 .0-51.0 H PLATELET COUNT (test code = PLT) 31 K/mm3 150-450 LL Results called to [id number] by VWilliamsLABKAT 10/31/18 0711Critical results verified and read back by Nurse? Y MEAN PLATELET VOLUME (test code = MPV) 12.7 fL 6.7-11.0 H IMMATURE GRANULOCYTE % (test code = IG%) 0.9 % 0.0-5.0 N NUCLEATED RBC % (test code = NRBC%) 0.0 % 0-0 N NEUTROPHIL # (test code = NT#) 3.24 K/mm3 1.8-7.7 N IMMATURE GRANULOCYTE # (test code = IG#) 0.04 x10 3/uL 0-0.03 H LYMPHOCYTE # (test code = LY#) 0.95 K/mm3 1.0-5.0 L MONOCYTE # (test code = MO#) 0.37 K/mm3 0-0.8 N EOSINOPHIL # (test code = EO#) 0.02 K/mm3 0.0-0.5 N BASOPHIL # (test code = BA#) 0.01 K/mm3 0.0-0.2 N NUCLEATED RBC # (test code = NRBC#) 0.00 K/mm3 0.0-0.1 N MANUAL DIFF REQUIRED (test code = MDIFF) YES STAIN ACCEPTABILITY (test code = STN ACCEPTABLE) TOTAL CELLS COUNTED (test code = TCC) #CELLS SEGMENTED NEUTROPHILS (test code = SEG) % 39-69 LYMPHOCYTE (test code = LYMPH) % 25-55 MONOCYTE (test code = MON) % 0-10 MORPHOLOGY COMMENT (test code = MOC) PLATELET ESTIMATE (test code = PLTEST) PLATELET MORPHOLOGY (test code = PLTMORPH) CBC W/MANUAL [id number] 07:11:00* Test Item Value Reference Range Interpretation Comments WHITE BLOOD CELL (test code = WBC) 4.6 K/mm3 4.5-12.5 N RED BLOOD CELL (test code = RBC) 3.45 mill/mm3 3.7-5.2 L HEMOGLOBIN (test code = HGB) 9.2 gram/dL 11.5-15.5 L HEMATOCRIT (test code = HCT) 29.8 % 36.0-46.0 L MEAN CELL VOLUME (test code = MCV) 86.4 fL 80-98 N MEAN CELL HGB (test code = MCH) 26.7 picogram 27.0-33.0 L MEAN CELL HGB CONCETRATION (test code = MCHC) 30.9 gram/dL 33.0-36. 0 L RED CELL DISTRIBUTION WIDTH (test code = RDW) 16.9 % 11.6-16. 2 H RED CELL DISTRIBUTION WIDTH SD (test code = RDW-SD) 51.7 fL 37 .0-51.0 H PLATELET COUNT (test code = PLT) 31 K/mm3 150-450 LL Results called to [id number] by MYAH 10/31/18 0711Critical results verified and read back by Nurse? Y MEAN PLATELET VOLUME (test code = MPV) 12.7 fL 6.7-11.0 H IMMATURE GRANULOCYTE % (test code = IG%) 0.9 % 0.0-5.0 N NUCLEATED RBC % (test code = NRBC%) 0.0 % 0-0 N NEUTROPHIL # (test code = NT#) 3.24 K/mm3 1.8-7.7 N IMMATURE GRANULOCYTE # (test code = IG#) 0.04 x10 3/uL 0-0.03 H LYMPHOCYTE # (test code = LY#) 0.95 K/mm3 1.0-5.0 L MONOCYTE # (test code = MO#) 0.37 K/mm3 0-0.8 N EOSINOPHIL # (test code = EO#) 0.02 K/mm3 0.0-0.5 N BASOPHIL # (test code = BA#) 0.01 K/mm3 0.0-0.2 N NUCLEATED RBC # (test code = NRBC#) 0.00 K/mm3 0.0-0.1 N MANUAL DIFF REQUIRED (test code = MDIFF) YES STAIN ACCEPTABILITY (test code = STN ACCEPTABLE) TOTAL CELLS COUNTED (test code = TCC) #CELLS SEGMENTED NEUTROPHILS (test code = SEG) % 39-69 LYMPHOCYTE (test code = LYMPH) % 25-55 MONOCYTE (test code = MON) % 0-10 EOSINOPHIL (test code = EOS) % 0.0-5.0 CABOT RINGS (test code = CAB) MORPHOLOGY COMMENT (test code = MOC) PLATELET ESTIMATE (test code = PLTEST) PLATELET MORPHOLOGY (test code = PLTMORPH) [id number] 16:45:00* Test Item Value Reference Range Interpretation Comments GLUBED (test code = GLUBED) 84 mg/dL 74-106 N Performed by certified machine operator hop picker at [facility] ([facility])Notified Nurse~ [id number] 08:24:00* Test Item Value Reference Range Interpretation Comments GLUBED (test code = GLUBED) 64 mg/dL 74-106 L Performed by certified machine operator hop picker at [facility])Notified Nurse~ - XR CHEST 1 [id number] 07:30:00 FAX: Sarita Macedo MD [place]: B St: ADM FAX: Shirin Luong MD Name: SIOBHAN BARBOSA [facility] : 1965 Age/S: 53/F [address] [facility] Unit #: [id number] Loc: V.S23 [place] [address] Phys: Sarita Macedo MD Acct: [id number] Dis Date: Status: ADM IN PHONE #: [phone] Exam Date: 10/30/2018527 FAX #: [phone] Reason: intubated/vented EXAMS: CPT CODE: [id number] XR CHEST 1 V [id number] CLINICAL HISTORY: intubated/vented; septic shock TECHNIQUE: AP chest x-ray COMPARISON: Previous day. IMPRESSION: No significant interval change. Small bilateral pleural effusion with basilar atelectasis. Mild cardiomegaly. Right hemodialysis catheter. at 0730 Reported and signed by: Nguyen Krishna D.O. CC: Sarita Macedo MD; Shirin Knott Technologist: RT KIANA(R); Cathi Brock Trnscrd Date/Time/By: 10/30/2018 (07) : By: [email or web address] Orig Print D/ T: S: 10/30/2018 (0716) PAGE 1 Si gned Report CBC W/MANUAL [id number] 06:24:00* Test Item Value Reference Range Interpretation Comments WHITE BLOOD CELL (test code = WBC) 3.5 K/mm3 4.5-12.5 L RED BLOOD CELL (test code = RBC) 3.02 mill/mm3 3.7-5.2 L HEMOGLOBIN (test code = HGB) 7.9 gram/dL 11.5-15.5 L HEMATOCRIT (test code = HCT) 26.8 % 36.0-46.0 L MEAN CELL VOLUME (test code = MCV) 88.7 fL 80-98 N MEAN CELL HGB (test code = MCH) 26.2 picogram 27.0-33.0 L MEAN CELL HGB CONCETRATION (test code = MCHC) 29.5 gram/dL 33.0-36. 0 L RED CELL DISTRIBUTION WIDTH (test code = RDW) 16.4 % 11.6-16. 2 H RED CELL DISTRIBUTION WIDTH SD (test code = RDW-SD) 51.9 fL 37 .0-51.0 H PLATELET COUNT (test code = PLT) 15 K/mm3 150-450 LL Results called to [id number] by MARIUM 10/30/18 0549Critical results verified and read back by Nurse? Y MEAN PLATELET VOLUME (test code = MPV) TEST NOT PERFORMED fL 6.7-11 .0 IMMATURE GRANULOCYTE % (test code = IG%) 0.6 % 0.0-5.0 N NUCLEATED RBC % (test code = NRBC%) 0.0 % 0-0 N NEUTROPHIL # (test code = NT#) 2.29 K/mm3 1.8-7.7 N IMMATURE GRANULOCYTE # (test code = IG#) 0.02 x10 3/uL 0-0.03 N LYMPHOCYTE # (test code = LY#) 0.84 K/mm3 1.0-5.0 L MONOCYTE # (test code = MO#) 0.26 K/mm3 0-0.8 N EOSINOPHIL # (test code = EO#) 0.04 K/mm3 0.0-0.5 N BASOPHIL # (test code = BA#) 0.01 K/mm3 0.0-0.2 N NUCLEATED RBC # (test code = NRBC#) 0.00 K/mm3 0.0-0.1 N MANUAL DIFF REQUIRED (test code = MDIFF) YES STAIN ACCEPTABILITY (test code = STN ACCEPTABLE) STAIN ACCEPTABLE TOTAL CELLS COUNTED (test code = TCC) 115 #CELLS SEGMENTED NEUTROPHILS (test code = SEG) 79.1 % 39-69 H BAND NEUTROPHIL (test code = BAND) 0 % 0-10 N LYMPHOCYTE (test code = LYMPH) 14.8 % 25-55 L REACTIVE LYMPH (test code = RELYMPH) 0 % MONOCYTE (test code = MON) 6.1 % 0-10 N EOSINOPHIL (test code = EOS) 0 % 0.0-5.0 N BASOPHIL (test code = BASO) 0 % 0-1.0 N METAMYELOCYTE (test code = META) 0 % 0-0 N MYELOCYTE (test code = MYELO) 0 % 0.0-0.0 N PROMYELOCYTE (test code = PROM) 0 % 0-0 N POIKILOCYTOSIS (test code = POIK) 1+ ANISOCYTOSIS (test code = ANISO) 1+ PLATELET ESTIMATE (test code = PLTEST) DECREASED PLATELET MORPHOLOGY (test code = PLTMORPH) NORMAL IMMATURE FORMS (test code = IMMAT) 0 % COMPREHENSIVE METABOLIC [id number] 06:16:00* Test Item Value Reference Range Interpretation Comments SODIUM (test code = NA) 141 mmol/L 136-145 N POTASSIUM (test code = K) 3.4 mmol/L 3.5-5.1 L CHLORIDE (test code = CL) 108.0 mmol/L 98-107 H CARBON DIOXIDE (test code = CO2) 24.0 mmol/L 21-32 N ANION GAP (test code = GAP) 12.4 10-20 N GLUCOSE (test code = GLU) 70 mg/dL 74-106 L BLOOD UREA NITROGEN (test code = BUN) 29 mg/dL 7-18 H GLOMERULAR FILTRATION RATE (test code = GFR) 22 mL/min >=60 Estimated GFR by using Modified MDRD formula.Chronic kidney disease is defined as either kidney damageor GFR <60 mL/min/1.73 m2 for >3 months. CREATININE (test code = CREAT) 2.30 mg/dL 0.55-1.02 H Note change in reference range due to change in reagent. BUN/CREATININE RATIO (test code = BUN/CREA) 12.6 10-20 N TOTAL PROTEIN (test code = PROT) 4.7 gram/dL 6.4-8.2 L ALBUMIN (test code = ALB) 2.2 g/dL 3.4-5.0 L GLOBULIN (test code = GLOB) 2.5 gram/dL 2.7-4.2 L ALBUMIN/GLOBULIN RATIO (test code = A/G) 0.9 0.75-1.50 N CALCIUM (test code = CA) 8.5 mg/dL 8.5-10.1 N BILIRUBIN TOTAL (test code = BILT) 2.30 mg/dL 0.0-1.0 H SGOT/AST (test code = AST) 13 IUnit/L 15-37 L SGPT/ALT (test code = ALT) 15 IUnit/L 12-78 N ALKALINE PHOSPHATASE TOTAL (test code = ALKP) 217 IUnit/L 45-117 H Note change in reference range due to change in reagent. [id number] 06:16:00* Test Item Value Reference Range Interpretation Comments PHOSPHORUS (test code = PHOS) 5.2 mg/dL 2.5-4.9 H [id number] 06:16:00* Test Item Value Reference Range Interpretation Comments MAGNESIUM (test code = MAG) 1.7 mg/dL 1.8-2.4 L COMPREHENSIVE METABOLIC [id number] 06:09:00* Test Item Value Reference Range Interpretation Comments SODIUM (test code = NA) 141 mmol/L 136-145 N POTASSIUM (test code = K) 3.4 mmol/L 3.5-5.1 L CHLORIDE (test code = CL) 108.0 mmol/L 98-107 H CARBON DIOXIDE (test code = CO2) mmol/L 21-32 ANION GAP (test code = GAP) 10-20 GLUCOSE (test code = GLU) mg/dL 74-106 BLOOD UREA NITROGEN (test code = BUN) mg/dL 7-18 GLOMERULAR FILTRATION RATE (test code = GFR) mL/min >=60 CREATININE (test code = CREAT) mg/dL 0.55-1.02 BUN/CREATININE RATIO (test code = BUN/CREA) 10-20 TOTAL PROTEIN (test code = PROT) gram/dL 6.4-8.2 ALBUMIN (test code = ALB) g/dL 3.4-5.0 GLOBULIN (test code = GLOB) gram/dL 2.7-4.2 ALBUMIN/GLOBULIN RATIO (test code = A/G) 0.75-1.50 CALCIUM (test code = CA) mg/dL 8.5-10.1 BILIRUBIN TOTAL (test code = BILT) mg/dL 0.0-1.0 SGOT/AST (test code = AST) IUnit/L 15-37 SGPT/ALT (test code = ALT) IUnit/L 12-78 ALKALINE PHOSPHATASE TOTAL (test code = ALKP) IUnit/L 45-117 [id number] 06:09:00* Test Item Value Reference Range Interpretation Comments PHOSPHORUS (test code = PHOS) mg/dL 2.5-4.9 [id number] 06:09:00* Test Item Value Reference Range Interpretation Comments MAGNESIUM (test code = MAG) mg/dL 1.8-2.4 CBC W/MANUAL [id number] 05:50:00* Test Item Value Reference Range Interpretation Comments WHITE BLOOD CELL (test code = WBC) 3.5 K/mm3 4.5-12.5 L RED BLOOD CELL (test code = RBC) 3.02 mill/mm3 3.7-5.2 L HEMOGLOBIN (test code = HGB) 7.9 gram/dL 11.5-15.5 L HEMATOCRIT (test code = HCT) 26.8 % 36.0-46.0 L MEAN CELL VOLUME (test code = MCV) 88.7 fL 80-98 N MEAN CELL HGB (test code = MCH) 26.2 picogram 27.0-33.0 L MEAN CELL HGB CONCETRATION (test code = MCHC) 29.5 gram/dL 33.0-36. 0 L RED CELL DISTRIBUTION WIDTH (test code = RDW) 16.4 % 11.6-16. 2 H RED CELL DISTRIBUTION WIDTH SD (test code = RDW-SD) 51.9 fL 37 .0-51.0 H PLATELET COUNT (test code = PLT) 15 K/mm3 150-450 LL Results called to [id number] by V.LAB.ISRA 10/30/18 0549Critical results verified and read back by Nurse? Y MEAN PLATELET VOLUME (test code = MPV) TEST NOT PERFORMED fL 6.7-11 .0 IMMATURE GRANULOCYTE % (test code = IG%) 0.6 % 0.0-5.0 N NUCLEATED RBC % (test code = NRBC%) 0.0 % 0-0 N NEUTROPHIL # (test code = NT#) 2.29 K/mm3 1.8-7.7 N IMMATURE GRANULOCYTE # (test code = IG#) 0.02 x10 3/uL 0-0.03 N LYMPHOCYTE # (test code = LY#) 0.84 K/mm3 1.0-5.0 L MONOCYTE # (test code = MO#) 0.26 K/mm3 0-0.8 N EOSINOPHIL # (test code = EO#) 0.04 K/mm3 0.0-0.5 N BASOPHIL # (test code = BA#) 0.01 K/mm3 0.0-0.2 N NUCLEATED RBC # (test code = NRBC#) 0.00 K/mm3 0.0-0.1 N MANUAL DIFF REQUIRED (test code = MDIFF) YES STAIN ACCEPTABILITY (test code = STN ACCEPTABLE) TOTAL CELLS COUNTED (test code = TCC) #CELLS SEGMENTED NEUTROPHILS (test code = SEG) % 39-69 LYMPHOCYTE (test code = LYMPH) % 25-55 MONOCYTE (test code = MON) % 0-10 EOSINOPHIL (test code = EOS) % 0.0-5.0 CABOT RINGS (test code = CAB) MORPHOLOGY COMMENT (test code = MOC) PLATELET ESTIMATE (test code = PLTEST) PLATELET MORPHOLOGY (test code = PLTMORPH) CBC W/MANUAL [id number] 05:50:00* Test Item Value Reference Range Interpretation Comments WHITE BLOOD CELL (test code = WBC) 3.5 K/mm3 4.5-12.5 L RED BLOOD CELL (test code = RBC) 3.02 mill/mm3 3.7-5.2 L HEMOGLOBIN (test code = HGB) 7.9 gram/dL 11.5-15.5 L HEMATOCRIT (test code = HCT) 26.8 % 36.0-46.0 L MEAN CELL VOLUME (test code = MCV) 88.7 fL 80-98 N MEAN CELL HGB (test code = MCH) 26.2 picogram 27.0-33.0 L MEAN CELL HGB CONCETRATION (test code = MCHC) 29.5 gram/dL 33.0-36. 0 L RED CELL DISTRIBUTION WIDTH (test code = RDW) 16.4 % 11.6-16. 2 H RED CELL DISTRIBUTION WIDTH SD (test code = RDW-SD) 51.9 fL 37 .0-51.0 H PLATELET COUNT (test code = PLT) 15 K/mm3 150-450 LL Results called to [id number] by MELISSA.JCelena 10/30/18 0549Critical results verified and read back by Nurse? Y MEAN PLATELET VOLUME (test code = MPV) TEST NOT PERFORMED fL 6.7-11 .0 IMMATURE GRANULOCYTE % (test code = IG%) 0.6 % 0.0-5.0 N NUCLEATED RBC % (test code = NRBC%) 0.0 % 0-0 N NEUTROPHIL # (test code = NT#) 2.29 K/mm3 1.8-7.7 N IMMATURE GRANULOCYTE # (test code = IG#) 0.02 x10 3/uL 0-0.03 N LYMPHOCYTE # (test code = LY#) 0.84 K/mm3 1.0-5.0 L MONOCYTE # (test code = MO#) 0.26 K/mm3 0-0.8 N EOSINOPHIL # (test code = EO#) 0.04 K/mm3 0.0-0.5 N BASOPHIL # (test code = BA#) 0.01 K/mm3 0.0-0.2 N NUCLEATED RBC # (test code = NRBC#) 0.00 K/mm3 0.0-0.1 N MANUAL DIFF REQUIRED (test code = MDIFF) YES STAIN ACCEPTABILITY (test code = STN ACCEPTABLE) TOTAL CELLS COUNTED (test code = TCC) #CELLS SEGMENTED NEUTROPHILS (test code = SEG) % 39-69 LYMPHOCYTE (test code = LYMPH) % 25-55 MONOCYTE (test code = MON) % 0-10 EOSINOPHIL (test code = EOS) % 0.0-5.0 MORPHOLOGY COMMENT (test code = MOC) PLATELET ESTIMATE (test code = PLTEST) PLATELET MORPHOLOGY (test code = PLTMORPH) CBC W/MANUAL [id number] 05:50:00* Test Item Value Reference Range Interpretation Comments WHITE BLOOD CELL (test code = WBC) 3.5 K/mm3 4.5-12.5 L RED BLOOD CELL (test code = RBC) 3.02 mill/mm3 3.7-5.2 L HEMOGLOBIN (test code = HGB) 7.9 gram/dL 11.5-15.5 L HEMATOCRIT (test code = HCT) 26.8 % 36.0-46.0 L MEAN CELL VOLUME (test code = MCV) 88.7 fL 80-98 N MEAN CELL HGB (test code = MCH) 26.2 picogram 27.0-33.0 L MEAN CELL HGB CONCETRATION (test code = MCHC) 29.5 gram/dL 33.0-36. 0 L RED CELL DISTRIBUTION WIDTH (test code = RDW) 16.4 % 11.6-16. 2 H RED CELL DISTRIBUTION WIDTH SD (test code = RDW-SD) 51.9 fL 37 .0-51.0 H PLATELET COUNT (test code = PLT) 15 K/mm3 150-450 LL Results called to [id number] by MARIUM 10/30/18 0549Critical results verified and read back by Nurse? Y MEAN PLATELET VOLUME (test code = MPV) TEST NOT PERFORMED fL 6.7-11 .0 IMMATURE GRANULOCYTE % (test code = IG%) 0.6 % 0.0-5.0 N NUCLEATED RBC % (test code = NRBC%) 0.0 % 0-0 N NEUTROPHIL # (test code = NT#) 2.29 K/mm3 1.8-7.7 N IMMATURE GRANULOCYTE # (test code = IG#) 0.02 x10 3/uL 0-0.03 N LYMPHOCYTE # (test code = LY#) 0.84 K/mm3 1.0-5.0 L MONOCYTE # (test code = MO#) 0.26 K/mm3 0-0.8 N EOSINOPHIL # (test code = EO#) 0.04 K/mm3 0.0-0.5 N BASOPHIL # (test code = BA#) 0.01 K/mm3 0.0-0.2 N NUCLEATED RBC # (test code = NRBC#) 0.00 K/mm3 0.0-0.1 N MANUAL DIFF REQUIRED (test code = MDIFF) YES STAIN ACCEPTABILITY (test code = STN ACCEPTABLE) TOTAL CELLS COUNTED (test code = TCC) #CELLS SEGMENTED NEUTROPHILS (test code = SEG) % 39-69 LYMPHOCYTE (test code = LYMPH) % 25-55 MONOCYTE (test code = MON) % 0-10 MORPHOLOGY COMMENT (test code = MOC) PLATELET ESTIMATE (test code = PLTEST) PLATELET MORPHOLOGY (test code = PLTMORPH) CBC W/MANUAL [id number] 05:49:00* Test Item Value Reference Range Interpretation Comments WHITE BLOOD CELL (test code = WBC) 3.5 K/mm3 4.5-12.5 L RED BLOOD CELL (test code = RBC) 3.02 mill/mm3 3.7-5.2 L HEMOGLOBIN (test code = HGB) 7.9 gram/dL 11.5-15.5 L HEMATOCRIT (test code = HCT) 26.8 % 36.0-46.0 L MEAN CELL VOLUME (test code = MCV) 88.7 fL 80-98 N MEAN CELL HGB (test code = MCH) 26.2 picogram 27.0-33.0 L MEAN CELL HGB CONCETRATION (test code = MCHC) 29.5 gram/dL 33.0-36. 0 L RED CELL DISTRIBUTION WIDTH (test code = RDW) 16.4 % 11.6-16. 2 H RED CELL DISTRIBUTION WIDTH SD (test code = RDW-SD) 51.9 fL 37 .0-51.0 H PLATELET COUNT (test code = PLT) 15 K/mm3 150-450 LL Results called to [id number] by MARIUM 10/30/18 0549Critical results verified and read back by Nurse? Y MEAN PLATELET VOLUME (test code = MPV) TEST NOT PERFORMED fL 6.7-11 .0 IMMATURE GRANULOCYTE % (test code = IG%) 0.6 % 0.0-5.0 N NUCLEATED RBC % (test code = NRBC%) 0.0 % 0-0 N NEUTROPHIL # (test code = NT#) 2.29 K/mm3 1.8-7.7 N IMMATURE GRANULOCYTE # (test code = IG#) 0.02 x10 3/uL 0-0.03 N LYMPHOCYTE # (test code = LY#) 0.84 K/mm3 1.0-5.0 L MONOCYTE # (test code = MO#) 0.26 K/mm3 0-0.8 N EOSINOPHIL # (test code = EO#) 0.04 K/mm3 0.0-0.5 N BASOPHIL # (test code = BA#) 0.01 K/mm3 0.0-0.2 N NUCLEATED RBC # (test code = NRBC#) 0.00 K/mm3 0.0-0.1 N MANUAL DIFF REQUIRED (test code = MDIFF) YES STAIN ACCEPTABILITY (test code = STN ACCEPTABLE) TOTAL CELLS COUNTED (test code = TCC) #CELLS SEGMENTED NEUTROPHILS (test code = SEG) % 39-69 LYMPHOCYTE (test code = LYMPH) % 25-55 MONOCYTE (test code = MON) % 0-10 EOSINOPHIL (test code = EOS) % 0.0-5.0 CABOT RINGS (test code = CAB) MORPHOLOGY COMMENT (test code = MOC) PLATELET ESTIMATE (test code = PLTEST) PLATELET MORPHOLOGY (test code = PLTMORPH) CBC W/MANUAL [id number] 05:49:00* Test Item Value Reference Range Interpretation Comments WHITE BLOOD CELL (test code = WBC) 3.5 K/mm3 4.5-12.5 L RED BLOOD CELL (test code = RBC) 3.02 mill/mm3 3.7-5.2 L HEMOGLOBIN (test code = HGB) 7.9 gram/dL 11.5-15.5 L HEMATOCRIT (test code = HCT) 26.8 % 36.0-46.0 L MEAN CELL VOLUME (test code = MCV) 88.7 fL 80-98 N MEAN CELL HGB (test code = MCH) 26.2 picogram 27.0-33.0 L MEAN CELL HGB CONCETRATION (test code = MCHC) 29.5 gram/dL 33.0-36. 0 L RED CELL DISTRIBUTION WIDTH (test code = RDW) 16.4 % 11.6-16. 2 H RED CELL DISTRIBUTION WIDTH SD (test code = RDW-SD) 51.9 fL 37 .0-51.0 H PLATELET COUNT (test code = PLT) 15 K/mm3 150-450 LL Results called to [id number] by [email or web address] 10/30/18 0549Critical results verified and read back by Nurse? Y MEAN PLATELET VOLUME (test code = MPV) TEST NOT PERFORMED fL 6.7-11 .0 IMMATURE GRANULOCYTE % (test code = IG%) 0.6 % 0.0-5.0 N NUCLEATED RBC % (test code = NRBC%) 0.0 % 0-0 N NEUTROPHIL # (test code = NT#) 2.29 K/mm3 1.8-7.7 N IMMATURE GRANULOCYTE # (test code = IG#) 0.02 x10 3/uL 0-0.03 N LYMPHOCYTE # (test code = LY#) 0.84 K/mm3 1.0-5.0 L MONOCYTE # (test code = MO#) 0.26 K/mm3 0-0.8 N EOSINOPHIL # (test code = EO#) 0.04 K/mm3 0.0-0.5 N BASOPHIL # (test code = BA#) 0.01 K/mm3 0.0-0.2 N NUCLEATED RBC # (test code = NRBC#) 0.00 K/mm3 0.0-0.1 N MANUAL DIFF REQUIRED (test code = MDIFF) YES STAIN ACCEPTABILITY (test code = STN ACCEPTABLE) TOTAL CELLS COUNTED (test code = TCC) #CELLS SEGMENTED NEUTROPHILS (test code = SEG) % 39-69 LYMPHOCYTE (test code = LYMPH) % 25-55 MONOCYTE (test code = MON) % 0-10 EOSINOPHIL (test code = EOS) % 0.0-5.0 CABOT RINGS (test code = CAB) MORPHOLOGY COMMENT (test code = MOC) PLATELET ESTIMATE (test code = PLTEST) PLATELET MORPHOLOGY (test code = PLTMORPH) [id number] 17:01:00* Test Item Value Reference Range Interpretation Comments GLUBED (test code = GLUBED) 84 mg/dL 74-106 N Performed by certified machine operator hop picker at [facility])Notified Nurse~ [id number] 11:57:00* Test Item Value Reference Range Interpretation Comments GLUBED (test code = GLUBED) 73 mg/dL 74-106 L Performed by certified machine operator hop picker at [facility])Notified Nurse~ CBC W/AUTO [id number] 09:25:00* Test Item Value Reference Range Interpretation Comments WHITE BLOOD CELL (test code = WBC) 5.2 K/mm3 4.5-12.5 N RED BLOOD CELL (test code = RBC) 3.57 mill/mm3 3.7-5.2 L HEMOGLOBIN (test code = HGB) 9.8 gram/dL 11.5-15.5 L HEMATOCRIT (test code = HCT) 31.2 % 36.0-46.0 L MEAN CELL VOLUME (test code = MCV) 87.4 fL 80-98 N MEAN CELL HGB (test code = MCH) 27.5 picogram 27.0-33.0 N MEAN CELL HGB CONCETRATION (test code = MCHC) 31.4 gram/dL 33.0-36. 0 L RED CELL DISTRIBUTION WIDTH (test code = RDW) 16.1 % 11.6-16. 2 N RED CELL DISTRIBUTION WIDTH SD (test code = RDW-SD) 50.5 fL 37 .0-51.0 N PLATELET COUNT (test code = PLT) 21 K/mm3 150-450 LL Results called to [id number] by [email or web address] 10/29/18 0827Critical results verified and read back by Nurse? Y MEAN PLATELET VOLUME (test code = MPV) TEST NOT PERFORMED fL 6.7-11 .0 Unable to determine due to platelet abnormality , please seethe platelet morphology. NEUTROPHIL % (test code = NT%) 76.7 % 39.0-69.0 H IMMATURE GRANULOCYTE % (test code = IG%) 0.8 % 0.0-5.0 N LYMPHOCYTE % (test code = LY%) 15.1 % 25.0-55.0 L MONOCYTE % (test code = MO%) 6.8 % 0.0-10.0 N EOSINOPHIL % (test code = EO%) 0.4 % 0.0-5.0 N BASOPHIL % (test code = BA%) 0.2 % 0.0-1.0 N NUCLEATED RBC % (test code = NRBC%) 0.0 % 0-0 N NEUTROPHIL # (test code = NT#) 3.97 K/mm3 1.8-7.7 N IMMATURE GRANULOCYTE # (test code = IG#) 0.04 x10 3/uL 0-0.03 H LYMPHOCYTE # (test code = LY#) 0.78 K/mm3 1.0-5.0 L MONOCYTE # (test code = MO#) 0.35 K/mm3 0-0.8 N EOSINOPHIL # (test code = EO#) 0.02 K/mm3 0.0-0.5 N BASOPHIL # (test code = BA#) 0.01 K/mm3 0.0-0.2 N NUCLEATED RBC # (test code = NRBC#) 0.00 K/mm3 0.0-0.1 N MANUAL DIFF REQUIRED (test code = MDIFF) NO, ONLY SCAN NEEDED DIFFERENTIAL [id number] 09:25:00* Test Item Value Reference Range Interpretation Comments STAIN ACCEPTABILITY (test code = STN ACCEPTABLE) STAIN ACCEPTABLE POLYCHROMASIA (test code = POLC) 1+ ANISOCYTOSIS (test code = ANISO) 1+ MACROCYTOSIS (test code = MACR) 1+ PLATELET ESTIMATE (test code = PLTEST) DECREASED PLATELET MORPHOLOGY (test code = PLTMORPH) NORMAL CBC W/AUTO [id number] 08:28:00* Test Item Value Reference Range Interpretation Comments WHITE BLOOD CELL (test code = WBC) 5.2 K/mm3 4.5-12.5 N RED BLOOD CELL (test code = RBC) 3.57 mill/mm3 3.7-5.2 L HEMOGLOBIN (test code = HGB) 9.8 gram/dL 11.5-15.5 L HEMATOCRIT (test code = HCT) 31.2 % 36.0-46.0 L MEAN CELL VOLUME (test code = MCV) 87.4 fL 80-98 N MEAN CELL HGB (test code = MCH) 27.5 picogram 27.0-33.0 N MEAN CELL HGB CONCETRATION (test code = MCHC) 31.4 gram/dL 33.0-36. 0 L RED CELL DISTRIBUTION WIDTH (test code = RDW) 16.1 % 11.6-16. 2 N RED CELL DISTRIBUTION WIDTH SD (test code = RDW-SD) 50.5 fL 37 .0-51.0 N PLATELET COUNT (test code = PLT) 21 K/mm3 150-450 LL Results called to [id number] by V.LAB.CF2 10/29/18 0827Critical results verified and read back by Nurse? Y MEAN PLATELET VOLUME (test code = MPV) TEST NOT PERFORMED fL 6.7-11 .0 Unable to determine due to platelet abnormality , please seethe platelet morphology. NEUTROPHIL % (test code = NT%) 76.7 % 39.0-69.0 H IMMATURE GRANULOCYTE % (test code = IG%) 0.8 % 0.0-5.0 N LYMPHOCYTE % (test code = LY%) 15.1 % 25.0-55.0 L MONOCYTE % (test code = MO%) 6.8 % 0.0-10.0 N EOSINOPHIL % (test code = EO%) 0.4 % 0.0-5.0 N BASOPHIL % (test code = BA%) 0.2 % 0.0-1.0 N NUCLEATED RBC % (test code = NRBC%) 0.0 % 0-0 N NEUTROPHIL # (test code = NT#) 3.97 K/mm3 1.8-7.7 N IMMATURE GRANULOCYTE # (test code = IG#) 0.04 x10 3/uL 0-0.03 H LYMPHOCYTE # (test code = LY#) 0.78 K/mm3 1.0-5.0 L MONOCYTE # (test code = MO#) 0.35 K/mm3 0-0.8 N EOSINOPHIL # (test code = EO#) 0.02 K/mm3 0.0-0.5 N BASOPHIL # (test code = BA#) 0.01 K/mm3 0.0-0.2 N NUCLEATED RBC # (test code = NRBC#) 0.00 K/mm3 0.0-0.1 N MANUAL DIFF REQUIRED (test code = MDIFF) NO, ONLY SCAN NEEDED DIFFERENTIAL [id number] 08:28:00* Test Item Value Reference Range Interpretation Comments STAIN ACCEPTABILITY (test code = STN ACCEPTABLE) CABOT RINGS (test code = CAB) MORPHOLOGY COMMENT (test code = MOC) PLATELET ESTIMATE (test code = PLTEST) PLATELET MORPHOLOGY (test code = PLTMORPH) CBC W/AUTO [id number] 08:28:00* Test Item Value Reference Range Interpretation Comments WHITE BLOOD CELL (test code = WBC) 5.2 K/mm3 4.5-12.5 N RED BLOOD CELL (test code = RBC) 3.57 mill/mm3 3.7-5.2 L HEMOGLOBIN (test code = HGB) 9.8 gram/dL 11.5-15.5 L HEMATOCRIT (test code = HCT) 31.2 % 36.0-46.0 L MEAN CELL VOLUME (test code = MCV) 87.4 fL 80-98 N MEAN CELL HGB (test code = MCH) 27.5 picogram 27.0-33.0 N MEAN CELL HGB CONCETRATION (test code = MCHC) 31.4 gram/dL 33.0-36. 0 L RED CELL DISTRIBUTION WIDTH (test code = RDW) 16.1 % 11.6-16. 2 N RED CELL DISTRIBUTION WIDTH SD (test code = RDW-SD) 50.5 fL 37 .0-51.0 N PLATELET COUNT (test code = PLT) 21 K/mm3 150-450 LL Results called to [id number] by MELISSA.CF2 10/29/18 0827Critical results verified and read back by Nurse? Y MEAN PLATELET VOLUME (test code = MPV) TEST NOT PERFORMED fL 6.7-11 .0 Unable to determine due to platelet abnormality , please seethe platelet morphology. NEUTROPHIL % (test code = NT%) 76.7 % 39.0-69.0 H IMMATURE GRANULOCYTE % (test code = IG%) 0.8 % 0.0-5.0 N LYMPHOCYTE % (test code = LY%) 15.1 % 25.0-55.0 L MONOCYTE % (test code = MO%) 6.8 % 0.0-10.0 N EOSINOPHIL % (test code = EO%) 0.4 % 0.0-5.0 N BASOPHIL % (test code = BA%) 0.2 % 0.0-1.0 N NUCLEATED RBC % (test code = NRBC%) 0.0 % 0-0 N NEUTROPHIL # (test code = NT#) 3.97 K/mm3 1.8-7.7 N IMMATURE GRANULOCYTE # (test code = IG#) 0.04 x10 3/uL 0-0.03 H LYMPHOCYTE # (test code = LY#) 0.78 K/mm3 1.0-5.0 L MONOCYTE # (test code = MO#) 0.35 K/mm3 0-0.8 N EOSINOPHIL # (test code = EO#) 0.02 K/mm3 0.0-0.5 N BASOPHIL # (test code = BA#) 0.01 K/mm3 0.0-0.2 N NUCLEATED RBC # (test code = NRBC#) 0.00 K/mm3 0.0-0.1 N MANUAL DIFF REQUIRED (test code = MDIFF) NO, ONLY SCAN NEEDED DIFFERENTIAL [id number] 08:28:00* Test Item Value Reference Range Interpretation Comments STAIN ACCEPTABILITY (test code = STN ACCEPTABLE) MORPHOLOGY COMMENT (test code = MOC) PLATELET ESTIMATE (test code = PLTEST) PLATELET MORPHOLOGY (test code = PLTMORPH) CBC W/AUTO [id number] 08:27:00* Test Item Value Reference Range Interpretation Comments WHITE BLOOD CELL (test code = WBC) 5.2 K/mm3 4.5-12.5 N RED BLOOD CELL (test code = RBC) 3.57 mill/mm3 3.7-5.2 L HEMOGLOBIN (test code = HGB) 9.8 gram/dL 11.5-15.5 L HEMATOCRIT (test code = HCT) 31.2 % 36.0-46.0 L MEAN CELL VOLUME (test code = MCV) 87.4 fL 80-98 N MEAN CELL HGB (test code = MCH) 27.5 picogram 27.0-33.0 N MEAN CELL HGB CONCETRATION (test code = MCHC) 31.4 gram/dL 33.0-36. 0 L RED CELL DISTRIBUTION WIDTH (test code = RDW) 16.1 % 11.6-16. 2 N RED CELL DISTRIBUTION WIDTH SD (test code = RDW-SD) 50.5 fL 37 .0-51.0 N PLATELET COUNT (test code = PLT) 21 K/mm3 150-450 LL Results called to [id number] by MELISSA.CF2 10/29/18 0827Critical results verified and read back by Nurse? Y MEAN PLATELET VOLUME (test code = MPV) TEST NOT PERFORMED fL 6.7-11 .0 Unable to determine due to platelet abnormality , please seethe platelet morphology. NEUTROPHIL % (test code = NT%) 76.7 % 39.0-69.0 H IMMATURE GRANULOCYTE % (test code = IG%) 0.8 % 0.0-5.0 N LYMPHOCYTE % (test code = LY%) 15.1 % 25.0-55.0 L MONOCYTE % (test code = MO%) 6.8 % 0.0-10.0 N EOSINOPHIL % (test code = EO%) 0.4 % 0.0-5.0 N BASOPHIL % (test code = BA%) 0.2 % 0.0-1.0 N NUCLEATED RBC % (test code = NRBC%) 0.0 % 0-0 N NEUTROPHIL # (test code = NT#) 3.97 K/mm3 1.8-7.7 N IMMATURE GRANULOCYTE # (test code = IG#) 0.04 x10 3/uL 0-0.03 H LYMPHOCYTE # (test code = LY#) 0.78 K/mm3 1.0-5.0 L MONOCYTE # (test code = MO#) 0.35 K/mm3 0-0.8 N EOSINOPHIL # (test code = EO#) 0.02 K/mm3 0.0-0.5 N BASOPHIL # (test code = BA#) 0.01 K/mm3 0.0-0.2 N NUCLEATED RBC # (test code = NRBC#) 0.00 K/mm3 0.0-0.1 N MANUAL DIFF REQUIRED (test code = MDIFF) NO, ONLY SCAN NEEDED DIFFERENTIAL [id number] 08:27:00* Test Item Value Reference Range Interpretation Comments STAIN ACCEPTABILITY (test code = STN ACCEPTABLE) CABOT RINGS (test code = CAB) MORPHOLOGY COMMENT (test code = MOC) PLATELET ESTIMATE (test code = PLTEST) PLATELET MORPHOLOGY (test code = PLTMORPH) CBC W/AUTO [id number] 08:27:00* Test Item Value Reference Range Interpretation Comments WHITE BLOOD CELL (test code = WBC) 5.2 K/mm3 4.5-12.5 N RED BLOOD CELL (test code = RBC) 3.57 mill/mm3 3.7-5.2 L HEMOGLOBIN (test code = HGB) 9.8 gram/dL 11.5-15.5 L HEMATOCRIT (test code = HCT) 31.2 % 36.0-46.0 L MEAN CELL VOLUME (test code = MCV) 87.4 fL 80-98 N MEAN CELL HGB (test code = MCH) 27.5 picogram 27.0-33.0 N MEAN CELL HGB CONCETRATION (test code = MCHC) 31.4 gram/dL 33.0-36. 0 L RED CELL DISTRIBUTION WIDTH (test code = RDW) 16.1 % 11.6-16. 2 N RED CELL DISTRIBUTION WIDTH SD (test code = RDW-SD) 50.5 fL 37 .0-51.0 N PLATELET COUNT (test code = PLT) 21 K/mm3 150-450 LL Results called to [id number] by MELISSA.CF2 10/29/18 0827Critical results verified and read back by Nurse? Y MEAN PLATELET VOLUME (test code = MPV) TEST NOT PERFORMED fL 6.7-11 .0 Unable to determine due to platelet abnormality , please seethe platelet morphology. NEUTROPHIL % (test code = NT%) 76.7 % 39.0-69.0 H IMMATURE GRANULOCYTE % (test code = IG%) 0.8 % 0.0-5.0 N LYMPHOCYTE % (test code = LY%) 15.1 % 25.0-55.0 L MONOCYTE % (test code = MO%) 6.8 % 0.0-10.0 N EOSINOPHIL % (test code = EO%) 0.4 % 0.0-5.0 N BASOPHIL % (test code = BA%) 0.2 % 0.0-1.0 N NUCLEATED RBC % (test code = NRBC%) 0.0 % 0-0 N NEUTROPHIL # (test code = NT#) 3.97 K/mm3 1.8-7.7 N IMMATURE GRANULOCYTE # (test code = IG#) 0.04 x10 3/uL 0-0.03 H LYMPHOCYTE # (test code = LY#) 0.78 K/mm3 1.0-5.0 L MONOCYTE # (test code = MO#) 0.35 K/mm3 0-0.8 N EOSINOPHIL # (test code = EO#) 0.02 K/mm3 0.0-0.5 N BASOPHIL # (test code = BA#) 0.01 K/mm3 0.0-0.2 N NUCLEATED RBC # (test code = NRBC#) 0.00 K/mm3 0.0-0.1 N MANUAL DIFF REQUIRED (test code = MDIFF) NO, ONLY SCAN NEEDED DIFFERENTIAL [id number] 08:27:00* Test Item Value Reference Range Interpretation Comments STAIN ACCEPTABILITY (test code = STN ACCEPTABLE) CABOT RINGS (test code = CAB) MORPHOLOGY COMMENT (test code = MOC) PLATELET ESTIMATE (test code = PLTEST) PLATELET MORPHOLOGY (test code = PLTMORPH) COMPREHENSIVE METABOLIC [id number] 08:20:00* Test Item Value Reference Range Interpretation Comments SODIUM (test code = NA) 140 mmol/L 136-145 N POTASSIUM (test code = K) 3.6 mmol/L 3.5-5.1 N CHLORIDE (test code = CL) 106.0 mmol/L 98-107 N CARBON DIOXIDE (test code = CO2) 23.0 mmol/L 21-32 N ANION GAP (test code = GAP) 14.6 10-20 N GLUCOSE (test code = GLU) 58 mg/dL 74-106 L BLOOD UREA NITROGEN (test code = BUN) 27 mg/dL 7-18 H GLOMERULAR FILTRATION RATE (test code = GFR) 25 mL/min >=60 Estimated GFR by using Modified MDRD formula.Chronic kidney disease is defined as either kidney damageor GFR <60 mL/min/1.73 m2 for >3 months. CREATININE (test code = CREAT) 2.10 mg/dL 0.55-1.02 H Note change in reference range due to change in reagent. BUN/CREATININE RATIO (test code = BUN/CREA) 12.9 10-20 N TOTAL PROTEIN (test code = PROT) 5.2 gram/dL 6.4-8.2 L ALBUMIN (test code = ALB) 1.7 g/dL 3.4-5.0 L GLOBULIN (test code = GLOB) 3.5 gram/dL 2.7-4.2 N ALBUMIN/GLOBULIN RATIO (test code = A/G) 0.5 0.75-1.50 L CALCIUM (test code = CA) 8.6 mg/dL 8.5-10.1 N BILIRUBIN TOTAL (test code = BILT) 2.90 mg/dL 0.0-1.0 H SGOT/AST (test code = AST) 17 IUnit/L 15-37 N SGPT/ALT (test code = ALT) 18 IUnit/L 12-78 N ALKALINE PHOSPHATASE TOTAL (test code = ALKP) 227 IUnit/L 45-117 H Note change in reference range due to change in reagent. [id number] 08:20:00* Test Item Value Reference Range Interpretation Comments PHOSPHORUS (test code = PHOS) 4.2 mg/dL 2.5-4.9 N [id number] 08:20:00* Test Item Value Reference Range Interpretation Comments MAGNESIUM (test code = MAG) 1.8 mg/dL 1.8-2.4 N COMPREHENSIVE METABOLIC [id number] 07:50:00* Test Item Value Reference Range Interpretation Comments SODIUM (test code = NA) 140 mmol/L 136-145 N POTASSIUM (test code = K) 3.6 mmol/L 3.5-5.1 N CHLORIDE (test code = CL) 106.0 mmol/L 98-107 N CARBON DIOXIDE (test code = CO2) mmol/L 21-32 ANION GAP (test code = GAP) 10-20 GLUCOSE (test code = GLU) mg/dL 74-106 BLOOD UREA NITROGEN (test code = BUN) mg/dL 7-18 GLOMERULAR FILTRATION RATE (test code = GFR) mL/min >=60 CREATININE (test code = CREAT) mg/dL 0.55-1.02 BUN/CREATININE RATIO (test code = BUN/CREA) 10-20 TOTAL PROTEIN (test code = PROT) gram/dL 6.4-8.2 ALBUMIN (test code = ALB) g/dL 3.4-5.0 GLOBULIN (test code = GLOB) gram/dL 2.7-4.2 ALBUMIN/GLOBULIN RATIO (test code = A/G) 0.75-1.50 CALCIUM (test code = CA) mg/dL 8.5-10.1 BILIRUBIN TOTAL (test code = BILT) mg/dL 0.0-1.0 SGOT/AST (test code = AST) IUnit/L 15-37 SGPT/ALT (test code = ALT) IUnit/L 12-78 ALKALINE PHOSPHATASE TOTAL (test code = ALKP) IUnit/L 45-117 [id number] 07:50:00* Test Item Value Reference Range Interpretation Comments PHOSPHORUS (test code = PHOS) mg/dL 2.5-4.9 [id number] 07:50:00* Test Item Value Reference Range Interpretation Comments MAGNESIUM (test code = MAG) mg/dL 1.8-2.4 - XR CHEST 1 [id number] 06:26:00 FAX: Kim Wyane MD [phone] [place]: St: ADM FAX: Shirin Luong MD Name: SIOBHAN BARBOSA [facility] : 1965 Age/S: 53/F [address] [facility] Unit #: [id number] Loc: V.S23 [place] [address] Phys: Kim Dill MD Acct: [id number] Dis Date: Status: ADM IN PHONE #: [phone] Exam Date: 10/29/2018 0434 FAX #: [phone] Reason: Pneumonia EXAMS: CPT CODE: [id number] XR CHEST 1 V [id number] REASON FOR EXAM: Pneumonia EXAM ORDER DATE: 10/29/2018 6:30 AM Ordering Michelet: Kim Dill MD PROCEDURE: - XR CHEST [...] with a small left pleural effusion at 0696 Reported and signed by: Jewel Reyez M.D. CC: Kim Dill MD; Shirin Knott Technologist: RT KIANA(Shanna); Cathi Brock Trnscrd Date/Time/By: 10/29/2018 (06) : By: MengVTJace Orig Print D/T: S: 10/29/2018 (0629) PAGE 1 Signed Report [id number] 21:52:00* Test Item Value Reference Range Interpretation Comments GLUBED (test code = GLUBED) 72 mg/dL 74-106 L Performed by certified machine operator hop picker at [facility] [id number] 15:01:00* Test Item Value Reference Range Interpretation Comments GLUBED (test code = GLUBED) 89 mg/dL 74-106 N Performed by certified machine operator hop picker at [facility] [id number] 14:53:00* Test Item Value Reference Range Interpretation Comments AMMONIA (test code = AMM) 20 umol/L 11-[id number] 11:58:00* Test Item Value Reference Range Interpretation Comments FLUID SOURCE (test code = SOURCEFL) ASCITES FLD FLUID COLOR (test code = COLFL) YELLOW COLORLESS FLUID APPEARANCE (test code = APPFL) CLOUDY FLUID WBC AUTO (test code = WBCFLA) 06550 cells/uL FLUID RBC AUTO (test code = RBCFLA) 50974 cells/uL FLUID TOTAL CELLS (test code = TCFL) 50451 cells/uL >0 Fluid WBC RBC Type cells/uL cells/uL CSF (0-5) n/a Peritoneal n/a n/a Pleural n/a n/a Synovial <200 n/a CSF (0-30) n/a FLUID POLY (test code = POLYFL) 76.0 % FLUID LYMPHOCYTE (test code = LYMPHFL) 16.0 % FLUID EOSINOPHIL (test code = EOSFL) 0.0 % FLUID BASOPHIL (test code = BASOFL) 0.0 % FLUID PLASMA CELL (test code = PLAFL) 0.0 % FLUID MACROPHAGE (test code = MACFL) 8.0 % FLUID OTHER CELL (test code = OTHERFL) 0.0 % TOTAL CELLS COUNTED ON DIFF (test code = TOTCELLFL) 100 cells REVIEWED BY (test code = REVIEW) DANNY BIRD PATHOLOGIST PERITONEAL FLD [id number] 11:58:00* Test Item Value Reference Range Interpretation Comments PERITONEAL FLD GLUCOSE (test code = GLUPT) < 1 mg/dL PERITONEAL FLD TOTAL [id number] 11:58:00* Test Item Value Reference Range Interpretation Comments PERITONEAL FLD TOTAL PROTEIN (test code = PROTPT) 2.7 gram/dL CBC W/MANUAL [id number] 10:28:00* Test Item Value Reference Range Interpretation Comments WHITE BLOOD CELL (test code = WBC) 7.0 K/mm3 4.5-12.5 N RED BLOOD CELL (test code = RBC) 3.48 mill/mm3 3.7-5.2 L HEMOGLOBIN (test code = HGB) 9.4 gram/dL 11.5-15.5 L HEMATOCRIT (test code = HCT) 30.9 % 36.0-46.0 L MEAN CELL VOLUME (test code = MCV) 88.8 fL 80-98 N MEAN CELL HGB (test code = MCH) 27.0 picogram 27.0-33.0 N MEAN CELL HGB CONCETRATION (test code = MCHC) 30.4 gram/dL 33.0-36. 0 L RED CELL DISTRIBUTION WIDTH (test code = RDW) 16.3 % 11.6-16. 2 H RED CELL DISTRIBUTION WIDTH SD (test code = RDW-SD) 50.9 fL 37 .0-51.0 N PLATELET COUNT (test code = PLT) 22 K/mm3 150-450 LL Results called to [id number] by ENMA 10/28/18 0805Critical results verified and read back by Nurse? Y IMMATURE GRANULOCYTE % (test code = IG%) 1.0 % 0.0-5.0 N NUCLEATED RBC % (test code = NRBC%) 0.0 % 0-0 N NEUTROPHIL # (test code = NT#) 5.42 K/mm3 1.8-7.7 N IMMATURE GRANULOCYTE # (test code = IG#) 0.07 x10 3/uL 0-0.03 H LYMPHOCYTE # (test code = LY#) 0.90 K/mm3 1.0-5.0 L MONOCYTE # (test code = MO#) 0.49 K/mm3 0-0.8 N EOSINOPHIL # (test code = EO#) 0.10 K/mm3 0.0-0.5 N BASOPHIL # (test code = BA#) 0.01 K/mm3 0.0-0.2 N NUCLEATED RBC # (test code = NRBC#) 0.00 K/mm3 0.0-0.1 N MANUAL DIFF REQUIRED (test code = MDIFF) YES STAIN ACCEPTABILITY (test code = STN ACCEPTABLE) STAIN ACCEPTABLE TOTAL CELLS COUNTED (test code = TCC) 115 #CELLS SEGMENTED NEUTROPHILS (test code = SEG) 89.6 % 39-69 H BAND NEUTROPHIL (test code = BAND) 0 % 0-10 N LYMPHOCYTE (test code = LYMPH) 6.1 % 25-55 L REACTIVE LYMPH (test code = RELYMPH) 0 % MONOCYTE (test code = MON) 2.6 % 0-10 N EOSINOPHIL (test code = EOS) 1.7 % 0.0-5.0 N BASOPHIL (test code = BASO) 0 % 0-1.0 N METAMYELOCYTE (test code = META) 0 % 0-0 N MYELOCYTE (test code = MYELO) 0 % 0.0-0.0 N PROMYELOCYTE (test code = PROM) 0 % 0-0 N POLYCHROMASIA (test code = POLC) 1+ HYPOCHROMIA (test code = HYPO) 1+ POIKILOCYTOSIS (test code = POIK) 1+ ANISOCYTOSIS (test code = ANISO) 1+ PLATELET ESTIMATE (test code = PLTEST) DECREASED PLATELET MORPHOLOGY (test code = PLTMORPH) SIZE VARIABLE IMMATURE FORMS (test code = IMMAT) 0 % AB HEPATITIS B [id number] 08:17:00* Test Item Value Reference Range Interpretation Comments AB HEPATITIS B SURFACE (test code = HBSAB) Non Reactive () Non Reactive: Inconsistent with immunity, less than 10 mIU/mL Reactive: Consistent with immunity, greater than 9.9 mIU/mLPerformed At: [facility] [id number] [place], [place] [id number] Arturo cMcormick MD Ph:[phone] CBC W/MANUAL [id number] 08:06:00* Test Item Value Reference Range Interpretation Comments WHITE BLOOD CELL (test code = WBC) 7.0 K/mm3 4.5-12.5 N RED BLOOD CELL (test code = RBC) 3.48 mill/mm3 3.7-5.2 L HEMOGLOBIN (test code = HGB) 9.4 gram/dL 11.5-15.5 L HEMATOCRIT (test code = HCT) 30.9 % 36.0-46.0 L MEAN CELL VOLUME (test code = MCV) 88.8 fL 80-98 N MEAN CELL HGB (test code = MCH) 27.0 picogram 27.0-33.0 N MEAN CELL HGB CONCETRATION (test code = MCHC) 30.4 gram/dL 33.0-36. 0 L RED CELL DISTRIBUTION WIDTH (test code = RDW) 16.3 % 11.6-16. 2 H RED CELL DISTRIBUTION WIDTH SD (test code = RDW-SD) 50.9 fL 37 .0-51.0 N PLATELET COUNT (test code = PLT) 22 K/mm3 150-450 LL Results called to [id number] by ENMA 10/28/18 0805Critical results verified and read back by Nurse? Y IMMATURE GRANULOCYTE % (test code = IG%) 1.0 % 0.0-5.0 N NUCLEATED RBC % (test code = NRBC%) 0.0 % 0-0 N NEUTROPHIL # (test code = NT#) 5.42 K/mm3 1.8-7.7 N IMMATURE GRANULOCYTE # (test code = IG#) 0.07 x10 3/uL 0-0.03 H LYMPHOCYTE # (test code = LY#) 0.90 K/mm3 1.0-5.0 L MONOCYTE # (test code = MO#) 0.49 K/mm3 0-0.8 N EOSINOPHIL # (test code = EO#) 0.10 K/mm3 0.0-0.5 N BASOPHIL # (test code = BA#) 0.01 K/mm3 0.0-0.2 N NUCLEATED RBC # (test code = NRBC#) 0.00 K/mm3 0.0-0.1 N MANUAL DIFF REQUIRED (test code = MDIFF) YES STAIN ACCEPTABILITY (test code = STN ACCEPTABLE) TOTAL CELLS COUNTED (test code = TCC) #CELLS SEGMENTED NEUTROPHILS (test code = SEG) % 39-69 LYMPHOCYTE (test code = LYMPH) % 25-55 MONOCYTE (test code = MON) % 0-10 EOSINOPHIL (test code = EOS) % 0.0-5.0 CABOT RINGS (test code = CAB) MORPHOLOGY COMMENT (test code = MOC) PLATELET ESTIMATE (test code = PLTEST) PLATELET MORPHOLOGY (test code = PLTMORPH) CBC W/MANUAL [id number] 08:06:00* Test Item Value Reference Range Interpretation Comments WHITE BLOOD CELL (test code = WBC) 7.0 K/mm3 4.5-12.5 N RED BLOOD CELL (test code = RBC) 3.48 mill/mm3 3.7-5.2 L HEMOGLOBIN (test code = HGB) 9.4 gram/dL 11.5-15.5 L HEMATOCRIT (test code = HCT) 30.9 % 36.0-46.0 L MEAN CELL VOLUME (test code = MCV) 88.8 fL 80-98 N MEAN CELL HGB (test code = MCH) 27.0 picogram 27.0-33.0 N MEAN CELL HGB CONCETRATION (test code = MCHC) 30.4 gram/dL 33.0-36. 0 L RED CELL DISTRIBUTION WIDTH (test code = RDW) 16.3 % 11.6-16. 2 H RED CELL DISTRIBUTION WIDTH SD (test code = RDW-SD) 50.9 fL 37 .0-51.0 N PLATELET COUNT (test code = PLT) 22 K/mm3 150-450 LL Results called to [id number] by ENMA 10/28/18 0805Critical results verified and read back by Nurse? Y IMMATURE GRANULOCYTE % (test code = IG%) 1.0 % 0.0-5.0 N NUCLEATED RBC % (test code = NRBC%) 0.0 % 0-0 N NEUTROPHIL # (test code = NT#) 5.42 K/mm3 1.8-7.7 N IMMATURE GRANULOCYTE # (test code = IG#) 0.07 x10 3/uL 0-0.03 H LYMPHOCYTE # (test code = LY#) 0.90 K/mm3 1.0-5.0 L MONOCYTE # (test code = MO#) 0.49 K/mm3 0-0.8 N EOSINOPHIL # (test code = EO#) 0.10 K/mm3 0.0-0.5 N BASOPHIL # (test code = BA#) 0.01 K/mm3 0.0-0.2 N NUCLEATED RBC # (test code = NRBC#) 0.00 K/mm3 0.0-0.1 N MANUAL DIFF REQUIRED (test code = MDIFF) YES STAIN ACCEPTABILITY (test code = STN ACCEPTABLE) TOTAL CELLS COUNTED (test code = TCC) #CELLS SEGMENTED NEUTROPHILS (test code = SEG) % 39-69 LYMPHOCYTE (test code = LYMPH) % 25-55 MONOCYTE (test code = MON) % 0-10 EOSINOPHIL (test code = EOS) % 0.0-5.0 CABOT RINGS (test code = CAB) MORPHOLOGY COMMENT (test code = MOC) PLATELET ESTIMATE (test code = PLTEST) PLATELET MORPHOLOGY (test code = PLTMORPH) CBC W/MANUAL [id number] 08:06:00* Test Item Value Reference Range Interpretation Comments WHITE BLOOD CELL (test code = WBC) 7.0 K/mm3 4.5-12.5 N RED BLOOD CELL (test code = RBC) 3.48 mill/mm3 3.7-5.2 L HEMOGLOBIN (test code = HGB) 9.4 gram/dL 11.5-15.5 L HEMATOCRIT (test code = HCT) 30.9 % 36.0-46.0 L MEAN CELL VOLUME (test code = MCV) 88.8 fL 80-98 N MEAN CELL HGB (test code = MCH) 27.0 picogram 27.0-33.0 N MEAN CELL HGB CONCETRATION (test code = MCHC) 30.4 gram/dL 33.0-36. 0 L RED CELL DISTRIBUTION WIDTH (test code = RDW) 16.3 % 11.6-16. 2 H RED CELL DISTRIBUTION WIDTH SD (test code = RDW-SD) 50.9 fL 37 .0-51.0 N PLATELET COUNT (test code = PLT) 22 K/mm3 150-450 LL Results called to [id number] by ENMA 10/28/18 0805Critical results verified and read back by Nurse? Y IMMATURE GRANULOCYTE % (test code = IG%) 1.0 % 0.0-5.0 N NUCLEATED RBC % (test code = NRBC%) 0.0 % 0-0 N NEUTROPHIL # (test code = NT#) 5.42 K/mm3 1.8-7.7 N IMMATURE GRANULOCYTE # (test code = IG#) 0.07 x10 3/uL 0-0.03 H LYMPHOCYTE # (test code = LY#) 0.90 K/mm3 1.0-5.0 L MONOCYTE # (test code = MO#) 0.49 K/mm3 0-0.8 N EOSINOPHIL # (test code = EO#) 0.10 K/mm3 0.0-0.5 N BASOPHIL # (test code = BA#) 0.01 K/mm3 0.0-0.2 N NUCLEATED RBC # (test code = NRBC#) 0.00 K/mm3 0.0-0.1 N MANUAL DIFF REQUIRED (test code = MDIFF) YES STAIN ACCEPTABILITY (test code = STN ACCEPTABLE) TOTAL CELLS COUNTED (test code = TCC) #CELLS SEGMENTED NEUTROPHILS (test code = SEG) % 39-69 LYMPHOCYTE (test code = LYMPH) % 25-55 MONOCYTE (test code = MON) % 0-10 EOSINOPHIL (test code = EOS) % 0.0-5.0 MORPHOLOGY COMMENT (test code = MOC) PLATELET ESTIMATE (test code = PLTEST) PLATELET MORPHOLOGY (test code = PLTMORPH) CBC W/MANUAL [id number] 08:06:00* Test Item Value Reference Range Interpretation Comments WHITE BLOOD CELL (test code = WBC) 7.0 K/mm3 4.5-12.5 N RED BLOOD CELL (test code = RBC) 3.48 mill/mm3 3.7-5.2 L HEMOGLOBIN (test code = HGB) 9.4 gram/dL 11.5-15.5 L HEMATOCRIT (test code = HCT) 30.9 % 36.0-46.0 L MEAN CELL VOLUME (test code = MCV) 88.8 fL 80-98 N MEAN CELL HGB (test code = MCH) 27.0 picogram 27.0-33.0 N MEAN CELL HGB CONCETRATION (test code = MCHC) 30.4 gram/dL 33.0-36. 0 L RED CELL DISTRIBUTION WIDTH (test code = RDW) 16.3 % 11.6-16. 2 H RED CELL DISTRIBUTION WIDTH SD (test code = RDW-SD) 50.9 fL 37 .0-51.0 N PLATELET COUNT (test code = PLT) 22 K/mm3 150-450 LL Results called to [id number] by ENMA 10/28/18 0805Critical results verified and read back by Nurse? Y IMMATURE GRANULOCYTE % (test code = IG%) 1.0 % 0.0-5.0 N NUCLEATED RBC % (test code = NRBC%) 0.0 % 0-0 N NEUTROPHIL # (test code = NT#) 5.42 K/mm3 1.8-7.7 N IMMATURE GRANULOCYTE # (test code = IG#) 0.07 x10 3/uL 0-0.03 H LYMPHOCYTE # (test code = LY#) 0.90 K/mm3 1.0-5.0 L MONOCYTE # (test code = MO#) 0.49 K/mm3 0-0.8 N EOSINOPHIL # (test code = EO#) 0.10 K/mm3 0.0-0.5 N BASOPHIL # (test code = BA#) 0.01 K/mm3 0.0-0.2 N NUCLEATED RBC # (test code = NRBC#) 0.00 K/mm3 0.0-0.1 N MANUAL DIFF REQUIRED (test code = MDIFF) YES STAIN ACCEPTABILITY (test code = STN ACCEPTABLE) TOTAL CELLS COUNTED (test code = TCC) #CELLS SEGMENTED NEUTROPHILS (test code = SEG) % 39-69 LYMPHOCYTE (test code = LYMPH) % 25-55 MONOCYTE (test code = MON) % 0-10 MORPHOLOGY COMMENT (test code = MOC) PLATELET ESTIMATE (test code = PLTEST) PLATELET MORPHOLOGY (test code = PLTMORPH) CBC W/MANUAL [id number] 08:06:00* Test Item Value Reference Range Interpretation Comments WHITE BLOOD CELL (test code = WBC) 7.0 K/mm3 4.5-12.5 N RED BLOOD CELL (test code = RBC) 3.48 mill/mm3 3.7-5.2 L HEMOGLOBIN (test code = HGB) 9.4 gram/dL 11.5-15.5 L HEMATOCRIT (test code = HCT) 30.9 % 36.0-46.0 L MEAN CELL VOLUME (test code = MCV) 88.8 fL 80-98 N MEAN CELL HGB (test code = MCH) 27.0 picogram 27.0-33.0 N MEAN CELL HGB CONCETRATION (test code = MCHC) 30.4 gram/dL 33.0-36. 0 L RED CELL DISTRIBUTION WIDTH (test code = RDW) 16.3 % 11.6-16. 2 H RED CELL DISTRIBUTION WIDTH SD (test code = RDW-SD) 50.9 fL 37 .0-51.0 N PLATELET COUNT (test code = PLT) 22 K/mm3 150-450 LL Results called to [id number] by NIRMALAJC 10/28/18 0805Critical results verified and read back by Nurse? Y IMMATURE GRANULOCYTE % (test code = IG%) 1.0 % 0.0-5.0 N NUCLEATED RBC % (test code = NRBC%) 0.0 % 0-0 N NEUTROPHIL # (test code = NT#) 5.42 K/mm3 1.8-7.7 N IMMATURE GRANULOCYTE # (test code = IG#) 0.07 x10 3/uL 0-0.03 H LYMPHOCYTE # (test code = LY#) 0.90 K/mm3 1.0-5.0 L MONOCYTE # (test code = MO#) 0.49 K/mm3 0-0.8 N EOSINOPHIL # (test code = EO#) 0.10 K/mm3 0.0-0.5 N BASOPHIL # (test code = BA#) 0.01 K/mm3 0.0-0.2 N NUCLEATED RBC # (test code = NRBC#) 0.00 K/mm3 0.0-0.1 N MANUAL DIFF REQUIRED (test code = MDIFF) YES STAIN ACCEPTABILITY (test code = STN ACCEPTABLE) TOTAL CELLS COUNTED (test code = TCC) #CELLS SEGMENTED NEUTROPHILS (test code = SEG) % 39-69 LYMPHOCYTE (test code = LYMPH) % 25-55 MONOCYTE (test code = MON) % 0-10 EOSINOPHIL (test code = EOS) % 0.0-5.0 CABOT RINGS (test code = CAB) MORPHOLOGY COMMENT (test code = MOC) PLATELET ESTIMATE (test code = PLTEST) PLATELET MORPHOLOGY (test code = PLTMORPH) - XR CHEST 1 [id number] 07:39:00 FAX: Kim Wayne MD [phone] [place]: B St: ADM FAX: Shirin uLong MD Name: SIOBHAN BARBOSA [facility] : 1965 Age/S: 53/F [address] Unit #: [id number] Loc: V.S23 [place] [address] Phys: Kim Dill MD Acct: [id number] Dis Date: Status: ADM IN PHONE #: [phone] Exam Date: 10/28/2018 0539 FAX #: [phone] Reason: Resp Failure EXAMS: CPT CODE: [id number] XR CHEST 1 V [id number] EXAM: Chest x-ray, one view; INFORMATION: Respiratory failure, septic shock; IMPRESSION: No change; left lower lobe infiltrates; Mild cardiomegaly; small left pleural effusion; at 0739 Reported and signed by: Jameel Alvarez M.D. CC: Kim Dill MD; Shirin Knott Technologist: HARLEY Lopes Trnscrd Date/Time/By: 10/28/2018 (0739) : B y: [email or web address] Orig Print D/T: S: 10/28/2018 (0742) PAGE 1 Signed Report COMPREHENSIVE METABOLIC [id number] 07:25:00* Test Item Value Reference Range Interpretation Comments SODIUM (test code = NA) 137 mmol/L 136-145 N POTASSIUM (test code = K) 3.5 mmol/L 3.5-5.1 N CHLORIDE (test code = CL) 102.0 mmol/L 98-107 N CARBON DIOXIDE (test code = CO2) 24.0 mmol/L 21-32 N ANION GAP (test code = GAP) 14.5 10-20 N GLUCOSE (test code = GLU) 87 mg/dL 74-106 N BLOOD UREA NITROGEN (test code = BUN) 28 mg/dL 7-18 H GLOMERULAR FILTRATION RATE (test code = GFR) 26 mL/min >=60 Estimated GFR by using Modified MDRD formula.Chronic kidney disease is defined as either kidney damageor GFR <60 mL/min/1.73 m2 for >3 months. CREATININE (test code = CREAT) 2.00 mg/dL 0.55-1.02 H Note change in reference range due to change in reagent. BUN/CREATININE RATIO (test code = BUN/CREA) 14.0 10-20 N TOTAL PROTEIN (test code = PROT) 5.1 gram/dL 6.4-8.2 L ALBUMIN (test code = ALB) 1.7 g/dL 3.4-5.0 L GLOBULIN (test code = GLOB) 3.4 gram/dL 2.7-4.2 N ALBUMIN/GLOBULIN RATIO (test code = A/G) 0.5 0.75-1.50 L CALCIUM (test code = CA) 8.5 mg/dL 8.5-10.1 N BILIRUBIN TOTAL (test code = BILT) 3.40 mg/dL 0.0-1.0 H SGOT/AST (test code = AST) 18 IUnit/L 15-37 N SGPT/ALT (test code = ALT) 17 IUnit/L 12-78 N ALKALINE PHOSPHATASE TOTAL (test code = ALKP) 261 IUnit/L 45-117 H Note change in reference range due to change in reagent. [id number] 07:25:00* Test Item Value Reference Range Interpretation Comments PHOSPHORUS (test code = PHOS) 3.7 mg/dL 2.5-4.9 N [id number] 07:25:00* Test Item Value Reference Range Interpretation Comments MAGNESIUM (test code = MAG) 1.8 mg/dL 1.8-2.4 N VANCOMYCIN [id number] 07:25:00* Test Item Value Reference Range Interpretation Comments VANCOMYCIN TROUGH (test code = VANCT) 17.4 ug/mL 10-20 N COMPREHENSIVE METABOLIC [id number] 07:14:00* Test Item Value Reference Range Interpretation Comments SODIUM (test code = NA) 137 mmol/L 136-145 N POTASSIUM (test code = K) 3.5 mmol/L 3.5-5.1 N CHLORIDE (test code = CL) 102.0 mmol/L 98-107 N CARBON DIOXIDE (test code = CO2) mmol/L 21-32 ANION GAP (test code = GAP) 10-20 GLUCOSE (test code = GLU) mg/dL 74-106 BLOOD UREA NITROGEN (test code = BUN) mg/dL 7-18 GLOMERULAR FILTRATION RATE (test code = GFR) mL/min >=60 CREATININE (test code = CREAT) mg/dL 0.55-1.02 BUN/CREATININE RATIO (test code = BUN/CREA) 10-20 TOTAL PROTEIN (test code = PROT) gram/dL 6.4-8.2 ALBUMIN (test code = ALB) g/dL 3.4-5.0 GLOBULIN (test code = GLOB) gram/dL 2.7-4.2 ALBUMIN/GLOBULIN RATIO (test code = A/G) 0.75-1.50 CALCIUM (test code = CA) mg/dL 8.5-10.1 BILIRUBIN TOTAL (test code = BILT) mg/dL 0.0-1.0 SGOT/AST (test code = AST) IUnit/L 15-37 SGPT/ALT (test code = ALT) IUnit/L 12-78 ALKALINE PHOSPHATASE TOTAL (test code = ALKP) IUnit/L 45-117 [id number] 07:14:00* Test Item Value Reference Range Interpretation Comments PHOSPHORUS (test code = PHOS) mg/dL 2.5-4.9 [id number] 07:14:00* Test Item Value Reference Range Interpretation Comments MAGNESIUM (test code = MAG) mg/dL 1.8-2.4 ARTERIAL BLOOD [id number] 05:08:00* Test Item Value Reference Range Interpretation Comments ARTERIAL BLOOD GAS PH (test code = PHA) 7.46 7.35-7.45 H ARTERIAL BLOOD GAS PCO2 (test code = PCO2A) 27.4 mm Hg 35-45 L ARTERIAL BLOOD GAS PO2 (test code = PO2A) 179.2 mmHg 80-100 H BICARBONATE TOTAL HCO3 (test code = HCO3) 18.8 mmol/L 23.0-27.0 L BASE EXCESS (test code = TERRENCE) -4.0 mmol/L -3.0-5.0 LL Results called to and read back by Nelda 05:06 - 10/28/2018; by Chanel ABG O2 SATURATION (test code = SATA) 98.7 % 90.0-98.0 H ABG TYPE (test code = TYPEA) Arterial FIO2 (test code = FIO2A) 40.0 ABG VENT MODE (test code = MODEA) Assist Control ABG VENT RESP RATE (test code = RRA) 14.0 per min ABG TIDAL VOLUME (test code = TVA) 420.0 mL ABG PEEP (test code = PEEPA) 5.0 cmH2O ABG SITE (test code = SITEA) ARTERIAL LINE HEMATOCRIT (test code = HCT/ABG) 31 % 35-47 L TOTAL HGB (test code = THB) 10.5 gram/dL 11.5-15.5 L HGB O2 SAT (test code = HBOSAT) 98.1 % 94.00-98.00 H CARBOXYHEMOGLOBIN (test code = HOHGBT) 0.3 %totalHg 0.5-1.5 LL Results called to and read back by Nelda 05:06 - 10/28/2018; by Chanel METHEMOGLOBIN (test code = METHGB) 0.3 % 0.0-1.50 N O2 CONTENT (test code = O2CT) 14.9 % vol 18.0-22.0 L BODY FLUID CELL [id number] 01:49:00* Test Item Value Reference Range Interpretation Comments FLUID SOURCE (test code = SOURCEFL) ASCITES FLD FLUID COLOR (test code = COLFL) YELLOW COLORLESS FLUID APPEARANCE (test code = APPFL) CLOUDY FLUID WBC AUTO (test code = WBCFLA) 27306 cells/uL FLUID RBC AUTO (test code = RBCFLA) 97172 cells/uL FLUID TOTAL CELLS (test code = TCFL) 04526 cells/uL >0 Fluid WBC RBC Type cells/uL cells/uL CSF (0-5) n/a Peritoneal n/a n/a Pleural n/a n/a Synovial <200 n/a CSF (0-30) n/a FLUID POLY (test code = POLYFL) 76.0 % FLUID LYMPHOCYTE (test code = LYMPHFL) 16.0 % FLUID EOSINOPHIL (test code = EOSFL) 0.0 % FLUID BASOPHIL (test code = BASOFL) 0.0 % FLUID PLASMA CELL (test code = PLAFL) 0.0 % FLUID MACROPHAGE (test code = MACFL) 8.0 % FLUID OTHER CELL (test code = OTHERFL) 0.0 % TOTAL CELLS COUNTED ON DIFF (test code = TOTCELLFL) 100 cells REVIEWED BY (test code = REVIEW) PATHOLOGIST PERITONEAL FLD [id number] 01:49:00* Test Item Value Reference Range Interpretation Comments PERITONEAL FLD GLUCOSE (test code = GLUPT) < 1 mg/dL PERITONEAL FLD TOTAL [id number] 01:49:00* Test Item Value Reference Range Interpretation Comments PERITONEAL FLD TOTAL PROTEIN (test code = PROTPT) 2.7 gram/dL BODY FLUID CELL [id number] 23:01:00* Test Item Value Reference Range Interpretation Comments FLUID SOURCE (test code = SOURCEFL) ASCITES FLD FLUID COLOR (test code = COLFL) YELLOW COLORLESS FLUID APPEARANCE (test code = APPFL) CLOUDY FLUID WBC AUTO (test code = WBCFLA) 78693 cells/uL FLUID RBC AUTO (test code = RBCFLA) 28396 cells/uL FLUID TOTAL CELLS (test code = TCFL) 30855 cells/uL >0 Fluid WBC RBC Type cells/uL cells/uL CSF (0-5) n/a Peritoneal n/a n/a Pleural n/a n/a Synovial <200 n/a CSF (0-30) n/a TOTAL CELLS COUNTED ON DIFF (test code = TOTCELLFL) cells REVIEWED BY (test code = REVIEW) PATHOLOGIST PERITONEAL FLD [id number] 23:01:00* Test Item Value Reference Range Interpretation Comments PERITONEAL FLD GLUCOSE (test code = GLUPT) < 1 mg/dL PERITONEAL FLD TOTAL [id number] 23:01:00* Test Item Value Reference Range Interpretation Comments PERITONEAL FLD TOTAL PROTEIN (test code = PROTPT) 2.7 gram/dL BODY FLUID CELL [id number] 22:16:00* Test Item Value Reference Range Interpretation Comments FLUID SOURCE (test code = SOURCEFL) ASCITES FLD FLUID COLOR (test code = COLFL) YELLOW COLORLESS FLUID APPEARANCE (test code = APPFL) CLOUDY FLUID WBC AUTO (test code = WBCFLA) 77925 cells/uL FLUID RBC (test code = RBCFL) per mm3 0-50 FLUID RBC AUTO (test code = RBCFLA) 78735 cells/uL FLUID TOTAL CELLS (test code = TCFL) 90248 cells/uL >0 Fluid WBC RBC Type cells/uL cells/uL CSF (0-5) n/a Peritoneal n/a n/a Pleural n/a n/a Synovial <200 n/a CSF (0-30) n/a TOTAL CELLS COUNTED ON DIFF (test code = TOTCELLFL) cells REVIEWED BY (test code = REVIEW) PATHOLOGIST PERITONEAL FLD [id number] 22:16:00* Test Item Value Reference Range Interpretation Comments PERITONEAL FLD GLUCOSE (test code = GLUPT) < 1 mg/dL PERITONEAL FLD TOTAL [id number] 22:16:00* Test Item Value Reference Range Interpretation Comments PERITONEAL FLD TOTAL PROTEIN (test code = PROTPT) 2.7 gram/dL BODY FLUID CELL [id number] 22:12:00* Test Item Value Reference Range Interpretation Comments FLUID SOURCE (test code = SOURCEFL) ASCITES FLD FLUID COLOR (test code = COLFL) YELLOW COLORLESS FLUID APPEARANCE (test code = APPFL) CLOUDY FLUID WBC AUTO (test code = WBCFLA) 96251 cells/uL FLUID RBC (test code = RBCFL) per mm3 0-50 FLUID RBC AUTO (test code = RBCFLA) 92003 cells/uL FLUID TOTAL CELLS (test code = TCFL) 68772 cells/uL >0 Fluid WBC RBC Type cells/uL cells/uL CSF (0-5) n/a Peritoneal n/a n/a Pleural n/a n/a Synovial <200 n/a CSF (0-30) n/a TOTAL CELLS COUNTED ON DIFF (test code = TOTCELLFL) cells REVIEWED BY (test code = REVIEW) PATHOLOGIST PERITONEAL FLD [id number] 22:12:00* Test Item Value Reference Range Interpretation Comments PERITONEAL FLD GLUCOSE (test code = GLUPT) < 1 mg/dL PERITONEAL FLD TOTAL [id number] 22:12:00* Test Item Value Reference Range Interpretation Comments PERITONEAL FLD TOTAL PROTEIN (test code = PROTPT) gram/dL BODY FLUID CELL [id number] 21:49:00* Test Item Value Reference Range Interpretation Comments FLUID SOURCE (test code = SOURCEFL) ASCITES FLD FLUID COLOR (test code = COLFL) YELLOW COLORLESS FLUID APPEARANCE (test code = APPFL) CLOUDY FLUID WBC AUTO (test code = WBCFLA) 10304 cells/uL FLUID RBC (test code = RBCFL) per mm3 0-50 FLUID RBC AUTO (test code = RBCFLA) 06180 cells/uL FLUID TOTAL CELLS (test code = TCFL) 94806 cells/uL >0 Fluid WBC RBC Type cells/uL cells/uL CSF (0-5) n/a Peritoneal n/a n/a Pleural n/a n/a Synovial <200 n/a CSF (0-30) n/a TOTAL CELLS COUNTED ON DIFF (test code = TOTCELLFL) cells REVIEWED BY (test code = REVIEW) PATHOLOGIST PERITONEAL FLD [id number] 21:49:00* Test Item Value Reference Range Interpretation Comments PERITONEAL FLD GLUCOSE (test code = GLUPT) mg/dL PERITONEAL FLD TOTAL [id number] 21:49:00* Test Item Value Reference Range Interpretation Comments PERITONEAL FLD TOTAL PROTEIN (test code = PROTPT) gram/dL BODY FLUID CELL [id number] 21:48:00* Test Item Value Reference Range Interpretation Comments FLUID SOURCE (test code = SOURCEFL) ASCITES FLD FLUID COLOR (test code = COLFL) YELLOW COLORLESS FLUID APPEARANCE (test code = APPFL) CLOUDY FLUID RBC (test code = RBCFL) per mm3 0-50 FLUID TOTAL CELLS (test code = TCFL) cells/uL >0 TOTAL CELLS COUNTED ON DIFF (test code = TOTCELLFL) cells REVIEWED BY (test code = REVIEW) PATHOLOGIST PERITONEAL FLD [id number] 21:48:00* Test Item Value Reference Range Interpretation Comments PERITONEAL FLD GLUCOSE (test code = GLUPT) mg/dL PERITONEAL FLD TOTAL [id number] 21:48:00* Test Item Value Reference Range Interpretation Comments PERITONEAL FLD TOTAL PROTEIN (test code = PROTPT) gram/dL CBC W/MANUAL [id number] 14:40:00* Test Item Value Reference Range Interpretation Comments WHITE BLOOD CELL (test code = WBC) 6.6 K/mm3 4.5-12.5 N RED BLOOD CELL (test code = RBC) 2.85 mill/mm3 3.7-5.2 L HEMOGLOBIN (test code = HGB) 7.6 gram/dL 11.5-15.5 L HEMATOCRIT (test code = HCT) 25.5 % 36.0-46.0 L MEAN CELL VOLUME (test code = MCV) 89.5 fL 80-98 N MEAN CELL HGB (test code = MCH) 26.7 picogram 27.0-33.0 L MEAN CELL HGB CONCETRATION (test code = MCHC) 29.8 gram/dL 33.0-36. 0 L RED CELL DISTRIBUTION WIDTH (test code = RDW) 16.9 % 11.6-16. 2 H RED CELL DISTRIBUTION WIDTH SD (test code = RDW-SD) 53.1 fL 37 .0-51.0 H PLATELET COUNT (test code = PLT) 14 K/mm3 150-450 LL Results called to MARCELLO TOUSSAINTE8267by [email or web address] 10/27/18 0732Critical results verified and read back by Nurse? Y MEAN PLATELET VOLUME (test code = MPV) TEST NOT PERFORMED fL 6.7-11 .0 IMMATURE GRANULOCYTE % (test code = IG%) 0.9 % 0.0-5.0 N NUCLEATED RBC % (test code = NRBC%) 0.0 % 0-0 N NEUTROPHIL # (test code = NT#) 5.02 K/mm3 1.8-7.7 N IMMATURE GRANULOCYTE # (test code = IG#) 0.06 x10 3/uL 0-0.03 H LYMPHOCYTE # (test code = LY#) 1.06 K/mm3 1.0-5.0 N MONOCYTE # (test code = MO#) 0.37 K/mm3 0-0.8 N EOSINOPHIL # (test code = EO#) 0.09 K/mm3 0.0-0.5 N BASOPHIL # (test code = BA#) 0.01 K/mm3 0.0-0.2 N NUCLEATED RBC # (test code = NRBC#) 0.00 K/mm3 0.0-0.1 N MANUAL DIFF REQUIRED (test code = MDIFF) YES STAIN ACCEPTABILITY (test code = STN ACCEPTABLE) STAIN ACCEPTABLE TOTAL CELLS COUNTED (test code = TCC) 115 #CELLS SEGMENTED NEUTROPHILS (test code = SEG) 84.4 % 39-69 H BAND NEUTROPHIL (test code = BAND) 0.9 % 0-10 N LYMPHOCYTE (test code = LYMPH) 8.7 % 25-55 L REACTIVE LYMPH (test code = RELYMPH) 0 % MONOCYTE (test code = MON) 4.3 % 0-10 N EOSINOPHIL (test code = EOS) 1.7 % 0.0-5.0 N BASOPHIL (test code = BASO) 0 % 0-1.0 N METAMYELOCYTE (test code = META) 0 % 0-0 N MYELOCYTE (test code = MYELO) 0 % 0.0-0.0 N PROMYELOCYTE (test code = PROM) 0 % 0-0 N POLYCHROMASIA (test code = POLC) 1+ HYPOCHROMIA (test code = HYPO) 1+ POIKILOCYTOSIS (test code = POIK) 1+ ANISOCYTOSIS (test code = ANISO) 1+ PLATELET ESTIMATE (test code = PLTEST) DECREASED PLATELET MORPHOLOGY (test code = PLTMORPH) NORMAL IMMATURE FORMS (test code = IMMAT) 0 % HEPARIN INDUCED [id number] 10:47:00* Test Item Value Reference Range Interpretation Comments HEPARIN INDUCED THROMBOCYTOPEN (test code = HIT) NEGATIVE NEGAT STEVE CBC W/MANUAL [id number] 07:33:00* Test Item Value Reference Range Interpretation Comments WHITE BLOOD CELL (test code = WBC) 6.6 K/mm3 4.5-12.5 N RED BLOOD CELL (test code = RBC) 2.85 mill/mm3 3.7-5.2 L HEMOGLOBIN (test code = HGB) 7.6 gram/dL 11.5-15.5 L HEMATOCRIT (test code = HCT) 25.5 % 36.0-46.0 L MEAN CELL VOLUME (test code = MCV) 89.5 fL 80-98 N MEAN CELL HGB (test code = MCH) 26.7 picogram 27.0-33.0 L MEAN CELL HGB CONCETRATION (test code = MCHC) 29.8 gram/dL 33.0-36. 0 L RED CELL DISTRIBUTION WIDTH (test code = RDW) 16.9 % 11.6-16. 2 H RED CELL DISTRIBUTION WIDTH SD (test code = RDW-SD) 53.1 fL 37 .0-51.0 H PLATELET COUNT (test code = PLT) 14 K/mm3 150-450 LL Results called to MARCELLO [id number] V.LAB.OA 10/27/18 0732Critical results verified and read back by Nurse? Y MEAN PLATELET VOLUME (test code = MPV) TEST NOT PERFORMED fL 6.7-11 .0 IMMATURE GRANULOCYTE % (test code = IG%) 0.9 % 0.0-5.0 N NUCLEATED RBC % (test code = NRBC%) 0.0 % 0-0 N NEUTROPHIL # (test code = NT#) 5.02 K/mm3 1.8-7.7 N IMMATURE GRANULOCYTE # (test code = IG#) 0.06 x10 3/uL 0-0.03 H LYMPHOCYTE # (test code = LY#) 1.06 K/mm3 1.0-5.0 N MONOCYTE # (test code = MO#) 0.37 K/mm3 0-0.8 N EOSINOPHIL # (test code = EO#) 0.09 K/mm3 0.0-0.5 N BASOPHIL # (test code = BA#) 0.01 K/mm3 0.0-0.2 N NUCLEATED RBC # (test code = NRBC#) 0.00 K/mm3 0.0-0.1 N MANUAL DIFF REQUIRED (test code = MDIFF) YES STAIN ACCEPTABILITY (test code = STN ACCEPTABLE) TOTAL CELLS COUNTED (test code = TCC) #CELLS SEGMENTED NEUTROPHILS (test code = SEG) % 39-69 LYMPHOCYTE (test code = LYMPH) % 25-55 MONOCYTE (test code = MON) % 0-10 EOSINOPHIL (test code = EOS) % 0.0-5.0 CABOT RINGS (test code = CAB) MORPHOLOGY COMMENT (test code = MOC) PLATELET ESTIMATE (test code = PLTEST) PLATELET MORPHOLOGY (test code = PLTMORPH) CBC W/MANUAL [id number] 07:33:00* Test Item Value Reference Range Interpretation Comments WHITE BLOOD CELL (test code = WBC) 6.6 K/mm3 4.5-12.5 N RED BLOOD CELL (test code = RBC) 2.85 mill/mm3 3.7-5.2 L HEMOGLOBIN (test code = HGB) 7.6 gram/dL 11.5-15.5 L HEMATOCRIT (test code = HCT) 25.5 % 36.0-46.0 L MEAN CELL VOLUME (test code = MCV) 89.5 fL 80-98 N MEAN CELL HGB (test code = MCH) 26.7 picogram 27.0-33.0 L MEAN CELL HGB CONCETRATION (test code = MCHC) 29.8 gram/dL 33.0-36. 0 L RED CELL DISTRIBUTION WIDTH (test code = RDW) 16.9 % 11.6-16. 2 H RED CELL DISTRIBUTION WIDTH SD (test code = RDW-SD) 53.1 fL 37 .0-51.0 H PLATELET COUNT (test code = PLT) 14 K/mm3 150-450 LL Results called to MARCELLO HERNANDEZ8267by V.LAB.OA 10/27/18 0732Critical results verified and read back by Nurse? Y MEAN PLATELET VOLUME (test code = MPV) TEST NOT PERFORMED fL 6.7-11 .0 IMMATURE GRANULOCYTE % (test code = IG%) 0.9 % 0.0-5.0 N NUCLEATED RBC % (test code = NRBC%) 0.0 % 0-0 N NEUTROPHIL # (test code = NT#) 5.02 K/mm3 1.8-7.7 N IMMATURE GRANULOCYTE # (test code = IG#) 0.06 x10 3/uL 0-0.03 H LYMPHOCYTE # (test code = LY#) 1.06 K/mm3 1.0-5.0 N MONOCYTE # (test code = MO#) 0.37 K/mm3 0-0.8 N EOSINOPHIL # (test code = EO#) 0.09 K/mm3 0.0-0.5 N BASOPHIL # (test code = BA#) 0.01 K/mm3 0.0-0.2 N NUCLEATED RBC # (test code = NRBC#) 0.00 K/mm3 0.0-0.1 N MANUAL DIFF REQUIRED (test code = MDIFF) YES STAIN ACCEPTABILITY (test code = STN ACCEPTABLE) TOTAL CELLS COUNTED (test code = TCC) #CELLS SEGMENTED NEUTROPHILS (test code = SEG) % 39-69 LYMPHOCYTE (test code = LYMPH) % 25-55 MONOCYTE (test code = MON) % 0-10 EOSINOPHIL (test code = EOS) % 0.0-5.0 MORPHOLOGY COMMENT (test code = MOC) PLATELET ESTIMATE (test code = PLTEST) PLATELET MORPHOLOGY (test code = PLTMORPH) CBC W/MANUAL [id number] 07:33:00* Test Item Value Reference Range Interpretation Comments WHITE BLOOD CELL (test code = WBC) 6.6 K/mm3 4.5-12.5 N RED BLOOD CELL (test code = RBC) 2.85 mill/mm3 3.7-5.2 L HEMOGLOBIN (test code = HGB) 7.6 gram/dL 11.5-15.5 L HEMATOCRIT (test code = HCT) 25.5 % 36.0-46.0 L MEAN CELL VOLUME (test code = MCV) 89.5 fL 80-98 N MEAN CELL HGB (test code = MCH) 26.7 picogram 27.0-33.0 L MEAN CELL HGB CONCETRATION (test code = MCHC) 29.8 gram/dL 33.0-36. 0 L RED CELL DISTRIBUTION WIDTH (test code = RDW) 16.9 % 11.6-16. 2 H RED CELL DISTRIBUTION WIDTH SD (test code = RDW-SD) 53.1 fL 37 .0-51.0 H PLATELET COUNT (test code = PLT) 14 K/mm3 150-450 LL Results called to MARCELLO [id number] [employer]. 10/27/18 0732Critical results verified and read back by Nurse? Y MEAN PLATELET VOLUME (test code = MPV) TEST NOT PERFORMED fL 6.7-11 .0 IMMATURE GRANULOCYTE % (test code = IG%) 0.9 % 0.0-5.0 N NUCLEATED RBC % (test code = NRBC%) 0.0 % 0-0 N NEUTROPHIL # (test code = NT#) 5.02 K/mm3 1.8-7.7 N IMMATURE GRANULOCYTE # (test code = IG#) 0.06 x10 3/uL 0-0.03 H LYMPHOCYTE # (test code = LY#) 1.06 K/mm3 1.0-5.0 N MONOCYTE # (test code = MO#) 0.37 K/mm3 0-0.8 N EOSINOPHIL # (test code = EO#) 0.09 K/mm3 0.0-0.5 N BASOPHIL # (test code = BA#) 0.01 K/mm3 0.0-0.2 N NUCLEATED RBC # (test code = NRBC#) 0.00 K/mm3 0.0-0.1 N MANUAL DIFF REQUIRED (test code = MDIFF) YES STAIN ACCEPTABILITY (test code = STN ACCEPTABLE) TOTAL CELLS COUNTED (test code = TCC) #CELLS SEGMENTED NEUTROPHILS (test code = SEG) % 39-69 LYMPHOCYTE (test code = LYMPH) % 25-55 MONOCYTE (test code = MON) % 0-10 MORPHOLOGY COMMENT (test code = MOC) PLATELET ESTIMATE (test code = PLTEST) PLATELET MORPHOLOGY (test code = PLTMORPH) CBC W/MANUAL [id number] 07:32:00* Test Item Value Reference Range Interpretation Comments WHITE BLOOD CELL (test code = WBC) 6.6 K/mm3 4.5-12.5 N RED BLOOD CELL (test code = RBC) 2.85 mill/mm3 3.7-5.2 L HEMOGLOBIN (test code = HGB) 7.6 gram/dL 11.5-15.5 L HEMATOCRIT (test code = HCT) 25.5 % 36.0-46.0 L MEAN CELL VOLUME (test code = MCV) 89.5 fL 80-98 N MEAN CELL HGB (test code = MCH) 26.7 picogram 27.0-33.0 L MEAN CELL HGB CONCETRATION (test code = MCHC) 29.8 gram/dL 33.0-36. 0 L RED CELL DISTRIBUTION WIDTH (test code = RDW) 16.9 % 11.6-16. 2 H RED CELL DISTRIBUTION WIDTH SD (test code = RDW-SD) 53.1 fL 37 .0-51.0 H PLATELET COUNT (test code = PLT) 14 K/mm3 150-450 LL Results called to MARCELLO [id number] [facility]. 10/27/18 0732Critical results verified and read back by Nurse? Y MEAN PLATELET VOLUME (test code = MPV) TEST NOT PERFORMED fL 6.7-11 .0 IMMATURE GRANULOCYTE % (test code = IG%) 0.9 % 0.0-5.0 N NUCLEATED RBC % (test code = NRBC%) 0.0 % 0-0 N NEUTROPHIL # (test code = NT#) 5.02 K/mm3 1.8-7.7 N IMMATURE GRANULOCYTE # (test code = IG#) 0.06 x10 3/uL 0-0.03 H LYMPHOCYTE # (test code = LY#) 1.06 K/mm3 1.0-5.0 N MONOCYTE # (test code = MO#) 0.37 K/mm3 0-0.8 N EOSINOPHIL # (test code = EO#) 0.09 K/mm3 0.0-0.5 N BASOPHIL # (test code = BA#) 0.01 K/mm3 0.0-0.2 N NUCLEATED RBC # (test code = NRBC#) 0.00 K/mm3 0.0-0.1 N MANUAL DIFF REQUIRED (test code = MDIFF) YES STAIN ACCEPTABILITY (test code = STN ACCEPTABLE) TOTAL CELLS COUNTED (test code = TCC) #CELLS SEGMENTED NEUTROPHILS (test code = SEG) % 39-69 LYMPHOCYTE (test code = LYMPH) % 25-55 MONOCYTE (test code = MON) % 0-10 EOSINOPHIL (test code = EOS) % 0.0-5.0 CABOT RINGS (test code = CAB) MORPHOLOGY COMMENT (test code = MOC) PLATELET ESTIMATE (test code = PLTEST) PLATELET MORPHOLOGY (test code = PLTMORPH) CBC W/MANUAL [id number] 07:32:00* Test Item Value Reference Range Interpretation Comments WHITE BLOOD CELL (test code = WBC) 6.6 K/mm3 4.5-12.5 N RED BLOOD CELL (test code = RBC) 2.85 mill/mm3 3.7-5.2 L HEMOGLOBIN (test code = HGB) 7.6 gram/dL 11.5-15.5 L HEMATOCRIT (test code = HCT) 25.5 % 36.0-46.0 L MEAN CELL VOLUME (test code = MCV) 89.5 fL 80-98 N MEAN CELL HGB (test code = MCH) 26.7 picogram 27.0-33.0 L MEAN CELL HGB CONCETRATION (test code = MCHC) 29.8 gram/dL 33.0-36. 0 L RED CELL DISTRIBUTION WIDTH (test code = RDW) 16.9 % 11.6-16. 2 H RED CELL DISTRIBUTION WIDTH SD (test code = RDW-SD) 53.1 fL 37 .0-51.0 H PLATELET COUNT (test code = PLT) 14 K/mm3 150-450 LL Results called to MARCELLO [id number] [facility] 10/27/18 0732Critical results verified and read back by Nurse? Y MEAN PLATELET VOLUME (test code = MPV) TEST NOT PERFORMED fL 6.7-11 .0 IMMATURE GRANULOCYTE % (test code = IG%) 0.9 % 0.0-5.0 N NUCLEATED RBC % (test code = NRBC%) 0.0 % 0-0 N NEUTROPHIL # (test code = NT#) 5.02 K/mm3 1.8-7.7 N IMMATURE GRANULOCYTE # (test code = IG#) 0.06 x10 3/uL 0-0.03 H LYMPHOCYTE # (test code = LY#) 1.06 K/mm3 1.0-5.0 N MONOCYTE # (test code = MO#) 0.37 K/mm3 0-0.8 N EOSINOPHIL # (test code = EO#) 0.09 K/mm3 0.0-0.5 N BASOPHIL # (test code = BA#) 0.01 K/mm3 0.0-0.2 N NUCLEATED RBC # (test code = NRBC#) 0.00 K/mm3 0.0-0.1 N MANUAL DIFF REQUIRED (test code = MDIFF) YES STAIN ACCEPTABILITY (test code = STN ACCEPTABLE) TOTAL CELLS COUNTED (test code = TCC) #CELLS SEGMENTED NEUTROPHILS (test code = SEG) % 39-69 LYMPHOCYTE (test code = LYMPH) % 25-55 MONOCYTE (test code = MON) % 0-10 EOSINOPHIL (test code = EOS) % 0.0-5.0 CABOT RINGS (test code = CAB) MORPHOLOGY COMMENT (test code = MOC) PLATELET ESTIMATE (test code = PLTEST) PLATELET MORPHOLOGY (test code = PLTMORPH) COMPREHENSIVE METABOLIC [id number] 07:31:00* Test Item Value Reference Range Interpretation Comments SODIUM (test code = NA) 136 mmol/L 136-145 N POTASSIUM (test code = K) 3.8 mmol/L 3.5-5.1 N CHLORIDE (test code = CL) 102.0 mmol/L 98-107 N CARBON DIOXIDE (test code = CO2) 25.0 mmol/L 21-32 N ANION GAP (test code = GAP) 12.8 10-20 N GLUCOSE (test code = GLU) 125 mg/dL 74-106 H BLOOD UREA NITROGEN (test code = BUN) 28 mg/dL 7-18 H GLOMERULAR FILTRATION RATE (test code = GFR) 26 mL/min >=60 Estimated GFR by using Modified MDRD formula.Chronic kidney disease is defined as either kidney damageor GFR <60 mL/min/1.73 m2 for >3 months. CREATININE (test code = CREAT) 2.00 mg/dL 0.55-1.02 H Note change in reference range due to change in reagent. BUN/CREATININE RATIO (test code = BUN/CREA) 14.0 10-20 N TOTAL PROTEIN (test code = PROT) 5.0 gram/dL 6.4-8.2 L ALBUMIN (test code = ALB) 1.8 g/dL 3.4-5.0 L GLOBULIN (test code = GLOB) 3.2 gram/dL 2.7-4.2 N ALBUMIN/GLOBULIN RATIO (test code = A/G) 0.6 0.75-1.50 L CALCIUM (test code = CA) 8.1 mg/dL 8.5-10.1 L BILIRUBIN TOTAL (test code = BILT) 4.40 mg/dL 0.0-1.0 H SGOT/AST (test code = AST) 17 IUnit/L 15-37 N SGPT/ALT (test code = ALT) 19 IUnit/L 12-78 N ALKALINE PHOSPHATASE TOTAL (test code = ALKP) 259 IUnit/L 45-117 H Note change in reference range due to change in reagent. [id number] 07:31:00* Test Item Value Reference Range Interpretation Comments PHOSPHORUS (test code = PHOS) 3.5 mg/dL 2.5-4.9 N [id number] 07:31:00* Test Item Value Reference Range Interpretation Comments MAGNESIUM (test code = MAG) 1.9 mg/dL 1.8-2.4 N COMPREHENSIVE METABOLIC [id number] 07:28:00* Test Item Value Reference Range Interpretation Comments SODIUM (test code = NA) 136 mmol/L 136-145 N POTASSIUM (test code = K) 3.8 mmol/L 3.5-5.1 N CHLORIDE (test code = CL) 102.0 mmol/L 98-107 N CARBON DIOXIDE (test code = CO2) mmol/L 21-32 ANION GAP (test code = GAP) 10-20 GLUCOSE (test code = GLU) mg/dL 74-106 BLOOD UREA NITROGEN (test code = BUN) mg/dL 7-18 GLOMERULAR FILTRATION RATE (test code = GFR) mL/min >=60 CREATININE (test code = CREAT) mg/dL 0.55-1.02 BUN/CREATININE RATIO (test code = BUN/CREA) 10-20 TOTAL PROTEIN (test code = PROT) gram/dL 6.4-8.2 ALBUMIN (test code = ALB) g/dL 3.4-5.0 GLOBULIN (test code = GLOB) gram/dL 2.7-4.2 ALBUMIN/GLOBULIN RATIO (test code = A/G) 0.75-1.50 CALCIUM (test code = CA) mg/dL 8.5-10.1 BILIRUBIN TOTAL (test code = BILT) mg/dL 0.0-1.0 SGOT/AST (test code = AST) IUnit/L 15-37 SGPT/ALT (test code = ALT) IUnit/L 12-78 ALKALINE PHOSPHATASE TOTAL (test code = ALKP) IUnit/L 45-117 [id number] 07:28:00* Test Item Value Reference Range Interpretation Comments PHOSPHORUS (test code = PHOS) mg/dL 2.5-4.9 [id number] 07:28:00* Test Item Value Reference Range Interpretation Comments MAGNESIUM (test code = MAG) mg/dL 1.8-2.4 - XR CHEST 1 [id number] 07:23:00 FAX: Sarita Macedo MD [place]: St: ADM FAX: Shirin Luong MD Name: SIOBHAN BARBOSA [facility] : 1965 Age/S: 53/F [address] [facility] Unit #: [id number] Loc: V.[address] [place] [address] Phys: Sarita Macedo MD Acct: [id number] Dis Date: Status: ADM IN PHONE #: [phone] Exam Date: 10/27/2018 05 FAX #: [phone] Reason: intubated/vented EXAMS: CPT CODE: [id number] XR CHEST 1 V 39704 EXAM: Chest x-ray, one view; INFORMATION: Septic shock; INFORMATION: No change; left lower lobe infiltrate. Small left pleural effusion. at 0723 Reported and signed by: Jameel Alvarez M.D. CC: Sarita Macedo MD; Shirin Knott Technologist: HARLEY TURNER [facility] ate/Time/By: 10/27/2018 (0723) : By: [email or web address] Orig Print D/T: S: 10/17 (0785) PAGE 1 Signed Repor t ARTERIAL BLOOD [id number] 05:22:00* Test Item Value Reference Range Interpretation Comments ARTERIAL BLOOD GAS PH (test code = PHA) 7.45 7.35-7.45 N ARTERIAL BLOOD GAS PCO2 (test code = PCO2A) 33.7 mm Hg 35-45 L ARTERIAL BLOOD GAS PO2 (test code = PO2A) 175.3 mmHg 80-100 H BICARBONATE TOTAL HCO3 (test code = HCO3) 22.8 mmol/L 23.0-27.0 L BASE EXCESS (test code = TERRENCE) -0.9 mmol/L -3.0-5.0 N ABG O2 SATURATION (test code = SATA) 98.6 % 90.0-98.0 H ABG TYPE (test code = TYPEA) Arterial FIO2 (test code = FIO2A) 40.0 ABG VENT MODE (test code = MODEA) Assist Control ABG VENT RESP RATE (test code = RRA) 12.0 per min ABG TIDAL VOLUME (test code = TVA) 420.0 mL ABG PEEP (test code = PEEPA) 5.0 cmH2O ABG SITE (test code = SITEA) ARTERIAL LINE HEMATOCRIT (test code = HCT/ABG) 26 % 35-47 L TOTAL HGB (test code = THB) 9.0 gram/dL 11.5-15.5 L HGB O2 SAT (test code = HBOSAT) 97.7 % 94.00-98.00 N CARBOXYHEMOGLOBIN (test code = HOHGBT) 0.3 %totalHg 0.5-1.5 LL Results called to and read back by Trina 04:55 - 10/27/2018; by Chanel METHEMOGLOBIN (test code = METHGB) 0.6 % 0.0-1.50 N O2 CONTENT (test code = O2CT) 12.8 % vol 18.0-22.0 L AG HEPAT B [id number] 22:09:00* Test Item Value Reference Range Interpretation Comments AG HEPAT B SURF (test code = HBSAG) Nonreactive Index Nonreactive - CT HEAD/BRAIN W/O [id number] 14:02:00 Name: SIOBHAN BARBOSA [facility] : 1965 Age/S: 53 / F Jana [facility] Unit #: [id number] Loc: [place] [address] Phys: Norma Akbar MD Acct: [id number] Dis Date: Status: ADM IN PHONE #: [phone] Exam Date: 10/26/2018 1341 FAX #: [phone] Reason: AMS EXAMS: CPT CODE: [id number] CT HEAD/BRAIN W/O CONT 80231 HISTORY: Confusion and septic shock. COMPARISON: None [...] Krystian Johnson M.D. CC: Norma Akbar MD; Shirin Knott Techno logist:Vee Contreras,RT(R),CT CTDI: DLP: Trnscb Date/Time : 10/26/2018 (1402) [email or web address] Orig Print D/T: S: 10/27/19 19 (6337) CTDI: DLP: PAGE 1 Obi d Report [id number] 13:20:00* Test Item Value Reference Range Interpretation Comments GLUBED (test code = GLUBED) 141 mg/dL 74-106 H Performed by certified machine operator hop picker at [facility] [id number] 13:13:00* Test Item Value Reference Range Interpretation Comments GLUBED (test code = GLUBED) 154 mg/dL 74-106 H Performed by certified machine operator hop picker at [facility]) - XR CHEST 1 [id number] 07:50:00 FAX: Sarita Macedo MD [place]: St: [facility] FAX: Shirin Luong MD Name: SIOBHAN BARBOSA [facility] : 1965 Age/S: 53/F [address] [facility] Unit #: [id number] Loc: [address] [address] Phys: Sarita Macedo MD Acct: [id number] Dis Date: Status: ADM IN PHONE #: [phone] Exam Date: 10/26/2018 0539 FAX #: [phone] Reason: intubated/vented EXAMS: CPT CODE: [id number] XR CHEST 1 V 52821 EXAM: Chest x-ray, one view; INFORMATION: Left lower lobe pneumonia; IMPRESSION: Persistent and enlarging left lower lobe infiltrate. The heart is borderline in size. at 0750 Reported and signed by: Jameel Alvarez M.D. CC: Sarita Macedo MD; Shirin Knott Technologist: HARLEY Obando rd Trnscrd Date/Time/By: 10/26/2018 (075) : By: Caitie PHILIP Orig Print D/T: S: 10/26/2018 (0757) PAGE 1 Signed Report COMPREHENSIVE METABOLIC [id number] 07:19:00* Test Item Value Reference Range Interpretation Comments SODIUM (test code = NA) 135 mmol/L 136-145 L POTASSIUM (test code = K) 4.1 mmol/L 3.5-5.1 N CHLORIDE (test code = CL) 103.0 mmol/L 98-107 N CARBON DIOXIDE (test code = CO2) 23.0 mmol/L 21-32 N ANION GAP (test code = GAP) 13.1 10-20 N GLUCOSE (test code = GLU) 113 mg/dL 74-106 H BLOOD UREA NITROGEN (test code = BUN) 34 mg/dL 7-18 H GLOMERULAR FILTRATION RATE (test code = GFR) 23 mL/min >=60 Estimated GFR by using Modified MDRD formula.Chronic kidney disease is defined as either kidney damageor GFR <60 mL/min/1.73 m2 for >3 months. CREATININE (test code = CREAT) 2.20 mg/dL 0.55-1.02 H Note change in reference range due to change in reagent. BUN/CREATININE RATIO (test code = BUN/CREA) 15.5 10-20 N TOTAL PROTEIN (test code = PROT) 4.6 gram/dL 6.4-8.2 L ALBUMIN (test code = ALB) 1.2 g/dL 3.4-5.0 L GLOBULIN (test code = GLOB) 3.4 gram/dL 2.7-4.2 N ALBUMIN/GLOBULIN RATIO (test code = A/G) 0.4 0.75-1.50 L CALCIUM (test code = CA) 7.6 mg/dL 8.5-10.1 L BILIRUBIN TOTAL (test code = BILT) 3.80 mg/dL 0.0-1.0 H SGOT/AST (test code = AST) 22 IUnit/L 15-37 N SGPT/ALT (test code = ALT) 21 IUnit/L 12-78 N ALKALINE PHOSPHATASE TOTAL (test code = ALKP) 272 IUnit/L 45-117 H Note change in reference range due to change in reagent. [id number] 07:19:00* Test Item Value Reference Range Interpretation Comments PHOSPHORUS (test code = PHOS) 3.5 mg/dL 2.5-4.9 N [id number] 07:19:00* Test Item Value Reference Range Interpretation Comments MAGNESIUM (test code = MAG) 1.9 mg/dL 1.8-2.4 N COMPREHENSIVE METABOLIC [id number] 07:07:00* Test Item Value Reference Range Interpretation Comments SODIUM (test code = NA) 135 mmol/L 136-145 L POTASSIUM (test code = K) 4.1 mmol/L 3.5-5.1 N CHLORIDE (test code = CL) 103.0 mmol/L 98-107 N CARBON DIOXIDE (test code = CO2) mmol/L 21-32 ANION GAP (test code = GAP) 10-20 GLUCOSE (test code = GLU) mg/dL 74-106 BLOOD UREA NITROGEN (test code = BUN) mg/dL 7-18 GLOMERULAR FILTRATION RATE (test code = GFR) mL/min >=60 CREATININE (test code = CREAT) mg/dL 0.55-1.02 BUN/CREATININE RATIO (test code = BUN/CREA) 10-20 TOTAL PROTEIN (test code = PROT) gram/dL 6.4-8.2 ALBUMIN (test code = ALB) g/dL 3.4-5.0 GLOBULIN (test code = GLOB) gram/dL 2.7-4.2 ALBUMIN/GLOBULIN RATIO (test code = A/G) 0.75-1.50 CALCIUM (test code = CA) mg/dL 8.5-10.1 BILIRUBIN TOTAL (test code = BILT) mg/dL 0.0-1.0 SGOT/AST (test code = AST) IUnit/L 15-37 SGPT/ALT (test code = ALT) IUnit/L 12-78 ALKALINE PHOSPHATASE TOTAL (test code = ALKP) IUnit/L 45-117 [id number] 07:07:00* Test Item Value Reference Range Interpretation Comments PHOSPHORUS (test code = PHOS) mg/dL 2.5-4.9 [id number] 07:07:00* Test Item Value Reference Range Interpretation Comments MAGNESIUM (test code = MAG) mg/dL 1.8-2.4 CBC W/AUTO [id number] 06:54:00* Test Item Value Reference Range Interpretation Comments WHITE BLOOD CELL (test code = WBC) 7.2 K/mm3 4.5-12.5 N RED BLOOD CELL (test code = RBC) 3.18 mill/mm3 3.7-5.2 L HEMOGLOBIN (test code = HGB) 8.3 gram/dL 11.5-15.5 L HEMATOCRIT (test code = HCT) 28.1 % 36.0-46.0 L MEAN CELL VOLUME (test code = MCV) 88.4 fL 80-98 N MEAN CELL HGB (test code = MCH) 26.1 picogram 27.0-33.0 L MEAN CELL HGB CONCETRATION (test code = MCHC) 29.5 gram/dL 33.0-36. 0 L RED CELL DISTRIBUTION WIDTH (test code = RDW) 17.2 % 11.6-16. 2 H RED CELL DISTRIBUTION WIDTH SD (test code = RDW-SD) 53.0 fL 37 .0-51.0 H PLATELET COUNT (test code = PLT) 25 K/mm3 150-450 LL Results called to [id number] by ANTOINETTE 10/26/18 0654Critical results verified and read back by Nurse? Y MEAN PLATELET VOLUME (test code = MPV) TEST NOT PERFORMED fL 6.7-11 .0 NEUTROPHIL % (test code = NT%) 69.3 % 39.0-69.0 H IMMATURE GRANULOCYTE % (test code = IG%) 1.3 % 0.0-5.0 N LYMPHOCYTE % (test code = LY%) 22.4 % 25.0-55.0 L MONOCYTE % (test code = MO%) 5.1 % 0.0-10.0 N EOSINOPHIL % (test code = EO%) 1.9 % 0.0-5.0 N BASOPHIL % (test code = BA%) 0.0 % 0.0-1.0 N NUCLEATED RBC % (test code = NRBC%) 0.0 % 0-0 N NEUTROPHIL # (test code = NT#) 4.99 K/mm3 1.8-7.7 N IMMATURE GRANULOCYTE # (test code = IG#) 0.09 x10 3/uL 0-0.03 H LYMPHOCYTE # (test code = LY#) 1.61 K/mm3 1.0-5.0 N MONOCYTE # (test code = MO#) 0.37 K/mm3 0-0.8 N EOSINOPHIL # (test code = EO#) 0.14 K/mm3 0.0-0.5 N BASOPHIL # (test code = BA#) 0.00 K/mm3 0.0-0.2 N NUCLEATED RBC # (test code = NRBC#) 0.00 K/mm3 0.0-0.1 N MANUAL DIFF REQUIRED (test code = MDIFF) NO ARTERIAL BLOOD [id number] 05:23:00* Test Item Value Reference Range Interpretation Comments ARTERIAL BLOOD GAS PH (test code = PHA) 7.46 7.35-7.45 H ARTERIAL BLOOD GAS PCO2 (test code = PCO2A) 34.2 mm Hg 35-45 L ARTERIAL BLOOD GAS PO2 (test code = PO2A) 131.9 mmHg 80-100 H BICARBONATE TOTAL HCO3 (test code = HCO3) 23.6 mmol/L 23.0-27.0 N BASE EXCESS (test code = TERRENCE) -0.1 mmol/L -3.0-5.0 N ABG O2 SATURATION (test code = SATA) 98.1 % 90.0-98.0 H ABG TYPE (test code = TYPEA) Arterial FIO2 (test code = FIO2A) 40.0 ABG VENT MODE (test code = MODEA) Assist Control ABG VENT RESP RATE (test code = RRA) 14.0 per min ABG TIDAL VOLUME (test code = TVA) 420.0 mL ABG PEEP (test code = PEEPA) 5.0 cmH2O ABG SITE (test code = SITEA) ARTERIAL LINE HEMATOCRIT (test code = HCT/ABG) 27 % 35-47 L TOTAL HGB (test code = THB) 9.3 gram/dL 11.5-15.5 L HGB O2 SAT (test code = HBOSAT) 97.6 % 94.00-98.00 N CARBOXYHEMOGLOBIN (test code = HOHGBT) 0.1 %totalHg 0.5-1.5 LL Results called to and read back by Trina 05:21 - 10/26/2018; by Chanel METHEMOGLOBIN (test code = METHGB) 0.4 % 0.0-1.50 N O2 CONTENT (test code = O2CT) 13.0 % vol 18.0-22.0 L LACTIC [id number] 22:18:00* Test Item Value Reference Range Interpretation Comments LACTIC ACID (test code = LACT) 1.9 mmol/L 0.4-1.9 N LACTIC [id number] 15:44:00* Test Item Value Reference Range Interpretation Comments LACTIC ACID (test code = LACT) 2.8 mmol/L 0.4-1.9 HH Results called to [id number] by V.[email or web address].[email or web address] 10/25/18 1544Critical results verified and read back by Nurse? Y LACTIC [id number] 12:25:00* Test Item Value Reference Range Interpretation Comments LACTIC ACID (test code = LACT) 2.9 mmol/L 0.4-1.9 HH Results called to [id number] by V.LAB.DRP 10/25/18 1224Critical results verified and read back by Nurse? Y CBC W/AUTO [id number] 09:48:00* Test Item Value Reference Range Interpretation Comments WHITE BLOOD CELL (test code = WBC) 10.8 K/mm3 4.5-12.5 N RED BLOOD CELL (test code = RBC) 3.39 mill/mm3 3.7-5.2 L HEMOGLOBIN (test code = HGB) 9.2 gram/dL 11.5-15.5 L HEMATOCRIT (test code = HCT) 29.8 % 36.0-46.0 L MEAN CELL VOLUME (test code = MCV) 87.9 fL 80-98 N MEAN CELL HGB (test code = MCH) 27.1 picogram 27.0-33.0 N MEAN CELL HGB CONCETRATION (test code = MCHC) 30.9 gram/dL 33.0-36. 0 L RED CELL DISTRIBUTION WIDTH (test code = RDW) 17.6 % 11.6-16. 2 H RED CELL DISTRIBUTION WIDTH SD (test code = RDW-SD) 54.2 fL 37 .0-51.0 H PLATELET COUNT (test code = PLT) 56 K/mm3 150-450 L MEAN PLATELET VOLUME (test code = MPV) TEST NOT PERFORMED fL 6.7-11 .0 NEUTROPHIL % (test code = NT%) 75.3 % 39.0-69.0 H IMMATURE GRANULOCYTE % (test code = IG%) 1.3 % 0.0-5.0 N LYMPHOCYTE % (test code = LY%) 16.3 % 25.0-55.0 L MONOCYTE % (test code = MO%) 3.6 % 0.0-10.0 N EOSINOPHIL % (test code = EO%) 3.4 % 0.0-5.0 N BASOPHIL % (test code = BA%) 0.1 % 0.0-1.0 N NUCLEATED RBC % (test code = NRBC%) 0.0 % 0-0 N NEUTROPHIL # (test code = NT#) 8.10 K/mm3 1.8-7.7 H IMMATURE GRANULOCYTE # (test code = IG#) 0.14 x10 3/uL 0-0.03 H LYMPHOCYTE # (test code = LY#) 1.76 K/mm3 1.0-5.0 N MONOCYTE # (test code = MO#) 0.39 K/mm3 0-0.8 N EOSINOPHIL # (test code = EO#) 0.37 K/mm3 0.0-0.5 N BASOPHIL # (test code = BA#) 0.01 K/mm3 0.0-0.2 N NUCLEATED RBC # (test code = NRBC#) 0.00 K/mm3 0.0-0.1 N MANUAL DIFF REQUIRED (test code = MDIFF) NO, ONLY SCAN NEEDED DIFFERENTIAL [id number] 09:48:00* Test Item Value Reference Range Interpretation Comments STAIN ACCEPTABILITY (test code = STN ACCEPTABLE) STAIN ACCEPTABLE ANISOCYTOSIS (test code = ANISO) 2+ MACROCYTOSIS (test code = MACR) 2+ PLATELET ESTIMATE (test code = PLTEST) DECREASED PLATELET MORPHOLOGY (test code = PLTMORPH) NORMAL COMPREHENSIVE METABOLIC [id number] 07:48:00* Test Item Value Reference Range Interpretation Comments SODIUM (test code = NA) 135 mmol/L 136-145 L RESU LT VERIFIED BY REPEAT ANALYSIS POTASSIUM (test code = K) 4.1 mmol/L 3.5-5.1 N CHLORIDE (test code = CL) 102.0 mmol/L 98-107 N CARBON DIOXIDE (test code = CO2) 21.0 mmol/L 21-32 N ANION GAP (test code = GAP) 16.1 10-20 N GLUCOSE (test code = GLU) 138 mg/dL 74-106 H BLOOD UREA NITROGEN (test code = BUN) 32 mg/dL 7-18 H GLOMERULAR FILTRATION RATE (test code = GFR) 26 mL/min >=60 Estimated GFR by using Modified MDRD formula.Chronic kidney disease is defined as either kidney damageor GFR <60 mL/min/1.73 m2 for >3 months. CREATININE (test code = CREAT) 2.00 mg/dL 0.55-1.02 H Note change in reference range due to change in reagent. BUN/CREATININE RATIO (test code = BUN/CREA) 16.0 10-20 N TOTAL PROTEIN (test code = PROT) 4.9 gram/dL 6.4-8.2 L ALBUMIN (test code = ALB) 1.4 g/dL 3.4-5.0 L GLOBULIN (test code = GLOB) 3.5 gram/dL 2.7-4.2 N ALBUMIN/GLOBULIN RATIO (test code = A/G) 0.4 0.75-1.50 L CALCIUM (test code = CA) 7.8 mg/dL 8.5-10.1 L BILIRUBIN TOTAL (test code = BILT) 2.40 mg/dL 0.0-1.0 H SGOT/AST (test code = AST) 25 IUnit/L 15-37 N SGPT/ALT (test code = ALT) 26 IUnit/L 12-78 N ALKALINE PHOSPHATASE TOTAL (test code = ALKP) 293 IUnit/L 45-117 H Note change in reference range due to change in reagent. [id number] 07:48:00* Test Item Value Reference Range Interpretation Comments PHOSPHORUS (test code = PHOS) 2.8 mg/dL 2.5-4.9 N [id number] 07:48:00* Test Item Value Reference Range Interpretation Comments MAGNESIUM (test code = MAG) 1.6 mg/dL 1.8-2.4 L - XR CHEST 1 [id number] 07:29:00 FAX: Sarita Macedo MD [place]: St: [facility] FAX: Shirin Luong MD Name: SIOBHAN BARBOSA [facility] : 1965 Age/S: 53/F [address] [facility] Unit #: [id number] [address]: [address] [address] Phys: Sarita Macedo MD Acct: [id number] Dis Date: Status: ADM IN PHONE #: [phone] Exam Date: 10/25/2018 0539 FAX #: [phone] Reason: intubated/vented EXAMS: CPT CODE: [id number] XR CHEST 1 V 90642 EXAM: Chest x-ray, one view; INFORMATION: Septic shock; pneumonia; IMPRESSION: 1. Persistent dense left lower lobe infiltrate. 2. The endotracheal tube has been partially withdrawn. It is well-positioned with its tip 2.5 cm up above the dave. 3. No further change compared with yesterday's study. Electronically Signed by Michelet Alvarez on 0 10/25/2018 at 0701 Reported and signed by: Pj Alvarez M.D. CC: Sarita Macedo MD; Shirin Knott Technologist: HARLEY Lopes Trnscrd Date/Time/By: 10/25/2018 (728) : By: MengGRW Orig Print D/T: S: 10/25/2018 (0772) PAGE 1 Signed Report CBC W/AUTO DIFF 2018-10-25 07:09:00* Test Item Value Reference Range Interpretation Comments WHITE BLOOD CELL (test code = WBC) 10.8 K/mm3 4.5-12.5 N RED BLOOD CELL (test code = RBC) 3.39 mill/mm3 3.7-5.2 L HEMOGLOBIN (test code = HGB) 9.2 gram/dL 11.5-15.5 L HEMATOCRIT (test code = HCT) 29.8 % 36.0-46.0 L MEAN CELL VOLUME (test code = MCV) 87.9 fL 80-98 N MEAN CELL HGB (test code = MCH) 27.1 picogram 27.0-33.0 N MEAN CELL HGB CONCETRATION (test code = MCHC) 30.9 gram/dL 33.0-36. 0 L RED CELL DISTRIBUTION WIDTH (test code = RDW) 17.6 % 11.6-16. 2 H RED CELL DISTRIBUTION WIDTH SD (test code = RDW-SD) 54.2 fL 37 .0-51.0 H PLATELET COUNT (test code = PLT) 56 K/mm3 150-450 L MEAN PLATELET VOLUME (test code = MPV) TEST NOT PERFORMED fL 6.7-11 .0 NEUTROPHIL % (test code = NT%) 75.3 % 39.0-69.0 H IMMATURE GRANULOCYTE % (test code = IG%) 1.3 % 0.0-5.0 N LYMPHOCYTE % (test code = LY%) 16.3 % 25.0-55.0 L MONOCYTE % (test code = MO%) 3.6 % 0.0-10.0 N EOSINOPHIL % (test code = EO%) 3.4 % 0.0-5.0 N BASOPHIL % (test code = BA%) 0.1 % 0.0-1.0 N NUCLEATED RBC % (test code = NRBC%) 0.0 % 0-0 N NEUTROPHIL # (test code = NT#) 8.10 K/mm3 1.8-7.7 H IMMATURE GRANULOCYTE # (test code = IG#) 0.14 x10 3/uL 0-0.03 H LYMPHOCYTE # (test code = LY#) 1.76 K/mm3 1.0-5.0 N MONOCYTE # (test code = MO#) 0.39 K/mm3 0-0.8 N EOSINOPHIL # (test code = EO#) 0.37 K/mm3 0.0-0.5 N BASOPHIL # (test code = BA#) 0.01 K/mm3 0.0-0.2 N NUCLEATED RBC # (test code = NRBC#) 0.00 K/mm3 0.0-0.1 N MANUAL DIFF REQUIRED (test code = MDIFF) NO, ONLY SCAN NEEDED DIFFERENTIAL [id number] 07:09:00* Test Item Value Reference Range Interpretation Comments STAIN ACCEPTABILITY (test code = STN ACCEPTABLE) CABOT RINGS (test code = CAB) MORPHOLOGY COMMENT (test code = MOC) PLATELET ESTIMATE (test code = PLTEST) PLATELET MORPHOLOGY (test code = PLTMORPH) CBC W/AUTO [id number] 07:09:00* Test Item Value Reference Range Interpretation Comments WHITE BLOOD CELL (test code = WBC) 10.8 K/mm3 4.5-12.5 N RED BLOOD CELL (test code = RBC) 3.39 mill/mm3 3.7-5.2 L HEMOGLOBIN (test code = HGB) 9.2 gram/dL 11.5-15.5 L HEMATOCRIT (test code = HCT) 29.8 % 36.0-46.0 L MEAN CELL VOLUME (test code = MCV) 87.9 fL 80-98 N MEAN CELL HGB (test code = MCH) 27.1 picogram 27.0-33.0 N MEAN CELL HGB CONCETRATION (test code = MCHC) 30.9 gram/dL 33.0-36. 0 L RED CELL DISTRIBUTION WIDTH (test code = RDW) 17.6 % 11.6-16. 2 H RED CELL DISTRIBUTION WIDTH SD (test code = RDW-SD) 54.2 fL 37 .0-51.0 H PLATELET COUNT (test code = PLT) 56 K/mm3 150-450 L MEAN PLATELET VOLUME (test code = MPV) TEST NOT PERFORMED fL 6.7-11 .0 NEUTROPHIL % (test code = NT%) 75.3 % 39.0-69.0 H IMMATURE GRANULOCYTE % (test code = IG%) 1.3 % 0.0-5.0 N LYMPHOCYTE % (test code = LY%) 16.3 % 25.0-55.0 L MONOCYTE % (test code = MO%) 3.6 % 0.0-10.0 N EOSINOPHIL % (test code = EO%) 3.4 % 0.0-5.0 N BASOPHIL % (test code = BA%) 0.1 % 0.0-1.0 N NUCLEATED RBC % (test code = NRBC%) 0.0 % 0-0 N NEUTROPHIL # (test code = NT#) 8.10 K/mm3 1.8-7.7 H IMMATURE GRANULOCYTE # (test code = IG#) 0.14 x10 3/uL 0-0.03 H LYMPHOCYTE # (test code = LY#) 1.76 K/mm3 1.0-5.0 N MONOCYTE # (test code = MO#) 0.39 K/mm3 0-0.8 N EOSINOPHIL # (test code = EO#) 0.37 K/mm3 0.0-0.5 N BASOPHIL # (test code = BA#) 0.01 K/mm3 0.0-0.2 N NUCLEATED RBC # (test code = NRBC#) 0.00 K/mm3 0.0-0.1 N MANUAL DIFF REQUIRED (test code = MDIFF) NO, ONLY SCAN NEEDED DIFFERENTIAL [id number] 07:09:00* Test Item Value Reference Range Interpretation Comments STAIN ACCEPTABILITY (test code = STN ACCEPTABLE) MORPHOLOGY COMMENT (test code = MOC) PLATELET ESTIMATE (test code = PLTEST) PLATELET MORPHOLOGY (test code = PLTMORPH) CBC W/AUTO [id number] 07:08:00* Test Item Value Reference Range Interpretation Comments WHITE BLOOD CELL (test code = WBC) 10.8 K/mm3 4.5-12.5 N RED BLOOD CELL (test code = RBC) 3.39 mill/mm3 3.7-5.2 L HEMOGLOBIN (test code = HGB) 9.2 gram/dL 11.5-15.5 L HEMATOCRIT (test code = HCT) 29.8 % 36.0-46.0 L MEAN CELL VOLUME (test code = MCV) 87.9 fL 80-98 N MEAN CELL HGB (test code = MCH) 27.1 picogram 27.0-33.0 N MEAN CELL HGB CONCETRATION (test code = MCHC) 30.9 gram/dL 33.0-36. 0 L RED CELL DISTRIBUTION WIDTH (test code = RDW) 17.6 % 11.6-16. 2 H RED CELL DISTRIBUTION WIDTH SD (test code = RDW-SD) 54.2 fL 37 .0-51.0 H PLATELET COUNT (test code = PLT) 56 K/mm3 150-450 L MEAN PLATELET VOLUME (test code = MPV) TEST NOT PERFORMED fL 6.7-11 .0 NEUTROPHIL % (test code = NT%) 75.3 % 39.0-69.0 H IMMATURE GRANULOCYTE % (test code = IG%) 1.3 % 0.0-5.0 N LYMPHOCYTE % (test code = LY%) 16.3 % 25.0-55.0 L MONOCYTE % (test code = MO%) 3.6 % 0.0-10.0 N EOSINOPHIL % (test code = EO%) 3.4 % 0.0-5.0 N BASOPHIL % (test code = BA%) 0.1 % 0.0-1.0 N NUCLEATED RBC % (test code = NRBC%) 0.0 % 0-0 N NEUTROPHIL # (test code = NT#) 8.10 K/mm3 1.8-7.7 H IMMATURE GRANULOCYTE # (test code = IG#) 0.14 x10 3/uL 0-0.03 H LYMPHOCYTE # (test code = LY#) 1.76 K/mm3 1.0-5.0 N MONOCYTE # (test code = MO#) 0.39 K/mm3 0-0.8 N EOSINOPHIL # (test code = EO#) 0.37 K/mm3 0.0-0.5 N BASOPHIL # (test code = BA#) 0.01 K/mm3 0.0-0.2 N NUCLEATED RBC # (test code = NRBC#) 0.00 K/mm3 0.0-0.1 N MANUAL DIFF REQUIRED (test code = MDIFF) NO, ONLY SCAN NEEDED DIFFERENTIAL [id number] 07:08:00* Test Item Value Reference Range Interpretation Comments STAIN ACCEPTABILITY (test code = STN ACCEPTABLE) CABOT RINGS (test code = CAB) MORPHOLOGY COMMENT (test code = MOC) PLATELET ESTIMATE (test code = PLTEST) PLATELET MORPHOLOGY (test code = PLTMORPH) CBC W/AUTO [id number] 07:08:00* Test Item Value Reference Range Interpretation Comments WHITE BLOOD CELL (test code = WBC) 10.8 K/mm3 4.5-12.5 N RED BLOOD CELL (test code = RBC) 3.39 mill/mm3 3.7-5.2 L HEMOGLOBIN (test code = HGB) 9.2 gram/dL 11.5-15.5 L HEMATOCRIT (test code = HCT) 29.8 % 36.0-46.0 L MEAN CELL VOLUME (test code = MCV) 87.9 fL 80-98 N MEAN CELL HGB (test code = MCH) 27.1 picogram 27.0-33.0 N MEAN CELL HGB CONCETRATION (test code = MCHC) 30.9 gram/dL 33.0-36. 0 L RED CELL DISTRIBUTION WIDTH (test code = RDW) 17.6 % 11.6-16. 2 H RED CELL DISTRIBUTION WIDTH SD (test code = RDW-SD) 54.2 fL 37 .0-51.0 H PLATELET COUNT (test code = PLT) 56 K/mm3 150-450 L MEAN PLATELET VOLUME (test code = MPV) TEST NOT PERFORMED fL 6.7-11 .0 NEUTROPHIL % (test code = NT%) 75.3 % 39.0-69.0 H IMMATURE GRANULOCYTE % (test code = IG%) 1.3 % 0.0-5.0 N LYMPHOCYTE % (test code = LY%) 16.3 % 25.0-55.0 L MONOCYTE % (test code = MO%) 3.6 % 0.0-10.0 N EOSINOPHIL % (test code = EO%) 3.4 % 0.0-5.0 N BASOPHIL % (test code = BA%) 0.1 % 0.0-1.0 N NUCLEATED RBC % (test code = NRBC%) 0.0 % 0-0 N NEUTROPHIL # (test code = NT#) 8.10 K/mm3 1.8-7.7 H IMMATURE GRANULOCYTE # (test code = IG#) 0.14 x10 3/uL 0-0.03 H LYMPHOCYTE # (test code = LY#) 1.76 K/mm3 1.0-5.0 N MONOCYTE # (test code = MO#) 0.39 K/mm3 0-0.8 N EOSINOPHIL # (test code = EO#) 0.37 K/mm3 0.0-0.5 N BASOPHIL # (test code = BA#) 0.01 K/mm3 0.0-0.2 N NUCLEATED RBC # (test code = NRBC#) 0.00 K/mm3 0.0-0.1 N MANUAL DIFF REQUIRED (test code = MDIFF) NO, ONLY SCAN NEEDED DIFFERENTIAL [id number] 07:08:00* Test Item Value Reference Range Interpretation Comments STAIN ACCEPTABILITY (test code = STN ACCEPTABLE) CABOT RINGS (test code = CAB) MORPHOLOGY COMMENT (test code = MOC) PLATELET ESTIMATE (test code = PLTEST) PLATELET MORPHOLOGY (test code = PLTMORPH) ARTERIAL BLOOD [id number] 05:25:00* Test Item Value Reference Range Interpretation Comments ARTERIAL BLOOD GAS PH (test code = PHA) 7.44 7.35-7.45 N ARTERIAL BLOOD GAS PCO2 (test code = PCO2A) 37.3 mm Hg 35-45 N ARTERIAL BLOOD GAS PO2 (test code = PO2A) 227.2 mmHg 80-100 H BICARBONATE TOTAL HCO3 (test code = HCO3) 24.9 mmol/L 23.0-27.0 N BASE EXCESS (test code = TERRENCE) 0.9 mmol/L -3.0-5.0 N ABG O2 SATURATION (test code = SATA) 99.1 % 90.0-98.0 H ABG TYPE (test code = TYPEA) Arterial FIO2 (test code = FIO2A) 70.0 ABG VENT MODE (test code = MODEA) Assist Control ABG VENT RESP RATE (test code = RRA) 16.0 per min ABG TIDAL VOLUME (test code = TVA) 420.0 mL ABG PEEP (test code = PEEPA) 5.0 cmH2O ABG SITE (test code = SITEA) ARTERIAL LINE MODIFIED ALLENS (test code = MODALL) Yes CHECK PERFORMED HEMATOCRIT (test code = HCT/ABG) 31 % 35-47 L TOTAL HGB (test code = THB) 10.4 gram/dL 11.5-15.5 L HGB O2 SAT (test code = HBOSAT) 98.3 % 94.00-98.00 H CARBOXYHEMOGLOBIN (test code = HOHGBT) 0.3 %totalHg 0.5-1.5 LL Results called to and read back by Cece Davis 05:24 - 10/25/2018; by jigar METHEMOGLOBIN (test code = METHGB) 0.5 % 0.0-1.50 N O2 CONTENT (test code = O2CT) 14.9 % vol 18.0-22.0 L CBC W/MANUAL [id number] 20:20:00* Test Item Value Reference Range Interpretation Comments WHITE BLOOD CELL (test code = WBC) 10.1 K/mm3 4.5-12.5 N RED BLOOD CELL (test code = RBC) 3.12 mill/mm3 3.7-5.2 L HEMOGLOBIN (test code = HGB) 8.0 gram/dL 11.5-15.5 L HEMATOCRIT (test code = HCT) 27.1 % 36.0-46.0 L MEAN CELL VOLUME (test code = MCV) 86.9 fL 80-98 N MEAN CELL HGB (test code = MCH) 25.6 picogram 27.0-33.0 L MEAN CELL HGB CONCETRATION (test code = MCHC) 29.5 gram/dL 33.0-36. 0 L RED CELL DISTRIBUTION WIDTH (test code = RDW) 17.2 % 11.6-16. 2 H RED CELL DISTRIBUTION WIDTH SD (test code = RDW-SD) 52.7 fL 37 .0-51.0 H PLATELET COUNT (test code = PLT) 54 K/mm3 150-450 L MEAN PLATELET VOLUME (test code = MPV) 0.0 fL 6.7-11.0 L IMMATURE GRANULOCYTE % (test code = IG%) 1.3 % 0.0-5.0 N NUCLEATED RBC % (test code = NRBC%) 0.2 % 0-0 H NEUTROPHIL # (test code = NT#) 7.73 K/mm3 1.8-7.7 H IMMATURE GRANULOCYTE # (test code = IG#) 0.13 x10 3/uL 0-0.03 H LYMPHOCYTE # (test code = LY#) 1.59 K/mm3 1.0-5.0 N MONOCYTE # (test code = MO#) 0.54 K/mm3 0-0.8 N EOSINOPHIL # (test code = EO#) 0.14 K/mm3 0.0-0.5 N BASOPHIL # (test code = BA#) 0.01 K/mm3 0.0-0.2 N NUCLEATED RBC # (test code = NRBC#) 0.02 K/mm3 0.0-0.1 N MANUAL DIFF REQUIRED (test code = MDIFF) YES STAIN ACCEPTABILITY (test code = STN ACCEPTABLE) STAIN ACCEPTABLE TOTAL CELLS COUNTED (test code = TCC) 115 #CELLS SEGMENTED NEUTROPHILS (test code = SEG) 84.3 % 39-69 H BAND NEUTROPHIL (test code = BAND) 0 % 0-10 N LYMPHOCYTE (test code = LYMPH) 14.8 % 25-55 L REACTIVE LYMPH (test code = RELYMPH) 0 % MONOCYTE (test code = MON) 0.9 % 0-10 N EOSINOPHIL (test code = EOS) 0 % 0.0-5.0 N BASOPHIL (test code = BASO) 0 % 0-1.0 N METAMYELOCYTE (test code = META) 0 % 0-0 N MYELOCYTE (test code = MYELO) 0 % 0.0-0.0 N PROMYELOCYTE (test code = PROM) 0 % 0-0 N POIKILOCYTOSIS (test code = POIK) 1+ ANISOCYTOSIS (test code = ANISO) 2+ MACROCYTOSIS (test code = MACR) 2+ PLATELET ESTIMATE (test code = PLTEST) DECREASED PLATELET MORPHOLOGY (test code = PLTMORPH) NORMAL IMMATURE FORMS (test code = IMMAT) 0 % URINALYSIS [id number] 20:17:00* Test Item Value Reference Range Interpretation Comments UA COLOR (test code = COLU) YELLOW YELLOW UA APPEARANCE (test code = APPU) TURBID CLEAR A UA GLUCOSE DIPSTICK (test code = DGLUU) NEGATIVE mg/dL NEGATIVE UA BILIRUBIN DIPSTICK (test code = BILU) NEGATIVE mg/dL NEGATIVE UA KETONE DIPSTICK (test code = KETU) NEGATIVE mg/dL NEGATIVE UA SPECIFIC GRAVITY (test code = SGU) 1.008 1.001-1.035 UA BLOOD DIPSTICK (test code = JONO) 3+ (Large) mg/dL NEGATIVE A UA PH DIPSTICK (test code = AHMET) 6.0 5.0-8.0 UA PROTEIN DIPSTICK (test code = PROU) 100 (2+) mg/dL NEGATIVE A UA UROBILINIOGEN DIPSTICK (test code = URO) NEGATIVE mg/dL NEGATIVE UA NITRITE DIPSTICK (test code = IFEOMA) NEGATIVE NEGATIVE UA LEUKOCYTE ESTERASE W REFLEX (test code = LEUUR) 2+ Franki/uL NEG ATIVE A UA WBC (test code = WBCU) >50 per HPF 0-5 A UA RBC (test code = RBCU) >20 #/HPF 0-5 A UA WBC CLUMPS (test code = WBCUCL) >10 /HPF NONE A UA EPITHELIAL CELLS (test code = EPIU) MANY per HPF FEW UA BACTERIA (test code = BACU) FEW #/HPF NONE A UA MUCUS (test code = MUCU) FEW #/LPF FEW UA YEAST (test code = YEASTU) FEW #/HPF NONE Urine Source? Clean CatchURINALYSIS [id number] 20:11:00* Test Item Value Reference Range Interpretation Comments UA COLOR (test code = COLU) YELLOW YELLOW UA APPEARANCE (test code = APPU) TURBID CLEAR A UA GLUCOSE DIPSTICK (test code = DGLUU) NEGATIVE mg/dL NEGATIVE UA BILIRUBIN DIPSTICK (test code = BILU) NEGATIVE mg/dL NEGATIVE UA KETONE DIPSTICK (test code = KETU) NEGATIVE mg/dL NEGATIVE UA SPECIFIC GRAVITY (test code = SGU) 1.008 1.001-1.035 UA BLOOD DIPSTICK (test code = JONO) 3+ (Large) mg/dL NEGATIVE A UA PH DIPSTICK (test code = AHMET) 6.0 5.0-8.0 UA PROTEIN DIPSTICK (test code = PROU) 100 (2+) mg/dL NEGATIVE A UA UROBILINIOGEN DIPSTICK (test code = URO) NEGATIVE mg/dL NEGATIVE UA NITRITE DIPSTICK (test code = IFEOMA) NEGATIVE NEGATIVE UA LEUKOCYTE ESTERASE W REFLEX (test code = LEUUR) 2+ Franki/uL NEG ATIVE A UA WBC (test code = WBCU) per HPF 0-5 Urine Source? Clean CatchBASIC METABOLIC [id number] 19:00:00* Test Item Value Reference Range Interpretation Comments SODIUM (test code = NA) 141 mmol/L 136-145 N POTASSIUM (test code = K) 4.0 mmol/L 3.5-5.1 N CHLORIDE (test code = CL) 105.0 mmol/L 98-107 N CARBON DIOXIDE (test code = CO2) 27.0 mmol/L 21-32 N ANION GAP (test code = GAP) 13.0 10-20 N GLUCOSE (test code = GLU) 136 mg/dL 74-106 H BLOOD UREA NITROGEN (test code = BUN) 33 mg/dL 7-18 H GLOMERULAR FILTRATION RATE (test code = GFR) 28 mL/min >=60 Estimated GFR by using Modified MDRD formula.Chronic kidney disease is defined as either kidney damageor GFR <60 mL/min/1.73 m2 for >3 months. CREATININE (test code = CREAT) 1.90 mg/dL 0.55-1.02 H Note change in reference range due to change in reagent. BUN/CREATININE RATIO (test code = BUN/CREA) 17.4 10-20 N CALCIUM (test code = CA) 8.1 mg/dL 8.5-10.1 L THYROID PROFILE [id number] 19:00:00* Test Item Value Reference Range Interpretation Comments T3 UPTAKE (test code = T3UP) 41.0 % 30.0-40.0 H T4 (THYROXINE) (test code = T4) 5.6 ug/dL 4.5-13.9 N T7 (FREE THYROXINE INDEX) (test code = T7) 2.29 FTI 1.3-5.1 N THYROID STIMULATING HORMONE (test code = TSH) 9.920 uIU/mL 0.36-3.7 4 H TSH REFERENCE RANGES: EUTHYROID: 0.35 - 4.3 mIU/mL HYPO : > 5.5 mIU/mL HYPER : < 0.35 mIU/mL BASIC METABOLIC [id number] 18:46:00* Test Item Value Reference Range Interpretation Comments SODIUM (test code = NA) 141 mmol/L 136-145 N POTASSIUM (test code = K) 4.0 mmol/L 3.5-5.1 N CHLORIDE (test code = CL) 105.0 mmol/L 98-107 N CARBON DIOXIDE (test code = CO2) mmol/L 21-32 ANION GAP (test code = GAP) 10-20 GLUCOSE (test code = GLU) mg/dL 74-106 BLOOD UREA NITROGEN (test code = BUN) mg/dL 7-18 GLOMERULAR FILTRATION RATE (test code = GFR) mL/min >=60 CREATININE (test code = CREAT) mg/dL 0.55-1.02 BUN/CREATININE RATIO (test code = BUN/CREA) 10-20 CALCIUM (test code = CA) mg/dL 8.5-10.1 THYROID PROFILE [id number] 18:46:00* Test Item Value Reference Range Interpretation Comments T3 UPTAKE (test code = T3UP) % 30.0-40.0 T4 (THYROXINE) (test code = T4) ug/dL 4.5-13.9 T7 (FREE THYROXINE INDEX) (test code = T7) FTI 1.3-5.1 THYROID STIMULATING HORMONE (test code = TSH) uIU/mL 0.36-3.7 4 CBC W/MANUAL [id number] 18:42:00* Test Item Value Reference Range Interpretation Comments WHITE BLOOD CELL (test code = WBC) 10.1 K/mm3 4.5-12.5 N RED BLOOD CELL (test code = RBC) 3.12 mill/mm3 3.7-5.2 L HEMOGLOBIN (test code = HGB) 8.0 gram/dL 11.5-15.5 L HEMATOCRIT (test code = HCT) 27.1 % 36.0-46.0 L MEAN CELL VOLUME (test code = MCV) 86.9 fL 80-98 N MEAN CELL HGB (test code = MCH) 25.6 picogram 27.0-33.0 L MEAN CELL HGB CONCETRATION (test code = MCHC) 29.5 gram/dL 33.0-36. 0 L RED CELL DISTRIBUTION WIDTH (test code = RDW) 17.2 % 11.6-16. 2 H RED CELL DISTRIBUTION WIDTH SD (test code = RDW-SD) 52.7 fL 37 .0-51.0 H PLATELET COUNT (test code = PLT) 54 K/mm3 150-450 L MEAN PLATELET VOLUME (test code = MPV) 0.0 fL 6.7-11.0 L IMMATURE GRANULOCYTE % (test code = IG%) 1.3 % 0.0-5.0 N NUCLEATED RBC % (test code = NRBC%) 0.2 % 0-0 H NEUTROPHIL # (test code = NT#) 7.73 K/mm3 1.8-7.7 H IMMATURE GRANULOCYTE # (test code = IG#) 0.13 x10 3/uL 0-0.03 H LYMPHOCYTE # (test code = LY#) 1.59 K/mm3 1.0-5.0 N MONOCYTE # (test code = MO#) 0.54 K/mm3 0-0.8 N EOSINOPHIL # (test code = EO#) 0.14 K/mm3 0.0-0.5 N BASOPHIL # (test code = BA#) 0.01 K/mm3 0.0-0.2 N NUCLEATED RBC # (test code = NRBC#) 0.02 K/mm3 0.0-0.1 N MANUAL DIFF REQUIRED (test code = MDIFF) YES STAIN ACCEPTABILITY (test code = STN ACCEPTABLE) TOTAL CELLS COUNTED (test code = TCC) #CELLS SEGMENTED NEUTROPHILS (test code = SEG) % 39-69 LYMPHOCYTE (test code = LYMPH) % 25-55 MONOCYTE (test code = MON) % 0-10 EOSINOPHIL (test code = EOS) % 0.0-5.0 CABOT RINGS (test code = CAB) MORPHOLOGY COMMENT (test code = MOC) PLATELET ESTIMATE (test code = PLTEST) PLATELET MORPHOLOGY (test code = PLTMORPH) CBC W/MANUAL [id number] 18:42:00* Test Item Value Reference Range Interpretation Comments WHITE BLOOD CELL (test code = WBC) 10.1 K/mm3 4.5-12.5 N RED BLOOD CELL (test code = RBC) 3.12 mill/mm3 3.7-5.2 L HEMOGLOBIN (test code = HGB) 8.0 gram/dL 11.5-15.5 L HEMATOCRIT (test code = HCT) 27.1 % 36.0-46.0 L MEAN CELL VOLUME (test code = MCV) 86.9 fL 80-98 N MEAN CELL HGB (test code = MCH) 25.6 picogram 27.0-33.0 L MEAN CELL HGB CONCETRATION (test code = MCHC) 29.5 gram/dL 33.0-36. 0 L RED CELL DISTRIBUTION WIDTH (test code = RDW) 17.2 % 11.6-16. 2 H RED CELL DISTRIBUTION WIDTH SD (test code = RDW-SD) 52.7 fL 37 .0-51.0 H PLATELET COUNT (test code = PLT) 54 K/mm3 150-450 L MEAN PLATELET VOLUME (test code = MPV) 0.0 fL 6.7-11.0 L IMMATURE GRANULOCYTE % (test code = IG%) 1.3 % 0.0-5.0 N NUCLEATED RBC % (test code = NRBC%) 0.2 % 0-0 H NEUTROPHIL # (test code = NT#) 7.73 K/mm3 1.8-7.7 H IMMATURE GRANULOCYTE # (test code = IG#) 0.13 x10 3/uL 0-0.03 H LYMPHOCYTE # (test code = LY#) 1.59 K/mm3 1.0-5.0 N MONOCYTE # (test code = MO#) 0.54 K/mm3 0-0.8 N EOSINOPHIL # (test code = EO#) 0.14 K/mm3 0.0-0.5 N BASOPHIL # (test code = BA#) 0.01 K/mm3 0.0-0.2 N NUCLEATED RBC # (test code = NRBC#) 0.02 K/mm3 0.0-0.1 N MANUAL DIFF REQUIRED (test code = MDIFF) YES STAIN ACCEPTABILITY (test code = STN ACCEPTABLE) TOTAL CELLS COUNTED (test code = TCC) #CELLS SEGMENTED NEUTROPHILS (test code = SEG) % 39-69 LYMPHOCYTE (test code = LYMPH) % 25-55 MONOCYTE (test code = MON) % 0-10 EOSINOPHIL (test code = EOS) % 0.0-5.0 MORPHOLOGY COMMENT (test code = MOC) PLATELET ESTIMATE (test code = PLTEST) PLATELET MORPHOLOGY (test code = PLTMORPH) CBC W/MANUAL [id number] 18:42:00* Test Item Value Reference Range Interpretation Comments WHITE BLOOD CELL (test code = WBC) 10.1 K/mm3 4.5-12.5 N RED BLOOD CELL (test code = RBC) 3.12 mill/mm3 3.7-5.2 L HEMOGLOBIN (test code = HGB) 8.0 gram/dL 11.5-15.5 L HEMATOCRIT (test code = HCT) 27.1 % 36.0-46.0 L MEAN CELL VOLUME (test code = MCV) 86.9 fL 80-98 N MEAN CELL HGB (test code = MCH) 25.6 picogram 27.0-33.0 L MEAN CELL HGB CONCETRATION (test code = MCHC) 29.5 gram/dL 33.0-36. 0 L RED CELL DISTRIBUTION WIDTH (test code = RDW) 17.2 % 11.6-16. 2 H RED CELL DISTRIBUTION WIDTH SD (test code = RDW-SD) 52.7 fL 37 .0-51.0 H PLATELET COUNT (test code = PLT) 54 K/mm3 150-450 L MEAN PLATELET VOLUME (test code = MPV) 0.0 fL 6.7-11.0 L IMMATURE GRANULOCYTE % (test code = IG%) 1.3 % 0.0-5.0 N NUCLEATED RBC % (test code = NRBC%) 0.2 % 0-0 H NEUTROPHIL # (test code = NT#) 7.73 K/mm3 1.8-7.7 H IMMATURE GRANULOCYTE # (test code = IG#) 0.13 x10 3/uL 0-0.03 H LYMPHOCYTE # (test code = LY#) 1.59 K/mm3 1.0-5.0 N MONOCYTE # (test code = MO#) 0.54 K/mm3 0-0.8 N EOSINOPHIL # (test code = EO#) 0.14 K/mm3 0.0-0.5 N BASOPHIL # (test code = BA#) 0.01 K/mm3 0.0-0.2 N NUCLEATED RBC # (test code = NRBC#) 0.02 K/mm3 0.0-0.1 N MANUAL DIFF REQUIRED (test code = MDIFF) YES STAIN ACCEPTABILITY (test code = STN ACCEPTABLE) TOTAL CELLS COUNTED (test code = TCC) #CELLS SEGMENTED NEUTROPHILS (test code = SEG) % 39-69 LYMPHOCYTE (test code = LYMPH) % 25-55 MONOCYTE (test code = MON) % 0-10 MORPHOLOGY COMMENT (test code = MOC) PLATELET ESTIMATE (test code = PLTEST) PLATELET MORPHOLOGY (test code = PLTMORPH) [id number] 18:41:00* Test Item Value Reference Range Interpretation Comments POTASSIUM (test code = K) 4.0 mmol/L 3.5-5.1 N CBC W/MANUAL [id number] 18:41:00* Test Item Value Reference Range Interpretation Comments WHITE BLOOD CELL (test code = WBC) 10.1 K/mm3 4.5-12.5 N RED BLOOD CELL (test code = RBC) 3.12 mill/mm3 3.7-5.2 L HEMOGLOBIN (test code = HGB) 8.0 gram/dL 11.5-15.5 L HEMATOCRIT (test code = HCT) 27.1 % 36.0-46.0 L MEAN CELL VOLUME (test code = MCV) 86.9 fL 80-98 N MEAN CELL HGB (test code = MCH) 25.6 picogram 27.0-33.0 L MEAN CELL HGB CONCETRATION (test code = MCHC) 29.5 gram/dL 33.0-36. 0 L RED CELL DISTRIBUTION WIDTH (test code = RDW) 17.2 % 11.6-16. 2 H RED CELL DISTRIBUTION WIDTH SD (test code = RDW-SD) 52.7 fL 37 .0-51.0 H PLATELET COUNT (test code = PLT) 54 K/mm3 150-450 L MEAN PLATELET VOLUME (test code = MPV) 0.0 fL 6.7-11.0 L IMMATURE GRANULOCYTE % (test code = IG%) 1.3 % 0.0-5.0 N NUCLEATED RBC % (test code = NRBC%) 0.2 % 0-0 H NEUTROPHIL # (test code = NT#) 7.73 K/mm3 1.8-7.7 H IMMATURE GRANULOCYTE # (test code = IG#) 0.13 x10 3/uL 0-0.03 H LYMPHOCYTE # (test code = LY#) 1.59 K/mm3 1.0-5.0 N MONOCYTE # (test code = MO#) 0.54 K/mm3 0-0.8 N EOSINOPHIL # (test code = EO#) 0.14 K/mm3 0.0-0.5 N BASOPHIL # (test code = BA#) 0.01 K/mm3 0.0-0.2 N NUCLEATED RBC # (test code = NRBC#) 0.02 K/mm3 0.0-0.1 N MANUAL DIFF REQUIRED (test code = MDIFF) YES STAIN ACCEPTABILITY (test code = STN ACCEPTABLE) TOTAL CELLS COUNTED (test code = TCC) #CELLS SEGMENTED NEUTROPHILS (test code = SEG) % 39-69 LYMPHOCYTE (test code = LYMPH) % 25-55 MONOCYTE (test code = MON) % 0-10 EOSINOPHIL (test code = EOS) % 0.0-5.0 CABOT RINGS (test code = CAB) MORPHOLOGY COMMENT (test code = MOC) PLATELET ESTIMATE (test code = PLTEST) PLATELET MORPHOLOGY (test code = PLTMORPH) CBC W/MANUAL [id number] 18:41:00* Test Item Value Reference Range Interpretation Comments WHITE BLOOD CELL (test code = WBC) 10.1 K/mm3 4.5-12.5 N RED BLOOD CELL (test code = RBC) 3.12 mill/mm3 3.7-5.2 L HEMOGLOBIN (test code = HGB) 8.0 gram/dL 11.5-15.5 L HEMATOCRIT (test code = HCT) 27.1 % 36.0-46.0 L MEAN CELL VOLUME (test code = MCV) 86.9 fL 80-98 N MEAN CELL HGB (test code = MCH) 25.6 picogram 27.0-33.0 L MEAN CELL HGB CONCETRATION (test code = MCHC) 29.5 gram/dL 33.0-36. 0 L RED CELL DISTRIBUTION WIDTH (test code = RDW) 17.2 % 11.6-16. 2 H RED CELL DISTRIBUTION WIDTH SD (test code = RDW-SD) 52.7 fL 37 .0-51.0 H PLATELET COUNT (test code = PLT) 54 K/mm3 150-450 L MEAN PLATELET VOLUME (test code = MPV) 0.0 fL 6.7-11.0 L IMMATURE GRANULOCYTE % (test code = IG%) 1.3 % 0.0-5.0 N NUCLEATED RBC % (test code = NRBC%) 0.2 % 0-0 H NEUTROPHIL # (test code = NT#) 7.73 K/mm3 1.8-7.7 H IMMATURE GRANULOCYTE # (test code = IG#) 0.13 x10 3/uL 0-0.03 H LYMPHOCYTE # (test code = LY#) 1.59 K/mm3 1.0-5.0 N MONOCYTE # (test code = MO#) 0.54 K/mm3 0-0.8 N EOSINOPHIL # (test code = EO#) 0.14 K/mm3 0.0-0.5 N BASOPHIL # (test code = BA#) 0.01 K/mm3 0.0-0.2 N NUCLEATED RBC # (test code = NRBC#) 0.02 K/mm3 0.0-0.1 N MANUAL DIFF REQUIRED (test code = MDIFF) YES STAIN ACCEPTABILITY (test code = STN ACCEPTABLE) TOTAL CELLS COUNTED (test code = TCC) #CELLS SEGMENTED NEUTROPHILS (test code = SEG) % 39-69 LYMPHOCYTE (test code = LYMPH) % 25-55 MONOCYTE (test code = MON) % 0-10 EOSINOPHIL (test code = EOS) % 0.0-5.0 CABOT RINGS (test code = CAB) MORPHOLOGY COMMENT (test code = MOC) PLATELET ESTIMATE (test code = PLTEST) PLATELET MORPHOLOGY (test code = PLTMORPH) [id number] 18:21:00* Test Item Value Reference Range Interpretation Comments GLUBED (test code = GLUBED) 147 mg/dL 74-106 H Performed by certified machine operator hop picker at [facility] ([facility] [id number] 16:29:00* Test Item Value Reference Range Interpretation Comments HEMOGLOBIN (test code = HGB) 8.0 gram/dL 11.5-15.5 L RESULT VERIFIED BY REPEAT ANALYSIS [id number] 15:59:00* Test Item Value Reference Range Interpretation Comments GLUBED (test code = GLUBED) 126 mg/dL 74-106 H Performed by certified machine operator hop picker at [facility]) [id number] 13:28:00* Test Item Value Reference Range Interpretation Comments POTASSIUM (test code = K) 4.1 mmol/L 3.5-5.1 N [id number] 12:52:00* Test Item Value Reference Range Interpretation Comments HEMOGLOBIN (test code = HGB) 12.7 gram/dL 11.5-15.5 RESULT VERIFIED BY REPEAT ANALYSIS [id number] 12:46:00* Test Item Value Reference Range Interpretation Comments POTASSIUM (test code = K) 4.6 mmol/L 3.5-5.1 [id number] 12:31:00* Test Item Value Reference Range Interpretation Comments GLUBED (test code = GLUBED) 225 mg/dL 74-106 H Performed by certified machine operator hop picker at [facility]) [id number] 12:26:00* Test Item Value Reference Range Interpretation Comments GLUBED (test code = GLUBED) 152 mg/dL 74-106 H Performed by certified machine operator hop picker at [facility]) [id number] 08:22:00* Test Item Value Reference Range Interpretation Comments POTASSIUM (test code = K) 6.2 mmol/L 3.5-5.1 [facility] mimi called to YUE Ramírez V.LAB.OA 10/24/18 0822Critical results verified and read back by Nurse? Y [id number] 08:20:00* Test Item Value Reference Range Interpretation Comments GLUBED (test code = GLUBED) 112 mg/dL 74-106 H Performed by certified machine operator hop picker at [facility]) [id number] 08:20:00* Test Item Value Reference Range Interpretation Comments GLUBED (test code = GLUBED) 95 mg/dL 74-106 N Performed by certified machine operator hop picker at [facility]) [id number] 08:04:00* Test Item Value Reference Range Interpretation Comments PHOSPHORUS (test code = PHOS) 5.9 mg/dL 2.5-4.9 H [id number] 08:04:00* Test Item Value Reference Range Interpretation Comments MAGNESIUM (test code = MAG) 2.2 mg/dL 1.8-2.4 N CALCIUM [id number] 08:04:00* Test Item Value Reference Range Interpretation Comments CALCIUM IONIZED (test code = MARIAH) 1.31 mmol/L 1.12-1.32 N [id number] 08:01:00* Test Item Value Reference Range Interpretation Comments PHOSPHORUS (test code = PHOS) 5.9 mg/dL 2.5-4.9 H [id number] 08:01:00* Test Item Value Reference Range Interpretation Comments MAGNESIUM (test code = MAG) 2.2 mg/dL 1.8-2.4 N CALCIUM [id number] 08:01:00* Test Item Value Reference Range Interpretation Comments CALCIUM IONIZED (test code = MARIAH) mmol/L 1.12-1.32 [id number] 06:49:00* Test Item Value Reference Range Interpretation Comments HEMOGLOBIN (test code = HGB) 9.6 gram/dL 11.5-15.5 L ARTERIAL BLOOD [id number] 06:08:00* Test Item Value Reference Range Interpretation Comments ARTERIAL BLOOD GAS PH (test code = PHA) 7.31 7.35-7.45 L ARTERIAL BLOOD GAS PCO2 (test code = PCO2A) 53.6 mm Hg 35-45 H ARTERIAL BLOOD GAS PO2 (test code = PO2A) 369.0 mmHg 80-100 H BICARBONATE TOTAL HCO3 (test code = HCO3) 26.3 mmol/L 23.0-27.0 N BASE EXCESS (test code = TERRENCE) -0.6 mmol/L -3.0-5.0 N ABG O2 SATURATION (test code = SATA) 99.3 % 90.0-98.0 H ABG TYPE (test code = TYPEA) Arterial FIO2 (test code = FIO2A) 100.0 ABG VENT MODE (test code = MODEA) Assist Control ABG VENT RESP RATE (test code = RRA) 14.0 per min ABG TIDAL VOLUME (test code = TVA) 420.0 mL ABG PEEP (test code = PEEPA) 5.0 cmH2O ABG SITE (test code = SITEA) ARTERIAL LINE HEMATOCRIT (test code = HCT/ABG) 32 % 35-47 L TOTAL HGB (test code = THB) 10.8 gram/dL 11.5-15.5 L HGB O2 SAT (test code = HBOSAT) 98.5 % 94.00-98.00 H CARBOXYHEMOGLOBIN (test code = HOHGBT) 0.3 %totalHg 0.5-1.5 LL Results called to and read back by Chante 05:55 - 10/24/2018; by Chanel METHEMOGLOBIN (test code = METHGB) 0.5 % 0.0-1.50 N O2 CONTENT (test code = O2CT) 15.9 % vol 18.0-22.0 L - CT ABD PELVIS W/O [id number] 04:59:00 Name: SIOBHAN BARBOSA [facility] : 1965 Age/S: 53 / F [address] [facility] Unit #: [id number] Loc: [place] [address] Phys: Jessica Kumar MD Acct: [id number] Dis Date: Status: ADM IN PHONE #: [phone] Exam Date: 10/24/2018 0345 FAX #: [phone] Reason: ABD DISTENSION EXAMS: CPT CODE: [id number] CT ABD PELVIS W/O CONT 41164 EXAM: - CT ABD PELVIS W/O CONT [...] 1 Signed Report (CONTINUED) Name: SIOBHAN BARBOSA [facility] : 1965 Age/S: 53 / F [address] [facility] Unit #: [id number] Loc: [place] [address] Phys: Jessica Kumar MD Acct: [id number] Dis Date: Status: ADM I N PHONE #: [phone] Exam Date: 10/25/19344 FAX #: [phone] Reason: ABD DISTENSION EXAMS: CPT CODE: [id number] CT ABD PELVIS W/O CONT 90844 <Continued> at 0459 Reported and signed by: Kike Montilla MD CC: Jessica Kumar MD Technologist:AURELIA GALINDO CTDI: DLP: Trnscb Date/Time: 10/24/2018 (458) [email or web address] Orig Print D/T: S: 10/24/2018 (050) CTDI: DLP: PAGE 2 Signed Report - CT CHEST W/O [id number] 04:34:00 Name: SIOBHAN BARBOSA [facility] : 1965 Age/S: 53 / F [address] [facility] Unit #: [id number] Loc: [place] [address] Phys: Jessica Kumar MD Acct: [id number] Dis Date: Status: ADM IN PHONE #: [phone] Exam Date: 10/24/2018344 FAX #: [phone] Reason: MASS ON CXR EXAMS: CPT CODE: [id number] CT CHEST W/O CONTRAST 54605 EXAM: - CT CHEST W/O CONTRAST HISTORY: [...] Montilla MD CC: Jessica Kumar MD Technologi st:[facility] CTDI: DLP: Trnscb Date/Time: (043) [email or web address] Orig Print D/T: S: 10/24/2018 ( 0437) CTDI: DLP: PAGE 1 Signed Re port [id number] 04:20:00* Test Item Value Reference Range Interpretation Comments GLUBED (test code = GLUBED) 52 mg/dL 74-106 L Performed by certified machine operator hop picker at [facility] ([facility]) - XR CHEST 1 [id number] 03:58:00 FAX: Jessica Kumar MD [phone] [place]: St: ADM Name: SIOBHAN ROBERTS [facility] : [birth year] Age/S: 53/F [address] [facility] Unit #: [id number] Loc: [place] [address] Phys: Jessica Kumar MD Acct: [id number] Dis Date: Status: ADM IN PHONE #: [phone] Exam Date: 10/24/2018324 FAX #: [phone] Reason: LINE PLACEMENT EXAMS: CPT CODE: [id number] XR CHEST 1 V 50269 EXAM: - XR CHEST 1 V HISTORY: [...] Montilla MD CC: Jessica Kumar MD Technologist[facility] Date/Time/By: 10/25/19 19 (0358) : By: [email or web address] Orig Print D/T: S: 10/24/2018 (0403) PAGE 1 Signed Report BASIC METABOLIC [id number] 03:55:00* Test Item Value Reference Range Interpretation Comments SODIUM (test code = NA) 141 mmol/L 136-145 N POTASSIUM (test code = K) 5.8 mmol/L 3.5-5.1 H RE SULT VERIFIED BY REPEAT ANALYSIS CHLORIDE (test code = CL) 107.0 mmol/L 98-107 N CARBON DIOXIDE (test code = CO2) 27.0 mmol/L 21-32 N ANION GAP (test code = GAP) 12.8 10-20 N GLUCOSE (test code = GLU) 69 mg/dL 74-106 L BLOOD UREA NITROGEN (test code = BUN) 77 mg/dL 7-18 H GLOMERULAR FILTRATION RATE (test code = GFR) 15 mL/min >=60 Estimated GFR by using Modified MDRD formula.Chronic kidney disease is defined as either kidney damageor GFR <60 mL/min/1.73 m2 for >3 months. CREATININE (test code = CREAT) 3.30 mg/dL 0.55-1.02 H Note change in reference range due to change in reagent. BUN/CREATININE RATIO (test code = BUN/CREA) 23.3 10-20 H CALCIUM (test code = CA) 8.4 mg/dL 8.5-10.1 L ARTERIAL BLOOD [id number] 03:21:00* Test Item Value Reference Range Interpretation Comments ARTERIAL BLOOD GAS PH (test code = PHA) 7.33 7.35-7.45 L ARTERIAL BLOOD GAS PCO2 (test code = PCO2A) 47.4 mm Hg 35-45 H ARTERIAL BLOOD GAS PO2 (test code = PO2A) 363.6 mmHg 80-100 H BICARBONATE TOTAL HCO3 (test code = HCO3) 24.3 mmol/L 23.0-27.0 N BASE EXCESS (test code = TERRENCE) -1.8 mmol/L -3.0-5.0 N ABG O2 SATURATION (test code = SATA) 99.4 % 90.0-98.0 H ABG TYPE (test code = TYPEA) Arterial FIO2 (test code = FIO2A) 100.0 ABG L/M (test code = L/M) 50.00 L/MIN ABG VENT MODE (test code = MODEA) Assist Control ABG VENT RESP RATE (test code = RRA) 14.0 per min ABG TIDAL VOLUME (test code = TVA) 420.0 mL ABG PEEP (test code = PEEPA) 5.0 cmH2O ABG SITE (test code = SITEA) Rt RADIAL ARTERY HEMATOCRIT (test code = HCT/ABG) 29 % 35-47 L TOTAL HGB (test code = THB) 9.8 gram/dL 11.5-15.5 L HGB O2 SAT (test code = HBOSAT) 98.3 % 94.00-98.00 H CARBOXYHEMOGLOBIN (test code = HOHGBT) 0.2 %totalHg 0.5-1.5 LL Results called to and read back by pooja 03:20 - 10/24/2018; by xin holden METHEMOGLOBIN (test code = METHGB) 0.9 % 0.0-1.50 N O2 CONTENT (test code = O2CT) 14.5 % vol 18.0-22.0 L LACTIC [id number] 02:06:00* Test Item Value Reference Range Interpretation Comments LACTIC ACID (test code = LACT) 1.8 mmol/L 0.4-1.9 N BASIC METABOLIC [id number] 01:56:00* Test Item Value Reference Range Interpretation Comments SODIUM (test code = NA) 141 mmol/L 136-145 N POTASSIUM (test code = K) 7.0 mmol/L 3.5-5.1 Re sults called to [id number] by [email or web address] 10/24/18 0155Critical results verified and read back by Nurse? Y CHLORIDE (test code = CL) 108.0 mmol/L 98-107 H CARBON DIOXIDE (test code = CO2) 24.0 mmol/L 21-32 N ANION GAP (test code = GAP) 16.0 10-20 N GLUCOSE (test code = GLU) 55 mg/dL 74-106 L BLOOD UREA NITROGEN (test code = BUN) 80 mg/dL 7-18 H GLOMERULAR FILTRATION RATE (test code = GFR) 14 mL/min >=60 Estimated GFR by using Modified MDRD formula.Chronic kidney disease is defined as either kidney damageor GFR <60 mL/min/1.73 m2 for >3 months. CREATININE (test code = CREAT) 3.40 mg/dL 0.55-1.02 H Note change in reference range due to change in reagent. BUN/CREATININE RATIO (test code = BUN/CREA) 23.5 10-20 H CALCIUM (test code = CA) 8.5 mg/dL 8.5-10.1 N [id number] 01:55:00* Test Item Value Reference Range Interpretation Comments AMMONIA (test code = AMM) 16 umol/L 11-32 N PROTHROMBIN [id number] 01:53:00* Test Item Value Reference Range Interpretation Comments PROTHROMBIN TIME PATIENT (test code = PTP) 17.0 seconds 9.0-14.0 H INTERNATIONAL NORMAL RATIO (test code = INR) 1.4 0.8-1.2 H The therapeutic range for oral anticoagulant therapy [...] (2.5-3.5) IS PATIENT ON ANTICOAGULANTS? NTHROMBOPLASTIN TIME [id number] 01:53:00* Test Item Value Reference Range Interpretation Comments THROMBOPLASTIN TIME PARTIAL (test code = PTT) 45.0 seconds 25.0-36. 5 H IS PATIENT ON ANTICOAGULANTS? NCBC W/MANUAL [id number] 01:53:00* Test Item Value Reference Range Interpretation Comments WHITE BLOOD CELL (test code = WBC) 11.7 K/mm3 4.5-12.5 N RED BLOOD CELL (test code = RBC) 3.73 mill/mm3 3.7-5.2 N HEMOGLOBIN (test code = HGB) 9.9 gram/dL 11.5-15.5 L HEMATOCRIT (test code = HCT) 32.4 % 36.0-46.0 L MEAN CELL VOLUME (test code = MCV) 86.9 fL 80-98 N MEAN CELL HGB (test code = MCH) 26.5 picogram 27.0-33.0 L MEAN CELL HGB CONCETRATION (test code = MCHC) 30.6 gram/dL 33.0-36. 0 L RED CELL DISTRIBUTION WIDTH (test code = RDW) 17.3 % 11.6-16. 2 H RED CELL DISTRIBUTION WIDTH SD (test code = RDW-SD) 52.8 fL 37 .0-51.0 H PLATELET COUNT (test code = PLT) 63 K/mm3 150-450 L MEAN PLATELET VOLUME (test code = MPV) TEST NOT PERFORMED fL 6.7-11 .0 IMMATURE GRANULOCYTE % (test code = IG%) 0.4 % 0.0-5.0 N NUCLEATED RBC % (test code = NRBC%) 0.0 % 0-0 N NEUTROPHIL # (test code = NT#) 10.13 K/mm3 1.8-7.7 H IMMATURE GRANULOCYTE # (test code = IG#) 0.05 x10 3/uL 0-0.03 H LYMPHOCYTE # (test code = LY#) 1.05 K/mm3 1.0-5.0 N MONOCYTE # (test code = MO#) 0.40 K/mm3 0-0.8 N EOSINOPHIL # (test code = EO#) 0.01 K/mm3 0.0-0.5 N BASOPHIL # (test code = BA#) 0.01 K/mm3 0.0-0.2 N NUCLEATED RBC # (test code = NRBC#) 0.00 K/mm3 0.0-0.1 N MANUAL DIFF REQUIRED (test code = MDIFF) YES STAIN ACCEPTABILITY (test code = STN ACCEPTABLE) STAIN ACCEPTABLE TOTAL CELLS COUNTED (test code = TCC) 115 #CELLS SEGMENTED NEUTROPHILS (test code = SEG) 86.1 % 39-69 H BAND NEUTROPHIL (test code = BAND) 6.1 % 0-10 N LYMPHOCYTE (test code = LYMPH) 5.2 % 25-55 L REACTIVE LYMPH (test code = RELYMPH) 0 % MONOCYTE (test code = MON) 1.7 % 0-10 N EOSINOPHIL (test code = EOS) 0 % 0.0-5.0 N BASOPHIL (test code = BASO) 0.9 % 0-1.0 N METAMYELOCYTE (test code = META) 0 % 0-0 N MYELOCYTE (test code = MYELO) 0 % 0.0-0.0 N PROMYELOCYTE (test code = PROM) 0 % 0-0 N POIKILOCYTOSIS (test code = POIK) 1+ ANISOCYTOSIS (test code = ANISO) 2+ MACROCYTOSIS (test code = MACR) 2+ PLATELET ESTIMATE (test code = PLTEST) DECREASED PLATELET MORPHOLOGY (test code = PLTMORPH) NORMAL IMMATURE FORMS (test code = IMMAT) 0 % PROCALCITONIN (PCT)[id number] 01:08:00* Test Item Value Reference Range Interpretation Comments PROCALCITONIN (PCT) (test code = PROCAL) 37.51 ng/ml Results called to [id number] by MADELAINEAGTian 10/24/18 0108Critical results verified and read back [...] into account the patients history. BASIC METABOLIC [id number] 01:05:00* Test Item Value Reference Range Interpretation Comments SODIUM (test code = NA) 138 mmol/L 136-145 N RESU LT VERIFIED BY REPEAT ANALYSIS POTASSIUM (test code = K) 7.2 mmol/L 3.5-5.1 Re sults called to [id number] by [email or web address] 10/24/18 0105Critical results verified and read back by Nurse? Y CHLORIDE (test code = CL) 104.0 mmol/L 98-107 N CARBON DIOXIDE (test code = CO2) 26.0 mmol/L 21-32 N ANION GAP (test code = GAP) 15.2 10-20 N GLUCOSE (test code = GLU) 54 mg/dL 74-106 L BLOOD UREA NITROGEN (test code = BUN) 79 mg/dL 7-18 H GLOMERULAR FILTRATION RATE (test code = GFR) 14 mL/min >=60 Estimated GFR by using Modified MDRD formula.Chronic kidney disease is defined as either kidney damageor GFR <60 mL/min/1.73 m2 for >3 months. CREATININE (test code = CREAT) 3.40 mg/dL 0.55-1.02 H Note change in reference range due to change in reagent. BUN/CREATININE RATIO (test code = BUN/CREA) 23.2 10-20 H CALCIUM (test code = CA) 9.2 mg/dL 8.5-10.1 N HEPATIC FUNCTION [id number] 01:05:00* Test Item Value Reference Range Interpretation Comments TOTAL PROTEIN (test code = PROT) 5.7 gram/dL 6.4-8.2 L ALBUMIN (test code = ALB) 1.1 g/dL 3.4-5.0 L GLOBULIN (test code = GLOB) 4.6 gram/dL 2.7-4.2 H ALBUMIN/GLOBULIN RATIO (test code = A/G) 0.2 0.75-1.50 L BILIRUBIN TOTAL (test code = BILT) 2.50 mg/dL 0.0-1.0 H BILIRUBIN DIRECT (test code = BILD) 2.11 mg/dL 0.0-0.20 H SGOT/AST (test code = AST) 58 IUnit/L 15-37 H SGPT/ALT (test code = ALT) 45 IUnit/L 12-78 N ALKALINE PHOSPHATASE TOTAL (test code = ALKP) 372 IUnit/L 45-117 H Note change in reference range due to change in reagent. [id number] 01:05:00* Test Item Value Reference Range Interpretation Comments LIPASE (test code = LIP) 121 U/L 73.0-393.0 N [id number] 01:05:00* Test Item Value Reference Range Interpretation Comments TROPONIN-I (test code = TROPI) <0.015 ng/mL 0-0.045 N LACTIC [id number] 01:05:00* Test Item Value Reference Range Interpretation Comments LACTIC ACID (test code = LACT) 2.2 mmol/L 0.4-1.9 HH Results called to [id number] by V.LAB.AG1 10/24/18 0105Critical results verified and read back by Nurse? Y - XR CHEST 1 [id number] 01:02:00 FAX: Jessica Kumar MD [phone] [place]: B St: REG Name: Jerry SIOBHAN RAINES [facility] : [birth year] Age/S: 53/F [address] [facility] Unit #: [id number] Loc: [place] [address] Phys: Jessica Kumar MD Acct: [id number] Dis Date: Status: REG ER PHONE #: [phone] Exam Date: 10/24/201851 FAX #: [phone] Reason: CODE SEPSIS EXAMS: CPT CODE: [id number] XR CHEST 1 V [id number] - XR CHEST 1 V, 10/24/2018 12:05 AM Reason For Examination: CODE SEPSIS Comparison: Sep Location: R16 Findings L UNGS: Mild vascular congestion/edema. Exam findings limited by low lung volumes. There is retrocardiac density which appears relatively well -defined measuring approximately 3.7 cm nonspecific but should be further evaluated on outpatient/nonemergent CT of the chest to exclude the presenc e of an underlying lesion. PLEURA: No pleural effusions CARDIOMEDIASTINAL SILHOUETTE Unremarkable IMPRESSION: Mild vascular congestion/edema. Exam findings limite d by low lung volumes. There is retrocardiac [...] PAGE 1 Si gned Report CBC W/MANUAL [id number] 01:00:00* Test Item Value Reference Range Interpretation Comments WHITE BLOOD CELL (test code = WBC) 11.7 K/mm3 4.5-12.5 N RED BLOOD CELL (test code = RBC) 3.73 mill/mm3 3.7-5.2 N HEMOGLOBIN (test code = HGB) 9.9 gram/dL 11.5-15.5 L HEMATOCRIT (test code = HCT) 32.4 % 36.0-46.0 L MEAN CELL VOLUME (test code = MCV) 86.9 fL 80-98 N MEAN CELL HGB (test code = MCH) 26.5 picogram 27.0-33.0 L MEAN CELL HGB CONCETRATION (test code = MCHC) 30.6 gram/dL 33.0-36. 0 L RED CELL DISTRIBUTION WIDTH (test code = RDW) 17.3 % 11.6-16. 2 H RED CELL DISTRIBUTION WIDTH SD (test code = RDW-SD) 52.8 fL 37 .0-51.0 H PLATELET COUNT (test code = PLT) 63 K/mm3 150-450 L MEAN PLATELET VOLUME (test code = MPV) TEST NOT PERFORMED fL 6.7-11 .0 IMMATURE GRANULOCYTE % (test code = IG%) 0.4 % 0.0-5.0 N NUCLEATED RBC % (test code = NRBC%) 0.0 % 0-0 N NEUTROPHIL # (test code = NT#) 10.13 K/mm3 1.8-7.7 H IMMATURE GRANULOCYTE # (test code = IG#) 0.05 x10 3/uL 0-0.03 H LYMPHOCYTE # (test code = LY#) 1.05 K/mm3 1.0-5.0 N MONOCYTE # (test code = MO#) 0.40 K/mm3 0-0.8 N EOSINOPHIL # (test code = EO#) 0.01 K/mm3 0.0-0.5 N BASOPHIL # (test code = BA#) 0.01 K/mm3 0.0-0.2 N NUCLEATED RBC # (test code = NRBC#) 0.00 K/mm3 0.0-0.1 N MANUAL DIFF REQUIRED (test code = MDIFF) YES STAIN ACCEPTABILITY (test code = STN ACCEPTABLE) TOTAL CELLS COUNTED (test code = TCC) #CELLS SEGMENTED NEUTROPHILS (test code = SEG) % 39-69 LYMPHOCYTE (test code = LYMPH) % 25-55 MONOCYTE (test code = MON) % 0-10 EOSINOPHIL (test code = EOS) % 0.0-5.0 CABOT RINGS (test code = CAB) MORPHOLOGY COMMENT (test code = MOC) PLATELET ESTIMATE (test code = PLTEST) PLATELET MORPHOLOGY (test code = PLTMORPH) CBC W/MANUAL [id number] 01:00:00* Test Item Value Reference Range Interpretation Comments WHITE BLOOD CELL (test code = WBC) 11.7 K/mm3 4.5-12.5 N RED BLOOD CELL (test code = RBC) 3.73 mill/mm3 3.7-5.2 N HEMOGLOBIN (test code = HGB) 9.9 gram/dL 11.5-15.5 L HEMATOCRIT (test code = HCT) 32.4 % 36.0-46.0 L MEAN CELL VOLUME (test code = MCV) 86.9 fL 80-98 N MEAN CELL HGB (test code = MCH) 26.5 picogram 27.0-33.0 L MEAN CELL HGB CONCETRATION (test code = MCHC) 30.6 gram/dL 33.0-36. 0 L RED CELL DISTRIBUTION WIDTH (test code = RDW) 17.3 % 11.6-16. 2 H RED CELL DISTRIBUTION WIDTH SD (test code = RDW-SD) 52.8 fL 37 .0-51.0 H PLATELET COUNT (test code = PLT) 63 K/mm3 150-450 L MEAN PLATELET VOLUME (test code = MPV) TEST NOT PERFORMED fL 6.7-11 .0 IMMATURE GRANULOCYTE % (test code = IG%) 0.4 % 0.0-5.0 N NUCLEATED RBC % (test code = NRBC%) 0.0 % 0-0 N NEUTROPHIL # (test code = NT#) 10.13 K/mm3 1.8-7.7 H IMMATURE GRANULOCYTE # (test code = IG#) 0.05 x10 3/uL 0-0.03 H LYMPHOCYTE # (test code = LY#) 1.05 K/mm3 1.0-5.0 N MONOCYTE # (test code = MO#) 0.40 K/mm3 0-0.8 N EOSINOPHIL # (test code = EO#) 0.01 K/mm3 0.0-0.5 N BASOPHIL # (test code = BA#) 0.01 K/mm3 0.0-0.2 N NUCLEATED RBC # (test code = NRBC#) 0.00 K/mm3 0.0-0.1 N MANUAL DIFF REQUIRED (test code = MDIFF) YES STAIN ACCEPTABILITY (test code = STN ACCEPTABLE) TOTAL CELLS COUNTED (test code = TCC) #CELLS SEGMENTED NEUTROPHILS (test code = SEG) % 39-69 LYMPHOCYTE (test code = LYMPH) % 25-55 MONOCYTE (test code = MON) % 0-10 EOSINOPHIL (test code = EOS) % 0.0-5.0 CABOT RINGS (test code = CAB) MORPHOLOGY COMMENT (test code = MOC) PLATELET ESTIMATE (test code = PLTEST) PLATELET MORPHOLOGY (test code = PLTMORPH) CBC W/MANUAL [id number] 01:00:00* Test Item Value Reference Range Interpretation Comments WHITE BLOOD CELL (test code = WBC) 11.7 K/mm3 4.5-12.5 N RED BLOOD CELL (test code = RBC) 3.73 mill/mm3 3.7-5.2 N HEMOGLOBIN (test code = HGB) 9.9 gram/dL 11.5-15.5 L HEMATOCRIT (test code = HCT) 32.4 % 36.0-46.0 L MEAN CELL VOLUME (test code = MCV) 86.9 fL 80-98 N MEAN CELL HGB (test code = MCH) 26.5 picogram 27.0-33.0 L MEAN CELL HGB CONCETRATION (test code = MCHC) 30.6 gram/dL 33.0-36. 0 L RED CELL DISTRIBUTION WIDTH (test code = RDW) 17.3 % 11.6-16. 2 H RED CELL DISTRIBUTION WIDTH SD (test code = RDW-SD) 52.8 fL 37 .0-51.0 H PLATELET COUNT (test code = PLT) 63 K/mm3 150-450 L MEAN PLATELET VOLUME (test code = MPV) TEST NOT PERFORMED fL 6.7-11 .0 IMMATURE GRANULOCYTE % (test code = IG%) 0.4 % 0.0-5.0 N NUCLEATED RBC % (test code = NRBC%) 0.0 % 0-0 N NEUTROPHIL # (test code = NT#) 10.13 K/mm3 1.8-7.7 H IMMATURE GRANULOCYTE # (test code = IG#) 0.05 x10 3/uL 0-0.03 H LYMPHOCYTE # (test code = LY#) 1.05 K/mm3 1.0-5.0 N MONOCYTE # (test code = MO#) 0.40 K/mm3 0-0.8 N EOSINOPHIL # (test code = EO#) 0.01 K/mm3 0.0-0.5 N BASOPHIL # (test code = BA#) 0.01 K/mm3 0.0-0.2 N NUCLEATED RBC # (test code = NRBC#) 0.00 K/mm3 0.0-0.1 N MANUAL DIFF REQUIRED (test code = MDIFF) YES STAIN ACCEPTABILITY (test code = STN ACCEPTABLE) TOTAL CELLS COUNTED (test code = TCC) #CELLS SEGMENTED NEUTROPHILS (test code = SEG) % 39-69 LYMPHOCYTE (test code = LYMPH) % 25-55 MONOCYTE (test code = MON) % 0-10 EOSINOPHIL (test code = EOS) % 0.0-5.0 MORPHOLOGY COMMENT (test code = MOC) PLATELET ESTIMATE (test code = PLTEST) PLATELET MORPHOLOGY (test code = PLTMORPH) CBC W/MANUAL [id number] 01:00:00* Test Item Value Reference Range Interpretation Comments WHITE BLOOD CELL (test code = WBC) 11.7 K/mm3 4.5-12.5 N RED BLOOD CELL (test code = RBC) 3.73 mill/mm3 3.7-5.2 N HEMOGLOBIN (test code = HGB) 9.9 gram/dL 11.5-15.5 L HEMATOCRIT (test code = HCT) 32.4 % 36.0-46.0 L MEAN CELL VOLUME (test code = MCV) 86.9 fL 80-98 N MEAN CELL HGB (test code = MCH) 26.5 picogram 27.0-33.0 L MEAN CELL HGB CONCETRATION (test code = MCHC) 30.6 gram/dL 33.0-36. 0 L RED CELL DISTRIBUTION WIDTH (test code = RDW) 17.3 % 11.6-16. 2 H RED CELL DISTRIBUTION WIDTH SD (test code = RDW-SD) 52.8 fL 37 .0-51.0 H PLATELET COUNT (test code = PLT) 63 K/mm3 150-450 L MEAN PLATELET VOLUME (test code = MPV) TEST NOT PERFORMED fL 6.7-11 .0 IMMATURE GRANULOCYTE % (test code = IG%) 0.4 % 0.0-5.0 N NUCLEATED RBC % (test code = NRBC%) 0.0 % 0-0 N NEUTROPHIL # (test code = NT#) 10.13 K/mm3 1.8-7.7 H IMMATURE GRANULOCYTE # (test code = IG#) 0.05 x10 3/uL 0-0.03 H LYMPHOCYTE # (test code = LY#) 1.05 K/mm3 1.0-5.0 N MONOCYTE # (test code = MO#) 0.40 K/mm3 0-0.8 N EOSINOPHIL # (test code = EO#) 0.01 K/mm3 0.0-0.5 N BASOPHIL # (test code = BA#) 0.01 K/mm3 0.0-0.2 N NUCLEATED RBC # (test code = NRBC#) 0.00 K/mm3 0.0-0.1 N MANUAL DIFF REQUIRED (test code = MDIFF) YES STAIN ACCEPTABILITY (test code = STN ACCEPTABLE) TOTAL CELLS COUNTED (test code = TCC) #CELLS SEGMENTED NEUTROPHILS (test code = SEG) % 39-69 LYMPHOCYTE (test code = LYMPH) % 25-55 MONOCYTE (test code = MON) % 0-10 MORPHOLOGY COMMENT (test code = MOC) PLATELET ESTIMATE (test code = PLTEST) PLATELET MORPHOLOGY (test code = PLTMORPH) CBC W/MANUAL [id number] 01:00:00* Test Item Value Reference Range Interpretation Comments WHITE BLOOD CELL (test code = WBC) 11.7 K/mm3 4.5-12.5 N RED BLOOD CELL (test code = RBC) 3.73 mill/mm3 3.7-5.2 N HEMOGLOBIN (test code = HGB) 9.9 gram/dL 11.5-15.5 L HEMATOCRIT (test code = HCT) 32.4 % 36.0-46.0 L MEAN CELL VOLUME (test code = MCV) 86.9 fL 80-98 N MEAN CELL HGB (test code = MCH) 26.5 picogram 27.0-33.0 L MEAN CELL HGB CONCETRATION (test code = MCHC) 30.6 gram/dL 33.0-36. 0 L RED CELL DISTRIBUTION WIDTH (test code = RDW) 17.3 % 11.6-16. 2 H RED CELL DISTRIBUTION WIDTH SD (test code = RDW-SD) 52.8 fL 37 .0-51.0 H PLATELET COUNT (test code = PLT) 63 K/mm3 150-450 L MEAN PLATELET VOLUME (test code = MPV) TEST NOT PERFORMED fL 6.7-11 .0 IMMATURE GRANULOCYTE % (test code = IG%) 0.4 % 0.0-5.0 N NUCLEATED RBC % (test code = NRBC%) 0.0 % 0-0 N NEUTROPHIL # (test code = NT#) 10.13 K/mm3 1.8-7.7 H IMMATURE GRANULOCYTE # (test code = IG#) 0.05 x10 3/uL 0-0.03 H LYMPHOCYTE # (test code = LY#) 1.05 K/mm3 1.0-5.0 N MONOCYTE # (test code = MO#) 0.40 K/mm3 0-0.8 N EOSINOPHIL # (test code = EO#) 0.01 K/mm3 0.0-0.5 N BASOPHIL # (test code = BA#) 0.01 K/mm3 0.0-0.2 N NUCLEATED RBC # (test code = NRBC#) 0.00 K/mm3 0.0-0.1 N MANUAL DIFF REQUIRED (test code = MDIFF) YES STAIN ACCEPTABILITY (test code = STN ACCEPTABLE) TOTAL CELLS COUNTED (test code = TCC) #CELLS SEGMENTED NEUTROPHILS (test code = SEG) % 39-69 LYMPHOCYTE (test code = LYMPH) % 25-55 MONOCYTE (test code = MON) % 0-10 EOSINOPHIL (test code = EOS) % 0.0-5.0 CABOT RINGS (test code = CAB) MORPHOLOGY COMMENT (test code = MOC) PLATELET ESTIMATE (test code = PLTEST) PLATELET MORPHOLOGY (test code = PLTMORPH) BASIC METABOLIC [id number] 09:38:00* Test Item Value Reference Range Interpretation Comments SODIUM (test code = NA) 142 mmol/L 136-145 N POTASSIUM (test code = K) 3.2 mmol/L 3.5-5.1 L CHLORIDE (test code = CL) 106.0 mmol/L 98-107 N CARBON DIOXIDE (test code = CO2) 27.0 mmol/L 21-32 N ANION GAP (test code = GAP) 12.2 10-20 N GLUCOSE (test code = GLU) 101 mg/dL 74-106 N BLOOD UREA NITROGEN (test code = BUN) 53 mg/dL 7-18 H GLOMERULAR FILTRATION RATE (test code = GFR) 36 mL/min >=60 Estimated GFR by using Modified MDRD formula.Chronic kidney disease is defined as either kidney damageor GFR <60 mL/min/1.73 m2 for >3 months. CREATININE (test code = CREAT) 1.50 mg/dL 0.55-1.02 H Note change in reference range due to change in reagent. BUN/CREATININE RATIO (test code = BUN/CREA) 35.3 10-20 H CALCIUM (test code = CA) 8.8 mg/dL 8.5-10.1 N BASIC METABOLIC [id number] 09:30:00* Test Item Value Reference Range Interpretation Comments SODIUM (test code = NA) 142 mmol/L 136-145 N POTASSIUM (test code = K) 3.2 mmol/L 3.5-5.1 L CHLORIDE (test code = CL) 106.0 mmol/L 98-107 N CARBON DIOXIDE (test code = CO2) mmol/L 21-32 ANION GAP (test code = GAP) 10-20 GLUCOSE (test code = GLU) mg/dL 74-106 BLOOD UREA NITROGEN (test code = BUN) mg/dL 7-18 GLOMERULAR FILTRATION RATE (test code = GFR) mL/min >=60 CREATININE (test code = CREAT) mg/dL 0.55-1.02 BUN/CREATININE RATIO (test code = BUN/CREA) 10-20 CALCIUM (test code = CA) mg/dL 8.5-10.1 BASIC METABOLIC [id number] 00:05:00* Test Item Value Reference Range Interpretation Comments SODIUM (test code = NA) 144 mmol/L 136-145 N POTASSIUM (test code = K) 3.5 mmol/L 3.5-5.1 N CHLORIDE (test code = CL) 108.0 mmol/L 98-107 H CARBON DIOXIDE (test code = CO2) 28.0 mmol/L 21-32 N ANION GAP (test code = GAP) 11.5 10-20 N GLUCOSE (test code = GLU) 103 mg/dL 74-106 N BLOOD UREA NITROGEN (test code = BUN) 55 mg/dL 7-18 H GLOMERULAR FILTRATION RATE (test code = GFR) 34 mL/min >=60 Estimated GFR by using Modified MDRD formula.Chronic kidney disease is defined as either kidney damageor GFR <60 mL/min/1.73 m2 for >3 months. CREATININE (test code = CREAT) 1.60 mg/dL 0.55-1.02 H Note change in reference range due to change in reagent. BUN/CREATININE RATIO (test code = BUN/CREA) 34.4 10-20 H CALCIUM (test code = CA) 8.8 mg/dL 8.5-10.1 N PATIENT IS WITH THERAPY AT THE MOMENT, ASKED TO COME BACKLATER SABINE Garcia OF [facility]. 10/13/18 1052BASIC METABOLIC [id number] 00:02:00* Test Item Value Reference Range Interpretation Comments SODIUM (test code = NA) 144 mmol/L 136-145 N POTASSIUM (test code = K) 3.5 mmol/L 3.5-5.1 N CHLORIDE (test code = CL) 108.0 mmol/L 98-107 H CARBON DIOXIDE (test code = CO2) mmol/L 21-32 ANION GAP (test code = GAP) 10-20 GLUCOSE (test code = GLU) mg/dL 74-106 BLOOD UREA NITROGEN (test code = BUN) mg/dL 7-18 GLOMERULAR FILTRATION RATE (test code = GFR) mL/min >=60 CREATININE (test code = CREAT) mg/dL 0.55-1.02 BUN/CREATININE RATIO (test code = BUN/CREA) 10-20 CALCIUM (test code = CA) 8.8 mg/dL 8.5-10.1 N PATIENT IS WITH THERAPY AT THE MOMENT, ASKED TO COME BACKLATER SABINE Garcia OF [facility]. 10/13/18 1052BASIC METABOLIC [id number] 09:35:00* Test Item Value Reference Range Interpretation Comments SODIUM (test code = NA) 142 mmol/L 136-145 N POTASSIUM (test code = K) 3.7 mmol/L 3.5-5.1 N CHLORIDE (test code = CL) 108.0 mmol/L 98-107 H CARBON DIOXIDE (test code = CO2) 24.0 mmol/L 21-32 N ANION GAP (test code = GAP) 13.7 10-20 N GLUCOSE (test code = GLU) 100 mg/dL 74-106 N BLOOD UREA NITROGEN (test code = BUN) 61 mg/dL 7-18 H GLOMERULAR FILTRATION RATE (test code = GFR) 29 mL/min >=60 Estimated GFR by using Modified MDRD formula.Chronic kidney disease is defined as either kidney damageor GFR <60 mL/min/1.73 m2 for >3 months. CREATININE (test code = CREAT) 1.80 mg/dL 0.55-1.02 H Note change in reference range due to change in reagent. BUN/CREATININE RATIO (test code = BUN/CREA) 33.9 10-20 H CALCIUM (test code = CA) 8.7 mg/dL 8.5-10.1 N BASIC METABOLIC [id number] 09:29:00* Test Item Value Reference Range Interpretation Comments SODIUM (test code = NA) 142 mmol/L 136-145 N POTASSIUM (test code = K) 3.7 mmol/L 3.5-5.1 N CHLORIDE (test code = CL) 108.0 mmol/L 98-107 H CARBON DIOXIDE (test code = CO2) mmol/L 21-32 ANION GAP (test code = GAP) 10-20 GLUCOSE (test code = GLU) mg/dL 74-106 BLOOD UREA NITROGEN (test code = BUN) mg/dL 7-18 GLOMERULAR FILTRATION RATE (test code = GFR) mL/min >=60 CREATININE (test code = CREAT) mg/dL 0.55-1.02 BUN/CREATININE RATIO (test code = BUN/CREA) 10-20 CALCIUM (test code = CA) 8.7 mg/dL 8.5-10.1 N CBC W/MANUAL [id number] 09:12:00* Test Item Value Reference Range Interpretation Comments WHITE BLOOD CELL (test code = WBC) 4.6 K/mm3 4.5-12.5 N RED BLOOD CELL (test code = RBC) 3.53 mill/mm3 3.7-5.2 L HEMOGLOBIN (test code = HGB) 9.4 gram/dL 11.5-15.5 L HEMATOCRIT (test code = HCT) 30.7 % 36.0-46.0 L MEAN CELL VOLUME (test code = MCV) 87.0 fL 80-98 N MEAN CELL HGB (test code = MCH) 26.6 picogram 27.0-33.0 L MEAN CELL HGB CONCETRATION (test code = MCHC) 30.6 gram/dL 33.0-36. 0 L RED CELL DISTRIBUTION WIDTH (test code = RDW) 18.3 % 11.6-16. 2 H RED CELL DISTRIBUTION WIDTH SD (test code = RDW-SD) 56.4 fL 37 .0-51.0 H PLATELET COUNT (test code = PLT) 52 K/mm3 150-450 L MEAN PLATELET VOLUME (test code = MPV) 12.9 fL 6.7-11.0 H IMMATURE GRANULOCYTE % (test code = IG%) 0.6 % 0.0-5.0 N NUCLEATED RBC % (test code = NRBC%) 0.0 % 0-0 N NEUTROPHIL # (test code = NT#) 3.56 K/mm3 1.8-7.7 N IMMATURE GRANULOCYTE # (test code = IG#) 0.03 x10 3/uL 0-0.03 N LYMPHOCYTE # (test code = LY#) 0.70 K/mm3 1.0-5.0 L MONOCYTE # (test code = MO#) 0.34 K/mm3 0-0.8 N EOSINOPHIL # (test code = EO#) 0.01 K/mm3 0.0-0.5 N BASOPHIL # (test code = BA#) 0.00 K/mm3 0.0-0.2 N NUCLEATED RBC # (test code = NRBC#) 0.00 K/mm3 0.0-0.1 N MANUAL DIFF REQUIRED (test code = MDIFF) YES STAIN ACCEPTABILITY (test code = STN ACCEPTABLE) STAIN ACCEPTABLE TOTAL CELLS COUNTED (test code = TCC) 114 #CELLS SEGMENTED NEUTROPHILS (test code = SEG) 94.7 % 39-69 H BAND NEUTROPHIL (test code = BAND) 0 % 0-10 N LYMPHOCYTE (test code = LYMPH) 2.6 % 25-55 L REACTIVE LYMPH (test code = RELYMPH) 0 % MONOCYTE (test code = MON) 0.9 % 0-10 N EOSINOPHIL (test code = EOS) 0.9 % 0.0-5.0 N BASOPHIL (test code = BASO) 0 % 0-1.0 N METAMYELOCYTE (test code = META) 0 % 0-0 N MYELOCYTE (test code = MYELO) 0.9 % 0.0-0.0 H PROMYELOCYTE (test code = PROM) 0 % 0-0 N POIKILOCYTOSIS (test code = POIK) 1+ ANISOCYTOSIS (test code = ANISO) 1+ MACROCYTOSIS (test code = MACR) 1+ JAYLA CELLS (test code = JAYLA) 1+ NONE PLATELET ESTIMATE (test code = PLTEST) DECREASED PLATELET MORPHOLOGY (test code = PLTMORPH) NORMAL IMMATURE FORMS (test code = IMMAT) 0 % CBC W/MANUAL [id number] 08:28:00* Test Item Value Reference Range Interpretation Comments WHITE BLOOD CELL (test code = WBC) 4.6 K/mm3 4.5-12.5 N RED BLOOD CELL (test code = RBC) 3.53 mill/mm3 3.7-5.2 L HEMOGLOBIN (test code = HGB) 9.4 gram/dL 11.5-15.5 L HEMATOCRIT (test code = HCT) 30.7 % 36.0-46.0 L MEAN CELL VOLUME (test code = MCV) 87.0 fL 80-98 N MEAN CELL HGB (test code = MCH) 26.6 picogram 27.0-33.0 L MEAN CELL HGB CONCETRATION (test code = MCHC) 30.6 gram/dL 33.0-36. 0 L RED CELL DISTRIBUTION WIDTH (test code = RDW) 18.3 % 11.6-16. 2 H RED CELL DISTRIBUTION WIDTH SD (test code = RDW-SD) 56.4 fL 37 .0-51.0 H PLATELET COUNT (test code = PLT) 52 K/mm3 150-450 L MEAN PLATELET VOLUME (test code = MPV) 12.9 fL 6.7-11.0 H IMMATURE GRANULOCYTE % (test code = IG%) 0.6 % 0.0-5.0 N NUCLEATED RBC % (test code = NRBC%) 0.0 % 0-0 N NEUTROPHIL # (test code = NT#) 3.56 K/mm3 1.8-7.7 N IMMATURE GRANULOCYTE # (test code = IG#) 0.03 x10 3/uL 0-0.03 N LYMPHOCYTE # (test code = LY#) 0.70 K/mm3 1.0-5.0 L MONOCYTE # (test code = MO#) 0.34 K/mm3 0-0.8 N EOSINOPHIL # (test code = EO#) 0.01 K/mm3 0.0-0.5 N BASOPHIL # (test code = BA#) 0.00 K/mm3 0.0-0.2 N NUCLEATED RBC # (test code = NRBC#) 0.00 K/mm3 0.0-0.1 N MANUAL DIFF REQUIRED (test code = MDIFF) YES STAIN ACCEPTABILITY (test code = STN ACCEPTABLE) TOTAL CELLS COUNTED (test code = TCC) #CELLS SEGMENTED NEUTROPHILS (test code = SEG) % 39-69 LYMPHOCYTE (test code = LYMPH) % 25-55 MONOCYTE (test code = MON) % 0-10 MORPHOLOGY COMMENT (test code = MOC) PLATELET ESTIMATE (test code = PLTEST) PLATELET MORPHOLOGY (test code = PLTMORPH) CBC W/MANUAL [id number] 08:26:00* Test Item Value Reference Range Interpretation Comments WHITE BLOOD CELL (test code = WBC) 4.6 K/mm3 4.5-12.5 N RED BLOOD CELL (test code = RBC) 3.53 mill/mm3 3.7-5.2 L HEMOGLOBIN (test code = HGB) 9.4 gram/dL 11.5-15.5 L HEMATOCRIT (test code = HCT) 30.7 % 36.0-46.0 L MEAN CELL VOLUME (test code = MCV) 87.0 fL 80-98 N MEAN CELL HGB (test code = MCH) 26.6 picogram 27.0-33.0 L MEAN CELL HGB CONCETRATION (test code = MCHC) 30.6 gram/dL 33.0-36. 0 L RED CELL DISTRIBUTION WIDTH (test code = RDW) 18.3 % 11.6-16. 2 H RED CELL DISTRIBUTION WIDTH SD (test code = RDW-SD) 56.4 fL 37 .0-51.0 H PLATELET COUNT (test code = PLT) 52 K/mm3 150-450 L MEAN PLATELET VOLUME (test code = MPV) 12.9 fL 6.7-11.0 H IMMATURE GRANULOCYTE % (test code = IG%) 0.6 % 0.0-5.0 N NUCLEATED RBC % (test code = NRBC%) 0.0 % 0-0 N NEUTROPHIL # (test code = NT#) 3.56 K/mm3 1.8-7.7 N IMMATURE GRANULOCYTE # (test code = IG#) 0.03 x10 3/uL 0-0.03 N LYMPHOCYTE # (test code = LY#) 0.70 K/mm3 1.0-5.0 L MONOCYTE # (test code = MO#) 0.34 K/mm3 0-0.8 N EOSINOPHIL # (test code = EO#) 0.01 K/mm3 0.0-0.5 N BASOPHIL # (test code = BA#) 0.00 K/mm3 0.0-0.2 N NUCLEATED RBC # (test code = NRBC#) 0.00 K/mm3 0.0-0.1 N MANUAL DIFF REQUIRED (test code = MDIFF) YES STAIN ACCEPTABILITY (test code = STN ACCEPTABLE) TOTAL CELLS COUNTED (test code = TCC) #CELLS SEGMENTED NEUTROPHILS (test code = SEG) % 39-69 LYMPHOCYTE (test code = LYMPH) % 25-55 MONOCYTE (test code = MON) % 0-10 EOSINOPHIL (test code = EOS) % 0.0-5.0 CABOT RINGS (test code = CAB) MORPHOLOGY COMMENT (test code = MOC) PLATELET ESTIMATE (test code = PLTEST) PLATELET MORPHOLOGY (test code = PLTMORPH) CBC W/MANUAL [id number] 08:26:00* Test Item Value Reference Range Interpretation Comments WHITE BLOOD CELL (test code = WBC) 4.6 K/mm3 4.5-12.5 N RED BLOOD CELL (test code = RBC) 3.53 mill/mm3 3.7-5.2 L HEMOGLOBIN (test code = HGB) 9.4 gram/dL 11.5-15.5 L HEMATOCRIT (test code = HCT) 30.7 % 36.0-46.0 L MEAN CELL VOLUME (test code = MCV) 87.0 fL 80-98 N MEAN CELL HGB (test code = MCH) 26.6 picogram 27.0-33.0 L MEAN CELL HGB CONCETRATION (test code = MCHC) 30.6 gram/dL 33.0-36. 0 L RED CELL DISTRIBUTION WIDTH (test code = RDW) 18.3 % 11.6-16. 2 H RED CELL DISTRIBUTION WIDTH SD (test code = RDW-SD) 56.4 fL 37 .0-51.0 H PLATELET COUNT (test code = PLT) 52 K/mm3 150-450 L MEAN PLATELET VOLUME (test code = MPV) 12.9 fL 6.7-11.0 H IMMATURE GRANULOCYTE % (test code = IG%) 0.6 % 0.0-5.0 N NUCLEATED RBC % (test code = NRBC%) 0.0 % 0-0 N NEUTROPHIL # (test code = NT#) 3.56 K/mm3 1.8-7.7 N IMMATURE GRANULOCYTE # (test code = IG#) 0.03 x10 3/uL 0-0.03 N LYMPHOCYTE # (test code = LY#) 0.70 K/mm3 1.0-5.0 L MONOCYTE # (test code = MO#) 0.34 K/mm3 0-0.8 N EOSINOPHIL # (test code = EO#) 0.01 K/mm3 0.0-0.5 N BASOPHIL # (test code = BA#) 0.00 K/mm3 0.0-0.2 N NUCLEATED RBC # (test code = NRBC#) 0.00 K/mm3 0.0-0.1 N MANUAL DIFF REQUIRED (test code = MDIFF) YES STAIN ACCEPTABILITY (test code = STN ACCEPTABLE) TOTAL CELLS COUNTED (test code = TCC) #CELLS SEGMENTED NEUTROPHILS (test code = SEG) % 39-69 LYMPHOCYTE (test code = LYMPH) % 25-55 MONOCYTE (test code = MON) % 0-10 EOSINOPHIL (test code = EOS) % 0.0-5.0 CABOT RINGS (test code = CAB) MORPHOLOGY COMMENT (test code = MOC) PLATELET ESTIMATE (test code = PLTEST) PLATELET MORPHOLOGY (test code = PLTMORPH) CBC W/MANUAL [id number] 08:26:00* Test Item Value Reference Range Interpretation Comments WHITE BLOOD CELL (test code = WBC) 4.6 K/mm3 4.5-12.5 N RED BLOOD CELL (test code = RBC) 3.53 mill/mm3 3.7-5.2 L HEMOGLOBIN (test code = HGB) 9.4 gram/dL 11.5-15.5 L HEMATOCRIT (test code = HCT) 30.7 % 36.0-46.0 L MEAN CELL VOLUME (test code = MCV) 87.0 fL 80-98 N MEAN CELL HGB (test code = MCH) 26.6 picogram 27.0-33.0 L MEAN CELL HGB CONCETRATION (test code = MCHC) 30.6 gram/dL 33.0-36. 0 L RED CELL DISTRIBUTION WIDTH (test code = RDW) 18.3 % 11.6-16. 2 H RED CELL DISTRIBUTION WIDTH SD (test code = RDW-SD) 56.4 fL 37 .0-51.0 H PLATELET COUNT (test code = PLT) 52 K/mm3 150-450 L MEAN PLATELET VOLUME (test code = MPV) 12.9 fL 6.7-11.0 H IMMATURE GRANULOCYTE % (test code = IG%) 0.6 % 0.0-5.0 N NUCLEATED RBC % (test code = NRBC%) 0.0 % 0-0 N NEUTROPHIL # (test code = NT#) 3.56 K/mm3 1.8-7.7 N IMMATURE GRANULOCYTE # (test code = IG#) 0.03 x10 3/uL 0-0.03 N LYMPHOCYTE # (test code = LY#) 0.70 K/mm3 1.0-5.0 L MONOCYTE # (test code = MO#) 0.34 K/mm3 0-0.8 N EOSINOPHIL # (test code = EO#) 0.01 K/mm3 0.0-0.5 N BASOPHIL # (test code = BA#) 0.00 K/mm3 0.0-0.2 N NUCLEATED RBC # (test code = NRBC#) 0.00 K/mm3 0.0-0.1 N MANUAL DIFF REQUIRED (test code = MDIFF) YES STAIN ACCEPTABILITY (test code = STN ACCEPTABLE) TOTAL CELLS COUNTED (test code = TCC) #CELLS SEGMENTED NEUTROPHILS (test code = SEG) % 39-69 LYMPHOCYTE (test code = LYMPH) % 25-55 MONOCYTE (test code = MON) % 0-10 EOSINOPHIL (test code = EOS) % 0.0-5.0 MORPHOLOGY COMMENT (test code = MOC) PLATELET ESTIMATE (test code = PLTEST) PLATELET MORPHOLOGY (test code = PLTMORPH) CBC W/MANUAL [id number] 08:26:00* Test Item Value Reference Range Interpretation Comments WHITE BLOOD CELL (test code = WBC) 4.6 K/mm3 4.5-12.5 N RED BLOOD CELL (test code = RBC) 3.53 mill/mm3 3.7-5.2 L HEMOGLOBIN (test code = HGB) 9.4 gram/dL 11.5-15.5 L HEMATOCRIT (test code = HCT) 30.7 % 36.0-46.0 L MEAN CELL VOLUME (test code = MCV) 87.0 fL 80-98 N MEAN CELL HGB (test code = MCH) 26.6 picogram 27.0-33.0 L MEAN CELL HGB CONCETRATION (test code = MCHC) 30.6 gram/dL 33.0-36. 0 L RED CELL DISTRIBUTION WIDTH (test code = RDW) 18.3 % 11.6-16. 2 H RED CELL DISTRIBUTION WIDTH SD (test code = RDW-SD) 56.4 fL 37 .0-51.0 H PLATELET COUNT (test code = PLT) 52 K/mm3 150-450 L MEAN PLATELET VOLUME (test code = MPV) 12.9 fL 6.7-11.0 H IMMATURE GRANULOCYTE % (test code = IG%) 0.6 % 0.0-5.0 N NUCLEATED RBC % (test code = NRBC%) 0.0 % 0-0 N NEUTROPHIL # (test code = NT#) 3.56 K/mm3 1.8-7.7 N IMMATURE GRANULOCYTE # (test code = IG#) 0.03 x10 3/uL 0-0.03 N LYMPHOCYTE # (test code = LY#) 0.70 K/mm3 1.0-5.0 L MONOCYTE # (test code = MO#) 0.34 K/mm3 0-0.8 N EOSINOPHIL # (test code = EO#) 0.01 K/mm3 0.0-0.5 N BASOPHIL # (test code = BA#) 0.00 K/mm3 0.0-0.2 N NUCLEATED RBC # (test code = NRBC#) 0.00 K/mm3 0.0-0.1 N MANUAL DIFF REQUIRED (test code = MDIFF) YES STAIN ACCEPTABILITY (test code = STN ACCEPTABLE) TOTAL CELLS COUNTED (test code = TCC) #CELLS SEGMENTED NEUTROPHILS (test code = SEG) % 39-69 LYMPHOCYTE (test code = LYMPH) % 25-55 MONOCYTE (test code = MON) % 0-10 EOSINOPHIL (test code = EOS) % 0.0-5.0 CABOT RINGS (test code = CAB) MORPHOLOGY COMMENT (test code = MOC) PLATELET ESTIMATE (test code = PLTEST) PLATELET MORPHOLOGY (test code = PLTMORPH) VANCOMYCIN [id number] 23:23:00* Test Item Value Reference Range Interpretation Comments VANCOMYCIN TROUGH (test code = VANCT) 21.3 ug/mL 10-20 H [id number] 15:11:00* Test Item Value Reference Range Interpretation Comments GLUCOSE (test code = GLU) 64 mg/dL 74-106 L BASIC METABOLIC [id number] 07:19:00* Test Item Value Reference Range Interpretation Comments SODIUM (test code = NA) 140 mmol/L 136-145 N POTASSIUM (test code = K) 4.4 mmol/L 3.5-5.1 N CHLORIDE (test code = CL) 108.0 mmol/L 98-107 H CARBON DIOXIDE (test code = CO2) 24.0 mmol/L 21-32 N ANION GAP (test code = GAP) 12.4 10-20 N GLUCOSE (test code = GLU) 65 mg/dL 74-106 L BLOOD UREA NITROGEN (test code = BUN) 59 mg/dL 7-18 H GLOMERULAR FILTRATION RATE (test code = GFR) 29 mL/min >=60 Estimated GFR by using Modified MDRD formula.Chronic kidney disease is defined as either kidney damageor GFR <60 mL/min/1.73 m2 for >3 months. CREATININE (test code = CREAT) 1.80 mg/dL 0.55-1.02 H Note change in reference range due to change in reagent. BUN/CREATININE RATIO (test code = BUN/CREA) 32.8 10-20 H CALCIUM (test code = CA) 9.0 mg/dL 8.5-10.1 N [id number] 07:19:00* Test Item Value Reference Range Interpretation Comments PHOSPHORUS (test code = PHOS) 5.1 mg/dL 2.5-4.9 H [id number] 07:19:00* Test Item Value Reference Range Interpretation Comments MAGNESIUM (test code = MAG) 2.1 mg/dL 1.8-2.4 N CALCIUM [id number] 07:19:00* Test Item Value Reference Range Interpretation Comments CALCIUM IONIZED (test code = MARIAH) 1.38 mmol/L 1.12-1.32 H BASIC METABOLIC [id number] 07:11:00* Test Item Value Reference Range Interpretation Comments SODIUM (test code = NA) 140 mmol/L 136-145 N POTASSIUM (test code = K) 4.4 mmol/L 3.5-5.1 N CHLORIDE (test code = CL) 108.0 mmol/L 98-107 H CARBON DIOXIDE (test code = CO2) mmol/L 21-32 ANION GAP (test code = GAP) 10-20 GLUCOSE (test code = GLU) mg/dL 74-106 BLOOD UREA NITROGEN (test code = BUN) mg/dL 7-18 GLOMERULAR FILTRATION RATE (test code = GFR) mL/min >=60 CREATININE (test code = CREAT) mg/dL 0.55-1.02 BUN/CREATININE RATIO (test code = BUN/CREA) 10-20 CALCIUM (test code = CA) mg/dL 8.5-10.1 [id number] 07:11:00* Test Item Value Reference Range Interpretation Comments PHOSPHORUS (test code = PHOS) mg/dL 2.5-4.9 [id number] 07:11:00* Test Item Value Reference Range Interpretation Comments MAGNESIUM (test code = MAG) mg/dL 1.8-2.4 CALCIUM [id number] 07:11:00* Test Item Value Reference Range Interpretation Comments CALCIUM IONIZED (test code = MARIAH) 1.38 mmol/L 1.12-1.32 H BASIC METABOLIC [id number] 07:04:00* Test Item Value Reference Range Interpretation Comments SODIUM (test code = NA) mmol/L 136-145 POTASSIUM (test code = K) mmol/L 3.5-5.1 CHLORIDE (test code = CL) mmol/L 98-107 CARBON DIOXIDE (test code = CO2) mmol/L 21-32 ANION GAP (test code = GAP) 10-20 GLUCOSE (test code = GLU) mg/dL 74-106 BLOOD UREA NITROGEN (test code = BUN) mg/dL 7-18 GLOMERULAR FILTRATION RATE (test code = GFR) mL/min >=60 CREATININE (test code = CREAT) mg/dL 0.55-1.02 BUN/CREATININE RATIO (test code = BUN/CREA) 10-20 CALCIUM (test code = CA) mg/dL 8.5-10.1 [id number] 07:04:00* Test Item Value Reference Range Interpretation Comments PHOSPHORUS (test code = PHOS) mg/dL 2.5-4.9 [id number] 07:04:00* Test Item Value Reference Range Interpretation Comments MAGNESIUM (test code = MAG) mg/dL 1.8-2.4 CALCIUM [id number] 07:04:00* Test Item Value Reference Range Interpretation Comments CALCIUM IONIZED (test code = MARIAH) 1.38 mmol/L 1.12-1.32 H CBC W/AUTO [id number] 06:55:00* Test Item Value Reference Range Interpretation Comments WHITE BLOOD CELL (test code = WBC) 5.4 K/mm3 4.5-12.5 N RED BLOOD CELL (test code = RBC) 3.45 mill/mm3 3.7-5.2 L HEMOGLOBIN (test code = HGB) 9.1 gram/dL 11.5-15.5 L RESULT VERIFIED BY REPEAT ANALYSIS HEMATOCRIT (test code = HCT) 30.0 % 36.0-46.0 L MEAN CELL VOLUME (test code = MCV) 87.0 fL 80-98 N MEAN CELL HGB (test code = MCH) 26.4 picogram 27.0-33.0 L MEAN CELL HGB CONCETRATION (test code = MCHC) 30.3 gram/dL 33.0-36. 0 L RED CELL DISTRIBUTION WIDTH (test code = RDW) 18.3 % 11.6-16. 2 H RED CELL DISTRIBUTION WIDTH SD (test code = RDW-SD) 56.1 fL 37 .0-51.0 H PLATELET COUNT (test code = PLT) 62 K/mm3 150-450 L RESULT VERIFIED BY REPEAT ANALYSIS MEAN PLATELET VOLUME (test code = MPV) 11.4 fL 6.7-11.0 H NEUTROPHIL % (test code = NT%) 79.8 % 39.0-69.0 H IMMATURE GRANULOCYTE % (test code = IG%) 0.6 % 0.0-5.0 N LYMPHOCYTE % (test code = LY%) 13.1 % 25.0-55.0 L MONOCYTE % (test code = MO%) 6.3 % 0.0-10.0 N EOSINOPHIL % (test code = EO%) 0.0 % 0.0-5.0 N BASOPHIL % (test code = BA%) 0.2 % 0.0-1.0 N NUCLEATED RBC % (test code = NRBC%) 0.0 % 0-0 N NEUTROPHIL # (test code = NT#) 4.33 K/mm3 1.8-7.7 N IMMATURE GRANULOCYTE # (test code = IG#) 0.03 x10 3/uL 0-0.03 N LYMPHOCYTE # (test code = LY#) 0.71 K/mm3 1.0-5.0 L MONOCYTE # (test code = MO#) 0.34 K/mm3 0-0.8 N EOSINOPHIL # (test code = EO#) 0.00 K/mm3 0.0-0.5 N BASOPHIL # (test code = BA#) 0.01 K/mm3 0.0-0.2 N NUCLEATED RBC # (test code = NRBC#) 0.00 K/mm3 0.0-0.1 N MANUAL DIFF REQUIRED (test code = MDIFF) NO CBC W/AUTO [id number] 06:35:00* Test Item Value Reference Range Interpretation Comments WHITE BLOOD CELL (test code = WBC) 11.0 K/mm3 4.5-12.5 N RED BLOOD CELL (test code = RBC) 2.73 mill/mm3 3.7-5.2 L HEMOGLOBIN (test code = HGB) 7.0 gram/dL 11.5-15.5 L HEMATOCRIT (test code = HCT) 24.0 % 36.0-46.0 L MEAN CELL VOLUME (test code = MCV) 87.9 fL 80-98 N MEAN CELL HGB (test code = MCH) 25.6 picogram 27.0-33.0 L MEAN CELL HGB CONCETRATION (test code = MCHC) 29.2 gram/dL 33.0-36. 0 L RED CELL DISTRIBUTION WIDTH (test code = RDW) 21.0 % 11.6-16. 2 H RED CELL DISTRIBUTION WIDTH SD (test code = RDW-SD) 66.4 fL 37 .0-51.0 H PLATELET COUNT (test code = PLT) 100 K/mm3 150-450 L MEAN PLATELET VOLUME (test code = MPV) 12.7 fL 6.7-11.0 H NEUTROPHIL % (test code = NT%) 85.3 % 39.0-69.0 H IMMATURE GRANULOCYTE % (test code = IG%) 0.7 % 0.0-5.0 N LYMPHOCYTE % (test code = LY%) 8.9 % 25.0-55.0 L MONOCYTE % (test code = MO%) 5.0 % 0.0-10.0 N EOSINOPHIL % (test code = EO%) 0.0 % 0.0-5.0 N BASOPHIL % (test code = BA%) 0.1 % 0.0-1.0 N NUCLEATED RBC % (test code = NRBC%) 0.0 % 0-0 N NEUTROPHIL # (test code = NT#) 9.41 K/mm3 1.8-7.7 H IMMATURE GRANULOCYTE # (test code = IG#) 0.08 x10 3/uL 0-0.03 H LYMPHOCYTE # (test code = LY#) 0.98 K/mm3 1.0-5.0 L MONOCYTE # (test code = MO#) 0.55 K/mm3 0-0.8 N EOSINOPHIL # (test code = EO#) 0.00 K/mm3 0.0-0.5 N BASOPHIL # (test code = BA#) 0.01 K/mm3 0.0-0.2 N NUCLEATED RBC # (test code = NRBC#) 0.00 K/mm3 0.0-0.1 N MANUAL DIFF REQUIRED (test code = MDIFF) NO, ONLY SCAN NEEDED DIFFERENTIAL [id number] 06:35:00* Test Item Value Reference Range Interpretation Comments STAIN ACCEPTABILITY (test code = STN ACCEPTABLE) STAIN ACCEPTABLE POLYCHROMASIA (test code = POLC) 1+ HYPOCHROMIA (test code = HYPO) 1+ ANISOCYTOSIS (test code = ANISO) 1+ MACROCYTOSIS (test code = MACR) 1+ PLATELET ESTIMATE (test code = PLTEST) SLIGHTLY DECREASED PLATELET MORPHOLOGY (test code = PLTMORPH) SIZE VARIABLE CBC W/AUTO [id number] 06:31:00* Test Item Value Reference Range Interpretation Comments WHITE BLOOD CELL (test code = WBC) 11.0 K/mm3 4.5-12.5 N RED BLOOD CELL (test code = RBC) 2.73 mill/mm3 3.7-5.2 L HEMOGLOBIN (test code = HGB) 7.0 gram/dL 11.5-15.5 L HEMATOCRIT (test code = HCT) 24.0 % 36.0-46.0 L MEAN CELL VOLUME (test code = MCV) 87.9 fL 80-98 N MEAN CELL HGB (test code = MCH) 25.6 picogram 27.0-33.0 L MEAN CELL HGB CONCETRATION (test code = MCHC) 29.2 gram/dL 33.0-36. 0 L RED CELL DISTRIBUTION WIDTH (test code = RDW) 21.0 % 11.6-16. 2 H RED CELL DISTRIBUTION WIDTH SD (test code = RDW-SD) 66.4 fL 37 .0-51.0 H PLATELET COUNT (test code = PLT) 100 K/mm3 150-450 L MEAN PLATELET VOLUME (test code = MPV) 12.7 fL 6.7-11.0 H NEUTROPHIL % (test code = NT%) 85.3 % 39.0-69.0 H IMMATURE GRANULOCYTE % (test code = IG%) 0.7 % 0.0-5.0 N LYMPHOCYTE % (test code = LY%) 8.9 % 25.0-55.0 L MONOCYTE % (test code = MO%) 5.0 % 0.0-10.0 N EOSINOPHIL % (test code = EO%) 0.0 % 0.0-5.0 N BASOPHIL % (test code = BA%) 0.1 % 0.0-1.0 N NUCLEATED RBC % (test code = NRBC%) 0.0 % 0-0 N NEUTROPHIL # (test code = NT#) 9.41 K/mm3 1.8-7.7 H IMMATURE GRANULOCYTE # (test code = IG#) 0.08 x10 3/uL 0-0.03 H LYMPHOCYTE # (test code = LY#) 0.98 K/mm3 1.0-5.0 L MONOCYTE # (test code = MO#) 0.55 K/mm3 0-0.8 N EOSINOPHIL # (test code = EO#) 0.00 K/mm3 0.0-0.5 N BASOPHIL # (test code = BA#) 0.01 K/mm3 0.0-0.2 N NUCLEATED RBC # (test code = NRBC#) 0.00 K/mm3 0.0-0.1 N MANUAL DIFF REQUIRED (test code = MDIFF) NO, ONLY SCAN NEEDED DIFFERENTIAL [id number] 06:31:00* Test Item Value Reference Range Interpretation Comments STAIN ACCEPTABILITY (test code = STN ACCEPTABLE) MORPHOLOGY COMMENT (test code = MOC) PLATELET ESTIMATE (test code = PLTEST) PLATELET MORPHOLOGY (test code = PLTMORPH) BASIC METABOLIC [id number] 06:28:00* Test Item Value Reference Range Interpretation Comments SODIUM (test code = NA) 139 mmol/L 136-145 N POTASSIUM (test code = K) 5.1 mmol/L 3.5-5.1 N CHLORIDE (test code = CL) 108.0 mmol/L 98-107 H CARBON DIOXIDE (test code = CO2) 22.0 mmol/L 21-32 N ANION GAP (test code = GAP) 14.1 10-20 N GLUCOSE (test code = GLU) 93 mg/dL 74-106 N BLOOD UREA NITROGEN (test code = BUN) 58 mg/dL 7-18 H GLOMERULAR FILTRATION RATE (test code = GFR) 29 mL/min >=60 Estimated GFR by using Modified MDRD formula.Chronic kidney disease is defined as either kidney damageor GFR <60 mL/min/1.73 m2 for >3 months. CREATININE (test code = CREAT) 1.80 mg/dL 0.55-1.02 H Note change in reference range due to change in reagent. BUN/CREATININE RATIO (test code = BUN/CREA) 32.2 10-20 H CALCIUM (test code = CA) 9.4 mg/dL 8.5-10.1 N CBC W/AUTO [id number] 06:27:00* Test Item Value Reference Range Interpretation Comments WHITE BLOOD CELL (test code = WBC) 11.0 K/mm3 4.5-12.5 N RED BLOOD CELL (test code = RBC) 2.73 mill/mm3 3.7-5.2 L HEMOGLOBIN (test code = HGB) 7.0 gram/dL 11.5-15.5 L HEMATOCRIT (test code = HCT) 24.0 % 36.0-46.0 L MEAN CELL VOLUME (test code = MCV) 87.9 fL 80-98 N MEAN CELL HGB (test code = MCH) 25.6 picogram 27.0-33.0 L MEAN CELL HGB CONCETRATION (test code = MCHC) 29.2 gram/dL 33.0-36. 0 L RED CELL DISTRIBUTION WIDTH (test code = RDW) 21.0 % 11.6-16. 2 H RED CELL DISTRIBUTION WIDTH SD (test code = RDW-SD) 66.4 fL 37 .0-51.0 H PLATELET COUNT (test code = PLT) 100 K/mm3 150-450 L MEAN PLATELET VOLUME (test code = MPV) 12.7 fL 6.7-11.0 H NEUTROPHIL % (test code = NT%) 85.3 % 39.0-69.0 H IMMATURE GRANULOCYTE % (test code = IG%) 0.7 % 0.0-5.0 N LYMPHOCYTE % (test code = LY%) 8.9 % 25.0-55.0 L MONOCYTE % (test code = MO%) 5.0 % 0.0-10.0 N EOSINOPHIL % (test code = EO%) 0.0 % 0.0-5.0 N BASOPHIL % (test code = BA%) 0.1 % 0.0-1.0 N NUCLEATED RBC % (test code = NRBC%) 0.0 % 0-0 N NEUTROPHIL # (test code = NT#) 9.41 K/mm3 1.8-7.7 H IMMATURE GRANULOCYTE # (test code = IG#) 0.08 x10 3/uL 0-0.03 H LYMPHOCYTE # (test code = LY#) 0.98 K/mm3 1.0-5.0 L MONOCYTE # (test code = MO#) 0.55 K/mm3 0-0.8 N EOSINOPHIL # (test code = EO#) 0.00 K/mm3 0.0-0.5 N BASOPHIL # (test code = BA#) 0.01 K/mm3 0.0-0.2 N NUCLEATED RBC # (test code = NRBC#) 0.00 K/mm3 0.0-0.1 N MANUAL DIFF REQUIRED (test code = MDIFF) NO, ONLY SCAN NEEDED DIFFERENTIAL [id number] 06:27:00* Test Item Value Reference Range Interpretation Comments STAIN ACCEPTABILITY (test code = STN ACCEPTABLE) CABOT RINGS (test code = CAB) MORPHOLOGY COMMENT (test code = MOC) PLATELET ESTIMATE (test code = PLTEST) PLATELET MORPHOLOGY (test code = PLTMORPH) CBC W/AUTO [id number] 06:27:00* Test Item Value Reference Range Interpretation Comments WHITE BLOOD CELL (test code = WBC) 11.0 K/mm3 4.5-12.5 N RED BLOOD CELL (test code = RBC) 2.73 mill/mm3 3.7-5.2 L HEMOGLOBIN (test code = HGB) 7.0 gram/dL 11.5-15.5 L HEMATOCRIT (test code = HCT) 24.0 % 36.0-46.0 L MEAN CELL VOLUME (test code = MCV) 87.9 fL 80-98 N MEAN CELL HGB (test code = MCH) 25.6 picogram 27.0-33.0 L MEAN CELL HGB CONCETRATION (test code = MCHC) 29.2 gram/dL 33.0-36. 0 L RED CELL DISTRIBUTION WIDTH (test code = RDW) 21.0 % 11.6-16. 2 H RED CELL DISTRIBUTION WIDTH SD (test code = RDW-SD) 66.4 fL 37 .0-51.0 H PLATELET COUNT (test code = PLT) 100 K/mm3 150-450 L MEAN PLATELET VOLUME (test code = MPV) 12.7 fL 6.7-11.0 H NEUTROPHIL % (test code = NT%) 85.3 % 39.0-69.0 H IMMATURE GRANULOCYTE % (test code = IG%) 0.7 % 0.0-5.0 N LYMPHOCYTE % (test code = LY%) 8.9 % 25.0-55.0 L MONOCYTE % (test code = MO%) 5.0 % 0.0-10.0 N EOSINOPHIL % (test code = EO%) 0.0 % 0.0-5.0 N BASOPHIL % (test code = BA%) 0.1 % 0.0-1.0 N NUCLEATED RBC % (test code = NRBC%) 0.0 % 0-0 N NEUTROPHIL # (test code = NT#) 9.41 K/mm3 1.8-7.7 H IMMATURE GRANULOCYTE # (test code = IG#) 0.08 x10 3/uL 0-0.03 H LYMPHOCYTE # (test code = LY#) 0.98 K/mm3 1.0-5.0 L MONOCYTE # (test code = MO#) 0.55 K/mm3 0-0.8 N EOSINOPHIL # (test code = EO#) 0.00 K/mm3 0.0-0.5 N BASOPHIL # (test code = BA#) 0.01 K/mm3 0.0-0.2 N NUCLEATED RBC # (test code = NRBC#) 0.00 K/mm3 0.0-0.1 N MANUAL DIFF REQUIRED (test code = MDIFF) NO, ONLY SCAN NEEDED DIFFERENTIAL [id number] 06:27:00* Test Item Value Reference Range Interpretation Comments STAIN ACCEPTABILITY (test code = STN ACCEPTABLE) MORPHOLOGY COMMENT (test code = MOC) PLATELET ESTIMATE (test code = PLTEST) PLATELET MORPHOLOGY (test code = PLTMORPH) CBC W/AUTO [id number] 06:27:00* Test Item Value Reference Range Interpretation Comments WHITE BLOOD CELL (test code = WBC) 11.0 K/mm3 4.5-12.5 N RED BLOOD CELL (test code = RBC) 2.73 mill/mm3 3.7-5.2 L HEMOGLOBIN (test code = HGB) 7.0 gram/dL 11.5-15.5 L HEMATOCRIT (test code = HCT) 24.0 % 36.0-46.0 L MEAN CELL VOLUME (test code = MCV) 87.9 fL 80-98 N MEAN CELL HGB (test code = MCH) 25.6 picogram 27.0-33.0 L MEAN CELL HGB CONCETRATION (test code = MCHC) 29.2 gram/dL 33.0-36. 0 L RED CELL DISTRIBUTION WIDTH (test code = RDW) 21.0 % 11.6-16. 2 H RED CELL DISTRIBUTION WIDTH SD (test code = RDW-SD) 66.4 fL 37 .0-51.0 H PLATELET COUNT (test code = PLT) 100 K/mm3 150-450 L MEAN PLATELET VOLUME (test code = MPV) 12.7 fL 6.7-11.0 H NEUTROPHIL % (test code = NT%) 85.3 % 39.0-69.0 H IMMATURE GRANULOCYTE % (test code = IG%) 0.7 % 0.0-5.0 N LYMPHOCYTE % (test code = LY%) 8.9 % 25.0-55.0 L MONOCYTE % (test code = MO%) 5.0 % 0.0-10.0 N EOSINOPHIL % (test code = EO%) 0.0 % 0.0-5.0 N BASOPHIL % (test code = BA%) 0.1 % 0.0-1.0 N NUCLEATED RBC % (test code = NRBC%) 0.0 % 0-0 N NEUTROPHIL # (test code = NT#) 9.41 K/mm3 1.8-7.7 H IMMATURE GRANULOCYTE # (test code = IG#) 0.08 x10 3/uL 0-0.03 H LYMPHOCYTE # (test code = LY#) 0.98 K/mm3 1.0-5.0 L MONOCYTE # (test code = MO#) 0.55 K/mm3 0-0.8 N EOSINOPHIL # (test code = EO#) 0.00 K/mm3 0.0-0.5 N BASOPHIL # (test code = BA#) 0.01 K/mm3 0.0-0.2 N NUCLEATED RBC # (test code = NRBC#) 0.00 K/mm3 0.0-0.1 N MANUAL DIFF REQUIRED (test code = MDIFF) NO, ONLY SCAN NEEDED DIFFERENTIAL [id number] 06:27:00* Test Item Value Reference Range Interpretation Comments STAIN ACCEPTABILITY (test code = STN ACCEPTABLE) CABOT RINGS (test code = CAB) MORPHOLOGY COMMENT (test code = MOC) PLATELET ESTIMATE (test code = PLTEST) PLATELET MORPHOLOGY (test code = PLTMORPH) BASIC METABOLIC [id number] 06:22:00* Test Item Value Reference Range Interpretation Comments SODIUM (test code = NA) 139 mmol/L 136-145 N POTASSIUM (test code = K) 5.1 mmol/L 3.5-5.1 N CHLORIDE (test code = CL) 108.0 mmol/L 98-107 H CARBON DIOXIDE (test code = CO2) mmol/L 21-32 ANION GAP (test code = GAP) 10-20 GLUCOSE (test code = GLU) mg/dL 74-106 BLOOD UREA NITROGEN (test code = BUN) mg/dL 7-18 GLOMERULAR FILTRATION RATE (test code = GFR) mL/min >=60 CREATININE (test code = CREAT) mg/dL 0.55-1.02 BUN/CREATININE RATIO (test code = BUN/CREA) 10-20 CALCIUM (test code = CA) mg/dL 8.5-10.1 FLUID CREATININE [id number] 14:32:00* Test Item Value Reference Range Interpretation Comments FLUID CREATININE (test code = CREATF) 1.85 SOURCE (test code = SOURCE) PER RN/JERROD SOURCE= ABDOMINAL DRAIN LACTIC [id number] 11:07:00* Test Item Value Reference Range Interpretation Comments LACTIC ACID (test code = LACT) 1.8 mmol/L 0.4-1.9 N - XR CHEST 1 [id number] 07:28:00 FAX: Charito Lowe MD [phone] [place]: B St: ADM FAX: Cece Bonds NP [phone] Name: SIOBHAN BARBOSA [facility] : 1965 Age/S: 53/F [address] [facility] Unit #: [id number] Loc: [facility] [place] [address] Phys: Cece Bonds [employer] Acct: [id number] Dis Date: Status: ADM IN PHONE #: [phone] Exam Date: 10/09/2018 0502 FAX #: [phone] Reason: sob EXAMS: CPT CODE: [id number] XR CHEST 1 V 33492 HISTORY: Shortness of breath. COMPARISON: Previous day. The line and tubes are unchanged. ET tube is low-lying but above the dave. Left lower lobe segmental atelectasis with small effusion. No infiltrates or congestion. Right lung is clear. Cardiomegaly. IMPRESSION: No infiltrates or congestion. Small left effusion with subsegmental atelectasis. at 0728 Reported and signed by: Krystian Johnson M.D. CC: Charito Rea MD; Cece Bonds NP Technologist: AUSTIN WYMAN, RT(R); Cathi Brock Trnscrd Date/Time/By: 10/09/2018 (02 12) : By: [email or web address] Orig Print D/T: S: 10/09/2018 (0767) PAGE 1 Signed Report CBC W/MANUAL [id number] 06:53:00* Test Item Value Reference Range Interpretation Comments WHITE BLOOD CELL (test code = WBC) 18.3 K/mm3 4.5-12.5 H RED BLOOD CELL (test code = RBC) 3.21 mill/mm3 3.7-5.2 L HEMOGLOBIN (test code = HGB) 8.4 gram/dL 11.5-15.5 L HEMATOCRIT (test code = HCT) 27.7 % 36.0-46.0 L MEAN CELL VOLUME (test code = MCV) 86.3 fL 80-98 N MEAN CELL HGB (test code = MCH) 26.2 picogram 27.0-33.0 L MEAN CELL HGB CONCETRATION (test code = MCHC) 30.3 gram/dL 33.0-36. 0 L RED CELL DISTRIBUTION WIDTH (test code = RDW) 20.9 % 11.6-16. 2 H RED CELL DISTRIBUTION WIDTH SD (test code = RDW-SD) 65.9 fL 37 .0-51.0 H PLATELET COUNT (test code = PLT) 124 K/mm3 150-450 L MEAN PLATELET VOLUME (test code = MPV) 13.4 fL 6.7-11.0 H IMMATURE GRANULOCYTE % (test code = IG%) 0.7 % 0.0-5.0 N NUCLEATED RBC % (test code = NRBC%) 0.0 % 0-0 N NEUTROPHIL # (test code = NT#) 16.87 K/mm3 1.8-7.7 H IMMATURE GRANULOCYTE # (test code = IG#) 0.12 x10 3/uL 0-0.03 H LYMPHOCYTE # (test code = LY#) 0.92 K/mm3 1.0-5.0 L MONOCYTE # (test code = MO#) 0.39 K/mm3 0-0.8 N EOSINOPHIL # (test code = EO#) 0.00 K/mm3 0.0-0.5 N BASOPHIL # (test code = BA#) 0.02 K/mm3 0.0-0.2 N NUCLEATED RBC # (test code = NRBC#) 0.00 K/mm3 0.0-0.1 N MANUAL DIFF REQUIRED (test code = MDIFF) YES STAIN ACCEPTABILITY (test code = STN ACCEPTABLE) STAIN ACCEPTABLE TOTAL CELLS COUNTED (test code = TCC) 115 #CELLS SEGMENTED NEUTROPHILS (test code = SEG) 93.0 % 39-69 H BAND NEUTROPHIL (test code = BAND) 4.4 % 0-10 N LYMPHOCYTE (test code = LYMPH) 2.6 % 25-55 L REACTIVE LYMPH (test code = RELYMPH) 0 % MONOCYTE (test code = MON) 0 % 0-10 N EOSINOPHIL (test code = EOS) 0 % 0.0-5.0 N BASOPHIL (test code = BASO) 0 % 0-1.0 N METAMYELOCYTE (test code = META) 0 % 0-0 N MYELOCYTE (test code = MYELO) 0 % 0.0-0.0 N PROMYELOCYTE (test code = PROM) 0 % 0-0 N POLYCHROMASIA (test code = POLC) 2+ POIKILOCYTOSIS (test code = POIK) 3+ ANISOCYTOSIS (test code = ANISO) 2+ MACROCYTOSIS (test code = MACR) 2+ PLATELET ESTIMATE (test code = PLTEST) ADEQUATE PLATELET MORPHOLOGY (test code = PLTMORPH) SIZE VARIABLE IMMATURE FORMS (test code = IMMAT) 0 % CBC W/MANUAL [id number] 06:40:00* Test Item Value Reference Range Interpretation Comments WHITE BLOOD CELL (test code = WBC) 18.3 K/mm3 4.5-12.5 H RED BLOOD CELL (test code = RBC) 3.21 mill/mm3 3.7-5.2 L HEMOGLOBIN (test code = HGB) 8.4 gram/dL 11.5-15.5 L HEMATOCRIT (test code = HCT) 27.7 % 36.0-46.0 L MEAN CELL VOLUME (test code = MCV) 86.3 fL 80-98 N MEAN CELL HGB (test code = MCH) 26.2 picogram 27.0-33.0 L MEAN CELL HGB CONCETRATION (test code = MCHC) 30.3 gram/dL 33.0-36. 0 L RED CELL DISTRIBUTION WIDTH (test code = RDW) 20.9 % 11.6-16. 2 H RED CELL DISTRIBUTION WIDTH SD (test code = RDW-SD) 65.9 fL 37 .0-51.0 H PLATELET COUNT (test code = PLT) 124 K/mm3 150-450 L MEAN PLATELET VOLUME (test code = MPV) 13.4 fL 6.7-11.0 H IMMATURE GRANULOCYTE % (test code = IG%) 0.7 % 0.0-5.0 N NUCLEATED RBC % (test code = NRBC%) 0.0 % 0-0 N NEUTROPHIL # (test code = NT#) 16.87 K/mm3 1.8-7.7 H IMMATURE GRANULOCYTE # (test code = IG#) 0.12 x10 3/uL 0-0.03 H LYMPHOCYTE # (test code = LY#) 0.92 K/mm3 1.0-5.0 L MONOCYTE # (test code = MO#) 0.39 K/mm3 0-0.8 N EOSINOPHIL # (test code = EO#) 0.00 K/mm3 0.0-0.5 N BASOPHIL # (test code = BA#) 0.02 K/mm3 0.0-0.2 N NUCLEATED RBC # (test code = NRBC#) 0.00 K/mm3 0.0-0.1 N MANUAL DIFF REQUIRED (test code = MDIFF) YES STAIN ACCEPTABILITY (test code = STN ACCEPTABLE) TOTAL CELLS COUNTED (test code = TCC) #CELLS SEGMENTED NEUTROPHILS (test code = SEG) % 39-69 LYMPHOCYTE (test code = LYMPH) % 25-55 MONOCYTE (test code = MON) % 0-10 EOSINOPHIL (test code = EOS) % 0.0-5.0 CABOT RINGS (test code = CAB) MORPHOLOGY COMMENT (test code = MOC) PLATELET ESTIMATE (test code = PLTEST) PLATELET MORPHOLOGY (test code = PLTMORPH) CBC W/MANUAL [id number] 06:40:00* Test Item Value Reference Range Interpretation Comments WHITE BLOOD CELL (test code = WBC) 18.3 K/mm3 4.5-12.5 H RED BLOOD CELL (test code = RBC) 3.21 mill/mm3 3.7-5.2 L HEMOGLOBIN (test code = HGB) 8.4 gram/dL 11.5-15.5 L HEMATOCRIT (test code = HCT) 27.7 % 36.0-46.0 L MEAN CELL VOLUME (test code = MCV) 86.3 fL 80-98 N MEAN CELL HGB (test code = MCH) 26.2 picogram 27.0-33.0 L MEAN CELL HGB CONCETRATION (test code = MCHC) 30.3 gram/dL 33.0-36. 0 L RED CELL DISTRIBUTION WIDTH (test code = RDW) 20.9 % 11.6-16. 2 H RED CELL DISTRIBUTION WIDTH SD (test code = RDW-SD) 65.9 fL 37 .0-51.0 H PLATELET COUNT (test code = PLT) 124 K/mm3 150-450 L MEAN PLATELET VOLUME (test code = MPV) 13.4 fL 6.7-11.0 H IMMATURE GRANULOCYTE % (test code = IG%) 0.7 % 0.0-5.0 N NUCLEATED RBC % (test code = NRBC%) 0.0 % 0-0 N NEUTROPHIL # (test code = NT#) 16.87 K/mm3 1.8-7.7 H IMMATURE GRANULOCYTE # (test code = IG#) 0.12 x10 3/uL 0-0.03 H LYMPHOCYTE # (test code = LY#) 0.92 K/mm3 1.0-5.0 L MONOCYTE # (test code = MO#) 0.39 K/mm3 0-0.8 N EOSINOPHIL # (test code = EO#) 0.00 K/mm3 0.0-0.5 N BASOPHIL # (test code = BA#) 0.02 K/mm3 0.0-0.2 N NUCLEATED RBC # (test code = NRBC#) 0.00 K/mm3 0.0-0.1 N MANUAL DIFF REQUIRED (test code = MDIFF) YES STAIN ACCEPTABILITY (test code = STN ACCEPTABLE) TOTAL CELLS COUNTED (test code = TCC) #CELLS SEGMENTED NEUTROPHILS (test code = SEG) % 39-69 LYMPHOCYTE (test code = LYMPH) % 25-55 MONOCYTE (test code = MON) % 0-10 EOSINOPHIL (test code = EOS) % 0.0-5.0 CABOT RINGS (test code = CAB) MORPHOLOGY COMMENT (test code = MOC) PLATELET ESTIMATE (test code = PLTEST) PLATELET MORPHOLOGY (test code = PLTMORPH) CBC W/MANUAL [id number] 06:40:00* Test Item Value Reference Range Interpretation Comments WHITE BLOOD CELL (test code = WBC) 18.3 K/mm3 4.5-12.5 H RED BLOOD CELL (test code = RBC) 3.21 mill/mm3 3.7-5.2 L HEMOGLOBIN (test code = HGB) 8.4 gram/dL 11.5-15.5 L HEMATOCRIT (test code = HCT) 27.7 % 36.0-46.0 L MEAN CELL VOLUME (test code = MCV) 86.3 fL 80-98 N MEAN CELL HGB (test code = MCH) 26.2 picogram 27.0-33.0 L MEAN CELL HGB CONCETRATION (test code = MCHC) 30.3 gram/dL 33.0-36. 0 L RED CELL DISTRIBUTION WIDTH (test code = RDW) 20.9 % 11.6-16. 2 H RED CELL DISTRIBUTION WIDTH SD (test code = RDW-SD) 65.9 fL 37 .0-51.0 H PLATELET COUNT (test code = PLT) 124 K/mm3 150-450 L MEAN PLATELET VOLUME (test code = MPV) 13.4 fL 6.7-11.0 H IMMATURE GRANULOCYTE % (test code = IG%) 0.7 % 0.0-5.0 N NUCLEATED RBC % (test code = NRBC%) 0.0 % 0-0 N NEUTROPHIL # (test code = NT#) 16.87 K/mm3 1.8-7.7 H IMMATURE GRANULOCYTE # (test code = IG#) 0.12 x10 3/uL 0-0.03 H LYMPHOCYTE # (test code = LY#) 0.92 K/mm3 1.0-5.0 L MONOCYTE # (test code = MO#) 0.39 K/mm3 0-0.8 N EOSINOPHIL # (test code = EO#) 0.00 K/mm3 0.0-0.5 N BASOPHIL # (test code = BA#) 0.02 K/mm3 0.0-0.2 N NUCLEATED RBC # (test code = NRBC#) 0.00 K/mm3 0.0-0.1 N MANUAL DIFF REQUIRED (test code = MDIFF) YES STAIN ACCEPTABILITY (test code = STN ACCEPTABLE) TOTAL CELLS COUNTED (test code = TCC) #CELLS SEGMENTED NEUTROPHILS (test code = SEG) % 39-69 LYMPHOCYTE (test code = LYMPH) % 25-55 MONOCYTE (test code = MON) % 0-10 EOSINOPHIL (test code = EOS) % 0.0-5.0 MORPHOLOGY COMMENT (test code = MOC) PLATELET ESTIMATE (test code = PLTEST) PLATELET MORPHOLOGY (test code = PLTMORPH) CBC W/MANUAL [id number] 06:40:00* Test Item Value Reference Range Interpretation Comments WHITE BLOOD CELL (test code = WBC) 18.3 K/mm3 4.5-12.5 H RED BLOOD CELL (test code = RBC) 3.21 mill/mm3 3.7-5.2 L HEMOGLOBIN (test code = HGB) 8.4 gram/dL 11.5-15.5 L HEMATOCRIT (test code = HCT) 27.7 % 36.0-46.0 L MEAN CELL VOLUME (test code = MCV) 86.3 fL 80-98 N MEAN CELL HGB (test code = MCH) 26.2 picogram 27.0-33.0 L MEAN CELL HGB CONCETRATION (test code = MCHC) 30.3 gram/dL 33.0-36. 0 L RED CELL DISTRIBUTION WIDTH (test code = RDW) 20.9 % 11.6-16. 2 H RED CELL DISTRIBUTION WIDTH SD (test code = RDW-SD) 65.9 fL 37 .0-51.0 H PLATELET COUNT (test code = PLT) 124 K/mm3 150-450 L MEAN PLATELET VOLUME (test code = MPV) 13.4 fL 6.7-11.0 H IMMATURE GRANULOCYTE % (test code = IG%) 0.7 % 0.0-5.0 N NUCLEATED RBC % (test code = NRBC%) 0.0 % 0-0 N NEUTROPHIL # (test code = NT#) 16.87 K/mm3 1.8-7.7 H IMMATURE GRANULOCYTE # (test code = IG#) 0.12 x10 3/uL 0-0.03 H LYMPHOCYTE # (test code = LY#) 0.92 K/mm3 1.0-5.0 L MONOCYTE # (test code = MO#) 0.39 K/mm3 0-0.8 N EOSINOPHIL # (test code = EO#) 0.00 K/mm3 0.0-0.5 N BASOPHIL # (test code = BA#) 0.02 K/mm3 0.0-0.2 N NUCLEATED RBC # (test code = NRBC#) 0.00 K/mm3 0.0-0.1 N MANUAL DIFF REQUIRED (test code = MDIFF) YES STAIN ACCEPTABILITY (test code = STN ACCEPTABLE) TOTAL CELLS COUNTED (test code = TCC) #CELLS SEGMENTED NEUTROPHILS (test code = SEG) % 39-69 LYMPHOCYTE (test code = LYMPH) % 25-55 MONOCYTE (test code = MON) % 0-10 MORPHOLOGY COMMENT (test code = MOC) PLATELET ESTIMATE (test code = PLTEST) PLATELET MORPHOLOGY (test code = PLTMORPH) CBC W/MANUAL [id number] 06:40:00* Test Item Value Reference Range Interpretation Comments WHITE BLOOD CELL (test code = WBC) 18.3 K/mm3 4.5-12.5 H RED BLOOD CELL (test code = RBC) 3.21 mill/mm3 3.7-5.2 L HEMOGLOBIN (test code = HGB) 8.4 gram/dL 11.5-15.5 L HEMATOCRIT (test code = HCT) 27.7 % 36.0-46.0 L MEAN CELL VOLUME (test code = MCV) 86.3 fL 80-98 N MEAN CELL HGB (test code = MCH) 26.2 picogram 27.0-33.0 L MEAN CELL HGB CONCETRATION (test code = MCHC) 30.3 gram/dL 33.0-36. 0 L RED CELL DISTRIBUTION WIDTH (test code = RDW) 20.9 % 11.6-16. 2 H RED CELL DISTRIBUTION WIDTH SD (test code = RDW-SD) 65.9 fL 37 .0-51.0 H PLATELET COUNT (test code = PLT) 124 K/mm3 150-450 L MEAN PLATELET VOLUME (test code = MPV) 13.4 fL 6.7-11.0 H IMMATURE GRANULOCYTE % (test code = IG%) 0.7 % 0.0-5.0 N NUCLEATED RBC % (test code = NRBC%) 0.0 % 0-0 N NEUTROPHIL # (test code = NT#) 16.87 K/mm3 1.8-7.7 H IMMATURE GRANULOCYTE # (test code = IG#) 0.12 x10 3/uL 0-0.03 H LYMPHOCYTE # (test code = LY#) 0.92 K/mm3 1.0-5.0 L MONOCYTE # (test code = MO#) 0.39 K/mm3 0-0.8 N EOSINOPHIL # (test code = EO#) 0.00 K/mm3 0.0-0.5 N BASOPHIL # (test code = BA#) 0.02 K/mm3 0.0-0.2 N NUCLEATED RBC # (test code = NRBC#) 0.00 K/mm3 0.0-0.1 N MANUAL DIFF REQUIRED (test code = MDIFF) YES STAIN ACCEPTABILITY (test code = STN ACCEPTABLE) TOTAL CELLS COUNTED (test code = TCC) #CELLS SEGMENTED NEUTROPHILS (test code = SEG) % 39-69 LYMPHOCYTE (test code = LYMPH) % 25-55 MONOCYTE (test code = MON) % 0-10 EOSINOPHIL (test code = EOS) % 0.0-5.0 CABOT RINGS (test code = CAB) MORPHOLOGY COMMENT (test code = MOC) PLATELET ESTIMATE (test code = PLTEST) PLATELET MORPHOLOGY (test code = PLTMORPH) LACTIC [id number] 06:36:00* Test Item Value Reference Range Interpretation Comments LACTIC ACID (test code = LACT) 2.1 mmol/L 0.4-1.9 HH Results called to [id number] by [email or web address] 10/09/18 0634Critical results verified and read back by Nurse? Y BASIC METABOLIC [id number] 06:32:00* Test Item Value Reference Range Interpretation Comments SODIUM (test code = NA) 141 mmol/L 136-145 N POTASSIUM (test code = K) 5.3 mmol/L 3.5-5.1 H CHLORIDE (test code = CL) 110.0 mmol/L 98-107 H CARBON DIOXIDE (test code = CO2) 22.0 mmol/L 21-32 N ANION GAP (test code = GAP) 14.3 10-20 N GLUCOSE (test code = GLU) 104 mg/dL 74-106 N BLOOD UREA NITROGEN (test code = BUN) 53 mg/dL 7-18 H GLOMERULAR FILTRATION RATE (test code = GFR) 31 mL/min >=60 Estimated GFR by using Modified MDRD formula.Chronic kidney disease is defined as either kidney damageor GFR <60 mL/min/1.73 m2 for >3 months. CREATININE (test code = CREAT) 1.70 mg/dL 0.55-1.02 H Note change in reference range due to change in reagent. BUN/CREATININE RATIO (test code = BUN/CREA) 31.2 10-20 H CALCIUM (test code = CA) 9.0 mg/dL 8.5-10.1 N [id number] 06:32:00* Test Item Value Reference Range Interpretation Comments PHOSPHORUS (test code = PHOS) 5.2 mg/dL 2.5-4.9 H [id number] 06:32:00* Test Item Value Reference Range Interpretation Comments MAGNESIUM (test code = MAG) 2.0 mg/dL 1.8-2.4 N CALCIUM [id number] 06:32:00* Test Item Value Reference Range Interpretation Comments CALCIUM IONIZED (test code = MARIAH) 1.43 mmol/L 1.12-1.32 H BASIC METABOLIC [id number] 06:28:00* Test Item Value Reference Range Interpretation Comments SODIUM (test code = NA) 141 mmol/L 136-145 N POTASSIUM (test code = K) 5.3 mmol/L 3.5-5.1 H CHLORIDE (test code = CL) 110.0 mmol/L 98-107 H CARBON DIOXIDE (test code = CO2) mmol/L 21-32 ANION GAP (test code = GAP) 10-20 GLUCOSE (test code = GLU) mg/dL 74-106 BLOOD UREA NITROGEN (test code = BUN) mg/dL 7-18 GLOMERULAR FILTRATION RATE (test code = GFR) mL/min >=60 CREATININE (test code = CREAT) mg/dL 0.55-1.02 BUN/CREATININE RATIO (test code = BUN/CREA) 10-20 CALCIUM (test code = CA) mg/dL 8.5-10.1 [id number] 06:28:00* Test Item Value Reference Range Interpretation Comments PHOSPHORUS (test code = PHOS) mg/dL 2.5-4.9 [id number] 06:28:00* Test Item Value Reference Range Interpretation Comments MAGNESIUM (test code = MAG) mg/dL 1.8-2.4 CALCIUM [id number] 06:28:00* Test Item Value Reference Range Interpretation Comments CALCIUM IONIZED (test code = MARIAH) 1.43 mmol/L 1.12-1.32 H BASIC METABOLIC [id number] 06:17:00* Test Item Value Reference Range Interpretation Comments SODIUM (test code = NA) mmol/L 136-145 POTASSIUM (test code = K) mmol/L 3.5-5.1 CHLORIDE (test code = CL) mmol/L 98-107 CARBON DIOXIDE (test code = CO2) mmol/L 21-32 ANION GAP (test code = GAP) 10-20 GLUCOSE (test code = GLU) mg/dL 74-106 BLOOD UREA NITROGEN (test code = BUN) mg/dL 7-18 GLOMERULAR FILTRATION RATE (test code = GFR) mL/min >=60 CREATININE (test code = CREAT) mg/dL 0.55-1.02 BUN/CREATININE RATIO (test code = BUN/CREA) 10-20 CALCIUM (test code = CA) mg/dL 8.5-10.1 [id number] 06:17:00* Test Item Value Reference Range Interpretation Comments PHOSPHORUS (test code = PHOS) mg/dL 2.5-4.9 [id number] 06:17:00* Test Item Value Reference Range Interpretation Comments MAGNESIUM (test code = MAG) mg/dL 1.8-2.4 CALCIUM [id number] 06:17:00* Test Item Value Reference Range Interpretation Comments CALCIUM IONIZED (test code = MARIAH) 1.43 mmol/L 1.12-1.32 H ARTERIAL BLOOD [id number] 05:37:00* Test Item Value Reference Range Interpretation Comments ARTERIAL BLOOD GAS PH (test code = PHA) 7.34 7.35-7.45 L ARTERIAL BLOOD GAS PCO2 (test code = PCO2A) 39.1 mm Hg 35-45 N ARTERIAL BLOOD GAS PO2 (test code = PO2A) 50.6 mmHg 80-100 L BICARBONATE TOTAL HCO3 (test code = HCO3) 20.6 mmol/L 23.0-27.0 L BASE EXCESS (test code = TERRENCE) -4.8 mmol/L -3.0-5.0 LL Results called to and read back by Festus 05:35 - 10/09/2018; by hardeep peralta, manager cardiology ABG O2 SATURATION (test code = SATA) 82.1 % 90.0-98.0 L ABG TYPE (test code = TYPEA) Arterial FIO2 (test code = FIO2A) 30.0 ABG VENT MODE (test code = MODEA) CPAP ABG VENT RESP RATE (test code = RRA) 16.0 per min ABG PEEP (test code = PEEPA) 5.0 cmH2O ABG PRESSURE SUPPORT (test code = PSABG) 5 cmH2O ABG SITE (test code = SITEA) Lt RADIAL ARTERY MODIFIED ALLENS (test code = MODALL) Yes CHECK PERFORMED SODIUM (test code = NA/ABG) 132.9 mEq/L 135-148 L POTASSIUM (test code = K/ABG) 5.2 mEq/L 3.5-4.5 H CHLORIDE (test code = CL/ABG) 108 mEq/L 98-106 H GLUCOSE (test code = GLU/ABG) 109 mg/dL 74-99 H HEMATOCRIT (test code = HCT/ABG) 29 % 35-47 L IONIZED CALCIUM (test code = CAIABG) 1.33 mmol/L 1.1-1.37 N TOTAL HGB (test code = THB) 9.8 gram/dL 11.5-15.5 L HGB O2 SAT (test code = HBOSAT) 81.4 % 94.00-98.00 L CARBOXYHEMOGLOBIN (test code = HOHGBT) 0.2 %totalHg 0.5-1.5 LL Results called to and read back by Festus 05:35 - 10/09/2018; by hardeep peralta, adina METHEMOGLOBIN (test code = METHGB) 0.6 % 0.0-1.50 N O2 CONTENT (test code = O2CT) 11.2 % vol 18.0-22.0 L LACTIC [id number] 23:19:00* Test Item Value Reference Range Interpretation Comments LACTIC ACID (test code = LACT) 1.4 mmol/L 0.4-1.9 N CBC W/AUTO [id number] 21:45:00* Test Item Value Reference Range Interpretation Comments WHITE BLOOD CELL (test code = WBC) 16.6 K/mm3 4.5-12.5 H RED BLOOD CELL (test code = RBC) 3.43 mill/mm3 3.7-5.2 L HEMOGLOBIN (test code = HGB) 8.8 gram/dL 11.5-15.5 L HEMATOCRIT (test code = HCT) 29.7 % 36.0-46.0 L MEAN CELL VOLUME (test code = MCV) 86.6 fL 80-98 N MEAN CELL HGB (test code = MCH) 25.7 picogram 27.0-33.0 L MEAN CELL HGB CONCETRATION (test code = MCHC) 29.6 gram/dL 33.0-36. 0 L RED CELL DISTRIBUTION WIDTH (test code = RDW) 20.9 % 11.6-16. 2 H RED CELL DISTRIBUTION WIDTH SD (test code = RDW-SD) 65.9 fL 37 .0-51.0 H PLATELET COUNT (test code = PLT) 117 K/mm3 150-450 L MEAN PLATELET VOLUME (test code = MPV) TEST NOT PERFORMED fL 6.7-11 .0 Unable to determine due to platelet abnormality , please seethe platelet morphology. NEUTROPHIL % (test code = NT%) 91.9 % 39.0-69.0 H IMMATURE GRANULOCYTE % (test code = IG%) 0.5 % 0.0-5.0 N LYMPHOCYTE % (test code = LY%) 4.7 % 25.0-55.0 L MONOCYTE % (test code = MO%) 2.7 % 0.0-10.0 N EOSINOPHIL % (test code = EO%) 0.1 % 0.0-5.0 N BASOPHIL % (test code = BA%) 0.1 % 0.0-1.0 N NUCLEATED RBC % (test code = NRBC%) 0.0 % 0-0 N NEUTROPHIL # (test code = NT#) 15.22 K/mm3 1.8-7.7 H IMMATURE GRANULOCYTE # (test code = IG#) 0.09 x10 3/uL 0-0.03 H LYMPHOCYTE # (test code = LY#) 0.78 K/mm3 1.0-5.0 L MONOCYTE # (test code = MO#) 0.44 K/mm3 0-0.8 N EOSINOPHIL # (test code = EO#) 0.01 K/mm3 0.0-0.5 N BASOPHIL # (test code = BA#) 0.01 K/mm3 0.0-0.2 N NUCLEATED RBC # (test code = NRBC#) 0.00 K/mm3 0.0-0.1 N MANUAL DIFF REQUIRED (test code = MDIFF) NO, ONLY SCAN NEEDED DIFFERENTIAL [id number] 21:45:00* Test Item Value Reference Range Interpretation Comments STAIN ACCEPTABILITY (test code = STN ACCEPTABLE) STAIN ACCEPTABLE POLYCHROMASIA (test code = POLC) 1+ HYPOCHROMIA (test code = HYPO) 1+ POIKILOCYTOSIS (test code = POIK) 1+ ANISOCYTOSIS (test code = ANISO) 1+ MICROCYTOSIS (test code = MICR) 1+ PLATELET ESTIMATE (test code = PLTEST) DECREASED PLATELET MORPHOLOGY (test code = PLTMORPH) SIZE VARIABLE FEW GIANT PLATELETS SEEN. CBC W/AUTO [id number] 21:44:00* Test Item Value Reference Range Interpretation Comments WHITE BLOOD CELL (test code = WBC) 16.6 K/mm3 4.5-12.5 H RED BLOOD CELL (test code = RBC) 3.43 mill/mm3 3.7-5.2 L HEMOGLOBIN (test code = HGB) 8.8 gram/dL 11.5-15.5 L HEMATOCRIT (test code = HCT) 29.7 % 36.0-46.0 L MEAN CELL VOLUME (test code = MCV) 86.6 fL 80-98 N MEAN CELL HGB (test code = MCH) 25.7 picogram 27.0-33.0 L MEAN CELL HGB CONCETRATION (test code = MCHC) 29.6 gram/dL 33.0-36. 0 L RED CELL DISTRIBUTION WIDTH (test code = RDW) 20.9 % 11.6-16. 2 H RED CELL DISTRIBUTION WIDTH SD (test code = RDW-SD) 65.9 fL 37 .0-51.0 H PLATELET COUNT (test code = PLT) 117 K/mm3 150-450 L MEAN PLATELET VOLUME (test code = MPV) TEST NOT PERFORMED fL 6.7-11 .0 Unable to determine due to platelet abnormality , please seethe platelet morphology. NEUTROPHIL % (test code = NT%) 91.9 % 39.0-69.0 H IMMATURE GRANULOCYTE % (test code = IG%) 0.5 % 0.0-5.0 N LYMPHOCYTE % (test code = LY%) 4.7 % 25.0-55.0 L MONOCYTE % (test code = MO%) 2.7 % 0.0-10.0 N EOSINOPHIL % (test code = EO%) 0.1 % 0.0-5.0 N BASOPHIL % (test code = BA%) 0.1 % 0.0-1.0 N NUCLEATED RBC % (test code = NRBC%) 0.0 % 0-0 N NEUTROPHIL # (test code = NT#) 15.22 K/mm3 1.8-7.7 H IMMATURE GRANULOCYTE # (test code = IG#) 0.09 x10 3/uL 0-0.03 H LYMPHOCYTE # (test code = LY#) 0.78 K/mm3 1.0-5.0 L MONOCYTE # (test code = MO#) 0.44 K/mm3 0-0.8 N EOSINOPHIL # (test code = EO#) 0.01 K/mm3 0.0-0.5 N BASOPHIL # (test code = BA#) 0.01 K/mm3 0.0-0.2 N NUCLEATED RBC # (test code = NRBC#) 0.00 K/mm3 0.0-0.1 N MANUAL DIFF REQUIRED (test code = MDIFF) NO, ONLY SCAN NEEDED DIFFERENTIAL [id number] 21:44:00* Test Item Value Reference Range Interpretation Comments STAIN ACCEPTABILITY (test code = STN ACCEPTABLE) CABOT RINGS (test code = CAB) MORPHOLOGY COMMENT (test code = MOC) PLATELET ESTIMATE (test code = PLTEST) PLATELET MORPHOLOGY (test code = PLTMORPH) CBC W/AUTO [id number] 21:44:00* Test Item Value Reference Range Interpretation Comments WHITE BLOOD CELL (test code = WBC) 16.6 K/mm3 4.5-12.5 H RED BLOOD CELL (test code = RBC) 3.43 mill/mm3 3.7-5.2 L HEMOGLOBIN (test code = HGB) 8.8 gram/dL 11.5-15.5 L HEMATOCRIT (test code = HCT) 29.7 % 36.0-46.0 L MEAN CELL VOLUME (test code = MCV) 86.6 fL 80-98 N MEAN CELL HGB (test code = MCH) 25.7 picogram 27.0-33.0 L MEAN CELL HGB CONCETRATION (test code = MCHC) 29.6 gram/dL 33.0-36. 0 L RED CELL DISTRIBUTION WIDTH (test code = RDW) 20.9 % 11.6-16. 2 H RED CELL DISTRIBUTION WIDTH SD (test code = RDW-SD) 65.9 fL 37 .0-51.0 H PLATELET COUNT (test code = PLT) 117 K/mm3 150-450 L MEAN PLATELET VOLUME (test code = MPV) TEST NOT PERFORMED fL 6.7-11 .0 Unable to determine due to platelet abnormality , please seethe platelet morphology. NEUTROPHIL % (test code = NT%) 91.9 % 39.0-69.0 H IMMATURE GRANULOCYTE % (test code = IG%) 0.5 % 0.0-5.0 N LYMPHOCYTE % (test code = LY%) 4.7 % 25.0-55.0 L MONOCYTE % (test code = MO%) 2.7 % 0.0-10.0 N EOSINOPHIL % (test code = EO%) 0.1 % 0.0-5.0 N BASOPHIL % (test code = BA%) 0.1 % 0.0-1.0 N NUCLEATED RBC % (test code = NRBC%) 0.0 % 0-0 N NEUTROPHIL # (test code = NT#) 15.22 K/mm3 1.8-7.7 H IMMATURE GRANULOCYTE # (test code = IG#) 0.09 x10 3/uL 0-0.03 H LYMPHOCYTE # (test code = LY#) 0.78 K/mm3 1.0-5.0 L MONOCYTE # (test code = MO#) 0.44 K/mm3 0-0.8 N EOSINOPHIL # (test code = EO#) 0.01 K/mm3 0.0-0.5 N BASOPHIL # (test code = BA#) 0.01 K/mm3 0.0-0.2 N NUCLEATED RBC # (test code = NRBC#) 0.00 K/mm3 0.0-0.1 N MANUAL DIFF REQUIRED (test code = MDIFF) NO, ONLY SCAN NEEDED DIFFERENTIAL [id number] 21:44:00* Test Item Value Reference Range Interpretation Comments STAIN ACCEPTABILITY (test code = STN ACCEPTABLE) CABOT RINGS (test code = CAB) MORPHOLOGY COMMENT (test code = MOC) PLATELET ESTIMATE (test code = PLTEST) PLATELET MORPHOLOGY (test code = PLTMORPH) CBC W/AUTO [id number] 21:44:00* Test Item Value Reference Range Interpretation Comments WHITE BLOOD CELL (test code = WBC) 16.6 K/mm3 4.5-12.5 H RED BLOOD CELL (test code = RBC) 3.43 mill/mm3 3.7-5.2 L HEMOGLOBIN (test code = HGB) 8.8 gram/dL 11.5-15.5 L HEMATOCRIT (test code = HCT) 29.7 % 36.0-46.0 L MEAN CELL VOLUME (test code = MCV) 86.6 fL 80-98 N MEAN CELL HGB (test code = MCH) 25.7 picogram 27.0-33.0 L MEAN CELL HGB CONCETRATION (test code = MCHC) 29.6 gram/dL 33.0-36. 0 L RED CELL DISTRIBUTION WIDTH (test code = RDW) 20.9 % 11.6-16. 2 H RED CELL DISTRIBUTION WIDTH SD (test code = RDW-SD) 65.9 fL 37 .0-51.0 H PLATELET COUNT (test code = PLT) 117 K/mm3 150-450 L MEAN PLATELET VOLUME (test code = MPV) TEST NOT PERFORMED fL 6.7-11 .0 Unable to determine due to platelet abnormality , please seethe platelet morphology. NEUTROPHIL % (test code = NT%) 91.9 % 39.0-69.0 H IMMATURE GRANULOCYTE % (test code = IG%) 0.5 % 0.0-5.0 N LYMPHOCYTE % (test code = LY%) 4.7 % 25.0-55.0 L MONOCYTE % (test code = MO%) 2.7 % 0.0-10.0 N EOSINOPHIL % (test code = EO%) 0.1 % 0.0-5.0 N BASOPHIL % (test code = BA%) 0.1 % 0.0-1.0 N NUCLEATED RBC % (test code = NRBC%) 0.0 % 0-0 N NEUTROPHIL # (test code = NT#) 15.22 K/mm3 1.8-7.7 H IMMATURE GRANULOCYTE # (test code = IG#) 0.09 x10 3/uL 0-0.03 H LYMPHOCYTE # (test code = LY#) 0.78 K/mm3 1.0-5.0 L MONOCYTE # (test code = MO#) 0.44 K/mm3 0-0.8 N EOSINOPHIL # (test code = EO#) 0.01 K/mm3 0.0-0.5 N BASOPHIL # (test code = BA#) 0.01 K/mm3 0.0-0.2 N NUCLEATED RBC # (test code = NRBC#) 0.00 K/mm3 0.0-0.1 N MANUAL DIFF REQUIRED (test code = MDIFF) NO, ONLY SCAN NEEDED DIFFERENTIAL [id number] 21:44:00* Test Item Value Reference Range Interpretation Comments STAIN ACCEPTABILITY (test code = STN ACCEPTABLE) MORPHOLOGY COMMENT (test code = MOC) PLATELET ESTIMATE (test code = PLTEST) PLATELET MORPHOLOGY (test code = PLTMORPH) CBC W/AUTO [id number] 21:44:00* Test Item Value Reference Range Interpretation Comments WHITE BLOOD CELL (test code = WBC) 16.6 K/mm3 4.5-12.5 H RED BLOOD CELL (test code = RBC) 3.43 mill/mm3 3.7-5.2 L HEMOGLOBIN (test code = HGB) 8.8 gram/dL 11.5-15.5 L HEMATOCRIT (test code = HCT) 29.7 % 36.0-46.0 L MEAN CELL VOLUME (test code = MCV) 86.6 fL 80-98 N MEAN CELL HGB (test code = MCH) 25.7 picogram 27.0-33.0 L MEAN CELL HGB CONCETRATION (test code = MCHC) 29.6 gram/dL 33.0-36. 0 L RED CELL DISTRIBUTION WIDTH (test code = RDW) 20.9 % 11.6-16. 2 H RED CELL DISTRIBUTION WIDTH SD (test code = RDW-SD) 65.9 fL 37 .0-51.0 H PLATELET COUNT (test code = PLT) 117 K/mm3 150-450 L MEAN PLATELET VOLUME (test code = MPV) TEST NOT PERFORMED fL 6.7-11 .0 Unable to determine due to platelet abnormality , please seethe platelet morphology. NEUTROPHIL % (test code = NT%) 91.9 % 39.0-69.0 H IMMATURE GRANULOCYTE % (test code = IG%) 0.5 % 0.0-5.0 N LYMPHOCYTE % (test code = LY%) 4.7 % 25.0-55.0 L MONOCYTE % (test code = MO%) 2.7 % 0.0-10.0 N EOSINOPHIL % (test code = EO%) 0.1 % 0.0-5.0 N BASOPHIL % (test code = BA%) 0.1 % 0.0-1.0 N NUCLEATED RBC % (test code = NRBC%) 0.0 % 0-0 N NEUTROPHIL # (test code = NT#) 15.22 K/mm3 1.8-7.7 H IMMATURE GRANULOCYTE # (test code = IG#) 0.09 x10 3/uL 0-0.03 H LYMPHOCYTE # (test code = LY#) 0.78 K/mm3 1.0-5.0 L MONOCYTE # (test code = MO#) 0.44 K/mm3 0-0.8 N EOSINOPHIL # (test code = EO#) 0.01 K/mm3 0.0-0.5 N BASOPHIL # (test code = BA#) 0.01 K/mm3 0.0-0.2 N NUCLEATED RBC # (test code = NRBC#) 0.00 K/mm3 0.0-0.1 N MANUAL DIFF REQUIRED (test code = MDIFF) NO, ONLY SCAN NEEDED DIFFERENTIAL [id number] 21:44:00* Test Item Value Reference Range Interpretation Comments STAIN ACCEPTABILITY (test code = STN ACCEPTABLE) CABOT RINGS (test code = CAB) MORPHOLOGY COMMENT (test code = MOC) PLATELET ESTIMATE (test code = PLTEST) PLATELET MORPHOLOGY (test code = PLTMORPH) THROMBOPLASTIN TIME [id number] 19:51:00* Test Item Value Reference Range Interpretation Comments THROMBOPLASTIN TIME PARTIAL (test code = PTT) 39.8 seconds 25.0-36. 5 H IS PATIENT ON ANTICOAGULANTS? NLACTIC [id number] 19:32:00* Test Item Value Reference Range Interpretation Comments LACTIC ACID (test code = LACT) 2.9 mmol/L 0.4-1.9 HH Results called to [id number] by V.[facility].LT 10/08/18 1932Critical results verified and read back by Nurse? Y COMPREHENSIVE METABOLIC [id number] 19:31:00* Test Item Value Reference Range Interpretation Comments SODIUM (test code = NA) 139 mmol/L 136-145 N POTASSIUM (test code = K) 5.2 mmol/L 3.5-5.1 H CHLORIDE (test code = CL) 110.0 mmol/L 98-107 H CARBON DIOXIDE (test code = CO2) 23.0 mmol/L 21-32 N ANION GAP (test code = GAP) 11.2 10-20 N GLUCOSE (test code = GLU) 83 mg/dL 74-106 N BLOOD UREA NITROGEN (test code = BUN) 52 mg/dL 7-18 H GLOMERULAR FILTRATION RATE (test code = GFR) 29 mL/min >=60 Estimated GFR by using Modified MDRD formula.Chronic kidney disease is defined as either kidney damageor GFR <60 mL/min/1.73 m2 for >3 months. CREATININE (test code = CREAT) 1.80 mg/dL 0.55-1.02 H Note change in reference range due to change in reagent. BUN/CREATININE RATIO (test code = BUN/CREA) 28.9 10-20 H TOTAL PROTEIN (test code = PROT) 4.3 gram/dL 6.4-8.2 L ALBUMIN (test code = ALB) 1.1 g/dL 3.4-5.0 L GLOBULIN (test code = GLOB) 3.2 gram/dL 2.7-4.2 N ALBUMIN/GLOBULIN RATIO (test code = A/G) 0.3 0.75-1.50 L CALCIUM (test code = CA) 9.4 mg/dL 8.5-10.1 N BILIRUBIN TOTAL (test code = BILT) 1.80 mg/dL 0.0-1.0 H SGOT/AST (test code = AST) 36 IUnit/L 15-37 N SGPT/ALT (test code = ALT) 32 IUnit/L 12-78 N ALKALINE PHOSPHATASE TOTAL (test code = ALKP) 345 IUnit/L 45-117 H Note change in reference range due to change in reagent. [id number] 19:31:00* Test Item Value Reference Range Interpretation Comments PHOSPHORUS (test code = PHOS) 5.0 mg/dL 2.5-4.9 H [id number] 19:31:00* Test Item Value Reference Range Interpretation Comments MAGNESIUM (test code = MAG) 1.8 mg/dL 1.8-2.4 N COMPREHENSIVE METABOLIC [id number] 19:29:00* Test Item Value Reference Range Interpretation Comments SODIUM (test code = NA) 139 mmol/L 136-145 N POTASSIUM (test code = K) 5.2 mmol/L 3.5-5.1 H CHLORIDE (test code = CL) 110.0 mmol/L 98-107 H CARBON DIOXIDE (test code = CO2) mmol/L 21-32 ANION GAP (test code = GAP) 10-20 GLUCOSE (test code = GLU) mg/dL 74-106 BLOOD UREA NITROGEN (test code = BUN) mg/dL 7-18 GLOMERULAR FILTRATION RATE (test code = GFR) mL/min >=60 CREATININE (test code = CREAT) mg/dL 0.55-1.02 BUN/CREATININE RATIO (test code = BUN/CREA) 10-20 TOTAL PROTEIN (test code = PROT) gram/dL 6.4-8.2 ALBUMIN (test code = ALB) g/dL 3.4-5.0 GLOBULIN (test code = GLOB) gram/dL 2.7-4.2 ALBUMIN/GLOBULIN RATIO (test code = A/G) 0.75-1.50 CALCIUM (test code = CA) mg/dL 8.5-10.1 BILIRUBIN TOTAL (test code = BILT) mg/dL 0.0-1.0 SGOT/AST (test code = AST) IUnit/L 15-37 SGPT/ALT (test code = ALT) IUnit/L 12-78 ALKALINE PHOSPHATASE TOTAL (test code = ALKP) IUnit/L 45-117 [id number] 19:29:00* Test Item Value Reference Range Interpretation Comments PHOSPHORUS (test code = PHOS) mg/dL 2.5-4.9 [id number] 19:29:00* Test Item Value Reference Range Interpretation Comments MAGNESIUM (test code = MAG) mg/dL 1.8-2.4 - XR CHEST 1 [id number] 19:20:00 FAX: Charito Lowe MD [phone] [place]: B St: ADM FAX: Jeffrey Rivera MD [phone] Name: SIOBHAN BARBOSA [facility] : 1965 Age/S: 53/F [address] [facility] Unit #: [id number] Loc: V.5 [place] [address] Phys: Jeffrey Rivera MD Acct: [id number] Dis Date: Status: ADM IN PHONE #: [phone] Exam Date: 10/08/2018 1853 FAX #: [phone] Reason: S/P SURGERY. EXAMS: CPT CODE: [id number] XR CHEST 1 V 85610 HISTORY: Post surgery. Sepsis and urinoma. COMPARISON [...] MD; Jeffrey Rivera MD Technologist: JEAN CARLOS CANAS RT (R); Cathi Brock Trnscrd Date/Time/By: 10/08/2018 () : By: [email or web address] Orig Print D/T: S: 10/08/2018 (1922) PAGE 1 Signed Report ARTERIAL BLOOD [id number] 19:10:00* Test Item Value Reference Range Interpretation Comments ARTERIAL BLOOD GAS PH (test code = PHA) 7.36 7.35-7.45 N ARTERIAL BLOOD GAS PCO2 (test code = PCO2A) 37.0 mm Hg 35-45 N ARTERIAL BLOOD GAS PO2 (test code = PO2A) 115.8 mmHg 80-100 H BICARBONATE TOTAL HCO3 (test code = HCO3) 20.6 mmol/L 23.0-27.0 L BASE EXCESS (test code = TERRENCE) -4.3 mmol/L -3.0-5.0 LL Results called to and read back by dinh 19:09 - 10/08/2018; by misael ABG O2 SATURATION (test code = SATA) 97.6 % 90.0-98.0 N ABG TYPE (test code = TYPEA) Arterial FIO2 (test code = FIO2A) 80.0 ABG VENT MODE (test code = MODEA) Assist Control ABG VENT RESP RATE (test code = RRA) 16.0 per min ABG TIDAL VOLUME (test code = TVA) 450.0 mL ABG PEEP (test code = PEEPA) 5.0 cmH2O ABG SITE (test code = SITEA) ARTERIAL LINE HEMATOCRIT (test code = HCT/ABG) 27 % 35-47 L TOTAL HGB (test code = THB) 9.3 gram/dL 11.5-15.5 L HGB O2 SAT (test code = HBOSAT) 97.0 % 94.00-98.00 N CARBOXYHEMOGLOBIN (test code = HOHGBT) 0.1 %totalHg 0.5-1.5 LL Results called to and read back by dinh 19:09 - 10/08/2018; by misael METHEMOGLOBIN (test code = METHGB) 0.5 % 0.0-1.50 N O2 CONTENT (test code = O2CT) 12.9 % vol 18.0-22.0 L CBC W/MANUAL [id number] 10:49:00* Test Item Value Reference Range Interpretation Comments WHITE BLOOD CELL (test code = WBC) 11.8 K/mm3 4.5-12.5 N RED BLOOD CELL (test code = RBC) 3.98 mill/mm3 3.7-5.2 N HEMOGLOBIN (test code = HGB) 10.1 gram/dL 11.5-15.5 L HEMATOCRIT (test code = HCT) 34.7 % 36.0-46.0 L MEAN CELL VOLUME (test code = MCV) 87.2 fL 80-98 N MEAN CELL HGB (test code = MCH) 25.4 picogram 27.0-33.0 L MEAN CELL HGB CONCETRATION (test code = MCHC) 29.1 gram/dL 33.0-36. 0 L RED CELL DISTRIBUTION WIDTH (test code = RDW) 21.1 % 11.6-16. 2 H RED CELL DISTRIBUTION WIDTH SD (test code = RDW-SD) 66.4 fL 37 .0-51.0 H PLATELET COUNT (test code = PLT) 99 K/mm3 150-450 L IMMATURE GRANULOCYTE % (test code = IG%) 0.6 % 0.0-5.0 N NUCLEATED RBC % (test code = NRBC%) 0.0 % 0-0 N NEUTROPHIL # (test code = NT#) 9.80 K/mm3 1.8-7.7 H IMMATURE GRANULOCYTE # (test code = IG#) 0.07 x10 3/uL 0-0.03 H LYMPHOCYTE # (test code = LY#) 1.25 K/mm3 1.0-5.0 N MONOCYTE # (test code = MO#) 0.70 K/mm3 0-0.8 N EOSINOPHIL # (test code = EO#) 0.01 K/mm3 0.0-0.5 N BASOPHIL # (test code = BA#) 0.01 K/mm3 0.0-0.2 N NUCLEATED RBC # (test code = NRBC#) 0.00 K/mm3 0.0-0.1 N MANUAL DIFF REQUIRED (test code = MDIFF) YES STAIN ACCEPTABILITY (test code = STN ACCEPTABLE) STAIN ACCEPTABLE TOTAL CELLS COUNTED (test code = TCC) 115 #CELLS SEGMENTED NEUTROPHILS (test code = SEG) 80.9 % 39-69 H BAND NEUTROPHIL (test code = BAND) 1.7 % 0-10 N LYMPHOCYTE (test code = LYMPH) 9.6 % 25-55 L REACTIVE LYMPH (test code = RELYMPH) 1.7 % MONOCYTE (test code = MON) 6.1 % 0-10 N EOSINOPHIL (test code = EOS) 0 % 0.0-5.0 N BASOPHIL (test code = BASO) 0 % 0-1.0 N METAMYELOCYTE (test code = META) 0 % 0-0 N MYELOCYTE (test code = MYELO) 0 % 0.0-0.0 N PROMYELOCYTE (test code = PROM) 0 % 0-0 N POLYCHROMASIA (test code = POLC) 1+ HYPOCHROMIA (test code = HYPO) 1+ POIKILOCYTOSIS (test code = POIK) 2+ ANISOCYTOSIS (test code = ANISO) 2+ PLATELET ESTIMATE (test code = PLTEST) DECREASED PLATELET MORPHOLOGY (test code = PLTMORPH) SIZE VARIABLE IMMATURE FORMS (test code = IMMAT) 0 % BASIC METABOLIC [id number] 07:53:00* Test Item Value Reference Range Interpretation Comments SODIUM (test code = NA) 139 mmol/L 136-145 RESU LT VERIFIED BY REPEAT ANALYSIS POTASSIUM (test code = K) 5.1 mmol/L 3.5-5.1 N CHLORIDE (test code = CL) 109.0 mmol/L 98-107 H CARBON DIOXIDE (test code = CO2) 22.0 mmol/L 21-32 N ANION GAP (test code = GAP) 13.1 10-20 N GLUCOSE (test code = GLU) 79 mg/dL 74-106 N BLOOD UREA NITROGEN (test code = BUN) 51 mg/dL 7-18 H GLOMERULAR FILTRATION RATE (test code = GFR) 31 mL/min >=60 Estimated GFR by using Modified MDRD formula.Chronic kidney disease is defined as either kidney damageor GFR <60 mL/min/1.73 m2 for >3 months. CREATININE (test code = CREAT) 1.70 mg/dL 0.55-1.02 H Note change in reference range due to change in reagent. BUN/CREATININE RATIO (test code = BUN/CREA) 30.0 10-20 H CALCIUM (test code = CA) 9.5 mg/dL 8.5-10.1 N BLOOD UREA [id number] 07:35:00* Test Item Value Reference Range Interpretation Comments BLOOD UREA NITROGEN (test code = BUN) 52 mg/dL 7-18 H [id number] 07:35:00* Test Item Value Reference Range Interpretation Comments CREATININE (test code = CREAT) 1.70 mg/dL 0.55-1.02 H Note change in reference range due to change in reagent. CBC W/MANUAL [id number] 07:29:00* Test Item Value Reference Range Interpretation Comments WHITE BLOOD CELL (test code = WBC) 11.8 K/mm3 4.5-12.5 N RED BLOOD CELL (test code = RBC) 3.98 mill/mm3 3.7-5.2 N HEMOGLOBIN (test code = HGB) 10.1 gram/dL 11.5-15.5 L HEMATOCRIT (test code = HCT) 34.7 % 36.0-46.0 L MEAN CELL VOLUME (test code = MCV) 87.2 fL 80-98 N MEAN CELL HGB (test code = MCH) 25.4 picogram 27.0-33.0 L MEAN CELL HGB CONCETRATION (test code = MCHC) 29.1 gram/dL 33.0-36. 0 L RED CELL DISTRIBUTION WIDTH (test code = RDW) 21.1 % 11.6-16. 2 H RED CELL DISTRIBUTION WIDTH SD (test code = RDW-SD) 66.4 fL 37 .0-51.0 H PLATELET COUNT (test code = PLT) 99 K/mm3 150-450 L IMMATURE GRANULOCYTE % (test code = IG%) 0.6 % 0.0-5.0 N NUCLEATED RBC % (test code = NRBC%) 0.0 % 0-0 N NEUTROPHIL # (test code = NT#) 9.80 K/mm3 1.8-7.7 H IMMATURE GRANULOCYTE # (test code = IG#) 0.07 x10 3/uL 0-0.03 H LYMPHOCYTE # (test code = LY#) 1.25 K/mm3 1.0-5.0 N MONOCYTE # (test code = MO#) 0.70 K/mm3 0-0.8 N EOSINOPHIL # (test code = EO#) 0.01 K/mm3 0.0-0.5 N BASOPHIL # (test code = BA#) 0.01 K/mm3 0.0-0.2 N NUCLEATED RBC # (test code = NRBC#) 0.00 K/mm3 0.0-0.1 N MANUAL DIFF REQUIRED (test code = MDIFF) YES STAIN ACCEPTABILITY (test code = STN ACCEPTABLE) TOTAL CELLS COUNTED (test code = TCC) #CELLS SEGMENTED NEUTROPHILS (test code = SEG) % 39-69 LYMPHOCYTE (test code = LYMPH) % 25-55 MONOCYTE (test code = MON) % 0-10 EOSINOPHIL (test code = EOS) % 0.0-5.0 CABOT RINGS (test code = CAB) MORPHOLOGY COMMENT (test code = MOC) PLATELET ESTIMATE (test code = PLTEST) PLATELET MORPHOLOGY (test code = PLTMORPH) CBC W/MANUAL [id number] 07:29:00* Test Item Value Reference Range Interpretation Comments WHITE BLOOD CELL (test code = WBC) 11.8 K/mm3 4.5-12.5 N RED BLOOD CELL (test code = RBC) 3.98 mill/mm3 3.7-5.2 N HEMOGLOBIN (test code = HGB) 10.1 gram/dL 11.5-15.5 L HEMATOCRIT (test code = HCT) 34.7 % 36.0-46.0 L MEAN CELL VOLUME (test code = MCV) 87.2 fL 80-98 N MEAN CELL HGB (test code = MCH) 25.4 picogram 27.0-33.0 L MEAN CELL HGB CONCETRATION (test code = MCHC) 29.1 gram/dL 33.0-36. 0 L RED CELL DISTRIBUTION WIDTH (test code = RDW) 21.1 % 11.6-16. 2 H RED CELL DISTRIBUTION WIDTH SD (test code = RDW-SD) 66.4 fL 37 .0-51.0 H PLATELET COUNT (test code = PLT) 99 K/mm3 150-450 L IMMATURE GRANULOCYTE % (test code = IG%) 0.6 % 0.0-5.0 N NUCLEATED RBC % (test code = NRBC%) 0.0 % 0-0 N NEUTROPHIL # (test code = NT#) 9.80 K/mm3 1.8-7.7 H IMMATURE GRANULOCYTE # (test code = IG#) 0.07 x10 3/uL 0-0.03 H LYMPHOCYTE # (test code = LY#) 1.25 K/mm3 1.0-5.0 N MONOCYTE # (test code = MO#) 0.70 K/mm3 0-0.8 N EOSINOPHIL # (test code = EO#) 0.01 K/mm3 0.0-0.5 N BASOPHIL # (test code = BA#) 0.01 K/mm3 0.0-0.2 N NUCLEATED RBC # (test code = NRBC#) 0.00 K/mm3 0.0-0.1 N MANUAL DIFF REQUIRED (test code = MDIFF) YES STAIN ACCEPTABILITY (test code = STN ACCEPTABLE) TOTAL CELLS COUNTED (test code = TCC) #CELLS SEGMENTED NEUTROPHILS (test code = SEG) % 39-69 LYMPHOCYTE (test code = LYMPH) % 25-55 MONOCYTE (test code = MON) % 0-10 EOSINOPHIL (test code = EOS) % 0.0-5.0 CABOT RINGS (test code = CAB) MORPHOLOGY COMMENT (test code = MOC) PLATELET ESTIMATE (test code = PLTEST) PLATELET MORPHOLOGY (test code = PLTMORPH) CBC W/MANUAL [id number] 07:29:00* Test Item Value Reference Range Interpretation Comments WHITE BLOOD CELL (test code = WBC) 11.8 K/mm3 4.5-12.5 N RED BLOOD CELL (test code = RBC) 3.98 mill/mm3 3.7-5.2 N HEMOGLOBIN (test code = HGB) 10.1 gram/dL 11.5-15.5 L HEMATOCRIT (test code = HCT) 34.7 % 36.0-46.0 L MEAN CELL VOLUME (test code = MCV) 87.2 fL 80-98 N MEAN CELL HGB (test code = MCH) 25.4 picogram 27.0-33.0 L MEAN CELL HGB CONCETRATION (test code = MCHC) 29.1 gram/dL 33.0-36. 0 L RED CELL DISTRIBUTION WIDTH (test code = RDW) 21.1 % 11.6-16. 2 H RED CELL DISTRIBUTION WIDTH SD (test code = RDW-SD) 66.4 fL 37 .0-51.0 H PLATELET COUNT (test code = PLT) 99 K/mm3 150-450 L IMMATURE GRANULOCYTE % (test code = IG%) 0.6 % 0.0-5.0 N NUCLEATED RBC % (test code = NRBC%) 0.0 % 0-0 N NEUTROPHIL # (test code = NT#) 9.80 K/mm3 1.8-7.7 H IMMATURE GRANULOCYTE # (test code = IG#) 0.07 x10 3/uL 0-0.03 H LYMPHOCYTE # (test code = LY#) 1.25 K/mm3 1.0-5.0 N MONOCYTE # (test code = MO#) 0.70 K/mm3 0-0.8 N EOSINOPHIL # (test code = EO#) 0.01 K/mm3 0.0-0.5 N BASOPHIL # (test code = BA#) 0.01 K/mm3 0.0-0.2 N NUCLEATED RBC # (test code = NRBC#) 0.00 K/mm3 0.0-0.1 N MANUAL DIFF REQUIRED (test code = MDIFF) YES STAIN ACCEPTABILITY (test code = STN ACCEPTABLE) TOTAL CELLS COUNTED (test code = TCC) #CELLS SEGMENTED NEUTROPHILS (test code = SEG) % 39-69 LYMPHOCYTE (test code = LYMPH) % 25-55 MONOCYTE (test code = MON) % 0-10 EOSINOPHIL (test code = EOS) % 0.0-5.0 MORPHOLOGY COMMENT (test code = MOC) PLATELET ESTIMATE (test code = PLTEST) PLATELET MORPHOLOGY (test code = PLTMORPH) CBC W/MANUAL [id number] 07:29:00* Test Item Value Reference Range Interpretation Comments WHITE BLOOD CELL (test code = WBC) 11.8 K/mm3 4.5-12.5 N RED BLOOD CELL (test code = RBC) 3.98 mill/mm3 3.7-5.2 N HEMOGLOBIN (test code = HGB) 10.1 gram/dL 11.5-15.5 L HEMATOCRIT (test code = HCT) 34.7 % 36.0-46.0 L MEAN CELL VOLUME (test code = MCV) 87.2 fL 80-98 N MEAN CELL HGB (test code = MCH) 25.4 picogram 27.0-33.0 L MEAN CELL HGB CONCETRATION (test code = MCHC) 29.1 gram/dL 33.0-36. 0 L RED CELL DISTRIBUTION WIDTH (test code = RDW) 21.1 % 11.6-16. 2 H RED CELL DISTRIBUTION WIDTH SD (test code = RDW-SD) 66.4 fL 37 .0-51.0 H PLATELET COUNT (test code = PLT) 99 K/mm3 150-450 L IMMATURE GRANULOCYTE % (test code = IG%) 0.6 % 0.0-5.0 N NUCLEATED RBC % (test code = NRBC%) 0.0 % 0-0 N NEUTROPHIL # (test code = NT#) 9.80 K/mm3 1.8-7.7 H IMMATURE GRANULOCYTE # (test code = IG#) 0.07 x10 3/uL 0-0.03 H LYMPHOCYTE # (test code = LY#) 1.25 K/mm3 1.0-5.0 N MONOCYTE # (test code = MO#) 0.70 K/mm3 0-0.8 N EOSINOPHIL # (test code = EO#) 0.01 K/mm3 0.0-0.5 N BASOPHIL # (test code = BA#) 0.01 K/mm3 0.0-0.2 N NUCLEATED RBC # (test code = NRBC#) 0.00 K/mm3 0.0-0.1 N MANUAL DIFF REQUIRED (test code = MDIFF) YES STAIN ACCEPTABILITY (test code = STN ACCEPTABLE) TOTAL CELLS COUNTED (test code = TCC) #CELLS SEGMENTED NEUTROPHILS (test code = SEG) % 39-69 LYMPHOCYTE (test code = LYMPH) % 25-55 MONOCYTE (test code = MON) % 0-10 MORPHOLOGY COMMENT (test code = MOC) PLATELET ESTIMATE (test code = PLTEST) PLATELET MORPHOLOGY (test code = PLTMORPH) CBC W/MANUAL [id number] 07:29:00* Test Item Value Reference Range Interpretation Comments WHITE BLOOD CELL (test code = WBC) 11.8 K/mm3 4.5-12.5 N RED BLOOD CELL (test code = RBC) 3.98 mill/mm3 3.7-5.2 N HEMOGLOBIN (test code = HGB) 10.1 gram/dL 11.5-15.5 L HEMATOCRIT (test code = HCT) 34.7 % 36.0-46.0 L MEAN CELL VOLUME (test code = MCV) 87.2 fL 80-98 N MEAN CELL HGB (test code = MCH) 25.4 picogram 27.0-33.0 L MEAN CELL HGB CONCETRATION (test code = MCHC) 29.1 gram/dL 33.0-36. 0 L RED CELL DISTRIBUTION WIDTH (test code = RDW) 21.1 % 11.6-16. 2 H RED CELL DISTRIBUTION WIDTH SD (test code = RDW-SD) 66.4 fL 37 .0-51.0 H PLATELET COUNT (test code = PLT) 99 K/mm3 150-450 L IMMATURE GRANULOCYTE % (test code = IG%) 0.6 % 0.0-5.0 N NUCLEATED RBC % (test code = NRBC%) 0.0 % 0-0 N NEUTROPHIL # (test code = NT#) 9.80 K/mm3 1.8-7.7 H IMMATURE GRANULOCYTE # (test code = IG#) 0.07 x10 3/uL 0-0.03 H LYMPHOCYTE # (test code = LY#) 1.25 K/mm3 1.0-5.0 N MONOCYTE # (test code = MO#) 0.70 K/mm3 0-0.8 N EOSINOPHIL # (test code = EO#) 0.01 K/mm3 0.0-0.5 N BASOPHIL # (test code = BA#) 0.01 K/mm3 0.0-0.2 N NUCLEATED RBC # (test code = NRBC#) 0.00 K/mm3 0.0-0.1 N MANUAL DIFF REQUIRED (test code = MDIFF) YES STAIN ACCEPTABILITY (test code = STN ACCEPTABLE) TOTAL CELLS COUNTED (test code = TCC) #CELLS SEGMENTED NEUTROPHILS (test code = SEG) % 39-69 LYMPHOCYTE (test code = LYMPH) % 25-55 MONOCYTE (test code = MON) % 0-10 EOSINOPHIL (test code = EOS) % 0.0-5.0 CABOT RINGS (test code = CAB) MORPHOLOGY COMMENT (test code = MOC) PLATELET ESTIMATE (test code = PLTEST) PLATELET MORPHOLOGY (test code = PLTMORPH) - US ABDOMEN [id number] 10:43:00 Name: SIOBHAN BARBOSA [facility] : 1965 Age/S: 53 / F [address] Unit #: [id number] Loc: [place] [address] Phys: Charito Leroy MD Acct: [id number] Dis Date: Status: DIS IN PHONE #: [phone] Exam Date: 10/06/2018 1622 FAX #: [phone] Reason: RULE OUT ABSCESS Report Has Been Amended EXAMS: CPT CODE: [id number] US ABDOMEN LTD [id number] Addendum - 10/07/2018 SIGNED 04/18/2019 ADDENDUM: [id number] US/USABDLTD IMPRESSION CORRECTION SHOULD SAY THE LEFT FLANK REGION at 1337 Reported and signed by: Jameel Alvarez M.D. Transcribed: 10/07/2018 (1010) VMANNYPDC Report EXAM: Ultrasound abdomen, limited; INFORMATION: Left perinephric abscess; status post percutaneous drainage with partial evacuation. IMPRESSION: Limited ultrasound of the right flank region shows a large irregular and partially loculated fluid collection consistent with residual abscess. at 1945 Reported and signed by: Jameel Alvarez M.D. CC: Charito Leroy MD Technologist: WILLIAM MARIE(R),RDMS Trnscb Date/Time: (1944) MengGRW Orig Print D/T: S: 10/06/2018 ( 1947) Probe: PAGE 1 Signed Repo rt CBC W/MANUAL [id number] 08:29:00* Test Item Value Reference Range Interpretation Comments WHITE BLOOD CELL (test code = WBC) 10.7 K/mm3 4.5-12.5 N RED BLOOD CELL (test code = RBC) 3.85 mill/mm3 3.7-5.2 N HEMOGLOBIN (test code = HGB) 9.7 gram/dL 11.5-15.5 L HEMATOCRIT (test code = HCT) 33.5 % 36.0-46.0 L MEAN CELL VOLUME (test code = MCV) 87.0 fL 80-98 N MEAN CELL HGB (test code = MCH) 25.2 picogram 27.0-33.0 L MEAN CELL HGB CONCETRATION (test code = MCHC) 29.0 gram/dL 33.0-36. 0 L RED CELL DISTRIBUTION WIDTH (test code = RDW) 21.1 % 11.6-16. 2 H RED CELL DISTRIBUTION WIDTH SD (test code = RDW-SD) 66.5 fL 37 .0-51.0 H PLATELET COUNT (test code = PLT) 85 K/mm3 150-450 L MEAN PLATELET VOLUME (test code = MPV) 13.1 fL 6.7-11.0 H IMMATURE GRANULOCYTE % (test code = IG%) 0.5 % 0.0-5.0 N NUCLEATED RBC % (test code = NRBC%) 0.0 % 0-0 N NEUTROPHIL # (test code = NT#) 8.48 K/mm3 1.8-7.7 H IMMATURE GRANULOCYTE # (test code = IG#) 0.05 x10 3/uL 0-0.03 H LYMPHOCYTE # (test code = LY#) 1.36 K/mm3 1.0-5.0 N MONOCYTE # (test code = MO#) 0.76 K/mm3 0-0.8 N EOSINOPHIL # (test code = EO#) 0.00 K/mm3 0.0-0.5 N BASOPHIL # (test code = BA#) 0.02 K/mm3 0.0-0.2 N NUCLEATED RBC # (test code = NRBC#) 0.00 K/mm3 0.0-0.1 N MANUAL DIFF REQUIRED (test code = MDIFF) YES STAIN ACCEPTABILITY (test code = STN ACCEPTABLE) STAIN ACCEPTABLE TOTAL CELLS COUNTED (test code = TCC) 100 #CELLS SEGMENTED NEUTROPHILS (test code = SEG) 79 % 39-69 H LYMPHOCYTE (test code = LYMPH) 16 % 25-55 L MONOCYTE (test code = MON) 5 % 0-10 N MORPHOLOGY COMMENT (test code = MOC) NORMAL PLATELET ESTIMATE (test code = PLTEST) DECREASED PLATELET MORPHOLOGY (test code = PLTMORPH) SIZE VARIABLE BASIC METABOLIC [id number] 08:21:00* Test Item Value Reference Range Interpretation Comments SODIUM (test code = NA) 144 mmol/L 136-145 N POTASSIUM (test code = K) 5.2 mmol/L 3.5-5.1 H CHLORIDE (test code = CL) 113.0 mmol/L 98-107 H CARBON DIOXIDE (test code = CO2) 25.0 mmol/L 21-32 N ANION GAP (test code = GAP) 11.2 10-20 N GLUCOSE (test code = GLU) 99 mg/dL 74-106 N BLOOD UREA NITROGEN (test code = BUN) 45 mg/dL 7-18 H GLOMERULAR FILTRATION RATE (test code = GFR) 31 mL/min >=60 Estimated GFR by using Modified MDRD formula.Chronic kidney disease is defined as either kidney damageor GFR <60 mL/min/1.73 m2 for >3 months. CREATININE (test code = CREAT) 1.70 mg/dL 0.55-1.02 H Note change in reference range due to change in reagent. BUN/CREATININE RATIO (test code = BUN/CREA) 26.5 10-20 H CALCIUM (test code = CA) 9.6 mg/dL 8.5-10.1 N HAS A LINE, COME BACK AFTER 7 PER RN V.LAB.SS1 10/07/[id number] W/MANUAL DIFF 2018-10-07 07:56:00* Test Item Value Reference Range Interpretation Comments WHITE BLOOD CELL (test code = WBC) 10.7 K/mm3 4.5-12.5 N RED BLOOD CELL (test code = RBC) 3.85 mill/mm3 3.7-5.2 N HEMOGLOBIN (test code = HGB) 9.7 gram/dL 11.5-15.5 L HEMATOCRIT (test code = HCT) 33.5 % 36.0-46.0 L MEAN CELL VOLUME (test code = MCV) 87.0 fL 80-98 N MEAN CELL HGB (test code = MCH) 25.2 picogram 27.0-33.0 L MEAN CELL HGB CONCETRATION (test code = MCHC) 29.0 gram/dL 33.0-36. 0 L RED CELL DISTRIBUTION WIDTH (test code = RDW) 21.1 % 11.6-16. 2 H RED CELL DISTRIBUTION WIDTH SD (test code = RDW-SD) 66.5 fL 37 .0-51.0 H PLATELET COUNT (test code = PLT) 85 K/mm3 150-450 L MEAN PLATELET VOLUME (test code = MPV) 13.1 fL 6.7-11.0 H IMMATURE GRANULOCYTE % (test code = IG%) 0.5 % 0.0-5.0 N NUCLEATED RBC % (test code = NRBC%) 0.0 % 0-0 N NEUTROPHIL # (test code = NT#) 8.48 K/mm3 1.8-7.7 H IMMATURE GRANULOCYTE # (test code = IG#) 0.05 x10 3/uL 0-0.03 H LYMPHOCYTE # (test code = LY#) 1.36 K/mm3 1.0-5.0 N MONOCYTE # (test code = MO#) 0.76 K/mm3 0-0.8 N EOSINOPHIL # (test code = EO#) 0.00 K/mm3 0.0-0.5 N BASOPHIL # (test code = BA#) 0.02 K/mm3 0.0-0.2 N NUCLEATED RBC # (test code = NRBC#) 0.00 K/mm3 0.0-0.1 N MANUAL DIFF REQUIRED (test code = MDIFF) YES STAIN ACCEPTABILITY (test code = STN ACCEPTABLE) TOTAL CELLS COUNTED (test code = TCC) #CELLS SEGMENTED NEUTROPHILS (test code = SEG) % 39-69 LYMPHOCYTE (test code = LYMPH) % 25-55 MONOCYTE (test code = MON) % 0-10 EOSINOPHIL (test code = EOS) % 0.0-5.0 CABOT RINGS (test code = CAB) MORPHOLOGY COMMENT (test code = MOC) PLATELET ESTIMATE (test code = PLTEST) PLATELET MORPHOLOGY (test code = PLTMORPH) CBC W/MANUAL [id number] 07:56:00* Test Item Value Reference Range Interpretation Comments WHITE BLOOD CELL (test code = WBC) 10.7 K/mm3 4.5-12.5 N RED BLOOD CELL (test code = RBC) 3.85 mill/mm3 3.7-5.2 N HEMOGLOBIN (test code = HGB) 9.7 gram/dL 11.5-15.5 L HEMATOCRIT (test code = HCT) 33.5 % 36.0-46.0 L MEAN CELL VOLUME (test code = MCV) 87.0 fL 80-98 N MEAN CELL HGB (test code = MCH) 25.2 picogram 27.0-33.0 L MEAN CELL HGB CONCETRATION (test code = MCHC) 29.0 gram/dL 33.0-36. 0 L RED CELL DISTRIBUTION WIDTH (test code = RDW) 21.1 % 11.6-16. 2 H RED CELL DISTRIBUTION WIDTH SD (test code = RDW-SD) 66.5 fL 37 .0-51.0 H PLATELET COUNT (test code = PLT) 85 K/mm3 150-450 L MEAN PLATELET VOLUME (test code = MPV) 13.1 fL 6.7-11.0 H IMMATURE GRANULOCYTE % (test code = IG%) 0.5 % 0.0-5.0 N NUCLEATED RBC % (test code = NRBC%) 0.0 % 0-0 N NEUTROPHIL # (test code = NT#) 8.48 K/mm3 1.8-7.7 H IMMATURE GRANULOCYTE # (test code = IG#) 0.05 x10 3/uL 0-0.03 H LYMPHOCYTE # (test code = LY#) 1.36 K/mm3 1.0-5.0 N MONOCYTE # (test code = MO#) 0.76 K/mm3 0-0.8 N EOSINOPHIL # (test code = EO#) 0.00 K/mm3 0.0-0.5 N BASOPHIL # (test code = BA#) 0.02 K/mm3 0.0-0.2 N NUCLEATED RBC # (test code = NRBC#) 0.00 K/mm3 0.0-0.1 N MANUAL DIFF REQUIRED (test code = MDIFF) YES STAIN ACCEPTABILITY (test code = STN ACCEPTABLE) TOTAL CELLS COUNTED (test code = TCC) #CELLS SEGMENTED NEUTROPHILS (test code = SEG) % 39-69 LYMPHOCYTE (test code = LYMPH) % 25-55 MONOCYTE (test code = MON) % 0-10 EOSINOPHIL (test code = EOS) % 0.0-5.0 MORPHOLOGY COMMENT (test code = MOC) PLATELET ESTIMATE (test code = PLTEST) PLATELET MORPHOLOGY (test code = PLTMORPH) CBC W/MANUAL [id number] 07:56:00* Test Item Value Reference Range Interpretation Comments WHITE BLOOD CELL (test code = WBC) 10.7 K/mm3 4.5-12.5 N RED BLOOD CELL (test code = RBC) 3.85 mill/mm3 3.7-5.2 N HEMOGLOBIN (test code = HGB) 9.7 gram/dL 11.5-15.5 L HEMATOCRIT (test code = HCT) 33.5 % 36.0-46.0 L MEAN CELL VOLUME (test code = MCV) 87.0 fL 80-98 N MEAN CELL HGB (test code = MCH) 25.2 picogram 27.0-33.0 L MEAN CELL HGB CONCETRATION (test code = MCHC) 29.0 gram/dL 33.0-36. 0 L RED CELL DISTRIBUTION WIDTH (test code = RDW) 21.1 % 11.6-16. 2 H RED CELL DISTRIBUTION WIDTH SD (test code = RDW-SD) 66.5 fL 37 .0-51.0 H PLATELET COUNT (test code = PLT) 85 K/mm3 150-450 L MEAN PLATELET VOLUME (test code = MPV) 13.1 fL 6.7-11.0 H IMMATURE GRANULOCYTE % (test code = IG%) 0.5 % 0.0-5.0 N NUCLEATED RBC % (test code = NRBC%) 0.0 % 0-0 N NEUTROPHIL # (test code = NT#) 8.48 K/mm3 1.8-7.7 H IMMATURE GRANULOCYTE # (test code = IG#) 0.05 x10 3/uL 0-0.03 H LYMPHOCYTE # (test code = LY#) 1.36 K/mm3 1.0-5.0 N MONOCYTE # (test code = MO#) 0.76 K/mm3 0-0.8 N EOSINOPHIL # (test code = EO#) 0.00 K/mm3 0.0-0.5 N BASOPHIL # (test code = BA#) 0.02 K/mm3 0.0-0.2 N NUCLEATED RBC # (test code = NRBC#) 0.00 K/mm3 0.0-0.1 N MANUAL DIFF REQUIRED (test code = MDIFF) YES STAIN ACCEPTABILITY (test code = STN ACCEPTABLE) TOTAL CELLS COUNTED (test code = TCC) #CELLS SEGMENTED NEUTROPHILS (test code = SEG) % 39-69 LYMPHOCYTE (test code = LYMPH) % 25-55 MONOCYTE (test code = MON) % 0-10 MORPHOLOGY COMMENT (test code = MOC) PLATELET ESTIMATE (test code = PLTEST) PLATELET MORPHOLOGY (test code = PLTMORPH) CBC W/MANUAL [id number] 07:55:00* Test Item Value Reference Range Interpretation Comments WHITE BLOOD CELL (test code = WBC) 10.7 K/mm3 4.5-12.5 N RED BLOOD CELL (test code = RBC) 3.85 mill/mm3 3.7-5.2 N HEMOGLOBIN (test code = HGB) 9.7 gram/dL 11.5-15.5 L HEMATOCRIT (test code = HCT) 33.5 % 36.0-46.0 L MEAN CELL VOLUME (test code = MCV) 87.0 fL 80-98 N MEAN CELL HGB (test code = MCH) 25.2 picogram 27.0-33.0 L MEAN CELL HGB CONCETRATION (test code = MCHC) 29.0 gram/dL 33.0-36. 0 L RED CELL DISTRIBUTION WIDTH (test code = RDW) 21.1 % 11.6-16. 2 H RED CELL DISTRIBUTION WIDTH SD (test code = RDW-SD) 66.5 fL 37 .0-51.0 H PLATELET COUNT (test code = PLT) 85 K/mm3 150-450 L MEAN PLATELET VOLUME (test code = MPV) 13.1 fL 6.7-11.0 H IMMATURE GRANULOCYTE % (test code = IG%) 0.5 % 0.0-5.0 N NUCLEATED RBC % (test code = NRBC%) 0.0 % 0-0 N NEUTROPHIL # (test code = NT#) 8.48 K/mm3 1.8-7.7 H IMMATURE GRANULOCYTE # (test code = IG#) 0.05 x10 3/uL 0-0.03 H LYMPHOCYTE # (test code = LY#) 1.36 K/mm3 1.0-5.0 N MONOCYTE # (test code = MO#) 0.76 K/mm3 0-0.8 N EOSINOPHIL # (test code = EO#) 0.00 K/mm3 0.0-0.5 N BASOPHIL # (test code = BA#) 0.02 K/mm3 0.0-0.2 N NUCLEATED RBC # (test code = NRBC#) 0.00 K/mm3 0.0-0.1 N MANUAL DIFF REQUIRED (test code = MDIFF) YES STAIN ACCEPTABILITY (test code = STN ACCEPTABLE) TOTAL CELLS COUNTED (test code = TCC) #CELLS SEGMENTED NEUTROPHILS (test code = SEG) % 39-69 LYMPHOCYTE (test code = LYMPH) % 25-55 MONOCYTE (test code = MON) % 0-10 EOSINOPHIL (test code = EOS) % 0.0-5.0 CABOT RINGS (test code = CAB) MORPHOLOGY COMMENT (test code = MOC) PLATELET ESTIMATE (test code = PLTEST) PLATELET MORPHOLOGY (test code = PLTMORPH) CBC W/MANUAL [id number] 07:55:00* Test Item Value Reference Range Interpretation Comments WHITE BLOOD CELL (test code = WBC) 10.7 K/mm3 4.5-12.5 N RED BLOOD CELL (test code = RBC) 3.85 mill/mm3 3.7-5.2 N HEMOGLOBIN (test code = HGB) 9.7 gram/dL 11.5-15.5 L HEMATOCRIT (test code = HCT) 33.5 % 36.0-46.0 L MEAN CELL VOLUME (test code = MCV) 87.0 fL 80-98 N MEAN CELL HGB (test code = MCH) 25.2 picogram 27.0-33.0 L MEAN CELL HGB CONCETRATION (test code = MCHC) 29.0 gram/dL 33.0-36. 0 L RED CELL DISTRIBUTION WIDTH (test code = RDW) 21.1 % 11.6-16. 2 H RED CELL DISTRIBUTION WIDTH SD (test code = RDW-SD) 66.5 fL 37 .0-51.0 H PLATELET COUNT (test code = PLT) 85 K/mm3 150-450 L MEAN PLATELET VOLUME (test code = MPV) 13.1 fL 6.7-11.0 H IMMATURE GRANULOCYTE % (test code = IG%) 0.5 % 0.0-5.0 N NUCLEATED RBC % (test code = NRBC%) 0.0 % 0-0 N NEUTROPHIL # (test code = NT#) 8.48 K/mm3 1.8-7.7 H IMMATURE GRANULOCYTE # (test code = IG#) 0.05 x10 3/uL 0-0.03 H LYMPHOCYTE # (test code = LY#) 1.36 K/mm3 1.0-5.0 N MONOCYTE # (test code = MO#) 0.76 K/mm3 0-0.8 N EOSINOPHIL # (test code = EO#) 0.00 K/mm3 0.0-0.5 N BASOPHIL # (test code = BA#) 0.02 K/mm3 0.0-0.2 N NUCLEATED RBC # (test code = NRBC#) 0.00 K/mm3 0.0-0.1 N MANUAL DIFF REQUIRED (test code = MDIFF) YES STAIN ACCEPTABILITY (test code = STN ACCEPTABLE) TOTAL CELLS COUNTED (test code = TCC) #CELLS SEGMENTED NEUTROPHILS (test code = SEG) % 39-69 LYMPHOCYTE (test code = LYMPH) % 25-55 MONOCYTE (test code = MON) % 0-10 EOSINOPHIL (test code = EOS) % 0.0-5.0 CABOT RINGS (test code = CAB) MORPHOLOGY COMMENT (test code = MOC) PLATELET ESTIMATE (test code = PLTEST) PLATELET MORPHOLOGY (test code = PLTMORPH) - US ABDOMEN [id number] 19:45:00 Name: SIOBHAN BARBOSA [facility] : 1965 Age/S: 53 / F [address] [facility] Unit #: [id number] Loc: [place] [address] Phys: Charito Leroy MD Acct: [id number] Dis Date: Status: ADM IN PHONE #: [phone] Exam Date: 10/06/2018 1622 FAX #: [phone] Reason: RULE OUT ABSCESS EXAMS: CPT CODE: [id number] US ABDOMEN LTD [id number] EXAM: Ultrasound abdomen, limited; INFORMATION: Left perinephric abscess; status post percutaneous drainage with partial evacuation. IMPRESSION: Limited ultrasound of the right flank region shows a large irregular and partially loculated fluid collection consistent with residual abscess. at 1945 Reported and signed by: Jameel Alvarez M.D. CC: Charito Leroy MD Technologist: WILLIAM MARIE RT(R),RDMS Trnscb Date/Time: 10/06/2018 (1944) [place] Orig Print D/T: S: 10/06/2018 (1947) Probe: PAGE 1 Signed Report HEPARIN INDUCED [id number] 18:29:00* Test Item Value Reference Range Interpretation Comments HEPARIN INDUCED THROMBOCYTOPEN (test code = HIT) NEGATIVE NEGAT STEVE CBC W/AUTO [id number] 12:08:00* Test Item Value Reference Range Interpretation Comments WHITE BLOOD CELL (test code = WBC) 7.1 K/mm3 4.5-12.5 N RED BLOOD CELL (test code = RBC) 3.31 mill/mm3 3.7-5.2 L HEMOGLOBIN (test code = HGB) 8.4 gram/dL 11.5-15.5 L HEMATOCRIT (test code = HCT) 29.5 % 36.0-46.0 L MEAN CELL VOLUME (test code = MCV) 89.1 fL 80-98 N MEAN CELL HGB (test code = MCH) 25.4 picogram 27.0-33.0 L MEAN CELL HGB CONCETRATION (test code = MCHC) 28.5 gram/dL 33.0-36. 0 L RED CELL DISTRIBUTION WIDTH (test code = RDW) 22.5 % 11.6-16. 2 H RED CELL DISTRIBUTION WIDTH SD (test code = RDW-SD) 72.6 fL 37 .0-51.0 H PLATELET COUNT (test code = PLT) 90 K/mm3 150-450 L MEAN PLATELET VOLUME (test code = MPV) 12.7 fL 6.7-11.0 H NEUTROPHIL % (test code = NT%) 75.0 % 39.0-69.0 H IMMATURE GRANULOCYTE % (test code = IG%) 0.3 % 0.0-5.0 N LYMPHOCYTE % (test code = LY%) 13.9 % 25.0-55.0 L MONOCYTE % (test code = MO%) 8.3 % 0.0-10.0 N EOSINOPHIL % (test code = EO%) 2.4 % 0.0-5.0 N BASOPHIL % (test code = BA%) 0.1 % 0.0-1.0 N NUCLEATED RBC % (test code = NRBC%) 0.0 % 0-0 N NEUTROPHIL # (test code = NT#) 5.36 K/mm3 1.8-7.7 N IMMATURE GRANULOCYTE # (test code = IG#) 0.02 x10 3/uL 0-0.03 N LYMPHOCYTE # (test code = LY#) 0.99 K/mm3 1.0-5.0 L MONOCYTE # (test code = MO#) 0.59 K/mm3 0-0.8 N EOSINOPHIL # (test code = EO#) 0.17 K/mm3 0.0-0.5 N BASOPHIL # (test code = BA#) 0.01 K/mm3 0.0-0.2 N NUCLEATED RBC # (test code = NRBC#) 0.00 K/mm3 0.0-0.1 N MANUAL DIFF REQUIRED (test code = MDIFF) NO, ONLY SCAN NEEDED DIFFERENTIAL [id number] 12:08:00* Test Item Value Reference Range Interpretation Comments STAIN ACCEPTABILITY (test code = STN ACCEPTABLE) STAIN ACCEPTABLE MORPHOLOGY COMMENT (test code = MOC) NORMAL PLATELET ESTIMATE (test code = PLTEST) DECREASED PLATELET MORPHOLOGY (test code = PLTMORPH) CBC W/AUTO [id number] 12:08:00* Test Item Value Reference Range Interpretation Comments WHITE BLOOD CELL (test code = WBC) 7.1 K/mm3 4.5-12.5 N RED BLOOD CELL (test code = RBC) 3.31 mill/mm3 3.7-5.2 L HEMOGLOBIN (test code = HGB) 8.4 gram/dL 11.5-15.5 L HEMATOCRIT (test code = HCT) 29.5 % 36.0-46.0 L MEAN CELL VOLUME (test code = MCV) 89.1 fL 80-98 N MEAN CELL HGB (test code = MCH) 25.4 picogram 27.0-33.0 L MEAN CELL HGB CONCETRATION (test code = MCHC) 28.5 gram/dL 33.0-36. 0 L RED CELL DISTRIBUTION WIDTH (test code = RDW) 22.5 % 11.6-16. 2 H RED CELL DISTRIBUTION WIDTH SD (test code = RDW-SD) 72.6 fL 37 .0-51.0 H PLATELET COUNT (test code = PLT) 90 K/mm3 150-450 L MEAN PLATELET VOLUME (test code = MPV) 12.7 fL 6.7-11.0 H NEUTROPHIL % (test code = NT%) 75.0 % 39.0-69.0 H IMMATURE GRANULOCYTE % (test code = IG%) 0.3 % 0.0-5.0 N LYMPHOCYTE % (test code = LY%) 13.9 % 25.0-55.0 L MONOCYTE % (test code = MO%) 8.3 % 0.0-10.0 N EOSINOPHIL % (test code = EO%) 2.4 % 0.0-5.0 N BASOPHIL % (test code = BA%) 0.1 % 0.0-1.0 N NUCLEATED RBC % (test code = NRBC%) 0.0 % 0-0 N NEUTROPHIL # (test code = NT#) 5.36 K/mm3 1.8-7.7 N IMMATURE GRANULOCYTE # (test code = IG#) 0.02 x10 3/uL 0-0.03 N LYMPHOCYTE # (test code = LY#) 0.99 K/mm3 1.0-5.0 L MONOCYTE # (test code = MO#) 0.59 K/mm3 0-0.8 N EOSINOPHIL # (test code = EO#) 0.17 K/mm3 0.0-0.5 N BASOPHIL # (test code = BA#) 0.01 K/mm3 0.0-0.2 N NUCLEATED RBC # (test code = NRBC#) 0.00 K/mm3 0.0-0.1 N MANUAL DIFF REQUIRED (test code = MDIFF) NO, ONLY SCAN NEEDED DIFFERENTIAL [id number] 12:08:00* Test Item Value Reference Range Interpretation Comments STAIN ACCEPTABILITY (test code = STN ACCEPTABLE) STAIN ACCEPTABLE MORPHOLOGY COMMENT (test code = MOC) NORMAL PLATELET ESTIMATE (test code = PLTEST) DECREASED PLATELET MORPHOLOGY (test code = PLTMORPH) NORMAL CBC W/AUTO [id number] 12:07:00* Test Item Value Reference Range Interpretation Comments WHITE BLOOD CELL (test code = WBC) 7.1 K/mm3 4.5-12.5 N RED BLOOD CELL (test code = RBC) 3.31 mill/mm3 3.7-5.2 L HEMOGLOBIN (test code = HGB) 8.4 gram/dL 11.5-15.5 L HEMATOCRIT (test code = HCT) 29.5 % 36.0-46.0 L MEAN CELL VOLUME (test code = MCV) 89.1 fL 80-98 N MEAN CELL HGB (test code = MCH) 25.4 picogram 27.0-33.0 L MEAN CELL HGB CONCETRATION (test code = MCHC) 28.5 gram/dL 33.0-36. 0 L RED CELL DISTRIBUTION WIDTH (test code = RDW) 22.5 % 11.6-16. 2 H RED CELL DISTRIBUTION WIDTH SD (test code = RDW-SD) 72.6 fL 37 .0-51.0 H PLATELET COUNT (test code = PLT) 90 K/mm3 150-450 L MEAN PLATELET VOLUME (test code = MPV) 12.7 fL 6.7-11.0 H NEUTROPHIL % (test code = NT%) 75.0 % 39.0-69.0 H IMMATURE GRANULOCYTE % (test code = IG%) 0.3 % 0.0-5.0 N LYMPHOCYTE % (test code = LY%) 13.9 % 25.0-55.0 L MONOCYTE % (test code = MO%) 8.3 % 0.0-10.0 N EOSINOPHIL % (test code = EO%) 2.4 % 0.0-5.0 N BASOPHIL % (test code = BA%) 0.1 % 0.0-1.0 N NUCLEATED RBC % (test code = NRBC%) 0.0 % 0-0 N NEUTROPHIL # (test code = NT#) 5.36 K/mm3 1.8-7.7 N IMMATURE GRANULOCYTE # (test code = IG#) 0.02 x10 3/uL 0-0.03 N LYMPHOCYTE # (test code = LY#) 0.99 K/mm3 1.0-5.0 L MONOCYTE # (test code = MO#) 0.59 K/mm3 0-0.8 N EOSINOPHIL # (test code = EO#) 0.17 K/mm3 0.0-0.5 N BASOPHIL # (test code = BA#) 0.01 K/mm3 0.0-0.2 N NUCLEATED RBC # (test code = NRBC#) 0.00 K/mm3 0.0-0.1 N MANUAL DIFF REQUIRED (test code = MDIFF) NO, ONLY SCAN NEEDED DIFFERENTIAL [id number] 12:07:00* Test Item Value Reference Range Interpretation Comments STAIN ACCEPTABILITY (test code = STN ACCEPTABLE) STAIN ACCEPTABLE MORPHOLOGY COMMENT (test code = MOC) PLATELET ESTIMATE (test code = PLTEST) DECREASED PLATELET MORPHOLOGY (test code = PLTMORPH) BASIC METABOLIC [id number] 05:35:00* Test Item Value Reference Range Interpretation Comments SODIUM (test code = NA) 146 mmol/L 136-145 H POTASSIUM (test code = K) 4.5 mmol/L 3.5-5.1 N CHLORIDE (test code = CL) 115.0 mmol/L 98-107 H CARBON DIOXIDE (test code = CO2) 26.0 mmol/L 21-32 N ANION GAP (test code = GAP) 9.5 10-20 L GLUCOSE (test code = GLU) 141 mg/dL 74-106 H BLOOD UREA NITROGEN (test code = BUN) 35 mg/dL 7-18 H GLOMERULAR FILTRATION RATE (test code = GFR) 36 mL/min >=60 Estimated GFR by using Modified MDRD formula.Chronic kidney disease is defined as either kidney damageor GFR <60 mL/min/1.73 m2 for >3 months. CREATININE (test code = CREAT) 1.50 mg/dL 0.55-1.02 H Note change in reference range due to change in reagent. BUN/CREATININE RATIO (test code = BUN/CREA) 24.0 10-20 H CALCIUM (test code = CA) 9.5 mg/dL 8.5-10.1 N BASIC METABOLIC [id number] 05:26:00* Test Item Value Reference Range Interpretation Comments SODIUM (test code = NA) 146 mmol/L 136-145 H POTASSIUM (test code = K) 4.5 mmol/L 3.5-5.1 N CHLORIDE (test code = CL) 115.0 mmol/L 98-107 H CARBON DIOXIDE (test code = CO2) mmol/L 21-32 ANION GAP (test code = GAP) 10-20 GLUCOSE (test code = GLU) mg/dL 74-106 BLOOD UREA NITROGEN (test code = BUN) mg/dL 7-18 GLOMERULAR FILTRATION RATE (test code = GFR) mL/min >=60 CREATININE (test code = CREAT) mg/dL 0.55-1.02 BUN/CREATININE RATIO (test code = BUN/CREA) 10-20 CALCIUM (test code = CA) mg/dL 8.5-10.1 CBC W/AUTO [id number] 05:11:00* Test Item Value Reference Range Interpretation Comments WHITE BLOOD CELL (test code = WBC) 7.1 K/mm3 4.5-12.5 N RED BLOOD CELL (test code = RBC) 3.31 mill/mm3 3.7-5.2 L HEMOGLOBIN (test code = HGB) 8.4 gram/dL 11.5-15.5 L HEMATOCRIT (test code = HCT) 29.5 % 36.0-46.0 L MEAN CELL VOLUME (test code = MCV) 89.1 fL 80-98 N MEAN CELL HGB (test code = MCH) 25.4 picogram 27.0-33.0 L MEAN CELL HGB CONCETRATION (test code = MCHC) 28.5 gram/dL 33.0-36. 0 L RED CELL DISTRIBUTION WIDTH (test code = RDW) 22.5 % 11.6-16. 2 H RED CELL DISTRIBUTION WIDTH SD (test code = RDW-SD) 72.6 fL 37 .0-51.0 H PLATELET COUNT (test code = PLT) 90 K/mm3 150-450 L MEAN PLATELET VOLUME (test code = MPV) 12.7 fL 6.7-11.0 H NEUTROPHIL % (test code = NT%) 75.0 % 39.0-69.0 H IMMATURE GRANULOCYTE % (test code = IG%) 0.3 % 0.0-5.0 N LYMPHOCYTE % (test code = LY%) 13.9 % 25.0-55.0 L MONOCYTE % (test code = MO%) 8.3 % 0.0-10.0 N EOSINOPHIL % (test code = EO%) 2.4 % 0.0-5.0 N BASOPHIL % (test code = BA%) 0.1 % 0.0-1.0 N NUCLEATED RBC % (test code = NRBC%) 0.0 % 0-0 N NEUTROPHIL # (test code = NT#) 5.36 K/mm3 1.8-7.7 N IMMATURE GRANULOCYTE # (test code = IG#) 0.02 x10 3/uL 0-0.03 N LYMPHOCYTE # (test code = LY#) 0.99 K/mm3 1.0-5.0 L MONOCYTE # (test code = MO#) 0.59 K/mm3 0-0.8 N EOSINOPHIL # (test code = EO#) 0.17 K/mm3 0.0-0.5 N BASOPHIL # (test code = BA#) 0.01 K/mm3 0.0-0.2 N NUCLEATED RBC # (test code = NRBC#) 0.00 K/mm3 0.0-0.1 N MANUAL DIFF REQUIRED (test code = MDIFF) NO, ONLY SCAN NEEDED DIFFERENTIAL [id number] 05:11:00* Test Item Value Reference Range Interpretation Comments STAIN ACCEPTABILITY (test code = STN ACCEPTABLE) CABOT RINGS (test code = CAB) MORPHOLOGY COMMENT (test code = MOC) PLATELET ESTIMATE (test code = PLTEST) PLATELET MORPHOLOGY (test code = PLTMORPH) CBC W/AUTO [id number] 05:11:00* Test Item Value Reference Range Interpretation Comments WHITE BLOOD CELL (test code = WBC) 7.1 K/mm3 4.5-12.5 N RED BLOOD CELL (test code = RBC) 3.31 mill/mm3 3.7-5.2 L HEMOGLOBIN (test code = HGB) 8.4 gram/dL 11.5-15.5 L HEMATOCRIT (test code = HCT) 29.5 % 36.0-46.0 L MEAN CELL VOLUME (test code = MCV) 89.1 fL 80-98 N MEAN CELL HGB (test code = MCH) 25.4 picogram 27.0-33.0 L MEAN CELL HGB CONCETRATION (test code = MCHC) 28.5 gram/dL 33.0-36. 0 L RED CELL DISTRIBUTION WIDTH (test code = RDW) 22.5 % 11.6-16. 2 H RED CELL DISTRIBUTION WIDTH SD (test code = RDW-SD) 72.6 fL 37 .0-51.0 H PLATELET COUNT (test code = PLT) 90 K/mm3 150-450 L MEAN PLATELET VOLUME (test code = MPV) 12.7 fL 6.7-11.0 H NEUTROPHIL % (test code = NT%) 75.0 % 39.0-69.0 H IMMATURE GRANULOCYTE % (test code = IG%) 0.3 % 0.0-5.0 N LYMPHOCYTE % (test code = LY%) 13.9 % 25.0-55.0 L MONOCYTE % (test code = MO%) 8.3 % 0.0-10.0 N EOSINOPHIL % (test code = EO%) 2.4 % 0.0-5.0 N BASOPHIL % (test code = BA%) 0.1 % 0.0-1.0 N NUCLEATED RBC % (test code = NRBC%) 0.0 % 0-0 N NEUTROPHIL # (test code = NT#) 5.36 K/mm3 1.8-7.7 N IMMATURE GRANULOCYTE # (test code = IG#) 0.02 x10 3/uL 0-0.03 N LYMPHOCYTE # (test code = LY#) 0.99 K/mm3 1.0-5.0 L MONOCYTE # (test code = MO#) 0.59 K/mm3 0-0.8 N EOSINOPHIL # (test code = EO#) 0.17 K/mm3 0.0-0.5 N BASOPHIL # (test code = BA#) 0.01 K/mm3 0.0-0.2 N NUCLEATED RBC # (test code = NRBC#) 0.00 K/mm3 0.0-0.1 N MANUAL DIFF REQUIRED (test code = MDIFF) NO, ONLY SCAN NEEDED DIFFERENTIAL [id number] 05:11:00* Test Item Value Reference Range Interpretation Comments STAIN ACCEPTABILITY (test code = STN ACCEPTABLE) MORPHOLOGY COMMENT (test code = MOC) PLATELET ESTIMATE (test code = PLTEST) PLATELET MORPHOLOGY (test code = PLTMORPH) CBC W/AUTO [id number] 05:10:00* Test Item Value Reference Range Interpretation Comments WHITE BLOOD CELL (test code = WBC) 7.1 K/mm3 4.5-12.5 N RED BLOOD CELL (test code = RBC) 3.31 mill/mm3 3.7-5.2 L HEMOGLOBIN (test code = HGB) 8.4 gram/dL 11.5-15.5 L HEMATOCRIT (test code = HCT) 29.5 % 36.0-46.0 L MEAN CELL VOLUME (test code = MCV) 89.1 fL 80-98 N MEAN CELL HGB (test code = MCH) 25.4 picogram 27.0-33.0 L MEAN CELL HGB CONCETRATION (test code = MCHC) 28.5 gram/dL 33.0-36. 0 L RED CELL DISTRIBUTION WIDTH (test code = RDW) 22.5 % 11.6-16. 2 H RED CELL DISTRIBUTION WIDTH SD (test code = RDW-SD) 72.6 fL 37 .0-51.0 H PLATELET COUNT (test code = PLT) 90 K/mm3 150-450 L MEAN PLATELET VOLUME (test code = MPV) 12.7 fL 6.7-11.0 H NEUTROPHIL % (test code = NT%) 75.0 % 39.0-69.0 H IMMATURE GRANULOCYTE % (test code = IG%) 0.3 % 0.0-5.0 N LYMPHOCYTE % (test code = LY%) 13.9 % 25.0-55.0 L MONOCYTE % (test code = MO%) 8.3 % 0.0-10.0 N EOSINOPHIL % (test code = EO%) 2.4 % 0.0-5.0 N BASOPHIL % (test code = BA%) 0.1 % 0.0-1.0 N NUCLEATED RBC % (test code = NRBC%) 0.0 % 0-0 N NEUTROPHIL # (test code = NT#) 5.36 K/mm3 1.8-7.7 N IMMATURE GRANULOCYTE # (test code = IG#) 0.02 x10 3/uL 0-0.03 N LYMPHOCYTE # (test code = LY#) 0.99 K/mm3 1.0-5.0 L MONOCYTE # (test code = MO#) 0.59 K/mm3 0-0.8 N EOSINOPHIL # (test code = EO#) 0.17 K/mm3 0.0-0.5 N BASOPHIL # (test code = BA#) 0.01 K/mm3 0.0-0.2 N NUCLEATED RBC # (test code = NRBC#) 0.00 K/mm3 0.0-0.1 N MANUAL DIFF REQUIRED (test code = MDIFF) NO, ONLY SCAN NEEDED DIFFERENTIAL [id number] 05:10:00* Test Item Value Reference Range Interpretation Comments STAIN ACCEPTABILITY (test code = STN ACCEPTABLE) CABOT RINGS (test code = CAB) MORPHOLOGY COMMENT (test code = MOC) PLATELET ESTIMATE (test code = PLTEST) PLATELET MORPHOLOGY (test code = PLTMORPH) CBC W/AUTO [id number] 05:10:00* Test Item Value Reference Range Interpretation Comments WHITE BLOOD CELL (test code = WBC) 7.1 K/mm3 4.5-12.5 N RED BLOOD CELL (test code = RBC) 3.31 mill/mm3 3.7-5.2 L HEMOGLOBIN (test code = HGB) 8.4 gram/dL 11.5-15.5 L HEMATOCRIT (test code = HCT) 29.5 % 36.0-46.0 L MEAN CELL VOLUME (test code = MCV) 89.1 fL 80-98 N MEAN CELL HGB (test code = MCH) 25.4 picogram 27.0-33.0 L MEAN CELL HGB CONCETRATION (test code = MCHC) 28.5 gram/dL 33.0-36. 0 L RED CELL DISTRIBUTION WIDTH (test code = RDW) 22.5 % 11.6-16. 2 H RED CELL DISTRIBUTION WIDTH SD (test code = RDW-SD) 72.6 fL 37 .0-51.0 H PLATELET COUNT (test code = PLT) 90 K/mm3 150-450 L MEAN PLATELET VOLUME (test code = MPV) 12.7 fL 6.7-11.0 H NEUTROPHIL % (test code = NT%) 75.0 % 39.0-69.0 H IMMATURE GRANULOCYTE % (test code = IG%) 0.3 % 0.0-5.0 N LYMPHOCYTE % (test code = LY%) 13.9 % 25.0-55.0 L MONOCYTE % (test code = MO%) 8.3 % 0.0-10.0 N EOSINOPHIL % (test code = EO%) 2.4 % 0.0-5.0 N BASOPHIL % (test code = BA%) 0.1 % 0.0-1.0 N NUCLEATED RBC % (test code = NRBC%) 0.0 % 0-0 N NEUTROPHIL # (test code = NT#) 5.36 K/mm3 1.8-7.7 N IMMATURE GRANULOCYTE # (test code = IG#) 0.02 x10 3/uL 0-0.03 N LYMPHOCYTE # (test code = LY#) 0.99 K/mm3 1.0-5.0 L MONOCYTE # (test code = MO#) 0.59 K/mm3 0-0.8 N EOSINOPHIL # (test code = EO#) 0.17 K/mm3 0.0-0.5 N BASOPHIL # (test code = BA#) 0.01 K/mm3 0.0-0.2 N NUCLEATED RBC # (test code = NRBC#) 0.00 K/mm3 0.0-0.1 N MANUAL DIFF REQUIRED (test code = MDIFF) NO, ONLY SCAN NEEDED DIFFERENTIAL [id number] 05:10:00* Test Item Value Reference Range Interpretation Comments STAIN ACCEPTABILITY (test code = STN ACCEPTABLE) CABOT RINGS (test code = CAB) MORPHOLOGY COMMENT (test code = MOC) PLATELET ESTIMATE (test code = PLTEST) PLATELET MORPHOLOGY (test code = PLTMORPH) - XR ABSCESS/FIST/[id number] 13:41:00 FAX: Charito Lowe MD [phone] [place]: St: ADM Name: SIOBHAN ROBERTS [facility] : [birth year] 63 Age/S: 53/F [address] Unit #: [id number] Loc: [id number] [place] [address] Phys: Charito Leroy MD Acct: [id number] Dis Date: Status: ADM IN PHONE #: [phone] Exam Date: 10/05/2018 1145 FAX #: [phone] Reason: NEPH TUBE REMOVAL EXAMS: CPT CODE: [id number] XR ABSCESS/FIST/SIN [id number] REASON FOR EXAM: NEPH TUBE REMOVAL Exam order date: 10/05/2018 11:30 AM CPT cod es: [id number], [id number] FINDINGS: The patient was taken to radiology [...] percutaneous dr perrin. Recommend surgical intervention at 9672 Reported and signed by: Jewel Reyez M.D. CC: Charito Leroy MD Technologist: MAYA BURRIS RT(R) Trnscrd Date/Time/By: 10/05/2018 (7885) : By: [email or web address] Orig Print D/T: S: 10/05/2018 (3521) PAGE 1 Signed Report CBC W/AUTO [id number] 11:05:00 * Test Item Value Reference Range Interpretation Comments WHITE BLOOD CELL (test code = WBC) 6.4 K/mm3 4.5-12.5 N RED BLOOD CELL (test code = RBC) 3.05 mill/mm3 3.7-5.2 L HEMOGLOBIN (test code = HGB) 8.0 gram/dL 11.5-15.5 L HEMATOCRIT (test code = HCT) 26.9 % 36.0-46.0 L MEAN CELL VOLUME (test code = MCV) 88.2 fL 80-98 N MEAN CELL HGB (test code = MCH) 26.2 picogram 27.0-33.0 L MEAN CELL HGB CONCETRATION (test code = MCHC) 29.7 gram/dL 33.0-36. 0 L RED CELL DISTRIBUTION WIDTH (test code = RDW) 22.2 % 11.6-16. 2 H RED CELL DISTRIBUTION WIDTH SD (test code = RDW-SD) 71.2 fL 37 .0-51.0 H PLATELET COUNT (test code = PLT) 82 K/mm3 150-450 L MEAN PLATELET VOLUME (test code = MPV) 13.0 fL 6.7-11.0 H NEUTROPHIL % (test code = NT%) 77.3 % 39.0-69.0 H IMMATURE GRANULOCYTE % (test code = IG%) 0.6 % 0.0-5.0 N LYMPHOCYTE % (test code = LY%) 12.6 % 25.0-55.0 L MONOCYTE % (test code = MO%) 8.5 % 0.0-10.0 N EOSINOPHIL % (test code = EO%) 0.8 % 0.0-5.0 N BASOPHIL % (test code = BA%) 0.2 % 0.0-1.0 N NUCLEATED RBC % (test code = NRBC%) 0.0 % 0-0 N NEUTROPHIL # (test code = NT#) 4.91 K/mm3 1.8-7.7 N IMMATURE GRANULOCYTE # (test code = IG#) 0.04 x10 3/uL 0-0.03 H LYMPHOCYTE # (test code = LY#) 0.80 K/mm3 1.0-5.0 L MONOCYTE # (test code = MO#) 0.54 K/mm3 0-0.8 N EOSINOPHIL # (test code = EO#) 0.05 K/mm3 0.0-0.5 N BASOPHIL # (test code = BA#) 0.01 K/mm3 0.0-0.2 N NUCLEATED RBC # (test code = NRBC#) 0.00 K/mm3 0.0-0.1 N MANUAL DIFF REQUIRED (test code = MDIFF) NO, ONLY SCAN NEEDED DIFFERENTIAL [id number] 11:05:00* Test Item Value Reference Range Interpretation Comments STAIN ACCEPTABILITY (test code = STN ACCEPTABLE) STAIN ACCEPTABLE POLYCHROMASIA (test code = POLC) 1+ HYPOCHROMIA (test code = HYPO) 2+ POIKILOCYTOSIS (test code = POIK) 1+ ANISOCYTOSIS (test code = ANISO) 2+ PLATELET ESTIMATE (test code = PLTEST) DECREASED PLATELET MORPHOLOGY (test code = PLTMORPH) NORMAL CBC W/AUTO [id number] 07:02:00* Test Item Value Reference Range Interpretation Comments WHITE BLOOD CELL (test code = WBC) 6.4 K/mm3 4.5-12.5 N RED BLOOD CELL (test code = RBC) 3.05 mill/mm3 3.7-5.2 L HEMOGLOBIN (test code = HGB) 8.0 gram/dL 11.5-15.5 L HEMATOCRIT (test code = HCT) 26.9 % 36.0-46.0 L MEAN CELL VOLUME (test code = MCV) 88.2 fL 80-98 N MEAN CELL HGB (test code = MCH) 26.2 picogram 27.0-33.0 L MEAN CELL HGB CONCETRATION (test code = MCHC) 29.7 gram/dL 33.0-36. 0 L RED CELL DISTRIBUTION WIDTH (test code = RDW) 22.2 % 11.6-16. 2 H RED CELL DISTRIBUTION WIDTH SD (test code = RDW-SD) 71.2 fL 37 .0-51.0 H PLATELET COUNT (test code = PLT) 82 K/mm3 150-450 L MEAN PLATELET VOLUME (test code = MPV) 13.0 fL 6.7-11.0 H NEUTROPHIL % (test code = NT%) 77.3 % 39.0-69.0 H IMMATURE GRANULOCYTE % (test code = IG%) 0.6 % 0.0-5.0 N LYMPHOCYTE % (test code = LY%) 12.6 % 25.0-55.0 L MONOCYTE % (test code = MO%) 8.5 % 0.0-10.0 N EOSINOPHIL % (test code = EO%) 0.8 % 0.0-5.0 N BASOPHIL % (test code = BA%) 0.2 % 0.0-1.0 N NUCLEATED RBC % (test code = NRBC%) 0.0 % 0-0 N NEUTROPHIL # (test code = NT#) 4.91 K/mm3 1.8-7.7 N IMMATURE GRANULOCYTE # (test code = IG#) 0.04 x10 3/uL 0-0.03 H LYMPHOCYTE # (test code = LY#) 0.80 K/mm3 1.0-5.0 L MONOCYTE # (test code = MO#) 0.54 K/mm3 0-0.8 N EOSINOPHIL # (test code = EO#) 0.05 K/mm3 0.0-0.5 N BASOPHIL # (test code = BA#) 0.01 K/mm3 0.0-0.2 N NUCLEATED RBC # (test code = NRBC#) 0.00 K/mm3 0.0-0.1 N MANUAL DIFF REQUIRED (test code = MDIFF) NO, ONLY SCAN NEEDED DIFFERENTIAL [id number] 07:02:00* Test Item Value Reference Range Interpretation Comments STAIN ACCEPTABILITY (test code = STN ACCEPTABLE) CABOT RINGS (test code = CAB) MORPHOLOGY COMMENT (test code = MOC) PLATELET ESTIMATE (test code = PLTEST) PLATELET MORPHOLOGY (test code = PLTMORPH) CBC W/AUTO [id number] 07:02:00* Test Item Value Reference Range Interpretation Comments WHITE BLOOD CELL (test code = WBC) 6.4 K/mm3 4.5-12.5 N RED BLOOD CELL (test code = RBC) 3.05 mill/mm3 3.7-5.2 L HEMOGLOBIN (test code = HGB) 8.0 gram/dL 11.5-15.5 L HEMATOCRIT (test code = HCT) 26.9 % 36.0-46.0 L MEAN CELL VOLUME (test code = MCV) 88.2 fL 80-98 N MEAN CELL HGB (test code = MCH) 26.2 picogram 27.0-33.0 L MEAN CELL HGB CONCETRATION (test code = MCHC) 29.7 gram/dL 33.0-36. 0 L RED CELL DISTRIBUTION WIDTH (test code = RDW) 22.2 % 11.6-16. 2 H RED CELL DISTRIBUTION WIDTH SD (test code = RDW-SD) 71.2 fL 37 .0-51.0 H PLATELET COUNT (test code = PLT) 82 K/mm3 150-450 L MEAN PLATELET VOLUME (test code = MPV) 13.0 fL 6.7-11.0 H NEUTROPHIL % (test code = NT%) 77.3 % 39.0-69.0 H IMMATURE GRANULOCYTE % (test code = IG%) 0.6 % 0.0-5.0 N LYMPHOCYTE % (test code = LY%) 12.6 % 25.0-55.0 L MONOCYTE % (test code = MO%) 8.5 % 0.0-10.0 N EOSINOPHIL % (test code = EO%) 0.8 % 0.0-5.0 N BASOPHIL % (test code = BA%) 0.2 % 0.0-1.0 N NUCLEATED RBC % (test code = NRBC%) 0.0 % 0-0 N NEUTROPHIL # (test code = NT#) 4.91 K/mm3 1.8-7.7 N IMMATURE GRANULOCYTE # (test code = IG#) 0.04 x10 3/uL 0-0.03 H LYMPHOCYTE # (test code = LY#) 0.80 K/mm3 1.0-5.0 L MONOCYTE # (test code = MO#) 0.54 K/mm3 0-0.8 N EOSINOPHIL # (test code = EO#) 0.05 K/mm3 0.0-0.5 N BASOPHIL # (test code = BA#) 0.01 K/mm3 0.0-0.2 N NUCLEATED RBC # (test code = NRBC#) 0.00 K/mm3 0.0-0.1 N MANUAL DIFF REQUIRED (test code = MDIFF) NO, ONLY SCAN NEEDED DIFFERENTIAL [id number] 07:02:00* Test Item Value Reference Range Interpretation Comments STAIN ACCEPTABILITY (test code = STN ACCEPTABLE) CABOT RINGS (test code = CAB) MORPHOLOGY COMMENT (test code = MOC) PLATELET ESTIMATE (test code = PLTEST) PLATELET MORPHOLOGY (test code = PLTMORPH) CBC W/AUTO [id number] 07:02:00* Test Item Value Reference Range Interpretation Comments WHITE BLOOD CELL (test code = WBC) 6.4 K/mm3 4.5-12.5 N RED BLOOD CELL (test code = RBC) 3.05 mill/mm3 3.7-5.2 L HEMOGLOBIN (test code = HGB) 8.0 gram/dL 11.5-15.5 L HEMATOCRIT (test code = HCT) 26.9 % 36.0-46.0 L MEAN CELL VOLUME (test code = MCV) 88.2 fL 80-98 N MEAN CELL HGB (test code = MCH) 26.2 picogram 27.0-33.0 L MEAN CELL HGB CONCETRATION (test code = MCHC) 29.7 gram/dL 33.0-36. 0 L RED CELL DISTRIBUTION WIDTH (test code = RDW) 22.2 % 11.6-16. 2 H RED CELL DISTRIBUTION WIDTH SD (test code = RDW-SD) 71.2 fL 37 .0-51.0 H PLATELET COUNT (test code = PLT) 82 K/mm3 150-450 L MEAN PLATELET VOLUME (test code = MPV) 13.0 fL 6.7-11.0 H NEUTROPHIL % (test code = NT%) 77.3 % 39.0-69.0 H IMMATURE GRANULOCYTE % (test code = IG%) 0.6 % 0.0-5.0 N LYMPHOCYTE % (test code = LY%) 12.6 % 25.0-55.0 L MONOCYTE % (test code = MO%) 8.5 % 0.0-10.0 N EOSINOPHIL % (test code = EO%) 0.8 % 0.0-5.0 N BASOPHIL % (test code = BA%) 0.2 % 0.0-1.0 N NUCLEATED RBC % (test code = NRBC%) 0.0 % 0-0 N NEUTROPHIL # (test code = NT#) 4.91 K/mm3 1.8-7.7 N IMMATURE GRANULOCYTE # (test code = IG#) 0.04 x10 3/uL 0-0.03 H LYMPHOCYTE # (test code = LY#) 0.80 K/mm3 1.0-5.0 L MONOCYTE # (test code = MO#) 0.54 K/mm3 0-0.8 N EOSINOPHIL # (test code = EO#) 0.05 K/mm3 0.0-0.5 N BASOPHIL # (test code = BA#) 0.01 K/mm3 0.0-0.2 N NUCLEATED RBC # (test code = NRBC#) 0.00 K/mm3 0.0-0.1 N MANUAL DIFF REQUIRED (test code = MDIFF) NO, ONLY SCAN NEEDED DIFFERENTIAL [id number] 07:02:00* Test Item Value Reference Range Interpretation Comments STAIN ACCEPTABILITY (test code = STN ACCEPTABLE) MORPHOLOGY COMMENT (test code = MOC) PLATELET ESTIMATE (test code = PLTEST) PLATELET MORPHOLOGY (test code = PLTMORPH) CBC W/AUTO [id number] 07:02:00* Test Item Value Reference Range Interpretation Comments WHITE BLOOD CELL (test code = WBC) 6.4 K/mm3 4.5-12.5 N RED BLOOD CELL (test code = RBC) 3.05 mill/mm3 3.7-5.2 L HEMOGLOBIN (test code = HGB) 8.0 gram/dL 11.5-15.5 L HEMATOCRIT (test code = HCT) 26.9 % 36.0-46.0 L MEAN CELL VOLUME (test code = MCV) 88.2 fL 80-98 N MEAN CELL HGB (test code = MCH) 26.2 picogram 27.0-33.0 L MEAN CELL HGB CONCETRATION (test code = MCHC) 29.7 gram/dL 33.0-36. 0 L RED CELL DISTRIBUTION WIDTH (test code = RDW) 22.2 % 11.6-16. 2 H RED CELL DISTRIBUTION WIDTH SD (test code = RDW-SD) 71.2 fL 37 .0-51.0 H PLATELET COUNT (test code = PLT) 82 K/mm3 150-450 L MEAN PLATELET VOLUME (test code = MPV) 13.0 fL 6.7-11.0 H NEUTROPHIL % (test code = NT%) 77.3 % 39.0-69.0 H IMMATURE GRANULOCYTE % (test code = IG%) 0.6 % 0.0-5.0 N LYMPHOCYTE % (test code = LY%) 12.6 % 25.0-55.0 L MONOCYTE % (test code = MO%) 8.5 % 0.0-10.0 N EOSINOPHIL % (test code = EO%) 0.8 % 0.0-5.0 N BASOPHIL % (test code = BA%) 0.2 % 0.0-1.0 N NUCLEATED RBC % (test code = NRBC%) 0.0 % 0-0 N NEUTROPHIL # (test code = NT#) 4.91 K/mm3 1.8-7.7 N IMMATURE GRANULOCYTE # (test code = IG#) 0.04 x10 3/uL 0-0.03 H LYMPHOCYTE # (test code = LY#) 0.80 K/mm3 1.0-5.0 L MONOCYTE # (test code = MO#) 0.54 K/mm3 0-0.8 N EOSINOPHIL # (test code = EO#) 0.05 K/mm3 0.0-0.5 N BASOPHIL # (test code = BA#) 0.01 K/mm3 0.0-0.2 N NUCLEATED RBC # (test code = NRBC#) 0.00 K/mm3 0.0-0.1 N MANUAL DIFF REQUIRED (test code = MDIFF) NO, ONLY SCAN NEEDED DIFFERENTIAL [id number] 07:02:00* Test Item Value Reference Range Interpretation Comments STAIN ACCEPTABILITY (test code = STN ACCEPTABLE) CABOT RINGS (test code = CAB) MORPHOLOGY COMMENT (test code = MOC) PLATELET ESTIMATE (test code = PLTEST) PLATELET MORPHOLOGY (test code = PLTMORPH) BASIC METABOLIC [id number] 06:48:00* Test Item Value Reference Range Interpretation Comments SODIUM (test code = NA) 146 mmol/L 136-145 H POTASSIUM (test code = K) 4.2 mmol/L 3.5-5.1 N CHLORIDE (test code = CL) 117.0 mmol/L 98-107 H CARBON DIOXIDE (test code = CO2) 24.0 mmol/L 21-32 N ANION GAP (test code = GAP) 9.2 10-20 L GLUCOSE (test code = GLU) 114 mg/dL 74-106 H BLOOD UREA NITROGEN (test code = BUN) 33 mg/dL 7-18 H GLOMERULAR FILTRATION RATE (test code = GFR) 39 mL/min >=60 Estimated GFR by using Modified MDRD formula.Chronic kidney disease is defined as either kidney damageor GFR <60 mL/min/1.73 m2 for >3 months. CREATININE (test code = CREAT) 1.40 mg/dL 0.55-1.02 H Note change in reference range due to change in reagent. BUN/CREATININE RATIO (test code = BUN/CREA) 23.6 10-20 H CALCIUM (test code = CA) 8.8 mg/dL 8.5-10.1 N BASIC METABOLIC [id number] 06:40:00* Test Item Value Reference Range Interpretation Comments SODIUM (test code = NA) 146 mmol/L 136-145 H POTASSIUM (test code = K) 4.2 mmol/L 3.5-5.1 N CHLORIDE (test code = CL) 117.0 mmol/L 98-107 H CARBON DIOXIDE (test code = CO2) mmol/L 21-32 ANION GAP (test code = GAP) 10-20 GLUCOSE (test code = GLU) mg/dL 74-106 BLOOD UREA NITROGEN (test code = BUN) mg/dL 7-18 GLOMERULAR FILTRATION RATE (test code = GFR) mL/min >=60 CREATININE (test code = CREAT) mg/dL 0.55-1.02 BUN/CREATININE RATIO (test code = BUN/CREA) 10-20 CALCIUM (test code = CA) mg/dL 8.5-10.1 PROTHROMBIN [id number] 16:30:00* Test Item Value Reference Range Interpretation Comments PROTHROMBIN TIME PATIENT (test code = PTP) 13.9 seconds 9.0-14.0 N INTERNATIONAL NORMAL RATIO (test code = INR) 1.2 0.8-1.2 N The therapeutic range for oral anticoagulant therapy [...] (2.5-3.5) IS PATIENT ON ANTICOAGULANTS? NTHROMBOPLASTIN TIME [id number] 16:30:00* Test Item Value Reference Range Interpretation Comments THROMBOPLASTIN TIME PARTIAL (test code = PTT) 31.0 seconds 25.0-36. 5 N IS PATIENT ON ANTICOAGULANTS? NGASTRIC,[id number] 15:50:00 RUN DATE: 10/04/18 Florien [employer] [facility] PAGE 1 RUN TIME: 1550 Specimen Inqui ry RUN USER: INTERFACE PATIENT: SIOBHAN BARBOSA ACCT #: [id number] LOC: [facility] U #: [id number] AGE/SX: 53/F ROOM: 2068 RE09/21/18REG DR: Charito Leroy MD : 63 BED: B DIS: STATUS: ADM IN TLOC: SPEC #: [id number] RECD: 10/03/18 STATUS: JAC LAZARO #: [id number] RADHA: 09/30/18-[address] [facility] [address]: Jay Hughes MD ENTERED: 10/03/18 SP TYPE: GASTRIC BX OTHR DR: Jay Bae i, MD, Tsegaw MD Hampel, Nehemia MD S Vilma de luna MD,Armando HassanORDERED: GROSS COPIES TO: Jay Hughes MD [address] [place] [address] Luanne De La Torre MD [address] [place] [address] Leticia Luna MD [address] [place] [address] Vilma Black MD [address] [facility] [place] [address] Armando Stoner [address] [place], [place] [id number] PROCEDURES: MISA (10/04/18-1 317) TISSUES: 1. ANTRUM - OF STOMACH BX 2. ESOPHAGUS, NOS - BX CONTINUED ON NEXT PAGE SELWYN Brito DATE: 10/04/18 Florien - Lab PAGE 2 RUN TIME: 1550 Specimen Inquiry RUN USER: INTERFACE SPEC #: [id number] PATIENT: SIOBHAN BARBOSA #[id number] (Continued) CLINICAL HISTORY COLLECTI ON DATE: 09/30/18 [...] EPITHELIUM PRESENT NEGATIVE FOR MALIGNANCY RRB/raleigh [phone], [phone] MACROSCOPIC The first specimen is received in [...] submitted as (2). MISA PERFORME D AT [facility] [address] [place] [address] (P)[phone] CONTINUED ON NEXT PAGE RUN DATE: 10/04/18 Florien - [facility] PAGE 3 RUN TIME: 1550 Specimen Inquiry RUN USER: INTERFACE SPEC #: [id number] PATIENT: FAMILIASIOBHAN SOFIYA #[id number] (Continued)- MICROSCOPIC All of the stains, including any controls performed, stain appropriately. MICROSCOPIC PERFORMED AT [facility] [address] [place] [address] ([phone] PERFORMING SITE Diagnosis performed at: [facility], [place] [address] [facility], [place] [address] Signed SIGNATURE ON FILE Ernie Davenport MD 10/04/18 1550 END OF REPORT BASIC METABOLIC PANEL 2018-10-04 10:45:00* Test Item Value Reference Range Interpretation Comments SODIUM (test code = NA) 144 mmol/L 136-145 N POTASSIUM (test code = K) 4.9 mmol/L 3.5-5.1 N CHLORIDE (test code = CL) 116.0 mmol/L 98-107 H CARBON DIOXIDE (test code = CO2) 20.0 mmol/L 21-32 L ANION GAP (test code = GAP) 12.9 10-20 N GLUCOSE (test code = GLU) 144 mg/dL 74-106 H BLOOD UREA NITROGEN (test code = BUN) 36 mg/dL 7-18 H GLOMERULAR FILTRATION RATE (test code = GFR) 36 mL/min >=60 Estimated GFR by using Modified MDRD formula.Chronic kidney disease is defined as either kidney damageor GFR <60 mL/min/1.73 m2 for >3 months. CREATININE (test code = CREAT) 1.50 mg/dL 0.55-1.02 H Note change in reference range due to change in reagent. BUN/CREATININE RATIO (test code = BUN/CREA) 24.7 10-20 H CALCIUM (test code = CA) 8.7 mg/dL 8.5-10.1 N 0617- GUIDANCE [facility] [id number] 08:28:00 Name: SIOBHAN BARBOSA [facility] : 1965 Age/S: 53 / F [address] Unit #: [id number] Loc: [place] [address] Phys: Charito Leroy MD Acct: [id number] Dis Date: Status: ADM IN PHONE #: [phone] Exam Date: 09/27/2018 1158 FAX #: [phone] Reason: Report Has Been Amended EXAMS: CPT CODE: [id number] US GUIDANCE VASC ACCESS 09289 Fluoro Time: 6 DAP (Gy m2): 1181 Air Kerma (mGy): 2.35 Addendum - 10/04/2018 SIGNED 10/04/2018 ADDENDUM: [id number] SP/USGUIDVSAC ADDENDUM: [id number]-iv-[id number] approximate procedure time is 30 minutes at 0828 Reported and signed by: Jewel Reyez M.D. Transcribed: 10/04/2018 (0828) MengVTL Report REASON FOR EXAM: Acute renal failure Exam Order Date: 09/27/2018 11:45 AM Attending Michelet: Charito Leroy MD PROCEDURE: Fluoroscopic and ultrasound guided right IJ temporary dialysis catheter placement FINDINGS: Prior to the procedure, informed consent was obtained after risks and benefits of the procedure were explained to the patient. The patient agreed and w anted to proceed. The patient was brought to special procedures and placed supine on the table. The right neck and chest wall were prepped and drap ed in the usual fashion. All elements of [...] 1 Signed Report (CONTINUED) Name: KRISTEN BARBOSA [facility] : 1965 Age/S: 53 / F [address] Unit #: [id number] Loc: [place] [address] Phys: Charito Leroy MD Acct: [id number] Dis Date: Status: ADM IN PHONE #: [phone] Exam Date: 09/27/2018 1157 FAX #: [phone] Reason: Report Has Been Amended EXAMS: CPT C ODE: [id number] US GUIDANCE VASC ACCESS 06931 Fluoro Time: 6 DAP (Gy m2): 1181 Air Kerma (mGy): 2.35 < Continued> Fluoroscopic time:6 sec Fluoroscopic dose:0.4 mGy Number of images obtained: 3 IMPRESSION: right IJ temporary dialysis catheter is ready for use. at 6752 Reported and signed by: Jewel Reyez M.D. CC: Charito Leroy MD Technologist: Todd Andrews Trnnhb Date/Time: 09/27/2018 (9037) Mark Orig Print D/T: S: 09/27/2018 (9924) PAGE 2 Signed Report - SP FLUORO GUID CTRL ACC [id number] 08:28:00 Name: SIOBHAN BARBOSA [facility] : 1965 Age/S: 53 / F [address] [facility] Unit #: [id number] Loc: [place] [address] Phys: Charito Leroy MD Acct: [id number] Dis Date: Status: ADM IN PHONE #: [phone] Exam Date: 09/27/2018 1157 FAX #: [phone] Reason: Report Has Been Amended EXAMS: CPT CODE: [id number] SP FLUORO GUID CTRL ACC DEV 34116 Fluoro Time: 6 DAP (Gy m2): 1181 Air Kerma (mGy): 2.35 Addendum - 10/04/2018 SIGNED 10/04/2018 ADDENDUM: [id number] SP/FLUOROCVAD ADDENDUM: [id number]-qa-zsli approximate procedure time is 30 minutes at 1946 Reported and signed by: Jewel Reyez M.D. Transcribed: 10/04/2018 (13) Mark Report REASON FOR EXAM: Acute renal [...] 1 Signed Report (CONTINUED) Name: KRISTEN BARBOSA [facility] : 1965 Age/S: 53 / F [address] [facility] Unit #: [id number] Loc: [place] [address] Phys: Charito Leroy MD Acct: [id number] Dis Date: Status: ADM IN PHONE #: [phone] Exam Date: 09/27/2018 1157 FAX #: [phone] Reason: Report Has Been Amended EXAMS: CPT C ODE: [id number] SP FLUORO GUID CTRL ACC DEV 02171 Fluoro Time: 6 DAP (Gy m2): 1181 Air Kerma (mGy): 2.35 < Continued> Fluoroscopic time:6 sec Fluoroscopic dose:0.4 mGy Number of images obtained: 3 IMPRESSION: right IJ temporary dialysis catheter is ready for use. at 2581 Reported and signed by: Jewel Reyez M.D. CC: Charito Leroy MD Technologist: Todd Andrews Trnnhb Date/Time: 09/27/2018 (2365) tVEDA Orig Print D/T: S: 09/27/2018 (5840) PAGE 2 Signed Report PROCALCITONIN (PCT) 2018-10-02 14:55:00* Test Item Value Reference Range Interpretation Comments PROCALCITONIN (PCT) (test code = PROCAL) 1.57 ng/ml Concentration Interpretation (ng/mL) <0.51 Sepsis [...] patients history. - XR ABDOMEN AP 1 [id number] 14:30:00 FAX: Charito Lowe MD [phone] [place]: B St: ADM FAX: Shirin Santiago [phone] Name: SIOBHAN BARBOSA [facility] : 1965 Age/S: 53/F [address] Unit #: [id number] Loc: [address] [place] [address] Phys: Shirin Santiago MD Acct: [id number] Dis Date: Status: ADM IN PHONE #: [phone] Exam Date: 10/02/2018 1418 FAX #: [phone] Reason: POSSIBLE CONSTIPATION EXAMS: CPT CODE: [id number] XR ABDOMEN AP 1 V 24069 HISTORY: Constipation TECHNIQUE: AP abdomen x-ra y COMPARISON: CT 09/30/18 FINDINGS: Mild colonic fe terell retention. Nonobstructive bowel gas pattern. Left upper abdominal stag horn calculus and left ureteral stent. Left abdominal pigtail drainage cat heter. No intra-abdominal mass effect. Degenerative changes of the spine a nd hips. IMPRESSION: Mild colonic fecal re tention. Left upper abdominal staghorn calculus and left urete ral stent. Left abdominal pigtail drainage catheter. at 1430 Reported and signed by: Nguyen Krishna D.O. CC: Charito Leroy MD; Shirin Santiago MD Technologist: Belen Delarosa RT( R) Trnscrd Date/Time/By: 10/02/2018 (4692) : By: [email or web address] Orig Print D/T: S: 10/02/2018 (9976) PAGE 1 Signed Report - XR CHEST 2 [id number] 14:28:00 FAX: Charito Lowe MD [phone] [place]: St: ADM FAX: Shirin Santiago [phone] Name: SIOBHAN BARBOSA [facility] : 1965 Age/S: 53/F [address] [facility] [address] #: [id number] Loc: [facility] [place] [address] Phys: Shirin Santiago MD Acct: [id number] Dis Date: Status: ADM IN PHONE #: [phone] Exam Date: 10/02/2018 1418 FAX #: [phone] Reason: COUGHING EXAMS: CPT CODE: [id number] XR CHEST 2 V 96836 HISTORY: COUGHING TECHNIQUE: AP and lateral chest x-ray COMPARISON: 09/27/18 IMPRESSION: No significant interval change. Small bilateral pleural effusion and basilar atelectasis. Mild cardiomegaly. Mediastinal silhouette is unr emarkable. Right IJ permacath. at 1428 Reported and signed b y: Nguyen Krishna D.O. CC: Charito Leroy MD; Shirin Santiago MD Technologist: Belen Delarosa RT(R) Trnscrd Date/Time/By: 10/02/2018 (9089) : By: [email or web address] O rig Print D/T: S: 10/02/2018 (2393) PAGE 1 Signed Report CBC W/MANUAL DIFF 2018-10-02 14:13:00* Test Item Value Reference Range Interpretation Comments WHITE BLOOD CELL (test code = WBC) 9.2 K/mm3 4.5-12.5 N RED BLOOD CELL (test code = RBC) 3.25 mill/mm3 3.7-5.2 L HEMOGLOBIN (test code = HGB) 8.4 gram/dL 11.5-15.5 L HEMATOCRIT (test code = HCT) 28.7 % 36.0-46.0 L MEAN CELL VOLUME (test code = MCV) 88.3 fL 80-98 N MEAN CELL HGB (test code = MCH) 25.8 picogram 27.0-33.0 L MEAN CELL HGB CONCETRATION (test code = MCHC) 29.3 gram/dL 33.0-36. 0 L RED CELL DISTRIBUTION WIDTH (test code = RDW) 21.3 % 11.6-16. 2 H RED CELL DISTRIBUTION WIDTH SD (test code = RDW-SD) 68.2 fL 37 .0-51.0 H PLATELET COUNT (test code = PLT) 72 K/mm3 150-450 L MEAN PLATELET VOLUME (test code = MPV) TEST NOT PERFORMED fL 6.7-11 .0 IMMATURE GRANULOCYTE % (test code = IG%) 1.1 % 0.0-5.0 N NUCLEATED RBC % (test code = NRBC%) 0.0 % 0-0 N NEUTROPHIL # (test code = NT#) 7.72 K/mm3 1.8-7.7 H IMMATURE GRANULOCYTE # (test code = IG#) 0.10 x10 3/uL 0-0.03 H LYMPHOCYTE # (test code = LY#) 0.83 K/mm3 1.0-5.0 L MONOCYTE # (test code = MO#) 0.54 K/mm3 0-0.8 N EOSINOPHIL # (test code = EO#) 0.02 K/mm3 0.0-0.5 N BASOPHIL # (test code = BA#) 0.00 K/mm3 0.0-0.2 N NUCLEATED RBC # (test code = NRBC#) 0.00 K/mm3 0.0-0.1 N MANUAL DIFF REQUIRED (test code = MDIFF) YES STAIN ACCEPTABILITY (test code = STN ACCEPTABLE) STAIN ACCEPTABLE TOTAL CELLS COUNTED (test code = TCC) 113 #CELLS SEGMENTED NEUTROPHILS (test code = SEG) 91.1 % 39-69 H BAND NEUTROPHIL (test code = BAND) 0 % 0-10 N LYMPHOCYTE (test code = LYMPH) 5.3 % 25-55 L REACTIVE LYMPH (test code = RELYMPH) 0 % MONOCYTE (test code = MON) 2.7 % 0-10 N EOSINOPHIL (test code = EOS) 0 % 0.0-5.0 N BASOPHIL (test code = BASO) 0 % 0-1.0 N METAMYELOCYTE (test code = META) 0 % 0-0 N MYELOCYTE (test code = MYELO) 0 % 0.0-0.0 N PROMYELOCYTE (test code = PROM) 0 % 0-0 N POLYCHROMASIA (test code = POLC) 1+ POIKILOCYTOSIS (test code = POIK) 1+ ANISOCYTOSIS (test code = ANISO) 1+ MACROCYTOSIS (test code = MACR) 1+ JAYLA CELLS (test code = JAYLA) 1+ NONE PLATELET ESTIMATE (test code = PLTEST) DECREASED PLATELET MORPHOLOGY (test code = PLTMORPH) NORMAL IMMATURE FORMS (test code = IMMAT) 0.9 % CBC W/MANUAL [id number] 13:55:00* Test Item Value Reference Range Interpretation Comments WHITE BLOOD CELL (test code = WBC) 9.2 K/mm3 4.5-12.5 N RED BLOOD CELL (test code = RBC) 3.25 mill/mm3 3.7-5.2 L HEMOGLOBIN (test code = HGB) 8.4 gram/dL 11.5-15.5 L HEMATOCRIT (test code = HCT) 28.7 % 36.0-46.0 L MEAN CELL VOLUME (test code = MCV) 88.3 fL 80-98 N MEAN CELL HGB (test code = MCH) 25.8 picogram 27.0-33.0 L MEAN CELL HGB CONCETRATION (test code = MCHC) 29.3 gram/dL 33.0-36. 0 L RED CELL DISTRIBUTION WIDTH (test code = RDW) 21.3 % 11.6-16. 2 H RED CELL DISTRIBUTION WIDTH SD (test code = RDW-SD) 68.2 fL 37 .0-51.0 H PLATELET COUNT (test code = PLT) 72 K/mm3 150-450 L MEAN PLATELET VOLUME (test code = MPV) TEST NOT PERFORMED fL 6.7-11 .0 IMMATURE GRANULOCYTE % (test code = IG%) 1.1 % 0.0-5.0 N NUCLEATED RBC % (test code = NRBC%) 0.0 % 0-0 N NEUTROPHIL # (test code = NT#) 7.72 K/mm3 1.8-7.7 H IMMATURE GRANULOCYTE # (test code = IG#) 0.10 x10 3/uL 0-0.03 H LYMPHOCYTE # (test code = LY#) 0.83 K/mm3 1.0-5.0 L MONOCYTE # (test code = MO#) 0.54 K/mm3 0-0.8 N EOSINOPHIL # (test code = EO#) 0.02 K/mm3 0.0-0.5 N BASOPHIL # (test code = BA#) 0.00 K/mm3 0.0-0.2 N NUCLEATED RBC # (test code = NRBC#) 0.00 K/mm3 0.0-0.1 N MANUAL DIFF REQUIRED (test code = MDIFF) YES STAIN ACCEPTABILITY (test code = STN ACCEPTABLE) TOTAL CELLS COUNTED (test code = TCC) #CELLS SEGMENTED NEUTROPHILS (test code = SEG) % 39-69 LYMPHOCYTE (test code = LYMPH) % 25-55 MONOCYTE (test code = MON) % 0-10 MORPHOLOGY COMMENT (test code = MOC) PLATELET ESTIMATE (test code = PLTEST) PLATELET MORPHOLOGY (test code = PLTMORPH) BASIC METABOLIC [id number] 06:41:00* Test Item Value Reference Range Interpretation Comments SODIUM (test code = NA) 144 mmol/L 136-145 N POTASSIUM (test code = K) 3.2 mmol/L 3.5-5.1 L CHLORIDE (test code = CL) 114.0 mmol/L 98-107 H CARBON DIOXIDE (test code = CO2) 21.0 mmol/L 21-32 N ANION GAP (test code = GAP) 12.2 10-20 N GLUCOSE (test code = GLU) 164 mg/dL 74-106 H BLOOD UREA NITROGEN (test code = BUN) 38 mg/dL 7-18 H GLOMERULAR FILTRATION RATE (test code = GFR) 29 mL/min >=60 Estimated GFR by using Modified MDRD formula.Chronic kidney disease is defined as either kidney damageor GFR <60 mL/min/1.73 m2 for >3 months. CREATININE (test code = CREAT) 1.80 mg/dL 0.55-1.02 H Note change in reference range due to change in reagent. BUN/CREATININE RATIO (test code = BUN/CREA) 21.0 10-20 H CALCIUM (test code = CA) 8.1 mg/dL 8.5-10.1 L BASIC METABOLIC [id number] 06:37:00* Test Item Value Reference Range Interpretation Comments SODIUM (test code = NA) 144 mmol/L 136-145 N POTASSIUM (test code = K) 3.2 mmol/L 3.5-5.1 L CHLORIDE (test code = CL) 114.0 mmol/L 98-107 H CARBON DIOXIDE (test code = CO2) mmol/L 21-32 ANION GAP (test code = GAP) 10-20 GLUCOSE (test code = GLU) mg/dL 74-106 BLOOD UREA NITROGEN (test code = BUN) mg/dL 7-18 GLOMERULAR FILTRATION RATE (test code = GFR) mL/min >=60 CREATININE (test code = CREAT) mg/dL 0.55-1.02 BUN/CREATININE RATIO (test code = BUN/CREA) 10-20 CALCIUM (test code = CA) mg/dL 8.5-10.1 BASIC METABOLIC [id number] 11:28:00* Test Item Value Reference Range Interpretation Comments SODIUM (test code = NA) 145 mmol/L 136-145 N POTASSIUM (test code = K) 3.3 mmol/L 3.5-5.1 L CHLORIDE (test code = CL) 113.0 mmol/L 98-107 H CARBON DIOXIDE (test code = CO2) 23.0 mmol/L 21-32 N ANION GAP (test code = GAP) 12.3 10-20 N GLUCOSE (test code = GLU) 131 mg/dL 74-106 H BLOOD UREA NITROGEN (test code = BUN) 38 mg/dL 7-18 H GLOMERULAR FILTRATION RATE (test code = GFR) 29 mL/min >=60 Estimated GFR by using Modified MDRD formula.Chronic kidney disease is defined as either kidney damageor GFR <60 mL/min/1.73 m2 for >3 months. CREATININE (test code = CREAT) 1.80 mg/dL 0.55-1.02 H Note change in reference range due to change in reagent. BUN/CREATININE RATIO (test code = BUN/CREA) 20.7 10-20 H CALCIUM (test code = CA) 8.3 mg/dL 8.5-10.1 L - CT ABD PELVIS W/O [id number] 20:44:00 Name: SIOBHAN BARBOSA [facility] : 1965 Age/S: 53 / F [address] Unit #: [id number] Loc: [place] [address] Phys: Jewel Reyez MD Acct: [id number] Dis Date: Status: ADM IN PHONE #: [phone] Exam Date: 09/30/2018 1835 FAX #: [phone] Reason: EVAL FOR FLUID COLLECTION EXAMS: CPT CODE: [id number] CT ABD PELVIS W/O CONT [id number] EXAM: CT of the abdomen and pelvis [...] Small right pleural effusion basilar atelectatic changes. PAG E 1 Signed Report (CONTINUED) Name: SIOBHAN BARBOSA [facility] : 1964 Age/S: 53 / F [address] [facility] Unit #: [id number] Loc: [place] [address] Phys: Jewel Reyez MD Acct: [id number] Dis Date: Status: ADM IN PHONE #: Exam Date: 09/30/2018 1835 FAX #: [phone] Reason: EVAL FOR FLUID COLLECTION EXAMS: CPT CODE: [id number] CT ABD PELVIS W/[place] T [id number] <Continued> at 2044 Reported and signed by: Jameel Alvarez M.D. CC: Charito Leroy MD Technologist:ELIDA FREGOSO RT(R) CTDI: DLP: Trnscb Date/Time: 09/30/2018 (2043) [email or web address] Orig Print D/T: S: 09/30/2018 (2046) CTDI: DLP: PAGE 2 Signed Report BASIC METABOLIC [id number] 06:51:00* Test Item Value Reference Range Interpretation Comments SODIUM (test code = NA) 144 mmol/L 136-145 N POTASSIUM (test code = K) 3.2 mmol/L 3.5-5.1 L CHLORIDE (test code = CL) 111.0 mmol/L 98-107 H CARBON DIOXIDE (test code = CO2) 23.0 mmol/L 21-32 N Previously reported result: 23.0 mmol/LEdited by: [email or web address] on 09/30/18:0650 09/30/18 0650: CO2 previously reported as: 23.0 mmol/L ANION GAP (test code = GAP) 13.2 10-20 N GLUCOSE (test code = GLU) 128 mg/dL 74-106 H BLOOD UREA NITROGEN (test code = BUN) 37 mg/dL 7-18 H GLOMERULAR FILTRATION RATE (test code = GFR) 31 mL/min >=60 Estimated GFR by using Modified MDRD formula.Chronic kidney disease is defined as either kidney damageor GFR <60 mL/min/1.73 m2 for >3 months. CREATININE (test code = CREAT) 1.70 mg/dL 0.55-1.02 H Note change in reference range due to change in reagent. BUN/CREATININE RATIO (test code = BUN/CREA) 21.6 10-20 H CALCIUM (test code = CA) 8.4 mg/dL 8.5-10.1 L BASIC METABOLIC [id number] 04:58:00* Test Item Value Reference Range Interpretation Comments SODIUM (test code = NA) 144 mmol/L 136-145 N POTASSIUM (test code = K) 3.2 mmol/L 3.5-5.1 L CHLORIDE (test code = CL) 111.0 mmol/L 98-107 H CARBON DIOXIDE (test code = CO2) mmol/L 21-32 ANION GAP (test code = GAP) 10-20 GLUCOSE (test code = GLU) mg/dL 74-106 BLOOD UREA NITROGEN (test code = BUN) mg/dL 7-18 GLOMERULAR FILTRATION RATE (test code = GFR) mL/min >=60 CREATININE (test code = CREAT) mg/dL 0.55-1.02 BUN/CREATININE RATIO (test code = BUN/CREA) 10-20 CALCIUM (test code = CA) mg/dL 8.5-10.1 BASIC METABOLIC [id number] 04:58:00* Test Item Value Reference Range Interpretation Comments SODIUM (test code = NA) 144 mmol/L 136-145 N POTASSIUM (test code = K) 3.2 mmol/L 3.5-5.1 L CHLORIDE (test code = CL) 111.0 mmol/L 98-107 H CARBON DIOXIDE (test code = CO2) 23.0 mmol/L 21-32 N ANION GAP (test code = GAP) 10-20 GLUCOSE (test code = GLU) 128 mg/dL 74-106 H BLOOD UREA NITROGEN (test code = BUN) 37 mg/dL 7-18 H GLOMERULAR FILTRATION RATE (test code = GFR) 31 mL/min >=60 Estimated GFR by using Modified MDRD formula.Chronic kidney disease is defined as either kidney damageor GFR <60 mL/min/1.73 m2 for >3 months. CREATININE (test code = CREAT) 1.70 mg/dL 0.55-1.02 H Note change in reference range due to change in reagent. BUN/CREATININE RATIO (test code = BUN/CREA) 21.6 10-20 H CALCIUM (test code = CA) 8.4 mg/dL 8.5-10.1 L BASIC METABOLIC [id number] 12:13:00* Test Item Value Reference Range Interpretation Comments SODIUM (test code = NA) 144 mmol/L 136-145 N POTASSIUM (test code = K) 3.5 mmol/L 3.5-5.1 N CHLORIDE (test code = CL) 109.0 mmol/L 98-107 H CARBON DIOXIDE (test code = CO2) 23.0 mmol/L 21-32 N ANION GAP (test code = GAP) 15.5 10-20 N GLUCOSE (test code = GLU) 138 mg/dL 74-106 H BLOOD UREA NITROGEN (test code = BUN) 40 mg/dL 7-18 H GLOMERULAR FILTRATION RATE (test code = GFR) 31 mL/min >=60 Estimated GFR by using Modified MDRD formula.Chronic kidney disease is defined as either kidney damageor GFR <60 mL/min/1.73 m2 for >3 months. CREATININE (test code = CREAT) 1.70 mg/dL 0.55-1.02 H Note change in reference range due to change in reagent. BUN/CREATININE RATIO (test code = BUN/CREA) 23.4 10-20 H CALCIUM (test code = CA) 8.4 mg/dL 8.5-10.1 L BASIC METABOLIC [id number] 12:12:00* Test Item Value Reference Range Interpretation Comments SODIUM (test code = NA) 144 mmol/L 136-145 N POTASSIUM (test code = K) 3.5 mmol/L 3.5-5.1 N CHLORIDE (test code = CL) 109.0 mmol/L 98-107 H CARBON DIOXIDE (test code = CO2) mmol/L 21-32 ANION GAP (test code = GAP) 10-20 GLUCOSE (test code = GLU) mg/dL 74-106 BLOOD UREA NITROGEN (test code = BUN) mg/dL 7-18 GLOMERULAR FILTRATION RATE (test code = GFR) mL/min >=60 CREATININE (test code = CREAT) mg/dL 0.55-1.02 BUN/CREATININE RATIO (test code = BUN/CREA) 10-20 CALCIUM (test code = CA) mg/dL 8.5-10.1 CBC W/AUTO [id number] 06:18:00* Test Item Value Reference Range Interpretation Comments WHITE BLOOD CELL (test code = WBC) 11.2 K/mm3 4.5-12.5 N RED BLOOD CELL (test code = RBC) 3.72 mill/mm3 3.7-5.2 N HEMOGLOBIN (test code = HGB) 9.6 gram/dL 11.5-15.5 L HEMATOCRIT (test code = HCT) 31.1 % 36.0-46.0 L MEAN CELL VOLUME (test code = MCV) 83.6 fL 80-98 N MEAN CELL HGB (test code = MCH) 25.8 picogram 27.0-33.0 L MEAN CELL HGB CONCETRATION (test code = MCHC) 30.9 gram/dL 33.0-36. 0 L RED CELL DISTRIBUTION WIDTH (test code = RDW) 19.9 % 11.6-16. 2 H RED CELL DISTRIBUTION WIDTH SD (test code = RDW-SD) 55.5 fL 37 .0-51.0 H PLATELET COUNT (test code = PLT) 65 K/mm3 150-450 L MEAN PLATELET VOLUME (test code = MPV) TEST NOT PERFORMED fL 6.7-11 .0 NEUTROPHIL % (test code = NT%) 84.8 % 39.0-69.0 H IMMATURE GRANULOCYTE % (test code = IG%) 2.6 % 0.0-5.0 N LYMPHOCYTE % (test code = LY%) 8.0 % 25.0-55.0 L MONOCYTE % (test code = MO%) 4.1 % 0.0-10.0 N EOSINOPHIL % (test code = EO%) 0.3 % 0.0-5.0 N BASOPHIL % (test code = BA%) 0.2 % 0.0-1.0 N NUCLEATED RBC % (test code = NRBC%) 0.0 % 0-0 N NEUTROPHIL # (test code = NT#) 9.52 K/mm3 1.8-7.7 H IMMATURE GRANULOCYTE # (test code = IG#) 0.29 x10 3/uL 0-0.03 H LYMPHOCYTE # (test code = LY#) 0.90 K/mm3 1.0-5.0 L MONOCYTE # (test code = MO#) 0.46 K/mm3 0-0.8 N EOSINOPHIL # (test code = EO#) 0.03 K/mm3 0.0-0.5 N BASOPHIL # (test code = BA#) 0.02 K/mm3 0.0-0.2 N NUCLEATED RBC # (test code = NRBC#) 0.00 K/mm3 0.0-0.1 N MANUAL DIFF REQUIRED (test code = MDIFF) NO, ONLY SCAN NEEDED DIFFERENTIAL [id number] 06:18:00* Test Item Value Reference Range Interpretation Comments STAIN ACCEPTABILITY (test code = STN ACCEPTABLE) STAIN ACCEPTABLE POIKILOCYTOSIS (test code = POIK) 1+ ANISOCYTOSIS (test code = ANISO) 1+ MACROCYTOSIS (test code = MACR) 1+ PLATELET ESTIMATE (test code = PLTEST) DECREASED PLATELET MORPHOLOGY (test code = PLTMORPH) SIZE VARIABLE CBC W/AUTO [id number] 05:38:00* Test Item Value Reference Range Interpretation Comments WHITE BLOOD CELL (test code = WBC) 11.2 K/mm3 4.5-12.5 N RED BLOOD CELL (test code = RBC) 3.72 mill/mm3 3.7-5.2 N HEMOGLOBIN (test code = HGB) 9.6 gram/dL 11.5-15.5 L HEMATOCRIT (test code = HCT) 31.1 % 36.0-46.0 L MEAN CELL VOLUME (test code = MCV) 83.6 fL 80-98 N MEAN CELL HGB (test code = MCH) 25.8 picogram 27.0-33.0 L MEAN CELL HGB CONCETRATION (test code = MCHC) 30.9 gram/dL 33.0-36. 0 L RED CELL DISTRIBUTION WIDTH (test code = RDW) 19.9 % 11.6-16. 2 H RED CELL DISTRIBUTION WIDTH SD (test code = RDW-SD) 55.5 fL 37 .0-51.0 H PLATELET COUNT (test code = PLT) 65 K/mm3 150-450 L MEAN PLATELET VOLUME (test code = MPV) TEST NOT PERFORMED fL 6.7-11 .0 NEUTROPHIL % (test code = NT%) 84.8 % 39.0-69.0 H IMMATURE GRANULOCYTE % (test code = IG%) 2.6 % 0.0-5.0 N LYMPHOCYTE % (test code = LY%) 8.0 % 25.0-55.0 L MONOCYTE % (test code = MO%) 4.1 % 0.0-10.0 N EOSINOPHIL % (test code = EO%) 0.3 % 0.0-5.0 N BASOPHIL % (test code = BA%) 0.2 % 0.0-1.0 N NUCLEATED RBC % (test code = NRBC%) 0.0 % 0-0 N NEUTROPHIL # (test code = NT#) 9.52 K/mm3 1.8-7.7 H IMMATURE GRANULOCYTE # (test code = IG#) 0.29 x10 3/uL 0-0.03 H LYMPHOCYTE # (test code = LY#) 0.90 K/mm3 1.0-5.0 L MONOCYTE # (test code = MO#) 0.46 K/mm3 0-0.8 N EOSINOPHIL # (test code = EO#) 0.03 K/mm3 0.0-0.5 N BASOPHIL # (test code = BA#) 0.02 K/mm3 0.0-0.2 N NUCLEATED RBC # (test code = NRBC#) 0.00 K/mm3 0.0-0.1 N MANUAL DIFF REQUIRED (test code = MDIFF) NO, ONLY SCAN NEEDED DIFFERENTIAL [id number] 05:38:00* Test Item Value Reference Range Interpretation Comments STAIN ACCEPTABILITY (test code = STN ACCEPTABLE) CABOT RINGS (test code = CAB) MORPHOLOGY COMMENT (test code = MOC) PLATELET ESTIMATE (test code = PLTEST) PLATELET MORPHOLOGY (test code = PLTMORPH) CBC W/AUTO [id number] 05:38:00* Test Item Value Reference Range Interpretation Comments WHITE BLOOD CELL (test code = WBC) 11.2 K/mm3 4.5-12.5 N RED BLOOD CELL (test code = RBC) 3.72 mill/mm3 3.7-5.2 N HEMOGLOBIN (test code = HGB) 9.6 gram/dL 11.5-15.5 L HEMATOCRIT (test code = HCT) 31.1 % 36.0-46.0 L MEAN CELL VOLUME (test code = MCV) 83.6 fL 80-98 N MEAN CELL HGB (test code = MCH) 25.8 picogram 27.0-33.0 L MEAN CELL HGB CONCETRATION (test code = MCHC) 30.9 gram/dL 33.0-36. 0 L RED CELL DISTRIBUTION WIDTH (test code = RDW) 19.9 % 11.6-16. 2 H RED CELL DISTRIBUTION WIDTH SD (test code = RDW-SD) 55.5 fL 37 .0-51.0 H PLATELET COUNT (test code = PLT) 65 K/mm3 150-450 L MEAN PLATELET VOLUME (test code = MPV) TEST NOT PERFORMED fL 6.7-11 .0 NEUTROPHIL % (test code = NT%) 84.8 % 39.0-69.0 H IMMATURE GRANULOCYTE % (test code = IG%) 2.6 % 0.0-5.0 N LYMPHOCYTE % (test code = LY%) 8.0 % 25.0-55.0 L MONOCYTE % (test code = MO%) 4.1 % 0.0-10.0 N EOSINOPHIL % (test code = EO%) 0.3 % 0.0-5.0 N BASOPHIL % (test code = BA%) 0.2 % 0.0-1.0 N NUCLEATED RBC % (test code = NRBC%) 0.0 % 0-0 N NEUTROPHIL # (test code = NT#) 9.52 K/mm3 1.8-7.7 H IMMATURE GRANULOCYTE # (test code = IG#) 0.29 x10 3/uL 0-0.03 H LYMPHOCYTE # (test code = LY#) 0.90 K/mm3 1.0-5.0 L MONOCYTE # (test code = MO#) 0.46 K/mm3 0-0.8 N EOSINOPHIL # (test code = EO#) 0.03 K/mm3 0.0-0.5 N BASOPHIL # (test code = BA#) 0.02 K/mm3 0.0-0.2 N NUCLEATED RBC # (test code = NRBC#) 0.00 K/mm3 0.0-0.1 N MANUAL DIFF REQUIRED (test code = MDIFF) NO, ONLY SCAN NEEDED DIFFERENTIAL [id number] 05:38:00* Test Item Value Reference Range Interpretation Comments STAIN ACCEPTABILITY (test code = STN ACCEPTABLE) CABOT RINGS (test code = CAB) MORPHOLOGY COMMENT (test code = MOC) PLATELET ESTIMATE (test code = PLTEST) PLATELET MORPHOLOGY (test code = PLTMORPH) CBC W/AUTO [id number] 05:38:00* Test Item Value Reference Range Interpretation Comments WHITE BLOOD CELL (test code = WBC) 11.2 K/mm3 4.5-12.5 N RED BLOOD CELL (test code = RBC) 3.72 mill/mm3 3.7-5.2 N HEMOGLOBIN (test code = HGB) 9.6 gram/dL 11.5-15.5 L HEMATOCRIT (test code = HCT) 31.1 % 36.0-46.0 L MEAN CELL VOLUME (test code = MCV) 83.6 fL 80-98 N MEAN CELL HGB (test code = MCH) 25.8 picogram 27.0-33.0 L MEAN CELL HGB CONCETRATION (test code = MCHC) 30.9 gram/dL 33.0-36. 0 L RED CELL DISTRIBUTION WIDTH (test code = RDW) 19.9 % 11.6-16. 2 H RED CELL DISTRIBUTION WIDTH SD (test code = RDW-SD) 55.5 fL 37 .0-51.0 H PLATELET COUNT (test code = PLT) 65 K/mm3 150-450 L MEAN PLATELET VOLUME (test code = MPV) TEST NOT PERFORMED fL 6.7-11 .0 NEUTROPHIL % (test code = NT%) 84.8 % 39.0-69.0 H IMMATURE GRANULOCYTE % (test code = IG%) 2.6 % 0.0-5.0 N LYMPHOCYTE % (test code = LY%) 8.0 % 25.0-55.0 L MONOCYTE % (test code = MO%) 4.1 % 0.0-10.0 N EOSINOPHIL % (test code = EO%) 0.3 % 0.0-5.0 N BASOPHIL % (test code = BA%) 0.2 % 0.0-1.0 N NUCLEATED RBC % (test code = NRBC%) 0.0 % 0-0 N NEUTROPHIL # (test code = NT#) 9.52 K/mm3 1.8-7.7 H IMMATURE GRANULOCYTE # (test code = IG#) 0.29 x10 3/uL 0-0.03 H LYMPHOCYTE # (test code = LY#) 0.90 K/mm3 1.0-5.0 L MONOCYTE # (test code = MO#) 0.46 K/mm3 0-0.8 N EOSINOPHIL # (test code = EO#) 0.03 K/mm3 0.0-0.5 N BASOPHIL # (test code = BA#) 0.02 K/mm3 0.0-0.2 N NUCLEATED RBC # (test code = NRBC#) 0.00 K/mm3 0.0-0.1 N MANUAL DIFF REQUIRED (test code = MDIFF) NO, ONLY SCAN NEEDED DIFFERENTIAL [id number] 05:38:00* Test Item Value Reference Range Interpretation Comments STAIN ACCEPTABILITY (test code = STN ACCEPTABLE) MORPHOLOGY COMMENT (test code = MOC) PLATELET ESTIMATE (test code = PLTEST) PLATELET MORPHOLOGY (test code = PLTMORPH) CBC W/AUTO [id number] 05:38:00* Test Item Value Reference Range Interpretation Comments WHITE BLOOD CELL (test code = WBC) 11.2 K/mm3 4.5-12.5 N RED BLOOD CELL (test code = RBC) 3.72 mill/mm3 3.7-5.2 N HEMOGLOBIN (test code = HGB) 9.6 gram/dL 11.5-15.5 L HEMATOCRIT (test code = HCT) 31.1 % 36.0-46.0 L MEAN CELL VOLUME (test code = MCV) 83.6 fL 80-98 N MEAN CELL HGB (test code = MCH) 25.8 picogram 27.0-33.0 L MEAN CELL HGB CONCETRATION (test code = MCHC) 30.9 gram/dL 33.0-36. 0 L RED CELL DISTRIBUTION WIDTH (test code = RDW) 19.9 % 11.6-16. 2 H RED CELL DISTRIBUTION WIDTH SD (test code = RDW-SD) 55.5 fL 37 .0-51.0 H PLATELET COUNT (test code = PLT) 65 K/mm3 150-450 L MEAN PLATELET VOLUME (test code = MPV) TEST NOT PERFORMED fL 6.7-11 .0 NEUTROPHIL % (test code = NT%) 84.8 % 39.0-69.0 H IMMATURE GRANULOCYTE % (test code = IG%) 2.6 % 0.0-5.0 N LYMPHOCYTE % (test code = LY%) 8.0 % 25.0-55.0 L MONOCYTE % (test code = MO%) 4.1 % 0.0-10.0 N EOSINOPHIL % (test code = EO%) 0.3 % 0.0-5.0 N BASOPHIL % (test code = BA%) 0.2 % 0.0-1.0 N NUCLEATED RBC % (test code = NRBC%) 0.0 % 0-0 N NEUTROPHIL # (test code = NT#) 9.52 K/mm3 1.8-7.7 H IMMATURE GRANULOCYTE # (test code = IG#) 0.29 x10 3/uL 0-0.03 H LYMPHOCYTE # (test code = LY#) 0.90 K/mm3 1.0-5.0 L MONOCYTE # (test code = MO#) 0.46 K/mm3 0-0.8 N EOSINOPHIL # (test code = EO#) 0.03 K/mm3 0.0-0.5 N BASOPHIL # (test code = BA#) 0.02 K/mm3 0.0-0.2 N NUCLEATED RBC # (test code = NRBC#) 0.00 K/mm3 0.0-0.1 N MANUAL DIFF REQUIRED (test code = MDIFF) NO, ONLY SCAN NEEDED DIFFERENTIAL [id number] 05:38:00* Test Item Value Reference Range Interpretation Comments STAIN ACCEPTABILITY (test code = STN ACCEPTABLE) CABOT RINGS (test code = CAB) MORPHOLOGY COMMENT (test code = MOC) PLATELET ESTIMATE (test code = PLTEST) PLATELET MORPHOLOGY (test code = PLTMORPH) BASIC METABOLIC [id number] 06:06:00* Test Item Value Reference Range Interpretation Comments SODIUM (test code = NA) 142 mmol/L 136-145 N POTASSIUM (test code = K) 3.8 mmol/L 3.5-5.1 N CHLORIDE (test code = CL) 106.0 mmol/L 98-107 N CARBON DIOXIDE (test code = CO2) 24.0 mmol/L 21-32 N ANION GAP (test code = GAP) 15.8 10-20 N GLUCOSE (test code = GLU) 183 mg/dL 74-106 H BLOOD UREA NITROGEN (test code = BUN) 39 mg/dL 7-18 H RESULT VERIFIED BY REPEAT ANALYSIS GLOMERULAR FILTRATION RATE (test code = GFR) 34 mL/min >=60 Estimated GFR by using Modified MDRD formula.Chronic kidney disease is defined as either kidney damageor GFR <60 mL/min/1.73 m2 for >3 months. CREATININE (test code = CREAT) 1.60 mg/dL 0.55-1.02 H Note change in reference range due to change in reagent. BUN/CREATININE RATIO (test code = BUN/CREA) 24.4 10-20 H CALCIUM (test code = CA) 8.1 mg/dL 8.5-10.1 L CBC W/MANUAL [id number] 05:37:00* Test Item Value Reference Range Interpretation Comments WHITE BLOOD CELL (test code = WBC) 15.5 K/mm3 4.5-12.5 H RED BLOOD CELL (test code = RBC) 3.78 mill/mm3 3.7-5.2 N HEMOGLOBIN (test code = HGB) 9.5 gram/dL 11.5-15.5 L RESULT VERIFIED BY REPEAT ANALYSIS HEMATOCRIT (test code = HCT) 31.2 % 36.0-46.0 L MEAN CELL VOLUME (test code = MCV) 82.5 fL 80-98 N MEAN CELL HGB (test code = MCH) 25.1 picogram 27.0-33.0 L MEAN CELL HGB CONCETRATION (test code = MCHC) 30.4 gram/dL 33.0-36. 0 L RED CELL DISTRIBUTION WIDTH (test code = RDW) 19.1 % 11.6-16. 2 H RED CELL DISTRIBUTION WIDTH SD (test code = RDW-SD) 51.9 fL 37 .0-51.0 H PLATELET COUNT (test code = PLT) 78 K/mm3 150-450 L MEAN PLATELET VOLUME (test code = MPV) TEST NOT PERFORMED fL 6.7-11 .0 Unable to determine due to platelet abnormality , please seethe platelet morphology. NEUTROPHIL % (test code = NT%) 86.3 % 39.0-69.0 H IMMATURE GRANULOCYTE % (test code = IG%) 4.2 % 0.0-5.0 N LYMPHOCYTE % (test code = LY%) 5.5 % 25.0-55.0 L MONOCYTE % (test code = MO%) 3.9 % 0.0-10.0 N EOSINOPHIL % (test code = EO%) 0.0 % 0.0-5.0 N BASOPHIL % (test code = BA%) 0.1 % 0.0-1.0 N NUCLEATED RBC % (test code = NRBC%) 0.1 % 0-0 H NEUTROPHIL # (test code = NT#) 13.33 K/mm3 1.8-7.7 H IMMATURE GRANULOCYTE # (test code = IG#) 0.65 x10 3/uL 0-0.03 H LYMPHOCYTE # (test code = LY#) 0.85 K/mm3 1.0-5.0 L MONOCYTE # (test code = MO#) 0.60 K/mm3 0-0.8 N EOSINOPHIL # (test code = EO#) 0.00 K/mm3 0.0-0.5 N BASOPHIL # (test code = BA#) 0.02 K/mm3 0.0-0.2 N NUCLEATED RBC # (test code = NRBC#) 0.02 K/mm3 0.0-0.1 N MANUAL DIFF REQUIRED (test code = MDIFF) NO, ONLY SCAN NEEDED STAIN ACCEPTABILITY (test code = STN ACCEPTABLE) STAIN ACCEPTABLE TOTAL CELLS COUNTED (test code = TCC) 114 #CELLS SEGMENTED NEUTROPHILS (test code = SEG) 94.7 % 39-69 H BAND NEUTROPHIL (test code = BAND) 0 % 0-10 N LYMPHOCYTE (test code = LYMPH) 1.8 % 25-55 L REACTIVE LYMPH (test code = RELYMPH) 0 % MONOCYTE (test code = MON) 3.5 % 0-10 N EOSINOPHIL (test code = EOS) 0 % 0.0-5.0 N BASOPHIL (test code = BASO) 0 % 0-1.0 N METAMYELOCYTE (test code = META) 0 % 0-0 N MYELOCYTE (test code = MYELO) 0 % 0.0-0.0 N PROMYELOCYTE (test code = PROM) 0 % 0-0 N POLYCHROMASIA (test code = POLC) 2+ HYPOCHROMIA (test code = HYPO) 1+ POIKILOCYTOSIS (test code = POIK) 1+ ANISOCYTOSIS (test code = ANISO) 1+ MICROCYTOSIS (test code = MICR) 1+ MACROCYTOSIS (test code = MACR) 1+ PLATELET ESTIMATE (test code = PLTEST) DECREASED PLATELET MORPHOLOGY (test code = PLTMORPH) NORMAL IMMATURE FORMS (test code = IMMAT) 0 % BASIC METABOLIC [id number] 05:30:00* Test Item Value Reference Range Interpretation Comments SODIUM (test code = NA) 142 mmol/L 136-145 N POTASSIUM (test code = K) 3.8 mmol/L 3.5-5.1 N CHLORIDE (test code = CL) 106.0 mmol/L 98-107 N CARBON DIOXIDE (test code = CO2) mmol/L 21-32 ANION GAP (test code = GAP) 10-20 GLUCOSE (test code = GLU) mg/dL 74-106 BLOOD UREA NITROGEN (test code = BUN) mg/dL 7-18 GLOMERULAR FILTRATION RATE (test code = GFR) mL/min >=60 CREATININE (test code = CREAT) mg/dL 0.55-1.02 BUN/CREATININE RATIO (test code = BUN/CREA) 10-20 CALCIUM (test code = CA) mg/dL 8.5-10.1 CBC W/MANUAL [id number] 05:21:00* Test Item Value Reference Range Interpretation Comments WHITE BLOOD CELL (test code = WBC) 15.5 K/mm3 4.5-12.5 H RED BLOOD CELL (test code = RBC) 3.78 mill/mm3 3.7-5.2 N HEMOGLOBIN (test code = HGB) 9.5 gram/dL 11.5-15.5 L RESULT VERIFIED BY REPEAT ANALYSIS HEMATOCRIT (test code = HCT) 31.2 % 36.0-46.0 L MEAN CELL VOLUME (test code = MCV) 82.5 fL 80-98 N MEAN CELL HGB (test code = MCH) 25.1 picogram 27.0-33.0 L MEAN CELL HGB CONCETRATION (test code = MCHC) 30.4 gram/dL 33.0-36. 0 L RED CELL DISTRIBUTION WIDTH (test code = RDW) 19.1 % 11.6-16. 2 H RED CELL DISTRIBUTION WIDTH SD (test code = RDW-SD) 51.9 fL 37 .0-51.0 H PLATELET COUNT (test code = PLT) 78 K/mm3 150-450 L MEAN PLATELET VOLUME (test code = MPV) TEST NOT PERFORMED fL 6.7-11 .0 Unable to determine due to platelet abnormality , please seethe platelet morphology. NEUTROPHIL % (test code = NT%) 86.3 % 39.0-69.0 H IMMATURE GRANULOCYTE % (test code = IG%) 4.2 % 0.0-5.0 N LYMPHOCYTE % (test code = LY%) 5.5 % 25.0-55.0 L MONOCYTE % (test code = MO%) 3.9 % 0.0-10.0 N EOSINOPHIL % (test code = EO%) 0.0 % 0.0-5.0 N BASOPHIL % (test code = BA%) 0.1 % 0.0-1.0 N NUCLEATED RBC % (test code = NRBC%) 0.1 % 0-0 H NEUTROPHIL # (test code = NT#) 13.33 K/mm3 1.8-7.7 H IMMATURE GRANULOCYTE # (test code = IG#) 0.65 x10 3/uL 0-0.03 H LYMPHOCYTE # (test code = LY#) 0.85 K/mm3 1.0-5.0 L MONOCYTE # (test code = MO#) 0.60 K/mm3 0-0.8 N EOSINOPHIL # (test code = EO#) 0.00 K/mm3 0.0-0.5 N BASOPHIL # (test code = BA#) 0.02 K/mm3 0.0-0.2 N NUCLEATED RBC # (test code = NRBC#) 0.02 K/mm3 0.0-0.1 N MANUAL DIFF REQUIRED (test code = MDIFF) NO, ONLY SCAN NEEDED STAIN ACCEPTABILITY (test code = STN ACCEPTABLE) TOTAL CELLS COUNTED (test code = TCC) #CELLS SEGMENTED NEUTROPHILS (test code = SEG) % 39-69 LYMPHOCYTE (test code = LYMPH) % 25-55 MONOCYTE (test code = MON) % 0-10 MORPHOLOGY COMMENT (test code = MOC) PLATELET ESTIMATE (test code = PLTEST) PLATELET MORPHOLOGY (test code = PLTMORPH) - US GUIDANCE VASC [id number] 13:48:00 Name: SIOBHAN BARBOSA [facility] [place] : 1965 Age/S: 53 / F [address] [facility] Unit #: [id number] Loc: [place] [address] Phys: Charito Leroy MD Acct: [id number] Dis Date: Status: ADM IN PHONE #: [phone] Exam Date: 09/27/2018 1157 FAX #: [phone] Reason: EXAMS: CPT CODE: [id number] US GUIDANCE VASC ACCESS [id number] Fluoro Time: 6 DAP (Gy m2): 1181 Air Kerma (mGy): 2.35 REASON FOR EXAM: Acute renal failure Exam Order Date: 09/27/2018 11:45 AM Attending M.Evon.: Charito Leroy MD PROCEDURE: Fluoroscopic and ultrasound [...] Signed Report (CON TINUED) Name: SIOBHAN BARBOSA [facility] SP : 1965 Age/S: 53 / F [address] [facility] Unit #: [id number] Loc: [place] [address] Phys: Charito Moura MD Acct: [id number] Dis Date: Status: ADM IN ONE #: [phone] Exam Date: 09/27/2018 1159 FAX #: [phone] Reason: EXAMS : CPT CODE: [id number] US GUID ANCE VASC ACCESS [id number] Fluoro Time: 6 DA P (Gy m2): 1181 Air Kerma (mGy): 2.35 <Continued> CC: Charito Leroy MD Technologist: Todd Andrews Trnnhb Date/Time: 09/27/2018 (5409) [email or web address] Orig Print D/T: S: 09/27/2018 (8388) PAGE 2 Signed Report - SP FLUORO GUID CTRL ACC [id number] 13:48:00 Name: SIOBHAN BARBOSA [facility] SP : 1965 Age/S: 53 [facility] [address] [facility]: [id number] Loc: [place] [address] Phys: Concepcion Leroy MD Acct: [id number] Di s Date: Status: ADM IN PHONE #: [phone] Exam Date: 09/27/2018 1157 FAX #: [phone] Reason: EXAMS: CPT CODE: [id number] SP FLUORO GUID CTRL ACC DEV [id number] Fluoro Time: 6 DAP (Gy m2 ): [...] proceed. [facility] and placed supine on the table. [...] is catheter is ready for use. at 1791 Reported and signed by: Sofya Rebolledo PAGE 1 Signed Report (CON TINUED) Name: SIOBHAN BARBOSA [facility] [place] : 1965 Age/S: 53 / F [address] [facility] #: [id number] Loc: [place] [address] Phys: Cahrito Moura MD Acct: [id number] Dis Date: Status: ADM IN PH ONE #: [phone] Exam Date: 09/27/2018 1151 FAX #: Reason: EXAMS : CPT CODE: [id number] SP FLUO RO GUID CTRL ACC DEV [id number] Fluoro Time: 6 DA P (Gy m2): 1181 Air Kerma (mGy): 2.35 <Continued> CC: Chartio Leroy MD Technologist: Todd Andrews Trnnhb Date/Time: 09/27/2018 (3418) [email or web address] Orig Print D/T: S: 09/27/2018 (8465) PAGE 2 Signed Report - XR CHEST 1 [id number] 12:56:00 FAX: Charito Lowe MD [phone] [place]: St: ADM Name: SIOBHAN ROBERTS [facility] : [birth year] 63 Age/S: 53/F [address] [facility] Unit #: [id number] Loc: V.2068 [place] [address] Phys: Jewel Reyez MD Acct: [id number] Dis Date: Status: ADM IN PHONE #: [phone] Exam Date: 09/27/2018 1243 FAX #: [phone] Reason: POST LINE PLACEMENT EXAMS: CPT CODE: [id number] XR CHEST 1 V 69618 HISTORY: Post line placement. COMPARISON: Previous day. Right jugular catheter with th e tip projected over the SVC. No pneumothorax. Mild scarring. No acute inf iltrates, effusion or congestion. Cardiomegaly. IMPRESSION : No pneumothorax after right jugular catheter placement. Depe ndent changes. at 1256 Reported and signed by: Krystian Johnson M.D. CC: Charito Leroy MD Technologist: Zoë Bhat(R) Trnscrd Date/Time/By: 09/27/2018 (2549) : By: [email or web address] Orig Print D/T: S: 09/27/2018 (7230) PAGE 1 Signed Report PROCALCITONIN (PCT)2018-09-27 07:13:00* Test Item Value Reference Range Interpretation Comments PROCALCITONIN (PCT) (test code = PROCAL) 23.90 ng/ml HH Results called to [id number] by MYAH 09/27/18 0713Critical results verified and [...] into account the patients history. CBC W/MANUAL [id number] 06:56:00* Test Item Value Reference Range Interpretation Comments WHITE BLOOD CELL (test code = WBC) 12.6 K/mm3 4.5-12.5 H RED BLOOD CELL (test code = RBC) 2.76 mill/mm3 3.7-5.2 L HEMOGLOBIN (test code = HGB) 6.6 gram/dL 11.5-15.5 L HEMATOCRIT (test code = HCT) 22.1 % 36.0-46.0 L MEAN CELL VOLUME (test code = MCV) 80.1 fL 80-98 N MEAN CELL HGB (test code = MCH) 23.9 picogram 27.0-33.0 L MEAN CELL HGB CONCETRATION (test code = MCHC) 29.9 gram/dL 33.0-36. 0 L RED CELL DISTRIBUTION WIDTH (test code = RDW) 19.0 % 11.6-16. 2 H RED CELL DISTRIBUTION WIDTH SD (test code = RDW-SD) 51.5 fL 37 .0-51.0 H PLATELET COUNT (test code = PLT) 101 K/mm3 150-450 L MEAN PLATELET VOLUME (test code = MPV) 12.6 fL 6.7-11.0 H NEUTROPHIL % (test code = NT%) 78.7 % 39.0-69.0 H IMMATURE GRANULOCYTE % (test code = IG%) 2.6 % 0.0-5.0 N LYMPHOCYTE % (test code = LY%) 12.7 % 25.0-55.0 L MONOCYTE % (test code = MO%) 5.8 % 0.0-10.0 N EOSINOPHIL % (test code = EO%) 0.1 % 0.0-5.0 N BASOPHIL % (test code = BA%) 0.1 % 0.0-1.0 N NUCLEATED RBC % (test code = NRBC%) 0.7 % 0-0 H NEUTROPHIL # (test code = NT#) 9.90 K/mm3 1.8-7.7 H IMMATURE GRANULOCYTE # (test code = IG#) 0.33 x10 3/uL 0-0.03 H LYMPHOCYTE # (test code = LY#) 1.60 K/mm3 1.0-5.0 N MONOCYTE # (test code = MO#) 0.73 K/mm3 0-0.8 N EOSINOPHIL # (test code = EO#) 0.01 K/mm3 0.0-0.5 N BASOPHIL # (test code = BA#) 0.01 K/mm3 0.0-0.2 N NUCLEATED RBC # (test code = NRBC#) 0.09 K/mm3 0.0-0.1 N MANUAL DIFF REQUIRED (test code = MDIFF) NO, ONLY SCAN NEEDED STAIN ACCEPTABILITY (test code = STN ACCEPTABLE) STAIN ACCEPTABLE TOTAL CELLS COUNTED (test code = TCC) 114 #CELLS SEGMENTED NEUTROPHILS (test code = SEG) 86.0 % 39-69 H BAND NEUTROPHIL (test code = BAND) 0.9 % 0-10 N LYMPHOCYTE (test code = LYMPH) 9.6 % 25-55 L REACTIVE LYMPH (test code = RELYMPH) 0 % MONOCYTE (test code = MON) 2.6 % 0-10 N EOSINOPHIL (test code = EOS) 0 % 0.0-5.0 N BASOPHIL (test code = BASO) 0 % 0-1.0 N METAMYELOCYTE (test code = META) 0 % 0-0 N MYELOCYTE (test code = MYELO) 0.9 % 0.0-0.0 H PROMYELOCYTE (test code = PROM) 0 % 0-0 N POLYCHROMASIA (test code = POLC) 2+ HYPOCHROMIA (test code = HYPO) 3+ ANISOCYTOSIS (test code = ANISO) 2+ MICROCYTOSIS (test code = MICR) 2+ PLATELET ESTIMATE (test code = PLTEST) DECREASED PLATELET MORPHOLOGY (test code = PLTMORPH) NORMAL IMMATURE FORMS (test code = IMMAT) 0 % COMPREHENSIVE METABOLIC [id number] 06:39:00* Test Item Value Reference Range Interpretation Comments SODIUM (test code = NA) 143 mmol/L 136-145 N POTASSIUM (test code = K) 4.4 mmol/L 3.5-5.1 N CHLORIDE (test code = CL) 109.0 mmol/L 98-107 H CARBON DIOXIDE (test code = CO2) 23.0 mmol/L 21-32 N ANION GAP (test code = GAP) 15.4 10-20 N GLUCOSE (test code = GLU) 105 mg/dL 74-106 N BLOOD UREA NITROGEN (test code = BUN) 66 mg/dL 7-18 H GLOMERULAR FILTRATION RATE (test code = GFR) 20 mL/min >=60 Estimated GFR by using Modified MDRD formula.Chronic kidney disease is defined as either kidney damageor GFR <60 mL/min/1.73 m2 for >3 months. CREATININE (test code = CREAT) 2.50 mg/dL 0.55-1.02 H Note change in reference range due to change in reagent. BUN/CREATININE RATIO (test code = BUN/CREA) 26.4 10-20 H TOTAL PROTEIN (test code = PROT) 4.8 gram/dL 6.4-8.2 L ALBUMIN (test code = ALB) 1.3 g/dL 3.4-5.0 L GLOBULIN (test code = GLOB) 3.5 gram/dL 2.7-4.2 N ALBUMIN/GLOBULIN RATIO (test code = A/G) 0.4 0.75-1.50 L CALCIUM (test code = CA) 8.1 mg/dL 8.5-10.1 L BILIRUBIN TOTAL (test code = BILT) 2.40 mg/dL 0.0-1.0 H SGOT/AST (test code = AST) 72 IUnit/L 15-37 H SGPT/ALT (test code = ALT) 77 IUnit/L 12-78 N ALKALINE PHOSPHATASE TOTAL (test code = ALKP) 244 IUnit/L 45-117 H Note change in reference range due to change in reagent. COMPREHENSIVE METABOLIC [id number] 06:34:00* Test Item Value Reference Range Interpretation Comments SODIUM (test code = NA) 143 mmol/L 136-145 N POTASSIUM (test code = K) 4.4 mmol/L 3.5-5.1 N CHLORIDE (test code = CL) 109.0 mmol/L 98-107 H CARBON DIOXIDE (test code = CO2) mmol/L 21-32 ANION GAP (test code = GAP) 10-20 GLUCOSE (test code = GLU) mg/dL 74-106 BLOOD UREA NITROGEN (test code = BUN) mg/dL 7-18 GLOMERULAR FILTRATION RATE (test code = GFR) mL/min >=60 CREATININE (test code = CREAT) mg/dL 0.55-1.02 BUN/CREATININE RATIO (test code = BUN/CREA) 10-20 TOTAL PROTEIN (test code = PROT) gram/dL 6.4-8.2 ALBUMIN (test code = ALB) g/dL 3.4-5.0 GLOBULIN (test code = GLOB) gram/dL 2.7-4.2 ALBUMIN/GLOBULIN RATIO (test code = A/G) 0.75-1.50 CALCIUM (test code = CA) mg/dL 8.5-10.1 BILIRUBIN TOTAL (test code = BILT) mg/dL 0.0-1.0 SGOT/AST (test code = AST) IUnit/L 15-37 SGPT/ALT (test code = ALT) IUnit/L 12-78 ALKALINE PHOSPHATASE TOTAL (test code = ALKP) IUnit/L 45-117 [id number] 06:34:00* Test Item Value Reference Range Interpretation Comments VANCOMYCIN (test code = VANCO) 15.5 UG/ML 5.0-45.0 N PROTHROMBIN [id number] 06:33:00* Test Item Value Reference Range Interpretation Comments PROTHROMBIN TIME PATIENT (test code = PTP) 14.9 seconds 9.0-14.0 H INTERNATIONAL NORMAL RATIO (test code = INR) 1.2 0.8-1.2 N The therapeutic range for oral anticoagulant therapy [...] IS PATIENT ON ANTICOAGULANTS? NHEPATITIS B CORE ANTIBODY,[id number] 06:15:00 * Test Item Value Reference Range Interpretation Comments HEPATITIS B CORE ANTIBODY,TOT (test code = HBCAB) Positive Nega tive A Performed At: [facility] [address] [place], [place] [id number] Arturo Mccormick MD Ph:[phone] AB HEPATITIS B [id number] 06:15:00* Test Item Value Reference Range Interpretation Comments AB HEPATITIS B SURFACE (test code = HBSAB) Non Reactive () Non Reactive: Inconsistent with immunity, less than 10 mIU/mL Reactive: Consistent with immunity, greater than 9.9 mIU/mL HEPATITIS B CORE ANTIBODY,[id number] 06:15:00* Test Item Value Reference Range Interpretation Comments HEPATITIS B CORE ANTIBODY,IGM (test code = HBCMAB) NEG ATIVE AB HEPATITIS B [id number] 06:15:00* Test Item Value Reference Range Interpretation Comments AB HEPATITIS B SURFACE (test code = HBSAB) Non Reactive () Non Reactive: Inconsistent with immunity, less than 10 mIU/mL Reactive: Consistent with immunity, greater than 9.9 mIU/mL HEPATITIS B CORE ANTIBODY,[id number] 06:15:00* Test Item Value Reference Range Interpretation Comments HEPATITIS B CORE ANTIBODY,IGM (test code = HBCMAB) Negative Neg ative Performed At: [facility] [address] [place], [place] [address] Arturo Mccormick MD Ph:[phone] CBC W/MANUAL [id number] 06:05:00* Test Item Value Reference Range Interpretation Comments WHITE BLOOD CELL (test code = WBC) 12.6 K/mm3 4.5-12.5 H RED BLOOD CELL (test code = RBC) 2.76 mill/mm3 3.7-5.2 L HEMOGLOBIN (test code = HGB) 6.6 gram/dL 11.5-15.5 L HEMATOCRIT (test code = HCT) 22.1 % 36.0-46.0 L MEAN CELL VOLUME (test code = MCV) 80.1 fL 80-98 N MEAN CELL HGB (test code = MCH) 23.9 picogram 27.0-33.0 L MEAN CELL HGB CONCETRATION (test code = MCHC) 29.9 gram/dL 33.0-36. 0 L RED CELL DISTRIBUTION WIDTH (test code = RDW) 19.0 % 11.6-16. 2 H RED CELL DISTRIBUTION WIDTH SD (test code = RDW-SD) 51.5 fL 37 .0-51.0 H PLATELET COUNT (test code = PLT) 101 K/mm3 150-450 L MEAN PLATELET VOLUME (test code = MPV) 12.6 fL 6.7-11.0 H NEUTROPHIL % (test code = NT%) 78.7 % 39.0-69.0 H IMMATURE GRANULOCYTE % (test code = IG%) 2.6 % 0.0-5.0 N LYMPHOCYTE % (test code = LY%) 12.7 % 25.0-55.0 L MONOCYTE % (test code = MO%) 5.8 % 0.0-10.0 N EOSINOPHIL % (test code = EO%) 0.1 % 0.0-5.0 N BASOPHIL % (test code = BA%) 0.1 % 0.0-1.0 N NUCLEATED RBC % (test code = NRBC%) 0.7 % 0-0 H NEUTROPHIL # (test code = NT#) 9.90 K/mm3 1.8-7.7 H IMMATURE GRANULOCYTE # (test code = IG#) 0.33 x10 3/uL 0-0.03 H LYMPHOCYTE # (test code = LY#) 1.60 K/mm3 1.0-5.0 N MONOCYTE # (test code = MO#) 0.73 K/mm3 0-0.8 N EOSINOPHIL # (test code = EO#) 0.01 K/mm3 0.0-0.5 N BASOPHIL # (test code = BA#) 0.01 K/mm3 0.0-0.2 N NUCLEATED RBC # (test code = NRBC#) 0.09 K/mm3 0.0-0.1 N MANUAL DIFF REQUIRED (test code = MDIFF) NO, ONLY SCAN NEEDED STAIN ACCEPTABILITY (test code = STN ACCEPTABLE) TOTAL CELLS COUNTED (test code = TCC) #CELLS SEGMENTED NEUTROPHILS (test code = SEG) % 39-69 LYMPHOCYTE (test code = LYMPH) % 25-55 MONOCYTE (test code = MON) % 0-10 MORPHOLOGY COMMENT (test code = MOC) PLATELET ESTIMATE (test code = PLTEST) PLATELET MORPHOLOGY (test code = PLTMORPH) - US GUIDANCE VASC [id number] 12:20:00 Name: SIOBHAN BARBOSA [facility] : 1965 Age/S: 53 / F [address] [facility] Unit #: [id number] Loc: [place] [address] Phys: Charito Leroy MD Acct: [id number] Dis Date: Status: ADM IN PHONE #: [phone] Exam Date: 09/26/2018 1143 FAX #: [phone] Reason: EXAMS: CPT CODE: [id number] US GUIDANCE VASC ACCESS 61909 Fluoro Time: 6 DAP (Gy m2): 971 [...] mGy Number of images obtained: 2 IMPRES KYALA: right IJ temporary dialysis catheter is ready for use. Electro nically Signed by Michelet Reyez on 09/26/2018 at 1220 Rep orted and signed by: Jewel Reyez M.D. PAGE 1 Signed Report (CONTINUED) Name: SIOBHAN BARBOSA [facility] : 1965 Age/S: 53 / F [address] Unit #: [id number] Loc: [place] [address] Phys: Charito Leroy MD Acct: [id number] Dis Date: Status: ADM IN PHONE #: [phone] Exam Date: 09/26/2018 11 43 FAX #: [phone] Reason: EXAMS: C PT CODE: [id number] US GUIDANCE VASC ACCESS 02068 Fluoro Time: 6 DAP (Gy m2): 971 Air Kerma (mGy): 2.10 < Continued> CC: Charito Leroy MD Technologist: Todd Andrews [facility] Date/Time: 09/26/2018 (1220) [email or web address] Orig Print D/T: S: 09/26/2018 (1223) PAGE 2 Signed Report - SP FLUORO GUID CTRL ACC DEV 2018-09-26 12:20:00 Name: SIOBHAN BARBOSA [facility] : 1965 Age/S: 53 / F [address] Unit #: [id number] Loc: [place] [address] Phys: Charito Leroy MD Acct: [id number] Dis Date: Status: ADM IN PHONE #: [phone] Exam Date: 09/26/2018 1143 FAX #: [phone] Reason: EXAMS: CPT CODE: [id number] SP FLUORO GUID CTRL ACC DEV 15640 Fluoro Time: 6 DAP (Gy m2): 971 [...] M.D. PAGE 1 Signed Report (CONTINUED) Name: SIOBHNA BARBOSA [facility] : 1965 Age/S: 53 / F [address] Unit #: [id number] Loc: [place] [address] Phys: Charito Leroy MD Acct: [id number] Dis Date: Status: ADM IN PHONE #: [phone] Exam Date: 09/26/2018 11 43 FAX #: [phone] Reason: EXAMS: C PT CODE: [id number] SP FLUORO GUID CTRL ACC DEV 79036 Fluoro Time: 6 DAP (Gy m2): 971 Air Kerma (mGy): 2.10 < Continued> CC: Charito Leroy MD Technologist: Todd Andrews Trnscb Date/Time: 09/26/2018 (6551) [email or web address] Orig Print D/T: S: 09/26/2018 (6339) PAGE 2 Signed Report - XR CHEST 1 [id number] 12:07:00 FAX: Charito Lowe MD [phone] [place]: St: ADM Name: SIOBHAN ROBERTS [facility] : [birth year] Age/S: 53/F [address] [facility] Unit #: [id number] Loc: V.2068 [place] [address] Phys: Jewel Reyez MD Acct: [id number] Dis Date: Status: ADM IN PHONE #: [phone] Exam Date: 09/26/2018 1155 FAX #: [phone] Reason: POST LINE PLACEMENT EXAMS: CPT CODE: [id number] XR CHEST 1 V 25118 REASON FOR EXAM: POST LINE PLACEMENT EXAM [...] Leroy MD Technologist: Zoë Bhat (R); Stephany RETANA(R) Trnscrd Date/Time/By: 09/26/2018 (4092) : By: [email or web address] Orig Print D/T: S: 09/26/2018 (2177) PAGE 1 Signed Report BASIC METABOLIC [id number] 05:47:00* Test Item Value Reference Range Interpretation Comments SODIUM (test code = NA) 142 mmol/L 136-145 N POTASSIUM (test code = K) 4.6 mmol/L 3.5-5.1 N CHLORIDE (test code = CL) 107.0 mmol/L 98-107 N CARBON DIOXIDE (test code = CO2) 22.0 mmol/L 21-32 N ANION GAP (test code = GAP) 17.6 10-20 N GLUCOSE (test code = GLU) 151 mg/dL 74-106 H BLOOD UREA NITROGEN (test code = BUN) 90 mg/dL 7-18 H GLOMERULAR FILTRATION RATE (test code = GFR) 15 mL/min >=60 Estimated GFR by using Modified MDRD formula.Chronic kidney disease is defined as either kidney damageor GFR <60 mL/min/1.73 m2 for >3 months. CREATININE (test code = CREAT) 3.20 mg/dL 0.55-1.02 H Note change in reference range due to change in reagent. BUN/CREATININE RATIO (test code = BUN/CREA) 28.1 10-20 H CALCIUM (test code = CA) 8.5 mg/dL 8.5-10.1 N [id number] 05:47:00* Test Item Value Reference Range Interpretation Comments PHOSPHORUS (test code = PHOS) 5.3 mg/dL 2.5-4.9 H [id number] 05:47:00* Test Item Value Reference Range Interpretation Comments MAGNESIUM (test code = MAG) 2.4 mg/dL 1.8-2.4 N CBC W/MANUAL [id number] 05:46:00* Test Item Value Reference Range Interpretation Comments WHITE BLOOD CELL (test code = WBC) 19.9 K/mm3 4.5-12.5 H RED BLOOD CELL (test code = RBC) 2.78 mill/mm3 3.7-5.2 L HEMOGLOBIN (test code = HGB) 6.4 gram/dL 11.5-15.5 L HEMATOCRIT (test code = HCT) 21.4 % 36.0-46.0 LL Results called to [id number] by [email or web address] 09/26/18 0533Critical results verified and read back by Nurse? Y MEAN CELL VOLUME (test code = MCV) 77.0 fL 80-98 L MEAN CELL HGB (test code = MCH) 23.0 picogram 27.0-33.0 L MEAN CELL HGB CONCETRATION (test code = MCHC) 29.9 gram/dL 33.0-36. 0 L RED CELL DISTRIBUTION WIDTH (test code = RDW) 18.8 % 11.6-16. 2 H RED CELL DISTRIBUTION WIDTH SD (test code = RDW-SD) 50.2 fL 37 .0-51.0 N PLATELET COUNT (test code = PLT) 142 K/mm3 150-450 L MEAN PLATELET VOLUME (test code = MPV) 12.3 fL 6.7-11.0 H IMMATURE GRANULOCYTE % (test code = IG%) 3.7 % 0.0-5.0 N NUCLEATED RBC % (test code = NRBC%) 0.4 % 0-0 H NEUTROPHIL # (test code = NT#) 16.88 K/mm3 1.8-7.7 H IMMATURE GRANULOCYTE # (test code = IG#) 0.73 x10 3/uL 0-0.03 H LYMPHOCYTE # (test code = LY#) 1.39 K/mm3 1.0-5.0 N MONOCYTE # (test code = MO#) 0.85 K/mm3 0-0.8 H EOSINOPHIL # (test code = EO#) 0.00 K/mm3 0.0-0.5 N BASOPHIL # (test code = BA#) 0.02 K/mm3 0.0-0.2 N NUCLEATED RBC # (test code = NRBC#) 0.08 K/mm3 0.0-0.1 N MANUAL DIFF REQUIRED (test code = MDIFF) YES STAIN ACCEPTABILITY (test code = STN ACCEPTABLE) STAIN ACCEPTABLE TOTAL CELLS COUNTED (test code = TCC) 114 #CELLS SEGMENTED NEUTROPHILS (test code = SEG) 93.0 % 39-69 H BAND NEUTROPHIL (test code = BAND) 0 % 0-10 N LYMPHOCYTE (test code = LYMPH) 3.5 % 25-55 L REACTIVE LYMPH (test code = RELYMPH) 0 % MONOCYTE (test code = MON) 3.5 % 0-10 N EOSINOPHIL (test code = EOS) 0 % 0.0-5.0 N BASOPHIL (test code = BASO) 0 % 0-1.0 N METAMYELOCYTE (test code = META) 0 % 0-0 N MYELOCYTE (test code = MYELO) 0 % 0.0-0.0 N PROMYELOCYTE (test code = PROM) 0 % 0-0 N POLYCHROMASIA (test code = POLC) 1+ HYPOCHROMIA (test code = HYPO) 2+ POIKILOCYTOSIS (test code = POIK) 1+ ANISOCYTOSIS (test code = ANISO) 1+ MACROCYTOSIS (test code = MACR) 1+ TARGET CELLS (test code = TGT) 1+ PLATELET ESTIMATE (test code = PLTEST) ADEQUATE PLATELET MORPHOLOGY (test code = PLTMORPH) NORMAL IMMATURE FORMS (test code = IMMAT) 0 % BASIC METABOLIC [id number] 05:44:00* Test Item Value Reference Range Interpretation Comments SODIUM (test code = NA) 142 mmol/L 136-145 N POTASSIUM (test code = K) 4.6 mmol/L 3.5-5.1 N CHLORIDE (test code = CL) 107.0 mmol/L 98-107 N CARBON DIOXIDE (test code = CO2) mmol/L 21-32 ANION GAP (test code = GAP) 10-20 GLUCOSE (test code = GLU) mg/dL 74-106 BLOOD UREA NITROGEN (test code = BUN) mg/dL 7-18 GLOMERULAR FILTRATION RATE (test code = GFR) mL/min >=60 CREATININE (test code = CREAT) mg/dL 0.55-1.02 BUN/CREATININE RATIO (test code = BUN/CREA) 10-20 CALCIUM (test code = CA) 8.5 mg/dL 8.5-10.1 N [id number] 05:44:00* Test Item Value Reference Range Interpretation Comments PHOSPHORUS (test code = PHOS) mg/dL 2.5-4.9 [id number] 05:44:00* Test Item Value Reference Range Interpretation Comments MAGNESIUM (test code = MAG) mg/dL 1.8-2.4 PROTHROMBIN [id number] 05:39:00* Test Item Value Reference Range Interpretation Comments PROTHROMBIN TIME PATIENT (test code = PTP) 15.3 seconds 9.0-14.0 H INTERNATIONAL NORMAL RATIO (test code = INR) 1.3 0.8-1.2 H The therapeutic range for oral anticoagulant therapy [...] heart valves (2.5-3.5) IS PATIENT ON ANTICOAGULANTS? NCBC W/MANUAL [id number] 05:33:00* Test Item Value Reference Range Interpretation Comments WHITE BLOOD CELL (test code = WBC) 19.9 K/mm3 4.5-12.5 H RED BLOOD CELL (test code = RBC) 2.78 mill/mm3 3.7-5.2 L HEMOGLOBIN (test code = HGB) 6.4 gram/dL 11.5-15.5 L HEMATOCRIT (test code = HCT) 21.4 % 36.0-46.0 Results called to [id number] by ANAYELI 09/26/18 0533Critical results verified and read back by Nurse? Y MEAN CELL VOLUME (test code = MCV) 77.0 fL 80-98 L MEAN CELL HGB (test code = MCH) 23.0 picogram 27.0-33.0 L MEAN CELL HGB CONCETRATION (test code = MCHC) 29.9 gram/dL 33.0-36. 0 L RED CELL DISTRIBUTION WIDTH (test code = RDW) 18.8 % 11.6-16. 2 H RED CELL DISTRIBUTION WIDTH SD (test code = RDW-SD) 50.2 fL 37 .0-51.0 N PLATELET COUNT (test code = PLT) 142 K/mm3 150-450 L MEAN PLATELET VOLUME (test code = MPV) 12.3 fL 6.7-11.0 H IMMATURE GRANULOCYTE % (test code = IG%) 3.7 % 0.0-5.0 N NUCLEATED RBC % (test code = NRBC%) 0.4 % 0-0 H NEUTROPHIL # (test code = NT#) 16.88 K/mm3 1.8-7.7 H IMMATURE GRANULOCYTE # (test code = IG#) 0.73 x10 3/uL 0-0.03 H LYMPHOCYTE # (test code = LY#) 1.39 K/mm3 1.0-5.0 N MONOCYTE # (test code = MO#) 0.85 K/mm3 0-0.8 H EOSINOPHIL # (test code = EO#) 0.00 K/mm3 0.0-0.5 N BASOPHIL # (test code = BA#) 0.02 K/mm3 0.0-0.2 N NUCLEATED RBC # (test code = NRBC#) 0.08 K/mm3 0.0-0.1 N MANUAL DIFF REQUIRED (test code = MDIFF) YES STAIN ACCEPTABILITY (test code = STN ACCEPTABLE) TOTAL CELLS COUNTED (test code = TCC) #CELLS SEGMENTED NEUTROPHILS (test code = SEG) % 39-69 LYMPHOCYTE (test code = LYMPH) % 25-55 MONOCYTE (test code = MON) % 0-10 EOSINOPHIL (test code = EOS) % 0.0-5.0 CABOT RINGS (test code = CAB) MORPHOLOGY COMMENT (test code = MOC) PLATELET ESTIMATE (test code = PLTEST) PLATELET MORPHOLOGY (test code = PLTMORPH) CBC W/MANUAL [id number] 05:33:00* Test Item Value Reference Range Interpretation Comments WHITE BLOOD CELL (test code = WBC) 19.9 K/mm3 4.5-12.5 H RED BLOOD CELL (test code = RBC) 2.78 mill/mm3 3.7-5.2 L HEMOGLOBIN (test code = HGB) 6.4 gram/dL 11.5-15.5 L HEMATOCRIT (test code = HCT) 21.4 % 36.0-46.0 LL Results called to [id number] by [email or web address] 09/26/18 0533Critical results verified and read back by Nurse? Y MEAN CELL VOLUME (test code = MCV) 77.0 fL 80-98 L MEAN CELL HGB (test code = MCH) 23.0 picogram 27.0-33.0 L MEAN CELL HGB CONCETRATION (test code = MCHC) 29.9 gram/dL 33.0-36. 0 L RED CELL DISTRIBUTION WIDTH (test code = RDW) 18.8 % 11.6-16. 2 H RED CELL DISTRIBUTION WIDTH SD (test code = RDW-SD) 50.2 fL 37 .0-51.0 N PLATELET COUNT (test code = PLT) 142 K/mm3 150-450 L MEAN PLATELET VOLUME (test code = MPV) 12.3 fL 6.7-11.0 H IMMATURE GRANULOCYTE % (test code = IG%) 3.7 % 0.0-5.0 N NUCLEATED RBC % (test code = NRBC%) 0.4 % 0-0 H NEUTROPHIL # (test code = NT#) 16.88 K/mm3 1.8-7.7 H IMMATURE GRANULOCYTE # (test code = IG#) 0.73 x10 3/uL 0-0.03 H LYMPHOCYTE # (test code = LY#) 1.39 K/mm3 1.0-5.0 N MONOCYTE # (test code = MO#) 0.85 K/mm3 0-0.8 H EOSINOPHIL # (test code = EO#) 0.00 K/mm3 0.0-0.5 N BASOPHIL # (test code = BA#) 0.02 K/mm3 0.0-0.2 N NUCLEATED RBC # (test code = NRBC#) 0.08 K/mm3 0.0-0.1 N MANUAL DIFF REQUIRED (test code = MDIFF) YES STAIN ACCEPTABILITY (test code = STN ACCEPTABLE) TOTAL CELLS COUNTED (test code = TCC) #CELLS SEGMENTED NEUTROPHILS (test code = SEG) % 39-69 LYMPHOCYTE (test code = LYMPH) % 25-55 MONOCYTE (test code = MON) % 0-10 EOSINOPHIL (test code = EOS) % 0.0-5.0 CABOT RINGS (test code = CAB) MORPHOLOGY COMMENT (test code = MOC) PLATELET ESTIMATE (test code = PLTEST) PLATELET MORPHOLOGY (test code = PLTMORPH) CBC W/MANUAL [id number] 05:33:00* Test Item Value Reference Range Interpretation Comments WHITE BLOOD CELL (test code = WBC) 19.9 K/mm3 4.5-12.5 H RED BLOOD CELL (test code = RBC) 2.78 mill/mm3 3.7-5.2 L HEMOGLOBIN (test code = HGB) 6.4 gram/dL 11.5-15.5 L HEMATOCRIT (test code = HCT) 21.4 % 36.0-46.0 LL Results called to [id number] by [email or web address] 09/26/18 0533Critical results verified and read back by Nurse? Y MEAN CELL VOLUME (test code = MCV) 77.0 fL 80-98 L MEAN CELL HGB (test code = MCH) 23.0 picogram 27.0-33.0 L MEAN CELL HGB CONCETRATION (test code = MCHC) 29.9 gram/dL 33.0-36. 0 L RED CELL DISTRIBUTION WIDTH (test code = RDW) 18.8 % 11.6-16. 2 H RED CELL DISTRIBUTION WIDTH SD (test code = RDW-SD) 50.2 fL 37 .0-51.0 N PLATELET COUNT (test code = PLT) 142 K/mm3 150-450 L MEAN PLATELET VOLUME (test code = MPV) 12.3 fL 6.7-11.0 H IMMATURE GRANULOCYTE % (test code = IG%) 3.7 % 0.0-5.0 N NUCLEATED RBC % (test code = NRBC%) 0.4 % 0-0 H NEUTROPHIL # (test code = NT#) 16.88 K/mm3 1.8-7.7 H IMMATURE GRANULOCYTE # (test code = IG#) 0.73 x10 3/uL 0-0.03 H LYMPHOCYTE # (test code = LY#) 1.39 K/mm3 1.0-5.0 N MONOCYTE # (test code = MO#) 0.85 K/mm3 0-0.8 H EOSINOPHIL # (test code = EO#) 0.00 K/mm3 0.0-0.5 N BASOPHIL # (test code = BA#) 0.02 K/mm3 0.0-0.2 N NUCLEATED RBC # (test code = NRBC#) 0.08 K/mm3 0.0-0.1 N MANUAL DIFF REQUIRED (test code = MDIFF) YES STAIN ACCEPTABILITY (test code = STN ACCEPTABLE) TOTAL CELLS COUNTED (test code = TCC) #CELLS SEGMENTED NEUTROPHILS (test code = SEG) % 39-69 LYMPHOCYTE (test code = LYMPH) % 25-55 MONOCYTE (test code = MON) % 0-10 EOSINOPHIL (test code = EOS) % 0.0-5.0 MORPHOLOGY COMMENT (test code = MOC) PLATELET ESTIMATE (test code = PLTEST) PLATELET MORPHOLOGY (test code = PLTMORPH) CBC W/MANUAL [id number] 05:33:00* Test Item Value Reference Range Interpretation Comments WHITE BLOOD CELL (test code = WBC) 19.9 K/mm3 4.5-12.5 H RED BLOOD CELL (test code = RBC) 2.78 mill/mm3 3.7-5.2 L HEMOGLOBIN (test code = HGB) 6.4 gram/dL 11.5-15.5 L HEMATOCRIT (test code = HCT) 21.4 % 36.0-46.0 LL Results called to [id number] by [email or web address] 09/26/18 0533Critical results verified and read back by Nurse? Y MEAN CELL VOLUME (test code = MCV) 77.0 fL 80-98 L MEAN CELL HGB (test code = MCH) 23.0 picogram 27.0-33.0 L MEAN CELL HGB CONCETRATION (test code = MCHC) 29.9 gram/dL 33.0-36. 0 L RED CELL DISTRIBUTION WIDTH (test code = RDW) 18.8 % 11.6-16. 2 H RED CELL DISTRIBUTION WIDTH SD (test code = RDW-SD) 50.2 fL 37 .0-51.0 N PLATELET COUNT (test code = PLT) 142 K/mm3 150-450 L MEAN PLATELET VOLUME (test code = MPV) 12.3 fL 6.7-11.0 H IMMATURE GRANULOCYTE % (test code = IG%) 3.7 % 0.0-5.0 N NUCLEATED RBC % (test code = NRBC%) 0.4 % 0-0 H NEUTROPHIL # (test code = NT#) 16.88 K/mm3 1.8-7.7 H IMMATURE GRANULOCYTE # (test code = IG#) 0.73 x10 3/uL 0-0.03 H LYMPHOCYTE # (test code = LY#) 1.39 K/mm3 1.0-5.0 N MONOCYTE # (test code = MO#) 0.85 K/mm3 0-0.8 H EOSINOPHIL # (test code = EO#) 0.00 K/mm3 0.0-0.5 N BASOPHIL # (test code = BA#) 0.02 K/mm3 0.0-0.2 N NUCLEATED RBC # (test code = NRBC#) 0.08 K/mm3 0.0-0.1 N MANUAL DIFF REQUIRED (test code = MDIFF) YES STAIN ACCEPTABILITY (test code = STN ACCEPTABLE) TOTAL CELLS COUNTED (test code = TCC) #CELLS SEGMENTED NEUTROPHILS (test code = SEG) % 39-69 LYMPHOCYTE (test code = LYMPH) % 25-55 MONOCYTE (test code = MON) % 0-10 MORPHOLOGY COMMENT (test code = MOC) PLATELET ESTIMATE (test code = PLTEST) PLATELET MORPHOLOGY (test code = PLTMORPH) CBC W/MANUAL [id number] 05:33:00* Test Item Value Reference Range Interpretation Comments WHITE BLOOD CELL (test code = WBC) 19.9 K/mm3 4.5-12.5 H RED BLOOD CELL (test code = RBC) 2.78 mill/mm3 3.7-5.2 L HEMOGLOBIN (test code = HGB) 6.4 gram/dL 11.5-15.5 L HEMATOCRIT (test code = HCT) 21.4 % 36.0-46.0 Results called to [id number] by MELISSA.JP1 09/26/18 0533Critical results verified and read back by Nurse? Y MEAN CELL VOLUME (test code = MCV) 77.0 fL 80-98 L MEAN CELL HGB (test code = MCH) 23.0 picogram 27.0-33.0 L MEAN CELL HGB CONCETRATION (test code = MCHC) 29.9 gram/dL 33.0-36. 0 L RED CELL DISTRIBUTION WIDTH (test code = RDW) 18.8 % 11.6-16. 2 H RED CELL DISTRIBUTION WIDTH SD (test code = RDW-SD) 50.2 fL 37 .0-51.0 N PLATELET COUNT (test code = PLT) 142 K/mm3 150-450 L MEAN PLATELET VOLUME (test code = MPV) 12.3 fL 6.7-11.0 H IMMATURE GRANULOCYTE % (test code = IG%) 3.7 % 0.0-5.0 N NUCLEATED RBC % (test code = NRBC%) 0.4 % 0-0 H NEUTROPHIL # (test code = NT#) 16.88 K/mm3 1.8-7.7 H IMMATURE GRANULOCYTE # (test code = IG#) 0.73 x10 3/uL 0-0.03 H LYMPHOCYTE # (test code = LY#) 1.39 K/mm3 1.0-5.0 N MONOCYTE # (test code = MO#) 0.85 K/mm3 0-0.8 H EOSINOPHIL # (test code = EO#) 0.00 K/mm3 0.0-0.5 N BASOPHIL # (test code = BA#) 0.02 K/mm3 0.0-0.2 N NUCLEATED RBC # (test code = NRBC#) 0.08 K/mm3 0.0-0.1 N MANUAL DIFF REQUIRED (test code = MDIFF) YES STAIN ACCEPTABILITY (test code = STN ACCEPTABLE) TOTAL CELLS COUNTED (test code = TCC) #CELLS SEGMENTED NEUTROPHILS (test code = SEG) % 39-69 LYMPHOCYTE (test code = LYMPH) % 25-55 MONOCYTE (test code = MON) % 0-10 EOSINOPHIL (test code = EOS) % 0.0-5.0 CABOT RINGS (test code = CAB) MORPHOLOGY COMMENT (test code = MOC) PLATELET ESTIMATE (test code = PLTEST) PLATELET MORPHOLOGY (test code = PLTMORPH) AG HEPAT B [id number] 20:08:00* Test Item Value Reference Range Interpretation Comments AG HEPAT B SURF (test code = HBSAG) Nonreactive Index Nonreactive CBC W/MANUAL [id number] 05:40:00* Test Item Value Reference Range Interpretation Comments WHITE BLOOD CELL (test code = WBC) 25.6 K/mm3 4.5-12.5 H RED BLOOD CELL (test code = RBC) 3.03 mill/mm3 3.7-5.2 L HEMOGLOBIN (test code = HGB) 7.1 gram/dL 11.5-15.5 L HEMATOCRIT (test code = HCT) 23.2 % 36.0-46.0 L MEAN CELL VOLUME (test code = MCV) 76.6 fL 80-98 L MEAN CELL HGB (test code = MCH) 23.4 picogram 27.0-33.0 L MEAN CELL HGB CONCETRATION (test code = MCHC) 30.6 gram/dL 33.0-36. 0 L RED CELL DISTRIBUTION WIDTH (test code = RDW) 18.4 % 11.6-16. 2 H RED CELL DISTRIBUTION WIDTH SD (test code = RDW-SD) 49.6 fL 37 .0-51.0 N PLATELET COUNT (test code = PLT) 173 K/mm3 150-450 N MEAN PLATELET VOLUME (test code = MPV) 13.7 fL 6.7-11.0 H IMMATURE GRANULOCYTE % (test code = IG%) 2.5 % 0.0-5.0 N NUCLEATED RBC % (test code = NRBC%) 0.2 % 0-0 H NEUTROPHIL # (test code = NT#) 22.76 K/mm3 1.8-7.7 H IMMATURE GRANULOCYTE # (test code = IG#) 0.65 x10 3/uL 0-0.03 H LYMPHOCYTE # (test code = LY#) 1.11 K/mm3 1.0-5.0 N MONOCYTE # (test code = MO#) 1.02 K/mm3 0-0.8 H EOSINOPHIL # (test code = EO#) 0.00 K/mm3 0.0-0.5 N BASOPHIL # (test code = BA#) 0.03 K/mm3 0.0-0.2 N NUCLEATED RBC # (test code = NRBC#) 0.06 K/mm3 0.0-0.1 N MANUAL DIFF REQUIRED (test code = MDIFF) YES STAIN ACCEPTABILITY (test code = STN ACCEPTABLE) STAIN ACCEPTABLE TOTAL CELLS COUNTED (test code = TCC) 114 #CELLS SEGMENTED NEUTROPHILS (test code = SEG) 93.0 % 39-69 H BAND NEUTROPHIL (test code = BAND) 0 % 0-10 N LYMPHOCYTE (test code = LYMPH) 3.5 % 25-55 L REACTIVE LYMPH (test code = RELYMPH) 0 % MONOCYTE (test code = MON) 3.5 % 0-10 N EOSINOPHIL (test code = EOS) 0 % 0.0-5.0 N BASOPHIL (test code = BASO) 0 % 0-1.0 N METAMYELOCYTE (test code = META) 0 % 0-0 N MYELOCYTE (test code = MYELO) 0 % 0.0-0.0 N PROMYELOCYTE (test code = PROM) 0 % 0-0 N HYPOCHROMIA (test code = HYPO) 1+ ANISOCYTOSIS (test code = ANISO) 1+ PLATELET ESTIMATE (test code = PLTEST) ADEQUATE PLATELET MORPHOLOGY (test code = PLTMORPH) NORMAL IMMATURE FORMS (test code = IMMAT) 0 % BASIC METABOLIC [id number] 05:38:00* Test Item Value Reference Range Interpretation Comments SODIUM (test code = NA) 138 mmol/L 136-145 N POTASSIUM (test code = K) 5.2 mmol/L 3.5-5.1 H CHLORIDE (test code = CL) 104.0 mmol/L 98-107 N CARBON DIOXIDE (test code = CO2) 24.0 mmol/L 21-32 N ANION GAP (test code = GAP) 15.2 10-20 N GLUCOSE (test code = GLU) 180 mg/dL 74-106 H BLOOD UREA NITROGEN (test code = BUN) 91 mg/dL 7-18 H GLOMERULAR FILTRATION RATE (test code = GFR) 14 mL/min >=60 Estimated GFR by using Modified MDRD formula.Chronic kidney disease is defined as either kidney damageor GFR <60 mL/min/1.73 m2 for >3 months. CREATININE (test code = CREAT) 3.50 mg/dL 0.55-1.02 H Note change in reference range due to change in reagent. BUN/CREATININE RATIO (test code = BUN/CREA) 26.0 10-20 H CALCIUM (test code = CA) 8.8 mg/dL 8.5-10.1 N BASIC METABOLIC [id number] 05:26:00* Test Item Value Reference Range Interpretation Comments SODIUM (test code = NA) 138 mmol/L 136-145 N POTASSIUM (test code = K) 5.2 mmol/L 3.5-5.1 H CHLORIDE (test code = CL) 104.0 mmol/L 98-107 N CARBON DIOXIDE (test code = CO2) mmol/L 21-32 ANION GAP (test code = GAP) 10-20 GLUCOSE (test code = GLU) mg/dL 74-106 BLOOD UREA NITROGEN (test code = BUN) mg/dL 7-18 GLOMERULAR FILTRATION RATE (test code = GFR) mL/min >=60 CREATININE (test code = CREAT) mg/dL 0.55-1.02 BUN/CREATININE RATIO (test code = BUN/CREA) 10-20 CALCIUM (test code = CA) mg/dL 8.5-10.1 CBC W/MANUAL [id number] 05:20:00* Test Item Value Reference Range Interpretation Comments WHITE BLOOD CELL (test code = WBC) 25.6 K/mm3 4.5-12.5 H RED BLOOD CELL (test code = RBC) 3.03 mill/mm3 3.7-5.2 L HEMOGLOBIN (test code = HGB) 7.1 gram/dL 11.5-15.5 L HEMATOCRIT (test code = HCT) 23.2 % 36.0-46.0 L MEAN CELL VOLUME (test code = MCV) 76.6 fL 80-98 L MEAN CELL HGB (test code = MCH) 23.4 picogram 27.0-33.0 L MEAN CELL HGB CONCETRATION (test code = MCHC) 30.6 gram/dL 33.0-36. 0 L RED CELL DISTRIBUTION WIDTH (test code = RDW) 18.4 % 11.6-16. 2 H RED CELL DISTRIBUTION WIDTH SD (test code = RDW-SD) 49.6 fL 37 .0-51.0 N PLATELET COUNT (test code = PLT) 173 K/mm3 150-450 N MEAN PLATELET VOLUME (test code = MPV) 13.7 fL 6.7-11.0 H IMMATURE GRANULOCYTE % (test code = IG%) 2.5 % 0.0-5.0 N NUCLEATED RBC % (test code = NRBC%) 0.2 % 0-0 H NEUTROPHIL # (test code = NT#) 22.76 K/mm3 1.8-7.7 H IMMATURE GRANULOCYTE # (test code = IG#) 0.65 x10 3/uL 0-0.03 H LYMPHOCYTE # (test code = LY#) 1.11 K/mm3 1.0-5.0 N MONOCYTE # (test code = MO#) 1.02 K/mm3 0-0.8 H EOSINOPHIL # (test code = EO#) 0.00 K/mm3 0.0-0.5 N BASOPHIL # (test code = BA#) 0.03 K/mm3 0.0-0.2 N NUCLEATED RBC # (test code = NRBC#) 0.06 K/mm3 0.0-0.1 N MANUAL DIFF REQUIRED (test code = MDIFF) YES STAIN ACCEPTABILITY (test code = STN ACCEPTABLE) TOTAL CELLS COUNTED (test code = TCC) #CELLS SEGMENTED NEUTROPHILS (test code = SEG) % 39-69 LYMPHOCYTE (test code = LYMPH) % 25-55 MONOCYTE (test code = MON) % 0-10 EOSINOPHIL (test code = EOS) % 0.0-5.0 CABOT RINGS (test code = CAB) MORPHOLOGY COMMENT (test code = MOC) PLATELET ESTIMATE (test code = PLTEST) PLATELET MORPHOLOGY (test code = PLTMORPH) CBC W/MANUAL [id number] 05:20:00* Test Item Value Reference Range Interpretation Comments WHITE BLOOD CELL (test code = WBC) 25.6 K/mm3 4.5-12.5 H RED BLOOD CELL (test code = RBC) 3.03 mill/mm3 3.7-5.2 L HEMOGLOBIN (test code = HGB) 7.1 gram/dL 11.5-15.5 L HEMATOCRIT (test code = HCT) 23.2 % 36.0-46.0 L MEAN CELL VOLUME (test code = MCV) 76.6 fL 80-98 L MEAN CELL HGB (test code = MCH) 23.4 picogram 27.0-33.0 L MEAN CELL HGB CONCETRATION (test code = MCHC) 30.6 gram/dL 33.0-36. 0 L RED CELL DISTRIBUTION WIDTH (test code = RDW) 18.4 % 11.6-16. 2 H RED CELL DISTRIBUTION WIDTH SD (test code = RDW-SD) 49.6 fL 37 .0-51.0 N PLATELET COUNT (test code = PLT) 173 K/mm3 150-450 N MEAN PLATELET VOLUME (test code = MPV) 13.7 fL 6.7-11.0 H IMMATURE GRANULOCYTE % (test code = IG%) 2.5 % 0.0-5.0 N NUCLEATED RBC % (test code = NRBC%) 0.2 % 0-0 H NEUTROPHIL # (test code = NT#) 22.76 K/mm3 1.8-7.7 H IMMATURE GRANULOCYTE # (test code = IG#) 0.65 x10 3/uL 0-0.03 H LYMPHOCYTE # (test code = LY#) 1.11 K/mm3 1.0-5.0 N MONOCYTE # (test code = MO#) 1.02 K/mm3 0-0.8 H EOSINOPHIL # (test code = EO#) 0.00 K/mm3 0.0-0.5 N BASOPHIL # (test code = BA#) 0.03 K/mm3 0.0-0.2 N NUCLEATED RBC # (test code = NRBC#) 0.06 K/mm3 0.0-0.1 N MANUAL DIFF REQUIRED (test code = MDIFF) YES STAIN ACCEPTABILITY (test code = STN ACCEPTABLE) TOTAL CELLS COUNTED (test code = TCC) #CELLS SEGMENTED NEUTROPHILS (test code = SEG) % 39-69 LYMPHOCYTE (test code = LYMPH) % 25-55 MONOCYTE (test code = MON) % 0-10 EOSINOPHIL (test code = EOS) % 0.0-5.0 CABOT RINGS (test code = CAB) MORPHOLOGY COMMENT (test code = MOC) PLATELET ESTIMATE (test code = PLTEST) PLATELET MORPHOLOGY (test code = PLTMORPH) CBC W/MANUAL [id number] 05:20:00* Test Item Value Reference Range Interpretation Comments WHITE BLOOD CELL (test code = WBC) 25.6 K/mm3 4.5-12.5 H RED BLOOD CELL (test code = RBC) 3.03 mill/mm3 3.7-5.2 L HEMOGLOBIN (test code = HGB) 7.1 gram/dL 11.5-15.5 L HEMATOCRIT (test code = HCT) 23.2 % 36.0-46.0 L MEAN CELL VOLUME (test code = MCV) 76.6 fL 80-98 L MEAN CELL HGB (test code = MCH) 23.4 picogram 27.0-33.0 L MEAN CELL HGB CONCETRATION (test code = MCHC) 30.6 gram/dL 33.0-36. 0 L RED CELL DISTRIBUTION WIDTH (test code = RDW) 18.4 % 11.6-16. 2 H RED CELL DISTRIBUTION WIDTH SD (test code = RDW-SD) 49.6 fL 37 .0-51.0 N PLATELET COUNT (test code = PLT) 173 K/mm3 150-450 N MEAN PLATELET VOLUME (test code = MPV) 13.7 fL 6.7-11.0 H IMMATURE GRANULOCYTE % (test code = IG%) 2.5 % 0.0-5.0 N NUCLEATED RBC % (test code = NRBC%) 0.2 % 0-0 H NEUTROPHIL # (test code = NT#) 22.76 K/mm3 1.8-7.7 H IMMATURE GRANULOCYTE # (test code = IG#) 0.65 x10 3/uL 0-0.03 H LYMPHOCYTE # (test code = LY#) 1.11 K/mm3 1.0-5.0 N MONOCYTE # (test code = MO#) 1.02 K/mm3 0-0.8 H EOSINOPHIL # (test code = EO#) 0.00 K/mm3 0.0-0.5 N BASOPHIL # (test code = BA#) 0.03 K/mm3 0.0-0.2 N NUCLEATED RBC # (test code = NRBC#) 0.06 K/mm3 0.0-0.1 N MANUAL DIFF REQUIRED (test code = MDIFF) YES STAIN ACCEPTABILITY (test code = STN ACCEPTABLE) TOTAL CELLS COUNTED (test code = TCC) #CELLS SEGMENTED NEUTROPHILS (test code = SEG) % 39-69 LYMPHOCYTE (test code = LYMPH) % 25-55 MONOCYTE (test code = MON) % 0-10 EOSINOPHIL (test code = EOS) % 0.0-5.0 MORPHOLOGY COMMENT (test code = MOC) PLATELET ESTIMATE (test code = PLTEST) PLATELET MORPHOLOGY (test code = PLTMORPH) CBC W/MANUAL [id number] 05:20:00* Test Item Value Reference Range Interpretation Comments WHITE BLOOD CELL (test code = WBC) 25.6 K/mm3 4.5-12.5 H RED BLOOD CELL (test code = RBC) 3.03 mill/mm3 3.7-5.2 L HEMOGLOBIN (test code = HGB) 7.1 gram/dL 11.5-15.5 L HEMATOCRIT (test code = HCT) 23.2 % 36.0-46.0 L MEAN CELL VOLUME (test code = MCV) 76.6 fL 80-98 L MEAN CELL HGB (test code = MCH) 23.4 picogram 27.0-33.0 L MEAN CELL HGB CONCETRATION (test code = MCHC) 30.6 gram/dL 33.0-36. 0 L RED CELL DISTRIBUTION WIDTH (test code = RDW) 18.4 % 11.6-16. 2 H RED CELL DISTRIBUTION WIDTH SD (test code = RDW-SD) 49.6 fL 37 .0-51.0 N PLATELET COUNT (test code = PLT) 173 K/mm3 150-450 N MEAN PLATELET VOLUME (test code = MPV) 13.7 fL 6.7-11.0 H IMMATURE GRANULOCYTE % (test code = IG%) 2.5 % 0.0-5.0 N NUCLEATED RBC % (test code = NRBC%) 0.2 % 0-0 H NEUTROPHIL # (test code = NT#) 22.76 K/mm3 1.8-7.7 H IMMATURE GRANULOCYTE # (test code = IG#) 0.65 x10 3/uL 0-0.03 H LYMPHOCYTE # (test code = LY#) 1.11 K/mm3 1.0-5.0 N MONOCYTE # (test code = MO#) 1.02 K/mm3 0-0.8 H EOSINOPHIL # (test code = EO#) 0.00 K/mm3 0.0-0.5 N BASOPHIL # (test code = BA#) 0.03 K/mm3 0.0-0.2 N NUCLEATED RBC # (test code = NRBC#) 0.06 K/mm3 0.0-0.1 N MANUAL DIFF REQUIRED (test code = MDIFF) YES STAIN ACCEPTABILITY (test code = STN ACCEPTABLE) TOTAL CELLS COUNTED (test code = TCC) #CELLS SEGMENTED NEUTROPHILS (test code = SEG) % 39-69 LYMPHOCYTE (test code = LYMPH) % 25-55 MONOCYTE (test code = MON) % 0-10 MORPHOLOGY COMMENT (test code = MOC) PLATELET ESTIMATE (test code = PLTEST) PLATELET MORPHOLOGY (test code = PLTMORPH) CBC W/MANUAL [id number] 05:20:00* Test Item Value Reference Range Interpretation Comments WHITE BLOOD CELL (test code = WBC) 25.6 K/mm3 4.5-12.5 H RED BLOOD CELL (test code = RBC) 3.03 mill/mm3 3.7-5.2 L HEMOGLOBIN (test code = HGB) 7.1 gram/dL 11.5-15.5 L HEMATOCRIT (test code = HCT) 23.2 % 36.0-46.0 L MEAN CELL VOLUME (test code = MCV) 76.6 fL 80-98 L MEAN CELL HGB (test code = MCH) 23.4 picogram 27.0-33.0 L MEAN CELL HGB CONCETRATION (test code = MCHC) 30.6 gram/dL 33.0-36. 0 L RED CELL DISTRIBUTION WIDTH (test code = RDW) 18.4 % 11.6-16. 2 H RED CELL DISTRIBUTION WIDTH SD (test code = RDW-SD) 49.6 fL 37 .0-51.0 N PLATELET COUNT (test code = PLT) 173 K/mm3 150-450 N MEAN PLATELET VOLUME (test code = MPV) 13.7 fL 6.7-11.0 H IMMATURE GRANULOCYTE % (test code = IG%) 2.5 % 0.0-5.0 N NUCLEATED RBC % (test code = NRBC%) 0.2 % 0-0 H NEUTROPHIL # (test code = NT#) 22.76 K/mm3 1.8-7.7 H IMMATURE GRANULOCYTE # (test code = IG#) 0.65 x10 3/uL 0-0.03 H LYMPHOCYTE # (test code = LY#) 1.11 K/mm3 1.0-5.0 N MONOCYTE # (test code = MO#) 1.02 K/mm3 0-0.8 H EOSINOPHIL # (test code = EO#) 0.00 K/mm3 0.0-0.5 N BASOPHIL # (test code = BA#) 0.03 K/mm3 0.0-0.2 N NUCLEATED RBC # (test code = NRBC#) 0.06 K/mm3 0.0-0.1 N MANUAL DIFF REQUIRED (test code = MDIFF) YES STAIN ACCEPTABILITY (test code = STN ACCEPTABLE) TOTAL CELLS COUNTED (test code = TCC) #CELLS SEGMENTED NEUTROPHILS (test code = SEG) % 39-69 LYMPHOCYTE (test code = LYMPH) % 25-55 MONOCYTE (test code = MON) % 0-10 EOSINOPHIL (test code = EOS) % 0.0-5.0 CABOT RINGS (test code = CAB) MORPHOLOGY COMMENT (test code = MOC) PLATELET ESTIMATE (test code = PLTEST) PLATELET MORPHOLOGY (test code = PLTMORPH) BODY FLUID CELL [id number] 14:45:00* Test Item Value Reference Range Interpretation Comments FLUID SOURCE (test code = SOURCEFL) LEFT PERINEPHRIC ABSCESS DRAINAGE FLUID COLOR (test code = COLFL) RED COLORLESS FLUID APPEARANCE (test code = APPFL) CLOUDY FLUID WBC AUTO (test code = WBCFLA) 13701 cells/uL FLUID RBC AUTO (test code = RBCFLA) 0194301 cells/uL FLUID TOTAL CELLS (test code = TCFL) 60265 cells/uL >0 Fluid WBC RBC Type cells/uL cells/uL CSF (0-5) n/a Peritoneal n/a n/a Pleural n/a n/a Synovial <200 n/a CSF (0-30) n/a FLUID COMMENT (test code = COMFL) PATHOLOGST.TO REVIEW TOTAL CELLS COUNTED ON DIFF (test code = TOTCELLFL) cells DEGENERATIVE CELLS, UNABLE TO DEIFFERENTIATE REVIEWED BY (test code = REVIEW) PATHOLOGIST Reviewed by Dr Janna AmbrocioATING WHITE BLOOD CELLSAPPEAR TO BE MOSTLY POLYS SPECIMEN COMMENTS: LEFT PERINEPHRIC ABSCESS DRAINAGESPECIMEN COMMENTS: LEFT HALIE NEPHRIC ABSCESS DRAINAGE.FLUID CREATININE [id number] 14:45:00* Test Item Value Reference Range Interpretation Comments FLUID CREATININE (test code = CREATF) 1.3 SPECIMEN COMMENTS: LEFT PERINEPHRIC ABSCESS DRAINAGESPECIMEN COMMENTS: LEFT HALIE NEPHRIC ABSCESS DRAINAGE.LACTIC [id number] 14:37:00* Test Item Value Reference Range Interpretation Comments LACTIC ACID (test code = LACT) 2.3 mmol/L 0.4-1.9 Results called to [id number] by [facility] 09/24/18 1437Critical results verified and read back by Nurse? Y PROCALCITONIN (PCT)2018-09-24 12:10:00* Test Item Value Reference Range Interpretation Comments PROCALCITONIN (PCT) (test code = PROCAL) 61.48 ng/ml Results called to [id number] by [facility] 09/24/18 1210Critical results verified and read back [...] into account the patients history. BASIC METABOLIC [id number] 11:53:00* Test Item Value Reference Range Interpretation Comments SODIUM (test code = NA) 139 mmol/L 136-145 N POTASSIUM (test code = K) 5.5 mmol/L 3.5-5.1 H CHLORIDE (test code = CL) 107.0 mmol/L 98-107 N CARBON DIOXIDE (test code = CO2) 19.0 mmol/L 21-32 L ANION GAP (test code = GAP) 18.5 10-20 N GLUCOSE (test code = GLU) 177 mg/dL 74-106 H BLOOD UREA NITROGEN (test code = BUN) 77 mg/dL 7-18 H GLOMERULAR FILTRATION RATE (test code = GFR) 15 mL/min >=60 Estimated GFR by using Modified MDRD formula.Chronic kidney disease is defined as either kidney damageor GFR <60 mL/min/1.73 m2 for >3 months. CREATININE (test code = CREAT) 3.20 mg/dL 0.55-1.02 H Note change in reference range due to change in reagent. BUN/CREATININE RATIO (test code = BUN/CREA) 24.1 10-20 H CALCIUM (test code = CA) 8.9 mg/dL 8.5-10.1 N CBC W/AUTO [id number] 11:45:00* Test Item Value Reference Range Interpretation Comments WHITE BLOOD CELL (test code = WBC) 18.0 K/mm3 4.5-12.5 H RED BLOOD CELL (test code = RBC) 3.16 mill/mm3 3.7-5.2 L HEMOGLOBIN (test code = HGB) 7.4 gram/dL 11.5-15.5 L HEMATOCRIT (test code = HCT) 24.8 % 36.0-46.0 L MEAN CELL VOLUME (test code = MCV) 78.5 fL 80-98 L MEAN CELL HGB (test code = MCH) 23.4 picogram 27.0-33.0 L MEAN CELL HGB CONCETRATION (test code = MCHC) 29.8 gram/dL 33.0-36. 0 L RED CELL DISTRIBUTION WIDTH (test code = RDW) 18.2 % 11.6-16. 2 H RED CELL DISTRIBUTION WIDTH SD (test code = RDW-SD) 51.2 fL 37 .0-51.0 H PLATELET COUNT (test code = PLT) 165 K/mm3 150-450 N MEAN PLATELET VOLUME (test code = MPV) 12.5 fL 6.7-11.0 H NEUTROPHIL % (test code = NT%) 90.4 % 39.0-69.0 H IMMATURE GRANULOCYTE % (test code = IG%) 1.2 % 0.0-5.0 N LYMPHOCYTE % (test code = LY%) 4.0 % 25.0-55.0 L MONOCYTE % (test code = MO%) 4.3 % 0.0-10.0 N EOSINOPHIL % (test code = EO%) 0.0 % 0.0-5.0 N BASOPHIL % (test code = BA%) 0.1 % 0.0-1.0 N NUCLEATED RBC % (test code = NRBC%) 0.1 % 0-0 H NEUTROPHIL # (test code = NT#) 16.24 K/mm3 1.8-7.7 H IMMATURE GRANULOCYTE # (test code = IG#) 0.22 x10 3/uL 0-0.03 H LYMPHOCYTE # (test code = LY#) 0.72 K/mm3 1.0-5.0 L MONOCYTE # (test code = MO#) 0.78 K/mm3 0-0.8 N EOSINOPHIL # (test code = EO#) 0.00 K/mm3 0.0-0.5 N BASOPHIL # (test code = BA#) 0.02 K/mm3 0.0-0.2 N NUCLEATED RBC # (test code = NRBC#) 0.02 K/mm3 0.0-0.1 N MANUAL DIFF REQUIRED (test code = MDIFF) NO LACTIC [id number] 11:29:00* Test Item Value Reference Range Interpretation Comments LACTIC ACID (test code = LACT) 2.3 mmol/L 0.4-1.9 HH Results called to [id number] by [facility] 09/24/18 1129Critical results verified and read back by Nurse? Y LACTIC [id number] 08:36:00* Test Item Value Reference Range Interpretation Comments LACTIC ACID (test code = LACT) 2.2 mmol/L 0.4-1.9 HH Results called to [id number] by [facility] 09/24/18 0836Critical results verified and read back by Nurse? Y LACTIC [id number] 04:48:00* Test Item Value Reference Range Interpretation Comments LACTIC ACID (test code = LACT) 2.2 mmol/L 0.4-1.9 HH Results called to [id number] by [facility] 09/24/18 0447Critical results verified and read back by Nurse? Y LACTIC [id number] 00:59:00* Test Item Value Reference Range Interpretation Comments LACTIC ACID (test code = LACT) 2.5 mmol/L 0.4-1.9 HH Results called to [id number] by [facility] 09/24/18 0059Critical results verified and read back by Nurse? Y LACTIC [id number] 21:22:00* Test Item Value Reference Range Interpretation Comments LACTIC ACID (test code = LACT) 2.9 mmol/L 0.4-1.9 HH Results called to [id number] by V.LAB. 09/23/18 2122Critical results verified and read back by Nurse? Y LACTIC [id number] 19:15:00* Test Item Value Reference Range Interpretation Comments LACTIC ACID (test code = LACT) 3.5 mmol/L 0.4-1.9 HH Results called to [id number] by V.LAB. 09/23/18 1915Critical results verified and read back by Nurse? Adrianna BRUMFIELD [id number] 10:41:00 Name: SIOBHAN BARBOSA [facility] [place] : 1965 Age/S: 53 / F [address] [facility] Unit #: [id number] Loc: [place] [address] Phys: Charito Leroy MD Acct: [id number] Dis Date: Status: ADM IN PHONE #: [phone] Exam Date: 09/22/2018 1625 FAX #: [phone] Reason: EXAMS: CPT CODE: [id number] DRN VISCERA PERC [id number] Fluoro Time: 72 DAP (Gy m2): 96069 Air Kerma (mGy): 41.76 EXAM: Percutaneous drainage [...] needle was then replaced with a 12 [place] pigtail drainage catheter. 900 mL of pus [...] point to perform left percutaneous nephrostomy. Fluoroscopy Time : 72 sec CAK : 41.7 mGy DAP : 81858 mGy sq cm Electronically Signed by Michelet Alvarez o n 09/23/2018 at 1041 Reported and signed by: Jameel Alvarez M.D. CC: Charito Leroy MD Technologist: Todd Abdullahi [facility] [place] Date/Time: 09/23/2018 (0874) Leodan Orig Print D/T : S: 09/23/2018 (5418) PAGE 1 Signed Report CBC W/MANUAL [id number] 07:17:00* Test Item Value Reference Range Interpretation Comments WHITE BLOOD CELL (test code = WBC) 13.5 K/mm3 4.5-12.5 H RED BLOOD CELL (test code = RBC) 3.06 mill/mm3 3.7-5.2 L HEMOGLOBIN (test code = HGB) 7.2 gram/dL 11.5-15.5 L HEMATOCRIT (test code = HCT) 25.0 % 36.0-46.0 L MEAN CELL VOLUME (test code = MCV) 81.7 fL 80-98 N MEAN CELL HGB (test code = MCH) 23.5 picogram 27.0-33.0 L MEAN CELL HGB CONCETRATION (test code = MCHC) 28.8 gram/dL 33.0-36. 0 L RED CELL DISTRIBUTION WIDTH (test code = RDW) 18.1 % 11.6-16. 2 H RED CELL DISTRIBUTION WIDTH SD (test code = RDW-SD) 53.9 fL 37 .0-51.0 H PLATELET COUNT (test code = PLT) 158 K/mm3 150-450 MEAN PLATELET VOLUME (test code = MPV) 13.7 fL 6.7-11.0 H IMMATURE GRANULOCYTE % (test code = IG%) 0.5 % 0.0-5.0 N NUCLEATED RBC % (test code = NRBC%) 0.0 % 0-0 N NEUTROPHIL # (test code = NT#) 12.24 K/mm3 1.8-7.7 H IMMATURE GRANULOCYTE # (test code = IG#) 0.07 x10 3/uL 0-0.03 H LYMPHOCYTE # (test code = LY#) 0.59 K/mm3 1.0-5.0 L MONOCYTE # (test code = MO#) 0.54 K/mm3 0-0.8 N EOSINOPHIL # (test code = EO#) 0.00 K/mm3 0.0-0.5 N BASOPHIL # (test code = BA#) 0.01 K/mm3 0.0-0.2 N NUCLEATED RBC # (test code = NRBC#) 0.00 K/mm3 0.0-0.1 N MANUAL DIFF REQUIRED (test code = MDIFF) YES STAIN ACCEPTABILITY (test code = STN ACCEPTABLE) STAIN ACCEPTABLE TOTAL CELLS COUNTED (test code = TCC) 115 #CELLS SEGMENTED NEUTROPHILS (test code = SEG) 73.9 % 39-69 H BAND NEUTROPHIL (test code = BAND) 22.6 % 0-10 H LYMPHOCYTE (test code = LYMPH) 1.8 % 25-55 L REACTIVE LYMPH (test code = RELYMPH) 0 % MONOCYTE (test code = MON) 1.7 % 0-10 N EOSINOPHIL (test code = EOS) 0 % 0.0-5.0 N BASOPHIL (test code = BASO) 0 % 0-1.0 N METAMYELOCYTE (test code = META) 0 % 0-0 N MYELOCYTE (test code = MYELO) 0 % 0.0-0.0 N PROMYELOCYTE (test code = PROM) 0 % 0-0 N POLYCHROMASIA (test code = POLC) 2+ HYPOCHROMIA (test code = HYPO) 2+ ANISOCYTOSIS (test code = ANISO) 1+ ELLIPTOCYTES (test code = ELL) 1+ TOXIC GRANULATION (test code = TOX) 1+ PLATELET ESTIMATE (test code = PLTEST) ADEQUATE PLATELET MORPHOLOGY (test code = PLTMORPH) NORMAL IMMATURE FORMS (test code = IMMAT) 0 % CBC W/MANUAL [id number] 06:22:00* Test Item Value Reference Range Interpretation Comments WHITE BLOOD CELL (test code = WBC) 13.5 K/mm3 4.5-12.5 H RED BLOOD CELL (test code = RBC) 3.06 mill/mm3 3.7-5.2 L HEMOGLOBIN (test code = HGB) 7.2 gram/dL 11.5-15.5 L HEMATOCRIT (test code = HCT) 25.0 % 36.0-46.0 L MEAN CELL VOLUME (test code = MCV) 81.7 fL 80-98 N MEAN CELL HGB (test code = MCH) 23.5 picogram 27.0-33.0 L MEAN CELL HGB CONCETRATION (test code = MCHC) 28.8 gram/dL 33.0-36. 0 L RED CELL DISTRIBUTION WIDTH (test code = RDW) 18.1 % 11.6-16. 2 H RED CELL DISTRIBUTION WIDTH SD (test code = RDW-SD) 53.9 fL 37 .0-51.0 H PLATELET COUNT (test code = PLT) 158 K/mm3 150-450 MEAN PLATELET VOLUME (test code = MPV) 13.7 fL 6.7-11.0 H IMMATURE GRANULOCYTE % (test code = IG%) 0.5 % 0.0-5.0 N NUCLEATED RBC % (test code = NRBC%) 0.0 % 0-0 N NEUTROPHIL # (test code = NT#) 12.24 K/mm3 1.8-7.7 H IMMATURE GRANULOCYTE # (test code = IG#) 0.07 x10 3/uL 0-0.03 H LYMPHOCYTE # (test code = LY#) 0.59 K/mm3 1.0-5.0 L MONOCYTE # (test code = MO#) 0.54 K/mm3 0-0.8 N EOSINOPHIL # (test code = EO#) 0.00 K/mm3 0.0-0.5 N BASOPHIL # (test code = BA#) 0.01 K/mm3 0.0-0.2 N NUCLEATED RBC # (test code = NRBC#) 0.00 K/mm3 0.0-0.1 N MANUAL DIFF REQUIRED (test code = MDIFF) YES STAIN ACCEPTABILITY (test code = STN ACCEPTABLE) TOTAL CELLS COUNTED (test code = TCC) #CELLS SEGMENTED NEUTROPHILS (test code = SEG) % 39-69 LYMPHOCYTE (test code = LYMPH) % 25-55 MONOCYTE (test code = MON) % 0-10 EOSINOPHIL (test code = EOS) % 0.0-5.0 CABOT RINGS (test code = CAB) MORPHOLOGY COMMENT (test code = MOC) PLATELET ESTIMATE (test code = PLTEST) PLATELET MORPHOLOGY (test code = PLTMORPH) CBC W/MANUAL [id number] 06:22:00* Test Item Value Reference Range Interpretation Comments WHITE BLOOD CELL (test code = WBC) 13.5 K/mm3 4.5-12.5 H RED BLOOD CELL (test code = RBC) 3.06 mill/mm3 3.7-5.2 L HEMOGLOBIN (test code = HGB) 7.2 gram/dL 11.5-15.5 L HEMATOCRIT (test code = HCT) 25.0 % 36.0-46.0 L MEAN CELL VOLUME (test code = MCV) 81.7 fL 80-98 N MEAN CELL HGB (test code = MCH) 23.5 picogram 27.0-33.0 L MEAN CELL HGB CONCETRATION (test code = MCHC) 28.8 gram/dL 33.0-36. 0 L RED CELL DISTRIBUTION WIDTH (test code = RDW) 18.1 % 11.6-16. 2 H RED CELL DISTRIBUTION WIDTH SD (test code = RDW-SD) 53.9 fL 37 .0-51.0 H PLATELET COUNT (test code = PLT) 158 K/mm3 150-450 MEAN PLATELET VOLUME (test code = MPV) 13.7 fL 6.7-11.0 H IMMATURE GRANULOCYTE % (test code = IG%) 0.5 % 0.0-5.0 N NUCLEATED RBC % (test code = NRBC%) 0.0 % 0-0 N NEUTROPHIL # (test code = NT#) 12.24 K/mm3 1.8-7.7 H IMMATURE GRANULOCYTE # (test code = IG#) 0.07 x10 3/uL 0-0.03 H LYMPHOCYTE # (test code = LY#) 0.59 K/mm3 1.0-5.0 L MONOCYTE # (test code = MO#) 0.54 K/mm3 0-0.8 N EOSINOPHIL # (test code = EO#) 0.00 K/mm3 0.0-0.5 N BASOPHIL # (test code = BA#) 0.01 K/mm3 0.0-0.2 N NUCLEATED RBC # (test code = NRBC#) 0.00 K/mm3 0.0-0.1 N MANUAL DIFF REQUIRED (test code = MDIFF) YES STAIN ACCEPTABILITY (test code = STN ACCEPTABLE) TOTAL CELLS COUNTED (test code = TCC) #CELLS SEGMENTED NEUTROPHILS (test code = SEG) % 39-69 LYMPHOCYTE (test code = LYMPH) % 25-55 MONOCYTE (test code = MON) % 0-10 EOSINOPHIL (test code = EOS) % 0.0-5.0 CABOT RINGS (test code = CAB) MORPHOLOGY COMMENT (test code = MOC) PLATELET ESTIMATE (test code = PLTEST) PLATELET MORPHOLOGY (test code = PLTMORPH) CBC W/MANUAL [id number] 06:22:00* Test Item Value Reference Range Interpretation Comments WHITE BLOOD CELL (test code = WBC) 13.5 K/mm3 4.5-12.5 H RED BLOOD CELL (test code = RBC) 3.06 mill/mm3 3.7-5.2 L HEMOGLOBIN (test code = HGB) 7.2 gram/dL 11.5-15.5 L HEMATOCRIT (test code = HCT) 25.0 % 36.0-46.0 L MEAN CELL VOLUME (test code = MCV) 81.7 fL 80-98 N MEAN CELL HGB (test code = MCH) 23.5 picogram 27.0-33.0 L MEAN CELL HGB CONCETRATION (test code = MCHC) 28.8 gram/dL 33.0-36. 0 L RED CELL DISTRIBUTION WIDTH (test code = RDW) 18.1 % 11.6-16. 2 H RED CELL DISTRIBUTION WIDTH SD (test code = RDW-SD) 53.9 fL 37 .0-51.0 H PLATELET COUNT (test code = PLT) 158 K/mm3 150-450 MEAN PLATELET VOLUME (test code = MPV) 13.7 fL 6.7-11.0 H IMMATURE GRANULOCYTE % (test code = IG%) 0.5 % 0.0-5.0 N NUCLEATED RBC % (test code = NRBC%) 0.0 % 0-0 N NEUTROPHIL # (test code = NT#) 12.24 K/mm3 1.8-7.7 H IMMATURE GRANULOCYTE # (test code = IG#) 0.07 x10 3/uL 0-0.03 H LYMPHOCYTE # (test code = LY#) 0.59 K/mm3 1.0-5.0 L MONOCYTE # (test code = MO#) 0.54 K/mm3 0-0.8 N EOSINOPHIL # (test code = EO#) 0.00 K/mm3 0.0-0.5 N BASOPHIL # (test code = BA#) 0.01 K/mm3 0.0-0.2 N NUCLEATED RBC # (test code = NRBC#) 0.00 K/mm3 0.0-0.1 N MANUAL DIFF REQUIRED (test code = MDIFF) YES STAIN ACCEPTABILITY (test code = STN ACCEPTABLE) TOTAL CELLS COUNTED (test code = TCC) #CELLS SEGMENTED NEUTROPHILS (test code = SEG) % 39-69 LYMPHOCYTE (test code = LYMPH) % 25-55 MONOCYTE (test code = MON) % 0-10 EOSINOPHIL (test code = EOS) % 0.0-5.0 MORPHOLOGY COMMENT (test code = MOC) PLATELET ESTIMATE (test code = PLTEST) PLATELET MORPHOLOGY (test code = PLTMORPH) CBC W/MANUAL [id number] 06:22:00* Test Item Value Reference Range Interpretation Comments WHITE BLOOD CELL (test code = WBC) 13.5 K/mm3 4.5-12.5 H RED BLOOD CELL (test code = RBC) 3.06 mill/mm3 3.7-5.2 L HEMOGLOBIN (test code = HGB) 7.2 gram/dL 11.5-15.5 L HEMATOCRIT (test code = HCT) 25.0 % 36.0-46.0 L MEAN CELL VOLUME (test code = MCV) 81.7 fL 80-98 N MEAN CELL HGB (test code = MCH) 23.5 picogram 27.0-33.0 L MEAN CELL HGB CONCETRATION (test code = MCHC) 28.8 gram/dL 33.0-36. 0 L RED CELL DISTRIBUTION WIDTH (test code = RDW) 18.1 % 11.6-16. 2 H RED CELL DISTRIBUTION WIDTH SD (test code = RDW-SD) 53.9 fL 37 .0-51.0 H PLATELET COUNT (test code = PLT) 158 K/mm3 150-450 MEAN PLATELET VOLUME (test code = MPV) 13.7 fL 6.7-11.0 H IMMATURE GRANULOCYTE % (test code = IG%) 0.5 % 0.0-5.0 N NUCLEATED RBC % (test code = NRBC%) 0.0 % 0-0 N NEUTROPHIL # (test code = NT#) 12.24 K/mm3 1.8-7.7 H IMMATURE GRANULOCYTE # (test code = IG#) 0.07 x10 3/uL 0-0.03 H LYMPHOCYTE # (test code = LY#) 0.59 K/mm3 1.0-5.0 L MONOCYTE # (test code = MO#) 0.54 K/mm3 0-0.8 N EOSINOPHIL # (test code = EO#) 0.00 K/mm3 0.0-0.5 N BASOPHIL # (test code = BA#) 0.01 K/mm3 0.0-0.2 N NUCLEATED RBC # (test code = NRBC#) 0.00 K/mm3 0.0-0.1 N MANUAL DIFF REQUIRED (test code = MDIFF) YES STAIN ACCEPTABILITY (test code = STN ACCEPTABLE) TOTAL CELLS COUNTED (test code = TCC) #CELLS SEGMENTED NEUTROPHILS (test code = SEG) % 39-69 LYMPHOCYTE (test code = LYMPH) % 25-55 MONOCYTE (test code = MON) % 0-10 MORPHOLOGY COMMENT (test code = MOC) PLATELET ESTIMATE (test code = PLTEST) PLATELET MORPHOLOGY (test code = PLTMORPH) CBC W/MANUAL [id number] 06:22:00* Test Item Value Reference Range Interpretation Comments WHITE BLOOD CELL (test code = WBC) 13.5 K/mm3 4.5-12.5 H RED BLOOD CELL (test code = RBC) 3.06 mill/mm3 3.7-5.2 L HEMOGLOBIN (test code = HGB) 7.2 gram/dL 11.5-15.5 L HEMATOCRIT (test code = HCT) 25.0 % 36.0-46.0 L MEAN CELL VOLUME (test code = MCV) 81.7 fL 80-98 N MEAN CELL HGB (test code = MCH) 23.5 picogram 27.0-33.0 L MEAN CELL HGB CONCETRATION (test code = MCHC) 28.8 gram/dL 33.0-36. 0 L RED CELL DISTRIBUTION WIDTH (test code = RDW) 18.1 % 11.6-16. 2 H RED CELL DISTRIBUTION WIDTH SD (test code = RDW-SD) 53.9 fL 37 .0-51.0 H PLATELET COUNT (test code = PLT) 158 K/mm3 150-450 MEAN PLATELET VOLUME (test code = MPV) 13.7 fL 6.7-11.0 H IMMATURE GRANULOCYTE % (test code = IG%) 0.5 % 0.0-5.0 N NUCLEATED RBC % (test code = NRBC%) 0.0 % 0-0 N NEUTROPHIL # (test code = NT#) 12.24 K/mm3 1.8-7.7 H IMMATURE GRANULOCYTE # (test code = IG#) 0.07 x10 3/uL 0-0.03 H LYMPHOCYTE # (test code = LY#) 0.59 K/mm3 1.0-5.0 L MONOCYTE # (test code = MO#) 0.54 K/mm3 0-0.8 N EOSINOPHIL # (test code = EO#) 0.00 K/mm3 0.0-0.5 N BASOPHIL # (test code = BA#) 0.01 K/mm3 0.0-0.2 N NUCLEATED RBC # (test code = NRBC#) 0.00 K/mm3 0.0-0.1 N MANUAL DIFF REQUIRED (test code = MDIFF) YES STAIN ACCEPTABILITY (test code = STN ACCEPTABLE) TOTAL CELLS COUNTED (test code = TCC) #CELLS SEGMENTED NEUTROPHILS (test code = SEG) % 39-69 LYMPHOCYTE (test code = LYMPH) % 25-55 MONOCYTE (test code = MON) % 0-10 EOSINOPHIL (test code = EOS) % 0.0-5.0 CABOT RINGS (test code = CAB) MORPHOLOGY COMMENT (test code = MOC) PLATELET ESTIMATE (test code = PLTEST) PLATELET MORPHOLOGY (test code = PLTMORPH) BASIC METABOLIC [id number] 05:34:00* Test Item Value Reference Range Interpretation Comments SODIUM (test code = NA) 140 mmol/L 136-145 N POTASSIUM (test code = K) 5.6 mmol/L 3.5-5.1 H CHLORIDE (test code = CL) 110.0 mmol/L 98-107 H CARBON DIOXIDE (test code = CO2) 13.0 mmol/L 21-32 L ANION GAP (test code = GAP) 22.6 10-20 H GLUCOSE (test code = GLU) 106 mg/dL 74-106 N BLOOD UREA NITROGEN (test code = BUN) 51 mg/dL 7-18 H RESULT VERIFIED BY REPEAT ANALYSIS GLOMERULAR FILTRATION RATE (test code = GFR) 19 mL/min >=60 Estimated GFR by using Modified MDRD formula.Chronic kidney disease is defined as either kidney damageor GFR <60 mL/min/1.73 m2 for >3 months. CREATININE (test code = CREAT) 2.60 mg/dL 0.55-1.02 H Note change in reference range due to change in reagent. BUN/CREATININE RATIO (test code = BUN/CREA) 19.6 10-20 N CALCIUM (test code = CA) 8.7 mg/dL 8.5-10.1 N BASIC METABOLIC [id number] 05:10:00* Test Item Value Reference Range Interpretation Comments SODIUM (test code = NA) 140 mmol/L 136-145 N POTASSIUM (test code = K) 5.6 mmol/L 3.5-5.1 H CHLORIDE (test code = CL) 110.0 mmol/L 98-107 H CARBON DIOXIDE (test code = CO2) mmol/L 21-32 ANION GAP (test code = GAP) 10-20 GLUCOSE (test code = GLU) mg/dL 74-106 BLOOD UREA NITROGEN (test code = BUN) mg/dL 7-18 GLOMERULAR FILTRATION RATE (test code = GFR) mL/min >=60 CREATININE (test code = CREAT) mg/dL 0.55-1.02 BUN/CREATININE RATIO (test code = BUN/CREA) 10-20 CALCIUM (test code = CA) mg/dL 8.5-10.[id number] 22:35:00* Test Item Value Reference Range Interpretation Comments FLUID SOURCE (test code = SOURCEFL) LEFT PERINEPHRIC ABSCESS DRAINAGE FLUID COLOR (test code = COLFL) RED COLORLESS FLUID APPEARANCE (test code = APPFL) CLOUDY FLUID WBC AUTO (test code = WBCFLA) 19329 cells/uL FLUID RBC AUTO (test code = RBCFLA) 6191547 cells/uL FLUID TOTAL CELLS (test code = TCFL) 56499 cells/uL >0 Fluid WBC RBC Type cells/uL cells/uL CSF (0-5) n/a Peritoneal n/a n/a Pleural n/a n/a Synovial <200 n/a CSF (0-30) n/a FLUID COMMENT (test code = COMFL) PATHOLOGST.TO REVIEW TOTAL CELLS COUNTED ON DIFF (test code = TOTCELLFL) cells DEGENERATIVE CELLS, UNABLE TO DEIFFERENTIATE REVIEWED BY (test code = REVIEW) PATHOLOGIST SPECIMEN COMMENTS: LEFT PERINEPHRIC ABSCESS DRAINAGESPECIMEN COMMENTS: LEFT HALIE NEPHRIC ABSCESS DRAINAGE.FLUID CREATININE [id number] 22:35:00* Test Item Value Reference Range Interpretation Comments FLUID CREATININE (test code = CREATF) 1.3 SPECIMEN COMMENTS: LEFT PERINEPHRIC ABSCESS DRAINAGESPECIMEN COMMENTS: LEFT HALIE NEPHRIC ABSCESS DRAINAGE.BODY FLUID CELL [id number] 20:27:00* Test Item Value Reference Range Interpretation Comments FLUID SOURCE (test code = SOURCEFL) FLUID COLOR (test code = COLFL) COLORLESS FLUID APPEARANCE (test code = APPFL) FLUID WBC (test code = WBCFL) per mm3 0-150 FLUID WBC AUTO (test code = WBCFLA) 28747 cells/uL FLUID RBC (test code = RBCFL) per mm3 0-50 FLUID RBC AUTO (test code = RBCFLA) 2558465 cells/uL FLUID TOTAL CELLS (test code = TCFL) 83155 cells/uL >0 Fluid WBC RBC Type cells/uL cells/uL CSF (0-5) n/a Peritoneal n/a n/a Pleural n/a n/a Synovial <200 n/a CSF (0-30) n/a TOTAL CELLS COUNTED ON DIFF (test code = TOTCELLFL) cells REVIEWED BY (test code = REVIEW) PATHOLOGIST SPECIMEN COMMENTS: LEFT PERINEPHRIC ABSCESS DRAINAGESPECIMEN COMMENTS: LEFT HALIE NEPHRIC ABSCESS DRAINAGE.FLUID CREATININE [id number] 20:27:00* Test Item Value Reference Range Interpretation Comments FLUID CREATININE (test code = CREATF) 1.3 SOURCE (test code = SOURCE) . SPECIMEN COMMENTS: LEFT PERINEPHRIC ABSCESS DRAINAGESPECIMEN COMMENTS: LEFT HALIE NEPHRIC ABSCESS DRAINAGE.- XR CHEST 1 [id number] 19:58:00 FAX: Charito Lowe MD [phone] [place]: St: ADM Name: SIOBHAN ROBERTS [facility] : [birth year] 63 Age/S: 53/F [address] [facility] Unit #: [id number] Loc: [id number].[address] [place] [address] Phys: Charito Leroy MD Acct: [id number] Dis Date: Status: ADM IN PHONE #: [phone] Exam Date: 09/22/20181939 FAX #: [phone] Reason: COUGHING UP PHELGM EXAMS: CPT CODE: [id number] XR CHEST 1 V [id number] REASON FOR EXAM: COUGHING UP PHELGM EXAM ORDER DATE: 09/22/2018 12:00 AM Harsh monsalve M.D.: Charito Leroy MD PROCEDURE: - XR CHEST 1 V COMPARISON: 07/13/2018 FINDINGS: Portable AP frontal view of th e chest obtained at 7:25 PM shows clear lungs without evidence of consolid ation. There is no evidence of effusion. The heart size is within normal l imits. Pulmonary vasculatures are unremarkable. IMPRESSIO N: No active disease. Electronically Signed by Michelet Reyez on 09/22 at 1957 Reported and signed by: Jewel Reyez M.D. CC: Charito Leroy MD chnologist: EVITA HALE; Venkatesh Blankenship, RT(R Trnscrd Date/ Time/By: 09/22/2018 (1957) : By: MengVTL Orig Print D/T: S: 09/23/19 (2000) PAGE 1 Signed Report BODY FLUID CELL [id number] 18:22:00* Test Item Value Reference Range Interpretation Comments FLUID SOURCE (test code = SOURCEFL) FLUID COLOR (test code = COLFL) COLORLESS FLUID APPEARANCE (test code = APPFL) FLUID WBC (test code = WBCFL) per mm3 0-150 FLUID WBC AUTO (test code = WBCFLA) 65365 cells/uL FLUID RBC (test code = RBCFL) per mm3 0-50 FLUID RBC AUTO (test code = RBCFLA) 8586421 cells/uL FLUID TOTAL CELLS (test code = TCFL) 09982 cells/uL >0 Fluid WBC RBC Type cells/uL cells/uL CSF (0-5) n/a Peritoneal n/a n/a Pleural n/a n/a Synovial <200 n/a CSF (0-30) n/a TOTAL CELLS COUNTED ON DIFF (test code = TOTCELLFL) cells REVIEWED BY (test code = REVIEW) PATHOLOGIST SPECIMEN COMMENTS: LEFT PERINEPHRIC ABSCESS DRAINAGESPECIMEN COMMENTS: LEFT HALIE NEPHRIC ABSCESS DRAINAGE.FLUID CREATININE [id number] 18:22:00* Test Item Value Reference Range Interpretation Comments FLUID CREATININE (test code = CREATF) SOURCE (test code = SOURCE) SPECIMEN COMMENTS: LEFT PERINEPHRIC ABSCESS DRAINAGESPECIMEN COMMENTS: LEFT HALIE NEPHRIC ABSCESS DRAINAGE.CBC W/MANUAL [id number] 11:44:00* Test Item Value Reference Range Interpretation Comments WHITE BLOOD CELL (test code = WBC) 7.4 K/mm3 4.5-12.5 N RED BLOOD CELL (test code = RBC) 3.04 mill/mm3 3.7-5.2 L HEMOGLOBIN (test code = HGB) 7.2 gram/dL 11.5-15.5 L HEMATOCRIT (test code = HCT) 24.7 % 36.0-46.0 L MEAN CELL VOLUME (test code = MCV) 81.3 fL 80-98 N MEAN CELL HGB (test code = MCH) 23.7 picogram 27.0-33.0 L MEAN CELL HGB CONCETRATION (test code = MCHC) 29.1 gram/dL 33.0-36. 0 L RED CELL DISTRIBUTION WIDTH (test code = RDW) 17.8 % 11.6-16. 2 H RED CELL DISTRIBUTION WIDTH SD (test code = RDW-SD) 52.8 fL 37 .0-51.0 H PLATELET COUNT (test code = PLT) 110 K/mm3 150-450 L MEAN PLATELET VOLUME (test code = MPV) 12.2 fL 6.7-11.0 H IMMATURE GRANULOCYTE % (test code = IG%) 0.4 % 0.0-5.0 N NUCLEATED RBC % (test code = NRBC%) 0.0 % 0-0 N NEUTROPHIL # (test code = NT#) 5.90 K/mm3 1.8-7.7 N IMMATURE GRANULOCYTE # (test code = IG#) 0.03 x10 3/uL 0-0.03 N LYMPHOCYTE # (test code = LY#) 0.94 K/mm3 1.0-5.0 L MONOCYTE # (test code = MO#) 0.50 K/mm3 0-0.8 N EOSINOPHIL # (test code = EO#) 0.01 K/mm3 0.0-0.5 N BASOPHIL # (test code = BA#) 0.01 K/mm3 0.0-0.2 N NUCLEATED RBC # (test code = NRBC#) 0.00 K/mm3 0.0-0.1 N MANUAL DIFF REQUIRED (test code = MDIFF) YES STAIN ACCEPTABILITY (test code = STN ACCEPTABLE) STAIN ACCEPTABLE TOTAL CELLS COUNTED (test code = TCC) 114 #CELLS SEGMENTED NEUTROPHILS (test code = SEG) 83.3 % 39-69 H BAND NEUTROPHIL (test code = BAND) 7.9 % 0-10 N LYMPHOCYTE (test code = LYMPH) 5.3 % 25-55 L REACTIVE LYMPH (test code = RELYMPH) 0 % MONOCYTE (test code = MON) 3.5 % 0-10 N EOSINOPHIL (test code = EOS) 0 % 0.0-5.0 N BASOPHIL (test code = BASO) 0 % 0-1.0 N METAMYELOCYTE (test code = META) 0 % 0-0 N MYELOCYTE (test code = MYELO) 0 % 0.0-0.0 N PROMYELOCYTE (test code = PROM) 0 % 0-0 N POLYCHROMASIA (test code = POLC) 1+ HYPOCHROMIA (test code = HYPO) 2+ ANISOCYTOSIS (test code = ANISO) 2+ MICROCYTOSIS (test code = MICR) 1+ PLATELET ESTIMATE (test code = PLTEST) ADEQUATE PLATELET MORPHOLOGY (test code = PLTMORPH) NORMAL IMMATURE FORMS (test code = IMMAT) 0 % CBC W/MANUAL [id number] 10:20:00* Test Item Value Reference Range Interpretation Comments WHITE BLOOD CELL (test code = WBC) 7.4 K/mm3 4.5-12.5 N RED BLOOD CELL (test code = RBC) 3.04 mill/mm3 3.7-5.2 L HEMOGLOBIN (test code = HGB) 7.2 gram/dL 11.5-15.5 L HEMATOCRIT (test code = HCT) 24.7 % 36.0-46.0 L MEAN CELL VOLUME (test code = MCV) 81.3 fL 80-98 N MEAN CELL HGB (test code = MCH) 23.7 picogram 27.0-33.0 L MEAN CELL HGB CONCETRATION (test code = MCHC) 29.1 gram/dL 33.0-36. 0 L RED CELL DISTRIBUTION WIDTH (test code = RDW) 17.8 % 11.6-16. 2 H RED CELL DISTRIBUTION WIDTH SD (test code = RDW-SD) 52.8 fL 37 .0-51.0 H PLATELET COUNT (test code = PLT) 110 K/mm3 150-450 L MEAN PLATELET VOLUME (test code = MPV) 12.2 fL 6.7-11.0 H IMMATURE GRANULOCYTE % (test code = IG%) 0.4 % 0.0-5.0 N NUCLEATED RBC % (test code = NRBC%) 0.0 % 0-0 N NEUTROPHIL # (test code = NT#) 5.90 K/mm3 1.8-7.7 N IMMATURE GRANULOCYTE # (test code = IG#) 0.03 x10 3/uL 0-0.03 N LYMPHOCYTE # (test code = LY#) 0.94 K/mm3 1.0-5.0 L MONOCYTE # (test code = MO#) 0.50 K/mm3 0-0.8 N EOSINOPHIL # (test code = EO#) 0.01 K/mm3 0.0-0.5 N BASOPHIL # (test code = BA#) 0.01 K/mm3 0.0-0.2 N NUCLEATED RBC # (test code = NRBC#) 0.00 K/mm3 0.0-0.1 N MANUAL DIFF REQUIRED (test code = MDIFF) YES STAIN ACCEPTABILITY (test code = STN ACCEPTABLE) TOTAL CELLS COUNTED (test code = TCC) #CELLS SEGMENTED NEUTROPHILS (test code = SEG) % 39-69 LYMPHOCYTE (test code = LYMPH) % 25-55 MONOCYTE (test code = MON) % 0-10 EOSINOPHIL (test code = EOS) % 0.0-5.0 CABOT RINGS (test code = CAB) MORPHOLOGY COMMENT (test code = MOC) PLATELET ESTIMATE (test code = PLTEST) PLATELET MORPHOLOGY (test code = PLTMORPH) CBC W/MANUAL [id number] 10:20:00* Test Item Value Reference Range Interpretation Comments WHITE BLOOD CELL (test code = WBC) 7.4 K/mm3 4.5-12.5 N RED BLOOD CELL (test code = RBC) 3.04 mill/mm3 3.7-5.2 L HEMOGLOBIN (test code = HGB) 7.2 gram/dL 11.5-15.5 L HEMATOCRIT (test code = HCT) 24.7 % 36.0-46.0 L MEAN CELL VOLUME (test code = MCV) 81.3 fL 80-98 N MEAN CELL HGB (test code = MCH) 23.7 picogram 27.0-33.0 L MEAN CELL HGB CONCETRATION (test code = MCHC) 29.1 gram/dL 33.0-36. 0 L RED CELL DISTRIBUTION WIDTH (test code = RDW) 17.8 % 11.6-16. 2 H RED CELL DISTRIBUTION WIDTH SD (test code = RDW-SD) 52.8 fL 37 .0-51.0 H PLATELET COUNT (test code = PLT) 110 K/mm3 150-450 L MEAN PLATELET VOLUME (test code = MPV) 12.2 fL 6.7-11.0 H IMMATURE GRANULOCYTE % (test code = IG%) 0.4 % 0.0-5.0 N NUCLEATED RBC % (test code = NRBC%) 0.0 % 0-0 N NEUTROPHIL # (test code = NT#) 5.90 K/mm3 1.8-7.7 N IMMATURE GRANULOCYTE # (test code = IG#) 0.03 x10 3/uL 0-0.03 N LYMPHOCYTE # (test code = LY#) 0.94 K/mm3 1.0-5.0 L MONOCYTE # (test code = MO#) 0.50 K/mm3 0-0.8 N EOSINOPHIL # (test code = EO#) 0.01 K/mm3 0.0-0.5 N BASOPHIL # (test code = BA#) 0.01 K/mm3 0.0-0.2 N NUCLEATED RBC # (test code = NRBC#) 0.00 K/mm3 0.0-0.1 N MANUAL DIFF REQUIRED (test code = MDIFF) YES STAIN ACCEPTABILITY (test code = STN ACCEPTABLE) TOTAL CELLS COUNTED (test code = TCC) #CELLS SEGMENTED NEUTROPHILS (test code = SEG) % 39-69 LYMPHOCYTE (test code = LYMPH) % 25-55 MONOCYTE (test code = MON) % 0-10 EOSINOPHIL (test code = EOS) % 0.0-5.0 MORPHOLOGY COMMENT (test code = MOC) PLATELET ESTIMATE (test code = PLTEST) PLATELET MORPHOLOGY (test code = PLTMORPH) CBC W/MANUAL [id number] 10:20:00* Test Item Value Reference Range Interpretation Comments WHITE BLOOD CELL (test code = WBC) 7.4 K/mm3 4.5-12.5 N RED BLOOD CELL (test code = RBC) 3.04 mill/mm3 3.7-5.2 L HEMOGLOBIN (test code = HGB) 7.2 gram/dL 11.5-15.5 L HEMATOCRIT (test code = HCT) 24.7 % 36.0-46.0 L MEAN CELL VOLUME (test code = MCV) 81.3 fL 80-98 N MEAN CELL HGB (test code = MCH) 23.7 picogram 27.0-33.0 L MEAN CELL HGB CONCETRATION (test code = MCHC) 29.1 gram/dL 33.0-36. 0 L RED CELL DISTRIBUTION WIDTH (test code = RDW) 17.8 % 11.6-16. 2 H RED CELL DISTRIBUTION WIDTH SD (test code = RDW-SD) 52.8 fL 37 .0-51.0 H PLATELET COUNT (test code = PLT) 110 K/mm3 150-450 L MEAN PLATELET VOLUME (test code = MPV) 12.2 fL 6.7-11.0 H IMMATURE GRANULOCYTE % (test code = IG%) 0.4 % 0.0-5.0 N NUCLEATED RBC % (test code = NRBC%) 0.0 % 0-0 N NEUTROPHIL # (test code = NT#) 5.90 K/mm3 1.8-7.7 N IMMATURE GRANULOCYTE # (test code = IG#) 0.03 x10 3/uL 0-0.03 N LYMPHOCYTE # (test code = LY#) 0.94 K/mm3 1.0-5.0 L MONOCYTE # (test code = MO#) 0.50 K/mm3 0-0.8 N EOSINOPHIL # (test code = EO#) 0.01 K/mm3 0.0-0.5 N BASOPHIL # (test code = BA#) 0.01 K/mm3 0.0-0.2 N NUCLEATED RBC # (test code = NRBC#) 0.00 K/mm3 0.0-0.1 N MANUAL DIFF REQUIRED (test code = MDIFF) YES STAIN ACCEPTABILITY (test code = STN ACCEPTABLE) TOTAL CELLS COUNTED (test code = TCC) #CELLS SEGMENTED NEUTROPHILS (test code = SEG) % 39-69 LYMPHOCYTE (test code = LYMPH) % 25-55 MONOCYTE (test code = MON) % 0-10 MORPHOLOGY COMMENT (test code = MOC) PLATELET ESTIMATE (test code = PLTEST) PLATELET MORPHOLOGY (test code = PLTMORPH) CBC W/MANUAL [id number] 10:19:00* Test Item Value Reference Range Interpretation Comments WHITE BLOOD CELL (test code = WBC) 7.4 K/mm3 4.5-12.5 N RED BLOOD CELL (test code = RBC) 3.04 mill/mm3 3.7-5.2 L HEMOGLOBIN (test code = HGB) 7.2 gram/dL 11.5-15.5 L HEMATOCRIT (test code = HCT) 24.7 % 36.0-46.0 L MEAN CELL VOLUME (test code = MCV) 81.3 fL 80-98 N MEAN CELL HGB (test code = MCH) 23.7 picogram 27.0-33.0 L MEAN CELL HGB CONCETRATION (test code = MCHC) 29.1 gram/dL 33.0-36. 0 L RED CELL DISTRIBUTION WIDTH (test code = RDW) 17.8 % 11.6-16. 2 H RED CELL DISTRIBUTION WIDTH SD (test code = RDW-SD) 52.8 fL 37 .0-51.0 H PLATELET COUNT (test code = PLT) 110 K/mm3 150-450 L MEAN PLATELET VOLUME (test code = MPV) 12.2 fL 6.7-11.0 H IMMATURE GRANULOCYTE % (test code = IG%) 0.4 % 0.0-5.0 N NUCLEATED RBC % (test code = NRBC%) 0.0 % 0-0 N NEUTROPHIL # (test code = NT#) 5.90 K/mm3 1.8-7.7 N IMMATURE GRANULOCYTE # (test code = IG#) 0.03 x10 3/uL 0-0.03 N LYMPHOCYTE # (test code = LY#) 0.94 K/mm3 1.0-5.0 L MONOCYTE # (test code = MO#) 0.50 K/mm3 0-0.8 N EOSINOPHIL # (test code = EO#) 0.01 K/mm3 0.0-0.5 N BASOPHIL # (test code = BA#) 0.01 K/mm3 0.0-0.2 N NUCLEATED RBC # (test code = NRBC#) 0.00 K/mm3 0.0-0.1 N MANUAL DIFF REQUIRED (test code = MDIFF) YES STAIN ACCEPTABILITY (test code = STN ACCEPTABLE) TOTAL CELLS COUNTED (test code = TCC) #CELLS SEGMENTED NEUTROPHILS (test code = SEG) % 39-69 LYMPHOCYTE (test code = LYMPH) % 25-55 MONOCYTE (test code = MON) % 0-10 EOSINOPHIL (test code = EOS) % 0.0-5.0 CABOT RINGS (test code = CAB) MORPHOLOGY COMMENT (test code = MOC) PLATELET ESTIMATE (test code = PLTEST) PLATELET MORPHOLOGY (test code = PLTMORPH) CBC W/MANUAL [id number] 10:19:00* Test Item Value Reference Range Interpretation Comments WHITE BLOOD CELL (test code = WBC) 7.4 K/mm3 4.5-12.5 N RED BLOOD CELL (test code = RBC) 3.04 mill/mm3 3.7-5.2 L HEMOGLOBIN (test code = HGB) 7.2 gram/dL 11.5-15.5 L HEMATOCRIT (test code = HCT) 24.7 % 36.0-46.0 L MEAN CELL VOLUME (test code = MCV) 81.3 fL 80-98 N MEAN CELL HGB (test code = MCH) 23.7 picogram 27.0-33.0 L MEAN CELL HGB CONCETRATION (test code = MCHC) 29.1 gram/dL 33.0-36. 0 L RED CELL DISTRIBUTION WIDTH (test code = RDW) 17.8 % 11.6-16. 2 H RED CELL DISTRIBUTION WIDTH SD (test code = RDW-SD) 52.8 fL 37 .0-51.0 H PLATELET COUNT (test code = PLT) 110 K/mm3 150-450 L MEAN PLATELET VOLUME (test code = MPV) 12.2 fL 6.7-11.0 H IMMATURE GRANULOCYTE % (test code = IG%) 0.4 % 0.0-5.0 N NUCLEATED RBC % (test code = NRBC%) 0.0 % 0-0 N NEUTROPHIL # (test code = NT#) 5.90 K/mm3 1.8-7.7 N IMMATURE GRANULOCYTE # (test code = IG#) 0.03 x10 3/uL 0-0.03 N LYMPHOCYTE # (test code = LY#) 0.94 K/mm3 1.0-5.0 L MONOCYTE # (test code = MO#) 0.50 K/mm3 0-0.8 N EOSINOPHIL # (test code = EO#) 0.01 K/mm3 0.0-0.5 N BASOPHIL # (test code = BA#) 0.01 K/mm3 0.0-0.2 N NUCLEATED RBC # (test code = NRBC#) 0.00 K/mm3 0.0-0.1 N MANUAL DIFF REQUIRED (test code = MDIFF) YES STAIN ACCEPTABILITY (test code = STN ACCEPTABLE) TOTAL CELLS COUNTED (test code = TCC) #CELLS SEGMENTED NEUTROPHILS (test code = SEG) % 39-69 LYMPHOCYTE (test code = LYMPH) % 25-55 MONOCYTE (test code = MON) % 0-10 EOSINOPHIL (test code = EOS) % 0.0-5.0 CABOT RINGS (test code = CAB) MORPHOLOGY COMMENT (test code = MOC) PLATELET ESTIMATE (test code = PLTEST) PLATELET MORPHOLOGY (test code = PLTMORPH) COMPREHENSIVE METABOLIC [id number] 08:16:00* Test Item Value Reference Range Interpretation Comments SODIUM (test code = NA) 139 mmol/L 136-145 N POTASSIUM (test code = K) 4.7 mmol/L 3.5-5.1 N CHLORIDE (test code = CL) 110.0 mmol/L 98-107 H CARBON DIOXIDE (test code = CO2) 20.0 mmol/L 21-32 L ANION GAP (test code = GAP) 13.7 10-20 N GLUCOSE (test code = GLU) 73 mg/dL 74-106 L BLOOD UREA NITROGEN (test code = BUN) 35 mg/dL 7-18 H GLOMERULAR FILTRATION RATE (test code = GFR) 25 mL/min >=60 Estimated GFR by using Modified MDRD formula.Chronic kidney disease is defined as either kidney damageor GFR <60 mL/min/1.73 m2 for >3 months. CREATININE (test code = CREAT) 2.10 mg/dL 0.55-1.02 H Note change in reference range due to change in reagent. BUN/CREATININE RATIO (test code = BUN/CREA) 17.0 10-20 N TOTAL PROTEIN (test code = PROT) 6.5 gram/dL 6.4-8.2 N ALBUMIN (test code = ALB) 1.6 g/dL 3.4-5.0 L GLOBULIN (test code = GLOB) 4.9 gram/dL 2.7-4.2 H ALBUMIN/GLOBULIN RATIO (test code = A/G) 0.3 0.75-1.50 L CALCIUM (test code = CA) 8.0 mg/dL 8.5-10.1 L BILIRUBIN TOTAL (test code = BILT) 1.80 mg/dL 0.0-1.0 H SGOT/AST (test code = AST) 28 IUnit/L 15-37 N SGPT/ALT (test code = ALT) 29 IUnit/L 12-78 N ALKALINE PHOSPHATASE TOTAL (test code = ALKP) 362 IUnit/L 45-117 H Note change in reference range due to change in reagent. - US ABDOMEN [id number] 15:38:00 Name: SIOBHAN BARBOSA [facility] : 1965 Age/S: 53 / F Jana Whiting Unit #: [id number] Loc: [place] [address] Phys: EARNEST FAYE MD Acct: [id number] Dis Date: Status: ADM IN PHONE #: [phone] Exam Date: 09/21/2018 1516 FAX #: [phone] Reason: elevated lfts, abdomianal pain EXAMS: CPT CODE: [id number] US ABDOMEN LTD 12931 REASON FOR EXAM: elevated lfts, abdomianal pain EXAM ORDER DATE: 09/21/2018 1:15 PM Attending Madelyn.: EARNEST FAYE MD PROCEDURE: - US ABDOMEN [...] CC: EARNEST FAYE MD Technologist: Belinda Farrell Trnnhb Date/Time: 09/21/2018 (1538) tVEDA Orig Print D/T: S: 09/21/2018 (7091) Probe: PAGE 1 Signed Report LACTIC ACID 2018-09-21 13:40:00* Test Item Value Reference Range Interpretation Comments LACTIC ACID (test code = LACT) 1.1 mmol/L 0.4-1.9 N URINALYSIS [id number] 12:50:00* Test Item Value Reference Range Interpretation Comments UA COLOR (test code = COLU) ENRIKE YELLOW A UA APPEARANCE (test code = APPU) Cloudy CLEAR A UA GLUCOSE DIPSTICK (test code = DGLUU) NEGATIVE mg/dL NEGATIVE UA BILIRUBIN DIPSTICK (test code = BILU) NEGATIVE mg/dL NEGATIVE UA KETONE DIPSTICK (test code = KETU) Negative mg/dL NEGATIVE UA SPECIFIC GRAVITY (test code = SGU) 1.017 1.001-1.035 UA BLOOD DIPSTICK (test code = JONO) 1+ (Small) NEGATIVE A UA PH DIPSTICK (test code = AHMET) 6.0 5.0-8.0 UA PROTEIN DIPSTICK (test code = PROU) 100 (2+) mg/dL NEGATIVE A UA UROBILINIOGEN DIPSTICK (test code = URO) 4.0 (2+) mg/dL NEG ATIVE A UA NITRITE DIPSTICK (test code = IFEOMA) NEGATIVE NEGATIVE UA LEUKOCYTE ESTERASE W REFLEX (test code = LEUUR) 3+ NEG ATIVE A UA WBC (test code = WBCU) >50 #/HPF 0-5 A UA RBC (test code = RBCU) >20 #/HPF 0-5 A UA WBC CLUMPS (test code = WBCUCL) >10 /HPF NONE A UA EPITHELIAL CELLS (test code = EPIU) FEW per HPF FEW UA BACTERIA (test code = BACU) FEW #/HPF NONE A UA RENAL CELLS (test code = PAULO) 0-2 #/HPF 0-5 UA MUCUS (test code = MUCU) FEW #/LPF FEW Urine Source? Clean CatchURINALYSIS [id number] 12:46:00* Test Item Value Reference Range Interpretation Comments UA COLOR (test code = COLU) ENRIKE YELLOW A UA APPEARANCE (test code = APPU) Cloudy CLEAR A UA GLUCOSE DIPSTICK (test code = DGLUU) NEGATIVE mg/dL NEGATIVE UA BILIRUBIN DIPSTICK (test code = BILU) NEGATIVE mg/dL NEGATIVE UA KETONE DIPSTICK (test code = KETU) Negative mg/dL NEGATIVE UA SPECIFIC GRAVITY (test code = SGU) 1.017 1.001-1.035 UA BLOOD DIPSTICK (test code = JONO) 1+ (Small) NEGATIVE A UA PH DIPSTICK (test code = AHMET) 6.0 5.0-8.0 UA PROTEIN DIPSTICK (test code = PROU) 100 (2+) mg/dL NEGATIVE A UA UROBILINIOGEN DIPSTICK (test code = URO) 4.0 (2+) mg/dL NEG ATIVE A UA NITRITE DIPSTICK (test code = IFEOMA) NEGATIVE NEGATIVE UA LEUKOCYTE ESTERASE W REFLEX (test code = LEUUR) 3+ NEG ATIVE A UA WBC (test code = WBCU) per HPF 0-5 Urine Source? Clean CatchPROCALCITONIN (PCT)2018-09-21 12:40:00* Test Item Value Reference Range Interpretation Comments PROCALCITONIN (PCT) (test code = PROCAL) 4.06 ng/ml Results called to [id number] by [facility] 09/21/18 1240Critical results verified and read back [...] patients history. - CT ABD PELVIS W/O [id number] 12:33:00 Name: SIOBHAN BARBOSA [facility] : 1965 Age/S: 53 / F Jana Whiting Unit #: [id number] Loc: [place] [address] Phys: EARNEST FAYE MD Acct: [id number] Dis Date: Status: REG ER PHONE #: [phone] Exam Date: 09/21/2018 1213 FAX #: [phone] Reason: L. sided abdominal pain EXAMS: CPT CODE: [id number] CT ABD PELVIS W/O CONT 23329 HISTORY: Left-sided abdominal pain. COMPARISON: CT scan [...] but no inflammatory changes. Suprapubic catheter within decompresse d urinary bladder double-J stent noted within the left ureter and within t he urinary bladder with 8.5 mm coarse calcification along the anterolatera l margin of the distal J. Moderate hemorrhagic free fluid in the pelvis wi th Hounsfield unit measurement of 36. Patient is post hysterectomy. No pel brandon pathologic adenopathy. PAGE 1 Signed Report (CONTINUED) Name: SIOBHAN BARBOSA [facility] [place] : 1965 Age/S: 53 / F [address] Unit #: [id number] Loc: [place], [place] [address] Phys: EARNEST FAYE MD Acct: [id number] Dis Date: Status: REG ER PHONE #: [phone] Exam Date: 09/21/2018 1213 FAX #: [phone] Reason: L. sided abdominal pain EXAMS: [facility] DE: [id number] CT ABD PELVIS W/O CONT 31746 <Continued> Subcutaneous tissues and the musculature are normal [...] (1233) t.[email or web address] Orig Print D/T: S: 09/21/2018 (3229) CTDI: DLP: PAGE 2 Signed Report BASIC METABOLIC [id number] 12:32:00* Test Item Value Reference Range Interpretation Comments SODIUM (test code = NA) 137 mmol/L 136-145 N POTASSIUM (test code = K) 4.6 mmol/L 3.5-5.1 N CHLORIDE (test code = CL) 105.7 mmol/L 98-107 N CARBON DIOXIDE (test code = CO2) 21.0 mmol/L 21-32 N ANION GAP (test code = GAP) 14.9 10-20 N GLUCOSE (test code = GLU) 142 mg/dL 74-106 H BLOOD UREA NITROGEN (test code = BUN) 32 mg/dL 7-18 H GLOMERULAR FILTRATION RATE (test code = GFR) 23 mL/min >=60 Estimated GFR by using Modified MDRD formula.Chronic kidney disease is defined as either kidney damageor GFR <60 mL/min/1.73 m2 for >3 months. CREATININE (test code = CREAT) 2.19 mg/dL 0.55-1.02 H Note change in reference range due to change in reagent. BUN/CREATININE RATIO (test code = BUN/CREA) 14.6 10-20 N CALCIUM (test code = CA) 9.0 mg/dL 8.5-10.1 N HEPATIC FUNCTION [id number] 12:32:00* Test Item Value Reference Range Interpretation Comments TOTAL PROTEIN (test code = PROT) 7.3 gram/dL 6.4-8.2 N ALBUMIN (test code = ALB) 1.9 g/dL 3.4-5.0 L GLOBULIN (test code = GLOB) 5.4 gram/dL 2.7-4.2 H ALBUMIN/GLOBULIN RATIO (test code = A/G) 0.4 0.75-1.50 L BILIRUBIN TOTAL (test code = BILT) 2.20 mg/dL 0.0-1.0 H BILIRUBIN DIRECT (test code = BILD) 1.76 mg/dL 0.0-0.20 H SGOT/AST (test code = AST) 45 IUnit/L 15-37 H SGPT/ALT (test code = ALT) 37 IUnit/L 12-78 N ALKALINE PHOSPHATASE TOTAL (test code = ALKP) 429 IUnit/L 45-117 H Note change in reference range due to change in reagent. [id number] 12:32:00* Test Item Value Reference Range Interpretation Comments LIPASE (test code = LIP) 157 U/L 73.0-393.0 N [id number] 12:32:00* Test Item Value Reference Range Interpretation Comments TROPONIN-I (test code = TROPI) <0.015 ng/mL 0-0.045 N BASIC METABOLIC [id number] 12:23:00* Test Item Value Reference Range Interpretation Comments SODIUM (test code = NA) 137 mmol/L 136-145 N POTASSIUM (test code = K) 4.6 mmol/L 3.5-5.1 N CHLORIDE (test code = CL) 105.7 mmol/L 98-107 N CARBON DIOXIDE (test code = CO2) 21.0 mmol/L 21-32 N ANION GAP (test code = GAP) 14.9 10-20 N GLUCOSE (test code = GLU) 142 mg/dL 74-106 H BLOOD UREA NITROGEN (test code = BUN) 32 mg/dL 7-18 H GLOMERULAR FILTRATION RATE (test code = GFR) 23 mL/min >=60 Estimated GFR by using Modified MDRD formula.Chronic kidney disease is defined as either kidney damageor GFR <60 mL/min/1.73 m2 for >3 months. CREATININE (test code = CREAT) 2.19 mg/dL 0.55-1.02 H Note change in reference range due to change in reagent. BUN/CREATININE RATIO (test code = BUN/CREA) 14.6 10-20 N CALCIUM (test code = CA) 9.0 mg/dL 8.5-10.1 N HEPATIC FUNCTION [id number] 12:23:00* Test Item Value Reference Range Interpretation Comments TOTAL PROTEIN (test code = PROT) 7.3 gram/dL 6.4-8.2 N ALBUMIN (test code = ALB) 1.9 g/dL 3.4-5.0 L GLOBULIN (test code = GLOB) 5.4 gram/dL 2.7-4.2 H ALBUMIN/GLOBULIN RATIO (test code = A/G) 0.4 0.75-1.50 L BILIRUBIN TOTAL (test code = BILT) 2.20 mg/dL 0.0-1.0 H BILIRUBIN DIRECT (test code = BILD) 1.76 mg/dL 0.0-0.20 H SGOT/AST (test code = AST) 45 IUnit/L 15-37 H SGPT/ALT (test code = ALT) 37 IUnit/L 12-78 N ALKALINE PHOSPHATASE TOTAL (test code = ALKP) 429 IUnit/L 45-117 H Note change in reference range due to change in reagent. [id number] 12:23:00* Test Item Value Reference Range Interpretation Comments LIPASE (test code = LIP) U/L 73.0-393.0 [id number] 12:23:00* Test Item Value Reference Range Interpretation Comments TROPONIN-I (test code = TROPI) <0.015 ng/mL 0-0.045 N PROTHROMBIN [id number] 11:50:00* Test Item Value Reference Range Interpretation Comments PROTHROMBIN TIME PATIENT (test code = PTP) 13.5 seconds 9.0-14.0 N INTERNATIONAL NORMAL RATIO (test code = INR) 1.1 0.8-1.2 N The therapeutic range for oral anticoagulant therapy [...] (2.5-3.5) IS PATIENT ON ANTICOAGULANTS? NTHROMBOPLASTIN TIME [id number] 11:50:00* Test Item Value Reference Range Interpretation Comments THROMBOPLASTIN TIME PARTIAL (test code = PTT) 25.9 seconds 25.0-36. 5 N IS PATIENT ON ANTICOAGULANTS? NCBC W/O [id number] 11:43:00* Test Item Value Reference Range Interpretation Comments WHITE BLOOD CELL (test code = WBC) 10.3 K/mm3 4.5-12.5 N RED BLOOD CELL (test code = RBC) 3.18 mill/mm3 3.7-5.2 L HEMOGLOBIN (test code = HGB) 7.4 gram/dL 11.5-15.5 L HEMATOCRIT (test code = HCT) 25.3 % 36.0-46.0 L MEAN CELL VOLUME (test code = MCV) 79.6 fL 80-98 L MEAN CELL HGB (test code = MCH) 23.3 picogram 27.0-33.0 L MEAN CELL HGB CONCETRATION (test code = MCHC) 29.2 gram/dL 33.0-36. 0 L RED CELL DISTRIBUTION WIDTH (test code = RDW) 17.7 % 11.6-16. 2 H PLATELET COUNT (test code = PLT) 133 K/mm3 150-450 L MEAN PLATELET VOLUME (test code = MPV) 12.5 fL 6.7-11.0 H FLUID, [id number] 15:16:00 RUN DATE: 07/13/18 [employer] [facility] PAGE 1 RUN TIME: 1516 Specimen Inqui ry RUN USER: INTERFACE PATIENT: SIOBHAN BARBOSA ACCT #: [id number] LOC: [id number] U #: [id number] AGE/SX: 53/F ROOM: [facility] RE07/07/18[facility] DR: Karrie Zamudio : 63 BED: B DIS: STATUS: ADM IN TLOC: SPEC #: [id number] RECD: 07/08/18 STATUS: JAC LAZARO #: [id number] RADHA: 07/08/18- DR: Karrie Zamudio ENTERED: 07/08/18 SP TYPE: FL OTHER OTHR DR: Mona Daysi ariel or Family Physician Leticia Luna MD, Herbert LeonardORDERED: GROSS COPIES TO: Mona Primary or Family Physicia Karrie Patel [address] [address] [facility] [employer] [place], [place] [id number] Leticia Luna MD [address] [place], [place] [address] Armando Stoner [address] [place], [place] [id number] PROCEDURES: GROSS (07/13/18-141) TISSUES: URINE - 3 M L PINK CLINICAL HISTORY COLLECTION DATE: 07/08/18 COMMENT Intradepartmental consultation: RRB. FINAL DIAGNOSIS Irrigation f luid from left renal pelvis for cytology: UROTHELIAL CELLS AND COLLECTION S OF AMORPHUS DEGENERATING FIBRINOUS MATERIAL CONTAINING SOME WHITE BLO OD CELLS NEGATIVE FOR MALIGNANCY * * CONTINUED ON NEXT PAGE RUN DATE: 07/13/18 [facility] PAGE 2 RUN TIME: 1516 Specimen Inquiry RUN USER: INTERFACE SPEC #: [id number] PATIENT: SIOBHAN BARBOSA #[id number] (Continued)-------- ---- FINAL DIAGNOSIS (Continued) DM/raleigh D [id number], 16750 MACROSCOPIC The specimen consist of pink fluid for concentration a nd evaluation. A cell block will be prepared. GROSS PERFORMED AT [facility] [address] [place] [address] [phone])[phone] MICROSCOPIC MICROSCOPIC PERFORMED AT [facility] All of the stains, including any controls performed, stain appropriately. [facility] [address] [place] [address] [phone])[phone] PERFORMING SITE Diagnosis performed at: [facility], [place] [address] [place] [address] Signed SIGNATURE ON FILE Janna Patel 07/13/18 1516 END OF REPORT BLADDER,[id number] 17:09:00 RUN DATE: 04/01/18 [facility] PAGE 1 RUN TIME: 1710 Specimen Inqui ry RUN USER: INTERFACE PATIENT: SIOBHAN BARBOSA ACCT #: [id number] LOC: NATALY U #: [id number] AGE/SX: 53/F ROOM: RE03/31/18[facility]AVIA DR: Armando Stoner : 63 BED: DIS: STATUS: [facility] TLOC: SPEC #: [id number] RECD: 03/31/18 STATUS: JAC LAZARO #: [id number] RADHA: 03/31/[address] [facility] [address]: Armando Stoner ENTERED: 03/31/18 SP TYPE: BX EMMA ANDERSON DR: Dolly Del Real MD ORDERED: GROSS COPIES TO: Dolly Del Real MD [address] [place] [address] Armando Stoner [address] [place] [address] PROCEDURES: GROSS (04/01/18-1 155) TISSUES: URINARY BLADDER, NOS - LEFT BX CLINICAL HISTORY COLLECTION DATE: 03/31/18 HEMATURIA, RETENTION URINE COMMENT Intradepartmental consultation: DMW FINAL DIAGNOSIS Urinary bladde r, left lateral wall, biopsy: ACUTE CYSTITIS WITH AREA OF MUCOSAL EROSION AND ASSOCIATED FIBRINOPURULENT EXUDATE NEGATIVE FOR MALIGNANCY CLINICAL CORRELATION RECOMMENDED RRB/raleigh Barnard [address] CONTINUED ON NEXT PAGE RUN DATE: 03/19 11/03 [facility] PAGE 2 RU N TIME: 1710 Specimen Inquiry RUN USER: INTERFACE ------ ------SPEC #: [id number] PATIENT: SIOBHAN BARBOSA SOFIYA #[id number] (Continued) MACROSCOPIC The specimen is receive d in formalin, labeled with the patient's name, and identified as "left latera l bladder wall". The specimen consists of two mcintosh fragments of tissue measuri ng 0.25 and 0.35 cm, submitted for histologic evaluation. GROSS PERFORME D AT [facility] [address] [facility], [place] [address] [phone] MICROSCOPIC MICROSCOPIC PERFORMED A T [facility] All of the stains, including any controls performed, stain appropriately. [facility] [address] [facility], [place] [address] (P)[phone] PERFORMING SITE Diagnosis performed at : [facility], [place] [address] [facility] [place] [address] Signed SIGNATURE ON FILE Ernie Davenport 04/01/18 1709 END OF REPORT
[2019-12-16] VITALS (10 sets, daily range): BP systolic 92–109; BP diastolic 46–73
[2019-12-16] MEDS ORDERED: SODIUM CHLORIDE 0.9% 250ML 250 ML ONE ×3 (01:21→12:38)
[2019-12-16 02:21] LABS: CREATINE KINASE 43 IU/L (29-168)
--- NOTE | 2019-12-16 07:02 | NUR ---
BEDSIDE SHIFT REPORT GIVEN TO ONCOMING NURSE.
[2019-12-16 09:43] LABS: BASOPHILS % 0.7 % (0.0-1.0); EOSINOPHILS # (AUTO) 0.2 (0.0-0.4); EOSINOPHILS % 3.7 % (0.0-6.0); HEMATOCRIT 26.1 % (34.2-44.1); HEMOGLOBIN 8.1 g/dL (12.0-16.0); LYMPHOCYTES # (AUTO) 1.3 (1.0-3.2); LYMPHOCYTES % 21.3 % (18.0-39.1); MEAN CORPUSCULAR VOLUME 90.3 fL (81-99); MONOCYTES # (AUTO) 0.9 (0.2-0.8); MONOCYTES % 14.5 % (4.4-11.3); NEUTROPHILS # (AUTO) 3.7 (2.1-6.9); NEUTROPHILS % 59.5 % (38.7-80.0); PLATELET COUNT 101 x10e3/uL (140-360); RED BLOOD COUNT 2.89 x10e6/uL (3.6-5.1); RED CELL DISTRIBUTION WIDTH 15.7 % (11.7-14.4)
[2019-12-16 10:02] LABS: ALBUMIN 1.9 g/dL (3.5-5.0); ALBUMIN/GLOBULIN RATIO 0.5 (0.8-2.0); ANION GAP 15.4 mmol/L (8-16); CALCIUM 8.3 mg/dL (8.4-10.2); CREATININE, SERUM 3.64 mg/dL (0.57-1.11); POTASSIUM 5.4 mmol/L (3.5-5.1)
[2019-12-16 10:20] LABS: CREATINE KINASE MB 6.8 ng/mL (0-5.0)
--- NOTE | 2019-12-16 10:22 | NUR ---
POST TRANSFUSION H/H IS 8.1 AND 26.1. OFFERED BREAKFAST BUT ONLY AT 25%. IN NO APPARENT DISTRESS. SLEEPING UNLESS DISTURBED.
[2019-12-16] MEDS ORDERED: NON-FORMULARY MEDICATION (Acetaminophen With Codeine (Tylenol With Codeine #4 Tablet) 1 TA PO PRN (10:45)
[2019-12-16] MEDS ORDERED: ONDANSETRON HCL INJ 2MG/ML 2ML 2 MG/ML VIAL IV PRN (11:00)
[2019-12-16] MEDS ORDERED: HYDRALAZINE HCL 20 MG/ML VIAL IV PRN (11:00)
[2019-12-16] MEDS ORDERED: LORAZEPAM INJ 2 MG/ML VIAL IV PRN (11:00)
[2019-12-16] MEDS: SUCRALFATE 1 GM TAB PO SCH ×3 (11:48→21:52)
[2019-12-16] MEDS: DOCUSATE SODIUM 100 MG CAP PO SCH ×2 (11:49→17:47)
[2019-12-16] MEDS: FUROSEMIDE 40 MG TAB PO SCH (11:50)
[2019-12-16] MEDS: GABAPENTIN 300 MG CAP PO SCH ×2 (11:50→16:46)
--- NOTE | 2019-12-16 12:24 | Consultation ---
DATE OF CONSULTATION: HISTORY OF PRESENT ILLNESS: The patient is seen and evaluated. Available labs and notes reviewed. Discussed with Dr. Black and discussed with the attending team. This is a 54-year-old female with complicated past medical history including suprapubic catheter placement and recent bilateral AKA secondary to severe infection and lymphedema of bilateral lower extremities. The patient was transferred to rehab and now the patient is back with severe hematuria with a concern of UTI. Infectious Disease consulted for the management of IV antibiotics. The patient was just recently discharged from here on 12/07 after she has had bilateral AKA. PAST MEDICAL HISTORY: Including hepatic cirrhosis, multiple admissions to the hospital, history of kidney abscess and infection, chronic kidney disease stage 4, debility, lymphedema of bilateral lower extremities status post bilateral AKA, venous stasis, lower extremities, multiple wounds, thrombocytopenia, encephalopathy secondary to hepatic. PAST SURGICAL HISTORY: Suprapubic catheterization placement, eye surgery, skin graft, bilateral AKAs, line placements, anxiety, UTI, hepatitis C, transaminitis, history of chronic obstructive pulmonary disease with exacerbation, hypothyroidism, depression, chronic pain, fungal dermatitis, MRSA infection, MDR colonization. FAMILY HISTORY: Father and brother with diabetes. Mother with cancer. SOCIAL HISTORY: No recent history of tobacco, alcohol or illicit drugs. ALLERGIES: CEPHALEXIN. MEDICATION: Reviewed from Infectious Disease point of view, the patient is currently on cefepime. REVIEW OF SYSTEMS: Still complained of cough. No nausea, vomiting, fever, chills, chest pain, shortness of breath, headache, or rash. The patient complains of hematuria. PHYSICAL EXAMINATION: VITAL SIGNS: Temperature 98.2, pulse 77, respirations 16, blood pressure 108/66. GENERAL: Alert and oriented. She coughed during my visit. CV: S1-S2. CHEST: Equal expansion. Decreased breath sounds. Few crackles, which improved after the cough. ABDOMEN: Soft and nontender. No distention. HEENT: Moist. No pallor. No JVD. EXTREMITIES: Bilateral AKA, stable with mervat. ASSESSMENT AND PLAN: Hematuria-concern infection. Blood culture and urine culture pending. No new radiology studies available at this point. The patient is on cefepime. We will switch the patient to Merrem since the patient has a history of multiple hospitalizations and MDR infection. Continue with PT/OT. Hopefully, get to remove the mervat and continue to monitor the patient. Clinically, followup with the labs. Thank you for this consult. We will follow with you. This case was discussed with Dr. Black in details. Dictated by Jules Miner PA-C (Al) Vilma Black MD /MODL /[id number]
[2019-12-16] MEDS: MEROPENEM 500MG/ NS 50ML 50 ML IV SCH (12:33)
[2019-12-16 15:10] LABS: BASOPHILS % 0.7 % (0.0-1.0); EOSINOPHILS # (AUTO) 0.2 (0.0-0.4); HEMATOCRIT 25.7 % (34.2-44.1); LYMPHOCYTES # (AUTO) 0.9 (1.0-3.2); LYMPHOCYTES % 16.8 % (18.0-39.1); MEAN CORPUSCULAR HEMOGLOBIN 28.1 pg (28-32); MEAN CORPUSCULAR HGB CONC 31.1 g/dL (31-35); MEAN CORPUSCULAR VOLUME 90.2 fL (81-99); MONOCYTES # (AUTO) 0.8 (0.2-0.8); MONOCYTES % 13.4 % (4.4-11.3); NEUTROPHILS # (AUTO) 3.7 (2.1-6.9); NEUTROPHILS % 65.7 % (38.7-80.0); PLATELET COUNT 92 x10e3/uL (140-360); RED BLOOD COUNT 2.85 x10e6/uL (3.6-5.1); RED CELL DISTRIBUTION WIDTH 16.1 % (11.7-14.4)
--- NOTE | 2019-12-16 15:44 | NUR ---
Nutrition Intervention Note RD Recommendation(s) for Physician: -Continue current diet as ordered -Recommend Damien BID as well as zinc and vitamin C to promote wound healing Plan of Care: RD following, monitoring for tolerance and adequacy, oral supplement recommendation Nutrition reason for involvement: pressure ulcer RD Assessment (12/16/19) Pt is a 54 year old female admitted with anemia, hyperkalemia, and severe sepsis without septic shock. Pt reports she has been eating >50% of her meals. Pt was unsure of any recent weight changes. No N/V/D/C or chewing/swallowing issues. 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 GI: soft, non-tender, round, abdomen Skin: buttock unstagebale pressure ulcer Labs: (12/15) Na 128, K 5.4, Cl 93, BUN 54, Cr 3.64, Glu 84, Ca 8.3, Total Bili 2.1 Meds: meropenem, lasix, colace, carafate, zofran, hydralazine, levothyroxine, pepcid Ht: 62 inches Wt: 142 lbs BMI: 26.0 kg/m2 IBW: 110 lbs Malnutrition Evaluation (12/16/19) The patient does not meet criteria for a specified degree of malnutrition at this time. Will re-evaluate at follow-up as appropriate. Nutrition Prescription (Diet Order): cardiac Estimated Nutritional Needs: 5305-6543 calories/day (18-20 kcal/kg CBW) 77-95 g protein/day (1.2-1.5 g pro/kg CBW) Diet Adequacy: Meeting calorie needs, Meeting protein needs Tolerance: Tolerating PO Diet Education Needs Assessment: Pt declined need for diet education Nutrition Care Level: low Nutrition Diagnosis: Increased nutrient needs related to increased demand for protein and kcal as evidenced by unstageable buttock pressure ulcer. Goal: Patient will meet 75-100% of estimated needs by follow up Progress: N/A Interventions: -cholesterol/sodium/fat - modified diet, Commercial beverage, Multivitamin/mineral supplement therapy Monitoring/Evaluation: -Total energy intake, Total protein intake, Liquid supplement, Weight change Signed: Caroline Villasenor RD, LD
[2019-12-16] MEDS: FAMOTIDINE 20 MG TAB PO SCH (16:46)
[2019-12-16] MEDS ORDERED: ASCORBIC ACID 500 MG TAB PO SCH (17:00)
[2019-12-16 18:23] LABS: PLATELET ESTIMATE MODERATELY DECREASED
[2019-12-16 18:24] LABS: PLATELET MORPHOLOGY COMMENT NORMAL
--- NOTE | 2019-12-16 19:27 | Diagnostic Imaging Report ---
EXAM: CT Abdomen and Pelvis WITHOUT contrast INDICATION: Stone protocol. COMPARISON: KUB 12-05-2019. CT abdomen/pelvis 01-04-2019. TECHNIQUE: Abdomen and pelvis were scanned utilizing a multidetector helical scanner from the lung base to the pubic symphysis without administration of IV contrast. Absence of intravenous contrast decreases sensitivity for detection of focal lesions and vascular pathology. Coronal and sagittal reformations were obtained. Stone protocol is performed. IV CONTRAST: None. ORAL CONTRAST: None. RADIATION DOSE: Total DLP: 737 mGy*cm Estimated effective dose: (DLP x 0.015 x size factor) mSv COMPLICATIONS: None FINDINGS: LINES and TUBES: There has been interval displacement/dislodgment of the left internal ureteral stent, which is now looped within the bladder. Suprapubic catheter within the bladder. LOWER THORAX: Partially visualized small left pleural effusion with loculation along the lateral aspect. Patchy dependent opacities, likely atelectasis. Coronary atherosclerosis. HEPATOBILIARY: Cirrhotic morphology to the liver. GALLBLADDER: Cholelithiasis. Decompressed gallbladder. No evidence of surrounding inflammatory changes. SPLEEN: Splenomegaly, measuring up to 17 cm. PANCREAS: No evidence of focal masses or ductal dilatation. ADRENALS: No adrenal nodules KIDNEYS/URETERS: Atrophic bilateral kidneys. Extensive left-sided nephrolithiasis including a staghorn calculus in the upper pole, measuring up to 2.3 cm. Additional stones include a left upper pole 1.4 cm stone in lower pole 1.1 cm stone. There is left-sided pelviectasis with mild hydronephrosis. There are hyperdense hemorrhagic products within the left renal pelvis extending into the ureter. GI TRACT: No evidence of obstruction. Small hiatal hernia with circumferential mild wall thickening within the distal esophagus. PELVIC ORGANS/BLADDER: Hyperdensities within the bladder, suggestive of hemorrhagic products. LYMPH NODES: No lymphadenopathy. VESSELS: Extensive atherosclerotic calcifications of the branch vessels of the abdominal aorta, and within the bilateral iliac, common femoral, and femoral arteries. Infrarenal IVC filter with struts penetrating the IVC wall. PERITONEUM / RETROPERITONEUM: No free air or fluid. BONES: No acute osseous abdomen. No suspicious lytic or blastic lesions. SOFT TISSUES: Diffuse anasarca. IMPRESSION: Displacement/dislodgment of the left internal ureteral stent, which is now looped within the bladder. Hemorrhagic products within the bladder, left ureter, and left renal pelvis with mild left hydronephrosis. Multiple nonobstructing left-sided renal stones including a 2.3 cm left upper pole staghorn calculus. Partially visualized small loculated left pleural effusion. Recommend follow-up chest CT for further evaluation. Cirrhosis with sequela of portal hypertension. Signed by: Dr. Raymond Almeida MD on 12/16/2019 7:23 PM
[2019-12-16] MEDS: MIRTAZAPINE 15 MG TAB PO SCH (21:00)
[2019-12-17] VITALS (9 sets, daily range): BP systolic 90–114; BP diastolic 42–78
[2019-12-17] MEDS: LEVOTHYROXINE SODIUM 100 MCG TAB PO SCH (05:38)
[2019-12-17 05:52] LABS: BASOPHILS % 0.6 % (0.0-1.0); EOSINOPHILS # (AUTO) 0.2 (0.0-0.4); EOSINOPHILS % 4.7 % (0.0-6.0); HEMATOCRIT 25.6 % (34.2-44.1); HEMOGLOBIN 7.8 g/dL (12.0-16.0); LYMPHOCYTES # (AUTO) 1.2 (1.0-3.2); MEAN CORPUSCULAR HEMOGLOBIN 27.7 pg (28-32); MEAN CORPUSCULAR HGB CONC 30.5 g/dL (31-35); MEAN CORPUSCULAR VOLUME 90.8 fL (81-99); MONOCYTES # (AUTO) 0.8 (0.2-0.8); MONOCYTES % 15.9 % (4.4-11.3); NEUTROPHILS # (AUTO) 2.5 (2.1-6.9); NEUTROPHILS % 53.6 % (38.7-80.0); PLATELET COUNT 90 x10e3/uL (140-360); RED BLOOD COUNT 2.82 x10e6/uL (3.6-5.1); RED CELL DISTRIBUTION WIDTH 16.1 % (11.7-14.4)
[2019-12-17 06:36] LABS: ALBUMIN/GLOBULIN RATIO 0.5 (0.8-2.0); ANION GAP 14.2 mmol/L (8-16); CALCIUM 8.1 mg/dL (8.4-10.2); CREATININE, SERUM 3.78 mg/dL (0.57-1.11); POTASSIUM 5.2 mmol/L (3.5-5.1)
[2019-12-17] MEDS: FAMOTIDINE 20 MG TAB PO SCH ×3 (07:30→12:26)
--- NOTE | 2019-12-17 07:42 | Diagnostic Imaging Report ---
EXAMINATION: CHEST XRAY LINE PLACEMENT INDICATION: Verify line. COMPARISON: Chest radiograph 11/30/2019. CT Abdomen/Pelvis 12/16/2019. FINDINGS: TUBES and LINES: Interval placement of right PICC which terminates in a midline position in the expected location of the distal right axillary vein. LUNGS: Lungs are well inflated. Bibasilar patchy opacities. Mild interstitial opacities. PLEURA: Loculated small left pleural effusion is better characterized on abdominal CT from 12/16/2019. No pneumothorax. HEART AND MEDIASTINUM: The cardiomediastinal silhouette is mildly enlarged, unchanged. Atherosclerotic calcifications of the aortic arch BONES AND SOFT TISSUES: No acute osseous abnormality. Remote right clavicular fracture deformity. UPPER ABDOMEN: No free air under the diaphragm. IMPRESSION: Cardiomegaly with mild pulmonary interstitial edema. Loculated small pleural effusion, better characterized on prior CT. Bibasilar opacities may represent atelectasis or infection in the appropriate clinical setting. Signed by: Dr. Raymond Almeida MD on 12/17/2019 7:38 AM
[2019-12-17] MEDS: GABAPENTIN 300 MG CAP PO SCH ×2 (08:30→17:00)
[2019-12-17] MEDS: SUCRALFATE 1 GM TAB PO SCH ×4 (08:31→21:40)
[2019-12-17] MEDS: DOCUSATE SODIUM 100 MG CAP PO SCH ×2 (08:39→17:00)
[2019-12-17] MEDS: FUROSEMIDE 40 MG TAB PO SCH (08:40)
[2019-12-17] MEDS ORDERED: SOD POLYSTYRENE SULFONATE SUSP 15 GM/60 ML BTL PO NR ×2 (09:30→22:10)
[2019-12-17] MEDS: MEROPENEM 500MG/ NS 50ML 50 ML IV SCH (11:38)
--- NOTE | 2019-12-17 12:48 | Consultation ---
DATE OF CONSULTATION: Pulmonary Critical Care Consultation CHIEF COMPLAINT: Cirrhosis and loculated small left pleural effusion. HISTORY OF PRESENT ILLNESS: The patient is a 54-year-old woman. She has a history of cirrhosis as well as chronic renal failure stage 4. She has a history of ureteral obstruction. She also has severe peripheral vascular disease. She recently required amputations above the knee bilaterally. She now returns with recurrent hematuria. She had a CT scan of the abdomen and pelvis that showed a dislodged ureteral stent, but also showed a loculated left pleural effusion. PAST SURGICAL HISTORY: 1. Status post evacuation of rectus hematoma. 2. Status post ureteroscopies and stent placement. 3. Status post left AKA with status post right AKA. PAST MEDICAL HISTORY: 1. Hepatitis C. 2. Cirrhosis of the liver. 3. Peripheral vascular disease. 4. Thrombocytopenia. 5. Anemia. 6. Chronic renal failure stage 4. SOCIAL HISTORY: The patient lives at a nursing facility. She is not an active smoker or drinker. FAMILY HISTORY: Noncontributory. ALLERGIES: THE PATIENT IS ALLERGIC TO CEPHALEXIN. REVIEW OF SYSTEMS: There is no history of fever. She has no headache. She has no chest pain. She has no difficulty breathing. She has no abdominal pain. She does have some confusion. She also has hematuria. PHYSICAL EXAMINATION: VITAL SIGNS: The blood pressure is 90/44, and pulse is 72. Saturation is 95%. HEENT: Shows no facial swelling or erythema. CARDIAC: Reveals regular rate and rhythm with normal S1 and S2. LUNGS: Auscultation of lungs shows decreased breath sounds at the bases. There is no wheezing. ABDOMEN: Soft. There may be some ascites. There is no rebound or guarding. There are bilateral rksfy-vqz-pvlw amputations. LABORATORY DATA: Hemoglobin is 7.8 and white blood cell count is 4.7. The platelet count is 90. The BUN to creatinine ratio is 57 to 3.78. The potassium is 5.2 and the sodium is 130. Albumin is 2.0. IMAGING: CT scan of the abdomen and pelvis shows dislodgement of the left internal ureteral stent. There are some kidney stones on the left side. The patient has a small loculated left pleural effusion. IMPRESSION: 1. Small left loculated pleural effusion. 2. Cirrhosis. 3. Thrombocytopenia. 4. Hematuria. 5. Nephrolithiasis with recurrent ureteral obstruction. 6. Hepatic encephalopathy. 7. Severe peripheral vascular disease. PLAN: 1. No further therapy is indicated for the loculated small effusion on the left at this time. 2. Continue with current treatment for cirrhosis. 3. Urological evaluation for dislodged ureteral stent. MD LIBAN Lake/MODL /[id number]
[2019-12-17 16:16] LABS: BASOPHILS % 0.4 % (0.0-1.0); EOSINOPHILS # (AUTO) 0.1 (0.0-0.4); EOSINOPHILS % 2.8 % (0.0-6.0); HEMATOCRIT 25.6 % (34.2-44.1); HEMOGLOBIN 7.7 g/dL (12.0-16.0); LYMPHOCYTES # (AUTO) 1.1 (1.0-3.2); LYMPHOCYTES % 23.6 % (18.0-39.1); MEAN CORPUSCULAR HEMOGLOBIN 27.6 pg (28-32); MEAN CORPUSCULAR HGB CONC 30.1 g/dL (31-35); MEAN CORPUSCULAR VOLUME 91.8 fL (81-99); MONOCYTES # (AUTO) 0.8 (0.2-0.8); MONOCYTES % 16.3 % (4.4-11.3); NEUTROPHILS # (AUTO) 2.7 (2.1-6.9); NEUTROPHILS % 56.5 % (38.7-80.0); PLATELET COUNT 83 x10e3/uL (140-360); RED BLOOD COUNT 2.79 x10e6/uL (3.6-5.1); RED CELL DISTRIBUTION WIDTH 16.1 % (11.7-14.4)
--- NOTE | 2019-12-17 19:44 | Consultation ---
DATE OF CONSULTATION: 12/16/2019 The patient was seen and examined on 12/15. Please refer to my note in the chart. HISTORY OF PRESENT ILLNESS: The patient is well known to me, multiple admissions, complicated case, 54-year-old, who has history of liver cirrhosis, chronic kidney disease, multiple surgeries, stent placement, left AKA, and right AKA, comes in with shortness of breath and not feeling well. The patient was admitted. Please refer to my note in the chart. PHYSICAL EXAMINATION: GENERAL: She is currently alert, oriented, does not seem acute distress. VITAL SIGNS: Stable, afebrile. HEENT: She is not icteric. NECK: Supple. CHEST: Clear. ABDOMEN: Soft. IMPRESSION: Shortness of breath present on admission. Rule out sepsis. Rule out UTI. The patient has history of ESBL. We will put her on meropenem. We will follow with you. Other medical problem as above. Please refer to my note. MD TULIO Jesus/KENAN /[id number]
[2019-12-17 21:30] LABS: PLATELET ESTIMATE MODERATELY DECREASED
[2019-12-17] MEDS: MIRTAZAPINE 15 MG TAB PO SCH (21:40)
[2019-12-18] VITALS (9 sets, daily range): BP systolic 80–103; BP diastolic 37–68
[2019-12-18 05:46] LABS: ALBUMIN 1.7 g/dL (3.5-5.0); ALBUMIN/GLOBULIN RATIO 0.4 (0.8-2.0); ANION GAP 12.9 mmol/L (8-16); CREATININE, SERUM 3.74 mg/dL (0.57-1.11); POTASSIUM 4.9 mmol/L (3.5-5.1)
[2019-12-18 05:59] LABS: BASOPHILS % 0.5 % (0.0-1.0); EOSINOPHILS # (AUTO) 0.1 (0.0-0.4); EOSINOPHILS % 3.1 % (0.0-6.0); HEMATOCRIT 22.6 % (34.2-44.1); LYMPHOCYTES # (AUTO) 1.1 (1.0-3.2); LYMPHOCYTES % 26.9 % (18.0-39.1); MEAN CORPUSCULAR HEMOGLOBIN 28.5 pg (28-32); MEAN CORPUSCULAR VOLUME 91.9 fL (81-99); MONOCYTES # (AUTO) 0.7 (0.2-0.8); MONOCYTES % 16.7 % (4.4-11.3); NEUTROPHILS # (AUTO) 2.2 (2.1-6.9); NEUTROPHILS % 52.3 % (38.7-80.0); PLATELET COUNT 70 x10e3/uL (140-360); RED BLOOD COUNT 2.46 x10e6/uL (3.6-5.1); RED CELL DISTRIBUTION WIDTH 15.9 % (11.7-14.4)
[2019-12-18] MEDS: LEVOTHYROXINE SODIUM 100 MCG TAB PO SCH (06:26)
--- NOTE | 2019-12-18 06:26 | NUR ---
SUPRAPUBIC CATH IRRIGATED Q4H AT 2200,0200 AND 0600 PER MD ORDER. MULTIPLE BLOOD CLOTS REMOVED.
[2019-12-18] MEDS ORDERED: SODIUM CHLORIDE 0.9% 250ML 250 ML IV NR (09:30)
[2019-12-18] MEDS: FUROSEMIDE 40 MG TAB PO SCH (09:32)
[2019-12-18] MEDS: SUCRALFATE 1 GM TAB PO SCH ×4 (09:32→20:24)
[2019-12-18] MEDS: DOCUSATE SODIUM 100 MG CAP PO SCH ×2 (09:32→16:14)
[2019-12-18] MEDS: GABAPENTIN 300 MG CAP PO SCH ×2 (09:32→16:14)
[2019-12-18] MEDS: MEROPENEM 500MG/ NS 50ML 50 ML IV SCH (11:31)
--- NOTE | 2019-12-18 12:35 | NUR ---
WOUND CARE CONSULT FOR 54 YO FEMALE HX OFANEMIA, HYPERKALEMIA,SEPSIS DORCAS 13 ON MODERATE PUP STATUS AND INTERVENTIONS AND ALTERNATING PRESSURE MATTRESS LABS: WBC-4.24 HGB_7 GLUCOSE-103 SKIN ASSESSMENT COMPLETE PATIENT PRESENTS WITH UNSTAGEABLE RIGHT SACRO GLUTEAL ULCERATION 50%SLOUGH AND 50% SOFT FINNEY ESCHAR L SHAPED 6CM X6CM BILATERAL AKA STAPLE/SUTURE LINES INTACT AND APPROXIMATED RECOMMENDATIONS: NURSING TO CONTINUE TO MAINTAIN MODERATE PUP STATUS AND INTERVENTIONS AND ALTERNATING PRESSURE MATTRESS NURSING TO CONTINUE TO ASSIST PATIENT OUT OF BED FOR MEALS AND MUCH TOLERATED NURSING TO CONTINUE TO ASSIST PATIENT NEEDED WITH MEALS AND NUTRITIONAL SUPPLEMENTS TO ENSURE PROPER REQUIREMENTS FOR HEALING NURSING TO CONTINUE TO MONITOR BILATERAL AKA STAPLE/SUTURE LINES OFFLOAD NEEDED WITH PILLOW WHEN IN BED NURSING TO CLEAN RIGHT SACRO GLUTEAL UNSTAGEABLE ULCERATION WITH NORMAL SALINE DAILY AND APPLY SANTYL OINTMENT AND COVER WITH 4X4 SECURE WITH ALLEVYN FOAM DRESSING Addendum: 12/18/19 at 1244 by Adair Esteves RN Amended: Links added.
[2019-12-18] MEDS ORDERED: ALBUMIN 25% 12.5GM 0.25 GM/ML BTL IV SCH (13:00)
--- NOTE | 2019-12-18 13:33 | Progress Note ---
DATE: SUBJECTIVE: The patient is seen and evaluated, discussed with Dr. Black in details. The patient is sleepy a little bit today. REVIEW OF SYSTEMS: The patient with no complaints. No nausea, vomiting, fever, chills, chest pain, shortness of breath. The pain is controlled. PHYSICAL EXAMINATION: VITAL SIGNS: Temperature 98.6 with a T-max of 99.5 last night around 08:30 to 09:30, pulse 69, respirations 18, and blood pressure 103/56. GENERAL: Sleepy, bed, but seems to be alert and oriented. CV: S1-S2. CHEST: Equal expansion. Decreased breath sounds. No acute distress. ABDOMEN: Soft, nontender. Positive bowel sounds. HEENT: Moist. No pallor. No JVD. EXTREMITIES: Bilateral AKA recently done. The patient with suprapubic cath. MEDICATIONS: Medication list reviewed. From Infectious Disease point of view, the patient is on meropenem. LABORATORY STUDIES: White count of 4.24, hemoglobin 7, platelets 70. Sodium 129, potassium 4.9, creatinine 3.74. Lactic acid 0.6, total bilirubin of 0.9, AST 41 from 33, ALT 22 stable, ALP 480 from 506. MICROBIOLOGY: Urine culture showed gram-negative rods, less than 10,000, to follow. Blood culture, one showed gram-positive and one is negative. Pending culture on blood culture that the Gram stain was positive. RADIOLOGY STUDIES: The patient is status post line placement and also had a CT of abdomen and pelvis showed displaced/dislodged left internal urethral stent, which is within the bladder, also showed left ureter and left renal pelvis with mild left hydronephrosis, multiple nonobstructive left-sided renal stones including 2.3 cm left upper pole staghorn calculus. Also, showed partially visualized small loculated left pleural effusion, also with cirrhosis and . ASSESSMENT AND PLAN: 1. Hematuria. 2. secondary to dislodged stents. 3. Loculated pleural effusion. PLAN: 1. Conservative treatment at this point and if the bleeding continues, patient may go to OR. We will follow up with urine culture. 2. Renal insufficiency. 3. PVD. 4. Debility. 5. Pancytopenia. 6. Continue with meropenem. Follow up with the cultures. Overall guarded prognosis. The patient is seen by Pulmonology. No further therapy is indicated for the loculated small effusion on the left at this time per Pulmonology's note. Discussed with Dr. Black. Please refer to chart for information. Dictated by Jules Zavala) CHRIS Miner Vilma Black MD /MODL /[id number]
[2019-12-18] MEDS ORDERED: ALBUMIN 25% 12.5GM 50ML 50 ML IV SCH (14:00)
--- NOTE | 2019-12-18 14:08 | Progress Note ---
DATE: 12/18/2019 SUBJECTIVE: The patient is followed for acute kidney injury on chronic kidney disease. The patient's creatinine is better today. Potassium is also normalized. The patient is nonoliguric. She has gross hematuria. Apparently, dislodged stent. Urology is on the case. The patient is somewhat fluid overloaded. Sodium has gone down to 129. She is in the process of receiving PRBCs and also will get some FFP. The patient is also getting oral Lasix. IV Lasix will be given after each blood transfusion. The patient will also likely benefit from scheduled IV Lasix. Does have some shortness of breath. No nausea, no vomiting. No other symptoms. OBJECTIVE: VITAL SIGNS: Noted. Blood pressure is 90s to low 100s over 50s to 60s. LUNGS: Rales at the bases bilaterally. CARDIOVASCULAR: S1, S2. No rub. ABDOMEN: Soft, nontender. EXTREMITIES: No edema over stumps. LABS: Sodium is now 129, potassium 4.9, chloride 94, bicarb 27, BUN 51, creatinine 3.7, and albumin 1.7. IMPRESSION AND PLAN: 1. Acute kidney injury on chronic kidney disease stage 4. BUN, creatinine slowly improving. BUN is slightly high, but creatinine is better at 3.74. Currently, no urgent indication for any acute dialysis. We will benefit from IV diuresis. We will place on IV Lasix 40 mg q.12 hours. 2. Agree with blood transfusion which will help improve renal perfusion and therefore would help improve the kidney function. We are going to repeat labs in the morning. Make further recommendations. 3. Hypertension/hypotension, we will add low-dose midodrine 5 mg daily. PRBC transfusion will also help as well as FFP transfusion to allow the blood pressure to come up. We will also give IV albumin infusions. The patient's albumin is only 1.7. 4. Congestive heart failure exacerbation, we will change Lasix to IV 40 mg q.12 hours. Also, add IV albumin, which will allow for better diuresis. 5. Gross hematuria secondary to dislodged stent. Urology is following the patient, bladder irrigation is as per Urology recommendations. Kirby Hammond MD /MODL /[id number] cc: Gray Knott MD
[2019-12-18] MEDS: COLLAGENASE 5 GM TUBE TOP SCH (14:15)
[2019-12-18] MEDS: ALBUMIN 25% 12.5GM 50ML 50 ML IV SCH ×2 (16:00→21:09)
[2019-12-18] MEDS: MIDODRINE HCL 5 MG TABLET PO SCH (16:00)
[2019-12-18] MEDS: FAMOTIDINE 20 MG TAB PO SCH (16:14)
--- NOTE | 2019-12-18 16:34 | Consultation ---
DATE OF CONSULTATION: 10/17/2019 Nephrology consultation REASON FOR CONSULTATION: Acute kidney injury on chronic kidney disease stage 4. HISTORY OF PRESENT ILLNESS: This is a 54-year-old white woman, well known to me from the recent admissions to this hospital in October and later again in November. She is known to have chronic kidney disease stage 4, presumably due to obstructive uropathy in the past. Her last ultrasound showed a nonfunctional appearing right kidney with hydronephrosis, with a normal-appearing left kidney, which did have a nonobstructive stone. I understand she has had stent to the left ureter, but it is not clear that the stent has since been removed. At any rate, she left the hospital earlier this month with a serum creatinine of 2, which was considered her baseline. During that last admission, she did undergo a bilateral hazch-xos-txvw amputation for severe peripheral vascular disease. The patient has returned now apparently with hematuria. She has been started on IV meropenem for UTI by Infectious Disease. The patient is arousable and will answer in yes and no's. However, she is presently unwilling or unable to hold a discussion. It seems to deny any shortness of breath, abdominal or flank pain. I have reviewed her chart and tried to obtain as much information as I could. CT scan of the abdomen and pelvis showed a dislodged ureteral stent as well as a loculated left pleural effusion. PAST MEDICAL HISTORY: Hepatitis C leading to cirrhosis of the liver requiring maintenance on diuretics, peripheral vascular disease, thrombocytopenia, anemia and chronic kidney disease stage 4. SOCIAL HISTORY: The patient is a resident of a nursing facility. Not an active smoker or drinker. FAMILY HISTORY: Noncontributory. MEDICATIONS: Reviewed in SEP. REVIEW OF SYSTEMS: Unobtainable from the patient. Chart reviewed. PHYSICAL EXAMINATION: GENERAL: The patient appears comfortable and in no acute distress at this time. VITAL SIGNS: Blood pressure 100/45, pulse 72 per minute, oxygen saturation 95%, afebrile. SKIN: Normal turgor, no generalized lesions. HEENT: No facial swelling or edema. External ocular movements intact. NECK: Supple without jugular venous distention. CARDIAC: Normal S1, S2 without rub or gallop. LUNGS: Auscultation anterolaterally reveals decreased breath sounds at the bases. No wheezing or crepitations heard. ABDOMEN: Soft, nondistended. EXTREMITIES: Bilateral yeprc-oma-rxwe amputation recently. NEUROLOGICAL: The patient is awake and appears oriented, though will not participate in interview. LABORATORY DATA: Hemoglobin 7.8, normal white count. Platelet count more than 90. Potassium 5.26, sodium 130, serum albumin 2, creatinine up to 3.78 from baseline of 2, and BUN 57. Urinalysis shows turbid urine, 3+ protein, greater than 50 red cells and 6-10 white cells with moderate bacteria seen. Urine culture is pending. IMPRESSION: 1. Acute kidney injury, likely related to dislodged left ureteric stent, with possible contribution from urinary infection. 2. Mild hyponatremia, which appears asymptomatic. 3. Mild hyperkalemia, secondary to decreased GFR. 4. Hypoalbuminemia, secondary to chronic liver disease. 5. Anemia secondary to chronic kidney disease apart from other chronic illnesses. 6. Urinary tract infection, being treated with IV meropenem per ID. RECOMMENDATION: 1. Continue to treat urinary infection. 2. Urology consult to see if ureter needs to be re-inserted. Review imaging studies to see if there is actual hydronephrosis or not. 3. Treat hyperkalemia with p.r.n. Kayexalate and trend daily renal function and electrolytes. 4. Monitor blood pressure, all BP medications. 5. Continue diuretics for chronic cirrhotic liver retention. 6. Monitor hemoglobin and transfuse if less than 7. In the long run, she will need some sort of erythropoietin stimulating agents. Check iron profile if not done recently. 7. Avoid all known nephrotoxins. We will follow patient and recommend as needed. Thank you for the opportunity to participate in her care. Diogenes Porras MD [facility]/MODL /[id number]
[2019-12-18] MEDS ORDERED: SODIUM CHLORIDE 0.9% 250ML 250 ML ONE ×2 (16:49→21:26)
[2019-12-18] MEDS: FUROSEMIDE INJ 10 MG/ML 2 ML VIAL IV PRN (18:25)
[2019-12-18] MEDS: MIRTAZAPINE 15 MG TAB PO SCH (20:24)
--- NOTE | 2019-12-18 20:45 | NUR ---
SUPRAPUBIC CATH IRRIGATED PER MD ORDER. NO CLOTS NOTED
[2019-12-18] MEDS: FUROSEMIDE INJ 10 MG/ML 4 ML VIAL IV SCH (21:00)
--- NOTE | 2019-12-18 21:30 | NUR ---
ADMINISTERED BLOOD TRANSFUSION AT THIS TIME. VERIFIED WITH 2ND NURSE
--- NOTE | 2019-12-18 22:30 | NUR ---
NOTIFIED ANIMAL DAMAGE CONTROL AGENT RODGER ABOUT LOW BLOOD PRESSURE. NEW ORDER TO TRANSFER TO [facility]
--- NOTE | 2019-12-18 22:40 | NUR ---
SPOKE TO DR JOHNSON WHO RISK LEAD FOR DR QUINTERO ABOUT PATIENT'S LOW BP. MD ADVISED TO CALL DIRECTOR IT FOR ORDER
--- NOTE | 2019-12-18 23:20 | NUR ---
TRANSFERRED PATIENT TO [facility]. BLOOD IS TRANSFUSING AT THIS TIME
--- NOTE | 2019-12-18 23:25 | NUR ---
reports received from Traci RN, patient is on blood transfusion going on, almost done and one more unit after this time, also she reported hematuria and Gibson need to be irrigated every 4 hr. vitals checked, patient is resting but open eyes with stimulus. will continue to monitor.
[2019-12-19] VITALS (10 sets, daily range): BP systolic 80–101; BP diastolic 49–68
[2019-12-19] MEDS ORDERED: SODIUM CHLORIDE 0.9% 250ML 250 ML ONE (00:40)
--- NOTE | 2019-12-19 00:57 | NUR ---
called and spoke to dr Knott, made him aware that patient blood pressure has been on 80s and 90s. also he is aware that Lasix IV after the last blood transfusion has been held.
[2019-12-19] MEDS: FUROSEMIDE INJ 10 MG/ML 2 ML VIAL IV PRN (03:40)
[2019-12-19] MEDS: ALBUMIN 25% 12.5GM 50ML 50 ML IV SCH ×4 (04:04→23:24)
[2019-12-19 05:06] LABS: BASOPHILS % 0.8 % (0.0-1.0); EOSINOPHILS # (AUTO) 0.2 (0.0-0.4); EOSINOPHILS % 3.9 % (0.0-6.0); HEMOGLOBIN 9.5 g/dL (12.0-16.0); LYMPHOCYTES # (AUTO) 1.2 (1.0-3.2); LYMPHOCYTES % 30.8 % (18.0-39.1); MEAN CORPUSCULAR HEMOGLOBIN 29.2 pg (28-32); MEAN CORPUSCULAR HGB CONC 30.6 g/dL (31-35); MEAN CORPUSCULAR VOLUME 95.4 fL (81-99); MONOCYTES # (AUTO) 0.6 (0.2-0.8); MONOCYTES % 15.9 % (4.4-11.3); NEUTROPHILS # (AUTO) 1.9 (2.1-6.9); NEUTROPHILS % 48.3 % (38.7-80.0); PLATELET COUNT 60 x10e3/uL (140-360); RED BLOOD COUNT 3.25 x10e6/uL (3.6-5.1); RED CELL DISTRIBUTION WIDTH 15.9 % (11.7-14.4)
[2019-12-19 05:29] LABS: ALBUMIN 2.3 g/dL (3.5-5.0); ALBUMIN/GLOBULIN RATIO 0.6 (0.8-2.0); ANION GAP 15.4 mmol/L (8-16); CALCIUM 8.3 mg/dL (8.4-10.2); CREATININE, SERUM 3.24 mg/dL (0.57-1.11); MAGNESIUM 2.6 MG/DL (1.3-2.1); POTASSIUM 4.4 mmol/L (3.5-5.1)
[2019-12-19] MEDS: LEVOTHYROXINE SODIUM 100 MCG TAB PO SCH (05:57)
[2019-12-19] MEDS: SUCRALFATE 1 GM TAB PO SCH ×4 (08:14→20:58)
[2019-12-19] MEDS: FAMOTIDINE 20 MG TAB PO SCH ×2 (08:14→16:30)
--- NOTE | 2019-12-19 08:34 | NUR ---
Patient was transferred to ICU last night with very low BP. Received units of blood. Since patient was transferred to a higher level of care, physical therapy will hold services until patient is stable and MD orders new consult. Thank you. Addendum: 12/19/19 at 0835 by Lidya Valiente PT Amended: Links added.
[2019-12-19] MEDS: DOCUSATE SODIUM 100 MG CAP PO SCH ×2 (09:36→18:11)
[2019-12-19] MEDS: GABAPENTIN 300 MG CAP PO SCH ×2 (09:36→18:20)
[2019-12-19] MEDS: MIDODRINE HCL 5 MG TABLET PO SCH ×3 (09:36→18:11)
[2019-12-19] MEDS: FUROSEMIDE INJ 10 MG/ML 4 ML VIAL IV SCH ×3 (09:52→23:09)
--- NOTE | 2019-12-19 12:13 | Progress Note ---
DATE: SUBJECTIVE: The patient is seen and evaluated. Available labs and notes reviewed. Discussed with the nurse. The patient transferred to [facility] secondary to hypotensive events and not being able to stay up and being weak in general. REVIEW OF SYSTEMS: The patient states that she is fine, but to me seems like she is weak and unable to keep her eyes open, but seems to be alert and oriented maybe x2. PHYSICAL EXAMINATION: VITAL SIGNS: Temperature is 98.3, pulse 65, respiration 14, and blood pressure 80/53. GENERAL: Comfortable in bed, seems to be alert and oriented x2, but weak, no acute distress. CV: S1 and S2. CHEST: Equal expansion. Decreased breath sounds. ABDOMEN: Soft and nontender. HEENT: Moist. No pallor. No JVD. EXTREMITIES: Bilateral AKA with the surgical site on both seen and no obvious acute finding. No significant erythema. There is no drainage. : The patient remains with suprapubic cath. The Gibson cath still with some bloody urine, however, improved the color of the urine. MEDICATIONS: Medication list reviewed and from Infectious Disease point of view, the patient is on Merrem. LABORATORY STUDIES: Sodium 130, potassium 4.4, and creatinine 3.24. White blood cells 3.89, hemoglobin 9.5, and platelet 60. Serology; coronavirus PCR 12/14, not detected. MICROBIOLOGY: Blood culture one set positive Gram stain for gram-positive cocci with culture pending and another set of blood culture is negative 72 hours. Urine culture showed gram-negative jossue, identification and sensitivities still pending. RADIOLOGY STUDIES: Chest x-ray showed cardiomegaly with mild pulmonary interstitial edema and loculated small pleural effusion, which was noted by Pulmonology and no plans for that. ASSESSMENT AND PLAN: This is a 54-year-old female, complicated past medical history including placement of suprapubic catheter, came with hematuria. Hematuria improved, however, there is still some bleeding. Urine culture is positive. Getting treatment for urinary tract infection. Pending urine culture identification and sensitivity. Urine showed gram-negative jossue. Blood culture as mentioned above, one is clean and one is positive on the Gram stain with the identification and culture sensitivity pending. The patient is weak and hypotensive last night, transferred to [facility]. Seems to be alert and oriented x2. Urology notes reviewed. The patient most likely need removal plus or minus replacement of the stent as mentioned by Urology. We will continue with antibiotics. Monitor the patient clinically and follow up with the labs. Follow up with the final cultures and sensitivity. Other medical conditions include: 1. Jiyzy-lx-cmlgone renal disease and renal failure. 2. Chronic pain syndrome. 3. Peripheral vascular disease, status was bilateral above-knee amputation with wounds healing without obvious complications. 4. Debility. 5. Overall, very ill. Discussed with Dr. Black in details. Overall with guarded prognosis. Continue monitor the patient clinically. Follow up with the labs. Please refer to chart for more information. Dictated by Jules Zavala) CHRIS Miner Vilma Black MD /MODL /[id number]
[2019-12-19] MEDS: PIPER-TAZ 3.375 GM 50 ML IV SCH ×2 (13:06→18:21)
--- NOTE | 2019-12-19 14:54 | Progress Note ---
DATE: 12/19/2019 Renal Progress Note SUBJECTIVE: The patient has been transferred to [facility] secondary to low blood pressures overnight. The patient received at least 4 units PRBCs, 1 unit platelets yesterday and is in the process of receiving one more unit of platelets today. Appears somewhat short of breath. The patient's Gibson catheter has urine that is clearing up. Has been getting intermittent bladder irrigation by Urology. Sodium slightly better today at 130, BUN 61, creatinine 3.24, which are both improved. The patient's overall breathing has somewhat improved. Has some shortness of breath. No nausea, no vomiting. No fever at this time. OBJECTIVE: VITAL SIGNS: Have been noted. Blood pressures are in the 80s/50s, 65 pulse. The patient is afebrile. LUNGS: Rales bilateral in the lung quinones. CARDIOVASCULAR: S1, S2. No rub. ABDOMEN: Soft. Positive bowel sounds. EXTREMITIES: No edema. LABORATORY DATA: As follows; sodium 130, potassium 4.4, BUN is 61, and creatinine is 3.2, phosphorus is 5.3, magnesium is 2.6. IMPRESSION AND PLAN: 1. Acute kidney injury on chronic kidney disease stage 4. Continues to improve the BUN and creatinine. Continue IV diuresis with Lasix. Increase Lasix 40 mg IV q.8 hours and continue diuresis. Repeat labs in the morning. 2. Hypertension/hypotension. Leave off all blood pressure medications. Continue with IV albumin infusion. We will increase midodrine to 5 mg three times a day. 3. Congestive heart failure exacerbation. Continue IV Lasix, increased to 40 mg IV q.8 hours. 4. Anemia, likely secondary to gross hematuria from dislodged stent. Plan would be per Urology. The patient is getting PRBCs and platelets. Thank you once again. MD LOUISE Bowman/MODL /[id number]
--- NOTE | 2019-12-19 15:50 | Progress Note ---
DATE: SUBJECTIVE: The patient was transferred to the [facility] last night because of worsening somnolence and borderline blood pressure. She has no fever. She is somnolent, but arousable. PHYSICAL EXAMINATION: VITAL SIGNS: Blood pressure is 101/58 and the pulse is 67. Saturation is 98%. HEENT: Shows no facial swelling or erythema. CARDIAC: Reveals regular rate and rhythm with normal S1 and S2. LUNGS: Auscultation of lungs reveals decreased breath sounds at the bases. There is no wheezing. ABDOMEN: Soft. There is some ascites. There is no rebound or guarding. EXTREMITIES: Shows bilateral kwgwp-xpj-dguu amputations. LABORATORY DATA: White blood cell count is 3.89 and the hemoglobin 9.5. The platelet count is 60. The BUN to creatinine ratio is 61 to 3.24 and the sodium is 130. IMPRESSION: 1. Ttrff-ym-mmriudh kidney injury. 2. Cirrhosis. 3. Hepatitis C. 4. Peripheral vascular disease leading to bilateral kzuau-lzb-ascz amputations. 5. Hematuria. 6. Dislodged ureteral stent. 7. Anemia. 8. Thrombocytopenia. PLAN: 1. Continue current antibiotics. 2. Continue current regimen for cirrhosis. 3. Wound care. 4. Stent exchanges plan by Urology. Dalton Dill MD [facility]/KENAN /[id number]
--- NOTE | 2019-12-19 18:00 | NUR ---
Patient's POA called Mrs Paredes Luis Alberto she would like for attending to call her and let inform her of the plan of care in terms of when the supra pubic stent will be changed.
[2019-12-19] MEDS: COLLAGENASE 5 GM TUBE TOP SCH (18:08)
--- NOTE | 2019-12-19 19:00 | NUR ---
Handoff report to oncoming nurse made aware patient POA Mrs. Lena Sahu would like for attending doctor to call and inform her the plan of care in terms when they will be changing the stent.
[2019-12-19] MEDS: MIRTAZAPINE 15 MG TAB PO SCH (20:58)
[2019-12-20] VITALS (8 sets, daily range): BP systolic 93–105; BP diastolic 56–77
[2019-12-20] MEDS: PIPER-TAZ 3.375 GM 50 ML IV SCH ×5 (00:39→23:02)
[2019-12-20 05:30] LABS: BASOPHILS % 0.4 % (0.0-1.0); EOSINOPHILS # (AUTO) 0.2 (0.0-0.4); EOSINOPHILS % 4.1 % (0.0-6.0); HEMATOCRIT 30.5 % (34.2-44.1); HEMOGLOBIN 9.4 g/dL (12.0-16.0); LYMPHOCYTES # (AUTO) 0.9 (1.0-3.2); LYMPHOCYTES % 20.1 % (18.0-39.1); MEAN CORPUSCULAR HEMOGLOBIN 28.7 pg (28-32); MEAN CORPUSCULAR HGB CONC 30.8 g/dL (31-35); MONOCYTES # (AUTO) 0.6 (0.2-0.8); MONOCYTES % 13.5 % (4.4-11.3); NEUTROPHILS # (AUTO) 2.9 (2.1-6.9); NEUTROPHILS % 61.5 % (38.7-80.0); PLATELET COUNT 60 x10e3/uL (140-360); RED BLOOD COUNT 3.28 x10e6/uL (3.6-5.1); RED CELL DISTRIBUTION WIDTH 15.9 % (11.7-14.4)
[2019-12-20] MEDS: LEVOTHYROXINE SODIUM 100 MCG TAB PO SCH (05:30)
[2019-12-20] MEDS: FUROSEMIDE INJ 10 MG/ML 4 ML VIAL IV SCH ×3 (05:43→21:25)
[2019-12-20 05:46] LABS: INR 1.06; PROTHROMBIN TIME 14.5 seconds (11.9-14.5)
[2019-12-20 05:47] LABS: PARTIAL THROMBOPLASTIN TIME 47.9 seconds (23.8-35.5)
[2019-12-20 06:05] LABS: ALBUMIN 2.6 g/dL (3.5-5.0); ALBUMIN/GLOBULIN RATIO 0.7 (0.8-2.0); ANION GAP 14.9 mmol/L (8-16); CALCIUM 8.3 mg/dL (8.4-10.2); CREATININE, SERUM 3.15 mg/dL (0.57-1.11); POTASSIUM 3.9 mmol/L (3.5-5.1)
--- NOTE | 2019-12-20 06:30 | NUR ---
patient is more alert, answer simple questions coherently, no acute distress noted. blood sugar at this time is 79; will hold insulin drip for an hour. will check again at 07:30 am.
--- NOTE | 2019-12-20 07:01 | Diagnostic Imaging Report ---
EXAMINATION: CHEST SINGLE (PORTABLE) COMPARISON: Chest x-ray 12/17/2019 INDICATION: ^CHF ^[id number] ^[id number] DISCUSSION: Frontal view of the chest obtained at 0618 hours. HEART AND MEDIASTINUM: Stable cardiomegaly LINES: Right midline catheter remains in the right axilla. LUNGS/PLEURA: Multifocal airspace opacities have developed. No interstitial edema. Vascular markings are prominent. No large effusions or pneumothorax. BONES AND SOFT TISSUES: Stable chronic fracture deformity of the right clavicle. The soft tissues are normal. IMPRESSION: New pulmonary infiltrates suggestive of pulmonary edema or pneumonia in the appropriate clinical setting. Stable cardiomegaly. Mild vascular congestion. Signed by: Dr. Baltazar Carrasquillo MD on 12/20/2019 6:58 AM
[2019-12-20] MEDS: FAMOTIDINE 20 MG TAB PO SCH ×2 (07:30→16:30)
[2019-12-20] MEDS: DOCUSATE SODIUM 100 MG CAP PO SCH ×2 (08:50→17:49)
[2019-12-20] MEDS: COLLAGENASE 5 GM TUBE TOP SCH (08:50)
[2019-12-20] MEDS: MIDODRINE HCL 5 MG TABLET PO SCH ×3 (08:50→17:49)
[2019-12-20] MEDS: SUCRALFATE 1 GM TAB PO SCH ×4 (08:50→21:25)
[2019-12-20] MEDS: GABAPENTIN 300 MG CAP PO SCH ×2 (08:50→17:49)
--- NOTE | 2019-12-20 10:54 | Progress Note ---
DATE: SUBJECTIVE: The patient is seen and evaluated. Available labs and notes reviewed. Discussed with the nurse. REVIEW OF SYSTEMS: No nausea, vomiting, fever, chills, chest pain, shortness of breath, headache, or rash. Pain is controlled. PHYSICAL EXAMINATION: VITAL SIGNS: Temperature 98.6, pulse 55, respiration 19, blood pressure 100/56. GENERAL: Alert and oriented, very pleasant, no acute distress. CV: S1, S2. CHEST: Equal expansion. Clear to auscultation. No acute distress. ABDOMEN: Soft, obese, nontender. HEENT: Moist. No pallor. No JVD. EXTREMITIES: Bilateral AKA. Surgical site clean, dry, intact with mervat. No erythema or tension on the surgical site. : Suprapubic catheter noted with hematuria. MEDICATIONS: Medication list reviewed. As far as Infectious Disease point of view, the patient is on Zosyn. LABORATORY STUDIES: White count 4.67, hemoglobin 9.4, platelet 60 stable from yesterday. Sodium 135, potassium 3.9, creatinine 3.15. Serology: Coronavirus 12/15/2019 is negative. MICROBIOLOGY: Urine showed Pseudomonas, less than 10,000 CFU/mL, sensitivity noted. Blood culture one set is negative, the other set is coag-negative staph. RADIOLOGY STUDIES: Chest x-ray from today showed new pulmonary infiltrates suggestive of pulmonary edema or pneumonia in the appropriate clinical setting, stable cardiomegaly, mild vascular congestion. ASSESSMENT AND PLAN: A 54-year-old female, very pleasant, came with hematuria. The patient with a suprapubic catheter. Radiology studies suggested dislodged stent. Urology on the case. The patient may end up getting stent removal plus and minus replacement. She is still with hematuria. Urine culture showed Pseudomonas sensitivity noted that was resistant to Merrem. Discussed with Internal Medicine. The patient switched to Zosyn yesterday. We will continue with antibiotics at this time and await Urology decision and possible OR. 1. Chronic kidney disease. 2. Hepatic cirrhosis. 3. Hepatitis C. 4. Hypotensive events. The patient was transferred downstairs secondary to hypotensive events. Blood pressure has improved, clinically in no acute distress. Discussed with Dr. Black in detail. Please refer to chart for more information. Dictated by Jules Miner PA-C (Al) MD [facility]/KENAN /[id number]
--- NOTE | 2019-12-20 13:31 | Progress Note ---
DATE: SUBJECTIVE: The patient required additional packed red blood cells. Her stent exchange is on hold because of hematuria. She still has some intermittent confusion. PHYSICAL EXAMINATION: VITAL SIGNS: The blood pressure is 93/60 and saturation is 100% on 2 L. The pulse is 61 and the respiratory rate is 16. HEENT: Shows no facial swelling or erythema. CARDIAC: Reveals regular rate and rhythm with normal S1 and S2. LUNGS: Auscultation of lungs reveals clear breath sounds bilaterally. There is no wheezing. ABDOMEN: Soft and nontender. There is no rebound or guarding. EXTREMITIES: Shows no leg edema or calf tenderness. The patient has bilateral AKAs. LABORATORY DATA: BUN to creatinine ratio is 61 to 3.15. Other electrolytes are within normal limits. Albumin is 2.6. The white blood cell count is 4.6 and the hemoglobin is 9.4. The platelet count is 60. IMPRESSION: 1. Ekmso-pt-cxnybyn kidney injury. 2. Anemia secondary to acute blood loss. 3. Hematuria. 4. Hepatitis C and cirrhosis. 5. Thrombocytopenia. 6. Severe peripheral vascular disease leading to bilateral fikdl-rfb-tjsq amputations. PLAN: 1. Continue to monitor blood counts and hematuria. 2. Stent exchange in the ureter. 3. Continue to monitor creatinine. 4. Continue current regimen for cirrhosis. Dalton Dill MD [facility]/MODL /[id number]
--- NOTE | 2019-12-20 14:36 | NUR ---
per Caroline in blood bank, Platelets are not ready at this time, will notify when available
--- NOTE | 2019-12-20 15:55 | Progress Note ---
DATE: 12/20/2019 SUBJECTIVE: The patient is followed for acute kidney injury on chronic kidney disease stage 4. Continues to improve her kidney function with improved diuresis and with improvement of CHF exacerbation. Chest x-ray from today did show more infiltrates. However, the patient said that Lasix was increased yesterday. The patient is diuresing well. Sodium has also come up. The patient is not desaturating at this time. I expect that the chest x-ray and followup visits will be better. If not better, than patient may require Lasix drip. Currently, no nausea, no vomiting. Shortness of breath has improved. OBJECTIVE: VITAL SIGNS: Vital signs are better after increasing the midodrine dose. The patient's last blood pressures are in 90s to low 100s/50s, pulse 55 to 61, afebrile. LUNGS: Rales at the bases bilaterally. CARDIOVASCULAR: S1, S2. No rub. ABDOMEN: Soft. Positive bowel sounds. Nontender. EXTREMITIES: No edema over stumps. LABORATORY DATA: Sodium 135, potassium 3.9, BUN is 61, and creatinine 3.15, and calcium 8.3. IMPRESSION AND PLAN: 1. Acute kidney injury on chronic kidney disease stage 4. We will continue to monitor kidney function. No current urgent need for dialysis. Continue IV diuresis with Lasix. Continue midodrine to support blood pressure. 2. Hypotension, continue midodrine 5 mg three times a day. 3. Fluid overload/congestive heart failure exacerbation, continue Lasix 40 mg IV q.8 hours. We will do a followup chest x-ray in a couple of days. If has continued pulmonary edema, may switch to Lasix drip from Lasix q.8 hours. Currently, the patient is not desaturating and appears to be comfortable on 2 L nasal cannula. Gross hematuria secondary to dislodged ureteral stent. Urology is following. The patient has been receiving blood products including PRBCs and platelets. Kirby Hammond MD /MODL /[id number]
--- NOTE | 2019-12-20 19:43 | NUR ---
Report received from Abiola Mart RN.
[2019-12-20] MEDS ORDERED: SODIUM CHLORIDE 0.9% 250ML 250 ML ONE (20:39)
[2019-12-20] MEDS: MIRTAZAPINE 15 MG TAB PO SCH (21:25)
[2019-12-21] VITALS (10 sets, daily range): BP systolic 84–121; BP diastolic 49–90
--- NOTE | 2019-12-21 01:45 | NUR ---
CHG bed bath completed.
[2019-12-21 05:02] LABS: BASOPHILS % 0.4 % (0.0-1.0); EOSINOPHILS # (AUTO) 0.2 (0.0-0.4); EOSINOPHILS % 4.9 % (0.0-6.0); HEMATOCRIT 29.9 % (34.2-44.1); HEMOGLOBIN 9.2 g/dL (12.0-16.0); LYMPHOCYTES # (AUTO) 1.2 (1.0-3.2); LYMPHOCYTES % 23.5 % (18.0-39.1); MEAN CORPUSCULAR HEMOGLOBIN 28.7 pg (28-32); MEAN CORPUSCULAR HGB CONC 30.8 g/dL (31-35); MEAN CORPUSCULAR VOLUME 93.1 fL (81-99); MONOCYTES # (AUTO) 0.6 (0.2-0.8); MONOCYTES % 12.8 % (4.4-11.3); NEUTROPHILS # (AUTO) 2.9 (2.1-6.9); NEUTROPHILS % 57.8 % (38.7-80.0); PLATELET COUNT 63 x10e3/uL (140-360); RED BLOOD COUNT 3.21 x10e6/uL (3.6-5.1); RED CELL DISTRIBUTION WIDTH 16.2 % (11.7-14.4)
[2019-12-21 05:14] LABS: INR 1.13; PROTHROMBIN TIME 15.2 seconds (11.9-14.5)
[2019-12-21 05:15] LABS: PARTIAL THROMBOPLASTIN TIME 45.6 seconds (23.8-35.5)
[2019-12-21] MEDS: LEVOTHYROXINE SODIUM 100 MCG TAB PO SCH (05:21)
[2019-12-21 05:29] LABS: ALBUMIN 2.3 g/dL (3.5-5.0); ALBUMIN/GLOBULIN RATIO 0.6 (0.8-2.0); ANION GAP 13.8 mmol/L (8-16); CALCIUM 8.5 mg/dL (8.4-10.2); CREATININE, SERUM 3.18 mg/dL (0.57-1.11); POTASSIUM 3.8 mmol/L (3.5-5.1)
[2019-12-21 05:45] LABS: MAGNESIUM 2.3 MG/DL (1.3-2.1); PHOSPHORUS 4.5 MG/DL (2.3-4.7)
[2019-12-21] MEDS: PIPER-TAZ 3.375 GM 50 ML IV SCH (05:59)
[2019-12-21] MEDS: FUROSEMIDE INJ 10 MG/ML 4 ML VIAL IV SCH ×3 (05:59→22:00)
[2019-12-21] MEDS: FAMOTIDINE 20 MG TAB PO SCH ×2 (07:30→16:30)
[2019-12-21] MEDS: SUCRALFATE 1 GM TAB PO SCH ×4 (07:30→21:30)
[2019-12-21] MEDS: MIDODRINE HCL 5 MG TABLET PO SCH ×3 (08:00→16:00)
[2019-12-21] MEDS: GABAPENTIN 300 MG CAP PO SCH ×2 (08:41→17:00)
[2019-12-21] MEDS: DOCUSATE SODIUM 100 MG CAP PO SCH ×2 (08:41→17:00)
--- NOTE | 2019-12-21 08:41 | NUR ---
pt sleeping, not arousing. MD rounded and aware. vs stable though hypotensive.
[2019-12-21] MEDS: COLLAGENASE 5 GM TUBE TOP SCH (09:48)
--- NOTE | 2019-12-21 10:43 | Progress Note ---
DATE: SUBJECTIVE: The patient is seen and evaluated. Available labs and notes reviewed. Discussed with the nurse. The patient is sleepy this morning, awakened, talked to her why she is so sleepy, she is not sure why, but she seems weak and sleepy today but seems to be alert and oriented and responds appropriately. PHYSICAL EXAMINATION: VITAL SIGNS: Temperature 97.8, pulse 72, respirations 16, blood pressure 84/49. GENERAL: Comfortable in bed. Alert and oriented, sleepy, wakes up easily. No acute distress. No new complaints per my discussion with the nurse. CV: S1, S2. CHEST: Equal expansion. Decreased breath sounds. No acute distress. ABDOMEN: Soft, nontender. Bowel sounds positive. HEENT: Moist. No pallor. No JVD. EXTREMITIES: Bilateral AKA on local care. No acute finding. : The patient remains with suprapubic cath and hematuria. MEDICATIONS: Medication list reviewed. Antibiotic changed to Azactam. LABORATORY STUDIES: White count of 4.93, hemoglobin 9.2, platelet 63. MICROBIOLOGY: Blood culture, coag-negative Staph. Urine culture Pseudomonas aeruginosa, culture sensitivity reviewed, which is sensitive to Zosyn, amikacin, tobramycin, meropenem, gentamicin, and Azactam. RADIOLOGY STUDIES: Chest x-ray from yesterday showed new pulmonary infiltrates and pulmonary edema or pneumonia in appropriate clinical setting. However, the patient is afebrile with no complaints of shortness of breath. ASSESSMENT AND PLAN: 1. A 54-year-old lady with complicated past medical history, admitted with hematuria secondary to dislodged stent. The patient is scheduled for operating room by Dr. Luna today for removal plus or minus replacement of the stent. 2. Chronic kidney disease. 3. Hepatitis C. 4. Hepatic cirrhosis. 5. Hypotensive events. 6. Anemia. 7. Debility. 8. Sleepy/drowsy today. Change antibiotics to Azactam. Renal noted. Fluid overload on Lasix 40 q.8 and midodrine for hypotension 5 mg t.i.d. Continued to monitor patient clinically. Follow with the labs and await surgery today. Further management of this patient is based on daily findings on laboratory and physical examination. Overall guarded prognosis. Discussed with Dr. Black in detail. Please refer to chart for more information. Dictated by Jules Miner PA-C (Al) MD [facility]/KENAN /[id number]
--- NOTE | 2019-12-21 11:49 | Progress Note ---
DATE: 12/21/2019 Renal Progress Note SUBJECTIVE: Followed for acute kidney injury on chronic kidney disease stage 4, appears to have stabilized around with CKD stage 4 with a creatinine around 3.2 mg/dL. The patient is nonoliguric, however, has gross hematuria. Still awaiting urological intervention. No nausea, no vomiting. Some shortness of breath this morning. OBJECTIVE: VITAL SIGNS: Noted. Blood pressures are labile, however, ranges on average around high 90s to low 100s over 50s, 72 pulse, afebrile, 16 respirations. LUNGS: Rales at the bases bilaterally. CARDIOVASCULAR: S1, S2. No rub. ABDOMEN: Soft, nontender. EXTREMITIES: No edema over stumps. LABORATORY DATA: Potassium 3.8, sodium is up to 139, BUN 64, creatinine 3.18. IMPRESSION AND PLAN: 1. Acute kidney injury on chronic kidney disease stage 4. Continue IV diuresis with Lasix as outlined previously. I will continue current dose of 40 mg IV q.8 hours. Continue to monitor kidney function. No current need for dialysis. 2. Hypertension/hypotension. Continue midodrine. Blood pressures are labile and also dependent on position and where the cuff is position. 3. Anemia of chronic disease, stable hemoglobin and hematocrit, has received PRBCs. 4. Gross hematuria. Urology is following and urological intervention is still pending. Kirby Hammond MD /MODL /[id number]
[2019-12-21] MEDS: AZTREONAM 2GM/NS 100ML 100 ML IV SCH (12:44)
--- NOTE | 2019-12-21 13:30 | NUR ---
OBTAINED SIGNATURE FOR PT TO RETURN TO [facility]. FILED IN CHART AND WILL FAX CLINICALS
--- NOTE | 2019-12-21 13:45 | NUR ---
FAXED CLINICALS TO [phone], PHONE [phone]
[2019-12-21] MEDS ORDERED: IOPAMIDOL 300MG/ML 50ML INFUS..BTL IV ONE (14:03)
[2019-12-21] MEDS ORDERED: SODIUM CHLORIDE 0.9% 500ML 500 ML ONE (16:01)
[2019-12-21] MEDS: NOREPINEPHRINE INJ 4MG/4ML 8 MG in DEXTROSE 5% 250ML 242 ML IV SCH (16:45)
[2019-12-21] MEDS ORDERED: ONDANSETRON HCL INJ 2MG/ML 2ML 2 MG/ML VIAL ONE (20:08)
[2019-12-21] MEDS ORDERED: PROPOFOL IV EMULSION 10 MG/ML 20 ML VIAL ONE (20:08)
[2019-12-21] MEDS ORDERED: SEVOFLURANE INHAL SOLN 250 ML PEN BTL ONE (20:08)
[2019-12-21] MEDS ORDERED: EPHEDRINE SULFATE INJ 50 MG/ML VIAL ONE (20:08)
--- NOTE | 2019-12-21 21:26 | Progress Note ---
DATE: SUBJECTIVE: The patient went for a stent placement today. Postoperatively, the patient had some hypotension and some hematuria. She was on pressors transiently and transferred to the intensive care unit. She is now off pressors. PHYSICAL EXAMINATION: VITAL SIGNS: The patient is afebrile. The blood pressure is 94/47 and saturation is 99% on 2 L. The pulse is 82. HEENT: Shows no facial swelling or erythema. CARDIAC: Reveals regular rate and rhythm with normal S1 and S2. LUNGS: Auscultation of lungs reveals decreased breath sounds at the bases. ABDOMEN: Soft and nontender. EXTREMITIES: There are bilateral uaksy-mtz-mqbi amputations. LABORATORY DATA: White blood cell count is 4.9 and hemoglobin is 9.2. The platelet count is 63. The BUN to creatinine ratio is 64 to 3.18. Albumin is 2.3. IMPRESSION: 1. Cirrhosis and hepatitis C. 2. Hepatic encephalopathy. 3. Chronic renal failure, stage 4. 4. Peripheral vascular disease leading to bilateral vsemt-pjr-hxqn amputations. 5. Ureteral obstruction, requiring stent placement. 6. Anemia. 7. Thrombocytopenia. PLAN: 1. Continue to observe in the intensive care unit. 2. Continue current regimen for cirrhosis. 3. Await further recommendations from Urology. 4. Repeat laboratory tests tomorrow morning. Dalton Dill MD [facility]/MODL /[id number]
[2019-12-21] MEDS: MIRTAZAPINE 15 MG TAB PO SCH (21:30)
--- NOTE | 2019-12-21 23:31 | Operative Report ---
DATE OF PROCEDURE: 12/21/2019 SURGEON: Delbert Luna MD PREOPERATIVE DIAGNOSES: 1. Gross hematuria. 2. Renal failure. 3. Displaced J-stent from the left side. 4. Nephrolithiasis. 5. Chronic SP tube. 6. Urinary tract infection. POSTOPERATIVE DIAGNOSES: 1. Gross hematuria. 2. Renal failure. 3. Displaced J-stent from the left side. 4. Nephrolithiasis. 5. Chronic SP tube. 6. Urinary tract infection. 7. Gross bleeding from the left kidney. PROCEDURE PERFORMED: 1. Cystoscopy and evacuation of multiple bladder clots in the bladder. 2. Retrograde pyelogram on the right side. 3. Removal of the foreign body and double-J stent attached to the left ureter. 4. Left retrograde pyelograms under fluoroscopic control for left ureteroscopy. 5. Interpretation of x-rays. 6. Supervision of fluoroscopy, radiologist not present. 7. Change of suprapubic tube, 24-Omani 5 mL, not related to the other procedures. ADMISSION SPECIALIST: None. ANESTHESIA: General. CLINICAL INDICATION NOTE: This is a 54-year-old patient was brought for reassessment of gross hematuria. The patient does have low platelets and she did receive platelets as well as 3 units of blood before the procedure. The patient has a long-standing multiple medical problem including left renal stones, history of left renal perforation with perinephric abscesses and she did have a double-J stent in place, the gross hematuria started, the stent was displaced down. The patient was brought for reassessment and possible change of the stent to the left side. Procedure was discussed with the patient. DESCRIPTION OF PROCEDURE AND FINDING: After proper level of anesthesia was achieved, she was placed in the modified lithotomy position, if allowed by the fact she has bilateral AKA. She was prepped and draped in a sterile fashion. The suprapubic tube was closed with a clamp for the procedure. Urethra inspected, appeared to be unremarkable. Bladder contained a very large amount of clots. They were gradually evacuated to almost clear. At that point, it was possible to identify this foreign body. It was completely removed from the left side and blood was coming her from the left orifice. Right retrograde is unremarkable. The stent was removed. Open-end catheter was inserted to the left side and retrograde pyelogram demonstrating multiple clot along the ureter as well as in the kidney itself. Flexible ureteroscopy was done. A very active bleeding was noticed. It was not possible to identify any specific source of the bleeding in the kidney. Therefore, a wire was kept in place and a 7-Omani 24 cm long double-J stent was properly positioned on the left side. Following this, the bladder was again irrigated. It seems that the bleeding is somewhat slowed. The suprapubic tube was removed and replaced with a 24-Omani 5 mL new Gibson catheter. The patient tolerated the procedure well and she was transferred in satisfactory condition to the recovery room. The bleeding that she had was not closed during because of the procedure. The next steps, she may require an angiography and embolization if any visible point of bleeding is identified. Delbert Luna MD [facility]/MODL /[id number] cc: Gray Knott MD
[2019-12-22] VITALS (15 sets, daily range): BP systolic 86–126; BP diastolic 42–79
--- NOTE | 2019-12-22 01:57 | NUR ---
Patient becoming agitated when attempts to turn patient made. Several attempts made. Pt educated on importance of turning to prevent further wounds/skin breakdown, etc. Pt refused.
[2019-12-22 05:20] LABS: BASOPHILS % 0.6 % (0.0-1.0); EOSINOPHILS # (AUTO) 0.1 (0.0-0.4); EOSINOPHILS % 1.4 % (0.0-6.0); HEMATOCRIT 27.7 % (34.2-44.1); HEMOGLOBIN 8.5 g/dL (12.0-16.0); LYMPHOCYTES # (AUTO) 0.9 (1.0-3.2); LYMPHOCYTES % 18.3 % (18.0-39.1); MEAN CORPUSCULAR HEMOGLOBIN 29.3 pg (28-32); MEAN CORPUSCULAR HGB CONC 30.7 g/dL (31-35); MEAN CORPUSCULAR VOLUME 95.5 fL (81-99); MONOCYTES # (AUTO) 0.5 (0.2-0.8); MONOCYTES % 10.9 % (4.4-11.3); NEUTROPHILS # (AUTO) 3.4 (2.1-6.9); NEUTROPHILS % 68.4 % (38.7-80.0); PLATELET COUNT 51 x10e3/uL (140-360); RED CELL DISTRIBUTION WIDTH 15.8 % (11.7-14.4)
[2019-12-22 05:47] LABS: ALBUMIN/GLOBULIN RATIO 0.6 (0.8-2.0); ANION GAP 14.8 mmol/L (8-16); CALCIUM 8.2 mg/dL (8.4-10.2); CREATININE, SERUM 2.99 mg/dL (0.57-1.11); POTASSIUM 3.8 mmol/L (3.5-5.1)
[2019-12-22] MEDS: FUROSEMIDE INJ 10 MG/ML 4 ML VIAL IV SCH ×3 (06:00→22:00)
[2019-12-22] MEDS: LEVOTHYROXINE SODIUM 100 MCG TAB PO SCH (06:30)
--- NOTE | 2019-12-22 07:12 | NUR ---
Called lab x 2 during shift regarding 1 PRBC to be given. Per lab, blood bank has shortage and there is no blood matching patient so unable to transfuse blood ordered. Dr. Dill aware. Arturo RN, oncmatthew RN, notified. Dr. Dill also notified of LUE swollen,reddened. Order for duplex received.
[2019-12-22] MEDS: FAMOTIDINE 20 MG TAB PO SCH ×2 (07:30→16:30)
[2019-12-22] MEDS: SUCRALFATE 1 GM TAB PO SCH ×4 (09:46→20:17)
[2019-12-22] MEDS: MIDODRINE HCL 5 MG TABLET PO SCH ×3 (09:46→16:00)
[2019-12-22] MEDS: COLLAGENASE 5 GM TUBE TOP SCH (09:46)
[2019-12-22] MEDS: GABAPENTIN 300 MG CAP PO SCH ×2 (09:46→17:00)
[2019-12-22] MEDS: DOCUSATE SODIUM 100 MG CAP PO SCH ×2 (09:46→17:00)
--- NOTE | 2019-12-22 11:59 | Progress Note ---
DATE: 12/22/2019 SUBJECTIVE: The patient is followed for acute kidney injury on chronic kidney disease, stage 4. Kidney function continues to improve. The patient postoperatively after stent replacement still having some gross hematuria. No nausea, no vomiting, no shortness of breath. OBJECTIVE: VITAL SIGNS: Have been noted. Blood pressures are labile; however, mostly in the high 90s to low 100s mmHg systolic. BP ranging 90s to 100s over 50s, pulse 90s, and afebrile. LUNGS: Mostly clear to auscultation bilaterally. CARDIOVASCULAR: S1, S2. No rub. ABDOMEN: Soft. Positive bowel sounds. EXTREMITIES: No edema over the stumps. LABORATORY WORKUP: Today sodium is 140, potassium 3.8, chloride 101, carbon dioxide of 28, BUN 57, creatinine is 2.99, and calcium is 8.2. IMPRESSION AND PLAN: 1. Acute kidney injury on chronic kidney disease, stage 4. Continue to monitor on IV Lasix. No current IV fluids are indicated. We would recommend to keep off IV fluids to prevent fluid overload. 2. Hypertension/hypotension. Continue low-dose midodrine 5 mg three times a day. Leave off blood pressure medications. 3. Gross hematuria, plan for Urology. We will follow the recommendations. 4. Anemia of chronic disease, stable H and H, has received PRBCs and platelets. 5. Congestive heart failure exacerbation/fluid overload. Continue IV Lasix diuresis for now. MD LOUISE Bowman/MODL /[id number]
[2019-12-22] MEDS: NOREPINEPHRINE INJ 4MG/4ML 8 MG in DEXTROSE 5% 250ML 242 ML IV SCH (16:45)
[2019-12-22] MEDS: AZTREONAM 2GM/NS 100ML 100 ML IV SCH (16:54)
--- NOTE | 2019-12-22 19:10 | Progress Note ---
DATE: SUBJECTIVE: Her blood pressure has remained stable. She is on 2 L of oxygen. PHYSICAL EXAMINATION: VITAL SIGNS: The blood pressure is 100/61, saturation is 99% on 2 L. HEENT: No facial swelling or erythema. CARDIAC: Regular rate and rhythm with normal S1, S2. LUNGS: Auscultation of lungs reveals decreased breath sounds at the bases. There is no wheezing. ABDOMEN: Soft, nontender. There is no rebound or guarding. EXTREMITIES: Examination of extremities shows uloio-kxm-ssvr amputations bilaterally. LABORATORY DATA: White blood cell count is 4.9 and hemoglobin is 8.5. The platelet count is 51. BUN to creatinine ratio is 57 to 2.99. Other electrolytes are within normal limits. IMPRESSION: 1. Cirrhosis and hepatitis C. 2. Chronic renal failure, stage 4. 3. Hepatic encephalopathy. 4. Ureteral obstruction requiring a stent. 5. Peripheral vascular disease, requiring bilateral drdap-nzd-zvrx amputations. 6. Anemia. 7. Thrombocytopenia. PLAN: 1. Continue to monitor BUN and creatinine. 2. Await further input from Urology. 3. Continue to monitor hepatic function. 4. Continue current regimen for cirrhosis. 5. Continue antibiotics. Dalton Dill MD [facility]/KENAN /[id number]
[2019-12-22] MEDS: MIRTAZAPINE 15 MG TAB PO SCH (20:17)
--- NOTE | 2019-12-22 22:04 | NUR ---
Dr. Dill stated OK to infuse levophed through midline if necessary.
--- NOTE | 2019-12-22 22:35 | NUR ---
Report given to Giorgio RN, RN assuming care of patient.
[2019-12-23] VITALS (12 sets, daily range): BP systolic 84–101; BP diastolic 40–64
[2019-12-23 05:24] LABS: BASOPHILS % 0.2 % (0.0-1.0); EOSINOPHILS # (AUTO) 0.2 (0.0-0.4); HEMATOCRIT 24.3 % (34.2-44.1); HEMOGLOBIN 7.5 g/dL (12.0-16.0); LYMPHOCYTES # (AUTO) 1.3 (1.0-3.2); LYMPHOCYTES % 26.8 % (18.0-39.1); MEAN CORPUSCULAR HEMOGLOBIN 29.2 pg (28-32); MEAN CORPUSCULAR HGB CONC 30.9 g/dL (31-35); MEAN CORPUSCULAR VOLUME 94.6 fL (81-99); MONOCYTES # (AUTO) 0.5 (0.2-0.8); MONOCYTES % 10.6 % (4.4-11.3); NEUTROPHILS % 59.2 % (38.7-80.0); PLATELET COUNT 54 x10e3/uL (140-360); RED BLOOD COUNT 2.57 x10e6/uL (3.6-5.1); RED CELL DISTRIBUTION WIDTH 16.2 % (11.7-14.4)
[2019-12-23 05:59] LABS: ALBUMIN 1.9 g/dL (3.5-5.0); ALBUMIN/GLOBULIN RATIO 0.6 (0.8-2.0); ANION GAP 14.9 mmol/L (8-16); CREATININE, SERUM 2.88 mg/dL (0.57-1.11); POTASSIUM 3.9 mmol/L (3.5-5.1)
[2019-12-23] MEDS: FUROSEMIDE INJ 10 MG/ML 4 ML VIAL IV SCH ×3 (06:00→22:20)
[2019-12-23] MEDS: LEVOTHYROXINE SODIUM 100 MCG TAB PO SCH (06:00)
--- NOTE | 2019-12-23 06:45 | Diagnostic Imaging Report ---
EXAMINATION: CHEST SINGLE (PORTABLE) COMPARISON: Chest x-ray 12/20/2019 INDICATION: Shortness of breath, CHF ^CHF ^[id number] ^[id number] DISCUSSION: Frontal view of the chest obtained at 0611 hours. HEART AND MEDIASTINUM: Stable cardiomegaly and central vascular prominence LINES: Right midline catheter remains in the right axilla. LUNGS/PLEURA: Diffuse hyperinflation suggestive of COPD. Improved aeration of the right lower lobe. Increasing retrocardiac airspace opacity. Blunting of the lateral costophrenic angles, left greater than right. No pneumothorax. BONES AND SOFT TISSUES: Healed fracture deformity of the mid right clavicle. The soft tissues are normal. IMPRESSION: 1. Improved aeration of the right lower lobe. Increasing retrocardiac airspace opacity suggestive of atelectasis or infiltrate with small pleural effusion. Trace right pleural effusion. 2. Stable cardiomegaly and pulmonary venous congestion. COPD. Signed by: Dr. Baltazar Carrasquillo MD on 12/23/2019 6:41 AM
[2019-12-23] MEDS: FAMOTIDINE 20 MG TAB PO SCH ×2 (07:30→16:30)
[2019-12-23] MEDS: DOCUSATE SODIUM 100 MG CAP PO SCH ×2 (09:02→17:51)
[2019-12-23] MEDS: GABAPENTIN 300 MG CAP PO SCH ×2 (09:02→17:51)
[2019-12-23] MEDS: MIDODRINE HCL 5 MG TABLET PO SCH ×3 (09:02→17:51)
[2019-12-23] MEDS: COLLAGENASE 5 GM TUBE TOP SCH (09:02)
[2019-12-23] MEDS: SUCRALFATE 1 GM TAB PO SCH ×4 (09:02→20:34)
--- NOTE | 2019-12-23 15:09 | NUR ---
Nutrition Intervention Note RD Recommendation(s) for Physician: -Continue current diet as ordered -Recommend Damien BID as well as zinc and vitamin C to promote wound healing Plan of Care: RD following, monitoring for tolerance and adequacy, oral supplement recommendation Nutrition reason for involvement: follow up RD Assessment (12/23/19) Follow up. Chart reviewed. Pt is now in the ICU. Per MD note, pt was transferred to the ICU following stent placement due to hypotension and hematuria. Pt was sleeping at time of visit; therefore, spoke to RN who reported pt is eating all of her meals. Will continue to monitor. (12/16/19) Pt is a 54 year old female admitted with anemia, hyperkalemia, and severe sepsis without septic shock. Pt reports she has been eating >50% of her meals. Pt was unsure of any recent weight changes. No N/V/D/C or chewing/swallowing issues. 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 GI: non-tender, round, distended abdomen, last recorded BM 12/19 Skin: unstageable sacro gluteal ulceration per wound care note 12/17 Labs: (12/22) BUN 61, Cr 2.88, Glu 102, Ca 8.0 (12/15) Na 128, K 5.4, Cl 93, BUN 54, Cr 3.64, Glu 84, Ca 8.3, Total Bili 2.1 Meds: colace, levothyroxine, lasix, norepinephrine, pepcid, zofran Ht: 62 inches Wt: 161 lbs (12/16) 142 lbs (12/15) Suspect weight error BMI: 29.5 kg/m2 IBW: 110 lbs Malnutrition Evaluation (12/16/19) The patient does not meet criteria for a specified degree of malnutrition at this time. Will re-evaluate at follow-up as appropriate. Nutrition Prescription (Diet Order): cardiac Estimated Nutritional Needs: 9069-4604 calories/day (18-20 kcal/kg CBW) Weight used: 142 lbs 77-97 g protein/day (1.2-1.5 g pro/kg CBW) Weight used: 142 lbs Diet Adequacy: Meeting calorie needs, Meeting protein needs Tolerance: Tolerating PO Diet Education Needs Assessment: Pt declined need for diet education on 12/15 Nutrition Care Level: low Nutrition Diagnosis: Increased nutrient needs related to increased demand for protein and kcal as evidenced by unstageable pressure ulcer. Goal: Patient will meet 75-100% of estimated needs by follow up Progress: goal met Interventions: -cholesterol/sodium/fat - modified diet, Commercial beverage, Multivitamin/mineral supplement therapy Monitoring/Evaluation: -Total energy intake, Total protein intake, Liquid supplement, Weight change Signed: Caroline Villasenor RD, LD
--- NOTE | 2019-12-23 15:19 | Progress Note ---
DATE: SUBJECTIVE: The patient is afebrile. Her blood pressure is stable off pressors. She is saturating 100% on 2 L. PHYSICAL EXAMINATION: VITAL SIGNS: Blood pressure is 96/46 and the respiratory rate is 21. The heart rate is 22. HEENT: No facial swelling or erythema. CARDIAC: Regular rate and rhythm with normal S1, S2. LUNGS: Auscultation of lungs reveals decreased breath sounds at the bases. ABDOMEN: Soft, nontender. There is no rebound or guarding. EXTREMITIES: Examination of the extremities shows bilateral fdevj-adi-utrr amputations. LABORATORY DATA: White blood cell count is 5 and hemoglobin is 7.5. The platelet count is 54. The BUN to creatinine ratio is 61 to 2.88. Other electrolytes are within normal limits. The chest x-ray shows some opacity in the retrocardiac space. IMPRESSION: 1. Cirrhosis and hepatitis C. 2. Chronic renal failure, stage 4. 3. Anemia. 4. Peripheral vascular disease leading to bilateral ejort-kqy-paqw amputations. 5. Thrombocytopenia. 6. Ureteral obstruction, requiring a stent. PLAN: 1. Possible transfer out of intensive care unit. 2. Continue to monitor blood counts and transfuse as needed. 3. Continue current treatment for cirrhosis. 4. Wound care. Dalton Dill MD [facility] /[id number]
--- NOTE | 2019-12-23 15:29 | Progress Note ---
DATE: 12/23/2019 SUBJECTIVE: The patient appears comfortable. Denies any shortness of breath or nausea. OBJECTIVE: VITAL SIGNS: Relatively stable. Blood pressure now 96/46, pulse 85 per minute, oxygen saturation 95% on room air. Intake and output shows -1680 mL on IV Lasix. NECK: Supple without jugular venous distention. RESPIRATORY: Bilateral symmetrical air entry. No respiratory distress. CARDIOVASCULAR: S1, S2. ABDOMEN: Nondistended. EXTREMITIES: Without pitting edema. Gibson catheter is in place. Chest x-ray reportedly improving. MEDICATIONS: Reviewed. LABORATORY DATA: Hemoglobin 7.5. BUN and creatinine stable at 61 and 2.88. Electrolytes normal. IMPRESSION: 1. Acute kidney injury, improved since admission, status post left ureteral stent change. 2. Findings of chronic kidney disease stage 4. 3. Blood pressure, supported with midodrine. 4. Anemia secondary to chronic kidney disease and recent gross hematuria. 5. Congestive heart failure, excellent response to IV Lasix. RECOMMENDATIONS: 1. Continue diuresis for now as needed for CHF. 2. Continue midodrine to support blood pressure. 3. Continue to trend renal function daily. 4. Monitor hemoglobin and transfuse for less than 7 g. Diogenes Porras MD [facility]/MODL /[id number]
[2019-12-23] MEDS: AZTREONAM 2GM/NS 100ML 100 ML IV SCH (15:51)
--- NOTE | 2019-12-23 16:31 | NUR ---
PROGRESS NOTE [id number]
[2019-12-23] MEDS: NOREPINEPHRINE INJ 4MG/4ML 8 MG in DEXTROSE 5% 250ML 242 ML IV SCH (16:45)
--- NOTE | 2019-12-23 19:10 | Progress Note ---
DATE: SUBJECTIVE: Ms. Leach is alert, comfortable, does not seem to be in acute distress. OBJECTIVE: VITAL SIGNS: Stable, currently afebrile. HEENT: She is not icteric. NECK: Supple. CHEST: Few crackles bilateral. COR: S1 and S2. No S3, S4, or murmur. ABDOMEN: Soft. Bowel sounds present. No tenderness. EXTREMITIES: No edema. SKIN: No rash. IMPRESSION: 1. Urinary tract infection, doing well from the liver cirrhosis. 2. History of hepatitis C. 3. History of chronic kidney disease stage 4 on dialysis. 4. Peripheral vascular disease status. 5. Post bilateral [id number] amputation from infection. 6. Thrombocytopenia. 7. Ureteral obstruction status post stent placement, the patient is currently on Azactam 1 g q.24 hours. We will continue while she is here in the hospital. Discharge planning is in progress when she goes to skilled care facility. She can be discharged with Hiprex 1 p.o. daily. MD TULIO Jesus/MODL /[id number]
[2019-12-23] MEDS: MIRTAZAPINE 15 MG TAB PO SCH (20:34)
[2019-12-23] MEDS: TRAZODONE HCL 50 MG TAB PO PRN (20:34)
--- NOTE | 2019-12-23 20:37 | NUR ---
hidalgo irrigation done, noted blood cloths, urine still look red.
[2019-12-24] VITALS (7 sets, daily range): BP systolic 84–102; BP diastolic 47–61
[2019-12-24 05:34] LABS: BASOPHILS % 0.3 % (0.0-1.0); EOSINOPHILS # (AUTO) 0.2 (0.0-0.4); EOSINOPHILS % 5.1 % (0.0-6.0); HEMATOCRIT 23.4 % (34.2-44.1); HEMOGLOBIN 7.3 g/dL (12.0-16.0); LYMPHOCYTES # (AUTO) 0.9 (1.0-3.2); LYMPHOCYTES % 25.2 % (18.0-39.1); MEAN CORPUSCULAR HEMOGLOBIN 29.9 pg (28-32); MEAN CORPUSCULAR HGB CONC 31.2 g/dL (31-35); MEAN CORPUSCULAR VOLUME 95.9 fL (81-99); MONOCYTES # (AUTO) 0.3 (0.2-0.8); MONOCYTES % 9.1 % (4.4-11.3); NEUTROPHILS # (AUTO) 2.1 (2.1-6.9); NEUTROPHILS % 59.7 % (38.7-80.0); PLATELET COUNT 53 x10e3/uL (140-360); RED BLOOD COUNT 2.44 x10e6/uL (3.6-5.1)
[2019-12-24 06:01] LABS: ALBUMIN 1.8 g/dL (3.5-5.0); ALBUMIN/GLOBULIN RATIO 0.5 (0.8-2.0); ANION GAP 12.8 mmol/L (8-16); CALCIUM 8.1 mg/dL (8.4-10.2); CREATININE, SERUM 2.57 mg/dL (0.57-1.11); POTASSIUM 3.8 mmol/L (3.5-5.1)
[2019-12-24] MEDS: LEVOTHYROXINE SODIUM 100 MCG TAB PO SCH (06:09)
[2019-12-24] MEDS: FUROSEMIDE INJ 10 MG/ML 4 ML VIAL IV SCH ×3 (06:36→23:58)
[2019-12-24] MEDS: FAMOTIDINE 20 MG TAB PO SCH ×2 (07:30→16:30)
[2019-12-24] MEDS: SUCRALFATE 1 GM TAB PO SCH ×4 (08:00→21:28)
[2019-12-24] MEDS: MIDODRINE HCL 5 MG TABLET PO SCH ×3 (08:00→18:25)
[2019-12-24] MEDS ORDERED: SODIUM CHLORIDE 0.9% 250ML 250 ML IV ONE (08:45)
[2019-12-24] MEDS: DOCUSATE SODIUM 100 MG CAP PO SCH ×2 (09:00→17:00)
[2019-12-24] MEDS: COLLAGENASE 5 GM TUBE TOP SCH (09:00)
[2019-12-24] MEDS: GABAPENTIN 300 MG CAP PO SCH ×2 (10:00→18:25)
[2019-12-24] MEDS: AZTREONAM 2GM/NS 100ML 100 ML IV SCH ×2 (12:00→23:58)
[2019-12-24] MEDS ORDERED: SODIUM CHLORIDE 0.9% 250ML 250 ML ONE ×2 (12:18→20:10)
--- NOTE | 2019-12-24 12:40 | NUR ---
Unable to irrigate urinary catheter. Just a trickle of output. Pt with rigid, painful abdomen. Bladder scanner demonstrated 79cc and 127cc with repeated scans. Have spoken with Dr Medina. He has ordered ultrasound abdomen to evaulate bladder fullness before giving further orders.
--- NOTE | 2019-12-24 15:00 | NUR ---
Ultrasound of abdomen demonstrates deflated urinary bladder. Pt's urine output since noon is 400cc of moderate dark urine. Irrigating as ordered. No further complications to bladder have been noted. Addendum: 12/25/19 at 0835 by Arden Simmons RN As of end of abdominal ultrasound pt was relaxed and denied any c/o's. Abdomen was soft and non tender. Denied pain and declined offer for tylenol or pain medication.
--- NOTE | 2019-12-24 15:13 | Diagnostic Imaging Report ---
ADDENDUM #1 ADDENDUM: Per discussion with urology team on 12/25/2019, the left kidney was not removed. The left kidney was not well visualized on the ultrasound study, likely secondary to atrophy. Upon further review, the left kidney is likely faintly visualized. Upon further discussion, the technologist communication worksheet meant to state that the left renal stent was removed rather then the left kidney. Signed by: Dr. Raymond Almeida MD on 12/25/2019 10:56 AM ORIGINAL REPORT EXAM: US ABDOMEN COMPLETE DATE: 12/24/2019 12:41 PM INDICATION: Blocked urinary catheter, history of ureteral stent. COMPARISON: CT abdomen/pelvis 12-16-2019. TECHNIQUE: Transverse and longitudinal brunson scale and color doppler sonographic images of the upper abdomen were obtained. FINDINGS: LIVER 18.1 cm in the right midclavicular line. Cirrhotic morphology to the liver. No visualized masses. SPLEEN 16.7 cm in maximum diameter. Normal echogenicity, no masses. GALLBLADDER Cholelithiasis without evidence of wall thickening or pericholecystic fluid. BILE DUCTS No intra nor extra-hepatic biliary dilation. Common bile duct measures 0.7 cm PANCREAS: Increased echogenicity in the visualized portions. RIGHT KIDNEY: 10.1 cm Echogenicity: Normal Collecting System: No hydronephrosis Stones: None Cyst/Mass: No evidence of solid mass. Simple appearing anechoic 1.1 cm cyst in the upper pole. LEFT KIDNEY: Status post interval left nephrectomy. BLADDER: The bladder is decompressed with Gibson catheter. VESSELS: Aorta: Visualized portions are within normal size limits Inferior Vena Cava: Visualized portions are normal Main Portal Vein: 0.9 cm, normal size with hepatopetal flow. FREE FLUID: Ascites in the upper abdomen. IMPRESSION: Status post interval left nephrectomy. No evidence of right-sided hydronephrosis or nephrolithiasis. Decompressed bladder with Gibson catheter. Hepatomegaly and cirrhotic liver with sequela of portal hypertension including splenomegaly and ascites. Cholelithiasis without evidence of cholecystitis. Borderline mild CBD dilatation measuring 0.7 cm. Suggest correlation with LFTs. If of clinical concern, MRCP may be considered for further evaluation Signed by: Dr. Raymond Almeida MD on 12/24/2019 3:10 PM
[2019-12-24] MEDS: NOREPINEPHRINE INJ 4MG/4ML 8 MG in DEXTROSE 5% 250ML 242 ML IV SCH (16:45)
--- NOTE | 2019-12-24 17:33 | NUR ---
Per Dr Medina's orders. Every other staple removed from both AKA. No complications noted.
--- NOTE | 2019-12-24 17:54 | Progress Note ---
DATE: SUBJECTIVE: Ms. Leach is alert, slightly confused. No complaints. REVIEW OF SYSTEMS: HEENT: Negative. PULMONARY: Negative. CARDIAC: Negative. PHYSICAL EXAMINATION: GENERAL: She is currently alert, oriented. VITAL SIGNS: Stable. Follows commands. Afebrile. HEENT: She is not icteric. NECK: Supple. CHEST: Clear bilateral. HEART: S1, S2. No S3, S4, or murmur. ABDOMEN: Soft. Bowel sounds present. No tenderness. No hepatosplenomegaly. EXTREMITIES: No edema. SKIN: No rash. IMPRESSION: 1. Coagulase-negative Staph bacteremia contamination, Pseudomonas aeruginosa bacteriuria, currently doing well from Infectious Disease point of view. The patient will be discharged home with Hiprex 1 g p.o. daily. 2. Chronic kidney disease. 3. Liver cirrhosis, stable from Infectious Disease point of view. MD TULIO Jesus/KENNA /[id number]
[2019-12-24] MEDS: FUROSEMIDE INJ 10 MG/ML 2 ML VIAL IV PRN (18:25)
--- NOTE | 2019-12-24 20:38 | NUR ---
Made DR. Black aware daughter informed me today her mother has a allergy to penicillin but does not know the reaction of penicillin, I made Dr. Black aware I up dated the allergy to penicillin. Received orders to go ahead and administer the penicillin since patient has already received 4 doses and she has not had an allergic reaction.
--- NOTE | 2019-12-24 21:02 | NUR ---
patient is on blood transfusion on going. she is awake alert. she drinks some soda and eat one cup of jello. tolerated well. denied any pain at this time, will continue to monitor.
[2019-12-24] MEDS: MIRTAZAPINE 15 MG TAB PO SCH (21:28)
[2019-12-24] MEDS: TRAZODONE HCL 50 MG TAB PO PRN (22:13)
[2019-12-25] VITALS (10 sets, daily range): BP systolic 88–119; BP diastolic 49–69
[2019-12-25 05:03] LABS: BASOPHILS % 0.4 % (0.0-1.0); EOSINOPHILS # (AUTO) 0.2 (0.0-0.4); EOSINOPHILS % 4.4 % (0.0-6.0); HEMATOCRIT 28.1 % (34.2-44.1); HEMOGLOBIN 8.9 g/dL (12.0-16.0); LYMPHOCYTES # (AUTO) 1.3 (1.0-3.2); MEAN CORPUSCULAR HEMOGLOBIN 29.3 pg (28-32); MEAN CORPUSCULAR HGB CONC 31.7 g/dL (31-35); MEAN CORPUSCULAR VOLUME 92.4 fL (81-99); MONOCYTES # (AUTO) 0.4 (0.2-0.8); MONOCYTES % 8.9 % (4.4-11.3); NEUTROPHILS # (AUTO) 2.9 (2.1-6.9); NEUTROPHILS % 59.1 % (38.7-80.0); PLATELET COUNT 71 x10e3/uL (140-360); RED BLOOD COUNT 3.04 x10e6/uL (3.6-5.1); RED CELL DISTRIBUTION WIDTH 17.1 % (11.7-14.4)
[2019-12-25 05:29] LABS: ALBUMIN/GLOBULIN RATIO 0.5 (0.8-2.0); ANION GAP 12.9 mmol/L (8-16); CALCIUM 8.8 mg/dL (8.4-10.2); CREATININE, SERUM 2.43 mg/dL (0.57-1.11); POTASSIUM 3.9 mmol/L (3.5-5.1)
[2019-12-25] MEDS: FUROSEMIDE INJ 10 MG/ML 4 ML VIAL IV SCH ×4 (06:00→22:15)
[2019-12-25] MEDS: LEVOTHYROXINE SODIUM 100 MCG TAB PO SCH (06:00)
[2019-12-25] MEDS: FAMOTIDINE 20 MG TAB PO SCH ×2 (07:30→17:09)
[2019-12-25] MEDS: SUCRALFATE 1 GM TAB PO SCH ×4 (07:30→21:23)
[2019-12-25] MEDS: MIDODRINE HCL 5 MG TABLET PO SCH ×4 (08:00→17:09)
[2019-12-25] MEDS: COLLAGENASE 5 GM TUBE TOP SCH (09:00)
[2019-12-25] MEDS: GABAPENTIN 300 MG CAP PO SCH ×2 (09:00→17:09)
[2019-12-25] MEDS: DOCUSATE SODIUM 100 MG CAP PO SCH ×2 (09:00→17:09)
[2019-12-25] MEDS: FAMOTIDINE 20 MG/2 ML VIAL IV SCH ×2 (09:00→17:09)
--- NOTE | 2019-12-25 09:20 | NUR ---
OK TO DC TELE TO GO DOWN TO MRI
--- NOTE | 2019-12-25 09:28 | NUR ---
PT SLEEPING, NOT WANTING MEDS OR FOOD AT THIS TIME. PT TO HAVE PROCEDURE @11
--- NOTE | 2019-12-25 09:54 | NUR ---
PT HAS HEMATURIA WITH CLOTTING THROUGH SUPRAPUBIC CATHETER. PER MD, PLACING URETHRAL FC AND START CBI THROUGH SUPRAPUBIC. PT TO GO TO IR ALSO FOR MRCP AND ALSO CHECKING ABDOMEN FOR HEMATURIA/CLOTTING.
--- NOTE | 2019-12-25 10:25 | NUR ---
IR CONSULT PLACED FOR SELECTIVE EMBOLISM PER
--- NOTE | 2019-12-25 11:23 | Progress Note ---
DATE: SUBJECTIVE: The patient is seen and evaluated. Discussed with attending team. Discussed with Urology, Dr. Luna. REVIEW OF SYSTEMS: The patient open eyes and went back to sleep. Seems to be weak and lethargic. Unable to obtain review of systems, but overall, no obvious acute finding. PHYSICAL EXAMINATION: VITAL SIGNS: Temperature 100.1 this morning with a max of 100.3 yesterday morning at 8 o'clock, pulse 82, respirations 19, and blood pressure 105/63. GENERAL: Lethargic, seems to be oriented, but very weak. CV: S1 and S2. CHEST: Equal expansion. Clear to auscultation. No acute distress. ABDOMEN: Soft and nontender. No distention. HEENT: Moist. No pallor. No JVD. : The patient with suprapubic catheter and chastity blood in the bag and suprapubic tube. MEDICATIONS: Medication list reviewed and from Infectious Disease point of view, the patient is on Azactam. LABORATORY STUDIES: White count of 4.82, hemoglobin 8.9, and platelets 71. Sodium 145, potassium 3.9, and creatinine 2.43. Renal function seems to be improving. Coronavirus PCR 12/14, is not detected. MICROBIOLOGY: No new microbiology studies available. RADIOLOGY STUDIES: Abdomen ultrasound 12/23, showed status post interval left nephrectomy with no evidence of right-sided hydronephrosis or nephrolithiasis with decompressed bladder with Gibson cath. However, the patient has a suprapubic cath and also ultrasound showed hepatomegaly with cirrhotic liver and sequelae of portal hypertension, splenomegaly and ascites, cholelithiasis without evidence of cholecystitis, borderline mild common bile duct dilation measuring 0.7 cm. Suggest correlation with LFT. This patient LFTs including AST, ALT, and total bilirubin are all within normal limits. ASSESSMENT AND PLAN: 1. Coag-negative staph bacteremia-contaminated Pseudomonas aeruginosa bacteriuria, currently on Azactam with chronic renal insufficiency. Creatinine has improved. Can be discharged. When ready for discharge with Hiprex 1 g p.o. Daily. 2. Chronic kidney disease. 3. Hematuria. The patient is status post exchange of stent, however, continues to bleed. The patient may need evaluation by IR. Discussed with and discussed with attending physician team. 4. Hepatic cirrhosis. 5. Continue with antibiotics at this point and monitor the patient clinically and follow up with the labs. Overall guarded prognosis. Discussed with Dr. Black. Please refer to chart for more information. Dictated by Jules Zavala) CHRIS Miner Vilma Black MD /MEAGANL /[id number]
[2019-12-25] MEDS ORDERED: ONDANSETRON HCL 4 MG ORAL DISINTEGRATING TAB PO PRN (11:45)
--- NOTE | 2019-12-25 11:49 | Progress Note ---
DATE: SUBJECTIVE: in the intensive care unit, alert and confused. OBJECTIVE: VITAL SIGNS: Stable. Afebrile. HEENT: She is not icteric. NECK: Supple. CHEST: Few crackles. COR: S1 and S2. ABDOMEN: Soft. ASSESSMENT: 1. Acute on chronic kidney disease on hemodialysis, hypertension, hematuria, urinary tract infection. 2. Hepatitis C, liver cirrhosis, debility, anemia, coagulase negative staph bacteremia, Pseudomonas aeruginosa urinary tract infection, anemia of chronic disease. The patient is currently on Neurontin, Synthroid, Azactam. Continue as ordered. We will follow. MD TULIO Jesus/MODJace /[id number]
[2019-12-25] MEDS: ACETAMINOPHEN 325 MG TAB PO PRN ×2 (12:54→21:36)
--- NOTE | 2019-12-25 15:49 | Progress Note ---
DATE: 12/25/2019 Nephrology Progress Note SUBJECTIVE: The patient is sleeping comfortably. OBJECTIVE: VITAL SIGNS: Stable. Blood pressure 103/69, respirations 18 per minute, and afebrile. NECK: Without jugular venous distention. RESPIRATIONS: Appears symmetrical without distress. CARDIOVASCULAR: Normal S1 and S2. ABDOMEN: Nondistended. EXTREMITIES: Bilateral above-knee amputation. There is no obvious edema. LABORATORY DATA: Hemoglobin is 8.9. Creatinine continues to improve, now 2.4, BUN 50, bicarb 33, potassium 3.9, and sodium 145. IMPRESSION: 1. Acute kidney injury, resolving post ureteral stent change. 2. Chronic kidney disease, stage 4. 3. Anemia, multifactorial. 4. Congestive heart failure/fluid overload, responding to IV Lasix with 1200 mL negative fluid balance in last 24 hours. 5. Blood pressure, on small dose midodrine 5 mg daily. Diogenes Porras MD [facility]/MODL /[id number]
--- NOTE | 2019-12-25 16:19 | Diagnostic Imaging Report ---
TECHNIQUE: MRI of the abdomen and MRCP WITHOUT intravenous contrast. 3-D volume reconstructions were obtained to evaluate the biliary ductal system. INDICATION: 54-year-old woman with dilated common bile duct. COMPARISON: Abdomen ultrasound 12/24/2019, abdomen and pelvis CT 12/16/2019. FINDINGS: ABSENCE OF INTRAVENOUS CONTRAST DECREASES SENSITIVITY FOR DETECTION OF FOCAL LESIONS AND VASCULAR PATHOLOGY. SUBOPTIMAL EVALUATION SECONDARY TO MOTION ARTIFACT ON MRCP SEQUENCES. LOWER THORAX: Trace bilateral pleural effusions. LIVER: Cirrhotic morphology of the liver. No focal hepatic lesions. BILIARY: Cholelithiasis in the otherwise unremarkable gallbladder. Apparent 0.3 cm stone in the dependent portion of the distal common bile duct (best seen on axial thin slab MRCP sequence series 12 image 28). Common bile duct is mildly prominent measures 0.8 cm in diameter. Mildly prominent intrahepatic bile ducts. SPLEEN: Spleen is prominent and measures 15.3 cm in the craniocaudal dimension. PANCREAS: No focal masses or ductal dilatation. ADRENALS: No adrenal nodules. KIDNEYS/URETERS: T2 hyperintense foci in the left upper pole, likely stones. Mild right hydronephrosis. PERITONEUM/RETROPERITONEUM: Small volume ascites, likely loculated. LYMPH NODES: No lymphadenopathy. VESSELS: Unchanged inferior vena cava filter. GI TRACT: No distention or wall thickening. BONES AND SOFT TISSUES: Unremarkable. IMPRESSION: Cholelithiasis without specific evidence of acute cholecystitis. Mild intrahepatic and extrahepatic biliary ductal prominence with apparent choledocholithiasis in the distal common bile duct, although evaluation is suboptimal due to motion artifact on MRCP sequences. If indicated, ERCP may be obtained for further evaluation. Cirrhosis with splenomegaly and small volume ascites. Mild right hydronephrosis. Left nephrolithiasis. Signed by: Gonzales Thorpe MD on 12/25/2019 4:16 PM
[2019-12-25] MEDS: NOREPINEPHRINE INJ 4MG/4ML 8 MG in DEXTROSE 5% 250ML 242 ML IV SCH (16:45)
--- NOTE | 2019-12-25 17:11 | NUR ---
CTA was ordered by attending, was told Dr Luna did not want. Attending does, radiologist refused to do until agreed upon with Dr Luna and Dr Knott. pending at this time. Dr Luna ordered FC placed urethrally and CBI done through suprapubic, pt has not agreed to allow urethral FC placed at this time. continue to do manual irrigation, gross hematuria and clots still present. vs stable. Addendum: 12/25/19 at 1930 by Enid Acuña RN urethral FC to be 24fr/10cc. CBI into suprapubic and out urethral
[2019-12-25] MEDS ORDERED: SODIUM CHLORIDE 0.9% 250ML 250 ML IV ONE (20:00)
[2019-12-25] MEDS: AZTREONAM 2GM/NS 100ML 100 ML IV SCH (21:00)
--- NOTE | 2019-12-25 21:09 | NUR ---
Clarified blood bank orders just entered in computer by [employer] with Terrence Archibald NP. Terrence stated Mary Ellis [employer] "put in orders for blood so that's what she wants". Terrence [employer] aware of current Hgb lab value.
[2019-12-25] MEDS: MIRTAZAPINE 15 MG TAB PO SCH (21:23)
--- NOTE | 2019-12-25 23:42 | NUR ---
Report given to Emmy Thomas RN, RN assuming care.
[2019-12-26] VITALS (10 sets, daily range): BP systolic 95–130; BP diastolic 41–97
[2019-12-26] MEDS ORDERED: SODIUM CHLORIDE 0.9% 250ML 500 ML ONE (00:05)
[2019-12-26] MEDS ORDERED: LIDOCAINE HCL 2% 100 MG/5 ML IV ONE (00:50)
[2019-12-26] MEDS ORDERED: LIDOCAINE HCL 2% JELLY 5 ML TUBE ONE (00:59)
--- NOTE | 2019-12-26 01:28 | NUR ---
PATIENT BLADDER IRRIGATION SET UP PER NOTES WITH CBI GOING TO SUPRAPUBIC CATHETER AND DRAINING VIA URETHRAL KEANE CATHETER. PATIENT SET TO GET 2 UNITS PRBCS AND PLATELETS. WILL CONT TO MONITOR.
[2019-12-26 05:20] LABS: BASOPHILS % 0.5 % (0.0-1.0); EOSINOPHILS # (AUTO) 0.2 (0.0-0.4); EOSINOPHILS % 4.4 % (0.0-6.0); HEMATOCRIT 28.4 % (34.2-44.1); HEMOGLOBIN 8.7 g/dL (12.0-16.0); LYMPHOCYTES # (AUTO) 1.4 (1.0-3.2); LYMPHOCYTES % 31.8 % (18.0-39.1); MEAN CORPUSCULAR HEMOGLOBIN 28.8 pg (28-32); MEAN CORPUSCULAR HGB CONC 30.6 g/dL (31-35); MONOCYTES # (AUTO) 0.5 (0.2-0.8); MONOCYTES % 10.9 % (4.4-11.3); NEUTROPHILS # (AUTO) 2.3 (2.1-6.9); NEUTROPHILS % 52.2 % (38.7-80.0); PLATELET COUNT 60 x10e3/uL (140-360); RED BLOOD COUNT 3.02 x10e6/uL (3.6-5.1); RED CELL DISTRIBUTION WIDTH 17.9 % (11.7-14.4)
[2019-12-26 05:46] LABS: ALBUMIN/GLOBULIN RATIO 0.6 (0.8-2.0); ANION GAP 15.7 mmol/L (8-16); CALCIUM 8.3 mg/dL (8.4-10.2); CREATININE, SERUM 2.35 mg/dL (0.57-1.11); POTASSIUM 3.7 mmol/L (3.5-5.1)
[2019-12-26] MEDS: FUROSEMIDE INJ 10 MG/ML 4 ML VIAL IV SCH ×2 (06:03→17:19)
[2019-12-26] MEDS: LEVOTHYROXINE SODIUM 100 MCG TAB PO SCH (06:03)
[2019-12-26] MEDS ORDERED: B&O 60MG R/S 60 MG SUPP PR PRN (06:30)
[2019-12-26] MEDS: FAMOTIDINE 20 MG TAB PO SCH ×2 (07:54→16:32)
[2019-12-26] MEDS: SUCRALFATE 1 GM TAB PO SCH ×5 (07:54→20:50)
[2019-12-26] MEDS: DOCUSATE SODIUM 100 MG CAP PO SCH ×2 (08:04→16:32)
[2019-12-26] MEDS: MIDODRINE HCL 5 MG TABLET PO SCH ×3 (08:04→16:32)
[2019-12-26] MEDS: FAMOTIDINE 20 MG/2 ML VIAL IV SCH ×2 (08:04→16:32)
[2019-12-26] MEDS: COLLAGENASE 5 GM TUBE TOP SCH (08:04)
[2019-12-26] MEDS: GABAPENTIN 300 MG CAP PO SCH (08:04)
[2019-12-26] MEDS ORDERED: SODIUM CHLORIDE 0.9% 250ML 250 ML ONE (10:06)
--- NOTE | 2019-12-26 10:58 | Progress Note ---
DATE: SUBJECTIVE: The patient is seen and evaluated. Available labs and notes reviewed. Discussed with the nurse. Discussed with attending team. Currently, the patient is comfortable in bed, seems little bit more alert and oriented, comfortable. Packed red blood cells in progress. The patient has a Gibson catheter and suprapubic catheter irrigation in progress, however, both of the drainage are bloody and seems to be more in the suprapubic bag versus the Gibson catheter bag. Plan is also is for platelet transfusion. No nausea, vomiting, fever, chills, chest pain, shortness of breath, headache, rash, cough. OBJECTIVE: VITAL SIGNS: Temperature is 98.6 with a maximum temperature of 100.1 yesterday at 7:54 a.m. in the morning, pulse is 62, respirations 17, blood pressure 95/67. GENERAL: Alert and oriented, no acute distress. CV: S1, S2. CHEST: Equal expansion. Clear to auscultation. No acute distress. ABDOMEN: Soft. No tenderness. No distention. HEENT: Moist. No pallor. No JVD. EXTREMITIES: Bilateral AKA. Surgical sites in no acute distress. Suprapubic catheter and Gibson catheterization noted, both with bloody drainage. MEDICATIONS: Medication list reviewed. From Infectious Disease point of view patient is on Azactam 2 g daily. LABORATORY STUDIES: White count of 4.31, hemoglobin 8.7, platelet count of 60. Sodium 143, potassium 3.7, creatinine 2.35, total bilirubin of 0.9, AST 23, ALT 11, ALP 330, total protein of 5.4. RADIOLOGY STUDIES: The patient had MRCP and showed no specific evidence of acute cholecystitis, even though she had cholelithiasis. Also, MRCP showed mild intrahepatic and extrahepatic biliary ductal prominence with apparent choledocholithiasis in the distal common bile duct although evaluation is suboptimal due to motion artifact on MRCP sequence. The patient also showed to have cirrhosis with splenomegaly and small volume ascites and mild right hydronephrosis and left nephrolithiasis. ASSESSMENT AND PLAN: 1. Coagulase negative staph bacteremia, contaminated. 2. Pseudomonas aeruginosa bacteriuria. 3. Chronic kidney disease. 4. Hematuria. 5. Hepatic cirrhosis. 6. Elevated alkaline phosphatases, status post MRCP see above. 7. Antibiotic adjusted based on kidney function. Currently on Azactam 2 g daily. Hematuria-Urology on the case. Follow with the recommendation. The patient is getting packed red blood cells. Please refer to chart for more information. Discussed with Dr. Black in details. Thank you for this dictation. Dictated by Jules Miner PA-C (Al) Vilma Black MD /KENAN /[id number]
[2019-12-26 12:39] LABS: BASOPHILS % 0.5 % (0.0-1.0); EOSINOPHILS # (AUTO) 0.2 (0.0-0.4); EOSINOPHILS % 3.8 % (0.0-6.0); HEMATOCRIT 32.1 % (34.2-44.1); HEMOGLOBIN 9.7 g/dL (12.0-16.0); LYMPHOCYTES # (AUTO) 1.2 (1.0-3.2); MEAN CORPUSCULAR HEMOGLOBIN 28.4 pg (28-32); MEAN CORPUSCULAR HGB CONC 30.2 g/dL (31-35); MEAN CORPUSCULAR VOLUME 94.1 fL (81-99); MONOCYTES # (AUTO) 0.6 (0.2-0.8); MONOCYTES % 10.7 % (4.4-11.3); NEUTROPHILS # (AUTO) 3.5 (2.1-6.9); NEUTROPHILS % 63.6 % (38.7-80.0); PLATELET COUNT 103 x10e3/uL (140-360); RED BLOOD COUNT 3.41 x10e6/uL (3.6-5.1); RED CELL DISTRIBUTION WIDTH 17.9 % (11.7-14.4)
--- NOTE | 2019-12-26 14:45 | NUR ---
INFORMED DR BAILEY THAT PATIENT LEAKING FROM SUPRAPUBIC CATHETER, ORDERS RECEIVED TO CHANGE URTERAL KEANE FROM [address] CATHETER TO 24 PASHTO 10 CC BALLOON PER MD ORDER AND CBI TO RUN THROUGH SUPRA PUBIC CATHETER AT THIS TIME, ORDERS TO MANUALLY IRRIGATE SUPRAPUBIC CATHETER, WILL CONTINUE TO MONITOR.
[2019-12-26] MEDS: ACETAMINOPHEN/CODEINE 300MG - 30MG TAB PO PRN (16:35)
--- NOTE | 2019-12-26 17:30 | NUR ---
SUPRA PUBIC CATHETER MANUALLY IRRIGATED OVER 2000 ML OF BLOODY URINE AND LARGE BLOOD CLOTS REMOVED, IRRIGATION CONTINUOUS AT THIS TIME AND URINE CLEAR, WILL CONTINUE TO MONITOR
--- NOTE | 2019-12-26 18:09 | Progress Note ---
DATE: 12/26/2019 Nephrology Followup Note SUBJECTIVE: The patient is in no acute distress. Still on IV Lasix with good response. Her suprapubic catheter is being irrigated per Radiology to resolve the blood clots following the ureteric stent change. OBJECTIVE: VITAL SIGNS: Stable. Blood pressure is 117/97. She is afebrile. Oxygen saturation 100% on room air. NECK: Supple without jugular venous distention. RESPIRATORY: Symmetric air entry bilaterally. No respiratory distress. CARDIOVASCULAR: Normal S1, S2. ABDOMEN: Soft, nondistended. EXTREMITIES: Bilateral above-knee amputation. LABORATORY DATA: Hemoglobin is 9.7 with ongoing hematuria, white count normal, and platelets 103,000. Serum chemistry show improving creatinine of 2.35, BUN 48, normal electrolytes. IMPRESSION: 1. Acute kidney injury, returning towards baseline. 2. 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 3. Status post left ureteric stent change followed by hematuria. Urology directing care. 4. Blood pressure, stable, on once daily midodrine. 5. Anemia secondary to chronic kidney disease. Diogenes Porras MD [facility]/MODL /[id number]
[2019-12-26] MEDS: AZTREONAM 2GM/NS 100ML 100 ML IV SCH (20:45)
[2019-12-26] MEDS: MIRTAZAPINE 15 MG TAB PO SCH ×2 (20:45→20:50)
[2019-12-27] VITALS (12 sets, daily range): BP systolic 84–124; BP diastolic 53–95
[2019-12-27] MEDS: FUROSEMIDE INJ 10 MG/ML 4 ML VIAL IV SCH ×3 (02:09→18:29)
[2019-12-27] MEDS: LEVOTHYROXINE SODIUM 100 MCG TAB PO SCH (05:06)
[2019-12-27 05:37] LABS: BASOPHILS % 0.3 % (0.0-1.0); EOSINOPHILS # (AUTO) 0.3 (0.0-0.4); EOSINOPHILS % 4.2 % (0.0-6.0); HEMATOCRIT 26.3 % (34.2-44.1); HEMOGLOBIN 8.3 g/dL (12.0-16.0); LYMPHOCYTES # (AUTO) 1.5 (1.0-3.2); LYMPHOCYTES % 23.8 % (18.0-39.1); MEAN CORPUSCULAR HEMOGLOBIN 28.3 pg (28-32); MEAN CORPUSCULAR HGB CONC 31.6 g/dL (31-35); MEAN CORPUSCULAR VOLUME 89.8 fL (81-99); MONOCYTES # (AUTO) 0.5 (0.2-0.8); MONOCYTES % 8.2 % (4.4-11.3); NEUTROPHILS # (AUTO) 3.9 (2.1-6.9); NEUTROPHILS % 63.3 % (38.7-80.0); PLATELET COUNT 107 x10e3/uL (140-360); RED BLOOD COUNT 2.93 x10e6/uL (3.6-5.1); RED CELL DISTRIBUTION WIDTH 17.4 % (11.7-14.4)
[2019-12-27 06:04] LABS: ALBUMIN 2.1 g/dL (3.5-5.0); ALBUMIN/GLOBULIN RATIO 0.6 (0.8-2.0); ANION GAP 13.7 mmol/L (8-16); CALCIUM 8.3 mg/dL (8.4-10.2); CREATININE, SERUM 2.34 mg/dL (0.57-1.11); POTASSIUM 3.7 mmol/L (3.5-5.1)
[2019-12-27] MEDS: FAMOTIDINE 20 MG TAB PO SCH (07:30)
[2019-12-27] MEDS: SUCRALFATE 1 GM TAB PO SCH ×4 (07:49→21:34)
[2019-12-27] MEDS: MIDODRINE HCL 5 MG TABLET PO SCH ×3 (09:00→15:53)
[2019-12-27] MEDS: FAMOTIDINE 20 MG/2 ML VIAL IV SCH ×2 (09:02→18:29)
[2019-12-27] MEDS: COLLAGENASE 5 GM TUBE TOP SCH (09:02)
[2019-12-27] MEDS: DOCUSATE SODIUM 100 MG CAP PO SCH ×2 (09:02→18:29)
[2019-12-27] MEDS ORDERED: SODIUM CHLORIDE 0.9% 250ML 250 ML IV NR (09:30)
--- NOTE | 2019-12-27 10:09 | NUR ---
Transfusion of PRBC and FFP on hold. Ayde in blood bank states the pathologist will clarify with Dr Knott group regarding the orders. No blood products will be released at this time.
--- NOTE | 2019-12-27 10:20 | NUR ---
Dr Sofya Bueno notified of new consult.
--- NOTE | 2019-12-27 10:22 | Progress Note ---
DATE: SUBJECTIVE: The patient is seen and evaluated. Available labs and notes reviewed. Discussed with the attending team. Discussed with the nurse. Discussed with Dr. Black. The patient is seen and evaluated, sleepy little bit today, however, no acute distress or complaint from nursing staff. REVIEW OF SYSTEMS: As mentioned above, the patient is sleepy, opens eyes and goes back to sleep. Unable to obtain review of systems. PHYSICAL EXAMINATION: VITAL SIGNS: Temperature 98.8, pulse 71, respiration 18, and blood pressure 84/53. GENERAL: Comfortable in bed, no acute distress, sleepy. CV: S1 and S2. CHEST: Equal expansion. Clear to auscultation. No acute distress. ABDOMEN: Soft and nontender. No distention. HEENT: Moist. No pallor. No JVD. EXTREMITIES: Bilateral AKA of the surgical sites with no obvious acute finding. : The patient remains with suprapubic, which is mostly for fluid going in and irrigating and coming out through the Gibson cath and the urine remains red, but is not thick. The redness is not as intense as it was yesterday, seems to be . MEDICATIONS: Medication list reviewed and from Infectious Disease point of view, the patient is on Azactam. LABORATORY STUDIES: White count of 6.21, hemoglobin 8.3, and platelet 107. Sodium 141, potassium 3.7, and creatinine 2.34, which is stable. Coronavirus PCR 12/14, not reactive. RADIOLOGY STUDIES: No new radiology studies available. MICROBIOLOGY: No new microbiology studies available. PATHOLOGY: No new pathology available. ASSESSMENT AND PLAN: 1. Hematuria. 2. Pseudomonas aeruginosa bacteriuria/versus urinary tract infection. 3. Coag-negative Staph bacteremia-contaminated. 4. Chronic kidney disease with chronic renal insufficiency. 5. Hepatic cirrhosis. 6. Elevated alkaline phosphatase with a negative MRCP. 7. The patient in on Azactam 2 g daily and dosed based on her renal function. We will continue with irrigation as requested by ALFREDO, as mentioned above. Discussed with the attending team. Continue to monitor the patient clinically and follow with the labs. Remains afebrile with white blood cells within normal limit and improved platelets. Discussed with Dr. Black in details. Please refer to chart for more information. Dictated by Jules Miner PA-C (Al) MD MENDEL Jesus/KENAN /[id number]
[2019-12-27] MEDS ORDERED: LIDOCAINE HCL 2% 100 MG/5 ML IV ONE (13:00)
--- NOTE | 2019-12-27 13:25 | NUR ---
Dr Ornelas, pathologist, is allowing todays blood products to procede with transfusion. Await notification of units ready.
[2019-12-27] MEDS ORDERED: PHYTONADIONE 10 MG/ML AMP IV ONE (14:30)
[2019-12-27] MEDS ORDERED: PHYTONADIONE 10MG/ML 20 MG in SODIUM CHLORIDE 0.9% 50ML 50 ML IV ONE (15:00)
--- NOTE | 2019-12-27 15:00 | NUR ---
Pt with new onset episodes of V Tach wide complex varying sizes. Along with the V Tach the pt is going stiff, rolling her head back. The heart rate and pts physical appearance will relax and return to normal. The patient is aware of feeling uncomfortable with these events. This has been witnessed by nursing and Dr Jace Dill. Orders to give lidocaine bolus, start lidocaine drip, mag sulfate, labs, and transfer to ICU.
[2019-12-27] MEDS ORDERED: LIDOCAINE 1% 5ML-MPF INJ ONE (15:15)
[2019-12-27] MEDS: LIDOCAINE 2GM/D5W 500ML 500 ML IV SCH (15:15)
[2019-12-27] MEDS ORDERED: MAGNESIUM SULFATE 2GM/50ML 50 ML IV ONE (15:15)
[2019-12-27 15:17] LABS: BASOPHILS % 0.3 % (0.0-1.0); EOSINOPHILS # (AUTO) 0.2 (0.0-0.4); EOSINOPHILS % 3.1 % (0.0-6.0); HEMOGLOBIN 9.9 g/dL (12.0-16.0); LYMPHOCYTES # (AUTO) 2.2 (1.0-3.2); LYMPHOCYTES % 28.8 % (18.0-39.1); MEAN CORPUSCULAR HEMOGLOBIN 28.5 pg (28-32); MEAN CORPUSCULAR HGB CONC 31.9 g/dL (31-35); MEAN CORPUSCULAR VOLUME 89.3 fL (81-99); MONOCYTES # (AUTO) 0.6 (0.2-0.8); MONOCYTES % 8.2 % (4.4-11.3); NEUTROPHILS # (AUTO) 4.5 (2.1-6.9); NEUTROPHILS % 59.2 % (38.7-80.0); PLATELET COUNT 115 x10e3/uL (140-360); RED BLOOD COUNT 3.47 x10e6/uL (3.6-5.1); RED CELL DISTRIBUTION WIDTH 17.5 % (11.7-14.4)
[2019-12-27 15:30] LABS: INR 1.05; PROTHROMBIN TIME 14.3 seconds (11.9-14.5)
[2019-12-27 15:36] LABS: ALBUMIN 2.3 g/dL (3.5-5.0); ALBUMIN/GLOBULIN RATIO 0.6 (0.8-2.0); ANION GAP 15.2 mmol/L (8-16); CALCIUM 8.8 mg/dL (8.4-10.2); CREATININE, SERUM 2.44 mg/dL (0.57-1.11); POTASSIUM 4.2 mmol/L (3.5-5.1)
--- NOTE | 2019-12-27 15:53 | Progress Note ---
DATE: SUBJECTIVE: A rapid response was called because of syncope. Review of the tracing from telemetry showed about 20 seconds of ventricular tachycardia with an appearance of torsades. The patient had a 2nd brief episode of possible syncope. She was given magnesium 2 g as well as a lidocaine bolus 100 mg. She was started on lidocaine at 2 mg an hour. Her medications were reviewed and her B and O suppositories were held as well as her trazodone and Remeron. PHYSICAL EXAMINATION: VITAL SIGNS: The patient now is in sinus rhythm at a rate of 72. Her blood pressure is 87/56, and saturation is 100%. She is afebrile. HEENT: No facial swelling or erythema. CARDIAC: Regular rate and rhythm with normal S1, S2. LUNGS: Auscultation of lungs shows clear breath sounds bilaterally. There is no wheezing. ABDOMEN: Soft, nontender. There is no rebound or guarding. EXTREMITIES: No leg edema or calf tenderness. There is no cyanosis or clubbing. SKIN: No rashes. LABORATORY DATA: White blood cell count is 6.2 and hemoglobin is 8.3. The platelet count is 107. BUN to creatinine ratio is 45 to 2.34. The albumin is 2.1. IMPRESSION: 1. Ventricular tachycardia and possible torsades. 2. Cirrhosis and portal hypertension. 3. Cholelithiasis with choledocholithiasis in the distal common bile duct. 4. Anemia secondary to acute blood loss. 5. Hydronephrosis. 6. Peripheral vascular disease leading to hkwfj-ulq-gala amputations. 7. Chronic renal failure, stage 4. PLAN: 1. Continue lidocaine. 2. Cardiology evaluation. 3. Discuss management of choledocholithiasis with Gastroenterology. 4. Continue thyroid medication. 5. Continue antibiotics. 6. Prognosis in the skilled nursing is poor. Greater than 35 minutes in direct critical care time. MD LIBAN Lake/KENAN /[id number]
[2019-12-27] MEDS ORDERED: PHYTONADIONE 10MG/ML 20 MG in SODIUM CHLORIDE 0.9% 50ML 50 ML IV NR (16:15)
--- NOTE | 2019-12-27 17:00 | NUR ---
Nursing report received from Prema REGALADO.
--- NOTE | 2019-12-27 17:27 | NUR ---
Pt transferred into room 191 by this RN and Prema REGALADO. Pt remains on lidocaine gtt. Vitals stable. Will continue to monitor patient. Continuos bladder irrigation in place.
--- NOTE | 2019-12-27 17:30 | NUR ---
Spoke w Lena, pt's alternate person for advance directive. She has been notified pt is moved to room 191, ICU. Lena instructed me that she is to be DNR with exception to medications. Radha Ellis NET SOFTWARE DEVELOPER notified.
[2019-12-27] MEDS: ACETAMINOPHEN/CODEINE 300MG - 30MG TAB PO PRN (18:31)
[2019-12-27] MEDS: AZTREONAM 2GM/NS 100ML 100 ML IV SCH (20:02)
[2019-12-27 21:22] LABS: HYPOCHROMASIA SLIGHT; PLATELET ESTIMATE SLIGHTLY DECREASED; POIKILOCYTOSIS SLIGHT; RBC MORPHOLOGY COMMENT ABNORMAL
[2019-12-27 21:23] LABS: ANISOCYTOSIS SLIGHT; TOXIC GRANULATION MODERATE
--- NOTE | 2019-12-27 22:40 | Consultation ---
DATE OF CONSULTATION: 12/27/2019 Cardiology Consultation REASON FOR CONSULTATION: Ventricular tachycardia. HISTORY OF PRESENT ILLNESS: A 54-year-old woman with history of advanced peripheral arterial disease, status post bilateral above-knee amputation, liver cirrhosis with portal hypertension, advanced CKD, cholelithiasis and choledocholithiasis, gross hematuria in the setting of nephrolithiasis with chronic suprapubic catheter, history of Pseudomonas UTI, presents to the hospital with ureteral stent placement, postoperatively noted to have episodes of hypotension and gross hematuria for which patient is undergoing further treatment supportively. She was observed this afternoon to have an episode of polymorphic nonsustained ventricular tachycardia. The patient denies any chest discomfort or shortness of breath. She remains somewhat confused at baseline, however. REVIEW OF SYSTEMS: A 12-system review limited exam given the patient's underlying mental status. ALLERGIES: TO CEPHALEXIN. PAST MEDICAL HISTORY: As per HPI. SOCIAL HISTORY: Nursing facility resident. No active smoking, alcohol, or drugs. FAMILY HISTORY: Noncontributory. PHYSICAL EXAMINATION: VITAL SIGNS: Temperature 99.3, heart rate 73, respiratory rate 12, blood pressure 84/53 up to 116/77, O2 saturation 100% on 2 L/minute per nasal cannula. GENERAL: No acute distress. Alert. Chronically ill-appearing. NECK: No JVD. CHEST: Clear to auscultation bilaterally. CARDIOVASCULAR: Regular rate and rhythm. Normal S1 and S2. No S3. No S4. No murmurs, no rubs. ABDOMEN: Soft. Bowel sounds positive. EXTREMITIES: Bilateral AKA, stumps with mervat in place. CARDIOVASCULAR MEDICATIONS: Reviewed. Furosemide 40 mg IV q.8 hours, midodrine 5 mg p.o. daily, lidocaine IV initiated today. LABORATORY DATA: Studies reviewed. White blood cells 7.6, hemoglobin 9.9, platelets 115, PTT 14, INR 1. Sodium 139, potassium 4.2, chloride 98, bicarbonate 30, BUN 43, creatinine 2.4, glucose 96, calcium 8.8, total bilirubin 0.8, AST 28, ALT 13, alkaline phosphatase 314, total protein 6.2, albumin 2.3. Gross hematuria noted in a Gibson bag. Coronavirus PCR nondetected. EKG with sinus rhythm, nonspecific repolarization abnormality, prolonged QT. ASSESSMENT AND PLAN: A 54-year-old woman with: 1. Non-sustained ventricular tachycardia, torsade de pointes. 2. Vasculopathy with peripheral artery disease and prior above-knee amputation. 3. Hematuria, gross. 4. Liver cirrhosis. 5. Chronic kidney disease. 6. Cholelithiasis and choledocholithiasis without evidence of acute cholecystitis. 7. Left nephrolithiasis. 8. Prolonged QT. 9. Hypertension, on midodrine therapy. RECOMMENDATIONS: 1. Avoid QT prolonging drugs. 2. Magnesium IV. 3. Agree with lidocaine. 4. Avoid chronotropic negative medications at this point. 5. Titrate midodrine to t.i.d. . 6. Obtain echocardiogram. 7. Keep on telemetry. Monitor in ICU. 8. Trend cardiac biomarkers. Thank you for the opportunity to participate in the care of Ms. Leach. Please call with any questions, . MD MAINE Tao/KENAN /[id number]
[2019-12-28] VITALS (26 sets, daily range): BP systolic 94–152; BP diastolic 60–109
[2019-12-28] MEDS: FUROSEMIDE INJ 10 MG/ML 4 ML VIAL IV SCH ×3 (02:30→18:05)
[2019-12-28 05:00] LABS: BASOPHILS % 0.4 % (0.0-1.0); EOSINOPHILS # (AUTO) 0.1 (0.0-0.4); EOSINOPHILS % 2.4 % (0.0-6.0); HEMATOCRIT 28.9 % (34.2-44.1); HEMOGLOBIN 8.9 g/dL (12.0-16.0); LYMPHOCYTES # (AUTO) 1.5 (1.0-3.2); LYMPHOCYTES % 28.1 % (18.0-39.1); MEAN CORPUSCULAR HEMOGLOBIN 28.5 pg (28-32); MEAN CORPUSCULAR HGB CONC 30.8 g/dL (31-35); MONOCYTES # (AUTO) 0.6 (0.2-0.8); MONOCYTES % 10.6 % (4.4-11.3); NEUTROPHILS # (AUTO) 3.2 (2.1-6.9); NEUTROPHILS % 58.3 % (38.7-80.0); PLATELET COUNT 103 x10e3/uL (140-360); RED BLOOD COUNT 3.12 x10e6/uL (3.6-5.1); RED CELL DISTRIBUTION WIDTH 17.5 % (11.7-14.4)
[2019-12-28 05:06] LABS: MEAN CORPUSCULAR VOLUME 92.6 fL (81-99)
[2019-12-28 05:28] LABS: ALBUMIN 2.2 g/dL (3.5-5.0); ALBUMIN/GLOBULIN RATIO 0.6 (0.8-2.0); ANION GAP 15.7 mmol/L (8-16); CALCIUM 8.7 mg/dL (8.4-10.2); CREATININE, SERUM 2.57 mg/dL (0.57-1.11); POTASSIUM 3.7 mmol/L (3.5-5.1)
[2019-12-28] MEDS: LEVOTHYROXINE SODIUM 100 MCG TAB PO SCH (06:54)
--- NOTE | 2019-12-28 07:15 | NUR ---
Noted pt to have seizure like activity during assessment, pt raised L arm in air with bilateral rigidity to the rest of her body. Noted dried blood to pt's mouth. Pt appeared to be agitated, would not verbally respond, make eye contact or make appropriate gestures. Noted blood in patient's mouth and blood started draining from R nare. Dr. Dill notified of possible seizure activity. Pt given 2mg IV ativan. Pt eventually stopped jerking and rigidity, after approx 10min. Pt continued to bleed from nose pressure applied. Noted large clots in patient's airway, suctioned with yaunker and increase sats, Venturi mask @ 30% applied. Pt remained stuporous and postical after event.
[2019-12-28] MEDS: SUCRALFATE 1 GM TAB PO SCH ×4 (07:30→21:00)
[2019-12-28] MEDS ORDERED: LORAZEPAM INJ 2 MG/ML VIAL IV ONE (07:45)
[2019-12-28] MEDS ORDERED: LORAZEPAM INJ 2 MG/ML VIAL ONE (07:50)
[2019-12-28] MEDS: MIDODRINE HCL 5 MG TABLET PO SCH ×3 (08:00→16:00)
--- NOTE | 2019-12-28 08:31 | Progress Note ---
DATE: Pulmonary Critical Care Progress Note SUBJECTIVE: The patient had some torsades yesterday and was transferred to the intensive care unit. She was seen by Cardiology. Her QT prolonging medications were held. She was continued on lidocaine. This morning, she had some seizure activity with repetitive left upper extremity movements. She required Ativan. The patient also had some spontaneous epistaxis from the right naris. The patient remains poorly responsive. PHYSICAL EXAMINATION: VITAL SIGNS: The blood pressure is 105/60, pulse ox is 98%, and the pulse is 78. HEENT: Shows no facial swelling or erythema. CARDIAC: Reveals regular rate and rhythm with normal S1 and S2. LUNGS: Auscultation of lungs reveals decreased breath sounds at the bases. There is no wheezing. ABDOMEN: Soft and nontender. There is no rebound or guarding. EXTREMITIES: Shows [id number] amputations bilaterally. LABORATORY DATA: White blood cell count is 5.5 and the hemoglobin is 8.9. The platelet count is 103. BUN to creatinine ratio is 40 to 2.57. Other electrolytes are within normal limits. Albumin is 2.2. IMPRESSION: 1. Metabolic encephalopathy. 2. Cirrhosis and portal hypertension. 3. Ventricular tachycardia and torsades. 4. Choledocholithiasis. 5. Anemia secondary to acute blood loss. 6. Peripheral vascular disease, requiring upyea-rtx-pybc amputations. 7. Chronic renal failure, stage 4. PLAN: 1. Continue lidocaine. 2. Await completion of echocardiogram and Cardiology evaluation. 3. Continue current treatment for cirrhosis. 4. Continue to monitor renal function. 5. The patient has opted for a DNR status. Greater than 35 minutes in direct critical care time. Dalton Dill MD [facility]/MEAGANL /[id number]
[2019-12-28] MEDS: DOCUSATE SODIUM 100 MG CAP PO SCH ×2 (08:32→17:00)
[2019-12-28] MEDS: OXYMETAZOLINE HCL 0.05% NAS 1 SPRAY BTL SCH ×2 (09:00→22:12)
--- NOTE | 2019-12-28 10:00 | NUR ---
Spoke with Dr. Rich Dill regarding transfusing additional blood products, add this time items on hold. Pt is DNR. order placed in computer. Pt remains postictal, vitals stable.
[2019-12-28] MEDS: COLLAGENASE 5 GM TUBE TOP SCH (11:44)
[2019-12-28] MEDS: FAMOTIDINE 20 MG/2 ML VIAL IV SCH ×2 (11:45→18:05)
[2019-12-28] MEDS: LIDOCAINE 2GM/D5W 500ML 500 ML IV SCH (12:49)
--- NOTE | 2019-12-28 19:10 | Progress Note ---
DATE: 12/28/2019 SUBJECTIVE: Ms. Leach has been moved to the intensive care unit. She is noncommunicative. The patient was DNR. She got worse overnight and intubated here. The patient had a torsade yesterday. She was transferred to the intensive care unit. She was seen by Cardiology. Her QT was prolonged. She also had what seemed to be a seizure type activity. The patient was noncommunicative. OBJECTIVE: VITAL SIGNS: Her vitals are stable currently. Blood pressure 105/60, heart rate of 78. HEENT: Normocephalic, not icteric. NECK: Supple. CHEST: Crackles at the bases. HEART: S1, S2. ABDOMEN: Soft. Distended. EXTREMITIES: No edema. SKIN: No rash. IMPRESSION: 1. Seizure type activity. 2. Metabolic encephalopathy. 3. Liver cirrhosis. 4. Arrhythmia. 5. Renal failure. 6. Prognosis is extremely poor. Recommend evaluation by hospice. Continue as ordered. Family is thinking about it. We will follow. MD TULIO Jesus/KENAN /[id number]
--- NOTE | 2019-12-28 19:30 | NUR ---
Received patient, restless on oxygen via mask and still oozing blood from the mouth. Dr Dill made aware during the day. suctioning done repositioned in bed
--- NOTE | 2019-12-28 19:49 | Progress Note ---
DATE: 12/28/2019 Nephrology Followup Note SUBJECTIVE: The patient has been transferred into the ICU following an apparent cardiac arrhythmia. Currently, gasping for breath with face mask oxygen on. RN has noted jerky movement of the left upper extremity all day today. OBJECTIVE: VITAL SIGNS: Blood pressure is overall unchanged at 110/78. Midodrine has not been given today due to the patient's inability to take by mouth. NECK: Supple without jugular venous distention. RESPIRATORY: Bilateral labored breathing. CARDIOVASCULAR: Regular S1, S2. ABDOMEN: Nondistended. EXTREMITIES: Without pitting edema. NEUROLOGICAL: The patient is lethargic, unable to assess further. LABORATORY DATA: White count is 5.4, hemoglobin 8.9, platelet count 103,000. Serum chemistry stable with creatinine of 2.5, BUN 40, potassium 3.7, bicarb 29. IMPRESSION: 1. Chronic kidney disease stage 4. 2. Blood pressure remains stable. Had been maintained on midodrine. 3. Anemia secondary to chronic kidney disease, stable hemoglobin. 4. Apparent seizure activity. Treatment per primary attending. 5. The patient is now a DNR. Prognosis does not look good. We will defer continuation of IV Lasix to primary team. Diogenes Porras MD [facility]/MOD[facility] /[id number]
[2019-12-28] MEDS: AZTREONAM 2GM/NS 100ML 100 ML IV SCH (20:12)
--- NOTE | 2019-12-28 23:00 | NUR ---
Patient unresponsive but vitals remain stable
[2019-12-29] VITALS: BP 117/79
[2019-12-29 01:00] VITALS: BP 120/78
--- NOTE | 2019-12-29 01:50 | NUR ---
Patient had 3 seizure activities, 10 minutes apart lasting less than 5 secs, progressed to a PEA, and asystole. pronounced at 0143. remained a DNR.
--- NOTE | 2019-12-29 02:00 | NUR ---
primary doctor, family, kiln head house operator and life gift informed of the .
--- NOTE | 2019-12-29 03:10 | Progress Note ---
DATE: 12/28/2019 Cardiology Progress Note SUBJECTIVE: Confused. OBJECTIVE: VITAL SIGNS: Temperature 98.4, heart rate 97, blood pressure 122/83, respiratory rate 26, O2 saturation 100%, BMI 29.4. Telemetry, in sinus rhythm. GENERAL: Chronically ill-appearing. No nosebleeds observed today. CHEST: Decreased breath sounds. CARDIOVASCULAR: Regular rate and rhythm. Normal S1, S2. ABDOMEN: Soft. EXTREMITIES: Bilateral AKA. CARDIOVASCULAR MEDICATIONS: Reviewed. Lidocaine drip, midodrine 5 mg t.i.d., furosemide 40 mg q.8 hours. LABORATORY DATA: Studies reviewed. Sodium 140, potassium 3.7, chloride 99, bicarbonate 29, BUN 40, creatinine 2.5, glucose 79. White blood cells 5.4, hemoglobin 8.9, platelets 103. INR 1.05. AST 25, ALT 11, and alkaline phosphatase 209. ASSESSMENT/PLAN: 1. A 54-year-old woman presents with an SVT. 2. Renal failure, acute. 3. Anemia. 4. Thrombocytopenia. 5. Peripheral arterial disease. 6. Chronic obstructive pulmonary disease. 7. Altered mental status. 8. Hematuria. 9. Hypothyroidism. 10. Chronic hypertension. 11. Severe systolic heart failure. 12. continue lidocaine drip. 13. Anemia, active bleeding to observe. Continue evaluation 14. Chronic systolic heart failure. Given the hypotension requiring midodrine. At this point, unable to add a beta gino. We will reassess as the patient continue to stabilize, if we are able to wean midodrine. 15. Overall with guarded prognosis. The patient's mentation precludes further conversations regarding goals of care. Reportedly has a family member to help assist with medical decisions to obtain further information. Replete electrolytes immediately to maintain potassium equivalent to 4 and magnesium ideally above or equal to 2. Nir Roberson MD [facility] /[id number] MTDD
--- NOTE | 2019-12-29 03:57 | NUR ---
SPOKE WITH GILDARDO WHO IS A FRIEND OF THE , SHE HAS NO PLANS FOR BURIAL OR HOME AND REQUESTS THAT WE CONTACT [facility]. CALL PLACED TO [facility] AT [phone], THEY ARE GOING TO CONTACT A COMMUNITY HOME AND THEY WILL BE CONTACTING US WITH ETA TO REMOTE INPATIENT C[facility]ER REMAINS
--- NOTE | 2019-12-30 04:47 | Discharge Summary ---
CONSULTING PHYSICIANS: 1. Dr. Vilma Black with Infectious Disease. 2. Dr. Omer Luna with Urology. 3. Dr. Kirby Hammond, with Nephrology. 4. Dr. Dalton Dill with Pulmonology Critical Care Medicine. 5. Dr. Joby Bueno with Gastroenterology. PRIMARY CARE PHYSICIAN: Adela Del Real MD CHIEF COMPLAINT: Hematuria. HOSPITAL COURSE: The patient is a 54-year-old female, who admitted from [facility] due to hematuria. She has a complex past medical history with cirrhosis, frequent UTIs, COPD, hepatitis C, anemia, hypothyroidism, depression, gastroesophageal reflux disease, chronic kidney disease stage 4, chronic back pain, peripheral arterial disease, anxiety, depression. PAST SURGICAL HISTORY: Bilateral bgqvt-xnd-wslj amputations, sacral skin graft, rectus hematoma evacuation, suprapubic catheter placement. ADMITTING DIAGNOSES: 1. Acute blood loss anemia, secondary to hematuria. 2. Hematuria. 3. Chronic kidney disease stage 4. 4. Cirrhosis, secondary to hepatitis C. 5. Hypothyroidism. 6. Depression/anxiety. 7. Hyperkalemia. 8. Urinary tract infection, present on admission. During her stay, it was determined that she had dislodged ureteral stent, multiple stones, mild hydronephrosis, suprapubic cath was . The dislodged left internal stent was looped in the bladder. She underwent cysto to remove the displaced stent and a left stent was placed with change of suprapubic catheterization on 12/21/2019. The patient continued to have problems with hematuria and bleeding. However, Urology did not feel comfortable with additional surgery due to hemoglobin being low. MRCP had shown cirrhosis of the liver, cholelithiasis, and choledocholithiasis was noted, but the patient was asymptomatic. Pseudomonas urinary tract infection, treated with aztreonam. She had multiple blood products including at least 12 units of packed RBCs, 6 units of platelets, 2 FFP. She was on continuous bladder irrigation, which was going into the suprapubic catheter and out the Gibson catheter, however, was consulted for embolization of the artery; however, this did not occur. She had a rapid response/code blue last Wednesday put on a lidocaine drip. Her code status was DNR. There was no intubation or CPR. Embolization was declined per Urology. On 12/27, her GFR was 19, alkaline phosphatase 309. ERCP was never done. Possibly due to the metabolic encephalopathy, she was having jerking movements, possible seizures. She gradually declined, became worse. Per the emergency department attending note that was called to room #191 for pronouncement, the patient had no heart sounds, no pulse, no response. Pupils were dilated. She was pronounced at 0143 in the morning on 12/29/2019. Dictated by Terrence Archibald, MAKING MACHINE CATCHER Gray Knott MD [facility]ANL /[id number]
== END 2019-12-29 09:00 | disposition expired | DRG 668 ==
LOC: ER 16:41 → ERHOLD 22:37 → MED/SURG2 12-16 00:31 → IMCU 12-18 23:15 → ICU 12-21 16:00 → IMCU 12-23 16:21 → ICU 12-27 17:10
PROVIDERS: ADMIT Internal Medicine; ATTEND Internal Medicine
PROC: 30233N1 Transfusion of Nonautologous Red Blood Cells into Peripheral Vein, Percutaneous Approach (ICD-10-PCS; 2019-12-15)
PROC: 0TC78ZZ Extirpation of Matter from Left Ureter, Via Natural or Artificial Opening Endoscopic (ICD-10-PCS; 2019-12-15)
PROC: 0TCB8ZZ Extirpation of Matter from Bladder, Via Natural or Artificial Opening Endoscopic (ICD-10-PCS; 2019-12-15)
PROC: BT141ZZ Fluoroscopy of Kidneys, Ureters and Bladder using Low Osmolar Contrast (ICD-10-PCS; 2019-12-15)
PROC: 0TPB80Z Removal of Drainage Device from Bladder, Via Natural or Artificial Opening Endoscopic (ICD-10-PCS; 2019-12-15)
PROC: 0T9B40Z Drainage of Bladder with Drainage Device, Percutaneous Endoscopic Approach (ICD-10-PCS; 2019-12-15)
PROC: 30233R1 Transfusion of Nonautologous Platelets into Peripheral Vein, Percutaneous Approach (ICD-10-PCS; principal; 2019-12-18)
PROC: 30243L1 Transfusion of Nonautologous Fresh Plasma into Central Vein, Percutaneous Approach (ICD-10-PCS; 2019-12-26)
PROC: 30243R1 Transfusion of Nonautologous Platelets into Central Vein, Percutaneous Approach (ICD-10-PCS; 2019-12-26)
DX: T83.593A Infection and inflammatory reaction due to other urinary stents, initial encounter (principal); G93.41 Metabolic encephalopathy; K72.00 Acute and subacute hepatic failure without coma; I50.23 Acute on chronic systolic (congestive) heart failure; D62 Acute posthemorrhagic anemia; N17.9 Acute kidney failure, unspecified; E87.1 Hypo-osmolality and hyponatremia; N39.0 Urinary tract infection, site not specified; J90 Pleural effusion, not elsewhere classified; I47.2 Ventricular tachycardia; N18.4 Chronic kidney disease, stage 4 (severe); K80.60 Calculus of gallbladder and bile duct with cholecystitis, unspecified, without obstruction; N13.2 Hydronephrosis with renal and ureteral calculous obstruction; I13.0 Hypertensive heart and chronic kidney disease with heart failure and stage 1 through stage 4 chronic kidney disease, or unspecified chronic kidney disease; I47.1 Supraventricular tachycardia; K76.6 Portal hypertension; T83.123A Displacement of other urinary stents, initial encounter; D69.6 Thrombocytopenia, unspecified; R31.9 Hematuria, unspecified; K74.60 Unspecified cirrhosis of liver; I45.81 Long QT syndrome; R31.0 Gross hematuria; I73.9 Peripheral vascular disease, unspecified; Z89.612 Acquired absence of left leg above knee; Z89.611 Acquired absence of right leg above knee; B19.20 Unspecified viral hepatitis C without hepatic coma; J44.9 Chronic obstructive pulmonary disease, unspecified; E03.9 Hypothyroidism, unspecified; F32.9 Major depressive disorder, single episode, unspecified; B96.4 Proteus (mirabilis) (morganii) as the cause of diseases classified elsewhere; D63.1 Anemia in chronic kidney disease; Z66 Do not resuscitate; T19.8XXA Foreign body in other parts of genitourinary tract, initial encounter; I95.9 Hypotension, unspecified; G89.4 Chronic pain syndrome; Z11.59 Encounter for screening for other viral diseases
CPT/HCPCS: 36415; 51700; 71045; 74176; 74181; 74420; 74470; 76700; 80053; 81001; 82550; 82553; 82948; 83605; 83735; 83880; 84080; 84100; 84132; 84484; 85025; 85610; 85730; 86850; 86900; 86920; 86922; 86945; 87040; 87071; 87086; 87186; 87205; 87635; 93005; 93306; 93971; 96361; 97139; 99251; 99284; C1758; C2617; J0610; J0692; J1817; J1940; J2001; J2060; J2405; J2543; J3430; J3475; J7040; J7050; J7799; P9016; P9017; P9034